=== PATIENT | female | born 1975 | race Caucasian/White ===

== ENCOUNTER 2016-11-25 22:04 | Emergency (ER) | payer MEDICARE, MEDICAID ==
[~2016-11-25] VITALS: Ht 160 cm; Wt 136.1 kg
[~2016-11-25 22:04] MED LIST: AGM875T PO; ALBU0.632 IH; ALBU2.5V52 INH; ALBU8.5H2 IH; AMMO120C3 TP; ASP81CT PO; AZAT50TA PO; AZIT500T PO; AZTH50T PO; BENZ200C25 PO; BPR150TCR PO; BUDE0.5A5 IH; BUME2TAB3 PO; CALC-52 PO; CARDIZEM; CARV3.12 PO; CEFA1TAB PO; CEFD300C16 PO; CELE50CA PO; CEPH500C PO; CHOL500019 PO; CLCX100C PO; CLN150C PO; CTLP20T PO; DIAZ5TAB3 PO; DIPH1TAB25 PO; DOXY100C2 PO; DULO30CA PO; DULO30CA3 PO; DULO60CA58 PO; DULO60CA6 PO; ERGO500028 PO; FAMO20TA13 PO; FENO145T20 PO; FENO160T PO; FENO160T6 PO; FERR-57 PO; FLT05NA16 NSEACH; FLT11013 IH; FLUT16SP22; FORM20VI IH; FRSM40T PO; FURO20TA4 PO; FURO40TA4 PO; FURO80TA PO; FURO80TA3 PO; GABA-488 PO; GABA300C PO; GABA600T2 PO; GBPN100C PO; GLIP5TAB13 PO; HYDR1CAP2 PO; IBP600T1 PO; IBUP200T48 PO; INSULIN; IPRA3AMP11 INH; KCL 10 MEQ PO; KCL20TCR PO; LEVO500T69 PO; LEVO500T78 PO; LEVO750T6 PO; LVT.05T PO; MAGN400C PO; MAGN400T6 PO; MELO-195 PO; METH500T7 PO; METH750T3 PO; METO25TA PO; METO5TAB38 PO; MNTL10T PO; MONT10TA24 PO; MORP15TA PO; MORP15TA8 PO; MTL2.5T PO; MTL5T PO; MTP25TSR PO; MULT1TAB61 PO; NCT14P TD; NCT14P TOP; OMEP20CA12 PO; ONDAN4ODT PO; OXC5T PO; OXYC-272 PO; OXYC-465 PO; OXYC10TA8 PO; OXYC15TA74 PO; OXYGEN; PANT40TA PO; PANT40TA2 PO; PANT40TA3 PO; PHEN200T27 PO; PHOS250T5 PO; PNT40TEC PO; POTA10CA43 PO; POTA20TA15 PO; POTA20TA7 PO; POTA8CAP9 PO; POTASSIUM CHLORIDE PO; PRD10T PO; PRD20T PO; PRED10TA PO; PREG100C22 PO; PREG50C PO; ROPI0.25 PO; ROPI1TAB2 PO; ROPI2TAB4 PO; RPN.25T PO; SENN1TAB27 PO; SLMFT1E INH; SPIR25TA3 PO; SPRN25T PO; SULF1TAB38 PO; TIOT18CA IH; TIOT18CA2 IH; TIZA2TAB3 PO; TIZA4TAB55 PO; TRAZ150T42 PO; VARE1TAB17 PO; [UNRECOGNIZED DRUG - CODE] PO; [UNRECOGNIZED DRUG - OTHER] PO; oxygen; vicodin PO
--- OUTSIDE RECORDS SUMMARY | 2016-11-25 22:12 | XMS REPORT | Continuity of Care Document ---
Author Author [facility] Organization [facility] Address Unknown Phone Unavailable Care Team Providers Care Industry Analyst Name Role Phone Alfonzo Cris PCP [phone] Source Comments Some departments are not documenting in the electronic medical record. If you do not see the information that you expected, contact Release of Information in the Health Information Management department at [phone] for further assistance in locating additional records.[facility] Active Allergies and Adverse Reactions Allergen Noted Date Severity Reactions Comments Erythromycin 06/08/2013 STOMACH UPSET Tylenol 06/08/2013 UNKNOWN, SEE COMMENTS Per patient has caused increased LFTs in the past Current Medications Prescription Sig. Disp. Refills Start End Date Status Date tiotropium (SPIRIVA) 18 Inhale 18 mcg by mouth Active mcg capsule for inhaler daily. levothyroxine (SYNTHROID) Take 50 mcg by mouth Active 50 mcg tablet daily. montelukast (SINGULAIR) Take 10 mg by mouth at Active 10 mg tablet bedtime daily. rOPINIRole (REQUIP) 0.25 Take 0.25 mg by mouth Active mg tablet three times daily. budesonide respule Inhale 0.5 mg solution as Active (PULMICORT) 0.5 mg/2 mL directed twice daily. nebulizer solution furosemide (LASIX) 80 mg Take 80 mg by mouth twice Active tablet daily. spironolactone Take 25 mg by mouth Active (ALDACTONE) 25 mg tablet daily. magnesium oxide (MAG-OX) Take 400 mg by mouth Active 400 mg tablet daily. predniSONE (DELTASONE) 20 Take 20 mg by mouth Active mg tablet daily. azaTHIOprine (IMURAN) 50 Take 50 mg by mouth Active mg tablet daily. pantoprazole DR Take 40 mg by mouth Active (PROTONIX) 40 mg tablet daily. glipiZIDE CR (GLUCOTROL Take 2.5 mg by mouth Active XL) 2.5 mg tablet daily. cetirizine (ZYRTEC) 10 mg Take 10 mg by mouth Active tablet daily. ergocalciferol (VITAMIN Take 50,000 Units by Active D) 50,000 unit capsule mouth every Friday. phosphorus (PHOSPHA 250 Take 1 Tab by mouth three Active NEUTRAL) 250 mg tablet times daily. methocarbamol (ROBAXIN) Take 1,000 mg by mouth Active 500 mg tablet four times daily. potassium chloride SR Take 40 mEq by mouth Active (K-DUR) 20 mEq tablet twice daily. metolazone (ZAROXOLYN) Take 2.5 mg by mouth Active 2.5 mg tablet every morning. pregabalin (LYRICA) 100 Take 100 mg by mouth Active mg capsule three times daily. fenofibrate(+) (TRIGLIDE) Take 160 mg by mouth Active 160 mg tablet daily. DULoxetine [address] (CYMBALTA) Take 90 mg by mouth Active 60 mg capsule daily. albuterol 0.5% Inhale 2.5 mg solution as Active (PROVENTIL; VENTOLIN) 2.5 directed every 6 hours as mg/0.5 mL Nebu nebulizer needed. solution traMADol (ULTRAM) 50 mg Take 1 Tab by mouth every 30 Tab 0 07/03/20 Active tablet 6 hours as needed for 13 Pain. 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 Social History Tobacco Use Types Packs/Day Years Used Date Current Every Day Smoker Cigarettes 1.5 26 Smokeless Tobacco: Never Used Alcohol Use Drinks/Week oz/Week Comments No Last Filed Vital Signs Vital Sign Reading Time Taken Blood Pressure 149/82 11/26/2013 2:24 PM HYDROELECTRIC PRODUCTION TECHNICIAN Pulse 105 11/26/2013 2:24 PM HYDROELECTRIC PRODUCTION TECHNICIAN Temperature 36.6 C (97.9 F) 07/03/2013 7:38 AM CDT Respiratory Rate - - Height 1.676 m (5' 6") 11/26/2013 2:24 PM HYDROELECTRIC PRODUCTION TECHNICIAN Weight 152.862 kg (337 lb) 11/26/2013 2:24 PM HYDROELECTRIC PRODUCTION TECHNICIAN Body Mass Index 54.42 11/26/2013 2:24 PM HYDROELECTRIC PRODUCTION TECHNICIAN Oxygen Saturation 95% 07/03/2013 7:38 AM CDT Plan of Care Health Maintenance Due Date Last Done Comments Physical (Comprehensive) 01/04/1983 Exam Pertussis Vaccine 01/04/1987 Tetanus Vaccine 01/04/1993 Cervical Cancer Screening 01/04/1997 Influenza Vaccine 05/23/2016 Results from Last 3 Months Not on file
[2016-11-25] MEDS ORDERED: CEPHALEXIN 250 MG (KEFLEX) CAP PO ONE (22:15)
[2016-11-25] MEDS ORDERED: LIDOCAINE 2% 20 ML (XYLOCAINE) VIAL INJ ONE (22:15)
--- NOTE | 2016-11-25 22:18 | ED Upper Extremity ---
General Stated Complaint: R THUMB LAC Source: patient Exam Limitations: no limitations History of Present Illness Time seen by provider: 22:14 Initial Comments To ER with a laceration of the dorsal aspect of the right thumb as she was trying to notch a dowel beatriz just prior to arrival. She arrives without oxygen Onset: this evening Severity: moderate Pain/Injury Location: right thumb Modifying Factors: Worse With Movement Allergies and Home Medications Allergies Coded Allergies: acetaminophen (Verified Allergy, Unknown, 06/09/14) erythromycin base (Verified Allergy, Unknown, PT CAN TAKE AZITHROMYCIN, ) minocycline (Verified Adverse Reaction, Mild, N/V, 06/09/14) Home Medications Calcium Citrate/Vitamin D3 1 Each Tablet 1 TAB PO DAILY (Reported) Carvedilol 3.125 Mg Tablet 3.125 MG PO BID (Reported) Duloxetine HCl 60 Mg Capsule.dr 60 MG PO BID (Reported) Gabapentin 300 Mg Capsule 300 MG PO TID (Reported) TAKES ALONG WITH 600MG TABLET Gabapentin 600 Mg Tablet 600 MG PO TID (Reported) TAKES ALONG WITH 300MG CAPSULE Ibuprofen 200 Mg Tablet 800 MG PO TID PRN PRN PAIN (Reported) TAKES 4 (200MG) TABLETS Levothyroxine Sodium 50 Mcg Tablet 50 MCG PO DAILY (Reported) Montelukast Sodium 10 Mg Tablet 10 MG PO HS (Reported) Multivitamins with Iron 1 Each Tab.chew 1 TAB.CHEW PO DAILY (Reported) Oxycodone HCl/Acetaminophen 1 Each Tablet 1 TAB PO TID PRN PRN PAIN (Reported) Pantoprazole Sodium 40 Mg Tablet.dr 40 MG PO DAILY (Reported) Ropinirole HCl 1 Mg Tablet 2 MG PO DAILY (Reported) TAKES 2 (1MG) TABLETS Ropinirole HCl 1 Mg Tablet 1 MG PO 1200,2100 (Reported) Tiotropium [place] 1 Inh Aerp 1 CAP IH DAILY PRN PRN SHORTNESS OF BREATH ( Reported) Tizanidine Hcl 4 Mg Tablet 4 MG PO TID (Reported) Constitutional: see HPI EENTM: see HPI Respiratory: no symptoms reported Cardiovascular: no symptoms reported Musculoskeletal: no symptoms reported Skin: see HPI Psychiatric/Neurological: No Symptoms Reported Past Crggydt-Dibsng-Bnmduo Hx Patient Social History Type Used: Cigarettes Former Smoker/When Quit: Nov 21, 2013 2nd Hand Smoke Exposure: Yes Recent Foreign Travel: No Contact w/Someone Who Travel: No Recent Hopitalizations: Yes Immunizations Up To Date Tetanus Booster (TDap): Less than 5yrs Date of Pneumonia Vaccine: Jun 22, 2016 Date of Influenza Vaccine: Jun 22, 2016 Seasonal Allergies Seasonal Allergies: No Surgeries HX Surgeries: Yes (VOCAL CORDS, BACK, KNEE SCOPE) Surgeries: Appendectomy, Gallbladder, Orthopedic, Tonsillectomy Respiratory Hx Respiratory Disorders: Yes Respiratory Disorders: Sleep Apnea, COPD Cardiovascular Hx Cardiac Disorders: Yes (CHF) Cardiac Disorders: Chronic Edema/Swelling, High Cholesterol Neurological Hx Neurological Disorders: Yes Neurological Disorders: Headaches /Migraines Reproductive System Hx Reproductive Disorders: No Sexually Transmitted Disease: No HIV/AIDS: No Female Reproductive Disorders: Menstrual Problems, Ovarian Cyst Genitourinary Hx Genitourinary Disorders: Yes Genitourinary Disorders: Renal Failure, UTI-Chronic Gastrointestinal Hx Gastrointestinal Disorders: Yes Gastrointestinal Disorders: Gastroesophageal Reflux, Liver Disease/Jaundice Musculoskeletal Hx Musculoskeletal Disorders: Yes ( RESTLESS LEG SYNDROME) Musculoskeletal Disorders: Fibromyalgia Endocrine Hx Endocrine Disorders: Yes Endocrine Disorders: Hypothyroidsim, Diabetes, Non-Insulin dep HEENT HX ENT Disorders: Yes (PARALYZED VOCAL CORDS/VOCAL CORD DYSFUNCTION) HEENT Disorders: Dysphagia Cancer Hx Cancer: No Psychosocial Hx Psychiatric Problems: Yes Behavioral Health Disorders: Depression Integumentary HX Skin/Integumentary Disorder: No (L Lower Leg cellulitis) Skin/Integumentary Disorders: Recent Skin Changes Blood Transfusions Hx Blood Disorders: No Adverse Reaction to a Blood Tr: No Family Medical History Significant Family History: Heart Disease, Hypertension Family Medial History: Family history: Hypertension 09 SISTER (43 ) Family history: Thyroid disorder 03 MOTHER (41 ) Stroke 03 FATHER (47 ) Physical Exam Vital Signs Capillary Refill : General Appearance: WD/WN no apparent distress HEENT: PERRL/EOMI normal ENT inspection Neck: non-tender full range of motion Respiratory: no respiratory distress no accessory muscle use Gastrointestinal: normal bowel sounds non tender soft Shoulder: normal inspection non-tender Elbow/Forearm: normal inspection, non-tender, Left Wrist: Yes normal inspection, Yes non-tender Hand: Left, laceration (1 semi-laceration to the dorsal aspect of the IP joint right thumb depth to this obtaining his tissues. She maintains flexion and extension abilities.) Neurologic/Tendon: normal sensation normal motor functions normal tendon functions Neurologic/Psychiatric: alert normal mood/affect Skin: normal color warm/dry Laceration Repair : Wound Location: Upper Extremities Wound Length (cm): 1 Wound's Depth, Shape: sub Q Wound Explored: clean Irrigated w/ Saline (ccs): 30 Betadine Prep?: Yes Anesthesia: 1% Lidocaine Volume Anesthetic (ccs): 1 Suture: Ethlion Suture Size: 5-0 Number of Sutures: 3 Layer Closure?: 1 Number Deep Layer Sutures: 0 Progress Area anesthetized locally with 1 mL of 2 percent lidocaine without epinephrine. Wound then scrubbed with waxing/saline solution and irrigated with 30 mL of the same. Wound then closed with 3 simple interrupted sutures size 5-0 Ethilon. Progress/Results/Core Measures Results/Orders My Orders Orders-ERICA MCPHERSON APRN Lidocaine 2% Injection 20 Ml (Xylocaine (11/25/16 22:15) Cephalexin Capsule (Keflex Capsule) (11/25/16 22:15) Departure Impression Impression: Primary Impression: Laceration of thumb Qualified Code: S61.011A - Laceration without foreign body of right thumb without damage to nail, initial encounter Disposition: HOME, SELF-CARE Condition: Stable Departure-Patient Inst. Decision time for Depature: 22:16 Referrals: NO,LOCAL PHYSICIAN (PCP/Family) Primary Care Physician Patient Instructions: Laceration Repair With Stitches (DC) Add. Discharge Instructions: 1. Return to the emergency room to have the stitches removed in 10 days 2. Return to ER before then for any sign of infection such as redness or swelling or fevers 3. You may shower and let water run over this starting tomorrow. However, do not soak it in water such as a hot tub, bath time, dish sink until the stitches are removed. ERICA MCPHERSON APRN Nov 25, 2016 22:18
[2016-11-25 22:34] VITALS: BP 0/0
== END 2016-11-25 22:34 | disposition home or self-care (01) ==
LOC: EDUNIT# 22:04 → ER 22:06
DX: S61.011A Laceration without foreign body of right thumb without damage to nail, initial encounter (principal); J44.9 Chronic obstructive pulmonary disease, unspecified; E11.9 Type 2 diabetes mellitus without complications; Z79.899 Other long term (current) drug therapy; Z87.891 Personal history of nicotine dependence; W45.8XXA Other foreign body or object entering through skin, initial encounter; Y99.8 Other external cause status
CPT/HCPCS: 12001

== ENCOUNTER → 2016-12-04 | Outpatient (CLI) | payer MEDICARE, MEDICAID ==
[~2016-12-04] MED LIST changes: +CLIN300C11 PO; +CLOT15CR4 TP; +LACT1CAP72 PO
--- OUTSIDE RECORDS SUMMARY | 2016-12-04 08:45 | XMS REPORT | Continuity of Care Document ---
Author Author [facility] Organization [facility] Address Unknown Phone Unavailable Care Team Providers Care Goat Driver Name Role Phone Alfonzo Cris PCP [phone] Source Comments Some departments are not documenting in the electronic medical record. If you do not see the information that you expected, contact Release of Information in the Health Information Management department at [phone] for further assistance in locating additional records.[facility] Active Allergies and Adverse Reactions Allergen Noted [...] Taken Blood Pressure 149/82 11/26/2013 2:24 PM [employer]ER Pulse 105 11/26/2013 2:24 PM [employer] Temperature 36.6 C (97.9 F) 07/03/2013 7:38 AM CDT Respiratory Rate - - Height 1.676 m (5' 6") 11/26/2013 2:24 PM [employer] Weight 152.862 kg (337 lb) 11/26/2013 2:24 PM [employer] Body Mass Index 54.42 11/26/2013 2:24 PM [employer] Oxygen Saturation 95% 07/03/2013 7:38 AM CDT Plan of Care Health Maintenance Due Date Last Done Comments Physical (Comprehensive) 01/04/1983 Exam Pertussis Vaccine 01/04/1987 Tetanus Vaccine 01/04/1993 Cervical Cancer Screening 01/04/1997 Influenza Vaccine 05/23/2016 Results from Last 3 Months Not on file
[2016-12-04 08:53] LABS: MEAN PLATELET VOLUME 9.6 FL (7.4-10.4); RED BLOOD COUNT 4.29 10^6/uL (4.35-5.85); RED CELL DISTRIBUTION WIDTH 16.1 % (10.0-14.5); WHITE BLOOD COUNT 18.4 10^3/uL (4.3-11.0)
[2016-12-04 09:17] LABS: ALANINE AMINOTRANSFERASE 17 U/L (0-55); ALBUMIN 3.8 G/DL (3.2-4.5); ANION GAP 11 MMOL/L (5-14); ASPARTATE AMINO TRANSFERASE 14 U/L (5-34); BILIRUBIN,TOTAL 0.2 MG/DL (0.1-1.0); BLOOD UREA NITROGEN 9 MG/DL (7-18); BUN/CREATININE RATIO 12; CALCIUM 8.9 MG/DL (8.5-10.1); CARBON DIOXIDE 23 MMOL/L (21-32); CHLORIDE 105 MMOL/L (98-107); CHOLESTEROL 132 MG/DL (< 200); CREATININE SERUM 0.73 MG/DL (0.60-1.30); DIRECT LDL 76 MG/DL (1-129); GFR ESTIMATED > 60; GLUCOSE 97 MG/DL (70-105); SODIUM 139 MMOL/L (135-145); TOTAL PROTEIN 6.5 G/DL (6.4-8.2); TRIGLYCERIDES 110 MG/DL (<150); VLDL CHOLESTEROL 22 MG/DL (5-40)
== END ==
LOC: LAB 08:41
PROVIDERS: ATTEND Family Medicine
DX: E78.5 Hyperlipidemia, unspecified (principal); D50.9 Iron deficiency anemia, unspecified
CPT/HCPCS: 36415; 80053; 80061; 85027

== ENCOUNTER 2016-12-05 18:28 | Emergency (ER) | payer MEDICARE, MEDICAID ==
[~2016-12-05] VITALS: Ht 167.6 cm; Wt 136.1 kg
[~2016-12-05 18:28] MED LIST changes: -CLIN300C11 PO; -CLOT15CR4 TP; -LACT1CAP72 PO
[2016-12-05 18:46] VITALS: BP 138/54
== END 2016-12-05 18:58 | disposition home or self-care (01) ==
LOC: EDUNIT# 18:28 → ER 18:29
DX: S61.011D Laceration without foreign body of right thumb without damage to nail, subsequent encounter (principal)

== ENCOUNTER 2016-12-13 17:51 | Emergency (ER) | payer MEDICARE, MEDICAID ==
[~2016-12-13] VITALS: Ht 167.6 cm; Wt 131.5 kg
[2016-12-13] MEDS ORDERED: oxyCODONE/APAP 5/325MG (PERCOCET 5) TABLET PO ONE (18:15)
[2016-12-13] MEDS ORDERED: KETOROLAC 60 MG/2 ML VIAL IM ONE (18:15)
--- NOTE | 2016-12-13 18:17 | ED Back Pain ---
General Chief Complaint: Back Problems Stated Complaint: BACK PAIN Nursing Triage Note: TO ROOM PER W/C ACCOMPIED BY 2 MALES REPORTS THAT SHE HAS CHRONIC BACK PAIN AND HER DR IN [place] DID NOT REFILL HER OXYCODONE. SHE TOOK MORPHINE 15MG PO LAST NIGHT THAT SHE HAD LEFT OVER DID NOT HELP PAIN Nursing Sepsis Screen: No Definite Risk Source of Information: Patient Exam Limitations: No Limitations History of Present Illness Time Seen by Provider: 18:15 Initial Comments To ER with reports of chronic back pain worse than usual that radiates down the right leg. This is been worse than usual for the past few days. She also reports swelling and redness of the left lower leg for the past 3 days. No fevers or chills. Regular doctor is Dr. alberto in [place] and reportedly he has stopped her oxycodone/morphine. No loss of bowel or bladder control. No saddle anesthesia. No history of cancer or IV drug use. Location: Lumbar Spine Timing/Duration: 2-3 Days Severity: Moderate Pain/Injury Location: Back Associated Symptoms: lower back pain Allergies and Home Medications Allergies Coded Allergies: acetaminophen (Verified Allergy, Unknown, 06/09/14) erythromycin base (Verified Allergy, Unknown, PT CAN TAKE AZITHROMYCIN, ) minocycline (Verified Adverse Reaction, Mild, N/V, 06/09/14) Home Medications Calcium Citrate/Vitamin D3 1 Each Tablet, 1 TAB PO DAILY, (Reported) Carvedilol 3.125 Mg Tablet, 3.125 MG PO BID, (Reported) Duloxetine HCl 60 Mg Capsule.dr, 60 MG PO BID, (Reported) Gabapentin 300 Mg Capsule, 300 MG PO TID, (Reported) TAKES ALONG WITH 600MG TABLET Gabapentin 600 Mg Tablet, 600 MG PO TID, (Reported) TAKES ALONG WITH 300MG CAPSULE Ibuprofen 200 Mg Tablet, 800 MG PO TID PRN for PAIN, (Reported) TAKES 4 (200MG) TABLETS Levothyroxine Sodium 50 Mcg Tablet, 50 MCG PO DAILY, (Reported) Montelukast Sodium 10 Mg Tablet, 10 MG PO HS, (Reported) Multivitamins with Iron 1 Each Tab.chew, 1 TAB.CHEW PO DAILY, (Reported) Oxycodone HCl/Acetaminophen 1 Each Tablet, 1 TAB PO TID PRN for PAIN, (Reported) Pantoprazole Sodium 40 Mg Tablet.dr, 40 MG PO DAILY, (Reported) Ropinirole HCl 1 Mg Tablet, 2 MG PO DAILY, (Reported) TAKES 2 (1MG) TABLETS Ropinirole HCl 1 Mg Tablet, 1 MG PO 1200,2100, (Reported) Tiotropium [place] 1 Inh Aerp, 1 CAP IH DAILY PRN for SHORTNESS OF BREATH, ( Reported) Tizanidine Hcl 4 Mg Tablet, 4 MG PO TID, (Reported) Constitutional: see HPI, No chills, No fever EENTM: see HPI Respiratory: no symptoms reported Cardiovascular: no symptoms reported Genitourinary: no symptoms reported Musculoskeletal: see HPI, back pain Skin: no symptoms reported Psychiatric/Neurological: No Symptoms Reported Past Zzzzpgv-Kytzss-Mmqfbq Hx Patient Social History Alcohol Use: Denies Use Recreational Drug Use: No Smoking Status: Current Everyday Smoker Type Used: Cigarettes Former Smoker/When Quit: Nov 21, 2013 2nd Hand Smoke Exposure: Yes Recent Foreign Travel: No Contact w/Someone Who Travel: No Recent Infectious Disease Expo: No Recent Hopitalizations: Yes Immunizations Up To Date Tetanus Booster (TDap): Less than 5yrs Date of Pneumonia Vaccine: Jun 22, 2016 Date of Influenza Vaccine: Jun 22, 2016 Seasonal Allergies Seasonal Allergies: No Surgeries HX Surgeries: Yes (VOCAL CORDS, BACK, KNEE SCOPE) Surgeries: Appendectomy, Gallbladder, Orthopedic, Tonsillectomy Respiratory Hx Respiratory Disorders: Yes Respiratory Disorders: Sleep Apnea, COPD Cardiovascular Hx Cardiac Disorders: Yes (CHF) Cardiac Disorders: Chronic Edema/Swelling, High Cholesterol Neurological Hx Neurological Disorders: Yes Neurological Disorders: Headaches /Migraines Reproductive System Hx Reproductive Disorders: No Sexually Transmitted Disease: No HIV/AIDS: No Female Reproductive Disorders: Menstrual Problems, Ovarian Cyst Genitourinary Hx Genitourinary Disorders: Yes Genitourinary Disorders: Renal Failure, UTI-Chronic Gastrointestinal Hx Gastrointestinal Disorders: Yes Gastrointestinal Disorders: Gastroesophageal Reflux, Liver Disease/Jaundice Musculoskeletal Hx Musculoskeletal Disorders: Yes ( RESTLESS LEG SYNDROME) Musculoskeletal Disorders: Fibromyalgia Endocrine Hx Endocrine Disorders: Yes Endocrine Disorders: Hypothyroidsim, Diabetes, Non-Insulin dep HEENT HX ENT Disorders: Yes (PARALYZED VOCAL CORDS/VOCAL CORD DYSFUNCTION) HEENT Disorders: Dysphagia Cancer Hx Cancer: No Psychosocial Hx Psychiatric Problems: Yes Behavioral Health Disorders: Depression Integumentary HX Skin/Integumentary Disorder: No (L Lower Leg cellulitis) Skin/Integumentary Disorders: Recent Skin Changes Blood Transfusions Hx Blood Disorders: No Adverse Reaction to a Blood Tr: No Family Medical History Significant Family History: Heart Disease, Hypertension Family Medial History: Family history: Hypertension 09 SISTER (43 ) Family history: Thyroid disorder 03 MOTHER (41 ) Stroke 03 FATHER (47 ) Physical Exam Vital Signs Vital Sign - Last 12Hours 12/13/16 17:54 Temp 97.6 Pulse 93 Resp 18 B/P (MAP) 136/79 Pulse Ox 96 O2 Delivery Room Air Capillary Refill : Less Than 3 Seconds General Appearance: No Apparent Distress, WD/WN, Chronically ill, Obese HEENT: PERRL/EOMI, TMs Normal Neck: Full Range of Motion, Normal Inspection Respiratory: No Accessory Muscle Use, No Respiratory Distress Gastrointestinal: Non Tender, Soft Extremity: Other (there is erythema and swelling to the left lower leg) Neurologic/Psychiatric: Alert, Oriented x3 Skin: Normal Color, Warm/Dry Laceration Repair : Suture Size: 5-0 Progress/Results/Core Measures Results/Orders Lab Results Laboratory Tests Test 12/13/16 18:29 Range/Units White Blood Count 13.5 H 4.3-11.0 10^3/uL Red Blood Count 4.36 4.35-5.85 10^6/uL Hemoglobin 12.1 11.5-16.0 G/DL Hematocrit 39 35-52 % Mean Corpuscular Volume 88 80-99 FL Mean Corpuscular Hemoglobin 28 25-34 PG Mean Corpuscular Hemoglobin Concent 31 L 32-36 G/DL Red Cell Distribution Width 16.1 H 10.0-14.5 % Platelet Count 358 130-400 10^3/uL Mean Platelet Volume 10.3 7.4-10.4 FL Neutrophils (%) (Auto) 78 H 42-75 % Lymphocytes (%) (Auto) 15 12-44 % Monocytes (%) (Auto) 5 0-12 % Eosinophils (%) (Auto) 2 0-10 % Basophils (%) (Auto) 0 0-10 % Neutrophils # (Auto) 10.6 H 1.8-7.8 X 10^3 Lymphocytes # (Auto) 2.0 1.0-4.0 X 10^3 Monocytes # (Auto) 0.7 0.0-1.0 X 10^3 Eosinophils # (Auto) 0.2 0.0-0.3 10^3/uL Basophils # (Auto) 0.1 0.0-0.1 10^3/uL My Orders Orders - ERICA MCPHERSON [employer] Cbc With Automated Diff (12/13/16 18:14) Us Venous Lower Ext Lt (12/13/16 18:14) Oxycodone/Apap 5/325mg Tablet (Percocet (12/13/16 18:15) Ketorolac Injection (Toradol Injection) (12/13/16 18:15) Medications Given in ED Current Medications Medications Dose Ordered Sig/Simon Route Start Time Stop Time Status Last Admin Dose Admin Ketorolac Tromethamine 60 mg ONCE ONCE IM 12/13/16 18:15 12/13/16 18:17 DC 12/13/16 18:21 60 MG Oxycodone/ Acetaminophen 1 tab ONCE ONCE PO 12/13/16 18:15 12/13/16 18:17 DC 12/13/16 18:21 1 TAB Vital Signs/I&O Vital Sign - Last 12Hours 12/13/16 17:54 Temp 97.6 Pulse 93 Resp 18 B/P (MAP) 136/79 Pulse Ox 96 O2 Delivery Room Air Blood Pressure Mean: 98 Departure Impression Impression: Primary Impression: Cellulitis of left ankle Disposition: 01 HOME, SELF-CARE Condition: Stable Departure-Patient Inst. Decision time for Depature: 19:25 Referrals: ARNAV ALBERTO DO (PCP/Family) Primary Care Physician Patient Instructions: Cellulitis (Skin Infection), Adult (DC), MANAGING YOUR CHRONIC PAIN Add. Discharge Instructions: 1. Return to ER for any concerns 2. Tylenol and Motrin for any fevers 3. Antibiotics as directed 4. Follow-up with your regular doctor next week for recheck All discharge instructions reviewed with patient and/or family. Voiced understanding. Scripts Lactobacillus Combo No.10 (Probiotic) 1 Each Capsule 1 EACH PO BID, #30 CAP Prov: ERICA MCPHERSON [employer] 12/13/16 Clindamycin HCl (Clindamycin HCl) 300 Mg Capsule 300 MG PO TID, #21 CAP Prov: ERICA MCPHERSON [employer] 12/13/16 ERICA MCPHERSON APRN Dec 13, 2016 18:17
[2016-12-13 18:35] LABS: BASOPHILS # (AUTO) 0.1 10^3/uL (0.0-0.1); BASOPHILS % (AUTO) 0 % (0-10); EOSINOPHILS # (AUTO) 0.2 10^3/uL (0.0-0.3); EOSINOPHILS % (AUTO) 2 % (0-10); LYMPHOCYTES % (AUTO) 15 % (12-44); MEAN CORPUSCULAR HEMOGLOBIN 28 PG (25-34); MEAN CORPUSCULAR HGB CONC 31 G/DL (32-36); MEAN CORPUSCULAR VOLUME 88 FL (80-99); MEAN PLATELET VOLUME 10.3 FL (7.4-10.4); MONOCYTES # (AUTO) 0.7 X 10^3 (0.0-1.0); MONOCYTES % (AUTO) 5 % (0-12); NEUTROPHILS # (AUTO) 10.6 X 10^3 (1.8-7.8); NEUTROPHILS % (AUTO) 78 % (42-75); PLATELET COUNT 358 10^3/uL (130-400); RED BLOOD COUNT 4.36 10^6/uL (4.35-5.85); RED CELL DISTRIBUTION WIDTH 16.1 % (10.0-14.5); WHITE BLOOD COUNT 13.5 10^3/uL (4.3-11.0)
[2016-12-13] MEDS ORDERED: CLIN300C11 PO (19:26)
[2016-12-13] MEDS ORDERED: LACT1CAP72 PO (19:26)
--- NOTE | 2016-12-13 19:34 | Diagnostic Imaging Report ---
PROCEDURE: US left lower extremity venous. TECHNIQUE: Multiple real-time grayscale images were obtained over the left lower extremity in various projections. Additional duplex Doppler and color Doppler images were also obtained. INDICATION: Lower extremity swelling and redness. FINDINGS: There is normal compression, flow and augmentation demonstrated from the left common femoral vein to the popliteal vein and visualized calf veins are patent. IMPRESSION: No sonographic evidence of left lower extremity deep venous thrombosis. Dictated by: Dictated on workstation # [id number]
[2016-12-13] MEDS ORDERED: LIDOCAINE 1% INJ 20 ML (XYLOCAINE) VIAL INJ ONE (19:45)
[2016-12-13] MEDS ORDERED: cefTRIAXone 1 GM (ROCEPHIN) VIAL IM ONE (19:45)
[2016-12-13 19:49] VITALS: BP 134/99
--- OUTSIDE RECORDS SUMMARY | 2016-12-15 13:29 | XMS REPORT | Continuity of Care Document ---
Author Author [facility] Organization [facility] Address Unknown Phone Unavailable Care Team Providers Care Harness Cutter Name Role Phone Alfonzo Cris PCP [phone] Source Comments Some departments are not documenting in the electronic medical record. If you do not see the information that you expected, contact Release of Information in the Health Information Management department at [phone] for further assistance in locating additional records.[facility] Active Allergies and Adverse Reactions Allergen [...] Taken Blood Pressure 149/82 11/26/2013 2:24 PM [employer]ST[employer]ARD[employer] Pulse 105 11/26/2013 2:24 PM [employer] Temperature 36.6 C (97.9 F) 07/03/2013 7:38 AM CDT Respiratory Rate - - Height 1.676 m (5' 6") 11/26/2013 2:24 PM [employer] ST[employer]ARD/STEWARDESS Weight 152.862 kg (337 lb) 11/26/2013 2:24 PM [employer]STEWARD[employer] Body Mass Index 54.42 11/26/2013 2:24 PM [employer] STEWARD/STEWARDESS Oxygen Saturation 95% 07/03/2013 7:38 AM CDT Plan of Care Health Maintenance Due Date Last Done Comments Physical (Comprehensive) 01/04/1983 Exam Pertussis Vaccine 01/04/1987 Tetanus Vaccine 01/04/1993 Cervical Cancer Screening 01/04/1997 Breast Cancer Screening 2016 Influenza Vaccine 05/23/2017 Results from Last 3 Months Not on file
--- OUTSIDE RECORDS SUMMARY | 2016-12-15 13:33 | XMS REPORT ---
Author Author ZENA UMANZOR Organization [employer] Address Unknown Phone Unavailable Care Team Providers Care French Tutor Name Role Phone EZNA UMANZOR CP Unavailable Allergies No Known Allergies Problems Problem Type Condition ICD-9 Code Onset Dates Condition Status Problem Chronic pain syndrome 338.4 Active Problem Unspecified anemia 285.9 Active Problem Leukocytosis, unspecified 288.60 Active Problem Nondependent tobacco use disorder 305.1 Active Problem Stridor 786.1 Active Problem Morbid obesity 278.01 Active Problem Phlebitis and thrombophlebitis of other deep vessels of lower extremities 451.19 Active Problem Pure hyperglyceridemia 272.1 Active Problem Swelling, mass, or lump in chest 786.6 Active Problem 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 Problem Diabetes mellitus without mention of complication, type II or unspecified type, not stated as uncontrolled 250.00 Active Problem Hypopotassemia 276.8 Active Problem Unspecified hypothyroidism 244.9 Active Problem Hypoxemia 799.02 Active Problem Enlargement of lymph nodes 785.6 Active Problem Hyposmolality and/or hyponatremia 276.1 Active Problem Other chronic nonalcoholic liver disease 571.8 Active Problem Lumbosacral spondylosis without myelopathy 721.3 Active Problem Cellulitis and abscess of leg, except foot 682.6 Active Problem Unspecified venous (peripheral) insufficiency 459.81 Active Problem Pain in soft tissues of limb 729.5 Active Problem Irregular menstrual cycle 626.4 Active Problem Unspecified chronic pulmonary heart disease 416.9 Active Problem Obesity hypoventilation syndrome 278.03 Active Problem Pain in joint, pelvic region and thigh 719.45 Active Problem Screening for diabetes mellitus V77.1 Active Problem Sarcoidosis 135 Active Problem Chronic airway obstruction, not elsewhere classified 496 Active Problem Counseling on substance use and abuse V65.42 Active Medications No Known Medications Results No Known Results Summary Purpose [employer] Submission
--- OUTSIDE RECORDS SUMMARY | 2016-12-15 13:42 | XMS REPORT ---
Author Author ZENA UMANZOR [facility] eClinicalWorks Address Unknown Phone Unavailable Care Team Providers Care Knife Edger Name Role Phone ZENA UMANZOR CP Unavailable Allergies No Known Allergies Problems Problem Type Condition Code Onset Dates Condition Status Assessment Encounter for immunization Z23 Active Problem Chronic pain syndrome 338.4 Active Problem [...] abuse V65.42 Active Medications No Known Medications Procedures Procedure Coding System Code Date SINGLE IMMUNIZATION ADMIN CPT-4 40969 Jul 07, 2015 FLUARIX QUAD (3 & UP)- CPT-4 64761 Jul 07, 2015 Results No Known Results Immunizations Vaccine Administration Date FLUARIX QUAD (3 & UP)-[facility]-2014Jul 07, 2015 Summary Purpose eClinicalWorks Submission
--- OUTSIDE RECORDS SUMMARY | 2016-12-24 17:05 | XMS REPORT ---
Author Author ZENA UMANZOR [facility] eClinicalWorks Address Unknown Phone Unavailable Care Team Providers Care Printed Circuit Boards Solder Leveler Name Role Phone ZENA UMANZOR CP Unavailable [...] Medications Procedures Procedure Coding System Code Date FLUZONE HIGH DOSE 65 AND UP 2015 CPT-4 23187 Jun 27, 2016 SINGLE IMMUNIZATION ADMIN CPT-4 54735 Jun 27, 2016 PPV23 (PNEUMOVAX) CPT-4 20473 Jun 27, 2016 IMMUNIZATION ADMIN, EACH ADD (please include units) CPT-4 91135 Jun 27, 2016 Results No Known Results Immunizations Vaccine Administration Date PPV23 (PNEUMOVAX) Jun 27, 2016 FLUZONE HIGH DOSE 65 AND UP 2015Jun 27, 2016 Summary Purpose eClinicalWorks Submission
== END 2016-12-13 19:49 | disposition home or self-care (01) ==
LOC: EDUNIT# 17:51 → ER 17:53
DX: M54.5 Low back pain (principal); G89.29 Other chronic pain; L03.116 Cellulitis of left lower limb; J44.9 Chronic obstructive pulmonary disease, unspecified; E66.9 Obesity, unspecified; F17.210 Nicotine dependence, cigarettes, uncomplicated; Z79.899 Other long term (current) drug therapy
CPT/HCPCS: 36415; 85025; 96372; 99281

== ENCOUNTER 2016-12-27 03:27 | Emergency (ER) | payer MEDICARE, MEDICAID ==
[~2016-12-27] VITALS: Ht 167.6 cm; Wt 136.1 kg
[~2016-12-27 03:27] MED LIST changes: +CLIN300C11 PO; +LACT1CAP72 PO
[2016-12-27] MEDS ORDERED: CLOT15CR4 TP (04:54)
--- NOTE | 2016-12-27 04:54 | ED General ---
General Chief Complaint: Skin/Wound Problems Stated Complaint: RASH ON FACE Nursing Triage Note: Pt c/o rash around mouth for "a few days" Nursing Sepsis Screen: No Definite Risk Source of Information: Patient Exam Limitations: No Limitations History of Present Illness Time Seen by Provider: 04:42 Initial Comments This 41-year-old woman presents to the emergency room with the irritation and itching of the skin in the perioral folds. Irritation has been present for about 3 days. She has been trying to clean it with alcohol and applying triple antibiotic ointment. She also tried hydrocortisone cream. Symptoms seem to be worsening. She denies any other symptoms. Allergies and Home Medications Allergies Coded Allergies: acetaminophen (Verified Allergy, Unknown, 06/09/14) erythromycin base (Verified Allergy, Unknown, PT CAN TAKE AZITHROMYCIN, ) minocycline (Verified Adverse Reaction, Mild, N/V, 06/09/14) Home Medications Calcium Citrate/Vitamin D3 1 Each Tablet, 1 TAB PO DAILY, (Reported) Carvedilol 3.125 Mg Tablet, 3.125 MG PO BID, (Reported) Clindamycin HCl 300 Mg Capsule, 300 MG PO TID, #21 Prescribed by: ERICA MCPHERSON on 12/13/161925 Clotrimazole/Betamethasone Dip 15 Gm Cream..g., 15 GM TP BID, #1 Prescribed by: DILCIA WILHELM on 12/27/16 0454 Duloxetine HCl 60 Mg Capsule., 60 MG PO BID, (Reported) Gabapentin 300 Mg Capsule, 300 MG PO TID, (Reported) TAKES ALONG WITH 600MG TABLET Gabapentin 600 Mg Tablet, 600 MG PO TID, (Reported) TAKES ALONG WITH 300MG CAPSULE Ibuprofen 200 Mg Tablet, 800 MG PO TID PRN for PAIN, (Reported) TAKES 4 (200MG) TABLETS Lactobacillus Combo No.10 1 Each Capsule, 1 EACH PO BID, #30 Prescribed by: ERICA MCPHERSON on 12/13/161925 Levothyroxine Sodium 50 Mcg Tablet, 50 MCG PO DAILY, (Reported) Montelukast Sodium 10 Mg Tablet, 10 MG PO HS, (Reported) Multivitamins with Iron 1 Each Tab.chew, 1 TAB.CHEW PO DAILY, (Reported) Oxycodone HCl/Acetaminophen 1 Each Tablet, 1 TAB PO TID PRN for PAIN, (Reported) Pantoprazole Sodium 40 Mg Tablet.dr, 40 MG PO DAILY, (Reported) Ropinirole HCl 1 Mg Tablet, 2 MG PO DAILY, (Reported) TAKES 2 (1MG) TABLETS Ropinirole HCl 1 Mg Tablet, 1 MG PO 1200,2100, (Reported) Tiotropium [place] 1 Inh Aerp, 1 CAP IH DAILY PRN for SHORTNESS OF BREATH, ( Reported) Tizanidine Hcl 4 Mg Tablet, 4 MG PO TID, (Reported) Constitutional: no symptoms reported EENTM: see HPI Respiratory: no symptoms reported Cardiovascular: no symptoms reported Gastrointestinal: no symptoms reported Skin: see HPI Past Pcigjxe-Fanzqr-Amvfcm Hx Patient Social History Alcohol Use: Denies Use Recreational Drug Use: No Smoking Status: Current Everyday Smoker Type Used: Cigarettes Former Smoker/When Quit: Nov 21, 2013 2nd Hand Smoke Exposure: Yes Recent Foreign Travel: No Contact w/Someone Who Travel: No Recent Infectious Disease Expo: No Recent Hopitalizations: No Immunizations Up To Date Tetanus Booster (TDap): Less than 5yrs Date of Pneumonia Vaccine: Jun 22, 2016 Date of Influenza Vaccine: Jun 22, 2016 Seasonal Allergies Seasonal Allergies: No Surgeries HX Surgeries: Yes (VOCAL CORDS, BACK, KNEE SCOPE) Surgeries: Appendectomy, Gallbladder, Orthopedic, Tonsillectomy Respiratory Hx Respiratory Disorders: Yes Respiratory Disorders: Sleep Apnea, COPD Cardiovascular Hx Cardiac Disorders: Yes (CHF) Cardiac Disorders: Chronic Edema/Swelling, High Cholesterol Neurological Hx Neurological Disorders: Yes Neurological Disorders: Headaches /Migraines Reproductive System Hx Reproductive Disorders: No Sexually Transmitted Disease: No HIV/AIDS: No Female Reproductive Disorders: Menstrual Problems, Ovarian Cyst Genitourinary Hx Genitourinary Disorders: Yes Genitourinary Disorders: Renal Failure, UTI-Chronic Gastrointestinal Hx Gastrointestinal Disorders: Yes Gastrointestinal Disorders: Gastroesophageal Reflux, Liver Disease/Jaundice Musculoskeletal Hx Musculoskeletal Disorders: Yes ( RESTLESS LEG SYNDROME) Musculoskeletal Disorders: Fibromyalgia Endocrine Hx Endocrine Disorders: Yes Endocrine Disorders: Hypothyroidsim, Diabetes, Non-Insulin dep HEENT HX ENT Disorders: Yes (PARALYZED VOCAL CORDS/VOCAL CORD DYSFUNCTION) HEENT Disorders: Dysphagia Cancer Hx Cancer: No Psychosocial Hx Psychiatric Problems: Yes Behavioral Health Disorders: Depression Integumentary HX Skin/Integumentary Disorder: No (L Lower Leg cellulitis) Skin/Integumentary Disorders: Recent Skin Changes Blood Transfusions Hx Blood Disorders: No Adverse Reaction to a Blood Tr: No Reviewed Nursing Assessment Reviewed/Agree w Nursing PMH: Yes Family Medical History Significant Family History: Heart Disease, Hypertension Family Medial History: Family history: Hypertension 09 SISTER (43 ) Family history: Thyroid disorder 03 MOTHER (41 ) Stroke 03 FATHER (47 ) Physical Exam Vital Signs Vital Sign - Last 12Hours 12/27/16 04:05 Temp 97.3 Pulse 80 Resp 20 B/P (MAP) 121/38 Pulse Ox 96 O2 Delivery Room Air Capillary Refill : Less Than 3 Seconds General Appearance: No Apparent Distress, WD/WN HEENT: PERRL/EOMI, Pharynx Normal, Other (There is erythema and inflammation in the perioral folds.) Neck: Normal Inspection Respiratory: No Respiratory Distress Neurologic/Psychiatric: Alert, Oriented x3, No Motor/Sensory Deficits, Normal Mood/Affect, psychology intern II-XII Norm as Tested Skin: Warm/Dry, Other (see above) Laceration Repair : Suture Size: 5-0 Progress/Results/Core Measures Results/Orders Vital Signs/I&O Vital Sign - Last 12Hours 12/27/16 12/27/16 04:05 04:57 Temp 97.3 97.3 Pulse 80 80 Resp 20 20 B/P (MAP) 121/38 Pulse Ox 96 96 O2 Delivery Room Air Blood Pressure Mean: 65 Departure Impression Impression: Primary Impression: Perioral dermatitis Disposition: 01 HOME, SELF-CARE Condition: Stable Departure-Patient Inst. Decision time for Depature: 04:45 Referrals: ARNAV ALBERTO DO (PCP/Family) Primary Care Physician Patient Instructions: Dermatitis Add. Discharge Instructions: Try using Lotrisone for a couple of days. If this does not improve the rash by itself, you may add antibiotic ointment. Return to your doctor if not improving within one week. Try to keep this area as dry as possible. All discharge instructions reviewed with patient and/or family. Voiced understanding. Scripts Clotrimazole/Betamethasone Dip (Lotrisone Cream) 15 Gm Cream..g. 15 GM TP BID, #1 TUBE Prov: DILCIA YEE MD 12/27/16 DILCIA YEE MD Dec 27, 2016 04:54
[2016-12-27 04:57] VITALS: BP 121/38
--- OUTSIDE RECORDS SUMMARY | 2017-01-27 01:31 | XMS REPORT | Continuity of Care Document ---
Author Author [facility] Organization [facility] Address Unknown Phone Unavailable Care Team Providers Care Associate Relations Specialist Name Role Phone Alfonzo Cris PCP [phone] Source Comments Some departments are not documenting in the electronic medical record. If you do not see the information that you expected, contact Release of Information in the Health Information Management department at [phone] for further assistance in locating additional records.[facility] Active Allergies and Adverse Reactions Allergen [...] Taken Blood Pressure 149/82 11/26/2013 2:24 PM DAY CAMP COUNSELOR Pulse 105 11/26/2013 2:24 PM DAY CAMP COUNSELOR Temperature 36.6 C (97.9 F) 07/03/2013 7:38 AM CDT Respiratory Rate - - Height 1.676 m (5' 6") 11/26/2013 2:24 PM DAY CAMP COUNSELOR Weight 152.862 kg (337 lb) 11/26/2013 2:24 PM DAY CAMP COUNSELOR Body Mass Index 54.42 11/26/2013 2:24 PM DAY CAMP COUNSELOR Oxygen Saturation 95% 07/03/2013 7:38 AM CDT Plan of Care Health Maintenance Due Date Last Done Comments Physical (Comprehensive) 01/04/1983 Exam Pertussis Vaccine 01/04/1987 Tetanus Vaccine 01/04/1993 Cervical Cancer Screening 01/04/1997 Breast Cancer Screening 2016 Influenza Vaccine 05/23/2017 Results from Last 3 Months Not on file
== END 2016-12-27 04:57 | disposition home or self-care (01) ==
LOC: EDUNIT# 03:27 → ER 03:30
DX: L71.0 Perioral dermatitis (principal); J44.9 Chronic obstructive pulmonary disease, unspecified; F17.210 Nicotine dependence, cigarettes, uncomplicated
CPT/HCPCS: 99281

== ENCOUNTER 2017-05-29 13:10 | Emergency (ER) | payer MEDICARE, MEDICAID ==
[~2017-05-29] VITALS: Ht 167.6 cm; Wt 136.1 kg
[~2017-05-29 13:10] MED LIST changes: +CLOT15CR4 TP
--- OUTSIDE RECORDS SUMMARY | 2017-05-29 13:17 | XMS REPORT | Clinical Summary ---
Author Author [facility] Organization [facility] Address Unknown Phone Unavailable Care Team Providers Care Network Security Analyst Name Role Phone PCP Unavailable Source Comments Some departments are not documenting in the electronic medical record. 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 Family History Medical History Relation Name Comments Hypertension Father Stroke Father Relation Name Status Comments Father Mother Alive Sister Alive Social History Tobacco Use Types Packs/Day Years Used Date Current Every Day Smoker Cigarettes 1.5 26 Smokeless Tobacco: Never Used Alcohol Use Drinks/Week oz/Week Comments No Sex Assigned at Date Recorded Not on file Last Filed Vital Signs Vital Sign Reading Time Taken Blood Pressure 149/82 11/26/2013 2:24 PM THERAPEUTIC RECREATION SPECIALIST Pulse 105 11/26/2013 2:24 PM THERAPEUTIC RECREATION SPECIALIST Temperature 36.6 C (97.9 F) 07/03/2013 7:38 AM CDT Respiratory Rate - - Oxygen Saturation 95% 07/03/2013 7:38 AM CDT Inhaled Oxygen - - Concentration Weight 152.9 kg (337 lb) 11/26/2013 2:24 PM THERAPEUTIC RECREATION SPECIALIST Height 167.6 cm (5' 6") 11/26/2013 2:24 PM THERAPEUTIC RECREATION SPECIALIST Body Mass Index 54.39 11/26/2013 2:24 PM THERAPEUTIC RECREATION SPECIALIST Plan of Treatment Health Maintenance Due Date Last Done Comments PHYSICAL (COMPREHENSIVE) 01/04/1983 EXAM PERTUSSIS VACCINE 01/04/1987 TETANUS VACCINE 01/04/1993 CERVICAL CANCER SCREENING 01/04/2006 BREAST CANCER SCREENING 2016 INFLUENZA VACCINE 05/23/2017 Results Not on filefrom Last 3 Months
--- NOTE | 2017-05-29 15:35 | ED EENT ---
History of Present Illness General Chief Complaint: Oral/Throat Problems Stated Complaint: SORE THROAT/CANNOT SWALLOW/KKNOT ON RIGHT HIP Nursing Triage Note: Pt c/o sore throat x2-3 days and states it hurts to swallow. Pt also c/o "knot" on R side x2-3 months. History of Present Illness Time seen by provider: 15:15 Initial Comments Evaluation for sore throat, reports drainage in her throat, she is taking Tylenol sinus. She has a history of previous surgery on the vocal cords, speaks with a hoarse lower voice. Denies any fevers and does not have a current family healthcare provider. Timing/Duration: gradual Severity: mild Prearrival Treatment: over the counter meds Modifying Factors: Improves With Rest, Improves With Other (cold fluid) Associated Symptoms: No facial pain/swelling, No fever, nasal congestion/ drainage, No sinus infection, sore throat, No voice change Allergies and Home Medications Allergies Coded Allergies: acetaminophen (Verified Allergy, Unknown, 06/09/14) erythromycin base (Verified Allergy, Unknown, PT CAN TAKE AZITHROMYCIN, ) minocycline (Verified Adverse Reaction, Mild, N/V, 06/09/14) Home Medications Calcium Citrate/Vitamin D3 1 Each Tablet, 1 TAB PO DAILY, (Reported) Carvedilol 3.125 Mg Tablet, 3.125 MG PO BID, (Reported) Clindamycin HCl 300 Mg Capsule, 300 MG PO TID, #21 Prescribed by: ERICA MCPHERSON on 12/13/161925 Clotrimazole/Betamethasone Dip 15 Gm Cream..g., 15 GM TP BID, #1 Prescribed by: DILCIA WILHELM on 12/27/16 0454 Duloxetine HCl 60 Mg Capsule.dr, 60 MG PO BID, (Reported) Gabapentin 300 Mg Capsule, 300 MG PO TID, (Reported) TAKES ALONG WITH 600MG TABLET Gabapentin 600 Mg Tablet, 600 MG PO TID, (Reported) TAKES ALONG WITH 300MG CAPSULE Ibuprofen 200 Mg Tablet, 800 MG PO TID PRN for PAIN, (Reported) TAKES 4 (200MG) TABLETS Lactobacillus Combo No.10 1 Each Capsule, 1 EACH PO BID, #30 Prescribed by: ERICA MCPHERSON on 12/13/161925 Levothyroxine Sodium 50 Mcg Tablet, 50 MCG PO DAILY, (Reported) Montelukast Sodium 10 Mg Tablet, 10 MG PO HS, (Reported) Multivitamins with Iron 1 Each Tab.chew, 1 TAB.CHEW PO DAILY, (Reported) Oxycodone HCl/Acetaminophen 1 Each Tablet, 1 TAB PO TID PRN for PAIN, (Reported) Pantoprazole Sodium 40 Mg Tablet.dr, 40 MG PO DAILY, (Reported) Ropinirole HCl 1 Mg Tablet, 2 MG PO DAILY, (Reported) TAKES 2 (1MG) TABLETS Ropinirole HCl 1 Mg Tablet, 1 MG PO 1200,2100, (Reported) Tiotropium [place] 1 Inh Aerp, 1 CAP IH DAILY PRN for SHORTNESS OF BREATH, ( Reported) Tizanidine Hcl 4 Mg Tablet, 4 MG PO TID, (Reported) Review of Systems Constitutional: no symptoms reported, see HPI All Other Systems Reviewed Negative Unless Noted: Yes Past Uznkavz-Iuvecy-Owvqqh Hx Patient Social History Alcohol Use: Denies Use Recreational Drug Use: No Smoking Status: Former Smoker Type Used: Cigarettes 2nd Hand Smoke Exposure: Yes Recent Foreign Travel: No Contact w/Someone Who Travel: No Recent Infectious Disease Expo: No Recent Hopitalizations: No Physical Abuse: No Sexual Abuse: No Immunizations Up To Date Tetanus Booster (TDap): Less than 5yrs Date of Pneumonia Vaccine: Jun 22, 2016 Date of Influenza Vaccine: Jun 22, 2016 Seasonal Allergies Seasonal Allergies: No Surgeries History of Surgeries: Yes (VOCAL CORDS, BACK, KNEE SCOPE) Surgeries: Appendectomy, Gallbladder, Orthopedic, Tonsillectomy Respiratory History of Respiratory Disorde: Yes Respiratory Disorders: Sleep Apnea, COPD Currently Using CPAP: No Currently Using BIPAP: No Cardiovascular History of Cardiac Disorders: Yes (CHF) Cardiac Disorders: Chronic Edema/Swelling, High Cholesterol Neurological History of Neurological Disord: Yes Neurological Disorders: Headaches /Migraines Reproductive System Hx Reproductive Disorders: No Sexually Transmitted Disease: No HIV/AIDS: No Female Reproductive Disorders: Menstrual Problems, Ovarian Cyst Genitourinary Genitourinary Disorders: Renal Failure, UTI-Chronic Gastrointestinal History of Gastrointestinal Di: Yes Gastrointestinal Disorders: Gastroesophageal Reflux, Liver Disease/Jaundice Musculoskeletal History of Musculoskeletal Dis: Yes ( RESTLESS LEG SYNDROME) Musculoskeletal Disorders: Fibromyalgia Endocrine History of Endocrine Disorders: Yes Endocrine Disorders: Hypothyroidsim, Diabetes, Non-Insulin dep HEENT HEENT Disorders: Dysphagia Cancer History of Cancer: No Psychosocial History of Psychiatric Problem: Yes Behavioral Health Disorders: Depression Suicide Risk Score: 0 Integumentary History of Skin or Integumenta: No (L Lower Leg cellulitis) Skin/Integumentary Disorders: Recent Skin Changes Blood Transfusions History of Blood Disorders: No Adverse Reaction to a Blood Tr: No Reviewed Nursing Assessment Reviewed/Agree w Nursing PMH: Yes Family Medical History Significant Family History: Heart Disease, Hypertension Family Medial History: Family history: Hypertension 09 SISTER (43 ) Family history: Thyroid disorder 03 MOTHER (41 ) Stroke 03 FATHER (47 ) Physical Exam Vital Signs Vital Sign - Last 12Hours 05/29/17 13:47 Temp 97.4 Pulse 78 Resp 18 B/P (MAP) 148/80 Pulse Ox 95 O2 Delivery Room Air General Appearance: WD/WN, no apparent distress Eyes: bilateral eye normal inspection, bilateral eye PERRL, bilateral eye EOMI Ears: bilateral ear auricle normal, bilateral ear canal normal, bilateral ear TM normal Nose: normal inspection, No discharge, No sinus tenderness Mouth/Throat: normal mouth inspection, pharynx normal, other (clear postnasal drainage noted) Neck: non-tender, full range of motion, supple, normal inspection Cardiovascular: normal peripheral pulses, regular rate, rhythm Respiratory: chest non-tender, lungs clear, normal breath sounds Gastrointestinal: normal bowel sounds, non tender, soft Neurologic/Psychiatric: no motor/sensory deficits, alert, normal mood/affect, oriented x 3 Skin: normal color, warm/dry Laceration Repair : Suture Size: 5-0 Progress/Results/Core Measures Results/Orders Lab Results Laboratory Tests Test 05/29/17 14:30 Range/Units Group A Streptococcus Screen NEGATIVE NEGATIVE Vital Signs/I&O Vital Sign - Last 12Hours 05/29/17 05/29/17 13:47 15:46 Temp 97.4 97.4 Pulse 78 78 Resp 18 18 B/P (MAP) 148/80 Pulse Ox 95 95 O2 Delivery Room Air Blood Pressure Mean: 102 Departure Impression Impression: Primary Impression: Allergic rhinitis Qualified Codes: J30.2 - Other seasonal allergic rhinitis Disposition: 01 HOME, SELF-CARE Condition: Stable Departure-Patient Inst. Decision time for Depature: 15:30 Referrals: NO,LOCAL PHYSICIAN (PCP/Family) Primary Care Physician Patient Instructions: Seasonal Allergies in Adults Add. Discharge Instructions: Increase water intake. Warm water and salt, gargle every 2-3 hours. Alternate Tylenol 650 mg and ibuprofen 600 mg every 4 hours. May use xtaj-lng-jwrejjc allergy medication, Zyrtec or Claritin as directed. Start nasal steroid, Flonase or Nasonex as directed per bottle. Return to emergency department for temperature greater than 101, inability to eat or drink due to throat pain, new problems or concerns. See listing of local medical providers for establishing care with a primary care physician. All discharge instructions reviewed with patient and/or family. Voiced understanding. Work/School Note: Local Medical Staff Listing MARY MARMOLEJO May 29, 2017 15:35
[2017-05-29 15:46] VITALS: BP 148/80
== END 2017-05-29 15:46 | disposition home or self-care (01) ==
LOC: EDUNIT# 13:10 → ER 13:12
DX: J30.9 Allergic rhinitis, unspecified (principal); J44.9 Chronic obstructive pulmonary disease, unspecified; G47.30 Sleep apnea, unspecified; E78.00 Pure hypercholesterolemia, unspecified; I50.9 Heart failure, unspecified; G43.909 Migraine, unspecified, not intractable, without status migrainosus; K21.9 Gastro-esophageal reflux disease without esophagitis; E03.9 Hypothyroidism, unspecified; E11.9 Type 2 diabetes mellitus without complications; F32.9 Major depressive disorder, single episode, unspecified; Z82.49 Family history of ischemic heart disease and other diseases of the circulatory system; Z87.19 Personal history of other diseases of the digestive system; Z87.440 Personal history of urinary (tract) infections; Z87.448 Personal history of other diseases of urinary system; Z87.891 Personal history of nicotine dependence; Z90.49 Acquired absence of other specified parts of digestive tract; Z90.89 Acquired absence of other organs
CPT/HCPCS: 87430; 99282

== ENCOUNTER 2017-06-01 15:40 | Inpatient (IN) | payer MEDICARE, MEDICAID ==
[~2017-06-01] VITALS: Ht 167.6 cm; Wt 137.7 kg
[2017-06-01] MEDS ORDERED: ASPIRIN 81 MG CHEW (CHILDREN'S ASA) PO ONE (16:00)
--- NOTE | 2017-06-01 16:09 | Diagnostic Imaging Report ---
INDICATION: Chest pain with shortness of breath. COMPARISON: 08/19/2016. FINDINGS: There has been increase in cardiac size. There does appear to be developing bilateral interstitial and alveolar infiltrates with pulmonary venous congestion. No consolidated infiltrates are noted. No pleural effusion. IMPRESSION: 1. Cardiomegaly with interstitial and alveolar infiltrates, consistent with developing congestive failure. Dictated by: Dictated on workstation # [id number]
[2017-06-01 16:14] LABS: ABG BASE EXCESS 1.8 MMOL/L (-2.5-2.5); ABG HCO3 27 MMOL/L (23-27); ABG OXYGEN SATURATION 94 % (94-100); ABG PCO2 49 MMHG (35-45); ABG PH 7.35 (7.37-7.43); ABG PO2 66 MMHG (79-93); ABG TCO2 28.3 MMOL/L (21.0-31.0)
--- NOTE | 2017-06-01 16:14 | ED Cardiac General ---
History of Present Illness General Chief Complaint: Chest Pain Stated Complaint: CHEST PAIN, MIGRAINE Nursing Triage Note: ARRIVED VIA AMB TO ROOM 10 WITH CHEST PAIN X2 DAYS Source: patient, old records History of Present Illness Time seen by provider: 15:41 Initial Comments PT ARRIVES VIA POV FROM HOME C/O CHEST PAIN FOR A COUPLE OF DAYS--FEELS LIKE A HEAVY WEIGHT SITTING ON HER CHEST, IS CONSTANT AND GETTING WORSE NOTHING WORSENS OR IMPROVES PAION NO SWELLING IN LEGS/ FEET OR PAIN IN [place]ES DENIES SHORTNESS OF BREATH--BUT O2 SAT IS 80% ON ROOM AIR ON ARRIVAL--STATES SHE WAS ON HOME O2 FOR A COUPLE OF YEARS, BUT QUIT WEARING IT BECAUSE "SHE DIDN' T THINK SHE NEEDED IT" --PT HAS COPD AND CONTINUES TO SMOKE OVER 2 PPD PT STATES SHE HAS HAD NAUSEA AND VOMITED X 1 THIS AM--NO INTAKE TODAY NO SIGNIFICANT COUGH NO FEVER/SWEATS/CHILLS C/O HEADACHE AND WANTING PAIN MEDICATION FOR HER HEADACHE SOON SHE ARRIVES. SEEN IN ER 05/29/17 FOR SORE THROAT, WAS DX WITH ALLERGIC RHINITIS. NO RX. PT WITH A MULTITUDE OF VISITS--MANY FOR RESPIRATORY ISSUES. ALSO HAS HISTORY OF CHF NTG SL SEARCH ENGINE MARKETING SPECIALIST: No ASA po SEARCH ENGINE MARKETING SPECIALIST: No NO PCP--STATES SHE USED TO HAVE A PCP IN [place], BUT WAS FIRED FROM THE PRACTICE DUE TO NON-COMPLIANCE IN ALL ASPECTS OF CARE. SMOKE AND FLAME SPECIALIST: DR ERIC Allergies and Home Medications Allergies Coded Allergies: acetaminophen (Verified Allergy, Unknown, 06/09/14) erythromycin base (Verified Allergy, Unknown, PT CAN TAKE AZITHROMYCIN, ) minocycline (Verified Adverse Reaction, Mild, N/V, 06/09/14) Home Medications Atorvastatin Calcium 20 Mg Tablet, 20 MG PO DAILY, (Reported) LAST FILLED #30 01-08-17 Carvedilol 3.125 Mg Tablet, 3.125 MG PO BID, (Reported) LAST FILLED #60 01-08-17 Furosemide 40 Mg Tablet, 40 MG PO q48 HRS, #30 Ref 1 Prescribed by: BEV BAIN on 06/03/17 1414 Potassium Chloride 20 Meq Tab.er.prt, 20 MEQ PO Q48H, #30 Ref 1 Prescribed by: BEV BAIN on 06/03/17 1414 Review of Systems Constitutional: no symptoms reported, No chills, No diaphoresis, No dizziness, No fever EENTM: No Symptoms Reported Respiratory: Denies Cough, Denies Orthopnea, Denies Shortness of Air Cardiovascular: See HPI, Chest Pain, Denies Edema, Denies Irregular Heart Rate , Denies Lightheadedness, Denies Palpitations, Denies Syncope Gastrointestinal: See HPI, Nausea, Denies Poor Fluid Intake, Vomiting Genitourinary: No Symptoms Reported Musculoskeletal: no symptoms reported Skin: no symptoms reported Psychiatric/Neurological: No Symptoms Reported Endocrine: No Symptoms Reported Hematologic/Lymphatic: No Symptoms Reported Past Wjkxqqa-Cfatqn-Qzlfqg Hx Patient Social History Alcohol Use: Denies Use Recreational Drug Use: Yes (NARCOTIC OVERDOSE IN PAST) Smoking Status: Current Everyday Smoker (> 2 PPD) Type Used: Cigarettes 2nd Hand Smoke Exposure: Yes Recent Foreign Travel: No Contact w/Someone Who Travel: No Recent Infectious Disease Expo: No Recent Hopitalizations: No Immunizations Up To Date Tetanus Booster (TDap): Less than 5yrs Date of Pneumonia Vaccine: Jun 22, 2016 Date of Influenza Vaccine: Jun 22, 2016 Seasonal Allergies Seasonal Allergies: No Surgeries History of Surgeries: Yes ( BACK SURGERY; KNEE SCOPE; MEDIASTINAL LYMPH NODE BIOPSY 12/2012; VOCAL CORD SURGERY 06/2013; CARDIAC CATH 2013-NO INTERVENTION) Surgeries: Appendectomy, Gallbladder, Orthopedic, Tonsillectomy Respiratory History of Respiratory Disorde: Yes (HAS BEEN PREVIOUSLY DX WITH CHRONIC RESPIRATORY FAILURE WITH CO2 RETENTION AND HAS BEEN O2 AND STEROID DEPENDENT IN THE PAST ( DENIES CURRENT USE OF EITHER ON 06/01/17) , HAS BEEN ON BIPAP AT HS IN THE PAST ( PT NOT USING OF 06/01/17) PT HAS HAD DX OF SARCOIDOSIS IN THE PAST--UNSURE IF THIS HAS ACTUALLY BEEN VERIFIED; MEDIASTINAL LYMPHADENOPATHY-- BX NEGATIVE FOR MALIGNANCY: VOCAL CORD DYSFUNCTION; ) Respiratory Disorders: Sleep Apnea, COPD Currently Using CPAP: No Currently Using BIPAP: No Cardiovascular History of Cardiac Disorders: Yes (CHF;PULMONARY HTN) Cardiac Disorders: Chronic Edema/Swelling, High Cholesterol Neurological History of Neurological Disord: Yes Neurological Disorders: Headaches /Migraines, Neuropathy Reproductive System Hx Reproductive Disorders: No Sexually Transmitted Disease: No HIV/AIDS: No Female Reproductive Disorders: Menstrual Problems, Ovarian Cyst Genitourinary History of Genitourinary Disor: Yes Genitourinary Disorders: Renal Failure, UTI-Chronic Gastrointestinal History of Gastrointestinal Di: Yes (FATTY LIVER DISEASE) Gastrointestinal Disorders: Gastroesophageal Reflux, Liver Disease/Jaundice, Gastrointestinal Bleed, Esophagitis, Hiatal Hernia Musculoskeletal History of Musculoskeletal Dis: Yes ( RESTLESS LEG SYNDROME) Musculoskeletal Disorders: Arthritis, Fibromyalgia, Chronic Back Pain Endocrine History of Endocrine Disorders: Yes (MORBID OBESITY) Endocrine Disorders: Hypothyroidsim, Diabetes, Non-Insulin dep HEENT History of HEENT Disorders: Yes ("VOCAL CORD DYSFUNCTION" ) HEENT Disorders: Dysphagia Cancer History of Cancer: No Psychosocial History of Psychiatric Problem: Yes (NARCOTIC OVERDOSE 12/2012) Behavioral Health Disorders: Anxiety, Depression Integumentary History of Skin or Integumenta: Yes (CHRONIC LEFT LEG CELLULITIS) Blood Transfusions History of Blood Disorders: No Adverse Reaction to a Blood Tr: No Family Medical History Significant Family History: Heart Disease, Hypertension Family Medial History: Family history: Hypertension 09 SISTER (43 ) Family history: Thyroid disorder 03 MOTHER (41 ) Stroke 03 FATHER (47 ) Physical Exam Vital Signs Vital Sign - Last 12Hours 06/01/17 06/01/17 15:45 16:01 Temp 98.0 Pulse 74 Resp 18 B/P (MAP) 164/93 Pulse Ox 80 O2 Delivery Room Air O2 Flow Rate 3.00 Capillary Refill : Less Than 3 Seconds General Appearance: No Apparent Distress, Obese (MORBIDLY), Other (REEKS OF CIGARETTES. TALKS IN WHISPER, DIRTY, MALODOROOUS) HEENT: PERRL/EOMI Neck: Full Range of Motion, Normal Inspection, Non Tender, Supple Respiratory: Normal Breath Sounds, No Accessory Muscle Use, No Respiratory Distress, Decreased Breath Sounds (IN BASES) Cardiovascular: Regular Rate, Rhythm, No Edema, No JVD, No Murmur, Normal Peripheral Pulses Gastrointestinal: Non Tender, Soft Extremity: Normal Inspection, Normal Range of Motion, Non Tender, No Calf Tenderness, No Pedal Edema Neurologic/Psychiatric: Alert, Oriented x3, No Motor/Sensory Deficits, Normal Mood/Affect, stencil machine operator II-XII Norm as Tested Skin: Normal Color, Warm/Dry, Tattoos/Piercings (MULTIPLE TATTOOS) Laceration Repair : Suture Size: 5-0 Progress/Results/Core Measures Results/Orders Lab Results Laboratory Tests Test 06/01/17 16:05 06/01/17 16:15 Range/Units Blood Gas Puncture Site RR Blood Gas Patient Temperature 98.7 Arterial Blood pH 7.35 L 7.37-7.43 Arterial Blood Partial Pressure CO2 49 H 35-45 MMHG Arterial Blood Partial Pressure O2 66 L 79-93 MMHG Arterial Blood HCO3 27 23-27 MMOL/L Arterial Blood Total CO2 28.3 21.0-31.0 MMOL/L Arterial Blood Oxygen Saturation 94 94-100 % Arterial Blood Base Excess 1.8 -2.5-2.5 MMOL/L [place] Test YES-POS Blood Gas Ventilator Setting NO Blood Gas Inspired Oxygen 3.5L White Blood Count 12.2 H 4.3-11.0 10^3/uL Red Blood Count 4.40 4.35-5.85 10^6/uL Hemoglobin 12.5 11.5-16.0 G/DL Hematocrit 41 35-52 % Mean Corpuscular Volume 93 80-99 FL Mean Corpuscular Hemoglobin 28 25-34 PG Mean Corpuscular Hemoglobin Concent 31 L 32-36 G/DL Red Cell Distribution Width 14.9 H 10.0-14.5 % Platelet Count 326 130-400 10^3/uL Mean Platelet Volume 10.3 7.4-10.4 FL Neutrophils (%) (Auto) 81 H 42-75 % Lymphocytes (%) (Auto) 12 12-44 % Monocytes (%) (Auto) 5 0-12 % Eosinophils (%) (Auto) 1 0-10 % Basophils (%) (Auto) 0 0-10 % Neutrophils # (Auto) 9.9 H 1.8-7.8 X 10^3 Lymphocytes # (Auto) 1.4 1.0-4.0 X 10^3 Monocytes # (Auto) 0.7 0.0-1.0 X 10^3 Eosinophils # (Auto) 0.1 0.0-0.3 10^3/uL Basophils # (Auto) 0.1 0.0-0.1 10^3/uL Prothrombin Time 12.5 12.2-14.7 SEC INR Comment 0.9 0.8-1.4 Activated Partial Thromboplast Time 32 24-35 SEC Sodium Level 142 135-145 MMOL/L Potassium Level 3.8 3.6-5.0 MMOL/L Chloride Level 106 98-107 MMOL/L Carbon Dioxide Level 26 21-32 MMOL/L Anion Gap 10 5-14 MMOL/L Blood Urea Nitrogen 8 7-18 MG/DL Creatinine 0.71 0.60-1.30 MG/DL Estimat Glomerular Filtration Rate > 60 BUN/Creatinine Ratio 11 Glucose Level 90 70-105 MG/DL Calcium Level 8.7 8.5-10.1 MG/DL Magnesium Level 1.8 1.8-2.4 MG/DL Total Bilirubin 0.3 0.1-1.0 MG/DL Aspartate Amino Transf (AST/SGOT) 11 5-34 U/L Alanine Aminotransferase (ALT/SGPT) 11 0-55 U/L Alkaline Phosphatase 120 40-136 U/L Total Creatine Kinase 23 L 29-168 U/L Creatine Kinase MB 0.6 <6.6 NG/ML Troponin I < 0.30 <0.30 NG/ML B-Type Natriuretic Peptide 312.2 H <100.0 PG/ML Total Protein 6.4 6.4-8.2 GM/DL Albumin 3.7 3.2-4.5 GM/DL Amylase Level 27 25-125 U/L Lipase 9 8-78 U/L My Orders Orders - CHRISTY MAR DO Ekg Tracing (06/01/17 15:42) Amylase (06/01/17 15:50) Cbc With Automated Diff (06/01/17 15:50) Comprehensive Metabolic Panel (06/01/17 15:50) Creatine Kinase (06/01/17 15:50) Creatine Kinase Mb (06/01/17 15:50) Lipase (06/01/17 15:50) Partial Thromboplastin Time (06/01/17 15:50) Protime With Inr (06/01/17 15:50) Troponin I (06/01/17 15:50) Chest 1 View, Ap/Pa Only (06/01/17 15:50) O2 (06/01/17 15:50) Aspirin Chewable Tablet (Baby Aspirin Ch (06/01/17 16:00) Rx-Nitroglycerin Sl Tabs (Rx-Nitrostat S (06/01/17 16:00) BNP (06/01/17 15:50) Monitor-Rhythm Ecg Trace Only (06/01/17 15:50) Arterial Blood Gas (06/01/17 15:53) Magnesium (06/01/17 15:53) Ketorolac Injection (Toradol Injection) (06/01/17 16:45) Furosemide Injection (Lasix Injection) (06/01/17 17:00) Nitroglycerin Ointment (Nitrobid Ointme (06/01/17 17:00) Medications Given in ED Vital Signs/I&O Vital Sign - Last 12Hours 06/01/17 06/01/17 15:45 16:01 Temp 98.0 Pulse 74 Resp 18 B/P (MAP) 164/93 Pulse Ox 80 O2 Delivery Room Air Nasal Cannula O2 Flow Rate 3.00 Blood Pressure Mean: 116 Progress Note : Progress Note CHEST PAIN RESOLVED WITH NTG X 3 VOMITED X 1 ON ARRIVAL--NAUSEA RELIEVED WITH ZOFRAN PLACED ON O2 AT 3L/NC AND SATS UP TO 94% ECG Initial ECG Impression Time: 15:46 Initial ECG Rate: 70 Initial ECG Rhythm: Normal Sinus Initial ECG Impression: Normal Initial ECG Comparisson: Unchanged Diagnostic Imaging Comments CXR--CARDIOMEGALY WITH ALVEOLAR INFILTRATES/VENOUS CONGESTION C/W CHF--PER RADIOLOGIST REPORT @ 1614 Reviewed: Reviewed by Me Departure Communication (Admissions) Progress Notes 3680--SPOKE WITH DR. VALLES, ACCEPTS PT FOR ADMIT Impression Impression: Primary Impression: Chest pain Additional Impressions: CHF (congestive heart failure) COPD EXACERBATION hypoxia NON-COMPLIANCY Smoker Morbid obesity Disposition: ADMITTED INPATIENT Condition: Improved Admissions Decision to Admit Reason: Admit from ER (General) Decision to Admit/Date: Jun 01, 2017 Time/Decision to Admit Time: 17:10 Departure-Patient Inst. Referrals: NO,LOCAL PHYSICIAN (PCP/Family) Primary Care Physician Scripts Potassium Chloride (Klor-Con M20) 20 Meq Tab.er.prt 20 MEQ PO Q48H, #30 1 Refill Prov: BEV BAINP 06/03/17 Furosemide (Lasix) 40 Mg Tablet 40 MG PO q48 HRS, #30 TAB 1 Refill Prov: BEV BAINP 06/03/17 CHRISTY MAR DO Jun 01, 2017 16:14
[2017-06-01 16:15] LABS: ALLENS TEST YES-POS
[2017-06-01] MEDS: RX-NITROGLYCERIN 0.4 MG TAB BTL 25'S SL PRN ×3 (16:15→16:40)
[2017-06-01 16:16] LABS: PATIENT TEMP 98.7
[2017-06-01 16:22] LABS: BASOPHILS # (AUTO) 0.1 10^3/uL (0.0-0.1); BASOPHILS % (AUTO) 0 % (0-10); EOSINOPHILS # (AUTO) 0.1 10^3/uL (0.0-0.3); EOSINOPHILS % (AUTO) 1 % (0-10); LYMPHOCYTES # (AUTO) 1.4 X 10^3 (1.0-4.0); LYMPHOCYTES % (AUTO) 12 % (12-44); MEAN CORPUSCULAR HEMOGLOBIN 28 PG (25-34); MEAN CORPUSCULAR HGB CONC 31 G/DL (32-36); MEAN CORPUSCULAR VOLUME 93 FL (80-99); MEAN PLATELET VOLUME 10.3 FL (7.4-10.4); MONOCYTES # (AUTO) 0.7 X 10^3 (0.0-1.0); MONOCYTES % (AUTO) 5 % (0-12); NEUTROPHILS # (AUTO) 9.9 X 10^3 (1.8-7.8); NEUTROPHILS % (AUTO) 81 % (42-75); PLATELET COUNT 326 10^3/uL (130-400); RED CELL DISTRIBUTION WIDTH 14.9 % (10.0-14.5); WHITE BLOOD COUNT 12.2 10^3/uL (4.3-11.0)
[2017-06-01 16:34] LABS: INR 0.9 (0.8-1.4); PROTHROMBIN TIME PATIENT 12.5 SEC (12.2-14.7)
[2017-06-01 16:44] LABS: ALANINE AMINOTRANSFERASE 11 U/L (0-55); ALBUMIN 3.7 GM/DL (3.2-4.5); AMYLASE 27 U/L (25-125); ANION GAP 10 MMOL/L (5-14); ASPARTATE AMINO TRANSFERASE 11 U/L (5-34); BILIRUBIN,TOTAL 0.3 MG/DL (0.1-1.0); BLOOD UREA NITROGEN 8 MG/DL (7-18); BUN/CREATININE RATIO 11; CALCIUM 8.7 MG/DL (8.5-10.1); CARBON DIOXIDE 26 MMOL/L (21-32); CHLORIDE 106 MMOL/L (98-107); CREATINE KINASE 23 U/L (29-168); CREATININE SERUM 0.71 MG/DL (0.60-1.30); GFR ESTIMATED > 60; GLUCOSE 90 MG/DL (70-105); LIPASE 9 U/L (8-78); MAGNESIUM 1.8 MG/DL (1.8-2.4); POTASSIUM 3.8 MMOL/L (3.6-5.0); SODIUM 142 MMOL/L (135-145); TOTAL PROTEIN 6.4 GM/DL (6.4-8.2)
[2017-06-01] MEDS ORDERED: KETOROLAC 30 MG/ML VIAL IVP ONE (16:45)
[2017-06-01 16:50] LABS: TROPONIN I < 0.30 NG/ML (<0.30)
[2017-06-01] MEDS ORDERED: FUROSEMIDE 40 MG/4 ML INJ (LASIX) IVP ONE (17:00)
[2017-06-01] MEDS ORDERED: NITROGLYCERIN 2% OINT 1 GM UNIT DOSE PACKET TOP ONE (17:00)
[2017-06-01 18:15] VITALS: BP 125/75
[2017-06-01 18:50] LABS: BASOPHILS # (AUTO) 0.1 10^3/uL (0.0-0.1); BASOPHILS % (AUTO) 0 % (0-10); EOSINOPHILS # (AUTO) 0.2 10^3/uL (0.0-0.3); EOSINOPHILS % (AUTO) 2 % (0-10); LYMPHOCYTES # (AUTO) 1.5 X 10^3 (1.0-4.0); LYMPHOCYTES % (AUTO) 12 % (12-44); MEAN CORPUSCULAR HEMOGLOBIN 29 PG (25-34); MEAN CORPUSCULAR HGB CONC 31 G/DL (32-36); MEAN CORPUSCULAR VOLUME 93 FL (80-99); MEAN PLATELET VOLUME 10.2 FL (7.4-10.4); MONOCYTES # (AUTO) 0.6 X 10^3 (0.0-1.0); MONOCYTES % (AUTO) 5 % (0-12); NEUTROPHILS # (AUTO) 10.1 X 10^3 (1.8-7.8); NEUTROPHILS % (AUTO) 81 % (42-75); PLATELET COUNT 326 10^3/uL (130-400); RED BLOOD COUNT 4.43 10^6/uL (4.35-5.85); RED CELL DISTRIBUTION WIDTH 14.8 % (10.0-14.5); WHITE BLOOD COUNT 12.5 10^3/uL (4.3-11.0)
[2017-06-01 19:08] LABS: LYMPHOCYTES % (MANUAL) 12 %; NEUTROPHILS % (MANUAL) 80 %; STOMATOCYTES MODERATE
[2017-06-01 19:14] LABS: MYOGLOBIN SERUM 29.8 NG/ML (10.0-92.0)
[2017-06-01 20:00] VITALS: BP 130/67
[2017-06-01] MEDS ORDERED: IBUPROFEN TABLET 200 MG TAB PO PRN (20:00)
[2017-06-01] MEDS: oxyCODONE/APAP 10/325MG (PERCOCET 10) TABLET PO PRN (20:36)
[2017-06-01] MEDS: MONTELUKAST 10 MG (SINGULAIR) TAB PO SCH (20:37)
[2017-06-01] MEDS: NovoLOG/HumaLOG RANGE A SC SCH (20:37)
[2017-06-01] MEDS: CARVEDILOL 3.125 MG (COREG) TABLET PO SCH (20:37)
[2017-06-01] MEDS: GABAPENTIN 300 MG (NEURONTIN) CAP PO SCH (20:37)
[2017-06-01] MEDS ORDERED: rOPINIRole 1 MG (REQUIP) TABLET PO ONE (21:00)
[2017-06-01] MEDS ORDERED: NON-FORMULARY MEDICATION 1 EA EA (Duloxetine HCl 60 MG) PO SCH (21:00)
[2017-06-01] MEDS: DULoxetine 30 MG (CYMBALTA) CAP PO SCH ×2 (21:25→21:36)
[2017-06-01] MEDS: FUROSEMIDE 40 MG/4 ML INJ (LASIX) IV SCH (23:22)
[2017-06-01] MEDS: NITROGLYCERIN 2% OINT 1 GM UNIT DOSE PACKET TOP SCH (23:25)
[2017-06-02] VITALS: BP 110/60
[2017-06-02 00:08] LABS: BILIRUBIN,URINE NEGATIVE (NEGATIVE); KETONES,URINE NEGATIVE (NEGATIVE); LEUKOCYTE ESTERASE ,URINE 1+ (NEGATIVE); NITRITE,URINE NEGATIVE (NEGATIVE); PH,URINE 6.5 (5-9); PROTEIN,URINE NEGATIVE (NEGATIVE); UROBILINOGEN,URINE NORMAL (NORMAL)
[2017-06-02 00:14] LABS: WBC,URINE RARE /HPF
[2017-06-02 04:00] VITALS: BP 152/93
[2017-06-02] MEDS: oxyCODONE/APAP 10/325MG (PERCOCET 10) TABLET PO PRN ×2 (05:12→18:47)
[2017-06-02] MEDS: FUROSEMIDE 40 MG/4 ML INJ (LASIX) IV SCH (05:15)
[2017-06-02] MEDS: NITROGLYCERIN 2% OINT 1 GM UNIT DOSE PACKET TOP SCH (05:15)
[2017-06-02] MEDS: NovoLOG/HumaLOG RANGE A SC SCH ×2 (05:16→12:19)
[2017-06-02 08:00] VITALS: BP 146/93
--- NOTE | 2017-06-02 08:39 | Consultation-Cardiology ---
HPI-Cardiology Cardiology Consultation: Date of Consultation 06/02/17 Time Seen by Provider: 08:30 Date of Admission 06-01-17 Attending Physician Chantell Soria MD Admitting Physician No,Local Physician Consulting Physician Jarret Burgess MD MA FACP [facility] HPI: Chief Complaint: Dyspnea Ms. Romo is a 42 year old female admitted to ICU 9 from the ED. She reports over the course of the last few days she had began to develop a sore throat and generally was not feeling well. She reports fever and chills at home. She reports chest tightness. She reports headache. She reports increasing shortness of breath and cough. She states she came in to the ED because she felt she was coming down with a respiratory illness. She states she feels her breathing is better today. She reports no further chest heaviness. She is reporting cramping in her legs this morning and headache. She denies any LE edema. No n/v/d. Review of Systems-Cardiology Review of Systems Constitutional: chills, fever, No lightheadedness, malaise Eyes: No blindness, No blurred vision, No drainage, No decreased acuity, No foreign body sensation, No pain, No vision change Ears/Nose/Throat: No chronic hearing loss, No ear discharge, No ear pain, No nasal drainage, throat pain, No ulcerations Respiratory: As described under HPI Cardiovascular: As described under HPI Gastrointestinal: No abdomen distended, No abdominal pain, No blood streaked bowels, No constipation, No diarrhea, No nausea, No vomiting, No stool coloration changes Genitourinary: No burning, No dysuria, No discharge, No frequency, No flank pain, No hematuria, No urgency : Yes : No Musculoskeletal: joint pain (chronic) Skin: No rash, No skin related problems, No ulcerations Psychiatric/Neurological: No anxiety, No depression, No seizure, No focal weakness, No syncope Hematologic: No bleeding abnormalities [id number]-Qvhfik Hx Patient Social History Alcohol Use: Denies Use Recreational Drug Use: No Smoking Status: Current Everyday Smoker Former smoker/When Quit: Nov 21, 2013 Type Used: Cigarettes 2nd Hand Smoke Exposure: Yes Recent Foreign Travel: No Recent Infectious Disease Expo: No Physical Abuse Screen: No Sexual Abuse: No Immunizations Up To Date Tetanus Booster (TDap): Less than 5yrs Date of Pneumonia Vaccine: Jun 22, 2016 Date of Influenza Vaccine: Jun 22, 2016 Past Medical History PMH As described under Assessment. Family Medical History Family History: Family history: Hypertension 09 SISTER (43 ) Family history: Thyroid disorder 03 MOTHER (41 ) Stroke 03 FATHER (47 ) Allergies and Home Medications Allergies Coded Allergies: acetaminophen (Verified Allergy, Unknown, 06/09/14) erythromycin base (Verified Allergy, Unknown, PT CAN TAKE AZITHROMYCIN, ) minocycline (Verified Adverse Reaction, Mild, N/V, 06/09/14) Home Medications Atorvastatin Calcium 20 Mg Tablet, 20 MG PO DAILY, (Reported) LAST FILLED #30 01-08-17 Carvedilol 3.125 Mg Tablet, 3.125 MG PO BID, (Reported) LAST FILLED #60 01-08-17 Duloxetine HCl 60 Mg Capsule.dr, 60 MG PO BID, (Reported) LAST FILLED #60 01-08-17 Gabapentin 300 Mg Capsule, 300 MG PO TID, (Reported) LAST FILLED #90 11-28-16 TAKES ALONG WITH 600MG TABLET Gabapentin 600 Mg Tablet, 600 MG PO TID, (Reported) LAST FILLED #90 11-28-16 TAKES ALONG WITH 300MG CAPSULE Ibuprofen 200 Mg Tablet, 800 MG PO TID PRN for PAIN, (Reported) TAKES 4 (200MG) TABLETS Levothyroxine Sodium 50 Mcg Tablet, 50 MCG PO DAILY, (Reported) LAST FILLED #30 01-08-17 Montelukast Sodium 10 Mg Tablet, 10 MG PO HS, (Reported) LAST FILLED #30 01-08-17 Pantoprazole Sodium 40 Mg Tablet.dr, 40 MG PO DAILY, (Reported) LAST FILLED #30 01-08-17 Ropinirole HCl 1 Mg Tablet, 2 MG PO DAILY, (Reported) LAST FILLED 30 DAY SUPPLY 01-08-17 TAKES 2 (1MG) TABLETS Ropinirole HCl 1 Mg Tablet, 1 MG PO 1200,2100, (Reported) LAST FILLED 3O DAY SUPPLY 01-08-17 Tizanidine Hcl 4 Mg Tablet, 4 MG PO TID, (Reported) LAST FILLED #30 01-08-17 Physical Exam-Cardiology Physical Exam Vital Signs/I&O Vital Sign - Last 12Hours 06/02/17 06/02/17 06/02/17 06/02/17 08:00 08:00 13:00 18:05 Temp 98.2 Pulse 88 76 77 Resp 20 20 B/P (MAP) 146/93 105/72 Pulse Ox 96 92 O2 Delivery Nasal Cannula Nasal Cannula Nasal Cannula O2 Flow Rate 2.00 2.00 1.50 06/02/17 06/02/17 18:07 18:47 Temp 98.9 O2 Delivery Nasal Cannula O2 Flow Rate 2.00 Intake and Output 06/03/17 00:00 Output Total 2400 ml Balance -2400 ml Capillary Refill : Less Than 3 Seconds Constitutional: appears stated age, No apparent distress, well-developed, well- nourished HEENT: PERRL, No discharge, hearing is well preserved, oral hygience is good, No ulceration, No xanthelasmas are seen Neck: No carotid bruit, carotid pulses are 2 + bilaterally Respiratory: No accessory muscle use, No respiratory distress, other ( diminished bases bilat; hoarse voice) Cardiovascular: regular rate-rhythm, No JVD, S1 and S2 Gastrointestinal: No tender, soft, round, No spleenomegaly Rectal: deferred Extremities: No clubbing, No cyanosis, No significant edema Neurologic/Psychiatric: alert, oriented x 3, power is 5/5 both on sides Skin: No rash, No ulcerations Data Review Labs Laboratory Tests 06/02/17 00:01: Urine Color YELLOW, Urine Clarity CLEAR, Urine pH 6.5, Urine Specific [place] 1.010L, Urine Protein NEGATIVE, Urine Glucose (UA) NEGATIVE, Urine Ketones NEGATIVE, Urine Nitrite NEGATIVE, Urine Bilirubin NEGATIVE, Urine Urobilinogen NORMAL, Urine Leukocyte Esterase 1+H, Urine RBC (Auto) NEGATIVE, Urine RBC NONE , Urine WBC RARE, Urine Squamous Epithelial Cells 5-10, Urine Crystals NONE, Urine Bacteria NEGATIVE, Urine Casts NONE, Urine Mucus NEGATIVE, Urine Culture Indicated NO 06/02/17 08:59: White Blood Count 11.0, Red Blood Count 4.82, Hemoglobin 13.8, Hematocrit 44, Mean Corpuscular Volume 92, Mean Corpuscular Hemoglobin 29, Mean Corpuscular Hemoglobin Concent 31L, Red Cell Distribution Width 14.9H, Platelet Count 332, Mean Platelet Volume 10.2, Sodium Level 142, Potassium Level 3.1L, Chloride Level 96L, Carbon Dioxide Level 35H, Anion Gap 11, Blood Urea Nitrogen 7, Creatinine 0.68, Estimat Glomerular Filtration Rate > 60, BUN/Creatinine Ratio 10, Glucose Level 93, Calcium Level 9.1, Magnesium Level 1.5L Radiology NAME: TUAN ROMO [facility] REC#: [id number] PT STATUS: REG ER : 1975 PHYSICIAN: CHRISTY MAR DO ADMIT DATE: 06/01/17/ER Signed Date of Exam: 06/01/17 CHEST 1 VIEW, AP/PA ONLY INDICATION: Chest pain with shortness of breath. COMPARISON: 08/19/2016. FINDINGS: There has been increase in cardiac size. There does appear to be developing bilateral interstitial and alveolar infiltrates with pulmonary venous congestion. No consolidated infiltrates are noted. No pleural effusion. IMPRESSION: 1. Cardiomegaly with interstitial and alveolar infiltrates, consistent with developing congestive failure. 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 Echo of 06/02/17: LVEF 60-65% Holter study of 12-21-15 showed NSR with average HR o 89 bpm. Infrequent PVC, isolated and coupled. No VT or SVT or significant bradycardia Cardiac catheterization of 11-16-2013 showed angiographically normal coronary arteries. LVEF 60%. LVEDP, no significant mitral regurg. MPI of 01-02-16 showed no evidence of any significant myocardial ischemia or infarction. LVEF 80%. Normal regional wall motion. LVEF 60-65%, pulmonary HTN with estimated pulmonary artery systolic pressure of approx 60-65 mmHg, mild to moderate enlargement of the left atrium, no evidence of significant valvular stenosis per echo of March 17 Chronic back and joint pain. History of anxiety and depression, currently controlled. History of fatty liver. Chronic tobaccoism which cessation has been advised. Previous hospitalization with narcotic overdose. At that time, she also had liver enzyme elevation which was improving at the time of discharge and is being followed by Dr. Saldaña. Gastroesophageal reflux disease with recent GI bleed during hospitalization Hypokalemia due to diuretic use Myofascial pain syndrome and lumbar spondylosis, managed by Dr Cr Chronic chest pain syndrome, chronic Chronic anemia, managed by her [facility]. Discussion and Recomendations Multifactorial dyspnea. Acute on chronic diastolic CHF. Continue diuretics. Monitor lab closely. Echocardiogram to evaluate LVEF. Acute on chronic exacerbation of COPD, management per medical services. Continue home medication regimen including BB tx. D/C nitro-paste. Replace electrolytes as indicated. Further recommendations will be based on her hospital course. We would like to thank the medical services for this consult. This consult is being scribed by Gudelia Corado APRN on behalf of Dr. Burgess after discussion regarding plan of care. Clinical Quality Measures AMI/AHF: ASA po Prior to arrival: No DVT/VTE Risk/Contraindication: Risk Factor Score Per Nursin RFS Level Per Nursing on Admit: 4+=Very High Physician Assessment Physician Assessment Lungs: fair air entry; diminished at the bases Cor: reg Ext: no c/c; mod leg edema A&R * As documented in our note above that I updated (italics) and as noted below * Change diuretics to oral * Monitor labs * Most issues seem to stem from obesity. Wgt loss advised and discussed BEV CORADO Jun 02, 2017 08:39 JARRET BURGESS MD FACP FAC CCDS Jun 02, 2017 19:34
--- NOTE | 2017-06-02 08:49 | Diagnostic Imaging Report ---
INDICATION: Chest pain. CHF. COMPARISON: 06/01/2017 FINDINGS: Single frontal radiographic view of the chest was obtained and demonstrates persistent moderate cardiomegaly. Pulmonary vasculature may be slightly prominent as well. Aeration of the lungs is slightly improved. There may be some residual diffuse interstitial prominence. There is no focal alveolar consolidation, large effusion, nor pneumothorax. Bony structures show no gross acute abnormalities. IMPRESSION: 1. Improving pulmonary edema versus pneumonia. 2. Persistent cardiomegaly and mild pulmonary vascular congestion. Dictated by: Dictated on workstation # [id number]
[2017-06-02] MEDS ORDERED: ISOSORBIDE MONONITRATE 20 MG PO SCH (09:00)
[2017-06-02] MEDS ORDERED: MONTELUKAST 10 MG (SINGULAIR) TAB PO SCH (09:00)
[2017-06-02] MEDS ORDERED: rOPINIRole 1 MG (REQUIP) TABLET PO ONE ×2 (09:00→12:00)
[2017-06-02] MEDS: PANTOPRAZOLE 40 MG (PROTONIX) TAB PO SCH (09:05)
[2017-06-02] MEDS: LEVOTHYROXINE 50 MCG (LEVOTHROID) TAB PO SCH (09:05)
[2017-06-02] MEDS: GABAPENTIN 300 MG (NEURONTIN) CAP PO SCH ×2 (09:05→12:31)
[2017-06-02] MEDS: DULoxetine 30 MG (CYMBALTA) CAP PO SCH ×2 (09:05→20:08)
[2017-06-02] MEDS: CARVEDILOL 3.125 MG (COREG) TABLET PO SCH ×2 (09:05→20:07)
[2017-06-02 09:08] LABS: MEAN PLATELET VOLUME 10.2 FL (7.4-10.4); RED BLOOD COUNT 4.82 10^6/uL (4.35-5.85); RED CELL DISTRIBUTION WIDTH 14.9 % (10.0-14.5)
[2017-06-02 09:36] LABS: ANION GAP 11 MMOL/L (5-14); BLOOD UREA NITROGEN 7 MG/DL (7-18); BUN/CREATININE RATIO 10; CALCIUM 9.1 MG/DL (8.5-10.1); CARBON DIOXIDE 35 MMOL/L (21-32); CHLORIDE 96 MMOL/L (98-107); CREATININE SERUM 0.68 MG/DL (0.60-1.30); GFR ESTIMATED > 60; GLUCOSE 93 MG/DL (70-105); MAGNESIUM 1.5 MG/DL (1.8-2.4); POTASSIUM 3.1 MMOL/L (3.6-5.0); SODIUM 142 MMOL/L (135-145)
[2017-06-02] MEDS ORDERED: ATOR20TA66 PO (10:49)
[2017-06-02] MEDS ORDERED: KCL 20 MEQ TAB (K-DUR) PO NR ×2 (15:11→18:30)
--- NOTE | 2017-06-02 15:53 | Progress Note-Hospitalist ---
Standard Progress Note Progress Notes/Assess & Plan Date Seen 06/02/17 Time Seen by Provider: 15:48 Assess & Plan/Chief Complaint The patient is a 42-year-old white female who presented to the emergency room last night with shortness of breath. It appears that she is a devoted noncompliant patient. She has had lung troubles for some time but continues to smoke. Apparently earlier this year she had a hilar lymph node biopsied on the left which proved to be sarcoidosis. 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 This is left her hoarse and able to speak only in a whisper. She reported she been increasingly short of breath for several days prior to her presentation. She also allows that she has previously had home oxygen but states she weaned herself off of it. Physical exam: She is a plump dyspneic White female. Lungs show distant breath sounds without rhonchi or wheezing. CV is regular without murmur. SaO2 is noted to drop into the 60s when she removes her oxygen. Impression: Severe hypoxia. 2.history of sarcoidosis. 3.recurrent laryngeal nerve injury and hoarseness. Plan: She is anxious to leave but at the very least will require home oxygen. Testing has been ordered. Labs Laboratory Tests 06/01/17 16:15 06/01/17 18:43 06/02/17 08:59 SARAY JOHNSON MD Jun 02, 2017 15:52
[2017-06-02] MEDS: MAGNESIUM 1 GM/100 ML IVPB 100 ML IV SCH ×2 (17:53→18:41)
[2017-06-02 18:05] VITALS: BP 105/72
[2017-06-02 20:00] VITALS: BP 110/71
[2017-06-02] MEDS: rOPINIRole 1 MG (REQUIP) TABLET PO SCH (20:08)
[2017-06-02] MEDS: GABAPENTIN 600 MG (NEURONTIN) TAB PO SCH (20:08)
[2017-06-02] MEDS: MONTELUKAST 10 MG (SINGULAIR) TAB PO SCH (20:08)
[2017-06-03] VITALS: BP 96/54
[2017-06-03] MEDS: oxyCODONE/APAP 10/325MG (PERCOCET 10) TABLET PO PRN (00:51)
[2017-06-03 04:00] VITALS: BP 110/51
[2017-06-03] MEDS: PANTOPRAZOLE 40 MG (PROTONIX) TAB PO SCH (05:43)
[2017-06-03 06:35] LABS: ALBUMIN 4.1 GM/DL (3.2-4.5); BILIRUBIN,TOTAL 0.3 MG/DL (0.1-1.0); CALCIUM 9.4 MG/DL (8.5-10.1); CREATININE SERUM 1.24 MG/DL (0.60-1.30); MAGNESIUM 2.3 MG/DL (1.8-2.4); POTASSIUM 3.1 MMOL/L (3.6-5.0); TOTAL PROTEIN 7.5 GM/DL (6.4-8.2)
[2017-06-03 08:00] VITALS: BP 91/66
[2017-06-03] MEDS: DULoxetine 30 MG (CYMBALTA) CAP PO SCH (08:52)
[2017-06-03] MEDS: LEVOTHYROXINE 50 MCG (LEVOTHROID) TAB PO SCH (08:52)
[2017-06-03] MEDS: GABAPENTIN 600 MG (NEURONTIN) TAB PO SCH ×2 (08:53→13:55)
[2017-06-03] MEDS: CARVEDILOL 3.125 MG (COREG) TABLET PO SCH (08:53)
[2017-06-03] MEDS ORDERED: rOPINIRole 1 MG (REQUIP) TABLET PO SCH (09:00)
[2017-06-03] MEDS ORDERED: PANTOPRAZOLE 40 MG (PROTONIX) TAB PO SCH (09:00)
[2017-06-03] MEDS ORDERED: FUROSEMIDE 40 MG (LASIX) TAB PO SCH (09:00)
--- NOTE | 2017-06-03 09:39 | History & Physical-Hospitalist ---
HPI History of Present Illness: HPI/Chief Complaint The patient is a 42-year-old white female who presented to the emergency room on 06/01/17 with complaints of sore throat and generally not feeling well. In questioning she then allowed that she had experienced chest tightness and increasing shortness of breath over the several days prior to admission. She thought that she might be coming down with pneumonia. She denied any previous knowledge of heart disease. She is a smoker of some years. She reports that she has previously had home oxygen but weaned herself off of it. She has not had been charted as having any fever during her hospital patient here. SaO2 on presentation to the emergency room was 80 percent. Chest x-ray showed interstitial infiltrates that suggested both pulmonary edema and early pneumonia. There was cardiomegaly reported as well. Source: patient Exam Limitations: no limitations Date Seen 06/03/17 Time Seen by Provider: 09:39 Attending Physician Chantell Soria MD PCP No,Local Physician Referring Physician Date of Admission Jun 01, 2017 at 17:10 Home Medications & Allergies Home Medications Reviewed patient Home Medication Reconciliation Form Allergies Allergies Coded Allergies acetaminophen (Verified Allergy, Unknown, 06/09/14) erythromycin base (Verified Allergy, Unknown, PT CAN TAKE AZITHROMYCIN, ) minocycline (Verified Adverse Reaction, Mild, N/V, 06/09/14) Past Sqfmtne-Hwrtwm-Tfdxvg Hx Patient Social History Alcohol Use: Denies Use Recreational Drug Use: No Smoking Status: Current Everyday Smoker Type Used: Cigarettes 2nd Hand Smoke Exposure: Yes Physical Abuse Screen: No Sexual Abuse: No Recent Foreign Travel: No Contact w/other who traveled: No Recent Hopitalizations: No Recent Infectious Disease Expo: No Immunizations Up To Date Tetanus Booster (TDap): Less than 5yrs Date of Pneumonia Vaccine: Jun 22, 2016 Date of Influenza Vaccine: Jun 22, 2016 Seasonal Allergies Seasonal Allergies: No Surgeries Yes (VOCAL CORDS, BACK, KNEE SCOPE) Appendectomy, Gallbladder, Orthopedic, Tonsillectomy Respiratory Yes Currently Using CPAP: No Currently Using BIPAP: No Cardiovascular Yes (CHF) Chronic Edema/Swelling, High Cholesterol Neurological Yes Headaches /Migraines Reproductive System Hx Reproductive Disorders: No Sexually Transmitted Disease: No HIV/AIDS: No Female Reproductive Disorders: Menstrual Problems, Ovarian Cyst Genitourinary Yes Renal Failure, UTI-Chronic Gastrointestinal Yes Gastroesophageal Reflux, Liver Disease/Jaundice Musculoskeletal Yes ( RESTLESS LEG SYNDROME) Fibromyalgia Endocrine History of Endocrine Disorders: Yes Endocrine Disorders: Hypothyroidsim, Diabetes, Non-Insulin dep HEENT History of HEENT Disorders: Yes HEENT Disorders: Dysphagia Cancer No Psychosocial History of Psychiatric Problem: Yes Behavioral Health Disorders: Depression Integumentary History of Skin or Integumenta: Yes (L Lower Leg cellulitis) Skin/Integumentary Disorders: Recent Skin Changes Blood Transfusions History of Blood Disorders: No Adverse Reaction to a Blood Tr: No Family Medical History Significant Family History: Heart Disease, Hypertension Family Hx: Family history: Hypertension 09 SISTER (43 ) Family history: Thyroid disorder 03 MOTHER (41 ) Stroke 03 FATHER (47 ) Review of Systems Constitutional: see HPI EENTM: nose congestion Respiratory: see HPI, cough, dyspnea on exertion, short of breath Cardiovascular: no symptoms reported Gastrointestinal: no symptoms reported Genitourinary: no symptoms reported Musculoskeletal: no symptoms reported Skin: no symptoms reported Psychiatric/Neurological: No Symptoms Reported Physical Exam Physical Exam Vital Signs Vital Sign - Last 12Hours 06/01/17 06/01/17 15:45 16:01 Temp 98.0 Pulse 74 Resp 18 B/P (MAP) 164/93 Pulse Ox 80 O2 Delivery Room Air O2 Flow Rate 3.00 Capillary Refill : Less Than 3 Seconds General Appearance: Moderate Distress Eyes: Bilateral Eye Normal Inspection HEENT: Normal ENT Inspection Neck: Full Range of Motion, Normal Inspection Respiratory: Decreased Breath Sounds Cardiovascular: Regular Rate, Rhythm, No Edema, No Gallop, No JVD, No Murmur, Normal Peripheral Pulses Gastrointestinal: Normal Bowel Sounds, No Organomegaly, No Pulsatile Mass, Non Tender, Soft Back: Normal Inspection Extremity: Normal Capillary Refill, Normal Inspection, Normal Range of Motion, Non Tender, No Calf Tenderness, Pedal Edema Neurologic/Psychiatric: Alert, Oriented x3, No Motor/Sensory Deficits, Normal Mood/Affect Skin: Normal Color, Warm/Dry Lymphatic: No Adenopathy Results Results/Procedures Lab Laboratory Tests 06/01/17 16:15 06/01/17 18:43 06/02/17 08:59 06/03/17 05:30 Assessment/Plan Admission Diagnosis 1.hypoxia. 2.bilateral interstitial infiltrates. Pneumonia versus pulmonary edema. 3.tobaccoism. 4.cardiomegaly Assessment and Plan Empiric antibiotics 2.O2 supplementation. Cardiology consult. O2 for home use evaluation Clinical Quality Measures AMI/AHF: ASA po Prior to arrival: No DVT/VTE Risk/Contraindication: Risk Factor Score Per Nursin RFS Level Per Nursing on Admit: 4+=Very High SARAY JOHNSON MD Jun 03, 2017 09:39
--- NOTE | 2017-06-03 11:00 | Progress Note-Cardiology ---
Cardiology SOAP Progress Note Subjective: Up ambulating in the room. Wants to go home. No c/o CP. Feels shortness of breath has improved. No c/o palpitations, syncope or near syncope. Objective: I&O/Vital Signs Vital Sign - Last 12Hours 06/03/17 06/03/17 06/03/17 06/03/17 00:00 04:00 08:00 08:00 Temp 97.5 98.2 98.5 Pulse 69 75 87 Resp 21 18 18 B/P (MAP) 96/54 110/51 91/66 Pulse Ox 93 92 93 O2 Delivery Nasal Cannula Room Air Nasal Cannula Nasal Cannula O2 Flow Rate 1.50 1.50 2.00 Weight (Pounds): 303 Weight (Ounces): 8.0 Weight (Calculated Kilograms): 137.509370 Constitutional: appears stated age, No apparent distress, well-developed, well- nourished Respiratory: No accessory muscle use, No respiratory distress, other ( diminished bases bilat; hoarse voice) Cardiovascular: regular rate-rhythm, No JVD, S1 and S2 Gastrointestional: No tender, soft, round, No spleenomegaly Extremities: No clubbing, No cyanosis, No significant edema Neurologic/Psychiatric: alert, oriented x 3, power is 5/5 both on sides Skin: No rash, No ulcerations Results/Procedures: Labs Laboratory Tests 06/03/17 05:30: Sodium Level 134L, Potassium Level 3.1L, Chloride Level 92L, Carbon Dioxide Level 26, Anion Gap 16H, Blood Urea Nitrogen 13, Creatinine 1.24, Estimat Glomerular Filtration Rate 48, BUN/Creatinine Ratio 10, Glucose Level 95, Calcium Level 9.4, Magnesium Level 2.3, Total Bilirubin 0.3, Aspartate Amino Transf (AST/SGOT) 83H, Alanine Aminotransferase (ALT/SGPT) 26, Alkaline Phosphatase 176H, Total Protein 7.5, Albumin 4.1, Triglycerides Level 198H, Cholesterol Level 179, LDL Cholesterol Direct 113, VLDL Cholesterol 40, HDL Cholesterol 40 Laboratory Tests 06/01/17 16:15 06/01/17 18:43 06/02/17 08:59 06/03/17 05:30 A/P: Assessment: Shortness of breath, multifactorial (see below) Obesity-hypoventilation and LOLI syndrome Acute on chronic obstructive pulmonary disease Partial vocal cord paralysis following mediastinal surgery for mediastinal lymphadenopathy; this has been followed by vocal cord surgery at [facility] Acute on chronic diastolic CHF. Echo of 06/02/17: LVEF 60-65% Holter study of 12-21-15 showed NSR with average HR o 89 bpm. Infrequent PVC, isolated and coupled. No VT or SVT or significant bradycardia Cardiac catheterization of 11-16-2013 showed angiographically normal coronary arteries. LVEF 60%. LVEDP, no significant mitral regurg. MPI of 01-02-16 showed no evidence of any significant myocardial ischemia or infarction. LVEF 80%. Normal regional wall motion. LVEF 60-65%, pulmonary HTN with estimated pulmonary artery systolic pressure of approx 60-65 mmHg, mild to moderate enlargement of the left atrium, no evidence of significant valvular stenosis per echo of March 17 Chronic back and joint pain. History of anxiety and depression, currently controlled. History of fatty liver. Chronic tobaccoism which cessation has been advised. Previous hospitalization with narcotic overdose. At that time, she also had liver enzyme elevation which was improving at the time of discharge and is being followed by Dr. Saldaña. Gastroesophageal reflux disease with recent GI bleed during hospitalization Hypokalemia due to diuretic use Myofascial pain syndrome and lumbar spondylosis, managed by Dr Cr Chronic chest pain syndrome, chronic Chronic anemia, [facility]. Plan: Multifactorial dyspnea. Acute on chronic diastolic CHF - clinically improved Acute on chronic exacerbation of COPD, management per medical services Advised compliance with medications and medical instructions Replace electrolytes OK to discharge home from cardiac stand point Home oxygen being arranged per medical services Clinical Quality Measures AMI/AHF: ASA po Prior to arrival: BEV Stafford Jun 03, 2017 11:00
[2017-06-03] MEDS ORDERED: KCL 20 MEQ TAB (K-DUR) PO NR ×2 (11:15→14:00)
[2017-06-03 12:00] VITALS: BP 100/52
[2017-06-03] MEDS: rOPINIRole 1 MG (REQUIP) TABLET PO SCH (13:56)
[2017-06-03] MEDS ORDERED: POTA20TA8 PO (14:14)
[2017-06-03] MEDS ORDERED: FURO-124 PO (14:14)
--- NOTE | 2017-06-03 14:21 | Progress Note-Hospitalist ---
Standard Progress Note Progress Notes/Assess & Plan Date Seen 06/03/17 Time Seen by Provider: 14:20 Diagnosis 1.hypoxia. 2.bilateral interstitial infiltrates. Pneumonia versus pulmonary edema. 3.tobaccoism. 4.cardiomegaly Assess & Plan/Chief Complaint SOPHIE Zavala has completed the echocardiogram. Ejection fraction is in the 60 percent range. RT performed assay for home oxygen. On room air her SaO2 drops into the 60s qualifying her quite easily. The patient has been insistent on going home and this will be allowed. Home oxygen has been ordered. Labs Laboratory Tests 06/01/17 16:15 06/01/17 18:43 06/02/17 08:59 06/03/17 05:30 SARAY JOHNSON MD Jun 03, 2017 14:21
--- NOTE | 2017-06-03 14:29 | Discharge Instructions ---
Discharge Instructions Patient Instructions Patient Instructions: Medications as listed in the discharge sequence. Continue his home O2 at 2.5 L/m nasal cannula Keep appointment with SOPHIE Zavala. No smoking Return to The Hospital For: Declining condition Activity & Diet Discharge Diet: Cardiac Diet Activity as Tolerated: Yes SARAY JOHNSON MD Jun 03, 2017 14:29
[2017-06-03 15:52] VITALS: BP 100/52
--- NOTE | 2017-06-05 07:37 | Physician Query Clarification ---
PQ-Uncertain Diagnosis Admission/Discharge Admission Date: Jun 01, 2017 at 17:10 Discharge Date: Jun 03, 2017 at 15:52 The medical record reflects the following clinical scenario: History/Risk Factors: Acute on chronic diastolic congestive heart failure Acute exacerbation of COPD Clinical Findings: Per your H&P-Chest x-ray showed interstitial infiltrates that suggested both pulmonary edema and early pneumonia. Treatment: IV Lasix, supplemental oxygen,Singulair Question: Is Pneumonia a clinically valid diagnosis? Please document a response below. PHYSICIAN RESPONSE Diagnosis clinically valid: No, conditon ruled out Explanation of clincal finding Patient apparently has biopsy confirmed sarcoidosis. I believe this was a factor along with the heart failure. In responding to this query, please exercise your independent professional judgment. The purpose of this communication is to more accurately reflect the complexity of your patients condition. The fact that a question is asked does not imply that any particular answer is desired or expected. Thank you for your timely response to this clarification. Requestors name: Gissel Baumann [facility] Phone # ext [phone] or [phone] THIS PHYSICIAN QUERY FORM IS A PERMANENT PART OF THE MEDICAL RECORD GISSEL BAUMANN Jun 05, 2017 07:37 SARAY JOHNSON MD Jun 26, 2017 08:45
--- NOTE | 2017-06-05 13:22 | Progress Note-Hospitalist ---
Standard Progress Note Progress Notes/Assess & Plan Date Seen 06/05/17 Time Seen by Provider: 00:00 Diagnosis 1.hypoxia. 2.bilateral interstitial infiltrates. Pneumonia versus pulmonary edema. 3.tobaccoism. 4.cardiomegaly Final Diagnosis 1.severe hypoxia. 2.bilateral interstitial infiltrates/biopsy-proven sarcoidosis. 3.tobaccoism. 4.cardiomegaly. SARAY JOHNSON MD Jun 05, 2017 13:22
--- NOTE | 2017-06-06 07:44 | Physician Query Clarification ---
PQ-Conflicting Diagnosis Admission/Discharge Admission Date: Jun 01, 2017 at 17:10 Discharge Date: Jun 03, 2017 at 15:52 The medical record reflects the following clinical scenario: History/Risk Factors: Severe Hypoxia Sarcoidosis Tobaccoism Clinical Findings: Bilateral interstitial infiltrates Treatment: IV Lasix, Supplemental Oxygen Question: Do you agree with the impression of Acute on Chronic Diastolic Congestive Heart Failure, COPD with Acute Exacerbation and Obesity Hypoventilation Syndrome per Dr. Burgess and AVIS Treadwell throughout the record? Please document a response below. PHYSICIAN RESPONSE Do you agree w/Consulting Dx?: Yes In responding to this query, please exercise your independent professional judgment. The purpose of this communication is to more accurately reflect the complexity of your patients condition. The fact that a question is asked does not imply that any particular answer is desired or expected. Thank you for your timely response to this clarification. Requestors name: Gissel Baumann [facility] Phone # ext [phone] or [phone] THIS PHYSICIAN QUERY FORM IS A PERMANENT PART OF THE MEDICAL RECORD GISSEL BAUMANN Jun 06, 2017 07:44 SARAY JOHNSON MD Jun 26, 2017 08:46
--- NOTE | 2017-06-25 16:16 | Progress Note-Hospitalist ---
Standard Progress Note Progress Notes/Assess & Plan Date Seen 06/25/17 Time Seen by Provider: 00:00 Diagnosis 1.hypoxia. 2.bilateral interstitial infiltrates. Pneumonia versus pulmonary edema. 3.tobaccoism. 4.cardiomegaly Final Diagnosis Severe hypoxia. 2.bilateral interstitial infiltrates/biopsy-proven sarcoidosis. 3.tobaccoism 4.COPD 5.cardiomegaly/pulmonary edema SARAY JOHNSON MD Jun 25, 2017 16:16
== END 2017-06-03 15:52 | disposition home or self-care (01) | DRG 292 ==
LOC: EDUNIT# 15:40 → ER 15:42 → ICU 17:10 → 4TH 06-02 19:22
PROVIDERS: ADMIT Family Medicine; ATTEND Family Medicine
DX: I50.33 Acute on chronic diastolic (congestive) heart failure (principal); J44.1 Chronic obstructive pulmonary disease with (acute) exacerbation; E66.2 Morbid (severe) obesity with alveolar hypoventilation; R09.02 Hypoxemia; J38.00 Paralysis of vocal cords and larynx, unspecified; D86.1 Sarcoidosis of lymph nodes; F17.210 Nicotine dependence, cigarettes, uncomplicated; E78.00 Pure hypercholesterolemia, unspecified; I27.2 Other secondary pulmonary hypertension; E11.9 Type 2 diabetes mellitus without complications; F41.9 Anxiety disorder, unspecified; F32.9 Major depressive disorder, single episode, unspecified; I51.7 Cardiomegaly; R13.10 Dysphagia, unspecified; M79.7 Fibromyalgia; K21.9 Gastro-esophageal reflux disease without esophagitis; E03.9 Hypothyroidism, unspecified; E87.6 Hypokalemia; M47.9 Spondylosis, unspecified; G25.81 Restless legs syndrome; K76.0 Fatty (change of) liver, not elsewhere classified; G43.909 Migraine, unspecified, not intractable, without status migrainosus; Z91.19 Patient's noncompliance with other medical treatment and regimen; Z79.84 Long term (current) use of oral hypoglycemic drugs
CPT/HCPCS: 36415; 71010; 80048; 80053; 80061; 81000; 82150; 82550; 82553; 82805; 83690; 83735; 83874; 83880; 84484; 85007; 85025; 85027; 85610; 85730; 87430; 93005; 93041; 93306; 96374; 96375

== ENCOUNTER 2018-03-29 11:41 | Emergency (ER) | payer OTHER, MEDICARE, MEDICAID ==
[~2018-03-29] VITALS: Ht 167.6 cm; Wt 145.1 kg
[~2018-03-29 11:41] MED LIST changes: +ATOR20TA66 PO; +FURO-124 PO; +POTA20TA8 PO
--- NOTE | 2018-03-29 11:59 | ED Fall/Injury ---
General Chief Complaint: Upper Extremity Stated Complaint: R WRIST INJ Source: patient Exam Limitations: no limitations History of Present Illness Date Seen by Provider: Mar 29, 2018 Time Seen by Provider: 11:48 Initial Comments The patient presents to the ER by private conveyance with a chief complaint that yesterday she was walking out of the convenience center and fell on outstretched hands. She says she had low pain in her right wrist ulnar side that she thought would get better but after a single dose of ibuprofen it still hurting and having some swelling today. She is not ice on it. She does not use Tylenol. No previous history of injury to the wrist nor is she any surgeries on the rest. She did not strike her head nor lose consciousness. Allergies and Home Medications Allergies Coded Allergies: acetaminophen (Verified Allergy, Unknown, 06/09/14) erythromycin base (Verified Allergy, Unknown, PT CAN TAKE AZITHROMYCIN, ) minocycline (Verified Adverse Reaction, Mild, N/V, 06/09/14) Home Medications Atorvastatin Calcium 20 Mg Tablet, 20 MG PO DAILY, (Reported) LAST FILLED #30 01-08-17 Carvedilol 3.125 Mg Tablet, 3.125 MG PO BID, (Reported) LAST FILLED #60 01-08-17 Furosemide 40 Mg Tablet, 40 MG PO q48 HRS Prescribed by: BEV BAIN on 06/03/17 141 Potassium Chloride 20 Meq Tab.er.prt, 20 MEQ PO Q48H Prescribed by: BEV BAIN on 06/03/17 1414 Patient Home Medication List Home Medication List Reviewed: Yes Review of Systems Constitutional: No chills, No diaphoresis Eyes: Denies Blindness, Denies Blurred Vision Ears, Nose, Mouth, Throat: denies ear pain, denies nose pain Respiratory: No cough, No short of breath Cardiovascular: No chest pain, No edema Gastrointestinal: No abdominal pain, No constipation, No diarrhea, No nausea Genitourinary: No discharge, No dysuria Past Xgwpgee-Exewuk-Sousce Hx Patient Social History Alcohol Use: Denies Use Recreational Drug Use: No Smoking Status: Current Everyday Smoker Type Used: Cigarettes 2nd Hand Smoke Exposure: Yes Recent Foreign Travel: No Contact w/Someone Who Travel: No Recent Hopitalizations: No Immunizations Up To Date Tetanus Booster (TDap): Less than 5yrs Date of Pneumonia Vaccine: Jun 22, 2016 Date of Influenza Vaccine: Jun 22, 2016 Seasonal Allergies Seasonal Allergies: No Past Medical History Surgeries: Yes Appendectomy, Gallbladder, Orthopedic, Tonsillectomy Respiratory: Yes Sleep Apnea, COPD Currently Using CPAP: No Currently Using BIPAP: No Cardiac: Yes (CHF;PULMONARY HTN) Chronic Edema/Swelling, High Cholesterol Neurological: Yes Headaches /Migraines, Neuropathy Reproductive Disorders: No Female Reproductive Disorders: Menstrual Problems, Ovarian Cyst Sexually Transmitted Disease: No HIV/AIDS: No Genitourinary: Yes Renal Failure, UTI-Chronic Gastrointestinal: Yes (FATTY LIVER DISEASE) Gastroesophageal Reflux, Liver Disease/Jaundice, Gastrointestinal Bleed, Esophagitis, Hiatal Hernia Musculoskeletal: Yes ( RESTLESS LEG SYNDROME) Arthritis, Fibromyalgia, Chronic Back Pain Endocrine: Yes (MORBID OBESITY) Hypothyroidsim, Diabetes, Non-Insulin dep HEENT: Yes ("VOCAL CORD DYSFUNCTION" ) Dysphagia Cancer: No Psychosocial: Yes (NARCOTIC OVERDOSE 12/2012) Anxiety, Depression Integumentary: Yes (CHRONIC LEFT LEG CELLULITIS) Recent Skin Changes Blood Disorders: No Adverse Reaction/Blood Tranf: No Family Medical History Family history: Hypertension 09 SISTER (43 ) Family history: Thyroid disorder 03 MOTHER (41 ) Stroke 03 FATHER (47 ) Heart Disease, Hypertension Physical Exam Vital Signs Vital Signs - First Documented 03/29/18 11:45 Temp 97.0 Pulse 86 Resp 18 B/P (MAP) 138/69 (92) Pulse Ox 95 O2 Delivery Room Air Capillary Refill : Height, Weight, BMI Height: 5', 6.00" Weight: 303lbs 8.0oz, 137.527142vw Method:Stated ,48.4BMI General Appearance: WD/WN, no apparent distress HEENT: PERRL/EOMI, other (voiced is hoarse) Cardiovascular: normal peripheral pulses, regular rate, rhythm, other (radial ulnar per pulses are 2 out of 4 bilateral.) Respiratory: no respiratory distress, no accessory muscle use Peripheral Pulses: 2+ Radial Pulses (R), 2+ Radial Pulses (L) Extremities: normal range of motion, normal capillary refill, swelling (mild over her right wrist), other (tenderness to palpation on the medial carpals and fourth and fifth metacarpal as well as the ulnar styloid.) Neurologic/Psychiatric: no motor/sensory deficits, alert, oriented x 3 Skin: warm/dry, ecchymosis (faint ecchymoses dorsum right wrist) Procedures/Interventions Suture Size: 5-0 Progress/Results/Core Measures Results/Orders My Orders Orders - KRISTEN JACKSON Wrist, Right, 3 Views Or More (03/29/18 11:52) Vital Signs/I&O 03/29/18 11:45 Temp 97.0 Pulse 86 Resp 18 B/P (MAP) 138/69 (92) Pulse Ox 95 O2 Delivery Room Air Progress Progress Note : Time: 11:57 Progress Note The patient's had ibuprofen and cannot take Tylenol secondary to liver concerns. We'll going give her an ice pack for pain control the time and get an x-ray of her right wrist. Diagnostic Imaging Diagonstic Imaging: Xray Plain Films/CT/US/NM/MRI: other (right wrist) Comments [facility] [place], [place] NAME: TUAN ORANTES [facility] REC#: [id number] PT STATUS: REG ER : 1975 PHYSICIAN: KRISTEN JACKSON MD ADMIT DATE: 03/29/18/ER Draft Date of Exam:03/29/18 WRIST, RIGHT, 3 VIEWS OR MORE INDICATION: Fell complaining of right wrist pain. EXAMINATION: Right wrist dated 03/29/2018. COMPARISONS: None. FINDINGS: 3 views of the wrist. There is minimal irregularity in the dorsal aspect of the wrist. This could represent focal spurring with a small triquetral fracture not excluded correlate for point tenderness. Remaining osseous structures appear unremarkable. No dislocations. IMPRESSION: 1. Density dorsal aspect of the wrist see above discussion and correlate for any point tenderness in the region of the triquetrum. Dictated on workstation # [id number] Dict: 03/29/18 1220 Trans: 03/29/18 1227 [id number] Interpreted by: ELISA GAMBLE MD Electronically signed by: Reviewed: Reviewed by Me Departure Impression Primary Impression: Triquetral chip fracture Qualified Codes: S62.111A - Displaced fracture of triquetrum [cuneiform] bone , right wrist, initial encounter for closed fracture Disposition: 01 HOME, SELF-CARE Condition: Stable Departure-Patient Inst. Decision time for Depature: 12:44 Referrals: ADELINA CURTIS CHAD C MD (PCP/Family) Primary Care Physician Patient Instructions: Common Wrist Injuries (DC) Add. Discharge Instructions: Wear the splint except to bathe. Keep the skin clean and dry. Use ice for 20 minutes every 4 hours for swelling or pain. Use Motrin 800 mg every 8 hours. Follow-up with Dr. Curtis next week. Call Friday tomorrow for an appointment. All discharge instructions reviewed with patient and/or family. Voiced understanding. Work/School Note: Work Release Form Date Seen in the Emergency Department: Mar 29, 2018 Return to Work: Mar 30, 2018 Restrictions: Need Release from Doctor Other Restrictions Listed Below: Wear splint on right hand for 2 weeks Copy Copies To 1: ADELINA CURTIS DO; BIANKA THOMSON MD, TITUS J Mar 29, 2018 11:59
--- NOTE | 2018-03-29 12:27 | Diagnostic Imaging Report ---
INDICATION: Fell complaining of right wrist pain. EXAMINATION: Right wrist dated 03/29/2018. COMPARISONS: None. FINDINGS: 3 views of the wrist. There is minimal irregularity in the dorsal aspect of the wrist. This could represent focal spurring with a small triquetral fracture not excluded correlate for point tenderness. Remaining osseous structures appear unremarkable. No dislocations. IMPRESSION: 1. Density dorsal aspect of the wrist see above discussion and correlate for any point tenderness in the region of the triquetrum. Dictated by: Dictated on workstation # [id number]
[2018-03-29 12:54] VITALS: BP 138/69
== END 2018-03-29 12:54 | disposition home or self-care (01) ==
LOC: EDUNIT# 11:41 → ER 11:42
DX: S62.111A Displaced fracture of triquetrum [cuneiform] bone, right wrist, initial encounter for closed fracture (principal); F17.210 Nicotine dependence, cigarettes, uncomplicated; J44.9 Chronic obstructive pulmonary disease, unspecified; I50.9 Heart failure, unspecified; I27.0 Primary pulmonary hypertension; E78.00 Pure hypercholesterolemia, unspecified; G43.909 Migraine, unspecified, not intractable, without status migrainosus; K21.9 Gastro-esophageal reflux disease without esophagitis; M19.90 Unspecified osteoarthritis, unspecified site; E66.01 Morbid (severe) obesity due to excess calories; E11.40 Type 2 diabetes mellitus with diabetic neuropathy, unspecified; F41.9 Anxiety disorder, unspecified; F32.9 Major depressive disorder, single episode, unspecified; Z88.1 Allergy status to other antibiotic agents; Z88.5 Allergy status to narcotic agent; Z90.49 Acquired absence of other specified parts of digestive tract; Z90.89 Acquired absence of other organs; Z68.42 Body mass index [BMI] 45.0-49.9, adult; W18.30XA Fall on same level, unspecified, initial encounter; Y93.01 Activity, walking, marching and hiking
CPT/HCPCS: 73110

== ENCOUNTER → 2018-06-17 | Outpatient (CLI) | payer MEDICARE, MEDICAID ==
[~2018-06-17] MED LIST changes: +RT-ALBUTEROL SULF 2.5 MG/3 ML PRE-MIX VIAL INH ONE
--- NOTE | 2018-06-17 15:34 | Diagnostic Imaging Report ---
PROCEDURE: CT chest without contrast. TECHNIQUE: Multiple contiguous axial images were obtained through the chest without the use of intravenous contrast. INDICATION: Lung nodule. FINDINGS: The previous CT chest exam of 11/28/2015 noted small (3-5 mm) scattered subpleural nodules in the right lung. Those parenchymal densities are again visualized on this study and do not seem to have changed adversely. No new parenchymal abnormality is noted. As noted on the prior exam, there are diffuse ground-glass densities in both lungs. These findings are felt to be chronic in nature. There are also emphysematous changes involving both lungs including bullous/bleb formation in both lung apices. There is no evidence for pneumonia, failure, or pleural effusion to indicate an acute abnormality. The heart size is at the upper limits of normal but stable when compared to the prior study. The aorta is not abnormally dilated. There is no mediastinal or hilar adenopathy. The thyroid gland where visualized is unremarkable. There is no obvious breast mass. The sections through the upper abdomen fail to show any sign of an acute abnormality. The bone windows are unremarkable for a fracture or for a destructive lesion. IMPRESSION: 1. The small parenchymal densities in the right lung seen previously are again evident and not significantly changed. Most likely, they are benign. A six-month followup exam would be recommended for continued evaluation, however. 2. There are chronic pulmonary changes evident, but there is no sign of an acute cardiopulmonary abnormality. Dictated by: Dictated on workstation # [id number]
== END ==
LOC: RT 14:19
PROVIDERS: ATTEND Nurse Practitioner Family
DX: R91.1 Solitary pulmonary nodule (principal); R09.02 Hypoxemia; R06.02 Shortness of breath; E66.2 Morbid (severe) obesity with alveolar hypoventilation; Z72.0 Tobacco use
CPT/HCPCS: 71250; 94060; 94726; 94729

== ENCOUNTER 2018-11-11 16:01 | Emergency (ER) | payer MEDICARE, MEDICAID ==
[~2018-11-11] VITALS: Ht 167.6 cm; Wt 140.6 kg
[~2018-11-11 16:01] MED LIST changes: -GABA600T2 PO; +GBPN600T PO; -RT-ALBUTEROL SULF 2.5 MG/3 ML PRE-MIX VIAL INH ONE
--- OUTSIDE RECORDS SUMMARY | 2018-11-11 16:10 | XMS REPORT | Clinical Summary ---
Author Author [facility] Organization [facility] Address Unknown Phone Unavailable Care Team Providers Care Cardiac Nurse Specialist Name Role Phone Kumar Man MD Unavailable Maria Eugenia Kirby MA,CCC-STUDENT RECORDS SPECIALIST Unavailable Malka Rhoades MA,CCC-STUDENT RECORDS SPECIALIST Unavailable Unavailable Cris Mejía MD PCP Marianna Puentes RN Unavailable Unavailable Ashlyn Merrill MA,CCC-STUDENT RECORDS SPECIALIST Unavailable Unavailable Source Comments Some departments are not documenting in the electronic medical record. If you do not see the information that you expected, contact Release of Information in the Health Information Management department at [phone] for further assistance in locating additional records.[facility] Allergies Comments Active Allergy Reactions Severity Noted Date Erythromycin STOMACH UPSET 06/08/2013 Per patient has caused increased LFTs in the past Acetaminophen UNKNOWN, SEE 06/08/2013 COMMENTS Medications End Date Status Medication Sig Dispensed Refills Start Date Active tiotropium (SPIRIVA) 18 Inhale 18 mcg 0 mcg capsule for inhaler by mouth daily. Active levothyroxine (SYNTHROID) Take 50 mcg 0 50 mcg tablet by mouth daily. Active montelukast (SINGULAIR) Take 10 mg by 0 10 mg tablet mouth at bedtime daily. Active rOPINIRole (REQUIP) 0.25 Take 0.25 mg 0 mg tablet by mouth three times daily. Active budesonide respule Inhale 0.5 mg 0 (PULMICORT) 0.5 mg/2 mL solution as nebulizer solution directed twice daily. Active furosemide (LASIX) 80 mg Take 80 mg by 0 tablet mouth twice daily. Active spironolactone Take 25 mg by 0 (ALDACTONE) 25 mg tablet mouth daily. Active magnesium oxide (MAG-OX) Take 400 mg 0 400 mg tablet by mouth daily. Active predniSONE (DELTASONE) 20 Take 20 mg by 0 mg tablet mouth daily. Active azaTHIOprine (IMURAN) 50 Take 50 mg by 0 mg tablet mouth daily. Active pantoprazole DR Take 40 mg by 0 (PROTONIX) 40 mg tablet mouth daily. Active glipiZIDE CR (GLUCOTROL Take 2.5 mg 0 XL) 2.5 mg tablet by mouth daily. Active cetirizine (ZYRTEC) 10 mg Take 10 mg by 0 tablet mouth daily. Active ergocalciferol (VITAMIN Take 50,000 0 D) 50,000 unit capsule Units by mouth every Friday. Active phosphorus (PHOSPHA 250 Take 1 Tab by 0 NEUTRAL) 250 mg tablet mouth three times daily. Active methocarbamol (ROBAXIN) Take 1,000 mg 0 500 mg tablet by mouth four times daily. Active potassium chloride SR Take 40 mEq 0 (K-DUR) 20 mEq tablet by mouth twice daily. Active metolazone (ZAROXOLYN) Take 2.5 mg 0 2.5 mg tablet by mouth every morning. Active pregabalin (LYRICA) 100 Take 100 mg 0 mg capsule by mouth three times daily. Active fenofibrate(+) (TRIGLIDE) Take 160 mg 0 160 mg tablet by mouth daily. Active DULoxetine DR (CYMBALTA) Take 90 mg by 0 60 mg capsule mouth daily. Active albuterol 0.5% Inhale 2.5 mg 0 (PROVENTIL; VENTOLIN) 2.5 solution as mg/0.5 mL Nebu nebulizer directed solution every 6 hours as needed. Active traMADol (ULTRAM) 50 mg Take 1 Tab by 30 Tab 0 tablet mouth every 6 3 hours as needed for Pain. 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 Last Filed Vital Signs Time Taken Vital Sign Reading 11/26/2013 2:24 PM [facility] Blood Pressure 149/82 11/26/2013 2:24 PM [facility] Pulse 105 07/03/2013 7:38 AM CDT Temperature 36.6 C (97.9 F) - Respiratory Rate - 07/03/2013 7:38 AM CDT Oxygen Saturation 95% - Inhaled Oxygen - Concentration 11/26/2013 2:24 PM TABLE [facility] Weight 152.9 kg (337 lb) 11/26/2013 2:24 PM TABLE [facility] Height 167.6 cm (5' 6") 11/26/2013 2:24 PM TABLE [facility] Body Mass Index 54.39 Plan of Treatment Health Maintenance Due Date Last Done Comments PHYSICAL (COMPREHENSIVE) 01/04/1983 EXAM HIV SCREENING 01/04/1991 DTAP/TDAP VACCINES (1 - 01/04/1994 Tdap) CERVICAL CANCER SCREENING 01/04/2006 BREAST CANCER SCREENING 2016 INFLUENZA VACCINE 04/22/2018 Results Not on filefrom Last 3 Months Insurance Payer Benefit Subscriber ID Type Phone Address Plan / Group MEDICARE MEDICARE xxxxxxxxxx Medicare PART A [place] B [place] [employer] xxxxxxxxxxx Medicaid [employer] Advance Directives Patient has advance care planning documents, and code status on file. For more information, please contact: [facility] [address] [place] [address] Date Inactivated Comments Code Status Date Activated 07/03/2013 1:05 PM Full Code 07/02/2013 10:25 AM Provider has discussed Code Status No, discussion not w/Patient or Family? necessary based on Dx
[2018-11-11] MEDS ORDERED: methylPREDNISolone 80 MG/ML (DEPO MEDROL) VIAL IM ONE (16:30)
[2018-11-11] MEDS ORDERED: BUPIVACAINE 0.5% 30 ML (SENSORCAINE) VIAL INJ ONE (16:30)
[2018-11-11] MEDS ORDERED: LIDOCAINE/EPI 2% 1:100,00 (XYLOCAINE) 20 ML VIAL INJ ONE (16:30)
--- OUTSIDE RECORDS SUMMARY | 2018-11-11 16:36 | XMS REPORT | Continuity of Care Document ---
Author Author [facility] Address Unknown Phone Unavailable Allergies Active Description Code Type Severity Reaction Onset Reported/Identified Relationship to Patient Clinical Status Yes aspirin Drug Allergy N/A N/A 11/01/2008 Yes aspirin Drug Allergy 11/01/2008 Yes Erythrocin Drug Allergy N/A N/A 03/17/2012 Yes Tylenol Drug Allergy N/A N/A 03/17/2012 Yes Erythrocin Drug Allergy 03/17/2012 Yes Tylenol Drug Allergy 03/17/2012 Yes meloxicam 15 mg tablet Drug Allergy N/A N/A 01/08/2013 Yes meloxicam 15 mg tablet Drug Allergy 01/08/2013 Yes minocycline [id number] Drug Allergy Mild N/V 01/17/2016 Yes acetaminophen [id number] Drug Allergy Unknown N/A 01/17/2016 Yes erythromycin base [id number] Drug Allergy Unknown PT CAN TAKE JUAN FRANCISCO 2015 Medications There is no data. Problems Date Dx Coded Attending Type Code Diagnosis Diagnosed By 05/17/2008 FAM DAVIS, KENDALL 723.1 CERVICALGIA 05/17/2008 JESSE LOPEZ DO 723.1 CERVICALGIA 05/17/2008 723.1 CERVICALGIA 05/17/2008 723.1 CERVICALGIA 05/17/2008 723.1 CERVICALGIA 05/17/2008 723.1 CERVICALGIA 05/17/2008 723.1 CERVICALGIA 05/17/2008 723.1 CERVICALGIA 05/17/2008 723.1 CERVICALGIA 05/17/2008 723.1 CERVICALGIA 05/17/2008 723.1 CERVICALGIA 05/17/2008 723.1 CERVICALGIA 05/17/2008 723.1 CERVICALGIA 05/17/2008 723.1 CERVICALGIA 05/17/2008 723.1 CERVICALGIA 05/17/2008 723.1 CERVICALGIA 05/17/2008 723.1 CERVICALGIA 05/17/2008 723.1 CERVICALGIA 05/17/2008 723.1 CERVICALGIA 05/17/2008 723.1 CERVICALGIA 05/17/2008 723.1 CERVICALGIA 05/17/2008 723.1 CERVICALGIA 05/17/2008 723.1 CERVICALGIA 05/17/2008 723.1 CERVICALGIA 05/17/2008 LOPEZ DO, JESSE K 723.1 CERVICALGIA 05/17/2008 ABHISHEK TADEO APRN 723.1 CERVICALGIA 05/17/2008 SARAH KIM MD 723.1 CERVICALGIA 05/17/2008 SARAH KIM MD 723.1 CERVICALGIA 05/17/2008 SARAH KIM MD 723.1 CERVICALGIA 05/17/2008 SARAH KIM MD 723.1 CERVICALGIA 05/17/2008 SARAH KIM MD 723.1 CERVICALGIA 05/17/2008 YAMILETH LAURENT MD 723.1 CERVICALGIA 05/17/2008 YAMILETH LAURENT MD 723.1 CERVICALGIA 05/17/2008 LOPEZ DO JESSE K 723.1 CERVICALGIA 05/17/2008 LOPEZ DO JESSE K 723.1 CERVICALGIA 05/17/2008 LOPEZ DO JESSE K 723.1 CERVICALGIA 05/17/2008 LOPEZ DO JESSE K 723.1 CERVICALGIA 05/17/2008 YAMILETH LAURENT MD 723.1 CERVICALGIA 05/17/2008 YAMILETH LAURENT MD 723.1 CERVICALGIA 05/17/2008 LOPEZ CLEO CASEA K 723.1 CERVICALGIA 05/17/2008 YAMILETH LAURENT MD 723.1 CERVICALGIA 05/17/2008 ZENA UMANZOR APRN 723.1 CERVICALGIA 05/17/2008 ZENA UMANZOR APRN 723.1 CERVICALGIA 05/17/2008 ZENA UMANZOR APRN 723.1 CERVICALGIA 05/17/2008 ZENA UMANZOR APRN 723.1 CERVICALGIA 05/17/2008 JESSE LOPEZ DO K 723.1 CERVICALGIA 05/17/2008 ZENA UMANZOR APRN 723.1 CERVICALGIA 05/17/2008 ZENA UMANZOR APRN 723.1 CERVICALGIA 05/17/2008 ZENA UMANZOR APRN 723.1 CERVICALGIA 05/17/2008 NOÉ SALES PRODUCER, ZENA T 723.1 CERVICALGIA 05/17/2008 NOÉ SALES PRODUCER, ZENA T 723.1 CERVICALGIA 05/17/2008 LOPEZ DO, JESSE K 723.1 CERVICALGIA 05/17/2008 LOPEZ DO, JESSE K 723.1 CERVICALGIA 05/17/2008 NOÉ SALES PRODUCER, ZENA T 723.1 CERVICALGIA 05/17/2008 NOÉ SALES PRODUCER, ZENA T 723.1 CERVICALGIA 05/17/2008 YAMILETH LAURENT MD 723.1 CERVICALGIA 05/17/2008 NOÉ SALES PRODUCER, ZENA T 723.1 CERVICALGIA 05/17/2008 NOÉ SALES PRODUCER, ZENA T 723.1 CERVICALGIA 05/17/2008 NOÉ SALES PRODUCER, ZENA T 723.1 CERVICALGIA 05/17/2008 NOÉ SALES PRODUCER, ZENA T 723.1 CERVICALGIA 05/17/2008 NOÉ SALES PRODUCER, ZENA T 723.1 CERVICALGIA 05/17/2008 NOÉ SALES PRODUCERZENA Treviño T 723.1 CERVICALGIA 05/17/2008 LOPEZ DO JESSE K 723.1 CERVICALGIA 05/17/2008 NOÉ SALES PRODUCER, ZENA T 723.1 CERVICALGIA 05/17/2008 NOÉ SALES PRODUCER, ZENA T 723.1 CERVICALGIA 05/17/2008 LOPEZ DO, JESSE K 723.1 CERVICALGIA 05/17/2008 LOPEZ DO JESSE K 723.1 CERVICALGIA 05/17/2008 NOÉ NETTLES ZENA T 723.1 CERVICALGIA 05/17/2008 KENDALL OTTO MD 723.1 CERVICALGIA 07/19/2008 KENDALL OTTO MD 719.41 joint pain, localized in the shoulder 07/19/2008 KENDALL OTTO MD 724.2 lower back pain 07/19/2008 LOPEZ CLEO CASEA K 719.41 joint pain, localized in the shoulder 07/19/2008 CLEO LOPEZ DOA K 724.2 lower back pain 07/19/2008 719.41 joint pain, localized in the shoulder 07/19/2008 724.2 lower back pain 07/19/2008 719.41 joint pain, localized in the shoulder 07/19/2008 724.2 lower back pain 07/19/2008 719.41 joint pain, localized in the shoulder 07/19/2008 724.2 lower back pain 07/19/2008 719.41 joint pain, localized in the shoulder 07/19/2008 724.2 lower back pain 07/19/2008 719.41 joint pain, localized in the shoulder 07/19/2008 724.2 lower back pain 07/19/2008 719.41 joint pain, localized in the shoulder 07/19/2008 724.2 lower back pain 07/19/2008 719.41 joint pain, localized in the shoulder 07/19/2008 724.2 lower back pain 07/19/2008 719.41 joint pain, localized in the shoulder 07/19/2008 724.2 lower back pain 07/19/2008 719.41 joint pain, localized in the shoulder 07/19/2008 724.2 lower back pain 07/19/2008 719.41 joint pain, localized in the shoulder 07/19/2008 724.2 lower back pain 07/19/2008 719.41 joint pain, localized in the shoulder 07/19/2008 724.2 lower back pain 07/19/2008 719.41 joint pain, localized in the shoulder 07/19/2008 724.2 lower back pain 07/19/2008 719.41 joint pain, localized in the shoulder 07/19/2008 724.2 lower back pain 07/19/2008 719.41 joint pain, localized in the shoulder 07/19/2008 724.2 lower back pain 07/19/2008 719.41 joint pain, localized in the shoulder 07/19/2008 724.2 lower back pain 07/19/2008 719.41 joint pain, localized in the shoulder 07/19/2008 724.2 lower back pain 07/19/2008 719.41 joint pain, localized in the shoulder 07/19/2008 724.2 lower back pain 07/19/2008 719.41 joint pain, localized in the shoulder 07/19/2008 724.2 lower back pain 07/19/2008 719.41 joint pain, localized in the shoulder 07/19/2008 724.2 lower back pain 07/19/2008 719.41 joint pain, localized in the shoulder 07/19/2008 724.2 lower back pain 07/19/2008 719.41 joint pain, localized in the shoulder 07/19/2008 724.2 lower back pain 07/19/2008 719.41 joint pain, localized in the shoulder 07/19/2008 724.2 lower back pain 07/19/2008 LOPEZ DOCLEOA K 719.41 joint pain, localized in the shoulder 07/19/2008 LOPEZ DO, JESSE K 724.2 lower back pain 07/19/2008 ABHISHEK TADEO APRN R 719.41 joint pain, localized in the shoulder 07/19/2008 ABHISHEK TADEO APRN R 724.2 lower back pain 07/19/2008 SARAH KIM MD 719.41 joint pain, localized in the shoulder 07/19/2008 SARAH KIM MD 724.2 lower back pain 07/19/2008 SARAH KIM MD 719.41 joint pain, localized in the shoulder 07/19/2008 SARAH KIM MD 724.2 lower back pain 07/19/2008 SARAH KIM MD 719.41 joint pain, localized in the shoulder 07/19/2008 SARAH KIM MD 724.2 lower back pain 07/19/2008 SARAH KIM MD 719.41 joint pain, localized in the shoulder 07/19/2008 SARAH KIM MD 724.2 lower back pain 07/19/2008 SARAH KIM MD 719.41 joint pain, localized in the shoulder 07/19/2008 SARAH KIM MD 724.2 lower back pain 07/19/2008 YAMILETH LAURENT MD 719.41 joint pain, localized in the shoulder 07/19/2008 YAMILETH LAURENT MD 724.2 lower back pain 07/19/2008 YAMILETH LAURENT MD 719.41 joint pain, localized in the shoulder 07/19/2008 YAMILETH LAURENT MD 724.2 lower back pain 07/19/2008 JOHN DOCLEOA K 719.41 joint pain, localized in the shoulder 07/19/2008 LOPEZ DO JESSE K 724.2 lower back pain 07/19/2008 LOPEZ DO JESSE K 719.41 joint pain, localized in the shoulder 07/19/2008 LOPEZ DO JESSE K 724.2 lower back pain 07/19/2008 LOPEZ DO JESSE K 719.41 joint pain, localized in the shoulder 07/19/2008 LOPEZ DO, JESSE K 724.2 lower back pain 07/19/2008 LOPEZ DO, JESSE K 719.41 joint pain, localized in the shoulder 07/19/2008 LOPEZ DO, JESSE K 724.2 lower back pain 07/19/2008 YAMILETH LAURENT MD 719.41 joint pain, localized in the shoulder 07/19/2008 YAMILETH LAURENT MD 724.2 lower back pain 07/19/2008 YAMILETH LAURENT MD 719.41 joint pain, localized in the shoulder 07/19/2008 YAMILETH LAURENT MD 724.2 lower back pain 07/19/2008 JOHN CASE JESSE K 719.41 joint pain, localized in the shoulder 07/19/2008 JOHN CASE JESSE K 724.2 lower back pain 07/19/2008 YAMILETH LAURENT MD 719.41 joint pain, localized in the shoulder 07/19/2008 YAMILETH LAURENT MD 724.2 lower back pain 07/19/2008 ZENA UMANZOR APRN 719.41 joint pain, localized in the shoulder 07/19/2008 ZENA UMANZOR APRN T 724.2 lower back pain 07/19/2008 ZENA UMANZOR APRN T 719.41 joint pain, localized in the shoulder 07/19/2008 ZENA UMANZOR APRN T 724.2 lower back pain 07/19/2008 ZENA UMANZOR APRN T 719.41 joint pain, localized in the shoulder 07/19/2008 ZENA UMANZOR APRN T 724.2 lower back pain 07/19/2008 ZENA UMANZOR APRN T 719.41 joint pain, localized in the shoulder 07/19/2008 ZENA UMANZOR APRN T 724.2 lower back pain 07/19/2008 LOPEZ DO JESSE K 719.41 joint pain, localized in the shoulder 07/19/2008 LOPEZ DO JESSE K 724.2 lower back pain 07/19/2008 ZENA UMANZOR APRN T 719.41 joint pain, localized in the shoulder 07/19/2008 ZENA UMANZOR APRN T 724.2 lower back pain 07/19/2008 ZENA UMANZOR APRN T 719.41 joint pain, localized in the shoulder 07/19/2008 ZENA UMANZOR APRN T 724.2 lower back pain 07/19/2008 ZENA UMANZOR APRN T 719.41 joint pain, localized in the shoulder 07/19/2008 ZENA UMANZOR APRN T 724.2 lower back pain 07/19/2008 ZENA UMANZOR APRN T 719.41 joint pain, localized in the shoulder 07/19/2008 ZENA UMANZOR APRN T 724.2 lower back pain 07/19/2008 ZENA UMANZOR APRN T 719.41 joint pain, localized in the shoulder 07/19/2008 ZENA UMANZOR APRN T 724.2 lower back pain 07/19/2008 LOPEZ DO, JESSE K 719.41 joint pain, localized in the shoulder 07/19/2008 LOPEZ DO, JESSE K 724.2 lower back pain 07/19/2008 LOPEZ DO, JESSE K 719.41 joint pain, localized in the shoulder 07/19/2008 LOPEZ DO, JESSE K 724.2 lower back pain 07/19/2008 ZENA UMANZOR APRN 719.41 joint pain, localized in the shoulder 07/19/2008 ZENA UMANZOR APRN T 724.2 lower back pain 07/19/2008 ZENA UMANZOR APRN T 719.41 joint pain, localized in the shoulder 07/19/2008 ZENA UMANZOR APRN 724.2 lower back pain 07/19/2008 YAMILETH LAURENT MD 719.41 joint pain, localized in the shoulder 07/19/2008 YAMILETH LAURENT MD 724.2 lower back pain 07/19/2008 ZENA UMANZOR APRN 719.41 joint pain, localized in the shoulder 07/19/2008 ZENA UMANZOR APRN T 724.2 lower back pain 07/19/2008 ZENA UMANZOR APRN T 719.41 joint pain, localized in the shoulder 07/19/2008 ZENA UMANZOR APRN 724.2 lower back pain 07/19/2008 ZENA UMANZOR APRN T 719.41 joint pain, localized in the shoulder 07/19/2008 ZENA UMANZOR APRN T 724.2 lower back pain 07/19/2008 ZENA UMANZOR APRN T 719.41 joint pain, localized in the shoulder 07/19/2008 ZENA UMANZOR APRN T 724.2 lower back pain 07/19/2008 ZENA UMANZOR APRN T 719.41 joint pain, localized in the shoulder 07/19/2008 ZENA UMANZRO APRN T 724.2 lower back pain 07/19/2008 ZENA UMANZOR APRN T 719.41 joint pain, localized in the shoulder 07/19/2008 ZENA UMANZOR APRN T 724.2 lower back pain 07/19/2008 JESSE LOPEZ DO K 719.41 joint pain, localized in the shoulder 07/19/2008 JESSE LOPEZ DO K 724.2 lower back pain 07/19/2008 ZENA UMANZOR APRN T 719.41 joint pain, localized in the shoulder 07/19/2008 ZENA UMANZOR APRN T 724.2 lower back pain 07/19/2008 ZENA UMANZOR APRN T 719.41 joint pain, localized in the shoulder 07/19/2008 ZENA UMANZOR APRN T 724.2 lower back pain 07/19/2008 LOPEZ DOCLEOA K 719.41 joint pain, localized in the shoulder 07/19/2008 JESSE LOPEZ DO K 724.2 lower back pain 07/19/2008 LOPEZ DOCLEOA K 719.41 joint pain, localized in the shoulder 07/19/2008 CLEO LOPEZ DOA K 724.2 lower back pain 07/19/2008 ZENA UMANZOR APRN T 719.41 joint pain, localized in the shoulder 07/19/2008 ZNEA UMANZOR APRN T 724.2 lower back pain 07/19/2008 KENDALL OTTO MD 719.41 joint pain, localized in the shoulder 07/19/2008 KENDALL OTTO MD 724.2 lower back pain 08/24/2008 KENDALL OTTO MD 462 PHARYNGITIS ACUTE 08/24/2008 JESSE LOPEZ DO 462 PHARYNGITIS ACUTE 08/24/2008 462 PHARYNGITIS ACUTE 08/24/2008 462 PHARYNGITIS ACUTE 08/24/2008 462 PHARYNGITIS ACUTE 08/24/2008 462 PHARYNGITIS ACUTE 08/24/2008 462 PHARYNGITIS ACUTE 08/24/2008 462 PHARYNGITIS ACUTE 08/24/2008 462 PHARYNGITIS ACUTE 08/24/2008 462 PHARYNGITIS ACUTE 08/24/2008 462 PHARYNGITIS ACUTE 08/24/2008 462 PHARYNGITIS ACUTE 08/24/2008 462 PHARYNGITIS ACUTE 08/24/2008 462 PHARYNGITIS ACUTE 08/24/2008 462 PHARYNGITIS ACUTE 08/24/2008 462 PHARYNGITIS ACUTE 08/24/2008 462 PHARYNGITIS ACUTE 08/24/2008 462 PHARYNGITIS ACUTE 08/24/2008 462 PHARYNGITIS ACUTE 08/24/2008 462 PHARYNGITIS ACUTE 08/24/2008 462 PHARYNGITIS ACUTE 08/24/2008 462 PHARYNGITIS ACUTE 08/24/2008 462 PHARYNGITIS ACUTE 08/24/2008 462 PHARYNGITIS ACUTE 08/24/2008 JESSE LOPEZ DO K 462 PHARYNGITIS ACUTE 08/24/2008 ABHISHEK TADEO APRN 462 PHARYNGITIS ACUTE 08/24/2008 JUDY DAVIS, SARAH Law 462 PHARYNGITIS ACUTE 08/24/2008 SARAH KIM MD 462 PHARYNGITIS ACUTE 08/24/2008 SARAH KIM MD 462 PHARYNGITIS ACUTE 08/24/2008 JUDY DAVIS, SARAH Law 462 PHARYNGITIS ACUTE 08/24/2008 SARAH KIM MD 462 PHARYNGITIS ACUTE 08/24/2008 YAMILETH LAURENT MD 462 PHARYNGITIS ACUTE 08/24/2008 YAMILETH LAURENT MD 462 PHARYNGITIS ACUTE 08/24/2008 JESSE LOPEZ DO K 462 PHARYNGITIS ACUTE 08/24/2008 JESSE LOPEZ DO K 462 PHARYNGITIS ACUTE 08/24/2008 JESSE LOPEZ DO K 462 PHARYNGITIS ACUTE 08/24/2008 JESSE LOPEZ DO K 462 PHARYNGITIS ACUTE 08/24/2008 YAMILETH LAURENT MD 462 PHARYNGITIS ACUTE 08/24/2008 YAMILETH LAURENT MD 462 PHARYNGITIS ACUTE 08/24/2008 JESSE LOPEZ DO 462 PHARYNGITIS ACUTE 08/24/2008 YAMILETH LAURENT MD 462 PHARYNGITIS ACUTE 08/24/2008 ZENA UMANZOR APRN 462 PHARYNGITIS ACUTE 08/24/2008 NOÉ SALES PRODUCER, ZENA T 462 PHARYNGITIS ACUTE 08/24/2008 NOÉ NETTLES, ZENA T 462 PHARYNGITIS ACUTE 08/24/2008 NOÉ WHITEN, ZENA T 462 PHARYNGITIS ACUTE 08/24/2008 LOPEZ DO, JESSE K 462 PHARYNGITIS ACUTE 08/24/2008 NOÉ NETTLES, ZENA T 462 PHARYNGITIS ACUTE 08/24/2008 NOÉ NETTLES, ZENA T 462 PHARYNGITIS ACUTE 08/24/2008 NOÉ NETTLES, ZENA T 462 PHARYNGITIS ACUTE 08/24/2008 NOÉ WHITEN, ZENA T 462 PHARYNGITIS ACUTE 08/24/2008 NOÉ NETTLES, ZENA T 462 PHARYNGITIS ACUTE 08/24/2008 LOPEZ DO JESSE K 462 PHARYNGITIS ACUTE 08/24/2008 LOPEZ DO, JESSE K 462 PHARYNGITIS ACUTE 08/24/2008 ZENA UMANZOR APRN T 462 PHARYNGITIS ACUTE 08/24/2008 ZENA UMANZOR APRN T 462 PHARYNGITIS ACUTE 08/24/2008 YAMILETH LAURENT MD 462 PHARYNGITIS ACUTE 08/24/2008 ZENA UMANZOR APRN T 462 PHARYNGITIS ACUTE 08/24/2008 ZENA UMANZOR APRN T 462 PHARYNGITIS ACUTE 08/24/2008 ZENA UMANZOR APRN T 462 PHARYNGITIS ACUTE 08/24/2008 ZENA UMANZOR APRN T 462 PHARYNGITIS ACUTE 08/24/2008 ZENA UMANZOR APRN T 462 PHARYNGITIS ACUTE 08/24/2008 ZENA UMANZOR APRN T 462 PHARYNGITIS ACUTE 08/24/2008 LOPEZ DO JESSE K 462 PHARYNGITIS ACUTE 08/24/2008 ZENA UMANZOR APRN T 462 PHARYNGITIS ACUTE 08/24/2008 ZENA UMANZOR APRN T 462 PHARYNGITIS ACUTE 08/24/2008 LOPEZ DO JESSE K 462 PHARYNGITIS ACUTE 08/24/2008 LOPEZ DO JESSE K 462 PHARYNGITIS ACUTE 08/24/2008 ZENA UMANZOR APRN T 462 PHARYNGITIS ACUTE 08/24/2008 KENDALL OTTO MD 462 PHARYNGITIS ACUTE 11/01/2008 FAM DAVIS, KENDALL 111.2 TINEA NICOLE 11/01/2008 KENDALL OTTO MD 300.00 ANXIETY DISORDER NOS 11/01/2008 KENDALL OTTO MD 727.00 TENOSYNOVITIS 11/01/2008 JESSE LOPEZ DO 111.2 TINEA NICOLE 11/01/2008 JESSE LOPEZ DO 300.00 ANXIETY DISORDER NOS 11/01/2008 JESSE LOPEZ DO 727.00 TENOSYNOVITIS 11/01/2008 111.2 TINEA NICOLE 11/01/2008 300.00 ANXIETY DISORDER NOS 11/01/2008 727.00 TENOSYNOVITIS 11/01/2008 111.2 TINEA NICOLE 11/01/2008 300.00 ANXIETY DISORDER NOS 11/01/2008 727.00 TENOSYNOVITIS 11/01/2008 111.2 TINEA NICOLE 11/01/2008 300.00 ANXIETY DISORDER NOS 11/01/2008 727.00 TENOSYNOVITIS 11/01/2008 111.2 TINEA NICOLE 11/01/2008 300.00 ANXIETY DISORDER NOS 11/01/2008 727.00 TENOSYNOVITIS 11/01/2008 111.2 TINEA NICOLE 11/01/2008 300.00 ANXIETY DISORDER NOS 11/01/2008 727.00 TENOSYNOVITIS 11/01/2008 111.2 TINEA NICOLE 11/01/2008 300.00 ANXIETY DISORDER NOS 11/01/2008 727.00 TENOSYNOVITIS 11/01/2008 111.2 TINEA NICOLE 11/01/2008 300.00 ANXIETY DISORDER NOS 11/01/2008 727.00 TENOSYNOVITIS 11/01/2008 111.2 TINEA NICOLE 11/01/2008 300.00 ANXIETY DISORDER NOS 11/01/2008 727.00 TENOSYNOVITIS 11/01/2008 111.2 TINEA NICOLE 11/01/2008 300.00 ANXIETY DISORDER NOS 11/01/2008 727.00 TENOSYNOVITIS 11/01/2008 111.2 TINEA NICOLE 11/01/2008 300.00 ANXIETY DISORDER NOS 11/01/2008 727.00 TENOSYNOVITIS 11/01/2008 111.2 TINEA NICOLE 11/01/2008 300.00 ANXIETY DISORDER NOS 11/01/2008 727.00 TENOSYNOVITIS 11/01/2008 111.2 TINEA NICOLE 11/01/2008 300.00 ANXIETY DISORDER NOS 11/01/2008 727.00 TENOSYNOVITIS 11/01/2008 111.2 TINEA NICOLE 11/01/2008 300.00 ANXIETY DISORDER NOS 11/01/2008 727.00 TENOSYNOVITIS 11/01/2008 111.2 TINEA NICOLE 11/01/2008 300.00 ANXIETY DISORDER NOS 11/01/2008 727.00 TENOSYNOVITIS 11/01/2008 111.2 TINEA NICOLE 11/01/2008 300.00 ANXIETY DISORDER NOS 11/01/2008 727.00 TENOSYNOVITIS 11/01/2008 111.2 TINEA NICOLE 11/01/2008 300.00 ANXIETY DISORDER NOS 11/01/2008 727.00 TENOSYNOVITIS 11/01/2008 111.2 TINEA NICOLE 11/01/2008 300.00 ANXIETY DISORDER NOS 11/01/2008 727.00 TENOSYNOVITIS 11/01/2008 111.2 TINEA NICOLE 11/01/2008 300.00 ANXIETY DISORDER NOS 11/01/2008 727.00 TENOSYNOVITIS 11/01/2008 111.2 TINEA NICOLE 11/01/2008 300.00 ANXIETY DISORDER NOS 11/01/2008 727.00 TENOSYNOVITIS 11/01/2008 111.2 TINEA NICOLE 11/01/2008 300.00 ANXIETY DISORDER NOS 11/01/2008 727.00 TENOSYNOVITIS 11/01/2008 111.2 TINEA NICOLE 11/01/2008 300.00 ANXIETY DISORDER NOS 11/01/2008 727.00 TENOSYNOVITIS 11/01/2008 111.2 TINEA NICOLE 11/01/2008 300.00 ANXIETY DISORDER NOS 11/01/2008 727.00 TENOSYNOVITIS 11/01/2008 LOPEZ DOJESSE 111.2 TINEA NICOLE 11/01/2008 LOPEZ DOJESSE K 300.00 ANXIETY DISORDER NOS 11/01/2008 LOPEZ DOJESSE K 727.00 TENOSYNOVITIS 11/01/2008 ABHISHEK TADEO APRN 111.2 TINEA NICOLE 11/01/2008 ABHISHEK TADEO APRN R 300.00 ANXIETY DISORDER NOS 11/01/2008 ABHISHEK TADEO APRN R 727.00 TENOSYNOVITIS 11/01/2008 SARAH KIM MD 111.2 TINEA NICOLE 11/01/2008 SARAH KIM MD 300.00 ANXIETY DISORDER NOS 11/01/2008 SARAH KIM MD 727.00 TENOSYNOVITIS 11/01/2008 SARAH KIM MD 111.2 TINEA NICOLE 11/01/2008 SARAH KIM MD 300.00 ANXIETY DISORDER NOS 11/01/2008 SARAH KIM MD 727.00 TENOSYNOVITIS 11/01/2008 SARAH KIM MD 111.2 TINEA NICOLE 11/01/2008 SARAH KIM MD 300.00 ANXIETY DISORDER NOS 11/01/2008 SARAH KIM MD 727.00 TENOSYNOVITIS 11/01/2008 SARAH KIM MD 111.2 TINEA NICOLE 11/01/2008 SARAH KIM MD 300.00 ANXIETY DISORDER NOS 11/01/2008 SARAH KIM MD 727.00 TENOSYNOVITIS 11/01/2008 SARAH KIM MD 111.2 TINEA NICOLE 11/01/2008 SARAH KIM MD 300.00 ANXIETY DISORDER NOS 11/01/2008 SARAH KIM MD 727.00 TENOSYNOVITIS 11/01/2008 YAMILETH LAURENT MD 111.2 TINEA NICOLE 11/01/2008 YAMILETH LAURENT MD 300.00 ANXIETY DISORDER NOS 11/01/2008 YAMILETH LAURENT MD 727.00 TENOSYNOVITIS 11/01/2008 YAMILETH LAURENT MD 111.2 TINEA NICOLE 11/01/2008 YAMILETH LAURENT MD 300.00 ANXIETY DISORDER NOS 11/01/2008 YAMILETH LAURENT MD 727.00 TENOSYNOVITIS 11/01/2008 LOPEZ DO, JESSE K 111.2 TINEA NICOLE 11/01/2008 LOPEZ DO, JESSE K 300.00 ANXIETY DISORDER NOS 11/01/2008 LOPEZ DO, JESSE K 727.00 TENOSYNOVITIS 11/01/2008 LOPEZ DO, JESSE K 111.2 TINEA NICOLE 11/01/2008 LOPEZ DO, JESSE K 300.00 ANXIETY DISORDER NOS 11/01/2008 LOPEZ DO, JESSE K 727.00 TENOSYNOVITIS 11/01/2008 LOPEZ DO, JESSE K 111.2 TINEA NICOLE 11/01/2008 LOPEZ DO, JESSE K 300.00 ANXIETY DISORDER NOS 11/01/2008 LOPEZ DO, JESSE K 727.00 TENOSYNOVITIS 11/01/2008 LOPEZ DO, JESSE K 111.2 TINEA NICOLE 11/01/2008 LOPEZ DO, JESSE K 300.00 ANXIETY DISORDER NOS 11/01/2008 LOPEZ DO, JESSE K 727.00 TENOSYNOVITIS 11/01/2008 YAMILETH LAURENT MD 111.2 TINEA NICOLE 11/01/2008 YAMILETH LAURENT MD 300.00 ANXIETY DISORDER NOS 11/01/2008 YAMILETH LAURENT MD 727.00 TENOSYNOVITIS 11/01/2008 YAMILETH LAURENT MD 111.2 TINEA NICOLE 11/01/2008 YAMILETH LAURENT MD 300.00 ANXIETY DISORDER NOS 11/01/2008 YAMILETH LAURENT MD 727.00 TENOSYNOVITIS 11/01/2008 LOPEZ DO, JESSE K 111.2 TINEA NICOLE 11/01/2008 LOPEZ DO, JESSE K 300.00 ANXIETY DISORDER NOS 11/01/2008 OLPEZ DO, JESSE K 727.00 TENOSYNOVITIS 11/01/2008 YAMILETH LAURENT MD 111.2 TINEA NICOLE 11/01/2008 YAMILETH LAURENT MD 300.00 ANXIETY DISORDER NOS 11/01/2008 YAMILETH LAURENT MD 727.00 TENOSYNOVITIS 11/01/2008 ZENA UMANZOR APRN 111.2 TINEA NICOLE 11/01/2008 ZENA UMANZOR APRN 300.00 ANXIETY DISORDER NOS 11/01/2008 ZENA UMANZOR APRN 727.00 TENOSYNOVITIS 11/01/2008 ZENA UMANZOR APRN 111.2 TINEA NICOLE 11/01/2008 ZENA UMANZOR APRN 300.00 ANXIETY DISORDER NOS 11/01/2008 ZENA UMANZOR APRN 727.00 TENOSYNOVITIS 11/01/2008 ZENA UMANZOR APRN 111.2 TINEA NICOLE 11/01/2008 NOÉ NETTLES, ZENA T 300.00 ANXIETY DISORDER NOS 11/01/2008 NOÉ SALES PRODUCER, ZENA T 727.00 TENOSYNOVITIS 11/01/2008 NOÉ WHITENZENA T 111.2 TINEA NICOLE 11/01/2008 NOÉ SALES PRODUCER, ZENA T 300.00 ANXIETY DISORDER NOS 11/01/2008 NOÉ WHITEN, ZENA T 727.00 TENOSYNOVITIS 11/01/2008 LOPEZ DO, JESSE K 111.2 TINEA NICOLE 11/01/2008 LOPEZ DO, JESSE K 300.00 ANXIETY DISORDER NOS 11/01/2008 LOPEZ DO, JESES K 727.00 TENOSYNOVITIS 11/01/2008 ZENA UMANZOR APRN T 111.2 TINEA NICOLE 11/01/2008 NOÉ NETTLES, ZENA T 300.00 ANXIETY DISORDER NOS 11/01/2008 NOÉ NETTLES, ZENA T 727.00 TENOSYNOVITIS 11/01/2008 ZENA UMANZOR APRN T 111.2 TINEA NICOLE 11/01/2008 ZENA UMANZOR APRN T 300.00 ANXIETY DISORDER NOS 11/01/2008 NOÉ WHITEN, ZENA T 727.00 TENOSYNOVITIS 11/01/2008 NOÉ WHITENZENA T 111.2 TINEA NICOLE 11/01/2008 NOÉ WHITEN, ZENA T 300.00 ANXIETY DISORDER NOS 11/01/2008 NOÉ NETTLES, ZENA T 727.00 TENOSYNOVITIS 11/01/2008 ZENA UMANZOR APRN T 111.2 TINEA NICOLE 11/01/2008 ZENA UMANZOR APRN T 300.00 ANXIETY DISORDER NOS 11/01/2008 NOÉ NETTLES, ZENA T 727.00 TENOSYNOVITIS 11/01/2008 NOÉ SALES PRODUCERZENA T 111.2 TINEA NICOLE 11/01/2008 NOÉ SALES PRODUCER, ZENA T 300.00 ANXIETY DISORDER NOS 11/01/2008 NOÉ WHITEN, ZENA T 727.00 TENOSYNOVITIS 11/01/2008 LOPEZ DO, JESSE K 111.2 TINEA NICOLE 11/01/2008 LOPEZ DO, JESSE K 300.00 ANXIETY DISORDER NOS 11/01/2008 LOPEZ DO, JESSE K 727.00 TENOSYNOVITIS 11/01/2008 LOPEZ DO, JESSE K 111.2 TINEA NICOLE 11/01/2008 LOPEZ DO, JESSE K 300.00 ANXIETY DISORDER NOS 11/01/2008 LOPEZ DO, JESSE K 727.00 TENOSYNOVITIS 11/01/2008 ZENA UMANZOR APRN T 111.2 TINEA NICOLE 11/01/2008 NOÉ NETTLES, ZENA T 300.00 ANXIETY DISORDER NOS 11/01/2008 NOÉ NETTLES, ZENA T 727.00 TENOSYNOVITIS 11/01/2008 ZENA UMANZOR APRN T 111.2 TINEA NICOLE 11/01/2008 NOÉ NETTLES ZENA T 300.00 ANXIETY DISORDER NOS 11/01/2008 NOÉ NETTLES, ZENA T 727.00 TENOSYNOVITIS 11/01/2008 YAMILETH LAURENT MD 111.2 TINEA NICOLE 11/01/2008 YAMILETH LAURENT MD 300.00 ANXIETY DISORDER NOS 11/01/2008 YAMILETH LAURENT MD 727.00 TENOSYNOVITIS 11/01/2008 ZENA UMANZOR APRN T 111.2 TINEA NICOLE 11/01/2008 ZENA UMANZOR APRN T 300.00 ANXIETY DISORDER NOS 11/01/2008 NOÉ NETTLES ZENA T 727.00 TENOSYNOVITIS 11/01/2008 ZENA UMANZOR APRN T 111.2 TINEA NICOLE 11/01/2008 NOÉ NETTLES ZENA T 300.00 ANXIETY DISORDER NOS 11/01/2008 NOÉ NETTLES ZENA T 727.00 TENOSYNOVITIS 11/01/2008 ZENA UMANZOR APRN T 111.2 TINEA NICOLE 11/01/2008 NOÉ NETTLES ZENA T 300.00 ANXIETY DISORDER NOS 11/01/2008 NOÉ NETTLES ZENA T 727.00 TENOSYNOVITIS 11/01/2008 NOÉ NETTLES ZENA T 111.2 TINEA NICOLE 11/01/2008 NOÉ NETTLES ZENA T 300.00 ANXIETY DISORDER NOS 11/01/2008 NOÉ NETTLES ZENA T 727.00 TENOSYNOVITIS 11/01/2008 ZENA UMANZOR APRN T 111.2 TINEA NICOLE 11/01/2008 NOÉ NETTLES ZENA T 300.00 ANXIETY DISORDER NOS 11/01/2008 NOÉ NETTLES ZENA T 727.00 TENOSYNOVITIS 11/01/2008 ZENA UMANZOR APRN T 111.2 TINEA NICOLE 11/01/2008 ZENA UMANZOR APRN T 300.00 ANXIETY DISORDER NOS 11/01/2008 NOÉ NETTLES ZENA T 727.00 TENOSYNOVITIS 11/01/2008 LOPEZ DO, JESSE K 111.2 TINEA NICOLE 11/01/2008 LOPEZ DO, JESSE K 300.00 ANXIETY DISORDER NOS 11/01/2008 LOPEZ DO, JESSE K 727.00 TENOSYNOVITIS 11/01/2008 ZENA UMANZOR APRN T 111.2 TINEA NICOLE 11/01/2008 NOÉ NETTLES ZENA T 300.00 ANXIETY DISORDER NOS 11/01/2008 NOÉ NETTLES ZENA T 727.00 TENOSYNOVITIS 11/01/2008 ZENA UMANZOR APRN T 111.2 TINEA NICOLE 11/01/2008 ZENA UMANZOR APRN T 300.00 ANXIETY DISORDER NOS 11/01/2008 NOÉ NETTLES ZENA T 727.00 TENOSYNOVITIS 11/01/2008 LOPEZ DO, JESSE K 111.2 TINEA NICOLE 11/01/2008 LOPEZ DO, JESSE K 300.00 ANXIETY DISORDER NOS 11/01/2008 LOPEZ DO, JESSE K 727.00 TENOSYNOVITIS 11/01/2008 LOPEZ DO, JESSE K 111.2 TINEA NICOLE 11/01/2008 LOPEZ DO, JESSE K 300.00 ANXIETY DISORDER NOS 11/01/2008 LOPEZ DO, JESSE K 727.00 TENOSYNOVITIS 11/01/2008 ZENA UMANZOR APRN T 111.2 TINEA NICOLE 11/01/2008 ZENA UMANZOR APRN T 300.00 ANXIETY DISORDER NOS 11/01/2008 ZENA UMANZOR APRN T 727.00 TENOSYNOVITIS 11/01/2008 KENDALL OTTO MD 111.2 TINEA NICOLE 11/01/2008 KENDALL OTTO MD 300.00 ANXIETY DISORDER NOS 11/01/2008 KENDALL OTTO MD 727.00 TENOSYNOVITIS 01/03/2009 KENDALL OTTO MD 782.3 DEPENDENT EDEMA DUE TO INACTIVITY 01/03/2009 JOHN DO, JESSE K 782.3 DEPENDENT EDEMA DUE TO INACTIVITY 01/03/2009 782.3 DEPENDENT EDEMA DUE TO INACTIVITY 01/03/2009 782.3 DEPENDENT EDEMA DUE TO INACTIVITY 01/03/2009 782.3 DEPENDENT EDEMA DUE TO INACTIVITY 01/03/2009 782.3 DEPENDENT EDEMA DUE TO INACTIVITY 01/03/2009 782.3 DEPENDENT EDEMA DUE TO INACTIVITY 01/03/2009 782.3 DEPENDENT EDEMA DUE TO INACTIVITY 01/03/2009 782.3 DEPENDENT EDEMA DUE TO INACTIVITY 01/03/2009 782.3 DEPENDENT EDEMA DUE TO INACTIVITY 01/03/2009 782.3 DEPENDENT EDEMA DUE TO INACTIVITY 01/03/2009 782.3 DEPENDENT EDEMA DUE TO INACTIVITY 01/03/2009 782.3 DEPENDENT EDEMA DUE TO INACTIVITY 01/03/2009 782.3 DEPENDENT EDEMA DUE TO INACTIVITY 01/03/2009 782.3 DEPENDENT EDEMA DUE TO INACTIVITY 01/03/2009 782.3 DEPENDENT EDEMA DUE TO INACTIVITY 01/03/2009 782.3 DEPENDENT EDEMA DUE TO INACTIVITY 01/03/2009 782.3 DEPENDENT EDEMA DUE TO INACTIVITY 01/03/2009 782.3 DEPENDENT EDEMA DUE TO INACTIVITY 01/03/2009 782.3 DEPENDENT EDEMA DUE TO INACTIVITY 01/03/2009 782.3 DEPENDENT EDEMA DUE TO INACTIVITY 01/03/2009 782.3 DEPENDENT EDEMA DUE TO INACTIVITY 01/03/2009 782.3 DEPENDENT EDEMA DUE TO INACTIVITY 01/03/2009 782.3 DEPENDENT EDEMA DUE TO INACTIVITY 01/03/2009 LOPEZ DOJESSE K 782.3 DEPENDENT EDEMA DUE TO INACTIVITY 01/03/2009 ABHISHEK TADEO APRN 782.3 DEPENDENT EDEMA DUE TO INACTIVITY 01/03/2009 SARAH KIM MD 782.3 DEPENDENT EDEMA DUE TO INACTIVITY 01/03/2009 SARAH KIM MD 782.3 DEPENDENT EDEMA DUE TO INACTIVITY 01/03/2009 SARAH KIM MD 782.3 DEPENDENT EDEMA DUE TO INACTIVITY 01/03/2009 SARAH KIM MD 782.3 DEPENDENT EDEMA DUE TO INACTIVITY 01/03/2009 SARAH KIM MD 782.3 DEPENDENT EDEMA DUE TO INACTIVITY 01/03/2009 YAMILETH LAURENT MD 782.3 DEPENDENT EDEMA DUE TO INACTIVITY 01/03/2009 YAMILETH LAURENT MD 782.3 DEPENDENT EDEMA DUE TO INACTIVITY 01/03/2009 LOPEZ DOCLEOA K 782.3 DEPENDENT EDEMA DUE TO INACTIVITY 01/03/2009 LOPEZ DO JESSE K 782.3 DEPENDENT EDEMA DUE TO INACTIVITY 01/03/2009 LOPEZ DOCLEOA K 782.3 DEPENDENT EDEMA DUE TO INACTIVITY 01/03/2009 LOPEZ DO, JESSE K 782.3 DEPENDENT EDEMA DUE TO INACTIVITY 01/03/2009 YAMILETH LAURENT MD 782.3 DEPENDENT EDEMA DUE TO INACTIVITY 01/03/2009 YAMILETH LAURENT MD 782.3 DEPENDENT EDEMA DUE TO INACTIVITY 01/03/2009 LOPEZ DO, JESSE K 782.3 DEPENDENT EDEMA DUE TO INACTIVITY 01/03/2009 YAMILETH LAURENT MD 782.3 DEPENDENT EDEMA DUE TO INACTIVITY 01/03/2009 ZENA UMANZOR APRN 782.3 DEPENDENT EDEMA DUE TO INACTIVITY 01/03/2009 ZENA UMANZOR APRN 782.3 DEPENDENT EDEMA DUE TO INACTIVITY 01/03/2009 ZENA UMANZOR APRN 782.3 DEPENDENT EDEMA DUE TO INACTIVITY 01/03/2009 ZENA UMANZOR APRN 782.3 DEPENDENT EDEMA DUE TO INACTIVITY 01/03/2009 LOPEZ DO, JESSE K 782.3 DEPENDENT EDEMA DUE TO INACTIVITY 01/03/2009 ZENA UMANZOR APRN 782.3 DEPENDENT EDEMA DUE TO INACTIVITY 01/03/2009 ZENA UMANZOR APRN 782.3 DEPENDENT EDEMA DUE TO INACTIVITY 01/03/2009 ZENA UMANZOR APRN 782.3 DEPENDENT EDEMA DUE TO INACTIVITY 01/03/2009 ZENA UMANZOR APRN 782.3 DEPENDENT EDEMA DUE TO INACTIVITY 01/03/2009 ZENA UMANZOR APRN 782.3 DEPENDENT EDEMA DUE TO INACTIVITY 01/03/2009 LOPEZ DO, JESSE K 782.3 DEPENDENT EDEMA DUE TO INACTIVITY 01/03/2009 LOPEZ DO, JESSE K 782.3 DEPENDENT EDEMA DUE TO INACTIVITY 01/03/2009 ZENA UMANZOR APRN 782.3 DEPENDENT EDEMA DUE TO INACTIVITY 01/03/2009 ZENA UMANZOR APRN 782.3 DEPENDENT EDEMA DUE TO INACTIVITY 01/03/2009 YAMILETH LAURENT MD 782.3 DEPENDENT EDEMA DUE TO INACTIVITY 01/03/2009 ZENA UMANZOR APRN 782.3 DEPENDENT EDEMA DUE TO INACTIVITY 01/03/2009 ZENA UMANZOR APRN 782.3 DEPENDENT EDEMA DUE TO INACTIVITY 01/03/2009 ZENA UMANZOR APRN 782.3 DEPENDENT EDEMA DUE TO INACTIVITY 01/03/2009 ZENA UMANZOR APRN 782.3 DEPENDENT EDEMA DUE TO INACTIVITY 01/03/2009 NOÉ SALES PRODUCER, ZENA T 782.3 DEPENDENT EDEMA DUE TO INACTIVITY 01/03/2009 ZENA UMANZOR APRN 782.3 DEPENDENT EDEMA DUE TO INACTIVITY 01/03/2009 JESSE LOPEZ DO 782.3 DEPENDENT EDEMA DUE TO INACTIVITY 01/03/2009 ZENA UMANZOR APRN 782.3 DEPENDENT EDEMA DUE TO INACTIVITY 01/03/2009 ZENA UMANZOR APRN 782.3 DEPENDENT EDEMA DUE TO INACTIVITY 01/03/2009 JESSE LOPEZ DO K 782.3 DEPENDENT EDEMA DUE TO INACTIVITY 01/03/2009 JESSE LOPEZ DO 782.3 DEPENDENT EDEMA DUE TO INACTIVITY 01/03/2009 ZENA UMANZOR APRN 782.3 DEPENDENT EDEMA DUE TO INACTIVITY 01/03/2009 KENDALL OTTO MD 782.3 DEPENDENT EDEMA DUE TO INACTIVITY 03/17/2009 KENDALL OTTO MD 354.0 CARPAL TUNNEL SYNDROME 03/17/2009 JESSE LOPEZ DO 354.0 CARPAL TUNNEL SYNDROME 03/17/2009 354.0 CARPAL TUNNEL SYNDROME 03/17/2009 354.0 CARPAL TUNNEL SYNDROME 03/17/2009 354.0 CARPAL TUNNEL SYNDROME 03/17/2009 354.0 CARPAL TUNNEL SYNDROME 03/17/2009 354.0 CARPAL TUNNEL SYNDROME 03/17/2009 354.0 CARPAL TUNNEL SYNDROME 03/17/2009 354.0 CARPAL TUNNEL SYNDROME 03/17/2009 354.0 CARPAL TUNNEL SYNDROME 03/17/2009 354.0 CARPAL TUNNEL SYNDROME 03/17/2009 354.0 CARPAL TUNNEL SYNDROME 03/17/2009 354.0 CARPAL TUNNEL SYNDROME 03/17/2009 354.0 CARPAL TUNNEL SYNDROME 03/17/2009 354.0 CARPAL TUNNEL SYNDROME 03/17/2009 354.0 CARPAL TUNNEL SYNDROME 03/17/2009 354.0 CARPAL TUNNEL SYNDROME 03/17/2009 354.0 CARPAL TUNNEL SYNDROME 03/17/2009 354.0 CARPAL TUNNEL SYNDROME 03/17/2009 354.0 CARPAL TUNNEL SYNDROME 03/17/2009 354.0 CARPAL TUNNEL SYNDROME 03/17/2009 354.0 CARPAL TUNNEL SYNDROME 03/17/2009 354.0 CARPAL TUNNEL SYNDROME 03/17/2009 354.0 CARPAL TUNNEL SYNDROME 03/17/2009 JESSE LOPEZ DO 354.0 CARPAL TUNNEL SYNDROME 03/17/2009 ABHISHEK TADEO APRN 354.0 CARPAL TUNNEL SYNDROME 03/17/2009 JUDY DAVIS, SARAH Law 354.0 CARPAL TUNNEL SYNDROME 03/17/2009 JUDY DAVIS, SARAH Law 354.0 CARPAL TUNNEL SYNDROME 03/17/2009 JUDY DAVIS, SARAH Law 354.0 CARPAL TUNNEL SYNDROME 03/17/2009 JUDY DAVIS, SARAH Law 354.0 CARPAL TUNNEL SYNDROME 03/17/2009 JUDY DAVIS, SARAH Law 354.0 CARPAL TUNNEL SYNDROME 03/17/2009 YAMILETH LAURENT MD 354.0 CARPAL TUNNEL SYNDROME 03/17/2009 YAMILETH LAURENT MD 354.0 CARPAL TUNNEL SYNDROME 03/17/2009 LOPEZ DO, JESSE K 354.0 CARPAL TUNNEL SYNDROME 03/17/2009 LOPEZ DO, JESSE K 354.0 CARPAL TUNNEL SYNDROME 03/17/2009 LOPEZ DO, JESSE K 354.0 CARPAL TUNNEL SYNDROME 03/17/2009 LOPEZ DO, JESSE K 354.0 CARPAL TUNNEL SYNDROME 03/17/2009 YAMILETH LAURENT MD 354.0 CARPAL TUNNEL SYNDROME 03/17/2009 YAMILETH LAURENT MD 354.0 CARPAL TUNNEL SYNDROME 03/17/2009 LOPEZ DO, JESSE K 354.0 CARPAL TUNNEL SYNDROME 03/17/2009 YAMILETH LAURENT MD 354.0 CARPAL TUNNEL SYNDROME 03/17/2009 ZENA UMANZOR APRN T 354.0 CARPAL TUNNEL SYNDROME 03/17/2009 ZENA UMANZOR APRN T 354.0 CARPAL TUNNEL SYNDROME 03/17/2009 ZENA UMANZOR APRN T 354.0 CARPAL TUNNEL SYNDROME 03/17/2009 ZENA UMANZOR APRN T 354.0 CARPAL TUNNEL SYNDROME 03/17/2009 LOPEZ DO, JESSE K 354.0 CARPAL TUNNEL SYNDROME 03/17/2009 ZENA UMANZOR APRN T 354.0 CARPAL TUNNEL SYNDROME 03/17/2009 ZENA UMANZOR APRN T 354.0 CARPAL TUNNEL SYNDROME 03/17/2009 ZENA UMANZOR APRN T 354.0 CARPAL TUNNEL SYNDROME 03/17/2009 ZENA UMANZOR APRN T 354.0 CARPAL TUNNEL SYNDROME 03/17/2009 ZENA UMANZOR APRN T 354.0 CARPAL TUNNEL SYNDROME 03/17/2009 LOPEZ DO, JESSE K 354.0 CARPAL TUNNEL SYNDROME 03/17/2009 LOPEZ DO, JESSE K 354.0 CARPAL TUNNEL SYNDROME 03/17/2009 NOÉ SALES PRODUCER, ZENA T 354.0 CARPAL TUNNEL SYNDROME 03/17/2009 NOÉ SALES PRODUCER, ZENA T 354.0 CARPAL TUNNEL SYNDROME 03/17/2009 YAMILETH LAURENT MD 354.0 CARPAL TUNNEL SYNDROME 03/17/2009 NOÉ SALES PRODUCER, ZENA T 354.0 CARPAL TUNNEL SYNDROME 03/17/2009 NOÉ SALES PRODUCER, ZENA T 354.0 CARPAL TUNNEL SYNDROME 03/17/2009 NOÉ SALES PRODUCER, ZENA T 354.0 CARPAL TUNNEL SYNDROME 03/17/2009 NOÉ SALES PRODUCER, ZENA T 354.0 CARPAL TUNNEL SYNDROME 03/17/2009 NOÉ SALES PRODUCER, ZENA T 354.0 CARPAL TUNNEL SYNDROME 03/17/2009 NOÉ SALES PRODUCER, ZENA T 354.0 CARPAL TUNNEL SYNDROME 03/17/2009 CLEO LOPEZ DOA K 354.0 CARPAL TUNNEL SYNDROME 03/17/2009 NOÉ SALES PRODUCER, ZENA T 354.0 CARPAL TUNNEL SYNDROME 03/17/2009 NOÉ SALES PRODUCER, EZNA T 354.0 CARPAL TUNNEL SYNDROME 03/17/2009 JOHN CASE JESSE K 354.0 CARPAL TUNNEL SYNDROME 03/17/2009 LOPEZ , JESSE K 354.0 CARPAL TUNNEL SYNDROME 03/17/2009 NOÉ SALES PRODUCER, ZENA T 354.0 CARPAL TUNNEL SYNDROME 03/17/2009 KENDALL OTTO MD 354.0 CARPAL TUNNEL SYNDROME 06/01/2009 KENDALL OTTO MD 307.40 NONORGANIC SLEEP DISORDERS 06/01/2009 KENDALL OTTO MD 780.93 memory lapses or loss 06/01/2009 KENDALL OTTO MD 784.0 headache 06/01/2009 KENDALL OTTO MD 786.05 shortness of breath 06/01/2009 JOHN CASE JESSE K 307.40 NONORGANIC SLEEP DISORDERS 06/01/2009 LOPEZ DO JESSE K 780.93 memory lapses or loss 06/01/2009 LOPEZ DO JESSE K 784.0 headache 06/01/2009 LOPEZ DO JESSE K 786.05 shortness of breath 06/01/2009 307.40 NONORGANIC SLEEP DISORDERS 06/01/2009 780.93 memory lapses or loss 06/01/2009 784.0 headache 06/01/2009 786.05 shortness of breath 06/01/2009 307.40 NONORGANIC SLEEP DISORDERS 06/01/2009 780.93 memory lapses or loss 06/01/2009 784.0 headache 06/01/2009 786.05 shortness of breath 06/01/2009 307.40 NONORGANIC SLEEP DISORDERS 06/01/2009 780.93 memory lapses or loss 06/01/2009 784.0 headache 06/01/2009 786.05 shortness of breath 06/01/2009 307.40 NONORGANIC SLEEP DISORDERS 06/01/2009 780.93 memory lapses or loss 06/01/2009 784.0 headache 06/01/2009 786.05 shortness of breath 06/01/2009 307.40 NONORGANIC SLEEP DISORDERS 06/01/2009 780.93 memory lapses or loss 06/01/2009 784.0 headache 06/01/2009 786.05 shortness of breath 06/01/2009 307.40 NONORGANIC SLEEP DISORDERS 06/01/2009 780.93 memory lapses or loss 06/01/2009 784.0 headache 06/01/2009 786.05 shortness of breath 06/01/2009 307.40 NONORGANIC SLEEP DISORDERS 06/01/2009 780.93 memory lapses or loss 06/01/2009 784.0 headache 06/01/2009 786.05 shortness of breath 06/01/2009 307.40 NONORGANIC SLEEP DISORDERS 06/01/2009 780.93 memory lapses or loss 06/01/2009 784.0 headache 06/01/2009 786.05 shortness of breath 06/01/2009 307.40 NONORGANIC SLEEP DISORDERS 06/01/2009 780.93 memory lapses or loss 06/01/2009 784.0 headache 06/01/2009 786.05 shortness of breath 06/01/2009 307.40 NONORGANIC SLEEP DISORDERS 06/01/2009 780.93 memory lapses or loss 06/01/2009 784.0 headache 06/01/2009 786.05 shortness of breath 06/01/2009 307.40 NONORGANIC SLEEP DISORDERS 06/01/2009 780.93 memory lapses or loss 06/01/2009 784.0 headache 06/01/2009 786.05 shortness of breath 06/01/2009 307.40 NONORGANIC SLEEP DISORDERS 06/01/2009 780.93 memory lapses or loss 06/01/2009 784.0 headache 06/01/2009 786.05 shortness of breath 06/01/2009 307.40 NONORGANIC SLEEP DISORDERS 06/01/2009 780.93 memory lapses or loss 06/01/2009 784.0 headache 06/01/2009 786.05 shortness of breath 06/01/2009 307.40 NONORGANIC SLEEP DISORDERS 06/01/2009 780.93 memory lapses or loss 06/01/2009 784.0 headache 06/01/2009 786.05 shortness of breath 06/01/2009 307.40 NONORGANIC SLEEP DISORDERS 06/01/2009 780.93 memory lapses or loss 06/01/2009 784.0 headache 06/01/2009 786.05 shortness of breath 06/01/2009 307.40 NONORGANIC SLEEP DISORDERS 06/01/2009 780.93 memory lapses or loss 06/01/2009 784.0 headache 06/01/2009 786.05 shortness of breath 06/01/2009 307.40 NONORGANIC SLEEP DISORDERS 06/01/2009 780.93 memory lapses or loss 06/01/2009 784.0 headache 06/01/2009 786.05 shortness of breath 06/01/2009 307.40 NONORGANIC SLEEP DISORDERS 06/01/2009 780.93 memory lapses or loss 06/01/2009 784.0 headache 06/01/2009 786.05 shortness of breath 06/01/2009 307.40 NONORGANIC SLEEP DISORDERS 06/01/2009 780.93 memory lapses or loss 06/01/2009 784.0 headache 06/01/2009 786.05 shortness of breath 06/01/2009 307.40 NONORGANIC SLEEP DISORDERS 06/01/2009 780.93 memory lapses or loss 06/01/2009 784.0 headache 06/01/2009 786.05 shortness of breath 06/01/2009 307.40 NONORGANIC SLEEP DISORDERS 06/01/2009 780.93 memory lapses or loss 06/01/2009 784.0 headache 06/01/2009 786.05 shortness of breath 06/01/2009 307.40 NONORGANIC SLEEP DISORDERS 06/01/2009 780.93 memory lapses or loss 06/01/2009 784.0 headache 06/01/2009 786.05 shortness of breath 06/01/2009 LOPEZ DOJESSE 307.40 NONORGANIC SLEEP DISORDERS 06/01/2009 JESSE LOPEZ DO 780.93 memory lapses or loss 06/01/2009 LOPEZ DO, JESSE K 784.0 headache 06/01/2009 LOPEZ DO, JESSE K 786.05 shortness of breath 06/01/2009 MARIO TADEO APRNIA R 307.40 NONORGANIC SLEEP DISORDERS 06/01/2009 MARIO TADEO APRNIA R 780.93 memory lapses or loss 06/01/2009 ABHISHEK TADEO APRN R 784.0 headache 06/01/2009 MARIO TADEO APRNIA R 786.05 shortness of breath 06/01/2009 SARAH KIM MD 307.40 NONORGANIC SLEEP DISORDERS 06/01/2009 SARAH KIM MD 780.93 memory lapses or loss 06/01/2009 SARAH KIM MD 784.0 headache 06/01/2009 SARAH KIM MD 786.05 shortness of breath 06/01/2009 SARAH KIM MD 307.40 NONORGANIC SLEEP DISORDERS 06/01/2009 SARAH KIM MD 780.93 memory lapses or loss 06/01/2009 SARAH KIM MD 784.0 headache 06/01/2009 SARAH KIM MD 786.05 shortness of breath 06/01/2009 SARAH KIM MD 307.40 NONORGANIC SLEEP DISORDERS 06/01/2009 SARAH KIM MD 780.93 memory lapses or loss 06/01/2009 SARAH KIM MD 784.0 headache 06/01/2009 SARAH KIM MD 786.05 shortness of breath 06/01/2009 SARAH KIM MD 307.40 NONORGANIC SLEEP DISORDERS 06/01/2009 SARAH KIM MD 780.93 memory lapses or loss 06/01/2009 SARAH KIM MD 784.0 headache 06/01/2009 SARAH KIM MD 786.05 shortness of breath 06/01/2009 SARAH KIM MD 307.40 NONORGANIC SLEEP DISORDERS 06/01/2009 SARAH KIM MD 780.93 memory lapses or loss 06/01/2009 SARAH KIM MD 784.0 headache 06/01/2009 SARAH KIM MD 786.05 shortness of breath 06/01/2009 YAMILETH LAURENT MD 307.40 NONORGANIC SLEEP DISORDERS 06/01/2009 YAMILETH LAURENT MD 780.93 memory lapses or loss 06/01/2009 YAMILETH LAURENT MD 784.0 headache 06/01/2009 YAMILETH LAURENT MD 786.05 shortness of breath 06/01/2009 YAMILETH LAURENT MD 307.40 NONORGANIC SLEEP DISORDERS 06/01/2009 YAMILETH LAURENT MD 780.93 memory lapses or loss 06/01/2009 YAMILETH LAURENT MD 784.0 headache 06/01/2009 YMAILETH LAURENT MD 786.05 shortness of breath 06/01/2009 LOPEZ DO, JESSE K 307.40 NONORGANIC SLEEP DISORDERS 06/01/2009 LOPEZ DO, JESSE K 780.93 memory lapses or loss 06/01/2009 LOPEZ DO, JESSE K 784.0 headache 06/01/2009 LOPEZ DO, JESSE K 786.05 shortness of breath 06/01/2009 LOPEZ DO, JESSE K 307.40 NONORGANIC SLEEP DISORDERS 06/01/2009 LOPEZ DO, JESSE K 780.93 memory lapses or loss 06/01/2009 LOPEZ DO, JESSE K 784.0 headache 06/01/2009 LOPEZ DO, JESSE K 786.05 shortness of breath 06/01/2009 LOPEZ DO, JESSE K 307.40 NONORGANIC SLEEP DISORDERS 06/01/2009 LOPEZ DO, JESSE K 780.93 memory lapses or loss 06/01/2009 LOPEZ DO, JESSE K 784.0 headache 06/01/2009 LOPEZ DO, JESSE K 786.05 shortness of breath 06/01/2009 LOPEZ DO, JESSE K 307.40 NONORGANIC SLEEP DISORDERS 06/01/2009 LOPEZ DO, JESSE K 780.93 memory lapses or loss 06/01/2009 LOPEZ DO, JESSE K 784.0 headache 06/01/2009 LOPEZ DO, JESSE K 786.05 shortness of breath 06/01/2009 YAMILETH LAURENT MD 307.40 NONORGANIC SLEEP DISORDERS 06/01/2009 YAMILETH LAURENT MD 780.93 memory lapses or loss 06/01/2009 YAMILETH LAURENT MD 784.0 headache 06/01/2009 YAMILETH LAURENT MD 786.05 shortness of breath 06/01/2009 YAMILETH LAURENT MD 307.40 NONORGANIC SLEEP DISORDERS 06/01/2009 YAMILETH LAURENT MD 780.93 MEMORY LAPSES OR LOSS 06/01/2009 YAMILETH LAURENT MD 784.0 headache 06/01/2009 YAMILETH LAURENT MD 786.05 SHORTNESS OF BREATH 06/01/2009 LOPEZ DO, JESSE K 307.40 NONORGANIC SLEEP DISORDERS 06/01/2009 LOPEZ DO, JESSE K 780.93 MEMORY LAPSES OR LOSS 06/01/2009 LOPEZ DO, JESSE K 784.0 headache 06/01/2009 LOPEZ DO, JESSE K 786.05 SHORTNESS OF BREATH 06/01/2009 YAMILETH LAURENT MD 307.40 NONORGANIC SLEEP DISORDERS 06/01/2009 YAMILETH LAURENT MD 780.93 MEMORY LAPSES OR LOSS 06/01/2009 YAMILETH LAURENT MD 784.0 headache 06/01/2009 YAMILETH LAURENT MD 786.05 SHORTNESS OF BREATH 06/01/2009 ZENA UMANZOR APRN 307.40 NONORGANIC SLEEP DISORDERS 06/01/2009 ZENA UMANZOR APRN 780.93 MEMORY LAPSES OR LOSS 06/01/2009 ZENA UMANZOR APRN T 784.0 headache 06/01/2009 ZENA UMANZOR APRN 786.05 SHORTNESS OF BREATH 06/01/2009 ZENA UMANZOR APRN 307.40 NONORGANIC SLEEP DISORDERS 06/01/2009 ZENA UMANZOR APRN T 780.93 MEMORY LAPSES OR LOSS 06/01/2009 ZENA UMANZOR APRN T 784.0 headache 06/01/2009 ZENA UMANZOR APRN 786.05 SHORTNESS OF BREATH 06/01/2009 ZENA UMANZOR APRN 307.40 NONORGANIC SLEEP DISORDERS 06/01/2009 ZENA UMANZOR APRN 780.93 MEMORY LAPSES OR LOSS 06/01/2009 ZENA UMANZOR APRN T 784.0 headache 06/01/2009 ZENA UMANZOR APRN T 786.05 SHORTNESS OF BREATH 06/01/2009 ZENA UMANZOR APRN T 307.40 NONORGANIC SLEEP DISORDERS 06/01/2009 ZENA UMANZOR APRN 780.93 MEMORY LAPSES OR LOSS 06/01/2009 ZENA UMANZOR APRN T 784.0 headache 06/01/2009 ZENA UMANZOR APRN 786.05 SHORTNESS OF BREATH 06/01/2009 LOPEZ DO, JESSE K 307.40 NONORGANIC SLEEP DISORDERS 06/01/2009 LOPEZ DO, JESSE K 780.93 MEMORY LAPSES OR LOSS 06/01/2009 LOPEZ DO, JESSE K 784.0 headache 06/01/2009 LOPEZ DO, JESSE K 786.05 SHORTNESS OF BREATH 06/01/2009 ZENA UMANZOR APRN 307.40 NONORGANIC SLEEP DISORDERS 06/01/2009 ZENA UMANZOR APRN 780.93 MEMORY LAPSES OR LOSS 06/01/2009 ZENA UMANZOR APRN T 784.0 headache 06/01/2009 ZENA UMANZOR APRN 786.05 SHORTNESS OF BREATH 06/01/2009 ZENA UMANZOR APRN T 307.40 NONORGANIC SLEEP DISORDERS 06/01/2009 ZENA UMANZOR APRN T 780.93 MEMORY LAPSES OR LOSS 06/01/2009 ZENA UMANZOR APRN T 784.0 headache 06/01/2009 ZENA UMANZOR APRN 786.05 SHORTNESS OF BREATH 06/01/2009 ZENA UMANZOR APRN 307.40 NONORGANIC SLEEP DISORDERS 06/01/2009 ZENA UMANZOR APRN 780.93 MEMORY LAPSES OR LOSS 06/01/2009 ZENA UMANZOR APRN T 784.0 headache 06/01/2009 ZENA UMANZOR APRN T 786.05 SHORTNESS OF BREATH 06/01/2009 ZENA UMANZOR APRN T 307.40 NONORGANIC SLEEP DISORDERS 06/01/2009 ZENA UMANZOR APRN 780.93 MEMORY LAPSES OR LOSS 06/01/2009 ZENA UMANZOR APRN T 784.0 headache 06/01/2009 ZENA UMANZOR APRN 786.05 SHORTNESS OF BREATH 06/01/2009 ZENA UMANZOR APRN 307.40 NONORGANIC SLEEP DISORDERS 06/01/2009 ZENA UMANZOR APRN 780.93 MEMORY LAPSES OR LOSS 06/01/2009 ZENA UMANZOR APRN T 784.0 headache 06/01/2009 ZENA UMANZOR APRN T 786.05 SHORTNESS OF BREATH 06/01/2009 LOPEZ DO, JESSE K 307.40 NONORGANIC SLEEP DISORDERS 06/01/2009 LOPEZ DO, JESSE K 780.93 MEMORY LAPSES OR LOSS 06/01/2009 LOPEZ DO, JESSE K 784.0 headache 06/01/2009 LOPEZ DO, JESSE K 786.05 SHORTNESS OF BREATH 06/01/2009 LOPEZ DO, JESSE K 307.40 NONORGANIC SLEEP DISORDERS 06/01/2009 LOPEZ DO, JESSE K 780.93 MEMORY LAPSES OR LOSS 06/01/2009 LOPEZ DO, JESSE K 784.0 headache 06/01/2009 LOPEZ DO, JESSE K 786.05 SHORTNESS OF BREATH 06/01/2009 ZENA UMANZOR APRN 307.40 NONORGANIC SLEEP DISORDERS 06/01/2009 ZENA UMANZOR APRN 780.93 MEMORY LAPSES OR LOSS 06/01/2009 ZENA UMANZOR APRN 784.0 headache 06/01/2009 ZENA UMANZOR APRN 786.05 SHORTNESS OF BREATH 06/01/2009 ZENA UMANZOR APRN 307.40 NONORGANIC SLEEP DISORDERS 06/01/2009 ZENA UMANZOR APRN 780.93 MEMORY LAPSES OR LOSS 06/01/2009 ZENA UMANZOR APRN 784.0 headache 06/01/2009 ZENA UMANZOR APRN 786.05 SHORTNESS OF BREATH 06/01/2009 YAMILETH LAURENT MD 307.40 NONORGANIC SLEEP DISORDERS 06/01/2009 YAMILETH LAURENT MD 780.93 MEMORY LAPSES OR LOSS 06/01/2009 YAMILETH LAURENT MD 784.0 headache 06/01/2009 YAMILETH LAURENT MD 786.05 SHORTNESS OF BREATH 06/01/2009 ZENA UMANZOR APRN 307.40 NONORGANIC SLEEP DISORDERS 06/01/2009 ZENA UMANZOR APRN 780.93 MEMORY LAPSES OR LOSS 06/01/2009 ZENA UMANZOR APRN 784.0 headache 06/01/2009 ZENA UMANZOR APRN 786.05 SHORTNESS OF BREATH 06/01/2009 ZENA UMANZOR APRN 307.40 NONORGANIC SLEEP DISORDERS 06/01/2009 ZENA UMANZOR APRN 780.93 MEMORY LAPSES OR LOSS 06/01/2009 ZENA UMANZOR APRN 784.0 headache 06/01/2009 ZENA UMANZOR APRN 786.05 SHORTNESS OF BREATH 06/01/2009 ZENA UMANZOR APRN 307.40 NONORGANIC SLEEP DISORDERS 06/01/2009 ZENA UMANZOR APRN 780.93 MEMORY LAPSES OR LOSS 06/01/2009 ZENA UMANZOR APRN 784.0 headache 06/01/2009 ZENA UMANZOR APRN 786.05 SHORTNESS OF BREATH 06/01/2009 ZENA UMANZOR APRN 307.40 NONORGANIC SLEEP DISORDERS 06/01/2009 ZENA UMANZOR APRN 780.93 MEMORY LAPSES OR LOSS 06/01/2009 ZENA UMANZOR APRN 784.0 headache 06/01/2009 ZENA UMANZOR APRN 786.05 SHORTNESS OF BREATH 06/01/2009 ZENA UMANZOR APRN 307.40 NONORGANIC SLEEP DISORDERS 06/01/2009 ZENA UMANZOR APRN 780.93 MEMORY LAPSES OR LOSS 06/01/2009 ZENA UMANZOR APRN 784.0 headache 06/01/2009 ZENA UMANZOR APRN 786.05 SHORTNESS OF BREATH 06/01/2009 ZENA UMANZOR APRN 307.40 NONORGANIC SLEEP DISORDERS 06/01/2009 ZENA UMANZOR APRN 780.93 MEMORY LAPSES OR LOSS 06/01/2009 ZENA UMANZOR APRN 784.0 headache 06/01/2009 ZENA UMANZRO APRN 786.05 SHORTNESS OF BREATH 06/01/2009 LOPEZ DO, JESSE K 307.40 NONORGANIC SLEEP DISORDERS 06/01/2009 LOPEZ DO, JESSE K 780.93 MEMORY LAPSES OR LOSS 06/01/2009 LOPEZ DO, JESSE K 784.0 headache 06/01/2009 LOPEZ DO, JESSE K 786.05 SHORTNESS OF BREATH 06/01/2009 ZENA UMANZOR APRN 307.40 NONORGANIC SLEEP DISORDERS 06/01/2009 ZENA UMANZOR APRN 780.93 MEMORY LAPSES OR LOSS 06/01/2009 ZENA UMANZOR APRN 784.0 headache 06/01/2009 ZENA UMANZOR APRN 786.05 SHORTNESS OF BREATH 06/01/2009 ZENA UMANZOR APRN 307.40 NONORGANIC SLEEP DISORDERS 06/01/2009 ZENA UMANZOR APRN 780.93 MEMORY LAPSES OR LOSS 06/01/2009 ZENA UMANZOR APRN 784.0 headache 06/01/2009 ZENA UMANZOR APRN 786.05 SHORTNESS OF BREATH 06/01/2009 LOPEZ DO, JESSE K 307.40 NONORGANIC SLEEP DISORDERS 06/01/2009 LOPEZ DO, JESSE K 780.93 MEMORY LAPSES OR LOSS 06/01/2009 LOPEZ DO, JESSE K 784.0 headache 06/01/2009 LOPEZ DO, JESSE K 786.05 SHORTNESS OF BREATH 06/01/2009 LOPEZ DO, JESSE K 307.40 NONORGANIC SLEEP DISORDERS 06/01/2009 JESSE LOPEZ DO 780.93 MEMORY LAPSES OR LOSS 06/01/2009 JESSE LOPEZ DO K 784.0 headache 06/01/2009 JESSE LOPEZ DO K 786.05 SHORTNESS OF BREATH 06/01/2009 ZENA UMANZOR APRN 307.40 NONORGANIC SLEEP DISORDERS 06/01/2009 ZENA UMANZOR APRN 780.93 MEMORY LAPSES OR LOSS 06/01/2009 ZENA UMANZOR APRN 784.0 headache 06/01/2009 ZENA UMANZOR APRN 786.05 SHORTNESS OF BREATH 06/01/2009 EKNDALL OTTO MD 307.40 NONORGANIC SLEEP DISORDERS 06/01/2009 KENDALL OTTO MD 780.93 memory lapses or loss 06/01/2009 KENDALL OTTO MD 784.0 headache 06/01/2009 KENDALL OTTO MD 786.05 shortness of breath 07/15/2009 Ot 716.90 07/15/2009 Ot 780.59 07/15/2009 Ot 782.3 07/15/2009 Ot 786.05 08/23/2009 Ot 305.1 08/23/2009 Ot 786.05 05/08/2010 KENDALL OTTO MD 719.46 PAIN IN JOINT, LOWER LEG 05/08/2010 JESSE LOPEZ DO 719.46 PAIN IN JOINT, LOWER LEG 05/08/2010 719.46 PAIN IN JOINT , LOWER LEG 05/08/2010 719.46 PAIN IN JOINT , LOWER LEG 05/08/2010 719.46 PAIN IN JOINT , LOWER LEG 05/08/2010 719.46 PAIN IN JOINT , LOWER LEG 05/08/2010 719.46 PAIN IN JOINT , LOWER LEG 05/08/2010 719.46 PAIN IN JOINT , LOWER LEG 05/08/2010 719.46 PAIN IN JOINT , LOWER LEG 05/08/2010 719.46 PAIN IN JOINT , LOWER LEG 05/08/2010 719.46 PAIN IN JOINT , LOWER LEG 05/08/2010 719.46 PAIN IN JOINT , LOWER LEG 05/08/2010 719.46 PAIN IN JOINT , LOWER LEG 05/08/2010 719.46 PAIN IN JOINT , LOWER LEG 05/08/2010 719.46 PAIN IN JOINT , LOWER LEG 05/08/2010 719.46 PAIN IN JOINT , LOWER LEG 05/08/2010 719.46 PAIN IN JOINT , LOWER LEG 05/08/2010 719.46 PAIN IN JOINT , LOWER LEG 05/08/2010 719.46 PAIN IN JOINT , LOWER LEG 05/08/2010 719.46 PAIN IN JOINT , LOWER LEG 05/08/2010 719.46 PAIN IN JOINT , LOWER LEG 05/08/2010 719.46 PAIN IN JOINT , LOWER LEG 05/08/2010 719.46 PAIN IN JOINT , LOWER LEG 05/08/2010 719.46 PAIN IN JOINT , LOWER LEG 05/08/2010 LOPEZ DO, JESSE K 719.46 PAIN IN JOINT, LOWER LEG 05/08/2010 ABHISHEK TADEO APRN 719.46 PAIN IN JOINT, LOWER LEG 05/08/2010 SARAH KIM MD 719.46 PAIN IN JOINT, LOWER LEG 05/08/2010 SARAH KIM MD 719.46 PAIN IN JOINT, LOWER LEG 05/08/2010 SARAH KIM MD 719.46 PAIN IN JOINT, LOWER LEG 05/08/2010 SARAH KIM MD 719.46 PAIN IN JOINT, LOWER LEG 05/08/2010 SARAH KIM MD 719.46 PAIN IN JOINT, LOWER LEG 05/08/2010 YAMILETH LAURENT MD9.46 PAIN IN JOINT, LOWER LEG 05/08/2010 YAMILETH LAURENT MD9.46 PAIN IN JOINT, LOWER LEG 05/08/2010 LOPEZ DO, JESSE K 719.46 PAIN IN JOINT, LOWER LEG 05/08/2010 LOPEZ DO, JESSE K 719.46 PAIN IN JOINT, LOWER LEG 05/08/2010 LOPEZ DO, JESSE K 719.46 PAIN IN JOINT, LOWER LEG 05/08/2010 LOPEZ DO, JESSE K 719.46 PAIN IN JOINT, LOWER LEG 05/08/2010 YAMILETH LAURENT MD9.46 PAIN IN JOINT, LOWER LEG 05/08/2010 YAMILETH LAURENT MD9.46 PAIN IN JOINT, LOWER LEG 05/08/2010 LOPEZ DO, JESSE K 719.46 PAIN IN JOINT, LOWER LEG 05/08/2010 YAMILETH LAURENT MD9.46 PAIN IN JOINT, LOWER LEG 05/08/2010 NOÉ SALES PRODUCER, ZENA T 719.46 PAIN IN JOINT, LOWER LEG 05/08/2010 ZENA UMANZOR APRN T 719.46 PAIN IN JOINT, LOWER LEG 05/08/2010 ZENA UMANZOR APRN T 719.46 PAIN IN JOINT, LOWER LEG 05/08/2010 ZENA UMANZOR APRN T 719.46 PAIN IN JOINT, LOWER LEG 05/08/2010 LOPEZ DO, JESSE K 719.46 PAIN IN JOINT, LOWER LEG 05/08/2010 ZENA UMANZOR APRN T 719.46 PAIN IN JOINT, LOWER LEG 05/08/2010 ZENA UMANZOR APRN T 719.46 PAIN IN JOINT, LOWER LEG 05/08/2010 ZENA UMANZOR APRN T 719.46 PAIN IN JOINT, LOWER LEG 05/08/2010 ZENA UMANZOR APRN T 719.46 PAIN IN JOINT, LOWER LEG 05/08/2010 ZENA UMANZOR APRN T 719.46 PAIN IN JOINT, LOWER LEG 05/08/2010 LOPEZ DO, JESSE K 719.46 PAIN IN JOINT, LOWER LEG 05/08/2010 LOPEZ DO, JESSE K 719.46 PAIN IN JOINT, LOWER LEG 05/08/2010 ZENA UMANZOR APRN 719.46 PAIN IN JOINT, LOWER LEG 05/08/2010 ZENA UMANZOR APRN 719.46 PAIN IN JOINT, LOWER LEG 05/08/2010 ANASTASIIA DAVIS, YAMILETH 719.46 PAIN IN JOINT, LOWER LEG 05/08/2010 ZENA UMANZOR APRN 719.46 PAIN IN JOINT, LOWER LEG 05/08/2010 ZENA UMANZOR APRN 719.46 PAIN IN JOINT, LOWER LEG 05/08/2010 ZENA UMNAZOR APRN T 719.46 PAIN IN JOINT, LOWER LEG 05/08/2010 ZENA UMANZOR APRN 719.46 PAIN IN JOINT, LOWER LEG 05/08/2010 ZENA UMANZOR APRN T 719.46 PAIN IN JOINT, LOWER LEG 05/08/2010 ZENA UMANZOR APRN T 719.46 PAIN IN JOINT, LOWER LEG 05/08/2010 LOEPZ DO, JESSE K 719.46 PAIN IN JOINT, LOWER LEG 05/08/2010 ZENA UMANZOR APRN T 719.46 PAIN IN JOINT, LOWER LEG 05/08/2010 ZENA UMANZOR APRN T 719.46 PAIN IN JOINT, LOWER LEG 05/08/2010 JESSE LOPEZ DO 719.46 PAIN IN JOINT, LOWER LEG 05/08/2010 JESSE LOPEZ DO 719.46 PAIN IN JOINT, LOWER LEG 05/08/2010 ZENA UMANZOR APRN 719.46 PAIN IN JOINT, LOWER LEG 05/08/2010 KENDALL OTTO MD 719.46 PAIN IN JOINT, LOWER LEG 05/17/2010 KENDALL OTTO MD 717.7 CHONDROMALACIA OF PATELLA 05/17/2010 JESSE LOPEZ DO 717.7 CHONDROMALACIA OF [place] 05/17/2010 717.7 CHONDROMALACIA OF [place] 05/17/2010 717.7 CHONDROMALACIA OF [place] 05/17/2010 717.7 CHONDROMALACIA OF [place] 05/17/2010 717.7 CHONDROMALACIA OF [place] 05/17/2010 717.7 CHONDROMALACIA OF [place] 05/17/2010 717.7 CHONDROMALACIA OF [place] 05/17/2010 717.7 CHONDROMALACIA OF [place] 05/17/2010 717.7 CHONDROMALACIA OF [place] 05/17/2010 717.7 CHONDROMALACIA OF [place] 05/17/2010 717.7 CHONDROMALACIA OF [place] 05/17/2010 717.7 CHONDROMALACIA OF [place] 05/17/2010 717.7 CHONDROMALACIA OF [place] 05/17/2010 717.7 CHONDROMALACIA OF [place] 05/17/2010 717.7 CHONDROMALACIA OF [place] 05/17/2010 717.7 CHONDROMALACIA OF [place] 05/17/2010 717.7 CHONDROMALACIA OF [place] 05/17/2010 717.7 CHONDROMALACIA OF [place] 05/17/2010 717.7 CHONDROMALACIA OF [place] 05/17/2010 717.7 CHONDROMALACIA OF [place] 05/17/2010 717.7 CHONDROMALACIA OF [place] 05/17/2010 717.7 CHONDROMALACIA OF [place] 05/17/2010 717.7 CHONDROMALACIA OF [place] 05/17/2010 JESSE LOPEZ DO 717.7 CHONDROMALACIA OF [place] 05/17/2010 ABHISHEK TADEO APRN 717.7 CHONDROMALACIA OF [place] 05/17/2010 SARAH KIM MD 717.7 CHONDROMALACIA OF [place] 05/17/2010 SARAH KIM MD 717.7 CHONDROMALACIA OF [place] 05/17/2010 SARAH KIM MD 717.7 CHONDROMALACIA OF [place] 05/17/2010 SARAH KIM MD 717.7 CHONDROMALACIA OF [place] 05/17/2010 SARAH KIM MD 717.7 CHONDROMALACIA OF [place] 05/17/2010 YAMILETH LAURENT MD.7 CHONDROMALACIA OF [place] 05/17/2010 YAMILETH LAURENT MD.7 CHONDROMALACIA OF [place] 05/17/2010 JESSE LOPEZ DO K 717.7 CHONDROMALACIA OF [place] 05/17/2010 CLEO LOPEZ DOA K 717.7 CHONDROMALACIA OF [place] 05/17/2010 JESSE LOPEZ DO K 717.7 CHONDROMALACIA OF [place] 05/17/2010 JESSE LOPEZ DO 717.7 CHONDROMALACIA OF [place] 05/17/2010 YAMILETH LAURENT MD7.7 CHONDROMALACIA OF [place] 05/17/2010 YAMILETH LAURENT MD7.7 CHONDROMALACIA OF [place] 05/17/2010 JESSE LOPEZ DO 717.7 CHONDROMALACIA OF [place] 05/17/2010 YAMILETH LAURENT MD7.7 CHONDROMALACIA OF [place] 05/17/2010 ZENA UMANZOR APRN 717.7 CHONDROMALACIA OF [place] 05/17/2010 ZENA UMANZOR APRN 717.7 CHONDROMALACIA OF [place] 05/17/2010 ZENA UMANZOR APRN 717.7 CHONDROMALACIA OF [place] 05/17/2010 ZENA UMANZOR APRN 717.7 CHONDROMALACIA OF [place] 05/17/2010 JESSE LOPEZ DO 717.7 CHONDROMALACIA OF [place] 05/17/2010 ZENA UMANZOR APRN 717.7 CHONDROMALACIA OF [place] 05/17/2010 ZENA UMANZOR APRN 717.7 CHONDROMALACIA OF [place] 05/17/2010 ZENA UMANZOR APRN 717.7 CHONDROMALACIA OF [place] 05/17/2010 ZENA UMANZOR APRN 717.7 CHONDROMALACIA OF [place] 05/17/2010 ZENA UMANZOR APRN 717.7 CHONDROMALACIA OF [place] 05/17/2010 JESSE LOPEZ DO 717.7 CHONDROMALACIA OF [place] 05/17/2010 JESSE LOPEZ DO 717.7 CHONDROMALACIA OF [place] 05/17/2010 ZENA UMANZOR APRN 717.7 CHONDROMALACIA OF [place] 05/17/2010 ZENA UMANZOR APRN 717.7 CHONDROMALACIA OF [place] 05/17/2010 YAMILETH LAURENT MD 717.7 CHONDROMALACIA OF [place] 05/17/2010 ZNEA UMANZOR APRN 717.7 CHONDROMALACIA OF [place] 05/17/2010 ZENA UMANZOR APRN 717.7 CHONDROMALACIA OF [place] 05/17/2010 ZENA UMANZOR APRN 717.7 CHONDROMALACIA OF [place] 05/17/2010 ZENA UMANZOR APRN 717.7 CHONDROMALACIA OF [place] 05/17/2010 ZENA UMANZOR APRN 717.7 CHONDROMALACIA OF [place] 05/17/2010 ZENA UMANZOR APRN 717.7 CHONDROMALACIA OF [place] 05/17/2010 JESSE LOPEZ DO 717.7 CHONDROMALACIA OF [place] 05/17/2010 ZENA UMANZOR APRN 717.7 CHONDROMALACIA OF [place] 05/17/2010 ZENA UMANZOR APRN 717.7 CHONDROMALACIA OF [place] 05/17/2010 JESSE LOPEZ DO K 717.7 CHONDROMALACIA OF [place] 05/17/2010 JESSE LOPEZ DO K 717.7 CHONDROMALACIA OF [place] 05/17/2010 ZENA UMANZOR APRN 717.7 CHONDROMALACIA OF [place] 05/17/2010 KENDALL OTTO MD 717.7 CHONDROMALACIA OF [place] 06/12/2010 KENDALL OTTO MD 278.00 OBESITY, UNSPECIFIED 06/12/2010 JESSE LOPEZ DO K 278.00 OBESITY, UNSPECIFIED 06/12/2010 278.00 OBESITY, UNSPECIFIED 06/12/2010 278.00 OBESITY, UNSPECIFIED 06/12/2010 278.00 OBESITY, UNSPECIFIED 06/12/2010 278.00 OBESITY, UNSPECIFIED 06/12/2010 278.00 OBESITY, UNSPECIFIED 06/12/2010 278.00 OBESITY, UNSPECIFIED 06/12/2010 278.00 OBESITY, UNSPECIFIED 06/12/2010 278.00 OBESITY, UNSPECIFIED 06/12/2010 278.00 OBESITY, UNSPECIFIED 06/12/2010 278.00 OBESITY, UNSPECIFIED 06/12/2010 278.00 OBESITY, UNSPECIFIED 06/12/2010 278.00 OBESITY, UNSPECIFIED 06/12/2010 278.00 OBESITY, UNSPECIFIED 06/12/2010 278.00 OBESITY, UNSPECIFIED 06/12/2010 278.00 OBESITY, UNSPECIFIED 06/12/2010 278.00 OBESITY, UNSPECIFIED 06/12/2010 278.00 OBESITY, UNSPECIFIED 06/12/2010 278.00 OBESITY, UNSPECIFIED 06/12/2010 278.00 OBESITY, UNSPECIFIED 06/12/2010 278.00 OBESITY, UNSPECIFIED 06/12/2010 278.00 OBESITY, UNSPECIFIED 06/12/2010 278.00 OBESITY, UNSPECIFIED 06/12/2010 LOPEZ DO, JESSE K 278.00 OBESITY, UNSPECIFIED 06/12/2010 ABHISHEK TADEO APRN 278.00 OBESITY, UNSPECIFIED 06/12/2010 JUDY DAVIS, SARAH Law 278.00 OBESITY, UNSPECIFIED 06/12/2010 JUDY DAVIS, SARAH M 278.00 OBESITY, UNSPECIFIED 06/12/2010 JUDY DAVIS, SARAH M 278.00 OBESITY, UNSPECIFIED 06/12/2010 JUDY DAVIS, SARAH M 278.00 OBESITY, UNSPECIFIED 06/12/2010 JUDY DAVIS, SARAH M 278.00 OBESITY, UNSPECIFIED 06/12/2010 YAMILETH LAURENT MD 278.00 OBESITY, UNSPECIFIED 06/12/2010 YAMILETH LAURENT MD 278.00 OBESITY, UNSPECIFIED 06/12/2010 LOPEZ DO, JESSE K 278.00 OBESITY, UNSPECIFIED 06/12/2010 LOPEZ DO, JESSE K 278.00 OBESITY, UNSPECIFIED 06/12/2010 LOPEZ DO, JESSE K 278.00 OBESITY, UNSPECIFIED 06/12/2010 LOPEZ DO, JESSE K 278.00 OBESITY, UNSPECIFIED 06/12/2010 YAMILETH LAURENT MD 278.00 OBESITY, UNSPECIFIED 06/12/2010 YAMILETH LAURENT MD 278.00 OBESITY, UNSPECIFIED 06/12/2010 LOPEZ DO, JESSE K 278.00 OBESITY, UNSPECIFIED 06/12/2010 YAMILETH LAURENT MD 278.00 OBESITY, UNSPECIFIED 06/12/2010 ZENA UMANZOR APRN 278.00 OBESITY, UNSPECIFIED 06/12/2010 ZENA UMANZOR APRN 278.00 OBESITY, UNSPECIFIED 06/12/2010 NOÉ SALES PRODUCER, ZENA T 278.00 OBESITY, UNSPECIFIED 06/12/2010 NOÉ SALES PRODUCER, ZENA T 278.00 OBESITY, UNSPECIFIED 06/12/2010 LOPEZ DO, JESSE K 278.00 OBESITY, UNSPECIFIED 06/12/2010 NOÉ SALES PRODUCER, ZENA T 278.00 OBESITY, UNSPECIFIED 06/12/2010 NOÉ SALES PRODUCER, ZENA T 278.00 OBESITY, UNSPECIFIED 06/12/2010 NOÉ SALES PRODUCER, ZENA T 278.00 OBESITY, UNSPECIFIED 06/12/2010 NOÉ SALES PRODUCER, ZENA T 278.00 OBESITY, UNSPECIFIED 06/12/2010 NOÉ SALES PRODUCER, ZENA T 278.00 OBESITY, UNSPECIFIED 06/12/2010 LOPEZ DO, JESSE K 278.00 OBESITY, UNSPECIFIED 06/12/2010 LOPEZ DO, JESSE K 278.00 OBESITY, UNSPECIFIED 06/12/2010 NOÉ SALES PRODUCER, ZENA T 278.00 OBESITY, UNSPECIFIED 06/12/2010 NOÉ SALES PRODUCER, ZENA T 278.00 OBESITY, UNSPECIFIED 06/12/2010 YAMILETH LAURENT MD 278.00 OBESITY, UNSPECIFIED 06/12/2010 NOÉ SALES PRODUCER, ZENA T 278.00 OBESITY, UNSPECIFIED 06/12/2010 NOÉ SALES PRODUCER, ZENA T 278.00 OBESITY, UNSPECIFIED 06/12/2010 NOÉ SALES PRODUCER, ZENA T 278.00 OBESITY, UNSPECIFIED 06/12/2010 NOÉ SALES PRODUCER, ZENA T 278.00 OBESITY, UNSPECIFIED 06/12/2010 NOÉ SALES PRODUCER, ZENA T 278.00 OBESITY, UNSPECIFIED 06/12/2010 NOÉ SALES PRODUCER, ZENA T 278.00 OBESITY, UNSPECIFIED 06/12/2010 LOPEZ DO, JESSE K 278.00 OBESITY, UNSPECIFIED 06/12/2010 NOÉ SALES PRODUCER, ZENA T 278.00 OBESITY, UNSPECIFIED 06/12/2010 NOÉ SALES PRODUCER, ZENA T 278.00 OBESITY, UNSPECIFIED 06/12/2010 LOPEZ DO, JESSE K 278.00 OBESITY, UNSPECIFIED 06/12/2010 LOPEZ DO, JESSE K 278.00 OBESITY, UNSPECIFIED 06/12/2010 NOÉ SALES PRODUCER, ZENA T 278.00 OBESITY, UNSPECIFIED 06/12/2010 KENDALL OTTO MD 278.00 OBESITY, UNSPECIFIED 06/18/2010 KENDALL OTTO MD 288.60 Leukocytosis, Unspecified 06/18/2010 LOPEZ DO, JESSE K 288.60 Leukocytosis, Unspecified 06/18/2010 288.60 Leukocytosis , Unspecified 06/18/2010 288.60 Leukocytosis , Unspecified 06/18/2010 288.60 Leukocytosis , Unspecified 06/18/2010 288.60 Leukocytosis , Unspecified 06/18/2010 288.60 Leukocytosis , Unspecified 06/18/2010 288.60 Leukocytosis , Unspecified 06/18/2010 288.60 Leukocytosis , Unspecified 06/18/2010 288.60 Leukocytosis , Unspecified 06/18/2010 288.60 Leukocytosis , Unspecified 06/18/2010 288.60 Leukocytosis , Unspecified 06/18/2010 288.60 Leukocytosis , Unspecified 06/18/2010 288.60 Leukocytosis , Unspecified 06/18/2010 288.60 Leukocytosis , Unspecified 06/18/2010 288.60 Leukocytosis , Unspecified 06/18/2010 288.60 Leukocytosis , Unspecified 06/18/2010 288.60 Leukocytosis , Unspecified 06/18/2010 288.60 Leukocytosis , Unspecified 06/18/2010 288.60 Leukocytosis , Unspecified 06/18/2010 288.60 Leukocytosis , Unspecified 06/18/2010 288.60 Leukocytosis , Unspecified 06/18/2010 288.60 Leukocytosis , Unspecified 06/18/2010 288.60 Leukocytosis , Unspecified 06/18/2010 JESSE LOPEZ DO 288.60 Leukocytosis, Unspecified 06/18/2010 ABHISHEK TADEO APRN 288.60 Leukocytosis, Unspecified 06/18/2010 SARAH KIM MD 288.60 Leukocytosis, Unspecified 06/18/2010 SARAH KIM MD 288.60 Leukocytosis, Unspecified 06/18/2010 SARAH KIM MD 288.60 Leukocytosis, Unspecified 06/18/2010 SARAH KIM MD 288.60 Leukocytosis, Unspecified 06/18/2010 SARAH KIM MD 288.60 Leukocytosis, Unspecified 06/18/2010 YAMILETH LAURENT MD 288.60 Leukocytosis, Unspecified 06/18/2010 YAMILETH LAURENT MD 288.60 Leukocytosis, Unspecified 06/18/2010 JESSE LOPEZ DO 288.60 Leukocytosis, Unspecified 06/18/2010 JESSE LOPEZ DO 288.60 Leukocytosis, Unspecified 06/18/2010 LOPEZ DO, JESSE K 288.60 Leukocytosis, Unspecified 06/18/2010 LOPEZ DO, JESSE K 288.60 Leukocytosis, Unspecified 06/18/2010 YAMILETH LAURENT MD 288.60 Leukocytosis, Unspecified 06/18/2010 YAMILETH LAURENT MD 288.60 Leukocytosis, Unspecified 06/18/2010 LOPEZ DO, JESSE K 288.60 Leukocytosis, Unspecified 06/18/2010 YAMILETH LAURENT MD 288.60 Leukocytosis, Unspecified 06/18/2010 NOÉ SALES PRODUCER, ZENA T 288.60 Leukocytosis, Unspecified 06/18/2010 NOÉ SALES PRODUCER, ZENA T 288.60 Leukocytosis, Unspecified 06/18/2010 NOÉ SALES PRODUCER, ZENA T 288.60 Leukocytosis, Unspecified 06/18/2010 NOÉ SALES PRODUCER, ZENA T 288.60 Leukocytosis, Unspecified 06/18/2010 LOPEZ DO, JESSE K 288.60 Leukocytosis, Unspecified 06/18/2010 NOÉ WHITEN, ZENA T 288.60 Leukocytosis, Unspecified 06/18/2010 NOÉ SALES PRODUCER, ZENA T 288.60 Leukocytosis, Unspecified 06/18/2010 NOÉ SALES PRODUCER, ZNEA T 288.60 Leukocytosis, Unspecified 06/18/2010 NOÉ SALES PRODUCER, ZENA T 288.60 Leukocytosis, Unspecified 06/18/2010 NOÉ SALES PRODUCER, ZENA T 288.60 Leukocytosis, Unspecified 06/18/2010 LOPEZ DO, JESSE K 288.60 Leukocytosis, Unspecified 06/18/2010 LOPEZ DO, JESSE K 288.60 Leukocytosis, Unspecified 06/18/2010 NOÉ SALES PRODUCER, ZENA T 288.60 Leukocytosis, Unspecified 06/18/2010 NOÉ SALES PRODUCER, ZENA T 288.60 Leukocytosis, Unspecified 06/18/2010 YAMILETH LAURENT MD 288.60 Leukocytosis, Unspecified 06/18/2010 NOÉ SALES PRODUCER, ZENA T 288.60 Leukocytosis, Unspecified 06/18/2010 NOÉ SALES PRODUCER, ZENA T 288.60 Leukocytosis, Unspecified 06/18/2010 NOÉ SALES PRODUCER, ZENA T 288.60 Leukocytosis, Unspecified 06/18/2010 NOÉ SALES PRODUCER, ZENA T 288.60 Leukocytosis, Unspecified 06/18/2010 NOÉ WHITEN, ZENA T 288.60 Leukocytosis, Unspecified 06/18/2010 ZENA UMANZOR APRN 288.60 Leukocytosis, Unspecified 06/18/2010 JESSE LOPEZ DO K 288.60 Leukocytosis, Unspecified 06/18/2010 ZENA UMANZOR APRN 288.60 Leukocytosis, Unspecified 06/18/2010 ZENA UMANZOR APRN T 288.60 Leukocytosis, Unspecified 06/18/2010 JESSE LOPEZ DO K 288.60 Leukocytosis, Unspecified 06/18/2010 JESSE LOPEZ DO K 288.60 Leukocytosis, Unspecified 06/18/2010 ZENA UMANZOR APRN 288.60 Leukocytosis, Unspecified 06/18/2010 KENDALL OTTO MD 288.60 Leukocytosis, Unspecified 09/03/2010 Ot 717.7 11/23/2010 KENDALL OTTO MD V68.1 ISSUE OF REPEAT PRESCRIPTIONS 11/23/2010 JESSE LOPEZ DO V68.1 ISSUE OF REPEAT PRESCRIPTIONS 11/23/2010 V68.1 ISSUE OF REPEAT PRESCRIPTIONS 11/23/2010 V68.1 ISSUE OF REPEAT PRESCRIPTIONS 11/23/2010 V68.1 ISSUE OF REPEAT PRESCRIPTIONS 11/23/2010 V68.1 ISSUE OF REPEAT PRESCRIPTIONS 11/23/2010 V68.1 ISSUE OF REPEAT PRESCRIPTIONS 11/23/2010 V68.1 ISSUE OF REPEAT PRESCRIPTIONS 11/23/2010 V68.1 ISSUE OF REPEAT PRESCRIPTIONS 11/23/2010 V68.1 ISSUE OF REPEAT PRESCRIPTIONS 11/23/2010 V68.1 ISSUE OF REPEAT PRESCRIPTIONS 11/23/2010 V68.1 ISSUE OF REPEAT PRESCRIPTIONS 11/23/2010 V68.1 ISSUE OF REPEAT PRESCRIPTIONS 11/23/2010 V68.1 ISSUE OF REPEAT PRESCRIPTIONS 11/23/2010 V68.1 ISSUE OF REPEAT PRESCRIPTIONS 11/23/2010 V68.1 ISSUE OF REPEAT PRESCRIPTIONS 11/23/2010 V68.1 ISSUE OF REPEAT PRESCRIPTIONS 11/23/2010 V68.1 ISSUE OF REPEAT PRESCRIPTIONS 11/23/2010 V68.1 ISSUE OF REPEAT PRESCRIPTIONS 11/23/2010 V68.1 ISSUE OF REPEAT PRESCRIPTIONS 11/23/2010 V68.1 ISSUE OF REPEAT PRESCRIPTIONS 11/23/2010 V68.1 ISSUE OF REPEAT PRESCRIPTIONS 11/23/2010 V68.1 ISSUE OF REPEAT PRESCRIPTIONS 11/23/2010 V68.1 ISSUE OF REPEAT PRESCRIPTIONS 11/23/2010 JESSE LOPEZ DO V68.1 ISSUE OF REPEAT PRESCRIPTIONS 11/23/2010 ABHISHEK TADEO APRN V68.1 ISSUE OF REPEAT PRESCRIPTIONS 11/23/2010 SARAH KIM MD V68.1 ISSUE OF REPEAT PRESCRIPTIONS 11/23/2010 SARAH KIM MD V68.1 ISSUE OF REPEAT PRESCRIPTIONS 11/23/2010 SARAH KIM MD V68.1 ISSUE OF REPEAT PRESCRIPTIONS 11/23/2010 SARAH KIM MD V68.1 ISSUE OF REPEAT PRESCRIPTIONS 11/23/2010 SARAH KIM MD V68.1 ISSUE OF REPEAT PRESCRIPTIONS 11/23/2010 YAMILETH LAURENT MD V68.1 ISSUE OF REPEAT PRESCRIPTIONS 11/23/2010 YAMILETH LAURENT MD V68.1 ISSUE OF REPEAT PRESCRIPTIONS 11/23/2010 JESSE LOPEZ DO V68.1 ISSUE OF REPEAT PRESCRIPTIONS 11/23/2010 JESSE LOPEZ DO V68.1 ISSUE OF REPEAT PRESCRIPTIONS 11/23/2010 JESSE LOPEZ DO V68.1 ISSUE OF REPEAT PRESCRIPTIONS 11/23/2010 JESSE LOPEZ DO V68.1 ISSUE OF REPEAT PRESCRIPTIONS 11/23/2010 YAMILETH LAURENT MD V68.1 ISSUE OF REPEAT PRESCRIPTIONS 11/23/2010 YAMILETH LAURENT MD V68.1 ISSUE OF REPEAT PRESCRIPTIONS 11/23/2010 JESSE LOPEZ DO V68.1 ISSUE OF REPEAT PRESCRIPTIONS 11/23/2010 YAMILETH LAURENT MD V68.1 ISSUE OF REPEAT PRESCRIPTIONS 11/23/2010 ZENA UMANZOR APRN V68.1 ISSUE OF REPEAT PRESCRIPTIONS 11/23/2010 ZENA UMANZOR APRN V68.1 ISSUE OF REPEAT PRESCRIPTIONS 11/23/2010 ZENA UMANZOR APRN V68.1 ISSUE OF REPEAT PRESCRIPTIONS 11/23/2010 ZENA UMANZOR APRN V68.1 ISSUE OF REPEAT PRESCRIPTIONS 11/23/2010 JESSE LOPEZ DO V68.1 ISSUE OF REPEAT PRESCRIPTIONS 11/23/2010 ZENA UMANZOR APRN V68.1 ISSUE OF REPEAT PRESCRIPTIONS 11/23/2010 ZENA UMANZOR APRN V68.1 ISSUE OF REPEAT PRESCRIPTIONS 11/23/2010 ZENA UMANZOR APRN V68.1 ISSUE OF REPEAT PRESCRIPTIONS 11/23/2010 ZENA UMANZOR APRN V68.1 ISSUE OF REPEAT PRESCRIPTIONS 11/23/2010 ZENA UMANZOR APRN V68.1 ISSUE OF REPEAT PRESCRIPTIONS 11/23/2010 JESSE LOPEZ DO V68.1 ISSUE OF REPEAT PRESCRIPTIONS 11/23/2010 JESSE LOPEZ DO V68.1 ISSUE OF REPEAT PRESCRIPTIONS 11/23/2010 ZENA UMANZOR APRN V68.1 ISSUE OF REPEAT PRESCRIPTIONS 11/23/2010 ZENA UMANZOR APRN V68.1 ISSUE OF REPEAT PRESCRIPTIONS 11/23/2010 YAMILETH LAURENT MD V68.1 ISSUE OF REPEAT PRESCRIPTIONS 11/23/2010 ZENA UMANZOR APRN V68.1 ISSUE OF REPEAT PRESCRIPTIONS 11/23/2010 ZENA UMANZOR APRN V68.1 ISSUE OF REPEAT PRESCRIPTIONS 11/23/2010 ZENA UMANZOR APRN V68.1 ISSUE OF REPEAT PRESCRIPTIONS 11/23/2010 ZENA UMANZOR APRN V68.1 ISSUE OF REPEAT PRESCRIPTIONS 11/23/2010 ZENA UMANZOR APRN V68.1 ISSUE OF REPEAT PRESCRIPTIONS 11/23/2010 ZENA UMANZOR APRN V68.1 ISSUE OF REPEAT PRESCRIPTIONS 11/23/2010 JESSE LOPEZ DO V68.1 ISSUE OF REPEAT PRESCRIPTIONS 11/23/2010 ZENA UMANZOR APRN V68.1 ISSUE OF REPEAT PRESCRIPTIONS 11/23/2010 ZENA UMANZOR APRN V68.1 ISSUE OF REPEAT PRESCRIPTIONS 11/23/2010 JESSE LOPEZ DO V68.1 ISSUE OF REPEAT PRESCRIPTIONS 11/23/2010 JESSE LOPEZ DO V68.1 ISSUE OF REPEAT PRESCRIPTIONS 11/23/2010 ZENA UMANZOR APRN V68.1 ISSUE OF REPEAT PRESCRIPTIONS 11/23/2010 KENDALL OTTO MD V68.1 ISSUE OF REPEAT PRESCRIPTIONS 01/23/2011 KENDALL OTTO MD 787.91 Diarrhea 01/23/2011 KENDALL OTTO MD 789.00 Abdominal Pain Unspecified Site 01/23/2011 JESSE LOPEZ DO 787.91 Diarrhea 01/23/2011 JESSE LOPEZ DO 789.00 Abdominal Pain Unspecified Site 01/23/2011 787.91 Diarrhea 01/23/2011 789.00 Abdominal Pain Unspecified Site 01/23/2011 787.91 Diarrhea 01/23/2011 789.00 Abdominal Pain Unspecified Site 01/23/2011 787.91 Diarrhea 01/23/2011 789.00 Abdominal Pain Unspecified Site 01/23/2011 787.91 Diarrhea 01/23/2011 789.00 Abdominal Pain Unspecified Site 01/23/2011 787.91 Diarrhea 01/23/2011 789.00 Abdominal Pain Unspecified Site 01/23/2011 787.91 Diarrhea 01/23/2011 789.00 Abdominal Pain Unspecified Site 01/23/2011 787.91 Diarrhea 01/23/2011 789.00 Abdominal Pain Unspecified Site 01/23/2011 787.91 Diarrhea 01/23/2011 789.00 Abdominal Pain Unspecified Site 01/23/2011 787.91 Diarrhea 01/23/2011 789.00 Abdominal Pain Unspecified Site 01/23/2011 787.91 Diarrhea 01/23/2011 789.00 Abdominal Pain Unspecified Site 01/23/2011 787.91 Diarrhea 01/23/2011 789.00 Abdominal Pain Unspecified Site 01/23/2011 787.91 Diarrhea 01/23/2011 789.00 Abdominal Pain Unspecified Site 01/23/2011 787.91 Diarrhea 01/23/2011 789.00 Abdominal Pain Unspecified Site 01/23/2011 787.91 Diarrhea 01/23/2011 789.00 Abdominal Pain Unspecified Site 01/23/2011 787.91 Diarrhea 01/23/2011 789.00 Abdominal Pain Unspecified Site 01/23/2011 787.91 Diarrhea 01/23/2011 789.00 Abdominal Pain Unspecified Site 01/23/2011 787.91 Diarrhea 01/23/2011 789.00 Abdominal Pain Unspecified Site 01/23/2011 787.91 Diarrhea 01/23/2011 789.00 Abdominal Pain Unspecified Site 01/23/2011 787.91 Diarrhea 01/23/2011 789.00 Abdominal Pain Unspecified Site 01/23/2011 787.91 Diarrhea 01/23/2011 789.00 Abdominal Pain Unspecified Site 01/23/2011 787.91 Diarrhea 01/23/2011 789.00 Abdominal Pain Unspecified Site 01/23/2011 787.91 Diarrhea 01/23/2011 789.00 Abdominal Pain Unspecified Site 01/23/2011 JESSE LOPEZ DO 787.91 Diarrhea 01/23/2011 JOHN DOJESSE 789.00 Abdominal Pain Unspecified Site 01/23/2011 ABHISHEK TADEO APRN 787.91 Diarrhea 01/23/2011 CARLYLE NETTLES ABHISHEK R 789.00 Abdominal Pain Unspecified Site 01/23/2011 JUDY DAVIS, SARAH Law 787.91 Diarrhea 01/23/2011 JUDY DAVIS, SARAH Law 789.00 Abdominal Pain Unspecified Site 01/23/2011 JUDY DAVIS, SARAH Law 787.91 Diarrhea 01/23/2011 JUDY DAVIS, SARAH Law 789.00 Abdominal Pain Unspecified Site 01/23/2011 JUDY DAVIS, SARAH Law 787.91 Diarrhea 01/23/2011 JUDY DAVIS, SARAH Law 789.00 Abdominal Pain Unspecified Site 01/23/2011 JUDY DAVIS, SARAH Law 787.91 Diarrhea 01/23/2011 JUDY DAVIS, SARAH Law 789.00 Abdominal Pain Unspecified Site 01/23/2011 SARAH KIM MD 787.91 Diarrhea 01/23/2011 SARAH KIM MD 789.00 Abdominal Pain Unspecified Site 01/23/2011 YAMILETH LAURENT MD7.91 Diarrhea 01/23/2011 YAMILETH LAURENT MD 789.00 Abdominal Pain Unspecified Site 01/23/2011 YAMILETH LAURENT MD7.91 Diarrhea 01/23/2011 YAMILETH LAURENT MD9.00 Abdominal Pain Unspecified Site 01/23/2011 LOPEZ DO, JESSE K 787.91 Diarrhea 01/23/2011 LOPEZ DO, JESSE K 789.00 Abdominal Pain Unspecified Site 01/23/2011 LOPEZ DO, JESSE K 787.91 Diarrhea 01/23/2011 LOPEZ DO, JESSE K 789.00 Abdominal Pain Unspecified Site 01/23/2011 LOPEZ DO, JESSE K 787.91 Diarrhea 01/23/2011 LOPEZ DO, JESSE K 789.00 Abdominal Pain Unspecified Site 01/23/2011 LOPEZ DO, JESSE K 787.91 Diarrhea 01/23/2011 LOPEZ DO, JESSE K 789.00 Abdominal Pain Unspecified Site 01/23/2011 YAMILETH LAURENT MD7.91 Diarrhea 01/23/2011 YAMILETH LAURENT MD 789.00 Abdominal Pain Unspecified Site 01/23/2011 YAMILETH LAURENT MD.91 Diarrhea 01/23/2011 HUERTER MD, YAMILETH 789.00 Abdominal Pain Unspecified Site 01/23/2011 LOPEZ DO, JESSE K 787.91 Diarrhea 01/23/2011 LOPEZ DO, JESSE K 789.00 Abdominal Pain Unspecified Site 01/23/2011 YAMILETH LAURENT MD 787.91 Diarrhea 01/23/2011 YAMILETH LAURENT MD 789.00 Abdominal Pain Unspecified Site 01/23/2011 NOÉ SALES PRODUCERZENA T 787.91 Diarrhea 01/23/2011 NOÉ SALES PRODUCERZENA T 789.00 Abdominal Pain Unspecified Site 01/23/2011 NOÉ SALES PRODUCERZENA T 787.91 Diarrhea 01/23/2011 NOÉ SALES PRODUCERZENA T 789.00 Abdominal Pain Unspecified Site 01/23/2011 NOÉ WHITENZENA T 787.91 Diarrhea 01/23/2011 NOÉ WHITENZENA T 789.00 Abdominal Pain Unspecified Site 01/23/2011 NOÉ WHITENZENA T 787.91 Diarrhea 01/23/2011 ZENA UMANZOR APRN 789.00 Abdominal Pain Unspecified Site 01/23/2011 LOPEZ DO, JESSE K 787.91 Diarrhea 01/23/2011 LOPEZ DO, JESSE K 789.00 Abdominal Pain Unspecified Site 01/23/2011 NOÉ SALES PRODUCERZENA T 787.91 Diarrhea 01/23/2011 NOÉ SALES PRODUCERZENA T 789.00 Abdominal Pain Unspecified Site 01/23/2011 NOÉ SALES PRODUCERZENA T 787.91 Diarrhea 01/23/2011 NOÉ SALES PRODUCERZENA T 789.00 Abdominal Pain Unspecified Site 01/23/2011 ZENA UMANZOR APRN T 787.91 Diarrhea 01/23/2011 NOÉ SALES PRODUCERZENA T 789.00 Abdominal Pain Unspecified Site 01/23/2011 NOÉ SALES PRODUCERZENA T 787.91 Diarrhea 01/23/2011 NOÉ SALES PRODUCERZENA T 789.00 Abdominal Pain Unspecified Site 01/23/2011 NOÉ WHITENZENA T 787.91 Diarrhea 01/23/2011 NOÉ WHITENZENA T 789.00 Abdominal Pain Unspecified Site 01/23/2011 LOPEZ DO, JESSE K 787.91 Diarrhea 01/23/2011 LOPEZ DO, JESSE K 789.00 Abdominal Pain Unspecified Site 01/23/2011 LOPEZ DO, JESSE K 787.91 Diarrhea 01/23/2011 LOPEZ DO, JESSE K 789.00 Abdominal Pain Unspecified Site 01/23/2011 NOÉ SALES PRODUCER, ZENA T 787.91 Diarrhea 01/23/2011 NOÉ SALES PRODUCER, ZENA T 789.00 Abdominal Pain Unspecified Site 01/23/2011 NOÉ SALES PRODUCER, ZENA T 787.91 Diarrhea 01/23/2011 NOÉ SALES PRODUCER, ZENA T 789.00 Abdominal Pain Unspecified Site 01/23/2011 YAMILETH LAURENT MD 787.91 Diarrhea 01/23/2011 YAMILETH LAURENT MD 789.00 Abdominal Pain Unspecified Site 01/23/2011 NOÉ SALES PRODUCER, ZENA T 787.91 Diarrhea 01/23/2011 NOÉ SALES PRODUCER, ZENA T 789.00 Abdominal Pain Unspecified Site 01/23/2011 NOÉ SALES PRODUCER, ZENA T 787.91 Diarrhea 01/23/2011 NOÉ SALES PRODUCER, ZENA T 789.00 Abdominal Pain Unspecified Site 01/23/2011 NOÉ SALES PRODUCERZENA T 787.91 Diarrhea 01/23/2011 NOÉ SALES PRODUCERZENA T 789.00 Abdominal Pain Unspecified Site 01/23/2011 NOÉ SALES PRODUCER, ZENA T 787.91 Diarrhea 01/23/2011 NOÉ SALES PRODUCER, ZENA T 789.00 Abdominal Pain Unspecified Site 01/23/2011 NOÉ SALES PRODUCER, ZENA T 787.91 Diarrhea 01/23/2011 NOÉ SALES PRODUCER, ZENA T 789.00 Abdominal Pain Unspecified Site 01/23/2011 NOÉ SALES PRODUCER, ZENA T 787.91 Diarrhea 01/23/2011 NOÉ SALES PRODUCER, ZENA T 789.00 Abdominal Pain Unspecified Site 01/23/2011 LOPEZ DO, JESSE K 787.91 Diarrhea 01/23/2011 LOPEZ DO, JESSE K 789.00 Abdominal Pain Unspecified Site 01/23/2011 NOÉ SALES PRODUCERZENA T 787.91 Diarrhea 01/23/2011 NOÉ SALES PRODUCER, ZENA T 789.00 Abdominal Pain Unspecified Site 01/23/2011 NOÉ SALES PRODUCER, ZENA T 787.91 Diarrhea 01/23/2011 NOÉ SALES PRODUCER, ZENA T 789.00 Abdominal Pain Unspecified Site 01/23/2011 LOPEZ DO, JESSE K 787.91 Diarrhea 01/23/2011 LOPEZ DO, JESSE K 789.00 Abdominal Pain Unspecified Site 01/23/2011 LOPEZ DO, JESSE K 787.91 Diarrhea 01/23/2011 LOPEZ DO, JESSE K 789.00 Abdominal Pain Unspecified Site 01/23/2011 ZENA UMANZOR APRN 787.91 Diarrhea 01/23/2011 ZENA UMANZOR APRN 789.00 Abdominal Pain Unspecified Site 01/23/2011 KENDALL OTTO MD 787.91 Diarrhea 01/23/2011 KENDALL OTTO MD 789.00 Abdominal Pain Unspecified Site 04/02/2011 KENDALL OTTO MD 780.50 SLEEP DISTURBANCE, UNSPECIFIED 04/02/2011 KENDALL OTTO MD 782.0 Sensory Disturbance Skin 04/02/2011 LOPEZ DO, JESSE K 780.50 SLEEP DISTURBANCE, UNSPECIFIED 04/02/2011 LOPEZ DO, JESSE K 782.0 Sensory Disturbance Skin 04/02/2011 780.50 SLEEP DISTURBANCE, UNSPECIFIED 04/02/2011 782.0 Sensory Disturbance Skin 04/02/2011 780.50 SLEEP DISTURBANCE, UNSPECIFIED 04/02/2011 782.0 Sensory Disturbance Skin 04/02/2011 780.50 SLEEP DISTURBANCE, UNSPECIFIED 04/02/2011 782.0 Sensory Disturbance Skin 04/02/2011 780.50 SLEEP DISTURBANCE, UNSPECIFIED 04/02/2011 782.0 Sensory Disturbance Skin 04/02/2011 780.50 SLEEP DISTURBANCE, UNSPECIFIED 04/02/2011 782.0 Sensory Disturbance Skin 04/02/2011 780.50 SLEEP DISTURBANCE, UNSPECIFIED 04/02/2011 782.0 Sensory Disturbance Skin 04/02/2011 780.50 SLEEP DISTURBANCE, UNSPECIFIED 04/02/2011 782.0 Sensory Disturbance Skin 04/02/2011 780.50 SLEEP DISTURBANCE, UNSPECIFIED 04/02/2011 782.0 Sensory Disturbance Skin 04/02/2011 780.50 SLEEP DISTURBANCE, UNSPECIFIED 04/02/2011 782.0 Sensory Disturbance Skin 04/02/2011 780.50 SLEEP DISTURBANCE, UNSPECIFIED 04/02/2011 782.0 Sensory Disturbance Skin 04/02/2011 780.50 SLEEP DISTURBANCE, UNSPECIFIED 04/02/2011 782.0 Sensory Disturbance Skin 04/02/2011 780.50 SLEEP DISTURBANCE, UNSPECIFIED 04/02/2011 782.0 Sensory Disturbance Skin 04/02/2011 780.50 SLEEP DISTURBANCE, UNSPECIFIED 04/02/2011 782.0 Sensory Disturbance Skin 04/02/2011 780.50 SLEEP DISTURBANCE, UNSPECIFIED 04/02/2011 782.0 Sensory Disturbance Skin 04/02/2011 780.50 SLEEP DISTURBANCE, UNSPECIFIED 04/02/2011 782.0 Sensory Disturbance Skin 04/02/2011 780.50 SLEEP DISTURBANCE, UNSPECIFIED 04/02/2011 782.0 Sensory Disturbance Skin 04/02/2011 780.50 SLEEP DISTURBANCE, UNSPECIFIED 04/02/2011 782.0 Sensory Disturbance Skin 04/02/2011 780.50 SLEEP DISTURBANCE, UNSPECIFIED 04/02/2011 782.0 Sensory Disturbance Skin 04/02/2011 780.50 SLEEP DISTURBANCE, UNSPECIFIED 04/02/2011 782.0 Sensory Disturbance Skin 04/02/2011 780.50 SLEEP DISTURBANCE, UNSPECIFIED 04/02/2011 782.0 Sensory Disturbance Skin 04/02/2011 780.50 SLEEP DISTURBANCE, UNSPECIFIED 04/02/2011 782.0 Sensory Disturbance Skin 04/02/2011 780.50 SLEEP DISTURBANCE, UNSPECIFIED 04/02/2011 782.0 Sensory Disturbance Skin 04/02/2011 LOPEZ DO, JESSE K 780.50 SLEEP DISTURBANCE, UNSPECIFIED 04/02/2011 LOPEZ DO, JESSE K 782.0 Sensory Disturbance Skin 04/02/2011 CARLYLE NETTLES, ABHISHEK R 780.50 SLEEP DISTURBANCE, UNSPECIFIED 04/02/2011 LEA TADEO APRNRICIA R 782.0 Sensory Disturbance Skin 04/02/2011 SARAH KIM MD 780.50 SLEEP DISTURBANCE, UNSPECIFIED 04/02/2011 SARAH KIM MD 782.0 Sensory Disturbance Skin 04/02/2011 SARAH KIM MD 780.50 SLEEP DISTURBANCE, UNSPECIFIED 04/02/2011 SARAH KIM MD M 782.0 Sensory Disturbance Skin 04/02/2011 SARAH KIM MD 780.50 SLEEP DISTURBANCE, UNSPECIFIED 04/02/2011 SARAH KIM MD 782.0 Sensory Disturbance Skin 04/02/2011 SARAH KIM MD 780.50 SLEEP DISTURBANCE, UNSPECIFIED 04/02/2011 SARAH KIM MD 782.0 Sensory Disturbance Skin 04/02/2011 SARAH KIM MD 780.50 SLEEP DISTURBANCE, UNSPECIFIED 04/02/2011 SARAH KIM MD 782.0 Sensory Disturbance Skin 04/02/2011 YAMILETH LAURENT MD 780.50 SLEEP DISTURBANCE, UNSPECIFIED 04/02/2011 YAMILETH LAURENT MD 782.0 Sensory Disturbance Skin 04/02/2011 YAMILETH LAURENT MD 780.50 SLEEP DISTURBANCE, UNSPECIFIED 04/02/2011 YAMILETH LAURENT MD 782.0 Sensory Disturbance Skin 04/02/2011 LOPEZ DO, JESSE K 780.50 SLEEP DISTURBANCE, UNSPECIFIED 04/02/2011 LOPEZ DO, JESSE K 782.0 Sensory Disturbance Skin 04/02/2011 LOPEZ DO, JESSE K 780.50 SLEEP DISTURBANCE, UNSPECIFIED 04/02/2011 LOPEZ DO, JESSE K 782.0 Sensory Disturbance Skin 04/02/2011 LOPEZ DO, JESSE K 780.50 SLEEP DISTURBANCE, UNSPECIFIED 04/02/2011 LOPEZ DO, JESSE K 782.0 Sensory Disturbance Skin 04/02/2011 LOPEZ DO, JESSE K 780.50 SLEEP DISTURBANCE, UNSPECIFIED 04/02/2011 LOPEZ DO, JESSE K 782.0 Sensory Disturbance Skin 04/02/2011 YAMILETH LAURENT MD 780.50 SLEEP DISTURBANCE, UNSPECIFIED 04/02/2011 YAMILETH LAURENT MD 782.0 Sensory Disturbance Skin 04/02/2011 YAMILETH LAURENT MD 780.50 SLEEP DISTURBANCE, UNSPECIFIED 04/02/2011 YAMILETH LAURENT MD 782.0 Sensory Disturbance Skin 04/02/2011 LOPEZ DO, JESSE K 780.50 SLEEP DISTURBANCE, UNSPECIFIED 04/02/2011 LOPEZ DO, JESSE K 782.0 Sensory Disturbance Skin 04/02/2011 YAMILETH LAURENT MD 780.50 SLEEP DISTURBANCE, UNSPECIFIED 04/02/2011 YAMILETH LAURENT MD 782.0 Sensory Disturbance Skin 04/02/2011 ZENA UMANZOR APRN 780.50 SLEEP DISTURBANCE, UNSPECIFIED 04/02/2011 ZENA UMANZOR APRN 782.0 Sensory Disturbance Skin 04/02/2011 ZENA UMANZOR APRN 780.50 SLEEP DISTURBANCE, UNSPECIFIED 04/02/2011 ZENA UMANZOR APRN T 782.0 Sensory Disturbance Skin 04/02/2011 ZENA UMANZOR APRN T 780.50 SLEEP DISTURBANCE, UNSPECIFIED 04/02/2011 ZENA UMANZOR APRN T 782.0 Sensory Disturbance Skin 04/02/2011 ZENA UMANZOR APRN 780.50 SLEEP DISTURBANCE, UNSPECIFIED 04/02/2011 ZENA UMANZOR APRN T 782.0 Sensory Disturbance Skin 04/02/2011 LOPEZ DO, JESSE K 780.50 SLEEP DISTURBANCE, UNSPECIFIED 04/02/2011 LOPEZ DO, JESSE K 782.0 Sensory Disturbance Skin 04/02/2011 ZENA UMANZOR APRN T 780.50 SLEEP DISTURBANCE, UNSPECIFIED 04/02/2011 ZENA UMANZOR APRN T 782.0 Sensory Disturbance Skin 04/02/2011 ZENA UMANZOR APRN T 780.50 SLEEP DISTURBANCE, UNSPECIFIED 04/02/2011 ZENA UMANZOR APRN T 782.0 Sensory Disturbance Skin 04/02/2011 ZENA UMANZOR APRN T 780.50 SLEEP DISTURBANCE, UNSPECIFIED 04/02/2011 ZENA UMANZOR APRN T 782.0 Sensory Disturbance Skin 04/02/2011 ZENA UMANZOR APRN T 780.50 SLEEP DISTURBANCE, UNSPECIFIED 04/02/2011 ZENA UMANZOR APRN T 782.0 Sensory Disturbance Skin 04/02/2011 ZENA UMANZOR APRN T 780.50 SLEEP DISTURBANCE, UNSPECIFIED 04/02/2011 ZENA UMANZOR APRN T 782.0 Sensory Disturbance Skin 04/02/2011 LOPEZ DO, JESSE K 780.50 SLEEP DISTURBANCE, UNSPECIFIED 04/02/2011 LOPEZ DO, JESSE K 782.0 Sensory Disturbance Skin 04/02/2011 LOPEZ DO, JESSE K 780.50 SLEEP DISTURBANCE, UNSPECIFIED 04/02/2011 LOPEZ DO, JESSE K 782.0 Sensory Disturbance Skin 04/02/2011 ZENA UMANZOR APRN T 780.50 SLEEP DISTURBANCE, UNSPECIFIED 04/02/2011 ZENA UMANZOR APRN T 782.0 Sensory Disturbance Skin 04/02/2011 ZENA UMANZOR APRN T 780.50 SLEEP DISTURBANCE, UNSPECIFIED 04/02/2011 ZENA UMANZOR APRN T 782.0 Sensory Disturbance Skin 04/02/2011 YAMILETH LAURENT MD 780.50 SLEEP DISTURBANCE, UNSPECIFIED 04/02/2011 YAMILETH LAURENT MD 782.0 Sensory Disturbance Skin 04/02/2011 ZENA UMANZOR APRN T 780.50 SLEEP DISTURBANCE, UNSPECIFIED 04/02/2011 ZENA UMANZOR APRN T 782.0 Sensory Disturbance Skin 04/02/2011 ZENA UMANZOR APRN T 780.50 SLEEP DISTURBANCE, UNSPECIFIED 04/02/2011 ZENA UMANZOR APRN T 782.0 Sensory Disturbance Skin 04/02/2011 ZENA UMANZOR APRN T 780.50 SLEEP DISTURBANCE, UNSPECIFIED 04/02/2011 ZENA UMANZOR APRN T 782.0 Sensory Disturbance Skin 04/02/2011 ZENA UMANZOR APRN T 780.50 SLEEP DISTURBANCE, UNSPECIFIED 04/02/2011 ZENA UMANZOR APRN T 782.0 Sensory Disturbance Skin 04/02/2011 ZENA UMANZOR APRN T 780.50 SLEEP DISTURBANCE, UNSPECIFIED 04/02/2011 ZENA UMANZOR APRN T 782.0 Sensory Disturbance Skin 04/02/2011 ZENA UMANZOR APRN T 780.50 SLEEP DISTURBANCE, UNSPECIFIED 04/02/2011 ZENA UMANZOR APRN T 782.0 Sensory Disturbance Skin 04/02/2011 LOPEZ DO, JESSE K 780.50 SLEEP DISTURBANCE, UNSPECIFIED 04/02/2011 LOPEZ DO, JESSE K 782.0 Sensory Disturbance Skin 04/02/2011 ZENA UMANZOR APRN T 780.50 SLEEP DISTURBANCE, UNSPECIFIED 04/02/2011 ZENA UMANZOR APRN T 782.0 Sensory Disturbance Skin 04/02/2011 ZENA UMANZOR APRN T 780.50 SLEEP DISTURBANCE, UNSPECIFIED 04/02/2011 ZENA UMANZOR APRN T 782.0 Sensory Disturbance Skin 04/02/2011 LOPEZ DO, JESSE K 780.50 SLEEP DISTURBANCE, UNSPECIFIED 04/02/2011 LOPEZ DO, JESSE K 782.0 Sensory Disturbance Skin 04/02/2011 LOPEZ DO, JESSE K 780.50 SLEEP DISTURBANCE, UNSPECIFIED 04/02/2011 LOPEZ DO, JESSE K 782.0 Sensory Disturbance Skin 04/02/2011 ZENA UMANZOR APRN T 780.50 SLEEP DISTURBANCE, UNSPECIFIED 04/02/2011 ZENA UMANZOR APRN T 782.0 Sensory Disturbance Skin 04/02/2011 KENDALL OTTO MD 780.50 SLEEP DISTURBANCE, UNSPECIFIED 04/02/2011 KENDALL OTTO MD 782.0 Sensory Disturbance Skin 05/16/2011 Ot 466.0 ACUTE BRONCHITIS 05/16/2011 Ot 786.2 COUGH 05/16/2011 Ot V45.89 POSTSURGICAL STATES NEC 05/18/2011 Ot 008.8 VIRAL ENTERITIS NOS 05/18/2011 Ot 276.8 HYPOPOTASSEMIA 05/18/2011 Ot 787.01 NAUSEA WITH VOMITING 05/24/2011 KENDALL OTTO MD 558.9 Gastroenteritis Noninfectious 05/24/2011 JESSE LOPEZ DO 558.9 Gastroenteritis Noninfectious 05/24/2011 558.9 Gastroenteritis Noninfectious 05/24/2011 558.9 Gastroenteritis Noninfectious 05/24/2011 558.9 Gastroenteritis Noninfectious 05/24/2011 558.9 Gastroenteritis Noninfectious 05/24/2011 558.9 Gastroenteritis Noninfectious 05/24/2011 558.9 Gastroenteritis Noninfectious 05/24/2011 558.9 Gastroenteritis Noninfectious 05/24/2011 558.9 Gastroenteritis Noninfectious 05/24/2011 558.9 Gastroenteritis Noninfectious 05/24/2011 558.9 Gastroenteritis Noninfectious 05/24/2011 558.9 Gastroenteritis Noninfectious 05/24/2011 558.9 Gastroenteritis Noninfectious 05/24/2011 558.9 Gastroenteritis Noninfectious 05/24/2011 558.9 Gastroenteritis Noninfectious 05/24/2011 558.9 Gastroenteritis Noninfectious 05/24/2011 558.9 Gastroenteritis Noninfectious 05/24/2011 558.9 Gastroenteritis Noninfectious 05/24/2011 558.9 Gastroenteritis Noninfectious 05/24/2011 558.9 Gastroenteritis Noninfectious 05/24/2011 558.9 Gastroenteritis Noninfectious 05/24/2011 558.9 Gastroenteritis Noninfectious 05/24/2011 558.9 Gastroenteritis Noninfectious 05/24/2011 JESSE LOPEZ DO 558.9 Gastroenteritis Noninfectious 05/24/2011 ABHISHEK TADEO APRN 558.9 Gastroenteritis Noninfectious 05/24/2011 SARAH KIM MD 558.9 Gastroenteritis Noninfectious 05/24/2011 SARAH KIM MD 558.9 Gastroenteritis Noninfectious 05/24/2011 SARAH KIM MD 558.9 Gastroenteritis Noninfectious 05/24/2011 SARAH KIM MD 558.9 Gastroenteritis Noninfectious 05/24/2011 SARAH KIM MD 558.9 Gastroenteritis Noninfectious 05/24/2011 YAMILETH LAURENT MD 558.9 Gastroenteritis Noninfectious 05/24/2011 YAMILETH LAURENT MD 558.9 Gastroenteritis Noninfectious 05/24/2011 JESSE LOPEZ DO 558.9 Gastroenteritis Noninfectious 05/24/2011 LOPEZ DO, JESSE K 558.9 Gastroenteritis Noninfectious 05/24/2011 LOPEZ DO, JESSE K 558.9 Gastroenteritis Noninfectious 05/24/2011 LOPEZ DO, JESSE K 558.9 Gastroenteritis Noninfectious 05/24/2011 YAMILETH LAURENT MD 558.9 Gastroenteritis Noninfectious 05/24/2011 YAMILETH LAURENT MD 558.9 Gastroenteritis Noninfectious 05/24/2011 LOPEZ DO JESSE K 558.9 Gastroenteritis Noninfectious 05/24/2011 YAMILETH LAURENT MD 558.9 Gastroenteritis Noninfectious 05/24/2011 ZENA UMANZOR APRN 558.9 Gastroenteritis Noninfectious 05/24/2011 ZENA UMANZOR APRN 558.9 Gastroenteritis Noninfectious 05/24/2011 ZENA UMANZOR APRN T 558.9 Gastroenteritis Noninfectious 05/24/2011 ZENA UMANZOR APRN T 558.9 Gastroenteritis Noninfectious 05/24/2011 LOPEZ DO, JESSE K 558.9 Gastroenteritis Noninfectious 05/24/2011 ZENA UMANZOR APRN T 558.9 Gastroenteritis Noninfectious 05/24/2011 ZENA UMANZOR APRN T 558.9 Gastroenteritis Noninfectious 05/24/2011 ZENA UMANZOR APRN T 558.9 Gastroenteritis Noninfectious 05/24/2011 ZENA UMANZOR APRN T 558.9 Gastroenteritis Noninfectious 05/24/2011 ZENA UMANZOR APRN T 558.9 Gastroenteritis Noninfectious 05/24/2011 LOPEZ DO, JESSE K 558.9 Gastroenteritis Noninfectious 05/24/2011 LOPEZ DO, JESSE K 558.9 Gastroenteritis Noninfectious 05/24/2011 ZENA UMANZOR APRN T 558.9 Gastroenteritis Noninfectious 05/24/2011 ZENA UMANZOR APRN T 558.9 Gastroenteritis Noninfectious 05/24/2011 YAMILETH LAURENT MD 558.9 Gastroenteritis Noninfectious 05/24/2011 ZENA UMANZOR APRN T 558.9 Gastroenteritis Noninfectious 05/24/2011 ZENA UMANZOR APRN T 558.9 Gastroenteritis Noninfectious 05/24/2011 ZENA UMANZOR APRN T 558.9 Gastroenteritis Noninfectious 05/24/2011 ZENA UMANZOR APRN T 558.9 Gastroenteritis Noninfectious 05/24/2011 ZENA UMANZOR APRN T 558.9 Gastroenteritis Noninfectious 05/24/2011 ZENA UMANZOR APRN T 558.9 Gastroenteritis Noninfectious 05/24/2011 JOHN JESSE CASE 558.9 Gastroenteritis Noninfectious 05/24/2011 ZENA UMANZOR APRN 558.9 Gastroenteritis Noninfectious 05/24/2011 ZENA UMANZOR APRN 558.9 Gastroenteritis Noninfectious 05/24/2011 LOPEZ JESSE CASE K 558.9 Gastroenteritis Noninfectious 05/24/2011 JESSE LOPEZ DO 558.9 Gastroenteritis Noninfectious 05/24/2011 ZENA UMANZOR APRN 558.9 Gastroenteritis Noninfectious 05/24/2011 KENDALL OTTO MD 558.9 Gastroenteritis Noninfectious 05/24/2011 Ot 782.2 LOCAL SUPRFICIAL SWELLNG 05/24/2011 Ot V45.89 POSTSURGICAL STATES NEC 06/20/2011 KENDALL OTTO MD V04.81 FLU DX (3 YRS AND ABOVE, IM) 06/20/2011 JESSE LOPEZ DO V04.81 FLU DX (3 YRS AND ABOVE, IM) 06/20/2011 V04.81 FLU DX (3 YRS AND ABOVE, IM) 06/20/2011 V04.81 FLU DX (3 YRS AND ABOVE, IM) 06/20/2011 V04.81 FLU DX (3 YRS AND ABOVE, IM) 06/20/2011 V04.81 FLU DX (3 YRS AND ABOVE, IM) 06/20/2011 V04.81 FLU DX (3 YRS AND ABOVE, IM) 06/20/2011 V04.81 FLU DX (3 YRS AND ABOVE, IM) 06/20/2011 V04.81 FLU DX (3 YRS AND ABOVE, IM) 06/20/2011 V04.81 FLU DX (3 YRS AND ABOVE, IM) 06/20/2011 V04.81 FLU DX (3 YRS AND ABOVE, IM) 06/20/2011 V04.81 FLU DX (3 YRS AND ABOVE, IM) 06/20/2011 V04.81 FLU DX (3 YRS AND ABOVE, IM) 06/20/2011 V04.81 FLU DX (3 YRS AND ABOVE, IM) 06/20/2011 V04.81 FLU DX (3 YRS AND ABOVE, IM) 06/20/2011 V04.81 FLU DX (3 YRS AND ABOVE, IM) 06/20/2011 V04.81 FLU DX (3 YRS AND ABOVE, IM) 06/20/2011 V04.81 FLU DX (3 YRS AND ABOVE, IM) 06/20/2011 V04.81 FLU DX (3 YRS AND ABOVE, IM) 06/20/2011 V04.81 FLU DX (3 YRS AND ABOVE, IM) 06/20/2011 V04.81 FLU DX (3 YRS AND ABOVE, IM) 06/20/2011 V04.81 FLU DX (3 YRS AND ABOVE, IM) 06/20/2011 V04.81 FLU DX (3 YRS AND ABOVE, IM) 06/20/2011 V04.81 FLU DX (3 YRS AND ABOVE, IM) 06/20/2011 JOHN DO, JESSE K V04.81 FLU DX (3 YRS AND ABOVE, IM) 06/20/2011 ABHISHEK TADEO APRN V04.81 FLU DX (3 YRS AND ABOVE, IM) 06/20/2011 SARAH KIM MD V04.81 FLU DX (3 YRS AND ABOVE, IM) 06/20/2011 SARAH KIM MD V04.81 FLU DX (3 YRS AND ABOVE, IM) 06/20/2011 SARAH KIM MD V04.81 FLU DX (3 YRS AND ABOVE, IM) 06/20/2011 SARAH KIM MD V04.81 FLU DX (3 YRS AND ABOVE, IM) 06/20/2011 SARAH KIM MD V04.81 FLU DX (3 YRS AND ABOVE, IM) 06/20/2011 YAMILETH LAURENT MD V04.81 FLU DX (3 YRS AND ABOVE, IM) 06/20/2011 YAMILETH LAURENT MD V04.81 FLU DX (3 YRS AND ABOVE, IM) 06/20/2011 CLEO LOPEZ DOA K V04.81 FLU DX (3 YRS AND ABOVE, IM) 06/20/2011 OLPEZ CLEO CASEA K V04.81 FLU DX (3 YRS AND ABOVE, IM) 06/20/2011 LOPEZ CLEO CASEA K V04.81 FLU DX (3 YRS AND ABOVE, IM) 06/20/2011 LOPEZ CLEO CASEA K V04.81 FLU DX (3 YRS AND ABOVE, IM) 06/20/2011 HUERTER MD, YAMILETH V04.81 FLU DX (3 YRS AND ABOVE, IM) 06/20/2011 YAMILETH LAURENT MD V04.81 FLU DX (3 YRS AND ABOVE, IM) 06/20/2011 JESSE LOPEZ DO K V04.81 FLU DX (3 YRS AND ABOVE, IM) 06/20/2011 YAMILETH LAURENT MD V04.81 FLU DX (3 YRS AND ABOVE, IM) 06/20/2011 ZENA UMANZOR APRN T V04.81 FLU DX (3 YRS AND ABOVE, IM) 06/20/2011 NOÉ NETTLES ZENA T V04.81 FLU DX (3 YRS AND ABOVE, IM) 06/20/2011 NOÉ NETTLES ZENA T V04.81 FLU DX (3 YRS AND ABOVE, IM) 06/20/2011 NOÉ NETTLES ZENA T V04.81 FLU DX (3 YRS AND ABOVE, IM) 06/20/2011 JESSE LOPEZ DO K V04.81 FLU DX (3 YRS AND ABOVE, IM) 06/20/2011 ZENA UMANZOR APRN T V04.81 FLU DX (3 YRS AND ABOVE, IM) 06/20/2011 ZENA UMANZOR APRN T V04.81 FLU DX (3 YRS AND ABOVE, IM) 06/20/2011 ZENA UMANZOR APRN T V04.81 FLU DX (3 YRS AND ABOVE, IM) 06/20/2011 NOÉ NETTLES ZENA T V04.81 FLU DX (3 YRS AND ABOVE, IM) 06/20/2011 ZENA UMANZOR APRN T V04.81 FLU DX (3 YRS AND ABOVE, IM) 06/20/2011 JESSE LOPEZ DO K V04.81 FLU DX (3 YRS AND ABOVE, IM) 06/20/2011 JESSE LOPEZ DO K V04.81 FLU DX (3 YRS AND ABOVE, IM) 06/20/2011 ZENA UMANZOR APRN T V04.81 FLU DX (3 YRS AND ABOVE, IM) 06/20/2011 ZENA UMANZOR APRN T V04.81 FLU DX (3 YRS AND ABOVE, IM) 06/20/2011 YAMILETH LAURENT MD V04.81 FLU DX (3 YRS AND ABOVE, IM) 06/20/2011 ZENA UMANZOR APRN T V04.81 FLU DX (3 YRS AND ABOVE, IM) 06/20/2011 ZENA UMANZOR APRN V04.81 FLU DX (3 YRS AND ABOVE, IM) 06/20/2011 ZENA UMANZOR APRN T V04.81 FLU DX (3 YRS AND ABOVE, IM) 06/20/2011 ZENA UMANZOR APRN V04.81 FLU DX (3 YRS AND ABOVE, IM) 06/20/2011 ZENA UMANZOR APRN V04.81 FLU DX (3 YRS AND ABOVE, IM) 06/20/2011 ZENA UMANZOR APRN V04.81 FLU DX (3 YRS AND ABOVE, IM) 06/20/2011 JESSE LOPEZ DO V04.81 FLU DX (3 YRS AND ABOVE, IM) 06/20/2011 ZENA UMANZOR APRN V04.81 FLU DX (3 YRS AND ABOVE, IM) 06/20/2011 ZENA UMANZOR APRN V04.81 FLU DX (3 YRS AND ABOVE, IM) 06/20/2011 JESSE LOPEZ DO V04.81 FLU DX (3 YRS AND ABOVE, IM) 06/20/2011 JESSE LOPEZ DO V04.81 FLU DX (3 YRS AND ABOVE, IM) 06/20/2011 ZENA UMANZOR APRN V04.81 FLU DX (3 YRS AND ABOVE, IM) 06/20/2011 KENDALL OTTO MD V04.81 FLU DX (3 YRS AND ABOVE, IM) 10/14/2011 Ot V45.4 ARTHRODESIS STATUS 10/14/2011 Ot V57.1 PHYSICAL THERAPY NEC 02/06/2012 Ot 459.81 VENOUS INSUFFICIENCY NOS 02/06/2012 Ot 682.6 CELLULITIS OF LEG 02/06/2012 Ot 729.81 SWELLING OF LIMB 02/12/2012 KENDALL OTTO MD 719.45 HIP PAIN 02/12/2012 JESSE LOPEZ DO 719.45 HIP PAIN 02/12/2012 719.45 HIP PAIN 02/12/2012 719.45 HIP PAIN 02/12/2012 719.45 HIP PAIN 02/12/2012 719.45 HIP PAIN 02/12/2012 719.45 HIP PAIN 02/12/2012 719.45 HIP PAIN 02/12/2012 719.45 HIP PAIN 02/12/2012 719.45 HIP PAIN 02/12/2012 719.45 HIP PAIN 02/12/2012 719.45 HIP PAIN 02/12/2012 719.45 HIP PAIN 02/12/2012 719.45 HIP PAIN 02/12/2012 719.45 HIP PAIN 02/12/2012 719.45 HIP PAIN 02/12/2012 719.45 HIP PAIN 02/12/2012 719.45 HIP PAIN 02/12/2012 719.45 HIP PAIN 02/12/2012 719.45 HIP PAIN 02/12/2012 719.45 HIP PAIN 02/12/2012 719.45 HIP PAIN 02/12/2012 719.45 HIP PAIN 02/12/2012 719.45 HIP PAIN 02/12/2012 LOPEZ DO, JESSE K 719.45 HIP PAIN 02/12/2012 ABHISHEK TADEO APRN 719.45 HIP PAIN 02/12/2012 SARAH KIM MD 719.45 HIP PAIN 02/12/2012 SARAH KIM MD 719.45 HIP PAIN 02/12/2012 SARAH KIM MD 719.45 HIP PAIN 02/12/2012 SARAH KIM MD 719.45 HIP PAIN 02/12/2012 SARAH KIM MD 719.45 HIP PAIN 02/12/2012 YAMILETH LAURENT MD 71Sabas.45 HIP PAIN 02/12/2012 YAMILETH LAURENT MD.45 HIP PAIN 02/12/2012 LOPEZ DO, JESSE K 719.45 HIP PAIN 02/12/2012 LOPEZ DO, JESSE K 719.45 HIP PAIN 02/12/2012 LOPEZ DO, JESSE K 719.45 HIP PAIN 02/12/2012 LOPEZ DO, JESSE K 719.45 HIP PAIN 02/12/2012 YAMILETH LAURENT MD.45 HIP PAIN 02/12/2012 YAMILETH LAURENT MD.45 HIP PAIN 02/12/2012 LOPEZ DO JESSE K 719.45 HIP PAIN 02/12/2012 YAMILETH LAURENT MD.45 HIP PAIN 02/12/2012 ZENA UMANZOR APRN 719.45 HIP PAIN 02/12/2012 ZENA UMANZOR APRN 719.45 HIP PAIN 02/12/2012 ZENA UMANZOR APRN 719.45 HIP PAIN 02/12/2012 ZENA UMANZOR APRN 719.45 HIP PAIN 02/12/2012 LOPEZ DO, JESSE K 719.45 HIP PAIN 02/12/2012 ZENA UMANZOR APRN T 719.45 HIP PAIN 02/12/2012 ZENA UMANZOR APRN T 719.45 HIP PAIN 02/12/2012 ZENA UMANZOR APRN T 719.45 HIP PAIN 02/12/2012 ZENA UMANZOR APRN T 719.45 HIP PAIN 02/12/2012 ZENA UMANZOR APRN 719.45 HIP PAIN 02/12/2012 LOPEZ DO, JESSE K 719.45 HIP PAIN 02/12/2012 LOPEZ DO, JESSE K 719.45 HIP PAIN 02/12/2012 ZENA UMANZOR APRN T 719.45 HIP PAIN 02/12/2012 ZENA UMANZOR APRN T 719.45 HIP PAIN 02/12/2012 YAMILETH LAURENT MD 719.45 HIP PAIN 02/12/2012 ZENA UMANZOR APRN T 719.45 HIP PAIN 02/12/2012 ZENA UMANZOR APRN 719.45 HIP PAIN 02/12/2012 ZENA UMANZOR APRN T 719.45 HIP PAIN 02/12/2012 ZENA UMANZOR APRN T 719.45 HIP PAIN 02/12/2012 ZENA UMANZOR APRN T 719.45 HIP PAIN 02/12/2012 ZENA UMANZOR APRN T 719.45 HIP PAIN 02/12/2012 LOPEZ DO, JESSE K 719.45 HIP PAIN 02/12/2012 ZENA UMANZOR APRN T 719.45 HIP PAIN 02/12/2012 ZENA UMANZOR APRN T 719.45 HIP PAIN 02/12/2012 LOPEZ DO, JESSE K 719.45 HIP PAIN 02/12/2012 LOPEZ DO, JESSE K 719.45 HIP PAIN 02/12/2012 ZENA UMANZOR APRN T 719.45 HIP PAIN 02/12/2012 KENDALL OTTO MD 719.45 HIP PAIN 02/28/2012 FAM DAVIS, KENDALL 457.1 OTHER LYMPHEDEMA 02/28/2012 LOPEZ CLEO CASEA K 457.1 OTHER LYMPHEDEMA 02/28/2012 457.1 OTHER LYMPHEDEMA 02/28/2012 457.1 OTHER LYMPHEDEMA 02/28/2012 457.1 OTHER LYMPHEDEMA 02/28/2012 457.1 OTHER LYMPHEDEMA 02/28/2012 457.1 OTHER LYMPHEDEMA 02/28/2012 457.1 OTHER LYMPHEDEMA 02/28/2012 457.1 OTHER LYMPHEDEMA 02/28/2012 457.1 OTHER LYMPHEDEMA 02/28/2012 457.1 OTHER LYMPHEDEMA 02/28/2012 457.1 OTHER LYMPHEDEMA 02/28/2012 457.1 OTHER LYMPHEDEMA 02/28/2012 457.1 OTHER LYMPHEDEMA 02/28/2012 457.1 OTHER LYMPHEDEMA 02/28/2012 457.1 OTHER LYMPHEDEMA 02/28/2012 457.1 OTHER LYMPHEDEMA 02/28/2012 457.1 OTHER LYMPHEDEMA 02/28/2012 457.1 OTHER LYMPHEDEMA 02/28/2012 457.1 OTHER LYMPHEDEMA 02/28/2012 457.1 OTHER LYMPHEDEMA 02/28/2012 457.1 OTHER LYMPHEDEMA 02/28/2012 457.1 OTHER LYMPHEDEMA 02/28/2012 457.1 OTHER LYMPHEDEMA 02/28/2012 LOPEZ DO JESSE K 457.1 OTHER LYMPHEDEMA 02/28/2012 ABHISHEK TADEO APRN 457.1 OTHER LYMPHEDEMA 02/28/2012 SARAH KIM MD 457.1 OTHER LYMPHEDEMA 02/28/2012 SARAH KIM MD 457.1 OTHER LYMPHEDEMA 02/28/2012 SARAH KIM MD 457.1 OTHER LYMPHEDEMA 02/28/2012 SARAH KIM MD 457.1 OTHER LYMPHEDEMA 02/28/2012 SARAH KIM MD 457.1 OTHER LYMPHEDEMA 02/28/2012 YAMILETH LAURENT MD 457.1 OTHER LYMPHEDEMA 02/28/2012 YAMILETH LAURENT MD 457.1 OTHER LYMPHEDEMA 02/28/2012 LOPEZ DO EJSSE K 457.1 OTHER LYMPHEDEMA 02/28/2012 LOPEZ DO JESSE K 457.1 OTHER LYMPHEDEMA 02/28/2012 LOPEZ DO JESSE K 457.1 OTHER LYMPHEDEMA 02/28/2012 LOPEZ DO JESSE K 457.1 OTHER LYMPHEDEMA 02/28/2012 YAMILETH LAURENT MD 457.1 OTHER LYMPHEDEMA 02/28/2012 YAMILETH LAURENT MD 457.1 OTHER LYMPHEDEMA 02/28/2012 LOPEZ DO JESSE K 457.1 OTHER LYMPHEDEMA 02/28/2012 YAMILETH LAURENT MD 457.1 OTHER LYMPHEDEMA 02/28/2012 NOÉ SALES PRODUCER, ZENA T 457.1 OTHER LYMPHEDEMA 02/28/2012 ZENA UMANZOR APRN 457.1 OTHER LYMPHEDEMA 02/28/2012 ZENA UMANZOR APRN 457.1 OTHER LYMPHEDEMA 02/28/2012 ZENA UMANZOR APRN 457.1 OTHER LYMPHEDEMA 02/28/2012 LOPEZ DO, JESSE K 457.1 OTHER LYMPHEDEMA 02/28/2012 ZENA UMANZOR APRN 457.1 OTHER LYMPHEDEMA 02/28/2012 ZENA UMANZOR APRN 457.1 OTHER LYMPHEDEMA 02/28/2012 ZENA UMANZOR APRN 457.1 OTHER LYMPHEDEMA 02/28/2012 ZENA UMANZOR APRN 457.1 OTHER LYMPHEDEMA 02/28/2012 ZENA UMANZOR APRN 457.1 OTHER LYMPHEDEMA 02/28/2012 LOPEZ DO, JESSE K 457.1 OTHER LYMPHEDEMA 02/28/2012 LOPEZ DO, JESSE K 457.1 OTHER LYMPHEDEMA 02/28/2012 ZENA UMANZOR APRN 457.1 OTHER LYMPHEDEMA 02/28/2012 ZENA UMANZOR APRN 457.1 OTHER LYMPHEDEMA 02/28/2012 ANASTASIIA DAVIS, YAMILETH 457.1 OTHER LYMPHEDEMA 02/28/2012 ZENA UMANZOR APRN 457.1 OTHER LYMPHEDEMA 02/28/2012 ZENA UMANZOR APRN 457.1 OTHER LYMPHEDEMA 02/28/2012 ZENA UMANZOR APRN 457.1 OTHER LYMPHEDEMA 02/28/2012 ZENA UMANZOR APRN 457.1 OTHER LYMPHEDEMA 02/28/2012 ZENA UMANZOR APRN 457.1 OTHER LYMPHEDEMA 02/28/2012 ZENA UMANZOR APRN 457.1 OTHER LYMPHEDEMA 02/28/2012 LOPEZ DO, JESSE K 457.1 OTHER LYMPHEDEMA 02/28/2012 ZENA UMANZOR APRN 457.1 OTHER LYMPHEDEMA 02/28/2012 ZENA UMANZOR APRN 457.1 OTHER LYMPHEDEMA 02/28/2012 LOPEZ DO, JESSE K 457.1 OTHER LYMPHEDEMA 02/28/2012 LOPEZ DO, JESSE K 457.1 OTHER LYMPHEDEMA 02/28/2012 ZENA UMANZOR APRN 457.1 OTHER LYMPHEDEMA 02/28/2012 FAM DAVIS, KENDALL 457.1 OTHER LYMPHEDEMA 03/09/2012 Ot 272.1 PURE HYPERGLYCERIDEMIA 03/09/2012 Ot 278.01 MORBID OBESITY 03/09/2012 Ot 305.1 TOBACCO USE DISORDER 03/09/2012 Ot 428.0 CONGESTIVE HEART FAILURE NOS 03/09/2012 Ot 558.9 NONINF GASTROENTERIT NEC 03/09/2012 Ot 571.8 CHRONIC LIVER DIS NEC 03/09/2012 Ot 620.9 NONINFL DIS OVA/ADNX NOS 03/09/2012 Ot 722.52 LUMB/ LUMBOSAC DISC DEGEN 03/09/2012 Ot 729.1 MYALGIA AND MYOSITIS NOS 03/09/2012 Ot 729.81 SWELLING OF LIMB 03/09/2012 Ot 780.57 UNSPECIFIED SLEEP APNEA 03/09/2012 Ot 782.3 EDEMA 03/09/2012 Ot 785.6 ENLARGEMENT LYMPH NODES 03/09/2012 Ot 790.99 BLOOD EXAM - OTH NONSPECIFIC FINDINGS 03/09/2012 Ot 799.02 HYPOXEMIA 03/09/2012 Ot V85.43 BODY MASS INDEX 50.0-59.9, ADULT 03/17/2012 KENDALL OTTO MD 272.1 ESSENTIAL HYPERTRIGLYCERIDEMIA 03/17/2012 KENDALL OTTO MD 278.01 OBESITY MORBID 03/17/2012 KENDALL OTTO MD 571.8 FATTY LIVER 03/17/2012 KENDALL OTTO MD 785.6 MEDIASTINAL MASSES LYMPHADENOPATHY 03/17/2012 KENDALL OTTO MD 799.02 HYPOXIA 03/17/2012 JESSE LOPEZ DO 272.1 ESSENTIAL HYPERTRIGLYCERIDEMIA 03/17/2012 JESSE LOPEZ DO 278.01 OBESITY MORBID 03/17/2012 JESSE LOPEZ DO 571.8 FATTY LIVER 03/17/2012 JESSE LOPEZ DO 785.6 MEDIASTINAL MASSES LYMPHADENOPATHY 03/17/2012 JESSE LOPEZ DO 799.02 HYPOXIA 03/17/2012 272.1 ESSENTIAL HYPERTRIGLYCERIDEMIA 03/17/2012 278.01 OBESITY MORBID 03/17/2012 571.8 FATTY LIVER 03/17/2012 785.6 MEDIASTINAL MASSES LYMPHADENOPATHY 03/17/2012 799.02 HYPOXIA 03/17/2012 272.1 ESSENTIAL HYPERTRIGLYCERIDEMIA 03/17/2012 278.01 OBESITY MORBID 03/17/2012 571.8 FATTY LIVER 03/17/2012 785.6 MEDIASTINAL MASSES LYMPHADENOPATHY 03/17/2012 799.02 HYPOXIA 03/17/2012 272.1 ESSENTIAL HYPERTRIGLYCERIDEMIA 03/17/2012 278.01 OBESITY MORBID 03/17/2012 571.8 FATTY LIVER 03/17/2012 785.6 MEDIASTINAL MASSES LYMPHADENOPATHY 03/17/2012 799.02 HYPOXIA 03/17/2012 272.1 ESSENTIAL HYPERTRIGLYCERIDEMIA 03/17/2012 278.01 OBESITY MORBID 03/17/2012 571.8 FATTY LIVER 03/17/2012 785.6 MEDIASTINAL MASSES LYMPHADENOPATHY 03/17/2012 799.02 HYPOXIA 03/17/2012 272.1 ESSENTIAL HYPERTRIGLYCERIDEMIA 03/17/2012 278.01 OBESITY MORBID 03/17/2012 571.8 FATTY LIVER 03/17/2012 785.6 MEDIASTINAL MASSES LYMPHADENOPATHY 03/17/2012 799.02 HYPOXIA 03/17/2012 272.1 ESSENTIAL HYPERTRIGLYCERIDEMIA 03/17/2012 278.01 OBESITY MORBID 03/17/2012 571.8 FATTY LIVER 03/17/2012 785.6 MEDIASTINAL MASSES LYMPHADENOPATHY 03/17/2012 799.02 HYPOXIA 03/17/2012 272.1 ESSENTIAL HYPERTRIGLYCERIDEMIA 03/17/2012 278.01 OBESITY MORBID 03/17/2012 571.8 FATTY LIVER 03/17/2012 785.6 MEDIASTINAL MASSES LYMPHADENOPATHY 03/17/2012 799.02 HYPOXIA 03/17/2012 272.1 ESSENTIAL HYPERTRIGLYCERIDEMIA 03/17/2012 278.01 OBESITY MORBID 03/17/2012 571.8 FATTY LIVER 03/17/2012 785.6 MEDIASTINAL MASSES LYMPHADENOPATHY 03/17/2012 799.02 HYPOXIA 03/17/2012 272.1 ESSENTIAL HYPERTRIGLYCERIDEMIA 03/17/2012 278.01 OBESITY MORBID 03/17/2012 571.8 FATTY LIVER 03/17/2012 785.6 MEDIASTINAL MASSES LYMPHADENOPATHY 03/17/2012 799.02 HYPOXIA 03/17/2012 272.1 ESSENTIAL HYPERTRIGLYCERIDEMIA 03/17/2012 278.01 OBESITY MORBID 03/17/2012 571.8 FATTY LIVER 03/17/2012 785.6 MEDIASTINAL MASSES LYMPHADENOPATHY 03/17/2012 799.02 HYPOXIA 03/17/2012 272.1 ESSENTIAL HYPERTRIGLYCERIDEMIA 03/17/2012 278.01 OBESITY MORBID 03/17/2012 571.8 FATTY LIVER 03/17/2012 785.6 MEDIASTINAL MASSES LYMPHADENOPATHY 03/17/2012 799.02 HYPOXIA 03/17/2012 272.1 ESSENTIAL HYPERTRIGLYCERIDEMIA 03/17/2012 278.01 OBESITY MORBID 03/17/2012 571.8 FATTY LIVER 03/17/2012 785.6 MEDIASTINAL MASSES LYMPHADENOPATHY 03/17/2012 799.02 HYPOXIA 03/17/2012 272.1 ESSENTIAL HYPERTRIGLYCERIDEMIA 03/17/2012 278.01 OBESITY MORBID 03/17/2012 571.8 FATTY LIVER 03/17/2012 785.6 MEDIASTINAL MASSES LYMPHADENOPATHY 03/17/2012 799.02 HYPOXIA 03/17/2012 272.1 ESSENTIAL HYPERTRIGLYCERIDEMIA 03/17/2012 278.01 OBESITY MORBID 03/17/2012 571.8 FATTY LIVER 03/17/2012 785.6 MEDIASTINAL MASSES LYMPHADENOPATHY 03/17/2012 799.02 HYPOXIA 03/17/2012 272.1 ESSENTIAL HYPERTRIGLYCERIDEMIA 03/17/2012 278.01 OBESITY MORBID 03/17/2012 571.8 FATTY LIVER 03/17/2012 785.6 MEDIASTINAL MASSES LYMPHADENOPATHY 03/17/2012 799.02 HYPOXIA 03/17/2012 272.1 ESSENTIAL HYPERTRIGLYCERIDEMIA 03/17/2012 278.01 OBESITY MORBID 03/17/2012 571.8 FATTY LIVER 03/17/2012 785.6 MEDIASTINAL MASSES LYMPHADENOPATHY 03/17/2012 799.02 HYPOXIA 03/17/2012 272.1 ESSENTIAL HYPERTRIGLYCERIDEMIA 03/17/2012 278.01 OBESITY MORBID 03/17/2012 571.8 FATTY LIVER 03/17/2012 785.6 MEDIASTINAL MASSES LYMPHADENOPATHY 03/17/2012 799.02 HYPOXIA 03/17/2012 272.1 ESSENTIAL HYPERTRIGLYCERIDEMIA 03/17/2012 278.01 OBESITY MORBID 03/17/2012 571.8 FATTY LIVER 03/17/2012 785.6 MEDIASTINAL MASSES LYMPHADENOPATHY 03/17/2012 799.02 HYPOXIA 03/17/2012 272.1 ESSENTIAL HYPERTRIGLYCERIDEMIA 03/17/2012 278.01 OBESITY MORBID 03/17/2012 571.8 FATTY LIVER 03/17/2012 785.6 MEDIASTINAL MASSES LYMPHADENOPATHY 03/17/2012 799.02 HYPOXIA 03/17/2012 272.1 ESSENTIAL HYPERTRIGLYCERIDEMIA 03/17/2012 278.01 OBESITY MORBID 03/17/2012 571.8 FATTY LIVER 03/17/2012 785.6 MEDIASTINAL MASSES LYMPHADENOPATHY 03/17/2012 799.02 HYPOXIA 03/17/2012 272.1 ESSENTIAL HYPERTRIGLYCERIDEMIA 03/17/2012 278.01 OBESITY MORBID 03/17/2012 571.8 FATTY LIVER 03/17/2012 785.6 MEDIASTINAL MASSES LYMPHADENOPATHY 03/17/2012 799.02 HYPOXIA 03/17/2012 272.1 ESSENTIAL HYPERTRIGLYCERIDEMIA 03/17/2012 278.01 OBESITY MORBID 03/17/2012 571.8 FATTY LIVER 03/17/2012 785.6 MEDIASTINAL MASSES LYMPHADENOPATHY 03/17/2012 799.02 HYPOXIA 03/17/2012 LOPEZ DO JESSE K 272.1 ESSENTIAL HYPERTRIGLYCERIDEMIA 03/17/2012 LOPEZ DO, JESSE K 278.01 OBESITY MORBID 03/17/2012 LOPEZ , JESSE K 571.8 FATTY LIVER 03/17/2012 LOPEZ , JESSE K 785.6 MEDIASTINAL MASSES LYMPHADENOPATHY 03/17/2012 LOPEZ , JESSE K 799.02 HYPOXIA 03/17/2012 CARLYLE NETTLES ABHISHEK R 272.1 ESSENTIAL HYPERTRIGLYCERIDEMIA 03/17/2012 CARLYLE SALES PRODUCER, ABHISHEK R 278.01 OBESITY MORBID 03/17/2012 CARLYLE NETTLES ABHISHEK R 571.8 FATTY LIVER 03/17/2012 CARLYLE NETTLES ABHISHEK R 785.6 MEDIASTINAL MASSES LYMPHADENOPATHY 03/17/2012 CARLYLE NETTLES ABHISHEK R 799.02 HYPOXIA 03/17/2012 SARAH KIM MD 272.1 ESSENTIAL HYPERTRIGLYCERIDEMIA 03/17/2012 SARAH KIM MD 278.01 OBESITY MORBID 03/17/2012 SARAH KIM MD 571.8 FATTY LIVER 03/17/2012 SARAH KIM MD 785.6 MEDIASTINAL MASSES LYMPHADENOPATHY 03/17/2012 SARAH KIM MD 799.02 HYPOXIA 03/17/2012 SARAH KIM MD 272.1 ESSENTIAL HYPERTRIGLYCERIDEMIA 03/17/2012 SARAH KIM MD 278.01 OBESITY MORBID 03/17/2012 SARAH KIM MD 571.8 FATTY LIVER 03/17/2012 SARAH KIM MD 785.6 MEDIASTINAL MASSES LYMPHADENOPATHY 03/17/2012 SARAH KIM MD 799.02 HYPOXIA 03/17/2012 SARAH KIM MD 272.1 ESSENTIAL HYPERTRIGLYCERIDEMIA 03/17/2012 SARAH KIM MD 278.01 OBESITY MORBID 03/17/2012 SARAH KIM MD 571.8 FATTY LIVER 03/17/2012 SARAH KIM MD 785.6 MEDIASTINAL MASSES LYMPHADENOPATHY 03/17/2012 SARAH KIM MD 799.02 HYPOXIA 03/17/2012 SARAH KIM MD 272.1 ESSENTIAL HYPERTRIGLYCERIDEMIA 03/17/2012 SARAH KIM MD 278.01 OBESITY MORBID 03/17/2012 SARAH KIM MD 571.8 FATTY LIVER 03/17/2012 SARAH KIM MD 785.6 MEDIASTINAL MASSES LYMPHADENOPATHY 03/17/2012 SARAH KIM MD 799.02 HYPOXIA 03/17/2012 SARAH KIM MD 272.1 ESSENTIAL HYPERTRIGLYCERIDEMIA 03/17/2012 SARAH KIM MD 278.01 OBESITY MORBID 03/17/2012 SARAH KIM MD 571.8 FATTY LIVER 03/17/2012 SARAH KIM MD 785.6 MEDIASTINAL MASSES LYMPHADENOPATHY 03/17/2012 SARAH KIM MD 799.02 HYPOXIA 03/17/2012 YAMILETH LAURENT MD 272.1 ESSENTIAL HYPERTRIGLYCERIDEMIA 03/17/2012 YAMILETH LAURENT MD 278.01 OBESITY MORBID 03/17/2012 YAMILETH LAURENT MD 571.8 FATTY LIVER 03/17/2012 YAMILETH LAURENT MD 785.6 MEDIASTINAL MASSES LYMPHADENOPATHY 03/17/2012 YAMILETH LAURENT MD 799.02 HYPOXIA 03/17/2012 YAMILETH LAURENT MD 272.1 ESSENTIAL HYPERTRIGLYCERIDEMIA 03/17/2012 YAMILETH LAURENT MD 278.01 OBESITY MORBID 03/17/2012 YAMILETH LAURENT MD 571.8 FATTY LIVER 03/17/2012 YAMILETH LAURENT MD 785.6 MEDIASTINAL MASSES LYMPHADENOPATHY 03/17/2012 YAMILETH LAURENT MD 799.02 HYPOXIA 03/17/2012 LOPEZ DO JESSE K 272.1 ESSENTIAL HYPERTRIGLYCERIDEMIA 03/17/2012 LOPEZ DO, JESSE K 278.01 OBESITY MORBID 03/17/2012 LOPEZ DO JESSE K 571.8 FATTY LIVER 03/17/2012 LOPEZ DO JESSE K 785.6 MEDIASTINAL MASSES LYMPHADENOPATHY 03/17/2012 LOPEZ DO, JESSE K 799.02 HYPOXIA 03/17/2012 LOPEZ DO JESSE K 272.1 ESSENTIAL HYPERTRIGLYCERIDEMIA 03/17/2012 LOPEZ DO, JESSE K 278.01 OBESITY MORBID 03/17/2012 LOPEZ DO JESSE K 571.8 FATTY LIVER 03/17/2012 LOPEZ DO, JESSE K 785.6 MEDIASTINAL MASSES LYMPHADENOPATHY 03/17/2012 LOPEZ DO, JESSE K 799.02 HYPOXIA 03/17/2012 LOPEZ DO, JESSE K 272.1 ESSENTIAL HYPERTRIGLYCERIDEMIA 03/17/2012 LOPEZ DO, JESSE K 278.01 OBESITY MORBID 03/17/2012 LOPEZ DO, JESSE K 571.8 FATTY LIVER 03/17/2012 LOEPZ DO, JESSE K 785.6 MEDIASTINAL MASSES LYMPHADENOPATHY 03/17/2012 LOPEZ DO, JESSE K 799.02 HYPOXIA 03/17/2012 LOPEZ DO, JESSE K 272.1 ESSENTIAL HYPERTRIGLYCERIDEMIA 03/17/2012 LOPEZ DO, JESSE K 278.01 OBESITY MORBID 03/17/2012 LOPEZ DO, JESSE K 571.8 FATTY LIVER 03/17/2012 LOPEZ DO, JESSE K 785.6 MEDIASTINAL MASSES LYMPHADENOPATHY 03/17/2012 LOPEZ DO, JESSE K 799.02 HYPOXIA 03/17/2012 YAMILETH LAURENT MD 272.1 ESSENTIAL HYPERTRIGLYCERIDEMIA 03/17/2012 YAMILETH LAURENT MD 278.01 OBESITY MORBID 03/17/2012 YAMILETH LAURENT MD1.8 FATTY LIVER 03/17/2012 YAMILETH LAURENT MD 785.6 MEDIASTINAL MASSES LYMPHADENOPATHY 03/17/2012 YAMILETH LAURENT MD 799.02 HYPOXIA 03/17/2012 YAMILETH LAURENT MD 272.1 ESSENTIAL HYPERTRIGLYCERIDEMIA 03/17/2012 YAMILETH LAURENT MD 278.01 OBESITY MORBID 03/17/2012 YAMILETH LAURENT MD1.8 FATTY LIVER 03/17/2012 YAMILETH LAURENT MD 785.6 MEDIASTINAL MASSES LYMPHADENOPATHY 03/17/2012 YAMILETH LAURENT MD 799.02 HYPOXIA 03/17/2012 LOPEZ DO, JESSE K 272.1 ESSENTIAL HYPERTRIGLYCERIDEMIA 03/17/2012 LOPEZ DO, JESSE K 278.01 OBESITY MORBID 03/17/2012 LOPEZ DO, JESSE K 571.8 FATTY LIVER 03/17/2012 LOPEZ DO, JESSE K 785.6 MEDIASTINAL MASSES LYMPHADENOPATHY 03/17/2012 LOPEZ DO, JESSE K 799.02 HYPOXIA 03/17/2012 YAMILETH LAURENT MD 272.1 ESSENTIAL HYPERTRIGLYCERIDEMIA 03/17/2012 YAMILETH LAURENT MD 278.01 OBESITY MORBID 03/17/2012 YAMILETH LAURENT MD.8 FATTY LIVER 03/17/2012 YAMILETH LAURENT MD 785.6 MEDIASTINAL MASSES LYMPHADENOPATHY 03/17/2012 YAMILETH LAURENT MD 799.02 HYPOXIA 03/17/2012 ZENA UMANZOR APRN T 272.1 ESSENTIAL HYPERTRIGLYCERIDEMIA 03/17/2012 ZENA UMANZOR APRN T 278.01 OBESITY MORBID 03/17/2012 ZENA UMANZOR APRN T 571.8 FATTY LIVER 03/17/2012 ZENA UMANZOR APRN T 785.6 MEDIASTINAL MASSES LYMPHADENOPATHY 03/17/2012 ZENA UMANZOR APRN 799.02 HYPOXIA 03/17/2012 ZENA UMANZOR APRN T 272.1 ESSENTIAL HYPERTRIGLYCERIDEMIA 03/17/2012 ZENA UMANZOR APRN T 278.01 OBESITY MORBID 03/17/2012 ZENA UMANZOR APRN 571.8 FATTY LIVER 03/17/2012 ZENA UMANZOR APRN 785.6 MEDIASTINAL MASSES LYMPHADENOPATHY 03/17/2012 ZENA UMANZOR APRN 799.02 HYPOXIA 03/17/2012 ZENA UMANZOR APRN 272.1 ESSENTIAL HYPERTRIGLYCERIDEMIA 03/17/2012 ZENA UMANZOR APRN T 278.01 OBESITY MORBID 03/17/2012 ZENA UMANZOR APRN 571.8 FATTY LIVER 03/17/2012 ZENA UMANZOR APRN 785.6 MEDIASTINAL MASSES LYMPHADENOPATHY 03/17/2012 ZENA UMANZOR APRN 799.02 HYPOXIA 03/17/2012 ZENA UMANZOR APRN T 272.1 ESSENTIAL HYPERTRIGLYCERIDEMIA 03/17/2012 ZENA UMANZOR APRN T 278.01 OBESITY MORBID 03/17/2012 ZENA UMANZOR APRN T 571.8 FATTY LIVER 03/17/2012 ZENA UMANZOR APRN 785.6 MEDIASTINAL MASSES LYMPHADENOPATHY 03/17/2012 ZENA UMANZOR APRN 799.02 HYPOXIA 03/17/2012 LOPEZ DO, JESSE K 272.1 ESSENTIAL HYPERTRIGLYCERIDEMIA 03/17/2012 LOPEZ DO, JESSE K 278.01 OBESITY MORBID 03/17/2012 LOPEZ DO, JESSE K 571.8 FATTY LIVER 03/17/2012 LOPEZ DO, JESSE K 785.6 MEDIASTINAL MASSES LYMPHADENOPATHY 03/17/2012 LOPEZ DO, JESSE K 799.02 HYPOXIA 03/17/2012 ZENA UMANZOR APRN T 272.1 ESSENTIAL HYPERTRIGLYCERIDEMIA 03/17/2012 ZENA UMANZOR APRN T 278.01 OBESITY MORBID 03/17/2012 ZENA UMANZOR APRN T 571.8 FATTY LIVER 03/17/2012 ZENA UMANZOR APRN T 785.6 MEDIASTINAL MASSES LYMPHADENOPATHY 03/17/2012 ZENA UMANZOR APRN T 799.02 HYPOXIA 03/17/2012 ZENA UMANZOR APRN T 272.1 ESSENTIAL HYPERTRIGLYCERIDEMIA 03/17/2012 ZENA UMANZOR APRN T 278.01 OBESITY MORBID 03/17/2012 ZENA UMANZOR APRN T 571.8 FATTY LIVER 03/17/2012 ZENA UMANZOR APRN T 785.6 MEDIASTINAL MASSES LYMPHADENOPATHY 03/17/2012 ZENA UMANZOR APRN 799.02 HYPOXIA 03/17/2012 ZENA UMANZOR APRN T 272.1 ESSENTIAL HYPERTRIGLYCERIDEMIA 03/17/2012 ZENA UMANZOR APRN T 278.01 OBESITY MORBID 03/17/2012 ZENA UMANZOR APRN 571.8 FATTY LIVER 03/17/2012 ZENA UMANZOR APRN 785.6 MEDIASTINAL MASSES LYMPHADENOPATHY 03/17/2012 ZENA UMANZOR APRN 799.02 HYPOXIA 03/17/2012 ZENA UMANZOR APRN 272.1 ESSENTIAL HYPERTRIGLYCERIDEMIA 03/17/2012 ZENA UMANZOR APRN 278.01 OBESITY MORBID 03/17/2012 ZENA UMANZOR APRN 571.8 FATTY LIVER 03/17/2012 ZENA UMANZOR APRN 785.6 MEDIASTINAL MASSES LYMPHADENOPATHY 03/17/2012 ZENA UMANZOR APRN 799.02 HYPOXIA 03/17/2012 ZENA UMANZOR APRN 272.1 ESSENTIAL HYPERTRIGLYCERIDEMIA 03/17/2012 ZENA UMANZOR APRN T 278.01 OBESITY MORBID 03/17/2012 ZENA UMANZOR APRN T 571.8 FATTY LIVER 03/17/2012 ZENA UMANZOR APRN 785.6 MEDIASTINAL MASSES LYMPHADENOPATHY 03/17/2012 ZENA UMANZOR APRN T 799.02 HYPOXIA 03/17/2012 LOPEZ DO, JESSE K 272.1 ESSENTIAL HYPERTRIGLYCERIDEMIA 03/17/2012 LOPEZ DO, JESSE K 278.01 OBESITY MORBID 03/17/2012 LOPEZ DO, JESSE K 571.8 FATTY LIVER 03/17/2012 LOPEZ DO, JESSE K 785.6 MEDIASTINAL MASSES LYMPHADENOPATHY 03/17/2012 LOPEZ DO, JESSE K 799.02 HYPOXIA 03/17/2012 LOPEZ DO, JESSE K 272.1 ESSENTIAL HYPERTRIGLYCERIDEMIA 03/17/2012 LOPEZ DO, JESSE K 278.01 OBESITY MORBID 03/17/2012 LOPEZ DO, JESSE K 571.8 FATTY LIVER 03/17/2012 LOPEZ DO, JESSE K 785.6 MEDIASTINAL MASSES LYMPHADENOPATHY 03/17/2012 LOPEZ DO, JESSE K 799.02 HYPOXIA 03/17/2012 ZENA UMANZOR APRN 272.1 ESSENTIAL HYPERTRIGLYCERIDEMIA 03/17/2012 ZENA UMANZOR APRN T 278.01 OBESITY MORBID 03/17/2012 ZENA UMANZOR APRN 571.8 FATTY LIVER 03/17/2012 ZENA UMANZOR APRN 785.6 MEDIASTINAL MASSES LYMPHADENOPATHY 03/17/2012 ZENA UMANZOR APRN 799.02 HYPOXIA 03/17/2012 ZENA UMANZOR APRN 272.1 ESSENTIAL HYPERTRIGLYCERIDEMIA 03/17/2012 ZENA UMANZOR APRN 278.01 OBESITY MORBID 03/17/2012 ZENA UMANZOR APRN 571.8 FATTY LIVER 03/17/2012 ZENA UMANZOR APRN 785.6 MEDIASTINAL MASSES LYMPHADENOPATHY 03/17/2012 ZENA UMANZOR APRN 799.02 HYPOXIA 03/17/2012 YAMILETH LAURENT MD 272.1 ESSENTIAL HYPERTRIGLYCERIDEMIA 03/17/2012 YAMILETH LAURENT MD 278.01 OBESITY MORBID 03/17/2012 YAMILETH LAURENT MD 571.8 FATTY LIVER 03/17/2012 YAMILETH LAURENT MD 785.6 MEDIASTINAL MASSES LYMPHADENOPATHY 03/17/2012 YAMILETH LAURENT MD 799.02 HYPOXIA 03/17/2012 ZENA UMANZOR APRN 272.1 ESSENTIAL HYPERTRIGLYCERIDEMIA 03/17/2012 ZENA UMANZOR APRN 278.01 OBESITY MORBID 03/17/2012 ZENA UMANZOR APRN 571.8 FATTY LIVER 03/17/2012 ZENA UMANZOR APRN 785.6 MEDIASTINAL MASSES LYMPHADENOPATHY 03/17/2012 ZENA UMANZOR APRN 799.02 HYPOXIA 03/17/2012 ZENA UMANZOR APRN 272.1 ESSENTIAL HYPERTRIGLYCERIDEMIA 03/17/2012 ZENA UMANZOR APRN 278.01 OBESITY MORBID 03/17/2012 ZENA UMANZOR APRN 571.8 FATTY LIVER 03/17/2012 ZENA UMANZOR APRN 785.6 MEDIASTINAL MASSES LYMPHADENOPATHY 03/17/2012 ZENA UMANZOR APRN 799.02 HYPOXIA 03/17/2012 ZENA UMANZOR APRN 272.1 ESSENTIAL HYPERTRIGLYCERIDEMIA 03/17/2012 ZENA UMANZOR APRN 278.01 OBESITY MORBID 03/17/2012 ZENA UMANZOR APRN 571.8 FATTY LIVER 03/17/2012 ZENA UMANZOR APRN T 785.6 MEDIASTINAL MASSES LYMPHADENOPATHY 03/17/2012 ZENA UMANZOR APRN T 799.02 HYPOXIA 03/17/2012 ZENA UMANZOR APRN T 272.1 ESSENTIAL HYPERTRIGLYCERIDEMIA 03/17/2012 ZENA UMANZOR APRN T 278.01 OBESITY MORBID 03/17/2012 ZENA UMANZOR APRN T 571.8 FATTY LIVER 03/17/2012 ZENA UMANZOR APRN 785.6 MEDIASTINAL MASSES LYMPHADENOPATHY 03/17/2012 ZENA UMANZOR APRN 799.02 HYPOXIA 03/17/2012 ZENA UMANZOR APRN 272.1 ESSENTIAL HYPERTRIGLYCERIDEMIA 03/17/2012 ZENA UMANZOR APRN T 278.01 OBESITY MORBID 03/17/2012 ZENA UMANZOR APRN 571.8 FATTY LIVER 03/17/2012 ZENA UMANZOR APRN 785.6 MEDIASTINAL MASSES LYMPHADENOPATHY 03/17/2012 ZENA UMANZOR APRN 799.02 HYPOXIA 03/17/2012 ZENA UMNAZOR APRN 272.1 ESSENTIAL HYPERTRIGLYCERIDEMIA 03/17/2012 ZENA UMANZOR APRN 278.01 OBESITY MORBID 03/17/2012 ZENA UMANZOR APRN 571.8 FATTY LIVER 03/17/2012 ZENA UMANZOR APRN 785.6 MEDIASTINAL MASSES LYMPHADENOPATHY 03/17/2012 ZENA UMANZOR APRN 799.02 HYPOXIA 03/17/2012 LOPEZ DO, JESSE K 272.1 ESSENTIAL HYPERTRIGLYCERIDEMIA 03/17/2012 LOPEZ DO, JESSE K 278.01 OBESITY MORBID 03/17/2012 LOPEZ DO, JESSE K 571.8 FATTY LIVER 03/17/2012 LOPEZ DO, JESSE K 785.6 MEDIASTINAL MASSES LYMPHADENOPATHY 03/17/2012 LOPEZ DO, JESSE K 799.02 HYPOXIA 03/17/2012 EZNA UMANZOR APRN T 272.1 ESSENTIAL HYPERTRIGLYCERIDEMIA 03/17/2012 ZENA UMANZOR APRN T 278.01 OBESITY MORBID 03/17/2012 ZENA UMANZOR APRN 571.8 FATTY LIVER 03/17/2012 ZENA UMANZOR APRN 785.6 MEDIASTINAL MASSES LYMPHADENOPATHY 03/17/2012 ZENA UMANZOR APRN 799.02 HYPOXIA 03/17/2012 ZENA UMANZOR APRN 272.1 ESSENTIAL HYPERTRIGLYCERIDEMIA 03/17/2012 ZENA UMANZOR APRN 278.01 OBESITY MORBID 03/17/2012 ZENA UMANZOR APRN 571.8 FATTY LIVER 03/17/2012 ZENA UMANZOR APRN T 785.6 MEDIASTINAL MASSES LYMPHADENOPATHY 03/17/2012 ZENA UMANZOR APRN 799.02 HYPOXIA 03/17/2012 LOPEZ DO, JESSE K 272.1 ESSENTIAL HYPERTRIGLYCERIDEMIA 03/17/2012 LOPEZ DO, JESSE K 278.01 OBESITY MORBID 03/17/2012 LOPEZ DO, JESSE K 571.8 FATTY LIVER 03/17/2012 LOPEZ DO, JESSE K 785.6 MEDIASTINAL MASSES LYMPHADENOPATHY 03/17/2012 LOPEZ DO, JESSE K 799.02 HYPOXIA 03/17/2012 LOPEZ DO, JESSE K 272.1 ESSENTIAL HYPERTRIGLYCERIDEMIA 03/17/2012 LOPEZ DO, JESSE K 278.01 OBESITY MORBID 03/17/2012 LOPEZ DO, JESSE K 571.8 FATTY LIVER 03/17/2012 LOPEZ DO, JESSE K 785.6 MEDIASTINAL MASSES LYMPHADENOPATHY 03/17/2012 LOPEZ DO, JESSE K 799.02 HYPOXIA 03/17/2012 ZENA UMANZOR APRN 272.1 ESSENTIAL HYPERTRIGLYCERIDEMIA 03/17/2012 ZENA UMANZOR APRN 278.01 OBESITY MORBID 03/17/2012 ZENA UMANZOR APRN 571.8 FATTY LIVER 03/17/2012 ZENA UMANZOR APRN 785.6 MEDIASTINAL MASSES LYMPHADENOPATHY 03/17/2012 ZENA UMANZOR APRN 799.02 HYPOXIA 03/17/2012 KENDALL OTTO MD 272.1 ESSENTIAL HYPERTRIGLYCERIDEMIA 03/17/2012 KENDALL OTTO MD 278.01 OBESITY MORBID 03/17/2012 KENDALL OTTO MD 571.8 FATTY LIVER 03/17/2012 KENDALL OTTO MD 785.6 MEDIASTINAL MASSES LYMPHADENOPATHY 03/17/2012 KENDALL OTTO MD 799.02 HYPOXIA 04/23/2012 KENDALL OTTO MD 244.9 UNSPECIFIED ACQUIRED HYPOTHYROIDISM 04/23/2012 LOPEZ DO, JESSE K 244.9 UNSPECIFIED ACQUIRED HYPOTHYROIDISM 04/23/2012 244.9 UNSPECIFIED ACQUIRED HYPOTHYROIDISM 04/23/2012 244.9 UNSPECIFIED ACQUIRED HYPOTHYROIDISM 04/23/2012 244.9 UNSPECIFIED ACQUIRED HYPOTHYROIDISM 04/23/2012 244.9 UNSPECIFIED ACQUIRED HYPOTHYROIDISM 04/23/2012 244.9 UNSPECIFIED ACQUIRED HYPOTHYROIDISM 04/23/2012 244.9 UNSPECIFIED ACQUIRED HYPOTHYROIDISM 04/23/2012 244.9 UNSPECIFIED ACQUIRED HYPOTHYROIDISM 04/23/2012 244.9 UNSPECIFIED ACQUIRED HYPOTHYROIDISM 04/23/2012 244.9 UNSPECIFIED ACQUIRED HYPOTHYROIDISM 04/23/2012 244.9 UNSPECIFIED ACQUIRED HYPOTHYROIDISM 04/23/2012 244.9 UNSPECIFIED ACQUIRED HYPOTHYROIDISM 04/23/2012 244.9 UNSPECIFIED ACQUIRED HYPOTHYROIDISM 04/23/2012 244.9 UNSPECIFIED ACQUIRED HYPOTHYROIDISM 04/23/2012 244.9 UNSPECIFIED ACQUIRED HYPOTHYROIDISM 04/23/2012 244.9 UNSPECIFIED ACQUIRED HYPOTHYROIDISM 04/23/2012 244.9 UNSPECIFIED ACQUIRED HYPOTHYROIDISM 04/23/2012 244.9 UNSPECIFIED ACQUIRED HYPOTHYROIDISM 04/23/2012 244.9 UNSPECIFIED ACQUIRED HYPOTHYROIDISM 04/23/2012 244.9 HYPOTHYROIDISM 04/23/2012 244.9 HYPOTHYROIDISM 04/23/2012 244.9 HYPOTHYROIDISM 04/23/2012 244.9 HYPOTHYROIDISM 04/23/2012 JOHN DOCLEOA K 244.9 HYPOTHYROIDISM 04/23/2012 ABHISHEK TADEO APRN 244.9 HYPOTHYROIDISM 04/23/2012 SARAH KIM MD 244.9 HYPOTHYROIDISM 04/23/2012 SARAH KIM MD 244.9 HYPOTHYROIDISM 04/23/2012 SARAH KIM MD 244.9 HYPOTHYROIDISM 04/23/2012 SARAH KIM MD 244.9 HYPOTHYROIDISM 04/23/2012 SARAH KIM MD 244.9 HYPOTHYROIDISM 04/23/2012 YAMILETH LAURENT MD 244.9 HYPOTHYROIDISM 04/23/2012 YAMILETH LAURENT MD 244.9 HYPOTHYROIDISM 04/23/2012 LOPEZ DOCLEOA K 244.9 HYPOTHYROIDISM 04/23/2012 LOPEZ DO, JESSE K 244.9 HYPOTHYROIDISM 04/23/2012 LOPEZ DO, JESSE K 244.9 HYPOTHYROIDISM 04/23/2012 LOPEZ DO, JESSE K 244.9 HYPOTHYROIDISM 04/23/2012 YAMILETH LAURENT MD 244.9 HYPOTHYROIDISM 04/23/2012 YAMILETH LAURENT MD 244.9 HYPOTHYROIDISM 04/23/2012 LOPEZ DO, JESSE K 244.9 HYPOTHYROIDISM 04/23/2012 YAMILETH LAURENT MD 244.9 HYPOTHYROIDISM 04/23/2012 ZENA UMANZOR APRN 244.9 HYPOTHYROIDISM 04/23/2012 ZENA UMANZOR APRN 244.9 HYPOTHYROIDISM 04/23/2012 ZENA UMANZOR APRN 244.9 HYPOTHYROIDISM 04/23/2012 ZENA UMANZOR APRN 244.9 HYPOTHYROIDISM 04/23/2012 LOPEZ DO, JESSE K 244.9 HYPOTHYROIDISM 04/23/2012 NOÉ SALES PRODUCER, ZENA T 244.9 HYPOTHYROIDISM 04/23/2012 NOÉ SALES PRODUCER, ZENA T 244.9 HYPOTHYROIDISM 04/23/2012 NOÉ SALES PRODUCER, ZENA T 244.9 HYPOTHYROIDISM 04/23/2012 NOÉ SALES PRODUCER, ZENA T 244.9 HYPOTHYROIDISM 04/23/2012 NOÉ SALES PRODUCER, ZENA T 244.9 HYPOTHYROIDISM 04/23/2012 LOPEZ DO, JESSE K 244.9 HYPOTHYROIDISM 04/23/2012 LOPEZ DO, JESSE K 244.9 HYPOTHYROIDISM 04/23/2012 NOÉ SALES PRODUCER, ZENA T 244.9 HYPOTHYROIDISM 04/23/2012 NOÉ SALES PRODUCER, ZENA T 244.9 HYPOTHYROIDISM 04/23/2012 ANASTASIIA DAVIS, YAMILETH 244.9 HYPOTHYROIDISM 04/23/2012 NOÉ NETTLES, ZENA T 244.9 HYPOTHYROIDISM 04/23/2012 NOÉ SALES PRODUCER, ZENA T 244.9 HYPOTHYROIDISM 04/23/2012 NOÉ NETTLES, ZENA T 244.9 HYPOTHYROIDISM 04/23/2012 ZENA UMANZOR APRN T 244.9 HYPOTHYROIDISM 04/23/2012 NOÉ NETTLES, ZENA T 244.9 HYPOTHYROIDISM 04/23/2012 NOÉ SALES PRODUCER, ZENA T 244.9 HYPOTHYROIDISM 04/23/2012 LOPEZ DO, JESSE K 244.9 HYPOTHYROIDISM 04/23/2012 NOÉ SALES PRODUCER, ZENA T 244.9 HYPOTHYROIDISM 04/23/2012 NOÉ NETTLES ZENA T 244.9 HYPOTHYROIDISM 04/23/2012 LOPEZ DO, JESSE K 244.9 HYPOTHYROIDISM 04/23/2012 LOPEZ DO, JESSE K 244.9 HYPOTHYROIDISM 04/23/2012 NOÉ NETTLES ZENA T 244.9 HYPOTHYROIDISM 04/23/2012 FAM DAVIS, KENDALL 244.9 UNSPECIFIED ACQUIRED HYPOTHYROIDISM 04/24/2012 Ot 782.3 EDEMA 04/24/2012 Ot 786.05 SHORTNESS OF BREATH 05/14/2012 Ot 041.89 BACTERIAL INFECTION DUE TO OTHER SPECIFI 05/14/2012 Ot 278.01 MORBID OBESITY 05/14/2012 Ot 305.1 TOBACCO USE DISORDER 05/14/2012 Ot 540.9 ACUTE APPENDICITIS NOS 05/14/2012 Ot 599.0 URIN TRACT INFECTION NOS 05/14/2012 Ot 620.2 OVARIAN CYST NEC/NOS 05/14/2012 Ot 785.6 ENLARGEMENT LYMPH NODES 05/14/2012 Ot 789.59 OTHER ASCITES 05/14/2012 Ot 790.6 ABN BLOOD CHEMISTRY NEC 05/14/2012 Ot 799.02 HYPOXEMIA 05/14/2012 Ot E935.4 ADV EFF AROM ANALGSC NEC 05/14/2012 Ot V85.42 BODY MASS INDEX 45.0-49.9, ADULT 06/30/2012 Ot 300.4 DYSTHYMIC DISORDER 06/30/2012 Ot 416.8 CHR PULMON HEART DIS NEC 06/30/2012 Ot 428.30 UNSPEC DIASTOLIC HRT FAILURE 06/30/2012 Ot 724.5 BACKACHE NOS 06/30/2012 Ot 729.81 SWELLING OF LIMB 06/30/2012 Ot 785.0 TACHYCARDIA NOS 06/30/2012 Ot 786.09 RESPIRATORY ABNORM NEC 06/30/2012 Ot V46.2 SUPPLEMENTAL OXYGEN 06/30/2012 Ot V58.66 LONG-TERM ( CURRENT) USE OF ASPIRIN 06/30/2012 Ot V58.69 OTH MED,LT, CURRENT USE 10/21/2012 JESSE LOPEZ DO 338.4 CHRONIC PAIN SYNDROME 10/21/2012 338.4 CHRONIC PAIN SYNDROME 10/21/2012 338.4 CHRONIC PAIN SYNDROME 10/21/2012 338.4 CHRONIC PAIN SYNDROME 10/21/2012 338.4 CHRONIC PAIN SYNDROME 10/21/2012 338.4 CHRONIC PAIN SYNDROME 10/21/2012 338.4 CHRONIC PAIN SYNDROME 10/21/2012 338.4 CHRONIC PAIN SYNDROME 10/21/2012 338.4 CHRONIC PAIN SYNDROME 10/21/2012 338.4 CHRONIC PAIN SYNDROME 10/21/2012 338.4 CHRONIC PAIN SYNDROME 10/21/2012 338.4 CHRONIC PAIN SYNDROME 10/21/2012 338.4 CHRONIC PAIN SYNDROME 10/21/2012 338.4 CHRONIC PAIN SYNDROME 10/21/2012 338.4 CHRONIC PAIN SYNDROME 10/21/2012 338.4 CHRONIC PAIN SYNDROME 10/21/2012 338.4 CHRONIC PAIN SYNDROME 10/21/2012 338.4 CHRONIC PAIN SYNDROME 10/21/2012 338.4 CHRONIC PAIN SYNDROME 10/21/2012 338.4 CHRONIC PAIN SYNDROME 10/21/2012 338.4 CHRONIC PAIN SYNDROME 10/21/2012 338.4 CHRONIC PAIN SYNDROME 10/21/2012 338.4 CHRONIC PAIN SYNDROME 10/21/2012 JESSE LOPEZ DO 338.4 CHRONIC PAIN SYNDROME 10/21/2012 ABHISHEK TADEO APRN 338.4 CHRONIC PAIN SYNDROME 10/21/2012 JUDY DAVIS, SARAH Law 338.4 CHRONIC PAIN SYNDROME 10/21/2012 JUDY DAVIS, SARAH Law 338.4 CHRONIC PAIN SYNDROME 10/21/2012 SARAH KIM MD 338.4 CHRONIC PAIN SYNDROME 10/21/2012 SARAH KIM MD 338.4 CHRONIC PAIN SYNDROME 10/21/2012 SARAH KIM MD 338.4 CHRONIC PAIN SYNDROME 10/21/2012 YAMILETH LAURENT MD 338.4 CHRONIC PAIN SYNDROME 10/21/2012 YAMILETH LAURENT MD 338.4 CHRONIC PAIN SYNDROME 10/21/2012 LOPEZ DO, JESSE K 338.4 CHRONIC PAIN SYNDROME 10/21/2012 LOPEZ DO, JESSE K 338.4 CHRONIC PAIN SYNDROME 10/21/2012 LOPEZ DO, JESSE K 338.4 CHRONIC PAIN SYNDROME 10/21/2012 LOPEZ DO, JESSE K 338.4 CHRONIC PAIN SYNDROME 10/21/2012 YAMILETH LAURENT MD 338.4 CHRONIC PAIN SYNDROME 10/21/2012 YAMILETH LAURENT MD 338.4 CHRONIC PAIN SYNDROME 10/21/2012 LOPEZ DO, JESSE K 338.4 CHRONIC PAIN SYNDROME 10/21/2012 YAMILETH LAURENT MD 338.4 CHRONIC PAIN SYNDROME 10/21/2012 ZENA UMANZOR APRN T 338.4 CHRONIC PAIN SYNDROME 10/21/2012 ZENA UMANZOR APRN T 338.4 CHRONIC PAIN SYNDROME 10/21/2012 ZENA UMANZOR APRN T 338.4 CHRONIC PAIN SYNDROME 10/21/2012 ZENA UMANZOR APRN T 338.4 CHRONIC PAIN SYNDROME 10/21/2012 LOPEZ DO, JESSE K 338.4 CHRONIC PAIN SYNDROME 10/21/2012 ZENA UMANZOR APRN T 338.4 CHRONIC PAIN SYNDROME 10/21/2012 ZENA UMANZOR APRN T 338.4 CHRONIC PAIN SYNDROME 10/21/2012 ZENA UMANZOR APRN T 338.4 CHRONIC PAIN SYNDROME 10/21/2012 ZENA UMANZOR APRN T 338.4 CHRONIC PAIN SYNDROME 10/21/2012 ZENA UMANZOR APRN T 338.4 CHRONIC PAIN SYNDROME 10/21/2012 LOPEZ DO, JESSE K 338.4 CHRONIC PAIN SYNDROME 10/21/2012 LOPEZ DO, JESSE K 338.4 CHRONIC PAIN SYNDROME 10/21/2012 ZENA UMANZOR APRN T 338.4 CHRONIC PAIN SYNDROME 10/21/2012 ZENA UMANZOR APRN T 338.4 CHRONIC PAIN SYNDROME 10/21/2012 YAMILETH LAURENT MD 338.4 CHRONIC PAIN SYNDROME 10/21/2012 NOÉ SALES PRODUCER, ZENA T 338.4 CHRONIC PAIN SYNDROME 10/21/2012 NOÉ SALES PRODUCER, ZENA T 338.4 CHRONIC PAIN SYNDROME 10/21/2012 NOÉ SALES PRODUCER, ZENA T 338.4 CHRONIC PAIN SYNDROME 10/21/2012 NOÉ SALES PRODUCER, ZENA T 338.4 CHRONIC PAIN SYNDROME 10/21/2012 NOÉ SALES PRODUCER, ZENA T 338.4 CHRONIC PAIN SYNDROME 10/21/2012 NOÉ SALES PRODUCER, ZENA T 338.4 CHRONIC PAIN SYNDROME 10/21/2012 LOPEZ DO, JESSE K 338.4 CHRONIC PAIN SYNDROME 10/21/2012 NOÉ SALES PRODUCER, ZENA T 338.4 CHRONIC PAIN SYNDROME 10/21/2012 NOÉ SALES PRODUCER, ZENA T 338.4 CHRONIC PAIN SYNDROME 10/21/2012 LOPEZ DO, JESSE K 338.4 CHRONIC PAIN SYNDROME 10/21/2012 LOPEZ DO, JESSE K 338.4 CHRONIC PAIN SYNDROME 10/21/2012 NOÉ SALES PRODUCER, ZENA T 338.4 CHRONIC PAIN SYNDROME 11/18/2012 466.0 BRONCHITIS, ACUTE 11/18/2012 466.0 Bronchitis, Acute 11/18/2012 466.0 Bronchitis, Acute 11/18/2012 466.0 Bronchitis, Acute 11/18/2012 466.0 Bronchitis, Acute 11/18/2012 466.0 Bronchitis, Acute 11/18/2012 466.0 Bronchitis, Acute 11/18/2012 466.0 Bronchitis, Acute 11/18/2012 466.0 Bronchitis, Acute 11/18/2012 466.0 Bronchitis, Acute 11/18/2012 466.0 Bronchitis, Acute 11/18/2012 466.0 Bronchitis, Acute 11/18/2012 466.0 Bronchitis, Acute 11/18/2012 466.0 Bronchitis, Acute 11/18/2012 466.0 Bronchitis, Acute 11/18/2012 466.0 Bronchitis, Acute 11/18/2012 466.0 Bronchitis, Acute 11/18/2012 466.0 Bronchitis, Acute 11/18/2012 466.0 Bronchitis, Acute 11/18/2012 466.0 Bronchitis, Acute 11/18/2012 466.0 Bronchitis, Acute 11/18/2012 466.0 Bronchitis, Acute 11/18/2012 LOPEZ DO, JESSE K 466.0 Bronchitis, Acute 11/18/2012 CARLYLE NETTLES, ABHISHEK Soto 466.0 Bronchitis, Acute 11/18/2012 JUDY DAVIS, SARAH M 466.0 Bronchitis, Acute 11/18/2012 JUDY DAVIS, SARAH M 466.0 Bronchitis, Acute 11/18/2012 JUDY DAVIS, SARAH M 466.0 Bronchitis, Acute 11/18/2012 JUDY DAVIS, SARAH M 466.0 Bronchitis, Acute 11/18/2012 JUDY DAVIS, SARAH M 466.0 Bronchitis, Acute 11/18/2012 YAMILETH LAURENT MD 466.0 Bronchitis, Acute 11/18/2012 YAMILETH LAURENT MD 466.0 Bronchitis, Acute 11/18/2012 LOPEZ DO, JESSE K 466.0 Bronchitis, Acute 11/18/2012 LOPEZ DO, JESSE K 466.0 Bronchitis, Acute 11/18/2012 LOPEZ DO, JESSE K 466.0 Bronchitis, Acute 11/18/2012 LOPEZ DO, JESSE K 466.0 Bronchitis, Acute 11/18/2012 YAMILETH LAURENT MD 466.0 Bronchitis, Acute 11/18/2012 YAMILETH LAURENT MD 466.0 Bronchitis, Acute 11/18/2012 LOPEZ DO, JESSE K 466.0 Bronchitis, Acute 11/18/2012 YAMILETH LAURENT MD 466.0 Bronchitis, Acute 11/18/2012 NOÉ NETTLES ZENA T 466.0 Bronchitis, Acute 11/18/2012 NOÉ NETTLES ZENA T 466.0 Bronchitis, Acute 11/18/2012 NOÉ NETTLES ZENA T 466.0 Bronchitis, Acute 11/18/2012 NOÉ NETTLES ZENA T 466.0 Bronchitis, Acute 11/18/2012 LOPEZ DO, JESSE K 466.0 Bronchitis, Acute 11/18/2012 NOÉ NETTLES ZENA T 466.0 Bronchitis, Acute 11/18/2012 NOÉ NETTLES ZENA T 466.0 Bronchitis, Acute 11/18/2012 NOÉ NETTLES EZNA T 466.0 Bronchitis, Acute 11/18/2012 NOÉ NETTLES ZENA T 466.0 Bronchitis, Acute 11/18/2012 NOÉ NETTLES ZENA T 466.0 Bronchitis, Acute 11/18/2012 LOPEZ DO, JESSE K 466.0 Bronchitis, Acute 11/18/2012 LOPEZ DO, JESSE K 466.0 Bronchitis, Acute 11/18/2012 NOÉ NETTLES ZENA T 466.0 Bronchitis, Acute 11/18/2012 NOÉ NETTLES ZENA T 466.0 Bronchitis, Acute 11/18/2012 YAMILETH LAURENT MD 466.0 Bronchitis, Acute 11/18/2012 ONÉ SALES PRODUCER, ZENA T 466.0 Bronchitis, Acute 11/18/2012 NOÉ SALES PRODUCER, ZENA T 466.0 Bronchitis, Acute 11/18/2012 NOÉ SALES PRODUCER, ZENA T 466.0 Bronchitis, Acute 11/18/2012 NOÉ SALES PRODUCER, ZENA T 466.0 Bronchitis, Acute 11/18/2012 NOÉ SALES PRODUCER, ZENA T 466.0 Bronchitis, Acute 11/18/2012 NOÉ SALES PRODUCER, ZENA T 466.0 Bronchitis, Acute 11/18/2012 LOPEZ DO, JESSE K 466.0 Bronchitis, Acute 11/18/2012 NOÉ SALES PRODUCER, ZENA T 466.0 Bronchitis, Acute 11/18/2012 NOÉ SALES PRODUCER, ZENA T 466.0 Bronchitis, Acute 11/18/2012 LOPEZ DO, JESSE K 466.0 Bronchitis, Acute 11/18/2012 LOPEZ DO, JESSE K 466.0 Bronchitis, Acute 11/18/2012 NOÉ SALES PRODUCER, ZENA T 466.0 Bronchitis, Acute 12/08/2012 Ot 276.8 HYPOPOTASSEMIA 12/08/2012 Ot 278.01 MORBID OBESITY 12/08/2012 Ot 305.1 TOBACCO USE DISORDER 12/08/2012 Ot 338.29 OTHER CHRONIC PAIN 12/08/2012 Ot 486 PNEUMONIA, ORGANISM NOS 12/08/2012 Ot 491.21 OBSTR CHRONIC BRONCHITIS, W (ACUTE) EXAC 12/08/2012 Ot 571.8 CHRONIC LIVER DIS NEC 12/08/2012 Ot 724.5 BACKACHE NOS 12/08/2012 Ot 729.1 MYALGIA AND MYOSITIS NOS 12/08/2012 Ot 787.20 DYSPHAGIA, UNSPECIFIED 12/08/2012 Ot 799.02 HYPOXEMIA 12/08/2012 Ot V85.42 BODY MASS INDEX 45.0-49.9, ADULT 12/10/2012 Ot 787.20 DYSPHAGIA, UNSPECIFIED 12/10/2012 Ot V57.3 CARE INVOLVING SPEECH-LANGUAGE THERAPY 12/22/2012 Ot 276.1 HYPOSMOLALITY 12/22/2012 Ot 278.01 MORBID OBESITY 12/22/2012 Ot 278.03 OBESITY HYPOVENTILATION SYNDROME 12/22/2012 Ot 305.1 TOBACCO USE DISORDER 12/22/2012 Ot 327.23 OBSTRUCTIVE SLEEP APNEA (ADULT) (PEDIATR 12/22/2012 Ot 416.8 CHR PULMON HEART DIS NEC 12/22/2012 Ot 428.0 CONGESTIVE HEART FAILURE NOS 12/22/2012 Ot 428.33 ACUTE CHRONIC DIASTOLIC HRT FAILURE 12/22/2012 Ot 491.21 OBSTR CHRONIC BRONCHITIS, W (ACUTE) EXAC 12/22/2012 Ot 724.2 LUMBAGO 12/22/2012 Ot 785.6 ENLARGEMENT LYMPH NODES 12/22/2012 Ot 799.02 HYPOXEMIA 12/22/2012 Ot V85.43 BODY MASS INDEX 50.0-59.9, ADULT 12/28/2012 Ot 276.51 DEHYDRATION 12/28/2012 Ot 278.01 MORBID OBESITY 12/28/2012 Ot 278.03 OBESITY HYPOVENTILATION SYNDROME 12/28/2012 Ot 305.1 TOBACCO USE DISORDER 12/28/2012 Ot 327.23 OBSTRUCTIVE SLEEP APNEA (ADULT) (PEDIATR 12/28/2012 Ot 428.0 CONGESTIVE HEART FAILURE NOS 12/28/2012 Ot 428.30 UNSPEC DIASTOLIC HRT FAILURE 12/28/2012 Ot 496 CHR AIRWAY OBSTRUCT NEC 12/28/2012 Ot 558.9 NONINF GASTROENTERIT NEC 12/28/2012 Ot 571.8 CHRONIC LIVER DIS NEC 12/28/2012 Ot 593.9 RENAL URETERAL DIS NOS 12/28/2012 Ot 729.1 MYALGIA AND MYOSITIS NOS 12/28/2012 Ot 790.29 OTHER ABNORMAL GLUCOSE 12/28/2012 Ot 799.02 HYPOXEMIA 12/28/2012 Ot V85.43 BODY MASS INDEX 50.0-59.9, ADULT 12/31/2012 Ot 244.9 HYPOTHYROIDISM NOS 12/31/2012 Ot 278.01 MORBID OBESITY 12/31/2012 Ot 338.4 CHRONIC PAIN SYNDROME 12/31/2012 Ot 496 CHR AIRWAY OBSTRUCT NEC 12/31/2012 Ot 965.09 POISONING- OPIATES NEC 12/31/2012 Ot E849.0 ACCIDENT IN HOME 12/31/2012 Ot E850.2 ACC POISON- OPIATES NEC 12/31/2012 Ot V85.42 BODY MASS INDEX 45.0-49.9, ADULT 01/06/2013 135 SARCOIDOSIS 01/06/2013 V65.42 COUNSELING - SMOKING CESSATION 01/06/2013 V77.1 DIABETES SCREENING 01/06/2013 135 SARCOIDOSIS 01/06/2013 V65.42 COUNSELING - SMOKING CESSATION 01/06/2013 V77.1 DIABETES SCREENING 01/06/2013 135 SARCOIDOSIS 01/06/2013 V65.42 COUNSELING - SMOKING CESSATION 01/06/2013 V77.1 DIABETES SCREENING 01/06/2013 135 SARCOIDOSIS 01/06/2013 V65.42 COUNSELING - SMOKING CESSATION 01/06/2013 V77.1 DIABETES SCREENING 01/06/2013 135 SARCOIDOSIS 01/06/2013 V65.42 COUNSELING - SMOKING CESSATION 01/06/2013 V77.1 DIABETES SCREENING 01/06/2013 135 SARCOIDOSIS 01/06/2013 V65.42 COUNSELING - SMOKING CESSATION 01/06/2013 V77.1 DIABETES SCREENING 01/06/2013 135 SARCOIDOSIS 01/06/2013 V65.42 COUNSELING - SMOKING CESSATION 01/06/2013 V77.1 DIABETES SCREENING 01/06/2013 135 SARCOIDOSIS 01/06/2013 V65.42 COUNSELING - SMOKING CESSATION 01/06/2013 V77.1 DIABETES SCREENING 01/06/2013 135 SARCOIDOSIS 01/06/2013 V65.42 COUNSELING - SMOKING CESSATION 01/06/2013 V77.1 DIABETES SCREENING 01/06/2013 135 SARCOIDOSIS 01/06/2013 V65.42 COUNSELING - SMOKING CESSATION 01/06/2013 V77.1 DIABETES SCREENING 01/06/2013 135 SARCOIDOSIS 01/06/2013 V65.42 COUNSELING - SMOKING CESSATION 01/06/2013 V77.1 DIABETES SCREENING 01/06/2013 135 SARCOIDOSIS 01/06/2013 V65.42 COUNSELING - SMOKING CESSATION 01/06/2013 V77.1 DIABETES SCREENING 01/06/2013 135 SARCOIDOSIS 01/06/2013 V65.42 COUNSELING - SMOKING CESSATION 01/06/2013 V77.1 DIABETES SCREENING 01/06/2013 135 SARCOIDOSIS 01/06/2013 V65.42 COUNSELING - SMOKING CESSATION 01/06/2013 V77.1 DIABETES SCREENING 01/06/2013 135 SARCOIDOSIS 01/06/2013 V65.42 COUNSELING - SMOKING CESSATION 01/06/2013 V77.1 DIABETES SCREENING 01/06/2013 135 SARCOIDOSIS 01/06/2013 V65.42 COUNSELING - SMOKING CESSATION 01/06/2013 V77.1 DIABETES SCREENING 01/06/2013 135 SARCOIDOSIS 01/06/2013 V65.42 COUNSELING - SMOKING CESSATION 01/06/2013 V77.1 DIABETES SCREENING 01/06/2013 135 SARCOIDOSIS 01/06/2013 V65.42 COUNSELING - SMOKING CESSATION 01/06/2013 V77.1 DIABETES SCREENING 01/06/2013 JESSE LOPEZ DO 135 SARCOIDOSIS 01/06/2013 JESSE LOPEZ DO V65.42 COUNSELING - SMOKING CESSATION 01/06/2013 LOPEZ DO JESSE K V77.1 DIABETES SCREENING 01/06/2013 ABHISHEK TADEO APRN R 135 SARCOIDOSIS 01/06/2013 ABHISHEK TADEO APRN V65.42 COUNSELING - SMOKING CESSATION 01/06/2013 ABHISHEK TADEO APRN V77.1 DIABETES SCREENING 01/06/2013 SARAH KIM MD 135 SARCOIDOSIS 01/06/2013 SARAH KMI MD V65.42 COUNSELING - SMOKING CESSATION 01/06/2013 SARAH KIM MD V77.1 DIABETES SCREENING 01/06/2013 SARAH KIM MD 135 SARCOIDOSIS 01/06/2013 SARAH KIM MD V65.42 COUNSELING - SMOKING CESSATION 01/06/2013 SARAH KIM MD V77.1 DIABETES SCREENING 01/06/2013 SARAH KIM MD 135 SARCOIDOSIS 01/06/2013 SARAH KIM MD V65.42 COUNSELING - SMOKING CESSATION 01/06/2013 SARAH KIM MD V77.1 DIABETES SCREENING 01/06/2013 SARAH KIM MD 135 SARCOIDOSIS 01/06/2013 SARAH KIM MD V65.42 COUNSELING - SMOKING CESSATION 01/06/2013 SARAH KIM MD V77.1 DIABETES SCREENING 01/06/2013 SARAH KIM MD 135 SARCOIDOSIS 01/06/2013 SARAH KIM MD V65.42 COUNSELING - SMOKING CESSATION 01/06/2013 SARAH KIM MD V77.1 DIABETES SCREENING 01/06/2013 YAMILETH LAURENT MD SARCOIDOSIS 01/06/2013 YAMILETH LAURENT MD V65.42 COUNSELING - SMOKING CESSATION 01/06/2013 YAMILETH LAURENT MD V77.1 DIABETES SCREENING 01/06/2013 YAMILETH LAURENT MD SARCOIDOSIS 01/06/2013 YAMILETH LAURENT MD V65.42 COUNSELING - SMOKING CESSATION 01/06/2013 YAMILETH LAURENT MD V77.1 DIABETES SCREENING 01/06/2013 LOPEZ DO JESSE K 135 SARCOIDOSIS 01/06/2013 LOPEZ DO JESSE K V65.42 COUNSELING - SMOKING CESSATION 01/06/2013 JOHN DO, JESSE K V77.1 DIABETES SCREENING 01/06/2013 LOPEZ DO, JESSE K 135 SARCOIDOSIS 01/06/2013 LOPEZ DO, JESSE K V65.42 COUNSELING - SMOKING CESSATION 01/06/2013 LOPEZ DO, JESSE K V77.1 DIABETES SCREENING 01/06/2013 LOPEZ DO, JESSE K 135 SARCOIDOSIS 01/06/2013 LOPEZ DO, JESSE K V65.42 COUNSELING - SMOKING CESSATION 01/06/2013 LOPEZ DO, JESSE K V77.1 DIABETES SCREENING 01/06/2013 LOPEZ DO, JESSE K 135 SARCOIDOSIS 01/06/2013 LOPEZ DO, JESSE K V65.42 COUNSELING - SMOKING CESSATION 01/06/2013 LOPEZ DO, JESSE K V77.1 DIABETES SCREENING 01/06/2013 YAMILETH LAURENT MD SARCOIDOSIS 01/06/2013 YAMILETH LAURENT MD V65.42 COUNSELING - SMOKING CESSATION 01/06/2013 YAMILETH LAURENT MD V77.1 DIABETES SCREENING 01/06/2013 YAMILETH LAURENT MD SARCOIDOSIS 01/06/2013 YAMILETH LAURENT MD V65.42 COUNSELING - SMOKING CESSATION 01/06/2013 YAMILETH LAURENT MD V77.1 DIABETES SCREENING 01/06/2013 LOPEZ DO, JESSE K 135 SARCOIDOSIS 01/06/2013 LOPEZ DO, JESSE K V65.42 COUNSELING - SMOKING CESSATION 01/06/2013 LOPEZ , JESSE K V77.1 DIABETES SCREENING 01/06/2013 YAMILETH LAURENT MD SARCOIDOSIS 01/06/2013 YAMILETH LAURENT MD V65.42 COUNSELING - SMOKING CESSATION 01/06/2013 YAMILETH LAURENT MD V77.1 DIABETES SCREENING 01/06/2013 ZENA UMANZOR APRN 135 SARCOIDOSIS 01/06/2013 ZENA UMANZOR APRN V65.42 COUNSELING - SMOKING CESSATION 01/06/2013 ZENA UMANZOR APRN V77.1 DIABETES SCREENING 01/06/2013 ZENA UMANZOR APRN 135 SARCOIDOSIS 01/06/2013 ZENA UMANZOR APRN V65.42 COUNSELING - SMOKING CESSATION 01/06/2013 ZENA UMANZOR APRN V77.1 DIABETES SCREENING 01/06/2013 ZENA UMANZOR APRN 135 SARCOIDOSIS 01/06/2013 ZENA UMANZOR APRN V65.42 COUNSELING - SMOKING CESSATION 01/06/2013 ZENA UMANZOR APRN V77.1 DIABETES SCREENING 01/06/2013 ZENA UMANZOR APRN 135 SARCOIDOSIS 01/06/2013 NOÉ SALES PRODUCER, ZENA T V65.42 COUNSELING - SMOKING CESSATION 01/06/2013 NOÉ SALES PRODUCER, ZENA T V77.1 DIABETES SCREENING 01/06/2013 LOPEZ DO, JESSE K 135 SARCOIDOSIS 01/06/2013 LOPEZ DO, JESSE K V65.42 COUNSELING - SMOKING CESSATION 01/06/2013 LOPEZ DO, JESSE K V77.1 DIABETES SCREENING 01/06/2013 NOÉ SALES PRODUCERZENA T 135 SARCOIDOSIS 01/06/2013 NOÉ SALES PRODUCERZENA V65.42 COUNSELING - SMOKING CESSATION 01/06/2013 NOÉ SALES PRODUCERZENA V77.1 DIABETES SCREENING 01/06/2013 NOÉ SALES PRODUCER, ZENA Shrestha 135 SARCOIDOSIS 01/06/2013 NOÉ SALES PRODUCERZENA V65.42 COUNSELING - SMOKING CESSATION 01/06/2013 NOÉ SALES PRODUCERZENA V77.1 DIABETES SCREENING 01/06/2013 NOÉ SALES PRODUCERZENA 135 SARCOIDOSIS 01/06/2013 NOÉ SALES PRODUCERZENA V65.42 COUNSELING - SMOKING CESSATION 01/06/2013 NOÉ SALES PRODUCERZENA V77.1 DIABETES SCREENING 01/06/2013 NOÉ SALES PRODUCERZENA 135 SARCOIDOSIS 01/06/2013 NOÉ SALES PRODUCERZENA V65.42 COUNSELING - SMOKING CESSATION 01/06/2013 NOÉ SALES PRODUCERZENA V77.1 DIABETES SCREENING 01/06/2013 NOÉ SALES PRODUCERZENA 135 SARCOIDOSIS 01/06/2013 NOÉ SALES PRODUCERZENA V65.42 COUNSELING - SMOKING CESSATION 01/06/2013 NOÉ SALES PRODUCERZENA V77.1 DIABETES SCREENING 01/06/2013 LOPEZ DO, JESSE K 135 SARCOIDOSIS 01/06/2013 LOPEZ DO, JESSE K V65.42 COUNSELING - SMOKING CESSATION 01/06/2013 LOPEZ DO, JESSE K V77.1 DIABETES SCREENING 01/06/2013 LOPEZ DO, JESSE K 135 SARCOIDOSIS 01/06/2013 LOPEZ DO, JESSE K V65.42 COUNSELING - SMOKING CESSATION 01/06/2013 LOPEZ DO, JESSE K V77.1 DIABETES SCREENING 01/06/2013 NOÉ SALES PRODUCERZENA T 135 SARCOIDOSIS 01/06/2013 NOÉ SALES PRODUCERZENA T V65.42 COUNSELING - SMOKING CESSATION 01/06/2013 NOÉ SALES PRODUCERZENA V77.1 DIABETES SCREENING 01/06/2013 NOÉ SALES PRODUCERZENA T 135 SARCOIDOSIS 01/06/2013 NOÉ SALES PRODUCERZENA Treviño T V65.42 COUNSELING - SMOKING CESSATION 01/06/2013 NOÉ WHITENZENA T V77.1 DIABETES SCREENING 01/06/2013 YAMILETH LAURENT MD 135 SARCOIDOSIS 01/06/2013 YAMILETH LAURENT MD V65.42 COUNSELING - SMOKING CESSATION 01/06/2013 YAMILETH LAURENT MD V77.1 DIABETES SCREENING 01/06/2013 ZENA UMANZOR APRN T 135 SARCOIDOSIS 01/06/2013 NOÉ SALES PRODUCERZENA T V65.42 COUNSELING - SMOKING CESSATION 01/06/2013 NOÉ SALES PRODUCERZENA T V77.1 DIABETES SCREENING 01/06/2013 NOÉ SALES PRODUCERZENA T 135 SARCOIDOSIS 01/06/2013 NOÉ SALES PRODUCERZENA T V65.42 COUNSELING - SMOKING CESSATION 01/06/2013 ZENA UMANZOR APRN T V77.1 DIABETES SCREENING 01/06/2013 ZENA UMANZOR APRN T 135 SARCOIDOSIS 01/06/2013 ZENA UMANZOR APRN V65.42 COUNSELING - SMOKING CESSATION 01/06/2013 ZENA UMANZOR APRN T V77.1 DIABETES SCREENING 01/06/2013 NOÉ WHITENZENA T 135 SARCOIDOSIS 01/06/2013 NOÉ SALES PRODUCERZENA T V65.42 COUNSELING - SMOKING CESSATION 01/06/2013 ZENA UMANZOR APRN T V77.1 DIABETES SCREENING 01/06/2013 ZENA UMANZOR APRN T 135 SARCOIDOSIS 01/06/2013 ZENA UMANZOR APRN T V65.42 COUNSELING - SMOKING CESSATION 01/06/2013 ZENA UMANZOR APRN T V77.1 DIABETES SCREENING 01/06/2013 ZENA UMANZOR APRN T 135 SARCOIDOSIS 01/06/2013 ZENA UMANZOR APRN T V65.42 COUNSELING - SMOKING CESSATION 01/06/2013 ZENA UMANZOR APRN T V77.1 DIABETES SCREENING 01/06/2013 LOPEZ DO, JESSE K 135 SARCOIDOSIS 01/06/2013 LOPEZ DO, JESSE K V65.42 COUNSELING - SMOKING CESSATION 01/06/2013 LOPEZ DO, JESSE K V77.1 DIABETES SCREENING 01/06/2013 ZENA UMANZOR APRN T 135 SARCOIDOSIS 01/06/2013 ZENA UMANZOR APRN T V65.42 COUNSELING - SMOKING CESSATION 01/06/2013 ZENA UMANZOR APRN T V77.1 DIABETES SCREENING 01/06/2013 ZENA UMANZOR APRN T 135 SARCOIDOSIS 01/06/2013 ZENA UMANZOR APRN T V65.42 COUNSELING - SMOKING CESSATION 01/06/2013 ZENA UMANZOR APRN V77.1 DIABETES SCREENING 01/06/2013 LOPEZ DO, JESSE K 135 SARCOIDOSIS 01/06/2013 LOPEZ DO, JESSE K V65.42 COUNSELING - SMOKING CESSATION 01/06/2013 LOPEZ DO, JESSE K V77.1 DIABETES SCREENING 01/06/2013 LOPEZ DO, JESSE K 135 SARCOIDOSIS 01/06/2013 LOPEZ DO, JESSE K V65.42 COUNSELING - SMOKING CESSATION 01/06/2013 LOPEZ DO, JESSE K V77.1 DIABETES SCREENING 01/06/2013 ZENA UMANZOR APRN 135 SARCOIDOSIS 01/06/2013 ZENA UMANZOR APRN V65.42 COUNSELING - SMOKING CESSATION 01/06/2013 ZENA UMANZOR APRN V77.1 DIABETES SCREENING 01/20/2013 276.1 HYPOSMOLALITY AND/OR HYPONATREMIA 01/20/2013 276.8 HYPOKALEMIA 01/20/2013 276.1 HYPOSMOLALITY AND/OR HYPONATREMIA 01/20/2013 276.8 HYPOKALEMIA 01/20/2013 276.1 HYPOSMOLALITY AND/OR HYPONATREMIA 01/20/2013 276.8 HYPOKALEMIA 01/20/2013 276.1 HYPOSMOLALITY AND/OR HYPONATREMIA 01/20/2013 276.8 HYPOKALEMIA 01/20/2013 276.1 HYPOSMOLALITY AND/OR HYPONATREMIA 01/20/2013 276.8 HYPOKALEMIA 01/20/2013 276.1 HYPOSMOLALITY AND/OR HYPONATREMIA 01/20/2013 276.8 HYPOKALEMIA 01/20/2013 276.1 HYPOSMOLALITY AND/OR HYPONATREMIA 01/20/2013 276.8 HYPOKALEMIA 01/20/2013 276.1 HYPOSMOLALITY AND/OR HYPONATREMIA 01/20/2013 276.8 HYPOKALEMIA 01/20/2013 276.1 HYPOSMOLALITY AND/OR HYPONATREMIA 01/20/2013 276.8 HYPOKALEMIA 01/20/2013 276.1 HYPOSMOLALITY AND/OR HYPONATREMIA 01/20/2013 276.8 HYPOKALEMIA 01/20/2013 276.1 HYPOSMOLALITY AND/OR HYPONATREMIA 01/20/2013 276.8 HYPOKALEMIA 01/20/2013 276.1 HYPOSMOLALITY AND/OR HYPONATREMIA 01/20/2013 276.8 HYPOKALEMIA 01/20/2013 276.1 HYPOSMOLALITY AND/OR HYPONATREMIA 01/20/2013 276.8 HYPOKALEMIA 01/20/2013 276.1 HYPOSMOLALITY AND/OR HYPONATREMIA 01/20/2013 276.8 HYPOKALEMIA 01/20/2013 276.1 HYPOSMOLALITY AND/OR HYPONATREMIA 01/20/2013 276.8 HYPOKALEMIA 01/20/2013 276.1 HYPOSMOLALITY AND/OR HYPONATREMIA 01/20/2013 276.8 HYPOKALEMIA 01/20/2013 276.1 HYPOSMOLALITY AND/OR HYPONATREMIA 01/20/2013 276.8 HYPOKALEMIA 01/20/2013 LOPEZ DO, JESSE K 276.1 HYPOSMOLALITY AND/OR HYPONATREMIA 01/20/2013 LOPEZ DO, JESSE K 276.8 HYPOKALEMIA 01/20/2013 CARLYLE NETTLES ABHISHEK R 276.1 HYPOSMOLALITY AND/OR HYPONATREMIA 01/20/2013 CARLYLE NETTLES BAHISHEK R 276.8 HYPOKALEMIA 01/20/2013 SARAH KIM MD 276.1 HYPOSMOLALITY AND/OR HYPONATREMIA 01/20/2013 SARAH KIM MD 276.8 HYPOKALEMIA 01/20/2013 SARAH KIM MD 276.1 HYPOSMOLALITY AND/OR HYPONATREMIA 01/20/2013 SARAH KIM MD 276.8 HYPOKALEMIA 01/20/2013 SARAH KIM MD 276.1 HYPOSMOLALITY AND/OR HYPONATREMIA 01/20/2013 SARAH KIM MD 276.8 HYPOKALEMIA 01/20/2013 SARAH KIM MD 276.1 HYPOSMOLALITY AND/OR HYPONATREMIA 01/20/2013 SARAH KIM MD 276.8 HYPOKALEMIA 01/20/2013 SARAH KIM MD 276.1 HYPOSMOLALITY AND/OR HYPONATREMIA 01/20/2013 SARAH KIM MD 276.8 HYPOKALEMIA 01/20/2013 YAMILETH LAURENT MD 276.1 HYPOSMOLALITY AND/OR HYPONATREMIA 01/20/2013 YAMILETH LAURENT MD 276.8 HYPOKALEMIA 01/20/2013 YAMILETH LAURENT MD 276.1 HYPOSMOLALITY AND/OR HYPONATREMIA 01/20/2013 YAMILETH LAURENT MD 276.8 HYPOKALEMIA 01/20/2013 LOPEZ DO, JESSE K 276.1 HYPOSMOLALITY AND/OR HYPONATREMIA 01/20/2013 LOPEZ DO, JESSE K 276.8 HYPOKALEMIA 01/20/2013 LOPEZ DO, JESSE K 276.1 HYPOSMOLALITY AND/OR HYPONATREMIA 01/20/2013 LOPEZ DO, JESSE K 276.8 HYPOKALEMIA 01/20/2013 LOPEZ DO, JESSE K 276.1 HYPOSMOLALITY AND/OR HYPONATREMIA 01/20/2013 LOPEZ DO, JESSE K 276.8 HYPOKALEMIA 01/20/2013 LOPEZ DO, JESSE K 276.1 HYPOSMOLALITY AND/OR HYPONATREMIA 01/20/2013 LOPEZ DO, JESSE K 276.8 HYPOKALEMIA 01/20/2013 YAMILETH LAURENT MD 276.1 HYPOSMOLALITY AND/OR HYPONATREMIA 01/20/2013 YAMILETH LAURENT MD 276.8 HYPOKALEMIA 01/20/2013 YAMILETH LAURENT MD 276.1 HYPOSMOLALITY AND/OR HYPONATREMIA 01/20/2013 YAMILETH LAURENT MD 276.8 HYPOKALEMIA 01/20/2013 LOPEZ DO, JESSE K 276.1 HYPOSMOLALITY AND/OR HYPONATREMIA 01/20/2013 LOPEZ DO, JESSE K 276.8 HYPOKALEMIA 01/20/2013 YAMILETH LAURENT MD 276.1 HYPOSMOLALITY AND/OR HYPONATREMIA 01/20/2013 YAMILETH LAURENT MD 276.8 HYPOKALEMIA 01/20/2013 ZENA UMANZOR APRN 276.1 HYPOSMOLALITY AND/OR HYPONATREMIA 01/20/2013 ZENA UMANZOR APRN 276.8 HYPOKALEMIA 01/20/2013 ZENA UMANZOR APRN 276.1 HYPOSMOLALITY AND/OR HYPONATREMIA 01/20/2013 ZENA UMANZOR APRN 276.8 HYPOKALEMIA 01/20/2013 NOÉ SALES PRODUCER ZENA T 276.1 HYPOSMOLALITY AND/OR HYPONATREMIA 01/20/2013 NOÉ WHITEN ZENA T 276.8 HYPOKALEMIA 01/20/2013 NOÉ WHITEN ZENA T 276.1 HYPOSMOLALITY AND/OR HYPONATREMIA 01/20/2013 NOÉ NETTLES ZENA T 276.8 HYPOKALEMIA 01/20/2013 LOPEZ DO, JESSE K 276.1 HYPOSMOLALITY AND/OR HYPONATREMIA 01/20/2013 LOPEZ DO, JESSE K 276.8 HYPOKALEMIA 01/20/2013 NOÉ NETTLES ZENA T 276.1 HYPOSMOLALITY AND/OR HYPONATREMIA 01/20/2013 ZENA UMANZOR APRN T 276.8 HYPOKALEMIA 01/20/2013 NOÉ NETTLES ZENA T 276.1 HYPOSMOLALITY AND/OR HYPONATREMIA 01/20/2013 ZENA UMANZOR APRN T 276.8 HYPOKALEMIA 01/20/2013 NOÉ NETTLES ZENA T 276.1 HYPOSMOLALITY AND/OR HYPONATREMIA 01/20/2013 NOÉ NETTLES ZENA T 276.8 HYPOKALEMIA 01/20/2013 NOÉ NETTLES ZENA T 276.1 HYPOSMOLALITY AND/OR HYPONATREMIA 01/20/2013 NOÉ NETTLES ZENA T 276.8 HYPOKALEMIA 01/20/2013 NOÉ NETTLES ZENA T 276.1 HYPOSMOLALITY AND/OR HYPONATREMIA 01/20/2013 NOÉ NETTLES ZENA T 276.8 HYPOKALEMIA 01/20/2013 LOPEZ DO, JESSE K 276.1 HYPOSMOLALITY AND/OR HYPONATREMIA 01/20/2013 LOPEZ DO, JESSE K 276.8 HYPOKALEMIA 01/20/2013 LOPEZ DO, JESSE K 276.1 HYPOSMOLALITY AND/OR HYPONATREMIA 01/20/2013 LOPEZ DO, JESSE K 276.8 HYPOKALEMIA 01/20/2013 NOÉ NETTLES ZENA T 276.1 HYPOSMOLALITY AND/OR HYPONATREMIA 01/20/2013 ZENA UMANZOR APRN T 276.8 HYPOKALEMIA 01/20/2013 ZENA UMANZOR APRN T 276.1 HYPOSMOLALITY AND/OR HYPONATREMIA 01/20/2013 NOÉ SALES PRODUCER, ZENA T 276.8 HYPOKALEMIA 01/20/2013 YAMILETH LAURENT MD 276.1 HYPOSMOLALITY AND/OR HYPONATREMIA 01/20/2013 YAMILETH LAURENT MD 276.8 HYPOKALEMIA 01/20/2013 NOÉ NETTLES ZENA T 276.1 HYPOSMOLALITY AND/OR HYPONATREMIA 01/20/2013 NOÉ NETTLES ZENA T 276.8 HYPOKALEMIA 01/20/2013 NOÉ NETTLES ZENA T 276.1 HYPOSMOLALITY AND/OR HYPONATREMIA 01/20/2013 NOÉ NETTLES ZENA T 276.8 HYPOKALEMIA 01/20/2013 NOÉ NETTLES ZENA T 276.1 HYPOSMOLALITY AND/OR HYPONATREMIA 01/20/2013 NOÉ NETTLES ZENA T 276.8 HYPOKALEMIA 01/20/2013 NOÉ NETTLES ZENA T 276.1 HYPOSMOLALITY AND/OR HYPONATREMIA 01/20/2013 NOÉ NETTLES ZENA T 276.8 HYPOKALEMIA 01/20/2013 NOÉ NETTLES ZENA T 276.1 HYPOSMOLALITY AND/OR HYPONATREMIA 01/20/2013 NOÉ NETTLES ZENA T 276.8 HYPOKALEMIA 01/20/2013 NOÉ NETTLES ZENA T 276.1 HYPOSMOLALITY AND/OR HYPONATREMIA 01/20/2013 NOÉ NETTLES ZENA T 276.8 HYPOKALEMIA 01/20/2013 LOPEZ DO, JESSE K 276.1 HYPOSMOLALITY AND/OR HYPONATREMIA 01/20/2013 LOPEZ DO, JESSE K 276.8 HYPOKALEMIA 01/20/2013 NOÉ NETTLES ZENA T 276.1 HYPOSMOLALITY AND/OR HYPONATREMIA 01/20/2013 NOÉ NETTLES ZENA T 276.8 HYPOKALEMIA 01/20/2013 NOÉ NETTLES ZENA T 276.1 HYPOSMOLALITY AND/OR HYPONATREMIA 01/20/2013 NOÉ NETTLES ZENA T 276.8 HYPOKALEMIA 01/20/2013 LOPEZ DO, JESSE K 276.1 HYPOSMOLALITY AND/OR HYPONATREMIA 01/20/2013 LOPEZ DO, JESSE K 276.8 HYPOKALEMIA 01/20/2013 LOPEZ DO, JESSE K 276.1 HYPOSMOLALITY AND/OR HYPONATREMIA 01/20/2013 LOPEZ DO, JESSE K 276.8 HYPOKALEMIA 01/20/2013 ZENA UMANZOR APRN 276.1 HYPOSMOLALITY AND/OR HYPONATREMIA 01/20/2013 ZENA UMANZOR APRN 276.8 HYPOKALEMIA 02/03/2013 KENDALL OTTO MD Ot 135 SARCOIDOSIS 02/03/2013 KENDALL OTTO MD Ot 244.9 HYPOTHYROIDISM NOS 02/03/2013 KENDALL OTTO MD Ot 276.1 HYPOSMOLALITY 02/03/2013 KENDALL OTTO MD Ot 276.8 HYPOPOTASSEMIA 02/03/2013 KENDALL OTTO MD Ot 278.01 MORBID OBESITY 02/03/2013 KENDALL OTTO MD L Ot 305.1 TOBACCO USE DISORDER 02/03/2013 KENDALL OTTO MD Ot 327.23 OBSTRUCTIVE SLEEP APNEA (ADULT) (PEDIATR 02/03/2013 KENDALL OTTO MD Ot 401.9 HYPERTENSION NOS 02/03/2013 KENDALL OTTO MD Ot 416.8 CHR PULMON HEART DIS NEC 02/03/2013 KENDALL OTTO MD Ot 428.0 CONGESTIVE HEART FAILURE NOS 02/03/2013 KENDALL OTTO MD L Ot 496 CHR AIRWAY OBSTRUCT NEC 02/03/2013 KENDALL OTTO MD L Ot 530.11 REFLUX ESOPHAGITIS 02/03/2013 KENDALL OTTO MD Ot 535.51 UNSPEC GASTRITIS GASTRODUODENITIS, W/ 02/03/2013 KENDALL OTTO MD Ot 571.8 CHRONIC LIVER DIS NEC 02/03/2013 KENDALL OTTO MD Ot 729.1 MYALGIA AND MYOSITIS NOS 02/03/2013 KENDALL OTTO MD Ot 785.6 ENLARGEMENT LYMPH NODES 02/03/2013 KENDALL OTTO MD L Ot 799.02 HYPOXEMIA 02/03/2013 KENDALL OTTO MD Ot V85.42 BODY MASS INDEX 45.0-49.9, ADULT 02/10/2013 250.00 DIABETES II CONTROLLED (UNCOMPLICATED) 02/10/2013 250.00 DIABETES II CONTROLLED (UNCOMPLICATED) 02/10/2013 250.00 DIABETES II CONTROLLED (UNCOMPLICATED) 02/10/2013 250.00 DIABETES II CONTROLLED (UNCOMPLICATED) 02/10/2013 250.00 DIABETES II CONTROLLED (UNCOMPLICATED) 02/10/2013 250.00 DIABETES MELLITUS TYPE 2 02/10/2013 250.00 DIABETES MELLITUS TYPE 2 02/10/2013 250.00 DIABETES MELLITUS TYPE 2 02/10/2013 250.00 DIABETES MELLITUS TYPE 2 02/10/2013 250.00 DIABETES MELLITUS TYPE 2 02/10/2013 250.00 DIABETES MELLITUS TYPE 2 02/10/2013 250.00 DIABETES MELLITUS TYPE 2 02/10/2013 LOPEZ DO, JESSE K 250.00 DIABETES MELLITUS TYPE 2 02/10/2013 ABHISHEK TADEO APRN 250.00 DIABETES MELLITUS TYPE 2 02/10/2013 JUDY DAVIS, SARAH Law 250.00 DIABETES MELLITUS TYPE 2 02/10/2013 JUDY DAIVS, SARAH M 250.00 DIABETES MELLITUS TYPE 2 02/10/2013 JUDY DAVIS, SARAH M 250.00 DIABETES MELLITUS TYPE 2 02/10/2013 JUDY DAVIS, SARAH Law 250.00 DIABETES MELLITUS TYPE 2 02/10/2013 JUDY DAVIS, SARAH M 250.00 DIABETES MELLITUS TYPE 2 02/10/2013 YAMILETH LAURENT MD 250.00 DIABETES MELLITUS TYPE 2 02/10/2013 YAMILETH LAURENT MD 250.00 DIABETES MELLITUS TYPE 2 02/10/2013 LOPEZ DO, JESSE K 250.00 DIABETES MELLITUS TYPE 2 02/10/2013 LOPEZ DO, JESSE K 250.00 DIABETES MELLITUS TYPE 2 02/10/2013 LOPEZ DO, JESSE K 250.00 DIABETES MELLITUS TYPE 2 02/10/2013 LOPEZ DO, JESSE K 250.00 DIABETES MELLITUS TYPE 2 02/10/2013 YAMILETH LAURENT MD 250.00 DIABETES MELLITUS TYPE 2 02/10/2013 YAMILETH LAURENT MD 250.00 DIABETES MELLITUS TYPE 2 02/10/2013 LOPEZ DO, JESSE K 250.00 DIABETES MELLITUS TYPE 2 02/10/2013 YAMILETH LAURENT MD 250.00 DIABETES MELLITUS TYPE 2 02/10/2013 ZENA UMANZOR APRN T 250.00 DIABETES MELLITUS TYPE 2 02/10/2013 ZENA UMANZOR APRN 250.00 DIABETES MELLITUS TYPE 2 02/10/2013 ZENA UMANZOR APRN T 250.00 DIABETES MELLITUS TYPE 2 02/10/2013 ZENA UMANZOR APRN T 250.00 DIABETES MELLITUS TYPE 2 02/10/2013 LOPEZ DO, JESSE K 250.00 DIABETES MELLITUS TYPE 2 02/10/2013 ZENA UMANZOR APRN 250.00 DIABETES MELLITUS TYPE 2 02/10/2013 NOÉ SALES PRODUCER, ZENA T 250.00 DIABETES MELLITUS TYPE 2 02/10/2013 NOÉ WHITEN, ZENA T 250.00 DIABETES MELLITUS TYPE 2 02/10/2013 NOÉ WHITEN, ZENA T 250.00 DIABETES MELLITUS TYPE 2 02/10/2013 NOÉ WHITEN, ZENA T 250.00 DIABETES MELLITUS TYPE 2 02/10/2013 LOPEZ DO, JESSE K 250.00 DIABETES MELLITUS TYPE 2 02/10/2013 LOPEZ DO, JESSE K 250.00 DIABETES MELLITUS TYPE 2 02/10/2013 NOÉ NETTLES, ZENA T 250.00 DIABETES MELLITUS TYPE 2 02/10/2013 NOÉ WHITEN, ZENA T 250.00 DIABETES MELLITUS TYPE 2 02/10/2013 ANASTASIIA DAVIS, YAMILETH 250.00 DIABETES MELLITUS TYPE 2 02/10/2013 NOÉ NETTLES, ZENA T 250.00 DIABETES MELLITUS TYPE 2 02/10/2013 NOÉ NETTLES, ZENA T 250.00 DIABETES MELLITUS TYPE 2 02/10/2013 NOÉ NETTLES, ZENA T 250.00 DIABETES MELLITUS TYPE 2 02/10/2013 NOÉ NETTLES, ZENA T 250.00 DIABETES MELLITUS TYPE 2 02/10/2013 NOÉ NETTLES, ZENA T 250.00 DIABETES MELLITUS TYPE 2 02/10/2013 NOÉ SALES PRODUCER, ZENA T 250.00 DIABETES MELLITUS TYPE 2 02/10/2013 LOPEZ DO, JESSE K 250.00 DIABETES MELLITUS TYPE 2 02/10/2013 NOÉ NETTLES, ZENA T 250.00 DIABETES MELLITUS TYPE 2 02/10/2013 NOÉ NETTLES, ZENA T 250.00 DIABETES MELLITUS TYPE 2 02/10/2013 LOPEZ DO, JESSE K 250.00 DIABETES MELLITUS TYPE 2 02/10/2013 LOPEZ DO, JESSE K 250.00 DIABETES MELLITUS TYPE 2 02/10/2013 NOÉ NETTLES, ZENA T 250.00 DIABETES MELLITUS TYPE 2 02/16/2013 LOPEZ DO, JESSE K Ot 135 SARCOIDOSIS 02/16/2013 LOPEZ DO, JESSE K Ot 244.9 HYPOTHYROIDISM NOS 02/16/2013 LOPEZ DO, JESSE K Ot 249.00 SEC DIABETES MELLITUS W/OUT MENTION COMP 02/16/2013 LOPEZ DO, JESSE K Ot 276.1 HYPOSMOLALITY 02/16/2013 LOPEZ DO, JESSE K Ot 276.2 ACIDOSIS 02/16/2013 LOPEZ DO, JESSE K Ot 276.8 HYPOPOTASSEMIA 02/16/2013 LOPEZ DO, JESSE K Ot 278.01 MORBID OBESITY 02/16/2013 LOPEZ DO, JESSE K Ot 278.03 OBESITY HYPOVENTILATION SYNDROME 02/16/2013 JESSE LOPEZ DO Ot 305.1 TOBACCO USE DISORDER 02/16/2013 JOHN CASE JESSE Estrada Ot 327.23 OBSTRUCTIVE SLEEP APNEA (ADULT) (PEDIATR 02/16/2013 JESSE LOPEZ DO Ot 338.29 OTHER CHRONIC PAIN 02/16/2013 JOHN CASE JESSE Estrada Ot 401.9 HYPERTENSION NOS 02/16/2013 LOPEZ DO JESSE Estrada Ot 428.0 CONGESTIVE HEART FAILURE NOS 02/16/2013 JOHN CASE JESSE Estrada Ot 496 CHR AIRWAY OBSTRUCT NEC 02/16/2013 JESSE LOPEZ DO Ot 518.81 ACUTE RESPIRATORY FAILURE 02/16/2013 JOHN CASE JESSE Estrada Ot 584.9 ACUTE RENAL FAILURE, UNSPECIFIED 02/16/2013 JOHN CASE JESSE Estrada Ot E932.0 ADV EFF CORTICOSTEROIDS 02/16/2013 JOHN CASE JESSE Estrada Ot V15.81 HX OF PAST NONCOMPLIANCE 02/16/2013 JOHN CASE JESSE Estrada Ot V46.2 SUPPLEMENTAL OXYGEN 02/16/2013 JOHN CASE JESSE Estrada Ot V58.65 LONG-TERM(CURRENT)USE OF STEROIDS 02/16/2013 JOHN CASE JESSE Estrada Ot V85.42 BODY MASS INDEX 45.0-49.9, ADULT 05/09/2013 YAMILETH LAURENT MD Ot 135 SARCOIDOSIS 05/09/2013 YAMILETH LAURENT MD Ot 244.9 HYPOTHYROIDISM NOS 05/09/2013 YAMILETH LAURENT MD Ot 250.00 DIAB CALIN WO COMPL, TYPE II OR UNSPEC TY 05/09/2013 YAMILETH LAURENT MD Ot 276.2 ACIDOSIS 05/09/2013 YAMILETH LAURENT MD Ot 278.01 MORBID OBESITY 05/09/2013 YAMILETH LAURENT MD Ot 338.29 OTHER CHRONIC PAIN 05/09/2013 YAMILETH LAURENT MD Ot 496 CHR AIRWAY OBSTRUCT NEC 05/09/2013 YAMILETH LAURENT MD Ot 518.81 ACUTE RESPIRATORY FAILURE 05/09/2013 YAMILETH LAURENT MD Ot V46.2 SUPPLEMENTAL OXYGEN 05/09/2013 YAMILETH LAURENT MD Ot V58.65 LONG-TERM(CURRENT)USE OF STEROIDS 05/09/2013 YAMILETH LAURENT MD Ot V85.42 BODY MASS INDEX 45.0-49.9, ADULT 05/11/2013 626.4 irregular length of menstrual periods 05/11/2013 626.4 irregular length of menstrual periods 05/11/2013 626.4 irregular length of menstrual periods 05/11/2013 626.4 irregular length of menstrual periods 05/11/2013 JESSE LOPEZ DO 626.4 irregular length of menstrual periods 05/11/2013 ABHISHEK TADEO APRN 626.4 irregular length of menstrual periods 05/11/2013 SARAH KIM MD 626.4 irregular length of menstrual periods 05/11/2013 SARAH KIM MD 626.4 irregular length of menstrual periods 05/11/2013 SARAH KIM MD 626.4 irregular length of menstrual periods 05/11/2013 SARAH KIM MD 626.4 irregular length of menstrual periods 05/11/2013 SARAH KIM MD 626.4 irregular length of menstrual periods 05/11/2013 YAMILETH LAURENT MD 626.4 irregular length of menstrual periods 05/11/2013 YAMILETH LAURENT MD 626.4 irregular length of menstrual periods 05/11/2013 JESSE LOPEZ DO K 626.4 irregular length of menstrual periods 05/11/2013 JESSE LOPEZ DO 626.4 irregular length of menstrual periods 05/11/2013 JESSE LOPEZ DO K 626.4 irregular length of menstrual periods 05/11/2013 JESSE LOPEZ DO 626.4 irregular length of menstrual periods 05/11/2013 YAMILETH LAURENT MD 626.4 irregular length of menstrual periods 05/11/2013 YAMILETH LAURENT MD 626.4 irregular length of menstrual periods 05/11/2013 JESSE LOPEZ DO 626.4 irregular length of menstrual periods 05/11/2013 YAMILETH LAURENT MD 626.4 irregular length of menstrual periods 05/11/2013 ZENA UMANZOR APRN T 626.4 irregular length of menstrual periods 05/11/2013 ZENA UMANZOR APRN T 626.4 irregular length of menstrual periods 05/11/2013 ZENA UMANZOR APRN T 626.4 irregular length of menstrual periods 05/11/2013 ZENA UMANZOR APRN T 626.4 irregular length of menstrual periods 05/11/2013 LOPEZ DO, JESSE K 626.4 irregular length of menstrual periods 05/11/2013 ZENA UMANZOR APRN T 626.4 irregular length of menstrual periods 05/11/2013 ZENA UMANZOR APRN T 626.4 irregular length of menstrual periods 05/11/2013 ZENA UMANZOR APRN T 626.4 irregular length of menstrual periods 05/11/2013 ZENA UMANZOR APRN T 626.4 irregular length of menstrual periods 05/11/2013 ZENA UMANZOR APRN T 626.4 irregular length of menstrual periods 05/11/2013 LOPEZ DO, JESSE K 626.4 irregular length of menstrual periods 05/11/2013 LOPEZ DO, JESSE K 626.4 irregular length of menstrual periods 05/11/2013 ZENA UMANZOR APRN T 626.4 irregular length of menstrual periods 05/11/2013 ZENA UMANZOR APRN T 626.4 irregular length of menstrual periods 05/11/2013 YAMILETH LAURENT MD 626.4 irregular length of menstrual periods 05/11/2013 ZENA UMANZOR APRN T 626.4 irregular length of menstrual periods 05/11/2013 ZENA UMANZOR APRN T 626.4 irregular length of menstrual periods 05/11/2013 ZENA UMANZOR APRN T 626.4 irregular length of menstrual periods 05/11/2013 ZENA UMANZOR APRN T 626.4 irregular length of menstrual periods 05/11/2013 ZENA UMANZOR APRN T 626.4 irregular length of menstrual periods 05/11/2013 ZENA UMANZOR APRN T 626.4 irregular length of menstrual periods 05/11/2013 LOPEZ DO JESSE K 626.4 irregular length of menstrual periods 05/11/2013 ZENA UMANZOR APRN T 626.4 irregular length of menstrual periods 05/11/2013 ZENA UMANZOR APRN T 626.4 irregular length of menstrual periods 05/11/2013 LOPEZ DO, JESSE K 626.4 irregular length of menstrual periods 05/11/2013 LOPEZ DO, JESSE K 626.4 irregular length of menstrual periods 05/11/2013 ZENA UMANZOR APRN T 626.4 irregular length of menstrual periods 05/28/2013 LOPEZ DO, JESSE K Ot 135 SARCOIDOSIS 05/28/2013 LOPEZ DO, JESSE K Ot 244.9 HYPOTHYROIDISM NOS 05/28/2013 LOPEZ DO, JESSE K Ot 250.00 DIAB CALIN WO COMPL, TYPE II OR UNSPEC TY 05/28/2013 JESSE LOPEZ DO Ot 272.4 HYPERLIPIDEMIA NEC/NOS 05/28/2013 JESSE LOPEZ DO Ot 276.2 ACIDOSIS 05/28/2013 JESSE LOPEZ DO Ot 278.01 MORBID OBESITY 05/28/2013 JESSE LOPEZ DO Ot 278.03 OBESITY HYPOVENTILATION SYNDROME 05/28/2013 JESSE LOPEZ DO Ot 285.9 ANEMIA NOS 05/28/2013 JESSE LOPEZ DO Ot 305.1 TOBACCO USE DISORDER 05/28/2013 JESSE LOPEZ DO Ot 327.23 OBSTRUCTIVE SLEEP APNEA (ADULT) (PEDIATR 05/28/2013 JESSE LOPEZ DO Ot 401.9 HYPERTENSION NOS 05/28/2013 JESSE LOPEZ DO Ot 416.8 CHR PULMON HEART DIS NEC 05/28/2013 JESSE LOPEZ DO Ot 428.0 CONGESTIVE HEART FAILURE NOS 05/28/2013 JESSE LOPEZ DO Ot 478.33 VOCAL PARAL BILAT PART 05/28/2013 JESSE LOPEZ DO Ot 496 CHR AIRWAY OBSTRUCT NEC 05/28/2013 JESSE LOPEZ DO Ot 518.81 ACUTE RESPIRATORY FAILURE 05/28/2013 JESSE LOPEZ DO Ot 571.8 CHRONIC LIVER DIS NEC 05/28/2013 JESSE LOPEZ DO Ot 682.6 CELLULITIS OF LEG 05/28/2013 JESSE LOPEZ DO Ot 729.1 MYALGIA AND MYOSITIS NOS 05/28/2013 JESSE LOPEZ DO Ot 780.97 ALTERED MENTAL STATUS 05/28/2013 JESSE LOPEZ DO Ot 782.3 EDEMA 05/28/2013 JESSE LOPEZ DO Ot 784.0 HEADACHE 05/28/2013 JESSE LOPEZ DO Ot 787.91 DIARRHEA 05/28/2013 JESSE LOPEZ DO Ot 965.09 POISONING-OPIATES NEC 05/28/2013 JESSE LOPEZ DO Ot E850.2 ACC POISON-OPIATES NEC 05/28/2013 JESSE LOPEZ DO Ot E932.0 ADV EFF CORTICOSTEROIDS 05/28/2013 JESSE LOPEZ DO Ot V46.2 SUPPLEMENTAL OXYGEN 05/28/2013 JESSE LOPEZ DO Ot V58.65 LONG-TERM(CURRENT)USE OF STEROIDS 05/28/2013 LOPEZ DO, JESSE K Ot V85.42 BODY MASS INDEX 45.0-49.9, ADULT 06/11/2013 CARLYLE SALES PRODUCER, ABHISHEK R 786.2 COUGH 06/11/2013 JUDY DAVIS, SARAH Law 786.2 COUGH 06/11/2013 JUDY DAVIS, SARAH Law 786.2 COUGH 06/11/2013 JUDY DAVIS, SARAH Law 786.2 COUGH 06/11/2013 JUDY DAVIS, SARAH Law 786.2 COUGH 06/11/2013 JUDY DAVIS, SARAH Law 786.2 COUGH 06/11/2013 YAMILETH LAURENT MD 786.2 COUGH 06/11/2013 YAMILETH LAURENT MD 786.2 COUGH 06/11/2013 LOPEZ DO, JESSE K 786.2 COUGH 06/11/2013 LOPEZ DO, JESSE K 786.2 COUGH 06/11/2013 LOPEZ DO, JESSE K 786.2 COUGH 06/11/2013 LOPEZ DO, JESSE K 786.2 COUGH 06/11/2013 YAMILETH LAURENT MD 786.2 COUGH 06/11/2013 YAMILETH LAURENT MD 786.2 COUGH 06/11/2013 LOPEZ DO, JESSE K 786.2 COUGH 06/11/2013 YAMILETH LAURENT MD 786.2 COUGH 06/11/2013 NOÉ NETTLES, ZENA T 786.2 COUGH 06/11/2013 NOÉ NETTLES, ZENA T 786.2 COUGH 06/11/2013 NOÉ NETTLES, ZENA T 786.2 COUGH 06/11/2013 NOÉ NETTLES, ZENA T 786.2 COUGH 06/11/2013 LOPEZ DO, JESSE K 786.2 COUGH 06/11/2013 NOÉ NETTLES, ZENA T 786.2 COUGH 06/11/2013 NOÉ SALES PRODUCER, ZENA T 786.2 COUGH 06/11/2013 NOÉ SALES PRODUCER, ZENA T 786.2 COUGH 06/11/2013 NOÉ NETTLES, ZENA T 786.2 COUGH 06/11/2013 NOÉ NETTLES, ZENA T 786.2 COUGH 06/11/2013 LOPEZ DO, JESSE K 786.2 COUGH 06/11/2013 LOPEZ DO, JESSE K 786.2 COUGH 06/11/2013 NOÉ NETTLES, ZENA T 786.2 COUGH 06/11/2013 NOÉ NETTLES, ZENA T 786.2 COUGH 06/11/2013 YAMILETH LAURENT MD 786.2 COUGH 06/11/2013 NOÉ SALES PRODUCER, ZENA T 786.2 COUGH 06/11/2013 NOÉ SALES PRODUCER, ZENA T 786.2 COUGH 06/11/2013 NOÉ SALES PRODUCER, ZENA T 786.2 COUGH 06/11/2013 NOÉ SALES PRODUCER, ZENA T 786.2 COUGH 06/11/2013 NOÉ SALES PRODUCER, ZENA T 786.2 COUGH 06/11/2013 NOÉ SALES PRODUCER, ZENA T 786.2 COUGH 06/11/2013 LOPEZ DO, JESSE K 786.2 COUGH 06/11/2013 NOÉ SALES PRODUCER, ZENA T 786.2 COUGH 06/11/2013 NOÉ SALES PRODUCER, ZENA T 786.2 COUGH 06/11/2013 LOPEZ DO, JESSE K 786.2 COUGH 06/11/2013 LOPEZ DO, JESSE K 786.2 COUGH 06/11/2013 NOÉ SALES PRODUCER, ZENA T 786.2 COUGH 07/06/2013 SARAH KIM MD 786.1 Stridor 07/06/2013 SARAH KIM MD V03.82 PPV23 (PNEUMOVAX) DX 07/06/2013 SARAH KIM MD 786.1 Stridor 07/06/2013 SARAH KIM MD V03.82 PPV23 (PNEUMOVAX) DX 07/06/2013 SARAH KIM MD 786.1 Stridor 07/06/2013 SARAH KIM MD V03.82 PPV23 (PNEUMOVAX) DX 07/06/2013 SARAH KIM MD 786.1 Stridor 07/06/2013 SARAH KIM MD V03.82 PPV23 (PNEUMOVAX) DX 07/06/2013 YAMILETH LAURENT MD 786.1 Stridor 07/06/2013 YAMILETH LAURENT MD V03.82 PPV23 (PNEUMOVAX) DX 07/06/2013 YAMILETH LAURENT MD 786.1 Stridor 07/06/2013 YAMILETH LAURENT MD V03.82 PPV23 (PNEUMOVAX) DX 07/06/2013 LOPEZ DO, JESSE K 786.1 STRIDOR 07/06/2013 LOPEZ DO, JESSE K V03.82 PPV23 (PNEUMOVAX) DX 07/06/2013 LOPEZ DO, JESSE K 786.1 STRIDOR 07/06/2013 LOPEZ DO, JESSE K V03.82 PPV23 (PNEUMOVAX) DX 07/06/2013 LOPEZ DO, JESSE K 786.1 STRIDOR 07/06/2013 LOEPZ DO, JESSE K V03.82 PPV23 (PNEUMOVAX) DX 07/06/2013 LOPEZ DO, JESSE K 786.1 STRIDOR 07/06/2013 LOPEZ DO, JESSE K V03.82 PPV23 (PNEUMOVAX) DX 07/06/2013 YAMILETH LAURENT MD 786.1 STRIDOR 07/06/2013 YAMILETH LAURENT MD V03.82 PPV23 (PNEUMOVAX) DX 07/06/2013 YAMILETH LAURENT MD 786.1 STRIDOR 07/06/2013 YAMILETH LAURENT MD V03.82 PPV23 (PNEUMOVAX) DX 07/06/2013 LOPEZ DO, JESSE K 786.1 STRIDOR 07/06/2013 LOPEZ DO, JESSE K V03.82 PPV23 (PNEUMOVAX) DX 07/06/2013 YAMILETH LAURENT MD 786.1 STRIDOR 07/06/2013 YAMILETH LAURENT MD V03.82 PPV23 (PNEUMOVAX) DX 07/06/2013 ZENA UMANZOR APRN 786.1 STRIDOR 07/06/2013 ZENA UMANZOR APRN V03.82 PPV23 (PNEUMOVAX) DX 07/06/2013 ZENA UMANZOR APRN 786.1 STRIDOR 07/06/2013 ZENA UMANZOR APRN V03.82 PPV23 (PNEUMOVAX) DX 07/06/2013 ZENA UMANZOR APRN 786.1 STRIDOR 07/06/2013 ZENA UMANZOR APRN V03.82 PPV23 (PNEUMOVAX) DX 07/06/2013 ZENA UMANZOR APRN 786.1 STRIDOR 07/06/2013 ZENA UMANZOR APRN V03.82 PPV23 (PNEUMOVAX) DX 07/06/2013 LOPEZ DO, JESSE K 786.1 STRIDOR 07/06/2013 LOPEZ DO, JESSE K V03.82 PPV23 (PNEUMOVAX) DX 07/06/2013 ZENA UMANZOR APRN 786.1 STRIDOR 07/06/2013 ZENA UMANZOR APRN V03.82 PPV23 (PNEUMOVAX) DX 07/06/2013 ZENA UMANZOR APRN 786.1 STRIDOR 07/06/2013 ZEAN UMANZOR APRN V03.82 PPV23 (PNEUMOVAX) DX 07/06/2013 ZENA UMANZOR APRN 786.1 STRIDOR 07/06/2013 ZENA UMANZOR APRN V03.82 PPV23 (PNEUMOVAX) DX 07/06/2013 ZENA UMANZOR APRN 786.1 STRIDOR 07/06/2013 ZENA UMANZOR APRN V03.82 PPV23 (PNEUMOVAX) DX 07/06/2013 ZENA UMANZOR APRN 786.1 STRIDOR 07/06/2013 ZENA UMANZOR APRN V03.82 PPV23 (PNEUMOVAX) DX 07/06/2013 LOPEZ DO, JESSE K 786.1 STRIDOR 07/06/2013 LOPEZ DO, JESSE K V03.82 PPV23 (PNEUMOVAX) DX 07/06/2013 LOPEZ DO, JESSE K 786.1 STRIDOR 07/06/2013 LOPEZ DO, JESSE K V03.82 PPV23 (PNEUMOVAX) DX 07/06/2013 ZENA UMANZOR APRN 786.1 STRIDOR 07/06/2013 ZENA UMANZOR APRN V03.82 PPV23 (PNEUMOVAX) DX 07/06/2013 ZENA UMANZOR APRN 786.1 STRIDOR 07/06/2013 ZENA UMANZOR APRN V03.82 PPV23 (PNEUMOVAX) DX 07/06/2013 YAMILETH LAURENT MD 786.1 STRIDOR 07/06/2013 YAMILETH LAURENT MD V03.82 PPV23 (PNEUMOVAX) DX 07/06/2013 ZENA UMANZOR APRN 786.1 STRIDOR 07/06/2013 ZENA UMANZOR APRN V03.82 PPV23 (PNEUMOVAX) DX 07/06/2013 ZENA UMANZOR APRN 786.1 STRIDOR 07/06/2013 ZENA UMANZOR APRN V03.82 PPV23 (PNEUMOVAX) DX 07/06/2013 ZENA UMANZOR APRN 786.1 STRIDOR 07/06/2013 ZENA UMANZOR APRN V03.82 PPV23 (PNEUMOVAX) DX 07/06/2013 ZENA UMANZOR APRN 786.1 STRIDOR 07/06/2013 NOÉ SALES PRODUCER, ZENA T V03.82 PPV23 (PNEUMOVAX) DX 07/06/2013 ZENA UMANZOR APRN T 786.1 STRIDOR 07/06/2013 ZENA UMANZOR APRN T V03.82 PPV23 (PNEUMOVAX) DX 07/06/2013 ZENA UMANZOR APRN T 786.1 STRIDOR 07/06/2013 ZENA UMANZOR APRN T V03.82 PPV23 (PNEUMOVAX) DX 07/06/2013 LOPEZ DO, JESSE K 786.1 STRIDOR 07/06/2013 LOPEZ DO, JESSE K V03.82 PPV23 (PNEUMOVAX) DX 07/06/2013 ZENA UMANZOR APRN T 786.1 STRIDOR 07/06/2013 ZENA UMANZOR APRN T V03.82 PPV23 (PNEUMOVAX) DX 07/06/2013 ZENA UMANZOR APRN T 786.1 STRIDOR 07/06/2013 ZENA UMANZOR APRN T V03.82 PPV23 (PNEUMOVAX) DX 07/06/2013 LOPEZ DO, JESSE K 786.1 STRIDOR 07/06/2013 LOPEZ DO, JESSE K V03.82 PPV23 (PNEUMOVAX) DX 07/06/2013 LOPEZ DO, JESSE K 786.1 STRIDOR 07/06/2013 LOPEZ DO, JESSE K V03.82 PPV23 (PNEUMOVAX) DX 07/06/2013 ZENA UMANZOR APRN T 786.1 STRIDOR 07/06/2013 ZENA UMANZOR APRN T V03.82 PPV23 (PNEUMOVAX) DX 07/13/2013 SUNI MAR DOA K Ot 428.0 CONGESTIVE HEART FAILURE NOS 07/13/2013 SUNI MAR DOA K Ot 786.05 SHORTNESS OF BREATH 07/16/2013 SARAY JOHNSON MD Ot 491.21 OBSTR CHRONIC BRONCHITIS, W (ACUTE) EXAC 07/16/2013 SARAY JOHNSON MD Ot 786.05 SHORTNESS OF BREATH 07/16/2013 SARAY JOHNSON MD Ot 799.02 HYPOXEMIA 07/28/2013 SARAH KIM MD 729.5 PAIN IN LIMB 07/28/2013 SARAH KIM MD 729.5 PAIN IN LIMB 07/28/2013 SARAH KIM MD 729.5 PAIN IN LIMB 07/28/2013 YAMILETH LAURENT MD 729.5 PAIN IN LIMB 07/28/2013 YAMILETH LAURENT MD 729.5 PAIN IN LIMB 07/28/2013 LOPEZ DO, JESSE K 729.5 PAIN IN LIMB 07/28/2013 LOPEZ DO, JESSE K 729.5 PAIN IN LIMB 07/28/2013 LOPEZ DO, JESSE K 729.5 PAIN IN LIMB 07/28/2013 LOPEZ DO, JESSE K 729.5 PAIN IN LIMB 07/28/2013 YAMILETH LAURENT MD 729.5 PAIN IN LIMB 07/28/2013 YAMILETH LAURENT MD9.5 PAIN IN LIMB 07/28/2013 LOPEZ DO, JESSE K 729.5 PAIN IN LIMB 07/28/2013 YAMILETH LAURENT MD 729.5 PAIN IN LIMB 07/28/2013 ZENA UMANZOR APRN T 729.5 PAIN IN LIMB 07/28/2013 ZENA UMANZOR APRN T 729.5 PAIN IN LIMB 07/28/2013 ZENA UMANZOR APRN T 729.5 PAIN IN LIMB 07/28/2013 ZENA UMANZOR APRN T 729.5 PAIN IN LIMB 07/28/2013 LOPEZ DO, JESSE K 729.5 PAIN IN LIMB 07/28/2013 ZENA UMANZOR APRN T 729.5 PAIN IN LIMB 07/28/2013 ZENA UMANZOR APRN T 729.5 PAIN IN LIMB 07/28/2013 ZENA UMANZOR APRN T 729.5 PAIN IN LIMB 07/28/2013 NOÉ NETTLES ZENA T 729.5 PAIN IN LIMB 07/28/2013 NOÉ NETTLES ZENA T 729.5 PAIN IN LIMB 07/28/2013 LOPEZ DO, JESSE K 729.5 PAIN IN LIMB 07/28/2013 LOPEZ DO, JESSE K 729.5 PAIN IN LIMB 07/28/2013 ZENA UMANZOR APRN T 729.5 PAIN IN LIMB 07/28/2013 ZENA UMANZOR APRN T 729.5 PAIN IN LIMB 07/28/2013 YAMILETH LAURENT MD 729.5 PAIN IN LIMB 07/28/2013 ZENA UMANZOR APRN T 729.5 PAIN IN LIMB 07/28/2013 ZENA UMANZOR APRN T 729.5 PAIN IN LIMB 07/28/2013 ZENA UMANZOR APRN T 729.5 PAIN IN LIMB 07/28/2013 ZENA UMANZOR APRN T 729.5 PAIN IN LIMB 07/28/2013 ZENA UMANZOR APRN 729.5 PAIN IN LIMB 07/28/2013 ZENA UMANZOR APRN T 729.5 PAIN IN LIMB 07/28/2013 LOPEZ DO, JESSE K 729.5 PAIN IN LIMB 07/28/2013 ZENA UMANZOR APRN T 729.5 PAIN IN LIMB 07/28/2013 ZENA UMANZOR APRN T 729.5 PAIN IN LIMB 07/28/2013 LOPEZ DO, JESSE K 729.5 PAIN IN LIMB 07/28/2013 LOPEZ DO, JESSE K 729.5 PAIN IN LIMB 07/28/2013 ZENA UMANZOR APRN T 729.5 PAIN IN LIMB 08/05/2013 SARAH KIM MD 451.19 PHLEBITIS OF POPLITEAL VEIN 08/05/2013 SARAH KIM MD 451.19 PHLEBITIS OF POPLITEAL VEIN 08/05/2013 YAMILETH LAURENT MD 451.19 PHLEBITIS OF POPLITEAL VEIN 08/05/2013 YAMILETH LAURENT MD 451.19 PHLEBITIS OF POPLITEAL VEIN 08/05/2013 LOPEZ DO, JESSE K 451.19 PHLEBITIS OF POPLITEAL VEIN 08/05/2013 LOPEZ DO, JESSE K 451.19 PHLEBITIS OF POPLITEAL VEIN 08/05/2013 LOPEZ DO, JESSE K 451.19 PHLEBITIS OF POPLITEAL VEIN 08/05/2013 LOPEZ DO, JESSE K 451.19 PHLEBITIS OF POPLITEAL VEIN 08/05/2013 YAMILETH LAURENT MD 451.19 PHLEBITIS OF POPLITEAL VEIN 08/05/2013 YAMILETH LAURENT MD 451.19 PHLEBITIS OF POPLITEAL VEIN 08/05/2013 LOPEZ DO, JESSE K 451.19 PHLEBITIS OF POPLITEAL VEIN 08/05/2013 YAMILETH LAURENT MD 451.19 PHLEBITIS OF POPLITEAL VEIN 08/05/2013 ZENA UMANZOR APRN 451.19 PHLEBITIS OF POPLITEAL VEIN 08/05/2013 ZENA UMANZOR APRN 451.19 PHLEBITIS OF POPLITEAL VEIN 08/05/2013 ZENA UMANZOR APRN 451.19 PHLEBITIS OF POPLITEAL VEIN 08/05/2013 ZENA UMANZOR APRN 451.19 PHLEBITIS OF POPLITEAL VEIN 08/05/2013 LOPEZ DO, JESSE K 451.19 PHLEBITIS OF POPLITEAL VEIN 08/05/2013 ZENA UMANZOR APRN 451.19 PHLEBITIS OF POPLITEAL VEIN 08/05/2013 ZENA UMANZOR APRN 451.19 PHLEBITIS OF POPLITEAL VEIN 08/05/2013 ZENA UMANZOR APRN 451.19 PHLEBITIS OF POPLITEAL VEIN 08/05/2013 ZENA UMANZOR APRN 451.19 PHLEBITIS OF POPLITEAL VEIN 08/05/2013 ZENA UMANZOR APRN 451.19 PHLEBITIS OF POPLITEAL VEIN 08/05/2013 LOPEZ DO, JESSE K 451.19 PHLEBITIS OF POPLITEAL VEIN 08/05/2013 LOPEZ DO, JESSE K 451.19 PHLEBITIS OF POPLITEAL VEIN 08/05/2013 ZENA UMANZOR APRN 451.19 PHLEBITIS OF POPLITEAL VEIN 08/05/2013 ZENA UMANZOR APRN 451.19 PHLEBITIS OF POPLITEAL VEIN 08/05/2013 YAMILETH LAURENT MD 451.19 PHLEBITIS OF POPLITEAL VEIN 08/05/2013 ZENA UMANZOR APRN 451.19 PHLEBITIS OF POPLITEAL VEIN 08/05/2013 ZENA UMANZOR APRN 451.19 PHLEBITIS OF POPLITEAL VEIN 08/05/2013 ZENA UMANZOR APRN 451.19 PHLEBITIS OF POPLITEAL VEIN 08/05/2013 ZENA UMANZOR APRN 451.19 PHLEBITIS OF POPLITEAL VEIN 08/05/2013 ZENA UMANZOR APRN 451.19 PHLEBITIS OF POPLITEAL VEIN 08/05/2013 ZENA UMANZOR APRN 451.19 PHLEBITIS OF POPLITEAL VEIN 08/05/2013 LOPEZ DO, JESSE K 451.19 PHLEBITIS OF POPLITEAL VEIN 08/05/2013 ZENA UMANZOR APRN T 451.19 PHLEBITIS OF POPLITEAL VEIN 08/05/2013 ZENA UMANZOR APRN T 451.19 PHLEBITIS OF POPLITEAL VEIN 08/05/2013 LOPEZ DO, JESSE K 451.19 PHLEBITIS OF POPLITEAL VEIN 08/05/2013 LOPEZ DO, JESSE K 451.19 PHLEBITIS OF POPLITEAL VEIN 08/05/2013 ZENA UMANZOR APRN T 451.19 PHLEBITIS OF POPLITEAL VEIN 09/07/2013 SARAH KIM MD 416.9 CHRONIC PULMONARY HEART DISEASE UNSPECIFIED 09/07/2013 SARAH KIM MD 496 CHRONIC AIRWAY OBSTRUCTION NOT ELSEWHERE CLASSIFIED 09/07/2013 YAMILETH LAURENT MD.[place] CHRONIC PULMONARY HEART DISEASE UNSPECIFIED 09/07/2013 YAMILETH LAURENT MD CHRONIC AIRWAY OBSTRUCTION NOT ELSEWHERE CLASSIFIED 09/07/2013 YAMILETH LAURENT MD.9 CHRONIC PULMONARY HEART DISEASE UNSPECIFIED 09/07/2013 YAMILETH LAURENT MD CHRONIC AIRWAY OBSTRUCTION NOT ELSEWHERE CLASSIFIED 09/07/2013 LOPEZ DO, JESSE K 416.9 CHRONIC PULMONARY HEART DISEASE UNSPECIFIED 09/07/2013 LOPEZ DO, JESSE K 496 CHRONIC AIRWAY OBSTRUCTION NOT ELSEWHERE CLASSIFIED 09/07/2013 LOPEZ DO, JESSE K 416.9 CHRONIC PULMONARY HEART DISEASE UNSPECIFIED 09/07/2013 LOPEZ DO, JESSE K 496 CHRONIC AIRWAY OBSTRUCTION NOT ELSEWHERE CLASSIFIED 09/07/2013 LOPEZ DO, JESSE K 416.9 CHRONIC PULMONARY HEART DISEASE UNSPECIFIED 09/07/2013 LOPEZ DO, JESSE K 496 CHRONIC AIRWAY OBSTRUCTION NOT ELSEWHERE CLASSIFIED 09/07/2013 LOPEZ DO, JESSE K 416.9 CHRONIC PULMONARY HEART DISEASE UNSPECIFIED 09/07/2013 LOPEZ DO, JESSE K 496 CHRONIC AIRWAY OBSTRUCTION NOT ELSEWHERE CLASSIFIED 09/07/2013 YAMILETH LAURENT MD.9 CHRONIC PULMONARY HEART DISEASE UNSPECIFIED 09/07/2013 YAMILETH LAURENT MD CHRONIC AIRWAY OBSTRUCTION NOT ELSEWHERE CLASSIFIED 09/07/2013 YAMILETH LAURENT MD.9 CHRONIC PULMONARY HEART DISEASE UNSPECIFIED 09/07/2013 YAMILETH LAURENT MD CHRONIC AIRWAY OBSTRUCTION NOT ELSEWHERE CLASSIFIED 09/07/2013 LOPEZ DO, JESSE K 416.9 CHRONIC PULMONARY HEART DISEASE UNSPECIFIED 09/07/2013 LOPEZ DO, JESSE K 496 CHRONIC AIRWAY OBSTRUCTION NOT ELSEWHERE CLASSIFIED 09/07/2013 YAMILETH LAURENT MD.9 CHRONIC PULMONARY HEART DISEASE UNSPECIFIED 09/07/2013 YAMILETH LAURENT MD CHRONIC AIRWAY OBSTRUCTION NOT ELSEWHERE CLASSIFIED 09/07/2013 ZENA UMANZOR APRN 416.9 CHRONIC PULMONARY HEART DISEASE UNSPECIFIED 09/07/2013 ZENA UMANZOR APRN 496 CHRONIC AIRWAY OBSTRUCTION NOT ELSEWHERE CLASSIFIED 09/07/2013 ZENA UMANZOR APRN 416.9 CHRONIC PULMONARY HEART DISEASE UNSPECIFIED 09/07/2013 ZENA UMANZOR APRN 496 CHRONIC AIRWAY OBSTRUCTION NOT ELSEWHERE CLASSIFIED 09/07/2013 ZENA UMANZOR APRN 416.9 CHRONIC PULMONARY HEART DISEASE UNSPECIFIED 09/07/2013 ZENA UMANZOR APRN 496 CHRONIC AIRWAY OBSTRUCTION NOT ELSEWHERE CLASSIFIED 09/07/2013 ZENA UMANZOR APRN T 416.9 CHRONIC PULMONARY HEART DISEASE UNSPECIFIED 09/07/2013 ZENA UMANZOR APRN T 496 CHRONIC AIRWAY OBSTRUCTION NOT ELSEWHERE CLASSIFIED 09/07/2013 LOPEZ DO, JESSE K 416.9 CHRONIC PULMONARY HEART DISEASE UNSPECIFIED 09/07/2013 LOPEZ DO, JESSE K 496 CHRONIC AIRWAY OBSTRUCTION NOT ELSEWHERE CLASSIFIED 09/07/2013 ZENA UMANZOR APRN T 416.9 CHRONIC PULMONARY HEART DISEASE UNSPECIFIED 09/07/2013 ZENA UMANZOR APRN T 496 CHRONIC AIRWAY OBSTRUCTION NOT ELSEWHERE CLASSIFIED 09/07/2013 ZENA UMANZOR APRN T 416.9 CHRONIC PULMONARY HEART DISEASE UNSPECIFIED 09/07/2013 ZENA UMANZOR APRN T 496 CHRONIC AIRWAY OBSTRUCTION NOT ELSEWHERE CLASSIFIED 09/07/2013 ZENA UMANZOR APRN T 416.9 CHRONIC PULMONARY HEART DISEASE UNSPECIFIED 09/07/2013 ZENA UMANZOR APRN T 496 CHRONIC AIRWAY OBSTRUCTION NOT ELSEWHERE CLASSIFIED 09/07/2013 ZENA UMANZOR APRN T 416.9 CHRONIC PULMONARY HEART DISEASE UNSPECIFIED 09/07/2013 ZENA UMANZOR APRN T 496 CHRONIC AIRWAY OBSTRUCTION NOT ELSEWHERE CLASSIFIED 09/07/2013 ZENA UMANZOR APRN T 416.9 CHRONIC PULMONARY HEART DISEASE UNSPECIFIED 09/07/2013 ZENA UMANZOR APRN T 496 CHRONIC AIRWAY OBSTRUCTION NOT ELSEWHERE CLASSIFIED 09/07/2013 LOPEZ DO, JESSE K 416.9 CHRONIC PULMONARY HEART DISEASE UNSPECIFIED 09/07/2013 LOPEZ DO, JESSE K 496 CHRONIC AIRWAY OBSTRUCTION NOT ELSEWHERE CLASSIFIED 09/07/2013 LOPEZ DO, JESSE K 416.9 CHRONIC PULMONARY HEART DISEASE UNSPECIFIED 09/07/2013 LOPEZ DO, JESSE K 496 CHRONIC AIRWAY OBSTRUCTION NOT ELSEWHERE CLASSIFIED 09/07/2013 ZENA UMANZOR APRN T 416.9 CHRONIC PULMONARY HEART DISEASE UNSPECIFIED 09/07/2013 ZENA UMANZOR APRN T 496 CHRONIC AIRWAY OBSTRUCTION NOT ELSEWHERE CLASSIFIED 09/07/2013 ZENA UMANZOR APRN T 416.9 CHRONIC PULMONARY HEART DISEASE UNSPECIFIED 09/07/2013 ZENA UMANZOR APRN T 496 CHRONIC AIRWAY OBSTRUCTION NOT ELSEWHERE CLASSIFIED 09/07/2013 YAMILETH LAURENT MD 416.9 CHRONIC PULMONARY HEART DISEASE UNSPECIFIED 09/07/2013 YAMILETH LAURENT MD 49Liz CHRONIC AIRWAY OBSTRUCTION NOT ELSEWHERE CLASSIFIED 09/07/2013 ZENA UMANZOR APRN 416.9 CHRONIC PULMONARY HEART DISEASE UNSPECIFIED 09/07/2013 NOÉ SALES PRODUCER, ZENA T 496 CHRONIC AIRWAY OBSTRUCTION NOT ELSEWHERE CLASSIFIED 09/07/2013 ZENA UMANZOR APRN T 416.9 CHRONIC PULMONARY HEART DISEASE UNSPECIFIED 09/07/2013 ZENA UMANZOR APRN T 496 CHRONIC AIRWAY OBSTRUCTION NOT ELSEWHERE CLASSIFIED 09/07/2013 ZENA UMANZOR APRN T 416.9 CHRONIC PULMONARY HEART DISEASE UNSPECIFIED 09/07/2013 ZENA UMANZOR APRN T 496 CHRONIC AIRWAY OBSTRUCTION NOT ELSEWHERE CLASSIFIED 09/07/2013 ZENA UMANZOR APRN T 416.9 CHRONIC PULMONARY HEART DISEASE UNSPECIFIED 09/07/2013 ZENA UMANZOR APRN T 496 CHRONIC AIRWAY OBSTRUCTION NOT ELSEWHERE CLASSIFIED 09/07/2013 ZENA UMANZOR APRN T 416.9 CHRONIC PULMONARY HEART DISEASE UNSPECIFIED 09/07/2013 ZENA UMANZOR APRN T 496 CHRONIC AIRWAY OBSTRUCTION NOT ELSEWHERE CLASSIFIED 09/07/2013 ZENA UMANZOR APRN T 416.9 CHRONIC PULMONARY HEART DISEASE UNSPECIFIED 09/07/2013 ZENA UMANZOR APRN T 496 CHRONIC AIRWAY OBSTRUCTION NOT ELSEWHERE CLASSIFIED 09/07/2013 LOPEZ DO, JESSE K 416.9 CHRONIC PULMONARY HEART DISEASE UNSPECIFIED 09/07/2013 LOPEZ DO, JESSE K 496 CHRONIC AIRWAY OBSTRUCTION NOT ELSEWHERE CLASSIFIED 09/07/2013 ZENA UMANZOR APRN T 416.9 CHRONIC PULMONARY HEART DISEASE UNSPECIFIED 09/07/2013 ZENA UMANZOR APRN T 496 CHRONIC AIRWAY OBSTRUCTION NOT ELSEWHERE CLASSIFIED 09/07/2013 ZENA UMANZOR APRN T 416.9 CHRONIC PULMONARY HEART DISEASE UNSPECIFIED 09/07/2013 ZEAN UMANZOR APRN T 496 CHRONIC AIRWAY OBSTRUCTION NOT ELSEWHERE CLASSIFIED 09/07/2013 LOPEZ DO, JESSE K 416.9 CHRONIC PULMONARY HEART DISEASE UNSPECIFIED 09/07/2013 LOPEZ DO, JESSE K 496 CHRONIC AIRWAY OBSTRUCTION NOT ELSEWHERE CLASSIFIED 09/07/2013 LOPEZ DO, JESSE K 416.9 CHRONIC PULMONARY HEART DISEASE UNSPECIFIED 09/07/2013 LOPEZ DO, JESSE K 496 CHRONIC AIRWAY OBSTRUCTION NOT ELSEWHERE CLASSIFIED 09/07/2013 ZENA UMANZOR APRN T 416.9 CHRONIC PULMONARY HEART DISEASE UNSPECIFIED 09/07/2013 ZENA UMANZOR APRN T 496 CHRONIC AIRWAY OBSTRUCTION NOT ELSEWHERE CLASSIFIED 10/10/2013 CHRISTY MAR DO Ot 491.21 OBSTR CHRONIC BRONCHITIS, W (ACUTE) EXAC 10/10/2013 CHRISTY MAR DO Ot 786.09 RESPIRATORY ABNORM NEC 10/18/2013 SUSAN DAVIS, ANGIE Treviño Ot 135 SARCOIDOSIS 10/18/2013 ANGIE DAVIS MD Ot 244.9 HYPOTHYROIDISM NOS 10/18/2013 ANGIE DAVIS MD Ot 250.00 DIAB CALIN WO COMPL, TYPE II OR UNSPEC TY 10/18/2013 ANGIE DAVIS MD Ot 272.4 HYPERLIPIDEMIA NEC/NOS 10/18/2013 ANGIE DAVIS MD Ot 278.01 MORBID OBESITY 10/18/2013 ANGIE DAVIS MD Ot 305.1 TOBACCO USE DISORDER 10/18/2013 ANGIE DAVIS MD Ot 338.29 OTHER CHRONIC PAIN 10/18/2013 ANGIE DAVIS MD Ot 401.9 HYPERTENSION NOS 10/18/2013 ANGIE DAVIS MD Ot 416.8 CHR PULMON HEART DIS NEC 10/18/2013 ANGIE DAVIS MD Ot 428.0 CONGESTIVE HEART FAILURE NOS 10/18/2013 ANGIE DAVIS MD Ot 428.30 UNSPEC DIASTOLIC HRT FAILURE 10/18/2013 ANGIE DAVIS MD Ot 459.81 VENOUS INSUFFICIENCY NOS 10/18/2013 ANGIE DAVIS MD Ot 478.33 VOCAL PARAL BILAT PART 10/18/2013 ANGIE DAVIS MD Ot 491.21 OBSTR CHRONIC BRONCHITIS, W (ACUTE) EXAC 10/18/2013 ANGIE DAVIS MD Ot 518.84 ACUTE AND CHRONIC RESPIRATORY FAILURE 10/18/2013 ANGIE DAVIS MD Ot 782.3 EDEMA 10/18/2013 ANIGE DAVIS MD Ot 785.0 TACHYCARDIA NOS 10/18/2013 ANGIE DAVIS MD Ot V46.2 SUPPLEMENTAL OXYGEN 10/18/2013 ANGIE DAVIS MD Ot V58.65 LONG-TERM(CURRENT)USE OF STEROIDS 10/18/2013 ANGIE DAVIS MD Ot V85.43 BODY MASS INDEX 50.0-59.9, ADULT 10/26/2013 YAMILETH LAURENT MD 459.81 VENOUS (PERIPHERAL) INSUFFICIENCY UNSPECIFIED 10/26/2013 JESSE LOPEZ DO 459.81 VENOUS (PERIPHERAL) INSUFFICIENCY UNSPECIFIED 10/26/2013 JESSE LOPEZ DO 459.81 VENOUS (PERIPHERAL) INSUFFICIENCY UNSPECIFIED 10/26/2013 JESSE LOPEZ DO 459.81 VENOUS (PERIPHERAL) INSUFFICIENCY UNSPECIFIED 10/26/2013 JOHN CASE JESSE K 459.81 VENOUS (PERIPHERAL) INSUFFICIENCY UNSPECIFIED 10/26/2013 YAMILETH LAURENT MD 459.81 VENOUS (PERIPHERAL) INSUFFICIENCY UNSPECIFIED 10/26/2013 YAMILETH LAURENT MD 459.81 VENOUS (PERIPHERAL) INSUFFICIENCY UNSPECIFIED 10/26/2013 LOPEZ , JESSE K 459.81 VENOUS (PERIPHERAL) INSUFFICIENCY UNSPECIFIED 10/26/2013 YAMILETH LAURENT MD 459.81 VENOUS (PERIPHERAL) INSUFFICIENCY UNSPECIFIED 10/26/2013 ZENA UMANZOR APRN 459.81 VENOUS (PERIPHERAL) INSUFFICIENCY UNSPECIFIED 10/26/2013 ZENA UMANZOR APRN 459.81 VENOUS (PERIPHERAL) INSUFFICIENCY UNSPECIFIED 10/26/2013 ZENA UMANZOR APRN 459.81 VENOUS (PERIPHERAL) INSUFFICIENCY UNSPECIFIED 10/26/2013 ZENA UMANZOR APRN 459.81 VENOUS (PERIPHERAL) INSUFFICIENCY UNSPECIFIED 10/26/2013 CLEO LOPEZ DOA K 459.81 VENOUS (PERIPHERAL) INSUFFICIENCY UNSPECIFIED 10/26/2013 ZENA UMANZOR APRN 459.81 VENOUS (PERIPHERAL) INSUFFICIENCY UNSPECIFIED 10/26/2013 ZENA UMANZOR APRN 459.81 VENOUS (PERIPHERAL) INSUFFICIENCY UNSPECIFIED 10/26/2013 ZENA UMANZOR APRN 459.81 VENOUS (PERIPHERAL) INSUFFICIENCY UNSPECIFIED 10/26/2013 ZENA UMANZOR APRN 459.81 VENOUS (PERIPHERAL) INSUFFICIENCY UNSPECIFIED 10/26/2013 ZENA UMANZOR APRN 459.81 VENOUS (PERIPHERAL) INSUFFICIENCY UNSPECIFIED 10/26/2013 JOHN CASE JESSE K 459.81 VENOUS (PERIPHERAL) INSUFFICIENCY UNSPECIFIED 10/26/2013 LOPEZ DO JESSE K 459.81 VENOUS (PERIPHERAL) INSUFFICIENCY UNSPECIFIED 10/26/2013 ZENA UMANZOR APRN 459.81 VENOUS (PERIPHERAL) INSUFFICIENCY UNSPECIFIED 10/26/2013 ZENA UMANZOR APRN 459.81 VENOUS (PERIPHERAL) INSUFFICIENCY UNSPECIFIED 10/26/2013 YAMILETH LAURENT MD 459.81 VENOUS (PERIPHERAL) INSUFFICIENCY UNSPECIFIED 10/26/2013 ZENA UMANZOR APRN 459.81 VENOUS (PERIPHERAL) INSUFFICIENCY UNSPECIFIED 10/26/2013 ZENA UMANZOR APRN 459.81 VENOUS (PERIPHERAL) INSUFFICIENCY UNSPECIFIED 10/26/2013 ZENA UMANZOR APRN 459.81 VENOUS (PERIPHERAL) INSUFFICIENCY UNSPECIFIED 10/26/2013 ZENA UMANZOR APRN 459.81 VENOUS (PERIPHERAL) INSUFFICIENCY UNSPECIFIED 10/26/2013 ZENA UMANZOR APRN 459.81 VENOUS (PERIPHERAL) INSUFFICIENCY UNSPECIFIED 10/26/2013 ZENA UMANZOR APRN 459.81 VENOUS (PERIPHERAL) INSUFFICIENCY UNSPECIFIED 10/26/2013 JESSE LOPEZ DO 459.81 VENOUS (PERIPHERAL) INSUFFICIENCY UNSPECIFIED 10/26/2013 ZENA UMANZOR APRN 459.81 VENOUS (PERIPHERAL) INSUFFICIENCY UNSPECIFIED 10/26/2013 ZENA UMANZOR APRN 459.81 VENOUS (PERIPHERAL) INSUFFICIENCY UNSPECIFIED 10/26/2013 JESSE LOPEZ DO K 459.81 VENOUS (PERIPHERAL) INSUFFICIENCY UNSPECIFIED 10/26/2013 JESSE LOPEZ DO 459.81 VENOUS (PERIPHERAL) INSUFFICIENCY UNSPECIFIED 10/26/2013 ZENA UMANZOR APRN 459.81 VENOUS (PERIPHERAL) INSUFFICIENCY UNSPECIFIED 11/16/2013 JEANETH DAVIS FACC, SOPHIE FACP CCDS Ot 135 SARCOIDOSIS 11/16/2013 JEANETH DAVIS FACC, SOPHIE FACP CCDS Ot 250.00 DIAB CALIN WO COMPL, TYPE II OR UNSPEC TY 11/16/2013 JEANETH DAVIS FACC, ALI FACP CCDS Ot 278.01 MORBID OBESITY 11/16/2013 JEANETH DAVIS FACC, ALI FACP CCDS Ot 278.03 OBESITY HYPOVENTILATION SYNDROME 11/16/2013 JEANETH DAVIS FACC, ALI FACP CCDS Ot 285.9 ANEMIA NOS 11/16/2013 JEANETH DAVIS FACC, SOPHIE FACP CCDS Ot 300.4 DYSTHYMIC DISORDER 11/16/2013 JEANETH DAVIS FACC, SOPHIE FACP CCDS Ot 305.1 TOBACCO USE DISORDER 11/16/2013 JEANETH DAVIS FACC, SOPHIE FACP CCDS Ot 416.8 CHR PULMON HEART DIS NEC 11/16/2013 JEANETH DAVIS FACC, ALI FACP CCDS Ot 493.90 ASTHMA, UNSPECIFIED 11/16/2013 JEANETH DAVIS FACC, ALI FACP CCDS Ot 530.81 ESOPHAGEAL REFLUX 11/16/2013 JEANETH DAVIS FACC, ALI FACP CCDS Ot 729.81 SWELLING OF LIMB 11/16/2013 JEANETH DAVIS FACC, ALI FACP CCDS Ot 786.50 CHEST PAIN NOS 11/16/2013 JEANETH DAVIS FACC, ALI FACP CCDS Ot V58.69 OT MED,LT,CURRENT USE 11/16/2013 JEANETH DAVIS FAC, ALI FACP CCDS Ot V85.43 BODY MASS INDEX 50.0-59.9, ADULT 12/28/2013 JESSE LOPEZ DO 682.6 CELLULITIS AND ABSCESS OF LEG EXCEPT FOOT 12/28/2013 YAMILETH LAURENT MD 682.6 CELLULITIS AND ABSCESS OF LEG EXCEPT FOOT 12/28/2013 ZENA UMANZOR APRN 682.6 CELLULITIS AND ABSCESS OF LEG EXCEPT FOOT 12/28/2013 ZENA UMANZOR APRN T 682.6 CELLULITIS AND ABSCESS OF LEG EXCEPT FOOT 12/28/2013 ZENA UMANZOR APRN T 682.6 CELLULITIS AND ABSCESS OF LEG EXCEPT FOOT 12/28/2013 ZENA UMANZOR APRN T 682.6 CELLULITIS AND ABSCESS OF LEG EXCEPT FOOT 12/28/2013 JESSE LOPEZ DO K 682.6 CELLULITIS AND ABSCESS OF LEG EXCEPT FOOT 12/28/2013 ZENA UMANZOR APRN T 682.6 CELLULITIS AND ABSCESS OF LEG EXCEPT FOOT 12/28/2013 ZEAN UMANZOR APRN T 682.6 CELLULITIS AND ABSCESS OF LEG EXCEPT FOOT 12/28/2013 ZENA UMANZOR APRN T 682.6 CELLULITIS AND ABSCESS OF LEG EXCEPT FOOT 12/28/2013 ZENA UMANZOR APRN T 682.6 CELLULITIS AND ABSCESS OF LEG EXCEPT FOOT 12/28/2013 ZENA UMANZOR APRN T 682.6 CELLULITIS AND ABSCESS OF LEG EXCEPT FOOT 12/28/2013 JESSE LOPEZ DO K 682.6 CELLULITIS AND ABSCESS OF LEG EXCEPT FOOT 12/28/2013 JESSE LOPEZ DO K 682.6 CELLULITIS AND ABSCESS OF LEG EXCEPT FOOT 12/28/2013 ZENA UMANZOR APRN T 682.6 CELLULITIS AND ABSCESS OF LEG EXCEPT FOOT 12/28/2013 ZENA UMANZOR APRN T 682.6 CELLULITIS AND ABSCESS OF LEG EXCEPT FOOT 12/28/2013 YAMILETH LAURENT MD 682.6 CELLULITIS AND ABSCESS OF LEG EXCEPT FOOT 12/28/2013 ZENA UMANZOR APRN T 682.6 CELLULITIS AND ABSCESS OF LEG EXCEPT FOOT 12/28/2013 ZENA UMANZOR APRN T 682.6 CELLULITIS AND ABSCESS OF LEG EXCEPT FOOT 12/28/2013 ZENA UMANZOR APRN 682.6 CELLULITIS AND ABSCESS OF LEG EXCEPT FOOT 12/28/2013 ZENA UMANZOR APRN 682.6 CELLULITIS AND ABSCESS OF LEG EXCEPT FOOT 12/28/2013 ZENA UMANZOR APRN 682.6 CELLULITIS AND ABSCESS OF LEG EXCEPT FOOT 12/28/2013 ZENA UMANZOR APRN 682.6 CELLULITIS AND ABSCESS OF LEG EXCEPT FOOT 12/28/2013 JESSE LOPEZ DO 682.6 CELLULITIS AND ABSCESS OF LEG EXCEPT FOOT 12/28/2013 ZENA UMANZOR APRN 682.6 CELLULITIS AND ABSCESS OF LEG EXCEPT FOOT 12/28/2013 ZENA UMANZOR APRN 682.6 CELLULITIS AND ABSCESS OF LEG EXCEPT FOOT 12/28/2013 JESSE OLPEZ DO 682.6 CELLULITIS AND ABSCESS OF LEG EXCEPT FOOT 12/28/2013 JESSE LOPEZ DO 682.6 CELLULITIS AND ABSCESS OF LEG EXCEPT FOOT 12/28/2013 ZENA UMANZOR APRN 682.6 CELLULITIS AND ABSCESS OF LEG EXCEPT FOOT 01/03/2014 BRAD RAMESH MD Ot 135 SARCOIDOSIS 01/03/2014 BRAD RAMESH MD Ot 244.9 HYPOTHYROIDISM NOS 01/03/2014 BRAD RAMESH MD Ot 250.00 DIAB CALIN WO COMPL, TYPE II OR UNSPEC TY 01/03/2014 BRAD RAMESH MD Ot 272.0 PURE HYPERCHOLESTEROLEM 01/03/2014 BRAD RAMESH MD Ot 276.8 HYPOPOTASSEMIA 01/03/2014 BRAD RAMESH MD Ot 278.01 MORBID OBESITY 01/03/2014 BRAD RAMESH MD Ot 285.9 ANEMIA NOS 01/03/2014 BRAD RAMESH MD Ot 288.60 LEUKOCYTOSIS, UNSPECIFIED 01/03/2014 BRAD RAMESH MD Ot 300.00 ANXIETY STATE NOS 01/03/2014 BRAD RAMESH MD Ot 305.1 TOBACCO USE DISORDER 01/03/2014 BRAD RAMESH MD Ot 311 DEPRESSIVE DISORDER NEC 01/03/2014 BRAD RAMESH MD Ot 355.9 MONONEURITIS NOS 01/03/2014 BRAD RAMESH MD Ot 397.0 TRICUSPID VALVE DISEASE 01/03/2014 BRAD RAMESH MD Ot 401.9 HYPERTENSION NOS 01/03/2014 BRAD RAMESH MD Ot 424.0 MITRAL VALVE DISORDER 01/03/2014 BRAD RAMESH MD Ot 425.4 PRIM CARDIOMYOPATHY NEC 01/03/2014 BRAD RAMESH MD Ot 428.0 CONGESTIVE HEART FAILURE NOS 01/03/2014 BRAD RAMESH MD Ot 478.30 VOCAL CORD PARALYSIS NOS 01/03/2014 BRAD RAMESH MD Ot 491.20 OBSTR CHRONIC BRONCHITIS, W/O EXACERBATI 01/03/2014 BRAD RAMESH MD Ot 530.81 ESOPHAGEAL REFLUX 01/03/2014 BRAD RAMESH MD Ot 573.9 LIVER DISORDER NOS 01/03/2014 BRAD RAMESH MD Ot 682.6 CELLULITIS OF LEG 01/03/2014 BRAD RAMESH MD Ot 724.5 BACKACHE NOS 01/03/2014 BRAD RAMESH MD Ot 729.1 MYALGIA AND MYOSITIS NOS 01/03/2014 BRAD RAMESH MD Ot 780.57 UNSPECIFIED SLEEP APNEA 01/03/2014 BRAD RAMESH MD Ot 787.20 DYSPHAGIA, UNSPECIFIED 01/03/2014 BRAD RAMESH MD Ot V85.43 BODY MASS INDEX 50.0-59.9, ADULT 01/12/2014 YAMILETH LAURENT MD Ot 135 SARCOIDOSIS 01/12/2014 YAMILETH LAUERNT MD Ot 244.9 HYPOTHYROIDISM NOS 01/12/2014 YAMILETH LAURENT MD Ot 250.00 DIAB CALIN WO COMPL, TYPE II OR UNSPEC TY 01/12/2014 YAMILETH LAURENT MD Ot 272.0 PURE HYPERCHOLESTEROLEM 01/12/2014 YAMILETH LAURENT MD Ot 276.1 HYPOSMOLALITY 01/12/2014 YAMILETH LAURENT MD Ot 276.8 HYPOPOTASSEMIA 01/12/2014 YAMILETH LAURENT MD Ot 278.01 MORBID OBESITY 01/12/2014 YAMILETH LAURENT MD Ot 305.1 TOBACCO USE DISORDER 01/12/2014 YAMILETH LAURENT MD Ot 401.9 HYPERTENSION NOS 01/12/2014 YAMILETH LAURENT MD Ot 425.4 PRIM CARDIOMYOPATHY NEC 01/12/2014 YAMILETH LAURENT MD Ot 428.0 CONGESTIVE HEART FAILURE NOS 01/12/2014 YAMILETH LAURENT MD Ot 458.9 HYPOTENSION NOS 01/12/2014 YAMILETH LAURENT MD Ot 459.81 VENOUS INSUFFICIENCY NOS 01/12/2014 YAMILETH LAURENT MD Ot 496 CHR AIRWAY OBSTRUCT NEC 01/12/2014 YAMILETH LAURENT MD Ot 518.83 CHRONIC RESPIRATORY FAILURE 01/12/2014 YAMILETH LAURENT MD Ot 682.6 CELLULITIS OF LEG 01/12/2014 YAMILETH LAURENT MD Ot V15.81 HX OF PAST NONCOMPLIANCE 01/12/2014 YAMILETH LAURENT MD Ot V85.43 BODY MASS INDEX 50.0-59.9, ADULT 01/16/2014 CHRISTY MAR DO Ot 891.0 OPEN WND KNEE/LEG/ANKLE 01/16/2014 SUNI MAR DOA K Ot E000.8 OTHER EXTERNAL CAUSE STATUS 01/16/2014 CHRISTY MAR DO K Ot E928.9 ACCIDENT NOS 01/18/2014 NOÉ NETTLES ZENA T 285.9 ANEMIA 01/18/2014 NOÉ NETTLES ZENA T 288.60 LEUKOCYTOSIS 01/18/2014 NOÉ NETTLES ZENA T 285.9 ANEMIA 01/18/2014 NOÉ NETTLES ZENA T 288.60 LEUKOCYTOSIS 01/18/2014 LOPEZ DO, JESSE K 285.9 ANEMIA 01/18/2014 LOPEZ DO, JESSE K 288.60 LEUKOCYTOSIS 01/18/2014 NOÉ NETTLES ZENA T 285.9 ANEMIA 01/18/2014 NOÉ NETTLES ZENA T 288.60 LEUKOCYTOSIS 01/18/2014 NOÉ NETTLES ZENA T 285.9 ANEMIA 01/18/2014 NOÉ NETTLES ZENA T 288.60 LEUKOCYTOSIS 01/18/2014 NOÉ NETTLES ZENA T 285.9 ANEMIA 01/18/2014 NOÉ NETTLES ZENA T 288.60 LEUKOCYTOSIS 01/18/2014 NOÉ NETTLES ZENA T 285.9 ANEMIA 01/18/2014 NOÉ NETTLES ZENA T 288.60 LEUKOCYTOSIS 01/18/2014 NOÉ NETTLES ZENA T 285.9 ANEMIA 01/18/2014 NOÉ NETTLES ZENA T 288.60 LEUKOCYTOSIS 01/18/2014 LOPEZ DO, JESSE K 285.9 ANEMIA 01/18/2014 LOPEZ DO, JESSE K 288.60 LEUKOCYTOSIS 01/18/2014 LOPEZ DO, JESSE K 285.9 ANEMIA 01/18/2014 LOPEZ DO, JESSE K 288.60 LEUKOCYTOSIS 01/18/2014 NOÉ SALES PRODUCER, ZENA T 285.9 ANEMIA 01/18/2014 NOÉ SALES PRODUCER, ZENA T 288.60 LEUKOCYTOSIS 01/18/2014 NOÉ SALES PRODUCER, ZENA T 285.9 ANEMIA 01/18/2014 NOÉ SALES PRODUCER, ZENA T 288.60 LEUKOCYTOSIS 01/18/2014 YAMILETH LAURENT MD 285.9 ANEMIA 01/18/2014 YAMILETH LAURENT MD 288.60 LEUKOCYTOSIS 01/18/2014 NOÉ SALES PRODUCER, ZENA T 285.9 ANEMIA 01/18/2014 NOÉ SALES PRODUCER, ZENA T 288.60 LEUKOCYTOSIS 01/18/2014 NOÉ SALES PRODUCER, ZENA T 285.9 ANEMIA 01/18/2014 NOÉ SALES PRODUCER, ZENA T 288.60 LEUKOCYTOSIS 01/18/2014 NOÉ SALES PRODUCER, ZENA T 285.9 ANEMIA 01/18/2014 NOÉ SALES PRODUCER, ZENA T 288.60 LEUKOCYTOSIS 01/18/2014 NOÉ SALES PRODUCER, ZENA T 285.9 ANEMIA 01/18/2014 NOÉ SALES PRODUCER, EZNA T 288.60 LEUKOCYTOSIS 01/18/2014 NOÉ SALES PRODUCER, ZENA T 285.9 ANEMIA 01/18/2014 NOÉ SALES PRODUCER, ZENA T 288.60 LEUKOCYTOSIS 01/18/2014 NOÉ SALES PRODUCER, ZENA T 285.9 ANEMIA 01/18/2014 NOÉ SALES PRODUCER, ZENA T 288.60 LEUKOCYTOSIS 01/18/2014 LOPEZ DO, JESSE K 285.9 ANEMIA 01/18/2014 LOPEZ DO, JESSE K 288.60 LEUKOCYTOSIS 01/18/2014 NOÉ SALES PRODUCER, ZENA T 285.9 ANEMIA 01/18/2014 NOÉ SALES PRODUCER, ZENA T 288.60 LEUKOCYTOSIS 01/18/2014 NOÉ SALES PRODUCER, ZENA T 285.9 ANEMIA 01/18/2014 NOÉ SALES PRODUCER, ZENA T 288.60 LEUKOCYTOSIS 01/18/2014 LOPEZ DO, JESSE K 285.9 ANEMIA 01/18/2014 LOPEZ DO, JESSE K 288.60 LEUKOCYTOSIS 01/18/2014 LOPEZ DO, JESSE K 285.9 ANEMIA 01/18/2014 LOPEZ DO, JESSE K 288.60 LEUKOCYTOSIS 01/18/2014 NOÉ SALES PRODUCER, ZENA T 285.9 ANEMIA 01/18/2014 NOÉ SALES PRODUCER, ZENA T 288.60 LEUKOCYTOSIS 03/01/2014 YAMILETH LAURENT MD Ot 276.8 HYPOPOTASSEMIA 03/01/2014 YAMILETH LAURENT MD Ot 454.0 LEG VARICOSITY W ULCER 03/18/2014 LOPEZ DO JESSE Estrada Ot 135 SARCOIDOSIS 03/18/2014 JOHN CASE JESSE K Ot 244.9 HYPOTHYROIDISM NOS 03/18/2014 JOHN CASE JESSE K Ot 250.00 DIAB CALIN WO COMPL, TYPE II OR UNSPEC TY 03/18/2014 LOPEZ DO JESSE K Ot 276.8 HYPOPOTASSEMIA 03/18/2014 JOHN CASE JESSE K Ot 278.03 OBESITY HYPOVENTILATION SYNDROME 03/18/2014 JOHN CASE JESSE K Ot 288.60 LEUKOCYTOSIS, UNSPECIFIED 03/18/2014 LOPEZ DO JESSE K Ot 305.1 TOBACCO USE DISORDER 03/18/2014 JOHN CASE JESSE K Ot 428.0 CONGESTIVE HEART FAILURE NOS 03/18/2014 JOHN CASE JESSE K Ot 428.33 ACUTE CHRONIC DIASTOLIC HRT FAILURE 03/18/2014 JOHN CASE JESSE Estrada Ot 496 CHR AIRWAY OBSTRUCT NEC 03/18/2014 LOPEZ DO JESSE Estrada Ot 593.9 RENAL URETERAL DIS NOS 03/18/2014 LOPEZ DO JESSE K Ot 682.6 CELLULITIS OF LEG 03/18/2014 LOPEZ DO JESSE Estrada Ot E932.0 ADV EFF CORTICOSTEROIDS 03/18/2014 LOPEZ DO JESSE Estrada Ot V15.81 HX OF PAST NONCOMPLIANCE 03/18/2014 LOPEZ DO JESSE Estrada Ot V46.2 SUPPLEMENTAL OXYGEN 03/18/2014 JOHN CASE JESSE Estrada Ot V85.43 BODY MASS INDEX 50.0-59.9, ADULT 05/12/2014 YAMILETH LAURENT MD Ot 135 SARCOIDOSIS 05/12/2014 YAMILETH LAURENT MD Ot 244.9 HYPOTHYROIDISM NOS 05/12/2014 YAMILETH LAURENT MD Ot 250.00 DIAB CALIN WO COMPL, TYPE II OR UNSPEC TY 05/12/2014 YAMILETH LAURENT MD Ot 276.8 HYPOPOTASSEMIA 05/12/2014 YAMILETH LAURENT MD Ot 305.1 TOBACCO USE DISORDER 05/12/2014 YAMILETH LAURENT MD Ot 311 DEPRESSIVE DISORDER NEC 05/12/2014 YAMILETH LAURENT MD Ot 416.8 CHR PULMON HEART DIS NEC 05/12/2014 YAMILETH LAURENT MD Ot 428.0 CONGESTIVE HEART FAILURE NOS 05/12/2014 YAMILETH LAURENT MD Ot 428.30 UNSPEC DIASTOLIC HRT FAILURE 05/12/2014 YAMILETH LAURENT MD Ot 459.81 VENOUS INSUFFICIENCY NOS 05/12/2014 YAMILETH LAURENT MD Ot 496 CHR AIRWAY OBSTRUCT NEC 05/12/2014 YAMILETH LAURENT MD Ot 682.6 CELLULITIS OF LEG 05/12/2014 YAMILETH LAURENT MD Ot 787.20 DYSPHAGIA, UNSPECIFIED 05/17/2014 JOHN CASE, JESSE K 278.03 OBESITY HYPOVENTILATION SYNDROME 05/17/2014 ZENA UMANZOR APRN T 278.03 OBESITY HYPOVENTILATION SYNDROME 05/17/2014 ZENA UMANZOR APRN 278.03 OBESITY HYPOVENTILATION SYNDROME 05/17/2014 YAMILETH LAURENT MD 278.03 OBESITY HYPOVENTILATION SYNDROME 05/17/2014 ZENA UMANZOR APRN T 278.03 OBESITY HYPOVENTILATION SYNDROME 05/17/2014 ZENA UMANZOR APRN T 278.03 OBESITY HYPOVENTILATION SYNDROME 05/17/2014 ZENA UMANZOR APRN T 278.03 OBESITY HYPOVENTILATION SYNDROME 05/17/2014 ZENA UMANZOR APRN T 278.03 OBESITY HYPOVENTILATION SYNDROME 05/17/2014 ZENA UMANZOR APRN T 278.03 OBESITY HYPOVENTILATION SYNDROME 05/17/2014 ZENA UMANZOR APRN T 278.03 OBESITY HYPOVENTILATION SYNDROME 05/17/2014 LOPEZ , JESSE K 278.03 OBESITY HYPOVENTILATION SYNDROME 05/17/2014 ZENA UMANZOR APRN T 278.03 OBESITY HYPOVENTILATION SYNDROME 05/17/2014 ZENA UMANZOR APRN T 278.03 OBESITY HYPOVENTILATION SYNDROME 05/17/2014 LOPEZ DO, JESSE K 278.03 OBESITY HYPOVENTILATION SYNDROME 05/17/2014 LOPEZ DO, JESSE K 278.03 OBESITY HYPOVENTILATION SYNDROME 05/17/2014 ZENA UMANZOR APRN T 278.03 OBESITY HYPOVENTILATION SYNDROME 06/10/2014 YAMILETH LAURENT MD Ot 135 SARCOIDOSIS 06/10/2014 YAMILETH LAURENT MD Ot 276.8 HYPOPOTASSEMIA 06/10/2014 YAMILETH LAURENT MD Ot 278.03 OBESITY HYPOVENTILATION SYNDROME 06/10/2014 YAMILETH LAURENT MD Ot 285.9 ANEMIA NOS 06/10/2014 YAMILETH LAURENT MD Ot 300.00 ANXIETY STATE NOS 06/10/2014 YAMILETH LAURENT MD Ot 305.1 TOBACCO USE DISORDER 06/10/2014 YAMILETH LAURENT MD Ot 311 DEPRESSIVE DISORDER NEC 06/10/2014 YAMILETH LAURENT MD Ot 416.8 CHR PULMON HEART DIS NEC 06/10/2014 YAMILETH LAURENT MD Ot 428.0 CONGESTIVE HEART FAILURE NOS 06/10/2014 YAMILETH LAURENT MD Ot 428.33 ACUTE CHRONIC DIASTOLIC HRT FAILURE 06/10/2014 YAMILETH LAURENT MD Ot 459.81 VENOUS INSUFFICIENCY NOS 06/10/2014 YAMILETH LAURENT MD Ot 478.30 VOCAL CORD PARALYSIS NOS 06/10/2014 YAMILETH LAURENT MD Ot 496 CHR AIRWAY OBSTRUCT NEC 06/10/2014 YAMILETH LAURENT MD Ot 518.84 ACUTE AND CHRONIC RESPIRATORY FAILURE 06/10/2014 YAMILETH LAURENT MD Ot 530.81 ESOPHAGEAL REFLUX 06/10/2014 YAMILETH LAURENT MD Ot 729.1 MYALGIA AND MYOSITIS NOS 06/10/2014 YAMILETH LAURENT MD Ot 780.57 UNSPECIFIED SLEEP APNEA 06/10/2014 YAMILETH LAURENT MD Ot 790.29 OTHER ABNORMAL GLUCOSE 06/10/2014 YAMILETH LAURENT MD Ot E944.4 ADV EFF DIURETICS NEC 06/10/2014 YAMILETH LAURENT MD Ot V15.81 HX OF PAST NONCOMPLIANCE 06/10/2014 YAMILETH LAURENT MD Ot V85.43 BODY MASS INDEX 50.0-59.9, ADULT 06/17/2014 ZENA UMANZOR APRN 305.1 TOBACCO ABUSE 06/17/2014 ZENA UMANZOR APRN 305.1 TOBACCO ABUSE 06/17/2014 YAMILETH LAURENT MD 305.1 TOBACCO ABUSE 06/17/2014 ZENA UMANZOR APRN 305.1 TOBACCO ABUSE 06/17/2014 ZENA UMANZOR APRN 305.1 TOBACCO ABUSE 06/17/2014 ZENA UMANZOR APRN 305.1 TOBACCO ABUSE 06/17/2014 ZENA UMANZOR APRN 305.1 TOBACCO ABUSE 06/17/2014 ZENA UMANZOR APRN 305.1 TOBACCO ABUSE 06/17/2014 ZENA UMANZOR APRN 305.1 TOBACCO ABUSE 06/17/2014 JESSE LOPEZ DO 305.1 TOBACCO ABUSE 06/17/2014 ZENA UMANZOR APRN 305.1 TOBACCO ABUSE 06/17/2014 ZENA UMANZOR APRN 305.1 TOBACCO ABUSE 06/17/2014 JESSE LOPEZ DO K 305.1 TOBACCO ABUSE 06/17/2014 JESSE LOPEZ DO K 305.1 TOBACCO ABUSE 06/17/2014 ZENA UMANZOR APRN 305.1 TOBACCO ABUSE 06/27/2014 YOBANY CLAYTON MD Ot 944.00 BURN NOS HAND-UNSPEC 06/27/2014 YOBANY CLAYTON MD Ot E000.8 OTHER EXTERNAL CAUSE STATUS 06/27/2014 YOBANY CLAYTON MD Ot E924.8 HOT SUBSTANCE ACCID NEC 06/30/2014 CHRISTY MAR DO Ot 307.81 TENSION HEADACHE 06/30/2014 CHRISTY MAR DO Ot 473.0 CHR MAXILLARY SINUSITIS 06/30/2014 CHRISTY MAR DO Ot 784.0 HEADACHE 07/18/2014 ERICA MCPHERSON APRN Ot 491.21 OBSTR CHRONIC BRONCHITIS, W (ACUTE) EXAC 07/18/2014 ERICA MCPHERSON APRN Ot 786.05 SHORTNESS OF BREATH 07/29/2014 ZENA UMANZOR APRN 721.3 LUMBOSACRAL SPONDYLOSIS WITHOUT MYELOPATHY 07/29/2014 ZENA UMANZOR APRN 721.3 LUMBOSACRAL SPONDYLOSIS WITHOUT MYELOPATHY 07/29/2014 ZENA UMANZOR APRN 721.3 LUMBOSACRAL SPONDYLOSIS WITHOUT MYELOPATHY 07/29/2014 ZENA UMANZOR APRN 721.3 LUMBOSACRAL SPONDYLOSIS WITHOUT MYELOPATHY 07/29/2014 ZENA UMANZOR APRN 721.3 LUMBOSACRAL SPONDYLOSIS WITHOUT MYELOPATHY 07/29/2014 JESSE LOPEZ DO 721.3 LUMBOSACRAL SPONDYLOSIS WITHOUT MYELOPATHY 07/29/2014 ZENA UMANZOR APRN 721.3 LUMBOSACRAL SPONDYLOSIS WITHOUT MYELOPATHY 07/29/2014 ZENA UMANZOR APRN 721.3 LUMBOSACRAL SPONDYLOSIS WITHOUT MYELOPATHY 07/29/2014 JESSE LOPEZ DO K 721.3 LUMBOSACRAL SPONDYLOSIS WITHOUT MYELOPATHY 07/29/2014 JESSE LOPEZ DO K 721.3 LUMBOSACRAL SPONDYLOSIS WITHOUT MYELOPATHY 07/29/2014 ZENA UMANZOR APRN T 721.3 LUMBOSACRAL SPONDYLOSIS WITHOUT MYELOPATHY 08/09/2014 Ot 782.0 08/09/2014 Ot 397.0 08/09/2014 Ot 416.8 08/09/2014 Ot 424.0 08/09/2014 Ot 429.3 08/09/2014 Ot 780.52 08/09/2014 Ot 782.3 08/09/2014 Ot 786.05 08/09/2014 Ot 717.7 08/09/2014 Ot 717.3 08/09/2014 Ot V72.81 08/09/2014 Ot V74.8 08/09/2014 Ot 722.93 08/09/2014 Ot 722.52 08/09/2014 Ot V45.4 08/09/2014 Ot V67.09 08/09/2014 Ot 793.7 08/09/2014 Ot V45.4 08/09/2014 Ot V67.09 08/09/2014 Ot 722.52 08/09/2014 Ot 722.10 08/09/2014 Ot 722.52 08/09/2014 Ot V45.4 08/09/2014 Ot 799.02 08/09/2014 Ot 620.2 08/09/2014 Ot 789.00 08/09/2014 Ot 790.6 08/09/2014 Ot 785.1 08/09/2014 Ot 078.89 08/09/2014 Ot 790.6 08/09/2014 Ot 496 08/09/2014 Ot 780.4 08/09/2014 Ot 780.79 08/09/2014 Ot 782.3 08/09/2014 Ot 785.1 08/09/2014 Ot 786.05 08/09/2014 Ot 786.50 08/09/2014 Ot V58.66 08/09/2014 Ot V58.69 08/09/2014 Ot V72.63 08/09/2014 Ot V72.81 08/09/2014 Ot 244.9 08/09/2014 Ot 782.3 08/09/2014 Ot 721.3 08/09/2014 Ot 722.52 08/09/2014 Ot 782.3 08/09/2014 Ot V45.4 08/09/2014 Ot 729.81 08/09/2014 Ot V58.69 08/09/2014 Ot 327.23 08/09/2014 Ot 496 08/09/2014 Ot 571.8 08/09/2014 Ot 786.05 08/09/2014 Ot V58.69 08/09/2014 Ot 790.5 08/09/2014 Ot 787.20 08/09/2014 JUDY DAVIS, SARAH Law Ot 276.1 08/09/2014 ZENA UMANZOR CLERK TELEGRAPH SERVICE Ot 625.9 08/09/2014 JEANETH DAVIS FACC, ALI FACP CCDS Ot V58.69 08/09/2014 JUDY DAVIS, SARAH Law Ot 729.5 08/09/2014 JUDY DAVIS, SARAH Law Ot 729.81 08/09/2014 BAILUI, BEV L CLERK TELEGRAPH SERVICE Ot 276.8 08/09/2014 BAIMA, BEV L CLERK TELEGRAPH SERVICE Ot 276.8 08/09/2014 BAIMA, BEV L CLERK TELEGRAPH SERVICE Ot V58.69 08/09/2014 ANASTASIIA DAVIS, YAMILETH Cruz Ot 429.3 08/09/2014 ANASTASIIA DAVIS, YAMILETH Cruz Ot 496 08/09/2014 JEANETH DAVIS FACC, ALI FACP CCDS Ot 416.8 08/09/2014 JEANETH DAVIS FACC, ALI FACP CCDS Ot 427.89 08/09/2014 JEANETH DAVIS FACC, ALI FACP CCDS Ot 496 08/09/2014 JEANETH DAVIS FACC, ALI FACP CCDS Ot 785.6 08/09/2014 JEANETH DAVIS FACC, ALI FACP CCDS Ot 786.05 08/09/2014 JEANETH DAVIS FACC, ALI FACP CCDS Ot 786.50 08/09/2014 BAIMA, BEV L CLERK TELEGRAPH SERVICE Ot 278.01 08/09/2014 BAIMA, BEV L CLERK TELEGRAPH SERVICE Ot 278.03 08/09/2014 BAIMA, BEV L CLERK TELEGRAPH SERVICE Ot 305.1 08/09/2014 BAIMA, BEV L CLERK TELEGRAPH SERVICE Ot 397.0 08/09/2014 BAIMA, BEV L CLERK TELEGRAPH SERVICE Ot 416.8 08/09/2014 BAIMA, BEV L CLERK TELEGRAPH SERVICE Ot 424.0 08/09/2014 BAIMA, BEV L CLERK TELEGRAPH SERVICE Ot 429.9 08/09/2014 BAIMA, BEV L CLERK TELEGRAPH SERVICE Ot 496 08/09/2014 BAIBEV POE Merritt CLERK TELEGRAPH SERVICE Ot 786.09 08/09/2014 DARIUSBEV POE Merritt CLERK TELEGRAPH SERVICE Ot 276.8 08/09/2014 ODELL BEV L CLERK TELEGRAPH SERVICE Ot 276.8 08/09/2014 SASHA DAVIS, XIAO A Ot 519.19 08/09/2014 SASHA DAVIS, XIAO A Ot 786.6 08/12/2014 ERICA MCPHERSON APRN Ot 780.79 OTH MALAISE FATIGUE 08/12/2014 ERICA MCPHERSON SALES PRODUCER Ot 786.09 RESPIRATORY ABNORM NEC 08/12/2014 ERICA MCPHERSON APRN Ot V58.69 OTH MED,LT,CURRENT USE 08/19/2014 DILCIA YEE MD Ot 276.8 HYPOPOTASSEMIA 08/19/2014 DILCIA YEE MD Ot 787.01 NAUSEA WITH VOMITING 08/19/2014 DILCIA YEE MD Ot 787.03 VOMITING ALONE 08/19/2014 DILCIA YEE MD Ot 789.06 ABDOMINAL PAIN, EPIGASTRIC 08/26/2014 DILCIA YEE MD Ot 782.3 EDEMA 08/26/2014 DILCIA YEE MD Ot 786.05 SHORTNESS OF BREATH 09/21/2014 ZENA UMANZOR APRN 466.0 BRONCHITIS, ACUTE 09/21/2014 LOPEZ DO, JESSE K 466.0 BRONCHITIS, ACUTE 09/21/2014 LOPEZ DO, JESSE K 466.0 BRONCHITIS, ACUTE 09/21/2014 ZENA UMANZOR APRN 466.0 BRONCHITIS, ACUTE 09/28/2014 ZENA UMANZOR CLERK TELEGRAPH SERVICE Ot 285.9 09/29/2014 NADJA BARTHOLOMEW Ot 491.21 OBSTR CHRONIC BRONCHITIS, W (ACUTE) EXAC 09/29/2014 NADJA BARTHOLOMEW Ot 599.0 URIN TRACT INFECTION NOS 09/29/2014 NADJA BARTHOLOMEW Ot 782.3 EDEMA 09/29/2014 NADJA BARTHOLOMEW Ot 786.05 SHORTNESS OF BREATH 09/29/2014 NADJA BARTHOLOMEW Ot 793.19 OTHER NONSPECIFIC ABNORMAL FINDING OF SARANYA 09/29/2014 NADJA BARTHOLOMEW Ot V58.69 OTH MED,LT,CURRENT USE 10/05/2014 JESSE LOPEZ DO 786.6 LUNG MASS 10/05/2014 ZENA UMANZOR APRN 786.6 LUNG MASS 10/09/2014 YAMILETH LAURENT MD Ot 038.9 SEPTICEMIA NOS 10/09/2014 YAMILETH LAURENT MD Ot 135 SARCOIDOSIS 10/09/2014 YAMILETH LAURENT MD Ot 244.9 HYPOTHYROIDISM NOS 10/09/2014 YAMILETH LAURENT MD Ot 250.00 DIAB CALIN WO COMPL, TYPE II OR UNSPEC TY 10/09/2014 YAMILETH LAURENT MD Ot 272.4 HYPERLIPIDEMIA NEC/NOS 10/09/2014 YAMILETH LAURENT MD Ot 275.2 DIS MAGNESIUM METABOLISM 10/09/2014 YAMILETH LAURENT MD Ot 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 10/09/2014 YAMILETH LAURENT MD Ot 278.03 OBESITY HYPOVENTILATION SYNDROME 10/09/2014 YAMILETH LAURENT MD Ot 305.1 TOBACCO USE DISORDER 10/09/2014 YAMILETH LAURENT MD Ot 348.31 METABOLIC ENCEPHALOPATHY 10/09/2014 YAMILETH LAURENT MD Ot 496 CHR AIRWAY OBSTRUCT NEC 10/09/2014 YAMILETH LAURENT MD Ot 507.0 FOOD/VOMIT PNEUMONITIS 10/09/2014 YAMILETH LAURENT MD Ot 518.84 ACUTE AND CHRONIC RESPIRATORY FAILURE 10/09/2014 YAMILETH LAURENT MD Ot 682.6 CELLULITIS OF LEG 10/09/2014 YAMILETH LAURENT MD Ot 782.3 EDEMA 10/09/2014 YAMILETH LAURENT MD Ot 995.92 SEVERE SEPSIS 10/09/2014 YAMILETH LAURENT MD Ot V15.81 HX OF PAST NONCOMPLIANCE 10/09/2014 YAMILETH LAURENT MD Ot V58.65 LONG-TERM(CURRENT)USE OF STEROIDS 10/09/2014 YAMILETH LAURENT MD Ot V85.43 BODY MASS INDEX 50.0-59.9, ADULT 10/17/2014 ZENA UMANZOR CLERK TELEGRAPH SERVICE Ot 285.9 11/04/2014 ZENA UMANZOR APRN 250.00 DIABETES II CONTROLLED (UNCOMPLICATED) 11/18/2014 Ot 397.0 11/18/2014 Ot 416.8 11/18/2014 Ot 424.0 11/18/2014 Ot 429.3 11/18/2014 Ot 780.52 11/18/2014 Ot 782.3 11/18/2014 Ot 786.05 11/18/2014 Ot 717.7 11/18/2014 Ot 717.3 11/18/2014 Ot V72.81 11/18/2014 Ot V74.8 11/18/2014 Ot 722.93 11/18/2014 Ot 722.52 11/18/2014 Ot V45.4 11/18/2014 Ot V67.09 11/18/2014 Ot 793.7 11/18/2014 Ot V45.4 11/18/2014 Ot V67.09 11/18/2014 Ot 722.52 11/18/2014 Ot 722.10 11/18/2014 Ot 722.52 11/18/2014 Ot V45.4 11/18/2014 Ot 799.02 11/18/2014 Ot 620.2 11/18/2014 Ot 789.00 11/18/2014 Ot 790.6 11/18/2014 Ot 785.1 11/18/2014 Ot 078.89 11/18/2014 Ot 790.6 11/18/2014 Ot 496 11/18/2014 Ot 780.4 11/18/2014 Ot 780.79 11/18/2014 Ot 782.3 11/18/2014 Ot 785.1 11/18/2014 Ot 786.05 11/18/2014 Ot 786.50 11/18/2014 Ot V58.66 11/18/2014 Ot V58.69 11/18/2014 Ot V72.63 11/18/2014 Ot V72.81 11/18/2014 Ot 244.9 11/18/2014 Ot 782.3 11/18/2014 Ot 721.3 11/18/2014 Ot 722.52 11/18/2014 Ot 782.3 11/18/2014 Ot V45.4 11/18/2014 Ot 729.81 11/18/2014 Ot V58.69 11/18/2014 Ot 327.23 11/18/2014 Ot 496 11/18/2014 Ot 571.8 11/18/2014 Ot 786.05 11/18/2014 Ot V58.69 11/18/2014 Ot 790.5 11/18/2014 Ot 787.20 11/18/2014 JUDY DAVIS, SARAH Law Ot 276.1 11/18/2014 ZENA UMANZOR CLERK TELEGRAPH SERVICE Ot 625.9 11/18/2014 JEANETH DAVIS FAC, ALI FACP CCDS Ot V58.69 11/18/2014 JUDY DAVIS, SARAH Law Ot 729.5 11/18/2014 JUDY DAVIS, SARAH Law Ot 729.81 11/18/2014 BAIMA, BEV L CLERK TELEGRAPH SERVICE Ot 276.8 11/18/2014 BAIMA, BEV L CLERK TELEGRAPH SERVICE Ot 276.8 11/18/2014 BAIMA, BEV L CLERK TELEGRAPH SERVICE Ot V58.69 11/18/2014 ANASTASIIA DAVIS, YAMILETH Cruz Ot 429.3 11/18/2014 ANASTASIIA DAVIS, YAMILETH Cruz Ot 496 11/18/2014 JEANETH DAVIS FAC, ALI FACP CCDS Ot 416.8 11/18/2014 JEANETH DAVIS FAC, ALI FACP CCDS Ot 427.89 11/18/2014 JEANETH DAVIS FACC, ALI FACP CCDS Ot 496 11/18/2014 JEANETH DAVIS FAC, ALI FACP CCDS Ot 785.6 11/18/2014 JEANETH DAVIS FAC, ALI FACP CCDS Ot 786.05 11/18/2014 JEANETH DAVIS FACC, ALI FACP CCDS Ot 786.50 11/18/2014 BAIMA, BEV L CLERK TELEGRAPH SERVICE Ot 278.01 11/18/2014 BAIMA, BEV L CLERK TELEGRAPH SERVICE Ot 278.03 11/18/2014 BAIMA, BEV L CLERK TELEGRAPH SERVICE Ot 305.1 11/18/2014 BAIMA, BEV L CLERK TELEGRAPH SERVICE Ot 397.0 11/18/2014 BAIMA, BEV L CLERK TELEGRAPH SERVICE Ot 416.8 11/18/2014 BAIMA, BEV L CLERK TELEGRAPH SERVICE Ot 424.0 11/18/2014 BAIMA, BEV L CLERK TELEGRAPH SERVICE Ot 429.9 11/18/2014 BAIMA, BEV L CLERK TELEGRAPH SERVICE Ot 496 11/18/2014 BAIMA, BEV L CLERK TELEGRAPH SERVICE Ot 786.09 11/18/2014 BAIMA, BEV L CLERK TELEGRAPH SERVICE Ot 276.8 11/18/2014 BAIMA, BEV L CLERK TELEGRAPH SERVICE Ot 276.8 11/18/2014 SASHA DAVIS, XIAO A Ot 519.19 11/18/2014 SASHA DAVIS, XIAO A Ot 786.6 11/18/2014 NOÉ ZENA CARRERAP Ot 724.4 11/18/2014 NOÉ ZENA CARRERAP Ot 285.9 11/18/2014 Ot 518.89 11/18/2014 Ot 793.11 12/19/2014 IVAN DAVIS, LANDON A Ot 285.9 12/19/2014 IVAN DAVIS, LANDON A Ot 403.90 12/19/2014 IVAN DAVIS, LANDON A Ot 585.3 12/20/2014 IVAN DAVIS, CRISTIAL A Ot 285.9 12/20/2014 IVAN DAVIS, CRISTIAL A Ot 403.90 12/20/2014 IVAN DAVIS, LANDON A Ot 585.3 12/23/2014 Ot 518.89 12/23/2014 Ot 793.11 12/29/2014 Ot 717.7 12/29/2014 Ot 717.3 12/29/2014 Ot V72.81 12/29/2014 Ot V74.8 12/29/2014 Ot 722.93 12/29/2014 Ot 722.52 12/29/2014 Ot V45.4 12/29/2014 Ot V67.09 12/29/2014 Ot 793.7 12/29/2014 Ot V45.4 12/29/2014 Ot V67.09 12/29/2014 Ot 722.52 12/29/2014 Ot 722.10 12/29/2014 Ot 722.52 12/29/2014 Ot V45.4 12/29/2014 Ot 799.02 12/29/2014 Ot 620.2 12/29/2014 Ot 789.00 12/29/2014 Ot 790.6 12/29/2014 Ot 785.1 12/29/2014 Ot 078.89 12/29/2014 Ot 790.6 12/29/2014 Ot 496 12/29/2014 Ot 780.4 12/29/2014 Ot 780.79 12/29/2014 Ot 782.3 12/29/2014 Ot 785.1 12/29/2014 Ot 786.05 12/29/2014 Ot 786.50 12/29/2014 Ot V58.66 12/29/2014 Ot V58.69 12/29/2014 Ot V72.63 12/29/2014 Ot V72.81 12/29/2014 Ot 244.9 12/29/2014 Ot 782.3 12/29/2014 Ot 721.3 12/29/2014 Ot 722.52 12/29/2014 Ot 782.3 12/29/2014 Ot V45.4 12/29/2014 Ot 729.81 12/29/2014 Ot V58.69 12/29/2014 Ot 327.23 12/29/2014 Ot 496 12/29/2014 Ot 571.8 12/29/2014 Ot 786.05 12/29/2014 Ot V58.69 12/29/2014 Ot 790.5 12/29/2014 Ot 787.20 12/29/2014 JUDY DAVIS, SARAH Law Ot 276.1 12/29/2014 ZENA UMANZOR CLERK TELEGRAPH SERVICE Ot 625.9 12/29/2014 JEANETH DAVIS FAC, ALI FACP CCDS Ot V58.69 12/29/2014 SARAH KIM MD Ot 729.5 12/29/2014 SARAH KIM MD Ot 729.81 12/29/2014 BEV BAIN L CLERK TELEGRAPH SERVICE Ot 276.8 12/29/2014 BEV BAIN L CLERK TELEGRAPH SERVICE Ot 276.8 12/29/2014 BEV BAIN L CLERK TELEGRAPH SERVICE Ot V58.69 12/29/2014 ANASTASIIA DAVIS, YAMILETH Cruz Ot 429.3 12/29/2014 ANASTASIIA DAVIS, YAMILETH Cruz Ot 496 12/29/2014 JEANETH DAVIS FAC, ALI FACP CCDS Ot 416.8 12/29/2014 JEANETH DAVIS FACC, ALI FACP CCDS Ot 427.89 12/29/2014 JEANETH DAVIS FACC, ALI FACP CCDS Ot 496 12/29/2014 JEANETH DAVIS FACC, ALI FACP CCDS Ot 785.6 12/29/2014 JEANETH DAVIS FACC, ALI FACP CCDS Ot 786.05 12/29/2014 JEANETH DAVIS FACC, ALI FACP CCDS Ot 786.50 12/29/2014 BEV BAIN L CLERK TELEGRAPH SERVICE Ot 278.01 12/29/2014 BEV BAIN L CLERK TELEGRAPH SERVICE Ot 278.03 12/29/2014 BEV BAIN L CLERK TELEGRAPH SERVICE Ot 305.1 12/29/2014 BAIMA, BEV L CLERK TELEGRAPH SERVICE Ot 397.0 12/29/2014 BAIMA, BEV L CLERK TELEGRAPH SERVICE Ot 416.8 12/29/2014 BAIMA, BEV L CLERK TELEGRAPH SERVICE Ot 424.0 12/29/2014 BAIMA, BEV L CLERK TELEGRAPH SERVICE Ot 429.9 12/29/2014 BAIMA, BEV L CLERK TELEGRAPH SERVICE Ot 496 12/29/2014 BAIMA, BEV L CLERK TELEGRAPH SERVICE Ot 786.09 12/29/2014 BAIMA, BEV L CLERK TELEGRAPH SERVICE Ot 276.8 12/29/2014 BAIMA, BEV L CLERK TELEGRAPH SERVICE Ot 276.8 12/29/2014 SASHA DAVIS, XIAO A Ot 519.19 12/29/2014 SASHA DAVIS, XIAO A Ot 786.6 12/29/2014 NOÉ ZENA Shrestha CLERK TELEGRAPH SERVICE Ot 724.4 12/29/2014 ZENA UMANZOR CLERK TELEGRAPH SERVICE Ot 285.9 12/29/2014 Ot 518.89 12/29/2014 Ot 793.11 12/29/2014 IVAN DAVIS, CRISTIAL A Ot 285.9 12/29/2014 IVAN DAVIS, CRISTIAL A Ot 403.90 12/29/2014 CRISTI LOVE MDAL A Ot 585.3 12/29/2014 Ot 585.3 12/29/2014 NAKIA DAVIS, DILCIA T Ot 724.2 LUMBAGO 12/29/2014 Ot 585.3 01/02/2015 Ot 518.89 01/02/2015 Ot 793.11 01/13/2015 Ot 585.3 02/16/2015 CRISTI LOVE MDAL A Ot 285.9 ANEMIA NOS 02/16/2015 IVAN DAVIS, CRISTIAL A Ot 403.90 HYPTNSV CHR KID DIS, UNSPEC, W CHR KD ST 02/16/2015 CRISTI LOVE MDAL A Ot 585.3 CHRONIC KIDNEY DISEASE, STAGE III (MODER 03/29/2015 CHARLES TEMPLETON SALES PRODUCER Ot 135 03/29/2015 CHARLES TEMPLETON SALES PRODUCER Ot 305.1 03/29/2015 CHARLES TEMPLETON SALES PRODUCER Ot 327.23 03/29/2015 CHARLES TEMPLETON SALES PRODUCER Ot 416.8 03/29/2015 CHARLES TEMPLETON SALES PRODUCER Ot 493.90 03/29/2015 MOOK TEMPLETONINE E SALES PRODUCER Ot 786.05 03/29/2015 YOKASTAMOOK MONROEINE E SALES PRODUCER Ot 786.09 04/04/2015 YOKASTA, CHARLES E SALES PRODUCER Ot 135 04/04/2015 YOKASTA, CHARLES E SALES PRODUCER Ot 305.1 04/04/2015 MOOK TEMPLETONINE E SALES PRODUCER Ot 327.23 04/04/2015 MOOK TEMPLETONINE E SALES PRODUCER Ot 416.8 04/04/2015 YOKASTA, CHARLES E SALES PRODUCER Ot 493.90 04/04/2015 YOKASTA, CHARLES E SALES PRODUCER Ot 786.05 04/04/2015 YOKASTAMOOK MONROEINE E SALES PRODUCER Ot 786.09 05/09/2015 TIPPING DO, ARNAV C Ot 244.9 05/09/2015 TIPPING DO, ARNAV C Ot 250.00 05/09/2015 TIPPING DO, ARNAV C Ot 285.9 05/09/2015 TIPPING DO, ARNAV C Ot 403.90 05/09/2015 TIPPING DO, ARNAV C Ot 585.9 05/09/2015 TIPPING DO, ARNAV C Ot 799.02 05/16/2015 TIPPING DO, ARNAV C Ot 244.9 05/16/2015 TIPPING DO, ARNAV C Ot 250.00 05/16/2015 TIPPING DO, ARNAV C Ot 285.9 05/16/2015 TIPPING DO, ARNAV C Ot 403.90 05/16/2015 TIPPING DO, ARNAV C Ot 585.9 05/16/2015 TIPPING DO, ARNAV C Ot 799.02 05/30/2015 ERICA MCPHERSON SALES PRODUCER Ot 787.01 NAUSEA WITH VOMITING 05/30/2015 ERICA MCPHERSON SALES PRODUCER Ot 787.03 VOMITING ALONE 05/30/2015 ERICA MCPHERSON SALES PRODUCER Ot 787.91 DIARRHEA 06/14/2015 LANDON LOVE MD Ot 250.00 06/14/2015 LANDON LOVE MD Ot 428.32 06/14/2015 LANDON LOVE MD Ot 496 06/21/2015 ERICA MCPHERSON SALES PRODUCER Ot 787.01 06/21/2015 ERICA MCPHERSON SALES PRODUCER Ot 787.03 06/21/2015 ERICA MCPHERSON SALES PRODUCER Ot 787.91 06/27/2015 LANDON LOVE MD Ot 250.00 06/27/2015 LANDON LOVE MD Ot 428.32 06/27/2015 LANDON LOVE MD Ot 496 06/28/2015 ERICA MCPHERSON SALES PRODUCER Ot 787.01 06/28/2015 ERICA MCPHERSON SALES PRODUCER Ot 787.03 06/28/2015 ERICA MCPHERSON SALES PRODUCER Ot 787.91 07/24/2015 Ot E11.9 07/24/2015 Ot E78.5 07/24/2015 Ot I12.9 07/24/2015 Ot N18.9 07/24/2015 Ot R09.02 07/26/2015 Ot E11.9 07/26/2015 Ot E78.5 07/26/2015 Ot I12.9 07/26/2015 Ot N18.9 07/26/2015 Ot R09.02 11/28/2015 Ot 717.7 11/28/2015 Ot 717.3 11/28/2015 Ot V72.81 11/28/2015 Ot V74.8 11/28/2015 Ot 722.93 11/28/2015 Ot 722.52 11/28/2015 Ot V45.4 11/28/2015 Ot V67.09 11/28/2015 Ot 793.7 11/28/2015 Ot V45.4 11/28/2015 Ot V67.09 11/28/2015 Ot 722.52 11/28/2015 Ot 722.10 11/28/2015 Ot 722.52 11/28/2015 Ot V45.4 11/28/2015 Ot 799.02 11/28/2015 Ot 620.2 11/28/2015 Ot 789.00 11/28/2015 Ot 790.6 11/28/2015 Ot 785.1 11/28/2015 Ot 078.89 11/28/2015 Ot 790.6 11/28/2015 Ot 496 11/28/2015 Ot 780.4 11/28/2015 Ot 780.79 11/28/2015 Ot 782.3 11/28/2015 Ot 785.1 11/28/2015 Ot 786.05 11/28/2015 Ot 786.50 11/28/2015 Ot V58.66 11/28/2015 Ot V58.69 11/28/2015 Ot V72.63 11/28/2015 Ot V72.81 11/28/2015 Ot 244.9 11/28/2015 Ot 782.3 11/28/2015 Ot 721.3 11/28/2015 Ot 722.52 11/28/2015 Ot 782.3 11/28/2015 Ot V45.4 11/28/2015 Ot 729.81 11/28/2015 Ot V58.69 11/28/2015 Ot 327.23 11/28/2015 Ot 496 11/28/2015 Ot 571.8 11/28/2015 Ot 786.05 11/28/2015 Ot V58.69 11/28/2015 Ot 790.5 11/28/2015 Ot 787.20 11/28/2015 JUDY DAVIS, SARAH Law Ot 276.1 11/28/2015 ZENA UMANZOR CLERK TELEGRAPH SERVICE Ot 625.9 11/28/2015 JEANETH DAVIS [facility], ALI FACP CCDS Ot V58.69 11/28/2015 JUDY DAVIS, SARAH Law Ot 729.5 11/28/2015 SARAH KIM MD Ot 729.81 11/28/2015 BEV BAIN CLERK TELEGRAPH SERVICE Ot 276.8 11/28/2015 BEV BAIN CLERK TELEGRAPH SERVICE Ot 276.8 11/28/2015 BEV BAIN CLERK TELEGRAPH SERVICE Ot V58.69 11/28/2015 ANASTASIIA DAVIS, YAMILETH Cruz Ot 429.3 11/28/2015 ANASTASIIA DAVIS, YAMILETH F Ot 496 11/28/2015 JEANETH DAVIS [facility], ALI FACP CCDS Ot 416.8 11/28/2015 JEANETH DAVIS FAC, ALI FACP CCDS Ot 427.89 11/28/2015 JEANETH DAVIS FACC, ALI FACP CCDS Ot 496 11/28/2015 JEANETH DAVIS FACC, ALI FACP CCDS Ot 785.6 11/28/2015 JEANETH LYLESC, ALI FACP CCDS Ot 786.05 11/28/2015 JEANETH DAVIS FACC, ALI FACP CCDS Ot 786.50 11/28/2015 BEV BAIN CLERK TELEGRAPH SERVICE Ot 278.01 11/28/2015 BEV BAIN CLERK TELEGRAPH SERVICE Ot 278.03 11/28/2015 BAIMA, BEV L CLERK TELEGRAPH SERVICE Ot 305.1 11/28/2015 BAIMA, BEV L CLERK TELEGRAPH SERVICE Ot 397.0 11/28/2015 BAIMA, BEV L CLERK TELEGRAPH SERVICE Ot 416.8 11/28/2015 BAIMA, BEV L CLERK TELEGRAPH SERVICE Ot 424.0 11/28/2015 BAIMA, BEV L CLERK TELEGRAPH SERVICE Ot 429.9 11/28/2015 BAIMA, BEV L CLERK TELEGRAPH SERVICE Ot 496 11/28/2015 BAIMA, BEV L CLERK TELEGRAPH SERVICE Ot 786.09 11/28/2015 BAIMA, BEV L CLERK TELEGRAPH SERVICE Ot 276.8 11/28/2015 BAIMA, BEV L CLERK TELEGRAPH SERVICE Ot 276.8 11/28/2015 SASHA DAVIS, XIAO A Ot 519.19 11/28/2015 SASHA DAVIS, XIAO A Ot 786.6 11/28/2015 NOÉ ZENA Shrestha CLERK TELEGRAPH SERVICE Ot 724.4 11/28/2015 ZENA UMANZOR CLERK TELEGRAPH SERVICE Ot 285.9 11/28/2015 Ot 518.89 11/28/2015 Ot 793.11 11/28/2015 Ot 585.3 11/28/2015 IVAN DAVIS, TALAL A Ot 285.9 11/28/2015 IVAN DAVIS, TALAL A Ot 403.90 11/28/2015 IVAN DAVIS, TALAL A Ot 585.3 11/28/2015 CHARLES TEMPLETON SALES PRODUCER Ot 135 11/28/2015 CHARLES TEMPLETON SALES PRODUCER Ot 305.1 11/28/2015 CHARLES TEMPLETON SALES PRODUCER Ot 327.23 11/28/2015 CHARLES TEMPLETON SALES PRODUCER Ot 416.8 11/28/2015 CHARLES TEMPLETON SALES PRODUCER Ot 493.90 11/28/2015 CHARLES TEMPLETON SALES PRODUCER Ot 786.05 11/28/2015 CHARLES TEMPLETON SALES PRODUCER Ot 786.09 11/28/2015 TIPPING DO, ARNAV C Ot 244.9 11/28/2015 TIPPING DO, ARNAV C Ot 250.00 11/28/2015 TIPPING DO, ARNAV C Ot 285.9 11/28/2015 TIPPING DO, ARNAV C Ot 403.90 11/28/2015 TIPPING DO, ARNAV C Ot 585.9 11/28/2015 TIPPING DO, ARNAV C Ot 799.02 11/28/2015 IVAN DAVIS, CRISTIAMAYA Davon Ot 250.00 11/28/2015 IVAN DAVIS, LANDON Mays Ot 428.32 11/28/2015 IVAN DAVIS, LANDON Mays Ot 496 11/28/2015 Ot E11.9 11/28/2015 Ot E78.5 11/28/2015 Ot I12.9 11/28/2015 Ot N18.9 11/28/2015 Ot R09.02 12/19/2015 PASCUAL JORGENSEN DO Ot E66.01 12/19/2015 PASCUAL JORGENSEN DO Ot G47.33 12/19/2015 PASCUAL JORGENSEN DO Ot J45.909 12/19/2015 PASCUAL JORGENSEN DO Ot R59.0 01/01/2016 PASCUAL JORGENSEN DO Ot E66.01 01/01/2016 PASCUAL JORGENSEN DO Ot G47.33 01/01/2016 PASCUAL JORGENSEN DO Ot J45.909 01/01/2016 PASCUAL JORGENSEN DO Ot R59.0 01/03/2016 BAIMA, BEV L CLERK TELEGRAPH SERVICE Ot E07.9 01/03/2016 BAIMA, BEV L CLERK TELEGRAPH SERVICE Ot I07.1 01/03/2016 BAIMA, BEV L CLERK TELEGRAPH SERVICE Ot R00.2 01/03/2016 BAIMA, BEV L CLERK TELEGRAPH SERVICE Ot R07.9 01/08/2016 BAIMA, BEV L CLERK TELEGRAPH SERVICE Ot E07.9 DISORDER OF THYROID, UNSPECIFIED 01/08/2016 BAIMA, BEV L CLERK TELEGRAPH SERVICE Ot 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 TRICUSPID INSUFFICIENCY 01/08/2016 BAIMA, BEV L CLERK TELEGRAPH SERVICE Ot R00.2 PALPITATIONS 01/08/2016 BAIMA, BEV L CLERK TELEGRAPH SERVICE Ot R07.9 CHEST PAIN, UNSPECIFIED 01/10/2016 Ot E07.9 DISORDER OF THYROID, UNSPECIFIED 01/10/2016 Ot 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 TRICUSPID INSUFFICIENCY 01/10/2016 Ot R00.2 PALPITATIONS 01/10/2016 Ot R07.9 CHEST PAIN, UNSPECIFIED 01/15/2016 ROBERT ELIZABETH MD Ot R07.9 CHEST PAIN, UNSPECIFIED 01/15/2016 ROBERT ELIZABETH MD Ot R10.13 EPIGASTRIC PAIN 01/15/2016 ROBERT ELIZABETH MD, Ot Z01.818 ENCOUNTER FOR OTHER PREPROCEDURAL EXAMIN 01/17/2016 ROBERT ELIZABETH MD Ot E11.9 TYPE 2 DIABETES MELLITUS WITHOUT COMPLIC 01/17/2016 ROBERT ELIZABETH MD Ot K21.0 GASTRO-ESOPHAGEAL REFLUX DISEASE WITH ES 01/17/2016 ROBERT ELIZABETH MD Ot K29.70 GASTRITIS, UNSPECIFIED, WITHOUT BLEEDING 01/17/2016 ROBERT ELIZABETH MD, Ot K44.9 DIAPHRAGMATIC HERNIA WITHOUT OBSTRUCTION 01/18/2016 ROBERT ELIZABETH MD, Ot E11.9 TYPE 2 DIABETES MELLITUS WITHOUT COMPLIC 01/18/2016 ROBERT ELIZABETH MD Ot K21.0 GASTRO-ESOPHAGEAL REFLUX DISEASE WITH ES 01/18/2016 ROBERT ELIZABETH MD, Ot K29.70 GASTRITIS, UNSPECIFIED, WITHOUT BLEEDING 01/18/2016 ROBERT ELIZABETH MD, Ot K44.9 DIAPHRAGMATIC HERNIA WITHOUT OBSTRUCTION 01/24/2016 ODELL BEV L CLERK TELEGRAPH SERVICE Ot E07.9 DISORDER OF THYROID, UNSPECIFIED 01/24/2016 BAIMA BEV L CLERK TELEGRAPH SERVICE Ot 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 TRICUSPID INSUFFICIENCY 01/24/2016 BAIMA, BEV L CLERK TELEGRAPH SERVICE Ot R00.2 PALPITATIONS 01/24/2016 BAIMA, BEV L CLERK TELEGRAPH SERVICE Ot R07.9 CHEST PAIN, UNSPECIFIED 01/25/2016 BAIMA, BEV L CLERK TELEGRAPH SERVICE Ot E07.9 DISORDER OF THYROID, UNSPECIFIED 01/25/2016 DARIUSMA, BEV L CLERK TELEGRAPH SERVICE Ot 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 TRICUSPID INSUFFICIENCY 01/25/2016 BAIMA, BEV L CLERK TELEGRAPH SERVICE Ot R00.2 PALPITATIONS 01/25/2016 BAIMA, BEV L CLERK TELEGRAPH SERVICE Ot R07.9 CHEST PAIN, UNSPECIFIED 01/25/2016 Ot E07.9 DISORDER OF THYROID, UNSPECIFIED 01/25/2016 Ot 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 TRICUSPID INSUFFICIENCY 01/25/2016 Ot R00.2 PALPITATIONS 01/25/2016 Ot R07.9 CHEST PAIN, UNSPECIFIED 01/31/2016 DARIUSMA BEV L CLERK TELEGRAPH SERVICE Ot E07.9 DISORDER OF THYROID, UNSPECIFIED 01/31/2016 BAIMA BEV L CLERK TELEGRAPH SERVICE Ot 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 TRICUSPID INSUFFICIENCY 01/31/2016 DARIUSMA, BEV L CLERK TELEGRAPH SERVICE Ot R00.2 PALPITATIONS 01/31/2016 BEV BAIN CLERK TELEGRAPH SERVICE Ot R07.9 CHEST PAIN, UNSPECIFIED 02/14/2016 TIPPING DO, ARNAV C Ot D50.9 IRON DEFICIENCY ANEMIA, UNSPECIFIED 02/14/2016 TIPPING DO, ARNAV C Ot E11.9 TYPE 2 DIABETES MELLITUS WITHOUT COMPLIC 03/12/2016 TIPPING DO, ARNAV C Ot D50.9 IRON DEFICIENCY ANEMIA, UNSPECIFIED 03/12/2016 TIPPING DO, ARNAV C Ot E11.9 TYPE 2 DIABETES MELLITUS WITHOUT COMPLIC 03/14/2016 TIPPING DO, ARNAV C Ot D50.9 IRON DEFICIENCY ANEMIA, UNSPECIFIED 03/14/2016 TIPPING DO, ARNAV C Ot E11.9 TYPE 2 DIABETES MELLITUS WITHOUT COMPLIC 04/05/2016 ZENA GRAVES DO Ot G43.909 MIGRAINE, UNSP, NOT INTRACTABLE, WITHOUT 04/08/2016 ZENA GRAVES DO Ot G43.909 MIGRAINE, UNSP, NOT INTRACTABLE, WITHOUT 04/22/2016 ZENA GRAVES DO Ot G43.909 MIGRAINE, UNSP, NOT INTRACTABLE, WITHOUT 08/06/2016 Ot 722.52 LUMB/ LUMBOSAC DISC DEGEN 08/06/2016 Ot V45.4 ARTHRODESIS STATUS 08/06/2016 Ot V67.09 SURGERY FOLLOW-UP, OTHER SURGERY 08/06/2016 Ot 793.7 NOSP (ABN) FINDINGS ON RADIOLOGICAL OT 08/06/2016 Ot V45.4 ARTHRODESIS STATUS 08/06/2016 Ot V67.09 SURGERY FOLLOW-UP, OTHER SURGERY 08/06/2016 Ot 722.52 LUMB/ LUMBOSAC DISC DEGEN 08/06/2016 Ot 722.10 LUMBAR DISC DISPLACEMENT 08/06/2016 Ot 722.52 LUMB/ LUMBOSAC DISC DEGEN 08/06/2016 Ot V45.4 ARTHRODESIS STATUS 08/06/2016 Ot 799.02 HYPOXEMIA 08/06/2016 Ot 620.2 OVARIAN CYST NEC/NOS 08/06/2016 Ot 789.00 ABDOMINAL PAIN, UNSPECIFIED SITE 08/06/2016 Ot 790.6 ABN BLOOD CHEMISTRY NEC 08/06/2016 Ot 785.1 PALPITATIONS 08/06/2016 Ot 078.89 VIRAL DISEASES NEC 08/06/2016 Ot 790.6 ABN BLOOD CHEMISTRY NEC 08/06/2016 Ot 496 CHR AIRWAY OBSTRUCT NEC 08/06/2016 Ot 780.4 DIZZINESS AND GIDDINESS 08/06/2016 Ot 780.79 OTH MALAISE FATIGUE 08/06/2016 Ot 782.3 EDEMA 08/06/2016 Ot 785.1 PALPITATIONS 08/06/2016 Ot 786.05 SHORTNESS OF BREATH 08/06/2016 Ot 786.50 CHEST PAIN NOS 08/06/2016 Ot V58.66 LONG-TERM ( CURRENT) USE OF ASPIRIN 08/06/2016 Ot V58.69 OTH MED,LT, CURRENT USE 08/06/2016 Ot V72.63 PRE- PROCEDURAL LABORATORY EXAMINATION 08/06/2016 Ot V72.81 EXAM-PRE- OPERATIVE CARDIOVASCULAR 08/06/2016 Ot 244.9 HYPOTHYROIDISM NOS 08/06/2016 Ot 782.3 EDEMA 08/06/2016 Ot 721.3 LUMBOSACRAL SPONDYLOSIS 08/06/2016 Ot 722.52 LUMB/ LUMBOSAC DISC DEGEN 08/06/2016 Ot 782.3 EDEMA 08/06/2016 Ot V45.4 ARTHRODESIS STATUS 08/06/2016 Ot 729.81 SWELLING OF LIMB 08/06/2016 Ot V58.69 OTH MED,LT, CURRENT USE 08/06/2016 Ot 327.23 OBSTRUCTIVE SLEEP APNEA (ADULT) (PEDIATR 08/06/2016 Ot 496 CHR AIRWAY OBSTRUCT NEC 08/06/2016 Ot 571.8 CHRONIC LIVER DIS NEC 08/06/2016 Ot 786.05 SHORTNESS OF BREATH 08/06/2016 Ot V58.69 OTH MED,LT, CURRENT USE 08/06/2016 Ot 790.5 ABN SERUM ENZY LEVEL NEC 08/06/2016 Ot 787.20 DYSPHAGIA, UNSPECIFIED 08/06/2016 JUDY DAVIS, SARAH Law Ot 276.1 HYPOSMOLALITY 08/06/2016 ZENA UMANZOR Ot 625.9 FEM GENITAL SYMPTOMS NOS 08/06/2016 JEANETH DAVIS FACC, SOPHIE FACP CCDS Ot V58.69 OTH MED,LT,CURRENT USE 08/06/2016 SARAH KIM MD Ot 729.5 PAIN IN LIMB 08/06/2016 SARAH KIM MD Ot 729.81 SWELLING OF LIMB 08/06/2016 BAIMA, BEV L CLERK TELEGRAPH SERVICE Ot 276.8 HYPOPOTASSEMIA 08/06/2016 BAIHÉCTOR POEHER L CLERK TELEGRAPH SERVICE Ot 276.8 HYPOPOTASSEMIA 08/06/2016 BEV BAIN L CLERK TELEGRAPH SERVICE Ot V58.69 OT MED,,CURRENT USE 08/06/2016 YAMILETH LAURENT MD Ot 429.3 CARDIOMEGALY 08/06/2016 YAMILETH LAURENT MD Ot 496 CHR AIRWAY OBSTRUCT NEC 08/06/2016 JEANETH DAVIS FACC, ALI FACP CCDS Ot 416.8 CHR PULMON HEART DIS NEC 08/06/2016 JEANETH DAVIS FACC, ALI FACP CCDS Ot 427.89 CARDIAC DYSRHYTHMIAS NEC 08/06/2016 JEANETH DAVIS FACC, ALI FACP CCDS Ot 496 CHR AIRWAY OBSTRUCT NEC 08/06/2016 JEANETH DAVIS FACC, ALI FACP CCDS Ot 785.6 ENLARGEMENT LYMPH NODES 08/06/2016 JEANETH DAVIS FACC, ALI FACP CCDS Ot 786.05 SHORTNESS OF BREATH 08/06/2016 JEANETH DAVIS FAC, ALI FACP CCDS Ot 786.50 CHEST PAIN NOS 08/06/2016 BEV BAIN L CLERK TELEGRAPH SERVICE Ot 278.01 MORBID OBESITY 08/06/2016 BAIHÉCTOR POEHER L CLERK TELEGRAPH SERVICE Ot 278.03 OBESITY HYPOVENTILATION SYNDROME 08/06/2016 BEV BAIN L CLERK TELEGRAPH SERVICE Ot 305.1 TOBACCO USE DISORDER 08/06/2016 HÉCTOR BAINHER L CLERK TELEGRAPH SERVICE Ot 397.0 TRICUSPID VALVE DISEASE 08/06/2016 HÉCTOR BAINHER L CLERK TELEGRAPH SERVICE Ot 416.8 CHR PULMON HEART DIS NEC 08/06/2016 ODELL BEV L CLERK TELEGRAPH SERVICE Ot 424.0 MITRAL VALVE DISORDER 08/06/2016 BAILUI BEV L CLERK TELEGRAPH SERVICE Ot 429.9 HEART DISEASE NOS 08/06/2016 HÉCTOR BAINHER L CLERK TELEGRAPH SERVICE Ot 496 CHR AIRWAY OBSTRUCT NEC 08/06/2016 ODELL BEV L CLERK TELEGRAPH SERVICE Ot 786.09 RESPIRATORY ABNORM NEC 08/06/2016 ODELL BEV L CLERK TELEGRAPH SERVICE Ot 276.8 HYPOPOTASSEMIA 08/06/2016 DARIUSLUI BEV L CLERK TELEGRAPH SERVICE Ot 276.8 HYPOPOTASSEMIA 08/06/2016 SASHA DAVIS, XIAO A Ot 519.19 OTHER DISEASES OF TRACHEA AND BRONCHUS 08/06/2016 SASHA DAVIS, XIAO A Ot 786.6 CHEST SWELLING/MASS/LUMP 08/06/2016 ZENA UMANZOR CLERK TELEGRAPH SERVICE Ot 724.4 LUMBOSACRAL NEURITIS NOS 08/06/2016 ZENA UMANZOR CLERK TELEGRAPH SERVICE Ot 285.9 ANEMIA NOS 08/06/2016 Ot 518.89 OTHER DISEASES OF LUNG, NEC 08/06/2016 Ot 793.11 SOLITARY PULMONARY NODULE 08/06/2016 Ot 585.3 CHRONIC KIDNEY DISEASE, STAGE III (MODER 08/06/2016 CRISTI LOVE MDAL A Ot 285.9 ANEMIA NOS 08/06/2016 LANDON LOVE MD A Ot 403.90 HYPTNSV CHR KID DIS, UNSPEC, W CHR KD ST 08/06/2016 LANDON LOVE MD Ot 585.3 CHRONIC KIDNEY DISEASE, STAGE III (MODER 08/06/2016 CHARLES TEMPLETON SALES PRODUCER Ot 135 SARCOIDOSIS 08/06/2016 CHARLES TEMPLETON SALES PRODUCER Ot 305.1 TOBACCO USE DISORDER 08/06/2016 CHARLES TEMPLETON SALES PRODUCER Ot 327.23 OBSTRUCTIVE SLEEP APNEA (ADULT) (PEDIATR 08/06/2016 CHARLES TEMPLETON SALES PRODUCER Ot 416.8 CHR PULMON HEART DIS NEC 08/06/2016 CHARLES TEMPLETON SALES PRODUCER Ot 493.90 ASTHMA, UNSPECIFIED 08/06/2016 CHARLES TEMPLETON SALES PRODUCER Ot 786.05 SHORTNESS OF BREATH 08/06/2016 CHARLES TEMPLETON SALES PRODUCER Ot 786.09 RESPIRATORY ABNORM NEC 08/06/2016 TIPPING DO, ARNAV C Ot 244.9 HYPOTHYROIDISM NOS 08/06/2016 TIPPING DO, ARNAV C Ot 250.00 DIAB CALIN WO COMPL, TYPE II OR UNSPEC TY 08/06/2016 TIPPING DO, ARNAV C Ot 285.9 ANEMIA NOS 08/06/2016 TIPPING DO, ARNAV C Ot 403.90 HYPTNSV CHR KID DIS, UNSPEC, W CHR KD ST 08/06/2016 TIPPING DO, ARNAV C Ot 585.9 CHRONIC KIDNEY DISEASE, UNSPECIFIED 08/06/2016 TIPPING DO, ARNAV C Ot 799.02 HYPOXEMIA 08/06/2016 LANDON LOVE MD Ot 250.00 DIAB CALIN WO COMPL, TYPE II OR UNSPEC TY 08/06/2016 LANDON LOVE MD Ot 428.32 CHRONIC DIASTOLIC HRT FAILURE 08/06/2016 LANDON LOVE MD Ot 496 CHR AIRWAY OBSTRUCT NEC 08/06/2016 Ot E11.9 TYPE 2 DIABETES MELLITUS WITHOUT COMPLIC 08/06/2016 Ot E78.5 HYPERLIPIDEMIA, UNSPECIFIED 08/06/2016 Ot I12.9 HYPERTENSIVE CHRONIC KIDNEY DISEASE W ST 08/06/2016 Ot N18.9 CHRONIC KIDNEY DISEASE, UNSPECIFIED 08/06/2016 Ot R09.02 HYPOXEMIA 08/06/2016 PASCUAL JORGENSEN DO Ot E66.01 MORBID (SEVERE) OBESITY DUE TO EXCESS CA 08/06/2016 PASCUAL JORGENSEN DO Ot G47.33 OBSTRUCTIVE SLEEP APNEA (ADULT) (PEDIATR 08/06/2016 PASCUAL JORGENSEN DO Ot J45.909 UNSPECIFIED ASTHMA, UNCOMPLICATED 08/06/2016 PASCUAL JORGENSEN DO Ot R59.0 LOCALIZED ENLARGED LYMPH NODES 08/06/2016 BEV BAIN L CLERK TELEGRAPH SERVICE Ot E07.9 DISORDER OF THYROID, UNSPECIFIED 08/06/2016 ODELL BEV L CLERK TELEGRAPH SERVICE Ot 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 TRICUSPID INSUFFICIENCY 08/06/2016 DARIUSMA BEV L CLERK TELEGRAPH SERVICE Ot R00.2 PALPITATIONS 08/06/2016 BAIMA, BEV L CLERK TELEGRAPH SERVICE Ot R07.9 CHEST PAIN, UNSPECIFIED 08/06/2016 Ot E07.9 DISORDER OF THYROID, UNSPECIFIED 08/06/2016 Ot 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 TRICUSPID INSUFFICIENCY 08/06/2016 Ot R00.2 PALPITATIONS 08/06/2016 Ot R07.9 CHEST PAIN, UNSPECIFIED 08/06/2016 BAIMA, BEV L CLERK TELEGRAPH SERVICE Ot E07.9 DISORDER OF THYROID, UNSPECIFIED 08/06/2016 BAIMA BEV L CLERK TELEGRAPH SERVICE Ot 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 TRICUSPID INSUFFICIENCY 08/06/2016 DARIUSMA BEV L CLERK TELEGRAPH SERVICE Ot R00.2 PALPITATIONS 08/06/2016 ODELL BEV L CLERK TELEGRAPH SERVICE Ot R07.9 CHEST PAIN, UNSPECIFIED 08/06/2016 ARNAV ALBERTO DO Ot D50.9 IRON DEFICIENCY ANEMIA, UNSPECIFIED 08/06/2016 ARNAV ALBERTO DO Ot E11.9 TYPE 2 DIABETES MELLITUS WITHOUT COMPLIC 08/06/2016 ARNAV ALBERTO DO Ot E11.9 TYPE 2 DIABETES MELLITUS WITHOUT COMPLIC 08/06/2016 TIPPING DO, ARNAV C Ot E78.2 MIXED HYPERLIPIDEMIA 08/06/2016 TIPPING DO, ARNAV C Ot E11.9 TYPE 2 DIABETES MELLITUS WITHOUT COMPLIC 08/06/2016 TIPPING DO, ARNAV C Ot E78.2 MIXED HYPERLIPIDEMIA 08/06/2016 TIPPING DO, ARNAV C Ot E11.9 TYPE 2 DIABETES MELLITUS WITHOUT COMPLIC 08/06/2016 TIPPING DO, ARNAV C Ot E78.2 MIXED HYPERLIPIDEMIA 08/06/2016 TIPPING DO, ARNAV C Ot N18.3 CHRONIC KIDNEY DISEASE, STAGE 3 (MODERAT 08/20/2016 NOLVIA KILLIAN MD Ot A41.9 SEPSIS, UNSPECIFIED ORGANISM 08/20/2016 NOLVIA KILLIAN MD Ot E03.9 HYPOTHYROIDISM, UNSPECIFIED 08/20/2016 NOLVIA KILLIAN MD Ot E11.9 TYPE 2 DIABETES MELLITUS WITHOUT COMPLIC 08/20/2016 NOLVIA KILLIAN MD Ot E66.9 OBESITY, UNSPECIFIED 08/20/2016 NOLVIA KILLIAN MD Ot E78.00 PURE HYPERCHOLESTEROLEMIA, UNSPECIFIED 08/20/2016 NOLVIA KILLIAN MD Ot F32.9 MAJOR DEPRESSIVE DISORDER, SINGLE EPISOD 08/20/2016 NOLVIA KILLIAN MD Ot G25.81 RESTLESS LEGS SYNDROME 08/20/2016 NOLVIA KILLIAN MD Ot I50.9 HEART FAILURE, UNSPECIFIED 08/20/2016 NOLVIA KILLIAN MD, Ot J18.9 PNEUMONIA, UNSPECIFIED ORGANISM 08/20/2016 NOLVIA KILLIAN MD Ot 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, UNS 08/20/2016 NOLVIA KILLIAN MD, Ot J44.0 CHRONIC OBSTRUCTIVE PULMON DISEASE W ACU 08/20/2016 NOLVIA KILLIAN MD, Ot J44.1 CHRONIC OBSTRUCTIVE PULMONARY DISEASE W 08/20/2016 NOLVIA KILLIAN MD Ot M79.7 FIBROMYALGIA 08/20/2016 NOLVIA KILLIAN MD Ot R11.2 NAUSEA WITH VOMITING, UNSPECIFIED 08/20/2016 NOLVIA KILLIAN MD Ot R13.10 DYSPHAGIA, UNSPECIFIED 08/20/2016 NOLVIA KILLIAN MD Ot R19.7 DIARRHEA, UNSPECIFIED 08/20/2016 NOLVIA KILLIAN MD Ot Z68.43 BODY MASS INDEX (BMI) 50-59.9 , ADULT 08/20/2016 CONSTANTIN DAVIS, NOLVIA Mays Ot Z87.891 PERSONAL HISTORY OF NICOTINE DEPENDENCE 08/27/2016 TIPPING DO, ARNAV C Ot E11.9 TYPE 2 DIABETES MELLITUS WITHOUT COMPLIC 08/27/2016 TIPPING DO, ARNAV C Ot E78.2 MIXED HYPERLIPIDEMIA 08/27/2016 TIPPING DO, ARNAV C Ot N18.3 CHRONIC KIDNEY DISEASE, STAGE 3 (MODERAT 09/04/2016 TIPPING DO, ARNAV C Ot E11.9 TYPE 2 DIABETES MELLITUS WITHOUT COMPLIC 09/04/2016 TIPPING DO, ARNAV C Ot E78.2 MIXED HYPERLIPIDEMIA 09/04/2016 TIPPING DO, ARNAV C Ot N18.3 CHRONIC KIDNEY DISEASE, STAGE 3 (MODERAT 11/25/2016 Ot 722.52 LUMB/ LUMBOSAC DISC DEGEN 11/25/2016 Ot 722.10 LUMBAR DISC DISPLACEMENT 11/25/2016 Ot 722.52 LUMB/ LUMBOSAC DISC DEGEN 11/25/2016 Ot V45.4 ARTHRODESIS STATUS 11/25/2016 Ot 799.02 HYPOXEMIA 11/25/2016 Ot 620.2 OVARIAN CYST NEC/NOS 11/25/2016 Ot 789.00 ABDOMINAL PAIN, UNSPECIFIED SITE 11/25/2016 Ot 790.6 ABN BLOOD CHEMISTRY NEC 11/25/2016 Ot 785.1 PALPITATIONS 11/25/2016 Ot 078.89 VIRAL DISEASES NEC 11/25/2016 Ot 790.6 ABN BLOOD CHEMISTRY NEC 11/25/2016 Ot 496 CHR AIRWAY OBSTRUCT NEC 11/25/2016 Ot 780.4 DIZZINESS AND GIDDINESS 11/25/2016 Ot 780.79 OTH MALAISE FATIGUE 11/25/2016 Ot 782.3 EDEMA 11/25/2016 Ot 785.1 PALPITATIONS 11/25/2016 Ot 786.05 SHORTNESS OF BREATH 11/25/2016 Ot 786.50 CHEST PAIN NOS 11/25/2016 Ot V58.66 LONG-TERM ( CURRENT) USE OF ASPIRIN 11/25/2016 Ot V58.69 OTH MED,LT, CURRENT USE 11/25/2016 Ot V72.63 PRE- PROCEDURAL LABORATORY EXAMINATION 11/25/2016 Ot V72.81 EXAM-PRE- OPERATIVE CARDIOVASCULAR 11/25/2016 Ot 244.9 HYPOTHYROIDISM NOS 11/25/2016 Ot 782.3 EDEMA 11/25/2016 Ot 721.3 LUMBOSACRAL SPONDYLOSIS 11/25/2016 Ot 722.52 LUMB/ LUMBOSAC DISC DEGEN 11/25/2016 Ot 782.3 EDEMA 11/25/2016 Ot V45.4 ARTHRODESIS STATUS 11/25/2016 Ot 729.81 SWELLING OF LIMB 11/25/2016 Ot V58.69 OTH MED,LT, CURRENT USE 11/25/2016 Ot 327.23 OBSTRUCTIVE SLEEP APNEA (ADULT) (PEDIATR 11/25/2016 Ot 496 CHR AIRWAY OBSTRUCT NEC 11/25/2016 Ot 571.8 CHRONIC LIVER DIS NEC 11/25/2016 Ot 786.05 SHORTNESS OF BREATH 11/25/2016 Ot V58.69 OTH MED,LT, CURRENT USE 11/25/2016 Ot 790.5 ABN SERUM ENZY LEVEL NEC 11/25/2016 Ot 787.20 DYSPHAGIA, UNSPECIFIED 11/25/2016 JUDY DAVIS, SARAH Law Ot 276.1 HYPOSMOLALITY 11/25/2016 ZENA UMANZOR CLERK TELEGRAPH SERVICE Ot 625.9 FEM GENITAL SYMPTOMS NOS 11/25/2016 JEANETH LYLES, ALI FACP CCDS Ot V58.69 OTH MED,LT,CURRENT USE 11/25/2016 SARAH KIM MD Ot 729.5 PAIN IN LIMB 11/25/2016 SARAH KIM MD Ot 729.81 SWELLING OF LIMB 11/25/2016 BEV BAIN CLERK TELEGRAPH SERVICE Ot 276.8 HYPOPOTASSEMIA 11/25/2016 BEV BAIN CLERK TELEGRAPH SERVICE Ot 276.8 HYPOPOTASSEMIA 11/25/2016 BEV BAIN CLERK TELEGRAPH SERVICE Ot V58.69 OTH MED,LT,CURRENT USE 11/25/2016 YAMILETH LAURENT MD Ot 429.3 CARDIOMEGALY 11/25/2016 YAMILETH LAURENT MD Ot 496 CHR AIRWAY OBSTRUCT NEC 11/25/2016 JEANETH DAVIS FACC, ALI FACP CCDS Ot 416.8 CHR PULMON HEART DIS NEC 11/25/2016 JEANETH LYLESC, ALI FACP CCDS Ot 427.89 CARDIAC DYSRHYTHMIAS NEC 11/25/2016 JEANETH DAVIS FACC, ALI FACP CCDS Ot 496 CHR AIRWAY OBSTRUCT NEC 11/25/2016 JEANETH DAVIS [facility], ALI FACP CCDS Ot 785.6 ENLARGEMENT LYMPH NODES 11/25/2016 JEANETH DAVIS [facility], ALI FACP CCDS Ot 786.05 SHORTNESS OF BREATH 11/25/2016 JEANETH DAVIS [facility], ALI FACP CCDS Ot 786.50 CHEST PAIN NOS 11/25/2016 BAILUI, BEV L CLERK TELEGRAPH SERVICE Ot 278.01 MORBID OBESITY 11/25/2016 BAIMA, BEV L CLERK TELEGRAPH SERVICE Ot 278.03 OBESITY HYPOVENTILATION SYNDROME 11/25/2016 BAIMA, BEV L CLERK TELEGRAPH SERVICE Ot 305.1 TOBACCO USE DISORDER 11/25/2016 BAIMA, BEV L CLERK TELEGRAPH SERVICE Ot 397.0 TRICUSPID VALVE DISEASE 11/25/2016 BAIMA, BEV L CLERK TELEGRAPH SERVICE Ot 416.8 CHR PULMON HEART DIS NEC 11/25/2016 BAIMA, BEV L CLERK TELEGRAPH SERVICE Ot 424.0 MITRAL VALVE DISORDER 11/25/2016 BAIMA, BEV L CLERK TELEGRAPH SERVICE Ot 429.9 HEART DISEASE NOS 11/25/2016 BAIMA, BEV L CLERK TELEGRAPH SERVICE Ot 496 CHR AIRWAY OBSTRUCT NEC 11/25/2016 BAIMA, BEV L CLERK TELEGRAPH SERVICE Ot 786.09 RESPIRATORY ABNORM NEC 11/25/2016 BAIMA, BEV L CLERK TELEGRAPH SERVICE Ot 276.8 HYPOPOTASSEMIA 11/25/2016 BAIMA, BEV L CLERK TELEGRAPH SERVICE Ot 276.8 HYPOPOTASSEMIA 11/25/2016 SASHA DAVIS, XIAO A Ot 519.19 OTHER DISEASES OF TRACHEA AND BRONCHUS 11/25/2016 SASHA DAVIS, XIAO A Ot 786.6 CHEST SWELLING/MASS/LUMP 11/25/2016 ZENA UMANZOR CLERK TELEGRAPH SERVICE Ot 724.4 LUMBOSACRAL NEURITIS NOS 11/25/2016 ZENA UMANZOR CLERK TELEGRAPH SERVICE Ot 285.9 ANEMIA NOS 11/25/2016 Ot 518.89 OTHER DISEASES OF LUNG, NEC 11/25/2016 Ot 793.11 SOLITARY PULMONARY NODULE 11/25/2016 Ot 585.3 CHRONIC KIDNEY DISEASE, STAGE III (MODER 11/25/2016 LANDON LOVE MD A Ot 285.9 ANEMIA NOS 11/25/2016 LANDON LOVE MD A Ot 403.90 HYPTNSV CHR KID DIS, UNSPEC, W CHR KD ST 11/25/2016 LANDON LOVE MD Ot 585.3 CHRONIC KIDNEY DISEASE, STAGE III (MODER 11/25/2016 CHARLES TEMPLETON SALES PRODUCER Ot 135 SARCOIDOSIS 11/25/2016 CHARLES TEMPLETON SALES PRODUCER Ot 305.1 TOBACCO USE DISORDER 11/25/2016 CHARLES TEMPLETON SALES PRODUCER Ot 327.23 OBSTRUCTIVE SLEEP APNEA (ADULT) (PEDIATR 11/25/2016 CHARLES TEMPLETON SALES PRODUCER Ot 416.8 CHR PULMON HEART DIS NEC 11/25/2016 CHARLES TEMPLETON SALES PRODUCER Ot 493.90 ASTHMA, UNSPECIFIED 11/25/2016 CHARLES TEMPLETON SALES PRODUCER Ot 786.05 SHORTNESS OF BREATH 11/25/2016 CHARLES TEMPLETON SALES PRODUCER Ot 786.09 RESPIRATORY ABNORM NEC 11/25/2016 TIPPING DOARNAV C Ot 244.9 HYPOTHYROIDISM NOS 11/25/2016 VLADPING DO, ARNAV C Ot 250.00 DIAB CALIN WO COMPL, TYPE II OR UNSPEC TY 11/25/2016 TIPPING LINA CASEIG C Ot 285.9 ANEMIA NOS 11/25/2016 ARNAV ALBERTO DO C Ot 403.90 HYPTNSV CHR KID DIS, UNSPEC, W CHR KD ST 11/25/2016 ARNAV ALBERTO DO C Ot 585.9 CHRONIC KIDNEY DISEASE, UNSPECIFIED 11/25/2016 ARNAV ALBERTO DO C Ot 799.02 HYPOXEMIA 11/25/2016 LANDON LOVE MD Ot 250.00 DIAB CALIN WO COMPL, TYPE II OR UNSPEC TY 11/25/2016 LANDON LOVE MD Ot 428.32 CHRONIC DIASTOLIC HRT FAILURE 11/25/2016 LANDON LOVE MD Ot 496 CHR AIRWAY OBSTRUCT NEC 11/25/2016 Ot E11.9 TYPE 2 DIABETES MELLITUS WITHOUT COMPLIC 11/25/2016 Ot E78.5 HYPERLIPIDEMIA, UNSPECIFIED 11/25/2016 Ot I12.9 HYPERTENSIVE CHRONIC KIDNEY DISEASE W ST 11/25/2016 Ot N18.9 CHRONIC KIDNEY DISEASE, UNSPECIFIED 11/25/2016 Ot R09.02 HYPOXEMIA 11/25/2016 PASCUAL JORGENSEN DO Ot E66.01 MORBID (SEVERE) OBESITY DUE TO EXCESS CA 11/25/2016 PASCUAL JORGENSEN DO Ot G47.33 OBSTRUCTIVE SLEEP APNEA (ADULT) (PEDIATR 11/25/2016 PASCUAL JORGENSEN DO Ot J45.909 UNSPECIFIED ASTHMA, UNCOMPLICATED 11/25/2016 JOSLYNPASCUAL MUELLER DO Ot R59.0 LOCALIZED ENLARGED LYMPH NODES 11/25/2016 BAIBEV POE CLERK TELEGRAPH SERVICE Ot E07.9 DISORDER OF THYROID, UNSPECIFIED 11/25/2016 BAIBEV POE CLERK TELEGRAPH SERVICE Ot 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 TRICUSPID INSUFFICIENCY 11/25/2016 BEV BAIN CLERK TELEGRAPH SERVICE Ot R00.2 PALPITATIONS 11/25/2016 BAIMABEV CLERK TELEGRAPH SERVICE Ot R07.9 CHEST PAIN, UNSPECIFIED 11/25/2016 Ot E07.9 DISORDER OF THYROID, UNSPECIFIED 11/25/2016 Ot 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 TRICUSPID INSUFFICIENCY 11/25/2016 Ot R00.2 PALPITATIONS 11/25/2016 Ot R07.9 CHEST PAIN, UNSPECIFIED 11/25/2016 BAIBEV POE CLERK TELEGRAPH SERVICE Ot E07.9 DISORDER OF THYROID, UNSPECIFIED 11/25/2016 BEV BAIN CLERK TELEGRAPH SERVICE Ot 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 TRICUSPID INSUFFICIENCY 11/25/2016 DARIUSBEV POE CLERK TELEGRAPH SERVICE Ot R00.2 PALPITATIONS 11/25/2016 BAIBEV POE CLERK TELEGRAPH SERVICE Ot R07.9 CHEST PAIN, UNSPECIFIED 11/25/2016 TIPPING DOLINAIG C Ot D50.9 IRON DEFICIENCY ANEMIA, UNSPECIFIED 11/25/2016 VLADPING ARNAV CASE C Ot E11.9 TYPE 2 DIABETES MELLITUS WITHOUT COMPLIC 11/25/2016 VLADPING LINA CASEIG C Ot E11.9 TYPE 2 DIABETES MELLITUS WITHOUT COMPLIC 11/25/2016 VLADPING LINA CASEIG C Ot E78.2 MIXED HYPERLIPIDEMIA 11/25/2016 VLADPING ARNAV CASE C Ot N18.3 CHRONIC KIDNEY DISEASE, STAGE 3 (MODERAT 11/25/2016 ERICA MCPHERSON APRN Ot E11.9 TYPE 2 DIABETES MELLITUS WITHOUT COMPLIC 11/25/2016 ERICA MCPHERSON APRN Ot J44.9 CHRONIC OBSTRUCTIVE PULMONARY DISEASE, U 11/25/2016 ERICA MCPHERSON APRN Ot S61.011A LACERATION W/O FB OF RIGHT THUMB W/O DAM 11/25/2016 ERICA MCPHERSON APRN Ot W45.8XXA OTH FOREIGN BODY OR OBJECT ENTERING THRO 11/25/2016 ERICA MCPHERSON APRN Ot Y99.8 OTHER EXTERNAL CAUSE STATUS 11/25/2016 ERICA MCPHERSON APRN Ot Z79.899 OTHER FDC (CURRENT) DRUG THERAPY 11/25/2016 ERICA MCPHERSON APRN Ot Z87.891 PERSONAL HISTORY OF NICOTINE DEPENDENCE 11/27/2016 ERICA MCPHERSON APRN Ot E11.9 TYPE 2 DIABETES MELLITUS WITHOUT COMPLIC 11/27/2016 ERICA MCPHERSON APRN Ot J44.9 CHRONIC OBSTRUCTIVE PULMONARY DISEASE, U 11/27/2016 ERICA MCPHERSON APRN Ot S61.011A LACERATION W/O FB OF RIGHT THUMB W/O DAM 11/27/2016 ERICA MCPHERSON APRN Ot W45.8XXA OTH FOREIGN BODY OR OBJECT ENTERING THRO 11/27/2016 ERICA MCPHERSON APRN Ot Y99.8 OTHER EXTERNAL CAUSE STATUS 11/27/2016 ERICA MCPHERSON APRN Ot Z79.899 OTHER FDC (CURRENT) DRUG THERAPY 11/27/2016 ERICA MCPHERSON APRN Ot Z87.891 PERSONAL HISTORY OF NICOTINE DEPENDENCE 12/01/2016 ERICA MCPHERSON APRN Ot E11.9 TYPE 2 DIABETES MELLITUS WITHOUT COMPLIC 12/01/2016 ERICA MCPHERSON APRN Ot J44.9 CHRONIC OBSTRUCTIVE PULMONARY DISEASE, U 12/01/2016 ERICA MCPHERSON APRN Ot S61.011A LACERATION W/O FB OF RIGHT THUMB W/O DAM 12/01/2016 ERICA MCPHERSON APRN Ot W45.8XXA OTH FOREIGN BODY OR OBJECT ENTERING THRO 12/01/2016 ERICA MCPHERSON APRN Ot Y99.8 OTHER EXTERNAL CAUSE STATUS 12/01/2016 ERICA MCPHERSON APRN Ot Z79.899 OTHER PRINCIPAL PROGRAMMER (CURRENT) DRUG THERAPY 12/01/2016 ERICA MCPHERSON APRN Ot Z87.891 PERSONAL HISTORY OF NICOTINE DEPENDENCE 12/05/2016 TIPPING DO, ARNAV C Ot D50.9 IRON DEFICIENCY ANEMIA, UNSPECIFIED 12/05/2016 TIPPING DO, ARNAV C Ot E78.5 HYPERLIPIDEMIA, UNSPECIFIED 12/05/2016 TIPPING DO, ARNAV C Ot D50.9 IRON DEFICIENCY ANEMIA, UNSPECIFIED 12/05/2016 TIPPING DO, ARNAV C Ot E78.5 HYPERLIPIDEMIA, UNSPECIFIED 12/05/2016 NAKIA DAVIS, DILCIA Shrestha Ot S61.011D LACERATION W/O FB OF RIGHT THUMB W/O DAM 12/06/2016 NAKIA DAVIS, DILCIA Shrestha Ot S61.011D LACERATION W/O FB OF RIGHT THUMB W/O DAM 12/13/2016 ERICA MCPHERSON APRN Ot E66.9 OBESITY, UNSPECIFIED 12/13/2016 ERICA MCPHERSON SALES PRODUCER Ot F17.210 NICOTINE DEPENDENCE, CIGARETTES, UNCOMPL 12/13/2016 ERICA MCPHERSON SALES PRODUCER Ot G89.29 OTHER CHRONIC PAIN 12/13/2016 ERICA MCPHERSON SALES PRODUCER Ot J44.9 CHRONIC OBSTRUCTIVE PULMONARY DISEASE, U 12/13/2016 ERICA MCPHERSON SALES PRODUCER Ot L03.116 CELLULITIS OF LEFT LOWER LIMB 12/13/2016 ERICA MCPHERSON APRN Ot M54.5 LOW BACK PAIN 12/13/2016 ERICA MCPHERSON SALES PRODUCER Ot Z79.899 OTHER PRINCIPAL PROGRAMMER (CURRENT) DRUG THERAPY 12/19/2016 ERICA MCPHERSON APRN Ot E66.9 OBESITY, UNSPECIFIED 12/19/2016 ERICA MCPHERSON APRN Ot F17.210 NICOTINE DEPENDENCE, CIGARETTES, UNCOMPL 12/19/2016 ERICA MCPHERSON SALES PRODUCER Ot G89.29 OTHER CHRONIC PAIN 12/19/2016 ERICA MCPHERSON APRN Ot J44.9 CHRONIC OBSTRUCTIVE PULMONARY DISEASE, U 12/19/2016 ERICA MCPHERSON SALES PRODUCER Ot L03.116 CELLULITIS OF LEFT LOWER LIMB 12/19/2016 ERICA MCPHERSON APRN Ot M54.5 LOW BACK PAIN 12/19/2016 ERICA MCPHERSON SALES PRODUCER Ot Z79.899 OTHER PRINCIPAL PROGRAMMER (CURRENT) DRUG THERAPY 12/25/2016 TIPPING DO ARNAV C Ot D50.9 IRON DEFICIENCY ANEMIA, UNSPECIFIED 12/25/2016 TIPPING DO ARNAV C Ot E78.5 HYPERLIPIDEMIA, UNSPECIFIED 12/27/2016 NAKIA DAVIS, DILCIA Shrestha Ot F17.210 NICOTINE DEPENDENCE, CIGARETTES, UNCOMPL 12/27/2016 NAKIA DAVIS, DILCIA Shrestha Ot J44.9 CHRONIC OBSTRUCTIVE PULMONARY DISEASE, U 12/27/2016 NAKIA DAVIS, DILCIA Shrestha Ot L71.0 PERIORAL DERMATITIS 12/27/2016 NAKIA DAVIS, DILCIA Shrestha Ot R21 RASH AND OTHER NONSPECIFIC SKIN ERUPTION 12/27/2016 NAKIA DAVIS, DILCIA Shrestha Ot F17.210 NICOTINE DEPENDENCE, CIGARETTES, UNCOMPL 12/27/2016 NAKIA DAVIS, DILCIA Shrestha Ot J44.9 CHRONIC OBSTRUCTIVE PULMONARY DISEASE, U 12/27/2016 NAKIA DAVIS, DILCIA Shrestha Ot L71.0 PERIORAL DERMATITIS 12/27/2016 DILCIA YEE MD Ot R21 RASH AND OTHER NONSPECIFIC SKIN ERUPTION 01/01/2017 TIPPING DO, ARNAV C Ot D50.9 IRON DEFICIENCY ANEMIA, UNSPECIFIED 01/01/2017 TIPPING DO, ARNAV C Ot E78.5 HYPERLIPIDEMIA, UNSPECIFIED 02/23/2017 ERICA MCPHERSON APRN Ot E66.9 OBESITY, UNSPECIFIED 02/23/2017 ERICA MCPHERSON APRN Ot F17.210 NICOTINE DEPENDENCE, CIGARETTES, UNCOMPL 02/23/2017 ERICA MCPHERSON SALES PRODUCER Ot G89.29 OTHER CHRONIC PAIN 02/23/2017 ERICA MCPHERSON APRN Ot J44.9 CHRONIC OBSTRUCTIVE PULMONARY DISEASE, U 02/23/2017 ERICA MCPHERSON SALES PRODUCER Ot L03.116 CELLULITIS OF LEFT LOWER LIMB 02/23/2017 ERICA MCPHERSON APRN Ot M54.5 LOW BACK PAIN 02/23/2017 ERICA MCPHERSON SALES PRODUCER Ot Z79.899 OTHER PRINCIPAL PROGRAMMER (CURRENT) DRUG THERAPY 03/13/2017 ERICA MCPHERSON SALES PRODUCER Ot E66.9 OBESITY, UNSPECIFIED 03/13/2017 ERICA MCPHERSON SALES PRODUCER Ot F17.210 NICOTINE DEPENDENCE, CIGARETTES, UNCOMPL 03/13/2017 ERICA MCPHERSON SALES PRODUCER Ot G89.29 OTHER CHRONIC PAIN 03/13/2017 ERICA MCPHERSON SALES PRODUCER Ot J44.9 CHRONIC OBSTRUCTIVE PULMONARY DISEASE, U 03/13/2017 ERICA MCPHERSON SALES PRODUCER Ot L03.116 CELLULITIS OF LEFT LOWER LIMB 03/13/2017 ERICA MCPHERSON SALES PRODUCER Ot M54.5 LOW BACK PAIN 03/13/2017 ERICA MCPHERSON SALES PRODUCER Ot Z79.899 OTHER [facility] (CURRENT) DRUG THERAPY 05/29/2017 MARY MARMOLEJO Ot E03.9 HYPOTHYROIDISM, UNSPECIFIED 05/29/2017 MARY MARMOLEJOP Ot E11.9 TYPE 2 DIABETES MELLITUS WITHOUT COMPLIC 05/29/2017 JALEEL, MARY CLERK TELEGRAPH SERVICE Ot E78.00 PURE HYPERCHOLESTEROLEMIA, UNSPECIFIED 05/29/2017 JALEEL, MARY CLERK TELEGRAPH SERVICE Ot F32.9 MAJOR DEPRESSIVE DISORDER, SINGLE EPISOD 05/29/2017 JALEEL, MARY CLERK TELEGRAPH SERVICE Ot G43.909 MIGRAINE, UNSP, NOT INTRACTABLE, WITHOUT 05/29/2017 JALEEL, MARY CLERK TELEGRAPH SERVICE Ot G47.30 SLEEP APNEA, UNSPECIFIED 05/29/2017 JALEEL, MARY CLERK TELEGRAPH SERVICE Ot I50.9 HEART FAILURE, UNSPECIFIED 05/29/2017 JALEEL, MARY CLERK TELEGRAPH SERVICE Ot J02.9 ACUTE PHARYNGITIS, UNSPECIFIED 05/29/2017 JALEEL, MARY CLERK TELEGRAPH SERVICE Ot J30.9 ALLERGIC RHINITIS, UNSPECIFIED 05/29/2017 JALEEL, MARY CLERK TELEGRAPH SERVICE Ot J44.9 CHRONIC OBSTRUCTIVE PULMONARY DISEASE, U 05/29/2017 JALEEL MARY CLERK TELEGRAPH SERVICE Ot K21.9 GASTRO-ESOPHAGEAL REFLUX DISEASE WITHOUT 05/29/2017 JALEEL, MARY CLERK TELEGRAPH SERVICE Ot Z82.49 FAMILY HX OF ISCHEM HEART DIS AND OTH DI 05/29/2017 JALEEL, MARY CLERK TELEGRAPH SERVICE Ot Z87.19 PERSONAL HISTORY OF OTHER DISEASES OF TH 05/29/2017 JALEEL, MARY CLERK TELEGRAPH SERVICE Ot Z87.440 PERSONAL HISTORY OF URINARY (TRACT) INFE 05/29/2017 JALEEL MARY CLERK TELEGRAPH SERVICE Ot Z87.448 PERSONAL HISTORY OF OTHER DISEASES OF UR 05/29/2017 JALEEL, MARY CLERK TELEGRAPH SERVICE Ot Z87.891 PERSONAL HISTORY OF NICOTINE DEPENDENCE 05/29/2017 JALEEL, MARY CLERK TELEGRAPH SERVICE Ot Z90.49 ACQUIRED ABSENCE OF OTHER SPECIFIED PART 05/29/2017 JALEEL, MARY CLERK TELEGRAPH SERVICE Ot Z90.89 ACQUIRED ABSENCE OF OTHER ORGANS 06/03/2017 TREMAYNE VALLES MD, Ot D86.1 SARCOIDOSIS OF LYMPH NODES 06/03/2017 TREMAYNE VALLES MD, Ot E03.9 HYPOTHYROIDISM, UNSPECIFIED 06/03/2017 TREMAYNE VALLES MD, Ot E11.9 TYPE 2 DIABETES MELLITUS WITHOUT COMPLIC 06/03/2017 TREMAYNE VALLES MD, Ot E66.2 MORBID (SEVERE) OBESITY WITH ALVEOLAR HY 06/03/2017 TREMAYNE VALLES MD, Ot E78.00 PURE HYPERCHOLESTEROLEMIA, UNSPECIFIED 06/03/2017 TREMAYNE VALLES MD, Ot E87.6 HYPOKALEMIA 06/03/2017 TREMAYNE VALLES MD, Ot F17.210 NICOTINE DEPENDENCE, CIGARETTES, UNCOMPL 06/03/2017 TREMAYNE VALLES MD, Ot F32.9 MAJOR DEPRESSIVE DISORDER, SINGLE EPISOD 06/03/2017 TREMAYNE VALLES MD, Ot F41.9 ANXIETY DISORDER, UNSPECIFIED 06/03/2017 TREMAYNE VALLES MD, Ot G25.81 RESTLESS LEGS SYNDROME 06/03/2017 TREMAYNE VALLES MD, Ot G43.909 MIGRAINE, UNSP, NOT INTRACTABLE, WITHOUT 06/03/2017 TREMAYNE VALLES MD, Ot I27.2 OTHER SECONDARY PULMONARY HYPERTENSION 06/03/2017 TREMAYNE VALLES MD Ot I50.33 ACUTE ON CHRONIC DIASTOLIC (CONGESTIVE) 06/03/2017 TREMAYNE VALLES MD, Ot I51.7 CARDIOMEGALY 06/03/2017 TREMAYNE VALLES MD, Ot 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, UNS 06/03/2017 TREMAYNE VALLES MD, Ot J44.1 CHRONIC OBSTRUCTIVE PULMONARY DISEASE W 06/03/2017 TREMAYNE VALLES MD, Ot K21.9 GASTRO-ESOPHAGEAL REFLUX DISEASE WITHOUT 06/03/2017 TREMAYNE VALLES MD, Ot K76.0 FATTY (CHANGE OF) LIVER, NOT ELSEWHERE C 06/03/2017 TREMAYNE VALLES MD, Ot M47.9 SPONDYLOSIS, UNSPECIFIED 06/03/2017 TREMAYNE VALLES MD Ot M79.7 FIBROMYALGIA 06/03/2017 TREMAYNE VALLES MD Ot R09.02 HYPOXEMIA 06/03/2017 TREMAYNE VALLES MD, Ot R13.10 DYSPHAGIA, UNSPECIFIED 06/03/2017 TREMAYNE VALLES MD, Ot Z79.84 FDC (CURRENT) USE OF ORAL HYPOGLYC 06/03/2017 TREMAYNE VALLES MD, Ot Z91.19 PATIENT'S NONCOMPLIANCE W [facility] MEDICAL TR 06/04/2017 MARY MARMOLEJO Ot E03.9 HYPOTHYROIDISM, UNSPECIFIED 06/04/2017 MARY MARMOLEJO Ot E11.9 TYPE 2 DIABETES MELLITUS WITHOUT COMPLIC 06/04/2017 MARY MARMOLEJO Ot E78.00 PURE HYPERCHOLESTEROLEMIA, UNSPECIFIED 06/04/2017 JALEEL, MARY CLERK TELEGRAPH SERVICE Ot F32.9 MAJOR DEPRESSIVE DISORDER, SINGLE EPISOD 06/04/2017 JALEEL, MARY CLERK TELEGRAPH SERVICE Ot G43.909 MIGRAINE, UNSP, NOT INTRACTABLE, WITHOUT 06/04/2017 JALEEL, MARY CLERK TELEGRAPH SERVICE Ot G47.30 SLEEP APNEA, UNSPECIFIED 06/04/2017 JALEEL, MARY CLERK TELEGRAPH SERVICE Ot I50.9 HEART FAILURE, UNSPECIFIED 06/04/2017 JALEEL MARY CLERK TELEGRAPH SERVICE Ot J02.9 ACUTE PHARYNGITIS, UNSPECIFIED 06/04/2017 JALEEL, MARY CLERK TELEGRAPH SERVICE Ot J30.9 ALLERGIC RHINITIS, UNSPECIFIED 06/04/2017 JALEEL, MARY CLERK TELEGRAPH SERVICE Ot J44.9 CHRONIC OBSTRUCTIVE PULMONARY DISEASE, U 06/04/2017 JALEEL, MARY CLERK TELEGRAPH SERVICE Ot K21.9 GASTRO-ESOPHAGEAL REFLUX DISEASE WITHOUT 06/04/2017 JALEEL, MARY CLERK TELEGRAPH SERVICE Ot Z82.49 FAMILY HX OF ISCHEM HEART DIS AND OTH DI 06/04/2017 JALEEL MARY CLERK TELEGRAPH SERVICE Ot Z87.19 PERSONAL HISTORY OF OTHER DISEASES OF TH 06/04/2017 JALEEL MARY CLERK TELEGRAPH SERVICE Ot Z87.440 PERSONAL HISTORY OF URINARY (TRACT) INFE 06/04/2017 JALEEL, MARY CLERK TELEGRAPH SERVICE Ot Z87.448 PERSONAL HISTORY OF OTHER DISEASES OF UR 06/04/2017 JALEEL MARY CLERK TELEGRAPH SERVICE Ot Z87.891 PERSONAL HISTORY OF NICOTINE DEPENDENCE 06/04/2017 JALEEL, MARY CLERK TELEGRAPH SERVICE Ot Z90.49 ACQUIRED ABSENCE OF OTHER SPECIFIED PART 06/04/2017 JALEEL, MARY CLERK TELEGRAPH SERVICE Ot Z90.89 ACQUIRED ABSENCE OF OTHER ORGANS 08/09/2017 JALEEL MARY CLERK TELEGRAPH SERVICE Ot E03.9 HYPOTHYROIDISM, UNSPECIFIED 08/09/2017 JALEEL, MARY CLERK TELEGRAPH SERVICE Ot E11.9 TYPE 2 DIABETES MELLITUS WITHOUT COMPLIC 08/09/2017 JALEEL, MARY CLERK TELEGRAPH SERVICE Ot E78.00 PURE HYPERCHOLESTEROLEMIA, UNSPECIFIED 08/09/2017 JALEEL, MARY CLERK TELEGRAPH SERVICE Ot F32.9 MAJOR DEPRESSIVE DISORDER, SINGLE EPISOD 08/09/2017 JALEEL, MARY CLERK TELEGRAPH SERVICE Ot G43.909 MIGRAINE, UNSP, NOT INTRACTABLE, WITHOUT 08/09/2017 JALEEL, MARY CLERK TELEGRAPH SERVICE Ot G47.30 SLEEP APNEA, UNSPECIFIED 08/09/2017 JALEEL MARY CLERK TELEGRAPH SERVICE Ot I50.9 HEART FAILURE, UNSPECIFIED 08/09/2017 JALEEL, MARY CLERK TELEGRAPH SERVICE Ot J02.9 ACUTE PHARYNGITIS, UNSPECIFIED 08/09/2017 JALEEL, MARY CLERK TELEGRAPH SERVICE Ot J30.9 ALLERGIC RHINITIS, UNSPECIFIED 08/09/2017 JALEEL MARY CLERK TELEGRAPH SERVICE Ot J44.9 CHRONIC OBSTRUCTIVE PULMONARY DISEASE, U 08/09/2017 JALEEL, MARY CLERK TELEGRAPH SERVICE Ot K21.9 GASTRO-ESOPHAGEAL REFLUX DISEASE WITHOUT 08/09/2017 JALEEL, MARY CLERK TELEGRAPH SERVICE Ot Z82.49 FAMILY HX OF ISCHEM HEART DIS AND OTH DI 08/09/2017 JALEEL, MARY CLERK TELEGRAPH SERVICE Ot Z87.19 PERSONAL HISTORY OF OTHER DISEASES OF TH 08/09/2017 JALEEL, MARY CLERK TELEGRAPH SERVICE Ot Z87.440 PERSONAL HISTORY OF URINARY (TRACT) INFE 08/09/2017 JALEEL MARY CLERK TELEGRAPH SERVICE Ot Z87.448 PERSONAL HISTORY OF OTHER DISEASES OF UR 08/09/2017 JALEEL MARY CLERK TELEGRAPH SERVICE Ot Z87.891 PERSONAL HISTORY OF NICOTINE DEPENDENCE 08/09/2017 JALEEL, MARY CLERK TELEGRAPH SERVICE Ot Z90.49 ACQUIRED ABSENCE OF OTHER SPECIFIED PART 08/09/2017 JALEEL, MARY CLERK TELEGRAPH SERVICE Ot Z90.89 ACQUIRED ABSENCE OF OTHER ORGANS 09/26/2017 JALEEL, MARY CLERK TELEGRAPH SERVICE Ot E03.9 HYPOTHYROIDISM, UNSPECIFIED 09/26/2017 JALEEL, MARY CLERK TELEGRAPH SERVICE Ot E11.9 TYPE 2 DIABETES MELLITUS WITHOUT COMPLIC 09/26/2017 JALEEL MARY CLERK TELEGRAPH SERVICE Ot E78.00 PURE HYPERCHOLESTEROLEMIA, UNSPECIFIED 09/26/2017 JALEEL, MARY CLERK TELEGRAPH SERVICE Ot F32.9 MAJOR DEPRESSIVE DISORDER, SINGLE EPISOD 09/26/2017 JALEEL MARY CLERK TELEGRAPH SERVICE Ot G43.909 MIGRAINE, UNSP, NOT INTRACTABLE, WITHOUT 09/26/2017 JALEEL MARY CLERK TELEGRAPH SERVICE Ot G47.30 SLEEP APNEA, UNSPECIFIED 09/26/2017 JALEEL, MARY CLERK TELEGRAPH SERVICE Ot I50.9 HEART FAILURE, UNSPECIFIED 09/26/2017 JALEEL, MARY CLERK TELEGRAPH SERVICE Ot J02.9 ACUTE PHARYNGITIS, UNSPECIFIED 09/26/2017 JALEEL MARY CLERK TELEGRAPH SERVICE Ot J30.9 ALLERGIC RHINITIS, UNSPECIFIED 09/26/2017 JALEEL MARY CLERK TELEGRAPH SERVICE Ot J44.9 CHRONIC OBSTRUCTIVE PULMONARY DISEASE, U 09/26/2017 JALEEL, MARY CLERK TELEGRAPH SERVICE Ot K21.9 GASTRO-ESOPHAGEAL REFLUX DISEASE WITHOUT 09/26/2017 MARY MARMOLEJO CLERK TELEGRAPH SERVICE Ot Z82.49 FAMILY HX OF ISCHEM HEART DIS AND OTH DI 09/26/2017 MARY MARMOLEJOP Ot Z87.19 PERSONAL HISTORY OF OTHER DISEASES OF TH 09/26/2017 MARY MARMOLEJOP Ot Z87.440 PERSONAL HISTORY OF URINARY (TRACT) INFE 09/26/2017 MARY MARMOLEJOP Ot Z87.448 PERSONAL HISTORY OF OTHER DISEASES OF UR 09/26/2017 MARY MARMOLEJOP Ot Z87.891 PERSONAL HISTORY OF NICOTINE DEPENDENCE 09/26/2017 MARY MARMOLEJO CLERK TELEGRAPH SERVICE Ot Z90.49 ACQUIRED ABSENCE OF OTHER SPECIFIED PART 09/26/2017 MARY MARMOLEJO CLERK TELEGRAPH SERVICE Ot Z90.89 ACQUIRED ABSENCE OF OTHER ORGANS 01/21/2018 JEANETH DAVIS FACC, ALI FACP CCDS Ot D86.0 SARCOIDOSIS OF LUNG 01/21/2018 JEANETH DAVIS FACC, ALI FACP CCDS Ot E11.9 TYPE 2 DIABETES MELLITUS WITHOUT COMPLIC 01/21/2018 JEANETH DAVIS FACC, ALI FACP CCDS Ot E66.2 MORBID (SEVERE) OBESITY WITH ALVEOLAR HY 01/21/2018 JEANETH DAVIS FACC, ALI FACP CCDS Ot 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 01/21/2018 JEANETH DAVIS FACC, ALI FACP CCDS Ot R07.89 OTHER CHEST PAIN 01/21/2018 JEANETH DAVIS FACC, ALI FACP CCDS Ot R09.02 HYPOXEMIA 02/10/2018 JEANETH DAVIS FACC, ALI FACP CCDS Ot D86.0 SARCOIDOSIS OF LUNG 02/10/2018 JENAETH DAVIS FACC, ALI FACP CCDS Ot E11.9 TYPE 2 DIABETES MELLITUS WITHOUT COMPLIC 02/10/2018 JEANETH DAVIS FACC, ALI FACP CCDS Ot E66.2 MORBID (SEVERE) OBESITY WITH ALVEOLAR HY 02/10/2018 JEANETH LYLESC, ALI FACP CCDS Ot 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 02/10/2018 JEANETH DAVIS FACC, ALI FACP CCDS Ot R07.89 OTHER CHEST PAIN 02/10/2018 JEANETH DAVIS FACC, ALI FACP CCDS Ot R09.02 HYPOXEMIA 02/19/2018 JEANETH DAVIS FACC, ALI FACP CCDS Ot D86.0 SARCOIDOSIS OF LUNG 02/19/2018 JEANETH MD FACC, ALI FACP CCDS Ot E11.9 TYPE 2 DIABETES MELLITUS WITHOUT COMPLIC 02/19/2018 JEANETH DAVIS FACC, ALI FACP CCDS Ot E66.2 MORBID (SEVERE) OBESITY WITH ALVEOLAR HY 02/19/2018 JEANETH DAVIS FACC, ALI FACP CCDS Ot 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 02/19/2018 JEANETH DAVIS FACSarita, ALI FACP CCDS Ot R07.89 OTHER CHEST PAIN 02/19/2018 JEANETH DAVIS FACC, ALI FACP CCDS Ot R09.02 HYPOXEMIA 03/29/2018 KRISTEN JACKSON MD Ot E11.40 TYPE 2 DIABETES MELLITUS WITH DIABETIC N 03/29/2018 KRISTEN JACKSON MD Ot E66.01 MORBID (SEVERE) OBESITY DUE TO EXCESS CA 03/29/2018 KRISTEN JACKSON MD Ot E78.00 PURE HYPERCHOLESTEROLEMIA, UNSPECIFIED 03/29/2018 KRISTEN JACKSON MD Ot F17.210 NICOTINE DEPENDENCE, CIGARETTES, UNCOMPL 03/29/2018 KRISTEN JACKSON MD Ot F32.9 MAJOR DEPRESSIVE DISORDER, SINGLE EPISOD 03/29/2018 KRISTEN JACKSON MD Ot F41.9 ANXIETY DISORDER, UNSPECIFIED 03/29/2018 KRISTEN JACKSON MD Ot G43.909 MIGRAINE, UNSP, NOT INTRACTABLE, WITHOUT 03/29/2018 KRISTEN JACKSON MD Ot I27.0 PRIMARY PULMONARY HYPERTENSION 03/29/2018 KRISTEN JACKSON MD Ot I50.9 HEART FAILURE, UNSPECIFIED 03/29/2018 KRISTEN JACKSON MD Ot J44.9 CHRONIC OBSTRUCTIVE PULMONARY DISEASE, U 03/29/2018 KRISTEN JACKSON MD Ot K21.9 GASTRO-ESOPHAGEAL REFLUX DISEASE WITHOUT 03/29/2018 KRISTEN JACKSON MD Ot M19.90 UNSPECIFIED OSTEOARTHRITIS, UNSPECIFIED 03/29/2018 KRISTEN JACKSON MD Ot S62.111A DISP FX OF TRIQUETRUM BONE, RIGHT WRIST, 03/29/2018 KRISTEN JACKSON MD Ot S69.91XA UNSP INJURY OF RIGHT WRIST, HAND AND FIN 03/29/2018 KRISTEN JACKSON MD Ot W18.30XA FALL ON SAME LEVEL, UNSPECIFIED, INITIAL 03/29/2018 KRISTEN JACKSON MD Ot Y93.01 ACTIVITY, WALKING, MARCHING AND HIKING 03/29/2018 KRISTEN JACKSON MD Ot Z68.42 BODY MASS INDEX (BMI) 45.0-49.9, ADULT 03/29/2018 KRISTEN JACKSON MD Ot Z88.1 ALLERGY STATUS TO OTHER ANTIBIOTIC AGENT 03/29/2018 KRISTEN JACKSON MD Ot Z88.5 ALLERGY STATUS TO NARCOTIC AGENT STATUS 03/29/2018 KRISTEN JACKSON MD Ot Z90.49 ACQUIRED ABSENCE OF OTHER SPECIFIED PART 03/29/2018 KRISTEN JACKSON MD Ot Z90.89 ACQUIRED ABSENCE OF OTHER ORGANS 06/10/2018 SARAH KIM MD Ot 276.1 HYPOSMOLALITY 06/10/2018 ZENA UMANZOR CLERK TELEGRAPH SERVICE Ot 625.9 FEM GENITAL SYMPTOMS NOS 06/10/2018 JEANETH DAVIS FACC, SOPHIE FACP CCDS Ot V58.69 OTH MED,LT,CURRENT USE 06/10/2018 SARAH KIM MD Ot 729.5 PAIN IN LIMB 06/10/2018 SARAH KIM MD Ot 729.81 SWELLING OF LIMB 06/10/2018 BEV BAIN CLERK TELEGRAPH SERVICE Ot 276.8 HYPOPOTASSEMIA 06/10/2018 BEV BAIN CLERK TELEGRAPH SERVICE Ot 276.8 HYPOPOTASSEMIA 06/10/2018 BEV BAIN CLERK TELEGRAPH SERVICE Ot V58.69 OTH MED,LT,CURRENT USE 06/10/2018 YAMILETH LAURENT MD Ot 429.3 CARDIOMEGALY 06/10/2018 YAMILETH LAURENT MD Ot 496 CHR AIRWAY OBSTRUCT NEC 06/10/2018 JEANETH DAVIS FACC, ALI FACP CCDS Ot 416.8 CHR PULMON HEART DIS NEC 06/10/2018 JEANETH DAVIS FACC, ALI FACP CCDS Ot 427.89 CARDIAC DYSRHYTHMIAS NEC 06/10/2018 JEANETH DAVIS FACC, ALI FACP CCDS Ot 496 CHR AIRWAY OBSTRUCT NEC 06/10/2018 JEANETH DAVIS FACC, ALI FACP CCDS Ot 785.6 ENLARGEMENT LYMPH NODES 06/10/2018 JEANETH DAVIS FACC, ALI FACP CCDS Ot 786.05 SHORTNESS OF BREATH 06/10/2018 JEANETH DAVIS FACC, ALI FACP CCDS Ot 786.50 CHEST PAIN NOS 06/10/2018 BAIMA, BEV L CLERK TELEGRAPH SERVICE Ot 278.01 MORBID OBESITY 06/10/2018 BAIMA, BEV L CLERK TELEGRAPH SERVICE Ot 278.03 OBESITY HYPOVENTILATION SYNDROME 06/10/2018 BAIMA, BEV L CLERK TELEGRAPH SERVICE Ot 305.1 TOBACCO USE DISORDER 06/10/2018 BAIMA, BEV L CLERK TELEGRAPH SERVICE Ot 397.0 TRICUSPID VALVE DISEASE 06/10/2018 BAIMA, BEV L CLERK TELEGRAPH SERVICE Ot 416.8 CHR PULMON HEART DIS NEC 06/10/2018 BAIMA, BEV L CLERK TELEGRAPH SERVICE Ot 424.0 MITRAL VALVE DISORDER 06/10/2018 BAIMA, BEV L CLERK TELEGRAPH SERVICE Ot 429.9 HEART DISEASE NOS 06/10/2018 BAIMA, BEV L CLERK TELEGRAPH SERVICE Ot 496 CHR AIRWAY OBSTRUCT NEC 06/10/2018 BAIMA, BEV L CLERK TELEGRAPH SERVICE Ot 786.09 RESPIRATORY ABNORM NEC 06/10/2018 BAIMA, BEV L CLERK TELEGRAPH SERVICE Ot 276.8 HYPOPOTASSEMIA 06/10/2018 BAIMA, BEV L CLERK TELEGRAPH SERVICE Ot 276.8 HYPOPOTASSEMIA 06/10/2018 SASHA DAVIS, XIAO A Ot 519.19 OTHER DISEASES OF TRACHEA AND BRONCHUS 06/10/2018 SASHA DAVIS, XIAO A Ot 786.6 CHEST SWELLING/MASS/LUMP 06/10/2018 ZENA UMANZOR CLERK TELEGRAPH SERVICE Ot 724.4 LUMBOSACRAL NEURITIS NOS 06/10/2018 ZENA UMANZOR CLERK TELEGRAPH SERVICE Ot 285.9 ANEMIA NOS 06/10/2018 Ot 518.89 OTHER DISEASES OF LUNG, NEC 06/10/2018 Ot 793.11 SOLITARY PULMONARY NODULE 06/10/2018 Ot 585.3 CHRONIC KIDNEY DISEASE, STAGE III (MODER 06/10/2018 IVAN DAVIS, TALAL A Ot 285.9 ANEMIA NOS 06/10/2018 IVAN DAVIS, CRISTIAL A Ot 403.90 HYPTNSV CHR KID DIS, UNSPEC, W CHR KD ST 06/10/2018 CRISTI LOVE MDAL A Ot 585.3 CHRONIC KIDNEY DISEASE, STAGE III (MODER 06/10/2018 CHARLES TEMPLETON APRN Ot 135 SARCOIDOSIS 06/10/2018 CHARLES TEMPLETON SALES PRODUCER Ot 305.1 TOBACCO USE DISORDER 06/10/2018 CAHRLES TEMPLETON APRN Ot 327.23 OBSTRUCTIVE SLEEP APNEA (ADULT) (PEDIATR 06/10/2018 CHARLES TEMPLETON SALES PRODUCER Ot 416.8 CHR PULMON HEART DIS NEC 06/10/2018 CHARLES TEMPLETON SALES PRODUCER Ot 493.90 ASTHMA, UNSPECIFIED 06/10/2018 CHARLES TEMPLETON SALES PRODUCER Ot 786.05 SHORTNESS OF BREATH 06/10/2018 CHARLES TEMPLETON SALES PRODUCER Ot 786.09 RESPIRATORY ABNORM NEC 06/10/2018 TIPPING DO, ARNAV C Ot 244.9 HYPOTHYROIDISM NOS 06/10/2018 TIPPING DO, ARNAV C Ot 250.00 DIAB CALIN WO COMPL, TYPE II OR UNSPEC TY 06/10/2018 TIPPING DO, ARNAV C Ot 285.9 ANEMIA NOS 06/10/2018 TIPPING DO, ARNAV C Ot 403.90 HYPTNSV CHR KID DIS, UNSPEC, W CHR KD ST 06/10/2018 TIPPING DO, ARNAV C Ot 585.9 CHRONIC KIDNEY DISEASE, UNSPECIFIED 06/10/2018 TIPPING DO, ARNAV C Ot 799.02 HYPOXEMIA 06/10/2018 IVAN DAVIS, CRISTIAL A Ot 250.00 DIAB CALIN WO COMPL, TYPE II OR UNSPEC TY 06/10/2018 IVAN DAVIS, CRISTIAL A Ot 428.32 CHRONIC DIASTOLIC HRT FAILURE 06/10/2018 IVAN DAVIS, TALAL A Ot 496 CHR AIRWAY OBSTRUCT NEC 06/10/2018 Ot E11.9 TYPE 2 DIABETES MELLITUS WITHOUT COMPLIC 06/10/2018 Ot E78.5 HYPERLIPIDEMIA, UNSPECIFIED 06/10/2018 Ot I12.9 HYPERTENSIVE CHRONIC KIDNEY DISEASE W ST 06/10/2018 Ot N18.9 CHRONIC KIDNEY DISEASE, UNSPECIFIED 06/10/2018 Ot R09.02 HYPOXEMIA 06/10/2018 PASCUAL JORGENSEN DO Ot E66.01 MORBID (SEVERE) OBESITY DUE TO EXCESS CA 06/10/2018 PASCUAL JORGENSEN DO Ot G47.33 OBSTRUCTIVE SLEEP APNEA (ADULT) (PEDIATR 06/10/2018 PASCUAL JORGENSEN DO Ot J45.909 UNSPECIFIED ASTHMA, UNCOMPLICATED 06/10/2018 PASCUAL JORGENSEN DO Ot R59.0 LOCALIZED ENLARGED LYMPH NODES 06/10/2018 BEV BAIN CLERK TELEGRAPH SERVICE Ot E07.9 DISORDER OF THYROID, UNSPECIFIED 06/10/2018 BEV BAIN CLERK TELEGRAPH SERVICE Ot 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 TRICUSPID INSUFFICIENCY 06/10/2018 BAIMA, BEV L CLERK TELEGRAPH SERVICE Ot R00.2 PALPITATIONS 06/10/2018 BAIMA, BEV L CLERK TELEGRAPH SERVICE Ot R07.9 CHEST PAIN, UNSPECIFIED 06/10/2018 Ot E07.9 DISORDER OF THYROID, UNSPECIFIED 06/10/2018 Ot 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 TRICUSPID INSUFFICIENCY 06/10/2018 Ot R00.2 PALPITATIONS 06/10/2018 Ot R07.9 CHEST PAIN, UNSPECIFIED 06/10/2018 BAIMA, BEV L CLERK TELEGRAPH SERVICE Ot E07.9 DISORDER OF THYROID, UNSPECIFIED 06/10/2018 BAIMA, BEV L CLERK TELEGRAPH SERVICE Ot 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 TRICUSPID INSUFFICIENCY 06/10/2018 BAIMA, BEV L CLERK TELEGRAPH SERVICE Ot R00.2 PALPITATIONS 06/10/2018 BAIMA, BEV L CLERK TELEGRAPH SERVICE Ot R07.9 CHEST PAIN, UNSPECIFIED 06/10/2018 TIPPING DO, ARNAV C Ot D50.9 IRON DEFICIENCY ANEMIA, UNSPECIFIED 06/10/2018 TIPPING DO, ARNAV C Ot E11.9 TYPE 2 DIABETES MELLITUS WITHOUT COMPLIC 06/10/2018 TIPPING DO, ARNAV C Ot E11.9 TYPE 2 DIABETES MELLITUS WITHOUT COMPLIC 06/10/2018 TIPPING DO, ARNAV C Ot E78.2 MIXED HYPERLIPIDEMIA 06/10/2018 TIPPING DO, ARNAV C Ot N18.3 CHRONIC KIDNEY DISEASE, STAGE 3 (MODERAT 06/10/2018 TIPPING DO, ARNAV C Ot D50.9 IRON DEFICIENCY ANEMIA, UNSPECIFIED 06/10/2018 TIPPING DO, ARNAV C Ot E78.5 HYPERLIPIDEMIA, UNSPECIFIED 06/10/2018 JEANETH DAVIS FACC, ALI FACP CCDS Ot D86.0 SARCOIDOSIS OF LUNG 06/10/2018 JEANETH DAVIS FACC, ALI FACP CCDS Ot E11.9 TYPE 2 DIABETES MELLITUS WITHOUT COMPLIC 06/10/2018 JEANETH DAVIS FACC, ALI FACP CCDS Ot E66.2 MORBID (SEVERE) OBESITY WITH ALVEOLAR HY 06/10/2018 JEANETH DAVIS FACC, ALI FACP CCDS Ot 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 06/10/2018 JEANETH DAVIS FACC, ALI FACP CCDS Ot R07.89 OTHER CHEST PAIN 06/10/2018 JEANETH DAVIS FACC, ALI FACP CCDS Ot R09.02 HYPOXEMIA 06/16/2018 JUDY DAVIS, SARAH M Ot 276.1 HYPOSMOLALITY 06/16/2018 ZENA UMANZOR CLERK TELEGRAPH SERVICE Ot 625.9 FEM GENITAL SYMPTOMS NOS 06/16/2018 JEANETH DAVIS FACC, ALI FACP CCDS Ot V58.69 OTH MED,LT,CURRENT USE 06/16/2018 SARAH IKM MD Ot 729.5 PAIN IN LIMB 06/16/2018 SARAH KIM MD Ot 729.81 SWELLING OF LIMB 06/16/2018 BAIMA BEV L CLERK TELEGRAPH SERVICE Ot 276.8 HYPOPOTASSEMIA 06/16/2018 BAIMA, BEV L CLERK TELEGRAPH SERVICE Ot 276.8 HYPOPOTASSEMIA 06/16/2018 BAIMA BEV L CLERK TELEGRAPH SERVICE Ot V58.69 OTH MED,LT,CURRENT USE 06/16/2018 ANASTASIIA DAVIS, YAMILETH Cruz Ot 429.3 CARDIOMEGALY 06/16/2018 ANASTASIIA DAVIS, YAMILETH Cruz Ot 496 CHR AIRWAY OBSTRUCT NEC 06/16/2018 JEANETH DAVIS FACC, ALI FACP CCDS Ot 416.8 CHR PULMON HEART DIS NEC 06/16/2018 JEANETH DAVIS FACC, ALI FACP CCDS Ot 427.89 CARDIAC DYSRHYTHMIAS NEC 06/16/2018 JEANETH DAVIS FACSarita, ALI FACP CCDS Ot 496 CHR AIRWAY OBSTRUCT NEC 06/16/2018 JEANETH DAVIS FACSarita, ALI FACP CCDS Ot 785.6 ENLARGEMENT LYMPH NODES 06/16/2018 JEANETH DAVIS FACC, ALI FACP CCDS Ot 786.05 SHORTNESS OF BREATH 06/16/2018 JEANETH DAVIS FACC, ALI FACP CCDS Ot 786.50 CHEST PAIN NOS 06/16/2018 BAIMA, BEV L CLERK TELEGRAPH SERVICE Ot 278.01 MORBID OBESITY 06/16/2018 BAIMA, BEV L CLERK TELEGRAPH SERVICE Ot 278.03 OBESITY HYPOVENTILATION SYNDROME 06/16/2018 BAIMA, BEV L CLERK TELEGRAPH SERVICE Ot 305.1 TOBACCO USE DISORDER 06/16/2018 BAIMA, BEV L CLERK TELEGRAPH SERVICE Ot 397.0 TRICUSPID VALVE DISEASE 06/16/2018 BAIMA, BEV L CLERK TELEGRAPH SERVICE Ot 416.8 CHR PULMON HEART DIS NEC 06/16/2018 DARIUSMA, BEV L CLERK TELEGRAPH SERVICE Ot 424.0 MITRAL VALVE DISORDER 06/16/2018 BAIMA, BEV L CLERK TELEGRAPH SERVICE Ot 429.9 HEART DISEASE NOS 06/16/2018 BEV BAIN L CLERK TELEGRAPH SERVICE Ot 496 CHR AIRWAY OBSTRUCT NEC 06/16/2018 EBV BAIN L CLERK TELEGRAPH SERVICE Ot 786.09 RESPIRATORY ABNORM NEC 06/16/2018 BEV BAIN L CLERK TELEGRAPH SERVICE Ot 276.8 HYPOPOTASSEMIA 06/16/2018 BAIHÉCTOR POEHER L CLERK TELEGRAPH SERVICE Ot 276.8 HYPOPOTASSEMIA 06/16/2018 SASHA DAVIS, XIAO A Ot 519.19 OTHER DISEASES OF TRACHEA AND BRONCHUS 06/16/2018 SASHA DAVIS, XIAO A Ot 786.6 CHEST SWELLING/MASS/LUMP 06/16/2018 ZENA UMANZOR CLERK TELEGRAPH SERVICE Ot 724.4 LUMBOSACRAL NEURITIS NOS 06/16/2018 ZENA UMANZOR CLERK TELEGRAPH SERVICE Ot 285.9 ANEMIA NOS 06/16/2018 Ot 518.89 OTHER DISEASES OF LUNG, NEC 06/16/2018 Ot 793.11 SOLITARY PULMONARY NODULE 06/16/2018 Ot 585.3 CHRONIC KIDNEY DISEASE, STAGE III (MODER 06/16/2018 IVAN DAVIS, TALAL A Ot 285.9 ANEMIA NOS 06/16/2018 IVAN DAVIS, TALAL A Ot 403.90 HYPTNSV CHR KID DIS, UNSPEC, W CHR KD ST 06/16/2018 IVAN DAVIS TALAL A Ot 585.3 CHRONIC KIDNEY DISEASE, STAGE III (MODER 06/16/2018 CHARLES TEMPLETON SALES PRODUCER Ot 135 SARCOIDOSIS 06/16/2018 CHARLES TEMPLETON SALES PRODUCER Ot 305.1 TOBACCO USE DISORDER 06/16/2018 CHARLES TEMPLETON SALES PRODUCER Ot 327.23 OBSTRUCTIVE SLEEP APNEA (ADULT) (PEDIATR 06/16/2018 CHARLES TEMPLETON SALES PRODUCER Ot 416.8 CHR PULMON HEART DIS NEC 06/16/2018 CHARLES TEMPLETON SALES PRODUCER Ot 493.90 ASTHMA, UNSPECIFIED 06/16/2018 CHARLES TEMPLETON SALES PRODUCER Ot 786.05 SHORTNESS OF BREATH 06/16/2018 CHARLES TEMPLETON SALES PRODUCER Ot 786.09 RESPIRATORY ABNORM NEC 06/16/2018 TIPPING DO, ARNAV C Ot 244.9 HYPOTHYROIDISM NOS 06/16/2018 TIPPING DO, ARNAV C Ot 250.00 DIAB CALIN WO COMPL, TYPE II OR UNSPEC TY 06/16/2018 TIPPING DO, ARNAV C Ot 285.9 ANEMIA NOS 06/16/2018 ARNAV ALBERTO DO Ot 403.90 HYPTNSV CHR KID DIS, UNSPEC, W CHR KD ST 06/16/2018 ARNAV ALBERTO DO Ot 585.9 CHRONIC KIDNEY DISEASE, UNSPECIFIED 06/16/2018 ARNAV ALBERTO DO Ot 799.02 HYPOXEMIA 06/16/2018 LANDON LOVE MD Ot 250.00 DIAB CALIN WO COMPL, TYPE II OR UNSPEC TY 06/16/2018 LANDON LOVE MD Ot 428.32 CHRONIC DIASTOLIC HRT FAILURE 06/16/2018 LANDON LOVE MD Ot 496 CHR AIRWAY OBSTRUCT NEC 06/16/2018 Ot E11.9 TYPE 2 DIABETES MELLITUS WITHOUT COMPLIC 06/16/2018 Ot E78.5 HYPERLIPIDEMIA, UNSPECIFIED 06/16/2018 Ot I12.9 HYPERTENSIVE CHRONIC KIDNEY DISEASE W ST 06/16/2018 Ot N18.9 CHRONIC KIDNEY DISEASE, UNSPECIFIED 06/16/2018 Ot R09.02 HYPOXEMIA 06/16/2018 PASCUAL JORGENSEN DO Ot E66.01 MORBID (SEVERE) OBESITY DUE TO EXCESS CA 06/16/2018 PASCUAL JORGENSEN DO Ot G47.33 OBSTRUCTIVE SLEEP APNEA (ADULT) (PEDIATR 06/16/2018 PASCUAL JORGENSEN DO Ot J45.909 UNSPECIFIED ASTHMA, UNCOMPLICATED 06/16/2018 PASCUAL JORGENSEN DO Ot R59.0 LOCALIZED ENLARGED LYMPH NODES 06/16/2018 BEV BAIN CLERK TELEGRAPH SERVICE Ot E07.9 DISORDER OF THYROID, UNSPECIFIED 06/16/2018 HÉCTOR BAINHER L CLERK TELEGRAPH SERVICE Ot 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 TRICUSPID INSUFFICIENCY 06/16/2018 HÉCTOR BAINHER L CLERK TELEGRAPH SERVICE Ot R00.2 PALPITATIONS 06/16/2018 ODELL BEV L CLERK TELEGRAPH SERVICE Ot R07.9 CHEST PAIN, UNSPECIFIED 06/16/2018 Ot E07.9 DISORDER OF THYROID, UNSPECIFIED 06/16/2018 Ot 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 TRICUSPID INSUFFICIENCY 06/16/2018 Ot R00.2 PALPITATIONS 06/16/2018 Ot R07.9 CHEST PAIN, UNSPECIFIED 06/16/2018 BAIMA BEV L CLERK TELEGRAPH SERVICE Ot E07.9 DISORDER OF THYROID, UNSPECIFIED 06/16/2018 DARIUSMA BEV L CLERK TELEGRAPH SERVICE Ot 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 TRICUSPID INSUFFICIENCY 06/16/2018 BEV BAIN CLERK TELEGRAPH SERVICE Ot R00.2 PALPITATIONS 06/16/2018 DARIUSBEV POE CLERK TELEGRAPH SERVICE Ot R07.9 CHEST PAIN, UNSPECIFIED 06/16/2018 TIPPING DO, ARNAV C Ot D50.9 IRON DEFICIENCY ANEMIA, UNSPECIFIED 06/16/2018 TIPPING DO, ARNAV C Ot E11.9 TYPE 2 DIABETES MELLITUS WITHOUT COMPLIC 06/16/2018 TIPPING DO, ARNAV C Ot E11.9 TYPE 2 DIABETES MELLITUS WITHOUT COMPLIC 06/16/2018 TIPPING DO, ARNAV C Ot E78.2 MIXED HYPERLIPIDEMIA 06/16/2018 TIPPING DO, ARNAV C Ot N18.3 CHRONIC KIDNEY DISEASE, STAGE 3 (MODERAT 06/16/2018 TIPPING DO, ARNAV C Ot D50.9 IRON DEFICIENCY ANEMIA, UNSPECIFIED 06/16/2018 TIPPING DO, ARNAV C Ot E78.5 HYPERLIPIDEMIA, UNSPECIFIED 06/16/2018 JEANETH DAVIS FACC, ALI FACP CCDS Ot D86.0 SARCOIDOSIS OF LUNG 06/16/2018 JEANETH LYLESC, ALI FACP CCDS Ot E11.9 TYPE 2 DIABETES MELLITUS WITHOUT COMPLIC 06/16/2018 JEANETH DAVIS FACC, ALI FACP CCDS Ot E66.2 MORBID (SEVERE) OBESITY WITH ALVEOLAR HY 06/16/2018 JEANETH DAVIS FACC, ALI FACP CCDS Ot 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 06/16/2018 JEANETH DAVIS FACC, ALI FACP CCDS Ot R07.89 OTHER CHEST PAIN 06/16/2018 JEANETH DAVIS FACC, ALI FACP CCDS Ot R09.02 HYPOXEMIA 06/19/2018 CHARLES TEMPLETON SALES PRODUCER Ot E66.2 MORBID (SEVERE) OBESITY WITH ALVEOLAR HY 06/19/2018 CHARLES TEMPLETON SALES PRODUCER Ot R06.02 SHORTNESS OF BREATH 06/19/2018 CHARLES TEMPLETON SALES PRODUCER Ot R09.02 HYPOXEMIA 06/19/2018 CHARLES TEMPLETON SALES PRODUCER Ot R91.1 SOLITARY PULMONARY NODULE 06/19/2018 CHARLES TEMPLETON SALES PRODUCER Ot Z72.0 TOBACCO USE 06/30/2018 CHARLES TEMPLETON SALES PRODUCER Ot E66.2 MORBID (SEVERE) OBESITY WITH ALVEOLAR HY 06/30/2018 YOKASTA, CHARLES E SALES PRODUCER Ot R06.02 SHORTNESS OF BREATH 06/30/2018 CHARLES TEMPLETON SALES PRODUCER Ot R09.02 HYPOXEMIA 06/30/2018 CHARLES TEMPLETON SALES PRODUCER Ot R91.1 SOLITARY PULMONARY NODULE 06/30/2018 CHARLES TEMPLETON SALES PRODUCER Ot Z72.0 TOBACCO USE 07/13/2018 CHARLES TEMPLETON SALES PRODUCER Ot E66.2 MORBID (SEVERE) OBESITY WITH ALVEOLAR HY 07/13/2018 CHARLES TEMPLETON SALES PRODUCER Ot R06.02 SHORTNESS OF BREATH 07/13/2018 CHARLES TEMPLETON SALES PRODUCER Ot R09.02 HYPOXEMIA 07/13/2018 CHARLES TEMPLETON SALES PRODUCER Ot R91.1 SOLITARY PULMONARY NODULE 07/13/2018 CHARLES TEMPLETON SALES PRODUCER Ot Z72.0 TOBACCO USE 08/18/2018 JUDY DAVIS, SARAH Law Ot 276.1 HYPOSMOLALITY 08/18/2018 ZENA UMANZOR CLERK TELEGRAPH SERVICE Ot 625.9 FEM GENITAL SYMPTOMS NOS 08/18/2018 JEANETH DAVIS FACC, ALI FACP CCDS Ot V58.69 OTH MED,LT,CURRENT USE 08/18/2018 SARAH KIM MD Ot 729.5 PAIN IN LIMB 08/18/2018 SARAH KIM MD Ot 729.81 SWELLING OF LIMB 08/18/2018 BEV BAIN CLERK TELEGRAPH SERVICE Ot 276.8 HYPOPOTASSEMIA 08/18/2018 BAIBEV POE L CLERK TELEGRAPH SERVICE Ot 276.8 HYPOPOTASSEMIA 08/18/2018 BAIBEV POE CLERK TELEGRAPH SERVICE Ot V58.69 OT MED,LT,CURRENT USE 08/18/2018 YAMILETH LAURENT MD Ot 429.3 CARDIOMEGALY 08/18/2018 YAMILETH LAURENT MD Ot 496 CHR AIRWAY OBSTRUCT NEC 08/18/2018 JEANETH DAVIS FACC, ALI FACP CCDS Ot 416.8 CHR PULMON HEART DIS NEC 08/18/2018 JEANETH DAVIS FACC, ALI FACP CCDS Ot 427.89 CARDIAC DYSRHYTHMIAS NEC 08/18/2018 JEANETH DAVIS FACC, ALI FACP CCDS Ot 496 CHR AIRWAY OBSTRUCT NEC 08/18/2018 JEANETH DAVIS FACC, ALI FACP CCDS Ot 785.6 ENLARGEMENT LYMPH NODES 08/18/2018 JEANETH DAVIS FAC, ALI FACP CCDS Ot 786.05 SHORTNESS OF BREATH 08/18/2018 JEANETH DAVIS FAC, ALI FACP CCDS Ot 786.50 CHEST PAIN NOS 08/18/2018 BAIMA, BEV L CLERK TELEGRAPH SERVICE Ot 278.01 MORBID OBESITY 08/18/2018 BAIMA, BEV L CLERK TELEGRAPH SERVICE Ot 278.03 OBESITY HYPOVENTILATION SYNDROME 08/18/2018 BAIMA, BEV L CLERK TELEGRAPH SERVICE Ot 305.1 TOBACCO USE DISORDER 08/18/2018 BAIMA, BEV L CLERK TELEGRAPH SERVICE Ot 397.0 TRICUSPID VALVE DISEASE 08/18/2018 BAIMA, BEV L CLERK TELEGRAPH SERVICE Ot 416.8 CHR PULMON HEART DIS NEC 08/18/2018 BAIMA, BEV L CLERK TELEGRAPH SERVICE Ot 424.0 MITRAL VALVE DISORDER 08/18/2018 BAIMA, BEV L CLERK TELEGRAPH SERVICE Ot 429.9 HEART DISEASE NOS 08/18/2018 BAIMA, BEV L CLERK TELEGRAPH SERVICE Ot 496 CHR AIRWAY OBSTRUCT NEC 08/18/2018 BAIMA, BEV L CLERK TELEGRAPH SERVICE Ot 786.09 RESPIRATORY ABNORM NEC 08/18/2018 BAIMA, BEV L CLERK TELEGRAPH SERVICE Ot 276.8 HYPOPOTASSEMIA 08/18/2018 BAIMA, BEV L CLERK TELEGRAPH SERVICE Ot 276.8 HYPOPOTASSEMIA 08/18/2018 SASHA DAVIS, XIAO A Ot 519.19 OTHER DISEASES OF TRACHEA AND BRONCHUS 08/18/2018 SASHA DAVIS, XIAO A Ot 786.6 CHEST SWELLING/MASS/LUMP 08/18/2018 ZENA UMANZOR CLERK TELEGRAPH SERVICE Ot 724.4 LUMBOSACRAL NEURITIS NOS 08/18/2018 ZENA UMANZOR CLERK TELEGRAPH SERVICE Ot 285.9 ANEMIA NOS 08/18/2018 Ot 518.89 OTHER DISEASES OF LUNG, NEC 08/18/2018 Ot 793.11 SOLITARY PULMONARY NODULE 08/18/2018 Ot 585.3 CHRONIC KIDNEY DISEASE, STAGE III (MODER 08/18/2018 LANDON LOVE MD A Ot 285.9 ANEMIA NOS 08/18/2018 IVAN DAVIS, LANDON A Ot 403.90 HYPTNSV CHR KID DIS, UNSPEC, W CHR KD ST 08/18/2018 LANDON LOVE MD Ot 585.3 CHRONIC KIDNEY DISEASE, STAGE III (MODER 08/18/2018 CHARLES TEMPLETON APRN Ot 135 SARCOIDOSIS 08/18/2018 CHARLES TEMPLETON SALES PRODUCER Ot 305.1 TOBACCO USE DISORDER 08/18/2018 CHARLES TEMPLETON SALES PRODUCER Ot 327.23 OBSTRUCTIVE SLEEP APNEA (ADULT) (PEDIATR 08/18/2018 CHARLES TEMPLETON SALES PRODUCER Ot 416.8 CHR PULMON HEART DIS NEC 08/18/2018 CHARLES TEMPLETON SALES PRODUCER Ot 493.90 ASTHMA, UNSPECIFIED 08/18/2018 CHARLES TEMPLETON SALES PRODUCER Ot 786.05 SHORTNESS OF BREATH 08/18/2018 CHARLES TEMPLETON SALES PRODUCER Ot 786.09 RESPIRATORY ABNORM NEC 08/18/2018 TIPPING DO, ARNAV C Ot 244.9 HYPOTHYROIDISM NOS 08/18/2018 TIPPING DO, ARNAV C Ot 250.00 DIAB CALIN WO COMPL, TYPE II OR UNSPEC TY 08/18/2018 TIPPING DO, ARNAV C Ot 285.9 ANEMIA NOS 08/18/2018 TIPPING DO, ARNAV C Ot 403.90 HYPTNSV CHR KID DIS, UNSPEC, W CHR KD ST 08/18/2018 TIPPING DO, ARNAV C Ot 585.9 CHRONIC KIDNEY DISEASE, UNSPECIFIED 08/18/2018 TIPPING DO, ARNAV C Ot 799.02 HYPOXEMIA 08/18/2018 LANDON LOVE MD Ot 250.00 DIAB CALIN WO COMPL, TYPE II OR UNSPEC TY 08/18/2018 LANDON LOVE MD Ot 428.32 CHRONIC DIASTOLIC HRT FAILURE 08/18/2018 LANDON LOVE MD Ot 496 CHR AIRWAY OBSTRUCT NEC 08/18/2018 Ot E11.9 TYPE 2 DIABETES MELLITUS WITHOUT COMPLIC 08/18/2018 Ot E78.5 HYPERLIPIDEMIA, UNSPECIFIED 08/18/2018 Ot I12.9 HYPERTENSIVE CHRONIC KIDNEY DISEASE W ST 08/18/2018 Ot N18.9 CHRONIC KIDNEY DISEASE, UNSPECIFIED 08/18/2018 Ot R09.02 HYPOXEMIA 08/18/2018 PASCUAL JORGENSEN DO Ot E66.01 MORBID (SEVERE) OBESITY DUE TO EXCESS CA 08/18/2018 PASCUAL JORGENSEN DO Ot G47.33 OBSTRUCTIVE SLEEP APNEA (ADULT) (PEDIATR 08/18/2018 PASCUAL JORGENSEN DO Ot J45.909 UNSPECIFIED ASTHMA, UNCOMPLICATED 08/18/2018 PASCUAL JORGENSEN DO Ot R59.0 LOCALIZED ENLARGED LYMPH NODES 08/18/2018 HÉCTOR BAINHER L CLERK TELEGRAPH SERVICE Ot E07.9 DISORDER OF THYROID, UNSPECIFIED 08/18/2018 BAIMA, BEV L CLERK TELEGRAPH SERVICE Ot 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 TRICUSPID INSUFFICIENCY 08/18/2018 BAIMA, BEV L CLERK TELEGRAPH SERVICE Ot R00.2 PALPITATIONS 08/18/2018 BAIMA, BEV L CLERK TELEGRAPH SERVICE Ot R07.9 CHEST PAIN, UNSPECIFIED 08/18/2018 Ot E07.9 DISORDER OF THYROID, UNSPECIFIED 08/18/2018 Ot 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 TRICUSPID INSUFFICIENCY 08/18/2018 Ot R00.2 PALPITATIONS 08/18/2018 Ot R07.9 CHEST PAIN, UNSPECIFIED 08/18/2018 BAIMA, BEV L CLERK TELEGRAPH SERVICE Ot E07.9 DISORDER OF THYROID, UNSPECIFIED 08/18/2018 BAIMA, BEV L CLERK TELEGRAPH SERVICE Ot 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 TRICUSPID INSUFFICIENCY 08/18/2018 BAIMA, BEV L CLERK TELEGRAPH SERVICE Ot R00.2 PALPITATIONS 08/18/2018 BAIMA, BEV L CLERK TELEGRAPH SERVICE Ot R07.9 CHEST PAIN, UNSPECIFIED 08/18/2018 TIPPING DO, ARNAV C Ot D50.9 IRON DEFICIENCY ANEMIA, UNSPECIFIED 08/18/2018 TIPPING DO, ARNAV C Ot E11.9 TYPE 2 DIABETES MELLITUS WITHOUT COMPLIC 08/18/2018 TIPPING DO, ARNAV C Ot E11.9 TYPE 2 DIABETES MELLITUS WITHOUT COMPLIC 08/18/2018 TIPPING DO, ARNAV C Ot E78.2 MIXED HYPERLIPIDEMIA 08/18/2018 TIPPING DO, ARNAV C Ot N18.3 CHRONIC KIDNEY DISEASE, STAGE 3 (MODERAT 08/18/2018 TIPPING DO, ARNAV C Ot D50.9 IRON DEFICIENCY ANEMIA, UNSPECIFIED 08/18/2018 TIPPING DO, ARNAV C Ot E78.5 HYPERLIPIDEMIA, UNSPECIFIED 08/18/2018 JEANETH DAVIS FACC, ALI FACP CCDS Ot D86.0 SARCOIDOSIS OF LUNG 08/18/2018 JEANETH DAVIS FACC, ALI FACP CCDS Ot E11.9 TYPE 2 DIABETES MELLITUS WITHOUT COMPLIC 08/18/2018 JEANETH DAVIS FACC, ALI FACP CCDS Ot E66.2 MORBID (SEVERE) OBESITY WITH ALVEOLAR HY 08/18/2018 JEANETH DAVIS FACC, SOPHIE FACP CCDS Ot 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 08/18/2018 JEANETH DAVIS FACC, ALI FACP CCDS Ot R07.89 OTHER CHEST PAIN 08/18/2018 JEANETH DAVIS FACC, ALI FACP CCDS Ot R09.02 HYPOXEMIA 08/18/2018 CHARLES TEMPLETON SALES PRODUCER Ot E66.2 MORBID (SEVERE) OBESITY WITH ALVEOLAR HY 08/18/2018 YOKASTAMOOK MONROEINE Jason SALES PRODUCER Ot R06.02 SHORTNESS OF BREATH 08/18/2018 YOKASTACHARLES MONROE SALES PRODUCER Ot R09.02 HYPOXEMIA 08/18/2018 YOKASTAMOOK MONROEINE Jason SALES PRODUCER Ot R91.1 SOLITARY PULMONARY NODULE 08/18/2018 MOOK TEMPLETONINE Jason SALES PRODUCER Ot Z72.0 TOBACCO USE 09/03/2018 YOKASTAMOOK MONROEINE Jason SALES PRODUCER Ot E66.2 MORBID (SEVERE) OBESITY WITH ALVEOLAR HY 09/03/2018 YOKASTAMOOK MONROEINE Jason SALES PRODUCER Ot R06.02 SHORTNESS OF BREATH 09/03/2018 YOKASTAMOOK MONROEINE Jason SALES PRODUCER Ot R09.02 HYPOXEMIA 09/03/2018 YOKASTAMOOK MONROEINE E SALES PRODUCER Ot R91.1 SOLITARY PULMONARY NODULE 09/03/2018 MOOK TEMPLETONINE Jason SALES PRODUCER Ot Z72.0 TOBACCO USE 10/03/2018 YOKASTAMOOK MONROEINE E SALES PRODUCER Ot E66.2 MORBID (SEVERE) OBESITY WITH ALVEOLAR HY 10/03/2018 YOKASTAMOOK MONROEINE E SALES PRODUCER Ot R06.02 SHORTNESS OF BREATH 10/03/2018 MOOK TEMPLETONINE E SALES PRODUCER Ot R09.02 HYPOXEMIA 10/03/2018 MOOK TEMPLETONINE E SALES PRODUCER Ot R91.1 SOLITARY PULMONARY NODULE 10/03/2018 MOOK TEMPLETONINE Jason SALES PRODUCER Ot Z72.0 TOBACCO USE Procedures Code Description Performed By Performed On 47.01 LAPAROSCOP APPENDECTOMY 05/12/2012 65.01 LAPAROSCOP OOPHOROTOMY 05/12/2012 29681 URINE DRUG SCREEN (IN-HOUSE ) 11/19/2012 54226 OXIMETRY 12/16/2012 40354 ROUTINE VENIPUNCTURE 01/06/2013 05029 CBC 01/06/2013 44506 LIPID PANEL 01/06/2013 31932 CMP 01/06/2013 5191640 GFR CALC (RESULT ONLY) 01/06/2013 96155 A1C (RML) 01/07/2013 15728 TSH 01/07/2013 36332 VITAMIN D 25-HYDROXY (D2,D3 , TOTAL) 01/07/2013 03030 ROUTINE VENIPUNCTURE 01/20/2013 37437 CMP 01/20/2013 1134129 GFR CALC (RESULT ONLY) 01/20/2013 73586 MAGNESIUM 01/20/2013 67793 ROUTINE VENIPUNCTURE 01/22/2013 63096 BMP 01/22/2013 03631 MAGNESIUM 01/22/2013 0560661 GFR CALC (RESULT ONLY) 01/22/2013 43888 ROUTINE VENIPUNCTURE 01/25/2013 24287 BMP 01/25/2013 91077 MAGNESIUM 01/25/2013 9852284 GFR CALC (RESULT ONLY) 01/25/2013 45.16 ESOPHAGOGASTRODUODENOSCOPY [ EGD] W/CLOSE 02/02/2013 63815 ROUTINE VENIPUNCTURE 02/08/2013 82912 BMP 02/08/2013 0639652 GFR CALC (RESULT ONLY) 02/08/2013 27598 ROUTINE VENIPUNCTURE 02/10/2013 44247 BMP 02/11/2013 4066164 GFR CALC (RESULT ONLY) 02/11/2013 11163 ROUTINE VENIPUNCTURE 02/17/2013 81576 BMP 02/17/2013 8300327 GFR CALC (RESULT ONLY) 02/17/2013 64629 MAGNESIUM 02/17/2013 43848 BNP 02/18/2013 46931 ROUTINE VENIPUNCTURE 02/19/2013 41532 BMP 02/19/2013 43793 MAGNESIUM 02/19/2013 [id number] GFR CALC (RESULT ONLY) 02/19/2013 62696 BNP 02/20/2013 75440 ROUTINE VENIPUNCTURE 03/10/2013 19115 BMP 03/10/2013 39627 MAGNESIUM 03/10/2013 7122914 GFR CALC (RESULT ONLY) 03/10/2013 17610 VENOUS DOPPLER UNILATERAL/ LIMITED 03/12/2013 61540 OXIMETRY 03/12/2013 37817 ROUTINE VENIPUNCTURE 03/24/2013 99781 BMP 03/24/2013 82404 MAGNESIUM 03/24/2013 8727296 GFR CALC (RESULT ONLY) 03/24/2013 83977 ROUTINE VENIPUNCTURE 05/11/2013 60218 OXIMETRY 05/11/2013 21965 MAGNESIUM 05/11/2013 46116 BMP 05/11/2013 9367506 GFR CALC (RESULT ONLY) 05/11/2013 56608 TSH 05/11/2013 39544 T4 FREE 05/11/2013 67009 US PELVIC COMPL (REFLEX CPT - 64564) 05/13/2013 41931 ROUTINE VENIPUNCTURE 05/13/2013 35058 URINE TEST (IN- HOUSE) 05/13/2013 23690 FSH 05/13/2013 53168 LH 05/13/2013 57220 TESTOSTERONE-WOMEN & CHILDREN 05/16/2013 85660 ROUTINE VENIPUNCTURE 05/31/2013 39142 CBC 05/31/2013 84722 MAGNESIUM 05/31/2013 4170057 GFR CALC (RESULT ONLY) 05/31/2013 47809 BMP 05/31/2013 J2930 SOLUMEDROL INJ 06/03/2013 76062 THERAPUTIC INJ SQ/IM 06/03/2013 53678 STREP A (IN-HOUSE) 06/11/2013 22894 MEASURE BLOOD OXYGEN LEVEL 06/11/2013 32927 OXIMETRY 07/06/2013 88866 VENOUS DOPPLER UNILATERAL/ LIMITED 07/28/2013 87826 OXIMETRY 08/05/2013 21555 A1C (IN-HOUSE) 08/05/2013 G0008 FLU ADMINISTRATION ( MEDICARE ONLY) 08/05/2013 80136 ROUTINE VENIPUNCTURE 09/07/2013 8958320 GFR CALC (RESULT ONLY) 09/07/2013 57437 BMP 09/07/2013 94217 XRAY CHEST 2 VIEW 09/08/2013 41273 ROUTINE VENIPUNCTURE 10/01/2013 89632 OXIMETRY 10/01/2013 82129 BMP 10/01/2013 8541172 GFR CALC (RESULT ONLY) 10/01/2013 87255 BNP 10/02/2013 48061 ROUTINE VENIPUNCTURE 10/26/2013 84968 UA LONG DIP 10/26/2013 60468 BMP 11/01/2013 46599 MAGNESIUM 11/01/2013 47823 CULTURE URINE 11/01/2013 12304 OXIMETRY 11/01/2013 50178 OXIMETRY 11/14/2013 80177 OXIMETRY 11/15/2013 97815 ROUTINE VENIPUNCTURE 12/03/2013 3839220 GFR CALC (RESULT ONLY) 12/03/2013 39439 MAGNESIUM 12/03/2013 28596 BMP 12/03/2013 95907 ROUTINE VENIPUNCTURE 12/13/2013 2892546 GFR CALC (RESULT ONLY) 12/13/2013 62446 BMP 12/13/2013 89911 OXIMETRY 12/20/2013 Physical Wound Care, [facility] 12/20/2013 83178 A1C (IN-HOUSE) 12/20/2013 54063 THERAPUTIC INJ SQ/IM 12/28/2013 J0696 ROCEPHIN INJ 1 g 12/28/2013 68828 CULTURE WOUND (AEROBIC) 12/28/2013 28223 OXIMETRY 01/10/2014 02452 ROUTINE VENIPUNCTURE 01/17/2014 16367 CULTURE WOUND (AEROBIC) 01/17/2014 2373993 GFR CALC (RESULT ONLY) 01/17/2014 27791 CMP 01/17/2014 17620 LIPID PANEL 01/17/2014 02472 TSH 01/17/2014 58972 CBC 01/17/2014 76716 ROUTINE VENIPUNCTURE 01/31/2014 92291 CBC 01/31/2014 96892 OXIMETRY 02/02/2014 56294 XRAY CHEST 2 VIEW 02/02/2014 89095 XRAY CHEST 2 VIEW 02/15/2014 46764 ROUTINE VENIPUNCTURE 03/07/2014 49543 OXIMETRY 03/07/2014 3866144 GFR CALC (RESULT ONLY) 03/07/2014 90487 CMP 03/07/2014 67775 CBC 03/07/2014 42709 OXIMETRY 03/21/2014 74160 ROUTINE VENIPUNCTURE 05/17/2014 90636 [place]XIMETRY 05/17/[place] [facility] [place] 6954343 GFR CALC (RESULT ONLY) 05/18/2014 47016 CMP 05/18/2014 51338 OXIMETRY 06/17/2014 15552 MRI SPINE (LUMBAR) W/O CONTRAST 07/29/2014 95826 OXIMETRY 07/29/2014 71844 THERAPUTIC INJ SQ/IM 07/29/2014 J1885 TORADOL INJ 07/29/2014 10213 IV INFUSION 09/02/2014 J1940 furosemide 10 mg/mL solution 09/02/2014 J2930 SOLUMEDROL INJ 09/02/2014 42105 OXIMETRY 09/02/2014 72054 OXIMETRY 09/07/2014 75252 ROUTINE VENIPUNCTURE 09/08/2014 2619779 GFR CALC (RESULT ONLY) 09/08/2014 17717 BMP 09/08/2014 45731 OXIMETRY 09/21/2014 59204 OXIMETRY 09/28/2014 51622 PET SCAN, FULL BODY 10/05/2014 56955 OXIMETRY 10/05/2014 [facility] 10/05/2014 96.04 INSERT ENDOTRACHEAL TUBE 10/07/2014 96.71 CONTINUOUS INVASIVE MECHANICAL VENTILATI 10/07/2014 81634 OXIMETRY 11/04/2014 Results Test Result Range Complete urinalysis with reflex to culture - 08/06/16 07:48 Urine color determination YELLOW NRG Urine clarity determination SLIGHTLY CLOUDY NRG Urine pH measurement by test strip 6 5-9 Specific gravity of urine by test strip 1.015 1.016- 1.022 Urine protein assay by test strip, semi-quantitative NEGATIVE NEGATIVE Urine glucose detection by automated test strip NEGATIVE NEGATIVE Erythrocytes detection in urine sediment by light microscopy NEGATIVE NEGATIVE Urine ketones detection by automated test strip NEGATIVE NEGATIVE Urine nitrite detection by test strip NEGATIVE NEGATIVE Urine total bilirubin detection by test strip NEGATIVE NEGATIVE Urine urobilinogen measurement by automated test strip (mass/volume) NORMAL NORMAL Urine leukocyte esterase detection by dipstick 1+ NEGATIVE Automated urine sediment erythrocyte count by microscopy (number/high power field) NONE NRG Automated urine sediment leukocyte count by microscopy (number/high power field ) [HPF] NRG Bacteria detection in urine sediment by light microscopy FEW NRG Squamous epithelial cells detection in urine sediment by light microscopy 25-50 NRG Crystals detection in urine sediment by light microscopy NONE NRG Casts detection in urine sediment by light microscopy NONE NRG Mucus detection in urine sediment by light microscopy NEGATIVE NRG Complete urinalysis with reflex to culture NO NRG Lipid 1996 panel - 08/06/16 07:48 Serum or plasma triglyceride measurement (mass/volume) 237 mg/dL <150 Serum or plasma cholesterol measurement (mass/volume) 212 mg/dL < 200 Serum or plasma cholesterol in HDL measurement (mass/volume) 41 mg/ dL 40-60 Cholesterol in LDL [mass/volume] in serum or plasma by direct assay 136 mg/dL 1-129 Serum or plasma cholesterol in VLDL measurement (mass/volume) 47 mg/ dL 5-40 Hemoglobin A1c - 08/06/16 07:48 Hemoglobin A1c 5.0 % 4.5-6.2 THYROID STIMULATING HORMONE - 08/06/16 07:48 THYROID STIMULATING HORMONE 3.13 u[iU]/mL 0.35-4.94 Serum or plasma thyroxine (T4) free measurement (mass/volume) - 08/06/16 07:48 Serum or plasma thyroxine (T4) free measurement (mass/volume) 0.94 ng/dL 0.70-1.48 Serum or plasma lactate measurement (moles/volume) - 08/19/16 00:20 Serum or plasma lactate measurement (moles/volume) 2.7 mmol/L 0.5-2.0 Complete blood count (CBC) with automated white blood cell (WBC) differential - 08/19/16 21:52 Blood leukocytes automated count (number/volume) 18.0 10*3/uL 4.3-11.0 Blood erythrocytes automated count (number/volume) 4.79 10*6/uL 4.35-5.85 Venous blood hemoglobin measurement (mass/volume) 13.7 g/dL 11.5-16.0 Blood hematocrit (volume fraction) 43 % 35-52 Automated erythrocyte mean corpuscular volume 91 [foz_us] 80-99 Automated erythrocyte mean corpuscular hemoglobin (mass per erythrocyte) 29 pg 25-34 Automated erythrocyte mean corpuscular hemoglobin concentration measurement ( mass/volume) 32 g/dL 32-36 Automated erythrocyte distribution width ratio 14.6 % 10.0-14.5 Automated blood platelet count (count/volume) 381 10*3/uL 130-400 Automated blood platelet mean volume measurement 10.2 [foz_us] 7.4-10.4 Automated blood neutrophils/100 leukocytes 86 % 42-75 Automated blood lymphocytes/100 leukocytes 10 % 12-44 Blood monocytes/100 leukocytes 3 % 0-12 Automated blood eosinophils/100 leukocytes 1 % 0-10 Automated blood basophils/100 leukocytes 0 % 0-10 Blood neutrophils automated count (number/volume) 15.4 10*3 1.8-7.8 Blood lymphocytes automated count (number/volume) 1.8 10*3 1.0-4.0 Blood monocytes automated count (number/volume) 0.6 10*3 0.0-1.0 Automated eosinophil count 0.2 10*3/uL 0.0-0.3 Automated blood basophil count (count/volume) 0.0 10*3/uL 0.0-0.1 Blood manual differential performed detection - 08/19/16 21:52 Blood monocytes/100 leukocytes 3 % NRG Manual blood segmented neutrophils/100 leukocytes 84 % NRG Blood band neutrophils/100 leukocytes 0 % NRG Manual blood lymphocytes/100 leukocytes 12 % NRG Manual eosinophils/100 leukocytes in nose 1 % NRG Manual blood basophils/100 leukocytes 0 % NRG Blood erythrocyte morphology finding identification NORMAL NRG Blood toxic granules detection by light microscopy 1+ NRG Whole blood basic metabolic panel - 08/19/16 21:52 Serum or plasma sodium measurement (moles/volume) 141 mmol/L 135-145 Serum or plasma potassium measurement (moles/volume) 4.1 mmol/L 3.6-5.0 Serum or plasma chloride measurement (moles/volume) 104 mmol/L 98-107 Carbon dioxide 25 mmol/L 21-32 Serum or plasma anion gap determination (moles/volume) 12 mmol/L 5-14 Serum or plasma urea nitrogen measurement (mass/volume) 8 mg/dL 7-18 Serum or plasma creatinine measurement (mass/volume) 0.72 mg/dL 0.60-1.30 Serum or plasma urea nitrogen/creatinine mass ratio 11 NRG Serum or plasma creatinine measurement with calculation of estimated glomerular filtration rate > NRG Serum or plasma glucose measurement (mass/volume) 114 mg/dL 70-105 Serum or plasma calcium measurement (mass/volume) 9.5 mg/dL 8.5-10.1 Arterial blood gas measurement - 08/19/16 22:11 Blood pCO2 47 mm[Hg] 35-45 Blood pO2 73 mm[Hg] 79-93 Arterial blood bicarbonate measurement (moles/volume) 28 mmol/L 23-27 Arterial blood base excess by calculation 3.0 mmol/L -2.5 -2.5 Arterial blood oxygen saturation measurement 96 % 94-100 * Inhaled oxygen flow rate 2L NRG Arterial blood pH measurement with patient temperature correction 7.40 7.37-7.43 Arterial blood carbon dioxide, total measurement (moles/volume) 29.7 mmol/L 21.0-31.0 Body site RT RAD NRG Assessment of wrist artery patency prior to arterial puncture YES- POS NRG Setting of ventilation mode NO NRG Measurement of body temperature 99.5 NRG Blood lactic acid measurement (moles/volume) - 08/19/16 22:17 Blood lactic acid measurement (moles/volume) 2.3 mmol/L 0.5-2.0 Bacterial blood culture - 08/19/16 22:17 FREE TEXT EXTERNAL SEE COMMENTS NRG QUANTITY OF GROWTH Isolated NRG Bacterial blood culture [id number] [facility] Bacterial blood culture - 08/19/16 22:20 Bacterial blood culture NG [facility] Serum or plasma lactate measurement (moles/volume) - 08/20/16 00:20 Serum or plasma lactate measurement (moles/volume) 2.7 mmol/L 0.5-2.0 Complete blood count (CBC) with automated white blood cell (WBC) differential - 08/20/16 04:50 Blood leukocytes automated count (number/volume) 14.8 10*3/uL 4.3-11.0 Blood erythrocytes automated count (number/volume) 4.43 10*6/uL 4.35-5.85 Venous blood hemoglobin measurement (mass/volume) 12.8 g/dL 11.5-16.0 Blood hematocrit (volume fraction) 41 % 35-52 Automated erythrocyte mean corpuscular volume 91 [foz_us] 80-99 Automated erythrocyte mean corpuscular hemoglobin (mass per erythrocyte) 29 pg 25-34 Automated erythrocyte mean corpuscular hemoglobin concentration measurement ( mass/volume) 32 g/dL 32-36 Automated erythrocyte distribution width ratio 14.4 % 10.0-14.5 Automated blood platelet count (count/volume) 334 10*3/uL 130-400 Automated blood platelet mean volume measurement 10.5 [foz_us] 7.4-10.4 Automated blood neutrophils/100 leukocytes 94 % 42-75 Automated blood lymphocytes/100 leukocytes 5 % 12-44 Blood monocytes/100 leukocytes 1 % 0-12 Automated blood eosinophils/100 leukocytes 0 % 0-10 Automated blood basophils/100 leukocytes 0 % 0-10 Blood neutrophils automated count (number/volume) 14.0 10*3 1.8-7.8 Blood lymphocytes automated count (number/volume) 0.8 10*3 1.0-4.0 Blood monocytes automated count (number/volume) 0.1 10*3 0.0-1.0 Automated eosinophil count 0.0 10*3/uL 0.0-0.3 Automated blood basophil count (count/volume) 0.0 10*3/uL 0.0-0.1 Capillary blood glucose measurement by glucometer (mass/volume) - 08/20/16 04: 59 Capillary blood glucose measurement by glucometer (mass/volume) 160 mg/dL 70-110 Automated blood complete blood count (hemogram) panel - 12/04/16 08:48 Blood leukocytes automated count (number/volume) 18.4 10*3/uL 4.3-11.0 Blood erythrocytes automated count (number/volume) 4.29 10*6/uL 4.35-5.85 Venous blood hemoglobin measurement (mass/volume) 11.9 g/dL 11.5-16.0 Blood hematocrit (volume fraction) 38 % 35-52 Automated erythrocyte mean corpuscular volume 89 [foz_us] 80-99 Automated erythrocyte mean corpuscular hemoglobin (mass per erythrocyte) 28 pg 25-34 Automated erythrocyte mean corpuscular hemoglobin concentration measurement ( mass/volume) 31 g/dL 32-36 Automated erythrocyte distribution width ratio 16.1 % 10.0-14.5 Automated blood platelet count (count/volume) 395 10*3/uL 130-400 Automated blood platelet mean volume measurement 9.6 [foz_us] 7.4-10.4 Comprehensive metabolic panel - 12/04/16 08:48 Serum or plasma sodium measurement (moles/volume) 139 mmol/L 135-145 Serum or plasma potassium measurement (moles/volume) 4.0 mmol/L 3.6-5.0 Serum or plasma chloride measurement (moles/volume) 105 mmol/L 98-107 Carbon dioxide 23 mmol/L 21-32 Serum or plasma anion gap determination (moles/volume) 11 mmol/L 5-14 Serum or plasma urea nitrogen measurement (mass/volume) 9 mg/dL 7-18 Serum or plasma creatinine measurement (mass/volume) 0.73 mg/dL 0.60-1.30 Serum or plasma urea nitrogen/creatinine mass ratio 12 NRG Serum or plasma creatinine measurement with calculation of estimated glomerular filtration rate > NRG Serum or plasma glucose measurement (mass/volume) 97 mg/dL 70-105 Serum or plasma calcium measurement (mass/volume) 8.9 mg/dL 8.5-10.1 Serum or plasma total bilirubin measurement (mass/volume) 0.2 mg/dL 0.1-1.0 Serum or plasma alkaline phosphatase measurement (enzymatic activity/volume) 155 U/L 40-136 Serum or plasma aspartate aminotransferase measurement (enzymatic activity/ volume) 14 U/L 5-34 Serum or plasma alanine aminotransferase measurement (enzymatic activity/volume ) 17 U/L 0-55 Serum or plasma protein measurement (mass/volume) 6.5 g/dL 6.4-8.2 Serum or plasma albumin measurement (mass/volume) 3.8 g/dL 3.2-4.5 Lipid 1996 panel - 12/04/16 08:48 Serum or plasma triglyceride measurement (mass/volume) 110 mg/dL <150 Serum or plasma cholesterol measurement (mass/volume) 132 mg/dL < 200 Serum or plasma cholesterol in HDL measurement (mass/volume) 41 mg/ dL 40-60 Cholesterol in LDL [mass/volume] in serum or plasma by direct assay 76 mg/dL 1-129 Serum or plasma cholesterol in VLDL measurement (mass/volume) 22 mg/ dL 5-40 Complete blood count (CBC) with automated white blood cell (WBC) differential - 12/13/16 18:29 Blood leukocytes automated count (number/volume) 13.5 10*3/uL 4.3-11.0 Blood erythrocytes automated count (number/volume) 4.36 10*6/uL 4.35-5.85 Venous blood hemoglobin measurement (mass/volume) 12.1 g/dL 11.5-16.0 Blood hematocrit (volume fraction) 39 % 35-52 Automated erythrocyte mean corpuscular volume 88 [foz_us] 80-99 Automated erythrocyte mean corpuscular hemoglobin (mass per erythrocyte) 28 pg 25-34 Automated erythrocyte mean corpuscular hemoglobin concentration measurement ( mass/volume) 31 g/dL 32-36 Automated erythrocyte distribution width ratio 16.1 % 10.0-14.5 Automated blood platelet count (count/volume) 358 10*3/uL 130-400 Automated blood platelet mean volume measurement 10.3 [foz_us] 7.4-10.4 Automated blood neutrophils/100 leukocytes 78 % 42-75 Automated blood lymphocytes/100 leukocytes 15 % 12-44 Blood monocytes/100 leukocytes 5 % 0-12 Automated blood eosinophils/100 leukocytes 2 % 0-10 Automated blood basophils/100 leukocytes 0 % 0-10 Blood neutrophils automated count (number/volume) 10.6 10*3 1.8-7.8 Blood lymphocytes automated count (number/volume) 2.0 10*3 1.0-4.0 Blood monocytes automated count (number/volume) 0.7 10*3 0.0-1.0 Automated eosinophil count 0.2 10*3/uL 0.0-0.3 Automated blood basophil count (count/volume) 0.1 10*3/uL 0.0-0.1 Streptococcus pyogenes antigen detection - 05/29/17 14:30 Streptococcus pyogenes antigen detection NEGATIVE NEGATIVE Bacterial throat culture - 05/29/17 14:30 Bacterial throat culture NBS NRG Arterial blood gas measurement - 06/01/17 16:05 Blood pCO2 49 mm[Hg] 35-45 Blood pO2 66 mm[Hg] 79-93 Arterial blood bicarbonate measurement (moles/volume) 27 mmol/L 23-27 Arterial blood base excess by calculation 1.8 mmol/L -2.5 -2.5 Arterial blood oxygen saturation measurement 94 % 94-100 * Inhaled oxygen flow rate 3.5L NRG Arterial blood pH measurement with patient temperature correction 7.35 7.37-7.43 Arterial blood carbon dioxide, total measurement (moles/volume) 28.3 mmol/L 21.0-31.0 Body site RR NRG Assessment of wrist artery patency prior to arterial puncture YES- POS NRG Setting of ventilation mode NO NRG Measurement of body temperature 98.7 NRG Complete blood count (CBC) with automated white blood cell (WBC) differential - 06/01/17 16:15 Blood leukocytes automated count (number/volume) 12.2 10*3/uL 4.3-11.0 Blood erythrocytes automated count (number/volume) 4.40 10*6/uL 4.35-5.85 Venous blood hemoglobin measurement (mass/volume) 12.5 g/dL 11.5-16.0 Blood hematocrit (volume fraction) 41 % 35-52 Automated erythrocyte mean corpuscular volume 93 [foz_us] 80-99 Automated erythrocyte mean corpuscular hemoglobin (mass per erythrocyte) 28 pg 25-34 Automated erythrocyte mean corpuscular hemoglobin concentration measurement ( mass/volume) 31 g/dL 32-36 Automated erythrocyte distribution width ratio 14.9 % 10.0-14.5 Automated blood platelet count (count/volume) 326 10*3/uL 130-400 Automated blood platelet mean volume measurement 10.3 [foz_us] 7.4-10.4 Automated blood neutrophils/100 leukocytes 81 % 42-75 Automated blood lymphocytes/100 leukocytes 12 % 12-44 Blood monocytes/100 leukocytes 5 % 0-12 Automated blood eosinophils/100 leukocytes 1 % 0-10 Automated blood basophils/100 leukocytes 0 % 0-10 Blood neutrophils automated count (number/volume) 9.9 10*3 1.8-7.8 Blood lymphocytes automated count (number/volume) 1.4 10*3 1.0-4.0 Blood monocytes automated count (number/volume) 0.7 10*3 0.0-1.0 Automated eosinophil count 0.1 10*3/uL 0.0-0.3 Automated blood basophil count (count/volume) 0.1 10*3/uL 0.0-0.1 PT panel in platelet poor plasma by coagulation assay - 06/01/17 16:15 Prothrombin time (PT) in platelet poor plasma by coagulation assay 12.5 s 12.2-14.7 INR in platelet poor plasma or blood by coagulation assay 0.9 0.8-1.4 Activated partial thromboplastin time (aPTT) in platelet poor plasma bycoagulation assay - 06/01/17 16:15 Activated partial thromboplastin time (aPTT) in platelet poor plasma bycoagulation assay 32 s 24-35 Comprehensive metabolic panel - 06/01/17 16:15 Serum or plasma sodium measurement (moles/volume) 142 mmol/L 135-145 Serum or plasma potassium measurement (moles/volume) 3.8 mmol/L 3.6-5.0 Serum or plasma chloride measurement (moles/volume) 106 mmol/L 98-107 Carbon dioxide 26 mmol/L 21-32 Serum or plasma anion gap determination (moles/volume) 10 mmol/L 5-14 Serum or plasma urea nitrogen measurement (mass/volume) 8 mg/dL 7-18 Serum or plasma creatinine measurement (mass/volume) 0.71 mg/dL 0.60-1.30 Serum or plasma urea nitrogen/creatinine mass ratio 11 NRG Serum or plasma creatinine measurement with calculation of estimated glomerular filtration rate > NRG Serum or plasma glucose measurement (mass/volume) 90 mg/dL 70-105 Serum or plasma calcium measurement (mass/volume) 8.7 mg/dL 8.5-10.1 Serum or plasma total bilirubin measurement (mass/volume) 0.3 mg/dL 0.1-1.0 Serum or plasma alkaline phosphatase measurement (enzymatic activity/volume) 120 U/L 40-136 Serum or plasma aspartate aminotransferase measurement (enzymatic activity/ volume) 11 U/L 5-34 Serum or plasma alanine aminotransferase measurement (enzymatic activity/volume ) 11 U/L 0-55 Serum or plasma protein measurement (mass/volume) 6.4 g/dL 6.4-8.2 Serum or plasma albumin measurement (mass/volume) 3.7 g/dL 3.2-4.5 Magnesium - 06/01/17 16:15 Magnesium 1.8 mg/dL 1.8-2.4 Serum or plasma creatine kinase measurement (enzymatic activity/volume) - 06/01 16:15 Serum or plasma creatine kinase measurement (enzymatic activity/volume) 23 U/L 29-168 Serum or plasma creatine kinase MB measurement (enzymatic activity/volume) - 16:15 Serum or plasma creatine kinase MB measurement (enzymatic activity/volume) 0.6 ng/mL <6.6 Serum or plasma troponin i.cardiac measurement (mass/volume) - 06/01/17 16:15 Serum or plasma troponin i.cardiac measurement (mass/volume) < ng/ mL <0.30 Serum or plasma amylase measurement (enzymatic activity/volume) - 06/01/17 16: 15 Serum or plasma amylase measurement (enzymatic activity/volume) 27 U /L 25-125 Serum or plasma lithium measurement (moles/volume) - 06/01/17 16:15 BNP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
--- NOTE | 2018-11-11 16:49 | ED Back Pain ---
General Chief Complaint: Back Problems Stated Complaint: BACK PAIN Nursing Triage Note: Pt ambulatory to rm 6. Pt reports having a lipoma removed on October 27, and reports it feels as if something is pulling. Pt reports R sided pain that radiates down the back of the R leg. Pt also reported hx of chronic back problems and c/o urinary and bowel incontinence. Pt reports previous physical therapy that caused the pt to be unable to walk. Pt denies injury. Pt's O2 sat was 84% on room air upon arrival to rm 6. Pt reports wearing O2 at home, but was not wearing O2 at ED. Pt placed on 2 L NC and O2 sat was 94%. Nursing Sepsis Screen: No Definite Risk Source of Information: Patient, Family Exam Limitations: No Limitations History of Present Illness Date Seen by Provider: Nov 11, 2018 Time Seen by Provider: 16:11 Initial Comments The patient presents to ER by private conveyance with her significant other with chief complaint of back pain right more than left radiating down her buttock to her knee. She is not having any urinary hesitancy. She does have some stress incontinence but that's not new. She has had some bowel incontinence for the past several years ever since she had a lumbar spinal fusion. That also was not new. She's not having any numbness. She describes pain as sharp and stabbing. Nothing going on for the past couple weeks. She has been using the Percocet and tizanidine provided by her primary care doctor with minimal relief. She also has a back brace but she's not using it. She's been using heat with modest relief. She uses modest ibuprofen but she has a history of bad gastritis so she has to be careful with NSAIDs. She has not had her back injected for a couple years. She did have a spinal epidural injections in the past with mixed results. She nor her follows with her back surgeon nor does she follow with pain management. She does not follow with a chiropractor and thinks that physical therapy has made her pain worse in the past. Allergies and Home Medications Allergies Coded Allergies: acetaminophen (Verified Allergy, Unknown, 06/09/14) erythromycin base (Verified Allergy, Unknown, PT CAN TAKE AZITHROMYCIN, ) minocycline (Verified Adverse Reaction, Mild, N/V, 06/09/14) Home Medications Atorvastatin Calcium 20 Mg Tablet, 20 MG PO DAILY, (Reported) LAST FILLED #30 4-19-17 Carvedilol 3.125 Mg Tablet, 3.125 MG PO BID, (Reported) LAST FILLED #60 01-08-17 Furosemide 40 Mg Tablet, 40 MG PO q48 HRS Prescribed by: BEV BAIN on 06/03/17 1414 Potassium Chloride 20 Meq Tab.er.prt, 20 MEQ PO Q48H Prescribed by: BEV BAIN on 06/03/17 1414 Patient Home Medication List Home Medication List Reviewed: Yes Review of Systems Constitutional: No chills, No diaphoresis EENTM: No ear discharge, No hearing loss, No ear pain Respiratory: No cough, No short of breath Gastrointestinal: No abdominal pain, No nausea Genitourinary: No discharge, No dysuria Musculoskeletal: see HPI, back pain; No joint pain Past Oqadkic-Vigowv-Jhrief Hx Patient Social History Alcohol Use: Denies Use Recreational Drug Use: No Type Used: Cigarettes 2nd Hand Smoke Exposure: Yes Recent Foreign Travel: No Contact w/Someone Who Travel: No Recent Infectious Disease Expo: No Recent Hopitalizations: No Physical Abuse: No Sexual Abuse: No Immunizations Up To Date Tetanus Booster (TDap): Less than 5yrs Date of Pneumonia Vaccine: Jun 22, 2016 Date of Influenza Vaccine: Jun 22, 2016 Seasonal Allergies Seasonal Allergies: No Past Medical History Surgeries: Yes Appendectomy, Gallbladder, Orthopedic, Tonsillectomy Respiratory: Yes (sarcoidosis) Sleep Apnea, COPD Currently Using CPAP: No Currently Using BIPAP: No Cardiac: Yes (CHF;PULMONARY HTN) Chronic Edema/Swelling, High Cholesterol Neurological: Yes Headaches /Migraines, Neuropathy Reproductive Disorders: No Female Reproductive Disorders: Menstrual Problems, Ovarian Cyst Sexually Transmitted Disease: No HIV/AIDS: No Genitourinary: Yes Renal Failure, UTI-Chronic Gastrointestinal: Yes (FATTY LIVER DISEASE) Gastroesophageal Reflux, Liver Disease/Jaundice, Gastrointestinal Bleed, Esophagitis, Hiatal Hernia Musculoskeletal: Yes ( RESTLESS LEG SYNDROME) Arthritis, Fibromyalgia, Chronic Back Pain Endocrine: Yes (MORBID OBESITY) Hypothyroidsim, Diabetes, Non-Insulin dep HEENT: Yes ("VOCAL CORD DYSFUNCTION" ) Dysphagia Cancer: No Psychosocial: Yes (NARCOTIC OVERDOSE 12/2012) Anxiety, Depression Integumentary: Yes (CHRONIC LEFT LEG CELLULITIS) Recent Skin Changes Blood Disorders: No Adverse Reaction/Blood Tranf: No Family Medical History Family history: Hypertension 09 SISTER (43 ) Family history: Thyroid disorder 03 MOTHER (41 ) Stroke 03 FATHER (47 ) Heart Disease, Hypertension Physical Exam Vital Signs Vital Signs - First Documented 11/11/18 16:29 Temp 98.5 Pulse 79 Resp 23 B/P (MAP) 122/77 (92) Pulse Ox 84 O2 Delivery Room Air Capillary Refill : Less Than 3 Seconds Height, Weight, BMI Height: 5'6.00" Weight: 310lbs. 8.0oz. 140.336262oz; 48.4 BMI Method:Stated General Appearance: Mild Distress, Obese HEENT: PERRL/EOMI, Pharynx Normal, Moist Mucous Membranes Cardiovascular: Regular Rate, Rhythm, Normal Peripheral Pulses Respiratory: Normal Breath Sounds, No Accessory Muscle Use, No Respiratory Distress Peripheral Pulses: 2+ Dorsalis Pedis (R), 2+ Left Dors-Pedis (L) Gastrointestinal: Non Tender, Soft Back: Normal Inspection, No CVA Tenderness; No Decreased Range of Motion; Vertebral Tenderness (midline lumbar and right paraspinous lumbar muscles. She also has tenderness over her L5-S1 facet joint.) Extremity: Normal Capillary Refill, Non Tender, No Calf Tenderness; No No Pedal Edema Neurologic/Psychiatric: Alert, Oriented x3, No Motor/Sensory Deficits ( bilateral lower extremity some), Other (walked in under her own power with a mildly antalgic gait) Skin: Normal Color, Warm/Dry Procedures/Interventions Suture Size: 5-0 Progress We clean the site using Betadine prep and alcohol and then using sterile gloves and sterile drapes we ascertain the appropriate surgeon site for a L5-S1 facet joint arthropathy injection. Using a mixture of 1 cc or 80 mg of Depo-Medrol with 3 cc of 1% lidocaine with epinephrine and 4 cc of 0.5% bupivacaine without epinephrine we introduced the mixture into the right L5-S1 facet joint using a 4 inch 25-gauge spinal needle. Patient tolerated procedure well. Progress/Results/Core Measures Results/Orders My Orders Orders - KRISTEN JACKSON Methylprednisolone Acetate Inj (Depo-Med (11/11/18 16:30) Lidocaine/Epi 2% 1:100,000 (Xylocaine/Ep (11/11/18 16:30) Bupivacaine 0.5% Injection (Sensorcaine (11/11/18 16:30) Vital Signs/I&O 11/11/18 16:29 Temp 98.5 Pulse 79 Resp 23 B/P (MAP) 122/77 (92) Pulse Ox 84 O2 Delivery Room Air Blood Pressure Mean: 92 Progress Progress Note : Time: 16:47 Progress Note She is not diabetic so wouldn't inject her back with Depo-Medrol, bupivacaine and lidocaine into the L5-S1 facet joint and have her follow-up with primary care. She's not having any new red flag signs for the past several years. May 2018 she had a chest and abdomen CT did not show any interesting bony changes. 2011 she had an MRI of the spine, lumbar showing the hardware in good position. Laminectomy at L5 and L4. No spinal canal stenosis seen at that point. There is cauda equina at the level of L2. No significant disc bulge or protrusion noted. Mild diffuse disc bulging at the L5-S1 level with no significant spinal canal stenosis however there is moderate bilateral neural foraminal narrowing at the L5-S1 present. Departure Impression Primary Impression: Lumbago of lumbar region with sciatica Disposition: HOME, SELF-CARE Condition: Stable Departure-Patient Inst. Decision time for Depature: 17:34 Referrals: [facility] (PCP/Family) Primary Care Physician Patient Instructions: Low Back Pain (DC) Add. Discharge Instructions: Wear your back brace on the days that it helps. Use heat applied your back as necessary. Use the ibuprofen per your doctor's orders. Use Tylenol 1000 g every 8 hours. Use the Percocet as prescribed. Use tizanidine for muscle spasms in the back. He can consider seeing a chiropractor or have some deep tissue massage done. You can use a Salon Pas patches or other creams such as Bio freeze, icy hot etc. Go home get some sleep tonight. If you're not seeing some relief over the next 7 -10 days and follow-up with your primary care doctor for reexamination and consideration of further pain management techniques or referral. All discharge instructions reviewed with patient and/or family. Voiced understanding. KRISTEN JACKSON Nov 11, 2018 16:49
[2018-11-11 17:45] VITALS: BP 123/62
== END 2018-11-11 17:43 | disposition home or self-care (01) ==
LOC: EDUNIT# 16:01 → ER 16:06
DX: M54.42 Lumbago with sciatica, left side (principal); G47.30 Sleep apnea, unspecified; J44.9 Chronic obstructive pulmonary disease, unspecified; I27.0 Primary pulmonary hypertension; G43.909 Migraine, unspecified, not intractable, without status migrainosus; E11.40 Type 2 diabetes mellitus with diabetic neuropathy, unspecified; K21.9 Gastro-esophageal reflux disease without esophagitis; E66.01 Morbid (severe) obesity due to excess calories; F41.9 Anxiety disorder, unspecified; F32.9 Major depressive disorder, single episode, unspecified; I50.9 Heart failure, unspecified; E78.00 Pure hypercholesterolemia, unspecified; Z77.22 Contact with and (suspected) exposure to environmental tobacco smoke (acute) (chronic); Z87.19 Personal history of other diseases of the digestive system; Z90.49 Acquired absence of other specified parts of digestive tract; Z82.49 Family history of ischemic heart disease and other diseases of the circulatory system; Z68.42 Body mass index [BMI] 45.0-49.9, adult; Z87.440 Personal history of urinary (tract) infections; Z90.89 Acquired absence of other organs; Z98.890 Other specified postprocedural states
CPT/HCPCS: 99284

== ENCOUNTER → 2018-12-30 | Outpatient (CLI) | payer MEDICARE, MEDICAID ==
--- NOTE | 2018-12-30 14:19 | Diagnostic Imaging Report ---
PROCEDURE: CT chest without contrast. TECHNIQUE: Multiple contiguous axial images were obtained through the chest without the use of intravenous contrast. Auto Exposure Controls were utilized during the CT exam to meet ALARA standards for radiation dose reduction. INDICATION: Sarcoidosis, lung nodule. COMPARISON: Study compared 06/17/2018. FINDINGS: Heterogeneous air trapping and mosaic and groundglass density of the bilateral upper lobes unchanged from prior. There is no evidence for acute pneumonia. Few lower right paratracheal mediastinal nodes and left para-aortic mediastinal nodes are all unchanged and, while nonspecific, their stability and the history suggests they are likely related to the documented sarcoidosis in this patient. There is no pleural effusion or pneumothorax. No change in the lungs with few minute subcentimeter subpleural nodular foci, chronic and benign. No suspicious mass. The upper abdomen revealed a nonfocal normal size spleen with no acute abnormality. IMPRESSION: Chronic lung disease greatest in the upper lobe stable with stable adenopathy, likely findings owing to the reported history of sarcoidosis. Few minute subpleural scars in the lungs with no suspicious mass. No effusion or pneumothorax. No acute finding. No change. Dictated by: Dictated on workstation # [id number]
== END ==
LOC: RAD 11:48
PROVIDERS: ATTEND Nurse Practitioner Family
DX: J45.909 Unspecified asthma, uncomplicated (principal); R91.1 Solitary pulmonary nodule; J98.4 Other disorders of lung; D86.9 Sarcoidosis, unspecified; R59.0 Localized enlarged lymph nodes
CPT/HCPCS: 71250

== ENCOUNTER → 2019-09-17 | Outpatient (CLI) | payer MEDICARE, MEDICAID ==
--- NOTE | 2019-09-17 14:22 | Diagnostic Imaging Report ---
INDICATION: Lump in the medial left breast. COMPARISON: No prior studies are available for comparison. TECHNIQUE: 2-D and 3-D bilateral diagnostic mammography was performed. The current study was also evaluated with a Computer Aided Detection (CAD) system. 3-D tomosynthesis was also performed and reviewed. FINDINGS: Scattered fibroglandular densities are identified bilaterally. A BB marker was placed at the area of palpable abnormality in the medial left breast. No underlying mass is seen. No malignant-appearing microcalcifications are seen. Axillae are unremarkable. IMPRESSION: No mammographic features suspicious for malignancy are identified. Even so, directed sonographic interrogation of the area of palpable abnormality in the medial left breast is recommended and will be performed today. ACR BI-RADS Category 0: Incomplete. (Needs additional imaging evaluation). Result letter will be mailed to the patient. Note: At least 10% of breast cancer is not imaged by mammography. Dictated by: Dictated on workstation # [id number]
--- NOTE | 2019-09-17 14:27 | Diagnostic Imaging Report ---
INDICATION: Palpable lump in the medial left breast. FINDINGS: Sonographic interrogation of the medial left breast at the area of palpable abnormality was performed. No sonographic abnormality is seen. No solid or cystic mass is detected. IMPRESSION: No sonographic abnormality is identified. ACR BI-RADS Category 1: Negative. Dictated by: Dictated on workstation # [id number]
== END ==
LOC: RAD 12:29
PROVIDERS: ATTEND Nurse Practitioner Primary Care
DX: N63.20 Unspecified lump in the left breast, unspecified quadrant (principal)
CPT/HCPCS: 76642; 77066

== ENCOUNTER 2019-09-22 21:45 | Emergency (ER) | payer MEDICARE, MEDICAID ==
[~2019-09-22] VITALS: Ht 167.7 cm; Wt 141.8 kg
[2019-09-22] MEDS ORDERED: RT-ALBUTEROL/IPRATROPIUM 3 ML (DUONEB) VIAL ONE (21:58)
[2019-09-22] MEDS ORDERED: ASPIRIN 81 MG CHEW (CHILDREN'S ASA) PO ONE (22:00)
--- NOTE | 2019-09-22 22:11 | ED Chest Pain ---
General Stated Complaint: CHEST PAIN Source: patient, spouse Exam Limitations: no limitations History of Present Illness Date Seen by Provider: Sep 22, 2019 Time Seen by Provider: 21:45 Initial Comments Patient presents to ER by private conveyance from home with her significant other and chief complaint that for the past day she been having some shortness o f breath, cough, no fever or chills and then 2-3 days ago she began to have pain in the center of her chest. Not reproduced by direct palpation or cough. She has a history of heart disease, congestive heart failure known to Dr. Garcia and Eliecer Gutierrez. She is not diabetic. She smokes about a 6 pack of cigarettes per day. She has COPD. She has not been on steroids recently. She has high blood pressure and high cholesterol. She is on Coreg and occasionally Lasix. Nursing reports her O2 sats were in the 70s on room air on ambulate into the room. OSH, LOLI, COPD, echocardiogram from 2017 demonstrating an EF of 60-65%. Cardiac catheterization from 2013 demonstrating angiographically normal coronary arteries with an EF of 60% and no significant mitral regurgitation. History of GERD with GI bleed. Chronic anemia. Allergies and Home Medications Allergies Coded Allergies: acetaminophen (Verified Allergy, Unknown, 06/09/14) erythromycin base (Verified Allergy, Unknown, PT CAN TAKE AZITHROMYCIN, 06/09/14) minocycline (Verified Adverse Reaction, Mild, N/V, 06/09/14) Home Medications Atorvastatin Calcium 20 Mg Tablet, 20 MG PO DAILY, (Reported) LAST FILLED #30 01-08-17 Carvedilol 3.125 Mg Tablet, 3.125 MG PO BID, (Reported) LAST FILLED #60 01-08-17 Furosemide 40 Mg Tablet, 40 MG PO q48 HRS Prescribed by: BEV BAIN on 06/03/171413 Potassium Chloride 20 Meq Tab.er.prt, 20 MEQ PO Q48H Prescribed by: BEV BAIN on 06/03/17 141 Patient Home Medication List Home Medication List Reviewed: Yes Review of Systems Review of Systems Constitutional: No chills, No diaphoresis; dizziness; No fever; malaise, weakness EENTM: No Blurred Vision, No Double Vision Respiratory: Cough, Shortness of Air Cardiovascular: See HPI, Chest Pain; Denies Edema, Denies Irregular Heart Rate; Lightheadedness; Denies Palpitations, Denies Syncope Gastrointestinal: Denies Abdominal Pain, Denies Constipated, Denies Diarrhea, Denies Nausea Genitourinary: Denies Burning, Denies Discharge Musculoskeletal: No back pain, No joint pain Skin: No pruritus, No rash Psychiatric/Neurological: Denies Headache, Denies Numbness All Other Systems Reviewed Negative Unless Noted: Yes Past Gwfrwtu-Sogsop-Ctfzoa Hx Patient Social History Alcohol Use: Denies Use Recreational Drug Use: No Smoking Status: Current Everyday Smoker Type Used: Cigarettes (1 ppd) 2nd Hand Smoke Exposure: Yes Recent Hopitalizations: No Immunizations Up To Date Tetanus Booster (TDap): Less than 5yrs Date of Pneumonia Vaccine: Jun 22, 2016 Date of Influenza Vaccine: Jun 22, 2016 Seasonal Allergies Seasonal Allergies: No Past Medical History Surgeries: Yes Appendectomy, Gallbladder, Orthopedic, Tonsillectomy Respiratory: Yes (sarcoidosis) Sleep Apnea, COPD Currently Using CPAP: No Currently Using BIPAP: No Cardiac: Yes (CHF;PULMONARY HTN) Chronic Edema/Swelling, High Cholesterol Neurological: Yes Headaches /Migraines, Neuropathy Reproductive Disorders: No Female Reproductive Disorders: Menstrual Problems, Ovarian Cyst Sexually Transmitted Disease: No HIV/AIDS: No Genitourinary: Yes Renal Failure, UTI-Chronic Gastrointestinal: Yes (FATTY LIVER DISEASE) Gastroesophageal Reflux, Liver Disease/Jaundice, Gastrointestinal Bleed, Esophagitis, Hiatal Hernia Musculoskeletal: Yes ( RESTLESS LEG SYNDROME) Arthritis, Fibromyalgia, Chronic Back Pain Endocrine: Yes (MORBID OBESITY) Hypothyroidsim, Diabetes, Non-Insulin dep HEENT: Yes ("VOCAL CORD DYSFUNCTION" ) Dysphagia Cancer: No Psychosocial: Yes (NARCOTIC OVERDOSE 12/2012) Anxiety, Depression Integumentary: Yes (CHRONIC LEFT LEG CELLULITIS) Recent Skin Changes Blood Disorders: No Adverse Reaction/Blood Tranf: No Family Medical History Family history: Hypertension 09 SISTER (43 ) Family history: Thyroid disorder 03 MOTHER (41 ) Stroke 03 FATHER (47 ) Heart Disease, Hypertension Physical Exam Vital Signs Vital Signs - First Documented Capillary Refill : Height, Weight, BMI Height: 5'6.00" Weight: 310lbs. 8.0oz. [id number]; 48.4 BMI Method:Stated General Appearance: Mild Distress, Obese HEENT: TMs Normal, Normal ENT Inspection, Pharynx Normal; No Moist Mucous Membranes Neck: Full Range of Motion, Normal Inspection, Non Tender, Supple Respiratory: No Accessory Muscle Use, Decreased Breath Sounds, Respiratory Distress (mild to moderate) Cardiovascular: Regular Rate, Rhythm, No Edema, Normal Peripheral Pulses Gastrointestinal: Normal Bowel Sounds, Non Tender, Soft Extremity: Normal Capillary Refill, Normal Inspection, No Pedal Edema Neurologic/Psychiatric: Alert, Oriented x3 Skin: Normal Color, Warm/Dry Procedures/Interventions Suture Size: 5-0 Progress/Results/Core Measures Results/Orders Lab Results Laboratory Tests Test 09/22/19 21:59 09/22/19 22:15 Range/Units White Blood Count 13.2 H 4.3-11.0 10^3/uL Red Blood Count 4.53 4.35-5.85 10^6/uL Hemoglobin 10.8 L 11.5-16.0 G/DL Hematocrit 38 35-52 % Mean Corpuscular Volume 83 80-99 FL Mean Corpuscular Hemoglobin 24 L 25-34 PG Mean Corpuscular Hemoglobin Concent 29 L 32-36 G/DL Red Cell Distribution Width 19.0 H 10.0-14.5 % Platelet Count 392 130-400 10^3/uL Mean Platelet Volume 10.0 7.4-10.4 FL Neutrophils (%) (Auto) 79 H 42-75 % Lymphocytes (%) (Auto) 14 12-44 % Monocytes (%) (Auto) 5 0-12 % Eosinophils (%) (Auto) 2 0-10 % Basophils (%) (Auto) 0 0-10 % Neutrophils # (Auto) 10.4 H 1.8-7.8 X 10^3 Lymphocytes # (Auto) 1.8 1.0-4.0 X 10^3 Monocytes # (Auto) 0.7 0.0-1.0 X 10^3 Eosinophils # (Auto) 0.2 0.0-0.3 10^3/uL Basophils # (Auto) 0.1 0.0-0.1 10^3/uL Prothrombin Time 12.9 12.2-14.7 SEC INR Comment 0.9 0.8-1.4 Activated Partial Thromboplast Time 34 24-35 SEC D-Dimer 0.55 H 0.00-0.49 UG/ML Sodium Level 139 135-145 MMOL/L Potassium Level 3.6 3.6-5.0 MMOL/L Chloride Level 100 98-107 MMOL/L Carbon Dioxide Level 24 21-32 MMOL/L Anion Gap 15 H 5-14 MMOL/L Blood Urea Nitrogen 9 7-18 MG/DL Creatinine 0.77 0.60-1.30 MG/DL Estimat Glomerular Filtration Rate > 60 BUN/Creatinine Ratio 12 Glucose Level 97 70-105 MG/DL Calcium Level 9.3 8.5-10.1 MG/DL Corrected Calcium 9.1 8.5-10.1 MG/DL Magnesium Level 1.8 1.6-2.4 MG/DL Total Bilirubin 0.2 0.1-1.0 MG/DL Aspartate Amino Transf (AST/SGOT) 18 5-34 U/L Alanine Aminotransferase (ALT/SGPT) 21 0-55 U/L Alkaline Phosphatase 196 H 40-136 U/L Myoglobin 32.6 10.0-92.0 NG/ML Troponin I < 0.028 <0.028 NG/ML B-Type Natriuretic Peptide 248.5 H <100.0 PG/ML Total Protein 7.4 6.4-8.2 GM/DL Albumin 4.2 3.2-4.5 GM/DL Blood Gas Puncture Site RRAD Blood Gas Patient Temperature 37.3 Arterial Blood pH 7.41 7.37-7.43 Arterial Blood Partial Pressure CO2 47 H 35-45 MMHG Arterial Blood Partial Pressure O2 117 H 79-93 MMHG Arterial Blood HCO3 29 H 23-27 MMOL/L Arterial Blood Total CO2 30.5 21.0-31.0 MMOL/L Arterial Blood Oxygen Saturation 99 94-100 % Arterial Blood Base Excess 4.8 H -2.5-2.5 MMOL/L [place] Test YES-POS Blood Gas Ventilator Setting NO Blood Gas Inspired Oxygen 6L Micro Results Microbiology 09/22/19 Influenza Types A,B Antigen (RADHIKA) - Final, Complete My Orders Orders - KRISTEN JACKSON Continuous Ekg Monitoring (09/22/19 21:54) Ekg Tracing (09/22/19 21:54) Albuterol/Ipra Inhalation Soln (Duoneb I (09/22/19 21:58) Cbc With Automated Diff (09/22/19 22:00) Magnesium (09/22/19 22:00) Chest 1 View, Ap/Pa Only (09/22/19 22:00) Comprehensive Metabolic Panel (09/22/19 22:00) Myoglobin Serum (09/22/19 22:00) Protime With Inr (09/22/19 22:00) Partial Thromboplastin Time (09/22/19 22:00) O2 (09/22/19 22:00) Lipid Panel (09/23/19 06:00) Ed Iv/Invasive Line Start (09/22/19 22:00) BNP (09/22/19 22:00) Fibrin Degradation Products (09/22/19 22:00) Troponin I (09/22/19 22:00) Nitroglycerin 0.4 Mg Btl 25's (Nitrostat (09/22/19 22:00) Aspirin Chewable Tablet (Baby Aspirin Ch (09/22/19 22:00) Influenza A And B Antigens (09/22/19 22:00) Arterial Blood Gas (09/22/19 22:19) Ct Angio Chest W (09/22/19 22:37) Ed Iv/Invasive Line Start (09/22/19 22:37) Ns Iv 1000 Ml (Sodium Chloride 0.9%) (09/22/19 22:37) Ed Iv/Invasive Line Start (09/22/19 22:58) Ns Iv 1000 Ml (Sodium Chloride 0.9%) (09/22/19 22:58) Medications Given in ED Current Medications Medications Dose Ordered Sig/Simon Route Start Time Stop Time Status Last Admin Dose Admin Albuterol/ Ipratropium 3 ml STK-MED ONCE .ROUTE 09/22/19 21:58 09/22/19 22:01 DC 09/22/19 22:10 3 ML Aspirin 324 mg ONCE ONCE PO 09/22/19 22:00 09/22/19 22:04 DC 09/22/19 22:11 324 MG Nitroglycerin 0.4 mg UD PRN SL 09/22/19 22:00 09/22/19 22:23 DC 09/22/19 22:23 0.4 MG Vital Signs/I&O 09/22/19 09/22/19 09/22/19 09/22/19 21:48 21:48 21:48 21:55 Temp 37.3 Pulse 88 Resp 15 B/P (MAP) 133/80 (97) Pulse Ox 100 100 98 O2 Delivery OxyMask OxyMask OxyMask OxyMask O2 Flow Rate 10.00 10.0 6.00 09/22/19 09/22/19 22:15 22:21 Pulse Ox 94 100 O2 Delivery Nasal Cannula Nasal Cannula O2 Flow Rate 2.00 3.00 Progress Progress Note #1: Time: 22:10 Progress Note The absence of tachycardia is likely due to her beta blockers. I would suspect pneumonia, pulmonary embolism and coronary disease are also likely causes of her chest pain is nonreproducible to direct palpation. Progress Note #2: Time: 00:49 Progress Note Patient was requiring oxygen to keep her sats up to simple mask on arrival. She was in the 70s when she walked in. She has made it clear she does not want to stay in the hospital. We have cleaned her oxygen down to 0 and she is staying at 90-94% with a heart rate in the 70s. She did not seem to think she had much benefit from the breathing treatment. We can let her go and follow-up with primary care. Put her on Omnicef and azithromycin. We have encouraged her to stay for oxygenation, and IV antibiotics however she has declined. Initial ECG Impression Date: Sep 22, 2019 Initial ECG Impression Time: 21:52 Initial ECG Rate: 77 Initial ECG Rhythm: Normal Sinus Initial ECG Intervals: QT (471) Initial ECG Impression: Normal, Nonspecific Changes Comment Normal sinus rhythm without clinically ST elevation or depression. Diagnostic Imaging Diagonstic Imaging: Xray Plain Films/CT/US/NM/MRI: chest (1v) Comments Possible right lower lobe opacity consistent with infiltrate Reviewed: Reviewed by Me Diagonstic Imaging: CT (angiogram) Plain Films/CT/US/NM/MRI: chest Comments No evidence of pulmonary embolism. Possible right heart failure. Small pericardial effusion. Reviewed: Reviewed Night [facility] Study, Reviewed by Me Consults : Consulting Physician: Ani HERNANDEZ MD Consults Notes 0020: Dr. Hernandez and this examiner reviewed EKG labs imaging presentation and history of cardiac catheterization. Departure Impression Primary Impression: Right lower lobe pneumonia Qualified Codes: J18.1 - Lobar pneumonia, unspecified organism Additional Impression: Hypoxia Disposition: 01 HOME, SELF-CARE Condition: Stable Departure-Patient Inst. Decision time for Depature: 00:55 Referrals: [facility] (PCP/Family) Primary Care Physician Patient Instructions: Chest Pain That Is Not Caused by the Heart (DC), Pneumonia, Adult (DC) Add. Discharge Instructions: Drink plenty of fluids. Follow-up with your primary care doctor or early childhood services coordinator next week. Levaquin 500 mg capsule daily for the next 5 days. Omnicef one capsule twice a day for the next 10 days. If you become short of breath or have worsening symptoms then please return to the nearest ER. Scripts Levofloxacin (Levaquin) 500 Mg Tablet 500 MG PO DAILY for 5 Days, #5 TAB 0 Refills Prov: KRISTEN JACKSON 09/23/19 Cefdinir (Cefdinir) 300 Mg Capsule 300 MG PO BID for 10 Days, #20 CAP 0 Refills Prov: KRISTEN JACKSON 09/23/19 KRISTEN JACKSON Sep 22, 2019 22:11
[2019-09-22] MEDS: NITROGLYCERIN 0.4 MG SL TABS BTL 25'S SL PRN ×3 (22:12→22:23)
[2019-09-22 22:14] LABS: BASOPHILS # (AUTO) 0.1 10^3/uL (0.0-0.1); BASOPHILS % (AUTO) 0 % (0-10); EOSINOPHILS # (AUTO) 0.2 10^3/uL (0.0-0.3); EOSINOPHILS % (AUTO) 2 % (0-10); HEMATOCRIT 38 % (35-52); HEMOGLOBIN 10.8 G/DL (11.5-16.0); LYMPHOCYTES # (AUTO) 1.8 X 10^3 (1.0-4.0); LYMPHOCYTES % (AUTO) 14 % (12-44); MEAN CORPUSCULAR HEMOGLOBIN 24 PG (25-34); MEAN CORPUSCULAR HGB CONC 29 G/DL (32-36); MEAN CORPUSCULAR VOLUME 83 FL (80-99); MONOCYTES # (AUTO) 0.7 X 10^3 (0.0-1.0); MONOCYTES % (AUTO) 5 % (0-12); NEUTROPHILS # (AUTO) 10.4 X 10^3 (1.8-7.8); NEUTROPHILS % (AUTO) 79 % (42-75); PLATELET COUNT 392 10^3/uL (130-400); WHITE BLOOD COUNT 13.2 10^3/uL (4.3-11.0)
--- NOTE | 2019-09-22 22:23 | NUR ---
Nitro #1 adm @ 2212 BP 127/71 Pain 01/29 @2217 BP 123/82 Pain 11/29 Nitro #2 adm. @2 BP 141/92 Pain 0 Nitro #3 adm. @2226 BP 117/79 Pain 0. Provider notified.
[2019-09-22 22:25] LABS: INR 0.9 (0.8-1.4); PROTHROMBIN TIME PATIENT 12.9 SEC (12.2-14.7)
[2019-09-22 22:25] LABS: ABG BASE EXCESS 4.8 MMOL/L (-2.5-2.5); ABG OXYGEN SATURATION 99 % (94-100); ABG PCO2 47 MMHG (35-45); ABG PH 7.41 (7.37-7.43); ABG PO2 117 MMHG (79-93); ABG TCO2 30.5 MMOL/L (21.0-31.0)
[2019-09-22 22:26] LABS: ALLENS TEST YES-POS; INSPIRED O2 6L; PATIENT TEMP 37.3; VENTILATOR NO
[2019-09-22] MEDS ORDERED: NS IV 1000 ML 1,000 ML IV SCH ×2 (22:37→22:58)
[2019-09-22 22:38] LABS: ALANINE AMINOTRANSFERASE 21 U/L (0-55); ALBUMIN 4.2 GM/DL (3.2-4.5); ALKALINE PHOSPHATASE 196 U/L (40-136); BILIRUBIN,TOTAL 0.2 MG/DL (0.1-1.0); BUN/CREATININE RATIO 12; CALCIUM 9.3 MG/DL (8.5-10.1); CARBON DIOXIDE 24 MMOL/L (21-32); CHLORIDE 100 MMOL/L (98-107); CREATININE SERUM 0.77 MG/DL (0.60-1.30); GFR ESTIMATED > 60; GLUCOSE 97 MG/DL (70-105); MAGNESIUM 1.8 MG/DL (1.6-2.4); POTASSIUM 3.6 MMOL/L (3.6-5.0); SODIUM 139 MMOL/L (135-145); TOTAL PROTEIN 7.4 GM/DL (6.4-8.2)
[2019-09-23] MEDS ORDERED: DOXY100T2 PO (00:57)
[2019-09-23] MEDS ORDERED: CEFD300C3 PO (00:57)
[2019-09-23] MEDS ORDERED: LEVO500T2 PO (00:58)
[2019-09-23 01:07] VITALS: BP 132/88
[2019-09-23] MEDS ORDERED: IOHEXOL 350 MG/ML 150 ML (OMNIPAQUE 350) VIAL IV ONE (01:30)
[2019-09-23] MEDS ORDERED: NS 100 ML (IVPB) BAG IV ONE (01:30)
--- NOTE | 2019-09-23 05:32 | Diagnostic Imaging Report ---
INDICATION: Chest pain. COMPARISON: 06/02/2017 FINDINGS: Single frontal radiographic view of the chest was obtained and demonstrates moderate to marked cardiomegaly with mild pulmonary vascular congestion. Pulmonary interstitium is slightly prominent. There is no large effusion or pneumothorax on either side. Osseous structures show no gross acute abnormalities. IMPRESSION: 1. Significant cardiomegaly with pulmonary vascular congestion and probable early or mild interstitial pulmonary edema. Dictated by: Dictated on workstation # [id number]
--- NOTE | 2019-09-23 06:58 | Diagnostic Imaging Report ---
PROCEDURE: CT angiography of the chest with contrast. TECHNIQUE: Multiple contiguous axial images were obtained through the chest after uneventful bolus administration of intravenous contrast. 3D reconstructed CTA MIP acquisitions were also performed. Auto Exposure Controls were utilized during the CT exam to meet ALARA standards for radiation dose reduction. INDICATION: Chest pain. Concern for pulmonary embolism. COMPARISONS: Chest CT performed on 12/30/2018. FINDINGS: CT ANGIOGRAM: No pulmonary embolism. The main pulmonary artery is enlarged, measuring up to 4.1 cm in diameter. No acute aortic abnormality seen on this study performed without cardiac gating. TRACHEA AND MAIN BRONCHI: Patent without evidence of tracheal or endobronchial lesion. LUNGS AND PLEURA: Scattered groundglass opacities and mosaic attenuation pattern of the lung parenchyma is again demonstrated, similar appearance to prior exam. No focal consolidation or pulmonary mass is appreciated. No pleural effusion or pneumothorax. MEDIASTINUM AND THANG: Visualized thyroid gland is unremarkable. Scattered prominent mediastinal lymph nodes are similar in appearance to prior exam. The largest is a right paratracheal lymph node which measures 1.5 cm in short axis diameter, unchanged from prior exam. Esophagus is nondistended. HEART AND VESSELS: Mild cardiomegaly, unchanged. Trace pericardial fluid without perez effusion. Thoracic aorta is nonaneurysmal. DIAPHRAGM AND UPPER ABDOMEN: There is mild reflux of contrast into the IVC. The diaphragm and visualized upper abdomen are otherwise unremarkable. CHEST WALL: Unremarkable as visualized. BONES: Old fracture deformities of the lateral left 5th and 6th ribs. No acute osseous abnormality is appreciated. IMPRESSION: No evidence of pulmonary embolism. The main pulmonary artery is enlarged, measuring up to 4.1 cm in diameter, possibly reflecting pulmonary arterial hypertension. Mosaic attenuation pattern in the lung parenchyma, which is similar in appearance to prior exam. Findings are nonspecific and may reflect air trapping from chronic obstructive small airways disease and/or patient's history of sarcoidosis. Unchanged mediastinal lymphadenopathy, possibly related to patient's history of sarcoidosis. Moderate cardiomegaly and trace pericardial fluid. There is mild reflux of contrast into the IVC, possibly reflecting right heart failure. Findings are in agreement with initial teleradiology report. Dictated by: Dictated on workstation # [id number]
== END 2019-09-23 01:07 | disposition home or self-care (01) ==
LOC: EDUNIT# 21:45 → ER 21:46
DX: J18.9 Pneumonia, unspecified organism (principal); R09.02 Hypoxemia; I50.9 Heart failure, unspecified; J44.9 Chronic obstructive pulmonary disease, unspecified; E11.40 Type 2 diabetes mellitus with diabetic neuropathy, unspecified; E78.00 Pure hypercholesterolemia, unspecified; F41.9 Anxiety disorder, unspecified; F32.9 Major depressive disorder, single episode, unspecified; G43.909 Migraine, unspecified, not intractable, without status migrainosus; K21.9 Gastro-esophageal reflux disease without esophagitis; M79.7 Fibromyalgia; E03.9 Hypothyroidism, unspecified; E66.01 Morbid (severe) obesity due to excess calories; F17.210 Nicotine dependence, cigarettes, uncomplicated; Z88.6 Allergy status to analgesic agent; Z68.43 Body mass index [BMI] 50.0-59.9, adult; Z87.440 Personal history of urinary (tract) infections; Z88.1 Allergy status to other antibiotic agents; Z90.49 Acquired absence of other specified parts of digestive tract; Z90.89 Acquired absence of other organs; Z82.49 Family history of ischemic heart disease and other diseases of the circulatory system
CPT/HCPCS: 36415; 36600; 71045; 71275; 80053; 82805; 83735; 83874; 83880; 84484; 85025; 85379; 85610; 85730; 87804; 93005; 94640; 96360; 96361

== ENCOUNTER 2020-04-08 22:32 | Emergency (ER) | payer MEDICAID, MEDICARE ==
[~2020-04-08] VITALS: Ht 167 cm; Wt 141.8 kg
[~2020-04-08 22:32] MED LIST changes: +CEFD300C3 PO; +DOXY100T2 PO; +LEVO500T2 PO; +ROPI1TAB PO; -ROPI1TAB2 PO
[2020-04-08 22:55] VITALS: BP 134/89
[2020-04-08] MEDS ORDERED: PRD20T PO (23:23)
--- NOTE | 2020-04-08 23:23 | ED General ---
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 Pt denies being in contact with anything, digesting anything new. 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 Nursing Sepsis Screen: No Definite Risk Source of Information: Patient Exam Limitations: No Limitations History of Present Illness Date Seen by Provider: Apr 08, 2020 Time Seen by Provider: 23:12 Initial Comments Here with hives and itching of unknown cause. She had gone to see her son today in [place] and after she got to his house, she noted itching started. Unsure of what she contacted. Denies any new foods, soaps or lotions. He has not had this happen before. Has not taken anything for this. States that she is itching quite a bit and that is her main concern. Denies any new breathing problems (does have chronic lung disease but is not currently on steroids) and has no nausea or vomiting. Timing/Duration: 1-3 Hours Severity: Moderate Associated Systoms: No Cough, No Nausea/Vomiting; Rash; No Shortness of Air, No Weakness Allergies and Home Medications Allergies Coded Allergies: acetaminophen (Verified Allergy, Unknown, 06/09/14) erythromycin base (Verified Allergy, Unknown, PT CAN TAKE AZITHROMYCIN, 06/09/14) minocycline (Verified Adverse Reaction, Mild, N/V, 06/09/14) Home Medications Atorvastatin Calcium 20 Mg Tablet, 20 MG PO DAILY, (Reported) LAST FILLED #30 01-08-17 Carvedilol 3.125 Mg Tablet, 3.125 MG PO BID, (Reported) LAST FILLED #60 01-08-17 Cefdinir 300 Mg Capsule, 300 MG PO BID Prescribed by: KRISTEN JACKSON on 09/23/19 005 Furosemide 40 Mg Tablet, 40 MG PO q48 HRS Prescribed by: BEV BAIN on 06/03/17 141 Levofloxacin 500 Mg Tablet, 500 MG PO DAILY Prescribed by: KRISTEN JACKSON on 09/23/19 0058 Potassium Chloride 20 Meq Tab.er.prt, 20 MEQ PO Q48H Prescribed by: BEV BAIN on 06/03/17 141 Patient Home Medication List Home Medication List Reviewed: Yes Review of Systems Review of Systems Constitutional: No chills, No fever EENTM: no symptoms reported Respiratory: no symptoms reported Cardiovascular: no symptoms reported Skin: see HPI, change in color, lesions, pruritus, rash Past Nfnxtqj-Rpqfru-Ajlgsy Hx Past Med/Social Hx: Reviewed Nursing Past Med/Soc Hx Patient Social History Alcohol Use: Denies Use Recreational Drug Use: No Smoking Status: Current Everyday Smoker Type Used: Cigarettes 2nd Hand Smoke Exposure: Yes Recent Foreign Travel: No Contact w/Someone Who Travel: No Recent Infectious Disease Expo: No Recent Hopitalizations: No Immunizations Up To Date Tetanus Booster (TDap): Less than 5yrs Date of Pneumonia Vaccine: Jun 22, 2016 Date of Influenza Vaccine: Jun 22, 2016 Seasonal Allergies Seasonal Allergies: No Past Medical History Surgeries: Yes Appendectomy, Gallbladder, Orthopedic, Tonsillectomy Respiratory: Yes (sarcoidosis) Sleep Apnea, COPD Currently Using CPAP: No Currently Using BIPAP: No Cardiac: Yes (CHF;PULMONARY HTN) Chronic Edema/Swelling, High Cholesterol Neurological: Yes Headaches /Migraines, Neuropathy Reproductive Disorders: No Female Reproductive Disorders: Menstrual Problems, Ovarian Cyst Sexually Transmitted Disease: No HIV/AIDS: No Genitourinary: Yes Renal Failure, UTI-Chronic Gastrointestinal: Yes (FATTY LIVER DISEASE) Gastroesophageal Reflux, Liver Disease/Jaundice, Gastrointestinal Bleed, Esophagitis, Hiatal Hernia Musculoskeletal: Yes ( RESTLESS LEG SYNDROME) Arthritis, Fibromyalgia, Chronic Back Pain Endocrine: Yes (MORBID OBESITY) Hypothyroidsim, Diabetes, Non-Insulin dep HEENT: Yes ("VOCAL CORD DYSFUNCTION" ) Dysphagia Cancer: No Psychosocial: Yes (NARCOTIC OVERDOSE 12/2012) Anxiety, Depression Integumentary: Yes (CHRONIC LEFT LEG CELLULITIS) Recent Skin Changes Blood Disorders: No Adverse Reaction/Blood Tranf: No Family Medical History Reviewed Nursing Family Hx Family history: Hypertension 09 SISTER (43 ) Family history: Thyroid disorder 03 MOTHER (41 ) Stroke 03 FATHER (47 ) Heart Disease, Hypertension Physical Exam Vital Signs Vital Signs - First Documented 04/08/20 22:55 Temp 37.0 Pulse 94 Resp 22 B/P (MAP) 134/89 (104) Pulse Ox 95 O2 Delivery Room Air Capillary Refill : Less Than 3 Seconds Height, Weight, BMI Height: 5'6.00" Weight: 310lbs. 8.0oz. 140.140854jr; 50.00 BMI Method:Stated General Appearance: WD/WN, Mild Distress, Obese Respiratory: No Accessory Muscle Use, No Respiratory Distress, Rhonci (a few scattered) Cardiovascular: Regular Rate, Rhythm, No Murmur Neurologic/Psychiatric: Alert, Oriented x3 Skin: Warm/Dry, Rash (urticarial lesions noted to hands, at the folds of the legs and arms and scattered on extremities. States that she is itching quite a bit.) Procedures/Interventions Suture Size: 5-0 Progress/Results/Core Measures Suspected Sepsis Recent Fever Within 48 Hours: No Infection Criteria Present: None New/Unexplained Altered Menta: No Sepsis Screen: No Definite Risk SIRS Temperature: Pulse: 94 Respiratory Rate: 22 Blood Pressure 134 /89 Mean: 104 Results/Orders My Orders Orders - YOBANY CLAYTON MD Diphenhydramine Injection (Benadryl Inje (04/08/20 23:30) Prednisone Tablet (Deltasone Tablet) (04/08/20 23:30) Famotidine Tablet (Pepcid Tablet) (04/08/20 23:30) Vital Signs/I&O 04/08/20 22:55 Temp 37.0 Pulse 94 Resp 22 B/P (MAP) 134/89 (104) Pulse Ox 95 O2 Delivery Room Air Capillary Refill : Less Than 3 Seconds Blood Pressure Mean: 104 Progress Note : Progress Note Seen and evaluated. Benadryl 50 mg IM, prednisone 60 mg by mouth and Pepcid 20 mg by mouth. Discharged home with return precautions. Patient verbalize understanding instructions and agreement with plan. Departure Impression Primary Impression: Contact dermatitis Qualified Codes: L23.9 - Allergic contact dermatitis, unspecified cause Disposition: 01 HOME, SELF-CARE Condition: Stable Departure-Patient Inst. Decision time for Depature: 23:22 Referrals: [facility] [place] ([place]) Primary Care Physician Patient Instructions: Contact Dermatitis (DC) Add. Discharge Instructions: All discharge instructions reviewed with patient and/or family. Voiced understanding. You may take Benadryl or the generic diphenhydramine, 25-50 mg every 6 hours as needed for itching. You may take Pepcid or the generic famotidine 20 mg daily as needed over the next several days. Take other medications as directed. Follow-up with your DrRobert in a few days for recheck as needed. Return for worsening, weakness, breathing problems, nausea, vomiting, swelling in your mouth or throat or other concerns as needed. Scripts Prednisone (Prednisone) 20 Mg Tab 40 MG PO DAILY, #10 TAB 0 Refills Prov: YOBANY CLAYTON MD 04/08/20 YOBANY CLAYTON MD Apr 08, 2020 23:23
[2020-04-08] MEDS ORDERED: diphenhydrAMINE 50 MG/ML INJ (BENADRYL) IM ONE (23:30)
[2020-04-08] MEDS ORDERED: predniSONE 20 MG TAB PO ONE (23:30)
[2020-04-08] MEDS ORDERED: FAMOTIDINE 20 MG (PEPCID) TABLET PO ONE (23:30)
--- OUTSIDE RECORDS SUMMARY | 2020-04-09 | XMS REPORT ---
Author Author Kateryna Turner Doctor Organization [facility] Address Unknown Phone Unavailable Care Team Providers Care Embedded Software Programmer Name Role Phone Migration, Doctor Unavailable Unavailable PROBLEMS Type Condition ICD9-CM Code XIT65-SM Code Onset Dates Condition S tatus SNOMED Code Problem Irregular menses N92.6 Active 801 31091 Problem Migraine with aura and without status migrainosu s, not intractable G43.109 Active 6222062 Problem Uncontrolled type 2 diabetes mellitus with hyperglycemia E11.65 Active 624910568 Problem Morbid obesity due to excess calories E66.01 Active 264154321 Problem RLS (restless legs syndrome) G25.81 A ctive 27630758 Problem Morbid obesity E66.01 Active 55915 6002 ALLERGIES No Information ENCOUNTERS Encounter Location Date Diagnosis [facility] [address] [id number] [address] [place] [id number] 30 Feb, 2020 [facility] [address] [id number] [address] [place] [id number] 15 Feb, 2020 Encounter for screening labo ratory testing for COVID-19 virus Z11.59 [facility] [address] [id number] [address] [place] [id number] 08 Feb, 2020 [facility] [address] [id number] [address] [place] [phone] January, [facility] [address] [id number] [address] [place] [id number] January, BMI 50.0-59.9, adult Z68.43 and Vomiting, unspecified R11.10 [facility] [address] [id number] [address] [place] [id number] 14 Jan, 2020 [facility] [address] [id number] [address] [place] [id number] Dec, [facility] [address] [id number] [address] [place] [id number] 27 Dec, 2019 [facility] [address] [id number] [address] [place] [id number] 23 Dec, 2019 Uncontrolled type 2 diabetes mellitus with hyperglycemia E11.65 [facility] [address] [id number] [address] [place] [phone] 07 Dec, 2019 [facility] [address] [id number] [address] [place] [phone] 06 Dec, 2019 [facility] [address] [id number] [address] [place] [id number] 03 Dec, 2019 [facility] [address] [id number] [address] [place] [id number] 30 Nov, 2019 [facility] [address] [id number] [address] [place] [phone] 28 Nov, 2019 [facility] [address] [id number] [address] [place] [id number] Nov, [facility] [address] [id number] [address] [place] [address] Nov, RLS (restless legs syndrome) G25.81 [facility] [address] [id number] [address] [place] [id number] 15 Oct, 2019 [facility] [address] [id number] [address] [place] [id number] 09 Oct, 2019 Influenza J11.1 [facility] [address] [id number] [address] [place] [id number] 16 Sep, 2019 [facility] [address] [facility] [id number] [address] [place] [id number] 14 Sep, 2019 [facility] [address] [facility] [id number] [address] [place] [phone] 14 Sep, 2019 [facility] [address] [id number] [address] [place] [phone] 13 Sep, 2019 [facility] [address] [id number] [address] [place] [id number] 10 Sep, 2019 Pneumonia of left lower lobe due to infectious organism J18.9 and Migraine with aura and without status migrainosus, not intractable G43.109 [facility] [address] [id number] [address] [place] [phone] Sep, [facility] [address] [id number] [address] [place] [phone] Sep, [facility] [address] [id number] [address] [place] [phone] Sep, [facility] [address] [id number] [address] [place] [phone] Sep, [facility] [address] [id number] [address] [place] [address] Sep, Pneumonia of left lower lobe due to infectious organism J18.9 and Migraine with aura and without status migrainosus, not intractable G43.109 [facility] [address] [id number] [address] [place] [address] Aug, Irregular menses N92.6 ; Wel l woman exam Z01.419 ; Pelvic cramping R10.2 and Left breast lump N63.20 [facility] [address] [id number] [address] [place] [address] Aug, [facility] [address] [id number] [address] [place] [address] Aug, Well woman exam Z01.419 ; Le ft breast lump N63.20 ; Irregular menses N92.6 ; Encounter for immunization Z23 ; Pelvic cramping R10.2 and Screening for cervical cancer Z12.4 [facility] [address] [id number] [address] [place] [phone] Aug, [facility] [address] [id number] [address] [place] [phone] Aug, [address] [address] [facility] [id number] [address] [place] [phone] Aug, [facility] [address] [facility] [id number] [address] [place] [address] Jul, [facility] [address] [facility] [id number] [address] [place] [address] Jun, [facility] [address] [facility] [id number] [place] [phone] Jun, [facility] [address] [facility] [id number] [address] [place] [phone] Jun, [facility] [address] [facility] [id number] [place] [address] Jun, BMI 50.0-59.9, adult Z68.43 [facility] [address] [facility] [id number] [address] [place] [address] Jun, [facility] [address] [facility] [id number] [address] [place] [address] May, Acute non-recurrent sinusiti s, unspecified location J01.90 ; Diarrhea, unspecified R19.7 ; Vomiting, unspecified R11.10 and Morbid obesity E66.01 [facility] [address] [facility] [id number] [address] [place] [address] Apr, [facility] [address] [id number] [address] [place] [address] Apr, Anemia due to other cause, n ot classified D64.89 and D-dimer, elevated R79.89 [facility] [address] [facility] [id number] [address] [place] [phone] Apr, [facility] [address] [id number] [address] [place] [phone] Apr, [facility] [address] [facility] [id number] [address] [place] [address] Mar, Anemia due to other cause, n ot classified D64.89 and D-dimer, elevated R79.89 [facility] [address] [id number] [address] [place] [address] Mar, Leg edema, right R60.0 ; Hig h risk medication use Z79.899 and Morbid obesity E66.01 [facility] [address] [facility] [id number] [address] [place] [address] Mar, BMI 50.0-59.9, adult Z68.43 [facility] [address] [id number] [address] [place] [address] Mar, [address] [address] [facility] [id number] [address] [place] [address] January, Uncontrolled type 2 diabetes mellitus with hyperglycemia E11.65 ; RLS (restless legs syndrome) G25.81 and Morbid obesity E66.01 [place] [address] [facility] [id number] [address] [place] [address] Oct, Lipoma of right lower extrem ity D17.23 [address] [address] [id number] [address] [place] [address] Oct, Lipoma of right lower extrem ity D17.23 [facility] [address] [id number] [address] [place] [address] Sep, [facility] [address] [id number] [address] [place] [address] Sep, [facility] [address] [id number] [address] [place] [phone] Sep, [facility] [address] [id number] [address] [place] [phone] Sep, [facility] [address] [facility] [id number] [address] [place] [address] Sep, [facility] [address] [facility] [id number] [address] [place] [address] Aug, Uncontrolled type 2 diabetes mellitus with hyperglycemia E11.65 ; Morbid obesity due to excess calories E66.01 ; Lipoma of torso D17.1 and BMI 50.0-59.9, adult Z68.43 [facility] [address] [id number] [address] [place] [address] Jun, Encounter for immunization Z 23 [facility] [address] [id number] [address] [place] [address] Jul, [facility] [address] [id number] [address] [place] [address] Jun, Encounter for immunization Z 23 [facility] [address] [id number] [address] [place] [address] May, [facility] [address] [id number] [address] [place] [address] Jun, Encounter for immunization Z 23 [facility] [address] [id number] [address] [place] [address] May, [facility] [address] [id number] [address] [place] [phone] May, [facility] [address] [id number] [address] [place] [phone] Apr, [facility] [address] [id number] [address] [place] [address] Feb, [facility] [address] [id number] [address] [place] [address] Feb, [facility] [address] [id number] [address] [place] [phone] Feb, [facility] [address] [id number] [address] [place] [phone] January, [facility] [address] [id number] [address] [place] [phone] January, [facility] [address] [id number] [address] [place] [phone] Dec, [facility] [address] [id number] [address] [place] [address], [place] [address] Dec, [facility] [address] [id number] [address] [place] [address], [place] [address] Nov, [facility] [address] [id number] [address] [place] [address], [place] [address] Nov, [facility] [address] [id number] [address] [place] [address], [place] [id number] Nov, [facility] [address] [id number] [address] [place] [address], [place] [address] Nov, [facility] [address] [id number] [address] [place] [address], [place] [address] Nov, [facility] [address] [id number] [address] [place] [address], [place] [address] Nov, [facility] [address] [id number] [address] [place] [address], [place] [address] Nov, [facility] [address] [id number] [address] [place] [address], [place] [address] Oct, [facility] [address] [id number] [address] [place] [address], [place] [address] Oct, [facility] [address] [id number] [address] [place] [address], [place] [address] Oct, [facility] [address] [id number] [address] [place] [address], [place] [address] Oct, [facility] [address] [id number] [address] [place] [address], [place] [address] Oct, [facility] [address] [id number] [address] [place] [address], [place] [address] Sep, [facility] [address] [id number] [address] [place] [address], [place] [address] Sep, [facility] [address] [id number] [address] [place] [address], [place] [address] Sep, [facility] [address] [id number] [address] [place] [address], [place] [address] Sep, [facility] [address] [id number] [address] [place] [address], [place] [address] Sep, [facility] [address] [id number] [address] [place] [address], [place] [address] Sep, [facility] [address] [id number] [address] [place] [address], [place] [address] Sep, [facility] [address] [id number] [address] [place] [address], [place] [address] Sep, [facility] [address] [id number] [address] [place] [address], [place] [address] Sep, [facility] [address] [id number] [address] [place] [address], [place] [address] Sep, [facility] [address] [id number] [address] [place] [address], [place] [address] Aug, [facility] [address] [id number] [address] [place] [address], [place] [address] Aug, [facility] [address] [id number] [address] [place] [address], [place] [address] Aug, [facility] [address] [id number] [address] [place] [address], [place] [address] Aug, [facility] [address] [id number] [address] [place] [address], [place] [address] Aug, [facility] [address] [id number] [address] [place] [address], [place] [address] Aug, [facility] [address] [id number] [address] [place] [address], [place] [address] Aug, [facility] [address] [id number] [address] [place] [address], [place] [address] Aug, [facility] [address] [id number] [address] [place] [address], [place] [address] Aug, [facility] [address] [id number] [address] [place] [address], [place] [address] Aug, [facility] [address] [id number] [address] [place] [address], [place] [address] Aug, [facility] [address] [id number] [address] [place] [address], [place] [address] Aug, [facility] [address] [id number] [address] [place] [address], [place] [address] Aug, [facility] [address] [id number] [address] [place] [address], [place] [address] Aug, [facility] [address] [id number] [address] [place] [address], [place] [address] Aug, [facility] [address] [id number] [address] [place] [address], [place] [address] Aug, [facility] [address] [id number] [address] [place] [address], [place] [address] Aug, [facility] [address] [id number] [address] [place] [address], [place] [address] Aug, [facility] [address] [id number] [address] [place] [address], [place] [address] Aug, [facility] [address] [id number] [address] [place] [address], [place] [address] Aug, [facility] [address] [id number] [address] [place] [address], [place] [address] Aug, [facility] [address] [id number] [address] [place] [address], [place] [address] Aug, [facility] [address] [id number] [address] [place] [address], [place] [address] 05 Aug, 2014 [facility] [address] [id number] [address] [place] [address], [place] [address] 05 Aug, 2014 [facility] [address] [id number] [address] [place] [address], [place] [address] 07 Jul, 2014 [facility] [address] [id number] [address] [place] [address], [place] [address] 07 Jul, 2014 [facility] [address] [id number] [address] [place] [address], [place] [address] 27 Jun, 2014 [facility] [address] [id number] [address] [place] [address], [place] [address] 27 Jun, 2014 [facility] [address] [id number] [address] [place] [address], [place] [address] 17 Jun, 2014 [facility] [address] [id number] [address] [place] [address], [place] [address] 17 Jun, 2014 [facility] [address] [id number] [address] [place] [address], [place] [address] 15 Jun, 2014 [facility] [address] [id number] [address] [place] [address], [place] [address] 15 Jun, 2014 [facility] [address] [id number] [address] [place] [address], [place] [address] 14 Jun, 2014 [facility] [address] [id number] [address] [place] [address], [place] [address] 14 Jun, 2014 [facility] [address] [id number] [address] [place] [id number] 13 Jun, 2014 [facility] [address] [id number] [address] [place] [id number] 13 Jun, 2014 [facility] [address] [id number] [address] [place] [address], [place] [address] 13 Jun, 2014 [facility] [address] [id number] [address] [place] [address], [place] [address] 13 Jun, 2014 [facility] [address] [id number] [address] [place] [address], [place] [address] 06 Jun, 2014 [facility] [address] [id number] [facility] [address] Jun, [facility] [address] [id number] [facility] [place] [address] May, 2013 [facility] [address] [id number] [facility] [address] May, 2013 [facility] [address] [id number] [address] [place] [address], [place] [address] May, 2013 [facility] [address] [id number] [address] [place] [address], [place] [address] May, 2013 [facility] [address] [id number] [address] [place] [address], [place] [address] May, 2013 [facility] [address] [id number] [address] [place] [address], [place] [address] May, 2013 [facility] [address] [id number] [address] [place] [address], [place] [address] May, 2013 [facility] [address] [id number] [address] [place] [address], [place] [address] May, [facility] [address] [id number] [address] [place] [address], [place] [address] Apr, [facility] [address] [id number] [address] [place] [address], [place] [address] Apr, [facility] [address] [id number] [address] [place] [address], [place] [address] Apr, [facility] [address] [id number] [address] [place] [address], [place] [address] Apr, [facility] [address] [id number] [address] [place] [address], [place] [address] Apr, [facility] [address] [id number] [address] [place] [address], [place] [address] Apr, [facility] [address] [id number] [address] [place] [address], [place] [id number] Apr, [facility] [address] [id number] [address] [place] [address], [place] [id number] Apr, [facility] [address] [id number] [address] [place] [address], [place] [id number] Apr, [facility] [address] [id number] [address] [place] [address], [place] [id number] Mar, [facility] [address] [id number] [address] [place] [address], [place] [address] Mar, [facility] [address] [id number] [address] [place] [address], [place] [address] Mar, [facility] [address] [id number] [address] [place] [address], [place] [id number] Feb, [facility] [address] [id number] [address] [place] [address], [place] [id number] Feb, [facility] [address] [id number] [address] [place] [address], [place] [id number] Feb, [facility] [address] [id number] [address] [place] [address], [place] [address] Feb, [facility] [address] [id number] [address] [place] [address], [place] [address] Feb, [facility] [address] [id number] [address] [place] [address], [place] [id number] Feb, [facility] [address] [id number] [address] [place] [address], [place] [id number] 16 Feb, 2014 [facility] [address] [id number] [address] [place] [address], [place] [id number] Feb, [facility] [address] [id number] [address] [place] [address], [place] [address] Feb, [facility] [address] [id number] [address] [place] [address], [place] [id number] 16 Feb, 2014 [facility] [address] [id number] [address] [place] [address], [place] [address] Feb, [facility] [address] [id number] [address] [address] Feb, [facility] [address] [id number] [address] [place] [address], [place] [id number] Feb, [facility] [address] [id number] [address] [place] [address], [place] [address] Feb, [facility] [address] [id number] [address] [place] [address], [place] [address] Feb, [facility] [address] [id number] [address] [place] [address], [place] [address] Feb, [facility] [address] [id number] [address] [place] [address], [place] [address] January, [facility] [address] [id number] [address] [place] [address], [place] [address] January, [facility] [address] [id number] [address] [place] [address], [place] [address] January, [facility] [address] [id number] [address] [place] [address], [place] [address] January, [facility] [address] [id number] [address] [place] [address], [place] [address] January, [facility] [address] [id number] [address] [place] [address], [place] [address] January, [facility] [address] [id number] [address] [place] [address], [place] [address] January, [facility] [address] [id number] [address] [place] [address], [place] [address] January, [facility] [address] [id number] [address] [place] [address], [place] [address] January, [facility] [address] [id number] [address] [place] [address], [place] [address] January, [facility] [address] [id number] [address] [address] January, [facility] [address] [id number] [address] [id number] January, [facility] [address] [id number] [address] [address] January, [facility] [address] [id number] [address] [address] January, [facility] [address] [id number] [address] [address] January, [facility] [address] [id number] [address] [place] [address], [place] [address] January, [facility] [address] [id number] [address] [place] [address], [place] [address] January, [facility] [address] [id number] [address] [place] [address], [place] [address] January, [facility] [address] [id number] [address] [place] [address], [place] [address] January, [facility] [address] [id number] [address] [place] [address], [place] [address] January, [facility] [address] [id number] [address] [place] [address], [place] [address] January, [facility] [address] [id number] [address] [place] [address], [place] [address] January, [facility] [address] [id number] [address] [place] [address], [place] [address] January, [facility] [address] [id number] [address] [place] [address], [place] [address] January, [facility] [address] [id number] [address] [place] [address], [place] [address] January, [facility] [address] [id number] [address] [place] [address], [place] [address] January, [facility] [address] [id number] [address] [address] Dec, [facility] [address] [id number] [address] [address] Dec, [facility] [address] [id number] [address] [place] [address], [place] [address] Dec, [facility] [address] [id number] [address] [place] [address], [place] [address] Dec, [facility] [address] [id number] [address] [place] [address], [place] [address] Dec, [facility] [address] [id number] [address] [place] [address], [place] [address] Dec, [facility] [address] [id number] [address] [place] [address], [place] [address] Dec, [facility] [address] [id number] [address] [place] [address], [place] [address] Dec, [facility] [address] [id number] [address] [place] [address], [place] [address] Dec, [facility] [address] [id number] [address] [place] [address], [place] [address] Dec, [facility] [address] [id number] [address] [place] [address], [place] [address] Dec, [facility] [address] [id number] [address] [place] [address], [place] [address] Dec, [facility] [address] [id number] [address] [place] [address], [place] [address] Dec, [facility] [address] [id number] [address] [place] [address], [place] [address] Dec, [facility] [address] [id number] [address] [place] [address], [place] [address] Dec, [facility] [address] [id number] [address] [address] 09 Dec, 2013 [facility] [address] [id number] [address] [place] [address], [place] [address] Dec, [facility] [address] [id number] [address] [place] [address], [place] [address] Dec, [facility] [address] [id number] [address] [place] [address], [place] [address] Dec, [facility] [address] [id number] [address] [place] [address], [place] [address] Dec, [facility] [address] [id number] [address] [place] [address], [place] [address] Dec, [facility] [address] [id number] [address] [place] [address], [place] [address] Dec, [facility] [address] [id number] [address] [place] [address], [place] [address] Nov, [facility] [address] [id number] [address] [place] [address], [place] [address] Nov, [facility] [address] [id number] [address] [place] [address], [place] [address] Nov, [facility] [address] [id number] [address] [place] [address], [place] [address] Nov, [facility] [address] [id number] [address] [place] [address], [place] [address] 24 Nov, 2013 [facility] [address] [id number] [address] [place] [address], [place] [address] 24 Nov, 2013 [facility] [address] [id number] [address] [place] [address], [place] [address] Nov, [facility] [address] [id number] [address] [place] [address], [place] [address] 22 Nov, 2013 [facility] [address] [id number] [address] [place] [address], [place] [address] 18 Nov, 2013 [facility] [address] [id number] [address] [address] 18 Nov, 2013 [facility] [address] [id number] [address] [place] [address], [place] [address] 18 Nov, 2013 [facility] [address] [id number] [address] [place] [address], [place] [address] 18 Nov, 2013 [facility] [address] [id number] [address] [place] [address], [place] [address] 14 Nov, 2013 [facility] [address] [id number] [address] [place] [address], [place] [address] 14 Nov, 2013 [facility] [address] [id number] [address] [place] [address], [place] [address] Nov, [facility] [address] [id number] [address] [place] [address], [place] [address] Nov, [facility] [address] [id number] [address] [place] [address], [place] [address] Oct, [facility] [address] [id number] [address] [place] [address], [place] [address] Oct, [facility] [address] [id number] [address] [place] [address], [place] [address] 24 Oct, 2013 [facility] [address] [id number] [address] [place] [address], [place] [address] Oct, [facility] [address] [id number] [address] [place] [address], [place] [address] Oct, [facility] [address] [id number] [address] [place] [address], [place] [address] Oct, [facility] [address] [id number] [address] [place] [address], [place] [address] Oct, [facility] [address] [id number] [address] [place] [address], [place] [address] Oct, [facility] [address] [id number] [address] [address] Oct, [facility] [address] [id number] [address] [place] [address], [place] [address] Oct, [facility] [address] [id number] [address] [place] [address], [place] [address] Oct, [facility] [address] [id number] [address] [place] [address], [place] [address] Oct, [facility] [address] [id number] [address] [place] [address], [place] [address] Oct, [facility] [address] [id number] [address] [place] [address], [place] [address] Oct, [facility] [address] [id number] [address] [place] [address], [place] [address] Oct, [facility] [address] [id number] [address] [place] [address], [place] [address] Sep, [facility] [address] [id number] [address] [place] [address], [place] [address] Sep, [facility] [address] [id number] [address] [place] [address], [place] [address] Sep, [facility] [address] [id number] [address] [place] [address], [place] [address] Sep, [facility] [address] [id number] [address] [place] [address], [place] [address] Sep, [facility] [address] [id number] [address] [place] [address], [place] [address] Sep, [facility] [address] [id number] [address] [place] [address], [place] [address] Sep, [facility] [address] [id number] [address] [place] [address], [place] [address] Sep, [facility] [address] [id number] [address] [place] [address], [place] [address] Sep, [facility] [address] [id number] [address] [place] [address], [place] [address] Sep, [facility] [address] [id number] [address] [place] [address], [place] [address] Sep, [facility] [address] [id number] [address] [place] [address], [place] [address] Sep, [facility] [address] [id number] [address] [place] [address], [place] [address] Sep, [facility] [address] [id number] [address] [place] [address], [place] [address] Aug, [facility] [address] [id number] [address] [place] [address], [place] [address] Aug, [facility] [address] [id number] [address] [place] [address], [place] [address] Aug, [facility] [address] [id number] [address] [place] [address], [place] [address] Aug, [facility] [address] [id number] [address] [place] [address], [place] [address] Aug, [facility] [address] [id number] [address] [place] [address], [place] [address] 17 Aug, 2013 [facility] [address] [id number] [address] [place] [address], [place] [address] 16 Aug, 2013 [facility] [address] [id number] [address] [place] [address], [place] [address] 16 Aug, 2013 [facility] [address] [id number] [address] [place] [address], [place] [address] Aug, [facility] [address] [id number] [address] [place] [address], [place] [address] Aug, [facility] [address] [id number] [address] [place] [address], [place] [address] 10 Aug, 2013 [facility] [address] [id number] [address] [place] [address], [place] [address] 10 Aug, 2013 [facility] [address] [id number] [address] [place] [address], [place] [address] 02 Aug, 2013 [facility] [address] [id number] [address] [place] [address], [place] [address] 02 Aug, 2013 [facility] [address] [id number] [address] [place] [address], [place] [address] 19 Jul, 2013 [facility] [address] [id number] [address] [place] [address], [place] [address] 19 Jul, 2013 [facility] [address] [id number] [address] [place] [address], [place] [address] 18 Jul, 2013 [facility] [address] [id number] [address] [place] [address], [place] [address] 18 Jul, 2013 [facility] [address] [id number] [address] [place] [address], [place] [address] 14 Jul, 2013 [facility] [address] [id number] [address] [place] [address], [place] [address] 14 Jul, 2013 [facility] [address] [id number] [address] [place] [address], [place] [address] 14 Jul, 2013 [facility] [address] [id number] [address] [place] [address], [place] [address] 14 Jul, 2013 [facility] [address] [id number] [address] [place] [address], [place] [address] 07 Jul, 2013 [facility] [address] [id number] [address] [place] [address], [place] [address] 07 Jul, 2013 [facility] [address] [id number] [address] [place] [address], [place] [address] 06 Jul, 2013 [facility] [address] [id number] [address] [place] [address], [place] [address] 06 Jul, 2013 [facility] [address] [id number] [address] [place] [id number] 05 Jul, 2013 [facility] [address] [id number] [address] [place] [address], [place] [address] 05 Jul, 2013 [facility] [address] [id number] [address] [place] [address], [place] [address] 23 Jun, 2013 [facility] [address] [id number] [address] [place] [address], [place] [address] 23 Jun, 2013 [facility] [address] [id number] [address] [place] [address], [place] [address] 15 Jun, 2013 [facility] [address] [id number] [address] [place] [address], [place] [address] 15 Jun, 2013 [facility] [address] [id number] [address] [place] [address], [place] [address] 14 Jun, 2013 [facility] [address] [id number] [address] [place] [address], [place] [address] 24 May, 2013 [facility] [address] [id number] [address] [place] [address], [place] [address] 20 May, 2012 [facility] [address] [id number] [address] [place] [address], [place] [address] 20 May, 2012 [facility] [address] [id number] [address] [place] [address], [place] [address] 20 May, 2012 [facility] [address] [id number] [address] [place] [address], [place] [address] 19 May, 2012 [facility] [address] [id number] [address] [place] [address], [place] [address] 13 May, 2012 [facility] [address] [id number] [address] [place] [address], [place] [address] 12 May, 2012 [facility] [address] [id number] [address] [place] [address], [place] [address] 12 May, 2012 [facility] [address] [id number] [address] [place] [address], [place] [address] 11 May, 2012 [facility] [address] [id number] [address] [place] [address], [place] [address] May, 2012 [facility] [address] [id number] [address] [place] [address], [place] [address] 11 May, 2012 [facility] [address] [id number] [address] [place] [address], [place] [address] 09 May, 2012 [facility] [address] [id number] [address] [place] [address], [place] [address] 05 May, 2012 [facility] [address] [id number] [address] [place] [address], [place] [address] 04 May, 2012 [facility] [address] [id number] [address] [place] [address], [place] [address] May, [facility] [address] [id number] [address] [place] [address], [place] [address] Apr, [facility] [address] [id number] [address] [place] [address], [place] [address] Apr, [facility] [address] [id number] [address] [place] [address], [place] [address] Apr, [facility] [address] [id number] [address] [place] [address], [place] [address] Apr, [facility] [address] [id number] [address] [place] [address], [place] [address] Apr, [facility] [address] [id number] [address] [place] [address], [place] [address] Apr, [facility] [address] [id number] [address] [place] [address], [place] [address] Apr, [facility] [address] [id number] [address] [place] [address], [place] [address] Apr, [facility] [address] [id number] [address] [place] [address], [place] [address] Apr, [facility] [address] [id number] [address] [place] [address], [place] [address] Mar, [facility] [address] [id number] [address] [place] [address], [place] [address] Mar, 2012 [facility] [address] [id number] [address] [place] [address], [place] [address] Mar, 2012 [facility] [address] [id number] [address] [place] [address], [place] [address] Mar, [facility] [address] [id number] [address] [place] [address], [place] [address] Mar, [facility] [address] [id number] [address] [place] [address], [place] [address] Mar, [facility] [address] [id number] [address] [place] [address], [place] [address] Mar, [facility] [address] [id number] [address] [place] [address], [place] [address] Mar, [facility] [address] [id number] [address] [place] [address], [place] [address] Mar, [facility] [address] [id number] [address] [place] [address], [place] [address] Mar, [facility] [address] [id number] [address] [place] [address], [place] [id number] Mar, [facility] [address] [id number] [address] [place] [address], [place] [address] Feb, [facility] [address] [id number] [address] [place] [address], [place] [address] Feb, [facility] [address] [id number] [address] [place] [address], [place] [id number] Feb, [facility] [address] [id number] [address] [place] [address], [place] [address] Feb, [facility] [address] [id number] [address] [place] [address], [place] [address] Feb, [facility] [address] [id number] [address] [place] [address], [place] [id number] Feb, [facility] [address] [id number] [address] [place] [address], [place] [address] Feb, [facility] [address] [id number] [address] [place] [address], [place] [id number] Feb, [facility] [address] [id number] [address] [place] [address], [place] [address] Feb, [facility] [address] [id number] [address] [place] [address], [place] [address] January, [facility] [address] [id number] [address] [place] [address], [place] [address] January, [facility] [address] [id number] [address] [place] [address], [place] [address] January, [facility] [address] [id number] [address] [place] [address], [place] [address] January, [facility] [address] [id number] [address] [place] [address], [place] [address] January, [facility] [address] [id number] [address] [place] [address], [place] [address] January, [facility] [address] [id number] [address] [place] [address], [place] [address] January, [facility] [address] [id number] [address] [place] [address], [place] [address] January, [facility] [address] [id number] [address] [place] [address], [place] [address] January, [facility] [address] [id number] [address] [place] [address], [place] [address] January, [facility] [address] [id number] [address] [place] [address], [place] [address] January, [facility] [address] [id number] [address] [place] [address], [place] [address] January, [facility] [address] [id number] [address] [place] [address], [place] [address] January, [facility] [address] [id number] [address] [place] [address], [place] [address] January, [facility] [address] [id number] [address] [place] [address], [place] [address] January, [facility] [address] [id number] [address] [place] [address], [place] [address] January, [facility] [address] [id number] [address] [place] [address], [place] [address] January, [facility] [address] [id number] [address] [place] [address], [place] [address] January, [facility] [address] [id number] [address] [place] [address], [place] [address] January, [facility] [address] [id number] [address] [place] [address], [place] [address] January, [facility] [address] [id number] [address] [place] [address], [place] [address] January, [facility] [address] [id number] [address] [place] [address], [place] [address] January, [facility] [address] [id number] [address] [place] [address], [place] [address] January, [facility] [address] [id number] [address] [place] [address], [place] [address] Dec, [facility] [address] [id number] [address] [place] [address], [place] [address] 18 Dec, 2012 [facility] [address] [id number] [address] [place] [address], [place] [id number] 17 Dec, 2012 [facility] [address] [id number] [address] [place] [address], [place] [address] 16 Dec, 2012 [facility] [address] [id number] [address] [place] [address], [place] [address] Dec, [facility] [address] [id number] [address] [place] [address], [place] [address] Nov, [facility] [address] [id number] [address] [place] [address], [place] [id number] Oct, [facility] [address] [id number] [address] [place] [address], [place] [address] Oct, [facility] [address] [id number] [address] [place] [address], [place] [address] Oct, [facility] [address] [id number] [address] [place] [address], [place] [address] Oct, [facility] [address] [id number] [address] [place] [address], [place] [id number] Oct, [facility] [address] [id number] [address] [place] [address], [place] [address] Sep, [facility] [address] [id number] [address] [place] [address], [place] [id number] Sep, [facility] [address] [id number] [address] [place] [address], [place] [id number] Sep, [facility] [address] [id number] [address] [place] [address], [place] [id number] Aug, [facility] [address] [id number] [address] [place] [address], [place] [id number] Aug, [facility] [address] [id number] [address] [place] [address], [place] [address] Aug, [facility] [address] [id number] [address] [place] [address], [place] [id number] Aug, [facility] [address] [id number] [address] [place] [address], [place] [id number] Jul, [facility] [address] [id number] [address] [place] [address], [place] [id number] Jul, [facility] [address] [id number] [address] [place] [address], [place] [address] Jul, [facility] [address] [id number] [address] [place] [address], [place] [id number] Jul, [facility] [address] [id number] [address] [place] [address], [place] [id number] Jul, [facility] [address] [id number] [address] [place] [address], [place] [address] Jul, [facility] [address] [id number] [address] [place] [phone] Jun, [facility] [address] [id number] [address] [place] [address], [place] [id number] Jun, [facility] [address] [id number] [address] [place] [address], [place] [address] Jun, [facility] [address] [id number] [address] [place] [address], [place] [id number] Jun, [facility] [address] [id number] [address] [place] [id number] Jun, [facility] [address] [id number] [address] [place] [id number] Jun, [facility] [address] [id number] [address] [place] [id number] Jun, [facility] [address] [id number] [address] [place] [id number] 05 Jun, 2012 [facility] [address] [id number] [address] [place] [phone] Jun, [facility] [address] [id number] [address] [place] [address], [place] [id number] Jun, [facility] [address] [id number] [address] [place] [id number] 17 May, 2012 [facility] [address] [id number] [address] [place] [address], [place] [id number] 08 May, 2012 [facility] [address] [id number] [address] [place] [address], [place] [id number] May, [facility] [address] [id number] [address] [place] [address], [place] [address] Apr, [facility] [address] [id number] [address] [place] [address], [place] [address] Apr, [facility] [address] [id number] [address] [place] [address], [place] [id number] Apr, [facility] [address] [id number] [address] [place] [address], [place] [id number] Apr, [facility] [address] [id number] [address] [place] [address], [place] [address] Apr, [facility] [address] [id number] [address] [place] [address], [place] [id number] Apr, [facility] [address] [id number] [address] [place] [address], [place] [address] Apr, [facility] [address] [id number] [address] [place] [address], [place] [id number] Apr, [facility] [address] [id number] [address] [place] [address], [place] [address] Apr, [facility] [address] [id number] [address] [place] [address], [place] [address] Mar, [facility] [address] [id number] [address] [place] [address], [place] [address] Mar, [facility] [address] [id number] [address] [place] [address], [place] [address] Mar, [facility] [address] [id number] [address] [place] [address], [place] [id number] Mar, [facility] [address] [id number] [address] [place] [address], [place] [id number] Feb, [facility] [address] [id number] [address] [place] [address], [place] [address] Feb, [facility] [address] [id number] [address] [place] [address], [place] [address] Feb, [facility] [address] [id number] [address] [place] [address], [place] [address] January, [facility] [address] [id number] [address] [place] [address], [place] [address] January, [facility] [address] [id number] [address] [place] [address], [place] [address] January, [facility] [address] [id number] [address] [place] [address], [place] [address] January, [facility] [address] [id number] [address] [place] [address], [place] [address] January, [facility] [address] [id number] [address] [place] [address], [place] [address] Dec, [facility] [address] [id number] [address] [place] [address], [place] [address] Dec, [facility] [address] [id number] [address] [place] [address], [place] [address] Dec, [facility] [address] [id number] [address] [place] [address], [place] [address] Oct, [facility] [address] [id number] [address] [place] [address], [place] [address] Oct, [facility] [address] [id number] [address] [place] [address], [place] [address] Oct, [facility] [address] [id number] [address] [place] [address], [place] [address] Sep, [facility] [address] [id number] [address] [place] [address], [place] [address] Sep, [facility] [address] [id number] [address] [place] [address], [place] [address] Aug, [facility] [address] [id number] [address] [place] [address], [place] [id number] 08 Jul, 2011 [facility] [address] [id number] [address] [place] [address], [place] [id number] 08 Jul, 2011 [facility] [address] [id number] [address] [place] [address], [place] [address] Mar, [facility] [address] [id number] [address] [place] [address], [place] [address] Aug, [facility] [address] [id number] [address] [place] [address], [place] [id number] 10 Jul, 2010 [facility] [address] [id number] [address] [place] [address], [place] [address] Jul, [facility] [address] [id number] [address] [place] [address], [place] [address] Jul, [facility] [address] [id number] [address] [place] [address], [place] [address] Jul, [facility] [address] [id number] [address] [place] [address], [place] [address] 14 Jun, 2010 [facility] [address] [id number] [address] [place] [address], [place] [address] Jun, [facility] [address] [id number] [address] [place] [address], [place] [address] Apr, [facility] [address] [id number] [address] [place] [address], [place] [address] Aug, [facility] [address] [id number] [address] [place] [address], [place] [address] Jul, [facility] [address] [id number] [address] [place] [address], [place] [address] Jul, [facility] [address] [id number] [address] [place] [address], [place] [id number] 13 Jul, 2009 [facility] [address] [id number] [address] [place] [id number] 23 Jun, 2009 [facility] [address] [facility] [id number] [address] [place] [id number] 10 May, 2009 [facility] [address] [facility] [id number] [address] [place] [id number] 14 Dec, 2008 [facility] [address] [facility] [id number] [address] [place] [id number] Nov, [facility] [address] [facility] [id number] [address] [place] [id number] 10 Oct, 2008 [facility] [address] [facility] [id number] [address] [place] [id number] Aug, [facility] [address] [facility] [id number] [address] [place] [id number] Aug, [facility] [address] [facility] [id number] [address] [place] [id number] 28 Jun, 2008 IMMUNIZATIONS No Known Immunizations SOCIAL HISTORY Never Assessed REASON FOR VISIT PLAN OF CARE VITAL SIGNS MEDICATIONS Unknown Medications RESULTS No Results PROCEDURES Procedure Date Ordered Result Body Site ASSAY OF MAGNESIUM March 24, 2013 BASIC METABOLIC PANEL March 24, 2013 VENIPUNCT, ROUTINE* March 24, 2013 INSTRUCTIONS MEDICATIONS ADMINISTERED No Known Medications MEDICAL (GENERAL) HISTORY Type Description Date Medical History depression Medical History chronic pain due to back surgery Medical History migraine headaches Medical History orthopedic disorder Medical History Arthritis Medical History Hypothyroidism Medical History obesity (morbid) Medical History hyperlipidemia Medical History hypokalemia (recurrent) Medical History chronic renal insufficiency Medical History fatty liver Medical History sarcoidosis Medical History chronic obstructive pulmonary disease (C OPD) Medical History pulmonary hypertension Medical History stridor Medical History posterior glottic stenosis Medical History vocal cord paralysis Medical History cardiac enzymes elevated Medical History chronic peripheral edema Medical History chronic venous stasis secondary to morbi d obesity Medical History diastolic dysfunction Medical History hypoxia Medical History obesity-hypoventilation syndrome with ch ronic CO2 retention Medical History hx of renal insufficiency Medical History hemorrhagic cyst Medical History prediabetes Medical History cellulitis LLE with LLE wound Medical History carrier for hemophilia per pt report Surgical History back surgery fusion, replace d disk, rods, and screws placed-Dr. Shannon 03/2011 Surgical History laminectomy 05/2011 Surgical History oopherectomy-right 02/2012 Surgical History appendectomy 04/2012 Surgical History genito-urinary tract surgery; cyst drain ed on ovary 04/2012 Surgical History coronary angiography (Aditya) 06/2012 Surgical History adenoidectomy 05/2013 Surgical History arthroscopic knee surgery-right knee Surgical History otolaryngologic surgery-voca l cord surgery for paralyzed vocal cords Surgical History tonsillectomy Hospitalization History N/V, dehydration, hypoxia, elevated troponin 02/2012 Hospitalization History appendicitis-in the hospital x 3 day s 04/2012 Hospitalization History [facility] [place]- Right wrist injury 03/29/2018
--- OUTSIDE RECORDS SUMMARY | 2020-04-09 00:01 | XMS REPORT ---
Author Author Kateryna Turner Doctor Organization [facility] Address Unknown Phone Unavailable Care Team Providers Care Hospice Clinical Manager Name Role Phone Migration, Doctor Unavailable Unavailable PROBLEMS Type Condition ICD9-CM Code [id number] Code Onset Dates Condition S tatus SNOMED Code Problem Irregular menses N92.6 Active 801 01324 Problem Migraine with aura and without status migrainosu s, not intractable G43.109 Active 4727134 Problem Uncontrolled type 2 diabetes mellitus with hyperglycemia E11.65 Active 656652499 Problem Morbid obesity due to excess calories E66.01 Active 040365707 Problem RLS (restless legs syndrome) G25.81 A ctive 19203035 Problem Morbid obesity E66.01 Active 26109 6002 ALLERGIES No Information ENCOUNTERS Encounter Location Date Diagnosis [facility] [address] [id number] [address] [place] [id number] 30 Feb, 2020 [facility] [address] [id number] [address] [place] [phone] 15 Feb, 2020 Encounter for screening labo ratory testing for COVID-[address] [facility] [id number] [address] [place] [phone] [address], [address] [facility] [id number] [address] [place] [address] January, [facility] [address] [id number] [address] [place] [address] January, BMI 50.0-59.9, adult Z68.43 and Vomiting, unspecified R11.10 [facility] [address] [id number] [address] [place] [phone] [address], [address] [facility] [id number] [address] [place] [address] Dec, [facility] [id number] [place] [id number] [address] [facility] [address] [id number] [address] [place] [id number] 23 Dec, 2019 Uncontrolled type 2 diabetes mellitus with hyperglycemia E11.65 [facility] [address] [id number] [address] [place] [phone] [address], [address] [facility] [address] [id number] [address] [place] [phone] [address], [address] [facility] [address] [id number] [address] [place] [phone] [address], [address] [facility] [address] [id number] [address] [place] [id number] [address], [address] [facility] [address] [id number] [address] [place] [phone] [address], [address] [facility] [address] [id number] [address] [place] [address] Nov, [facility] [address] [id number] [address] [place] [address] Nov, RLS (restless legs syndrome) G25.81 [facility] [address] [id number] [address] [place] [id number] 15 Oct, 2019 [facility] [address] [id number] [address] [place] [id number] 09 Oct, [address] [facility] [address] [id number] [address] [place] [phone] [address], [address] [facility] [address] [facility] [id number] [address] [place] [id number] [address], [address] [facility] [address] [facility] [id number] [address] [place] [phone] [address], [address] [facility] [address] [id number] [address] [place] [phone] [address], [address] [facility] [address] [id number] [address] [place] [id number] 10 Sep, 2019 Pneumonia of left lower lobe due to infectious organism J18.9 and Migraine with aura and without status migrainosus, not intractable G43.109 [facility] [address] [id number] [address] [place] [id number] Sep, [facility] [address] [id number] [address] [place] [address] Sep, [facility] [address] [id number] [address] [place] [address] Sep, [facility] [address] [id number] [address] [place] [address] Sep, [facility] [address] [id number] [address] [place] [phone] Sep, Pneumonia of left lower lobe due to infectious organism J18.9 and Migraine with aura and without status migrainosus, not intractable G43.109 [facility] [address] [id number] [address] [place] [address] Aug, Irregular menses N92.6 ; Wel l woman exam Z01.419 ; Pelvic cramping R10.2 and Left breast lump N63.20 [facility] [address] [id number] [address] [place] [address] Aug, [facility] [address] [id number] [address] [place] [address] Aug, Well woman exam Z01.419 ; Le ft breast lump N63.20 ; Irregular menses N92.6 ; Encounter for immunization Z23 ; Pelvic cramping R10.2 and Screening for cervical cancer Z12.4 [facility] [address] [id number] [address] [place] [phone] Aug, [facility] [address] [id number] [address] [place] [phone] Aug, [place] [id number] [facility] [id number] [address] [place] [phone] Aug, [facility] [address] [facility] [id number] [address] [place] [phone] Jul, [facility] [address] [facility] [id number] [address] [place] [phone] Jun, [facility] [address] [facility] [id number] [place] [phone] Jun, [facility] [address] [facility] [id number] [address] [place] [address] Jun, [facility] [address] [facility] [id number] [place] [address] Jun, BMI 50.0-59.9, adult Z68.43 [facility] [address] [facility] [id number] [address] [place] [address] Jun, [facility] [address] [facility] [id number] [address] [place] [phone] May, Acute non-recurrent sinusiti s, unspecified location J01.90 ; Diarrhea, unspecified R19.7 ; Vomiting, unspecified R11.10 and Morbid obesity E66.01 [facility] [address] [facility] [id number] [address] [place] [phone] Apr, [facility] [address] [id number] [address] [place] [address] Apr, Anemia due to other cause, n ot classified D64.89 and D-dimer, elevated R79.89 [facility] [address] [facility] [id number] [address] [place] [phone] Apr, [facility] [id number] [address] [place] [address] Apr, [facility] [address] [facility] [id number] [address] [place] [address] Mar, Anemia due to other cause, n ot classified D64.89 and D-dimer, elevated R79.89 [facility] [address] [id number] [address] [place] [address] Mar, Leg edema, right R60.0 ; Hig h risk medication use Z79.899 and Morbid obesity E66.01 [facility] [address] [facility] [id number] [address] [place] [address] Mar, BMI 50.0-59.9, adult Z68.43 [facility] [address] [id number] [address] [place] [address] Mar, [place] [address] [facility] [id number] [address] [place] [address] January, Uncontrolled type 2 diabetes mellitus with hyperglycemia E11.65 ; RLS (restless legs syndrome) G25.81 and Morbid obesity E66.01 [place] [address] [facility] [id number] [address] [place] [address] Oct, Lipoma of right lower extrem ity D17.23 [place] [address] [id number] [address] [place] [address] Oct, Lipoma of right lower extrem ity D17.23 [facility] [address] [id number] [address] [place] [address] Sep, [facility] [address] [id number] [address] [place] [address] Sep, [facility] [address] [id number] [address] [place] [address] Sep, [facility] [address] [id number] [address] [place] [address] Sep, [facility] [address] [facility] [id number] [address] [place] [address] Sep, [facility] [address] [facility] [id number] [address] [place] [address] Aug, Uncontrolled type 2 diabetes mellitus with hyperglycemia E11.65 ; Morbid obesity due to excess calories E66.01 ; Lipoma of torso D17.1 and BMI 50.0-59.9, adult Z68.43 [facility] [address] [id number] [address] [place] [address] Jun, Encounter for immunization Z 23 [facility] [address] [id number] [address] [place] [address] Jul, [facility] [address] [id number] [address] [place] [address] Jun, Encounter for immunization Z 23 [facility] [address] [id number] [address] [place] [address] May, [facility] [address] [id number] [address] [place] [phone] Jun, Encounter for immunization Z 23 [facility] [address] [id number] [address] [place] [phone] May, [facility] [address] [id number] [address] [place] [phone] May, [facility] [address] [id number] [address] [place] [phone] Apr, [facility] [address] [id number] [address] [place] [phone] Feb, [facility] [address] [id number] [address] [place] [phone] Feb, [facility] [address] [id number] [address] [place] [phone] Feb, [facility] [address] [id number] [address] [place] [phone] January, [facility] [address] [id number] [address] [place] [address] January, [facility] [address] [id number] [address] [place] [phone] Dec, [facility] [address] [id number] [address] [place] [address], [place] [address] Dec, [facility] [address] [id number] [address] [place] [address], [place] [address] Nov, [facility] [address] [id number] [address] [place] [address], [place] [address] Nov, [facility] [address] [id number] [address] [place] [address], [place] [address] Nov, [facility] [address] [id number] [address] [place] [address], [place] [address] Nov, [facility] [address] [id number] [address] [place] [address], [place] [address] Nov, [facility] [address] [id number] [address] [place] [address], [place] [address] Nov, [facility] [address] [id number] [address] [place] [address], [place] [address] Nov, [facility] [address] [id number] [address] [place] [address], [place] [address] Oct, [facility] [address] [id number] [address] [place] [address], [place] [address] Oct, [facility] [address] [id number] [address] [place] [address], [place] [address] Oct, [facility] [address] [id number] [address] [place] [address], [place] [address] Oct, [facility] [address] [id number] [address] [place] [address], [place] [address] Oct, [facility] [address] [id number] [address] [place] [address], [place] [address] Sep, [facility] [address] [id number] [address] [place] [address], [place] [address] Sep, [facility] [address] [id number] [address] [place] [address], [place] [address] Sep, [facility] [address] [id number] [address] [place] [address], [place] [address] Sep, [facility] [address] [id number] [address] [place] [address], [place] [address] Sep, [facility] [address] [id number] [address] [place] [address], [place] [address] Sep, [facility] [address] [id number] [address] [place] [address], [place] [address] Sep, [facility] [address] [id number] [address] [place] [address], [place] [address] Sep, [facility] [address] [id number] [address] [place] [address], [place] [address] Sep, [facility] [address] [id number] [address] [place] [address], [place] [address] Sep, [facility] [address] [id number] [address] [place] [address], [place] [address] Aug, [facility] [address] [id number] [address] [place] [address], [place] [address] Aug, [facility] [address] [id number] [address] [place] [address], [place] [address] Aug, [facility] [address] [id number] [address] [place] [address], [place] [address] Aug, [facility] [address] [id number] [address] [place] [address], [place] [address] Aug, [facility] [address] [id number] [address] [place] [address], [place] [address] Aug, [facility] [address] [id number] [address] [place] [address], [place] [address] Aug, [facility] [address] [id number] [address] [place] [address], [place] [address] Aug, [facility] [address] [id number] [address] [place] [address], [place] [address] Aug, [facility] [address] [id number] [address] [place] [address], [place] [address] Aug, [facility] [address] [id number] [address] [place] [address], [place] [address] Aug, [facility] [address] [id number] [address] [place] [address], [place] [address] Aug, [facility] [address] [id number] [address] [place] [address], [place] [address] Aug, [facility] [address] [id number] [address] [place] [address], [place] [address] Aug, [facility] [address] [id number] [address] [place] [address], [place] [address] Aug, [facility] [address] [id number] [address] [place] [address], [place] [address] Aug, [facility] [address] [id number] [address] [place] [address], [place] [address] Aug, [facility] [address] [id number] [address] [place] [address], [place] [address] Aug, [facility] [address] [id number] [address] [place] [address], [place] [address] Aug, [facility] [address] [id number] [address] [place] [address], [place] [address] Aug, [facility] [address] [id number] [address] [place] [address], [place] [address] Aug, [facility] [address] [id number] [address] [place] [address], [place] [address] Aug, [facility] [address] [id number] [address] [place] [address], [place] [address] 05 Aug, 2014 [facility] [address] [id number] [address] [place] [address], [place] [address] 05 Aug, 2014 [facility] [address] [id number] [address] [place] [address], [place] [address] 07 Jul, 2014 [facility] [address] [id number] [address] [place] [address], [place] [address] 07 Jul, 2014 [facility] [address] [id number] [address] [place] [address], [place] [address] 27 Jun, 2014 [facility] [address] [id number] [address] [place] [address], [place] [address] 27 Jun, 2014 [facility] [address] [id number] [address] [place] [address], [place] [address] 17 Jun, 2014 [facility] [address] [id number] [address] [place] [address], [place] [address] 17 Jun, 2014 [facility] [address] [id number] [address] [place] [address], [place] [address] 15 Jun, 2014 [facility] [address] [id number] [address] [place] [address], [place] [address] 15 Jun, 2014 [facility] [address] [id number] [address] [place] [address], [place] [address] 14 Jun, 2014 [facility] [address] [id number] [address] [place] [address], [place] [address] 14 Jun, 2014 [facility] [address] [id number] [address] [place] [address] 13 Jun, 2014 [facility] [address] [id number] [address] [place] [address] 13 Jun, 2014 [facility] [address] [id number] [address] [place] [address], [place] [address] 13 Jun, 2014 [facility] [address] [id number] [address] [place] [address], [place] [address] 13 Jun, 2014 [facility] [address] [id number] [address] [place] [address], [place] [address] 06 Jun, 2014 [facility] [address] [id number] [facility] [place] [address] Jun, [facility] [address] [id number] [facility] [place] [address] May, 2013 [facility] [address] [id number] [facility] [place] [address] May, 2013 [facility] [address] [id number] [address] [place] [address], [place] [address] May, 2013 [facility] [address] [id number] [address] [place] [address], [place] [address] May, 2013 [facility] [address] [id number] [address] [place] [address], [place] [address] May, 2013 [facility] [address] [id number] [address] [place] [address], [place] [address] May, 2013 [facility] [address] [id number] [address] [place] [address], [place] [address] May, 2013 [facility] [address] [id number] [address] [place] [address], [place] [address] May, [facility] [address] [id number] [address] [place] [address], [place] [address] Apr, [facility] [address] [id number] [address] [place] [address], [place] [address] Apr, [facility] [address] [id number] [address] [place] [address], [place] [address] Apr, [facility] [address] [id number] [address] [place] [address], [place] [address] Apr, [facility] [address] [id number] [address] [place] [address], [place] [address] Apr, [facility] [address] [id number] [address] [place] [address], [place] [address] Apr, [facility] [address] [id number] [address] [place] [address], [place] [address] Apr, [facility] [address] [id number] [address] [place] [address], [place] [address] Apr, [facility] [address] [id number] [address] [place] [address], [place] [address] Apr, [facility] [address] [id number] [address] [place] [address], [place] [address] Mar, [facility] [address] [id number] [address] [place] [address], [place] [address] Mar, [facility] [address] [id number] [address] [place] [address], [place] [address] Mar, [facility] [address] [id number] [address] [place] [address], [place] [address] Feb, [facility] [address] [id number] [address] [place] [address], [place] [address] Feb, [facility] [address] [id number] [address] [place] [address], [place] [address] Feb, [facility] [address] [id number] [address] [place] [address], [place] [address] Feb, [facility] [address] [id number] [address] [place] [address], [place] [address] Feb, [facility] [address] [id number] [address] [place] [address], [place] [address] Feb, [facility] [address] [id number] [address] [place] [address], [place] [address] 16 Feb, 2014 [facility] [address] [id number] [address] [place] [address], [place] [address] Feb, [facility] [address] [id number] [address] [place] [address], [place] [address] Feb, [facility] [address] [id number] [address] [place] [address], [place] [address] 16 Feb, 2014 [facility] [address] [id number] [address] [place] [address], [place] [address] Feb, [facility] [address] [id number] [facility] [place] [address] Feb, [facility] [address] [id number] [address] [place] [address], [place] [address] Feb, [facility] [address] [id number] [address] [place] [address], [place] [address] Feb, [facility] [address] [id number] [address] [place] [address], [place] [address] Feb, [facility] [address] [id number] [address] [place] [address], [place] [address] Feb, [facility] [address] [id number] [address] [place] [address], [place] [address] January, [facility] [address] [id number] [address] [place] [address], [place] [address] January, [facility] [address] [id number] [address] [place] [address], [place] [address] January, [facility] [address] [id number] [address] [place] [address], [place] [address] January, [facility] [address] [id number] [address] [place] [address], [place] [address] January, [facility] [address] [id number] [address] [place] [address], [place] [address] January, [facility] [address] [id number] [address] [place] [address], [place] [address] January, [facility] [address] [id number] [address] [place] [address], [place] [address] January, [facility] [address] [id number] [address] [place] [address], [place] [address] January, [facility] [address] [id number] [address] [place] [address], [place] [address] January, [facility] [address] [id number] [facility] [place] [address] January, [facility] [address] [id number] [facility] [place] [address] January, [facility] [address] [id number] [facility] [place] [address] January, [facility] [address] [id number] [facility] [place] [address] January, [facility] [address] [id number] [facility] [place] [address] January, [facility] [address] [id number] [address] [place] [address], [place] [address] January, [facility] [address] [id number] [address] [place] [address], [place] [address] January, [facility] [address] [id number] [address] [place] [address], [place] [address] January, [facility] [address] [id number] [address] [place] [address], [place] [address] January, [facility] [address] [id number] [address] [place] [address], [place] [address] January, [facility] [address] [id number] [address] [place] [address], [place] [address] January, [facility] [address] [id number] [address] [place] [address], [place] [address] January, [facility] [address] [id number] [address] [place] [address], [place] [address] January, [facility] [address] [id number] [address] [place] [address], [place] [address] January, [facility] [address] [id number] [address] [place] [address], [place] [address] January, [facility] [address] [id number] [address] [place] [address], [place] [address] January, [facility] [address] [id number] [facility] [place] [address] Dec, [facility] [address] [id number] [facility] [place] [address] Dec, [facility] [address] [id number] [address] [place] [address], [place] [address] Dec, [facility] [address] [id number] [address] [place] [address], [place] [address] Dec, [facility] [address] [id number] [address] [place] [address], [place] [address] Dec, [facility] [address] [id number] [address] [place] [address], [place] [address] Dec, [facility] [address] [id number] [address] [place] [address], [place] [address] Dec, [facility] [address] [id number] [address] [place] [address], [place] [address] Dec, [facility] [address] [id number] [address] [place] [address], [place] [address] Dec, [facility] [address] [id number] [address] [place] [address], [place] [address] Dec, [facility] [address] [id number] [address] [place] [address], [place] [address] Dec, [facility] [address] [id number] [address] [place] [address], [place] [address] Dec, [facility] [address] [id number] [address] [place] [address], [place] [address] Dec, [facility] [address] [id number] [address] [place] [address], [place] [address] Dec, [facility] [address] [id number] [address] [place] [address], [place] [address] Dec, [facility] [address] [id number] [facility] [place] [address] 09 Dec, 2013 [facility] [address] [id number] [address] [place] [address], [place] [address] Dec, [facility] [address] [id number] [address] [place] [address], [place] [address] Dec, [facility] [address] [id number] [address] [place] [address], [place] [address] Dec, [facility] [address] [id number] [address] [place] [address], [place] [address] Dec, [facility] [address] [id number] [address] [place] [address], [place] [address] Dec, [facility] [address] [id number] [address] [place] [address], [place] [address] Dec, [facility] [address] [id number] [address] [place] [address], [place] [address] Nov, [facility] [address] [id number] [address] [place] [address], [place] [address] Nov, [facility] [address] [id number] [address] [place] [address], [place] [address] Nov, [facility] [address] [id number] [address] [place] [address], [place] [address] Nov, [facility] [address] [id number] [address] [place] [address], [place] [address] 24 Nov, 2013 [facility] [address] [id number] [address] [place] [address], [place] [address] 24 Nov, 2013 [facility] [address] [id number] [address] [place] [address], [place] [address] Nov, [facility] [address] [id number] [address] [place] [address], [place] [address] 22 Nov, 2013 [facility] [address] [id number] [address] [place] [address], [place] [address] 18 Nov, 2013 [facility] [address] [id number] [facility] [place] [address] 18 Nov, 2013 [facility] [address] [id number] [address] [place] [address], [place] [address] 18 Nov, 2013 [facility] [address] [id number] [address] [place] [address], [place] [address] 18 Nov, 2013 [facility] [address] [id number] [address] [place] [address], [place] [address] 14 Nov, 2013 [facility] [address] [id number] [address] [place] [address], [place] [address] 14 Nov, 2013 [facility] [address] [id number] [address] [place] [address], [place] [address] Nov, [facility] [address] [id number] [address] [place] [address], [place] [address] Nov, [facility] [address] [id number] [address] [place] [address], [place] [address] Oct, [facility] [address] [id number] [address] [place] [address], [place] [address] Oct, [facility] [address] [id number] [address] [place] [address], [place] [address] 24 Oct, 2013 [facility] [address] [id number] [address] [place] [address], [place] [address] Oct, [facility] [address] [id number] [address] [place] [address], [place] [address] Oct, [facility] [address] [id number] [address] [place] [address], [place] [address] Oct, [facility] [address] [id number] [address] [place] [address], [place] [address] Oct, [facility] [address] [id number] [address] [place] [address], [place] [address] Oct, [facility] [address] [id number] [facility] [place] [address] Oct, [facility] [address] [id number] [address] [place] [address], [place] [address] Oct, [facility] [address] [id number] [address] [place] [address], [place] [address] Oct, [facility] [address] [id number] [address] [place] [address], [place] [address] Oct, [facility] [address] [id number] [address] [place] [address], [place] [address] Oct, [facility] [address] [id number] [address] [place] [address], [place] [address] Oct, [facility] [address] [id number] [address] [place] [address], [place] [address] Oct, [facility] [address] [id number] [address] [place] [address], [place] [address] Sep, [facility] [address] [id number] [address] [place] [address], [place] [address] Sep, [facility] [address] [id number] [address] [place] [address], [place] [address] Sep, [facility] [address] [id number] [address] [place] [address], [place] [address] Sep, [facility] [address] [id number] [address] [place] [address], [place] [address] Sep, [facility] [address] [id number] [address] [place] [address], [place] [address] Sep, [facility] [address] [id number] [address] [place] [address], [place] [address] Sep, [facility] [address] [id number] [address] [place] [address], [place] [address] Sep, [facility] [address] [id number] [address] [place] [address], [place] [address] Sep, [facility] [address] [id number] [address] [place] [address], [place] [address] Sep, [facility] [address] [id number] [address] [place] [address], [place] [address] Sep, [facility] [address] [id number] [address] [place] [address], [place] [address] Sep, [facility] [address] [id number] [address] [place] [address], [place] [address] Sep, [facility] [address] [id number] [address] [place] [address], [place] [address] Aug, [facility] [address] [id number] [address] [place] [address], [place] [address] Aug, [facility] [address] [id number] [address] [place] [address], [place] [address] Aug, [facility] [address] [id number] [address] [place] [address], [place] [address] Aug, [facility] [address] [id number] [address] [place] [address], [place] [address] Aug, [facility] [address] [id number] [address] [place] [address], [place] [address] 17 Aug, 2013 [facility] [address] [id number] [address] [place] [address], [place] [address] 16 Aug, 2013 [facility] [address] [id number] [address] [place] [address], [place] [address] 16 Aug, 2013 [facility] [address] [id number] [address] [place] [address], [place] [address] Aug, [facility] [address] [id number] [address] [place] [address], [place] [address] Aug, [facility] [address] [id number] [address] [place] [address], [place] [address] 10 Aug, 2013 [facility] [address] [id number] [address] [place] [address], [place] [address] 10 Aug, 2013 [facility] [address] [id number] [address] [place] [address], [place] [address] 02 Aug, 2013 [facility] [address] [id number] [address] [place] [address], [place] [address] 02 Aug, 2013 [facility] [address] [id number] [address] [place] [address], [place] [address] 19 Jul, 2013 [facility] [address] [id number] [address] [place] [address], [place] [address] 19 Jul, 2013 [facility] [address] [id number] [address] [place] [address], [place] [address] 18 Jul, 2013 [facility] [address] [id number] [address] [place] [address], [place] [address] 18 Jul, 2013 [facility] [address] [id number] [address] [place] [address], [place] [address] 14 Jul, 2013 [facility] [address] [id number] [address] [place] [address], [place] [address] 14 Jul, 2013 [facility] [address] [id number] [address] [place] [address], [place] [address] 14 Jul, 2013 [facility] [address] [id number] [address] [place] [address], [place] [address] 14 Jul, 2013 [facility] [address] [id number] [address] [place] [address], [place] [address] 07 Jul, 2013 [facility] [address] [id number] [address] [place] [address], [place] [address] 07 Jul, 2013 [facility] [address] [id number] [address] [place] [address], [place] [address] 06 Jul, 2013 [facility] [address] [id number] [address] [place] [address], [place] [address] 06 Jul, 2013 [facility] [address] [id number] [address] [place] [address] 05 Jul, 2013 [facility] [address] [id number] [address] [place] [address], [place] [address] 05 Jul, 2013 [facility] [address] [id number] [address] [place] [address], [place] [address] 23 Jun, 2013 [facility] [address] [id number] [address] [place] [address], [place] [address] 23 Jun, 2013 [facility] [address] [id number] [address] [place] [address], [place] [address] 15 Jun, 2013 [facility] [address] [id number] [address] [place] [address], [place] [address] 15 Jun, 2013 [facility] [address] [id number] [address] [place] [address], [place] [address] 14 Jun, 2013 [facility] [address] [id number] [address] [place] [address], [place] [address] 24 May, 2013 [facility] [address] [id number] [address] [place] [address], [place] [address] 20 May, 2012 [facility] [address] [id number] [address] [place] [address], [place] [address] 20 May, 2012 [facility] [address] [id number] [address] [place] [address], [place] [address] 20 May, 2012 [facility] [address] [id number] [address] [place] [address], [place] [address] 19 May, 2012 [facility] [address] [id number] [address] [place] [address], [place] [address] 13 May, 2012 [facility] [address] [id number] [address] [place] [address], [place] [address] 12 May, 2012 [facility] [address] [id number] [address] [place] [address], [place] [address] 12 May, 2012 [facility] [address] [id number] [address] [place] [address], [place] [address] 11 May, 2012 [facility] [address] [id number] [address] [place] [address], [place] [address] May, 2012 [facility] [address] [id number] [address] [place] [address], [place] [address] 11 May, 2012 [facility] [address] [id number] [address] [place] [address], [place] [address] 09 May, 2012 [facility] [address] [id number] [address] [place] [address], [place] [address] 05 May, 2012 [facility] [address] [id number] [address] [place] [address], [place] [address] 04 May, 2012 [facility] [address] [id number] [address] [place] [address], [place] [address] May, [facility] [address] [id number] [address] [place] [address], [place] [address] Apr, [facility] [address] [id number] [address] [place] [address], [place] [address] Apr, [facility] [address] [id number] [address] [place] [address], [place] [address] Apr, [facility] [address] [id number] [address] [place] [address], [place] [address] Apr, [facility] [address] [id number] [address] [place] [address], [place] [address] Apr, [facility] [address] [id number] [address] [place] [address], [place] [address] Apr, [facility] [address] [id number] [address] [place] [address], [place] [address] Apr, [facility] [address] [id number] [address] [place] [address], [place] [address] Apr, [facility] [address] [id number] [address] [place] [address], [place] [address] Apr, [facility] [address] [id number] [address] [place] [address], [place] [address] Mar, [facility] [address] [id number] [address] [place] [address], [place] [address] Mar, 2012 [facility] [address] [id number] [address] [place] [address], [place] [address] Mar, 2012 [facility] [address] [id number] [address] [place] [address], [place] [address] Mar, [facility] [address] [id number] [address] [place] [address], [place] [address] Mar, [facility] [address] [id number] [address] [place] [address], [place] [address] Mar, [facility] [address] [id number] [address] [place] [address], [place] [address] Mar, [facility] [address] [id number] [address] [place] [address], [place] [address] Mar, [facility] [address] [id number] [address] [place] [address], [place] [address] Mar, [facility] [address] [id number] [address] [place] [address], [place] [address] Mar, [facility] [address] [id number] [address] [place] [address], [place] [address] Mar, [facility] [address] [id number] [address] [place] [address], [place] [address] Feb, [facility] [address] [id number] [address] [place] [address], [place] [address] Feb, [facility] [address] [id number] [address] [place] [address], [place] [address] Feb, [facility] [address] [id number] [address] [place] [address], [place] [address] Feb, [facility] [address] [id number] [address] [place] [address], [place] [address] Feb, [facility] [address] [id number] [address] [place] [address], [place] [address] Feb, [facility] [address] [id number] [address] [place] [address], [place] [address] Feb, [facility] [address] [id number] [address] [place] [address], [place] [address] Feb, [facility] [address] [id number] [address] [place] [address], [place] [address] Feb, [facility] [address] [id number] [address] [place] [address], [place] [address] January, [facility] [address] [id number] [address] [place] [address], [place] [address] January, [facility] [address] [id number] [address] [place] [address], [place] [address] January, [facility] [address] [id number] [address] [place] [address], [place] [address] January, [facility] [address] [id number] [address] [place] [address], [place] [address] January, [facility] [address] [id number] [address] [place] [address], [place] [address] January, [facility] [address] [id number] [address] [place] [address], [place] [address] January, [facility] [address] [id number] [address] [place] [address], [place] [address] January, [facility] [address] [id number] [address] [place] [address], [place] [address] January, [facility] [address] [id number] [address] [place] [address], [place] [address] January, [facility] [address] [id number] [address] [place] [address], [place] [address] January, [facility] [address] [id number] [address] [place] [address], [place] [address] January, [facility] [address] [id number] [address] [place] [address], [place] [address] January, [facility] [address] [id number] [address] [place] [address], [place] [address] January, [facility] [address] [id number] [address] [place] [address], [place] [address] January, [facility] [address] [id number] [address] [place] [address], [place] [address] January, [facility] [address] [id number] [address] [place] [address], [place] [address] January, [facility] [address] [id number] [address] [place] [address], [place] [address] January, [facility] [address] [id number] [address] [place] [address], [place] [address] January, [facility] [address] [id number] [address] [place] [address], [place] [address] January, [facility] [address] [id number] [address] [place] [address], [place] [address] January, [facility] [address] [id number] [address] [place] [address], [place] [address] January, [facility] [address] [id number] [address] [place] [address], [place] [address] January, [facility] [address] [id number] [address] [place] [address], [place] [address] Dec, [facility] [address] [id number] [address] [place] [address], [place] [address] 18 Dec, 2012 [facility] [address] [id number] [address] [place] [address], [place] [address] 17 Dec, 2012 [facility] [address] [id number] [address] [place] [address], [place] [address] 16 Dec, 2012 [facility] [address] [id number] [address] [place] [address], [place] [address] Dec, [facility] [address] [id number] [address] [place] [address], [place] [address] Nov, [facility] [address] [id number] [address] [place] [address], [place] [address] Oct, [facility] [address] [id number] [address] [place] [address], [place] [address] Oct, [facility] [address] [id number] [address] [place] [address], [place] [address] Oct, [facility] [address] [id number] [address] [place] [address], [place] [address] Oct, [facility] [address] [id number] [address] [place] [address], [place] [address] Oct, [facility] [address] [id number] [address] [place] [address], [place] [address] Sep, [facility] [address] [id number] [address] [place] [address], [place] [address] Sep, [facility] [address] [id number] [address] [place] [address], [place] [address] Sep, [facility] [address] [id number] [address] [place] [address], [place] [address] Aug, [facility] [address] [address] [id number] [address] [place] [address], [place] [address] Aug, [facility] [address] [id number] [address] [place] [address], [place] [address] Aug, [facility] [address] [id number] [address] [place] [address], [place] [address] Aug, [facility] [address] [id number] [address] [place] [address], [place] [address] Jul, [facility] [address] [id number] [address] [place] [address], [place] [address] Jul, [facility] [address] [id number] [address] [place] [address], [place] [address] Jul, [facility] [address] [id number] [address] [place] [address], [place] [address] Jul, [facility] [address] [id number] [address] [place] [address], [place] [address] Jul, [facility] [address] [id number] [address] [place] [address], [place] [address] Jul, [facility] [address] [id number] [address] [place] [id number] Jun, [facility] [address] [id number] [address] [place] [address], [place] [address] Jun, [facility] [address] [id number] [address] [place] [address], [place] [address] Jun, [facility] [address] [id number] [address] [place] [address], [place] [address] Jun, [facility] [address] [id number] [address] [place] [id number] Jun, [facility] [address] [id number] [address] [place] [address] Jun, [facility] [address] [id number] [address] [place] [id number] Jun, [facility] [address] [id number] [address] [place] [id number] 05 Jun, 2012 [facility] [address] [id number] [address] [place] [id number] Jun, [facility] [address] [id number] [address] [place] [address], [place] [address] Jun, [facility] [address] [id number] [address] [place] [id number] 17 May, 2012 [facility] [address] [id number] [address] [place] [address], [place] [address] 08 May, 2012 [facility] [address] [id number] [address] [place] [address], [place] [address] May, [facility] [address] [id number] [address] [place] [address], [place] [address] Apr, [facility] [address] [id number] [address] [place] [address], [place] [address] Apr, [facility] [address] [id number] [address] [place] [address], [place] [address] Apr, [facility] [address] [id number] [address] [place] [address], [place] [address] Apr, [facility] [address] [id number] [address] [place] [address], [place] [address] Apr, [facility] [address] [id number] [address] [place] [address], [place] [address] Apr, [facility] [address] [id number] [address] [place] [address], [place] [address] Apr, [facility] [address] [id number] [address] [place] [address], [place] [address] Apr, [facility] [address] [id number] [address] [place] [address], [place] [address] Apr, [facility] [address] [id number] [address] [place] [address], [place] [address] Mar, [facility] [address] [id number] [address] [place] [address], [place] [address] Mar, [facility] [address] [id number] [address] [place] [address], [place] [address] Mar, [facility] [address] [id number] [address] [place] [address], [place] [address] Mar, [facility] [address] [id number] [address] [place] [address], [place] [address] Feb, [facility] [address] [id number] [address] [place] [address], [place] [address] Feb, [facility] [address] [id number] [address] [place] [address], [place] [address] Feb, [facility] [address] [id number] [address] [place] [address], [place] [address] January, [facility] [address] [id number] [address] [place] [address], [place] [address] January, [facility] [address] [id number] [address] [place] [address], [place] [address] January, [facility] [address] [id number] [address] [place] [address], [place] [address] January, [facility] [address] [id number] [address] [place] [address], [place] [address] January, [facility] [address] [id number] [address] [place] [address], [place] [address] Dec, [facility] [address] [id number] [address] [place] [address], [place] [address] Dec, [facility] [address] [id number] [address] [place] [address], [place] [address] Dec, [facility] [address] [id number] [address] [place] [address], [place] [address] Oct, [facility] [address] [id number] [address] [place] [address], [place] [address] Oct, [facility] [address] [id number] [address] [place] [address], [place] [address] Oct, [facility] [address] [id number] [address] [place] [address], [place] [address] Sep, [facility] [address] [id number] [address] [place] [address], [place] [address] Sep, [facility] [address] [id number] [address] [place] [address], [place] [address] Aug, [facility] [address] [id number] [address] [place] [address], [place] [address] 08 Jul, 2011 [facility] [address] [id number] [address] [place] [address], [place] [address] 08 Jul, 2011 [facility] [address] [id number] [address] [place] [address], [place] [address] Mar, [facility] [address] [id number] [address] [place] [address], [place] [address] Aug, [facility] [address] [id number] [address] [place] [address], [place] [address] 10 Jul, 2010 [facility] [address] [id number] [address] [place] [address], [place] [address] Jul, [facility] [address] [id number] [address] [place] [address], [place] [address] Jul, [facility] [address] [id number] [address] [place] [address], [place] [address] Jul, [facility] [address] [id number] [address] [place] [address], [place] [address] 14 Jun, 2010 [facility] [address] [id number] [address] [place] [address], [place] [address] Jun, [facility] [address] [id number] [address] [place] [address], [place] [address] Apr, [facility] [address] [id number] [address] [place] [address], [place] [address] Aug, [facility] [address] [id number] [address] [place] [address], [place] [address] Jul, [facility] [address] [id number] [address] [place] [address], [place] [address] Jul, [facility] [address] [id number] [address] [place] [address], [place] [address] 13 Jul, 2009 [facility] [address] [id number] [address] [place] [id number] 23 Jun, 2009 [facility] [address] [facility] [id number] [address] [place] [id number] [address] [facility] [address] [facility] [id number] [address] [place] [id number] [address], [address] [facility] [address] [facility] [id number] [address] [place] [id number] Nov, [facility] [address] [facility] [id number] [address] [place] [id number] [address], [address] [facility] [address] [facility] [id number] [address] [place] [id number] Aug, [facility] [address] [facility] [id number] [address] [place] [id number] Aug, [facility] [address] [facility] [id number] [address] [place] [id number] 28 Jun, 2008 IMMUNIZATIONS No Known Immunizations SOCIAL HISTORY Never Assessed REASON FOR VISIT PLAN OF CARE VITAL SIGNS MEDICATIONS Unknown Medications RESULTS No Results PROCEDURES No Known procedures INSTRUCTIONS MEDICATIONS ADMINISTERED No Known Medications MEDICAL [...] x 3 day s 04/2012 Hospitalization History [facility] [place]- Right wrist injury 03/29/2018
--- OUTSIDE RECORDS SUMMARY | 2020-04-09 00:01 | XMS REPORT ---
Author Author Kateryna LOPEZ [facility] Address [address] [place] [address] Care Team Providers Care Electrical Cad Designer Name Role Phone JESSE LOPEZ Unavailable PROBLEMS Type Condition ICD9-CM Code SXA08-FC Code Onset Dates Condition S tatus SNOMED Code Problem Irregular menses N92.6 Active 801 38860 Problem Migraine with aura and without status migrainosu s, not intractable G43.109 Active 8916264 Problem Uncontrolled type 2 diabetes mellitus with hyperglycemia E11.65 Active 879155971 Problem Morbid obesity due to excess calories E66.01 Active 171795282 Problem RLS (restless legs syndrome) G25.81 A ctive 16785166 Problem Morbid obesity E66.01 Active 80784 6002 ALLERGIES No Information ENCOUNTERS Encounter Location Date Diagnosis [facility] [address] [id number] [address] [place] [id number] 30 Feb, [address] [facility] [address] [id number] [address] [place] [id number] 15 Feb, 2020 Encounter for screening labo ratory testing for COVID-19 virus Z11.59 [facility] [address] [id number] [address] [place] [phone] 08 Feb, 2020 [facility] [address] [id number] [address] [place] [address] January, [facility] [address] [id number] [address] [place] [address] 31 Jan, 2020 BMI 50.0-59.9, adult Z68.43 and Vomiting, unspecified R11.10 [facility] [address] [id number] [address] [place] [address] 14 Jan, 2020 [facility] [address] [id number] [address] [place] [id number] 27 Dec, 2019 [facility] [address] [id number] [address] [place] [id number] 27 Dec, 2019 [facility] [address] [facility] [id number] [address] [place] [phone] 23 Dec, 2019 Uncontrolled type 2 diabetes mellitus with hyperglycemia E11.65 [facility] [address] [id number] [address] [place] [phone] 07 Dec, 2019 [facility] [address] [id number] [address] [place] [phone] 06 Dec, 2019 [facility] [address] [facility] [id number] [address] [place] [address] Dec, [facility] [address] [facility] [id number] [address] [place] [phone] 30 Nov, 2019 [facility] [address] [id number] [address] [place] [address] Nov, [facility] [address] [id number] [address] [place] [address] Nov, [facility] [address] [facility] [id number] [address] [place] [address] Nov, RLS (restless legs syndrome) G25.81 [facility] [address] [facility] [id number] [address] [place] [id number] 15 Oct, 2019 [facility] [address] [id number] [address] [place] [phone] 09 Oct, 2019 Influenza J11.1 [facility] [address] [facility] [id number] [address] [place] [phone] 16 Sep, 2019 [facility] [address] [facility] [id number] [address] [place] [phone] Sep, [facility] [address] [facility] [id number] [address] [place] [address] 14 Sep, 2019 [facility] [address] [id number] [address] [place] [id number] 13 Sep, 2019 [facility] [address] [id number] [address] [place] [phone] Sep, Pneumonia of left lower lobe due to infectious organism J18.9 and Migraine with aura and without status migrainosus, not intractable G43.109 [facility] [address] [id number] [address] [place] [address] Sep, [facility] [address] [id number] [address] [place] [address] Sep, [facility] [address] [id number] [address] [place] [address] Sep, [facility] [address] [id number] [address] [place] [address] Sep, [facility] [address] [id number] [address] [place] [address] Sep, Pneumonia of left lower lobe due to infectious organism J18.9 and Migraine with aura and without status migrainosus, not intractable G43.109 [facility] [address] [id number] [address] [place] [address] Aug, Irregular menses N92.6 ; Wel l woman exam Z01.419 ; Pelvic cramping R10.2 and Left breast lump N63.20 [place] [address] [id number] [address] [place] [address] Aug, [facility] [address] [id number] [address] [place] [address] Aug, Well woman exam Z01.419 ; Le ft breast lump N63.20 ; Irregular menses N92.6 ; Encounter for immunization Z23 ; Pelvic cramping R10.2 and Screening for cervical cancer Z12.4 [facility] [address] [id number] [address] [place] [address] Aug, [place] [address] [facility] [id number] [address] [place] [address] Aug, [facility] [address] [facility] [id number] [address] [place] [address] Aug, [facility] [address] [facility] [id number] [address] [place] [address] Jul, [facility] [id number] [place] [phone] Jun, [facility] [id number] [place] [address] Jun, [facility] [address] [address] Jun, [facility] [address] [id number] [address] [place] [address] Jun, BMI 50.0-59.9, adult Z68.43 [facility] [address] [id number] [address] [place] [address] Jun, [facility] [address] [id number] [address] [place] [address] May, Acute non-recurrent sinusiti s, unspecified location J01.90 ; Diarrhea, unspecified R19.7 ; Vomiting, unspecified R11.10 and Morbid obesity E66.01 [facility] [id number] [place] [address] Apr, [facility] [address] [id number] [address] [place] [address] Apr, Anemia due to other cause, n ot classified D64.89 and D-dimer, elevated R79.89 [facility] [address] [id number] [address] [place] [address] Apr, [facility] [address] [id number] [address] [place] [address] Apr, [facility] [address] [id number] [address] [place] [address] Mar, Anemia due to other cause, n ot classified D64.89 and D-dimer, elevated R79.89 [place] [address] [id number] [address] [place] [address] Mar, Leg edema, right R60.0 ; Hig h risk medication use Z79.899 and Morbid obesity E66.01 [place] [address] [address] Mar, BMI 50.0-59.9, adult Z68.43 [place] [address] [address] Mar, [place] [address] [address] January, Uncontrolled type 2 diabetes mellitus with hyperglycemia E11.65 ; RLS (restless legs syndrome) G25.81 and Morbid obesity E66.01 [place] [address] [id number] [address] [place] [address] Oct, Lipoma of right lower extrem ity D17.23 [place] [address] [id number] [address] [place] [address] Oct, Lipoma of right lower extrem ity D17.23 [place] [address] [id number] [address] [place] [address] Sep, [facility] [address] [id number] [address] [place] [address] Sep, [facility] [address] [id number] [address] [place] [address] Sep, [facility] [address] [id number] [address] [place] [address] Sep, [facility] [address] [id number] [address] [place] [address] Sep, [facility] [address] [id number] [address] [place] [address] Aug, Uncontrolled type 2 diabetes mellitus with hyperglycemia E11.65 ; Morbid obesity due to excess calories E66.01 ; Lipoma of torso D17.1 and BMI 50.0-59.9, adult Z68.43 [facility] [address] [id number] [address] [place] [address] Jun, Encounter for immunization Z 23 [facility] [address] [id number] [address] [place] [address] Jul, [facility] [address] [facility] [id number] [address] [place] [address] Jun, Encounter for immunization Z 23 [facility] [address] [id number] [address] [place] [address] 30 May, 2016 [facility] [address] [facility] [id number] [address] [place] [address] Jun, Encounter for immunization Z 23 [facility] [address] [id number] [address] [place] [id number] May, [facility] [address] [id number] [address] [place] [address] May, [facility] [address] [facility] [id number] [address] [place] [address] Apr, [facility] [address] [id number] [address] [place] [address] Feb, [facility] [address] [id number] [address] [place] [address] Feb, [facility] [address] [id number] [address] [place] [address] Feb, [facility] [address] [facility] [id number] [address] [place] [address] January, [facility] [address] [facility] [id number] [address] [place] [address] January, [facility] [address] [id number] [address] [place] [address], [place] [address] 14 Dec, 2014 [facility] [address] [id number] [address] [place] [address], [place] [address] Dec, [facility] [address] [id number] [address] [place] [address], [place] [address] Nov, [facility] [address] [id number] [address] [place] [address], [place] [address] Nov, [facility] [address] [id number] [address] [place] [address], [place] [address] Nov, [facility] [address] [id number] [address] [place] [address], [place] [address] Nov, [facility] [address] [id number] [address] [place] [address], [place] [address] Nov, [facility] [address] [id number] [address] [place] [address], [place] [address] Nov, [facility] [address] [id number] [address] [place] [address], [place] [address] Nov, [facility] [address] [id number] [address] [place] [address], [place] [address] Oct, [facility] [address] [id number] [address] [place] [address], [place] [address] Oct, [facility] [address] [id number] [address] [place] [phone] Oct, [facility] [address] [id number] [address] [place] [address], [place] [address] Oct, [facility] [address] [id number] [address] [place] [address], [place] [address] Oct, [facility] [address] [id number] [address] [place] [address], [place] [address] Sep, [facility] [address] [id number] [address] [place] [address] Sep, [facility] [address] [id number] [address] [place] [address], [place] [address] Sep, [facility] [address] [id number] [address] [place] [address], [place] [address] Sep, [facility] [address] [id number] [address] [place] [address], [place] [address] Sep, [facility] [address] [id number] [address] [place] [address], [place] [address] Sep, [facility] [address] [id number] [address] [place] [address], [place] [address] Sep, [facility] [address] [id number] [address] [place] [address], [place] [address] Sep, [facility] [address] [id number] [address] [place] [address], [place] [address] Sep, [facility] [address] [id number] [address] [place] [address], [place] [address] Sep, [facility] [address] [id number] [address] [place] [address], [place] [address] Aug, [facility] [address] [id number] [address] [place] [address], [place] [address] Aug, [facility] [address] [id number] [address] [place] [address], [place] [address] Aug, [facility] [address] [id number] [address] [place] [address], [place] [address] Aug, [facility] [address] [id number] [address] [place] [address], [place] [address] Aug, [facility] [address] [id number] [address] [place] [address], [place] [address] Aug, [facility] [address] [id number] [address] [place] [address], [place] [address] Aug, [facility] [address] [id number] [address] [place] [address], [place] [address] Aug, [facility] [address] [id number] [address] [place] [address], [place] [address] Aug, [facility] [address] [id number] [address] [place] [address], [place] [address] Aug, [facility] [address] [id number] [address] [place] [address], [place] [address] Aug, [facility] [address] [id number] [address] [place] [address], [place] [address] Aug, [facility] [address] [id number] [address] [place] [address], [place] [address] Aug, [facility] [address] [id number] [address] [place] [address], [place] [address] 18 Aug, 2014 [facility] [address] [id number] [address] [place] [address], [place] [address] 17 Aug, 2014 [facility] [address] [id number] [address] [place] [address], [place] [address] 17 Aug, 2014 [facility] [address] [id number] [address] [place] [address], [place] [address] 16 Aug, 2014 [facility] [address] [id number] [address] [place] [address], [place] [address] 16 Aug, 2014 [facility] [address] [id number] [address] [place] [address], [place] [address] Aug, [facility] [address] [id number] [address] [place] [address], [place] [address] Aug, [facility] [address] [id number] [address] [place] [address], [place] [address] 08 Aug, 2014 [facility] [address] [id number] [address] [place] [address], [place] [address] 08 Aug, 2014 [facility] [address] [id number] [address] [place] [address], [place] [address] 05 Aug, 2014 [facility] [address] [id number] [address] [place] [address], [place] [address] 05 Aug, 2014 [facility] [address] [id number] [address] [place] [address], [place] [address] Jul, [facility] [address] [id number] [address] [place] [address], [place] [address] Jul, [facility] [address] [id number] [address] [place] [address], [place] [address] 27 Jun, 2014 [facility] [address] [id number] [address] [place] [address], [place] [address] 27 Jun, 2014 [facility] [address] [id number] [address] [place] [address], [place] [address] 17 Jun, 2014 [facility] [address] [id number] [address] [place] [address], [place] [address] 17 Jun, 2014 [facility] [address] [id number] [address] [place] [address], [place] [address] 15 Jun, 2014 [facility] [address] [id number] [address] [place] [address], [place] [address] 15 Jun, 2014 [facility] [address] [id number] [address] [place] [address] 14 Jun, 2014 [facility] [address] [id number] [address] [place] [address], [place] [address] 14 Jun, 2014 [facility] [address] [id number] [address] [place] [address] 13 Jun, 2014 [facility] [address] [id number] [address] [place] [address], [place] [address] 13 Jun, 2014 [facility] [address] [id number] [address] [place] [address], [place] [address] 13 Jun, 2014 [facility] [address] [id number] [address] [place] [address], [place] [address] 13 Jun, 2014 [facility] [address] [id number] [address] [place] [address], [place] [address] Jun, [facility] [address] [id number] [address] [place] [address], [place] [address] Jun, [facility] [address] [id number] [address] [place] [address], [place] [address] May, 2013 [facility] [address] [id number] [address] [place] [address], [place] [address] May, 2013 [facility] [address] [id number] [address] [place] [address], [place] [address] May, 2013 [facility] [address] [id number] [address] [place] [address], [place] [address] May, 2013 [facility] [address] [id number] [address] [place] [address], [place] [address] May, 2013 [facility] [address] [id number] [address] [place] [address], [place] [address] May, 2013 [facility] [address] [id number] [address] [place] [address], [place] [address] May, 2013 [facility] [address] [id number] [address] [place] [address], [place] [address] May, [facility] [address] [id number] [address] [place] [address], [place] [address] Apr, [facility] [address] [id number] [address] [place] [address], [place] [address] Apr, [facility] [address] [id number] [address] [place] [address], [place] [address] Apr, [facility] [address] [id number] [address] [place] [address], [place] [address] Apr, [facility] [address] [id number] [address] [place] [address], [place] [address] Apr, [facility] [address] [id number] [address] [place] [address], [place] [address] Apr, [facility] [address] [id number] [facility] [place] [address] Apr, [facility] [address] [id number] [facility] [place] [address] Apr, [facility] [address] [id number] [facility] [place] [address] Apr, [facility] [address] [id number] [address] [place] [address], [place] [address] Mar, [facility] [address] [id number] [address] [place] [address], [place] [address] Mar, [facility] [address] [id number] [address] [place] [address], [place] [address] Mar, [facility] [address] [id number] [address] [place] [address], [place] [address] Feb, [facility] [address] [id number] [address] [place] [address], [place] [address] Feb, [facility] [address] [id number] [address] [place] [address], [place] [address] Feb, [facility] [address] [id number] [address] [place] [address], [place] [address] Feb, [facility] [address] [id number] [address] [place] [address], [place] [address] Feb, [facility] [address] [id number] [address] [place] [address], [place] [address] Feb, [facility] [address] [id number] [address] [place] [address], [place] [address] Feb, [facility] [address] [id number] [address] [place] [address], [place] [address] Feb, [facility] [address] [id number] [address] [place] [address], [place] [address] 16 Feb, 2014 [facility] [address] [id number] [address] [place] [address], [place] [address] Feb, [facility] [address] [id number] [facility] [place] [address] Feb, [facility] [address] [id number] [address] [place] [address], [place] [address] Feb, [facility] [address] [id number] [address] [place] [address], [place] [address] Feb, [facility] [address] [id number] [address] [place] [address], [place] [address] Feb, [facility] [address] [id number] [address] [place] [address], [place] [address] Feb, [facility] [address] [id number] [address] [place] [address], [place] [address] Feb, [facility] [address] [id number] [address] [place] [address], [place] [address] January, [facility] [address] [id number] [address] [place] [address], [place] [address] January, [facility] [address] [id number] [address] [place] [address], [place] [address] January, [facility] [address] [id number] [address] [place] [address], [place] [address] January, [facility] [address] [id number] [address] [place] [address], [place] [address] January, [facility] [address] [id number] [address] [place] [address], [place] [address] January, [facility] [address] [id number] [address] [place] [address], [place] [address] January, [facility] [address] [id number] [address] [place] [address], [place] [address] January, [facility] [address] [id number] [address] [place] [address], [place] [address] January, [facility] [address] [id number] [address] [place] [address], [place] [address] January, [facility] [address] [id number] [address] [place] [address], [place] [address] January, [facility] [address] [id number] [address] [place] [address], [place] [address] January, [facility] [address] [id number] [address] [place] [address], [place] [address] January, [facility] [address] [id number] [address] [place] [address], [place] [address] January, [facility] [address] [id number] [address] [place] [address], [place] [address] January, [facility] [address] [id number] [address] [place] [address], [place] [address] January, [facility] [address] [id number] [address] [place] [address], [place] [address] January, [facility] [address] [id number] [address] [place] [address], [place] [address] January, [facility] [address] [id number] [address] [place] [address], [place] [address] January, [facility] [address] [id number] [address] [place] [address], [place] [address] January, [facility] [address] [id number] [address] [place] [address], [place] [address] January, [facility] [address] [id number] [address] [place] [address], [place] [address] January, [facility] [address] [id number] [address] [place] [address], [place] [address] January, [facility] [address] [id number] [address] [place] [address], [place] [address] January, [facility] [address] [id number] [address] [place] [address], [place] [address] January, [facility] [place] [address] [id number] [address] [place] [address], [place] [address] January, [facility] [address] [id number] [address] [place] [address], [place] [address] Dec, [facility] [address] [id number] [address] [place] [address], [place] [address] Dec, [facility] [address] [id number] [address] [place] [address], [place] [address] Dec, [facility] [address] [id number] [address] [place] [address], [place] [address] Dec, [facility] [address] [id number] [address] [place] [address], [place] [address] Dec, [facility] [address] [id number] [address] [place] [address], [place] [address] Dec, [facility] [address] [id number] [address] [place] [address], [place] [address] Dec, [facility] [address] [id number] [address] [place] [address], [place] [address] Dec, [facility] [address] [id number] [address] [place] [address], [place] [address] Dec, [facility] [address] [id number] [address] [place] [address], [place] [address] Dec, [facility] [address] [id number] [address] [place] [address], [place] [address] Dec, [facility] [address] [id number] [address] [place] [address], [place] [address] Dec, [facility] [address] [id number] [address] [place] [address], [place] [address] Dec, [facility] [address] [id number] [address] [place] [address], [place] [address] Dec, [facility] [address] [id number] [address] [place] [address], [place] [address] Dec, [facility] [address] [id number] [address] [place] [address], [place] [address] Dec, [facility] [address] [id number] [address] [place] [address], [place] [address] Dec, [facility] [address] [id number] [address] [place] [address], [place] [address] Dec, [facility] [address] [id number] [address] [place] [address], [place] [address] Dec, [facility] [address] [id number] [address] [place] [address], [place] [address] Dec, [facility] [address] [id number] [address] [place] [address], [place] [address] Dec, [facility] [address] [id number] [address] [place] [address], [place] [address] Dec, [facility] [address] [id number] [address] [place] [address], [place] [address] Nov, [facility] [address] [id number] [address] [place] [address], [place] [address] Nov, [facility] [address] [id number] [address] [place] [address], [place] [address] Nov, [facility] [address] [id number] [address] [place] [address], [place] [address] Nov, [facility] [address] [id number] [address] [place] [address], [place] [address] Nov, [facility] [address] [id number] [address] [place] [address], [place] [address] Nov, [facility] [address] [id number] [address] [place] [address], [place] [address] Nov, [facility] [address] [id number] [address] [place] [address], [place] [address] Nov, [facility] [address] [id number] [address] [place] [address], [place] [address] 18 Nov, 2013 [facility] [address] [id number] [address] [place] [address], [place] [address] 18 Nov, 2013 [facility] [address] [id number] [address] [place] [address], [place] [address] 18 Nov, 2013 [facility] [address] [id number] [address] [place] [address], [place] [address] 18 Nov, 2013 [facility] [address] [id number] [address] [place] [address], [place] [address] 14 Nov, 2013 [facility] [address] [id number] [address] [place] [address], [place] [address] 14 Nov, 2013 [facility] [address] [id number] [address] [place] [address], [place] [address] 06 Nov, 2013 [facility] [address] [id number] [address] [place] [address], [place] [address] Nov, [facility] [address] [id number] [address] [place] [address], [place] [address] Oct, [facility] [address] [id number] [address] [place] [address], [place] [address] 28 Oct, 2013 [facility] [address] [id number] [address] [place] [address], [place] [address] 24 Oct, 2013 [facility] [address] [id number] [address] [place] [address], [place] [address] 24 Oct, 2013 [facility] [address] [id number] [address] [place] [address], [place] [address] 24 Oct, 2013 [facility] [address] [id number] [address] [place] [address], [place] [address] 24 Oct, 2013 [facility] [address] [id number] [address] [place] [address], [place] [address] 22 Oct, 2013 [facility] [address] [id number] [address] [place] [address], [place] [address] Oct, [facility] [address] [id number] [address] [place] [address], [place] [address] Oct, [facility] [address] [id number] [address] [place] [address], [place] [address] Oct, [facility] [address] [id number] [address] [place] [address], [place] [address] Oct, [facility] [address] [id number] [address] [place] [address], [place] [address] Oct, [facility] [address] [id number] [address] [place] [address], [place] [address] Oct, [facility] [address] [id number] [address] [place] [address], [place] [address] Oct, [facility] [address] [id number] [address] [place] [address], [place] [address] Oct, [facility] [address] [id number] [address] [place] [address], [place] [address] Sep, [facility] [address] [id number] [address] [place] [address], [place] [address] Sep, [facility] [address] [id number] [address] [place] [address], [place] [address] 15 Sep, 2013 [facility] [address] [id number] [address] [place] [address], [place] [address] Sep, [facility] [address] [id number] [address] [place] [address], [place] [address] Sep, [facility] [address] [id number] [address] [place] [address], [place] [address] Sep, [facility] [address] [id number] [address] [place] [address], [place] [address] Sep, [facility] [address] [id number] [address] [place] [address], [place] [address] Sep, [facility] [address] [id number] [address] [place] [address], [place] [address] Sep, [facility] [place] [address] [id number] [address] [place] [address], [place] [address] Sep, [facility] [address] [id number] [address] [place] [address], [place] [address] Sep, [facility] [place] [address] [id number] [address] [place] [address], [place] [address] Sep, [facility] [address] [id number] [address] [place] [address], [place] [address] Sep, [facility] [place] [address] [id number] [address] [place] [address], [place] [address] Aug, [facility] [address] [id number] [address] [place] [address], [place] [address] Aug, [facility] [address] [id number] [address] [place] [address], [place] [address] Aug, [facility] [address] [id number] [address] [place] [address], [place] [address] Aug, [facility] [address] [id number] [address] [place] [address], [place] [address] Aug, [facility] [address] [id number] [address] [place] [address], [place] [address] 17 Aug, 2013 [facility] [address] [id number] [address] [place] [address], [place] [address] 16 Aug, 2013 [facility] [address] [id number] [address] [place] [address], [place] [address] Aug, [facility] [address] [id number] [address] [place] [address], [place] [address] Aug, [facility] [address] [id number] [address] [place] [address], [place] [address] Aug, [facility] [place] [address] [id number] [address] [place] [address] 10 Aug, 2013 [facility] [address] [id number] [address] [place] [address], [place] [address] 10 Aug, 2013 [facility] [address] [id number] [address] [place] [address], [place] [address] Aug, [facility] [address] [id number] [address] [place] [address], [place] [address] Aug, [facility] [address] [id number] [address] [place] [address] Jul, [facility] [address] [id number] [address] [place] [address], [place] [address] Jul, [facility] [address] [id number] [address] [place] [address], [place] [address] 18 Jul, 2013 [facility] [address] [id number] [address] [place] [address], [place] [address] 18 Jul, 2013 [facility] [address] [id number] [address] [place] [address], [place] [address] 14 Jul, 2013 [facility] [address] [id number] [address] [place] [address] 14 Jul, 2013 [facility] [address] [id number] [address] [place] [address], [place] [address] 14 Jul, 2013 [facility] [address] [id number] [address] [place] [address] 14 Jul, 2013 [facility] [address] [id number] [address] [place] [address] 07 Jul, 2013 [facility] [address] [id number] [address] [place] [address], [place] [address] 07 Jul, 2013 [facility] [address] [id number] [address] [place] [address], [place] [address] 06 Jul, 2013 [facility] [address] [id number] [address] [place] [address], [place] [address] 06 Jul, 2013 [facility] [address] [id number] [address] [place] [address], [place] [address] 05 Jul, 2013 [facility] [address] [id number] [address] [place] [address], [place] [address] 05 Jul, 2013 [facility] [address] [id number] [address] [place] [address], [place] [address] 23 Jun, 2013 [facility] [address] [id number] [address] [place] [address], [place] [address] 23 Jun, 2013 [facility] [address] [id number] [address] [place] [address], [place] [address] 15 Jun, 2013 [facility] [address] [id number] [address] [place] [address], [place] [address] 15 Jun, 2013 [facility] [address] [id number] [address] [place] [address], [place] [address] 14 Jun, 2013 [facility] [address] [id number] [address] [place] [address], [place] [address] 24 May, 2012 [facility] [place] [address] [id number] [address] [place] [address], [place] [address] 20 May, 2012 [facility] [address] [id number] [address] [place] [address], [place] [address] 20 May, 2012 [facility] [place] [address] [id number] [address] [place] [address], [place] [address] 20 May, 2012 [facility] [address] [id number] [address] [place] [address], [place] [address] 19 Sep, 2012 [facility] [address] [id number] [address] [place] [address], [place] [address] 13 Sep, 2012 [facility] [address] [id number] [address] [place] [address], [place] [address] 12 May, 2012 [facility] [address] [id number] [address] [place] [address], [place] [address] 12 May, 2012 [facility] [address] [id number] [address] [place] [address], [place] [address] 11 May, 2012 [facility] [address] [id number] [facility] [place] [address] 11 May, 2012 [facility] [address] [id number] [address] [place] [address], [place] [address] May, 2012 [facility] [address] [id number] [address] [place] [address], [place] [address] 09 May, 2012 [facility] [address] [id number] [address] [place] [address], [place] [address] 05 May, 2012 [facility] [address] [id number] [address] [place] [address], [place] [address] 04 May, 2012 [facility] [address] [id number] [address] [place] [address], [place] [address] 03 May, 2012 [facility] [address] [id number] [address] [place] [address], [place] [address] Apr, [facility] [address] [id number] [address] [place] [address], [place] [address] Apr, [facility] [address] [id number] [address] [place] [address], [place] [address] Apr, [facility] [address] [id number] [address] [place] [address], [place] [address] Apr, [facility] [address] [id number] [address] [place] [address], [place] [address] Apr, [facility] [address] [id number] [address] [place] [address], [place] [address] Apr, [facility] [address] [id number] [address] [place] [address], [place] [address] Apr, [facility] [address] [id number] [address] [place] [address], [place] [address] Apr, [facility] [address] [id number] [address] [place] [address], [place] [address] Apr, [facility] [address] [id number] [address] [place] [address], [place] [address] Mar, [facility] [address] [id number] [address] [place] [address], [place] [address] Mar, [facility] [address] [id number] [address] [place] [address], [place] [address] Mar, [facility] [address] [id number] [address] [place] [address], [place] [address] Mar, [facility] [address] [id number] [address] [place] [address], [place] [address] Mar, [facility] [address] [id number] [address] [place] [address], [place] [address] Mar, [facility] [address] [id number] [address] [place] [address], [place] [address] Mar, [facility] [place] [address] [id number] [address] [place] [address], [place] [address] Mar, [facility] [place] [address] [id number] [address] [place] [address], [place] [address] Mar, [facility] [place] [address] [id number] [address] [place] [address], [place] [address] Mar, [facility] [place] [address] [id number] [address] [place] [address], [place] [address] Mar, [facility] [place] [address] [id number] [address] [place] [address], [place] [address] Feb, [facility] [address] [id number] [address] [place] [address], [place] [address] Feb, [facility] [address] [id number] [address] [place] [address], [place] [address] Feb, [facility] [address] [id number] [address] [place] [address], [place] [address] Feb, [facility] [address] [id number] [address] [place] [address], [place] [address] Feb, [facility] [address] [id number] [address] [place] [address], [place] [address] Feb, [facility] [address] [id number] [address] [place] [address], [place] [address] Feb, [facility] [address] [id number] [address] [place] [address], [place] [address] Feb, [facility] [address] [id number] [address] [place] [address], [place] [address] Feb, [facility] [address] [id number] [address] [place] [address], [place] [address] January, [facility] [address] [id number] [address] [place] [address], [place] [address] January, [facility] [address] [id number] [address] [place] [address], [place] [address] January, [facility] [address] [id number] [address] [place] [address], [place] [address] January, [facility] [address] [id number] [address] [place] [address], [place] [address] January, [facility] [address] [id number] [address] [place] [address], [place] [address] January, [facility] [address] [id number] [address] [place] [address], [place] [address] January, [facility] [address] [id number] [address] [place] [address], [place] [address] January, [facility] [address] [id number] [address] [place] [address], [place] [address] January, [facility] [address] [id number] [address] [place] [address], [place] [address] January, [facility] [address] [id number] [address] [place] [address], [place] [address] January, [facility] [address] [id number] [address] [place] [address], [place] [address] January, [facility] [address] [id number] [address] [place] [address], [place] [address] January, [facility] [place] [address] [id number] [address] [place] [address], [place] [address] January, [facility] [address] [id number] [address] [place] [address], [place] [address] January, [facility] [address] [id number] [address] [place] [address], [place] [address] January, [facility] [address] [id number] [address] [place] [address], [place] [address] January, [facility] [place] [address] [id number] [address] [place] [address], [place] [address] January, [facility] [address] [id number] [address] [place] [address], [place] [address] January, [facility] [address] [id number] [address] [place] [address], [place] [address] January, [facility] [address] [id number] [address] [place] [address], [place] [address] January, [facility] [place] [address] [id number] [address] [place] [address], [place] [address] January, [facility] [address] [id number] [address] [place] [address], [place] [address] January, [facility] [address] [id number] [address] [place] [address], [place] [address] Dec, [facility] [address] [id number] [address] [place] [address], [place] [address] Dec, [facility] [address] [id number] [address] [place] [address], [place] [address] Dec, [facility] [address] [id number] [address] [place] [address], [place] [address] Dec, [facility] [address] [id number] [address] [place] [address], [place] [address] Dec, [facility] [place] [address] [id number] [address] [place] [address], [place] [address] Nov, [facility] [address] [id number] [address] [place] [address], [place] [address] Oct, [facility] [address] [id number] [address] [place] [address], [place] [address] Oct, [facility] [address] [id number] [address] [place] [address], [place] [address] Oct, [facility] [address] [id number] [address] [place] [address], [place] [address] Oct, [facility] [address] [id number] [address] [place] [address], [place] [address] Oct, [facility] [address] [id number] [address] [place] [address], [place] [address] Sep, [facility] [address] [id number] [address] [place] [address], [place] [address] Sep, [facility] [address] [id number] [address] [place] [address], [place] [address] Sep, [facility] [address] [id number] [address] [place] [address], [place] [address] Aug, [facility] [place] [address] [id number] [address] [place] [address], [place] [address] Aug, [facility] [address] [id number] [address] [place] [address], [place] [address] Aug, [facility] [address] [id number] [address] [place] [address], [place] [address] Aug, [facility] [address] [id number] [address] [place] [address], [place] [address] Jul, [facility] [address] [id number] [address] [place] [address], [place] [address] Jul, [facility] [address] [id number] [address] [place] [address], [place] [address] Jul, [facility] [address] [id number] [address] [place] [address], [place] [address] Jul, [facility] [address] [id number] [address] [place] [address], [place] [address] Jul, [facility] [address] [id number] [address] [place] [address], [place] [address] Jul, [facility] [address] [id number] [address] [place] [address], [place] [address] Jun, [facility] [address] [id number] [address] [place] [address], [place] [address] Jun, [facility] [address] [id number] [address] [place] [address], [place] [address] Jun, [facility] [address] [id number] [address] [place] [id number] Jun, [facility] [address] [id number] [address] [place] [address], [place] [address] Jun, [facility] [address] [id number] [address] [place] [address] Jun, [facility] [address] [id number] [address] [place] [address] Jun, [facility] [address] [id number] [address] [place] [address] Jun, [facility] [address] [id number] [address] [place] [address] Jun, [facility] [address] [id number] [address] [place] [address] Jun, [facility] [address] [id number] [address] [place] [address], [place] [address] May, [facility] [address] [id number] [address] [place] [address], [place] [address] 08 May, 2012 [facility] [address] [id number] [address] [place] [address], [place] [address] May, [facility] [address] [id number] [address] [place] [address], [place] [address] Apr, [facility] [address] [id number] [address] [place] [address], [place] [address] Apr, [facility] [address] [id number] [address] [place] [address], [place] [address] Apr, [facility] [address] [id number] [address] [place] [address], [place] [address] Apr, [facility] [address] [id number] [address] [place] [address], [place] [address] Apr, [facility] [address] [id number] [address] [place] [address], [place] [address] Apr, [facility] [address] [id number] [address] [place] [address], [place] [address] Apr, [facility] [address] [id number] [address] [place] [address], [place] [address] Apr, [facility] [address] [id number] [address] [place] [address], [place] [address] Apr, [facility] [address] [id number] [address] [place] [address], [place] [address] Mar, [facility] [address] [id number] [address] [place] [address], [place] [address] Mar, [facility] [address] [id number] [address] [place] [address], [place] [address] Mar, [facility] [address] [id number] [address] [place] [address], [place] [address] Mar, [facility] [address] [id number] [address] [place] [address], [place] [address] Feb, [facility] [address] [id number] [address] [place] [address], [place] [address] Feb, [facility] [address] [id number] [address] [place] [address], [place] [address] Feb, [facility] [address] [id number] [address] [place] [address], [place] [address] January, [facility] [address] [id number] [address] [place] [address], [place] [address] January, [facility] [address] [id number] [address] [place] [address], [place] [address] January, [facility] [address] [id number] [address] [place] [address], [place] [address] January, [facility] [address] [id number] [address] [place] [address], [place] [address] January, [facility] [address] [id number] [address] [place] [address], [place] [address] Dec, [facility] [address] [id number] [address] [place] [address], [place] [address] Dec, [facility] [place] [address] [id number] [address] [place] [address], [place] [address] Dec, [facility] [address] [id number] [address] [place] [address], [place] [address] Oct, [facility] [address] [id number] [address] [place] [address], [place] [address] Oct, [facility] [address] [id number] [address] [place] [address], [place] [address] Oct, [facility] [address] [id number] [address] [place] [address], [place] [address] Sep, [facility] [address] [id number] [address] [place] [address], [place] [address] Sep, [facility] [address] [id number] [address] [place] [id number] 07 Aug, 2011 [facility] [address] [id number] [address] [place] [address], [place] [address] 08 Jul, 2011 [facility] [address] [id number] [address] [place] [id number] 08 Jul, 2011 [facility] [address] [id number] [address] [place] [address], [place] [address] Mar, [facility] [address] [id number] [address] [place] [address] Aug, [facility] [address] [id number] [address] [place] [address], [place] [address] 10 Jul, 2010 [facility] [address] [id number] [address] [place] [address], [place] [address] Jul, [facility] [address] [id number] [address] [place] [address], [place] [address] Jul, [facility] [address] [id number] [address] [place] [address], [place] [address] Jul, [facility] [address] [id number] [address] [place] [address] 14 Jun, 2010 [facility] [address] [id number] [address] [place] [address], [place] [address] Jun, [facility] [address] [id number] [address] [place] [address] Apr, [facility] [address] [id number] [address] [place] [address] Aug, [facility] [address] [id number] [address] [place] [address], [place] [address] Jul, [facility] [address] [id number] [address] [place] [id number] 17 Jul, 2009 [facility] [address] [id number] [address] [place] [address], [place] [address] 13 Jul, 2009 [facility] [address] [id number] [address] [place] [address] Jun, [facility] [address] [facility] [id number] [address] [place] [id number] 10 May, 2009 [facility] [address] [facility] [id number] [address] [place] [address] Dec, [facility] [address] [facility] [id number] [address] [place] [address] Nov, [facility] [address] [facility] [id number] [address] [place] [address] Oct, [facility] [address] [facility] [id number] [address] [place] [address] Aug, [facility] [address] [facility] [id number] [address] [place] [id number] Aug, [facility] [address] [facility] [id number] [address] [place] [address] Jun, IMMUNIZATIONS No Known Immunizations SOCIAL HISTORY Never [...] x 3 day s 04/2012 Hospitalization History [facility] [place]- Right wrist injury 03/29/2018
--- OUTSIDE RECORDS SUMMARY | 2020-04-09 00:02 | XMS REPORT ---
Author Author Kateryna Turner Doctor Organization [facility] Address Unknown Phone Unavailable Care Team Providers Care Wool Sampler Name Role Phone Migration, Doctor Unavailable Unavailable PROBLEMS Type Condition ICD9-CM Code XHE39-UC Code Onset Dates Condition S tatus SNOMED Code Problem Irregular menses N92.6 Active 801 46782 Problem Migraine with aura and without status migrainosu s, not intractable G43.109 Active 8277062 Problem Uncontrolled type 2 diabetes mellitus with hyperglycemia E11.65 Active 282813115 Problem Morbid obesity due to excess calories E66.01 Active 340657749 Problem RLS (restless legs syndrome) G25.81 A ctive 02496422 Problem Morbid obesity E66.01 Active 37466 6002 ALLERGIES No Information ENCOUNTERS Encounter Location Date Diagnosis [facility] [address] [facility] [id number] [address] [place] [id number] 15 Feb, 2020 Encounter for screening labo ratory testing for COVID-19 virus Z11.59 [facility] [address] [place] [id number] [address] [place] [id number] 08 Feb, 2020 [facility] [address] [place] [id number] [address] [place] [address] January, [facility] [address] [place] [id number] [address] [place] [address] January, BMI 50.0-59.9, adult Z68.43 and Vomiting, unspecified R11.10 [facility] [address] [facility] [id number] [address] [place] [address] January, [facility] [address] [place] [id number] [address] [place] [address] Dec, [facility] [address] [place] [id number] [address] [place] [address] Dec, [facility] [address] [place] [id number] [address] [place] [phone] 23 Dec, 2019 Uncontrolled type 2 diabetes mellitus with hyperglycemia E11.65 [facility] [address] [id number] [address] [place] [phone] 07 Dec, 2019 [facility] [address] [id number] [address] [place] [id number] 06 Dec, 2019 [facility] [address] [id number] [address] [place] [id number] 03 Dec, 2019 [facility] [address] [id number] [address] [place] [address] 30 Nov, 2019 [facility] [address] [id number] [address] [place] [address] 28 Nov, 2019 [facility] [address] [id number] [address] [place] [address] Nov, [facility] [address] [facility] [id number] [address] [place] [address] Nov, RLS (restless legs syndrome) G25.81 [facility] [address] [id number] [address] [place] [address] 15 Oct, 2019 [facility] [address] [id number] [address] [place] [id number] 09 Oct, 2019 Influenza J11.1 [facility] [address] [id number] [address] [place] [address] 16 Sep, 2019 [facility] [address] [id number] [address] [place] [address] 14 Sep, 2019 [facility] [address] [id number] [address] [place] [address] 14 Sep, 2019 [facility] [address] [id number] [address] [place] [id number] 13 Sep, 2019 [facility] [address] [id number] [address] [place] [address] Sep, Pneumonia of left lower lobe due to infectious organism J18.9 and Migraine with aura and without status migrainosus, not intractable G43.109 [facility] [address] [id number] [address] [place] [address] Sep, [facility] [address] [id number] [address] [place] [address] Sep, [facility] [address] [id number] [address] [place] [address] Sep, [facility] [address] [id number] [address] [place] [address] Sep, [facility] [address] [id number] [address] [place] [address] Sep, Pneumonia of left lower lobe due to infectious organism J18.9 and Migraine with aura and without status migrainosus, not intractable G43.109 [facility] [address] [id number] [address] [place] [address] Aug, Irregular menses N92.6 ; Wel l woman exam Z01.419 ; Pelvic cramping R10.2 and Left breast lump N63.20 [place] [address] [id number] [address] [place] [address] Aug, [place] [address] [id number] [address] [place] [address] Aug, Well woman exam Z01.419 ; Le ft breast lump N63.20 ; Irregular menses N92.6 ; Encounter for immunization Z23 ; Pelvic cramping R10.2 and Screening for cervical cancer Z12.4 [facility] [address] [id number] [address] [place] [address] Aug, [facility] [address] [id number] [address] [place] [address] Aug, [facility] [address] [id number] [address] [place] [address] Aug, [place] [address] [facility] [id number] [address] [place] [address] Jul, [facility] [address] [facility] [id number] [place] [address] Jun, [facility] [address] [facility] [id number] [address] [place] [address] Jun, [facility] [address] [place] [id number] [place] [address] Jun, [facility] [address] [facility] [id number] [address] [place] [address] Jun, BMI 50.0-59.9, adult Z68.43 [facility] [address] [place] [id number] [address] [place] [address] Jun, [facility] [address] [place] [id number] [address] [place] [address] May, Acute non-recurrent sinusiti s, unspecified location J01.90 ; Diarrhea, unspecified R19.7 ; Vomiting, unspecified R11.10 and Morbid obesity E66.01 [facility] [address] [place] [id number] [address] [place] [address] Apr, [facility] [address] [place] [id number] [address] [place] [address] Apr, Anemia due to other cause, n ot classified D64.89 and D-dimer, elevated R79.89 [facility] [address] [place] [id number] [address] [place] [address] Apr, [facility] [address] [facility] [id number] [address] [place] [address] Apr, [facility] [address] [place] [id number] [address] [place] [address] Mar, Anemia due to other cause, n ot classified D64.89 and D-dimer, elevated R79.89 [facility] [address] [place] [id number] [address] [place] [address] Mar, Leg edema, right R60.0 ; Hig h risk medication use Z79.899 and Morbid obesity E66.01 [place] [address] [place] [id number] [address] [place] [address] Mar, BMI 50.0-59.9, adult Z68.43 [place] [address] [place] [id number] [place] [address] Mar, [place] [address] [place] [id number] [address] [place] [address] January, Uncontrolled type 2 diabetes mellitus with hyperglycemia E11.65 ; RLS (restless legs syndrome) G25.81 and Morbid obesity E66.01 [place] [address] [place] [id number] [address] [place] [address] Oct, Lipoma of right lower extrem ity D17.23 [place] [address] [place] [id number] [address] [place] [address] Oct, Lipoma of right lower extrem ity D17.23 [place] [address] [place] [id number] [address] [place] [address] Sep, [place] [address] [place] [id number] [address] [place] [address] Sep, [place] [address] [place] [id number] [address] [place] [address] Sep, [place] [address] [place] [id number] [address] [place] [address] Sep, [place] [address] [facility] [id number] [address] [place] [address] Sep, [place] [address] [place] [id number] [address] [place] [address] Aug, Uncontrolled type 2 diabetes mellitus with hyperglycemia E11.65 ; Morbid obesity due to excess calories E66.01 ; Lipoma of torso D17.1 and BMI 50.0-59.9, adult Z68.43 [facility] [address] [id number] [address] [place] [address] Jun, Encounter for immunization Z 23 [facility] [address] [id number] [address] [place] [address] Jul, [facility] [address] [id number] [address] [place] [address] Jun, Encounter for immunization Z 23 [facility] [address] [id number] [address] [place] [address] 30 May, 2016 [facility] [address] [id number] [address] [place] [address] Jun, Encounter for immunization Z 23 [facility] [address] [id number] [address] [place] [id number] 29 May, 2015 [facility] [address] [id number] [address] [place] [address] May, [facility] [address] [id number] [address] [place] [address] Apr, [facility] [address] [id number] [address] [place] [address] Feb, [facility] [address] [id number] [address] [place] [phone] Feb, [facility] [address] [id number] [address] [place] [address] Feb, [facility] [address] [id number] [address] [place] [address] January, [facility] [address] [id number] [address] [place] [phone] January, [facility] [address] [id number] [address] [place] [address] Dec, [facility] [address] [id number] [address] [place] [phone] Dec, [facility] [address] [id number] [address] [place] [address], [place] [address] Nov, [facility] [address] [id number] [address] [place] [address], [place] [address] Nov, [facility] [address] [id number] [address] [place] [address], [place] [address] Nov, [facility] [address] [id number] [address] [place] [address], [place] [address] Nov, [facility] [address] [id number] [address] [place] [address], [place] [address] Nov, [facility] [address] [id number] [address] [place] [address], [place] [address] Nov, [facility] [address] [id number] [address] [place] [address], [place] [address] Nov, [facility] [address] [id number] [address] [place] [address], [place] [address] Oct, [facility] [address] [id number] [address] [place] [address], [place] [address] Oct, [facility] [address] [id number] [address] [place] [address], [place] [address] Oct, [facility] [address] [id number] [address] [place] [address], [place] [address] Oct, [facility] [address] [id number] [address] [place] [address], [place] [address] Oct, [facility] [address] [id number] [address] [place] [address], [place] [address] Sep, [facility] [address] [id number] [address] [place] [address], [place] [address] Sep, [facility] [address] [id number] [address] [place] [address], [place] [address] Sep, [facility] [address] [id number] [address] [place] [address], [place] [address] Sep, [facility] [address] [id number] [address] [place] [address], [place] [address] Sep, [facility] [address] [id number] [address] [place] [address], [place] [address] Sep, [facility] [address] [id number] [address] [place] [address], [place] [address] Sep, [facility] [address] [id number] [address] [place] [address], [place] [address] Sep, [facility] [address] [id number] [address] [place] [address], [place] [address] Sep, [facility] [address] [id number] [address] [place] [address], [place] [address] Sep, [facility] [address] [id number] [address] [place] [address], [place] [address] Aug, [facility] [address] [id number] [address] [place] [address], [place] [address] Aug, [facility] [address] [id number] [address] [place] [address], [place] [address] Aug, [facility] [address] [id number] [address] [place] [address], [place] [address] Aug, [facility] [address] [id number] [address] [place] [address], [place] [address] Aug, [facility] [address] [id number] [address] [place] [address], [place] [address] Aug, [facility] [address] [id number] [address] [place] [address], [place] [address] Aug, [facility] [address] [id number] [address] [place] [address], [place] [address] Aug, [facility] [address] [id number] [address] [place] [address], [place] [address] Aug, [facility] [address] [id number] [address] [place] [address], [place] [address] Aug, [facility] [address] [id number] [address] [place] [address], [place] [address] Aug, [facility] [address] [id number] [address] [place] [address], [place] [address] Aug, [facility] [address] [id number] [address] [place] [address], [place] [address] Aug, [facility] [address] [id number] [address] [place] [address], [place] [address] Aug, [facility] [address] [id number] [address] [place] [address], [place] [address] Aug, [facility] [address] [id number] [address] [place] [address], [place] [address] Aug, [facility] [address] [id number] [address] [place] [address], [place] [address] Aug, [facility] [address] [id number] [address] [place] [address], [place] [address] Aug, [facility] [address] [id number] [address] [place] [address], [place] [address] Aug, [facility] [address] [id number] [address] [place] [address], [place] [address] Aug, [facility] [address] [id number] [address] [place] [address], [place] [address] Aug, [facility] [address] [id number] [address] [place] [address], [place] [address] Aug, [facility] [address] [id number] [address] [place] [address], [place] [address] 05 Aug, 2014 [facility] [address] [id number] [address] [place] [address], [place] [address] 05 Aug, [address] [facility] [address] [id number] [address] [place] [address], [place] [address] 07 Jul, 2014 [facility] [address] [id number] [address] [place] [address], [place] [address] 07 Jul, 2014 [facility] [address] [id number] [address] [place] [address], [place] [address] 27 Jun, 2014 [facility] [address] [id number] [address] [place] [address], [place] [address] 27 Jun, 2014 [facility] [address] [id number] [address] [place] [address] 17 Jun, 2014 [facility] [address] [id number] [address] [place] [address], [place] [address] 17 Jun, 2014 [facility] [address] [id number] [address] [place] [address] 15 Jun, 2014 [facility] [address] [id number] [address] [place] [address], [place] [address] 15 Jun, 2014 [facility] [address] [id number] [address] [place] [address] 14 Jun, 2014 [facility] [address] [id number] [address] [place] [address], [place] [address] 14 Jun, 2014 [facility] [address] [id number] [address] [place] [address] 13 Jun, 2014 [facility] [address] [id number] [address] [place] [address] 13 Jun, 2014 [facility] [address] [id number] [address] [place] [address] 13 Jun, 2014 [facility] [address] [id number] [address] [place] [address], [place] [address] 13 Jun, 2014 [facility] [address] [id number] [address] [place] [address] 06 Jun, 2014 [facility] [address] [id number] [address] [place] [address], [place] [address] 06 Jun, 2014 [facility] [address] [id number] [facility] [place] [address] May, 2013 [facility] [address] [id number] [facility] [place] [address] May, [address] [facility] [address] [id number] [facility] [place] [address] May, 2013 [facility] [address] [id number] [address] [place] [address], [place] [address] May, 2013 [facility] [address] [id number] [address] [place] [address], [place] [address] May, 2013 [facility] [address] [id number] [address] [place] [address], [place] [address] May, 2013 [facility] [address] [id number] [address] [place] [address], [place] [address] May, 2013 [facility] [address] [id number] [address] [place] [address], [place] [address] May, 2013 [facility] [address] [id number] [address] [place] [address], [place] [address] Apr, [facility] [address] [id number] [address] [place] [address], [place] [address] Apr, [facility] [address] [id number] [address] [place] [address], [place] [address] Apr, [facility] [address] [id number] [address] [place] [address], [place] [address] Apr, [facility] [address] [id number] [address] [place] [address], [place] [address] Apr, [facility] [address] [id number] [address] [place] [address], [place] [address] Apr, [facility] [address] [id number] [address] [place] [address], [place] [address] Apr, [facility] [address] [id number] [address] [place] [address], [place] [address] Apr, [facility] [address] [id number] [address] [place] [address], [place] [address] Apr, [facility] [address] [id number] [address] [place] [address], [place] [address] Mar, [facility] [address] [id number] [address] [place] [address], [place] [address] Mar, [facility] [address] [id number] [address] [place] [address], [place] [address] Mar, [facility] [address] [id number] [address] [place] [address], [place] [address] Feb, [facility] [address] [id number] [address] [place] [address], [place] [address] Feb, [facility] [address] [id number] [address] [place] [address], [place] [address] Feb, [facility] [address] [id number] [address] [place] [address], [place] [address] Feb, [facility] [address] [id number] [address] [place] [address], [place] [address] Feb, [facility] [address] [id number] [address] [place] [address], [place] [address] Feb, [facility] [address] [id number] [address] [place] [address], [place] [address] Feb, [facility] [address] [id number] [address] [place] [address], [place] [address] Feb, [facility] [address] [id number] [address] [place] [address], [place] [address] Feb, [facility] [address] [id number] [address] [place] [address], [place] [address] Feb, [facility] [address] [id number] [address] [place] [address], [place] [address] 10 Feb, 2014 [facility] [address] [id number] [address] [place] [address], [place] [address] Feb, [facility] [address] [id number] [facility] [place] [address] Feb, [facility] [address] [id number] [address] [place] [address], [place] [address] Feb, [facility] [address] [id number] [address] [place] [address], [place] [address] Feb, [facility] [address] [id number] [address] [place] [address], [place] [address] Feb, [facility] [address] [id number] [address] [place] [address], [place] [address] January, [facility] [address] [id number] [address] [place] [address], [place] [address] January, [facility] [address] [id number] [address] [place] [address], [place] [address] January, [facility] [address] [id number] [address] [place] [address], [place] [address] January, [facility] [address] [id number] [address] [place] [address], [place] [address] January, [facility] [address] [id number] [address] [place] [address], [place] [address] January, [facility] [address] [id number] [address] [place] [address], [place] [address] January, [facility] [address] [id number] [address] [place] [address], [place] [address] January, [facility] [address] [id number] [address] [place] [address], [place] [address] January, [facility] [address] [id number] [address] [place] [address], [place] [address] January, [facility] [address] [id number] [address] [place] [address], [place] [address] January, [facility] [address] [id number] [facility] [place] [address] January, [facility] [address] [id number] [facility] [place] [address] January, [facility] [address] [id number] [facility] [place] [address] January, [facility] [address] [id number] [address] [place] [address], [place] [address] January, [facility] [address] [id number] [address] [place] [address], [place] [address] January, [facility] [address] [id number] [address] [place] [address], [place] [address] January, [facility] [address] [id number] [address] [place] [address], [place] [address] January, [facility] [address] [id number] [address] [place] [address], [place] [address] January, [facility] [address] [id number] [address] [place] [address], [place] [address] January, [facility] [address] [id number] [address] [place] [address], [place] [address] January, [facility] [address] [id number] [address] [place] [address], [place] [address] January, [facility] [address] [id number] [address] [place] [address], [place] [address] January, [facility] [address] [id number] [address] [place] [address], [place] [address] January, [facility] [address] [id number] [address] [place] [address], [place] [address] January, [facility] [address] [id number] [address] [place] [address], [place] [address] January, [facility] [address] [id number] [address] [place] [address], [place] [address] Dec, [facility] [address] [id number] [facility] [place] [address] Dec, [facility] [address] [id number] [facility] [place] [address] Dec, [facility] [address] [id number] [address] [place] [address], [place] [address] Dec, [facility] [address] [id number] [address] [place] [address], [place] [address] Dec, [facility] [address] [id number] [address] [place] [address], [place] [address] Dec, [facility] [address] [id number] [address] [place] [address], [place] [address] Dec, [facility] [address] [id number] [address] [place] [address], [place] [address] Dec, [facility] [address] [id number] [address] [place] [address], [place] [address] Dec, [facility] [address] [id number] [address] [place] [address], [place] [address] Dec, [facility] [address] [id number] [address] [place] [address], [place] [address] Dec, [facility] [address] [id number] [address] [place] [address], [place] [address] Dec, [facility] [address] [id number] [address] [place] [address], [place] [address] Dec, [facility] [address] [id number] [address] [place] [address], [place] [address] Dec, [facility] [address] [id number] [address] [place] [address], [place] [address] Dec, [facility] [address] [id number] [address] [place] [address], [place] [address] Dec, [facility] [address] [id number] [facility] [place] [address] 08 Dec, [address] [facility] [address] [id number] [address] [place] [address], [place] [address] Dec, [facility] [address] [id number] [address] [place] [address], [place] [address] Dec, [facility] [address] [id number] [address] [place] [address], [place] [address] Dec, [facility] [address] [id number] [address] [place] [address], [place] [address] Dec, [facility] [address] [id number] [address] [place] [address], [place] [address] Dec, [facility] [address] [id number] [address] [place] [address], [place] [address] Nov, [facility] [address] [id number] [address] [place] [address], [place] [address] Nov, [facility] [address] [id number] [address] [place] [address], [place] [address] Nov, [facility] [address] [id number] [address] [place] [address], [place] [address] Nov, [facility] [address] [id number] [address] [place] [address], [place] [address] Nov, [facility] [address] [id number] [address] [place] [address], [place] [address] Nov, [facility] [address] [id number] [address] [place] [address], [place] [address] Nov, [facility] [address] [id number] [address] [place] [address], [place] [address] Nov, [facility] [address] [id number] [address] [place] [address], [place] [address] Nov, [facility] [address] [id number] [address] [place] [address], [place] [address] Nov, [facility] [address] [id number] [facility] [place] [address] 18 Nov, 2013 [facility] [address] [id number] [address] [place] [address], [place] [address] 18 Nov, 2013 [facility] [address] [id number] [address] [place] [address], [place] [address] 14 Nov, 2013 [facility] [address] [id number] [address] [place] [address], [place] [address] 14 Nov, [address] [facility] [address] [id number] [address] [place] [address], [place] [address] Nov, [facility] [address] [id number] [address] [place] [address], [place] [address] Nov, [facility] [address] [id number] [address] [place] [address], [place] [address] Oct, [facility] [address] [id number] [address] [place] [address], [place] [address] Oct, [facility] [address] [id number] [address] [place] [address], [place] [address] Oct, [facility] [address] [id number] [address] [place] [address], [place] [address] Oct, [facility] [address] [id number] [address] [place] [address], [place] [address] Oct, [facility] [address] [id number] [address] [place] [address], [place] [address] Oct, [facility] [address] [id number] [address] [place] [address], [place] [address] Oct, [facility] [address] [id number] [address] [place] [address], [place] [address] Oct, [facility] [address] [id number] [address] [place] [address], [place] [address] Oct, [facility] [address] [id number] [facility] [place] [address] 17 Oct, [address] [facility] [address] [id number] [address] [place] [address], [place] [address] 14 Oct, [address] [facility] [address] [id number] [address] [place] [address], [place] [address] 14 Oct, [address] [facility] [address] [id number] [address] [place] [address], [place] [address] 04 Oct, [address] [facility] [address] [id number] [address] [place] [address], [place] [address] 04 Oct, [address] [facility] [address] [id number] [address] [place] [address], [place] [address] 03 Oct, [address] [facility] [address] [id number] [address] [place] [address], [place] [address] Sep, [facility] [address] [id number] [address] [place] [address], [place] [address] Sep, [facility] [address] [id number] [address] [place] [address], [place] [address] Sep, [facility] [address] [id number] [address] [place] [address], [place] [address] Sep, [facility] [address] [id number] [address] [place] [address], [place] [address] Sep, [facility] [address] [id number] [address] [place] [address], [place] [address] Sep, [facility] [address] [id number] [address] [place] [address], [place] [address] Sep, [facility] [address] [id number] [address] [place] [address], [place] [address] Sep, [facility] [address] [id number] [address] [place] [address], [place] [address] Sep, [facility] [address] [id number] [address] [place] [address], [place] [address] Sep, [facility] [address] [id number] [address] [place] [address], [place] [address] Sep, [facility] [address] [id number] [address] [place] [address], [place] [address] Sep, [facility] [address] [id number] [address] [place] [address], [place] [address] Sep, [facility] [address] [id number] [address] [place] [address], [place] [address] Aug, [facility] [address] [id number] [address] [place] [address], [place] [address] Aug, [facility] [address] [id number] [address] [place] [address], [place] [address] Aug, [facility] [address] [id number] [address] [place] [address], [place] [address] Aug, [facility] [address] [id number] [address] [place] [address], [place] [address] Aug, [facility] [address] [id number] [address] [place] [address], [place] [address] 17 Aug, [address] [facility] [address] [id number] [address] [place] [address], [place] [address] 16 Aug, [address] [facility] [address] [id number] [address] [place] [address], [place] [address] 16 Aug, [address] [facility] [address] [id number] [address] [place] [address], [place] [address] 12 Aug, [address] [facility] [address] [id number] [address] [place] [address], [place] [address] Aug, [facility] [address] [id number] [address] [place] [address], [place] [address] 10 Aug, [address] [facility] [address] [id number] [address] [place] [address], [place] [address] 10 Aug, [address] [facility] [address] [id number] [address] [place] [address], [place] [address] 02 Aug, 2013 [facility] [address] [id number] [address] [place] [address], [place] [address] 02 Aug, [address] [facility] [address] [id number] [address] [place] [address], [place] [address] 19 Jul, 2013 [facility] [address] [id number] [address] [place] [address], [place] [address] 19 Jul, [address] [facility] [address] [id number] [address] [place] [address], [place] [address] 18 Jul, [address] [facility] [address] [id number] [address] [place] [address], [place] [address] 18 Jul, 2013 [facility] [address] [id number] [address] [place] [address], [place] [address] 14 Jul, 2013 [facility] [address] [id number] [address] [place] [address], [place] [address] 14 Jul, 2013 [facility] [address] [id number] [address] [place] [address], [place] [address] 14 Jul, 2013 [facility] [address] [id number] [address] [place] [address], [place] [address] 14 Jul, 2013 [facility] [address] [id number] [address] [place] [address], [place] [address] 07 Jul, 2013 [facility] [address] [id number] [address] [place] [address], [place] [address] 07 Jul, 2013 [facility] [address] [id number] [address] [place] [address], [place] [address] 06 Jul, [address] [facility] [address] [id number] [address] [place] [address], [place] [address] 06 Jul, 2013 [facility] [address] [id number] [address] [place] [address], [place] [address] 05 Jul, 2013 [facility] [address] [id number] [address] [place] [address] 05 Jul, 2013 [facility] [address] [id number] [address] [place] [address], [place] [address] 23 Jun, [address] [facility] [address] [id number] [address] [place] [address], [place] [address] 23 Jun, [address] [facility] [address] [id number] [address] [place] [address], [place] [address] 15 Jun, [address] [facility] [address] [id number] [address] [place] [address], [place] [address] 15 Jun, [address] [facility] [address] [id number] [address] [place] [address], [place] [address] 14 Jun, [address] [facility] [address] [id number] [address] [place] [address], [place] [address] 24 May, [address] [facility] [address] [id number] [address] [place] [address], [place] [address] 20 May, [address] [facility] [address] [id number] [address] [place] [address], [place] [address] 20 May, [address] [facility] [address] [id number] [address] [place] [address], [place] [address] 20 May, [address] [facility] [address] [id number] [address] [place] [address], [place] [address] 19 May, 2012 [facility] [address] [id number] [address] [place] [address], [place] [address] 13 May, [address] [facility] [address] [id number] [address] [place] [address], [place] [address] 12 May, [address] [facility] [address] [id number] [address] [place] [address], [place] [address] 12 May, [address] [facility] [address] [id number] [address] [place] [address], [place] [address] 11 May, [address] [facility] [address] [id number] [address] [place] [address], [place] [address] 11 May, [address] [facility] [address] [id number] [address] [place] [address], [place] [address] May, [facility] [address] [id number] [address] [place] [address], [place] [address] May, [address] [facility] [address] [id number] [address] [place] [address], [place] [address] 05 May, [address] [facility] [address] [id number] [address] [place] [address], [place] [address] May, [facility] [address] [id number] [address] [place] [address], [place] [address] May, [facility] [address] [id number] [address] [place] [address], [place] [address] Apr, [facility] [address] [id number] [address] [place] [address], [place] [address] Apr, [facility] [address] [id number] [address] [place] [address], [place] [address] Apr, [facility] [address] [id number] [address] [place] [address], [place] [address] Apr, [facility] [address] [id number] [address] [place] [address], [place] [address] Apr, [facility] [address] [id number] [address] [place] [address], [place] [address] Apr, [facility] [address] [id number] [address] [place] [address], [place] [address] Apr, [facility] [address] [id number] [address] [place] [address], [place] [address] Apr, [facility] [address] [id number] [address] [place] [address], [place] [address] Apr, [facility] [address] [id number] [address] [place] [address], [place] [address] Mar, [facility] [address] [id number] [address] [place] [address], [place] [address] Mar, [facility] [address] [id number] [address] [place] [address], [place] [address] Mar, [facility] [address] [id number] [address] [place] [address], [place] [address] Mar, [facility] [address] [id number] [address] [place] [address], [place] [address] Mar, [facility] [address] [id number] [address] [place] [address], [place] [address] Mar, [facility] [address] [id number] [address] [place] [address], [place] [address] Mar, [facility] [address] [id number] [address] [place] [address], [place] [address] Mar, [facility] [address] [id number] [address] [place] [address], [place] [address] Mar, [facility] [address] [id number] [address] [place] [address], [place] [address] Mar, [facility] [address] [id number] [address] [place] [address], [place] [address] Mar, [facility] [address] [id number] [address] [place] [address], [place] [address] Feb, [facility] [address] [id number] [address] [place] [address], [place] [address] Feb, [facility] [address] [id number] [address] [place] [address], [place] [address] Feb, [facility] [address] [id number] [address] [place] [address], [place] [address] Feb, [facility] [address] [id number] [address] [place] [address], [place] [address] Feb, [facility] [address] [id number] [address] [place] [address], [place] [address] Feb, [facility] [address] [id number] [address] [place] [address], [place] [address] Feb, [facility] [address] [id number] [address] [place] [address], [place] [address] Feb, [facility] [address] [id number] [address] [place] [address], [place] [address] Feb, [facility] [address] [id number] [address] [place] [address], [place] [address] January, [facility] [address] [id number] [address] [place] [address], [place] [address] January, [facility] [address] [id number] [address] [place] [address], [place] [address] January, [facility] [address] [id number] [address] [place] [address], [place] [address] January, [facility] [address] [id number] [address] [place] [address], [place] [address] January, [facility] [address] [id number] [address] [place] [address], [place] [address] January, [facility] [address] [id number] [address] [place] [address], [place] [address] January, [facility] [address] [id number] [address] [place] [address], [place] [address] January, [facility] [address] [id number] [address] [place] [address], [place] [address] January, [facility] [address] [id number] [address] [place] [address], [place] [address] January, [facility] [address] [id number] [address] [place] [address], [place] [address] January, [facility] [address] [id number] [address] [place] [address], [place] [address] January, [facility] [address] [id number] [address] [place] [address], [place] [address] January, [facility] [address] [id number] [address] [place] [address], [place] [address] January, [facility] [address] [id number] [address] [place] [address], [place] [address] January, [facility] [address] [id number] [address] [place] [address], [place] [address] January, [facility] [address] [id number] [address] [place] [address], [place] [address] January, [facility] [address] [id number] [address] [place] [address], [place] [address] January, [facility] [address] [id number] [address] [place] [address], [place] [address] January, [facility] [address] [id number] [address] [place] [address], [place] [address] January, [facility] [address] [id number] [address] [place] [address], [place] [address] January, [facility] [address] [id number] [address] [place] [address], [place] [address] January, [facility] [address] [id number] [address] [place] [address], [place] [address] January, [facility] [address] [id number] [address] [place] [address], [place] [address] Dec, [facility] [address] [id number] [address] [place] [address], [place] [address] Dec, [facility] [address] [id number] [address] [place] [address], [place] [address] 17 Dec, 2012 [facility] [address] [id number] [address] [place] [address], [place] [address] 16 Dec, 2012 [facility] [address] [id number] [address] [place] [address], [place] [address] Dec, [facility] [address] [id number] [address] [place] [address], [place] [address] Nov, [facility] [address] [id number] [address] [place] [address], [place] [address] Oct, [facility] [facility] [address] [id number] [address] [place] [address], [place] [address] Oct, [facility] [address] [id number] [address] [place] [address], [place] [address] Oct, [facility] [address] [id number] [address] [place] [address], [place] [address] Oct, [facility] [address] [id number] [address] [place] [address], [place] [address] Oct, [facility] [address] [id number] [address] [place] [address], [place] [address] Sep, [facility] [address] [id number] [address] [place] [address], [place] [address] Sep, [facility] [address] [id number] [address] [place] [address], [place] [address] Sep, [facility] [address] [id number] [address] [place] [address], [place] [address] Aug, [facility] [address] [id number] [address] [place] [address], [place] [address] Aug, [facility] [address] [id number] [address] [place] [address], [place] [address] Aug, [facility] [address] [id number] [address] [place] [address], [place] [address] Aug, [facility] [address] [id number] [address] [place] [address], [place] [address] Jul, [facility] [address] [id number] [address] [place] [address], [place] [address] Jul, [facility] [address] [id number] [address] [place] [address], [place] [address] Jul, [facility] [address] [id number] [address] [place] [address], [place] [address] Jul, [facility] [address] [id number] [address] [place] [address], [place] [address] Jul, [facility] [address] [id number] [address] [place] [address], [place] [address] Jul, [facility] [address] [id number] [address] [place] [address], [place] [address] Jun, [facility] [address] [id number] [address] [place] [address], [place] [address] Jun, [facility] [address] [id number] [address] [place] [address], [place] [address] Jun, [facility] [address] [id number] [address] [place] [address], [place] [address] Jun, [facility] [address] [id number] [address] [place] [address], [place] [address] Jun, [facility] [address] [id number] [address] [place] [address], [place] [address] Jun, [facility] [address] [id number] [address] [place] [address], [place] [address] Jun, [facility] [address] [id number] [address] [place] [address], [place] [address] Jun, [facility] [address] [id number] [address] [place] [address] Jun, [facility] [address] [id number] [address] [place] [address] 02 Jun, 2012 [facility] [address] [id number] [address] [place] [address], [place] [address] 17 May, 2012 [facility] [address] [id number] [address] [place] [address], [place] [address] 08 May, 2012 [facility] [address] [id number] [address] [place] [address], [place] [address] 06 Sep2011 [facility] [address] [id number] [address] [place] [address], [place] [address] Apr, [facility] [address] [id number] [address] [place] [address], [place] [address] Apr, [facility] [address] [id number] [address] [place] [address], [place] [address] Apr, [facility] [address] [id number] [address] [place] [address], [place] [address] Apr, [facility] [address] [id number] [address] [place] [address], [place] [address] Apr, [facility] [address] [id number] [address] [place] [address], [place] [address] Apr, [facility] [address] [id number] [address] [place] [address], [place] [address] Apr, [facility] [address] [id number] [address] [place] [address], [place] [address] Apr, [facility] [address] [id number] [address] [place] [address], [place] [address] Apr, [facility] [address] [id number] [address] [place] [address], [place] [address] Mar, [facility] [address] [id number] [address] [place] [address], [place] [address] Mar, [facility] [address] [id number] [address] [place] [address], [place] [address] Mar, [facility] [address] [id number] [address] [place] [address], [place] [address] Mar, [facility] [address] [id number] [address] [place] [address], [place] [address] Feb, [facility] [address] [id number] [address] [place] [address], [place] [address] Feb, [facility] [address] [id number] [address] [place] [address], [place] [address] Feb, [facility] [address] [id number] [address] [place] [address], [place] [address] January, [facility] [address] [id number] [address] [place] [address], [place] [address] January, [facility] [address] [id number] [address] [place] [address], [place] [address] January, [facility] [address] [id number] [address] [place] [address], [place] [address] January, [facility] [address] [id number] [address] [place] [address], [place] [address] January, [facility] [address] [id number] [address] [place] [address], [place] [address] Dec, [facility] [address] [id number] [address] [place] [address], [place] [address] Dec, [facility] [address] [id number] [address] [place] [address], [place] [address] Dec, [facility] [address] [id number] [address] [place] [address], [place] [address] Oct, [facility] [address] [id number] [address] [place] [address], [place] [address] Oct, [facility] [address] [id number] [address] [place] [address], [place] [address] Oct, [facility] [address] [id number] [address] [place] [address], [place] [address] Sep, [facility] [address] [id number] [address] [place] [address], [place] [address] Sep, [facility] [address] [id number] [address] [place] [address], [place] [address] Aug, [facility] [address] [id number] [address] [place] [address], [place] [address] Jul, [facility] [address] [id number] [address] [place] [address], [place] [address] 08 Jul, 2011 [facility] [address] [id number] [address] [place] [address], [place] [address] 12 Mar, 2011 [facility] [address] [id number] [address] [place] [address], [place] [address] 10 Aug, 2010 [facility] [address] [id number] [address] [place] [address], [place] [address] 10 Jul, 2010 [facility] [address] [id number] [address] [place] [address], [place] [address] Jul, [facility] [address] [id number] [address] [place] [address], [place] [address] Jul, [facility] [address] [id number] [address] [place] [address], [place] [address] Jul, [facility] [address] [id number] [address] [place] [address], [place] [address] 14 Jun, 2010 [facility] [address] [id number] [address] [place] [address], [place] [address] Jun, [facility] [address] [id number] [address] [place] [address], [place] [address] Apr, [facility] [address] [id number] [address] [place] [address], [place] [address] Aug, [facility] [address] [id number] [address] [place] [address], [place] [address] 17 Jul, 2009 [facility] [address] [id number] [address] [place] [address], [place] [address] 17 Jul, [address] [facility] [address] [id number] [address] [place] [address], [place] [address] 13 Jul, 2009 [facility] [address] [id number] [address] [place] [address], [place] [address] 23 Jun, [address] [facility] [address] [id number] [address] [place] [address] 10 May, 2009 [facility] [address] [facility] [id number] [address] [place] [address] Dec, [facility] [address] [facility] [id number] [address] [place] [address] Nov, [facility] [address] [facility] [id number] [address] [place] [address] Oct, [facility] [address] [facility] [id number] [address] [place] [address] Aug, [facility] [address] [facility] [id number] [address] [place] [address] Aug, [facility] [address] [facility] [id number] [address] [place] [address] Jun, IMMUNIZATIONS No Known Immunizations SOCIAL HISTORY [...] x 3 day s 04/2012 Hospitalization History [facility] [place]- Right wrist injury 03/29/2018
--- OUTSIDE RECORDS SUMMARY | 2020-04-09 00:02 | XMS REPORT ---
Author Author Kateryna LOPEZ [facility] Address [address] [place] [address] Care Team Providers Care Spice Grinder Name Role Phone JESSE LOPEZ Unavailable PROBLEMS Type Condition ICD9-CM Code IBG70-DE Code Onset Dates Condition S tatus SNOMED Code Problem Irregular menses N92.6 Active 801 32403 Problem Migraine with aura and without status migrainosu s, not intractable G43.109 Active 8090628 Problem Uncontrolled type 2 diabetes mellitus with hyperglycemia E11.65 Active 117879144 Problem Morbid obesity due to excess calories E66.01 Active 147008838 Problem RLS (restless legs syndrome) G25.81 A ctive 86842860 Problem Morbid obesity E66.01 Active 65565 6002 ALLERGIES No Information ENCOUNTERS Encounter Location Date Diagnosis [facility] [address] [id number] [address] [place] [id number] 30 Feb, 2020 [facility] [address] [id number] [address] [place] [phone] 15 Feb, 2020 Encounter for screening labo ratory testing for COVID-19 virus Z11.59 [facility] [address] [id number] [address] [place] [phone] 08 Feb, 2020 [facility] [address] [id number] [address] [place] [phone] January, [facility] [address] [id number] [address] [place] [phone] 31 Jan, 2020 BMI 50.0-59.9, adult Z68.43 and Vomiting, unspecified R11.10 [facility] [address] [id number] [address] [place] [phone] 14 Jan, 2020 [facility] [address] [id number] [address] [place] [phone] 27 Dec, 2019 [facility] [address] [id number] [address] [place] [phone] 27 Dec, 2019 [facility] [address] [facility] [id number] [address] [place] [id number] 23 Dec, 2019 Uncontrolled type 2 diabetes mellitus with hyperglycemia E11.65 [facility] [address] [id number] [address] [place] [phone] 07 Dec, 2019 [facility] [address] [id number] [address] [place] [id number] 06 Dec, 2019 [facility] [address] [facility] [id number] [address] [place] [id number] Dec, [facility] [address] [facility] [id number] [address] [place] [phone] 30 Nov, 2019 [facility] [address] [id number] [address] [place] [phone] Nov, [facility] [address] [id number] [address] [place] [phone] Nov, [facility] [address] [facility] [id number] [address] [place] [phone] Nov, RLS (restless legs syndrome) G25.81 [facility] [address] [facility] [id number] [address] [place] [phone] 15 Oct, 2019 [facility] [address] [id number] [address] [place] [phone] 09 Oct, 2019 Influenza J11.1 [facility] [address] [facility] [id number] [address] [place] [phone] 16 Sep, 2019 [facility] [address] [facility] [id number] [address] [place] [phone] Sep, [facility] [address] [facility] [id number] [address] [place] [phone] 14 Sep, 2019 [facility] [address] [id number] [address] [place] [phone] 13 Sep, 2019 [facility] [address] [id number] [address] [place] [phone] Sep, Pneumonia of left lower lobe due to infectious organism J18.9 and Migraine with aura and without status migrainosus, not intractable G43.109 [facility] [address] [id number] [address] [place] [phone] Sep, [facility] [address] [id number] [address] [place] [phone] Sep, [facility] [address] [id number] [address] [place] [phone] Sep, [facility] [address] [id number] [address] [place] [phone] Sep, [facility] [address] [id number] [address] [place] [phone] Sep, Pneumonia of left lower lobe due to infectious organism J18.9 and Migraine with aura and without status migrainosus, not intractable G43.109 [facility] [address] [id number] [address] [place] [phone] Aug, Irregular menses N92.6 ; Wel l woman exam Z01.419 ; Pelvic cramping R10.2 and Left breast lump N63.20 [place] [place] [address] [id number] [address] [place] [phone] Aug, [facility] [address] [id number] [address] [place] [phone] Aug, Well woman exam Z01.419 ; Le ft breast lump N63.20 ; Irregular menses N92.6 ; Encounter for immunization Z23 ; Pelvic cramping R10.2 and Screening for cervical cancer Z12.4 [facility] [address] [id number] [address] [place] [phone] Aug, [place] [address] [facility] [id number] [address] [place] [phone] Aug, [facility] [address] [facility] [id number] [address] [place] [phone] Aug, [facility] [address] [facility] [id number] [address] [place] [phone] Jul, [facility] [id number] [place] [phone] Jun, [facility] [id number] [place] [phone] Jun, [facility] [address] [phone] Jun, [facility] [address] [id number] [address] [place] [phone] Jun, BMI 50.0-59.9, adult Z68.43 [facility] [address] [id number] [address] [place] [phone] Jun, [facility] [address] [id number] [address] [place] [phone] May, Acute non-recurrent sinusiti s, unspecified location J01.90 ; Diarrhea, unspecified R19.7 ; Vomiting, unspecified R11.10 and Morbid obesity E66.01 [facility] [id number] [place] [phone] Apr, [facility] [address] [id number] [address] [place] [phone] Apr, Anemia due to other cause, n ot classified D64.89 and D-dimer, elevated R79.89 [facility] [address] [id number] [address] [place] [phone] Apr, [facility] [address] [id number] [address] [place] [phone] Apr, [facility] [address] [id number] [address] [place] [phone] Mar, Anemia due to other cause, n ot classified D64.89 and D-dimer, elevated R79.89 [place] [address] [id number] [address] [place] [phone] Mar, Leg edema, right R60.0 ; Hig h risk medication use Z79.899 and Morbid obesity E66.01 [place] [address] [address] Mar, BMI 50.0-59.9, adult Z68.43 [place] [address] [address] Mar, [place] [address] [address] January, Uncontrolled type 2 diabetes mellitus with hyperglycemia E11.65 ; RLS (restless legs syndrome) G25.81 and Morbid obesity E66.01 [place] [address] [id number] [address] [place] [phone] Oct, Lipoma of right lower extrem ity D17.23 [place] [address] [id number] [address] [place] [phone] Oct, Lipoma of right lower extrem ity D17.23 [place] [address] [id number] [address] [place] [id number] Sep, [facility] [address] [id number] [address] [place] [phone] Sep, [facility] [address] [id number] [address] [place] [phone] Sep, [facility] [address] [id number] [address] [place] [phone] Sep, [facility] [address] [id number] [address] [place] [phone] Sep, [facility] [address] [id number] [address] [place] [phone] Aug, Uncontrolled type 2 diabetes mellitus with hyperglycemia E11.65 ; Morbid obesity due to excess calories E66.01 ; Lipoma of torso D17.1 and BMI 50.0-59.9, adult Z68.43 [facility] [address] [id number] [address] [place] [phone] Jun, Encounter for immunization Z 23 [facility] [address] [id number] [address] [place] [id number] Jul, [facility] [address] [facility] [id number] [address] [place] [phone] Jun, Encounter for immunization Z 23 [facility] [address] [id number] [address] [place] [id number] 30 May, 2016 [facility] [address] [facility] [id number] [address] [place] [phone] Jun, Encounter for immunization Z 23 [facility] [address] [id number] [address] [place] [phone] May, [facility] [address] [id number] [address] [place] [phone] May, [facility] [address] [facility] [id number] [address] [place] [phone] Apr, [facility] [address] [id number] [address] [place] [phone] Feb, [facility] [address] [id number] [address] [place] [phone] Feb, [facility] [address] [id number] [address] [place] [phone] Feb, [facility] [address] [facility] [id number] [address] [place] [phone] January, [facility] [address] [facility] [id number] [address] [place] [phone] January, [facility] [address] [id number] [address] [place] [address], [place] [address] 14 Dec, 2014 [facility] [address] [id number] [address] [place] [address], [place] [address] Dec, [facility] [address] [id number] [address] [place] [address], [place] [address] Nov, [facility] [address] [id number] [address] [place] [address], [place] [address] Nov, [facility] [address] [id number] [address] [place] [address], [place] [address] Nov, [facility] [address] [id number] [address] [place] [address], [place] [address] Nov, [facility] [address] [id number] [address] [place] [address], [place] [address] Nov, [facility] [address] [id number] [address] [place] [address], [place] [address] Nov, [facility] [address] [id number] [address] [place] [address], [place] [address] Nov, [facility] [address] [id number] [address] [place] [address], [place] [address] Oct, [facility] [address] [id number] [address] [place] [address], [place] [address] Oct, [facility] [address] [id number] [address] [place] [phone] Oct, [facility] [address] [id number] [address] [place] [address], [place] [address] Oct, [facility] [address] [id number] [address] [place] [address], [place] [address] Oct, [facility] [address] [id number] [address] [place] [address], [place] [address] Sep, [facility] [address] [id number] [address] [place] [phone] Sep, [facility] [address] [id number] [address] [place] [address], [place] [address] Sep, [facility] [address] [id number] [address] [place] [address], [place] [address] Sep, [facility] [address] [id number] [address] [place] [address], [place] [address] Sep, [facility] [address] [id number] [address] [place] [address], [place] [address] Sep, [facility] [address] [id number] [address] [place] [address], [place] [address] Sep, [facility] [address] [id number] [address] [place] [address], [place] [address] Sep, [facility] [address] [id number] [address] [place] [address], [place] [address] Sep, [facility] [address] [id number] [address] [place] [address], [place] [address] Sep, [facility] [address] [id number] [address] [place] [address], [place] [address] Aug, [facility] [address] [id number] [address] [place] [address], [place] [address] Aug, [facility] [address] [id number] [address] [place] [address], [place] [address] Aug, [facility] [address] [id number] [address] [place] [address], [place] [address] Aug, [facility] [address] [id number] [address] [place] [address], [place] [address] Aug, [facility] [address] [id number] [address] [place] [address], [place] [address] Aug, [facility] [address] [id number] [address] [place] [address], [place] [address] Aug, [facility] [address] [id number] [address] [place] [address], [place] [address] Aug, [facility] [address] [id number] [address] [place] [address], [place] [address] Aug, [facility] [address] [id number] [address] [place] [address], [place] [address] Aug, [facility] [address] [id number] [address] [place] [address], [place] [address] Aug, [facility] [address] [id number] [address] [place] [address], [place] [address] Aug, [facility] [address] [id number] [address] [place] [address], [place] [address] Aug, [facility] [address] [id number] [address] [place] [address], [place] [address] 18 Aug, 2014 [facility] [address] [id number] [address] [place] [address], [place] [address] 17 Aug, 2014 [facility] [address] [id number] [address] [place] [address], [place] [address] 17 Aug, 2014 [facility] [address] [id number] [address] [place] [address], [place] [address] 16 Aug, 2014 [facility] [address] [id number] [address] [place] [address], [place] [address] 16 Aug, 2014 [facility] [address] [id number] [address] [place] [address], [place] [address] Aug, [facility] [address] [id number] [address] [place] [address], [place] [address] Aug, [facility] [address] [id number] [address] [place] [address], [place] [address] 08 Aug, 2014 [facility] [address] [id number] [address] [place] [address], [place] [address] 08 Aug, 2014 [facility] [address] [id number] [address] [place] [address], [place] [address] 05 Aug, 2014 [facility] [address] [id number] [address] [place] [address], [place] [address] 05 Aug, 2014 [facility] [address] [id number] [address] [place] [address], [place] [address] Jul, [facility] [address] [id number] [address] [place] [address], [place] [address] Jul, [facility] [address] [id number] [address] [place] [address], [place] [address] 27 Jun, 2014 [facility] [address] [id number] [address] [place] [address], [place] [address] 27 Jun, 2014 [facility] [address] [id number] [address] [place] [address], [place] [address] 17 Jun, 2014 [facility] [address] [id number] [address] [place] [address], [place] [address] 17 Jun, 2014 [facility] [address] [id number] [address] [place] [address], [place] [address] 15 Jun, 2014 [facility] [address] [id number] [address] [place] [address], [place] [address] 15 Jun, 2014 [facility] [address] [id number] [address] [place] [id number] 14 Jun, 2014 [facility] [address] [id number] [address] [place] [address], [place] [address] 14 Jun, 2014 [facility] [address] [id number] [address] [place] [id number] 13 Jun, 2014 [facility] [address] [id number] [address] [place] [address], [place] [address] 13 Jun, 2014 [facility] [address] [id number] [address] [place] [address], [place] [address] 13 Jun, 2014 [facility] [address] [id number] [address] [place] [address], [place] [address] 13 Jun, 2014 [facility] [address] [id number] [address] [place] [address], [place] [address] Jun, [facility] [address] [id number] [address] [place] [address], [place] [address] Jun, [facility] [address] [id number] [address] [place] [address], [place] [address] May, 2013 [facility] [address] [id number] [address] [place] [address], [place] [address] May, 2013 [facility] [address] [id number] [address] [place] [address], [place] [address] May, 2013 [facility] [address] [id number] [address] [place] [address], [place] [address] May, 2013 [facility] [address] [id number] [address] [place] [address], [place] [address] May, 2013 [facility] [address] [id number] [address] [place] [address], [place] [address] May, 2013 [facility] [address] [id number] [address] [place] [address], [place] [address] May, 2013 [facility] [address] [id number] [address] [place] [address], [place] [address] May, [facility] [address] [id number] [address] [place] [address], [place] [address] Apr, [facility] [address] [id number] [address] [place] [address], [place] [address] Apr, [facility] [address] [id number] [address] [place] [address], [place] [address] Apr, [facility] [address] [id number] [address] [place] [address], [place] [address] Apr, [facility] [address] [id number] [address] [place] [address], [place] [address] Apr, [facility] [address] [id number] [address] [place] [address], [place] [address] Apr, [facility] [address] [id number] [facility] [place] [address] Apr, [facility] [address] [id number] [facility] [place] [address] Apr, [facility] [address] [id number] [facility] [place] [address] Apr, [facility] [address] [id number] [address] [place] [address], [place] [address] Mar, [facility] [address] [id number] [address] [place] [address], [place] [address] Mar, [facility] [address] [id number] [address] [place] [address], [place] [address] Mar, [facility] [address] [id number] [address] [place] [address], [place] [address] Feb, [facility] [address] [id number] [address] [place] [address], [place] [address] Feb, [facility] [address] [id number] [address] [place] [address], [place] [address] Feb, [facility] [address] [id number] [address] [place] [address], [place] [address] Feb, [facility] [address] [id number] [address] [place] [address], [place] [address] Feb, [facility] [address] [id number] [address] [place] [address], [place] [address] Feb, [facility] [address] [id number] [address] [place] [address], [place] [address] Feb, [facility] [address] [id number] [address] [place] [address], [place] [address] Feb, [facility] [address] [id number] [address] [place] [address], [place] [address] 16 Feb, 2014 [facility] [address] [id number] [address] [place] [address], [place] [address] Feb, [facility] [address] [id number] [facility] [place] [address] Feb, [facility] [address] [id number] [address] [place] [address], [place] [address] Feb, [facility] [address] [id number] [address] [place] [address], [place] [address] Feb, [facility] [address] [id number] [address] [place] [address], [place] [address] Feb, [facility] [address] [id number] [address] [place] [address], [place] [address] Feb, [facility] [address] [id number] [address] [place] [address], [place] [address] Feb, [facility] [address] [id number] [address] [place] [address], [place] [address] January, [facility] [address] [id number] [address] [place] [address], [place] [address] January, [facility] [address] [id number] [address] [place] [address], [place] [address] January, [facility] [address] [id number] [address] [place] [address], [place] [address] January, [facility] [address] [id number] [address] [place] [address], [place] [address] January, [facility] [address] [id number] [address] [place] [address], [place] [address] January, [facility] [address] [id number] [address] [place] [address], [place] [address] January, [facility] [address] [id number] [address] [place] [address], [place] [address] January, [facility] [address] [id number] [address] [place] [address], [place] [address] January, [facility] [address] [id number] [address] [place] [address], [place] [address] January, [facility] [address] [id number] [address] [place] [address], [place] [address] January, [facility] [address] [id number] [address] [place] [address], [place] [address] January, [facility] [address] [id number] [address] [place] [address], [place] [address] January, [facility] [facility] [address] [id number] [address] [place] [address], [place] [address] January, [facility] [address] [id number] [address] [place] [address], [place] [address] January, [facility] [address] [id number] [address] [place] [address], [place] [address] January, [facility] [address] [id number] [address] [place] [address], [place] [address] January, [facility] [address] [id number] [address] [place] [address], [place] [address] January, [facility] [address] [id number] [address] [place] [address], [place] [address] January, [facility] [address] [id number] [address] [place] [address], [place] [address] January, [facility] [address] [id number] [address] [place] [address], [place] [address] January, [facility] [address] [id number] [address] [place] [address], [place] [address] January, [facility] [address] [id number] [address] [place] [address], [place] [address] January, [facility] [address] [id number] [address] [place] [address], [place] [address] January, [facility] [address] [id number] [address] [place] [address], [place] [address] January, [facility] [address] [id number] [address] [place] [address], [place] [address] January, [facility] [address] [id number] [address] [place] [address], [place] [address] Dec, [facility] [address] [id number] [address] [place] [address], [place] [address] Dec, [facility] [address] [id number] [address] [place] [address], [place] [address] Dec, [facility] [address] [id number] [address] [place] [address], [place] [address] Dec, [facility] [address] [id number] [address] [place] [address], [place] [address] Dec, [facility] [address] [id number] [address] [place] [address], [place] [address] Dec, [facility] [address] [id number] [address] [place] [address], [place] [address] Dec, [facility] [address] [id number] [address] [place] [address], [place] [address] Dec, [facility] [address] [id number] [address] [place] [address], [place] [address] Dec, [facility] [address] [id number] [address] [place] [address], [place] [address] Dec, [facility] [address] [id number] [address] [place] [address], [place] [address] Dec, [facility] [address] [id number] [address] [place] [address], [place] [address] Dec, [facility] [address] [id number] [address] [place] [address], [place] [address] Dec, [facility] [address] [id number] [address] [place] [address], [place] [address] Dec, [facility] [address] [id number] [address] [place] [address], [place] [address] Dec, [facility] [address] [id number] [address] [place] [address], [place] [address] Dec, [facility] [address] [id number] [address] [place] [address], [place] [address] Dec, [facility] [address] [id number] [address] [place] [address], [place] [address] Dec, [facility] [address] [id number] [address] [place] [address], [place] [address] Dec, [facility] [address] [id number] [address] [place] [address], [place] [address] Dec, [facility] [address] [id number] [address] [place] [address], [place] [address] Dec, [facility] [address] [id number] [address] [place] [address], [place] [address] Dec, [facility] [address] [id number] [address] [place] [address], [place] [address] Nov, [facility] [address] [id number] [address] [place] [address], [place] [address] Nov, [facility] [address] [id number] [address] [place] [address], [place] [address] Nov, [facility] [address] [id number] [address] [place] [address], [place] [address] Nov, [facility] [address] [id number] [address] [place] [address], [place] [address] Nov, [facility] [address] [id number] [address] [place] [address], [place] [address] Nov, [facility] [address] [id number] [address] [place] [address], [place] [address] Nov, [facility] [address] [id number] [address] [place] [address], [place] [address] Nov, [facility] [address] [id number] [address] [place] [address], [place] [address] 18 Nov, 2013 [facility] [address] [id number] [address] [place] [address], [place] [address] 18 Nov, 2013 [facility] [address] [id number] [address] [place] [address], [place] [address] 18 Nov, 2013 [facility] [address] [id number] [address] [place] [address], [place] [address] 18 Nov, 2013 [facility] [address] [id number] [address] [place] [address], [place] [address] 14 Nov, 2013 [facility] [address] [id number] [address] [place] [address], [place] [address] 14 Nov, 2013 [facility] [address] [id number] [address] [place] [address], [place] [address] 06 Nov, 2013 [facility] [address] [id number] [address] [place] [address], [place] [address] Nov, [facility] [address] [id number] [address] [place] [address], [place] [address] Oct, [facility] [address] [id number] [address] [place] [address], [place] [address] 28 Oct, 2013 [facility] [address] [id number] [address] [place] [address], [place] [address] 24 Oct, 2013 [facility] [address] [id number] [address] [place] [address], [place] [address] 24 Oct, 2013 [facility] [address] [id number] [address] [place] [address], [place] [address] 24 Oct, 2013 [facility] [address] [id number] [address] [place] [address], [place] [address] 24 Oct, 2013 [facility] [address] [id number] [address] [place] [address], [place] [address] 22 Oct, 2013 [facility] [address] [id number] [address] [place] [address], [place] [address] Oct, [facility] [address] [id number] [address] [place] [address], [place] [address] Oct, [facility] [address] [id number] [address] [place] [address], [place] [address] Oct, [facility] [address] [id number] [address] [place] [address], [place] [address] Oct, [facility] [address] [id number] [address] [place] [address], [place] [address] Oct, [facility] [address] [id number] [address] [place] [address], [place] [address] Oct, [facility] [address] [id number] [address] [place] [address], [place] [address] Oct, [facility] [address] [id number] [address] [place] [address], [place] [address] Oct, [facility] [address] [id number] [address] [place] [address], [place] [address] Sep, [facility] [address] [id number] [address] [place] [address], [place] [address] Sep, [facility] [address] [id number] [address] [place] [address], [place] [address] 15 Sep, 2013 [facility] [address] [id number] [address] [place] [address], [place] [address] Sep, [facility] [address] [id number] [address] [place] [address], [place] [address] Sep, [facility] [address] [id number] [address] [place] [address], [place] [address] Sep, [facility] [address] [id number] [address] [place] [address], [place] [address] Sep, [facility] [address] [id number] [address] [place] [address], [place] [address] Sep, [facility] [address] [id number] [address] [place] [address], [place] [address] Sep, [facility] [address] [id number] [address] [place] [address], [place] [address] Sep, [facility] [address] [id number] [address] [place] [address], [place] [address] Sep, [facility] [address] [id number] [address] [place] [address], [place] [address] Sep, [facility] [address] [id number] [address] [place] [address], [place] [address] Sep, [facility] [address] [id number] [address] [place] [address], [place] [address] Aug, [facility] [address] [id number] [address] [place] [address], [place] [address] Aug, [facility] [address] [id number] [address] [place] [address], [place] [address] Aug, [facility] [address] [id number] [address] [place] [address], [place] [address] Aug, [facility] [address] [id number] [address] [place] [address], [place] [address] Aug, [facility] [address] [id number] [address] [place] [address], [place] [address] 17 Aug, 2013 [facility] [address] [id number] [address] [place] [address], [place] [address] 16 Aug, 2013 [facility] [address] [id number] [address] [place] [address], [place] [address] Aug, [facility] [address] [id number] [address] [place] [address], [place] [address] Aug, [facility] [address] [id number] [address] [place] [address], [place] [address] Aug, [facility] [address] [id number] [address] [place] [address] 10 Aug, 2013 [facility] [address] [id number] [address] [place] [address], [place] [address] 10 Aug, 2013 [facility] [address] [id number] [address] [place] [address], [place] [address] Aug, [facility] [address] [id number] [address] [place] [address], [place] [address] Aug, [facility] [address] [id number] [address] [place] [address] Jul, [facility] [address] [id number] [address] [place] [address], [place] [address] Jul, [facility] [address] [id number] [address] [place] [address], [place] [address] 18 Jul, 2013 [facility] [address] [id number] [address] [place] [address], [place] [address] 18 Jul, 2013 [facility] [address] [id number] [address] [place] [address], [place] [address] 14 Jul, 2013 [facility] [address] [id number] [address] [place] [address] 14 Jul, 2013 [facility] [address] [id number] [address] [place] [address], [place] [address] 14 Jul, 2013 [facility] [address] [id number] [address] [place] [address] 14 Jul, 2013 [facility] [address] [id number] [address] [place] [address] 07 Jul, 2013 [facility] [address] [id number] [address] [place] [address], [place] [address] 07 Jul, 2013 [facility] [address] [id number] [address] [place] [address], [place] [address] 06 Jul, 2013 [facility] [address] [id number] [address] [place] [address], [place] [address] 06 Jul, 2013 [facility] [address] [id number] [address] [place] [address], [place] [address] 05 Jul, 2013 [facility] [address] [id number] [address] [place] [address], [place] [address] 05 Jul, 2013 [facility] [address] [id number] [address] [place] [address], [place] [address] 23 Jun, 2013 [facility] [address] [id number] [address] [place] [address], [place] [address] 23 Jun, 2013 [facility] [address] [id number] [address] [place] [address], [place] [address] 15 Jun, 2013 [facility] [address] [id number] [address] [place] [address], [place] [address] 15 Jun, 2013 [facility] [address] [id number] [address] [place] [address], [place] [address] 14 Jun, 2013 [facility] [address] [id number] [address] [place] [address], [place] [address] 24 May, 2012 [facility] [address] [id number] [address] [place] [address], [place] [address] 20 May, 2012 [facility] [address] [id number] [address] [place] [address], [place] [address] 20 May, 2012 [facility] [address] [id number] [address] [place] [address], [place] [address] 20 May, 2012 [facility] [address] [id number] [address] [place] [address], [place] [address] 19 Sep, 2012 [facility] [address] [id number] [address] [place] [address], [place] [address] 13 Sep, 2012 [facility] [address] [id number] [address] [place] [address], [place] [address] 12 May, 2012 [facility] [address] [id number] [address] [place] [address], [place] [address] 12 May, 2012 [facility] [address] [id number] [address] [place] [address], [place] [address] 11 May, 2012 [facility] [address] [id number] [facility] [place] [address] 11 May, 2012 [facility] [address] [id number] [address] [place] [address], [place] [address] May, 2012 [facility] [address] [id number] [address] [place] [address], [place] [address] 09 May, 2012 [facility] [address] [id number] [address] [place] [address], [place] [address] 05 May, 2012 [facility] [address] [id number] [address] [place] [address], [place] [address] 04 May, 2012 [facility] [address] [id number] [address] [place] [address], [place] [address] 03 May, 2012 [facility] [address] [id number] [address] [place] [address], [place] [address] Apr, [facility] [address] [id number] [address] [place] [address], [place] [address] Apr, [facility] [address] [id number] [address] [place] [address], [place] [address] Apr, [facility] [address] [id number] [address] [place] [address], [place] [address] Apr, [facility] [address] [id number] [address] [place] [address], [place] [address] Apr, [facility] [address] [id number] [address] [place] [address], [place] [address] Apr, [facility] [address] [id number] [address] [place] [address], [place] [address] Apr, [facility] [address] [id number] [address] [place] [address], [place] [address] Apr, [facility] [address] [id number] [address] [place] [address], [place] [address] Apr, [facility] [address] [id number] [address] [place] [address], [place] [address] Mar, [facility] [address] [id number] [address] [place] [address], [place] [address] Mar, [facility] [address] [id number] [address] [place] [address], [place] [address] Mar, [facility] [address] [id number] [address] [place] [address], [place] [address] Mar, [facility] [address] [id number] [address] [place] [address], [place] [address] Mar, [facility] [address] [id number] [address] [place] [address], [place] [address] Mar, [facility] [address] [id number] [address] [place] [address], [place] [address] Mar, [facility] [address] [id number] [address] [place] [address], [place] [address] Mar, [facility] [address] [id number] [address] [place] [address], [place] [address] Mar, [facility] [address] [id number] [address] [place] [address], [place] [address] Mar, [facility] [address] [id number] [address] [place] [address], [place] [address] Mar, [facility] [address] [id number] [address] [place] [address], [place] [address] Feb, [facility] [address] [id number] [address] [place] [address], [place] [address] Feb, [facility] [address] [id number] [address] [place] [address], [place] [address] Feb, [facility] [address] [id number] [address] [place] [address], [place] [address] Feb, [facility] [address] [id number] [address] [place] [address], [place] [address] Feb, [facility] [address] [id number] [address] [place] [address], [place] [address] Feb, [facility] [address] [id number] [address] [place] [address], [place] [address] Feb, [facility] [address] [id number] [address] [place] [address], [place] [address] Feb, [facility] [address] [id number] [address] [place] [address], [place] [address] Feb, [facility] [address] [id number] [address] [place] [address], [place] [address] January, [facility] [address] [id number] [address] [place] [address], [place] [address] January, [facility] [address] [id number] [address] [place] [address], [place] [address] January, [facility] [address] [id number] [address] [place] [address], [place] [address] January, [facility] [address] [id number] [address] [place] [address], [place] [address] January, [facility] [address] [id number] [address] [place] [address], [place] [address] January, [facility] [address] [id number] [address] [place] [address], [place] [address] January, [facility] [address] [id number] [address] [place] [address], [place] [address] January, [facility] [address] [id number] [address] [place] [address], [place] [address] January, [facility] [address] [id number] [address] [place] [address], [place] [address] January, [facility] [address] [id number] [address] [place] [address], [place] [address] January, [facility] [address] [id number] [address] [place] [address], [place] [address] January, [facility] [address] [id number] [address] [place] [address], [place] [address] January, [facility] [address] [id number] [address] [place] [address], [place] [address] January, [facility] [address] [id number] [address] [place] [address], [place] [address] January, [facility] [address] [id number] [address] [place] [address], [place] [address] January, [facility] [address] [id number] [address] [place] [address], [place] [address] January, [facility] [address] [id number] [address] [place] [address], [place] [address] January, [facility] [address] [id number] [address] [place] [address], [place] [address] January, [facility] [address] [id number] [address] [place] [address], [place] [address] January, [facility] [address] [id number] [address] [place] [address], [place] [address] January, [facility] [address] [id number] [address] [place] [address], [place] [address] January, [facility] [address] [id number] [address] [place] [address], [place] [address] January, [facility] [address] [id number] [address] [place] [address], [place] [address] Dec, [facility] [address] [id number] [address] [place] [address], [place] [address] Dec, [facility] [address] [id number] [address] [place] [address], [place] [address] Dec, [facility] [address] [id number] [address] [place] [address], [place] [address] Dec, [facility] [address] [id number] [address] [place] [address], [place] [address] Dec, [facility] [address] [id number] [address] [place] [address], [place] [address] Nov, [facility] [address] [id number] [address] [place] [address], [place] [address] Oct, [facility] [address] [id number] [address] [place] [address], [place] [address] Oct, [facility] [address] [id number] [address] [place] [address], [place] [address] Oct, [facility] [address] [id number] [address] [place] [address], [place] [address] Oct, [facility] [address] [id number] [address] [place] [address], [place] [address] Oct, [facility] [address] [id number] [address] [place] [address], [place] [address] Sep, [facility] [address] [id number] [address] [place] [address], [place] [address] Sep, [facility] [address] [id number] [address] [place] [address], [place] [address] Sep, [facility] [address] [id number] [address] [place] [address], [place] [address] Aug, [facility] [address] [id number] [address] [place] [address], [place] [address] Aug, [facility] [address] [id number] [address] [place] [address], [place] [address] Aug, [facility] [facility] [address] [id number] [address] [place] [address], [place] [address] Aug, [facility] [address] [id number] [address] [place] [address], [place] [address] Jul, [facility] [address] [id number] [address] [place] [address], [place] [address] Jul, [facility] [address] [id number] [address] [place] [address], [place] [address] Jul, [facility] [address] [id number] [address] [place] [address], [place] [address] Jul, [facility] [address] [id number] [address] [place] [address], [place] [address] Jul, [facility] [address] [id number] [address] [place] [address], [place] [address] Jul, [facility] [address] [id number] [address] [place] [address], [place] [address] Jun, [facility] [address] [id number] [address] [place] [address], [place] [address] Jun, [facility] [address] [id number] [address] [place] [address], [place] [address] Jun, [facility] [address] [id number] [address] [place] [id number] Jun, [facility] [address] [id number] [address] [place] [address], [place] [address] Jun, [facility] [address] [id number] [address] [place] [id number] Jun, [facility] [address] [id number] [address] [place] [address] Jun, [facility] [address] [id number] [address] [place] [id number] Jun, [facility] [address] [id number] [address] [place] [id number] Jun, [facility] [address] [id number] [address] [place] [id number] Jun, [facility] [address] [id number] [address] [place] [address], [place] [address] May, [facility] [address] [id number] [address] [place] [address], [place] [address] 08 May, 2012 [facility] [address] [id number] [address] [place] [address], [place] [address] May, [facility] [address] [id number] [address] [place] [address], [place] [address] Apr, [facility] [address] [id number] [address] [place] [address], [place] [address] Apr, [facility] [address] [id number] [address] [place] [address], [place] [address] Apr, [facility] [address] [id number] [address] [place] [address], [place] [address] Apr, [facility] [address] [id number] [address] [place] [address], [place] [address] Apr, [facility] [address] [id number] [address] [place] [address], [place] [address] Apr, [facility] [address] [id number] [address] [place] [address], [place] [address] Apr, [facility] [address] [id number] [address] [place] [address], [place] [address] Apr, [facility] [address] [id number] [address] [place] [address], [place] [address] Apr, [facility] [address] [id number] [address] [place] [address], [place] [address] Mar, [facility] [address] [id number] [address] [place] [address], [place] [address] Mar, [facility] [address] [id number] [address] [place] [address], [place] [address] Mar, [facility] [address] [id number] [address] [place] [address], [place] [address] Mar, [facility] [address] [id number] [address] [place] [address], [place] [address] Feb, [facility] [address] [id number] [address] [place] [address], [place] [address] Feb, [facility] [address] [id number] [address] [place] [address], [place] [address] Feb, [facility] [address] [id number] [address] [place] [address], [place] [address] January, [facility] [address] [id number] [address] [place] [address], [place] [address] January, [facility] [address] [id number] [address] [place] [address], [place] [address] January, [facility] [address] [id number] [address] [place] [address], [place] [address] January, [facility] [address] [id number] [address] [place] [address], [place] [address] January, [facility] [address] [id number] [address] [place] [address], [place] [address] Dec, [facility] [address] [id number] [address] [place] [address], [place] [address] Dec, [facility] [address] [id number] [address] [place] [address], [place] [address] Dec, [facility] [address] [id number] [address] [place] [address], [place] [address] Oct, [facility] [address] [id number] [address] [place] [address], [place] [address] Oct, [facility] [address] [id number] [address] [place] [address], [place] [address] Oct, [facility] [address] [id number] [address] [place] [address], [place] [address] Sep, [facility] [address] [id number] [address] [place] [address], [place] [address] Sep, [facility] [address] [id number] [address] [place] [id number] 07 Aug, 2011 [facility] [address] [id number] [address] [place] [address], [place] [address] 08 Jul, 2011 [facility] [address] [id number] [address] [place] [id number] 08 Jul, 2011 [facility] [address] [id number] [address] [place] [address], [place] [address] Mar, [facility] [address] [id number] [address] [place] [id number] Aug, [facility] [address] [id number] [address] [place] [address], [place] [address] 10 Jul, 2010 [facility] [address] [id number] [address] [place] [address], [place] [address] Jul, [facility] [address] [id number] [address] [place] [address], [place] [address] Jul, [facility] [address] [id number] [address] [place] [address], [place] [address] Jul, [facility] [address] [id number] [address] [place] [id number] 14 Jun, 2010 [facility] [address] [id number] [address] [place] [address], [place] [address] Jun, [facility] [address] [id number] [address] [place] [address] Apr, [facility] [address] [id number] [address] [place] [id number] Aug, [facility] [address] [id number] [address] [place] [address], [place] [address] Jul, [facility] [address] [id number] [address] [place] [id number] 17 Jul, 2009 [facility] [address] [id number] [address] [place] [address], [place] [address] 13 Jul, 2009 [facility] [address] [id number] [address] [place] [id number] Jun, [facility] [address] [facility] [id number] [address] [place] [id number] 10 May, 2009 [facility] [address] [facility] [id number] [address] [place] [id number] Dec, [facility] [address] [facility] [id number] [address] [place] [id number] Nov, [facility] [address] [facility] [id number] [address] [place] [id number] Oct, [facility] [address] [facility] [id number] [address] [place] [id number] Aug, [facility] [address] [facility] [id number] [address] [place] [id number] Aug, [facility] [address] [facility] [id number] [address] [place] [address] Jun, IMMUNIZATIONS No Known Immunizations SOCIAL HISTORY [...] x 3 day s 04/2012 Hospitalization History [facility] [place]- Right wrist injury 03/29/2018
--- OUTSIDE RECORDS SUMMARY | 2020-04-09 00:03 | XMS REPORT ---
Author Author Kateryna Turner Doctor Organization [facility] Address Unknown Phone Unavailable Care Team Providers Care Concrete Vibrator Operator Name Role Phone Migration, Doctor Unavailable Unavailable PROBLEMS Type Condition ICD9-CM Code EWW83-FA Code Onset Dates Condition S tatus SNOMED Code Problem Irregular menses N92.6 Active 801 02004 Problem Migraine with aura and without status migrainosu s, not intractable G43.109 Active 3965255 Problem Uncontrolled type 2 diabetes mellitus with hyperglycemia E11.65 Active 696574328 Problem Morbid obesity due to excess calories E66.01 Active 191743773 Problem RLS (restless legs syndrome) G25.81 A ctive 37095990 Problem Morbid obesity E66.01 Active 48417 6002 ALLERGIES No Information ENCOUNTERS Encounter Location Date Diagnosis [facility] [address] [facility] [id number] [address] [place] [address] 15 Feb, 2020 Encounter for screening labo ratory testing for COVID-19 virus Z11.59 [facility] [address] [place] [id number] [address] [place] [address] 08 Feb, 2020 [facility] [address] [id number] [address] [place] [address] January, [facility] [address] [id number] [address] [place] [address] January, BMI 50.0-59.9, adult Z68.43 and Vomiting, unspecified R11.10 [facility] [address] [facility] [id number] [address] [place] [address] January, [facility] [address] [id number] [address] [place] [address] Dec, [facility] [address] [facility] [id number] [address] [place] [address] Dec, [facility] [address] [id number] [address] [place] [address] 23 Dec, 2019 Uncontrolled type 2 diabetes mellitus with hyperglycemia E11.65 [facility] [address] [id number] [address] [place] [address] 07 Dec, 2019 [facility] [address] [id number] [address] [place] [address] 06 Dec, 2019 [facility] [address] [id number] [address] [place] [address] 03 Dec, 2019 [facility] [address] [id number] [address] [place] [address] 30 Nov, 2019 [facility] [address] [id number] [address] [place] [address] 28 Nov, 2019 [facility] [address] [id number] [address] [place] [address] Nov, [facility] [address] [facility] [id number] [address] [place] [address] Nov, RLS (restless legs syndrome) G25.81 [facility] [address] [id number] [address] [place] [address] 15 Oct, 2019 [facility] [address] [id number] [address] [place] [address] 09 Oct, 2019 Influenza J11.1 [facility] [address] [id number] [address] [place] [address] 16 Sep, 2019 [facility] [address] [id number] [address] [place] [address] 14 Sep, 2019 [facility] [address] [id number] [address] [place] [address] 14 Sep, 2019 [facility] [address] [id number] [address] [place] [address] 13 Sep, 2019 [facility] [address] [id number] [address] [place] [address] Sep, Pneumonia of left lower lobe due to infectious organism J18.9 and Migraine with aura and without status migrainosus, not intractable G43.109 [facility] [address] [id number] [address] [place] [address] Sep, [facility] [address] [id number] [address] [place] [address] Sep, [facility] [address] [id number] [address] [place] [address] Sep, [facility] [address] [id number] [address] [place] [address] Sep, [facility] [address] [id number] [address] [place] [address] Sep, Pneumonia of left lower lobe due to infectious organism J18.9 and Migraine with aura and without status migrainosus, not intractable G43.109 [facility] [address] [id number] [address] [place] [address] Aug, Irregular menses N92.6 ; Wel l woman exam Z01.419 ; Pelvic cramping R10.2 and Left breast lump N63.20 [place] [address] [id number] [address] [place] [address] Aug, [place] [address] [id number] [address] [place] [address] Aug, Well woman exam Z01.419 ; Le ft breast lump N63.20 ; Irregular menses N92.6 ; Encounter for immunization Z23 ; Pelvic cramping R10.2 and Screening for cervical cancer Z12.4 [facility] [address] [id number] [address] [place] [address] Aug, [facility] [address] [id number] [address] [place] [address] Aug, [facility] [address] [id number] [address] [place] [address] Aug, [place] [address] [facility] [id number] [address] [place] [address] Jul, [facility] [address] [facility] [id number] [place] [address] Jun, [facility] [address] [facility] [id number] [address] [place] [address] Jun, [facility] [address] [id number] [place] [address] Jun, [facility] [address] [facility] [id number] [address] [place] [address] Jun, BMI 50.0-59.9, adult Z68.43 [facility] [address] [address] [id number] [address] [place] [address] Jun, [facility] [address] [id number] [address] [place] [address] May, Acute non-recurrent sinusiti s, unspecified location J01.90 ; Diarrhea, unspecified R19.7 ; Vomiting, unspecified R11.10 and Morbid obesity E66.01 [facility] [address] [place] [id number] [address] [place] [address] Apr, [facility] [address] [id number] [address] [place] [address] Apr, Anemia due to other cause, n ot classified D64.89 and D-dimer, elevated R79.89 [facility] [address] [id number] [address] [place] [address] Apr, [facility] [address] [facility] [id number] [address] [place] [address] Apr, [facility] [address] [id number] [address] [place] [address] Mar, Anemia due to other cause, n ot classified D64.89 and D-dimer, elevated R79.89 [facility] [address] [id number] [address] [place] [address] Mar, Leg edema, right R60.0 ; Hig h risk medication use Z79.899 and Morbid obesity E66.01 [place] [address] [id number] [address] [place] [address] Mar, BMI 50.0-59.9, adult Z68.43 [place] [address] [place] [id number] [place] [address] Mar, [place] [address] [place] [id number] [address] [place] [address] January, Uncontrolled type 2 diabetes mellitus with hyperglycemia E11.65 ; RLS (restless legs syndrome) G25.81 and Morbid obesity E66.01 [place] [address] [id number] [address] [place] [address] Oct, Lipoma of right lower extrem ity D17.23 [place] [address] [place] [id number] [address] [place] [address] Oct, Lipoma of right lower extrem ity D17.23 [place] [address] [place] [id number] [address] [place] [address] Sep, [place] [address] [place] [id number] [address] [place] [address] Sep, [place] [address] [id number] [address] [place] [address] Sep, [place] [address] [place] [id number] [address] [place] [address] Sep, [place] [address] [facility] [id number] [address] [place] [address] Sep, [place] [address] [place] [id number] [address] [place] [address] Aug, Uncontrolled type 2 diabetes mellitus with hyperglycemia E11.65 ; Morbid obesity due to excess calories E66.01 ; Lipoma of torso D17.1 and BMI 50.0-59.9, adult Z68.43 [facility] [address] [id number] [address] [place] [address] Jun, Encounter for immunization Z 23 [facility] [address] [id number] [address] [place] [address] Jul, [facility] [address] [id number] [address] [place] [address] Jun, Encounter for immunization Z 23 [facility] [address] [id number] [address] [place] [address] 30 May, 2016 [facility] [address] [id number] [address] [place] [address] Jun, Encounter for immunization Z 23 [facility] [address] [id number] [address] [place] [address] 29 May, 2015 [facility] [address] [id number] [address] [place] [address] May, [facility] [address] [id number] [address] [place] [address] Apr, [facility] [address] [id number] [address] [place] [address] Feb, [facility] [address] [id number] [address] [place] [address] Feb, [facility] [address] [id number] [address] [place] [address] Feb, [facility] [address] [id number] [address] [place] [address] January, [facility] [address] [id number] [address] [place] [address] January, [facility] [address] [id number] [address] [place] [address] Dec, [facility] [address] [id number] [address] [place] [address] Dec, [facility] [address] [id number] [address] [place] [address], [place] [address] Nov, [facility] [address] [id number] [address] [place] [address], [place] [address] Nov, [facility] [address] [id number] [address] [place] [address], [place] [address] Nov, [facility] [address] [id number] [address] [place] [address], [place] [address] Nov, [facility] [address] [id number] [address] [place] [address], [place] [address] Nov, [facility] [address] [id number] [address] [place] [address], [place] [address] Nov, [facility] [address] [id number] [address] [place] [address], [place] [address] Nov, [facility] [address] [id number] [address] [place] [address], [place] [address] Oct, [facility] [address] [id number] [address] [place] [address], [place] [address] Oct, [facility] [address] [id number] [address] [place] [address], [place] [address] Oct, [facility] [address] [id number] [address] [place] [address], [place] [address] Oct, [facility] [address] [id number] [address] [place] [address], [place] [address] Oct, [facility] [address] [id number] [address] [place] [address], [place] [address] Sep, [facility] [address] [id number] [address] [place] [address], [place] [address] Sep, [facility] [address] [id number] [address] [place] [address], [place] [address] Sep, [facility] [address] [id number] [address] [place] [address], [place] [address] Sep, [facility] [address] [id number] [address] [place] [address], [place] [address] Sep, [facility] [address] [id number] [address] [place] [address], [place] [address] Sep, [facility] [address] [id number] [address] [place] [address], [place] [address] Sep, [facility] [address] [id number] [address] [place] [address], [place] [address] Sep, [facility] [address] [id number] [address] [place] [address], [place] [address] Sep, [facility] [address] [id number] [address] [place] [address], [place] [address] Sep, [facility] [address] [id number] [address] [place] [address], [place] [address] Aug, [facility] [address] [id number] [address] [place] [address], [place] [address] Aug, [facility] [address] [id number] [address] [place] [address], [place] [address] Aug, [facility] [address] [id number] [address] [place] [address], [place] [address] Aug, [facility] [address] [id number] [address] [place] [address], [place] [address] Aug, [facility] [address] [id number] [address] [place] [address], [place] [address] Aug, [facility] [address] [id number] [address] [place] [address], [place] [address] Aug, [facility] [address] [id number] [address] [place] [address], [place] [address] Aug, [facility] [address] [id number] [address] [place] [address], [place] [address] Aug, [facility] [address] [id number] [address] [place] [address], [place] [address] Aug, [facility] [address] [id number] [address] [place] [address], [place] [address] Aug, [facility] [address] [id number] [address] [place] [address], [place] [address] Aug, [facility] [address] [id number] [address] [place] [address], [place] [address] Aug, [facility] [address] [id number] [address] [place] [address], [place] [address] Aug, [facility] [address] [id number] [address] [place] [address], [place] [address] Aug, [facility] [address] [id number] [address] [place] [address], [place] [address] Aug, [facility] [address] [id number] [address] [place] [address], [place] [address] Aug, [facility] [address] [id number] [address] [place] [address], [place] [address] Aug, [facility] [address] [id number] [address] [place] [address], [place] [address] Aug, [facility] [address] [id number] [address] [place] [address], [place] [address] Aug, [facility] [address] [id number] [address] [place] [address], [place] [address] Aug, [facility] [address] [id number] [address] [place] [address], [place] [address] Aug, [facility] [address] [id number] [address] [place] [address], [place] [address] 05 Aug, 2014 [facility] [address] [id number] [address] [place] [address], [place] [address] 05 Aug, 2014 [facility] [address] [id number] [address] [place] [address], [place] [address] 07 Jul, 2014 [facility] [address] [id number] [address] [place] [address], [place] [address] 07 Jul, 2014 [facility] [address] [id number] [address] [place] [address], [place] [address] 27 Jun, 2014 [facility] [address] [id number] [address] [place] [address], [place] [address] 27 Jun, 2014 [facility] [address] [id number] [address] [place] [address] 17 Jun, 2014 [facility] [address] [id number] [address] [place] [address], [place] [address] 17 Jun, 2014 [facility] [address] [id number] [address] [place] [address] 15 Jun, 2014 [facility] [address] [id number] [address] [place] [address], [place] [address] 15 Jun, 2014 [facility] [address] [id number] [address] [place] [address] 14 Jun, 2014 [facility] [address] [id number] [address] [place] [address], [place] [address] 14 Jun, 2014 [facility] [address] [id number] [address] [place] [address] 13 Jun, 2014 [facility] [address] [id number] [address] [place] [address] 13 Jun, 2014 [facility] [address] [id number] [address] [place] [address] 13 Jun, 2014 [facility] [address] [id number] [address] [place] [address], [place] [address] 13 Jun, 2014 [facility] [address] [id number] [address] [place] [address] 06 Jun, 2014 [facility] [address] [id number] [address] [place] [address], [place] [address] 06 Jun, 2014 [facility] [address] [id number] [facility] [place] [address] May, 2013 [facility] [address] [id number] [facility] [place] [address] May, 2013 [facility] [address] [id number] [facility] [place] [address] May, 2013 [facility] [address] [id number] [address] [place] [address], [place] [address] May, 2013 [facility] [address] [id number] [address] [place] [address], [place] [address] May, 2013 [facility] [address] [id number] [address] [place] [address], [place] [address] May, 2013 [facility] [address] [id number] [address] [place] [address], [place] [address] May, 2013 [facility] [address] [id number] [address] [place] [address], [place] [address] May, 2013 [facility] [address] [id number] [address] [place] [address], [place] [address] Apr, [facility] [address] [id number] [address] [place] [address], [place] [address] Apr, [facility] [address] [id number] [address] [place] [address], [place] [address] Apr, [facility] [address] [id number] [address] [place] [address], [place] [address] Apr, [facility] [address] [id number] [address] [place] [address], [place] [address] Apr, [facility] [address] [id number] [address] [place] [address], [place] [address] Apr, [facility] [address] [id number] [address] [place] [address], [place] [address] Apr, [facility] [address] [id number] [address] [place] [address], [place] [address] Apr, [facility] [address] [id number] [address] [place] [address], [place] [address] Apr, [facility] [address] [id number] [address] [place] [address], [place] [address] Mar, [facility] [address] [id number] [address] [place] [address], [place] [address] Mar, [facility] [address] [id number] [address] [place] [address], [place] [address] Mar, [facility] [address] [id number] [address] [place] [address], [place] [address] Feb, [facility] [address] [id number] [address] [place] [address], [place] [address] Feb, [facility] [address] [id number] [address] [place] [address], [place] [address] Feb, [facility] [address] [id number] [address] [place] [address], [place] [address] Feb, [facility] [address] [id number] [address] [place] [address], [place] [address] Feb, [facility] [address] [id number] [address] [place] [address], [place] [address] Feb, [facility] [address] [id number] [address] [place] [address], [place] [address] Feb, [facility] [address] [id number] [address] [place] [address], [place] [address] Feb, [facility] [address] [id number] [address] [place] [address], [place] [address] Feb, [facility] [address] [id number] [address] [place] [address], [place] [address] Feb, [facility] [address] [id number] [address] [place] [address], [place] [address] 10 Feb, 2014 [facility] [address] [id number] [address] [place] [address], [place] [address] Feb, [facility] [address] [id number] [facility] [place] [address] Feb, [facility] [address] [id number] [address] [place] [address], [place] [address] Feb, [facility] [address] [id number] [address] [place] [address], [place] [address] Feb, [facility] [address] [id number] [address] [place] [address], [place] [address] Feb, [facility] [address] [id number] [address] [place] [address], [place] [address] January, [facility] [address] [id number] [address] [place] [address], [place] [address] January, [facility] [address] [id number] [address] [place] [address], [place] [address] January, [facility] [address] [id number] [address] [place] [address], [place] [address] January, [facility] [address] [id number] [address] [place] [address], [place] [address] January, [facility] [address] [id number] [address] [place] [address], [place] [address] January, [facility] [address] [id number] [address] [place] [address], [place] [address] January, [facility] [address] [id number] [address] [place] [address], [place] [address] January, [facility] [address] [id number] [address] [place] [address], [place] [address] January, [facility] [address] [id number] [address] [place] [address], [place] [address] January, [facility] [address] [id number] [address] [place] [address], [place] [address] January, [facility] [address] [id number] [facility] [place] [address] January, [facility] [address] [id number] [facility] [place] [address] January, [facility] [address] [id number] [facility] [place] [address] January, [facility] [address] [id number] [address] [place] [address], [place] [address] January, [facility] [address] [id number] [address] [place] [address], [place] [address] January, [facility] [address] [address] [id number] [address] [place] [address], [place] [address] January, [facility] [address] [id number] [address] [place] [address], [place] [address] January, [facility] [address] [id number] [address] [place] [address], [place] [address] January, [facility] [address] [id number] [address] [place] [address], [place] [address] January, [facility] [address] [id number] [address] [place] [address], [place] [address] January, [facility] [address] [id number] [address] [place] [address], [place] [address] January, [facility] [address] [id number] [address] [place] [address], [place] [address] January, [facility] [address] [id number] [address] [place] [address], [place] [address] January, [facility] [address] [id number] [address] [place] [address], [place] [address] January, [facility] [address] [id number] [address] [place] [address], [place] [address] January, [facility] [address] [id number] [address] [place] [address], [place] [address] Dec, [facility] [address] [id number] [facility] [place] [address] Dec, [facility] [address] [id number] [facility] [place] [address] Dec, [facility] [address] [id number] [address] [place] [address], [place] [address] Dec, [facility] [address] [id number] [address] [place] [address], [place] [address] Dec, [facility] [address] [id number] [address] [place] [address], [place] [address] Dec, [facility] [address] [id number] [address] [place] [address], [place] [address] Dec, [facility] [address] [id number] [address] [place] [address], [place] [address] Dec, [facility] [address] [id number] [address] [place] [address], [place] [address] Dec, [facility] [address] [id number] [address] [place] [address], [place] [address] Dec, [facility] [address] [id number] [address] [place] [address], [place] [address] Dec, [facility] [address] [id number] [address] [place] [address], [place] [address] Dec, [facility] [address] [id number] [address] [place] [address], [place] [address] Dec, [facility] [address] [id number] [address] [place] [address], [place] [address] Dec, [facility] [address] [id number] [address] [place] [address], [place] [address] Dec, [facility] [address] [id number] [address] [place] [address], [place] [address] Dec, [facility] [address] [id number] [facility] [place] [address] 08 Dec, 2013 [facility] [address] [id number] [address] [place] [address], [place] [address] Dec, [facility] [address] [id number] [address] [place] [address], [place] [address] Dec, [facility] [address] [id number] [address] [place] [address], [place] [address] Dec, [facility] [address] [id number] [address] [place] [address], [place] [address] Dec, [facility] [address] [id number] [address] [place] [address], [place] [address] Dec, [facility] [address] [id number] [address] [place] [address], [place] [address] Nov, [facility] [address] [id number] [address] [place] [address], [place] [address] Nov, [facility] [address] [id number] [address] [place] [address], [place] [address] Nov, [facility] [address] [id number] [address] [place] [address], [place] [address] Nov, [facility] [address] [id number] [address] [place] [address], [place] [address] Nov, [facility] [address] [id number] [address] [place] [address], [place] [address] Nov, [facility] [address] [id number] [address] [place] [address], [place] [address] Nov, [facility] [address] [id number] [address] [place] [address], [place] [address] Nov, [facility] [address] [id number] [address] [place] [address], [place] [address] Nov, [facility] [address] [id number] [address] [place] [address], [place] [address] Nov, [facility] [address] [id number] [facility] [place] [address] 18 Nov, 2013 [facility] [address] [id number] [address] [place] [address], [place] [address] 18 Nov, 2013 [facility] [address] [id number] [address] [place] [address], [place] [address] 14 Nov, 2013 [facility] [address] [id number] [address] [place] [address], [place] [address] 14 Nov, 2013 [facility] [address] [id number] [address] [place] [address], [place] [address] Nov, [facility] [address] [id number] [address] [place] [address], [place] [address] Nov, [facility] [address] [id number] [address] [place] [address], [place] [address] Oct, [facility] [address] [id number] [address] [place] [address], [place] [address] Oct, [facility] [address] [id number] [address] [place] [address], [place] [address] Oct, [facility] [address] [id number] [address] [place] [address], [place] [address] Oct, [facility] [address] [id number] [address] [place] [address], [place] [address] Oct, [facility] [address] [id number] [address] [place] [address], [place] [address] Oct, [facility] [address] [id number] [address] [place] [address], [place] [address] Oct, [facility] [address] [id number] [address] [place] [address], [place] [address] Oct, [facility] [address] [id number] [address] [place] [address], [place] [address] Oct, [facility] [address] [id number] [facility] [place] [address] 17 Oct, 2013 [facility] [address] [id number] [address] [place] [address], [place] [address] 14 Oct, 2013 [facility] [address] [id number] [address] [place] [address], [place] [address] 14 Oct, 2013 [facility] [address] [id number] [address] [place] [address], [place] [address] 04 Oct, 2013 [facility] [address] [id number] [address] [place] [address], [place] [address] 04 Oct, 2013 [facility] [address] [id number] [address] [place] [address], [place] [address] 03 Oct, 2013 [facility] [address] [id number] [address] [place] [address], [place] [address] Sep, [facility] [address] [id number] [address] [place] [address], [place] [address] Sep, [facility] [address] [id number] [address] [place] [address], [place] [address] Sep, [facility] [address] [id number] [address] [place] [address], [place] [address] Sep, [facility] [address] [id number] [address] [place] [address], [place] [address] Sep, [facility] [address] [id number] [address] [place] [address], [place] [address] Sep, [facility] [address] [id number] [address] [place] [address], [place] [address] Sep, [facility] [address] [id number] [address] [place] [address], [place] [address] Sep, [facility] [address] [id number] [address] [place] [address], [place] [address] Sep, [facility] [address] [id number] [address] [place] [address], [place] [address] Sep, [facility] [address] [id number] [address] [place] [address], [place] [address] Sep, [facility] [address] [id number] [address] [place] [address], [place] [address] Sep, [facility] [address] [id number] [address] [place] [address], [place] [address] Sep, [facility] [address] [id number] [address] [place] [address], [place] [address] Aug, [facility] [address] [id number] [address] [place] [address], [place] [address] Aug, [facility] [address] [id number] [address] [place] [address], [place] [address] Aug, [facility] [address] [id number] [address] [place] [address], [place] [address] Aug, [facility] [address] [id number] [address] [place] [address], [place] [address] Aug, [facility] [address] [id number] [address] [place] [address], [place] [address] 17 Aug, 2013 [facility] [address] [id number] [address] [place] [address], [place] [address] 16 Aug, 2013 [facility] [address] [id number] [address] [place] [address], [place] [address] 16 Aug, 2013 [facility] [address] [id number] [address] [place] [address], [place] [address] 12 Aug, 2013 [facility] [address] [id number] [address] [place] [address], [place] [address] Aug, [facility] [address] [id number] [address] [place] [address], [place] [address] 10 Aug, 2013 [facility] [address] [id number] [address] [place] [address], [place] [address] 10 Aug, 2013 [facility] [address] [id number] [address] [place] [address], [place] [address] 02 Aug, 2013 [facility] [address] [id number] [address] [place] [address], [place] [address] 02 Aug, 2013 [facility] [address] [id number] [address] [place] [address], [place] [address] 19 Jul, 2013 [facility] [address] [id number] [address] [place] [address], [place] [address] 19 Jul, 2013 [facility] [address] [id number] [address] [place] [address], [place] [address] 18 Jul, 2013 [facility] [address] [id number] [address] [place] [address], [place] [address] 18 Jul, 2013 [facility] [address] [id number] [address] [place] [address], [place] [address] 14 Jul, 2013 [facility] [address] [id number] [address] [place] [address], [place] [address] 14 Jul, 2013 [facility] [address] [id number] [address] [place] [address], [place] [address] 14 Jul, 2013 [facility] [address] [id number] [address] [place] [address], [place] [address] 14 Jul, 2013 [facility] [address] [id number] [address] [place] [address], [place] [address] 07 Jul, 2013 [facility] [address] [id number] [address] [place] [address], [place] [address] 07 Jul, 2013 [facility] [address] [id number] [address] [place] [address], [place] [address] 06 Jul, 2013 [facility] [address] [id number] [address] [place] [address], [place] [address] 06 Jul, 2013 [facility] [address] [id number] [address] [place] [address], [place] [address] 05 Jul, 2013 [facility] [address] [id number] [address] [place] [address] 05 Jul, 2013 [facility] [address] [id number] [address] [place] [address], [place] [address] 23 Jun, 2013 [facility] [address] [id number] [address] [place] [address], [place] [address] 23 Jun, 2013 [facility] [address] [id number] [address] [place] [address], [place] [address] 15 Jun, 2013 [facility] [address] [id number] [address] [place] [address], [place] [address] 15 Jun, 2013 [facility] [address] [id number] [address] [place] [address], [place] [address] 14 Jun, 2013 [facility] [address] [id number] [address] [place] [address], [place] [address] 24 May, 2012 [facility] [address] [id number] [address] [place] [address], [place] [address] 20 May, 2012 [facility] [address] [id number] [address] [place] [address], [place] [address] 20 May, 2012 [facility] [address] [id number] [address] [place] [address], [place] [address] 20 May, 2012 [facility] [address] [id number] [address] [place] [address], [place] [address] 19 May, 2012 [facility] [address] [id number] [address] [place] [address], [place] [address] 13 May, 2012 [facility] [address] [id number] [address] [place] [address], [place] [address] 12 May, 2012 [facility] [address] [id number] [address] [place] [address], [place] [address] 12 May, 2012 [facility] [address] [id number] [address] [place] [address], [place] [address] 11 May, 2012 [facility] [address] [id number] [address] [place] [address], [place] [address] 11 May, 2012 [facility] [address] [id number] [address] [place] [address], [place] [address] May, [facility] [address] [id number] [address] [place] [address], [place] [address] May, 2012 [facility] [address] [id number] [address] [place] [address], [place] [address] 05 May, 2013 [facility] [address] [id number] [address] [place] [address], [place] [address] May, [facility] [address] [id number] [address] [place] [address], [place] [address] May, [facility] [address] [id number] [address] [place] [address], [place] [address] Apr, [facility] [address] [id number] [address] [place] [address], [place] [address] Apr, [facility] [address] [id number] [address] [place] [address], [place] [address] Apr, [facility] [address] [id number] [address] [place] [address], [place] [address] Apr, [facility] [address] [id number] [address] [place] [address], [place] [address] Apr, [facility] [address] [id number] [address] [place] [address], [place] [address] Apr, [facility] [address] [id number] [address] [place] [address], [place] [address] Apr, [facility] [address] [id number] [address] [place] [address], [place] [address] Apr, [facility] [address] [id number] [address] [place] [address], [place] [address] Apr, [facility] [address] [id number] [address] [place] [address], [place] [address] Mar, [facility] [address] [id number] [address] [place] [address], [place] [address] Mar, [facility] [address] [id number] [address] [place] [address], [place] [address] Mar, [facility] [address] [id number] [address] [place] [address], [place] [address] Mar, [facility] [address] [id number] [address] [place] [address], [place] [address] Mar, [facility] [address] [id number] [address] [place] [address], [place] [address] Mar, [facility] [address] [id number] [address] [place] [address], [place] [address] Mar, [facility] [address] [id number] [address] [place] [address], [place] [address] Mar, [facility] [address] [id number] [address] [place] [address], [place] [address] Mar, [facility] [address] [id number] [address] [place] [address], [place] [address] Mar, [facility] [address] [id number] [address] [place] [address], [place] [address] Mar, [facility] [address] [id number] [address] [place] [address], [place] [address] Feb, [facility] [address] [id number] [address] [place] [address], [place] [address] Feb, [facility] [address] [id number] [address] [place] [address], [place] [address] Feb, [facility] [address] [id number] [address] [place] [address], [place] [address] Feb, [facility] [address] [id number] [address] [place] [address], [place] [address] Feb, [facility] [address] [id number] [address] [place] [address], [place] [address] Feb, [facility] [address] [id number] [address] [place] [address], [place] [address] Feb, [facility] [address] [id number] [address] [place] [address], [place] [address] Feb, [facility] [address] [id number] [address] [place] [address], [place] [address] Feb, [facility] [address] [id number] [address] [place] [address], [place] [address] January, [facility] [address] [id number] [address] [place] [address], [place] [address] January, [facility] [address] [id number] [address] [place] [address], [place] [address] January, [facility] [address] [id number] [address] [place] [address], [place] [address] January, [facility] [address] [id number] [address] [place] [address], [place] [address] January, [facility] [address] [id number] [address] [place] [address], [place] [address] January, [facility] [address] [id number] [address] [place] [address], [place] [address] January, [facility] [address] [id number] [address] [place] [address], [place] [address] January, [facility] [address] [id number] [address] [place] [address], [place] [address] January, [facility] [address] [id number] [address] [place] [address], [place] [address] January, [facility] [address] [id number] [address] [place] [address], [place] [address] January, [facility] [address] [id number] [address] [place] [address], [place] [address] January, [facility] [address] [id number] [address] [place] [address], [place] [address] January, [facility] [address] [id number] [address] [place] [address], [place] [address] January, [facility] [address] [id number] [address] [place] [address], [place] [address] January, [facility] [address] [id number] [address] [place] [address], [place] [address] January, [facility] [address] [id number] [address] [place] [address], [place] [address] January, [facility] [address] [id number] [address] [place] [address], [place] [address] January, [facility] [address] [id number] [address] [place] [address], [place] [address] January, [facility] [address] [id number] [address] [place] [address], [place] [address] January, [facility] [address] [id number] [address] [place] [address], [place] [address] January, [facility] [address] [id number] [address] [place] [address], [place] [address] January, [facility] [address] [id number] [address] [place] [address], [place] [address] January, [facility] [address] [id number] [address] [place] [address], [place] [address] Dec, [facility] [address] [id number] [address] [place] [address], [place] [address] Dec, [facility] [address] [id number] [address] [place] [address], [place] [address] 17 Dec, 2012 [facility] [address] [id number] [address] [place] [address], [place] [address] 16 Dec, 2012 [facility] [address] [id number] [address] [place] [address], [place] [address] Dec, [facility] [address] [id number] [address] [place] [address], [place] [address] Nov, [facility] [address] [id number] [address] [place] [address], [place] [address] Oct, [facility] [address] [id number] [address] [place] [address], [place] [address] Oct, [facility] [address] [id number] [address] [place] [address], [place] [address] Oct, [facility] [address] [id number] [address] [place] [address], [place] [address] Oct, [facility] [address] [id number] [address] [place] [address], [place] [address] Oct, [facility] [address] [id number] [address] [place] [address], [place] [address] Sep, [facility] [address] [id number] [address] [place] [address], [place] [address] Sep, [facility] [address] [id number] [address] [place] [address], [place] [address] Sep, [facility] [address] [id number] [address] [place] [address], [place] [address] Aug, [facility] [address] [id number] [address] [place] [address], [place] [address] Aug, [facility] [address] [id number] [address] [place] [address], [place] [address] Aug, [facility] [address] [id number] [address] [place] [address], [place] [address] Aug, [facility] [address] [id number] [address] [place] [address], [place] [address] Jul, [facility] [address] [id number] [address] [place] [address], [place] [address] Jul, [facility] [address] [id number] [address] [place] [address], [place] [address] Jul, [facility] [address] [id number] [address] [place] [address], [place] [address] Jul, [facility] [address] [id number] [address] [place] [address], [place] [address] Jul, [facility] [address] [id number] [address] [place] [address], [place] [address] Jul, [facility] [address] [id number] [address] [place] [address], [place] [id number] Jun, [facility] [address] [id number] [address] [place] [address], [place] [address] Jun, [facility] [address] [id number] [address] [place] [address], [place] [address] Jun, [facility] [address] [id number] [address] [place] [address], [place] [address] Jun, [facility] [address] [id number] [address] [place] [address], [place] [address] Jun, [facility] [address] [id number] [address] [place] [address], [place] [address] Jun, [facility] [address] [id number] [address] [place] [address], [place] [address] Jun, [facility] [address] [id number] [address] [place] [address], [place] [address] Jun, [facility] [address] [id number] [address] [place] [address] Jun, [facility] [address] [id number] [address] [place] [address] 02 Jun, 2012 [facility] [address] [id number] [address] [place] [address], [place] [address] 17 May, 2012 [facility] [address] [id number] [address] [place] [address], [place] [address] 08 May, 2012 [facility] [address] [id number] [address] [place] [address], [place] [address] 06 Sep2011 [facility] [address] [id number] [address] [place] [address], [place] [address] Apr, [facility] [address] [id number] [address] [place] [address], [place] [address] Apr, [facility] [address] [id number] [address] [place] [address], [place] [address] Apr, [facility] [address] [id number] [address] [place] [address], [place] [address] Apr, [facility] [address] [id number] [address] [place] [address], [place] [address] Apr, [facility] [address] [id number] [address] [place] [address], [place] [address] Apr, [facility] [address] [id number] [address] [place] [address], [place] [address] Apr, [facility] [address] [id number] [address] [place] [address], [place] [address] Apr, [facility] [address] [id number] [address] [place] [address], [place] [address] Apr, [facility] [address] [id number] [address] [place] [address], [place] [address] Mar, [facility] [address] [id number] [address] [place] [address], [place] [address] Mar, [facility] [address] [id number] [address] [place] [address], [place] [address] Mar, [facility] [address] [id number] [address] [place] [address], [place] [address] Mar, [facility] [address] [id number] [address] [place] [address], [place] [address] Feb, [facility] [address] [id number] [address] [place] [address], [place] [address] Feb, [facility] [address] [id number] [address] [place] [address], [place] [address] Feb, [facility] [address] [id number] [address] [place] [address], [place] [address] January, [facility] [address] [id number] [address] [place] [address], [place] [address] January, [facility] [address] [id number] [address] [place] [address], [place] [address] January, [facility] [address] [id number] [address] [place] [address], [place] [address] January, [facility] [address] [id number] [address] [place] [address], [place] [address] January, [facility] [address] [id number] [address] [place] [address], [place] [address] Dec, [facility] [address] [id number] [address] [place] [address], [place] [address] Dec, [facility] [address] [id number] [address] [place] [address], [place] [address] Dec, [facility] [address] [id number] [address] [place] [address], [place] [address] Oct, [facility] [address] [id number] [address] [place] [address], [place] [address] Oct, [facility] [address] [id number] [address] [place] [address], [place] [address] Oct, [facility] [address] [id number] [address] [place] [address], [place] [address] Sep, [facility] [address] [id number] [address] [place] [address], [place] [address] Sep, [facility] [address] [id number] [address] [place] [address], [place] [address] Aug, [facility] [address] [id number] [address] [place] [address], [place] [address] Jul, [facility] [address] [id number] [address] [place] [address], [place] [address] 08 Jul, 2011 [facility] [address] [id number] [address] [place] [address], [place] [address] 12 Mar, 2011 [facility] [address] [id number] [address] [place] [address], [place] [address] 10 Aug, 2010 [facility] [address] [id number] [address] [place] [address], [place] [address] 10 Jul, 2010 [facility] [address] [id number] [address] [place] [address], [place] [address] Jul, [facility] [address] [id number] [address] [place] [address], [place] [address] Jul, [facility] [address] [id number] [address] [place] [address], [place] [address] Jul, [facility] [address] [id number] [address] [place] [address], [place] [address] 14 Jun, 2010 [facility] [address] [id number] [address] [place] [address], [place] [address] Jun, [facility] [address] [id number] [address] [place] [address], [place] [address] Apr, [facility] [address] [id number] [address] [place] [address], [place] [address] Aug, [facility] [address] [id number] [address] [place] [address], [place] [address] 17 Jul, 2009 [facility] [address] [id number] [address] [place] [address], [place] [address] 17 Jul, 2009 [facility] [address] [id number] [address] [place] [address], [place] [address] 13 Jul, 2009 [facility] [address] [id number] [address] [place] [address], [place] [address] 23 Jun, 2009 [facility] [address] [id number] [address] [place] [address] 10 May, 2009 [facility] [address] [facility] [id number] [address] [place] [address] Dec, [facility] [address] [facility] [id number] [address] [place] [address] Nov, [facility] [address] [facility] [id number] [address] [place] [address] Oct, [facility] [address] [facility] [id number] [address] [place] [address] Aug, [facility] [address] [facility] [id number] [address] [place] [address] Aug, [facility] [address] [facility] [id number] [address] [place] [address] Jun, IMMUNIZATIONS No Known Immunizations SOCIAL HISTORY [...] x 3 day s 04/2012 Hospitalization History [facility] [place]- Right wrist injury 03/29/2018
--- OUTSIDE RECORDS SUMMARY | 2020-04-09 00:03 | XMS REPORT ---
Author Author Kateryna Turner Doctor Organization [facility] Address Unknown Phone Unavailable Care Team Providers Care Lead Network Engineer Name Role Phone Migration, Doctor Unavailable Unavailable PROBLEMS Type Condition ICD9-CM Code [id number] Code Onset Dates Condition S tatus SNOMED Code Problem Irregular menses N92.6 Active 801 99304 Problem Migraine with aura and without status migrainosu s, not intractable G43.109 Active 4099021 Problem Uncontrolled type 2 diabetes mellitus with hyperglycemia E11.65 Active 196011968 Problem Morbid obesity due to excess calories E66.01 Active 611323438 Problem RLS (restless legs syndrome) G25.81 A ctive 72464434 Problem Morbid obesity E66.01 Active 09069 6002 ALLERGIES No Information ENCOUNTERS Encounter Location Date Diagnosis [facility] WALK IN [facility] [address] [facility] [id number] [address] [place] [id number] 15 Feb, 2020 Encounter for screening labo ratory testing for COVID-19 virus Z11.59 [facility] [address] [id number] [address] [place] [id number] 08 Feb, 2020 [facility] [address] [id number] [address] [place] [phone] January, [facility] [address] [id number] [address] [place] [id number] January, BMI 50.0-59.9, adult Z68.43 and Vomiting, unspecified R11.10 [facility] [address] [facility] [id number] [address] [place] [id number] January, [facility] [address] [id number] [address] [place] [id number] Dec, [facility] [address] [facility] [id number] [address] [place] [id number] Dec, [facility] [address] [id number] [address] [place] [id number] 23 Dec, 2019 Uncontrolled type 2 diabetes mellitus with hyperglycemia E11.65 [facility] [address] [id number] [address] [place] [id number] 07 Dec, 2019 [facility] [address] [id number] [address] [place] [id number] 06 Dec, 2019 [facility] [address] [id number] [address] [place] [id number] 03 Dec, 2019 [facility] [address] [id number] [address] [place] [phone] 30 Nov, 2019 [facility] [address] [id number] [address] [place] [id number] 28 Nov, 2019 [facility] [address] [id number] [address] [place] [phone] Nov, [facility] [address] [facility] [id number] [address] [place] [id number] Nov, RLS (restless legs syndrome) G25.81 [facility] [address] [id number] [address] [place] [id number] 15 Oct, 2019 [facility]ARE [address] [id number] [address] [place] [phone] 09 Oct, 2019 Influenza J11.1 [facility] [address] [id number] [address] [place] [id number] 16 Sep, 2019 [facility] [address] [id number] [address] [place] [id number] 14 Sep, 2019 [facility] [address] [id number] [address] [place] [id number] 14 Sep, 2019 [facility] [address] [id number] [address] [place] [id number] 13 Sep, 2019 [facility] [address] [id number] [address] [place] [id number] Sep, Pneumonia of left lower lobe due to infectious organism J18.9 and Migraine with aura and without status migrainosus, not intractable G43.109 [facility] [address] [id number] [address] [place] [id number] Sep, [facility] [address] [id number] [address] [place] [id number] Sep, [facility] [address] [id number] [address] [place] [phone] Sep, [facility] [address] [id number] [address] [place] [id number] Sep, [facility] [address] [id number] [address] [place] [id number] Sep, Pneumonia of left lower lobe due to infectious organism J18.9 and Migraine with aura and without status migrainosus, not intractable G43.109 [facility] [address] [id number] [address] [place] [id number] Aug, Irregular menses N92.6 ; Wel l woman exam Z01.419 ; Pelvic cramping R10.2 and Left breast lump N63.20 [place] [address] [id number] [address] [place] [id number] Aug, [place] [address] [id number] [address] [place] [id number] Aug, Well woman exam Z01.419 ; Le ft breast lump N63.20 ; Irregular menses N92.6 ; Encounter for immunization Z23 ; Pelvic cramping R10.2 and Screening for cervical cancer Z12.4 [facility] [address] [id number] [address] [place] [id number] Aug, [facility] [address] [id number] [address] [place] [phone] Aug, [facility] [address] [id number] [address] [place] [phone] Aug, [place] [id number] [facility] [id number] [address] [place] [phone] Jul, [facility] [address] [facility] [id number] [place] [phone] Jun, [facility] [address] [facility] [id number] [address] [place] [phone] Jun, [facility] [id number] [place] [phone] Jun, [facility] [address] [facility] [id number] [address] [place] [phone] Jun, BMI 50.0-59.9, adult Z68.43 [facility] [address] [id number] [address] [place] [phone] Jun, [facility] [address] [id number] [address] [place] [id number] May, Acute non-recurrent sinusiti s, unspecified location J01.90 ; Diarrhea, unspecified R19.7 ; Vomiting, unspecified R11.10 and Morbid obesity E66.01 [facility] [address] [place] [id number] [address] [place] [phone] Apr, [facility] [address] [id number] [address] [place] [phone] Apr, Anemia due to other cause, n ot classified D64.89 and D-dimer, elevated R79.89 [facility] [address] [id number] [address] [place] [phone] Apr, [facility] [address] [facility] [id number] [address] [place] [phone] Apr, [facility] [address] [id number] [address] [place] [phone] Mar, Anemia due to other cause, n ot classified D64.89 and D-dimer, elevated R79.89 [facility] [address] [id number] [address] [place] [id number] Mar, Leg edema, right R60.0 ; Hig h risk medication use Z79.899 and Morbid obesity E66.01 [place] [address] [id number] [address] [place] [id number] Mar, BMI 50.0-59.9, adult Z68.43 [place] [address] [id number] [place] [address] Mar, [place] [address] [id number] [address] [place] [id number] January, Uncontrolled type 2 diabetes mellitus with hyperglycemia E11.65 ; RLS (restless legs syndrome) G25.81 and Morbid obesity E66.01 [place] [address] [id number] [address] [place] [id number] Oct, Lipoma of right lower extrem ity D17.23 [place] [address] [id number] [address] [place] [id number] Oct, Lipoma of right lower extrem ity D17.23 [place] [address] [id number] [address] [place] [id number] Sep, [place] [address] [id number] [address] [place] [phone] Sep, [place] [address] [id number] [address] [place] [id number] Sep, [place] [address] [id number] [address] [place] [phone] Sep, [place] [address] [facility] [id number] [address] [place] [phone] Sep, [place] [address] [place] [id number] [address] [place] [address] Aug, Uncontrolled type 2 diabetes mellitus with hyperglycemia E11.65 ; Morbid obesity due to excess calories E66.01 ; Lipoma of torso D17.1 and BMI 50.0-59.9, adult Z68.43 [facility] [address] [id number] [address] [place] [phone] Jun, Encounter for immunization Z 23 [facility] [address] [id number] [address] [place] [phone] Jul, [facility] [address] [id number] [address] [place] [id number] Jun, Encounter for immunization Z 23 [facility] [address] [id number] [address] [place] [id number] 30 May, 2016 [facility] [address] [id number] [address] [place] [phone] Jun, Encounter for immunization Z 23 [facility] [address] [id number] [address] [place] [id number] 29 May, 2015 [facility] [address] [id number] [address] [place] [phone] May, [facility] [address] [id number] [address] [place] [phone] Apr, [facility] [address] [id number] [address] [place] [id number] Feb, [facility] [address] [id number] [address] [place] [id number] Feb, [facility] [address] [id number] [address] [place] [id number] Feb, [facility] [address] [id number] [address] [place] [id number] January, [facility] [address] [id number] [address] [place] [phone] January, [facility] [address] [id number] [address] [place] [phone] Dec, [facility] [address] [id number] [address] [place] [phone] Dec, [facility] [address] [id number] [address] [place] [address], [place] [address] Nov, [facility] [address] [id number] [address] [place] [address], [place] [address] Nov, [facility] [address] [id number] [address] [place] [address], [place] [address] Nov, [facility] [address] [id number] [address] [place] [address], [place] [address] Nov, [facility] [address] [id number] [address] [place] [address], [place] [address] Nov, [facility] [address] [id number] [address] [place] [address], [place] [address] Nov, [facility] [address] [id number] [address] [place] [address], [place] [address] Nov, [facility] [address] [id number] [address] [place] [address], [place] [address] Oct, [facility] [address] [id number] [address] [place] [address], [place] [address] Oct, [facility] [address] [id number] [address] [place] [address], [place] [address] Oct, [facility] [address] [id number] [address] [place] [address], [place] [address] Oct, [facility] [address] [id number] [address] [place] [address], [place] [address] Oct, [facility] [address] [id number] [address] [place] [address], [place] [address] Sep, [facility] [address] [id number] [address] [place] [address], [place] [address] Sep, [facility] [address] [id number] [address] [place] [address], [place] [address] Sep, [facility] [address] [id number] [address] [place] [address], [place] [address] Sep, [facility] [address] [id number] [address] [place] [address], [place] [address] Sep, [facility] [address] [id number] [address] [place] [address], [place] [address] Sep, [facility] [address] [id number] [address] [place] [address], [place] [address] Sep, [facility] [address] [id number] [address] [place] [address], [place] [address] Sep, [facility] [address] [id number] [address] [place] [address], [place] [address] Sep, [facility] [address] [id number] [address] [place] [address], [place] [address] Sep, [facility] [address] [id number] [address] [place] [address], [place] [address] Aug, [facility] [address] [id number] [address] [place] [address], [place] [address] Aug, [facility] [address] [id number] [address] [place] [address], [place] [address] Aug, [facility] [address] [id number] [address] [place] [address], [place] [address] Aug, [facility] [address] [id number] [address] [place] [address], [place] [address] Aug, [facility] [address] [id number] [address] [place] [address], [place] [address] Aug, [facility] [address] [id number] [address] [place] [address], [place] [address] Aug, [facility] [address] [id number] [address] [place] [address], [place] [address] Aug, [facility] [address] [id number] [address] [place] [address], [place] [address] Aug, [facility] [address] [id number] [address] [place] [address], [place] [address] Aug, [facility] [address] [id number] [address] [place] [address], [place] [address] Aug, [facility] [address] [id number] [address] [place] [address], [place] [address] Aug, [facility] [address] [id number] [address] [place] [address], [place] [address] Aug, [facility] [address] [id number] [address] [place] [address], [place] [address] Aug, [facility] [address] [id number] [address] [place] [address], [place] [address] Aug, [facility] [address] [id number] [address] [place] [address], [place] [address] Aug, [facility] [address] [id number] [address] [place] [address], [place] [address] Aug, [facility] [address] [id number] [address] [place] [address], [place] [address] Aug, [facility] [address] [id number] [address] [place] [address], [place] [address] Aug, [facility] [address] [id number] [address] [place] [address], [place] [address] Aug, [facility] [address] [id number] [address] [place] [address], [place] [address] Aug, [facility] [address] [id number] [address] [place] [address], [place] [address] Aug, [facility] [address] [id number] [address] [place] [address], [place] [address] 05 Aug, 2014 [facility] [address] [id number] [address] [place] [address], [place] [address] 05 Aug, 2014 [facility] [address] [id number] [address] [place] [address], [place] [address] 07 Jul, 2014 [facility] [address] [id number] [address] [place] [address], [place] [address] 07 Jul, 2014 [facility] [address] [id number] [address] [place] [address], [place] [address] 27 Jun, 2014 [facility] [address] [id number] [address] [place] [address], [place] [address] 27 Jun, 2014 [facility] [address] [id number] [address] [place] [id number] 17 Jun, 2014 [facility] [address] [id number] [address] [place] [address], [place] [address] 17 Jun, 2014 [facility] [address] [id number] [address] [place] [id number] 15 Jun, 2014 [facility] [address] [id number] [address] [place] [address], [place] [address] 15 Jun, 2014 [facility] [address] [id number] [address] [place] [id number] 14 Jun, 2014 [facility] [address] [id number] [address] [place] [address], [place] [address] 14 Jun, 2014 [facility] [address] [id number] [address] [place] [id number] 13 Jun, 2014 [facility] [address] [id number] [address] [place] [id number] 13 Jun, 2014 [facility] [address] [id number] [address] [place] [id number] 13 Jun, 2014 [facility] [address] [id number] [address] [place] [address], [place] [address] 13 Jun, 2014 [facility] [address] [id number] [address] [place] [id number] 06 Jun, 2014 [facility] [address] [id number] [address] [place] [address], [place] [address] 06 Jun, 2014 [facility] [address] [id number] [facility] [place] [address] May, 2013 [facility] [address] [id number] [facility] [place] [address] May, 2013 [facility] [address] [id number] [facility] [place] [address] May, 2013 [facility] [address] [id number] [address] [place] [address], [place] [address] May, 2013 [facility] [address] [id number] [address] [place] [address], [place] [address] May, 2013 [facility] [address] [id number] [address] [place] [address], [place] [address] May, 2013 [facility] [address] [id number] [address] [place] [address], [place] [address] May, 2013 [facility] [address] [id number] [address] [place] [address], [place] [address] May, 2013 [facility] [address] [id number] [address] [place] [address], [place] [address] Apr, [facility] [address] [id number] [address] [place] [address], [place] [address] Apr, [facility] [address] [id number] [address] [place] [address], [place] [address] Apr, [facility] [address] [id number] [address] [place] [address], [place] [address] Apr, [facility] [address] [id number] [address] [place] [address], [place] [address] Apr, [facility] [address] [id number] [address] [place] [address], [place] [address] Apr, [facility] [address] [id number] [address] [place] [address], [place] [address] Apr, [facility] [address] [id number] [address] [place] [address], [place] [address] Apr, [facility] [address] [id number] [address] [place] [address], [place] [address] Apr, [facility] [address] [id number] [address] [place] [address], [place] [address] Mar, [facility] [address] [id number] [address] [place] [address], [place] [address] Mar, [facility] [address] [id number] [address] [place] [address], [place] [address] Mar, [facility] [address] [id number] [address] [place] [address], [place] [address] Feb, [facility] [address] [id number] [address] [place] [address], [place] [address] Feb, [facility] [address] [id number] [address] [place] [address], [place] [address] Feb, [facility] [address] [id number] [address] [place] [address], [place] [address] Feb, [facility] [address] [id number] [address] [place] [address], [place] [address] Feb, [facility] [address] [id number] [address] [place] [address], [place] [address] Feb, [facility] [address] [id number] [address] [place] [address], [place] [address] Feb, [facility] [address] [id number] [address] [place] [address], [place] [address] Feb, [facility] [address] [id number] [address] [place] [address], [place] [address] Feb, [facility] [address] [id number] [address] [place] [address], [place] [address] Feb, [facility] [address] [id number] [address] [place] [address], [place] [address] 10 Feb, 2014 [facility] [address] [id number] [address] [place] [address], [place] [address] Feb, [facility] [address] [id number] [facility] [place] [address] Feb, [facility] [address] [id number] [address] [place] [address], [place] [address] Feb, [facility] [address] [id number] [address] [place] [address], [place] [address] Feb, [facility] [address] [id number] [address] [place] [address], [place] [address] Feb, [facility] [address] [id number] [address] [place] [address], [place] [address] January, [facility] [address] [id number] [address] [place] [address], [place] [address] January, [facility] [address] [id number] [address] [place] [address], [place] [address] January, [facility] [address] [id number] [address] [place] [address], [place] [address] January, [facility] [address] [id number] [address] [place] [address], [place] [address] January, [facility] [address] [id number] [address] [place] [address], [place] [address] January, [facility] [address] [id number] [address] [place] [address], [place] [address] January, [facility] [address] [id number] [address] [place] [address], [place] [address] January, [facility] [address] [id number] [address] [place] [address], [place] [address] January, [facility] [address] [id number] [address] [place] [address], [place] [address] January, [facility] [address] [id number] [address] [place] [address], [place] [address] January, [facility] [address] [id number] [facility] [place] [address] January, [facility] [address] [id number] [facility] [place] [address] January, [facility] [address] [id number] [facility] [place] [address] January, [facility] [address] [id number] [address] [place] [address], [place] [address] January, [facility] [address] [id number] [address] [place] [address], [place] [address] January, [facility] [address] [id number] [address] [place] [address], [place] [address] January, [facility] [address] [id number] [address] [place] [address], [place] [address] January, [facility] [address] [id number] [address] [place] [address], [place] [address] January, [facility] [address] [id number] [address] [place] [address], [place] [address] January, [facility] [address] [id number] [address] [place] [address], [place] [address] January, [facility] [address] [id number] [address] [place] [address], [place] [address] January, [facility] [address] [id number] [address] [place] [address], [place] [address] January, [facility] [address] [id number] [address] [place] [address], [place] [address] January, [facility] [address] [id number] [address] [place] [address], [place] [address] January, [facility] [address] [id number] [address] [place] [address], [place] [address] January, [facility] [address] [id number] [address] [place] [address], [place] [address] Dec, [facility] [address] [id number] [facility] [place] [address] Dec, [facility] [address] [id number] [facility] [place] [address] Dec, [facility] [address] [id number] [address] [place] [address], [place] [address] Dec, [facility] [address] [id number] [address] [place] [address], [place] [address] Dec, [facility] [address] [id number] [address] [place] [address], [place] [address] Dec, [facility] [address] [id number] [address] [place] [address], [place] [address] Dec, [facility] [address] [id number] [address] [place] [address], [place] [address] Dec, [facility] [address] [id number] [address] [place] [address], [place] [address] Dec, [facility] [address] [id number] [address] [place] [address], [place] [address] Dec, [facility] [address] [id number] [address] [place] [address], [place] [address] Dec, [facility] [address] [id number] [address] [place] [address], [place] [address] Dec, [facility] [address] [id number] [address] [place] [address], [place] [address] Dec, [facility] [address] [id number] [address] [place] [address], [place] [address] Dec, [facility] [address] [id number] [address] [place] [address], [place] [address] Dec, [facility] [address] [id number] [address] [place] [address], [place] [address] Dec, [facility] [address] [id number] [facility] [place] [address] 08 Dec, 2013 [facility] [address] [id number] [address] [place] [address], [place] [address] Dec, [facility] [address] [id number] [address] [place] [address], [place] [address] Dec, [facility] [address] [id number] [address] [place] [address], [place] [address] Dec, [facility] [address] [id number] [address] [place] [address], [place] [address] Dec, [facility] [address] [id number] [address] [place] [address], [place] [address] Dec, [facility] [address] [id number] [address] [place] [address], [place] [address] Nov, [facility] [address] [id number] [address] [place] [address], [place] [address] Nov, [facility] [address] [id number] [address] [place] [address], [place] [address] Nov, [facility] [address] [id number] [address] [place] [address], [place] [address] Nov, [facility] [address] [id number] [address] [place] [address], [place] [address] Nov, [facility] [address] [id number] [address] [place] [address], [place] [address] Nov, [facility] [address] [id number] [address] [place] [address], [place] [address] Nov, [facility] [address] [id number] [address] [place] [address], [place] [address] Nov, [facility] [address] [id number] [address] [place] [address], [place] [address] Nov, [facility] [address] [id number] [address] [place] [address], [place] [address] Nov, [facility] [address] [id number] [facility] [place] [address] 18 Nov, 2013 [facility] [address] [id number] [address] [place] [address], [place] [address] 18 Nov, 2013 [facility] [address] [id number] [address] [place] [address], [place] [address] 14 Nov, 2013 [facility] [address] [id number] [address] [place] [address], [place] [address] 14 Nov, 2013 [facility] [address] [id number] [address] [place] [address], [place] [address] Nov, [facility] [address] [id number] [address] [place] [address], [place] [address] Nov, [facility] [address] [id number] [address] [place] [address], [place] [address] Oct, [facility] [address] [id number] [address] [place] [address], [place] [address] Oct, [facility] [address] [id number] [address] [place] [address], [place] [address] Oct, [facility] [address] [id number] [address] [place] [address], [place] [address] Oct, [facility] [address] [id number] [address] [place] [address], [place] [address] Oct, [facility] [address] [id number] [address] [place] [address], [place] [address] Oct, [facility] [address] [id number] [address] [place] [address], [place] [address] Oct, [facility] [address] [id number] [address] [place] [address], [place] [address] Oct, [facility] [address] [id number] [address] [place] [address], [place] [address] Oct, [facility] [address] [id number] [facility] [place] [address] 17 Oct, 2013 [facility] [address] [id number] [address] [place] [address], [place] [address] 14 Oct, 2013 [facility] [address] [id number] [address] [place] [address], [place] [address] 14 Oct, 2013 [facility] [address] [id number] [address] [place] [address], [place] [address] 04 Oct, 2013 [facility] [address] [id number] [address] [place] [address], [place] [address] 04 Oct, 2013 [facility] [address] [id number] [address] [place] [address], [place] [address] 03 Oct, 2013 [facility] [address] [id number] [address] [place] [address], [place] [address] Sep, [facility] [address] [id number] [address] [place] [address], [place] [address] Sep, [facility] [address] [id number] [address] [place] [address], [place] [address] Sep, [facility] [address] [id number] [address] [place] [address], [place] [address] Sep, [facility] [address] [id number] [address] [place] [address], [place] [address] Sep, [facility] [address] [id number] [address] [place] [address], [place] [address] Sep, [facility] [address] [id number] [address] [place] [address], [place] [address] Sep, [facility] [address] [id number] [address] [place] [address], [place] [address] Sep, [facility] [address] [id number] [address] [place] [address], [place] [address] Sep, [facility] [address] [id number] [address] [place] [address], [place] [address] Sep, [facility] [address] [id number] [address] [place] [address], [place] [address] Sep, [facility] [address] [id number] [address] [place] [address], [place] [address] Sep, [facility] [address] [id number] [address] [place] [address], [place] [address] Sep, [facility] [address] [id number] [address] [place] [address], [place] [address] Aug, [facility] [address] [id number] [address] [place] [address], [place] [address] Aug, [facility] [address] [id number] [address] [place] [address], [place] [address] Aug, [facility] [address] [id number] [address] [place] [address], [place] [address] Aug, [facility] [address] [id number] [address] [place] [address], [place] [address] Aug, [facility] [address] [id number] [address] [place] [address], [place] [address] 17 Aug, 2013 [facility] [address] [id number] [address] [place] [address], [place] [address] 16 Aug, 2013 [facility] [address] [id number] [address] [place] [address], [place] [address] 16 Aug, 2013 [facility] [address] [id number] [address] [place] [address], [place] [address] 12 Aug, 2013 [facility] [address] [id number] [address] [place] [address], [place] [address] Aug, [facility] [address] [id number] [address] [place] [address], [place] [address] 10 Aug, 2013 [facility] [address] [id number] [address] [place] [address], [place] [address] 10 Aug, 2013 [facility] [address] [id number] [address] [place] [address], [place] [address] 02 Aug, 2013 [facility] [address] [id number] [address] [place] [address], [place] [address] 02 Aug, 2013 [facility] [address] [id number] [address] [place] [address], [place] [address] 19 Jul, 2013 [facility] [address] [id number] [address] [place] [address], [place] [address] 19 Jul, 2013 [facility] [address] [id number] [address] [place] [address], [place] [address] 18 Jul, 2013 [facility] [address] [id number] [address] [place] [address], [place] [address] 18 Jul, 2013 [facility] [address] [id number] [address] [place] [address], [place] [address] 14 Jul, 2013 [facility] [address] [id number] [address] [place] [address], [place] [address] 14 Jul, 2013 [facility] [address] [id number] [address] [place] [address], [place] [address] 14 Jul, 2013 [facility] [address] [id number] [address] [place] [address], [place] [address] 14 Jul, 2013 [facility] [address] [id number] [address] [place] [address], [place] [address] 07 Jul, 2013 [facility] [address] [id number] [address] [place] [address], [place] [address] 07 Jul, 2013 [facility] [address] [id number] [address] [place] [address], [place] [address] 06 Jul, 2013 [facility] [address] [id number] [address] [place] [address], [place] [address] 06 Jul, 2013 [facility] [address] [id number] [address] [place] [address], [place] [address] 05 Jul, 2013 [facility] [address] [id number] [address] [place] [address] 05 Jul, 2013 [facility] [address] [id number] [address] [place] [address], [place] [address] 23 Jun, 2013 [facility] [address] [id number] [address] [place] [address], [place] [address] 23 Jun, 2013 [facility] [address] [id number] [address] [place] [address], [place] [address] 15 Jun, 2013 [facility] [address] [id number] [address] [place] [address], [place] [address] 15 Jun, 2013 [facility] [address] [id number] [address] [place] [address], [place] [address] 14 Jun, 2013 [facility] [address] [id number] [address] [place] [address], [place] [address] 24 May, 2012 [facility] [address] [id number] [address] [place] [address], [place] [address] 20 May, 2012 [facility] [address] [id number] [address] [place] [address], [place] [address] 20 May, 2012 [facility] [address] [id number] [address] [place] [address], [place] [address] 20 May, 2012 [facility] [address] [id number] [address] [place] [address], [place] [address] 19 May, 2012 [facility] [address] [id number] [address] [place] [address], [place] [address] 13 May, 2012 [facility] [address] [id number] [address] [place] [address], [place] [address] 12 May, 2012 [facility] [address] [id number] [address] [place] [address], [place] [address] 12 May, 2012 [facility] [address] [id number] [address] [place] [address], [place] [address] 11 May, 2012 [facility] [address] [id number] [address] [place] [address], [place] [address] 11 May, 2012 [facility] [address] [id number] [address] [place] [address], [place] [address] May, [facility] [address] [id number] [address] [place] [address], [place] [address] May, 2012 [facility] [address] [id number] [address] [place] [address], [place] [address] 05 May, 2013 [facility] [address] [id number] [address] [place] [address], [place] [address] May, [facility] [address] [id number] [address] [place] [address], [place] [address] May, [facility] [address] [id number] [address] [place] [address], [place] [address] Apr, [facility] [address] [id number] [address] [place] [address], [place] [address] Apr, [facility] [address] [id number] [address] [place] [address], [place] [address] Apr, [facility] [address] [id number] [address] [place] [address], [place] [address] Apr, [facility] [address] [id number] [address] [place] [address], [place] [address] Apr, [facility] [address] [id number] [address] [place] [address], [place] [address] Apr, [facility] [address] [id number] [address] [place] [address], [place] [address] Apr, [facility] [address] [id number] [address] [place] [address], [place] [address] Apr, [facility] [address] [id number] [address] [place] [address], [place] [address] Apr, [facility] [address] [id number] [address] [place] [address], [place] [address] Mar, [facility] [address] [id number] [address] [place] [address], [place] [address] Mar, [facility] [address] [id number] [address] [place] [address], [place] [address] Mar, [facility] [address] [id number] [address] [place] [address], [place] [address] Mar, [facility] [address] [id number] [address] [place] [address], [place] [address] Mar, [facility] [address] [id number] [address] [place] [address], [place] [address] Mar, [facility] [address] [id number] [address] [place] [address], [place] [address] Mar, [facility] [address] [id number] [address] [place] [address], [place] [address] Mar, [facility] [address] [id number] [address] [place] [address], [place] [address] Mar, [facility] [address] [id number] [address] [place] [address], [place] [address] Mar, [facility] [address] [id number] [address] [place] [address], [place] [address] Mar, [facility] [address] [id number] [address] [place] [address], [place] [address] Feb, [facility] [address] [id number] [address] [place] [address], [place] [address] Feb, [facility] [address] [id number] [address] [place] [address], [place] [address] Feb, [facility] [address] [id number] [address] [place] [address], [place] [address] Feb, [facility] [address] [id number] [address] [place] [address], [place] [address] Feb, [facility] [address] [id number] [address] [place] [address], [place] [address] Feb, [facility] [address] [id number] [address] [place] [address], [place] [address] Feb, [facility] [address] [id number] [address] [place] [address], [place] [address] Feb, [facility] [address] [id number] [address] [place] [address], [place] [address] Feb, [facility] [address] [id number] [address] [place] [address], [place] [address] January, [facility] [address] [id number] [address] [place] [address], [place] [address] January, [facility] [address] [id number] [address] [place] [address], [place] [address] January, [facility] [address] [id number] [address] [place] [address], [place] [address] January, [facility] [address] [id number] [address] [place] [address], [place] [address] January, [facility] [address] [id number] [address] [place] [address], [place] [address] January, [facility] [address] [id number] [address] [place] [address], [place] [address] January, [facility] [address] [id number] [address] [place] [address], [place] [address] January, [facility] [address] [id number] [address] [place] [address], [place] [address] January, [facility] [address] [id number] [address] [place] [address], [place] [address] January, [facility] [address] [id number] [address] [place] [address], [place] [address] January, [facility] [address] [id number] [address] [place] [address], [place] [address] January, [facility] [address] [id number] [address] [place] [address], [place] [address] January, [facility] [address] [id number] [address] [place] [address], [place] [address] January, [facility] [address] [id number] [address] [place] [address], [place] [address] January, [facility] [address] [id number] [address] [place] [address], [place] [address] January, [facility] [address] [id number] [address] [place] [address], [place] [address] January, [facility] [address] [id number] [address] [place] [address], [place] [address] January, [facility] [address] [id number] [address] [place] [address], [place] [address] January, [facility] [address] [id number] [address] [place] [address], [place] [address] January, [facility] [address] [id number] [address] [place] [address], [place] [address] January, [facility] [address] [id number] [address] [place] [address], [place] [address] January, [facility] [address] [id number] [address] [place] [address], [place] [address] January, [facility] [address] [id number] [address] [place] [address], [place] [address] Dec, [facility] [address] [id number] [address] [place] [address], [place] [address] Dec, [facility] [address] [id number] [address] [place] [address], [place] [address] 17 Dec, 2012 [facility] [address] [id number] [address] [place] [address], [place] [address] 16 Dec, 2012 [facility] [address] [id number] [address] [place] [address], [place] [address] Dec, [facility] [address] [id number] [address] [place] [address], [place] [address] Nov, [facility] [address] [id number] [address] [place] [address], [place] [address] Oct, [facility] [address] [id number] [address] [place] [address], [place] [address] Oct, [facility] [address] [id number] [address] [place] [address], [place] [address] Oct, [facility] [address] [id number] [address] [place] [address], [place] [address] Oct, [facility] [address] [id number] [address] [place] [address], [place] [address] Oct, [facility] [address] [id number] [address] [place] [address], [place] [address] Sep, [facility] [address] [id number] [address] [place] [address], [place] [address] Sep, [facility] [address] [id number] [address] [place] [address], [place] [address] Sep, [facility] [address] [id number] [address] [place] [address], [place] [address] Aug, [facility] [address] [id number] [address] [place] [address], [place] [address] Aug, [facility] [address] [id number] [address] [place] [address], [place] [address] Aug, [facility] [address] [id number] [address] [place] [address], [place] [address] Aug, [facility] [address] [id number] [address] [place] [address], [place] [address] Jul, [facility] [address] [id number] [address] [place] [address], [place] [address] Jul, [facility] [address] [id number] [address] [place] [address], [place] [address] Jul, [facility] [address] [id number] [address] [place] [address], [place] [address] Jul, [facility] [address] [id number] [address] [place] [address], [place] [address] Jul, [facility] [address] [id number] [address] [place] [address], [place] [address] Jul, [facility] [address] [id number] [address] [place] [place] [address], [place] [address] Jun, [facility] [address] [id number] [address] [place] [address], [place] [address] Jun, [facility] [address] [id number] [address] [place] [address], [place] [address] Jun, [facility] [address] [id number] [address] [place] [address], [place] [address] Jun, [facility] [address] [id number] [address] [place] [address], [place] [address] Jun, [facility] [address] [id number] [address] [place] [address], [place] [address] Jun, [facility] [address] [id number] [address] [place] [address], [place] [address] Jun, [facility] [address] [id number] [address] [place] [address], [place] [address] Jun, [facility] [address] [id number] [address] [place] [id number] Jun, [facility] [address] [id number] [address] [place] [id number] 02 Jun, 2012 [facility] [address] [id number] [address] [place] [address], [place] [address] 17 May, 2012 [facility] [address] [id number] [address] [place] [address], [place] [address] 08 May, 2012 [facility] [address] [id number] [address] [place] [address], [place] [address] 06 Sep2011 [facility] [address] [id number] [address] [place] [address], [place] [address] Apr, [facility] [address] [id number] [address] [place] [address], [place] [address] Apr, [facility] [address] [id number] [address] [place] [address], [place] [address] Apr, [facility] [address] [id number] [address] [place] [address], [place] [address] Apr, [facility] [address] [id number] [address] [place] [address], [place] [address] Apr, [facility] [address] [id number] [address] [place] [address], [place] [address] Apr, [facility] [address] [id number] [address] [place] [address], [place] [address] Apr, [facility] [address] [id number] [address] [place] [address], [place] [address] Apr, [facility] [address] [id number] [address] [place] [address], [place] [address] Apr, [facility] [address] [id number] [address] [place] [address], [place] [address] Mar, [facility] [address] [id number] [address] [place] [address], [place] [address] Mar, [facility] [address] [id number] [address] [place] [address], [place] [address] Mar, [facility] [address] [id number] [address] [place] [address], [place] [address] Mar, [facility] [address] [id number] [address] [place] [address], [place] [address] Feb, [facility] [address] [id number] [address] [place] [address], [place] [address] Feb, [facility] [address] [id number] [address] [place] [address], [place] [address] Feb, [facility] [address] [id number] [address] [place] [address], [place] [address] January, [facility] [address] [id number] [address] [place] [address], [place] [address] January, [facility] [address] [id number] [address] [place] [address], [place] [address] January, [facility] [address] [id number] [address] [place] [address], [place] [address] January, [facility] [address] [id number] [address] [place] [address], [place] [address] January, [facility] [address] [id number] [address] [place] [address], [place] [address] Dec, [facility] [address] [id number] [address] [place] [address], [place] [address] Dec, [facility] [address] [id number] [address] [place] [address], [place] [address] Dec, [facility] [address] [id number] [address] [place] [address], [place] [address] Oct, [facility] [address] [id number] [address] [place] [address], [place] [address] Oct, [facility] [address] [id number] [address] [place] [address], [place] [address] Oct, [facility] [address] [id number] [address] [place] [address], [place] [address] Sep, [facility] [address] [id number] [address] [place] [address], [place] [address] Sep, [facility] [address] [id number] [address] [place] [address], [place] [address] Aug, [facility] [address] [id number] [address] [place] [address], [place] [address] Jul, [facility] [address] [id number] [address] [place] [address], [place] [address] 08 Jul, 2011 [facility] [address] [id number] [address] [place] [address], [place] [address] 12 Mar, 2011 [facility] [address] [id number] [address] [place] [address], [place] [address] 10 Aug, 2010 [facility] [address] [id number] [address] [place] [address], [place] [address] 10 Jul, 2010 [facility] [address] [id number] [address] [place] [address], [place] [address] Jul, [facility] [address] [id number] [address] [place] [address], [place] [address] Jul, [facility] [address] [id number] [address] [place] [address], [place] [address] Jul, [facility] [address] [id number] [address] [place] [address], [place] [address] 14 Jun, 2010 [facility] [address] [id number] [address] [place] [address], [place] [address] Jun, [facility] [address] [id number] [address] [place] [address], [place] [address] Apr, [facility] [address] [id number] [address] [place] [address], [place] [address] Aug, [facility] [address] [id number] [address] [place] [address], [place] [address] 17 Jul, 2009 [facility] [address] [id number] [address] [place] [address], [place] [address] 17 Jul, 2009 [facility] [address] [id number] [address] [place] [address], [place] [address] 13 Jul, 2009 [facility] [address] [id number] [address] [place] [address], [place] [address] 23 Jun, 2009 [facility] [address] [id number] [address] [place] [id number] 10 May, 2009 [facility] [address] [facility] [id number] [address] [place] [id number] Dec, [facility] [address] [facility] [id number] [address] [place] [id number] Nov, [facility] [address] [facility] [id number] [address] [place] [id number] Oct, [facility] [address] [facility] [id number] [address] [place] [id number] Aug, [facility] [address] [facility] [id number] [address] [place] [id number] Aug, [facility] [address] [facility] [id number] [address] [place] [id number] Jun, IMMUNIZATIONS No Known Immunizations SOCIAL HISTORY [...] x 3 day s 04/2012 Hospitalization History [facility] [place]- Right wrist injury 03/29/2018
--- OUTSIDE RECORDS SUMMARY | 2020-04-09 00:04 | XMS REPORT ---
Author Author Kateryna Turner Doctor Organization [facility] Address Unknown Phone Unavailable Care Team Providers Care Rolling Mill Plugger Name Role Phone Migration, Doctor Unavailable Unavailable PROBLEMS Type Condition ICD9-CM Code EJC02-EP Code Onset Dates Condition S tatus SNOMED Code Problem Irregular menses N92.6 Active 801 13329 Problem Migraine with aura and without status migrainosu s, not intractable G43.109 Active 2948327 Problem Uncontrolled type 2 diabetes mellitus with hyperglycemia E11.65 Active 600512810 Problem Morbid obesity due to excess calories E66.01 Active 779747255 Problem RLS (restless legs syndrome) G25.81 A ctive 35231533 Problem Morbid obesity E66.01 Active 00587 6002 ALLERGIES No Information ENCOUNTERS Encounter Location Date Diagnosis [facility] [address] [facility] [id number] [address] [place] [id number] 15 Feb, 2020 Encounter for screening labo ratory testing for COVID-19 virus Z11.59 [facility] [address] [place] [id number] [address] [place] [id number] 08 Feb, 2020 [facility] [address] [id number] [address] [place] [id number] January, [facility] [address] [place] [id number] [address] [place] [id number] January, BMI 50.0-59.9, adult Z68.43 and Vomiting, unspecified R11.10 [facility] [address] [facility] [id number] [address] [place] [id number] January, [facility] [address] [place] [place] [id number] [address] [place] [id number] Dec, [facility] [address] [facility] [id number] [address] [place] [id number] Dec, [facility] [address] [place] [place] [id number] [address] [place] [id number] 23 Dec, 2019 Uncontrolled type 2 diabetes mellitus with hyperglycemia E11.65 [facility] [address] [id number] [address] [place] [id number] 07 Dec, 2019 [facility] [address] [id number] [address] [place] [id number] 06 Dec, 2019 [facility] [address] [id number] [address] [place] [id number] 03 Dec, 2019 [facility] [address] [id number] [address] [place] [id number] 30 Nov, 2019 [facility] [address] [id number] [address] [place] [id number] 28 Nov, 2019 [facility] [address] [id number] [address] [place] [id number] Nov, [facility] [address] [facility] [id number] [address] [place] [id number] Nov, RLS (restless legs syndrome) G25.81 [facility] [address] [id number] [address] [place] [id number] 15 Oct, 2019 [facility] [address] [id number] [address] [place] [id number] 09 Oct, 2019 Influenza J11.1 [facility] [address] [id number] [address] [place] [id number] 16 Sep, 2019 [facility] [address] [id number] [address] [place] [id number] 14 Sep, 2019 [facility] [address] [id number] [address] [place] [id number] 14 Sep, 2019 [facility] [address] [id number] [address] [place] [id number] 13 Sep, 2019 [facility] [address] [id number] [address] [place] [id number] Sep, Pneumonia of left lower lobe due to infectious organism J18.9 and Migraine with aura and without status migrainosus, not intractable G43.109 [facility] [address] [id number] [address] [place] [id number] Sep, [facility] [address] [id number] [address] [place] [id number] Sep, [facility] [address] [id number] [address] [place] [id number] Sep, [facility] [address] [id number] [address] [place] [id number] Sep, [facility] [address] [id number] [address] [place] [id number] Sep, Pneumonia of left lower lobe due to infectious organism J18.9 and Migraine with aura and without status migrainosus, not intractable G43.109 [facility] [address] [id number] [address] [place] [id number] Aug, Irregular menses N92.6 ; Wel l woman exam Z01.419 ; Pelvic cramping R10.2 and Left breast lump N63.20 [place] [address] [id number] [address] [place] [id number] Aug, [place] [address] [id number] [address] [place] [id number] Aug, Well woman exam Z01.419 ; Le ft breast lump N63.20 ; Irregular menses N92.6 ; Encounter for immunization Z23 ; Pelvic cramping R10.2 and Screening for cervical cancer Z12.4 [facility] [address] [id number] [address] [place] [id number] Aug, [facility] [address] [id number] [address] [place] [id number] Aug, [facility] [address] [id number] [address] [place] [phone] Aug, [place] [address] [facility] [id number] [address] [place] [id number] Jul, [facility] [address] [facility] [id number] [place] [phone] Jun, [facility] [address] [facility] [id number] [address] [place] [id number] Jun, [facility] [address] [place] [id number] [place] [phone] Jun, [facility] [address] [facility] [id number] [address] [place] [id number] Jun, BMI 50.0-59.9, adult Z68.43 [facility] [address] [place] [id number] [address] [place] [id number] Jun, [facility] [address] [id number] [address] [place] [id number] May, Acute non-recurrent sinusiti s, unspecified location J01.90 ; Diarrhea, unspecified R19.7 ; Vomiting, unspecified R11.10 and Morbid obesity E66.01 [facility] [address] [place] [id number] [address] [place] [id number] Apr, [facility] [address] [place] [place] [id number] [address] [place] [id number] Apr, Anemia due to other cause, n ot classified D64.89 and D-dimer, elevated R79.89 [facility] [address] [place] [id number] [address] [place] [id number] Apr, [facility] [address] [facility] [id number] [address] [place] [id number] Apr, [facility] [address] [place] [place] [id number] [address] [place] [id number] Mar, Anemia due to other cause, n ot classified D64.89 and D-dimer, elevated R79.89 [facility] [address] [place] [id number] [address] [place] [id number] Mar, Leg edema, right R60.0 ; Hig h risk medication use Z79.899 and Morbid obesity E66.01 [place] [address] [place] [place] [id number] [address] [place] [id number] Mar, BMI 50.0-59.9, adult Z68.43 [place] [address] [place] [id number] [place] [phone] Mar, [place] [address] [place] [id number] [address] [place] [id number] January, Uncontrolled type 2 diabetes mellitus with hyperglycemia E11.65 ; RLS (restless legs syndrome) G25.81 and Morbid obesity E66.01 [place] [address] [place] [id number] [address] [place] [id number] Oct, Lipoma of right lower extrem ity D17.23 [place] [address] [place] [id number] [address] [place] [id number] Oct, Lipoma of right lower extrem ity D17.23 [place] [address] [place] [id number] [address] [place] [id number] Sep, [place] [address] [place] [id number] [address] [place] [id number] Sep, [place] [address] [place] [id number] [address] [place] [id number] Sep, [place] [address] [place] [id number] [address] [place] [phone] Sep, [place] [address] [facility] [id number] [address] [place] [id number] Sep, [place] [address] [place] [id number] [address] [place] [id number] Aug, Uncontrolled type 2 diabetes mellitus with hyperglycemia E11.65 ; Morbid obesity due to excess calories E66.01 ; Lipoma of torso D17.1 and BMI 50.0-59.9, adult Z68.43 [facility] [address] [id number] [address] [place] [id number] Jun, Encounter for immunization Z 23 [facility] [place] [address] [id number] [address] [place] [id number] Jul, [facility] [place] [address] [id number] [address] [place] [id number] Jun, Encounter for immunization Z 23 [facility] [place] [address] [id number] [address] [place] [id number] 30 May, 2016 [facility] [place] [address] [id number] [address] [place] [phone] Jun, Encounter for immunization Z 23 [facility] [place] [address] [id number] [address] [place] [id number] 29 May, 2015 [facility] [address] [id number] [address] [place] [id number] May, [facility] [address] [id number] [address] [place] [id number] Apr, [facility] [place] [address] [id number] [address] [place] [id number] Feb, [facility] [address] [id number] [address] [place] [id number] Feb, [facility] [address] [id number] [address] [place] [id number] Feb, [facility] [address] [id number] [address] [place] [id number] January, [facility] [place] [address] [id number] [address] [place] [id number] January, [facility] [address] [id number] [address] [place] [id number] Dec, [facility] [address] [id number] [address] [place] [id number] Dec, [facility] [address] [id number] [address] [place] [address], [place] [address] Nov, [facility] [address] [id number] [address] [place] [address], [place] [address] Nov, [facility] [address] [id number] [address] [place] [address], [place] [address] Nov, [facility] [address] [id number] [address] [place] [address], [place] [address] Nov, [facility] [address] [id number] [address] [place] [address], [place] [address] Nov, [facility] [address] [id number] [address] [place] [address], [place] [address] Nov, [facility] [address] [id number] [address] [place] [address], [place] [address] Nov, [facility] [address] [id number] [address] [place] [address], [place] [address] Oct, [facility] [address] [id number] [address] [place] [address], [place] [address] Oct, [facility] [address] [id number] [address] [place] [address], [place] [address] Oct, [facility] [address] [id number] [address] [place] [address], [place] [address] Oct, [facility] [address] [id number] [address] [place] [address], [place] [address] Oct, [facility] [address] [id number] [address] [place] [address], [place] [address] Sep, [facility] [address] [id number] [address] [place] [address], [place] [address] Sep, [facility] [address] [id number] [address] [place] [address], [place] [address] Sep, [facility] [address] [id number] [address] [place] [address], [place] [address] Sep, [facility] [address] [id number] [address] [place] [address], [place] [address] Sep, [facility] [address] [id number] [address] [place] [address], [place] [address] Sep, [facility] [address] [id number] [address] [place] [address], [place] [address] Sep, [facility] [address] [id number] [address] [place] [address], [place] [address] Sep, [facility] [address] [id number] [address] [place] [address], [place] [address] Sep, [facility] [address] [id number] [address] [place] [address], [place] [address] Sep, [facility] [address] [id number] [address] [place] [address], [place] [address] Aug, [facility] [address] [id number] [address] [place] [address], [place] [address] Aug, [facility] [address] [id number] [address] [place] [address], [place] [address] Aug, [facility] [address] [id number] [address] [place] [address], [place] [address] Aug, [facility] [address] [id number] [address] [place] [address], [place] [address] Aug, [facility] [address] [id number] [address] [place] [address], [place] [address] Aug, [facility] [address] [id number] [address] [place] [address], [place] [address] Aug, [facility] [address] [id number] [address] [place] [address], [place] [address] Aug, [facility] [address] [id number] [address] [place] [address], [place] [address] Aug, [facility] [address] [id number] [address] [place] [address], [place] [address] Aug, [facility] [address] [id number] [address] [place] [address], [place] [address] Aug, [facility] [address] [id number] [address] [place] [address], [place] [address] Aug, [facility] [address] [id number] [address] [place] [address], [place] [address] Aug, [facility] [address] [id number] [address] [place] [address], [place] [address] Aug, [facility] [address] [id number] [address] [place] [address], [place] [address] Aug, [facility] [address] [id number] [address] [place] [address], [place] [address] Aug, [facility] [address] [id number] [address] [place] [address], [place] [address] Aug, [facility] [address] [id number] [address] [place] [address], [place] [address] Aug, [facility] [address] [id number] [address] [place] [address], [place] [address] Aug, [facility] [address] [id number] [address] [place] [address], [place] [address] Aug, [facility] [address] [id number] [address] [place] [address], [place] [address] Aug, [facility] [address] [id number] [address] [place] [address], [place] [address] Aug, [facility] [address] [id number] [address] [place] [address], [place] [address] 05 Aug, 2014 [facility] [address] [id number] [address] [place] [address], [place] [address] 05 Aug, 2014 [facility] [address] [id number] [address] [place] [address], [place] [address] 07 Jul, 2014 [facility] [address] [id number] [address] [place] [address], [place] [address] 07 Jul, 2014 [facility] [address] [id number] [address] [place] [address], [place] [address] 27 Jun, 2014 [facility] [address] [id number] [address] [place] [address], [place] [address] 27 Jun, 2014 [facility] [address] [id number] [address] [place] [id number] 17 Jun, 2014 [facility] [address] [id number] [address] [place] [address], [place] [address] 17 Jun, 2014 [facility] [address] [id number] [address] [place] [id number] 15 Jun, 2014 [facility] [address] [id number] [address] [place] [address], [place] [address] 15 Jun, 2014 [facility] [address] [id number] [address] [place] [id number] 14 Jun, 2014 [facility] [address] [id number] [address] [place] [address], [place] [address] 14 Jun, 2014 [facility] [address] [id number] [address] [place] [id number] 13 Jun, 2014 [facility] [address] [id number] [address] [place] [id number] 13 Jun, 2014 [facility] [address] [id number] [address] [place] [id number] 13 Jun, 2014 [facility] [address] [id number] [address] [place] [address], [place] [address] 13 Jun, 2014 [facility] [address] [id number] [address] [place] [id number] 06 Jun, 2014 [facility] [address] [id number] [address] [place] [address], [place] [address] 06 Jun, 2014 [facility] [address] [id number] [facility] [address] May, 2013 [facility] [address] [id number] [facility] [address] May, 2013 [facility] [address] [id number] [facility] [address] May, 2013 [facility] [address] [id number] [address] [place] [address], [place] [address] May, 2013 [facility] [address] [id number] [address] [place] [address], [place] [address] May, 2013 [facility] [address] [id number] [address] [place] [address], [place] [address] May, 2013 [facility] [address] [id number] [address] [place] [address], [place] [address] May, 2013 [facility] [address] [id number] [address] [place] [address], [place] [address] May, 2013 [facility] [address] [id number] [address] [place] [address], [place] [address] Apr, [facility] [address] [id number] [address] [place] [address], [place] [address] Apr, [facility] [address] [id number] [address] [place] [address], [place] [address] Apr, [facility] [address] [id number] [address] [place] [address], [place] [address] Apr, [facility] [address] [id number] [address] [place] [address], [place] [address] Apr, [facility] [address] [id number] [address] [place] [address], [place] [address] Apr, [facility] [address] [id number] [address] [place] [address], [place] [address] Apr, [facility] [address] [id number] [address] [place] [address], [place] [address] Apr, [facility] [address] [id number] [address] [place] [address], [place] [address] Apr, [facility] [address] [id number] [address] [place] [address], [place] [address] Mar, [facility] [address] [id number] [address] [place] [address], [place] [address] Mar, [facility] [address] [id number] [address] [place] [address], [place] [address] Mar, [facility] [address] [id number] [address] [place] [address], [place] [address] Feb, [facility] [address] [id number] [address] [place] [address], [place] [address] Feb, [facility] [address] [id number] [address] [place] [address], [place] [address] Feb, [facility] [address] [id number] [address] [place] [address], [place] [address] Feb, [facility] [address] [id number] [address] [place] [address], [place] [address] Feb, [facility] [address] [id number] [address] [place] [address], [place] [address] Feb, [facility] [address] [id number] [address] [place] [address], [place] [address] Feb, [facility] [address] [id number] [address] [place] [address], [place] [address] Feb, [facility] [address] [id number] [address] [place] [address], [place] [address] Feb, [facility] [address] [id number] [address] [place] [address], [place] [address] Feb, [facility] [address] [id number] [address] [place] [address], [place] [address] 10 Feb, 2014 [facility] [address] [id number] [address] [place] [address], [place] [address] Feb, [facility] [address] [id number] [address] [address] Feb, [facility] [address] [id number] [address] [place] [address], [place] [address] Feb, [facility] [address] [id number] [address] [place] [address], [place] [address] Feb, [facility] [address] [id number] [address] [place] [address], [place] [address] Feb, [facility] [address] [id number] [address] [place] [address], [place] [address] January, [facility] [address] [id number] [address] [place] [address], [place] [address] January, [facility] [address] [id number] [address] [place] [address], [place] [address] January, [facility] [address] [id number] [address] [place] [address], [place] [address] January, [facility] [address] [id number] [address] [place] [address], [place] [address] January, [facility] [address] [id number] [address] [place] [address], [place] [address] January, [facility] [address] [id number] [address] [place] [address], [place] [address] January, [facility] [address] [id number] [address] [place] [address], [place] [address] January, [facility] [address] [id number] [address] [place] [address], [place] [address] January, [facility] [address] [id number] [address] [place] [address], [place] [address] January, [facility] [address] [id number] [address] [place] [address], [place] [address] January, [facility] [address] [id number] [address] [address] January, [facility] [address] [id number] [address] [address] January, [facility] [address] [id number] [address] [address] January, [facility] [address] [id number] [address] [place] [address], [place] [address] January, [facility] [address] [id number] [address] [place] [address], [place] [address] January, [facility] [address] [id number] [address] [place] [address], [place] [address] January, [facility] [address] [id number] [address] [place] [address], [place] [address] January, [facility] [address] [id number] [address] [place] [address], [place] [address] January, [facility] [address] [id number] [address] [place] [address], [place] [address] January, [facility] [address] [id number] [address] [place] [address], [place] [address] January, [facility] [address] [id number] [address] [place] [address], [place] [address] January, [facility] [address] [id number] [address] [place] [address], [place] [address] January, [facility] [address] [id number] [address] [place] [address], [place] [address] January, [facility] [address] [id number] [address] [place] [address], [place] [address] January, [facility] [address] [id number] [address] [place] [address], [place] [address] January, [facility] [address] [id number] [address] [place] [address], [place] [address] Dec, [facility] [address] [id number] [address] [address] Dec, [facility] [address] [id number] [address] [address] Dec, [facility] [address] [id number] [address] [place] [address], [place] [address] Dec, [facility] [address] [id number] [address] [place] [address], [place] [address] Dec, [facility] [address] [id number] [address] [place] [address], [place] [address] Dec, [facility] [address] [id number] [address] [place] [address], [place] [address] Dec, [facility] [address] [id number] [address] [place] [address], [place] [address] Dec, [facility] [address] [id number] [address] [place] [address], [place] [address] Dec, [facility] [address] [id number] [address] [place] [address], [place] [address] Dec, [facility] [address] [id number] [address] [place] [address], [place] [address] Dec, [facility] [address] [id number] [address] [place] [address], [place] [address] Dec, [facility] [address] [id number] [address] [place] [address], [place] [address] Dec, [facility] [address] [id number] [address] [place] [address], [place] [address] Dec, [facility] [address] [id number] [address] [place] [address], [place] [address] Dec, [facility] [address] [id number] [address] [place] [address], [place] [address] Dec, [facility] [address] [id number] [address] [address] 08 Dec, 2013 [facility] [address] [id number] [address] [place] [address], [place] [address] Dec, [facility] [address] [id number] [address] [place] [address], [place] [address] Dec, [facility] [address] [id number] [address] [place] [address], [place] [address] Dec, [facility] [address] [id number] [address] [place] [address], [place] [address] Dec, [facility] [address] [id number] [address] [place] [address], [place] [address] Dec, [facility] [address] [id number] [address] [place] [address], [place] [address] Nov, [facility] [address] [id number] [address] [place] [address], [place] [address] Nov, [facility] [address] [id number] [address] [place] [address], [place] [address] Nov, [facility] [address] [id number] [address] [place] [address], [place] [address] Nov, [facility] [address] [id number] [address] [place] [address], [place] [address] Nov, [facility] [address] [id number] [address] [place] [address], [place] [address] Nov, [facility] [address] [id number] [address] [place] [address], [place] [address] Nov, [facility] [address] [id number] [address] [place] [address], [place] [address] Nov, [facility] [address] [id number] [address] [place] [address], [place] [address] Nov, [facility] [address] [id number] [address] [place] [address], [place] [address] Nov, [facility] [address] [id number] [address] [address] 18 Nov, 2013 [facility] [address] [id number] [address] [place] [address], [place] [address] 18 Nov, 2013 [facility] [address] [id number] [address] [place] [address], [place] [address] 14 Nov, 2013 [facility] [address] [id number] [address] [place] [address], [place] [address] 14 Nov, 2013 [facility] [address] [id number] [address] [place] [address], [place] [address] Nov, [facility] [address] [id number] [address] [place] [address], [place] [address] Nov, [facility] [address] [id number] [address] [place] [address], [place] [address] Oct, [facility] [address] [id number] [address] [place] [address], [place] [address] Oct, [facility] [address] [id number] [address] [place] [address], [place] [address] Oct, [facility] [address] [id number] [address] [place] [address], [place] [address] Oct, [facility] [address] [id number] [address] [place] [address], [place] [address] Oct, [facility] [address] [id number] [address] [place] [address], [place] [address] Oct, [facility] [address] [id number] [address] [place] [address], [place] [address] Oct, [facility] [address] [id number] [address] [place] [address], [place] [address] Oct, [facility] [address] [id number] [address] [place] [address], [place] [address] Oct, [facility] [address] [id number] [address] [address] 17 Oct, 2013 [facility] [address] [id number] [address] [place] [address], [place] [address] 14 Oct, 2013 [facility] [address] [id number] [address] [place] [address], [place] [address] 14 Oct, 2013 [facility] [address] [id number] [address] [place] [address], [place] [address] 04 Oct, 2013 [facility] [address] [id number] [address] [place] [address], [place] [address] 04 Oct, 2013 [facility] [address] [id number] [address] [place] [address], [place] [address] 03 Oct, 2013 [facility] [address] [id number] [address] [place] [address], [place] [address] Sep, [facility] [address] [id number] [address] [place] [address], [place] [address] Sep, [facility] [address] [id number] [address] [place] [address], [place] [address] Sep, [facility] [address] [id number] [address] [place] [address], [place] [address] Sep, [facility] [address] [id number] [address] [place] [address], [place] [address] Sep, [facility] [address] [id number] [address] [place] [address], [place] [address] Sep, [facility] [address] [id number] [address] [place] [address], [place] [address] Sep, [facility] [address] [id number] [address] [place] [address], [place] [address] Sep, [facility] [address] [id number] [address] [place] [address], [place] [address] Sep, [facility] [address] [id number] [address] [place] [address], [place] [address] Sep, [facility] [address] [id number] [address] [place] [address], [place] [address] Sep, [facility] [address] [id number] [address] [place] [address], [place] [address] Sep, [facility] [address] [id number] [address] [place] [address], [place] [address] Sep, [facility] [address] [id number] [address] [place] [address], [place] [address] Aug, [facility] [address] [id number] [address] [place] [address], [place] [address] Aug, [facility] [address] [id number] [address] [place] [address], [place] [address] Aug, [facility] [address] [id number] [address] [place] [address], [place] [address] Aug, [facility] [address] [id number] [address] [place] [address], [place] [address] Aug, [facility] [address] [id number] [address] [place] [address], [place] [address] 17 Aug, 2013 [facility] [address] [id number] [address] [place] [address], [place] [address] 16 Aug, 2013 [facility] [address] [id number] [address] [place] [address], [place] [address] 16 Aug, 2013 [facility] [address] [id number] [address] [place] [address], [place] [address] 12 Aug, 2013 [facility] [address] [id number] [address] [place] [address], [place] [address] Aug, [facility] [address] [id number] [address] [place] [address], [place] [address] 10 Aug, 2013 [facility] [address] [id number] [address] [place] [address], [place] [address] 10 Aug, 2013 [facility] [address] [id number] [address] [place] [address], [place] [address] 02 Aug, 2013 [facility] [address] [id number] [address] [place] [address], [place] [address] 02 Aug, 2013 [facility] [address] [id number] [address] [place] [address], [place] [address] 19 Jul, 2013 [facility] [address] [id number] [address] [place] [address], [place] [address] 19 Jul, 2013 [facility] [address] [id number] [address] [place] [address], [place] [address] 18 Jul, 2013 [facility] [address] [id number] [address] [place] [address], [place] [address] 18 Jul, 2013 [facility] [address] [id number] [address] [place] [address], [place] [address] 14 Jul, 2013 [facility] [address] [id number] [address] [place] [address], [place] [address] 14 Jul, 2013 [facility] [address] [id number] [address] [place] [address], [place] [address] 14 Jul, 2013 [facility] [address] [id number] [address] [place] [address], [place] [address] 14 Jul, 2013 [facility] [address] [id number] [address] [place] [address], [place] [address] 07 Jul, 2013 [facility] [address] [id number] [address] [place] [address], [place] [address] 07 Jul, 2013 [facility] [address] [id number] [address] [place] [address], [place] [address] 06 Jul, 2013 [facility] [address] [id number] [address] [place] [address], [place] [address] 06 Jul, 2013 [facility] [address] [id number] [address] [place] [address], [place] [address] 05 Jul, 2013 [facility] [address] [id number] [address] [place] [address] 05 Jul, 2013 [facility] [address] [id number] [address] [place] [address], [place] [address] 23 Jun, 2013 [facility] [address] [id number] [address] [place] [address], [place] [address] 23 Jun, 2013 [facility] [address] [id number] [address] [place] [address], [place] [address] 15 Jun, 2013 [facility] [address] [id number] [address] [place] [address], [place] [address] 15 Jun, 2013 [facility] [address] [id number] [address] [place] [address], [place] [address] 14 Jun, 2013 [facility] [address] [id number] [address] [place] [address], [place] [address] 24 May, 2012 [facility] [address] [id number] [address] [place] [address], [place] [address] 20 May, 2012 [facility] [address] [id number] [address] [place] [address], [place] [address] 20 May, 2012 [facility] [address] [id number] [address] [place] [address], [place] [address] 20 May, 2012 [facility] [address] [id number] [address] [place] [address], [place] [address] 19 May, 2012 [facility] [address] [id number] [address] [place] [address], [place] [address] 13 May, 2012 [facility] [address] [id number] [address] [place] [address], [place] [address] 12 May, 2012 [facility] [address] [id number] [address] [place] [address], [place] [address] 12 May, 2012 [facility] [address] [id number] [address] [place] [address], [place] [address] 11 May, 2012 [facility] [address] [id number] [address] [place] [address], [place] [address] 11 May, 2012 [facility] [address] [id number] [address] [place] [address], [place] [address] May, [facility] [address] [id number] [address] [place] [address], [place] [address] May, 2012 [facility] [address] [id number] [address] [place] [address], [place] [address] 05 May, 2013 [facility] [address] [id number] [address] [place] [address], [place] [address] May, [facility] [address] [id number] [address] [place] [address], [place] [address] May, [facility] [address] [id number] [address] [place] [address], [place] [address] Apr, [facility] [address] [id number] [address] [place] [address], [place] [address] Apr, [facility] [address] [id number] [address] [place] [address], [place] [address] Apr, [facility] [address] [id number] [address] [place] [address], [place] [address] Apr, [facility] [address] [id number] [address] [place] [address], [place] [address] Apr, [facility] [address] [id number] [address] [place] [address], [place] [address] Apr, [facility] [address] [id number] [address] [place] [address], [place] [address] Apr, [facility] [address] [id number] [address] [place] [address], [place] [address] Apr, [facility] [address] [id number] [address] [place] [address], [place] [address] Apr, [facility] [address] [id number] [address] [place] [address], [place] [address] Mar, [facility] [address] [id number] [address] [place] [address], [place] [address] Mar, [facility] [address] [id number] [address] [place] [address], [place] [address] Mar, [facility] [address] [id number] [address] [place] [address], [place] [address] Mar, [facility] [address] [id number] [address] [place] [address], [place] [address] Mar, [facility] [address] [id number] [address] [place] [address], [place] [address] Mar, [facility] [address] [id number] [address] [place] [address], [place] [address] Mar, [facility] [address] [id number] [address] [place] [address], [place] [address] Mar, [facility] [address] [id number] [address] [place] [address], [place] [address] Mar, [facility] [address] [id number] [address] [place] [address], [place] [address] Mar, [facility] [address] [id number] [address] [place] [address], [place] [address] Mar, [facility] [address] [id number] [address] [place] [address], [place] [address] Feb, [facility] [address] [id number] [address] [place] [address], [place] [address] Feb, [facility] [address] [id number] [address] [place] [address], [place] [address] Feb, [facility] [address] [id number] [address] [place] [address], [place] [address] Feb, [facility] [address] [id number] [address] [place] [address], [place] [address] Feb, [facility] [address] [id number] [address] [place] [address], [place] [address] Feb, [facility] [address] [id number] [address] [place] [address], [place] [address] Feb, [facility] [address] [id number] [address] [place] [address], [place] [address] Feb, [facility] [address] [id number] [address] [place] [address], [place] [address] Feb, [facility] [address] [id number] [address] [place] [address], [place] [address] January, [facility] [address] [id number] [address] [place] [address], [place] [address] January, [facility] [address] [id number] [address] [place] [address], [place] [address] January, [facility] [address] [id number] [address] [place] [address], [place] [address] January, [facility] [address] [id number] [address] [place] [address], [place] [address] January, [facility] [address] [id number] [address] [place] [address], [place] [address] January, [facility] [address] [id number] [address] [place] [address], [place] [address] January, [facility] [address] [id number] [address] [place] [address], [place] [address] January, [facility] [address] [id number] [address] [place] [address], [place] [address] January, [facility] [address] [id number] [address] [place] [address], [place] [address] January, [facility] [address] [id number] [address] [place] [address], [place] [address] January, [facility] [address] [id number] [address] [place] [address], [place] [address] January, [facility] [address] [id number] [address] [place] [address], [place] [address] January, [facility] [address] [id number] [address] [place] [address], [place] [address] January, [facility] [address] [id number] [address] [place] [address], [place] [address] January, [facility] [address] [id number] [address] [place] [address], [place] [address] January, [facility] [address] [id number] [address] [place] [address], [place] [address] January, [facility] [address] [id number] [address] [place] [address], [place] [address] January, [facility] [address] [id number] [address] [place] [address], [place] [address] January, [facility] [address] [id number] [address] [place] [address], [place] [address] January, [facility] [address] [id number] [address] [place] [address], [place] [address] January, [facility] [address] [id number] [address] [place] [address], [place] [address] January, [facility] [address] [id number] [address] [place] [address], [place] [address] January, [facility] [address] [id number] [address] [place] [address], [place] [address] Dec, [facility] [address] [id number] [address] [place] [address], [place] [address] Dec, [facility] [address] [id number] [address] [place] [address], [place] [address] 17 Dec, 2012 [facility] [address] [id number] [address] [place] [address], [place] [address] 16 Dec, 2012 [facility] [address] [id number] [address] [place] [address], [place] [address] Dec, [facility] [address] [id number] [address] [place] [address], [place] [address] Nov, [facility] [address] [id number] [address] [place] [address], [place] [address] Oct, [facility] [address] [id number] [address] [place] [address], [place] [address] Oct, [facility] [address] [id number] [address] [place] [address], [place] [address] Oct, [facility] [address] [id number] [address] [place] [address], [place] [address] Oct, [facility] [address] [id number] [address] [place] [address], [place] [address] Oct, [facility] [address] [id number] [address] [place] [address], [place] [address] Sep, [facility] [address] [id number] [address] [place] [address], [place] [address] Sep, [facility] [address] [id number] [address] [place] [address], [place] [address] Sep, [facility] [address] [id number] [address] [place] [address], [place] [address] Aug, [facility] [address] [id number] [address] [place] [address], [place] [address] Aug, [facility] [address] [id number] [address] [place] [address], [place] [address] Aug, [facility] [address] [id number] [address] [place] [address], [place] [address] Aug, [facility] [address] [id number] [address] [place] [address], [place] [address] Jul, [facility] [facility] [address] [id number] [address] [place] [address], [place] [address] Jul, [facility] [address] [id number] [address] [place] [address], [place] [address] Jul, [facility] [address] [id number] [address] [place] [address], [place] [address] Jul, [facility] [address] [id number] [address] [place] [address], [place] [address] Jul, [facility] [address] [id number] [address] [place] [address], [place] [address] Jul, [facility] [address] [id number] [address] [place] [address], [place] [address] Jun, [facility] [address] [id number] [address] [place] [address], [place] [address] Jun, [facility] [address] [id number] [address] [place] [address], [place] [address] Jun, [facility] [address] [id number] [address] [place] [address], [place] [address] Jun, [facility] [address] [id number] [address] [place] [address], [place] [address] Jun, [facility] [address] [id number] [address] [place] [address], [place] [address] Jun, [facility] [address] [id number] [address] [place] [address], [place] [address] Jun, [facility] [address] [id number] [address] [place] [address], [place] [address] Jun, [facility] [address] [id number] [address] [place] [id number] Jun, [facility] [address] [id number] [address] [place] [id number] 02 Jun, 2012 [facility] [address] [id number] [address] [place] [address], [place] [address] 17 May, 2012 [facility] [address] [id number] [address] [place] [address], [place] [address] 08 May, 2012 [facility] [address] [id number] [address] [place] [address], [place] [address] 06 Sep2011 [facility] [address] [id number] [address] [place] [address], [place] [address] Apr, [facility] [address] [id number] [address] [place] [address], [place] [address] Apr, [facility] [address] [id number] [address] [place] [address], [place] [address] Apr, [facility] [address] [id number] [address] [place] [address], [place] [address] Apr, [facility] [address] [id number] [address] [place] [address], [place] [address] Apr, [facility] [address] [id number] [address] [place] [address], [place] [address] Apr, [facility] [address] [id number] [address] [place] [address], [place] [address] Apr, [facility] [address] [id number] [address] [place] [address], [place] [address] Apr, [facility] [address] [id number] [address] [place] [address], [place] [address] Apr, [facility] [address] [id number] [address] [place] [address], [place] [address] Mar, [facility] [address] [id number] [address] [place] [address], [place] [address] Mar, [facility] [address] [id number] [address] [place] [address], [place] [address] Mar, [facility] [address] [id number] [address] [place] [address], [place] [address] Mar, [facility] [address] [id number] [address] [place] [address], [place] [address] Feb, [facility] [address] [id number] [address] [place] [address], [place] [address] Feb, [facility] [address] [id number] [address] [place] [address], [place] [address] Feb, [facility] [address] [id number] [address] [place] [address], [place] [address] January, [facility] [address] [id number] [address] [place] [address], [place] [address] January, [facility] [address] [id number] [address] [place] [address], [place] [address] January, [facility] [address] [id number] [address] [place] [address], [place] [address] January, [facility] [address] [id number] [address] [place] [address], [place] [address] January, [facility] [address] [id number] [address] [place] [address], [place] [address] Dec, [facility] [address] [id number] [address] [place] [address], [place] [address] Dec, [facility] [address] [id number] [address] [place] [address], [place] [address] Dec, [facility] [address] [id number] [address] [place] [address], [place] [address] Oct, [facility] [address] [id number] [address] [place] [address], [place] [address] Oct, [facility] [address] [id number] [address] [place] [address], [place] [address] Oct, [facility] [address] [id number] [address] [place] [address], [place] [address] Sep, [facility] [address] [id number] [address] [place] [address], [place] [address] Sep, [facility] [address] [id number] [address] [place] [address], [place] [address] Aug, [facility] [address] [id number] [address] [place] [address], [place] [address] Jul, [facility] [address] [id number] [address] [place] [address], [place] [address] 08 Jul, 2011 [facility] [address] [id number] [address] [place] [address], [place] [address] 12 Mar, 2011 [facility] [address] [id number] [address] [place] [address], [place] [address] 10 Aug, 2010 [facility] [address] [id number] [address] [place] [address], [place] [address] 10 Jul, 2010 [facility] [address] [id number] [address] [place] [address], [place] [address] Jul, [facility] [address] [id number] [address] [place] [address], [place] [address] Jul, [facility] [address] [id number] [address] [place] [address], [place] [address] Jul, [facility] [address] [id number] [address] [place] [address], [place] [address] 14 Jun, 2010 [facility] [address] [id number] [address] [place] [address], [place] [address] Jun, [facility] [address] [id number] [address] [place] [address], [place] [address] Apr, [facility] [address] [id number] [address] [place] [address], [place] [address] Aug, [facility] [address] [id number] [address] [place] [address], [place] [address] 17 Jul, 2009 [facility] [address] [id number] [address] [place] [address], [place] [address] 17 Jul, 2009 [facility] [address] [id number] [address] [place] [address], [place] [address] 13 Jul, 2009 [facility] [address] [id number] [address] [place] [address], [place] [address] 23 Jun, 2009 [facility] [address] [id number] [address] [place] [id number] 10 May, 2009 [facility] [address] [facility] [id number] [address] [place] [id number] Dec, [facility] [address] [facility] [id number] [address] [place] [id number] Nov, [facility] [address] [facility] [id number] [address] [place] [id number] Oct, [facility] [address] [facility] [id number] [address] [place] [id number] Aug, [facility] [address] [facility] [id number] [address] [place] [id number] Aug, [facility] [address] [facility] [id number] [address] [place] [id number] Jun, IMMUNIZATIONS No Known Immunizations SOCIAL HISTORY [...] x 3 day s 04/2012 Hospitalization History [facility] [place]- Right wrist injury 03/29/2018
--- OUTSIDE RECORDS SUMMARY | 2020-04-09 00:04 | XMS REPORT ---
Author Author Kateryna TADEO Organization [facility] Address [address] [place] [address] Care Team Providers Care Grievance Manager Name Role Phone ABHISHEK TADEO Unavailable PROBLEMS Type Condition ICD9-CM Code XTT96-FZ Code Onset Dates Condition S tatus SNOMED Code Problem Irregular menses N92.6 Active 801 49116 Problem Migraine with aura and without status migrainosu s, not intractable G43.109 Active 5901395 Problem Uncontrolled type 2 diabetes mellitus with hyperglycemia E11.65 Active 171539918 Problem Morbid obesity due to excess calories E66.01 Active 974531429 Problem RLS (restless legs syndrome) G25.81 A ctive 39144746 Problem Morbid obesity E66.01 Active 50866 6002 ALLERGIES No Information ENCOUNTERS Encounter Location Date Diagnosis [facility] [place] [facility] [address] [id number] [address] [place] [id number] 15 Feb, 2020 Encounter for screening labo ratory testing for COVID-19 virus Z11.59 [facility] [address] [id number] [address] [place] [id number] 08 Feb, 2020 [facility] [id number] [place] [phone] January, [facility] [address] [id number] [address] [place] [phone] January, BMI 50.0-59.9, adult Z68.43 and Vomiting, unspecified R11.10 [facility] [address] [id number] [address] [place] [phone] 14 Jan, 2020 [facility] [address] [id number] [address] [place] [phone] Dec, [facility] [address] [id number] [address] [place] [id number] 27 Dec, 2019 [facility] [address] [id number] [address] [place] [phone] 23 Dec, 2019 Uncontrolled type 2 diabetes mellitus with hyperglycemia E11.65 [facility] [address] [id number] [address] [place] [phone] 07 Dec, 2019 [facility] [address] [facility] [id number] [address] [place] [phone] 06 Dec, 2019 [facility] [address] [id number] [address] [place] [phone] Dec, [facility] [address] [facility] [id number] [address] [place] [id number] 30 Nov, 2019 [facility] [address] [facility] [id number] [address] [place] [phone] Nov, [facility] [address] [facility] [id number] [address] [place] [phone] Nov, [facility] [address] [facility] [id number] [address] [place] [phone] Nov, RLS (restless legs syndrome) G25.81 [facility] [address] [facility] [id number] [address] [place] [phone] 15 Oct, 2019 [facility] [address] [facility] [id number] [address] [place] [phone] 09 Oct, 2019 Influenza J11.1 [facility] [address] [facility] [id number] [address] [place] [phone] 16 Sep, 2019 [facility] [address] [facility] [id number] [address] [place] [phone] 14 Sep, 2019 [facility] [address] [facility] [id number] [address] [place] [phone] 14 Sep, 2019 [facility] [address] [facility] [id number] [address] [place] [phone] 13 Sep, 2019 [facility] [address] [id number] [address] [place] [id number] 10 Sep, 2019 Pneumonia of left lower lobe due to infectious organism J18.9 and Migraine with aura and without status migrainosus, not intractable G43.109 [facility] [address] [id number] [address] [place] [phone] Sep, [facility] [address] [id number] [address] [place] [phone] Sep, [facility] [address] [id number] [address] [place] [phone] Sep, [facility] [address] [id number] [address] [place] [phone] Sep, [facility] [address] [id number] [address] [place] [phone] Sep, Pneumonia of left lower lobe due to infectious organism J18.9 and Migraine with aura and without status migrainosus, not intractable G43.109 [facility] [address] [id number] [address] [place] [phone] Aug, Irregular menses N92.6 ; Wel l woman exam Z01.419 ; Pelvic cramping R10.2 and Left breast lump N63.20 [place] [address] [id number] [address] [place] [phone] Aug, [facility] [address] [id number] [address] [place] [phone] Aug, Well woman exam Z01.419 ; Le ft breast lump N63.20 ; Irregular menses N92.6 ; Encounter for immunization Z23 ; Pelvic cramping R10.2 and Screening for cervical cancer Z12.4 [facility] [address] [id number] [address] [place] [phone] Aug, [facility] [address] [id number] [address] [place] [phone] Aug, [facility] [address] [facility] [id number] [address] [place] [phone] Aug, [facility] [address] [facility] [id number] [address] [place] [phone] Jul, [facility] [address] [id number] [address] [place] [phone] Jun, [facility] [address] [facility] [id number] [address] [place] [phone] Jun, [facility] [address] [facility] [id number] [address] [place] [phone] Jun, [facility] [address] [facility] [id number] [address] [place] [phone] Jun, BMI 50.0-59.9, adult Z68.43 [facility] [address] [facility] [id number] [address] [place] [phone] Jun, [facility] [place] [facility] [address] [facility] [id number] [address] [place] [phone] May, Acute non-recurrent sinusiti s, unspecified location J01.90 ; Diarrhea, unspecified R19.7 ; Vomiting, unspecified R11.10 and Morbid obesity E66.01 [facility] [address] [facility] [id number] [address] [place] [phone] Apr, [facility] [address] [facility] [id number] [address] [place] [phone] Apr, Anemia due to other cause, n ot classified D64.89 and D-dimer, elevated R79.89 [facility] [address] [facility] [id number] [address] [place] [phone] Apr, [facility] [address] [facility] [id number] [address] [place] [phone] Apr, [facility] [address] [facility] [id number] [address] [place] [phone] Mar, Anemia due to other cause, n ot classified D64.89 and D-dimer, elevated R79.89 [facility] [address] [facility] [id number] [address] [place] [phone] Mar, Leg edema, right R60.0 ; Hig h risk medication use Z79.899 and Morbid obesity E66.01 [facility] [address] [facility] [id number] [address] [place] [phone] Mar, BMI 50.0-59.9, adult Z68.43 [place] [address] [facility] [id number] [address] [place] [phone] Mar, [place] [address] [facility] [id number] [address] [place] [phone] January, Uncontrolled type 2 diabetes mellitus with hyperglycemia E11.65 ; RLS (restless legs syndrome) G25.81 and Morbid obesity E66.01 [place] [address] [facility] [id number] [address] [place] [phone] Oct, Lipoma of right lower extrem ity D17.23 [place] [address] [id number] [address] [place] [phone] Oct, Lipoma of right lower extrem ity D17.23 [place] [address] [facility] [id number] [address] [place] [phone] Sep, [facility] [address] [facility] [id number] [address] [place] [phone] Sep, [facility] [address] [id number] [address] [place] [phone] Sep, [facility] [address] [id number] [address] [place] [phone] Sep, [facility] [address] [facility] [id number] [address] [place] [phone] Sep, [facility] [address] [facility] [id number] [address] [place] [phone] Aug, Uncontrolled type 2 diabetes mellitus with hyperglycemia E11.65 ; Morbid obesity due to excess calories E66.01 ; Lipoma of torso D17.1 and BMI 50.0-59.9, adult Z68.43 [facility] [address] [id number] [address] [place] [phone] Jun, Encounter for immunization Z 23 [facility] [address] [id number] [address] [place] [phone] Jul, [facility] [address] [id number] [address] [place] [phone] Jun, Encounter for immunization Z 23 [facility] [address] [id number] [address] [place] [phone] 30 May, 2016 [facility] [address] [id number] [address] [place] [phone] Jun, Encounter for immunization Z 23 [facility] [address] [id number] [address] [place] [phone] May, [facility] [address] [id number] [address] [place] [phone] May, [facility] [address] [id number] [address] [place] [phone] Apr, [facility] [address] [id number] [address] [place] [phone] Feb, [facility] [address] [id number] [address] [place] [phone] Feb, [facility] [address] [id number] [address] [place] [phone] Feb, [facility] [address] [id number] [address] [place] [phone] January, [facility] [address] [id number] [address] [place] [phone] January, [facility] [address] [id number] [address] [place] [phone] Dec, [facility] [address] [id number] [address] [place] [address], [place] [id number] Dec, [facility] [address] [id number] [address] [place] [address], [place] [id number] Nov, [facility] [address] [id number] [address] [place] [address], [place] [address] Nov, [facility] [address] [id number] [address] [place] [address], [place] [id number] Nov, [facility] [address] [id number] [address] [place] [address], [place] [id number] Nov, [facility] [address] [id number] [address] [place] [address], [place] [address] Nov, [facility] [address] [id number] [address] [place] [address], [place] [address] Nov, [facility] [address] [id number] [address] [place] [address], [place] [address] Nov, [facility] [address] [id number] [address] [place] [address], [place] [address] Oct, [facility] [address] [id number] [address] [place] [address], [place] [address] Oct, [facility] [address] [id number] [address] [place] [address], [place] [id number] Oct, [facility] [address] [id number] [address] [place] [phone] Oct, [facility] [address] [id number] [address] [place] [address], [place] [address] Oct, [facility] [address] [id number] [address] [place] [address], [place] [address] Sep, [facility] [address] [id number] [address] [place] [address], [place] [address] Sep, [facility] [address] [id number] [address] [place] [phone] Sep, [facility] [address] [id number] [address] [place] [address], [place] [address] Sep, [facility] [address] [id number] [address] [place] [address], [place] [address] Sep, [facility] [address] [id number] [address] [place] [address], [place] [address] Sep, [facility] [address] [id number] [address] [place] [address], [place] [address] Sep, [facility] [address] [id number] [address] [place] [address], [place] [address] Sep, [facility] [address] [id number] [address] [place] [address], [place] [address] Sep, [facility] [address] [id number] [address] [place] [address], [place] [address] Sep, [facility] [address] [id number] [address] [place] [address], [place] [address] Aug, [facility] [address] [id number] [address] [place] [address], [place] [address] Aug, [facility] [address] [id number] [address] [place] [address], [place] [address] Aug, [facility] [address] [id number] [address] [place] [address], [place] [address] Aug, [facility] [address] [id number] [address] [place] [address], [place] [address] Aug, [facility] [address] [id number] [address] [place] [address], [place] [address] Aug, [facility] [address] [id number] [address] [place] [address], [place] [address] Aug, [facility] [address] [id number] [address] [place] [address], [place] [address] Aug, [facility] [address] [id number] [address] [place] [address], [place] [address] 24 Aug, 2014 [facility] [address] [id number] [address] [place] [address], [place] [address] Aug, [facility] [address] [id number] [address] [place] [address], [place] [address] Aug, [facility] [address] [id number] [address] [place] [address], [place] [address] Aug, [facility] [address] [id number] [address] [place] [address], [place] [address] Aug, [facility] [address] [id number] [address] [place] [address], [place] [address] Aug, [facility] [address] [id number] [address] [place] [address], [place] [address] 17 Aug, 2014 [facility] [address] [id number] [address] [place] [address], [place] [id number] 17 Aug, 2014 [facility] [address] [id number] [address] [place] [address], [place] [address] 16 Aug, 2014 [facility] [address] [id number] [address] [place] [address], [place] [address] Aug, [facility] [address] [id number] [address] [place] [address], [place] [address] Aug, [facility] [address] [id number] [address] [place] [address], [place] [address] Aug, [facility] [address] [id number] [address] [place] [address], [place] [address] 08 Aug, 2014 [facility] [address] [id number] [address] [place] [address], [place] [address] Aug, [facility] [address] [id number] [address] [place] [address], [place] [address] 05 Aug, 2014 [facility] [address] [id number] [address] [place] [address], [place] [id number] 05 Aug, 2014 [facility] [address] [id number] [address] [place] [address], [place] [address] 07 Jul, 2014 [facility] [address] [id number] [address] [place] [address], [place] [address] 07 Jul, 2014 [facility] [address] [id number] [address] [place] [address], [place] [address] 27 Jun, 2014 [facility] [address] [id number] [address] [place] [address], [place] [address] 27 Jun, 2014 [facility] [address] [id number] [address] [place] [address], [place] [address] 17 Jun, 2014 [facility] [address] [id number] [address] [place] [address], [place] [address] 17 Jun, 2014 [facility] [address] [id number] [address] [place] [address], [place] [address] 15 Jun, 2014 [facility] [address] [id number] [address] [place] [address], [place] [address] 15 Jun, 2014 [facility] [address] [id number] [address] [place] [address], [place] [address] 14 Jun, 2014 [facility] [address] [id number] [address] [place] [id number] 14 Jun, 2014 [facility] [address] [id number] [address] [place] [address], [place] [address] 13 Jun, 2014 [facility] [address] [id number] [address] [place] [id number] 13 Jun, 2014 [facility] [address] [id number] [address] [place] [address], [place] [address] 13 Jun, 2014 [facility] [address] [id number] [address] [place] [address], [place] [address] 13 Jun, 2014 [facility] [address] [id number] [address] [place] [address], [place] [address] 06 Jun, 2014 [facility] [address] [id number] [address] [place] [address], [place] [address] Jun, [facility] [address] [id number] [facility] [place] [address] May, 2013 [facility] [address] [id number] [address] [place] [address], [place] [address] May, 2013 [facility] [address] [id number] [address] [place] [address], [place] [address] May, 2013 [facility] [address] [id number] [address] [place] [address], [place] [address] May, 2013 [facility] [address] [id number] [address] [place] [address], [place] [address] May, 2013 [facility] [address] [id number] [address] [place] [address], [place] [address] May, 2013 [facility] [address] [id number] [address] [place] [address], [place] [address] May, 2013 [facility] [address] [id number] [address] [place] [address], [place] [address] May, [facility] [address] [id number] [address] [place] [address], [place] [id number] Apr, [facility] [address] [id number] [address] [place] [address], [place] [address] Apr, [facility] [address] [id number] [address] [place] [address], [place] [id number] Apr, [facility] [address] [id number] [address] [place] [address], [place] [address] Apr, [facility] [address] [id number] [address] [place] [address], [place] [id number] Apr, [facility] [address] [id number] [address] [place] [address], [place] [address] Apr, [facility] [address] [id number] [address] [place] [address], [place] [address] Apr, [facility] [address] [id number] [facility] [place] [address] Apr, [facility] [address] [id number] [address] [place] [address], [place] [address] Apr, [facility] [address] [id number] [facility] [place] [id number] Mar, [facility] [address] [id number] [address] [place] [address], [place] [address] Mar, [facility] [address] [id number] [address] [place] [address], [place] [id number] Mar, [facility] [address] [id number] [address] [place] [address], [place] [id number] Feb, [facility] [address] [id number] [address] [place] [address], [place] [id number] Feb, [facility] [address] [id number] [address] [place] [address], [place] [id number] Feb, [facility] [address] [id number] [address] [place] [address], [place] [id number] Feb, [facility] [address] [id number] [address] [place] [address], [place] [id number] Feb, [facility] [address] [id number] [address] [place] [address], [place] [id number] Feb, [facility] [address] [id number] [address] [place] [address], [place] [address] Feb, [facility] [address] [id number] [address] [place] [address], [place] [address] Feb, [facility] [address] [id number] [address] [place] [address], [place] [address] Feb, [facility] [address] [id number] [address] [place] [address], [place] [id number] 16 Feb, 2014 [facility] [address] [id number] [address] [place] [address], [place] [address] Feb, [facility] [address] [id number] [facility] [place] [address] Feb, [facility] [address] [id number] [address] [place] [address], [place] [address] Feb, [facility] [address] [id number] [address] [place] [address], [place] [id number] Feb, [facility] [address] [id number] [address] [place] [address], [place] [id number] Feb, [facility] [address] [id number] [address] [place] [address], [place] [id number] Feb, [facility] [address] [id number] [address] [place] [address], [place] [id number] January, [facility] [address] [id number] [address] [place] [address], [place] [id number] January, [facility] [address] [id number] [address] [place] [address], [place] [address] January, [facility] [address] [id number] [address] [place] [address], [place] [address] January, [facility] [address] [id number] [address] [place] [address], [place] [id number] January, [facility] [address] [id number] [address] [place] [address], [place] [id number] January, [facility] [address] [id number] [address] [place] [address], [place] [id number] January, [facility] [address] [id number] [address] [place] [address], [place] [id number] January, [facility] [address] [id number] [address] [place] [address], [place] [id number] January, [facility] [address] [id number] [address] [place] [address], [place] [address] January, [facility] [address] [id number] [facility] [place] [address] January, [facility] [address] [id number] [address] [place] [address], [place] [address] January, [facility] [address] [id number] [address] [place] [address], [place] [address] January, [facility] [address] [id number] [address] [place] [address], [place] [address] January, [facility] [address] [id number] [address] [place] [address], [place] [address] January, [facility] [address] [id number] [address] [place] [address], [place] [address] January, [facility] [address] [id number] [address] [place] [address], [place] [address] January, [facility] [address] [id number] [address] [place] [address], [place] [address] January, [facility] [address] [id number] [address] [place] [address], [place] [address] January, [facility] [address] [id number] [address] [place] [address], [place] [address] January, [facility] [address] [id number] [address] [place] [address], [place] [address] January, [facility] [address] [id number] [address] [place] [address], [place] [address] January, [facility] [address] [id number] [address] [place] [address], [place] [address] January, [facility] [address] [id number] [address] [place] [address], [place] [address] January, [facility] [address] [id number] [address] [place] [address], [place] [address] January, [facility] [address] [id number] [address] [place] [address], [place] [address] January, [facility] [address] [id number] [address] [place] [address], [place] [address] Dec, [facility] [address] [id number] [address] [place] [address], [place] [address] Dec, [facility] [address] [id number] [address] [place] [address], [place] [address] Dec, [facility] [address] [id number] [address] [place] [address], [place] [address] Dec, [facility] [address] [id number] [address] [place] [address], [place] [address] Dec, [facility] [address] [id number] [address] [place] [address], [place] [address] Dec, [facility] [address] [id number] [address] [place] [address], [place] [address] Dec, [facility] [address] [id number] [address] [place] [address], [place] [address] Dec, [facility] [address] [id number] [address] [place] [address], [place] [address] Dec, [facility] [address] [id number] [address] [place] [address], [place] [address] Dec, [facility] [address] [id number] [address] [place] [address], [place] [address] Dec, [facility] [address] [id number] [address] [place] [address], [place] [address] Dec, [facility] [address] [id number] [address] [place] [address], [place] [address] Dec, [facility] [address] [id number] [address] [place] [address], [place] [address] Dec, [facility] [address] [id number] [address] [place] [address], [place] [address] Dec, [facility] [address] [id number] [address] [place] [address], [place] [address] Dec, [facility] [address] [id number] [address] [place] [address], [place] [address] Dec, [facility] [address] [id number] [address] [place] [address], [place] [address] Dec, [facility] [address] [id number] [address] [place] [address], [place] [address] Dec, [facility] [address] [id number] [address] [place] [address], [place] [address] Dec, [facility] [address] [id number] [address] [place] [address], [place] [address] Dec, [facility] [address] [id number] [address] [place] [address], [place] [address] Dec, [facility] [address] [id number] [address] [place] [address], [place] [address] Nov, [facility] [address] [id number] [address] [place] [address], [place] [address] Nov, [facility] [address] [id number] [address] [place] [address], [place] [address] Nov, [facility] [address] [id number] [address] [place] [address], [place] [address] Nov, [facility] [address] [id number] [address] [place] [address], [place] [address] Nov, [facility] [address] [id number] [address] [place] [address], [place] [address] 24 Nov, 2013 [facility] [address] [id number] [address] [place] [address], [place] [address] Nov, [facility] [address] [id number] [address] [place] [address], [place] [address] Nov, [facility] [address] [id number] [address] [place] [address], [place] [address] 18 Nov, 2013 [facility] [address] [id number] [address] [place] [address], [place] [address] 18 Nov, 2013 [facility] [address] [id number] [address] [place] [address], [place] [address] 18 Nov, 2013 [facility] [address] [id number] [address] [place] [address], [place] [address] 18 Nov, 2013 [facility] [address] [id number] [address] [place] [address], [place] [address] 14 Nov, 2013 [facility] [address] [id number] [address] [place] [address], [place] [address] 14 Nov, 2013 [facility] [address] [id number] [address] [place] [address], [place] [address] 06 Nov, 2013 [facility] [address] [id number] [address] [place] [address], [place] [address] 06 Nov, 2013 [facility] [address] [id number] [address] [place] [address], [place] [address] Oct, [facility] [address] [id number] [address] [place] [address], [place] [address] Oct, [facility] [address] [id number] [address] [place] [address], [place] [address] 24 Oct, 2013 [facility] [address] [id number] [address] [place] [address], [place] [address] Oct, [facility] [address] [id number] [address] [place] [address], [place] [address] Oct, [facility] [address] [id number] [address] [place] [address], [place] [address] Oct, [facility] [address] [id number] [address] [place] [address], [place] [address] Oct, [facility] [address] [id number] [address] [place] [address], [place] [address] Oct, [facility] [address] [id number] [address] [place] [address], [place] [address] Oct, [facility] [address] [id number] [address] [place] [address], [place] [address] Oct, [facility] [address] [id number] [address] [place] [address], [place] [address] Oct, [facility] [address] [id number] [address] [place] [address], [place] [address] Oct, [facility] [address] [id number] [address] [place] [address], [place] [address] Oct, [facility] [address] [id number] [address] [place] [address], [place] [address] Oct, [facility] [address] [id number] [address] [place] [address], [place] [address] Oct, [facility] [address] [id number] [address] [place] [address], [place] [address] Sep, [facility] [address] [id number] [address] [place] [address], [place] [address] Sep, [facility] [address] [id number] [address] [place] [address], [place] [address] Sep, [facility] [address] [id number] [address] [place] [address], [place] [address] Sep, [facility] [address] [id number] [address] [place] [address], [place] [address] Sep, [facility] [address] [id number] [address] [place] [address], [place] [address] Sep, [facility] [address] [id number] [address] [place] [address], [place] [address] Sep, [facility] [address] [id number] [address] [place] [address], [place] [address] Sep, [facility] [address] [id number] [address] [place] [address], [place] [address] Sep, [facility] [address] [id number] [address] [place] [address], [place] [address] Sep, [facility] [address] [id number] [address] [place] [address], [place] [address] Sep, [facility] [address] [id number] [address] [place] [address], [place] [address] Sep, [facility] [address] [id number] [address] [place] [address], [place] [address] Sep, [facility] [address] [id number] [address] [place] [address], [place] [address] Aug, [facility] [address] [id number] [address] [place] [address], [place] [address] Aug, [facility] [address] [id number] [address] [place] [address], [place] [address] Aug, [facility] [address] [id number] [address] [place] [address], [place] [address] Aug, [facility] [address] [id number] [address] [place] [address], [place] [address] Aug, [facility] [address] [id number] [address] [place] [address], [place] [address] Aug, [facility] [address] [id number] [address] [place] [address], [place] [address] 16 Aug, 2013 [facility] [address] [id number] [address] [place] [address], [place] [address] 16 Aug, 2013 [facility] [address] [id number] [address] [place] [address], [place] [address] Aug, [facility] [address] [id number] [address] [place] [address], [place] [address] Aug, [facility] [address] [id number] [address] [place] [address], [place] [address] 10 Aug, 2013 [facility] [address] [id number] [address] [place] [id number] 10 Aug, 2013 [facility] [address] [id number] [address] [place] [address], [place] [address] 02 Aug, 2013 [facility] [address] [id number] [address] [place] [address], [place] [address] 02 Aug, 2013 [facility] [address] [id number] [address] [place] [address], [place] [address] Jul, [facility] [address] [id number] [address] [place] [id number] 19 Jul, 2013 [facility] [address] [id number] [address] [place] [address], [place] [address] 18 Jul, 2013 [facility] [address] [id number] [address] [place] [address], [place] [address] 18 Jul, 2013 [facility] [address] [id number] [address] [place] [address], [place] [address] 14 Jul, 2013 [facility] [address] [id number] [address] [place] [address], [place] [address] 14 Jul, 2013 [facility] [address] [id number] [address] [place] [address], [place] [address] 14 Jul, 2013 [facility] [address] [id number] [address] [place] [address], [place] [address] 14 Jul, 2013 [facility] [address] [id number] [address] [place] [id number] 07 Jul, 2013 [facility] [address] [id number] [address] [place] [id number] 07 Jul, 2013 [facility] [address] [id number] [address] [place] [address], [place] [address] 06 Jul, 2013 [facility] [address] [id number] [address] [place] [address], [place] [address] 06 Jul, 2013 [facility] [address] [id number] [address] [place] [address], [place] [address] 05 Jul, 2013 [facility] [address] [id number] [address] [place] [address], [place] [address] 05 Jul, 2013 [facility] [address] [id number] [address] [place] [address], [place] [address] 23 Jun, 2013 [facility] [address] [id number] [address] [place] [address], [place] [address] 23 Jun, 2013 [facility] [address] [id number] [address] [place] [address], [place] [address] 15 Jun, 2013 [facility] [address] [id number] [address] [place] [address], [place] [address] 15 Jun, 2013 [facility] [address] [id number] [address] [place] [address], [place] [address] 14 Jun, 2013 [facility] [address] [id number] [address] [place] [address], [place] [address] 24 May, 2012 [facility] [address] [id number] [address] [place] [address], [place] [address] 20 May, 2012 [facility] [address] [id number] [address] [place] [address], [place] [address] 20 May, 2012 [facility] [address] [id number] [address] [place] [address], [place] [address] 20 May, 2012 [facility] [address] [id number] [address] [place] [address], [place] [address] 19 Sep, 2012 [facility] [address] [id number] [address] [place] [address], [place] [address] 13 Sep, 2012 [facility] [address] [id number] [address] [place] [address], [place] [address] 12 Sep, 2012 [facility] [address] [id number] [address] [place] [address], [place] [address] 12 May, 2012 [facility] [address] [id number] [address] [place] [address], [place] [address] 11 May, 2012 [facility] [address] [id number] [address] [place] [address], [place] [address] 11 May, 2012 [facility] [address] [id number] [facility] [place] [address] 11 May, 2012 [facility] [address] [id number] [address] [place] [address], [place] [address] 09 May, 2012 [facility] [address] [id number] [address] [place] [address], [place] [address] 05 May, 2012 [facility] [address] [id number] [address] [place] [address], [place] [address] 04 May, 2012 [facility] [address] [id number] [address] [place] [address], [place] [address] May, 2012 [facility] [address] [id number] [address] [place] [address], [place] [address] Apr, [facility] [address] [id number] [address] [place] [address], [place] [address] Apr, [facility] [address] [id number] [address] [place] [address], [place] [address] Apr, [facility] [address] [id number] [address] [place] [address], [place] [address] Apr, [facility] [address] [id number] [address] [place] [address], [place] [address] Apr, [facility] [address] [id number] [address] [place] [address], [place] [address] Apr, [facility] [address] [id number] [address] [place] [address], [place] [address] Apr, [facility] [address] [id number] [address] [place] [address], [place] [address] Apr, [facility] [address] [id number] [address] [place] [address], [place] [address] Apr, [facility] [address] [id number] [address] [place] [address], [place] [address] Mar, [facility] [address] [id number] [address] [place] [address], [place] [address] Mar, [facility] [address] [id number] [address] [place] [address], [place] [address] Mar, [facility] [address] [id number] [address] [place] [address], [place] [address] Mar, [facility] [address] [id number] [address] [place] [address], [place] [address] Mar, [facility] [address] [id number] [address] [place] [address], [place] [address] Mar, [facility] [address] [id number] [address] [place] [address], [place] [address] Mar, [facility] [address] [id number] [address] [place] [address], [place] [address] Mar, [facility] [address] [id number] [address] [place] [address], [place] [address] Mar, [facility] [address] [id number] [address] [place] [address], [place] [address] Mar, [facility] [address] [id number] [address] [place] [address], [place] [address] Mar, [facility] [address] [id number] [address] [place] [address], [place] [address] Feb, [facility] [address] [id number] [address] [place] [address], [place] [address] Feb, [facility] [address] [id number] [address] [place] [address], [place] [address] Feb, [facility] [address] [id number] [address] [place] [address], [place] [address] Feb, [facility] [address] [id number] [address] [place] [address], [place] [address] Feb, [facility] [address] [id number] [address] [place] [address], [place] [address] Feb, [facility] [address] [id number] [address] [place] [address], [place] [address] Feb, [facility] [address] [id number] [address] [place] [address], [place] [address] Feb, [facility] [address] [id number] [address] [place] [address], [place] [id number] Feb, [facility] [address] [id number] [address] [place] [address], [place] [id number] January, [facility] [address] [id number] [address] [place] [address], [place] [address] January, [facility] [address] [id number] [address] [place] [address], [place] [address] January, [facility] [address] [id number] [address] [place] [address], [place] [address] January, [facility] [address] [id number] [address] [place] [address], [place] [address] January, [facility] [address] [id number] [address] [place] [address], [place] [address] January, [facility] [address] [id number] [address] [place] [address], [place] [address] January, [facility] [address] [id number] [address] [place] [address], [place] [address] January, [facility] [address] [id number] [address] [place] [address], [place] [address] January, [facility] [address] [id number] [address] [place] [address], [place] [address] January, [facility] [address] [id number] [address] [place] [address], [place] [address] January, [facility] [address] [id number] [address] [place] [address], [place] [address] January, [facility] [address] [id number] [address] [place] [address], [place] [address] January, [facility] [address] [id number] [address] [place] [address], [place] [address] January, [facility] [address] [id number] [address] [place] [address], [place] [address] January, [facility] [address] [id number] [address] [place] [address], [place] [address] January, [facility] [address] [id number] [address] [place] [address], [place] [address] January, [facility] [address] [id number] [address] [place] [address], [place] [address] January, [facility] [address] [id number] [address] [place] [address], [place] [address] January, [facility] [address] [id number] [address] [place] [address], [place] [address] January, [facility] [address] [id number] [address] [place] [address], [place] [address] January, [facility] [address] [id number] [address] [place] [address], [place] [address] January, [facility] [address] [id number] [address] [place] [address], [place] [address] January, [facility] [address] [id number] [address] [place] [address], [place] [address] Dec, [facility] [address] [id number] [address] [place] [address], [place] [address] 18 Dec, 2012 [facility] [address] [id number] [address] [place] [address], [place] [id number] 17 Dec, 2012 [facility] [address] [id number] [address] [place] [address], [place] [id number] 16 Dec, 2012 [facility] [address] [id number] [address] [place] [address], [place] [address] Dec, [facility] [address] [id number] [address] [place] [address], [place] [address] Nov, [facility] [address] [id number] [address] [place] [address], [place] [address] Oct, [facility] [address] [id number] [address] [place] [address], [place] [address] Oct, [facility] [address] [id number] [address] [place] [address], [place] [address] Oct, [facility] [address] [id number] [address] [place] [address], [place] [address] Oct, [facility] [address] [id number] [address] [place] [address], [place] [address] Oct, [facility] [address] [id number] [address] [place] [address], [place] [address] Sep, [facility] [address] [id number] [address] [place] [address], [place] [address] Sep, [facility] [address] [id number] [address] [place] [address], [place] [address] Sep, [facility] [address] [id number] [address] [place] [address], [place] [address] Aug, [facility] [address] [id number] [address] [place] [address], [place] [address] Aug, [facility] [address] [id number] [address] [place] [address], [place] [address] Aug, [facility] [address] [id number] [address] [place] [address], [place] [address] Aug, [facility] [address] [id number] [address] [place] [address], [place] [address] Jul, [facility] [address] [id number] [address] [place] [address], [place] [address] Jul, [facility] [address] [id number] [address] [place] [address], [place] [address] Jul, [facility] [address] [id number] [address] [place] [address], [place] [address] Jul, [facility] [address] [id number] [address] [place] [address], [place] [id number] Jul, [facility] [address] [id number] [address] [place] [address], [place] [id number] Jul, [facility] [address] [id number] [address] [place] [address], [place] [id number] Jun, [facility] [address] [id number] [address] [place] [address], [place] [address] Jun, [facility] [address] [id number] [address] [place] [address], [place] [address] Jun, [facility] [address] [id number] [address] [place] [address], [place] [address] Jun, [facility] [address] [id number] [address] [place] [id number] Jun, [facility] [address] [id number] [address] [place] [address], [place] [address] Jun, [facility] [address] [id number] [address] [place] [id number] Jun, [facility] [address] [id number] [address] [place] [id number] Jun, [facility] [address] [id number] [address] [place] [id number] Jun, [facility] [address] [id number] [address] [place] [address], [place] [address] Jun, [facility] [address] [id number] [address] [place] [id number] 17 May, 2012 [facility] [address] [id number] [address] [place] [id number] 08 May, 2012 [facility] [address] [id number] [address] [place] [address], [place] [id number] May, [facility] [address] [id number] [address] [place] [address], [place] [id number] Apr, [facility] [address] [id number] [address] [place] [address], [place] [address] Apr, [facility] [address] [id number] [address] [place] [address], [place] [id number] Apr, [facility] [address] [id number] [address] [place] [address], [place] [address] Apr, [facility] [address] [id number] [address] [place] [address], [place] [address] Apr, [facility] [address] [id number] [address] [place] [address], [place] [address] Apr, [facility] [address] [id number] [address] [place] [address], [place] [address] Apr, [facility] [address] [id number] [address] [place] [address], [place] [address] Apr, [facility] [address] [id number] [address] [place] [address], [place] [address] Apr, [facility] [address] [id number] [address] [place] [address], [place] [address] Mar, [facility] [address] [id number] [address] [place] [address], [place] [address] Mar, [facility] [address] [id number] [address] [place] [address], [place] [address] Mar, [facility] [address] [id number] [address] [place] [address], [place] [address] Mar, [facility] [address] [id number] [address] [place] [address], [place] [address] Feb, [facility] [address] [id number] [address] [place] [address], [place] [address] Feb, [facility] [address] [id number] [address] [place] [address], [place] [address] Feb, [facility] [address] [id number] [address] [place] [address], [place] [address] January, [facility] [address] [id number] [address] [place] [address], [place] [id number] January, [facility] [address] [id number] [address] [place] [address], [place] [id number] January, [facility] [address] [id number] [address] [place] [address], [place] [id number] January, [facility] [address] [id number] [address] [place] [address], [place] [address] January, [facility] [address] [id number] [address] [place] [address], [place] [address] Dec, [facility] [address] [id number] [address] [place] [address], [place] [address] Dec, [facility] [address] [id number] [address] [place] [address], [place] [address] Dec, [facility] [address] [id number] [address] [place] [address], [place] [address] Oct, [facility] [address] [id number] [address] [place] [address], [place] [address] Oct, [facility] [address] [id number] [address] [place] [address], [place] [address] Oct, [facility] [address] [id number] [address] [place] [address], [place] [address] Sep, [facility] [address] [id number] [address] [place] [address], [place] [address] Sep, [facility] [address] [id number] [address] [place] [address], [place] [address] Aug, [facility] [address] [id number] [address] [place] [id number] 08 Jul, 2011 [facility] [address] [id number] [address] [place] [address], [place] [id number] 08 Jul, 2011 [facility] [address] [id number] [address] [place] [id number] Mar, [facility] [address] [id number] [address] [place] [address], [place] [address] Aug, [facility] [address] [id number] [address] [place] [id number] 10 Jul, 2010 [facility] [address] [id number] [address] [place] [address], [place] [address] Jul, [facility] [address] [id number] [address] [place] [address], [place] [address] Jul, [facility] [address] [id number] [address] [place] [id number] Jul, [facility] [address] [id number] [address] [place] [id number] 14 Jun, 2010 [facility] [address] [id number] [address] [place] [id number] Jun, [facility] [address] [id number] [address] [place] [id number] Apr, [facility] [address] [id number] [address] [place] [id number] Aug, [facility] [address] [id number] [address] [place] [id number] Jul, [facility] [address] [id number] [address] [place] [id number] Jul, [facility] [address] [id number] [address] [place] [id number] 13 Jul, 2009 [facility] [address] [id number] [address] [place] [address], [place] [address] 23 Jun, 2009 [facility] [address] [id number] [address] [place] [id number] 10 May, 2009 [facility] [address] [facility] [id number] [address] [place] [id number] 14 Dec, 2008 [facility] [address] [facility] [id number] [address] [place] [id number] 12 Nov, 2008 [facility] [address] [facility] [id number] [address] [place] [id number] 10 Oct, 2008 [facility] [address] [facility] [id number] [address] [place] [id number] Aug, [facility] [address] [facility] [id number] [address] [place] [id number] Aug, [facility] [address] [facility] [id number] [address] [place] [id number] 28 Jun, 2008 IMMUNIZATIONS No Known Immunizations [...] x 3 day s 04/2012 Hospitalization History [facility] [place]- Right wrist injury 03/29/2018
--- OUTSIDE RECORDS SUMMARY | 2020-04-09 00:04 | XMS REPORT ---
Author Author Kateryna Turner Doctor Organization [facility] Address Unknown Phone Unavailable Care Team Providers Care Retanned Leather Roller Name Role Phone Migration, Doctor Unavailable Unavailable PROBLEMS Type Condition ICD9-CM Code ACV39-OD Code Onset Dates Condition S tatus SNOMED Code Problem Irregular menses N92.6 Active 801 12138 Problem Migraine with aura and without status migrainosu s, not intractable G43.109 Active 3158796 Problem Uncontrolled type 2 diabetes mellitus with hyperglycemia E11.65 Active 853871837 Problem Morbid obesity due to excess calories E66.01 Active 857469033 Problem RLS (restless legs syndrome) G25.81 A ctive 63305848 Problem Morbid obesity E66.01 Active 15430 6002 ALLERGIES No Information ENCOUNTERS Encounter Location Date Diagnosis [facility] [address] [id number] [address] [place] [id number] 15 Feb, 2020 Encounter for screening labo ratory testing for COVID-19 virus Z11.59 [facility] [address] [place] [id number] [address] [place] [id number] 08 Feb, 2020 [facility] [address] [id number] [address] [place] [phone] January, [facility] [address] [id number] [address] [place] [address] January, BMI 50.0-59.9, adult Z68.43 and Vomiting, unspecified R11.10 [facility] [address] [id number] [address] [place] [address] January, [facility] [address] [id number] [address] [place] [phone] Dec, [facility] [address] [id number] [address] [place] [phone] Dec, [facility] [address] [id number] [address] [place] [id number] 23 Dec, 2019 Uncontrolled type 2 diabetes mellitus with hyperglycemia E11.65 [facility] [address] [id number] [address] [place] [id number] 07 Dec, 2019 [facility] [address] [id number] [address] [place] [id number] 06 Dec, 2019 [facility] [address] [id number] [address] [place] [id number] 03 Dec, 2019 [facility] [address] [id number] [address] [place] [address] 30 Nov, 2019 [facility] [address] [id number] [address] [place] [id number] 28 Nov, 2019 [facility] [address] [id number] [address] [place] [id number] Nov, [facility] [address] [id number] [address] [place] [address] Nov, RLS (restless legs syndrome) G25.81 [facility] [address] [id number] [address] [place] [id number] 15 Oct, 2019 [facility] [address] [id number] [address] [place] [id number] 09 Oct, 2019 Influenza J11.1 [facility] [address] [id number] [address] [place] [id number] 16 Sep, 2019 [facility] [address] [id number] [address] [place] [id number] 14 Sep, 2019 [facility] [address] [id number] [address] [place] [id number] 14 Sep, 2019 [facility] [address] [id number] [address] [place] [id number] 13 Sep, 2019 [facility] [address] [id number] [address] [place] [address] Sep, Pneumonia of left lower lobe due to infectious organism J18.9 and Migraine with aura and without status migrainosus, not intractable G43.109 [facility] [address] [id number] [address] [place] [address] Sep, [facility] [address] [id number] [address] [place] [id number] Sep, [facility] [address] [id number] [address] [place] [id number] Sep, [facility] [address] [id number] [address] [place] [phone] Sep, [facility] [address] [id number] [address] [place] [address] Sep, Pneumonia of left lower lobe due to infectious organism J18.9 and Migraine with aura and without status migrainosus, not intractable G43.109 [facility] [address] [id number] [address] [place] [address] Aug, Irregular menses N92.6 ; Wel l woman exam Z01.419 ; Pelvic cramping R10.2 and Left breast lump N63.20 [place] [address] [id number] [address] [place] [address] Aug, [place] [address] [id number] [address] [place] [address] Aug, Well woman exam Z01.419 ; Le ft breast lump N63.20 ; Irregular menses N92.6 ; Encounter for immunization Z23 ; Pelvic cramping R10.2 and Screening for cervical cancer Z12.4 [facility] [address] [id number] [address] [place] [id number] Aug, [facility] [address] [id number] [address] [place] [phone] Aug, [facility] [address] [id number] [address] [place] [address] Aug, [place] [id number] [id number] [address] [place] [phone] Jul, [facility] [id number] [place] [phone] Jun, [facility] [address] [id number] [address] [place] [phone] Jun, [facility] [address] [id number] [place] [address] Jun, [facility] [address] [id number] [address] [place] [address] Jun, BMI 50.0-59.9, adult Z68.43 [facility] [address] [id number] [address] [place] [phone] Jun, [facility] [address] [id number] [address] [place] [address] May, Acute non-recurrent sinusiti s, unspecified location J01.90 ; Diarrhea, unspecified R19.7 ; Vomiting, unspecified R11.10 and Morbid obesity E66.01 [facility] [address] [id number] [address] [place] [address] Apr, [facility] [address] [id number] [address] [place] [address] Apr, Anemia due to other cause, n ot classified D64.89 and D-dimer, elevated R79.89 [facility] [address] [id number] [address] [place] [phone] Apr, [facility] [address] [id number] [address] [place] [address] Apr, [facility] [address] [id number] [address] [place] [address] Mar, Anemia due to other cause, n ot classified D64.89 and D-dimer, elevated R79.89 [facility] [address] [id number] [address] [place] [address] Mar, Leg edema, right R60.0 ; Hig h risk medication use Z79.899 and Morbid obesity E66.01 [place] [address] [id number] [address] [place] [address] Mar, BMI 50.0-59.9, adult Z68.43 [place] [address] [id number] [place] [address] Mar, [place] [address] [id number] [address] [place] [address] January, Uncontrolled type 2 diabetes mellitus with hyperglycemia E11.65 ; RLS (restless legs syndrome) G25.81 and Morbid obesity E66.01 [place] [address] [id number] [address] [place] [address] Oct, Lipoma of right lower extrem ity D17.23 [place] [address] [id number] [address] [place] [address] Oct, Lipoma of right lower extrem ity D17.23 [place] [address] [id number] [address] [place] [address] Sep, [place] [address] [id number] [address] [place] [address] Sep, [place] [address] [id number] [address] [place] [address] Sep, [place] [address] [id number] [address] [place] [address] Sep, [place] [address] [id number] [address] [place] [address] Sep, [place] [address] [place] [id number] [address] [place] [address] Aug, Uncontrolled type 2 diabetes mellitus with hyperglycemia E11.65 ; Morbid obesity due to excess calories E66.01 ; Lipoma of torso D17.1 and BMI 50.0-59.9, adult Z68.43 [facility] [address] [id number] [address] [place] [address] Jun, Encounter for immunization Z 23 [facility] [address] [id number] [address] [place] [address] Jul, [facility] [address] [id number] [address] [place] [address] Jun, Encounter for immunization Z 23 [facility] [address] [id number] [address] [place] [address] 30 May, 2016 [facility] [address] [id number] [address] [place] [phone] Jun, Encounter for immunization Z 23 [facility] [address] [id number] [address] [place] [phone] 29 May, 2015 [facility] [address] [id number] [address] [place] [address] May, [facility] [address] [id number] [address] [place] [address] Apr, [facility] [address] [id number] [address] [place] [address] Feb, [facility] [address] [id number] [address] [place] [id number] Feb, [facility] [address] [id number] [address] [place] [phone] Feb, [facility] [address] [id number] [address] [place] [address] January, [facility] [address] [id number] [address] [place] [id number] January, [facility] [address] [id number] [address] [place] [phone] Dec, [facility] [address] [id number] [address] [place] [address] Dec, [facility] [address] [id number] [address] [place] [address], [place] [address] Nov, [facility] [address] [id number] [address] [place] [address], [place] [address] Nov, [facility] [address] [id number] [address] [place] [address], [place] [address] Nov, [facility] [address] [id number] [address] [place] [address], [place] [address] Nov, [facility] [address] [id number] [address] [place] [address], [place] [address] Nov, [facility] [address] [id number] [address] [place] [address], [place] [address] Nov, [facility] [address] [id number] [address] [place] [address], [place] [address] Nov, [facility] [address] [id number] [address] [place] [address], [place] [address] Oct, [facility] [address] [id number] [address] [place] [address], [place] [address] Oct, [facility] [address] [id number] [address] [place] [address], [place] [address] Oct, [facility] [address] [id number] [address] [place] [address], [place] [address] Oct, [facility] [address] [id number] [address] [place] [address], [place] [address] Oct, [facility] [address] [id number] [address] [place] [address], [place] [address] Sep, [facility] [address] [id number] [address] [place] [address], [place] [address] Sep, [facility] [address] [id number] [address] [place] [address], [place] [address] Sep, [facility] [address] [id number] [address] [place] [address], [place] [address] Sep, [facility] [address] [id number] [address] [place] [address], [place] [address] Sep, [facility] [address] [id number] [address] [place] [address], [place] [address] Sep, [facility] [address] [id number] [address] [place] [address], [place] [address] Sep, [facility] [address] [id number] [address] [place] [address], [place] [address] Sep, [facility] [address] [id number] [address] [place] [address], [place] [address] Sep, [facility] [address] [id number] [address] [place] [address], [place] [address] Sep, [facility] [address] [id number] [address] [place] [address], [place] [address] Aug, [facility] [address] [id number] [address] [place] [address], [place] [address] Aug, [facility] [address] [id number] [address] [place] [address], [place] [address] Aug, [facility] [address] [id number] [address] [place] [address], [place] [address] Aug, [facility] [address] [id number] [address] [place] [address], [place] [address] Aug, [facility] [address] [id number] [address] [place] [address], [place] [address] Aug, [facility] [address] [id number] [address] [place] [address], [place] [address] Aug, [facility] [address] [id number] [address] [place] [address], [place] [address] Aug, [facility] [address] [id number] [address] [place] [address], [place] [address] Aug, [facility] [address] [id number] [address] [place] [address], [place] [address] Aug, [facility] [address] [id number] [address] [place] [address], [place] [address] Aug, [facility] [address] [id number] [address] [place] [address], [place] [address] Aug, [facility] [address] [id number] [address] [place] [address], [place] [address] Aug, [facility] [address] [id number] [address] [place] [address], [place] [address] Aug, [facility] [address] [id number] [address] [place] [address], [place] [address] Aug, [facility] [address] [id number] [address] [place] [address], [place] [address] Aug, [facility] [address] [id number] [address] [place] [address], [place] [address] Aug, [facility] [address] [id number] [address] [place] [address], [place] [address] Aug, [facility] [address] [id number] [address] [place] [address], [place] [address] Aug, [facility] [address] [id number] [address] [place] [address], [place] [address] Aug, [facility] [address] [id number] [address] [place] [address], [place] [address] Aug, [facility] [address] [id number] [address] [place] [address], [place] [address] Aug, [facility] [address] [id number] [address] [place] [address], [place] [address] 05 Aug, 2014 [facility] [address] [id number] [address] [place] [address], [place] [address] 05 Aug, 2014 [facility] [address] [id number] [address] [place] [address], [place] [address] 07 Jul, 2014 [facility] [address] [id number] [address] [place] [address], [place] [address] 07 Jul, 2014 [facility] [address] [id number] [address] [place] [address], [place] [address] 27 Jun, 2014 [facility] [address] [id number] [address] [place] [address], [place] [address] 27 Jun, 2014 [facility] [address] [id number] [address] [place] [address] 17 Jun, 2014 [facility] [address] [id number] [address] [place] [address], [place] [address] 17 Jun, 2014 [facility] [address] [id number] [address] [place] [address] 15 Jun, 2014 [facility] [address] [id number] [address] [place] [address], [place] [address] 15 Jun, 2014 [facility] [address] [id number] [address] [place] [address] 14 Jun, 2014 [facility] [address] [id number] [address] [place] [address], [place] [address] 14 Jun, 2014 [facility] [address] [id number] [address] [place] [address] 13 Jun, 2014 [facility] [address] [id number] [address] [place] [address] 13 Jun, 2014 [facility] [address] [id number] [address] [place] [address] 13 Jun, 2014 [facility] [address] [id number] [address] [place] [address], [place] [address] 13 Jun, 2014 [facility] [address] [id number] [address] [place] [address] 06 Jun, 2014 [facility] [address] [id number] [address] [place] [address], [place] [address] 06 Jun, 2014 [facility] [address] [id number] [facility] [place] [address] May, 2013 [facility] [address] [id number] [facility] [place] [address] May, 2013 [facility] [address] [id number] [facility] [place] [address] May, 2013 [facility] [address] [id number] [address] [place] [address], [place] [address] May, 2013 [facility] [address] [id number] [address] [place] [address], [place] [address] May, 2013 [facility] [address] [id number] [address] [place] [address], [place] [address] May, 2013 [facility] [address] [id number] [address] [place] [address], [place] [address] May, 2013 [facility] [address] [id number] [address] [place] [address], [place] [address] May, 2013 [facility] [address] [id number] [address] [place] [address], [place] [address] Apr, [facility] [address] [id number] [address] [place] [address], [place] [address] Apr, [facility] [address] [id number] [address] [place] [address], [place] [address] Apr, [facility] [address] [id number] [address] [place] [address], [place] [address] Apr, [facility] [address] [id number] [address] [place] [address], [place] [address] Apr, [facility] [address] [id number] [address] [place] [address], [place] [address] Apr, [facility] [address] [id number] [address] [place] [address], [place] [address] Apr, [facility] [address] [id number] [address] [place] [address], [place] [address] Apr, [facility] [address] [id number] [address] [place] [address], [place] [address] Apr, [facility] [address] [id number] [address] [place] [address], [place] [address] Mar, [facility] [address] [id number] [address] [place] [address], [place] [address] Mar, [facility] [address] [id number] [address] [place] [address], [place] [address] Mar, [facility] [address] [id number] [address] [place] [address], [place] [address] Feb, [facility] [address] [id number] [address] [place] [address], [place] [address] Feb, [facility] [address] [id number] [address] [place] [address], [place] [address] Feb, [facility] [address] [id number] [address] [place] [address], [place] [address] Feb, [facility] [address] [id number] [address] [place] [address], [place] [address] Feb, [facility] [address] [id number] [address] [place] [address], [place] [address] Feb, [facility] [address] [id number] [address] [place] [address], [place] [address] Feb, [facility] [address] [id number] [address] [place] [address], [place] [address] Feb, [facility] [address] [id number] [address] [place] [address], [place] [address] Feb, [facility] [address] [id number] [address] [place] [address], [place] [address] Feb, [facility] [address] [id number] [address] [place] [address], [place] [address] 10 Feb, 2014 [facility] [address] [id number] [address] [place] [address], [place] [address] Feb, [facility] [address] [id number] [facility] [address] Feb, [facility] [address] [id number] [address] [place] [address], [place] [address] Feb, [facility] [address] [id number] [address] [place] [address], [place] [address] Feb, [facility] [address] [id number] [address] [place] [address], [place] [address] Feb, [facility] [address] [id number] [address] [place] [address], [place] [address] January, [facility] [address] [id number] [address] [place] [address], [place] [address] January, [facility] [address] [id number] [address] [place] [address], [place] [address] January, [facility] [address] [id number] [address] [place] [address], [place] [address] January, [facility] [address] [id number] [address] [place] [address], [place] [address] January, [facility] [address] [id number] [address] [place] [address], [place] [address] January, [facility] [address] [id number] [address] [place] [address], [place] [address] January, [facility] [address] [id number] [address] [place] [address], [place] [address] January, [facility] [address] [id number] [address] [place] [address], [place] [address] January, [facility] [address] [id number] [address] [place] [address], [place] [address] January, [facility] [address] [id number] [address] [place] [address], [place] [address] January, [facility] [address] [id number] [facility] [address] January, [facility] [address] [id number] [facility] [address] January, [facility] [address] [id number] [facility] [place] [address] January, [facility] [address] [id number] [address] [place] [address], [place] [address] January, [facility] [address] [id number] [address] [place] [address], [place] [address] January, [facility] [address] [id number] [address] [place] [address], [place] [address] January, [facility] [address] [id number] [address] [place] [address], [place] [address] January, [facility] [address] [id number] [address] [place] [address], [place] [address] January, [facility] [address] [id number] [address] [place] [address], [place] [address] January, [facility] [address] [id number] [address] [place] [address], [place] [address] January, [facility] [address] [id number] [address] [place] [address], [place] [address] January, [facility] [address] [id number] [address] [place] [address], [place] [address] January, [facility] [address] [id number] [address] [place] [address], [place] [address] January, [facility] [address] [id number] [address] [place] [address], [place] [address] January, [facility] [address] [id number] [address] [place] [address], [place] [address] January, [facility] [address] [id number] [address] [place] [address], [place] [address] Dec, [facility] [address] [id number] [facility] [place] [address] Dec, [facility] [address] [id number] [facility] [place] [address] Dec, [facility] [address] [id number] [address] [place] [address], [place] [address] Dec, [facility] [address] [id number] [address] [place] [address], [place] [address] Dec, [facility] [address] [id number] [address] [place] [address], [place] [address] Dec, [facility] [address] [id number] [address] [place] [address], [place] [address] Dec, [facility] [address] [id number] [address] [place] [address], [place] [address] Dec, [facility] [address] [id number] [address] [place] [address], [place] [address] Dec, [facility] [address] [id number] [address] [place] [address], [place] [address] Dec, [facility] [address] [id number] [address] [place] [address], [place] [address] Dec, [facility] [address] [id number] [address] [place] [address], [place] [address] Dec, [facility] [address] [id number] [address] [place] [address], [place] [address] Dec, [facility] [address] [id number] [address] [place] [address], [place] [address] Dec, [facility] [address] [id number] [address] [place] [address], [place] [address] Dec, [facility] [address] [id number] [address] [place] [address], [place] [address] Dec, [facility] [address] [id number] [facility] [place] [address] 08 Dec, 2013 [facility] [address] [id number] [address] [place] [address], [place] [address] Dec, [facility] [address] [id number] [address] [place] [address], [place] [address] Dec, [facility] [address] [id number] [address] [place] [address], [place] [address] Dec, [facility] [address] [id number] [address] [place] [address], [place] [address] Dec, [facility] [address] [id number] [address] [place] [address], [place] [address] Dec, [facility] [address] [id number] [address] [place] [address], [place] [address] Nov, [facility] [address] [id number] [address] [place] [address], [place] [address] Nov, [facility] [address] [id number] [address] [place] [address], [place] [address] Nov, [facility] [address] [id number] [address] [place] [address], [place] [address] Nov, [facility] [address] [id number] [address] [place] [address], [place] [address] Nov, [facility] [address] [id number] [address] [place] [address], [place] [address] Nov, [facility] [address] [id number] [address] [place] [address], [place] [address] Nov, [facility] [address] [id number] [address] [place] [address], [place] [address] Nov, [facility] [address] [id number] [address] [place] [address], [place] [address] Nov, [facility] [address] [id number] [address] [place] [address], [place] [address] Nov, [facility] [address] [id number] [facility] [place] [address] 18 Nov, 2013 [facility] [address] [id number] [address] [place] [address], [place] [address] 18 Nov, 2013 [facility] [address] [id number] [address] [place] [address], [place] [address] 14 Nov, 2013 [facility] [address] [id number] [address] [place] [address], [place] [address] 14 Nov, 2013 [facility] [address] [id number] [address] [place] [address], [place] [address] Nov, [facility] [address] [id number] [address] [place] [address], [place] [address] Nov, [facility] [address] [id number] [address] [place] [address], [place] [address] Oct, [facility] [address] [id number] [address] [place] [address], [place] [address] Oct, [facility] [address] [id number] [address] [place] [address], [place] [address] Oct, [facility] [address] [id number] [address] [place] [address], [place] [address] Oct, [facility] [address] [id number] [address] [place] [address], [place] [address] Oct, [facility] [address] [id number] [address] [place] [address], [place] [address] Oct, [facility] [address] [id number] [address] [place] [address], [place] [address] Oct, [facility] [address] [id number] [address] [place] [address], [place] [address] Oct, [facility] [address] [id number] [address] [place] [address], [place] [address] Oct, [facility] [address] [id number] [facility] [place] [address] 17 Oct, 2013 [facility] [address] [id number] [address] [place] [address], [place] [address] 14 Oct, 2013 [facility] [address] [id number] [address] [place] [address], [place] [address] 14 Oct, 2013 [facility] [address] [id number] [address] [place] [address], [place] [address] 04 Oct, 2013 [facility] [address] [id number] [address] [place] [address], [place] [address] 04 Oct, 2013 [facility] [address] [id number] [address] [place] [address], [place] [address] 03 Oct, 2013 [facility] [address] [id number] [address] [place] [address], [place] [address] Sep, [facility] [address] [id number] [address] [place] [address], [place] [address] Sep, [facility] [address] [id number] [address] [place] [address], [place] [address] Sep, [facility] [address] [id number] [address] [place] [address], [place] [address] Sep, [facility] [address] [id number] [address] [place] [address], [place] [address] Sep, [facility] [address] [id number] [address] [place] [address], [place] [address] Sep, [facility] [address] [id number] [address] [place] [address], [place] [address] Sep, [facility] [address] [id number] [address] [place] [address], [place] [address] Sep, [facility] [address] [id number] [address] [place] [address], [place] [address] Sep, [facility] [address] [id number] [address] [place] [address], [place] [address] Sep, [facility] [address] [id number] [address] [place] [address], [place] [address] Sep, [facility] [address] [id number] [address] [place] [address], [place] [address] Sep, [facility] [address] [id number] [address] [place] [address], [place] [address] Sep, [facility] [address] [id number] [address] [place] [address], [place] [address] Aug, [facility] [address] [id number] [address] [place] [address], [place] [address] Aug, [facility] [address] [id number] [address] [place] [address], [place] [address] Aug, [facility] [address] [id number] [address] [place] [address], [place] [address] Aug, [facility] [address] [id number] [address] [place] [address], [place] [address] Aug, [facility] [address] [id number] [address] [place] [address], [place] [address] 17 Aug, 2013 [facility] [address] [id number] [address] [place] [address], [place] [address] 16 Aug, 2013 [facility] [address] [id number] [address] [place] [address], [place] [address] 16 Aug, 2013 [facility] [address] [id number] [address] [place] [address], [place] [address] 12 Aug, 2013 [facility] [address] [id number] [address] [place] [address], [place] [address] Aug, [facility] [address] [id number] [address] [place] [address], [place] [address] 10 Aug, 2013 [facility] [address] [id number] [address] [place] [address], [place] [address] 10 Aug, 2013 [facility] [address] [id number] [address] [place] [address], [place] [address] 02 Aug, 2013 [facility] [address] [id number] [address] [place] [address], [place] [address] 02 Aug, 2013 [facility] [address] [id number] [address] [place] [address], [place] [address] 19 Jul, 2013 [facility] [address] [id number] [address] [place] [address], [place] [address] 19 Jul, 2013 [facility] [address] [id number] [address] [place] [address], [place] [address] 18 Jul, 2013 [facility] [address] [id number] [address] [place] [address], [place] [address] 18 Jul, 2013 [facility] [address] [id number] [address] [place] [address], [place] [address] 14 Jul, 2013 [facility] [address] [id number] [address] [place] [address], [place] [address] 14 Jul, 2013 [facility] [address] [id number] [address] [place] [address], [place] [address] 14 Jul, 2013 [facility] [address] [id number] [address] [place] [address], [place] [address] 14 Jul, 2013 [facility] [address] [id number] [address] [place] [address], [place] [address] 07 Jul, 2013 [facility] [address] [id number] [address] [place] [address], [place] [address] 07 Jul, 2013 [facility] [address] [id number] [address] [place] [address], [place] [address] 06 Jul, 2013 [facility] [address] [id number] [address] [place] [address], [place] [address] 06 Jul, 2013 [facility] [address] [id number] [address] [place] [address], [place] [address] 05 Jul, 2013 [facility] [address] [id number] [address] [place] [address] 05 Jul, 2013 [facility] [address] [id number] [address] [place] [address], [place] [address] 23 Jun, 2013 [facility] [address] [id number] [address] [place] [address], [place] [address] 23 Jun, 2013 [facility] [address] [id number] [address] [place] [address], [place] [address] 15 Jun, 2013 [facility] [address] [id number] [address] [place] [address], [place] [address] 15 Jun, 2013 [facility] [address] [id number] [address] [place] [address], [place] [address] 14 Jun, 2013 [facility] [address] [id number] [address] [place] [address], [place] [address] 24 May, 2012 [facility] [address] [id number] [address] [place] [address], [place] [address] 20 May, 2012 [facility] [address] [id number] [address] [place] [address], [place] [address] 20 May, 2012 [facility] [address] [id number] [address] [place] [address], [place] [address] 20 May, 2012 [facility] [address] [id number] [address] [place] [address], [place] [address] 19 May, 2012 [facility] [address] [id number] [address] [place] [address], [place] [address] 13 May, 2012 [facility] [address] [id number] [address] [place] [address], [place] [address] 12 May, 2012 [facility] [address] [id number] [address] [place] [address], [place] [address] 12 May, 2012 [facility] [address] [id number] [address] [place] [address], [place] [address] 11 May, 2012 [facility] [address] [id number] [address] [place] [address], [place] [address] 11 May, 2012 [facility] [address] [id number] [address] [place] [address], [place] [address] May, [facility] [address] [id number] [address] [place] [address], [place] [address] May, 2012 [facility] [address] [id number] [address] [place] [address], [place] [address] 05 May, 2013 [facility] [address] [id number] [address] [place] [address], [place] [address] May, [facility] [address] [id number] [address] [place] [address], [place] [address] May, [facility] [address] [id number] [address] [place] [address], [place] [address] Apr, [facility] [address] [id number] [address] [place] [address], [place] [address] Apr, [facility] [address] [id number] [address] [place] [address], [place] [address] Apr, [facility] [address] [id number] [address] [place] [address], [place] [address] Apr, [facility] [address] [id number] [address] [place] [address], [place] [address] Apr, [facility] [address] [id number] [address] [place] [address], [place] [address] Apr, [facility] [address] [id number] [address] [place] [address], [place] [address] Apr, [facility] [address] [id number] [address] [place] [address], [place] [address] Apr, [facility] [address] [id number] [address] [place] [address], [place] [address] Apr, [facility] [address] [id number] [address] [place] [address], [place] [address] Mar, [facility] [address] [id number] [address] [place] [address], [place] [address] Mar, [facility] [address] [id number] [address] [place] [address], [place] [address] Mar, [facility] [address] [id number] [address] [place] [address], [place] [address] Mar, [facility] [address] [id number] [address] [place] [address], [place] [address] Mar, [facility] [address] [id number] [address] [place] [address], [place] [address] Mar, [facility] [address] [id number] [address] [place] [address], [place] [address] Mar, [facility] [address] [id number] [address] [place] [address], [place] [address] Mar, [facility] [address] [id number] [address] [place] [address], [place] [address] Mar, [facility] [address] [id number] [address] [place] [address], [place] [address] Mar, [facility] [address] [id number] [address] [place] [address], [place] [address] Mar, [facility] [address] [id number] [address] [place] [address], [place] [address] Feb, [facility] [address] [id number] [address] [place] [address], [place] [address] Feb, [facility] [address] [id number] [address] [place] [address], [place] [address] Feb, [facility] [address] [id number] [address] [place] [address], [place] [address] Feb, [facility] [address] [id number] [address] [place] [address], [place] [address] Feb, [facility] [address] [id number] [address] [place] [address], [place] [address] Feb, [facility] [address] [id number] [address] [place] [address], [place] [address] Feb, [facility] [address] [id number] [address] [place] [address], [place] [address] Feb, [facility] [address] [id number] [address] [place] [address], [place] [address] Feb, [facility] [address] [id number] [address] [place] [address], [place] [address] January, [facility] [address] [id number] [address] [place] [address], [place] [address] January, [facility] [address] [id number] [address] [place] [address], [place] [address] January, [facility] [address] [id number] [address] [place] [address], [place] [address] January, [facility] [address] [id number] [address] [place] [address], [place] [address] January, [facility] [address] [id number] [address] [place] [address], [place] [address] January, [facility] [address] [id number] [address] [place] [address], [place] [address] January, [facility] [address] [id number] [address] [place] [address], [place] [address] January, [facility] [address] [id number] [address] [place] [address], [place] [address] January, [facility] [address] [id number] [address] [place] [address], [place] [address] January, [facility] [address] [id number] [address] [place] [address], [place] [address] January, [facility] [address] [id number] [address] [place] [address], [place] [address] January, [facility] [address] [id number] [address] [place] [address], [place] [address] January, [facility] [address] [id number] [address] [place] [address], [place] [address] January, [facility] [address] [id number] [address] [place] [address], [place] [address] January, [facility] [address] [id number] [address] [place] [address], [place] [address] January, [facility] [address] [id number] [address] [place] [address], [place] [address] January, [facility] [address] [id number] [address] [place] [address], [place] [address] January, [facility] [address] [id number] [address] [place] [address], [place] [address] January, [facility] [address] [id number] [address] [place] [address], [place] [address] January, [facility] [address] [id number] [address] [place] [address], [place] [address] January, [facility] [address] [id number] [address] [place] [address], [place] [address] January, [facility] [address] [id number] [address] [place] [address], [place] [address] January, [facility] [address] [id number] [address] [place] [address], [place] [address] Dec, [facility] [address] [id number] [address] [place] [address], [place] [address] Dec, [facility] [address] [id number] [address] [place] [address], [place] [address] 17 Dec, 2012 [facility] [address] [id number] [address] [place] [address], [place] [address] 16 Dec, 2012 [facility] [address] [id number] [address] [place] [address], [place] [address] Dec, [facility] [address] [id number] [address] [place] [address], [place] [address] Nov, [facility] [address] [id number] [address] [place] [address], [place] [address] Oct, [facility] [address] [id number] [address] [place] [address], [place] [address] Oct, [facility] [address] [id number] [address] [place] [address], [place] [address] Oct, [facility] [address] [id number] [address] [place] [address], [place] [address] Oct, [facility] [address] [id number] [address] [place] [address], [place] [address] Oct, [facility] [address] [id number] [address] [place] [address], [place] [address] Sep, [facility] [address] [id number] [address] [place] [address], [place] [address] Sep, [facility] [address] [id number] [address] [place] [address], [place] [address] Sep, [facility] [address] [id number] [address] [place] [address], [place] [address] Aug, [facility] [address] [id number] [address] [place] [address], [place] [address] Aug, [facility] [address] [id number] [address] [place] [address], [place] [address] Aug, [facility] [address] [id number] [address] [place] [address], [place] [address] Aug, [facility] [address] [id number] [address] [place] [address], [place] [address] Jul, [facility] [address] [id number] [address] [place] [address], [place] [address] Jul, [facility] [address] [id number] [address] [place] [address], [place] [address] Jul, [facility] [address] [id number] [address] [place] [address], [place] [address] Jul, [facility] [address] [id number] [address] [place] [address], [place] [address] Jul, [facility] [facility] [address] [id number] [address] [place] [address], [place] [address] Jul, [facility] [address] [id number] [address] [place] [address], [place] [address] Jun, [facility] [address] [id number] [address] [place] [address], [place] [address] Jun, [facility] [address] [id number] [address] [place] [address], [place] [address] Jun, [facility] [address] [id number] [address] [place] [address], [place] [address] Jun, [facility] [address] [id number] [address] [place] [address], [place] [address] Jun, [facility] [address] [id number] [address] [place] [address], [place] [address] Jun, [facility] [address] [id number] [address] [place] [address], [place] [address] Jun, [facility] [address] [id number] [address] [place] [address], [place] [address] Jun, [facility] [address] [id number] [address] [place] [address] Jun, [facility] [address] [id number] [address] [place] [id number] 02 Jun, 2012 [facility] [address] [id number] [address] [place] [address], [place] [address] 17 May, 2012 [facility] [address] [id number] [address] [place] [address], [place] [address] 08 May, 2012 [facility] [address] [id number] [address] [place] [address], [place] [address] 06 Sep2011 [facility] [address] [id number] [address] [place] [address], [place] [address] Apr, [facility] [address] [id number] [address] [place] [address], [place] [address] Apr, [facility] [address] [id number] [address] [place] [address], [place] [address] Apr, [facility] [address] [id number] [address] [place] [address], [place] [address] Apr, [facility] [address] [id number] [address] [place] [address], [place] [address] Apr, [facility] [address] [id number] [address] [place] [address], [place] [address] Apr, [facility] [address] [id number] [address] [place] [address], [place] [address] Apr, [facility] [address] [id number] [address] [place] [address], [place] [address] Apr, [facility] [address] [id number] [address] [place] [address], [place] [address] Apr, [facility] [address] [id number] [address] [place] [address], [place] [address] Mar, [facility] [address] [id number] [address] [place] [address], [place] [address] Mar, [facility] [address] [id number] [address] [place] [address], [place] [address] Mar, [facility] [address] [id number] [address] [place] [address], [place] [address] Mar, [facility] [address] [id number] [address] [place] [address], [place] [address] Feb, [facility] [address] [id number] [address] [place] [address], [place] [address] Feb, [facility] [address] [id number] [address] [place] [address], [place] [address] Feb, [facility] [address] [id number] [address] [place] [address], [place] [address] January, [facility] [address] [id number] [address] [place] [address], [place] [address] January, [facility] [address] [id number] [address] [place] [address], [place] [address] January, [facility] [address] [id number] [address] [place] [address], [place] [address] January, [facility] [address] [id number] [address] [place] [address], [place] [address] January, [facility] [address] [id number] [address] [place] [address], [place] [address] Dec, [facility] [address] [id number] [address] [place] [address], [place] [address] Dec, [facility] [address] [id number] [address] [place] [address], [place] [address] Dec, [facility] [address] [id number] [address] [place] [address], [place] [address] Oct, [facility] [address] [id number] [address] [place] [address], [place] [address] Oct, [facility] [address] [id number] [address] [place] [address], [place] [address] Oct, [facility] [address] [id number] [address] [place] [address], [place] [address] Sep, [facility] [address] [id number] [address] [place] [address], [place] [address] Sep, [facility] [address] [id number] [address] [place] [address], [place] [address] Aug, [facility] [address] [id number] [address] [place] [address], [place] [address] Jul, [facility] [address] [id number] [address] [place] [address], [place] [address] 08 Jul, 2011 [facility] [address] [id number] [address] [place] [address], [place] [address] 12 Mar, 2011 [facility] [address] [id number] [address] [place] [address], [place] [address] 10 Aug, 2010 [facility] [address] [id number] [address] [place] [address], [place] [address] 10 Jul, 2010 [facility] [address] [id number] [address] [place] [address], [place] [address] Jul, [facility] [address] [id number] [address] [place] [address], [place] [address] Jul, [facility] [address] [id number] [address] [place] [address], [place] [address] Jul, [facility] [address] [id number] [address] [place] [address], [place] [address] 14 Jun, 2010 [facility] [address] [id number] [address] [place] [address], [place] [address] Jun, [facility] [address] [id number] [address] [place] [address], [place] [address] Apr, [facility] [address] [id number] [address] [place] [address], [place] [address] Aug, [facility] [address] [id number] [address] [place] [address], [place] [address] 17 Jul, 2009 [facility] [address] [id number] [address] [place] [address], [place] [address] 17 Jul, 2009 [facility] [address] [id number] [address] [place] [address], [place] [address] 13 Jul, 2009 [facility] [address] [id number] [address] [place] [address], [place] [address] 23 Jun, 2009 [facility] [address] [id number] [address] [place] [id number] 10 May, 2009 [facility] [address] [id number] [address] [place] [id number] Dec, [facility] [address] [id number] [address] [place] [id number] Nov, [facility] [address] [id number] [address] [place] [phone] Oct, [facility] [address] [id number] [address] [place] [address] Aug, [facility] [address] [id number] [address] [place] [address] Aug, [facility] [address] [id number] [address] [place] [phone] Jun, IMMUNIZATIONS No Known Immunizations SOCIAL HISTORY Never Assessed REASON FOR VISIT PLAN OF CARE VITAL SIGNS Height 66 in 2013-08-05 Weight 306.7 lbs 2013-08-05 Temperature 98.7 degrees Fahrenheit 2013-08-05 Heart Rate 84 bpm 2013-08-05 Respiratory Rate 24 2013-08-05 Blood pressure systolic 122 mmHg 2013-08-05 Blood pressure diastolic 80 mmHg 2013-08-05 MEDICATIONS Unknown Medications RESULTS No Results PROCEDURES Procedure Date Ordered Result Body Site ADMN FLU VAC NO FEE SCHED SAME DAY Aug 05, 2013 MEASURE BLOOD OXYGEN LEVEL Aug 05, 2013 GLYCATED HEMOGLOBIN TEST Aug 05, 2013 INSTRUCTIONS MEDICATIONS ADMINISTERED No Known Medications [...] x 3 day s 04/2012 Hospitalization History [facility] [place]- Right wrist injury 03/29/2018
--- OUTSIDE RECORDS SUMMARY | 2020-04-09 00:05 | XMS REPORT ---
Author Author Kateryna Turner Doctor Organization [facility] Address Unknown Phone Unavailable Care Team Providers Care Stringer Up Soldering Machine Name Role Phone Migration, Doctor Unavailable Unavailable PROBLEMS Type Condition ICD9-CM Code NOO68-BW Code Onset Dates Condition S tatus SNOMED Code Problem Irregular menses N92.6 Active 801 98174 Problem Migraine with aura and without status migrainosu s, not intractable G43.109 Active 9842239 Problem Uncontrolled type 2 diabetes mellitus with hyperglycemia E11.65 Active 579226138 Problem Morbid obesity due to excess calories E66.01 Active 828001654 Problem RLS (restless legs syndrome) G25.81 A ctive 81268421 Problem Morbid obesity E66.01 Active 39172 6002 ALLERGIES No Information ENCOUNTERS Encounter Location Date Diagnosis [facility] [address] [facility] [id number] [address] [place] [id number] 15 Feb, 2020 Encounter for screening labo ratory testing for COVID-19 virus Z11.59 [facility] [address] [place] [id number] [address] [place] [id number] 08 Feb, 2020 [facility] [address] [place] [id number] [address] [place] [address] January, [facility] [address] [place] [id number] [address] [place] [address] January, BMI 50.0-59.9, adult Z68.43 and Vomiting, unspecified R11.10 [facility] [address] [facility] [id number] [address] [place] [id number] January, [facility] [address] [place] [id number] [address] [place] [address] Dec, [facility] [address] [facility] [id number] [address] [place] [phone] Dec, [facility] [address] [place] [id number] [address] [place] [id number] 23 Dec, 2019 Uncontrolled type 2 diabetes mellitus with hyperglycemia E11.65 [facility] [address] [id number] [address] [place] [id number] 07 Dec, 2019 [facility] [address] [id number] [address] [place] [id number] 06 Dec, 2019 [facility] [address] [id number] [address] [place] [id number] 03 Dec, 2019 [facility] [address] [id number] [address] [place] [id number] 30 Nov, 2019 [facility] [address] [id number] [address] [place] [id number] 28 Nov, 2019 [facility] [address] [id number] [address] [place] [id number] Nov, [facility] [address] [facility] [id number] [address] [place] [phone] Nov, RLS (restless legs syndrome) G25.81 [facility] [address] [id number] [address] [place] [id number] 15 Oct, 2019 [facility] [address] [id number] [address] [place] [id number] 09 Oct, 2019 Influenza J11.1 [facility] [address] [id number] [address] [place] [id number] 16 Sep, 2019 [facility] [address] [id number] [address] [place] [id number] 14 Sep, 2019 [facility] [address] [id number] [address] [place] [id number] 14 Sep, 2019 [facility] [address] [id number] [address] [place] [id number] 13 Sep, 2019 [facility] [address] [id number] [address] [place] [address] Sep, Pneumonia of left lower lobe due to infectious organism J18.9 and Migraine with aura and without status migrainosus, not intractable G43.109 [facility] [address] [id number] [address] [place] [phone] Sep, [facility] [address] [id number] [address] [place] [id number] Sep, [facility] [address] [id number] [address] [place] [phone] Sep, [facility] [address] [id number] [address] [place] [id number] Sep, [facility] [address] [id number] [address] [place] [address] Sep, Pneumonia of left lower lobe due to infectious organism J18.9 and Migraine with aura and without status migrainosus, not intractable G43.109 [facility] [address] [id number] [address] [place] [address] Aug, Irregular menses N92.6 ; Wel l woman exam Z01.419 ; Pelvic cramping R10.2 and Left breast lump N63.20 [place] [address] [id number] [address] [place] [address] Aug, [place] [address] [id number] [address] [place] [address] Aug, Well woman exam Z01.419 ; Le ft breast lump N63.20 ; Irregular menses N92.6 ; Encounter for immunization Z23 ; Pelvic cramping R10.2 and Screening for cervical cancer Z12.4 [facility] [address] [id number] [address] [place] [address] Aug, [facility] [address] [id number] [address] [place] [phone] Aug, [facility] [address] [id number] [address] [place] [address] Aug, [place] [id number] [facility] [id number] [address] [place] [address] Jul, [facility] [address] [facility] [id number] [place] [phone] Jun, [facility] [address] [facility] [id number] [address] [place] [address] Jun, [facility] [address] [place] [id number] [place] [address] Jun, [facility] [address] [facility] [id number] [address] [place] [address] Jun, BMI 50.0-59.9, adult Z68.43 [facility] [address] [place] [id number] [address] [place] [id number] Jun, [facility] [address] [place] [id number] [address] [place] [address] May, Acute non-recurrent sinusiti s, unspecified location J01.90 ; Diarrhea, unspecified R19.7 ; Vomiting, unspecified R11.10 and Morbid obesity E66.01 [facility] [address] [place] [id number] [address] [place] [address] Apr, [facility] [address] [place] [id number] [address] [place] [address] Apr, Anemia due to other cause, n ot classified D64.89 and D-dimer, elevated R79.89 [facility] [address] [place] [id number] [address] [place] [address] Apr, [facility] [address] [facility] [id number] [address] [place] [phone] Apr, [facility] [address] [place] [id number] [address] [place] [address] Mar, Anemia due to other cause, n ot classified D64.89 and D-dimer, elevated R79.89 [facility] [address] [place] [id number] [address] [place] [address] Mar, Leg edema, right R60.0 ; Hig h risk medication use Z79.899 and Morbid obesity E66.01 [place] [address] [place] [id number] [address] [place] [address] Mar, BMI 50.0-59.9, adult Z68.43 [place] [address] [place] [id number] [place] [address] Mar, [place] [address] [place] [id number] [address] [place] [address] January, Uncontrolled type 2 diabetes mellitus with hyperglycemia E11.65 ; RLS (restless legs syndrome) G25.81 and Morbid obesity E66.01 [place] [address] [place] [id number] [address] [place] [address] Oct, Lipoma of right lower extrem ity D17.23 [place] [address] [place] [id number] [address] [place] [address] Oct, Lipoma of right lower extrem ity D17.23 [place] [address] [place] [id number] [address] [place] [address] Sep, [place] [address] [place] [id number] [address] [place] [address] Sep, [place] [address] [place] [id number] [address] [place] [address] Sep, [place] [address] [place] [id number] [address] [place] [address] Sep, [place] [address] [facility] [id number] [address] [place] [address] Sep, [place] [address] [place] [id number] [address] [place] [address] Aug, Uncontrolled type 2 diabetes mellitus with hyperglycemia E11.65 ; Morbid obesity due to excess calories E66.01 ; Lipoma of torso D17.1 and BMI 50.0-59.9, adult Z68.43 [facility] [address] [id number] [address] [place] [address] Jun, Encounter for immunization Z 23 [facility] [address] [id number] [address] [place] [id number] Jul, [facility] [address] [id number] [address] [place] [phone] Jun, Encounter for immunization Z 23 [facility] [address] [id number] [address] [place] [id number] 30 May, 2016 [facility] [address] [id number] [address] [place] [address] Jun, Encounter for immunization Z 23 [facility] [address] [id number] [address] [place] [address] 29 May, 2015 [facility] [address] [id number] [address] [place] [address] May, [facility] [address] [id number] [address] [place] [address] Apr, [facility] [address] [id number] [address] [place] [address] Feb, [facility] [address] [id number] [address] [place] [phone] Feb, [facility] [address] [id number] [address] [place] [address] Feb, [facility] [address] [id number] [address] [place] [address] January, [facility] [address] [id number] [address] [place] [address] January, [facility] [address] [id number] [address] [place] [address] Dec, [facility] [address] [id number] [address] [place] [address] Dec, [facility] [address] [id number] [address] [place] [address], [place] [address] Nov, [facility] [address] [id number] [address] [place] [address], [place] [address] Nov, [facility] [address] [id number] [address] [place] [address], [place] [address] Nov, [facility] [address] [id number] [address] [place] [address], [place] [address] Nov, [facility] [address] [id number] [address] [place] [address], [place] [address] Nov, [facility] [address] [id number] [address] [place] [address], [place] [address] Nov, [facility] [address] [id number] [address] [place] [address], [place] [address] Nov, [facility] [address] [id number] [address] [place] [address], [place] [address] Oct, [facility] [address] [id number] [address] [place] [address], [place] [address] Oct, [facility] [address] [id number] [address] [place] [address], [place] [address] Oct, [facility] [address] [id number] [address] [place] [address], [place] [address] Oct, [facility] [address] [id number] [address] [place] [address], [place] [address] Oct, [facility] [address] [id number] [address] [place] [address], [place] [address] Sep, [facility] [address] [id number] [address] [place] [address], [place] [address] Sep, [facility] [address] [id number] [address] [place] [address], [place] [address] Sep, [facility] [address] [id number] [address] [place] [address], [place] [address] Sep, [facility] [address] [id number] [address] [place] [address], [place] [address] Sep, [facility] [address] [id number] [address] [place] [address], [place] [address] Sep, [facility] [address] [id number] [address] [place] [address], [place] [address] Sep, [facility] [address] [id number] [address] [place] [address], [place] [address] Sep, [facility] [address] [id number] [address] [place] [address], [place] [address] Sep, [facility] [address] [id number] [address] [place] [address], [place] [address] Sep, [facility] [address] [id number] [address] [place] [address], [place] [address] Aug, [facility] [address] [id number] [address] [place] [address], [place] [address] Aug, [facility] [address] [id number] [address] [place] [address], [place] [address] Aug, [facility] [address] [id number] [address] [place] [address], [place] [address] Aug, [facility] [address] [id number] [address] [place] [address], [place] [address] Aug, [facility] [address] [id number] [address] [place] [address], [place] [address] Aug, [facility] [address] [id number] [address] [place] [address], [place] [address] Aug, [facility] [address] [id number] [address] [place] [address], [place] [address] Aug, [facility] [address] [id number] [address] [place] [address], [place] [address] Aug, [facility] [address] [id number] [address] [place] [address], [place] [address] Aug, [facility] [address] [id number] [address] [place] [address], [place] [address] Aug, [facility] [address] [id number] [address] [place] [address], [place] [address] Aug, [facility] [address] [id number] [address] [place] [address], [place] [address] Aug, [facility] [address] [id number] [address] [place] [address], [place] [address] Aug, [facility] [address] [id number] [address] [place] [address], [place] [address] Aug, [facility] [address] [id number] [address] [place] [address], [place] [address] Aug, [facility] [address] [id number] [address] [place] [address], [place] [id number] Aug, [facility] [address] [id number] [address] [place] [address], [place] [address] Aug, [facility] [address] [id number] [address] [place] [address], [place] [address] Aug, [facility] [address] [id number] [address] [place] [address], [place] [address] Aug, [facility] [address] [id number] [address] [place] [address], [place] [address] Aug, [facility] [address] [id number] [address] [place] [address], [place] [address] Aug, [facility] [address] [id number] [address] [place] [address], [place] [id number] 05 Aug, 2014 [facility] [address] [id number] [address] [place] [address], [place] [address] 05 Aug, 2014 [facility] [address] [id number] [address] [place] [address], [place] [id number] 07 Jul, 2014 [facility] [address] [id number] [address] [place] [address], [place] [address] 07 Jul, 2014 [facility] [address] [id number] [address] [place] [address], [place] [address] 27 Jun, 2014 [facility] [address] [id number] [address] [place] [address], [place] [address] 27 Jun, 2014 [facility] [address] [id number] [address] [place] [address] 17 Jun, 2014 [facility] [address] [id number] [address] [place] [address], [place] [address] 17 Jun, 2014 [facility] [address] [id number] [address] [place] [id number] 15 Jun, 2014 [facility] [address] [id number] [address] [place] [address], [place] [address] 15 Jun, 2014 [facility] [address] [id number] [address] [place] [id number] 14 Jun, 2014 [facility] [address] [id number] [address] [place] [address], [place] [address] 14 Jun, 2014 [facility] [address] [id number] [address] [place] [id number] 13 Jun, 2014 [facility] [address] [id number] [address] [place] [id number] 13 Jun, 2014 [facility] [address] [id number] [address] [place] [id number] 13 Jun, 2014 [facility] [address] [id number] [address] [place] [address], [place] [address] 13 Jun, 2014 [facility] [address] [id number] [address] [place] [id number] 06 Jun, 2014 [facility] [address] [id number] [address] [place] [address], [place] [address] 06 Jun, 2014 [facility] [address] [id number] [facility] [place] [address] May, 2013 [facility] [address] [id number] [facility] [place] [address] May, 2013 [facility] [address] [id number] [facility] [place] [address] May, 2013 [facility] [address] [id number] [address] [place] [address], [place] [address] May, 2013 [facility] [address] [id number] [address] [place] [address], [place] [address] May, 2013 [facility] [address] [id number] [address] [place] [address], [place] [id number] May, 2013 [facility] [address] [id number] [address] [place] [address], [place] [id number] May, 2013 [facility] [address] [id number] [address] [place] [address], [place] [id number] May, 2013 [facility] [address] [id number] [address] [place] [address], [place] [id number] Apr, [facility] [address] [id number] [address] [place] [address], [place] [id number] Apr, [facility] [address] [id number] [address] [place] [address], [place] [id number] Apr, [facility] [address] [id number] [address] [place] [address], [place] [id number] Apr, [facility] [address] [id number] [address] [place] [address], [place] [id number] Apr, [facility] [address] [id number] [address] [place] [address], [place] [id number] Apr, [facility] [address] [id number] [address] [place] [address], [place] [id number] Apr, [facility] [address] [id number] [address] [place] [address], [place] [id number] Apr, [facility] [address] [id number] [address] [place] [address], [place] [id number] Apr, [facility] [address] [id number] [address] [place] [address], [place] [id number] Mar, [facility] [address] [id number] [address] [place] [address], [place] [id number] Mar, [facility] [address] [id number] [address] [place] [address], [place] [id number] Mar, [facility] [address] [id number] [address] [place] [address], [place] [id number] Feb, [facility] [address] [id number] [address] [place] [address], [place] [id number] Feb, [facility] [address] [id number] [address] [place] [address], [place] [id number] Feb, [facility] [address] [id number] [address] [place] [address], [place] [id number] Feb, [facility] [address] [id number] [address] [place] [address], [place] [id number] Feb, [facility] [address] [id number] [address] [place] [address], [place] [id number] Feb, [facility] [address] [id number] [address] [place] [address], [place] [id number] Feb, [facility] [address] [id number] [address] [place] [address], [place] [id number] Feb, [facility] [address] [id number] [address] [place] [address], [place] [id number] Feb, [facility] [address] [id number] [address] [place] [address], [place] [id number] Feb, [facility] [address] [id number] [address] [place] [address], [place] [id number] 10 Feb, 2014 [facility] [address] [id number] [address] [place] [address], [place] [id number] Feb, [facility] [address] [id number] [facility] [place] [id number] Feb, [facility] [address] [id number] [address] [place] [address], [place] [id number] Feb, [facility] [address] [id number] [address] [place] [address], [place] [id number] Feb, [facility] [address] [id number] [address] [place] [address], [place] [id number] Feb, [facility] [address] [id number] [address] [place] [address], [place] [id number] January, [facility] [address] [id number] [address] [place] [address], [place] [id number] January, [facility] [address] [id number] [address] [place] [address], [place] [id number] January, [facility] [address] [id number] [address] [place] [address], [place] [id number] January, [facility] [address] [id number] [address] [place] [address], [place] [id number] January, [facility] [address] [id number] [address] [place] [address], [place] [id number] January, [facility] [address] [id number] [address] [place] [address], [place] [id number] January, [facility] [address] [id number] [address] [place] [address], [place] [id number] January, [facility] [address] [id number] [address] [place] [address], [place] [id number] January, [facility] [address] [id number] [address] [place] [address], [place] [id number] January, [facility] [address] [id number] [address] [place] [address], [place] [id number] January, [facility] [address] [id number] [address] [place] [id number] January, [facility] [address] [id number] [facility] [place] [id number] January, [facility] [address] [id number] [facility] [place] [address] January, [facility] [address] [id number] [address] [place] [address], [place] [id number] January, [facility] [address] [id number] [address] [place] [address], [place] [id number] January, [facility] [address] [id number] [address] [place] [address], [place] [address] January, [facility] [address] [id number] [address] [place] [address], [place] [id number] January, [facility] [address] [id number] [address] [place] [address], [place] [id number] January, [facility] [address] [id number] [address] [place] [address], [place] [id number] January, [facility] [address] [id number] [address] [place] [address], [place] [id number] January, [facility] [address] [id number] [address] [place] [address], [place] [id number] January, [facility] [address] [id number] [address] [place] [address], [place] [id number] January, [facility] [address] [id number] [address] [place] [address], [place] [id number] January, [facility] [address] [id number] [address] [place] [address], [place] [id number] January, [facility] [address] [id number] [address] [place] [address], [place] [id number] January, [facility] [address] [id number] [address] [place] [address], [place] [address] Dec, [facility] [address] [id number] [address] [place] [address] Dec, [facility] [address] [id number] [facility] [place] [address] Dec, [facility] [address] [id number] [address] [place] [address], [place] [id number] Dec, [facility] [address] [id number] [address] [place] [address], [place] [address] Dec, [facility] [address] [id number] [address] [place] [address], [place] [id number] Dec, [facility] [address] [id number] [address] [place] [address], [place] [id number] Dec, [facility] [address] [id number] [address] [place] [address], [place] [address] Dec, [facility] [address] [id number] [address] [place] [address], [place] [id number] Dec, [facility] [address] [id number] [address] [place] [address], [place] [id number] Dec, [facility] [address] [id number] [address] [place] [address], [place] [id number] Dec, [facility] [address] [id number] [address] [place] [address], [place] [address] Dec, [facility] [address] [id number] [address] [place] [address], [place] [id number] Dec, [facility] [address] [id number] [address] [place] [address], [place] [id number] Dec, [facility] [address] [id number] [address] [place] [address], [place] [id number] Dec, [facility] [address] [id number] [address] [place] [address], [place] [id number] Dec, [facility] [address] [id number] [facility] [place] [id number] 08 Dec, 2013 [facility] [address] [id number] [address] [place] [address], [place] [id number] Dec, [facility] [address] [id number] [address] [place] [address], [place] [address] Dec, [facility] [address] [id number] [address] [place] [address], [place] [id number] Dec, [facility] [address] [id number] [address] [place] [address], [place] [address] Dec, [facility] [address] [id number] [address] [place] [address], [place] [address] Dec, [facility] [address] [id number] [address] [place] [address], [place] [id number] Nov, [facility] [address] [id number] [address] [place] [address], [place] [address] Nov, [facility] [address] [id number] [address] [place] [address], [place] [id number] Nov, [facility] [address] [id number] [address] [place] [address], [place] [id number] Nov, [facility] [address] [id number] [address] [place] [address], [place] [id number] Nov, [facility] [address] [id number] [address] [place] [address], [place] [id number] Nov, [facility] [address] [id number] [address] [place] [address], [place] [id number] Nov, [facility] [address] [id number] [address] [place] [address], [place] [address] Nov, [facility] [address] [id number] [address] [place] [address], [place] [address] Nov, [facility] [address] [id number] [address] [place] [address], [place] [id number] Nov, [facility] [address] [id number] [facility] [place] [id number] 18 Nov, 2013 [facility] [address] [id number] [address] [place] [address], [place] [id number] 18 Nov, 2013 [facility] [address] [id number] [address] [place] [address], [place] [id number] 14 Nov, 2013 [facility] [address] [id number] [address] [place] [address], [place] [id number] 14 Nov, 2013 [facility] [address] [id number] [address] [place] [address], [place] [id number] Nov, [facility] [address] [id number] [address] [place] [address], [place] [id number] Nov, [facility] [address] [id number] [address] [place] [address], [place] [id number] Oct, [facility] [address] [id number] [address] [place] [address], [place] [address] Oct, [facility] [address] [id number] [address] [place] [address], [place] [address] Oct, [facility] [address] [id number] [address] [place] [address], [place] [address] Oct, [facility] [address] [id number] [address] [place] [address], [place] [address] Oct, [facility] [address] [id number] [address] [place] [address], [place] [id number] Oct, [facility] [address] [id number] [address] [place] [address], [place] [address] Oct, [facility] [address] [id number] [address] [place] [address], [place] [address] Oct, [facility] [address] [id number] [address] [place] [address], [place] [id number] Oct, [facility] [address] [id number] [facility] [place] [id number] 17 Oct, 2013 [facility] [address] [id number] [address] [place] [address], [place] [id number] 14 Oct, 2013 [facility] [address] [id number] [address] [place] [address], [place] [id number] 14 Oct, 2013 [facility] [address] [id number] [address] [place] [address], [place] [id number] 04 Oct, 2013 [facility] [address] [id number] [address] [place] [address], [place] [id number] 04 Oct, 2013 [facility] [address] [id number] [address] [place] [address], [place] [id number] 03 Oct, 2013 [facility] [address] [id number] [address] [place] [address], [place] [id number] Sep, [facility] [address] [id number] [address] [place] [address], [place] [id number] Sep, [facility] [address] [id number] [address] [place] [address], [place] [address] Sep, [facility] [address] [id number] [address] [place] [address], [place] [id number] Sep, [facility] [address] [id number] [address] [place] [address], [place] [id number] Sep, [facility] [address] [id number] [address] [place] [address], [place] [id number] Sep, [facility] [address] [id number] [address] [place] [address], [place] [id number] Sep, [facility] [address] [id number] [address] [place] [address], [place] [address] Sep, [facility] [address] [id number] [address] [place] [address], [place] [id number] Sep, [facility] [address] [id number] [address] [place] [address], [place] [address] Sep, [facility] [address] [id number] [address] [place] [address], [place] [address] Sep, [facility] [address] [id number] [address] [place] [address], [place] [address] Sep, [facility] [address] [id number] [address] [place] [address], [place] [id number] Sep, [facility] [address] [id number] [address] [place] [address], [place] [address] Aug, [facility] [address] [id number] [address] [place] [address], [place] [address] Aug, [facility] [address] [id number] [address] [place] [address], [place] [id number] Aug, [facility] [address] [id number] [address] [place] [address], [place] [id number] Aug, [facility] [address] [id number] [address] [place] [address], [place] [id number] Aug, [facility] [address] [id number] [address] [place] [address], [place] [id number] 17 Aug, 2013 [facility] [address] [id number] [address] [place] [address], [place] [id number] 16 Aug, 2013 [facility] [address] [id number] [address] [place] [address], [place] [address] 16 Aug, 2013 [facility] [address] [id number] [address] [place] [address], [place] [id number] 12 Aug, 2013 [facility] [address] [id number] [address] [place] [address], [place] [id number] Aug, [facility] [address] [id number] [address] [place] [address], [place] [id number] 10 Aug, 2013 [facility] [address] [id number] [address] [place] [address], [place] [id number] 10 Aug, 2013 [facility] [address] [id number] [address] [place] [address], [place] [id number] 02 Aug, 2013 [facility] [address] [id number] [address] [place] [address], [place] [id number] 02 Aug, 2013 [facility] [address] [id number] [address] [place] [address], [place] [id number] 19 Jul, 2013 [facility] [address] [id number] [address] [place] [address], [place] [id number] 19 Jul, 2013 [facility] [address] [id number] [address] [place] [address], [place] [id number] 18 Jul, 2013 [facility] [address] [id number] [address] [place] [address], [place] [id number] 18 Jul, 2013 [facility] [address] [id number] [address] [place] [address], [place] [id number] 14 Jul, 2013 [facility] [address] [id number] [address] [place] [address], [place] [id number] 14 Jul, 2013 [facility] [address] [id number] [address] [place] [address], [place] [id number] 14 Jul, 2013 [facility] [address] [id number] [address] [place] [address], [place] [id number] 14 Jul, 2013 [facility] [address] [id number] [address] [place] [address], [place] [id number] 07 Jul, 2013 [facility] [address] [id number] [address] [place] [address], [place] [id number] 07 Jul, 2013 [facility] [address] [id number] [address] [place] [address], [place] [id number] 06 Jul, 2013 [facility] [address] [id number] [address] [place] [address], [place] [id number] 06 Jul, 2013 [facility] [address] [id number] [address] [place] [address], [place] [id number] 05 Jul, 2013 [facility] [address] [id number] [address] [place] [id number] 05 Jul, 2013 [facility] [address] [id number] [address] [place] [address], [place] [id number] 23 Jun, 2013 [facility] [address] [id number] [address] [place] [address], [place] [id number] 23 Jun, 2013 [facility] [address] [id number] [address] [place] [address], [place] [id number] 15 Jun, 2013 [facility] [address] [id number] [address] [place] [address], [place] [address] 15 Jun, 2013 [facility] [address] [id number] [address] [place] [address], [place] [id number] 14 Jun, 2013 [facility] [address] [id number] [address] [place] [address], [place] [id number] 24 May, 2012 [facility] [address] [id number] [address] [place] [address], [place] [address] 20 May, 2012 [facility] [address] [id number] [address] [place] [address], [place] [id number] 20 May, 2012 [facility] [address] [id number] [address] [place] [address], [place] [address] 20 May, 2012 [facility] [address] [id number] [address] [place] [address], [place] [id number] 19 May, 2012 [facility] [address] [id number] [address] [place] [address], [place] [id number] 13 May, 2012 [facility] [address] [id number] [address] [place] [address], [place] [id number] 12 May, 2012 [facility] [address] [id number] [address] [place] [address], [place] [id number] 12 May, 2012 [facility] [address] [id number] [address] [place] [address], [place] [id number] 11 May, 2012 [facility] [address] [id number] [address] [place] [address], [place] [id number] 11 May, 2012 [facility] [address] [id number] [address] [place] [address], [place] [id number] May, [facility] [address] [id number] [address] [place] [address], [place] [address] May, 2012 [facility] [address] [id number] [address] [place] [address], [place] [id number] 05 May, 2013 [facility] [address] [id number] [address] [place] [address], [place] [id number] May, [facility] [address] [id number] [address] [place] [address], [place] [id number] May, [facility] [address] [id number] [address] [place] [address], [place] [address] Apr, [facility] [address] [id number] [address] [place] [address], [place] [address] Apr, [facility] [address] [id number] [address] [place] [address], [place] [address] Apr, [facility] [address] [id number] [address] [place] [address], [place] [address] Apr, [facility] [address] [id number] [address] [place] [address], [place] [address] Apr, [facility] [address] [id number] [address] [place] [address], [place] [id number] Apr, [facility] [address] [id number] [address] [place] [address], [place] [address] Apr, [facility] [address] [id number] [address] [place] [address], [place] [id number] Apr, [facility] [address] [id number] [address] [place] [address], [place] [id number] Apr, [facility] [address] [id number] [address] [place] [address], [place] [address] Mar, [facility] [address] [id number] [address] [place] [address], [place] [id number] Mar, [facility] [address] [id number] [address] [place] [address], [place] [id number] Mar, [facility] [address] [id number] [address] [place] [address], [place] [id number] Mar, [facility] [address] [id number] [address] [place] [address], [place] [id number] Mar, [facility] [address] [id number] [address] [place] [address], [place] [id number] Mar, [facility] [address] [id number] [address] [place] [address], [place] [id number] Mar, [facility] [address] [id number] [address] [place] [address], [place] [id number] Mar, [facility] [address] [id number] [address] [place] [address], [place] [address] Mar, [facility] [address] [id number] [address] [place] [address], [place] [id number] Mar, [facility] [address] [id number] [address] [place] [address], [place] [id number] Mar, [facility] [address] [id number] [address] [place] [address], [place] [id number] Feb, [facility] [address] [id number] [address] [place] [address], [place] [id number] Feb, [facility] [address] [id number] [address] [place] [address], [place] [id number] Feb, [facility] [address] [id number] [address] [place] [address], [place] [id number] Feb, [facility] [address] [id number] [address] [place] [address], [place] [id number] Feb, [facility] [address] [id number] [address] [place] [address], [place] [id number] Feb, [facility] [address] [id number] [address] [place] [address], [place] [id number] Feb, [facility] [address] [id number] [address] [place] [address], [place] [id number] Feb, [facility] [address] [id number] [address] [place] [address], [place] [id number] Feb, [facility] [address] [id number] [address] [place] [address], [place] [id number] January, [facility] [address] [id number] [address] [place] [address], [place] [id number] January, [facility] [address] [id number] [address] [place] [address], [place] [id number] January, [facility] [address] [id number] [address] [place] [address], [place] [id number] January, [facility] [address] [id number] [address] [place] [address], [place] [id number] January, [facility] [address] [id number] [address] [place] [address], [place] [id number] January, [facility] [address] [id number] [address] [place] [address], [place] [id number] January, [facility] [address] [id number] [address] [place] [address], [place] [id number] January, [facility] [address] [id number] [address] [place] [address], [place] [id number] January, [facility] [address] [id number] [address] [place] [address], [place] [id number] January, [facility] [address] [id number] [address] [place] [address], [place] [id number] January, [facility] [address] [id number] [address] [place] [address], [place] [id number] January, [facility] [address] [id number] [address] [place] [address], [place] [id number] January, [facility] [address] [id number] [address] [place] [address], [place] [id number] January, [facility] [address] [id number] [address] [place] [address], [place] [id number] January, [facility] [address] [id number] [address] [place] [address], [place] [id number] January, [facility] [address] [id number] [address] [place] [address], [place] [id number] January, [facility] [address] [id number] [address] [place] [address], [place] [id number] January, [facility] [address] [id number] [address] [place] [address], [place] [id number] January, [facility] [address] [id number] [address] [place] [address], [place] [id number] January, [facility] [address] [id number] [address] [place] [address], [place] [id number] January, [facility] [address] [id number] [address] [place] [address], [place] [id number] January, [facility] [address] [id number] [address] [place] [address], [place] [id number] January, [facility] [address] [id number] [address] [place] [address], [place] [id number] Dec, [facility] [address] [id number] [address] [place] [address], [place] [id number] Dec, [facility] [address] [id number] [address] [place] [address], [place] [id number] 17 Dec, 2012 [facility] [address] [id number] [address] [place] [address], [place] [id number] 16 Dec, 2012 [facility] [address] [id number] [address] [place] [address], [place] [id number] Dec, [facility] [address] [id number] [address] [place] [address], [place] [id number] Nov, [facility] [address] [id number] [address] [place] [address], [place] [id number] Oct, [facility] [address] [id number] [address] [place] [address], [place] [id number] Oct, [facility] [address] [id number] [address] [place] [address], [place] [id number] Oct, [facility] [address] [id number] [address] [place] [address], [place] [id number] Oct, [facility] [address] [id number] [address] [place] [address], [place] [id number] Oct, [facility] [address] [id number] [address] [place] [address], [place] [id number] Sep, [facility] [address] [id number] [address] [place] [address], [place] [id number] Sep, [facility] [address] [id number] [address] [place] [address], [place] [id number] Sep, [facility] [address] [id number] [address] [place] [address], [place] [id number] Aug, [facility] [address] [id number] [address] [place] [address], [place] [id number] Aug, [facility] [address] [id number] [address] [place] [address], [place] [id number] Aug, [facility] OF [facility] [address] [id number] [address] [place] [address], [place] [id number] Aug, [facility] [address] [id number] [address] [place] [address], [place] [id number] Jul, [facility] [address] [id number] [address] [place] [address], [place] [id number] Jul, [facility] [address] [id number] [address] [place] [address], [place] [id number] Jul, [facility] [address] [id number] [address] [place] [address], [place] [id number] Jul, [facility] [address] [id number] [address] [place] [address], [place] [id number] Jul, [facility] [address] [id number] [address] [place] [address], [place] [id number] Jul, [facility] [address] [id number] [address] [place] [address], [place] [id number] Jun, [facility] [address] [id number] [address] [place] [address], [place] [id number] Jun, [facility] [address] [id number] [address] [place] [address], [place] [id number] Jun, [facility] [address] [id number] [address] [place] [address], [place] [id number] Jun, [facility] [address] [id number] [address] [place] [address], [place] [id number] Jun, [facility] [address] [id number] [address] [place] [address], [place] [id number] Jun, [facility] [address] [id number] [address] [place] [address], [place] [id number] Jun, [facility] [address] [id number] [address] [place] [address], [place] [id number] Jun, [facility] [address] [id number] [address] [place] [id number] Jun, [facility] [address] [id number] [address] [place] [id number] 02 Jun, 2012 [facility] [address] [id number] [address] [place] [address], [place] [id number] 17 May, 2012 [facility] [address] [id number] [address] [place] [address], [place] [id number] 08 May, 2012 [facility] [address] [id number] [address] [place] [address], [place] [id number] 06 Sep2011 [facility] [address] [id number] [address] [place] [address], [place] [id number] Apr, [facility] [address] [id number] [address] [place] [address], [place] [id number] Apr, [facility] [address] [id number] [address] [place] [address], [place] [id number] Apr, [facility] [address] [id number] [address] [place] [address], [place] [id number] Apr, [facility] [address] [id number] [address] [place] [address], [place] [id number] Apr, [facility] [address] [id number] [address] [place] [address], [place] [id number] Apr, [facility] [address] [id number] [address] [place] [address], [place] [id number] Apr, [facility] [address] [id number] [address] [place] [address], [place] [id number] Apr, [facility] [address] [id number] [address] [place] [address], [place] [id number] Apr, [facility] [address] [id number] [address] [place] [address], [place] [id number] Mar, [facility] [address] [id number] [address] [place] [address], [place] [id number] Mar, [facility] [address] [id number] [address] [place] [address], [place] [id number] Mar, [facility] [address] [id number] [address] [place] [address], [place] [id number] Mar, [facility] [address] [id number] [address] [place] [address], [place] [id number] Feb, [facility] [address] [id number] [address] [place] [address], [place] [id number] Feb, [facility] [address] [id number] [address] [place] [address], [place] [id number] Feb, [facility] [address] [id number] [address] [place] [address], [place] [id number] January, [facility] [address] [id number] [address] [place] [address], [place] [id number] January, [facility] [address] [id number] [address] [place] [address], [place] [id number] January, [facility] [address] [id number] [address] [place] [address], [place] [id number] January, [facility] [address] [id number] [address] [place] [address], [place] [id number] January, [facility] [address] [id number] [address] [place] [address], [place] [id number] Dec, [facility] [address] [id number] [address] [place] [address], [place] [id number] Dec, [facility] [address] [id number] [address] [place] [address], [place] [id number] Dec, [facility] [address] [id number] [address] [place] [address], [place] [id number] Oct, [facility] [address] [id number] [address] [place] [address], [place] [id number] Oct, [facility] [address] [id number] [address] [place] [address], [place] [id number] Oct, [facility] [address] [id number] [address] [place] [address], [place] [id number] Sep, [facility] [address] [id number] [address] [place] [address], [place] [id number] Sep, [facility] [address] [id number] [address] [place] [address], [place] [id number] Aug, [facility] [address] [id number] [address] [place] [address], [place] [id number] Jul, [facility] [address] [id number] [address] [place] [address], [place] [id number] 08 Jul, 2011 [facility] [address] [id number] [address] [place] [address], [place] [id number] 12 Mar, 2011 [facility] [address] [id number] [address] [place] [address], [place] [id number] 10 Aug, 2010 [facility] [address] [id number] [address] [place] [address], [place] [id number] 10 Jul, 2010 [facility] [address] [id number] [address] [place] [address], [place] [id number] Jul, [facility] [address] [id number] [address] [place] [address], [place] [id number] Jul, [facility] [address] [id number] [address] [place] [address], [place] [id number] Jul, [facility] [address] [id number] [address] [place] [address], [place] [id number] 14 Jun, 2010 [facility] [address] [id number] [address] [place] [address], [place] [id number] Jun, [facility] [address] [id number] [address] [place] [address], [place] [id number] Apr, [facility] [address] [id number] [address] [place] [address], [place] [id number] Aug, [facility] [address] [id number] [address] [place] [address], [place] [id number] 17 Jul, 2009 [facility] [address] [id number] [address] [place] [address], [place] [id number] 17 Jul, 2009 [facility] [address] [id number] [address] [place] [address], [place] [id number] 13 Jul, 2009 [facility] [address] [id number] [address] [place] [address], [place] [id number] 23 Jun, 2009 [facility] [address] [id number] [address] [place] [id number] 10 May, 2009 [facility] [address] [facility] [id number] [address] [place] [id number] Dec, [facility] [address] [facility] [id number] [address] [place] [id number] Nov, [facility] [address] [facility] [id number] [address] [place] [id number] Oct, [facility] [address] [facility] [id number] [address] [place] [id number] Aug, [facility] [address] [facility] [id number] [address] [place] [id number] Aug, [facility] [address] [facility] [id number] [address] [place] [phone] Jun, IMMUNIZATIONS Vaccine Route Administration Date Status PRIVATE PPSV23 (PNEUMOVAX) Unknown Jul 06, 2013 Admin istered SOCIAL HISTORY Never Assessed REASON FOR VISIT PLAN OF CARE VITAL SIGNS Height 66 in 2013-07-06 Weight 294 lbs 2013-07-06 Temperature 99.4 degrees Fahrenheit 2013-07-06 Heart Rate 90 bpm 2013-07-06 Respiratory Rate 28 2013-07-06 Blood pressure systolic 120 mmHg 2013-07-06 Blood pressure diastolic 60 mmHg 2013-07-06 MEDICATIONS Unknown Medications RESULTS No Results PROCEDURES Procedure Date Ordered Result Body Site MEASURE BLOOD OXYGEN LEVEL Jul 06, 2013 INSTRUCTIONS MEDICATIONS ADMINISTERED No Known Medications [...] x 3 day s 04/2012 Hospitalization History [facility]- Right wrist injury 03/29/2018
--- OUTSIDE RECORDS SUMMARY | 2020-04-09 00:05 | XMS REPORT ---
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 Name Role Phone Migration, Doctor Unavailable Unavailable PROBLEMS Type Condition ICD9-CM Code DWS11-DQ Code Onset Dates Condition S tatus SNOMED Code Problem Irregular menses N92.6 Active 801 55602 Problem Migraine with aura and without status migrainosu s, not intractable G43.109 Active 4199326 Problem Uncontrolled type 2 diabetes mellitus with hyperglycemia E11.65 Active 918764186 Problem Morbid obesity due to excess calories E66.01 Active 560090953 Problem RLS (restless legs syndrome) G25.81 A ctive 28667951 Problem Morbid obesity E66.01 Active 53425 6002 ALLERGIES No Information ENCOUNTERS Encounter Location Date Diagnosis [facility] [address] [facility] [id number] [address] [place] [id number] 15 Feb, 2020 Encounter for screening labo ratory testing for COVID-19 virus Z11.59 [facility] [address] [place] [id number] [address] [place] [id number] 08 Feb, 2020 [facility] [address] [id number] [address] [place] [address] January, [facility] [address] [id number] [address] [place] [address] January, BMI 50.0-59.9, adult Z68.43 and Vomiting, unspecified R11.10 [facility] [address] [facility] [id number] [address] [place] [address] January, [facility] [address] [id number] [address] [place] [phone] Dec, [facility] [address] [facility] [id number] [address] [place] [id number] Dec, [facility] [address] [id number] [address] [place] [id number] 23 Dec, 2019 Uncontrolled type 2 diabetes mellitus with hyperglycemia E11.65 [facility] [address] [id number] [address] [place] [id number] 07 Dec, 2019 [facility] [address] [id number] [address] [place] [id number] 06 Dec, 2019 [facility] [address] [id number] [address] [place] [id number] 03 Dec, 2019 [facility] [address] [id number] [address] [place] [id number] 30 Nov, 2019 [facility] [address] [id number] [address] [place] [address] 28 Nov, 2019 [facility] [address] [id number] [address] [place] [id number] Nov, [facility] [address] [facility] [id number] [address] [place] [address] Nov, RLS (restless legs syndrome) G25.81 [facility] [address] [id number] [address] [place] [id number] 15 Oct, 2019 [facility] [address] [id number] [address] [place] [id number] 09 Oct, 2019 Influenza J11.1 [facility] [address] [id number] [address] [place] [id number] 16 Sep, 2019 [facility] [address] [id number] [address] [place] [id number] 14 Sep, 2019 [facility] [address] [id number] [address] [place] [address] 14 Sep, 2019 [facility] [address] [id number] [address] [place] [address] 13 Sep, 2019 [facility] [address] [id number] [address] [place] [id number] Sep, Pneumonia of left lower lobe due to infectious organism J18.9 and Migraine with aura and without status migrainosus, not intractable G43.109 [facility] [address] [id number] [address] [place] [address] Sep, [facility] [address] [id number] [address] [place] [phone] Sep, [facility] [address] [id number] [address] [place] [phone] Sep, [facility] [address] [id number] [address] [place] [address] Sep, [facility] [address] [id number] [address] [place] [address] Sep, Pneumonia of left lower lobe due to infectious organism J18.9 and Migraine with aura and without status migrainosus, not intractable G43.109 [facility] [address] [id number] [address] [place] [address] Aug, Irregular menses N92.6 ; Wel l woman exam Z01.419 ; Pelvic cramping R10.2 and Left breast lump N63.20 [place] [address] [id number] [address] [place] [address] Aug, [place] [address] [id number] [address] [place] [address] Aug, Well woman exam Z01.419 ; Le ft breast lump N63.20 ; Irregular menses N92.6 ; Encounter for immunization Z23 ; Pelvic cramping R10.2 and Screening for cervical cancer Z12.4 [facility] [address] [id number] [address] [place] [id number] Aug, [facility] [address] [id number] [address] [place] [id number] Aug, [facility] [address] [id number] [address] [place] [id number] Aug, [place] [id number] [facility] [id number] [address] [place] [address] Jul, [facility] [address] [facility] [id number] [place] [address] Jun, [facility] [address] [facility] [id number] [address] [place] [address] Jun, [facility] [address] [id number] [place] [address] Jun, [facility] [address] [facility] [id number] [address] [place] [address] Jun, BMI 50.0-59.9, adult Z68.43 [facility] [address] [place] [id number] [address] [place] [address] Jun, [facility] [address] [id number] [address] [place] [phone] May, Acute non-recurrent sinusiti s, unspecified location J01.90 ; Diarrhea, unspecified R19.7 ; Vomiting, unspecified R11.10 and Morbid obesity E66.01 [facility] [address] [place] [id number] [address] [place] [address] Apr, [facility] [address] [id number] [address] [place] [address] Apr, Anemia due to other cause, n ot classified D64.89 and D-dimer, elevated R79.89 [facility] [address] [place] [place] [id number] [address] [place] [address] Apr, [facility] [address] [facility] [id number] [address] [place] [address] Apr, [facility] [address] [id number] [address] [place] [address] Mar, Anemia due to other cause, n ot classified D64.89 and D-dimer, elevated R79.89 [facility] [address] [place] [id number] [address] [place] [address] Mar, Leg edema, right R60.0 ; Hig h risk medication use Z79.899 and Morbid obesity E66.01 [place] [address] [place] [id number] [address] [place] [address] Mar, BMI 50.0-59.9, adult Z68.43 [place] [address] [place] [place] [id number] [place] [address] Mar, [place] [address] [place] [id number] [address] [place] [address] January, Uncontrolled type 2 diabetes mellitus with hyperglycemia E11.65 ; RLS (restless legs syndrome) G25.81 and Morbid obesity E66.01 [place] [address] [id number] [address] [place] [address] Oct, Lipoma of right lower extrem ity D17.23 [place] [address] [place] [id number] [address] [place] [id number] Oct, Lipoma of right lower extrem ity D17.23 [place] [address] [place] [id number] [address] [place] [address] Sep, [place] [address] [place] [id number] [address] [place] [address] Sep, [place] [address] [place] [id number] [address] [place] [address] Sep, [place] [address] [place] [id number] [address] [place] [address] Sep, [place] [address] [facility] [id number] [address] [place] [address] Sep, [place] [address] [place] [id number] [address] [place] [address] Aug, Uncontrolled type 2 diabetes mellitus with hyperglycemia E11.65 ; Morbid obesity due to excess calories E66.01 ; Lipoma of torso D17.1 and BMI 50.0-59.9, adult Z68.43 [facility] [address] [id number] [address] [place] [address] Jun, Encounter for immunization Z 23 [facility] [address] [id number] [address] [place] [address] Jul, [facility] [address] [id number] [address] [place] [id number] Jun, Encounter for immunization Z 23 [facility] [address] [id number] [address] [place] [address] 30 May, 2016 [facility] [address] [id number] [address] [place] [id number] Jun, Encounter for immunization Z 23 [facility] [address] [id number] [address] [place] [id number] 29 May, 2015 [facility] [address] [id number] [address] [place] [id number] May, [facility] [address] [id number] [address] [place] [id number] Apr, [facility] [address] [id number] [address] [place] [address] Feb, [facility] [address] [id number] [address] [place] [id number] Feb, [facility] [address] [id number] [address] [place] [address] Feb, [facility] [address] [id number] [address] [place] [id number] January, [facility] [address] [id number] [address] [place] [phone] January, [facility] [address] [id number] [address] [place] [id number] Dec, [facility] [address] [id number] [address] [place] [phone] Dec, [facility] [address] [id number] [address] [place] [address], [place] [address] Nov, [facility] [address] [id number] [address] [place] [address], [place] [address] Nov, [facility] [address] [id number] [address] [place] [address], [place] [address] Nov, [facility] [address] [id number] [address] [place] [address], [place] [address] Nov, [facility] [address] [id number] [address] [place] [address], [place] [address] Nov, [facility] [address] [id number] [address] [place] [address], [place] [address] Nov, [facility] [address] [id number] [address] [place] [address], [place] [address] Nov, [facility] [address] [id number] [address] [place] [address], [place] [address] Oct, [facility] [address] [id number] [address] [place] [address], [place] [address] Oct, [facility] [address] [id number] [address] [place] [address], [place] [address] Oct, [facility] [address] [id number] [address] [place] [address], [place] [address] Oct, [facility] [address] [id number] [address] [place] [address], [place] [address] Oct, [facility] [address] [id number] [address] [place] [address], [place] [address] Sep, [facility] [address] [id number] [address] [place] [address], [place] [address] Sep, [facility] [address] [id number] [address] [place] [address], [place] [address] Sep, [facility] [address] [id number] [address] [place] [address], [place] [address] Sep, [facility] [address] [id number] [address] [place] [address], [place] [address] Sep, [facility] [address] [id number] [address] [place] [address], [place] [address] Sep, [facility] [address] [id number] [address] [place] [address], [place] [address] Sep, [facility] [address] [id number] [address] [place] [address], [place] [address] Sep, [facility] [address] [id number] [address] [place] [address], [place] [address] Sep, [facility] [address] [id number] [address] [place] [address], [place] [address] Sep, [facility] [address] [id number] [address] [place] [address], [place] [address] Aug, [facility] [address] [id number] [address] [place] [address], [place] [address] Aug, [facility] [address] [id number] [address] [place] [address], [place] [address] Aug, [facility] [address] [id number] [address] [place] [address], [place] [address] Aug, [facility] [address] [id number] [address] [place] [address], [place] [address] Aug, [facility] [address] [id number] [address] [place] [address], [place] [address] Aug, [facility] [address] [id number] [address] [place] [address], [place] [address] Aug, [facility] [address] [id number] [address] [place] [address], [place] [address] Aug, [facility] [address] [id number] [address] [place] [address], [place] [address] Aug, [facility] [address] [id number] [address] [place] [address], [place] [address] Aug, [facility] [address] [id number] [address] [place] [address], [place] [address] Aug, [facility] [address] [id number] [address] [place] [address], [place] [address] Aug, [facility] [address] [id number] [address] [place] [address], [place] [address] Aug, [facility] [address] [id number] [address] [place] [address], [place] [address] Aug, [facility] [address] [id number] [address] [place] [address], [place] [address] Aug, [facility] [address] [id number] [address] [place] [address], [place] [address] Aug, [facility] [address] [id number] [address] [place] [address], [place] [address] Aug, [facility] [address] [id number] [address] [place] [address], [place] [address] Aug, [facility] [address] [id number] [address] [place] [address], [place] [address] Aug, [facility] [address] [id number] [address] [place] [address], [place] [address] Aug, [facility] [address] [id number] [address] [place] [address], [place] [address] Aug, [facility] [address] [id number] [address] [place] [address], [place] [address] Aug, [facility] [address] [id number] [address] [place] [address], [place] [address] 05 Aug, 2014 [facility] [address] [id number] [address] [place] [address], [place] [address] 05 Aug, 2014 [facility] [address] [id number] [address] [place] [address], [place] [address] 07 Jul, 2014 [facility] [address] [id number] [address] [place] [address], [place] [address] 07 Jul, 2014 [facility] [address] [id number] [address] [place] [address], [place] [address] 27 Jun, 2014 [facility] [address] [id number] [address] [place] [address], [place] [address] 27 Jun, 2014 [facility] [address] [id number] [address] [place] [id number] 17 Jun, 2014 [facility] [address] [id number] [address] [place] [address], [place] [address] 17 Jun, 2014 [facility] [address] [id number] [address] [place] [id number] 15 Jun, 2014 [facility] [address] [id number] [address] [place] [address], [place] [address] 15 Jun, 2014 [facility] [address] [id number] [address] [place] [id number] 14 Jun, 2014 [facility] [address] [id number] [address] [place] [address], [place] [address] 14 Jun, 2014 [facility] [address] [id number] [address] [place] [id number] 13 Jun, 2014 [facility] [address] [id number] [address] [place] [id number] 13 Jun, 2014 [facility] [address] [id number] [address] [place] [id number] 13 Jun, 2014 [facility] [address] [id number] [address] [place] [address], [place] [address] 13 Jun, 2014 [facility] [address] [id number] [address] [place] [id number] 06 Jun, 2014 [facility] [address] [id number] [address] [place] [address], [place] [address] 06 Jun, 2014 [facility] [address] [id number] [facility] [place] [address] May, 2013 [facility] [address] [id number] [facility] [place] [address] May, 2013 [facility] [address] [id number] [facility] [place] [address] May, 2013 [facility] [address] [id number] [address] [place] [address], [place] [address] May, 2013 [facility] [address] [id number] [address] [place] [address], [place] [address] May, 2013 [facility] [address] [id number] [address] [place] [address], [place] [address] May, 2013 [facility] [address] [id number] [address] [place] [address], [place] [address] May, 2013 [facility] [address] [id number] [address] [place] [address], [place] [address] May, 2013 [facility] [address] [id number] [address] [place] [address], [place] [address] Apr, [facility] [address] [id number] [address] [place] [address], [place] [address] Apr, [facility] [address] [id number] [address] [place] [address], [place] [address] Apr, [facility] [address] [id number] [address] [place] [address], [place] [address] Apr, [facility] [address] [id number] [address] [place] [address], [place] [address] Apr, [facility] [address] [id number] [address] [place] [address], [place] [id number] Apr, [facility] [address] [id number] [address] [place] [address], [place] [id number] Apr, [facility] [address] [id number] [address] [place] [address], [place] [id number] Apr, [facility] [address] [id number] [address] [place] [address], [place] [address] Apr, [facility] [address] [id number] [address] [place] [address], [place] [id number] Mar, [facility] [address] [id number] [address] [place] [address], [place] [address] Mar, [facility] [address] [id number] [address] [place] [address], [place] [id number] Mar, [facility] [address] [id number] [address] [place] [address], [place] [id number] Feb, [facility] [address] [id number] [address] [place] [address], [place] [id number] Feb, [facility] [address] [id number] [address] [place] [address], [place] [id number] Feb, [facility] [address] [id number] [address] [place] [address], [place] [id number] Feb, [facility] [address] [id number] [address] [place] [address], [place] [id number] Feb, [facility] [address] [id number] [address] [place] [address], [place] [id number] Feb, [facility] [address] [id number] [address] [place] [address], [place] [id number] Feb, [facility] [address] [id number] [address] [place] [address], [place] [id number] Feb, [facility] [address] [id number] [address] [place] [address], [place] [id number] Feb, [facility] [address] [id number] [address] [place] [address], [place] [id number] Feb, [facility] [address] [id number] [address] [place] [address], [place] [id number] 10 Feb, 2014 [facility] [address] [id number] [address] [place] [address], [place] [id number] Feb, [facility] [address] [id number] [facility] [place] [address] Feb, [facility] [address] [id number] [address] [place] [address], [place] [id number] Feb, [facility] [address] [id number] [address] [place] [address], [place] [address] Feb, [facility] [address] [id number] [address] [place] [address], [place] [id number] Feb, [facility] [address] [id number] [address] [place] [address], [place] [id number] January, [facility] [address] [id number] [address] [place] [address], [place] [address] January, [facility] [address] [id number] [address] [place] [address], [place] [id number] January, [facility] [address] [id number] [address] [place] [address], [place] [id number] January, [facility] [address] [id number] [address] [place] [address], [place] [id number] January, [facility] [address] [id number] [address] [place] [address], [place] [id number] January, [facility] [address] [id number] [address] [place] [address], [place] [id number] January, [facility] [address] [id number] [address] [place] [address], [place] [id number] January, [facility] [address] [id number] [address] [place] [address], [place] [id number] January, [facility] [address] [id number] [address] [place] [address], [place] [id number] January, [facility] [address] [id number] [address] [place] [address], [place] [id number] January, [facility] [address] [id number] [facility] [place] [address] January, [facility] [address] [id number] [facility] [place] [address] January, [facility] [address] [id number] [facility] [place] [address] January, [facility] [address] [id number] [address] [place] [address], [place] [id number] January, [facility] [address] [id number] [address] [place] [address], [place] [id number] January, [facility] [address] [id number] [address] [place] [address], [place] [address] January, [facility] [address] [id number] [address] [place] [address], [place] [address] January, [facility] [address] [id number] [address] [place] [address], [place] [address] January, [facility] [address] [id number] [address] [place] [address], [place] [address] January, [facility] [address] [id number] [address] [place] [address], [place] [address] January, [facility] [address] [id number] [address] [place] [address], [place] [address] January, [facility] [address] [id number] [address] [place] [address], [place] [address] January, [facility] [address] [id number] [address] [place] [address], [place] [id number] January, [facility] [address] [id number] [address] [place] [address], [place] [address] January, [facility] [address] [id number] [address] [place] [address], [place] [id number] January, [facility] [address] [id number] [address] [place] [address], [place] [address] Dec, [facility] [address] [id number] [facility] [place] [address] Dec, [facility] [address] [id number] [facility] [place] [address] Dec, [facility] [address] [id number] [address] [place] [address], [place] [address] Dec, [facility] [address] [id number] [address] [place] [address], [place] [address] Dec, [facility] [address] [id number] [address] [place] [address], [place] [address] Dec, [facility] [address] [id number] [address] [place] [address], [place] [address] Dec, [facility] [address] [id number] [address] [place] [address], [place] [address] Dec, [facility] [address] [id number] [address] [place] [address], [place] [address] Dec, [facility] [address] [id number] [address] [place] [address], [place] [address] Dec, [facility] [address] [id number] [address] [place] [address], [place] [address] Dec, [facility] [address] [id number] [address] [place] [address], [place] [address] Dec, [facility] [address] [id number] [address] [place] [address], [place] [address] Dec, [facility] [address] [id number] [address] [place] [address], [place] [id number] Dec, [facility] [address] [id number] [address] [place] [address], [place] [id number] Dec, [facility] [address] [id number] [address] [place] [address], [place] [address] Dec, [facility] [address] [id number] [facility] [place] [id number] 08 Dec, 2013 [facility] [address] [id number] [address] [place] [address], [place] [address] Dec, [facility] [address] [id number] [address] [place] [address], [place] [address] Dec, [facility] [address] [id number] [address] [place] [address], [place] [address] Dec, [facility] [address] [id number] [address] [place] [address], [place] [address] Dec, [facility] [address] [id number] [address] [place] [address], [place] [address] Dec, [facility] [address] [id number] [address] [place] [address], [place] [address] Nov, [facility] [address] [id number] [address] [place] [address], [place] [address] Nov, [facility] [address] [id number] [address] [place] [address], [place] [address] Nov, [facility] [address] [id number] [address] [place] [address], [place] [address] Nov, [facility] [address] [id number] [address] [place] [address], [place] [address] Nov, [facility] [address] [id number] [address] [place] [address], [place] [address] Nov, [facility] [address] [id number] [address] [place] [address], [place] [address] Nov, [facility] [address] [id number] [address] [place] [address], [place] [address] Nov, [facility] [address] [id number] [address] [place] [address], [place] [address] Nov, [facility] [address] [id number] [address] [place] [address], [place] [address] Nov, [facility] [address] [id number] [facility] [place] [address] 18 Nov, 2013 [facility] [address] [id number] [address] [place] [address], [place] [address] 18 Nov, 2013 [facility] [address] [id number] [address] [place] [address], [place] [address] 14 Nov, 2013 [facility] [address] [id number] [address] [place] [address], [place] [address] 14 Nov, 2013 [facility] [address] [id number] [address] [place] [address], [place] [address] Nov, [facility] [address] [id number] [address] [place] [address], [place] [address] Nov, [facility] [address] [id number] [address] [place] [address], [place] [address] Oct, [facility] [address] [id number] [address] [place] [address], [place] [address] Oct, [facility] [address] [id number] [address] [place] [address], [place] [address] Oct, [facility] [address] [id number] [address] [place] [address], [place] [address] Oct, [facility] [address] [id number] [address] [place] [address], [place] [address] Oct, [facility] [address] [id number] [address] [place] [address], [place] [address] Oct, [facility] [address] [id number] [address] [place] [address], [place] [address] Oct, [facility] [address] [id number] [address] [place] [address], [place] [address] Oct, [facility] [address] [id number] [address] [place] [address], [place] [address] Oct, [facility] [address] [id number] [facility] [place] [address] 17 Oct, 2013 [facility] [address] [id number] [address] [place] [address], [place] [address] 14 Oct, 2013 [facility] [address] [id number] [address] [place] [address], [place] [address] 14 Oct, 2013 [facility] [address] [id number] [address] [place] [address], [place] [address] 04 Oct, 2013 [facility] [address] [id number] [address] [place] [address], [place] [address] 04 Oct, 2013 [facility] [address] [id number] [address] [place] [address], [place] [address] 03 Oct, 2013 [facility] [address] [id number] [address] [place] [address], [place] [address] Sep, [facility] [address] [id number] [address] [place] [address], [place] [address] Sep, [facility] [address] [id number] [address] [place] [address], [place] [address] Sep, [facility] [address] [id number] [address] [place] [address], [place] [address] Sep, [facility] [address] [id number] [address] [place] [address], [place] [id number] Sep, [facility] [address] [id number] [address] [place] [address], [place] [address] Sep, [facility] [address] [id number] [address] [place] [address], [place] [address] Sep, [facility] [address] [id number] [address] [place] [address], [place] [address] Sep, [facility] [address] [id number] [address] [place] [address], [place] [address] Sep, [facility] [address] [id number] [address] [place] [address], [place] [address] Sep, [facility] [address] [id number] [address] [place] [address], [place] [address] Sep, [facility] [address] [id number] [address] [place] [address], [place] [address] Sep, [facility] [address] [id number] [address] [place] [address], [place] [address] Sep, [facility] [address] [id number] [address] [place] [address], [place] [address] Aug, [facility] [address] [id number] [address] [place] [address], [place] [address] Aug, [facility] [address] [id number] [address] [place] [address], [place] [address] Aug, [facility] [address] [id number] [address] [place] [address], [place] [address] Aug, [facility] [address] [id number] [address] [place] [address], [place] [address] Aug, [facility] [address] [id number] [address] [place] [address], [place] [address] 17 Aug, 2013 [facility] [address] [id number] [address] [place] [address], [place] [address] 16 Aug, 2013 [facility] [address] [id number] [address] [place] [address], [place] [id number] 16 Aug, 2013 [facility] [address] [id number] [address] [place] [address], [place] [address] 12 Aug, 2013 [facility] [address] [id number] [address] [place] [address], [place] [address] Aug, [facility] [address] [id number] [address] [place] [address], [place] [id number] 10 Aug, 2013 [facility] [address] [id number] [address] [place] [address], [place] [address] 10 Aug, 2013 [facility] [address] [id number] [address] [place] [address], [place] [address] 02 Aug, 2013 [facility] [address] [id number] [address] [place] [address], [place] [address] 02 Aug, 2013 [facility] [address] [id number] [address] [place] [address], [place] [address] 19 Jul, 2013 [facility] [address] [id number] [address] [place] [address], [place] [id number] 19 Jul, 2013 [facility] [address] [id number] [address] [place] [address], [place] [address] 18 Jul, 2013 [facility] [address] [id number] [address] [place] [address], [place] [address] 18 Jul, 2013 [facility] [address] [id number] [address] [place] [address], [place] [address] 14 Jul, 2013 [facility] [address] [id number] [address] [place] [address], [place] [address] 14 Jul, 2013 [facility] [address] [id number] [address] [place] [address], [place] [address] 14 Jul, 2013 [facility] [address] [id number] [address] [place] [address], [place] [address] 14 Jul, 2013 [facility] [address] [id number] [address] [place] [address], [place] [address] 07 Jul, 2013 [facility] [address] [id number] [address] [place] [address], [place] [address] 07 Jul, 2013 [facility] [address] [id number] [address] [place] [address], [place] [address] 06 Jul, 2013 [facility] [address] [id number] [address] [place] [address], [place] [address] 06 Jul, 2013 [facility] [address] [id number] [address] [place] [address], [place] [address] 05 Jul, 2013 [facility] [address] [id number] [address] [place] [id number] 05 Jul, 2013 [facility] [address] [id number] [address] [place] [address], [place] [address] 23 Jun, 2013 [facility] [address] [id number] [address] [place] [address], [place] [address] 23 Jun, 2013 [facility] [address] [id number] [address] [place] [address], [place] [address] 15 Jun, 2013 [facility] [address] [id number] [address] [place] [address], [place] [id number] 15 Jun, 2013 [facility] [address] [id number] [address] [place] [address], [place] [address] 14 Jun, 2013 [facility] [address] [id number] [address] [place] [address], [place] [address] 24 May, 2012 [facility] [address] [id number] [address] [place] [address], [place] [address] 20 May, 2012 [facility] [address] [id number] [address] [place] [address], [place] [address] 20 May, 2012 [facility] [address] [id number] [address] [place] [address], [place] [address] 20 May, 2012 [facility] [address] [id number] [address] [place] [address], [place] [address] 19 May, 2012 [facility] [address] [id number] [address] [place] [address], [place] [address] 13 May, 2012 [facility] [address] [id number] [address] [place] [address], [place] [address] 12 May, 2012 [facility] [address] [id number] [address] [place] [address], [place] [address] 12 May, 2012 [facility] [address] [id number] [address] [place] [address], [place] [address] 11 May, 2012 [facility] [address] [id number] [address] [place] [address], [place] [address] 11 May, 2012 [facility] [address] [id number] [address] [place] [address], [place] [address] May, [facility] [address] [id number] [address] [place] [address], [place] [address] May, 2012 [facility] [address] [id number] [address] [place] [address], [place] [address] 05 May, 2013 [facility] [address] [id number] [address] [place] [address], [place] [address] May, [facility] [address] [id number] [address] [place] [address], [place] [address] May, [facility] [address] [id number] [address] [place] [address], [place] [address] Apr, [facility] [address] [id number] [address] [place] [address], [place] [address] Apr, [facility] [address] [id number] [address] [place] [address], [place] [address] Apr, [facility] [address] [id number] [address] [place] [address], [place] [address] Apr, [facility] [address] [id number] [address] [place] [address], [place] [address] Apr, [facility] [address] [id number] [address] [place] [address], [place] [address] Apr, [facility] [address] [id number] [address] [place] [address], [place] [address] Apr, [facility] [address] [id number] [address] [place] [address], [place] [address] Apr, [facility] [address] [id number] [address] [place] [address], [place] [id number] Apr, [facility] [address] [id number] [address] [place] [address], [place] [address] Mar, [facility] [address] [id number] [address] [place] [address], [place] [address] Mar, [facility] [address] [id number] [address] [place] [address], [place] [id number] Mar, [facility] [address] [id number] [address] [place] [address], [place] [address] Mar, [facility] [address] [id number] [address] [place] [address], [place] [address] Mar, [facility] [address] [id number] [address] [place] [address], [place] [address] Mar, [facility] [address] [id number] [address] [place] [address], [place] [address] Mar, [facility] [address] [id number] [address] [place] [address], [place] [id number] Mar, [facility] [address] [id number] [address] [place] [address], [place] [id number] Mar, [facility] [address] [id number] [address] [place] [address], [place] [id number] Mar, [facility] [address] [id number] [address] [place] [address], [place] [id number] Mar, [facility] [address] [id number] [address] [place] [address], [place] [id number] Feb, [facility] [address] [id number] [address] [place] [address], [place] [id number] Feb, [facility] [address] [id number] [address] [place] [address], [place] [id number] Feb, [facility] [address] [id number] [address] [place] [address], [place] [id number] Feb, [facility] [address] [id number] [address] [place] [address], [place] [id number] Feb, [facility] [address] [id number] [address] [place] [address], [place] [id number] Feb, [facility] [address] [id number] [address] [place] [address], [place] [id number] Feb, [facility] [address] [id number] [address] [place] [address], [place] [id number] Feb, [facility] [address] [id number] [address] [place] [address], [place] [id number] Feb, [facility] [address] [id number] [address] [place] [address], [place] [id number] January, [facility] [address] [id number] [address] [place] [address], [place] [id number] January, [facility] [address] [id number] [address] [place] [address], [place] [id number] January, [facility] [address] [id number] [address] [place] [address], [place] [id number] January, [facility] [address] [id number] [address] [place] [address], [place] [id number] January, [facility] [address] [id number] [address] [place] [address], [place] [id number] January, [facility] [address] [id number] [address] [place] [address], [place] [id number] January, [facility] [address] [id number] [address] [place] [address], [place] [address] January, [facility] [address] [id number] [address] [place] [address], [place] [id number] January, [facility] [address] [id number] [address] [place] [address], [place] [id number] January, [facility] [address] [id number] [address] [place] [address], [place] [id number] January, [facility] [address] [id number] [address] [place] [address], [place] [id number] January, [facility] [address] [id number] [address] [place] [address], [place] [id number] January, [facility] [address] [id number] [address] [place] [address], [place] [id number] January, [facility] [address] [id number] [address] [place] [address], [place] [id number] January, [facility] [address] [id number] [address] [place] [address], [place] [id number] January, [facility] [address] [id number] [address] [place] [address], [place] [id number] January, [facility] [address] [id number] [address] [place] [address], [place] [address] January, [facility] [address] [id number] [address] [place] [address], [place] [id number] January, [facility] [address] [id number] [address] [place] [address], [place] [id number] January, [facility] [address] [id number] [address] [place] [address], [place] [id number] January, [facility] [address] [id number] [address] [place] [address], [place] [id number] January, [facility] [address] [id number] [address] [place] [address], [place] [id number] January, [facility] [address] [id number] [address] [place] [address], [place] [id number] Dec, [facility] [address] [id number] [address] [place] [address], [place] [id number] Dec, [facility] [address] [id number] [address] [place] [address], [place] [id number] 17 Dec, 2012 [facility] [address] [id number] [address] [place] [address], [place] [id number] 16 Dec, 2012 [facility] [address] [id number] [address] [place] [address], [place] [id number] Dec, [facility] [address] [id number] [address] [place] [address], [place] [id number] Nov, [facility] [address] [id number] [address] [place] [address], [place] [id number] Oct, [facility] [address] [id number] [address] [place] [address], [place] [id number] Oct, [facility] [address] [id number] [address] [place] [address], [place] [id number] Oct, [facility] [address] [id number] [address] [place] [address], [place] [id number] Oct, [facility] [address] [id number] [address] [place] [address], [place] [id number] Oct, [facility] [address] [id number] [address] [place] [address], [place] [id number] Sep, [facility] [address] [id number] [address] [place] [address], [place] [id number] Sep, [facility] [address] [id number] [address] [place] [address], [place] [id number] Sep, [facility] [address] [id number] [address] [place] [address], [place] [id number] Aug, [facility] [address] [id number] [address] [place] [address], [place] [id number] Aug, [facility] [address] [id number] [address] [place] [address], [place] [id number] Aug, [facility] [address] [id number] [address] [place] [address], [place] [id number] Aug, [facility] [address] [id number] [address] [place] [address], [place] [id number] Jul, [facility] [address] [id number] [address] [place] [address], [place] [id number] Jul, [facility] [address] [id number] [address] [place] [address], [place] [id number] Jul, [facility] [address] [id number] [address] [place] [address], [place] [address] Jul, [facility] [address] [id number] [address] [place] [address], [place] [id number] Jul, [facility] [address] [id number] [address] [place] [address], [place] [id number] Jul, [facility] [address] [id number] [address] [place] [address], [place] [id number] Jun, [facility] [address] [id number] [address] [place] [address], [place] [id number] Jun, [facility] [address] [id number] [address] [place] [address], [place] [id number] Jun, [facility] [address] [id number] [address] [place] [address], [place] [address] Jun, [facility] [address] [id number] [address] [place] [address], [place] [id number] Jun, [facility] [address] [id number] [address] [place] [address], [place] [address] Jun, [facility] [address] [id number] [address] [place] [address], [place] [address] Jun, [facility] [address] [id number] [address] [place] [address], [place] [id number] Jun, [facility] [address] [id number] [address] [place] [id number] Jun, [facility] [address] [id number] [address] [place] [id number] 02 Jun, 2012 [facility] [address] [id number] [address] [place] [address], [place] [id number] 17 May, 2012 [facility] [address] [id number] [address] [place] [address], [place] [id number] 08 May, 2012 [facility] [address] [id number] [address] [place] [address], [place] [id number] 06 Sep2011 [facility] [address] [id number] [address] [place] [address], [place] [id number] Apr, [facility] [address] [id number] [address] [place] [address], [place] [address] Apr, [facility] [address] [id number] [address] [place] [address], [place] [id number] Apr, [facility] [address] [id number] [address] [place] [address], [place] [address] Apr, [facility] [address] [id number] [address] [place] [address], [place] [id number] Apr, [facility] [address] [id number] [address] [place] [address], [place] [id number] Apr, [facility] [address] [id number] [address] [place] [address], [place] [id number] Apr, [facility] [address] [id number] [address] [place] [address], [place] [id number] Apr, [facility] [address] [id number] [address] [place] [address], [place] [address] Apr, [facility] [address] [id number] [address] [place] [address], [place] [id number] Mar, [facility] [address] [id number] [address] [place] [address], [place] [id number] Mar, [facility] [address] [id number] [address] [place] [address], [place] [id number] Mar, [facility] [address] [id number] [address] [place] [address], [place] [id number] Mar, [facility] [address] [id number] [address] [place] [address], [place] [id number] Feb, [facility] [address] [id number] [address] [place] [address], [place] [id number] Feb, [facility] [address] [id number] [address] [place] [address], [place] [id number] Feb, [facility] [address] [id number] [address] [place] [address], [place] [id number] January, [facility] [address] [id number] [address] [place] [address], [place] [id number] January, [facility] [address] [id number] [address] [place] [address], [place] [address] January, [facility] [address] [id number] [address] [place] [address], [place] [address] January, [facility] [address] [id number] [address] [place] [address], [place] [id number] January, [facility] [address] [id number] [address] [place] [address], [place] [id number] Dec, [facility] [address] [id number] [address] [place] [address], [place] [id number] Dec, [facility] [address] [id number] [address] [place] [address], [place] [address] Dec, [facility] [address] [id number] [address] [place] [address], [place] [id number] Oct, [facility] [address] [id number] [address] [place] [address], [place] [id number] Oct, [facility] [address] [id number] [address] [place] [address], [place] [id number] Oct, [facility] [address] [id number] [address] [place] [address], [place] [id number] Sep, [facility] [address] [id number] [address] [place] [address], [place] [id number] Sep, [facility] [address] [id number] [address] [place] [address], [place] [id number] Aug, [facility] [address] [id number] [address] [place] [address], [place] [id number] Jul, [facility] [address] [id number] [address] [place] [address], [place] [id number] 08 Jul, 2011 [facility] [address] [id number] [address] [place] [address], [place] [id number] 12 Mar, 2011 [facility] [address] [id number] [address] [place] [address], [place] [id number] 10 Aug, 2010 [facility] [address] [id number] [address] [place] [address], [place] [id number] 10 Jul, 2010 [facility] [address] [id number] [address] [place] [address], [place] [address] Jul, [facility] [address] [id number] [address] [place] [address], [place] [address] Jul, [facility] [address] [id number] [address] [place] [address], [place] [address] Jul, [facility] [address] [id number] [address] [place] [address], [place] [address] 14 Jun, 2010 [facility] [address] [id number] [address] [place] [address], [place] [id number] Jun, [facility] [address] [id number] [address] [place] [address], [place] [address] Apr, [facility] [address] [id number] [address] [place] [address], [place] [address] Aug, [facility] [address] [id number] [address] [place] [address], [place] [id number] 17 Jul, 2009 [facility] [address] [id number] [address] [place] [address], [place] [id number] 17 Jul, 2009 [facility] [address] [id number] [address] [place] [address], [place] [id number] 13 Jul, 2009 [facility] [address] [id number] [address] [place] [address], [place] [id number] 23 Jun, 2009 [facility] [address] [id number] [address] [place] [id number] 10 May, 2009 [facility] [address] [facility] [id number] [address] [place] [id number] Dec, [facility] [address] [facility] [id number] [address] [place] [id number] Nov, [facility] [address] [facility] [id number] [address] [place] [id number] Oct, [facility] [address] [facility] [id number] [address] [place] [id number] Aug, [facility] [address] [facility] [id number] [address] [place] [id number] Aug, [facility] [address] [facility] [id number] [address] [place] [id number] Jun, IMMUNIZATIONS No Known Immunizations SOCIAL HISTORY [...] x 3 day s 04/2012 Hospitalization History [facility] [place]- Right wrist injury 03/29/2018
--- OUTSIDE RECORDS SUMMARY | 2020-04-09 00:06 | XMS REPORT ---
Author Author Kateryna Turner Doctor Organization [facility] Address Unknown Phone Unavailable Care Team Providers Care Mixer Wet Pour Name Role Phone Migration, Doctor Unavailable Unavailable PROBLEMS Type Condition ICD9-CM Code ZSW36-ER Code Onset Dates Condition S tatus SNOMED Code Problem Irregular menses N92.6 Active 801 20090 Problem Migraine with aura and without status migrainosu s, not intractable G43.109 Active 4680891 Problem Uncontrolled type 2 diabetes mellitus with hyperglycemia E11.65 Active 077835154 Problem Morbid obesity due to excess calories E66.01 Active 491223013 Problem RLS (restless legs syndrome) G25.81 A ctive 73346545 Problem Morbid obesity E66.01 Active 28786 6002 ALLERGIES No Information ENCOUNTERS Encounter Location Date Diagnosis [facility] [address] [facility] [id number] [address] [place] [phone] January, [facility] [address] [facility] [id number] [address] [place] [address] Dec, [facility] [address] [facility] [id number] [address] [place] [phone] Dec, [facility] [address] [facility] [id number] [address] [place] [address] Dec, Uncontrolled type 2 diabetes mellitus with hyperglycemia E11.65 [facility] [address] [facility] [id number] [address] [place] [id number] 07 Dec, 2019 [facility] [address] [id number] [address] [place] [phone] Dec, [facility] [address] [facility] [id number] [address] [place] [phone] Dec, [facility] [address] [facility] [id number] [address] [place] [phone] Nov, [facility] [address] [id number] [address] [place] [phone] 28 Nov, 2019 [facility] [address] [id number] [address] [place] [phone] 03 Nov, 2019 [facility] [address] [facility] [id number] [address] [place] [id number] 02 Nov, 2019 RLS (restless legs syndrome) G25.81 [facility] [address] [id number] [address] [place] [id number] 15 Oct, 2019 [facility] [address] [facility] [id number] [address] [place] [phone] 09 Oct, 2019 Influenza J11.1 [facility] [address] [facility] [id number] [address] [place] [phone] 16 Sep, 2019 [facility] [address] [facility] [id number] [address] [place] [phone] 14 Sep, 2019 [facility] [address] [facility] [id number] [address] [place] [id number] 14 Sep, 2019 [facility] [address] [id number] [address] [place] [phone] 13 Sep, 2019 [facility] [address] [facility] [id number] [address] [place] [address] 10 Sep, 2019 Pneumonia of left lower lobe due to infectious organism J18.9 and Migraine with aura and without status migrainosus, not intractable G43.109 [facility] [address] [facility] [id number] [address] [place] [phone] 10 Sep, 2019 [facility] [address] [facility] [id number] [address] [place] [id number] 10 Sep, 2019 [facility] [address] [facility] [id number] [address] [place] [phone] 08 Sep, 2019 [facility] [address] [facility] [id number] [address] [place] [phone] 08 Sep, 2019 [facility] [address] [id number] [address] [place] [address] 08 Sep, 2019 Pneumonia of left lower lobe due to infectious organism J18.9 and Migraine with aura and without status migrainosus, not intractable G43.109 [facility] [address] [id number] [address] [place] [address] Aug, Irregular menses N92.6 ; Wel l woman exam Z01.419 ; Pelvic cramping R10.2 and Left breast lump N63.20 [facility] [address] [id number] [address] [place] [phone] Aug, [facility] [address] [facility] [id number] [address] [place] [id number] 17 Aug, 2019 Well woman exam Z01.419 ; Le ft breast lump N63.20 ; Irregular menses N92.6 ; Encounter for immunization Z23 ; Pelvic cramping R10.2 and Screening for cervical cancer Z12.4 [facility] [address] [facility] [id number] [address] [place] [phone] Aug, [facility] [address] [id number] [address] [place] [phone] Aug, [facility] [address] [facility] [id number] [address] [place] [phone] Aug, [facility] [address] [id number] [address] [place] [phone] Jul, [facility] [address] [facility] [id number] [address] [place] [phone] Jun, [facility] [address] [id number] [address] [place] [address] Jun, [facility] [address] [facility] [id number] [address] [place] [id number] 14 Jun, 2019 [facility] [address] [facility] [id number] [address] [place] [address] Jun, BMI 50.0-59.9, adult Z68.43 [facility] [address] [place] [id number] [address] [place] [phone] Jun, [facility] [address] [place] [id number] [place] [phone] May, Acute non-recurrent sinusiti s, unspecified location J01.90 ; Diarrhea, unspecified R19.7 ; Vomiting, unspecified R11.10 and Morbid obesity E66.01 [place] [address] [address] Apr, [place] [address] [address] Apr, Anemia due to other cause, n ot classified D64.89 and D-dimer, elevated R79.89 [place] [address] [address] Apr, [place] [address] [address] Apr, [place] [address] [address] Mar, Anemia due to other cause, n ot classified D64.89 and D-dimer, elevated R79.89 [place] [address] [address] Mar, Leg edema, right R60.0 ; Hig h risk medication use Z79.899 and Morbid obesity E66.01 [facility] [address] [place] [id number] [address] [place] [address] Mar, BMI 50.0-59.9, adult Z68.43 [place] [address] [address] Mar, [place] [address] [address] January, Uncontrolled type 2 diabetes mellitus with hyperglycemia E11.65 ; RLS (restless legs syndrome) G25.81 and Morbid obesity E66.01 [facility] [address] [id number] [address] [place] [id number] 15 Oct, 2018 Lipoma of right lower extrem ity D17.23 [facility] [address] [id number] [address] [place] [id number] 05 Oct, 2018 Lipoma of right lower extrem ity D17.23 [facility] [address] [id number] [address] [place] [address] Sep, [facility] [address] [id number] [address] [place] [id number] Sep, [facility] [address] [id number] [address] [place] [address] Sep, [facility] [address] [facility] [id number] [address] [place] [address] Sep, [facility] [address] [facility] [id number] [address] [place] [address] Sep, [facility] [address] [facility] [id number] [address] [place] [address] Aug, Uncontrolled type 2 diabetes mellitus with hyperglycemia E11.65 ; Morbid obesity due to excess calories E66.01 ; Lipoma of torso D17.1 and BMI 50.0-59.9, adult Z68.43 [facility] [address] [facility] [id number] [address] [place] [address] Jun, Encounter for immunization Z 23 [facility] [address] [id number] [address] [place] [id number] Jul, [facility] [address] [facility] [id number] [address] [place] [address] Jun, Encounter for immunization Z 23 [facility] [address] [id number] [address] [place] [address] May, [facility] [address] [facility] [id number] [address] [place] [address] Jun, Encounter for immunization Z 23 [facility] [address] [id number] [address] [place] [address], [place] [address] 29 May, 2015 [facility] [address] [id number] [address] [place] [address], [place] [address] May, [facility] [address] [id number] [address] [place] [address], [place] [address] Apr, [facility] [address] [id number] [address] [place] [address], [place] [address] Feb, [facility] [address] [id number] [address] [place] [address], [place] [address] Feb, [facility] [address] [id number] [address] [place] [address], [place] [address] Feb, [facility] [address] [id number] [address] [place] [address], [place] [address] January, [facility] [address] [id number] [address] [place] [address], [place] [address] January, [facility] [address] [id number] [address] [place] [address], [place] [address] Dec, [facility] [address] [id number] [address] [place] [address], [place] [address] Dec, [facility] [address] [id number] [address] [place] [address] Nov, [facility] [address] [id number] [address] [place] [address] Nov, [facility] [address] [id number] [address] [place] [phone] Nov, [facility] [address] [id number] [address] [place] [phone] Nov, [facility] [address] [id number] [address] [place] [address], [place] [address] Nov, [facility] [address] [id number] [address] [place] [address], [place] [address] Nov, [facility] [address] [id number] [address] [place] [address], [place] [address] Nov, [facility] [address] [id number] [address] [place] [address], [place] [address] 18 Oct, 2014 [facility] [address] [id number] [address] [place] [address], [place] [address] Oct, [facility] [address] [id number] [address] [place] [address], [place] [address] Oct, [facility] [address] [id number] [address] [place] [address], [place] [address] Oct, [facility] [address] [id number] [address] [place] [address], [place] [address] Oct, [facility] [address] [id number] [address] [place] [address], [place] [address] Sep, [facility] [address] [id number] [address] [place] [address], [place] [address] Sep, [facility] [address] [id number] [address] [place] [address], [place] [address] Sep, [facility] [address] [id number] [address] [place] [address], [place] [address] Sep, [facility] [address] [id number] [address] [place] [address], [place] [address] Sep, [facility] [address] [id number] [address] [place] [address], [place] [address] Sep, [facility] [address] [id number] [address] [place] [address], [place] [address] Sep, [facility] [address] [id number] [address] [place] [address], [place] [address] Sep, [facility] [address] [id number] [address] [place] [address], [place] [address] Sep, [facility] [address] [id number] [address] [place] [address], [place] [address] Sep, [facility] [address] [id number] [address] [place] [address], [place] [address] Aug, [facility] [address] [id number] [address] [place] [address], [place] [address] Aug, [facility] [address] [id number] [address] [place] [address], [place] [address] Aug, [facility] [address] [id number] [address] [place] [address], [place] [address] Aug, [facility] [address] [id number] [address] [place] [address], [place] [address] Aug, [facility] [address] [id number] [address] [place] [address], [place] [address] Aug, [facility] [address] [id number] [address] [place] [address], [place] [address] Aug, [facility] [address] [id number] [address] [place] [address], [place] [address] Aug, [facility] [address] [id number] [address] [place] [address], [place] [address] Aug, [facility] [address] [id number] [address] [place] [address], [place] [address] Aug, [facility] [address] [id number] [address] [place] [address], [place] [address] Aug, [facility] [address] [id number] [address] [place] [address], [place] [address] Aug, [facility] [address] [id number] [address] [place] [address], [place] [address] Aug, [facility] [address] [id number] [address] [place] [address], [place] [address] Aug, [facility] [address] [id number] [address] [place] [address], [place] [address] 17 Aug, 2014 [facility] [address] [id number] [address] [place] [address], [place] [address] 17 Aug, 2014 [facility] [address] [id number] [address] [place] [address], [place] [address] 16 Aug, 2014 [facility] [address] [id number] [address] [place] [address], [place] [address] 16 Aug, 2014 [facility] [address] [id number] [address] [place] [address], [place] [address] Aug, [facility] [address] [id number] [address] [place] [address], [place] [address] Aug, [facility] [address] [id number] [address] [place] [address], [place] [address] Aug, [facility] [address] [id number] [address] [place] [address], [place] [address] Aug, [facility] [address] [id number] [address] [place] [address], [place] [address] 05 Aug, 2014 [facility] [address] [id number] [address] [place] [address], [place] [address] 05 Aug, 2014 [facility] [address] [id number] [address] [place] [address], [place] [address] Jul, [facility] [address] [id number] [address] [place] [address], [place] [address] Jul, [facility] [address] [id number] [address] [place] [address], [place] [address] Jun, [facility] [address] [id number] [address] [place] [address], [place] [address] Jun, [facility] [address] [id number] [address] [place] [address], [place] [address] Jun, [facility] [address] [id number] [address] [place] [address], [place] [address] Jun, [facility] [address] [id number] [address] [place] [address], [place] [address] 15 Jun, 2014 [facility] [address] [id number] [address] [place] [address], [place] [address] 15 Jun, 2014 [facility] [address] [id number] [address] [place] [address], [place] [address] 14 Jun, 2014 [facility] [address] [id number] [address] [place] [address], [place] [address] 14 Jun, 2014 [facility] [address] [id number] [address] [place] [address], [place] [address] 13 Jun, 2014 [facility] [address] [id number] [address] [place] [address], [place] [address] 13 Jun, 2014 [facility] [address] [id number] [address] [place] [address], [place] [address] 13 Jun, 2014 [facility] [address] [id number] [address] [place] [address], [place] [address] Jun, [facility] [address] [id number] [address] [place] [address], [place] [address] 06 Jun, 2014 [facility] [address] [id number] [address] [place] [address], [place] [address] 06 Jun, 2014 [facility] [address] [id number] [address] [place] [address] 26 May, 2013 [facility] [address] [id number] [address] [place] [address] 26 May, 2013 [facility] [address] [id number] [address] [place] [address], [place] [address] 22 May, 2013 [facility] [address] [id number] [address] [place] [address], [place] [address] 22 May, 2013 [facility] [address] [id number] [address] [place] [address], [place] [address] 04 May, 2013 [facility] [address] [id number] [address] [place] [address] May, [facility] [address] [id number] [address] [place] [address], [place] [address] May, [facility] [address] [id number] [address] [place] [address], [place] [address] May, [facility] [address] [id number] [address] [place] [address], [place] [address] Apr, [facility] [address] [id number] [address] [place] [address], [place] [address] Apr, [facility] [address] [id number] [address] [place] [address], [place] [address] Apr, [facility] [address] [id number] [address] [place] [address], [place] [address] Apr, [facility] [address] [id number] [address] [place] [address], [place] [address] Apr, [facility] [address] [id number] [address] [place] [address], [place] [address] Apr, [facility] [address] [id number] [address] [place] [address], [place] [address] Apr, [facility] [address] [id number] [address] [place] [address], [place] [address] Apr, [facility] [address] [id number] [address] [place] [address], [place] [address] Apr, [facility] [address] [id number] [address] [place] [address], [place] [address] Mar, [facility] [address] [id number] [address] [place] [address], [place] [address] Mar, [facility] [address] [id number] [address] [place] [address], [place] [address] Mar, [facility] [address] [id number] [address] [place] [address], [place] [address] Feb, [facility] [address] [id number] [facility] [address] 30 Feb, 2014 [facility] [address] [id number] [facility] [address] Feb, [facility] [address] [id number] [facility] [address] Feb, [facility] [address] [id number] [facility] [address] Feb, [facility] [address] [id number] [facility] [address] 17 Feb, 2014 [facility] [address] [id number] [address] [place] [address], [place] [address] Feb, [facility] [address] [id number] [address] [place] [address], [place] [address] Feb, [facility] [address] [id number] [address] [place] [address], [place] [address] Feb, [facility] [address] [id number] [address] [place] [address], [place] [address] Feb, [facility] [address] [id number] [address] [place] [address], [place] [address] Feb, [facility] [address] [id number] [address] [place] [address], [place] [address] Feb, [facility] [address] [id number] [address] [place] [address], [place] [address] Feb, [facility] [address] [id number] [address] [place] [address], [place] [address] Feb, [facility] [address] [id number] [address] [place] [address], [place] [address] Feb, [facility] [address] [id number] [address] [place] [address], [place] [address] Feb, [facility] [address] [id number] [address] [place] [address], [place] [address] January, [facility] [address] [id number] [address] [address] January, [facility] [address] [id number] [address] [place] [address], [place] [address] January, [facility] [address] [id number] [address] [place] [address], [place] [address] January, [facility] [address] [id number] [address] [place] [address], [place] [address] January, [facility] [address] [id number] [address] [place] [address], [place] [address] January, [facility] [address] [id number] [address] [place] [address], [place] [address] January, [facility] [address] [id number] [address] [place] [address], [place] [address] January, [facility] [address] [id number] [address] [place] [address], [place] [address] January, [facility] [address] [id number] [address] [place] [address], [place] [address] January, [facility] [address] [id number] [address] [place] [address], [place] [address] January, [facility] [address] [id number] [address] [place] [address], [place] [address] January, [facility] [address] [id number] [address] [place] [address], [place] [address] January, [facility] [address] [id number] [address] [place] [address], [place] [address] January, [facility] [address] [id number] [address] [place] [address], [place] [address] January, [facility] [address] [id number] [address] [place] [address], [place] [address] January, [facility] [address] [id number] [address] [place] [address], [place] [address] January, [facility] [address] [id number] [address] [place] [address], [place] [address] January, [facility] [address] [id number] [address] [place] [address], [place] [address] January, [facility] [address] [id number] [address] [place] [address], [place] [address] January, [facility] [address] [id number] [address] [place] [address], [place] [address] January, [facility] [address] [id number] [address] [place] [address], [place] [address] January, [facility] [facility] [address] [id number] [address] [place] [address], [place] [address] January, [facility] [address] [id number] [address] [place] [address], [place] [address] January, [facility] [address] [id number] [address] [place] [address], [place] [address] January, [facility] [address] [id number] [address] [place] [address], [place] [address] January, [facility] [address] [id number] [address] [place] [address], [place] [address] Dec, [facility] [address] [id number] [address] [place] [address], [place] [address] Dec, [facility] [address] [id number] [address] [place] [address], [place] [address] Dec, [facility] [address] [id number] [address] [place] [address], [place] [address] Dec, [facility] [address] [id number] [address] [place] [address], [place] [address] Dec, [facility] [address] [id number] [address] [place] [address], [place] [address] Dec, [facility] [address] [id number] [facility] [address] Dec, [facility] [address] [id number] [address] [place] [address], [place] [address] Dec, [facility] [address] [id number] [address] [place] [address], [place] [address] Dec, [facility] [address] [id number] [address] [place] [address], [place] [address] Dec, [facility] [address] [id number] [address] [place] [address], [place] [address] Dec, [facility] [address] [id number] [address] [place] [address], [place] [address] Dec, [facility] [address] [id number] [address] [place] [address], [place] [address] Dec, [facility] [address] [id number] [address] [place] [address], [place] [address] Dec, [facility] [address] [id number] [address] [place] [address], [place] [address] Dec, [facility] [address] [id number] [address] [place] [address], [place] [address] Dec, [facility] [address] [id number] [address] [place] [address], [place] [address] Dec, [facility] [address] [id number] [address] [place] [address], [place] [address] Dec, [facility] [address] [id number] [address] [place] [address], [place] [address] Dec, [facility] [address] [id number] [address] [place] [address], [place] [address] Dec, [facility] [address] [id number] [address] [place] [address], [place] [address] Dec, [facility] [address] [id number] [address] [place] [address], [place] [address] 07 Dec, 2013 [facility] [address] [id number] [facility] [address] 31 Nov, 2013 [facility] [address] [id number] [address] [place] [address], [place] [address] 31 Nov, 2013 [facility] [address] [id number] [facility] [address] Nov, [facility] [address] [id number] [address] [place] [address], [place] [address] Nov, [facility] [address] [id number] [facility] [address] 24 Nov, 2013 [facility] [address] [id number] [address] [place] [address], [place] [address] 24 Nov, 2013 [facility] [address] [id number] [address] [place] [address], [place] [address] Nov, [facility] [address] [id number] [address] [place] [address], [place] [address] 22 Nov, 2013 [facility] [address] [id number] [address] [place] [address], [place] [address] 18 Nov, 2013 [facility] [address] [id number] [address] [place] [address], [place] [address] 18 Nov, 2013 [facility] [address] [id number] [address] [place] [address], [place] [address] 18 Nov, 2013 [facility] [address] [id number] [address] [place] [address], [place] [address] 18 Nov, 2013 [facility] [address] [id number] [address] [place] [address], [place] [address] 14 Nov, 2013 [facility] [address] [id number] [address] [place] [address], [place] [address] 14 Nov, 2013 [facility] [address] [id number] [address] [place] [address], [place] [address] 06 Nov, 2013 [facility] [address] [id number] [address] [place] [address], [place] [address] Nov, [facility] [address] [id number] [address] [place] [address], [place] [address] Oct, [facility] [address] [id number] [address] [place] [address], [place] [address] Oct, [facility] [address] [id number] [address] [place] [address], [place] [address] Oct, [facility] [address] [id number] [address] [place] [address], [place] [address] Oct, [facility] [address] [id number] [address] [place] [address], [place] [address] Oct, [facility] [address] [id number] [address] [place] [address], [place] [address] Oct, [facility] [address] [id number] [address] [place] [address], [place] [address] Oct, [facility] [address] [id number] [address] [place] [address], [place] [address] Oct, [facility] [address] [id number] [address] [place] [address], [place] [address] Oct, [facility] [address] [id number] [address] [place] [address], [place] [address] Oct, [facility] [address] [id number] [address] [place] [address] Oct, [facility] [address] [id number] [address] [place] [address], [place] [address] Oct, [facility] [address] [id number] [address] [place] [address], [place] [address] Oct, [facility] [address] [id number] [address] [place] [address], [place] [address] Oct, [facility] [address] [id number] [address] [place] [address] Oct, [facility] [address] [id number] [address] [place] [address], [place] [address] Sep, [facility] [address] [id number] [address] [place] [address], [place] [address] Sep, [facility] [address] [id number] [address] [place] [address], [place] [address] Sep, [facility] [address] [id number] [address] [place] [address], [place] [address] Sep, [facility] [address] [id number] [address] [place] [address], [place] [address] Sep, [facility] [address] [id number] [address] [place] [address], [place] [address] Sep, [facility] [address] [id number] [address] [place] [address], [place] [address] Sep, [facility] [address] [id number] [address] [place] [address], [place] [address] Sep, [facility] [address] [id number] [address] [place] [address], [place] [address] Sep, [facility] [address] [id number] [address] [place] [address], [place] [address] Sep, [facility] [address] [id number] [address] [place] [address], [place] [address] Sep, [facility] [address] [id number] [address] [place] [address], [place] [address] Sep, [facility] [address] [id number] [address] [place] [address], [place] [address] Sep, [facility] [address] [id number] [address] [place] [address], [place] [address] Aug, [facility] [address] [id number] [address] [place] [address], [place] [address] Aug, [facility] [address] [id number] [address] [place] [address], [place] [address] 24 Aug, 2013 [facility] [address] [id number] [address] [place] [address], [place] [address] 24 Aug, 2013 [facility] [address] [id number] [address] [place] [address], [place] [address] 17 Aug, 2013 [facility] [address] [id number] [address] [place] [address], [place] [address] 17 Aug, 2013 [facility] [address] [id number] [address] [place] [address], [place] [address] 16 Aug, 2013 [facility] [address] [id number] [address] [place] [address], [place] [address] 16 Aug, 2013 [facility] [address] [id number] [address] [place] [address], [place] [address] Aug, [facility] [address] [id number] [address] [place] [address], [place] [address] Aug, [facility] [address] [id number] [address] [place] [address], [place] [address] Aug, [facility] [address] [id number] [address] [place] [address], [place] [address] Aug, [facility] [address] [id number] [address] [place] [address], [place] [address] Aug, [facility] [address] [id number] [address] [place] [address], [place] [address] Aug, [facility] [address] [id number] [address] [place] [address], [place] [address] Jul, [facility] [address] [id number] [address] [place] [address], [place] [address] Jul, [facility] [address] [id number] [address] [place] [address], [place] [address] 18 Jul, 2013 [facility] [address] [id number] [address] [place] [address], [place] [address] 18 Jul, 2013 [facility] [address] [id number] [address] [place] [address], [place] [address] 14 Jul, 2013 [facility] [address] [id number] [address] [place] [address], [place] [address] 14 Jul, 2013 [facility] [address] [id number] [address] [place] [address], [place] [address] 14 Jul, 2013 [facility] [address] [id number] [address] [place] [address] 14 Jul, 2013 [facility] [address] [id number] [address] [place] [address], [place] [address] 07 Jul, 2013 [facility] [address] [id number] [address] [place] [address] 07 Jul, 2013 [facility] [address] [id number] [address] [place] [address], [place] [address] 06 Jul, 2013 [facility] [address] [id number] [address] [place] [address] 06 Jul, 2013 [facility] [address] [id number] [address] [place] [address] 05 Jul, 2013 [facility] [address] [id number] [address] [place] [address] 05 Jul, 2013 [facility] [address] [id number] [address] [place] [address] 23 Jun, 2013 [facility] [address] [id number] [address] [place] [address] 23 Jun, 2013 [facility] [address] [id number] [address] [place] [address] 15 Jun, 2013 [facility] [address] [id number] [address] [place] [address] 15 Jun, 2013 [facility] [address] [id number] [address] [place] [address] 14 Jun, 2013 [facility] [address] [id number] [facility] [place] [address] 24 Sep, 2012 [facility] [address] [id number] [address] [place] [address], [place] [address] 20 Sep, 2012 [facility] [address] [id number] [address] [place] [address], [place] [address] 20 Sep, 2012 [facility] [address] [id number] [address] [place] [address], [place] [address] 20 Sep, 2012 [facility] [address] [id number] [address] [place] [address], [place] [address] 19 Sep, 2012 [facility] [address] [id number] [address] [place] [address], [place] [address] 13 May, 2012 [facility] [address] [id number] [address] [place] [address], [place] [address] 12 May, 2012 [facility] [address] [id number] [address] [place] [address], [place] [address] 12 May, 2012 [facility] [address] [id number] [address] [place] [address], [place] [address] 11 Sep, 2012 [facility] [address] [id number] [address] [place] [address], [place] [address] 11 May, 2012 [facility] [address] [id number] [address] [place] [address], [place] [address] 11 Sep, 2012 [facility] [address] [id number] [address] [place] [address], [place] [address] 09 Sep, 2012 [facility] [address] [id number] [address] [place] [address], [place] [address] 05 Sep, 2012 [facility] [address] [id number] [address] [place] [address], [place] [address] 04 Sep, 2012 [facility] [address] [id number] [address] [place] [address], [place] [address] 03 Sep, 2012 [facility] [address] [id number] [address] [place] [address], [place] [address] Apr, [facility] [address] [id number] [address] [place] [address], [place] [address] Apr, [facility] [address] [id number] [address] [place] [address], [place] [address] Apr, [facility] [address] [id number] [address] [place] [address], [place] [address] Apr, [facility] [address] [id number] [address] [place] [address], [place] [address] Apr, [facility] [address] [id number] [address] [place] [address], [place] [address] Apr, [facility] [address] [id number] [address] [place] [address], [place] [address] Apr, [facility] [address] [id number] [address] [place] [address], [place] [address] Apr, [facility] [address] [id number] [address] [place] [address], [place] [address] Apr, [facility] [address] [id number] [address] [place] [address], [place] [address] Mar, [facility] [address] [id number] [address] [place] [address], [place] [address] Mar, [facility] [address] [id number] [address] [place] [address], [place] [address] Mar, [facility] [address] [id number] [address] [place] [address], [place] [address] Mar, [facility] [address] [id number] [address] [place] [address], [place] [address] Mar, [facility] [address] [id number] [address] [place] [address], [place] [address] Mar, [facility] [address] [id number] [address] [place] [address], [place] [address] Mar, [facility] [address] [id number] [address] [place] [address], [place] [address] Mar, [facility] [address] [id number] [address] [place] [address], [place] [address] Mar, [facility] [address] [id number] [address] [place] [address], [place] [address] Mar, [facility] [address] [id number] [address] [place] [address], [place] [address] Mar, [facility] [address] [id number] [address] [place] [address], [place] [address] Feb, [facility] [address] [id number] [address] [place] [address], [place] [address] Feb, [facility] [address] [id number] [address] [place] [address], [place] [address] Feb, [facility] [address] [id number] [address] [place] [address], [place] [address] Feb, [facility] [address] [id number] [address] [place] [address], [place] [address] Feb, [facility] [address] [id number] [address] [place] [address], [place] [address] Feb, [facility] [address] [id number] [address] [place] [address], [place] [address] Feb, [facility] [address] [id number] [address] [place] [address], [place] [address] Feb, [facility] [address] [id number] [address] [place] [address], [place] [address] Feb, [facility] [address] [id number] [address] [place] [address], [place] [address] January, [facility] [address] [id number] [address] [place] [address], [place] [address] January, [facility] [address] [id number] [address] [place] [address], [place] [address] January, [facility] [address] [id number] [address] [place] [address], [place] [address] January, [facility] [address] [id number] [address] [place] [address], [place] [address] January, [facility] [address] [id number] [address] [place] [address], [place] [address] January, [facility] [address] [id number] [address] [place] [address], [place] [address] January, [facility] [address] [id number] [address] [place] [address], [place] [address] January, [facility] [address] [id number] [address] [place] [address], [place] [address] January, [facility] [address] [id number] [address] [place] [address], [place] [address] January, [facility] [address] [id number] [address] [place] [address], [place] [address] January, [facility] [address] [id number] [address] [place] [address], [place] [address] January, [facility] [address] [id number] [address] [place] [address], [place] [address] January, [facility] [address] [id number] [address] [place] [address], [place] [address] January, [facility] [address] [id number] [address] [place] [address], [place] [address] January, [facility] [address] [id number] [address] [place] [address], [place] [address] January, [facility] [address] [id number] [address] [place] [address], [place] [address] January, [facility] [address] [id number] [address] [place] [address], [place] [address] January, [facility] [address] [id number] [address] [place] [address], [place] [address] January, [facility] [address] [id number] [address] [place] [address], [place] [address] January, [facility] [address] [id number] [address] [place] [address], [place] [address] January, [facility] [address] [id number] [address] [place] [address], [place] [address] January, [facility] [address] [id number] [address] [place] [address], [place] [address] January, [facility] [address] [id number] [address] [place] [address], [place] [address] Dec, [facility] [address] [id number] [address] [place] [address], [place] [address] Dec, [facility] [address] [id number] [address] [place] [address], [place] [address] Dec, [facility] [address] [id number] [address] [place] [address], [place] [address] Dec, [facility] [address] [id number] [address] [place] [address], [place] [address] Dec, [facility] [address] [id number] [address] [place] [address], [place] [address] Nov, [facility] [address] [id number] [address] [place] [address], [place] [address] Oct, [facility] [address] [id number] [address] [place] [address], [place] [address] Oct, [facility] [address] [id number] [address] [place] [address], [place] [address] Oct, [facility] [address] [id number] [address] [place] [address], [place] [address] Oct, [facility] [address] [id number] [address] [place] [address], [place] [address] Oct, [facility] [address] [id number] [address] [place] [address], [place] [address] Sep, [facility] [address] [id number] [address] [place] [address], [place] [address] Sep, [facility] [address] [id number] [address] [place] [address], [place] [address] Sep, [facility] [address] [id number] [address] [place] [address], [place] [address] Aug, [facility] [address] [id number] [address] [place] [address], [place] [address] Aug, [facility] [address] [id number] [address] [place] [address], [place] [address] Aug, [facility] [address] [id number] [address] [place] [address], [place] [address] Aug, [facility] [address] [id number] [address] [place] [address], [place] [address] Jul, [facility] [address] [id number] [address] [place] [address], [place] [address] Jul, [facility] [address] [id number] [address] [place] [address], [place] [address] Jul, [facility] [address] [id number] [address] [place] [address], [place] [address] Jul, [facility] [address] [id number] [address] [place] [address], [place] [address] Jul, [facility] [address] [id number] [address] [place] [address], [place] [address] Jul, [facility] [address] [id number] [address] [place] [address], [place] [address] Jun, [facility] [address] [id number] [address] [place] [address], [place] [address] Jun, [facility] [address] [id number] [address] [place] [address], [place] [address] Jun, [facility] [address] [id number] [address] [place] [address], [place] [address] Jun, [facility] [address] [id number] [address] [place] [address], [place] [address] Jun, [facility] [address] [id number] [address] [place] [address], [place] [address] Jun, [facility] [address] [id number] [address] [place] [address], [place] [address] Jun, [facility] [address] [id number] [address] [place] [address], [place] [address] Jun, [facility] [address] [id number] [address] [place] [address], [place] [address] Jun, [facility] [address] [id number] [address] [place] [address], [place] [address] Jun, [facility] [address] [id number] [address] [place] [address], [place] [address] 17 May, 2012 [facility] [address] [id number] [address] [place] [address], [place] [address] 08 May, 2012 [facility] [facility] [address] [id number] [address] [place] [address], [place] [address] 06 May, 2012 [facility] [address] [id number] [address] [place] [address], [place] [address] 30 Apr, 2012 [facility] [address] [id number] [address] [place] [address], [place] [address] 29 Apr, 2012 [facility] [address] [id number] [address] [place] [address], [place] [address] 14 Apr, 2012 [facility] [address] [id number] [address] [place] [address], [place] [address] Apr, [facility] [address] [id number] [address] [place] [address], [place] [address] Apr, [facility] [address] [id number] [address] [place] [phone] Apr, [facility] [address] [id number] [address] [place] [address], [place] [address] Apr, [facility] [address] [id number] [address] [place] [address], [place] [address] Apr, [facility] [address] [id number] [address] [place] [address], [place] [address] Apr, [facility] [address] [id number] [address] [place] [address], [place] [address] Mar, [facility] [address] [id number] [address] [place] [address], [place] [address] Mar, [facility] [address] [id number] [address] [place] [address], [place] [address] Mar, [facility] [address] [id number] [address] [place] [address], [place] [address] Mar, [facility] [address] [id number] [address] [place] [address], [place] [address] Feb, [facility] [address] [id number] [address] [place] [address], [place] [address] Feb, [facility] [address] [id number] [address] [place] [address], [place] [address] Feb, [facility] [address] [id number] [address] [place] [address], [place] [address] January, [facility] [address] [id number] [address] [place] [address], [place] [address] January, [facility] [address] [id number] [address] [place] [address], [place] [address] January, [facility] [address] [id number] [address] [place] [address], [place] [address] January, [facility] [address] [id number] [address] [place] [address], [place] [address] January, [facility] [address] [id number] [address] [place] [address], [place] [address] 30 Dec, 2011 [facility] [address] [id number] [address] [place] [address], [place] [address] Dec, [facility] [address] [id number] [address] [place] [address], [place] [address] 16 Dec, 2011 [facility] [address] [id number] [address] [place] [address], [place] [address] Oct, [facility] [address] [id number] [address] [place] [address], [place] [address] Oct, [facility] [address] [id number] [address] [place] [address], [place] [address] Oct, [facility] [address] [id number] [address] [place] [address], [place] [address] Sep, [facility] [address] [id number] [address] [place] [address], [place] [address] Sep, [facility] [address] [id number] [address] [place] [address], [place] [address] Aug, [facility] [address] [id number] [address] [place] [address], [place] [address] Jul, [facility] [address] [id number] [address] [place] [address], [place] [address] Jul, [facility] [address] [id number] [address] [place] [address], [place] [address] Mar, [facility] [address] [id number] [address] [place] [address], [place] [address] 10 Aug, 2010 [facility] [address] [id number] [address] [place] [address], [place] [address] 10 Jul, 2010 [facility] [address] [id number] [address] [place] [address], [place] [address] 04 Jul, 2010 [facility] [address] [id number] [address] [place] [address], [place] [address] 04 Jul, 2010 [facility] [address] [id number] [address] [place] [address], [place] [address] 04 Jul, 2010 [facility] [address] [id number] [address] [place] [phone] 14 Jun, 2010 [facility] [address] [id number] [address] [place] [address], [place] [address] 12 Jun, 2010 [facility] [address] [id number] [address] [place] [phone] 17 Apr, 2010 [facility] [address] [id number] [address] [place] [address], [place] [address] Aug, [facility] [address] [id number] [address] [place] [phone] Jul, [facility] [address] [id number] [address] [place] [phone] Jul, [facility] [address] [id number] [address] [place] [phone] Jul, [facility] [address] [id number] [address] [place] [phone] 23 Jun, 2009 [facility] [address] [id number] [address] [place] [phone] 10 May, 2009 [facility] [address] [id number] [address] [place] [phone] 14 Dec, 2008 [facility] [address] [id number] [address] [place] [phone] Nov, [facility] [address] [id number] [address] [place] [phone] 10 Oct, 2008 [facility] [address] [id number] [address] [place] [phone] 05 Aug, 2008 [facility] [address] [id number] [address] [place] [phone] Aug, [facility] [address] [id number] [address] [place] [address] 28 Jun, 2008 IMMUNIZATIONS No Known Immunizations [...] x 3 day s 04/2012 Hospitalization History [facility]- Right wrist injury 03/29/2018
--- OUTSIDE RECORDS SUMMARY | 2020-04-09 00:06 | XMS REPORT ---
Author Author Kateryna Turner Doctor Organization [facility] Address Unknown Phone Unavailable Care Team Providers Care Table Games Dealer Name Role Phone Migration, Doctor Unavailable Unavailable PROBLEMS Type Condition ICD9-CM Code [id number] Code Onset Dates Condition S tatus SNOMED Code Problem Irregular menses N92.6 Active 801 87858 Problem Migraine with aura and without status migrainosu s, not intractable G43.109 Active 3343215 Problem Uncontrolled type 2 diabetes mellitus with hyperglycemia E11.65 Active 626787211 Problem Morbid obesity due to excess calories E66.01 Active 271694290 Problem RLS (restless legs syndrome) G25.81 A ctive 01331118 Problem Morbid obesity E66.01 Active 06895 6002 ALLERGIES No Information ENCOUNTERS Encounter Location Date Diagnosis [facility] [address] [facility] [id number] [address] [place] [phone] January, [facility] [address] [facility] [id number] [address] [place] [phone] Dec, [facility] [address] [facility] [id number] [address] [place] [phone] Dec, [facility] [address] [facility] [id number] [address] [place] [phone] Dec, Uncontrolled type 2 diabetes mellitus with hyperglycemia E11.65 [facility] [address] [facility] [id number] [address] [place] [phone] 07 Dec, 2019 [facility] [address] [id number] [address] [place] [phone] Dec, [facility] [address] [facility] [id number] [address] [place] [phone] Dec, [facility] [address] [facility] [id number] [address] [place] [phone] Nov, [facility] [address] [id number] [address] [place] [phone] 28 Nov, 2019 [facility] [address] [id number] [address] [place] [phone] 03 Nov, 2019 [facility] [address] [facility] [id number] [address] [place] [id number] 02 Nov, 2019 RLS (restless legs syndrome) G25.81 [facility] [address] [id number] [address] [place] [phone] 15 Oct, 2019 [facility] [address] [facility] [id number] [address] [place] [phone] 09 Oct, 2019 Influenza J11.1 [facility] [address] [facility] [id number] [address] [place] [phone] 16 Sep, 2019 [facility] [address] [facility] [id number] [address] [place] [phone] 14 Sep, 2019 [facility] [address] [facility] [id number] [address] [place] [id number] 14 Sep, 2019 [facility] [address] [id number] [address] [place] [phone] 13 Sep, 2019 [facility] [address] [facility] [id number] [address] [place] [phone] 10 Sep, 2019 Pneumonia of left lower lobe due to infectious organism J18.9 and Migraine with aura and without status migrainosus, not intractable G43.109 [facility] [address] [facility] [id number] [address] [place] [phone] 10 Sep, 2019 [facility] [address] [facility] [id number] [address] [place] [id number] 10 Sep, 2019 [facility] [address] [facility] [id number] [address] [place] [phone] 08 Sep, 2019 [facility] [address] [facility] [id number] [address] [place] [phone] 08 Sep, 2019 [facility] [address] [id number] [address] [place] [id number] 08 Sep, 2019 Pneumonia of left lower lobe due to infectious organism J18.9 and Migraine with aura and without status migrainosus, not intractable G43.109 [facility] [address] [id number] [address] [place] [id number] Aug, Irregular menses N92.6 ; Wel l woman exam Z01.419 ; Pelvic cramping R10.2 and Left breast lump N63.20 [facility] [address] [id number] [address] [place] [id number] Aug, [facility] [address] [facility] [id number] [address] [place] [id number] 17 Aug, 2019 Well woman exam Z01.419 ; Le ft breast lump N63.20 ; Irregular menses N92.6 ; Encounter for immunization Z23 ; Pelvic cramping R10.2 and Screening for cervical cancer Z12.4 [facility] [address] [facility] [id number] [address] [place] [phone] Aug, [facility] [address] [id number] [address] [place] [phone] Aug, [facility] [address] [facility] [id number] [address] [place] [phone] Aug, [facility] [address] [id number] [address] [place] [phone] Jul, [facility] [address] [facility] [id number] [address] [place] [phone] Jun, [facility] [address] [id number] [address] [place] [phone] Jun, [facility] [address] [facility] [id number] [address] [place] [phone] 14 Jun, 2019 [facility] [address] [facility] [id number] [address] [place] [id number] Jun, BMI 50.0-59.9, adult Z68.43 [facility] [address] [place] [id number] [address] [place] [phone] Jun, [facility] [address] [place] [id number] [place] [phone] May, Acute non-recurrent sinusiti s, unspecified location J01.90 ; Diarrhea, unspecified R19.7 ; Vomiting, unspecified R11.10 and Morbid obesity E66.01 [place] [address] [id number] Apr, [place] [address] [id number] Apr, Anemia due to other cause, n ot classified D64.89 and D-dimer, elevated R79.89 [place] [address] [id number] Apr, [place] [address] [id number] Apr, [place] [address] [id number] Mar, Anemia due to other cause, n ot classified D64.89 and D-dimer, elevated R79.89 [place] [address] [id number] Mar, Leg edema, right R60.0 ; Hig h risk medication use Z79.899 and Morbid obesity E66.01 [facility] [address] [place] [id number] [address] [place] [phone] Mar, BMI 50.0-59.9, adult Z68.43 [place] [address] [id number] Mar, [place] [address] [id number] January, Uncontrolled type 2 diabetes mellitus with hyperglycemia E11.65 ; RLS (restless legs syndrome) G25.81 and Morbid obesity E66.01 [facility] [address] [id number] [address] [place] [id number] 15 Oct, 2018 Lipoma of right lower extrem ity D17.23 [facility] [address] [id number] [address] [place] [id number] 05 Oct, 2018 Lipoma of right lower extrem ity D17.23 [facility] [address] [id number] [address] [place] [phone] Sep, [facility] [address] [id number] [address] [place] [phone] Sep, [facility] [address] [id number] [address] [place] [phone] Sep, [facility] [address] [facility] [id number] [address] [place] [phone] Sep, [facility] [address] [facility] [id number] [address] [place] [phone] Sep, [facility] [address] [facility] [id number] [address] [place] [id number] Aug, Uncontrolled type 2 diabetes mellitus with hyperglycemia E11.65 ; Morbid obesity due to excess calories E66.01 ; Lipoma of torso D17.1 and BMI 50.0-59.9, adult Z68.43 [facility] [address] [facility] [id number] [address] [place] [id number] Jun, Encounter for immunization Z 23 [facility] [address] [id number] [address] [place] [phone] Jul, [facility] [address] [facility] [id number] [address] [place] [phone] Jun, Encounter for immunization Z 23 [facility] [address] [id number] [address] [place] [phone] May, [facility] [address] [facility] [id number] [address] [place] [phone] Jun, Encounter for immunization Z 23 [facility] [address] [id number] [address] [place] [address], [place] [address] 29 May, 2015 [facility] [address] [id number] [address] [place] [address], [place] [phone] May, [facility] [address] [id number] [address] [place] [address], [place] [address] Apr, [facility] [address] [id number] [address] [place] [address], [place] [id number] Feb, [facility] [address] [id number] [address] [place] [address], [place] [phone] Feb, [facility] [address] [id number] [address] [place] [address], [place] [phone] Feb, [facility] [address] [id number] [address] [place] [address], [place] [address] January, [facility] [address] [id number] [address] [place] [address], [place] [phone] January, [facility] [address] [id number] [address] [place] [address], [place] [address] Dec, [facility] [address] [id number] [address] [place] [address], [place] [address] Dec, [facility] [address] [id number] [address] [place] [phone] Nov, [facility] [address] [id number] [address] [place] [phone] Nov, [facility] [address] [id number] [address] [place] [phone] Nov, [facility] [address] [id number] [address] [place] [phone] Nov, [facility] [address] [id number] [address] [place] [address], [place] [address] Nov, [facility] [address] [id number] [address] [place] [address], [place] [address] Nov, [facility] [address] [id number] [address] [place] [address], [place] [address] Nov, [facility] [address] [id number] [address] [place] [address], [place] [address] 18 Oct, 2014 [facility] [address] [id number] [address] [place] [address], [place] [id number] Oct, [facility] [address] [id number] [address] [place] [address], [place] [id number] Oct, [facility] [address] [id number] [address] [place] [address], [place] [address] Oct, [facility] [address] [id number] [address] [place] [address], [place] [address] Oct, [facility] [address] [id number] [address] [place] [address], [place] [phone] Sep, [facility] [address] [id number] [address] [place] [address], [place] [phone] Sep, [facility] [address] [id number] [address] [place] [address], [place] [address] Sep, [facility] [address] [id number] [address] [place] [address], [place] [address] Sep, [facility] [address] [id number] [address] [place] [address], [place] [address] Sep, [facility] [address] [id number] [address] [place] [address], [place] [id number] Sep, [facility] [address] [id number] [address] [place] [address], [place] [id number] Sep, [facility] [address] [id number] [address] [place] [address], [place] [phone] Sep, [facility] [address] [id number] [address] [place] [address], [place] [address] Sep, [facility] [address] [id number] [address] [place] [address], [place] [address] Sep, [facility] [address] [id number] [address] [place] [address], [place] [address] Aug, [facility] [address] [id number] [address] [place] [address], [place] [address] Aug, [facility] [address] [id number] [address] [place] [address], [place] [address] Aug, [facility] [address] [id number] [address] [place] [address], [place] [id number] Aug, [facility] [address] [id number] [address] [place] [address], [place] [address] Aug, [facility] [address] [id number] [address] [place] [address], [place] [address] Aug, [facility] [address] [id number] [address] [place] [address], [place] [address] Aug, [facility] [address] [id number] [address] [place] [address], [place] [address] Aug, [facility] [address] [id number] [address] [place] [address], [place] [address] Aug, [facility] [address] [id number] [address] [place] [address], [place] [address] Aug, [facility] [address] [id number] [address] [place] [address], [place] [address] Aug, [facility] [address] [id number] [address] [place] [address], [place] [address] Aug, [facility] [address] [id number] [address] [place] [address], [place] [address] Aug, [facility] [address] [id number] [address] [place] [address], [place] [address] Aug, [facility] [address] [id number] [address] [place] [address], [place] [id number] 17 Aug, 2014 [facility] [address] [id number] [address] [place] [address], [place] [address] 17 Aug, 2014 [facility] [address] [id number] [address] [place] [address], [place] [address] 16 Aug, 2014 [facility] [address] [id number] [address] [place] [address], [place] [address] 16 Aug, 2014 [facility] [address] [id number] [address] [place] [address], [place] [address] Aug, [facility] [address] [id number] [address] [place] [address], [place] [address] Aug, [facility] [address] [id number] [address] [place] [address], [place] [address] Aug, [facility] [address] [id number] [address] [place] [address], [place] [address] Aug, [facility] [address] [id number] [address] [place] [address], [place] [address] 05 Aug, 2014 [facility] [address] [id number] [address] [place] [address], [place] [address] 05 Aug, 2014 [facility] [address] [id number] [address] [place] [address], [place] [id number] Jul, [facility] [address] [id number] [address] [place] [address], [place] [id number] Jul, [facility] [address] [id number] [address] [place] [address], [place] [address] Jun, [facility] [address] [id number] [address] [place] [address], [place] [address] Jun, [facility] [address] [id number] [address] [place] [address], [place] [address] Jun, [facility] [address] [id number] [address] [place] [address], [place] [address] Jun, [facility] [address] [id number] [address] [place] [address], [place] [address] 15 Jun, 2014 [facility] [address] [id number] [address] [place] [address], [place] [address] 15 Jun, 2014 [facility] [address] [id number] [address] [place] [address], [place] [address] 14 Jun, 2014 [facility] [address] [id number] [address] [place] [address], [place] [address] 14 Jun, 2014 [facility] [address] [id number] [address] [place] [address], [place] [address] 13 Jun, 2014 [facility] [address] [id number] [address] [place] [address], [place] [address] 13 Jun, 2014 [facility] [address] [id number] [address] [place] [address], [place] [address] 13 Jun, 2014 [facility] [address] [id number] [address] [place] [address], [place] [address] Jun, [facility] [address] [id number] [address] [place] [address], [place] [address] 06 Jun, 2014 [facility] [address] [id number] [address] [place] [address], [place] [address] 06 Jun, 2014 [facility] [address] [id number] [address] [place] [id number] 26 May, 2013 [facility] [address] [id number] [address] [place] [id number] 26 May, 2013 [facility] [address] [id number] [address] [place] [address], [place] [address] 22 May, 2013 [facility] [address] [id number] [address] [place] [address], [place] [address] 22 May, 2013 [facility] [address] [id number] [address] [place] [address], [place] [address] 04 May, 2013 [facility] [address] [id number] [address] [place] [phone] May, [facility] [address] [id number] [address] [place] [address], [place] [address] May, [facility] [address] [id number] [address] [place] [address], [place] [address] May, [facility] [address] [id number] [address] [place] [address], [place] [address] Apr, [facility] [address] [id number] [address] [place] [address], [place] [address] Apr, [facility] [address] [id number] [address] [place] [address], [place] [address] Apr, [facility] [address] [id number] [address] [place] [address], [place] [address] Apr, [facility] [address] [id number] [address] [place] [address], [place] [address] Apr, [facility] [address] [id number] [address] [place] [address], [place] [address] Apr, [facility] [address] [id number] [address] [place] [address], [place] [address] Apr, [facility] [address] [id number] [address] [place] [address], [place] [id number] Apr, [facility] [address] [id number] [address] [place] [address], [place] [id number] Apr, [facility] [address] [id number] [address] [place] [address], [place] [id number] Mar, [facility] [address] [id number] [address] [place] [address], [place] [id number] Mar, [facility] [address] [id number] [address] [place] [address], [place] [id number] Mar, [facility] [address] [id number] [address] [place] [address], [place] [id number] Feb, [facility] [address] [id number] [facility] [place] [id number] 30 Feb, 2014 [facility] [address] [id number] [facility] [place] [id number] Feb, [facility] [address] [id number] [facility] [place] [id number] Feb, [facility] [address] [id number] [facility] [place] [id number] Feb, [facility] [address] [id number] [facility] [place] [id number] 17 Feb, 2014 [facility] [address] [id number] [address] [place] [address], [place] [id number] Feb, [facility] [address] [id number] [address] [place] [address], [place] [id number] Feb, [facility] [address] [id number] [address] [place] [address], [place] [id number] Feb, [facility] [address] [id number] [address] [place] [address], [place] [id number] Feb, [facility] [address] [id number] [address] [place] [address], [place] [id number] Feb, [facility] [address] [id number] [address] [place] [address], [place] [id number] Feb, [facility] [address] [id number] [address] [place] [address], [place] [id number] Feb, [facility] [address] [id number] [address] [place] [address], [place] [id number] Feb, [facility] [address] [id number] [address] [place] [address], [place] [id number] Feb, [facility] [address] [id number] [address] [place] [address], [place] [id number] Feb, [facility] [address] [id number] [address] [place] [address], [place] [id number] January, [facility] [address] [id number] [facility] [place] [id number] January, [facility] [address] [id number] [address] [place] [address], [place] [id number] January, [facility] [address] [id number] [address] [place] [address], [place] [id number] January, [facility] [address] [id number] [address] [place] [address], [place] [id number] January, [facility] [address] [id number] [address] [place] [address], [place] [id number] January, [facility] [address] [id number] [address] [place] [address], [place] [id number] January, [facility] [address] [id number] [address] [place] [address], [place] [id number] January, [facility] [address] [id number] [address] [place] [address], [place] [id number] January, [facility] [address] [id number] [address] [place] [address], [place] [id number] January, [facility] [address] [id number] [address] [place] [address], [place] [id number] January, [facility] [address] [id number] [address] [place] [address], [place] [id number] January, [facility] [address] [id number] [address] [place] [address], [place] [id number] January, [facility] [address] [id number] [address] [place] [address], [place] [id number] January, [facility] [address] [id number] [address] [place] [address], [place] [id number] January, [facility] [address] [id number] [address] [place] [address], [place] [address] January, [facility] [address] [id number] [address] [place] [address], [place] [address] January, [facility] [address] [id number] [address] [place] [address], [place] [address] January, [facility] [address] [id number] [address] [place] [address], [place] [address] January, [facility] [address] [id number] [address] [place] [address], [place] [address] January, [facility] [address] [id number] [address] [place] [address], [place] [address] January, [facility] [address] [id number] [address] [place] [address], [place] [address] January, [facility] [address] [id number] [address] [place] [address], [place] [address] January, [facility] [address] [id number] [address] [place] [address], [place] [address] January, [facility] [address] [id number] [address] [place] [address], [place] [address] January, [facility] [address] [id number] [address] [place] [address], [place] [id number] January, [facility] [address] [id number] [address] [place] [address], [place] [address] Dec, [facility] [address] [id number] [address] [place] [address], [place] [address] Dec, [facility] [address] [id number] [address] [place] [address], [place] [address] Dec, [facility] [address] [id number] [address] [place] [address], [place] [id number] Dec, [facility] [address] [id number] [address] [place] [address], [place] [id number] Dec, [facility] [address] [id number] [address] [place] [address], [place] [address] Dec, [facility] [address] [id number] [facility] [place] [address] Dec, [facility] [address] [id number] [address] [place] [address], [place] [id number] Dec, [facility] [address] [id number] [address] [place] [address], [place] [address] Dec, [facility] [address] [id number] [address] [place] [address], [place] [id number] Dec, [facility] [address] [id number] [address] [place] [address], [place] [address] Dec, [facility] [address] [id number] [address] [place] [address], [place] [id number] Dec, [facility] [address] [id number] [address] [place] [address], [place] [address] Dec, [facility] [address] [id number] [address] [place] [address], [place] [id number] Dec, [facility] [address] [id number] [address] [place] [address], [place] [id number] Dec, [facility] [address] [id number] [address] [place] [address], [place] [address] Dec, [facility] [address] [id number] [address] [place] [address], [place] [id number] Dec, [facility] [address] [id number] [address] [place] [address], [place] [address] Dec, [facility] [address] [id number] [address] [place] [address], [place] [address] Dec, [facility] [address] [id number] [address] [place] [address], [place] [address] Dec, [facility] [address] [id number] [address] [place] [address], [place] [address] Dec, [facility] [address] [id number] [address] [place] [address], [place] [id number] 07 Dec, 2013 [facility] [address] [id number] [facility] [place] [address] 31 Nov, 2013 [facility] [address] [id number] [address] [place] [address], [place] [id number] 31 Nov, 2013 [facility] [address] [id number] [facility] [place] [address] Nov, [facility] [address] [id number] [address] [place] [address], [place] [address] Nov, [facility] [address] [id number] [facility] [place] [id number] 24 Nov, 2013 [facility] [address] [id number] [address] [place] [address], [place] [id number] 24 Nov, 2013 [facility] [address] [id number] [address] [place] [address], [place] [address] Nov, [facility] [address] [id number] [address] [place] [address], [place] [address] 22 Nov, 2013 [facility] [address] [id number] [address] [place] [address], [place] [address] 18 Nov, 2013 [facility] [address] [id number] [address] [place] [address], [place] [id number] 18 Nov, 2013 [facility] [address] [id number] [address] [place] [address], [place] [id number] 18 Nov, 2013 [facility] [address] [id number] [address] [place] [address], [place] [address] 18 Nov, 2013 [facility] [address] [id number] [address] [place] [address], [place] [id number] 14 Nov, 2013 [facility] [address] [id number] [address] [place] [address], [place] [address] 14 Nov, 2013 [facility] [address] [id number] [address] [place] [address], [place] [address] 06 Nov, 2013 [facility] [address] [id number] [address] [place] [address], [place] [address] Nov, [facility] [address] [id number] [address] [place] [address], [place] [id number] Oct, [facility] [address] [id number] [address] [place] [address], [place] [address] Oct, [facility] [address] [id number] [address] [place] [address], [place] [address] Oct, [facility] [address] [id number] [address] [place] [address], [place] [address] Oct, [facility] [address] [id number] [address] [place] [address], [place] [address] Oct, [facility] [address] [id number] [address] [place] [address], [place] [address] Oct, [facility] [address] [id number] [address] [place] [address], [place] [address] Oct, [facility] [address] [id number] [address] [place] [address], [place] [address] Oct, [facility] [address] [id number] [address] [place] [address], [place] [address] Oct, [facility] [address] [id number] [address] [place] [address], [place] [address] Oct, [facility] [address] [id number] [address] [place] [id number] Oct, [facility] [address] [id number] [address] [place] [address], [place] [address] Oct, [facility] [address] [id number] [address] [place] [address], [place] [address] Oct, [facility] [address] [id number] [address] [place] [address], [place] [address] Oct, [facility] [address] [id number] [address] [place] [id number] Oct, [facility] [address] [id number] [address] [place] [address], [place] [address] Sep, [facility] [address] [id number] [address] [place] [address], [place] [address] Sep, [facility] [address] [id number] [address] [place] [address], [place] [address] Sep, [facility] [address] [id number] [address] [place] [address], [place] [address] Sep, [facility] [address] [id number] [address] [place] [address], [place] [address] Sep, [facility] [address] [id number] [address] [place] [address], [place] [address] Sep, [facility] [address] [id number] [address] [place] [address], [place] [address] Sep, [facility] [address] [id number] [address] [place] [address], [place] [address] Sep, [facility] [address] [id number] [address] [place] [address], [place] [address] Sep, [facility] [address] [id number] [address] [place] [address], [place] [id number] Sep, [facility] [address] [id number] [address] [place] [address], [place] [address] Sep, [facility] [address] [id number] [address] [place] [address], [place] [id number] Sep, [facility] [address] [id number] [address] [place] [address], [place] [address] Sep, [facility] [address] [id number] [address] [place] [address], [place] [address] Aug, [facility] [address] [id number] [address] [place] [address], [place] [address] Aug, [facility] [address] [id number] [address] [place] [address], [place] [id number] 24 Aug, 2013 [facility] [address] [id number] [address] [place] [address], [place] [address] 24 Aug, 2013 [facility] [address] [id number] [address] [place] [address], [place] [address] 17 Aug, 2013 [facility] [address] [id number] [address] [place] [address], [place] [id number] 17 Aug, 2013 [facility] [address] [id number] [address] [place] [address], [place] [id number] 16 Aug, 2013 [facility] [address] [id number] [address] [place] [address], [place] [address] 16 Aug, 2013 [facility] [address] [id number] [address] [place] [address], [place] [id number] Aug, [facility] [address] [id number] [address] [place] [address], [place] [address] Aug, [facility] [address] [id number] [address] [place] [address], [place] [address] Aug, [facility] [address] [id number] [address] [place] [address], [place] [address] Aug, [facility] [address] [id number] [address] [place] [address], [place] [address] Aug, [facility] [address] [id number] [address] [place] [address], [place] [address] Aug, [facility] [address] [id number] [address] [place] [address], [place] [address] Jul, [facility] [address] [id number] [address] [place] [address], [place] [id number] Jul, [facility] [address] [id number] [address] [place] [address], [place] [address] 18 Jul, 2013 [facility] [address] [id number] [address] [place] [address], [place] [id number] 18 Jul, 2013 [facility] [address] [id number] [address] [place] [address], [place] [id number] 14 Jul, 2013 [facility] [address] [id number] [address] [place] [address], [place] [address] 14 Jul, 2013 [facility] [address] [id number] [address] [place] [address], [place] [address] 14 Jul, 2013 [facility] [address] [id number] [address] [place] [id number] 14 Jul, 2013 [facility] [address] [id number] [address] [place] [address], [place] [address] 07 Jul, 2013 [facility] [address] [id number] [address] [place] [id number] 07 Jul, 2013 [facility] [address] [id number] [address] [place] [address], [place] [id number] 06 Jul, 2013 [facility] [address] [id number] [address] [place] [id number] 06 Jul, 2013 [facility] [address] [id number] [address] [place] [id number] 05 Jul, 2013 [facility] [address] [id number] [address] [place] [id number] 05 Jul, 2013 [facility] [address] [id number] [address] [place] [id number] 23 Jun, 2013 [facility] [address] [id number] [address] [place] [id number] 23 Jun, 2013 [facility] [address] [id number] [address] [place] [id number] 15 Jun, 2013 [facility] [address] [id number] [address] [place] [id number] 15 Jun, 2013 [facility] [address] [id number] [address] [place] [id number] 14 Jun, 2013 [facility] [address] [id number] [facility] [place] [id number] 24 Sep, 2012 [facility] [address] [id number] [address] [place] [address], [place] [id number] 20 Sep, 2012 [facility] [address] [id number] [address] [place] [address], [place] [id number] 20 Sep, 2012 [facility] [address] [id number] [address] [place] [address], [place] [id number] 20 Sep, 2012 [facility] [address] [id number] [address] [place] [address], [place] [id number] 19 Sep, 2012 [facility] [address] [id number] [address] [place] [address], [place] [id number] 13 May, 2012 [facility] [address] [id number] [address] [place] [address], [place] [id number] 12 May, 2012 [facility] [address] [id number] [address] [place] [address], [place] [id number] 12 May, 2012 [facility] [address] [id number] [address] [place] [address], [place] [id number] 11 Sep, 2012 [facility] [address] [id number] [address] [place] [address], [place] [id number] 11 May, 2012 [facility] [address] [id number] [address] [place] [address], [place] [id number] 11 Sep, 2012 [facility] [address] [id number] [address] [place] [address], [place] [id number] 09 Sep, 2012 [facility] [address] [id number] [address] [place] [address], [place] [id number] 05 Sep, 2012 [facility] [address] [id number] [address] [place] [address], [place] [id number] 04 Sep, 2012 [facility] [address] [id number] [address] [place] [address], [place] [id number] 03 Sep, 2012 [facility] [address] [id number] [address] [place] [address], [place] [id number] Apr, [facility] [address] [id number] [address] [place] [address], [place] [address] Apr, [facility] [address] [id number] [address] [place] [address], [place] [id number] Apr, [facility] [address] [id number] [address] [place] [address], [place] [address] Apr, [facility] [address] [id number] [address] [place] [address], [place] [id number] Apr, [facility] [address] [id number] [address] [place] [address], [place] [address] Apr, [facility] [address] [id number] [address] [place] [address], [place] [id number] Apr, [facility] [address] [id number] [address] [place] [address], [place] [id number] Apr, [facility] [address] [id number] [address] [place] [address], [place] [id number] Apr, [facility] [address] [id number] [address] [place] [address], [place] [id number] Mar, [facility] [address] [id number] [address] [place] [address], [place] [address] Mar, [facility] [address] [id number] [address] [place] [address], [place] [address] Mar, [facility] [address] [id number] [address] [place] [address], [place] [id number] Mar, [facility] [address] [id number] [address] [place] [address], [place] [id number] Mar, [facility] [address] [id number] [address] [place] [address], [place] [address] Mar, [facility] [address] [id number] [address] [place] [address], [place] [id number] Mar, [facility] [address] [id number] [address] [place] [address], [place] [id number] Mar, [facility] [address] [id number] [address] [place] [address], [place] [address] Mar, [facility] [address] [id number] [address] [place] [address], [place] [address] Mar, [facility] [address] [id number] [address] [place] [address], [place] [id number] Mar, [facility] [address] [id number] [address] [place] [address], [place] [address] Feb, [facility] [address] [id number] [address] [place] [address], [place] [id number] Feb, [facility] [address] [id number] [address] [place] [address], [place] [id number] Feb, [facility] [address] [id number] [address] [place] [address], [place] [id number] Feb, [facility] [address] [id number] [address] [place] [address], [place] [id number] Feb, [facility] [address] [id number] [address] [place] [address], [place] [id number] Feb, [facility] [address] [id number] [address] [place] [address], [place] [address] Feb, [facility] [address] [id number] [address] [place] [address], [place] [address] Feb, [facility] [address] [id number] [address] [place] [address], [place] [id number] Feb, [facility] [address] [id number] [address] [place] [address], [place] [id number] January, [facility] [address] [id number] [address] [place] [address], [place] [id number] January, [facility] [address] [id number] [address] [place] [address], [place] [id number] January, [facility] [address] [id number] [address] [place] [address], [place] [address] January, [facility] [address] [id number] [address] [place] [address], [place] [id number] January, [facility] [address] [id number] [address] [place] [address], [place] [address] January, [facility] [address] [id number] [address] [place] [address], [place] [phone] January, [facility] [address] [id number] [address] [place] [address], [place] [address] January, [facility] [address] [id number] [address] [place] [address], [place] [id number] January, [facility] [address] [id number] [address] [place] [address], [place] [id number] January, [facility] [address] [id number] [address] [place] [address], [place] [id number] January, [facility] [address] [id number] [address] [place] [address], [place] [id number] January, [facility] [address] [id number] [address] [place] [address], [place] [id number] January, [facility] [address] [id number] [address] [place] [address], [place] [id number] January, [facility] [address] [id number] [address] [place] [address], [place] [id number] January, [facility] [address] [id number] [address] [place] [address], [place] [id number] January, [facility] [address] [id number] [address] [place] [address], [place] [address] January, [facility] [address] [id number] [address] [place] [address], [place] [id number] January, [facility] [address] [id number] [address] [place] [address], [place] [id number] January, [facility] [address] [id number] [address] [place] [address], [place] [id number] January, [facility] [address] [id number] [address] [place] [address], [place] [id number] January, [facility] [address] [id number] [address] [place] [address], [place] [id number] January, [facility] [address] [id number] [address] [place] [address], [place] [id number] January, [facility] [address] [id number] [address] [place] [address], [place] [id number] Dec, [facility] [address] [id number] [address] [place] [address], [place] [id number] Dec, [facility] [address] [id number] [address] [place] [address], [place] [id number] Dec, [facility] [address] [id number] [address] [place] [address], [place] [id number] Dec, [facility] [address] [id number] [address] [place] [address], [place] [id number] Dec, [facility] [address] [id number] [address] [place] [address], [place] [id number] Nov, [facility] [address] [id number] [address] [place] [address], [place] [id number] Oct, [facility] [address] [id number] [address] [place] [address], [place] [id number] Oct, [facility] [address] [id number] [address] [place] [address], [place] [id number] Oct, [facility] [address] [id number] [address] [place] [address], [place] [id number] Oct, [facility] [address] [id number] [address] [place] [address], [place] [id number] Oct, [facility] [address] [id number] [address] [place] [address], [place] [id number] Sep, [facility] [address] [id number] [address] [place] [address], [place] [id number] Sep, [facility] [address] [id number] [address] [place] [address], [place] [id number] Sep, [facility] [address] [id number] [address] [place] [address], [place] [id number] Aug, [facility] [address] [id number] [address] [place] [address], [place] [id number] Aug, [facility] [address] [id number] [address] [place] [address], [place] [id number] Aug, [facility] [address] [id number] [address] [place] [address], [place] [id number] Aug, [facility] [address] [id number] [address] [place] [address], [place] [id number] Jul, [facility] [address] [id number] [address] [place] [address], [place] [id number] Jul, [facility] [address] [id number] [address] [place] [address], [place] [id number] Jul, [facility] [address] [id number] [address] [place] [address], [place] [id number] Jul, [facility] [address] [id number] [address] [place] [address], [place] [id number] Jul, [facility] [address] [id number] [address] [place] [address], [place] [id number] Jul, [facility] [address] [id number] [address] [place] [address], [place] [id number] Jun, [facility] [address] [id number] [address] [place] [address], [place] [id number] Jun, [facility] [address] [id number] [address] [place] [address], [place] [address] Jun, [facility] [address] [id number] [address] [place] [address], [place] [address] Jun, [facility] [address] [id number] [address] [place] [address], [place] [address] Jun, [facility] [address] [id number] [address] [place] [address], [place] [id number] Jun, [facility] [address] [id number] [address] [place] [address], [place] [address] Jun, [facility] [address] [id number] [address] [place] [address], [place] [address] Jun, [facility] [address] [id number] [address] [place] [address], [place] [address] Jun, [facility] [address] [id number] [address] [place] [address], [place] [address] Jun, [facility] [address] [id number] [address] [place] [address], [place] [id number] 17 May, 2012 [facility] [address] [id number] [address] [place] [address], [place] [id number] 08 May, 2012 [facility] [address] [id number] [address] [place] [address], [place] [id number] 06 May, 2012 [facility] [address] [id number] [address] [place] [address], [place] [id number] 30 Apr, 2012 [facility] [address] [id number] [address] [place] [address], [place] [id number] 29 Apr, 2012 [facility] [address] [id number] [address] [place] [address], [place] [id number] 14 Apr, 2012 [facility] [address] [id number] [address] [place] [address], [place] [id number] Apr, [facility] [address] [id number] [address] [place] [address], [place] [id number] Apr, [facility] [address] [id number] [address] [place] [id number] Apr, [facility] [address] [id number] [address] [place] [address], [place] [id number] Apr, [facility] [address] [id number] [address] [place] [address], [place] [address] Apr, [facility] [address] [id number] [address] [place] [address], [place] [id number] Apr, [facility] [address] [id number] [address] [place] [address], [place] [id number] Mar, [facility] [address] [id number] [address] [place] [address], [place] [id number] Mar, [facility] [address] [id number] [address] [place] [address], [place] [id number] Mar, [facility] [address] [id number] [address] [place] [address], [place] [address] Mar, [facility] [address] [id number] [address] [place] [address], [place] [id number] Feb, [facility] [address] [id number] [address] [place] [address], [place] [id number] Feb, [facility] [address] [id number] [address] [place] [address], [place] [id number] Feb, [facility] [address] [id number] [address] [place] [address], [place] [id number] January, [facility] [address] [id number] [address] [place] [address], [place] [address] January, [facility] [address] [id number] [address] [place] [address], [place] [address] January, [facility] [address] [id number] [address] [place] [address], [place] [address] January, [facility] [address] [id number] [address] [place] [address], [place] [address] January, [facility] [address] [id number] [address] [place] [address], [place] [id number] 30 Dec, 2011 [facility] [address] [id number] [address] [place] [address], [place] [id number] Dec, [facility] [address] [id number] [address] [place] [address], [place] [address] 16 Dec, 2011 [facility] [address] [id number] [address] [place] [address], [place] [address] Oct, [facility] [address] [id number] [address] [place] [address], [place] [address] Oct, [facility] [address] [id number] [address] [place] [address], [place] [address] Oct, [facility] [address] [id number] [address] [place] [address], [place] [id number] Sep, [facility] [address] [id number] [address] [place] [address], [place] [id number] Sep, [facility] [address] [id number] [address] [place] [address], [place] [id number] Aug, [facility] [address] [id number] [address] [place] [address], [place] [id number] Jul, [facility] [address] [id number] [address] [place] [address], [place] [address] Jul, [facility] [address] [id number] [address] [place] [address], [place] [address] Mar, [facility] [address] [id number] [address] [place] [address], [place] [id number] 10 Aug, 2010 [facility] [address] [id number] [address] [place] [address], [place] [address] 10 Jul, 2010 [facility] [address] [id number] [address] [place] [address], [place] [id number] 04 Jul, 2010 [facility] [address] [id number] [address] [place] [address], [place] [id number] 04 Jul, 2010 [facility] [address] [id number] [address] [place] [address], [place] [address] 04 Jul, 2010 [facility] [address] [id number] [address] [place] [id number] 14 Jun, 2010 [facility] [address] [id number] [address] [place] [address], [place] [id number] 12 Jun, 2010 [facility] [address] [id number] [address] [place] [id number] 17 Apr, 2010 [facility] [address] [id number] [address] [place] [address], [place] [id number] Aug, [facility] [address] [id number] [address] [place] [id number] Jul, [facility] [address] [id number] [address] [place] [id number] Jul, [facility] [address] [id number] [address] [place] [id number] Jul, [facility] [address] [id number] [address] [place] [id number] 23 Jun, 2009 [facility] [address] [id number] [address] [place] [id number] 10 May, 2009 [facility] [address] [id number] [address] [place] [id number] 14 Dec, 2008 [facility] [address] [id number] [address] [place] [id number] Nov, [facility] [address] [id number] [address] [place] [id number] 10 Oct, 2008 [facility] [address] [id number] [address] [place] [id number] 05 Aug, 2008 [facility] [address] [id number] [address] [place] [id number] Aug, [facility] [address] [id number] [address] [place] [address] 28 Jun, 2008 IMMUNIZATIONS No Known Immunizations [...] x 3 day s 04/2012 Hospitalization History [facility] [place]- Right wrist injury 03/29/2018
--- OUTSIDE RECORDS SUMMARY | 2020-04-09 00:07 | XMS REPORT ---
Author Author Kateryna Turner Doctor Organization [facility] Address Unknown Phone Unavailable Care Team Providers Care Water Pollution Control Technician Name Role Phone Migration, Doctor Unavailable Unavailable PROBLEMS Type Condition ICD9-CM Code HRK73-LF Code Onset Dates Condition S tatus SNOMED Code Problem Irregular menses N92.6 Active 801 91138 Problem Migraine with aura and without status migrainosu s, not intractable G43.109 Active 7800955 Problem Uncontrolled type 2 diabetes mellitus with hyperglycemia E11.65 Active 942752840 Problem Morbid obesity due to excess calories E66.01 Active 756613180 Problem RLS (restless legs syndrome) G25.81 A ctive 62174791 Problem Morbid obesity E66.01 Active 79467 6002 ALLERGIES No Information ENCOUNTERS Encounter Location Date Diagnosis [facility] [address] [facility] [id number] [address] [place] [phone] January, [facility] [address] [facility] [id number] [address] [place] [address] Dec, [facility] [address] [facility] [id number] [address] [place] [address] Dec, [facility] [address] [facility] [id number] [address] [place] [address] Dec, Uncontrolled type 2 diabetes mellitus with hyperglycemia E11.65 [facility] [address] [facility] [id number] [address] [place] [id number] 07 Dec, 2019 [facility] [address] [id number] [address] [place] [id number] Dec, [facility] [address] [facility] [id number] [address] [place] [phone] Dec, [facility] [address] [facility] [id number] [address] [place] [address] Nov, [facility] [address] [id number] [address] [place] [id number] 28 Nov, 2019 [facility] [address] [id number] [address] [place] [id number] 03 Nov, 2019 [facility] [address] [facility] [id number] [address] [place] [id number] 02 Nov, 2019 RLS (restless legs syndrome) G25.81 [facility] [address] [id number] [address] [place] [id number] 15 Oct, 2019 [facility] [address] [facility] [id number] [address] [place] [phone] 09 Oct, 2019 Influenza J11.1 [facility] [address] [facility] [id number] [address] [place] [id number] 16 Sep, 2019 [facility] [address] [facility] [id number] [address] [place] [address] 14 Sep, 2019 [facility] [address] [facility] [id number] [address] [place] [id number] 14 Sep, 2019 [facility] [address] [id number] [address] [place] [id number] 13 Sep, 2019 [facility] [address] [facility] [id number] [address] [place] [id number] 10 Sep, 2019 Pneumonia of left lower lobe due to infectious organism J18.9 and Migraine with aura and without status migrainosus, not intractable G43.109 [facility] [address] [facility] [id number] [address] [place] [id number] 10 Sep, 2019 [facility] [address] [facility] [id number] [address] [place] [id number] 10 Sep, 2019 [facility] [address] [facility] [id number] [address] [place] [id number] 08 Sep, 2019 [facility] [address] [facility] [id number] [address] [place] [id number] 08 Sep, 2019 [facility] [address] [id number] [address] [place] [id number] 08 Sep, 2019 Pneumonia of left lower lobe due to infectious organism J18.9 and Migraine with aura and without status migrainosus, not intractable G43.109 [facility] [address] [id number] [address] [place] [address] Aug, Irregular menses N92.6 ; Wel l woman exam Z01.419 ; Pelvic cramping R10.2 and Left breast lump N63.20 [facility] [address] [id number] [address] [place] [address] Aug, [facility] [address] [facility] [id number] [address] [place] [id number] 17 Aug, 2019 Well woman exam Z01.419 ; Le ft breast lump N63.20 ; Irregular menses N92.6 ; Encounter for immunization Z23 ; Pelvic cramping R10.2 and Screening for cervical cancer Z12.4 [facility] [address] [facility] [id number] [address] [place] [address] Aug, [facility] [address] [id number] [address] [place] [phone] Aug, [facility] [address] [facility] [id number] [address] [place] [phone] Aug, [facility] [address] [id number] [address] [place] [phone] Jul, [facility] [address] [facility] [id number] [address] [place] [phone] Jun, [facility] [address] [id number] [address] [place] [address] Jun, [facility] [address] [facility] [id number] [address] [place] [phone] 14 Jun, 2019 [facility] [address] [facility] [id number] [address] [place] [address] Jun, BMI 50.0-59.9, adult Z68.43 [facility] [address] [place] [id number] [address] [place] [address] Jun, [facility] [address] [place] [id number] [place] [address] May, Acute non-recurrent sinusiti s, unspecified location J01.90 ; Diarrhea, unspecified R19.7 ; Vomiting, unspecified R11.10 and Morbid obesity E66.01 [place] [address] [address] Apr, [place] [address] [address] Apr, Anemia due to other cause, n ot classified D64.89 and D-dimer, elevated R79.89 [place] [address] [address] Apr, [place] [address] [address] Apr, [place] [address] [address] Mar, Anemia due to other cause, n ot classified D64.89 and D-dimer, elevated R79.89 [place] [address] [address] Mar, Leg edema, right R60.0 ; Hig h risk medication use Z79.899 and Morbid obesity E66.01 [facility] [address] [place] [id number] [address] [place] [address] Mar, BMI 50.0-59.9, adult Z68.43 [place] [address] [address] Mar, [place] [address] [address] January, Uncontrolled type 2 diabetes mellitus with hyperglycemia E11.65 ; RLS (restless legs syndrome) G25.81 and Morbid obesity E66.01 [facility] [address] [id number] [address] [place] [id number] 15 Oct, 2018 Lipoma of right lower extrem ity D17.23 [facility] [address] [id number] [address] [place] [id number] 05 Oct, 2018 Lipoma of right lower extrem ity D17.23 [facility] [address] [id number] [address] [place] [address] Sep, [facility] [address] [id number] [address] [place] [phone] Sep, [facility] [address] [id number] [address] [place] [phone] Sep, [facility] [address] [facility] [id number] [address] [place] [address] Sep, [facility] [address] [facility] [id number] [address] [place] [phone] Sep, [facility] [address] [facility] [id number] [address] [place] [address] Aug, Uncontrolled type 2 diabetes mellitus with hyperglycemia E11.65 ; Morbid obesity due to excess calories E66.01 ; Lipoma of torso D17.1 and BMI 50.0-59.9, adult Z68.43 [facility] [address] [facility] [id number] [address] [place] [phone] Jun, Encounter for immunization Z 23 [facility] [address] [id number] [address] [place] [id number] Jul, [facility] [address] [facility] [id number] [address] [place] [phone] Jun, Encounter for immunization Z 23 [facility] [address] [id number] [address] [place] [phone] May, [facility] [address] [facility] [id number] [address] [place] [phone] Jun, Encounter for immunization Z 23 [facility] [address] [id number] [address] [place] [address], [place] [address] 29 May, 2015 [facility] [address] [id number] [address] [place] [address], [place] [address] May, [facility] [address] [id number] [address] [place] [address], [place] [address] Apr, [facility] [address] [id number] [address] [place] [address], [place] [address] Feb, [facility] [address] [id number] [address] [place] [address], [place] [address] Feb, [facility] [address] [id number] [address] [place] [address], [place] [address] Feb, [facility] [address] [id number] [address] [place] [address], [place] [address] January, [facility] [address] [id number] [address] [place] [address], [place] [address] January, [facility] [address] [id number] [address] [place] [address], [place] [address] Dec, [facility] [address] [id number] [address] [place] [address], [place] [address] Dec, [facility] [address] [id number] [address] [place] [phone] Nov, [facility] [address] [id number] [address] [place] [phone] Nov, [facility] [address] [id number] [address] [place] [phone] Nov, [facility] [address] [id number] [address] [place] [phone] Nov, [facility] [address] [id number] [address] [place] [address], [place] [address] Nov, [facility] [address] [id number] [address] [place] [address], [place] [address] Nov, [facility] [address] [id number] [address] [place] [address], [place] [address] Nov, [facility] [address] [id number] [address] [place] [address], [place] [address] 18 Oct, 2014 [facility] [address] [id number] [address] [place] [address], [place] [address] Oct, [facility] [address] [id number] [address] [place] [address], [place] [address] Oct, [facility] [address] [id number] [address] [place] [address], [place] [address] Oct, [facility] [address] [id number] [address] [place] [address], [place] [address] Oct, [facility] [address] [id number] [address] [place] [address], [place] [address] Sep, [facility] [address] [id number] [address] [place] [address], [place] [address] Sep, [facility] [address] [id number] [address] [place] [address], [place] [address] Sep, [facility] [address] [id number] [address] [place] [address], [place] [address] Sep, [facility] [address] [id number] [address] [place] [address], [place] [address] Sep, [facility] [address] [id number] [address] [place] [address], [place] [address] Sep, [facility] [address] [id number] [address] [place] [address], [place] [address] Sep, [facility] [address] [id number] [address] [place] [address], [place] [address] Sep, [facility] [address] [id number] [address] [place] [address], [place] [address] Sep, [facility] [address] [id number] [address] [place] [address], [place] [address] Sep, [facility] [address] [id number] [address] [place] [address], [place] [address] Aug, [facility] [address] [id number] [address] [place] [address], [place] [address] Aug, [facility] [address] [id number] [address] [place] [address], [place] [address] Aug, [facility] [address] [id number] [address] [place] [address], [place] [address] Aug, [facility] [address] [id number] [address] [place] [address], [place] [address] Aug, [facility] [address] [id number] [address] [place] [address], [place] [address] Aug, [facility] [address] [id number] [address] [place] [address], [place] [address] Aug, [facility] [address] [id number] [address] [place] [address], [place] [address] Aug, [facility] [address] [id number] [address] [place] [address], [place] [address] Aug, [facility] [address] [id number] [address] [place] [address], [place] [address] Aug, [facility] [address] [id number] [address] [place] [address], [place] [address] Aug, [facility] [address] [id number] [address] [place] [address], [place] [address] Aug, [facility] [address] [id number] [address] [place] [address], [place] [address] Aug, [facility] [address] [id number] [address] [place] [address], [place] [address] Aug, [facility] [address] [id number] [address] [place] [address], [place] [address] 17 Aug, 2014 [facility] [address] [id number] [address] [place] [address], [place] [address] 17 Aug, 2014 [facility] [address] [id number] [address] [place] [address], [place] [address] 16 Aug, 2014 [facility] [address] [id number] [address] [place] [address], [place] [address] 16 Aug, 2014 [facility] [address] [id number] [address] [place] [address], [place] [address] Aug, [facility] [address] [id number] [address] [place] [address], [place] [address] Aug, [facility] [address] [id number] [address] [place] [address], [place] [address] Aug, [facility] [address] [id number] [address] [place] [address], [place] [address] Aug, [facility] [address] [id number] [address] [place] [address], [place] [address] 05 Aug, 2014 [facility] [address] [id number] [address] [place] [address], [place] [address] 05 Aug, 2014 [facility] [address] [id number] [address] [place] [address], [place] [address] Jul, [facility] [address] [id number] [address] [place] [address], [place] [address] Jul, [facility] [address] [id number] [address] [place] [address], [place] [address] Jun, [facility] [address] [id number] [address] [place] [address], [place] [address] Jun, [facility] [address] [id number] [address] [place] [address], [place] [address] Jun, [facility] [address] [id number] [address] [place] [address], [place] [address] Jun, [facility] [address] [id number] [address] [place] [address], [place] [address] 15 Jun, 2014 [facility] [address] [id number] [address] [place] [address], [place] [address] 15 Jun, 2014 [facility] [address] [id number] [address] [place] [address], [place] [address] 14 Jun, 2014 [facility] [address] [id number] [address] [place] [address], [place] [address] 14 Jun, 2014 [facility] [address] [id number] [address] [place] [address], [place] [address] 13 Jun, 2014 [facility] [address] [id number] [address] [place] [address], [place] [address] 13 Jun, 2014 [facility] [address] [id number] [address] [place] [address], [place] [address] 13 Jun, 2014 [facility] [address] [id number] [address] [place] [address], [place] [address] Jun, [facility] [address] [id number] [address] [place] [address], [place] [address] 06 Jun, 2014 [facility] [address] [id number] [address] [place] [address], [place] [address] 06 Jun, 2014 [facility] [address] [id number] [address] [place] [address] 26 May, 2013 [facility] [address] [id number] [address] [place] [address] 26 May, 2013 [facility] [address] [id number] [address] [place] [address], [place] [address] 22 May, 2013 [facility] [address] [id number] [address] [place] [address], [place] [address] 22 May, 2013 [facility] [address] [id number] [address] [place] [address], [place] [address] 04 May, 2013 [facility] [address] [id number] [address] [place] [address] May, [facility] [address] [id number] [address] [place] [address], [place] [address] May, [facility] [address] [id number] [address] [place] [address], [place] [address] May, [facility] [address] [id number] [address] [place] [address], [place] [address] Apr, [facility] [address] [id number] [address] [place] [address], [place] [address] Apr, [facility] [address] [id number] [address] [place] [address], [place] [address] Apr, [facility] [address] [id number] [address] [place] [address], [place] [address] Apr, [facility] [address] [id number] [address] [place] [address], [place] [address] Apr, [facility] [address] [id number] [address] [place] [address], [place] [address] Apr, [facility] [address] [id number] [address] [place] [address], [place] [address] Apr, [facility] [address] [id number] [address] [place] [address], [place] [address] Apr, [facility] [address] [id number] [address] [place] [address], [place] [address] Apr, [facility] [address] [id number] [address] [place] [address], [place] [address] Mar, [facility] [address] [id number] [address] [place] [address], [place] [address] Mar, [facility] [address] [id number] [address] [place] [address], [place] [address] Mar, [facility] [address] [id number] [address] [place] [address], [place] [address] Feb, [facility] [address] [id number] [facility] [place] [address] 30 Feb, 2014 [facility] [address] [id number] [facility] [place] [address] Feb, [facility] [address] [id number] [facility] [place] [address] Feb, [facility] [address] [id number] [facility] [place] [address] Feb, [facility] [address] [id number] [facility] [place] [address] 17 Feb, 2014 [facility] [address] [id number] [address] [place] [address], [place] [address] Feb, [facility] [address] [id number] [address] [place] [address], [place] [address] Feb, [facility] [address] [id number] [address] [place] [address], [place] [address] Feb, [facility] [address] [id number] [address] [place] [address], [place] [address] Feb, [facility] [address] [id number] [address] [place] [address], [place] [address] Feb, [facility] [address] [id number] [address] [place] [address], [place] [address] Feb, [facility] [address] [id number] [address] [place] [address], [place] [address] Feb, [facility] [address] [id number] [address] [place] [address], [place] [address] Feb, [facility] [address] [id number] [address] [place] [address], [place] [address] Feb, [facility] [address] [id number] [address] [place] [address], [place] [address] Feb, [facility] [address] [id number] [address] [place] [address], [place] [address] January, [facility] [address] [id number] [facility] [place] [address] January, [facility] [address] [id number] [address] [place] [address], [place] [address] January, [facility] [address] [id number] [address] [place] [address], [place] [address] January, [facility] [address] [id number] [address] [place] [address], [place] [address] January, [facility] [address] [id number] [address] [place] [address], [place] [address] January, [facility] [address] [id number] [address] [place] [address], [place] [address] January, [facility] [address] [id number] [address] [place] [address], [place] [address] January, [facility] [address] [id number] [address] [place] [address], [place] [address] January, [facility] [address] [id number] [address] [place] [address], [place] [address] January, [facility] [address] [id number] [address] [place] [address], [place] [address] January, [facility] [address] [id number] [address] [place] [address], [place] [address] January, [facility] [address] [id number] [address] [place] [address], [place] [address] January, [facility] [address] [id number] [address] [place] [address], [place] [address] January, [facility] [address] [id number] [address] [place] [address], [place] [address] January, [facility] [address] [id number] [address] [place] [address], [place] [address] January, [facility] [address] [id number] [address] [place] [address], [place] [address] January, [facility] [address] [id number] [address] [place] [address], [place] [address] January, [facility] [address] [id number] [address] [place], [place] [address], [place] [address] January, [facility] [address] [id number] [address] [place] [address], [place] [address] January, [facility] [address] [id number] [address] [place] [address], [place] [address] January, [facility] [address] [id number] [address] [place] [address], [place] [address] January, [facility] [address] [id number] [address] [place] [address], [place] [address] January, [facility] [address] [id number] [address] [place] [address], [place] [address] January, [facility] [address] [id number] [address] [place] [address], [place] [address] January, [facility] [address] [id number] [address] [place] [address], [place] [address] January, [facility] [address] [id number] [address] [place] [address], [place] [address] Dec, [facility] [address] [id number] [address] [place] [address], [place] [address] Dec, [facility] [address] [id number] [address] [place] [address], [place] [address] Dec, [facility] [address] [id number] [address] [place] [address], [place] [address] Dec, [facility] [address] [id number] [address] [place] [address], [place] [address] Dec, [facility] [address] [id number] [address] [place] [address], [place] [address] Dec, [facility] [address] [id number] [facility] [place] [address] Dec, [facility] [address] [id number] [address] [place] [address], [place] [address] Dec, [facility] [address] [id number] [address] [place] [address], [place] [address] Dec, [facility] [address] [id number] [address] [place] [address], [place] [address] Dec, [facility] [address] [id number] [address] [place] [address], [place] [address] Dec, [facility] [address] [id number] [address] [place] [address], [place] [address] Dec, [facility] [address] [id number] [address] [place] [address], [place] [address] Dec, [facility] [address] [id number] [address] [place] [address], [place] [address] Dec, [facility] [address] [id number] [address] [place] [address], [place] [address] Dec, [facility] [address] [id number] [address] [place] [address], [place] [address] Dec, [facility] [address] [id number] [address] [place] [address], [place] [address] Dec, [facility] [address] [id number] [address] [place] [address], [place] [address] Dec, [facility] [address] [id number] [address] [place] [address], [place] [address] Dec, [facility] [address] [id number] [address] [place] [address], [place] [address] Dec, [facility] [address] [id number] [address] [place] [address], [place] [address] Dec, [facility] [address] [id number] [address] [place] [address], [place] [address] 07 Dec, 2013 [facility] [address] [id number] [facility] [place] [address] 31 Nov, 2013 [facility] [address] [id number] [address] [place] [address], [place] [address] 31 Nov, 2013 [facility] [address] [id number] [facility] [place] [address] Nov, [facility] [address] [id number] [address] [place] [address], [place] [address] Nov, [facility] [address] [id number] [facility] [place] [address] 24 Nov, 2013 [facility] [address] [id number] [address] [place] [address], [place] [address] 24 Nov, 2013 [facility] [address] [id number] [address] [place] [address], [place] [address] Nov, [facility] [address] [id number] [address] [place] [address], [place] [address] 22 Nov, 2013 [facility] [address] [id number] [address] [place] [address], [place] [address] 18 Nov, 2013 [facility] [address] [id number] [address] [place] [address], [place] [address] 18 Nov, 2013 [facility] [address] [id number] [address] [place] [address], [place] [address] 18 Nov, 2013 [facility] [address] [id number] [address] [place] [address], [place] [address] 18 Nov, 2013 [facility] [address] [id number] [address] [place] [address], [place] [address] 14 Nov, 2013 [facility] [address] [id number] [address] [place] [address], [place] [address] 14 Nov, 2013 [facility] [address] [id number] [address] [place] [address], [place] [address] 06 Nov, 2013 [facility] [address] [id number] [address] [place] [address], [place] [address] Nov, [facility] [address] [id number] [address] [place] [address], [place] [address] Oct, [facility] [address] [id number] [address] [place] [address], [place] [address] Oct, [facility] [address] [id number] [address] [place] [address], [place] [address] Oct, [facility] [address] [id number] [address] [place] [address], [place] [address] Oct, [facility] [address] [id number] [address] [place] [address], [place] [address] Oct, [facility] [address] [id number] [address] [place] [address], [place] [address] Oct, [facility] [address] [id number] [address] [place] [address], [place] [address] Oct, [facility] [address] [id number] [address] [place] [address], [place] [address] Oct, [facility] [address] [id number] [address] [place] [address], [place] [address] Oct, [facility] [address] [id number] [address] [place] [address], [place] [address] Oct, [facility] [address] [id number] [address] [place] [address] Oct, [facility] [address] [id number] [address] [place] [address], [place] [address] Oct, [facility] [address] [id number] [address] [place] [address], [place] [address] Oct, [facility] [address] [id number] [address] [place] [address], [place] [address] Oct, [facility] [address] [id number] [address] [place] [address] Oct, [facility] [address] [id number] [address] [place] [address], [place] [address] Sep, [facility] [address] [id number] [address] [place] [address], [place] [address] Sep, [facility] [address] [id number] [address] [place] [address], [place] [address] Sep, [facility] [address] [id number] [address] [place] [address], [place] [address] Sep, [facility] [address] [id number] [address] [place] [address], [place] [address] Sep, [facility] [address] [id number] [address] [place] [address], [place] [address] Sep, [facility] [address] [id number] [address] [place] [address], [place] [address] Sep, [facility] [address] [id number] [address] [place] [address], [place] [address] Sep, [facility] [address] [id number] [address] [place] [address], [place] [address] Sep, [facility] [address] [id number] [address] [place] [address], [place] [address] Sep, [facility] [address] [id number] [address] [place] [address], [place] [address] Sep, [facility] [address] [id number] [address] [place] [address], [place] [address] Sep, [facility] [address] [id number] [address] [place] [address], [place] [address] Sep, [facility] [address] [id number] [address] [place] [address], [place] [address] Aug, [facility] [address] [id number] [address] [place] [address], [place] [address] Aug, [facility] [address] [id number] [address] [place] [address], [place] [address] 24 Aug, 2013 [facility] [address] [id number] [address] [place] [address], [place] [address] 24 Aug, 2013 [facility] [address] [id number] [address] [place] [address], [place] [address] 17 Aug, 2013 [facility] [address] [id number] [address] [place] [address], [place] [address] 17 Aug, 2013 [facility] [address] [id number] [address] [place] [address], [place] [address] 16 Aug, 2013 [facility] [address] [id number] [address] [place] [address], [place] [address] 16 Aug, 2013 [facility] [address] [id number] [address] [place] [address], [place] [address] Aug, [facility] [address] [id number] [address] [place] [address], [place] [address] Aug, [facility] [address] [id number] [address] [place] [address], [place] [address] Aug, [facility] [address] [id number] [address] [place] [address], [place] [address] Aug, [facility] [address] [id number] [address] [place] [address], [place] [address] Aug, [facility] [address] [id number] [address] [place] [address], [place] [address] Aug, [facility] [address] [id number] [address] [place] [address], [place] [address] Jul, [facility] [address] [id number] [address] [place] [address], [place] [address] Jul, [facility] [address] [id number] [address] [place] [address], [place] [address] 18 Jul, 2013 [facility] [address] [id number] [address] [place] [address], [place] [address] 18 Jul, 2013 [facility] [address] [id number] [address] [place] [address], [place] [address] 14 Jul, 2013 [facility] [address] [id number] [address] [place] [address], [place] [address] 14 Jul, 2013 [facility] [address] [id number] [address] [place] [address], [place] [address] 14 Jul, 2013 [facility] [address] [id number] [address] [place] [address] 14 Jul, 2013 [facility] [address] [id number] [address] [place] [address], [place] [address] 07 Jul, 2013 [facility] [address] [id number] [address] [place] [address] 07 Jul, 2013 [facility] [address] [id number] [address] [place] [address], [place] [address] 06 Jul, 2013 [facility] [address] [id number] [address] [place] [address] 06 Jul, 2013 [facility] [address] [id number] [address] [place] [address] 05 Jul, 2013 [facility] [address] [id number] [address] [place] [address] 05 Jul, 2013 [facility] [address] [id number] [address] [place] [address] 23 Jun, 2013 [facility] [address] [id number] [address] [place] [address] 23 Jun, 2013 [facility] [address] [id number] [address] [place] [address] 15 Jun, 2013 [facility] [address] [id number] [address] [place] [address] 15 Jun, 2013 [facility] [address] [id number] [address] [place] [address] 14 Jun, 2013 [facility] [address] [id number] [facility] [place] [address] 24 Sep, 2012 [facility] [address] [id number] [address] [place] [address], [place] [address] 20 Sep, 2012 [facility] [address] [id number] [address] [place] [address], [place] [address] 20 Sep, 2012 [facility] [address] [id number] [address] [place] [address], [place] [address] 20 Sep, 2012 [facility] [address] [id number] [address] [place] [address], [place] [address] 19 Sep, 2012 [facility] [address] [id number] [address] [place] [address], [place] [address] 13 May, 2012 [facility] [address] [id number] [address] [place] [address], [place] [address] 12 May, 2012 [facility] [address] [id number] [address] [place] [address], [place] [address] 12 May, 2012 [facility] [address] [id number] [address] [place] [address], [place] [address] 11 Sep, 2012 [facility] [address] [id number] [address] [place] [address], [place] [address] 11 May, 2012 [facility] [address] [id number] [address] [place] [address], [place] [address] 11 Sep, 2012 [facility] [address] [id number] [address] [place] [address], [place] [address] 09 Sep, 2012 [facility] [address] [id number] [address] [place] [address], [place] [address] 05 Sep, 2012 [facility] [address] [id number] [address] [place] [address], [place] [address] 04 Sep, 2012 [facility] [address] [id number] [address] [place] [address], [place] [address] 03 Sep, 2012 [facility] [address] [id number] [address] [place] [address], [place] [address] Apr, [facility] [address] [id number] [address] [place] [address], [place] [address] Apr, [facility] [address] [id number] [address] [place] [address], [place] [address] Apr, [facility] [address] [id number] [address] [place] [address], [place] [address] Apr, [facility] [address] [id number] [address] [place] [address], [place] [address] Apr, [facility] [address] [id number] [address] [place] [address], [place] [address] Apr, [facility] [address] [id number] [address] [place] [address], [place] [address] Apr, [facility] [address] [id number] [address] [place] [address], [place] [address] Apr, [facility] [address] [id number] [address] [place] [address], [place] [address] Apr, [facility] [address] [id number] [address] [place] [address], [place] [address] Mar, [facility] [address] [id number] [address] [place] [address], [place] [address] Mar, [facility] [address] [id number] [address] [place] [address], [place] [address] Mar, [facility] [address] [id number] [address] [place] [address], [place] [address] Mar, [facility] [address] [id number] [address] [place] [address], [place] [address] Mar, [facility] [address] [id number] [address] [place] [address], [place] [address] Mar, [facility] [address] [id number] [address] [place] [address], [place] [address] Mar, [facility] [address] [id number] [address] [place] [address], [place] [address] Mar, [facility] [address] [id number] [address] [place] [address], [place] [address] Mar, [facility] [address] [id number] [address] [place] [address], [place] [address] Mar, [facility] [address] [id number] [address] [place] [address], [place] [address] Mar, [facility] [address] [id number] [address] [place] [address], [place] [address] Feb, [facility] [address] [id number] [address] [place] [address], [place] [address] Feb, [facility] [address] [id number] [address] [place] [address], [place] [address] Feb, [facility] [address] [id number] [address] [place] [address], [place] [address] Feb, [facility] [address] [id number] [address] [place] [address], [place] [address] Feb, [facility] [address] [id number] [address] [place] [address], [place] [address] Feb, [facility] [address] [id number] [address] [place] [address], [place] [address] Feb, [facility] [address] [id number] [address] [place] [address], [place] [address] Feb, [facility] [address] [id number] [address] [place] [address], [place] [address] Feb, [facility] [address] [id number] [address] [place] [address], [place] [address] January, [facility] [address] [id number] [address] [place] [address], [place] [address] January, [facility] [address] [id number] [address] [place] [address], [place] [address] January, [facility] [address] [id number] [address] [place] [address], [place] [address] January, [facility] [address] [id number] [address] [place] [address], [place] [address] January, [facility] [address] [id number] [address] [place] [address], [place] [address] January, [facility] [address] [id number] [address] [place] [address], [place] [address] January, [facility] [address] [id number] [address] [place] [address], [place] [address] January, [facility] [address] [id number] [address] [place] [address], [place] [address] January, [facility] [address] [id number] [address] [place] [address], [place] [address] January, [facility] [address] [id number] [address] [place] [address], [place] [address] January, [facility] [address] [id number] [address] [place] [address], [place] [address] January, [facility] [address] [id number] [address] [place] [address], [place] [address] January, [facility] [address] [id number] [address] [place] [address], [place] [address] January, [facility] [address] [id number] [address] [place] [address], [place] [address] January, [facility] [address] [id number] [address] [place] [address], [place] [address] January, [facility] [address] [id number] [address] [place] [address], [place] [address] January, [facility] [address] [id number] [address] [place] [address], [place] [address] January, [facility] [address] [id number] [address] [place] [address], [place] [address] January, [facility] [address] [id number] [address] [place] [address], [place] [address] January, [facility] [address] [id number] [address] [place] [address], [place] [address] January, [facility] [address] [id number] [address] [place] [address], [place] [address] January, [facility] [address] [id number] [address] [place] [address], [place] [address] January, [facility] [address] [id number] [address] [place] [address], [place] [address] Dec, [facility] [address] [id number] [address] [place] [address], [place] [address] Dec, [facility] [address] [id number] [address] [place] [address], [place] [address] Dec, [facility] [address] [id number] [address] [place] [address], [place] [address] Dec, [facility] [address] [id number] [address] [place] [address], [place] [address] Dec, [facility] [address] [id number] [address] [place] [address], [place] [address] Nov, [facility] [address] [id number] [address] [place] [address], [place] [address] Oct, [facility] [address] [id number] [address] [place] [address], [place] [address] Oct, [facility] [address] [id number] [address] [place] [address], [place] [address] Oct, [facility] [address] [id number] [address] [place] [address], [place] [address] Oct, [facility] [address] [id number] [address] [place] [address], [place] [address] Oct, [facility] [address] [id number] [address] [place] [address], [place] [address] Sep, [facility] [address] [id number] [address] [place] [address], [place] [address] Sep, [facility] [address] [id number] [address] [place] [address], [place] [address] Sep, [facility] [address] [id number] [address] [place] [address], [place] [address] Aug, [facility] [address] [id number] [address] [place] [address], [place] [address] Aug, [facility] [address] [id number] [address] [place] [address], [place] [address] Aug, [facility] [address] [id number] [address] [place] [address], [place] [address] Aug, [facility] [address] [id number] [address] [place] [address], [place] [address] Jul, [facility] [address] [id number] [address] [place] [address], [place] [address] Jul, [facility] [address] [id number] [address] [place] [address], [place] [address] Jul, [facility] [address] [id number] [address] [place] [address], [place] [address] Jul, [facility] [address] [id number] [address] [place] [address], [place] [address] Jul, [facility] [address] [id number] [address] [place] [address], [place] [address] Jul, [facility] [address] [id number] [address] [place] [address], [place] [address] Jun, [facility] [address] [id number] 08 [place] [address], [place] [address] Jun, [facility] [address] [id number] [address] [place] [address], [place] [address] Jun, [facility] [address] [id number] [address] [place] [address], [place] [address] Jun, [facility] [address] [id number] [address] [place] [address], [place] [address] Jun, [facility] [address] [id number] [address] [place] [address], [place] [address] Jun, [facility] [address] [id number] [address] [place] [address], [place] [address] Jun, [facility] [address] [id number] [address] [place] [address], [place] [address] Jun, [facility] [address] [id number] [address] [place] [address], [place] [address] Jun, [facility] [address] [id number] [address] [place] [address], [place] [address] Jun, [facility] [address] [id number] [address] [place] [address], [place] [address] 17 May, 2012 [facility] [address] [id number] [address] [place] [address], [place] [address] 08 May, 2012 [facility] [address] [id number] [address] [place] [address], [place] [address] 06 May, 2012 [facility] [address] [id number] [address] [place] [address], [place] [address] 30 Apr, 2012 [facility] [address] [id number] [address] [place] [address], [place] [address] 29 Apr, 2012 [facility] [address] [id number] [address] [place] [address], [place] [address] 14 Apr, 2012 [facility] [address] [id number] [address] [place] [address], [place] [address] Apr, [facility] [address] [id number] [address] [place] [address], [place] [address] Apr, [facility] [address] [id number] [address] [place] [address] Apr, [facility] [address] [id number] [address] [place] [address], [place] [address] Apr, [facility] [address] [id number] [address] [place] [address], [place] [address] Apr, [facility] [address] [id number] [address] [place] [address], [place] [address] Apr, [facility] [address] [id number] [address] [place] [address], [place] [address] Mar, [facility] [address] [id number] [address] [place] [address], [place] [address] Mar, [facility] [address] [id number] [address] [place] [address], [place] [address] Mar, [facility] [address] [id number] [address] [place] [address], [place] [address] Mar, [facility] [address] [id number] [address] [place] [address], [place] [address] Feb, [facility] [address] [id number] [address] [place] [address], [place] [address] Feb, [facility] [address] [id number] [address] [place] [address], [place] [address] Feb, [facility] [address] [id number] [address] [place] [address], [place] [address] January, [facility] [address] [id number] [address] [place] [address], [place] [address] January, [facility] [address] [id number] [address] [place] [address], [place] [address] January, [facility] [address] [id number] [address] [place] [address], [place] [address] January, [facility] [address] [id number] [address] [place] [address], [place] [address] January, [facility] [address] [id number] [address] [place] [address], [place] [address] 30 Dec, 2011 [facility] [address] [id number] [address] [place] [address], [place] [address] Dec, [facility] [address] [id number] [address] [place] [address], [place] [address] 16 Dec, 2011 [facility] [address] [id number] [address] [place] [address], [place] [address] Oct, [facility] [address] [id number] [address] [place] [address], [place] [address] Oct, [facility] [address] [id number] [address] [place] [address], [place] [address] Oct, [facility] [address] [id number] [address] [place] [address], [place] [address] Sep, [facility] [address] [id number] [address] [place] [address], [place] [address] Sep, [facility] [address] [id number] [address] [place] [address], [place] [address] Aug, [facility] [address] [id number] [address] [place] [address], [place] [address] Jul, [facility] [address] [id number] [address] [place] [address], [place] [address] Jul, [facility] [address] [id number] [address] [place] [address], [place] [address] Mar, [facility] [address] [id number] [address] [place] [address], [place] [address] 10 Aug, 2010 [facility] [address] [id number] [address] [place] [address], [place] [address] 10 Jul, 2010 [facility] [address] [id number] [address] [place] [address], [place] [address] 04 Jul, 2010 [facility] [address] [id number] [address] [place] [address], [place] [address] 04 Jul, 2010 [facility] [address] [id number] [address] [place] [address], [place] [address] 04 Jul, 2010 [facility] [address] [id number] [address] [place] [address] 14 Jun, 2010 [facility] [address] [id number] [address] [place] [address], [place] [address] 12 Jun, 2010 [facility] [address] [id number] [address] [place] [address] 17 Apr, 2010 [facility] [address] [id number] [address] [place] [address], [place] [address] Aug, [facility] [address] [id number] [address] [place] [address] Jul, [facility] [address] [id number] [address] [place] [address] Jul, [facility] [address] [id number] [address] [place] [address] Jul, [facility] [address] [id number] [address] [place] [address] 23 Jun, 2009 [facility] [address] [id number] [address] [place] [address] 10 May, 2009 [facility] [address] [id number] [address] [place] [address] 14 Dec, 2008 [facility] [address] [id number] [address] [place] [address] Nov, [facility] [address] [id number] [address] [place] [address] 10 Oct, 2008 [facility] [address] [id number] [address] [place] [id number] 05 Aug, 2008 [facility] [address] [id number] [address] [place] [address] Aug, [facility] [address] [id number] [address] [place] [address] 28 Jun, 2008 IMMUNIZATIONS No Known Immunizations [...] Hospitalization History [facility] [place]- Right wrist injury 03/29/2018
--- OUTSIDE RECORDS SUMMARY | 2020-04-09 00:07 | XMS REPORT ---
Author Author Kateryna Turner Doctor Organization [facility] Address Unknown Phone Unavailable Care Team Providers Care Public Health Advisor Name Role Phone Migration, Doctor Unavailable Unavailable PROBLEMS Type Condition ICD9-CM Code [id number] Code Onset Dates Condition S tatus SNOMED Code Problem Irregular menses N92.6 Active 801 56903 Problem Migraine with aura and without status migrainosu s, not intractable G43.109 Active 0870177 Problem Uncontrolled type 2 diabetes mellitus with hyperglycemia E11.65 Active 854944504 Problem Morbid obesity due to excess calories E66.01 Active 465679143 Problem RLS (restless legs syndrome) G25.81 A ctive 31992192 Problem Morbid obesity E66.01 Active 52151 6002 ALLERGIES No Information ENCOUNTERS Encounter Location Date Diagnosis [facility] [address] [facility] [id number] [address] [place] [address] January, [facility] [address] [facility] [id number] [address] [place] [address] Dec, [facility] [address] [facility] [id number] [address] [place] [address] Dec, [facility] [address] [facility] [id number] [address] [place] [address] Dec, Uncontrolled type 2 diabetes mellitus with hyperglycemia E11.65 [facility] [address] [id number] [address] [place] [id number] 07 Dec, 2019 [facility] [address] [id number] [address] [place] [address] Dec, [facility] [address] [facility] [id number] [address] [place] [address] Dec, [facility] [address] [facility] [id number] [address] [place] [id number] Nov, [facility] [address] [id number] [address] [place] [address] 28 Nov, 2019 [facility] [address] [id number] [address] [place] [address] 03 Nov, 2019 [facility] [address] [facility] [id number] [address] [place] [id number] 02 Nov, 2019 RLS (restless legs syndrome) G25.81 [facility] [address] [id number] [address] [place] [id number] 15 Oct, 2019 [facility] [address] [facility] [id number] [address] [place] [address] 09 Oct, 2019 Influenza J11.1 [facility] [address] [facility] [id number] [address] [place] [address] 16 Sep, 2019 [facility] [address] [facility] [id number] [address] [place] [address] 14 Sep, 2019 [facility] [address] [facility] [id number] [address] [place] [id number] 14 Sep, 2019 [facility] [address] [id number] [address] [place] [address] 13 Sep, 2019 [facility] [address] [facility] [id number] [address] [place] [address] 10 Sep, 2019 Pneumonia of left lower lobe due to infectious organism J18.9 and Migraine with aura and without status migrainosus, not intractable G43.109 [facility] [address] [facility] [id number] [address] [place] [address] 10 Sep, 2019 [facility] [address] [facility] [id number] [address] [place] [address] 10 Sep, 2019 [facility] [address] [facility] [id number] [address] [place] [id number] 08 Sep, 2019 [facility] [address] [facility] [id number] [address] [place] [id number] 08 Sep, 2019 [facility] [address] [id number] [address] [place] [address] 08 Sep, 2019 Pneumonia of left lower lobe due to infectious organism J18.9 and Migraine with aura and without status migrainosus, not intractable G43.109 [facility] [address] [id number] [address] [place] [address] Aug, Irregular menses N92.6 ; Wel l woman exam Z01.419 ; Pelvic cramping R10.2 and Left breast lump N63.20 [facility] [address] [id number] [address] [place] [address] Aug, [facility] [address] [facility] [id number] [address] [place] [address] 17 Aug, 2019 Well woman exam Z01.419 ; Le ft breast lump N63.20 ; Irregular menses N92.6 ; Encounter for immunization Z23 ; Pelvic cramping R10.2 and Screening for cervical cancer Z12.4 [facility] [address] [facility] [id number] [address] [place] [address] Aug, [facility] [address] [id number] [address] [place] [address] Aug, [facility] [address] [facility] [id number] [address] [place] [id number] Aug, [facility] [address] [id number] [address] [place] [address] Jul, [facility] [address] [facility] [id number] [address] [place] [id number] Jun, [facility] [address] [id number] [address] [place] [id number] Jun, [facility] [address] [facility] [id number] [address] [place] [id number] 14 Jun, 2019 [facility] [address] [facility] [id number] [address] [place] [address] Jun, BMI 50.0-59.9, adult Z68.43 [facility] [address] [place] [id number] [address] [place] [address] Jun, [facility] [address] [place] [id number] [place] [address] May, Acute non-recurrent sinusiti s, unspecified location J01.90 ; Diarrhea, unspecified R19.7 ; Vomiting, unspecified R11.10 and Morbid obesity E66.01 [place] [address] [address] Apr, [place] [address] [address] Apr, Anemia due to other cause, n ot classified D64.89 and D-dimer, elevated R79.89 [place] [address] [address] Apr, [place] [address] [address] Apr, [place] [address] [address] Mar, Anemia due to other cause, n ot classified D64.89 and D-dimer, elevated R79.89 [place] [address] [address] Mar, Leg edema, right R60.0 ; Hig h risk medication use Z79.899 and Morbid obesity E66.01 [facility] [address] [place] [id number] [address] [place] [address] Mar, BMI 50.0-59.9, adult Z68.43 [place] [address] [address] Mar, [place] [address] [address] January, Uncontrolled type 2 diabetes mellitus with hyperglycemia E11.65 ; RLS (restless legs syndrome) G25.81 and Morbid obesity E66.01 [facility] [address] [id number] [address] [place] [address] 15 Oct, 2018 Lipoma of right lower extrem ity D17.23 [facility] [address] [id number] [address] [place] [address] 05 Oct, 2018 Lipoma of right lower extrem ity D17.23 [facility] [address] [id number] [address] [place] [address] Sep, [facility] [address] [id number] [address] [place] [id number] Sep, [facility] [address] [id number] [address] [place] [address] Sep, [facility] [address] [facility] [id number] [address] [place] [address] Sep, [facility] [address] [facility] [id number] [address] [place] [address] Sep, [facility] [address] [facility] [id number] [address] [place] [address] Aug, Uncontrolled type 2 diabetes mellitus with hyperglycemia E11.65 ; Morbid obesity due to excess calories E66.01 ; Lipoma of torso D17.1 and BMI 50.0-59.9, adult Z68.43 [facility] [address] [facility] [id number] [address] [place] [address] Jun, Encounter for immunization Z 23 [facility] [address] [id number] [address] [place] [address] Jul, [facility] [address] [facility] [id number] [address] [place] [address] Jun, Encounter for immunization Z 23 [facility] [address] [id number] [address] [place] [id number] May, [facility] [address] [facility] [id number] [address] [place] [address] Jun, Encounter for immunization Z 23 [facility] [address] [id number] [address] [place] [address], [place] [address] 29 May, 2015 [facility] [address] [id number] [address] [place] [address], [place] [address] May, [facility] [address] [id number] [address] [place] [address], [place] [address] Apr, [facility] [address] [id number] [address] [place] [address], [place] [address] Feb, [facility] [address] [id number] [address] [place] [address], [place] [address] Feb, [facility] [address] [id number] [address] [place] [address], [place] [address] Feb, [facility] [address] [id number] [address] [place] [address], [place] [address] January, [facility] [address] [id number] [address] [place] [address], [place] [address] January, [facility] [address] [id number] [address] [place] [address], [place] [address] Dec, [facility] [address] [id number] [address] [place] [address], [place] [address] Dec, [facility] [address] [id number] [address] [place] [address] Nov, [facility] [address] [id number] [address] [place] [phone] Nov, [facility] [address] [id number] [address] [place] [address] Nov, [facility] [address] [id number] [address] [place] [id number] Nov, [facility] [address] [id number] [address] [place] [address], [place] [address] Nov, [facility] [address] [id number] [address] [place] [address], [place] [address] Nov, [facility] [address] [id number] [address] [place] [address], [place] [address] Nov, [facility] [address] [id number] [address] [place] [address], [place] [address] 18 Oct, 2014 [facility] [address] [id number] [address] [place] [address], [place] [address] Oct, [facility] [address] [id number] [address] [place] [address], [place] [address] Oct, [facility] [address] [id number] [address] [place] [address], [place] [address] Oct, [facility] [address] [id number] [address] [place] [address], [place] [address] Oct, [facility] [address] [id number] [address] [place] [address], [place] [address] Sep, [facility] [address] [id number] [address] [place] [address], [place] [address] Sep, [facility] [address] [id number] [address] [place] [address], [place] [address] Sep, [facility] [address] [id number] [address] [place] [address], [place] [address] Sep, [facility] [address] [id number] [address] [place] [address], [place] [address] Sep, [facility] [address] [id number] [address] [place] [address], [place] [address] Sep, [facility] [address] [id number] [address] [place] [address], [place] [address] Sep, [facility] [address] [id number] [address] [place] [address], [place] [address] Sep, [facility] [address] [id number] [address] [place] [address], [place] [address] Sep, [facility] [address] [id number] [address] [place] [address], [place] [address] Sep, [facility] [address] [id number] [address] [place] [address], [place] [address] Aug, [facility] [address] [id number] [address] [place] [address], [place] [address] Aug, [facility] [address] [id number] [address] [place] [address], [place] [address] Aug, [facility] [address] [id number] [address] [place] [address], [place] [address] Aug, [facility] [address] [id number] [address] [place] [address], [place] [address] Aug, [facility] [address] [id number] [address] [place] [address], [place] [address] Aug, [facility] [address] [id number] [address] [place] [address], [place] [address] Aug, [facility] [address] [id number] [address] [place] [address], [place] [address] Aug, [facility] [address] [id number] [address] [place] [address], [place] [address] Aug, [facility] [address] [id number] [address] [place] [address], [place] [address] Aug, [facility] [address] [id number] [address] [place] [address], [place] [address] Aug, [facility] [address] [id number] [address] [place] [address], [place] [address] Aug, [facility] [address] [id number] [address] [place] [address], [place] [address] Aug, [facility] [address] [id number] [address] [place] [address], [place] [address] Aug, [facility] [address] [id number] [address] [place] [address], [place] [address] 17 Aug, 2014 [facility] [address] [id number] [address] [place] [address], [place] [address] 17 Aug, 2014 [facility] [address] [id number] [address] [place] [address], [place] [address] 16 Aug, 2014 [facility] [address] [id number] [address] [place] [address], [place] [address] 16 Aug, 2014 [facility] [address] [id number] [address] [place] [address], [place] [address] Aug, [facility] [address] [id number] [address] [place] [address], [place] [address] Aug, [facility] [address] [id number] [address] [place] [address], [place] [address] Aug, [facility] [address] [id number] [address] [place] [address], [place] [address] Aug, [facility] [address] [id number] [address] [place] [address], [place] [address] 05 Aug, 2014 [facility] [address] [id number] [address] [place] [address], [place] [address] 05 Aug, 2014 [facility] [address] [id number] [address] [place] [address], [place] [address] Jul, [facility] [address] [id number] [address] [place] [address], [place] [address] Jul, [facility] [address] [id number] [address] [place] [address], [place] [address] Jun, [facility] [address] [id number] [address] [place] [address], [place] [address] Jun, [facility] [address] [id number] [address] [place] [address], [place] [address] Jun, [facility] [address] [id number] [address] [place] [address], [place] [address] Jun, [facility] [address] [id number] [address] [place] [address], [place] [address] 15 Jun, 2014 [facility] [address] [id number] [address] [place] [address], [place] [address] 15 Jun, 2014 [facility] [address] [id number] [address] [place] [address], [place] [address] 14 Jun, 2014 [facility] [address] [id number] [address] [place] [address], [place] [address] 14 Jun, 2014 [facility] [address] [id number] [address] [place] [address], [place] [address] 13 Jun, 2014 [facility] [address] [id number] [address] [place] [address], [place] [address] 13 Jun, 2014 [facility] [address] [id number] [address] [place] [address], [place] [address] 13 Jun, 2014 [facility] [address] [id number] [address] [place] [address], [place] [address] Jun, [facility] [address] [id number] [address] [place] [address], [place] [address] 06 Jun, 2014 [facility] [address] [id number] [address] [place] [address], [place] [address] 06 Jun, 2014 [facility] [address] [id number] [address] [place] [address] 26 May, 2013 [facility] [address] [id number] [address] [place] [id number] 26 May, 2013 [facility] [address] [id number] [address] [place] [address], [place] [address] 22 May, 2013 [facility] [address] [id number] [address] [place] [address], [place] [address] 22 May, 2013 [facility] [address] [id number] [address] [place] [address], [place] [address] 04 May, 2013 [facility] [address] [id number] [address] [place] [address] May, [facility] [address] [id number] [address] [place] [address], [place] [address] May, [facility] [address] [id number] [address] [place] [address], [place] [address] May, [facility] [address] [id number] [address] [place] [address], [place] [address] Apr, [facility] [address] [id number] [address] [place] [address], [place] [address] Apr, [facility] [address] [id number] [address] [place] [address], [place] [address] Apr, [facility] [address] [id number] [address] [place] [address], [place] [address] Apr, [facility] [address] [id number] [address] [place] [address], [place] [address] Apr, [facility] [address] [id number] [address] [place] [address], [place] [address] Apr, [facility] [address] [id number] [address] [place] [address], [place] [address] Apr, [facility] [address] [id number] [address] [place] [address], [place] [address] Apr, [facility] [address] [id number] [address] [place] [address], [place] [address] Apr, [facility] [address] [id number] [address] [place] [address], [place] [address] Mar, [facility] [address] [id number] [address] [place] [address], [place] [address] Mar, [facility] [address] [id number] [address] [place] [address], [place] [address] Mar, [facility] [address] [id number] [address] [place] [address], [place] [address] Feb, [facility] [address] [id number] [facility] [place] [address] 30 Feb, 2014 [facility] [address] [id number] [facility] [place] [address] Feb, [facility] [address] [id number] [facility] [place] [address] Feb, [facility] [address] [id number] [facility] [place] [address] Feb, [facility] [address] [id number] [facility] [place] [address] 17 Feb, 2014 [facility] [address] [id number] [address] [place] [address], [place] [address] Feb, [facility] [address] [id number] [address] [place] [address], [place] [address] Feb, [facility] [address] [id number] [address] [place] [address], [place] [address] Feb, [facility] [address] [id number] [address] [place] [address], [place] [address] Feb, [facility] [address] [id number] [address] [place] [address], [place] [address] Feb, [facility] [address] [id number] [address] [place] [address], [place] [address] Feb, [facility] [address] [id number] [address] [place] [address], [place] [address] Feb, [facility] [address] [id number] [address] [place] [address], [place] [address] Feb, [facility] [address] [id number] [address] [place] [address], [place] [address] Feb, [facility] [address] [id number] [address] [place] [address], [place] [address] Feb, [facility] [address] [id number] [address] [place] [address], [place] [address] January, [facility] [address] [id number] [facility] [place] [address] January, [facility] [address] [id number] [address] [place] [address], [place] [address] January, [facility] [address] [id number] [address] [place] [address], [place] [address] January, [facility] [address] [id number] [address] [place] [address], [place] [address] January, [facility] [address] [id number] [address] [place] [address], [place] [address] January, [facility] [address] [id number] [address] [place] [address], [place] [address] January, [facility] [address] [id number] [address] [place] [address], [place] [address] January, [facility] [address] [id number] [address] [place] [address], [place] [address] January, [facility] [address] [id number] [address] [place] [address], [place] [address] January, [facility] [address] [id number] [address] [place] [address], [place] [address] January, [facility] [address] [id number] [address] [place] [address], [place] [address] January, [facility] [address] [id number] [address] [place] [address], [place] [address] January, [facility] [address] [id number] [address] [place] [address], [place] [address] January, [facility] [address] [id number] [address] [place] [address], [place] [address] January, [facility] [address] [id number] [address] [place] [address], [place] [address] January, [facility] [address] [id number] [address] [place] [address], [place] [address] January, [facility] [address] [id number] [address] [place] [address], [place] [address] January, [facility] [address] [id number] [address] [place] [address], [place] [address] January, [facility] [address] [id number] [address] [place] [address], [place] [address] January, [facility] [address] [id number] [address] [place] [address], [place] [address] January, [facility] [address] [id number] [address] [place] [address], [place] [address] January, [facility] [address] [id number] [address] [place] [address], [place] [address] January, [facility] [address] [id number] [address] [place] [address], [place] [address] January, [facility] [address] [id number] [address] [place] [address], [place] [address] January, [facility] [address] [id number] [address] [place] [address], [place] [address] January, [facility] [address] [id number] [address] [place] [address], [place] [address] Dec, [facility] [address] [id number] [address] [place] [address], [place] [address] Dec, [facility] [address] [id number] [address] [place] [address], [place] [address] Dec, [facility] [address] [id number] [address] [place] [address], [place] [address] Dec, [facility] [address] [id number] [address] [place] [address], [place] [address] Dec, [facility] [address] [id number] [address] [place] [address], [place] [address] Dec, [facility] [address] [id number] [facility] [place] [address] Dec, [facility] [address] [id number] [address] [place] [address], [place] [address] Dec, [facility] [address] [id number] [address] [place] [address], [place] [address] Dec, [facility] [address] [id number] [address] [place] [address], [place] [address] Dec, [facility] [address] [id number] [address] [place] [address], [place] [address] Dec, [facility] [address] [id number] [address] [place] [address], [place] [address] Dec, [facility] [address] [id number] [address] [place] [address], [place] [address] Dec, [facility] [address] [id number] [address] [place] [address], [place] [address] Dec, [facility] [address] [id number] [address] [place] [address], [place] [address] Dec, [facility] [address] [id number] [address] [place] [address], [place] [address] Dec, [facility] [address] [id number] [address] [place] [address], [place] [address] Dec, [facility] [address] [id number] [address] [place] [address], [place] [address] Dec, [facility] [address] [id number] [address] [place] [address], [place] [address] Dec, [facility] [address] [id number] [address] [place] [address], [place] [address] Dec, [facility] [address] [id number] [address] [place] [address], [place] [address] Dec, [facility] [address] [id number] [address] [place] [address], [place] [address] 07 Dec, 2013 [facility] [address] [id number] [facility] [place] [address] 31 Nov, 2013 [facility] [address] [id number] [address] [place] [address], [place] [address] 31 Nov, 2013 [facility] [address] [id number] [facility] [place] [address] Nov, [facility] [address] [id number] [address] [place] [address], [place] [address] Nov, [facility] [address] [id number] [facility] [place] [address] 24 Nov, 2013 [facility] [address] [id number] [address] [place] [address], [place] [address] 24 Nov, 2013 [facility] [address] [id number] [address] [place] [address], [place] [address] Nov, [facility] [address] [id number] [address] [place] [address], [place] [address] 22 Nov, 2013 [facility] [address] [id number] [address] [place] [address], [place] [address] 18 Nov, 2013 [facility] [address] [id number] [address] [place] [address], [place] [address] 18 Nov, 2013 [facility] [address] [id number] [address] [place] [address], [place] [address] 18 Nov, 2013 [facility] [address] [id number] [address] [place] [address], [place] [address] 18 Nov, 2013 [facility] [address] [id number] [address] [place] [address], [place] [address] 14 Nov, 2013 [facility] [address] [id number] [address] [place] [address], [place] [address] 14 Nov, 2013 [facility] [address] [id number] [address] [place] [address], [place] [address] 06 Nov, 2013 [facility] [address] [id number] [address] [place] [address], [place] [address] Nov, [facility] [address] [id number] [address] [place] [address], [place] [address] Oct, [facility] [address] [id number] [address] [place] [address], [place] [address] Oct, [facility] [address] [id number] [address] [place] [address], [place] [address] Oct, [facility] [address] [id number] [address] [place] [address], [place] [address] Oct, [facility] [address] [id number] [address] [place] [address], [place] [address] Oct, [facility] [address] [id number] [address] [place] [address], [place] [address] Oct, [facility] [address] [id number] [address] [place] [address], [place] [address] Oct, [facility] [address] [id number] [address] [place] [address], [place] [address] Oct, [facility] [address] [id number] [address] [place] [address], [place] [address] Oct, [facility] [address] [id number] [address] [place] [address], [place] [address] Oct, [facility] [address] [id number] [address] [place] [address] Oct, [facility] [address] [id number] [address] [place] [address], [place] [address] Oct, [facility] [address] [id number] [address] [place] [address], [place] [address] Oct, [facility] [address] [id number] [address] [place] [address], [place] [address] Oct, [facility] [address] [id number] [address] [place] [address] Oct, [facility] [address] [id number] [address] [place] [address], [place] [address] Sep, [facility] [address] [id number] [address] [place] [address], [place] [address] Sep, [facility] [address] [id number] [address] [place] [address], [place] [address] Sep, [facility] [address] [id number] [address] [place] [address], [place] [address] Sep, [facility] [address] [id number] [address] [place] [address], [place] [address] Sep, [facility] [address] [id number] [address] [place] [address], [place] [address] Sep, [facility] [address] [id number] [address] [place] [address], [place] [address] Sep, [facility] [address] [id number] [address] [place] [address], [place] [address] Sep, [facility] [address] [id number] [address] [place] [address], [place] [address] Sep, [facility] [address] [id number] [address] [place] [address], [place] [address] Sep, [facility] [address] [id number] [address] [place] [address], [place] [address] Sep, [facility] [address] [id number] [address] [place] [address], [place] [address] Sep, [facility] [address] [id number] [address] [place] [address], [place] [address] Sep, [facility] [address] [id number] [address] [place] [address], [place] [address] Aug, [facility] [address] [id number] [address] [place] [address], [place] [address] Aug, [facility] [address] [id number] [address] [place] [address], [place] [address] 24 Aug, 2013 [facility] [address] [id number] [address] [place] [address], [place] [address] 24 Aug, 2013 [facility] [address] [id number] [address] [place] [address], [place] [address] 17 Aug, 2013 [facility] [address] [id number] [address] [place] [address], [place] [address] 17 Aug, 2013 [facility] [address] [id number] [address] [place] [address], [place] [address] 16 Aug, 2013 [facility] [address] [id number] [address] [place] [address], [place] [address] 16 Aug, 2013 [facility] [address] [id number] [address] [place] [address], [place] [address] Aug, [facility] [address] [id number] [address] [place] [address], [place] [address] Aug, [facility] [address] [id number] [address] [place] [address], [place] [address] Aug, [facility] [address] [id number] [address] [place] [address], [place] [address] Aug, [facility] [address] [id number] [address] [place] [address], [place] [address] Aug, [facility] [address] [id number] [address] [place] [address], [place] [address] Aug, [facility] [address] [id number] [address] [place] [address], [place] [address] Jul, [facility] [address] [id number] [address] [place] [address], [place] [address] Jul, [facility] [address] [id number] [address] [place] [address], [place] [address] 18 Jul, 2013 [facility] [address] [id number] [address] [place] [address], [place] [address] 18 Jul, 2013 [facility] [address] [id number] [address] [place] [address], [place] [address] 14 Jul, 2013 [facility] [address] [id number] [address] [place] [address], [place] [address] 14 Jul, 2013 [facility] [address] [id number] [address] [place] [address], [place] [address] 14 Jul, 2013 [facility] [address] [id number] [address] [place] [address] 14 Jul, 2013 [facility] [address] [id number] [address] [place] [address], [place] [address] 07 Jul, 2013 [facility] [address] [id number] [address] [place] [address] 07 Jul, 2013 [facility] [address] [id number] [address] [place] [address], [place] [address] 06 Jul, 2013 [facility] [address] [id number] [address] [place] [address] 06 Jul, 2013 [facility] [address] [id number] [address] [place] [address] 05 Jul, 2013 [facility] [address] [id number] [address] [place] [address] 05 Jul, 2013 [facility] [address] [id number] [address] [place] [address] 23 Jun, 2013 [facility] [address] [id number] [address] [place] [address] 23 Jun, 2013 [facility] [address] [id number] [address] [place] [address] 15 Jun, 2013 [facility] [address] [id number] [address] [place] [address] 15 Jun, 2013 [facility] [address] [id number] [address] [place] [address] 14 Jun, 2013 [facility] [address] [id number] [facility] [address] 24 Sep, 2012 [facility] [address] [id number] [address] [place] [address], [place] [address] 20 Sep, 2012 [facility] [address] [id number] [address] [place] [address], [place] [address] 20 Sep, 2012 [facility] [address] [id number] [address] [place] [address], [place] [address] 20 Sep, 2012 [facility] [address] [id number] [address] [place] [address], [place] [address] 19 Sep, 2012 [facility] [address] [id number] [address] [place] [address], [place] [address] 13 May, 2012 [facility] [address] [id number] [address] [place] [address], [place] [address] 12 May, 2012 [facility] [address] [id number] [address] [place] [address], [place] [address] 12 May, 2012 [facility] [address] [id number] [address] [place] [address], [place] [address] 11 Sep, 2012 [facility] [address] [id number] [address] [place] [address], [place] [address] 11 May, 2012 [facility] [address] [id number] [address] [place] [address], [place] [address] 11 Sep, 2012 [facility] [address] [id number] [address] [place] [address], [place] [address] 09 Sep, 2012 [facility] [address] [id number] [address] [place] [address], [place] [address] 05 Sep, 2012 [facility] [address] [id number] [address] [place] [address], [place] [address] 04 Sep, 2012 [facility] [address] [id number] [address] [place] [address], [place] [address] 03 Sep, 2012 [facility] [address] [id number] [address] [place] [address], [place] [address] Apr, [facility] [address] [id number] [address] [place] [address], [place] [address] Apr, [facility] [address] [id number] [address] [place] [address], [place] [address] Apr, [facility] [address] [id number] [address] [place] [address], [place] [address] Apr, [facility] [address] [id number] [address] [place] [address], [place] [address] Apr, [facility] [address] [id number] [address] [place] [address], [place] [address] Apr, [facility] [address] [id number] [address] [place] [address], [place] [address] Apr, [facility] [address] [id number] [address] [place] [address], [place] [address] Apr, [facility] [address] [id number] [address] [place] [address], [place] [address] Apr, [facility] [address] [id number] [address] [place] [address], [place] [address] Mar, [facility] [address] [id number] [address] [place] [address], [place] [address] Mar, [facility] [address] [id number] [address] [place] [address], [place] [address] Mar, [facility] [address] [id number] [address] [place] [address], [place] [address] Mar, [facility] [address] [id number] [address] [place] [address], [place] [address] Mar, [facility] [address] [id number] [address] [place] [address], [place] [address] Mar, [facility] [address] [id number] [address] [place] [address], [place] [address] Mar, [facility] [address] [id number] [address] [place] [address], [place] [address] Mar, [facility] [address] [id number] [address] [place] [address], [place] [address] Mar, [facility] [address] [id number] [address] [place] [address], [place] [address] Mar, [facility] [address] [id number] [address] [place] [address], [place] [address] Mar, [facility] [address] [id number] [address] [place] [address], [place] [address] Feb, [facility] [address] [id number] [address] [place] [address], [place] [address] Feb, [facility] [address] [id number] [address] [place] [address], [place] [address] Feb, [facility] [address] [id number] [address] [place] [address], [place] [address] Feb, [facility] [address] [id number] [address] [place] [address], [place] [address] Feb, [facility] [address] [id number] [address] [place] [address], [place] [address] Feb, [facility] [address] [id number] [address] [place] [address], [place] [address] Feb, [facility] [address] [id number] [address] [place] [address], [place] [address] Feb, [facility] [address] [id number] [address] [place] [address], [place] [address] Feb, [facility] [address] [id number] [address] [place] [address], [place] [address] January, [facility] [address] [id number] [address] [place] [address], [place] [address] January, [facility] [address] [id number] [address] [place] [address], [place] [address] January, [facility] [address] [id number] [address] [place] [address], [place] [address] January, [facility] [address] [id number] [address] [place] [address], [place] [address] January, [facility] [address] [id number] [address] [place] [address], [place] [address] January, [facility] [address] [id number] [address] [place] [address], [place] [address] January, [facility] [address] [id number] [address] [place] [address], [place] [address] January, [facility] [address] [id number] [address] [place] [address], [place] [address] January, [facility] [address] [id number] [address] [place] [address], [place] [address] January, [facility] [address] [id number] [address] [place] [address], [place] [address] January, [facility] [address] [id number] [address] [place] [address], [place] [address] January, [facility] [address] [id number] [address] [place] [address], [place] [address] January, [facility] [address] [id number] [address] [place] [address], [place] [address] January, [facility] [address] [id number] [address] [place] [address], [place] [address] January, [facility] [address] [id number] [address] [place] [address], [place] [address] January, [facility] [address] [id number] [address] [place] [address], [place] [address] January, [facility] [address] [id number] [address] [place] [address], [place] [address] January, [facility] [address] [id number] [address] [place] [address], [place] [address] January, [facility] [address] [id number] [address] [place] [address], [place] [address] January, [facility] [address] [id number] [address] [place] [address], [place] [address] January, [facility] [address] [id number] [address] [place] [address], [place] [address] January, [facility] [address] [id number] [address] [place] [address], [place] [address] January, [facility] [address] [id number] [address] [place] [address], [place] [address] Dec, [facility] [address] [id number] [address] [place] [address], [place] [address] Dec, [facility] [address] [id number] [address] [place] [address], [place] [address] Dec, [facility] [address] [id number] [address] [place] [address], [place] [address] Dec, [facility] [address] [id number] [address] [place] [address], [place] [address] Dec, [facility] [address] [id number] [address] [place] [address], [place] [address] Nov, [facility] [address] [id number] [address] [place] [address], [place] [address] Oct, [facility] [address] [id number] [address] [place] [address], [place] [address] Oct, [facility] [address] [id number] [address] [place] [address], [place] [address] Oct, [facility] [address] [id number] [address] [place] [address], [place] [address] Oct, [facility] [address] [id number] [address] [place] [address], [place] [address] Oct, [facility] [address] [id number] [address] [place] [address], [place] [address] Sep, [facility] [address] [id number] [address] [place] [address], [place] [address] Sep, [facility] [address] [id number] [address] [place] [address], [place] [address] Sep, [facility] [address] [id number] [address] [place] [address], [place] [address] Aug, [facility] [address] [id number] [address] [place] [address], [place] [address] Aug, [facility] [address] [id number] [address] [place] [address], [place] [address] Aug, [facility] [address] [id number] [address] [place] [address], [place] [address] Aug, [facility] [address] [id number] [address] [place] [address], [place] [address] Jul, [facility] [address] [id number] [address] [place] [address], [place] [address] Jul, [facility] [address] [id number] [address] [place] [address], [place] [address] Jul, [facility] [address] [id number] [address] [place] [address], [place] [address] Jul, [facility] [address] [id number] [address] [place] [address], [place] [address] Jul, [facility] [address] [id number] [address] [place] [address], [place] [address] Jul, [facility] [address] [id number] [address] [place] [address], [place] [address] Jun, [facility] [address] [id number] [address] [place] [address], [place] [address] Jun, [facility] [address] [id number] [address] [place] [address], [place] [address] Jun, [facility] [address] [id number] [address] [place] [address], [place] [address] Jun, [facility] [address] [id number] [address] [place] [address], [place] [address] Jun, [facility] [address] [id number] [address] [place] [address], [place] [address] Jun, [facility] [address] [id number] [address] [place] [address], [place] [address] Jun, [facility] [address] [id number] [address] [place] [address], [place] [address] Jun, [facility] [address] [id number] [address] [place] [address], [place] [address] Jun, [facility] [address] [id number] [address] [place] [address], [place] [address] Jun, [facility] [address] [id number] [address] [place] [address], [place] [address] 17 May, 2012 [facility] [address] [id number] [address] [place] [address], [place] [address] 08 May, 2012 [facility] [address] [id number] [address] [place] [address], [place] [address] 06 May, 2012 [facility] [address] [id number] [address] [place] [address], [place] [address] 30 Apr, 2012 [facility] [address] [id number] [address] [place] [address], [place] [address] 29 Apr, 2012 [facility] [address] [id number] [address] [place] [address], [place] [address] 14 Apr, 2012 [facility] [address] [id number] [address] [place] [address], [place] [address] Apr, [facility] [address] [id number] [address] [place] [address], [place] [address] Apr, [facility] [address] [id number] [address] [place] [id number] Apr, [facility] [address] [id number] [address] [place] [address], [place] [address] Apr, [facility] [address] [id number] [address] [place] [address], [place] [address] Apr, [facility] [address] [id number] [address] [place] [address], [place] [address] Apr, [facility] [address] [id number] [address] [place] [address], [place] [address] Mar, [facility] [address] [id number] [address] [place] [address], [place] [address] Mar, [facility] [address] [id number] [address] [place] [address], [place] [address] Mar, [facility] [address] [id number] [address] [place] [address], [place] [address] Mar, [facility] [address] [id number] [address] [place] [address], [place] [address] Feb, [facility] [address] [id number] [address] [place] [address], [place] [address] Feb, [facility] [address] [id number] [address] [place] [address], [place] [address] Feb, [facility] [address] [id number] [address] [place] [address], [place] [address] January, [facility] [address] [id number] [address] [place] [address], [place] [address] January, [facility] [address] [id number] [address] [place] [address], [place] [address] January, [facility] [address] [id number] [address] [place] [address], [place] [address] January, [facility] [address] [id number] [address] [place] [address], [place] [address] January, [facility] [address] [id number] [address] [place] [address], [place] [address] 30 Dec, 2011 [facility] [address] [id number] [address] [place] [address], [place] [address] Dec, [facility] [address] [id number] [address] [place] [address], [place] [address] 16 Dec, 2011 [facility] [address] [id number] [address] [place] [address], [place] [address] Oct, [facility] [address] [id number] [address] [place] [address], [place] [address] Oct, [facility] [address] [id number] [address] [place] [address], [place] [address] Oct, [facility] [address] [id number] [address] [place] [address], [place] [address] Sep, [facility] [address] [id number] [address] [place] [address], [place] [address] Sep, [facility] [address] [id number] [address] [place] [address], [place] [address] Aug, [facility] [address] [id number] [address] [place] [address], [place] [address] Jul, [facility] [address] [id number] [address] [place] [address], [place] [address] Jul, [facility] [address] [id number] [address] [place] [address], [place] [address] Mar, [facility] [address] [id number] [address] [place] [address], [place] [address] 10 Aug, 2010 [facility] [address] [id number] [address] [place] [address], [place] [address] 10 Jul, 2010 [facility] [address] [id number] [address] [place] [address], [place] [address] 04 Jul, 2010 [facility] [address] [id number] [address] [place] [address], [place] [address] 04 Jul, 2010 [facility] [address] [id number] [address] [place] [address], [place] [address] 04 Jul, 2010 [facility] [address] [id number] [address] [place] [id number] 14 Jun, 2010 [facility] [address] [id number] [address] [place] [address], [place] [address] 12 Jun, 2010 [facility] [address] [id number] [address] [place] [id number] 17 Apr, 2010 [facility] [address] [id number] [address] [place] [address], [place] [address] Aug, [facility] [address] [id number] [address] [place] [address] Jul, [facility] [address] [id number] [address] [place] [address] Jul, [facility] [address] [id number] [address] [place] [address] Jul, [facility] [address] [id number] [address] [place] [address] 23 Jun, 2009 [facility] [address] [id number] [address] [place] [id number] 10 May, 2009 [facility] [address] [id number] [address] [place] [id number] 14 Dec, 2008 [facility] [address] [id number] [address] [place] [id number] Nov, [facility] [address] [id number] [address] [place] [id number] 10 Oct, 2008 [facility] [address] [id number] [address] [place] [id number] 05 Aug, 2008 [facility] [address] [id number] [address] [place] [address] Aug, [facility] [address] [id number] [address] [place] [address] 28 Jun, 2008 IMMUNIZATIONS No Known Immunizations [...] x 3 day s 04/2012 Hospitalization History [facility] [place]- Right wrist injury 03/29/2018
--- OUTSIDE RECORDS SUMMARY | 2020-04-09 00:07 | XMS REPORT ---
Author Author Kateryna Turner Doctor Organization [facility] Address Unknown Phone Unavailable Care Team Providers Care Automobile Leasing Supervisor Name Role Phone Migration, Doctor Unavailable Unavailable PROBLEMS Type Condition ICD9-CM Code ZKA37-VH Code Onset Dates Condition S tatus SNOMED Code Problem Irregular menses N92.6 Active 801 98195 Problem Migraine with aura and without status migrainosu s, not intractable G43.109 Active 4423505 Problem Uncontrolled type 2 diabetes mellitus with hyperglycemia E11.65 Active 850367715 Problem Morbid obesity due to excess calories E66.01 Active 864939634 Problem RLS (restless legs syndrome) G25.81 A ctive 81896909 Problem Morbid obesity E66.01 Active 28240 6002 ALLERGIES No Information ENCOUNTERS Encounter Location Date Diagnosis [facility] [address] [facility] [id number] [address] [place] [id number] January, [facility] [address] [facility] [id number] [address] [place] [phone] Dec, [facility] [address] [facility] [id number] [address] [place] [phone] Dec, [facility] [address] [facility] [id number] [address] [place] [phone] Dec, Uncontrolled type 2 diabetes mellitus with hyperglycemia E11.65 [facility] [address] [id number] [address] [place] [id number] 07 Dec, 2019 [facility] [address] [id number] [address] [place] [phone] Dec, [facility] [address] [facility] [id number] [address] [place] [phone] Dec, [facility] [address] [facility] [id number] [address] [place] [phone] Nov, [facility] [address] [id number] [address] [place] [phone] 28 Nov, 2019 [facility] [address] [id number] [address] [place] [phone] 03 Nov, 2019 [facility] [address] [facility] [id number] [address] [place] [phone] 02 Nov, 2019 RLS (restless legs syndrome) G25.81 [facility] [address] [id number] [address] [place] [id number] 15 Oct, 2019 [facility] [address] [facility] [id number] [address] [place] [phone] 09 Oct, 2019 Influenza J11.1 [facility] [address] [facility] [id number] [address] [place] [phone] 16 Sep, 2019 [facility] [address] [facility] [id number] [address] [place] [phone] 14 Sep, 2019 [facility] [address] [facility] [id number] [address] [place] [phone] 14 Sep, 2019 [facility] [address] [id number] [address] [place] [phone] 13 Sep, 2019 [facility] [address] [facility] [id number] [address] [place] [phone] 10 Sep, 2019 Pneumonia of left lower lobe due to infectious organism J18.9 and Migraine with aura and without status migrainosus, not intractable G43.109 [facility] [address] [facility] [id number] [address] [place] [id number] 10 Sep, 2019 [facility] [address] [facility] [id number] [address] [place] [phone] 10 Sep, 2019 [facility] [address] [facility] [id number] [address] [place] [phone] 08 Sep, 2019 [facility] [address] [facility] [id number] [address] [place] [phone] 08 Sep, 2019 [facility] [address] [id number] [address] [place] [phone] 08 Sep, 2019 Pneumonia of left lower lobe due to infectious organism J18.9 and Migraine with aura and without status migrainosus, not intractable G43.109 [facility] [address] [id number] [address] [place] [phone] Aug, Irregular menses N92.6 ; Wel l woman exam Z01.419 ; Pelvic cramping R10.2 and Left breast lump N63.20 [facility] [address] [id number] [address] [place] [phone] Aug, [facility] [address] [facility] [id number] [address] [place] [phone] 17 Aug, 2019 Well woman exam Z01.419 ; Le ft breast lump N63.20 ; Irregular menses N92.6 ; Encounter for immunization Z23 ; Pelvic cramping R10.2 and Screening for cervical cancer Z12.4 [facility] [address] [facility] [id number] [address] [place] [phone] Aug, [facility] [address] [id number] [address] [place] [phone] Aug, [facility] [address] [facility] [id number] [address] [place] [phone] Aug, [facility] [address] [id number] [address] [place] [phone] Jul, [facility] [address] [facility] [id number] [address] [place] [phone] Jun, [facility] [address] [id number] [address] [place] [phone] Jun, [facility] [address] [facility] [id number] [address] [place] [phone] 14 Jun, 2019 [facility] [address] [facility] [id number] [address] [place] [phone] Jun, BMI 50.0-59.9, adult Z68.43 [facility] [address] [place] [id number] [address] [place] [phone] Jun, [facility] [address] [place] [id number] [place] [phone] May, Acute non-recurrent sinusiti s, unspecified location J01.90 ; Diarrhea, unspecified R19.7 ; Vomiting, unspecified R11.10 and Morbid obesity E66.01 [place] [address] [phone] Apr, [place] [address] [id number] Apr, Anemia due to other cause, n ot classified D64.89 and D-dimer, elevated R79.89 [place] [address] [id number] Apr, [place] [address] [phone] Apr, [place] [address] [phone] Mar, Anemia due to other cause, n ot classified D64.89 and D-dimer, elevated R79.89 [place] [address] [address] Mar, Leg edema, right R60.0 ; Hig h risk medication use Z79.899 and Morbid obesity E66.01 [facility] [address] [place] [id number] [address] [place] [phone] Mar, BMI 50.0-59.9, adult Z68.43 [place] [address] [id number] Mar, [place] [address] [id number] January, Uncontrolled type 2 diabetes mellitus with hyperglycemia E11.65 ; RLS (restless legs syndrome) G25.81 and Morbid obesity E66.01 [facility] [address] [id number] [address] [place] [id number] 15 Oct, 2018 Lipoma of right lower extrem ity D17.23 [facility] [address] [id number] [address] [place] [id number] 05 Oct, 2018 Lipoma of right lower extrem ity D17.23 [facility] [address] [id number] [address] [place] [phone] Sep, [facility] [address] [id number] [address] [place] [phone] Sep, [facility] [address] [id number] [address] [place] [phone] Sep, [facility] [address] [facility] [id number] [address] [place] [phone] Sep, [facility] [address] [facility] [id number] [address] [place] [phone] Sep, [facility] [address] [facility] [id number] [address] [place] [id number] Aug, Uncontrolled type 2 diabetes mellitus with hyperglycemia E11.65 ; Morbid obesity due to excess calories E66.01 ; Lipoma of torso D17.1 and BMI 50.0-59.9, adult Z68.43 [facility] [address] [facility] [id number] [address] [place] [phone] Jun, Encounter for immunization Z 23 [facility] [address] [id number] [address] [place] [phone] Jul, [facility] [address] [facility] [id number] [address] [place] [phone] Jun, Encounter for immunization Z 23 [facility] [address] [id number] [address] [place] [phone] May, [facility] [address] [facility] [id number] [address] [place] [phone] Jun, Encounter for immunization Z 23 [facility] [address] [id number] [address] [place] [address], [place] [address] 29 May, 2015 [facility] [address] [id number] [address] [place] [address], [place] [address] May, [facility] [address] [id number] [address] [place] [address], [place] [address] Apr, [facility] [address] [id number] [address] [place] [address], [place] [address] Feb, [facility] [address] [id number] [address] [place] [address], [place] [address] Feb, [facility] [address] [id number] [address] [place] [address], [place] [address] Feb, [facility] [address] [id number] [address] [place] [address], [place] [address] January, [facility] [address] [id number] [address] [place] [address], [place] [address] January, [facility] [address] [id number] [address] [place] [address], [place] [address] Dec, [facility] [address] [id number] [address] [place] [address], [place] [address] Dec, [facility] [address] [id number] [address] [place] [phone] Nov, [facility] [address] [id number] [address] [place] [id number] Nov, [facility] [address] [id number] [address] [place] [phone] Nov, [facility] [address] [id number] [address] [place] [id number] Nov, [facility] [address] [id number] [address] [place] [address], [place] [address] Nov, [facility] [address] [id number] [address] [place] [address], [place] [address] Nov, [facility] [address] [id number] [address] [place] [address], [place] [address] Nov, [facility] [address] [id number] [address] [place] [address], [place] [address] 18 Oct, 2014 [facility] [address] [id number] [address] [place] [address], [place] [address] Oct, [facility] [address] [id number] [address] [place] [address], [place] [address] Oct, [facility] [address] [id number] [address] [place] [address], [place] [address] Oct, [facility] [address] [id number] [address] [place] [address], [place] [address] Oct, [facility] [address] [id number] [address] [place] [address], [place] [address] Sep, [facility] [address] [id number] [address] [place] [address], [place] [address] Sep, [facility] [address] [id number] [address] [place] [address], [place] [address] Sep, [facility] [address] [id number] [address] [place] [address], [place] [address] Sep, [facility] [address] [id number] [address] [place] [address], [place] [address] Sep, [facility] [address] [id number] [address] [place] [address], [place] [address] Sep, [facility] [address] [id number] [address] [place] [address], [place] [address] Sep, [facility] [address] [id number] [address] [place] [address], [place] [address] Sep, [facility] [address] [id number] [address] [place] [address], [place] [address] Sep, [facility] [address] [id number] [address] [place] [address], [place] [address] Sep, [facility] [address] [id number] [address] [place] [address], [place] [address] Aug, [facility] [address] [id number] [address] [place] [address], [place] [address] Aug, [facility] [address] [id number] [address] [place] [address], [place] [address] Aug, [facility] [address] [id number] [address] [place] [address], [place] [address] Aug, [facility] [address] [id number] [address] [place] [address], [place] [address] Aug, [facility] [address] [id number] [address] [place] [address], [place] [address] Aug, [facility] [address] [id number] [address] [place] [address], [place] [address] Aug, [facility] [address] [id number] [address] [place] [address], [place] [address] Aug, [facility] [address] [id number] [address] [place] [address], [place] [address] Aug, [facility] [address] [id number] [address] [place] [address], [place] [address] Aug, [facility] [address] [id number] [address] [place] [address], [place] [address] Aug, [facility] [address] [id number] [address] [place] [address], [place] [address] Aug, [facility] [address] [id number] [address] [place] [address], [place] [address] Aug, [facility] [address] [id number] [address] [place] [address], [place] [address] Aug, [facility] [address] [id number] [address] [place] [address], [place] [address] 17 Aug, 2014 [facility] [address] [id number] [address] [place] [address], [place] [address] 17 Aug, 2014 [facility] [address] [id number] [address] [place] [address], [place] [address] 16 Aug, 2014 [facility] [address] [id number] [address] [place] [address], [place] [address] 16 Aug, 2014 [facility] [address] [id number] [address] [place] [address], [place] [address] Aug, [facility] [address] [id number] [address] [place] [address], [place] [address] Aug, [facility] [address] [id number] [address] [place] [address], [place] [address] Aug, [facility] [address] [id number] [address] [place] [address], [place] [address] Aug, [facility] [address] [id number] [address] [place] [address], [place] [address] 05 Aug, 2014 [facility] [address] [id number] [address] [place] [address], [place] [address] 05 Aug, 2014 [facility] [address] [id number] [address] [place] [address], [place] [address] Jul, [facility] [address] [id number] [address] [place] [address], [place] [address] Jul, [facility] [address] [id number] [address] [place] [address], [place] [address] Jun, [facility] [address] [id number] [address] [place] [address], [place] [address] Jun, [facility] [address] [id number] [address] [place] [address], [place] [address] Jun, [facility] [address] [id number] [address] [place] [address], [place] [address] Jun, [facility] [address] [id number] [address] [place] [address], [place] [address] 15 Jun, 2014 [facility] [address] [id number] [address] [place] [address], [place] [address] 15 Jun, 2014 [facility] [address] [id number] [address] [place] [address], [place] [address] 14 Jun, 2014 [facility] [address] [id number] [address] [place] [address], [place] [address] 14 Jun, 2014 [facility] [address] [id number] [address] [place] [address], [place] [address] 13 Jun, 2014 [facility] [address] [id number] [address] [place] [address], [place] [address] 13 Jun, 2014 [facility] [address] [id number] [address] [place] [address], [place] [address] 13 Jun, 2014 [facility] [address] [id number] [address] [place] [address], [place] [address] Jun, [facility] [address] [id number] [address] [place] [address], [place] [address] 06 Jun, 2014 [facility] [address] [id number] [address] [place] [address], [place] [address] 06 Jun, 2014 [facility] [address] [id number] [address] [place] [address] 26 May, 2013 [facility] [address] [id number] [address] [place] [address] 26 May, 2013 [facility] [address] [id number] [address] [place] [address], [place] [address] 22 May, 2013 [facility] [address] [id number] [address] [place] [address], [place] [address] 22 May, 2013 [facility] [address] [id number] [address] [place] [address], [place] [address] 04 May, 2013 [facility] [address] [id number] [address] [place] [address] May, [facility] [address] [id number] [address] [place] [address], [place] [address] May, [facility] [address] [id number] [address] [place] [address], [place] [address] May, [facility] [address] [id number] [address] [place] [address], [place] [address] Apr, [facility] [address] [id number] [address] [place] [address], [place] [address] Apr, [facility] [address] [id number] [address] [place] [address], [place] [address] Apr, [facility] [address] [id number] [address] [place] [address], [place] [address] Apr, [facility] [address] [id number] [address] [place] [address], [place] [address] Apr, [facility] [address] [id number] [address] [place] [address], [place] [address] Apr, [facility] [address] [id number] [address] [place] [address], [place] [address] Apr, [facility] [address] [id number] [address] [place] [address], [place] [address] Apr, [facility] [address] [id number] [address] [place] [address], [place] [address] Apr, [facility] [address] [id number] [address] [place] [address], [place] [address] Mar, [facility] [address] [id number] [address] [place] [address], [place] [address] Mar, [facility] [address] [id number] [address] [place] [address], [place] [address] Mar, [facility] [address] [id number] [address] [place] [address], [place] [address] Feb, [facility] [address] [id number] [address] [place] [address] 30 Feb, 2014 [facility] [address] [id number] [facility] [place] [address] Feb, [facility] [address] [id number] [facility] [place] [address] Feb, [facility] [address] [id number] [facility] [place] [address] Feb, [facility] [address] [id number] [facility] [place] [address] 17 Feb, 2014 [facility] [address] [id number] [address] [place] [address], [place] [address] Feb, [facility] [address] [id number] [address] [place] [address], [place] [address] Feb, [facility] [address] [id number] [address] [place] [address], [place] [address] Feb, [facility] [address] [id number] [address] [place] [address], [place] [address] Feb, [facility] [address] [id number] [address] [place] [address], [place] [address] Feb, [facility] [address] [id number] [address] [place] [address], [place] [address] Feb, [facility] [address] [id number] [address] [place] [address], [place] [address] Feb, [facility] [address] [id number] [address] [place] [address], [place] [address] Feb, [facility] [address] [id number] [address] [place] [address], [place] [address] Feb, [facility] [address] [id number] [address] [place] [address], [place] [address] Feb, [facility] [address] [id number] [address] [place] [address], [place] [address] January, [facility] [address] [id number] [facility] [place] [address] January, [facility] [address] [id number] [address] [place] [address], [place] [address] January, [facility] [address] [id number] [address] [place] [address], [place] [address] January, [facility] [address] [id number] [address] [place] [address], [place] [address] January, [facility] [address] [id number] [address] [place] [address], [place] [address] January, [facility] [address] [id number] [address] [place] [address], [place] [address] January, [facility] [address] [id number] [address] [place] [address], [place] [address] January, [facility] [address] [id number] [address] [place] [address], [place] [address] January, [facility] [address] [id number] [address] [place] [address], [place] [address] January, [facility] [address] [id number] [address] [place] [address], [place] [address] January, [facility] [address] [id number] [address] [place] [address], [place] [address] January, [facility] [address] [id number] [address] [place] [address], [place] [address] January, [facility] [address] [id number] [address] [place] [address], [place] [address] January, [facility] [address] [id number] [address] [place] [address] [address] January, [facility] [address] [id number] [address] [place] [address], [place] [address] January, [facility] [address] [id number] [address] [place] [address], [place] [address] January, [facility] [address] [id number] [address] [place] [address], [place] [address] January, [facility] [address] [id number] [address] [place] [address], [place] [address] January, [facility] [address] [id number] [address] [place] [address], [place] [address] January, [facility] [address] [id number] [address] [place] [address], [place] [address] January, [facility] [address] [id number] [address] [place] [address], [place] [address] January, [facility] [address] [id number] [address] [place] [address], [place] [address] January, [facility] [address] [id number] [address] [place] [address], [place] [address] January, [facility] [address] [id number] [address] [place] [address], [place] [address] January, [facility] [address] [id number] [address] [place] [address], [place] [address] January, [facility] [address] [id number] [address] [place] [address], [place] [address] Dec, [facility] [address] [id number] [address] [place] [address], [place] [address] Dec, [facility] [address] [id number] [address] [place] [address], [place] [address] Dec, [facility] [address] [id number] [address] [place] [address], [place] [address] Dec, [facility] [address] [id number] [address] [place] [address], [place] [address] Dec, [facility] [address] [id number] [address] [place] [address], [place] [address] Dec, [facility] [address] [id number] [facility] [place] [address] Dec, [facility] [address] [id number] [address] [place] [address], [place] [address] Dec, [facility] [address] [id number] [address] [place] [address], [place] [address] Dec, [facility] [address] [id number] [address] [place] [address], [place] [address] Dec, [facility] [address] [id number] [address] [place] [address], [place] [address] Dec, [facility] [address] [id number] [address] [place] [address], [place] [address] Dec, [facility] [address] [id number] [address] [place] [address], [place] [address] Dec, [facility] [address] [id number] [address] [place] [address], [place] [address] Dec, [facility] [address] [id number] [address] [place] [address], [place] [address] Dec, [facility] [address] [id number] [address] [place] [address], [place] [address] Dec, [facility] [address] [id number] [address] [place] [address], [place] [address] Dec, [facility] [address] [id number] [address] [place] [address], [place] [address] Dec, [facility] [address] [id number] [address] [place] [address], [place] [address] Dec, [facility] [address] [id number] [address] [place] [address], [place] [address] Dec, [facility] [address] [id number] [address] [place] [address], [place] [address] Dec, [facility] [address] [id number] [address] [place] [address], [place] [address] 07 Dec, 2013 [facility] [address] [id number] [facility] [place] [address] 31 Nov, 2013 [facility] [address] [id number] [address] [place] [address], [place] [address] 31 Nov, 2013 [facility] [address] [id number] [facility] [place] [address] Nov, [facility] [address] [id number] [address] [place] [address], [place] [address] Nov, [facility] [address] [id number] [facility] [place] [address] 24 Nov, 2013 [facility] [address] [id number] [address] [place] [address], [place] [address] 24 Nov, 2013 [facility] [address] [id number] [address] [place] [address], [place] [address] Nov, [facility] [address] [id number] [address] [place] [address], [place] [address] 22 Nov, 2013 [facility] [address] [id number] [address] [place] [address], [place] [address] 18 Nov, 2013 [facility] [address] [id number] [address] [place] [address], [place] [address] 18 Nov, 2013 [facility] [address] [id number] [address] [place] [address], [place] [address] 18 Nov, 2013 [facility] [address] [id number] [address] [place] [address], [place] [address] 18 Nov, 2013 [facility] [address] [id number] [address] [place] [address], [place] [address] 14 Nov, 2013 [facility] [address] [id number] [address] [place] [address], [place] [address] 14 Nov, 2013 [facility] [address] [id number] [address] [place] [address], [place] [address] 06 Nov, 2013 [facility] [address] [id number] [address] [place] [address], [place] [address] Nov, [facility] [address] [id number] [address] [place] [address], [place] [address] Oct, [facility] [address] [id number] [address] [place] [address], [place] [address] Oct, [facility] [address] [id number] [address] [place] [address], [place] [address] Oct, [facility] [address] [id number] [address] [place] [address], [place] [address] Oct, [facility] [address] [id number] [address] [place] [address], [place] [address] Oct, [facility] [address] [id number] [address] [place] [address], [place] [address] Oct, [facility] [address] [id number] [address] [place] [address], [place] [address] Oct, [facility] [address] [id number] [address] [place] [address], [place] [address] Oct, [facility] [address] [id number] [address] [place] [address], [place] [address] Oct, [facility] [address] [id number] [address] [place] [address], [place] [address] Oct, [facility] [address] [id number] [address] [place] [address] Oct, [facility] [address] [id number] [address] [place] [address], [place] [address] Oct, [facility] [address] [id number] [address] [place] [address], [place] [address] Oct, [facility] [address] [id number] [address] [place] [address], [place] [address] Oct, [facility] [address] [id number] [address] [place] [address] Oct, [facility] [address] [id number] [address] [place] [address], [place] [address] Sep, [facility] [address] [id number] [address] [place] [address], [place] [address] Sep, [facility] [address] [id number] [address] [place] [address], [place] [address] Sep, [facility] [address] [id number] [address] [place] [address], [place] [address] Sep, [facility] [address] [id number] [address] [place] [address], [place] [address] Sep, [facility] [address] [id number] [address] [place] [address], [place] [address] Sep, [facility] [address] [id number] [address] [place] [address], [place] [address] Sep, [facility] [address] [id number] [address] [place] [address], [place] [address] Sep, [facility] [address] [id number] [address] [place] [address], [place] [address] Sep, [facility] [address] [id number] [address] [place] [address], [place] [address] Sep, [facility] [address] [id number] [address] [place] [address], [place] [address] Sep, [facility] [address] [id number] [address] [place] [address], [place] [address] Sep, [facility] [address] [id number] [address] [place] [address], [place] [address] Sep, [facility] [address] [id number] [address] [place] [address], [place] [address] Aug, [facility] [address] [id number] [address] [place] [address], [place] [address] Aug, [facility] [address] [id number] [address] [place] [address], [place] [address] 24 Aug, 2013 [facility] [address] [id number] [address] [place] [address], [place] [address] 24 Aug, 2013 [facility] [address] [id number] [address] [place] [address], [place] [address] 17 Aug, 2013 [facility] [address] [id number] [address] [place] [address], [place] [address] 17 Aug, 2013 [facility] [address] [id number] [address] [place] [address], [place] [address] 16 Aug, 2013 [facility] [address] [id number] [address] [place] [address], [place] [address] 16 Aug, 2013 [facility] [address] [id number] [address] [place] [address], [place] [address] Aug, [facility] [address] [id number] [address] [place] [address], [place] [address] Aug, [facility] [address] [id number] [address] [place] [address], [place] [address] Aug,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
--- OUTSIDE RECORDS SUMMARY | 2020-04-09 00:08 | XMS REPORT ---
Author Author Kateryna Turner Doctor Organization [facility] Address Unknown Phone Unavailable Care Team Providers Care Missing Persons Investigator Name Role Phone Migration, Doctor Unavailable Unavailable PROBLEMS Type Condition ICD9-CM Code [id number] Code Onset Dates Condition S tatus SNOMED Code Problem Irregular menses N92.6 Active 801 24941 Problem Migraine with aura and without status migrainosu s, not intractable G43.109 Active 4751723 Problem Uncontrolled type 2 diabetes mellitus with hyperglycemia E11.65 Active 083234348 Problem Morbid obesity due to excess calories E66.01 Active 565787290 Problem RLS (restless legs syndrome) G25.81 A ctive 28278162 Problem Morbid obesity E66.01 Active 73761 6002 ALLERGIES No Information ENCOUNTERS Encounter Location Date Diagnosis [facility] [address] [facility] [id number] [address] [place] [phone] January, [facility] [address] [facility] [id number] [address] [place] [phone] Dec, [facility] [address] [facility] [id number] [address] [place] [phone] Dec, [facility] [address] [facility] [id number] [address] [place] [phone] Dec, Uncontrolled type 2 diabetes mellitus with hyperglycemia E11.65 [facility] [address] [id number] [address] [place] [id number] 07 Dec, 2019 [facility] [address] [id number] [address] [place] [phone] Dec, [facility] [address] [facility] [id number] [address] [place] [phone] Dec, [facility] [address] [facility] [id number] [address] [place] [phone] Nov, [facility] [address] [id number] [address] [place] [id number] 28 Nov, 2019 [facility] [address] [id number] [address] [place] [phone] 03 Nov, 2019 [facility] [address] [facility] [id number] [address] [place] [phone] 02 Nov, 2019 RLS (restless legs syndrome) G25.81 [facility] [address] [id number] [address] [place] [phone] 15 Oct, 2019 [facility] [address] [facility] [id number] [address] [place] [phone] 09 Oct, 2019 Influenza J11.1 [facility] [address] [facility] [id number] [address] [place] [phone] 16 Sep, 2019 [facility] [address] [facility] [id number] [address] [place] [phone] 14 Sep, 2019 [facility] [address] [facility] [id number] [address] [place] [phone] 14 Sep, 2019 [facility] [address] [id number] [address] [place] [phone] 13 Sep, 2019 [facility] [address] [facility] [id number] [address] [place] [phone] 10 Sep, 2019 Pneumonia of left lower lobe due to infectious organism J18.9 and Migraine with aura and without status migrainosus, not intractable G43.109 [facility] [address] [facility] [id number] [address] [place] [phone] 10 Sep, 2019 [facility] [address] [facility] [id number] [address] [place] [phone] 10 Sep, 2019 [facility] [address] [facility] [id number] [address] [place] [phone] 08 Sep, 2019 [facility] [address] [facility] [id number] [address] [place] [id number] 08 Sep, 2019 [facility] [address] [id number] [address] [place] [phone] 08 Sep, 2019 Pneumonia of left lower lobe due to infectious organism J18.9 and Migraine with aura and without status migrainosus, not intractable G43.109 [facility] [address] [id number] [address] [place] [phone] Aug, Irregular menses N92.6 ; Wel l woman exam Z01.419 ; Pelvic cramping R10.2 and Left breast lump N63.20 [facility] [address] [id number] [address] [place] [phone] Aug, [facility] [address] [facility] [id number] [address] [place] [phone] 17 Aug, 2019 Well woman exam Z01.419 ; Le ft breast lump N63.20 ; Irregular menses N92.6 ; Encounter for immunization Z23 ; Pelvic cramping R10.2 and Screening for cervical cancer Z12.4 [facility] [address] [facility] [id number] [address] [place] [phone] Aug, [facility] [address] [id number] [address] [place] [phone] Aug, [facility] [address] [facility] [id number] [address] [place] [phone] Aug, [facility] [address] [id number] [address] [place] [phone] Jul, [facility] [address] [facility] [id number] [address] [place] [phone] Jun, [facility] [address] [id number] [address] [place] [phone] Jun, [facility] [address] [facility] [id number] [address] [place] [phone] 14 Jun, 2019 [facility] [address] [facility] [id number] [address] [place] [phone] Jun, BMI 50.0-59.9, adult Z68.43 [facility] [address] [place] [id number] [address] [place] [phone] Jun, [facility] [address] [place] [id number] [place] [phone] May, Acute non-recurrent sinusiti s, unspecified location J01.90 ; Diarrhea, unspecified R19.7 ; Vomiting, unspecified R11.10 and Morbid obesity E66.01 [place] [address] [phone] Apr, [place] [address] [address] Apr, Anemia due to other cause, n ot classified D64.89 and D-dimer, elevated R79.89 [place] [address] [address] Apr, [place] [address] [id number] Apr, [place] [address] [phone] Mar, Anemia due to other cause, n ot classified D64.89 and D-dimer, elevated R79.89 [place] [address] [phone] Mar, Leg edema, right R60.0 ; Hig h risk medication use Z79.899 and Morbid obesity E66.01 [facility] [address] [place] [id number] [address] [place] [phone] Mar, BMI 50.0-59.9, adult Z68.43 [place] [address] [id number] Mar, [place] [address] [phone] January, Uncontrolled type 2 diabetes mellitus with hyperglycemia E11.65 ; RLS (restless legs syndrome) G25.81 and Morbid obesity E66.01 [facility] [address] [id number] [address] [place] [phone] 15 Oct, 2018 Lipoma of right lower extrem ity D17.23 [facility] [address] [id number] [address] [place] [phone] 05 Oct, 2018 Lipoma of right lower extrem ity D17.23 [facility] [address] [id number] [address] [place] [phone] Sep, [facility] [address] [id number] [address] [place] [phone] Sep, [facility] [address] [id number] [address] [place] [phone] Sep, [facility] [address] [facility] [id number] [address] [place] [phone] Sep, [facility] [address] [facility] [id number] [address] [place] [phone] Sep, [facility] [address] [facility] [id number] [address] [place] [phone] Aug, Uncontrolled type 2 diabetes mellitus with hyperglycemia E11.65 ; Morbid obesity due to excess calories E66.01 ; Lipoma of torso D17.1 and BMI 50.0-59.9, adult Z68.43 [facility] [address] [facility] [id number] [address] [place] [id number] Jun, Encounter for immunization Z 23 [facility] [address] [id number] [address] [place] [phone] Jul, [facility] [address] [facility] [id number] [address] [place] [phone] Jun, Encounter for immunization Z 23 [facility] [address] [id number] [address] [place] [phone] May, [facility] [address] [facility] [id number] [address] [place] [phone] Jun, Encounter for immunization Z 23 [facility] [address] [id number] [address] [place] [address], [place] [id number] 29 May, 2015 [facility] [address] [id number] [address] [place] [address], [place] [phone] May, [facility] [address] [id number] [address] [place] [address], [place] [id number] Apr, [facility] [address] [id number] [address] [place] [address], [place] [id number] Feb, [facility] [address] [id number] [address] [place] [address], [place] [id number] Feb, [facility] [address] [id number] [address] [place] [address], [place] [id number] Feb, [facility] [address] [id number] [address] [place] [address], [place] [id number] January, [facility] [address] [id number] [address] [place] [address], [place] [phone] January, [facility] [address] [id number] [address] [place] [address], [place] [id number] Dec, [facility] [address] [id number] [address] [place] [address], [place] [id number] Dec, [facility] [address] [id number] [address] [place] [phone] Nov, [facility] [address] [id number] [address] [place] [phone] Nov, [facility] [address] [id number] [address] [place] [phone] Nov, [facility] [address] [id number] [address] [place] [phone] Nov, [facility] [address] [id number] [address] [place] [address], [place] [phone] Nov, [facility] [address] [id number] [address] [place] [address], [place] [address] Nov, [facility] [address] [id number] [address] [place] [address], [place] [id number] Nov, [facility] [address] [id number] [address] [place] [address], [place] [id number] 18 Oct, 2014 [facility] [address] [id number] [address] [place] [address], [place] [id number] Oct, [facility] [address] [id number] [address] [place] [address], [place] [id number] Oct, [facility] [address] [id number] [address] [place] [address], [place] [id number] Oct, [facility] [address] [id number] [address] [place] [address], [place] [id number] Oct, [facility] [address] [id number] [address] [place] [address], [place] [address] Sep, [facility] [address] [id number] [address] [place] [address], [place] [id number] Sep, [facility] [address] [id number] [address] [place] [address], [place] [id number] Sep, [facility] [address] [id number] [address] [place] [address], [place] [id number] Sep, [facility] [address] [id number] [address] [place] [address], [place] [address] Sep, [facility] [address] [id number] [address] [place] [address], [place] [id number] Sep, [facility] [address] [id number] [address] [place] [address], [place] [address] Sep, [facility] [address] [id number] [address] [place] [address], [place] [address] Sep, [facility] [address] [id number] [address] [place] [address], [place] [address] Sep, [facility] [address] [id number] [address] [place] [address], [place] [id number] Sep, [facility] [address] [id number] [address] [place] [address], [place] [address] Aug, [facility] [address] [id number] [address] [place] [address], [place] [address] Aug, [facility] [address] [id number] [address] [place] [address], [place] [address] Aug, [facility] [address] [id number] [address] [place] [address], [place] [id number] Aug, [facility] [address] [id number] [address] [place] [address], [place] [address] Aug, [facility] [address] [id number] [address] [place] [address], [place] [address] Aug, [facility] [address] [id number] [address] [place] [address], [place] [address] Aug, [facility] [address] [id number] [address] [place] [address], [place] [address] Aug, [facility] [address] [id number] [address] [place] [address], [place] [address] Aug, [facility] [address] [id number] [address] [place] [address], [place] [address] Aug, [facility] [address] [id number] [address] [place] [address], [place] [address] Aug, [facility] [address] [id number] [address] [place] [address], [place] [address] Aug, [facility] [address] [id number] [address] [place] [address], [place] [address] Aug, [facility] [address] [id number] [address] [place] [address], [place] [address] Aug, [facility] [address] [id number] [address] [place] [address], [place] [address] 17 Aug, 2014 [facility] [address] [id number] [address] [place] [address], [place] [address] 17 Aug, 2014 [facility] [address] [id number] [address] [place] [address], [place] [address] 16 Aug, 2014 [facility] [address] [id number] [address] [place] [address], [place] [address] 16 Aug, 2014 [facility] [address] [id number] [address] [place] [address], [place] [address] Aug, [facility] [address] [id number] [address] [place] [address], [place] [address] Aug, [facility] [address] [id number] [address] [place] [address], [place] [address] Aug, [facility] [address] [id number] [address] [place] [address], [place] [address] Aug, [facility] [address] [id number] [address] [place] [address], [place] [address] 05 Aug, 2014 [facility] [address] [id number] [address] [place] [address], [place] [address] [address], [address] [facility] [address] [id number] [address] [place] [address], [place] [address] Jul, [facility] [address] [id number] [address] [place] [address], [place] [address] Jul, [facility] [address] [id number] [address] [place] [address], [place] [address] Jun, [facility] [address] [id number] [address] [place] [address], [place] [address] Jun, [facility] [address] [id number] [address] [place] [address], [place] [address] Jun, [facility] [address] [id number] [address] [place] [address], [place] [address] Jun, [facility] [address] [id number] [address] [place] [address], [place] [address] 15 Jun, 2014 [facility] [address] [id number] [address] [place] [address], [place] [address] 15 Jun, 2014 [facility] [address] [id number] [address] [place] [address], [place] [id number] 14 Jun, 2014 [facility] [address] [id number] [address] [place] [address], [place] [address] 14 Jun, 2014 [facility] [address] [id number] [address] [place] [address], [place] [address] 13 Jun, 2014 [facility] [address] [id number] [address] [place] [address], [place] [address] 13 Jun, 2014 [facility] [address] [id number] [address] [place] [address], [place] [id number] 13 Jun, 2014 [facility] [address] [id number] [address] [place] [address], [place] [address] Jun, [facility] [address] [id number] [address] [place] [address], [place] [address] 06 Jun, 2014 [facility] [address] [id number] [address] [place] [address], [place] [id number] 06 Jun, 2014 [facility] [address] [id number] [address] [place] [id number] 26 May, 2013 [facility] [address] [id number] [address] [place] [id number] 26 May, 2013 [facility] [address] [id number] [address] [place] [address], [place] [id number] 22 May, 2013 [facility] [address] [id number] [address] [place] [address], [place] [id number] 22 May, 2013 [facility] [address] [id number] [address] [place] [address], [place] [address] 04 May, 2013 [facility] [address] [id number] [address] [place] [id number] May, [facility] [address] [id number] [address] [place] [address], [place] [address] May, [facility] [address] [id number] [address] [place] [address], [place] [address] May, [facility] [address] [id number] [address] [place] [address], [place] [address] Apr, [facility] [address] [id number] [address] [place] [address], [place] [address] Apr, [facility] [address] [id number] [address] [place] [address], [place] [id number] Apr, [facility] [address] [id number] [address] [place] [address], [place] [id number] Apr, [facility] [address] [id number] [address] [place] [address], [place] [id number] Apr, [facility] [address] [id number] [address] [place] [address], [place] [id number] Apr, [facility] [address] [id number] [address] [place] [address], [place] [id number] Apr, [facility] [address] [id number] [address] [place] [address], [place] [id number] Apr, [facility] [address] [id number] [address] [place] [address], [place] [id number] Apr, [facility] [address] [id number] [address] [place] [address], [place] [id number] Mar, [facility] [address] [id number] [address] [place] [address], [place] [id number] Mar, [facility] [address] [id number] [address] [place] [address], [place] [id number] Mar, [facility] [address] [id number] [address] [place] [address], [place] [id number] Feb, [facility] [address] [id number] [address] [place] [id number] 30 Feb, 2014 [facility] [address] [id number] [facility] [place] [address] Feb, [facility] [address] [id number] [address] [place] [address] Feb, [facility] [address] [id number] [address] [place] [id number] Feb, [facility] [address] [id number] [address] [place] [id number] 17 Feb, 2014 [facility] [address] [id number] [address] [place] [address], [place] [address] Feb, [facility] [address] [id number] [address] [place] [address], [place] [id number] Feb, [facility] [address] [id number] [address] [place] [address], [place] [id number] Feb, [facility] [address] [id number] [address] [place] [address], [place] [id number] Feb, [facility] [address] [id number] [address] [place] [address], [place] [address] Feb, [facility] [address] [id number] [address] [place] [address], [place] [address] Feb, [facility] [address] [id number] [address] [place] [address], [place] [address] Feb, [facility] [address] [id number] [address] [place] [address], [place] [address] Feb, [facility] [address] [id number] [address] [place] [address], [place] [address] Feb, [facility] [address] [id number] [address] [place] [address], [place] [address] Feb, [facility] [address] [id number] [address] [place] [address], [place] [id number] January, [facility] [address] [id number] [address] [place] [address] January, [facility] [address] [id number] [address] [place] [address], [place] [id number] January, [facility] [address] [id number] [address] [place] [address], [place] [id number] January, [facility] [address] [id number] [address] [place] [address], [place] [id number] January, [facility] [address] [id number] [address] [place] [address], [place] [id number] January, [facility] [address] [id number] [address] [place] [address], [place] [address] January, [facility] [address] [id number] [address] [place] [address], [place] [id number] January, [facility] [address] [id number] [address] [place] [address], [place] [id number] January, [facility] [address] [id number] [address] [place] [address], [place] [address] January, [facility] [address] [id number] [address] [place] [address], [place] [id number] January, [facility] [address] [id number] [address] [place] [address], [place] [id number] January, [facility] [address] [id number] [address] [place] [address], [place] [id number] January, [facility] [address] [id number] [address] [place] [address], [place] [id number] January, [facility] [address] [id number] [address] [place] [address], [place] [address] January, [facility] [address] [id number] [address] [place] [address], [place] [id number] January, [facility] [address] [id number] [address] [place] [address], [place] [address] January, [facility] [address] [id number] [address] [place] [address], [place] [id number] January, [facility] [address] [id number] [address] [place] [address], [place] [address] January, [facility] [address] [id number] [address] [place] [address], [place] [id number] January, [facility] [address] [id number] [address] [place] [address], [place] [id number] January, [facility] [address] [id number] [address] [place] [address], [place] [address] January, [facility] [address] [id number] [address] [place] [address], [place] [address] January, [facility] [address] [id number] [address] [place] [address], [place] [address] January, [facility] [address] [id number] [address] [place] [address], [place] [address] January, [facility] [address] [id number] [address] [place] [address], [place] [address] January, [facility] [address] [id number] [address] [place] [address], [place] [address] Dec, [facility] [address] [id number] [address] [place] [address], [place] [address] Dec, [facility] [address] [id number] [address] [place] [address], [place] [address] Dec, [facility] [address] [id number] [address] [place] [address], [place] [address] Dec, [facility] [address] [id number] [address] [place] [address], [place] [address] Dec, [facility] [address] [id number] [address] [place] [address], [place] [address] Dec, [facility] [address] [id number] [facility] [place] [address] Dec, [facility] [address] [id number] [address] [place] [address], [place] [id number] Dec, [facility] [address] [id number] [address] [place] [address], [place] [address] Dec, [facility] [address] [id number] [address] [place] [address], [place] [address] Dec, [facility] [address] [id number] [address] [place] [address], [place] [address] Dec, [facility] [address] [id number] [address] [place] [address], [place] [address] Dec, [facility] [address] [id number] [address] [place] [address], [place] [id number] Dec, [facility] [address] [id number] [address] [place] [address], [place] [address] Dec, [facility] [address] [id number] [address] [place] [address], [place] [address] Dec, [facility] [address] [id number] [address] [place] [address], [place] [address] Dec, [facility] [address] [id number] [address] [place] [address], [place] [address] Dec, [facility] [address] [id number] [address] [place] [address], [place] [address] Dec, [facility] [address] [id number] [address] [place] [address], [place] [address] Dec, [facility] [address] [id number] [address] [place] [address], [place] [address] Dec, [facility] [address] [id number] [address] [place] [address], [place] [address] Dec, [facility] [address] [id number] [address] [place] [address], [place] [address] 07 Dec, 2013 [facility] [address] [id number] [facility] [place] [address] 31 Nov, 2013 [facility] [address] [id number] [address] [place] [address], [place] [address] 31 Nov, 2013 [facility] [address] [id number] [facility] [place] [address] Nov, [facility] [address] [id number] [address] [place] [address], [place] [address] Nov, [facility] [address] [id number] [facility] [place] [address] 24 Nov, 2013 [facility] [address] [id number] [address] [place] [address], [place] [address] 24 Nov, 2013 [facility] [address] [id number] [address] [place] [address], [place] [address] Nov, [facility] [address] [id number] [address] [place] [address], [place] [address] 22 Nov, 2013 [facility] [address] [id number] [address] [place] [address], [place] [address] 18 Nov, 2013 [facility] [address] [id number] [address] [place] [address], [place] [address] 18 Nov, 2013 [facility] [address] [id number] [address] [place] [address], [place] [address] 18 Nov, 2013 [facility] [address] [id number] [address] [place] [address], [place] [address] 18 Nov, 2013 [facility] [address] [id number] [address] [place] [address], [place] [address] 14 Nov, 2013 [facility] [address] [id number] [address] [place] [address], [place] [address] 14 Nov, 2013 [facility] [address] [id number] [address] [place] [address], [place] [address] 06 Nov, 2013 [facility] [address] [id number] [address] [place] [address], [place] [address] Nov, [facility] [address] [id number] [address] [place] [address], [place] [address] Oct, [facility] [address] [id number] [address] [place] [address], [place] [address] Oct, [facility] [address] [id number] [address] [place] [address], [place] [address] Oct, [facility] [address] [id number] [address] [place] [address], [place] [address] Oct, [facility] [address] [id number] [address] [place] [address], [place] [address] Oct, [facility] [address] [id number] [address] [place] [address], [place] [address] Oct, [facility] [address] [id number] [address] [place] [address], [place] [address] Oct, [facility] [address] [id number] [address] [place] [address], [place] [address] Oct, [facility] [address] [id number] [address] [place] [address], [place] [address] Oct, [facility] [address] [id number] [address] [place] [address], [place] [address] Oct, [facility] [address] [id number] [address] [place] [id number] Oct, [facility] [address] [id number] [address] [place] [address], [place] [address] Oct, [facility] [address] [id number] [address] [place] [address], [place] [address] Oct, [facility] [address] [id number] [address] [place] [address], [place] [address] Oct, [facility] [address] [id number] [address] [place] [id number] Oct, [facility] [address] [id number] [address] [place] [address], [place] [address] Sep, [facility] [address] [id number] [address] [place] [address], [place] [address] Sep, [facility] [address] [id number] [address] [place] [address], [place] [address] Sep, [facility] [address] [id number] [address] [place] [address], [place] [address] Sep, [facility] [address] [id number] [address] [place] [address], [place] [address] Sep, [facility] [address] [id number] [address] [place] [address], [place] [address] Sep, [facility] [address] [id number] [address] [place] [address], [place] [address] Sep, [facility] [address] [id number] [address] [place] [address], [place] [address] Sep, [facility] [address] [id number] [address] [place] [address], [place] [address] Sep, [facility] [address] [id number] [address] [place] [address], [place] [address] Sep, [facility] [address] [id number] [address] [place] [address], [place] [address] Sep, [facility] [address] [id number] [address] [place] [address], [place] [address] Sep, [facility] [address] [id number] [address] [place] [address], [place] [address] Sep, [facility] [address] [id number] [address] [place] [address], [place] [address] Aug, [facility] [address] [id number] [address] [place] [address], [place] [address] Aug, [facility] [address] [id number] [address] [place] [address], [place] [address] 24 Aug, 2013 [facility] [address] [id number] [address] [place] [address], [place] [address] 24 Aug, 2013 [facility] [address] [id number] [address] [place] [address], [place] [address] 17 Aug, 2013 [facility] [address] [id number] [address] [place] [address], [place] [address] 17 Aug, 2013 [facility] [address] [id number] [address] [place] [address], [place] [address] 16 Aug, 2013 [facility] [address] [id number] [address] [place] [address], [place] [address] 16 Aug, 2013 [facility] [address] [id number] [address] [place] [address], [place] [address] Aug, [facility] [address] [id number] [address] [place] [address], [place] [address] Aug, [facility] [address] [id number] [address] [place] [address], [place] [address] Aug, [facility] [address] [id number] [address] [place] [address], [place] [address] Aug, [facility] [address] [id number] [address] [place] [address], [place] [address] Aug, [facility] [address] [id number] [address] [place] [address], [place] [address] Aug, [facility] [address] [id number] [address] [place] [address], [place] [address] Jul, [facility] [address] [id number] [address] [place] [address], [place] [address] Jul, [facility] [address] [id number] [address] [place] [address], [place] [address] 18 Jul, 2013 [facility] [address] [id number] [address] [place] [address], [place] [address] 18 Jul, 2013 [facility] [address] [id number] [address] [place] [address], [place] [address] 14 Jul, 2013 [facility] [address] [id number] [address] [place] [address], [place] [address] 14 Jul, 2013 [facility] [address] [id number] [address] [place] [address], [place] [address] 14 Jul, 2013 [facility] [address] [id number] [address] [place] [id number] 14 Jul, 2013 [facility] [address] [id number] [address] [place] [address], [place] [address] 07 Jul, 2013 [facility] [address] [id number] [address] [place] [id number] 07 Jul, 2013 [facility] [address] [id number] [address] [place] [address], [place] [address] 06 Jul, 2013 [facility] [address] [id number] [address] [place] [id number] 06 Jul, 2013 [facility] [address] [id number] [address] [place] [id number] 05 Jul, 2013 [facility] [address] [id number] [address] [place] [id number] 05 Jul, 2013 [facility] [address] [id number] [address] [place] [id number] 23 Jun, 2013 [facility] [address] [id number] [address] [place] [id number] 23 Jun, 2013 [facility] [address] [id number] [address] [place] [id number] 15 Jun, 2013 [facility] [address] [id number] [address] [place] [id number] 15 Jun, 2013 [facility] [address] [id number] [address] [place] [id number] 14 Jun, 2013 [facility] [address] [id number] [facility] [place] [address] 24 Sep, 2012 [facility] [address] [id number] [address] [place] [address], [place] [address] 20 Sep, 2012 [facility] [address] [id number] [address] [place] [address], [place] [address] 20 Sep, 2012 [facility] [address] [id number] [address] [place] [address], [place] [address] 20 Sep, 2012 [facility] [address] [id number] [address] [place] [address], [place] [address] 19 Sep, 2012 [facility] [address] [id number] [address] [place] [address], [place] [id number] 13 May, 2012 [facility] [address] [id number] [address] [place] [address], [place] [id number] 12 May, 2012 [facility] [address] [id number] [address] [place] [address], [place] [address] 12 May, 2012 [facility] [address] [id number] [address] [place] [address], [place] [address] 11 Sep, 2012 [facility] [address] [id number] [address] [place] [address], [place] [address] 11 May, 2012 [facility] [address] [id number] [address] [place] [address], [place] [id number] 11 Sep, 2012 [facility] [address] [id number] [address] [place] [address], [place] [address] 09 Sep, 2012 [facility] [address] [id number] [address] [place] [address], [place] [address] 05 Sep, 2012 [facility] [address] [id number] [address] [place] [address], [place] [address] 04 Sep, 2012 [facility] [address] [id number] [address] [place] [address], [place] [id number] 03 Sep, 2012 [facility] [address] [id number] [address] [place] [address], [place] [address] Apr, [facility] [address] [id number] [address] [place] [address], [place] [address] Apr, [facility] [address] [id number] [address] [place] [address], [place] [address] Apr, [facility] [address] [id number] [address] [place] [address], [place] [id number] Apr, [facility] [address] [id number] [address] [place] [address], [place] [address] Apr, [facility] [address] [id number] [address] [place] [address], [place] [address] Apr, [facility] [address] [id number] [address] [place] [address], [place] [address] Apr, [facility] [address] [id number] [address] [place] [address], [place] [address] Apr, [facility] [address] [id number] [address] [place] [address], [place] [address] Apr, [facility] [address] [id number] [address] [place] [address], [place] [address] Mar, [facility] [address] [id number] [address] [place] [address], [place] [address] Mar, [facility] [address] [id number] [address] [place] [address], [place] [address] Mar, [facility] [address] [id number] [address] [place] [address], [place] [id number] Mar, [facility] [address] [id number] [address] [place] [address], [place] [address] Mar, [facility] [address] [id number] [address] [place] [address], [place] [address] Mar, [facility] [address] [id number] [address] [place] [address], [place] [id number] Mar, [facility] [address] [id number] [address] [place] [address], [place] [id number] Mar, [facility] [address] [id number] [address] [place] [address], [place] [address] Mar, [facility] [address] [id number] [address] [place] [address], [place] [address] Mar, [facility] [address] [id number] [address] [place] [address], [place] [address] Mar, [facility] [address] [id number] [address] [place] [address], [place] [id number] Feb, [facility] [address] [id number] [address] [place] [address], [place] [id number] Feb, [facility] [address] [id number] [address] [place] [address], [place] [id number] Feb, [facility] [address] [id number] [address] [place] [address], [place] [id number] Feb, [facility] [address] [id number] [address] [place] [address], [place] [id number] Feb, [facility] [address] [id number] [address] [place] [address], [place] [id number] Feb, [facility] [address] [id number] [address] [place] [address], [place] [id number] Feb, [facility] [address] [id number] [address] [place] [address], [place] [id number] Feb, [facility] [address] [id number] [address] [place] [address], [place] [id number] Feb, [facility] [address] [id number] [address] [place] [address], [place] [id number] January, [facility] [address] [id number] [address] [place] [address], [place] [id number] January, [facility] [address] [id number] [address] [place] [address], [place] [id number] January, [facility] [address] [id number] [address] [place] [address], [place] [id number] January, [facility] [address] [id number] [address] [place] [address], [place] [id number] January, [facility] [address] [id number] [address] [place] [address], [place] [id number] January, [facility] [address] [id number] [address] [place] [address], [place] [id number] January, [facility] [address] [id number] [address] [place] [address], [place] [id number] January, [facility] [address] [id number] [address] [place] [address], [place] [id number] January, [facility] [address] [id number] [address] [place] [address], [place] [id number] January, [facility] [address] [id number] [address] [place] [address], [place] [id number] January, [facility] [address] [id number] [address] [place] [address], [place] [id number] January, [facility] [address] [id number] [address] [place] [address], [place] [id number] January, [facility] [address] [id number] [address] [place] [address], [place] [id number] January, [facility] [address] [id number] [address] [place] [address], [place] [id number] January, [facility] [address] [id number] [address] [place] [address], [place] [id number] January, [facility] [address] [id number] [address] [place] [address], [place] [id number] January, [facility] [address] [id number] [address] [place] [address], [place] [id number] January, [facility] [address] [id number] [address] [place] [address], [place] [id number] January, [facility] [address] [id number] [address] [place] [address], [place] [id number] January, [facility] [address] [id number] [address] [place] [address], [place] [id number] January, [facility] [address] [id number] [address] [place] [address], [place] [id number] January, [facility] [address] [id number] [address] [place] [address], [place] [id number] January, [facility] [address] [id number] [address] [place] [address], [place] [id number] Dec, [facility] [address] [id number] [address] [place] [address], [place] [id number] Dec, [facility] [address] [id number] [address] [place] [address], [place] [id number] Dec, [facility] [address] [id number] [address] [place] [address], [place] [id number] Dec, [facility] [place] [address] [id number] [address] [place] [address], [place] [id number] Dec, [facility] [address] [id number] [address] [place] [address], [place] [id number] Nov, [facility] [place] [address] [id number] [address] [place] [address], [place] [id number] Oct, [facility] [address] [id number] [address] [place] [address], [place] [id number] Oct, [facility] [address] [id number] [address] [place] [address], [place] [id number] Oct, [facility] [address] [id number] [address] [place] [address], [place] [id number] Oct, [facility] [address] [id number] [address] [place] [address], [place] [id number] Oct, [facility] [facility] [address] [id number] [address] [place] [address], [place] [id number] Sep, [facility] [place] [address] [id number] [address] [place] [address], [place] [id number] Sep, [facility] [address] [id number] [address] [place] [address], [place] [id number] Sep, [facility] [address] [id number] [address] [place] [address], [place] [id number] Aug, [facility] [address] [id number] [address] [place] [address], [place] [id number] Aug, [facility] [address] [id number] [address] [place] [address], [place] [id number] Aug, [facility] [address] [id number] [address] [place] [address], [place] [id number] Aug, [facility] [place] [address] [id number] [address] [place] [address], [place] [id number] Jul, [facility] [place] [address] [id number] [address] [place] [address], [place] [address] Jul, [facility] [place] [address] [id number] [address] [place] [address], [place] [address] Jul, [facility] [address] [id number] [address] [place] [address], [place] [address] Jul, [facility] [place] [address] [id number] [address] [place] [address], [place] [address] Jul, [facility] [address] [id number] [address] [place] [address], [place] [id number] Jul, [facility] [address] [id number] [address] [place] [address], [place] [address] Jun, [facility] [address] [id number] [address] [place] [address], [place] [id number] Jun, [facility] [address] [id number] [address] [place] [address], [place] [id number] Jun, [facility] [address] [id number] [address] [place] [address], [place] [address] Jun, [facility] [address] [id number] [address] [place] [address], [place] [address] Jun, [facility] [address] [id number] [address] [place] [address], [place] [address] Jun, [facility] [address] [id number] [address] [place] [address], [place] [address] Jun, [facility] [address] [id number] [address] [place] [address], [place] [id number] Jun, [facility] [address] [id number] [address] [place] [address], [place] [address] Jun, [facility] [address] [id number] [address] [place] [address], [place] [address] Jun, [facility] [address] [id number] [address] [place] [address], [place] [address] 17 May, 2012 [facility] [address] [id number] [address] [place] [address], [place] [address] 08 May, 2012 [facility] [address] [id number] [address] [place] [address], [place] [id number] 06 May, 2012 [facility] [address] [id number] [address] [place] [address], [place] [address] 30 Apr, 2012 [facility] [address] [id number] [address] [place] [address], [place] [id number] 29 Apr, 2012 [facility] [address] [id number] [address] [place] [address], [place] [address] 14 Apr, 2012 [facility] [address] [id number] [address] [place] [address], [place] [address] Apr, [facility] [address] [id number] [address] [place] [address], [place] [address] Apr, [facility] [address] [id number] [address] [place] [id number] Apr, [facility] [address] [id number] [address] [place] [address], [place] [address] Apr, [facility] [address] [id number] [address] [place] [address], [place] [address] Apr, [facility] [address] [id number] [address] [place] [address], [place] [address] Apr, [facility] [address] [id number] [address] [place] [address], [place] [address] Mar, [facility] [address] [id number] [address] [place] [address], [place] [address] Mar, [facility] [address] [id number] [address] [place] [address], [place] [address] Mar, [facility] [address] [id number] [address] [place] [address], [place] [address] Mar, [facility] [address] [id number] [address] [place] [address], [place] [address] Feb, [facility] [address] [id number] [address] [place] [address], [place] [id number] Feb, [facility] [address] [id number] [address] [place] [address], [place] [id number] Feb, [facility] [address] [id number] [address] [place] [address], [place] [address] January, [facility] [address] [id number] [address] [place] [address], [place] [address] January, [facility] [address] [id number] [address] [place] [address], [place] [address] January, [facility] [address] [id number] [address] [place] [address], [place] [address] January, [facility] [address] [id number] [address] [place] [address], [place] [address] January, [facility] [address] [id number] [address] [place] [address], [place] [address] 30 Dec, 2011 [facility] [address] [id number] [address] [place] [address], [place] [address] Dec, [facility] [address] [id number] [address] [place] [address], [place] [address] 16 Dec, 2011 [facility] [address] [id number] [address] [place] [address], [place] [address] Oct, [facility] [address] [id number] [address] [place] [address], [place] [address] Oct, [facility] [address] [id number] [address] [place] [address], [place] [address] Oct, [facility] [address] [id number] [address] [place] [address], [place] [id number] Sep, [facility] [address] [id number] [address] [place] [address], [place] [address] Sep, [facility] [address] [id number] [address] [place] [address], [place] [address] Aug, [facility] [address] [id number] [address] [place] [address], [place] [address] Jul, [facility] [address] [id number] [address] [place] [address], [place] [address] Jul, [facility] [address] [id number] [address] [place] [address], [place] [address] Mar, [facility] [address] [id number] [address] [place] [address], [place] [address] 10 Aug, 2010 [facility] [address] [id number] [address] [place] [address], [place] [address] 10 Jul, 2010 [facility] [address] [id number] [address] [place] [address], [place] [address] 04 Jul, 2010 [facility] [address] [id number] [address] [place] [address], [place] [address] 04 Jul, 2010 [facility] [address] [id number] [address] [place] [address], [place] [address] 04 Jul, 2010 [facility] [address] [id number] [address] [place] [id number] 14 Jun, 2010 [facility] [address] [id number] [address] [place] [address], [place] [address] 12 Jun, 2010 [facility] [address] [id number] [address] [place] [id number] 17 Apr, 2010 [facility] [address] [id number] [address] [place] [address], [place] [address] Aug, [facility] [address] [id number] [address] [place] [id number] Jul, [facility] [address] [id number] [address] [place] [id number] Jul, [facility] [address] [id number] [address] [place] [id number] Jul, [facility] [address] [id number] [address] [place] [id number] 23 Jun, 2009 [facility] [address] [id number] [address] [place] [id number] 10 May, 2009 [facility] [address] [id number] [address] [place] [id number] 14 Dec, 2008 [facility] [address] [id number] [address] [place] [id number] Nov, [facility] [address] [id number] [address] [place] [id number] 10 Oct, 2008 [facility] [address] [id number] [address] [place] [id number] 05 Aug, 2008 [facility] [address] [id number] [address] [place] [id number] Aug, [facility] [address] [id number] [address] [place] [address] 28 Jun, 2008 IMMUNIZATIONS No Known Immunizations [...] x 3 day s 04/2012 Hospitalization History [facility] [place]- Right wrist injury 03/29/2018
--- OUTSIDE RECORDS SUMMARY | 2020-04-09 00:08 | XMS REPORT ---
Author Author Kateryna Turner Doctor Organization [facility] Address Unknown Phone Unavailable Care Team Providers Care Hospital Receptionist Name Role Phone Migration, Doctor Unavailable Unavailable PROBLEMS Type Condition ICD9-CM Code KLM42-FU Code Onset Dates Condition S tatus SNOMED Code Problem Irregular menses N92.6 Active 801 98127 Problem Migraine with aura and without status migrainosu s, not intractable G43.109 Active 3613684 Problem Uncontrolled type 2 diabetes mellitus with hyperglycemia E11.65 Active 650091482 Problem Morbid obesity due to excess calories E66.01 Active 763798643 Problem RLS (restless legs syndrome) G25.81 A ctive 38995710 Problem Morbid obesity E66.01 Active 39720 6002 ALLERGIES No Information ENCOUNTERS Encounter Location Date Diagnosis [facility], [place] [address] [facility] [id number] [address] [place] [address] January, [facility] [place] [address] [facility] [id number] [address] [place] [address] Dec, [facility], [place] [address] [facility] [id number] [address] [place] [address] Dec, [facility], [place] [address] [facility] [id number] [address] [place] [address] Dec, Uncontrolled type 2 diabetes mellitus with hyperglycemia E11.65 [facility], [place] [address] [id number] [address] [place] [address] 07 Dec, 2019 [facility], [place] [address] [id number] [address] [place] [address] Dec, [facility], [place] [address] [facility] [id number] [address] [place] [address] Dec, [facility], [place] [address] [facility] [id number] [address] [place] [address] Nov, [facility], [place] [address] [id number] [address] [place] [address] 28 Nov, 2019 [facility], [place] [address] [id number] [address] [place] [address] 03 Nov, 2019 [facility], [place] [address] [facility] [id number] [address] [place] [address] 02 Nov, 2019 RLS (restless legs syndrome) G25.81 [facility], [place] [address] [id number] [address] [place] [address] 15 Oct, 2019 [facility] [address] [facility] [id number] [address] [place] [address] 09 Oct, 2019 Influenza J11.1 [facility], [place] [address] [facility] [id number] [address] [place] [address] 16 Sep, 2019 [facility], [place] [address] [facility] [id number] [address] [place] [address] 14 Sep, 2019 [facility], [place] [address] [facility] [id number] [address] [place] [address] 14 Sep, 2019 [facility], [place] [address] [id number] [address] [place] [address] 13 Sep, 2019 [facility], [place] [address] [facility] [id number] [address] [place] [address] 10 Sep, 2019 Pneumonia of left lower lobe due to infectious organism J18.9 and Migraine with aura and without status migrainosus, not intractable G43.109 [facility], [place] [address] [facility] [id number] [address] [place] [address] 10 Sep, 2019 [facility], [place] [address] [facility] [id number] [address] [place] [address] 10 Sep, 2019 [facility], [place] [address] [facility] [id number] [address] [place] [address] 08 Sep, 2019 [facility], [place] [address] [facility] [id number] [address] [place] [address] 08 Sep, 2019 [facility], [place] [address] [id number] [address] [place] [address] 08 Sep, 2019 Pneumonia of left lower lobe due to infectious organism J18.9 and Migraine with aura and without status migrainosus, not intractable G43.109 [facility], [place] [address] [id number] [address] [place] [address] Aug, Irregular menses N92.6 ; Wel l woman exam Z01.419 ; Pelvic cramping R10.2 and Left breast lump N63.20 [facility], [place] [address] [id number] [address] [place] [address] Aug, [facility], [place] [address] [facility] [id number] [address] [place] [address] 17 Aug, 2019 Well woman exam Z01.419 ; Le ft breast lump N63.20 ; Irregular menses N92.6 ; Encounter for immunization Z23 ; Pelvic cramping R10.2 and Screening for cervical cancer Z12.4 [facility], [place] [address] [facility] [id number] [address] [place] [address] Aug, [facility], [place] [address] [id number] [address] [place] [address] Aug, [facility], [place] [address] [facility] [id number] [address] [place] [address] Aug, [facility], [place] [address] [id number] [address] [place] [address] Jul, [facility], [place] [address] [facility] [id number] [address] [place] [address] Jun, [facility], [place] [address] [id number] [address] [place] [address] Jun, [facility], [place] [address] [facility] [id number] [address] [place] [address] 14 Jun, 2019 [facility], [place] [address] [facility] [id number] [address] [place] [address] Jun, BMI 50.0-59.9, adult Z68.43 [facility], [place] [address] [place] [id number] [address] [place] [address] Jun, [facility] [address] [place] [id number] [place] [address] May, Acute non-recurrent sinusiti s, unspecified location J01.90 ; Diarrhea, unspecified R19.7 ; Vomiting, unspecified R11.10 and Morbid obesity E66.01 [place] [address] [address] Apr, [place] [address] [address] Apr, Anemia due to other cause, n ot classified D64.89 and D-dimer, elevated R79.89 [place] [address] [address] Apr, [place] [address] [address] Apr, [place] [address] [address] Mar, Anemia due to other cause, n ot classified D64.89 and D-dimer, elevated R79.89 [place] [address] [address] Mar, Leg edema, right R60.0 ; Hig h risk medication use Z79.899 and Morbid obesity E66.01 [facility], [place] [address] [place] [id number] [address] [place] [address] Mar, BMI 50.0-59.9, adult Z68.43 [place] [address] [address] Mar, [place] [address] [address] January, Uncontrolled type 2 diabetes mellitus with hyperglycemia E11.65 ; RLS (restless legs syndrome) G25.81 and Morbid obesity E66.01 [facility], [place] [address] [id number] [address] [place] [address] 15 Oct, 2018 Lipoma of right lower extrem ity D17.23 [facility], [place] [address] [id number] [address] [place] [address] 05 Oct, 2018 Lipoma of right lower extrem ity D17.23 [facility], [place] [address] [id number] [address] [place] [address] Sep, [facility], [place] [address] [id number] [address] [place] [address] Sep, [facility], [place] [address] [id number] [address] [place] [address] Sep, [facility], [place] [address] [facility] [id number] [address] [place] [address] Sep, [facility], [place] [address] [facility] [id number] [address] [place] [address] Sep, [facility], [place] [address] [facility] [id number] [address] [place] [address] Aug, Uncontrolled type 2 diabetes mellitus with hyperglycemia E11.65 ; Morbid obesity due to excess calories E66.01 ; Lipoma of torso D17.1 and BMI 50.0-59.9, adult Z68.43 [facility], [place] [address] [facility] [id number] [address] [place] [address] Jun, Encounter for immunization Z 23 [facility], [place] [address] [id number] [address] [place] [address] Jul, [facility], [place] [address] [facility] [id number] [address] [place] [address] Jun, Encounter for immunization Z 23 [facility], [place] [address] [id number] [address] [place] [address] May, [facility], [place] [address] [facility] [id number] [address] [place] [address] Jun, Encounter for immunization Z 23 [facility] [address] [id number] [address] [place] [address], [place] [address] 29 May, 2015 [facility] [address] [id number] [address] [place] [address], [place] [address] May, [facility] [address] [id number] [address] [place] [address], [place] [address] Apr, [facility] [address] [id number] [address] [place] [address], [place] [address] Feb, [facility] [address] [id number] [address] [place] [address], [place] [address] Feb, [facility] [address] [id number] [address] [place] [address], [place] [address] Feb, [facility] [address] [id number] [address] [place] [address], [place] [address] January, [facility] [address] [id number] [address] [place] [address], [place] [address] January, [facility] [address] [id number] [address] [place] [address], [place] [address] Dec, [facility] [address] [id number] [address] [place] [address], [place] [address] Dec, [facility] [address] [id number] [address] [place] [address] Nov, [facility] [address] [id number] [address] [place] [address] Nov, [facility] [address] [id number] [address] [place] [address] Nov, [facility] [address] [id number] [address] [place] [address] Nov, [facility] [address] [id number] [address] [place] [address], [place] [address] Nov, [facility] [address] [id number] [address] [place] [address], [place] [address] Nov, [facility] [address] [id number] [address] [place] [address], [place] [address] Nov, [facility] [address] [id number] [address] [place] [address], [place] [address] 18 Oct, 2014 [facility] [address] [id number] [address] [place] [address], [place] [address] Oct, [facility] [address] [id number] [address] [place] [address], [place] [address] Oct, [facility] [address] [id number] [address] [place] [address], [place] [address] Oct, [facility] [address] [id number] [address] [place] [address], [place] [address] Oct, [facility] [address] [id number] [address] [place] [address], [place] [address] Sep, [facility] [address] [id number] [address] [place] [address], [place] [address] Sep, [facility] [address] [id number] [address] [place] [address], [place] [address] Sep, [facility] [address] [id number] [address] [place] [address], [place] [address] Sep, [facility] [address] [id number] [address] [place] [address], [place] [address] Sep, [facility] [address] [id number] [address] [place] [address], [place] [address] Sep, [facility] [address] [id number] [address] [place] [address], [place] [address] Sep, [facility] [address] [id number] [address] [place] [address], [place] [address] Sep, [facility] [address] [id number] [address] [place] [address], [place] [address] Sep, [facility] [address] [id number] [address] [place] [address], [place] [address] Sep, [facility] [address] [id number] [address] [place] [address], [place] [address] Aug, [facility] [address] [id number] [address] [place] [address], [place] [address] Aug, [facility] [address] [id number] [address] [place] [address], [place] [address] Aug, [facility] [address] [id number] [address] [place] [address], [place] [address] Aug, [facility] [address] [id number] [address] [place] [address], [place] [address] Aug, [facility] [address] [id number] [address] [place] [address], [place] [address] Aug, [facility] [address] [id number] [address] [place] [address], [place] [address] Aug, [facility] [address] [id number] [address] [place] [address], [place] [address] Aug, [facility] [address] [id number] [address] [place] [address], [place] [address] Aug, [facility] [address] [id number] [address] [place] [address], [place] [address] Aug, [facility] [address] [id number] [address] [place] [address], [place] [address] Aug, [facility] [address] [id number] [address] [place] [address], [place] [address] Aug, [facility] [address] [id number] [address] [place] [address], [place] [address] Aug, [facility] [address] [id number] [address] [place] [address], [place] [address] Aug, [facility] [address] [id number] [address] [place] [address], [place] [address] 17 Aug, 2014 [facility] [address] [id number] [address] [place] [address], [place] [address] 17 Aug, 2014 [facility] [address] [id number] [address] [place] [address], [place] [address] 16 Aug, 2014 [facility] [address] [id number] [address] [place] [address], [place] [address] 16 Aug, 2014 [facility] [address] [id number] [address] [place] [address], [place] [address] Aug, [facility] [address] [id number] [address] [place] [address], [place] [address] Aug, [facility] [address] [id number] [address] [place] [address], [place] [address] Aug, [facility] [address] [id number] [address] [place] [address], [place] [address] Aug, [facility] [address] [id number] [address] [place] [address], [place] [address] 05 Aug, 2014 [facility] [address] [id number] [address] [place] [address], [place] [address] 05 Aug, 2014 [facility] [address] [id number] [address] [place] [address], [place] [address] Jul, [facility] [address] [id number] [address] [place] [address], [place] [address] Jul, [facility] [address] [id number] [address] [place] [address], [place] [address] Jun, [facility] [address] [id number] [address] [place] [address], [place] [address] Jun, [facility] [address] [id number] [address] [place] [address], [place] [address] Jun, [facility] [address] [id number] [address] [place] [address], [place] [address] Jun, [facility] [address] [id number] [address] [place] [address], [place] [address] 15 Jun, 2014 [facility] [address] [id number] [address] [place] [address], [place] [address] 15 Jun, 2014 [facility] [address] [id number] [address] [place] [address], [place] [address] 14 Jun, 2014 [facility] [address] [id number] [address] [place] [address], [place] [address] 14 Jun, 2014 [facility] [address] [id number] [address] [place] [address], [place] [address] 13 Jun, 2014 [facility] [address] [id number] [address] [place] [address], [place] [address] 13 Jun, 2014 [facility] [address] [id number] [address] [place] [address], [place] [address] 13 Jun, 2014 [facility] [address] [id number] [address] [place] [address], [place] [address] Jun, [facility] [address] [id number] [address] [place] [address], [place] [address] 06 Jun, 2014 [facility] [address] [id number] [address] [place] [address], [place] [address] 06 Jun, 2014 [facility] [address] [id number] [address] [place] [address] 26 May, 2013 [facility] [address] [id number] [address] [place] [address] 26 May, 2013 [facility] [address] [id number] [address] [place] [address], [place] [address] 22 May, 2013 [facility] [address] [id number] [address] [place] [address], [place] [address] 22 May, 2013 [facility] [address] [id number] [address] [place] [address], [place] [address] 04 May, 2013 [facility] [address] [id number] [address] [place] [address] May, [facility] [address] [id number] [address] [place] [address], [place] [address] May, [facility] [address] [id number] [address] [place] [address], [place] [address] May, [facility] [address] [id number] [address] [place] [address], [place] [address] Apr, [facility] [address] [id number] [address] [place] [address], [place] [address] Apr, [facility] [address] [id number] [address] [place] [address], [place] [address] Apr, [facility] [address] [id number] [address] [place] [address], [place] [address] Apr, [facility] [address] [id number] [address] [place] [address], [place] [address] Apr, [facility] [address] [id number] [address] [place] [address], [place] [address] Apr, [facility] [address] [id number] [address] [place] [address], [place] [address] Apr, [facility] [address] [id number] [address] [place] [address], [place] [address] Apr, [facility] [address] [id number] [address] [place] [address], [place] [address] Apr, [facility] [address] [id number] [address] [place] [address], [place] [address] Mar, [facility] [address] [id number] [address] [place] [address], [place] [address] Mar, [facility] [address] [id number] [address] [place] [address], [place] [address] Mar, [facility] [address] [id number] [address] [place] [address], [place] [address] Feb, [facility] [address] [id number] [facility] [place] [address] 30 Feb, 2014 [facility] [address] [id number] [facility] [place] [address] Feb, [facility] [address] [id number] [facility] [place] [address] Feb, [facility] [address] [id number] [facility] [place] [address] Feb, [facility] [address] [id number] [facility] [place] [address] 17 Feb, 2014 [facility] [address] [id number] [address] [place] [address], [place] [address] Feb, [facility] [address] [id number] [address] [place] [address], [place] [address] Feb, [facility] [address] [id number] [address] [place] [address], [place] [address] Feb, [facility] [address] [id number] [address] [place] [address], [place] [address] Feb, [facility] [address] [id number] [address] [place] [address], [place] [address] Feb, [facility] [address] [id number] [address] [place] [address], [place] [address] Feb, [facility] [address] [id number] [address] [place] [address], [place] [address] Feb, [facility] [address] [id number] [address] [place] [address], [place] [address] Feb, [facility] [address] [id number] [address] [place] [address], [place] [address] Feb, [facility] [address] [id number] [address] [place] [address], [place] [address] Feb, [facility] [address] [id number] [address] [place] [address], [place] [address] January, [facility] [address] [id number] [facility] [place] [address] January, [facility] [address] [id number] [address] [place] [address], [place] [address] January, [facility] [address] [id number] [address] [place] [address], [place] [address] January, [facility] [address] [id number] [address] [place] [address], [place] [address] January, [facility] [address] [id number] [address] [place] [address], [place] [address] January, [facility] [address] [id number] [address] [place] [address], [place] [address] January, [facility] [address] [id number] [address] [place] [address], [place] [address] January, [facility] [address] [id number] [address] [place] [address], [place] [address] January, [facility] [address] [id number] [address] [place] [address], [place] [address] January, [facility] [address] [id number] [address] [place] [address], [place] [address] January, [facility] [address] [id number] [address] [place] [address], [place] [address] January, [facility] [address] [id number] [address] [place] [address], [place] [address] January, [facility] [address] [id number] [address] [place] [address], [place] [address] January, [facility] [address] [id number] [address] [place] [address], [place] [address] January, [facility] [address] [id number] [address] [place] [address], [place] [address] January, [facility] [address] [id number] [address] [place] [address], [place] [address] January, [facility] [address] [id number] [address] [place] [address], [place] [address] January, [facility] [address] [id number] [address] [place] [address], [place] [address] January, [facility] [address] [id number] [address] [place] [address], [place] [address] January, [facility] [address] [id number] [address] [place] [address], [place] [address] January, [facility] [address] [id number] [address] [place] [address], [place] [address] January, [facility] [address] [id number] [address] [place] [address], [place] [address] January, [facility] [address] [id number] [address] [place] [address], [place] [address] January, [facility] [address] [id number] [address] [place] [address], [place] [address] January, [facility] [address] [id number] [address] [place] [address], [place] [address] January, [facility] [address] [id number] [address] [place] [address], [place] [address] Dec, [facility] [address] [id number] [address] [place] [address], [place] [address] Dec, [facility] [address] [id number] [address] [place] [address], [place] [address] Dec, [facility] [address] [id number] [address] [place] [address], [place] [address] Dec, [facility] [address] [id number] [address] [place] [address], [place] [address] Dec, [facility] [address] [id number] [address] [place] [address], [place] [address] Dec, [facility] [address] [id number] [facility] [place] [address] Dec, [facility] [address] [id number] [address] [place] [address], [place] [address] Dec, [facility] [address] [id number] [address] [place] [address], [place] [address] Dec, [facility] [address] [id number] [address] [place] [address], [place] [address] Dec, [facility] [address] [id number] [address] [place] [address], [place] [address] Dec, [facility] [address] [id number] [address] [place] [address], [place] [address] Dec, [facility] [address] [id number] [address] [place] [address], [place] [address] Dec, [facility] [address] [id number] [address] [place] [address], [place] [address] Dec, [facility] [address] [id number] [address] [place] [address], [place] [address] Dec, [facility] [address] [id number] [address] [place] [address], [place] [address] Dec, [facility] [address] [id number] [address] [place] [address], [place] [address] Dec, [facility] [address] [id number] [address] [place] [address], [place] [address] Dec, [facility] [address] [id number] [address] [place] [address], [place] [address] Dec, [facility] [address] [id number] [address] [place] [address], [place] [address] Dec, [facility] [address] [id number] [address] [place] [address], [place] [address] Dec, [facility] [address] [id number] [address] [place] [address], [place] [address] 07 Dec, 2013 [facility] [address] [id number] [facility] [place] [address] 31 Nov, 2013 [facility] [address] [id number] [address] [place] [address], [place] [address] 31 Nov, 2013 [facility] [address] [id number] [facility] [place] [address] Nov, [facility] [address] [id number] [address] [place] [address], [place] [address] Nov, [facility] [address] [id number] [facility] [place] [address] 24 Nov, 2013 [facility] [address] [id number] [address] [place] [address], [place] [address] 24 Nov, 2013 [facility] [address] [id number] [address] [place] [address], [place] [address] Nov, [facility] [address] [id number] [address] [place] [address], [place] [address] 22 Nov, 2013 [facility] [address] [id number] [address] [place] [address], [place] [address] 18 Nov, 2013 [facility] [address] [id number] [address] [place] [address], [place] [address] 18 Nov, 2013 [facility] [address] [id number] [address] [place] [address], [place] [address] 18 Nov, 2013 [facility] [address] [id number] [address] [place] [address], [place] [address] 18 Nov, 2013 [facility] [address] [id number] [address] [place] [address], [place] [address] 14 Nov, 2013 [facility] [address] [id number] [address] [place] [address], [place] [address] 14 Nov, 2013 [facility] [address] [id number] [address] [place] [address], [place] [address] 06 Nov, 2013 [facility] [address] [id number] [address] [place] [address], [place] [address] Nov, [facility] [address] [id number] [address] [place] [address], [place] [address] Oct, [facility] [address] [id number] [address] [place] [address], [place] [address] Oct, [facility] [address] [id number] [address] [place] [address], [place] [address] Oct, [facility] [address] [id number] [address] [place] [address], [place] [address] Oct, [facility] [address] [id number] [address] [place] [address], [place] [address] Oct, [facility] [address] [id number] [address] [place] [address], [place] [address] Oct, [facility] [address] [id number] [address] [place] [address], [place] [address] Oct, [facility] [address] [id number] [address] [place] [address], [place] [address] Oct, [facility] [address] [id number] [address] [place] [address], [place] [address] Oct, [facility] [address] [id number] [address] [place] [address], [place] [address] Oct, [facility] [address] [id number] [address] [place] [address] Oct, [facility] [address] [id number] [address] [place] [address], [place] [address] Oct, [facility] [address] [id number] [address] [place] [address], [place] [address] Oct, [facility] [address] [id number] [address] [place] [address], [place] [address] Oct, [facility] [address] [id number] [address] [place] [address] Oct, [facility] [address] [id number] [address] [place] [address], [place] [address] Sep, [facility] [address] [id number] [address] [place] [address], [place] [address] Sep, [facility] [address] [id number] [address] [place] [address], [place] [address] Sep, [facility] [address] [id number] [address] [place] [address], [place] [address] Sep, [facility] [address] [id number] [address] [place] [address], [place] [address] Sep, [facility] [address] [id number] [address] [place] [address], [place] [address] Sep, [facility] [address] [id number] [address] [place] [address], [place] [address] Sep, [facility] [address] [id number] [address] [place] [address], [place] [address] Sep, [facility] [address] [id number] [address] [place] [address], [place] [address] Sep, [facility] [address] [id number] [address] [place] [address], [place] [address] Sep, [facility] [address] [id number] [address] [place] [address], [place] [address] Sep, [facility] [address] [id number] [address] [place] [address], [place] [address] Sep, [facility] [address] [id number] [address] [place] [address], [place] [address] Sep, [facility] [address] [id number] [address] [place] [address], [place] [address] Aug, [facility] [address] [id number] [address] [place] [address], [place] [address] Aug, [facility] [address] [id number] [address] [place] [address], [place] [address] 24 Aug, 2013 [facility] [address] [id number] [address] [place] [address], [place] [address] 24 Aug, 2013 [facility] [address] [id number] [address] [place] [address], [place] [address] 17 Aug, 2013 [facility] [address] [id number] [address] [place] [address], [place] [address] 17 Aug, 2013 [facility] [address] [id number] [address] [place] [address], [place] [address] 16 Aug, 2013 [facility] [address] [id number] [address] [place] [address], [place] [address] 16 Aug, 2013 [facility] [address] [id number] [address] [place] [address], [place] [address] Aug, [facility] [address] [id number] [address] [place] [address], [place] [address] Aug, [facility] [address] [id number] [address] [place] [address], [place] [address] Aug, [facility] [address] [id number] [address] [place] [address], [place] [address] Aug, [facility] [address] [id number] [address] [place] [address], [place] [address] Aug, [facility] [address] [id number] [address] [place] [address], [place] [address] Aug, [facility] [address] [id number] [address] [place] [address], [place] [address] Jul, [facility] [address] [id number] [address] [place] [address], [place] [address] Jul, [facility] [address] [id number] [address] [place] [address], [place] [address] 18 Jul, 2013 [facility] [address] [id number] [address] [place] [address], [place] [address] 18 Jul, 2013 [facility] [address] [id number] [address] [place] [address], [place] [address] 14 Jul, 2013 [facility] [address] [id number] [address] [place] [address], [place] [address] 14 Jul, 2013 [facility] [address] [id number] [address] [place] [address], [place] [address] 14 Jul, 2013 [facility] [address] [id number] [address] [place] [address] 14 Jul, 2013 [facility] [address] [id number] [address] [place] [address], [place] [address] 07 Jul, 2013 [facility] [address] [id number] [address] [place] [address] 07 Jul, 2013 [facility] [address] [id number] [address] [place] [address], [place] [address] 06 Jul, 2013 [facility] [address] [id number] [address] [place] [address] 06 Jul, 2013 [facility] [address] [id number] [address] [place] [address] 05 Jul, 2013 [facility] [address] [id number] [address] [place] [address] 05 Jul, 2013 [facility] [address] [id number] [address] [place] [address] 23 Jun, 2013 [facility] [address] [id number] [address] [place] [address] 23 Jun, 2013 [facility] [address] [id number] [address] [place] [address] 15 Jun, 2013 [facility] [address] [id number] [address] [place] [address] 15 Jun, 2013 [facility] [address] [id number] [address] [place] [address] 14 Jun, 2013 [facility] [address] [id number] [facility] [place] [address] 24 Sep, 2012 [facility] [address] [id number] [address] [place] [address], [place] [address] 20 Sep, 2012 [facility] [address] [id number] [address] [place] [address], [place] [address] 20 Sep, 2012 [facility] [address] [id number] [address] [place] [address], [place] [address] 20 Sep, 2012 [facility] [address] [id number] [address] [place] [address], [place] [address] 19 Sep, 2012 [facility] [address] [id number] [address] [place] [address], [place] [address] 13 May, 2012 [facility] [address] [id number] [address] [place] [address], [place] [address] 12 May, 2012 [facility] [address] [id number] [address] [place] [address], [place] [address] 12 May, 2012 [facility] [address] [id number] [address] [place] [address], [place] [address] 11 Sep, 2012 [facility] [address] [id number] [address] [place] [address], [place] [address] 11 May, 2012 [facility] [address] [id number] [address] [place] [address], [place] [address] 11 Sep, 2012 [facility] [address] [id number] [address] [place] [address], [place] [address] 09 Sep, 2012 [facility] [address] [id number] [address] [place] [address], [place] [address] 05 Sep, 2012 [facility] [address] [id number] [address] [place] [address], [place] [address] 04 Sep, 2012 [facility] [address] [id number] [address] [place] [address], [place] [address] 03 Sep, 2012 [facility] [address] [id number] [address] [place] [address], [place] [address] Apr, [facility] [address] [id number] [address] [place] [address], [place] [address] Apr, [facility] [address] [id number] [address] [place] [address], [place] [address] Apr, [facility] [address] [id number] [address] [place] [address], [place] [address] Apr, [facility] [address] [id number] [address] [place] [address], [place] [address] Apr, [facility] [address] [id number] [address] [place] [address], [place] [address] Apr, [facility] [address] [id number] [address] [place] [address], [place] [address] Apr, [facility] [address] [id number] [address] [place] [address], [place] [address] Apr, [facility] [address] [id number] [address] [place] [address], [place] [address] Apr, [facility] [address] [id number] [address] [place] [address], [place] [address] Mar, [facility] [address] [id number] [address] [place] [address], [place] [address] Mar, [facility] [address] [id number] [address] [place] [address], [place] [address] Mar, [facility] [address] [id number] [address] [place] [address], [place] [address] Mar, [facility] [address] [id number] [address] [place] [address], [place] [address] Mar, [facility] [address] [id number] [address] [place] [address], [place] [address] Mar, [facility] [address] [id number] [address] [place] [address], [place] [address] Mar, [facility] [address] [id number] [address] [place] [address], [place] [address] Mar, [facility] [address] [id number] [address] [place] [address], [place] [address] Mar, [facility] [address] [id number] [address] [place] [address], [place] [address] Mar, [facility] [address] [id number] [address] [place] [address], [place] [address] Mar, [facility] [address] [id number] [address] [place] [address], [place] [address] Feb, [facility] [address] [id number] [address] [place] [address], [place] [address] Feb, [facility] [address] [id number] [address] [place] [address], [place] [address] Feb, [facility] [address] [id number] [address] [place] [address], [place] [address] Feb, [facility] [address] [id number] [address] [place] [address], [place] [address] Feb, [facility] [address] [id number] [address] [place] [address], [place] [address] Feb, [facility] [address] [id number] [address] [place] [address], [place] [address] Feb, [facility] [address] [id number] [address] [place] [address], [place] [address] Feb, [facility] [address] [id number] [address] [place] [address], [place] [address] Feb, [facility] [address] [id number] [address] [place] [address], [place] [address] January, [facility] [address] [id number] [address] [place] [address], [place] [address] January, [facility] [address] [id number] [address] [place] [address], [place] [address] January, [facility] [address] [id number] [address] [place] [address], [place] [address] January, [facility] [address] [id number] [address] [place] [address], [place] [address] January, [facility] [address] [id number] [address] [place] [address], [place] [address] January, [facility] [address] [id number] [address] [place] [address], [place] [address] January, [facility] [address] [id number] [address] [place] [address], [place] [address] January, [facility] [address] [id number] [address] [place] [address], [place] [address] January, [facility] [address] [id number] [address] [place] [address], [place] [address] January, [facility] [address] [id number] [address] [place] [address], [place] [address] January, [facility] [address] [id number] [address] [place] [address], [place] [address] January, [facility] [address] [id number] [address] [place] [address], [place] [address] January, [facility] [address] [id number] [address] [place] [address], [place] [address] January, [facility] [address] [id number] [address] [place] [address], [place] [address] January, [facility] [address] [id number] [address] [place] [address], [place] [address] January, [facility] [address] [id number] [address] [place] [address], [place] [address] January, [facility] [address] [id number] [address] [place] [address], [place] [address] January, [facility] [address] [id number] [address] [place] [address], [place] [address] January, [facility] [address] [id number] [address] [place] [address], [place] [address] January, [facility] [address] [id number] [address] [place] [address], [place] [address] January, [facility] [address] [id number] [address] [place] [address], [place] [address] January, [facility] [address] [id number] [address] [place] [address], [place] [address] January, [facility] [address] [id number] [address] [place] [address], [place] [address] Dec, [facility] [address] [id number] [address] [place] [address], [place] [address] Dec, [facility] [address] [id number] [address] [place] [address], [place] [address] Dec, [facility] [address] [id number] [address] [place] [address], [place] [address] Dec, [facility] [address] [id number] [address] [place] [address], [place] [address] Dec, [facility] [address] [id number] [address] [place] [address], [place] [address] Nov, [facility] [address] [id number] [address] [place] [address], [place] [address] Oct, [facility] [address] [id number] [address] [place] [address], [place] [address] Oct, [facility] [address] [id number] [address] [place] [address], [place] [address] Oct, [facility] [address] [id number] [address] [place] [address], [place] [address] Oct, [facility] [address] [id number] [address] [place] [address], [place] [address] Oct, [facility] [address] [id number] [address] [place] [address], [place] [address] Sep, [facility] [address] [id number] [address] [place] [address], [place] [address] Sep, [facility] [address] [id number] [address] [place] [address], [place] [address] Sep, [facility] [address] [id number] [address] [place] [address], [place] [address] Aug, [facility] [address] [id number] [address] [place] [address], [place] [address] Aug, [facility] [address] [id number] [address] [place] [address], [place] [address] Aug, [facility] [address] [id number] [address] [place] [address], [place] [address] Aug, [facility] [address] [id number] [address] [place] [address], [place] [address] Jul, [facility] [address] [id number] [address] [place] [address], [place] [address] Jul, [facility] [address] [id number] [address] [place] [address], [place] [address] Jul, [facility] [address] [id number] [address] [place] [address], [place] [address] Jul, [facility] [address] [id number] [address] [place] [address], [place] [address] Jul, [facility] [address] [id number] [address] [place] [address], [place] [address] Jul, [facility] [address] [id number] [address] [place] [address], [place] [address] Jun, [facility] [address] [id number] [address] [place] [address], [place] [address] Jun, [facility] [address] [id number] [address] [place] [address], [place] [address] Jun, [facility] [address] [id number] [address] [place] [address], [place] [address] Jun, [facility] [address] [id number] [address] [place] [address], [place] [address] Jun, [facility] [address] [id number] [address] [place] [address], [place] [address] Jun, [facility] [address] [id number] [address] [place] [address], [place] [address] Jun, [facility] [address] [id number] [address] [place] [address], [place] [address] Jun, [facility] [address] [id number] [address] [place] [address], [place] [address] Jun, [facility] [address] [id number] [address] [place] [address], [place] [address] Jun, [facility] [address] [id number] [address] [place] [address], [place] [address] 17 May, 2012 [facility] [address] [id number] [address] [place] [address], [place] [address] 08 May, 2012 [facility] [address] [id number] [address] [place] [address], [place] [address] 06 May, 2012 [facility] [address] [id number] [address] [place] [address], [place] [address] 30 Apr, 2012 [facility] [address] [id number] [address] [place] [address], [place] [address] 29 Apr, 2012 [facility] [address] [id number] [address] [place] [address], [place] [address] 14 Apr, 2012 [facility] [address] [id number] [address] [place] [address], [place] [address] Apr, [facility] [address] [id number] [address] [place] [address], [place] [address] Apr, [facility] [address] [id number] [address] [place] [phone] Apr, [facility] [address] [id number] [address] [place] [address], [place] [address] Apr, [facility] [address] [id number] [address] [place] [address], [place] [address] Apr, [facility] [address] [id number] [address] [place] [address], [place] [address] Apr, [facility] [address] [id number] [address] [place] [address], [place] [address] Mar, [facility] [address] [id number] [address] [place] [address], [place] [address] Mar, [facility] [address] [id number] [address] [place] [address], [place] [address] Mar, [facility] [address] [id number] [address] [place] [address], [place] [address] Mar, [facility] [address] [id number] [address] [place] [address], [place] [address] Feb, [facility] [address] [id number] [address] [place] [address], [place] [address] Feb, [facility] [address] [id number] [address] [place] [address], [place] [address] Feb, [facility] [address] [id number] [address] [place] [address], [place] [address] January, [facility] [address] [id number] [address] [place] [address], [place] [address] January, [facility] [address] [id number] [address] [place] [address], [place] [address] January, [facility] [address] [id number] [address] [place] [address], [place] [address] January, [facility] [address] [id number] [address] [place] [address], [place] [address] January, [facility] [address] [id number] [address] [place] [address], [place] [address] 30 Dec, 2011 [facility] [address] [id number] [address] [place] [address], [place] [address] Dec, [facility] [address] [id number] [address] [place] [address], [place] [address] 16 Dec, 2011 [facility] [address] [id number] [address] [place] [address], [place] [address] Oct, [facility] [address] [id number] [address] [place] [address], [place] [address] Oct, [facility] [address] [id number] [address] [place] [address], [place] [address] Oct, [facility] [address] [id number] [address] [place] [address], [place] [address] Sep, [facility] [address] [id number] [address] [place] [address], [place] [address] Sep, [facility] [address] [id number] [address] [place] [address], [place] [address] Aug, [facility] [address] [id number] [address] [place] [address], [place] [address] Jul, [facility] [address] [id number] [address] [place] [address], [place] [address] Jul, [facility] [address] [id number] [address] [place] [address], [place] [address] Mar, [facility] [address] [id number] [address] [place] [address], [place] [address] 10 Aug, 2010 [facility] [address] [id number] [address] [place] [address], [place] [address] 10 Jul, 2010 [facility] [address] [id number] [address] [place] [address], [place] [address] 04 Jul, 2010 [facility] [address] [id number] [address] [place] [address], [place] [address] 04 Jul, 2010 [facility] [address] [id number] [address] [place] [address], [place] [address] 04 Jul, 2010 [facility] [address] [id number] [address] [place] [address] 14 Jun, 2010 [facility] [address] [id number] [address] [place] [address], [place] [address] 12 Jun, 2010 [facility] [address] [id number] [address] [place] [address] 17 Apr, 2010 [facility] [address] [id number] [address] [place] [address], [place] [address] Aug, [facility] [address] [id number] [address] [place] [address] Jul, [facility] [address] [id number] [address] [place] [address] Jul, [facility] [address] [id number] [address] [place] [address] Jul, [facility] [address] [id number] [address] [place] [address] 23 Jun, 2009 [facility] [address] [id number] [address] [place] [address] 10 May, 2009 [facility] [address] [id number] [address] [place] [address] 14 Dec, 2008 [facility] [address] [id number] [address] [place] [address] Nov, [facility] [address] [id number] [address] [place] [phone] 10 Oct, 2008 [facility] [address] [id number] [address] [place] [phone] 05 Aug, 2008 [facility] [address] [id number] [address] [place] [address] Aug, [facility] [address] [id number] [address] [place] [address] 28 Jun, 2008 IMMUNIZATIONS No Known Immunizations [...] x 3 day s 04/2012 Hospitalization History [facility] [place]- Right wrist injury 03/29/2018
--- OUTSIDE RECORDS SUMMARY | 2020-04-09 00:09 | XMS REPORT ---
Author Author Kateryna Turner Doctor Organization [facility] Address Unknown Phone Unavailable Care Team Providers Care Flight Teacher Name Role Phone Migration, Doctor Unavailable Unavailable PROBLEMS Type Condition ICD9-CM Code ZGH68-SB Code Onset Dates Condition S tatus SNOMED Code Problem Irregular menses N92.6 Active 801 47777 Problem Migraine with aura and without status migrainosu s, not intractable G43.109 Active 9294776 Problem Uncontrolled type 2 diabetes mellitus with hyperglycemia E11.65 Active 690384758 Problem Morbid obesity due to excess calories E66.01 Active 489331361 Problem RLS (restless legs syndrome) G25.81 A ctive 03126510 Problem Morbid obesity E66.01 Active 24012 6002 ALLERGIES No Information ENCOUNTERS Encounter Location Date Diagnosis [facility] [address] [facility] [id number] [address] [place] [phone] January, [facility] [address] [facility] [id number] [address] [place] [phone] Dec, [facility] [address] [facility] [id number] [address] [place] [phone] Dec, [facility] [address] [facility] [id number] [address] [place] [address] Dec, Uncontrolled type 2 diabetes mellitus with hyperglycemia E11.65 [facility] [address] [facility] [id number] [address] [place] [phone] 07 Dec, 2019 [facility] [address] [id number] [address] [place] [phone] Dec, [facility] [address] [facility] [id number] [address] [place] [phone] Dec, [facility] [address] [facility] [id number] [address] [place] [phone] Nov, [facility] [address] [id number] [address] [place] [phone] 28 Nov, 2019 [facility] [address] [id number] [address] [place] [phone] 03 Nov, 2019 [facility] [address] [facility] [id number] [address] [place] [phone] 02 Nov, 2019 RLS (restless legs syndrome) G25.81 [facility] [address] [id number] [address] [place] [phone] 15 Oct, 2019 [facility] [address] [facility] [id number] [address] [place] [phone] 09 Oct, 2019 Influenza J11.1 [facility] [address] [facility] [id number] [address] [place] [phone] 16 Sep, 2019 [facility] [address] [facility] [id number] [address] [place] [phone] 14 Sep, 2019 [facility] [address] [facility] [id number] [address] [place] [phone] 14 Sep, 2019 [facility] [address] [id number] [address] [place] [phone] 13 Sep, 2019 [facility] [address] [facility] [id number] [address] [place] [phone] 10 Sep, 2019 Pneumonia of left lower lobe due to infectious organism J18.9 and Migraine with aura and without status migrainosus, not intractable G43.109 [facility] [address] [facility] [id number] [address] [place] [phone] 10 Sep, 2019 [facility] [address] [facility] [id number] [address] [place] [phone] 10 Sep, 2019 [facility] [address] [facility] [id number] [address] [place] [phone] 08 Sep, 2019 [facility] [address] [facility] [id number] [address] [place] [phone] 08 Sep, 2019 [facility] [address] [id number] [address] [place] [phone] 08 Sep, 2019 Pneumonia of left lower lobe due to infectious organism J18.9 and Migraine with aura and without status migrainosus, not intractable G43.109 [facility] [address] [id number] [address] [place] [phone] Aug, Irregular menses N92.6 ; Wel l woman exam Z01.419 ; Pelvic cramping R10.2 and Left breast lump N63.20 [facility] [address] [id number] [address] [place] [phone] Aug, [facility] [address] [facility] [id number] [address] [place] [address] 17 Aug, 2019 Well woman exam Z01.419 ; Le ft breast lump N63.20 ; Irregular menses N92.6 ; Encounter for immunization Z23 ; Pelvic cramping R10.2 and Screening for cervical cancer Z12.4 [facility] [address] [facility] [id number] [address] [place] [phone] Aug, [facility] [address] [id number] [address] [place] [phone] Aug, [facility] [address] [facility] [id number] [address] [place] [phone] Aug, [facility] [address] [id number] [address] [place] [phone] Jul, [facility] [address] [facility] [id number] [address] [place] [phone] Jun, [facility] [address] [id number] [address] [place] [phone] Jun, [facility] [address] [facility] [id number] [address] [place] [phone] 14 Jun, 2019 [facility] [address] [facility] [id number] [address] [place] [address] Jun, BMI 50.0-59.9, adult Z68.43 [facility] [address] [place] [id number] [address] [place] [phone] Jun, [facility] [address] [place] [id number] [place] [phone] May, Acute non-recurrent sinusiti s, unspecified location J01.90 ; Diarrhea, unspecified R19.7 ; Vomiting, unspecified R11.10 and Morbid obesity E66.01 [place] [address] [address] Apr, [place] [address] [address] Apr, Anemia due to other cause, n ot classified D64.89 and D-dimer, elevated R79.89 [place] [address] [address] Apr, [place] [address] [address] Apr, [place] [address] [address] Mar, Anemia due to other cause, n ot classified D64.89 and D-dimer, elevated R79.89 [place] [address] [address] Mar, Leg edema, right R60.0 ; Hig h risk medication use Z79.899 and Morbid obesity E66.01 [facility] [address] [place] [id number] [address] [place] [address] Mar, BMI 50.0-59.9, adult Z68.43 [place] [address] [address] Mar, [place] [address] [address] January, Uncontrolled type 2 diabetes mellitus with hyperglycemia E11.65 ; RLS (restless legs syndrome) G25.81 and Morbid obesity E66.01 [facility] [address] [id number] [address] [place] [phone] 15 Oct, 2018 Lipoma of right lower extrem ity D17.23 [facility] [address] [id number] [address] [place] [phone] 05 Oct, 2018 Lipoma of right lower extrem ity D17.23 [facility] [address] [id number] [address] [place] [phone] Sep, [facility] [address] [id number] [address] [place] [phone] Sep, [facility] [address] [id number] [address] [place] [phone] Sep, [facility] [address] [facility] [id number] [address] [place] [phone] Sep, [facility] [address] [facility] [id number] [address] [place] [phone] Sep, [facility] [address] [facility] [id number] [address] [place] [phone] Aug, Uncontrolled type 2 diabetes mellitus with hyperglycemia E11.65 ; Morbid obesity due to excess calories E66.01 ; Lipoma of torso D17.1 and BMI 50.0-59.9, adult Z68.43 [facility] [address] [facility] [id number] [address] [place] [address] Jun, Encounter for immunization Z 23 [facility] [address] [id number] [address] [place] [phone] Jul, [facility] [address] [facility] [id number] [address] [place] [phone] Jun, Encounter for immunization Z 23 [facility] [address] [id number] [address] [place] [phone] May, [facility] [address] [facility] [id number] [address] [place] [phone] Jun, Encounter for immunization Z 23 [facility] [address] [id number] [address] [place] [address], [place] [address] 29 May, 2015 [facility] [address] [id number] [address] [place] [address], [place] [address] May, [facility] [address] [id number] [address] [place] [address], [place] [address] Apr, [facility] [address] [id number] [address] [place] [address], [place] [address] Feb, [facility] [address] [id number] [address] [place] [address], [place] [address] Feb, [facility] [address] [id number] [address] [place] [address], [place] [address] Feb, [facility] [address] [id number] [address] [place] [address], [place] [address] January, [facility] [address] [id number] [address] [place] [address], [place] [address] January, [facility] [address] [id number] [address] [place] [address], [place] [address] Dec, [facility] [address] [id number] [address] [place] [address], [place] [address] Dec, [facility] [address] [id number] [address] [place] [phone] Nov, [facility] [address] [id number] [address] [place] [phone] Nov, [facility] [address] [id number] [address] [place] [phone] Nov, [facility] [address] [id number] [address] [place] [phone] Nov, [facility] [address] [id number] [address] [place] [address], [place] [address] Nov, [facility] [address] [id number] [address] [place] [address], [place] [address] Nov, [facility] [address] [id number] [address] [place] [address], [place] [address] Nov, [facility] [address] [id number] [address] [place] [address], [place] [address] 18 Oct, 2014 [facility] [address] [id number] [address] [place] [address], [place] [address] Oct, [facility] [address] [id number] [address] [place] [address], [place] [address] Oct, [facility] [address] [id number] [address] [place] [address], [place] [address] Oct, [facility] [address] [id number] [address] [place] [address], [place] [address] Oct, [facility] [address] [id number] [address] [place] [address], [place] [address] Sep, [facility] [address] [id number] [address] [place] [address], [place] [address] Sep, [facility] [address] [id number] [address] [place] [address], [place] [address] Sep, [facility] [address] [id number] [address] [place] [address], [place] [address] Sep, [facility] [address] [id number] [address] [place] [address], [place] [address] Sep, [facility] [address] [id number] [address] [place] [address], [place] [address] Sep, [facility] [address] [id number] [address] [place] [address], [place] [address] Sep, [facility] [address] [id number] [address] [place] [address], [place] [address] Sep, [facility] [address] [id number] [address] [place] [address], [place] [address] Sep, [facility] [address] [id number] [address] [place] [address], [place] [address] Sep, [facility] [address] [id number] [address] [place] [address], [place] [address] Aug, [facility] [address] [id number] [address] [place] [address], [place] [address] Aug, [facility] [address] [id number] [address] [place] [address], [place] [address] Aug, [facility] [address] [id number] [address] [place] [address], [place] [address] Aug, [facility] [address] [id number] [address] [place] [address], [place] [address] Aug, [facility] [address] [id number] [address] [place] [address], [place] [address] Aug, [facility] [address] [id number] [address] [place] [address], [place] [address] Aug, [facility] [address] [id number] [address] [place] [address], [place] [address] Aug, [facility] [address] [id number] [address] [place] [address], [place] [address] Aug, [facility] [address] [id number] [address] [place] [address], [place] [address] Aug, [facility] [address] [id number] [address] [place] [address], [place] [address] Aug, [facility] [address] [id number] [address] [place] [address], [place] [address] Aug, [facility] [address] [id number] [address] [place] [address], [place] [address] Aug, [facility] [address] [id number] [address] [place] [address], [place] [address] Aug, [facility] [address] [id number] [address] [place] [address], [place] [address] 17 Aug, 2014 [facility] [address] [id number] [address] [place] [address], [place] [address] 17 Aug, 2014 [facility] [address] [id number] [address] [place] [address], [place] [address] 16 Aug, 2014 [facility] [address] [id number] [address] [place] [address], [place] [address] 16 Aug, 2014 [facility] [address] [id number] [address] [place] [address], [place] [address] Aug, [facility] [address] [id number] [address] [place] [address], [place] [address] Aug, [facility] [address] [id number] [address] [place] [address], [place] [address] Aug, [facility] [address] [id number] [address] [place] [address], [place] [address] Aug, [facility] [address] [id number] [address] [place] [address], [place] [address] 05 Aug, 2014 [facility] [address] [id number] [address] [place] [address], [place] [address] 05 Aug, 2014 [facility] [address] [id number] [address] [place] [address], [place] [address] Jul, [facility] [address] [id number] [address] [place] [address], [place] [address] Jul, [facility] [address] [id number] [address] [place] [address], [place] [address] Jun, [facility] [address] [id number] [address] [place] [address], [place] [address] Jun, [facility] [address] [id number] [address] [place] [address], [place] [address] Jun, [facility] [address] [id number] [address] [place] [address], [place] [address] Jun, [facility] [address] [id number] [address] [place] [address], [place] [address] 15 Jun, 2014 [facility] [address] [id number] [address] [place] [address], [place] [address] 15 Jun, 2014 [facility] [address] [id number] [address] [place] [address], [place] [address] 14 Jun, 2014 [facility] [address] [id number] [address] [place] [address], [place] [address] 14 Jun, 2014 [facility] [address] [id number] [address] [place] [address], [place] [address] 13 Jun, 2014 [facility] [address] [id number] [address] [place] [address], [place] [address] 13 Jun, 2014 [facility] [address] [id number] [address] [place] [address], [place] [address] 13 Jun, 2014 [facility] [address] [id number] [address] [place] [address], [place] [address] Jun, [facility] [address] [id number] [address] [place] [address], [place] [address] 06 Jun, 2014 [facility] [address] [id number] [address] [place] [address], [place] [address] 06 Jun, 2014 [facility] [address] [id number] [address] [place] [id number] 26 May, 2013 [facility] [address] [id number] [address] [place] [address] 26 May, 2013 [facility] [address] [id number] [address] [place] [address], [place] [address] 22 May, 2013 [facility] [address] [id number] [address] [place] [address], [place] [address] 22 May, 2013 [facility] [address] [id number] [address] [place] [address], [place] [address] 04 May, 2013 [facility] [address] [id number] [address] [place] [phone] May, [facility] [address] [id number] [address] [place] [address], [place] [address] May, [facility] [address] [id number] [address] [place] [address], [place] [address] May, [facility] [address] [id number] [address] [place] [address], [place] [address] Apr, [facility] [address] [id number] [address] [place] [address], [place] [address] Apr, [facility] [address] [id number] [address] [place] [address], [place] [address] Apr, [facility] [address] [id number] [address] [place] [address], [place] [address] Apr, [facility] [address] [id number] [address] [place] [address], [place] [address] Apr, [facility] [address] [id number] [address] [place] [address], [place] [id number] Apr, [facility] [address] [id number] [address] [place] [address], [place] [address] Apr, [facility] [address] [id number] [address] [place] [address], [place] [address] Apr, [facility] [address] [id number] [address] [place] [address], [place] [address] Apr, [facility] [address] [id number] [address] [place] [address], [place] [address] Mar, [facility] [address] [id number] [address] [place] [address], [place] [address] Mar, [facility] [address] [id number] [address] [place] [address], [place] [address] Mar, [facility] [address] [id number] [address] [place] [address], [place] [address] Feb, [facility] [address] [id number] [facility] [place] [address] 30 Feb, 2014 [facility] [address] [id number] [facility] [place] [address] Feb, [facility] [address] [id number] [facility] [place] [address] Feb, [facility] [address] [id number] [facility] [place] [address] Feb, [facility] [address] [id number] [facility] [place] [id number] 17 Feb, 2014 [facility] [address] [id number] [address] [place] [address], [place] [address] Feb, [facility] [address] [id number] [address] [place] [address], [place] [address] Feb, [facility] [address] [id number] [address] [place] [address], [place] [address] Feb, [facility] [address] [id number] [address] [place] [address], [place] [address] Feb, [facility] [address] [id number] [address] [place] [address], [place] [address] Feb, [facility] [address] [id number] [address] [place] [address], [place] [address] Feb, [facility] [address] [id number] [address] [place] [address], [place] [address] Feb, [facility] [address] [id number] [address] [place] [address], [place] [address] Feb, [facility] [address] [id number] [address] [place] [address], [place] [address] Feb, [facility] [address] [id number] [address] [place] [address], [place] [address] Feb, [facility] [address] [id number] [address] [place] [address], [place] [address] January, [facility] [address] [id number] [facility] [place] [address] January, [facility] [address] [id number] [address] [place] [address], [place] [address] January, [facility] [address] [id number] [address] [place] [address], [place] [address] January, [facility] [address] [id number] [address] [place] [address], [place] [address] January, [facility] [address] [id number] [address] [place] [address], [place] [address] January, [facility] [address] [id number] [address] [place] [address], [place] [address] January, [facility] [address] [id number] [address] [place] [address], [place] [address] January, [facility] [address] [id number] [address] [place] [address], [place] [address] January, [facility] [address] [id number] [address] [place] [address], [place] [address] January, [facility] [address] [id number] [address] [place] [address], [place] [address] January, [facility] [address] [id number] [address] [place] [address], [place] [address] January, [facility] [address] [id number] [address] [place] [address], [place] [address] January, [facility] [address] [id number] [address] [place] [address], [place] [id number] January, [facility] [address] [id number] [address] [place] [address], [place] [address] January, [facility] [address] [id number] [address] [place] [address], [place] [address] January, [facility] [address] [id number] [address] [place] [address], [place] [address] January, [facility] [address] [id number] [address] [place] [address], [place] [address] January, [facility] [address] [id number] [address] [place] [address], [place] [address] January, [facility] [address] [id number] [address] [place] [address], [place] [address] January, [facility] [address] [id number] [address] [place] [address], [place] [address] January, [facility] [address] [id number] [address] [place] [address], [place] [address] January, [facility] [address] [id number] [address] [place] [address], [place] [address] January, [facility] [address] [id number] [address] [place] [address], [place] [address] January, [facility] [address] [id number] [address] [place] [address], [place] [address] January, [facility] [address] [id number] [address] [place] [address], [place] [address] January, [facility] [address] [id number] [address] [place] [address], [place] [address] Dec, [facility] [address] [id number] [address] [place] [address], [place] [address] Dec, [facility] [address] [id number] [address] [place] [address], [place] [address] Dec, [facility] [address] [id number] [address] [place] [address], [place] [address] Dec, [facility] [address] [id number] [address] [place] [address], [place] [address] Dec, [facility] [address] [id number] [address] [place] [address], [place] [address] Dec, [facility] [address] [id number] [facility] [place] [address] Dec, [facility] [address] [id number] [address] [place] [address], [place] [address] Dec, [facility] [address] [id number] [address] [place] [address], [place] [address] Dec, [facility] [address] [id number] [address] [place] [address], [place] [address] Dec, [facility] [address] [id number] [address] [place] [address], [place] [address] Dec, [facility] [address] [id number] [address] [place] [address], [place] [address] Dec, [facility] [address] [id number] [address] [place] [address], [place] [address] Dec, [facility] [address] [id number] [address] [place] [address], [place] [address] Dec, [facility] [address] [id number] [address] [place] [address], [place] [address] Dec, [facility] [address] [id number] [address] [place] [address], [place] [address] Dec, [facility] [address] [id number] [address] [place] [address], [place] [address] Dec, [facility] [address] [id number] [address] [place] [address], [place] [address] Dec, [facility] [address] [id number] [address] [place] [address], [place] [address] Dec, [facility] [address] [id number] [address] [place] [address], [place] [address] Dec, [facility] [address] [id number] [address] [place] [address], [place] [address] Dec, [facility] [address] [id number] [address] [place] [address], [place] [address] 07 Dec, 2013 [facility] [address] [id number] [facility] [place] [address] 31 Nov, 2013 [facility] [address] [id number] [address] [place] [address], [place] [address] 31 Nov, 2013 [facility] [address] [id number] [facility] [place] [address] Nov, [facility] [address] [id number] [address] [place] [address], [place] [address] Nov, [facility] [address] [id number] [facility] [place] [address] 24 Nov, 2013 [facility] [address] [id number] [address] [place] [address], [place] [address] 24 Nov, 2013 [facility] [address] [id number] [address] [place] [address], [place] [address] Nov, [facility] [address] [id number] [address] [place] [address], [place] [address] 22 Nov, 2013 [facility] [address] [id number] [address] [place] [address], [place] [address] 18 Nov, 2013 [facility] [address] [id number] [address] [place] [address], [place] [address] 18 Nov, 2013 [facility] [address] [id number] [address] [place] [address], [place] [address] 18 Nov, 2013 [facility] [address] [id number] [address] [place] [address], [place] [address] 18 Nov, 2013 [facility] [address] [id number] [address] [place] [address], [place] [address] 14 Nov, 2013 [facility] [address] [id number] [address] [place] [address], [place] [address] 14 Nov, 2013 [facility] [address] [id number] [address] [place] [address], [place] [address] 06 Nov, 2013 [facility] [address] [id number] [address] [place] [address], [place] [address] Nov, [facility] [address] [id number] [address] [place] [address], [place] [address] Oct, [facility] [address] [id number] [address] [place] [address], [place] [address] Oct, [facility] [address] [id number] [address] [place] [address], [place] [address] Oct, [facility] [address] [id number] [address] [place] [address], [place] [address] Oct, [facility] [address] [id number] [address] [place] [address], [place] [address] Oct, [facility] [address] [id number] [address] [place] [address], [place] [address] Oct, [facility] [address] [id number] [address] [place] [address], [place] [address] Oct, [facility] [address] [id number] [address] [place] [address], [place] [address] Oct, [facility] [address] [id number] [address] [place] [address], [place] [address] Oct, [facility] [address] [id number] [address] [place] [address], [place] [address] Oct, [facility] [address] [id number] [address] [place] [address] Oct, [facility] [address] [id number] [address] [place] [address], [place] [address] Oct, [facility] [address] [id number] [address] [place] [address], [place] [address] Oct, [facility] [address] [id number] [address] [place] [address], [place] [address] Oct, [facility] [address] [id number] [address] [place] [id number] Oct, [facility] [address] [id number] [address] [place] [address], [place] [address] Sep, [facility] [address] [id number] [address] [place] [address], [place] [address] Sep, [facility] [address] [id number] [address] [place] [address], [place] [address] Sep, [facility] [address] [id number] [address] [place] [address], [place] [address] Sep, [facility] [address] [id number] [address] [place] [address], [place] [address] Sep, [facility] [address] [id number] [address] [place] [address], [place] [address] Sep, [facility] [address] [id number] [address] [place] [address], [place] [address] Sep, [facility] [address] [id number] [address] [place] [address], [place] [address] Sep, [facility] [address] [id number] [address] [place] [address], [place] [address] Sep, [facility] [address] [id number] [address] [place] [address], [place] [address] Sep, [facility] [address] [id number] [address] [place] [address], [place] [address] Sep, [facility] [address] [id number] [address] [place] [address], [place] [address] Sep, [facility] [address] [id number] [address] [place] [address], [place] [address] Sep, [facility] [address] [id number] [address] [place] [address], [place] [address] Aug, [facility] [address] [id number] [address] [place] [address], [place] [address] Aug, [facility] [address] [id number] [address] [place] [address], [place] [address] 24 Aug, 2013 [facility] [address] [id number] [address] [place] [address], [place] [address] 24 Aug, 2013 [facility] [address] [id number] [address] [place] [address], [place] [address] 17 Aug, 2013 [facility] [address] [id number] [address] [place] [address], [place] [address] 17 Aug, 2013 [facility] [address] [id number] [address] [place] [address], [place] [address] 16 Aug, 2013 [facility] [address] [id number] [address] [place] [address], [place] [address] 16 Aug, 2013 [facility] [address] [id number] [address] [place] [address], [place] [address] Aug, [facility] [address] [id number] [address] [place] [address], [place] [address] Aug, [facility] [address] [id number] [address] [place] [address], [place] [address] Aug, [facility] [address] [id number] [address] [place] [address], [place] [address] Aug, [facility] [address] [id number] [address] [place] [address], [place] [address] Aug, [facility] [address] [id number] [address] [place] [address], [place] [address] Aug, [facility] [address] [id number] [address] [place] [address], [place] [address] Jul, [facility] [address] [id number] [address] [place] [address], [place] [address] Jul, [facility] [address] [id number] [address] [place] [address], [place] [address] 18 Jul, 2013 [facility] [address] [id number] [address] [place] [address], [place] [address] 18 Jul, 2013 [facility] [address] [id number] [address] [place] [address], [place] [address] 14 Jul, 2013 [facility] [address] [id number] [address] [place] [address], [place] [address] 14 Jul, 2013 [facility] [address] [id number] [address] [place] [address], [place] [address] 14 Jul, 2013 [facility] [address] [id number] [address] [place] [address] 14 Jul, 2013 [facility] [address] [id number] [address] [place] [address], [place] [address] 07 Jul, 2013 [facility] [address] [id number] [address] [place] [id number] 07 Jul, 2013 [facility] [address] [id number] [address] [place] [address], [place] [address] 06 Jul, 2013 [facility] [address] [id number] [address] [place] [id number] 06 Jul, 2013 [facility] [address] [id number] [address] [place] [id number] 05 Jul, 2013 [facility] [address] [id number] [address] [place] [id number] 05 Jul, 2013 [facility] [address] [id number] [address] [place] [id number] 23 Jun, 2013 [facility] [address] [id number] [address] [place] [id number] 23 Jun, 2013 [facility] [address] [id number] [address] [place] [id number] 15 Jun, 2013 [facility] [address] [id number] [address] [place] [id number] 15 Jun, 2013 [facility] [address] [id number] [address] [place] [id number] 14 Jun, 2013 [facility] [address] [id number] [facility] [address] 24 Sep, 2012 [facility] [address] [id number] [address] [place] [address], [place] [address] 20 Sep, 2012 [facility] [address] [id number] [address] [place] [address], [place] [address] 20 Sep, 2012 [facility] [address] [id number] [address] [place] [address], [place] [address] 20 Sep, 2012 [facility] [address] [id number] [address] [place] [address], [place] [address] 19 Sep, 2012 [facility] [address] [id number] [address] [place] [address], [place] [address] 13 May, 2012 [facility] [address] [id number] [address] [place] [address], [place] [address] 12 May, 2012 [facility] [address] [id number] [address] [place] [address], [place] [address] 12 May, 2012 [facility] [address] [id number] [address] [place] [address], [place] [address] 11 Sep, 2012 [facility] [address] [id number] [address] [place] [address], [place] [address] 11 May, 2012 [facility] [address] [id number] [address] [place] [address], [place] [address] 11 Sep, 2012 [facility] [address] [id number] [address] [place] [address], [place] [address] 09 Sep, 2012 [facility] [address] [id number] [address] [place] [address], [place] [address] 05 Sep, 2012 [facility] [address] [id number] [address] [place] [address], [place] [address] 04 Sep, 2012 [facility] [address] [id number] [address] [place] [address], [place] [address] 03 Sep, 2012 [facility] [address] [id number] [address] [place] [address], [place] [address] Apr, [facility] [address] [id number] [address] [place] [address], [place] [address] Apr, [facility] [address] [id number] [address] [place] [address], [place] [address] Apr, [facility] [address] [id number] [address] [place] [address], [place] [address] Apr, [facility] [address] [id number] [address] [place] [address], [place] [address] Apr, [facility] [address] [id number] [address] [place] [address], [place] [address] Apr, [facility] [address] [id number] [address] [place] [address], [place] [address] Apr, [facility] [address] [id number] [address] [place] [address], [place] [address] Apr, [facility] [address] [id number] [address] [place] [address], [place] [address] Apr, [facility] [address] [id number] [address] [place] [address], [place] [address] Mar, [facility] [address] [id number] [address] [place] [address], [place] [address] Mar, [facility] [address] [id number] [address] [place] [address], [place] [address] Mar, [facility] [address] [id number] [address] [place] [address], [place] [address] Mar, [facility] [address] [id number] [address] [place] [address], [place] [address] Mar, [facility] [address] [id number] [address] [place] [address], [place] [address] Mar, [facility] [address] [id number] [address] [place] [address], [place] [address] Mar, [facility] [address] [id number] [address] [place] [address], [place] [address] Mar, [facility] [address] [id number] [address] [place] [address], [place] [address] Mar, [facility] [address] [id number] [address] [place] [address], [place] [address] Mar, [facility] [address] [id number] [address] [place] [address], [place] [address] Mar, [facility] [address] [id number] [address] [place] [address], [place] [address] Feb, [facility] [address] [id number] [address] [place] [address], [place] [address] Feb, [facility] [address] [id number] [address] [place] [address], [place] [address] Feb, [facility] [address] [id number] [address] [place] [address], [place] [address] Feb, [facility] [address] [id number] [address] [place] [address], [place] [address] Feb, [facility] [address] [id number] [address] [place] [address], [place] [address] Feb, [facility] [address] [id number] [address] [place] [address], [place] [address] Feb, [facility] [address] [id number] [address] [place] [address], [place] [address] Feb, [facility] [address] [id number] [address] [place] [address], [place] [id number] Feb, [facility] [address] [id number] [address] [place] [address], [place] [id number] January, [facility] [address] [id number] [address] [place] [address], [place] [address] January, [facility] [address] [id number] [address] [place] [address], [place] [address] January, [facility] [address] [id number] [address] [place] [address], [place] [address] January, [facility] [address] [id number] [address] [place] [address], [place] [id number] January, [facility] [address] [id number] [address] [place] [address], [place] [address] January, [facility] [address] [id number] [address] [place] [address], [place] [address] January, [facility] [address] [id number] [address] [place] [address], [place] [address] January, [facility] [address] [id number] [address] [place] [address], [place] [id number] January, [facility] [address] [id number] [address] [place] [address], [place] [phone] January, [facility] [address] [id number] [address] [place] [address], [place] [address] January, [facility] [address] [id number] [address] [place] [address], [place] [address] January, [facility] [address] [id number] [address] [place] [address], [place] [id number] January, [facility] [address] [id number] [address] [place] [address], [place] [address] January, [facility] [address] [id number] [address] [place] [address], [place] [address] January, [facility] [address] [id number] [address] [place] [address], [place] [address] January, [facility] [address] [id number] [address] [place] [address], [place] [address] January, [facility] [address] [id number] [address] [place] [address], [place] [address] January, [facility] [address] [id number] [address] [place] [address], [place] [address] January, [facility] [address] [id number] [address] [place] [address], [place] [id number] January, [facility] [address] [id number] [address] [place] [address], [place] [id number] January, [facility] [address] [id number] [address] [place] [address], [place] [id number] January, [facility] [address] [id number] [address] [place] [address], [place] [address] January, [facility] [address] [id number] [address] [place] [address], [place] [id number] Dec, [facility] [address] [id number] [address] [place] [address], [place] [address] Dec, [facility] [address] [id number] [address] [place] [address], [place] [address] Dec, [facility] [address] [id number] [address] [place] [address], [place] [address] Dec, [facility] [address] [id number] [address] [place] [address], [place] [address] Dec, [facility] [address] [id number] [address] [place] [address], [place] [address] Nov, [facility] [address] [id number] [address] [place] [address], [place] [address] Oct, [facility] [address] [id number] [address] [place] [address], [place] [id number] Oct, [facility] [address] [id number] [address] [place] [address], [place] [address] Oct, [facility] [address] [id number] [address] [place] [address], [place] [address] Oct, [facility] [address] [id number] [address] [place] [address], [place] [address] Oct, [facility] [address] [id number] [address] [place] [address], [place] [address] Sep, [facility] [address] [id number] [address] [place] [address], [place] [address] Sep, [facility] [address] [id number] [address] [place] [address], [place] [address] Sep, [facility] [address] [id number] [address] [place] [address], [place] [id number] Aug, [facility] [address] [id number] [address] [place] [address], [place] [address] Aug, [facility] [address] [id number] [address] [place] [address], [place] [address] Aug, [facility] [address] [id number] [address] [place] [address], [place] [address] Aug, [facility] [address] [id number] [address] [place] [address], [place] [address] Jul, [facility] [address] [id number] [address] [place] [address], [place] [address] Jul, [facility] [place] [address] [id number] [address] [place] [address], [place] [address] Jul, [facility] [address] [id number] [address] [place] [address], [place] [address] Jul, [facility] [address] [id number] [address] [place] [address], [place] [address] Jul, [facility] [address] [id number] [address] [place] [address], [place] [address] Jul, [facility] [address] [id number] [address] [place] [address], [place] [address] Jun, [facility] [address] [id number] [address] [place] [address], [place] [address] Jun, [facility] [address] [id number] [address] [place] [address], [place] [address] Jun, [facility] [address] [id number] [address] [place] [address], [place] [address] Jun, [facility] [address] [id number] [address] [place] [address], [place] [address] Jun, [facility] [address] [id number] [address] [place] [address], [place] [address] Jun, [facility] [address] [id number] [address] [place] [address], [place] [address] Jun, [facility] [address] [id number] [address] [place] [address], [place] [address] Jun, [facility] [address] [id number] [address] [place] [address], [place] [address] Jun, [facility] [address] [id number] [address] [place] [address], [place] [address] Jun, [facility] [address] [id number] [address] [place] [address], [place] [address] 17 May, 2012 [facility] [address] [id number] [address] [place] [address], [place] [address] 08 May, 2012 [facility] [address] [id number] [address] [place] [address], [place] [address] 06 May, 2012 [facility] [address] [id number] [address] [place] [address], [place] [address] 30 Apr, 2012 [facility] [address] [id number] [address] [place] [address], [place] [address] 29 Apr, 2012 [facility] [address] [id number] [address] [place] [address], [place] [address] 14 Apr, 2012 [facility] [address] [id number] [address] [place] [address], [place] [address] Apr, [facility] [address] [id number] [address] [place] [address], [place] [address] Apr, [facility] [address] [id number] [address] [place] [phone] Apr, [facility] [address] [id number] [address] [place] [address], [place] [address] Apr, [facility] [address] [id number] [address] [place] [address], [place] [address] Apr, [facility] [address] [id number] [address] [place] [address], [place] [address] Apr, [facility] [address] [id number] [address] [place] [address], [place] [address] Mar, [facility] [address] [id number] [address] [place] [address], [place] [address] Mar, [facility] [address] [id number] [address] [place] [address], [place] [address] Mar, [facility] [address] [id number] [address] [place] [address], [place] [address] Mar, [facility] [address] [id number] [address] [place] [address], [place] [address] Feb, [facility] [address] [id number] [address] [place] [address], [place] [address] Feb, [facility] [address] [id number] [address] [place] [address], [place] [address] Feb, [facility] [address] [id number] [address] [place] [address], [place] [address] January, [facility] [address] [id number] [address] [place] [address], [place] [address] January, [facility] [address] [id number] [address] [place] [address], [place] [address] January, [facility] [address] [id number] [address] [place] [address], [place] [address] January, [facility] [address] [id number] [address] [place] [address], [place] [address] January, [facility] [address] [id number] [address] [place] [address], [place] [address] 30 Dec, 2011 [facility] [address] [id number] [address] [place] [address], [place] [address] Dec, [facility] [address] [id number] [address] [place] [address], [place] [address] 16 Dec, 2011 [facility] [address] [id number] [address] [place] [address], [place] [address] Oct, [facility] [address] [id number] [address] [place] [address], [place] [address] Oct, [facility] [address] [id number] [address] [place] [address], [place] [address] Oct, [facility] [address] [id number] [address] [place] [address], [place] [address] Sep, [facility] [address] [id number] [address] [place] [address], [place] [address] Sep, [facility] [address] [id number] [address] [place] [address], [place] [address] Aug, [facility] [address] [id number] [address] [place] [address], [place] [address] Jul, [facility] [address] [id number] [address] [place] [address], [place] [address] Jul, [facility] [address] [id number] [address] [place] [address], [place] [address] Mar, [facility] [address] [id number] [address] [place] [address], [place] [address] 10 Aug, 2010 [facility] [address] [id number] [address] [place] [address], [place] [address] 10 Jul, 2010 [facility] [address] [id number] [address] [place] [address], [place] [address] 04 Jul, 2010 [facility] [address] [id number] [address] [place] [address], [place] [address] 04 Jul, 2010 [facility] [address] [id number] [address] [place] [address], [place] [address] 04 Jul, 2010 [facility] [address] [id number] [address] [place] [id number] 14 Jun, 2010 [facility] [address] [id number] [address] [place] [address], [place] [address] 12 Jun, 2010 [facility] [address] [id number] [address] [place] [id number] 17 Apr, 2010 [facility] [address] [id number] [address] [place] [address], [place] [address] Aug, [facility] [address] [id number] [address] [place] [phone] Jul, [facility] [address] [id number] [address] [place] [phone] Jul, [facility] [address] [id number] [address] [place] [id number] Jul, [facility] [address] [id number] [address] [place] [id number] 23 Jun, 2009 [facility] [address] [id number] [address] [place] [id number] 10 May, 2009 [facility] [address] [id number] [address] [place] [id number] 14 Dec, 2008 [facility] [address] [id number] [address] [place] [id number] Nov, [facility] [address] [id number] [address] [place] [id number] 10 Oct, 2008 [facility] [address] [id number] [address] [place] [id number] 05 Aug, 2008 [facility] [address] [id number] [address] [place] [id number] Aug, [facility] [address] [id number] [address] [place] [address] 28 Jun, 2008 IMMUNIZATIONS No Known Immunizations [...] x 3 day s 04/2012 Hospitalization History [facility]- Right wrist injury 03/29/2018
--- OUTSIDE RECORDS SUMMARY | 2020-04-09 00:09 | XMS REPORT ---
Author Author Kateryna Turner Doctor Organization [facility] Address Unknown Phone Unavailable Care Team Providers Care Compliance Reviewer Name Role Phone Migration, Doctor Unavailable Unavailable PROBLEMS Type Condition ICD9-CM Code [id number] Code Onset Dates Condition S tatus SNOMED Code Problem Irregular menses N92.6 Active 801 92547 Problem Migraine with aura and without status migrainosu s, not intractable G43.109 Active 7324461 Problem Uncontrolled type 2 diabetes mellitus with hyperglycemia E11.65 Active 886093662 Problem Morbid obesity due to excess calories E66.01 Active 003513097 Problem RLS (restless legs syndrome) G25.81 A ctive 05083590 Problem Morbid obesity E66.01 Active 54433 6002 ALLERGIES No Information ENCOUNTERS Encounter Location Date Diagnosis [facility] [address] [facility] [id number] [address] [place] [address] January, [facility] [address] [facility] [id number] [address] [place] [address] Dec, [facility] [address] [facility] [id number] [address] [place] [address] Dec, [facility] [address] [facility] [id number] [address] [place] [address] Dec, Uncontrolled type 2 diabetes mellitus with hyperglycemia E11.65 [facility] [address] [facility] [id number] [address] [place] [address] 07 Dec, 2019 [facility] [address] [id number] [address] [place] [address] Dec, [facility] [address] [facility] [id number] [address] [place] [address] Dec, [facility] [address] [facility] [id number] [address] [place] [address] Nov, [facility] [address] [id number] [address] [place] [address] 28 Nov, 2019 [facility] [address] [id number] [address] [place] [address] 03 Nov, 2019 [facility] [address] [facility] [id number] [address] [place] [address] 02 Nov, 2019 RLS (restless legs syndrome) G25.81 [facility] [address] [id number] [address] [place] [address] 15 Oct, 2019 [facility] [address] [facility] [id number] [address] [place] [address] 09 Oct, 2019 Influenza J11.1 [facility] [address] [facility] [id number] [address] [place] [address] 16 Sep, 2019 [facility] [address] [facility] [id number] [address] [place] [address] 14 Sep, 2019 [facility] [address] [facility] [id number] [address] [place] [address] 14 Sep, 2019 [facility] [address] [id number] [address] [place] [address] 13 Sep, 2019 [facility] [address] [facility] [id number] [address] [place] [address] 10 Sep, 2019 Pneumonia of left lower lobe due to infectious organism J18.9 and Migraine with aura and without status migrainosus, not intractable G43.109 [facility] [address] [facility] [id number] [address] [place] [address] 10 Sep, 2019 [facility] [address] [facility] [id number] [address] [place] [address] 10 Sep, 2019 [facility] [address] [facility] [id number] [address] [place] [address] 08 Sep, 2019 [facility] [address] [facility] [id number] [address] [place] [address] 08 Sep, 2019 [facility] [address] [id number] [address] [place] [address] 08 Sep, 2019 Pneumonia of left lower lobe due to infectious organism J18.9 and Migraine with aura and without status migrainosus, not intractable G43.109 [facility] [address] [id number] [address] [place] [address] Aug, Irregular menses N92.6 ; Wel l woman exam Z01.419 ; Pelvic cramping R10.2 and Left breast lump N63.20 [facility] [address] [id number] [address] [place] [address] Aug, [facility] [address] [facility] [id number] [address] [place] [address] 17 Aug, 2019 Well woman exam Z01.419 ; Le ft breast lump N63.20 ; Irregular menses N92.6 ; Encounter for immunization Z23 ; Pelvic cramping R10.2 and Screening for cervical cancer Z12.4 [facility] [address] [facility] [id number] [address] [place] [address] Aug, [facility] [address] [id number] [address] [place] [address] Aug, [facility] [address] [facility] [id number] [address] [place] [address] Aug, [facility] [address] [id number] [address] [place] [address] Jul, [facility] [address] [facility] [id number] [address] [place] [address] Jun, [facility] [address] [id number] [address] [place] [address] Jun, [facility] [address] [facility] [id number] [address] [place] [address] 14 Jun, 2019 [facility] [address] [facility] [id number] [address] [place] [address] Jun, BMI 50.0-59.9, adult Z68.43 [facility] [address] [place] [id number] [address] [place] [address] Jun, [facility] [address] [place] [id number] [place] [address] May, Acute non-recurrent sinusiti s, unspecified location J01.90 ; Diarrhea, unspecified R19.7 ; Vomiting, unspecified R11.10 and Morbid obesity E66.01 [place] [address] [address] Apr, [place] [address] [address] Apr, Anemia due to other cause, n ot classified D64.89 and D-dimer, elevated R79.89 [place] [address] [address] Apr, [place] [address] [address] Apr, [place] [address] [address] Mar, Anemia due to other cause, n ot classified D64.89 and D-dimer, elevated R79.89 [place] [address] [address] Mar, Leg edema, right R60.0 ; Hig h risk medication use Z79.899 and Morbid obesity E66.01 [facility] [address] [place] [id number] [address] [place] [address] Mar, BMI 50.0-59.9, adult Z68.43 [place] [address] [address] Mar, [place] [address] [address] January, Uncontrolled type 2 diabetes mellitus with hyperglycemia E11.65 ; RLS (restless legs syndrome) G25.81 and Morbid obesity E66.01 [facility] [address] [id number] [address] [place] [address] 15 Oct, 2018 Lipoma of right lower extrem ity D17.23 [facility] [address] [id number] [address] [place] [address] 05 Oct, 2018 Lipoma of right lower extrem ity D17.23 [facility] [address] [id number] [address] [place] [address] Sep, [facility] [address] [id number] [address] [place] [address] Sep, [facility] [address] [id number] [address] [place] [address] Sep, [facility] [address] [facility] [id number] [address] [place] [address] Sep, [facility] [address] [facility] [id number] [address] [place] [address] Sep, [facility] [address] [facility] [id number] [address] [place] [address] Aug, Uncontrolled type 2 diabetes mellitus with hyperglycemia E11.65 ; Morbid obesity due to excess calories E66.01 ; Lipoma of torso D17.1 and BMI 50.0-59.9, adult Z68.43 [facility] [address] [facility] [id number] [address] [place] [address] Jun, Encounter for immunization Z 23 [facility] [address] [id number] [address] [place] [address] Jul, [facility] [address] [facility] [id number] [address] [place] [address] Jun, Encounter for immunization Z 23 [facility] [address] [id number] [address] [place] [address] May, [facility] [address] [facility] [id number] [address] [place] [address] Jun, Encounter for immunization Z 23 [facility] [address] [id number] [address] [place] [address], [place] [address] 29 May, 2015 [facility] [address] [id number] [address] [place] [address], [place] [address] May, [facility] [address] [id number] [address] [place] [address], [place] [address] Apr, [facility] [address] [id number] [address] [place] [address], [place] [address] Feb, [facility] [address] [id number] [address] [place] [address], [place] [address] Feb, [facility] [address] [id number] [address] [place] [address], [place] [address] Feb, [facility] [address] [id number] [address] [place] [address], [place] [address] January, [facility] [address] [id number] [address] [place] [address], [place] [address] January, [facility] [address] [id number] [address] [place] [address], [place] [address] Dec, [facility] [address] [id number] [address] [place] [address], [place] [address] Dec, [facility] [address] [id number] [address] [place] [address] Nov, [facility] [address] [id number] [address] [place] [address] Nov, [facility] [address] [id number] [address] [place] [address] Nov, [facility] [address] [id number] [address] [place] [address] Nov, [facility] [address] [id number] [address] [place] [address], [place] [address] Nov, [facility] [address] [id number] [address] [place] [address], [place] [address] Nov, [facility] [address] [id number] [address] [place] [address], [place] [address] Nov, [facility] [address] [id number] [address] [place] [address], [place] [address] 18 Oct, 2014 [facility] [address] [id number] [address] [place] [address], [place] [address] Oct, [facility] [address] [id number] [address] [place] [address], [place] [address] Oct, [facility] [address] [id number] [address] [place] [address], [place] [address] Oct, [facility] [address] [id number] [address] [place] [address], [place] [address] Oct, [facility] [address] [id number] [address] [place] [address], [place] [address] Sep, [facility] [address] [id number] [address] [place] [address], [place] [address] Sep, [facility] [address] [id number] [address] [place] [address], [place] [address] Sep, [facility] [address] [id number] [address] [place] [address], [place] [address] Sep, [facility] [address] [id number] [address] [place] [address], [place] [address] Sep, [facility] [address] [id number] [address] [place] [address], [place] [address] Sep, [facility] [address] [id number] [address] [place] [address], [place] [address] Sep, [facility] [address] [id number] [address] [place] [address], [place] [address] Sep, [facility] [address] [id number] [address] [place] [address], [place] [address] Sep, [facility] [address] [id number] [address] [place] [address], [place] [address] Sep, [facility] [address] [id number] [address] [place] [address], [place] [address] Aug, [facility] [address] [id number] [address] [place] [address], [place] [address] Aug, [facility] [address] [id number] [address] [place] [address], [place] [address] Aug, [facility] [address] [id number] [address] [place] [address], [place] [address] Aug, [facility] [address] [id number] [address] [place] [address], [place] [address] Aug, [facility] [address] [id number] [address] [place] [address], [place] [address] Aug, [facility] [address] [id number] [address] [place] [address], [place] [address] Aug, [facility] [address] [id number] [address] [place] [address], [place] [address] Aug, [facility] [address] [id number] [address] [place] [address], [place] [address] Aug, [facility] [address] [id number] [address] [place] [address], [place] [address] Aug, [facility] [address] [id number] [address] [place] [address], [place] [address] Aug, [facility] [address] [id number] [address] [place] [address], [place] [address] Aug, [facility] [address] [id number] [address] [place] [address], [place] [address] Aug, [facility] [address] [id number] [address] [place] [address], [place] [address] Aug, [facility] [address] [id number] [address] [place] [address], [place] [address] 17 Aug, 2014 [facility] [address] [id number] [address] [place] [address], [place] [address] 17 Aug, 2014 [facility] [address] [id number] [address] [place] [address], [place] [address] 16 Aug, 2014 [facility] [address] [id number] [address] [place] [address], [place] [address] 16 Aug, 2014 [facility] [address] [id number] [address] [place] [address], [place] [address] Aug, [facility] [address] [id number] [address] [place] [address], [place] [address] Aug, [facility] [address] [id number] [address] [place] [address], [place] [address] Aug, [facility] [address] [id number] [address] [place] [address], [place] [address] Aug, [facility] [address] [id number] [address] [place] [address], [place] [address] 05 Aug, 2014 [facility] [address] [id number] [address] [place] [address], [place] [address] 05 Aug, 2014 [facility] [address] [id number] [address] [place] [address], [place] [address] Jul, [facility] [address] [id number] [address] [place] [address], [place] [address] Jul, [facility] [address] [id number] [address] [place] [address], [place] [address] Jun, [facility] [address] [id number] [address] [place] [address], [place] [address] Jun, [facility] [address] [id number] [address] [place] [address], [place] [address] Jun, [facility] [address] [id number] [address] [place] [address], [place] [address] Jun, [facility] [address] [id number] [address] [place] [address], [place] [address] 15 Jun, 2014 [facility] [address] [id number] [address] [place] [address], [place] [address] 15 Jun, 2014 [facility] [address] [id number] [address] [place] [address], [place] [address] 14 Jun, 2014 [facility] [address] [id number] [address] [place] [address], [place] [address] 14 Jun, 2014 [facility] [address] [id number] [address] [place] [address], [place] [address] 13 Jun, 2014 [facility] [address] [id number] [address] [place] [address], [place] [address] 13 Jun, 2014 [facility] [address] [id number] [address] [place] [address], [place] [address] 13 Jun, 2014 [facility] [address] [id number] [address] [place] [address], [place] [address] Jun, [facility] [address] [id number] [address] [place] [address], [place] [address] 06 Jun, 2014 [facility] [address] [id number] [address] [place] [address], [place] [address] 06 Jun, 2014 [facility] [address] [id number] [address] [place] [address] 26 May, 2013 [facility] [address] [id number] [address] [place] [address] 26 May, 2013 [facility] [address] [id number] [address] [place] [address], [place] [address] 22 May, 2013 [facility] [address] [id number] [address] [place] [address], [place] [address] 22 May, 2013 [facility] [address] [id number] [address] [place] [address], [place] [address] 04 May, 2013 [facility] [address] [id number] [address] [place] [address] May, [facility] [address] [id number] [address] [place] [address], [place] [address] May, [facility] [address] [id number] [address] [place] [address], [place] [address] May, [facility] [address] [id number] [address] [place] [address], [place] [address] Apr, [facility] [address] [id number] [address] [place] [address], [place] [address] Apr, [facility] [address] [id number] [address] [place] [address], [place] [address] Apr, [facility] [address] [id number] [address] [place] [address], [place] [address] Apr, [facility] [address] [id number] [address] [place] [address], [place] [address] Apr, [facility] [address] [id number] [address] [place] [address], [place] [address] Apr, [facility] [address] [id number] [address] [place] [address], [place] [address] Apr, [facility] [address] [id number] [address] [place] [address], [place] [address] Apr, [facility] [address] [id number] [address] [place] [address], [place] [address] Apr, [facility] [address] [id number] [address] [place] [address], [place] [address] Mar, [facility] [address] [id number] [address] [place] [address], [place] [address] Mar, [facility] [address] [id number] [address] [place] [address], [place] [address] Mar, [facility] [address] [id number] [address] [place] [address], [place] [address] Feb, [facility] [address] [id number] [address] [address] 30 Feb, 2014 [facility] [address] [id number] [address] [address] Feb, [facility] [address] [id number] [address] [address] Feb, [facility] [address] [id number] [address] [address] Feb, [facility] [address] [id number] [address] [address] 17 Feb, 2014 [facility] [address] [id number] [address] [place] [address], [place] [address] Feb, [facility] [address] [id number] [address] [place] [address], [place] [address] Feb, [facility] [address] [id number] [address] [place] [address], [place] [address] Feb, [facility] [address] [id number] [address] [place] [address], [place] [address] Feb, [facility] [address] [id number] [address] [place] [address], [place] [address] Feb, [facility] [address] [id number] [address] [place] [address], [place] [address] Feb, [facility] [address] [id number] [address] [place] [address], [place] [address] Feb, [facility] [address] [id number] [address] [place] [address], [place] [address] Feb, [facility] [address] [id number] [address] [place] [address], [place] [address] Feb, [facility] [address] [id number] [address] [place] [address], [place] [address] Feb, [facility] [address] [id number] [address] [place] [address], [place] [address] January, [facility] [address] [id number] [address] [address] January, [facility] [address] [id number] [address] [place] [address], [place] [address] January, [facility] [address] [id number] [address] [place] [address], [place] [address] January, [facility] [address] [id number] [address] [place] [address], [place] [address] January, [facility] [address] [id number] [address] [place] [address], [place] [address] January, [facility] [address] [id number] [address] [place] [address], [place] [address] January, [facility] [address] [id number] [address] [place] [address], [place] [address] January, [facility] [address] [id number] [address] [place] [address], [place] [address] January, [facility] [address] [id number] [address] [place] [address], [place] [address] January, [facility] [address] [id number] [address] [place] [address], [place] [address] January, [facility] [address] [id number] [address] [place] [address], [place] [address] January, [facility] [address] [id number] [address] [place] [address], [place] [address] January, [facility] [address] [id number] [address] [place] [address], [place] [address] January, [facility] [address] [id number] [address] [place] [address], [place] [address] January, [facility] [address] [id number] [address] [place] [address], [place] [address] January, [facility] [address] [id number] [address] [place] [address], [place] [address] January, [facility] [address] [id number] [address] [place] [address], [place] [address] January, [facility] [address] [id number] [address] [place] [address], [place] [address] January, [facility] [address] [id number] [address] [place] [address], [place] [address] January, [facility] [address] [id number] [address] [place] [address], [place] [address] January, [facility] [address] [id number] [address] [place] [address], [place] [address] January, [facility] [address] [id number] [address] [place] [address], [place] [address] January, [facility] [address] [id number] [address] [place] [address], [place] [address] January, [facility] [address] [id number] [address] [place] [address], [place] [address] January[facility] [facility] [address] [id number] [address] [place] [address], [place] [address] January, [facility] [address] [id number] [address] [place] [address], [place] [address] Dec, [facility] [address] [id number] [address] [place] [address], [place] [address] Dec, [facility] [address] [id number] [address] [place] [address], [place] [address] Dec, [facility] [address] [id number] [address] [place] [address], [place] [address] Dec, [facility] [address] [id number] [address] [place] [address], [place] [address] Dec, [facility] [address] [id number] [address] [place] [address], [place] [address] Dec, [facility] [address] [id number] [address] [address] Dec, [facility] [address] [id number] [address] [place] [address], [place] [address] Dec, [facility] [address] [id number] [address] [place] [address], [place] [address] Dec, [facility] [address] [id number] [address] [place] [address], [place] [address] Dec, [facility] [address] [id number] [address] [place] [address], [place] [address] Dec, [facility] [address] [id number] [address] [place] [address], [place] [address] Dec, [facility] [address] [id number] [address] [place] [address], [place] [address] Dec, [facility] [address] [id number] [address] [place] [address], [place] [address] Dec, [facility] [address] [id number] [address] [place] [address], [place] [address] Dec, [facility] [address] [id number] [address] [place] [address], [place] [address] Dec, [facility] [address] [id number] [address] [place] [address], [place] [address] Dec, [facility] [address] [id number] [address] [place] [address], [place] [address] Dec, [facility] [address] [id number] [address] [place] [address], [place] [address] Dec, [facility] [address] [id number] [address] [place] [address], [place] [address] Dec, [facility] [address] [id number] [address] [place] [address], [place] [address] Dec, [facility] [address] [id number] [address] [place] [address], [place] [address] 07 Dec, 2013 [facility] [address] [id number] [address] [address] 31 Nov, 2013 [facility] [address] [id number] [address] [place] [address], [place] [address] 31 Nov, 2013 [facility] [address] [id number] [address] [address] Nov, [facility] [address] [id number] [address] [place] [address], [place] [address] Nov, [facility] [address] [id number] [address] [address] 24 Nov, 2013 [facility] [address] [id number] [address] [place] [address], [place] [address] 24 Nov, 2013 [facility] [address] [id number] [address] [place] [address], [place] [address] Nov, [facility] [address] [id number] [address] [place] [address], [place] [address] 22 Nov, 2013 [facility] [address] [id number] [address] [place] [address], [place] [address] 18 Nov, 2013 [facility] [address] [id number] [address] [place] [address], [place] [address] 18 Nov, 2013 [facility] [address] [id number] [address] [place] [address], [place] [address] 18 Nov, 2013 [facility] [address] [id number] [address] [place] [address], [place] [address] 18 Nov, 2013 [facility] [address] [id number] [address] [place] [address], [place] [address] 14 Nov, 2013 [facility] [address] [id number] [address] [place] [address], [place] [address] 14 Nov, 2013 [facility] [address] [id number] [address] [place] [address], [place] [address] 06 Nov, 2013 [facility] [address] [id number] [address] [place] [address], [place] [address] Nov, [facility] [address] [id number] [address] [place] [address], [place] [address] Oct, [facility] [address] [id number] [address] [place] [address], [place] [address] Oct, [facility] [address] [id number] [address] [place] [address], [place] [address] Oct, [facility] [address] [id number] [address] [place] [address], [place] [address] Oct, [facility] [address] [id number] [address] [place] [address], [place] [address] Oct, [facility] [address] [id number] [address] [place] [address], [place] [address] Oct, [facility] [address] [id number] [address] [place] [address], [place] [address] Oct, [facility] [address] [id number] [address] [place] [address], [place] [address] Oct, [facility] [address] [id number] [address] [place] [address], [place] [address] Oct, [facility] [address] [id number] [address] [place] [address], [place] [address] Oct, [facility] [address] [id number] [address] [place] [address] Oct, [facility] [address] [id number] [address] [place] [address], [place] [address] Oct, [facility] [address] [id number] [address] [place] [address], [place] [address] Oct, [facility] [address] [id number] [address] [place] [address], [place] [address] Oct, [facility] [address] [id number] [address] [place] [address] Oct, [facility] [address] [id number] [address] [place] [address], [place] [address] Sep, [facility] [address] [id number] [address] [place] [address], [place] [address] Sep, [facility] [address] [id number] [address] [place] [address], [place] [address] Sep, [facility] [address] [id number] [address] [place] [address], [place] [address] Sep, [facility] [address] [id number] [address] [place] [address], [place] [address] Sep, [facility] [address] [id number] [address] [place] [address], [place] [address] Sep, [facility] [address] [id number] [address] [place] [address], [place] [address] Sep, [facility] [address] [id number] [address] [place] [address], [place] [address] Sep, [facility] [address] [id number] [address] [place] [address], [place] [address] Sep, [facility] [address] [id number] [address] [place] [address], [place] [address] Sep, [facility] [address] [id number] [address] [place] [address], [place] [address] Sep, [facility] [address] [id number] [address] [place] [address], [place] [address] Sep, [facility] [address] [id number] [address] [place] [address], [place] [address] Sep, [facility] [address] [id number] [address] [place] [address], [place] [address] Aug, [facility] [address] [id number] [address] [place] [address], [place] [address] Aug, [facility] [address] [id number] [address] [place] [address], [place] [address] 24 Aug, 2013 [facility] [address] [id number] [address] [place] [address], [place] [address] 24 Aug, 2013 [facility] [address] [id number] [address] [place] [address], [place] [address] 17 Aug, 2013 [facility] [address] [id number] [address] [place] [address], [place] [address] 17 Aug, 2013 [facility] [address] [id number] [address] [place] [address], [place] [address] 16 Aug, 2013 [facility] [address] [id number] [address] [place] [address], [place] [address] 16 Aug, 2013 [facility] [address] [id number] [address] [place] [address], [place] [address] Aug, [facility] [address] [id number] [address] [place] [address], [place] [address] Aug, [facility] [address] [id number] [address] [place] [address], [place] [address] Aug, [facility] [address] [id number] [address] [place] [address], [place] [address] Aug, [facility] [address] [id number] [address] [place] [address], [place] [address] Aug, [facility] [address] [id number] [address] [place] [address], [place] [address] Aug, [facility] [address] [id number] [address] [place] [address], [place] [address] Jul, [facility] [address] [id number] [address] [place] [address], [place] [address] Jul, [facility] [address] [id number] [address] [place] [address], [place] [address] 18 Jul, 2013 [facility] [address] [id number] [address] [place] [address], [place] [address] 18 Jul, 2013 [facility] [address] [id number] [address] [place] [address], [place] [address] 14 Jul, 2013 [facility] [address] [id number] [address] [place] [address], [place] [address] 14 Jul, 2013 [facility] [address] [id number] [address] [place] [address], [place] [address] 14 Jul, 2013 [facility] [address] [id number] [address] [place] [address] 14 Jul, 2013 [facility] [address] [id number] [address] [place] [address], [place] [address] 07 Jul, 2013 [facility] [address] [id number] [address] [place] [address] 07 Jul, 2013 [facility] [address] [id number] [address] [place] [address], [place] [address] 06 Jul, 2013 [facility] [address] [id number] [address] [place] [address] 06 Jul, 2013 [facility] [address] [id number] [address] [place] [address] 05 Jul, 2013 [facility] [address] [id number] [address] [place] [address] 05 Jul, 2013 [facility] [address] [id number] [address] [place] [address] 23 Jun, 2013 [facility] [address] [id number] [address] [place] [address] 23 Jun, 2013 [facility] [address] [id number] [address] [place] [address] 15 Jun, 2013 [facility] [address] [id number] [address] [place] [address] 15 Jun, 2013 [facility] [address] [id number] [address] [place] [address] 14 Jun, 2013 [facility] [address] [id number] [facility] [place] [address] 24 Sep, 2012 [facility] [address] [id number] [address] [place] [address], [place] [address] 20 Sep, 2012 [facility] [address] [id number] [address] [place] [address], [place] [address] 20 Sep, 2012 [facility] [address] [id number] [address] [place] [address], [place] [address] 20 Sep, 2012 [facility] [address] [id number] [address] [place] [address], [place] [address] 19 Sep, 2012 [facility] [address] [id number] [address] [place] [address], [place] [address] 13 May, 2012 [facility] [address] [id number] [address] [place] [address], [place] [address] 12 May, 2012 [facility] [address] [id number] [address] [place] [address], [place] [address] 12 May, 2012 [facility] [address] [id number] [address] [place] [address], [place] [address] 11 Sep, 2012 [facility] [address] [id number] [address] [place] [address], [place] [address] 11 May, 2012 [facility] [address] [id number] [address] [place] [address], [place] [address] 11 Sep, 2012 [facility] [address] [id number] [address] [place] [address], [place] [address] 09 Sep, 2012 [facility] [address] [id number] [address] [place] [address], [place] [address] 05 Sep, 2012 [facility] [address] [id number] [address] [place] [address], [place] [address] 04 Sep, 2012 [facility] [address] [id number] [address] [place] [address], [place] [address] 03 Sep, 2012 [facility] [address] [id number] [address] [place] [address], [place] [address] Apr, [facility] [address] [id number] [address] [place] [address], [place] [address] Apr, [facility] [address] [id number] [address] [place] [address], [place] [address] Apr, [facility] [address] [id number] [address] [place] [address], [place] [address] Apr, [facility] [address] [id number] [address] [place] [address], [place] [address] Apr, [facility] [address] [id number] [address] [place] [address], [place] [address] Apr, [facility] [address] [id number] [address] [place] [address], [place] [address] Apr, [facility] [address] [id number] [address] [place] [address], [place] [address] Apr, [facility] [address] [id number] [address] [place] [address], [place] [address] Apr, [facility] [address] [id number] [address] [place] [address], [place] [address] Mar, [facility] [address] [id number] [address] [place] [address], [place] [address] Mar, [facility] [address] [id number] [address] [place] [address], [place] [address] Mar, [facility] [address] [id number] [address] [place] [address], [place] [address] Mar, [facility] [address] [id number] [address] [place] [address], [place] [address] Mar, [facility] [address] [id number] [address] [place] [address], [place] [address] Mar, [facility] [address] [id number] [address] [place] [address], [place] [address] Mar, [facility] [address] [id number] [address] [place] [address], [place] [address] Mar, [facility] [address] [id number] [address] [place] [address], [place] [address] Mar, [facility] [address] [id number] [address] [place] [address], [place] [address] Mar, [facility] [address] [id number] [address] [place] [address], [place] [address] Mar, [facility] [address] [id number] [address] [place] [address], [place] [address] Feb, [facility] [address] [id number] [address] [place] [address], [place] [address] Feb, [facility] [address] [id number] [address] [place] [address], [place] [address] Feb, [facility] [address] [id number] [address] [place] [address], [place] [address] Feb, [facility] [address] [id number] [address] [place] [address], [place] [address] Feb, [facility] [address] [id number] [address] [place] [address], [place] [address] Feb, [facility] [address] [id number] [address] [place] [address], [place] [address] Feb, [facility] [address] [id number] [address] [place] [address], [place] [address] Feb, [facility] [address] [id number] [address] [place] [address], [place] [address] Feb, [facility] [address] [id number] [address] [place] [address], [place] [address] January, [facility] [address] [id number] [address] [place] [address], [place] [address] January, [facility] [address] [id number] [address] [place] [address], [place] [address] January, [facility] [address] [id number] [address] [place] [address], [place] [address] January, [facility] [address] [id number] [address] [place] [address], [place] [address] January, [facility] [address] [id number] [address] [place] [address], [place] [address] January, [facility] [address] [id number] [address] [place] [address], [place] [address] January, [facility] [address] [id number] [address] [place] [address], [place] [address] January, [facility] [address] [id number] [address] [place] [address], [place] [address] January, [facility] [address] [id number] [address] [place] [address], [place] [address] January, [facility] [address] [id number] [address] [place] [address], [place] [address] January, [facility] [address] [id number] [address] [place] [address], [place] [address] January, [facility] [address] [id number] [address] [place] [address], [place] [address] January, [facility] [address] [id number] [address] [place] [address], [place] [address] January, [facility] [address] [id number] [address] [place] [address], [place] [address] January, [facility] [address] [id number] [address] [place] [address], [place] [address] January, [facility] [address] [id number] [address] [place] [address], [place] [address] January, [facility] [address] [id number] [address] [place] [address], [place] [address] January, [facility] [address] [id number] [address] [place] [address], [place] [address] January, [facility] [address] [id number] [address] [place] [address], [place] [address] January, [facility] [address] [id number] [address] [place] [address], [place] [address] January, [facility] [address] [id number] [address] [place] [address], [place] [address] January, [facility] [address] [id number] [address] [place] [address], [place] [address] January, [facility] [address] [id number] [address] [place] [address], [place] [address] Dec, [facility] [address] [id number] [address] [place] [address], [place] [address] Dec, [facility] [address] [id number] [address] [place] [address], [place] [address] Dec, [facility] [address] [id number] [address] [place] [address], [place] [address] Dec, [facility] [address] [id number] [address] [place] [address], [place] [address] Dec, [facility] [address] [id number] [address] [place] [address], [place] [address] Nov, [facility] [address] [id number] [address] [place] [address], [place] [address] Oct, [facility] [address] [id number] [address] [place] [address], [place] [address] Oct, [facility] [address] [id number] [address] [place] [address], [place] [address] Oct, [facility] [address] [id number] [address] [place] [address], [place] [address] Oct, [facility] [address] [id number] [address] [place] [address], [place] [address] Oct, [facility] [address] [id number] [address] [place] [address], [place] [address] Sep, [facility] [address] [id number] [address] [place] [address], [place] [address] Sep, [facility] [address] [id number] [address] [place] [address], [place] [address] Sep, [facility] [address] [id number] [address] [place] [address], [place] [address] Aug, [facility] [address] [id number] [address] [place] [address], [place] [address] Aug, [facility] [address] [id number] [address] [place] [address], [place] [address] Aug, [facility] [address] [id number] [address] [place] [address], [place] [address] Aug, [facility] [address] [id number] [address] [place] [address], [place] [address] Jul, [facility] [address] [id number] [address] [place] [address], [place] [address] Jul, [facility] [address] [id number] [address] [place] [address], [place] [address] Jul, [facility] [address] [id number] [address] [place] [address], [place] [address] Jul, [facility] [address] [id number] [address] [place] [address], [place] [address] Jul, [facility] [address] [id number] [address] [place] [address], [place] [address] Jul, [facility] [address] [id number] [address] [place] [address], [place] [address] Jun, [facility] [address] [id number] [address] [place] [address], [place] [address] Jun, [facility] [address] [id number] [address] [place] [address], [place] [address] Jun, [facility] [address] [id number] [address] [place] [address], [place] [address] Jun, [facility] [address] [id number] [address] [place] [address], [place] [address] Jun, [facility] [address] [id number] [address] [place] [address], [place] [address] Jun, [facility] [address] [id number] [address] [place] [address], [place] [address] Jun, [facility] [address] [id number] [address] [place] [address], [place] [address] Jun, [facility] [address] [id number] [address] [place] [address], [place] [address] Jun, [facility] [address] [id number] [address] [place] [address], [place] [address] Jun, [facility] [address] [id number] [address] [place] [address], [place] [id number] 17 May, 2012 [facility] [address] [id number] [address] [place] [address], [place] [id number] 08 May, 2012 [facility] [address] [id number] [address] [place] [address], [place] [id number] 06 May, 2012 [facility] [address] [id number] [address] [place] [address], [place] [address] 30 Apr, 2012 [facility] [address] [id number] [address] [place] [address], [place] [address] 29 Apr, 2012 [facility] [address] [id number] [address] [place] [address], [place] [id number] 14 Apr, 2012 [facility] [address] [id number] [address] [place] [address], [place] [id number] Apr, [facility] [address] [id number] [address] [place] [address], [place] [address] Apr, [facility] [address] [id number] [address] [place] [id number] Apr, [facility] [address] [id number] [address] [place] [address], [place] [address] Apr, [facility] [address] [id number] [address] [place] [address], [place] [address] Apr, [facility] [address] [id number] [address] [place] [address], [place] [address] Apr, [facility] [address] [id number] [address] [place] [address], [place] [address] Mar, [facility] [address] [id number] [address] [place] [address], [place] [address] Mar, [facility] [address] [id number] [address] [place] [address], [place] [address] Mar, [facility] [address] [id number] [address] [place] [address], [place] [address] Mar, [facility] [address] [id number] [address] [place] [address], [place] [address] Feb, [facility] [address] [id number] [address] [place] [address], [place] [address] Feb, [facility] [address] [id number] [address] [place] [address], [place] [address] Feb, [facility] [address] [id number] [address] [place] [address], [place] [address] January, [facility] [address] [id number] [address] [place] [address], [place] [address] January, [facility] [address] [id number] [address] [place] [address], [place] [address] January, [facility] [address] [id number] [address] [place] [address], [place] [address] January, [facility] [address] [id number] [address] [place] [address], [place] [address] January, [facility] [address] [id number] [address] [place] [address], [place] [address] 30 Dec, 2011 [facility] [address] [id number] [address] [place] [address], [place] [address] Dec, [facility] [address] [id number] [address] [place] [address], [place] [address] 16 Dec, 2011 [facility] [address] [id number] [address] [place] [address], [place] [address] Oct, [facility] [address] [id number] [address] [place] [address], [place] [address] Oct, [facility] [address] [id number] [address] [place] [address], [place] [address] Oct, [facility] [address] [id number] [address] [place] [address], [place] [address] Sep, [facility] [address] [id number] [address] [place] [address], [place] [address] Sep, [facility] [address] [id number] [address] [place] [address], [place] [address] Aug, [facility] [address] [id number] [address] [place] [address], [place] [address] Jul, [facility] [address] [id number] [address] [place] [address], [place] [address] Jul, [facility] [address] [id number] [address] [place] [address], [place] [address] Mar, [facility] [address] [id number] [address] [place] [address], [place] [address] 10 Aug, 2010 [facility] [address] [id number] [address] [place] [address], [place] [address] 10 Jul, 2010 [facility] [address] [id number] [address] [place] [address], [place] [address] 04 Jul, 2010 [facility] [address] [id number] [address] [place] [address], [place] [address] 04 Jul, 2010 [facility] [address] [id number] [address] [place] [address], [place] [address] 04 Jul, 2010 [facility] [address] [id number] [address] [place] [id number] 14 Jun, 2010 [facility] [address] [id number] [address] [place] [address], [place] [address] 12 Jun, 2010 [facility] [address] [id number] [address] [place] [id number] 17 Apr, 2010 [facility] [address] [id number] [address] [place] [address], [place] [address] Aug, [facility] [address] [id number] [address] [place] [id number] Jul, [facility] [address] [id number] [address] [place] [address] Jul, [facility] [address] [id number] [address] [place] [address] Jul, [facility] [address] [id number] [address] [place] [id number] 23 Jun, 2009 [facility] [address] [id number] [address] [place] [address] 10 May, 2009 [facility] [address] [id number] [address] [place] [id number] 14 Dec, 2008 [facility] [address] [id number] [address] [place] [address] Nov, [facility] [address] [id number] [address] [place] [id number] 10 Oct, 2008 [facility] [address] [id number] [address] [place] [id number] 05 Aug, 2008 [facility] [address] [id number] [address] [place] [id number] Aug, [facility] [address] [id number] [address] [place] [address] 28 Jun, 2008 IMMUNIZATIONS No Known Immunizations [...] x 3 day s 04/2012 Hospitalization History [facility] [place]- Right wrist injury 03/29/2018
--- OUTSIDE RECORDS SUMMARY | 2020-04-09 00:10 | XMS REPORT ---
Author Author Kateryna Turner Doctor Organization [facility] Address Unknown Phone Unavailable Care Team Providers Care Treatment Coordinator Name Role Phone Migration, Doctor Unavailable Unavailable PROBLEMS Type Condition ICD9-CM Code [id number] Code Onset Dates Condition S tatus SNOMED Code Problem Irregular menses N92.6 Active 801 46188 Problem Migraine with aura and without status migrainosu s, not intractable G43.109 Active 9514581 Problem Uncontrolled type 2 diabetes mellitus with hyperglycemia E11.65 Active 891983162 Problem Morbid obesity due to excess calories E66.01 Active 857297355 Problem RLS (restless legs syndrome) G25.81 A ctive 89044286 Problem Morbid obesity E66.01 Active 31467 6002 ALLERGIES No Information ENCOUNTERS Encounter Location Date Diagnosis [facility] [address] [facility] [id number] [address] [place] [id number] January, [facility] [address] [facility] [id number] [address] [place] [id number] Dec, [facility] [address] [facility] [id number] [address] [place] [address] Dec, [facility] [address] [facility] [id number] [address] [place] [address] Dec, Uncontrolled type 2 diabetes mellitus with hyperglycemia E11.65 [facility] [address] [facility] [id number] [address] [place] [id number] 07 Dec, 2019 [facility] [address] [id number] [address] [place] [address] Dec, [facility] [address] [facility] [id number] [address] [place] [address] Dec, [facility] [address] [facility] [id number] [address] [place] [address] Nov, [facility] [address] [id number] [address] [place] [address] 28 Nov, 2019 [facility] [address] [id number] [address] [place] [address] 03 Nov, 2019 [facility] [address] [facility] [id number] [address] [place] [id number] 02 Nov, 2019 RLS (restless legs syndrome) G25.81 [facility] [address] [id number] [address] [place] [phone] 15 Oct, 2019 [facility] [address] [facility] [id number] [address] [place] [address] 09 Oct, 2019 Influenza J11.1 [facility] [address] [facility] [id number] [address] [place] [phone] 16 Sep, 2019 [facility] [address] [facility] [id number] [address] [place] [address] 14 Sep, 2019 [facility] [address] [facility] [id number] [address] [place] [address] 14 Sep, 2019 [facility] [address] [id number] [address] [place] [phone] 13 Sep, 2019 [facility] [address] [facility] [id number] [address] [place] [address] 10 Sep, 2019 Pneumonia of left lower lobe due to infectious organism J18.9 and Migraine with aura and without status migrainosus, not intractable G43.109 [facility] [address] [facility] [id number] [address] [place] [address] 10 Sep, 2019 [facility] [address] [facility] [id number] [address] [place] [address] 10 Sep, 2019 [facility] [address] [facility] [id number] [address] [place] [address] 08 Sep, 2019 [facility] [address] [facility] [id number] [address] [place] [phone] 08 Sep, 2019 [facility] [address] [id number] [address] [place] [id number] 08 Sep, 2019 Pneumonia of left lower lobe due to infectious organism J18.9 and Migraine with aura and without status migrainosus, not intractable G43.109 [facility] [address] [id number] [address] [place] [address] Aug, Irregular menses N92.6 ; Wel l woman exam Z01.419 ; Pelvic cramping R10.2 and Left breast lump N63.20 [facility] [address] [id number] [address] [place] [id number] Aug, [facility] [address] [facility] [id number] [address] [place] [address] 17 Aug, 2019 Well woman exam Z01.419 ; Le ft breast lump N63.20 ; Irregular menses N92.6 ; Encounter for immunization Z23 ; Pelvic cramping R10.2 and Screening for cervical cancer Z12.4 [facility] [address] [facility] [id number] [address] [place] [address] Aug, [facility] [address] [id number] [address] [place] [address] Aug, [facility] [address] [facility] [id number] [address] [place] [address] Aug, [facility] [address] [id number] [address] [place] [address] Jul, [facility] [address] [facility] [id number] [address] [place] [address] Jun, [facility] [address] [id number] [address] [place] [address] Jun, [facility] [address] [facility] [id number] [address] [place] [address] 14 Jun, 2019 [facility] [address] [facility] [id number] [address] [place] [address] Jun, BMI 50.0-59.9, adult Z68.43 [facility] [address] [place] [id number] [address] [place] [address] Jun, [facility] [address] [place] [id number] [place] [phone] May, Acute non-recurrent sinusiti s, unspecified location J01.90 ; Diarrhea, unspecified R19.7 ; Vomiting, unspecified R11.10 and Morbid obesity E66.01 [place] [address] [address] Apr, [place] [address] [address] Apr, Anemia due to other cause, n ot classified D64.89 and D-dimer, elevated R79.89 [place] [address] [address] Apr, [place] [address] [address] Apr, [place] [address] [address] Mar, Anemia due to other cause, n ot classified D64.89 and D-dimer, elevated R79.89 [place] [address] [address] Mar, Leg edema, right R60.0 ; Hig h risk medication use Z79.899 and Morbid obesity E66.01 [facility] [address] [place] [id number] [address] [place] [address] Mar, BMI 50.0-59.9, adult Z68.43 [place] [address] [id number] Mar, [place] [address] [address] January, Uncontrolled type 2 diabetes mellitus with hyperglycemia E11.65 ; RLS (restless legs syndrome) G25.81 and Morbid obesity E66.01 [facility] [address] [id number] [address] [place] [address] 15 Oct, 2018 Lipoma of right lower extrem ity D17.23 [facility] [address] [id number] [address] [place] [address] 05 Oct, 2018 Lipoma of right lower extrem ity D17.23 [facility] [address] [id number] [address] [place] [address] Sep, [facility] [address] [id number] [address] [place] [address] Sep, [facility] [address] [id number] [address] [place] [address] Sep, [facility] [address] [facility] [id number] [address] [place] [address] Sep, [facility] [address] [facility] [id number] [address] [place] [address] Sep, [facility] [address] [facility] [id number] [address] [place] [address] Aug, Uncontrolled type 2 diabetes mellitus with hyperglycemia E11.65 ; Morbid obesity due to excess calories E66.01 ; Lipoma of torso D17.1 and BMI 50.0-59.9, adult Z68.43 [facility] [address] [facility] [id number] [address] [place] [address] Jun, Encounter for immunization Z 23 [facility] [address] [id number] [address] [place] [address] Jul, [facility] [address] [facility] [id number] [address] [place] [address] Jun, Encounter for immunization Z 23 [facility] [address] [id number] [address] [place] [address] May, [facility] [address] [facility] [id number] [address] [place] [address] Jun, Encounter for immunization Z 23 [facility] [address] [id number] [address] [place] [address], [place] [address] 29 May, 2015 [facility] [address] [id number] [address] [place] [address], [place] [address] May, [facility] [address] [id number] [address] [place] [address], [place] [address] Apr, [facility] [address] [id number] [address] [place] [address], [place] [address] Feb, [facility] [address] [id number] [address] [place] [address], [place] [address] Feb, [facility] [address] [id number] [address] [place] [address], [place] [address] Feb, [facility] [address] [id number] [address] [place] [address], [place] [address] January, [facility] [address] [id number] [address] [place] [address], [place] [address] January, [facility] [address] [id number] [address] [place] [address], [place] [address] Dec, [facility] [address] [id number] [address] [place] [address], [place] [address] Dec, [facility] [address] [id number] [address] [place] [address] Nov, [facility] [address] [id number] [address] [place] [address] Nov, [facility] [address] [id number] [address] [place] [address] Nov, [facility] [address] [id number] [address] [place] [address] Nov, [facility] [address] [id number] [address] [place] [address], [place] [address] Nov, [facility] [address] [id number] [address] [place] [address], [place] [address] Nov, [facility] [address] [id number] [address] [place] [address], [place] [address] Nov, [facility] [address] [id number] [address] [place] [address], [place] [address] 18 Oct, 2014 [facility] [address] [id number] [address] [place] [address], [place] [address] Oct, [facility] [address] [id number] [address] [place] [address], [place] [address] Oct, [facility] [address] [id number] [address] [place] [address], [place] [address] Oct, [facility] [address] [id number] [address] [place] [address], [place] [address] Oct, [facility] [address] [id number] [address] [place] [address], [place] [address] Sep, [facility] [address] [id number] [address] [place] [address], [place] [address] Sep, [facility] [address] [id number] [address] [place] [address], [place] [address] Sep, [facility] [address] [id number] [address] [place] [address], [place] [address] Sep, [facility] [address] [id number] [address] [place] [address], [place] [address] Sep, [facility] [address] [id number] [address] [place] [address], [place] [address] Sep, [facility] [address] [id number] [address] [place] [address], [place] [address] Sep, [facility] [address] [id number] [address] [place] [address], [place] [address] Sep, [facility] [address] [id number] [address] [place] [address], [place] [address] Sep, [facility] [address] [id number] [address] [place] [address], [place] [address] Sep, [facility] [address] [id number] [address] [place] [address], [place] [address] Aug, [facility] [address] [id number] [address] [place] [address], [place] [address] Aug, [facility] [address] [id number] [address] [place] [address], [place] [address] Aug, [facility] [address] [id number] [address] [place] [address], [place] [address] Aug, [facility] [address] [id number] [address] [place] [address], [place] [address] Aug, [facility] [address] [id number] [address] [place] [address], [place] [address] Aug, [facility] [address] [id number] [address] [place] [address], [place] [address] Aug, [facility] [address] [id number] [address] [place] [address], [place] [address] Aug, [facility] [address] [id number] [address] [place] [address], [place] [address] Aug, [facility] [address] [id number] [address] [place] [address], [place] [address] Aug, [facility] [address] [id number] [address] [place] [address], [place] [address] Aug, [facility] [address] [id number] [address] [place] [address], [place] [address] Aug, [facility] [address] [id number] [address] [place] [address], [place] [address] Aug, [facility] [address] [id number] [address] [place] [address], [place] [address] Aug, [facility] [address] [id number] [address] [place] [address], [place] [address] 17 Aug, 2014 [facility] [address] [id number] [address] [place] [address], [place] [address] 17 Aug, 2014 [facility] [address] [id number] [address] [place] [address], [place] [address] 16 Aug, 2014 [facility] [address] [id number] [address] [place] [address], [place] [address] 16 Aug, 2014 [facility] [address] [id number] [address] [place] [address], [place] [address] Aug, [facility] [address] [id number] [address] [place] [address], [place] [address] Aug, [facility] [address] [id number] [address] [place] [address], [place] [address] Aug, [facility] [address] [id number] [address] [place] [address], [place] [address] Aug, [facility] [address] [id number] [address] [place] [address], [place] [address] 05 Aug, 2014 [facility] [address] [id number] [address] [place] [address], [place] [address] 05 Aug, 2014 [facility] [address] [id number] [address] [place] [address], [place] [address] Jul, [facility] [address] [id number] [address] [place] [address], [place] [address] Jul, [facility] [address] [id number] [address] [place] [address], [place] [address] Jun, [facility] [address] [id number] [address] [place] [address], [place] [address] Jun, [facility] [address] [id number] [address] [place] [address], [place] [address] Jun, [facility] [address] [id number] [address] [place] [address], [place] [address] Jun, [facility] [address] [id number] [address] [place] [address], [place] [address] 15 Jun, 2014 [facility] [address] [id number] [address] [place] [address], [place] [address] 15 Jun, 2014 [facility] [address] [id number] [address] [place] [address], [place] [address] 14 Jun, 2014 [facility] [address] [id number] [address] [place] [address], [place] [address] 14 Jun, 2014 [facility] [address] [id number] [address] [place] [address], [place] [address] 13 Jun, 2014 [facility] [address] [id number] [address] [place] [address], [place] [address] 13 Jun, 2014 [facility] [address] [id number] [address] [place] [address], [place] [address] 13 Jun, 2014 [facility] [address] [id number] [address] [place] [address], [place] [address] Jun, [facility] [address] [id number] [address] [place] [address], [place] [address] 06 Jun, 2014 [facility] [address] [id number] [address] [place] [address], [place] [address] 06 Jun, 2014 [facility] [address] [id number] [address] [place] [address] 26 May, 2013 [facility] [address] [id number] [address] [place] [address] 26 May, 2013 [facility] [address] [id number] [address] [place] [address], [place] [address] 22 May, 2013 [facility] [address] [id number] [address] [place] [address], [place] [address] 22 May, 2013 [facility] [address] [id number] [address] [place] [address], [place] [address] 04 May, 2013 [facility] [address] [id number] [address] [place] [address] May, [facility] [address] [id number] [address] [place] [address], [place] [address] May, [facility] [address] [id number] [address] [place] [address], [place] [address] May, [facility] [address] [id number] [address] [place] [address], [place] [address] Apr, [facility] [address] [id number] [address] [place] [address], [place] [address] Apr, [facility] [address] [id number] [address] [place] [address], [place] [address] Apr, [facility] [address] [id number] [address] [place] [address], [place] [address] Apr, [facility] [address] [id number] [address] [place] [address], [place] [address] Apr, [facility] [address] [id number] [address] [place] [address], [place] [address] Apr, [facility] [address] [id number] [address] [place] [address], [place] [id number] Apr, [facility] [address] [id number] [address] [place] [address], [place] [id number] Apr, [facility] [address] [id number] [address] [place] [address], [place] [address] Apr, [facility] [address] [id number] [address] [place] [address], [place] [address] Mar, [facility] [address] [id number] [address] [place] [address], [place] [id number] Mar, [facility] [address] [id number] [address] [place] [address], [place] [address] Mar, [facility] [address] [id number] [address] [place] [address], [place] [address] Feb, [facility] [address] [id number] [facility] [place] [id number] 30 Feb, 2014 [facility] [address] [id number] [facility] [place] [address] Feb, [facility] [address] [id number] [facility] [place] [id number] Feb, [facility] [address] [id number] [facility] [place] [address] Feb, [facility] [address] [id number] [facility] [place] [id number] 17 Feb, 2014 [facility] [address] [id number] [address] [place] [address], [place] [address] Feb, [facility] [address] [id number] [address] [place] [address], [place] [id number] Feb, [facility] [address] [id number] [address] [place] [address], [place] [address] Feb, [facility] [address] [id number] [address] [place] [address], [place] [id number] Feb, [facility] [address] [id number] [address] [place] [address], [place] [id number] Feb, [facility] [address] [id number] [address] [place] [address], [place] [id number] Feb, [facility] [address] [id number] [address] [place] [address], [place] [id number] Feb, [facility] [address] [id number] [address] [place] [address], [place] [address] Feb, [facility] [address] [id number] [address] [place] [address], [place] [address] Feb, [facility] [address] [id number] [address] [place] [address], [place] [id number] Feb, [facility] [address] [id number] [address] [place] [address], [place] [id number] January, [facility] [address] [id number] [facility] [place] [address] January, [facility] [address] [id number] [address] [place] [address], [place] [id number] January, [facility] [address] [id number] [address] [place] [address], [place] [id number] January, [facility] [address] [id number] [address] [place] [address], [place] [address] January, [facility] [address] [id number] [address] [place] [address], [place] [address] January, [facility] [address] [id number] [address] [place] [address], [place] [id number] January, [facility] [address] [id number] [address] [place] [address], [place] [address] January, [facility] [address] [id number] [address] [place] [address], [place] [id number] January, [facility] [address] [id number] [address] [place] [address], [place] [address] January, [facility] [address] [id number] [address] [place] [address], [place] [id number] January, [facility] [address] [id number] [address] [place] [address], [place] [address] January, [facility] [address] [id number] [address] [place] [address], [place] [address] January, [facility] [address] [id number] [address] [place] [address], [place] [id number] January, [facility] [address] [id number] [address] [place] [address], [place] [id number] January, [facility] [address] [id number] [address] [place] [address], [place] [id number] January, [facility] [address] [id number] [address] [place] [address], [place] [address] January, [facility] [address] [id number] [address] [place] [address], [place] [address] January, [facility] [address] [id number] [address] [place] [address], [place] [address] January, [facility] [address] [id number] [address] [place] [address], [place] [address] January, [facility] [address] [id number] [address] [place] [address], [place] [address] January, [facility] [address] [id number] [address] [place] [address], [place] [address] January, [facility] [address] [id number] [address] [place] [address], [place] [address] January, [facility] [address] [id number] [address] [place] [address], [place] [address] January, [facility] [address] [id number] [address] [place] [address], [place] [address] January, [facility] [address] [id number] [address] [place] [address], [place] [address] January, [facility] [address] [id number] [address] [place] [address], [place] [address] Dec, [facility] [address] [id number] [address] [place] [address], [place] [address] Dec, [facility] [address] [id number] [address] [place] [address], [place] [address] Dec, [facility] [address] [id number] [address] [place] [address], [place] [address] Dec, [facility] [address] [id number] [address] [place] [address], [place] [address] Dec, [facility] [address] [id number] [address] [place] [address], [place] [address] Dec, [facility] [address] [id number] [facility] [place] [address] Dec, [facility] [address] [id number] [address] [place] [address], [place] [address] Dec, [facility] [address] [id number] [address] [place] [address], [place] [address] Dec, [facility] [address] [id number] [address] [place] [address], [place] [address] Dec, [facility] [address] [id number] [address] [place] [address], [place] [address] Dec, [facility] [address] [id number] [address] [place] [address], [place] [address] Dec, [facility] [address] [id number] [address] [place] [address], [place] [address] Dec, [facility] [address] [id number] [address] [place] [address], [place] [address] Dec, [facility] [address] [id number] [address] [place] [address], [place] [address] Dec, [facility] [address] [id number] [address] [place] [address], [place] [address] Dec, [facility] [address] [id number] [address] [place] [address], [place] [address] Dec, [facility] [address] [id number] [address] [place] [address], [place] [address] Dec, [facility] [address] [id number] [address] [place] [address], [place] [address] Dec, [facility] [address] [id number] [address] [place] [address], [place] [address] Dec, [facility] [address] [id number] [address] [place] [address], [place] [address] Dec, [facility] [address] [id number] [address] [place] [address], [place] [id number] 07 Dec, 2013 [facility] [address] [id number] [facility] [place] [address] 31 Nov, 2013 [facility] [address] [id number] [address] [place] [address], [place] [address] 31 Nov, 2013 [facility] [address] [id number] [facility] [place] [address] Nov, [facility] [address] [id number] [address] [place] [address], [place] [address] Nov, [facility] [address] [id number] [facility] [place] [address] 24 Nov, 2013 [facility] [address] [id number] [address] [place] [address], [place] [address] 24 Nov, 2013 [facility] [address] [id number] [address] [place] [address], [place] [address] Nov, [facility] [address] [id number] [address] [place] [address], [place] [address] 22 Nov, 2013 [facility] [address] [id number] [address] [place] [address], [place] [address] 18 Nov, 2013 [facility] [address] [id number] [address] [place] [address], [place] [address] 18 Nov, 2013 [facility] [address] [id number] [address] [place] [address], [place] [address] 18 Nov, 2013 [facility] [address] [id number] [address] [place] [address], [place] [address] 18 Nov, 2013 [facility] [address] [id number] [address] [place] [address], [place] [address] 14 Nov, 2013 [facility] [address] [id number] [address] [place] [address], [place] [address] 14 Nov, 2013 [facility] [address] [id number] [address] [place] [address], [place] [address] 06 Nov, 2013 [facility] [address] [id number] [address] [place] [address], [place] [address] Nov, [facility] [address] [id number] [address] [place] [address], [place] [address] Oct, [facility] [address] [id number] [address] [place] [address], [place] [address] Oct, [facility] [address] [id number] [address] [place] [address], [place] [address] Oct, [facility] [address] [id number] [address] [place] [address], [place] [address] Oct, [facility] [address] [id number] [address] [place] [address], [place] [address] Oct, [facility] [address] [id number] [address] [place] [address], [place] [address] Oct, [facility] [address] [id number] [address] [place] [address], [place] [address] Oct, [facility] [address] [id number] [address] [place] [address], [place] [address] Oct, [facility] [address] [id number] [address] [place] [address], [place] [address] Oct, [facility] [address] [id number] [address] [place] [address], [place] [address] Oct, [facility] [address] [id number] [address] [place] [address] Oct, [facility] [address] [id number] [address] [place] [address], [place] [address] Oct, [facility] [address] [id number] [address] [place] [address], [place] [address] Oct, [facility] [address] [id number] [address] [place] [address], [place] [address] Oct, [facility] [address] [id number] [address] [place] [address] Oct, [facility] [address] [id number] [address] [place] [address], [place] [address] Sep, [facility] [address] [id number] [address] [place] [address], [place] [address] Sep, [facility] [address] [id number] [address] [place] [address], [place] [address] Sep, [facility] [address] [id number] [address] [place] [address], [place] [address] Sep, [facility] [address] [id number] [address] [place] [address], [place] [address] Sep, [facility] [address] [id number] [address] [place] [address], [place] [address] Sep, [facility] [address] [id number] [address] [place] [address], [place] [address] Sep, [facility] [address] [id number] [address] [place] [address], [place] [address] Sep, [facility] [address] [id number] [address] [place] [address], [place] [address] Sep, [facility] [address] [id number] [address] [place] [address], [place] [address] Sep, [facility] [address] [id number] [address] [place] [address], [place] [address] Sep, [facility] [address] [id number] [address] [place] [address], [place] [address] Sep, [facility] [address] [id number] [address] [place] [address], [place] [address] Sep, [facility] [address] [id number] [address] [place] [address], [place] [address] Aug, [facility] [address] [id number] [address] [place] [address], [place] [address] Aug, [facility] [address] [id number] [address] [place] [address], [place] [address] 24 Aug, 2013 [facility] [address] [id number] [address] [place] [address], [place] [address] 24 Aug, 2013 [facility] [address] [id number] [address] [place] [address], [place] [address] 17 Aug, 2013 [facility] [address] [id number] [address] [place] [address], [place] [address] 17 Aug, 2013 [facility] [address] [id number] [address] [place] [address], [place] [address] 16 Aug, 2013 [facility] [address] [id number] [address] [place] [address], [place] [address] 16 Aug, 2013 [facility] [address] [id number] [address] [place] [address], [place] [address] Aug, [facility] [address] [id number] [address] [place] [address], [place] [address] Aug, [facility] [address] [id number] [address] [place] [address], [place] [address] Aug, [facility] [address] [id number] [address] [place] [address], [place] [address] Aug, [facility] [address] [id number] [address] [place] [address], [place] [address] Aug, [facility] [address] [id number] [address] [place] [address], [place] [address] Aug, [facility] [address] [id number] [address] [place] [address], [place] [address] Jul, [facility] [address] [id number] [address] [place] [address], [place] [address] Jul, [facility] [address] [id number] [address] [place] [address], [place] [address] 18 Jul, 2013 [facility] [address] [id number] [address] [place] [address], [place] [address] 18 Jul, 2013 [facility] [address] [id number] [address] [place] [address], [place] [address] 14 Jul, 2013 [facility] [address] [id number] [address] [place] [address], [place] [address] 14 Jul, 2013 [facility] [address] [id number] [address] [place] [address], [place] [address] 14 Jul, 2013 [facility] [address] [id number] [address] [place] [id number] 14 Jul, 2013 [facility] [address] [id number] [address] [place] [address], [place] [address] 07 Jul, 2013 [facility] [address] [id number] [address] [place] [address] 07 Jul, 2013 [facility] [address] [id number] [address] [place] [address], [place] [id number] 06 Jul, 2013 [facility] [address] [id number] [address] [place] [address] 06 Jul, 2013 [facility] [address] [id number] [address] [place] [address] 05 Jul, 2013 [facility] [address] [id number] [address] [place] [address] 05 Jul, 2013 [facility] [address] [id number] [address] [place] [id number] 23 Jun, 2013 [facility] [address] [id number] [address] [place] [address] 23 Jun, 2013 [facility] [address] [id number] [address] [place] [address] 15 Jun, 2013 [facility] [address] [id number] [address] [place] [address] 15 Jun, 2013 [facility] [address] [id number] [address] [place] [address] 14 Jun, 2013 [facility] [address] [id number] [facility] [place] [address] 24 Sep, 2012 [facility] [address] [id number] [address] [place] [address], [place] [address] 20 Sep, 2012 [facility] [address] [id number] [address] [place] [address], [place] [address] 20 Sep, 2012 [facility] [address] [id number] [address] [place] [address], [place] [address] 20 Sep, 2012 [facility] [address] [id number] [address] [place] [address], [place] [address] 19 Sep, 2012 [facility] [address] [id number] [address] [place] [address], [place] [address] 13 May, 2012 [facility] [address] [id number] [address] [place] [address], [place] [address] 12 May, 2012 [facility] [address] [id number] [address] [place] [address], [place] [address] 12 May, 2012 [facility] [address] [id number] [address] [place] [address], [place] [address] 11 Sep, 2012 [facility] [address] [id number] [address] [place] [address], [place] [address] 11 May, 2012 [facility] [address] [id number] [address] [place] [address], [place] [address] 11 Sep, 2012 [facility] [address] [id number] [address] [place] [address], [place] [address] 09 Sep, 2012 [facility] [address] [id number] [address] [place] [address], [place] [address] 05 Sep, 2012 [facility] [address] [id number] [address] [place] [address], [place] [address] 04 Sep, 2012 [facility] [address] [id number] [address] [place] [address], [place] [address] 03 Sep, 2012 [facility] [address] [id number] [address] [place] [address], [place] [address] Apr, [facility] [address] [id number] [address] [place] [address], [place] [address] Apr, [facility] [address] [id number] [address] [place] [address], [place] [address] Apr, [facility] [address] [id number] [address] [place] [address], [place] [address] Apr, [facility] [address] [id number] [address] [place] [address], [place] [address] Apr, [facility] [address] [id number] [address] [place] [address], [place] [address] Apr, [facility] [address] [id number] [address] [place] [address], [place] [address] Apr, [facility] [address] [id number] [address] [place] [address], [place] [address] Apr, [facility] [address] [id number] [address] [place] [address], [place] [address] Apr, [facility] [address] [id number] [address] [place] [address], [place] [address] Mar, [facility] [address] [id number] [address] [place] [address], [place] [address] Mar, [facility] [address] [id number] [address] [place] [address], [place] [address] Mar, [facility] [address] [id number] [address] [place] [address], [place] [address] Mar, [facility] [address] [id number] [address] [place] [address], [place] [address] Mar, [facility] [address] [id number] [address] [place] [address], [place] [address] Mar, [facility] [address] [id number] [address] [place] [address], [place] [address] Mar, [facility] [address] [id number] [address] [place] [address], [place] [address] Mar, [facility] [address] [id number] [address] [place] [address], [place] [address] Mar, [facility] [address] [id number] [address] [place] [address], [place] [address] Mar, [facility] [address] [id number] [address] [place] [address], [place] [address] Mar, [facility] [address] [id number] [address] [place] [address], [place] [address] Feb, [facility] [address] [id number] [address] [place] [address], [place] [address] Feb, [facility] [address] [id number] [address] [place] [address], [place] [address] Feb, [facility] [address] [id number] [address] [place] [address], [place] [address] Feb, [facility] [address] [id number] [address] [place] [address], [place] [address] Feb, [facility] [address] [id number] [address] [place] [address], [place] [id number] Feb, [facility] [address] [id number] [address] [place] [address], [place] [id number] Feb, [facility] [address] [id number] [address] [place] [address], [place] [id number] Feb, [facility] [address] [id number] [address] [place] [address], [place] [id number] Feb, [facility] [address] [id number] [address] [place] [address], [place] [id number] January, [facility] [address] [id number] [address] [place] [address], [place] [id number] January, [facility] [address] [id number] [address] [place] [address], [place] [id number] January, [facility] [address] [id number] [address] [place] [address], [place] [address] January, [facility] [address] [id number] [address] [place] [address], [place] [id number] January, [facility] [address] [id number] [address] [place] [address], [place] [id number] January, [facility] [address] [id number] [address] [place] [address], [place] [address] January, [facility] [address] [id number] [address] [place] [address], [place] [address] January, [facility] [address] [id number] [address] [place] [address], [place] [id number] January, [facility] [address] [id number] [address] [place] [address], [place] [id number] January, [facility] [address] [id number] [address] [place] [address], [place] [address] January, [facility] [address] [id number] [address] [place] [address], [place] [id number] January, [facility] [address] [id number] [address] [place] [address], [place] [id number] January, [facility] [address] [id number] [address] [place] [address], [place] [id number] January, [facility] [address] [id number] [address] [place] [address], [place] [id number] January, [facility] [address] [id number] [address] [place] [address], [place] [id number] January, [facility] [address] [id number] [address] [place] [address], [place] [id number] January, [facility] [address] [id number] [address] [place] [address], [place] [id number] January, [facility] [address] [id number] [address] [place] [address], [place] [id number] January, [facility] [address] [id number] [address] [place] [address], [place] [address] January, [facility] [address] [id number] [address] [place] [address], [place] [id number] January, [facility] [address] [id number] [address] [place] [address], [place] [id number] January, [facility] [address] [id number] [address] [place] [address], [place] [id number] January, [facility] [address] [id number] [address] [place] [address], [place] [id number] Dec, [facility] [address] [id number] [address] [place] [address], [place] [id number] Dec, [facility] [address] [id number] [address] [place] [address], [place] [id number] Dec, [facility] [address] [id number] [address] [place] [address], [place] [id number] Dec, [facility] [address] [id number] [address] [place] [address], [place] [id number] Dec, [facility] [address] [id number] [address] [place] [address], [place] [id number] Nov, [facility] [address] [id number] [address] [place] [address], [place] [id number] Oct, [facility] [address] [id number] [address] [place] [address], [place] [id number] Oct, [facility] [address] [id number] [address] [place] [address], [place] [id number] Oct, [facility] [address] [id number] [address] [place] [address], [place] [id number] Oct, [facility] [address] [id number] [address] [place] [address], [place] [id number] Oct, [facility] [address] [id number] [address] [place] [address], [place] [address] Sep, [facility] [address] [id number] [address] [place] [address], [place] [address] Sep, [facility] [address] [id number] [address] [place] [place] [address], [place] [id number] Sep, [facility] [address] [id number] [address] [place] [address], [place] [id number] Aug, [facility] [address] [id number] [address] [place] [address], [place] [address] Aug, [facility] [address] [id number] [address] [place] [address], [place] [id number] Aug, [facility] [address] [id number] [address] [place] [address], [place] [address] Aug, [facility] [address] [id number] [address] [place] [address], [place] [address] Jul, [facility] [address] [id number] [address] [place] [address], [place] [address] Jul, [facility] [address] [id number] [address] [place] [address], [place] [address] Jul, [facility] [address] [id number] [address] [place] [address], [place] [address] Jul, [facility] [address] [id number] [address] [place] [address], [place] [id number] Jul, [facility] [address] [id number] [address] [place] [address], [place] [address] Jul, [facility] [address] [id number] [address] [place] [address], [place] [address] Jun, [facility] [address] [id number] [address] [place] [address], [place] [address] Jun, [facility] [address] [id number] [address] [place] [address], [place] [address] Jun, [facility] [address] [id number] [address] [place] [address], [place] [address] Jun, [facility] [address] [id number] [address] [place] [address], [place] [address] Jun, [facility] [address] [id number] [address] [place] [address], [place] [address] Jun, [facility] [address] [id number] [address] [place] [address], [place] [address] Jun, [facility] [address] [id number] [address] [place] [address], [place] [address] Jun, [facility] [address] [id number] [address] [place] [address], [place] [address] Jun, [facility] [address] [id number] [address] [place] [address], [place] [address] Jun, [facility] [address] [id number] [address] [place] [address], [place] [id number] 17 May, 2012 [facility] [address] [id number] [address] [place] [address], [place] [id number] 08 May, 2012 [facility] [address] [id number] [address] [place] [address], [place] [id number] 06 May, 2012 [facility] [address] [id number] [address] [place] [address], [place] [id number] 30 Apr, 2012 [facility] [address] [id number] [address] [place] [address], [place] [id number] 29 Apr, 2012 [facility] [address] [id number] [address] [place] [address], [place] [id number] 14 Apr, 2012 [facility] [address] [id number] [address] [place] [address], [place] [address] Apr, [facility] [address] [id number] [address] [place] [address], [place] [address] Apr, [facility] [address] [id number] [address] [place] [address] Apr, [facility] [address] [id number] [address] [place] [address], [place] [address] Apr, [facility] [address] [id number] [address] [place] [address], [place] [address] Apr, [facility] [address] [id number] [address] [place] [address], [place] [address] Apr, [facility] [address] [id number] [address] [place] [address], [place] [address] Mar, [facility] [address] [id number] [address] [place] [address], [place] [address] Mar, [facility] [address] [id number] [address] [place] [address], [place] [address] Mar, [facility] [address] [id number] [address] [place] [address], [place] [address] Mar, [facility] [address] [id number] [address] [place] [address], [place] [address] Feb, [facility] [address] [id number] [address] [place] [address], [place] [address] Feb, [facility] [address] [id number] [address] [place] [address], [place] [address] Feb, [facility] [address] [id number] [address] [place] [address], [place] [address] January, [facility] [address] [id number] [address] [place] [address], [place] [address] January, [facility] [address] [id number] [address] [place] [address], [place] [address] January, [facility] [address] [id number] [address] [place] [address], [place] [address] January, [facility] [address] [id number] [address] [place] [address], [place] [address] January, [facility] [address] [id number] [address] [place] [address], [place] [id number] 30 Dec, 2011 [facility] [address] [id number] [address] [place] [address], [place] [address] Dec, [facility] [address] [id number] [address] [place] [address], [place] [address] 16 Dec, 2011 [facility] [address] [id number] [address] [place] [address], [place] [address] Oct, [facility] [address] [id number] [address] [place] [address], [place] [address] Oct, [facility] [address] [id number] [address] [place] [address], [place] [address] Oct, [facility] [address] [id number] [address] [place] [address], [place] [address] Sep, [facility] [address] [id number] [address] [place] [address], [place] [address] Sep, [facility] [address] [id number] [address] [place] [address], [place] [address] Aug, [facility] [address] [id number] [address] [place] [address], [place] [id number] Jul, [facility] [address] [id number] [address] [place] [address], [place] [address] Jul, [facility] [address] [id number] [address] [place] [address], [place] [address] Mar, [facility] [address] [id number] [address] [place] [address], [place] [address] 10 Aug, 2010 [facility] [address] [id number] [address] [place] [address], [place] [id number] 10 Jul, 2010 [facility] [address] [id number] [address] [place] [address], [place] [address] 04 Jul, 2010 [facility] [address] [id number] [address] [place] [address], [place] [address] 04 Jul, 2010 [facility] [address] [id number] [address] [place] [address], [place] [address] 04 Jul, 2010 [facility] [address] [id number] [address] [place] [id number] 14 Jun, 2010 [facility] [address] [id number] [address] [place] [address], [place] [address] 12 Jun, 2010 [facility] [address] [id number] [address] [place] [id number] 17 Apr, 2010 [facility] [address] [id number] [address] [place] [address], [place] [address] Aug, [facility] [address] [id number] [address] [place] [id number] Jul, [facility] [address] [id number] [address] [place] [address] Jul, [facility] [address] [id number] [address] [place] [id number] Jul, [facility] [address] [id number] [address] [place] [address] 23 Jun, 2009 [facility] [address] [id number] [address] [place] [id number] 10 May, 2009 [facility] [address] [id number] [address] [place] [id number] 14 Dec, 2008 [facility] [address] [id number] [address] [place] [id number] Nov, [facility] [address] [id number] [address] [place] [id number] 10 Oct, 2008 [facility] [address] [id number] [address] [place] [id number] 05 Aug, 2008 [facility] [address] [id number] [address] [place] [id number] Aug, [facility] [address] [id number] [address] [place] [address] 28 Jun, 2008 IMMUNIZATIONS No Known Immunizations [...] x 3 day s 04/2012 Hospitalization History [facility] [place]- Right wrist injury 03/29/2018
--- OUTSIDE RECORDS SUMMARY | 2020-04-09 00:10 | XMS REPORT ---
Author Author Kateryna Turner Doctor Organization [facility] Address Unknown Phone Unavailable Care Team Providers Care [employer] Leak Tester Name Role Phone Migration, Doctor Unavailable Unavailable PROBLEMS Type Condition ICD9-CM Code OAG97-GO Code Onset Dates Condition S tatus SNOMED Code Problem Irregular menses N92.6 Active 801 33272 Problem Migraine with aura and without status migrainosu s, not intractable G43.109 Active 6055508 Problem Uncontrolled type 2 diabetes mellitus with hyperglycemia E11.65 Active 482718786 Problem Morbid obesity due to excess calories E66.01 Active 586146155 Problem RLS (restless legs syndrome) G25.81 A ctive 97698146 Problem Morbid obesity E66.01 Active 88522 6002 ALLERGIES No Information ENCOUNTERS Encounter Location Date Diagnosis [facility] [address] [facility] [id number] [address] [place] [phone] January, [facility] [address] [facility] [id number] [address] [place] [address] Dec, [facility] [address] [facility] [id number] [address] [place] [phone] Dec, [facility] [address] [facility] [id number] [address] [place] [address] Dec, Uncontrolled type 2 diabetes mellitus with hyperglycemia E11.65 [facility] [address] [facility] [id number] [address] [place] [id number] 07 Dec, 2019 [facility] [address] [id number] [address] [place] [phone] Dec, [facility] [address] [facility] [id number] [address] [place] [phone] Dec, [facility] [address] [facility] [id number] [address] [place] [phone] Nov, [facility] [address] [id number] [address] [place] [id number] 28 Nov, 2019 [facility] [address] [id number] [address] [place] [id number] 03 Nov, 2019 [facility] [address] [facility] [id number] [address] [place] [id number] 02 Nov, 2019 RLS (restless legs syndrome) G25.81 [facility] [address] [id number] [address] [place] [id number] 15 Oct, 2019 [facility] [address] [facility] [id number] [address] [place] [id number] 09 Oct, 2019 Influenza J11.1 [facility] [address] [facility] [id number] [address] [place] [phone] 16 Sep, 2019 [facility] [address] [facility] [id number] [address] [place] [phone] 14 Sep, 2019 [facility] [address] [facility] [id number] [address] [place] [id number] 14 Sep, 2019 [facility] [address] [id number] [address] [place] [id number] 13 Sep, 2019 [facility] [address] [facility] [id number] [address] [place] [id number] 10 Sep, 2019 Pneumonia of left lower lobe due to infectious organism J18.9 and Migraine with aura and without status migrainosus, not intractable G43.109 [facility] [address] [facility] [id number] [address] [place] [phone] 10 Sep, 2019 [facility] [address] [facility] [id number] [address] [place] [id number] 10 Sep, 2019 [facility] [address] [facility] [id number] [address] [place] [id number] 08 Sep, 2019 [facility] [address] [facility] [id number] [address] [place] [phone] 08 Sep, 2019 [facility] [address] [id number] [address] [place] [id number] 08 Sep, 2019 Pneumonia of left lower lobe due to infectious organism J18.9 and Migraine with aura and without status migrainosus, not intractable G43.109 [facility] [address] [id number] [address] [place] [address] Aug, Irregular menses N92.6 ; Wel l woman exam Z01.419 ; Pelvic cramping R10.2 and Left breast lump N63.20 [facility] [address] [id number] [address] [place] [id number] Aug, [facility] [address] [facility] [id number] [address] [place] [address] 17 Aug, 2019 Well woman exam Z01.419 ; Le ft breast lump N63.20 ; Irregular menses N92.6 ; Encounter for immunization Z23 ; Pelvic cramping R10.2 and Screening for cervical cancer Z12.4 [facility] [address] [facility] [id number] [address] [place] [phone] Aug, [facility] [address] [id number] [address] [place] [phone] Aug, [facility] [address] [facility] [id number] [address] [place] [phone] Aug, [facility] [address] [id number] [address] [place] [phone] Jul, [facility] [address] [facility] [id number] [address] [place] [phone] Jun, [facility] [address] [id number] [address] [place] [phone] Jun, [facility] [address] [facility] [id number] [address] [place] [phone] 14 Jun, 2019 [facility] [address] [facility] [id number] [address] [place] [address] Jun, BMI 50.0-59.9, adult Z68.43 [facility] [address] [place] [id number] [address] [place] [phone] Jun, [facility] [address] [place] [id number] [place] [phone] May, Acute non-recurrent sinusiti s, unspecified location J01.90 ; Diarrhea, unspecified R19.7 ; Vomiting, unspecified R11.10 and Morbid obesity E66.01 [place] [address] [address] Apr, [place] [address] [address] Apr, Anemia due to other cause, n ot classified D64.89 and D-dimer, elevated R79.89 [place] [address] [address] Apr, [place] [address] [address] Apr, [place] [address] [address] Mar, Anemia due to other cause, n ot classified D64.89 and D-dimer, elevated R79.89 [place] [address] [address] Mar, Leg edema, right R60.0 ; Hig h risk medication use Z79.899 and Morbid obesity E66.01 [facility] [address] [place] [id number] [address] [place] [address] Mar, BMI 50.0-59.9, adult Z68.43 [place] [address] [address] Mar, [place] [address] [address] January, Uncontrolled type 2 diabetes mellitus with hyperglycemia E11.65 ; RLS (restless legs syndrome) G25.81 and Morbid obesity E66.01 [facility] [address] [id number] [address] [place] [id number] 15 Oct, 2018 Lipoma of right lower extrem ity D17.23 [facility] [address] [id number] [address] [place] [id number] 05 Oct, 2018 Lipoma of right lower extrem ity D17.23 [facility] [address] [id number] [address] [place] [phone] Sep, [facility] [address] [id number] [address] [place] [phone] Sep, [facility] [address] [id number] [address] [place] [phone] Sep, [facility] [address] [facility] [id number] [address] [place] [id number] Sep, [facility] [address] [facility] [id number] [address] [place] [phone] Sep, [facility] [address] [facility] [id number] [address] [place] [address] Aug, Uncontrolled type 2 diabetes mellitus with hyperglycemia E11.65 ; Morbid obesity due to excess calories E66.01 ; Lipoma of torso D17.1 and BMI 50.0-59.9, adult Z68.43 [facility] [address] [facility] [id number] [address] [place] [id number] Jun, Encounter for immunization Z 23 [facility] [address] [id number] [address] [place] [phone] Jul, [facility] [address] [facility] [id number] [address] [place] [phone] Jun, Encounter for immunization Z 23 [facility] [address] [id number] [address] [place] [phone] May, [facility] [address] [facility] [id number] [address] [place] [id number] Jun, Encounter for immunization Z 23 [facility] [address] [id number] [address] [place] [address], [place] [address] 29 May, 2015 [facility] [address] [id number] [address] [place] [address], [place] [address] May, [facility] [address] [id number] [address] [place] [address], [place] [address] Apr, [facility] [address] [id number] [address] [place] [address], [place] [address] Feb, [facility] [address] [id number] [address] [place] [address], [place] [address] Feb, [facility] [address] [id number] [address] [place] [address], [place] [address] Feb, [facility] [address] [id number] [address] [place] [address], [place] [address] January, [facility] [address] [id number] [address] [place] [address], [place] [address] January, [facility] [address] [id number] [address] [place] [address], [place] [address] Dec, [facility] [address] [id number] [address] [place] [address], [place] [address] Dec, [facility] [address] [id number] [address] [place] [id number] Nov, [facility] [address] [id number] [address] [place] [phone] Nov, [facility] [address] [id number] [address] [place] [phone] Nov, [facility] [address] [id number] [address] [place] [phone] Nov, [facility] [address] [id number] [address] [place] [address], [place] [address] Nov, [facility] [address] [id number] [address] [place] [address], [place] [address] Nov, [facility] [address] [id number] [address] [place] [address], [place] [address] Nov, [facility] [address] [id number] [address] [place] [address], [place] [address] 18 Oct, 2014 [facility] [address] [id number] [address] [place] [address], [place] [address] Oct, [facility] [address] [id number] [address] [place] [address], [place] [address] Oct, [facility] [address] [id number] [address] [place] [address], [place] [address] Oct, [facility] [address] [id number] [address] [place] [address], [place] [address] Oct, [facility] [address] [id number] [address] [place] [address], [place] [address] Sep, [facility] [address] [id number] [address] [place] [address], [place] [address] Sep, [facility] [address] [id number] [address] [place] [address], [place] [address] Sep, [facility] [address] [id number] [address] [place] [address], [place] [address] Sep, [facility] [address] [id number] [address] [place] [address], [place] [address] Sep, [facility] [address] [id number] [address] [place] [address], [place] [address] Sep, [facility] [address] [id number] [address] [place] [address], [place] [address] Sep, [facility] [address] [id number] [address] [place] [address], [place] [address] Sep, [facility] [address] [id number] [address] [place] [address], [place] [address] Sep, [facility] [address] [id number] [address] [place] [address], [place] [address] Sep, [facility] [address] [id number] [address] [place] [address], [place] [address] Aug, [facility] [address] [id number] [address] [place] [address], [place] [address] Aug, [facility] [address] [id number] [address] [place] [address], [place] [address] Aug, [facility] [address] [id number] [address] [place] [address], [place] [address] Aug, [facility] [address] [id number] [address] [place] [address], [place] [address] Aug, [facility] [address] [id number] [address] [place] [address], [place] [address] Aug, [facility] [address] [id number] [address] [place] [address], [place] [address] Aug, [facility] [address] [id number] [address] [place] [address], [place] [address] Aug, [facility] [address] [id number] [address] [place] [address], [place] [address] Aug, [facility] [address] [id number] [address] [place] [address], [place] [address] Aug, [facility] [address] [id number] [address] [place] [address], [place] [address] Aug, [facility] [address] [id number] [address] [place] [address], [place] [address] Aug, [facility] [address] [id number] [address] [place] [address], [place] [address] Aug, [facility] [address] [id number] [address] [place] [address], [place] [address] Aug, [facility] [address] [id number] [address] [place] [address], [place] [address] 17 Aug, 2014 [facility] [address] [id number] [address] [place] [address], [place] [address] 17 Aug, 2014 [facility] [address] [id number] [address] [place] [address], [place] [address] 16 Aug, 2014 [facility] [address] [id number] [address] [place] [address], [place] [address] 16 Aug, 2014 [facility] [address] [id number] [address] [place] [address], [place] [address] Aug, [facility] [address] [id number] [address] [place] [address], [place] [address] Aug, [facility] [address] [id number] [address] [place] [address], [place] [address] Aug, [facility] [address] [id number] [address] [place] [address], [place] [address] Aug, [facility] [address] [id number] [address] [place] [address], [place] [address] 05 Aug, 2014 [facility] [address] [id number] [address] [place] [address], [place] [address] 05 Aug, 2014 [facility] [address] [id number] [address] [place] [address], [place] [address] Jul, [facility] [address] [id number] [address] [place] [address], [place] [address] Jul, [facility] [address] [id number] [address] [place] [address], [place] [address] Jun, [facility] [address] [id number] [address] [place] [address], [place] [address] Jun, [facility] [address] [id number] [address] [place] [address], [place] [address] Jun, [facility] [address] [id number] [address] [place] [address], [place] [address] Jun, [facility] [address] [id number] [address] [place] [address], [place] [address] 15 Jun, 2014 [facility] [address] [id number] [address] [place] [address], [place] [address] 15 Jun, 2014 [facility] [address] [id number] [address] [place] [address], [place] [address] 14 Jun, 2014 [facility] [address] [id number] [address] [place] [address], [place] [address] 14 Jun, 2014 [facility] [address] [id number] [address] [place] [address], [place] [address] 13 Jun, 2014 [facility] [address] [id number] [address] [place] [address], [place] [address] 13 Jun, 2014 [facility] [address] [id number] [address] [place] [address], [place] [address] 13 Jun, 2014 [facility] [address] [id number] [address] [place] [address], [place] [address] Jun, [facility] [address] [id number] [address] [place] [address], [place] [address] 06 Jun, 2014 [facility] [address] [id number] [address] [place] [address], [place] [address] 06 Jun, 2014 [facility] [address] [id number] [address] [place] [address] 26 May, 2013 [facility] [address] [id number] [address] [place] [id number] 26 May, 2013 [facility] [address] [id number] [address] [place] [address], [place] [address] 22 May, 2013 [facility] [address] [id number] [address] [place] [address], [place] [address] 22 May, 2013 [facility] [address] [id number] [address] [place] [address], [place] [address] 04 May, 2013 [facility] [address] [id number] [address] [place] [address] May, [facility] [address] [id number] [address] [place] [address], [place] [address] May, [facility] [address] [id number] [address] [place] [address], [place] [address] May, [facility] [address] [id number] [address] [place] [address], [place] [address] Apr, [facility] [address] [id number] [address] [place] [address], [place] [address] Apr, [facility] [address] [id number] [address] [place] [address], [place] [address] Apr, [facility] [address] [id number] [address] [place] [address], [place] [address] Apr, [facility] [address] [id number] [address] [place] [address], [place] [address] Apr, [facility] [address] [id number] [address] [place] [address], [place] [address] Apr, [facility] [address] [id number] [address] [place] [address], [place] [address] Apr, [facility] [address] [id number] [address] [place] [address], [place] [address] Apr, [facility] [address] [id number] [address] [place] [address], [place] [address] Apr, [facility] [address] [id number] [address] [place] [address], [place] [address] Mar, [facility] [address] [id number] [address] [place] [address], [place] [address] Mar, [facility] [address] [id number] [address] [place] [address], [place] [address] Mar, [facility] [address] [id number] [address] [place] [address], [place] [address] Feb, [facility] [address] [id number] [address] [place] [address] 30 Feb, 2014 [facility] [address] [id number] [address] [place] [address] Feb, [facility] [address] [id number] [address] [place] [address] Feb, [facility] [address] [id number] [address] [place] [address] Feb, [facility] [address] [id number] [address] [place] [address] 17 Feb, 2014 [facility] [address] [id number] [address] [place] [address], [place] [address] Feb, [facility] [address] [id number] [address] [place] [address], [place] [address] Feb, [facility] [address] [id number] [address] [place] [address], [place] [address] Feb, [facility] [address] [id number] [address] [place] [address], [place] [address] Feb, [facility] [address] [id number] [address] [place] [address], [place] [address] Feb, [facility] [address] [id number] [address] [place] [address], [place] [address] Feb, [facility] [address] [id number] [address] [place] [address], [place] [address] Feb, [facility] [address] [id number] [address] [place] [address], [place] [address] Feb, [facility] [address] [id number] [address] [place] [address], [place] [address] Feb, [facility] [address] [id number] [address] [place] [address], [place] [address] Feb, [facility] [address] [id number] [address] [place] [address], [place] [address] January, [facility] [address] [id number] [address] [place] [address] January, [facility] [address] [id number] [address] [place] [address], [place] [address] January, [facility] [address] [id number] [address] [place] [address], [place] [address] January, [facility] [address] [id number] [address] [place] [address], [place] [address] January, [facility] [address] [id number] [address] [place] [address], [place] [address] January, [facility] [address] [id number] [address] [place] [address], [place] [address] January, [facility] [address] [id number] [address] [place] [address], [place] [address] January, [facility] [address] [id number] [address] [place] [address], [place] [address] January, [facility] [address] [id number] [address] [place] [address], [place] [address] January, [facility] [address] [id number] [address] [place] [address], [place] [address] January, [facility] [address] [id number] [address] [place] [address], [place] [address] January, [facility] [address] [id number] [address] [place] [address], [place] [address] January, [facility] [address] [id number] [address] [place] [address], [place] [address] January, [facility] [address] [id number] [address] [place] [address], [place] [address] January, [facility] [address] [id number] [address] [place] [address], [place] [address] January, [facility] [address] [id number] [address] [place] [address], [place] [address] January, [facility] [address] [id number] [address] [place] [address], [place] [address] January, [facility] [address] [id number] [address] [place] [address], [place] [address] January, [facility] [address] [id number] [address] [place] [address], [place] [address] January, [facility] [address] [id number] [address] [place] [address], [place] [address] January, [facility] [address] [id number] [address] [place] [address], [place] [address] January, [facility] [address] [id number] [address] [place] [address], [place] [address] January, [facility] [address] [id number] [address] [place] [address], [place] [address] January, [facility] [address] [id number] [address] [place] [address], [place] [address] January, [facility] [address] [id number] [address] [place] [address], [place] [address] January, [facility] [address] [id number] [address] [place] [address], [place] [address] Dec, [facility] [address] [id number] [address] [place] [address], [place] [address] Dec, [facility] [address] [id number] [address] [place] [address], [place] [address] Dec, [facility] [address] [id number] [address] [place] [address], [place] [address] Dec, [facility] [address] [id number] [address] [place] [address], [place] [address] Dec, [facility] [address] [id number] [address] [place] [address], [place] [address] Dec, [facility] [address] [id number] [address] [place] [address] Dec, [facility] [address] [id number] [address] [place] [address], [place] [address] Dec, [facility] [address] [id number] [address] [place] [address], [place] [address] Dec, [facility] [address] [id number] [address] [place] [address], [place] [address] Dec, [facility] [address] [id number] [address] [place] [address], [place] [address] Dec, [facility] [address] [id number] [address] [place] [address], [place] [address] Dec, [facility] [address] [id number] [address] [place] [address], [place] [address] Dec, [facility] [address] [id number] [address] [place] [address], [place] [address] Dec, [facility] [address] [id number] [address] [place] [address], [place] [address] Dec, [facility] [address] [id number] [address] [place] [address], [place] [address] Dec, [facility] [address] [id number] [address] [place] [address], [place] [address] Dec, [facility] [address] [id number] [address] [place] [address], [place] [address] Dec, [facility] [address] [id number] [address] [place] [address], [place] [address] Dec, [facility] [address] [id number] [address] [place] [address], [place] [address] Dec, [facility] [address] [id number] [address] [place] [address], [place] [address] Dec, [facility] [address] [id number] [address] [place] [address], [place] [address] 07 Dec, 2013 [facility] [address] [id number] [address] [place] [address] 31 Nov, 2013 [facility] [address] [id number] [address] [place] [address], [place] [address] 31 Nov, 2013 [facility] [address] [id number] [address] [place] [address] Nov, [facility] [address] [id number] [address] [place] [address], [place] [address] Nov, [facility] [address] [id number] [address] [place] [address] 24 Nov, 2013 [facility] [address] [id number] [address] [place] [address], [place] [address] 24 Nov, 2013 [facility] [address] [id number] [address] [place] [address], [place] [address] Nov, [facility] [address] [id number] [address] [place] [address], [place] [address] 22 Nov, 2013 [facility] [address] [id number] [address] [place] [address], [place] [address] 18 Nov, 2013 [facility] [address] [id number] [address] [place] [address], [place] [address] 18 Nov, 2013 [facility] [address] [id number] [address] [place] [address], [place] [address] 18 Nov, 2013 [facility] [address] [id number] [address] [place] [address], [place] [address] 18 Nov, 2013 [facility] [address] [id number] [address] [place] [address], [place] [address] 14 Nov, 2013 [facility] [address] [id number] [address] [place] [address], [place] [address] 14 Nov, 2013 [facility] [address] [id number] [address] [place] [address], [place] [address] 06 Nov, 2013 [facility] [address] [id number] [address] [place] [address], [place] [address] Nov, [facility] [address] [id number] [address] [place] [address], [place] [address] Oct, [facility] [address] [id number] [address] [place] [address], [place] [address] Oct, [facility] [address] [id number] [address] [place] [address], [place] [address] Oct, [facility] [address] [id number] [address] [place] [address], [place] [address] Oct, [facility] [address] [id number] [address] [place] [address], [place] [address] Oct, [facility] [address] [id number] [address] [place] [address], [place] [address] Oct, [facility] [address] [id number] [address] [place] [address], [place] [address] Oct, [facility] [address] [id number] [address] [place] [address], [place] [address] Oct, [facility] [address] [id number] [address] [place] [address], [place] [address] Oct, [facility] [address] [id number] [address] [place] [address], [place] [address] Oct, [facility] [address] [id number] [address] [place] [address] Oct, [facility] [address] [id number] [address] [place] [address], [place] [address] Oct, [facility] [address] [id number] [address] [place] [address], [place] [address] Oct, [facility] [address] [id number] [address] [place] [address], [place] [address] Oct, [facility] [address] [id number] [address] [place] [id number] Oct, [facility] [address] [id number] [address] [place] [address], [place] [address] Sep, [facility] [address] [id number] [address] [place] [address], [place] [address] Sep, [facility] [address] [id number] [address] [place] [address], [place] [address] Sep, [facility] [address] [id number] [address] [place] [address], [place] [address] Sep, [facility] [address] [id number] [address] [place] [address], [place] [address] Sep, [facility] [address] [id number] [address] [place] [address], [place] [address] Sep, [facility] [address] [id number] [address] [place] [address], [place] [address] Sep, [facility] [address] [id number] [address] [place] [address], [place] [address] Sep, [facility] [address] [id number] [address] [place] [address], [place] [address] Sep, [facility] [address] [id number] [address] [place] [address], [place] [address] Sep, [facility] [address] [id number] [address] [place] [address], [place] [address] Sep, [facility] [address] [id number] [address] [place] [address], [place] [address] Sep, [facility] [address] [id number] [address] [place] [address], [place] [address] Sep, [facility] [address] [id number] [address] [place] [address], [place] [address] Aug, [facility] [address] [id number] [address] [place] [address], [place] [address] Aug, [facility] [address] [id number] [address] [place] [address], [place] [address] 24 Aug, 2013 [facility] [address] [id number] [address] [place] [address], [place] [address] 24 Aug, 2013 [facility] [address] [id number] [address] [place] [address], [place] [address] 17 Aug, 2013 [facility] [address] [id number] [address] [place] [address], [place] [address] 17 Aug, 2013 [facility] [address] [id number] [address] [place] [address], [place] [address] 16 Aug, 2013 [facility] [address] [id number] [address] [place] [address], [place] [address] 16 Aug, 2013 [facility] [address] [id number] [address] [place] [address], [place] [address] Aug, [facility] [address] [id number] [address] [place] [address], [place] [address] Aug, [facility] [address] [id number] [address] [place] [address], [place] [address] Aug, [facility] [address] [id number] [address] [place] [address], [place] [address] Aug, [facility] [address] [id number] [address] [place] [address], [place] [address] Aug, [facility] [address] [id number] [address] [place] [address], [place] [address] Aug, [facility] [address] [id number] [address] [place] [address], [place] [address] Jul, [facility] [address] [id number] [address] [place] [address], [place] [address] Jul, [facility] [address] [id number] [address] [place] [address], [place] [address] 18 Jul, 2013 [facility] [address] [id number] [address] [place] [address], [place] [address] 18 Jul, 2013 [facility] [address] [id number] [address] [place] [address], [place] [address] 14 Jul, 2013 [facility] [address] [id number] [address] [place] [address], [place] [address] 14 Jul, 2013 [facility] [address] [id number] [address] [place] [address], [place] [address] 14 Jul, 2013 [facility] [address] [id number] [address] [place] [address] 14 Jul, 2013 [facility] [address] [id number] [address] [place] [address], [place] [address] 07 Jul, 2013 [facility] [address] [id number] [address] [place] [id number] 07 Jul, 2013 [facility] [address] [id number] [address] [place] [address], [place] [address] 06 Jul, 2013 [facility] [address] [id number] [address] [place] [id number] 06 Jul, 2013 [facility] [address] [id number] [address] [place] [id number] 05 Jul, 2013 [facility] [address] [id number] [address] [place] [address] 05 Jul, 2013 [facility] [address] [id number] [address] [place] [address] 23 Jun, 2013 [facility] [address] [id number] [address] [place] [address] 23 Jun, 2013 [facility] [address] [id number] [address] [place] [id number] 15 Jun, 2013 [facility] [address] [id number] [address] [place] [id number] 15 Jun, 2013 [facility] [address] [id number] [address] [place] [id number] 14 Jun, 2013 [facility] [address] [id number] [facility] [place] [address] 24 Sep, 2012 [facility] [address] [id number] [address] [place] [address], [place] [address] 20 Sep, 2012 [facility] [address] [id number] [address] [place] [address], [place] [address] 20 Sep, 2012 [facility] [address] [id number] [address] [place] [address], [place] [address] 20 Sep, 2012 [facility] [address] [id number] [address] [place] [address], [place] [address] 19 Sep, 2012 [facility] [address] [id number] [address] [place] [address], [place] [address] 13 May, 2012 [facility] [address] [id number] [address] [place] [address], [place] [address] 12 May, 2012 [facility] [address] [id number] [address] [place] [address], [place] [address] 12 May, 2012 [facility] [address] [id number] [address] [place] [address], [place] [address] 11 Sep, 2012 [facility] [address] [id number] [address] [place] [address], [place] [address] 11 May, 2012 [facility] [address] [id number] [address] [place] [address], [place] [address] 11 Sep, 2012 [facility] [address] [id number] [address] [place] [address], [place] [address] 09 Sep, 2012 [facility] [address] [id number] [address] [place] [address], [place] [address] 05 Sep, 2012 [facility] [address] [id number] [address] [place] [address], [place] [address] 04 Sep, 2012 [facility] [address] [id number] [address] [place] [address], [place] [address] 03 Sep, 2012 [facility] [address] [id number] [address] [place] [address], [place] [address] Apr, [facility] [address] [id number] [address] [place] [address], [place] [address] Apr, [facility] [address] [id number] [address] [place] [address], [place] [address] Apr, [facility] [address] [id number] [address] [place] [address], [place] [address] Apr, [facility] [address] [id number] [address] [place] [address], [place] [address] Apr, [facility] [address] [id number] [address] [place] [address], [place] [address] Apr, [facility] [address] [id number] [address] [place] [address], [place] [address] Apr, [facility] [address] [id number] [address] [place] [address], [place] [address] Apr, [facility] [address] [id number] [address] [place] [address], [place] [address] Apr, [facility] [address] [id number] [address] [place] [address], [place] [address] Mar, [facility] [address] [id number] [address] [place] [address], [place] [address] Mar, [facility] [address] [id number] [address] [place] [address], [place] [address] Mar, [facility] [address] [id number] [address] [place] [address], [place] [address] Mar, [facility] [address] [id number] [address] [place] [address], [place] [address] Mar, [facility] [address] [id number] [address] [place] [address], [place] [address] Mar, [facility] [address] [id number] [address] [place] [address], [place] [address] Mar, [facility] [address] [id number] [address] [place] [address], [place] [address] Mar, [facility] [address] [id number] [address] [place] [address], [place] [address] Mar, [facility] [address] [id number] [address] [place] [address], [place] [address] Mar, [facility] [address] [id number] [address] [place] [address], [place] [address] Mar, [facility] [address] [id number] [address] [place] [address], [place] [address] Feb, [facility] [address] [id number] [address] [place] [address], [place] [address] Feb, [facility] [address] [id number] [address] [place] [address], [place] [address] Feb, [facility] [address] [id number] [address] [place] [address], [place] [address] Feb, [facility] [address] [id number] [address] [place] [address], [place] [address] Feb, [facility] [address] [id number] [address] [place] [address], [place] [address] Feb, [facility] [address] [id number] [address] [place] [address], [place] [address] Feb, [facility] [address] [id number] [address] [place] [address], [place] [address] Feb, [facility] [address] [id number] [address] [place] [address], [place] [address] Feb, [facility] [address] [id number] [address] [place] [address], [place] [address] January, [facility] [address] [id number] [address] [place] [address], [place] [address] January, [facility] [address] [id number] [address] [place] [address], [place] [address] January, [facility] [address] [id number] [address] [place] [address], [place] [address] January, [facility] [address] [id number] [address] [place] [address], [place] [address] January, [facility] [address] [id number] [address] [place] [address], [place] [address] January, [facility] [address] [id number] [address] [place] [address], [place] [address] January, [facility] [address] [id number] [address] [place] [address], [place] [address] January, [facility] [address] [id number] [address] [place] [address], [place] [address] January, [facility] [address] [id number] [address] [place] [address], [place] [address] January, [facility] [address] [id number] [address] [place] [address], [place] [address] January, [facility] [address] [id number] [address] [place] [address], [place] [address] January, [facility] [address] [id number] [address] [place] [address], [place] [address] January, [facility] [address] [id number] [address] [place] [address], [place] [address] January, [facility] [address] [id number] [address] [place] [address], [place] [address] January, [facility] [address] [id number] [address] [place] [address], [place] [address] January, [facility] [address] [id number] [address] [place] [address], [place] [address] January, [facility] [address] [id number] [address] [place] [address], [place] [address] January, [facility] [address] [id number] [address] [place] [address], [place] [address] January, [facility] [address] [id number] [address] [place] [address], [place] [address] January, [facility] [address] [id number] [address] [place] [address], [place] [address] January, [facility] [address] [id number] [address] [place] [address], [place] [address] January, [facility] [address] [id number] [address] [place] [address], [place] [address] January, [facility] [address] [id number] [address] [place] [address], [place] [address] Dec, [facility] [address] [id number] [address] [place] [address], [place] [address] Dec, [facility] [address] [id number] [address] [place] [address], [place] [address] Dec, [facility] [address] [id number] [address] [place] [address], [place] [address] Dec, [facility] [address] [id number] [address] [place] [address], [place] [address] Dec, [facility] [address] [id number] [address] [place] [address], [place] [address] Nov, [facility] [address] [id number] [address] [place] [address], [place] [address] Oct, [facility] [address] [id number] [address] [place] [address], [place] [address] Oct, [facility] [address] [id number] [address] [place] [address], [place] [address] Oct, [facility] [address] [id number] [address] [place] [address], [place] [address] Oct, [facility] [address] [id number] [address] [place] [address], [place] [address] Oct, [facility] [address] [id number] [address] [place] [address], [place] [address] Sep, [facility] [address] [id number] [address] [place] [address], [place] [address] Sep, [facility] [address] [id number] [address] [place] [address], [place] [address] Sep, [facility] [address] [id number] [address] [place] [address], [place] [address] Aug, [facility] [address] [id number] [address] [place] [address], [place] [address] Aug, [facility] [address] [id number] [address] [place] [address], [place] [address] Aug, [facility] [address] [id number] [address] [place] [address], [place] [address] Aug, [facility] [address] [id number] [address] [place] [address], [place] [address] Jul, [facility] [address] [id number] [address] [place] [address], [place] [address] Jul, [facility] [address] [id number] [address] [place] [address], [place] [address] Jul, [facility] [address] [id number] [address] [place] [address], [place] [address] Jul, [facility] [address] [id number] [address] [place] [address], [place] [address] Jul, [facility] [address] [id number] [address] [place] [address], [place] [address] Jul, [facility] [address] [id number] [address] [place] [address], [place] [address] Jun, [facility] [address] [id number] [address] [place] [address], [place] [address] Jun, [facility] [address] [id number] [address] [place] [address], [place] [address] Jun, [facility] [address] [id number] [address] [place] [address], [place] [address] Jun, [facility] [address] [address] [id number] [address] [place] [address], [place] [address] Jun, [facility] [address] [id number] [address] [place] [address], [place] [address] Jun, [facility] [address] [id number] [address] [place] [address], [place] [address] Jun, [facility] [address] [id number] [address] [place] [address], [place] [address] Jun, [facility] [address] [id number] [address] [place] [address], [place] [address] Jun, [facility] [address] [id number] [address] [place] [address], [place] [address] Jun, [facility] [address] [id number] [address] [place] [address], [place] [address] 17 May, 2012 [facility] [address] [id number] [address] [place] [address], [place] [address] 08 May, 2012 [facility] [address] [id number] [address] [place] [address], [place] [address] 06 May, 2012 [facility] [address] [id number] [address] [place] [address], [place] [address] 30 Apr, 2012 [facility] [address] [id number] [address] [place] [address], [place] [address] 29 Apr, 2012 [facility] [address] [id number] [address] [place] [address], [place] [address] 14 Apr, 2012 [facility] [address] [id number] [address] [place] [address], [place] [address] Apr, [facility] [address] [id number] [address] [place] [address], [place] [address] Apr, [facility] [address] [id number] [address] [place] [id number] Apr, [facility] [address] [id number] [address] [place] [address], [place] [address] Apr, [facility] [address] [id number] [address] [place] [address], [place] [address] Apr, [facility] [address] [id number] [address] [place] [address], [place] [address] Apr, [facility] [address] [id number] [address] [place] [address], [place] [address] Mar, [facility] [address] [id number] [address] [place] [address], [place] [address] Mar, [facility] [address] [id number] [address] [place] [address], [place] [address] Mar, [facility] [address] [id number] [address] [place] [address], [place] [address] Mar, [facility] [address] [id number] [address] [place] [address], [place] [address] Feb, [facility] [address] [id number] [address] [place] [address], [place] [address] Feb, [facility] [address] [id number] [address] [place] [address], [place] [address] Feb, [facility] [address] [id number] [address] [place] [address], [place] [address] January, [facility] [address] [id number] [address] [place] [address], [place] [address] January, [facility] [address] [id number] [address] [place] [address], [place] [address] January, [facility] [address] [id number] [address] [place] [address], [place] [address] January, [facility] [address] [id number] [address] [place] [address], [place] [address] January, [facility] [address] [id number] [address] [place] [address], [place] [address] 30 Dec, 2011 [facility] [address] [id number] [address] [place] [address], [place] [address] Dec, [facility] [address] [id number] [address] [place] [address], [place] [address] 16 Dec, 2011 [facility] [address] [id number] [address] [place] [address], [place] [address] Oct, [facility] [address] [id number] [address] [place] [address], [place] [address] Oct, [facility] [address] [id number] [address] [place] [address], [place] [address] Oct, [facility] [address] [id number] [address] [place] [address], [place] [address] Sep, [facility] [address] [id number] [address] [place] [address], [place] [address] Sep, [facility] [address] [id number] [address] [place] [address], [place] [address] Aug, [facility] [address] [id number] [address] [place] [address], [place] [address] Jul, [facility] [address] [id number] [address] [place] [address], [place] [address] Jul, [facility] [address] [id number] [address] [place] [address], [place] [address] Mar, [facility] [address] [id number] [address] [place] [address], [place] [address] 10 Aug, 2010 [facility] [address] [id number] [address] [place] [address], [place] [address] 10 Jul, 2010 [facility] [address] [id number] [address] [place] [address], [place] [address] 04 Jul, 2010 [facility] [address] [id number] [address] [place] [address], [place] [address] 04 Jul, 2010 [facility] [address] [id number] [address] [place] [address], [place] [address] 04 Jul, 2010 [facility] [address] [id number] [address] [place] [id number] 14 Jun, 2010 [facility] [address] [id number] [address] [place] [address], [place] [address] 12 Jun, 2010 [facility] [address] [id number] [address] [place] [id number] 17 Apr, 2010 [facility] [address] [id number] [address] [place] [address], [place] [address] Aug, [facility] [address] [id number] [address] [place] [id number] Jul, [facility] [address] [id number] [address] [place] [id number] Jul, [facility] [address] [id number] [address] [place] [id number] Jul, [facility] [address] [id number] [address] [place] [id number] 23 Jun, 2009 [facility] [address] [id number] [address] [place] [id number] 10 May, 2009 [facility] [address] [id number] [address] [place] [id number] 14 Dec, 2008 [facility] [address] [id number] [address] [place] [id number] Nov, [facility] [address] [id number] [address] [place] [id number] 10 Oct, 2008 [facility] [address] [id number] [address] [place] [id number] 05 Aug, 2008 [facility] [address] [id number] [address] [place] [id number] Aug, [facility] [address] [id number] [address] [place] [address] 28 Jun, 2008 IMMUNIZATIONS No Known Immunizations SOCIAL HISTORY Never Assessed REASON FOR VISIT PLAN OF CARE VITAL SIGNS MEDICATIONS Unknown Medications RESULTS No Results PROCEDURES Procedure Date Ordered Result Body Site US EXAM, PELVIC, COMPLETE May 18, 2013 INSTRUCTIONS MEDICATIONS ADMINISTERED No Known Medications [...] x 3 day s 04/2012 Hospitalization History [facility] [place]- Right wrist injury 03/29/2018
--- OUTSIDE RECORDS SUMMARY | 2020-04-09 00:10 | XMS REPORT ---
Author Author Kateryna Turner Doctor Organization [facility] Address Unknown Phone Unavailable Care Team Providers Care Workplace Relations Adviser Name Role Phone Migration, Doctor Unavailable Unavailable PROBLEMS Type Condition ICD9-CM Code [id number] Code Onset Dates Condition S tatus SNOMED Code Problem Irregular menses N92.6 Active 801 22354 Problem Migraine with aura and without status migrainosu s, not intractable G43.109 Active 6649458 Problem Uncontrolled type 2 diabetes mellitus with hyperglycemia E11.65 Active 622062660 Problem Morbid obesity due to excess calories E66.01 Active 312985625 Problem RLS (restless legs syndrome) G25.81 A ctive 77739268 Problem Morbid obesity E66.01 Active 73064 6002 ALLERGIES No Information ENCOUNTERS Encounter Location Date Diagnosis [facility] [address] [facility] [id number] [address] [place] [phone] January, [facility] [address] [facility] [id number] [address] [place] [id number] Dec, [facility] [address] [facility] [id number] [address] [place] [id number] Dec, [facility] [address] [facility] [id number] [address] [place] [id number] Dec, Uncontrolled type 2 diabetes mellitus with hyperglycemia E11.65 [facility] [address] [facility] [id number] [address] [place] [id number] 07 Dec, 2019 [facility] [address] [id number] [address] [place] [id number] Dec, [facility] [address] [facility] [id number] [address] [place] [phone] Dec, [facility] [address] [facility] [id number] [address] [place] [phone] Nov, [facility] [address] [id number] [address] [place] [phone] 28 Nov, 2019 [facility] [address] [id number] [address] [place] [id number] 03 Nov, 2019 [facility] [address] [facility] [id number] [address] [place] [id number] 02 Nov, 2019 RLS (restless legs syndrome) G25.81 [facility] [address] [id number] [address] [place] [id number] 15 Oct, 2019 [facility] [address] [facility] [id number] [address] [place] [phone] 09 Oct, 2019 Influenza J11.1 [facility] [address] [facility] [id number] [address] [place] [id number] 16 Sep, 2019 [facility] [address] [facility] [id number] [address] [place] [phone] 14 Sep, 2019 [facility] [address] [facility] [id number] [address] [place] [phone] 14 Sep, 2019 [facility] [address] [id number] [address] [place] [phone] 13 Sep, 2019 [facility] [address] [facility] [id number] [address] [place] [phone] 10 Sep, 2019 Pneumonia of left lower lobe due to infectious organism J18.9 and Migraine with aura and without status migrainosus, not intractable G43.109 [facility] [address] [facility] [id number] [address] [place] [id number] 10 Sep, 2019 [facility] [address] [facility] [id number] [address] [place] [id number] 10 Sep, 2019 [facility] [address] [facility] [id number] [address] [place] [id number] 08 Sep, 2019 [facility] [address] [facility] [id number] [address] [place] [id number] 08 Sep, 2019 [facility] [address] [id number] [address] [place] [id number] 08 Sep, 2019 Pneumonia of left lower lobe due to infectious organism J18.9 and Migraine with aura and without status migrainosus, not intractable G43.109 [facility] [address] [id number] [address] [place] [id number] Aug, Irregular menses N92.6 ; Wel l woman exam Z01.419 ; Pelvic cramping R10.2 and Left breast lump N63.20 [facility] [address] [id number] [address] [place] [id number] Aug, [facility] [address] [facility] [id number] [address] [place] [id number] 17 Aug, 2019 Well woman exam Z01.419 ; Le ft breast lump N63.20 ; Irregular menses N92.6 ; Encounter for immunization Z23 ; Pelvic cramping R10.2 and Screening for cervical cancer Z12.4 [facility] [address] [facility] [id number] [address] [place] [id number] Aug, [facility] [address] [id number] [address] [place] [id number] Aug, [facility] [address] [facility] [id number] [address] [place] [id number] Aug, [facility] [address] [id number] [address] [place] [id number] Jul, [facility] [address] [facility] [id number] [address] [place] [id number] Jun, [facility] [address] [id number] [address] [place] [id number] Jun, [facility] [address] [facility] [id number] [address] [place] [id number] 14 Jun, 2019 [facility] [address] [facility] [id number] [address] [place] [id number] Jun, BMI 50.0-59.9, adult Z68.43 [facility] [address] [place] [id number] [address] [place] [id number] Jun, [facility] [address] [place] [id number] [place] [phone] May, Acute non-recurrent sinusiti s, unspecified location J01.90 ; Diarrhea, unspecified R19.7 ; Vomiting, unspecified R11.10 and Morbid obesity E66.01 [place] [address] [id number] Apr, [place] [address] [address] Apr, Anemia due to other cause, n ot classified D64.89 and D-dimer, elevated R79.89 [place] [address] [address] Apr, [place] [address] [address] Apr, [place] [address] [address] Mar, Anemia due to other cause, n ot classified D64.89 and D-dimer, elevated R79.89 [place] [address] [address] Mar, Leg edema, right R60.0 ; Hig h risk medication use Z79.899 and Morbid obesity E66.01 [facility] [address] [place] [id number] [address] [place] [id number] Mar, BMI 50.0-59.9, adult Z68.43 [place] [address] [address] Mar, [place] [address] [address] January, Uncontrolled type 2 diabetes mellitus with hyperglycemia E11.65 ; RLS (restless legs syndrome) G25.81 and Morbid obesity E66.01 [facility] [address] [id number] [address] [place] [id number] 15 Oct, 2018 Lipoma of right lower extrem ity D17.23 [facility] [address] [id number] [address] [place] [id number] 05 Oct, 2018 Lipoma of right lower extrem ity D17.23 [facility] [address] [id number] [address] [place] [phone] Sep, [facility] [address] [id number] [address] [place] [id number] Sep, [facility] [address] [id number] [address] [place] [id number] Sep, [facility] [address] [facility] [id number] [address] [place] [phone] Sep, [facility] [address] [facility] [id number] [address] [place] [id number] Sep, [facility] [address] [facility] [id number] [address] [place] [id number] Aug, Uncontrolled type 2 diabetes mellitus with hyperglycemia E11.65 ; Morbid obesity due to excess calories E66.01 ; Lipoma of torso D17.1 and BMI 50.0-59.9, adult Z68.43 [facility] [address] [facility] [id number] [address] [place] [id number] Jun, Encounter for immunization Z 23 [facility] [address] [id number] [address] [place] [id number] Jul, [facility] [address] [facility] [id number] [address] [place] [phone] Jun, Encounter for immunization Z 23 [facility] [address] [id number] [address] [place] [id number] May, [facility] [address] [facility] [id number] [address] [place] [phone] Jun, Encounter for immunization Z 23 [facility] [address] [id number] [address] [place] [address], [place] [address] 29 May, 2015 [facility] [address] [id number] [address] [place] [address], [place] [address] May, [facility] [address] [id number] [address] [place] [address], [place] [address] Apr, [facility] [address] [id number] [address] [place] [address], [place] [address] Feb, [facility] [address] [id number] [address] [place] [address], [place] [address] Feb, [facility] [address] [id number] [address] [place] [address], [place] [address] Feb, [facility] [address] [id number] [address] [place] [address], [place] [address] January, [facility] [address] [id number] [address] [place] [address], [place] [address] January, [facility] [address] [id number] [address] [place] [address], [place] [address] Dec, [facility] [address] [id number] [address] [place] [address], [place] [address] Dec, [facility] [address] [id number] [address] [place] [phone] Nov, [facility] [address] [id number] [address] [place] [phone] Nov, [facility] [address] [id number] [address] [place] [phone] Nov, [facility] [address] [id number] [address] [place] [phone] Nov, [facility] [address] [id number] [address] [place] [address], [place] [address] Nov, [facility] [address] [id number] [address] [place] [address], [place] [address] Nov, [facility] [address] [id number] [address] [place] [address], [place] [address] Nov, [facility] [address] [id number] [address] [place] [address], [place] [address] 18 Oct, 2014 [facility] [address] [id number] [address] [place] [address], [place] [address] Oct, [facility] [address] [id number] [address] [place] [address], [place] [address] Oct, [facility] [address] [id number] [address] [place] [address], [place] [address] Oct, [facility] [address] [id number] [address] [place] [address], [place] [address] Oct, [facility] [address] [id number] [address] [place] [address], [place] [address] Sep, [facility] [address] [id number] [address] [place] [address], [place] [address] Sep, [facility] [address] [id number] [address] [place] [address], [place] [address] Sep, [facility] [address] [id number] [address] [place] [address], [place] [address] Sep, [facility] [address] [id number] [address] [place] [address], [place] [address] Sep, [facility] [address] [id number] [address] [place] [address], [place] [address] Sep, [facility] [address] [id number] [address] [place] [address], [place] [address] Sep, [facility] [address] [id number] [address] [place] [address], [place] [address] Sep, [facility] [address] [id number] [address] [place] [address], [place] [address] Sep, [facility] [address] [id number] [address] [place] [address], [place] [address] Sep, [facility] [address] [id number] [address] [place] [address], [place] [address] Aug, [facility] [address] [id number] [address] [place] [address], [place] [address] Aug, [facility] [address] [id number] [address] [place] [address], [place] [address] Aug, [facility] [address] [id number] [address] [place] [address], [place] [address] Aug, [facility] [address] [id number] [address] [place] [address], [place] [address] Aug, [facility] [address] [id number] [address] [place] [address], [place] [address] Aug, [facility] [address] [id number] [address] [place] [address], [place] [address] Aug, [facility] [address] [id number] [address] [place] [address], [place] [address] Aug, [facility] [address] [id number] [address] [place] [address], [place] [address] Aug, [facility] [address] [id number] [address] [place] [address], [place] [address] Aug, [facility] [address] [id number] [address] [place] [address], [place] [address] Aug, [facility] [address] [id number] [address] [place] [address], [place] [address] Aug, [facility] [address] [id number] [address] [place] [address], [place] [address] Aug, [facility] [address] [id number] [address] [place] [address], [place] [address] Aug, [facility] [address] [id number] [address] [place] [address], [place] [address] 17 Aug, 2014 [facility] [address] [id number] [address] [place] [address], [place] [address] 17 Aug, 2014 [facility] [address] [id number] [address] [place] [address], [place] [address] 16 Aug, 2014 [facility] [address] [id number] [address] [place] [address], [place] [address] 16 Aug, 2014 [facility] [address] [id number] [address] [place] [address], [place] [address] Aug, [facility] [address] [id number] [address] [place] [address], [place] [address] Aug, [facility] [address] [id number] [address] [place] [address], [place] [address] Aug, [facility] [address] [id number] [address] [place] [address], [place] [address] Aug, [facility] [address] [id number] [address] [place] [address], [place] [address] 05 Aug, 2014 [facility] [address] [id number] [address] [place] [address], [place] [address] 05 Aug, 2014 [facility] [address] [id number] [address] [place] [address], [place] [address] Jul, [facility] [address] [id number] [address] [place] [address], [place] [address] Jul, [facility] [address] [id number] [address] [place] [address], [place] [address] Jun, [facility] [address] [id number] [address] [place] [address], [place] [address] Jun, [facility] [address] [id number] [address] [place] [address], [place] [address] Jun, [facility] [address] [id number] [address] [place] [address], [place] [address] Jun, [facility] [address] [id number] [address] [place] [address], [place] [address] 15 Jun, 2014 [facility] [address] [id number] [address] [place] [address], [place] [address] 15 Jun, 2014 [facility] [address] [id number] [address] [place] [address], [place] [address] 14 Jun, 2014 [facility] [address] [id number] [address] [place] [address], [place] [address] 14 Jun, 2014 [facility] [address] [id number] [address] [place] [address], [place] [address] 13 Jun, 2014 [facility] [address] [id number] [address] [place] [address], [place] [address] 13 Jun, 2014 [facility] [address] [id number] [address] [place] [address], [place] [address] 13 Jun, 2014 [facility] [address] [id number] [address] [place] [address], [place] [address] Jun, [facility] [address] [id number] [address] [place] [address], [place] [address] 06 Jun, 2014 [facility] [address] [id number] [address] [place] [address], [place] [address] 06 Jun, 2014 [facility] [address] [id number] [address] [place] [address] 26 May, 2013 [facility] [address] [id number] [address] [place] [address] 26 May, 2013 [facility] [address] [id number] [address] [place] [address], [place] [address] 22 May, 2013 [facility] [address] [id number] [address] [place] [address], [place] [address] 22 May, 2013 [facility] [address] [id number] [address] [place] [address], [place] [address] 04 May, 2013 [facility] [address] [id number] [address] [place] [address] May, [facility] [address] [id number] [address] [place] [address], [place] [address] May, [facility] [address] [id number] [address] [place] [address], [place] [address] May, [facility] [address] [id number] [address] [place] [address], [place] [address] Apr, [facility] [address] [id number] [address] [place] [address], [place] [address] Apr, [facility] [address] [id number] [address] [place] [address], [place] [address] Apr, [facility] [address] [id number] [address] [place] [address], [place] [address] Apr, [facility] [address] [id number] [address] [place] [address], [place] [address] Apr, [facility] [address] [id number] [address] [place] [address], [place] [address] Apr, [facility] [address] [id number] [address] [place] [address], [place] [address] Apr, [facility] [address] [id number] [address] [place] [address], [place] [address] Apr, [facility] [address] [id number] [address] [place] [address], [place] [address] Apr, [facility] [address] [id number] [address] [place] [address], [place] [address] Mar, [facility] [address] [id number] [address] [place] [address], [place] [address] Mar, [facility] [address] [id number] [address] [place] [address], [place] [address] Mar, [facility] [address] [id number] [address] [place] [address], [place] [address] Feb, [facility] [address] [id number] [address] [place] [address] 30 Feb, 2014 [facility] [address] [id number] [address] [place] [address] Feb, [facility] [address] [id number] [address] [place] [address] Feb, [facility] [address] [id number] [address] [place] [address] Feb, [facility] [address] [id number] [address] [place] [address] 17 Feb, 2014 [facility] [address] [id number] [address] [place] [address], [place] [address] Feb, [facility] [address] [id number] [address] [place] [address], [place] [address] Feb, [facility] [address] [id number] [address] [place] [address], [place] [address] Feb, [facility] [address] [id number] [address] [place] [address], [place] [address] Feb, [facility] [address] [id number] [address] [place] [address], [place] [address] Feb, [facility] [address] [id number] [address] [place] [address], [place] [address] Feb, [facility] [address] [id number] [address] [place] [address], [place] [address] Feb, [facility] [address] [id number] [address] [place] [address], [place] [address] Feb, [facility] [address] [id number] [address] [place] [address], [place] [address] Feb, [facility] [address] [id number] [address] [place] [address], [place] [address] Feb, [facility] [address] [id number] [address] [place] [address], [place] [address] January, [facility] [address] [id number] [address] [place] [address] January, [facility] [address] [id number] [address] [place] [address], [place] [address] January, [facility] [address] [id number] [address] [place] [address], [place] [address] January, [facility] [address] [id number] [address] [place] [address], [place] [address] January, [facility] [address] [id number] [address] [place] [address], [place] [address] January, [facility] [address] [id number] [address] [place] [address], [place] [address] January, [facility] [address] [id number] [address] [place] [address], [place] [address] January, [facility] [address] [id number] [address] [place] [address], [place] [address] January, [facility] [address] [id number] [address] [place] [address], [place] [address] January, [facility] [address] [id number] [address] [place] [address], [place] [address] January, [facility] [address] [id number] [address] [place] [address], [place] [address] January, [facility] [address] [id number] [address] [place] [address], [place] [address] January, [facility] [address] [id number] [address] [place] [address], [place] [address] January, [facility] [address] [id number] [address] [place] [address], [place] [address] January, [facility] [address] [id number] [address] [place] [address], [place] [address] January, [facility] [address] [id number] [address] [place] [address], [place] [address] January, [facility] [address] [id number] [address] [place] [address], [place] [address] January, [facility] [address] [address] [id number] [address] [place] [address], [place] [address] January, [facility] [address] [id number] [address] [place] [address], [place] [address] January, [facility] [address] [id number] [address] [place] [address], [place] [address] January, [facility] [address] [id number] [address] [place] [address], [place] [address] January, [facility] [address] [id number] [address] [place] [address], [place] [address] January, [facility] [address] [id number] [address] [place] [address], [place] [address] January, [facility] [address] [id number] [address] [place] [address], [place] [address] January, [facility] [address] [id number] [address] [place] [address], [place] [address] January, [facility] [address] [id number] [address] [place] [address], [place] [address] Dec, [facility] [address] [id number] [address] [place] [address], [place] [address] Dec, [facility] [address] [id number] [address] [place] [address], [place] [address] Dec, [facility] [address] [id number] [address] [place] [address], [place] [address] Dec, [facility] [address] [id number] [address] [place] [address], [place] [address] Dec, [facility] [address] [id number] [address] [place] [address], [place] [address] Dec, [facility] [address] [id number] [address] [place] [address] Dec, [facility] [address] [id number] [address] [place] [address], [place] [address] Dec, [facility] [address] [id number] [address] [place] [address], [place] [address] Dec, [facility] [address] [id number] [address] [place] [address], [place] [address] Dec, [facility] [address] [id number] [address] [place] [address], [place] [address] Dec, [facility] [address] [id number] [address] [place] [address], [place] [address] Dec, [facility] [address] [id number] [address] [place] [address], [place] [address] Dec, [facility] [address] [id number] [address] [place] [address], [place] [address] Dec, [facility] [address] [id number] [address] [place] [address], [place] [address] Dec, [facility] [address] [id number] [address] [place] [address], [place] [address] Dec, [facility] [address] [id number] [address] [place] [address], [place] [address] Dec, [facility] [address] [id number] [address] [place] [address], [place] [address] Dec, [facility] [address] [id number] [address] [place] [address], [place] [address] Dec, [facility] [address] [id number] [address] [place] [address], [place] [address] Dec, [facility] [address] [id number] [address] [place] [address], [place] [address] Dec, [facility] [address] [id number] [address] [place] [address], [place] [address] 07 Dec, 2013 [facility] [address] [id number] [address] [place] [address] 31 Nov, 2013 [facility] [address] [id number] [address] [place] [address], [place] [address] 31 Nov, 2013 [facility] [address] [id number] [address] [place] [address] Nov, [facility] [address] [id number] [address] [place] [address], [place] [address] Nov, [facility] [address] [id number] [address] [place] [place] [address] 24 Nov, 2013 [facility] [address] [id number] [address] [place] [address], [place] [address] 24 Nov, 2013 [facility] [address] [id number] [address] [place] [address], [place] [address] Nov, [facility] [address] [id number] [address] [place] [address], [place] [address] 22 Nov, 2013 [facility] [address] [id number] [address] [place] [address], [place] [address] 18 Nov, 2013 [facility] [address] [id number] [address] [place] [address], [place] [address] 18 Nov, 2013 [facility] [address] [id number] [address] [place] [address], [place] [address] 18 Nov, 2013 [facility] [address] [id number] [address] [place] [address], [place] [address] 18 Nov, 2013 [facility] [address] [id number] [address] [place] [address], [place] [address] 14 Nov, 2013 [facility] [address] [id number] [address] [place] [address], [place] [address] 14 Nov, 2013 [facility] [address] [id number] [address] [place] [address], [place] [address] 06 Nov, 2013 [facility] [address] [id number] [address] [place] [address], [place] [address] Nov, [facility] [address] [id number] [address] [place] [address], [place] [address] Oct, [facility] [address] [id number] [address] [place] [address], [place] [address] Oct, [facility] [address] [id number] [address] [place] [address], [place] [address] Oct, [facility] [address] [id number] [address] [place] [address], [place] [address] Oct, [facility] [address] [id number] [address] [place] [address], [place] [address] Oct, [facility] [address] [id number] [address] [place] [address], [place] [address] Oct, [facility] [address] [id number] [address] [place] [address], [place] [address] Oct, [facility] [address] [id number] [address] [place] [address], [place] [address] Oct, [facility] [address] [id number] [address] [place] [address], [place] [address] Oct, [facility] [address] [id number] [address] [place] [address], [place] [address] Oct, [facility] [address] [id number] [address] [place] [address] Oct, [facility] [address] [id number] [address] [place] [address], [place] [address] Oct, [facility] [address] [id number] [address] [place] [address], [place] [address] Oct, [facility] [address] [id number] [address] [place] [address], [place] [address] Oct, [facility] [address] [id number] [address] [place] [address] Oct, [facility] [address] [id number] [address] [place] [address], [place] [address] Sep, [facility] [address] [id number] [address] [place] [address], [place] [address] Sep, [facility] [address] [id number] [address] [place] [address], [place] [address] Sep, [facility] [address] [id number] [address] [place] [address], [place] [address] Sep, [facility] [address] [id number] [address] [place] [address], [place] [address] Sep, [facility] [address] [id number] [address] [place] [address], [place] [address] Sep, [facility] [address] [id number] [address] [place] [address], [place] [address] Sep, [facility] [address] [id number] [address] [place] [address], [place] [address] Sep, [facility] [address] [id number] [address] [place] [address], [place] [address] Sep, [facility] [address] [id number] [address] [place] [address], [place] [address] Sep, [facility] [address] [id number] [address] [place] [address], [place] [address] Sep, [facility] [address] [id number] [address] [place] [address], [place] [address] Sep, [facility] [address] [id number] [address] [place] [address], [place] [address] Sep, [facility] [address] [id number] [address] [place] [address], [place] [address] Aug, [facility] [address] [id number] [address] [place] [address], [place] [address] Aug, [facility] [address] [id number] [address] [place] [address], [place] [address] 24 Aug, 2013 [facility] [address] [id number] [address] [place] [address], [place] [address] 24 Aug, 2013 [facility] [address] [id number] [address] [place] [address], [place] [address] 17 Aug, 2013 [facility] [address] [id number] [address] [place] [address], [place] [address] 17 Aug, 2013 [facility] [address] [id number] [address] [place] [address], [place] [address] 16 Aug, 2013 [facility] [address] [id number] [address] [place] [address], [place] [address] 16 Aug, 2013 [facility] [address] [id number] [address] [place] [address], [place] [address] Aug, [facility] [address] [id number] [address] [place] [address], [place] [address] Aug, [facility] [address] [id number] [address] [place] [address], [place] [address] Aug, [facility] [address] [id number] [address] [place] [address], [place] [address] Aug, [facility] [address] [id number] [address] [place] [address], [place] [address] Aug, [facility] [address] [id number] [address] [place] [address], [place] [address] Aug, [facility] [address] [id number] [address] [place] [address], [place] [address] Jul, [facility] [address] [id number] [address] [place] [address], [place] [address] Jul, [facility] [address] [id number] [address] [place] [address], [place] [address] 18 Jul, 2013 [facility] [address] [id number] [address] [place] [address], [place] [address] 18 Jul, 2013 [facility] [address] [id number] [address] [place] [address], [place] [address] 14 Jul, 2013 [facility] [address] [id number] [address] [place] [address], [place] [address] 14 Jul, 2013 [facility] [address] [id number] [address] [place] [address], [place] [address] 14 Jul, 2013 [facility] [address] [id number] [address] [place] [address] 14 Jul, 2013 [facility] [address] [id number] [address] [place] [address], [place] [address] 07 Jul, 2013 [facility] [address] [id number] [address] [place] [address] 07 Jul, 2013 [facility] [address] [id number] [address] [place] [address], [place] [address] 06 Jul, 2013 [facility] [address] [id number] [address] [place] [address] 06 Jul, 2013 [facility] [address] [id number] [address] [place] [address] 05 Jul, 2013 [facility] [address] [id number] [address] [place] [address] 05 Jul, 2013 [facility] [address] [id number] [address] [place] [address] 23 Jun, 2013 [facility] [address] [id number] [address] [place] [address] 23 Jun, 2013 [facility] [address] [id number] [address] [place] [id number] 15 Jun, 2013 [facility] [address] [id number] [address] [place] [address] 15 Jun, 2013 [facility] [address] [id number] [address] [place] [address] 14 Jun, 2013 [facility] [address] [id number] [facility] [place] [address] 24 Sep, 2012 [facility] [address] [id number] [address] [place] [address], [place] [address] 20 Sep, 2012 [facility] [address] [id number] [address] [place] [address], [place] [address] 20 Sep, 2012 [facility] [address] [id number] [address] [place] [address], [place] [address] 20 Sep, 2012 [facility] [address] [id number] [address] [place] [address], [place] [address] 19 Sep, 2012 [facility] [address] [id number] [address] [place] [address], [place] [address] 13 May, 2012 [facility] [address] [id number] [address] [place] [address], [place] [address] 12 May, 2012 [facility] [address] [id number] [address] [place] [address], [place] [address] 12 May, 2012 [facility] [address] [id number] [address] [place] [address], [place] [address] 11 Sep, 2012 [facility] [address] [id number] [address] [place] [address], [place] [address] 11 May, 2012 [facility] [address] [id number] [address] [place] [address], [place] [address] 11 Sep, 2012 [facility] [address] [id number] [address] [place] [address], [place] [address] 09 Sep, 2012 [facility] [address] [id number] [address] [place] [address], [place] [address] 05 Sep, 2012 [facility] [address] [id number] [address] [place] [address], [place] [address] 04 Sep, 2012 [facility] [address] [id number] [address] [place] [address], [place] [address] 03 Sep, 2012 [facility] [address] [id number] [address] [place] [address], [place] [address] Apr, [facility] [address] [id number] [address] [place] [address], [place] [address] Apr, [facility] [address] [id number] [address] [place] [address], [place] [address] Apr, [facility] [address] [id number] [address] [place] [address], [place] [address] Apr, [facility] [address] [id number] [address] [place] [address], [place] [address] Apr, [facility] [address] [id number] [address] [place] [address], [place] [address] Apr, [facility] [address] [id number] [address] [place] [address], [place] [address] Apr, [facility] [address] [id number] [address] [place] [address], [place] [address] Apr, [facility] [address] [id number] [address] [place] [address], [place] [address] Apr, [facility] [address] [id number] [address] [place] [address], [place] [address] Mar, [facility] [address] [id number] [address] [place] [address], [place] [address] Mar, [facility] [address] [id number] [address] [place] [address], [place] [address] Mar, [facility] [address] [id number] [address] [place] [address], [place] [address] Mar, [facility] [address] [id number] [address] [place] [address], [place] [address] Mar, [facility] [address] [id number] [address] [place] [address], [place] [address] Mar, [facility] [address] [id number] [address] [place] [address], [place] [address] Mar, [facility] [address] [id number] [address] [place] [address], [place] [address] Mar, [facility] [address] [id number] [address] [place] [address], [place] [address] Mar, [facility] [address] [id number] [address] [place] [address], [place] [address] Mar, [facility] [address] [id number] [address] [place] [address], [place] [address] Mar, [facility] [address] [id number] [address] [place] [address], [place] [address] Feb, [facility] [address] [id number] [address] [place] [address], [place] [address] Feb, [facility] [address] [id number] [address] [place] [address], [place] [address] Feb, [facility] [address] [id number] [address] [place] [address], [place] [address] Feb, [facility] [address] [id number] [address] [place] [address], [place] [address] Feb, [facility] [address] [id number] [address] [place] [address], [place] [address] Feb, [facility] [address] [id number] [address] [place] [address], [place] [address] Feb, [facility] [address] [id number] [address] [place] [address], [place] [address] Feb, [facility] [address] [id number] [address] [place] [address], [place] [address] Feb, [facility] [address] [id number] [address] [place] [address], [place] [address] January, [facility] [address] [id number] [address] [place] [address], [place] [address] January, [facility] [address] [id number] [address] [place] [address], [place] [address] January, [facility] [address] [id number] [address] [place] [address], [place] [address] January, [facility] [address] [id number] [address] [place] [address], [place] [address] January, [facility] [address] [id number] [address] [place] [address], [place] [address] January, [facility] [address] [id number] [address] [place] [address], [place] [address] January, [facility] [address] [id number] [address] [place] [address], [place] [address] January, [facility] [address] [id number] [address] [place] [address], [place] [address] January, [facility] [address] [id number] [address] [place] [address], [place] [address] January, [facility] [address] [id number] [address] [place] [address], [place] [address] January, [facility] [address] [id number] [address] [place] [address], [place] [address] January, [facility] [address] [id number] [address] [place] [address], [place] [address] January, [facility] [address] [id number] [address] [place] [address], [place] [address] January, [facility] [address] [id number] [address] [place] [address], [place] [address] January, [facility] [address] [id number] [address] [place] [address], [place] [address] January, [facility] [address] [id number] [address] [place] [address], [place] [address] January, [facility] [address] [id number] [address] [place] [address], [place] [address] January, [facility] [address] [id number] [address] [place] [address], [place] [address] January, [facility] [address] [id number] [address] [place] [address], [place] [address] January, [facility] [address] [id number] [address] [place] [address], [place] [address] January, [facility] [address] [id number] [address] [place] [address], [place] [address] January, [facility] [address] [id number] [address] [place] [address], [place] [address] January, [facility] [address] [id number] [address] [place] [address], [place] [address] Dec, [facility] [address] [id number] [address] [place] [address], [place] [address] Dec, [facility] [address] [id number] [address] [place] [address], [place] [address] Dec, [facility] [address] [id number] [address] [place] [address], [place] [address] Dec, [facility] [address] [id number] [address] [place] [address], [place] [address] Dec, [facility] [address] [id number] [address] [place] [address], [place] [address] Nov, [facility] [address] [id number] [address] [place] [address], [place] [address] Oct, [facility] [address] [id number] [address] [place] [address], [place] [address] Oct, [facility] [address] [id number] [address] [place] [address], [place] [address] Oct, [facility] [address] [id number] [address] [place] [address], [place] [address] Oct, [facility] [address] [id number] [address] [place] [address], [place] [address] Oct, [facility] [address] [id number] [address] [place] [address], [place] [address] Sep, [facility] [address] [id number] [address] [place] [address], [place] [address] Sep, [facility] [address] [id number] [address] [place] [address], [place] [address] Sep, [facility] [address] [id number] [address] [place] [address], [place] [address] Aug, [facility] [address] [id number] [address] [place] [address], [place] [address] Aug, [facility] [address] [id number] [address] [place] [address], [place] [address] Aug, [facility] [address] [id number] [address] [place] [address], [place] [address] Aug, [facility] [address] [id number] [address] [place] [address], [place] [address] Jul, [facility] [address] [id number] [address] [place] [address], [place] [address] Jul, [facility] [address] [id number] [address] [place] [address], [place] [address] Jul, [facility] [address] [id number] [address] [place] [address], [place] [address] Jul, [facility] [address] [id number] [address] [place] [address], [place] [address] Jul, [facility] [address] [id number] [address] [place] [address], [place] [address] Jul, [facility] [address] [id number] [address] [place] [address], [place] [address] Jun, [facility] [address] [id number] [address] [place] [address], [place] [address] Jun, [facility] [address] [id number] [address] [place] [address], [place] [address] Jun, [facility] [address] [id number] [address] [place] [address], [place] [address] Jun, [facility] [address] [id number] [address] [place] [address], [place] [address] Jun, [facility] [address] [id number] [address] [place] [address], [place] [address] Jun, [facility] [address] [id number] [address] [place] [address], [place] [address] Jun, [facility] [address] [id number] [address] [place] [address], [place] [address] Jun, [facility] [address] [id number] [address] [place] [address], [place] [address] Jun, [facility] [address] [id number] [address] [place] [address], [place] [address] Jun, [facility] [address] [id number] [address] [place] [address], [place] [address] 17 May, 2012 [facility] [address] [id number] [address] [place] [address], [place] [address] 08 May, 2012 [facility] [address] [id number] [address] [place] [address], [place] [address] 06 May, 2012 [facility] [address] [id number] [address] [place] [address], [place] [address] 30 Apr, 2012 [facility] [address] [id number] [address] [place] [address], [place] [address] 29 Apr, 2012 [facility] [address] [id number] [address] [place] [address], [place] [address] 14 Apr, 2012 [facility] [address] [id number] [address] [place] [address], [place] [address] Apr, [facility] [address] [id number] [address] [place] [address], [place] [address] Apr, [facility] [address] [id number] [address] [place] [id number] Apr, [facility] [address] [id number] [address] [place] [address], [place] [address] Apr, [facility] [address] [id number] [address] [place] [address], [place] [address] Apr, [facility] [address] [id number] [address] [place] [address], [place] [address] Apr, [facility] [address] [id number] [address] [place] [address], [place] [address] Mar, [facility] [address] [id number] [address] [place] [address], [place] [address] Mar, [facility] [address] [id number] [address] [place] [address], [place] [address] Mar, [facility] [address] [id number] [address] [place] [address], [place] [address] Mar, [facility] [address] [id number] [address] [place] [address], [place] [address] Feb, [facility] [address] [id number] [address] [place] [address], [place] [address] Feb, [facility] [address] [id number] [address] [place] [address], [place] [address] Feb, [facility] [address] [id number] [address] [place] [address], [place] [address] January, [facility] [address] [id number] [address] [place] [address], [place] [address] January, [facility] [address] [id number] [address] [place] [address], [place] [address] January, [facility] [address] [id number] [address] [place] [address], [place] [address] January, [facility] [address] [id number] [address] [place] [address], [place] [address] January, [facility] [address] [id number] [address] [place] [address], [place] [address] 30 Dec, 2011 [facility] [address] [id number] [address] [place] [address], [place] [address] Dec, [facility] [address] [id number] [address] [place] [address], [place] [address] 16 Dec, 2011 [facility] [address] [id number] [address] [place] [address], [place] [address] Oct, [facility] [address] [id number] [address] [place] [address], [place] [address] Oct, [facility] [address] [id number] [address] [place] [address], [place] [address] Oct, [facility] [address] [id number] [address] [place] [address], [place] [address] Sep, [facility] [address] [id number] [address] [place] [address], [place] [address] Sep, [facility] [address] [id number] [address] [place] [address], [place] [address] Aug, [facility] [address] [id number] [address] [place] [address], [place] [address] Jul, [facility] [address] [id number] [address] [place] [address], [place] [address] Jul, [facility] [address] [id number] [address] [place] [address], [place] [address] Mar, [facility] [address] [id number] [address] [place] [address], [place] [address] 10 Aug, 2010 [facility] [address] [id number] [address] [place] [address], [place] [address] 10 Jul, 2010 [facility] [address] [id number] [address] [place] [address], [place] [address] 04 Jul, 2010 [facility] [address] [id number] [address] [place] [address], [place] [address] 04 Jul, 2010 [facility] [address] [id number] [address] [place] [address], [place] [address] 04 Jul, 2010 [facility] [address] [id number] [address] [place] [id number] 14 Jun, 2010 [facility] [address] [id number] [address] [place] [address], [place] [address] 12 Jun, 2010 [facility] [address] [id number] [address] [place] [id number] 17 Apr, 2010 [facility] [address] [id number] [address] [place] [address], [place] [address] Aug, [facility] [address] [id number] [address] [place] [id number] Jul, [facility] [address] [id number] [address] [place] [address] Jul, [facility] [address] [id number] [address] [place] [address] Jul, [facility] [address] [id number] [address] [place] [id number] 23 Jun, 2009 [facility] [address] [id number] [address] [place] [address] 10 May, 2009 [facility] [address] [id number] [address] [place] [id number] 14 Dec, 2008 [facility] [address] [id number] [address] [place] [id number] Nov, [facility] [address] [id number] [address] [place] [address] 10 Oct, 2008 [facility] [address] [id number] [address] [place] [id number] 05 Aug, 2008 [facility] [address] [id number] [address] [place] [id number] Aug, [facility] [address] [id number] [address] [place] [address] 28 Jun, 2008 IMMUNIZATIONS No Known Immunizations [...] History [facility] [place]- Right wrist injury 03/29/2018
--- OUTSIDE RECORDS SUMMARY | 2020-04-09 00:11 | XMS REPORT ---
Author Author Kateryna LAURENT Organization [facility] Address [address] [place] [address] Care Team Providers Care Log Hooker Name Role Phone YAMILETH LAURENT Unavailable PROBLEMS Type Condition ICD9-CM Code ORS87-ZY Code Onset Dates Condition S tatus SNOMED Code Problem Irregular menses N92.6 Active 801 28225 Problem Migraine with aura and without status migrainosu s, not intractable G43.109 Active 9621305 Problem Uncontrolled type 2 diabetes mellitus with hyperglycemia E11.65 Active 120218570 Problem Morbid obesity due to excess calories E66.01 Active 853181594 Problem RLS (restless legs syndrome) G25.81 A ctive 86616880 Problem Morbid obesity E66.01 Active 26619 6002 ALLERGIES No Information ENCOUNTERS Encounter Location Date Diagnosis [facility] [address] [facility] [id number] [address] [place] [phone] January, [facility] [address] [facility] [id number] [address] [place] [phone] Dec, [facility] [address] [facility] [id number] [address] [place] [phone] Dec, [facility] [address] [id number] [address] [place] [address] Dec, Uncontrolled type 2 diabetes mellitus with hyperglycemia E11.65 [facility] [address] [facility] [id number] [address] [place] [phone] Dec, [facility] [address] [facility] [id number] [address] [place] [phone] Dec, [facility] [address] [facility] [id number] [address] [place] [phone] Dec, [facility] [address] [id number] [address] [place] [phone] 30 Nov, 2019 [facility] [address] [id number] [address] [place] [phone] 28 Nov, 2019 [facility] [address] [id number] [address] [place] [phone] 03 Nov, 2019 [facility] [address] [id number] [address] [place] [phone] 02 Nov, 2019 RLS (restless legs syndrome) G25.81 [facility] [address] [id number] [address] [place] [phone] 15 Oct, 2019 [facility] [address] [facility] [id number] [address] [place] [phone] 09 Oct, [address] [facility] [address] [facility] [id number] [address] [place] [phone] 16 Sep, 2019 [facility] [address] [id number] [address] [place] [phone] 14 Sep, 2019 [facility] [address] [facility] [id number] [address] [place] [phone] 14 Sep, 2019 [facility] [address] [facility] [id number] [address] [place] [phone] 13 Sep, 2019 [facility] [address] [facility] [id number] [address] [place] [phone] 10 Sep, 2019 Pneumonia of left lower lobe due to infectious organism J18.9 and Migraine with aura and without status migrainosus, not intractable G43.109 [facility] [address] [id number] [address] [place] [phone] 10 Sep, 2019 [facility] [address] [facility] [id number] [address] [place] [phone] 10 Sep, 2019 [facility] [address] [facility] [id number] [address] [place] [phone] 08 Sep, 2019 [facility] [address] [facility] [id number] [address] [place] [phone] Sep, [facility] [address] [id number] [address] [place] [phone] Sep, Pneumonia of left lower lobe due to infectious organism J18.9 and Migraine with aura and without status migrainosus, not intractable G43.109 [facility] [address] [id number] [address] [place] [phone] Aug, Irregular menses N92.6 ; Wel l woman exam Z01.419 ; Pelvic cramping R10.2 and Left breast lump N63.20 [facility] [address] [id number] [address] [place] [address] Aug, [facility] [address] [id number] [address] [place] [address] Aug, Well woman exam Z01.419 ; Le ft breast lump N63.20 ; Irregular menses N92.6 ; Encounter for immunization Z23 ; Pelvic cramping R10.2 and Screening for cervical cancer Z12.4 [facility] [address] [id number] [address] [place] [phone] Aug, [facility] [address] [id number] [address] [place] [address] Aug, [facility] [address] [id number] [address] [place] [phone] Aug, [facility] [address] [id number] [address] [place] [phone] Jul, [facility] [address] [id number] [address] [place] [phone] Jun, [facility] [address] [id number] [address] [place] [phone] Jun, [facility] [address] [id number] [address] [place] [phone] Jun, [facility] [address] [id number] [address] [place] [phone] Jun, BMI 50.0-59.9, adult Z68.43 [facility] [address] [facility] [id number] [address] [place] [phone] Jun, [facility] [address] [facility] [id number] [address] [place] [phone] May, Acute non-recurrent sinusiti s, unspecified location J01.90 ; Diarrhea, unspecified R19.7 ; Vomiting, unspecified R11.10 and Morbid obesity E66.01 [facility] [address] [facility] [id number] [address] [place] [phone] Apr, [place] [address] [place] [id number] [place] [phone] Apr, Anemia due to other cause, n ot classified D64.89 and D-dimer, elevated R79.89 [facility] [address] [place] [id number] [address] [place] [phone] Apr, [facility] [address] [facility] [id number] [address] [place] [phone] Apr, [facility] [address] [place] [id number] [address] [place] [phone] Mar, Anemia due to other cause, n ot classified D64.89 and D-dimer, elevated R79.89 [place] [address] [place] [id number] [address] [place] [phone] Mar, Leg edema, right R60.0 ; Hig h risk medication use Z79.899 and Morbid obesity E66.01 [facility] [address] [facility] [id number] [address] [place] [phone] Mar, BMI 50.0-59.9, adult Z68.43 [facility] [address] [place] [id number] [address] [place] [phone] Mar, [facility] [address] [place] [id number] [address] [place] [phone] January, Uncontrolled type 2 diabetes mellitus with hyperglycemia E11.65 ; RLS (restless legs syndrome) G25.81 and Morbid obesity E66.01 [facility] [address] [id number] [address] [place] [phone] 15 Oct, 2018 Lipoma of right lower extrem ity D17.23 [facility] [address] [facility] [id number] [address] [place] [phone] Oct, Lipoma of right lower extrem ity D17.23 [facility] [address] [id number] [address] [place] [phone] Sep, [facility] [address] [facility] [id number] [address] [place] [phone] Sep, [facility] [address] [facility] [id number] [address] [place] [phone] Sep, [facility] [address] [facility] [id number] [address] [place] [phone] Sep, [facility] [address] [facility] [id number] [address] [place] [phone] Sep, [facility] [address] [facility] [id number] [address] [place] [phone] Aug, Uncontrolled type 2 diabetes mellitus with hyperglycemia E11.65 ; Morbid obesity due to excess calories E66.01 ; Lipoma of torso D17.1 and BMI 50.0-59.9, adult Z68.43 [facility] [address] [facility] [id number] [address] [place] [phone] Jun, Encounter for immunization Z 23 [facility] [address] [facility] [id number] [address] [place] [phone] Jul, [place] [address] [place] [id number] [address] [place] [phone] Jun, Encounter for immunization Z 23 [facility] [address] [facility] [id number] [address] [place] [phone] May, [facility] [address] [id number] [address] [place] [address], [place] [address] 16 Jun, 2015 Encounter for immunization Z 23 [facility] [address] [id number] [address] [place] [address], [place] [address] 29 May, 2015 [facility] [address] [id number] [address] [place] [address], [place] [address] 22 May, 2015 [facility] [address] [id number] [address] [place] [address], [place] [address] Apr, [facility] [address] [id number] [address] [place] [address], [place] [address] Feb, [facility] [address] [id number] [address] [place] [address], [place] [address] Feb, [facility] [address] [id number] [address] [place] [address], [place] [address] Feb, [facility] [address] [id number] [address] [place] [address], [place] [address] January, [facility] [address] [id number] [address] [place] [address], [place] [address] January, [facility] [address] [id number] [address] [place] [phone] Dec, [facility] [address] [id number] [address] [place] [phone] Dec, [facility] [address] [id number] [address] [place] [phone] Nov, [facility] [address] [id number] [address] [place] [address], [place] [address] Nov, [facility] [address] [id number] [address] [place] [phone] Nov, [facility] [address] [id number] [address] [place] [phone] Nov, [facility] [address] [id number] [address] [place] [address], [place] [address] Nov, [facility] [address] [id number] [address] [place] [address], [place] [address] Nov, [facility] [address] [id number] [address] [place] [address], [place] [address] Nov, [facility] [address] [id number] [address] [place] [address], [place] [address] Oct, [facility] [address] [id number] [address] [place] [address], [place] [address] Oct, [facility] [address] [id number] [address] [place] [address], [place] [address] Oct, [facility] [address] [id number] [address] [place] [address], [place] [address] Oct, [facility] [address] [id number] [address] [place] [address], [place] [address] Oct, [facility] [address] [id number] [address] [place] [address], [place] [address] Sep, [facility] [address] [id number] [address] [place] [address], [place] [address] Sep, [facility] [address] [id number] [address] [place] [address], [place] [address] Sep, [facility] [address] [id number] [address] [place] [address], [place] [address] Sep, [facility] [address] [id number] [address] [place] [address], [place] [address] Sep, [facility] [address] [id number] [address] [place] [address], [place] [address] Sep, [facility] [address] [id number] [address] [place] [address], [place] [address] Sep, [facility] [address] [id number] [address] [place] [address], [place] [address] Sep, [facility] [address] [id number] [address] [place] [address], [place] [address] Sep, [facility] [address] [id number] [address] [place] [address], [place] [address] Sep, [facility] [address] [id number] [address] [place] [address], [place] [address] Aug, [facility] [address] [id number] [address] [place] [address], [place] [address] Aug, [facility] [address] [id number] [address] [place] [address], [place] [address] Aug, [facility] [address] [id number] [address] [place] [address], [place] [address] Aug, [facility] [address] [id number] [address] [place] [address], [place] [address] Aug, [facility] [address] [id number] [address] [place] [address], [place] [address] Aug, [facility] [address] [id number] [address] [place] [address], [place] [address] Aug, [facility] [address] [id number] [address] [place] [address], [place] [address] Aug, [facility] [address] [id number] [address] [place] [address], [place] [address] Aug, [facility] [address] [id number] [address] [place] [address], [place] [address] Aug, [facility] [address] [id number] [address] [place] [address], [place] [address] Aug, [facility] [address] [id number] [address] [place] [address], [place] [address] Aug, [facility] [address] [id number] [address] [place] [address], [place] [address] 18 Aug, 2014 [facility] [address] [id number] [address] [place] [address], [place] [address] 18 Aug, 2014 [facility] [address] [id number] [address] [place] [address], [place] [address] 17 Aug, 2014 [facility] [address] [id number] [address] [place] [address], [place] [address] 17 Aug, 2014 [facility] [address] [id number] [address] [place] [address], [place] [address] 16 Aug, 2014 [facility] [address] [id number] [address] [place] [address], [place] [address] 16 Aug, 2014 [facility] [address] [id number] [address] [place] [address], [place] [address] 12 Aug, 2014 [facility] [address] [id number] [address] [place] [address], [place] [address] Aug, [facility] [address] [id number] [address] [place] [address], [place] [address] 08 Aug, 2014 [facility] [address] [id number] [address] [place] [address], [place] [address] 08 Aug, 2014 [facility] [address] [id number] [address] [place] [address], [place] [address] 05 Aug, 2014 [facility] [address] [id number] [address] [place] [address], [place] [address] 05 Aug, 2014 [facility] [address] [id number] [address] [place] [address], [place] [address] Jul, [facility] [address] [id number] [address] [place] [address], [place] [address] Jul, [facility] [address] [id number] [address] [place] [address], [place] [address] Jun, [facility] [address] [id number] [address] [place] [address], [place] [address] Jun, [facility] [address] [id number] [address] [place] [address], [place] [address] Jun, [facility] [address] [id number] [address] [place] [address], [place] [address] 17 Jun, 2014 [facility] [address] [id number] [address] [place] [address], [place] [address] 15 Jun, 2014 [facility] [address] [id number] [address] [place] [address], [place] [address] 15 Jun, 2014 [facility] [address] [id number] [address] [place] [address], [place] [address] 14 Jun, 2014 [facility] [address] [id number] [address] [place] [address], [place] [address] 14 Jun, 2014 [facility] [address] [id number] [address] [place] [address], [place] [address] 13 Jun, 2014 [facility] [address] [id number] [address] [place] [address], [place] [address] 13 Jun, 2014 [facility] [address] [id number] [address] [place] [address], [place] [address] 13 Jun, 2014 [facility] [address] [id number] [address] [place] [address], [place] [address] 13 Jun, 2014 [facility] [address] [id number] [address] [place] [address], [place] [address] 06 Jun, 2014 [facility] [address] [id number] [address] [place] [address], [place] [address] 06 Jun, 2014 [facility] [address] [id number] [address] [place] [address], [place] [address] 26 May, 2013 [facility] [address] [id number] [address] [place] [address], [place] [address] 26 May, 2013 [facility] [address] [id number] [address] [place] [address], [place] [address] 22 May, 2013 [facility] [address] [id number] [address] [place] [address], [place] [address] 22 May, 2013 [facility] [address] [id number] [address] [place] [address], [place] [address] May, [facility] [address] [id number] [facility] [address] May, [facility] [address] [id number] [address] [place] [address], [place] [address] May, [facility] [address] [id number] [address] [place] [address], [place] [address] May, [facility] [address] [id number] [address] [place] [address], [place] [address] Apr, [facility] [address] [id number] [address] [place] [address], [place] [address] Apr, [facility] [address] [id number] [address] [place] [address], [place] [address] Apr, [facility] [address] [id number] [address] [place] [address], [place] [address] Apr, [facility] [address] [id number] [address] [place] [address], [place] [address] Apr, [facility] [address] [id number] [address] [place] [address], [place] [address] Apr, [facility] [address] [id number] [address] [place] [address], [place] [address] Apr, [facility] [address] [id number] [address] [place] [address], [place] [address] Apr, [facility] [address] [id number] [address] [place] [address], [place] [address] Apr, [facility] [address] [id number] [address] [place] [address], [place] [address] Mar, [facility] [address] [id number] [address] [place] [address], [place] [address] Mar, [facility] [address] [id number] [address] [place] [address], [place] [address] Mar, [facility] [address] [id number] [facility] [address] 30 Feb, 2014 [facility] [address] [id number] [address] [place] [address], [place] [address] 30 Feb, 2014 [facility] [address] [id number] [facility] [address] 27 Feb, 2014 [facility] [address] [id number] [address] [place] [address], [place] [address] 27 Feb, 2014 [facility] [address] [id number] [address] [place] [address], [place] [address] 17 Feb, 2014 [facility] [address] [id number] [address] [place] [address], [place] [address] 17 Feb, 2014 [facility] [address] [id number] [address] [place] [address], [place] [address] 16 Feb, 2014 [facility] [address] [id number] [address] [place] [address], [place] [address] 16 Feb, 2014 [facility] [address] [id number] [address] [place] [address], [place] [address] 16 Feb, 2014 [facility] [address] [id number] [address] [place] [address], [place] [address] Feb, [facility] [address] [id number] [address] [place] [address], [place] [address] Feb, [facility] [address] [id number] [address] [place] [address], [place] [address] Feb, [facility] [address] [id number] [address] [place] [address], [place] [address] Feb, [facility] [address] [id number] [address] [place] [address], [place] [address] Feb, [facility] [address] [id number] [address] [place] [address], [place] [address] Feb, [facility] [address] [id number] [address] [place] [address], [place] [address] Feb, [facility] [address] [id number] [address] [place] [address], [place] [address] January, [facility] [address] [id number] [address] [place] [address], [place] [address] January, [facility] [address] [id number] [address] [place] [address], [place] [address] January, [facility] [address] [id number] [address] [place] [address], [place] [address] January, [facility] [address] [id number] [address] [place] [address], [place] [address] January, [facility] [address] [id number] [address] [place] [address], [place] [address] January, [facility] [address] [id number] [address] [place] [address], [place] [address] January, [facility] [address] [id number] [address] [place] [address], [place] [address] January, [facility] [address] [id number] [address] [place] [address], [place] [address] January, [facility] [address] [id number] [address] [place] [address], [place] [address] January, [facility] [address] [id number] [address] [place] [address], [place] [address] January, [facility] [address] [id number] [address] [place] [address], [place] [address] January, [facility] [address] [id number] [address] [place] [address], [place] [address] January, [facility] [address] [id number] [address] [place] [address], [place] [address] January, [facility] [address] [id number] [address] [place] [address], [place] [address] January, [facility] [address] [id number] [address] [place] [address], [place] [address] January, [facility] [address] [id number] [facility] [address] January, [facility] [address] [id number] [address] [place] [address], [place] [address] January, [facility] [address] [id number] [address] [place] [address], [place] [address] January, [facility] [address] [id number] [address] [place] [address], [place] [address] January, [facility] [address] [id number] [address] [place] [address], [place] [address] January, [facility] [address] [id number] [address] [place] [address], [place] [address] January, [facility] [address] [id number] [address] [place] [address], [place] [address] January, [facility] [address] [id number] [address] [place] [address], [place] [address] January, [facility] [address] [id number] [address] [place] [address], [place] [address] January, [facility] [address] [id number] [address] [place] [address], [place] [address] January, [facility] [address] [id number] [address] [place] [address], [place] [address] Dec, [facility] [address] [id number] [address] [place] [address], [place] [address] Dec, [facility] [address] [id number] [address] [place] [address], [place] [address] Dec, [facility] [address] [id number] [address] [place] [address], [place] [address] Dec, [facility] [address] [id number] [address] [place] [address], [place] [address] Dec, [facility] [address] [id number] [facility] [address] Dec, [facility] [address] [id number] [address] [place] [address], [place] [address] Dec, [facility] [address] [id number] [address] [place] [address], [place] [address] Dec, [facility] [address] [id number] [address] [place] [address], [place] [address] Dec, [facility] [address] [id number] [address] [place] [address], [place] [address] Dec, [facility] [address] [id number] [address] [place] [address], [place] [address] Dec, [facility] [address] [id number] [address] [place] [address], [place] [address] Dec, [facility] [address] [id number] [address] [place] [address], [place] [address] Dec, [facility] [address] [id number] [address] [place] [address], [place] [address] Dec, [facility] [address] [id number] [address] [place] [address], [place] [address] Dec, [facility] [address] [id number] [address] [place] [address], [place] [address] Dec, [facility] [address] [id number] [address] [place] [address], [place] [address] Dec, [facility] [address] [id number] [address] [place] [address], [place] [address] Dec, [facility] [address] [id number] [address] [place] [address], [place] [address] Dec, [facility] [address] [id number] [address] [place] [address], [place] [address] Dec, [facility] [address] [id number] [address] [place] [address], [place] [address] Dec, [facility] [address] [id number] [facility] [address] Dec, [facility] [address] [id number] [facility] [address] 31 Nov, 2013 [facility] [address] [id number] [address] [place] [address], [place] [address] 31 Nov, 2013 [facility] [address] [id number] [address] [place] [address], [place] [address] Nov, [facility] [address] [id number] [address] [place] [address], [place] [address] Nov, [facility] [address] [id number] [address] [place] [address], [place] [address] 24 Nov, 2013 [facility] [address] [id number] [address] [place] [address], [place] [address] 24 Nov, 2013 [facility] [address] [id number] [address] [place] [address], [place] [address] Nov, [facility] [address] [id number] [address] [place] [address], [place] [address] 22 Nov, 2013 [facility] [address] [id number] [address] [place] [address], [place] [address] 18 Nov, 2013 [facility] [address] [id number] [address] [place] [address], [place] [address] 18 Nov, 2013 [facility] [address] [id number] [address] [place] [address], [place] [address] 18 Nov, 2013 [facility] [address] [id number] [address] [place] [address], [place] [address] 18 Nov, 2013 [facility] [address] [id number] [address] [place] [address], [place] [address] 14 Nov, 2013 [facility] [address] [id number] [address] [place] [address], [place] [address] 14 Nov, 2013 [facility] [address] [id number] [address] [place] [address], [place] [address] Nov, [facility] [address] [id number] [address] [place] [address], [place] [address] Nov, [facility] [address] [id number] [address] [place] [address], [place] [address] Oct, [facility] [address] [id number] [address] [place] [address], [place] [address] Oct, [facility] [address] [id number] [address] [place] [address], [place] [address] Oct, [facility] [address] [id number] [address] [place] [address], [place] [address] Oct, [facility] [address] [id number] [address] [place] [address], [place] [address] Oct, [facility] [address] [id number] [address] [place] [address], [place] [address] Oct, [facility] [address] [id number] [address] [place] [address], [place] [address] Oct, [facility] [address] [id number] [address] [place] [address], [place] [address] Oct, [facility] [address] [id number] [address] [place] [address], [place] [address] Oct, [facility] [address] [id number] [address] [place] [address], [place] [address] 17 Oct, 2013 [facility] [address] [id number] [address] [place] [address], [place] [address] 14 Oct, 2013 [facility] [address] [id number] [address] [place] [address], [place] [address] 14 Oct, 2013 [facility] [address] [id number] [address] [place] [address], [place] [address] 04 Oct, 2013 [facility] [address] [id number] [address] [place] [address], [place] [address] 04 Oct, 2013 [facility] [address] [id number] [address] [place] [address], [place] [address] Oct, [facility] [address] [id number] [address] [place] [address], [place] [address] Sep, [facility] [address] [id number] [address] [place] [address], [place] [address] 17 Sep, 2013 [facility] [address] [id number] [address] [place] [address], [place] [address] Sep, [facility] [address] [id number] [address] [place] [address], [place] [address] Sep, [facility] [address] [id number] [address] [place] [address], [place] [address] Sep, [facility] [address] [id number] [address] [place] [address], [place] [address] Sep, [facility] [address] [id number] [address] [place] [address], [place] [address] Sep, [facility] [address] [id number] [address] [place] [address], [place] [address] Sep, [facility] [address] [id number] [address] [place] [address], [place] [address] Sep, [facility] [address] [id number] [address] [place] [address], [place] [address] Sep, [facility] [address] [id number] [address] [place] [address], [place] [address] Sep, [facility] [address] [id number] [address] [place] [address], [place] [address] Sep, [facility] [address] [id number] [address] [place] [address], [place] [address] Sep, [facility] [address] [id number] [address] [place] [address], [place] [address] Aug, [facility] [address] [id number] [address] [place] [address], [place] [address] 30 Aug, 2013 [facility] [address] [id number] [address] [place] [address], [place] [address] 24 Aug, 2013 [facility] [address] [id number] [address] [place] [address], [place] [address] 24 Aug, 2013 [facility] [address] [id number] [address] [place] [address], [place] [address] 17 Aug, 2013 [facility] [address] [id number] [address] [place] [address], [place] [address] 17 Aug, 2013 [facility] [address] [id number] [address] [place] [address], [place] [address] 16 Aug, 2013 [facility] [address] [id number] [address] [place] [address], [place] [address] 16 Aug, 2013 [facility] [address] [id number] [address] [place] [address], [place] [address] 12 Aug, 2013 [facility] [address] [id number] [address] [place] [address], [place] [address] 12 Aug, 2013 [facility] [address] [id number] [address] [place] [address], [place] [address] 10 Aug, 2013 [facility] [address] [id number] [address] [place] [address], [place] [address] 10 Aug, 2013 [facility] [address] [id number] [address] [place] [address], [place] [address] 02 Aug, 2013 [facility] [address] [id number] [address] [place] [address], [place] [address] Aug, [facility] [address] [id number] [address] [place] [address], [place] [address] Jul, [facility] [address] [id number] [address] [place] [address], [place] [address] Jul, [facility] [address] [id number] [address] [place] [address], [place] [address] 18 Jul, 2013 [facility] [address] [id number] [address] [place] [address], [place] [address] 18 Jul, 2013 [facility] [address] [id number] [address] [place] [address], [place] [address] 14 Jul, 2013 [facility] [address] [id number] [address] [place] [address], [place] [address] 14 Jul, 2013 [facility] [address] [id number] [address] [place] [address], [place] [address] 14 Jul, 2013 [facility] [address] [id number] [address] [place] [address], [place] [address] 14 Jul, 2013 [facility] [address] [id number] [address] [place] [address], [place] [address] 07 Jul, 2013 [facility] [address] [id number] [address] [place] [address], [place] [address] 07 Jul, 2013 [facility] [address] [id number] [address] [place] [address] 06 Jul, 2013 [facility] [address] [id number] [address] [place] [address], [place] [address] 06 Jul, 2013 [facility] [address] [id number] [address] [place] [address] 05 Jul, 2013 [facility] [address] [id number] [address] [place] [address] 05 Jul, 2013 [facility] [address] [id number] [address] [place] [address] Jun, [facility] [address] [id number] [address] [place] [address] Jun, [facility] [address] [id number] [address] [place] [address] 15 Jun, 2013 [facility] [address] [id number] [address] [place] [address] 15 Jun, 2013 [facility] [address] [id number] [address] [place] [address] 14 Jun, 2012 [facility] [address] [id number] [address] [place] [address], [place] [address] 24 Sep, 2012 [facility] [address] [id number] [address] [place] [address], [place] [address] 20 Sep, 2012 [facility] [address] [id number] [address] [place] [address], [place] [address] 20 Sep, 2012 [facility] [address] [id number] [address] [place] [address], [place] [address] 20 Sep, 2012 [facility] [address] [id number] [address] [place] [address], [place] [address] 19 Sep, 2012 [facility] [address] [id number] [address] [place] [address], [place] [address] 13 May, 2012 [facility] [address] [id number] [address] [place] [address], [place] [address] 12 Sep, 2012 [facility] [address] [id number] [address] [place] [address], [place] [address] 12 May, 2012 [facility] [address] [id number] [address] [place] [address], [place] [address] 11 Sep, 2012 [facility] [address] [id number] [address] [place] [address], [place] [address] 11 Sep, 2012 [facility] [address] [id number] [address] [place] [address], [place] [address] 11 Sep, 2012 [facility] [address] [id number] [address] [place] [address], [place] [address] 09 Sep, 2012 [facility] [address] [id number] [address] [place] [address], [place] [address] 05 Sep, 2012 [facility] [address] [id number] [address] [place] [address], [place] [address] 04 Sep, 2012 [facility] [address] [id number] [address] [place] [address], [place] [address] 03 Sep, 2012 [facility] [address] [id number] [facility] [address] Apr, [facility] [address] [id number] [facility] [address] Apr, [facility] [address] [id number] [facility] [address] Apr, [facility] [address] [id number] [address] [place] [address], [place] [address] Apr, [facility] [address] [id number] [address] [place] [address], [place] [address] Apr, [facility] [address] [id number] [address] [place] [address], [place] [address] Apr, [facility] [address] [id number] [address] [place] [address], [place] [address] Apr, [facility] [address] [id number] [address] [place] [address], [place] [address] Apr, [facility] [address] [id number] [address] [place] [address], [place] [address] Apr, [facility] [address] [id number] [address] [place] [address], [place] [address] Mar, [facility] [address] [id number] [address] [place] [address], [place] [address] Mar, [facility] [address] [id number] [address] [place] [address], [place] [address] Mar, [facility] [address] [id number] [address] [place] [address], [place] [address] Mar, [facility] [address] [id number] [address] [place] [address], [place] [address] Mar, [facility] [address] [id number] [address] [place] [address], [place] [address] Mar, [facility] [address] [id number] [address] [place] [address], [place] [address] Mar, [facility] [address] [id number] [address] [place] [address], [place] [address] Mar, [facility] [address] [id number] [address] [place] [address], [place] [address] Mar, [facility] [address] [id number] [address] [place] [address], [place] [address] Mar, [facility] [address] [id number] [address] [place] [address], [place] [address] Mar, [facility] [address] [id number] [address] [place] [address], [place] [address] Feb, [facility] [address] [id number] [address] [place] [address], [place] [address] Feb, [facility] [address] [id number] [address] [place] [address], [place] [address] Feb, [facility] [address] [id number] [address] [place] [address], [place] [address] Feb, [facility] [address] [id number] [address] [place] [address], [place] [address] Feb, [facility] [address] [id number] [address] [place] [address], [place] [address] Feb, [facility] [address] [id number] [address] [place] [address], [place] [address] Feb, [facility] [address] [id number] [address] [place] [address], [place] [address] Feb, [facility] [address] [id number] [address] [place] [address], [place] [address] Feb, [facility] [address] [id number] [address] [place] [address], [place] [address] January, [facility] [address] [id number] [address] [place] [address], [place] [address] January, [facility] [address] [id number] [address] [place] [address], [place] [address] January, [facility] [address] [id number] [address] [place] [address], [place] [address] January, [facility] [address] [id number] [address] [place] [address], [place] [address] January, [facility] [address] [id number] [address] [place] [address], [place] [address] January, [facility] [address] [id number] [address] [place] [address], [place] [address] January, [facility] [address] [id number] [address] [place] [address], [place] [address] January, [facility] [address] [id number] [address] [place] [address], [place] [address] January, [facility] [address] [id number] [address] [place] [address], [place] [address] January, [facility] [address] [id number] [address] [place] [address], [place] [address] January, [facility] [address] [id number] [address] [place] [address], [place] [address] January, [facility] [address] [id number] [address] [place] [address], [place] [address] January, [facility] [address] [id number] [address] [place] [address], [place] [address] January, [facility] [address] [id number] [address] [place] [address], [place] [address] January, [facility] [address] [id number] [address] [place] [address], [place] [address] January, [facility] [address] [id number] [address] [place] [address], [place] [address] January, [facility] [address] [id number] [address] [place] [address], [place] [address] January, [facility] [address] [id number] [address] [place] [address], [place] [address] January, [facility] [address] [id number] [address] [place] [address], [place] [address] January, [facility] [address] [id number] [address] [place] [address], [place] [address] January, [facility] [address] [id number] [address] [place] [address], [place] [address] January, [facility] [address] [id number] [address] [place] [address], [place] [address] January, [facility] [address] [id number] [address] [place] [address], [place] [address] Dec, [facility] [address] [id number] [address] [place] [address], [place] [address] Dec, [facility] [address] [id number] [address] [place] [address], [place] [address] Dec, [facility] [address] [id number] [address] [place] [address], [place] [address] Dec, [facility] [address] [id number] [address] [place] [address], [place] [address] Dec, [facility] [address] [id number] [address] [place] [address], [place] [address] Nov, [facility] [address] [id number] [address] [place] [address], [place] [address] Oct, [facility] [address] [id number] [address] [place] [address], [place] [address] Oct, [facility] [address] [id number] [address] [place] [address], [place] [address] Oct, [facility] [address] [id number] [address] [place] [address], [place] [address] Oct, [facility] [address] [id number] [address] [place] [address] Oct, [facility] [address] [id number] [address] [place] [address], [place] [address] Sep, [facility] [address] [id number] [address] [place] [address], [place] [address] Sep, [facility] [address] [id number] [address] [place] [address], [place] [address] Sep, [facility] [address] [id number] [address] [place] [address], [place] [address] Aug, [facility] [address] [id number] [address] [place] [address], [place] [address] Aug, [facility] [address] [id number] [address] [place] [address], [place] [address] Aug, [facility] [address] [id number] [address] [place] [address], [place] [address] Aug, [facility] [address] [id number] [address] [place] [address], [place] [address] Jul, [facility] [address] [id number] [address] [place] [address], [place] [address] Jul, [facility] [address] [id number] [address] [place] [address], [place] [address] Jul, [facility] [address] [id number] [address] [place] [address], [place] [address] Jul, [facility] [address] [id number] [address] [place] [address] Jul, [facility] [address] [id number] [address] [place] [address], [place] [address] Jul, [facility] [address] [id number] [address] [place] [address], [place] [address] Jun, [facility] [address] [id number] [address] [place] [address], [place] [address] Jun, [facility] [address] [id number] [address] [place], [place] [address], [place] [address] 10 Jun, 2012 [facility] [address] [id number] [address] [place] [address], [place] [address] Jun, [facility] [address] [id number] [address] [place] [address], [place] [address] Jun, [facility] [address] [id number] [address] [place] [address], [place] [address] Jun, [facility] [address] [id number] [address] [place] [address], [place] [address] Jun, [facility] [address] [id number] [address] [place] [address], [place] [address] Jun, [facility] [address] [id number] [address] [place] [address], [place] [address] Jun, [facility] [address] [id number] [address] [place] [address], [place] [address] Jun, [facility] [address] [id number] [address] [place] [address], [place] [address] 17 May, 2012 [facility] [address] [id number] [address] [place] [address], [place] [address] 08 May, 2012 [facility] [address] [id number] [address] [place] [address], [place] [address] 06 May, 2012 [facility] [address] [id number] [address] [place] [address], [place] [address] 30 Apr, 2012 [facility] [address] [id number] [address] [place] [address], [place] [address] 29 Apr, 2012 [facility] [address] [id number] [address] [place] [address], [place] [address] 14 Apr, 2012 [facility] [address] [id number] [address] [place] [address], [place] [address] Apr, [facility] [address] [id number] [address] [place] [address], [place] [address] Apr, [facility] [address] [id number] [address] [place] [address], [place] [address] Apr, [facility] [address] [id number] [address] [place] [address], [place] [address] Apr, [facility] [address] [id number] [address] [place] [address], [place] [address] Apr, [facility] [address] [id number] [address] [place] [address], [place] [address] Apr, [facility] [address] [id number] [address] [place] [address], [place] [address] Mar, [facility] [address] [id number] [address] [place] [address], [place] [address] Mar, [facility] [address] [id number] [address] [place] [address], [place] [address] Mar, [facility] [address] [id number] [address] [place] [address], [place] [address] Mar, [facility] [address] [id number] [address] [place] [address], [place] [address] Feb, [facility] [address] [id number] [address] [place] [address], [place] [address] Feb, [facility] [address] [id number] [address] [place] [address], [place] [address] Feb, [facility] [address] [id number] [address] [place] [address], [place] [address] January, [facility] [address] [id number] [address] [place] [address], [place] [address] January, [facility] [address] [id number] [address] [place] [address], [place] [address] January, [facility] [address] [id number] [address] [place] [address], [place] [address] January, [facility] [address] [id number] [address] [place] [address], [place] [address] 15 Jan, 2012 [facility] [address] [id number] [address] [place] [address], [place] [address] 30 Dec, 2011 [facility] [address] [id number] [address] [place] [address], [place] [address] Dec, [facility] [address] [id number] [address] [place] [address], [place] [address] 16 Dec, 2011 [facility] [address] [id number] [address] [place] [address], [place] [address] Oct, [facility] [address] [id number] [address] [place] [address], [place] [address] 24 Oct, 2011 [facility] [address] [id number] [address] [place] [address], [place] [address] Oct, [facility] [address] [id number] [address] [place] [address], [place] [address] Sep, [facility] [address] [id number] [address] [place] [address], [place] [address] Sep, [facility] [address] [id number] [address] [place] [address], [place] [address] Aug, [facility] [address] [id number] [address] [place] [address], [place] [address] 08 Jul, 2011 [facility] [address] [id number] [address] [place] [address], [place] [address] 08 Jul, 2011 [facility] [address] [id number] [address] [place] [address], [place] [address] Mar, [facility] [address] [id number] [address] [place] [address], [place] [address] 10 Aug, 2010 [facility] [address] [id number] [address] [place] [address], [place] [address] 10 Jul, 2010 [facility] [address] [id number] [address] [place] [address], [place] [address] 04 Jul, 2010 [facility] [address] [id number] [address] [place] [address], [place] [address] 04 Jul, 2010 [facility] [address] [id number] [address] [place] [address] 04 Jul, 2010 [facility] [address] [id number] [address] [place] [address] 14 Jun, 2010 [facility] [address] [id number] [address] [place] [address] Jun, [facility] [address] [id number] [address] [place] [address], [place] [address] 17 Apr, 2010 [facility] [address] [id number] [address] [place] [address] Aug, [facility] [address] [id number] [address] [place] [address] 17 Jul, 2009 [facility] [address] [id number] [address] [place] [address] 17 Jul, 2009 [facility] [address] [id number] [address] [place] [address] Jul, [facility] [address] [id number] [address] [place] [address] 23 Jun, 2009 [facility] [address] [id number] [address] [place] [address] 10 May, 2009 [facility] [address] [id number] [address] [place] [address] 14 Dec, 2008 [facility] [address] [id number] [address] [place] [address] Nov, [facility] [address] [id number] [address] [place] [address] 10 Oct, 2008 [facility] [address] [id number] [address] [place] [address] 05 Aug, 2008 [facility] [address] [id number] [address] [place] [address] Aug, [facility] [address] [facility] [id number] [address] [place] [address] Jun, IMMUNIZATIONS No Known Immunizations SOCIAL HISTORY [...] x 3 day s 04/2012 Hospitalization History [facility] [place]- Right wrist injury 03/29/2018
--- OUTSIDE RECORDS SUMMARY | 2020-04-09 00:11 | XMS REPORT ---
Author Author Kateryna Turner Doctor Organization [facility] Address Unknown Phone Unavailable Care Team Providers Care Silver Plater Name Role Phone Migration, Doctor Unavailable Unavailable PROBLEMS Type Condition ICD9-CM Code [id number] Code Onset Dates Condition S tatus SNOMED Code Problem Irregular menses N92.6 Active 801 89730 Problem Migraine with aura and without status migrainosu s, not intractable G43.109 Active 0254655 Problem Uncontrolled type 2 diabetes mellitus with hyperglycemia E11.65 Active 485938514 Problem Morbid obesity due to excess calories E66.01 Active [id number] Problem RLS (restless legs syndrome) G25.81 A ctive 41091367 Problem Morbid obesity E66.01 Active 18988 6002 ALLERGIES No Information ENCOUNTERS Encounter Location Date Diagnosis [facility] [address] [facility] [id number] [address] [place] [phone] January, [facility] [address] [facility] [id number] [address] [place] [phone] Dec, [facility] [address] [facility] [id number] [address] [place] [phone] Dec, [facility] [address] [facility] [id number] [address] [place] [address] Dec, Uncontrolled type 2 diabetes mellitus with hyperglycemia E11.65 [facility] [address] [facility] [id number] [address] [place] [phone] 07 Dec, 2019 [facility] [address] [id number] [address] [place] [phone] Dec, [facility] [address] [facility] [id number] [address] [place] [phone] Dec, [facility] [address] [facility] [id number] [address] [place] [phone] Nov, [facility] [address] [id number] [address] [place] [phone] 28 Nov, 2019 [facility] [address] [id number] [address] [place] [phone] 03 Nov, 2019 [facility] [address] [facility] [id number] [address] [place] [phone] 02 Nov, 2019 RLS (restless legs syndrome) G25.81 [facility] [address] [id number] [address] [place] [phone] 15 Oct, 2019 [facility] [address] [facility] [id number] [address] [place] [phone] 09 Oct, 2019 Influenza J11.1 [facility] [address] [facility] [id number] [address] [place] [phone] 16 Sep, 2019 [facility] [address] [facility] [id number] [address] [place] [phone] 14 Sep, 2019 [facility] [address] [facility] [id number] [address] [place] [phone] 14 Sep, 2019 [facility] [address] [id number] [address] [place] [phone] 13 Sep, 2019 [facility] [address] [facility] [id number] [address] [place] [address] 10 Sep, 2019 Pneumonia of left lower lobe due to infectious organism J18.9 and Migraine with aura and without status migrainosus, not intractable G43.109 [facility] [address] [facility] [id number] [address] [place] [phone] 10 Sep, 2019 [facility] [address] [facility] [id number] [address] [place] [phone] 10 Sep, 2019 [facility] [address] [facility] [id number] [address] [place] [phone] 08 Sep, 2019 [facility] [address] [facility] [id number] [address] [place] [phone] 08 Sep, 2019 [facility] [address] [id number] [address] [place] [phone] 08 Sep, 2019 Pneumonia of left lower lobe due to infectious organism J18.9 and Migraine with aura and without status migrainosus, not intractable G43.109 [facility] [address] [id number] [address] [place] [phone] Aug, Irregular menses N92.6 ; Wel l woman exam Z01.419 ; Pelvic cramping R10.2 and Left breast lump N63.20 [facility] [address] [id number] [address] [place] [phone] Aug, [facility] [address] [facility] [id number] [address] [place] [address] 17 Aug, 2019 Well woman exam Z01.419 ; Le ft breast lump N63.20 ; Irregular menses N92.6 ; Encounter for immunization Z23 ; Pelvic cramping R10.2 and Screening for cervical cancer Z12.4 [facility] [address] [facility] [id number] [address] [place] [phone] Aug, [facility] [address] [id number] [address] [place] [phone] Aug, [facility] [address] [facility] [id number] [address] [place] [phone] Aug, [facility] [address] [id number] [address] [place] [phone] Jul, [facility] [address] [facility] [id number] [address] [place] [phone] Jun, [facility] [address] [id number] [address] [place] [phone] Jun, [facility] [address] [facility] [id number] [address] [place] [phone] 14 Jun, 2019 [facility] [address] [facility] [id number] [address] [place] [phone] Jun, BMI 50.0-59.9, adult Z68.43 [facility] [address] [place] [id number] [address] [place] [phone] Jun, [facility] [address] [place] [id number] [place] [phone] May, Acute non-recurrent sinusiti s, unspecified location J01.90 ; Diarrhea, unspecified R19.7 ; Vomiting, unspecified R11.10 and Morbid obesity E66.01 [place] [address] [address] Apr, [place] [address] [address] Apr, Anemia due to other cause, n ot classified D64.89 and D-dimer, elevated R79.89 [place] [address] [address] Apr, [place] [address] [address] Apr, [place] [address] [address] Mar, Anemia due to other cause, n ot classified D64.89 and D-dimer, elevated R79.89 [place] [address] [address] Mar, Leg edema, right R60.0 ; Hig h risk medication use Z79.899 and Morbid obesity E66.01 [facility] [address] [place] [id number] [address] [place] [phone] Mar, BMI 50.0-59.9, adult Z68.43 [place] [address] [address] Mar, [place] [address] [address] January, Uncontrolled type 2 diabetes mellitus with hyperglycemia E11.65 ; RLS (restless legs syndrome) G25.81 and Morbid obesity E66.01 [facility] [address] [id number] [address] [place] [phone] 15 Oct, 2018 Lipoma of right lower extrem ity D17.23 [facility] [address] [id number] [address] [place] [phone] 05 Oct, 2018 Lipoma of right lower extrem ity D17.23 [facility] [address] [id number] [address] [place] [phone] Sep, [facility] [address] [id number] [address] [place] [phone] Sep, [facility] [address] [id number] [address] [place] [phone] Sep, [facility] [address] [facility] [id number] [address] [place] [phone] Sep, [facility] [address] [facility] [id number] [address] [place] [phone] Sep, [facility] [address] [facility] [id number] [address] [place] [address] Aug, Uncontrolled type 2 diabetes mellitus with hyperglycemia E11.65 ; Morbid obesity due to excess calories E66.01 ; Lipoma of torso D17.1 and BMI 50.0-59.9, adult Z68.43 [facility] [address] [facility] [id number] [address] [place] [phone] Jun, Encounter for immunization Z 23 [facility] [address] [id number] [address] [place] [phone] Jul, [facility] [address] [facility] [id number] [address] [place] [phone] Jun, Encounter for immunization Z 23 [facility] [address] [id number] [address] [place] [phone] May, [facility] [address] [facility] [id number] [address] [place] [phone] Jun, Encounter for immunization Z 23 [facility] [address] [id number] [address] [place] [address], [place] [address] 29 May, 2015 [facility] [address] [id number] [address] [place] [address], [place] [address] May, [facility] [address] [id number] [address] [place] [address], [place] [address] Apr, [facility] [address] [id number] [address] [place] [address], [place] [address] Feb, [facility] [address] [id number] [address] [place] [address], [place] [address] Feb, [facility] [address] [id number] [address] [place] [address], [place] [address] Feb, [facility] [address] [id number] [address] [place] [address], [place] [address] January, [facility] [address] [id number] [address] [place] [address], [place] [address] January, [facility] [address] [id number] [address] [place] [address], [place] [address] Dec, [facility] [address] [id number] [address] [place] [address], [place] [address] Dec, [facility] [address] [id number] [address] [place] [phone] Nov, [facility] [address] [id number] [address] [place] [phone] Nov, [facility] [address] [id number] [address] [place] [phone] Nov, [facility] [address] [id number] [address] [place] [phone] Nov, [facility] [address] [id number] [address] [place] [address], [place] [address] Nov, [facility] [address] [id number] [address] [place] [address], [place] [address] Nov, [facility] [address] [id number] [address] [place] [address], [place] [address] Nov, [facility] [address] [id number] [address] [place] [address], [place] [address] 18 Oct, 2014 [facility] [address] [id number] [address] [place] [address], [place] [address] Oct, [facility] [address] [id number] [address] [place] [address], [place] [address] Oct, [facility] [address] [id number] [address] [place] [address], [place] [address] Oct, [facility] [address] [id number] [address] [place] [address], [place] [address] Oct, [facility] [address] [id number] [address] [place] [address], [place] [address] Sep, [facility] [address] [id number] [address] [place] [address], [place] [address] Sep, [facility] [address] [id number] [address] [place] [address], [place] [address] Sep, [facility] [address] [id number] [address] [place] [address], [place] [address] Sep, [facility] [address] [id number] [address] [place] [address], [place] [address] Sep, [facility] [address] [id number] [address] [place] [address], [place] [address] Sep, [facility] [address] [id number] [address] [place] [address], [place] [address] Sep, [facility] [address] [id number] [address] [place] [address], [place] [address] Sep, [facility] [address] [id number] [address] [place] [address], [place] [address] Sep, [facility] [address] [id number] [address] [place] [address], [place] [address] Sep, [facility] [address] [id number] [address] [place] [address], [place] [address] Aug, [facility] [address] [id number] [address] [place] [address], [place] [address] Aug, [facility] [address] [id number] [address] [place] [address], [place] [address] Aug, [facility] [address] [id number] [address] [place] [address], [place] [address] Aug, [facility] [address] [id number] [address] [place] [address], [place] [address] Aug, [facility] [address] [id number] [address] [place] [address], [place] [address] Aug, [facility] [address] [id number] [address] [place] [address], [place] [address] Aug, [facility] [address] [id number] [address] [place] [address], [place] [address] Aug, [facility] [address] [id number] [address] [place] [address], [place] [address] Aug, [facility] [address] [id number] [address] [place] [address], [place] [address] Aug, [facility] [address] [id number] [address] [place] [address], [place] [address] Aug, [facility] [address] [id number] [address] [place] [address], [place] [address] Aug, [facility] [address] [id number] [address] [place] [address], [place] [address] Aug, [facility] [address] [id number] [address] [place] [address], [place] [address] Aug, [facility] [address] [id number] [address] [place] [address], [place] [address] 17 Aug, 2014 [facility] [address] [id number] [address] [place] [address], [place] [address] 17 Aug, 2014 [facility] [address] [id number] [address] [place] [address], [place] [address] 16 Aug, 2014 [facility] [address] [id number] [address] [place] [address], [place] [address] 16 Aug, 2014 [facility] [address] [id number] [address] [place] [address], [place] [address] Aug, [facility] [address] [id number] [address] [place] [address], [place] [address] Aug, [facility] [address] [id number] [address] [place] [address], [place] [address] Aug, [facility] [address] [id number] [address] [place] [address], [place] [address] Aug, [facility] [address] [id number] [address] [place] [address], [place] [address] 05 Aug, 2014 [facility] [address] [id number] [address] [place] [address], [place] [address] 05 Aug, 2014 [facility] [address] [id number] [address] [place] [address], [place] [address] Jul, [facility] [address] [id number] [address] [place] [address], [place] [address] Jul, [facility] [address] [id number] [address] [place] [address], [place] [address] Jun, [facility] [address] [id number] [address] [place] [address], [place] [address] Jun, [facility] [address] [id number] [address] [place] [address], [place] [address] Jun, [facility] [address] [id number] [address] [place] [address], [place] [address] Jun, [facility] [address] [id number] [address] [place] [address], [place] [address] 15 Jun, 2014 [facility] [address] [id number] [address] [place] [address], [place] [address] 15 Jun, 2014 [facility] [address] [id number] [address] [place] [address], [place] [address] 14 Jun, 2014 [facility] [address] [id number] [address] [place] [address], [place] [address] 14 Jun, 2014 [facility] [address] [id number] [address] [place] [address], [place] [address] 13 Jun, 2014 [facility] [address] [id number] [address] [place] [address], [place] [address] 13 Jun, 2014 [facility] [address] [id number] [address] [place] [address], [place] [address] 13 Jun, 2014 [facility] [address] [id number] [address] [place] [address], [place] [address] Jun, [facility] [address] [id number] [address] [place] [address], [place] [address] 06 Jun, 2014 [facility] [address] [id number] [address] [place] [address], [place] [address] 06 Jun, 2014 [facility] [address] [id number] [address] [place] [id number] 26 May, 2013 [facility] [address] [id number] [address] [place] [address] 26 May, 2013 [facility] [address] [id number] [address] [place] [address], [place] [address] 22 May, 2013 [facility] [address] [id number] [address] [place] [address], [place] [address] 22 May, 2013 [facility] [address] [id number] [address] [place] [address], [place] [address] 04 May, 2013 [facility] [address] [id number] [address] [place] [id number] May, [facility] [address] [id number] [address] [place] [address], [place] [address] May, [facility] [address] [id number] [address] [place] [address], [place] [address] May, [facility] [address] [id number] [address] [place] [address], [place] [address] Apr, [facility] [address] [id number] [address] [place] [address], [place] [address] Apr, [facility] [address] [id number] [address] [place] [address], [place] [address] Apr, [facility] [address] [id number] [address] [place] [address], [place] [address] Apr, [facility] [address] [id number] [address] [place] [address], [place] [address] Apr, [facility] [address] [id number] [address] [place] [address], [place] [address] Apr, [facility] [address] [id number] [address] [place] [address], [place] [address] Apr, [facility] [address] [id number] [address] [place] [address], [place] [address] Apr, [facility] [address] [id number] [address] [place] [address], [place] [address] Apr, [facility] [address] [id number] [address] [place] [address], [place] [address] Mar, [facility] [address] [id number] [address] [place] [address], [place] [address] Mar, [facility] [address] [id number] [address] [place] [address], [place] [address] Mar, [facility] [address] [id number] [address] [place] [address], [place] [address] Feb, [facility] [address] [id number] [facility] [address] 30 Feb, 2014 [facility] [address] [id number] [facility] [place] [address] Feb, [facility] [address] [id number] [facility] [place] [address] Feb, [facility] [address] [id number] [facility] [place] [address] Feb, [facility] [address] [id number] [facility] [place] [address] 17 Feb, 2014 [facility] [address] [id number] [address] [place] [address], [place] [address] Feb, [facility] [address] [id number] [address] [place] [address], [place] [address] Feb, [facility] [address] [id number] [address] [place] [address], [place] [address] Feb, [facility] [address] [id number] [address] [place] [address], [place] [address] Feb, [facility] [address] [id number] [address] [place] [address], [place] [address] Feb, [facility] [address] [id number] [address] [place] [address], [place] [address] Feb, [facility] [address] [id number] [address] [place] [address], [place] [address] Feb, [facility] [address] [id number] [address] [place] [address], [place] [address] Feb, [facility] [address] [id number] [address] [place] [address], [place] [address] Feb, [facility] [address] [id number] [address] [place] [address], [place] [address] Feb, [facility] [address] [id number] [address] [place] [address], [place] [address] January, [facility] [address] [id number] [facility] [place] [address] January, [facility] [address] [id number] [address] [place] [address], [place] [address] January, [facility] [address] [id number] [address] [place] [address], [place] [address] January, [facility] [address] [id number] [address] [place] [address], [place] [address] January, [facility] [address] [id number] [address] [place] [address], [place] [address] January, [facility] [address] [id number] [address] [place] [address], [place] [address] January, [facility] [address] [id number] [address] [place] [address], [place] [address] January, [facility] [address] [id number] [address] [place] [address], [place] [address] January, [facility] [address] [id number] [address] [place] [address], [place] [address] January, [facility] [address] [id number] [address] [place] [address], [place] [address] January, [facility] [address] [id number] [address] [place] [address], [place] [address] January, [facility] [address] [id number] [address] [place] [address], [place] [address] January, [facility] [address] [id number] [address] [place] [address], [place] [address] January, [facility] [address] [id number] [address] [place] [address], [place] [address] January, [facility] [address] [id number] [address] [place] [address], [place] [address] January, [facility] [address] [id number] [address] [place] [address], [place] [address] January, [facility] [address] [id number] [address] [place] [address], [place] [address] January, [facility] [address] [id number] [address] [place] [address], [place] [address] January, [facility] [address] [id number] [address] [place] [address], [place] [address] January, [facility] [address] [id number] [address] [place] [address], [place] [address] January, [facility] [address] [id number] [address] [place] [address], [place] [address] January, [facility] [address] [id number] [address] [place] [address], [place] [address] January, [facility] [address] [id number] [address] [place], [place] [address], [place] [address] January, [facility] [address] [id number] [address] [place] [address], [place] [address] January, [facility] [address] [id number] [address] [place] [address], [place] [address] January, [facility] [address] [id number] [address] [place] [address], [place] [address] Dec, [facility] [address] [id number] [address] [place] [address], [place] [address] Dec, [facility] [address] [id number] [address] [place] [address], [place] [address] Dec, [facility] [address] [id number] [address] [place] [address], [place] [address] Dec, [facility] [address] [id number] [address] [place] [address], [place] [address] Dec, [facility] [address] [id number] [address] [place] [address], [place] [address] Dec, [facility] [address] [id number] [facility] [place] [address] Dec, [facility] [address] [id number] [address] [place] [address], [place] [address] Dec, [facility] [address] [id number] [address] [place] [address], [place] [address] Dec, [facility] [address] [id number] [address] [place] [address], [place] [address] Dec, [facility] [address] [id number] [address] [place] [address], [place] [address] Dec, [facility] [address] [id number] [address] [place] [address], [place] [address] Dec, [facility] [address] [id number] [address] [place] [address], [place] [address] Dec, [facility] [address] [id number] [address] [place] [address], [place] [address] Dec, [facility] [address] [id number] [address] [place] [address], [place] [address] Dec, [facility] [address] [id number] [address] [place] [address], [place] [address] Dec, [facility] [address] [id number] [address] [place] [address], [place] [address] Dec, [facility] [address] [id number] [address] [place] [address], [place] [address] Dec, [facility] [address] [id number] [address] [place] [address], [place] [address] Dec, [facility] [address] [id number] [address] [place] [address], [place] [address] Dec, [facility] [address] [id number] [address] [place] [address], [place] [address] Dec, [facility] [address] [id number] [address] [place] [address], [place] [address] 07 Dec, 2013 [facility] [address] [id number] [facility] [address] 31 Nov, 2013 [facility] [address] [id number] [address] [place] [address], [place] [address] 31 Nov, 2013 [facility] [address] [id number] [facility] [address] Nov, [facility] [address] [id number] [address] [place] [address], [place] [address] Nov, [facility] [address] [id number] [facility] [place] [address] 24 Nov, 2013 [facility] [address] [id number] [address] [place] [address], [place] [address] 24 Nov, 2013 [facility] [address] [id number] [address] [place] [address], [place] [address] Nov, [facility] [address] [id number] [address] [place] [address], [place] [address] 22 Nov, 2013 [facility] [address] [id number] [address] [place] [address], [place] [address] 18 Nov, 2013 [facility] [address] [id number] [address] [place] [address], [place] [address] 18 Nov, 2013 [facility] [address] [id number] [address] [place] [address], [place] [address] 18 Nov, 2013 [facility] [address] [id number] [address] [place] [address], [place] [address] 18 Nov, 2013 [facility] [address] [id number] [address] [place] [address], [place] [address] 14 Nov, 2013 [facility] [address] [id number] [address] [place] [address], [place] [address] 14 Nov, 2013 [facility] [address] [id number] [address] [place] [address], [place] [address] 06 Nov, 2013 [facility] [address] [id number] [address] [place] [address], [place] [address] Nov, [facility] [address] [id number] [address] [place] [address], [place] [address] Oct, [facility] [address] [id number] [address] [place] [address], [place] [address] Oct, [facility] [address] [id number] [address] [place] [address], [place] [address] Oct, [facility] [address] [id number] [address] [place] [address], [place] [address] Oct, [facility] [address] [id number] [address] [place] [address], [place] [address] Oct, [facility] [address] [id number] [address] [place] [address], [place] [address] Oct, [facility] [address] [id number] [address] [place] [address], [place] [address] Oct, [facility] [address] [id number] [address] [place] [address], [place] [address] Oct, [facility] [address] [id number] [address] [place] [address], [place] [address] Oct, [facility] [address] [id number] [address] [place] [address], [place] [address] Oct, [facility] [address] [id number] [address] [place] [address] Oct, [facility] [address] [id number] [address] [place] [address], [place] [address] Oct, [facility] [address] [id number] [address] [place] [address], [place] [address] Oct, [facility] [address] [id number] [address] [place] [address], [place] [address] Oct, [facility] [address] [id number] [address] [place] [address] Oct, [facility] [address] [id number] [address] [place] [address], [place] [address] Sep, [facility] [address] [id number] [address] [place] [address], [place] [address] Sep, [facility] [address] [id number] [address] [place] [address], [place] [address] Sep, [facility] [address] [id number] [address] [place] [address], [place] [address] Sep, [facility] [address] [id number] [address] [place] [address], [place] [address] Sep, [facility] [address] [id number] [address] [place] [address], [place] [address] Sep, [facility] [address] [id number] [address] [place] [address], [place] [address] Sep, [facility] [address] [id number] [address] [place] [address], [place] [address] Sep, [facility] [address] [id number] [address] [place] [address], [place] [address] Sep, [facility] [address] [id number] [address] [place] [address], [place] [address] Sep, [facility] [address] [id number] [address] [place] [address], [place] [address] Sep, [facility] [address] [id number] [address] [place] [address], [place] [address] Sep, [facility] [address] [id number] [address] [place] [address], [place] [address] Sep, [facility] [address] [id number] [address] [place] [address], [place] [address] Aug, [facility] [address] [id number] [address] [place] [address], [place] [address] Aug, [facility] [address] [id number] [address] [place] [address], [place] [address] 24 Aug, 2013 [facility] [address] [id number] [address] [place] [address], [place] [address] 24 Aug, 2013 [facility] [address] [id number] [address] [place] [address], [place] [address] 17 Aug, 2013 [facility] [address] [id number] [address] [place] [address], [place] [address] 17 Aug, 2013 [facility] [address] [id number] [address] [place] [address], [place] [address] 16 Aug, 2013 [facility] [address] [id number] [address] [place] [address], [place] [address] 16 Aug, 2013 [facility] [address] [id number] [address] [place] [address], [place] [address] Aug, [facility] [address] [id number] [address] [place] [address], [place] [address] Aug, [facility] [address] [id number] [address] [place] [address], [place] [address] Aug, [facility] [address] [id number] [address] [place] [address], [place] [address] Aug, [facility] [address] [id number] [address] [place] [address], [place] [address] Aug, [facility] [address] [id number] [address] [place] [address], [place] [address] Aug, [facility] [address] [id number] [address] [place] [address], [place] [address] Jul, [facility] [address] [id number] [address] [place] [address], [place] [address] Jul, [facility] [address] [id number] [address] [place] [address], [place] [address] 18 Jul, 2013 [facility] [address] [id number] [address] [place] [address], [place] [address] 18 Jul, 2013 [facility] [address] [id number] [address] [place] [address], [place] [address] 14 Jul, 2013 [facility] [address] [id number] [address] [place] [address], [place] [address] 14 Jul, 2013 [facility] [address] [id number] [address] [place] [address], [place] [address] 14 Jul, 2013 [facility] [address] [id number] [address] [place] [address] 14 Jul, 2013 [facility] [address] [id number] [address] [place] [address], [place] [address] 07 Jul, 2013 [facility] [address] [id number] [address] [place] [address] 07 Jul, 2013 [facility] [address] [id number] [address] [place] [address], [place] [address] 06 Jul, 2013 [facility] [address] [id number] [address] [place] [address] 06 Jul, 2013 [facility] [address] [id number] [address] [place] [address] 05 Jul, 2013 [facility] [address] [id number] [address] [place] [address] 05 Jul, 2013 [facility] [address] [id number] [address] [place] [id number] 23 Jun, 2013 [facility] [address] [id number] [address] [place] [id number] 23 Jun, 2013 [facility] [address] [id number] [address] [place] [address] 15 Jun, 2013 [facility] [address] [id number] [address] [place] [address] 15 Jun, 2013 [facility] [address] [id number] [address] [place] [address] 14 Jun, 2013 [facility] [address] [id number] [facility] [address] 24 Sep, 2012 [facility] [address] [id number] [address] [place] [address], [place] [address] 20 Sep, 2012 [facility] [address] [id number] [address] [place] [address], [place] [address] 20 Sep, 2012 [facility] [address] [id number] [address] [place] [address], [place] [address] 20 Sep, 2012 [facility] [address] [id number] [address] [place] [address], [place] [address] 19 Sep, 2012 [facility] [address] [id number] [address] [place] [address], [place] [address] 13 May, 2012 [facility] [address] [id number] [address] [place] [address], [place] [address] 12 May, 2012 [facility] [address] [id number] [address] [place] [address], [place] [address] 12 May, 2012 [facility] [address] [id number] [address] [place] [address], [place] [address] 11 Sep, 2012 [facility] [address] [id number] [address] [place] [address], [place] [address] 11 May, 2012 [facility] [address] [id number] [address] [place] [address], [place] [address] 11 Sep, 2012 [facility] [address] [id number] [address] [place] [address], [place] [address] 09 Sep, 2012 [facility] [address] [id number] [address] [place] [address], [place] [address] 05 Sep, 2012 [facility] [address] [id number] [address] [place] [address], [place] [address] 04 Sep, 2012 [facility] [address] [id number] [address] [place] [address], [place] [address] 03 Sep, 2012 [facility] [address] [id number] [address] [place] [address], [place] [address] Apr, [facility] [address] [id number] [address] [place] [address], [place] [address] Apr, [facility] [address] [id number] [address] [place] [address], [place] [address] Apr, [facility] [address] [id number] [address] [place] [address], [place] [address] Apr, [facility] [address] [id number] [address] [place] [address], [place] [address] Apr, [facility] [address] [id number] [address] [place] [address], [place] [address] Apr, [facility] [address] [id number] [address] [place] [address], [place] [address] Apr, [facility] [address] [id number] [address] [place] [address], [place] [address] Apr, [facility] [address] [id number] [address] [place] [address], [place] [address] Apr, [facility] [address] [id number] [address] [place] [address], [place] [address] Mar, [facility] [address] [id number] [address] [place] [address], [place] [address] Mar, [facility] [address] [id number] [address] [place] [address], [place] [address] Mar, [facility] [address] [id number] [address] [place] [address], [place] [address] Mar, [facility] [address] [id number] [address] [place] [address], [place] [address] Mar, [facility] [address] [id number] [address] [place] [address], [place] [address] Mar, [facility] [address] [id number] [address] [place] [address], [place] [address] Mar, [facility] [address] [id number] [address] [place] [address], [place] [address] Mar, [facility] [address] [id number] [address] [place] [address], [place] [address] Mar, [facility] [address] [id number] [address] [place] [address], [place] [address] Mar, [facility] [address] [id number] [address] [place] [address], [place] [address] Mar, [facility] [address] [id number] [address] [place] [address], [place] [address] Feb, [facility] [address] [id number] [address] [place] [address], [place] [address] Feb, [facility] [address] [id number] [address] [place] [address], [place] [address] Feb, [facility] [address] [id number] [address] [place] [address], [place] [address] Feb, [facility] [address] [id number] [address] [place] [address], [place] [address] Feb, [facility] [address] [id number] [address] [place] [address], [place] [address] Feb, [facility] [address] [id number] [address] [place] [address], [place] [address] Feb, [facility] [address] [id number] [address] [place] [address], [place] [address] Feb, [facility] [address] [id number] [address] [place] [address], [place] [address] Feb, [facility] [address] [id number] [address] [place] [address], [place] [address] January, [facility] [address] [id number] [address] [place] [address], [place] [address] January, [facility] [address] [id number] [address] [place] [address], [place] [address] January, [facility] [address] [id number] [address] [place] [address], [place] [address] January, [facility] [address] [id number] [address] [place] [address], [place] [address] January, [facility] [address] [id number] [address] [place] [address], [place] [address] January, [facility] [address] [id number] [address] [place] [address], [place] [address] January, [facility] [address] [id number] [address] [place] [address], [place] [address] January, [facility] [address] [id number] [address] [place] [address], [place] [address] January, [facility] [address] [id number] [address] [place] [address], [place] [address] January, [facility] [address] [id number] [address] [place] [address], [place] [address] January, [facility] [address] [id number] [address] [place] [address], [place] [address] January, [facility] [address] [id number] [address] [place] [address], [place] [address] January, [facility] [address] [id number] [address] [place] [address], [place] [address] January, [facility] [address] [id number] [address] [place] [address], [place] [address] January, [facility] [address] [id number] [address] [place] [address], [place] [address] January, [facility] [address] [id number] [address] [place] [address], [place] [address] January, [facility] [address] [id number] [address] [place] [address], [place] [address] January, [facility] [address] [id number] [address] [place] [address], [place] [address] January, [facility] [address] [id number] [address] [place] [address], [place] [address] January, [facility] [address] [id number] [address] [place] [address], [place] [address] January, [facility] [address] [id number] [address] [place] [address], [place] [address] January, [facility] [address] [id number] [address] [place] [address], [place] [address] January, [facility] [address] [id number] [address] [place] [address], [place] [address] Dec, [facility] [address] [id number] [address] [place] [address], [place] [address] Dec, [facility] [address] [id number] [address] [place] [address], [place] [address] Dec, [facility] [address] [id number] [address] [place] [address], [place] [address] Dec, [facility] [address] [id number] [address] [place] [address], [place] [address] Dec, [facility] [address] [id number] [address] [place] [address], [place] [address] Nov, [facility] [address] [id number] [address] [place] [address], [place] [address] Oct, [facility] [address] [id number] [address] [place] [address], [place] [address] Oct, [facility] [address] [id number] [address] [place] [address], [place] [address] Oct, [facility] [address] [id number] [address] [place] [address], [place] [address] Oct, [facility] [address] [id number] [address] [place] [address], [place] [address] Oct, [facility] [address] [id number] [address] [place] [address], [place] [address] Sep, [facility] [address] [id number] [address] [place] [address], [place] [address] Sep, [facility] [address] [id number] [address] [place] [address], [place] [address] Sep, [facility] [address] [id number] [address] [place] [address], [place] [address] Aug, [facility] [address] [id number] [address] [place] [address], [place] [address] Aug, [facility] [address] [id number] [address] [place] [address], [place] [address] Aug, [facility] [address] [id number] [address] [place] [address], [place] [address] Aug, [facility] [address] [id number] [address] [place] [address], [place] [address] Jul, [facility] [address] [id number] [address] [place] [address], [place] [address] Jul, [facility] [address] [id number] [address] [place] [address], [place] [address] Jul, [facility] [address] [id number] [address] [place] [address], [place] [address] Jul, [facility] [address] [id number] [address] [place] [address], [place] [address] Jul, [facility] [address] [id number] [address] [place] [address], [place] [address] Jul, [facility] [address] [id number] [address] [place] [address], [place] [address] Jun, [facility] [address] [id number] [address] [place] [address], [place] [address] Jun, [facility] [address] [id number] [address] [place] [address], [place] [address] Jun, [facility] [address] [id number] [address] [place] [address], [place] [address] Jun, [facility] [address] [id number] [address] [place] [address], [place] [address] Jun, [facility] [address] [id number] [address] [place] [address], [place] [address] Jun, [facility] [address] [id number] [address] [place] [address], [place] [address] Jun, [facility] [address] [id number] [address] [place] [address], [place] [address] Jun, [facility] [address] [id number] [address] [place] [address], [place] [address] Jun, [facility] [address] [id number] [address] [place] [address], [place] [address] Jun, [facility] [address] [id number] [address] [place] [address], [place] [address] 17 May, 2012 [facility] [address] [address] [id number] [address] [place] [address], [place] [address] 08 May, 2012 [facility] [address] [id number] [address] [place] [address], [place] [address] 06 May, 2012 [facility] [address] [id number] [address] [place] [address], [place] [address] 30 Apr, 2012 [facility] [address] [id number] [address] [place] [address], [place] [address] 29 Apr, 2012 [facility] [address] [id number] [address] [place] [address], [place] [address] 14 Apr, 2012 [facility] [address] [id number] [address] [place] [address], [place] [address] Apr, [facility] [address] [id number] [address] [place] [address], [place] [address] Apr, [facility] [address] [id number] [address] [place] [id number] Apr, [facility] [address] [id number] [address] [place] [address], [place] [address] Apr, [facility] [address] [id number] [address] [place] [address], [place] [address] Apr, [facility] [address] [id number] [address] [place] [address], [place] [address] Apr, [facility] [address] [id number] [address] [place] [address], [place] [address] Mar, [facility] [address] [id number] [address] [place] [address], [place] [address] Mar, [facility] [address] [id number] [address] [place] [address], [place] [address] Mar, [facility] [address] [id number] [address] [place] [address], [place] [address] Mar, [facility] [address] [id number] [address] [place] [address], [place] [address] Feb, [facility] [address] [id number] [address] [place] [address], [place] [address] Feb, [facility] [address] [id number] [address] [place] [address], [place] [address] Feb, [facility] [address] [id number] [address] [place] [address], [place] [address] January, [facility] [address] [id number] [address] [place] [address], [place] [address] January, [facility] [address] [id number] [address] [place] [address], [place] [address] January, [facility] [address] [id number] [address] [place] [address], [place] [address] January, [facility] [address] [id number] [address] [place] [address], [place] [address] January, [facility] [address] [id number] [address] [place] [address], [place] [address] 30 Dec, 2011 [facility] [address] [id number] [address] [place] [address], [place] [address] Dec, [facility] [address] [id number] [address] [place] [address], [place] [address] 16 Dec, 2011 [facility] [address] [id number] [address] [place] [address], [place] [address] Oct, [facility] [address] [id number] [address] [place] [address], [place] [address] Oct, [facility] [address] [id number] [address] [place] [address], [place] [address] Oct, [facility] [address] [id number] [address] [place] [address], [place] [address] Sep, [facility] [address] [id number] [address] [place] [address], [place] [address] Sep, [facility] [address] [id number] [address] [place] [address], [place] [address] Aug, [facility] [address] [id number] [address] [place] [address], [place] [address] Jul, [facility] [address] [id number] [address] [place] [address], [place] [address] Jul, [facility] [address] [id number] [address] [place] [address], [place] [address] Mar, [facility] [address] [id number] [address] [place] [address], [place] [address] 10 Aug, 2010 [facility] [address] [id number] [address] [place] [address], [place] [address] 10 Jul, 2010 [facility] [address] [id number] [address] [place] [address], [place] [address] 04 Jul, 2010 [facility] [address] [id number] [address] [place] [address], [place] [address] 04 Jul, 2010 [facility] [address] [id number] [address] [place] [address], [place] [address] 04 Jul, 2010 [facility] [address] [id number] [address] [place] [id number] 14 Jun, 2010 [facility] [address] [id number] [address] [place] [address], [place] [address] 12 Jun, 2010 [facility] [address] [id number] [address] [place] [id number] 17 Apr, 2010 [facility] [address] [id number] [address] [place] [address], [place] [address] Aug, [facility] [address] [id number] [address] [place] [id number] Jul, [facility] [address] [id number] [address] [place] [id number] Jul, [facility] [address] [id number] [address] [place] [id number] Jul, [facility] [address] [id number] [address] [place] [id number] 23 Jun, 2009 [facility] [address] [id number] [address] [place] [id number] 10 May, 2009 [facility] [address] [id number] [address] [place] [id number] 14 Dec, 2008 [facility] [address] [id number] [address] [place] [id number] Nov, [facility] [address] [id number] [address] [place] [id number] 10 Oct, 2008 [facility] [address] [id number] [address] [place] [id number] 05 Aug, 2008 [facility] [address] [id number] [address] [place] [id number] Aug, [facility] [address] [id number] [address] [place] [address] 28 Jun, 2008 IMMUNIZATIONS No Known Immunizations SOCIAL HISTORY Never Assessed REASON FOR VISIT PLAN OF CARE VITAL SIGNS Height 66 in 2013-05-11 Weight 299.28 lbs 2013-05-11 Temperature 99.2 degrees Fahrenheit 2013-05-11 Heart Rate 98 bpm 2013-05-11 Respiratory Rate 32 2013-05-11 Blood pressure systolic 132 mmHg 2013-05-11 Blood pressure diastolic 80 mmHg 2013-05-11 MEDICATIONS Unknown Medications RESULTS No Results PROCEDURES Procedure Date Ordered Result Body Site MEASURE BLOOD OXYGEN LEVEL May 11, 2013 ASSAY THYROID STIM HORMONE May 11, 2013 ASSAY OF FREE THYROXINE May 11, 2013 ASSAY OF MAGNESIUM May 11, 2013 BASIC METABOLIC PANEL May 11, 2013 VENIPUNCT, ROUTINE* May 11, 2013 INSTRUCTIONS MEDICATIONS ADMINISTERED No Known Medications [...] x 3 day s 04/2012 [facility]ization History [facility] [place]- Right wrist injury 03/29/2018
--- OUTSIDE RECORDS SUMMARY | 2020-04-09 00:12 | XMS REPORT ---
Author Author Kateryna Turnre Doctor Organization [facility] Address Unknown Phone Unavailable Care Team Providers Care Senior Linux Administrator Name Role Phone Migration, Doctor Unavailable Unavailable PROBLEMS Type Condition ICD9-CM Code [id number] Code Onset Dates Condition S tatus SNOMED Code Problem Irregular menses N92.6 Active 801 06343 Problem Migraine with aura and without status migrainosu s, not intractable G43.109 Active 0576051 Problem Uncontrolled type 2 diabetes mellitus with hyperglycemia E11.65 Active 283493796 Problem Morbid obesity due to excess calories E66.01 Active 316262090 Problem RLS (restless legs syndrome) G25.81 A ctive 34354987 Problem Morbid obesity E66.01 Active 36660 6002 ALLERGIES No Information ENCOUNTERS Encounter Location Date Diagnosis [facility] [address] [facility] [id number] [address] [place] [address] January, [facility] [address] [facility] [id number] [address] [place] [address] Dec, [facility] [address] [facility] [id number] [address] [place] [address] Dec, [facility] [address] [facility] [id number] [address] [place] [address] Dec, Uncontrolled type 2 diabetes mellitus with hyperglycemia E11.65 [facility] [address] [facility] [id number] [address] [place] [address] 07 Dec, 2019 [facility] [address] [id number] [address] [place] [address] Dec, [facility] [address] [facility] [id number] [address] [place] [address] Dec, [facility] [address] [facility] [id number] [address] [place] [address] Nov, [facility] [address] [id number] [address] [place] [address] 28 Nov, 2019 [facility] [address] [id number] [address] [place] [id number] 03 Nov, 2019 [facility] [address] [facility] [id number] [address] [place] [id number] 02 Nov, 2019 RLS (restless legs syndrome) G25.81 [facility] [address] [id number] [address] [place] [address] 15 Oct, 2019 [facility] [address] [facility] [id number] [address] [place] [address] 09 Oct, 2019 Influenza J11.1 [facility] [address] [facility] [id number] [address] [place] [address] 16 Sep, 2019 [facility] [address] [facility] [id number] [address] [place] [address] 14 Sep, 2019 [facility] [address] [facility] [id number] [address] [place] [address] 14 Sep, 2019 [facility] [address] [id number] [address] [place] [address] 13 Sep, 2019 [facility] [address] [facility] [id number] [address] [place] [address] 10 Sep, 2019 Pneumonia of left lower lobe due to infectious organism J18.9 and Migraine with aura and without status migrainosus, not intractable G43.109 [facility] [address] [facility] [id number] [address] [place] [address] 10 Sep, 2019 [facility] [address] [facility] [id number] [address] [place] [address] 10 Sep, 2019 [facility] [address] [facility] [id number] [address] [place] [address] 08 Sep, 2019 [facility] [address] [facility] [id number] [address] [place] [address] 08 Sep, 2019 [facility] [address] [id number] [address] [place] [address] 08 Sep, 2019 Pneumonia of left lower lobe due to infectious organism J18.9 and Migraine with aura and without status migrainosus, not intractable G43.109 [facility] [address] [id number] [address] [place] [address] Aug, Irregular menses N92.6 ; Wel l woman exam Z01.419 ; Pelvic cramping R10.2 and Left breast lump N63.20 [facility] [address] [id number] [address] [place] [address] Aug, [facility] [address] [facility] [id number] [address] [place] [address] 17 Aug, 2019 Well woman exam Z01.419 ; Le ft breast lump N63.20 ; Irregular menses N92.6 ; Encounter for immunization Z23 ; Pelvic cramping R10.2 and Screening for cervical cancer Z12.4 [facility] [address] [facility] [id number] [address] [place] [address] Aug, [facility] [address] [id number] [address] [place] [address] Aug, [facility] [address] [facility] [id number] [address] [place] [address] Aug, [facility] [address] [id number] [address] [place] [address] Jul, [facility] [address] [facility] [id number] [address] [place] [address] Jun, [facility] [address] [id number] [address] [place] [address] Jun, [facility] [address] [facility] [id number] [address] [place] [address] 14 Jun, 2019 [facility] [address] [facility] [id number] [address] [place] [address] Jun, BMI 50.0-59.9, adult Z68.43 [facility] [address] [place] [id number] [address] [place] [address] Jun, [facility] [address] [place] [id number] [place] [address] May, Acute non-recurrent sinusiti s, unspecified location J01.90 ; Diarrhea, unspecified R19.7 ; Vomiting, unspecified R11.10 and Morbid obesity E66.01 [place] [address] [address] Apr, [place] [address] [address] Apr, Anemia due to other cause, n ot classified D64.89 and D-dimer, elevated R79.89 [place] [address] [address] Apr, [place] [address] [address] Apr, [place] [address] [address] Mar, Anemia due to other cause, n ot classified D64.89 and D-dimer, elevated R79.89 [place] [address] [address] Mar, Leg edema, right R60.0 ; Hig h risk medication use Z79.899 and Morbid obesity E66.01 [facility] [address] [place] [id number] [address] [place] [address] Mar, BMI 50.0-59.9, adult Z68.43 [place] [address] [address] Mar, [place] [address] [address] January, Uncontrolled type 2 diabetes mellitus with hyperglycemia E11.65 ; RLS (restless legs syndrome) G25.81 and Morbid obesity E66.01 [facility] [address] [id number] [address] [place] [address] 15 Oct, 2018 Lipoma of right lower extrem ity D17.23 [facility] [address] [id number] [address] [place] [address] 05 Oct, 2018 Lipoma of right lower extrem ity D17.23 [facility] [address] [id number] [address] [place] [address] Sep, [facility] [address] [id number] [address] [place] [address] Sep, [facility] [address] [id number] [address] [place] [address] Sep, [facility] [address] [facility] [id number] [address] [place] [address] Sep, [facility] [address] [facility] [id number] [address] [place] [address] Sep, [facility] [address] [facility] [id number] [address] [place] [address] Aug, Uncontrolled type 2 diabetes mellitus with hyperglycemia E11.65 ; Morbid obesity due to excess calories E66.01 ; Lipoma of torso D17.1 and BMI 50.0-59.9, adult Z68.43 [facility] [address] [facility] [id number] [address] [place] [address] Jun, Encounter for immunization Z 23 [facility] [address] [id number] [address] [place] [address] Jul, [facility] [address] [facility] [id number] [address] [place] [address] Jun, Encounter for immunization Z 23 [facility] [address] [id number] [address] [place] [address] May, [facility] [address] [facility] [id number] [address] [place] [address] Jun, Encounter for immunization Z 23 [facility] [address] [id number] [address] [place] [address], [place] [address] 29 May, 2015 [facility] [address] [id number] [address] [place] [address], [place] [address] May, [facility] [address] [id number] [address] [place] [address], [place] [address] Apr, [facility] [address] [id number] [address] [place] [address], [place] [address] Feb, [facility] [address] [id number] [address] [place] [address], [place] [address] Feb, [facility] [address] [id number] [address] [place] [address], [place] [address] Feb, [facility] [address] [id number] [address] [place] [address], [place] [address] January, [facility] [address] [id number] [address] [place] [address], [place] [address] January, [facility] [address] [id number] [address] [place] [address], [place] [address] Dec, [facility] [address] [id number] [address] [place] [address], [place] [address] Dec, [facility] [address] [id number] [address] [place] [address] Nov, [facility] [address] [id number] [address] [place] [address] Nov, [facility] [address] [id number] [address] [place] [address] Nov, [facility] [address] [id number] [address] [place] [address] Nov, [facility] [address] [id number] [address] [place] [address], [place] [address] Nov, [facility] [address] [id number] [address] [place] [address], [place] [address] Nov, [facility] [address] [id number] [address] [place] [address], [place] [address] Nov, [facility] [address] [id number] [address] [place] [address], [place] [address] 18 Oct, 2014 [facility] [address] [id number] [address] [place] [address], [place] [address] Oct, [facility] [address] [id number] [address] [place] [address], [place] [address] Oct, [facility] [address] [id number] [address] [place] [address], [place] [address] Oct, [facility] [address] [id number] [address] [place] [address], [place] [address] Oct, [facility] [address] [id number] [address] [place] [address], [place] [address] Sep, [facility] [address] [id number] [address] [place] [address], [place] [address] Sep, [facility] [address] [id number] [address] [place] [address], [place] [address] Sep, [facility] [address] [id number] [address] [place] [address], [place] [address] Sep, [facility] [address] [id number] [address] [place] [address], [place] [address] Sep, [facility] [address] [id number] [address] [place] [address], [place] [address] Sep, [facility] [address] [id number] [address] [place] [address], [place] [address] Sep, [facility] [address] [id number] [address] [place] [address], [place] [address] Sep, [facility] [address] [id number] [address] [place] [address], [place] [address] Sep, [facility] [address] [id number] [address] [place] [address], [place] [address] Sep, [facility] [address] [id number] [address] [place] [address], [place] [address] Aug, [facility] [address] [id number] [address] [place] [address], [place] [address] Aug, [facility] [address] [id number] [address] [place] [address], [place] [address] Aug, [facility] [address] [id number] [address] [place] [address], [place] [address] Aug, [facility] [address] [id number] [address] [place] [address], [place] [address] Aug, [facility] [address] [id number] [address] [place] [address], [place] [address] Aug, [facility] [address] [id number] [address] [place] [address], [place] [address] Aug, [facility] [address] [id number] [address] [place] [address], [place] [address] Aug, [facility] [address] [id number] [address] [place] [address], [place] [address] Aug, [facility] [address] [id number] [address] [place] [address], [place] [address] Aug, [facility] [address] [id number] [address] [place] [address], [place] [address] Aug, [facility] [address] [id number] [address] [place] [address], [place] [address] Aug, [facility] [address] [id number] [address] [place] [address], [place] [address] Aug, [facility] [address] [id number] [address] [place] [address], [place] [address] Aug, [facility] [address] [id number] [address] [place] [address], [place] [address] 17 Aug, 2014 [facility] [address] [id number] [address] [place] [address], [place] [address] 17 Aug, 2014 [facility] [address] [id number] [address] [place] [address], [place] [address] 16 Aug, 2014 [facility] [address] [id number] [address] [place] [address], [place] [address] 16 Aug, 2014 [facility] [address] [id number] [address] [place] [address], [place] [address] Aug, [facility] [address] [id number] [address] [place] [address], [place] [address] Aug, [facility] [address] [id number] [address] [place] [address], [place] [address] Aug, [facility] [address] [id number] [address] [place] [address], [place] [address] Aug, [facility] [address] [id number] [address] [place] [address], [place] [address] 05 Aug, 2014 [facility] [address] [id number] [address] [place] [address], [place] [address] 05 Aug, 2014 [facility] [address] [id number] [address] [place] [address], [place] [address] Jul, [facility] [address] [id number] [address] [place] [address], [place] [address] Jul, [facility] [address] [id number] [address] [place] [address], [place] [address] Jun, [facility] [address] [id number] [address] [place] [address], [place] [address] Jun, [facility] [address] [id number] [address] [place] [address], [place] [address] Jun, [facility] [address] [id number] [address] [place] [address], [place] [address] Jun, [facility] [address] [id number] [address] [place] [address], [place] [address] 15 Jun, 2014 [facility] [address] [id number] [address] [place] [address], [place] [address] 15 Jun, 2014 [facility] [address] [id number] [address] [place] [address], [place] [address] 14 Jun, 2014 [facility] [address] [id number] [address] [place] [address], [place] [address] 14 Jun, 2014 [facility] [address] [id number] [address] [place] [address], [place] [address] 13 Jun, 2014 [facility] [address] [id number] [address] [place] [address], [place] [address] 13 Jun, 2014 [facility] [address] [id number] [address] [place] [address], [place] [address] 13 Jun, 2014 [facility] [address] [id number] [address] [place] [address], [place] [address] Jun, [facility] [address] [id number] [address] [place] [address], [place] [address] 06 Jun, 2014 [facility] [address] [id number] [address] [place] [address], [place] [address] 06 Jun, 2014 [facility] [address] [id number] [address] [place] [address] 26 May, 2013 [facility] [address] [id number] [address] [place] [address] 26 May, 2013 [facility] [address] [id number] [address] [place] [address], [place] [address] 22 May, 2013 [facility] [address] [id number] [address] [place] [address], [place] [address] 22 May, 2013 [facility] [address] [id number] [address] [place] [address], [place] [address] 04 May, 2013 [facility] [address] [id number] [address] [place] [address] May, [facility] [address] [id number] [address] [place] [address], [place] [address] May, [facility] [address] [id number] [address] [place] [address], [place] [address] May, [facility] [address] [id number] [address] [place] [address], [place] [address] Apr, [facility] [address] [id number] [address] [place] [address], [place] [address] Apr, [facility] [address] [id number] [address] [place] [address], [place] [address] Apr, [facility] [address] [id number] [address] [place] [address], [place] [address] Apr, [facility] [address] [id number] [address] [place] [address], [place] [address] Apr, [facility] [address] [id number] [address] [place] [address], [place] [address] Apr, [facility] [address] [id number] [address] [place] [address], [place] [address] Apr, [facility] [address] [id number] [address] [place] [address], [place] [address] Apr, [facility] [address] [id number] [address] [place] [address], [place] [address] Apr, [facility] [address] [id number] [address] [place] [address], [place] [address] Mar, [facility] [address] [id number] [address] [place] [address], [place] [address] Mar, [facility] [address] [id number] [address] [place] [address], [place] [address] Mar, [facility] [address] [id number] [address] [place] [address], [place] [address] Feb, [facility] [address] [id number] [address] [place] [address] 30 Feb, 2014 [facility] [address] [id number] [address] [place] [address] Feb, [facility] [address] [id number] [address] [place] [address] Feb, [facility] [address] [id number] [address] [place] [address] Feb, [facility] [address] [id number] [address] [place] [address] 17 Feb, 2014 [facility] [address] [id number] [address] [place] [address], [place] [address] Feb, [facility] [address] [id number] [address] [place] [address], [place] [address] Feb, [facility] [address] [id number] [address] [place] [address], [place] [address] Feb, [facility] [address] [id number] [address] [place] [address], [place] [address] Feb, [facility] [address] [id number] [address] [place] [address], [place] [address] Feb, [facility] [address] [id number] [address] [place] [address], [place] [address] Feb, [facility] [address] [id number] [address] [place] [address], [place] [address] Feb, [facility] [address] [id number] [address] [place] [address], [place] [address] Feb, [facility] [address] [id number] [address] [place] [address], [place] [address] Feb, [facility] [address] [id number] [address] [place] [address], [place] [address] Feb, [facility] [address] [id number] [address] [place] [address], [place] [address] January, [facility] [address] [id number] [address] [place] [address] January, [facility] [address] [id number] [address] [place] [address], [place] [address] January, [facility] [address] [id number] [address] [place] [address], [place] [address] January, [facility] [address] [id number] [address] [place] [address], [place] [address] January, [facility] [address] [id number] [address] [place] [address], [place] [address] January, [facility] [address] [id number] [address] [place] [address], [place] [address] January, [facility] [address] [id number] [address] [place] [address], [place] [address] January, [facility] [address] [id number] [address] [place] [address], [place] [address] January, [facility] [address] [id number] [address] [place] [address], [place] [address] January, [facility] [address] [id number] [address] [place] [address], [place] [address] January, [facility] [address] [id number] [address] [place] [address], [place] [address] January, [facility] [address] [id number] [address] [place] [address], [place] [address] January, [facility] [address] [id number] [address] [place] [address], [place] [address] January, [facility] [address] [id number] [address] [place] [address], [place] [address] January, [facility] [address] [id number] [address] [place] [address], [place] [address] January, [facility] [address] [id number] [address] [place] [address], [place] [address] January, [facility] [address] [id number] [address] [place] [address], [place] [address] January, [facility] [address] [id number] [address] [place] [address], [place] [address] January, [facility] [address] [id number] [address] [place] [address], [place] [address] January, [facility] [address] [id number] [address] [place] [address], [place] [address] January, [facility] [address] [id number] [address] [place] [address], [place] [address] January, [facility] [address] [id number] [address] [place] [address], [place] [address] January, [facility] [address] [id number] [address] [place] [address], [place] [address] January, [facility] [address] [id number] [address] [place] [address], [place] [address] January, [facility] [address] [id number] [address] [place] [address], [place] [address] January, [facility] [address] [id number] [address] [place] [address], [place] [address] Dec, [facility] [address] [id number] [address] [place] [address], [place] [address] Dec, [facility] [address] [id number] [address] [place] [address], [place] [address] Dec, [facility] [address] [id number] [address] [place] [address], [place] [address] Dec, [facility] [address] [id number] [address] [place] [address], [place] [address] Dec, [facility] [address] [id number] [address] [place] [address], [place] [address] Dec, [facility] [address] [id number] [address] [place] [address] Dec, [facility] [address] [id number] [address] [place] [address], [place] [address] Dec, [facility] [address] [id number] [address] [place] [address], [place] [address] Dec, [facility] [address] [id number] [address] [place] [address], [place] [address] Dec, [facility] [address] [id number] [address] [place] [address], [place] [address] Dec, [facility] [address] [id number] [address] [place] [address], [place] [address] Dec, [facility] [address] [id number] [address] [place] [address], [place] [address] Dec, [facility] [address] [id number] [address] [place] [address], [place] [address] Dec, [facility] [address] [id number] [address] [place] [address], [place] [address] Dec, [facility] [address] [id number] [address] [place] [address], [place] [address] Dec, [facility] [address] [id number] [address] [place] [address], [place] [address] Dec, [facility] [address] [id number] [address] [place] [address], [place] [address] Dec, [facility] [address] [id number] [address] [place] [address], [place] [address] Dec, [facility] [address] [id number] [address] [place] [address], [place] [address] Dec, [facility] [address] [id number] [address] [place] [address], [place] [address] Dec, [facility] [address] [id number] [address] [place] [address], [place] [address] 07 Dec, 2013 [facility] [address] [id number] [facility] [place] [address] 31 Nov, 2013 [facility] [address] [id number] [address] [place] [address], [place] [address] 31 Nov, 2013 [facility] [address] [id number] [facility] [place] [address] Nov, [facility] [address] [id number] [address] [place] [address], [place] [address] Nov, [facility] [address] [id number] [address] [place] [address] 24 Nov, 2013 [facility] [address] [id number] [address] [place] [address], [place] [address] 24 Nov, 2013 [facility] [address] [id number] [address] [place] [address], [place] [address] Nov, [facility] [address] [id number] [address] [place] [address], [place] [address] 22 Nov, 2013 [facility] [address] [id number] [address] [place] [address], [place] [address] 18 Nov, 2013 [facility] [address] [id number] [address] [place] [address], [place] [address] 18 Nov, 2013 [facility] [address] [id number] [address] [place] [address], [place] [address] 18 Nov, 2013 [facility] [address] [id number] [address] [place] [address], [place] [address] 18 Nov, 2013 [facility] [address] [id number] [address] [place] [address], [place] [address] 14 Nov, 2013 [facility] [address] [id number] [address] [place] [address], [place] [address] 14 Nov, 2013 [facility] [address] [id number] [address] [place] [address], [place] [address] 06 Nov, 2013 [facility] [address] [id number] [address] [place] [address], [place] [address] Nov, [facility] [address] [id number] [address] [place] [address], [place] [address] Oct, [facility] [address] [id number] [address] [place] [address], [place] [address] Oct, [facility] [address] [id number] [address] [place] [address], [place] [address] Oct, [facility] [address] [id number] [address] [place] [address], [place] [address] Oct, [facility] [address] [id number] [address] [place] [address], [place] [address] Oct, [facility] [address] [id number] [address] [place] [address], [place] [address] Oct, [facility] [address] [id number] [address] [place] [address], [place] [address] Oct, [facility] [address] [id number] [address] [place] [address], [place] [address] Oct, [facility] [address] [id number] [address] [place] [address], [place] [address] Oct, [facility] [address] [id number] [address] [place] [address], [place] [address] Oct, [facility] [address] [id number] [address] [place] [address] Oct, [facility] [address] [id number] [address] [place] [address], [place] [address] Oct, [facility] [address] [id number] [address] [place] [address], [place] [address] Oct, [facility] [address] [id number] [address] [place] [address], [place] [address] Oct, [facility] [address] [id number] [address] [place] [address] Oct, [facility] [address] [id number] [address] [place] [address], [place] [address] Sep, [facility] [address] [id number] [address] [place] [address], [place] [address] Sep, [facility] [address] [id number] [address] [place] [address], [place] [address] Sep, [facility] [address] [id number] [address] [place] [address], [place] [address] Sep, [facility] [address] [id number] [address] [place] [address], [place] [address] Sep, [facility] [address] [id number] [address] [place] [address], [place] [address] Sep, [facility] [address] [id number] [address] [place] [address], [place] [address] Sep, [facility] [address] [id number] [address] [place] [address], [place] [address] Sep, [facility] [address] [id number] [address] [place] [address], [place] [address] Sep, [facility] [address] [id number] [address] [place] [address], [place] [address] Sep, [facility] [address] [id number] [address] [place] [address], [place] [address] Sep, [facility] [address] [id number] [address] [place] [address], [place] [address] Sep, [facility] [address] [id number] [address] [place] [address], [place] [address] Sep, [facility] [address] [id number] [address] [place] [address], [place] [address] Aug, [facility] [address] [id number] [address] [place] [address], [place] [address] Aug, [facility] [address] [id number] [address] [place] [address], [place] [address] 24 Aug, 2013 [facility] [address] [id number] [address] [place] [address], [place] [address] 24 Aug, 2013 [facility] [address] [id number] [address] [place] [address], [place] [address] 17 Aug, 2013 [facility] [address] [id number] [address] [place] [address], [place] [address] 17 Aug, 2013 [facility] [address] [id number] [address] [place] [address], [place] [address] 16 Aug, 2013 [facility] [address] [id number] [address] [place] [address], [place] [address] 16 Aug, 2013 [facility] [address] [id number] [address] [place] [address], [place] [address] Aug, [facility] [address] [id number] [address] [place] [address], [place] [address] Aug, [facility] [address] [id number] [address] [place] [address], [place] [address] Aug, [facility] [address] [id number] [address] [place] [address], [place] [address] Aug, [facility] [address] [id number] [address] [place] [address], [place] [address] Aug, [facility] [address] [id number] [address] [place] [address], [place] [address] Aug, [facility] [address] [id number] [address] [place] [address], [place] [address] Jul, [facility] [address] [id number] [address] [place] [address], [place] [address] Jul, [facility] [address] [id number] [address] [place] [address], [place] [address] 18 Jul, 2013 [facility] [address] [id number] [address] [place] [address], [place] [address] 18 Jul, 2013 [facility] [address] [id number] [address] [place] [address], [place] [address] 14 Jul, 2013 [facility] [address] [id number] [address] [place] [address], [place] [address] 14 Jul, 2013 [facility] [address] [id number] [address] [place] [address], [place] [address] 14 Jul, 2013 [facility] [address] [id number] [address] [place] [address] 14 Jul, 2013 [facility] [address] [id number] [address] [place] [address], [place] [address] 07 Jul, 2013 [facility] [address] [id number] [address] [place] [address] 07 Jul, 2013 [facility] [address] [id number] [address] [place] [address], [place] [address] 06 Jul, 2013 [facility] [address] [id number] [address] [place] [address] 06 Jul, 2013 [facility] [address] [id number] [address] [place] [address] 05 Jul, 2013 [facility] [address] [id number] [address] [place] [address] 05 Jul, 2013 [facility] [address] [id number] [address] [place] [address] 23 Jun, 2013 [facility] [address] [id number] [address] [place] [address] 23 Jun, 2013 [facility] [address] [id number] [address] [place] [address] 15 Jun, 2013 [facility] [address] [id number] [address] [place] [address] 15 Jun, 2013 [facility] [address] [id number] [address] [place] [address] 14 Jun, 2013 [facility] [address] [id number] [facility] [place] [address] 24 Sep, 2012 [facility] [address] [id number] [address] [place] [address], [place] [address] 20 Sep, 2012 [facility] [address] [id number] [address] [place] [address], [place] [address] 20 Sep, 2012 [facility] [address] [id number] [address] [place] [address], [place] [address] 20 Sep, 2012 [facility] [address] [id number] [address] [place] [address], [place] [address] 19 Sep, 2012 [facility] [address] [id number] [address] [place] [address], [place] [address] 13 May, 2012 [facility] [address] [id number] [address] [place] [address], [place] [address] 12 May, 2012 [facility] [address] [id number] [address] [place] [address], [place] [address] 12 May, 2012 [facility] [address] [id number] [address] [place] [address], [place] [address] 11 Sep, 2012 [facility] [address] [id number] [address] [place] [address], [place] [address] 11 May, 2012 [facility] [address] [id number] [address] [place] [address], [place] [address] 11 Sep, 2012 [facility] [address] [id number] [address] [place] [address], [place] [address] 09 Sep, 2012 [facility] [address] [id number] [address] [place] [address], [place] [address] 05 Sep, 2012 [facility] [address] [id number] [address] [place] [address], [place] [address] 04 Sep, 2012 [facility] [address] [id number] [address] [place] [address], [place] [address] 03 Sep, 2012 [facility] [address] [id number] [address] [place] [address], [place] [address] Apr, [facility] [address] [id number] [address] [place] [address], [place] [address] Apr, [facility] [address] [id number] [address] [place] [address], [place] [address] Apr, [facility] [address] [id number] [address] [place] [address], [place] [address] Apr, [facility] [address] [id number] [address] [place] [address], [place] [address] Apr, [facility] [address] [id number] [address] [place] [address], [place] [address] Apr, [facility] [address] [id number] [address] [place] [address], [place] [address] Apr, [facility] [address] [id number] [address] [place] [address], [place] [address] Apr, [facility] [address] [id number] [address] [place] [address], [place] [address] Apr, [facility] [address] [id number] [address] [place] [address], [place] [address] Mar, [facility] [address] [id number] [address] [place] [address], [place] [address] Mar, [facility] [address] [id number] [address] [place] [address], [place] [address] Mar, [facility] [address] [id number] [address] [place] [address], [place] [address] Mar, [facility] [address] [id number] [address] [place] [address], [place] [address] Mar, [facility] [address] [id number] [address] [place] [address], [place] [address] Mar, [facility] [address] [id number] [address] [place] [address], [place] [address] Mar, [facility] [address] [id number] [address] [place] [address], [place] [address] Mar, [facility] [address] [id number] [address] [place] [address], [place] [address] Mar, [facility] [address] [id number] [address] [place] [address], [place] [address] Mar, [facility] [address] [id number] [address] [place] [address], [place] [address] Mar, [facility] [address] [id number] [address] [place] [address], [place] [address] Feb, [facility] [address] [id number] [address] [place] [address], [place] [address] Feb, [facility] [address] [id number] [address] [place] [address], [place] [address] Feb, [facility] [address] [id number] [address] [place] [address], [place] [address] Feb, [facility] [address] [id number] [address] [place] [address], [place] [address] Feb, [facility] [address] [id number] [address] [place] [address], [place] [address] Feb, [facility] [address] [id number] [address] [place] [address], [place] [address] Feb, [facility] [address] [id number] [address] [place] [address], [place] [address] Feb, [facility] [address] [id number] [address] [place] [address], [place] [address] Feb, [facility] [address] [id number] [address] [place] [address], [place] [address] January, [facility] [address] [id number] [address] [place] [address], [place] [address] January, [facility] [address] [id number] [address] [place] [address], [place] [address] January, [facility] [address] [id number] [address] [place] [address], [place] [address] January, [facility] [address] [id number] [address] [place] [address], [place] [address] January, [facility] [address] [id number] [address] [place] [address], [place] [address] January, [facility] [address] [id number] [address] [place] [address], [place] [address] January, [facility] [address] [id number] [address] [place] [address], [place] [address] January, [facility] [address] [id number] [address] [place] [address], [place] [address] January, [facility] [address] [id number] [address] [place] [address], [place] [address] January, [facility] [address] [id number] [address] [place] [address], [place] [address] January, [facility] [address] [id number] [address] [place] [address], [place] [address] January, [facility] [address] [id number] [address] [place] [address], [place] [address] January, [facility] [address] [id number] [address] [place] [address], [place] [address] January, [facility] [address] [id number] [address] [place] [address], [place] [address] January, [facility] [address] [id number] [address] [place] [address], [place] [address] January, [facility] [address] [id number] [address] [place] [address], [place] [address] January, [facility] [address] [id number] [address] [place] [address], [place] [address] January, [facility] [address] [id number] [address] [place] [address], [place] [address] January, [facility] [address] [id number] [address] [place] [address], [place] [address] January, [facility] [address] [id number] [address] [place] [address], [place] [address] January, [facility] [address] [id number] [address] [place] [address], [place] [address] January, [facility] [address] [id number] [address] [place] [address], [place] [address] January, [facility] [address] [id number] [address] [place] [address], [place] [address] Dec, [facility] [address] [id number] [address] [place] [address], [place] [address] Dec, [facility] [address] [id number] [address] [place] [address], [place] [address] Dec, [facility] [address] [id number] [address] [place] [address], [place] [address] Dec, [facility] [address] [id number] [address] [place] [address], [place] [address] Dec, [facility] [address] [id number] [address] [place] [address], [place] [address] Nov, [facility] [address] [id number] [address] [place] [address], [place] [address] Oct, [facility] [address] [id number] [address] [place] [address], [place] [address] Oct, [facility] [address] [id number] [address] [place] [address], [place] [address] Oct, [facility] [address] [id number] [address] [place] [address], [place] [address] Oct, [facility] [address] [id number] [address] [place] [address], [place] [address] Oct, [facility] [address] [id number] [address] [place] [address], [place] [address] Sep, [facility] [address] [id number] [address] [place] [address], [place] [address] Sep, [facility] [address] [id number] [address] [place] [address], [place] [address] Sep, [facility] [address] [id number] [address] [place] [address], [place] [address] Aug, [facility] [address] [id number] [address] [place] [address], [place] [address] Aug, [facility] [address] [id number] [address] [place] [address], [place] [address] Aug, [facility] [address] [id number] [address] [place] [address], [place] [address] Aug, [facility] [address] [id number] [address] [place] [address], [place] [address] Jul, [facility] [address] [id number] [address] [place] [address], [place] [address] Jul, [facility] [address] [id number] [address] [place] [address], [place] [address] Jul, [facility] [address] [id number] [address] [place] [address], [place] [address] Jul, [facility] [address] [id number] [address] [place] [address], [place] [address] Jul, [facility] [address] [id number] [address] [place] [address], [place] [address] Jul, [facility] [address] [id number] [address] [place] [address], [place] [address] Jun, [facility] [address] [id number] [address] [place] [address], [place] [address] Jun, [facility] [address] [id number] [address] [place] [address], [place] [address] Jun, [facility] [address] [id number] [address] [place] [address], [place] [address] Jun, [facility] [address] [id number] [address] [place] [address], [place] [address] Jun, [facility] [address] [id number] [address] [place] [address], [place] [address] Jun, [facility] [address] [id number] [address] [place] [address], [place] [address] Jun, [facility] [address] [id number] [address] [place] [address], [place] [address] Jun, [facility] [address] [id number] [address] [place] [address], [place] [address] Jun, [facility] [address] [id number] [address] [place] [address], [place] [address] Jun, [facility] [address] [id number] [address] [place] [address], [place] [address] 17 May, 2012 [facility] [address] [id number] [address] [place] [address], [place] [address] 08 May, 2012 [facility] [address] [id number] [address] [place] [address], [place] [address] 06 May, 2012 [facility] [address] [id number] [address] [place] [address], [place] [address] 30 Apr, 2012 [facility] [address] [id number] [address] [place] [address], [place] [address] 29 Apr, 2012 [facility] [address] [id number] [address] [place] [address], [place] [address] 14 Apr, 2012 [facility] [address] [id number] [address] [place] [address], [place] [address] Apr, [facility] [address] [id number] [address] [place] [address], [place] [address] Apr, [facility] [address] [id number] [address] [place] [address] Apr, [facility] [address] [id number] [address] [place] [address], [place] [address] Apr, [facility] [address] [id number] [address] [place] [address], [place] [address] Apr, [facility] [address] [id number] [address] [place] [address], [place] [address] Apr, [facility] [address] [id number] [address] [place] [address], [place] [address] Mar, [facility] [address] [id number] [address] [place] [address], [place] [address] Mar, [facility] [address] [id number] [address] [place] [address], [place] [address] Mar, [facility] [address] [id number] [address] [place] [address], [place] [address] Mar, [facility] [address] [id number] [address] [place] [address], [place] [address] Feb, [facility] [address] [id number] [address] [place] [address], [place] [address] Feb, [facility] [address] [id number] [address] [place] [address], [place] [address] Feb, [facility] [address] [id number] [address] [place] [address], [place] [address] January, [facility] [address] [id number] [address] [place] [address], [place] [address] January, [facility] [address] [id number] [address] [place] [address], [place] [address] January, [facility] [address] [id number] [address] [place] [address], [place] [address] January, [facility] [address] [id number] [address] [place] [address], [place] [address] January, [facility] [address] [id number] [address] [place] [address], [place] [address] 30 Dec, 2011 [facility] [address] [id number] [address] [place] [address], [place] [address] Dec, [facility] [address] [id number] [address] [place] [address], [place] [address] 16 Dec, 2011 [facility] [address] [id number] [address] [place] [address], [place] [address] Oct, [facility] [address] [id number] [address] [place] [address], [place] [address] Oct, [facility] [address] [id number] [address] [place] [address], [place] [address] Oct, [facility] [address] [id number] [address] [place] [address], [place] [address] Sep, [facility] [address] [id number] [address] [place] [address], [place] [address] Sep, [facility] [address] [id number] [address] [place] [address], [place] [address] Aug, [facility] [address] [id number] [address] [place] [address], [place] [address] Jul, [facility] [address] [id number] [address] [place] [address], [place] [address] Jul, [facility] [address] [id number] [address] [place] [address], [place] [address] Mar, [facility] [address] [id number] [address] [place] [address], [place] [address] 10 Aug, 2010 [facility] [address] [id number] [address] [place] [address], [place] [address] 10 Jul, 2010 [facility] [address] [id number] [address] [place] [address], [place] [address] 04 Jul, 2010 [facility] [address] [id number] [address] [place] [address], [place] [address] 04 Jul, 2010 [facility] [address] [id number] [address] [place] [address], [place] [address] 04 Jul, 2010 [facility] [address] [id number] [address] [place] [address] 14 Jun, 2010 [facility] [address] [id number] [address] [place] [address], [place] [address] 12 Jun, 2010 [facility] [address] [id number] [address] [place] [address] 17 Apr, 2010 [facility] [address] [id number] [address] [place] [address], [place] [address] Aug, [facility] [address] [id number] [address] [place] [address] Jul, [facility] [address] [id number] [address] [place] [address] Jul, [facility] [address] [id number] [address] [place] [address] Jul, [facility] [address] [id number] [address] [place] [address] 23 Jun, 2009 [facility] [address] [id number] [address] [place] [address] 10 May, 2009 [facility] [address] [id number] [address] [place] [address] 14 Dec, 2008 [facility] [address] [id number] [address] [place] [address] Nov, [facility] [address] [id number] [address] [place] [address] 10 Oct, 2008 [facility] [address] [id number] [address] [place] [address] 05 Aug, 2008 [facility] [address] [id number] [address] [place] [address] Aug, [facility] [address] [id number] [address] [place] [address] 28 Jun, 2008 IMMUNIZATIONS No Known Immunizations [...] x 3 day s 04/2012 Hospitalization History [facility] [place]- Right wrist injury 03/29/2018
--- OUTSIDE RECORDS SUMMARY | 2020-04-09 00:12 | XMS REPORT ---
Author Author Kateryna LOPEZ [facility] Address [address] [place] [address] Care Team Providers Care Industrial Therapist Name Role Phone JESSE LOPEZ Unavailable PROBLEMS Type Condition ICD9-CM Code TKU67-TO Code Onset Dates Condition S tatus SNOMED Code Problem Irregular menses N92.6 Active 801 15070 Problem Migraine with aura and without status migrainosu s, not intractable G43.109 Active 1957813 Problem Uncontrolled type 2 diabetes mellitus with hyperglycemia E11.65 Active 017537307 Problem Morbid obesity due to excess calories E66.01 Active 147291972 Problem RLS (restless legs syndrome) G25.81 A ctive 38484782 Problem Morbid obesity E66.01 Active 68784 6002 ALLERGIES No Information ENCOUNTERS Encounter Location Date Diagnosis [facility] [address] [facility] [id number] [address] [place] [id number] January, [facility] [address] [facility] [id number] [address] [place] [id number] Dec, [facility] [address] [facility] [id number] [address] [place] [id number] Dec, [facility] [address] [id number] [address] [place] [id number] Dec, Uncontrolled type 2 diabetes mellitus with hyperglycemia E11.65 [facility] [address] [facility] [id number] [address] [place] [id number] Dec, [facility] [address] [facility] [id number] [address] [place] [id number] Dec, [facility] [address] [facility] [id number] [address] [place] [id number] Dec, [facility] [address] [id number] [address] [place] [id number] 30 Nov, 2019 [facility] [address] [id number] [address] [place] [id number] 28 Nov, 2019 [facility] [address] [id number] [address] [place] [id number] 03 Nov, 2019 [facility] [address] [id number] [address] [place] [id number] 02 Nov, 2019 RLS (restless legs syndrome) G25.81 [facility] [address] [id number] [address] [place] [id number] 15 Oct, 2019 [facility] [address] [facility] [id number] [address] [place] [id number] 09 Oct, 2019 Influenza J11.1 [facility] [address] [facility] [id number] [address] [place] [id number] 16 Sep, 2019 [facility] [address] [id number] [address] [place] [id number] 14 Sep, 2019 [facility] [address] [facility] [id number] [address] [place] [id number] 14 Sep, 2019 [facility] [address] [facility] [id number] [address] [place] [id number] 13 Sep, 2019 [facility] [address] [facility] [id number] [address] [place] [id number] 10 Sep, 2019 Pneumonia of left lower lobe due to infectious organism J18.9 and Migraine with aura and without status migrainosus, not intractable G43.109 [facility] [address] [id number] [address] [place] [id number] 10 Sep, 2019 [facility] [address] [facility] [id number] [address] [place] [id number] 10 Sep, 2019 [facility] [address] [facility] [id number] [address] [place] [id number] 08 Sep, 2019 [facility] [address] [facility] [id number] [address] [place] [id number] Sep, [facility] [address] [id number] [address] [place] [id number] Sep, Pneumonia of left lower lobe due to infectious organism J18.9 and Migraine with aura and without status migrainosus, not intractable G43.109 [facility] [address] [id number] [address] [place] [id number] Aug, Irregular menses N92.6 ; Wel l woman exam Z01.419 ; Pelvic cramping R10.2 and Left breast lump N63.20 [facility] [address] [id number] [address] [place] [id number] Aug, [facility] [address] [id number] [address] [place] [id number] Aug, Well woman exam Z01.419 ; Le ft breast lump N63.20 ; Irregular menses N92.6 ; Encounter for immunization Z23 ; Pelvic cramping R10.2 and Screening for cervical cancer Z12.4 [facility] [address] [id number] [address] [place] [id number] Aug, [facility] [address] [id number] [address] [place] [id number] Aug, [facility] [address] [id number] [address] [place] [id number] Aug, [facility] [address] [id number] [address] [place] [id number] Jul, [facility] [address] [id number] [address] [place] [id number] Jun, [facility] [address] [id number] [address] [place] [id number] Jun, [facility] [address] [id number] [address] [place] [id number] Jun, [facility] [address] [id number] [address] [place] [id number] Jun, BMI 50.0-59.9, adult Z68.43 [facility] [address] [facility] [id number] [address] [place] [id number] Jun, [facility] [address] [facility] [id number] [address] [place] [id number] May, Acute non-recurrent sinusiti s, unspecified location J01.90 ; Diarrhea, unspecified R19.7 ; Vomiting, unspecified R11.10 and Morbid obesity E66.01 [facility] [address] [facility] [id number] [address] [place] [id number] Apr, [place] [address] [place] [id number] [place] [id number] Apr, Anemia due to other cause, n ot classified D64.89 and D-dimer, elevated R79.89 [facility] [address] [place] [id number] [address] [place] [id number] Apr, [facility] [address] [facility] [id number] [address] [place] [id number] Apr, [facility] [address] [place] [id number] [address] [place] [id number] Mar, Anemia due to other cause, n ot classified D64.89 and D-dimer, elevated R79.89 [place] [address] [place] [id number] [address] [place] [id number] Mar, Leg edema, right R60.0 ; Hig h risk medication use Z79.899 and Morbid obesity E66.01 [facility] [address] [facility] [id number] [address] [place] [id number] Mar, BMI 50.0-59.9, adult Z68.43 [facility] [address] [place] [id number] [address] [place] [id number] Mar, [facility] [address] [place] [id number] [address] [place] [id number] January, Uncontrolled type 2 diabetes mellitus with hyperglycemia E11.65 ; RLS (restless legs syndrome) G25.81 and Morbid obesity E66.01 [facility] [address] [id number] [address] [place] [id number] 15 Oct, 2018 Lipoma of right lower extrem ity D17.23 [facility] [address] [facility] [id number] [address] [place] [id number] Oct, Lipoma of right lower extrem ity D17.23 [facility] [address] [id number] [address] [place] [id number] Sep, [facility] [address] [facility] [id number] [address] [place] [id number] Sep, [facility] [address] [facility] [id number] [address] [place] [phone] Sep, [facility] [address] [facility] [id number] [address] [place] [id number] Sep, [facility] [address] [facility] [id number] [address] [place] [id number] Sep, [facility] [address] [facility] [id number] [address] [place] [id number] Aug, Uncontrolled type 2 diabetes mellitus with hyperglycemia E11.65 ; Morbid obesity due to excess calories E66.01 ; Lipoma of torso D17.1 and BMI 50.0-59.9, adult Z68.43 [facility] [address] [facility] [id number] [address] [place] [id number] Jun, Encounter for immunization Z 23 [facility] [address] [facility] [id number] [address] [place] [id number] Jul, [place] [address] [place] [id number] [address] [place] [id number] Jun, Encounter for immunization Z 23 [facility] [address] [facility] [id number] [address] [place] [id number] May, [facility] [address] [id number] [address] [place] [address], [place] [address] 16 Jun, 2015 Encounter for immunization Z 23 [facility] [address] [id number] [address] [place] [address], [place] [address] 29 May, 2015 [facility] [address] [id number] [address] [place] [address], [place] [address] 22 May, 2015 [facility] [address] [id number] [address] [place] [address], [place] [address] Apr, [facility] [address] [id number] [address] [place] [address], [place] [address] Feb, [facility] [address] [id number] [address] [place] [address], [place] [address] Feb, [facility] [address] [id number] [address] [place] [address], [place] [address] Feb, [facility] [address] [id number] [address] [place] [address], [place] [address] January, [facility] [address] [id number] [address] [place] [address], [place] [address] January, [facility] [address] [id number] [address] [place] [id number] Dec, [facility] [address] [id number] [address] [place] [id number] Dec, [facility] [address] [id number] [address] [place] [id number] Nov, [facility] [address] [id number] [address] [place] [address], [place] [address] Nov, [facility] [address] [id number] [address] [place] [id number] Nov, [facility] [address] [id number] [address] [place] [id number] Nov, [facility] [address] [id number] [address] [place] [address], [place] [address] Nov, [facility] [address] [id number] [address] [place] [address], [place] [address] Nov, [facility] [address] [id number] [address] [place] [address], [place] [address] Nov, [facility] [address] [id number] [address] [place] [address], [place] [address] Oct, [facility] [address] [id number] [address] [place] [address], [place] [address] Oct, [facility] [address] [id number] [address] [place] [address], [place] [address] Oct, [facility] [address] [id number] [address] [place] [address], [place] [address] Oct, [facility] [address] [id number] [address] [place] [address], [place] [address] Oct, [facility] [address] [id number] [address] [place] [address], [place] [address] Sep, [facility] [address] [id number] [address] [place] [address], [place] [address] Sep, [facility] [address] [id number] [address] [place] [address], [place] [address] Sep, [facility] [address] [id number] [address] [place] [address], [place] [address] Sep, [facility] [address] [id number] [address] [place] [address], [place] [address] Sep, [facility] [address] [id number] [address] [place] [address], [place] [address] Sep, [facility] [address] [id number] [address] [place] [address], [place] [address] Sep, [facility] [address] [id number] [address] [place] [address], [place] [address] Sep, [facility] [address] [id number] [address] [place] [address], [place] [address] Sep, [facility] [address] [id number] [address] [place] [address], [place] [address] Sep, [facility] [address] [id number] [address] [place] [address], [place] [address] Aug, [facility] [address] [id number] [address] [place] [address], [place] [address] Aug, [facility] [address] [id number] [address] [place] [address], [place] [address] Aug, [facility] [address] [id number] [address] [place] [address], [place] [address] Aug, [facility] [address] [id number] [address] [place] [address], [place] [address] Aug, [facility] [address] [id number] [address] [place] [address], [place] [address] Aug, [facility] [address] [id number] [address] [place] [address], [place] [address] Aug, [facility] [address] [id number] [address] [place] [address], [place] [address] Aug, [facility] [address] [id number] [address] [place] [address], [place] [address] Aug, [facility] [address] [id number] [address] [place] [address], [place] [address] Aug, [facility] [address] [id number] [address] [place] [address], [place] [address] Aug, [facility] [address] [id number] [address] [place] [address], [place] [address] Aug, [facility] [address] [id number] [address] [place] [address], [place] [address] 18 Aug, 2014 [facility] [address] [id number] [address] [place] [address], [place] [address] 18 Aug, 2014 [facility] [address] [id number] [address] [place] [address], [place] [address] 17 Aug, 2014 [facility] [address] [id number] [address] [place] [address], [place] [address] 17 Aug, 2014 [facility] [address] [id number] [address] [place] [address], [place] [address] 16 Aug, 2014 [facility] [address] [id number] [address] [place] [address], [place] [address] 16 Aug, 2014 [facility] [address] [id number] [address] [place] [address], [place] [address] 12 Aug, 2014 [facility] [address] [id number] [address] [place] [address], [place] [address] Aug, [facility] [address] [id number] [address] [place] [address], [place] [address] 08 Aug, 2014 [facility] [address] [id number] [address] [place] [address], [place] [address] 08 Aug, 2014 [facility] [address] [id number] [address] [place] [address], [place] [address] 05 Aug, 2014 [facility] [address] [id number] [address] [place] [address], [place] [address] 05 Aug, 2014 [facility] [address] [id number] [address] [place] [address], [place] [address] Jul, [facility] [address] [id number] [address] [place] [address], [place] [address] Jul, [facility] [address] [id number] [address] [place] [address], [place] [address] Jun, [facility] [address] [id number] [address] [place] [address], [place] [address] Jun, [facility] [address] [id number] [address] [place] [address], [place] [address] Jun, [facility] [address] [id number] [address] [place] [address], [place] [address] 17 Jun, 2014 [facility] [address] [id number] [address] [place] [address], [place] [address] 15 Jun, 2014 [facility] [address] [id number] [address] [place] [address], [place] [address] 15 Jun, 2014 [facility] [address] [id number] [address] [place] [address], [place] [address] 14 Jun, 2014 [facility] [address] [id number] [address] [place] [address], [place] [address] 14 Jun, 2014 [facility] [address] [id number] [address] [place] [address], [place] [address] 13 Jun, 2014 [facility] [address] [id number] [address] [place] [address], [place] [address] 13 Jun, 2014 [facility] [address] [id number] [address] [place] [address], [place] [address] 13 Jun, 2014 [facility] [address] [id number] [address] [place] [address], [place] [address] 13 Jun, 2014 [facility] [address] [id number] [address] [place] [address], [place] [address] 06 Jun, 2014 [facility] [address] [id number] [address] [place] [address], [place] [address] 06 Jun, 2014 [facility] [address] [id number] [address] [place] [address], [place] [address] 26 May, 2013 [facility] [address] [id number] [address] [place] [address], [place] [address] 26 May, 2013 [facility] [address] [id number] [address] [place] [address], [place] [address] 22 May, 2013 [facility] [address] [id number] [address] [place] [address], [place] [address] 22 May, 2013 [facility] [address] [id number] [address] [place] [address], [place] [address] May, [facility] [address] [id number] [address] [place] [address] May, [facility] [address] [id number] [address] [place] [address], [place] [address] May, [facility] [address] [id number] [address] [place] [address], [place] [address] May, [facility] [address] [id number] [address] [place] [address], [place] [address] Apr, [facility] [address] [id number] [address] [place] [address], [place] [address] Apr, [facility] [address] [id number] [address] [place] [address], [place] [address] Apr, [facility] [address] [id number] [address] [place] [address], [place] [address] Apr, [facility] [address] [id number] [address] [place] [address], [place] [address] Apr, [facility] [address] [id number] [address] [place] [address], [place] [address] Apr, [facility] [address] [id number] [address] [place] [address], [place] [address] Apr, [facility] [address] [id number] [address] [place] [address], [place] [address] Apr, [facility] [address] [id number] [address] [place] [address], [place] [address] Apr, [facility] [address] [id number] [address] [place] [address], [place] [address] Mar, [facility] [address] [id number] [address] [place] [address], [place] [address] Mar, [facility] [address] [id number] [address] [place] [address], [place] [id number] Mar, [facility] [address] [id number] [address] [place] [id number] 30 Feb, 2014 [facility] [address] [id number] [address] [place] [address], [place] [id number] 30 Feb, 2014 [facility] [address] [id number] [address] [place] [id number] 27 Feb, 2014 [facility] [address] [id number] [address] [place] [address], [place] [id number] 27 Feb, 2014 [facility] [address] [id number] [address] [place] [address], [place] [id number] 17 Feb, 2014 [facility] [address] [id number] [address] [place] [address], [place] [id number] 17 Feb, 2014 [facility] [address] [id number] [address] [place] [address], [place] [id number] 16 Feb, 2014 [facility] [address] [id number] [address] [place] [address], [place] [id number] 16 Feb, 2014 [facility] [address] [id number] [address] [place] [address], [place] [id number] 16 Feb, 2014 [facility] [address] [id number] [address] [place] [address], [place] [id number] Feb, [facility] [address] [id number] [address] [place] [address], [place] [id number] Feb, [facility] [address] [id number] [address] [place] [address], [place] [id number] Feb, [facility] [address] [id number] [address] [place] [address], [place] [id number] Feb, [facility] [address] [id number] [address] [place] [address], [place] [id number] Feb, [facility] [address] [id number] [address] [place] [address], [place] [id number] Feb, [facility] [address] [id number] [address] [place] [address], [place] [id number] Feb, [facility] [address] [id number] [address] [place] [address], [place] [id number] January, [facility] [address] [id number] [address] [place] [address], [place] [id number] January, [facility] [address] [id number] [address] [place] [address], [place] [id number] January, [facility] [address] [id number] [address] [place] [address], [place] [id number] January, [facility] [address] [id number] [address] [place] [address], [place] [address] January, [facility] [address] [id number] [address] [place] [address], [place] [id number] January, [facility] [address] [id number] [address] [place] [address], [place] [id number] January, [facility] [address] [id number] [address] [place] [address], [place] [id number] January, [facility] [address] [id number] [address] [place] [address], [place] [id number] January, [facility] [address] [id number] [address] [place] [address], [place] [id number] January, [facility] [address] [id number] [address] [place] [address], [place] [id number] January, [facility] [address] [id number] [address] [place] [address], [place] [id number] January, [facility] [address] [id number] [address] [place] [address], [place] [id number] January, [facility] [address] [id number] [address] [place] [address], [place] [id number] January, [facility] [address] [id number] [address] [place] [address], [place] [id number] January, [facility] [address] [id number] [address] [place] [address], [place] [id number] January, [facility] [address] [id number] [address] [place] [id number] January, [facility] [address] [id number] [address] [place] [address], [place] [address] January, [facility] [address] [id number] [address] [place] [address], [place] [id number] January, [facility] [address] [id number] [address] [place] [address], [place] [id number] January, [facility] [address] [id number] [address] [place] [address], [place] [id number] January, [facility] [address] [id number] [address] [place] [address], [place] [id number] January, [facility] [address] [id number] [address] [place] [address], [place] [address] January, [facility] [address] [id number] [address] [place] [address], [place] [address] January, [facility] [address] [id number] [address] [place] [address], [place] [address] January, [facility] [address] [id number] [address] [place] [address], [place] [address] January, [facility] [address] [id number] [address] [place] [address], [place] [address] Dec, [facility] [address] [id number] [address] [place] [address], [place] [address] Dec, [facility] [address] [id number] [address] [place] [address], [place] [address] Dec, [facility] [address] [id number] [address] [place] [address], [place] [address] Dec, [facility] [address] [id number] [address] [place] [address], [place] [address] Dec, [facility] [address] [id number] [address] [place] [address] Dec, [facility] [address] [id number] [address] [place] [address], [place] [address] Dec, [facility] [address] [id number] [address] [place] [address], [place] [address] Dec, [facility] [address] [id number] [address] [place] [address], [place] [address] Dec, [facility] [address] [id number] [address] [place] [address], [place] [id number] Dec, [facility] [address] [id number] [address] [place] [address], [place] [address] Dec, [facility] [address] [id number] [address] [place] [address], [place] [address] Dec, [facility] [address] [id number] [address] [place] [address], [place] [address] Dec, [facility] [address] [id number] [address] [place] [address], [place] [address] Dec, [facility] [address] [id number] [address] [place] [address], [place] [address] Dec, [facility] [address] [id number] [address] [place] [address], [place] [address] Dec, [facility] [address] [id number] [address] [place] [address], [place] [address] Dec, [facility] [address] [id number] [address] [place] [address], [place] [address] Dec, [facility] [address] [id number] [address] [place] [address], [place] [address] Dec, [facility] [address] [id number] [address] [place] [address], [place] [address] Dec, [facility] [address] [id number] [address] [place] [address], [place] [address] Dec, [facility] [address] [id number] [address] [place] [address] Dec, [facility] [address] [id number] [address] [place] [address] 31 Nov, 2013 [facility] [address] [id number] [address] [place] [address], [place] [address] 31 Nov, 2013 [facility] [address] [id number] [address] [place] [address], [place] [address] Nov, [facility] [address] [id number] [address] [place] [address], [place] [address] Nov, [facility] [address] [id number] [address] [place] [address], [place] [address] 24 Nov, 2013 [facility] [address] [id number] [address] [place] [address], [place] [address] 24 Nov, 2013 [facility] [address] [id number] [address] [place] [address], [place] [address] Nov, [facility] [address] [id number] [address] [place] [address], [place] [address] 22 Nov, 2013 [facility] [address] [id number] [address] [place] [address], [place] [id number] 18 Nov, 2013 [facility] [address] [id number] [address] [place] [address], [place] [address] 18 Nov, 2013 [facility] [address] [id number] [address] [place] [address], [place] [address] 18 Nov, 2013 [facility] [address] [id number] [address] [place] [address], [place] [address] 18 Nov, 2013 [facility] [address] [id number] [address] [place] [address], [place] [address] 14 Nov, 2013 [facility] [address] [id number] [address] [place] [address], [place] [address] 14 Nov, 2013 [facility] [address] [id number] [address] [place] [address], [place] [address] Nov, [facility] [address] [id number] [address] [place] [address], [place] [address] Nov, [facility] [address] [id number] [address] [place] [address], [place] [address] Oct, [facility] [address] [id number] [address] [place] [address], [place] [address] Oct, [facility] [address] [id number] [address] [place] [address], [place] [address] Oct, [facility] [address] [id number] [address] [place] [address], [place] [address] Oct, [facility] [address] [id number] [address] [place] [address], [place] [address] Oct, [facility] [address] [id number] [address] [place] [address], [place] [address] Oct, [facility] [address] [id number] [address] [place] [address], [place] [address] Oct, [facility] [address] [id number] [address] [place] [address], [place] [address] Oct, [facility] [address] [id number] [address] [place] [address], [place] [address] Oct, [facility] [address] [id number] [address] [place] [address], [place] [address] 17 Oct, 2013 [facility] [address] [id number] [address] [place] [address], [place] [address] 14 Oct, 2013 [facility] [address] [id number] [address] [place] [address], [place] [address] 14 Oct, 2013 [facility] [address] [id number] [address] [place] [address], [place] [address] 04 Oct, 2013 [facility] [address] [id number] [address] [place] [address], [place] [address] 04 Oct, 2013 [facility] [address] [id number] [address] [place] [address], [place] [address] Oct, [facility] [address] [id number] [address] [place] [address], [place] [address] Sep, [facility] [address] [id number] [address] [place] [address], [place] [address] 17 Sep, 2013 [facility] [address] [id number] [address] [place] [address], [place] [address] Sep, [facility] [address] [id number] [address] [place] [address], [place] [address] Sep, [facility] [address] [id number] [address] [place] [address], [place] [address] Sep, [facility] [address] [id number] [address] [place] [address], [place] [address] Sep, [facility] [address] [id number] [address] [place] [address], [place] [address] Sep, [facility] [address] [id number] [address] [place] [address], [place] [address] Sep, [facility] [address] [id number] [address] [place] [address], [place] [address] Sep, [facility] [address] [id number] [address] [place] [address], [place] [address] Sep, [facility] [address] [id number] [address] [place] [address], [place] [address] Sep, [facility] [address] [id number] [address] [place] [address], [place] [address] Sep, [facility] [address] [id number] [address] [place] [address], [place] [address] Sep, [facility] [address] [id number] [address] [place] [address], [place] [address] Aug, [facility] [address] [id number] [address] [place] [address], [place] [address] 30 Aug, 2013 [facility] [address] [id number] [address] [place] [address], [place] [id number] 24 Aug, 2013 [facility] [address] [id number] [address] [place] [address], [place] [address] 24 Aug, 2013 [facility] [address] [id number] [address] [place] [address], [place] [address] 17 Aug, 2013 [facility] [address] [id number] [address] [place] [address], [place] [address] 17 Aug, 2013 [facility] [address] [id number] [address] [place] [address], [place] [address] 16 Aug, 2013 [facility] [address] [id number] [address] [place] [address], [place] [address] 16 Aug, 2013 [facility] [address] [id number] [address] [place] [address], [place] [address] 12 Aug, 2013 [facility] [address] [id number] [address] [place] [address], [place] [address] 12 Aug, 2013 [facility] [address] [id number] [address] [place] [address], [place] [address] 10 Aug, 2013 [facility] [address] [id number] [address] [place] [address], [place] [address] 10 Aug, 2013 [facility] [address] [id number] [address] [place] [address], [place] [address] 02 Aug, 2013 [facility] [address] [id number] [address] [place] [address], [place] [address] Aug, [facility] [address] [id number] [address] [place] [address], [place] [address] Jul, [facility] [address] [id number] [address] [place] [address], [place] [address] Jul, [facility] [address] [id number] [address] [place] [address], [place] [address] 18 Jul, 2013 [facility] [address] [id number] [address] [place] [address], [place] [address] 18 Jul, 2013 [facility] [address] [id number] [address] [place] [address], [place] [address] 14 Jul, 2013 [facility] [address] [id number] [address] [place] [address], [place] [address] 14 Jul, 2013 [facility] [address] [id number] [address] [place] [address], [place] [address] 14 Jul, 2013 [facility] [address] [id number] [address] [place] [address], [place] [address] 14 Jul, 2013 [facility] [address] [id number] [address] [place] [address], [place] [address] 07 Jul, 2013 [facility] [address] [id number] [address] [place] [address], [place] [address] 07 Jul, 2013 [facility] [address] [id number] [address] [place] [id number] 06 Jul, 2013 [facility] [address] [id number] [address] [place] [address], [place] [address] 06 Jul, 2013 [facility] [address] [id number] [address] [place] [id number] 05 Jul, 2013 [facility] [address] [id number] [address] [place] [id number] 05 Jul, 2013 [facility] [address] [id number] [address] [place] [id number] Jun, [facility] [address] [id number] [address] [place] [address] Jun, [facility] [address] [id number] [address] [place] [id number] 15 Jun, 2013 [facility] [address] [id number] [address] [place] [id number] 15 Jun, 2013 [facility] [address] [id number] [address] [place] [id number] 14 Jun, 2012 [facility] [address] [id number] [address] [place] [address], [place] [address] 24 Sep, 2012 [facility] [address] [id number] [address] [place] [address], [place] [address] 20 Sep, 2012 [facility] [address] [id number] [address] [place] [address], [place] [address] 20 Sep, 2012 [facility] [address] [id number] [address] [place] [address], [place] [address] 20 Sep, 2012 [facility] [address] [id number] [address] [place] [address], [place] [address] 19 Sep, 2012 [facility] [address] [id number] [address] [place] [address], [place] [address] 13 May, [address] [facility] [address] [id number] [address] [place] [address], [place] [address] 12 Sep, [address] [facility] [address] [id number] [address] [place] [address], [place] [address] 12 May, [address] [facility] [address] [id number] [address] [place] [address], [place] [address] 11 Sep, [address] [facility] [address] [id number] [address] [place] [address], [place] [address] 11 Sep, [address] [facility] [address] [id number] [address] [place] [address], [place] [address] 11 Sep, 2012 [facility] [address] [id number] [address] [place] [address], [place] [address] 09 Sep, 2012 [facility] [address] [id number] [address] [place] [address], [place] [address] 05 Sep, 2012 [facility] [address] [id number] [address] [place] [address], [place] [address] 04 Sep, 2012 [facility] [address] [id number] [address] [place] [address], [place] [address] 03 Sep, [address] [facility] [address] [id number] [address] [place] [address] Apr, [facility] [address] [id number] [address] [id number] Apr, [facility] [address] [id number] [address] [place] [address] Apr, [facility] [address] [id number] [address] [place] [address], [place] [address] Apr, [facility] [address] [id number] [address] [place] [address], [place] [address] Apr, [facility] [address] [id number] [address] [place] [address], [place] [address] Apr, [facility] [address] [id number] [address] [place] [address], [place] [address] Apr, [facility] [address] [id number] [address] [place] [address], [place] [address] Apr, [facility] [address] [id number] [address] [place] [address], [place] [address] Apr, [facility] [address] [id number] [address] [place] [address], [place] [address] Mar, [facility] [address] [id number] [address] [place] [address], [place] [address] Mar, [facility] [address] [id number] [address] [place] [address], [place] [address] Mar, [facility] [address] [id number] [address] [place] [address], [place] [address] Mar, [facility] [address] [id number] [address] [place] [address], [place] [address] Mar, [facility] [address] [id number] [address] [place] [address], [place] [address] Mar, [facility] [address] [id number] [address] [place] [address], [place] [address] Mar, [facility] [address] [id number] [address] [place] [address], [place] [address] Mar, [facility] [address] [id number] [address] [place] [address], [place] [address] Mar, [facility] [address] [id number] [address] [place] [address], [place] [address] Mar, [facility] [address] [id number] [address] [place] [address], [place] [address] Mar, [facility] [address] [id number] [address] [place] [address], [place] [address] Feb, [facility] [address] [id number] [address] [place] [address], [place] [address] Feb, [facility] [address] [id number] [address] [place] [address], [place] [address] Feb, [facility] [address] [id number] [address] [place] [address], [place] [address] Feb, [facility] [address] [id number] [address] [place] [address], [place] [address] Feb, [facility] [address] [id number] [address] [place] [address], [place] [address] Feb, [facility] [address] [id number] [address] [place] [address], [place] [address] Feb, [facility] [address] [id number] [address] [place] [address], [place] [address] Feb, [facility] [address] [id number] [address] [place] [address], [place] [id number] Feb, [facility] [address] [id number] [address] [place] [address], [place] [address] January, [facility] [address] [id number] [address] [place] [address], [place] [address] January, [facility] [address] [id number] [address] [place] [address], [place] [address] January, [facility] [address] [id number] [address] [place] [address], [place] [id number] January, [facility] [address] [id number] [address] [place] [address], [place] [address] January, [facility] [address] [id number] [address] [place] [address], [place] [address] January, [facility] [address] [id number] [address] [place] [address], [place] [address] January, [facility] [address] [id number] [address] [place] [address], [place] [address] January, [facility] [address] [id number] [address] [place] [address], [place] [address] January, [facility] [address] [id number] [address] [place] [address], [place] [address] January, [facility] [address] [id number] [address] [place] [address], [place] [id number] January, [facility] [address] [id number] [address] [place] [address], [place] [address] January, [facility] [address] [id number] [address] [place] [address], [place] [address] January, [facility] [address] [id number] [address] [place] [address], [place] [id number] January, [facility] [address] [id number] [address] [place] [address], [place] [id number] January, [facility] [address] [id number] [address] [place] [address], [place] [id number] January, [facility] [address] [id number] [address] [place] [address], [place] [id number] January, [facility] [address] [id number] [address] [place] [address], [place] [id number] January, [facility] [address] [id number] [address] [place] [address], [place] [id number] January, [facility] [address] [id number] [address] [place] [address], [place] [id number] January, [facility] [address] [id number] [address] [place] [address], [place] [id number] January, [facility] [address] [id number] [address] [place] [address], [place] [id number] January, [facility] [address] [id number] [address] [place] [address], [place] [id number] January, [facility] [address] [id number] [address] [place] [address], [place] [address] Dec, [facility] [address] [id number] [address] [place] [address], [place] [id number] Dec, [facility] [address] [id number] [address] [place] [address], [place] [id number] Dec, [facility] [address] [id number] [address] [place] [address], [place] [address] Dec, [facility] [address] [id number] [address] [place] [address], [place] [address] Dec, [facility] [address] [id number] [address] [place] [address], [place] [address] Nov, [facility] [address] [id number] [address] [place] [address], [place] [address] Oct, [facility] [address] [id number] [address] [place] [address], [place] [id number] Oct, [facility] [address] [id number] [address] [place] [address], [place] [id number] Oct, [facility] [address] [id number] [address] [place] [address], [place] [id number] Oct, [facility] [address] [id number] [address] [place] [id number] Oct, [facility] [address] [id number] [address] [place] [address], [place] [id number] Sep, [facility] [address] [id number] [address] [place] [address], [place] [address] Sep, [facility] [address] [id number] [address] [place] [address], [place] [id number] Sep, [facility] [address] [id number] [address] [place] [address], [place] [id number] Aug, [facility] [address] [id number] [address] [place] [address], [place] [address] Aug, [facility] [address] [id number] [address] [place] [address], [place] [address] Aug, [facility] [address] [id number] [address] [place] [address], [place] [id number] Aug, [facility] [address] [id number] [address] [place] [address], [place] [address] Jul, [facility] [address] [id number] [address] [place] [address], [place] [id number] Jul, [facility] [address] [id number] [address] [place] [address], [place] [address] Jul, [facility] [address] [id number] [address] [place] [address], [place] [id number] Jul, [facility] [address] [id number] [address] [place] [id number] Jul, [facility] [address] [id number] [address] [place] [address], [place] [id number] Jul, [facility] [address] [id number] [address] [place] [address], [place] [address] Jun, [facility] [address] [id number] [address] [place] [address], [place] [address] Jun, [facility] [address] [id number] [address] [place] [address], [place] [id number] 10 Jun, 2012 [facility] [address] [id number] [address] [place] [address], [place] [address] Jun, [facility] [address] [id number] [address] [place] [address], [place] [id number] Jun, [facility] [address] [id number] [address] [place] [address], [place] [address] Jun, [facility] [address] [id number] [address] [place] [address], [place] [address] Jun, [facility] [address] [id number] [address] [place] [address], [place] [id number] Jun, [facility] [address] [id number] [address] [place] [address], [place] [address] Jun, [facility] [facility] [address] [id number] [address] [place] [address], [place] [id number] Jun, [facility] [address] [id number] [address] [place] [address], [place] [id number] 17 May, 2012 [facility] [address] [id number] [address] [place] [address], [place] [id number] 08 May, 2012 [facility] [address] [id number] [address] [place] [address], [place] [id number] 06 May, 2012 [facility] [address] [id number] [address] [place] [address], [place] [id number] 30 Apr, 2012 [facility] [address] [id number] [address] [place] [address], [place] [id number] 29 Apr, 2012 [facility] [address] [id number] [address] [place] [address], [place] [id number] 14 Apr, 2012 [facility] [address] [id number] [address] [place] [address], [place] [id number] Apr, [facility] [address] [id number] [address] [place] [address], [place] [id number] Apr, [facility] [address] [id number] [address] [place] [address], [place] [id number] Apr, [facility] [address] [id number] [address] [place] [address], [place] [id number] Apr, [facility] [address] [id number] [address] [place] [address], [place] [id number] Apr, [facility] [address] [id number] [address] [place] [address], [place] [id number] Apr, [facility] [address] [id number] [address] [place] [address], [place] [id number] Mar, [facility] [address] [id number] [address] [place] [address], [place] [id number] Mar, [facility] [address] [id number] [address] [place] [address], [place] [id number] Mar, [facility] [address] [id number] [address] [place] [address], [place] [id number] Mar, [facility] [address] [id number] [address] [place] [address], [place] [id number] Feb, [facility] [address] [id number] [address] [place] [address], [place] [id number] Feb, [facility] [address] [id number] [address] [place] [address], [place] [id number] Feb, [facility] [address] [id number] [address] [place] [address], [place] [id number] January, [facility] [address] [id number] [address] [place] [address], [place] [address] January, [facility] [address] [id number] [address] [place] [address], [place] [address] January, [facility] [address] [id number] [address] [place] [address], [place] [id number] January, [facility] [address] [id number] [address] [place] [address], [place] [id number] 15 Jan, 2012 [facility] [address] [id number] [address] [place] [address], [place] [id number] 30 Dec, 2011 [facility] [address] [id number] [address] [place] [address], [place] [id number] Dec, [facility] [address] [id number] [address] [place] [address], [place] [id number] 16 Dec, 2011 [facility] [address] [id number] [address] [place] [address], [place] [id number] Oct, [facility] [address] [id number] [address] [place] [address], [place] [id number] 24 Oct, 2011 [facility] [address] [id number] [address] [place] [address], [place] [id number] Oct, [facility] [address] [id number] [address] [place] [address], [place] [id number] Sep, [facility] [address] [id number] [address] [place] [address], [place] [id number] Sep, [facility] [address] [id number] [address] [place] [address], [place] [id number] Aug, [facility] [address] [id number] [address] [place] [address], [place] [id number] 08 Jul, [address] [facility] [address] [id number] [address] [place] [address], [place] [id number] 08 Jul, 2011 [facility] [address] [id number] [address] [place] [address], [place] [address] Mar, [facility] [address] [id number] [address] [place] [address], [place] [id number] 10 Aug, 2010 [facility] [address] [id number] [address] [place] [address], [place] [id number] 10 Jul, [address] [facility] [address] [id number] [address] [place] [address], [place] [id number] 04 Jul, 2010 [facility] [address] [id number] [address] [place] [address], [place] [id number] 04 Jul, 2010 [facility] [address] [id number] [address] [place] [id number] 04 Jul, 2010 [facility] [address] [id number] [address] [place] [id number] 14 Jun, 2010 [facility] [address] [id number] [address] [place] [id number] Jun, [facility] [address] [id number] [address] [place] [address], [place] [id number] 17 Apr, 2010 [facility] [address] [id number] [address] [place] [id number] Aug, [facility] [address] [id number] [address] [place] [id number] 17 Jul, 2009 [facility] [address] [id number] [address] [place] [id number] 17 Jul, 2009 [facility] [address] [id number] [address] [place] [id number] Jul, [facility] [address] [id number] [address] [place] [id number] 23 Jun, 2009 [facility] [address] [id number] [address] [place] [id number] 10 May, 2009 [facility] [address] [id number] [address] [place] [id number] 14 Dec, 2008 [facility] [address] [id number] [address] [place] [id number] Nov, [facility] [address] [id number] [address] [place] [id number] 10 Oct, 2008 [facility] [address] [id number] [address] [place] [id number] 05 Aug, 2008 [facility] [address] [id number] [address] [place] [phone] Aug, [facility] [address] [facility] [id number] [address] [place] [id number] Jun, IMMUNIZATIONS No Known Immunizations SOCIAL HISTORY [...] x 3 day s 04/2012 Hospitalization History [facility] [place]- Right wrist injury 03/29/2018
--- OUTSIDE RECORDS SUMMARY | 2020-04-09 00:13 | XMS REPORT ---
Author Author Kateryna Turner Doctor Organization [facility] Address Unknown Phone Unavailable Care Team Providers Care Licensed Master Social Worker Name Role Phone Migration, Doctor Unavailable Unavailable PROBLEMS Type Condition ICD9-CM Code KDA23-YX Code Onset Dates Condition S tatus SNOMED Code Problem Irregular menses N92.6 Active 801 36617 Problem Migraine with aura and without status migrainosu s, not intractable G43.109 Active 3010256 Problem Uncontrolled type 2 diabetes mellitus with hyperglycemia E11.65 Active 796823689 Problem Morbid obesity due to excess calories E66.01 Active 392481288 Problem RLS (restless legs syndrome) G25.81 A ctive 48284144 Problem Morbid obesity E66.01 Active 76523 6002 ALLERGIES No Information ENCOUNTERS Encounter Location Date Diagnosis [facility] [address] [facility] [id number] [address] [place] [address] Dec, [facility] [address] [facility] [id number] [address] [place] [address] Dec, [facility] [address] [facility] [id number] [address] [place] [address] Dec, Uncontrolled type 2 diabetes mellitus with hyperglycemia E11.65 [facility] [address] [facility] [id number] [address] [place] [address] 07 Dec, 2019 [facility] [address] [facility] [id number] [address] [place] [address] Dec, [facility] [address] [facility] [id number] [address] [place] [address] Dec, [facility] [address] [facility] [id number] [address] [place] [address] Nov, [facility] [address] [facility] [id number] [address] [place] [address] Nov, [facility] [address] [facility] [id number] [address] [place] [address] Nov, [facility] [address] [id number] [address] [place] [address] 02 Nov, 2019 RLS (restless legs syndrome) G25.81 [facility] [address] [id number] [address] [place] [address] 15 Oct, 2019 [facility] [address] [id number] [address] [place] [address] 09 Oct, 2019 Influenza J11.1 [facility] [address] [id number] [address] [place] [address] 16 Sep, 2019 [facility] [address] [id number] [address] [place] [address] 14 Sep, 2019 [facility] [address] [id number] [address] [place] [address] 14 Sep, 2019 [facility] [address] [id number] [address] [place] [address] 13 Sep, 2019 [facility] [address] [id number] [address] [place] [address] Sep, Pneumonia of left lower lobe due to infectious organism J18.9 and Migraine with aura and without status migrainosus, not intractable G43.109 [facility] [address] [id number] [address] [place] [address] Sep, [facility] [address] [id number] [address] [place] [address] Sep, [facility] [address] [id number] [address] [place] [address] Sep, [facility] [address] [facility] [id number] [address] [place] [address] Sep, [facility] [address] [facility] [id number] [address] [place] [address] 08 Sep, 2019 Pneumonia of left lower lobe due to infectious organism J18.9 and Migraine with aura and without status migrainosus, not intractable G43.109 [facility] [address] [id number] [address] [place] [address] Aug, Irregular menses N92.6 ; Wel l woman exam Z01.419 ; Pelvic cramping R10.2 and Left breast lump N63.20 [facility] [address] [facility] [id number] [address] [place] [address] Aug, [facility] [address] [id number] [address] [place] [address] 17 Aug, 2019 Well woman exam Z01.419 ; Le ft breast lump N63.20 ; Irregular menses N92.6 ; Encounter for immunization Z23 ; Pelvic cramping R10.2 and Screening for cervical cancer Z12.4 [facility] [address] [facility] [id number] [address] [place] [address] Aug, [facility] [address] [facility] [id number] [address] [place] [address] Aug, [facility] [address] [facility] [id number] [address] [place] [address] Aug, [facility] [address] [facility] [id number] [address] [place] [address] Jul, [facility] [address] [facility] [id number] [address] [place] [address] Jun, [facility] [address] [facility] [id number] [address] [place] [address] Jun, [facility] [address] [facility] [id number] [address] [place] [address] Jun, [facility] [address] [facility] [id number] [address] [place] [address] Jun, BMI 50.0-59.9, adult Z68.43 [facility] [address] [facility] [id number] [address] [place] [address] Jun, [facility] [address] [place] [id number] [address] [place] [address] May, Acute non-recurrent sinusiti s, unspecified location J01.90 ; Diarrhea, unspecified R19.7 ; Vomiting, unspecified R11.10 and Morbid obesity E66.01 [facility] [address] [address] Apr, [facility] [address] [address] Apr, Anemia due to other cause, n ot classified D64.89 and D-dimer, elevated R79.89 [facility] [address] [address] Apr, [facility] [address] [address] Apr, [facility] [address] [address] Mar, Anemia due to other cause, n ot classified D64.89 and D-dimer, elevated R79.89 [place] [address] [address] Mar, Leg edema, right R60.0 ; Hig h risk medication use Z79.899 and Morbid obesity E66.01 [facility] [address] [address] Mar, BMI 50.0-59.9, adult Z68.43 [place] [address] [address] Mar, [place] [address] [address] January, Uncontrolled type 2 diabetes mellitus with hyperglycemia E11.65 ; RLS (restless legs syndrome) G25.81 and Morbid obesity E66.01 [facility] [address] [address] Oct, Lipoma of right lower extrem ity D17.23 [facility] [address] [id number] [address] [place] [address] Oct, Lipoma of right lower extrem ity D17.23 [facility] [address] [id number] [address] [place] [address] Sep, [facility] [address] [id number] [address] [place] [address] Sep, [facility] [address] [id number] [address] [place] [address] Sep, [facility] [address] [id number] [address] [place] [address] Sep, [facility] [address] [facility] [id number] [address] [place] [address] Sep, [facility] [address] [facility] [id number] [address] [place] [address] Aug, Uncontrolled type 2 diabetes mellitus with hyperglycemia E11.65 ; Morbid obesity due to excess calories E66.01 ; Lipoma of torso D17.1 and BMI 50.0-59.9, adult Z68.43 [facility] [address] [facility] [id number] [address] [place] [address] Jun, Encounter for immunization Z 23 [facility] [address] [facility] [id number] [address] [place] [address] Jul, [facility] [address] [facility] [id number] [address] [place] [address] Jun, Encounter for immunization Z 23 [facility] [address] [facility] [id number] [address] [place] [address] May, [facility] [address] [facility] [id number] [address] [place] [address] Jun, Encounter for immunization Z 23 [facility] [address] [facility] [id number] [address] [place] [address] May, [facility] [address] [id number] [address] [place] [address], [place] [address] May, [facility] [address] [id number] [address] [place] [address], [place] [address] Apr, [facility] [address] [id number] [address] [place] [address], [place] [address] Feb, [facility] [address] [id number] [address] [place] [address], [place] [address] Feb, [facility] [address] [id number] [address] [place] [address], [place] [address] Feb, [facility] [address] [id number] [address] [place] [address], [place] [address] January, [facility] [address] [id number] [address] [place] [address], [place] [address] January, [facility] [address] [id number] [address] [place] [address], [place] [address] Dec, [facility] [address] [id number] [address] [place] [address], [place] [address] Dec, [facility] [address] [id number] [address] [place] [address], [place] [address] Nov, [facility] [address] [id number] [address] [place] [address], [place] [address] Nov, [facility] [address] [id number] [address] [place] [address], [place] [address] Nov, [facility] [address] [id number] [address] [place] [address], [place] [address] Nov, [facility] [address] [id number] [address] [place] [address], [place] [address] Nov, [facility] [address] [id number] [address] [place] [address], [place] [address] Nov, [facility] [address] [id number] [address] [place] [address], [place] [address] Nov, [facility] [address] [id number] [address] [place] [address], [place] [address] Oct, [facility] [address] [id number] [address] [place] [address], [place] [address] Oct, 2014 [facility] [address] [id number] [address] [place] [address], [place] [address] Oct, [facility] [address] [id number] [address] [place] [address], [place] [address] Oct, [facility] [address] [id number] [address] [place] [address], [place] [address] Oct, [facility] [address] [id number] [address] [place] [address], [place] [address] Sep, [facility] [address] [id number] [address] [place] [address], [place] [address] Sep, [facility] [address] [id number] [address] [place] [address], [place] [address] Sep, [facility] [address] [id number] [address] [place] [address], [place] [address] Sep, [facility] [address] [id number] [address] [place] [address], [place] [address] Sep, [facility] [address] [id number] [address] [place] [address], [place] [address] Sep, [facility] [address] [id number] [address] [place] [address], [place] [address] Sep, [facility] [address] [id number] [address] [place] [address], [place] [address] Sep, [facility] [address] [id number] [address] [place] [address], [place] [address] Sep, [facility] [address] [id number] [address] [place] [address], [place] [address] Sep, [facility] [address] [id number] [address] [place] [address], [place] [address] Aug, [facility] [address] [id number] [address] [place] [address], [place] [address] Aug, [facility] [address] [id number] [address] [place] [address], [place] [address] Aug, [facility] [address] [id number] [address] [place] [address], [place] [address] Aug, [facility] [address] [id number] [address] [place] [address], [place] [address] Aug, [facility] [address] [id number] [address] [place] [address], [place] [address] Aug, [facility] [address] [id number] [address] [place] [address], [place] [address] Aug, [facility] [address] [id number] [address] [place] [address], [place] [address] Aug, [facility] [address] [id number] [address] [place] [address], [place] [address] Aug, [facility] [address] [id number] [address] [place] [address], [place] [address] Aug, [facility] [address] [id number] [address] [place] [address], [place] [address] Aug, [facility] [address] [id number] [address] [place] [address], [place] [address] Aug, [facility] [address] [id number] [address] [place] [address], [place] [address] Aug, [facility] [address] [id number] [address] [place] [address], [place] [address] Aug, [facility] [address] [id number] [address] [place] [address], [place] [address] 17 Aug, 2014 [facility] [address] [id number] [address] [place] [address], [place] [address] 17 Aug, 2014 [facility] [address] [id number] [address] [place] [address], [place] [address] 16 Aug, 2014 [facility] [address] [id number] [address] [place] [address], [place] [address] 16 Aug, 2014 [facility] [address] [id number] [address] [place] [address], [place] [address] Aug, [facility] [address] [id number] [address] [place] [address], [place] [address] Aug, [facility] [address] [id number] [address] [place] [address], [place] [address] 08 Aug, 2014 [facility] [address] [id number] [address] [place] [address], [place] [address] 08 Aug, 2014 [facility] [address] [id number] [address] [place] [address], [place] [address] 05 Aug, 2014 [facility] [address] [id number] [address] [place] [address], [place] [address] 05 Aug, 2014 [facility] [address] [id number] [address] [place] [address], [place] [address] Jul, [facility] [address] [id number] [address] [place] [address], [place] [address] 07 Jul, 2014 [facility] [address] [id number] [address] [place] [address], [place] [address] Jun, [facility] [address] [id number] [address] [place] [address], [place] [address] 27 Jun, 2014 [facility] [address] [id number] [address] [place] [address], [place] [address] Jun, [facility] [address] [id number] [address] [place] [address], [place] [address] 17 Jun, 2014 [facility] [address] [id number] [address] [place] [address], [place] [address] 15 Jun, 2014 [facility] [address] [id number] [address] [place] [address], [place] [address] 15 Jun, 2014 [facility] [address] [id number] [address] [place] [address], [place] [address] 14 Jun, 2014 [facility] [address] [id number] [address] [place] [address], [place] [address] 14 Jun, 2014 [facility] [address] [id number] [address] [place] [address], [place] [address] 13 Jun, 2014 [facility] [address] [id number] [address] [place] [address], [place] [address] 13 Jun, 2014 [facility] [address] [id number] [address] [place] [address], [place] [address] 13 Jun, 2014 [facility] [address] [id number] [address] [place] [address], [place] [address] Jun, [facility] [address] [id number] [address] [place] [address], [place] [address] 06 Jun, 2014 [facility] [address] [id number] [address] [place] [address], [place] [address] 06 Jun, 2014 [facility] [address] [id number] [address] [place] [address], [place] [address] 26 May, 2013 [facility] [address] [id number] [address] [place] [address] 26 May, 2013 [facility] [address] [id number] [address] [place] [address] 22 May, 2013 [facility] [address] [id number] [address] [place] [address], [place] [address] 22 May, 2013 [facility] [address] [id number] [address] [place] [address], [place] [address] 04 May, 2013 [facility] [address] [id number] [address] [place] [address] 04 May, 2013 [facility] [address] [id number] [address] [place] [address] May, [facility] [address] [id number] [address] [place] [address], [place] [address] May, [facility] [address] [id number] [address] [place] [address], [place] [address] Apr, [facility] [address] [id number] [address] [place] [address], [place] [address] Apr, [facility] [address] [id number] [address] [place] [address], [place] [address] Apr, [facility] [address] [id number] [address] [place] [address], [place] [address] Apr, [facility] [address] [id number] [address] [place] [address], [place] [address] Apr, [facility] [address] [id number] [address] [place] [address], [place] [address] Apr, [facility] [address] [id number] [address] [place] [address], [place] [address] Apr, [facility] [address] [id number] [address] [place] [address], [place] [address] Apr, [facility] [address] [id number] [address] [place] [address], [place] [address] Apr, [facility] [address] [id number] [address] [place] [address], [place] [address] Mar, [facility] [address] [id number] [address] [place] [address], [place] [address] Mar, [facility] [address] [id number] [address] [place] [address], [place] [address] Mar, [facility] [address] [id number] [address] [place] [address], [place] [address] Feb, [facility] [address] [id number] [address] [place] [address], [place] [address] Feb, [facility] [address] [id number] [facility] [place] [address] 27 Feb, 2014 [facility] [address] [id number] [facility] [address] Feb, [facility] [address] [id number] [facility] [address] Feb, [facility] [address] [id number] [facility] [address] Feb, [facility] [address] [id number] [facility] [address] Feb, [facility] [address] [id number] [address] [place] [address], [place] [address] Feb, [facility] [address] [id number] [address] [place] [address], [place] [address] Feb, [facility] [address] [id number] [address] [place] [address], [place] [address] Feb, [facility] [address] [id number] [address] [place] [address], [place] [address] Feb, [facility] [address] [id number] [address] [place] [address], [place] [address] Feb, [facility] [address] [id number] [address] [place] [address], [place] [address] Feb, [facility] [address] [id number] [address] [place] [address], [place] [address] Feb, [facility] [address] [id number] [address] [place] [address], [place] [address] Feb, [facility] [address] [id number] [address] [place] [address], [place] [address] Feb, [facility] [address] [id number] [address] [place] [address], [place] [address] January, [facility] [address] [id number] [address] [place] [address], [place] [address] January, [facility] [address] [id number] [facility] [place] [address] January, [facility] [address] [id number] [address] [place] [address], [place] [address] January, [facility] [address] [id number] [address] [place] [address], [place] [address] January, [facility] [address] [id number] [address] [place] [address], [place] [address] January, [facility] [address] [id number] [address] [place] [address], [place] [address] January, [facility] [address] [id number] [address] [place] [address], [place] [address] January, [facility] [address] [id number] [address] [place] [address], [place] [address] January, [facility] [address] [id number] [address] [place] [address], [place] [address] January, [facility] [address] [id number] [address] [place] [address], [place] [address] January, [facility] [address] [id number] [address] [place] [address], [place] [address] January, [facility] [address] [id number] [address] [place] [address], [place] [address] January, [facility] [address] [id number] [address] [place] [address], [place] [address] January, [facility] [address] [id number] [address] [place] [address], [place] [address] January, [facility] [address] [id number] [address] [place] [address], [place] [address] January, [facility] [address] [id number] [address] [place] [address], [place] [address] January, [facility] [address] [id number] [address] [place] [address], [place] [address] January, [facility] [address] [id number] [address] [place] [address], [place] [address] January, [facility] [address] [id number] [address] [place] [address], [place] [address] January, [facility] [address] [id number] [address] [place] [address], [place] [address] January, [facility] [address] [id number] [address] [place] [address], [place] [address] January, [facility] [address] [id number] [address] [place] [address], [place] [address] January, [facility] [address] [id number] [address] [place] [address], [place] [address] January, [facility] [address] [id number] [address] [place] [address], [place] [address] January, [facility] [address] [id number] [address] [place] [address], [place] [address] January, [facility] [address] [id number] [address] [place] [address], [place] [address] Dec, [facility] [address] [id number] [address] [place] [address], [place] [address] Dec, [facility] [address] [id number] [address] [place] [address], [place] [address] Dec, [facility] [address] [id number] [address] [place] [address], [place] [address] Dec, [facility] [address] [id number] [address] [place] [address], [place] [address] Dec, [facility] [address] [id number] [address] [place] [address], [place] [address] Dec, [facility] [address] [id number] [address] [place] [address], [place] [address] Dec, [facility] [address] [id number] [facility] [place] [address] Dec, [facility] [address] [id number] [address] [place] [address], [place] [address] Dec, [facility] [address] [id number] [address] [place] [address], [place] [address] Dec, [facility] [address] [id number] [address] [place] [address], [place] [address] Dec, [facility] [address] [id number] [address] [place] [address], [place] [address] Dec, [facility] [address] [id number] [address] [place] [address], [place] [address] Dec, [facility] [address] [id number] [address] [place] [address], [place] [address] Dec, [facility] [address] [id number] [address] [place] [address], [place] [address] Dec, [facility] [address] [id number] [address] [place] [address], [place] [address] Dec, [facility] [address] [id number] [address] [place] [address], [place] [address] Dec, [facility] [address] [id number] [address] [place] [address], [place] [address] Dec, [facility] [address] [id number] [address] [place] [address], [place] [address] Dec, [facility] [address] [id number] [address] [place] [address], [place] [address] Dec, [facility] [address] [id number] [address] [place] [address], [place] [address] Dec, [facility] [address] [id number] [address] [place] [address], [place] [address] Dec, [facility] [address] [id number] [address] [place] [address], [place] [address] 31 Nov, 2013 [facility] [address] [id number] [facility] [place] [address] 31 Nov, 2013 [facility] [address] [id number] [address] [place] [address], [place] [address] 25 Nov, 2013 [facility] [address] [id number] [facility] [place] [address] Nov, [facility] [address] [id number] [address] [place] [address], [place] [address] 24 Nov, 2013 [facility] [address] [id number] [facility] [place] [address] 24 Nov, 2013 [facility] [address] [id number] [address] [place] [address], [place] [address] Nov, [facility] [address] [id number] [address] [place] [address], [place] [address] Nov, [facility] [address] [id number] [address] [place] [address], [place] [address] 18 Nov, 2013 [facility] [address] [id number] [address] [place] [address], [place] [address] 18 Nov, 2013 [facility] [address] [id number] [address] [place] [address], [place] [address] 18 Nov, 2013 [facility] [address] [id number] [address] [place] [address], [place] [address] 18 Nov, 2013 [facility] [address] [id number] [address] [place] [address], [place] [address] 14 Nov, 2013 [facility] [address] [id number] [address] [place] [address], [place] [address] 14 Nov, 2013 [facility] [address] [id number] [address] [place] [address], [place] [address] 06 Nov, 2013 [facility] [address] [id number] [address] [place] [address], [place] [address] 06 Nov, 2013 [facility] [address] [id number] [address] [place] [address], [place] [address] Oct, [facility] [address] [id number] [address] [place] [address], [place] [address] Oct, [facility] [address] [id number] [address] [place] [address], [place] [address] Oct, [facility] [address] [id number] [address] [place] [address], [place] [address] Oct, [facility] [address] [id number] [address] [place] [address], [place] [address] Oct, [facility] [address] [id number] [address] [place] [address], [place] [address] Oct, [facility] [address] [id number] [address] [place] [address], [place] [address] Oct, [facility] [address] [id number] [address] [place] [address], [place] [address] Oct, [facility] [address] [id number] [address] [place] [address], [place] [address] Oct, [facility] [address] [id number] [address] [place] [address], [place] [address] Oct, [facility] [address] [id number] [address] [place] [address], [place] [address] Oct, [facility] [address] [id number] [address] [place] [address], [place] [address] Oct, [facility] [address] [id number] [address] [place] [address], [place] [address] Oct, [facility] [address] [id number] [address] [place] [address], [place] [address] Oct, [facility] [address] [id number] [address] [place] [address], [place] [address] Oct, [facility] [address] [id number] [address] [place] [address] [place] [address] Sep, [facility] [address] [id number] [address] [place] [address], [place] [address] Sep, [facility] [address] [id number] [address] [place] [address], [place] [address] Sep, [facility] [address] [id number] [address] [place] [address], [place] [address] Sep, [facility] [address] [id number] [address] [place] [address], [place] [address] Sep, [facility] [address] [id number] [address] [place] [address], [place] [address] Sep, [facility] [address] [id number] [address] [place] [address], [place] [address] Sep, [facility] [address] [id number] [address] [place] [address], [place] [address] Sep, [facility] [address] [id number] [address] [place] [address], [place] [address] Sep, [facility] [address] [id number] [address] [place] [address], [place] [address] Sep, [facility] [address] [id number] [address] [place] [address], [place] [address] Sep, [facility] [address] [id number] [address] [place] [address], [place] [address] Sep, [facility] [address] [id number] [address] [place] [address], [place] [address] Sep, [facility] [address] [id number] [address] [place] [address], [place] [address] Aug, [facility] [address] [id number] [address] [place] [address], [place] [address] Aug, [facility] [address] [id number] [address] [place] [address], [place] [address] Aug, [facility] [address] [id number] [address] [place] [address], [place] [address] 24 Aug, 2013 [facility] [address] [id number] [address] [place] [address], [place] [address] 17 Aug, 2013 [facility] [address] [id number] [address] [place] [address], [place] [address] 17 Aug, 2013 [facility] [address] [id number] [address] [place] [address], [place] [address] 16 Aug, 2013 [facility] [address] [id number] [address] [place] [address], [place] [address] 16 Aug, 2013 [facility] [address] [id number] [address] [place] [address], [place] [address] 12 Aug, 2013 [facility] [address] [id number] [address] [place] [address], [place] [address] 12 Aug, 2013 [facility] [address] [id number] [address] [place] [address], [place] [address] 10 Aug, 2013 [facility] [address] [id number] [address] [place] [address], [place] [address] 10 Aug, 2013 [facility] [address] [id number] [address] [place] [address], [place] [address] 02 Aug, 2013 [facility] [address] [id number] [address] [place] [address], [place] [address] 02 Aug, 2013 [facility] [address] [id number] [address] [place] [address], [place] [address] 19 Jul, 2013 [facility] [address] [id number] [address] [place] [address], [place] [address] 19 Jul, 2013 [facility] [address] [id number] [address] [place] [address], [place] [address] 18 Jul, 2013 [facility] [address] [id number] [address] [place] [address], [place] [address] 18 Jul, 2013 [facility] [address] [id number] [address] [place] [address], [place] [address] 14 Jul, 2013 [facility] [address] [id number] [address] [place] [address], [place] [address] 14 Jul, 2013 [facility] [address] [id number] [address] [place] [address], [place] [address] 14 Jul, 2013 [facility] [address] [id number] [address] [place] [address], [place] [address] 14 Jul, 2013 [facility] [address] [id number] [address] [place] [address] 07 Jul, 2013 [facility] [address] [id number] [address] [place] [address], [place] [address] 07 Jul, 2013 [facility] [address] [id number] [address] [place] [address] 06 Jul, 2013 [facility] [address] [id number] [address] [place] [address], [place] [address] Jul, [facility] [address] [id number] [address] [place] [address] 05 Jul, 2013 [facility] [address] [id number] [address] [place] [address] 05 Jul, 2013 [facility] [address] [id number] [address] [place] [address] Jun, [facility] [address] [id number] [address] [place] [address] 23 Jun, 2013 [facility] [address] [id number] [address] [place] [address] 15 Jun, 2013 [facility] [address] [id number] [address] [place] [address] 15 Jun, 2013 [facility] [address] [id number] [address] [place] [address] 14 Jun, 2013 [facility] [address] [id number] [address] [place] [address] 24 May, 2013 [facility] [address] [id number] [facility] [place] [address] 20 Sep, 2012 [facility] [address] [id number] [address] [place] [address], [place] [address] 20 Sep, 2012 [facility] [address] [id number] [address] [place] [address], [place] [address] 20 Sep, 2012 [facility] [address] [id number] [address] [place] [address], [place] [address] 19 Sep, 2012 [facility] [address] [id number] [address] [place] [address], [place] [address] 13 Sep, 2012 [facility] [address] [id number] [address] [place] [address], [place] [address] 12 May, 2012 [facility] [address] [id number] [address] [place] [address], [place] [address] 12 May, 2012 [facility] [address] [id number] [address] [place] [address], [place] [address] 11 May, 2012 [facility] [address] [id number] [address] [place] [address], [place] [address] 11 Sep, 2012 [facility] [address] [id number] [address] [place] [address], [place] [address] 11 May, 2012 [facility] [address] [id number] [address] [place] [address], [place] [address] 09 Sep, 2012 [facility] [address] [id number] [address] [place] [address], [place] [address] 05 Sep, 2012 [facility] [address] [id number] [address] [place] [address], [place] [address] 04 Sep, 2012 [facility] [address] [id number] [address] [place] [address], [place] [address] 03 May, 2012 [facility] [address] [id number] [address] [place] [address], [place] [address] 27 Apr, 2012 [facility] [address] [id number] [address] [place] [address], [place] [address] Apr, [facility] [address] [id number] [address] [place] [address], [place] [address] Apr, [facility] [address] [id number] [address] [place] [address], [place] [address] Apr, [facility] [address] [id number] [address] [place] [address], [place] [address] Apr, [facility] [address] [id number] [address] [place] [address], [place] [address] Apr, [facility] [address] [id number] [address] [place] [address], [place] [address] Apr, [facility] [address] [id number] [address] [place] [address], [place] [address] Apr, [facility] [address] [id number] [address] [place] [address], [place] [address] Apr, [facility] [address] [id number] [address] [place] [address], [place] [address] Mar, [facility] [address] [id number] [address] [place] [address], [place] [address] Mar, [facility] [address] [id number] [address] [place] [address], [place] [address] Mar, [facility] [address] [id number] [address] [place] [address], [place] [address] Mar, [facility] [address] [id number] [address] [place] [address], [place] [address] Mar, [facility] [address] [id number] [address] [place] [address], [place] [address] Mar, [facility] [address] [id number] [address] [place] [address], [place] [address] Mar, [facility] [address] [id number] [address] [place] [address], [place] [address] Mar, [facility] [address] [id number] [address] [place] [address], [place] [address] Mar, [facility] [address] [id number] [address] [place] [address], [place] [address] Mar, [facility] [address] [id number] [address] [place] [address], [place] [address] Mar, [facility] [address] [id number] [address] [place] [address], [place] [address] Feb, [facility] [address] [id number] [address] [place] [address], [place] [address] Feb, [facility] [address] [id number] [address] [place] [address], [place] [address] Feb, [facility] [address] [id number] [address] [place] [address], [place] [address] Feb, [facility] [address] [id number] [address] [place] [address], [place] [address] Feb, [facility] [address] [id number] [address] [place] [address], [place] [address] Feb, [facility] [address] [id number] [address] [place] [address], [place] [address] Feb, [facility] [address] [id number] [address] [place] [address], [place] [address] Feb, [facility] [address] [id number] [address] [place] [address], [place] [address] Feb, [facility] [address] [id number] [address] [place] [address], [place] [address] January, [facility] [address] [id number] [address] [place] [address], [place] [address] January, [facility] [address] [id number] [address] [place] [address], [place] [address] January, [facility] [address] [id number] [address] [place] [address], [place] [address] January, [facility] [address] [id number] [address] [place] [address], [place] [address] January, [facility] [address] [id number] [address] [place] [address], [place] [address] January, [facility] [address] [id number] [address] [place] [address], [place] [address] January, [facility] [address] [id number] [address] [place] [address], [place] [address] January, [facility] [address] [id number] [address] [place] [address], [place] [address] January, [facility] [address] [id number] [address] [place] [address], [place] [address] January, [facility] [address] [id number] [address] [place] [address], [place] [address] January, [facility] [address] [id number] [address] [place] [address], [place] [address] January, [facility] [address] [id number] [address] [place] [address], [place] [address] January, [facility] [address] [id number] [address] [place] [address], [place] [address] January, [facility] [address] [id number] [address] [place] [address], [place] [address] January, [facility] [address] [id number] [address] [place] [address], [place] [address] January, [facility] [address] [id number] [address] [place] [address], [place] [address] January, [facility] [address] [id number] [address] [place] [address], [place] [address] January, [facility] [address] [id number] [address] [place] [address], [place] [address] January, [facility] [address] [id number] [address] [place] [address], [place] [address] January, [facility] [address] [id number] [address] [place] [address], [place] [address] January, [facility] [address] [id number] [address] [place] [address], [place] [address] January, [facility] [address] [id number] [address] [place] [address], [place] [address] January, [facility] [address] [id number] [address] [place] [address], [place] [address] Dec, [facility] [address] [id number] [address] [place] [address], [place] [address] Dec, [facility] [address] [id number] [address] [place] [address], [place] [address] Dec, [facility] [address] [id number] [address] [place] [address], [place] [address] Dec, [facility] [address] [id number] [address] [place] [address], [place] [address] Dec, [facility] [address] [id number] [address] [place] [address], [place] [address] Nov, [facility] [address] [id number] [address] [place] [address], [place] [address] Oct, [facility] [address] [id number] [address] [place] [address], [place] [address] Oct, [facility] [address] [id number] [address] [place] [address], [place] [address] Oct, [facility] [address] [id number] [address] [place] [address], [place] [address] Oct, [facility] [address] [id number] [address] [place] [address], [place] [address] Oct, [facility] [address] [id number] [address] [place] [address], [place] [address] Sep, [facility] [address] [id number] [address] [place] [address], [place] [address] Sep, [facility] [address] [id number] [address] [place] [address], [place] [address] Sep, [facility] [address] [id number] [address] [place] [address], [place] [address] Aug, [facility] [address] [id number] [address] [place] [address], [place] [address] Aug, [facility] [address] [id number] [address] [place] [address], [place] [address] Aug, [facility] [address] [id number] [address] [place] [address], [place] [address] Aug, [facility] [address] [id number] [address] [place] [address], [place] [address] Jul, [facility] [address] [id number] [address] [place] [address], [place] [address] Jul, [facility] [address] [id number] [address] [place] [address], [place] [address] Jul, [facility] [address] [id number] [address] [place] [address], [place] [address] Jul, [facility] [address] [id number] [address] [place] [address], [place] [address] Jul, [facility] [address] [id number] [address] [place] [address], [place] [address] Jul, [facility] [address] [id number] [address] [place] [address], [place] [address] Jun, [facility] [address] [id number] [address] [place] [address], [place] [address] Jun, [facility] [address] [id number] [address] [place] [address], [place] [address] Jun, [facility] [address] [id number] [address] [place] [address], [place] [address] Jun, [facility] [address] [id number] [address] [place] [address], [place] [address] 09 Jun, 2012 [facility] [address] [id number] [address] [place] [address], [place] [address] Jun, [facility] [address] [id number] [address] [place] [address], [place] [address] 05 Jun, 2012 [facility] [address] [id number] [address] [place] [address], [place] [address] Jun, [facility] [address] [id number] [address] [place] [address], [place] [address] Jun, [facility] [address] [id number] [address] [place] [address], [place] [address] Jun, [facility] [address] [id number] [address] [place] [address], [place] [address] 17 May, 2012 [facility] [address] [id number] [address] [place] [address], [place] [address] 08 May, 2012 [facility] [address] [id number] [address] [place] [address], [place] [address] 06 May, 2012 [facility] [address] [id number] [address] [place] [address], [place] [address] 30 Apr, 2012 [facility] [address] [id number] [address] [place] [address], [place] [address] Apr, [facility] [address] [id number] [address] [place] [id number] 14 Apr, 2012 [facility] [address] [id number] [address] [place] [address], [place] [address] Apr, [facility] [address] [id number] [address] [place] [address], [place] [address] Apr, [facility] [address] [id number] [address] [place] [address], [place] [address] Apr, [facility] [address] [id number] [address] [place] [address] Apr, [facility] [address] [id number] [address] [place] [address], [place] [address] Apr, [facility] [address] [id number] [address] [place] [address], [place] [address] Apr, [facility] [address] [id number] [address] [place] [address], [place] [address] Mar, [facility] [address] [id number] [address] [place] [address], [place] [address] Mar, [facility] [address] [id number] [address] [place] [address], [place] [address] Mar, [facility] [address] [id number] [address] [place] [address], [place] [address] Mar, [facility] [address] [id number] [address] [place] [address], [place] [address] Feb, [facility] [address] [id number] [address] [place] [address], [place] [address] Feb, [facility] [address] [id number] [address] [place] [address], [place] [address] Feb, [facility] [address] [id number] [address] [place] [address], [place] [address] January, [facility] [address] [id number] [address] [place] [address], [place] [address] January, [facility] [address] [id number] [address] [place] [address], [place] [address] January, [facility] [address] [id number] [address] [place] [address], [place] [address] January, [facility] [address] [id number] [address] [place] [address], [place] [address] January, [facility] [address] [id number] [address] [place] [address], [place] [address] Dec, [facility] [address] [id number] [address] [place] [address], [place] [address] Dec, [facility] [address] [id number] [address] [place] [address], [place] [address] 16 Dec, 2011 [facility] [address] [id number] [address] [place] [address], [place] [address] 28 Oct, 2011 [facility] [address] [id number] [address] [place] [address], [place] [address] Oct, [facility] [address] [id number] [address] [place] [address], [place] [address] Oct, [facility] [address] [id number] [address] [place] [address], [place] [address] Sep, [facility] [address] [id number] [address] [place] [address], [place] [address] Sep, [facility] [address] [id number] [address] [place] [address], [place] [address] Aug, [facility] [address] [id number] [address] [place] [address], [place] [address] Jul, [facility] [address] [id number] [address] [place] [address], [place] [address] Jul, [facility] [address] [id number] [address] [place] [address], [place] [address] Mar, [facility] [address] [id number] [address] [place] [address], [place] [address] Aug, [facility] [address] [id number] [address] [place] [address], [place] [address] Jul, [facility] [address] [id number] [address] [place] [address], [place] [address] Jul, [facility] [address] [id number] [address] [place] [address], [place] [address] 04 Jul, 2010 [facility] [address] [id number] [address] [place] [address], [place] [address] Jul, [facility] [address] [id number] [address] [place] [id number] 14 Jun, 2010 [facility] [address] [id number] [address] [place] [address] Jun, [facility] [address] [id number] [address] [place] [address] Apr, [facility] [address] [id number] [address] [place] [address] Aug, [facility] [address] [id number] [address] [place] [address] Jul, [facility] [address] [id number] [address] [place] [address] Jul, [facility] [address] [id number] [address] [place] [address] Jul, [facility] [address] [id number] [address] [place] [address] Jun, [facility] [address] [id number] [address] [place] [address] May, [facility] [address] [id number] [address] [place] [address] 14 Dec, 2008 [facility] [address] [id number] [address] [place] [address] Nov, [facility] [address] [id number] [address] [place] [address] 10 Oct, 2008 [facility] [address] [id number] [address] [place] [address] Aug, [facility] [address] [id number] [address] [place] [address] Aug, [facility] [address] [id number] [address] [place] [address] Jun, IMMUNIZATIONS No Known Immunizations SOCIAL HISTORY Never Assessed REASON FOR VISIT PLAN OF CARE VITAL SIGNS Height 66 in 2013-04-09 Weight 296.6 lbs 2013-04-09 Temperature 98.9 degrees Fahrenheit 2013-04-09 Heart Rate 102 bpm 2013-04-09 Respiratory Rate 20 2013-04-09 Blood pressure systolic 118 mmHg 2013-04-09 Blood pressure diastolic 60 mmHg 2013-04-09 MEDICATIONS Unknown Medications RESULTS No Results PROCEDURES Procedure Date Ordered Result Body Site MEASURE BLOOD OXYGEN LEVEL April 09, 2013 ASSAY OF MAGNESIUM April 09, 2013 GLYCATED HEMOGLOBIN TEST April 09, 2013 MICROALBUMIN, SEMIQUANT April 09, 2013 MICROALBUMIN, QUANTITATIVE April 09, 2013 BASIC METABOLIC PANEL April 09, 2013 ASSAY OF VITAMIN D April 09, 2013 VENIPUNCT, ROUTINE* April 09, 2013 INSTRUCTIONS MEDICATIONS ADMINISTERED No Known Medications [...] x 3 day s 04/2012 Hospitalization History [facility] [place]- Right wrist injury 03/29/2018
--- OUTSIDE RECORDS SUMMARY | 2020-04-09 00:13 | XMS REPORT ---
Author Author Kateryna LOPEZ [facility] Address [address] [place] [address] Care Team Providers Care [place] Finish Operator Tig Welder Name Role Phone JESSE LOPEZ Unavailable PROBLEMS Type Condition ICD9-CM Code MJC13-LK Code Onset Dates Condition S tatus SNOMED Code Problem Irregular menses N92.6 Active 801 14718 Problem Migraine with aura and without status migrainosu s, not intractable G43.109 Active 5322104 Problem Uncontrolled type 2 diabetes mellitus with hyperglycemia E11.65 Active 610569331 Problem Morbid obesity due to excess calories E66.01 Active 574281264 Problem RLS (restless legs syndrome) G25.81 A ctive 51946163 Problem Morbid obesity E66.01 Active 11010 6002 ALLERGIES No Information ENCOUNTERS Encounter Location Date Diagnosis [facility] [address] [facility] [id number] [address] [place] [id number] Dec, [facility] [address] [facility] [id number] [address] [place] [id number] Dec, [facility] [address] [facility] [id number] [address] [place] [phone] Dec, Uncontrolled type 2 diabetes mellitus with hyperglycemia E11.65 [facility] [address] [facility] [id number] [address] [place] [id number] 07 Dec, 2019 [facility] [address] [facility] [id number] [address] [place] [id number] Dec, [facility] [address] [facility] [id number] [address] [place] [id number] Dec, [facility] [address] [facility] [id number] [address] [place] [phone] Nov, [facility] [address] [id number] [address] [place] [id number] 28 Nov, 2019 [facility] [address] [id number] [address] [place] [id number] 03 Nov, 2019 [facility] [address] [facility] [id number] [address] [place] [id number] 02 Nov, 2019 RLS (restless legs syndrome) G25.81 [facility] [address] [id number] [address] [place] [id number] 15 Oct, 2019 [facility] [address] [id number] [address] [place] [id number] 09 Oct, 2019 Influenza J11.1 [facility] [address] [facility] [id number] [address] [place] [id number] 16 Sep, 2019 [facility] [address] [facility] [id number] [address] [place] [phone] 14 Sep, 2019 [facility] [address] [facility] [id number] [address] [place] [phone] 14 Sep, 2019 [facility] [address] [facility] [id number] [address] [place] [phone] 13 Sep, 2019 [facility] [address] [facility] [id number] [address] [place] [id number] 10 Sep, 2019 Pneumonia of left lower lobe due to infectious organism J18.9 and Migraine with aura and without status migrainosus, not intractable G43.109 [facility] [address] [id number] [address] [place] [id number] 10 Sep, 2019 [facility] [address] [facility] [id number] [address] [place] [id number] 10 Sep, 2019 [facility] [address] [facility] [id number] [address] [place] [phone] 08 Sep, 2019 [facility] [address] [facility] [id number] [address] [place] [id number] 08 Sep, 2019 [facility] [address] [facility] [id number] [address] [place] [id number] Sep, Pneumonia of left lower lobe due to infectious organism J18.9 and Migraine with aura and without status migrainosus, not intractable G43.109 [facility] [address] [id number] [address] [place] [id number] Aug, Irregular menses N92.6 ; Wel l woman exam Z01.419 ; Pelvic cramping R10.2 and Left breast lump N63.20 [facility] [address] [id number] [address] [place] [id number] Aug, [facility] [address] [id number] [address] [place] [phone] Aug, Well woman exam Z01.419 ; Le ft breast lump N63.20 ; Irregular menses N92.6 ; Encounter for immunization Z23 ; Pelvic cramping R10.2 and Screening for cervical cancer Z12.4 [facility] [address] [facility] [id number] [address] [place] [phone] Aug, [facility] [address] [facility] [id number] [address] [place] [phone] Aug, [facility] [address] [facility] [id number] [address] [place] [phone] Aug, [facility] [address] [facility] [id number] [address] [place] [phone] Jul, [facility] [address] [facility] [id number] [address] [place] [phone] Jun, [facility] [address] [id number] [address] [place] [id number] Jun, [facility] [address] [facility] [id number] [address] [place] [phone] Jun, [facility] [address] [facility] [id number] [address] [place] [id number] Jun, BMI 50.0-59.9, adult Z68.43 [facility] [address] [place] [id number] [address] [place] [phone] Jun, [facility] [address] [id number] May, Acute non-recurrent sinusiti s, unspecified location J01.90 ; Diarrhea, unspecified R19.7 ; Vomiting, unspecified R11.10 and Morbid obesity E66.01 [place] [address] [address] Apr, [place] [address] [address] Apr, Anemia due to other cause, n ot classified D64.89 and D-dimer, elevated R79.89 [place] [address] [address] Apr, [place] [address] [address] Apr, [place] [address] [address] Mar, Anemia due to other cause, n ot classified D64.89 and D-dimer, elevated R79.89 [place] [address] [address] Mar, Leg edema, right R60.0 ; Hig h risk medication use Z79.899 and Morbid obesity E66.01 [facility] [address] [address] Mar, BMI 50.0-59.9, adult Z68.43 [place] [address] [address] Mar, [place] [address] [address] January, Uncontrolled type 2 diabetes mellitus with hyperglycemia E11.65 ; RLS (restless legs syndrome) G25.81 and Morbid obesity E66.01 [facility] [address] [id number] [address] [place] [id number] Oct, Lipoma of right lower extrem ity D17.23 [facility] [address] [id number] [address] [place] [phone] Oct, Lipoma of right lower extrem ity D17.23 [facility] [address] [id number] [address] [place] [phone] Sep, [facility] [address] [id number] [address] [place] [phone] Sep, [facility] [address] [id number] [address] [place] [phone] Sep, [facility] [address] [facility] [id number] [address] [place] [phone] Sep, [facility] [address] [facility] [id number] [address] [place] [id number] Sep, [facility] [address] [facility] [id number] [address] [place] [id number] Aug, Uncontrolled type 2 diabetes mellitus with hyperglycemia E11.65 ; Morbid obesity due to excess calories E66.01 ; Lipoma of torso D17.1 and BMI 50.0-59.9, adult Z68.43 [facility] [address] [facility] [id number] [address] [place] [phone] Jun, Encounter for immunization Z 23 [facility] [address] [id number] [address] [place] [phone] Jul, [facility] [address] [facility] [id number] [address] [place] [phone] Jun, Encounter for immunization Z 23 [facility] [address] [id number] [address] [place] [id number] May, [facility] [address] [facility] [id number] [address] [place] [phone] Jun, Encounter for immunization Z 23 [facility] [address] [id number] [address] [place] [address], [place] [address] 29 May, 2015 [facility] [address] [id number] [address] [place] [address], [place] [address] May, [facility] [address] [id number] [address] [place] [address], [place] [address] Apr, [facility] [address] [id number] [address] [place] [address], [place] [address] Feb, [facility] [address] [id number] [address] [place] [address], [place] [address] Feb, [facility] [address] [id number] [address] [place] [phone] Feb, [facility] [address] [id number] [address] [place] [address], [place] [address] January, [facility] [address] [id number] [address] [place] [phone] January, [facility] [address] [id number] [address] [place] [address], [place] [address] Dec, [facility] [address] [id number] [address] [place] [phone] Dec, [facility] [address] [id number] [address] [place] [id number] Nov, [facility] [address] [id number] [address] [place] [phone] Nov, [facility] [address] [id number] [address] [place] [phone] Nov, [facility] [address] [id number] [address] [place] [phone] Nov, [facility] [address] [id number] [address] [place] [phone] Nov, [facility] [address] [id number] [address] [place] [address], [place] [address] Nov, [facility] [address] [id number] [address] [place] [address], [place] [address] Nov, [facility] [address] [id number] [address] [place] [address], [place] [address] 18 Oct, 2014 [facility] [address] [id number] [address] [place] [address], [place] [address] Oct, 2014 [facility] [address] [id number] [address] [place] [address], [place] [address] Oct, [facility] [address] [id number] [address] [place] [address], [place] [address] Oct, [facility] [address] [id number] [address] [place] [address], [place] [address] Oct, [facility] [address] [id number] [address] [place] [address], [place] [address] Sep, [facility] [address] [id number] [address] [place] [address], [place] [address] Sep, [facility] [address] [id number] [address] [place] [address], [place] [address] Sep, [facility] [address] [id number] [address] [place] [address], [place] [address] Sep, [facility] [address] [id number] [address] [place] [address], [place] [address] Sep, [facility] [address] [id number] [address] [place] [address], [place] [address] Sep, [facility] [address] [id number] [address] [place] [address], [place] [address] Sep, [facility] [address] [id number] [address] [place] [address], [place] [address] Sep, [facility] [address] [id number] [address] [place] [address], [place] [address] Sep, [facility] [address] [id number] [address] [place] [address], [place] [address] Sep, [facility] [address] [id number] [address] [place] [address], [place] [address] Aug, [facility] [address] [id number] [address] [place] [address], [place] [address] Aug, [facility] [address] [id number] [address] [place] [address], [place] [address] Aug, [facility] [address] [id number] [address] [place] [address], [place] [address] Aug, [facility] [address] [id number] [address] [place] [address], [place] [address] Aug, [facility] [address] [id number] [address] [place] [address], [place] [address] Aug, [facility] [address] [id number] [address] [place] [address], [place] [address] Aug, [facility] [address] [id number] [address] [place] [address], [place] [address] Aug, [facility] [address] [id number] [address] [place] [address], [place] [address] Aug, [facility] [address] [id number] [address] [place] [address], [place] [address] Aug, [facility] [address] [id number] [address] [place] [address], [place] [address] Aug, [facility] [address] [id number] [address] [place] [address], [place] [address] Aug, [facility] [address] [id number] [address] [place] [address], [place] [address] Aug, [facility] [address] [id number] [address] [place] [address], [place] [address] Aug, [facility] [address] [id number] [address] [place] [address], [place] [address] 17 Aug, 2014 [facility] [address] [id number] [address] [place] [address], [place] [address] 17 Aug, 2014 [facility] [address] [id number] [address] [place] [address], [place] [address] 16 Aug, 2014 [facility] [address] [id number] [address] [place] [address], [place] [address] 16 Aug, 2014 [facility] [address] [id number] [address] [place] [address], [place] [address] Aug, [facility] [address] [id number] [address] [place] [address], [place] [address] Aug, [facility] [address] [id number] [address] [place] [address], [place] [address] Aug, [facility] [address] [id number] [address] [place] [address], [place] [address] 08 Aug, 2014 [facility] [address] [id number] [address] [place] [address], [place] [address] 05 Aug, 2014 [facility] [address] [id number] [address] [place] [address], [place] [address] 05 Aug, 2014 [facility] [address] [id number] [address] [place] [address], [place] [address] Jul, [facility] [address] [id number] [address] [place] [address], [place] [address] Jul, [facility] [address] [id number] [address] [place] [address], [place] [address] Jun, [facility] [address] [id number] [address] [place] [address], [place] [address] Jun, [facility] [address] [id number] [address] [place] [address], [place] [address] Jun, [facility] [address] [id number] [address] [place] [address], [place] [address] Jun, [facility] [address] [id number] [address] [place] [address], [place] [address] 15 Jun, 2014 [facility] [address] [id number] [address] [place] [address], [place] [address] 15 Jun, 2014 [facility] [address] [id number] [address] [place] [address], [place] [address] 14 Jun, 2014 [facility] [address] [id number] [address] [place] [address], [place] [address] 14 Jun, 2014 [facility] [address] [id number] [address] [place] [address], [place] [address] 13 Jun, 2014 [facility] [address] [id number] [address] [place] [address], [place] [address] 13 Jun, 2014 [facility] [address] [id number] [address] [place] [address], [place] [address] 13 Jun, 2014 [facility] [address] [id number] [address] [place] [address], [place] [address] 13 Jun, 2014 [facility] [address] [id number] [address] [place] [address], [place] [address] 06 Jun, 2014 [facility] [address] [id number] [address] [place] [address], [place] [address] 06 Jun, 2014 [facility] [address] [id number] [address] [place] [address], [place] [address] 26 May, 2013 [facility] [address] [id number] [address] [place] [address], [place] [address] 26 May, 2013 [facility] [address] [id number] [address] [place] [address], [place] [address] 22 May, 2013 [facility] [address] [id number] [address] [place] [address], [place] [address] 22 May, 2013 [facility] [address] [id number] [address] [place] [address], [place] [address] 04 Sep, 2013 [facility] [address] [id number] [address] [place] [address], [place] [address] May, [facility] [address] [id number] [facility] [place] [address] May, [facility] [address] [id number] [address] [place] [address], [place] [address] May, [facility] [address] [id number] [address] [place] [address], [place] [address] Apr, [facility] [address] [id number] [address] [place] [address], [place] [address] Apr, [facility] [address] [id number] [address] [place] [address], [place] [address] Apr, [facility] [address] [id number] [address] [place] [address], [place] [address] Apr, [facility] [address] [id number] [address] [place] [address], [place] [address] Apr, [facility] [address] [id number] [address] [place] [address], [place] [address] Apr, [facility] [address] [id number] [address] [place] [address], [place] [address] Apr, [facility] [address] [id number] [address] [place] [address], [place] [address] Apr, [facility] [address] [id number] [address] [place] [address], [place] [address] Apr, [facility] [address] [id number] [address] [place] [address], [place] [address] Mar, [facility] [address] [id number] [address] [place] [address], [place] [address] Mar, [facility] [address] [id number] [address] [place] [address], [place] [address] Mar, [facility] [address] [id number] [address] [place] [address], [place] [address] Feb, [facility] [address] [id number] [facility] [place] [address] 30 Feb, 2014 [facility] [address] [id number] [address] [place] [address], [place] [address] Feb, [facility] [address] [id number] [facility] [place] [address] 27 Feb, 2014 [facility] [address] [id number] [address] [place] [address], [place] [address] 17 Feb, 2014 [facility] [address] [id number] [address] [place] [address], [place] [address] 17 Feb, 2014 [facility] [address] [id number] [address] [place] [address], [place] [address] Feb, [facility] [address] [id number] [address] [place] [address], [place] [address] Feb, [facility] [address] [id number] [address] [place] [address], [place] [address] Feb, [facility] [address] [id number] [address] [place] [address], [place] [address] Feb, [facility] [address] [id number] [address] [place] [address], [place] [address] Feb, [facility] [address] [id number] [address] [place] [address], [place] [address] Feb, [facility] [address] [id number] [address] [place] [address], [place] [address] Feb, [facility] [address] [id number] [address] [place] [address], [place] [address] Feb, [facility] [address] [id number] [address] [place] [address], [place] [address] Feb, [facility] [address] [id number] [address] [place] [address], [place] [address] Feb, [facility] [address] [id number] [address] [place] [address], [place] [address] January, [facility] [address] [id number] [address] [place] [address], [place] [address] January, [facility] [address] [id number] [address] [place] [address], [place] [address] January, [facility] [address] [id number] [address] [place] [address], [place] [address] January, [facility] [address] [id number] [address] [place] [address], [place] [address] January, [facility] [address] [id number] [address] [place] [address], [place] [address] January, [facility] [address] [id number] [address] [place] [address], [place] [address] January, [facility] [address] [id number] [address] [place] [address], [place] [address] January, [facility] [address] [id number] [address] [place] [address], [place] [address] January, [facility] [address] [id number] [address] [place] [address], [place] [address] January, [facility] [address] [id number] [address] [place] [address], [place] [address] January, [facility] [address] [id number] [address] [place] [address], [place] [address] January, [facility] [address] [id number] [address] [place] [address], [place] [address] January, [facility] [address] [id number] [address] [place] [address], [place] [address] January, [facility] [address] [id number] [address] [place] [address], [place] [address] January, [facility] [address] [id number] [address] [place] [address], [place] [address] January, [facility] [address] [id number] [address] [place] [address], [place] [address] January, [facility] [address] [id number] [facility] [place] [address] January, [facility] [address] [id number] [address] [place] [address], [place] [address] January, [facility] [address] [id number] [address] [place] [address], [place] [address] January, [facility] [address] [id number] [address] [place] [address], [place] [address] January, [facility] [address] [id number] [address] [place] [address], [place] [address] January, [facility] [address] [id number] [address] [place] [address], [place] [address] January, [facility] [address] [id number] [address] [place] [address], [place] [address] January, [facility] [address] [id number] [address] [place] [address], [place] [address] January, [facility] [address] [id number] [address] [place] [address], [place] [address] January, [facility] [address] [id number] [address] [place] [address], [place] [address] Dec, [facility] [address] [id number] [address] [place] [address], [place] [address] Dec, [facility] [address] [id number] [address] [place] [address], [place] [address] Dec, [facility] [address] [id number] [address] [place] [address], [place] [address] Dec, [facility] [address] [id number] [address] [place] [address], [place] [address] Dec, [facility] [address] [id number] [address] [place] [address], [place] [address] Dec, [facility] [address] [id number] [facility] [place] [address] Dec, [facility] [address] [id number] [address] [place] [address], [place] [address] Dec, [facility] [address] [id number] [address] [place] [address], [place] [address] Dec, [facility] [address] [id number] [address] [place] [address], [place] [address] Dec, [facility] [address] [id number] [address] [place] [address], [place] [address] Dec, [facility] [address] [id number] [address] [place] [address], [place] [address] Dec, [facility] [address] [id number] [address] [place] [address], [place] [address] Dec, [facility] [address] [id number] [address] [place] [address], [place] [address] Dec, [facility] [address] [id number] [address] [place] [address], [place] [address] Dec, [facility] [address] [id number] [address] [place] [address], [place] [address] Dec, [facility] [address] [id number] [address] [place] [address], [place] [address] Dec, [facility] [address] [id number] [address] [place] [address], [place] [address] Dec, [facility] [address] [id number] [address] [place] [address], [place] [address] Dec, [facility] [address] [id number] [address] [place] [address], [place] [address] Dec, [facility] [address] [id number] [address] [place] [address], [place] [address] Dec, [facility] [address] [id number] [address] [place] [address], [place] [address] Dec, [facility] [address] [id number] [facility] [place] [address] 31 Nov, 2013 [facility] [address] [id number] [facility] [place] [address] 31 Nov, 2013 [facility] [address] [id number] [facility] [place] [address] Nov, [facility] [address] [id number] [address] [place] [address], [place] [address] Nov, [facility] [address] [id number] [facility] [place] [address] Nov, [facility] [address] [id number] [address] [place] [address], [place] [address] 24 Nov, 2013 [facility] [address] [id number] [address] [place] [address], [place] [address] Nov, [facility] [address] [id number] [address] [place] [address], [place] [address] Nov, [facility] [address] [id number] [address] [place] [address], [place] [address] 18 Nov, 2013 [facility] [address] [id number] [address] [place] [address], [place] [address] 18 Nov, 2013 [facility] [address] [id number] [address] [place] [address], [place] [address] 18 Nov, 2013 [facility] [address] [id number] [address] [place] [address], [place] [address] 18 Nov, 2013 [facility] [address] [id number] [address] [place] [address], [place] [address] 14 Nov, 2013 [facility] [address] [id number] [address] [place] [address], [place] [address] 14 Nov, 2013 [facility] [address] [id number] [address] [place] [address], [place] [address] 06 Nov, 2013 [facility] [address] [id number] [address] [place] [address], [place] [address] Nov, [facility] [address] [id number] [address] [place] [address], [place] [address] Oct, [facility] [address] [id number] [address] [place] [address], [place] [address] Oct, [facility] [address] [id number] [address] [place] [address], [place] [address] Oct, [facility] [address] [id number] [address] [place] [address], [place] [address] Oct, [facility] [address] [id number] [address] [place] [address], [place] [address] Oct, [facility] [address] [id number] [address] [place] [address], [place] [address] Oct, [facility] [address] [id number] [address] [place] [address], [place] [address] Oct, [facility] [address] [id number] [address] [place] [address], [place] [address] Oct, [facility] [address] [id number] [address] [place] [address], [place] [address] Oct, [facility] [address] [id number] [address] [place] [address], [place] [address] Oct, [facility] [address] [id number] [address] [place] [address], [place] [address] Oct, [facility] [address] [id number] [address] [place] [address], [place] [address] Oct, [facility] [address] [id number] [address] [place] [address], [place] [address] Oct, [facility] [address] [id number] [address] [place] [address], [place] [address] Oct, [facility] [address] [id number] [address] [place] [address], [place] [address] Oct, [facility] [address] [id number] [address] [place] [address], [place] [address] Sep, [facility] [address] [id number] [address] [place] [address], [place] [address] Sep, [facility] [address] [id number] [address] [place] [address], [place] [address] Sep, [facility] [address] [id number] [address] [place] [address], [place] [address] Sep, [facility] [address] [id number] [address] [place] [address], [place] [address] Sep, [facility] [address] [id number] [address] [place] [address], [place] [address] Sep, [facility] [address] [id number] [address] [place] [address], [place] [address] Sep, [facility] [address] [id number] [address] [place] [address], [place] [address] Sep, [facility] [address] [id number] [address] [place] [address], [place] [address] Sep, [facility] [address] [id number] [address] [place] [address], [place] [address] Sep, [facility] [address] [id number] [address] [place] [address], [place] [address] Sep, [facility] [address] [id number] [address] [place] [address], [place] [address] Sep, [facility] [address] [id number] [address] [place] [address], [place] [address] Sep, [facility] [address] [id number] [address] [place] [address], [place] [address] Aug, [facility] [address] [id number] [address] [place] [address], [place] [address] Aug, [facility] [address] [id number] [address] [place] [address], [place] [address] 24 Aug, 2013 [facility] [address] [id number] [address] [place] [address], [place] [address] 24 Aug, 2013 [facility] [address] [id number] [address] [place] [address], [place] [address] 17 Aug, 2013 [facility] [address] [id number] [address] [place] [address], [place] [address] 17 Aug, 2013 [facility] [address] [id number] [address] [place] [address], [place] [address] 16 Aug, 2013 [facility] [address] [id number] [address] [place] [address], [place] [address] 16 Aug, 2013 [facility] [address] [id number] [address] [place] [address], [place] [address] 12 Aug, 2013 [facility] [address] [id number] [address] [place] [address], [place] [address] Aug, [facility] [address] [id number] [address] [place] [address], [place] [address] 10 Aug, 2013 [facility] [address] [id number] [address] [place] [address], [place] [address] Aug, [facility] [address] [id number] [address] [place] [address], [place] [address] 02 Aug, 2013 [facility] [address] [id number] [address] [place] [address], [place] [address] Aug, [facility] [address] [id number] [address] [place] [address], [place] [address] Jul, [facility] [address] [id number] [address] [place] [address], [place] [address] Jul, [facility] [address] [id number] [address] [place] [address], [place] [address] 18 Jul, 2013 [facility] [address] [id number] [address] [place] [address], [place] [address] Jul, [facility] [address] [id number] [address] [place] [address], [place] [address] 14 Jul, 2013 [facility] [address] [id number] [address] [place] [address], [place] [address] 14 Jul, 2013 [facility] [address] [id number] [address] [place] [address], [place] [address] 14 Jul, 2013 [facility] [address] [id number] [address] [place] [address], [place] [address] 14 Jul, 2013 [facility] [address] [id number] [address] [place] [address], [place] [address] 07 Jul, 2013 [facility] [address] [id number] [address] [place] [address], [place] [address] 07 Jul, 2013 [facility] [address] [id number] [address] [place] [address], [place] [address] 06 Jul, 2013 [facility] [address] [id number] [address] [place] [id number] 06 Jul, 2013 [facility] [address] [id number] [address] [place] [address], [place] [address] 05 Jul, 2013 [facility] [address] [id number] [address] [place] [id number] 05 Jul, 2013 [facility] [address] [id number] [address] [place] [id number] 23 Jun, 2013 [facility] [address] [id number] [address] [place] [id number] 23 Jun, 2013 [facility] [address] [id number] [address] [place] [id number] 15 Jun, 2013 [facility] [address] [id number] [address] [place] [id number] 15 Jun, 2013 [facility] [address] [id number] [address] [place] [id number] 14 Jun, 2013 [facility] [address] [id number] [address] [place] [id number] 24 Sep, 2012 [facility] [address] [id number] [address] [place] [address], [place] [address] 20 Sep, 2012 [facility] [address] [id number] [address] [place] [address], [place] [address] 20 Sep, 2012 [facility] [address] [id number] [address] [place] [address], [place] [address] 20 Sep, 2012 [facility] [address] [id number] [address] [place] [address], [place] [address] 19 Sep, 2012 [facility] [address] [id number] [address] [place] [address], [place] [address] 13 May, 2012 [facility] [address] [id number] [address] [place] [address], [place] [address] 12 May, 2012 [facility] [address] [id number] [address] [place] [address], [place] [address] 12 May, 2012 [facility] [address] [id number] [address] [place] [address], [place] [address] 11 May, 2012 [facility] [address] [id number] [address] [place] [address], [place] [address] 11 May, 2012 [facility] [address] [id number] [address] [place] [address], [place] [address] 11 May, 2012 [facility] [address] [id number] [address] [place] [address], [place] [address] 09 Sep, 2012 [facility] [address] [id number] [address] [place] [address], [place] [address] 05 Sep, 2012 [facility] [address] [id number] [address] [place] [address], [place] [address] 04 Sep, 2012 [facility] [address] [id number] [address] [place] [address], [place] [address] 03 May, 2012 [facility] [address] [id number] [address] [place] [address], [place] [address] 27 Apr, 2012 [facility] [address] [id number] [facility] [place] [address] Apr, [facility] [address] [id number] [facility] [place] [address] Apr, [facility] [address] [id number] [facility] [place] [address] Apr, [facility] [address] [id number] [address] [place] [address], [place] [address] Apr, [facility] [address] [id number] [address] [place] [address], [place] [address] Apr, [facility] [address] [id number] [address] [place] [address], [place] [address] Apr, [facility] [address] [id number] [address] [place] [address], [place] [address] Apr, [facility] [address] [id number] [address] [place] [address], [place] [address] Apr, [facility] [address] [id number] [address] [place] [address], [place] [address] Mar, [facility] [address] [id number] [address] [place] [address], [place] [address] Mar, [facility] [address] [id number] [address] [place] [address], [place] [address] Mar, [facility] [address] [id number] [address] [place] [address], [place] [address] Mar, [facility] [address] [id number] [address] [place] [address], [place] [address] Mar, [facility] [address] [id number] [address] [place] [address], [place] [address] Mar, [facility] [address] [id number] [address] [place] [address], [place] [address] Mar, [facility] [address] [id number] [address] [place] [address], [place] [address] Mar, [facility] [address] [id number] [address] [place] [address], [place] [address] Mar, [facility] [address] [id number] [address] [place] [address], [place] [address] Mar, [facility] [address] [id number] [address] [place] [address], [place] [address] Mar, [facility] [address] [id number] [address] [place] [address], [place] [address] Feb, [facility] [address] [id number] [address] [place] [address], [place] [address] Feb, [facility] [address] [id number] [address] [place] [address], [place] [address] Feb, [facility] [address] [id number] [address] [place] [address], [place] [address] Feb, [facility] [address] [id number] [address] [place] [address], [place] [address] Feb, [facility] [address] [id number] [address] [place] [address], [place] [address] Feb, [facility] [address] [id number] [address] [place] [address], [place] [address] Feb, [facility] [address] [id number] [address] [place] [address], [place] [address] Feb, [facility] [address] [id number] [address] [place] [address], [place] [address] Feb, [facility] [address] [id number] [address] [place] [address], [place] [address] January, [facility] [address] [id number] [address] [place] [address], [place] [address] January, [facility] [address] [id number] [address] [place] [address], [place] [address] January, [facility] [address] [id number] [address] [place] [address], [place] [address] January, [facility] [address] [id number] [address] [place] [address], [place] [address] January, [facility] [address] [id number] [address] [place] [address], [place] [address] January, [facility] [address] [id number] [address] [place] [address], [place] [address] January, [facility] [address] [id number] [address] [place] [address], [place] [address] January, [facility] [address] [id number] [address] [place] [address], [place] [address] January, [facility] [address] [id number] [address] [place] [address], [place] [address] January, [facility] [address] [id number] [address] [place] [address], [place] [address] January, [facility] [address] [id number] [address] [place] [address], [place] [address] January, [facility] [address] [id number] [address] [place] [address], [place] [address] January, [facility] [address] [id number] [address] [place] [address], [place] [address] January, [facility] [address] [id number] [address] [place] [address], [place] [address] January, [facility] [address] [id number] [address] [place] [address], [place] [address] January, [facility] [address] [id number] [address] [place] [address], [place] [address] January, [facility] [address] [id number] [address] [place] [address], [place] [address] January, [facility] [address] [id number] [address] [place] [address], [place] [address] January, [facility] [address] [id number] [address] [place] [address], [place] [address] January, [facility] [address] [id number] [address] [place] [address], [place] [address] January, [facility] [address] [id number] [address] [place] [address], [place] [address] January, [facility] [address] [id number] [address] [place] [address], [place] [address] January, [facility] [address] [id number] [address] [place] [address], [place] [address] Dec, [facility] [address] [id number] [address] [place] [address], [place] [address] Dec, [facility] [address] [id number] [address] [place] [address], [place] [address] Dec, [facility] [address] [id number] [address] [place] [address], [place] [address] Dec, [facility] [address] [id number] [address] [place] [address], [place] [address] Dec, [facility] [address] [id number] [address] [place] [address], [place] [address] Nov, [facility] [address] [id number] [address] [place] [address], [place] [address] Oct, [facility] [address] [id number] [address] [place] [address], [place] [address] Oct, [facility] [address] [id number] [address] [place] [address], [place] [address] Oct, [facility] [address] [id number] [address] [place] [address], [place] [address] Oct, [facility] [address] [id number] [address] [place] [address], [place] [address] Oct, [facility] [address] [id number] [address] [place] [id number] Sep, [facility] [address] [id number] [address] [place] [address], [place] [address] Sep, [facility] [address] [id number] [address] [place] [id number] Sep, [facility] [address] [id number] [address] [place] [address], [place] [address] Aug, [facility] [address] [id number] [address] [place] [address], [place] [address] Aug, [facility] [address] [id number] [address] [place] [address], [place] [address] Aug, [facility] [address] [id number] [address] [place] [address], [place] [address] Aug, [facility] [address] [id number] [address] [place] [address], [place] [address] Jul, [facility] [address] [id number] [address] [place] [address], [place] [address] Jul, [facility] [address] [id number] [address] [place] [address], [place] [address] Jul, [facility] [address] [id number] [address] [place] [address], [place] [address] Jul, [facility] [address] [id number] [address] [place] [address], [place] [address] Jul, [facility] [address] [id number] [address] [place] [id number] Jul, [facility] [address] [id number] [address] [place] [address], [place] [address] Jun, [facility] [address] [id number] [address] [place] [address], [place] [address] Jun, [facility] [address] [id number] [address] [place] [id number] Jun, [facility] [address] [id number] [address] [place] [address], [place] [address] Jun, [facility] [address] [id number] [address] [place] [address], [place] [address] Jun, [facility] [address] [id number] [address] [place] [address], [place] [address] Jun, [facility] [address] [id number] [address] [place] [address], [place] [address] Jun, [facility] [address] [id number] [address] [place] [address], [place] [address] Jun, [facility] [address] [id number] [address] [place] [address], [place] [address] Jun, [facility] [address] [id number] [address] [place] [address], [place] [address] Jun, [facility] [address] [id number] [address] [place] [address], [place] [address] May, [facility] [address] [id number] [address] [place] [address], [place] [address] 08 May, 2012 [facility] [address] [id number] [address] [place] [address], [place] [address] May, [facility] [address] [id number] [address] [place] [address], [place] [address] 30 Apr, 2012 [facility] [address] [id number] [address] [place] [address], [place] [address] Apr, [facility] [address] [id number] [address] [place] [address], [place] [address] 14 Apr, 2012 [facility] [address] [id number] [address] [place] [address], [place] [address] Apr, [facility] [address] [id number] [address] [place] [address], [place] [address] Apr, [facility] [address] [id number] [address] [place] [address], [place] [address] Apr, [facility] [address] [id number] [address] [place] [address], [place] [address] Apr, [facility] [address] [id number] [address] [place] [address], [place] [address] Apr, [facility] [address] [id number] [address] [place] [address], [place] [address] Apr, [facility] [address] [id number] [address] [place] [address], [place] [address] Mar, [facility] [address] [id number] [address] [place] [address], [place] [address] Mar, [facility] [address] [id number] [address] [place] [address], [place] [address] Mar, [facility] [address] [id number] [address] [place] [address], [place] [address] Mar, [facility] [address] [id number] [address] [place] [address], [place] [address] Feb, [facility] [address] [id number] [address] [place] [address], [place] [address] Feb, [facility] [address] [id number] [address] [place] [address], [place] [address] Feb, [facility] [address] [id number] [address] [place] [address], [place] [id number] January, [facility] [address] [id number] [address] [place] [address], [place] [id number] January, [facility] [address] [id number] [address] [place] [address], [place] [address] January, [facility] [address] [id number] [address] [place] [address], [place] [address] January, [facility] [address] [id number] [address] [place] [address], [place] [address] January, [facility] [address] [id number] [address] [place] [address], [place] [address] 30 Dec, 2011 [facility] [address] [id number] [address] [place] [address], [place] [address] Dec, [facility] [address] [id number] [address] [place] [address], [place] [id number] 16 Dec, 2011 [facility] [address] [id number] [address] [place] [address], [place] [address] Oct, [facility] [address] [id number] [address] [place] [address], [place] [address] Oct, [facility] [address] [id number] [address] [place] [address], [place] [address] Oct, [facility] [address] [id number] [address] [place] [address], [place] [address] Sep, [facility] [address] [id number] [address] [place] [address], [place] [address] Sep, [facility] [address] [id number] [address] [place] [address], [place] [address] Aug, [facility] [address] [id number] [address] [place] [address], [place] [address] Jul, [facility] [address] [id number] [address] [place] [address], [place] [address] Jul, [facility] [address] [id number] [address] [place] [address], [place] [address] Mar, [facility] [address] [id number] [address] [place] [address], [place] [address] Aug, [facility] [address] [id number] [address] [place] [address], [place] [address] Jul, [facility] [address] [id number] [address] [place] [address], [place] [address] Jul, [facility] [address] [id number] [address] [place] [address], [place] [address] Jul, [facility] [address] [id number] [address] [place] [id number] 04 Jul, 2010 [facility] [address] [id number] [address] [place] [address], [place] [address] 14 Jun, 2010 [facility] [address] [id number] [address] [place] [id number] 12 Jun, 2010 [facility] [address] [id number] [address] [place] [id number] 17 Apr, 2010 [facility] [address] [id number] [address] [place] [address], [place] [address] Aug, [facility] [address] [id number] [address] [place] [id number] 17 Jul, 2009 [facility] [address] [id number] [address] [place] [id number] 17 Jul, 2009 [facility] [address] [id number] [address] [place] [id number] Jul, [facility] [address] [id number] [address] [place] [id number] 23 Jun, 2009 [facility] [address] [id number] [address] [place] [id number] 10 May, 2009 [facility] [address] [id number] [address] [place] [id number] 14 Dec, 2008 [facility] [address] [id number] [address] [place] [id number] Nov, [facility] [address] [id number] [address] [place] [id number] 10 Oct, 2008 [facility] [address] [id number] [address] [place] [id number] 05 Aug, 2008 [facility] [address] [id number] [address] [place] [id number] 03 Aug, 2008 [facility] [address] [id number] [address] [place] [id number] Jun, IMMUNIZATIONS No Known Immunizations SOCIAL HISTORY Never Assessed REASON FOR VISIT PLAN OF CARE VITAL SIGNS Height 66 in 2012-03-17 Weight 310.06 lbs 2012-03-17 Temperature 99 degrees Fahrenheit 2012-03-17 Heart Rate 96 bpm 2012-03-17 Respiratory Rate 28 2012-03-17 Blood pressure systolic 100 mmHg 2012-03-17 Blood pressure diastolic 60 mmHg 2012-03-17 MEDICATIONS Unknown Medications RESULTS No Results PROCEDURES [...] x 3 day s 04/2012 Hospitalization History [facility] [place]- Right wrist injury 03/29/2018
--- OUTSIDE RECORDS SUMMARY | 2020-04-09 00:13 | XMS REPORT ---
Author Author Kateryna LAURENT Organization [facility], [place] Address [address] [place] [address] Care Team Providers Care Parts Room Associate Name Role Phone YAMILETH LAURENT Unavailable PROBLEMS Type Condition ICD9-CM Code MFL73-DZ Code Onset Dates Condition S tatus SNOMED Code Problem Irregular menses N92.6 Active 801 29182 Problem Migraine with aura and without status migrainosu s, not intractable G43.109 Active 8228860 Problem Uncontrolled type 2 diabetes mellitus with hyperglycemia E11.65 Active 600221789 Problem Morbid obesity due to excess calories E66.01 Active 454776102 Problem RLS (restless legs syndrome) G25.81 A ctive 86826251 Problem Morbid obesity E66.01 Active 17346 6002 ALLERGIES No Information ENCOUNTERS Encounter Location Date Diagnosis [facility] [place] [address] [facility] [id number] [address] [place] [phone] Dec, [facility] [place] [address] [facility] [id number] [address] [place] [address] Dec, [facility] [place] [address] [facility] [id number] [address] [place] [address] Dec, Uncontrolled type 2 diabetes mellitus with hyperglycemia E11.65 [facility] [place] [address] [facility] [id number] [address] [place] [address] 07 Dec, 2019 [facility] [place] [address] [facility] [id number] [address] [place] [address] Dec, [facility] [place] [address] [facility] [id number] [address] [place] [address] Dec, [facility] [place] [address] [facility] [id number] [address] [place] [address] Nov, [facility] [place] [address] [id number] [address] [place] [address] 28 Nov, 2019 [facility] [place] [address] [id number] [address] [place] [address] 03 Nov, 2019 [facility] [place] [address] [facility] [id number] [address] [place] [address] 02 Nov, 2019 RLS (restless legs syndrome) G25.81 [facility] [place] [address] [id number] [address] [place] [address] 15 Oct, 2019 [facility] [address] [id number] [address] [place] [address] 09 Oct, 2019 Influenza J11.1 [facility] [place] [address] [facility] [id number] [address] [place] [address] 16 Sep, 2019 [facility] [place] [address] [facility] [id number] [address] [place] [address] 14 Sep, 2019 [facility] [place] [address] [facility] [id number] [address] [place] [address] 14 Sep, 2019 [facility] [place] [address] [facility] [id number] [address] [place] [address] 13 Sep, 2019 [facility] [place] [address] [facility] [id number] [address] [place] [address] 10 Sep, 2019 Pneumonia of left lower lobe due to infectious organism J18.9 and Migraine with aura and without status migrainosus, not intractable G43.109 [facility] [place] [address] [id number] [address] [place] [address] 10 Sep, 2019 [facility] [place] [address] [facility] [id number] [address] [place] [address] 10 Sep, 2019 [facility] [place] [address] [facility] [id number] [address] [place] [id number] 08 Sep, 2019 [facility] [place] [address] [facility] [id number] [address] [place] [address] 08 Sep, 2019 [facility] [place] [address] [facility] [id number] [address] [place] [address] Sep, Pneumonia of left lower lobe due to infectious organism J18.9 and Migraine with aura and without status migrainosus, not intractable G43.109 [facility] [place] [address] [id number] [address] [place] [address] Aug, Irregular menses N92.6 ; Wel l woman exam Z01.419 ; Pelvic cramping R10.2 and Left breast lump N63.20 [facility] [place] [address] [id number] [address] [place] [address] Aug, [facility] [place] [address] [id number] [address] [place] [address] Aug, Well woman exam Z01.419 ; Le ft breast lump N63.20 ; Irregular menses N92.6 ; Encounter for immunization Z23 ; Pelvic cramping R10.2 and Screening for cervical cancer Z12.4 [facility] [place] [address] [facility] [id number] [address] [place] [id number] Aug, [facility] [place] [address] [facility] [id number] [address] [place] [address] Aug, [facility] [place] [address] [facility] [id number] [address] [place] [address] Aug, [facility] [place] [address] [facility] [id number] [address] [place] [address] Jul, [facility] [place] [address] [facility] [id number] [address] [place] [address] Jun, [facility] [place] [address] [id number] [address] [place] [address] Jun, [facility] [place] [address] [facility] [id number] [address] [place] [address] Jun, [facility] [place] [address] [facility] [id number] [address] [place] [address] Jun, BMI 50.0-59.9, adult Z68.43 [facility] [place] [address] [place] [id number] [address] [place] [address] Jun, [facility] [address] [address] May, Acute non-recurrent sinusiti s, unspecified location J01.90 ; Diarrhea, unspecified R19.7 ; Vomiting, unspecified R11.10 and Morbid obesity E66.01 [place] [address] [address] Apr, [place] [address] [address] Apr, Anemia due to other cause, n ot classified D64.89 and D-dimer, elevated R79.89 [place] [address] [address] Apr, [place] [address] [address] Apr, [place] [address] [address] Mar, Anemia due to other cause, n ot classified D64.89 and D-dimer, elevated R79.89 [place] [address] [address] Mar, Leg edema, right R60.0 ; Hig h risk medication use Z79.899 and Morbid obesity E66.01 [facility] [place] [address] [address] Mar, BMI 50.0-59.9, adult Z68.43 [place] [address] [address] Mar, [place] [address] [address] January, Uncontrolled type 2 diabetes mellitus with hyperglycemia E11.65 ; RLS (restless legs syndrome) G25.81 and Morbid obesity E66.01 [facility] [place] [address] [id number] [address] [place] [address] Oct, Lipoma of right lower extrem ity D17.23 [facility] [place] [address] [id number] [address] [place] [address] Oct, Lipoma of right lower extrem ity D17.23 [facility] [place] [address] [id number] [address] [place] [address] Sep, [facility] [place] [address] [id number] [address] [place] [address] Sep, [facility] [place] [address] [id number] [address] [place] [address] Sep, [facility] [place] [address] [facility] [id number] [address] [place] [address] Sep, [facility] [place] [address] [facility] [id number] [address] [place] [address] Sep, [facility] [place] [address] [facility] [id number] [address] [place] [address] Aug, Uncontrolled type 2 diabetes mellitus with hyperglycemia E11.65 ; Morbid obesity due to excess calories E66.01 ; Lipoma of torso D17.1 and BMI 50.0-59.9, adult Z68.43 [facility] [place] [address] [facility] [id number] [address] [place] [address] Jun, Encounter for immunization Z 23 [facility] [place] [address] [id number] [address] [place] [address] Jul, [facility] [place] [address] [facility] [id number] [address] [place] [address] Jun, Encounter for immunization Z 23 [facility] [place] [address] [id number] [address] [place] [address] May, [facility] [place] [address] [facility] [id number] [address] [place] [address] Jun, Encounter for immunization Z 23 [facility] [address] [id number] [address] [place] [address], [place] [address] 29 May, 2015 [facility] [address] [id number] [address] [place] [address], [place] [address] May, [facility] [address] [id number] [address] [place] [address], [place] [address] Apr, [facility] [address] [id number] [address] [place] [address], [place] [address] Feb, [facility] [address] [id number] [address] [place] [address], [place] [address] Feb, [facility] [address] [id number] [address] [place] [address] Feb, [facility] [address] [id number] [address] [place] [address], [place] [address] January, [facility] [address] [id number] [address] [place] [address] January, [facility] [address] [id number] [address] [place] [address], [place] [address] Dec, [facility] [address] [id number] [address] [place] [address] Dec, [facility] [address] [id number] [address] [place] [address] Nov, [facility] [address] [id number] [address] [place] [address] Nov, [facility] [address] [id number] [address] [place] [address] Nov, [facility] [address] [id number] [address] [place] [address] Nov, [facility] [address] [id number] [address] [place] [address] Nov, [facility] [address] [id number] [address] [place] [address], [place] [address] Nov, [facility] [address] [id number] [address] [place] [address], [place] [address] Nov, [facility] [address] [id number] [address] [place] [address], [place] [address] 18 Oct, 2014 [facility] [address] [id number] [address] [place] [address], [place] [address] Oct, 2014 [facility] [address] [id number] [address] [place] [address], [place] [address] Oct, [facility] [address] [id number] [address] [place] [address], [place] [address] Oct, [facility] [address] [id number] [address] [place] [address], [place] [address] Oct, [facility] [address] [id number] [address] [place] [address], [place] [address] Sep, [facility] [address] [id number] [address] [place] [address], [place] [address] Sep, [facility] [address] [id number] [address] [place] [address], [place] [address] Sep, [facility] [address] [id number] [address] [place] [address], [place] [address] Sep, [facility] [address] [id number] [address] [place] [address], [place] [address] Sep, [facility] [address] [id number] [address] [place] [address], [place] [address] Sep, [facility] [address] [id number] [address] [place] [address], [place] [address] Sep, [facility] [address] [id number] [address] [place] [address], [place] [address] Sep, [facility] [address] [id number] [address] [place] [address], [place] [address] Sep, [facility] [address] [id number] [address] [place] [address], [place] [address] Sep, [facility] [address] [id number] [address] [place] [address], [place] [address] Aug, [facility] [address] [id number] [address] [place] [address], [place] [address] Aug, [facility] [address] [id number] [address] [place] [address], [place] [address] Aug, [facility] [address] [id number] [address] [place] [address], [place] [address] Aug, [facility] [address] [id number] [address] [place] [address], [place] [address] Aug, [facility] [address] [id number] [address] [place] [address], [place] [address] Aug, [facility] [address] [id number] [address] [place] [address], [place] [address] Aug, [facility] [address] [id number] [address] [place] [address], [place] [address] Aug, [facility] [address] [id number] [address] [place] [address], [place] [address] Aug, [facility] [address] [id number] [address] [place] [address], [place] [address] Aug, [facility] [address] [id number] [address] [place] [address], [place] [address] Aug, [facility] [address] [id number] [address] [place] [address], [place] [address] Aug, [facility] [address] [id number] [address] [place] [address], [place] [address] Aug, [facility] [address] [id number] [address] [place] [address], [place] [address] Aug, [facility] [address] [id number] [address] [place] [address], [place] [address] 17 Aug, 2014 [facility] [address] [id number] [address] [place] [address], [place] [address] 17 Aug, 2014 [facility] [address] [id number] [address] [place] [address], [place] [address] 16 Aug, 2014 [facility] [address] [id number] [address] [place] [address], [place] [address] 16 Aug, 2014 [facility] [address] [id number] [address] [place] [address], [place] [address] Aug, [facility] [address] [id number] [address] [place] [address], [place] [address] Aug, [facility] [address] [id number] [address] [place] [address], [place] [address] Aug, [facility] [address] [id number] [address] [place] [address], [place] [address] 08 Aug, 2014 [facility] [address] [id number] [address] [place] [address], [place] [address] 05 Aug, 2014 [facility] [address] [id number] [address] [place] [address], [place] [address] 05 Aug, 2014 [facility] [address] [id number] [address] [place] [address], [place] [address] Jul, [facility] [address] [id number] [address] [place] [address], [place] [address] Jul, [facility] [address] [id number] [address] [place] [address], [place] [address] Jun, [facility] [address] [id number] [address] [place] [address], [place] [address] Jun, [facility] [address] [id number] [address] [place] [address], [place] [address] Jun, [facility] [address] [id number] [address] [place] [address], [place] [address] Jun, [facility] [address] [id number] [address] [place] [address], [place] [address] 15 Jun, 2014 [facility] [address] [id number] [address] [place] [address], [place] [address] 15 Jun, 2014 [facility] [address] [id number] [address] [place] [address], [place] [address] 14 Jun, 2014 [facility] [address] [id number] [address] [place] [address], [place] [address] 14 Jun, 2014 [facility] [address] [id number] [address] [place] [address], [place] [address] 13 Jun, 2014 [facility] [address] [id number] [address] [place] [address], [place] [address] 13 Jun, 2014 [facility] [address] [id number] [address] [place] [address], [place] [address] 13 Jun, 2014 [facility] [address] [id number] [address] [place] [address], [place] [address] 13 Jun, 2014 [facility] [address] [id number] [address] [place] [address], [place] [address] 06 Jun, 2014 [facility] [address] [id number] [address] [place] [address], [place] [address] 06 Jun, 2014 [facility] [address] [id number] [address] [place] [address], [place] [address] 26 May, 2013 [facility] [address] [id number] [address] [place] [address], [place] [address] 26 May, 2013 [facility] [address] [id number] [address] [place] [address], [place] [address] 22 May, 2013 [facility] [address] [id number] [address] [place] [address], [place] [address] 22 May, 2013 [facility] [address] [id number] [address] [place] [address], [place] [address] 04 Sep, 2013 [facility] [address] [id number] [address] [place] [address], [place] [address] May, [facility] [address] [id number] [facility] [place] [address] May, [facility] [address] [id number] [address] [place] [address], [place] [address] May, [facility] [address] [id number] [address] [place] [address], [place] [address] Apr, [facility] [address] [id number] [address] [place] [address], [place] [address] Apr, [facility] [address] [id number] [address] [place] [address], [place] [address] Apr, [facility] [address] [id number] [address] [place] [address], [place] [address] Apr, [facility] [address] [id number] [address] [place] [address], [place] [address] Apr, [facility] [address] [id number] [address] [place] [address], [place] [address] Apr, [facility] [address] [id number] [address] [place] [address], [place] [address] Apr, [facility] [address] [id number] [address] [place] [address], [place] [address] Apr, [facility] [address] [id number] [address] [place] [address], [place] [address] Apr, [facility] [address] [id number] [address] [place] [address], [place] [address] Mar, [facility] [address] [id number] [address] [place] [address], [place] [address] Mar, [facility] [address] [id number] [address] [place] [address], [place] [address] Mar, [facility] [address] [id number] [address] [place] [address], [place] [address] Feb, [facility] [address] [id number] [facility] [place] [address] 30 Feb, 2014 [facility] [address] [id number] [address] [place] [address], [place] [address] Feb, [facility] [address] [id number] [facility] [place] [address] 27 Feb, 2014 [facility] [address] [id number] [address] [place] [address], [place] [address] 17 Feb, 2014 [facility] [address] [id number] [address] [place] [address], [place] [address] 17 Feb, 2014 [facility] [address] [id number] [address] [place] [address], [place] [address] Feb, [facility] [address] [id number] [address] [place] [address], [place] [address] Feb, [facility] [address] [id number] [address] [place] [address], [place] [address] Feb, [facility] [address] [id number] [address] [place] [address], [place] [address] Feb, [facility] [address] [id number] [address] [place] [address], [place] [address] Feb, [facility] [address] [id number] [address] [place] [address], [place] [address] Feb, [facility] [address] [id number] [address] [place] [address], [place] [address] Feb, [facility] [address] [id number] [address] [place] [address], [place] [address] Feb, [facility] [address] [id number] [address] [place] [address], [place] [address] Feb, [facility] [address] [id number] [address] [place] [address], [place] [address] Feb, [facility] [address] [id number] [address] [place] [address], [place] [address] January, [facility] [address] [id number] [address] [place] [address], [place] [address] January, [facility] [address] [id number] [address] [place] [address], [place] [address] January, [facility] [address] [id number] [address] [place] [address], [place] [address] January, [facility] [address] [id number] [address] [place] [address], [place] [address] January, [facility] [address] [id number] [address] [place] [address], [place] [address] January, [facility] [address] [id number] [address] [place] [address], [place] [address] January, [facility] [address] [id number] [address] [place] [address], [place] [address] January, [facility] [address] [id number] [address] [place] [address], [place] [address] January, [facility] [address] [id number] [address] [place] [address], [place] [address] January, [facility] [address] [id number] [address] [place] [address], [place] [address] January, [facility] [address] [id number] [address] [place] [address], [place] [address] January, [facility] [address] [id number] [address] [place] [address], [place] [address] January, [facility] [address] [id number] [address] [place] [address], [place] [address] January, [facility] [address] [id number] [address] [place] [address], [place] [address] January, [facility] [address] [id number] [address] [place] [address], [place] [address] January, [facility] [address] [id number] [address] [place] [address], [place] [address] January, [facility] [address] [id number] [facility] [place] [address] January, [facility] [address] [id number] [address] [place] [address], [place] [address] January, [facility] [address] [id number] [address] [place] [address], [place] [address] January, [facility] [address] [id number] [address] [place] [address], [place] [address] January, [facility] [address] [id number] [address] [place] [address], [place] [address] January, [facility] [address] [id number] [address] [place] [address], [place] [address] January, [facility] [address] [id number] [address] [place] [address], [place] [address] January, [facility] [address] [id number] [address] [place] [address], [place] [address] January, [facility] [address] [id number] [address] [place] [address], [place] [address] January, [facility] [address] [id number] [address] [place] [address], [place] [address] Dec, [facility] [address] [id number] [address] [place] [address], [place] [address] Dec, [facility] [address] [id number] [address] [place] [address], [place] [address] Dec, [facility] [address] [id number] [address] [place] [address], [place] [address] Dec, [facility] [address] [id number] [address] [place] [address], [place] [address] Dec, [facility] [address] [id number] [address] [place] [address], [place] [address] Dec, [facility] [address] [id number] [facility] [place] [address] Dec, [facility] [address] [id number] [address] [place] [address], [place] [address] Dec, [facility] [address] [id number] [address] [place] [address], [place] [address] Dec, [facility] [address] [id number] [address] [place] [address], [place] [address] Dec, [facility] [address] [id number] [address] [place] [address], [place] [address] Dec, [facility] [address] [id number] [address] [place] [address], [place] [address] Dec, [facility] [address] [id number] [address] [place] [address], [place] [address] Dec, [facility] [address] [id number] [address] [place] [address], [place] [address] Dec, [facility] [address] [id number] [address] [place] [address], [place] [address] Dec, [facility] [address] [id number] [address] [place] [address], [place] [address] Dec, [facility] [address] [id number] [address] [place] [address], [place] [address] Dec, [facility] [address] [id number] [address] [place] [address], [place] [address] Dec, [facility] [address] [id number] [address] [place] [address], [place] [address] Dec, [facility] [address] [id number] [address] [place] [address], [place] [address] Dec, [facility] [address] [id number] [address] [place] [address], [place] [address] Dec, [facility] [address] [id number] [address] [place] [address], [place] [address] Dec, [facility] [address] [id number] [facility] [place] [address] 31 Nov, 2013 [facility] [address] [id number] [facility] [address] 31 Nov, 2013 [facility] [address] [id number] [facility] [place] [address] Nov, [facility] [address] [id number] [address] [place] [address], [place] [address] Nov, [facility] [address] [id number] [facility] [address] Nov, [facility] [address] [id number] [address] [place] [address], [place] [address] 24 Nov, 2013 [facility] [address] [id number] [address] [place] [address], [place] [address] Nov, [facility] [address] [id number] [address] [place] [address], [place] [address] Nov, [facility] [address] [id number] [address] [place] [address], [place] [address] 18 Nov, 2013 [facility] [address] [id number] [address] [place] [address], [place] [address] 18 Nov, 2013 [facility] [address] [id number] [address] [place] [address], [place] [address] 18 Nov, 2013 [facility] [address] [id number] [address] [place] [address], [place] [address] 18 Nov, 2013 [facility] [address] [id number] [address] [place] [address], [place] [address] 14 Nov, 2013 [facility] [address] [id number] [address] [place] [address], [place] [address] 14 Nov, 2013 [facility] [address] [id number] [address] [place] [address], [place] [address] 06 Nov, 2013 [facility] [address] [id number] [address] [place] [address], [place] [address] Nov, [facility] [address] [id number] [address] [place] [address], [place] [address] Oct, [facility] [address] [id number] [address] [place] [address], [place] [address] Oct, [facility] [address] [id number] [address] [place] [address], [place] [address] Oct, [facility] [address] [id number] [address] [place] [address], [place] [address] Oct, [facility] [address] [id number] [address] [place] [address], [place] [address] Oct, [facility] [address] [id number] [address] [place] [address], [place] [address] Oct, [facility] [address] [id number] [address] [place] [address], [place] [address] Oct, [facility] [address] [id number] [address] [place] [address], [place] [address] Oct, [facility] [address] [id number] [address] [place] [address], [place] [address] Oct, [facility] [address] [id number] [address] [place] [address], [place] [address] Oct, [facility] [address] [id number] [address] [place] [address], [place] [address] Oct, [facility] [address] [id number] [address] [place] [address], [place] [address] Oct, [facility] [address] [id number] [address] [place] [address], [place] [address] Oct, [facility] [address] [id number] [address] [place] [address], [place] [address] Oct, [facility] [address] [id number] [address] [place] [address], [place] [address] Oct, [facility] [address] [id number] [address] [place] [address], [place] [address] Sep, [facility] [address] [id number] [address] [place] [address], [place] [address] Sep, [facility] [address] [id number] [address] [place] [address], [place] [address] Sep, [facility] [address] [id number] [address] [place] [address], [place] [address] Sep, [facility] [address] [id number] [address] [place] [address], [place] [address] Sep, [facility] [address] [id number] [address] [place] [address], [place] [address] Sep, [facility] [address] [id number] [address] [place] [address], [place] [address] Sep, [facility] [address] [id number] [address] [place] [address], [place] [address] Sep, [facility] [address] [id number] [address] [place] [address], [place] [address] Sep, [facility] [address] [id number] [address] [place] [address], [place] [address] Sep, [facility] [address] [id number] [address] [place] [address], [place] [address] Sep, [facility] [address] [id number] [address] [place] [address], [place] [address] Sep, [facility] [address] [id number] [address] [place] [address], [place] [address] Sep, [facility] [address] [id number] [address] [place] [address], [place] [address] Aug, [facility] [address] [id number] [address] [place] [address], [place] [address] Aug, [facility] [address] [id number] [address] [place] [address], [place] [address] 24 Aug, 2013 [facility] [address] [id number] [address] [place] [address], [place] [address] 24 Aug, 2013 [facility] [address] [id number] [address] [place] [address], [place] [address] 17 Aug, 2013 [facility] [address] [id number] [address] [place] [address], [place] [address] 17 Aug, 2013 [facility] [address] [id number] [address] [place] [address], [place] [address] 16 Aug, 2013 [facility] [address] [id number] [address] [place] [address], [place] [address] 16 Aug, 2013 [facility] [address] [id number] [address] [place] [address], [place] [address] 12 Aug, 2013 [facility] [address] [id number] [address] [place] [address], [place] [address] Aug, [facility] [address] [id number] [address] [place] [address], [place] [address] 10 Aug, 2013 [facility] [address] [id number] [address] [place] [address], [place] [address] Aug, [facility] [address] [id number] [address] [place] [address], [place] [address] 02 Aug, 2013 [facility] [address] [id number] [address] [place] [address], [place] [address] Aug, [facility] [address] [id number] [address] [place] [address], [place] [address] Jul, [facility] [address] [id number] [address] [place] [address], [place] [address] Jul, [facility] [address] [id number] [address] [place] [address], [place] [address] 18 Jul, 2013 [facility] [address] [id number] [address] [place] [address], [place] [address] Jul, [facility] [address] [id number] [address] [place] [address], [place] [address] 14 Jul, 2013 [facility] [address] [id number] [address] [place] [address], [place] [address] 14 Jul, 2013 [facility] [address] [id number] [address] [place] [address], [place] [address] 14 Jul, 2013 [facility] [address] [id number] [address] [place] [address], [place] [address] 14 Jul, 2013 [facility] [address] [id number] [address] [place] [address], [place] [address] 07 Jul, 2013 [facility] [address] [id number] [address] [place] [address], [place] [address] 07 Jul, 2013 [facility] [address] [id number] [address] [place] [address], [place] [address] 06 Jul, 2013 [facility] [address] [id number] [address] [place] [address] 06 Jul, 2013 [facility] [address] [id number] [address] [place] [address], [place] [address] 05 Jul, 2013 [facility] [address] [id number] [address] [place] [address] 05 Jul, 2013 [facility] [address] [id number] [address] [place] [address] 23 Jun, 2013 [facility] [address] [id number] [address] [place] [address] 23 Jun, 2013 [facility] [address] [id number] [address] [place] [address] 15 Jun, 2013 [facility] [address] [id number] [address] [place] [address] 15 Jun, 2013 [facility] [address] [id number] [address] [place] [address] 14 Jun, 2013 [facility] [address] [id number] [address] [place] [address] 24 Sep, 2012 [facility] [address] [id number] [address] [place] [address], [place] [address] 20 Sep, 2012 [facility] [address] [id number] [address] [place] [address], [place] [address] 20 Sep, 2012 [facility] [address] [id number] [address] [place] [address], [place] [address] 20 Sep, 2012 [facility] [address] [id number] [address] [place] [address], [place] [address] 19 Sep, 2012 [facility] [address] [id number] [address] [place] [address], [place] [address] 13 May, 2012 [facility] [address] [id number] [address] [place] [address], [place] [address] 12 May, 2012 [facility] [address] [id number] [address] [place] [address], [place] [address] 12 May, 2012 [facility] [address] [id number] [address] [place] [address], [place] [address] 11 May, 2012 [facility] [address] [id number] [address] [place] [address], [place] [address] 11 May, 2012 [facility] [address] [id number] [address] [place] [address], [place] [address] 11 May, 2012 [facility] [address] [id number] [address] [place] [address], [place] [address] 09 Sep, 2012 [facility] [address] [id number] [address] [place] [address], [place] [address] 05 Sep, 2012 [facility] [address] [id number] [address] [place] [address], [place] [address] 04 Sep, 2012 [facility] [address] [id number] [address] [place] [address], [place] [address] 03 May, 2012 [facility] [address] [id number] [address] [place] [address], [place] [address] 27 Apr, 2012 [facility] [address] [id number] [facility] [place] [address] Apr, [facility] [address] [id number] [facility] [place] [address] Apr, [facility] [address] [id number] [facility] [place] [address] Apr, [facility] [address] [id number] [address] [place] [address], [place] [address] Apr, [facility] [address] [id number] [address] [place] [address], [place] [address] Apr, [facility] [address] [id number] [address] [place] [address], [place] [address] Apr, [facility] [address] [id number] [address] [place] [address], [place] [address] Apr, [facility] [address] [id number] [address] [place] [address], [place] [address] Apr, [facility] [address] [id number] [address] [place] [address], [place] [address] Mar, [facility] [address] [id number] [address] [place] [address], [place] [address] Mar, [facility] [address] [id number] [address] [place] [address], [place] [address] Mar, [facility] [address] [id number] [address] [place] [address], [place] [address] Mar, [facility] [address] [id number] [address] [place] [address], [place] [address] Mar, [facility] [address] [id number] [address] [place] [address], [place] [address] Mar, [facility] [address] [id number] [address] [place] [address], [place] [address] Mar, [facility] [address] [id number] [address] [place] [address], [place] [address] Mar, [facility] [address] [id number] [address] [place] [address], [place] [address] Mar, [facility] [address] [id number] [address] [place] [address], [place] [address] Mar, [facility] [address] [id number] [address] [place] [address], [place] [address] Mar, [facility] [address] [id number] [address] [place] [address], [place] [address] Feb, [facility] [address] [id number] [address] [place] [address], [place] [address] Feb, [facility] [address] [id number] [address] [place] [address], [place] [address] Feb, [facility] [address] [id number] [address] [place] [address], [place] [address] Feb, [facility] [address] [id number] [address] [place] [address], [place] [address] Feb, [facility] [address] [id number] [address] [place] [address], [place] [address] Feb, [facility] [address] [id number] [address] [place] [address], [place] [address] Feb, [facility] [address] [id number] [address] [place] [address], [place] [address] Feb, [facility] [address] [id number] [address] [place] [address], [place] [address] Feb, [facility] [address] [id number] [address] [place] [address], [place] [address] January, [facility] [address] [id number] [address] [place] [address], [place] [address] January, [facility] [address] [id number] [address] [place] [address], [place] [address] January, [facility] [address] [id number] [address] [place] [address], [place] [address] January, [facility] [address] [id number] [address] [place] [address], [place] [address] January, [facility] [address] [id number] [address] [place] [address], [place] [address] January, [facility] [address] [id number] [address] [place] [address], [place] [address] January, [facility] [address] [id number] [address] [place] [address], [place] [address] January, [facility] [address] [id number] [address] [place] [address], [place] [address] January, [facility] [address] [id number] [address] [place] [address], [place] [address] January, [facility] [address] [id number] [address] [place] [address], [place] [address] January, [facility] [address] [id number] [address] [place] [address], [place] [address] January, [facility] [address] [id number] [address] [place] [address], [place] [address] January, [facility] [address] [id number] [address] [place] [address], [place] [address] January, [facility] [address] [id number] [address] [place] [address], [place] [address] January, [facility] [address] [id number] [address] [place] [address], [place] [address] January, [facility] [address] [id number] [address] [place] [address], [place] [address] January, [facility] [address] [id number] [address] [place] [address], [place] [address] January, [facility] [address] [id number] [address] [place] [address], [place] [address] January, [facility] [address] [id number] [address] [place] [address], [place] [address] January, [facility] [address] [id number] [address] [place] [address], [place] [address] January, [facility] [address] [id number] [address] [place] [address], [place] [address] January, [facility] [address] [id number] [address] [place] [address], [place] [address] January, [facility] [address] [id number] [address] [place] [address], [place] [address] Dec, [facility] [address] [id number] [address] [place] [address], [place] [address] Dec, [facility] [address] [id number] [address] [place] [address], [place] [address] Dec, [facility] [address] [id number] [address] [place] [address], [place] [address] Dec, [facility] [address] [id number] [address] [place] [address], [place] [address] Dec, [facility] [address] [id number] [address] [place] [address], [place] [address] Nov, [facility] [address] [id number] [address] [place] [address], [place] [address] Oct, [facility] [address] [id number] [address] [place] [address], [place] [address] Oct, [facility] [address] [id number] [address] [place] [address], [place] [address] Oct, [facility] [address] [id number] [address] [place] [address], [place] [address] Oct, [facility] [address] [id number] [address] [place] [address], [place] [address] Oct, [facility] [address] [id number] [address] [place] [address] Sep, [facility] [address] [id number] [address] [place] [address], [place] [address] Sep, [facility] [address] [id number] [address] [place] [address] Sep, [facility] [address] [id number] [address] [place] [address], [place] [address] Aug, [facility] [address] [id number] [address] [place] [address], [place] [address] Aug, [facility] [address] [id number] [address] [place] [address], [place] [address] Aug, [facility] [address] [id number] [address] [place] [address], [place] [address] Aug, [facility] [address] [id number] [address] [place] [address], [place] [address] Jul, [facility] [address] [id number] [address] [place] [address], [place] [address] Jul, [facility] [address] [id number] [address] [place] [address], [place] [address] Jul, [facility] [address] [id number] [address] [place] [address], [place] [address] Jul, [facility] [address] [id number] [address] [place] [address], [place] [address] Jul, [facility] [address] [id number] [address] [place] [address] Jul, [facility] [address] [id number] [address] [place] [address], [place] [address] Jun, [facility] [address] [id number] [address] [place] [address], [place] [address] Jun, [facility] [address] [id number] [address] [place] [address] Jun, [facility] [address] [id number] [address] [place] [address], [place] [address] Jun, [facility] [address] [id number] [address] [place] [address], [place] [address] Jun, [facility] [address] [id number] [address] [place] [address], [place] [address] Jun, [facility] [address] [id number] [address] [place] [address], [place] [address] Jun, [facility] [address] [id number] [address] [place] [address], [place] [address] Jun, [facility] [address] [id number] [address] [place] [address], [place] [address] Jun, [facility] [address] [id number] [address] [place] [address], [place] [address] Jun, [facility] [address] [id number] [address] [place] [address], [place] [address] May, [facility] [address] [id number] [address] [place] [address], [place] [address] 08 May, 2012 [facility] [address] [id number] [address] [place] [address], [place] [address] May, [facility] [address] [address] [id number] [address] [place] [address], [place] [address] 30 Apr, 2012 [facility] [address] [id number] [address] [place] [address], [place] [address] Apr, [facility] [address] [id number] [address] [place] [address], [place] [address] 14 Apr, 2012 [facility] [address] [id number] [address] [place] [address], [place] [address] Apr, [facility] [address] [id number] [address] [place] [address], [place] [address] Apr, [facility] [address] [id number] [address] [place] [address], [place] [address] Apr, [facility] [address] [id number] [address] [place] [address], [place] [address] Apr, [facility] [address] [id number] [address] [place] [address], [place] [address] Apr, [facility] [address] [id number] [address] [place] [address], [place] [address] Apr, [facility] [address] [id number] [address] [place] [address], [place] [address] Mar, [facility] [address] [id number] [address] [place] [address], [place] [address] Mar, [facility] [address] [id number] [address] [place] [address], [place] [address] Mar, [facility] [address] [id number] [address] [place] [address], [place] [address] Mar, [facility] [address] [id number] [address] [place] [address], [place] [address] Feb, [facility] [address] [id number] [address] [place] [address], [place] [address] Feb, [facility] [address] [id number] [address] [place] [address], [place] [address] Feb, [facility] [address] [id number] [address] [place] [address], [place] [address] January, [facility] [address] [id number] [address] [place] [address], [place] [address] January, [facility] [address] [id number] [address] [place] [address], [place] [address] January, [facility] [address] [id number] [address] [place] [address], [place] [address] January, [facility] [address] [id number] [address] [place] [address], [place] [address] January, [facility] [address] [id number] [address] [place] [address], [place] [address] 30 Dec, 2011 [facility] [address] [id number] [address] [place] [address], [place] [address] Dec, [facility] [address] [id number] [address] [place] [address], [place] [address] 16 Dec, 2011 [facility] [address] [id number] [address] [place] [address], [place] [address] Oct, [facility] [address] [id number] [address] [place] [address], [place] [address] Oct, [facility] [address] [id number] [address] [place] [address], [place] [address] Oct, [facility] [address] [id number] [address] [place] [address], [place] [address] Sep, [facility] [address] [id number] [address] [place] [address], [place] [address] Sep, [facility] [address] [id number] [address] [place] [address], [place] [address] Aug, [facility] [address] [id number] [address] [place] [address], [place] [address] Jul, [facility] [address] [id number] [address] [place] [address], [place] [address] Jul, [facility] [address] [id number] [address] [place] [address], [place] [address] Mar, [facility] [address] [id number] [address] [place] [address], [place] [address] Aug, [facility] [address] [id number] [address] [place] [address], [place] [address] Jul, [facility] [address] [id number] [address] [place] [address], [place] [address] Jul, [facility] [address] [id number] [address] [place] [address], [place] [address] Jul, [facility] [address] [id number] [address] [place] [id number] 04 Jul, 2010 [facility] [address] [id number] [address] [place] [address], [place] [address] 14 Jun, 2010 [facility] [address] [id number] [address] [place] [address] 12 Jun, 2010 [facility] [address] [id number] [address] [place] [id number] 17 Apr, 2010 [facility] [address] [id number] [address] [place] [address], [place] [address] Aug, [facility] [address] [id number] [address] [place] [id number] 17 Jul, 2009 [facility] [address] [id number] [address] [place] [phone] 17 Jul, 2009 [facility] [address] [id number] [address] [place] [address] Jul, [facility] [address] [id number] [address] [place] [id number] 23 Jun, 2009 [facility] [address] [id number] [address] [place] [id number] 10 May, 2009 [facility] [address] [id number] [address] [place] [id number] 14 Dec, 2008 [facility] [address] [id number] [address] [place] [address] Nov, [facility] [address] [id number] [address] [place] [id number] 10 Oct, 2008 [facility] [address] [id number] [address] [place] [id number] 05 Aug, 2008 [facility] [address] [id number] [address] [place] [phone] 03 Aug, 2008 [facility] [address] [id number] [address] [place] [phone] Jun, IMMUNIZATIONS No Known Immunizations SOCIAL HISTORY Never Assessed REASON FOR VISIT PLAN OF CARE VITAL SIGNS Height 66 in 2013-09-07 Weight 320 lbs 2013-09-07 Temperature 98.2 degrees Fahrenheit 2013-09-07 Heart Rate 96 bpm 2013-09-07 Respiratory Rate 34 2013-09-07 Blood pressure systolic 130 mmHg 2013-09-07 Blood pressure diastolic 86 mmHg 2013-09-07 MEDICATIONS Unknown Medications RESULTS No Results PROCEDURES Procedure Date Ordered Result Body Site MEASURE BLOOD OXYGEN LEVEL Sep 07, 2013 BASIC METABOLIC PANEL Sep 07, 2013 CHEST X-RAY Sep 07, 2013 VENIPUNCT, ROUTINE* Sep 07, 2013 INSTRUCTIONS MEDICATIONS ADMINISTERED No Known Medications [...] x 3 day s 04/2012 Hospitalization History [facility] [place]- Right wrist injury 03/29/2018
--- OUTSIDE RECORDS SUMMARY | 2020-04-09 00:14 | XMS REPORT ---
Author Author Kateryna UMANZOR Organization [facility] Address [address] [place] [address] Care Team Providers Care Monitor Technician Name Role Phone ZENA UMANZOR Unavailable PROBLEMS Type Condition ICD9-CM Code [id number] Code Onset Dates Condition S tatus SNOMED Code Problem Irregular menses N92.6 Active 801 08180 Problem Migraine with aura and without status migrainosu s, not intractable G43.109 Active 3810001 Problem Uncontrolled type 2 diabetes mellitus with hyperglycemia E11.65 Active 973205977 Problem Morbid obesity due to excess calories E66.01 Active 969670132 Problem RLS (restless legs syndrome) G25.81 A ctive 14096964 Problem Morbid obesity E66.01 Active 44559 6002 ALLERGIES No Information ENCOUNTERS Encounter Location Date Diagnosis [facility] [address] [id number] [address] [place] [id number] Dec, [facility] [address] [id number] [address] [place] [id number] Dec, [facility] [address] [id number] [address] [place] [id number] Dec, Uncontrolled type 2 diabetes mellitus with hyperglycemia E11.65 [facility] [address] [id number] [address] [place] [id number] 07 Dec, 2019 [facility] [address] [id number] [address] [place] [id number] Dec, [facility] [address] [id number] [address] [place] [id number] Dec, [facility] [address] [id number] [address] [place] [address] Nov, [facility] [address] [id number] [address] [place] [id number] 28 Nov, 2019 [facility] [address] [id number] [address] [place] [address] Nov, [facility] [address] [id number] [address] [place] [id number] 02 Nov, 2019 RLS (restless legs syndrome) G25.81 [facility] [address] [id number] [address] [place] [id number] 15 Oct, 2019 [facility] [address] [id number] [address] [place] [id number] 09 Oct, 2019 Influenza J11.1 [facility] [address] [id number] [address] [place] [id number] 16 Sep, 2019 [facility] [address] [id number] [address] [place] [id number] 14 Sep, 2019 [facility] [address] [id number] [address] [place] [id number] 14 Sep, 2019 [facility] [address] [id number] [address] [place] [id number] 13 Sep, 2019 [facility] [address] [id number] [address] [place] [id number] 10 Sep, 2019 Pneumonia of left lower lobe due to infectious organism J18.9 and Migraine with aura and without status migrainosus, not intractable G43.109 [facility] [address] [id number] [address] [place] [id number] 10 Sep, 2019 [facility] [address] [id number] [address] [place] [id number] Sep, [facility] [address] [id number] [address] [place] [id number] 08 Sep, 2019 [facility] [address] [id number] [address] [place] [id number] 08 Sep, 2019 [facility] [address] [id number] [address] [place] [id number] Sep, Pneumonia of left lower lobe due to infectious organism J18.9 and Migraine with aura and without status migrainosus, not intractable G43.109 [facility] [address] [id number] [address] [place] [address] Aug, Irregular menses N92.6 ; Wel l woman exam Z01.419 ; Pelvic cramping R10.2 and Left breast lump N63.20 [facility] [address] [id number] [address] [place] [id number] Aug, [facility] [address] [id number] [address] [place] [address] Aug, Well woman exam Z01.419 ; Le ft breast lump N63.20 ; Irregular menses N92.6 ; Encounter for immunization Z23 ; Pelvic cramping R10.2 and Screening for cervical cancer Z12.4 [facility] [address] [id number] [address] [place] [id number] Aug, [facility] [address] [id number] [address] [place] [id number] Aug, [facility] [address] [id number] [address] [place] [phone] Aug, [facility] [address] [id number] [address] [place] [id number] Jul, [facility] [address] [id number] [address] [place] [address] Jun, [facility] [address] [id number] [address] [place] [address] Jun, [facility] [address] [id number] [address] [place] [id number] Jun, [facility] [address] [id number] [address] [place] [id number] Jun, BMI 50.0-59.9, adult Z68.43 [facility] [address] [address] Jun, [facility] [address] [address] May, Acute non-recurrent sinusiti s, unspecified location J01.90 ; Diarrhea, unspecified R19.7 ; Vomiting, unspecified R11.10 and Morbid obesity E66.01 [place] [address] [address] Apr, [place] [address] [address] Apr, Anemia due to other cause, n ot classified D64.89 and D-dimer, elevated R79.89 [place] [address] [address] Apr, [place] [address] [address] Apr, [place] [address] [address] Mar, Anemia due to other cause, n ot classified D64.89 and D-dimer, elevated R79.89 [place] [address] [address] Mar, Leg edema, right R60.0 ; Hig h risk medication use Z79.899 and Morbid obesity E66.01 [place] [address] [address] Mar, BMI 50.0-59.9, adult Z68.43 [place] [address] [address] Mar, [place] [address] [address] January, Uncontrolled type 2 diabetes mellitus with hyperglycemia E11.65 ; RLS (restless legs syndrome) G25.81 and Morbid obesity E66.01 [facility] [address] [id number] [address] [place] [id number] 15 Oct, 2018 Lipoma of right lower extrem ity D17.23 [facility] [address] [id number] [address] [place] [address] Oct, Lipoma of right lower extrem ity D17.23 [facility] [address] [id number] [address] [place] [id number] Sep, [facility] [address] [id number] [address] [place] [id number] Sep, [facility] [address] [id number] [address] [place] [id number] Sep, [facility] [address] [id number] [address] [place] [id number] Sep, [facility] [address] [id number] [address] [place] [id number] Sep, [facility] [address] [id number] [address] [place] [address] Aug, Uncontrolled type 2 diabetes mellitus with hyperglycemia E11.65 ; Morbid obesity due to excess calories E66.01 ; Lipoma of torso D17.1 and BMI 50.0-59.9, adult Z68.43 [facility] [address] [id number] [address] [place] [id number] Jun, Encounter for immunization Z 23 [facility] [address] [id number] [address] [place] [id number] Jul, [facility] [address] [id number] [address] [place] [address] Jun, Encounter for immunization Z 23 [facility] [address] [id number] [address] [place] [id number] May, [facility] [address] [id number] [address] [place] [id number] 16 Oct, 2015 Encounter for immunization Z 23 [facility] [address] [id number] [address] [place] [address], [place] [address] 29 May, 2015 [facility] [address] [id number] [address] [place] [address], [place] [address] May, [facility] [address] [id number] [address] [place] [address], [place] [address] Apr, [facility] [address] [id number] [address] [place] [address], [place] [address] Feb, [facility] [address] [id number] [address] [place] [address], [place] [address] Feb, [facility] [address] [id number] [address] [place] [address], [place] [address] Feb, [facility] [address] [id number] [address] [place] [address], [place] [address] January, [facility] [address] [id number] [address] [place] [id number] January, [facility] [address] [id number] [address] [place] [address], [place] [address] Dec, [facility] [address] [id number] [address] [place] [id number] Dec, [facility] [address] [id number] [address] [place] [id number] Nov, [facility] [address] [id number] [address] [place] [id number] Nov, [facility] [address] [id number] [address] [place] [id number] Nov, [facility] [address] [id number] [address] [place] [id number] Nov, [facility] [address] [id number] [address] [place] [id number] Nov, [facility] [address] [id number] [address] [place] [phone] Nov, [facility] [address] [id number] [address] [place] [address], [place] [address] Nov, [facility] [address] [id number] [address] [place] [address], [place] [address] Oct, [facility] [address] [id number] [address] [place] [address], [place] [address] Oct, [facility] [address] [id number] [address] [place] [address], [place] [address] Oct, [facility] [address] [id number] [address] [place] [address], [place] [address] Oct, [facility] [address] [id number] [address] [place] [address], [place] [address] Oct, [facility] [address] [id number] [address] [place] [address], [place] [address] Sep, [facility] [address] [id number] [address] [place] [address], [place] [address] Sep, [facility] [address] [id number] [address] [place] [address], [place] [address] Sep, [facility] [address] [id number] [address] [place] [address], [place] [address] Sep, [facility] [address] [id number] [address] [place] [address], [place] [address] Sep, [facility] [address] [id number] [address] [place] [address], [place] [address] Sep, [facility] [address] [id number] [address] [place] [address], [place] [address] Sep, [facility] [address] [id number] [address] [place] [address], [place] [address] Sep, [facility] [address] [id number] [address] [place] [address], [place] [address] Sep, [facility] [address] [id number] [address] [place] [address], [place] [address] Sep, [facility] [address] [id number] [address] [place] [address], [place] [address] Aug, [facility] [address] [id number] [address] [place] [address], [place] [address] Aug, [facility] [address] [id number] [address] [place] [address], [place] [address] Aug, [facility] [address] [id number] [address] [place] [address], [place] [address] Aug, [facility] [address] [id number] [address] [place] [address], [place] [address] Aug, [facility] [address] [id number] [address] [place] [address], [place] [address] Aug, [facility] [address] [id number] [address] [place] [address], [place] [address] Aug, [facility] [address] [id number] [address] [place] [address], [place] [address] Aug, [facility] [address] [id number] [address] [place] [address], [place] [address] Aug, [facility] [address] [id number] [address] [place] [address], [place] [address] Aug, [facility] [address] [id number] [address] [place] [address], [place] [address] Aug, [facility] [address] [id number] [address] [place] [address], [place] [address] Aug, [facility] [address] [id number] [address] [place] [address], [place] [address] Aug, [facility] [address] [id number] [address] [place] [address], [place] [address] Aug, [facility] [address] [id number] [address] [place] [address], [place] [address] 17 Aug, 2014 [facility] [address] [id number] [address] [place] [address], [place] [address] 17 Aug, 2014 [facility] [address] [id number] [address] [place] [address], [place] [address] 16 Aug, 2014 [facility] [address] [id number] [address] [place] [address], [place] [address] 16 Aug, 2014 [facility] [address] [id number] [address] [place] [address], [place] [address] Aug, [facility] [address] [id number] [address] [place] [address], [place] [address] Aug, [facility] [address] [id number] [address] [place] [address], [place] [address] Aug, [facility] [address] [id number] [address] [place] [address], [place] [address] Aug, [facility] [address] [id number] [address] [place] [address], [place] [address] Aug, [facility] [address] [id number] [address] [place] [address], [place] [address] 05 Aug, 2014 [facility] [address] [id number] [address] [place] [address], [place] [address] Jul, [facility] [address] [id number] [address] [place] [address], [place] [address] Jul, [facility] [address] [id number] [address] [place] [address], [place] [address] Jun, [facility] [address] [id number] [address] [place] [address], [place] [address] Jun, [facility] [address] [id number] [address] [place] [address], [place] [address] Jun, [facility] [address] [id number] [address] [place] [address], [place] [address] Jun, [facility] [address] [id number] [address] [place] [address], [place] [address] 15 Jun, 2014 [facility] [address] [id number] [address] [place] [address], [place] [address] 15 Jun, 2014 [facility] [address] [id number] [address] [place] [address], [place] [address] 14 Jun, 2014 [facility] [address] [id number] [address] [place] [address], [place] [address] 14 Jun, 2014 [facility] [address] [id number] [address] [place] [address], [place] [address] 13 Jun, 2014 [facility] [address] [id number] [address] [place] [address], [place] [address] 13 Jun, 2014 [facility] [address] [id number] [address] [place] [address], [place] [address] 13 Jun, 2014 [facility] [address] [id number] [address] [place] [address], [place] [address] Jun, [facility] [address] [id number] [address] [place] [address], [place] [address] 06 Jun, 2014 [facility] [address] [id number] [address] [place] [address], [place] [address] 06 Jun, 2014 [facility] [address] [id number] [address] [place] [address], [place] [address] 26 May, 2013 [facility] [address] [id number] [address] [place] [address], [place] [address] 26 May, 2013 [facility] [address] [id number] [address] [place] [address], [place] [address] 22 May, 2013 [facility] [address] [id number] [address] [place] [address], [place] [address] 22 May, 2013 [facility] [address] [id number] [address] [place] [address], [place] [address] 04 May, 2013 [facility] [address] [id number] [address] [place] [address], [place] [address] May, [facility] [address] [id number] [facility] [place] [address] May, [facility] [address] [id number] [address] [place] [address], [place] [address] May, [facility] [address] [id number] [address] [place] [address], [place] [address] Apr, [facility] [address] [id number] [address] [place] [address], [place] [address] Apr, [facility] [address] [id number] [address] [place] [address], [place] [address] Apr, [facility] [address] [id number] [address] [place] [address], [place] [address] Apr, [facility] [address] [id number] [address] [place] [address], [place] [address] Apr, [facility] [address] [id number] [address] [place] [address], [place] [address] Apr, [facility] [address] [id number] [address] [place] [address], [place] [address] Apr, [facility] [address] [id number] [address] [place] [address], [place] [address] Apr, [facility] [address] [id number] [address] [place] [address], [place] [address] Apr, [facility] [address] [id number] [address] [place] [address], [place] [address] Mar, [facility] [address] [id number] [address] [place] [address], [place] [address] Mar, [facility] [address] [id number] [address] [place] [address], [place] [address] Mar, [facility] [address] [id number] [address] [place] [address], [place] [address] Feb, [facility] [address] [id number] [address] [place] [address], [place] [address] 30 Feb, 2014 [facility] [address] [id number] [facility] [place] [address] Feb, [facility] [address] [id number] [facility] [place] [address] 27 Feb, 2014 [facility] [address] [id number] [address] [place] [address], [place] [address] 17 Feb, 2014 [facility] [address] [id number] [address] [place] [address], [place] [address] 17 Feb, 2014 [facility] [address] [id number] [address] [place] [address], [place] [address] Feb, [facility] [address] [id number] [address] [place] [address], [place] [address] Feb, [facility] [address] [id number] [address] [place] [address], [place] [address] Feb, [facility] [address] [id number] [address] [place] [address], [place] [address] Feb, [facility] [address] [id number] [address] [place] [address], [place] [address] Feb, [facility] [address] [id number] [address] [place] [address], [place] [address] Feb, [facility] [address] [id number] [address] [place] [address], [place] [address] Feb, [facility] [address] [id number] [address] [place] [address], [place] [address] Feb, [facility] [address] [id number] [address] [place] [address], [place] [address] Feb, [facility] [address] [id number] [address] [place] [address], [place] [address] Feb, [facility] [address] [id number] [address] [place] [address], [place] [address] January, [facility] [address] [id number] [facility] [place] [address] January, [facility] [address] [id number] [facility] [place] [address] January, [facility] [address] [id number] [facility] [place] [address] January, [facility] [address] [id number] [facility] [place] [address] January, [facility] [address] [id number] [facility] [place] [address] January, [facility] [address] [id number] [address] [place] [address], [place] [address] January, [facility] [address] [id number] [address] [place] [address], [place] [address] January, [facility] [address] [id number] [address] [place] [address], [place] [address] January, [facility] [address] [id number] [address] [place] [address], [place] [address] January, [facility] [address] [id number] [address] [place] [address], [place] [address] January, [facility] [address] [id number] [address] [place] [address], [place] [address] January, [facility] [address] [id number] [address] [place] [address], [place] [address] January, [facility] [address] [id number] [address] [place] [address], [place] [address] January, [facility] [address] [id number] [address] [place] [address], [place] [address] January, [facility] [address] [id number] [address] [place] [address], [place] [address] January, [facility] [address] [id number] [address] [place] [address], [place] [address] January, [facility] [address] [id number] [address] [place] [address] January, [facility] [address] [id number] [address] [place] [address], [place] [address] January, [facility] [address] [id number] [address] [place] [address], [place] [address] January, [facility] [address] [id number] [address] [place] [address], [place] [address] January, [facility] [address] [id number] [address] [place] [address], [place] [address] January, [facility] [address] [address] [id number] [address] [place] [address], [place] [address] January, [facility] [address] [id number] [address] [place] [address], [place] [address] January, [facility] [address] [id number] [address] [place] [address], [place] [address] January, [facility] [address] [id number] [address] [place] [address], [place] [address] January, [facility] [address] [id number] [address] [place] [address], [place] [address] Dec, [facility] [address] [id number] [address] [place] [address], [place] [address] Dec, [facility] [address] [id number] [address] [place] [address], [place] [address] Dec, [facility] [address] [id number] [address] [place] [address], [place] [address] Dec, [facility] [address] [id number] [address] [place] [address], [place] [address] Dec, [facility] [address] [id number] [address] [place] [address], [place] [address] Dec, [facility] [address] [id number] [facility] [place] [address] Dec, [facility] [address] [id number] [address] [place] [address], [place] [address] Dec, [facility] [address] [id number] [address] [place] [address], [place] [address] Dec, [facility] [address] [id number] [address] [place] [address], [place] [address] Dec, [facility] [address] [id number] [address] [place] [address], [place] [address] Dec, [facility] [address] [id number] [address] [place] [address], [place] [address] Dec, [facility] [address] [id number] [address] [place] [address], [place] [address] Dec, [facility] [address] [id number] [address] [place] [address], [place] [address] Dec, [facility] [address] [id number] [address] [place] [address], [place] [address] Dec, [facility] [address] [id number] [address] [place] [address], [place] [address] Dec, [facility] [address] [id number] [address] [place] [address], [place] [address] Dec, [facility] [address] [id number] [address] [place] [address], [place] [address] Dec, [facility] [address] [id number] [address] [place] [address], [place] [address] Dec, [facility] [address] [id number] [address] [place] [address], [place] [address] Dec, [facility] [address] [id number] [address] [place] [address], [place] [address] Dec, [facility] [address] [id number] [address] [place] [address], [place] [address] Dec, [facility] [address] [id number] [facility] [place] [address] 31 Nov, 2013 [facility] [address] [id number] [facility] [place] [address] 31 Nov, 2013 [facility] [address] [id number] [facility] [place] [address] Nov, [facility] [address] [id number] [address] [place] [address], [place] [address] Nov, [facility] [address] [id number] [facility] [place] [address] Nov, [facility] [address] [id number] [address] [place] [address], [place] [address] 24 Nov, 2013 [facility] [address] [id number] [address] [place] [address], [place] [address] Nov, [facility] [address] [id number] [address] [place] [address], [place] [address] Nov, [facility] [address] [id number] [address] [place] [address], [place] [address] 18 Nov, 2013 [facility] [address] [id number] [address] [place] [address], [place] [address] 18 Nov, 2013 [facility] [address] [id number] [address] [place] [address], [place] [address] 18 Nov, 2013 [facility] [address] [id number] [address] [place] [address], [place] [address] 18 Nov, 2013 [facility] [address] [id number] [address] [place] [address], [place] [address] 14 Nov, 2013 [facility] [address] [id number] [address] [place] [address], [place] [address] 14 Nov, 2013 [facility] [address] [id number] [address] [place] [address], [place] [address] 06 Nov, 2013 [facility] [address] [id number] [address] [place] [address], [place] [address] Nov, [facility] [address] [id number] [address] [place] [address], [place] [address] Oct, [facility] [address] [id number] [address] [place] [address], [place] [address] Oct, [facility] [address] [id number] [address] [place] [address], [place] [address] Oct, [facility] [address] [id number] [address] [place] [address], [place] [address] Oct, [facility] [address] [id number] [address] [place] [address], [place] [address] Oct, [facility] [address] [id number] [address] [place] [address], [place] [address] Oct, [facility] [address] [id number] [address] [place] [address], [place] [address] Oct, [facility] [address] [id number] [address] [place] [address], [place] [address] Oct, [facility] [address] [id number] [address] [place] [address], [place] [address] Oct, [facility] [address] [id number] [address] [place] [address], [place] [address] 17 Oct, 2013 [facility] [address] [id number] [address] [place] [address], [place] [address] 14 Oct, 2013 [facility] [address] [id number] [address] [place] [address], [place] [address] 14 Oct, 2013 [facility] [address] [id number] [address] [place] [address], [place] [address] 04 Oct, 2013 [facility] [address] [id number] [address] [place] [address], [place] [address] 04 Oct, 2013 [facility] [address] [id number] [address] [place] [address], [place] [address] Oct, [facility] [address] [id number] [facility] [place] [address] Sep, [facility] [address] [id number] [address] [place] [address], [place] [address] Sep, [facility] [address] [id number] [address] [place] [address], [place] [address] Sep, [facility] [address] [id number] [address] [place] [address], [place] [address] Sep, [facility] [address] [id number] [address] [place] [address], [place] [address] Sep, [facility] [address] [id number] [address] [place] [address], [place] [address] Sep, [facility] [address] [id number] [address] [place] [address], [place] [address] Sep, [facility] [address] [id number] [address] [place] [address], [place] [address] Sep, [facility] [address] [id number] [address] [place] [address], [place] [address] Sep, [facility] [address] [id number] [address] [place] [address], [place] [address] Sep, [facility] [address] [id number] [address] [place] [address], [place] [address] Sep, [facility] [address] [id number] [address] [place] [address], [place] [address] Sep, [facility] [address] [id number] [address] [place] [address], [place] [address] Sep, [facility] [address] [id number] [address] [place] [address], [place] [address] Aug, [facility] [address] [id number] [address] [place] [address], [place] [address] Aug, [facility] [address] [id number] [address] [place] [address], [place] [address] 24 Aug, 2013 [facility] [address] [id number] [address] [place] [address], [place] [address] 24 Aug, 2013 [facility] [address] [id number] [address] [place] [address], [place] [address] 17 Aug, [address] [facility] [address] [id number] [address] [place] [address], [place] [address] 17 Aug, 2013 [facility] [address] [id number] [address] [place] [address], [place] [address] 16 Aug, [address] [facility] [address] [id number] [address] [place] [address], [place] [address] 16 Aug, 2013 [facility] [address] [id number] [address] [place] [address], [place] [address] 12 Aug, 2013 [facility] [address] [id number] [address] [place] [address], [place] [address] 12 Aug, 2013 [facility] [address] [id number] [address] [place] [address], [place] [address] 10 Aug, 2013 [facility] [address] [id number] [address] [place] [address], [place] [address] 10 Aug, 2013 [facility] [address] [id number] [address] [place] [address], [place] [address] 02 Aug, 2013 [facility] [address] [id number] [address] [place] [address], [place] [address] Aug, [facility] [address] [id number] [address] [place] [address], [place] [address] Jul, [facility] [address] [id number] [address] [place] [address], [place] [address] Jul, [facility] [address] [id number] [address] [place] [address], [place] [address] 18 Jul, 2013 [facility] [address] [id number] [address] [place] [address], [place] [address] 18 Jul, 2013 [facility] [address] [id number] [address] [place] [address], [place] [address] 14 Jul, 2013 [facility] [address] [id number] [address] [place] [address], [place] [address] 14 Jul, 2013 [facility] [address] [id number] [address] [place] [address], [place] [address] 14 Jul, 2013 [facility] [address] [id number] [address] [place] [address], [place] [address] 14 Jul, 2013 [facility] [address] [id number] [address] [place] [address], [place] [address] 07 Jul, 2013 [facility] [address] [id number] [address] [place] [address], [place] [address] 07 Jul, 2013 [facility] [address] [id number] [address] [place] [address], [place] [address] 06 Jul, 2013 [facility] [address] [id number] [address] [place] [address], [place] [address] 06 Jul, 2013 [facility] [address] [id number] [address] [place] [address], [place] [address] 05 Jul, 2013 [facility] [address] [id number] [address] [place] [address], [place] [address] 05 Jul, 2013 [facility] [address] [id number] [address] [place] [address], [place] [address] 23 Jun, 2013 [facility] [address] [id number] [address] [place] [address], [place] [address] 23 Jun, 2013 [facility] [address] [id number] [address] [place] [address], [place] [address] 15 Jun, 2013 [facility] [address] [id number] [address] [place] [address], [place] [address] 15 Jun, 2013 [facility] [address] [id number] [address] [place] [address], [place] [address] 14 Jun, 2013 [facility] [address] [id number] [address] [place] [address], [place] [address] 24 Sep, 2012 [facility] [address] [id number] [address] [place] [address], [place] [address] 20 Sep, 2012 [facility] [address] [id number] [address] [place] [address], [place] [address] 20 Sep, 2012 [facility] [address] [id number] [address] [place] [address], [place] [address] 20 Sep, 2012 [facility] [address] [id number] [address] [place] [address], [place] [address] 19 Sep, 2012 [facility] [address] [id number] [address] [place] [address], [place] [address] 13 May, 2012 [facility] [address] [id number] [address] [place] [address], [place] [address] 12 May, 2012 [facility] [address] [id number] [address] [place] [address], [place] [address] 12 May, 2012 [facility] [address] [id number] [address] [place] [address], [place] [address] 11 May, 2012 [facility] [address] [id number] [address] [place] [address], [place] [address] 11 May, 2012 [facility] [address] [id number] [address] [place] [address], [place] [address] 11 May, 2012 [facility] [address] [id number] [address] [place] [address], [place] [address] 09 Sep, 2012 [facility] [address] [id number] [address] [place] [address], [place] [address] 05 Sep, 2012 [facility] [address] [id number] [address] [place] [address], [place] [address] 04 Sep, 2012 [facility] [address] [id number] [address] [place] [address], [place] [address] 03 May, 2012 [facility] [address] [id number] [address] [place] [address], [place] [address] 27 Apr, 2012 [facility] [address] [id number] [address] [place] [address], [place] [address] Apr, [facility] [address] [id number] [address] [place] [address], [place] [address] Apr, [facility] [address] [id number] [address] [place] [address], [place] [address] Apr, [facility] [address] [id number] [address] [place] [address], [place] [address] Apr, [facility] [address] [id number] [address] [place] [address], [place] [address] Apr, [facility] [address] [id number] [address] [place] [address], [place] [address] Apr, [facility] [address] [id number] [address] [place] [address], [place] [address] Apr, [facility] [address] [id number] [address] [place] [address], [place] [address] Apr, [facility] [address] [id number] [address] [place] [address], [place] [address] Mar, [facility] [address] [id number] [address] [place] [address], [place] [address] Mar, [facility] [address] [id number] [address] [place] [address], [place] [address] Mar, [facility] [address] [id number] [address] [place] [address], [place] [address] Mar, [facility] [address] [id number] [address] [place] [address], [place] [address] Mar, [facility] [address] [id number] [address] [place] [address], [place] [address] Mar, [facility] [address] [id number] [address] [place] [address], [place] [address] Mar, [facility] [address] [id number] [address] [place] [address], [place] [address] Mar, [facility] [address] [id number] [address] [place] [address], [place] [address] Mar, [facility] [address] [id number] [address] [place] [address], [place] [address] Mar, [facility] [address] [id number] [address] [place] [address], [place] [address] Mar, [facility] [address] [id number] [address] [place] [address], [place] [address] Feb, [facility] [address] [id number] [address] [place] [address], [place] [address] Feb, [facility] [address] [id number] [address] [place] [address], [place] [address] Feb, [facility] [address] [id number] [address] [place] [address], [place] [address] Feb, [facility] [address] [id number] [address] [place] [address], [place] [address] Feb, [facility] [address] [id number] [address] [place] [address], [place] [address] Feb, [facility] [address] [id number] [address] [place] [address], [place] [address] Feb, [facility] [address] [id number] [address] [place] [address], [place] [address] Feb, [facility] [address] [id number] [address] [place] [address], [place] [address] Feb, [facility] [address] [id number] [address] [place] [address], [place] [address] January, [facility] [address] [id number] [address] [place] [address], [place] [address] January, [facility] [address] [id number] [address] [place] [address], [place] [address] January, [facility] [address] [id number] [address] [place] [address], [place] [address] January, [facility] [address] [id number] [address] [place] [address], [place] [address] January, [facility] [address] [id number] [address] [place] [address], [place] [address] January, [facility] [address] [id number] [address] [place] [address], [place] [address] January, [facility] [address] [id number] [address] [place] [address], [place] [address] January, [facility] [address] [id number] [address] [place] [address], [place] [address] January, [facility] [address] [id number] [address] [place] [address], [place] [address] January, [facility] [address] [id number] [address] [place] [address], [place] [address] January, [facility] [address] [id number] [address] [place] [address], [place] [address] January, [facility] [address] [id number] [address] [place] [address], [place] [address] January, [facility] [address] [id number] [address] [place] [address], [place] [address] January, [facility] [address] [id number] [address] [place] [address], [place] [address] January, [facility] [address] [id number] [address] [place] [address], [place] [address] January, [facility] [address] [id number] [address] [place] [address], [place] [address] January, [facility] [address] [id number] [address] [place] [address], [place] [address] January, [facility] [address] [id number] [address] [place] [address], [place] [address] January, [facility] [address] [id number] [address] [place] [address], [place] [address] January, [facility] [address] [id number] [address] [place] [address], [place] [address] January, [facility] [address] [id number] [address] [place] [address], [place] [address] January, [facility] [address] [id number] [address] [place] [address], [place] [address] January, [facility] [address] [id number] [address] [place] [address], [place] [address] Dec, [facility] [address] [id number] [address] [place] [address], [place] [address] Dec, [facility] [address] [id number] [address] [place] [address], [place] [address] Dec, [facility] [address] [id number] [address] [place] [address], [place] [address] Dec, [facility] [address] [id number] [address] [place] [address], [place] [address] Dec, [facility] [address] [id number] [address] [place] [address], [place] [address] Nov, [facility] [address] [id number] [address] [place] [address], [place] [address] Oct, [facility] [address] [id number] [address] [place] [address], [place] [address] Oct, [facility] [address] [id number] [address] [place] [address], [place] [address] Oct, [facility] [address] [id number] [address] [place] [address], [place] [address] Oct, [facility] [address] [id number] [address] [place] [address], [place] [address] Oct, [facility] [address] [id number] [address] [place] [address], [place] [address] Sep, [facility] [address] [id number] [address] [place] [address], [place] [address] Sep, [facility] [address] [id number] [address] [place] [address], [place] [address] Sep, [facility] [address] [id number] [address] [place] [address], [place] [address] Aug, [facility] [address] [id number] [address] [place] [address], [place] [address] Aug, [facility] [address] [id number] [address] [place] [address], [place] [address] Aug, [facility] [address] [id number] [address] [place] [address], [place] [address] Aug, [facility] [address] [id number] [address] [place] [address], [place] [address] Jul, [facility] [address] [id number] [address] [place] [address], [place] [address] Jul, [facility] [address] [id number] [address] [place] [address], [place] [address] Jul, [facility] [address] [id number] [address] [place] [address], [place] [address] Jul, [facility] [address] [id number] [address] [place] [address], [place] [address] Jul, [facility] [address] [id number] [address] [place] [address] Jul, [facility] [address] [id number] [address] [place] [address], [place] [address] Jun, [facility] [address] [id number] [address] [place] [address], [place] [address] Jun, [facility] [address] [id number] [address] [place] [address], [place] [address] Jun, [facility] [address] [id number] [address] [place] [address], [place] [address] Jun, [facility] [address] [id number] [address] [place] [address], [place] [address] Jun, [facility] [address] [id number] [address] [place] [address], [place] [address] Jun, [facility] [address] [id number] [address] [place] [address], [place] [address] Jun, [facility] [address] [id number] [address] [place] [address], [place] [address] Jun, [facility] [address] [id number] [address] [place] [address], [place] [address] Jun, [facility] [address] [id number] [address] [place] [address], [place] [address] Jun, [facility] [address] [id number] [address] [place] [address], [place] [address] May, [facility] [address] [id number] [address] [place] [address], [place] [address] 08 May, 2012 [facility] [address] [id number] [address] [place] [address], [place] [address] May, [facility] [address] [id number] [address] [place] [address], [place] [address] 30 Apr, 2012 [facility] [address] [id number] [address] [place] [address], [place] [address] Apr, [facility] [address] [id number] [address] [place] [address], [place] [address] 14 Apr, 2012 [facility] [address] [id number] [address] [place] [address], [place] [address] Apr, [facility] [address] [id number] [address] [place] [address], [place] [address] Apr, [facility] [address] [id number] [address] [place] [address], [place] [address] Apr, [facility] [address] [id number] [address] [place] [address], [place] [address] Apr, [facility] [address] [id number] [address] [place] [address], [place] [address] Apr, [facility] [address] [id number] [address] [place] [address], [place] [address] Apr, [facility] [address] [id number] [address] [place] [address], [place] [address] Mar, [facility] [address] [id number] [address] [place] [address], [place] [address] Mar, [facility] [address] [id number] [address] [place] [address], [place] [address] Mar, [facility] [address] [id number] [address] [place] [address], [place] [address] Mar, [facility] [address] [id number] [address] [place] [address], [place] [address] Feb, [facility] [address] [id number] [address] [place] [address], [place] [address] Feb, [facility] [address] [id number] [address] [place] [address], [place] [address] Feb, [facility] [address] [id number] [address] [place] [address], [place] [address] January, [facility] [address] [id number] [address] [place] [address], [place] [address] January, [facility] [address] [id number] [address] [place] [address], [place] [address] January, [facility] [address] [id number] [address] [place] [address], [place] [address] January, [facility] [address] [id number] [address] [place] [address], [place] [address] January, [facility] [address] [id number] [address] [place] [address], [place] [address] 30 Dec, 2011 [facility] [address] [id number] [address] [place] [address], [place] [address] Dec, [facility] [address] [id number] [address] [place] [address], [place] [address] 16 Dec, 2011 [facility] [address] [id number] [address] [place] [address], [place] [address] Oct, [facility] [address] [id number] [address] [place] [address], [place] [address] Oct, [facility] [address] [id number] [address] [place] [address], [place] [address] Oct, [facility] [address] [id number] [address] [place] [address], [place] [address] Sep, [facility] [address] [id number] [address] [place] [address], [place] [address] Sep, [facility] [address] [id number] [address] [place] [address], [place] [address] Aug, [facility] [address] [id number] [address] [place] [address], [place] [address] Jul, [facility] [address] [id number] [address] [place] [address], [place] [address] Jul, [facility] [address] [id number] [address] [place] [address], [place] [address] Mar, [facility] [address] [id number] [address] [place] [address], [place] [address] Aug, [facility] [address] [id number] [address] [place] [address], [place] [address] Jul, [facility] [address] [id number] [address] [place] [address], [place] [address] Jul, [facility] [address] [id number] [address] [place] [address], [place] [address] Jul, [facility] [address] [id number] [address] [place] [address], [place] [address] 04 Jul, 2010 [facility] [address] [id number] [address] [place] [address], [place] [address] 14 Jun, 2010 [facility] [address] [id number] [address] [place] [address], [place] [address] 12 Jun, 2010 [facility] [address] [id number] [address] [place] [address], [place] [address] 17 Apr, 2010 [facility] [address] [id number] [address] [place] [address], [place] [address] Aug, [facility] [address] [id number] [address] [place] [address], [place] [address] Jul, [facility] [address] [id number] [address] [place] [address], [place] [address] Jul, [facility] [address] [id number] [address] [place] [address], [place] [address] Jul, [facility] [address] [id number] [address] [place] [address], [place] [address] 23 Jun, 2009 [facility] [address] [id number] [address] [place] [address], [place] [address] 10 May, 2009 [facility] [address] [id number] [address] [place] [address], [place] [address] 14 Dec, 2008 [facility] [address] [id number] [address] [place] [address], [place] [address] Nov, [facility] [address] [id number] [address] [place] [address], [place] [address] 10 Oct, 2008 [facility] [address] [id number] [address] [place] [address], [place] [address] 05 Aug, 2008 [facility] [address] [id number] [address] [place] [address], [place] [address] 03 Aug, 2008 [facility] [address] [id number] [address] [place] [address] Jun, IMMUNIZATIONS No Known Immunizations SOCIAL HISTORY [...] x 3 day s 04/2012 Hospitalization History [facility] [place]- Right wrist injury 03/29/2018
--- OUTSIDE RECORDS SUMMARY | 2020-04-09 00:14 | XMS REPORT ---
Author Author Kateryna UMANZOR Organization [facility] [place] Address [address] [place] [address] Care Team Providers Care Military Professional Name Role Phone ZENA UMANZOR Unavailable PROBLEMS Type Condition ICD9-CM Code XOW02-BH Code Onset Dates Condition S tatus SNOMED Code Problem Irregular menses N92.6 Active 801 43089 Problem Migraine with aura and without status migrainosu s, not intractable G43.109 Active 7958874 Problem Uncontrolled type 2 diabetes mellitus with hyperglycemia E11.65 Active 603686484 Problem Morbid obesity due to excess calories E66.01 Active 787629646 Problem RLS (restless legs syndrome) G25.81 A ctive [id number] Problem Morbid obesity E66.01 Active 63002 6002 ALLERGIES No Information ENCOUNTERS Encounter Location Date Diagnosis [facility] [place] [address] [facility] [id number] [address] [place] [phone] Dec, [facility] [place] [address] [facility] [id number] [address] [place] [phone] Dec, [facility] [place] [address] [facility] [id number] [address] [place] [phone] Dec, Uncontrolled type 2 diabetes mellitus with hyperglycemia E11.65 [facility] [place] [address] [facility] [id number] [address] [place] [phone] 07 Dec, 2019 [facility] [place] [address] [facility] [id number] [address] [place] [phone] Dec, [facility] [place] [address] [facility] [id number] [address] [place] [phone] Dec, [facility] [place] [address] [facility] [id number] [address] [place] [phone] Nov, [facility] [place] [address] [facility] [id number] [address] [place] [id number] 28 Nov, 2019 [facility] [place] [address] [id number] [address] [place] [phone] Nov, [facility] [place] [address] [facility] [id number] [address] [place] [id number] 02 Nov, 2019 RLS (restless legs syndrome) G25.81 [facility] [place] [address] [facility] [id number] [address] [place] [phone] 15 Oct, 2019 [facility] [address] [id number] [address] [place] [phone] 09 Oct, 2019 Influenza J11.1 [facility] [place] [address] [facility] [id number] [address] [place] [phone] 16 Sep, 2019 [facility] [place] [address] [facility] [id number] [address] [place] [id number] 14 Sep, 2019 [facility] [place] [address] [facility] [id number] [address] [place] [id number] 14 Sep, 2019 [facility] [place] [address] [facility] [id number] [address] [place] [phone] 13 Sep, 2019 [facility] [place] [address] [facility] [id number] [address] [place] [phone] 10 Sep, 2019 Pneumonia of left lower lobe due to infectious organism J18.9 and Migraine with aura and without status migrainosus, not intractable G43.109 [facility] [place] [address] [facility] [id number] [address] [place] [id number] 10 Sep, 2019 [facility] [place] [address] [facility] [id number] [address] [place] [phone] Sep, [facility] [place] [address] [facility] [id number] [address] [place] [phone] 08 Sep, 2019 [facility] [place] [address] [facility] [id number] [address] [place] [phone] 08 Sep, 2019 [facility] [place] [address] [facility] [id number] [address] [place] [phone] Sep, Pneumonia of left lower lobe due to infectious organism J18.9 and Migraine with aura and without status migrainosus, not intractable G43.109 [facility] [place] [address] [id number] [address] [place] [phone] Aug, Irregular menses N92.6 ; Wel l woman exam Z01.419 ; Pelvic cramping R10.2 and Left breast lump N63.20 [facility] [place] [address] [id number] [address] [place] [phone] Aug, [facility] [place] [address] [id number] [address] [place] [address] Aug, Well woman exam Z01.419 ; Le ft breast lump N63.20 ; Irregular menses N92.6 ; Encounter for immunization Z23 ; Pelvic cramping R10.2 and Screening for cervical cancer Z12.4 [facility] [place] [address] [id number] [address] [place] [phone] Aug, [facility] [place] [address] [id number] [address] [place] [phone] Aug, [facility] [place] [address] [id number] [address] [place] [id number] Aug, [facility] [place] [address] [id number] [address] [place] [id number] Jul, [facility] [place] [address] [id number] [address] [place] [phone] Jun, [facility] [place] [address] [id number] [address] [place] [phone] Jun, [facility] [place] [address] [id number] [address] [place] [phone] Jun, [facility] [place] [address] [id number] [address] [place] [phone] Jun, BMI 50.0-59.9, adult Z68.43 [facility] [place] [address] [phone] Jun, [facility] [address] [address] May, Acute non-recurrent sinusiti s, unspecified location J01.90 ; Diarrhea, unspecified R19.7 ; Vomiting, unspecified R11.10 and Morbid obesity E66.01 [place] [address] [address] Apr, [place] [address] [address] Apr, Anemia due to other cause, n ot classified D64.89 and D-dimer, elevated R79.89 [place] [address] [address] Apr, [place] [address] [address] Apr, [place] [address] [address] Mar, Anemia due to other cause, n ot classified D64.89 and D-dimer, elevated R79.89 [place] [address] [address] Mar, Leg edema, right R60.0 ; Hig h risk medication use Z79.899 and Morbid obesity E66.01 [place] [address] [address] Mar, BMI 50.0-59.9, adult Z68.43 [place] [address] [address] Mar, [place] [address] [address] January, Uncontrolled type 2 diabetes mellitus with hyperglycemia E11.65 ; RLS (restless legs syndrome) G25.81 and Morbid obesity E66.01 [facility] [place] [address] [id number] [address] [place] [phone] 15 Oct, 2018 Lipoma of right lower extrem ity D17.23 [facility] [place] [address] [id number] [address] [place] [id number] Oct, Lipoma of right lower extrem ity D17.23 [facility] [place] [address] [id number] [address] [place] [phone] Sep, [facility] [place] [address] [id number] [address] [place] [phone] Sep, [facility] [place] [address] [id number] [address] [place] [phone] Sep, [facility] [place] [address] [id number] [address] [place] [phone] Sep, [facility] [place] [address] [facility] [id number] [address] [place] [phone] Sep, [facility] [place] [address] [id number] [address] [place] [address] Aug, Uncontrolled type 2 diabetes mellitus with hyperglycemia E11.65 ; Morbid obesity due to excess calories E66.01 ; Lipoma of torso D17.1 and BMI 50.0-59.9, adult Z68.43 [facility] [place] [address] [id number] [address] [place] [phone] Jun, Encounter for immunization Z 23 [facility] [place] [address] [id number] [address] [place] [phone] Jul, [facility] [place] [address] [id number] [address] [place] [phone] Jun, Encounter for immunization Z 23 [facility] [place] [address] [id number] [address] [place] [phone] May, [facility] [place] [address] [facility] [id number] [address] [place] [phone] 16 Oct, 2015 Encounter for immunization Z 23 [facility] [address] [id number] [address] [place] [address], [place] [address] 29 May, 2015 [facility] [address] [id number] [address] [place] [address], [place] [address] May, [facility] [address] [id number] [address] [place] [address], [place] [address] Apr, [facility] [address] [id number] [address] [place] [address], [place] [address] Feb, [facility] [address] [id number] [address] [place] [address], [place] [address] Feb, [facility] [address] [id number] [address] [place] [address], [place] [address] Feb, [facility] [address] [id number] [address] [place] [address], [place] [address] January, [facility] [address] [id number] [address] [place] [phone] January, [facility] [address] [id number] [address] [place] [address], [place] [address] Dec, [facility] [address] [id number] [address] [place] [id number] Dec, [facility] [address] [id number] [address] [place] [phone] Nov, [facility] [address] [id number] [address] [place] [id number] Nov, [facility] [address] [id number] [address] [place] [phone] Nov, [facility] [address] [id number] [address] [place] [phone] Nov, [facility] [address] [id number] [address] [place] [id number] Nov, [facility] [address] [id number] [address] [place] [phone] Nov, [facility] [address] [id number] [address] [place] [address], [place] [address] Nov, [facility] [address] [id number] [address] [place] [address], [place] [address] Oct, [facility] [address] [id number] [address] [place] [address], [place] [address] Oct, [facility] [address] [id number] [address] [place] [address], [place] [address] Oct, [facility] [address] [id number] [address] [place] [address], [place] [address] Oct, [facility] [address] [id number] [address] [place] [address], [place] [address] Oct, [facility] [address] [id number] [address] [place] [address], [place] [address] Sep, [facility] [address] [id number] [address] [place] [address], [place] [address] Sep, [facility] [address] [id number] [address] [place] [address], [place] [address] Sep, [facility] [address] [id number] [address] [place] [address], [place] [address] Sep, [facility] [address] [id number] [address] [place] [address], [place] [address] Sep, [facility] [address] [id number] [address] [place] [address], [place] [address] Sep, [facility] [address] [id number] [address] [place] [address], [place] [address] Sep, [facility] [address] [id number] [address] [place] [address], [place] [address] Sep, [facility] [address] [id number] [address] [place] [address], [place] [address] Sep, [facility] [address] [id number] [address] [place] [address], [place] [address] Sep, [facility] [address] [id number] [address] [place] [address], [place] [address] Aug, [facility] [address] [id number] [address] [place] [address], [place] [address] Aug, [facility] [address] [id number] [address] [place] [address], [place] [address] Aug, [facility] [address] [id number] [address] [place] [address], [place] [address] Aug, [facility] [address] [id number] [address] [place] [address], [place] [address] Aug, [facility] [address] [id number] [address] [place] [address], [place] [address] Aug, [facility] [address] [id number] [address] [place] [address], [place] [address] Aug, [facility] [address] [id number] [address] [place] [address], [place] [address] Aug, [facility] [address] [id number] [address] [place] [address], [place] [address] Aug, [facility] [address] [id number] [address] [place] [address], [place] [address] Aug, [facility] [address] [id number] [address] [place] [address], [place] [address] Aug, [facility] [address] [id number] [address] [place] [address], [place] [address] Aug, [facility] [address] [id number] [address] [place] [address], [place] [address] Aug, [facility] [address] [id number] [address] [place] [address], [place] [address] Aug, [facility] [address] [id number] [address] [place] [address], [place] [address] 17 Aug, 2014 [facility] [address] [id number] [address] [place] [address], [place] [address] 17 Aug, 2014 [facility] [address] [id number] [address] [place] [address], [place] [address] 16 Aug, 2014 [facility] [address] [id number] [address] [place] [address], [place] [address] 16 Aug, 2014 [facility] [address] [id number] [address] [place] [address], [place] [address] Aug, [facility] [address] [id number] [address] [place] [address], [place] [address] Aug, [facility] [address] [id number] [address] [place] [address], [place] [address] Aug, [facility] [address] [id number] [address] [place] [address], [place] [address] Aug, [facility] [address] [id number] [address] [place] [address], [place] [address] Aug, [facility] [address] [id number] [address] [place] [address], [place] [address] 05 Aug, 2014 [facility] [address] [id number] [address] [place] [address], [place] [address] Jul, [facility] [address] [id number] [address] [place] [address], [place] [address] Jul, [facility] [address] [id number] [address] [place] [address], [place] [address] Jun, [facility] [address] [id number] [address] [place] [address], [place] [address] Jun, [facility] [address] [id number] [address] [place] [address], [place] [address] Jun, [facility] [address] [id number] [address] [place] [address], [place] [address] Jun, [facility] [address] [id number] [address] [place] [address], [place] [address] 15 Jun, 2014 [facility] [address] [id number] [address] [place] [address], [place] [address] 15 Jun, 2014 [facility] [address] [id number] [address] [place] [address], [place] [address] 14 Jun, 2014 [facility] [address] [id number] [address] [place] [address], [place] [address] 14 Jun, 2014 [facility] [address] [id number] [address] [place] [address], [place] [address] 13 Jun, 2014 [facility] [address] [id number] [address] [place] [address], [place] [address] 13 Jun, 2014 [facility] [address] [id number] [address] [place] [address], [place] [address] 13 Jun, 2014 [facility] [address] [id number] [address] [place] [address], [place] [address] Jun, [facility] [address] [id number] [address] [place] [address], [place] [address] 06 Jun, 2014 [facility] [address] [id number] [address] [place] [address], [place] [address] 06 Jun, 2014 [facility] [address] [id number] [address] [place] [address], [place] [address] 26 May, 2013 [facility] [address] [id number] [address] [place] [address], [place] [address] 26 May, 2013 [facility] [address] [id number] [address] [place] [address], [place] [address] 22 May, 2013 [facility] [address] [id number] [address] [place] [address], [place] [address] 22 May, 2013 [facility] [address] [id number] [address] [place] [address], [place] [address] 04 May, 2013 [facility] [address] [id number] [address] [place] [address], [place] [address] May, [facility] [address] [id number] [facility] [place] [address] May, [facility] [address] [id number] [address] [place] [address], [place] [address] May, [facility] [address] [id number] [address] [place] [address], [place] [address] Apr, [facility] [address] [id number] [address] [place] [address], [place] [address] Apr, [facility] [address] [id number] [address] [place] [address], [place] [address] Apr, [facility] [address] [id number] [address] [place] [address], [place] [address] Apr, [facility] [address] [id number] [address] [place] [address], [place] [address] Apr, [facility] [address] [id number] [address] [place] [address], [place] [address] Apr, [facility] [address] [id number] [address] [place] [address], [place] [address] Apr, [facility] [address] [id number] [address] [place] [address], [place] [address] Apr, [facility] [address] [id number] [address] [place] [address], [place] [address] Apr, [facility] [address] [id number] [address] [place] [address], [place] [address] Mar, [facility] [address] [id number] [address] [place] [address], [place] [address] Mar, [facility] [address] [id number] [address] [place] [address], [place] [address] Mar, [facility] [address] [id number] [address] [place] [address], [place] [address] Feb, [facility] [address] [id number] [address] [place] [address], [place] [address] 30 Feb, 2014 [facility] [address] [id number] [address] [place] [address] Feb, [facility] [address] [id number] [address] [place] [address] 27 Feb, 2014 [facility] [address] [id number] [address] [place] [address], [place] [address] 17 Feb, 2014 [facility] [address] [id number] [address] [place] [address], [place] [address] 17 Feb, 2014 [facility] [address] [id number] [address] [place] [address], [place] [address] Feb, [facility] [address] [id number] [address] [place] [address], [place] [address] Feb, [facility] [address] [id number] [address] [place] [address], [place] [address] Feb, [facility] [address] [id number] [address] [place] [address], [place] [address] Feb, [facility] [address] [id number] [address] [place] [address], [place] [address] Feb, [facility] [address] [id number] [address] [place] [address], [place] [address] Feb, [facility] [address] [id number] [address] [place] [address], [place] [address] Feb, [facility] [address] [id number] [address] [place] [address], [place] [address] Feb, [facility] [address] [id number] [address] [place] [address], [place] [address] Feb, [facility] [address] [id number] [address] [place] [address], [place] [address] Feb, [facility] [address] [id number] [address] [place] [address], [place] [address] January, [facility] [address] [id number] [address] [place] [address] January, [facility] [address] [id number] [address] [address] January, [facility] [address] [id number] [address] [place] [address] January, [facility] [address] [address] [id number] [address] [place] [address] January, [facility] [address] [id number] [address] [place] [address] January, [facility] [address] [id number] [address] [place] [address], [place] [address] January, [facility] [address] [id number] [address] [place] [address], [place] [address] January, [facility] [address] [id number] [address] [place] [address], [place] [address] January, [facility] [address] [id number] [address] [place] [address], [place] [address] January, [facility] [address] [id number] [address] [place] [address], [place] [address] January, [facility] [address] [id number] [address] [place] [address], [place] [address] January, [facility] [address] [id number] [address] [place] [address], [place] [address] January, [facility] [address] [id number] [address] [place] [address], [place] [address] January, [facility] [address] [id number] [address] [place] [address], [place] [address] January, [facility] [address] [id number] [address] [place] [address], [place] [address] January, [facility] [address] [id number] [address] [place] [address], [place] [address] January, [facility] [address] [id number] [address] [place] [address] January, [facility] [address] [id number] [address] [place] [address], [place] [address] January, [facility] [address] [id number] [address] [place] [address], [place] [address] January, [facility] [address] [id number] [address] [place] [address], [place] [address] January, [facility] [address] [id number] [address] [place] [address], [place] [address] January, [facility] [address] [id number] [address] [place] [address], [place] [address] January, [facility] [address] [id number] [address] [place] [address], [place] [address] January, [facility] [address] [id number] [address] [place] [address], [place] [address] January, [facility] [address] [id number] [address] [place] [address], [place] [address] January, [facility] [address] [id number] [address] [place] [address], [place] [address] Dec, [facility] [address] [id number] [address] [place] [address], [place] [address] Dec, [facility] [address] [id number] [address] [place] [address], [place] [address] Dec, [facility] [address] [id number] [address] [place] [address], [place] [address] Dec, [facility] [address] [id number] [address] [place] [address], [place] [address] Dec, [facility] [address] [id number] [address] [place] [address], [place] [address] Dec, [facility] [address] [id number] [address] [place] [address] Dec, [facility] [address] [id number] [address] [place] [address], [place] [address] Dec, [facility] [address] [id number] [address] [place] [address], [place] [address] Dec, [facility] [address] [id number] [address] [place] [address], [place] [address] Dec, [facility] [address] [id number] [address] [place] [address], [place] [address] Dec, [facility] [address] [id number] [address] [place] [address], [place] [address] Dec, [facility] [address] [id number] [address] [place] [address], [place] [address] Dec, [facility] [address] [id number] [address] [place] [address], [place] [address] Dec, [facility] [address] [id number] [address] [place] [address], [place] [address] Dec, [facility] [address] [id number] [address] [place] [address], [place] [address] Dec, [facility] [address] [id number] [address] [place] [address], [place] [address] Dec, [facility] [address] [id number] [address] [place] [address], [place] [address] Dec, [facility] [address] [id number] [address] [place] [address], [place] [address] Dec, [facility] [address] [id number] [address] [place] [address], [place] [address] Dec, [facility] [address] [id number] [address] [place] [address], [place] [address] Dec, [facility] [address] [id number] [address] [place] [address], [place] [address] Dec, [facility] [address] [id number] [facility] [address] 31 Nov, 2013 [facility] [address] [id number] [facility] [address] 31 Nov, 2013 [facility] [address] [id number] [facility] [address] Nov, [facility] [address] [id number] [address] [place] [address], [place] [address] Nov, [facility] [address] [id number] [address] [place] [address] Nov, [facility] [address] [id number] [address] [place] [address], [place] [address] 24 Nov, 2013 [facility] [address] [id number] [address] [place] [address], [place] [address] Nov, [facility] [address] [id number] [address] [place] [address], [place] [address] Nov, [facility] [address] [id number] [address] [place] [address], [place] [address] 18 Nov, 2013 [facility] [address] [id number] [address] [place] [address], [place] [address] 18 Nov, 2013 [facility] [address] [id number] [address] [place] [address], [place] [address] 18 Nov, 2013 [facility] [address] [id number] [address] [place] [address], [place] [address] 18 Nov, 2013 [facility] [address] [id number] [address] [place] [address], [place] [address] 14 Nov, 2013 [facility] [address] [id number] [address] [place] [address], [place] [address] 14 Nov, 2013 [facility] [address] [id number] [address] [place] [address], [place] [address] 06 Nov, 2013 [facility] [address] [id number] [address] [place] [address], [place] [address] Nov, [facility] [address] [id number] [address] [place] [address], [place] [address] Oct, [facility] [address] [id number] [address] [place] [address], [place] [address] Oct, [facility] [address] [id number] [address] [place] [address], [place] [address] Oct, [facility] [address] [id number] [address] [place] [address], [place] [address] Oct, [facility] [address] [id number] [address] [place] [address], [place] [address] Oct, [facility] [address] [id number] [address] [place] [address], [place] [address] Oct, [facility] [address] [id number] [address] [place] [address], [place] [address] Oct, [facility] [address] [id number] [address] [place] [address], [place] [address] Oct, [facility] [address] [id number] [address] [place] [address], [place] [address] Oct, [facility] [address] [id number] [address] [place] [address], [place] [address] 17 Oct, 2013 [facility] [address] [id number] [address] [place] [address], [place] [address] 14 Oct, 2013 [facility] [address] [id number] [address] [place] [address], [place] [address] 14 Oct, 2013 [facility] [address] [id number] [address] [place] [address], [place] [address] 04 Oct, 2013 [facility] [address] [id number] [address] [place] [address], [place] [address] 04 Oct, 2013 [facility] [address] [id number] [address] [place] [address], [place] [address] Oct, [facility] [address] [id number] [facility] [address] Sep, [facility] [address] [id number] [address] [place] [address], [place] [address] Sep, [facility] [address] [id number] [address] [place] [address], [place] [address] Sep, [facility] [address] [id number] [address] [place] [address], [place] [address] Sep, [facility] [address] [id number] [address] [place] [address], [place] [address] Sep, [facility] [address] [id number] [address] [place] [address], [place] [address] Sep, [facility] [address] [id number] [address] [place] [address], [place] [address] Sep, [facility] [address] [id number] [address] [place] [address], [place] [address] Sep, [facility] [address] [id number] [address] [place] [address], [place] [address] Sep, [facility] [address] [id number] [address] [place] [address], [place] [address] Sep, [facility] [address] [id number] [address] [place] [address], [place] [address] Sep, [facility] [address] [id number] [address] [place] [address], [place] [address] Sep, [facility] [address] [id number] [address] [place] [address], [place] [address] Sep, [facility] [address] [id number] [address] [place] [address], [place] [address] Aug, [facility] [address] [id number] [address] [place] [address], [place] [address] Aug, [facility] [address] [id number] [address] [place] [address], [place] [address] 24 Aug, 2013 [facility] [address] [id number] [address] [place] [address], [place] [address] 24 Aug, 2013 [facility] [address] [id number] [address] [place] [address], [place] [address] 17 Aug, 2013 [facility] [address] [id number] [address] [place] [address], [place] [address] 17 Aug, 2013 [facility] [address] [id number] [address] [place] [address], [place] [address] 16 Aug, 2013 [facility] [address] [id number] [address] [place] [address], [place] [address] 16 Aug, 2013 [facility] [address] [id number] [address] [place] [address], [place] [address] 12 Aug, 2013 [facility] [address] [id number] [address] [place] [address], [place] [address] 12 Aug, 2013 [facility] [address] [id number] [address] [place] [address], [place] [address] 10 Aug, 2013 [facility] [address] [id number] [address] [place] [address], [place] [address] 10 Aug, 2013 [facility] [address] [id number] [address] [place] [address], [place] [address] 02 Aug, 2013 [facility] [address] [id number] [address] [place] [address], [place] [address] Aug, [facility] [address] [id number] [address] [place] [address], [place] [address] Jul, [facility] [address] [id number] [address] [place] [address], [place] [address] Jul, [facility] [address] [id number] [address] [place] [address], [place] [address] 18 Jul, 2013 [facility] [address] [id number] [address] [place] [address], [place] [address] 18 Jul, 2013 [facility] [address] [id number] [address] [place] [address], [place] [address] 14 Jul, 2013 [facility] [address] [id number] [address] [place] [address], [place] [address] 14 Jul, 2013 [facility] [address] [id number] [address] [place] [address], [place] [address] 14 Jul, 2013 [facility] [address] [id number] [address] [place] [address], [place] [address] 14 Jul, 2013 [facility] [address] [id number] [address] [place] [address], [place] [address] 07 Jul, 2013 [facility] [address] [id number] [address] [place] [address], [place] [address] 07 Jul, 2013 [facility] [address] [id number] [address] [place] [address], [place] [address] 06 Jul, 2013 [facility] [address] [id number] [address] [place] [address], [place] [address] 06 Jul, 2013 [facility] [address] [id number] [address] [place] [address], [place] [address] 05 Jul, 2013 [facility] [address] [id number] [address] [place] [address], [place] [address] 05 Jul, 2013 [facility] [address] [id number] [address] [place] [address], [place] [address] 23 Jun, 2013 [facility] [address] [id number] [address] [place] [address], [place] [address] 23 Jun, 2013 [facility] [address] [id number] [address] [place] [address], [place] [address] 15 Jun, 2013 [facility] [address] [id number] [address] [place] [address], [place] [address] 15 Jun, 2013 [facility] [address] [id number] [address] [place] [address], [place] [address] 14 Jun, 2013 [facility] [address] [id number] [address] [place] [address], [place] [address] 24 Sep, 2012 [facility] [address] [id number] [address] [place] [address], [place] [address] 20 Sep, 2012 [facility] [address] [id number] [address] [place] [address], [place] [address] 20 Sep, 2012 [facility] [address] [id number] [address] [place] [address], [place] [address] 20 Sep, 2012 [facility] [address] [id number] [address] [place] [address], [place] [address] 19 Sep, 2012 [facility] [address] [id number] [address] [place] [address], [place] [address] 13 May, 2012 [facility] [address] [id number] [address] [place] [address], [place] [address] 12 May, 2012 [facility] [address] [id number] [address] [place] [address], [place] [address] 12 May, 2012 [facility] [address] [id number] [address] [place] [address], [place] [address] 11 May, 2012 [facility] [address] [id number] [address] [place] [address], [place] [address] 11 May, 2012 [facility] [address] [id number] [address] [place] [address], [place] [address] 11 May, 2012 [facility] [address] [id number] [address] [place] [address], [place] [address] 09 Sep, 2012 [facility] [address] [id number] [address] [place] [address], [place] [address] 05 Sep, 2012 [facility] [address] [id number] [address] [place] [address], [place] [address] 04 Sep, 2012 [facility] [address] [id number] [address] [place] [address], [place] [address] 03 May, 2012 [facility] [address] [id number] [address] [place] [address], [place] [address] 27 Apr, 2012 [facility] [address] [id number] [address] [place] [address], [place] [address] Apr, [facility] [address] [id number] [address] [place] [address], [place] [address] Apr, [facility] [address] [id number] [address] [place] [address], [place] [address] Apr, [facility] [address] [id number] [address] [place] [address], [place] [address] Apr, [facility] [address] [id number] [address] [place] [address], [place] [address] Apr, [facility] [address] [id number] [address] [place] [address], [place] [address] Apr, [facility] [address] [id number] [address] [place] [address], [place] [address] Apr, [facility] [address] [id number] [address] [place] [address], [place] [address] Apr, [facility] [address] [id number] [address] [place] [address], [place] [address] Mar, [facility] [address] [id number] [address] [place] [address], [place] [address] Mar, [facility] [address] [id number] [address] [place] [address], [place] [address] Mar, [facility] [address] [id number] [address] [place] [address], [place] [address] Mar, [facility] [address] [id number] [address] [place] [address], [place] [address] Mar, [facility] [address] [id number] [address] [place] [address], [place] [address] Mar, [facility] [address] [id number] [address] [place] [address], [place] [address] Mar, [facility] [address] [id number] [address] [place] [address], [place] [address] Mar, [facility] [address] [id number] [address] [place] [address], [place] [address] Mar, [facility] [address] [id number] [address] [place] [address], [place] [address] Mar, [facility] [address] [id number] [address] [place] [address], [place] [address] Mar, [facility] [address] [id number] [address] [place] [address], [place] [address] Feb, [facility] [address] [id number] [address] [place] [address], [place] [address] Feb, [facility] [address] [id number] [address] [place] [address], [place] [address] Feb, [facility] [address] [id number] [address] [place] [address], [place] [address] Feb, [facility] [address] [id number] [address] [place] [address], [place] [address] Feb, [facility] [address] [id number] [address] [place] [address], [place] [address] Feb, [facility] [address] [id number] [address] [place] [address], [place] [address] Feb, [facility] [address] [id number] [address] [place] [address], [place] [address] Feb, [facility] [address] [id number] [address] [place] [address], [place] [address] Feb, [facility] [address] [id number] [address] [place] [address], [place] [address] January, [facility] [address] [id number] [address] [place] [address], [place] [address] January, [facility] [address] [id number] [address] [place] [address], [place] [address] January, [facility] [address] [id number] [address] [place] [address], [place] [address] January, [facility] [address] [id number] [address] [place] [address], [place] [address] January, [facility] [address] [id number] [address] [place] [address], [place] [address] January, [facility] [address] [id number] [address] [place] [address], [place] [address] January, [facility] [address] [id number] [address] [place] [address], [place] [address] January, [facility] [address] [id number] [address] [place] [address], [place] [address] January, [facility] [address] [id number] [address] [place] [address], [place] [address] January, [facility] [address] [id number] [address] [place] [address], [place] [address] January, [facility] [address] [id number] [address] [place] [address], [place] [address] January, [facility] [address] [id number] [address] [place] [address], [place] [address] January, [facility] [address] [id number] [address] [place] [address], [place] [address] January, [facility] [address] [id number] [address] [place] [address], [place] [address] January, [facility] [address] [id number] [address] [place] [address], [place] [address] January, [facility] [address] [id number] [address] [place] [address], [place] [address] January, [facility] [address] [id number] [address] [place] [address], [place] [address] January, [facility] [address] [id number] [address] [place] [address], [place] [address] January, [facility] [address] [id number] [address] [place] [address], [place] [address] January, [facility] [address] [id number] [address] [place] [address], [place] [address] January, [facility] [address] [id number] [address] [place] [address], [place] [address] January, [facility] [address] [id number] [address] [place] [address], [place] [address] January, [facility] [address] [id number] [address] [place] [address], [place] [address] Dec, [facility] [address] [id number] [address] [place] [address], [place] [address] Dec, [facility] [address] [id number] [address] [place] [address], [place] [address] Dec, [facility] [address] [id number] [address] [place] [address], [place] [address] Dec, [facility] [address] [id number] [address] [place] [address], [place] [address] Dec, [facility] [address] [id number] [address] [place] [address], [place] [address] Nov, [facility] [address] [id number] [address] [place] [address], [place] [address] Oct, [facility] [address] [id number] [address] [place] [address], [place] [address] Oct, [facility] [address] [id number] [address] [place] [address], [place] [address] Oct, [facility] [address] [id number] [address] [place] [address], [place] [address] Oct, [facility] [address] [id number] [address] [place] [address], [place] [address] Oct, [facility] [address] [id number] [address] [place] [address], [place] [address] Sep, [facility] [address] [id number] [address] [place] [address], [place] [address] Sep, [facility] [address] [id number] [address] [place] [address], [place] [address] Sep, [facility] [address] [id number] [address] [place] [address], [place] [address] Aug, [facility] [address] [id number] [address] [place] [address], [place] [address] Aug, [facility] [address] [id number] [address] [place] [address], [place] [address] Aug, [facility] [address] [id number] [address] [place] [address], [place] [address] Aug, [facility] [address] [id number] [address] [place] [address], [place] [address] Jul, [facility] [address] [id number] [address] [place] [address], [place] [address] Jul, [facility] [address] [id number] [address] [place] [address], [place] [address] Jul, [facility] [address] [id number] [address] [place] [address], [place] [address] Jul, [facility] [address] [id number] [address] [place] [address], [place] [address] Jul, [facility] [address] [id number] [address] [place] [address] Jul, [facility] [address] [id number] [address] [place] [address], [place] [address] Jun, [facility] [address] [id number] [address] [place] [address], [place] [address] Jun, [facility] [address] [id number] [address] [place] [address], [place] [address] Jun, [facility] [address] [id number] [address] [place] [address], [place] [address] Jun, [facility] [address] [id number] [address] [place] [address], [place] [address] Jun, [facility] [address] [id number] [address] [place] [address], [place] [address] Jun, [facility] [address] [id number] [address] [place] [address], [place] [address] Jun, [facility] [address] [id number] [address] [place] [address], [place] [address] Jun, [facility] [address] [id number] [address] [place] [address], [place] [address] Jun, [facility] [address] [id number] [address] [place] [address], [place] [address] Jun, [facility] [address] [id number] [address] [place] [address], [place] [address] May, [facility] [address] [id number] [address] [place] [address], [place] [address] 08 May, 2012 [facility] [address] [id number] [address] [place] [address], [place] [address] May, [facility] [address] [id number] [address] [place] [address], [place] [address] 30 Apr, 2012 [facility] [address] [id number] [address] [place] [address], [place] [address] Apr, [facility] [address] [id number] [address] [place] [address], [place] [address] 14 Apr, 2012 [facility] [address] [id number] [address] [place] [address], [place] [address] Apr, [facility] [address] [id number] [address] [place] [address], [place] [address] Apr, [facility] [address] [id number] [address] [place] [address], [place] [address] Apr, [facility] [address] [id number] [address] [place] [address], [place] [address] Apr, [facility] [address] [id number] [address] [place] [address], [place] [address] Apr, [facility] [address] [id number] [address] [place] [address], [place] [address] Apr, [facility] [address] [id number] [address] [place] [address], [place] [address] Mar, [facility] [address] [id number] [address] [place] [address], [place] [address] Mar, [facility] [address] [id number] [address] [place] [address], [place] [address] Mar, [facility] [address] [id number] [address] [place] [address], [place] [address] Mar, [facility] [address] [id number] [address] [place] [address], [place] [address] Feb, [facility] [address] [id number] [address] [place] [address], [place] [address] Feb, [facility] [address] [id number] [address] [place] [address], [place] [address] Feb, [facility] [address] [id number] [address] [place] [address], [place] [address] January, [facility] [address] [id number] [address] [place] [address], [place] [address] January, [facility] [address] [id number] [address] [place] [address], [place] [address] January, [facility] [address] [id number] [address] [place] [address], [place] [address] January, [facility] [address] [id number] [address] [place] [address], [place] [address] January, [facility] [address] [id number] [address] [place] [address], [place] [address] 30 Dec, 2011 [facility] [address] [id number] [address] [place] [address], [place] [address] Dec, [facility] [address] [id number] [address] [place] [address], [place] [address] 16 Dec, 2011 [facility] [address] [id number] [address] [place] [address], [place] [address] Oct, [facility] [address] [id number] [address] [place] [address], [place] [address] Oct, [facility] [address] [id number] [address] [place] [address], [place] [address] Oct, [facility] [address] [id number] [address] [place] [address], [place] [address] Sep, [facility] [address] [id number] [address] [place] [address], [place] [address] Sep, [facility] [address] [id number] [address] [place] [address], [place] [address] Aug, [facility] [address] [id number] [address] [place] [address], [place] [address] Jul, [facility] [address] [id number] [address] [place] [address], [place] [address] Jul, [facility] [address] [id number] [address] [place] [address], [place] [address] Mar, [facility] [address] [id number] [address] [place] [address], [place] [address] Aug, [facility] [address] [id number] [address] [place] [address], [place] [address] Jul, [facility] [address] [id number] [address] [place] [address], [place] [address] Jul, [facility] [address] [id number] [address] [place] [address], [place] [address] Jul, [facility] [address] [id number] [address] [place] [address], [place] [address] 04 Jul, 2010 [facility] [address] [id number] [address] [place] [address], [place] [address] 14 Jun, 2010 [facility] [address] [id number] [address] [place] [address], [place] [address] 12 Jun, 2010 [facility] [address] [id number] [address] [place] [address], [place] [address] 17 Apr, 2010 [facility] [address] [id number] [address] [place] [address], [place] [address] Aug, [facility] [address] [id number] [address] [place] [address], [place] [address] Jul, [facility] [address] [id number] [address] [place] [address], [place] [address] Jul, [facility] [address] [id number] [address] [place] [address], [place] [address] Jul, [facility] [address] [id number] [address] [place] [address], [place] [address] 23 Jun, 2009 [facility] [address] [id number] [address] [place] [address], [place] [address] 10 May, 2009 [facility] [address] [id number] [address] [place] [address], [place] [address] 14 Dec, 2008 [facility] [address] [id number] [address] [place] [address], [place] [address] Nov, [facility] [address] [id number] [address] [place] [address], [place] [address] 10 Oct, 2008 [facility] [address] [id number] [address] [place] [address], [place] [address] 05 Aug, 2008 [facility] [address] [id number] [address] [place] [address], [place] [address] 03 Aug, 2008 [facility] [address] [id number] [address] [place] [id number] Jun, IMMUNIZATIONS No Known Immunizations SOCIAL HISTORY [...] x 3 day s 04/2012 Hospitalization History [facility]- Right wrist injury 03/29/2018
--- OUTSIDE RECORDS SUMMARY | 2020-04-09 00:14 | XMS REPORT ---
Author Author Kateryna UMANZOR Organization [facility] Address [address] [place] [address] Care Team Providers Care Mental Health Therapist Name Role Phone ZENA UMANZOR Unavailable PROBLEMS Type Condition ICD9-CM Code VSF19-RM Code Onset Dates Condition S tatus SNOMED Code Problem Irregular menses N92.6 Active 801 74763 Problem Migraine with aura and without status migrainosu s, not intractable G43.109 Active 5786752 Problem Uncontrolled type 2 diabetes mellitus with hyperglycemia E11.65 Active 201277075 Problem Morbid obesity due to excess calories E66.01 Active 942611734 Problem RLS (restless legs syndrome) G25.81 A ctive 37728964 Problem Morbid obesity E66.01 Active 65420 6002 ALLERGIES No Information ENCOUNTERS Encounter Location Date Diagnosis [facility] [address] [facility] [id number] [address] [place] [id number] Dec, [facility] [address] [facility] [id number] [address] [place] [phone] Dec, [facility] [address] [facility] [id number] [address] [place] [phone] Dec, Uncontrolled type 2 diabetes mellitus with hyperglycemia E11.65 [facility] [address] [facility] [id number] [address] [place] [phone] 07 Dec, 2019 [facility] [address] [facility] [id number] [address] [place] [phone] Dec, [facility] [address] [facility] [id number] [address] [place] [phone] Dec, [facility] [address] [facility] [id number] [address] [place] [phone] Nov, [facility] [address] [facility] [id number] [address] [place] [id number] 28 Nov, 2019 [facility] [address] [id number] [address] [place] [phone] Nov, [facility] [address] [facility] [id number] [address] [place] [id number] 02 Nov, 2019 RLS (restless legs syndrome) G25.81 [facility] [address] [facility] [id number] [address] [place] [id number] 15 Oct, 2019 [facility] [address] [id number] [address] [place] [phone] 09 Oct, 2019 Influenza J11.1 [facility] [address] [facility] [id number] [address] [place] [id number] 16 Sep, 2019 [facility] [address] [facility] [id number] [address] [place] [id number] 14 Sep, 2019 [facility] [address] [facility] [id number] [address] [place] [phone] 14 Sep, 2019 [facility] [address] [facility] [id number] [address] [place] [phone] 13 Sep, 2019 [facility] [address] [facility] [id number] [address] [place] [phone] 10 Sep, 2019 Pneumonia of left lower lobe due to infectious organism J18.9 and Migraine with aura and without status migrainosus, not intractable G43.109 [facility] [address] [facility] [id number] [address] [place] [phone] 10 Sep, 2019 [facility] [address] [facility] [id number] [address] [place] [phone] Sep, [facility] [address] [facility] [id number] [address] [place] [id number] 08 Sep, 2019 [facility] [address] [facility] [id number] [address] [place] [id number] 08 Sep, 2019 [facility] [address] [facility] [id number] [address] [place] [id number] Sep, Pneumonia of left lower lobe due to infectious organism J18.9 and Migraine with aura and without status migrainosus, not intractable G43.109 [facility] [address] [id number] [address] [place] [phone] Aug, Irregular menses N92.6 ; Wel l woman exam Z01.419 ; Pelvic cramping R10.2 and Left breast lump N63.20 [facility] [address] [id number] [address] [place] [phone] Aug, [facility] [address] [id number] [address] [place] [id number] Aug, Well woman exam Z01.419 ; Le ft breast lump N63.20 ; Irregular menses N92.6 ; Encounter for immunization Z23 ; Pelvic cramping R10.2 and Screening for cervical cancer Z12.4 [facility] [address] [id number] [address] [place] [phone] Aug, [facility] [address] [id number] [address] [place] [id number] Aug, [facility] [address] [id number] [address] [place] [phone] Aug, [facility] [address] [id number] [address] [place] [phone] Jul, [facility] [address] [id number] [address] [place] [phone] Jun, [facility] [address] [id number] [address] [place] [id number] Jun, [facility] [address] [id number] [address] [place] [phone] Jun, [facility] [address] [id number] [address] [place] [phone] Jun, BMI 50.0-59.9, adult Z68.43 [facility] [address] [id number] Jun, [facility] [address] [id number] May, Acute non-recurrent sinusiti s, unspecified location J01.90 ; Diarrhea, unspecified R19.7 ; Vomiting, unspecified R11.10 and Morbid obesity E66.01 [place] [address] [address] Apr, [place] [address] [address] Apr, Anemia due to other cause, n ot classified D64.89 and D-dimer, elevated R79.89 [place] [address] [address] Apr, [place] [address] [address] Apr, [place] [address] [address] Mar, Anemia due to other cause, n ot classified D64.89 and D-dimer, elevated R79.89 [place] [address] [address] Mar, Leg edema, right R60.0 ; Hig h risk medication use Z79.899 and Morbid obesity E66.01 [place] [address] [address] Mar, BMI 50.0-59.9, adult Z68.43 [place] [address] [address] Mar, [place] [address] [address] January, Uncontrolled type 2 diabetes mellitus with hyperglycemia E11.65 ; RLS (restless legs syndrome) G25.81 and Morbid obesity E66.01 [facility] [address] [id number] [address] [place] [id number] 15 Oct, 2018 Lipoma of right lower extrem ity D17.23 [facility] [address] [id number] [address] [place] [phone] Oct, Lipoma of right lower extrem ity D17.23 [facility] [address] [id number] [address] [place] [phone] Sep, [facility] [address] [id number] [address] [place] [phone] Sep, [facility] [address] [id number] [address] [place] [phone] Sep, [facility] [address] [id number] [address] [place] [phone] Sep, [facility] [address] [facility] [id number] [address] [place] [phone] Sep, [facility] [address] [id number] [address] [place] [id number] Aug, Uncontrolled type 2 diabetes mellitus with hyperglycemia E11.65 ; Morbid obesity due to excess calories E66.01 ; Lipoma of torso D17.1 and BMI 50.0-59.9, adult Z68.43 [facility] [address] [id number] [address] [place] [phone] Jun, Encounter for immunization Z 23 [facility] [address] [id number] [address] [place] [phone] Jul, [facility] [address] [id number] [address] [place] [id number] Jun, Encounter for immunization Z 23 [facility] [address] [id number] [address] [place] [phone] May, [facility] [address] [facility] [id number] [address] [place] [id number] 16 Oct, 2015 Encounter for immunization Z 23 [facility] [address] [id number] [address] [place] [address], [place] [address] 29 May, 2015 [facility] [address] [id number] [address] [place] [address], [place] [address] May, [facility] [address] [id number] [address] [place] [address], [place] [address] Apr, [facility] [address] [id number] [address] [place] [address], [place] [address] Feb, [facility] [address] [id number] [address] [place] [address], [place] [address] Feb, [facility] [address] [id number] [address] [place] [address], [place] [address] Feb, [facility] [address] [id number] [address] [place] [address], [place] [address] January, [facility] [address] [id number] [address] [place] [phone] January, [facility] [address] [id number] [address] [place] [address], [place] [address] Dec, [facility] [address] [id number] [address] [place] [id number] Dec, [facility] [address] [id number] [address] [place] [phone] Nov, [facility] [address] [id number] [address] [place] [phone] Nov, [facility] [address] [id number] [address] [place] [phone] Nov, [facility] [address] [id number] [address] [place] [phone] Nov, [facility] [address] [id number] [address] [place] [phone] Nov, [facility] [address] [id number] [address] [place] [phone] Nov, [facility] [address] [id number] [address] [place] [address], [place] [address] Nov, [facility] [address] [id number] [address] [place] [address], [place] [address] Oct, [facility] [address] [id number] [address] [place] [address], [place] [address] Oct, [facility] [address] [id number] [address] [place] [address], [place] [address] Oct, [facility] [address] [id number] [address] [place] [address], [place] [address] Oct, [facility] [address] [id number] [address] [place] [address], [place] [address] Oct, [facility] [address] [id number] [address] [place] [address], [place] [address] Sep, [facility] [address] [id number] [address] [place] [address], [place] [address] Sep, [facility] [address] [id number] [address] [place] [address], [place] [address] Sep, [facility] [address] [id number] [address] [place] [address], [place] [address] Sep, [facility] [address] [id number] [address] [place] [address], [place] [address] Sep, [facility] [address] [id number] [address] [place] [address], [place] [address] Sep, [facility] [address] [id number] [address] [place] [address], [place] [address] Sep, [facility] [address] [id number] [address] [place] [address], [place] [address] Sep, [facility] [address] [id number] [address] [place] [address], [place] [address] Sep, [facility] [address] [id number] [address] [place] [address], [place] [address] Sep, [facility] [address] [id number] [address] [place] [address], [place] [address] Aug, [facility] [address] [id number] [address] [place] [address], [place] [address] Aug, [facility] [address] [id number] [address] [place] [address], [place] [address] Aug, [facility] [address] [id number] [address] [place] [address], [place] [address] Aug, [facility] [address] [id number] [address] [place] [address], [place] [address] Aug, [facility] [address] [id number] [address] [place] [address], [place] [address] Aug, [facility] [address] [id number] [address] [place] [address], [place] [address] Aug, [facility] [address] [id number] [address] [place] [address], [place] [address] Aug, [facility] [address] [id number] [address] [place] [address], [place] [address] Aug, [facility] [address] [id number] [address] [place] [address], [place] [address] Aug, [facility] [address] [id number] [address] [place] [address], [place] [address] Aug, [facility] [address] [id number] [address] [place] [address], [place] [address] Aug, [facility] [address] [id number] [address] [place] [address], [place] [address] Aug, [facility] [address] [id number] [address] [place] [address], [place] [address] Aug, [facility] [address] [id number] [address] [place] [address], [place] [address] 17 Aug, 2014 [facility] [address] [id number] [address] [place] [address], [place] [address] 17 Aug, 2014 [facility] [address] [id number] [address] [place] [address], [place] [address] 16 Aug, 2014 [facility] [address] [id number] [address] [place] [address], [place] [address] 16 Aug, 2014 [facility] [address] [id number] [address] [place] [address], [place] [address] Aug, [facility] [address] [id number] [address] [place] [address], [place] [address] Aug, [facility] [address] [id number] [address] [place] [address], [place] [address] Aug, [facility] [address] [id number] [address] [place] [address], [place] [address] Aug, [facility] [address] [id number] [address] [place] [address], [place] [address] Aug, [facility] [address] [id number] [address] [place] [address], [place] [address] 05 Aug, 2014 [facility] [address] [id number] [address] [place] [address], [place] [address] Jul, [facility] [address] [id number] [address] [place] [address], [place] [address] Jul, [facility] [address] [id number] [address] [place] [address], [place] [address] Jun, [facility] [address] [id number] [address] [place] [address], [place] [address] Jun, [facility] [address] [id number] [address] [place] [address], [place] [address] Jun, [facility] [address] [id number] [address] [place] [address], [place] [address] Jun, [facility] [address] [id number] [address] [place] [address], [place] [address] 15 Jun, 2014 [facility] [address] [id number] [address] [place] [address], [place] [address] 15 Jun, 2014 [facility] [address] [id number] [address] [place] [address], [place] [address] 14 Jun, 2014 [facility] [address] [id number] [address] [place] [address], [place] [address] 14 Jun, 2014 [facility] [address] [id number] [address] [place] [address], [place] [address] 13 Jun, 2014 [facility] [address] [id number] [address] [place] [address], [place] [address] 13 Jun, 2014 [facility] [address] [id number] [address] [place] [address], [place] [address] 13 Jun, 2014 [facility] [address] [id number] [address] [place] [address], [place] [address] Jun, [facility] [address] [id number] [address] [place] [address], [place] [address] 06 Jun, 2014 [facility] [address] [id number] [address] [place] [address], [place] [address] 06 Jun, 2014 [facility] [address] [id number] [address] [place] [address], [place] [address] 26 May, 2013 [facility] [address] [id number] [address] [place] [address], [place] [address] 26 May, 2013 [facility] [address] [id number] [address] [place] [address], [place] [address] 22 May, 2013 [facility] [address] [id number] [address] [place] [address], [place] [address] 22 May, 2013 [facility] [address] [id number] [address] [place] [address], [place] [address] 04 May, 2013 [facility] [address] [id number] [address] [place] [address], [place] [address] May, [facility] [address] [id number] [facility] [address] May, [facility] [address] [id number] [address] [place] [address], [place] [address] May, [facility] [address] [id number] [address] [place] [address], [place] [address] Apr, [facility] [address] [id number] [address] [place] [address], [place] [address] Apr, [facility] [address] [id number] [address] [place] [address], [place] [address] Apr, [facility] [address] [id number] [address] [place] [address], [place] [address] Apr, [facility] [address] [id number] [address] [place] [address], [place] [address] Apr, [facility] [address] [id number] [address] [place] [address], [place] [address] Apr, [facility] [address] [id number] [address] [place] [address], [place] [address] Apr, [facility] [address] [id number] [address] [place] [address], [place] [address] Apr, [facility] [address] [id number] [address] [place] [address], [place] [address] Apr, [facility] [address] [id number] [address] [place] [address], [place] [address] Mar, [facility] [address] [id number] [address] [place] [address], [place] [address] Mar, [facility] [address] [id number] [address] [place] [address], [place] [address] Mar, [facility] [address] [id number] [address] [place] [address], [place] [address] Feb, [facility] [address] [id number] [address] [place] [address], [place] [address] 30 Feb, 2014 [facility] [address] [id number] [address] [address] Feb, [facility] [address] [id number] [address] [id number] 27 Feb, 2014 [facility] [address] [id number] [address] [place] [address], [place] [address] 17 Feb, 2014 [facility] [address] [id number] [address] [place] [address], [place] [address] 17 Feb, 2014 [facility] [address] [id number] [address] [place] [address], [place] [address] Feb, [facility] [address] [id number] [address] [place] [address], [place] [address] Feb, [facility] [address] [id number] [address] [place] [address], [place] [address] Feb, [facility] [address] [id number] [address] [place] [address], [place] [address] Feb, [facility] [address] [id number] [address] [place] [address], [place] [address] Feb, [facility] [address] [id number] [address] [place] [address], [place] [address] Feb, [facility] [address] [id number] [address] [place] [address], [place] [address] Feb, [facility] [address] [id number] [address] [place] [address], [place] [address] Feb, [facility] [address] [id number] [address] [place] [address], [place] [address] Feb, [facility] [address] [id number] [address] [place] [address], [place] [address] Feb, [facility] [address] [id number] [address] [place] [address], [place] [address] January, [facility] [address] [id number] [address] [address] January, [facility] [address] [id number] [address] [address] January, [facility] [address] [id number] [address] [address] January, [facility] [address] [id number] [address] [address] January, [facility] [address] [id number] [facility] [address] January, [facility] [address] [id number] [address] [place] [address], [place] [address] January, [facility] [address] [id number] [address] [place] [address], [place] [address] January, [facility] [address] [id number] [address] [place] [address], [place] [address] January, [facility] [address] [id number] [address] [place] [address], [place] [address] January, [facility] [address] [id number] [address] [place] [address], [place] [address] January, [facility] [address] [id number] [address] [place] [address], [place] [address] January, [facility] [address] [id number] [address] [place] [address], [place] [address] January, [facility] [address] [id number] [address] [place] [address], [place] [address] January, [facility] [address] [id number] [address] [place] [address], [place] [address] January, [facility] [address] [id number] [address] [place] [address], [place] [address] January, [facility] [address] [id number] [address] [place] [address], [place] [address] January, [facility] [address] [id number] [address] [address] January, [facility] [address] [id number] [address] [place] [address], [place] [address] January, [facility] [address] [id number] [address] [place] [address], [place] [address] January, [facility] [address] [id number] [address] [place] [address], [place] [address] January, [facility] [address] [id number] [address] [place] [address], [place] [address] January, [facility] [address] [id number] [address] [place] [address], [place] [address] January, [facility] [address] [id number] [address] [place] [address], [place] [address] January, [facility] [address] [id number] [address] [place] [address], [place] [address] January, [facility] [address] [id number] [address] [place] [address], [place] [address] January, [facility] [address] [id number] [address] [place] [address], [place] [address] Dec, [facility] [address] [id number] [address] [place] [address], [place] [address] Dec, [facility] [address] [id number] [address] [place] [address], [place] [address] Dec, [facility] [address] [id number] [address] [place] [address], [place] [address] Dec, [facility] [address] [id number] [address] [place] [address], [place] [address] Dec, [facility] [address] [id number] [address] [place] [address], [place] [address] Dec, [facility] [address] [id number] [address] [address] Dec, [facility] [address] [id number] [address] [place] [address], [place] [address] Dec, [facility] [address] [id number] [address] [place] [address], [place] [address] Dec, [facility] [address] [id number] [address] [place] [address], [place] [address] Dec, [facility] [address] [id number] [address] [place] [address], [place] [address] Dec, [facility] [address] [id number] [address] [place] [address], [place] [address] Dec, [facility] [address] [id number] [address] [place] [address], [place] [address] Dec, [facility] [address] [id number] [address] [place] [address], [place] [address] Dec, [facility] [address] [id number] [address] [place] [address], [place] [address] Dec, [facility] [address] [id number] [address] [place] [address], [place] [address] Dec, [facility] [address] [id number] [address] [place] [address], [place] [address] Dec, [facility] [address] [id number] [address] [place] [address], [place] [address] Dec, [facility] [address] [id number] [address] [place] [address], [place] [address] Dec, [facility] [address] [id number] [address] [place] [address], [place] [address] Dec, [facility] [address] [id number] [address] [place] [address], [place] [address] Dec, [facility] [address] [id number] [address] [place] [address], [place] [address] Dec, [facility] [address] [id number] [address] [address] 31 Nov, 2013 [facility] [address] [id number] [address] [address] 31 Nov, 2013 [facility] [address] [id number] [address] [address] Nov, [facility] [address] [id number] [address] [place] [address], [place] [address] Nov, [facility] [address] [id number] [address] [address] Nov, [facility] [address] [id number] [address] [place] [address], [place] [address] 24 Nov, 2013 [facility] [address] [id number] [address] [place] [address], [place] [address] Nov, [facility] [address] [id number] [address] [place] [address], [place] [address] Nov, [facility] [address] [id number] [address] [place] [address], [place] [address] 18 Nov, 2013 [facility] [address] [id number] [address] [place] [address], [place] [address] 18 Nov, 2013 [facility] [address] [id number] [address] [place] [address], [place] [address] 18 Nov, 2013 [facility] [address] [id number] [address] [place] [address], [place] [address] 18 Nov, 2013 [facility] [address] [id number] [address] [place] [address], [place] [address] 14 Nov, 2013 [facility] [address] [id number] [address] [place] [address], [place] [address] 14 Nov, 2013 [facility] [address] [id number] [address] [place] [address], [place] [address] 06 Nov, 2013 [facility] [address] [id number] [address] [place] [address], [place] [address] Nov, [facility] [address] [id number] [address] [place] [address], [place] [address] Oct, [facility] [address] [id number] [address] [place] [address], [place] [address] Oct, [facility] [address] [id number] [address] [place] [address], [place] [address] Oct, [facility] [address] [id number] [address] [place] [address], [place] [address] Oct, [facility] [address] [id number] [address] [place] [address], [place] [address] Oct, [facility] [address] [id number] [address] [place] [address], [place] [address] Oct, [facility] [address] [id number] [address] [place] [address], [place] [address] Oct, [facility] [address] [id number] [address] [place] [address], [place] [address] Oct, [facility] [address] [id number] [address] [place] [address], [place] [address] Oct, [facility] [address] [id number] [address] [place] [address], [place] [address] 17 Oct, 2013 [facility] [address] [id number] [address] [place] [address], [place] [address] 14 Oct, 2013 [facility] [address] [id number] [address] [place] [address], [place] [address] 14 Oct, 2013 [facility] [address] [id number] [address] [place] [address], [place] [address] 04 Oct, 2013 [facility] [address] [id number] [address] [place] [address], [place] [address] 04 Oct, 2013 [facility] [address] [id number] [address] [place] [address], [place] [address] Oct, [facility] [address] [id number] [address] [address] Sep, [facility] [address] [id number] [address] [place] [address], [place] [address] Sep, [facility] [address] [id number] [address] [place] [address], [place] [address] Sep, [facility] [address] [id number] [address] [place] [address], [place] [address] Sep, [facility] [address] [id number] [address] [place] [address], [place] [address] Sep, [facility] [address] [id number] [address] [place] [address], [place] [address] Sep, [facility] [address] [id number] [address] [place] [address], [place] [address] Sep, [facility] [address] [id number] [address] [place] [address], [place] [address] Sep, [facility] [address] [id number] [address] [place] [address], [place] [address] Sep, [facility] [address] [id number] [address] [place] [address], [place] [address] Sep, [facility] [address] [id number] [address] [place] [address], [place] [address] Sep, [facility] [address] [id number] [address] [place] [address], [place] [address] Sep, [facility] [address] [id number] [address] [place] [address], [place] [address] Sep, [facility] [address] [id number] [address] [place] [address], [place] [address] Aug, [facility] [address] [id number] [address] [place] [address], [place] [address] Aug, [facility] [address] [id number] [address] [place] [address], [place] [address] 24 Aug, 2013 [facility] [address] [id number] [address] [place] [address], [place] [address] 24 Aug, 2013 [facility] [address] [id number] [address] [place] [address], [place] [address] 17 Aug, 2013 [facility] [address] [id number] [address] [place] [address], [place] [address] 17 Aug, 2013 [facility] [address] [id number] [address] [place] [address], [place] [address] 16 Aug, 2013 [facility] [address] [id number] [address] [place] [address], [place] [address] 16 Aug, 2013 [facility] [address] [id number] [address] [place] [address], [place] [address] 12 Aug, 2013 [facility] [address] [id number] [address] [place] [address], [place] [address] 12 Aug, 2013 [facility] [address] [id number] [address] [place] [address], [place] [address] 10 Aug, 2013 [facility] [address] [id number] [address] [place] [address], [place] [address] 10 Aug, 2013 [facility] [address] [id number] [address] [place] [address], [place] [address] 02 Aug, 2013 [facility] [address] [id number] [address] [place] [address], [place] [address] Aug, [facility] [address] [id number] [address] [place] [address], [place] [address] Jul, [facility] [address] [id number] [address] [place] [address], [place] [address] Jul, [facility] [address] [id number] [address] [place] [address], [place] [address] 18 Jul, 2013 [facility] [address] [id number] [address] [place] [address], [place] [address] 18 Jul, 2013 [facility] [address] [id number] [address] [place] [address], [place] [address] 14 Jul, 2013 [facility] [address] [id number] [address] [place] [address], [place] [address] 14 Jul, 2013 [facility] [address] [id number] [address] [place] [address], [place] [address] 14 Jul, 2013 [facility] [address] [id number] [address] [place] [address], [place] [address] 14 Jul, 2013 [facility] [address] [id number] [address] [place] [address], [place] [address] 07 Jul, 2013 [facility] [address] [id number] [address] [place] [address], [place] [address] 07 Jul, 2013 [facility] [address] [id number] [address] [place] [address], [place] [address] 06 Jul, 2013 [facility] [address] [id number] [address] [place] [address], [place] [address] 06 Jul, 2013 [facility] [address] [id number] [address] [place] [address], [place] [address] 05 Jul, 2013 [facility] [address] [id number] [address] [place] [address], [place] [address] 05 Jul, 2013 [facility] [address] [id number] [address] [place] [address], [place] [address] 23 Jun, 2013 [facility] [address] [id number] [address] [place] [address], [place] [address] 23 Jun, 2013 [facility] [address] [id number] [address] [place] [address], [place] [address] 15 Jun, 2013 [facility] [address] [id number] [address] [place] [address], [place] [address] 15 Jun, 2013 [facility] [address] [id number] [address] [place] [address], [place] [address] 14 Jun, 2013 [facility] [address] [id number] [address] [place] [address], [place] [address] 24 Sep, 2012 [facility] [address] [id number] [address] [place] [address], [place] [address] 20 Sep, 2012 [facility] [address] [id number] [address] [place] [address], [place] [address] 20 Sep, 2012 [facility] [address] [id number] [address] [place] [address], [place] [address] 20 Sep, 2012 [facility] [address] [id number] [address] [place] [address], [place] [address] 19 Sep, 2012 [facility] [address] [id number] [address] [place] [address], [place] [address] 13 May, 2012 [facility] [address] [id number] [address] [place] [address], [place] [address] 12 May, 2012 [facility] [address] [id number] [address] [place] [address], [place] [address] 12 May, 2012 [facility] [address] [id number] [address] [place] [address], [place] [address] 11 May, 2012 [facility] [address] [id number] [address] [place] [address], [place] [address] 11 May, 2012 [facility] [address] [id number] [address] [place] [address], [place] [address] 11 May, 2012 [facility] [address] [id number] [address] [place] [address], [place] [address] 09 Sep, 2012 [facility] [address] [id number] [address] [place] [address], [place] [address] 05 Sep, 2012 [facility] [address] [id number] [address] [place] [address], [place] [address] 04 Sep, 2012 [facility] [address] [id number] [address] [place] [address], [place] [address] 03 May, 2012 [facility] [address] [id number] [address] [place] [address], [place] [address] 27 Apr, 2012 [facility] [address] [id number] [address] [place] [address], [place] [address] Apr, [facility] [address] [id number] [address] [place] [address], [place] [address] Apr, [facility] [address] [id number] [address] [place] [address], [place] [address] Apr, [facility] [address] [id number] [address] [place] [address], [place] [address] Apr, [facility] [address] [id number] [address] [place] [address], [place] [address] Apr, [facility] [address] [id number] [address] [place] [address], [place] [address] Apr, [facility] [address] [id number] [address] [place] [address], [place] [address] Apr, [facility] [address] [id number] [address] [place] [address], [place] [address] Apr, [facility] [address] [id number] [address] [place] [address], [place] [address] Mar, [facility] [address] [id number] [address] [place] [address], [place] [address] Mar, [facility] [address] [id number] [address] [place] [address], [place] [address] Mar, [facility] [address] [id number] [address] [place] [address], [place] [address] Mar, [facility] [address] [id number] [address] [place] [address], [place] [address] Mar, [facility] [address] [id number] [address] [place] [address], [place] [address] Mar, [facility] [address] [id number] [address] [place] [address], [place] [address] Mar, [facility] [address] [id number] [address] [place] [address], [place] [address] Mar, [facility] [address] [id number] [address] [place] [address], [place] [address] Mar, [facility] [address] [id number] [address] [place] [address], [place] [address] Mar, [facility] [address] [id number] [address] [place] [address], [place] [id number] Mar, [facility] [address] [id number] [address] [place] [address], [place] [address] Feb, [facility] [address] [id number] [address] [place] [address], [place] [address] Feb, [facility] [address] [id number] [address] [place] [address], [place] [address] Feb, [facility] [address] [id number] [address] [place] [address], [place] [address] Feb, [facility] [address] [id number] [address] [place] [address], [place] [address] Feb, [facility] [address] [id number] [address] [place] [address], [place] [address] Feb, [facility] [address] [id number] [address] [place] [address], [place] [address] Feb, [facility] [address] [id number] [address] [place] [address], [place] [address] Feb, [facility] [address] [id number] [address] [place] [address], [place] [address] Feb, [facility] [address] [id number] [address] [place] [address], [place] [address] January, [facility] [address] [id number] [address] [place] [address], [place] [address] January, [facility] [address] [id number] [address] [place] [address], [place] [address] January, [facility] [address] [id number] [address] [place] [address], [place] [address] January, [facility] [address] [id number] [address] [place] [address], [place] [address] January, [facility] [address] [id number] [address] [place] [address], [place] [address] January, [facility] [address] [id number] [address] [place] [address], [place] [address] January, [facility] [address] [id number] [address] [place] [address], [place] [address] January, [facility] [address] [id number] [address] [place] [address], [place] [address] January, [facility] [address] [id number] [address] [place] [address], [place] [address] January, [facility] [address] [id number] [address] [place] [address], [place] [address] January, [facility] [address] [id number] [address] [place] [address], [place] [address] January, [facility] [address] [id number] [address] [place] [address], [place] [address] January, [facility] [address] [id number] [address] [place] [address], [place] [address] January, [facility] [address] [id number] [address] [place] [address], [place] [address] January, [facility] [address] [id number] [address] [place] [address], [place] [address] January, [facility] [address] [id number] [address] [place] [address], [place] [address] January, [facility] [address] [id number] [address] [place] [address], [place] [address] January, [facility] [address] [id number] [address] [place] [address], [place] [address] January, [facility] [address] [id number] [address] [place] [address], [place] [address] January, [facility] [address] [id number] [address] [place] [address], [place] [address] January, [facility] [address] [id number] [address] [place] [address], [place] [address] January, [facility] [address] [id number] [address] [place] [address], [place] [address] January, [facility] [address] [id number] [address] [place] [address], [place] [address] Dec, [facility] [address] [id number] [address] [place] [address], [place] [address] Dec, [facility] [address] [id number] [address] [place] [address], [place] [address] Dec, [facility] [address] [id number] [address] [place] [address], [place] [address] Dec, [facility] [address] [id number] [address] [place] [address], [place] [address] Dec, [facility] [address] [id number] [address] [place] [address], [place] [address] Nov, [facility] [address] [id number] [address] [place] [address], [place] [address] Oct, [facility] [address] [id number] [address] [place] [address], [place] [address] Oct, [facility] [address] [id number] [address] [place] [address], [place] [address] Oct, [facility] [address] [id number] [address] [place] [address], [place] [address] Oct, [facility] [address] [id number] [address] [place] [address], [place] [address] Oct, [facility] [address] [id number] [address] [place] [address], [place] [address] Sep, [facility] [address] [id number] [address] [place] [address], [place] [address] Sep, [facility] [address] [id number] [address] [place] [address], [place] [address] Sep, [facility] [address] [address] [id number] [address] [place] [address], [place] [address] Aug, [facility] [address] [id number] [address] [place] [address], [place] [address] Aug, [facility] [address] [id number] [address] [place] [address], [place] [address] Aug, [facility] [address] [id number] [address] [place] [address], [place] [address] Aug, [facility] [address] [id number] [address] [place] [address], [place] [address] Jul, [facility] [address] [id number] [address] [place] [address], [place] [address] Jul, [facility] [address] [id number] [address] [place] [address], [place] [address] Jul, [facility] [address] [id number] [address] [place] [address], [place] [address] Jul, [facility] [address] [id number] [address] [place] [address], [place] [address] Jul, [facility] [address] [id number] [address] [place] [id number] Jul, [facility] [address] [id number] [address] [place] [address], [place] [address] Jun, [facility] [address] [id number] [address] [place] [address], [place] [address] Jun, [facility] [address] [id number] [address] [place] [address], [place] [address] Jun, [facility] [address] [id number] [address] [place] [address], [place] [address] Jun, [facility] [address] [id number] [address] [place] [address], [place] [address] Jun, [facility] [address] [id number] [address] [place] [address], [place] [address] Jun, [facility] [address] [id number] [address] [place] [address], [place] [address] Jun, [facility] [address] [id number] [address] [place] [address], [place] [address] Jun, [facility] [address] [id number] [address] [place] [address], [place] [address] Jun, [facility] [address] [id number] [address] [place] [address], [place] [address] Jun, [facility] [address] [id number] [address] [place] [address], [place] [address] May, [facility] [address] [id number] [address] [place] [address], [place] [address] 08 May, 2012 [facility] [address] [id number] [address] [place] [address], [place] [address] May, [facility] [address] [id number] [address] [place] [address], [place] [address] 30 Apr, 2012 [facility] [address] [id number] [address] [place] [address], [place] [address] Apr, [facility] [address] [id number] [address] [place] [address], [place] [address] 14 Apr, 2012 [facility] [address] [id number] [address] [place] [address], [place] [address] Apr, [facility] [address] [id number] [address] [place] [address], [place] [address] Apr, [facility] [address] [id number] [address] [place] [address], [place] [address] Apr, [facility] [address] [id number] [address] [place] [address], [place] [address] Apr, [facility] [address] [id number] [address] [place] [address], [place] [address] Apr, [facility] [address] [id number] [address] [place] [address], [place] [address] Apr, [facility] [address] [id number] [address] [place] [address], [place] [address] Mar, [facility] [address] [id number] [address] [place] [address], [place] [address] Mar, [facility] [address] [id number] [address] [place] [address], [place] [address] Mar, [facility] [address] [id number] [address] [place] [address], [place] [address] Mar, [facility] [address] [id number] [address] [place] [address], [place] [address] Feb, [facility] [address] [id number] [address] [place] [address], [place] [address] Feb, [facility] [address] [id number] [address] [place] [address], [place] [address] Feb, [facility] [address] [id number] [address] [place] [address], [place] [address] January, [facility] [address] [id number] [address] [place] [address], [place] [address] January, [facility] [address] [id number] [address] [place] [address], [place] [address] January, [facility] [address] [id number] [address] [place] [address], [place] [address] January, [facility] [address] [id number] [address] [place] [address], [place] [address] January, [facility] [address] [id number] [address] [place] [address], [place] [address] 30 Dec, 2011 [facility] [address] [id number] [address] [place] [address], [place] [address] Dec, [facility] [address] [id number] [address] [place] [address], [place] [address] 16 Dec, 2011 [facility] [address] [id number] [address] [place] [address], [place] [address] Oct, [facility] [address] [id number] [address] [place] [address], [place] [address] Oct, [facility] [address] [id number] [address] [place] [address], [place] [address] Oct, [facility] [address] [id number] [address] [place] [address], [place] [address] Sep, [facility] [address] [id number] [address] [place] [address], [place] [address] Sep, [facility] [address] [id number] [address] [place] [address], [place] [address] Aug, [facility] [address] [id number] [address] [place] [address], [place] [address] Jul, [facility] [address] [id number] [address] [place] [address], [place] [address] Jul, [facility] [address] [id number] [address] [place] [address], [place] [address] Mar, [facility] [address] [id number] [address] [place] [address], [place] [address] Aug, [facility] [address] [id number] [address] [place] [address], [place] [address] Jul, [facility] [address] [id number] [address] [place] [address], [place] [address] Jul, [facility] [address] [id number] [address] [place] [address], [place] [address] Jul, [facility] [address] [id number] [address] [place] [address], [place] [address] 04 Jul, 2010 [facility] [address] [id number] [address] [place] [address], [place] [address] 14 Jun, 2010 [facility] [address] [id number] [address] [place] [address], [place] [address] 12 Jun, 2010 [facility] [address] [id number] [address] [place] [address], [place] [address] 17 Apr, 2010 [facility] [address] [id number] [address] [place] [address], [place] [address] Aug, [facility] [address] [id number] [address] [place] [address], [place] [address] Jul, [facility] [address] [id number] [address] [place] [address], [place] [address] Jul, [facility] [address] [id number] [address] [place] [address], [place] [address] Jul, [facility] [address] [id number] [address] [place] [address], [place] [address] 23 Jun, 2009 [facility] [address] [id number] [address] [place] [address], [place] [address] 10 May, 2009 [facility] [address] [id number] [address] [place] [address], [place] [address] 14 Dec, 2008 [facility] [address] [id number] [address] [place] [address], [place] [address] Nov, [facility] [address] [id number] [address] [place] [address], [place] [address] 10 Oct, 2008 [facility] [address] [id number] [address] [place] [address], [place] [address] 05 Aug, 2008 [facility] [address] [id number] [address] [place] [address], [place] [address] 03 Aug, 2008 [facility] [address] [id number] [address] [place] [id number] Jun, IMMUNIZATIONS No Known Immunizations SOCIAL HISTORY [...] x 3 day s 04/2012 Hospitalization History [facility] [place]- Right wrist injury 03/29/2018
--- OUTSIDE RECORDS SUMMARY | 2020-04-09 00:15 | XMS REPORT ---
Author Author Kateryna UMANZOR Organization [facility] Address [address] [place] [address] Care Team Providers Care Store Worker Name Role Phone ZENA UMANZOR Unavailable PROBLEMS Type Condition ICD9-CM Code EHZ84-PQ Code Onset Dates Condition S tatus SNOMED Code Problem Irregular menses N92.6 Active 801 50440 Problem Migraine with aura and without status migrainosu s, not intractable G43.109 Active 0548107 Problem Uncontrolled type 2 diabetes mellitus with hyperglycemia E11.65 Active 971245009 Problem Morbid obesity due to excess calories E66.01 Active 897029671 Problem RLS (restless legs syndrome) G25.81 A ctive 00844594 Problem Morbid obesity E66.01 Active 65897 6002 ALLERGIES No Information ENCOUNTERS Encounter Location Date Diagnosis [facility] [address] [facility] [id number] [address] [place] [id number] 07 Dec, 2019 [facility] [address] [facility] [id number] [address] [place] [address] 06 Dec, 2019 [facility] [address] [facility] [id number] [address] [place] [address] Dec, [facility] [address] [facility] [id number] [address] [place] [id number] 30 Nov, 2019 [facility] [address] [facility] [id number] [address] [place] [address] Nov, [facility] [address] [facility] [id number] [address] [place] [address] Nov, [facility] [address] [facility] [id number] [address] [place] [address] Nov, RLS (restless legs syndrome) G25.81 [facility] [address] [facility] [id number] [address] [place] [address] 15 Oct, 2019 [facility] [address] [id number] [address] [place] [id number] 09 Oct, 2019 Influenza J11.1 [facility] [address] [id number] [address] [place] [id number] 16 Sep, 2019 [facility] [address] [id number] [address] [place] [address] 14 Sep, 2019 [facility] [address] [id number] [address] [place] [address] 14 Sep, 2019 [facility] [address] [id number] [address] [place] [id number] 13 Sep, 2019 [facility] [address] [id number] [address] [place] [address] 10 Sep, 2019 Pneumonia of left lower lobe due to infectious organism J18.9 and Migraine with aura and without status migrainosus, not intractable G43.109 [facility] [address] [id number] [address] [place] [address] 10 Sep, 2019 [facility] [address] [id number] [address] [place] [address] Sep, [facility] [address] [id number] [address] [place] [id number] 08 Sep, 2019 [facility] [address] [id number] [address] [place] [id number] 08 Sep, 2019 [facility] [address] [id number] [address] [place] [id number] 08 Sep, 2019 Pneumonia of left lower lobe due to infectious organism J18.9 and Migraine with aura and without status migrainosus, not intractable G43.109 [facility] [address] [id number] [address] [place] [address] 31 Aug, 2019 Irregular menses N92.6 ; Wel l woman exam Z01.419 ; Pelvic cramping R10.2 and Left breast lump N63.20 [facility] [address] [id number] [address] [place] [address] Aug, [facility] [address] [facility] [id number] [address] [place] [address] Aug, Well woman exam Z01.419 ; Le ft breast lump N63.20 ; Irregular menses N92.6 ; Encounter for immunization Z23 ; Pelvic cramping R10.2 and Screening for cervical cancer Z12.4 [facility] [address] [id number] [address] [place] [address] Aug, [facility] [address] [id number] [address] [place] [id number] Aug, [facility] [address] [facility] [id number] [address] [place] [phone] Aug, [facility] [address] [facility] [id number] [address] [place] [id number] Jul, [facility] [address] [facility] [id number] [address] [place] [address] Jun, [facility] [address] [facility] [id number] [address] [place] [id number] Jun, [facility] [address] [facility] [id number] [address] [place] [address] Jun, [facility] [address] [facility] [id number] [address] [place] [address] Jun, BMI 50.0-59.9, adult Z68.43 [facility] [address] [facility] [id number] [address] [place] [address] Jun, [facility] [address] [facility] [id number] [address] [place] [address] May, Acute non-recurrent sinusiti s, unspecified location J01.90 ; Diarrhea, unspecified R19.7 ; Vomiting, unspecified R11.10 and Morbid obesity E66.01 [facility] [address] [id number] [address] [place] [phone] Apr, [facility] [address] [id number] [address] [place] [phone] Apr, Anemia due to other cause, n ot classified D64.89 and D-dimer, elevated R79.89 [facility] [address] [id number] [address] [place] [address] Apr, [facility] [place] [address] [id number] [address] [place] [address] Apr, [place] [address] [id number] [address] [place] [address] Mar, Anemia due to other cause, n ot classified D64.89 and D-dimer, elevated R79.89 [place] [address] [facility] [id number] [address] [place] [address] Mar, Leg edema, right R60.0 ; Hig h risk medication use Z79.899 and Morbid obesity E66.01 [place] [address] [place] [id number] [address] [place] [address] Mar, BMI 50.0-59.9, adult Z68.43 [place] [address] [facility] [id number] [address] [place] [address] Mar, [place] [address] [place] [id number] [address] [place] [address] January, Uncontrolled type 2 diabetes mellitus with hyperglycemia E11.65 ; RLS (restless legs syndrome) G25.81 and Morbid obesity E66.01 [place] [address] [facility] [id number] [address] [place] [address] Oct, Lipoma of right lower extrem ity D17.23 [place] [address] [facility] [id number] [address] [place] [address] 05 Oct, 2018 Lipoma of right lower extrem ity D17.23 [place] [address] [facility] [id number] [address] [place] [address] Sep, [facility] [address] [id number] [address] [place] [address] Sep, [facility] [address] [facility] [id number] [address] [place] [address] Sep, [facility] [address] [facility] [id number] [address] [place] [address] Sep, [facility] [address] [facility] [id number] [address] [place] [address] Sep, [facility] [address] [facility] [id number] [address] [place] [id number] Aug, Uncontrolled type 2 diabetes mellitus with hyperglycemia E11.65 ; Morbid obesity due to excess calories E66.01 ; Lipoma of torso D17.1 and BMI 50.0-59.9, adult Z68.43 [facility] [address] [facility] [id number] [address] [place] [address] Jun, Encounter for immunization Z 23 [facility] [address] [id number] [address] [place] [address] Jul, [facility] [address] [facility] [id number] [address] [place] [address] Jun, Encounter for immunization Z 23 [facility] [address] [id number] [address] [place] [phone] May, [facility] [address] [facility] [id number] [address] [place] [address] Jun, Encounter for immunization Z 23 [facility] [address] [id number] [address] [place] [address] May, [facility] [address] [facility] [id number] [address] [place] [id number] May, [facility] [address] [facility] [id number] [address] [place] [address] Apr, [facility] [address] [id number] [address] [place] [address], [place] [address] Feb, [facility] [address] [id number] [address] [place] [address], [place] [address] Feb, [facility] [address] [id number] [address] [place] [address], [place] [address] Feb, [facility] [address] [id number] [address] [place] [address], [place] [address] January, [facility] [address] [id number] [address] [place] [address], [place] [address] January, [facility] [address] [id number] [address] [place] [address], [place] [address] Dec, [facility] [address] [id number] [address] [place] [address], [place] [address] Dec, [facility] [address] [id number] [address] [place] [address], [place] [address] Nov, [facility] [address] [id number] [address] [place] [address], [place] [address] Nov, [facility] [address] [id number] [address] [place] [address], [place] [address] Nov, [facility] [address] [id number] [address] [place] [address], [place] [address] Nov, [facility] [address] [id number] [address] [place] [address], [place] [address] Nov, [facility] [address] [id number] [address] [place] [address], [place] [address] Nov, [facility] [address] [id number] [address] [place] [address], [place] [address] Nov, [facility] [address] [id number] [address] [place] [address], [place] [address] 18 Oct, 2014 [facility] [address] [id number] [address] [place] [address], [place] [address] Oct, [facility] [address] [id number] [address] [place] [address], [place] [address] Oct, [facility] [address] [id number] [address] [place] [address], [place] [address] Oct, [facility] [address] [id number] [address] [place] [address], [place] [address] Oct, [facility] [address] [id number] [address] [place] [address], [place] [address] Sep, [facility] [address] [id number] [address] [place] [address], [place] [address] Sep, [facility] [address] [id number] [address] [place] [address], [place] [address] Sep, [facility] [address] [id number] [address] [place] [address], [place] [address] Sep, [facility] [address] [id number] [address] [place] [address], [place] [address] Sep, [facility] [address] [id number] [address] [place] [address], [place] [address] Sep, [facility] [address] [id number] [address] [place] [address], [place] [address] Sep, [facility] [address] [id number] [address] [place] [address], [place] [address] Sep, [facility] [address] [id number] [address] [place] [address], [place] [address] Sep, [facility] [address] [id number] [address] [place] [address], [place] [address] Sep, [facility] [address] [id number] [address] [place] [address], [place] [address] Aug, [facility] [address] [id number] [address] [place] [address], [place] [address] Aug, [facility] [address] [id number] [address] [place] [address], [place] [address] 31 Aug, 2014 [facility] [address] [id number] [address] [place] [address], [place] [address] Aug, [facility] [address] [id number] [address] [place] [address], [place] [address] Aug, [facility] [address] [id number] [address] [place] [address], [place] [address] Aug, [facility] [address] [id number] [address] [place] [address], [place] [address] Aug, [facility] [address] [id number] [address] [place] [address], [place] [address] Aug, [facility] [address] [id number] [address] [place] [address], [place] [address] Aug, [facility] [address] [id number] [address] [place] [address], [place] [address] Aug, [facility] [address] [id number] [address] [place] [address], [place] [address] Aug, [facility] [address] [id number] [address] [place] [address], [place] [address] Aug, [facility] [address] [id number] [address] [place] [address], [place] [address] 18 Aug, 2014 [facility] [address] [id number] [address] [place] [address], [place] [address] 18 Aug, 2014 [facility] [address] [id number] [address] [place] [address], [place] [address] 17 Aug, 2014 [facility] [address] [id number] [address] [place] [address], [place] [address] 17 Aug, 2014 [facility] [address] [id number] [address] [place] [address], [place] [address] 16 Aug, 2014 [facility] [address] [id number] [address] [place] [address], [place] [address] 16 Aug, 2014 [facility] [address] [id number] [address] [place] [address], [place] [address] Aug, [facility] [address] [id number] [address] [place] [address], [place] [address] Aug, [facility] [address] [id number] [address] [place] [address], [place] [address] 08 Aug, 2014 [facility] [address] [id number] [address] [place] [address], [place] [address] 08 Aug, 2014 [facility] [address] [id number] [address] [place] [address], [place] [address] Aug, [facility] [address] [id number] [address] [place] [address], [place] [address] 05 Aug, 2014 [facility] [address] [id number] [address] [place] [address], [place] [address] Jul, [facility] [address] [id number] [address] [place] [address], [place] [address] Jul, [facility] [address] [id number] [address] [place] [address], [place] [address] Jun, [facility] [address] [id number] [address] [place] [address], [place] [address] 27 Jun, 2014 [facility] [address] [id number] [address] [place] [address], [place] [address] 17 Jun, 2014 [facility] [address] [id number] [address] [place] [address] 17 Jun, 2014 [facility] [address] [id number] [address] [place] [address], [place] [address] 15 Jun, 2014 [facility] [address] [id number] [address] [place] [address], [place] [address] 15 Jun, 2014 [facility] [address] [id number] [address] [place] [address] 14 Jun, 2014 [facility] [address] [id number] [address] [place] [address] 14 Jun, 2014 [facility] [address] [id number] [address] [place] [address], [place] [address] Jun, [facility] [address] [id number] [address] [place] [address], [place] [address] Jun, [facility] [address] [id number] [address] [place] [address], [place] [address] Jun, [facility] [address] [id number] [address] [place] [address], [place] [address] Jun, [facility] [address] [id number] [address] [place] [address], [place] [address] Jun, [facility] [address] [id number] [address] [place] [address], [place] [address] Jun, [facility] [address] [id number] [address] [place] [address], [place] [address] May, [facility] [address] [id number] [address] [place] [address], [place] [address] May, [facility] [address] [id number] [address] [place] [address], [place] [address] May, [facility] [address] [id number] [address] [place] [address], [place] [address] May, 2013 [facility] [address] [id number] [address] [place] [address], [place] [address] May, 2013 [facility] [address] [id number] [address] [place] [address], [place] [address] 04 May, 2013 [facility] [address] [id number] [address] [place] [address], [place] [address] May, [facility] [address] [id number] [address] [place] [address], [place] [address] May, [facility] [address] [id number] [address] [place] [address], [place] [address] Apr, [facility] [address] [id number] [facility] [place] [address] Apr, [facility] [address] [id number] [facility] [place] [address] Apr, [facility] [address] [id number] [facility] [place] [address] Apr, [facility] [address] [id number] [facility] [place] [address] Apr, [facility] [address] [id number] [facility] [place] [address] Apr, [facility] [address] [id number] [address] [place] [address], [place] [address] Apr, [facility] [address] [id number] [address] [place] [address], [place] [address] Apr, [facility] [address] [id number] [address] [place] [address], [place] [address] Apr, [facility] [address] [id number] [address] [place] [address], [place] [address] Mar, [facility] [address] [id number] [address] [place] [address], [place] [address] Mar, [facility] [address] [id number] [address] [place] [address], [place] [address] Mar, [facility] [address] [id number] [address] [place] [address], [place] [address] Feb, [facility] [address] [id number] [address] [place] [address], [place] [address] Feb, [facility] [address] [id number] [address] [place] [address], [place] [address] Feb, [facility] [address] [id number] [address] [place] [address], [place] [address] Feb, [facility] [address] [id number] [address] [place] [address], [place] [address] Feb, [facility] [address] [id number] [facility] [place] [address] 17 Feb, 2014 [facility] [address] [id number] [facility] [place] [address] Feb, [facility] [address] [id number] [facility] [place] [address] Feb, [facility] [address] [id number] [address] [place] [address], [place] [address] Feb, [facility] [address] [id number] [address] [place] [address], [place] [address] Feb, [facility] [address] [id number] [address] [place] [address], [place] [address] Feb, [facility] [address] [id number] [address] [place] [address], [place] [address] Feb, [facility] [address] [id number] [address] [place] [address], [place] [address] Feb, [facility] [address] [id number] [address] [place] [address], [place] [address] Feb, [facility] [address] [id number] [address] [place] [address], [place] [address] Feb, [facility] [address] [id number] [address] [place] [address], [place] [address] Feb, [facility] [address] [id number] [address] [place] [address], [place] [address] January, [facility] [address] [id number] [address] [place] [address], [place] [address] January, [facility] [address] [id number] [address] [place] [address], [place] [address] January, [facility] [address] [id number] [address] [place] [address], [place] [address] January, [facility] [address] [id number] [address] [place] [address], [place] [address] January, [facility] [address] [id number] [facility] [place] [address] January, [facility] [address] [id number] [facility] [place] [address] January, [facility] [address] [id number] [address] [place] [address], [place] [address] January, [facility] [address] [id number] [address] [place] [address], [place] [address] January, [facility] [address] [id number] [address] [place] [address], [place] [address] January, [facility] [address] [id number] [address] [place] [address], [place] [address] January, [facility] [address] [id number] [address] [place] [address], [place] [address] January, [facility] [address] [id number] [address] [place] [address], [place] [address] January, [facility] [address] [id number] [address] [place] [address], [place] [address] January, [facility] [address] [id number] [address] [place] [address], [place] [address] January, [facility] [address] [id number] [address] [place] [address], [place] [address] January, [facility] [address] [id number] [address] [place] [address], [place] [address] January, [facility] [address] [id number] [address] [place] [address], [place] [address] January, [facility] [address] [id number] [address] [place] [address], [place] [address] January, [facility] [address] [id number] [address] [place] [address], [place] [address] January, [facility] [address] [id number] [facility] [place] [address] January, [facility] [address] [id number] [address] [place] [address], [place] [address] January, [facility] [address] [id number] [address] [place] [address], [place] [address] January, [facility] [address] [id number] [address] [place] [address], [place] [address] January, [facility] [address] [id number] [address] [place] [address], [place] [address] January, [facility] [address] [id number] [address] [place] [address], [place] [address] January, [facility] [address] [id number] [address] [place] [address], [place] [address] Dec, [facility] [address] [id number] [address] [place] [address], [place] [address] Dec, [facility] [address] [id number] [address] [place] [address], [place] [address] Dec, [facility] [address] [id number] [address] [place] [address], [place] [address] Dec, [facility] [address] [id number] [address] [place] [address], [place] [address] Dec, [facility] [address] [id number] [address] [place] [address], [place] [address] Dec, [facility] [address] [id number] [address] [place] [address], [place] [address] Dec, [facility] [address] [id number] [address] [place] [address], [place] [address] Dec, [facility] [address] [id number] [address] [place] [address], [place] [address] Dec, [facility] [address] [id number] [address] [place] [address], [place] [address] Dec, [facility] [address] [id number] [facility] [place] [address] Dec, [facility] [address] [id number] [address] [place] [address], [place] [address] Dec, [facility] [address] [id number] [address] [place] [address], [place] [address] Dec, [facility] [address] [id number] [address] [place] [address], [place] [address] Dec, [facility] [address] [id number] [address] [place] [address], [place] [address] Dec, [facility] [address] [id number] [address] [place] [address], [place] [address] Dec, [facility] [address] [id number] [address] [place] [address], [place] [address] Dec, [facility] [address] [id number] [address] [place] [address], [place] [address] Dec, [facility] [address] [id number] [address] [place] [address], [place] [address] Dec, [facility] [address] [id number] [address] [place] [address], [place] [address] Dec, [facility] [address] [id number] [address] [place] [address], [place] [address] Dec, [facility] [address] [id number] [address] [place] [address], [place] [address] Dec, [facility] [address] [id number] [address] [place] [address], [place] [address] Nov, [facility] [address] [id number] [address] [place] [address], [place] [address] Nov, [facility] [address] [id number] [address] [place] [address], [place] [address] Nov, [facility] [address] [id number] [facility] [place] [address] 25 Nov, 2013 [facility] [address] [id number] [facility] [place] [address] 24 Nov, 2013 [facility] [address] [id number] [facility] [place] [address] 24 Nov, 2013 [facility] [address] [id number] [address] [place] [address], [place] [address] 22 Nov, 2013 [facility] [address] [id number] [address] [place] [address], [place] [address] 22 Nov, 2013 [facility] [address] [id number] [address] [place] [address], [place] [address] 18 Nov, 2013 [facility] [address] [id number] [address] [place] [address], [place] [address] 18 Nov, 2013 [facility] [address] [id number] [address] [place] [address], [place] [address] 18 Nov, 2013 [facility] [address] [id number] [address] [place] [address], [place] [address] 18 Nov, 2013 [facility] [address] [id number] [address] [place] [address], [place] [address] 14 Nov, 2013 [facility] [address] [id number] [address] [place] [address], [place] [address] 14 Nov, 2013 [facility] [address] [id number] [address] [place] [address], [place] [address] 06 Nov, 2013 [facility] [address] [id number] [address] [place] [address], [place] [address] Nov, [facility] [address] [id number] [address] [place] [address], [place] [address] Oct, [facility] [address] [id number] [address] [place] [address], [place] [address] Oct, [facility] [address] [id number] [address] [place] [address], [place] [address] Oct, [facility] [address] [id number] [facility] [place] [address] Oct, [facility] [address] [id number] [address] [place] [address], [place] [address] Oct, [facility] [address] [id number] [address] [place] [address], [place] [address] Oct, [facility] [address] [id number] [address] [place] [address], [place] [address] Oct, [facility] [address] [id number] [address] [place] [address], [place] [address] Oct, [facility] [address] [id number] [address] [place] [address], [place] [address] Oct, [facility] [address] [id number] [address] [place] [address], [place] [address] Oct, [facility] [address] [id number] [address] [place] [address], [place] [address] Oct, [facility] [address] [id number] [address] [place] [address], [place] [address] Oct, [facility] [address] [id number] [address] [place] [address], [place] [address] Oct, [facility] [address] [id number] [address] [place] [address], [place] [address] Oct, [facility] [address] [id number] [address] [place] [address], [place] [address] Oct, [facility] [address] [id number] [address] [place] [address], [place] [address] Sep, [facility] [address] [id number] [address] [place] [address], [place] [address] Sep, [facility] [address] [id number] [address] [place] [address], [place] [address] Sep, [facility] [address] [id number] [address] [place] [address], [place] [address] 15 Sep, 2013 [facility] [address] [id number] [address] [place] [address], [place] [address] Sep, [facility] [address] [id number] [address] [place] [address], [place] [address] Sep, [facility] [address] [id number] [address] [place] [address], [place] [address] Sep, [facility] [address] [id number] [address] [place] [address], [place] [address] Sep, [facility] [address] [id number] [address] [place] [address], [place] [address] Sep, [facility] [address] [id number] [address] [place] [address], [place] [address] Sep, [facility] [address] [id number] [address] [place] [address], [place] [address] Sep, [facility] [address] [id number] [address] [place] [address], [place] [address] Sep, [facility] [address] [id number] [address] [place] [address], [place] [address] Sep, [facility] [address] [id number] [address] [place] [address], [place] [address] Aug, [facility] [address] [id number] [address] [place] [address], [place] [address] Aug, [facility] [address] [id number] [address] [place] [address], [place] [address] Aug, [facility] [address] [id number] [address] [place] [address], [place] [address] Aug, [facility] [address] [id number] [address] [place] [address], [place] [address] 17 Aug, 2013 [facility] [address] [id number] [address] [place] [address], [place] [address] 17 Aug, 2013 [facility] [address] [id number] [address] [place] [address], [place] [address] 16 Aug, 2013 [facility] [address] [id number] [address] [place] [address], [place] [address] 16 Aug, 2013 [facility] [address] [id number] [address] [place] [address], [place] [address] 12 Aug, 2013 [facility] [address] [id number] [address] [place] [address], [place] [address] 12 Aug, 2013 [facility] [address] [id number] [address] [place] [address], [place] [address] 10 Aug, 2013 [facility] [address] [id number] [address] [place] [address], [place] [address] 10 Aug, 2013 [facility] [address] [id number] [address] [place] [address], [place] [address] 02 Aug, 2013 [facility] [address] [id number] [address] [place] [address], [place] [address] 02 Aug, 2013 [facility] [address] [id number] [address] [place] [address], [place] [address] 19 Jul, 2013 [facility] [address] [id number] [address] [place] [address], [place] [address] 19 Jul, 2013 [facility] [address] [id number] [address] [place] [address], [place] [address] 18 Jul, 2013 [facility] [address] [id number] [address] [place] [address], [place] [address] 18 Jul, 2013 [facility] [address] [id number] [address] [place] [address], [place] [address] 14 Jul, 2013 [facility] [address] [id number] [address] [place] [address], [place] [address] 14 Jul, 2013 [facility] [address] [id number] [address] [place] [address], [place] [address] 14 Jul, 2013 [facility] [address] [id number] [address] [place] [address], [place] [address] 14 Jul, 2013 [facility] [address] [id number] [address] [place] [address], [place] [address] 07 Jul, 2012 [facility] [address] [id number] [address] [place] [address], [place] [address] 07 Jul, 2012 [facility] [address] [id number] [address] [place] [address], [place] [address] 06 Jul, 2012 [facility] [address] [id number] [address] [place] [address], [place] [address] 06 Jul, 2012 [facility] [address] [id number] [address] [place] [address], [place] [address] 05 Jul, 2013 [facility] [address] [id number] [address] [place] [address], [place] [address] 05 Jul, 2013 [facility] [address] [id number] [address] [place] [address], [place] [address] Jun, [facility] [address] [id number] [address] [place] [address], [place] [address] 23 Jun, 2013 [facility] [address] [id number] [address] [place] [address], [place] [address] 15 Jun, 2013 [facility] [address] [id number] [address] [place] [address], [place] [address] 15 Jun, 2013 [facility] [address] [id number] [address] [place] [address], [place] [address] 14 Jun, 2013 [facility] [address] [id number] [address] [place] [address], [place] [address] 24 May, 2012 [facility] [address] [id number] [address] [place] [address], [place] [address] 20 May, 2013 [facility] [address] [id number] [address] [place] [address], [place] [address] 20 May, 2012 [facility] [address] [id number] [address] [place] [address], [place] [address] 20 May, 2012 [facility] [address] [id number] [address] [place] [address], [place] [address] 19 May, 2012 [facility] [address] [id number] [address] [place] [address], [place] [address] 13 May, 2012 [facility] [address] [id number] [address] [place] [address], [place] [address] 12 May, 2012 [facility] [address] [id number] [address] [place] [address], [place] [address] 12 May, 2012 [facility] [address] [id number] [address] [place] [address], [place] [address] 11 May, 2012 [facility] [address] [id number] [address] [place] [address], [place] [address] 11 May, 2012 [facility] [address] [id number] [address] [place] [address], [place] [address] 11 May, 2012 [facility] [address] [id number] [address] [place] [address], [place] [address] 09 May, 2012 [facility] [address] [id number] [address] [place] [address], [place] [address] 05 May, 2012 [facility] [address] [id number] [address] [place] [address], [place] [address] [address], [address] [facility] [address] [id number] [address] [place] [address], [place] [address] 03 May, 2012 [facility] [address] [id number] [address] [place] [address], [place] [address] Apr, 2012 [facility] [address] [id number] [address] [place] [address], [place] [address] Apr, [facility] [address] [id number] [address] [place] [address], [place] [address] Apr, 2012 [facility] [address] [id number] [address] [place] [address], [place] [address] Apr, 2012 [facility] [address] [id number] [address] [place] [address], [place] [address] Apr, [facility] [address] [id number] [address] [place] [address], [place] [address] Apr, [facility] [address] [id number] [address] [place] [address], [place] [address] Apr, [facility] [address] [id number] [address] [place] [address], [place] [address] Apr, [facility] [address] [id number] [address] [place] [address], [place] [address] Apr, [facility] [address] [id number] [address] [place] [address], [place] [address] Mar, [facility] [address] [id number] [address] [place] [address], [place] [address] Mar, [facility] [address] [id number] [address] [place] [address], [place] [address] Mar, [facility] [address] [id number] [address] [place] [address], [place] [address] Mar, [facility] [address] [id number] [address] [place] [address], [place] [address] Mar, [facility] [address] [id number] [address] [place] [address], [place] [address] Mar, [facility] [address] [id number] [address] [place] [address], [place] [address] Mar, [facility] [address] [id number] [address] [place] [address], [place] [address] Mar, [facility] [address] [id number] [address] [place] [address], [place] [address] Mar, [facility] [address] [id number] [address] [place] [address], [place] [address] Mar, [facility] [address] [id number] [address] [place] [address], [place] [address] Mar, [facility] [address] [id number] [address] [place] [address], [place] [address] Feb, [facility] [address] [id number] [address] [place] [address], [place] [address] Feb, [facility] [address] [id number] [address] [place] [address], [place] [address] Feb, [facility] [address] [id number] [address] [place] [address], [place] [address] Feb, [facility] [address] [id number] [address] [place] [address], [place] [address] Feb, [facility] [address] [id number] [address] [place] [address], [place] [address] Feb, [facility] [address] [id number] [address] [place] [address], [place] [address] Feb, [facility] [address] [id number] [address] [place] [address], [place] [address] Feb, [facility] [address] [id number] [address] [place] [address], [place] [address] Feb, [facility] [address] [id number] [address] [place] [address], [place] [address] January, [facility] [address] [id number] [address] [place] [address], [place] [address] January, [facility] [address] [id number] [address] [place] [address], [place] [address] January, [facility] [address] [id number] [address] [place] [address], [place] [address] January, [facility] [address] [id number] [address] [place] [address], [place] [address] January, [facility] [address] [id number] [address] [place] [address], [place] [address] January, [facility] [address] [id number] [address] [place] [address], [place] [address] January, [facility] [address] [id number] [address] [place] [address], [place] [address] January, [facility] [address] [id number] [address] [place] [address], [place] [address] January, [facility] [address] [id number] [address] [place] [address], [place] [address] January, [facility] [address] [id number] [address] [place] [address], [place] [address] January, [facility] [address] [id number] [address] [place] [address], [place] [address] January, [facility] [address] [id number] [address] [place] [address], [place] [address] January, [facility] [address] [id number] [address] [place] [address], [place] [address] January, [facility] [address] [id number] [address] [place] [address], [place] [address] January, [facility] [address] [id number] [address] [place] [address], [place] [address] January, [facility] [address] [id number] [address] [place] [address], [place] [address] January, [facility] [address] [id number] [address] [place] [address], [place] [address] January, [facility] [address] [id number] [address] [place] [address], [place] [address] January, [facility] [address] [id number] [address] [place] [address], [place] [address] January, [facility] [address] [id number] [address] [place] [address], [place] [address] January, [facility] [address] [id number] [address] [place] [address], [place] [address] January, [facility] [address] [id number] [address] [place] [address], [place] [address] January, [facility] [address] [id number] [address] [place] [address], [place] [address] Dec, [facility] [address] [id number] [address] [place] [address], [place] [address] Dec, [facility] [address] [id number] [address] [place] [address], [place] [address] Dec, [facility] [address] [id number] [address] [place] [address], [place] [address] Dec, [facility] [address] [id number] [address] [place] [address], [place] [address] Dec, [facility] [address] [id number] [address] [place] [address], [place] [address] Nov, [facility] [address] [id number] [address] [place] [address], [place] [address] Oct, [facility] [address] [id number] [address] [place] [address], [place] [address] Oct, [facility] [address] [id number] [address] [place] [address], [place] [address] Oct, [facility] [address] [id number] [address] [place] [address], [place] [address] Oct, [facility] [address] [id number] [address] [place] [address], [place] [address] Oct, [facility] [address] [id number] [address] [place] [address], [place] [address] Sep, [facility] [address] [id number] [address] [place] [address], [place] [address] Sep, [facility] [address] [id number] [address] [place] [address], [place] [address] Sep, [facility] [address] [id number] [address] [place] [address], [place] [address] Aug, [facility] [address] [id number] [address] [place] [address], [place] [address] Aug, [facility] [address] [id number] [address] [place] [address], [place] [address] Aug, [facility] [address] [id number] [address] [place] [address], [place] [address] Aug, [facility] [address] [id number] [address] [place] [address], [place] [address] Jul, [facility] [address] [id number] [address] [place] [address], [place] [address] Jul, [facility] [address] [id number] [address] [place] [address], [place] [address] Jul, [facility] [address] [id number] [address] [place] [address], [place] [address] Jul, [facility] [address] [id number] [address] [place] [address], [place] [address] Jul, [facility] [address] [id number] [address] [place] [address], [place] [address] Jul, [facility] [address] [id number] [address] [place] [id number] Jun, [facility] [address] [id number] [address] [place] [id number] Jun, [facility] [address] [address] [id number] [address] [place] [id number] Jun, [facility] [address] [id number] [address] [place] [address], [place] [address] Jun, [facility] [address] [id number] [address] [place] [id number] Jun, [facility] [address] [id number] [address] [place] [id number] Jun, [facility] [address] [id number] [address] [place] [id number] Jun, [facility] [address] [id number] [address] [place] [address], [place] [address] Jun, [facility] [address] [id number] [address] [place] [address], [place] [address] Jun, [facility] [address] [id number] [address] [place] [address], [place] [address] Jun, [facility] [address] [id number] [address] [place] [address], [place] [address] 17 May, 2012 [facility] [address] [id number] [address] [place] [address], [place] [address] 08 May, 2012 [facility] [address] [id number] [address] [place] [address], [place] [address] 06 May, 2012 [facility] [address] [id number] [address] [place] [address], [place] [address] 30 Apr, 2012 [facility] [address] [id number] [address] [place] [address], [place] [address] Apr, [facility] [address] [id number] [address] [place] [address], [place] [address] Apr, [facility] [address] [id number] [address] [place] [address], [place] [address] Apr, [facility] [address] [id number] [address] [place] [address], [place] [address] Apr, [facility] [address] [id number] [address] [place] [address], [place] [address] Apr, [facility] [address] [id number] [address] [place] [address], [place] [address] Apr, [facility] [address] [id number] [address] [place] [address], [place] [address] Apr, [facility] [address] [id number] [address] [place] [address], [place] [address] Apr, [facility] [address] [id number] [address] [place] [address], [place] [address] Mar, [facility] [address] [id number] [address] [place] [address], [place] [address] Mar, [facility] [address] [id number] [address] [place] [address], [place] [address] Mar, [facility] [address] [id number] [address] [place] [address], [place] [address] Mar, [facility] [address] [id number] [address] [place] [address], [place] [address] Feb, [facility] [address] [id number] [address] [place] [address], [place] [address] Feb, [facility] [address] [id number] [address] [place] [address], [place] [address] Feb, [facility] [address] [id number] [address] [place] [address], [place] [address] January, [facility] [address] [id number] [address] [place] [address], [place] [address] January, [facility] [address] [id number] [address] [place] [address], [place] [address] January, [facility] [address] [id number] [address] [place] [address], [place] [address] January, [facility] [address] [id number] [address] [place] [address], [place] [address] January, [facility] [address] [id number] [address] [place] [address], [place] [address] Dec, [facility] [address] [id number] [address] [place] [address], [place] [address] Dec, [facility] [address] [id number] [address] [place] [address], [place] [address] Dec, [facility] [address] [id number] [address] [place] [address], [place] [address] Oct, [facility] [address] [id number] [address] [place] [address], [place] [address] Oct, [facility] [address] [id number] [address] [place] [address], [place] [address] Oct, [facility] [address] [id number] [address] [place] [address], [place] [address] Sep, [facility] [address] [id number] [address] [place] [address], [place] [address] Sep, [facility] [address] [id number] [address] [place] [address], [place] [address] Aug, [facility] [address] [id number] [address] [place] [address], [place] [address] Jul, [facility] [address] [id number] [address] [place] [address], [place] [address] Jul, [facility] [address] [id number] [address] [place] [address], [place] [address] Mar, [facility] [address] [id number] [address] [place] [address], [place] [address] Aug, [facility] [address] [id number] [address] [place] [address], [place] [address] Jul, [facility] [address] [id number] [address] [place] [id number] Jul, [facility] [address] [id number] [address] [place] [id number] Jul, [facility] [address] [id number] [address] [place] [address], [place] [address] Jul, [facility] [address] [id number] [address] [place] [id number] 14 Jun, 2010 [facility] [address] [id number] [address] [place] [address], [place] [address] Jun, [facility] [address] [id number] [address] [place] [id number] Apr, [facility] [address] [id number] [address] [place] [id number] Aug, [facility] [address] [id number] [address] [place] [id number] Jul, [facility] [address] [id number] [address] [place] [id number] Jul, [facility] [address] [id number] [address] [place] [id number] Jul, [facility] [address] [id number] [address] [place] [id number] Jun, [facility] [address] [id number] [address] [place] [id number] May, [facility] [address] [id number] [address] [place] [id number] 14 Dec, 2008 [facility] [address] [id number] [address] [place] [id number] Nov, [facility] [address] [id number] [address] [place] [id number] 10 Oct, 2008 [facility] [address] [id number] [address] [place] [id number] Aug, [facility] [address] [id number] [address] [place] [id number] Aug, [facility] [address] [id number] [address] [place] [id number] Jun, IMMUNIZATIONS No Known Immunizations SOCIAL HISTORY [...] x 3 day s 04/2012 Hospitalization History [facility] [place]- Right wrist injury 03/29/2018
--- OUTSIDE RECORDS SUMMARY | 2020-04-09 00:15 | XMS REPORT ---
Author Author Kateryna UMANZOR Organization [facility] Address [address] [place] [address] Care Team Providers Care Meat Curer Name Role Phone ZENA UMANZOR Unavailable PROBLEMS Type Condition ICD9-CM Code BDM25-SQ Code Onset Dates Condition S tatus SNOMED Code Problem Irregular menses N92.6 Active 801 96185 Problem Migraine with aura and without status migrainosu s, not intractable G43.109 Active 7947298 Problem Uncontrolled type 2 diabetes mellitus with hyperglycemia E11.65 Active 617555649 Problem Morbid obesity due to excess calories E66.01 Active 902444907 Problem RLS (restless legs syndrome) G25.81 A ctive 17833845 Problem Morbid obesity E66.01 Active 47471 6002 ALLERGIES No Information ENCOUNTERS Encounter Location Date Diagnosis [facility] [address] [facility] [id number] [address] [place] [id number] Dec, Uncontrolled type 2 diabetes mellitus with hyperglycemia E11.65 [facility] [address] [facility] [id number] [address] [place] [phone] Dec, [facility] [address] [facility] [id number] [address] [place] [id number] Dec, [facility] [address] [facility] [id number] [address] [place] [phone] Dec, [facility] [address] [facility] [id number] [address] [place] [phone] Nov, [facility] [address] [facility] [id number] [address] [place] [phone] Nov, [facility] [address] [facility] [id number] [address] [place] [phone] Nov, [facility] [address] [facility] [id number] [address] [place] [id number] 02 Nov, 2019 RLS (restless legs syndrome) G25.81 [facility] [address] [id number] [address] [place] [id number] 15 Oct, 2019 [facility] [address] [id number] [address] [place] [id number] 09 Oct, 2019 Influenza J11.1 [facility] [address] [id number] [address] [place] [phone] 16 Sep, 2019 [facility] [address] [id number] [address] [place] [phone] 14 Sep, 2019 [facility] [address] [id number] [address] [place] [phone] 14 Sep, 2019 [facility] [address] [id number] [address] [place] [id number] 13 Sep, 2019 [facility] [address] [facility] [id number] [address] [place] [id number] 10 Sep, 2019 Pneumonia of left lower lobe due to infectious organism J18.9 and Migraine with aura and without status migrainosus, not intractable G43.109 [facility] [address] [id number] [address] [place] [id number] 10 Sep, 2019 [facility] [address] [id number] [address] [place] [phone] 10 Sep, 2019 [facility] [address] [id number] [address] [place] [id number] 08 Sep, 2019 [facility] [address] [id number] [address] [place] [id number] 08 Sep, 2019 [facility] [address] [facility] [id number] [address] [place] [id number] 08 Sep, 2019 Pneumonia of left lower lobe due to infectious organism J18.9 and Migraine with aura and without status migrainosus, not intractable G43.109 [facility] [address] [id number] [address] [place] [id number] Aug, Irregular menses N92.6 ; Wel l woman exam Z01.419 ; Pelvic cramping R10.2 and Left breast lump N63.20 [facility] [address] [id number] [address] [place] [address] Aug, [facility] [address] [id number] [address] [place] [address] Aug, Well woman exam Z01.419 ; Le ft breast lump N63.20 ; Irregular menses N92.6 ; Encounter for immunization Z23 ; Pelvic cramping R10.2 and Screening for cervical cancer Z12.4 [facility] [address] [id number] [address] [place] [phone] Aug, [facility] [address] [id number] [address] [place] [phone] Aug, [facility] [address] [id number] [address] [place] [id number] Aug, [facility] [address] [id number] [address] [place] [id number] Jul, [facility] [address] [id number] [address] [place] [phone] Jun, [facility] [address] [id number] [address] [place] [id number] Jun, [facility] [address] [id number] [address] [place] [phone] Jun, [facility] [address] [id number] [address] [place] [id number] Jun, BMI 50.0-59.9, adult Z68.43 [facility] [address] [id number] [address] [place] [id number] Jun, [facility] [address] [id number] [address] [place] [address] May, Acute non-recurrent sinusiti s, unspecified location J01.90 ; Diarrhea, unspecified R19.7 ; Vomiting, unspecified R11.10 and Morbid obesity E66.01 [place] [address] [address] Apr, [place] [address] [address] [place] [id number] [place] [phone] Apr, Anemia due to other cause, n ot classified D64.89 and D-dimer, elevated R79.89 [place] [address] [address] [place] [id number] [place] [address] Apr, [place] [address] [address] Apr, [place] [address] [address] Mar, Anemia due to other cause, n ot classified D64.89 and D-dimer, elevated R79.89 [place] [address] [address] Mar, Leg edema, right R60.0 ; Hig h risk medication use Z79.899 and Morbid obesity E66.01 [place] [address] [address] Mar, BMI 50.0-59.9, adult Z68.43 [place] [address] [address] Mar, [place] [address] [address] January, Uncontrolled type 2 diabetes mellitus with hyperglycemia E11.65 ; RLS (restless legs syndrome) G25.81 and Morbid obesity E66.01 [place] [address] [address] [place] [id number] [address] [place] [id number] Oct, Lipoma of right lower extrem ity D17.23 [place] [address] [address] [place] [id number] [address] [place] [address] Oct, Lipoma of right lower extrem ity D17.23 [facility] [address] [id number] [address] [place] [phone] Sep, [facility] [address] [id number] [address] [place] [id number] Sep, [facility] [address] [id number] [address] [place] [phone] Sep, [facility] [address] [id number] [address] [place] [phone] Sep, [facility] [address] [id number] [address] [place] [id number] Sep, [facility] [address] [facility] [id number] [address] [place] [id number] Aug, Uncontrolled type 2 diabetes mellitus with hyperglycemia E11.65 ; Morbid obesity due to excess calories E66.01 ; Lipoma of torso D17.1 and BMI 50.0-59.9, adult Z68.43 [facility] [address] [facility] [id number] [address] [place] [phone] Jun, Encounter for immunization Z 23 [facility] [address] [facility] [id number] [address] [place] [phone] Jul, [facility] [address] [facility] [id number] [address] [place] [phone] Jun, Encounter for immunization Z 23 [facility] [address] [id number] [address] [place] [id number] 30 May, 2016 [facility] [address] [facility] [id number] [address] [place] [phone] Jun, Encounter for immunization Z 23 [facility] [address] [id number] [address] [place] [phone] 29 May, 2015 [facility] [address] [facility] [id number] [address] [place] [phone] May, [facility] [address] [id number] [address] [place] [address], [place] [address] Apr, [facility] [address] [id number] [address] [place] [address], [place] [address] Feb, [facility] [address] [id number] [address] [place] [address], [place] [address] Feb, [facility] [address] [id number] [address] [place] [address], [place] [address] Feb, [facility] [address] [id number] [address] [place] [address], [place] [address] January, [facility] [address] [id number] [address] [place] [address], [place] [address] January, [facility] [address] [id number] [address] [place] [address], [place] [address] Dec, [facility] [address] [id number] [address] [place] [address], [place] [address] Dec, [facility] [address] [id number] [address] [place] [address], [place] [address] Nov, [facility] [address] [id number] [address] [place] [phone] Nov, [facility] [address] [id number] [address] [place] [address], [place] [address] Nov, [facility] [address] [id number] [address] [place] [phone] Nov, [facility] [address] [id number] [address] [place] [address], [place] [address] Nov, [facility] [address] [id number] [address] [place] [address], [place] [address] Nov, [facility] [address] [id number] [address] [place] [id number] Nov, [facility] [address] [id number] [address] [place] [phone] 18 Oct, 2014 [facility] [address] [id number] [address] [place] [address], [place] [address] Oct, [facility] [address] [id number] [address] [place] [address], [place] [address] Oct, [facility] [address] [id number] [address] [place] [address], [place] [address] Oct, [facility] [address] [id number] [address] [place] [address], [place] [address] Oct, [facility] [address] [id number] [address] [place] [address], [place] [address] Sep, [facility] [address] [id number] [address] [place] [address], [place] [address] Sep, [facility] [address] [id number] [address] [place] [address], [place] [address] Sep, [facility] [address] [id number] [address] [place] [address], [place] [address] Sep, [facility] [address] [id number] [address] [place] [address], [place] [address] Sep, [facility] [address] [id number] [address] [place] [address], [place] [address] Sep, [facility] [address] [id number] [address] [place] [address], [place] [address] Sep, [facility] [address] [id number] [address] [place] [address], [place] [address] Sep, [facility] [address] [id number] [address] [place] [address], [place] [address] Sep, [facility] [address] [id number] [address] [place] [address], [place] [address] Sep, [facility] [address] [id number] [address] [place] [address], [place] [address] Aug, [facility] [address] [id number] [address] [place] [address], [place] [address] Aug, [facility] [address] [id number] [address] [place] [address], [place] [address] Aug, [facility] [address] [id number] [address] [place] [address], [place] [address] Aug, [facility] [address] [id number] [address] [place] [address], [place] [address] Aug, [facility] [address] [id number] [address] [place] [address], [place] [address] Aug, [facility] [address] [id number] [address] [place] [address], [place] [address] Aug, [facility] [address] [id number] [address] [place] [address], [place] [address] Aug, [facility] [address] [id number] [address] [place] [address], [place] [address] Aug, [facility] [address] [id number] [address] [place] [address], [place] [address] Aug, [facility] [address] [id number] [address] [place] [address], [place] [address] Aug, [facility] [address] [id number] [address] [place] [address], [place] [address] Aug, [facility] [address] [id number] [address] [place] [address], [place] [address] Aug, [facility] [address] [id number] [address] [place] [address], [place] [address] Aug, [facility] [address] [id number] [address] [place] [address], [place] [address] Aug, [facility] [address] [id number] [address] [place] [address], [place] [address] Aug, [facility] [address] [id number] [address] [place] [address], [place] [address] 16 Aug, 2014 [facility] [address] [id number] [address] [place] [address], [place] [address] 16 Aug, 2014 [facility] [address] [id number] [address] [place] [address], [place] [address] Aug, [facility] [address] [id number] [address] [place] [address], [place] [address] Aug, [facility] [address] [id number] [address] [place] [address], [place] [address] Aug, [facility] [address] [id number] [address] [place] [address], [place] [address] Aug, [facility] [address] [id number] [address] [place] [address], [place] [address] Aug, [facility] [address] [id number] [address] [place] [address], [place] [address] Aug, [facility] [address] [id number] [address] [place] [address], [place] [address] Jul, [facility] [address] [id number] [address] [place] [address], [place] [address] Jul, [facility] [address] [id number] [address] [place] [address], [place] [address] Jun, [facility] [address] [id number] [address] [place] [address], [place] [address] 27 Jun, 2014 [facility] [address] [id number] [address] [place] [address], [place] [address] 17 Jun, 2014 [facility] [address] [id number] [address] [place] [address], [place] [address] 17 Jun, 2014 [facility] [address] [id number] [address] [place] [address], [place] [address] 15 Jun, 2014 [facility] [address] [id number] [address] [place] [address], [place] [address] 15 Jun, 2014 [facility] [address] [id number] [address] [place] [address], [place] [address] 14 Jun, 2014 [facility] [address] [id number] [address] [place] [address], [place] [address] 14 Jun, 2014 [facility] [address] [id number] [address] [place] [address], [place] [address] 13 Jun, 2014 [facility] [address] [id number] [address] [place] [address], [place] [address] 13 Jun, 2014 [facility] [address] [id number] [address] [place] [address], [place] [address] 13 Jun, 2014 [facility] [address] [id number] [address] [place] [address], [place] [address] Jun, [facility] [address] [id number] [address] [place] [address], [place] [address] 06 Jun, 2014 [facility] [address] [id number] [address] [place] [address], [place] [address] Jun, [facility] [address] [id number] [address] [place] [address], [place] [address] 26 May, 2013 [facility] [address] [id number] [address] [place] [address], [place] [address] 26 May, 2013 [facility] [address] [id number] [address] [place] [address], [place] [address] 22 May, 2013 [facility] [address] [id number] [address] [place] [address], [place] [address] 22 May, 2013 [facility] [address] [id number] [address] [place] [address], [place] [address] 04 May, 2013 [facility] [address] [id number] [address] [place] [address], [place] [address] 04 May, 2013 [facility] [address] [id number] [address] [place] [address], [place] [address] 02 May, 2013 [facility] [address] [id number] [address] [place] [address], [place] [address] May, [facility] [address] [id number] [address] [place] [address], [place] [address] Apr, [facility] [address] [id number] [address] [place] [address], [place] [address] Apr, [facility] [address] [id number] [address] [place] [address], [place] [address] Apr, [facility] [address] [id number] [address] [place] [address], [place] [address] Apr, [facility] [address] [id number] [address] [place] [address], [place] [address] Apr, [facility] [address] [id number] [address] [place] [address], [place] [address] Apr, [facility] [address] [id number] [address] [place] [address], [place] [address] Apr, [facility] [address] [id number] [address] [place] [address], [place] [address] Apr, [facility] [address] [id number] [address] [place] [address], [place] [address] Apr, [facility] [address] [id number] [address] [place] [address], [place] [address] Mar, [facility] [address] [id number] [address] [place] [address], [place] [address] Mar, [facility] [address] [id number] [address] [place] [address], [place] [address] Mar, [facility] [address] [id number] [address] [place] [address], [place] [address] Feb, [facility] [address] [id number] [address] [place] [address], [place] [address] Feb, [facility] [address] [id number] [address] [place] [address], [place] [address] Feb, [facility] [address] [id number] [address] [place] [address], [place] [address] Feb, [facility] [address] [id number] [facility] [place] [address] Feb, [facility] [address] [id number] [facility] [place] [address] Feb, [facility] [address] [id number] [address] [place] [address], [place] [address] Feb, [facility] [address] [id number] [address] [place] [address], [place] [address] Feb, [facility] [address] [id number] [address] [place] [address], [place] [address] Feb, [facility] [address] [id number] [address] [place] [address], [place] [address] Feb, [facility] [address] [id number] [address] [place] [address], [place] [address] Feb, [facility] [address] [id number] [address] [place] [address], [place] [address] Feb, [facility] [address] [id number] [address] [place] [address], [place] [address] Feb, [facility] [address] [id number] [address] [place] [address], [place] [address] Feb, [facility] [address] [id number] [address] [place] [address], [place] [address] Feb, [facility] [address] [id number] [address] [place] [address], [place] [address] Feb, [facility] [address] [id number] [address] [place] [address], [place] [address] January, [facility] [address] [id number] [address] [place] [address], [place] [address] January, [facility] [address] [id number] [address] [place] [address], [place] [address] January, [facility] [address] [id number] [facility] [place] [address] January, [facility] [address] [id number] [facility] [place] [address] January, [facility] [address] [id number] [facility] [place] [address] January, [facility] [address] [id number] [facility] [place] [address] January, [facility] [address] [id number] [facility] [place] [address] January, [facility] [address] [id number] [address] [place] [address], [place] [address] January, [facility] [address] [id number] [address] [place] [address], [place] [address] January, [facility] [address] [id number] [address] [place] [address], [place] [address] January, [facility] [address] [id number] [address] [place] [address], [place] [address] January, [facility] [address] [id number] [address] [place] [address], [place] [address] January, [facility] [address] [id number] [address] [place] [address], [place] [address] January, [facility] [address] [id number] [address] [place] [address], [place] [address] January, [facility] [address] [id number] [address] [place] [address], [place] [address] January, [facility] [address] [id number] [address] [place] [address], [place] [address] January, [facility] [address] [id number] [address] [place] [address], [place] [address] January, [facility] [address] [id number] [address] [place] [address], [place] [address] January, [facility] [address] [id number] [facility] [place] [address] January, [facility] [address] [id number] [address] [place] [address], [place] [address] January, [facility] [address] [id number] [address] [place] [address], [place] [address] January, [facility] [address] [id number] [address] [place] [address], [place] [address] January, [facility] [address] [id number] [address] [place] [address], [place] [address] January, [facility] [address] [id number] [address] [place] [address], [place] [address] January, [facility] [address] [id number] [address] [place] [address], [place] [address] January, [facility] [address] [id number] [address] [place] [address], [place] [address] Dec, [facility] [address] [id number] [address] [place] [address], [place] [address] Dec, [facility] [address] [id number] [address] [place] [address], [place] [address] Dec, [facility] [address] [id number] [address] [place] [address], [place] [address] Dec, [facility] [address] [id number] [address] [place] [address], [place] [address] Dec, [facility] [address] [id number] [address] [place] [address], [place] [address] Dec, [facility] [address] [id number] [address] [place] [address], [place] [address] Dec, [facility] [address] [id number] [address] [place] [address], [place] [address] Dec, [facility] [address] [id number] [facility] [place] [address] Dec, [facility] [address] [id number] [address] [place] [address], [place] [address] Dec, [facility] [address] [id number] [address] [place] [address], [place] [address] Dec, [facility] [address] [id number] [address] [place] [address], [place] [address] Dec, [facility] [address] [id number] [address] [place] [address], [place] [address] Dec, [facility] [address] [id number] [address] [place] [address], [place] [address] Dec, [facility] [address] [id number] [address] [place] [address], [place] [address] Dec, [facility] [address] [id number] [address] [place] [address], [place] [address] Dec, [facility] [address] [id number] [address] [place] [address], [place] [address] Dec, [facility] [address] [id number] [address] [place] [address], [place] [address] Dec, [facility] [address] [id number] [address] [place] [address], [place] [address] Dec, [facility] [address] [id number] [address] [place] [address], [place] [address] Dec, [facility] [address] [id number] [address] [place] [address], [place] [address] Dec, [facility] [address] [id number] [address] [place] [address], [place] [address] Dec, [facility] [address] [id number] [address] [place] [address], [place] [address] Nov, [facility] [address] [id number] [address] [place] [address], [place] [address] Nov, [facility] [address] [id number] [facility] [place] [address] Nov, [facility] [address] [id number] [facility] [place] [address] Nov, [facility] [address] [id number] [facility] [place] [address] Nov, [facility] [address] [id number] [address] [place] [address], [place] [address] Nov, [facility] [address] [id number] [facility] [place] [address] Nov, [facility] [address] [id number] [address] [place] [address], [place] [address] Nov, [facility] [address] [id number] [address] [place] [address], [place] [address] Nov, [facility] [address] [id number] [address] [place] [address], [place] [address] 18 Nov, 2013 [facility] [address] [id number] [address] [place] [address], [place] [address] 18 Nov, 2013 [facility] [address] [id number] [address] [place] [address], [place] [address] 18 Nov, 2013 [facility] [address] [id number] [address] [place] [address], [place] [address] 14 Nov, 2013 [facility] [address] [id number] [address] [place] [address], [place] [address] 14 Nov, 2013 [facility] [address] [id number] [address] [place] [address], [place] [address] 06 Nov, 2013 [facility] [address] [id number] [address] [place] [address], [place] [address] 06 Nov, 2013 [facility] [address] [id number] [address] [place] [address], [place] [address] 28 Oct, 2013 [facility] [address] [id number] [address] [place] [address], [place] [address] Oct, [facility] [address] [id number] [address] [place] [address], [place] [address] Oct, [facility] [address] [id number] [address] [place] [address], [place] [address] Oct, [facility] [address] [id number] [address] [place] [address], [place] [address] Oct, [facility] [address] [id number] [address] [place] [address], [place] [address] Oct, [facility] [address] [id number] [address] [place] [address], [place] [address] Oct, [facility] [address] [id number] [address] [place] [address], [place] [address] Oct, [facility] [address] [id number] [address] [place] [address], [place] [address] Oct, [facility] [address] [id number] [address] [place] [address], [place] [address] Oct, [facility] [address] [id number] [address] [place] [address], [place] [address] Oct, [facility] [address] [id number] [address] [place] [address], [place] [address] Oct, [facility] [address] [id number] [address] [place] [address], [place] [address] Oct, [facility] [address] [id number] [address] [place] [address], [place] [address] Oct, [facility] [address] [id number] [address] [place] [address], [place] [address] Oct, [facility] [address] [id number] [address] [place] [address], [place] [address] Sep, [facility] [address] [id number] [address] [place] [address], [place] [address] 17 Sep, 2013 [facility] [address] [id number] [facility] [place] [address] 15 Sep, 2013 [facility] [address] [id number] [address] [place] [address], [place] [address] 15 Sep, 2013 [facility] [address] [id number] [address] [place] [address], [place] [address] Sep, [facility] [address] [id number] [address] [place] [address], [place] [address] Sep, [facility] [address] [id number] [address] [place] [address], [place] [address] Sep, [facility] [address] [id number] [address] [place] [address], [place] [address] Sep, [facility] [address] [id number] [address] [place] [address], [place] [address] Sep, [facility] [address] [id number] [address] [place] [address], [place] [address] Sep, [facility] [address] [id number] [address] [place] [address], [place] [address] Sep, [facility] [address] [id number] [address] [place] [address], [place] [address] Sep, [facility] [address] [id number] [address] [place] [address], [place] [address] Sep, [facility] [address] [id number] [address] [place] [address], [place] [address] Aug, [facility] [address] [id number] [address] [place] [address], [place] [address] Aug, [facility] [address] [id number] [address] [place] [address], [place] [address] Aug, [facility] [address] [id number] [address] [place] [address], [place] [address] Aug, [facility] [address] [id number] [address] [place] [address], [place] [address] 17 Aug, 2013 [facility] [address] [id number] [address] [place] [address], [place] [address] 17 Aug, 2013 [facility] [address] [id number] [address] [place] [address], [place] [address] 16 Aug, 2013 [facility] [address] [id number] [address] [place] [address], [place] [address] 16 Aug, 2013 [facility] [address] [id number] [address] [place] [address], [place] [address] 12 Aug, 2013 [facility] [address] [id number] [address] [place] [address], [place] [address] 12 Aug, 2013 [facility] [address] [id number] [address] [place] [address], [place] [address] 10 Aug, 2013 [facility] [address] [id number] [address] [place] [address], [place] [address] 10 Aug, 2013 [facility] [address] [id number] [address] [place] [address], [place] [address] 02 Aug, 2013 [facility] [address] [id number] [address] [place] [address], [place] [address] 02 Aug, 2013 [facility] [address] [id number] [address] [place] [address], [place] [address] 19 Jul, 2013 [facility] [address] [id number] [address] [place] [address], [place] [address] 19 Jul, 2013 [facility] [address] [id number] [address] [place] [address], [place] [address] 18 Jul, 2013 [facility] [address] [id number] [address] [place] [address], [place] [address] 18 Jul, 2013 [facility] [address] [id number] [address] [place] [address], [place] [address] 14 Jul, 2013 [facility] [address] [id number] [address] [place] [address], [place] [address] 14 Jul, 2013 [facility] [address] [id number] [address] [place] [address], [place] [address] 14 Jul, 2013 [facility] [address] [id number] [address] [place] [address], [place] [address] 14 Jul, 2013 [facility] [address] [id number] [address] [place] [address], [place] [address] 07 Jul, 2013 [facility] [address] [id number] [address] [place] [address], [place] [address] 07 Jul, 2013 [facility] [address] [id number] [address] [place] [address], [place] [address] 06 Jul, 2013 [facility] [address] [id number] [address] [place] [address], [place] [address] Jul, [facility] [address] [id number] [address] [place] [address], [place] [address] 05 Jul, 2013 [facility] [address] [id number] [address] [place] [address], [place] [address] 05 Jul, 2013 [facility] [address] [id number] [address] [place] [address], [place] [address] 23 Jun, 2013 [facility] [address] [id number] [address] [place] [address], [place] [address] 23 Jun, 2013 [facility] [address] [id number] [address] [place] [address], [place] [address] 15 Jun, 2013 [facility] [address] [id number] [address] [place] [address], [place] [address] 15 Jun, 2013 [facility] [address] [id number] [address] [place] [address], [place] [address] 14 Jun, 2013 [facility] [address] [id number] [address] [place] [address], [place] [address] 24 May, 2013 [facility] [address] [id number] [address] [place] [address], [place] [address] 20 May, 2013 [facility] [address] [id number] [address] [place] [address], [place] [address] 20 May, 2012 [facility] [address] [id number] [address] [place] [address], [place] [address] 20 Sep, 2012 [facility] [address] [id number] [address] [place] [address], [place] [address] 19 May, 2012 [facility] [address] [id number] [address] [place] [address], [place] [address] 13 May, 2012 [facility] [address] [id number] [address] [place] [address], [place] [address] 12 May, 2012 [facility] [address] [id number] [address] [place] [address], [place] [address] 12 May, 2012 [facility] [address] [id number] [address] [place] [address], [place] [address] 11 May, 2012 [facility] [address] [id number] [address] [place] [address], [place] [address] 11 May, 2012 [facility] [address] [id number] [address] [place] [address], [place] [address] 11 May, 2012 [facility] [address] [id number] [address] [place] [address], [place] [address] 09 May, 2012 [facility] [address] [id number] [address] [place] [address], [place] [address] 05 May, 2012 [facility] [address] [id number] [address] [place] [address], [place] [address] 04 May, 2012 [facility] [address] [id number] [address] [place] [address], [place] [address] 03 May, 2012 [facility] [address] [id number] [address] [place] [address], [place] [address] Apr, [facility] [address] [id number] [address] [place] [address], [place] [address] Apr, [facility] [address] [id number] [address] [place] [address], [place] [address] Apr, [facility] [address] [id number] [address] [place] [address], [place] [address] Apr, [facility] [address] [id number] [address] [place] [address], [place] [address] Apr, [facility] [address] [id number] [address] [place] [address], [place] [address] Apr, [facility] [address] [id number] [address] [place] [address], [place] [address] Apr, [facility] [address] [id number] [address] [place] [address], [place] [address] Apr, [facility] [address] [id number] [address] [place] [address], [place] [address] Apr, [facility] [address] [id number] [address] [place] [address], [place] [address] Mar, [facility] [address] [id number] [address] [place] [address], [place] [address] Mar, [facility] [address] [id number] [address] [place] [address], [place] [address] Mar, [facility] [address] [id number] [address] [place] [address], [place] [address] Mar, [facility] [address] [id number] [address] [place] [address], [place] [address] Mar, [facility] [address] [id number] [address] [place] [address], [place] [address] Mar, [facility] [address] [id number] [address] [place] [address], [place] [address] Mar, [facility] [address] [id number] [address] [place] [address], [place] [address] Mar, [facility] [address] [id number] [address] [place] [address], [place] [address] Mar, [facility] [address] [id number] [address] [place] [address], [place] [address] Mar, [facility] [address] [id number] [address] [place] [address], [place] [address] Mar, [facility] [address] [id number] [address] [place] [address], [place] [address] Feb, [facility] [address] [id number] [address] [place] [address], [place] [address] Feb, [facility] [address] [id number] [address] [place] [address], [place] [address] Feb, [facility] [address] [id number] [address] [place] [address], [place] [address] Feb, [facility] [address] [id number] [address] [place] [address], [place] [address] Feb, [facility] [address] [id number] [address] [place] [address], [place] [address] Feb, [facility] [address] [id number] [address] [place] [address], [place] [address] Feb, [facility] [address] [id number] [address] [place] [address], [place] [address] Feb, [facility] [address] [id number] [address] [place] [address], [place] [address] Feb, [facility] [address] [id number] [address] [place] [address], [place] [address] January, [facility] [address] [id number] [address] [place] [address], [place] [address] January, [facility] [address] [id number] [address] [place] [address], [place] [address] January, [facility] [address] [id number] [address] [place] [address], [place] [address] January, [facility] [address] [id number] [address] [place] [address], [place] [address] January, [facility] [address] [id number] [address] [place] [address], [place] [address] January, [facility] [address] [id number] [address] [place] [address], [place] [address] January, [facility] [address] [id number] [address] [place] [address], [place] [address] January, [facility] [address] [id number] [address] [place] [address], [place] [address] January, [facility] [address] [id number] [address] [place] [address], [place] [address] January, [facility] [address] [id number] [address] [place] [address], [place] [address] January, [facility] [address] [id number] [address] [place] [address], [place] [address] January, [facility] [address] [id number] [address] [place] [address], [place] [address] January, [facility] [address] [id number] [address] [place] [address], [place] [address] January, [facility] [address] [id number] [address] [place] [address], [place] [address] January, [facility] [address] [id number] [address] [place] [address], [place] [address] January, [facility] [address] [id number] [address] [place] [address], [place] [address] January, [facility] [address] [id number] [address] [place] [address], [place] [address] January, [facility] [address] [id number] [address] [place] [address], [place] [address] January, [facility] [address] [id number] [address] [place] [address], [place] [address] January, [facility] [address] [id number] [address] [place] [address], [place] [address] January, [facility] [address] [id number] [address] [place] [address], [place] [address] January, [facility] [address] [id number] [address] [place] [address], [place] [address] January, [facility] [address] [id number] [address] [place] [address], [place] [address] Dec, [facility] [address] [id number] [address] [place] [address], [place] [address] Dec, [facility] [address] [id number] [address] [place] [address], [place] [address] Dec, [facility] [address] [id number] [address] [place] [address], [place] [address] Dec, [facility] [address] [id number] [address] [place] [address], [place] [address] Dec, [facility] [address] [id number] [address] [place] [address], [place] [address] Nov, [facility] [address] [id number] [address] [place] [address], [place] [address] Oct, [facility] [address] [id number] [address] [place] [address], [place] [address] Oct, [facility] [address] [id number] [address] [place] [address], [place] [address] Oct, [facility] [address] [id number] [address] [place] [address], [place] [address] Oct, [facility] [address] [id number] [address] [place] [address], [place] [address] Oct, [facility] [address] [id number] [address] [place] [address], [place] [address] Sep, [facility] [address] [id number] [address] [place] [address], [place] [address] Sep, [facility] [address] [id number] [address] [place] [address], [place] [address] Sep, [facility] [address] [id number] [address] [place] [address], [place] [address] Aug, [facility] [address] [id number] [address] [place] [address], [place] [address] Aug, [facility] [address] [id number] [address] [place] [address], [place] [address] Aug, [facility] [address] [id number] [address] [place] [address], [place] [address] Aug, [facility] [address] [id number] [address] [place] [address], [place] [address] Jul, [facility] [address] [id number] [address] [place] [address], [place] [address] Jul, [facility] [address] [id number] [address] [place] [address], [place] [address] Jul, [facility] [address] [id number] [address] [place] [address], [place] [address] Jul, [facility] [address] [id number] [address] [place] [address], [place] [address] Jul, [facility] [address] [id number] [address] [place] [address], [place] [address] Jul, [facility] [address] [id number] [address] [place] [address], [place] [address] Jun, [facility] [address] [id number] [address] [place] [address] Jun, [facility] [address] [id number] [address] [place] [address], [place] [address] Jun, [facility] [address] [id number] [address] [place] [address], [place] [address] Jun, [facility] [address] [id number] [address] [place] [address], [place] [address] Jun, [facility] [address] [id number] [address] [place] [address], [place] [address] 08 Jun, 2012 [facility] [address] [id number] [address] [place] [address], [place] [address] 05 Jun, 2012 [facility] [address] [id number] [address] [place] [address], [place] [address] 05 Jun, 2012 [facility] [address] [id number] [address] [place] [address], [place] [address] Jun, [facility] [address] [id number] [address] [place] [address], [place] [address] Jun, [facility] [address] [id number] [address] [place] [address], [place] [address] May, [facility] [address] [id number] [address] [place] [address], [place] [address] May, [facility] [address] [id number] [address] [place] [address], [place] [address] May, [facility] [address] [id number] [address] [place] [address], [place] [address] 30 Apr, 2012 [facility] [address] [id number] [address] [place] [address], [place] [address] Apr, [facility] [address] [id number] [address] [place] [address], [place] [address] 14 Apr, 2012 [facility] [address] [id number] [address] [place] [address], [place] [address] Apr, [facility] [address] [id number] [address] [place] [address], [place] [address] Apr, [facility] [address] [id number] [address] [place] [address], [place] [address] Apr, [facility] [address] [id number] [address] [place] [address], [place] [address] Apr, [facility] [address] [id number] [address] [place] [address], [place] [address] Apr, [facility] [address] [id number] [address] [place] [address], [place] [address] Apr, [facility] [address] [id number] [address] [place] [address], [place] [address] Mar, [facility] [address] [id number] [address] [place] [address], [place] [address] Mar, [facility] [address] [id number] [address] [place] [address], [place] [address] Mar, [facility] [address] [id number] [address] [place] [address], [place] [address] Mar, [facility] [address] [id number] [address] [place] [address], [place] [address] Feb, [facility] [address] [id number] [address] [place] [address], [place] [address] Feb, [facility] [address] [id number] [address] [place] [address], [place] [address] Feb, [facility] [address] [id number] [address] [place] [address], [place] [address] January, [facility] [address] [id number] [address] [place] [address], [place] [address] January, [facility] [address] [address] [id number] [address] [place] [address], [place] [address] January, [facility] [address] [id number] [address] [place] [address], [place] [address] January, [facility] [address] [id number] [address] [place] [address], [place] [address] January, [facility] [address] [id number] [address] [place] [address], [place] [address] Dec, [facility] [address] [id number] [address] [place] [address], [place] [address] Dec, [facility] [address] [id number] [address] [place] [address], [place] [address] 16 Dec, 2011 [facility] [address] [id number] [address] [place] [address], [place] [address] Oct, [facility] [address] [id number] [address] [place] [address], [place] [address] Oct, [facility] [address] [id number] [address] [place] [address], [place] [address] Oct, [facility] [address] [id number] [address] [place] [address], [place] [address] Sep, [facility] [address] [id number] [address] [place] [address], [place] [address] Sep, [facility] [address] [id number] [address] [place] [address], [place] [address] Aug, [facility] [address] [id number] [address] [place] [address], [place] [address] Jul, [facility] [address] [id number] [address] [place] [address], [place] [address] Jul, [facility] [address] [id number] [address] [place] [address], [place] [address] Mar, [facility] [address] [id number] [address] [place] [address], [place] [address] Aug, [facility] [address] [id number] [address] [place] [address], [place] [address] 10 Jul, 2010 [facility] [address] [id number] [address] [place] [phone] Jul, [facility] [address] [id number] [address] [place] [address], [place] [address] Jul, [facility] [address] [id number] [address] [place] [address], [place] [address] 04 Jul, 2010 [facility] [address] [id number] [address] [place] [id number] 14 Jun, 2010 [facility] [address] [id number] [address] [place] [phone] Jun, [facility] [address] [id number] [address] [place] [phone] Apr, [facility] [address] [id number] [address] [place] [id number] Aug, [facility] [address] [id number] [address] [place] [phone] Jul, [facility] [address] [id number] [address] [place] [phone] Jul, [facility] [address] [id number] [address] [place] [phone] Jul, [facility] [address] [id number] [address] [place] [phone] Jun, [facility] [address] [id number] [address] [place] [phone] May, [facility] [address] [id number] [address] [place] [phone] Dec, [facility] [address] [id number] [address] [place] [phone] Nov, [facility] [address] [id number] [address] [place] [phone] Oct, [facility] [address] [id number] [address] [place] [phone] Aug, [facility] [address] [id number] [address] [place] [phone] Aug, [facility] [address] [id number] [address] [place] [phone] Jun, IMMUNIZATIONS No Known Immunizations SOCIAL HISTORY Never Assessed REASON FOR VISIT PLAN OF CARE VITAL SIGNS MEDICATIONS No Known Medications RESULTS No Results PROCEDURES No Known [...] x 3 day s 04/2012 Hospitalization History [facility] [place]- Right wrist injury 03/29/2018
--- OUTSIDE RECORDS SUMMARY | 2020-04-09 00:16 | XMS REPORT ---
Author Author Kateryna UMANZOR Organization [facility] Address [address] [place] [address] [address] Care [address] Department Dispatcher Name Role Phone ZENA UMANZOR Unavailable PROBLEMS Type Condition ICD9-CM Code [id number] Code Onset Dates Condition S tatus SNOMED Code Problem Irregular menses N92.6 Active 801 36717 Problem Migraine with aura and without status migrainosu s, not intractable G43.109 Active 5564066 Problem Uncontrolled type 2 diabetes mellitus with hyperglycemia E11.65 Active 642946291 Problem Morbid obesity due to excess calories E66.01 Active 232528210 Problem RLS (restless legs syndrome) G25.81 A ctive 13256443 Problem Morbid obesity E66.01 Active 11398 6002 ALLERGIES No Information ENCOUNTERS Encounter Location Date Diagnosis [facility] [address] [id number] [place] [id number] 07 Dec, 2019 [facility] [address] [facility] [id number] [place] [phone] 06 Dec, 2019 [facility] [address] [facility] [id number] [place] [id number] Dec, [facility] [address] [facility] [id number] [place] [id number] 30 Nov, 2019 [facility] [address] [facility] [id number] [place] [id number] Nov, [facility] [address] [facility] [id number] [place] [id number] Nov, [facility] [address] [facility] [id number] [place] [id number] Nov, RLS (restless legs syndrome) G25.81 [facility] [address] [facility] [id number] [place] [id number] 15 Oct, 2019 [facility] [address] [id number] [address] [place] [id number] 09 Oct, 2019 Influenza J11.1 [facility] [address] [id number] [address] [place] [id number] 16 Sep, 2019 [facility] [address] [id number] [address] [place] [id number] 14 Sep, 2019 [facility] [address] [id number] [address] [place] [id number] 14 Sep, 2019 [facility] [address] [id number] [address] [place] [id number] 13 Sep, 2019 [facility] [address] [id number] [address] [place] [id number] 10 Sep, 2019 Pneumonia of left lower lobe due to infectious organism J18.9 and Migraine with aura and without status migrainosus, not intractable G43.109 [facility] [address] [id number] [address] [place] [phone] 10 Sep, 2019 [facility] [address] [id number] [address] [place] [phone] Sep, [facility] [address] [id number] [address] [place] [id number] 08 Sep, 2019 [facility] [address] [id number] [address] [place] [id number] 08 Sep, 2019 [facility] [address] [id number] [address] [place] [id number] 08 Sep, 2019 Pneumonia of left lower lobe due to infectious organism J18.9 and Migraine with aura and without status migrainosus, not intractable G43.109 [facility] [address] [id number] [address] [place] [id number] 31 Aug, 2019 Irregular menses N92.6 ; Wel l woman exam Z01.419 ; Pelvic cramping R10.2 and Left breast lump N63.20 [facility] [address] [id number] [address] [place] [id number] Aug, [facility] [address] [facility] [id number] [place] [phone] Aug, Well woman exam Z01.419 ; Le ft breast lump N63.20 ; Irregular menses N92.6 ; Encounter for immunization Z23 ; Pelvic cramping R10.2 and Screening for cervical cancer Z12.4 [facility] [address] [id number] [address] [place] [id number] Aug, [facility] [address] [id number] [address] [place] [id number] Aug, [facility] [address] [facility] [id number] [place] [phone] Aug, [facility] [address] [facility] [id number] [place] [phone] Jul, [facility] [address] [facility] [id number] [place] [phone] Jun, [facility] [address] [facility] [id number] [place] [id number] Jun, [facility] [address] [facility] [id number] [place] [phone] Jun, [facility] [address] [facility] [id number] [place] [id number] Jun, BMI 50.0-59.9, adult Z68.43 [facility] [address] [facility] [id number] [place] [id number] Jun, [facility] [address] [facility] [id number] [place] [id number] May, Acute non-recurrent sinusiti s, unspecified location J01.90 ; Diarrhea, unspecified R19.7 ; Vomiting, unspecified R11.10 and Morbid obesity E66.01 [facility] [address] [id number] [address] [place] [id number] Apr, [place] [address] [id number] [address] [place] [id number] Apr, Anemia due to other cause, n ot classified D64.89 and D-dimer, elevated R79.89 [place] [address] [id number] [address] [place] [id number] Apr, [place] [address] [id number] [address] [place] [id number] Apr, [place] [address] [id number] [address] [place] [id number] Mar, Anemia due to other cause, n ot classified D64.89 and D-dimer, elevated R79.89 [place] [address] [facility] [id number] [place] [address] Mar, Leg edema, right R60.0 ; Hig h risk medication use Z79.899 and Morbid obesity E66.01 [place] [address] [place] [id number] [address] [place] [address] Mar, BMI 50.0-59.9, adult Z68.43 [place] [address] [facility] [id number] [place] [id number] Mar, [place] [address] [place] [id number] [address] [place] [id number] January, Uncontrolled type 2 diabetes mellitus with hyperglycemia E11.65 ; RLS (restless legs syndrome) G25.81 and Morbid obesity E66.01 [place] [address] [facility] [id number] [place] [phone] Oct, Lipoma of right lower extrem ity D17.23 [place] [address] [facility] [id number] [place] [id number] 05 Oct, 2018 Lipoma of right lower extrem ity D17.23 [place] [address] [facility] [id number] [place] [address] Sep, [facility] [address] [id number] [address] [place] [address] Sep, [facility] [address] [facility] [id number] [place] [id number] Sep, [facility] [address] [facility] [id number] [place] [id number] Sep, [facility] [address] [facility] [id number] [place] [id number] Sep, [facility] [address] [facility] [id number] [place] [id number] Aug, Uncontrolled type 2 diabetes mellitus with hyperglycemia E11.65 ; Morbid obesity due to excess calories E66.01 ; Lipoma of torso D17.1 and BMI 50.0-59.9, adult Z68.43 [facility] [address] [facility] [id number] [place] [phone] Jun, Encounter for immunization Z 23 [facility] [address] [id number] [address] [place] [phone] Jul, [facility] [address] [facility] [id number] [place] [id number] Jun, Encounter for immunization Z 23 [facility] [address] [id number] [address] [place] [phone] May, [facility] [address] [facility] [id number] [place] [id number] Jun, Encounter for immunization Z 23 [facility] [address] [id number] [address] [place] [phone] May, [facility] [address] [facility] [id number] [place] [id number] May, [facility] [address] [facility] [id number] [place] [phone] Apr, [facility] [address] [id number] [address] [place] [address], [place] [address] Feb, [facility] [address] [id number] [address] [place] [address], [place] [address] Feb, [facility] [address] [id number] [address] [place] [address], [place] [address] Feb, [facility] [address] [id number] [address] [place] [address], [place] [id number] January, [facility] [address] [id number] [address] [place] [address], [place] [address] January, [facility] [address] [id number] [address] [place] [address], [place] [id number] Dec, [facility] [address] [id number] [address] [place] [address], [place] [address] Dec, [facility] [address] [id number] [address] [place] [address], [place] [address] Nov, [facility] [address] [id number] [address] [place] [address], [place] [address] Nov, [facility] [address] [id number] [address] [place] [address], [place] [address] Nov, [facility] [address] [id number] [address] [place] [address], [place] [address] Nov, [facility] [address] [id number] [address] [place] [address], [place] [address] Nov, [facility] [address] [id number] [address] [place] [address], [place] [address] Nov, [facility] [address] [id number] [address] [place] [address], [place] [id number] Nov, [facility] [address] [id number] [address] [place] [address], [place] [address] 18 Oct, 2014 [facility] [address] [id number] [address] [place] [address], [place] [address] Oct, [facility] [address] [id number] [address] [place] [address], [place] [id number] Oct, [facility] [address] [id number] [address] [place] [address], [place] [address] Oct, [facility] [address] [id number] [address] [place] [address], [place] [id number] Oct, [facility] [address] [id number] [address] [place] [address], [place] [id number] Sep, [facility] [address] [id number] [address] [place] [address], [place] [address] Sep, [facility] [address] [id number] [address] [place] [address], [place] [address] Sep, [facility] [address] [id number] [address] [place] [address], [place] [id number] Sep, [facility] [address] [id number] [address] [place] [address], [place] [address] Sep, [facility] [address] [id number] [address] [place] [address], [place] [address] Sep, [facility] [address] [id number] [address] [place] [address], [place] [address] Sep, [facility] [address] [id number] [address] [place] [address], [place] [address] Sep, [facility] [address] [id number] [address] [place] [address], [place] [address] Sep, [facility] [address] [id number] [address] [place] [address], [place] [address] Sep, [facility] [address] [id number] [address] [place] [address], [place] [address] Aug, [facility] [address] [id number] [address] [place] [address], [place] [address] Aug, [facility] [address] [id number] [address] [place] [address], [place] [address] 31 Aug, 2014 [facility] [address] [id number] [address] [place] [address], [place] [address] Aug, [facility] [address] [id number] [address] [place] [address], [place] [address] Aug, [facility] [address] [id number] [address] [place] [address], [place] [address] Aug, [facility] [address] [id number] [address] [place] [address], [place] [address] Aug, [facility] [address] [id number] [address] [place] [address], [place] [address] Aug, [facility] [address] [id number] [address] [place] [address], [place] [address] Aug, [facility] [address] [id number] [address] [place] [address], [place] [address] Aug, [facility] [address] [id number] [address] [place] [address], [place] [address] Aug, [facility] [address] [id number] [address] [place] [address], [place] [address] Aug, [facility] [address] [id number] [address] [place] [address], [place] [id number] 18 Aug, 2014 [facility] [address] [id number] [address] [place] [address], [place] [address] 18 Aug, 2014 [facility] [address] [id number] [address] [place] [address], [place] [address] 17 Aug, 2014 [facility] [address] [id number] [address] [place] [address], [place] [address] 17 Aug, 2014 [facility] [address] [id number] [address] [place] [address], [place] [id number] 16 Aug, 2014 [facility] [address] [id number] [address] [place] [address], [place] [address] 16 Aug, 2014 [facility] [address] [id number] [address] [place] [address], [place] [address] Aug, [facility] [address] [id number] [address] [place] [address], [place] [address] Aug, [facility] [address] [id number] [address] [place] [address], [place] [address] 08 Aug, 2014 [facility] [address] [id number] [address] [place] [address], [place] [address] 08 Aug, 2014 [facility] [address] [id number] [address] [place] [address], [place] [address] Aug, [facility] [address] [id number] [address] [place] [address], [place] [address] 05 Aug, 2014 [facility] [address] [id number] [address] [place] [address], [place] [address] Jul, [facility] [address] [id number] [address] [place] [address], [place] [id number] Jul, [facility] [address] [id number] [address] [place] [address], [place] [address] Jun, [facility] [address] [id number] [address] [place] [address], [place] [address] 27 Jun, 2014 [facility] [address] [id number] [address] [place] [address], [place] [address] 17 Jun, 2014 [facility] [address] [id number] [address] [place] [id number] 17 Jun, 2014 [facility] [address] [id number] [address] [place] [address], [place] [address] 15 Jun, 2014 [facility] [address] [id number] [address] [place] [address], [place] [address] 15 Jun, 2014 [facility] [address] [id number] [address] [place] [id number] 14 Jun, 2014 [facility] [address] [id number] [address] [place] [id number] 14 Jun, 2014 [facility] [address] [id number] [address] [place] [address], [place] [address] Jun, [facility] [address] [id number] [address] [place] [address], [place] [address] Jun, [facility] [address] [id number] [address] [place] [address], [place] [address] Jun, [facility] [address] [id number] [address] [place] [address], [place] [address] Jun, [facility] [address] [id number] [address] [place] [address], [place] [address] Jun, [facility] [address] [id number] [address] [place] [address], [place] [address] Jun, [facility] [address] [id number] [address] [place] [address], [place] [address] May, [facility] [address] [id number] [address] [place] [address], [place] [address] May, [facility] [address] [id number] [address] [place] [address], [place] [address] May, [facility] [address] [id number] [address] [place] [address], [place] [address] May, 2013 [facility] [address] [id number] [address] [place] [address], [place] [address] May, 2013 [facility] [address] [id number] [address] [place] [address], [place] [address] 04 May, 2013 [facility] [address] [id number] [address] [place] [address], [place] [address] May, [facility] [address] [id number] [address] [place] [address], [place] [address] May, [facility] [address] [id number] [address] [place] [address], [place] [address] Apr, [facility] [address] [id number] [facility] [place] [address] Apr, [facility] [address] [id number] [facility] [place] [address] Apr, [facility] [address] [id number] [facility] [place] [address] Apr, [facility] [address] [id number] [facility] [place] [address] Apr, [facility] [address] [id number] [facility] [place] [address] Apr, [facility] [address] [id number] [address] [place] [address], [place] [id number] Apr, [facility] [address] [id number] [address] [place] [address], [place] [address] Apr, [facility] [address] [id number] [address] [place] [address], [place] [address] Apr, [facility] [address] [id number] [address] [place] [address], [place] [address] Mar, [facility] [address] [id number] [address] [place] [address], [place] [address] Mar, [facility] [address] [id number] [address] [place] [address], [place] [address] Mar, [facility] [address] [id number] [address] [place] [address], [place] [address] Feb, [facility] [address] [id number] [address] [place] [address], [place] [id number] Feb, [facility] [address] [id number] [address] [place] [address], [place] [address] Feb, [facility] [address] [id number] [address] [place] [address], [place] [address] Feb, [facility] [address] [id number] [address] [place] [address], [place] [id number] Feb, [facility] [address] [id number] [facility] [place] [address] 17 Feb, 2014 [facility] [address] [id number] [facility] [place] [address] Feb, [facility] [address] [id number] [facility] [place] [address] Feb, [facility] [address] [id number] [address] [place] [address], [place] [address] Feb, [facility] [address] [id number] [address] [place] [address], [place] [address] Feb, [facility] [address] [id number] [address] [place] [address], [place] [address] Feb, [facility] [address] [id number] [address] [place] [address], [place] [id number] Feb, [facility] [address] [id number] [address] [place] [address], [place] [address] Feb, [facility] [address] [id number] [address] [place] [address], [place] [address] Feb, [facility] [address] [id number] [address] [place] [address], [place] [address] Feb, [facility] [address] [id number] [address] [place] [address], [place] [address] Feb, [facility] [address] [id number] [address] [place] [address], [place] [address] January, [facility] [address] [id number] [address] [place] [address], [place] [address] January, [facility] [address] [id number] [address] [place] [address], [place] [id number] January, [facility] [address] [id number] [address] [place] [address], [place] [id number] January, [facility] [address] [id number] [address] [place] [address], [place] [address] January, [facility] [address] [id number] [facility] [place] [address] January, [facility] [address] [id number] [facility] [place] [address] January, [facility] [address] [id number] [address] [place] [address], [place] [address] January, [facility] [address] [id number] [address] [place] [address], [place] [address] January, [facility] [address] [id number] [address] [place] [address], [place] [address] January, [facility] [address] [id number] [address] [place] [address], [place] [id number] January, [facility] [address] [id number] [address] [place] [address], [place] [id number] January, [facility] [address] [id number] [address] [place] [address], [place] [address] January, [facility] [address] [id number] [address] [place] [address], [place] [address] January, [facility] [address] [id number] [address] [place] [address], [place] [address] January, [facility] [address] [id number] [address] [place] [address], [place] [address] January, [facility] [address] [id number] [address] [place] [address], [place] [address] January, [facility] [address] [id number] [address] [place] [address], [place] [address] January, [facility] [address] [id number] [address] [place] [address], [place] [address] January, [facility] [address] [id number] [address] [place] [address], [place] [address] January, [facility] [address] [id number] [facility] [place] [address] January, [facility] [address] [id number] [address] [place] [address], [place] [address] January, [facility] [address] [id number] [address] [place] [address], [place] [address] January, [facility] [address] [id number] [address] [place] [address], [place] [address] January, [facility] [address] [id number] [address] [place] [address], [place] [address] January, [facility] [address] [id number] [address] [place] [address], [place] [address] January, [facility] [address] [id number] [address] [place] [address], [place] [address] Dec, [facility] [address] [id number] [address] [place] [address], [place] [address] Dec, [facility] [address] [id number] [address] [place] [address], [place] [address] Dec, [facility] [address] [id number] [address] [place] [address], [place] [address] Dec, [facility] [address] [id number] [address] [place] [address], [place] [address] Dec, [facility] [address] [id number] [address] [place] [address], [place] [address] Dec, [facility] [address] [id number] [address] [place] [address], [place] [address] Dec, [facility] [address] [id number] [address] [place] [address], [place] [address] Dec, [facility] [address] [id number] [address] [place] [address], [place] [address] Dec, [facility] [address] [id number] [address] [place] [address], [place] [address] Dec, [facility] [address] [id number] [facility] [place] [address] Dec, [facility] [address] [id number] [address] [place] [address], [place] [address] Dec, [facility] [address] [id number] [address] [place] [address], [place] [address] Dec, [facility] [address] [id number] [address] [place] [address], [place] [address] Dec, [facility] [address] [id number] [address] [place] [address], [place] [address] Dec, [facility] [address] [id number] [address] [place] [address], [place] [address] Dec, [facility] [address] [id number] [address] [place] [address], [place] [address] Dec, [facility] [address] [id number] [address] [place] [address], [place] [address] Dec, [facility] [address] [id number] [address] [place] [address], [place] [address] Dec, [facility] [address] [id number] [address] [place] [address], [place] [address] Dec, [facility] [address] [id number] [address] [place] [address], [place] [address] Dec, [facility] [address] [id number] [address] [place] [address], [place] [address] Dec, [facility] [address] [id number] [address] [place] [address], [place] [address] Nov, [facility] [address] [id number] [address] [place] [address], [place] [address] Nov, [facility] [address] [id number] [address] [place] [address], [place] [address] Nov, [facility] [address] [id number] [facility] [place] [address] 25 Nov, 2013 [facility] [address] [id number] [facility] [place] [address] 24 Nov, 2013 [facility] [address] [id number] [facility] [place] [address] 24 Nov, 2013 [facility] [address] [id number] [address] [place] [address], [place] [address] 22 Nov, 2013 [facility] [address] [id number] [address] [place] [address], [place] [address] 22 Nov, 2013 [facility] [address] [id number] [address] [place] [address], [place] [address] 18 Nov, 2013 [facility] [address] [id number] [address] [place] [address], [place] [address] 18 Nov, 2013 [facility] [address] [id number] [address] [place] [address], [place] [address] 18 Nov, 2013 [facility] [address] [id number] [address] [place] [address], [place] [address] 18 Nov, 2013 [facility] [address] [id number] [address] [place] [address], [place] [address] 14 Nov, 2013 [facility] [address] [id number] [address] [place] [address], [place] [address] 14 Nov, 2013 [facility] [address] [id number] [address] [place] [address], [place] [address] 06 Nov, 2013 [facility] [address] [id number] [address] [place] [address], [place] [address] Nov, [facility] [address] [id number] [address] [place] [address], [place] [address] Oct, [facility] [address] [id number] [address] [place] [address], [place] [address] Oct, [facility] [address] [id number] [address] [place] [address], [place] [address] Oct, [facility] [address] [id number] [facility] [place] [address] Oct, [facility] [address] [id number] [address] [place] [address], [place] [address] Oct, [facility] [address] [id number] [address] [place] [address], [place] [address] Oct, [facility] [address] [id number] [address] [place] [address], [place] [address] Oct, [facility] [address] [id number] [address] [place] [address], [place] [address] Oct, [facility] [address] [id number] [address] [place] [address], [place] [address] Oct, [facility] [address] [id number] [address] [place] [address], [place] [address] Oct, [facility] [address] [id number] [address] [place] [address], [place] [address] Oct, [facility] [address] [id number] [address] [place] [address], [place] [address] Oct, [facility] [address] [id number] [address] [place] [address], [place] [address] Oct, [facility] [address] [id number] [address] [place] [address], [place] [address] Oct, [facility] [address] [id number] [address] [place] [address], [place] [address] Oct, [facility] [address] [id number] [address] [place] [address], [place] [address] Sep, [facility] [address] [id number] [address] [place] [address], [place] [address] Sep, [facility] [address] [id number] [address] [place] [address], [place] [address] Sep, [facility] [address] [id number] [address] [place] [address], [place] [address] 15 Sep, 2013 [facility] [address] [id number] [address] [place] [address], [place] [address] Sep, [facility] [address] [id number] [address] [place] [address], [place] [address] Sep, [facility] [address] [id number] [address] [place] [address], [place] [address] Sep, [facility] [address] [id number] [address] [place] [address], [place] [address] Sep, [facility] [address] [id number] [address] [place] [address], [place] [address] Sep, [facility] [address] [id number] [address] [place] [address], [place] [address] Sep, [facility] [address] [id number] [address] [place] [address], [place] [address] Sep, [facility] [address] [id number] [address] [place] [address], [place] [address] Sep, [facility] [address] [id number] [address] [place] [address], [place] [id number] Sep, [facility] [address] [id number] [address] [place] [address], [place] [address] Aug, [facility] [address] [id number] [address] [place] [address], [place] [address] Aug, [facility] [address] [id number] [address] [place] [address], [place] [address] Aug, [facility] [address] [id number] [address] [place] [address], [place] [address] Aug, [facility] [address] [id number] [address] [place] [address], [place] [address] 17 Aug, 2013 [facility] [address] [id number] [address] [place] [address], [place] [address] 17 Aug, 2013 [facility] [address] [id number] [address] [place] [address], [place] [address] 16 Aug, 2013 [facility] [address] [id number] [address] [place] [address], [place] [address] 16 Aug, 2013 [facility] [address] [id number] [address] [place] [address], [place] [id number] 12 Aug, 2013 [facility] [address] [id number] [address] [place] [address], [place] [address] 12 Aug, 2013 [facility] [address] [id number] [address] [place] [address], [place] [address] 10 Aug, 2013 [facility] [address] [id number] [address] [place] [address], [place] [address] 10 Aug, 2013 [facility] [address] [id number] [address] [place] [address], [place] [address] 02 Aug, 2013 [facility] [address] [id number] [address] [place] [address], [place] [address] 02 Aug, 2013 [facility] [address] [id number] [address] [place] [address], [place] [address] 19 Jul, 2013 [facility] [address] [id number] [address] [place] [address], [place] [address] 19 Jul, 2013 [facility] [address] [id number] [address] [place] [address], [place] [address] 18 Jul, 2013 [facility] [address] [id number] [address] [place] [address], [place] [address] 18 Jul, 2013 [facility] [address] [id number] [address] [place] [address], [place] [address] 14 Jul, 2013 [facility] [address] [id number] [address] [place] [address], [place] [address] 14 Jul, 2013 [facility] [address] [id number] [address] [place] [address], [place] [address] 14 Jul, 2013 [facility] [address] [id number] [address] [place] [address], [place] [address] 14 Jul, 2013 [facility] [address] [id number] [address] [place] [address], [place] [address] 07 Jul, 2012 [facility] [address] [id number] [address] [place] [address], [place] [address] 07 Jul, 2012 [facility] [address] [id number] [address] [place] [address], [place] [address] 06 Jul, 2012 [facility] [address] [id number] [address] [place] [address], [place] [address] 06 Jul, 2012 [facility] [address] [id number] [address] [place] [address], [place] [address] 05 Jul, 2013 [facility] [address] [id number] [address] [place] [address], [place] [address] 05 Jul, 2013 [facility] [address] [id number] [address] [place] [address], [place] [address] Jun, [facility] [address] [id number] [address] [place] [address], [place] [address] 23 Jun, 2013 [facility] [address] [id number] [address] [place] [address], [place] [address] 15 Jun, 2013 [facility] [address] [id number] [address] [place] [address], [place] [address] 15 Jun, 2013 [facility] [address] [id number] [address] [place] [address], [place] [address] 14 Jun, 2013 [facility] [address] [id number] [address] [place] [address], [place] [address] 24 May, 2012 [facility] [address] [id number] [address] [place] [address], [place] [address] 20 May, 2013 [facility] [address] [id number] [address] [place] [address], [place] [address] 20 May, 2012 [facility] [address] [id number] [address] [place] [address], [place] [address] 20 May, 2012 [facility] [address] [id number] [address] [place] [address], [place] [id number] 19 May, 2012 [facility] [address] [id number] [address] [place] [address], [place] [address] 13 May, 2012 [facility] [address] [id number] [address] [place] [address], [place] [address] 12 May, 2012 [facility] [address] [id number] [address] [place] [address], [place] [address] 12 May, 2012 [facility] [address] [id number] [address] [place] [address], [place] [address] 11 May, 2012 [facility] [address] [id number] [address] [place] [address], [place] [address] 11 May, 2012 [facility] [address] [id number] [address] [place] [address], [place] [address] 11 May, 2012 [facility] [address] [id number] [address] [place] [address], [place] [address] 09 May, 2012 [facility] [address] [id number] [address] [place] [address], [place] [address] 05 May, 2012 [facility] [address] [id number] [address] [place] [address], [place] [address] 04 May, 2012 [facility] [address] [id number] [address] [place] [address], [place] [address] 03 May, 2012 [facility] [address] [id number] [address] [place] [address], [place] [address] Apr, 2012 [facility] [address] [id number] [address] [place] [address], [place] [address] Apr, [facility] [address] [id number] [address] [place] [address], [place] [address] Apr, 2012 [facility] [address] [id number] [address] [place] [address], [place] [address] Apr, 2012 [facility] [address] [id number] [address] [place] [address], [place] [address] Apr, [facility] [address] [id number] [address] [place] [address], [place] [id number] Apr, [facility] [address] [id number] [address] [place] [address], [place] [address] Apr, [facility] [address] [id number] [address] [place] [address], [place] [id number] Apr, [facility] [address] [id number] [address] [place] [address], [place] [address] Apr, [facility] [address] [id number] [address] [place] [address], [place] [address] Mar, [facility] [address] [id number] [address] [place] [address], [place] [address] Mar, [facility] [address] [id number] [address] [place] [address], [place] [address] Mar, [facility] [address] [id number] [address] [place] [address], [place] [id number] Mar, [facility] [address] [id number] [address] [place] [address], [place] [id number] Mar, [facility] [address] [id number] [address] [place] [address], [place] [id number] Mar, [facility] [address] [id number] [address] [place] [address], [place] [address] Mar, [facility] [address] [id number] [address] [place] [address], [place] [address] Mar, [facility] [address] [id number] [address] [place] [address], [place] [id number] Mar, [facility] [address] [id number] [address] [place] [address], [place] [id number] Mar, [facility] [address] [id number] [address] [place] [address], [place] [id number] Mar, [facility] [address] [id number] [address] [place] [address], [place] [address] Feb, [facility] [address] [id number] [address] [place] [address], [place] [id number] Feb, [facility] [address] [id number] [address] [place] [address], [place] [address] Feb, [facility] [address] [id number] [address] [place] [address], [place] [id number] Feb, [facility] [address] [id number] [address] [place] [address], [place] [id number] Feb, [facility] [address] [id number] [address] [place] [address], [place] [id number] Feb, [facility] [address] [id number] [address] [place] [address], [place] [id number] Feb, [facility] [address] [id number] [address] [place] [address], [place] [id number] Feb, [facility] [address] [id number] [address] [place] [address], [place] [id number] Feb, [facility] [address] [id number] [address] [place] [address], [place] [address] January, [facility] [address] [id number] [address] [place] [address], [place] [id number] January, [facility] [address] [id number] [address] [place] [address], [place] [id number] January, [facility] [address] [id number] [address] [place] [address], [place] [address] January, [facility] [address] [id number] [address] [place] [address], [place] [id number] January, [facility] [address] [id number] [address] [place] [address], [place] [id number] January, [facility] [address] [id number] [address] [place] [address], [place] [id number] January, [facility] [address] [id number] [address] [place] [address], [place] [address] January, [facility] [address] [id number] [address] [place] [address], [place] [id number] January, [facility] [address] [id number] [address] [place] [address], [place] [id number] January, [facility] [address] [id number] [address] [place] [address], [place] [address] January, [facility] [address] [id number] [address] [place] [address], [place] [address] January, [facility] [address] [id number] [address] [place] [address], [place] [address] January, [facility] [address] [id number] [address] [place] [address], [place] [address] January, [facility] [address] [id number] [address] [place] [address], [place] [id number] January, [facility] [address] [id number] [address] [place] [address], [place] [address] January, [facility] [address] [id number] [address] [place] [address], [place] [address] January, [facility] [address] [id number] [address] [place] [address], [place] [id number] January, [facility] [address] [id number] [address] [place] [address], [place] [id number] January, [facility] [address] [id number] [address] [place] [address], [place] [id number] January, [facility] [address] [id number] [address] [place] [address], [place] [address] January, [facility] [address] [id number] [address] [place] [address], [place] [address] January, [facility] [address] [id number] [address] [place] [address], [place] [id number] January, [facility] [address] [id number] [address] [place] [address], [place] [id number] Dec, [facility] [address] [id number] [address] [place] [address], [place] [address] Dec, [facility] [address] [id number] [address] [place] [address], [place] [id number] Dec, [facility] [address] [id number] [address] [place] [address], [place] [id number] Dec, [facility] [address] [id number] [address] [place] [address], [place] [id number] Dec, [facility] [address] [id number] [address] [place] [address], [place] [address] Nov, [facility] [address] [id number] [address] [place] [address], [place] [id number] Oct, [facility] [address] [id number] [address] [place] [address], [place] [id number] Oct, [facility] [address] [id number] [address] [place] [address], [place] [id number] Oct, [facility] [address] [id number] [address] [place] [address], [place] [address] Oct, [facility] [address] [id number] [address] [place] [address], [place] [id number] Oct, [facility] [address] [id number] [address] [place] [address], [place] [id number] Sep, [facility] [address] [id number] [address] [place] [address], [place] [id number] Sep, [facility] [address] [id number] [address] [place] [address], [place] [id number] Sep, [facility] [address] [id number] [address] [place] [address], [place] [id number] Aug, [facility] [address] [id number] [address] [place] [address], [place] [address] Aug, [facility] [address] [id number] [address] [place] [address], [place] [id number] Aug, [facility] [address] [id number] [address] [place] [address], [place] [id number] Aug, [facility] [address] [id number] [address] [place] [address], [place] [id number] Jul, [facility] [address] [id number] [address] [place] [address], [place] [id number] Jul, [facility] [address] [id number] [address] [place] [address], [place] [id number] Jul, [facility] [address] [id number] [address] [place] [address], [place] [id number] Jul, [facility] [address] [id number] [address] [place] [address], [place] [id number] Jul, [facility] [address] [id number] [address] [place] [address], [place] [id number] Jul, [facility] [address] [id number] [address] [place] [id number] Jun, [facility] [address] [id number] [address] [place] [id number] Jun, [facility] [address] [id number] [address] [place] [id number] Jun, [facility] [address] [id number] [address] [place] [address], [place] [id number] Jun, [facility] [address] [id number] [address] [place] [id number] Jun, [facility] [address] [id number] [address] [place] [id number] Jun, [facility] [address] [id number] [address] [place] [id number] Jun, [facility] [address] [id number] [address] [place] [address], [place] [id number] Jun, [facility] [address] [id number] [address] [place] [address], [place] [id number] Jun, [facility] [address] [id number] [address] [place] [address], [place] [id number] Jun, [facility] [address] [id number] [address] [place] [address], [place] [id number] 17 May, 2012 [facility] [address] [id number] [address] [place] [address], [place] [id number] 08 May, 2012 [facility] [address] [id number] [address] [place] [address], [place] [id number] 06 May, 2012 [facility] [address] [id number] [address] [place] [address], [place] [id number] 30 Apr, 2012 [facility] [address] [id number] [address] [place] [address], [place] [id number] Apr, [facility] [address] [id number] [address] [place] [address], [place] [id number] Apr, [facility] [address] [id number] [address] [place] [address], [place] [id number] Apr, [facility] [address] [id number] [address] [place] [address], [place] [id number] Apr, [facility] [address] [id number] [address] [place] [address], [place] [id number] Apr, [facility] [address] [id number] [address] [place] [address], [place] [id number] Apr, [facility] [address] [id number] [address] [place] [address], [place] [id number] Apr, [facility] [address] [id number] [address] [place] [address], [place] [id number] Apr, [facility] [address] [id number] [address] [place] [address], [place] [id number] Mar, [facility] [address] [id number] [address] [place] [address], [place] [id number] Mar, [facility] [address] [id number] [address] [place] [address], [place] [id number] Mar, [facility] [address] [id number] [address] [place] [address], [place] [id number] Mar, [facility] [address] [id number] [address] [place] [address], [place] [id number] Feb, [facility] [address] [id number] [address] [place] [address], [place] [id number] Feb, [facility] [address] [id number] [address] [place] [address], [place] [id number] Feb, [facility] [address] [id number] [address] [place] [address], [place] [id number] January, [facility] [address] [id number] [address] [place] [address], [place] [id number] January, [facility] [address] [id number] [address] [place] [address], [place] [address] January, [facility] [address] [id number] [address] [place] [address], [place] [id number] January, [facility] [address] [id number] [address] [place] [address], [place] [id number] January, [facility] [address] [id number] [address] [place] [address], [place] [id number] Dec, [facility] [address] [id number] [address] [place] [address], [place] [id number] Dec, [facility] [address] [id number] [address] [place] [address], [place] [id number] Dec, [facility] [address] [id number] [address] [place] [address], [place] [id number] Oct, [facility] [address] [id number] [address] [place] [address], [place] [id number] Oct, [facility] [address] [id number] [address] [place] [address], [place] [id number] Oct, [facility] [address] [id number] [address] [place] [address], [place] [id number] Sep, [facility] [address] [id number] [address] [place] [address], [place] [id number] Sep, [facility] [address] [id number] [address] [place] [address], [place] [id number] Aug, [facility] [address] [id number] [address] [place] [address], [place] [id number] Jul, [facility] [address] [id number] [address] [place] [address], [place] [id number] Jul, [facility] [address] [id number] [address] [place] [address], [place] [id number] Mar, [facility] [address] [id number] [address] [place] [address], [place] [id number] Aug, [facility] [address] [id number] [address] [place] [address], [place] [id number] Jul, [facility] [address] [id number] [address] [place] [id number] Jul, [facility] [address] [id number] [address] [place] [id number] Jul, [facility] [address] [id number] [address] [place] [address], [place] [id number] Jul, [facility] [address] [id number] [address] [place] [id number] 14 Jun, 2010 [facility] [address] [id number] [address] [place] [address], [place] [address] Jun, [facility] [address] [id number] [address] [place] [id number] Apr, [facility] [address] [id number] [address] [place] [id number] Aug, [facility] [address] [id number] [address] [place] [id number] Jul, [facility] [address] [id number] [address] [place] [id number] Jul, [facility] [address] [id number] [address] [place] [id number] Jul, [facility] [address] [id number] [address] [place] [id number] Jun, [facility] [address] [id number] [address] [place] [id number] May, [facility] [address] [id number] [address] [place] [id number] 14 Dec, 2008 [facility] [address] [id number] [address] [place] [id number] Nov, [facility] [address] [id number] [address] [place] [id number] 10 Oct, 2008 [facility] [address] [id number] [address] [place] [id number] Aug, [facility] [address] [id number] [address] [place] [id number] Aug, [facility] [address] [id number] [address] [place] [id number] Jun, IMMUNIZATIONS No Known Immunizations SOCIAL HISTORY [...] x 3 day s 04/2012 Hospitalization History [facility]- Right wrist injury 03/29/2018
--- OUTSIDE RECORDS SUMMARY | 2020-04-09 00:16 | XMS REPORT ---
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 Role Phone ZENA UMANZOR Unavailable PROBLEMS Type Condition ICD9-CM Code [id number] Code Onset Dates Condition S tatus SNOMED Code Problem Irregular menses N92.6 Active 801 00791 Problem Migraine with aura and without status migrainosu s, not intractable G43.109 Active 2204037 Problem Uncontrolled type 2 diabetes mellitus with hyperglycemia E11.65 Active 516636949 Problem Morbid obesity due to excess calories E66.01 Active 283357633 Problem RLS (restless legs syndrome) G25.81 A ctive 99993907 Problem Morbid obesity E66.01 Active 81487 6002 ALLERGIES No Information ENCOUNTERS Encounter Location Date Diagnosis [facility] [place] [address] [facility] [id number] [address] [place] [id number] 07 Dec, 2019 [facility] [place] [address] [facility] [id number] [address] [place] [id number] 06 Dec, 2019 [facility] [place] [address] [facility] [id number] [address] [place] [phone] Dec, [facility] [place] [address] [facility] [id number] [address] [place] [id number] 30 Nov, 2019 [facility] [place] [address] [facility] [id number] [address] [place] [phone] Nov, [facility] [place] [address] [facility] [id number] [address] [place] [phone] Nov, [facility] [place] [address] [facility] [id number] [address] [place] [id number] Nov, RLS (restless legs syndrome) G25.81 [facility] [place] [address] [facility] [id number] [address] [place] [id number] 15 Oct, 2019 [facility] [address] [id number] [address] [place] [id number] 09 Oct, 2019 Influenza J11.1 [facility] [place] [address] [id number] [address] [place] [id number] 16 Sep, 2019 [facility] [place] [address] [id number] [address] [place] [id number] 14 Sep, 2019 [facility] [place] [address] [id number] [address] [place] [id number] 14 Sep, 2019 [facility] [place] [address] [id number] [address] [place] [id number] 13 Sep, 2019 [facility] [place] [address] [id number] [address] [place] [id number] 10 Sep, 2019 Pneumonia of left lower lobe due to infectious organism J18.9 and Migraine with aura and without status migrainosus, not intractable G43.109 [facility] [place] [address] [id number] [address] [place] [id number] 10 Sep, 2019 [facility] [place] [address] [id number] [address] [place] [id number] Sep, [facility] [place] [address] [id number] [address] [place] [id number] 08 Sep, 2019 [facility] [place] [address] [id number] [address] [place] [id number] 08 Sep, 2019 [facility] [place] [address] [id number] [address] [place] [id number] 08 Sep, 2019 Pneumonia of left lower lobe due to infectious organism J18.9 and Migraine with aura and without status migrainosus, not intractable G43.109 [facility] [place] [address] [id number] [address] [place] [id number] 31 Aug, 2019 Irregular menses N92.6 ; Wel l woman exam Z01.419 ; Pelvic cramping R10.2 and Left breast lump N63.20 [facility] [place] [address] [id number] [address] [place] [id number] Aug, [facility] [place] [address] [facility] [id number] [address] [place] [id number] Aug, Well woman exam Z01.419 ; Le ft breast lump N63.20 ; Irregular menses N92.6 ; Encounter for immunization Z23 ; Pelvic cramping R10.2 and Screening for cervical cancer Z12.4 [facility] [place] [address] [id number] [address] [place] [id number] Aug, [facility] [place] [address] [id number] [address] [place] [id number] Aug, [facility] [place] [address] [facility] [id number] [address] [place] [phone] Aug, [facility] [place] [address] [facility] [id number] [address] [place] [phone] Jul, [facility] [place] [address] [facility] [id number] [address] [place] [phone] Jun, [facility] [place] [address] [facility] [id number] [address] [place] [id number] Jun, [facility] [place] [address] [facility] [id number] [address] [place] [phone] Jun, [facility] [place] [address] [facility] [id number] [address] [place] [phone] Jun, BMI 50.0-59.9, adult Z68.43 [facility] [place] [address] [facility] [id number] [address] [place] [phone] Jun, [facility] [address] [facility] [id number] [address] [place] [id number] May, Acute non-recurrent sinusiti s, unspecified location J01.90 ; Diarrhea, unspecified R19.7 ; Vomiting, unspecified R11.10 and Morbid obesity E66.01 [facility] [place] [address] [id number] [address] [place] [id number] Apr, [place] [address] [id number] [address] [place] [id number] Apr, Anemia due to other cause, n ot classified D64.89 and D-dimer, elevated R79.89 [place] [address] [id number] [address] [place] [phone] Apr, [place] [address] [id number] [address] [place] [phone] Apr, [place] [address] [id number] [address] [place] [phone] Mar, Anemia due to other cause, n ot classified D64.89 and D-dimer, elevated R79.89 [place] [address] [facility] [id number] [address] [place] [id number] Mar, Leg edema, right R60.0 ; Hig h risk medication use Z79.899 and Morbid obesity E66.01 [place] [address] [place] [id number] [address] [place] [id number] Mar, BMI 50.0-59.9, adult Z68.43 [place] [address] [facility] [id number] [address] [place] [id number] Mar, [place] [address] [place] [id number] [address] [place] [id number] January, Uncontrolled type 2 diabetes mellitus with hyperglycemia E11.65 ; RLS (restless legs syndrome) G25.81 and Morbid obesity E66.01 [place] [address] [facility] [id number] [address] [place] [address] Oct, Lipoma of right lower extrem ity D17.23 [place] [address] [facility] [id number] [address] [place] [id number] 05 Oct, 2018 Lipoma of right lower extrem ity D17.23 [place] [address] [facility] [id number] [address] [place] [phone] Sep, [facility] [place] [address] [id number] [address] [place] [phone] Sep, [facility] [place] [address] [facility] [id number] [address] [place] [phone] Sep, [facility] [place] [address] [facility] [id number] [address] [place] [phone] Sep, [facility] [place] [address] [facility] [id number] [address] [place] [id number] Sep, [facility] [place] [address] [facility] [id number] [address] [place] [id number] Aug, Uncontrolled type 2 diabetes mellitus with hyperglycemia E11.65 ; Morbid obesity due to excess calories E66.01 ; Lipoma of torso D17.1 and BMI 50.0-59.9, adult Z68.43 [facility] [place] [address] [facility] [id number] [address] [place] [phone] Jun, Encounter for immunization Z 23 [facility] [place] [address] [id number] [address] [place] [id number] Jul, [facility] [place] [address] [facility] [id number] [address] [place] [id number] Jun, Encounter for immunization Z 23 [facility] [place] [address] [id number] [address] [place] [id number] May, [facility] [place] [address] [facility] [id number] [address] [place] [id number] Jun, Encounter for immunization Z 23 [facility] [place] [address] [id number] [address] [place] [phone] May, [facility] [place] [address] [facility] [id number] [address] [place] [phone] May, [facility] [place] [address] [facility] [id number] [address] [place] [phone] Apr, [facility] [address] [id number] [address] [place] [address], [place] [id number] Feb, [facility] [address] [id number] [address] [place] [address], [place] [phone] Feb, [facility] [address] [id number] [address] [place] [address], [place] [phone] Feb, [facility] [address] [id number] [address] [place] [address], [place] [id number] January, [facility] [address] [id number] [address] [place] [address], [place] [id number] January, [facility] [address] [id number] [address] [place] [address], [place] [id number] Dec, [facility] [address] [id number] [address] [place] [address], [place] [id number] Dec, [facility] [address] [id number] [address] [place] [address], [place] [id number] Nov, [facility] [address] [id number] [address] [place] [address], [place] [id number] Nov, [facility] [address] [id number] [address] [place] [address], [place] [id number] Nov, [facility] [address] [id number] [address] [place] [address], [place] [phone] Nov, [facility] [address] [id number] [address] [place] [address], [place] [id number] Nov, [facility] [address] [id number] [address] [place] [address], [place] [id number] Nov, [facility] [address] [id number] [address] [place] [address], [place] [id number] Nov, [facility] [address] [id number] [address] [place] [address], [place] [phone] 18 Oct, 2014 [facility] [address] [id number] [address] [place] [address], [place] [id number] Oct, [facility] [address] [id number] [address] [place] [address], [place] [id number] Oct, [facility] [address] [id number] [address] [place] [address], [place] [id number] Oct, [facility] [address] [id number] [address] [place] [address], [place] [id number] Oct, [facility] [address] [id number] [address] [place] [address], [place] [id number] Sep, [facility] [address] [id number] [address] [place] [address], [place] [id number] Sep, [facility] [address] [id number] [address] [place] [address], [place] [id number] Sep, [facility] [address] [id number] [address] [place] [address], [place] [address] Sep, [facility] [address] [id number] [address] [place] [address], [place] [id number] Sep, [facility] [address] [id number] [address] [place] [address], [place] [id number] Sep, [facility] [address] [id number] [address] [place] [address], [place] [id number] Sep, [facility] [address] [id number] [address] [place] [address], [place] [phone] Sep, [facility] [address] [id number] [address] [place] [address], [place] [id number] Sep, [facility] [address] [id number] [address] [place] [address], [place] [id number] Sep, [facility] [address] [id number] [address] [place] [address], [place] [address] Aug, [facility] [address] [id number] [address] [place] [address], [place] [id number] Aug, [facility] [address] [id number] [address] [place] [address], [place] [id number] 31 Aug, 2014 [facility] [address] [id number] [address] [place] [address], [place] [id number] Aug, [facility] [address] [id number] [address] [place] [address], [place] [id number] Aug, [facility] [address] [id number] [address] [place] [address], [place] [id number] Aug, [facility] [address] [id number] [address] [place] [address], [place] [id number] Aug, [facility] [address] [id number] [address] [place] [address], [place] [id number] Aug, [facility] [address] [id number] [address] [place] [address], [place] [id number] Aug, [facility] [address] [id number] [address] [place] [address], [place] [id number] Aug, [facility] [address] [id number] [address] [place] [address], [place] [id number] Aug, [facility] [address] [id number] [address] [place] [address], [place] [id number] Aug, [facility] [address] [id number] [address] [place] [address], [place] [id number] 18 Aug, 2014 [facility] [address] [id number] [address] [place] [address], [place] [id number] 18 Aug, 2014 [facility] [address] [id number] [address] [place] [address], [place] [id number] 17 Aug, 2014 [facility] [address] [id number] [address] [place] [address], [place] [id number] 17 Aug, 2014 [facility] [address] [id number] [address] [place] [address], [place] [id number] 16 Aug, 2014 [facility] [address] [id number] [address] [place] [address], [place] [id number] 16 Aug, 2014 [facility] [address] [id number] [address] [place] [address], [place] [id number] Aug, [facility] [address] [id number] [address] [place] [address], [place] [address] Aug, [facility] [address] [id number] [address] [place] [address], [place] [id number] 08 Aug, 2014 [facility] [address] [id number] [address] [place] [address], [place] [id number] 08 Aug, 2014 [facility] [address] [id number] [address] [place] [address], [place] [id number] Aug, [facility] [address] [id number] [address] [place] [address], [place] [id number] 05 Aug, 2014 [facility] [address] [id number] [address] [place] [address], [place] [id number] Jul, [facility] [address] [id number] [address] [place] [address], [place] [id number] Jul, [facility] [address] [id number] [address] [place] [address], [place] [id number] Jun, [facility] [address] [id number] [address] [place] [address], [place] [id number] 27 Jun, 2014 [facility] [address] [id number] [address] [place] [address], [place] [id number] 17 Jun, 2014 [facility] [address] [id number] [address] [place] [id number] 17 Jun, 2014 [facility] [address] [id number] [address] [place] [address], [place] [id number] 15 Jun, 2014 [facility] [address] [id number] [address] [place] [address], [place] [id number] 15 Jun, 2014 [facility] [address] [id number] [address] [place] [id number] 14 Jun, 2014 [facility] [address] [id number] [address] [place] [id number] 14 Jun, 2014 [facility] [address] [id number] [address] [place] [address], [place] [address] Jun, [facility] [address] [id number] [address] [place] [address], [place] [address] Jun, [facility] [address] [id number] [address] [place] [address], [place] [address] Jun, [facility] [address] [id number] [address] [place] [address], [place] [id number] Jun, [facility] [address] [id number] [address] [place] [address], [place] [address] Jun, [facility] [address] [id number] [address] [place] [address], [place] [id number] Jun, [facility] [address] [id number] [address] [place] [address], [place] [address] May, [facility] [address] [id number] [address] [place] [address], [place] [address] May, [facility] [address] [id number] [address] [place] [address], [place] [address] May, [facility] [address] [id number] [address] [place] [address], [place] [address] May, 2013 [facility] [address] [id number] [address] [place] [address], [place] [address] May, 2013 [facility] [address] [id number] [address] [place] [address], [place] [id number] 04 May, 2013 [facility] [address] [id number] [address] [place] [address], [place] [address] May, [facility] [address] [id number] [address] [place] [address], [place] [address] May, [facility] [address] [id number] [address] [place] [address], [place] [address] Apr, [facility] [address] [id number] [address] [place] [address] Apr, [facility] [address] [id number] [address] [place] [address] Apr, [facility] [address] [id number] [address] [place] [address] Apr, [facility] [address] [id number] [address] [place] [address] Apr, [facility] [address] [id number] [address] [place] [address] Apr, [facility] [address] [id number] [address] [place] [address], [place] [address] Apr, [facility] [address] [id number] [address] [place] [address], [place] [address] Apr, [facility] [address] [id number] [address] [place] [address], [place] [address] Apr, [facility] [address] [id number] [address] [place] [address], [place] [address] Mar, [facility] [address] [id number] [address] [place] [address], [place] [address] Mar, [facility] [address] [id number] [address] [place] [address], [place] [address] Mar, [facility] [address] [id number] [address] [place] [address], [place] [address] Feb, [facility] [address] [id number] [address] [place] [address], [place] [address] Feb, [facility] [address] [id number] [address] [place] [address], [place] [address] Feb, [facility] [address] [id number] [address] [place] [address], [place] [address] Feb, [facility] [address] [id number] [address] [place] [address], [place] [address] Feb, [facility] [address] [id number] [address] [place] [id number] 17 Feb, 2014 [facility] [address] [id number] [address] [place] [address] Feb, [facility] [address] [id number] [address] [place] [address] Feb, [facility] [address] [id number] [address] [place] [address], [place] [address] Feb, [facility] [address] [id number] [address] [place] [address], [place] [address] Feb, [facility] [address] [id number] [address] [place] [address], [place] [address] Feb, [facility] [address] [id number] [address] [place] [address], [place] [address] Feb, [facility] [address] [id number] [address] [place] [address], [place] [address] Feb, [facility] [address] [id number] [address] [place] [address], [place] [address] Feb, [facility] [address] [id number] [address] [place] [address], [place] [address] Feb, [facility] [address] [id number] [address] [place] [address], [place] [address] Feb, [facility] [address] [id number] [address] [place] [address], [place] [address] January, [facility] [address] [id number] [address] [place] [address], [place] [address] January, [facility] [address] [id number] [address] [place] [address], [place] [address] January, [facility] [address] [id number] [address] [place] [address], [place] [address] January, [facility] [address] [id number] [address] [place] [address], [place] [address] January, [facility] [address] [id number] [address] [place] [address] January, [facility] [address] [id number] [facility] [place] [address] January, [facility] [address] [id number] [address] [place] [address], [place] [address] January, [facility] [address] [id number] [address] [place] [address], [place] [address] January, [facility] [address] [id number] [address] [place] [address], [place] [id number] January, [facility] [address] [id number] [address] [place] [address], [place] [address] January, [facility] [address] [id number] [address] [place] [address], [place] [address] January, [facility] [address] [id number] [address] [place] [address], [place] [address] January, [facility] [address] [id number] [address] [place] [address], [place] [address] January, [facility] [address] [id number] [address] [place] [address], [place] [address] January, [facility] [address] [id number] [address] [place] [address], [place] [address] January, [facility] [address] [id number] [address] [place] [address], [place] [id number] January, [facility] [address] [id number] [address] [place] [address], [place] [address] January, [facility] [address] [id number] [address] [place] [address], [place] [address] January, [facility] [address] [id number] [address] [place] [address], [place] [address] January, [facility] [address] [id number] [address] [place] [address] January, [facility] [address] [id number] [address] [place] [address], [place] [address] January, [facility] [address] [id number] [address] [place] [address], [place] [address] January, [facility] [address] [id number] [address] [place] [address], [place] [address] January, [facility] [address] [id number] [address] [place] [address], [place] [id number] January, [facility] [address] [id number] [address] [place] [address], [place] [address] January, [facility] [address] [id number] [address] [place] [address], [place] [address] Dec, [facility] [address] [id number] [address] [place] [address], [place] [address] Dec, [facility] [address] [id number] [address] [place] [address], [place] [address] Dec, [facility] [address] [id number] [address] [place] [address], [place] [id number] Dec, [facility] [address] [id number] [address] [place] [address], [place] [address] Dec, [facility] [address] [id number] [address] [place] [address], [place] [address] Dec, [facility] [address] [id number] [address] [place] [address], [place] [address] Dec, [facility] [address] [id number] [address] [place] [address], [place] [address] Dec, [facility] [address] [id number] [address] [place] [address], [place] [address] Dec, [facility] [address] [id number] [address] [place] [address], [place] [address] Dec, [facility] [address] [id number] [address] [place] [address] Dec, [facility] [address] [id number] [address] [place] [address], [place] [address] Dec, [facility] [address] [id number] [address] [place] [address], [place] [address] Dec, [facility] [address] [id number] [address] [place] [address], [place] [address] Dec, [facility] [address] [id number] [address] [place] [address], [place] [address] Dec, [facility] [address] [id number] [address] [place] [address], [place] [address] Dec, [facility] [address] [id number] [address] [place] [address], [place] [address] Dec, [facility] [address] [id number] [address] [place] [address], [place] [address] Dec, [facility] [address] [id number] [address] [place] [address], [place] [address] Dec, [facility] [address] [id number] [address] [place] [address], [place] [address] Dec, [facility] [address] [id number] [address] [place] [address], [place] [address] Dec, [facility] [address] [id number] [address] [place] [address], [place] [address] Dec, [facility] [address] [id number] [address] [place] [address], [place] [address] Nov, [facility] [address] [id number] [address] [place] [address], [place] [address] Nov, [facility] [address] [id number] [address] [place] [address], [place] [address] Nov, [facility] [address] [id number] [address] [address] 25 Nov, 2013 [facility] [address] [id number] [address] [address] 24 Nov, 2013 [facility] [address] [id number] [address] [address] 24 Nov, 2013 [facility] [address] [id number] [address] [place] [address], [place] [address] 22 Nov, 2013 [facility] [address] [id number] [address] [place] [address], [place] [id number] 22 Nov, 2013 [facility] [address] [id number] [address] [place] [address], [place] [id number] 18 Nov, 2013 [facility] [address] [id number] [address] [place] [address], [place] [address] 18 Nov, 2013 [facility] [address] [id number] [address] [place] [address], [place] [address] 18 Nov, 2013 [facility] [address] [id number] [address] [place] [address], [place] [id number] 18 Nov, 2013 [facility] [address] [id number] [address] [place] [address], [place] [address] 14 Nov, 2013 [facility] [address] [id number] [address] [place] [address], [place] [address] 14 Nov, 2013 [facility] [address] [id number] [address] [place] [address], [place] [id number] 06 Nov, 2013 [facility] [address] [id number] [address] [place] [address], [place] [address] Nov, [facility] [address] [id number] [address] [place] [address], [place] [address] Oct, [facility] [address] [id number] [address] [place] [address], [place] [address] Oct, [facility] [address] [id number] [address] [place] [address], [place] [address] Oct, [facility] [address] [id number] [address] [place] [address] Oct, [facility] [address] [id number] [address] [place] [address], [place] [address] Oct, [facility] [address] [id number] [address] [place] [address], [place] [address] Oct, [facility] [address] [id number] [address] [place] [address], [place] [address] Oct, [facility] [address] [id number] [address] [place] [address], [place] [address] Oct, [facility] [address] [id number] [address] [place] [address], [place] [address] Oct, [facility] [address] [id number] [address] [place] [address], [place] [address] Oct, [facility] [address] [id number] [address] [place] [address], [place] [address] Oct, [facility] [address] [id number] [address] [place] [address], [place] [address] Oct, [facility] [address] [id number] [address] [place] [address], [place] [address] Oct, [facility] [address] [id number] [address] [place] [address], [place] [address] Oct, [facility] [address] [id number] [address] [place] [address], [place] [address] Oct, [facility] [address] [id number] [address] [place] [address], [place] [address] Sep, [facility] [address] [id number] [address] [place] [address], [place] [address] Sep, [facility] [address] [id number] [address] [place] [address], [place] [address] Sep, [facility] [address] [id number] [address] [place] [address], [place] [address] 15 Sep, 2013 [facility] [address] [id number] [address] [place] [address], [place] [address] Sep, [facility] [address] [id number] [address] [place] [address], [place] [address] Sep, [facility] [address] [id number] [address] [place] [address], [place] [address] Sep, [facility] [address] [id number] [address] [place] [address], [place] [address] Sep, [facility] [address] [id number] [address] [place] [address], [place] [address] Sep, [facility] [address] [id number] [address] [place] [address], [place] [address] Sep, [facility] [address] [id number] [address] [place] [address], [place] [address] Sep, [facility] [address] [id number] [address] [place] [address], [place] [address] Sep, [facility] [address] [id number] [address] [place] [address], [place] [address] Sep, [facility] [address] [id number] [address] [place] [address], [place] [address] Aug, [facility] [address] [id number] [address] [place] [address], [place] [address] Aug, [facility] [address] [id number] [address] [place] [address], [place] [address] Aug, [facility] [address] [id number] [address] [place] [address], [place] [address] Aug, [facility] [address] [id number] [address] [place] [address], [place] [address] 17 Aug, 2013 [facility] [address] [id number] [address] [place] [address], [place] [id number] 17 Aug, 2013 [facility] [address] [id number] [address] [place] [address], [place] [address] 16 Aug, 2013 [facility] [address] [id number] [address] [place] [address], [place] [id number] 16 Aug, 2013 [facility] [address] [id number] [address] [place] [address], [place] [id number] 12 Aug, 2013 [facility] [address] [id number] [address] [place] [address], [place] [id number] 12 Aug, 2013 [facility] [address] [id number] [address] [place] [address], [place] [address] 10 Aug, 2013 [facility] [address] [id number] [address] [place] [address], [place] [id number] 10 Aug, 2013 [facility] [address] [id number] [address] [place] [address], [place] [id number] 02 Aug, 2013 [facility] [address] [id number] [address] [place] [address], [place] [address] 02 Aug, 2013 [facility] [address] [id number] [address] [place] [address], [place] [id number] 19 Jul, 2013 [facility] [address] [id number] [address] [place] [address], [place] [id number] 19 Jul, 2013 [facility] [address] [id number] [address] [place] [address], [place] [id number] 18 Jul, 2013 [facility] [address] [id number] [address] [place] [address], [place] [id number] 18 Jul, 2013 [facility] [address] [id number] [address] [place] [address], [place] [address] 14 Jul, 2013 [facility] [address] [id number] [address] [place] [address], [place] [address] 14 Jul, 2013 [facility] [address] [id number] [address] [place] [address], [place] [id number] 14 Jul, 2013 [facility] [address] [id number] [address] [place] [address], [place] [address] 14 Jul, 2013 [facility] [address] [id number] [address] [place] [address], [place] [address] 07 Jul, 2012 [facility] [address] [id number] [address] [place] [address], [place] [id number] 07 Jul, 2012 [facility] [address] [id number] [address] [place] [address], [place] [id number] 06 Jul, 2012 [facility] [address] [id number] [address] [place] [address], [place] [id number] 06 Jul, 2012 [facility] [address] [id number] [address] [place] [address], [place] [id number] 05 Jul, 2013 [facility] [address] [id number] [address] [place] [address], [place] [id number] 05 Jul, 2013 [facility] [address] [id number] [address] [place] [address], [place] [address] Jun, [facility] [address] [id number] [address] [place] [address], [place] [id number] 23 Jun, 2013 [facility] [address] [id number] [address] [place] [address], [place] [id number] 15 Jun, 2013 [facility] [address] [id number] [address] [place] [address], [place] [id number] 15 Jun, 2013 [facility] [address] [id number] [address] [place] [address], [place] [address] 14 Jun, 2013 [facility] [address] [id number] [address] [place] [address], [place] [id number] 24 May, 2012 [facility] [address] [id number] [address] [place] [address], [place] [id number] 20 May, 2013 [facility] [address] [id number] [address] [place] [address], [place] [id number] 20 May, 2012 [facility] [address] [id number] [address] [place] [address], [place] [address] 20 May, 2012 [facility] [address] [id number] [address] [place] [address], [place] [id number] 19 May, 2012 [facility] [address] [id number] [address] [place] [address], [place] [address] 13 May, 2012 [facility] [address] [id number] [address] [place] [address], [place] [address] 12 May, 2012 [facility] [address] [id number] [address] [place] [address], [place] [id number] 12 May, 2012 [facility] [address] [id number] [address] [place] [address], [place] [id number] 11 May, 2012 [facility] [address] [id number] [address] [place] [address], [place] [id number] 11 May, 2012 [facility] [address] [id number] [address] [place] [address], [place] [id number] 11 May, 2012 [facility] [address] [id number] [address] [place] [address], [place] [id number] 09 May, 2012 [facility] [address] [id number] [address] [place] [address], [place] [id number] 05 May, 2012 [facility] [address] [id number] [address] [place] [address], [place] [id number] 04 May, 2012 [facility] [address] [id number] [address] [place] [address], [place] [id number] 03 May, 2012 [facility] [address] [id number] [address] [place] [address], [place] [id number] Apr, 2012 [facility] [address] [id number] [address] [place] [address], [place] [address] Apr, [facility] [address] [id number] [address] [place] [address], [place] [id number] Apr, 2012 [facility] [address] [id number] [address] [place] [address], [place] [id number] Apr, 2012 [facility] [address] [id number] [address] [place] [address], [place] [id number] Apr, [facility] [address] [id number] [address] [place] [address], [place] [id number] Apr, [facility] [address] [id number] [address] [place] [address], [place] [address] Apr, [facility] [address] [id number] [address] [place] [address], [place] [address] Apr, [facility] [address] [id number] [address] [place] [address], [place] [address] Apr, [facility] [address] [id number] [address] [place] [address], [place] [address] Mar, [facility] [address] [id number] [address] [place] [address], [place] [address] Mar, [facility] [address] [id number] [address] [place] [address], [place] [id number] Mar, [facility] [address] [id number] [address] [place] [address], [place] [id number] Mar, [facility] [address] [id number] [address] [place] [address], [place] [id number] Mar, [facility] [address] [id number] [address] [place] [address], [place] [id number] Mar, [facility] [address] [id number] [address] [place] [address], [place] [id number] Mar, [facility] [address] [id number] [address] [place] [address], [place] [id number] Mar, [facility] [address] [id number] [address] [place] [address], [place] [id number] Mar, [facility] [address] [id number] [address] [place] [address], [place] [id number] Mar, [facility] [address] [id number] [address] [place] [address], [place] [id number] Mar, [facility] [address] [id number] [address] [place] [address], [place] [id number] Feb, [facility] [address] [id number] [address] [place] [address], [place] [id number] Feb, [facility] [address] [id number] [address] [place] [address], [place] [id number] Feb, [facility] [address] [id number] [address] [place] [address], [place] [id number] Feb, [facility] [address] [id number] [address] [place] [address], [place] [id number] Feb, [facility] [address] [id number] [address] [place] [address], [place] [id number] Feb, [facility] [address] [id number] [address] [place] [address], [place] [id number] Feb, [facility] [address] [id number] [address] [place] [address], [place] [id number] Feb, [facility] [address] [id number] [address] [place] [address], [place] [id number] Feb, [facility] [address] [id number] [address] [place] [address], [place] [id number] January, [facility] [address] [id number] [address] [place] [address], [place] [id number] January, [facility] [address] [id number] [address] [place] [address], [place] [id number] January, [facility] [address] [id number] [address] [place] [address], [place] [id number] January, [facility] [address] [id number] [address] [place] [address], [place] [id number] January, [facility] [address] [id number] [address] [place] [address], [place] [id number] January, [facility] [address] [id number] [address] [place] [address], [place] [id number] January, [facility] [address] [id number] [address] [place] [address], [place] [id number] January, [facility] [address] [id number] [address] [place] [address], [place] [id number] January, [facility] [address] [id number] [address] [place] [address], [place] [id number] January, [facility] [address] [id number] [address] [place] [address], [place] [id number] January, [facility] [address] [id number] [address] [place] [address], [place] [id number] January, [facility] [address] [id number] [address] [place] [address], [place] [id number] January, [facility] [address] [id number] [address] [place] [address], [place] [id number] January, [facility] [address] [id number] [address] [place] [address], [place] [id number] January, [facility] [address] [id number] [address] [place] [address], [place] [id number] January, [facility] [address] [id number] [address] [place] [address], [place] [id number] January, [facility] [address] [id number] [address] [place] [address], [place] [id number] January, [facility] [address] [id number] [address] [place] [address], [place] [id number] January, [facility] [address] [id number] [address] [place] [address], [place] [id number] January, [facility] [address] [id number] [address] [place] [address], [place] [id number] January, [facility] [address] [id number] [address] [place] [address], [place] [id number] January, [facility] [address] [id number] [address] [place] [address], [place] [id number] January, [facility] [address] [id number] [address] [place] [address], [place] [id number] Dec, [facility] [address] [id number] [address] [place] [address], [place] [id number] Dec, [facility] [address] [id number] [address] [place] [address], [place] [id number] Dec, [facility] [address] [id number] [address] [place] [address], [place] [id number] Dec, [facility] [address] [id number] [address] [place] [address], [place] [id number] Dec, [facility] [address] [id number] [address] [place] [address], [place] [id number] Nov, [facility] [address] [id number] [address] [place] [address], [place] [id number] Oct, [facility] [address] [id number] [address] [place] [address], [place] [id number] Oct, [facility] [address] [id number] [address] [place] [address], [place] [id number] Oct, [facility] [address] [id number] [address] [place] [address], [place] [id number] Oct, [facility] [address] [id number] [address] [place] [address], [place] [id number] Oct, [facility] [address] [id number] [address] [place] [address], [place] [id number] Sep, [facility] [address] [id number] [address] [place] [address], [place] [id number] Sep, [facility] [address] [id number] [address] [place] [address], [place] [id number] Sep, [facility] [address] [id number] [address] [place] [address], [place] [id number] Aug, [facility] [address] [id number] [address] [place] [address], [place] [id number] Aug, [facility] [address] [id number] [address] [place] [address], [place] [id number] Aug, [facility] [address] [id number] [address] [place] [address], [place] [address] Aug, [facility] [address] [id number] [address] [place] [address], [place] [id number] Jul, [facility] [address] [id number] [address] [place] [address], [place] [id number] Jul, [facility] [address] [id number] [address] [place] [address], [place] [id number] Jul, [facility] [address] [id number] [address] [place] [address], [place] [id number] Jul, [facility] [address] [id number] [address] [place] [address], [place] [id number] Jul, [facility] [address] [id number] [address] [place] [address], [place] [id number] Jul, [facility] [address] [id number] [address] [place] [id number] Jun, [facility] [address] [id number] [address] [place] [id number] Jun, [facility] [address] [id number] [address] [place] [id number] Jun, [facility] [address] [id number] [address] [place] [address], [place] [id number] Jun, [facility] [address] [id number] [address] [place] [id number] Jun, [facility] [address] [id number] [address] [place] [id number] Jun, [facility] [address] [id number] [address] [place] [id number] Jun, [facility] [address] [id number] [address] [place] [address], [place] [id number] Jun, [facility] [address] [id number] [address] [place] [address], [place] [id number] Jun, [facility] [address] [id number] [address] [place] [address], [place] [id number] Jun, [facility] [address] [id number] [address] [place] [address], [place] [id number] 17 May, 2012 [facility] [address] [id number] [address] [place] [address], [place] [id number] 08 May, 2012 [facility] [address] [id number] [address] [place] [address], [place] [id number] 06 May, 2012 [facility] [address] [id number] [address] [place] [address], [place] [id number] 30 Apr, 2012 [facility] [address] [id number] [address] [place] [address], [place] [id number] Apr, [facility] [address] [id number] [address] [place] [address], [place] [id number] Apr, [facility] [address] [id number] [address] [place] [address], [place] [id number] Apr, [facility] [address] [id number] [address] [place] [address], [place] [id number] Apr, [facility] [address] [id number] [address] [place] [address], [place] [id number] Apr, [facility] [address] [id number] [address] [place] [address], [place] [id number] Apr, [facility] [address] [id number] [address] [place] [address], [place] [id number] Apr, [facility] [address] [id number] [address] [place] [address], [place] [address] Apr, [facility] [address] [id number] [address] [place] [address], [place] [address] Mar, [facility] [address] [id number] [address] [place] [address], [place] [id number] Mar, [facility] [address] [id number] [address] [place] [address], [place] [id number] Mar, [facility] [address] [id number] [address] [place] [address], [place] [address] Mar, [facility] [address] [id number] [address] [place] [address], [place] [id number] Feb, [facility] [address] [id number] [address] [place] [address], [place] [id number] Feb, [facility] [address] [id number] [address] [place] [address], [place] [id number] Feb, [facility] [address] [id number] [address] [place] [address], [place] [id number] January, [facility] [address] [id number] [address] [place] [address], [place] [id number] January, [facility] [address] [id number] [address] [place] [address], [place] [address] January, [facility] [address] [id number] [address] [place] [address], [place] [id number] January, [facility] [address] [id number] [address] [place] [address], [place] [id number] January, [facility] [address] [id number] [address] [place] [address], [place] [id number] Dec, [facility] [address] [id number] [address] [place] [address], [place] [id number] Dec, [facility] [address] [id number] [address] [place] [address], [place] [address] Dec, [facility] [address] [id number] [address] [place] [address], [place] [id number] Oct, [facility] [address] [id number] [address] [place] [address], [place] [address] Oct, [facility] [address] [id number] [address] [place] [address], [place] [id number] Oct, [facility] [address] [id number] [address] [place] [address], [place] [id number] Sep, [facility] [address] [id number] [address] [place] [address], [place] [address] Sep, [facility] [address] [id number] [address] [place] [address], [place] [address] Aug, [facility] [address] [id number] [address] [place] [address], [place] [address] Jul, [facility] [address] [id number] [address] [place] [address], [place] [address] Jul, [facility] [address] [id number] [address] [place] [address], [place] [address] Mar, [facility] [address] [id number] [address] [place] [address], [place] [id number] Aug, [facility] [address] [id number] [address] [place] [address], [place] [address] Jul, [facility] [address] [id number] [address] [place] [id number] Jul, [facility] [address] [id number] [address] [place] [id number] Jul, [facility] [address] [id number] [address] [place] [address], [place] [id number] Jul, [facility] [address] [id number] [address] [place] [id number] 14 Jun, 2010 [facility] [address] [id number] [address] [place] [address], [place] [address] Jun, [facility] [address] [id number] [address] [place] [id number] Apr, [facility] [place] [address] [id number] [address] [place] [id number] Aug, [facility] [place] [address] [id number] [address] [place] [id number] Jul, [facility] [place] [address] [id number] [address] [place] [id number] Jul, [facility] [place] [address] [id number] [address] [place] [id number] Jul, [facility] [place] [address] [id number] [address] [place] [id number] Jun, [facility] [place] [address] [id number] [address] [place] [id number] May, [facility] [place] [address] [id number] [address] [place] [id number] 14 Dec, 2008 [facility] [place] [address] [id number] [address] [place] [id number] Nov, [facility] [place] [address] [id number] [address] [place] [id number] Oct, [facility] [place] [address] [id number] [address] [place] [id number] 05 Aug, 2008 [facility] [place] [address] [id number] [address] [place] [id number] Aug, [facility] [place] [address] [id number] [address] [place] [id number] Jun, IMMUNIZATIONS No Known Immunizations SOCIAL HISTORY Never Assessed REASON FOR VISIT PLAN OF CARE VITAL SIGNS Height 66 in 2014-07-08 Weight 335.1 lbs 2014-07-08 Temperature 97.2 degrees Fahrenheit 2014-07-08 Heart Rate 92 bpm 2014-07-08 Respiratory Rate 26 2014-07-08 Blood pressure systolic 136 mmHg 2014-07-08 Blood pressure diastolic 64 mmHg 2014-07-08 MEDICATIONS Unknown Medications RESULTS No Results PROCEDURES [...] x 3 day s 04/2012 Hospitalization History [facility]- Right wrist injury 03/29/2018
--- OUTSIDE RECORDS SUMMARY | 2020-04-09 00:16 | XMS REPORT ---
Author Author Kateryna UMANZOR Organization [facility] Address [address] [place] [address] Care Team Providers Care Designer Name Role Phone ZENA UMANZOR Unavailable PROBLEMS Type Condition ICD9-CM Code PWH19-ST Code Onset Dates Condition S tatus SNOMED Code Problem Irregular menses N92.6 Active 801 48578 Problem Migraine with aura and without status migrainosu s, not intractable G43.109 Active 9160640 Problem Uncontrolled type 2 diabetes mellitus with hyperglycemia E11.65 Active 643961384 Problem Morbid obesity due to excess calories E66.01 Active 128306527 Problem RLS (restless legs syndrome) G25.81 A ctive 07610417 Problem Morbid obesity E66.01 Active 56303 6002 ALLERGIES No Information ENCOUNTERS Encounter Location Date Diagnosis [facility] [address] [facility] [place] [id number] [address] [place] [address] 07 Dec, 2019 [facility] [address] [facility] [place] [id number] [address] [place] [address] 06 Dec, 2019 [facility] [address] [facility] [place] [id number] [address] [place] [address] Dec, [facility] [address] [facility] [place] [id number] [address] [place] [address] 30 Nov, 2019 [facility] [address] [facility] [place] [id number] [address] [place] [address] Nov, [facility] [address] [facility] [place] [id number] [address] [place] [address] Nov, [facility] [address] [facility] [place] [id number] [address] [place] [address] Nov, RLS (restless legs syndrome) G25.81 [facility] [address] [facility] [place] [id number] [address] [place] [address] 15 Oct, 2019 [facility] [address] [id number] [address] [place] [address] 09 Oct, 2019 Influenza J11.1 [facility] [address] [id number] [address] [place] [address] 16 Sep, 2019 [facility] [address] [id number] [address] [place] [address] 14 Sep, 2019 [facility] [address] [id number] [address] [place] [address] 14 Sep, 2019 [facility] [address] [id number] [address] [place] [address] 13 Sep, 2019 [facility] [address] [id number] [address] [place] [address] 10 Sep, 2019 Pneumonia of left lower lobe due to infectious organism J18.9 and Migraine with aura and without status migrainosus, not intractable G43.109 [facility] [address] [id number] [address] [place] [address] 10 Sep, 2019 [facility] [address] [id number] [address] [place] [address] Sep, [facility] [address] [id number] [address] [place] [address] 08 Sep, 2019 [facility] [address] [id number] [address] [place] [address] 08 Sep, 2019 [facility] [address] [id number] [address] [place] [address] 08 Sep, 2019 Pneumonia of left lower lobe due to infectious organism J18.9 and Migraine with aura and without status migrainosus, not intractable G43.109 [facility] [address] [id number] [address] [place] [address] 31 Aug, 2019 Irregular menses N92.6 ; Wel l woman exam Z01.419 ; Pelvic cramping R10.2 and Left breast lump N63.20 [facility] [address] [id number] [address] [place] [address] Aug, [facility] [address] [facility] [place] [id number] [address] [place] [address] Aug, Well woman exam Z01.419 ; Le ft breast lump N63.20 ; Irregular menses N92.6 ; Encounter for immunization Z23 ; Pelvic cramping R10.2 and Screening for cervical cancer Z12.4 [facility] [address] [id number] [address] [place] [address] Aug, [facility] [address] [id number] [address] [place] [address] Aug, [facility] [address] [facility] [place] [id number] [address] [place] [address] Aug, [facility] [address] [facility] [place] [id number] [address] [place] [address] Jul, [facility] [address] [facility] [place] [id number] [address] [place] [address] Jun, [facility] [address] [facility] [place] [id number] [address] [place] [address] Jun, [facility] [address] [facility] [place] [id number] [address] [place] [address] Jun, [facility] [address] [facility] [place] [id number] [address] [place] [address] Jun, BMI 50.0-59.9, adult Z68.43 [facility] [address] [facility] [place] [id number] [address] [place] [address] Jun, [facility] [address] [facility] [place] [id number] [address] [place] [address] May, Acute non-recurrent sinusiti s, unspecified location J01.90 ; Diarrhea, unspecified R19.7 ; Vomiting, unspecified R11.10 and Morbid obesity E66.01 [facility] [address] [id number] [address] [place] [address] Apr, [place] [address] [id number] [address] [place] [address] Apr, Anemia due to other cause, n ot classified D64.89 and D-dimer, elevated R79.89 [place] [address] [id number] [address] [place] [address] Apr, [place] [address] [id number] [address] [place] [address] Apr, [place] [address] [id number] [address] [place] [address] Mar, Anemia due to other cause, n ot classified D64.89 and D-dimer, elevated R79.89 [place] [address] [facility] [place] [id number] [address] [place] [address] Mar, Leg edema, right R60.0 ; Hig h risk medication use Z79.899 and Morbid obesity E66.01 [place] [address] [place] [id number] [address] [place] [address] Mar, BMI 50.0-59.9, adult Z68.43 [place] [address] [facility] [place] [id number] [address] [place] [address] Mar, [place] [address] [place] [id number] [address] [place] [address] January, Uncontrolled type 2 diabetes mellitus with hyperglycemia E11.65 ; RLS (restless legs syndrome) G25.81 and Morbid obesity E66.01 [place] [address] [facility] [place] [id number] [address] [place] [address] Oct, Lipoma of right lower extrem ity D17.23 [place] [address] [facility] [place] [id number] [address] [place] [address] 05 Oct, 2018 Lipoma of right lower extrem ity D17.23 [place] [address] [facility] [place] [id number] [address] [place] [address] Sep, [facility] [address] [id number] [address] [place] [address] Sep, [facility] [address] [facility] [place] [id number] [address] [place] [address] Sep, [facility] [address] [facility] [place] [id number] [address] [place] [address] Sep, [facility] [address] [facility] [place] [id number] [address] [place] [address] Sep, [facility] [address] [facility] [place] [id number] [address] [place] [address] Aug, Uncontrolled type 2 diabetes mellitus with hyperglycemia E11.65 ; Morbid obesity due to excess calories E66.01 ; Lipoma of torso D17.1 and BMI 50.0-59.9, adult Z68.43 [facility] [address] [facility] [place] [id number] [address] [place] [address] Jun, Encounter for immunization Z 23 [facility] [address] [id number] [address] [place] [address] Jul, [facility] [address] [facility] [place] [id number] [address] [place] [address] Jun, Encounter for immunization Z 23 [facility] [address] [id number] [address] [place] [address] May, [facility] [address] [facility] [place] [id number] [address] [place] [address] Jun, Encounter for immunization Z 23 [facility] [address] [id number] [address] [place] [address] May, [facility] [address] [facility] [place] [id number] [address] [place] [address] May, [facility] [address] [facility] [place] [id number] [address] [place] [address] Apr, [facility] [address] [id number] [address] [place] [address], [place] [address] Feb, [facility] [address] [id number] [address] [place] [address], [place] [address] Feb, [facility] [address] [id number] [address] [place] [address], [place] [address] Feb, [facility] [address] [id number] [address] [place] [address], [place] [address] January, [facility] [address] [id number] [address] [place] [address], [place] [address] January, [facility] [address] [id number] [address] [place] [address], [place] [address] Dec, [facility] [address] [id number] [address] [place] [address], [place] [address] Dec, [facility] [address] [id number] [address] [place] [address], [place] [address] Nov, [facility] [address] [id number] [address] [place] [address], [place] [address] Nov, [facility] [address] [id number] [address] [place] [address], [place] [address] Nov, [facility] [address] [id number] [address] [place] [address], [place] [address] Nov, [facility] [address] [id number] [address] [place] [address], [place] [address] Nov, [facility] [address] [id number] [address] [place] [address], [place] [address] Nov, [facility] [address] [id number] [address] [place] [address], [place] [address] Nov, [facility] [address] [id number] [address] [place] [address], [place] [address] 18 Oct, 2014 [facility] [address] [id number] [address] [place] [address], [place] [address] Oct, [facility] [address] [id number] [address] [place] [address], [place] [address] Oct, [facility] [address] [id number] [address] [place] [address], [place] [address] Oct, [facility] [address] [id number] [address] [place] [address], [place] [address] Oct, [facility] [address] [id number] [address] [place] [address], [place] [address] Sep, [facility] [address] [id number] [address] [place] [address], [place] [address] Sep, [facility] [address] [id number] [address] [place] [address], [place] [address] Sep, [facility] [address] [id number] [address] [place] [address], [place] [address] Sep, [facility] [address] [id number] [address] [place] [address], [place] [address] Sep, [facility] [address] [id number] [address] [place] [address], [place] [address] Sep, [facility] [address] [id number] [address] [place] [address], [place] [address] Sep, [facility] [address] [id number] [address] [place] [address], [place] [address] Sep, [facility] [address] [id number] [address] [place] [address], [place] [address] Sep, [facility] [address] [id number] [address] [place] [address], [place] [address] Sep, [facility] [address] [id number] [address] [place] [address], [place] [address] Aug, [facility] [address] [id number] [address] [place] [address], [place] [address] Aug, [facility] [address] [id number] [address] [place] [address], [place] [address] 31 Aug, 2014 [facility] [address] [id number] [address] [place] [address], [place] [address] Aug, [facility] [address] [id number] [address] [place] [address], [place] [address] Aug, [facility] [address] [id number] [address] [place] [address], [place] [address] Aug, [facility] [address] [id number] [address] [place] [address], [place] [address] Aug, [facility] [address] [id number] [address] [place] [address], [place] [address] Aug, [facility] [address] [id number] [address] [place] [address], [place] [address] Aug, [facility] [address] [id number] [address] [place] [address], [place] [address] Aug, [facility] [address] [id number] [address] [place] [address], [place] [address] Aug, [facility] [address] [id number] [address] [place] [address], [place] [address] Aug, [facility] [address] [id number] [address] [place] [address], [place] [address] 18 Aug, 2014 [facility] [address] [id number] [address] [place] [address], [place] [address] 18 Aug, 2014 [facility] [address] [id number] [address] [place] [address], [place] [address] 17 Aug, 2014 [facility] [address] [id number] [address] [place] [address], [place] [address] 17 Aug, 2014 [facility] [address] [id number] [address] [place] [address], [place] [address] 16 Aug, 2014 [facility] [address] [id number] [address] [place] [address], [place] [address] 16 Aug, 2014 [facility] [address] [id number] [address] [place] [address], [place] [address] Aug, [facility] [address] [id number] [address] [place] [address], [place] [address] Aug, [facility] [address] [id number] [address] [place] [address], [place] [address] 08 Aug, 2014 [facility] [address] [id number] [address] [place] [address], [place] [address] 08 Aug, 2014 [facility] [address] [id number] [address] [place] [address], [place] [address] Aug, [facility] [address] [id number] [address] [place] [address], [place] [address] 05 Aug, 2014 [facility] [address] [id number] [address] [place] [address], [place] [address] Jul, [facility] [address] [id number] [address] [place] [address], [place] [address] Jul, [facility] [address] [id number] [address] [place] [address], [place] [address] Jun, [facility] [address] [id number] [address] [place] [address], [place] [address] 27 Jun, 2014 [facility] [address] [id number] [address] [place] [address], [place] [address] 17 Jun, 2014 [facility] [address] [id number] [address] [place] [address] 17 Jun, 2014 [facility] [address] [id number] [address] [place] [address], [place] [address] 15 Jun, 2014 [facility] [address] [id number] [address] [place] [address], [place] [address] 15 Jun, 2014 [facility] [address] [id number] [address] [place] [address] 14 Jun, 2014 [facility] [address] [id number] [address] [place] [address] 14 Jun, 2014 [facility] [address] [id number] [address] [place] [address], [place] [address] Jun, [facility] [address] [id number] [address] [place] [address], [place] [address] Jun, [facility] [address] [id number] [address] [place] [address], [place] [address] Jun, [facility] [address] [id number] [address] [place] [address], [place] [address] Jun, [facility] [address] [id number] [address] [place] [address], [place] [address] Jun, [facility] [address] [id number] [address] [place] [address], [place] [address] Jun, [facility] [address] [id number] [address] [place] [address], [place] [address] May, [facility] [address] [id number] [address] [place] [address], [place] [address] May, [facility] [address] [id number] [address] [place] [address], [place] [address] May, [facility] [address] [id number] [address] [place] [address], [place] [address] May, 2013 [facility] [address] [id number] [address] [place] [address], [place] [address] May, 2013 [facility] [address] [id number] [address] [place] [address], [place] [address] 04 May, 2013 [facility] [address] [id number] [address] [place] [address], [place] [address] May, [facility] [address] [id number] [address] [place] [address], [place] [address] May, [facility] [address] [id number] [address] [place] [address], [place] [address] Apr, [facility] [address] [id number] [facility] [place] [address] Apr, [facility] [address] [id number] [facility] [place] [address] Apr, [facility] [address] [id number] [facility] [place] [address] Apr, [facility] [address] [id number] [facility] [place] [address] Apr, [facility] [address] [id number] [facility] [place] [address] Apr, [facility] [address] [id number] [address] [place] [address], [place] [address] Apr, [facility] [address] [id number] [address] [place] [address], [place] [address] Apr, [facility] [address] [id number] [address] [place] [address], [place] [address] Apr, [facility] [address] [id number] [address] [place] [address], [place] [address] Mar, [facility] [address] [id number] [address] [place] [address], [place] [address] Mar, [facility] [address] [id number] [address] [place] [address], [place] [address] Mar, [facility] [address] [id number] [address] [place] [address], [place] [address] Feb, [facility] [address] [id number] [address] [place] [address], [place] [address] Feb, [facility] [address] [id number] [address] [place] [address], [place] [address] Feb, [facility] [address] [id number] [address] [place] [address], [place] [address] Feb, [facility] [address] [id number] [address] [place] [address], [place] [address] Feb, [facility] [address] [id number] [address] [place] [id number] 17 Feb, 2014 [facility] [address] [id number] [address] [place] [address] Feb, [facility] [address] [id number] [address] [place] [address] Feb, [facility] [address] [id number] [address] [place] [id number], [place] [address] Feb, [facility] [address] [id number] [address] [place] [id number], [place] [address] Feb, [facility] [address] [id number] [address] [place] [id number], [place] [address] Feb, [facility] [address] [id number] [address] [place] [id number], [place] [address] Feb, [facility] [address] [id number] [address] [place] [id number], [place] [id number] Feb, [facility] [address] [id number] [address] [place] [id number], [place] [address] Feb, [facility] [address] [id number] [address] [place] [id number], [place] [address] Feb, [facility] [address] [id number] [address] [place] [id number], [place] [address] Feb, [facility] [address] [id number] [address] [place] [id number], [place] [address] January, [facility] [address] [id number] [address] [place] [id number], [place] [address] January, [facility] [address] [id number] [address] [place] [id number], [place] [address] January, [facility] [address] [id number] [address] [place] [id number], [place] [address] January, [facility] [address] [id number] [address] [place] [id number], [place] [address] January, [facility] [address] [id number] [address] [place] [address] January, [facility] [address] [id number] [address] [place] [address] January, [facility] [address] [id number] [address] [place] [id number], [place] [address] January, [facility] [address] [id number] [address] [place] [id number], [place] [address] January, [facility] [address] [id number] [address] [place] [id number], [place] [address] January, [facility] [address] [id number] [address] [place] [id number], [place] [address] January, [facility] [address] [id number] [address] [place] [id number], [place] [address] January, [facility] [address] [id number] [address] [place] [id number], [place] [address] January, [facility] [address] [id number] [address] [place] [id number], [place] [address] January, [facility] [address] [id number] [address] [place] [id number], [place] [address] January, [facility] [address] [id number] [address] [place] [id number], [place] [address] January, [facility] [address] [id number] [address] [place] [id number], [place] [address] January, [facility] [address] [id number] [address] [place] [id number], [place] [address] January, [facility] [address] [id number] [address] [place] [id number], [place] [address] January, [facility] [address] [id number] [address] [place] [id number], [place] [address] January, [facility] [address] [id number] [address] [place] [address] January, [facility] [address] [id number] [address] [place] [address], [place] [address] January, [facility] [address] [id number] [address] [place] [address], [place] [address] January, [facility] [address] [id number] [address] [place] [address], [place] [address] January, [facility] [address] [id number] [address] [place] [address], [place] [address] January, [facility] [address] [id number] [address] [place] [address], [place] [address] January, [facility] [address] [id number] [address] [place] [address], [place] [address] Dec, [facility] [address] [id number] [address] [place] [address], [place] [address] Dec, [facility] [address] [id number] [address] [place] [address], [place] [address] Dec, [facility] [address] [id number] [address] [place] [address], [place] [address] Dec, [facility] [address] [id number] [address] [place] [address], [place] [address] Dec, [facility] [address] [id number] [address] [place] [address], [place] [address] Dec, [facility] [address] [id number] [address] [place] [address], [place] [address] Dec, [facility] [address] [id number] [address] [place] [address], [place] [address] Dec, [facility] [address] [id number] [address] [place] [address], [place] [address] Dec, [facility] [address] [id number] [address] [place] [address], [place] [address] Dec, [facility] [address] [id number] [address] [place] [address] Dec, [facility] [address] [id number] [address] [place] [address], [place] [address] Dec, [facility] [address] [id number] [address] [place] [address], [place] [address] Dec, [facility] [address] [id number] [address] [place] [address], [place] [address] Dec, [facility] [address] [id number] [address] [place] [address], [place] [address] Dec, [facility] [address] [id number] [address] [place] [address], [place] [address] Dec, [facility] [address] [id number] [address] [place] [address], [place] [address] Dec, [facility] [address] [id number] [address] [place] [address], [place] [address] Dec, [facility] [address] [id number] [address] [place] [address], [place] [address] Dec, [facility] [address] [id number] [address] [place] [address], [place] [address] Dec, [facility] [address] [id number] [address] [place] [address], [place] [address] Dec, [facility] [address] [id number] [address] [place] [address], [place] [address] Dec, [facility] [address] [id number] [address] [place] [address], [place] [address] Nov, [facility] [address] [id number] [address] [place] [address], [place] [address] Nov, [facility] [address] [id number] [address] [place] [address], [place] [address] Nov, [facility] [address] [id number] [address] [place] [address] 25 Nov, 2013 [facility] [address] [id number] [address] [place] [address] 24 Nov, 2013 [facility] [address] [id number] [address] [place] [address] 24 Nov, 2013 [facility] [address] [id number] [address] [place] [address], [place] [address] 22 Nov, 2013 [facility] [address] [id number] [address] [place] [address], [place] [address] 22 Nov, 2013 [facility] [address] [id number] [address] [place] [address], [place] [address] 18 Nov, 2013 [facility] [address] [id number] [address] [place] [address], [place] [address] 18 Nov, 2013 [facility] [address] [id number] [address] [place] [address], [place] [address] 18 Nov, 2013 [facility] [address] [id number] [address] [place] [address], [place] [address] 18 Nov, 2013 [facility] [address] [id number] [address] [place] [address], [place] [address] 14 Nov, 2013 [facility] [address] [id number] [address] [place] [address], [place] [address] 14 Nov, 2013 [facility] [address] [id number] [address] [place] [address], [place] [address] 06 Nov, 2013 [facility] [address] [id number] [address] [place] [address], [place] [address] Nov, [facility] [address] [id number] [address] [place] [address], [place] [address] Oct, [facility] [address] [id number] [address] [place] [address], [place] [address] Oct, [facility] [address] [id number] [address] [place] [address], [place] [address] Oct, [facility] [address] [id number] [address] [place] [address] Oct, [facility] [address] [id number] [address] [place] [address], [place] [address] Oct, [facility] [address] [id number] [address] [place] [address], [place] [address] Oct, [facility] [address] [id number] [address] [place] [address], [place] [address] Oct, [facility] [address] [id number] [address] [place] [address], [place] [address] Oct, [facility] [address] [id number] [address] [place] [address], [place] [address] Oct, [facility] [address] [id number] [address] [place] [address], [place] [address] Oct, [facility] [address] [id number] [address] [place] [address], [place] [address] Oct, [facility] [address] [id number] [address] [place] [address], [place] [address] Oct, [facility] [address] [id number] [address] [place] [address], [place] [address] Oct, [facility] [address] [id number] [address] [place] [address], [place] [address] Oct, [facility] [address] [id number] [address] [place] [address], [place] [address] Oct, [facility] [address] [id number] [address] [place] [address], [place] [address] Sep, [facility] [address] [id number] [address] [place] [address], [place] [address] Sep, [facility] [address] [id number] [address] [place] [address], [place] [address] Sep, [facility] [address] [id number] [address] [place] [address], [place] [address] 15 Sep, 2013 [facility] [address] [id number] [address] [place] [address], [place] [address] Sep, [facility] [address] [id number] [address] [place] [address], [place] [address] Sep, [facility] [address] [id number] [address] [place] [address], [place] [address] Sep, [facility] [address] [id number] [address] [place] [address], [place] [address] Sep, [facility] [address] [id number] [address] [place] [address], [place] [address] Sep, [facility] [address] [id number] [address] [place] [address], [place] [address] Sep, [facility] [address] [id number] [address] [place] [address], [place] [address] Sep, [facility] [address] [id number] [address] [place] [address], [place] [address] Sep, [facility] [address] [id number] [address] [place] [address], [place] [address] Sep, [facility] [address] [id number] [address] [place] [address], [place] [address] Aug, [facility] [address] [id number] [address] [place] [address], [place] [address] Aug, [facility] [address] [id number] [address] [place] [address], [place] [address] Aug, [facility] [address] [id number] [address] [place] [address], [place] [address] Aug, [facility] [address] [id number] [address] [place] [address], [place] [address] 17 Aug, 2013 [facility] [address] [id number] [address] [place] [address], [place] [address] 17 Aug, 2013 [facility] [address] [id number] [address] [place] [address], [place] [address] 16 Aug, 2013 [facility] [address] [id number] [address] [place] [address], [place] [address] 16 Aug, 2013 [facility] [address] [id number] [address] [place] [address], [place] [address] 12 Aug, 2013 [facility] [address] [id number] [address] [place] [address], [place] [address] 12 Aug, 2013 [facility] [address] [id number] [address] [place] [address], [place] [address] 10 Aug, 2013 [facility] [address] [id number] [address] [place] [address], [place] [address] 10 Aug, 2013 [facility] [address] [id number] [address] [place] [address], [place] [address] 02 Aug, 2013 [facility] [address] [id number] [address] [place] [address], [place] [address] 02 Aug, 2013 [facility] [address] [id number] [address] [place] [address], [place] [address] 19 Jul, 2013 [facility] [address] [id number] [address] [place] [address], [place] [address] 19 Jul, 2013 [facility] [address] [id number] [address] [place] [address], [place] [address] 18 Jul, 2013 [facility] [address] [id number] [address] [place] [address], [place] [address] 18 Jul, 2013 [facility] [address] [id number] [address] [place] [address], [place] [address] 14 Jul, 2013 [facility] [address] [id number] [address] [place] [address], [place] [address] 14 Jul, 2013 [facility] [address] [id number] [address] [place] [address], [place] [address] 14 Jul, 2013 [facility] [address] [id number] [address] [place] [address], [place] [address] 14 Jul, 2013 [facility] [address] [id number] [address] [place] [address], [place] [address] 07 Jul, 2012 [facility] [address] [id number] [address] [place] [address], [place] [address] 07 Jul, 2012 [facility] [address] [id number] [address] [place] [address], [place] [address] 06 Jul, 2012 [facility] [address] [id number] [address] [place] [address], [place] [address] 06 Jul, 2012 [facility] [address] [id number] [address] [place] [address], [place] [address] 05 Jul, 2013 [facility] [address] [id number] [address] [place] [address], [place] [address] 05 Jul, 2013 [facility] [address] [id number] [address] [place] [address], [place] [address] Jun, [facility] [address] [id number] [address] [place] [address], [place] [address] 23 Jun, 2013 [facility] [address] [id number] [address] [place] [address], [place] [address] 15 Jun, 2013 [facility] [address] [id number] [address] [place] [address], [place] [address] 15 Jun, 2013 [facility] [address] [id number] [address] [place] [address], [place] [address] 14 Jun, 2013 [facility] [address] [id number] [address] [place] [address], [place] [address] 24 May, 2012 [facility] [address] [id number] [address] [place] [address], [place] [address] 20 May, 2013 [facility] [address] [id number] [address] [place] [address], [place] [address] 20 May, 2012 [facility] [address] [id number] [address] [place] [address], [place] [address] 20 May, 2012 [facility] [address] [id number] [address] [place] [address], [place] [address] 19 May, 2012 [facility] [address] [id number] [address] [place] [address], [place] [address] 13 May, 2012 [facility] [address] [id number] [address] [place] [address], [place] [address] 12 May, 2012 [facility] [address] [id number] [address] [place] [address], [place] [address] 12 May, 2012 [facility] [address] [id number] [address] [place] [address], [place] [address] 11 May, 2012 [facility] [address] [id number] [address] [place] [address], [place] [address] 11 May, 2012 [facility] [address] [id number] [address] [place] [address], [place] [address] 11 May, 2012 [facility] [address] [id number] [address] [place] [address], [place] [address] 09 May, 2012 [facility] [address] [id number] [address] [place] [address], [place] [address] 05 May, 2012 [facility] [address] [id number] [address] [place] [address], [place] [address] 04 May, 2012 [facility] [address] [id number] [address] [place] [address], [place] [address] 03 May, 2012 [facility] [address] [id number] [address] [place] [address], [place] [address] Apr, 2012 [facility] [address] [id number] [address] [place] [address], [place] [address] Apr, [facility] [address] [id number] [address] [place] [address], [place] [address] Apr, 2012 [facility] [address] [id number] [address] [place] [address], [place] [address] Apr, 2012 [facility] [address] [id number] [address] [place] [address], [place] [address] Apr, [facility] [address] [id number] [address] [place] [address], [place] [address] Apr, [facility] [address] [id number] [address] [place] [address], [place] [address] Apr, [facility] [address] [id number] [address] [place] [address], [place] [address] Apr, [facility] [address] [id number] [address] [place] [address], [place] [address] Apr, [facility] [address] [id number] [address] [place] [address], [place] [address] Mar, [facility] [address] [id number] [address] [place] [address], [place] [address] Mar, [facility] [address] [id number] [address] [place] [address], [place] [address] Mar, [facility] [address] [id number] [address] [place] [address], [place] [address] Mar, [facility] [address] [id number] [address] [place] [address], [place] [address] Mar, [facility] [address] [id number] [address] [place] [address], [place] [address] Mar, [facility] [address] [id number] [address] [place] [address], [place] [address] Mar, [facility] [address] [id number] [address] [place] [address], [place] [address] Mar, [facility] [address] [id number] [address] [place] [address], [place] [address] Mar, [facility] [address] [id number] [address] [place] [address], [place] [address] Mar, [facility] [address] [id number] [address] [place] [address], [place] [address] Mar, [facility] [address] [id number] [address] [place] [address], [place] [address] Feb, [facility] [address] [id number] [address] [place] [address], [place] [address] Feb, [facility] [address] [id number] [address] [place] [address], [place] [address] Feb, [facility] [address] [id number] [address] [place] [address], [place] [address] Feb, [facility] [address] [id number] [address] [place] [address], [place] [address] Feb, [facility] [address] [id number] [address] [place] [address], [place] [address] Feb, [facility] [address] [id number] [address] [place] [address], [place] [address] Feb, [facility] [address] [id number] [address] [place] [address], [place] [address] Feb, [facility] [address] [id number] [address] [place] [address], [place] [address] Feb, [facility] [address] [id number] [address] [place] [address], [place] [address] January, [facility] [address] [id number] [address] [place] [address], [place] [address] January, [facility] [address] [id number] [address] [place] [address], [place] [address] January, [facility] [address] [id number] [address] [place] [address], [place] [address] January, [facility] [address] [id number] [address] [place] [address], [place] [address] January, [facility] [address] [id number] [address] [place] [address], [place] [address] January, [facility] [address] [id number] [address] [place] [address], [place] [address] January, [facility] [address] [id number] [address] [place] [address], [place] [address] January, [facility] [address] [id number] [address] [place] [address], [place] [address] January, [facility] [address] [id number] [address] [place] [address], [place] [address] January, [facility] [address] [id number] [address] [place] [address], [place] [address] January, [facility] [address] [id number] [address] [place] [id number], [place] [address] January, [facility] [address] [id number] [address] [place] [id number], [place] [address] January, [facility] [address] [id number] [address] [place] [id number], [place] [address] January, [facility] [address] [id number] [address] [place] [id number], [place] [address] January, [facility] [address] [id number] [address] [place] [id number], [place] [address] January, [facility] [address] [id number] [address] [place] [id number], [place] [address] January, [facility] [address] [id number] [address] [place] [id number], [place] [address] January, [facility] [address] [id number] [address] [place] [id number], [place] [address] January, [facility] [address] [id number] [address] [place] [address], [place] [address] January, [facility] [address] [id number] [address] [place] [address], [place] [address] January, [facility] [address] [id number] [address] [place] [id number], [place] [address] January, [facility] [address] [id number] [address] [place] [address], [place] [address] January, [facility] [address] [id number] [address] [place] [address], [place] [address] Dec, [facility] [address] [id number] [address] [place] [address], [place] [address] Dec, [facility] [address] [id number] [address] [place] [address], [place] [address] Dec, [facility] [address] [id number] [address] [place] [address], [place] [address] Dec, [facility] [address] [id number] [address] [place] [address], [place] [address] Dec, [facility] [address] [id number] [address] [place] [address], [place] [address] Nov, [facility] [address] [id number] [address] [place] [address], [place] [address] Oct, [facility] [address] [id number] [address] [place] [address], [place] [address] Oct, [facility] [address] [id number] [address] [place] [address], [place] [address] Oct, [facility] [address] [id number] [address] [place] [address], [place] [address] Oct, [facility] [address] [id number] [address] [place] [address], [place] [address] Oct, [facility] [address] [id number] [address] [place] [address], [place] [address] Sep, [facility] [address] [id number] [address] [place] [address], [place] [address] Sep, [facility] [address] [id number] [address] [place] [address], [place] [address] Sep, [facility] [address] [id number] [address] [place] [address], [place] [address] Aug, [facility] [address] [id number] [address] [place] [address], [place] [address] Aug, [facility] [address] [id number] [address] [place] [address], [place] [address] Aug, [facility] [address] [id number] [address] [place] [address], [place] [address] Aug, [facility] [address] [id number] [address] [place] [address], [place] [address] Jul, [facility] [address] [id number] [address] [place] [address], [place] [address] Jul, [facility] [address] [id number] [address] [place] [address], [place] [address] Jul, [facility] [address] [id number] [address] [place] [address], [place] [address] Jul, [facility] [address] [id number] [address] [place] [address], [place] [address] Jul, [facility] [address] [id number] [address] [place] [address], [place] [address] Jul, [facility] [address] [id number] [address] [place] [id number] Jun, [facility] [address] [id number] [address] [place] [id number] Jun, [facility] [address] [id number] [address] [place] [address] Jun, [facility] [address] [id number] [address] [place] [address], [place] [address] Jun, [facility] [address] [id number] [address] [place] [address] Jun, [facility] [address] [id number] [address] [place] [address] Jun, [facility] [address] [id number] [address] [place] [address] Jun, [facility] [address] [id number] [address] [place] [address], [place] [address] Jun, [facility] [address] [id number] [address] [place] [address], [place] [address] Jun, [facility] [address] [id number] [address] [place] [id number], [place] [id number] Jun, [facility] [address] [id number] [address] [place] [id number], [place] [id number] 17 May, 2012 [facility] [address] [id number] [address] [place] [id number], [place] [id number] 08 May, 2012 [facility] [address] [id number] [address] [place] [id number], [place] [id number] 06 May, 2012 [facility] [address] [id number] [address] [place] [id number], [place] [id number] 30 Apr, 2012 [facility] [address] [id number] [address] [place] [id number], [place] [address] Apr, [facility] [address] [id number] [address] [place] [id number], [place] [id number] Apr, [facility] [address] [id number] [address] [place] [id number], [place] [address] Apr, [facility] [address] [id number] [address] [place] [id number], [place] [address] Apr, [facility] [address] [id number] [address] [place] [id number], [place] [id number] Apr, [facility] [address] [id number] [address] [place] [id number], [place] [address] Apr, [facility] [address] [id number] [address] [place] [id number], [place] [address] Apr, [facility] [address] [id number] [address] [place] [id number], [place] [id number] Apr, [facility] [address] [id number] [address] [place] [id number], [place] [address] Mar, [facility] [address] [id number] [address] [place] [id number], [place] [address] Mar, [facility] [address] [id number] [address] [place] [id number], [place] [address] Mar, [facility] [address] [id number] [address] [place] [id number], [place] [address] Mar, [facility] [address] [id number] [address] [place] [id number], [place] [address] Feb, [facility] [address] [id number] [address] [place] [id number], [place] [id number] Feb, [facility] [address] [id number] [address] [place] [id number], [place] [id number] Feb, [facility] [address] [id number] [address] [place] [id number], [place] [address] January, [facility] [address] [id number] [address] [place] [id number], [place] [id number] January, [facility] [address] [id number] [address] [place] [address], [place] [address] January, [facility] [address] [id number] [address] [place] [address], [place] [address] January, [facility] [address] [id number] [address] [place] [address], [place] [id number] January, [facility] [address] [id number] [address] [place] [address], [place] [id number] Dec, [facility] [address] [id number] [address] [place] [id number], [place] [address] Dec, [facility] [address] [id number] [address] [place] [address], [place] [id number] Dec, [facility] [address] [id number] [address] [place] [address], [place] [address] Oct, [facility] [address] [id number] [address] [place] [address], [place] [address] Oct, [facility] [address] [id number] [address] [place] [address], [place] [id number] Oct, [facility] [address] [id number] [address] [place] [address], [place] [address] Sep, [facility] [address] [id number] [address] [place] [address], [place] [address] Sep, [facility] [address] [id number] [address] [place] [address], [place] [address] Aug, [facility] [address] [id number] [address] [place] [address], [place] [id number] Jul, [facility] [address] [id number] [address] [place] [address], [place] [address] Jul, [facility] [address] [id number] [address] [place] [address], [place] [address] Mar, [facility] [address] [id number] [address] [place] [address], [place] [address] Aug, [facility] [address] [id number] [address] [place] [address], [place] [address] Jul, [facility] [address] [id number] [address] [place] [id number] Jul, [facility] [address] [id number] [address] [place] [id number] Jul, [facility] [address] [id number] [address] [place] [address], [place] [address] Jul, [facility] [address] [id number] [address] [place] [id number] 14 Jun, 2010 [facility] [address] [id number] [address] [place] [address], [place] [address] Jun, [facility] [address] [id number] [address] [place] [id number] Apr, [facility] [address] [id number] [address] [place] [id number] Aug, [facility] [address] [id number] [address] [place] [id number] Jul, [facility] [address] [id number] [address] [place] [id number] Jul, [facility] [address] [id number] [address] [place] [id number] Jul, [facility] [address] [id number] [address] [place] [id number] Jun, [facility] [address] [id number] [address] [place] [id number] May, [facility] [address] [facility] [place] [id number] [address] [place] [id number] Dec, [facility] [address] [id number] [address] [place] [id number] Nov, [facility] [address] [id number] [address] [place] [id number] Oct, [facility] [address] [id number] [address] [place] [id number] Aug, [facility] [address] [id number] [address] [place] [id number] Aug, [facility] [address] [id number] [address] [place] [id number] Jun, IMMUNIZATIONS Vaccine Route Administration Date Status influenza IIV3 (history) Unknown Jul 06, 2014 Adminis tered SOCIAL HISTORY Never Assessed REASON FOR VISIT [...] x 3 day s 04/2012 Hospitalization History [facility] [place]- Right wrist injury 03/29/2018
--- OUTSIDE RECORDS SUMMARY | 2020-04-09 00:17 | XMS REPORT ---
Author Author Kateryna LAURENT Organization [facility] Address [address] [place] [address] Care Team Providers Care Upper Shaper Name Role Phone YAMILETH LAURENT Unavailable PROBLEMS Type Condition ICD9-CM Code [id number] Code Onset Dates Condition S tatus SNOMED Code Problem Irregular menses N92.6 Active 801 32155 Problem Migraine with aura and without status migrainosu s, not intractable G43.109 Active 4821904 Problem Uncontrolled type 2 diabetes mellitus with hyperglycemia E11.65 Active 096086780 Problem Morbid obesity due to excess calories E66.01 Active 570052261 Problem RLS (restless legs syndrome) G25.81 A ctive 06174399 Problem Morbid obesity E66.01 Active 92638 6002 ALLERGIES No Information ENCOUNTERS Encounter Location Date Diagnosis [facility] [address] [facility] [id number] [address] [place] [id number] 07 Dec, 2019 [facility] [address] [facility] [id number] [address] [place] [id number] 06 Dec, 2019 [facility] [address] [facility] [id number] [address] [place] [phone] Dec, [facility] [address] [facility] [id number] [address] [place] [phone] 30 Nov, 2019 [facility] [address] [facility] [id number] [address] [place] [phone] Nov, [facility] [address] [facility] [id number] [address] [place] [id number] Nov, [facility] [address] [facility] [id number] [address] [place] [phone] Nov, RLS (restless legs syndrome) G25.81 [facility] [address] [facility] [id number] [address] [place] [id number] 15 Oct, 2019 [facility] WALK IN [facility] [address] [id number] [address] [place] [id number] 09 Oct, 2019 Influenza J11.1 [facility] [address] [id number] [address] [place] [id number] 16 Sep, 2019 [facility] [address] [id number] [address] [place] [id number] 14 Sep, 2019 [facility] [address] [id number] [address] [place] [id number] 14 Sep, 2019 [facility] [address] [id number] [address] [place] [phone] 13 Sep, 2019 [facility] [address] [id number] [address] [place] [id number] 10 Sep, 2019 Pneumonia of left lower lobe due to infectious organism J18.9 and Migraine with aura and without status migrainosus, not intractable G43.109 [facility] [address] [id number] [address] [place] [id number] 10 Sep, 2019 [facility] [address] [id number] [address] [place] [id number] Sep, [facility] [address] [facility] [id number] [address] [place] [phone] 08 Sep, 2019 [facility] [address] [id number] [address] [place] [id number] 08 Sep, 2019 [facility] [address] [facility] [id number] [address] [place] [id number] 08 Sep, 2019 Pneumonia of left lower lobe due to infectious organism J18.9 and Migraine with aura and without status migrainosus, not intractable G43.109 [facility] [address] [id number] [address] [place] [id number] Aug, Irregular menses N92.6 ; Wel l woman exam Z01.419 ; Pelvic cramping R10.2 and Left breast lump N63.20 [facility] [address] [facility] [id number] [address] [place] [phone] Aug, [facility] [address] [facility] [id number] [address] [place] [phone] Aug, Well woman exam Z01.419 ; Le ft breast lump N63.20 ; Irregular menses N92.6 ; Encounter for immunization Z23 ; Pelvic cramping R10.2 and Screening for cervical cancer Z12.4 [facility] [address] [id number] [address] [place] [phone] Aug, [facility] [address] [facility] [id number] [address] [place] [phone] Aug, [facility] [address] [facility] [id number] [address] [place] [phone] Aug, [facility] [address] [facility] [id number] [address] [place] [phone] Jul, [facility] [address] [facility] [id number] [address] [place] [phone] Jun, [facility] [address] [facility] [id number] [address] [place] [phone] Jun, [facility] [address] [facility] [id number] [address] [place] [phone] Jun, [facility] [address] [facility] [id number] [address] [place] [phone] Jun, BMI 50.0-59.9, adult Z68.43 [facility] [address] [facility] [id number] [address] [place] [phone] Jun, [facility] WALK IN [facility] [address] [facility] [id number] [address] [place] [phone] May, Acute non-recurrent sinusiti s, unspecified location J01.90 ; Diarrhea, unspecified R19.7 ; Vomiting, unspecified R11.10 and Morbid obesity E66.01 [facility] [address] [id number] [address] [place] [phone] Apr, [facility] [address] [facility] [id number] [address] [place] [phone] Apr, Anemia due to other cause, n ot classified D64.89 and D-dimer, elevated R79.89 [facility] [address] [id number] [address] [place] [phone] Apr, [facility] [address] [facility] [id number] [address] [place] [phone] Apr, [facility] [address] [facility] [id number] [address] [place] [phone] Mar, Anemia due to other cause, n ot classified D64.89 and D-dimer, elevated R79.89 [facility] [address] [facility] [id number] [address] [place] [phone] Mar, Leg edema, right R60.0 ; Hig h risk medication use Z79.899 and Morbid obesity E66.01 [place] [address] [place] [id number] [address] [place] [phone] Mar, BMI 50.0-59.9, adult Z68.43 [place] [address] [place] [id number] [address] [place] [phone] Mar, [place] [address] [place] [id number] [address] [place] [phone] January, Uncontrolled type 2 diabetes mellitus with hyperglycemia E11.65 ; RLS (restless legs syndrome) G25.81 and Morbid obesity E66.01 [place] [address] [facility] [id number] [address] [place] [phone] Oct, Lipoma of right lower extrem ity D17.23 [place] [address] [facility] [id number] [address] [place] [id number] Oct, Lipoma of right lower extrem ity D17.23 [place] [address] [place] [id number] [address] [place] [phone] Sep, [facility] [address] [id number] [address] [place] [phone] Sep, [facility] [address] [facility] [id number] [address] [place] [phone] Sep, [facility] [address] [facility] [id number] [address] [place] [phone] Sep, [facility] [address] [facility] [id number] [address] [place] [phone] Sep, [facility] [address] [facility] [id number] [address] [place] [phone] Aug, Uncontrolled type 2 diabetes mellitus with hyperglycemia E11.65 ; Morbid obesity due to excess calories E66.01 ; Lipoma of torso D17.1 and BMI 50.0-59.9, adult Z68.43 [facility] [address] [facility] [id number] [address] [place] [phone] Jun, Encounter for immunization Z 23 [facility] [address] [id number] [address] [place] [phone] Jul, [facility] [address] [facility] [id number] [address] [place] [phone] Jun, Encounter for immunization Z 23 [facility] [address] [facility] [id number] [address] [place] [phone] May, [facility] [address] [facility] [id number] [address] [place] [phone] Jun, Encounter for immunization Z 23 [facility] [address] [id number] [address] [place] [id number] May, [facility] [address] [facility] [id number] [address] [place] [phone] May, [facility] [address] [facility] [id number] [address] [place] [phone] Apr, [facility] [address] [id number] [address] [place] [address], [place] [id number] Feb, [facility] [address] [id number] [address] [place] [address], [place] [id number] Feb, [facility] [address] [id number] [address] [place] [address], [place] [id number] Feb, [facility] [address] [id number] [address] [place] [address], [place] [id number] January, [facility] [address] [id number] [address] [place] [address], [place] [id number] January, [facility] [address] [id number] [address] [place] [address], [place] [id number] Dec, [facility] [address] [id number] [address] [place] [address], [place] [id number] Dec, [facility] [address] [id number] [address] [place] [address], [place] [id number] Nov, [facility] [address] [id number] [address] [place] [address], [place] [id number] Nov, [facility] [address] [id number] [address] [place] [address], [place] [id number] Nov, [facility] [address] [id number] [address] [place] [address], [place] [id number] Nov, [facility] [address] [id number] [address] [place] [address], [place] [id number] Nov, [facility] [address] [id number] [address] [place] [address], [place] [id number] Nov, [facility] [address] [id number] [address] [place] [address], [place] [id number] Nov, [facility] [address] [id number] [address] [place] [address], [place] [id number] Oct, [facility] [address] [id number] [address] [place] [address], [place] [id number] Oct, [facility] [address] [id number] [address] [place] [address], [place] [id number] Oct, [facility] [address] [id number] [address] [place] [address], [place] [id number] Oct, [facility] [address] [id number] [address] [place] [address], [place] [id number] Oct, [facility] [address] [id number] [address] [place] [address], [place] [id number] Sep, [facility] [address] [id number] [address] [place] [address], [place] [id number] Sep, [facility] [address] [id number] [address] [place] [address], [place] [id number] Sep, [facility] [address] [id number] [address] [place] [address], [place] [id number] Sep, [facility] [address] [id number] [address] [place] [address], [place] [id number] Sep, [facility] [address] [id number] [address] [place] [address], [place] [id number] Sep, [facility] [address] [id number] [address] [place] [address], [place] [id number] Sep, [facility] [address] [id number] [address] [place] [address], [place] [id number] Sep, [facility] [address] [id number] [address] [place] [address], [place] [id number] Sep, [facility] [address] [id number] [address] [place] [address], [place] [id number] Sep, [facility] [address] [id number] [address] [place] [address], [place] [id number] Aug, [facility] [address] [id number] [address] [place] [address], [place] [id number] Aug, [facility] [address] [id number] [address] [place] [address], [place] [id number] 31 Aug, 2014 [facility] [address] [id number] [address] [place] [address], [place] [id number] Aug, [facility] [address] [id number] [address] [place] [address], [place] [id number] Aug, [facility] [address] [id number] [address] [place] [address], [place] [id number] Aug, [facility] [address] [id number] [address] [place] [address], [place] [id number] Aug, [facility] [address] [id number] [address] [place] [address], [place] [id number] Aug, [facility] [address] [id number] [address] [place] [address], [place] [id number] Aug, [facility] [address] [id number] [address] [place] [address], [place] [id number] Aug, [facility] [address] [id number] [address] [place] [address], [place] [id number] Aug, [facility] [address] [id number] [address] [place] [address], [place] [id number] Aug, [facility] [address] [id number] [address] [place] [address], [place] [id number] 18 Aug, 2014 [facility] [address] [id number] [address] [place] [address], [place] [id number] 18 Aug, 2014 [facility] [address] [id number] [address] [place] [address], [place] [id number] 17 Aug, 2014 [facility] [address] [id number] [address] [place] [address], [place] [id number] 17 Aug, 2014 [facility] [address] [id number] [address] [place] [address], [place] [id number] 16 Aug, 2014 [facility] [address] [id number] [address] [place] [address], [place] [id number] Aug, [facility] [address] [id number] [address] [place] [address], [place] [id number] Aug, [facility] [address] [id number] [address] [place] [address], [place] [id number] Aug, [facility] [address] [id number] [address] [place] [address], [place] [id number] Aug, [facility] [address] [id number] [address] [place] [address], [place] [id number] Aug, [facility] [address] [id number] [address] [place] [address], [place] [id number] Aug, [facility] [address] [id number] [address] [place] [address], [place] [id number] Aug, [facility] [address] [id number] [address] [place] [address], [place] [id number] Jul, [facility] [address] [id number] [address] [place] [address], [place] [id number] Jul, [facility] [address] [id number] [address] [place] [address], [place] [id number] Jun, [facility] [address] [id number] [address] [place] [address], [place] [id number] 27 Jun, 2014 [facility] [address] [id number] [address] [place] [address], [place] [id number] 17 Jun, 2014 [facility] [address] [id number] [address] [place] [id number] 17 Jun, 2014 [facility] [address] [id number] [address] [place] [address], [place] [id number] 15 Jun, 2014 [facility] [address] [id number] [address] [place] [address], [place] [id number] 15 Jun, 2014 [facility] [address] [id number] [address] [place] [address], [place] [id number] 14 Jun, 2014 [facility] [address] [id number] [address] [place] [address], [place] [id number] 14 Jun, 2014 [facility] [address] [id number] [address] [place] [address], [place] [id number] 13 Jun, 2014 [facility] [address] [id number] [address] [place] [address], [place] [id number] 13 Jun, 2014 [facility] [address] [id number] [address] [place] [address], [place] [id number] Jun, [facility] [address] [id number] [address] [place] [address], [place] [id number] Jun, [facility] [address] [id number] [address] [place] [address], [place] [id number] Jun, [facility] [address] [id number] [address] [place] [address], [place] [id number] Jun, [facility] [address] [id number] [address] [place] [address], [place] [id number] 26 May, 2013 [facility] [address] [id number] [address] [place] [address], [place] [id number] 26 May, 2013 [facility] [address] [id number] [address] [place] [address], [place] [id number] 22 May, 2013 [facility] [address] [id number] [address] [place] [address], [place] [id number] 22 May, 2013 [facility] [address] [id number] [address] [place] [address], [place] [id number] 04 May, 2013 [facility] [address] [id number] [address] [place] [address], [place] [id number] 04 May, 2013 [facility] [address] [id number] [address] [place] [address], [place] [id number] 02 May, 2013 [facility] [address] [id number] [address] [place] [address], [place] [id number] 02 May, 2013 [facility] [address] [id number] [address] [place] [address], [place] [id number] Apr, [facility] [address] [id number] [facility] [place] [id number] Apr, [facility] [address] [id number] [facility] [place] [place] [id number] Apr, [facility] [address] [id number] [facility] [place] [place] [id number] Apr, [facility] [address] [id number] [facility] [place] [place] [id number] Apr, [facility] [address] [id number] [facility] [place] [place] [address] Apr, [facility] [address] [id number] [address] [place] [address], [place] [id number] Apr, [facility] [address] [id number] [address] [place] [address], [place] [id number] Apr, [facility] [address] [id number] [address] [place] [address], [place] [id number] Apr, [facility] [address] [id number] [address] [place] [address], [place] [id number] Mar, [facility] [address] [id number] [address] [place] [address], [place] [id number] Mar, [facility] [address] [id number] [address] [place] [address], [place] [id number] Mar, [facility] [address] [id number] [address] [place] [address], [place] [id number] Feb, [facility] [address] [id number] [address] [place] [address], [place] [address] Feb, [facility] [address] [id number] [address] [place] [address], [place] [id number] Feb, [facility] [address] [id number] [address] [place] [address], [place] [id number] Feb, [facility] [address] [id number] [address] [place] [address], [place] [id number] Feb, [facility] [address] [id number] [facility] [place] [place] [id number] 17 Feb, 2014 [facility] [address] [id number] [address] [place] [address], [place] [id number] Feb, [facility] [address] [id number] [facility] [place] [id number] Feb, [facility] [address] [id number] [address] [place] [address], [place] [id number] Feb, [facility] [address] [id number] [address] [place] [address], [place] [id number] Feb, [facility] [address] [id number] [address] [place] [address], [place] [id number] Feb, [facility] [address] [id number] [address] [place] [address], [place] [id number] Feb, [facility] [address] [id number] [address] [place] [address], [place] [id number] Feb, [facility] [address] [id number] [address] [place] [address], [place] [id number] Feb, [facility] [address] [id number] [address] [place] [address], [place] [id number] Feb, [facility] [address] [id number] [address] [place] [address], [place] [id number] Feb, [facility] [address] [id number] [address] [place] [address], [place] [id number] January, [facility] [address] [id number] [address] [place] [address], [place] [id number] January, [facility] [address] [id number] [address] [place] [address], [place] [id number] January, [facility] [address] [id number] [address] [place] [address], [place] [id number] January, [facility] [address] [id number] [facility] [place] [address] January, [facility] [address] [id number] [address] [place] [address], [place] [id number] January, [facility] [address] [id number] [facility] [place] [place] [address] January, [facility] [address] [id number] [address] [place] [address], [place] [id number] January, [facility] [address] [id number] [address] [place] [address], [place] [address] January, [facility] [address] [id number] [address] [place] [address], [place] [id number] January, [facility] [address] [id number] [address] [place] [address], [place] [id number] January, [facility] [address] [id number] [address] [place] [address], [place] [id number] January, [facility] [address] [id number] [address] [place] [address], [place] [id number] January, [facility] [facility] [address] [id number] [address] [place] [address], [place] [id number] January, [facility] [address] [id number] [address] [place] [address], [place] [id number] January, [facility] [address] [id number] [address] [place] [address], [place] [id number] January, [facility] [address] [id number] [address] [place] [address], [place] [id number] January, [facility] [address] [id number] [address] [place] [address], [place] [id number] January, [facility] [address] [id number] [address] [place] [address], [place] [id number] January, [facility] [address] [id number] [address] [place] [address], [place] [id number] January, [facility] [address] [id number] [address] [place] [address], [place] [id number] January, [facility] [address] [id number] [address] [place] [address], [place] [id number] January, [facility] [address] [id number] [address] [place] [address], [place] [id number] January, [facility] [address] [id number] [address] [place] [address], [place] [id number] January, [facility] [address] [id number] [address] [place] [address], [place] [id number] January, [facility] [address] [id number] [address] [place] [address], [place] [id number] January, [facility] [address] [id number] [address] [place] [address], [place] [id number] Dec, [facility] [address] [id number] [address] [place] [address], [place] [id number] Dec, [facility] [address] [id number] [address] [place] [address], [place] [id number] Dec, [facility] [address] [id number] [address] [place] [address], [place] [id number] Dec, [facility] [address] [id number] [address] [place] [address], [place] [id number] Dec, [facility] [address] [id number] [address] [place] [address], [place] [id number] Dec, [facility] [address] [id number] [address] [place] [address], [place] [id number] Dec, [facility] [address] [id number] [address] [place] [address], [place] [id number] Dec, [facility] [address] [id number] [address] [place] [address], [place] [id number] Dec, [facility] [address] [id number] [address] [place] [address], [place] [id number] Dec, [facility] [address] [id number] [address] [place] [address], [place] [id number] Dec, [facility] [address] [id number] [address] [place] [address], [place] [id number] Dec, [facility] [address] [id number] [address] [place] [address], [place] [id number] Dec, [facility] [address] [id number] [address] [place] [address], [place] [id number] Dec, [facility] [address] [id number] [address] [place] [address], [place] [id number] Dec, [facility] [address] [id number] [address] [place] [address], [place] [id number] Dec, [facility] [address] [id number] [address] [place] [address], [place] [id number] Dec, [facility] [address] [id number] [address] [place] [address], [place] [id number] Dec, [facility] [address] [id number] [address] [place] [address], [place] [id number] Dec, [facility] [address] [id number] [address] [place] [address], [place] [id number] Dec, [facility] [address] [id number] [address] [place] [address], [place] [id number] Dec, [facility] [address] [id number] [address] [place] [address], [place] [id number] Dec, [facility] [address] [id number] [address] [place] [address], [place] [id number] Nov, [facility] [address] [id number] [address] [place] [address], [place] [id number] Nov, [facility] [address] [id number] [address] [place] [address], [place] [id number] Nov, [facility] [address] [id number] [facility] [place] [id number] 25 Nov, 2013 [facility] [address] [id number] [facility] [place] [place] [id number] 24 Nov, 2013 [facility] [address] [id number] [facility] [place] [place] [id number] 24 Nov, 2013 [facility] [address] [id number] [facility] [place] [place] [id number] Nov, [facility] [address] [id number] [facility] [place] [place] [phone] Nov, [facility] [address] [id number] [address] [place] [address], [place] [id number] 18 Nov, 2013 [facility] [address] [id number] [address] [place] [address], [place] [id number] 18 Nov, 2013 [facility] [address] [id number] [address] [place] [address], [place] [id number] 18 Nov, 2013 [facility] [address] [id number] [address] [place] [address], [place] [id number] 18 Nov, 2013 [facility] [address] [id number] [address] [place] [address], [place] [id number] 14 Nov, 2013 [facility] [address] [id number] [address] [place] [address], [place] [id number] Nov, [facility] [address] [id number] [address] [place] [address], [place] [id number] Nov, [facility] [address] [id number] [address] [place] [address], [place] [id number] Nov, [facility] [address] [id number] [address] [place] [address], [place] [id number] 28 Oct, 2013 [facility] [address] [id number] [address] [place] [address], [place] [id number] Oct, [facility] [address] [id number] [address] [place] [address], [place] [id number] Oct, [facility] [address] [id number] [address] [place] [address], [place] [id number] Oct, [facility] [address] [id number] [address] [place] [address], [place] [id number] Oct, [facility] [address] [id number] [address] [place] [address], [place] [id number] Oct, [facility] [address] [id number] [address] [place] [address], [place] [id number] Oct, [facility] [address] [id number] [address] [place] [address], [place] [id number] Oct, [facility] [address] [id number] [address] [place] [address], [place] [id number] Oct, [facility] [address] [id number] [address] [place] [address], [place] [id number] Oct, [facility] [address] [id number] [address] [place] [address], [place] [id number] Oct, [facility] [address] [id number] [address] [place] [address], [place] [id number] Oct, [facility] [address] [id number] [address] [place] [address], [place] [id number] Oct, [facility] [address] [id number] [address] [place] [address], [place] [id number] Oct, [facility] [address] [id number] [address] [place] [address], [place] [id number] Oct, [facility] [address] [id number] [address] [place] [address], [place] [id number] Sep, [facility] [address] [id number] [address] [place] [address], [place] [id number] Sep, [facility] [address] [id number] [address] [place] [address], [place] [id number] Sep, [facility] [address] [id number] [address] [place] [address], [place] [id number] 15 Sep, 2013 [facility] [address] [id number] [address] [place] [address], [place] [id number] Sep, [facility] [address] [id number] [address] [place] [address], [place] [id number] Sep, [facility] [address] [id number] [address] [place] [address], [place] [id number] Sep, [facility] [address] [id number] [address] [place] [address], [place] [id number] Sep, [facility] [address] [id number] [address] [place] [address], [place] [id number] Sep, [facility] [address] [id number] [address] [place] [address], [place] [id number] Sep, [facility] [address] [id number] [address] [place] [address], [place] [id number] Sep, [facility] [address] [id number] [address] [place] [address], [place] [id number] Sep, [facility] [address] [id number] [address] [place] [address], [place] [id number] Sep, [facility] [address] [id number] [address] [place] [address], [place] [id number] Aug, [facility] [address] [id number] [address] [place] [address], [place] [id number] Aug, [facility] [address] [id number] [address] [place] [address], [place] [id number] Aug, [facility] [address] [id number] [address] [place] [address], [place] [id number] Aug, [facility] [address] [id number] [address] [place] [address], [place] [id number] Aug, [facility] [address] [id number] [address] [place] [address], [place] [id number] 17 Aug, 2013 [facility] [address] [id number] [address] [place] [address], [place] [id number] 16 Aug, 2013 [facility] [address] [id number] [address] [place] [address], [place] [id number] 16 Aug, 2013 [facility] [address] [id number] [address] [place] [address], [place] [id number] 12 Aug, 2013 [facility] [address] [id number] [address] [place] [address], [place] [id number] 12 Aug, 2013 [facility] [address] [id number] [address] [place] [address], [place] [id number] 10 Aug, 2013 [facility] [address] [id number] [address] [place] [address], [place] [id number] 10 Aug, 2013 [facility] [address] [id number] [address] [place] [address], [place] [id number] 02 Aug, 2013 [facility] [address] [id number] [address] [place] [address], [place] [id number] 02 Aug, 2013 [facility] [address] [id number] [address] [place] [address], [place] [id number] 19 Jul, 2013 [facility] [address] [id number] [address] [place] [address], [place] [id number] 19 Jul, 2013 [facility] [address] [id number] [address] [place] [address], [place] [id number] 18 Jul, 2013 [facility] [address] [id number] [address] [place] [address], [place] [id number] 18 Jul, 2013 [facility] [address] [id number] [address] [place] [address], [place] [id number] 14 Jul, 2013 [facility] [address] [id number] [address] [place] [address], [place] [id number] 14 Jul, 2013 [facility] [address] [id number] [address] [place] [address], [place] [id number] 14 Jul, 2013 [facility] [address] [id number] [address] [place] [address], [place] [id number] 14 Jul, 2012 [facility] [address] [id number] [address] [place] [address], [place] [id number] 07 Jul, 2012 [facility] [address] [id number] [address] [place] [address], [place] [id number] 07 Jul, 2012 [facility] [address] [id number] [address] [place] [address], [place] [id number] 06 Jul, 2012 [facility] [address] [id number] [address] [place] [address], [place] [id number] 06 Jul, 2012 [facility] [address] [id number] [address] [place] [address], [place] [id number] 05 Jul, 2013 [facility] [address] [id number] [address] [place] [address], [place] [id number] 05 Jul, 2013 [facility] [address] [id number] [address] [place] [address], [place] [id number] Jun, [facility] [address] [id number] [address] [place] [address], [place] [id number] 23 Jun, 2013 [facility] [address] [id number] [address] [place] [address], [place] [id number] 15 Jun, 2013 [facility] [address] [id number] [address] [place] [address], [place] [id number] 15 Jun, 2013 [facility] [address] [id number] [address] [place] [address], [place] [id number] 14 Jun, 2013 [facility] [address] [id number] [address] [place] [address], [place] [id number] 24 May, 2012 [facility] [address] [id number] [address] [place] [address], [place] [id number] 20 May, 2012 [facility] [address] [id number] [address] [place] [address], [place] [id number] 20 May, 2012 [facility] [address] [id number] [address] [place] [address], [place] [id number] 20 May, 2012 [facility] [address] [id number] [facility] [place] [place] [id number] 19 May, 2012 [facility] [address] [id number] [address] [place] [address], [place] [id number] 13 May, 2012 [facility] [address] [id number] [address] [place] [address], [place] [id number] 12 May, 2012 [facility] [address] [id number] [address] [place] [address], [place] [id number] 12 May, 2012 [facility] [address] [id number] [address] [place] [address], [place] [id number] 11 May, 2012 [facility] [address] [id number] [address] [place] [address], [place] [id number] 11 May, 2012 [facility] [address] [id number] [address] [place] [address], [place] [id number] 11 May, 2012 [facility] [address] [id number] [address] [place] [address], [place] [id number] 09 May, 2012 [facility] [address] [id number] [address] [place] [address], [place] [id number] 05 May, 2012 [facility] [address] [id number] [address] [place] [address], [place] [id number] 04 May, 2012 [facility] [address] [id number] [address] [place] [address], [place] [id number] 03 May, 2012 [facility] [address] [id number] [address] [place] [address], [place] [id number] 27 Apr, 2012 [facility] [address] [id number] [address] [place] [address], [place] [id number] Apr, [facility] [address] [id number] [address] [place] [address], [place] [id number] Apr, [facility] [address] [id number] [address] [place] [address], [place] [id number] Apr, 2012 [facility] [address] [id number] [address] [place] [address], [place] [id number] Apr, [facility] [address] [id number] [address] [place] [address], [place] [id number] Apr, [facility] [address] [id number] [address] [place] [address], [place] [id number] Apr, [facility] [address] [id number] [address] [place] [address], [place] [id number] Apr, [facility] [address] [id number] [address] [place] [address], [place] [id number] Apr, [facility] [address] [id number] [address] [place] [address], [place] [id number] Mar, [facility] [address] [id number] [address] [place] [address], [place] [id number] Mar, [facility] [address] [id number] [address] [place] [address], [place] [id number] Mar, [facility] [address] [id number] [address] [place] [address], [place] [id number] Mar, [facility] [address] [id number] [address] [place] [address], [place] [id number] Mar, [facility] [address] [id number] [address] [place] [address], [place] [id number] Mar, [facility] [address] [id number] [address] [place] [address], [place] [id number] Mar, [facility] [address] [id number] [address] [place] [address], [place] [id number] Mar, [facility] [address] [id number] [address] [place] [address], [place] [id number] Mar, [facility] [address] [id number] [address] [place] [address], [place] [id number] Mar, [facility] [address] [id number] [address] [place] [address], [place] [id number] Mar, [facility] [address] [id number] [address] [place] [address], [place] [id number] Feb, [facility] [address] [id number] [address] [place] [address], [place] [id number] Feb, [facility] [address] [id number] [address] [place] [address], [place] [id number] Feb, [facility] [address] [id number] [address] [place] [address], [place] [id number] Feb, [facility] [address] [id number] [address] [place] [address], [place] [id number] Feb, [facility] [address] [id number] [address] [place] [address], [place] [id number] Feb, [facility] [address] [id number] [address] [place] [address], [place] [id number] Feb, [facility] [address] [id number] [address] [place] [address], [place] [id number] Feb, [facility] [address] [id number] [address] [place] [address], [place] [id number] Feb, [facility] [address] [id number] [address] [place] [address], [place] [id number] January, [facility] [address] [id number] [address] [place] [address], [place] [id number] January, [facility] [address] [id number] [address] [place] [address], [place] [id number] January, [facility] [address] [id number] [address] [place] [address], [place] [id number] January, [facility] [address] [id number] [address] [place] [address], [place] [id number] January, [facility] [address] [id number] [address] [place] [address], [place] [id number] January, [facility] [address] [id number] [address] [place] [address], [place] [id number] January, [facility] [address] [id number] [address] [place] [address], [place] [id number] January, [facility] [address] [id number] [address] [place] [address], [place] [id number] January, [facility] [address] [id number] [address] [place] [address], [place] [id number] January, [facility] [address] [id number] [address] [place] [address], [place] [id number] January, [facility] [address] [id number] [address] [place] [address], [place] [id number] January, [facility] [address] [id number] [address] [place] [address], [place] [id number] January, [facility] [address] [id number] [address] [place] [address], [place] [id number] January, [facility] [address] [id number] [address] [place] [address], [place] [id number] January, [facility] [address] [id number] [address] [place] [address], [place] [id number] January, [facility] [address] [id number] [address] [place] [address], [place] [id number] January, [facility] [address] [id number] [address] [place] [address], [place] [id number] January, [facility] [address] [id number] [address] [place] [address], [place] [id number] January, [facility] [address] [id number] [address] [place] [address], [place] [id number] January, [facility] [address] [id number] [address] [place] [address], [place] [id number] January, [facility] [address] [id number] [address] [place] [address], [place] [id number] January, [facility] [address] [id number] [address] [place] [address], [place] [id number] January, [facility] [address] [id number] [address] [place] [address], [place] [id number] Dec, [facility] [address] [id number] [address] [place] [address], [place] [id number] Dec, [facility] [address] [id number] [address] [place] [address], [place] [id number] Dec, [facility] [address] [id number] [address] [place] [address], [place] [id number] Dec, [facility] [address] [id number] [address] [place] [address], [place] [id number] Dec, [facility] [address] [id number] [address] [place] [address], [place] [id number] Nov, [facility] [address] [id number] [address] [place] [address], [place] [id number] Oct, [facility] [address] [id number] [address] [place] [address], [place] [id number] Oct, [facility] [address] [id number] [address] [place] [address], [place] [id number] Oct, [facility] [address] [id number] [address] [place] [address], [place] [id number] Oct, [facility] [address] [id number] [address] [place] [address], [place] [id number] Oct, [facility] [address] [id number] [address] [place] [address], [place] [id number] Sep, [facility] [address] [id number] [address] [place] [address], [place] [id number] Sep, [facility] [address] [id number] [address] [place] [address], [place] [id number] Sep, [facility] [address] [id number] [address] [place] [address], [place] [id number] Aug, [facility] [address] [id number] [address] [place] [address], [place] [id number] Aug, [facility] [address] [id number] [address] [place] [address], [place] [id number] Aug, [facility] [address] [id number] [address] [place] [address], [place] [id number] Aug, [facility] [address] [id number] [address] [place] [address], [place] [id number] Jul, [facility] [address] [id number] [address] [place] [address], [place] [id number] Jul, [facility] [address] [id number] [address] [place] [address], [place] [id number] Jul, [facility] [address] [id number] [address] [place] [address], [place] [id number] Jul, [facility] [address] [id number] [address] [place] [address], [place] [id number] Jul, [facility] [address] [id number] [address] [place] [address], [place] [id number] Jul, [facility] [address] [id number] [address] [place] [id number] Jun, [facility] [address] [id number] [address] [place] [address], [place] [id number] Jun, [facility] [address] [id number] [address] [place] [id number] Jun, [facility] [address] [id number] [address] [place] [address], [place] [id number] Jun, [facility] [address] [id number] [address] [place] [id number] Jun, [facility] [address] [id number] [address] [place] [id number] Jun, [facility] [address] [id number] [address] [place] [address], [place] [id number] 05 Jun, 2012 [facility] [address] [id number] [address] [place] [address], [place] [id number] 05 Jun, 2012 [facility] [address] [id number] [address] [place] [address], [place] [id number] Jun, [facility] [address] [id number] [address] [place] [address], [place] [id number] Jun, [facility] [address] [id number] [address] [place] [address], [place] [id number] 17 May, 2012 [facility] [address] [id number] [address] [place] [address], [place] [id number] 08 May, 2012 [facility] [address] [id number] [address] [place] [address], [place] [id number] 06 May, 2012 [facility] [address] [id number] [address] [place] [address], [place] [id number] 30 Apr, 2012 [facility] [address] [id number] [address] [place] [address], [place] [id number] Apr, [facility] [address] [id number] [address] [place] [address], [place] [id number] 14 Apr, 2012 [facility] [address] [id number] [address] [place] [address], [place] [id number] Apr, [facility] [address] [id number] [address] [place] [address], [place] [id number] Apr, [facility] [address] [id number] [address] [place] [address], [place] [id number] Apr, [facility] [address] [id number] [address] [place] [address], [place] [id number] Apr, [facility] [address] [id number] [address] [place] [address], [place] [id number] Apr, [facility] [address] [id number] [address] [place] [address], [place] [id number] Apr, [facility] [address] [id number] [address] [place] [address], [place] [id number] Mar, [facility] [address] [id number] [address] [place] [address], [place] [id number] Mar, [facility] [address] [id number] [address] [place] [address], [place] [id number] Mar, [facility] [address] [id number] [address] [place] [address], [place] [id number] Mar, [facility] [address] [id number] [address] [place] [address], [place] [id number] Feb, [facility] [address] [id number] [address] [place] [address], [place] [id number] Feb, [facility] [address] [id number] [address] [place] [address], [place] [id number] Feb, [facility] [address] [id number] [address] [place] [address], [place] [id number] January, [facility] [address] [id number] [address] [place] [address], [place] [id number] January, [facility] [address] [id number] [address] [place] [address], [place] [id number] January, [facility] [address] [id number] [address] [place] [address], [place] [id number] January, [facility] [address] [id number] [address] [place] [address], [place] [id number] January, [facility] [address] [id number] [address] [place] [address], [place] [id number] Dec, [facility] [address] [id number] [address] [place] [address], [place] [id number] Dec, [facility] [address] [id number] [address] [place] [address], [place] [id number] 16 Dec, 2011 [facility] [address] [id number] [address] [place] [address], [place] [id number] Oct, [facility] [address] [id number] [address] [place] [address], [place] [id number] Oct, [facility] [address] [id number] [address] [place] [address], [place] [id number] Oct, [facility] [address] [id number] [address] [place] [address], [place] [id number] Sep, [facility] [address] [id number] [address] [place] [address], [place] [id number] Sep, [facility] [address] [id number] [address] [place] [address], [place] [id number] Aug, [facility] [address] [id number] [address] [place] [address], [place] [id number] Jul, [facility] [address] [id number] [address] [place] [address], [place] [id number] Jul, [facility] [address] [id number] [address] [place] [address], [place] [id number] Mar, [facility] [address] [id number] [address] [place] [address], [place] [id number] Aug, [facility] [address] [id number] [address] [place] [address], [place] [id number] Jul, [facility] [address] [id number] [address] [place] [address], [place] [id number] Jul, [facility] [address] [id number] [address] [place] [id number] Jul, [facility] [address] [id number] [address] [place] [address], [place] [id number] Jul, [facility] [address] [id number] [address] [place] [address], [place] [id number] 14 Jun, 2010 [facility] [address] [id number] [address] [place] [address], [place] [id number] Jun, [facility] [address] [id number] [address] [place] [phone] Apr, [facility] [address] [id number] [address] [place] [phone] Aug, [facility] [address] [id number] [address] [place] [id number] Jul, [facility] [address] [id number] [address] [place] [id number] Jul, [facility] [address] [id number] [address] [place] [phone] Jul, [facility] [address] [id number] [address] [place] [id number] Jun, [facility] [address] [id number] [address] [place] [id number] May, [facility] [address] [id number] [address] [place] [id number] Dec, [facility] [address] [id number] [address] [place] [id number] Nov, [facility] [address] [id number] [address] [place] [id number] Oct, [facility] [address] [id number] [address] [place] [phone] Aug, [facility] [address] [id number] [address] [place] [id number] Aug, [facility] [address] [id number] [address] [place] [id number] Jun, IMMUNIZATIONS No Known Immunizations SOCIAL HISTORY Never Assessed REASON FOR VISIT PLAN OF CARE VITAL SIGNS Height 66 in 2013-10-01 Weight 319 lbs 2013-10-01 Temperature 99.6 degrees Fahrenheit 2013-10-01 Heart Rate 106 bpm 2013-10-01 Respiratory Rate 32 2013-10-01 Blood pressure systolic 94 mmHg 2013-10-01 Blood pressure diastolic 56 mmHg 2013-10-01 MEDICATIONS Unknown Medications RESULTS No Results PROCEDURES Procedure Date Ordered Result Body Site MEASURE BLOOD OXYGEN LEVEL Oct 01, 2013 NATRIURETIC PEPTIDE Oct 01, 2013 BASIC METABOLIC PANEL Oct 01, 2013 VENIPUNCT, ROUTINE* Oct 01, 2013 INSTRUCTIONS MEDICATIONS ADMINISTERED No Known Medications [...] x 3 day s 04/2012 Hospitalization History [facility] ED [place]- Right wrist injury 03/29/2018
--- OUTSIDE RECORDS SUMMARY | 2020-04-09 00:17 | XMS REPORT ---
Author Author Kateryna Turner Doctor Organization [facility] Address Unknown Phone Unavailable Care Team Providers Care Tong Setter Name Role Phone Migration, Doctor Unavailable Unavailable PROBLEMS Type Condition ICD9-CM Code PRE84-QA Code Onset Dates Condition S tatus SNOMED Code Problem Irregular menses N92.6 Active 801 85040 Problem Migraine with aura and without status migrainosu s, not intractable G43.109 Active 6234923 Problem Uncontrolled type 2 diabetes mellitus with hyperglycemia E11.65 Active 383868815 Problem Morbid obesity due to excess calories E66.01 Active 942656655 Problem RLS (restless legs syndrome) G25.81 A ctive 59873830 Problem Morbid obesity E66.01 Active 50653 6002 ALLERGIES No Information ENCOUNTERS Encounter Location Date Diagnosis [facility] [place] [address] [facility] [id number] [address] [place] [phone] 07 Dec, 2019 [facility] [place] [address] [facility] [id number] [address] [place] [phone] 06 Dec, 2019 [facility] [place] [address] [facility] [id number] [address] [place] [phone] Dec, [facility] [place] [address] [facility] [id number] [address] [place] [phone] 30 Nov, 2019 [facility] [place] [address] [facility] [id number] [address] [place] [phone] Nov, [facility] [place] [address] [facility] [id number] [address] [place] [phone] Nov, [facility] [place] [address] [facility] [id number] [address] [place] [phone] Nov, RLS (restless legs syndrome) G25.81 [facility] [place] [address] [facility] [id number] [address] [place] [phone] 15 Oct, 2019 [facility] [address] [id number] [address] [place] [id number] 09 Oct, 2019 Influenza J11.1 [facility] [place] [address] [id number] [address] [place] [phone] 16 Sep, 2019 [facility] [place] [address] [id number] [address] [place] [phone] 14 Sep, 2019 [facility] [place] [address] [id number] [address] [place] [phone] 14 Sep, 2019 [facility] [place] [address] [id number] [address] [place] [phone] 13 Sep, 2019 [facility] [place] [address] [id number] [address] [place] [phone] 10 Sep, 2019 Pneumonia of left lower lobe due to infectious organism J18.9 and Migraine with aura and without status migrainosus, not intractable G43.109 [facility] [place] [address] [id number] [address] [place] [phone] 10 Sep, 2019 [facility] [place] [address] [id number] [address] [place] [id number] Sep, [facility] [place] [address] [facility] [id number] [address] [place] [phone] Sep, [facility] [place] [address] [facility] [id number] [address] [place] [id number] 08 Sep, 2019 [facility] [place] [address] [facility] [id number] [address] [place] [id number] Sep, Pneumonia of left lower lobe due to infectious organism J18.9 and Migraine with aura and without status migrainosus, not intractable G43.109 [facility] [place] [address] [facility] [id number] [address] [place] [phone] Aug, Irregular menses N92.6 ; Wel l woman exam Z01.419 ; Pelvic cramping R10.2 and Left breast lump N63.20 [facility] [place] [address] [id number] [address] [place] [phone] Aug, [facility] [place] [address] [id number] [address] [place] [phone] Aug, Well woman exam Z01.419 ; Le ft breast lump N63.20 ; Irregular menses N92.6 ; Encounter for immunization Z23 ; Pelvic cramping R10.2 and Screening for cervical cancer Z12.4 [facility] [place] [address] [id number] [address] [place] [phone] Aug, [facility] [place] [address] [id number] [address] [place] [id number] Aug, [facility] [place] [address] [id number] [address] [place] [phone] Aug, [facility] [place] [address] [id number] [address] [place] [phone] Jul, [facility] [place] [address] [facility] [id number] [address] [place] [phone] Jun, [facility] [place] [address] [id number] [address] [place] [phone] Jun, [facility] [place] [address] [facility] [id number] [address] [place] [phone] Jun, [facility] [place] [address] [facility] [id number] [address] [place] [phone] Jun, BMI 50.0-59.9, adult Z68.43 [facility] [place] [address] [facility] [id number] [address] [place] [phone] Jun, [facility] [address] [facility] [id number] [address] [place] [phone] May, Acute non-recurrent sinusiti s, unspecified location J01.90 ; Diarrhea, unspecified R19.7 ; Vomiting, unspecified R11.10 and Morbid obesity E66.01 [facility] [place] [address] [facility] [id number] [address] [place] [phone] Apr, [place] [address] [facility] [id number] [address] [place] [phone] Apr, Anemia due to other cause, n ot classified D64.89 and D-dimer, elevated R79.89 [place] [address] [facility] [id number] [address] [place] [phone] Apr, [place] [address] [place] [id number] [place] [phone] Apr, [place] [address] [place] [id number] [place] [phone] Mar, Anemia due to other cause, n ot classified D64.89 and D-dimer, elevated R79.89 [place] [address] [place] [id number] [place] [phone] Mar, Leg edema, right R60.0 ; Hig h risk medication use Z79.899 and Morbid obesity E66.01 [place] [address] [phone] Mar, BMI 50.0-59.9, adult Z68.43 [place] [address] [address] Mar, [place] [address] [address] January, Uncontrolled type 2 diabetes mellitus with hyperglycemia E11.65 ; RLS (restless legs syndrome) G25.81 and Morbid obesity E66.01 [place] [address] [place] [id number] [address] [place] [phone] Oct, Lipoma of right lower extrem ity D17.23 [place] [address] [phone] Oct, Lipoma of right lower extrem ity D17.23 [place] [address] [place] [id number] [address] [place] [phone] Sep, [place] [address] [facility] [id number] [address] [place] [phone] Sep, [facility] [place] [address] [facility] [id number] [address] [place] [phone] Sep, [facility] [place] [address] [id number] [address] [place] [phone] Sep, [facility] [place] [address] [facility] [id number] [address] [place] [phone] Sep, [facility] [place] [address] [id number] [address] [place] [phone] Aug, Uncontrolled type 2 diabetes mellitus with hyperglycemia E11.65 ; Morbid obesity due to excess calories E66.01 ; Lipoma of torso D17.1 and BMI 50.0-59.9, adult Z68.43 [facility] [place] [address] [facility] [id number] [address] [place] [phone] Jun, Encounter for immunization Z 23 [facility] [place] [address] [id number] [address] [place] [phone] Jul, [facility] [place] [address] [id number] [address] [place] [phone] Jun, Encounter for immunization Z 23 [facility] [place] [address] [facility] [id number] [address] [place] [phone] May, [facility] [place] [address] [id number] [address] [place] [phone] Jun, Encounter for immunization Z 23 [facility] [place] [address] [id number] [address] [place] [phone] May, [facility] [place] [address] [facility] [id number] [address] [place] [phone] May, [facility] [place] [address] [facility] [id number] [address] [place] [phone] Apr, [facility] [place] [address] [facility] [id number] [address] [place] [phone] Feb, [facility] [address] [id number] [address] [place] [address], [place] [address] Feb, [facility] [address] [id number] [address] [place] [address], [place] [address] Feb, [facility] [address] [id number] [address] [place] [address], [place] [address] January, [facility] [address] [id number] [address] [place] [address], [place] [address] January, [facility] [address] [id number] [address] [place] [address], [place] [address] Dec, [facility] [address] [id number] [address] [place] [address], [place] [address] Dec, [facility] [address] [id number] [address] [place] [address], [place] [address] Nov, [facility] [address] [id number] [address] [place] [address], [place] [address] Nov, [facility] [address] [id number] [address] [place] [address], [place] [address] Nov, [facility] [address] [id number] [address] [place] [address], [place] [address] Nov, [facility] [address] [id number] [address] [place] [address], [place] [address] Nov, [facility] [address] [id number] [address] [place] [phone] Nov, [facility] [address] [id number] [address] [place] [address], [place] [address] Nov, [facility] [address] [id number] [address] [place] [address], [place] [address] Oct, [facility] [address] [id number] [address] [place] [address], [place] [address] Oct, [facility] [address] [id number] [address] [place] [address] [place] [address] Oct, [facility] [address] [id number] [address] [place] [address], [place] [address] Oct, [facility] [address] [id number] [address] [place] [address], [place] [address] Oct, [facility] [address] [id number] [address] [place] [address], [place] [address] Sep, [facility] [address] [id number] [address] [place] [address], [place] [address] Sep, [facility] [address] [id number] [address] [place] [address], [place] [address] Sep, [facility] [address] [id number] [address] [place] [address], [place] [address] Sep, [facility] [address] [id number] [address] [place] [address], [place] [address] Sep, [facility] [address] [id number] [address] [place] [address], [place] [address] Sep, [facility] [address] [id number] [address] [place] [address], [place] [address] Sep, [facility] [address] [id number] [address] [place] [address], [place] [address] Sep, [facility] [address] [id number] [address] [place] [address], [place] [address] Sep, [facility] [address] [id number] [address] [place] [address], [place] [address] Sep, [facility] [address] [id number] [address] [place] [address], [place] [address] Aug, [facility] [address] [id number] [address] [place] [address], [place] [address] Aug, [facility] [address] [id number] [address] [place] [address], [place] [address] Aug, [facility] [address] [id number] [address] [place] [address], [place] [address] Aug, [facility] [address] [id number] [address] [place] [address], [place] [address] Aug, [facility] [address] [id number] [address] [place] [address], [place] [address] Aug, [facility] [address] [id number] [address] [place] [address], [place] [address] Aug, [facility] [address] [id number] [address] [place] [address], [place] [address] Aug, [facility] [address] [id number] [address] [place] [address], [place] [address] Aug, [facility] [address] [id number] [address] [place] [address], [place] [address] Aug, [facility] [address] [id number] [address] [place] [address], [place] [address] Aug, [facility] [address] [id number] [address] [place] [address], [place] [address] Aug, [facility] [address] [id number] [address] [place] [address], [place] [address] Aug, [facility] [address] [id number] [address] [place] [address], [place] [address] Aug, [facility] [address] [id number] [address] [place] [address], [place] [address] 17 Aug, 2014 [facility] [address] [id number] [address] [place] [address], [place] [address] 17 Aug, 2014 [facility] [address] [id number] [address] [place] [address], [place] [address] 16 Aug, 2014 [facility] [address] [id number] [address] [place] [address], [place] [address] 16 Aug, 2014 [facility] [address] [id number] [address] [place] [address], [place] [address] Aug, [facility] [address] [id number] [address] [place] [address], [place] [address] Aug, [facility] [address] [id number] [address] [place] [address], [place] [address] 08 Aug, 2014 [facility] [address] [id number] [address] [place] [address], [place] [address] Aug, [facility] [address] [id number] [address] [place] [address], [place] [address] Aug, [facility] [address] [id number] [address] [place] [address], [place] [address] Aug, [facility] [address] [id number] [address] [place] [address], [place] [address] Jul, [facility] [address] [id number] [address] [place] [address], [place] [address] Jul, [facility] [address] [id number] [address] [place] [address], [place] [address] Jun, [facility] [address] [id number] [address] [place] [address], [place] [address] 27 Jun, 2014 [facility] [address] [id number] [address] [place] [address], [place] [address] Jun, [facility] [address] [id number] [address] [place] [address], [place] [address] 17 Jun, 2014 [facility] [address] [id number] [address] [place] [address] 15 Jun, 2014 [facility] [address] [id number] [address] [place] [address], [place] [address] 15 Jun, 2014 [facility] [address] [id number] [address] [place] [address], [place] [address] 14 Jun, 2014 [facility] [address] [id number] [address] [place] [address], [place] [address] 14 Jun, 2014 [facility] [address] [id number] [address] [place] [address], [place] [address] Jun, [facility] [address] [id number] [address] [place] [address], [place] [address] Jun, [facility] [address] [id number] [address] [place] [address], [place] [address] Jun, [facility] [address] [id number] [address] [place] [address], [place] [address] Jun, [facility] [address] [id number] [address] [place] [address], [place] [address] Jun, [facility] [address] [id number] [address] [place] [address], [place] [address] Jun, [facility] [address] [id number] [address] [place] [address], [place] [address] May, [facility] [address] [id number] [address] [place] [address], [place] [address] May, 2013 [facility] [address] [id number] [address] [place] [address], [place] [address] May, [facility] [address] [id number] [address] [place] [address], [place] [address] May, [facility] [address] [id number] [address] [place] [address], [place] [address] May, [facility] [address] [id number] [address] [place] [address], [place] [address] May, 2013 [facility] [address] [id number] [address] [place] [address], [place] [address] May, 2013 [facility] [address] [id number] [address] [place] [address], [place] [address] May, [facility] [address] [id number] [address] [place] [address], [place] [address] Apr, [facility] [address] [id number] [address] [place] [address], [place] [address] Apr, [facility] [address] [id number] [facility] [place] [address] Apr, [facility] [address] [id number] [address] [place] [address], [place] [address] Apr, [facility] [address] [id number] [address] [place] [address], [place] [address] Apr, [facility] [address] [id number] [address] [place] [address], [place] [address] Apr, [facility] [address] [id number] [address] [place] [address], [place] [address] Apr, [facility] [address] [id number] [address] [place] [address], [place] [address] Apr, [facility] [address] [id number] [address] [place] [address], [place] [address] Apr, [facility] [address] [id number] [address] [place] [address], [place] [address] Mar, [facility] [address] [id number] [address] [place] [address], [place] [address] Mar, [facility] [address] [id number] [address] [place] [address], [place] [address] Mar, [facility] [address] [id number] [address] [place] [address], [place] [address] Feb, [facility] [address] [id number] [address] [place] [address], [place] [address] Feb, [facility] [address] [id number] [address] [place] [address], [place] [address] Feb, [facility] [address] [id number] [address] [place] [address], [place] [address] Feb, [facility] [address] [id number] [address] [place] [address], [place] [address] Feb, [facility] [address] [id number] [address] [place] [address], [place] [address] 17 Feb, 2014 [facility] [address] [id number] [facility] [place] [address] Feb, [facility] [address] [id number] [facility] [place] [address] Feb, [facility] [address] [id number] [address] [place] [address], [place] [address] Feb, [facility] [address] [id number] [address] [place] [address], [place] [address] Feb, [facility] [address] [id number] [address] [place] [address], [place] [address] Feb, [facility] [address] [id number] [address] [place] [address], [place] [address] Feb, [facility] [address] [id number] [address] [place] [address], [place] [address] Feb, [facility] [address] [id number] [address] [place] [address], [place] [address] Feb, [facility] [address] [id number] [address] [place] [address], [place] [address] Feb, [facility] [address] [id number] [address] [place] [address], [place] [address] Feb, [facility] [address] [id number] [address] [place] [address], [place] [address] January, [facility] [address] [id number] [address] [place] [address], [place] [address] January, [facility] [address] [id number] [address] [place] [address], [place] [address] January, [facility] [address] [id number] [address] [place] [address], [place] [address] January, [facility] [address] [id number] [address] [place] [address], [place] [address] January, [facility] [address] [id number] [facility] [place] [address] January, [facility] [address] [id number] [facility] [place] [address] January, [facility] [address] [id number] [facility] [place] [address] January, [facility] [address] [id number] [facility] [place] [address] January, [facility] [address] [id number] [facility] [place] [address] January, [facility] [address] [id number] [address] [place] [address], [place] [address] January, [facility] [address] [id number] [address] [place] [address], [place] [address] January, [facility] [address] [id number] [address] [place] [address], [place] [address] January, [facility] [address] [id number] [address] [place] [address], [place] [address] January, [facility] [address] [id number] [address] [place] [address], [place] [address] January, [facility] [address] [id number] [address] [place] [address], [place] [address] January, [facility] [address] [id number] [address] [place] [address], [place] [address] January, [facility] [address] [id number] [address] [place] [address], [place] [address] January, [facility] [address] [id number] [address] [place] [address], [place] [address] January, [facility] [address] [id number] [address] [place] [address], [place] [address] January, [facility] [address] [id number] [address] [place] [address], [place] [address] January, [facility] [address] [id number] [facility] [place] [address] January, [facility] [address] [id number] [address] [place] [address], [place] [address] January, [facility] [address] [id number] [address] [place] [address], [place] [address] January, [facility] [address] [id number] [address] [place] [address], [place] [address] January, [facility] [address] [id number] [address] [place] [address], [place] [address] January, [facility] [address] [id number] [address] [place] [address], [place] [address] Dec, [facility] [address] [id number] [address] [place] [address], [place] [address] Dec, [facility] [address] [id number] [address] [place] [address], [place] [address] Dec, [facility] [address] [id number] [address] [place] [address], [place] [address] Dec, [facility] [address] [id number] [address] [place] [address], [place] [address] Dec, [facility] [address] [id number] [address] [place] [address], [place] [address] Dec, [facility] [address] [id number] [address] [place] [address], [place] [address] Dec, [facility] [address] [id number] [address] [place] [address], [place] [address] Dec, [facility] [address] [id number] [address] [place] [address], [place] [address] Dec, [facility] [address] [id number] [address] [place] [address], [place] [address] Dec, [facility] [address] [id number] [facility] [place] [address] Dec, [facility] [address] [id number] [address] [place] [address], [place] [address] Dec, [facility] [address] [id number] [address] [place] [address], [place] [address] Dec, [facility] [address] [id number] [address] [place] [address], [place] [address] Dec, [facility] [address] [id number] [address] [place] [address], [place] [address] Dec, [facility] [address] [id number] [address] [place] [address], [place] [address] Dec, [facility] [address] [id number] [address] [place] [address], [place] [address] Dec, [facility] [address] [id number] [address] [place] [address], [place] [address] Dec, [facility] [address] [id number] [address] [place] [address], [place] [address] Dec, [facility] [address] [id number] [address] [place] [address], [place] [address] Dec, [facility] [address] [id number] [address] [place] [address], [place] [address] Dec, [facility] [address] [id number] [address] [place] [address], [place] [address] Dec, [facility] [address] [id number] [address] [place] [address], [place] [address] Nov, [facility] [address] [id number] [address] [place] [address], [place] [address] Nov, [facility] [address] [id number] [address] [place] [address], [place] [address] Nov, [facility] [address] [id number] [address] [place] [address], [place] [address] Nov, [facility] [address] [id number] [facility] [place] [address] Nov, [facility] [address] [id number] [facility] [place] [address] Nov, [facility] [address] [id number] [facility] [place] [address] Nov, [facility] [address] [id number] [address] [place] [address], [place] [address] Nov, [facility] [address] [id number] [address] [place] [address], [place] [address] Nov, [facility] [address] [id number] [address] [place] [address], [place] [address] Nov, [facility] [address] [id number] [address] [place] [address], [place] [address] Nov, [facility] [address] [id number] [address] [place] [address], [place] [address] Nov, [facility] [address] [id number] [address] [place] [address], [place] [address] Nov, [facility] [address] [id number] [address] [place] [address], [place] [address] Nov, [facility] [address] [id number] [address] [place] [address], [place] [address] Nov, [facility] [address] [id number] [address] [place] [address], [place] [address] Nov, [facility] [address] [id number] [address] [place] [address], [place] [address] Oct, [facility] [address] [id number] [address] [place] [address], [place] [address] Oct, [facility] [address] [id number] [address] [place] [address], [place] [address] Oct, [facility] [address] [id number] [address] [place] [address], [place] [address] Oct, [facility] [address] [id number] [address] [place] [address], [place] [address] Oct, [facility] [address] [id number] [address] [place] [address], [place] [address] Oct, [facility] [address] [id number] [address] [place] [address], [place] [address] Oct, [facility] [address] [id number] [address] [place] [address], [place] [address] Oct, [facility] [address] [id number] [address] [place] [address], [place] [address] Oct, [facility] [address] [id number] [address] [place] [address], [place] [address] Oct, [facility] [address] [id number] [address] [place] [address], [place] [address] Oct, [facility] [address] [id number] [address] [place] [address], [place] [address] Oct, [facility] [address] [id number] [address] [place] [address], [place] [address] Oct, [facility] [address] [id number] [address] [place] [address], [place] [address] Oct, [facility] [address] [id number] [address] [place] [address], [place] [address] Oct, [facility] [address] [id number] [address] [place] [address], [place] [address] Sep, [facility] [address] [id number] [address] [place] [address], [place] [address] Sep, [facility] [address] [id number] [address] [place] [address], [place] [address] Sep, [facility] [address] [id number] [address] [place] [address], [place] [address] 15 Sep, 2013 [facility] [address] [id number] [address] [place] [address], [place] [address] Sep, [facility] [address] [id number] [address] [place] [address], [place] [address] Sep, [facility] [address] [id number] [address] [place] [address], [place] [address] Sep, [facility] [address] [id number] [address] [place] [address], [place] [address] Sep, [facility] [address] [id number] [address] [place] [address], [place] [address] Sep, [facility] [address] [id number] [address] [place] [address], [place] [address] Sep, [facility] [address] [id number] [address] [place] [address], [place] [address] Sep, [facility] [address] [id number] [address] [place] [address], [place] [address] Sep, [facility] [address] [id number] [address] [place] [address], [place] [address] Sep, [facility] [address] [id number] [address] [place] [address], [place] [address] Aug, [facility] [address] [id number] [address] [place] [address], [place] [address] Aug, [facility] [address] [id number] [address] [place] [address], [place] [address] Aug, [facility] [address] [id number] [address] [place] [address], [place] [address] Aug, [facility] [address] [id number] [address] [place] [address], [place] [address] Aug, [facility] [address] [id number] [address] [place] [address], [place] [address] Aug, [facility] [address] [id number] [address] [place] [address], [place] [address] 16 Aug, 2013 [facility] [address] [id number] [address] [place] [address], [place] [address] 16 Aug, 2013 [facility] [address] [id number] [address] [place] [address], [place] [address] 12 Aug, 2013 [facility] [address] [id number] [address] [place] [address], [place] [address] 12 Aug, 2013 [facility] [address] [id number] [address] [place] [address], [place] [address] 10 Aug, 2013 [facility] [address] [id number] [address] [place] [address], [place] [address] 10 Aug, 2013 [facility] [address] [id number] [address] [place] [address], [place] [address] 02 Aug, 2013 [facility] [address] [id number] [address] [place] [address], [place] [address] 02 Aug, 2013 [facility] [address] [id number] [address] [place] [address], [place] [address] 19 Jul, 2013 [facility] [address] [id number] [address] [place] [address], [place] [address] 19 Jul, 2013 [facility] [address] [id number] [address] [place] [address], [place] [address] 18 Jul, 2013 [facility] [address] [id number] [address] [place] [address], [place] [address] 18 Jul, 2013 [facility] [address] [id number] [address] [place] [address], [place] [address] 14 Jul, 2013 [facility] [address] [id number] [address] [place] [address], [place] [address] 14 Jul, 2013 [facility] [address] [id number] [address] [place] [address], [place] [address] 14 Jul, 2013 [facility] [place] [address] [id number] [address] [place] [address], [place] [address] 14 Jul, 2013 [facility] [address] [id number] [address] [place] [address], [place] [address] 07 Jul, 2013 [facility] [address] [id number] [address] [place] [address], [place] [address] 07 Jul, 2013 [facility] [address] [id number] [address] [place] [address], [place] [address] 06 Jul, 2013 [facility] [address] [id number] [address] [place] [address], [place] [address] 06 Jul, 2013 [facility] [address] [id number] [address] [place] [address], [place] [address] 05 Jul, 2013 [facility] [address] [id number] [address] [place] [address], [place] [address] Jul, [facility] [address] [id number] [address] [place] [address], [place] [address] Jun, [facility] [address] [id number] [address] [place] [address], [place] [address] 23 Jun, 2013 [facility] [address] [id number] [address] [place] [address], [place] [address] 15 Jun, 2013 [facility] [address] [id number] [address] [place] [address], [place] [address] 15 Jun, 2013 [facility] [address] [id number] [address] [place] [address], [place] [address] 14 Jun, 2013 [facility] [address] [id number] [address] [place] [address], [place] [address] 24 May, 2013 [facility] [address] [id number] [address] [place] [address], [place] [address] 20 May, 2013 [facility] [address] [id number] [address] [place] [address], [place] [address] 20 May, 2013 [facility] [address] [id number] [address] [place] [address], [place] [address] 20 May, 2013 [facility] [address] [id number] [address] [place] [address], [place] [address] 19 May, 2012 [facility] [address] [id number] [address] [place] [address], [place] [address] 13 May, 2012 [facility] [address] [id number] [address] [place] [address], [place] [address] 12 May, 2012 [facility] [address] [id number] [address] [place] [address], [place] [address] 12 May, 2012 [facility] [address] [id number] [address] [place] [address], [place] [address] 11 May, 2012 [facility] [address] [id number] [address] [place] [address], [place] [address] 11 May, 2012 [facility] [address] [id number] [address] [place] [address], [place] [address] 11 May, 2012 [facility] [address] [id number] [address] [place] [address], [place] [address] 09 May, 2012 [facility] [address] [id number] [address] [place] [address], [place] [address] 05 May, 2012 [facility] [address] [id number] [address] [place] [address], [place] [address] 04 May, 2012 [facility] [address] [id number] [address] [place] [address], [place] [address] 03 May, 2012 [facility] [address] [id number] [address] [place] [address], [place] [address] Apr, [facility] [address] [id number] [address] [place] [address], [place] [address] Apr, [facility] [address] [id number] [address] [place] [address], [place] [address] Apr, [facility] [address] [id number] [address] [place] [address], [place] [address] Apr, [facility] [address] [id number] [address] [place] [address], [place] [address] Apr, [facility] [address] [id number] [address] [place] [address], [place] [address] Apr, [facility] [place] [address] [id number] [address] [place] [address], [place] [address] Apr, [facility] [place] [address] [id number] [address] [place] [address], [place] [address] Apr, [facility] [place] [address] [id number] [address] [place] [address], [place] [address] Apr, [facility] [address] [id number] [address] [place] [address], [place] [address] Mar, [facility] [address] [id number] [address] [place] [address], [place] [address] Mar, [facility] [place] [address] [id number] [address] [place] [address], [place] [address] Mar, [facility] [place] [address] [id number] [address] [place] [address], [place] [address] Mar, [facility] [address] [id number] [address] [place] [address], [place] [address] Mar, [facility] [place] [address] [id number] [address] [place] [address], [place] [address] Mar, [facility] [address] [id number] [address] [place] [address], [place] [address] Mar, [facility] [place] [address] [id number] [address] [place] [address], [place] [address] Mar, [facility] [address] [id number] [address] [place] [address], [place] [address] Mar, [facility] [address] [id number] [address] [place] [address], [place] [address] Mar, [facility] [address] [id number] [address] [place] [address], [place] [address] Mar, [facility] [place] [address] [id number] [address] [place] [address], [place] [address] Feb, [facility] [address] [id number] [address] [place] [address], [place] [address] Feb, [facility] [address] [id number] [address] [place] [address], [place] [address] Feb, [facility] [address] [id number] [address] [place] [address], [place] [address] Feb, [facility] [address] [id number] [address] [place] [address], [place] [address] Feb, [facility] [address] [id number] [address] [place] [address], [place] [address] Feb, [facility] [address] [id number] [address] [place] [address], [place] [address] Feb, [facility] [address] [id number] [address] [place] [address], [place] [address] Feb, [facility] [address] [id number] [address] [place] [address], [place] [address] Feb, [facility] [address] [id number] [address] [place] [address], [place] [address] January, [facility] [address] [id number] [address] [place] [address], [place] [address] January, [facility] [address] [id number] [address] [place] [address], [place] [address] January, [facility] [address] [id number] [address] [place] [address], [place] [address] January, [facility] [address] [id number] [address] [place] [address], [place] [address] January, [facility] [address] [id number] [address] [place] [address], [place] [address] January, [facility] [address] [id number] [address] [place] [address], [place] [address] January, [facility] [address] [id number] [address] [place] [address], [place] [address] January, [facility] [address] [id number] [address] [place] [address], [place] [address] January, [facility] [address] [id number] [address] [place] [address], [place] [address] January, [facility] [address] [id number] [address] [place] [address], [place] [address] January, [facility] [address] [id number] [address] [place] [address], [place] [address] January, [facility] [address] [id number] [address] [place] [address], [place] [address] January, [facility] [address] [id number] [address] [place] [address], [place] [address] January, [facility] [address] [id number] [address] [place] [address], [place] [address] January, [facility] [address] [id number] [address] [place] [address], [place] [address] January, [facility] [address] [id number] [address] [place] [address], [place] [address] January, [facility] [address] [id number] [address] [place] [address], [place] [address] January, [facility] [address] [id number] [address] [place] [address], [place] [address] January, [facility] [address] [id number] [address] [place] [address], [place] [address] January, [facility] [address] [id number] [address] [place] [address], [place] [address] January, [facility] [address] [id number] [address] [place] [address], [place] [address] January, [facility] [address] [id number] [address] [place] [address], [place] [address] January, [facility] [address] [id number] [address] [place] [address], [place] [address] 19 Dec, 2012 [facility] [address] [id number] [address] [place] [address], [place] [address] 18 Dec, 2012 [facility] [address] [id number] [address] [place] [address], [place] [address] 17 Dec, 2012 [facility] [address] [id number] [address] [place] [address], [place] [address] 16 Dec, 2012 [facility] [address] [id number] [address] [place] [address], [place] [address] Dec, [facility] [address] [id number] [address] [place] [address], [place] [address] Nov, [facility] [address] [id number] [address] [place] [address], [place] [address] Oct, [facility] [address] [id number] [address] [place] [address], [place] [address] Oct, [facility] [address] [id number] [address] [place] [address], [place] [address] Oct, [facility] [address] [id number] [address] [place] [address], [place] [address] Oct, [facility] [address] [id number] [address] [place] [address], [place] [address] Oct, [facility] [address] [id number] [address] [place] [address], [place] [address] Sep, [facility] [address] [id number] [address] [place] [address], [place] [address] Sep, [facility] [address] [id number] [address] [place] [address], [place] [address] Sep, [facility] [address] [id number] [address] [place] [address], [place] [address] Aug, [facility] [address] [id number] [address] [place] [address], [place] [address] Aug, [facility] [address] [id number] [address] [place] [address], [place] [address] Aug, [facility] [address] [id number] [address] [place] [address], [place] [address] Aug, [facility] [address] [id number] [address] [place] [address], [place] [address] Jul, [facility] [address] [id number] [address] [place] [address] Jul, [facility] [address] [id number] [address] [place] [address], [place] [address] Jul, [facility] [address] [id number] [address] [place] [address], [place] [address] Jul, [facility] [address] [address] [id number] [address] [place] [address], [place] [address] Jul, [facility] [address] [id number] [address] [place] [address], [place] [address] Jul, [facility] [address] [id number] [address] [place] [address], [place] [address] Jun, [facility] [address] [id number] [address] [place] [address], [place] [address] Jun, [facility] [address] [id number] [address] [place] [id number] Jun, [facility] [address] [id number] [address] [place] [id number] Jun, [facility] [address] [id number] [address] [place] [address], [place] [address] Jun, [facility] [address] [id number] [address] [place] [id number] Jun, [facility] [address] [id number] [address] [place] [address], [place] [address] Jun, [facility] [address] [id number] [address] [place] [address], [place] [address] Jun, [facility] [address] [id number] [address] [place] [address], [place] [address] Jun, [facility] [address] [id number] [address] [place] [address], [place] [address] Jun, [facility] [address] [id number] [address] [place] [address], [place] [address] May, [facility] [address] [id number] [address] [place] [address], [place] [address] May, [facility] [address] [id number] [address] [place] [address], [place] [address] May, [facility] [address] [id number] [address] [place] [address], [place] [address] Apr, [facility] [address] [id number] [address] [place] [address], [place] [address] Apr, [facility] [address] [id number] [address] [place] [address], [place] [address] Apr, [facility] [address] [id number] [address] [place] [address], [place] [address] Apr, [facility] [place] [address] [id number] [address] [place] [address], [place] [address] Apr, [facility] [address] [id number] [address] [place] [address], [place] [address] Apr, [facility] [address] [id number] [address] [place] [address], [place] [address] Apr, [facility] [address] [id number] [address] [place] [address], [place] [address] Apr, [facility] [address] [id number] [address] [place] [address], [place] [address] Apr, [facility] [address] [id number] [address] [place] [address], [place] [address] Mar, [facility] [address] [id number] [address] [place] [address], [place] [address] Mar, [facility] [address] [id number] [address] [place] [address], [place] [address] Mar, [facility] [address] [id number] [address] [place] [address], [place] [address] Mar, [facility] [address] [id number] [address] [place] [address], [place] [address] Feb, [facility] [address] [id number] [address] [place] [address], [place] [address] Feb, [facility] [address] [id number] [address] [place] [address], [place] [address] Feb, [facility] [address] [id number] [address] [place] [address], [place] [address] January, [facility] [address] [id number] [address] [place] [address], [place] [address] January, [facility] [address] [id number] [address] [place] [address], [place] [address] January, [facility] [address] [id number] [address] [place] [address], [place] [address] January, [facility] [address] [id number] [address] [place] [address], [place] [address] January, [facility] [address] [id number] [address] [place] [address], [place] [address] Dec, [facility] [address] [id number] [address] [place] [address], [place] [address] Dec, [facility] [address] [id number] [address] [place] [address], [place] [address] Dec, [facility] [address] [id number] [address] [place] [address], [place] [address] Oct, [facility] [address] [id number] [address] [place] [address], [place] [address] Oct, [facility] [address] [id number] [address] [place] [address], [place] [address] Oct, [facility] [address] [id number] [address] [place] [address], [place] [address] Sep, [facility] [address] [id number] [address] [place] [address], [place] [address] Sep, [facility] [address] [id number] [address] [place] [address], [place] [address] Aug, [facility] [address] [id number] [address] [place] [address], [place] [address] Jul, [facility] [address] [id number] [address] [place] [address], [place] [address] Jul, [facility] [address] [id number] [address] [place] [address], [place] [address] Mar, [facility] [address] [id number] [address] [place] [address], [place] [address] Aug, [facility] [address] [id number] [address] [place] [address], [place] [address] Jul, [facility] [address] [id number] [address] [place] [address], [place] [address] Jul, [facility] [address] [id number] [address] [place] [address], [place] [address] Jul, [facility] [address] [id number] [address] [place] [address], [place] [address] Jul, [facility] [address] [id number] [address] [place] [address], [place] [address] 14 Jun, 2010 [facility] [address] [id number] [address] [place] [address], [place] [address] Jun, [facility] [address] [id number] [address] [place] [address] Apr, [facility] [place] [address] [id number] [address] [place] [id number] Aug, [facility] [place] [address] [id number] [address] [place] [id number] Jul, [facility] [place] [address] [id number] [address] [place] [id number] Jul, [facility] [place] [address] [id number] [address] [place] [id number] Jul, [facility] [place] [address] [id number] [address] [place] [id number] Jun, [facility] [place] [address] [id number] [address] [place] [id number] 10 May, 2009 [facility] [place] [address] [id number] [address] [place] [id number] 14 Dec, 2008 [facility] [place] [address] [id number] [address] [place] [id number] Nov, [facility] [place] [address] [id number] [address] [place] [id number] Oct, [facility] [place] [address] [id number] [address] [place] [id number] Aug, [facility] [place] [address] [id number] [address] [place] [id number] Aug, [facility] [place] [address] [id number] [address] [place] [id number] Jun, IMMUNIZATIONS No Known Immunizations SOCIAL HISTORY [...] x 3 day s 04/2012 Hospitalization History [facility] [place]- Right wrist injury 03/29/2018
--- OUTSIDE RECORDS SUMMARY | 2020-04-09 00:18 | XMS REPORT ---
Author Author Kateryna LAURENT Organization [facility] Address [address] [place] [address] Care Team Providers Care Senior Marketing Coordinator Name Role Phone AYMILETH LAURENT Unavailable PROBLEMS Type Condition ICD9-CM Code BML91-AJ Code Onset Dates Condition S tatus SNOMED Code Problem Irregular menses N92.6 Active 801 54560 Problem Migraine with aura and without status migrainosu s, not intractable G43.109 Active 5212420 Problem Uncontrolled type 2 diabetes mellitus with hyperglycemia E11.65 Active 497025183 Problem Morbid obesity due to excess calories E66.01 Active 346453934 Problem RLS (restless legs syndrome) G25.81 A ctive 08914219 Problem Morbid obesity E66.01 Active 60417 6002 ALLERGIES No Information ENCOUNTERS Encounter Location Date Diagnosis [facility] [address] [facility] [id number] [address] [place] [address] Dec, [facility] [address] [facility] [id number] [address] [place] [address] Nov, [facility] [address] [facility] [id number] [address] [place] [address] Nov, [facility] [address] [facility] [id number] [address] [place] [address] Nov, [facility] [address] [id number] [address] [place] [address] Nov, RLS (restless legs syndrome) G25.81 [facility] [address] [id number] [address] [place] [address] 15 Oct, 2019 [facility] [address] [facility] [id number] [address] [place] [address] 09 Oct, 2019 Influenza J11.1 [facility] [address] [id number] [address] [place] [address] 16 Sep, 2019 [facility] [address] [id number] [address] [place] [address] 14 Sep, 2019 [facility] [address] [id number] [address] [place] [address] 14 Sep, 2019 [facility] [address] [id number] [address] [place] [address] 13 Sep, 2019 [facility] [address] [id number] [address] [place] [address] 10 Sep, 2019 Pneumonia of left lower lobe due to infectious organism J18.9 and Migraine with aura and without status migrainosus, not intractable G43.109 [facility] [address] [id number] [address] [place] [address] 10 Sep, 2019 [facility] [address] [id number] [address] [place] [address] 10 Sep, 2019 [facility] [address] [id number] [address] [place] [address] 08 Sep, 2019 [facility] [address] [id number] [address] [place] [address] 08 Sep, 2019 [facility] [address] [facility] [id number] [address] [place] [address] 08 Sep, 2019 Pneumonia of left lower lobe due to infectious organism J18.9 and Migraine with aura and without status migrainosus, not intractable G43.109 [facility] [address] [id number] [address] [place] [address] Aug, Irregular menses N92.6 ; Wel l woman exam Z01.419 ; Pelvic cramping R10.2 and Left breast lump N63.20 [facility] [address] [id number] [address] [place] [address] Aug, [facility] [address] [id number] [address] [place] [address] Aug, Well woman exam Z01.419 ; Le ft breast lump N63.20 ; Irregular menses N92.6 ; Encounter for immunization Z23 ; Pelvic cramping R10.2 and Screening for cervical cancer Z12.4 [facility] [address] [id number] [address] [place] [address] Aug, [facility] [address] [id number] [address] [place] [address] Aug, [facility] [address] [facility] [id number] [address] [place] [address] Aug, [facility] [address] [id number] [place] [address] Jul, [facility] [address] [id number] [address] [place] [address] Jun, [facility] [address] [place] [id number] [place] [address] Jun, [facility] [address] [facility] [id number] [address] [place] [address] Jun, [facility] [address] [place] [id number] [place] [address] Jun, BMI 50.0-59.9, adult Z68.43 [facility] [address] [facility] [id number] [address] [place] [address] Jun, [facility] [address] [facility] [id number] [address] [place] [address] May, Acute non-recurrent sinusiti s, unspecified location J01.90 ; Diarrhea, unspecified R19.7 ; Vomiting, unspecified R11.10 and Morbid obesity E66.01 [facility] [address] [facility] [id number] [address] [place] [address] Apr, [facility] [address] [facility] [id number] [address] [place] [address] Apr, Anemia due to other cause, n ot classified D64.89 and D-dimer, elevated R79.89 [facility] [address] [id number] [address] [place] [address] Apr, [facility] [address] [id number] [address] [place] [address] Apr, [facility] [address] [id number] [address] [place] [address] Mar, Anemia due to other cause, n ot classified D64.89 and D-dimer, elevated R79.89 [facility] [address] [id number] [address] [place] [address] Mar, Leg edema, right R60.0 ; Hig h risk medication use Z79.899 and Morbid obesity E66.01 [place] [address] [facility] [id number] [address] [place] [address] Mar, BMI 50.0-59.9, adult Z68.43 [place] [address] [id number] [address] [place] [address] Mar, [place] [address] [facility] [id number] [address] [place] [address] January, Uncontrolled type 2 diabetes mellitus with hyperglycemia E11.65 ; RLS (restless legs syndrome) G25.81 and Morbid obesity E66.01 [place] [address] [id number] [address] [place] [address] Oct, Lipoma of right lower extrem ity D17.23 [place] [address] [id number] [address] [place] [address] Oct, Lipoma of right lower extrem ity D17.23 [place] [address] [id number] [address] [place] [address] Sep, [place] [address] [id number] [address] [place] [address] Sep, [place] [address] [id number] [address] [place] [address] Sep, [facility] [address] [id number] [address] [place] [address] Sep, [facility] [address] [id number] [address] [place] [address] Sep, [facility] [address] [id number] [address] [place] [address] Aug, Uncontrolled type 2 diabetes mellitus with hyperglycemia E11.65 ; Morbid obesity due to excess calories E66.01 ; Lipoma of torso D17.1 and BMI 50.0-59.9, adult Z68.43 [facility] [address] [id number] [address] [place] [address] Jun, Encounter for immunization Z 23 [facility] [address] [id number] [address] [place] [address] Jul, [facility] [address] [id number] [address] [place] [address] Jun, Encounter for immunization Z 23 [facility] [address] [id number] [address] [place] [address] May, [facility] [address] [id number] [address] [place] [address] Jun, Encounter for immunization Z 23 [facility] [address] [id number] [address] [place] [address] May, [facility] [address] [id number] [address] [place] [address] May, [facility] [address] [id number] [address] [place] [address] Apr, [facility] [address] [id number] [address] [place] [address] Feb, [facility] [address] [id number] [address] [place] [address] Feb, [facility] [address] [id number] [address] [place] [address], [place] [address] Feb, [facility] [address] [id number] [address] [place] [address], [place] [address] January, [facility] [address] [id number] [address] [place] [address], [place] [address] January, [facility] [address] [id number] [address] [place] [address], [place] [address] Dec, [facility] [address] [id number] [address] [place] [address], [place] [address] Dec, [facility] [address] [id number] [address] [place] [address], [place] [address] Nov, [facility] [address] [id number] [address] [place] [address], [place] [address] Nov, [facility] [address] [id number] [address] [place] [address], [place] [address] Nov, [facility] [address] [id number] [address] [place] [address], [place] [address] Nov, [facility] [address] [id number] [address] [place] [address], [place] [address] Nov, [facility] [address] [id number] [address] [place] [address], [place] [address] Nov, [facility] [address] [id number] [address] [place] [address], [place] [address] Nov, [facility] [address] [id number] [address] [place] [address], [place] [address] Oct, [facility] [address] [id number] [address] [place] [address], [place] [address] Oct, [facility] [address] [id number] [address] [place] [address], [place] [address] Oct, [facility] [address] [id number] [address] [place] [address], [place] [address] Oct, [facility] [address] [id number] [address] [place] [address], [place] [address] Oct, [facility] [address] [id number] [address] [place] [address], [place] [address] Sep, [facility] [address] [id number] [address] [place] [address], [place] [address] Sep, [facility] [address] [id number] [address] [place] [address], [place] [address] Sep, [facility] [address] [id number] [address] [place] [address], [place] [address] Sep, [facility] [address] [id number] [address] [place] [address], [place] [address] Sep, [facility] [address] [id number] [address] [place] [address], [place] [address] Sep, [facility] [address] [id number] [address] [place] [address], [place] [address] Sep, [facility] [address] [id number] [address] [place] [address], [place] [address] Sep, [facility] [address] [id number] [address] [place] [address], [place] [address] Sep, [facility] [address] [id number] [address] [place] [address], [place] [address] Sep, [facility] [address] [id number] [address] [place] [address], [place] [address] Aug, [facility] [address] [id number] [address] [place] [address], [place] [address] Aug, [facility] [address] [id number] [address] [place] [address], [place] [address] Aug, [facility] [address] [id number] [address] [place] [address], [place] [address] Aug, [facility] [address] [id number] [address] [place] [address], [place] [address] Aug, [facility] [address] [id number] [address] [place] [address], [place] [address] Aug, [facility] [address] [id number] [address] [place] [address], [place] [address] Aug, [facility] [address] [id number] [address] [place] [address], [place] [address] Aug, [facility] [address] [id number] [address] [place] [address], [place] [address] Aug, [facility] [address] [id number] [address] [place] [address], [place] [address] Aug, [facility] [address] [id number] [address] [place] [address], [place] [address] Aug, [facility] [address] [id number] [address] [place] [address], [place] [address] Aug, [facility] [address] [id number] [address] [place] [address], [place] [address] Aug, [facility] [address] [id number] [address] [place] [address], [place] [address] Aug, [facility] [address] [id number] [address] [place] [address], [place] [address] Aug, [facility] [address] [id number] [address] [place] [address], [place] [address] Aug, [facility] [address] [id number] [address] [place] [address], [place] [address] 16 Aug, 2014 [facility] [address] [id number] [address] [place] [address], [place] [address] Aug, [facility] [address] [id number] [address] [place] [address], [place] [address] Aug, [facility] [address] [id number] [address] [place] [address], [place] [address] Aug, [facility] [address] [id number] [address] [place] [address], [place] [address] 08 Aug, 2014 [facility] [address] [id number] [address] [place] [address], [place] [address] 08 Aug, 2014 [facility] [address] [id number] [address] [place] [address], [place] [address] Aug, [facility] [address] [id number] [address] [place] [address], [place] [address] Aug, [facility] [address] [id number] [address] [place] [address], [place] [address] Jul, [facility] [address] [id number] [address] [place] [address], [place] [address] Jul, [facility] [address] [id number] [address] [place] [address], [place] [address] Jun, [facility] [address] [id number] [address] [place] [address], [place] [address] 27 Jun, 2014 [facility] [address] [id number] [address] [place] [address], [place] [address] 17 Jun, 2014 [facility] [address] [id number] [address] [place] [address] 17 Jun, 2014 [facility] [address] [id number] [address] [place] [address], [place] [address] 15 Jun, 2014 [facility] [address] [id number] [address] [place] [address] 15 Jun, 2014 [facility] [address] [id number] [address] [place] [address], [place] [address] 14 Jun, 2014 [facility] [address] [id number] [address] [place] [address], [place] [address] 14 Jun, 2014 [facility] [address] [id number] [address] [place] [address], [place] [address] 13 Jun, 2014 [facility] [address] [id number] [address] [place] [address], [place] [address] Jun, [facility] [address] [id number] [address] [place] [address], [place] [address] Jun, [facility] [address] [id number] [address] [place] [address], [place] [address] Jun, [facility] [address] [id number] [address] [place] [address], [place] [address] Jun, [facility] [address] [id number] [address] [place] [address], [place] [address] Jun, [facility] [address] [id number] [address] [place] [address], [place] [address] May, [facility] [address] [id number] [address] [place] [address], [place] [address] May, 2013 [facility] [address] [id number] [address] [place] [address], [place] [address] May, 2013 [facility] [address] [id number] [address] [place] [address], [place] [address] May, 2013 [facility] [address] [id number] [address] [place] [address], [place] [address] May, 2013 [facility] [address] [id number] [address] [place] [address], [place] [address] May, [facility] [address] [id number] [address] [place] [address], [place] [address] May, 2013 [facility] [address] [id number] [address] [place] [address], [place] [address] May, 2013 [facility] [address] [id number] [address] [place] [address], [place] [address] Apr, [facility] [address] [id number] [address] [place] [address], [place] [address] Apr, [facility] [address] [id number] [address] [place] [address], [place] [address] Apr, [facility] [address] [id number] [facility] [place] [address] Apr, [facility] [address] [id number] [facility] [place] [address] Apr, [facility] [address] [id number] [facility] [place] [address] Apr, [facility] [address] [id number] [address] [place] [address], [place] [address] Apr, [facility] [address] [id number] [address] [place] [address], [place] [address] Apr, [facility] [address] [id number] [address] [place] [address], [place] [address] Apr, [facility] [address] [id number] [address] [place] [address], [place] [address] Mar, [facility] [address] [id number] [address] [place] [address], [place] [address] Mar, [facility] [address] [id number] [address] [place] [address], [place] [address] Mar, [facility] [address] [id number] [address] [place] [address], [place] [address] Feb, [facility] [address] [id number] [address] [place] [address], [place] [address] Feb, [facility] [address] [id number] [address] [place] [address], [place] [address] Feb, [facility] [address] [id number] [address] [place] [address], [place] [address] Feb, [facility] [address] [id number] [address] [place] [address], [place] [address] Feb, [facility] [address] [id number] [address] [place] [address], [place] [address] Feb, [facility] [address] [id number] [address] [place] [address], [place] [address] Feb, [facility] [address] [id number] [facility] [place] [address] Feb, [facility] [address] [id number] [address] [place] [address], [place] [address] Feb, [facility] [address] [id number] [facility] [place] [address] Feb, [facility] [address] [id number] [address] [place] [address], [place] [address] Feb, [facility] [address] [id number] [address] [place] [address], [place] [address] Feb, [facility] [address] [id number] [address] [place] [address], [place] [address] Feb, [facility] [address] [id number] [address] [place] [address], [place] [address] Feb, [facility] [address] [id number] [address] [place] [address], [place] [address] Feb, [facility] [address] [id number] [address] [place] [address], [place] [address] Feb, [facility] [address] [id number] [address] [place] [address], [place] [address] January, [facility] [address] [id number] [address] [place] [address], [place] [address] January, [facility] [address] [id number] [address] [place] [address], [place] [address] January, [facility] [address] [id number] [address] [place] [address], [place] [address] January, [facility] [address] [id number] [address] [place] [address], [place] [address] January, [facility] [address] [id number] [address] [place] [address], [place] [address] January, [facility] [address] [id number] [facility] [place] [address] January, [facility] [address] [id number] [address] [place] [address], [place] [address] January, [facility] [address] [id number] [address] [place] [address], [place] [address] January, [facility] [address] [id number] [address] [place] [address], [place] [address] January, [facility] [address] [id number] [address] [place] [address], [place] [address] January, [facility] [address] [id number] [address] [place] [address], [place] [address] January, [facility] [address] [id number] [address] [place] [address], [place] [address] January, [facility] [address] [id number] [address] [place] [address], [place] [address] January, [facility] [address] [id number] [address] [place] [address], [place] [address] January, [facility] [address] [id number] [address] [place] [address], [place] [address] January, [facility] [address] [id number] [address] [place] [address], [place] [address] January, [facility] [address] [id number] [address] [place] [address], [place] [address] January, [facility] [address] [id number] [address] [place] [address], [place] [address] January, [facility] [address] [id number] [address] [place] [address], [place] [address] January, [facility] [address] [id number] [address] [place] [address], [place] [address] January, [facility] [address] [id number] [address] [place] [address], [place] [address] January, [facility] [address] [id number] [address] [place] [address], [place] [address] January, [facility] [address] [id number] [address] [place] [address], [place] [address] January, [facility] [address] [id number] [address] [place] [address], [place] [address] January, [facility] [address] [id number] [address] [place] [address], [place] [address] January, [facility] [address] [id number] [address] [place] [address], [place] [address] Dec, [facility] [address] [id number] [address] [place] [address], [place] [address] Dec, [facility] [address] [id number] [address] [place] [address], [place] [address] Dec, [facility] [address] [id number] [address] [place] [address], [place] [address] Dec, [facility] [address] [id number] [address] [place] [address], [place] [address] Dec, [facility] [address] [id number] [address] [place] [address], [place] [address] Dec, [facility] [address] [id number] 01 [place] [address], [place] [address] Dec, [facility] [address] [id number] [address] [place] [address], [place] [address] Dec, [facility] [address] [id number] [address] [place] [address], [place] [address] Dec, [facility] [address] [id number] [address] [place] [address], [place] [address] Dec, [facility] [address] [id number] [address] [place] [address], [place] [address] Dec, [facility] [address] [id number] [address] [place] [address], [place] [address] Dec, [facility] [address] [id number] [address] [place] [address], [place] [address] Dec, [facility] [address] [id number] [address] [place] [address], [place] [address] Dec, [facility] [address] [id number] [address] [place] [address], [place] [address] Dec, [facility] [address] [id number] [address] [place] [address], [place] [address] Dec, [facility] [address] [id number] [address] [place] [address], [place] [address] Dec, [facility] [address] [id number] [address] [place] [address], [place] [address] Dec, [facility] [address] [id number] [address] [place] [address], [place] [address] Dec, [facility] [address] [id number] [address] [place] [address], [place] [address] Dec, [facility] [address] [id number] [address] [place] [address], [place] [address] Dec, [facility] [address] [id number] [address] [place] [address], [place] [address] Dec, [facility] [address] [id number] [address] [place] [address], [place] [address] Nov, [facility] [address] [id number] [address] [place] [address], [place] [address] 31 Nov, 2013 [facility] [address] [id number] [address] [place] [address], [place] [address] Nov, [facility] [address] [id number] [address] [place] [address], [place] [address] Nov, [facility] [address] [id number] [address] [place] [address], [place] [address] 24 Nov, 2013 [facility] [address] [id number] [facility] [place] [address] 24 Nov, 2013 [facility] [address] [id number] [facility] [place] [address] 22 Nov, 2013 [facility] [address] [id number] [facility] [place] [address] 22 Nov, 2013 [facility] [address] [id number] [address] [place] [address], [place] [address] 18 Nov, 2013 [facility] [address] [id number] [address] [place] [address], [place] [address] 18 Nov, 2013 [facility] [address] [id number] [address] [place] [address], [place] [address] 18 Nov, 2013 [facility] [address] [id number] [address] [place] [address], [place] [address] 18 Nov, 2013 [facility] [address] [id number] [address] [place] [address], [place] [address] 14 Nov, 2013 [facility] [address] [id number] [address] [place] [address], [place] [address] 14 Nov, 2013 [facility] [address] [id number] [address] [place] [address], [place] [address] 06 Nov, 2013 [facility] [address] [id number] [address] [place] [address], [place] [address] 06 Nov, 2013 [facility] [address] [id number] [address] [place] [address], [place] [address] 28 Oct, 2013 [facility] [address] [id number] [address] [place] [address], [place] [address] Oct, [facility] [address] [id number] [address] [place] [address], [place] [address] 24 Oct, 2013 [facility] [address] [id number] [address] [place] [address], [place] [address] 24 Oct, 2013 [facility] [address] [id number] [address] [place] [address], [place] [address] Oct, [facility] [address] [id number] [address] [place] [address], [place] [address] Oct, [facility] [address] [id number] [address] [place] [address], [place] [address] Oct, [facility] [address] [id number] [address] [place] [address], [place] [address] Oct, [facility] [address] [id number] [address] [place] [address], [place] [address] Oct, [facility] [address] [id number] [address] [place] [address], [place] [address] Oct, [facility] [address] [id number] [address] [place] [address], [place] [address] Oct, [facility] [address] [id number] [address] [place] [address], [place] [address] Oct, [facility] [address] [id number] [address] [place] [address], [place] [address] Oct, [facility] [address] [id number] [address] [place] [address], [place] [address] 04 Oct, 2013 [facility] [address] [id number] [address] [place] [address], [place] [address] Oct, [facility] [address] [id number] [address] [place] [address], [place] [address] Sep, [facility] [address] [id number] [address] [place] [address], [place] [address] Sep, [facility] [address] [id number] [address] [place] [address], [place] [address] 15 Sep, 2013 [facility] [address] [id number] [address] [place] [address], [place] [address] 15 Sep, 2013 [facility] [address] [id number] [address] [place] [address], [place] [address] Sep, [facility] [address] [id number] [address] [place] [address], [place] [address] 14 Sep, 2013 [facility] [address] [id number] [address] [place] [address], [place] [address] Sep, [facility] [address] [id number] [address] [place] [address], [place] [address] Sep, [facility] [address] [id number] [address] [place] [address], [place] [address] Sep, [facility] [address] [id number] [address] [place] [address], [place] [address] Sep, [facility] [address] [id number] [address] [place] [address], [place] [address] Sep, [facility] [address] [id number] [address] [place] [address], [place] [address] Sep, [facility] [address] [id number] [address] [place] [address], [place] [address] Sep, [facility] [address] [id number] [address] [place] [address], [place] [address] Aug, [facility] [address] [id number] [address] [place] [address], [place] [address] Aug, [facility] [address] [id number] [address] [place] [address], [place] [address] Aug, [facility] [address] [id number] [address] [place] [address], [place] [address] 24 Aug, 2013 [facility] [address] [id number] [address] [place] [address], [place] [address] Aug, [facility] [address] [id number] [address] [place] [address], [place] [address] 17 Aug, 2013 [facility] [address] [id number] [address] [place] [address], [place] [address] 16 Aug, 2013 [facility] [address] [id number] [address] [place] [address] 16 Aug, 2013 [facility] [address] [id number] [address] [place] [address], [place] [address] 12 Aug, 2013 [facility] [address] [id number] [address] [place] [address], [place] [address] 12 Aug, 2013 [facility] [address] [id number] [address] [place] [address], [place] [address] 10 Aug, 2013 [facility] [address] [id number] [address] [place] [address], [place] [address] 10 Aug, 2013 [facility] [address] [id number] [address] [place] [address], [place] [address] 02 Aug, 2013 [facility] [address] [id number] [address] [place] [address], [place] [address] 02 Aug, 2013 [facility] [address] [id number] [address] [place] [address], [place] [address] 19 Jul, 2013 [facility] [address] [id number] [address] [place] [address], [place] [address] 19 Jul, 2013 [facility] [address] [id number] [address] [place] [address], [place] [address] 18 Jul, 2013 [facility] [address] [id number] [address] [place] [address], [place] [address] 18 Jul, 2013 [facility] [address] [id number] [address] [place] [address], [place] [address] 14 Jul, 2013 [facility] [address] [id number] [address] [place] [address], [place] [address] 14 Jul, 2013 [facility] [address] [id number] [address] [place] [address], [place] [address] 14 Jul, 2013 [facility] [address] [id number] [address] [place] [address], [place] [address] 14 Jul, 2013 [facility] [address] [id number] [address] [place] [address], [place] [address] 07 Jul, 2013 [facility] [address] [id number] [address] [place] [address], [place] [address] 07 Jul, 2012 [facility] [address] [id number] [address] [place] [address], [place] [address] 06 Jul, 2013 [facility] [address] [id number] [address] [place] [address], [place] [address] 06 Jul, 2013 [facility] [address] [id number] [address] [place] [address], [place] [address] 05 Jul, 2013 [facility] [address] [id number] [address] [place] [address], [place] [address] 05 Jul, 2013 [facility] [address] [id number] [address] [place] [address], [place] [address] Jun, [facility] [address] [id number] [address] [place] [address], [place] [address] 23 Jun, 2013 [facility] [address] [id number] [address] [place] [address], [place] [address] 15 Jun, 2013 [facility] [address] [id number] [address] [place] [address], [place] [address] 15 Jun, 2013 [facility] [address] [id number] [address] [place] [address], [place] [address] 14 Jun, 2013 [facility] [address] [id number] [address] [place] [address], [place] [address] 24 May, 2012 [facility] [address] [id number] [address] [place] [address], [place] [address] 20 Sep, 2012 [facility] [address] [id number] [address] [place] [address], [place] [address] 20 Sep, 2012 [facility] [address] [id number] [address] [place] [address], [place] [address] 20 Sep, 2012 [facility] [address] [id number] [address] [place] [address], [place] [address] 19 Sep, 2012 [facility] [address] [id number] [address] [place] [address], [place] [address] 13 May, 2012 [facility] [address] [id number] [facility] [place] [address] 12 May, 2012 [facility] [address] [id number] [address] [place] [address], [place] [address] 12 May, 2012 [facility] [address] [id number] [address] [place] [address], [place] [address] 11 May, 2012 [facility] [address] [id number] [address] [place] [address], [place] [address] 11 May, 2012 [facility] [address] [id number] [address] [place] [address], [place] [address] 11 May, 2012 [facility] [address] [id number] [address] [place] [address], [place] [address] 09 May, 2012 [facility] [address] [id number] [address] [place] [address], [place] [address] 05 May, 2012 [facility] [address] [id number] [address] [place] [address], [place] [address] 04 May, 2012 [facility] [address] [id number] [address] [place] [address], [place] [address] 03 May, 2012 [facility] [address] [id number] [address] [place] [address], [place] [address] Apr, [facility] [address] [id number] [address] [place] [address], [place] [address] Apr, [facility] [address] [id number] [address] [place] [address], [place] [address] Apr, [facility] [address] [id number] [address] [place] [address], [place] [address] Apr, [facility] [address] [id number] [address] [place] [address], [place] [address] Apr, [facility] [address] [id number] [address] [place] [address], [place] [address] Apr, [facility] [address] [id number] [address] [place] [address], [place] [address] Apr, [facility] [address] [id number] [address] [place] [address], [place] [address] Apr, [facility] [address] [id number] [address] [place] [address], [place] [address] Apr, [facility] [address] [id number] [address] [place] [address], [place] [address] Mar, [facility] [address] [id number] [address] [place] [address], [place] [address] Mar, [facility] [address] [id number] [address] [place] [address], [place] [address] Mar, [facility] [address] [id number] [address] [place] [address], [place] [address] Mar, [facility] [address] [id number] [address] [place] [address], [place] [address] Mar, [facility] [address] [id number] [address] [place] [address], [place] [address] Mar, [facility] [address] [id number] [address] [place] [address], [place] [address] Mar, [facility] [address] [id number] [address] [place] [address], [place] [address] Mar, [facility] [address] [id number] [address] [place] [address], [place] [address] Mar, [facility] [address] [id number] [address] [place] [address], [place] [address] Mar, [facility] [address] [id number] [address] [place] [address], [place] [address] Mar, [facility] [address] [id number] [address] [place] [address], [place] [address] Feb, [facility] [address] [id number] [address] [place] [address], [place] [address] Feb, [facility] [address] [id number] [address] [place] [address], [place] [address] Feb, [facility] [address] [id number] [address] [place] [address], [place] [address] Feb, [facility] [address] [id number] [address] [place] [address], [place] [address] Feb, [facility] [address] [id number] [address] [place] [address], [place] [address] Feb, [facility] [address] [id number] [address] [place] [address], [place] [address] Feb, [facility] [address] [id number] [address] [place] [address], [place] [address] Feb, [facility] [address] [id number] [address] [place] [address], [place] [address] Feb, [facility] [address] [id number] [address] [place] [address], [place] [address] January, [facility] [address] [id number] [address] [place] [address], [place] [address] January, [facility] [address] [id number] [address] [place] [address], [place] [address] January, [facility] [address] [id number] [address] [place] [address], [place] [address] January, [facility] [address] [id number] [address] [place] [address], [place] [address] January, [facility] [address] [id number] [address] [place] [address], [place] [address] January, [facility] [address] [id number] [address] [place] [address], [place] [address] January, [facility] [address] [id number] [address] [place] [address], [place] [address] January, [facility] [address] [id number] [address] [place] [address], [place] [address] January, [facility] [address] [id number] [address] [place] [address], [place] [address] January, [facility] [address] [id number] [address] [place] [address], [place] [address] January, [facility] [address] [id number] [address] [place] [address], [place] [address] January, [facility] [address] [id number] [address] [place] [address], [place] [address] January, [facility] [address] [id number] [address] [place] [address], [place] [address] January, [facility] [address] [id number] [address] [place] [address], [place] [address] January, [facility] [address] [id number] [address] [place] [address], [place] [address] January, [facility] [address] [id number] [address] [place] [address], [place] [address] January, [facility] [address] [id number] [address] [place] [address], [place] [address] January, [facility] [address] [id number] [address] [place] [address], [place] [address] January, [facility] [address] [id number] [address] [place] [address], [place] [address] January, [facility] [address] [id number] [address] [place] [address], [place] [address] January, [facility] [address] [id number] [address] [place] [address], [place] [address] January, [facility] [address] [id number] [address] [place] [address], [place] [address] January, [facility] [address] [id number] [address] [place] [address], [place] [address] Dec, [facility] [address] [id number] [address] [place] [address], [place] [address] 18 Dec, 2012 [facility] [address] [id number] [address] [place] [address], [place] [address] 17 Dec, 2012 [facility] [address] [id number] [address] [place] [address], [place] [address] 16 Dec, 2012 [facility] [address] [id number] [address] [place] [address], [place] [address] Dec, [facility] [address] [id number] [address] [place] [address], [place] [address] Nov, [facility] [address] [id number] [address] [place] [address], [place] [address] Oct, [facility] [address] [id number] [address] [place] [address], [place] [id number] Oct, [facility] [address] [id number] [address] [place] [address], [place] [address] Oct, [facility] [address] [id number] [address] [place] [address], [place] [address] Oct, [facility] [address] [id number] [address] [place] [address], [place] [address] Oct, [facility] [address] [id number] [address] [place] [address], [place] [address] Sep, [facility] [address] [id number] [address] [place] [address], [place] [address] Sep, [facility] [address] [id number] [address] [place] [address], [place] [address] Sep, [facility] [address] [id number] [address] [place] [address], [place] [address] Aug, [facility] [address] [id number] [address] [place] [address], [place] [address] Aug, [facility] [address] [id number] [address] [place] [address], [place] [address] Aug, [facility] [address] [id number] [address] [place] [address], [place] [address] Aug, [facility] [address] [id number] [address] [place] [address], [place] [address] Jul, [facility] [address] [id number] [address] [place] [address], [place] [address] Jul, [facility] [address] [id number] [address] [place] [address], [place] [address] Jul, [facility] [address] [id number] [address] [place] [address], [place] [address] Jul, [facility] [address] [id number] [address] [place] [address], [place] [address] Jul, [facility] [address] [id number] [address] [place] [address], [place] [address] Jul, [facility] [address] [id number] [address] [place] [id number] Jun, [facility] [address] [id number] [address] [place] [address], [place] [address] Jun, [facility] [address] [id number] [address] [place] [id number] Jun, [facility] [address] [id number] [address] [place] [id number] Jun, [facility] [address] [id number] [address] [place] [id number] Jun, [facility] [address] [id number] [address] [place] [address] Jun, [facility] [address] [id number] [address] [place] [id number] Jun, [facility] [address] [id number] [address] [place] [id number] Jun, [facility] [address] [id number] [address] [place] [address], [place] [address] Jun, [facility] [address] [id number] [address] [place] [address], [place] [address] Jun, [facility] [address] [id number] [address] [place] [address], [place] [address] May, [facility] [address] [id number] [address] [place] [address], [place] [id number] 08 May, 2012 [facility] [address] [id number] [address] [place] [address], [place] [address] May, [facility] [address] [id number] [address] [place] [address], [place] [address] Apr, [facility] [address] [id number] [address] [place] [address], [place] [address] Apr, [facility] [address] [id number] [address] [place] [address], [place] [address] Apr, [facility] [address] [id number] [address] [place] [address], [place] [id number] Apr, [facility] [address] [id number] [address] [place] [address], [place] [address] Apr, [facility] [address] [id number] [address] [place] [address], [place] [address] Apr, [facility] [address] [id number] [address] [place] [address], [place] [address] Apr, [facility] [address] [id number] [address] [place] [address], [place] [address] Apr, [facility] [address] [id number] [address] [place] [address], [place] [address] Apr, [facility] [address] [id number] [address] [place] [address], [place] [address] Mar, [facility] [address] [id number] [address] [place] [address], [place] [id number] Mar, [facility] [address] [id number] [address] [place] [address], [place] [address] Mar, [facility] [address] [id number] [address] [place] [address], [place] [address] Mar, [facility] [address] [id number] [address] [place] [address], [place] [address] Feb, [facility] [address] [id number] [address] [place] [address], [place] [address] Feb, [facility] [address] [id number] [address] [place] [address], [place] [address] Feb, [facility] [address] [id number] [address] [place] [address], [place] [id number] January, [facility] [address] [id number] [address] [place] [address], [place] [id number] January, [facility] [address] [id number] [address] [place] [address], [place] [address] January, [facility] [address] [id number] [address] [place] [address], [place] [address] January, [facility] [address] [id number] [address] [place] [address], [place] [address] January, [facility] [address] [id number] [address] [place] [address], [place] [address] Dec, [facility] [address] [id number] [address] [place] [address], [place] [address] Dec, [facility] [address] [id number] [address] [place] [address], [place] [id number] 16 Dec, 2011 [facility] [address] [id number] [address] [place] [address], [place] [id number] Oct, [facility] [address] [id number] [address] [place] [address], [place] [address] Oct, [facility] [address] [id number] [address] [place] [address], [place] [address] Oct, [facility] [address] [id number] [address] [place] [address], [place] [address] Sep, [facility] [address] [id number] [address] [place] [address], [place] [address] Sep, [facility] [address] [id number] [address] [place] [address], [place] [address] Aug, [facility] [address] [id number] [address] [place] [address], [place] [id number] Jul, [facility] [address] [id number] [address] [place] [address], [place] [address] Jul, [facility] [address] [id number] [address] [place] [address], [place] [address] Mar, [facility] [address] [id number] [address] [place] [address], [place] [address] Aug, [facility] [address] [id number] [address] [place] [address], [place] [address] Jul, [facility] [address] [id number] [address] [place] [address], [place] [address] Jul, [facility] [address] [id number] [address] [place] [address], [place] [address] Jul, [facility] [address] [id number] [address] [place] [address], [place] [address] Jul, [facility] [address] [id number] [address] [place] [address], [place] [id number] 14 Jun, 2010 [facility] [address] [id number] [address] [place] [address], [place] [address] Jun, [facility] [address] [id number] [address] [place] [address], [place] [address] Apr, [facility] [address] [id number] [address] [place] [address], [place] [address] Aug, [facility] [address] [id number] [address] [place] [id number] 17 Jul, 2009 [facility] [address] [id number] [address] [place] [id number] 17 Jul, 2009 [facility] [address] [id number] [address] [place] [phone] Jul, [facility] [address] [id number] [address] [place] [id number] Jun, [facility] [address] [id number] [address] [place] [id number] 10 May, 2009 [facility] [address] [id number] [address] [place] [id number] 14 Dec, 2008 [facility] [address] [id number] [address] [place] [phone] Nov, [facility] [address] [id number] [address] [place] [phone] Oct, [facility] [address] [id number] [address] [place] [id number] Aug, [facility] [address] [id number] [address] [place] [id number] Aug, [facility] [address] [id number] [address] [place] [id number] Jun, IMMUNIZATIONS No Known Immunizations SOCIAL HISTORY [...] x 3 day s 04/[address] [facility] ED Daisy- Right wrist injury 03/29/2018
--- OUTSIDE RECORDS SUMMARY | 2020-04-09 00:18 | XMS REPORT ---
Author Author Kateryna Turner Doctor Organization [facility] Address Unknown Phone Unavailable Care Team Providers Care Software Engineering Manager Name Role Phone Migration, Doctor Unavailable Unavailable PROBLEMS Type Condition ICD9-CM Code [id number] Code Onset Dates Condition S tatus SNOMED Code Problem Irregular menses N92.6 Active 801 22082 Problem Migraine with aura and without status migrainosu s, not intractable G43.109 Active 2959598 Problem Uncontrolled type 2 diabetes mellitus with hyperglycemia E11.65 Active 528709907 Problem Morbid obesity due to excess calories E66.01 Active 828693643 Problem RLS (restless legs syndrome) G25.81 A ctive 34795068 Problem Morbid obesity E66.01 Active 04959 6002 ALLERGIES No Information ENCOUNTERS Encounter Location Date Diagnosis [facility] [address] [facility] [id number] [address] [place] [id number] 03 Dec, 2019 [facility] [address] [facility] [id number] [address] [place] [phone] 30 Nov, 2019 [facility] [address] [facility] [id number] [address] [place] [phone] Nov, [facility] [address] [facility] [id number] [address] [place] [phone] Nov, [facility] [address] [facility] [id number] [address] [place] [address] Nov, RLS (restless legs syndrome) G25.81 [facility] [address] [facility] [id number] [address] [place] [id number] 15 Oct, 2019 [facility] [address] [facility] [id number] [address] [place] [phone] 09 Oct, 2019 Influenza J11.1 [facility] [address] [facility] [id number] [address] [place] [address] Sep, [facility] [address] [id number] [address] [place] [address] 14 Sep, 2019 [facility] [address] [id number] [address] [place] [id number] 14 Sep, 2019 [facility] [address] [id number] [address] [place] [address] 13 Sep, 2019 [facility] [address] [id number] [address] [place] [address] 10 Sep, 2019 Pneumonia of left lower lobe due to infectious organism J18.9 and Migraine with aura and without status migrainosus, not intractable G43.109 [facility] [address] [id number] [address] [place] [id number] 10 Sep, 2019 [facility] [address] [id number] [address] [place] [phone] 10 Sep, 2019 [facility] [address] [id number] [address] [place] [phone] 08 Sep, 2019 [facility] [address] [id number] [address] [place] [address] 08 Sep, 2019 [facility] [address] [id number] [address] [place] [address] 08 Sep, 2019 Pneumonia of left lower lobe due to infectious organism J18.9 and Migraine with aura and without status migrainosus, not intractable G43.109 [facility] [address] [id number] [address] [place] [address] Aug, Irregular menses N92.6 ; Wel l woman exam Z01.419 ; Pelvic cramping R10.2 and Left breast lump N63.20 [facility] [address] [id number] [address] [place] [address] Aug, [facility] [address] [id number] [address] [place] [address] Aug, Well woman exam Z01.419 ; Le ft breast lump N63.20 ; Irregular menses N92.6 ; Encounter for immunization Z23 ; Pelvic cramping R10.2 and Screening for cervical cancer Z12.4 [facility] [address] [place] [id number] [address] [place] [address] Aug, [facility] [address] [facility] [id number] [address] [place] [address] Aug, [facility] [address] [address] Aug, [facility] [address] [facility] [id number] [address] [place] [address] Jul, [facility] [address] [address] Jun, [facility] [address] [place] [id number] [address] [place] [address] Jun, [facility] [address] [address] Jun, [facility] [address] [place] [id number] [address] [place] [address] Jun, BMI 50.0-59.9, adult Z68.43 [facility] [address] [place] [id number] [address] [place] [address] Jun, [facility] [address] [place] [id number] [address] [place] [address] May, Acute non-recurrent sinusiti s, unspecified location J01.90 ; Diarrhea, unspecified R19.7 ; Vomiting, unspecified R11.10 and Morbid obesity E66.01 [facility] [address] [place] [id number] [address] [place] [address] Apr, [facility] [address] [place] [id number] [address] [place] [address] Apr, Anemia due to other cause, n ot classified D64.89 and D-dimer, elevated R79.89 [facility] [address] [address] Apr, [place] [address] [address] Apr, [place] [address] [address] Mar, Anemia due to other cause, n ot classified D64.89 and D-dimer, elevated R79.89 [place] [address] [address] Mar, Leg edema, right R60.0 ; Hig h risk medication use Z79.899 and Morbid obesity E66.01 [place] [address] [address] Mar, BMI 50.0-59.9, adult Z68.43 [place] [address] [address] Mar, [place] [address] [address] January, Uncontrolled type 2 diabetes mellitus with hyperglycemia E11.65 ; RLS (restless legs syndrome) G25.81 and Morbid obesity E66.01 [place] [address] [address] Oct, Lipoma of right lower extrem ity D17.23 [place] [address] [address] Oct, Lipoma of right lower extrem ity D17.23 [place] [address] [address] Sep, [place] [address] [address] Sep, [place] [address] [address] Sep, [place] [address] [id number] [address] [place] [address] Sep, [facility] [address] [facility] [id number] [address] [place] [address] Sep, [facility] [address] [facility] [id number] [address] [place] [address] Aug, Uncontrolled type 2 diabetes mellitus with hyperglycemia E11.65 ; Morbid obesity due to excess calories E66.01 ; Lipoma of torso D17.1 and BMI 50.0-59.9, adult Z68.43 [facility] [address] [id number] [address] [place] [phone] Jun, Encounter for immunization Z 23 [facility] [address] [id number] [address] [place] [address] Jul, [facility] [address] [facility] [id number] [address] [place] [address] Jun, Encounter for immunization Z 23 [facility] [address] [id number] [address] [place] [address] May, [facility] [address] [facility] [id number] [address] [place] [address] Jun, Encounter for immunization Z 23 [facility] [address] [facility] [id number] [address] [place] [address] May, [facility] [address] [id number] [address] [place] [address] May, [facility] [address] [id number] [address] [place] [id number] Apr, [facility] [address] [facility] [id number] [address] [place] [phone] Feb, [facility] [address] [id number] [address] [place] [address] Feb, [facility] [address] [facility] [id number] [address] [place] [address] Feb, [facility] [address] [id number] [address] [place] [address], [place] [address] January, [facility] [address] [id number] [address] [place] [address], [place] [address] January, [facility] [address] [id number] [address] [place] [address], [place] [address] Dec, [facility] [address] [id number] [address] [place] [address], [place] [address] Dec, [facility] [address] [id number] [address] [place] [address], [place] [address] Nov, [facility] [address] [id number] [address] [place] [address], [place] [address] Nov, [facility] [address] [id number] [address] [place] [address], [place] [address] Nov, [facility] [address] [id number] [address] [place] [address], [place] [address] Nov, [facility] [address] [id number] [address] [place] [address], [place] [address] Nov, [facility] [address] [id number] [address] [place] [address] Nov, [facility] [address] [id number] [address] [place] [address], [place] [address] Nov, [facility] [address] [id number] [address] [place] [address] Oct, [facility] [address] [id number] [address] [place] [address], [place] [address] Oct, [facility] [address] [id number] [address] [place] [address], [place] [address] Oct, [facility] [address] [id number] [address] [place] [address], [place] [address] Oct, [facility] [address] [id number] [address] [place] [address], [place] [address] Oct, [facility] [address] [id number] [address] [place] [address], [place] [address] Sep, [facility] [address] [id number] [address] [place] [address], [place] [address] Sep, [facility] [address] [id number] [address] [place] [address], [place] [address] Sep, [facility] [address] [id number] [address] [place] [address], [place] [address] Sep, [facility] [address] [id number] [address] [place] [address], [place] [address] Sep, [facility] [address] [id number] [address] [place] [address], [place] [address] Sep, [facility] [address] [id number] [address] [place] [address], [place] [address] Sep, [facility] [address] [id number] [address] [place] [address], [place] [address] Sep, [facility] [address] [id number] [address] [place] [address], [place] [address] Sep, [facility] [address] [id number] [address] [place] [address], [place] [address] Sep, [facility] [address] [id number] [address] [place] [address], [place] [address] Aug, [facility] [address] [id number] [address] [place] [address], [place] [address] Aug, [facility] [address] [id number] [address] [place] [address], [place] [address] Aug, [facility] [address] [id number] [address] [place] [address], [place] [address] Aug, [facility] [address] [id number] [address] [place] [address], [place] [address] Aug, [facility] [address] [id number] [address] [place] [address], [place] [address] Aug, [facility] [address] [id number] [address] [place] [address], [place] [address] Aug, [facility] [address] [id number] [address] [place] [address], [place] [address] Aug, [facility] [address] [id number] [address] [place] [address], [place] [address] Aug, [facility] [address] [id number] [address] [place] [address], [place] [address] Aug, [facility] [address] [id number] [address] [place] [address], [place] [address] Aug, [facility] [address] [id number] [address] [place] [address], [place] [address] Aug, [facility] [address] [id number] [address] [place] [address], [place] [address] Aug, [facility] [address] [id number] [address] [place] [address], [place] [address] Aug, [facility] [address] [id number] [address] [place] [address], [place] [address] Aug, [facility] [address] [id number] [address] [place] [address], [place] [address] Aug, [facility] [address] [id number] [address] [place] [address], [place] [address] Aug, [facility] [address] [id number] [address] [place] [address], [place] [address] Aug, [facility] [address] [id number] [address] [place] [address], [place] [address] Aug, [facility] [address] [id number] [address] [place] [address], [place] [address] Aug, [facility] [address] [id number] [address] [place] [address], [place] [address] 08 Aug, 2014 [facility] [address] [id number] [address] [place] [address], [place] [address] 08 Aug, 2014 [facility] [address] [id number] [address] [place] [address], [place] [address] 05 Aug, 2014 [facility] [address] [id number] [address] [place] [address], [place] [address] Aug, [facility] [address] [id number] [address] [place] [address] Jul, [facility] [address] [id number] [address] [place] [address], [place] [address] Jul, [facility] [address] [id number] [address] [place] [address], [place] [address] Jun, [facility] [address] [id number] [address] [place] [address], [place] [address] 27 Jun, 2014 [facility] [address] [id number] [address] [place] [address], [place] [address] 17 Jun, 2014 [facility] [address] [id number] [address] [place] [address], [place] [address] 17 Jun, 2014 [facility] [address] [id number] [address] [place] [address], [place] [address] 15 Jun, 2014 [facility] [address] [id number] [address] [place] [address] 15 Jun, 2014 [facility] [address] [id number] [address] [place] [address] 14 Jun, 2014 [facility] [address] [id number] [address] [place] [address], [place] [address] 14 Jun, 2014 [facility] [address] [id number] [address] [place] [address], [place] [address] 13 Jun, 2014 [facility] [address] [id number] [address] [place] [address], [place] [address] 13 Jun, 2014 [facility] [address] [id number] [address] [place] [address], [place] [address] Jun, [facility] [address] [id number] [address] [place] [address], [place] [address] Jun, [facility] [address] [id number] [address] [place] [address], [place] [address] Jun, [facility] [address] [id number] [address] [place] [address], [place] [address] Jun, [facility] [address] [id number] [address] [place] [address], [place] [address] May, [facility] [address] [id number] [address] [place] [address], [place] [address] May, [facility] [address] [id number] [address] [place] [address], [place] [address] May, [facility] [address] [id number] [address] [place] [address], [place] [address] May, [facility] [address] [id number] [address] [place] [address], [place] [address] May, [facility] [address] [id number] [address] [place] [address], [place] [address] May, [facility] [address] [id number] [address] [place] [address], [place] [address] May, [facility] [address] [id number] [address] [place] [address], [place] [address] May, [facility] [address] [id number] [address] [place] [address], [place] [address] Apr, [facility] [address] [id number] [address] [place] [address], [place] [address] Apr, [facility] [address] [id number] [address] [place] [address], [place] [address] Apr, [facility] [address] [id number] [address] [place] [address], [place] [address] Apr, [facility] [address] [id number] [facility] [place] [address] Apr, [facility] [address] [id number] [address] [place] [address], [place] [address] Apr, [facility] [address] [id number] [address] [place] [address], [place] [address] Apr, [facility] [address] [id number] [address] [place] [address], [place] [address] Apr, [facility] [address] [id number] [address] [place] [address], [place] [address] Apr, [facility] [address] [id number] [address] [place] [address], [place] [address] Mar, [facility] [address] [id number] [address] [place] [address], [place] [address] Mar, [facility] [address] [id number] [address] [place] [address], [place] [address] Mar, [facility] [address] [id number] [address] [place] [address], [place] [address] Feb, [facility] [address] [id number] [address] [place] [address], [place] [address] Feb, [facility] [address] [id number] [address] [place] [address], [place] [address] Feb, [facility] [address] [id number] [address] [place] [address], [place] [address] Feb, [facility] [address] [id number] [address] [place] [address], [place] [address] Feb, [facility] [address] [id number] [address] [place] [address], [place] [address] Feb, [facility] [address] [id number] [address] [place] [address], [place] [address] 16 Feb, 2014 [facility] [address] [id number] [address] [place] [address], [place] [address] Feb, [facility] [address] [id number] [facility] [place] [address] Feb, [facility] [address] [id number] [facility] [place] [address] Feb, [facility] [address] [id number] [address] [place] [address], [place] [address] Feb, [facility] [address] [id number] [address] [place] [address], [place] [address] Feb, [facility] [address] [id number] [address] [place] [address], [place] [address] Feb, [facility] [address] [id number] [address] [place] [address], [place] [address] Feb, [facility] [address] [id number] [address] [place] [address], [place] [address] Feb, [facility] [address] [id number] [address] [place] [address], [place] [address] Feb, [facility] [address] [id number] [address] [place] [address], [place] [address] January, [facility] [address] [id number] [address] [place] [address], [place] [address] January, [facility] [address] [id number] [address] [place] [address], [place] [address] January, [facility] [address] [id number] [address] [place] [address], [place] [address] January, [facility] [address] [id number] [address] [place] [address], [place] [address] January, [facility] [address] [id number] [address] [place] [address], [place] [address] January, [facility] [address] [id number] [address] [place] [address], [place] [address] January, [facility] [address] [id number] [address] [place] [address] January, [facility] [address] [id number] [address] [place] [address] January, [facility] [address] [id number] [address] [place] [address] January, [facility] [address] [id number] [address] [place] [address] January, [facility] [address] [id number] [address] [place] [address] January, [facility] [address] [id number] [address] [place] [address], [place] [address] January, [facility] [address] [id number] [address] [place] [address], [place] [address] January, [facility] [address] [id number] [address] [place] [address], [place] [address] January, [facility] [address] [id number] [address] [place] [address], [place] [address] January, [facility] [address] [id number] [address] [place] [address], [place] [address] January, [facility] [address] [id number] [address] [place] [address], [place] [address] January, [facility] [address] [id number] [address] [place] [address], [place] [address] January, [facility] [address] [id number] [address] [place] [address], [place] [address] January, [facility] [address] [id number] [address] [place] [address], [place] [address] January, [facility] [address] [id number] [address] [place] [address], [place] [address] January, [facility] [address] [id number] [address] [place] [address], [place] [address] January, [facility] [address] [id number] [address] [place] [address] January, [facility] [address] [id number] [address] [place] [address], [place] [address] January, [facility] [address] [id number] [address] [place] [address], [place] [address] January, [facility] [address] [id number] [address] [place] [address], [place] [address] Dec, [facility] [address] [id number] [address] [place] [address], [place] [address] Dec, [facility] [address] [id number] [address] [place] [address], [place] [address] Dec, [facility] [address] [id number] [address] [place] [address], [place] [address] Dec, [facility] [address] [id number] [address] [place] [address], [place] [address] Dec, [facility] [address] [id number] [address] [place] [address], [place] [address] Dec, [facility] [address] [id number] [address] [place] [address], [place] [address] Dec, [facility] [address] [id number] [address] [place] [address], [place] [address] Dec, [facility] [address] [id number] [address] [place] [address], [place] [address] Dec, [facility] [address] [id number] [address] [place] [address], [place] [address] Dec, [facility] [address] [id number] [address] [place] [address], [place] [address] Dec, [facility] [address] [id number] [address] [place] [address], [place] [address] Dec, [facility] [address] [id number] [facility] [place] [address] 14 Dec, 2013 [facility] [address] [id number] [address] [place] [address], [place] [address] 14 Dec, 2013 [facility] [address] [id number] [address] [place] [address], [place] [address] Dec, [facility] [address] [id number] [address] [place] [address], [place] [address] Dec, [facility] [address] [id number] [address] [place] [address], [place] [address] Dec, [facility] [address] [id number] [address] [place] [address], [place] [address] Dec, [facility] [address] [id number] [address] [place] [address], [place] [address] Dec, [facility] [address] [id number] [address] [place] [address], [place] [address] Dec, [facility] [address] [id number] [address] [place] [address], [place] [address] Dec, [facility] [address] [id number] [address] [place] [address], [place] [address] Dec, [facility] [address] [id number] [address] [place] [address], [place] [address] Nov, [facility] [address] [id number] [address] [place] [address], [place] [address] Nov, [facility] [address] [id number] [address] [place] [address], [place] [address] Nov, [facility] [address] [id number] [address] [place] [address], [place] [address] Nov, [facility] [address] [id number] [address] [place] [address], [place] [address] Nov, [facility] [address] [id number] [address] [place] [address], [place] [address] Nov, [facility] [address] [id number] [facility] [place] [address] Nov, [facility] [address] [id number] [address] [place] [address], [place] [address] Nov, [facility] [address] [id number] [address] [place] [address], [place] [address] 18 Nov, 2013 [facility] [address] [id number] [address] [place] [address], [place] [address] 18 Nov, 2013 [facility] [address] [id number] [address] [place] [address], [place] [address] 18 Nov, 2013 [facility] [address] [id number] [address] [place] [address], [place] [address] 18 Nov, 2013 [facility] [address] [id number] [address] [place] [address], [place] [address] Nov, [facility] [address] [id number] [address] [place] [address], [place] [address] 14 Nov, 2013 [facility] [address] [id number] [address] [place] [address], [place] [address] Nov, [facility] [address] [id number] [address] [place] [address], [place] [address] Nov, [facility] [address] [id number] [address] [place] [address], [place] [address] Oct, [facility] [address] [id number] [address] [place] [address], [place] [address] Oct, [facility] [address] [id number] [address] [place] [address], [place] [address] Oct, [facility] [address] [id number] [address] [place] [address], [place] [address] Oct, [facility] [address] [id number] [address] [place] [address], [place] [address] Oct, [facility] [address] [id number] [address] [place] [address], [place] [address] Oct, [facility] [address] [id number] [address] [place] [address], [place] [address] Oct, [facility] [address] [id number] [address] [place] [address], [place] [address] Oct, [facility] [address] [id number] [address] [place] [address], [place] [address] Oct, [facility] [address] [id number] [address] [place] [address], [place] [address] 17 Oct, 2013 [facility] [address] [id number] [address] [place] [address], [place] [address] Oct, [facility] [address] [id number] [address] [place] [address], [place] [address] Oct, [facility] [address] [id number] [address] [place] [address], [place] [address] Oct, [facility] [address] [id number] [address] [place] [address], [place] [address] 04 Oct, 2013 [facility] [address] [id number] [address] [place] [address], [place] [address] 03 Oct, 2013 [facility] [address] [id number] [address] [place] [address], [place] [address] Sep, [facility] [address] [id number] [address] [place] [address], [place] [address] Sep, [facility] [address] [id number] [address] [place] [address], [place] [address] Sep, [facility] [address] [id number] [address] [place] [address], [place] [address] Sep, [facility] [address] [id number] [address] [place] [address], [place] [address] Sep, [facility] [address] [id number] [address] [place] [address], [place] [address] 14 Sep, 2013 [facility] [address] [id number] [address] [place] [address], [place] [address] Sep, [facility] [address] [id number] [address] [place] [address], [place] [address] Sep, [facility] [address] [id number] [address] [place] [address], [place] [address] Sep, [facility] [address] [id number] [address] [place] [address], [place] [address] Sep, [facility] [address] [id number] [address] [place] [address], [place] [address] Sep, [facility] [address] [id number] [address] [place] [address], [place] [address] Sep, [facility] [address] [id number] [address] [place] [address], [place] [address] Sep, [facility] [address] [id number] [address] [place] [address], [place] [address] 30 Aug, 2013 [facility] [address] [id number] [address] [place] [address], [place] [address] 30 Aug, 2013 [facility] [address] [id number] [address] [place] [address], [place] [address] 24 Aug, 2013 [facility] [address] [id number] [address] [place] [address], [place] [address] 24 Aug, 2013 [facility] [address] [id number] [address] [place] [address], [place] [address] 17 Aug, 2013 [facility] [address] [id number] [address] [place] [address], [place] [address] 17 Aug, 2013 [facility] [address] [id number] [address] [place] [address], [place] [address] 16 Aug, 2013 [facility] [address] [id number] [address] [place] [address], [place] [address] 16 Aug, 2013 [facility] [address] [id number] [address] [place] [address], [place] [address] 12 Aug, 2013 [facility] [address] [id number] [address] [place] [address], [place] [address] 12 Aug, 2013 [facility] [address] [id number] [address] [place] [address], [place] [address] 10 Aug, 2013 [facility] [address] [id number] [address] [place] [address], [place] [address] 10 Aug, 2013 [facility] [address] [id number] [address] [place] [address], [place] [address] 02 Aug, 2013 [facility] [address] [id number] [address] [place] [address], [place] [address] 02 Aug, 2013 [facility] [address] [id number] [address] [place] [address], [place] [address] 19 Jul, 2013 [facility] [address] [id number] [address] [place] [address], [place] [address] 19 Jul, 2013 [facility] [address] [id number] [address] [place] [address], [place] [address] 18 Jul, 2013 [facility] [address] [id number] [address] [place] [address], [place] [address] 18 Jul, 2013 [facility] [address] [id number] [address] [place] [address], [place] [address] 14 Jul, 2013 [facility] [address] [id number] [address] [place] [address], [place] [address] 14 Jul, 2013 [facility] [address] [id number] [address] [place] [address], [place] [address] 14 Jul, 2013 [facility] [address] [id number] [address] [place] [address], [place] [address] 14 Jul, 2013 [facility] [address] [id number] [address] [place] [address], [place] [address] 07 Jul, 2013 [facility] [address] [id number] [address] [place] [address], [place] [address] 07 Jul, 2013 [facility] [address] [id number] [address] [place] [address], [place] [address] 06 Jul, 2013 [facility] [address] [id number] [address] [place] [address], [place] [address] 06 Jul, 2013 [facility] [address] [id number] [address] [place] [address], [place] [address] 05 Jul, 2013 [facility] [address] [id number] [address] [place] [address], [place] [address] 05 Jul, 2013 [facility] [address] [id number] [address] [place] [address], [place] [address] 23 Jun, 2013 [facility] [address] [id number] [address] [place] [address], [place] [address] 23 Jun, 2013 [facility] [address] [id number] [address] [place] [address], [place] [address] 15 Jun, 2013 [facility] [address] [id number] [address] [place] [address], [place] [address] 15 Jun, 2013 [facility] [address] [id number] [address] [place] [address], [place] [address] 14 Jun, 2013 [facility] [address] [id number] [address] [place] [address], [place] [address] 24 May, 2013 [facility] [address] [id number] [address] [place] [address], [place] [address] 20 May, 2012 [facility] [address] [id number] [address] [place] [address], [place] [address] 20 Sep, 2012 [facility] [address] [id number] [address] [place] [address], [place] [address] 20 Sep, 2012 [facility] [address] [id number] [address] [place] [address], [place] [address] 19 Sep, 2012 [facility] [address] [id number] [address] [place] [address], [place] [address] 13 May, 2012 [facility] [address] [id number] [address] [place] [address], [place] [address] 12 May, 2012 [facility] [address] [id number] [address] [place] [address], [place] [address] 12 May, 2012 [facility] [address] [id number] [address] [place] [address], [place] [address] 11 May, 2012 [facility] [address] [id number] [address] [place] [address], [place] [address] 11 May, 2012 [facility] [address] [id number] [address] [place] [address], [place] [address] 11 May, 2012 [facility] [address] [id number] [address] [place] [address], [place] [address] 09 May, 2012 [facility] [address] [id number] [address] [place] [address], [place] [address] 05 May, 2012 [facility] [address] [id number] [address] [place] [address], [place] [address] 04 May, 2012 [facility] [address] [id number] [address] [place] [address], [place] [address] 03 May, 2012 [facility] [address] [id number] [address] [place] [address], [place] [address] Apr, [facility] [address] [id number] [address] [place] [address], [place] [address] Apr, [facility] [address] [id number] [address] [place] [address], [place] [address] Apr, [facility] [address] [id number] [address] [place] [address], [place] [address] Apr, [facility] [address] [id number] [address] [place] [address], [place] [address] Apr, [facility] [address] [id number] [address] [place] [address], [place] [address] Apr, [facility] [address] [id number] [address] [place] [address], [place] [address] Apr, [facility] [address] [id number] [address] [place] [address], [place] [address] Apr, [facility] [address] [id number] [address] [place] [address], [place] [address] Apr, [facility] [address] [id number] [address] [place] [address], [place] [address] Mar, [facility] [address] [id number] [address] [place] [address], [place] [address] Mar, [facility] [address] [id number] [address] [place] [address], [place] [address] Mar, [facility] [address] [id number] [address] [place] [address], [place] [address] Mar, [facility] [address] [id number] [address] [place] [address], [place] [address] Mar, [facility] [address] [id number] [address] [place] [address], [place] [address] Mar, [facility] [address] [id number] [address] [place] [address], [place] [address] Mar, [facility] [address] [id number] [address] [place] [address], [place] [address] Mar, [facility] [address] [id number] [address] [place] [address], [place] [address] Mar, [facility] [address] [id number] [address] [place] [address], [place] [address] Mar, [facility] [address] [id number] [address] [place] [address], [place] [address] Mar, [facility] [address] [id number] [address] [place] [address], [place] [address] Feb, [facility] [address] [id number] [address] [place] [address], [place] [address] Feb, [facility] [address] [id number] [address] [place] [address], [place] [address] Feb, [facility] [address] [id number] [address] [place] [address], [place] [address] Feb, [facility] [address] [id number] [address] [place] [address], [place] [address] Feb, [facility] [address] [id number] [address] [place] [address], [place] [address] Feb, [facility] [address] [id number] [address] [place] [address], [place] [address] Feb, [facility] [address] [id number] [address] [place] [address], [place] [address] Feb, [facility] [address] [id number] [address] [place] [address], [place] [address] Feb, [facility] [address] [id number] [address] [place] [address], [place] [address] January, [facility] [address] [id number] [address] [place] [address], [place] [address] January, [facility] [address] [id number] [address] [place] [address], [place] [address] January, [facility] [address] [id number] [address] [place] [address], [place] [address] January, [facility] [address] [id number] [address] [place] [address], [place] [address] January, [facility] [address] [id number] [address] [place] [address], [place] [address] January, [facility] [address] [id number] [address] [place] [address], [place] [address] January, [facility] [address] [id number] [address] [place] [address], [place] [address] January, [facility] [address] [id number] [address] [place] [address], [place] [address] January, [facility] [address] [id number] [address] [place] [address], [place] [address] January, [facility] [address] [id number] [address] [place] [address], [place] [address] January, [facility] [address] [id number] [address] [place] [address], [place] [address] January, [facility] [address] [id number] [address] [place] [address], [place] [address] January, [facility] [address] [id number] [address] [place] [address], [place] [address] January, [facility] [address] [id number] [address] [place] [address], [place] [address] January, [facility] [address] [id number] [address] [place] [address], [place] [address] January, [facility] [address] [id number] [address] [place] [address], [place] [address] January, [facility] [address] [id number] [address] [place] [address], [place] [address] January, [facility] [address] [id number] [address] [place] [address], [place] [address] January, [facility] [address] [id number] [address] [place] [address], [place] [address] January, [facility] [address] [id number] [address] [place] [address], [place] [address] January, [facility] [address] [id number] [address] [place] [address], [place] [address] January, [facility] [address] [id number] [address] [place] [address], [place] [address] January, [facility] [address] [id number] [address] [place] [address], [place] [address] Dec, [facility] [address] [id number] [address] [place] [address], [place] [address] Dec, [facility] [address] [id number] [address] [place] [address], [place] [address] 17 Dec, 2012 [facility] [address] [id number] [address] [place] [address], [place] [address] 16 Dec, 2012 [facility] [address] [id number] [address] [place] [address], [place] [address] Dec, [facility] [address] [id number] [address] [place] [address], [place] [address] Nov, [facility] [address] [id number] [address] [place] [address], [place] [address] Oct, [facility] [address] [id number] [address] [place] [address], [place] [address] Oct, [facility] [address] [id number] [address] [place] [address], [place] [address] Oct, [facility] [address] [id number] [address] [place] [address], [place] [address] Oct, [facility] [address] [id number] [address] [place] [address], [place] [address] Oct, [facility] [address] [id number] [address] [place] [address], [place] [address] Sep, [facility] [address] [id number] [address] [place] [address], [place] [address] Sep, [facility] [address] [id number] [address] [place] [address], [place] [address] Sep, [facility] [address] [id number] [address] [place] [address], [place] [address] Aug, [facility] [address] [id number] [address] [place] [address], [place] [address] Aug, [facility] [address] [id number] [address] [place] [address], [place] [address] Aug, [facility] [address] [id number] [address] [place] [id number] Aug, [facility] [address] [id number] [address] [place] [address], [place] [address] Jul, [facility] [address] [id number] [address] [place] [address] Jul, [facility] [address] [id number] [address] [place] [address], [place] [address] Jul, [facility] [address] [id number] [address] [place] [id number] Jul, [facility] [address] [id number] [address] [place] [address], [place] [address] Jul, [facility] [address] [id number] [address] [place] [id number] Jul, [facility] [address] [id number] [address] [place] [address], [place] [address] Jun, [facility] [address] [id number] [address] [place] [address] Jun, [facility] [address] [id number] [address] [place] [address] Jun, [facility] [address] [id number] [address] [place] [id number] Jun, [facility] [address] [id number] [address] [place] [address] Jun, [facility] [address] [id number] [address] [place] [address] Jun, [facility] [address] [id number] [address] [place] [address], [place] [address] Jun, [facility] [address] [id number] [address] [place] [id number] Jun, [facility] [address] [id number] [place] [id number] Jun, [facility] [address] [id number] [address] [place] [address], [place] [address] Jun, [facility] [address] [id number] [address] [place] [address], [place] [address] 17 May, 2012 [facility] [address] [id number] [address] [place] [address], [place] [address] 08 May, 2012 [facility] [address] [id number] [address] [place] [address], [place] [address] May, [facility] [address] [id number] [address] [place] [address], [place] [address] Apr, [facility] [address] [id number] [address] [place] [address], [place] [address] Apr, [facility] [address] [id number] [address] [place] [address], [place] [address] Apr, [facility] [address] [id number] [address] [place] [address], [place] [address] Apr, [facility] [address] [id number] [address] [place] [address], [place] [address] Apr, [facility] [address] [id number] [address] [place] [address], [place] [address] Apr, [facility] [address] [id number] [address] [place] [address], [place] [address] Apr, [facility] [address] [id number] [address] [place] [address], [place] [address] Apr, [facility] [address] [id number] [address] [place] [address], [place] [address] Apr, [facility] [address] [id number] [address] [place] [address], [place] [address] Mar, [facility] [address] [id number] [address] [place] [address], [place] [address] Mar, [facility] [address] [id number] [address] [place] [address], [place] [address] Mar, [facility] [address] [id number] [address] [place] [address], [place] [address] Mar, [facility] [address] [id number] [address] [place] [address], [place] [address] Feb, [facility] [address] [id number] [address] [place] [address], [place] [address] Feb, [facility] [address] [id number] [address] [place] [address], [place] [address] Feb, [facility] [address] [id number] [address] [place] [address], [place] [address] January, [facility] [address] [id number] [address] [place] [address], [place] [address] January, [facility] [address] [id number] [address] [place] [address], [place] [address] January, [facility] [address] [id number] [address] [place] [address], [place] [address] January, [facility] [address] [id number] [address] [place] [address], [place] [address] January, [facility] [address] [id number] [address] [place] [address], [place] [address] Dec, [facility] [address] [id number] [address] [place] [address], [place] [address] Dec, [facility] [address] [id number] [address] [place] [address], [place] [address] 16 Dec, 2011 [facility] [address] [id number] [address] [place] [address], [place] [address] Oct, [facility] [address] [id number] [address] [place] [address], [place] [address] Oct, [facility] [address] [id number] [address] [place] [address], [place] [address] Oct, [facility] [address] [id number] [address] [place] [address], [place] [address] 24 Sep, 2011 [facility] [address] [id number] [address] [place] [address], [place] [address] Sep, [facility] [address] [id number] [address] [place] [address], [place] [address] 07 Aug, 2011 [facility] [address] [id number] [address] [place] [address], [place] [address] Jul, [facility] [address] [id number] [address] [place] [address], [place] [address] Jul, [facility] [address] [id number] [address] [place] [address], [place] [address] Mar, [facility] [address] [id number] [address] [place] [address], [place] [address] Aug, [facility] [address] [id number] [address] [place] [address], [place] [address] 10 Jul, 2010 [facility] [address] [id number] [address] [place] [address], [place] [address] Jul, [facility] [address] [id number] [address] [place] [address], [place] [address] Jul, [facility] [address] [id number] [address] [place] [address], [place] [address] Jul, [facility] [address] [id number] [address] [place] [address], [place] [address] 14 Jun, 2010 [facility] [address] [id number] [address] [place] [address], [place] [address] Jun, [facility] [address] [id number] [address] [place] [address], [place] [address] Apr, [facility] [address] [id number] [address] [place] [address], [place] [address] Aug, [facility] [address] [id number] [address] [place] [address], [place] [address] Jul, [facility] [address] [id number] [address] [place] [id number] 17 Jul, 2009 [facility] [address] [id number] [address] [place] [address] Jul, [facility] [address] [id number] [address] [place] [id number] 23 Jun, 2009 [facility] [address] [id number] [address] [place] [phone] 10 May, 2009 [facility] [address] [id number] [address] [place] [id number] 14 Dec, 2008 [facility] [address] [id number] [address] [place] [id number] Nov, [facility] [address] [facility] [id number] [address] [place] [phone] Oct, [facility] [address] [facility] [id number] [address] [place] [id number] Aug, [facility] [address] [id number] [address] [place] [id number] Aug, [facility] [address] [facility] [id number] [address] [place] [phone] Jun, IMMUNIZATIONS No Known Immunizations SOCIAL HISTORY [...] s 04/2012 Hospitalization History [facility] [place]- Right wrist injury 03/29/2018
--- OUTSIDE RECORDS SUMMARY | 2020-04-09 00:18 | XMS REPORT ---
Author Author Kateryna Turner Doctor Organization [facility] Address Unknown Phone Unavailable Care Team Providers Care Rn Acute Dialysis Name Role Phone Migration, Doctor Unavailable Unavailable PROBLEMS Type Condition ICD9-CM Code DXU49-UT Code Onset Dates Condition S tatus SNOMED Code Problem Irregular menses N92.6 Active 801 09590 Problem Migraine with aura and without status migrainosu s, not intractable G43.109 Active 3161502 Problem Uncontrolled type 2 diabetes mellitus with hyperglycemia E11.65 Active 895943713 Problem Morbid obesity due to excess calories E66.01 Active 166494786 Problem RLS (restless legs syndrome) G25.81 A ctive 00771335 Problem Morbid obesity E66.01 Active 44343 6002 ALLERGIES No Information ENCOUNTERS Encounter Location Date Diagnosis [facility] [address] [facility] [id number] [address] [place] [phone] 03 Dec, 2019 [facility] [address] [facility] [id number] [address] [place] [phone] 30 Nov, 2019 [facility] [address] [facility] [id number] [address] [place] [phone] Nov, [facility] [address] [facility] [id number] [address] [place] [phone] Nov, [facility] [address] [facility] [id number] [address] [place] [address] Nov, RLS (restless legs syndrome) G25.81 [facility] [address] [facility] [id number] [address] [place] [phone] 15 Oct, 2019 [facility] [address] [facility] [id number] [address] [place] [phone] 09 Oct, 2019 Influenza J11.1 [facility] [address] [facility] [id number] [address] [place] [phone] Sep, [facility] [address] [id number] [address] [place] [phone] 14 Sep, 2019 [facility] [address] [id number] [address] [place] [phone] 14 Sep, 2019 [facility] [address] [id number] [address] [place] [phone] 13 Sep, 2019 [facility] [address] [id number] [address] [place] [phone] 10 Sep, 2019 Pneumonia of left lower lobe due to infectious organism J18.9 and Migraine with aura and without status migrainosus, not intractable G43.109 [facility] [address] [id number] [address] [place] [id number] 10 Sep, 2019 [facility] [address] [id number] [address] [place] [phone] 10 Sep, 2019 [facility] [address] [id number] [address] [place] [phone] 08 Sep, 2019 [facility] [address] [id number] [address] [place] [phone] 08 Sep, 2019 [facility] [address] [id number] [address] [place] [phone] 08 Sep, 2019 Pneumonia of left lower lobe due to infectious organism J18.9 and Migraine with aura and without status migrainosus, not intractable G43.109 [facility] [address] [id number] [address] [place] [address] Aug, Irregular menses N92.6 ; Wel l woman exam Z01.419 ; Pelvic cramping R10.2 and Left breast lump N63.20 [facility] [address] [id number] [address] [place] [phone] Aug, [facility] [address] [id number] [address] [place] [address] Aug, Well woman exam Z01.419 ; Le ft breast lump N63.20 ; Irregular menses N92.6 ; Encounter for immunization Z23 ; Pelvic cramping R10.2 and Screening for cervical cancer Z12.4 [facility] [address] [place] [id number] [address] [place] [address] Aug, [facility] [address] [facility] [id number] [address] [place] [phone] Aug, [facility] [address] [address] Aug, [facility] [address] [facility] [id number] [address] [place] [phone] Jul, [facility] [address] [address] Jun, [facility] [address] [place] [id number] [address] [place] [phone] Jun, [facility] [address] [address] Jun, [facility] [address] [place] [id number] [address] [place] [address] Jun, BMI 50.0-59.9, adult Z68.43 [facility] [address] [place] [id number] [address] [place] [phone] Jun, [facility] [address] [place] [id number] [address] [place] [phone] May, Acute non-recurrent sinusiti s, unspecified location J01.90 ; Diarrhea, unspecified R19.7 ; Vomiting, unspecified R11.10 and Morbid obesity E66.01 [facility] [address] [place] [id number] [address] [place] [phone] Apr, [facility] [address] [place] [id number] [address] [place] [address] Apr, Anemia due to other cause, n ot classified D64.89 and D-dimer, elevated R79.89 [facility] [address] [address] Apr, [place] [address] [address] Apr, [place] [address] [address] Mar, Anemia due to other cause, n ot classified D64.89 and D-dimer, elevated R79.89 [place] [address] [address] Mar, Leg edema, right R60.0 ; Hig h risk medication use Z79.899 and Morbid obesity E66.01 [place] [address] [address] Mar, BMI 50.0-59.9, adult Z68.43 [place] [address] [address] Mar, [place] [address] [address] January, Uncontrolled type 2 diabetes mellitus with hyperglycemia E11.65 ; RLS (restless legs syndrome) G25.81 and Morbid obesity E66.01 [place] [address] [address] Oct, Lipoma of right lower extrem ity D17.23 [place] [address] [address] Oct, Lipoma of right lower extrem ity D17.23 [place] [address] [address] Sep, [place] [address] [address] Sep, [place] [address] [address] Sep, [place] [address] [id number] [address] [place] [phone] Sep, [facility] [address] [facility] [id number] [address] [place] [phone] Sep, [facility] [address] [facility] [id number] [address] [place] [address] Aug, Uncontrolled type 2 diabetes mellitus with hyperglycemia E11.65 ; Morbid obesity due to excess calories E66.01 ; Lipoma of torso D17.1 and BMI 50.0-59.9, adult Z68.43 [facility] [address] [id number] [address] [place] [phone] Jun, Encounter for immunization Z 23 [facility] [address] [id number] [address] [place] [phone] Jul, [facility] [address] [facility] [id number] [address] [place] [phone] Jun, Encounter for immunization Z 23 [facility] [address] [id number] [address] [place] [phone] May, [facility] [address] [facility] [id number] [address] [place] [phone] Jun, Encounter for immunization Z 23 [facility] [address] [facility] [id number] [address] [place] [id number] May, [facility] [address] [id number] [address] [place] [phone] May, [facility] [address] [id number] [address] [place] [phone] Apr, [facility] [address] [facility] [id number] [address] [place] [phone] Feb, [facility] [address] [id number] [address] [place] [phone] Feb, [facility] [address] [facility] [id number] [address] [place] [phone] Feb, [facility] [address] [id number] [address] [place] [address], [place] [address] January, [facility] [address] [id number] [address] [place] [address], [place] [address] January, [facility] [address] [id number] [address] [place] [address], [place] [address] Dec, [facility] [address] [id number] [address] [place] [address], [place] [address] Dec, [facility] [address] [id number] [address] [place] [address], [place] [address] Nov, [facility] [address] [id number] [address] [place] [address], [place] [address] Nov, [facility] [address] [id number] [address] [place] [address], [place] [address] Nov, [facility] [address] [id number] [address] [place] [address], [place] [address] Nov, [facility] [address] [id number] [address] [place] [address], [place] [address] Nov, [facility] [address] [id number] [address] [place] [id number] Nov, [facility] [address] [id number] [address] [place] [address], [place] [address] Nov, [facility] [address] [id number] [address] [place] [phone] Oct, [facility] [address] [id number] [address] [place] [address], [place] [address] Oct, [facility] [address] [id number] [address] [place] [address], [place] [address] Oct, [facility] [address] [id number] [address] [place] [address], [place] [address] Oct, [facility] [address] [id number] [address] [place] [address], [place] [address] Oct, [facility] [address] [id number] [address] [place] [address], [place] [address] Sep, [facility] [address] [id number] [address] [place] [address], [place] [address] Sep, [facility] [address] [id number] [address] [place] [address], [place] [address] Sep, [facility] [address] [id number] [address] [place] [address], [place] [address] Sep, [facility] [address] [id number] [address] [place] [address], [place] [address] Sep, [facility] [address] [id number] [address] [place] [address], [place] [address] Sep, [facility] [address] [id number] [address] [place] [address], [place] [address] Sep, [facility] [address] [id number] [address] [place] [address], [place] [address] Sep, [facility] [address] [id number] [address] [place] [address], [place] [address] Sep, [facility] [address] [id number] [address] [place] [address], [place] [address] Sep, [facility] [address] [id number] [address] [place] [address], [place] [address] Aug, [facility] [address] [id number] [address] [place] [address], [place] [address] Aug, [facility] [address] [id number] [address] [place] [address], [place] [address] Aug, [facility] [address] [id number] [address] [place] [address], [place] [address] Aug, [facility] [address] [id number] [address] [place] [address], [place] [address] Aug, [facility] [address] [id number] [address] [place] [address], [place] [address] Aug, [facility] [address] [id number] [address] [place] [address], [place] [address] Aug, [facility] [address] [id number] [address] [place] [address], [place] [address] Aug, [facility] [address] [id number] [address] [place] [address], [place] [address] Aug, [facility] [address] [id number] [address] [place] [address], [place] [address] Aug, [facility] [address] [id number] [address] [place] [address], [place] [address] Aug, [facility] [address] [id number] [address] [place] [address], [place] [address] Aug, [facility] [address] [id number] [address] [place] [address], [place] [address] Aug, [facility] [address] [id number] [address] [place] [address], [place] [address] Aug, [facility] [address] [id number] [address] [place] [address], [place] [address] Aug, [facility] [address] [id number] [address] [place] [address], [place] [address] Aug, [facility] [address] [id number] [address] [place] [address], [place] [address] Aug, [facility] [address] [id number] [address] [place] [address], [place] [address] Aug, [facility] [address] [id number] [address] [place] [address], [place] [address] Aug, [facility] [address] [id number] [address] [place] [address], [place] [address] Aug, [facility] [address] [id number] [address] [place] [address], [place] [address] 08 Aug, 2014 [facility] [address] [id number] [address] [place] [address], [place] [address] 08 Aug, 2014 [facility] [address] [id number] [address] [place] [address], [place] [address] 05 Aug, 2014 [facility] [address] [id number] [address] [place] [address], [place] [address] Aug, [facility] [address] [id number] [address] [place] [address] Jul, [facility] [address] [id number] [address] [place] [address], [place] [address] Jul, [facility] [address] [id number] [address] [place] [address], [place] [address] Jun, [facility] [address] [id number] [address] [place] [address], [place] [address] 27 Jun, 2014 [facility] [address] [id number] [address] [place] [address], [place] [address] 17 Jun, 2014 [facility] [address] [id number] [address] [place] [address], [place] [address] 17 Jun, 2014 [facility] [address] [id number] [address] [place] [address], [place] [address] 15 Jun, 2014 [facility] [address] [id number] [address] [place] [address] 15 Jun, 2014 [facility] [address] [id number] [address] [place] [address] 14 Jun, 2014 [facility] [address] [id number] [address] [place] [address], [place] [address] 14 Jun, 2014 [facility] [address] [id number] [address] [place] [address], [place] [address] 13 Jun, 2014 [facility] [address] [id number] [address] [place] [address], [place] [address] 13 Jun, 2014 [facility] [address] [id number] [address] [place] [address], [place] [address] Jun, [facility] [address] [id number] [address] [place] [address], [place] [address] Jun, [facility] [address] [id number] [address] [place] [address], [place] [address] Jun, [facility] [address] [id number] [address] [place] [address], [place] [address] Jun, [facility] [address] [id number] [address] [place] [address], [place] [address] May, [facility] [address] [id number] [address] [place] [address], [place] [address] May, [facility] [address] [id number] [address] [place] [address], [place] [address] May, [facility] [address] [id number] [address] [place] [address], [place] [address] May, [facility] [address] [id number] [address] [place] [address], [place] [address] May, [facility] [address] [id number] [address] [place] [address], [place] [address] May, [facility] [address] [id number] [address] [place] [address], [place] [address] May, [facility] [address] [id number] [address] [place] [address], [place] [address] May, [facility] [address] [id number] [address] [place] [address], [place] [address] Apr, [facility] [address] [id number] [address] [place] [address], [place] [address] Apr, [facility] [address] [id number] [address] [place] [address], [place] [address] Apr, [facility] [address] [id number] [address] [place] [address], [place] [address] Apr, [facility] [address] [id number] [facility] [address] Apr, [facility] [address] [id number] [address] [place] [address], [place] [address] Apr, [facility] [address] [id number] [address] [place] [address], [place] [address] Apr, [facility] [address] [id number] [address] [place] [address], [place] [address] Apr, [facility] [address] [id number] [address] [place] [address], [place] [address] Apr, [facility] [address] [id number] [address] [place] [address], [place] [address] Mar, [facility] [address] [id number] [address] [place] [address], [place] [address] Mar, [facility] [address] [id number] [address] [place] [address], [place] [address] Mar, [facility] [address] [id number] [address] [place] [address], [place] [address] Feb, [facility] [address] [id number] [address] [place] [address], [place] [address] Feb, [facility] [address] [id number] [address] [place] [address], [place] [address] Feb, [facility] [address] [id number] [address] [place] [address], [place] [address] Feb, [facility] [address] [id number] [address] [place] [address], [place] [address] Feb, [facility] [address] [id number] [address] [place] [address], [place] [address] Feb, [facility] [address] [id number] [address] [place] [address], [place] [address] 16 Feb, 2014 [facility] [address] [id number] [address] [place] [address], [place] [address] Feb, [facility] [address] [id number] [facility] [place] [address] Feb, [facility] [address] [id number] [facility] [place] [address] Feb, [facility] [address] [id number] [address] [place] [address], [place] [address] Feb, [facility] [address] [id number] [address] [place] [address], [place] [address] Feb, [facility] [address] [id number] [address] [place] [address], [place] [address] Feb, [facility] [address] [id number] [address] [place] [address], [place] [address] Feb, [facility] [address] [id number] [address] [place] [address], [place] [address] Feb, [facility] [address] [id number] [address] [place] [address], [place] [address] Feb, [facility] [address] [id number] [address] [place] [address], [place] [address] January, [facility] [address] [id number] [address] [place] [address], [place] [address] January, [facility] [address] [id number] [address] [place] [address], [place] [address] January, [facility] [address] [id number] [address] [place] [address], [place] [address] January, [facility] [address] [id number] [address] [place] [address], [place] [address] January, [facility] [address] [id number] [address] [place] [address], [place] [address] January, [facility] [address] [id number] [address] [place] [address], [place] [address] January, [facility] [address] [id number] [facility] [place] [address] January, [facility] [address] [id number] [facility] [place] [address] January, [facility] [address] [id number] [facility] [place] [address] January, [facility] [address] [id number] [facility] [place] [address] January, [facility] [address] [id number] [facility] [place] [address] January, [facility] [address] [id number] [address] [place] [address], [place] [address] January, [facility] [address] [id number] [address] [place] [address], [place] [address] January, [facility] [address] [id number] [address] [place] [address], [place] [address] January, [facility] [address] [id number] [address] [place] [address], [place] [address] January, [facility] [address] [id number] [address] [place] [place] [place] [address] [address] January, [facility] [address] [id number] [address] [place] [address], [place] [address] January, [facility] [address] [id number] [address] [place] [address], [place] [address] January, [facility] [address] [id number] [address] [place] [address], [place] [address] January, [facility] [address] [id number] [address] [place] [address], [place] [address] January, [facility] [address] [id number] [address] [place] [address], [place] [address] January, [facility] [address] [id number] [address] [place] [address], [place] [address] January, [facility] [address] [id number] [facility] [place] [address] January, [facility] [address] [id number] [address] [place] [address], [place] [address] January, [facility] [address] [id number] [address] [place] [address], [place] [address] January, [facility] [address] [id number] [address] [place] [address], [place] [address] Dec, [facility] [address] [id number] [address] [place] [address], [place] [address] Dec, [facility] [address] [id number] [address] [place] [address], [place] [address] Dec, [facility] [address] [id number] [address] [place] [address], [place] [address] Dec, [facility] [address] [id number] [address] [place] [address], [place] [address] Dec, [facility] [address] [id number] [address] [place] [address], [place] [address] Dec, [facility] [address] [id number] [address] [place] [address], [place] [address] Dec, [facility] [address] [id number] [address] [place] [address], [place] [address] Dec, [facility] [address] [id number] [address] [place] [address], [place] [address] Dec, [facility] [address] [id number] [address] [place] [address], [place] [address] Dec, [facility] [address] [id number] [address] [place] [address], [place] [address] Dec, [facility] [address] [id number] [address] [place] [address], [place] [address] Dec, [facility] [address] [id number] [facility] [place] [address] 14 Dec, 2013 [facility] [address] [id number] [address] [place] [address], [place] [address] 14 Dec, 2013 [facility] [address] [id number] [address] [place] [address], [place] [address] Dec, [facility] [address] [id number] [address] [place] [address], [place] [address] Dec, [facility] [address] [id number] [address] [place] [address], [place] [address] Dec, [facility] [address] [id number] [address] [place] [address], [place] [address] Dec, [facility] [address] [id number] [address] [place] [address], [place] [address] Dec, [facility] [address] [id number] [address] [place] [address], [place] [address] Dec, [facility] [address] [id number] [address] [place] [address], [place] [address] Dec, [facility] [address] [id number] [address] [place] [address], [place] [address] Dec, [facility] [address] [id number] [address] [place] [address], [place] [address] Nov, [facility] [address] [id number] [address] [place] [address], [place] [address] Nov, [facility] [address] [id number] [address] [place] [address], [place] [address] Nov, [facility] [address] [id number] [address] [place] [address], [place] [address] Nov, [facility] [address] [id number] [address] [place] [address], [place] [address] Nov, [facility] [address] [id number] [address] [place] [address], [place] [address] Nov, [facility] [address] [id number] [facility] [place] [address] Nov, [facility] [address] [id number] [address] [place] [address], [place] [address] Nov, [facility] [address] [id number] [address] [place] [address], [place] [address] 18 Nov, 2013 [facility] [address] [id number] [address] [place] [address], [place] [address] 18 Nov, 2013 [facility] [address] [id number] [address] [place] [address], [place] [address] 18 Nov, 2013 [facility] [address] [id number] [address] [place] [address], [place] [address] 18 Nov, 2013 [facility] [address] [id number] [address] [place] [address], [place] [address] Nov, [facility] [address] [id number] [address] [place] [address], [place] [address] 14 Nov, 2013 [facility] [address] [id number] [address] [place] [address], [place] [address] Nov, [facility] [address] [id number] [address] [place] [address], [place] [address] Nov, [facility] [address] [id number] [address] [place] [address], [place] [address] Oct, [facility] [address] [id number] [address] [place] [address], [place] [address] Oct, [facility] [address] [id number] [address] [place] [address], [place] [address] Oct, [facility] [address] [id number] [address] [place] [address], [place] [address] Oct, [facility] [address] [id number] [address] [place] [address], [place] [address] Oct, [facility] [address] [id number] [address] [place] [address], [place] [address] Oct, [facility] [address] [id number] [address] [place] [address], [place] [address] Oct, [facility] [address] [id number] [address] [place] [address], [place] [address] Oct, [facility] [address] [id number] [address] [place] [address], [place] [address] Oct, [facility] [address] [id number] [address] [place] [address], [place] [address] 17 Oct, 2013 [facility] [address] [id number] [address] [place] [address], [place] [address] Oct, [facility] [address] [id number] [address] [place] [address], [place] [address] Oct, [facility] [address] [id number] [address] [place] [address], [place] [address] Oct, [facility] [address] [id number] [address] [place] [address], [place] [address] 04 Oct, 2013 [facility] [address] [id number] [address] [place] [address], [place] [address] 03 Oct, 2013 [facility] [address] [id number] [address] [place] [address], [place] [address] Sep, [facility] [address] [id number] [address] [place] [address], [place] [address] Sep, [facility] [address] [id number] [address] [place] [address], [place] [address] Sep, [facility] [address] [id number] [address] [place] [address], [place] [address] Sep, [facility] [address] [id number] [address] [place] [address], [place] [address] Sep, [facility] [address] [id number] [address] [place] [address], [place] [address] 14 Sep, 2013 [facility] [address] [id number] [address] [place] [address], [place] [address] Sep, [facility] [address] [id number] [address] [place] [address], [place] [address] Sep, [facility] [address] [id number] [address] [place] [address], [place] [address] Sep, [facility] [address] [id number] [address] [place] [address], [place] [address] Sep, [facility] [address] [id number] [address] [place] [address], [place] [address] Sep, [facility] [address] [id number] [address] [place] [address], [place] [address] Sep, [facility] [address] [id number] [address] [place] [address], [place] [address] Sep, [facility] [address] [id number] [address] [place] [address], [place] [address] 30 Aug, 2013 [facility] [address] [id number] [address] [place] [address], [place] [address] 30 Aug, 2013 [facility] [address] [id number] [address] [place] [address], [place] [address] 24 Aug, 2013 [facility] [address] [id number] [address] [place] [address], [place] [address] 24 Aug, 2013 [facility] [address] [id number] [address] [place] [address], [place] [address] 17 Aug, 2013 [facility] [address] [id number] [address] [place] [address], [place] [address] 17 Aug, 2013 [facility] [address] [id number] [address] [place] [address], [place] [address] 16 Aug, 2013 [facility] [address] [id number] [address] [place] [address], [place] [address] 16 Aug, 2013 [facility] [address] [id number] [address] [place] [address], [place] [address] 12 Aug, 2013 [facility] [address] [id number] [address] [place] [address], [place] [address] 12 Aug, 2013 [facility] [address] [id number] [address] [place] [address], [place] [address] 10 Aug, 2013 [facility] [address] [id number] [address] [place] [address], [place] [address] 10 Aug, 2013 [facility] [address] [id number] [address] [place] [address], [place] [address] 02 Aug, 2013 [facility] [address] [id number] [address] [place] [address], [place] [address] 02 Aug, 2013 [facility] [address] [id number] [address] [place] [address], [place] [address] 19 Jul, 2013 [facility] [address] [id number] [address] [place] [address], [place] [address] 19 Jul, 2013 [facility] [address] [id number] [address] [place] [address], [place] [address] 18 Jul, 2013 [facility] [address] [id number] [address] [place] [address], [place] [address] 18 Jul, 2013 [facility] [address] [id number] [address] [place] [address], [place] [address] 14 Jul, 2013 [facility] [address] [id number] [address] [place] [address], [place] [address] 14 Jul, 2013 [facility] [address] [id number] [address] [place] [address], [place] [address] 14 Jul, 2013 [facility] [address] [id number] [address] [place] [address], [place] [address] 14 Jul, 2013 [facility] [address] [id number] [address] [place] [address], [place] [address] 07 Jul, 2013 [facility] [address] [id number] [address] [place] [address], [place] [address] 07 Jul, 2013 [facility] [address] [id number] [address] [place] [address], [place] [address] 06 Jul, 2013 [facility] [address] [id number] [address] [place] [address], [place] [address] 06 Jul, 2013 [facility] [address] [id number] [address] [place] [address], [place] [address] 05 Jul, 2013 [facility] [address] [id number] [address] [place] [address], [place] [address] 05 Jul, 2013 [facility] [address] [id number] [address] [place] [address], [place] [address] 23 Jun, 2013 [facility] [address] [id number] [address] [place] [address], [place] [address] 23 Jun, 2013 [facility] [address] [id number] [address] [place] [address], [place] [address] 15 Jun, 2013 [facility] [address] [id number] [address] [place] [address], [place] [address] 15 Jun, 2013 [facility] [address] [id number] [address] [place] [address], [place] [address] 14 Jun, 2013 [facility] [address] [id number] [address] [place] [address], [place] [address] 24 May, 2013 [facility] [address] [id number] [address] [place] [address], [place] [address] 20 May, 2012 [facility] [address] [id number] [address] [place] [address], [place] [address] 20 Sep, 2012 [facility] [address] [id number] [address] [place] [address], [place] [address] 20 Sep, 2012 [facility] [address] [id number] [address] [place] [address], [place] [address] 19 Sep, 2012 [facility] [address] [id number] [address] [place] [address], [place] [address] 13 May, 2012 [facility] [address] [id number] [address] [place] [address], [place] [address] 12 May, 2012 [facility] [address] [id number] [address] [place] [address], [place] [address] 12 May, 2012 [facility] [address] [id number] [address] [place] [address], [place] [address] 11 May, 2012 [facility] [address] [id number] [address] [place] [address], [place] [address] 11 May, 2012 [facility] [address] [id number] [address] [place] [address], [place] [address] 11 May, 2012 [facility] [address] [id number] [address] [place] [address], [place] [address] 09 May, 2012 [facility] [address] [id number] [address] [place] [address], [place] [address] 05 May, 2012 [facility] [address] [id number] [address] [place] [address], [place] [address] 04 May, 2012 [facility] [address] [id number] [address] [place] [address], [place] [address] 03 May, 2012 [facility] [address] [id number] [address] [place] [address], [place] [address] Apr, [facility] [address] [id number] [address] [place] [address], [place] [address] Apr, [facility] [address] [id number] [address] [place] [address], [place] [address] Apr, [facility] [address] [id number] [address] [place] [address], [place] [address] Apr, [facility] [address] [id number] [address] [place] [address], [place] [address] Apr, [facility] [address] [id number] [address] [place] [address], [place] [address] Apr, [facility] [address] [id number] [address] [place] [address], [place] [address] Apr, [facility] [address] [id number] [address] [place] [address], [place] [address] Apr, [facility] [address] [id number] [address] [place] [address], [place] [address] Apr, [facility] [address] [id number] [address] [place] [address], [place] [address] Mar, [facility] [address] [id number] [address] [place] [address], [place] [address] Mar, [facility] [address] [id number] [address] [place] [address], [place] [address] Mar, [facility] [address] [id number] [address] [place] [address], [place] [address] Mar, [facility] [address] [id number] [address] [place] [address], [place] [address] Mar, [facility] [address] [id number] [address] [place] [address], [place] [address] Mar, [facility] [address] [id number] [address] [place] [address], [place] [address] Mar, [facility] [address] [id number] [address] [place] [address], [place] [address] Mar, [facility] [address] [id number] [address] [place] [address], [place] [address] Mar, [facility] [address] [id number] [address] [place] [address], [place] [address] Mar, [facility] [address] [id number] [address] [place] [address], [place] [address] Mar, [facility] [address] [id number] [address] [place] [address], [place] [address] Feb, [facility] [address] [id number] [address] [place] [address], [place] [address] Feb, [facility] [address] [id number] [address] [place] [address], [place] [address] Feb, [facility] [address] [id number] [address] [place] [address], [place] [address] Feb, [facility] [address] [id number] [address] [place] [address], [place] [address] Feb, [facility] [address] [id number] [address] [place] [address], [place] [address] Feb, [facility] [address] [id number] [address] [place] [address], [place] [address] Feb, [facility] [address] [id number] [address] [place] [address], [place] [address] Feb, [facility] [address] [id number] [address] [place] [address], [place] [address] Feb, [facility] [address] [id number] [address] [place] [address], [place] [address] January, [facility] [address] [id number] [address] [place] [address], [place] [address] January, [facility] [address] [id number] [address] [place] [address], [place] [address] January, [facility] [address] [id number] [address] [place] [address], [place] [address] January, [facility] [address] [id number] [address] [place] [address], [place] [address] January, [facility] [address] [id number] [address] [place] [address], [place] [address] January, [facility] [address] [id number] [address] [place] [address], [place] [address] January, [facility] [address] [id number] [address] [place] [address], [place] [address] January, [facility] [address] [id number] [address] [place] [address], [place] [address] January, [facility] [address] [id number] [address] [place] [address], [place] [address] January, [facility] [address] [id number] [address] [place] [address], [place] [address] January, [facility] [address] [id number] [address] [place] [address], [place] [address] January, [facility] [address] [id number] [address] [place] [address], [place] [address] January, [facility] [address] [id number] [address] [place] [address], [place] [address] January, [facility] [address] [id number] [address] [place] [address], [place] [address] January, [facility] [address] [id number] [address] [place] [address], [place] [address] January, [facility] [address] [id number] [address] [place] [address], [place] [address] January, [facility] [address] [id number] [address] [place] [address], [place] [address] January, [facility] [address] [id number] [address] [place] [address], [place] [address] January, [facility] [address] [id number] [address] [place] [address], [place] [address] January, [facility] [address] [id number] [address] [place] [address], [place] [address] January, [facility] [address] [id number] [address] [place] [address], [place] [address] January, [facility] [address] [id number] [address] [place] [address], [place] [address] January, [facility] [address] [id number] [address] [place] [address], [place] [address] Dec, [facility] [address] [id number] [address] [place] [address], [place] [address] Dec, [facility] [address] [id number] [address] [place] [address], [place] [address] 17 Dec, 2012 [facility] [address] [id number] [address] [place] [address], [place] [address] 16 Dec, 2012 [facility] [address] [id number] [address] [place] [address], [place] [address] Dec, [facility] [address] [id number] [address] [place] [address], [place] [address] Nov, [facility] [address] [id number] [address] [place] [address], [place] [address] Oct, [facility] [address] [id number] [address] [place] [address], [place] [address] Oct, [facility] [address] [id number] [address] [place] [address], [place] [address] Oct, [facility] [address] [id number] [address] [place] [address], [place] [address] Oct, [facility] [address] [id number] [address] [place] [address], [place] [address] Oct, [facility] [address] [id number] [address] [place] [address], [place] [address] Sep, [facility] [address] [id number] [address] [place] [address], [place] [address] Sep, [facility] [address] [id number] [address] [place] [address], [place] [address] Sep, [facility] [address] [id number] [address] [place] [address], [place] [address] Aug, [facility] [address] [id number] [address] [place] [address], [place] [address] Aug, [facility] [address] [id number] [address] [place] [address], [place] [address] Aug, [facility] [address] [id number] [address] [place] [address] Aug, [facility] [address] [id number] [address] [place] [address], [place] [address] Jul, [facility] [address] [id number] [address] [place] [id number] Jul, [facility] [address] [id number] [address] [place] [address], [place] [address] Jul, [facility] [address] [id number] [address] [place] [phone] Jul, [facility] [address] [id number] [address] [place] [address], [place] [address] Jul, [facility] [address] [id number] [address] [place] [phone] Jul, [facility] [address] [id number] [address] [place] [address], [place] [address] Jun, [facility] [address] [id number] [address] [place] [phone] Jun, [facility] [address] [id number] [address] [place] [phone] Jun, [facility] [address] [id number] [address] [place] [id number] Jun, [facility] [address] [id number] [address] [place] [id number] Jun, [facility] [address] [id number] [address] [place] [phone] Jun, [facility] [address] [id number] [address] [place] [address], [place] [address] Jun, [facility] [address] [id number] [address] [place] [phone] Jun, [facility] [address] [id number] [address] [place] [id number] Jun, [facility] [address] [id number] [address] [place] [address], [place] [address] Jun, [facility] [address] [id number] [address] [place] [address], [place] [address] 17 May, 2012 [facility] [address] [id number] [address] [place] [address], [place] [address] 08 May, 2012 [facility] [address] [id number] [address] [place] [address], [place] [address] May, [facility] [address] [id number] [address] [place] [address], [place] [address] Apr, [facility] [address] [id number] [address] [place] [address], [place] [address] Apr, [facility] [address] [id number] [address] [place] [address], [place] [address] Apr, [facility] [address] [id number] [address] [place] [address], [place] [address] Apr, [facility] [address] [id number] [address] [place] [address], [place] [address] Apr, [facility] [address] [id number] [address] [place] [address], [place] [address] Apr, [facility] [address] [id number] [address] [place] [address], [place] [address] Apr, [facility] [address] [id number] [address] [place] [address], [place] [address] Apr, [facility] [address] [id number] [address] [place] [address], [place] [address] Apr, [facility] [address] [id number] [address] [place] [address], [place] [address] Mar, [facility] [address] [id number] [address] [place] [address], [place] [address] Mar, [facility] [address] [id number] [address] [place] [address], [place] [address] Mar, [facility] [address] [id number] [address] [place] [address], [place] [address] Mar, [facility] [address] [id number] [address] [place] [address], [place] [address] Feb, [facility] [address] [id number] [address] [place] [address], [place] [address] Feb, [facility] [address] [id number] [address] [place] [address], [place] [address] Feb, [facility] [address] [id number] [address] [place] [address], [place] [address] January, [facility] [address] [id number] [address] [place] [address], [place] [address] January, [facility] [address] [id number] [address] [place] [address], [place] [address] January, [facility] [address] [id number] [address] [place] [address], [place] [address] January, [facility] [address] [id number] [address] [place] [address], [place] [address] January, [facility] [address] [id number] [address] [place] [address], [place] [address] Dec, [facility] [address] [id number] [address] [place] [address], [place] [address] Dec, [facility] [address] [id number] [address] [place] [address], [place] [address] 16 Dec, 2011 [facility] [address] [id number] [address] [place] [address], [place] [address] Oct, [facility] [address] [id number] [address] [place] [address], [place] [address] Oct, [facility] [address] [id number] [address] [place] [address], [place] [address] Oct, [facility] [address] [id number] [address] [place] [address], [place] [address] 24 Sep, 2011 [facility] [address] [id number] [address] [place] [address], [place] [address] Sep, [facility] [address] [id number] [address] [place] [address], [place] [address] 07 Aug, 2011 [facility] [address] [id number] [address] [place] [address], [place] [address] Jul, [facility] [address] [id number] [address] [place] [address], [place] [address] Jul, [facility] [address] [id number] [address] [place] [address], [place] [address] Mar, [facility] [address] [id number] [address] [place] [address], [place] [address] Aug, [facility] [address] [id number] [address] [place] [address], [place] [address] 10 Jul, 2010 [facility] [address] [id number] [address] [place] [address], [place] [address] Jul, [facility] [address] [id number] [address] [place] [address], [place] [address] Jul, [facility] [address] [id number] [address] [place] [address], [place] [address] Jul, [facility] [address] [id number] [address] [place] [address], [place] [address] 14 Jun, 2010 [facility] [address] [id number] [address] [place] [address], [place] [address] Jun, [facility] [address] [id number] [address] [place] [address], [place] [address] Apr, [facility] [address] [id number] [address] [place] [address], [place] [address] Aug, [facility] [address] [id number] [address] [place] [address], [place] [address] Jul, [facility] [address] [id number] [address] [place] [id number] 17 Jul, 2009 [facility] [address] [id number] [address] [place] [address] Jul, [facility] [address] [id number] [address] [place] [id number] 23 Jun, 2009 [facility] [address] [id number] [address] [place] [id number] 10 May, 2009 [facility] [address] [id number] [address] [place] [address] 14 Dec, 2008 [facility] [address] [id number] [address] [place] [address] Nov, [facility] [address] [facility] [id number] [address] [place] [id number] Oct, [facility] [address] [facility] [id number] [address] [place] [id number] Aug, [facility] [address] [id number] [address] [place] [address] Aug, [facility] [address] [facility] [id number] [address] [place] [phone] Jun, IMMUNIZATIONS No Known Immunizations SOCIAL HISTORY [...] x 3 day s 04/2012 Hospitalization History [facility] [place]- Right wrist injury 03/29/2018
--- OUTSIDE RECORDS SUMMARY | 2020-04-09 00:19 | XMS REPORT ---
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 Name Role Phone Migration, Doctor Unavailable Unavailable PROBLEMS Type Condition ICD9-CM Code CFP80-YW Code Onset Dates Condition S tatus SNOMED Code Problem Irregular menses N92.6 Active 801 25254 Problem Migraine with aura and without status migrainosu s, not intractable G43.109 Active 2201346 Problem Uncontrolled type 2 diabetes mellitus with hyperglycemia E11.65 Active 393939466 Problem Morbid obesity due to excess calories E66.01 Active 921252019 Problem RLS (restless legs syndrome) G25.81 A ctive 43790000 Problem Morbid obesity E66.01 Active 17711 6002 ALLERGIES No Information ENCOUNTERS Encounter Location Date Diagnosis [facility] [address] [facility] [id number] [address] [place] [address] 28 Nov, 2019 [facility] [address] [facility] [id number] [address] [place] [address] 03 Nov, 2019 [facility] [address] [facility] [id number] [address] [place] [address] 02 Nov, 2019 RLS (restless legs syndrome) G25.81 [facility] [address] [facility] [id number] [address] [place] [address] 15 Oct, 2019 [facility] [address] [facility] [id number] [address] [place] [address] 09 Oct, 2019 Influenza J11.1 [facility] [address] [facility] [id number] [address] [place] [address] Sep, [facility] [address] [facility] [id number] [address] [place] [address] Sep, [facility] [address] [facility] [id number] [address] [place] [address] Sep, [facility] [address] [id number] [address] [place] [address] 13 Sep, 2019 [facility] [address] [id number] [address] [place] [address] 10 Sep, 2019 Pneumonia of left lower lobe due to infectious organism J18.9 and Migraine with aura and without status migrainosus, not intractable G43.109 [facility] [address] [id number] [address] [place] [address] 10 Sep, 2019 [facility] [address] [id number] [address] [place] [address] Sep, [facility] [address] [id number] [address] [place] [address] Sep, [facility] [address] [id number] [address] [place] [address] 08 Sep, 2019 [facility] [address] [id number] [address] [place] [address] Sep, Pneumonia of left lower lobe due to infectious organism J18.9 and Migraine with aura and without status migrainosus, not intractable G43.109 [place] [place] [address] [id number] [address] [place] [address] Aug, Irregular menses N92.6 ; Wel l woman exam Z01.419 ; Pelvic cramping R10.2 and Left breast lump N63.20 [facility] [address] [id number] [address] [place] [address] Aug, [place] [address] [id number] [address] [place] [address] Aug, Well woman exam Z01.419 ; Le ft breast lump N63.20 ; Irregular menses N92.6 ; Encounter for immunization Z23 ; Pelvic cramping R10.2 and Screening for cervical cancer Z12.4 [place] [address] [id number] [address] [place] [address] Aug, [place] [id number] [facility] [id number] [address] [place] [address] Aug, [facility] [address] [facility] [id number] [address] [place] [address] Aug, [facility] [address] [facility] [id number] [address] [place] [address] Jul, [facility] [address] [facility] [id number] [place] [phone] Jun, [facility] [address] [facility] [id number] [address] [place] [address] Jun, [facility] [address] [address] Jun, [facility] [address] [place] [id number] [address] [place] [address] Jun, BMI 50.0-59.9, adult Z68.43 [facility] [address] [place] [id number] [address] [place] [address] Jun, [facility] [address] [place] [id number] [address] [place] [address] May, Acute non-recurrent sinusiti s, unspecified location J01.90 ; Diarrhea, unspecified R19.7 ; Vomiting, unspecified R11.10 and Morbid obesity E66.01 [facility] [address] [place] [id number] [address] [place] [address] Apr, [facility] [address] [place] [id number] [address] [place] [address] Apr, Anemia due to other cause, n ot classified D64.89 and D-dimer, elevated R79.89 [facility] [address] [place] [id number] [address] [place] [address] Apr, [facility] [address] [place] [id number] [address] [place] [address] Apr, [facility] [address] [place] [id number] [address] [place] [address] Mar, Anemia due to other cause, n ot classified D64.89 and D-dimer, elevated R79.89 [place] [address] [place] [id number] [address] [place] [address] Mar, Leg edema, right R60.0 ; Hig h risk medication use Z79.899 and Morbid obesity E66.01 [place] [address] [address] Mar, BMI 50.0-59.9, adult Z68.43 [place] [address] [address] Mar, [place] [address] [address] January, Uncontrolled type 2 diabetes mellitus with hyperglycemia E11.65 ; RLS (restless legs syndrome) G25.81 and Morbid obesity E66.01 [place] [address] [place] [id number] [address] [place] [address] Oct, Lipoma of right lower extrem ity D17.23 [place] [address] [place] [id number] [place] [address] Oct, Lipoma of right lower extrem ity D17.23 [place] [address] [place] [id number] [address] [place] [address] Sep, [place] [address] [place] [id number] [address] [place] [address] Sep, [place] [address] [place] [id number] [address] [place] [address] Sep, [place] [address] [place] [id number] [address] [place] [address] Sep, [place] [address] [place] [id number] [address] [place] [address] Sep, [place] [address] [id number] [address] [place] [address] Aug, Uncontrolled type 2 diabetes mellitus with hyperglycemia E11.65 ; Morbid obesity due to excess calories E66.01 ; Lipoma of torso D17.1 and BMI 50.0-59.9, adult Z68.43 [facility] [address] [id number] [address] [place] [address] Jun, Encounter for immunization Z 23 [facility] [address] [id number] [address] [place] [address] Jul, [facility] [address] [id number] [address] [place] [address] Jun, Encounter for immunization Z 23 [facility] [address] [id number] [address] [place] [address] 30 May, 2016 [facility] [address] [id number] [address] [place] [address] Jun, Encounter for immunization Z 23 [facility] [address] [id number] [address] [place] [address] May, [facility] [address] [id number] [address] [place] [address] May, [facility] [address] [id number] [address] [place] [address] Apr, [facility] [address] [id number] [address] [place] [address] Feb, [facility] [address] [id number] [address] [place] [address] Feb, [facility] [address] [id number] [address] [place] [address] Feb, [facility] [address] [id number] [address] [place] [address] January, [facility] [address] [facility] [id number] [address] [place] [address] January, [facility] [address] [id number] [address] [place] [address], [place] [address] Dec, [facility] [address] [id number] [address] [place] [address], [place] [address] Dec, [facility] [address] [id number] [address] [place] [address], [place] [address] Nov, [facility] [address] [id number] [address] [place] [address], [place] [address] Nov, [facility] [address] [id number] [address] [place] [address], [place] [address] Nov, [facility] [address] [id number] [address] [place] [address], [place] [address] Nov, [facility] [address] [id number] [address] [place] [address], [place] [address] Nov, [facility] [address] [id number] [address] [place] [address], [place] [address] Nov, [facility] [address] [id number] [address] [place] [address], [place] [address] Nov, [facility] [address] [id number] [address] [place] [address], [place] [address] Oct, [facility] [address] [id number] [address] [place] [address], [place] [address] Oct, [facility] [address] [id number] [address] [place] [address], [place] [address] Oct, [facility] [address] [id number] [address] [place] [address], [place] [address] Oct, [facility] [address] [id number] [address] [place] [address], [place] [address] Oct, [facility] [address] [id number] [address] [place] [address], [place] [address] Sep, [facility] [address] [id number] [address] [place] [address], [place] [address] 31 Sep, 2014 [facility] [address] [id number] [address] [place] [address], [place] [address] Sep, [facility] [address] [id number] [address] [place] [address], [place] [address] Sep, [facility] [address] [id number] [address] [place] [address], [place] [address] Sep, [facility] [address] [id number] [address] [place] [address], [place] [address] Sep, [facility] [address] [id number] [address] [place] [address], [place] [address] Sep, [facility] [address] [id number] [address] [place] [address], [place] [address] Sep, [facility] [address] [id number] [address] [place] [address], [place] [address] Sep, [facility] [address] [id number] [address] [place] [address], [place] [address] Sep, [facility] [address] [id number] [address] [place] [address], [place] [address] Aug, [facility] [address] [id number] [address] [place] [address], [place] [address] Aug, [facility] [address] [id number] [address] [place] [address], [place] [address] Aug, [facility] [address] [id number] [address] [place] [address], [place] [address] Aug, [facility] [address] [id number] [address] [place] [address], [place] [address] Aug, [facility] [address] [id number] [address] [place] [address], [place] [address] 29 Aug, 2014 [facility] [address] [id number] [address] [place] [address], [place] [address] Aug, [facility] [address] [id number] [address] [place] [address], [place] [address] Aug, [facility] [address] [id number] [address] [place] [address], [place] [address] Aug, [facility] [address] [id number] [address] [place] [address], [place] [address] Aug, [facility] [address] [id number] [address] [place] [address], [place] [address] Aug, [facility] [address] [id number] [address] [place] [address], [place] [address] Aug, [facility] [address] [id number] [address] [place] [address], [place] [address] Aug, [facility] [address] [id number] [address] [place] [address], [place] [address] Aug, [facility] [address] [id number] [address] [place] [address], [place] [address] Aug, [facility] [address] [id number] [address] [place] [address], [place] [address] Aug, [facility] [address] [id number] [address] [place] [address], [place] [address] Aug, [facility] [address] [id number] [address] [place] [address], [place] [address] Aug, [facility] [address] [id number] [address] [place] [address], [place] [address] Aug, [facility] [address] [id number] [address] [place] [address], [place] [address] Aug, [facility] [address] [id number] [address] [place] [address], [place] [address] Aug, [facility] [address] [id number] [address] [place] [address], [place] [address] Aug, [facility] [address] [id number] [address] [place] [address], [place] [address] 05 Aug, 2014 [facility] [address] [id number] [address] [place] [address], [place] [address] 05 Aug, 2014 [facility] [address] [id number] [address] [place] [address], [place] [address] Jul, [facility] [address] [id number] [address] [place] [address], [place] [address] Jul, [facility] [address] [id number] [address] [place] [address] 27 Jun, 2014 [facility] [address] [id number] [address] [place] [address], [place] [address] 27 Jun, 2014 [facility] [address] [id number] [address] [place] [address], [place] [address] 17 Jun, 2014 [facility] [address] [id number] [address] [place] [address], [place] [address] 17 Jun, 2014 [facility] [address] [id number] [address] [place] [address], [place] [address] 15 Jun, 2014 [facility] [address] [id number] [address] [place] [address], [place] [address] 15 Jun, 2014 [facility] [address] [id number] [address] [place] [address], [place] [address] 14 Jun, 2014 [facility] [address] [id number] [address] [place] [address] 14 Jun, 2014 [facility] [address] [id number] [address] [place] [address] 13 Jun, 2014 [facility] [address] [id number] [address] [place] [address], [place] [address] 13 Jun, 2014 [facility] [address] [id number] [address] [place] [address], [place] [address] 13 Jun, 2014 [facility] [address] [id number] [address] [place] [address], [place] [address] 13 Jun, 2014 [facility] [address] [id number] [facility] [place] [address] Jun, [facility] [address] [id number] [address] [place] [address], [place] [address] Jun, [facility] [address] [id number] [address] [place] [address], [place] [address] May, 2013 [facility] [address] [id number] [address] [place] [address], [place] [address] May, 2013 [facility] [address] [id number] [address] [place] [address], [place] [address] May, 2013 [facility] [address] [id number] [address] [place] [address], [place] [address] May, 2013 [facility] [address] [id number] [address] [place] [address], [place] [address] May, 2013 [facility] [address] [id number] [address] [place] [address], [place] [address] May, 2013 [facility] [address] [id number] [address] [place] [address], [place] [address] May, [facility] [address] [id number] [address] [place] [address], [place] [address] May, [facility] [address] [id number] [address] [place] [address], [place] [address] Apr, [facility] [address] [id number] [address] [place] [address], [place] [address] Apr, [facility] [address] [id number] [address] [place] [address], [place] [address] Apr, [facility] [address] [id number] [address] [place] [address], [place] [address] Apr, [facility] [address] [id number] [address] [place] [address], [place] [address] Apr, [facility] [address] [id number] [address] [place] [address], [place] [address] Apr, [facility] [address] [id number] [facility] [place] [address] Apr, [facility] [address] [id number] [address] [place] [address], [place] [address] Apr, [facility] [address] [id number] [address] [place] [address], [place] [address] Apr, [facility] [address] [id number] [address] [place] [address], [place] [address] Mar, [facility] [address] [id number] [address] [place] [address], [place] [address] Mar, [facility] [address] [id number] [address] [place] [address], [place] [address] Mar, [facility] [address] [id number] [address] [place] [address], [place] [address] Feb, [facility] [address] [id number] [address] [place] [address], [place] [address] Feb, [facility] [address] [id number] [address] [place] [address], [place] [address] Feb, [facility] [address] [id number] [address] [place] [address], [place] [address] Feb, [facility] [address] [id number] [address] [place] [address], [place] [address] Feb, [facility] [address] [id number] [address] [place] [address], [place] [address] 17 Feb, 2014 [facility] [address] [id number] [address] [place] [address], [place] [address] Feb, [facility] [address] [id number] [address] [place] [address], [place] [address] Feb, [facility] [address] [id number] [address] [place] [address], [place] [address] 16 Feb, 2014 [facility] [address] [id number] [address] [place] [address], [place] [address] Feb, [facility] [address] [id number] [facility] [place] [address] Feb, [facility] [address] [id number] [facility] [place] [address] Feb, [facility] [address] [id number] [address] [place] [address], [place] [address] Feb, [facility] [address] [id number] [address] [place] [address], [place] [address] Feb, [facility] [address] [id number] [address] [place] [address], [place] [address] Feb, [facility] [address] [id number] [address] [place] [address], [place] [address] Feb, [facility] [address] [id number] [address] [place] [address], [place] [address] January, [facility] [address] [id number] [address] [place] [address], [place] [address] January, [facility] [address] [id number] [address] [place] [address], [place] [address] January, [facility] [address] [id number] [address] [place] [address], [place] [address] January, [facility] [address] [id number] [address] [place] [address], [place] [address] January, [facility] [address] [id number] [address] [place] [address], [place] [address] January, [facility] [address] [id number] [address] [place] [address], [place] [address] January, [facility] [address] [id number] [address] [place] [address], [place] [address] January, [facility] [address] [id number] [address] [place] [address], [place] [address] January, [facility] [address] [id number] [facility] [place] [address] January, [facility] [address] [id number] [facility] [place] [address] January, [facility] [address] [id number] [facility] [place] [address] January, [facility] [address] [id number] [address] [place] [address], [place] [address] January, [facility] [address] [id number] [facility] [place] [address] January, [facility] [address] [id number] [address] [place] [address], [place] [address] January, [facility] [address] [id number] [address] [place] [address], [place] [address] January, [facility] [address] [id number] [address] [place] [address], [place] [address] January, [facility] [address] [id number] [address] [place] [address], [place] [address] January, [facility] [address] [id number] [address] [place] [address], [place] [address] January, [facility] [address] [id number] [address] [place] [address], [place] [address] January, [facility] [address] [id number] [address] [place] [address], [place] [address] January, [facility] [address] [id number] [address] [place] [address], [place] [address] January, [facility] [address] [id number] [address] [place] [address], [place] [address] January, [facility] [address] [id number] [address] [place] [address], [place] [address] January, [facility] [address] [id number] [address] [place] [address], [place] [address] January, [facility] [address] [id number] [facility] [place] [address] January, [facility] [address] [id number] [facility] [place] [address] Dec, [facility] [address] [id number] [address] [place] [address], [place] [address] Dec, [facility] [address] [id number] [address] [place] [address], [place] [address] Dec, [facility] [address] [id number] [address] [place] [address], [place] [address] Dec, [facility] [address] [id number] [address] [place] [address], [place] [address] Dec, [facility] [address] [id number] [address] [place] [address], [place] [address] Dec, [facility] [address] [id number] [address] [place] [address], [place] [address] Dec, [facility] [address] [id number] [address] [place] [address], [place] [address] Dec, [facility] [address] [id number] [address] [place] [address], [place] [address] Dec, [facility] [address] [id number] [address] [place] [address], [place] [address] Dec, [facility] [address] [id number] [address] [place] [address], [place] [address] Dec, [facility] [address] [id number] [address] [place] [address], [place] [address] Dec, [facility] [address] [id number] [address] [place] [address], [place] [address] Dec, [facility] [address] [id number] [address] [place] [address], [place] [address] Dec, [facility] [address] [id number] [facility] [place] [address] Dec, [facility] [address] [id number] [address] [place] [address], [place] [address] Dec, [facility] [address] [id number] [address] [place] [address], [place] [address] Dec, [facility] [address] [id number] [address] [place] [address], [place] [address] Dec, [facility] [address] [id number] [address] [place] [address], [place] [address] Dec, [facility] [address] [id number] [address] [place] [address], [place] [address] Dec, [facility] [address] [id number] [address] [place] [address], [place] [address] Dec, [facility] [address] [id number] [address] [place] [address], [place] [address] Dec, [facility] [address] [id number] [address] [place] [address], [place] [address] Nov, [facility] [address] [id number] [address] [place] [address], [place] [address] Nov, [facility] [address] [id number] [address] [place] [address], [place] [address] Nov, [facility] [address] [id number] [address] [place] [address], [place] [address] Nov, [facility] [address] [id number] [address] [place] [address], [place] [address] Nov, [facility] [address] [id number] [address] [place] [address], [place] [address] Nov, [facility] [address] [id number] [address] [place] [address], [place] [address] Nov, [facility] [address] [id number] [address] [place] [address], [place] [address] Nov, [facility] [address] [id number] [facility] [place] [address] Nov, [facility] [address] [id number] [address] [place] [address], [place] [address] Nov, [facility] [address] [id number] [address] [place] [address], [place] [address] 18 Nov, 2013 [facility] [address] [id number] [address] [place] [address], [place] [address] Nov, [facility] [address] [id number] [address] [place] [address], [place] [address] Nov, [facility] [address] [id number] [address] [place] [address], [place] [address] Nov, [facility] [address] [id number] [address] [place] [address], [place] [address] Nov, [facility] [address] [id number] [address] [place] [address], [place] [address] Nov, [facility] [address] [id number] [address] [place] [address], [place] [address] Oct, [facility] [address] [id number] [address] [place] [address], [place] [address] Oct, [facility] [address] [id number] [address] [place] [address], [place] [address] Oct, [facility] [address] [id number] [address] [place] [address], [place] [address] Oct, [facility] [address] [id number] [address] [place] [address], [place] [address] Oct, [facility] [address] [id number] [address] [place] [address], [place] [address] Oct, [facility] [address] [id number] [address] [place] [address], [place] [address] Oct, [facility] [address] [id number] [address] [place] [address], [place] [address] Oct, [facility] [address] [id number] [address] [place] [address], [place] [address] Oct, [facility] [address] [id number] [address] [place] [address], [place] [address] 17 Oct, 2013 [facility] [address] [id number] [address] [place] [address], [place] [address] 14 Oct, 2013 [facility] [address] [id number] [address] [place] [address], [place] [address] 14 Oct, 2013 [facility] [address] [id number] [address] [place] [address], [place] [address] Oct, [facility] [address] [id number] [address] [place] [address], [place] [address] Oct, [facility] [address] [id number] [address] [place] [address], [place] [address] Oct, [facility] [address] [id number] [address] [place] [address], [place] [address] Sep, [facility] [address] [id number] [address] [place] [address], [place] [address] Sep, [facility] [address] [id number] [address] [place] [address], [place] [address] 15 Sep, 2013 [facility] [address] [id number] [address] [place] [address], [place] [address] 15 Sep, 2013 [facility] [address] [id number] [address] [place] [address], [place] [address] Sep, [facility] [address] [id number] [address] [place] [address], [place] [address] Sep, [facility] [address] [id number] [address] [place] [address], [place] [address] Sep, [facility] [address] [id number] [address] [place] [address], [place] [address] Sep, [facility] [address] [id number] [address] [place] [address], [place] [address] Sep, [facility] [address] [id number] [address] [place] [address], [place] [address] Sep, [facility] [address] [id number] [address] [place] [address], [place] [address] Sep, [facility] [address] [id number] [address] [place] [address], [place] [address] Sep, [facility] [address] [id number] [address] [place] [address], [place] [address] Sep, [facility] [address] [id number] [address] [place] [address], [place] [address] Aug, [facility] [address] [id number] [address] [place] [address], [place] [address] Aug, [facility] [address] [id number] [address] [place] [address], [place] [address] Aug, [facility] [address] [id number] [address] [place] [address], [place] [address] Aug, [facility] [address] [id number] [address] [place] [address], [place] [address] Aug, [facility] [address] [id number] [address] [place] [address], [place] [address] 17 Aug, 2013 [facility] [address] [id number] [address] [place] [address], [place] [address] 16 Aug, 2013 [facility] [address] [id number] [address] [place] [address], [place] [address] Aug, [facility] [address] [id number] [address] [place] [address], [place] [address] 12 Aug, 2013 [facility] [address] [id number] [address] [place] [address], [place] [address] Aug, [facility] [address] [id number] [address] [place] [address], [place] [address] 10 Aug, 2013 [facility] [address] [id number] [address] [place] [address], [place] [address] 10 Aug, 2013 [facility] [address] [id number] [address] [place] [address], [place] [address] 02 Aug, 2013 [facility] [address] [id number] [address] [place] [address], [place] [address] 02 Aug, 2013 [facility] [address] [id number] [address] [place] [address], [place] [address] 19 Jul, 2013 [facility] [address] [id number] [address] [place] [address], [place] [address] 19 Jul, 2013 [facility] [address] [id number] [address] [place] [address], [place] [address] 18 Jul, 2013 [facility] [address] [id number] [address] [place] [address], [place] [address] 18 Jul, 2013 [facility] [address] [id number] [address] [place] [address], [place] [address] 14 Jul, 2013 [facility] [address] [id number] [address] [place] [address], [place] [address] 14 Jul, 2013 [facility] [address] [id number] [address] [place] [address], [place] [address] 14 Jul, 2013 [facility] [address] [id number] [address] [place] [address], [place] [address] 14 Jul, 2013 [facility] [address] [id number] [address] [place] [address], [place] [address] 07 Jul, 2013 [facility] [address] [id number] [address] [place] [address], [place] [address] 07 Jul, 2013 [facility] [address] [id number] [address] [place] [address], [place] [address] 06 Jul, 2013 [facility] [address] [id number] [address] [place] [address] 06 Jul, 2013 [facility] [address] [id number] [address] [place] [address], [place] [address] 05 Jul, 2013 [facility] [address] [id number] [address] [place] [address], [place] [address] 05 Jul, 2013 [facility] [address] [id number] [address] [place] [address], [place] [address] 23 Jun, 2013 [facility] [address] [id number] [address] [place] [address], [place] [address] 23 Jun, 2013 [facility] [address] [id number] [address] [place] [address], [place] [address] 15 Jun, 2013 [facility] [address] [id number] [address] [place] [address], [place] [address] 15 Jun, 2013 [facility] [address] [id number] [address] [place] [address], [place] [address] 14 Jun, 2013 [facility] [address] [id number] [address] [place] [address], [place] [address] 24 May, 2013 [facility] [address] [id number] [address] [place] [address], [place] [address] 20 May, 2013 [facility] [address] [id number] [address] [place] [address], [place] [address] 20 May, 2012 [facility] [address] [id number] [address] [place] [address], [place] [address] 20 May, 2012 [facility] [address] [id number] [address] [place] [address], [place] [address] 19 Sep, 2012 [facility] [address] [id number] [address] [place] [address], [place] [address] 13 May, 2012 [facility] [address] [id number] [address] [place] [address], [place] [address] 12 May, 2012 [facility] [address] [id number] [address] [place] [address], [place] [address] 12 May, 2012 [facility] [address] [id number] [address] [place] [address], [place] [address] 11 May, 2012 [facility] [address] [id number] [address] [place] [address], [place] [address] 11 May, 2012 [facility] [address] [id number] [address] [place] [address], [place] [address] 11 May, 2012 [facility] [address] [id number] [address] [place] [address], [place] [address] 09 May, 2012 [facility] [address] [id number] [address] [place] [address], [place] [address] 05 May, 2012 [facility] [address] [id number] [address] [place] [address], [place] [address] 04 May, 2012 [facility] [address] [id number] [address] [place] [address], [place] [address] 03 May, 2012 [facility] [address] [id number] [address] [place] [address], [place] [address] Apr, [facility] [address] [id number] [address] [place] [address], [place] [address] Apr, [facility] [address] [id number] [address] [place] [address], [place] [address] Apr, [facility] [address] [id number] [address] [place] [address], [place] [address] Apr, [facility] [address] [id number] [address] [place] [address], [place] [address] Apr, [facility] [address] [id number] [address] [place] [address], [place] [address] Apr, [facility] [address] [id number] [address] [place] [address], [place] [address] Apr, [facility] [address] [id number] [address] [place] [address], [place] [address] Apr, [facility] [address] [id number] [address] [place] [address], [place] [address] Apr, [facility] [address] [id number] [facility] [place] [address] Mar, [facility] [address] [id number] [address] [place] [address], [place] [address] Mar, [facility] [address] [id number] [address] [place] [address], [place] [address] Mar, [facility] [address] [id number] [address] [place] [address], [place] [address] Mar, [facility] [address] [id number] [address] [place] [address], [place] [address] Mar, [facility] [address] [id number] [address] [place] [address], [place] [address] Mar, [facility] [address] [id number] [address] [place] [address], [place] [address] Mar, [facility] [address] [id number] [address] [place] [address], [place] [address] Mar, [facility] [address] [id number] [address] [place] [address], [place] [address] Mar, [facility] [address] [id number] [address] [place] [address], [place] [address] Mar, [facility] [address] [id number] [address] [place] [address], [place] [address] Mar, [facility] [address] [id number] [address] [place] [address], [place] [address] Feb, [facility] [address] [id number] [address] [place] [address], [place] [address] Feb, [facility] [address] [id number] [address] [place] [address], [place] [address] Feb, [facility] [address] [id number] [address] [place] [address], [place] [address] Feb, [facility] [address] [id number] [address] [place] [address], [place] [address] Feb, [facility] [address] [id number] [address] [place] [address], [place] [address] Feb, [facility] [address] [id number] [address] [place] [address], [place] [address] Feb, [facility] [address] [id number] [address] [place] [address], [place] [address] Feb, [facility] [address] [id number] [address] [place] [address], [place] [address] Feb, [facility] [address] [id number] [address] [place] [address], [place] [address] January, [facility] [address] [id number] [address] [place] [address], [place] [address] January, [facility] [address] [id number] [address] [place] [address], [place] [address] January, [facility] [address] [id number] [address] [place] [address], [place] [address] January, [facility] [address] [id number] [address] [place] [address], [place] [address] January, [facility] [address] [id number] [address] [place] [address], [place] [address] January, [facility] [address] [id number] [address] [place] [address], [place] [address] January, [facility] [address] [id number] [address] [place] [address], [place] [address] January, [facility] [address] [id number] [address] [place] [address], [place] [address] January, [facility] [address] [id number] [address] [place] [address], [place] [address] January, [facility] [address] [id number] [address] [place] [address], [place] [address] January, [facility] [address] [id number] [address] [place] [address], [place] [address] January, [facility] [address] [id number] [address] [place] [address], [place] [address] January, [facility] [address] [id number] [address] [place] [address], [place] [address] January, [facility] [address] [id number] [address] [place] [address], [place] [address] January, [facility] [address] [id number] [address] [place] [address], [place] [address] January, [facility] [address] [id number] [address] [place] [address], [place] [address] January, [facility] [address] [id number] [address] [place] [address], [place] [address] January, [facility] [address] [id number] [address] [place] [address], [place] [address] January, [facility] [address] [id number] [address] [place] [address], [place] [address] January, [facility] [address] [id number] [address] [place] [address], [place] [address] January, [facility] [address] [id number] [address] [place] [address], [place] [address] January, [facility] [address] [id number] [address] [place] [address], [place] [address] January, [facility] [address] [id number] [address] [place] [address], [place] [address] Dec, [facility] [address] [id number] [address] [place] [address], [place] [address] Dec, [facility] [address] [id number] [address] [place] [address], [place] [address] Dec, [facility] [address] [id number] [address] [place] [address], [place] [address] Dec, [facility] [address] [id number] [address] [place] [address], [place] [address] Dec, [facility] [address] [id number] [address] [place] [address], [place] [address] Nov, [facility] [address] [id number] [address] [place] [address], [place] [address] Oct, [facility] [address] [id number] [address] [place] [address], [place] [address] Oct, [facility] [address] [id number] [address] [place] [address], [place] [address] Oct, [facility] [address] [id number] [address] [place] [address], [place] [address] Oct, [facility] [address] [id number] [address] [place] [address], [place] [address] Oct, [facility] [address] [id number] [address] [place] [address], [place] [address] Sep, [facility] [address] [id number] [address] [place] [address], [place] [address] Sep, [facility] [address] [id number] [address] [place] [address], [place] [address] Sep, [facility] [address] [id number] [address] [place] [address], [place] [address] Aug, [facility] [address] [id number] [address] [place] [address], [place] [address] Aug, [facility] [address] [id number] [address] [place] [address], [place] [address] Aug, [facility] [address] [id number] [address] [place] [address], [place] [address] Aug, [facility] [address] [id number] [address] [place] [address], [place] [address] Jul, [facility] [address] [id number] [address] [place] [id number] Jul, [facility] [address] [id number] [address] [place] [address], [place] [address] Jul, [facility] [address] [id number] [address] [place] [address], [place] [address] Jul, [facility] [address] [id number] [address] [place] [address] Jul, [facility] [address] [id number] [address] [place] [address] Jul, [facility] [address] [id number] [address] [place] [address], [place] [address] Jun, [facility] [address] [id number] [address] [place] [address] Jun, [facility] [address] [id number] [address] [place] [id number] Jun, [facility] [address] [id number] [address] [place] [address] Jun, [facility] [address] [id number] [address] [place] [address] Jun, [facility] [address] [id number] [address] [place] [address] Jun, [facility] [address] [id number] [address] [place] [address] Jun, [facility] [address] [id number] [address] [place] [address] Jun, [facility] [address] [id number] [address] [place] [address] Jun, [facility] [address] [id number] [address] [place] [address] Jun, [facility] [address] [id number] [address] [place] [address], [place] [address] May, [facility] [address] [id number] [address] [place] [address], [place] [address] 08 May, 2012 [facility] [address] [id number] [address] [place] [address], [place] [address] May, [facility] [address] [id number] [address] [place] [address], [place] [address] Apr, [facility] [address] [id number] [address] [place] [address], [place] [address] Apr, [facility] [address] [id number] [address] [place] [address], [place] [address] Apr, [facility] [facility] [address] [id number] [address] [place] [address], [place] [address] Apr, [facility] [address] [id number] [address] [place] [address], [place] [address] Apr, [facility] [address] [id number] [address] [place] [address], [place] [address] Apr, [facility] [address] [id number] [address] [place] [address], [place] [address] Apr, [facility] [address] [id number] [address] [place] [address], [place] [address] Apr, [facility] [address] [id number] [address] [place] [address], [place] [address] Apr, [facility] [address] [id number] [address] [place] [address], [place] [address] Mar, [facility] [address] [id number] [address] [place] [address], [place] [address] Mar, [facility] [address] [id number] [address] [place] [address], [place] [address] Mar, [facility] [address] [id number] [address] [place] [address], [place] [address] Mar, [facility] [address] [id number] [address] [place] [address], [place] [address] Feb, [facility] [address] [id number] [address] [place] [address], [place] [address] Feb, [facility] [address] [id number] [address] [place] [address], [place] [address] Feb, [facility] [address] [id number] [address] [place] [address], [place] [address] January, [facility] [address] [id number] [address] [place] [address], [place] [address] January, [facility] [address] [id number] [address] [place] [address], [place] [address] January, [facility] [address] [id number] [address] [place] [address], [place] [address] January, [facility] [address] [id number] [address] [place] [address], [place] [address] January, [facility] [address] [id number] [address] [place] [address], [place] [address] Dec, [facility] [address] [id number] [address] [place] [address], [place] [address] Dec, [facility] [address] [id number] [address] [place] [address], [place] [address] Dec, [facility] [address] [id number] [address] [place] [address], [place] [address] Oct, [facility] [address] [id number] [address] [place] [address], [place] [address] Oct, [facility] [address] [id number] [address] [place] [address], [place] [address] Oct, [facility] [address] [id number] [address] [place] [address], [place] [address] Sep, [facility] [address] [id number] [address] [place] [address], [place] [address] Sep, [facility] [address] [id number] [address] [place] [address], [place] [address] 07 Aug, 2011 [facility] [address] [id number] [address] [place] [address], [place] [address] 08 Jul, 2011 [facility] [address] [id number] [address] [place] [address], [place] [address] 08 Jul, 2011 [facility] [address] [id number] [address] [place] [address], [place] [address] Mar, [facility] [address] [id number] [address] [place] [address], [place] [address] Aug, [facility] [address] [id number] [address] [place] [address], [place] [address] 10 Jul, 2010 [facility] [address] [id number] [address] [place] [address], [place] [address] Jul, [facility] [address] [id number] [address] [place] [address], [place] [address] Jul, [facility] [address] [id number] [address] [place] [address], [place] [address] Jul, [facility] [address] [id number] [address] [place] [address], [place] [address] 14 Jun, 2010 [facility] [address] [id number] [address] [place] [address], [place] [address] Jun, [facility] [address] [id number] [address] [place] [address], [place] [address] Apr, [facility] [address] [id number] [address] [place] [address], [place] [address] Aug, [facility] [address] [id number] [address] [place] [address], [place] [address] 17 Jul, 2009 [facility] [address] [id number] [address] [place] [address], [place] [address] 17 Jul, 2009 [facility] [address] [id number] [address] [place] [address], [place] [address] 13 Jul, 2009 [facility] [address] [facility] [id number] [address] [place] [phone] Jun, [facility] [address] [facility] [id number] [address] [place] [phone] May, [facility] [address] [facility] [id number] [address] [place] [phone] Dec, [facility] [address] [facility] [id number] [address] [place] [address] Nov, [facility] [address] [facility] [id number] [address] [place] [address] Oct, [facility] [address] [facility] [id number] [address] [place] [phone] Aug, [facility] [address] [facility] [id number] [address] [place] [address] Aug, [facility] [address] [facility] [id number] [address] [place] [address] Jun, IMMUNIZATIONS No Known Immunizations SOCIAL HISTORY [...] x 3 day s 04/2012 Hospitalization History [facility] [place]- Right wrist injury 03/29/2018
--- OUTSIDE RECORDS SUMMARY | 2020-04-09 00:19 | XMS REPORT ---
Author Author Kateryna Turner Doctor Organization [facility] Address Unknown Phone Unavailable Care Team Providers Care Practice Representative Name Role Phone Migration, Doctor Unavailable Unavailable PROBLEMS Type Condition ICD9-CM Code QUC22-SC Code Onset Dates Condition S tatus SNOMED Code Problem Irregular menses N92.6 Active 801 26784 Problem Migraine with aura and without status migrainosu s, not intractable G43.109 Active 1417332 Problem Uncontrolled type 2 diabetes mellitus with hyperglycemia E11.65 Active 192533940 Problem Morbid obesity due to excess calories E66.01 Active 403132735 Problem RLS (restless legs syndrome) G25.81 A ctive 30177041 Problem Morbid obesity E66.01 Active 95171 6002 ALLERGIES No Information ENCOUNTERS Encounter Location Date Diagnosis [facility] [address] [facility] [id number] [address] [place] [id number] 28 Nov, 2019 [facility] [address] [facility] [id number] [address] [place] [id number] 03 Nov, 2019 [facility] [address] [facility] [id number] [address] [place] [id number] 02 Nov, 2019 RLS (restless legs syndrome) G25.81 [facility] [address] [facility] [id number] [address] [place] [address] 15 Oct, 2019 [facility] [address] [facility] [id number] [address] [place] [id number] 09 Oct, 2019 Influenza J11.1 [facility] [address] [facility] [id number] [address] [place] [address] Sep, [facility] [address] [facility] [id number] [address] [place] [address] Sep, [facility] [address] [facility] [id number] [address] [place] [phone] Sep, [facility] [address] [id number] [address] [place] [id number] 13 Sep, 2019 [facility] [address] [id number] [address] [place] [id number] 10 Sep, 2019 Pneumonia of left lower lobe due to infectious organism J18.9 and Migraine with aura and without status migrainosus, not intractable G43.109 [facility] [address] [id number] [address] [place] [address] 10 Sep, 2019 [facility] [address] [id number] [address] [place] [address] Sep, [facility] [address] [id number] [address] [place] [address] Sep, [facility] [address] [id number] [address] [place] [id number] 08 Sep, 2019 [facility] [address] [id number] [address] [place] [address] Sep, Pneumonia of left lower lobe due to infectious organism J18.9 and Migraine with aura and without status migrainosus, not intractable G43.109 [place] [address] [id number] [address] [place] [address] Aug, Irregular menses N92.6 ; Wel l woman exam Z01.419 ; Pelvic cramping R10.2 and Left breast lump N63.20 [place] [address] [id number] [address] [place] [address] Aug, [place] [address] [id number] [address] [place] [address] Aug, Well woman exam Z01.419 ; Le ft breast lump N63.20 ; Irregular menses N92.6 ; Encounter for immunization Z23 ; Pelvic cramping R10.2 and Screening for cervical cancer Z12.4 [place] [address] [id number] [address] [place] [phone] Aug, [place] [address] [facility] [id number] [address] [place] [address] Aug, [facility] [address] [facility] [id number] [address] [place] [address] Aug, [facility] [address] [facility] [id number] [address] [place] [address] Jul, [facility] [address] [facility] [id number] [place] [address] Jun, [facility] [address] [facility] [id number] [address] [place] [address] Jun, [facility] [address] [address] Jun, [facility] [address] [place] [id number] [address] [place] [address] Jun, BMI 50.0-59.9, adult Z68.43 [facility] [address] [place] [id number] [address] [place] [address] Jun, [facility] [address] [place] [id number] [address] [place] [address] May, Acute non-recurrent sinusiti s, unspecified location J01.90 ; Diarrhea, unspecified R19.7 ; Vomiting, unspecified R11.10 and Morbid obesity E66.01 [facility] [address] [place] [id number] [address] [place] [address] Apr, [facility] [address] [place] [id number] [address] [place] [address] Apr, Anemia due to other cause, n ot classified D64.89 and D-dimer, elevated R79.89 [facility] [address] [place] [id number] [address] [place] [address] Apr, [facility] [address] [place] [id number] [address] [place] [address] Apr, [facility] [address] [place] [id number] [address] [place] [address] Mar, Anemia due to other cause, n ot classified D64.89 and D-dimer, elevated R79.89 [place] [address] [place] [id number] [address] [place] [address] Mar, Leg edema, right R60.0 ; Hig h risk medication use Z79.899 and Morbid obesity E66.01 [place] [address] [address] Mar, BMI 50.0-59.9, adult Z68.43 [place] [address] [address] Mar, [place] [address] [address] January, Uncontrolled type 2 diabetes mellitus with hyperglycemia E11.65 ; RLS (restless legs syndrome) G25.81 and Morbid obesity E66.01 [place] [address] [place] [id number] [address] [place] [address] Oct, Lipoma of right lower extrem ity D17.23 [place] [address] [place] [id number] [place] [address] Oct, Lipoma of right lower extrem ity D17.23 [place] [address] [place] [id number] [address] [place] [address] Sep, [place] [address] [place] [id number] [address] [place] [address] Sep, [place] [address] [place] [id number] [address] [place] [address] Sep, [place] [address] [place] [id number] [address] [place] [address] Sep, [place] [address] [place] [id number] [address] [place] [address] Sep, [place] [address] [id number] [address] [place] [address] Aug, Uncontrolled type 2 diabetes mellitus with hyperglycemia E11.65 ; Morbid obesity due to excess calories E66.01 ; Lipoma of torso D17.1 and BMI 50.0-59.9, adult Z68.43 [facility] [address] [id number] [address] [place] [address] Jun, Encounter for immunization Z 23 [facility] [address] [id number] [address] [place] [phone] Jul, [facility] [address] [id number] [address] [place] [address] Jun, Encounter for immunization Z 23 [facility] [address] [id number] [address] [place] [phone] 30 May, 2016 [facility] [address] [id number] [address] [place] [address] Jun, Encounter for immunization Z 23 [facility] [address] [id number] [address] [place] [address] May, [facility] [address] [id number] [address] [place] [address] May, [facility] [address] [id number] [address] [place] [phone] Apr, [facility] [address] [id number] [address] [place] [id number] Feb, [facility] [address] [id number] [address] [place] [address] Feb, [facility] [address] [id number] [address] [place] [phone] Feb, [facility] [address] [id number] [address] [place] [phone] January, [facility] [address] [facility] [id number] [address] [place] [phone] January, [facility] [address] [id number] [address] [place] [address], [place] [address] Dec, [facility] [address] [id number] [address] [place] [address], [place] [address] Dec, [facility] [address] [id number] [address] [place] [address], [place] [address] Nov, [facility] [address] [id number] [address] [place] [address], [place] [address] Nov, [facility] [address] [id number] [address] [place] [address], [place] [address] Nov, [facility] [address] [id number] [address] [place] [address], [place] [address] Nov, [facility] [address] [id number] [address] [place] [address], [place] [address] Nov, [facility] [address] [id number] [address] [place] [address], [place] [address] Nov, [facility] [address] [id number] [address] [place] [address], [place] [address] Nov, [facility] [address] [id number] [address] [place] [address], [place] [address] Oct, [facility] [address] [id number] [address] [place] [address], [place] [address] Oct, [facility] [address] [id number] [address] [place] [address], [place] [address] Oct, [facility] [address] [id number] [address] [place] [address], [place] [address] Oct, [facility] [address] [id number] [address] [place] [address], [place] [address] Oct, [facility] [address] [id number] [address] [place] [address], [place] [address] Sep, [facility] [address] [id number] [address] [place] [address], [place] [address] 31 Sep, 2014 [facility] [address] [id number] [address] [place] [address], [place] [address] Sep, [facility] [address] [id number] [address] [place] [address], [place] [address] Sep, [facility] [address] [id number] [address] [place] [address], [place] [address] Sep, [facility] [address] [id number] [address] [place] [address], [place] [address] Sep, [facility] [address] [id number] [address] [place] [address], [place] [address] Sep, [facility] [address] [id number] [address] [place] [address], [place] [address] Sep, [facility] [address] [id number] [address] [place] [address], [place] [address] Sep, [facility] [address] [id number] [address] [place] [address], [place] [address] Sep, [facility] [address] [id number] [address] [place] [address], [place] [address] Aug, [facility] [address] [id number] [address] [place] [address], [place] [address] Aug, [facility] [address] [id number] [address] [place] [address], [place] [address] Aug, [facility] [address] [id number] [address] [place] [address], [place] [address] Aug, [facility] [address] [id number] [address] [place] [address], [place] [address] Aug, [facility] [address] [id number] [address] [place] [address], [place] [address] 29 Aug, 2014 [facility] [address] [id number] [address] [place] [address], [place] [address] Aug, [facility] [address] [id number] [address] [place] [address], [place] [address] Aug, [facility] [address] [id number] [address] [place] [address], [place] [address] Aug, [facility] [address] [id number] [address] [place] [address], [place] [address] Aug, [facility] [address] [id number] [address] [place] [address], [place] [address] Aug, [facility] [address] [id number] [address] [place] [address], [place] [address] Aug, [facility] [address] [id number] [address] [place] [address], [place] [address] Aug, [facility] [address] [id number] [address] [place] [address], [place] [address] Aug, [facility] [address] [id number] [address] [place] [address], [place] [address] Aug, [facility] [address] [id number] [address] [place] [address], [place] [address] Aug, [facility] [address] [id number] [address] [place] [address], [place] [address] Aug, [facility] [address] [id number] [address] [place] [address], [place] [address] Aug, [facility] [address] [id number] [address] [place] [address], [place] [address] Aug, [facility] [address] [id number] [address] [place] [address], [place] [address] Aug, [facility] [address] [id number] [address] [place] [address], [place] [address] Aug, [facility] [address] [id number] [address] [place] [address], [place] [address] Aug, [facility] [address] [id number] [address] [place] [address], [place] [address] 05 Aug, 2014 [facility] [address] [id number] [address] [place] [address], [place] [address] 05 Aug, 2014 [facility] [address] [id number] [address] [place] [address], [place] [address] Jul, [facility] [address] [id number] [address] [place] [address], [place] [address] Jul, [facility] [address] [id number] [address] [place] [address] 27 Jun, 2014 [facility] [address] [id number] [address] [place] [address], [place] [address] 27 Jun, 2014 [facility] [address] [id number] [address] [place] [address], [place] [address] 17 Jun, 2014 [facility] [address] [id number] [address] [place] [address], [place] [address] 17 Jun, 2014 [facility] [address] [id number] [address] [place] [address], [place] [address] 15 Jun, 2014 [facility] [address] [id number] [address] [place] [address], [place] [address] 15 Jun, 2014 [facility] [address] [id number] [address] [place] [address], [place] [address] 14 Jun, 2014 [facility] [address] [id number] [address] [place] [address] 14 Jun, 2014 [facility] [address] [id number] [address] [place] [address] 13 Jun, 2014 [facility] [address] [id number] [address] [place] [address], [place] [address] 13 Jun, 2014 [facility] [address] [id number] [address] [place] [address], [place] [address] 13 Jun, 2014 [facility] [address] [id number] [address] [place] [address], [place] [address] 13 Jun, 2014 [facility] [address] [id number] [facility] [address] Jun, [facility] [address] [id number] [address] [place] [address], [place] [address] Jun, [facility] [address] [id number] [address] [place] [address], [place] [address] May, 2013 [facility] [address] [id number] [address] [place] [address], [place] [address] May, 2013 [facility] [address] [id number] [address] [place] [address], [place] [address] May, 2013 [facility] [address] [id number] [address] [place] [address], [place] [address] May, 2013 [facility] [address] [id number] [address] [place] [address], [place] [address] May, 2013 [facility] [address] [id number] [address] [place] [address], [place] [address] May, 2013 [facility] [address] [id number] [address] [place] [address], [place] [address] May, [facility] [address] [id number] [address] [place] [address], [place] [address] May, [facility] [address] [id number] [address] [place] [address], [place] [address] Apr, [facility] [address] [id number] [address] [place] [address], [place] [address] Apr, [facility] [address] [id number] [address] [place] [address], [place] [address] Apr, [facility] [address] [id number] [address] [place] [address], [place] [address] Apr, [facility] [address] [id number] [address] [place] [address], [place] [address] Apr, [facility] [address] [id number] [address] [place] [address], [place] [address] Apr, [facility] [address] [id number] [facility] [address] Apr, [facility] [address] [id number] [address] [place] [address], [place] [address] Apr, [facility] [address] [id number] [address] [place] [address], [place] [address] Apr, [facility] [address] [id number] [address] [place] [address], [place] [address] Mar, [facility] [address] [id number] [address] [place] [address], [place] [address] Mar, [facility] [address] [id number] [address] [place] [address], [place] [address] Mar, [facility] [address] [id number] [address] [place] [address], [place] [address] Feb, [facility] [address] [id number] [address] [place] [address], [place] [address] Feb, [facility] [address] [id number] [address] [place] [address], [place] [address] Feb, [facility] [address] [id number] [address] [place] [address], [place] [address] Feb, [facility] [address] [id number] [address] [place] [address], [place] [address] Feb, [facility] [address] [id number] [address] [place] [address], [place] [address] 17 Feb, 2014 [facility] [address] [id number] [address] [place] [address], [place] [address] Feb, [facility] [address] [id number] [address] [place] [address], [place] [address] Feb, [facility] [address] [id number] [address] [place] [address], [place] [address] 16 Feb, 2014 [facility] [address] [id number] [address] [place] [address], [place] [address] Feb, [facility] [address] [id number] [address] [place] [address] Feb, [facility] [address] [id number] [address] [place] [address] Feb, [facility] [address] [id number] [address] [place] [address], [place] [address] Feb, [facility] [address] [id number] [address] [place] [address], [place] [address] Feb, [facility] [address] [id number] [address] [place] [address], [place] [address] Feb, [facility] [address] [id number] [address] [place] [address], [place] [address] Feb, [facility] [address] [id number] [address] [place] [address], [place] [address] January, [facility] [address] [id number] [address] [place] [address], [place] [address] January, [facility] [address] [id number] [address] [place] [address], [place] [address] January, [facility] [address] [id number] [address] [place] [address], [place] [address] January, [facility] [address] [id number] [address] [place] [address], [place] [address] January, [facility] [address] [id number] [address] [place] [address], [place] [address] January, [facility] [address] [id number] [address] [place] [address], [place] [address] January, [facility] [address] [id number] [address] [place] [address], [place] [address] January, [facility] [address] [id number] [address] [place] [address], [place] [address] January, [facility] [address] [id number] [address] [place] [address] January, [facility] [address] [id number] [address] [address] January, [facility] [address] [id number] [address] [address] January, [facility] [address] [id number] [address] [place] [address], [place] [address] January, [facility] [address] [id number] [address] [address] January, [facility] [address] [id number] [address] [place] [address], [place] [address] January, [facility] [address] [id number] [address] [place] [address], [place] [address] January, [facility] [address] [id number] [address] [place] [address], [place] [address] January, [facility] [address] [id number] [address] [place] [address], [place] [address] January, [facility] [address] [id number] [address] [place] [address], [place] [address] January, [facility] [address] [id number] [address] [place] [address], [place] [address] January, [facility] [address] [id number] [address] [place] [address], [place] [address] January, [facility] [address] [id number] [address] [place] [address], [place] [address] January, [facility] [address] [id number] [address] [place] [address], [place] [address] January, [facility] [address] [id number] [address] [place] [address], [place] [address] January, [facility] [address] [id number] [address] [place] [address], [place] [address] January, [facility] [address] [id number] [address] [address] January, [facility] [address] [id number] [address] [address] Dec, [facility] [address] [id number] [address] [place] [address], [place] [address] Dec, [facility] [address] [id number] [address] [place] [address], [place] [address] Dec, [facility] [address] [id number] [address] [place] [address], [place] [address] Dec, [facility] [address] [id number] [address] [place] [address], [place] [address] Dec, [facility] [address] [id number] [address] [place] [address], [place] [address] Dec, [facility] [address] [id number] [address] [place] [address], [place] [address] Dec, [facility] [address] [id number] [address] [place] [address], [place] [address] Dec, [facility] [address] [id number] [address] [place] [address], [place] [address] Dec, [facility] [address] [id number] [address] [place] [address], [place] [address] Dec, [facility] [address] [id number] [address] [place] [address], [place] [address] Dec, [facility] [address] [id number] [address] [place] [address], [place] [address] Dec, [facility] [address] [id number] [address] [place] [address], [place] [address] Dec, [facility] [address] [id number] [address] [place] [address], [place] [address] Dec, [facility] [address] [id number] [facility] [place] [address] Dec, [facility] [address] [id number] [address] [place] [address], [place] [address] Dec, [facility] [address] [id number] [address] [place] [address], [place] [address] Dec, [facility] [address] [id number] [address] [place] [address], [place] [address] Dec, [facility] [address] [id number] [address] [place] [address], [place] [address] Dec, [facility] [address] [id number] [address] [place] [address], [place] [address] Dec, [facility] [address] [id number] [address] [place] [address], [place] [address] Dec, [facility] [address] [id number] [address] [place] [address], [place] [address] Dec, [facility] [address] [id number] [address] [place] [address], [place] [address] Nov, [facility] [address] [id number] [address] [place] [address], [place] [address] Nov, [facility] [address] [id number] [address] [place] [address], [place] [address] Nov, [facility] [address] [id number] [address] [place] [address], [place] [address] Nov, [facility] [address] [id number] [address] [place] [address], [place] [address] Nov, [facility] [address] [id number] [address] [place] [address], [place] [address] Nov, [facility] [address] [id number] [address] [place] [address], [place] [address] Nov, [facility] [address] [id number] [address] [place] [address], [place] [address] Nov, [facility] [address] [id number] [facility] [address] Nov, [facility] [address] [id number] [address] [place] [address], [place] [address] Nov, [facility] [address] [id number] [address] [place] [address], [place] [address] 18 Nov, 2013 [facility] [address] [id number] [address] [place] [address], [place] [address] Nov, [facility] [address] [id number] [address] [place] [address], [place] [address] Nov, [facility] [address] [id number] [address] [place] [address], [place] [address] Nov, [facility] [address] [id number] [address] [place] [address], [place] [address] Nov, [facility] [address] [id number] [address] [place] [address], [place] [address] Nov, [facility] [address] [id number] [address] [place] [address], [place] [address] Oct, [facility] [address] [id number] [address] [place] [address], [place] [address] Oct, [facility] [address] [id number] [address] [place] [address], [place] [address] Oct, [facility] [address] [id number] [address] [place] [address], [place] [address] Oct, [facility] [address] [id number] [address] [place] [address], [place] [address] Oct, [facility] [address] [id number] [address] [place] [address], [place] [address] Oct, [facility] [address] [id number] [address] [place] [address], [place] [address] Oct, [facility] [address] [id number] [address] [place] [address], [place] [address] Oct, [facility] [address] [id number] [address] [place] [address], [place] [address] Oct, [facility] [address] [id number] [address] [place] [address], [place] [address] 17 Oct, 2013 [facility] [address] [id number] [address] [place] [address], [place] [address] 14 Oct, 2013 [facility] [address] [id number] [address] [place] [address], [place] [address] 14 Oct, 2013 [facility] [address] [id number] [address] [place] [address], [place] [address] Oct, [facility] [address] [id number] [address] [place] [address], [place] [address] Oct, [facility] [address] [id number] [address] [place] [address], [place] [address] Oct, [facility] [address] [id number] [address] [place] [address], [place] [address] Sep, [facility] [address] [id number] [address] [place] [address], [place] [address] Sep, [facility] [address] [id number] [address] [place] [address], [place] [address] 15 Sep, 2013 [facility] [address] [id number] [address] [place] [address], [place] [address] 15 Sep, 2013 [facility] [address] [id number] [address] [place] [address], [place] [address] Sep, [facility] [address] [id number] [address] [place] [address], [place] [address] Sep, [facility] [address] [id number] [address] [place] [address], [place] [address] Sep, [facility] [address] [id number] [address] [place] [address], [place] [address] Sep, [facility] [address] [id number] [address] [place] [address], [place] [address] Sep, [facility] [address] [id number] [address] [place] [address], [place] [address] Sep, [facility] [address] [id number] [address] [place] [address], [place] [address] Sep, [facility] [address] [id number] [address] [place] [address], [place] [address] Sep, [facility] [address] [id number] [address] [place] [address], [place] [address] Sep, [facility] [address] [id number] [address] [place] [address], [place] [address] Aug, [facility] [address] [id number] [address] [place] [address], [place] [address] Aug, [facility] [address] [id number] [address] [place] [address], [place] [address] Aug, [facility] [address] [id number] [address] [place] [address], [place] [address] Aug, [facility] [address] [id number] [address] [place] [address], [place] [address] Aug, [facility] [address] [id number] [address] [place] [address], [place] [address] 17 Aug, 2013 [facility] [address] [id number] [address] [place] [address], [place] [address] 16 Aug, 2013 [facility] [address] [id number] [address] [place] [address], [place] [address] Aug, [facility] [address] [id number] [address] [place] [address], [place] [address] 12 Aug, 2013 [facility] [address] [id number] [address] [place] [address], [place] [address] Aug, [facility] [address] [id number] [address] [place] [address], [place] [address] 10 Aug, 2013 [facility] [address] [id number] [address] [place] [address], [place] [address] 10 Aug, 2013 [facility] [address] [id number] [address] [place] [address], [place] [address] 02 Aug, 2013 [facility] [address] [id number] [address] [place] [address], [place] [address] 02 Aug, 2013 [facility] [address] [id number] [address] [place] [address], [place] [address] 19 Jul, 2013 [facility] [address] [id number] [address] [place] [address], [place] [address] 19 Jul, 2013 [facility] [address] [id number] [address] [place] [address], [place] [address] 18 Jul, 2013 [facility] [address] [id number] [address] [place] [address], [place] [address] 18 Jul, 2013 [facility] [address] [id number] [address] [place] [address], [place] [address] 14 Jul, 2013 [facility] [address] [id number] [address] [place] [address], [place] [address] 14 Jul, 2013 [facility] [address] [id number] [address] [place] [address], [place] [address] 14 Jul, 2013 [facility] [address] [id number] [address] [place] [address], [place] [address] 14 Jul, 2013 [facility] [address] [id number] [address] [place] [address], [place] [address] 07 Jul, 2013 [facility] [address] [id number] [address] [place] [address], [place] [address] 07 Jul, 2013 [facility] [address] [id number] [address] [place] [address], [place] [address] 06 Jul, 2013 [facility] [address] [id number] [address] [place] [address] 06 Jul, 2013 [facility] [address] [id number] [address] [place] [address], [place] [address] 05 Jul, 2013 [facility] [address] [id number] [address] [place] [address], [place] [address] 05 Jul, 2013 [facility] [address] [id number] [address] [place] [address], [place] [address] 23 Jun, 2013 [facility] [address] [id number] [address] [place] [address], [place] [address] 23 Jun, 2013 [facility] [address] [id number] [address] [place] [address], [place] [address] 15 Jun, 2013 [facility] [address] [id number] [address] [place] [address], [place] [address] 15 Jun, 2013 [facility] [address] [id number] [address] [place] [address], [place] [address] 14 Jun, 2013 [facility] [address] [id number] [address] [place] [address], [place] [address] 24 May, 2013 [facility] [address] [id number] [address] [place] [address], [place] [address] 20 May, 2013 [facility] [address] [id number] [address] [place] [address], [place] [address] 20 May, 2012 [facility] [address] [id number] [address] [place] [address], [place] [address] 20 May, 2012 [facility] [address] [id number] [address] [place] [address], [place] [address] 19 Sep, 2012 [facility] [address] [id number] [address] [place] [address], [place] [address] 13 May, 2012 [facility] [address] [id number] [address] [place] [address], [place] [address] 12 May, 2012 [facility] [address] [id number] [address] [place] [address], [place] [address] 12 May, 2012 [facility] [address] [id number] [address] [place] [address], [place] [address] 11 May, 2012 [facility] [address] [id number] [address] [place] [address], [place] [address] 11 May, 2012 [facility] [address] [id number] [address] [place] [address], [place] [address] 11 May, 2012 [facility] [address] [id number] [address] [place] [address], [place] [address] 09 May, 2012 [facility] [address] [id number] [address] [place] [address], [place] [address] 05 May, 2012 [facility] [address] [id number] [address] [place] [address], [place] [address] 04 May, 2012 [facility] [address] [id number] [address] [place] [address], [place] [address] 03 May, 2012 [facility] [address] [id number] [address] [place] [address], [place] [address] Apr, [facility] [address] [id number] [address] [place] [address], [place] [address] Apr, [facility] [address] [id number] [address] [place] [address], [place] [address] Apr, [facility] [address] [id number] [address] [place] [address], [place] [address] Apr, [facility] [address] [id number] [address] [place] [address], [place] [address] Apr, [facility] [address] [id number] [address] [place] [address], [place] [address] Apr, [facility] [address] [id number] [address] [place] [address], [place] [address] Apr, [facility] [address] [id number] [address] [place] [address], [place] [address] Apr, [facility] [address] [id number] [address] [place] [address], [place] [address] Apr, [facility] [address] [id number] [facility] [place] [address] Mar, [facility] [address] [id number] [address] [place] [address], [place] [address] Mar, [facility] [address] [id number] [address] [place] [address], [place] [address] Mar, [facility] [address] [id number] [address] [place] [address], [place] [address] Mar, [facility] [address] [id number] [address] [place] [address], [place] [address] Mar, [facility] [address] [id number] [address] [place] [address], [place] [address] Mar, [facility] [address] [id number] [address] [place] [address], [place] [address] Mar, [facility] [address] [id number] [address] [place] [address], [place] [address] Mar, [facility] [address] [id number] [address] [place] [address], [place] [address] Mar, [facility] [address] [id number] [address] [place] [address], [place] [address] Mar, [facility] [address] [id number] [address] [place] [address], [place] [address] Mar, [facility] [address] [id number] [address] [place] [address], [place] [address] Feb, [facility] [address] [id number] [address] [place] [address], [place] [address] Feb, [facility] [address] [id number] [address] [place] [address], [place] [address] Feb, [facility] [address] [id number] [address] [place] [address], [place] [address] Feb, [facility] [address] [id number] [address] [place] [address], [place] [address] Feb, [facility] [address] [id number] [address] [place] [address], [place] [address] Feb, [facility] [address] [id number] [address] [place] [address], [place] [address] Feb, [facility] [address] [id number] [address] [place] [address], [place] [address] Feb, [facility] [address] [id number] [address] [place] [address], [place] [address] Feb, [facility] [address] [id number] [address] [place] [address], [place] [address] January, [facility] [address] [id number] [address] [place] [address], [place] [address] January, [facility] [address] [id number] [address] [place] [address], [place] [address] January, [facility] [address] [id number] [address] [place] [address], [place] [address] January, [facility] [address] [id number] [address] [place] [address], [place] [address] January, [facility] [address] [id number] [address] [place] [address], [place] [address] January, [facility] [address] [id number] [address] [place] [address], [place] [address] January, [facility] [address] [id number] [address] [place] [address], [place] [address] January, [facility] [address] [id number] [address] [place] [address], [place] [address] January, [facility] [address] [id number] [address] [place] [address], [place] [address] January, [facility] [address] [id number] [address] [place] [address], [place] [address] January, [facility] [address] [id number] [address] [place] [address], [place] [address] January, [facility] [address] [id number] [address] [place] [address], [place] [address] January, [facility] [address] [id number] [address] [place] [address], [place] [address] January, [facility] [address] [id number] [address] [place] [address], [place] [address] January, [facility] [address] [id number] [address] [place] [address], [place] [address] January, [facility] [address] [id number] [address] [place] [address], [place] [address] January, [facility] [address] [id number] [address] [place] [address], [place] [address] January, [facility] [address] [id number] [address] [place] [address], [place] [address] January, [facility] [address] [id number] [address] [place] [address], [place] [address] January, [facility] [address] [id number] [address] [place] [address], [place] [address] January, [facility] [address] [id number] [address] [place] [address], [place] [address] January, [facility] [address] [id number] [address] [place] [address], [place] [address] January, [facility] [address] [id number] [address] [place] [address], [place] [address] Dec, [facility] [address] [id number] [address] [place] [address], [place] [address] Dec, [facility] [address] [id number] [address] [place] [address], [place] [address] Dec, [facility] [address] [id number] [address] [place] [address], [place] [address] Dec, [facility] [address] [id number] [address] [place] [address], [place] [address] Dec, [facility] [address] [id number] [address] [place] [address], [place] [address] Nov, [facility] [address] [id number] [address] [place] [address], [place] [address] Oct, [facility] [address] [id number] [address] [place] [address], [place] [address] Oct, [facility] [address] [id number] [address] [place] [address], [place] [address] Oct, [facility] [address] [id number] [address] [place] [address], [place] [address] Oct, [facility] [address] [id number] [address] [place] [address], [place] [address] Oct, [facility] [address] [id number] [address] [place] [address], [place] [address] Sep, [facility] [address] [id number] [address] [place] [address], [place] [address] Sep, [facility] [address] [id number] [address] [place] [address], [place] [address] Sep, [facility] [address] [id number] [address] [place] [address], [place] [address] Aug, [facility] [address] [id number] [address] [place] [address], [place] [address] Aug, [facility] [address] [id number] [address] [place] [address], [place] [address] Aug, [facility] [address] [id number] [address] [place] [address], [place] [address] Aug, [facility] [address] [id number] [address] [place] [address], [place] [address] Jul, [facility] [address] [id number] [address] [place] [address] Jul, [facility] [address] [id number] [address] [place] [address], [place] [address] Jul, [facility] [address] [id number] [address] [place] [address], [place] [address] Jul, [facility] [address] [id number] [address] [place] [address] Jul, [facility] [address] [id number] [address] [place] [address] Jul, [facility] [address] [id number] [address] [place] [address], [place] [address] Jun, [facility] [address] [id number] [address] [place] [address] Jun, [facility] [address] [id number] [address] [place] [address] Jun, [facility] [address] [id number] [address] [place] [address] Jun, [facility] [address] [id number] [address] [place] [address] Jun, [facility] [address] [id number] [address] [place] [address] Jun, [facility] [address] [id number] [address] [place] [address] Jun, [facility] [address] [id number] [address] [place] [address] Jun, [facility] [address] [id number] [address] [place] [address] Jun, [facility] [address] [id number] [address] [place] [address] Jun, [facility] [address] [id number] [address] [place] [address], [place] [address] May, [facility] [address] [id number] [address] [place] [address], [place] [address] 08 May, 2012 [facility] [address] [id number] [address] [place] [address], [place] [address] May, [facility] [address] [id number] [address] [place] [address], [place] [address] Apr, [facility] [address] [id number] [address] [place] [address], [place] [address] Apr, [facility] [address] [id number] [address] [place] [address], [place] [address] Apr, [facility] [address] [id number] [address] [place] [address], [place] [address] Apr, [facility] [address] [id number] [address] [place] [address], [place] [id number] Apr, [facility] [address] [id number] [address] [place] [address], [place] [address] Apr, [facility] [address] [id number] [address] [place] [address], [place] [address] Apr, [facility] [address] [id number] [address] [place] [address], [place] [address] Apr, [facility] [address] [id number] [address] [place] [address], [place] [address] Apr, [facility] [address] [id number] [address] [place] [address], [place] [address] Mar, [facility] [address] [id number] [address] [place] [address], [place] [address] Mar, [facility] [address] [id number] [address] [place] [address], [place] [address] Mar, [facility] [address] [id number] [address] [place] [address], [place] [address] Mar, [facility] [address] [id number] [address] [place] [address], [place] [address] Feb, [facility] [address] [id number] [address] [place] [address], [place] [address] Feb, [facility] [address] [id number] [address] [place] [address], [place] [address] Feb, [facility] [address] [id number] [address] [place] [address], [place] [address] January, [facility] [address] [id number] [address] [place] [address], [place] [address] January, [facility] [address] [id number] [address] [place] [address], [place] [address] January, [facility] [address] [id number] [address] [place] [address], [place] [address] January, [facility] [address] [id number] [address] [place] [address], [place] [address] January, [facility] [address] [id number] [address] [place] [address], [place] [address] Dec, [facility] [address] [id number] [address] [place] [address], [place] [address] Dec, [facility] [address] [id number] [address] [place] [address], [place] [address] Dec, [facility] [address] [id number] [address] [place] [address], [place] [address] Oct, [facility] [address] [id number] [address] [place] [address], [place] [address] Oct, [facility] [address] [id number] [address] [place] [address], [place] [address] Oct, [facility] [address] [id number] [address] [place] [address], [place] [address] Sep, [facility] [address] [id number] [address] [place] [address], [place] [address] Sep, [facility] [address] [id number] [address] [place] [address], [place] [address] 07 Aug, 2011 [facility] [address] [id number] [address] [place] [address], [place] [address] 08 Jul, 2011 [facility] [address] [id number] [address] [place] [address], [place] [address] 08 Jul, 2011 [facility] [address] [id number] [address] [place] [address], [place] [address] Mar, [facility] [address] [id number] [address] [place] [address], [place] [address] Aug, [facility] [address] [id number] [address] [place] [address], [place] [address] 10 Jul, 2010 [facility] [address] [id number] [address] [place] [address], [place] [address] Jul, [facility] [address] [id number] [address] [place] [address], [place] [address] Jul, [facility] [address] [id number] [address] [place] [address], [place] [address] Jul, [facility] [address] [id number] [address] [place] [address], [place] [address] 14 Jun, 2010 [facility] [address] [id number] [address] [place] [address], [place] [address] Jun, [facility] [address] [id number] [address] [place] [address], [place] [address] Apr, [facility] [address] [id number] [address] [place] [address], [place] [address] Aug, [facility] [address] [id number] [address] [place] [address], [place] [address] 17 Jul, 2009 [facility] [address] [id number] [address] [place] [address], [place] [address] 17 Jul, 2009 [facility] [address] [id number] [address] [place] [address], [place] [address] 13 Jul, 2009 [facility] [address] [facility] [id number] [address] [place] [id number] Jun, [facility] [address] [facility] [id number] [address] [place] [id number] May, [facility] [address] [facility] [id number] [address] [place] [address] Dec, [facility] [address] [facility] [id number] [address] [place] [id number] Nov, [facility] [address] [facility] [id number] [address] [place] [phone] Oct, [facility] [address] [facility] [id number] [address] [place] [id number] Aug, [facility] [address] [facility] [id number] [address] [place] [id number] Aug, [facility] [address] [facility] [id number] [address] [place] [id number] Jun, IMMUNIZATIONS No Known Immunizations SOCIAL HISTORY [...] x 3 day s 04/2012 Hospitalization History [facility] [place]- Right wrist injury 03/29/2018
--- OUTSIDE RECORDS SUMMARY | 2020-04-09 00:20 | XMS REPORT ---
Author Author Kateryna LOPEZ [facility] Address [address] [place] [address] Care Team Providers Care Steel Tier Name Role Phone JOHN JESSE Unavailable PROBLEMS Type Condition ICD9-CM Code DHD06-GW Code Onset Dates Condition S tatus SNOMED Code Problem Irregular menses N92.6 Active 801 95288 Problem Migraine with aura and without status migrainosu s, not intractable G43.109 Active 0282129 Problem Uncontrolled type 2 diabetes mellitus with hyperglycemia E11.65 Active 932448035 Problem Morbid obesity due to excess calories E66.01 Active 619369831 Problem RLS (restless legs syndrome) G25.81 A ctive 07783901 Problem Morbid obesity E66.01 Active 43325 6002 ALLERGIES No Information ENCOUNTERS Encounter Location Date Diagnosis [facility] [address] [address] Nov, [facility] [address] [address] 02 Nov, 2019 RLS (restless legs syndrome) G25.81 [facility] [id number] [place] [address] 15 Oct, 2019 [facility] [address] [facility] [id number] [place] [address] 09 Oct, 2019 Influenza J11.1 [facility] [address] [id number] [place] [address] Sep, [facility] [address] [address] Sep, [facility] [id number] [place] [address] Sep, [facility] [address] [address] 13 Sep, 2019 [facility] [address] [address] 10 Sep, 2019 Pneumonia of left lower lobe due to infe ctious organism J18.9 and Migraine with aura and without status migrainosus, not intractable G43.109 [facility] [address] [address] 10 Sep, 2019 [facility] [address] [address] 10 Sep, 2019 [facility] [address] [address] 08 Sep, 2019 [place] [address] [address] 08 Sep, 2019 [place] [address] [address] 08 Sep, 2019 Pneumonia of left lower lobe due to infe ctious organism J18.9 and Migraine with aura and without status migrainosus, not intractable G43.109 [place] [address] [address] 31 Aug, 2019 Irregular menses N92.6 ; Well woman exam Z01.419 ; Pelvic cramping R10.2 and Left breast lump N63.20 [place] [address] [address] Aug, [place] [address] [address] Aug, Well woman exam Z01.419 ; Left breast nenita mp N63.20 ; Irregular menses N92.6 ; Encounter for immunization Z23 ; Pelvic cramping R10.2 and Screening for cervical cancer Z12.4 [place] [address] [address] Aug, [place] [address] [address] Aug, [place] [id number] [place] [address] Aug, [facility] [id number] [place] [address] Jul, [facility] [id number] [place] [address] Jun, [facility] [address] [address] Jun, [facility] [address] [address] Jun, [facility] [address] [address] Jun, BMI 50.0-59.9, adult Z68.43 [facility] [id number] [place] [address] Jun, [facility] [address] [facility] [id number] [address] [place] [address] May, Acute non-recurrent sinusiti s, unspecified location J01.90 ; Diarrhea, unspecified R19.7 ; Vomiting, unspecified R11.10 and Morbid obesity E66.01 [facility] [id number] [place] [address] Apr, [facility] [address] [address] Apr, Anemia due to other cause, not classifie d D64.89 and D-dimer, elevated R79.89 [facility] [id number] [place] [address] Apr, [facility] [address] [address] Apr, [facility] [address] [address] Mar, Anemia due to other cause, not classifie d D64.89 and D-dimer, elevated R79.89 [facility] [address] [address] Mar, Leg edema, right R60.0 ; High risk medic ation use Z79.899 and Morbid obesity E66.01 [place] [address] [address] Mar, BMI 50.0-59.9, adult Z68.43 [place] [address] [address] Mar, [place] [address] [address] January, Uncontrolled type 2 diabetes mellitus wi th hyperglycemia E11.65 ; RLS (restless legs syndrome) G25.81 and Morbid obesity E66.01 [place] [address] [address] Oct, Lipoma of right lower extremity D17.23 [place] [address] [address] Oct, Lipoma of right lower extremity D17.23 [place] [address] [address] Sep, [place] [address] [address] Sep, [place] [address] [address] Sep, [place] [address] [address] Sep, [place] [address] [address] Sep, [place] [address] [address] Aug, Uncontrolled type 2 diabetes mellitus wi th hyperglycemia E11.65 ; Morbid obesity due to excess calories E66.01 ; Lipoma of torso D17.1 and BMI 50.0-59.9, adult Z68.43 [place] [address] [place] [address] Jun, Encounter for immunization Z23 [facility] [id number] [place] [address] Jul, [facility] [id number] [place] [address] Jun, Encounter for immunization Z23 [facility] [id number] [place] [address] May, [facility] [id number] [place] [address] Jun, Encounter for immunization Z23 [facility] [id number] [place] [address] May, [facility] [id number] [place] [address] May, [facility] [id number] [place] [address] Apr, [facility] [id number] [place] [address] Feb, [facility] [id number] [place] [address] Feb, [facility] [id number] [place] [address] Feb, [facility] [id number] [place] [address] January, [facility] [id number] [place] [address] January, [facility] [id number] [place] [address] Dec, [facility] [id number] [place] [address] Dec, [facility] [id number] [place] [address] Nov, [facility] [id number] [place] [address] Nov, [facility] [place] [facility] [address] [facility] [id number] [place] [address] Nov, [facility] [place] [facility] [address] [facility] [id number] [place] [address] Nov, [facility] [place] [facility] [address] [id number] [place] [address] Nov, [facility] [place] [facility] [address] [facility] [id number] [place] [address] Nov, [facility] [place] [facility] [address] [facility] [id number] [place] [address] Nov, [facility] [place] [facility] [address] [id number] [place] [address] Oct, [facility] [place] [facility] [address] [id number] [place] [address] Oct, [facility] [place] [facility] [address] [id number] [place] [address] Oct, [facility] [place] [facility] [address] [id number] [place] [address] Oct, [facility] [place] [facility] [address] [id number] [place] [address] Oct, [facility] [place] [facility] [address] [id number] [place] [address] Sep, [facility] [place] [facility] [address] [id number] [place] [address] Sep, [facility] [place] [facility] [address] [facility] [id number] [place] [address] Sep, [facility] [place] [facility] [address] [id number] [place] [address] Sep, [facility] [place] [facility] [address] [id number] [place] [address] Sep, [facility] [place] [facility] [address] [id number] [place] [address] Sep, [facility] [place] [facility] [address] [id number] [place] [address] Sep, [facility] [place] [facility] [address] [id number] [place] [address] Sep, [facility] [place] [facility] [address] [id number] [place] [address] Sep, [facility] [place] [facility] [address] [id number] [place] [address] Sep, [facility] [place] [facility] [address] [id number] [place] [address] Aug, [facility] [place] [facility] [address] [id number] [place] [address] Aug, [facility] [place] [facility] [address] [id number] [place] [address] Aug, [facility] [place] [facility] [address] [id number] [place] [address] Aug, [facility] [place] [facility] [address] [id number] [place] [address] Aug, [facility] [place] [facility] [address] [id number] [place] [address] Aug, [facility] [place] [facility] [address] [id number] [place] [address] Aug, [facility] [place] [facility] [address] [id number] [place] [address] Aug, [facility] [place] [facility] [address] [id number] [place] [address] Aug, [facility] [place] [facility] [address] [id number] [place] [address] Aug, [facility] [place] [facility] [address] [id number] [place] [address] Aug, [facility] [place] [facility] [address] [id number] [place] [address] Aug, [facility] [place] [facility] [address] [id number] [place] [address] 18 Aug, 2014 [facility] [place] [facility] [address] [id number] [place] [address] 18 Aug, 2014 [facility] [place] [facility] [address] [id number] [place] [address] 17 Aug, 2014 [facility] [place] [facility] [address] [id number] [place] [address] 17 Aug, 2014 [facility] [place] [facility] [address] [id number] [place] [address] 16 Aug, 2014 [facility] [place] [facility] [address] [id number] [place] [address] 16 Aug, 2014 [facility] [place] [facility] [address] [id number] [place] [address] Aug, [facility] [place] [facility] [address] [id number] [place] [address] Aug, [facility] [place] [facility] [address] [id number] [place] [address] 08 Aug, 2014 [facility] [place] [facility] [address] [id number] [place] [address] 08 Aug, 2014 [facility] [place] [facility] [address] [id number] [place] [address] 05 Aug, 2014 [facility] [place] [facility] [address] [id number] [place] [address] 05 Aug, 2014 [facility] [place] [facility] [address] [id number] [place] [address] Jul, [facility] [place] [facility] [address] [id number] [place] [address] Jul, [facility] [place] [facility] [address] [id number] [place] [address] Jun, [facility] [place] [facility] [address] [id number] [place] [address] Jun, [facility] [place] [facility] [address] [id number] [place] [address] Jun, [facility] [place] [facility] [address] [id number] [place] [address] 17 Jun, 2014 [facility] [place] [facility] [address] [facility] [id number] [place] [address] 15 Jun, 2014 [facility] [place] [facility] [address] [id number] [place] [address] 15 Jun, 2014 [facility] [place] [facility] [address] [id number] [place] [address] 14 Jun, 2014 [facility] [place] [facility] [address] [id number] [place] [address] 14 Jun, 2014 [facility] [place] [facility] [address] [id number] [place] [address] 13 Jun, 2014 [facility] [place] [facility] [address] [id number] [place] [address] 13 Jun, 2014 [facility] [place] [facility] [address] [id number] [place] [address] 13 Jun, 2014 [facility] [place] [facility] [address] [id number] [place] [address] Jun, [facility] [place] [facility] [address] [id number] [place] [address] 06 Jun, 2014 [facility] [place] [facility] [address] [id number] [place] [address] Jun, [facility] [place] [facility] [address] [id number] [place] [address] 26 May, 2013 [facility] [place] [facility] [address] [id number] [place] [address] 26 May, 2013 [facility] [place] [facility] [address] [id number] [place] [address] 22 May, 2013 [facility] [place] [facility] [address] [id number] [place] [address] 22 May, 2013 [facility] [place] [facility] [address] [id number] [place] [address] May, 2013 [facility] [place] [facility] [address] [id number] [place] [address] 04 May, 2014 [facility] [place] [facility] [address] [id number] [place] [address] May, [facility] [place] [facility] [address] [facility] [id number] [place] [address] May, [facility] [place] [facility] [address] [id number] [place] [address] Apr, [facility] [place] [facility] [address] [id number] [place] [address] Apr, [facility] [place] [facility] [address] [facility] [id number] [place] [address] Apr, [facility] [place] [facility] [address] [id number] [place] [address] Apr, [facility] [place] [facility] [address] [id number] [place] [address] Apr, [facility] [place] [facility] [address] [id number] [place] [address] Apr, [facility] [place] [facility] [address] [id number] [place] [address] Apr, [facility] [place] [facility] [address] [id number] [place] [address] Apr, [facility] [place] [facility] [address] [id number] [place] [address] Apr, [facility] [place] [facility] [address] [id number] [place] [address] Mar, [facility] [place] [facility] [address] [id number] [place] [address] Mar, [facility] [place] [facility] [address] [facility] [id number] [place] [address] Mar, [facility] [place] [facility] [address] [id number] [place] [address] Feb, [facility] [place] [facility] [address] [id number] [place] [address] Feb, [facility] [place] [facility] [address] [id number] [place] [address] Feb, [facility] [place] [facility] [address] [facility] [id number] [place] [address] Feb, [facility] [place] [facility] [address] [facility] [id number] [place] [address] Feb, [facility] [place] [facility] [address] [facility] [id number] [place] [address] Feb, [facility] [place] [facility] [address] [facility] [id number] [place] [address] Feb, [facility] [place] [facility] [address] [facility] [id number] [place] [address] Feb, [facility] [place] [facility] [address] [facility] [id number] [place] [address] Feb, [facility] [place] [facility] [address] [id number] [place] [address] Feb, [facility] [place] [facility] [address] [id number] [place] [address] Feb, [facility] [place] [facility] [address] [facility] [id number] [place] [address] Feb, [facility] [place] [facility] [address] [id number] [place] [address] Feb, [facility] [place] [facility] [address] [id number] [place] [address] Feb, [facility] [place] [facility] [address] [id number] [place] [address] Feb, [facility] [place] [facility] [address] [facility] [id number] [place] [address] Feb, [facility] [place] [facility] [address] [facility] [id number] [place] [address] January, [facility] [place] [facility] [address] [facility] [id number] [place] [address] January, [facility] [place] [facility] [address] [id number] [place] [address] January, [facility] [place] [facility] [address] [facility] [id number] [place] [address] January, [facility] [place] [facility] [address] [id number] [place] [address] January, [facility] [place] [facility] [address] [facility] [id number] [place] [address] January, [facility] [place] [facility] [address] [id number] [place] [address] January, [facility] [place] [facility] [address] [id number] [place] [address] January, [facility] [place] [facility] [address] [id number] [place] [address] January, [facility] [place] [facility] [address] [id number] [place] [address] January, [facility] [place] [facility] [address] [id number] [place] [address] January, [facility] [place] [facility] [address] [id number] [place] [address] January, [facility] [place] [facility] [address] [id number] [place] [address] January, [facility] [place] [facility] [address] [id number] [place] [address] January, [facility] [place] [facility] [address] [id number] [place] [address] January, [facility] [place] [facility] [address] [id number] [place] [address] January, [facility] [place] [facility] [address] [id number] [place] [address] January, [facility] [place] [facility] [address] [id number] [place] [address] January, [facility] [place] [facility] [address] [id number] [place] [address] January, [facility] [place] [facility] [address] [id number] [place] [address] January, [facility] [place] [facility] [address] [id number] [place] [address] January, [facility] [place] [facility] [address] [id number] [place] [address] January, [facility] [place] [facility] [address] [id number] [place] [address] January, [facility] [place] [facility] [address] [id number] [place] [address] January, [facility] [place] [facility] [address] [id number] [place] [address] January, [facility] [place] [facility] [address] [id number] [place] [address] January, [facility] [place] [facility] [address] [id number] [place] [address] Dec, [facility] [place] [facility] [address] [id number] [place] [address] Dec, [facility] [place] [facility] [address] [id number] [place] [address] Dec, [facility] [place] [facility] [address] [id number] [place] [address] Dec, [facility] [place] [facility] [address] [id number] [place] [address] Dec, [facility] [place] [facility] [address] [id number] [place] [address] Dec, [facility] [place] [facility] [address] [id number] [place] [address] Dec, [facility] [place] [facility] [address] [id number] [place] [address] Dec, [facility] [place] [facility] [address] [id number] [place] [address] Dec, [facility] [place] [facility] [address] [id number] [place] [address] Dec, [facility] [place] [facility] [address] [id number] [place] [address] Dec, [facility] [place] [facility] [address] [facility] [id number] [place] [address] Dec, [facility] [place] [facility] [address] [facility] [id number] [place] [address] Dec, [facility] [place] [facility] [address] [facility] [id number] [place] [address] 14 Dec, 2013 [facility] [place] [facility] [address] [facility] [id number] [place] [address] Dec, [facility] [place] [facility] [address] [facility] [id number] [place] [address] Dec, [facility] [place] [facility] [address] [id number] [place] [address] Dec, [facility] [place] [facility] [address] [id number] [place] [address] Dec, [facility] [place] [facility] [address] [id number] [place] [address] Dec, [facility] [place] [facility] [address] [facility] [id number] [place] [address] Dec, [facility] [place] [facility] [address] [id number] [place] [address] Dec, [facility] [place] [facility] [address] [id number] [place] [address] Dec, [facility] [place] [facility] [address] [id number] [place] [address] Nov, [facility] [place] [facility] [address] [facility] [id number] [place] [address] Nov, [facility] [place] [facility] [address] [facility] [id number] [place] [address] Nov, [facility] [place] [facility] [address] [facility] [id number] [place] [address] Nov, [facility] [place] [facility] [address] [id number] [place] [address] 24 Nov, 2013 [facility] [place] [facility] [address] [id number] [place] [address] 24 Nov, 2013 [facility] [place] [facility] [address] [facility] [id number] [place] [address] Nov, [facility] [place] [facility] [address] [id number] [place] [address] Nov, [facility] [place] [facility] [address] [id number] [place] [address] 18 Nov, 2013 [facility] [place] [facility] [address] [id number] [place] [address] 18 Nov, 2013 [facility] [place] [facility] [address] [id number] [place] [address] 18 Nov, 2013 [facility] [place] [facility] [address] [id number] [place] [address] 18 Nov, 2013 [facility] [place] [facility] [address] [id number] [place] [address] 14 Nov, 2013 [facility] [place] [facility] [address] [id number] [place] [address] 14 Nov, 2013 [facility] [place] [facility] [address] [id number] [place] [address] Nov, [facility] [place] [facility] [address] [id number] [place] [address] Nov, [facility] [place] [facility] [address] [id number] [place] [address] Oct, [facility] [place] [facility] [address] [id number] [place] [address] Oct, [facility] [place] [facility] [address] [id number] [place] [address] Oct, [facility] [place] [facility] [address] [id number] [place] [address] Oct, [facility] [place] [facility] [address] [id number] [place] [address] Oct, [facility] [place] [facility] [address] [id number] [place] [address] Oct, [facility] [place] [facility] [address] [facility] [id number] [place] [address] Oct, [facility] [place] [facility] [address] [id number] [place] [address] Oct, [facility] [place] [facility] [address] [id number] [place] [address] Oct, [facility] [place] [facility] [address] [id number] [place] [address] Oct, [facility] [place] [facility] [address] [facility] [id number] [place] [address] Oct, [facility] [place] [facility] [address] [id number] [place] [address] Oct, [facility] [place] [facility] [address] [id number] [place] [address] Oct, [facility] [place] [facility] [address] [id number] [place] [address] Oct, [facility] [place] [facility] [address] [id number] [place] [address] Oct, [facility] [place] [facility] [address] [id number] [place] [address] Sep, [facility] [place] [facility] [address] [id number] [place] [address] Sep, [facility] [place] [facility] [address] [id number] [place] [address] Sep, [facility] [place] [facility] [address] [id number] [place] [address] Sep, [facility] [place] [facility] [address] [id number] [place] [address] Sep, [facility] [place] [facility] [address] [id number] [place] [address] Sep, [facility] [place] [facility] [address] [id number] [place] [address] Sep, [facility] [place] [facility] [address] [id number] [place] [address] 10 Sep, 2013 [facility] [place] [facility] [address] [id number] [place] [address] Sep, [facility] [place] [facility] [address] [id number] [place] [address] Sep, [facility] [place] [facility] [address] [id number] [place] [address] Sep, [facility] [address] [id number] [place] [address] Sep, [facility] [address] [id number] [place] [address] Sep, [facility] [address] [id number] [place] [address] Aug, [facility] [address] [id number] [place] [address] 30 Aug, 2013 [facility] [address] [id number] [place] [address] Aug, [facility] [address] [id number] [place] [address] 24 Aug, 2013 [facility] [address] [id number] [place] [address] Aug, [facility] [address] [id number] [place] [address] 17 Aug, 2013 [facility] [address] [id number] [place] [address] 16 Aug, 2013 [facility] [address] [id number] [place] [address] 16 Aug, 2013 [facility] [address] [id number] [place] [address] 12 Aug, 2013 [facility] [address] [id number] [place] [address] 12 Aug, 2013 [facility] [address] [id number] [place] [address] 10 Aug, 2013 [facility] [address] [id number] [place] [address] 10 Aug, 2012 [facility] [address] [id number] [place] [address] 02 Aug, 2013 [facility] [address] [id number] [place] [address] 02 Aug, 2013 [facility] [address] [id number] [place] [address] Jul, [facility] [address] [id number] [place] [address] 19 Jul, 2013 [facility] [address] [id number] [place] [address] 18 Jul, 2013 [facility] [address] [id number] [place] [address] 18 Jul, 2013 [facility] [id number] [place] [address] 14 Jul, 2013 [facility] [address] [id number] [place] [address] 14 Jul, 2013 [facility] [address] [id number] [place] [address] 14 Jul, 2013 [facility] [address] [id number] [place] [address] 14 Jul, 2013 [facility] [address] [id number] [place] [address] 07 Jul, 2013 [facility] [address] [id number] [place] [address] 07 Jul, 2013 [facility] [address] [id number] [place] [address] 06 Jul, 2013 [facility] [address] [id number] [place] [address] 06 Jul, 2013 [facility] [address] [id number] [place] [address] 05 Jul, 2012 [facility] [address] [id number] [place] [address] 05 Jul, 2013 [facility] [address] [facility] [id number] [place] [address] 23 Jun, 2013 [facility] [address] [facility] [id number] [place] [address] 23 Jun, 2013 [facility] [address] [id number] [place] [address] 15 Jun, 2013 [facility] [address] [facility] [id number] [place] [address] 15 Jun, 2013 [facility] [address] [facility] [id number] [place] [address] 14 Jun, 2013 [facility] [address] [id number] [place] [address] 24 May, 2012 [facility] [address] [id number] [place] [address] 20 May, 2012 [facility] [address] [id number] [place] [address] 20 May, 2012 [facility] [address] [facility] [id number] [place] [address] 20 May, 2012 [facility] [address] [id number] [place] [address] 19 May, 2012 [facility] [address] [id number] [place] [address] 13 May, 2012 [facility] [address] [id number] [place] [address] 12 Sep, 2012 [facility] [address] [facility] [id number] [place] [address] 12 Sep, 2012 [facility] [address] [id number] [place] [address] 11 May, 2012 [facility] [address] [facility] [id number] [place] [address] 11 May, 2012 [facility] [address] [id number] [place] [address] 11 May, 2012 [facility] [address] [id number] [place] [address] 09 May, 2012 [facility] [address] [id number] [place] [address] 05 May, 2012 [facility] [address] [facility] [id number] [place] [address] May, [facility] [address] [id number] [place] [address] May, [facility] [address] [facility] [id number] [place] [address] Apr, [facility] [address] [id number] [place] [address] Apr, [facility] [address] [id number] [place] [address] Apr, [facility] [address] [id number] [place] [address] Apr, [facility] [address] [id number] [place] [address] Apr, [facility] [address] [id number] [place] [address] Apr, [facility] [address] [id number] [place] [address] Apr, [facility] [address] [id number] [place] [address] Apr, [facility] [address] [id number] [place] [address] Apr, [facility] [address] [id number] [place] [address] Mar, [facility] [address] [id number] [place] [address] Mar, [facility] [address] [id number] [place] [address] Mar, [facility] [address] [id number] [place] [address] Mar, [facility] [address] [facility] [id number] [place] [address] Mar, 2012 [facility] [address] [id number] [place] [address] Mar, 2012 [facility] [address] [id number] [place] [address] Mar, 2012 [facility] [address] [id number] [place] [address] Mar, 2012 [facility] [address] [facility] [id number] [place] [address] Mar, 2012 [facility] [address] [id number] [place] [address] Mar, [facility] [address] [id number] [place] [address] Mar, [facility] [address] [id number] [place] [address] Feb, [facility] [address] [id number] [place] [address] Feb, [facility] [address] [id number] [place] [address] Feb, [facility] [address] [id number] [place] [address] Feb, [facility] [address] [id number] [place] [address] Feb, [facility] [address] [id number] [place] [address] Feb, [facility] [address] [id number] [place] [address] Feb, [facility] [address] [id number] [place] [address] Feb, [facility] [address] [id number] [place] [address] Feb, [facility] [address] [id number] [place] [address] January, [facility] [address] [id number] [place] [address] January, [facility] [address] [facility] [id number] [place] [address] January, [facility] [address] [id number] [place] [address] January, [facility] [address] [id number] [place] [address] January, [facility] [address] [facility] [id number] [place] [address] January, [facility] [address] [id number] [place] [address] January, [facility] [address] [id number] [place] [address] January, [facility] [address] [id number] [place] [address] January, [facility] [address] [facility] [id number] [place] [address] January, [facility] [address] [id number] [place] [address] January, [facility] [address] [id number] [place] [address] January, [facility] [address] [id number] [place] [address] January, [facility] [address] [facility] [id number] [place] [address] January, [facility] [address] [id number] [place] [address] January, [facility] [address] [id number] [place] [address] January, [facility] [address] [id number] [place] [address] January, [facility] [address] [id number] [place] [address] January, [facility] [address] [id number] [place] [address] January, [facility] [address] [id number] [place] [address] January, [facility] [address] [id number] [place] [address] January, [facility] [address] [id number] [place] [address] January, [facility] [address] [id number] [place] [address] January, [facility] [address] [id number] [place] [address] Dec, [facility] [address] [id number] [place] [address] Dec, [facility] [address] [id number] [place] [address] Dec, [facility] [address] [id number] [place] [address] Dec, [facility] [address] [id number] [place] [address] Dec, [facility] [address] [id number] [place] [address] Nov, [facility] [address] [id number] [place] [address] Oct, [facility] [address] [id number] [place] [address] Oct, [facility] [address] [id number] [place] [address] Oct, [facility] [address] [id number] [place] [address] Oct, [facility] [address] [id number] [place] [address] Oct, [facility] [address] [id number] [place] [address] Sep, [facility] [address] [id number] [place] [address] Sep, [facility] [address] [id number] [place] [address] Sep, [facility] [address] [id number] [place] [address] Aug, [facility] [address] [id number] [place] [address] Aug, [facility] [address] [id number] [place] [address] Aug, [facility] [address] [id number] [place] [address] Aug, [facility] [address] [id number] [place] [address] Jul, [facility] [address] [id number] [place] [address] Jul, [facility] [id number] [place] [address] Jul, [facility] [address] [id number] [place] [address] Jul, [facility] [id number] [place] [address] Jul, [facility] [address] [id number] [place] [address] Jul, [facility] [address] [id number] [place] [address] Jun, [facility] [address] [id number] [place] [address] Jun, [facility] [address] [id number] [place] [address] Jun, [facility] [address] [id number] [place] [address] Jun, [facility] [address] [id number] [place] [address] Jun, [facility] [address] [id number] [place] [address] Jun, [facility] [address] [id number] [place] [address] Jun, [facility] [address] [id number] [place] [address] Jun, [facility] [address] [id number] [place] [address] Jun, [facility] [address] [id number] [place] [address] Jun, [facility] [address] [id number] [place] [address] May, [facility] [address] [id number] [place] [address] May, [facility] [address] [id number] [place] [address] May, [facility] [address] [id number] [place] [address] Apr, [facility] [address] [id number] [place] [address] Apr, [facility] [address] [id number] [place] [address] Apr, [facility] [address] [id number] [place] [address] Apr, [facility] [address] [id number] [place] [address] Apr, [facility] [address] [id number] [place] [address] Apr, [facility] [address] [id number] [place] [address] Apr, [facility] [address] [id number] [place] [address] Apr, [facility] [address] [id number] [place] [address] Apr, [facility] [address] [id number] [place] [address] Mar, [facility] [address] [id number] [place] [address] Mar, [facility] [address] [id number] [place] [address] Mar, [facility] [address] [id number] [place] [address] Mar, [facility] [address] [id number] [place] [address] Feb, [facility] [address] [id number] [place] [address] Feb, [facility] [address] [id number] [place] [address] Feb, [facility] [address] [id number] [place] [address] January, [facility] [address] [id number] [place] [address] January, [facility] [address] [id number] [place] [address] January, [facility] [address] [id number] [place] [address] January, [facility] [address] [id number] [place] [address] January, [facility] [address] [id number] [place] [address] Dec, [facility] [address] [id number] [place] [address] Dec, [facility] [address] [id number] [place] [address] Dec, [facility] [address] [id number] [place] [address] Oct, [facility] [address] [id number] [place] [address] Oct, [facility] [address] [id number] [place] [address] Oct, [facility] [address] [id number] [place] [address] Sep, [facility] [address] [id number] [place] [address] Sep, [facility] [address] [id number] [place] [address] Aug, [facility] [address] [id number] [place] [address] Jul, [facility] [address] [id number] [place] [address] Jul, [facility] [address] [id number] [place] [address] Mar, [facility] [address] [id number] [place] [address] Aug, [facility] [address] [id number] [place] [address] Jul, [facility] [address] [id number] [place] [address] Jul, [facility] [address] [id number] [place] [address] Jul, [facility] [address] [id number] [place] [address] Jul, [facility] [address] [id number] [place] [address] 14 Jun, 2010 [facility] [address] [id number] [place] [address] Jun, [facility] [address] [id number] [place] [address] Apr, [facility] [address] [id number] [place] [address] Aug, [facility] [id number] [place] [address] Jul, [facility] [id number] [place] [address] Jul, [facility] [id number] [place] [address] Jul, [facility] [id number] [place] [address] Jun, [facility] [id number] [place] [address] May, [facility] [id number] [place] [address] 14 Dec, 2008 [facility] [id number] [place] [address] Nov, [facility] [id number] [place] [address] Oct, [facility] [id number] [place] [address] Aug, [facility] [id number] [place] [address] Aug, [facility] [id number] [place] [address] Jun, IMMUNIZATIONS No Known Immunizations SOCIAL HISTORY [...] x 3 day s 04/2012 Hospitalization History [facility] [place]- Right wrist injury 03/29/2018
--- OUTSIDE RECORDS SUMMARY | 2020-04-09 00:20 | XMS REPORT ---
Author Author Kateryna LOPEZ [facility] Address [address] [place] [address] Care Team Providers Care Floor Clerk Name Role Phone JESSE LOPEZ Unavailable PROBLEMS Type Condition ICD9-CM Code VWB45-UM Code Onset Dates Condition S tatus SNOMED Code Problem Irregular menses N92.6 Active 801 70946 Problem Migraine with aura and without status migrainosu s, not intractable G43.109 Active 7489245 Problem Uncontrolled type 2 diabetes mellitus with hyperglycemia E11.65 Active 770033166 Problem Morbid obesity due to excess calories E66.01 Active 228403235 Problem RLS (restless legs syndrome) G25.81 A ctive 54386476 Problem Morbid obesity E66.01 Active 71557 6002 ALLERGIES No Information ENCOUNTERS Encounter Location Date Diagnosis [facility] [address] [facility] [place] [id number] [address] [place] [address] 03 Nov, 2019 [facility] [address] [place] [id number] [address] [place] [address] 02 Nov, 2019 RLS (restless legs syndrome) G25.81 [facility] [address] [place] [id number] [address] [place] [address] 15 Oct, 2019 [facility] [address] [facility] [place] [id number] [address] [place] [address] 09 Oct, 2019 Influenza J11.1 [facility] [address] [facility] [place] [id number] [address] [place] [address] 16 Sep, 2019 [facility] [address] [place] [place] [id number] [address] [place] [address] Sep, [facility] [address] [id number] [address] [place] [address] Sep, [facility] [address] [id number] [address] [place] [address] 13 Sep, 2019 [facility] [address] [id number] [address] [place] [address] Sep, Pneumonia of left lower lobe due to infectious organism J18.9 and Migraine with aura and without status migrainosus, not intractable G43.109 [facility] [address] [id number] [address] [place] [address] Sep, [facility] [address] [id number] [address] [place] [address] Sep, [facility] [address] [id number] [address] [place] [address] Sep, [facility] [address] [id number] [address] [place] [address] Sep, [facility] [address] [id number] [address] [place] [address] Sep, Pneumonia of left lower lobe due to infectious organism J18.9 and Migraine with aura and without status migrainosus, not intractable G43.109 [facility] [address] [id number] [address] [place] [address] Aug, Irregular menses N92.6 ; Wel l woman exam Z01.419 ; Pelvic cramping R10.2 and Left breast lump N63.20 [place] [address] [id number] [address] [place] [address] Aug, [facility] [address] [id number] [address] [place] [address] Aug, Well woman exam Z01.419 ; Le ft breast lump N63.20 ; Irregular menses N92.6 ; Encounter for immunization Z23 ; Pelvic cramping R10.2 and Screening for cervical cancer Z12.4 [facility] [address] [id number] [address] [place] [address] Aug, [place] [address] [facility] [place] [id number] [address] [place] [address] Aug, [facility] [address] [facility] [place] [id number] [address] [place] [address] Aug, [facility] [address] [facility] [place] [id number] [address] [place] [address] Jul, [facility] [address] [place] [id number] [place] [address] Jun, [facility] [address] [place] [id number] [place] [address] Jun, [facility] [address] [address] Jun, [facility] [address] [place] [id number] [address] [place] [address] Jun, BMI 50.0-59.9, adult Z68.43 [facility] [address] [place] [id number] [address] [place] [address] Jun, [facility] [address] [place] [id number] [address] [place] [address] May, Acute non-recurrent sinusiti s, unspecified location J01.90 ; Diarrhea, unspecified R19.7 ; Vomiting, unspecified R11.10 and Morbid obesity E66.01 [facility] [id number] [place] [address] Apr, [facility] [address] [place] [id number] [address] [place] [address] Apr, Anemia due to other cause, n ot classified D64.89 and D-dimer, elevated R79.89 [facility] [address] [place] [id number] [address] [place] [address] Apr, [facility] [address] [place] [id number] [address] [place] [address] Apr, [facility] [address] [place] [id number] [address] [place] [address] Mar, Anemia due to other cause, n ot classified D64.89 and D-dimer, elevated R79.89 [place] [address] [place] [id number] [address] [place] [address] Mar, Leg edema, right R60.0 ; Hig h risk medication use Z79.899 and Morbid obesity E66.01 [place] [address] [address] Mar, BMI 50.0-59.9, adult Z68.43 [place] [address] [address] Mar, [place] [address] [address] January, Uncontrolled type 2 diabetes mellitus with hyperglycemia E11.65 ; RLS (restless legs syndrome) G25.81 and Morbid obesity E66.01 [place] [address] [place] [id number] [address] [place] [address] Oct, Lipoma of right lower extrem ity D17.23 [place] [address] [place] [id number] [address] [place] [address] Oct, Lipoma of right lower extrem ity D17.23 [place] [address] [place] [id number] [address] [place] [address] Sep, [facility] [address] [place] [id number] [address] [place] [address] Sep, [facility] [address] [place] [id number] [address] [place] [address] Sep, [facility] [address] [place] [id number] [address] [place] [address] Sep, [facility] [address] [place] [id number] [address] [place] [address] Sep, [facility] [address] [place] [id number] [address] [place] [address] Aug, Uncontrolled type 2 diabetes mellitus with hyperglycemia E11.65 ; Morbid obesity due to excess calories E66.01 ; Lipoma of torso D17.1 and BMI 50.0-59.9, adult Z68.43 [facility] [address] [id number] [address] [place] [address] Jun, Encounter for immunization Z 23 [facility] [address] [id number] [address] [place] [address] Jul, [facility] [address] [facility] [place] [id number] [address] [place] [address] Jun, Encounter for immunization Z 23 [facility] [address] [id number] [address] [place] [address] 30 May, 2016 [facility] [address] [facility] [place] [id number] [address] [place] [address] Jun, Encounter for immunization Z 23 [facility] [address] [id number] [address] [place] [address] May, [facility] [address] [id number] [address] [place] [address] May, [facility] [address] [facility] [place] [id number] [address] [place] [address] Apr, [facility] [address] [id number] [address] [place] [address] Feb, [facility] [address] [id number] [address] [place] [address] Feb, [facility] [address] [id number] [address] [place] [address] Feb, [facility] [address] [facility] [place] [id number] [address] [place] [address] January, [facility] [address] [facility] [place] [id number] [address] [place] [address] January, [facility] [address] [id number] [address] [place] [address], [place] [address] 14 Dec, 2014 [facility] [address] [id number] [address] [place] [address], [place] [address] Dec, [facility] [address] [id number] [address] [place] [address], [place] [address] Nov, [facility] [address] [id number] [address] [place] [address], [place] [address] Nov, [facility] [address] [id number] [address] [place] [address], [place] [address] Nov, [facility] [address] [id number] [address] [place] [address], [place] [address] Nov, [facility] [address] [id number] [address] [place] [address], [place] [address] Nov, [facility] [address] [id number] [address] [place] [address], [place] [address] Nov, [facility] [address] [id number] [address] [place] [address], [place] [address] Nov, [facility] [address] [id number] [address] [place] [address], [place] [address] Oct, [facility] [address] [id number] [address] [place] [address], [place] [address] Oct, [facility] [address] [id number] [address] [place] [address] Oct, [facility] [address] [id number] [address] [place] [address], [place] [address] Oct, [facility] [address] [id number] [address] [place] [address], [place] [address] Oct, [facility] [address] [id number] [address] [place] [address], [place] [address] Sep, [facility] [address] [id number] [address] [place] [address] Sep, [facility] [address] [id number] [address] [place] [address], [place] [address] Sep, [facility] [address] [id number] [address] [place] [address], [place] [address] Sep, [facility] [address] [id number] [address] [place] [address], [place] [address] Sep, [facility] [address] [id number] [address] [place] [address], [place] [address] Sep, [facility] [address] [id number] [address] [place] [address], [place] [address] Sep, [facility] [address] [id number] [address] [place] [address], [place] [address] Sep, [facility] [address] [id number] [address] [place] [address], [place] [address] Sep, [facility] [address] [id number] [address] [place] [address], [place] [address] Sep, [facility] [address] [id number] [address] [place] [address], [place] [address] Aug, [facility] [address] [id number] [address] [place] [address], [place] [address] Aug, [facility] [address] [id number] [address] [place] [address], [place] [address] Aug, [facility] [address] [id number] [address] [place] [address], [place] [address] Aug, [facility] [address] [id number] [address] [place] [address], [place] [address] Aug, [facility] [address] [id number] [address] [place] [address], [place] [address] Aug, [facility] [address] [id number] [address] [place] [address], [place] [address] Aug, [facility] [address] [id number] [address] [place] [address], [place] [address] Aug, [facility] [address] [id number] [address] [place] [address], [place] [address] Aug, [facility] [address] [id number] [address] [place] [address], [place] [address] Aug, [facility] [address] [id number] [address] [place] [address], [place] [address] Aug, [facility] [address] [id number] [address] [place] [address], [place] [address] Aug, [facility] [address] [id number] [address] [place] [address], [place] [address] Aug, [facility] [address] [id number] [address] [place] [address], [place] [address] 18 Aug, 2014 [facility] [address] [id number] [address] [place] [address], [place] [address] 17 Aug, 2014 [facility] [address] [id number] [address] [place] [address], [place] [address] 17 Aug, 2014 [facility] [address] [id number] [address] [place] [address], [place] [address] 16 Aug, 2014 [facility] [address] [id number] [address] [place] [address], [place] [address] 16 Aug, 2014 [facility] [address] [id number] [address] [place] [address], [place] [address] Aug, [facility] [address] [id number] [address] [place] [address], [place] [address] Aug, [facility] [address] [id number] [address] [place] [address], [place] [address] 08 Aug, 2014 [facility] [address] [id number] [address] [place] [address], [place] [address] 08 Aug, 2014 [facility] [address] [id number] [address] [place] [address], [place] [address] 05 Aug, 2014 [facility] [address] [id number] [address] [place] [address], [place] [address] 05 Aug, 2014 [facility] [address] [id number] [address] [place] [address], [place] [address] Jul, [facility] [address] [id number] [address] [place] [address], [place] [address] Jul, [facility] [address] [id number] [address] [place] [address], [place] [address] 27 Jun, 2014 [facility] [address] [id number] [address] [place] [address], [place] [address] 27 Jun, 2014 [facility] [address] [id number] [address] [place] [address], [place] [address] 17 Jun, 2014 [facility] [address] [id number] [address] [place] [address], [place] [address] 17 Jun, 2014 [facility] [address] [id number] [address] [place] [address], [place] [address] 15 Jun, 2014 [facility] [address] [id number] [address] [place] [address], [place] [address] 15 Jun, 2014 [facility] [address] [id number] [address] [place] [address] 14 Jun, 2014 [facility] [address] [id number] [address] [place] [address], [place] [address] 14 Jun, 2014 [facility] [address] [id number] [address] [place] [address] 13 Jun, 2014 [facility] [address] [id number] [address] [place] [address], [place] [address] 13 Jun, 2014 [facility] [address] [id number] [address] [place] [address], [place] [address] 13 Jun, 2014 [facility] [address] [id number] [address] [place] [address], [place] [address] 13 Jun, 2014 [facility] [address] [id number] [address] [place] [address], [place] [address] Jun, [facility] [address] [id number] [address] [place] [address], [place] [address] Jun, [facility] [address] [id number] [address] [place] [address], [place] [address] May, 2013 [facility] [address] [id number] [address] [place] [address], [place] [address] May, 2013 [facility] [address] [id number] [address] [place] [address], [place] [address] May, 2013 [facility] [address] [id number] [address] [place] [address], [place] [address] May, 2013 [facility] [address] [id number] [address] [place] [address], [place] [address] May, 2013 [facility] [address] [id number] [address] [place] [address], [place] [address] May, 2013 [facility] [address] [id number] [address] [place] [address], [place] [address] May, 2013 [facility] [address] [id number] [address] [place] [address], [place] [address] May, [facility] [address] [id number] [address] [place] [address], [place] [address] Apr, [facility] [address] [id number] [address] [place] [address], [place] [address] Apr, [facility] [address] [id number] [address] [place] [address], [place] [address] Apr, [facility] [address] [id number] [address] [place] [address], [place] [address] Apr, [facility] [address] [id number] [address] [place] [address], [place] [address] Apr, [facility] [address] [id number] [address] [place] [address], [place] [address] Apr, [facility] [address] [id number] [facility] [place] [address] Apr, [facility] [address] [id number] [facility] [address] Apr, [facility] [address] [id number] [facility] [address] Apr, [facility] [address] [id number] [address] [place] [address], [place] [address] Mar, [facility] [address] [id number] [address] [place] [address], [place] [address] Mar, [facility] [address] [id number] [address] [place] [address], [place] [address] Mar, [facility] [address] [id number] [address] [place] [address], [place] [address] Feb, [facility] [address] [id number] [address] [place] [address], [place] [address] Feb, [facility] [address] [id number] [address] [place] [address], [place] [address] Feb, [facility] [address] [id number] [address] [place] [address], [place] [address] Feb, [facility] [address] [id number] [address] [place] [address], [place] [address] Feb, [facility] [address] [id number] [address] [place] [address], [place] [address] Feb, [facility] [address] [id number] [address] [place] [address], [place] [address] Feb, [facility] [address] [id number] [address] [place] [address], [place] [address] Feb, [facility] [address] [id number] [address] [place] [address], [place] [address] 16 Feb, 2014 [facility] [address] [id number] [address] [place] [address], [place] [address] Feb, [facility] [address] [id number] [facility] [address] Feb, [facility] [address] [id number] [address] [place] [address], [place] [address] Feb, [facility] [address] [id number] [address] [place] [address], [place] [address] Feb, [facility] [address] [id number] [address] [place] [address], [place] [address] Feb, [facility] [address] [id number] [address] [place] [address], [place] [address] Feb, [facility] [address] [id number] [address] [place] [address], [place] [address] Feb, [facility] [address] [id number] [address] [place] [address], [place] [address] January, [facility] [address] [id number] [address] [place] [address], [place] [address] January, [facility] [address] [id number] [address] [place] [address], [place] [address] January, [facility] [address] [id number] [address] [place] [address], [place] [address] January, [facility] [address] [id number] [address] [place] [address], [place] [address] January, [facility] [address] [id number] [address] [place] [address], [place] [address] January, [facility] [address] [id number] [address] [place] [address], [place] [address] January, [facility] [address] [id number] [address] [place] [address], [place] [address] January, [facility] [address] [id number] [address] [place] [address], [place] [address] January, [facility] [address] [id number] [address] [place] [address], [place] [address] January, [facility] [address] [id number] [address] [place] [address], [place] [address] January, [facility] [address] [id number] [address] [place] [address], [place] [address] January, [facility] [address] [id number] [address] [place] [address], [place] [address] January, [facility] [address] [id number] [address] [place] [address], [place] [address] January, [facility] [address] [id number] [address] [place] [address], [place] [address] January, [facility] [address] [id number] [address] [place] [address], [place] [address] January, [facility] [address] [id number] [address] [place] [address], [place] [address] January, [facility] [address] [id number] [address] [place] [address], [place] [address] January, [facility] [address] [id number] [address] [place] [address], [place] [address] January, [facility] [address] [id number] [address] [place] [address], [place] [address] January, [facility] [address] [id number] [address] [place] [address], [place] [address] January, [facility] [address] [id number] [address] [place] [address], [place] [address] January, [facility] [address] [id number] [address] [place] [address], [place] [address] January, [facility] [address] [id number] [address] [place] [address], [place] [address] January, [facility] [address] [id number] [address] [place] [address], [place] [address] January, [facility] [address] [id number] [address] [place] [address], [place] [address] January, [facility] [address] [id number] [address] [place] [address], [place] [address] Dec, [facility] [address] [id number] [address] [place] [address], [place] [address] Dec, [facility] [address] [id number] [address] [place] [address], [place] [address] Dec, [facility] [address] [id number] [address] [place] [place] [address], [place] [address] Dec, [facility] [address] [id number] [address] [place] [address], [place] [address] Dec, [facility] [address] [id number] [address] [place] [address], [place] [address] Dec, [facility] [address] [id number] [address] [place] [address], [place] [address] Dec, [facility] [address] [id number] [address] [place] [address], [place] [address] Dec, [facility] [address] [id number] [address] [place] [address], [place] [address] Dec, [facility] [address] [id number] [address] [place] [address], [place] [address] Dec, [facility] [address] [id number] [address] [place] [address], [place] [address] Dec, [facility] [address] [id number] [address] [place] [address], [place] [address] Dec, [facility] [address] [id number] [address] [place] [address], [place] [address] Dec, [facility] [address] [id number] [address] [place] [address], [place] [address] Dec, [facility] [address] [id number] [address] [place] [address], [place] [address] Dec, [facility] [address] [id number] [address] [place] [address], [place] [address] Dec, [facility] [address] [id number] [address] [place] [address], [place] [address] Dec, [facility] [address] [id number] [address] [place] [address], [place] [address] Dec, [facility] [address] [id number] [address] [place] [address], [place] [address] Dec, [facility] [address] [id number] [address] [place] [address], [place] [address] Dec, [facility] [address] [id number] [address] [place] [address], [place] [address] Dec, [facility] [address] [id number] [address] [place] [address], [place] [address] Dec, [facility] [address] [id number] [address] [place] [address], [place] [address] Nov, [facility] [address] [id number] [address] [place] [address], [place] [address] Nov, [facility] [address] [id number] [address] [place] [address], [place] [address] Nov, [facility] [address] [id number] [address] [place] [address], [place] [address] Nov, [facility] [address] [id number] [address] [place] [address], [place] [address] Nov, [facility] [address] [id number] [address] [place] [address], [place] [address] Nov, [facility] [address] [id number] [address] [place] [address], [place] [address] Nov, [facility] [address] [id number] [address] [place] [address], [place] [address] Nov, [facility] [address] [id number] [address] [place] [address], [place] [address] 18 Nov, 2013 [facility] [address] [id number] [address] [place] [address], [place] [address] 18 Nov, 2013 [facility] [address] [id number] [address] [place] [address], [place] [address] 18 Nov, 2013 [facility] [address] [id number] [address] [place] [address], [place] [address] 18 Nov, 2013 [facility] [address] [id number] [address] [place] [address], [place] [address] 14 Nov, 2013 [facility] [address] [id number] [address] [place] [address], [place] [address] 14 Nov, 2013 [facility] [address] [id number] [address] [place] [address], [place] [address] 06 Nov, 2013 [facility] [address] [id number] [address] [place] [address], [place] [address] Nov, [facility] [address] [id number] [address] [place] [address], [place] [address] Oct, [facility] [address] [id number] [address] [place] [address], [place] [address] 28 Oct, 2013 [facility] [address] [id number] [address] [place] [address], [place] [address] 24 Oct, 2013 [facility] [address] [id number] [address] [place] [address], [place] [address] 24 Oct, 2013 [facility] [address] [id number] [address] [place] [address], [place] [address] 24 Oct, 2013 [facility] [address] [id number] [address] [place] [address], [place] [address] 24 Oct, 2013 [facility] [address] [id number] [address] [place] [address], [place] [address] 22 Oct, 2013 [facility] [address] [id number] [address] [place] [address], [place] [address] Oct, [facility] [address] [id number] [address] [place] [address], [place] [address] Oct, [facility] [address] [id number] [address] [place] [address], [place] [address] Oct, [facility] [address] [id number] [address] [place] [address], [place] [address] Oct, [facility] [address] [id number] [address] [place] [address], [place] [address] Oct, [facility] [address] [id number] [address] [place] [address], [place] [address] Oct, [facility] [address] [id number] [address] [place] [address], [place] [address] Oct, [facility] [address] [id number] [address] [place] [address], [place] [address] Oct, [facility] [address] [id number] [address] [place] [address], [place] [address] Sep, [facility] [address] [id number] [address] [place] [address], [place] [address] Sep, [facility] [address] [id number] [address] [place] [address], [place] [address] 15 Sep, 2013 [facility] [address] [id number] [address] [place] [address], [place] [address] Sep, [facility] [address] [id number] [address] [place] [address], [place] [address] Sep, [facility] [address] [id number] [address] [place] [address], [place] [address] Sep, [facility] [address] [id number] [address] [place] [address], [place] [address] Sep, [facility] [address] [id number] [address] [place] [address], [place] [address] Sep, [facility] [address] [id number] [address] [place] [address], [place] [address] Sep, [facility] [address] [id number] [address] [place] [address], [place] [address] Sep, [facility] [address] [id number] [address] [place] [address], [place] [address] Sep, [facility] [address] [id number] [address] [place] [address], [place] [address] Sep, [facility] [address] [id number] [address] [place] [address], [place] [address] Sep, [facility] [address] [id number] [address] [place] [address], [place] [address] Aug, [facility] [address] [id number] [address] [place] [address], [place] [address] Aug, [facility] [address] [id number] [address] [place] [address], [place] [address] Aug, [facility] [address] [id number] [address] [place] [address], [place] [address] Aug, [facility] [address] [id number] [address] [place] [address], [place] [address] Aug, [facility] [address] [id number] [address] [place] [address], [place] [address] 17 Aug, 2013 [facility] [address] [id number] [address] [place] [address], [place] [address] 16 Aug, 2013 [facility] [address] [id number] [address] [place] [address], [place] [address] Aug, [facility] [address] [id number] [address] [place] [address], [place] [address] Aug, [facility] [address] [id number] [address] [place] [address], [place] [address] Aug, [facility] [address] [id number] [address] [place] [address] 10 Aug, 2013 [facility] [address] [id number] [address] [place] [address], [place] [address] 10 Aug, 2013 [facility] [address] [id number] [address] [place] [address], [place] [address] Aug, [facility] [address] [id number] [address] [place] [address], [place] [address] Aug, [facility] [address] [id number] [address] [place] [address] Jul, [facility] [address] [id number] [address] [place] [address], [place] [address] Jul, [facility] [address] [id number] [address] [place] [address], [place] [address] 18 Jul, 2013 [facility] [address] [id number] [address] [place] [address], [place] [address] 18 Jul, 2013 [facility] [address] [id number] [address] [place] [address], [place] [address] 14 Jul, 2013 [facility] [address] [id number] [address] [place] [address] 14 Jul, 2013 [facility] [address] [id number] [address] [place] [address], [place] [address] 14 Jul, 2013 [facility] [address] [id number] [address] [place] [address] 14 Jul, 2013 [facility] [address] [id number] [address] [place] [address] 07 Jul, 2013 [facility] [address] [id number] [address] [place] [address], [place] [address] 07 Jul, 2013 [facility] [address] [id number] [address] [place] [address], [place] [address] 06 Jul, 2013 [facility] [address] [id number] [address] [place] [address], [place] [address] 06 Jul, 2013 [facility] [address] [id number] [address] [place] [address], [place] [address] 05 Jul, 2013 [facility] [address] [id number] [address] [place] [address], [place] [address] 05 Jul, 2013 [facility] [address] [id number] [address] [place] [address], [place] [address] 23 Jun, 2013 [facility] [address] [id number] [address] [place] [address], [place] [address] 23 Jun, 2013 [facility] [address] [id number] [address] [place] [address], [place] [address] 15 Jun, 2013 [facility] [address] [id number] [address] [place] [address], [place] [address] 15 Jun, 2013 [facility] [address] [id number] [address] [place] [address], [place] [address] 14 Jun, 2013 [facility] [address] [id number] [address] [place] [address], [place] [address] 24 May, 2012 [facility] [address] [id number] [address] [place] [address], [place] [address] 20 May, 2012 [facility] [address] [id number] [address] [place] [address], [place] [address] 20 May, 2012 [facility] [address] [id number] [address] [place] [address], [place] [address] 20 May, 2012 [facility] [address] [id number] [address] [place] [address], [place] [address] 19 Sep, 2012 [facility] [address] [id number] [address] [place] [address], [place] [address] 13 Sep, 2012 [facility] [address] [id number] [address] [place] [address], [place] [address] 12 May, 2012 [facility] [address] [id number] [address] [place] [address], [place] [address] 12 May, 2012 [facility] [address] [id number] [address] [place] [address], [place] [address] 11 May, 2012 [facility] [address] [id number] [facility] [place] [address] 11 May, 2012 [facility] [address] [id number] [address] [place] [address], [place] [address] May, 2012 [facility] [address] [id number] [address] [place] [address], [place] [address] 09 May, 2012 [facility] [address] [id number] [address] [place] [address], [place] [address] 05 May, 2012 [facility] [address] [id number] [address] [place] [address], [place] [address] 04 May, 2012 [facility] [address] [id number] [address] [place] [address], [place] [address] 03 May, 2012 [facility] [address] [id number] [address] [place] [address], [place] [address] Apr, [facility] [address] [id number] [address] [place] [address], [place] [address] Apr, [facility] [address] [id number] [address] [place] [address], [place] [address] Apr, [facility] [address] [id number] [address] [place] [address], [place] [address] Apr, [facility] [address] [id number] [address] [place] [address], [place] [address] Apr, [facility] [address] [id number] [address] [place] [address], [place] [address] Apr, [facility] [address] [id number] [address] [place] [address], [place] [address] Apr, [facility] [address] [id number] [address] [place] [address], [place] [address] Apr, [facility] [address] [id number] [address] [place] [address], [place] [address] Apr, [facility] [address] [id number] [address] [place] [address], [place] [address] Mar, [facility] [address] [id number] [address] [place] [address], [place] [address] Mar, [facility] [address] [id number] [address] [place] [address], [place] [address] Mar, [facility] [address] [id number] [address] [place] [address], [place] [address] Mar, [facility] [address] [id number] [address] [place] [address], [place] [address] Mar, [facility] [address] [id number] [address] [place] [address], [place] [address] Mar, [facility] [address] [id number] [address] [place] [address], [place] [address] Mar, [facility] [address] [id number] [address] [place] [address], [place] [address] Mar, [facility] [address] [id number] [address] [place] [address], [place] [address] Mar, [facility] [address] [id number] [address] [place] [address], [place] [address] Mar, [facility] [address] [id number] [address] [place] [address], [place] [address] Mar, [facility] [address] [id number] [address] [place] [address], [place] [address] Feb, [facility] [address] [id number] [address] [place] [address], [place] [address] Feb, [facility] [address] [id number] [address] [place] [address], [place] [address] Feb, [facility] [address] [id number] [address] [place] [address], [place] [address] Feb, [facility] [address] [id number] [address] [place] [address], [place] [address] Feb, [facility] [address] [id number] [address] [place] [address], [place] [address] Feb, [facility] [address] [id number] [address] [place] [address], [place] [address] Feb, [facility] [address] [id number] [address] [place] [address], [place] [address] Feb, [facility] [address] [id number] [address] [place] [address], [place] [address] Feb, [facility] [address] [id number] [address] [place] [address], [place] [address] January, [facility] [address] [id number] [address] [place] [address], [place] [address] January, [facility] [address] [id number] [address] [place] [address], [place] [address] January, [facility] [address] [id number] [address] [place] [address], [place] [address] January, [facility] [address] [id number] [address] [place] [address], [place] [address] January, [facility] [address] [id number] [address] [place] [address], [place] [address] January, [facility] [address] [id number] [address] [place] [address], [place] [address] January, [facility] [address] [id number] [address] [place] [address], [place] [address] January, [facility] [address] [id number] [address] [place] [address], [place] [address] January, [facility] [address] [id number] [address] [place] [address], [place] [address] January, [facility] [address] [id number] [address] [place] [address], [place] [address] January, [facility] [address] [id number] [address] [place] [address], [place] [address] January, [facility] [address] [id number] [address] [place] [address], [place] [address] January, [facility] [address] [id number] [address] [place] [address], [place] [address] January, [facility] [address] [id number] [address] [place] [address], [place] [address] January, [facility] [address] [id number] [address] [place] [address], [place] [address] January, [facility] [address] [id number] [address] [place] [address], [place] [address] January, [facility] [address] [id number] [address] [place] [address], [place] [address] January, [facility] [address] [id number] [address] [place] [address], [place] [address] January, [facility] [address] [id number] [address] [place] [address], [place] [address] January, [facility] [address] [id number] [address] [place] [address], [place] [address] January, [facility] [address] [id number] [address] [place] [address], [place] [address] January, [facility] [address] [id number] [address] [place] [address], [place] [address] January, [facility] [address] [id number] [address] [place] [address], [place] [address] Dec, [facility] [address] [id number] [address] [place] [address], [place] [address] Dec, [facility] [address] [id number] [address] [place] [address], [place] [address] Dec, [facility] [address] [id number] [address] [place] [address], [place] [address] Dec, [facility] [address] [id number] [address] [place] [address], [place] [address] Dec, [facility] [address] [id number] [address] [place] [address], [place] [address] Nov, [facility] [address] [id number] [address] [place] [address], [place] [address] Oct, [facility] [address] [id number] [address] [place] [address], [place] [address] Oct, [facility] [address] [id number] [address] [place] [address], [place] [address] Oct, [facility] [address] [id number] [address] [place] [address], [place] [address] Oct, [facility] [address] [id number] [address] [place] [address], [place] [address] Oct, [facility] [address] [id number] [address] [place] [address], [place] [address] Sep, [facility] [address] [id number] [address] [place] [address], [place] [address] Sep, [facility] [address] [id number] [address] [place] [address], [place] [address] Sep, [facility] [address] [id number] [address] [place] [address], [place] [address] Aug, [facility] [address] [id number] [address] [place] [address], [place] [address] Aug, [facility] [address] [id number] [address] [place] [address], [place] [address] Aug, [facility] [address] [id number] [address] [place] [address], [place] [address] Aug, [facility] [address] [id number] [address] [place] [address], [place] [address] Jul, [facility] [address] [id number] [address] [place] [address], [place] [address] Jul, [facility] [address] [id number] [address] [place] [address], [place] [address] Jul, [facility] [address] [id number] [address] [place] [address], [place] [address] Jul, [facility] [address] [id number] [address] [place] [address], [place] [address] Jul, [facility] [address] [id number] [address] [place] [address], [place] [address] Jul, [facility] [address] [id number] [address] [place] [address], [place] [address] Jun, [facility] [address] [id number] [address] [place] [address], [place] [address] Jun, [facility] [address] [id number] [address] [place] [address], [place] [address] Jun, [facility] [address] [id number] [address] [place] [address] Jun, [facility] [address] [id number] [address] [place] [address], [place] [address] Jun, [facility] [address] [id number] [address] [place] [address] Jun, [facility] [address] [id number] [address] [place] [address] Jun, [facility] [address] [id number] [address] [place] [address] Jun, [facility] [address] [id number] [address] [place] [address] Jun, [facility] [address] [id number] [address] [place] [address] Jun, [facility] [address] [id number] [address] [place] [address], [place] [address] May, [facility] [address] [id number] [address] [place] [address], [place] [address] 08 May, 2012 [facility] [address] [id number] [address] [place] [address], [place] [address] May, [facility] [address] [id number] [address] [place] [address], [place] [address] Apr, [facility] [address] [id number] [address] [place] [address], [place] [address] Apr, [facility] [address] [id number] [address] [place] [address], [place] [address] Apr, [facility] [address] [id number] [address] [place] [address], [place] [address] Apr, [facility] [address] [id number] [address] [place] [place] [address], [place] [address] Apr, [facility] [address] [id number] [address] [place] [address], [place] [address] Apr, [facility] [address] [id number] [address] [place] [address], [place] [address] Apr, [facility] [address] [id number] [address] [place] [address], [place] [address] Apr, [facility] [address] [id number] [address] [place] [address], [place] [address] Apr, [facility] [address] [id number] [address] [place] [address], [place] [address] Mar, [facility] [address] [id number] [address] [place] [address], [place] [address] Mar, [facility] [address] [id number] [address] [place] [address], [place] [address] Mar, [facility] [address] [id number] [address] [place] [address], [place] [address] Mar, [facility] [address] [id number] [address] [place] [address], [place] [address] Feb, [facility] [address] [id number] [address] [place] [address], [place] [address] Feb, [facility] [address] [id number] [address] [place] [address], [place] [address] Feb, [facility] [address] [id number] [address] [place] [address], [place] [address] January, [facility] [address] [id number] [address] [place] [address], [place] [address] January, [facility] [address] [id number] [address] [place] [address], [place] [address] January, [facility] [address] [id number] [address] [place] [address], [place] [address] January, [facility] [address] [id number] [address] [place] [address], [place] [address] January, [facility] [address] [id number] [address] [place] [address], [place] [address] Dec, [facility] [address] [id number] [address] [place] [address], [place] [address] Dec, [facility] [address] [id number] [address] [place] [address], [place] [address] Dec, [facility] [address] [id number] [address] [place] [address], [place] [address] Oct, [facility] [address] [id number] [address] [place] [address], [place] [address] Oct, [facility] [address] [id number] [address] [place] [address], [place] [address] Oct, [facility] [address] [id number] [address] [place] [address], [place] [address] Sep, [facility] [address] [id number] [address] [place] [address], [place] [address] Sep, [facility] [address] [id number] [address] [place] [id number] 07 Aug, 2011 [facility] [address] [id number] [address] [place] [address], [place] [address] 08 Jul, 2011 [facility] [address] [id number] [address] [place] [address] 08 Jul, 2011 [facility] [address] [id number] [address] [place] [address], [place] [address] Mar, [facility] [address] [id number] [address] [place] [address] Aug, [facility] [address] [id number] [address] [place] [address], [place] [address] 10 Jul, 2010 [facility] [address] [id number] [address] [place] [address], [place] [address] Jul, [facility] [address] [id number] [address] [place] [address], [place] [address] Jul, [facility] [address] [id number] [address] [place] [address], [place] [address] Jul, [facility] [address] [id number] [address] [place] [address] 14 Jun, 2010 [facility] [address] [id number] [address] [place] [address], [place] [address] Jun, [facility] [address] [id number] [address] [place] [address] Apr, [facility] [address] [id number] [address] [place] [address] Aug, [facility] [address] [id number] [address] [place] [address], [place] [address] Jul, [facility] [address] [id number] [address] [place] [address] 17 Jul, 2009 [facility] [address] [id number] [address] [place] [address], [place] [address] 13 Jul, 2009 [facility] [address] [id number] [address] [place] [address] Jun, [facility] [address] [facility] [place] [id number] [address] [place] [address] 10 May, 2009 [facility] [address] [facility] [place] [id number] [address] [place] [address] Dec, [facility] [address] [facility] [place] [id number] [address] [place] [address] Nov, [facility] [address] [facility] [place] [id number] [address] [place] [address] Oct, [facility] [address] [facility] [place] [id number] [address] [place] [address] Aug, [facility] [address] [facility] [place] [id number] [address] [place] [address] Aug, [facility] [address] [facility] [place] [id number] [address] [place] [address] Jun, IMMUNIZATIONS No Known Immunizations SOCIAL HISTORY [...] 04/2012 Hospitalization History [facility] [place]- Right wrist injury 03/29/2018
--- OUTSIDE RECORDS SUMMARY | 2020-04-09 00:20 | XMS REPORT ---
Author Author Yue Kateryna Doctor Organization [facility] Address Unknown Phone Unavailable Care Team Providers Care Stock Trader Name Role Phone Migration, Doctor Unavailable Unavailable PROBLEMS Type Condition ICD9-CM Code AXB08-PV Code Onset Dates Condition S tatus SNOMED Code Problem Irregular menses N92.6 Active 801 24375 Problem Migraine with aura and without status migrainosu s, not intractable G43.109 Active 2837942 Problem Uncontrolled type 2 diabetes mellitus with hyperglycemia E11.65 Active 573520906 Problem Morbid obesity due to excess calories E66.01 Active 854866576 Problem RLS (restless legs syndrome) G25.81 A ctive 41973084 Problem Morbid obesity E66.01 Active 56112 6002 ALLERGIES No Information ENCOUNTERS Encounter Location Date Diagnosis [facility] [address] [address] 03 Nov, 2019 [facility] [address] [address] 02 Nov, 2019 RLS (restless legs syndrome) G25.81 [facility] [address] [address] 15 Oct, 2019 [facility] [address] [facility] [id number] [address] [place] [address] 09 Oct, 2019 Influenza J11.1 [facility] [address] [address] 16 Sep, 2019 [facility] [address] [address] Sep, [facility] [address] [address] Sep, [facility] [address] [address] 13 Sep, 2019 [facility] [address] [address] 10 Sep, 2019 Pneumonia of left lower lobe due to infe ctious organism J18.9 and Migraine with aura and without status migrainosus, not intractable G43.109 [facility] [address] [address] 10 Sep, 2019 [facility] [address] [address] 10 Sep, 2019 [facility] [address] [address] 08 Sep, 2019 [facility] [address] [address] 08 Sep, 2019 [place] [address] [address] 08 Sep, 2019 Pneumonia of left lower lobe due to infe ctious organism J18.9 and Migraine with aura and without status migrainosus, not intractable G43.109 [place] [address] [address] Aug, Irregular menses N92.6 ; Well woman exam Z01.419 ; Pelvic cramping R10.2 and Left breast lump N63.20 [place] [address] [address] Aug, [place] [address] [address] Aug, Well woman exam Z01.419 ; Left breast nenita mp N63.20 ; Irregular menses N92.6 ; Encounter for immunization Z23 ; Pelvic cramping R10.2 and Screening for cervical cancer Z12.4 [place] [address] [address] Aug, [place] [address] [address] Aug, [place] [address] [address] Aug, [place] [address] [address] Jul, [facility] [address] [address] Jun, [facility] [address] [address] Jun, [facility] [address] [address] Jun, [facility] [address] [address] Jun, BMI 50.0-59.9, adult Z68.43 [place] [address] [address] Jun, [facility] [address] [facility] [id number] [address] [place] [address] May, Acute non-recurrent sinusiti s, unspecified location J01.90 ; Diarrhea, unspecified R19.7 ; Vomiting, unspecified R11.10 and Morbid obesity E66.01 [facility] [address] [address] Apr, [place] [address] [address] Apr, Anemia due to other cause, not classifie d D64.89 and D-dimer, elevated R79.89 [place] [address] [address] Apr, [facility] [address] [address] Apr, [facility] [address] [address] Mar, Anemia due to other cause, not classifie d D64.89 and D-dimer, elevated R79.89 [place] [address] [address] Mar, Leg edema, right R60.0 ; High risk medic ation use Z79.899 and Morbid obesity E66.01 [place] [address] [address] Mar, BMI 50.0-59.9, adult Z68.43 [place] [address] [address] Mar, [place] [address] [address] January, Uncontrolled type 2 diabetes mellitus wi th hyperglycemia E11.65 ; RLS (restless legs syndrome) G25.81 and Morbid obesity E66.01 [place] [address] [address] 15 Oct, 2018 Lipoma of right lower extremity D17.23 [place] [address] [address] Oct, Lipoma of right lower extremity D17.23 [place] [address] [address] Sep, [place] [address] [address] Sep, [place] [address] [address] Sep, [place] [address] [address] Sep, [place] [address] [address] Sep, [place] [address] [address] Aug, Uncontrolled type 2 diabetes mellitus wi th hyperglycemia E11.65 ; Morbid obesity due to excess calories E66.01 ; Lipoma of torso D17.1 and BMI 50.0-59.9, adult Z68.43 [place] [address] [address] Jun, Encounter for immunization Z23 [place] [address] [id number] [place] [address] Jul, [facility] [address] [place] [id number] [place] [address] Jun, Encounter for immunization Z23 [facility] [address] [id number] [place] [address] 30 May, 2016 [facility] [address] [place] [address] [id number] [place] [address] Jun, Encounter for immunization Z23 [facility] [address] [place] [id number] [place] [address] 29 May, 2015 [facility] [address] [place] [address] [id number] [place] [address] May, [facility] [address] [place] [address] [id number] [place] [address] Apr, [facility] [address] [place] [address] [id number] [place] [address] Feb, [facility] [address] [place] [address] [id number] [place] [address] Feb, [facility] [address] [place] [address] [id number] [place] [address] Feb, [facility] [address] [address] [id number] [place] [address] January, [facility] [address] [place] [address] [id number] [place] [address] January, [facility] [address] [id number] [place] [address] Dec, [facility] [address] [place] [id number] [place] [address] Dec, [facility] [address] [place] [id number] [place] [address] Nov, [facility] [address] [place] [address] [id number] [place] [address] Nov, [facility] [address] [place] [address] [id number] [place] [address] Nov, [facility] [address] [facility] [id number] [place] [address] Nov, [facility] [place] [facility] [address] [id number] [place] [address] Nov, [facility] [place] [facility] [address] [id number] [place] [address] Nov, [facility] [place] [facility] [address] [id number] [place] [address] Nov, [facility] [place] [facility] [address] [facility] [id number] [place] [address] Oct, [facility] [place] [facility] [address] [id number] [place] [address] Oct, [facility] [place] [facility] [address] [id number] [place] [address] Oct, [facility] [place] [facility] [address] [id number] [place] [address] Oct, [facility] [place] [facility] [address] [id number] [place] [address] Oct, [facility] [place] [facility] [address] [id number] [place] [address] Sep, [facility] [place] [facility] [address] [id number] [place] [address] Sep, [facility] [place] [facility] [address] [id number] [place] [address] Sep, [facility] [place] [facility] [address] [facility] [id number] [place] [address] Sep, [facility] [place] [address] [id number] [place] [address] Sep, [facility] [place] [facility] [address] [id number] [place] [address] Sep, [facility] [place] [facility] [address] [id number] [place] [address] Sep, [facility] [place] [facility] [address] [id number] [place] [address] Sep, [facility] [place] [facility] [address] [id number] [place] [address] Sep, [facility] [place] [facility] [address] [id number] [place] [address] Sep, [facility] [place] [facility] [address] [id number] [place] [address] Aug, [facility] [place] [facility] [address] [id number] [place] [address] Aug, [facility] [place] [facility] [address] [id number] [place] [address] Aug, [facility] [place] [facility] [address] [id number] [place] [address] Aug, [facility] [place] [facility] [address] [id number] [place] [address] Aug, [facility] [place] [facility] [address] [id number] [place] [address] Aug, [facility] [place] [facility] [address] [id number] [place] [address] Aug, [facility] [place] [facility] [address] [id number] [place] [address] Aug, [facility] [place] [facility] [address] [id number] [place] [address] Aug, [facility] [place] [facility] [address] [id number] [place] [address] Aug, [facility] [place] [facility] [address] [id number] [place] [address] Aug, [facility] [place] [facility] [address] [id number] [place] [address] Aug, [facility] [place] [facility] [address] [id number] [place] [address] Aug, [facility] [place] [address] [id number] [place] [address] 18 Aug, 2014 [facility] [place] [facility] [address] [id number] [place] [address] 17 Aug, 2014 [facility] [address] [id number] [place] [address] Aug, [facility] [address] [id number] [place] [address] 16 Aug, 2014 [facility] [place] [address] [id number] [place] [address] 16 Aug, 2014 [facility] [place] [facility] [address] [id number] [place] [address] Aug, [facility] [address] [id number] [place] [address] Aug, [facility] [place] [facility] [address] [id number] [place] [address] 08 Aug, 2014 [facility] [place] [facility] [address] [id number] [place] [address] Aug, [facility] [place] [facility] [address] [id number] [place] [address] 05 Aug, 2014 [facility] [place] [facility] [address] [id number] [place] [address] Aug, [facility] [address] [id number] [place] [address] Jul, [facility] [place] [facility] [address] [id number] [place] [address] Jul, [facility] [address] [id number] [place] [address] Jun, [facility] [facility] [address] [id number] [place] [address] Jun, [facility] [address] [id number] [place] [address] Jun, [facility] [address] [id number] [place] [address] Jun, [facility] [address] [id number] [place] [address] 15 Jun, 2013 [facility] [place] [facility] [address] [facility] [id number] [place] [address] 15 Jun, 2013 [facility] [address] [facility] [id number] [place] [address] 14 Jun, 2013 [facility] [address] [id number] [place] [address] 14 Jun, 2014 [facility] [address] [facility] [id number] [place] [address] 13 Jun, 2013 [facility] [address] [facility] [id number] [place] [address] 13 Jun, 2013 [facility] [place] [facility] [address] [id number] [place] [address] 13 Jun, 2013 [facility] [address] [id number] [place] [address] 13 Jun, 2013 [facility] [address] [id number] [place] [address] 06 Jun, 2013 [facility] [address] [facility] [id number] [place] [address] 06 Jun, 2014 [facility] [place] [facility] [address] [id number] [place] [address] 26 May, 2013 [facility] [address] [id number] [place] [address] 26 May, 2013 [facility] [address] [id number] [place] [address] 22 May, 2013 [facility] [address] [facility] [id number] [place] [address] 22 May, 2013 [facility] [place] [facility] [address] [id number] [place] [address] 04 Sep, 2013 [facility] [place] [facility] [address] [id number] [place] [address] 04 Sep, 2013 [facility] [place] [facility] [address] [id number] [place] [address] May, [facility] [place] [facility] [address] [facility] [id number] [place] [address] May, [facility] [place] [facility] [address] [facility] [id number] [place] [address] Apr, [facility] [place] [facility] [address] [facility] [id number] [place] [address] Apr, [facility] [place] [facility] [address] [id number] [facility] [address] Apr, [facility] [place] [facility] [address] [facility] [id number] [facility] [address] Apr, [facility] [place] [facility] [address] [id number] [place] [address] Apr, [facility] [place] [facility] [address] [id number] [place] [address] Apr, [facility] [place] [facility] [address] [id number] [place] [address] Apr, [facility] [place] [facility] [address] [id number] [place] [address] Apr, [facility] [place] [facility] [address] [id number] [place] [address] Apr, [facility] [place] [facility] [address] [id number] [place] [address] Mar, [facility] [place] [facility] [address] [id number] [place] [address] Mar, [facility] [place] [facility] [address] [id number] [place] [address] Mar, [facility] [place] [facility] [address] [facility] [id number] [place] [address] Feb, [facility] [place] [facility] [address] [id number] [place] [address] Feb, [facility] [place] [facility] [address] [id number] [place] [address] Feb, [facility] [place] [facility] [address] [id number] [place] [address] Feb, [facility] [place] [facility] [address] [facility] [id number] [facility] [address] Feb, [facility] [place] [facility] [address] [facility] [id number] [facility] [address] Feb, [facility] [place] [facility] [address] [id number] [facility] [address] Feb, [facility] [place] [facility] [address] [id number] [facility] [address] Feb, [facility] [place] [facility] [address] [facility] [id number] [facility] [address] Feb, [facility] [place] [facility] [address] [id number] [place] [address] Feb, [facility] [place] [facility] [address] [id number] [place] [address] Feb, [facility] [place] [facility] [address] [id number] [place] [address] Feb, [facility] [place] [facility] [address] [id number] [place] [address] Feb, [facility] [place] [facility] [address] [id number] [place] [address] Feb, [facility] [place] [facility] [address] [id number] [place] [address] Feb, [facility] [place] [facility] [address] [id number] [place] [address] Feb, [facility] [place] [facility] [address] [id number] [place] [address] January, [facility] [place] [facility] [address] [id number] [place] [address] January, [facility] [place] [facility] [address] [id number] [place] [address] January, [facility] [place] [facility] [address] [id number] [place] [address] January, [facility] [place] [facility] [address] [id number] [place] [address] January, [facility] [place] [facility] [address] [id number] [place] [address] January, [facility] [place] [facility] [address] [facility] [id number] [place] [address] January, [facility] [place] [facility] [address] [facility] [id number] [place] [address] January, [facility] [place] [facility] [address] [facility] [id number] [place] [address] January, [facility] [place] [facility] [address] [id number] [place] [address] January, [facility] [place] [facility] [address] [id number] [place] [address] January, [facility] [place] [facility] [address] [id number] [place] [address] January, [facility] [place] [facility] [address] [id number] [place] [address] January, [facility] [place] [facility] [address] [id number] [place] [address] January, [facility] [place] [facility] [address] [id number] [place] [address] January, [facility] [place] [facility] [address] [id number] [place] [address] January, [facility] [place] [facility] [address] [id number] [place] [address] January, [facility] [place] [facility] [address] [id number] [place] [address] January, [facility] [place] [facility] [address] [id number] [place] [address] January, [facility] [place] [facility] [address] [facility] [id number] [place] [address] January, [facility] [place] [facility] [address] [id number] [place] [address] January, [facility] [place] [facility] [address] [id number] [place] [address] January, [facility] [place] [facility] [address] [id number] [place] [address] January, [facility] [place] [facility] [address] [id number] [place] [address] January, [facility] [place] [facility] [address] [id number] [place] [address] January, [facility] [place] [facility] [address] [id number] [place] [address] January, [facility] [place] [facility] [address] [id number] [place] [address] Dec, [facility] [place] [facility] [address] [id number] [place] [address] Dec, [facility] [place] [facility] [address] [id number] [place] [address] Dec, [facility] [place] [facility] [address] [id number] [place] [address] Dec, [facility] [place] [facility] [address] [id number] [place] [address] Dec, [facility] [place] [facility] [address] [id number] [place] [address] Dec, [facility] [place] [facility] [address] [id number] [place] [address] Dec, [facility] [place] [facility] [address] [id number] [place] [address] Dec, [facility] [address] [id number] [place] [address] Dec, [facility] [place] [facility] [address] [id number] [place] [address] Dec, [facility] [place] [facility] [address] [id number] [place] [address] Dec, [facility] [place] [facility] [address] [id number] [place] [address] Dec, [facility] [place] [facility] [address] [facility] [id number] [facility] [address] Dec, [facility] [place] [facility] [address] [facility] [id number] [facility] [address] Dec, [facility] [place] [facility] [address] [id number] [facility] [address] Dec, [facility] [place] [facility] [address] [id number] [place] [address] Dec, [facility] [place] [facility] [address] [facility] [id number] [facility] [address] Dec, [facility] [place] [facility] [address] [id number] [place] [address] Dec, [facility] [place] [facility] [address] [id number] [facility] [address] Dec, [facility] [place] [facility] [address] [id number] [facility] [address] Dec, [facility] [place] [facility] [id number] [facility] [address] Dec, [facility] [place] [facility] [id number] [place] [address] Dec, [facility] [place] [facility] [id number] [place] [address] Nov, [facility] [place] [facility] [id number] [place] [address] Nov, [facility] [place] [facility] [id number] [facility] [place] [address] Nov, [facility] [place] [facility] [id number] [place] [address] Nov, [facility] [place] [facility] [id number] [place] [address] Nov, [facility] [place] [facility] [id number] [place] [address] Nov, [facility] [place] [facility] [id number] [place] [address] 22 Nov, 2013 [facility] [place] [facility] [address] [facility] [id number] [place] [address] Nov, [facility] [place] [facility] [id number] [place] [address] Nov, [facility] [place] [facility] [id number] [place] [address] 18 Nov, 2013 [facility] [place] [facility] [id number] [place] [address] 18 Nov, 2013 [facility] [place] [facility] [id number] [place] [address] Nov, [facility] [place] [facility] [id number] [place] [address] Nov, [facility] [place] [facility] [id number] [place] [address] Nov, [facility] [place] [facility] [id number] [place] [address] Nov, [facility] [place] [facility] [id number] [place] [address] Nov, [facility] [place] [facility] [id number] [place] [address] Oct, [facility] [place] [facility] [id number] [place] [address] Oct, [facility] [place] [facility] [id number] [place] [address] Oct, [facility] [place] [facility] [address] [facility] [id number] [place] [address] Oct, [facility] [place] [facility] [id number] [place] [address] 24 Oct, 2013 [facility] [place] [facility] [id number] [place] [address] Oct, [facility] [place] [facility] [id number] [place] [address] Oct, [facility] [place] [facility] [address] [facility] [id number] [place] [address] Oct, [facility] [place] [facility] [address] [facility] [id number] [place] [address] Oct, [facility] [place] [facility] [id number] [place] [address] Oct, [facility] [place] [facility] [id number] [place] [address] Oct, [facility] [place] [facility] [address] [facility] [id number] [place] [address] Oct, [facility] [place] [facility] [id number] [place] [address] Oct, [facility] [place] [facility] [id number] [place] [address] Oct, [facility] [place] [facility] [id number] [place] [address] Oct, [facility] [place] [facility] [id number] [place] [address] Sep, [facility] [place] [facility] [id number] [place] [address] Sep, [facility] [place] [facility] [id number] [place] [address] Sep, [facility] [place] [facility] [id number] [place] [address] Sep, [facility] [place] [facility] [id number] [place] [address] Sep, [facility] [place] [facility] [id number] [place] [address] Sep, [facility] [place] [facility] [id number] [place] [address] Sep, [facility] [place] [facility] [id number] [place] [address] Sep, [facility] [place] [facility] [id number] [place] [address] Sep, [facility] [place] [facility] [id number] [place] [address] Sep, [facility] [place] [facility] [id number] [place] [address] Sep, [facility] [place] [facility] [id number] [place] [address] Sep, [facility] [place] [facility] [id number] [place] [address] Sep, [facility] [place] [facility] [id number] [place] [address] Aug, [facility] [place] [facility] [id number] [place] [address] Aug, [facility] [place] [facility] [id number] [place] [address] Aug, [facility] [place] [facility] [id number] [place] [address] 24 Aug, 2013 [facility] [place] [facility] [id number] [place] [address] Aug, [facility] [place] [facility] [id number] [place] [address] 17 Aug, 2013 [facility] [place] [facility] [id number] [place] [address] 16 Aug, 2013 [facility] [place] [facility] [id number] [place] [address] 16 Aug, 2013 [facility] [place] [facility] [address] [id number] [place] [address] 12 Aug, 2013 [facility] [id number] [place] [address] 12 Aug, 2013 [facility] [id number] [place] [address] 10 Aug, 2013 [facility] [id number] [place] [address] 10 Aug, 2013 [facility] [id number] [place] [address] 02 Aug, 2013 [facility] [id number] [place] [address] Aug, [facility] [id number] [place] [address] Jul, [facility] [id number] [place] [address] Jul, [facility] [id number] [place] [address] 18 Jul, 2013 [facility] [id number] [place] [address] 18 Jul, 2013 [facility] [id number] [place] [address] 14 Jul, 2013 [facility] [id number] [place] [address] 14 Jul, 2013 [facility] [id number] [place] [address] 14 Jul, 2013 [facility] [id number] [place] [address] 14 Jul, 2013 [facility] [id number] [place] [address] 07 Jul, 2013 [facility] [id number] [place] [address] 07 Jul, 2013 [facility] [id number] [place] [address] 06 Jul, 2013 [facility] [id number] [place] [address] 06 Jul, 2013 [facility] [id number] [place] [address] 05 Jul, 2013 [facility] [id number] [place] [address] 05 Jul, 2013 [facility] [id number] [place] [address] 23 Jun, 2013 [facility] [address] [id number] [place] [address] 23 Jun, 2013 [facility] [id number] [place] [address] 15 Jun, 2013 [facility] [id number] [place] [address] 15 Jun, 2013 [facility] [id number] [place] [address] 14 Jun, 2013 [facility] [address] [place] [id number] [place] [address] 24 May, 2012 [facility] [id number] [place] [address] 20 May, 2012 [facility] [id number] [place] [address] 20 May, 2012 [facility] [id number] [place] [address] 20 May, 2012 [facility] [id number] [place] [address] 19 May, 2012 [facility] [id number] [place] [address] 13 May, 2012 [facility] [id number] [place] [address] 12 May, 2012 [facility] [id number] [place] [address] 12 May, 2012 [facility] [address] [place] [id number] [place] [address] 11 May, 2012 [facility] [id number] [place] [address] 11 May, 2012 [facility] [id number] [place] [address] 11 May, 2012 [facility] [id number] [place] [address] 09 Sep, 2012 [facility] [address] [id number] [place] [address] May, [facility] [address] [id number] [facility] [address] May, [facility] [id number] [facility] [place] [address] May, [facility] [id number] [place] [address] Apr, [facility] [address] [facility] [id number] [place] [address] Apr, [facility] [address] [id number] [place] [address] Apr, [facility] [id number] [place] [address] Apr, [facility] [id number] [place] [address] Apr, [facility] [id number] [place] [address] Apr, [facility] [address] [id number] [place] [address] Apr, [facility] [id number] [place] [address] Apr, [facility] [id number] [place] [address] Apr, [facility] [address] [id number] [place] [address] Mar, [facility] [address] [id number] [place] [address] Mar, [facility] [address] [id number] [place] [address] Mar, [facility] [id number] [place] [address] Mar, [facility] [id number] [place] [address] Mar, [facility] [address] [facility] [id number] [place] [address] Mar, [facility] [address] [facility] [id number] [facility] [place] [address] Mar, [facility] [id number] [place] [address] Mar, [facility] [id number] [facility] [place] [address] Mar, [facility] [address] [facility] [id number] [place] [address] Mar, [facility] [id number] [place] [address] Mar, [facility] [id number] [place] [address] Feb, [facility] [id number] [place] [address] Feb, [facility] [id number] [place] [address] Feb, [facility] [id number] [place] [address] Feb, [facility] [id number] [place] [address] Feb, [facility] [id number] [place] [address] Feb, [facility] [address] [facility] [id number] [place] [address] Feb, [facility] [id number] [place] [address] Feb, [facility] [id number] [place] [address] Feb, [facility] [id number] [place] [address] January, [facility] [id number] [facility] [address] January, [facility] [address] [id number] [place] [address] January, [facility] [id number] [place] [address] January, [facility] [address] [id number] [place] [address] January, [facility] [address] [id number] [place] [address] January, [facility] [address] [id number] [place] [address] January, [facility] [id number] [place] [address] January, [facility] [id number] [place] [address] January, [facility] [address] [id number] [place] [address] January, [facility] [address] [id number] [place] [address] January, [facility] [id number] [place] [address] January, [facility] [id number] [place] [address] January, [facility] [address] [id number] [place] [address] January, [facility] [address] [id number] [place] [address] January, [facility] [address] [id number] [place] [address] January, [facility] [id number] [place] [address] January, [facility] [id number] [place] [address] January, [facility] [id number] [place] [address] January, [facility] [id number] [place] [address] January, [facility] [id number] [place] [address] January, [facility] [id number] [place] [address] January, [facility] [id number] [place] [address] January, [facility] [id number] [place] [address] Dec, [facility] [id number] [place] [address] Dec, [facility] [id number] [place] [address] Dec, [facility] [id number] [place] [address] Dec, [facility] [id number] [place] [address] Dec, [facility] [id number] [place] [address] Nov, [facility] [id number] [place] [address] Oct, [facility] [id number] [place] [address] Oct, [facility] [id number] [place] [address] Oct, [facility] [id number] [place] [address] Oct, [facility] [id number] [place] [address] Oct, [facility] [id number] [place] [address] Sep, [facility] [id number] [place] [address] Sep, [facility] [id number] [place] [address] Sep, [facility] [id number] [place] [address] Aug, [facility] [id number] [place] [address] Aug, [facility] [id number] [place] [address] Aug, [facility] [id number] [place] [address] Aug, [facility] [id number] [place] [address] Jul, [facility] [id number] [place] [address] Jul, [facility] [id number] [place] [address] Jul, [facility] [id number] [place] [address] Jul, [facility] [id number] [place] [address] Jul, [facility] [id number] [place] [address] Jul, [facility] [id number] [place] [address] Jun, [facility] [id number] [place] [address] 18 Jun, 2012 [facility] [id number] [place] [address] Jun, [facility] [id number] [place] [address] Jun, [facility] [id number] [place] [address] Jun, 2011 [facility] [address] [id number] [place] [address] Jun, [facility] [id number] [place] [address] Jun, [facility] [id number] [place] [address] Jun, [facility] [id number] [place] [address] Jun, [facility] [id number] [place] [address] Jun, [facility] [id number] [place] [address] May, [facility] [id number] [place] [address] May, [facility] [id number] [place] [address] May, [facility] [id number] [place] [address] 30 Apr, 2012 [facility] [id number] [place] [address] Apr, [facility] [id number] [place] [address] Apr, [facility] [id number] [place] [address] Apr, [facility] [id number] [place] [address] Apr, [facility] [id number] [place] [address] Apr, [facility] [id number] [place] [address] Apr, [facility] [id number] [place] [address] Apr, [facility] [id number] [place] [address] Apr, [facility] [id number] [place] [address] Mar, [facility] [id number] [place] [address] Mar, [facility] [id number] [place] [address] Mar, [facility] [id number] [place] [address] Mar, [facility] [id number] [place] [address] Feb, [facility] [id number] [place] [address] Feb, [facility] [id number] [place] [address] Feb, [facility] [id number] [place] [address] January, [facility] [id number] [place] [address] January, [facility] [id number] [place] [address] January, [facility] [id number] [place] [address] January, [facility] [id number] [place] [address] January, [facility] [id number] [place] [address] Dec, [facility] [id number] [place] [address] Dec, [facility] [id number] [place] [address] 16 Dec, 2011 [facility] [id number] [place] [address] Oct, [facility] [id number] [place] [address] Oct, [facility] [id number] [place] [address] Oct, [facility] [id number] [place] [address] Sep, [facility] [id number] [place] [address] Sep, [facility] [id number] [place] [address] Aug, [facility] [id number] [place] [address] Jul, [facility] [id number] [place] [address] Jul, [facility] [id number] [place] [address] Mar, [facility] [id number] [place] [address] Aug, [facility] [id number] [place] [address] Jul, [facility] [id number] [place] [address] Jul, [facility] [id number] [place] [address] Jul, [facility] [id number] [place] [address] Jul, [facility] [id number] [place] [address] 14 Jun, 2010 [facility] [id number] [place] [address] Jun, [facility] [id number] [place] [address] Apr, [facility] [id number] [place] [address] 11 Aug, 2009 [facility] [id number] [place] [address] Jul, [facility] [id number] [place] [address] Jul, [facility] [id number] [place] [address] Jul, [facility] [id number] [place] [address] Jun, [facility] [id number] [place] [address] 10 May, 2009 [facility] [id number] [place] [address] 14 Dec, 2008 [facility] [id number] [place] [address] Nov, [facility] [id number] [place] [address] Oct, [facility] [id number] [place] [address] Aug, [facility] [id number] [place] [address] Aug, [facility] [id number] [place] [address] Jun, IMMUNIZATIONS No Known Immunizations SOCIAL HISTORY [...] x 3 day s 04/2012 Hospitalization History [facility] [place]- Right wrist injury 03/29/2018
--- OUTSIDE RECORDS SUMMARY | 2020-04-09 00:21 | XMS REPORT ---
Author Author Kateryna LAURENT Organization [facility] Address [address] [place] [address] Care Team Providers Care Flight Coordinator Name Role Phone YAMILETH LAURENT Unavailable PROBLEMS Type Condition ICD9-CM Code QUN90-MD Code Onset Dates Condition S tatus SNOMED Code Problem Irregular menses N92.6 Active 801 34399 Problem Migraine with aura and without status migrainosu s, not intractable G43.109 Active 2321250 Problem Uncontrolled type 2 diabetes mellitus with hyperglycemia E11.65 Active 850471898 Problem Morbid obesity due to excess calories E66.01 Active 073014521 Problem RLS (restless legs syndrome) G25.81 A ctive 44504536 Problem Morbid obesity E66.01 Active 81825 6002 ALLERGIES No Information ENCOUNTERS Encounter Location Date Diagnosis [facility] [address] [address] Nov, [facility] [address] [address] 02 Nov, 2019 RLS (restless legs syndrome) G25.81 [facility] [id number] [place] [address] 15 Oct, 2019 [facility] [address] [facility] [id number] [place] [address] 09 Oct, 2019 Influenza J11.1 [facility] [id number] [place] [address] Sep, [facility] [address] [address] Sep, [facility] [id number] [place] [address] Sep, [facility] [address] [address] 13 Sep, 2019 [facility] [address] [address] 10 Sep, 2019 Pneumonia of left lower lobe due to infe ctious organism J18.9 and Migraine with aura and without status migrainosus, not intractable G43.109 [facility] [address] [address] 10 Sep, 2019 [facility] [address] [address] 10 Sep, 2019 [facility] [address] [address] 08 Sep, 2019 [place] [address] [address] 08 Sep, 2019 [place] [address] [address] 08 Sep, 2019 Pneumonia of left lower lobe due to infe ctious organism J18.9 and Migraine with aura and without status migrainosus, not intractable G43.109 [place] [address] [address] 31 Aug, 2019 Irregular menses N92.6 ; Well woman exam Z01.419 ; Pelvic cramping R10.2 and Left breast lump N63.20 [place] [address] [address] Aug, [place] [address] [address] Aug, Well woman exam Z01.419 ; Left breast nenita mp N63.20 ; Irregular menses N92.6 ; Encounter for immunization Z23 ; Pelvic cramping R10.2 and Screening for cervical cancer Z12.4 [place] [address] [address] Aug, [place] [address] [address] Aug, [place] [id number] [place] [address] Aug, [facility] [id number] [place] [address] Jul, [facility] [id number] [place] [address] Jun, [facility] [address] [address] Jun, [facility] [address] [address] Jun, [facility] [address] [address] Jun, BMI 50.0-59.9, adult Z68.43 [facility] [id number] [place] [address] Jun, [facility] [address] [facility] [id number] [address] [place] [address] May, Acute non-recurrent sinusiti s, unspecified location J01.90 ; Diarrhea, unspecified R19.7 ; Vomiting, unspecified R11.10 and Morbid obesity E66.01 [facility] [id number] [place] [address] Apr, [facility] [address] [address] Apr, Anemia due to other cause, not classifie d D64.89 and D-dimer, elevated R79.89 [facility] [id number] [place] [address] Apr, [facility] [address] [address] Apr, [facility] [address] [address] Mar, Anemia due to other cause, not classifie d D64.89 and D-dimer, elevated R79.89 [facility] [address] [address] Mar, Leg edema, right R60.0 ; High risk medic ation use Z79.899 and Morbid obesity E66.01 [place] [address] [address] Mar, BMI 50.0-59.9, adult Z68.43 [place] [address] [address] Mar, [place] [address] [address] January, Uncontrolled type 2 diabetes mellitus wi th hyperglycemia E11.65 ; RLS (restless legs syndrome) G25.81 and Morbid obesity E66.01 [place] [address] [address] Oct, Lipoma of right lower extremity D17.23 [place] [address] [address] Oct, Lipoma of right lower extremity D17.23 [place] [address] [address] Sep, [place] [address] [address] Sep, [place] [address] [address] Sep, [place] [address] [address] Sep, [place] [address] [address] Sep, [place] [address] [address] Aug, Uncontrolled type 2 diabetes mellitus wi th hyperglycemia E11.65 ; Morbid obesity due to excess calories E66.01 ; Lipoma of torso D17.1 and BMI 50.0-59.9, adult Z68.43 [place] [address] [place] [address] Jun, Encounter for immunization Z23 [facility] [id number] [place] [address] Jul, [facility] [id number] [place] [address] Jun, Encounter for immunization Z23 [facility] [place] [facility] [id number] [place] [address] May, [facility] [id number] [place] [address] Jun, Encounter for immunization Z23 [facility] [id number] [place] [address] May, [facility] [id number] [place] [address] May, [facility] [id number] [place] [address] Apr, [facility] [id number] [place] [address] Feb, [facility] [id number] [place] [address] Feb, [facility] [id number] [place] [address] Feb, [facility] [id number] [place] [address] January, [facility] [id number] [place] [address] January, [facility] [id number] [place] [address] Dec, [facility] [id number] [place] [address] Dec, [facility] [id number] [place] [address] Nov, [facility] [id number] [place] [address] Nov, [facility] [place] [facility] [address] [facility] [id number] [place] [address] Nov, [facility] [place] [facility] [address] [facility] [id number] [place] [address] Nov, [facility] [place] [facility] [address] [id number] [place] [address] Nov, [facility] [place] [facility] [address] [facility] [id number] [place] [address] Nov, [facility] [place] [facility] [address] [facility] [id number] [place] [address] Nov, [facility] [place] [facility] [address] [id number] [place] [address] Oct, [facility] [place] [facility] [address] [id number] [place] [address] Oct, [facility] [place] [facility] [address] [id number] [place] [address] Oct, [facility] [place] [facility] [address] [id number] [place] [address] Oct, [facility] [place] [facility] [address] [id number] [place] [address] Oct, [facility] [place] [facility] [address] [id number] [place] [address] Sep, [facility] [place] [facility] [address] [id number] [place] [address] Sep, [facility] [place] [facility] [address] [facility] [id number] [place] [address] Sep, [facility] [place] [facility] [address] [id number] [place] [address] Sep, [facility] [place] [facility] [address] [id number] [place] [address] Sep, [facility] [place] [facility] [address] [id number] [place] [address] Sep, [facility] [place] [facility] [address] [id number] [place] [address] Sep, [facility] [place] [facility] [address] [id number] [place] [address] Sep, [facility] [place] [facility] [address] [id number] [place] [address] Sep, [facility] [place] [facility] [address] [id number] [place] [address] Sep, [facility] [place] [facility] [address] [id number] [place] [address] Aug, [facility] [place] [facility] [address] [id number] [place] [address] Aug, [facility] [place] [facility] [address] [id number] [place] [address] Aug, [facility] [place] [facility] [address] [id number] [place] [address] Aug, [facility] [place] [facility] [address] [id number] [place] [address] Aug, [facility] [place] [facility] [address] [id number] [place] [address] Aug, [facility] [place] [facility] [address] [id number] [place] [address] Aug, [facility] [place] [facility] [address] [id number] [place] [address] Aug, [facility] [place] [facility] [address] [id number] [place] [address] Aug, [facility] [place] [facility] [address] [id number] [place] [address] Aug, [facility] [place] [facility] [address] [id number] [place] [address] Aug, [facility] [place] [facility] [address] [id number] [place] [address] Aug, [facility] [place] [facility] [address] [id number] [place] [address] 18 Aug, 2014 [facility] [place] [facility] [address] [id number] [place] [address] 18 Aug, 2014 [facility] [place] [facility] [address] [id number] [place] [address] 17 Aug, 2014 [facility] [place] [facility] [address] [id number] [place] [address] 17 Aug, 2014 [facility] [place] [facility] [address] [id number] [place] [address] 16 Aug, 2014 [facility] [place] [facility] [address] [id number] [place] [address] 16 Aug, 2014 [facility] [place] [facility] [address] [id number] [place] [address] Aug, [facility] [place] [facility] [address] [id number] [place] [address] Aug, [facility] [place] [facility] [address] [id number] [place] [address] 08 Aug, 2014 [facility] [place] [facility] [address] [id number] [place] [address] 08 Aug, 2014 [facility] [place] [facility] [address] [id number] [place] [address] 05 Aug, 2014 [facility] [place] [facility] [address] [id number] [place] [address] 05 Aug, 2014 [facility] [place] [facility] [address] [id number] [place] [address] Jul, [facility] [place] [facility] [address] [id number] [place] [address] Jul, [facility] [place] [facility] [address] [id number] [place] [address] Jun, [facility] [place] [facility] [address] [id number] [place] [address] Jun, [facility] [place] [facility] [address] [id number] [place] [address] Jun, [facility] [place] [facility] [address] [id number] [place] [address] 17 Jun, 2014 [facility] [place] [facility] [address] [facility] [id number] [place] [address] 15 Jun, 2014 [facility] [place] [facility] [address] [id number] [place] [address] 15 Jun, 2014 [facility] [place] [facility] [address] [id number] [place] [address] 14 Jun, 2014 [facility] [place] [facility] [address] [id number] [place] [address] 14 Jun, 2014 [facility] [place] [facility] [address] [id number] [place] [address] 13 Jun, 2014 [facility] [place] [facility] [address] [id number] [place] [address] 13 Jun, 2014 [facility] [place] [facility] [address] [id number] [place] [address] 13 Jun, 2014 [facility] [place] [facility] [address] [id number] [place] [address] Jun, [facility] [place] [facility] [address] [id number] [place] [address] 06 Jun, 2014 [facility] [place] [facility] [address] [id number] [place] [address] Jun, [facility] [place] [facility] [address] [id number] [place] [address] 26 May, 2013 [facility] [place] [facility] [address] [id number] [place] [address] 26 May, 2013 [facility] [place] [facility] [address] [id number] [place] [address] 22 May, 2013 [facility] [place] [facility] [address] [id number] [place] [address] 22 May, 2013 [facility] [place] [facility] [address] [id number] [place] [address] May, 2013 [facility] [place] [facility] [address] [id number] [place] [address] 04 May, 2014 [facility] [place] [facility] [address] [id number] [place] [address] May, [facility] [place] [facility] [address] [facility] [id number] [place] [address] May, [facility] [place] [facility] [address] [id number] [place] [address] Apr, [facility] [place] [facility] [address] [id number] [place] [address] Apr, [facility] [place] [facility] [address] [facility] [id number] [place] [address] Apr, [facility] [place] [facility] [address] [id number] [place] [address] Apr, [facility] [place] [facility] [address] [id number] [place] [address] Apr, [facility] [place] [facility] [address] [id number] [place] [address] Apr, [facility] [place] [facility] [address] [id number] [place] [address] Apr, [facility] [place] [facility] [address] [id number] [place] [address] Apr, [facility] [place] [facility] [address] [id number] [place] [address] Apr, [facility] [place] [facility] [address] [id number] [place] [address] Mar, [facility] [place] [facility] [address] [id number] [place] [address] Mar, [facility] [place] [facility] [address] [facility] [id number] [place] [address] Mar, [facility] [place] [facility] [address] [id number] [place] [address] Feb, [facility] [place] [facility] [address] [id number] [place] [address] Feb, [facility] [place] [facility] [address] [id number] [place] [address] Feb, [facility] [place] [facility] [address] [facility] [id number] [place] [address] Feb, [facility] [place] [facility] [address] [facility] [id number] [facility] [place] [address] Feb, [facility] [place] [facility] [address] [facility] [id number] [place] [address] Feb, [facility] [place] [facility] [address] [facility] [id number] [place] [address] Feb, [facility] [place] [facility] [address] [facility] [id number] [facility] [place] [address] Feb, [facility] [place] [facility] [address] [facility] [id number] [place] [address] Feb, [facility] [place] [facility] [address] [id number] [place] [address] Feb, [facility] [place] [facility] [address] [id number] [place] [address] Feb, [facility] [place] [facility] [address] [facility] [id number] [place] [address] Feb, [facility] [place] [facility] [address] [id number] [place] [address] Feb, [facility] [place] [facility] [address] [id number] [place] [address] Feb, [facility] [place] [facility] [address] [id number] [place] [address] Feb, [facility] [place] [facility] [address] [facility] [id number] [place] [address] Feb, [facility] [place] [facility] [address] [facility] [id number] [place] [address] January, [facility] [place] [facility] [address] [facility] [id number] [place] [address] January, [facility] [place] [facility] [address] [id number] [place] [address] January, [facility] [place] [facility] [address] [facility] [id number] [place] [address] January, [facility] [place] [facility] [address] [id number] [place] [address] January, [facility] [place] [facility] [address] [facility] [id number] [place] [address] January, [facility] [place] [facility] [address] [id number] [place] [address] January, [facility] [place] [facility] [address] [id number] [place] [address] January, [facility] [place] [facility] [address] [id number] [place] [address] January, [facility] [place] [facility] [address] [id number] [place] [address] January, [facility] [place] [facility] [address] [id number] [place] [address] January, [facility] [place] [facility] [address] [id number] [place] [address] January, [facility] [place] [facility] [address] [id number] [place] [address] January, [facility] [place] [facility] [address] [id number] [place] [address] January, [facility] [place] [facility] [address] [id number] [place] [address] January, [facility] [place] [facility] [address] [id number] [place] [address] January, [facility] [place] [facility] [address] [id number] [place] [address] January, [facility] [place] [facility] [address] [id number] [place] [address] January, [facility] [place] [facility] [address] [id number] [place] [address] January, [facility] [place] [facility] [address] [id number] [place] [address] January, [facility] [place] [facility] [address] [id number] [place] [address] January, [facility] [place] [facility] [address] [id number] [place] [address] January, [facility] [place] [facility] [address] [id number] [place] [address] January, [facility] [place] [facility] [address] [id number] [place] [address] January, [facility] [place] [facility] [address] [id number] [place] [address] January, [facility] [place] [facility] [address] [id number] [place] [address] January, [facility] [place] [facility] [address] [id number] [place] [address] Dec, [facility] [place] [facility] [address] [id number] [place] [address] Dec, [facility] [place] [facility] [address] [id number] [place] [address] Dec, [facility] [place] [facility] [address] [id number] [place] [address] Dec, [facility] [place] [facility] [address] [id number] [place] [address] Dec, [facility] [place] [facility] [address] [id number] [place] [address] Dec, [facility] [place] [facility] [address] [id number] [place] [address] Dec, [facility] [place] [facility] [address] [id number] [place] [address] Dec, [facility] [place] [facility] [address] [id number] [place] [address] Dec, [facility] [place] [facility] [address] [id number] [place] [address] Dec, [facility] [place] [facility] [address] [id number] [place] [address] Dec, [facility] [place] [facility] [address] [facility] [id number] [facility] [place] [address] Dec, [facility] [place] [facility] [address] [facility] [id number] [facility] [place] [address] Dec, [facility] [place] [facility] [address] [facility] [id number] [place] [address] 14 Dec, 2013 [facility] [place] [facility] [address] [facility] [id number] [facility] [place] [address] Dec, [facility] [place] [facility] [address] [facility] [id number] [facility] [place] [address] Dec, [facility] [place] [facility] [address] [id number] [place] [address] Dec, [facility] [place] [facility] [address] [id number] [place] [address] Dec, [facility] [place] [facility] [address] [id number] [place] [address] Dec, [facility] [place] [facility] [address] [facility] [id number] [place] [address] Dec, [facility] [place] [facility] [address] [id number] [place] [address] Dec, [facility] [place] [facility] [address] [id number] [place] [address] Dec, [facility] [place] [facility] [address] [id number] [place] [address] Nov, [facility] [place] [facility] [address] [facility] [id number] [place] [address] Nov, [facility] [place] [facility] [address] [facility] [id number] [place] [address] Nov, [facility] [place] [facility] [address] [facility] [id number] [place] [address] Nov, [facility] [place] [facility] [address] [id number] [place] [address] 24 Nov, 2013 [facility] [place] [facility] [address] [id number] [place] [address] 24 Nov, 2013 [facility] [place] [facility] [address] [facility] [id number] [place] [address] Nov, [facility] [place] [facility] [address] [id number] [place] [address] Nov, [facility] [place] [facility] [address] [id number] [place] [address] 18 Nov, 2013 [facility] [place] [facility] [address] [id number] [place] [address] 18 Nov, 2013 [facility] [place] [facility] [address] [id number] [place] [address] 18 Nov, 2013 [facility] [place] [facility] [address] [id number] [place] [address] 18 Nov, 2013 [facility] [place] [facility] [address] [id number] [place] [address] 14 Nov, 2013 [facility] [place] [facility] [address] [id number] [place] [address] 14 Nov, 2013 [facility] [place] [facility] [address] [id number] [place] [address] Nov, [facility] [place] [facility] [address] [id number] [place] [address] Nov, [facility] [place] [facility] [address] [id number] [place] [address] Oct, [facility] [place] [facility] [address] [id number] [place] [address] Oct, [facility] [place] [facility] [address] [id number] [place] [address] Oct, [facility] [place] [facility] [address] [id number] [place] [address] Oct, [facility] [place] [facility] [address] [id number] [place] [address] Oct, [facility] [place] [facility] [address] [id number] [place] [address] Oct, [facility] [place] [facility] [address] [facility] [id number] [facility] [place] [address] Oct, [facility] [place] [facility] [address] [id number] [facility] [place] [address] Oct, [facility] [place] [facility] [address] [id number] [facility] [place] [address] Oct, [facility] [place] [facility] [address] [id number] [place] [address] Oct, [facility] [address] [facility] [id number] [facility] [place] [address] Oct, [facility] [address] [id number] [place] [address] Oct, [facility] [address] [id number] [place] [address] Oct, [facility] [address] [id number] [place] [address] Oct, [facility] [address] [id number] [place] [address] Oct, [facility] [address] [id number] [place] [address] Sep, [facility] [address] [id number] [place] [address] Sep, [facility] [address] [id number] [place] [address] Sep, [facility] [address] [id number] [place] [address] Sep, [facility] [address] [id number] [place] [address] Sep, [facility] [address] [id number] [place] [address] Sep, [facility] [address] [id number] [place] [address] Sep, [facility] [address] [id number] [place] [address] 10 Sep, 2013 [facility] [address] [id number] [place] [address] Sep, [facility] [address] [id number] [place] [address] Sep, [facility] [address] [id number] [place] [address] Sep, [facility] [address] [id number] [place] [address] Sep, [facility] [address] [id number] [place] [address] Sep, [facility] [address] [id number] [place] [address] Aug, [facility] [address] [id number] [place] [address] 30 Aug, 2013 [facility] [address] [id number] [place] [address] Aug, [facility] [address] [id number] [place] [address] 24 Aug, 2013 [facility] [address] [id number] [place] [address] Aug, [facility] [address] [id number] [place] [address] 17 Aug, 2013 [facility] [address] [id number] [place] [address] 16 Aug, 2013 [facility] [address] [id number] [place] [address] 16 Aug, 2013 [facility] [address] [id number] [place] [address] 12 Aug, 2013 [facility] [address] [id number] [place] [address] 12 Aug, 2013 [facility] [address] [id number] [place] [address] 10 Aug, 2013 [facility] [address] [id number] [place] [address] 10 Aug, 2012 [facility] [address] [id number] [place] [address] 02 Aug, 2013 [facility] [address] [id number] [place] [address] 02 Aug, 2013 [facility] [address] [id number] [place] [address] Jul, [facility] [address] [id number] [place] [address] 19 Jul, 2013 [facility] [address] [id number] [place] [address] 18 Jul, 2013 [facility] [address] [id number] [place] [address] 18 Jul, 2013 [facility] [id number] [place] [address] 14 Jul, 2013 [facility] [address] [id number] [place] [address] 14 Jul, 2013 [facility] [address] [id number] [place] [address] 14 Jul, 2013 [facility] [address] [id number] [place] [address] 14 Jul, 2013 [facility] [address] [id number] [place] [address] 07 Jul, 2013 [facility] [address] [id number] [place] [address] 07 Jul, 2013 [facility] [address] [id number] [place] [address] 06 Jul, 2013 [facility] [address] [id number] [place] [address] 06 Jul, 2013 [facility] [address] [id number] [place] [address] 05 Jul, 2012 [facility] [address] [id number] [place] [address] 05 Jul, 2013 [facility] [address] [facility] [id number] [place] [address] 23 Jun, 2013 [facility] [address] [facility] [id number] [place] [address] 23 Jun, 2013 [facility] [address] [id number] [place] [address] 15 Jun, 2013 [facility] [address] [facility] [id number] [place] [address] 15 Jun, 2013 [facility] [address] [facility] [id number] [place] [address] 14 Jun, 2013 [facility] [address] [id number] [place] [address] 24 May, 2012 [facility] [address] [id number] [place] [address] 20 May, 2012 [facility] [address] [id number] [place] [address] 20 May, 2012 [facility] [address] [facility] [id number] [place] [address] 20 May, 2012 [facility] [address] [id number] [place] [address] 19 May, 2012 [facility] [address] [id number] [place] [address] 13 May, 2012 [facility] [address] [id number] [place] [address] 12 Sep, 2012 [facility] [address] [facility] [id number] [place] [address] 12 Sep, 2012 [facility] [address] [id number] [place] [address] 11 May, 2012 [facility] [address] [facility] [id number] [place] [address] 11 May, 2012 [facility] [address] [id number] [place] [address] 11 May, 2012 [facility] [address] [id number] [facility] [place] [address] 09 May, 2012 [facility] [address] [id number] [facility] [place] [address] 05 May, 2012 [facility] [address] [facility] [id number] [facility] [place] [address] May, [facility] [address] [id number] [place] [address] May, [facility] [address] [facility] [id number] [facility] [place] [address] Apr, [facility] [address] [id number] [place] [address] Apr, [facility] [address] [id number] [place] [address] Apr, [facility] [address] [id number] [place] [address] Apr, [facility] [address] [id number] [place] [address] Apr, [facility] [address] [id number] [place] [address] Apr, [facility] [address] [id number] [place] [address] Apr, [facility] [address] [id number] [place] [address] Apr, [facility] [address] [id number] [place] [address] Apr, [facility] [address] [id number] [place] [address] Mar, [facility] [address] [id number] [place] [address] Mar, [facility] [address] [id number] [place] [address] Mar, [facility] [address] [id number] [place] [address] Mar, [facility] [address] [facility] [id number] [place] [address] Mar, 2012 [facility] [address] [id number] [place] [address] Mar, 2012 [facility] [address] [id number] [place] [address] Mar, 2012 [facility] [address] [id number] [place] [address] Mar, 2012 [facility] [address] [facility] [id number] [place] [address] Mar, 2012 [facility] [address] [id number] [place] [address] Mar, [facility] [address] [id number] [place] [address] Mar, [facility] [address] [id number] [place] [address] Feb, [facility] [address] [id number] [place] [address] Feb, [facility] [address] [id number] [place] [address] Feb, [facility] [address] [id number] [place] [address] Feb, [facility] [address] [id number] [place] [address] Feb, [facility] [address] [id number] [place] [address] Feb, [facility] [address] [id number] [place] [address] Feb, [facility] [address] [id number] [place] [address] Feb, [facility] [address] [id number] [place] [address] Feb, [facility] [address] [id number] [place] [address] January, [facility] [address] [id number] [facility] [place] [address] January, [facility] [address] [facility] [id number] [facility] [place] [address] January, [facility] [address] [id number] [facility] [place] [address] January, [facility] [address] [id number] [facility] [place] [address] January, [facility] [address] [facility] [id number] [facility] [place] [address] January, [facility] [address] [id number] [facility] [place] [address] January, [facility] [address] [id number] [place] [address] January, [facility] [address] [id number] [place] [address] January, [facility] [address] [facility] [id number] [facility] [place] [address] January, [facility] [address] [id number] [place] [address] January, [facility] [address] [id number] [place] [address] January, [facility] [address] [id number] [place] [address] January, [facility] [address] [facility] [id number] [facility] [place] [address] January, [facility] [address] [id number] [place] [address] January, [facility] [address] [id number] [facility] [place] [address] January, [facility] [address] [id number] [facility] [place] [address] January, [facility] [address] [id number] [place] [address] January, [facility] [address] [id number] [place] [address] January, [facility] [address] [id number] [place] [address] January, [facility] [address] [id number] [place] [address] January, [facility] [address] [id number] [place] [address] January, [facility] [address] [id number] [place] [address] January, [facility] [address] [id number] [place] [address] Dec, [facility] [address] [id number] [place] [address] Dec, [facility] [address] [id number] [place] [address] Dec, [facility] [address] [id number] [place] [address] Dec, [facility] [address] [id number] [place] [address] Dec, [facility] [address] [id number] [place] [address] Nov, [facility] [address] [id number] [place] [address] Oct, [facility] [address] [id number] [place] [address] Oct, [facility] [address] [id number] [place] [address] Oct, [facility] [address] [id number] [place] [address] Oct, [facility] [address] [id number] [place] [address] Oct, [facility] [address] [id number] [place] [address] Sep, [facility] [address] [id number] [place] [address] Sep, [facility] [address] [id number] [place] [address] Sep, [facility] [address] [id number] [place] [address] Aug, [facility] [address] [id number] [place] [address] Aug, [facility] [address] [id number] [place] [address] Aug, [facility] [address] [id number] [place] [address] Aug, [facility] [address] [id number] [place] [address] Jul, [facility] [address] [id number] [place] [address] Jul, [facility] [id number] [place] [address] Jul, [facility] [address] [id number] [place] [address] Jul, [facility] [address] [id number] [place] [address] Jul, [facility] [address] [id number] [place] [address] Jul, [facility] [address] [id number] [place] [address] Jun, [facility] [address] [id number] [place] [address] Jun, [facility] [address] [id number] [place] [address] Jun, [facility] [address] [id number] [place] [address] Jun, [facility] [address] [id number] [place] [address] Jun, [facility] [address] [id number] [place] [address] Jun, [facility] [address] [id number] [place] [address] Jun, [facility] [address] [id number] [place] [address] Jun, [facility] [address] [id number] [place] [address] Jun, [facility] [address] [id number] [place] [address] Jun, [facility] [address] [id number] [place] [address] May, [facility] [address] [id number] [place] [address] May, [facility] [address] [id number] [place] [address] May, [facility] [address] [id number] [place] [address] Apr, [facility] [address] [id number] [place] [address] Apr, [facility] [address] [id number] [place] [address] Apr, [facility] [address] [id number] [place] [address] Apr, [facility] [address] [id number] [place] [address] Apr, [facility] [address] [id number] [place] [address] Apr, [facility] [address] [id number] [place] [address] Apr, [facility] [address] [id number] [place] [address] Apr, [facility] [address] [id number] [place] [address] Apr, [facility] [address] [id number] [place] [address] Mar, [facility] [address] [id number] [place] [address] Mar, [facility] [address] [id number] [place] [address] Mar, [facility] [address] [id number] [place] [address] Mar, [facility] [address] [id number] [place] [address] Feb, [facility] [address] [id number] [place] [address] Feb, [facility] [address] [id number] [place] [address] Feb, [facility] [address] [id number] [place] [address] January, [facility] [address] [id number] [place] [address] January, [facility] [address] [id number] [place] [address] January, [facility] [address] [id number] [place] [address] January, [facility] [address] [id number] [place] [address] January, [facility] [address] [id number] [place] [address] Dec, [facility] [address] [id number] [place] [address] Dec, [facility] [address] [id number] [place] [address] Dec, [facility] [address] [id number] [place] [address] Oct, [facility] [address] [id number] [place] [address] Oct, [facility] [address] [id number] [place] [address] Oct, [facility] [address] [id number] [place] [address] Sep, [facility] [address] [id number] [place] [address] Sep, [facility] [address] [id number] [place] [address] Aug, [facility] [address] [id number] [place] [address] Jul, [facility] [address] [id number] [place] [address] Jul, [facility] [address] [id number] [place] [address] Mar, [facility] [address] [id number] [place] [address] Aug, [facility] [address] [id number] [place] [address] Jul, [facility] [address] [id number] [place] [address] Jul, [facility] [address] [id number] [place] [address] Jul, [facility] [address] [id number] [place] [address] Jul, [facility] [address] [id number] [place] [address] 14 Jun, 2010 [facility] [address] [id number] [place] [address] Jun, [facility] [address] [id number] [place] [address] Apr, [facility] [address] [id number] [place] [address] Aug, [facility] [id number] [place] [address] Jul, [facility] [id number] [place] [address] Jul, [facility] [id number] [place] [address] Jul, [facility] [id number] [place] [address] Jun, [facility] [id number] [place] [address] May, [facility] [id number] [place] [address] 14 Dec, 2008 [facility] [id number] [place] [address] Nov, [facility] [id number] [place] [address] Oct, [facility] [id number] [place] [address] Aug, [facility] [id number] [place] [address] Aug, [facility] [id number] [place] [address] Jun, IMMUNIZATIONS No Known Immunizations SOCIAL HISTORY Never Assessed REASON FOR VISIT PLAN OF CARE VITAL SIGNS MEDICATIONS Unknown Medications RESULTS No Results PROCEDURES Procedure Date Ordered Result Body Site BASIC METABOLIC PANEL December 13, 2013 VENIPUNCT, ROUTINE* December 13, 2013 INSTRUCTIONS MEDICATIONS ADMINISTERED No Known Medications [...] 3 day s 04/[address] [facility] [place]- Right wrist injury 03/29/2018
--- OUTSIDE RECORDS SUMMARY | 2020-04-09 00:21 | XMS REPORT ---
Author Author Kateryna Turner Doctor Organization [facility] Address Unknown Phone Unavailable Care Team Providers Care Application Integrator Name Role Phone Migration, Doctor Unavailable Unavailable PROBLEMS Type Condition ICD9-CM Code [id number] Code Onset Dates Condition S tatus SNOMED Code Problem Irregular menses N92.6 Active 801 48302 Problem Migraine with aura and without status migrainosu s, not intractable G43.109 Active 5564716 Problem Uncontrolled type 2 diabetes mellitus with hyperglycemia E11.65 Active 074177811 Problem Morbid obesity due to excess calories E66.01 Active 802495223 Problem RLS (restless legs syndrome) G25.81 A ctive 56363532 Problem Morbid obesity E66.01 Active 41967 [id number] ALLERGIES No Information ENCOUNTERS Encounter Location Date Diagnosis [facility] [address] [address] 03 Nov, 2019 [facility] [address] [address] 02 Nov, 2019 RLS (restless legs syndrome) G25.81 [facility] [address] [address] 15 Oct, 2019 [facility] [address] [facility] [id number] [address] [place] [address] 09 Oct, 2019 Influenza J11.1 [facility] [address] [address] 16 Sep, 2019 [facility] [address] [address] Sep, [facility] [address] [address] Sep, [facility] [address] [address] 13 Sep, 2019 [facility] [address] [address] 10 Sep, 2019 Pneumonia of left lower lobe due to infe ctious organism J18.9 and Migraine with aura and without status migrainosus, not intractable G43.109 [facility] [address] [address] 10 Sep, 2019 [facility] [address] [address] 10 Sep, 2019 [facility] [address] [address] 08 Sep, 2019 [facility] [address] [address] 08 Sep, 2019 [place] [address] [address] 08 Sep, 2019 Pneumonia of left lower lobe due to infe ctious organism J18.9 and Migraine with aura and without status migrainosus, not intractable G43.109 [place] [address] [address] Aug, Irregular menses N92.6 ; Well woman exam Z01.419 ; Pelvic cramping R10.2 and Left breast lump N63.20 [place] [address] [address] Aug, [place] [address] [address] Aug, Well woman exam Z01.419 ; Left breast nenita mp N63.20 ; Irregular menses N92.6 ; Encounter for immunization Z23 ; Pelvic cramping R10.2 and Screening for cervical cancer Z12.4 [place] [address] [address] Aug, [place] [address] [address] Aug, [place] [address] [address] Aug, [place] [address] [address] Jul, [facility] [address] [address] Jun, [facility] [address] [address] Jun, [facility] [address] [address] Jun, [facility] [address] [address] Jun, BMI 50.0-59.9, adult Z68.43 [place] [address] [address] Jun, [facility] [address] [facility] [id number] [address] [place] [address] May, Acute non-recurrent sinusiti s, unspecified location J01.90 ; Diarrhea, unspecified R19.7 ; Vomiting, unspecified R11.10 and Morbid obesity E66.01 [facility] [address] [address] Apr, [place] [address] [address] Apr, Anemia due to other cause, not classifie d D64.89 and D-dimer, elevated R79.89 [place] [address] [address] Apr, [facility] [address] [address] Apr, [facility] [address] [address] Mar, Anemia due to other cause, not classifie d D64.89 and D-dimer, elevated R79.89 [place] [address] [address] Mar, Leg edema, right R60.0 ; High risk medic ation use Z79.899 and Morbid obesity E66.01 [place] [address] [address] Mar, BMI 50.0-59.9, adult Z68.43 [place] [address] [address] Mar, [place] [address] [address] January, Uncontrolled type 2 diabetes mellitus wi th hyperglycemia E11.65 ; RLS (restless legs syndrome) G25.81 and Morbid obesity E66.01 [place] [address] [address] 15 Oct, 2018 Lipoma of right lower extremity D17.23 [place] [address] [address] Oct, Lipoma of right lower extremity D17.23 [place] [address] [address] Sep, [place] [address] [address] Sep, [place] [address] [address] Sep, [place] [address] [address] Sep, [place] [address] [address] Sep, [place] [address] [address] Aug, Uncontrolled type 2 diabetes mellitus wi th hyperglycemia E11.65 ; Morbid obesity due to excess calories E66.01 ; Lipoma of torso D17.1 and BMI 50.0-59.9, adult Z68.43 [place] [address] [address] Jun, Encounter for immunization Z23 [place] [address] [id number] [place] [address] Jul, [facility] [address] [place] [id number] [place] [address] Jun, Encounter for immunization Z23 [facility] [address] [id number] [place] [address] 30 May, 2016 [facility] [address] [place] [address] [id number] [place] [address] Jun, Encounter for immunization Z23 [facility] [address] [place] [id number] [place] [address] 29 May, 2015 [facility] [address] [place] [id number] [place] [address] May, [facility] [address] [place] [address] [id number] [place] [address] Apr, [facility] [id number] [place] [address] Feb, [facility] [id number] [place] [address] Feb, [facility] [address] [place] [address] [id number] [place] [address] Feb, [facility] [address] [place] [address] [id number] [place] [address] January, [facility] [address] [place] [address] [id number] [place] [address] January, [facility] [address] [id number] [place] [address] Dec, [facility] [address] [place] [address] [id number] [place] [address] Dec, [facility] [address] [place] [address] [id number] [place] [address] Nov, [facility] [address] [place] [address] [id number] [place] [address] Nov, [facility] [address] [place] [address] [id number] [place] [address] Nov, [facility] [address] [facility] [id number] [place] [address] Nov, [facility] [address] [id number] [place] [address] Nov, [facility] [address] [id number] [place] [address] Nov, [facility] [address] [id number] [place] [address] Nov, [facility] [address] [facility] [id number] [place] [address] Oct, [facility] [address] [id number] [place] [address] Oct, [facility] [address] [id number] [place] [address] Oct, [facility] [address] [id number] [place] [address] Oct, [facility] [address] [id number] [place] [address] Oct, [facility] [address] [id number] [place] [address] Sep, [facility] [address] [id number] [place] [address] Sep, [facility] [address] [id number] [place] [address] Sep, [facility] [address] [facility] [id number] [place] [address] Sep, [facility] [address] [id number] [place] [address] Sep, [facility] [address] [id number] [place] [address] Sep, [facility] [address] [id number] [place] [address] Sep, [facility] [address] [id number] [place] [address] Sep, [facility] [address] [id number] [place] [address] Sep, [facility] [address] [id number] [place] [address] Sep, [facility] [address] [id number] [place] [address] Aug, [facility] [address] [id number] [place] [address] Aug, [facility] [address] [id number] [place] [address] Aug, [facility] [address] [id number] [place] [address] Aug, [facility] [address] [id number] [place] [address] Aug, [facility] [address] [id number] [place] [address] Aug, [facility] [address] [id number] [place] [address] Aug, [facility] [address] [id number] [place] [address] Aug, [facility] [address] [id number] [place] [address] Aug, [facility] [address] [id number] [place] [address] Aug, [facility] [address] [id number] [place] [address] Aug, [facility] [address] [id number] [place] [address] Aug, [facility] [address] [id number] [place] [address] Aug, [facility] [address] [id number] [place] [address] 18 Aug, 2014 [facility] [address] [id number] [place] [address] 17 Aug, 2014 [facility] [address] [id number] [place] [address] Aug, [facility] [address] [id number] [place] [address] 16 Aug, 2014 [facility] [address] [id number] [place] [address] 16 Aug, 2014 [facility] [address] [id number] [place] [address] Aug, [facility] [address] [id number] [place] [address] Aug, [facility] [address] [id number] [place] [address] 08 Aug, 2014 [facility] [address] [id number] [place] [address] Aug, [facility] [address] [id number] [place] [address] 05 Aug, 2014 [facility] [address] [id number] [place] [address] Aug, [facility] [address] [id number] [place] [address] Jul, [facility] [address] [id number] [place] [address] Jul, [facility] [address] [id number] [place] [address] Jun, [facility] [address] [id number] [place] [address] Jun, [facility] [address] [id number] [place] [address] Jun, [facility] [address] [id number] [place] [address] Jun, [facility] [address] [id number] [place] [address] 15 Jun, 2013 [facility] [address] [facility] [id number] [place] [address] 15 Jun, 2013 [facility] [address] [facility] [id number] [place] [address] 14 Jun, 2013 [facility] [address] [id number] [place] [address] 14 Jun, 2014 [facility] [address] [facility] [id number] [place] [address] 13 Jun, 2013 [facility] [address] [facility] [id number] [place] [address] 13 Jun, 2013 [facility] [address] [id number] [place] [address] 13 Jun, 2013 [facility] [address] [id number] [place] [address] 13 Jun, 2013 [facility] [address] [id number] [place] [address] 06 Jun, 2013 [facility] [address] [facility] [id number] [place] [address] 06 Jun, 2014 [facility] [address] [id number] [place] [address] 26 May, 2013 [facility] [address] [id number] [place] [address] 26 May, 2013 [facility] [address] [id number] [place] [address] 22 May, 2013 [facility] [address] [facility] [id number] [place] [address] 22 May, 2013 [facility] [address] [id number] [place] [address] 04 Sep, 2013 [facility] [address] [id number] [place] [address] 04 Sep, 2013 [facility] [address] [id number] [place] [address] May, [facility] [address] [facility] [id number] [place] [address] May, [facility] [address] [facility] [id number] [place] [address] Apr, [facility] [address] [facility] [id number] [place] [address] Apr, [facility] [address] [id number] [facility] [place] [address] Apr, [facility] [address] [facility] [id number] [facility] [place] [address] Apr, [facility] [address] [id number] [place] [address] Apr, [facility] [address] [id number] [place] [address] Apr, [facility] [address] [id number] [place] [address] Apr, [facility] [address] [id number] [place] [address] Apr, [facility] [address] [id number] [place] [address] Apr, [facility] [address] [id number] [place] [address] Mar, [facility] [address] [id number] [place] [address] Mar, [facility] [address] [id number] [place] [address] Mar, [facility] [address] [facility] [id number] [place] [address] Feb, [facility] [address] [id number] [place] [address] Feb, [facility] [address] [id number] [place] [address] Feb, [facility] [address] [id number] [place] [address] Feb, [facility] [address] [facility] [id number] [facility] [place] [address] Feb, [facility] [address] [facility] [id number] [facility] [place] [address] Feb, [facility] [address] [id number] [facility] [place] [address] Feb, [facility] [address] [id number] [facility] [place] [address] Feb, [facility] [address] [facility] [id number] [facility] [place] [address] Feb, [facility] [address] [id number] [place] [address] Feb, [facility] [address] [id number] [place] [address] Feb, [facility] [address] [id number] [place] [address] Feb, [facility] [address] [id number] [place] [address] Feb, [facility] [address] [id number] [place] [address] Feb, [facility] [address] [id number] [place] [address] Feb, [facility] [address] [id number] [place] [address] Feb, [facility] [address] [id number] [place] [address] January, [facility] [address] [id number] [place] [address] January, [facility] [address] [id number] [place] [address] January, [facility] [address] [id number] [place] [address] January, [facility] [address] [id number] [place] [address] January, [facility] [address] [id number] [place] [address] January, [facility] [address] [facility] [id number] [place] [address] January, [facility] [address] [facility] [id number] [place] [address] January, [facility] [address] [facility] [id number] [place] [address] January, [facility] [address] [id number] [place] [address] January, [facility] [address] [id number] [place] [address] January, [facility] [address] [id number] [place] [address] January, [facility] [address] [id number] [place] [address] January, [facility] [address] [id number] [place] [address] January, [facility] [address] [id number] [place] [address] January, [facility] [address] [id number] [place] [address] January, [facility] [address] [id number] [place] [address] January, [facility] [address] [id number] [place] [address] January, [facility] [address] [id number] [place] [address] January, [facility] [address] [facility] [id number] [place] [address] January, [facility] [address] [id number] [place] [address] January, [facility] [address] [id number] [place] [address] January, [facility] [address] [id number] [place] [address] January, [facility] [address] [id number] [place] [address] January, [facility] [address] [id number] [place] [address] January, [facility] [address] [id number] [place] [address] January, [facility] [address] [id number] [place] [address] Dec, [facility] [address] [id number] [place] [address] Dec, [facility] [address] [id number] [place] [address] Dec, [facility] [address] [id number] [place] [address] Dec, [facility] [address] [id number] [place] [address] Dec, [facility] [address] [id number] [place] [address] Dec, [facility] [place] [facility] [address] [id number] [place] [address] Dec, [facility] [place] [facility] [address] [id number] [place] [address] Dec, [facility] [place] [facility] [address] [id number] [place] [address] Dec, [facility] [place] [facility] [address] [id number] [place] [address] Dec, [facility] [place] [facility] [address] [id number] [place] [address] Dec, [facility] [place] [facility] [address] [id number] [place] [address] Dec, [facility] [place] [facility] [address] [facility] [id number] [facility] [place] [address] Dec, [facility] [place] [facility] [address] [facility] [id number] [facility] [place] [address] Dec, [facility] [place] [facility] [address] [id number] [facility] [place] [address] Dec, [facility] [place] [facility] [address] [id number] [place] [address] Dec, [facility] [place] [facility] [address] [facility] [id number] [facility] [place] [address] Dec, [facility] [place] [facility] [address] [id number] [place] [address] Dec, [facility] [place] [facility] [address] [id number] [facility] [place] [address] Dec, [facility] [place] [facility] [address] [id number] [facility] [place] [address] Dec, [facility] [place] [facility] [address] [id number] [facility] [place] [address] Dec, [facility] [place] [facility] [address] [id number] [place] [address] Dec, [facility] [place] [facility] [address] [id number] [place] [address] Nov, [facility] [place] [facility] [address] [id number] [place] [address] Nov, [facility] [place] [facility] [address] [id number] [facility] [place] [address] Nov, [facility] [place] [facility] [address] [id number] [place] [address] Nov, [facility] [place] [facility] [address] [id number] [place] [address] Nov, [facility] [place] [facility] [address] [id number] [place] [address] Nov, [facility] [place] [facility] [address] [id number] [place] [address] 22 Nov, 2013 [facility] [place] [facility] [address] [facility] [id number] [place] [address] Nov, [facility] [place] [facility] [address] [id number] [place] [address] Nov, [facility] [place] [facility] [address] [id number] [place] [address] 18 Nov, 2013 [facility] [place] [facility] [address] [id number] [place] [address] 18 Nov, 2013 [facility] [place] [facility] [address] [id number] [place] [address] Nov, [facility] [place] [facility] [address] [id number] [place] [address] Nov, [facility] [place] [facility] [address] [id number] [place] [address] Nov, [facility] [place] [facility] [address] [id number] [place] [address] Nov, [facility] [place] [facility] [address] [id number] [place] [address] Nov, [facility] [place] [facility] [address] [id number] [place] [address] Oct, [facility] [place] [facility] [address] [id number] [place] [address] Oct, [facility] [place] [facility] [address] [id number] [place] [address] Oct, [facility] [place] [facility] [address] [facility] [id number] [place] [address] Oct, [facility] [place] [facility] [address] [id number] [place] [address] 24 Oct, 2013 [facility] [place] [facility] [address] [id number] [place] [address] Oct, [facility] [place] [facility] [address] [id number] [place] [address] Oct, [facility] [place] [facility] [address] [facility] [id number] [place] [address] Oct, [facility] [place] [facility] [address] [facility] [id number] [place] [address] Oct, [facility] [place] [facility] [address] [id number] [place] [address] Oct, [facility] [place] [facility] [address] [id number] [place] [address] Oct, [facility] [place] [facility] [address] [facility] [id number] [place] [address] Oct, [facility] [place] [facility] [address] [id number] [place] [address] Oct, [facility] [place] [facility] [address] [id number] [place] [address] Oct, [facility] [place] [facility] [address] [id number] [place] [address] Oct, [facility] [place] [facility] [address] [id number] [place] [address] Sep, [facility] [place] [facility] [address] [id number] [place] [address] Sep, [facility] [place] [facility] [address] [id number] [place] [address] Sep, [facility] [place] [facility] [address] [id number] [place] [address] Sep, [facility] [place] [facility] [address] [id number] [place] [address] Sep, [facility] [place] [facility] [address] [id number] [place] [address] Sep, [facility] [address] [id number] [place] [address] Sep, [facility] [address] [id number] [place] [address] Sep, [facility] [address] [id number] [place] [address] Sep, [facility] [address] [id number] [place] [address] Sep, [facility] [address] [id number] [place] [address] Sep, [facility] [address] [id number] [place] [address] Sep, [facility] [address] [id number] [place] [address] Sep, [facility] [address] [id number] [place] [address] Aug, [facility] [address] [id number] [place] [address] Aug, [facility] [address] [id number] [place] [address] Aug, [facility] [address] [id number] [place] [address] 24 Aug, 2013 [facility] [address] [id number] [place] [address] Aug, [facility] [address] [id number] [place] [address] 17 Aug, 2013 [facility] [address] [id number] [place] [address] 16 Aug, 2013 [facility] [address] [id number] [place] [address] 16 Aug, 2013 [facility] [address] [id number] [place] [address] 12 Aug, 2013 [facility] [address] [id number] [place] [address] 12 Aug, 2013 [facility] [address] [id number] [place] [address] 10 Aug, 2013 [facility] [address] [id number] [place] [address] 10 Aug, 2013 [facility] [address] [id number] [place] [address] 02 Aug, 2013 [facility] [address] [id number] [place] [address] Aug, [facility] [address] [id number] [place] [address] Jul, [facility] [address] [id number] [place] [address] Jul, [facility] [address] [id number] [place] [address] 18 Jul, 2013 [facility] [address] [id number] [place] [address] 18 Jul, 2013 [facility] [address] [id number] [place] [address] 14 Jul, 2013 [facility] [address] [id number] [place] [address] 14 Jul, 2013 [facility] [address] [id number] [place] [address] 14 Jul, 2013 [facility] [address] [id number] [place] [address] 14 Jul, 2013 [facility] [address] [id number] [place] [address] 07 Jul, 2013 [facility] [address] [id number] [place] [address] 07 Jul, 2013 [facility] [address] [id number] [place] [address] 06 Jul, 2013 [facility] [address] [id number] [place] [address] 06 Jul, 2013 [facility] [address] [id number] [place] [address] 05 Jul, 2013 [facility] [address] [id number] [place] [address] 05 Jul, 2013 [facility] [address] [id number] [place] [address] 23 Jun, 2013 [facility] [address] [id number] [place] [address] 23 Jun, 2013 [facility] [address] [id number] [place] [address] 15 Jun, 2013 [facility] [address] [id number] [place] [address] 15 Jun, 2013 [facility] [address] [id number] [place] [address] 14 Jun, 2013 [facility] [address] [id number] [place] [address] 24 May, 2012 [facility] [address] [id number] [place] [address] 20 May, 2012 [facility] [address] [id number] [place] [address] 20 May, 2012 [facility] [address] [id number] [place] [address] 20 May, 2012 [facility] [address] [id number] [place] [address] 19 May, 2012 [facility] [address] [id number] [place] [address] 13 May, 2012 [facility] [address] [id number] [place] [address] 12 May, 2012 [facility] [address] [id number] [place] [address] 12 May, 2012 [facility] [address] [id number] [place] [address] 11 May, 2012 [facility] [address] [id number] [place] [address] 11 May, 2012 [facility] [address] [id number] [place] [address] 11 May, 2012 [facility] [address] [id number] [place] [address] 09 Sep, 2012 [facility] [address] [id number] [place] [address] May, [facility] [address] [id number] [facility] [place] [address] May, [facility] [address] [id number] [facility] [place] [address] May, [facility] [address] [id number] [place] [address] Apr, [facility] [address] [facility] [id number] [place] [address] Apr, [facility] [address] [id number] [place] [address] Apr, [facility] [address] [id number] [place] [address] Apr, [facility] [address] [id number] [place] [address] Apr, [facility] [address] [id number] [place] [address] Apr, [facility] [address] [id number] [place] [address] Apr, [facility] [address] [id number] [place] [address] Apr, [facility] [address] [id number] [place] [address] Apr, [facility] [address] [id number] [place] [address] Mar, [facility] [address] [id number] [place] [address] Mar, [facility] [address] [id number] [place] [address] Mar, [facility] [address] [id number] [place] [address] Mar, [facility] [address] [id number] [place] [address] Mar, [facility] [address] [facility] [id number] [place] [address] Mar, [facility] [address] [facility] [id number] [facility] [place] [address] Mar, [facility] [address] [id number] [place] [address] Mar, [facility] [address] [id number] [facility] [place] [address] Mar, [facility] [address] [facility] [id number] [place] [address] Mar, [facility] [address] [id number] [place] [address] Mar, [facility] [address] [id number] [place] [address] Feb, [facility] [address] [id number] [place] [address] Feb, [facility] [address] [id number] [place] [address] Feb, [facility] [address] [id number] [place] [address] Feb, [facility] [address] [id number] [place] [address] Feb, [facility] [address] [id number] [place] [address] Feb, [facility] [address] [facility] [id number] [place] [address] Feb, [facility] [address] [id number] [place] [address] Feb, [facility] [address] [id number] [place] [address] Feb, [facility] [address] [id number] [place] [address] January, [facility] [address] [id number] [facility] [place] [address] January, [facility] [address] [id number] [place] [address] January, [facility] [address] [id number] [place] [address] January, [facility] [address] [id number] [place] [address] January, [facility] [address] [id number] [place] [address] January, [facility] [address] [id number] [place] [address] January, [facility] [address] [id number] [place] [address] January, [facility] [address] [id number] [place] [address] January, [facility] [address] [id number] [place] [address] January, [facility] [address] [id number] [place] [address] January, [facility] [address] [id number] [place] [address] January, [facility] [address] [id number] [place] [address] January, [facility] [address] [id number] [place] [address] January, [facility] [address] [id number] [place] [address] January, [facility] [address] [id number] [place] [address] January, [facility] [address] [id number] [place] [address] January, [facility] [address] [id number] [place] [address] January, [facility] [address] [id number] [place] [address] January, [facility] [address] [id number] [place] [address] January, [facility] [address] [id number] [place] [address] January, [facility] [address] [id number] [place] [address] January, [facility] [address] [id number] [place] [address] January, [facility] [address] [id number] [place] [address] Dec, [facility] [address] [id number] [place] [address] Dec, [facility] [address] [id number] [place] [address] Dec, [facility] [address] [id number] [place] [address] Dec, [facility] [address] [id number] [place] [address] Dec, [facility] [address] [id number] [place] [address] Nov, [facility] [address] [id number] [place] [address] Oct, [facility] [address] [id number] [place] [address] Oct, [facility] [address] [id number] [place] [address] Oct, [facility] [address] [id number] [place] [address] Oct, [facility] [address] [id number] [place] [address] Oct, [facility] [address] [id number] [place] [address] Sep, [facility] [address] [id number] [place] [address] Sep, [facility] [address] [id number] [place] [address] Sep, [facility] [address] [id number] [place] [address] Aug, [facility] [address] [id number] [place] [address] Aug, [facility] [address] [id number] [place] [address] Aug, [facility] [address] [id number] [place] [address] Aug, [facility] [address] [id number] [place] [address] Jul, [facility] [address] [id number] [place] [address] Jul, [facility] [address] [id number] [place] [address] Jul, [facility] [id number] [place] [address] Jul, [facility] [id number] [place] [address] Jul, [facility] [address] [id number] [place] [address] Jul, [facility] [address] [id number] [place] [address] Jun, [facility] [address] [id number] [place] [address] 18 Jun, 2012 [facility] [address] [id number] [place] [address] Jun, [facility] [id number] [place] [address] Jun, [facility] [address] [id number] [place] [address] Jun, 2011 [facility] [address] [id number] [place] [address] Jun, [facility] [address] [id number] [place] [address] Jun, [facility] [address] [id number] [place] [address] Jun, [facility] [address] [id number] [place] [address] Jun, [facility] [address] [id number] [place] [address] Jun, [facility] [address] [id number] [place] [address] May, [facility] [address] [id number] [place] [address] May, [facility] [address] [id number] [place] [address] May, [facility] [address] [id number] [place] [address] 30 Apr, 2012 [facility] [address] [id number] [place] [address] Apr, [facility] [address] [id number] [place] [address] Apr, [facility] [address] [id number] [place] [address] Apr, [facility] [address] [id number] [place] [address] Apr, [facility] [address] [id number] [place] [address] Apr, [facility] [address] [id number] [place] [address] Apr, [facility] [address] [id number] [place] [address] Apr, [facility] [address] [id number] [place] [address] Apr, [facility] [address] [id number] [place] [address] Mar, [facility] [address] [id number] [place] [address] Mar, [facility] [address] [id number] [place] [address] Mar, [facility] [address] [id number] [place] [address] Mar, [facility] [address] [id number] [place] [address] Feb, [facility] [address] [id number] [place] [address] Feb, [facility] [address] [id number] [place] [address] Feb, [facility] [address] [id number] [place] [address] January, [facility] [address] [id number] [place] [address] January, [facility] [address] [id number] [place] [address] January, [facility] [address] [id number] [place] [address] January, [facility] [address] [id number] [place] [address] January, [facility] [address] [id number] [place] [address] Dec, [facility] [address] [id number] [place] [address] Dec, [facility] [address] [id number] [place] [address] 16 Dec, 2011 [facility] [address] [id number] [place] [address] Oct, [facility] [address] [id number] [place] [address] Oct, [facility] [address] [id number] [place] [address] Oct, [facility] [address] [id number] [place] [address] Sep, [facility] [address] [id number] [place] [address] Sep, [facility] [address] [id number] [place] [address] Aug, [facility] [id number] [place] [address] Jul, [facility] [id number] [place] [address] Jul, [facility] [id number] [place] [address] Mar, [facility] [address] [id number] [place] [address] Aug, [facility] [id number] [place] [address] Jul, [facility] [address] [id number] [place] [address] Jul, [facility] [id number] [place] [address] Jul, [facility] [address] [id number] [place] [address] Jul, [facility] [address] [id number] [place] [address] 14 Jun, 2010 [facility] [address] [id number] [place] [address] Jun, [facility] [address] [id number] [place] [address] Apr, [facility] [address] [id number] [place] [address] 11 Aug, 2009 [facility] [id number] [place] [address] Jul, [facility] [id number] [place] [address] Jul, [facility] [id number] [place] [address] Jul, [facility] [id number] [place] [address] Jun, [facility] [id number] [place] [address] 10 May, 2009 [facility] [id number] [place] [address] 14 Dec, 2008 [facility] [address] [id number] [place] [address] Nov, [facility] [address] [id number] [place] [address] Oct, [facility] [address] [id number] [place] [address] Aug, [facility] [address] [id number] [place] [address] Aug, [facility] [address] [id number] [place] [address] Jun, IMMUNIZATIONS No Known Immunizations SOCIAL HISTORY [...] x 3 day s 04/2012 Hospitalization History [facility] [place]- Right wrist injury 03/29/2018
--- OUTSIDE RECORDS SUMMARY | 2020-04-09 00:22 | XMS REPORT ---
Author Author Kateryna Turner Doctor Organization [facility] Address Unknown Phone Unavailable Care Team Providers Care Motion Picture Cameraman Name Role Phone Migration, Doctor Unavailable Unavailable PROBLEMS Type Condition ICD9-CM Code [id number] Code Onset Dates Condition S tatus SNOMED Code Problem Irregular menses N92.6 Active 801 15075 Problem Migraine with aura and without status migrainosu s, not intractable G43.109 Active 1570589 Problem Uncontrolled type 2 diabetes mellitus with hyperglycemia E11.65 Active 519226156 Problem Morbid obesity due to excess calories E66.01 Active 010274727 Problem RLS (restless legs syndrome) G25.81 A ctive 51204628 Problem Morbid obesity E66.01 Active 21344 6002 ALLERGIES No Information ENCOUNTERS Encounter Location Date Diagnosis [facility] [address] [address] 03 Nov, 2019 [facility] [address] [address] 02 Nov, 2019 RLS (restless legs syndrome) G25.81 [facility] [address] [address] 15 Oct, 2019 [facility] [address] [facility] [id number] [address] [place] [address] 09 Oct, 2019 Influenza J11.1 [facility] [address] [address] 16 Sep, 2019 [facility] [address] [address] Sep, [facility] [address] [address] Sep, [facility] [address] [address] 13 Sep, 2019 [facility] [address] [address] 10 Sep, 2019 Pneumonia of left lower lobe due to infe ctious organism J18.9 and Migraine with aura and without status migrainosus, not intractable G43.109 [facility] [address] [address] 10 Sep, 2019 [facility] [address] [address] 10 Sep, 2019 [facility] [address] [address] 08 Sep, 2019 [facility] [address] [address] 08 Sep, 2019 [place] [address] [address] 08 Sep, 2019 Pneumonia of left lower lobe due to infe ctious organism J18.9 and Migraine with aura and without status migrainosus, not intractable G43.109 [place] [address] [address] Aug, Irregular menses N92.6 ; Well woman exam Z01.419 ; Pelvic cramping R10.2 and Left breast lump N63.20 [place] [address] [address] Aug, [place] [address] [address] Aug, Well woman exam Z01.419 ; Left breast nenita mp N63.20 ; Irregular menses N92.6 ; Encounter for immunization Z23 ; Pelvic cramping R10.2 and Screening for cervical cancer Z12.4 [place] [address] [address] Aug, [place] [address] [address] Aug, [place] [address] [address] Aug, [place] [address] [address] Jul, [facility] [address] [address] Jun, [facility] [address] [address] Jun, [facility] [address] [address] Jun, [facility] [address] [address] Jun, BMI 50.0-59.9, adult Z68.43 [place] [address] [address] Jun, [facility] [address] [facility] [id number] [address] [place] [address] May, Acute non-recurrent sinusiti s, unspecified location J01.90 ; Diarrhea, unspecified R19.7 ; Vomiting, unspecified R11.10 and Morbid obesity E66.01 [facility] [address] [address] Apr, [place] [address] [address] Apr, Anemia due to other cause, not classifie d D64.89 and D-dimer, elevated R79.89 [place] [address] [address] Apr, [facility] [address] [address] Apr, [facility] [address] [address] Mar, Anemia due to other cause, not classifie d D64.89 and D-dimer, elevated R79.89 [place] [address] [address] Mar, Leg edema, right R60.0 ; High risk medic ation use Z79.899 and Morbid obesity E66.01 [place] [address] [address] Mar, BMI 50.0-59.9, adult Z68.43 [place] [address] [address] Mar, [place] [address] [address] January, Uncontrolled type 2 diabetes mellitus wi th hyperglycemia E11.65 ; RLS (restless legs syndrome) G25.81 and Morbid obesity E66.01 [place] [address] [address] 15 Oct, 2018 Lipoma of right lower extremity D17.23 [place] [address] [address] Oct, Lipoma of right lower extremity D17.23 [place] [address] [address] Sep, [place] [address] [address] Sep, [place] [address] [address] Sep, [place] [address] [address] Sep, [place] [address] [address] Sep, [place] [address] [address] Aug, Uncontrolled type 2 diabetes mellitus wi th hyperglycemia E11.65 ; Morbid obesity due to excess calories E66.01 ; Lipoma of torso D17.1 and BMI 50.0-59.9, adult Z68.43 [place] [address] [address] Jun, Encounter for immunization Z23 [place] [address] [id number] [place] [address] Jul, [facility] [address] [place] [id number] [place] [address] Jun, Encounter for immunization Z23 [facility] [address] [id number] [place] [address] 30 May, 2016 [facility] [address] [place] [id number] [place] [address] Jun, Encounter for immunization Z23 [facility] [address] [place] [id number] [place] [address] 29 May, 2015 [facility] [address] [place] [id number] [place] [address] May, [facility] [address] [place] [id number] [place] [address] Apr, [facility] [address] [address] [id number] [place] [address] Feb, [facility] [address] [address] [id number] [place] [address] Feb, [facility] [address] [place] [id number] [place] [address] Feb, [facility] [address] [place] [id number] [place] [address] January, [facility] [address] [place] [id number] [place] [address] January, [facility] [address] [id number] [place] [address] Dec, [facility] [address] [place] [id number] [place] [address] Dec, [facility] [address] [place] [id number] [place] [address] Nov, [facility] [place] [facility] [address] [place] [id number] [place] [address] Nov, [facility] [address] [place] [id number] [place] [address] Nov, [facility] [place] [facility] [address] [facility] [id number] [place] [address] Nov, [facility] [place] [facility] [address] [id number] [place] [address] Nov, [facility] [place] [facility] [address] [id number] [place] [address] Nov, [facility] [place] [facility] [address] [id number] [place] [address] Nov, [facility] [place] [facility] [address] [facility] [id number] [place] [address] Oct, [facility] [place] [facility] [address] [id number] [place] [address] Oct, [facility] [place] [facility] [address] [id number] [place] [address] Oct, [facility] [place] [facility] [address] [id number] [place] [address] Oct, [facility] [place] [facility] [address] [id number] [place] [address] Oct, [facility] [place] [facility] [address] [id number] [place] [address] Sep, [facility] [place] [facility] [address] [id number] [place] [address] Sep, [facility] [place] [facility] [address] [id number] [place] [address] Sep, [facility] [place] [facility] [address] [facility] [id number] [place] [address] Sep, [facility] [place] [facility] [address] [id number] [place] [address] Sep, [facility] [place] [facility] [address] [id number] [place] [address] Sep, [facility] [place] [facility] [address] [id number] [place] [address] Sep, [facility] [place] [facility] [address] [id number] [place] [address] Sep, [facility] [place] [facility] [address] [id number] [place] [address] Sep, [facility] [place] [facility] [address] [id number] [place] [address] Sep, [facility] [place] [facility] [address] [id number] [place] [address] Aug, [facility] [place] [facility] [address] [id number] [place] [address] Aug, [facility] [place] [facility] [address] [id number] [place] [address] Aug, [facility] [place] [facility] [address] [id number] [place] [address] Aug, [facility] [place] [facility] [address] [id number] [place] [address] Aug, [facility] [place] [facility] [address] [id number] [place] [address] Aug, [facility] [place] [facility] [address] [id number] [place] [address] Aug, [facility] [place] [facility] [address] [id number] [place] [address] Aug, [facility] [place] [facility] [address] [id number] [place] [address] Aug, [facility] [place] [facility] [address] [id number] [place] [address] Aug, [facility] [place] [facility] [address] [id number] [place] [address] Aug, [facility] [place] [facility] [address] [id number] [place] [address] Aug, [facility] [place] [facility] [address] [id number] [place] [address] Aug, [facility] [place] [facility] [address] [id number] [place] [address] 18 Aug, 2014 [facility] [place] [facility] [address] [id number] [place] [address] 17 Aug, 2014 [facility] [place] [facility] [address] [id number] [place] [address] Aug, [facility] [place] [facility] [address] [id number] [place] [address] 16 Aug, 2014 [facility] [place] [facility] [address] [id number] [place] [address] 16 Aug, 2014 [facility] [place] [facility] [address] [id number] [place] [address] Aug, [facility] [place] [facility] [address] [id number] [place] [address] Aug, [facility] [place] [facility] [address] [id number] [place] [address] 08 Aug, 2014 [facility] [place] [facility] [address] [id number] [place] [address] Aug, [facility] [place] [facility] [address] [id number] [place] [address] 05 Aug, 2014 [facility] [place] [facility] [address] [id number] [place] [address] Aug, [facility] [place] [facility] [address] [id number] [place] [address] Jul, [facility] [place] [facility] [address] [id number] [place] [address] Jul, [facility] [place] [facility] [address] [id number] [place] [address] Jun, [facility] [place] [facility] [address] [id number] [place] [address] Jun, [facility] [place] [facility] [address] [id number] [place] [address] Jun, [facility] [place] [facility] [address] [id number] [place] [address] Jun, [facility] [place] [facility] [address] [id number] [place] [address] 15 Jun, 2013 [facility] [place] [facility] [address] [facility] [id number] [place] [address] 15 Jun, 2013 [facility] [place] [facility] [address] [facility] [id number] [place] [address] 14 Jun, 2013 [facility] [place] [facility] [address] [id number] [place] [address] 14 Jun, 2014 [facility] [place] [facility] [address] [facility] [id number] [place] [address] 13 Jun, 2013 [facility] [place] [facility] [address] [facility] [id number] [place] [address] 13 Jun, 2013 [facility] [place] [facility] [address] [id number] [place] [address] 13 Jun, 2013 [facility] [place] [facility] [address] [id number] [place] [address] 13 Jun, 2013 [facility] [place] [facility] [address] [id number] [place] [address] 06 Jun, 2013 [facility] [place] [facility] [address] [facility] [id number] [place] [address] 06 Jun, 2014 [facility] [place] [facility] [address] [id number] [place] [address] 26 May, 2013 [facility] [place] [facility] [address] [id number] [place] [address] 26 May, 2013 [facility] [place] [facility] [address] [id number] [place] [address] 22 May, 2013 [facility] [place] [facility] [address] [facility] [id number] [place] [address] 22 May, 2013 [facility] [place] [facility] [address] [id number] [place] [address] 04 Sep, 2013 [facility] [place] [facility] [address] [id number] [place] [address] 04 Sep, 2013 [facility] [place] [facility] [address] [id number] [place] [address] May, [facility] [place] [facility] [address] [facility] [id number] [place] [address] May, [facility] [place] [facility] [address] [facility] [id number] [place] [address] Apr, [facility] [place] [facility] [address] [facility] [id number] [place] [address] Apr, [facility] [place] [facility] [address] [id number] [facility] [place] [address] Apr, [facility] [place] [facility] [address] [facility] [id number] [facility] [place] [address] Apr, [facility] [place] [facility] [address] [id number] [place] [address] Apr, [facility] [place] [facility] [address] [id number] [place] [address] Apr, [facility] [place] [facility] [address] [id number] [place] [address] Apr, [facility] [place] [facility] [address] [id number] [place] [address] Apr, [facility] [place] [facility] [address] [id number] [place] [address] Apr, [facility] [place] [facility] [address] [id number] [place] [address] Mar, [facility] [place] [facility] [address] [id number] [place] [address] Mar, [facility] [place] [facility] [address] [id number] [place] [address] Mar, [facility] [place] [facility] [address] [facility] [id number] [place] [address] Feb, [facility] [place] [facility] [address] [id number] [place] [address] Feb, [facility] [place] [facility] [address] [id number] [place] [address] Feb, [facility] [place] [facility] [address] [id number] [place] [address] Feb, [facility] [place] [facility] [address] [facility] [id number] [facility] [place] [address] Feb, [facility] [place] [facility] [address] [facility] [id number] [facility] [place] [address] Feb, [facility] [place] [facility] [address] [id number] [facility] [place] [address] Feb, [facility] [place] [facility] [address] [id number] [facility] [place] [address] Feb, [facility] [place] [facility] [address] [facility] [id number] [facility] [place] [address] Feb, [facility] [place] [facility] [address] [id number] [place] [address] Feb, [facility] [place] [facility] [address] [id number] [place] [address] Feb, [facility] [place] [facility] [address] [id number] [place] [address] Feb, [facility] [place] [facility] [address] [id number] [place] [address] Feb, [facility] [place] [facility] [address] [id number] [place] [address] Feb, [facility] [place] [facility] [address] [id number] [place] [address] Feb, [facility] [place] [facility] [address] [id number] [place] [address] Feb, [facility] [place] [facility] [address] [id number] [place] [address] January, [facility] [place] [facility] [address] [id number] [place] [address] January, [facility] [place] [facility] [address] [id number] [place] [address] January, [facility] [place] [facility] [address] [id number] [place] [address] January, [facility] [place] [facility] [address] [id number] [place] [address] January, [facility] [place] [facility] [address] [id number] [place] [address] January, [facility] [place] [facility] [address] [facility] [id number] [place] [address] January, [facility] [place] [facility] [address] [facility] [id number] [place] [address] January, [facility] [place] [facility] [address] [facility] [id number] [place] [address] January, [facility] [place] [facility] [address] [id number] [place] [address] January, [facility] [place] [facility] [address] [id number] [place] [address] January, [facility] [place] [facility] [address] [id number] [place] [address] January, [facility] [place] [facility] [address] [id number] [place] [address] January, [facility] [place] [facility] [address] [id number] [place] [address] January, [facility] [place] [facility] [address] [id number] [place] [address] January, [facility] [place] [facility] [address] [id number] [place] [address] January, [facility] [place] [facility] [address] [id number] [place] [address] January, [facility] [place] [facility] [address] [id number] [place] [address] January, [facility] [place] [facility] [address] [id number] [place] [address] January, [facility] [place] [facility] [address] [facility] [id number] [place] [address] January, [facility] [place] [facility] [address] [id number] [place] [address] January, [facility] [place] [facility] [address] [id number] [place] [address] January, [facility] [place] [facility] [address] [id number] [place] [address] January, [facility] [place] [facility] [address] [id number] [place] [address] January, [facility] [place] [facility] [address] [id number] [place] [address] January, [facility] [place] [facility] [address] [id number] [place] [address] January, [facility] [place] [facility] [address] [id number] [place] [address] Dec, [facility] [place] [facility] [address] [id number] [place] [address] Dec, [facility] [place] [facility] [address] [id number] [place] [address] Dec, [facility] [place] [facility] [address] [id number] [place] [address] Dec, [facility] [place] [facility] [address] [id number] [place] [address] Dec, [facility] [place] [facility] [address] [id number] [place] [address] Dec, [facility] [place] [facility] [address] [id number] [place] [address] Dec, [facility] [place] [facility] [address] [id number] [place] [address] Dec, [facility] [place] [facility] [address] [id number] [place] [address] Dec, [facility] [place] [facility] [address] [id number] [place] [address] Dec, [facility] [place] [facility] [address] [id number] [place] [address] Dec, [facility] [place] [facility] [address] [id number] [place] [address] Dec, [facility] [place] [facility] [address] [facility] [id number] [facility] [place] [address] Dec, [facility] [place] [facility] [address] [facility] [id number] [facility] [place] [address] Dec, [facility] [place] [facility] [address] [id number] [facility] [place] [address] Dec, [facility] [place] [facility] [address] [id number] [place] [address] Dec, [facility] [place] [facility] [address] [facility] [id number] [facility] [place] [address] Dec, [facility] [place] [facility] [id number] [place] [address] Dec, [facility] [place] [facility] [id number] [facility] [place] [address] Dec, [facility] [place] [facility] [id number] [facility] [place] [address] Dec, [facility] [place] [facility] [id number] [facility] [place] [address] Dec, [facility] [place] [facility] [id number] [place] [address] Dec, [facility] [place] [facility] [id number] [place] [address] Nov, [facility] [place] [facility] [id number] [place] [address] Nov, [facility] [place] [facility] [id number] [facility] [place] [address] Nov, [facility] [place] [facility] [id number] [place] [address] Nov, [facility] [place] [facility] [id number] [place] [address] Nov, [facility] [place] [facility] [id number] [place] [address] Nov, [facility] [place] [facility] [id number] [place] [address] 22 Nov, 2013 [facility] [place] [facility] [address] [facility] [id number] [place] [address] Nov, [facility] [place] [facility] [id number] [place] [address] Nov, [facility] [place] [facility] [id number] [place] [address] 18 Nov, 2013 [facility] [place] [facility] [id number] [place] [address] 18 Nov, 2013 [facility] [place] [facility] [id number] [place] [address] Nov, [facility] [place] [facility] [id number] [place] [address] Nov, [facility] [place] [facility] [id number] [place] [address] Nov, [facility] [place] [facility] [id number] [place] [address] Nov, [facility] [place] [facility] [id number] [place] [address] Nov, [facility] [place] [facility] [id number] [place] [address] Oct, [facility] [place] [facility] [id number] [place] [address] Oct, [facility] [place] [facility] [id number] [place] [address] Oct, [facility] [place] [facility] [address] [facility] [id number] [place] [address] Oct, [facility] [place] [facility] [id number] [place] [address] 24 Oct, 2013 [facility] [place] [facility] [id number] [place] [address] Oct, [facility] [place] [facility] [id number] [place] [address] Oct, [facility] [place] [facility] [address] [facility] [id number] [place] [address] Oct, [facility] [place] [facility] [address] [facility] [id number] [place] [address] Oct, [facility] [place] [facility] [id number] [place] [address] Oct, [facility] [place] [facility] [id number] [place] [address] Oct, [facility] [place] [facility] [address] [facility] [id number] [place] [address] Oct, [facility] [place] [facility] [id number] [place] [address] Oct, [facility] [place] [facility] [id number] [place] [address] Oct, [facility] [place] [facility] [id number] [place] [address] Oct, [facility] [place] [facility] [id number] [place] [address] Sep, [facility] [place] [facility] [id number] [place] [address] Sep, [facility] [place] [facility] [id number] [place] [address] Sep, [facility] [place] [facility] [id number] [place] [address] Sep, [facility] [place] [facility] [id number] [place] [address] Sep, [facility] [place] [facility] [id number] [place] [address] Sep, [facility] [place] [facility] [id number] [place] [address] Sep, [facility] [place] [facility] [id number] [place] [address] Sep, [facility] [place] [facility] [id number] [place] [address] Sep, [facility] [place] [facility] [id number] [place] [address] Sep, [facility] [place] [facility] [id number] [place] [address] Sep, [facility] [place] [facility] [id number] [place] [address] Sep, [facility] [place] [facility] [id number] [place] [address] Sep, [facility] [place] [facility] [id number] [place] [address] Aug, [facility] [facility] [id number] [place] [address] Aug, [facility] [id number] [place] [address] Aug, [facility] [id number] [place] [address] 24 Aug, 2013 [facility] [id number] [place] [address] Aug, [facility] [id number] [place] [address] 17 Aug, 2013 [facility] [id number] [place] [address] 16 Aug, 2013 [facility] [id number] [place] [address] 16 Aug, 2013 [facility] [id number] [place] [address] 12 Aug, 2013 [facility] [id number] [place] [address] 12 Aug, 2013 [facility] [id number] [place] [address] 10 Aug, 2013 [facility] [id number] [place] [address] 10 Aug, 2013 [facility] [id number] [place] [address] 02 Aug, 2013 [facility] [id number] [place] [address] Aug, [facility] [id number] [place] [address] Jul, [facility] [id number] [place] [address] Jul, [facility] [id number] [place] [address] 18 Jul, 2013 [facility] [id number] [place] [address] 18 Jul, 2013 [facility] [id number] [place] [address] 14 Jul, 2013 [facility] [id number] [place] [address] 14 Jul, 2013 [facility] [id number] [place] [address] 14 Jul, 2013 [facility] [id number] [place] [address] 14 Jul, 2013 [facility] [id number] [place] [address] 07 Jul, 2013 [facility] [id number] [place] [address] 07 Jul, 2013 [facility] [id number] [place] [address] 06 Jul, 2013 [facility] [id number] [place] [address] 06 Jul, 2013 [facility] [id number] [place] [address] 05 Jul, 2013 [facility] [id number] [place] [address] 05 Jul, 2013 [facility] [id number] [place] [address] 23 Jun, 2013 [facility] [address] [id number] [place] [address] 23 Jun, 2013 [facility] [id number] [place] [address] 15 Jun, 2013 [facility] [id number] [place] [address] 15 Jun, 2013 [facility] [id number] [place] [address] 14 Jun, 2013 [facility] [address] [id number] [place] [address] 24 May, 2012 [facility] [id number] [place] [address] 20 May, 2012 [facility] [id number] [place] [address] 20 May, 2012 [facility] [id number] [place] [address] 20 May, 2012 [facility] [id number] [place] [address] 19 May, 2012 [facility] [id number] [place] [address] 13 May, 2012 [facility] [id number] [place] [address] 12 May, 2012 [facility] [id number] [place] [address] 12 May, 2012 [facility] [address] [id number] [place] [address] 11 May, 2012 [facility] [id number] [place] [address] 11 May, 2012 [facility] [id number] [place] [address] 11 May, 2012 [facility] [id number] [place] [address] 09 Sep, 2012 [facility] [address] [id number] [place] [address] May, [facility] [address] [id number] [facility] [place] [address] May, [facility] [id number] [facility] [place] [address] May, [facility] [id number] [place] [address] Apr, [facility] [address] [facility] [id number] [place] [address] Apr, [facility] [address] [id number] [place] [address] Apr, [facility] [id number] [place] [address] Apr, [facility] [id number] [place] [address] Apr, [facility] [id number] [place] [address] Apr, [facility] [address] [id number] [place] [address] Apr, [facility] [id number] [place] [address] Apr, [facility] [id number] [place] [address] Apr, [facility] [address] [id number] [place] [address] Mar, [facility] [address] [id number] [place] [address] Mar, [facility] [address] [id number] [place] [address] Mar, [facility] [id number] [place] [address] Mar, [facility] [id number] [place] [address] Mar, [facility] [address] [facility] [id number] [place] [address] Mar, [facility] [address] [facility] [id number] [facility] [place] [address] Mar, [facility] [id number] [place] [address] Mar, [facility] [id number] [facility] [place] [address] Mar, [facility] [address] [facility] [id number] [place] [address] Mar, [facility] [id number] [place] [address] Mar, [facility] [id number] [place] [address] Feb, [facility] [id number] [place] [address] Feb, [facility] [id number] [place] [address] Feb, [facility] [id number] [place] [address] Feb, [facility] [id number] [place] [address] Feb, [facility] [id number] [place] [address] Feb, [facility] [address] [facility] [id number] [place] [address] Feb, [facility] [id number] [place] [address] Feb, [facility] [id number] [place] [address] Feb, [facility] [id number] [place] [address] January, [facility] [id number] [facility] [place] [address] January, [facility] [address] [id number] [place] [address] January, [facility] [id number] [place] [address] January, [facility] [address] [id number] [place] [address] January, [facility] [address] [id number] [place] [address] January, [facility] [address] [id number] [place] [address] January, [facility] [id number] [place] [address] January, [facility] [id number] [place] [address] January, [facility] [address] [id number] [place] [address] January, [facility] [address] [id number] [place] [address] January, [facility] [id number] [place] [address] January, [facility] [id number] [place] [address] January, [facility] [address] [id number] [place] [address] January, [facility] [address] [id number] [place] [address] January, [facility] [address] [id number] [place] [address] January, [facility] [id number] [place] [address] January, [facility] [id number] [place] [address] January, [facility] [id number] [place] [address] January, [facility] [id number] [place] [address] January, [facility] [id number] [place] [address] January, [facility] [id number] [place] [address] January, [facility] [id number] [place] [address] January, [facility] [id number] [place] [address] Dec, [facility] [id number] [place] [address] Dec, [facility] [id number] [place] [address] Dec, [facility] [id number] [place] [address] Dec, [facility] [id number] [place] [address] Dec, [facility] [id number] [place] [address] Nov, [facility] [id number] [place] [address] Oct, [facility] [id number] [place] [address] Oct, [facility] [id number] [place] [address] Oct, [facility] [id number] [place] [address] Oct, [facility] [id number] [place] [address] Oct, [facility] [id number] [place] [address] Sep, [facility] [id number] [place] [address] Sep, [facility] [id number] [place] [address] Sep, [facility] [id number] [place] [address] Aug, [facility] [id number] [place] [address] Aug, [facility] [id number] [place] [address] Aug, [facility] [id number] [place] [address] Aug, [facility] [id number] [place] [address] Jul, [facility] [id number] [place] [address] Jul, [facility] [id number] [place] [address] Jul, [facility] [id number] [place] [address] Jul, [facility] [id number] [place] [address] Jul, [facility] [id number] [place] [address] Jul, [facility] [id number] [place] [address] Jun, [facility] [id number] [place] [address] 18 Jun, 2012 [facility] [id number] [place] [address] Jun, [facility] [id number] [place] [address] Jun, [facility] [id number] [place] [address] Jun, 2011 [facility] [address] [id number] [place] [address] Jun, [facility] [id number] [place] [address] Jun, [facility] [id number] [place] [address] Jun, [facility] [id number] [place] [address] Jun, [facility] [id number] [place] [address] Jun, [facility] [id number] [place] [address] May, [facility] [id number] [place] [address] May, [facility] [id number] [place] [address] May, [facility] [id number] [place] [address] 30 Apr, 2012 [facility] [id number] [place] [address] Apr, [facility] [id number] [place] [address] Apr, [facility] [id number] [place] [address] Apr, [facility] [id number] [place] [address] Apr, [facility] [id number] [place] [address] Apr, [facility] [id number] [place] [address] Apr, [facility] [id number] [place] [address] Apr, [facility] [id number] [place] [address] Apr, [facility] [id number] [place] [address] Mar, [facility] [id number] [place] [address] Mar, [facility] [id number] [place] [address] Mar, [facility] [id number] [place] [address] Mar, [facility] [id number] [place] [address] Feb, [facility] [id number] [place] [address] Feb, [facility] [id number] [place] [address] Feb, [facility] [id number] [place] [address] January, [facility] [id number] [place] [address] January, [facility] [id number] [place] [address] January, [facility] [id number] [place] [address] January, [facility] [id number] [place] [address] January, [facility] [id number] [place] [address] Dec, [facility] [id number] [place] [address] Dec, [facility] [id number] [place] [address] 16 Dec, 2011 [facility] [id number] [place] [address] Oct, [facility] [id number] [place] [address] Oct, [facility] [id number] [place] [address] Oct, [facility] [id number] [place] [address] Sep, [facility] [id number] [place] [address] Sep, [facility] [id number] [place] [address] Aug, [facility] [id number] [place] [address] Jul, [facility] [id number] [place] [address] Jul, [facility] [id number] [place] [address] Mar, [facility] [id number] [place] [address] Aug, [facility] [id number] [place] [address] Jul, [facility] [id number] [place] [address] Jul, [facility] [id number] [place] [address] Jul, [facility] [id number] [place] [address] Jul, [facility] [id number] [place] [address] 14 Jun, 2010 [facility] [id number] [place] [address] Jun, [facility] [id number] [place] [address] Apr, [facility] [id number] [place] [address] 11 Aug, 2009 [facility] [id number] [place] [address] Jul, [facility] [id number] [place] [address] 17 Jul, 2009 [facility] [id number] [place] [address] Jul, [facility] [id number] [place] [address] Jun, [facility] [id number] [place] [address] 10 May, 2009 [facility] [id number] [place] [address] 14 Dec, 2008 [facility] [id number] [place] [address] Nov, [facility] [id number] [place] [address] Oct, [facility] [id number] [place] [address] Aug, [facility] [id number] [place] [address] Aug, [facility] [id number] [place] [address] Jun, IMMUNIZATIONS No Known Immunizations SOCIAL HISTORY Never Assessed REASON FOR VISIT PLAN OF CARE VITAL SIGNS Weight 339 lbs 2013-11-19 Temperature 98 degrees Fahrenheit 2013-11-19 Heart Rate 106 bpm 2013-11-19 Respiratory Rate 32 2013-11-19 Blood pressure systolic 132 mmHg 2013-11-19 Blood pressure diastolic 64 mmHg 2013-11-19 MEDICATIONS Unknown Medications RESULTS No Results PROCEDURES Procedure Date Ordered Result Body Site MEASURE BLOOD OXYGEN LEVEL Nov 19, 2013 INSTRUCTIONS MEDICATIONS ADMINISTERED No Known Medications [...] x 3 day s 04/2012 Hospitalization History [facility]- Right wrist injury 03/29/2018
--- OUTSIDE RECORDS SUMMARY | 2020-04-09 00:22 | XMS REPORT ---
Author Author Yue Kateryna Doctor Organization [facility] Address Unknown Phone Unavailable Care Team Providers Care Bowling Floor Manager Name Role Phone Migration, Doctor Unavailable Unavailable PROBLEMS Type Condition ICD9-CM Code [id number] Code Onset Dates Condition S tatus SNOMED Code Problem Irregular menses N92.6 Active 801 75537 Problem Migraine with aura and without status migrainosu s, not intractable G43.109 Active 2687951 Problem Uncontrolled type 2 diabetes mellitus with hyperglycemia E11.65 Active 492281737 Problem Morbid obesity due to excess calories E66.01 Active 896879766 Problem RLS (restless legs syndrome) G25.81 A ctive 75275437 Problem Morbid obesity E66.01 Active 45343 6002 ALLERGIES No Information ENCOUNTERS Encounter Location Date Diagnosis [facility] [address] [address] 03 Nov, 2019 [facility] [address] [address] 02 Nov, 2019 RLS (restless legs syndrome) G25.81 [facility] [address] [address] 15 Oct, 2019 [facility] [address] [facility] [place] [id number] [address] [place] [address] 09 Oct, 2019 Influenza J11.1 [facility] [address] [address] 16 Sep, 2019 [facility] [address] [address] Sep, [facility] [address] [address] Sep, [facility] [address] [address] 13 Sep, 2019 [facility] [address] [address] 10 Sep, 2019 Pneumonia of left lower lobe due to infe ctious organism J18.9 and Migraine with aura and without status migrainosus, not intractable G43.109 [facility] [address] [address] 10 Sep, 2019 [facility] [address] [address] 10 Sep, 2019 [facility] [address] [address] 08 Sep, 2019 [facility] [address] [address] 08 Sep, 2019 [place] [address] [address] 08 Sep, 2019 Pneumonia of left lower lobe due to infe ctious organism J18.9 and Migraine with aura and without status migrainosus, not intractable G43.109 [place] [address] [address] Aug, Irregular menses N92.6 ; Well woman exam Z01.419 ; Pelvic cramping R10.2 and Left breast lump N63.20 [place] [address] [address] Aug, [place] [address] [address] Aug, Well woman exam Z01.419 ; Left breast nenita mp N63.20 ; Irregular menses N92.6 ; Encounter for immunization Z23 ; Pelvic cramping R10.2 and Screening for cervical cancer Z12.4 [place] [address] [address] Aug, [place] [address] [address] Aug, [place] [address] [address] Aug, [place] [address] [address] Jul, [facility] [address] [address] Jun, [facility] [address] [address] Jun, [facility] [address] [address] Jun, [facility] [address] [address] Jun, BMI 50.0-59.9, adult Z68.43 [place] [address] [address] Jun, [facility] [address] [facility] [place] [id number] [address] [place] [address] May, Acute non-recurrent sinusiti s, unspecified location J01.90 ; Diarrhea, unspecified R19.7 ; Vomiting, unspecified R11.10 and Morbid obesity E66.01 [facility] [address] [address] Apr, [place] [address] [address] Apr, Anemia due to other cause, not classifie d D64.89 and D-dimer, elevated R79.89 [place] [address] [address] Apr, [facility] [address] [address] Apr, [facility] [address] [address] Mar, Anemia due to other cause, not classifie d D64.89 and D-dimer, elevated R79.89 [place] [address] [address] Mar, Leg edema, right R60.0 ; High risk medic ation use Z79.899 and Morbid obesity E66.01 [place] [address] [address] Mar, BMI 50.0-59.9, adult Z68.43 [place] [address] [address] Mar, [place] [address] [address] January, Uncontrolled type 2 diabetes mellitus wi th hyperglycemia E11.65 ; RLS (restless legs syndrome) G25.81 and Morbid obesity E66.01 [place] [address] [address] 15 Oct, 2018 Lipoma of right lower extremity D17.23 [place] [address] [address] Oct, Lipoma of right lower extremity D17.23 [place] [address] [address] Sep, [place] [address] [address] Sep, [place] [address] [address] Sep, [place] [address] [address] Sep, [place] [address] [address] Sep, [place] [address] [address] Aug, Uncontrolled type 2 diabetes mellitus wi th hyperglycemia E11.65 ; Morbid obesity due to excess calories E66.01 ; Lipoma of torso D17.1 and BMI 50.0-59.9, adult Z68.43 [place] [address] [address] Jun, Encounter for immunization Z23 [place] [address] [id number] [place] [address] Jul, [facility] [address] [place] [id number] [place] [address] Jun, Encounter for [facility] Z23 [facility] [address] [id number] [place] [address] 30 May, 2016 [facility] [address] [place] [id number] [place] [address] Jun, Encounter for [facility] Z23 [facility] [address] [place] [id number] [place] [address] 29 May, 2015 [facility] [address] [place] [id number] [place] [address] May, [facility] [address] [place] [id number] [place] [address] Apr, [facility] [address] [place] [id number] [place] [address] Feb, [facility] [address] [place] [id number] [place] [address] Feb, [facility] [address] [place] [id number] [place] [address] Feb, [facility] [address] [place] [id number] [place] [address] January, [facility] [address] [place] [id number] [place] [address] January, [facility] [address] [id number] [place] [address] Dec, [facility] [address] [place] [id number] [place] [address] Dec, [facility] [address] [place] [id number] [place] [address] Nov, [facility] [address] [place] [id number] [place] [address] Nov, [facility] [address] [place] [id number] [place] [address] Nov, [facility] [address] [facility] [place] [id number] [place] [address] Nov, [facility] [address] [id number] [place] [address] Nov, [facility] [address] [id number] [place] [address] Nov, [facility] [address] [id number] [place] [address] Nov, [facility] [address] [facility] [place] [id number] [place] [address] Oct, [facility] [address] [id number] [place] [address] Oct, [facility] [address] [id number] [place] [address] Oct, [facility] [address] [id number] [place] [address] Oct, [facility] [address] [id number] [place] [address] Oct, [facility] [address] [id number] [place] [address] Sep, [facility] [address] [id number] [place] [address] Sep, [facility] [address] [id number] [place] [address] Sep, [facility] [address] [facility] [place] [id number] [place] [address] Sep, [facility] [address] [id number] [place] [address] Sep, [facility] [address] [id number] [place] [address] Sep, [facility] [address] [id number] [place] [address] Sep, [facility] [address] [id number] [place] [address] Sep, [facility] [address] [id number] [place] [address] Sep, [facility] [address] [id number] [place] [address] Sep, [facility] [address] [id number] [place] [address] Aug, [facility] [address] [id number] [place] [address] Aug, [facility] [address] [id number] [place] [address] Aug, [facility] [address] [id number] [place] [address] Aug, [facility] [address] [id number] [place] [address] Aug, [facility] [address] [id number] [place] [address] Aug, [facility] [address] [id number] [place] [address] Aug, [facility] [address] [id number] [place] [address] Aug, [facility] [address] [id number] [place] [address] Aug, [facility] [address] [id number] [place] [address] Aug, [facility] [address] [id number] [place] [address] Aug, [facility] [address] [id number] [place] [address] Aug, [facility] [address] [id number] [place] [address] Aug, [facility] [address] [id number] [place] [address] 18 Aug, 2014 [facility] [address] [id number] [place] [address] 17 Aug, 2014 [facility] [address] [id number] [place] [address] Aug, [facility] [address] [id number] [place] [address] 16 Aug, 2014 [facility] [address] [id number] [place] [address] 16 Aug, 2014 [facility] [address] [id number] [place] [address] Aug, [facility] [address] [id number] [place] [address] Aug, [facility] [address] [id number] [place] [address] 08 Aug, 2014 [facility] [address] [id number] [place] [address] Aug, [facility] [address] [id number] [place] [address] 05 Aug, 2014 [facility] [address] [id number] [place] [address] Aug, [facility] [address] [id number] [place] [address] Jul, [facility] [address] [id number] [place] [address] Jul, [facility] [address] [id number] [place] [address] Jun, [facility] [address] [id number] [place] [address] Jun, [facility] [address] [id number] [place] [address] Jun, [facility] [address] [id number] [place] [address] Jun, [facility] [address] [id number] [place] [address] 15 Jun, 2013 [facility] [address] [facility] [place] [id number] [place] [address] 15 Jun, 2013 [facility] [address] [facility] [place] [id number] [place] [address] 14 Jun, 2013 [facility] [address] [id number] [place] [address] 14 Jun, 2014 [facility] [address] [facility] [place] [id number] [place] [address] 13 Jun, 2013 [facility] [address] [facility] [place] [id number] [place] [address] 13 Jun, 2013 [facility] [address] [id number] [place] [address] 13 Jun, 2013 [facility] [address] [id number] [place] [address] 13 Jun, 2013 [facility] [address] [id number] [place] [address] 06 Jun, 2013 [facility] [address] [facility] [place] [id number] [place] [address] 06 Jun, 2014 [facility] [address] [id number] [place] [address] 26 May, 2013 [facility] [address] [id number] [place] [address] 26 May, 2013 [facility] [address] [id number] [place] [address] 22 May, 2013 [facility] [address] [facility] [place] [id number] [place] [address] 22 May, 2013 [facility] [address] [id number] [place] [address] 04 Sep, 2013 [facility] [address] [id number] [place] [address] 04 Sep, 2013 [facility] [address] [id number] [place] [address] May, [facility] [address] [facility] [place] [id number] [place] [address] May, [facility] [address] [facility] [place] [id number] [place] [address] Apr, [facility] [address] [facility] [place] [id number] [place] [address] Apr, [facility] [address] [id number] [facility] [address] Apr, [facility] [address] [facility] [place] [id number] [facility] [address] Apr, [facility] [address] [id number] [place] [address] Apr, [facility] [address] [id number] [place] [address] Apr, [facility] [address] [id number] [place] [address] Apr, [facility] [address] [id number] [place] [address] Apr, [facility] [address] [id number] [place] [address] Apr, [facility] [address] [id number] [place] [address] Mar, [facility] [address] [id number] [place] [address] Mar, [facility] [address] [id number] [place] [address] Mar, [facility] [address] [facility] [place] [id number] [place] [address] Feb, [facility] [address] [id number] [place] [address] Feb, [facility] [address] [id number] [place] [address] Feb, [facility] [address] [id number] [place] [address] Feb, [facility] [address] [facility] [place] [id number] [facility] [address] Feb, [facility] [address] [facility] [place] [id number] [facility] [address] Feb, [facility] [address] [id number] [facility] [place] [address] Feb, [facility] [address] [id number] [facility] [place] [address] Feb, [facility] [address] [facility] [place] [id number] [facility] [address] Feb, [facility] [address] [id number] [place] [address] Feb, [facility] [address] [id number] [place] [address] Feb, [facility] [address] [id number] [place] [address] Feb, [facility] [address] [id number] [place] [address] Feb, [facility] [address] [id number] [place] [address] Feb, [facility] [address] [id number] [place] [address] Feb, [facility] [address] [id number] [place] [address] Feb, [facility] [address] [id number] [place] [address] January, [facility] [address] [id number] [place] [address] January, [facility] [address] [id number] [place] [address] January, [facility] [address] [id number] [place] [address] January, [facility] [address] [id number] [place] [address] January, [facility] [address] [id number] [place] [address] January, [facility] [address] [facility] [place] [id number] [place] [address] January, [facility] [address] [facility] [place] [id number] [place] [address] January, [facility] [address] [facility] [place] [id number] [place] [address] January, [facility] [address] [id number] [place] [address] January, [facility] [address] [id number] [place] [address] January, [facility] [address] [id number] [place] [address] January, [facility] [address] [id number] [place] [address] January, [facility] [address] [id number] [place] [address] January, [facility] [address] [id number] [place] [address] January, [facility] [address] [id number] [place] [address] January, [facility] [address] [id number] [place] [address] January, [facility] [address] [id number] [place] [address] January, [facility] [address] [id number] [place] [address] January, [facility] [address] [facility] [place] [id number] [place] [address] January, [facility] [address] [id number] [place] [address] January, [facility] [address] [id number] [place] [address] January, [facility] [place] [facility] [address] [id number] [place] [address] January, [facility] [place] [facility] [address] [id number] [place] [address] January, [facility] [place] [facility] [address] [id number] [place] [address] January, [facility] [place] [facility] [address] [id number] [place] [address] January, [facility] [place] [facility] [address] [id number] [place] [address] Dec, [facility] [place] [facility] [address] [id number] [place] [address] Dec, [facility] [place] [facility] [address] [id number] [place] [address] Dec, [facility] [place] [facility] [address] [id number] [place] [address] Dec, [facility] [place] [facility] [address] [id number] [place] [address] Dec, [facility] [place] [facility] [address] [id number] [place] [address] Dec, [facility] [place] [facility] [address] [id number] [place] [address] Dec, [facility] [place] [facility] [address] [id number] [place] [address] Dec, [facility] [facility] [address] [id number] [place] [address] Dec, [facility] [place] [facility] [address] [id number] [place] [address] Dec, [facility] [place] [facility] [address] [id number] [place] [address] Dec, [facility] [address] [id number] [place] [address] Dec, [facility] [address] [facility] [place] [id number] [facility] [address] Dec, [facility] [facility] [address] [facility] [place] [id number] [facility] [address] Dec, [facility] [address] [id number] [facility] [address] Dec, [facility] [place] [facility] [address] [id number] [place] [address] Dec, [facility] [place] [facility] [address] [facility] [place] [id number] [facility] [address] Dec, [facility] [place] [facility] [address] [id number] [place] [address] Dec, [facility] [facility] [address] [id number] [facility] [place] [address] Dec, [facility] [facility] [address] [id number] [facility] [place] [address] Dec, [facility] [place] [facility] [address] [id number] [facility] [place] [address] Dec, [facility] [facility] [address] [id number] [place] [address] Dec, [facility] [place] [facility] [address] [id number] [place] [address] Nov, [facility] [facility] [address] [id number] [place] [address] Nov, [facility] [place] [facility] [address] [id number] [facility] [place] [address] Nov, [facility] [place] [facility] [address] [id number] [place] [address] Nov, [facility] [place] [facility] [address] [id number] [place] [address] Nov, [facility] [place] [facility] [address] [id number] [place] [address] Nov, [facility] [facility] [address] [id number] [place] [address] 22 Nov, 2013 [facility] [facility] [address] [facility] [place] [id number] [place] [address] Nov, [facility] [address] [id number] [place] [address] Nov, [facility] [facility] [address] [facility] [id number] [place] [address] 18 Nov, 2013 [facility] [address] [id number] [place] [address] 18 Nov, 2013 [facility] [address] [id number] [place] [address] Nov, [facility] [address] [id number] [place] [address] Nov, [facility] [address] [id number] [place] [address] Nov, [facility] [address] [id number] [place] [address] Nov, [facility] [address] [id number] [place] [address] Nov, [facility] [address] [id number] [place] [address] Oct, [facility] [address] [id number] [place] [address] Oct, [facility] [address] [id number] [place] [address] Oct, [facility] [address] [facility] [id number] [place] [address] Oct, [facility] [address] [id number] [place] [address] 24 Oct, 2013 [facility] [address] [id number] [place] [address] Oct, [facility] [address] [id number] [place] [address] Oct, [facility] [address] [facility] [place] [id number] [place] [address] Oct, [facility] [address] [facility] [place] [id number] [place] [address] Oct, [facility] [address] [id number] [place] [address] Oct, [facility] [address] [id number] [place] [address] Oct, [facility] [address] [facility] [place] [id number] [place] [address] Oct, [facility] [address] [id number] [place] [address] Oct, [facility] [address] [id number] [place] [address] Oct, [facility] [address] [id number] [place] [address] Oct, [facility] [address] [id number] [place] [address] Sep, [facility] [address] [id number] [place] [address] Sep, [facility] [address] [id number] [place] [address] Sep, [facility] [address] [id number] [place] [address] Sep, [facility] [address] [id number] [place] [address] Sep, [facility] [address] [id number] [place] [address] Sep, [facility] [address] [id number] [place] [address] Sep, [facility] [address] [id number] [place] [address] Sep, [facility] [address] [id number] [place] [address] Sep, [facility] [address] [id number] [place] [address] Sep, [facility] [address] [id number] [place] [address] Sep, [facility] [address] [id number] [place] [address] Sep, [facility] [address] [id number] [place] [address] Sep, [facility] [address] [id number] [place] [address] Aug, [facility] [address] [id number] [place] [address] Aug, [facility] [address] [id number] [place] [address] Aug, [facility] [address] [id number] [place] [address] 24 Aug, 2013 [facility] [address] [id number] [place] [address] Aug, [facility] [address] [id number] [place] [address] 17 Aug, 2013 [facility] [address] [id number] [place] [address] 16 Aug, 2013 [facility] [address] [id number] [place] [address] 16 Aug, 2013 [facility] [address] [id number] [place] [address] 12 Aug, 2013 [facility] [address] [id number] [place] [address] 12 Aug, 2013 [facility] [address] [id number] [place] [address] 10 Aug, 2013 [facility] [address] [id number] [place] [address] 10 Aug, 2013 [facility] [address] [id number] [place] [address] 02 Aug, 2013 [facility] [address] [id number] [place] [address] Aug, [facility] [address] [id number] [place] [address] Jul, [facility] [address] [id number] [place] [address] Jul, [facility] [address] [id number] [place] [address] 18 Jul, 2013 [facility] [address] [id number] [place] [address] 18 Jul, 2013 [facility] [address] [id number] [place] [address] 14 Jul, 2013 [facility] [address] [id number] [place] [address] 14 Jul, 2013 [facility] [address] [id number] [place] [address] 14 Jul, 2013 [facility] [address] [id number] [place] [address] 14 Jul, 2013 [facility] [address] [id number] [place] [address] 07 Jul, 2013 [facility] [address] [id number] [place] [address] 07 Jul, 2013 [facility] [address] [id number] [place] [address] 06 Jul, 2013 [facility] [address] [id number] [place] [address] 06 Jul, 2013 [facility] [address] [id number] [place] [address] 05 Jul, 2013 [facility] [address] [id number] [place] [address] 05 Jul, 2013 [facility] [address] [id number] [place] [address] 23 Jun, 2013 [facility] [address] [id number] [place] [address] 23 Jun, 2013 [facility] [address] [id number] [place] [address] 15 Jun, 2013 [facility] [address] [id number] [place] [address] 15 Jun, 2013 [facility] [address] [id number] [place] [address] 14 Jun, 2013 [facility] [address] [id number] [place] [address] 24 May, 2012 [facility] [address] [id number] [place] [address] 20 May, 2012 [facility] [address] [id number] [place] [address] 20 May, 2012 [facility] [address] [id number] [place] [address] 20 May, 2012 [facility] [address] [id number] [place] [address] 19 May, 2012 [facility] [address] [id number] [place] [address] 13 May, 2012 [facility] [address] [id number] [place] [address] 12 May, 2012 [facility] [address] [id number] [place] [address] 12 May, 2012 [facility] [address] [id number] [place] [address] 11 May, 2012 [facility] [address] [id number] [place] [address] 11 May, 2012 [facility] [address] [id number] [place] [address] 11 May, 2012 [facility] [address] [id number] [place] [address] 09 Sep, 2012 [facility] [address] [id number] [place] [address] May, [facility] [address] [id number] [facility] [address] May, [facility] [address] [id number] [facility] [address] May, [facility] [address] [id number] [place] [address] Apr, [facility] [address] [facility] [id number] [place] [address] Apr, [facility] [address] [id number] [place] [address] Apr, [facility] [address] [id number] [place] [address] Apr, [facility] [address] [id number] [place] [address] Apr, [facility] [address] [id number] [place] [address] Apr, [facility] [address] [id number] [place] [address] Apr, [facility] [address] [id number] [place] [address] Apr, [facility] [address] [id number] [place] [address] Apr, [facility] [address] [id number] [place] [address] Mar, [facility] [address] [id number] [place] [address] Mar, [facility] [address] [id number] [place] [address] Mar, [facility] [address] [id number] [place] [address] Mar, [facility] [address] [id number] [place] [address] Mar, [facility] [address] [facility] [place] [id number] [place] [address] Mar, [facility] [address] [facility] [place] [id number] [facility] [address] Mar, [facility] [address] [id number] [place] [address] Mar, [facility] [address] [id number] [facility] [address] Mar, [facility] [address] [facility] [place] [id number] [place] [address] Mar, [facility] [address] [id number] [place] [address] Mar, [facility] [address] [id number] [place] [address] Feb, [facility] [address] [id number] [place] [address] Feb, [facility] [address] [id number] [place] [address] Feb, [facility] [address] [id number] [place] [address] Feb, [facility] [address] [id number] [place] [address] Feb, [facility] [address] [id number] [place] [address] Feb, [facility] [address] [facility] [place] [id number] [place] [address] Feb, [facility] [address] [id number] [place] [address] Feb, [facility] [address] [id number] [place] [address] Feb, [facility] [address] [id number] [place] [address] January, [facility] [address] [id number] [facility] [address] January, [facility] [address] [id number] [place] [address] January, [facility] [address] [id number] [place] [address] January, [facility] [address] [id number] [place] [address] January, [facility] [address] [id number] [place] [address] January, [facility] [address] [id number] [place] [address] January, [facility] [address] [id number] [place] [address] January, [facility] [address] [id number] [place] [address] January, [facility] [address] [id number] [place] [address] January, [facility] [address] [id number] [place] [address] January, [facility] [address] [id number] [place] [address] January, [facility] [address] [id number] [place] [address] January, [facility] [address] [id number] [place] [address] January, [facility] [address] [id number] [place] [address] January, [facility] [address] [id number] [place] [address] January, [facility] [address] [id number] [place] [address] January, [facility] [address] [id number] [place] [address] January, [facility] [address] [id number] [place] [address] January, [facility] [address] [id number] [place] [address] January, [facility] [address] [id number] [place] [address] January, [facility] [address] [id number] [place] [address] January, [facility] [address] [id number] [place] [address] January, [facility] [address] [id number] [place] [address] Dec, [facility] [address] [id number] [place] [address] Dec, [facility] [address] [id number] [place] [address] Dec, [facility] [address] [id number] [place] [address] Dec, [facility] [address] [id number] [place] [address] Dec, [facility] [address] [id number] [place] [address] Nov, [facility] [address] [id number] [place] [address] Oct, [facility] [address] [id number] [place] [address] Oct, [facility] [address] [id number] [place] [address] Oct, [facility] [address] [id number] [place] [address] Oct, [facility] [address] [id number] [place] [address] Oct, [facility] [address] [id number] [place] [address] Sep, [facility] [address] [id number] [place] [address] Sep, [facility] [address] [id number] [place] [address] Sep, [facility] [address] [id number] [place] [address] Aug, [facility] [address] [id number] [place] [address] Aug, [facility] [address] [id number] [place] [address] Aug, [facility] [address] [id number] [place] [address] Aug, [facility] [address] [id number] [place] [address] Jul, [facility] [address] [id number] [place] [address] Jul, [facility] [address] [id number] [place] [address] Jul, [facility] [id number] [place] [address] Jul, [facility] [id number] [place] [address] Jul, [facility] [address] [id number] [place] [address] Jul, [facility] [address] [id number] [place] [address] Jun, [facility] [address] [id number] [place] [address] 18 Jun, 2012 [facility] [address] [id number] [place] [address] Jun, [facility] [id number] [place] [address] Jun, [facility] [address] [id number] [place] [address] Jun, 2011 [facility] [address] [id number] [place] [address] Jun, [facility] [address] [id number] [place] [address] Jun, [facility] [address] [id number] [place] [address] Jun, [facility] [address] [id number] [place] [address] Jun, [facility] [address] [id number] [place] [address] Jun, [facility] [address] [id number] [place] [address] May, [facility] [address] [id number] [place] [address] May, [facility] [address] [id number] [place] [address] May, [facility] [address] [id number] [place] [address] 30 Apr, 2012 [facility] [address] [id number] [place] [address] Apr, [facility] [address] [id number] [place] [address] Apr, [facility] [address] [id number] [place] [address] Apr, [facility] [address] [id number] [place] [address] Apr, [facility] [address] [id number] [place] [address] Apr, [facility] [address] [id number] [place] [address] Apr, [facility] [address] [id number] [place] [address] Apr, [facility] [address] [id number] [place] [address] Apr, [facility] [address] [id number] [place] [address] Mar, [facility] [address] [id number] [place] [address] Mar, [facility] [address] [id number] [place] [address] Mar, [facility] [address] [id number] [place] [address] Mar, [facility] [address] [id number] [place] [address] Feb, [facility] [address] [id number] [place] [address] Feb, [facility] [address] [id number] [place] [address] Feb, [facility] [address] [id number] [place] [address] January, [facility] [address] [id number] [place] [address] January, [facility] [address] [id number] [place] [address] January, [facility] [address] [id number] [place] [address] January, [facility] [address] [id number] [place] [address] January, [facility] [address] [id number] [place] [address] Dec, [facility] [address] [id number] [place] [address] Dec, [facility] [address] [id number] [place] [address] 16 Dec, 2011 [facility] [address] [id number] [place] [address] Oct, [facility] [address] [id number] [place] [address] Oct, [facility] [address] [id number] [place] [address] Oct, [facility] [address] [id number] [place] [address] Sep, [facility] [address] [id number] [place] [address] Sep, [facility] [address] [id number] [place] [address] Aug, [facility] [id number] [place] [address] Jul, [facility] [id number] [place] [address] Jul, [facility] [id number] [place] [address] Mar, [facility] [address] [id number] [place] [address] Aug, [facility] [id number] [place] [address] Jul, [facility] [address] [id number] [place] [address] Jul, [facility] [id number] [place] [address] Jul, [facility] [address] [id number] [place] [address] Jul, [facility] [address] [id number] [place] [address] 14 Jun, 2010 [facility] [address] [id number] [place] [address] Jun, [facility] [address] [id number] [place] [address] Apr, [facility] [address] [id number] [place] [address] 11 Aug, 2009 [facility] [id number] [place] [address] Jul, [facility] [id number] [place] [address] Jul, [facility] [id number] [place] [address] Jul, [facility] [id number] [place] [address] Jun, [facility] [id number] [place] [address] May, [facility] [id number] [place] [address] 14 Dec, 2008 [facility] [id number] [place] [address] Nov, [facility] [id number] [place] [address] Oct, [facility] [id number] [place] [address] Aug, [facility] [id number] [place] [address] Aug, [facility] [id number] [place] [address] Jun, IMMUNIZATIONS No Known Immunizations SOCIAL HISTORY Never Assessed REASON FOR VISIT PLAN OF CARE VITAL SIGNS Height 66 in 2013-12-11 Weight 345.88 lbs 2013-12-11 Temperature 97.2 degrees Fahrenheit 2013-12-11 Heart Rate 84 bpm 2013-12-11 Respiratory Rate 24 2013-12-11 Blood pressure systolic 102 mmHg 2013-12-11 Blood pressure diastolic 69 mmHg 2013-12-11 MEDICATIONS Unknown Medications RESULTS No Results PROCEDURES [...] 3 day s 04/[address] [facility] [place] [facility] [place]- Right wrist injury 03/29/2018
--- OUTSIDE RECORDS SUMMARY | 2020-04-09 00:23 | XMS REPORT ---
Author Author Yue Kateryna Doctor Organization [facility] Address Unknown Phone Unavailable Care Team Providers Care Physical Education Teacher Name Role Phone Migration, Doctor Unavailable Unavailable PROBLEMS Type Condition ICD9-CM Code PHH51-GT Code Onset Dates Condition S tatus SNOMED Code Problem Irregular menses N92.6 Active 801 14379 Problem Migraine with aura and without status migrainosu s, not intractable G43.109 Active 5309295 Problem Uncontrolled type 2 diabetes mellitus with hyperglycemia E11.65 Active 754576054 Problem Morbid obesity due to excess calories E66.01 Active 299034678 Problem RLS (restless legs syndrome) G25.81 A ctive 29244894 Problem Morbid obesity E66.01 Active 23146 6002 ALLERGIES No Information ENCOUNTERS Encounter Location Date Diagnosis [facility] [address] [address] 03 Nov, 2019 [facility] [address] [address] 02 Nov, 2019 RLS (restless legs syndrome) G25.81 [facility] [address] [address] 15 Oct, 2019 [facility] [address] [facility] [id number] [address] [place] [address] 09 Oct, 2019 Influenza J11.1 [facility] [address] [address] 16 Sep, 2019 [facility] [address] [address] Sep, [facility] [address] [address] Sep, [facility] [address] [address] 13 Sep, 2019 [facility] [address] [address] 10 Sep, 2019 Pneumonia of left lower lobe due to infe ctious organism J18.9 and Migraine with aura and without status migrainosus, not intractable G43.109 [facility] [address] [address] 10 Sep, 2019 [facility] [address] [address] 10 Sep, 2019 [facility] [address] [address] 08 Sep, 2019 [facility] [address] [address] 08 Sep, 2019 [place] [address] [address] 08 Sep, 2019 Pneumonia of left lower lobe due to infe ctious organism J18.9 and Migraine with aura and without status migrainosus, not intractable G43.109 [place] [address] [address] Aug, Irregular menses N92.6 ; Well woman exam Z01.419 ; Pelvic cramping R10.2 and Left breast lump N63.20 [place] [address] [address] Aug, [place] [address] [address] Aug, Well woman exam Z01.419 ; Left breast nenita mp N63.20 ; Irregular menses N92.6 ; Encounter for immunization Z23 ; Pelvic cramping R10.2 and Screening for cervical cancer Z12.4 [place] [address] [address] Aug, [place] [address] [address] Aug, [place] [address] [address] Aug, [place] [address] [address] Jul, [facility] [address] [address] Jun, [facility] [address] [address] Jun, [facility] [address] [address] Jun, [facility] [address] [address] Jun, BMI 50.0-59.9, adult Z68.43 [place] [address] [address] Jun, [facility] [address] [facility] [id number] [address] [place] [address] May, Acute non-recurrent sinusiti s, unspecified location J01.90 ; Diarrhea, unspecified R19.7 ; Vomiting, unspecified R11.10 and Morbid obesity E66.01 [facility] [address] [address] Apr, [place] [address] [address] Apr, Anemia due to other cause, not classifie d D64.89 and D-dimer, elevated R79.89 [place] [address] [address] Apr, [facility] [address] [address] Apr, [facility] [address] [address] Mar, Anemia due to other cause, not classifie d D64.89 and D-dimer, elevated R79.89 [place] [address] [address] Mar, Leg edema, right R60.0 ; High risk medic ation use Z79.899 and Morbid obesity E66.01 [place] [address] [address] Mar, BMI 50.0-59.9, adult Z68.43 [place] [address] [address] Mar, [place] [address] [address] January, Uncontrolled type 2 diabetes mellitus wi th hyperglycemia E11.65 ; RLS (restless legs syndrome) G25.81 and Morbid obesity E66.01 [place] [address] [address] 15 Oct, 2018 Lipoma of right lower extremity D17.23 [place] [address] [address] Oct, Lipoma of right lower extremity D17.23 [place] [address] [address] Sep, [place] [address] [address] Sep, [place] [address] [address] Sep, [place] [address] [address] Sep, [place] [address] [address] Sep, [place] [address] [address] Aug, Uncontrolled type 2 diabetes mellitus wi th hyperglycemia E11.65 ; Morbid obesity due to excess calories E66.01 ; Lipoma of torso D17.1 and BMI 50.0-59.9, adult Z68.43 [place] [address] [address] Jun, Encounter for immunization Z23 [place] [address] [id number] [place] [address] Jul, [facility] [address] [place] [id number] [place] [address] Jun, [facility]counter for immunization Z23 [facility] [address] [id number] [place] [address] 30 May, 2016 [facility] [address] [place] [id number] [place] [address] Jun, [facility] for immunization Z23 [facility] [address] [place] [id number] [place] [address] 29 May, 2015 [facility] [address] [id number] [place] [address] May, [facility] [address] [place] [id number] [place] [address] Apr, [facility] [address] [id number] [place] [address] Feb, [facility] [address] [place] [address] [id number] [place] [address] Feb, [facility] [address] [place] [id number] [place] [address] Feb, [facility] [address] [place] [id number] [place] [address] January, [facility] [address] [place] [address] [id number] [place] [address] January, [facility] [address] [id number] [place] [address] Dec, [facility] [address] [place] [id number] [place] [address] Dec, [facility] [address] [place] [id number] [place] [address] Nov, [facility] [place] [facility] [address] [place] [address] [id number] [place] [address] Nov, [facility] [address] [place] [id number] [place] [address] Nov, [facility] [place] [facility] [address] [facility] [id number] [place] [address] Nov, [facility] [place] [facility] [address] [id number] [place] [address] Nov, [facility] [place] [facility] [address] [id number] [place] [address] Nov, [facility] [place] [facility] [address] [id number] [place] [address] Nov, [facility] [place] [facility] [address] [facility] [id number] [place] [address] Oct, [facility] [place] [facility] [address] [id number] [place] [address] Oct, [facility] [place] [facility] [address] [id number] [place] [address] Oct, [facility] [place] [facility] [address] [id number] [place] [address] Oct, [facility] [place] [facility] [address] [id number] [place] [address] Oct, [facility] [place] [facility] [address] [id number] [place] [address] Sep, [facility] [place] [facility] [address] [id number] [place] [address] Sep, [facility] [place] [facility] [address] [id number] [place] [address] Sep, [facility] [place] [facility] [address] [facility] [id number] [place] [address] Sep, [facility] [place] [facility] [address] [id number] [place] [address] Sep, [facility] [place] [facility] [address] [id number] [place] [address] Sep, [facility] [place] [facility] [address] [id number] [place] [address] Sep, [facility] [place] [facility] [address] [id number] [place] [address] Sep, [facility] [place] [facility] [address] [id number] [place] [address] Sep, [facility] [place] [facility] [address] [id number] [place] [address] Sep, [facility] [place] [facility] [address] [id number] [place] [address] Aug, [facility] [place] [facility] [address] [id number] [place] [address] Aug, [facility] [place] [facility] [address] [id number] [place] [address] Aug, [facility] [place] [facility] [address] [id number] [place] [address] Aug, [facility] [place] [facility] [address] [id number] [place] [address] Aug, [facility] [place] [facility] [address] [id number] [place] [address] Aug, [facility] [place] [facility] [address] [id number] [place] [address] Aug, [facility] [place] [facility] [address] [id number] [place] [address] Aug, [facility] [place] [facility] [address] [id number] [place] [address] Aug, [facility] [place] [facility] [address] [id number] [place] [address] Aug, [facility] [place] [facility] [address] [id number] [place] [address] Aug, [facility] [place] [facility] [address] [id number] [place] [address] Aug, [facility] [place] [facility] [address] [id number] [place] [address] Aug, [facility] [place] [facility] [address] [id number] [place] [address] 18 Aug, 2014 [facility] [place] [facility] [address] [id number] [place] [address] 17 Aug, 2014 [facility] [place] [facility] [address] [id number] [place] [address] Aug, [facility] [place] [facility] [address] [id number] [place] [address] 16 Aug, 2014 [facility] [place] [facility] [address] [id number] [place] [address] 16 Aug, 2014 [facility] [place] [facility] [address] [id number] [place] [address] Aug, [facility] [place] [facility] [address] [id number] [place] [address] Aug, [facility] [place] [facility] [address] [id number] [place] [address] 08 Aug, 2014 [facility] [place] [facility] [address] [id number] [place] [address] Aug, [facility] [place] [facility] [address] [id number] [place] [address] 05 Aug, 2014 [facility] [place] [facility] [address] [id number] [place] [address] Aug, [facility] [place] [facility] [address] [id number] [place] [address] Jul, [facility] [place] [facility] [address] [id number] [place] [address] Jul, [facility] [place] [facility] [address] [id number] [place] [address] Jun, [facility] [place] [facility] [address] [id number] [place] [address] Jun, [facility] [place] [facility] [address] [id number] [place] [address] Jun, [facility] [place] [facility] [address] [id number] [place] [address] Jun, [facility] [place] [facility] [address] [id number] [place] [address] 15 Jun, 2013 [facility] [place] [facility] [address] [facility] [id number] [place] [address] 15 Jun, 2013 [facility] [place] [facility] [address] [facility] [id number] [place] [address] 14 Jun, 2013 [facility] [place] [facility] [address] [id number] [place] [address] 14 Jun, 2014 [facility] [place] [facility] [address] [facility] [id number] [place] [address] 13 Jun, 2013 [facility] [place] [facility] [address] [facility] [id number] [place] [address] 13 Jun, 2013 [facility] [place] [facility] [address] [id number] [place] [address] 13 Jun, 2013 [facility] [place] [facility] [address] [id number] [place] [address] 13 Jun, 2013 [facility] [place] [facility] [address] [id number] [place] [address] 06 Jun, 2013 [facility] [place] [facility] [address] [facility] [id number] [place] [address] 06 Jun, 2014 [facility] [place] [facility] [address] [id number] [place] [address] 26 May, 2013 [facility] [place] [facility] [address] [id number] [place] [address] 26 May, 2013 [facility] [place] [facility] [address] [id number] [place] [address] 22 May, 2013 [facility] [place] [facility] [address] [facility] [id number] [place] [address] 22 May, 2013 [facility] [place] [facility] [address] [id number] [place] [address] 04 Sep, 2013 [facility] [place] [facility] [address] [id number] [place] [address] 04 Sep, 2013 [facility] [place] [facility] [address] [id number] [place] [address] May, [facility] [place] [facility] [address] [facility] [id number] [place] [address] May, [facility] [place] [facility] [address] [facility] [id number] [place] [address] Apr, [facility] [place] [facility] [address] [facility] [id number] [place] [address] Apr, [facility] [place] [facility] [address] [id number] [facility] [place] [address] Apr, [facility] [place] [facility] [address] [facility] [id number] [facility] [place] [address] Apr, [facility] [place] [facility] [address] [id number] [place] [address] Apr, [facility] [place] [facility] [address] [id number] [place] [address] Apr, [facility] [place] [facility] [address] [id number] [place] [address] Apr, [facility] [place] [facility] [address] [id number] [place] [address] Apr, [facility] [place] [facility] [address] [id number] [place] [address] Apr, [facility] [place] [facility] [address] [id number] [place] [address] Mar, [facility] [place] [facility] [address] [id number] [place] [address] Mar, [facility] [place] [facility] [address] [id number] [place] [address] Mar, [facility] [place] [facility] [address] [facility] [id number] [place] [address] Feb, [facility] [place] [facility] [address] [id number] [place] [address] Feb, [facility] [place] [facility] [address] [id number] [place] [address] Feb, [facility] [place] [facility] [address] [id number] [place] [address] Feb, [facility] [place] [facility] [address] [facility] [id number] [facility] [place] [address] Feb, [facility] [place] [facility] [address] [facility] [id number] [facility] [place] [address] Feb, [facility] [place] [facility] [address] [id number] [facility] [place] [address] Feb, [facility] [place] [facility] [address] [id number] [facility] [place] [address] Feb, [facility] [place] [facility] [address] [facility] [id number] [facility] [place] [address] Feb, [facility] [place] [facility] [address] [id number] [place] [address] Feb, [facility] [place] [facility] [address] [id number] [place] [address] Feb, [facility] [place] [facility] [address] [id number] [place] [address] Feb, [facility] [place] [facility] [address] [id number] [place] [address] Feb, [facility] [place] [facility] [address] [id number] [place] [address] Feb, [facility] [place] [facility] [address] [id number] [place] [address] Feb, [facility] [place] [facility] [address] [id number] [place] [address] Feb, [facility] [place] [facility] [address] [id number] [place] [address] January, [facility] [place] [facility] [address] [id number] [place] [address] January, [facility] [place] [facility] [address] [id number] [place] [address] January, [facility] [place] [facility] [address] [id number] [place] [address] January, [facility] [place] [facility] [address] [id number] [place] [address] January, [facility] [place] [facility] [address] [id number] [place] [address] January, [facility] [place] [facility] [address] [facility] [id number] [place] [address] January, [facility] [place] [facility] [address] [facility] [id number] [place] [address] January, [facility] [place] [facility] [address] [facility] [id number] [place] [address] January, [facility] [place] [facility] [address] [id number] [place] [address] January, [facility] [place] [facility] [address] [id number] [place] [address] January, [facility] [place] [facility] [address] [id number] [place] [address] January, [facility] [place] [facility] [address] [id number] [place] [address] January, [facility] [place] [facility] [address] [id number] [place] [address] January, [facility] [place] [facility] [address] [id number] [place] [address] January, [facility] [place] [facility] [address] [id number] [place] [address] January, [facility] [place] [facility] [address] [id number] [place] [address] January, [facility] [place] [facility] [address] [id number] [place] [address] January, [facility] [place] [facility] [address] [id number] [place] [address] January, [facility] [place] [facility] [address] [facility] [id number] [place] [address] January, [facility] [place] [facility] [address] [id number] [place] [address] January, [facility] [place] [facility] [address] [id number] [place] [address] January, [facility] [place] [facility] [address] [id number] [place] [address] January, [facility] [place] [facility] [address] [id number] [place] [address] January, [facility] [place] [facility] [address] [id number] [place] [address] January, [facility] [place] [facility] [address] [id number] [place] [address] January, [facility] [place] [facility] [address] [id number] [place] [address] Dec, [facility] [place] [facility] [address] [id number] [place] [address] Dec, [facility] [place] [facility] [address] [id number] [place] [address] Dec, [facility] [place] [facility] [address] [id number] [place] [address] Dec, [facility] [place] [facility] [address] [id number] [place] [address] Dec, [facility] [place] [facility] [address] [id number] [place] [address] Dec, [facility] [place] [facility] [address] [id number] [place] [address] Dec, [facility] [place] [facility] [address] [id number] [place] [address] Dec, [facility] [place] [facility] [address] [id number] [place] [address] Dec, [facility] [place] [facility] [address] [id number] [place] [address] Dec, [facility] [place] [facility] [address] [id number] [place] [address] Dec, [facility] [place] [facility] [address] [id number] [place] [address] Dec, [facility] [place] [facility] [address] [facility] [id number] [facility] [place] [address] Dec, [facility] [place] [facility] [address] [facility] [id number] [facility] [place] [address] Dec, [facility] [place] [facility] [address] [id number] [facility] [place] [address] Dec, [facility] [place] [facility] [address] [id number] [place] [address] Dec, [facility] [place] [facility] [address] [facility] [id number] [facility] [place] [address] Dec, [facility] [place] [facility] [address] [id number] [place] [address] Dec, [facility] [place] [facility] [address] [id number] [facility] [place] [address] Dec, [facility] [place] [facility] [address] [id number] [facility] [place] [address] Dec, [facility] [place] [facility] [address] [id number] [facility] [place] [address] Dec, [facility] [address] [facility] [id number] [place] [address] Dec, [facility] [address] [id number] [place] [address] Nov, [facility] [address] [id number] [place] [address] Nov, [facility] [address] [id number] [facility] [place] [address] Nov, [facility] [address] [id number] [place] [address] Nov, [facility] [address] [facility] [id number] [place] [address] Nov, [facility] [address] [id number] [place] [address] Nov, [facility] [address] [facility] [id number] [place] [address] 22 Nov, 2013 [facility] [address] [facility] [id number] [place] [address] Nov, [facility] [address] [id number] [place] [address] Nov, [facility] [address] [id number] [place] [address] 18 Nov, 2013 [facility] [address] [id number] [place] [address] 18 Nov, 2013 [facility] [address] [id number] [place] [address] Nov, [facility] [address] [id number] [place] [address] Nov, [facility] [address] [id number] [place] [address] Nov, [facility] [address] [id number] [place] [address] Nov, [facility] [address] [id number] [place] [address] Nov, [facility] [address] [id number] [place] [address] Oct, [facility] [address] [id number] [place] [address] Oct, [facility] [address] [id number] [place] [address] Oct, [facility] [address] [facility] [id number] [place] [address] Oct, [facility] [address] [id number] [place] [address] 24 Oct, 2013 [facility] [address] [id number] [place] [address] Oct, [facility] [address] [id number] [place] [address] Oct, [facility] [address] [facility] [id number] [place] [address] Oct, [facility] [address] [facility] [id number] [place] [address] Oct, [facility] [address] [id number] [place] [address] Oct, [facility] [address] [id number] [place] [address] Oct, [facility] [address] [facility] [id number] [place] [address] Oct, [facility] [address] [id number] [place] [address] Oct, [facility] [address] [id number] [place] [address] Oct, [facility] [address] [id number] [place] [address] Oct, [facility] [address] [id number] [place] [address] Sep, [facility] [address] [id number] [place] [address] Sep, [facility] [address] [id number] [place] [address] Sep, [facility] [address] [id number] [place] [address] Sep, [facility] [address] [id number] [place] [address] Sep, [facility] [address] [id number] [place] [address] Sep, [facility] [address] [id number] [place] [address] Sep, [facility] [address] [id number] [place] [address] Sep, [facility] [address] [id number] [place] [address] Sep, [facility] [address] [id number] [place] [address] Sep, [facility] [address] [id number] [place] [address] Sep, [facility] [address] [id number] [place] [address] Sep, [facility] [address] [id number] [place] [address] Sep, [facility] [address] [id number] [place] [address] Aug, [facility] [address] [id number] [place] [address] Aug, [facility] [id number] [place] [address] Aug, [facility] [id number] [place] [address] 24 Aug, 2013 [facility] [id number] [place] [address] Aug, [facility] [id number] [place] [address] 17 Aug, 2013 [facility] [id number] [place] [address] 16 Aug, 2013 [facility] [address] [id number] [place] [address] 16 Aug, 2013 [facility] [address] [id number] [place] [address] 12 Aug, 2013 [facility] [address] [facility] [id number] [place] [address] 12 Aug, 2013 [facility] [id number] [place] [address] 10 Aug, 2013 [facility] [address] [id number] [place] [address] 10 Aug, 2013 [facility] [address] [id number] [place] [address] 02 Aug, 2013 [facility] [address] [id number] [place] [address] Aug, [facility] [address] [id number] [place] [address] Jul, [facility] [address] [id number] [place] [address] Jul, [facility] [id number] [place] [address] 18 Jul, 2013 [facility] [address] [id number] [place] [address] 18 Jul, 2013 [facility] [id number] [place] [address] 14 Jul, 2013 [facility] [address] [id number] [place] [address] 14 Jul, 2013 [facility] [address] [id number] [place] [address] 14 Jul, 2013 [facility] [id number] [place] [address] 14 Jul, 2013 [facility] [address] [id number] [place] [address] 07 Jul, 2013 [facility] [address] [facility] [id number] [place] [address] 07 Jul, 2013 [facility] [address] [id number] [place] [address] 06 Jul, 2013 [facility] [id number] [place] [address] 06 Jul, 2013 [facility] [id number] [place] [address] 05 Jul, 2013 [facility] [id number] [place] [address] 05 Jul, 2013 [facility] [id number] [place] [address] 23 Jun, 2013 [facility] [address] [id number] [place] [address] 23 Jun, 2013 [facility] [address] [id number] [place] [address] 15 Jun, 2013 [facility] [id number] [place] [address] 15 Jun, 2013 [facility] [id number] [place] [address] 14 Jun, 2013 [facility] [address] [id number] [place] [address] 24 May, 2012 [facility] [id number] [place] [address] 20 May, 2012 [facility] [id number] [place] [address] 20 May, 2012 [facility] [id number] [place] [address] 20 May, 2012 [facility] [id number] [place] [address] 19 May, 2012 [facility] [id number] [place] [address] 13 May, 2012 [facility] [id number] [place] [address] 12 May, 2012 [facility] [id number] [place] [address] 12 May, 2012 [facility] [address] [id number] [place] [address] 11 May, 2012 [facility] [id number] [place] [address] 11 May, 2012 [facility] [id number] [place] [address] 11 May, 2012 [facility] [id number] [place] [address] 09 Sep, 2012 [facility] [address] [id number] [place] [address] May, [facility] [address] [id number] [facility] [place] [address] May, [facility] [id number] [facility] [place] [address] May, [facility] [id number] [place] [address] Apr, [facility] [address] [facility] [id number] [place] [address] Apr, [facility] [address] [id number] [place] [address] Apr, [facility] [id number] [place] [address] Apr, [facility] [id number] [place] [address] Apr, [facility] [id number] [place] [address] Apr, [facility] [address] [id number] [place] [address] Apr, [facility] [id number] [place] [address] Apr, [facility] [id number] [place] [address] Apr, [facility] [address] [id number] [place] [address] Mar, [facility] [address] [id number] [place] [address] Mar, [facility] [address] [id number] [place] [address] Mar, [facility] [address] [id number] [place] [address] Mar, [facility] [id number] [place] [address] Mar, [facility] [address] [facility] [id number] [place] [address] Mar, [facility] [address] [facility] [id number] [facility] [place] [address] Mar, [facility] [address] [id number] [place] [address] Mar, [facility] [id number] [facility] [place] [address] Mar, [facility] [address] [facility] [id number] [place] [address] Mar, [facility] [id number] [place] [address] Mar, [facility] [id number] [place] [address] Feb, [facility] [id number] [place] [address] Feb, [facility] [id number] [place] [address] Feb, [facility] [id number] [place] [address] Feb, [facility] [id number] [place] [address] Feb, [facility] [id number] [place] [address] Feb, [facility] [address] [facility] [id number] [place] [address] Feb, [facility] [id number] [place] [address] Feb, [facility] [address] [id number] [place] [address] Feb, [facility] [id number] [place] [address] January, [facility] [id number] [facility] [place] [address] January, [facility] [address] [id number] [place] [address] January, [facility] [id number] [place] [address] January, [facility] [address] [id number] [place] [address] January, [facility] [address] [id number] [place] [address] January, [facility] [address] [id number] [place] [address] January, [facility] [id number] [place] [address] January, [facility] [address] [id number] [place] [address] January, [facility] [address] [id number] [place] [address] January, [facility] [address] [id number] [place] [address] January, [facility] [id number] [place] [address] January, [facility] [address] [id number] [place] [address] January, [facility] [address] [id number] [place] [address] January, [facility] [address] [id number] [place] [address] January, [facility] [address] [id number] [place] [address] January, [facility] [address] [id number] [place] [address] January, [facility] [id number] [place] [address] January, [facility] [id number] [place] [address] January, [facility] [id number] [place] [address] January, [facility] [id number] [place] [address] January, [facility] [address] [id number] [place] [address] January, [facility] [address] [id number] [place] [address] January, [facility] [address] [id number] [place] [address] Dec, [facility] [address] [id number] [place] [address] Dec, [facility] [id number] [place] [address] Dec, [facility] [address] [id number] [place] [address] Dec, [facility] [address] [id number] [place] [address] Dec, [facility] [address] [facility] [id number] [place] [address] Nov, [facility] [address] [id number] [place] [address] Oct, [facility] [address] [id number] [place] [address] Oct, [facility] [address] [id number] [place] [address] Oct, [facility] [address] [id number] [place] [address] Oct, [facility] [address] [id number] [place] [address] Oct, [facility] [address] [id number] [place] [address] Sep, [facility] [id number] [place] [address] Sep, [facility] [id number] [place] [address] Sep, [facility] [id number] [place] [address] Aug, [facility] [address] [id number] [place] [address] Aug, [facility] [id number] [place] [address] Aug, [facility] [address] [id number] [place] [address] Aug, [facility] [address] [id number] [place] [address] Jul, [facility] [address] [id number] [place] [address] Jul, [facility] [id number] [place] [address] Jul, [facility] [id number] [place] [address] Jul, [facility] [id number] [place] [address] Jul, [facility] [address] [id number] [place] [address] Jul, [facility] [address] [facility] [id number] [place] [address] Jun, [facility] [address] [facility] [id number] [place] [address] 18 Jun, 2012 [facility] [address] [facility] [id number] [place] [address] Jun, [facility] [id number] [place] [address] Jun, [facility] [id number] [place] [address] Jun, 2011 [facility] [address] [id number] [place] [address] Jun, [facility] [address] [id number] [place] [address] Jun, [facility] [address] [id number] [place] [address] Jun, [facility] [address] [facility] [id number] [place] [address] Jun, [facility] [address] [facility] [id number] [place] [address] Jun, [facility] [address] [facility] [id number] [place] [address] May, [facility] [address] [id number] [place] [address] May, [facility] [address] [id number] [place] [address] May, [facility] [address] [facility] [id number] [place] [address] 30 Apr, 2012 [facility] [address] [facility] [id number] [place] [address] Apr, [facility] [address] [facility] [id number] [place] [address] Apr, [facility] [address] [facility] [id number] [place] [address] Apr, [facility] [address] [facility] [id number] [place] [address] Apr, [facility] [address] [facility] [id number] [place] [address] Apr, [facility] [address] [id number] [place] [address] Apr, [facility] [address] [id number] [place] [address] Apr, [facility] [address] [facility] [id number] [place] [address] Apr, [facility] [address] [id number] [place] [address] Mar, [facility] [address] [facility] [id number] [place] [address] Mar, [facility] [address] [facility] [id number] [place] [address] Mar, [facility] [address] [facility] [id number] [place] [address] Mar, [facility] [address] [facility] [id number] [place] [address] Feb, [facility] [address] [facility] [id number] [place] [address] Feb, [facility] [address] [facility] [id number] [place] [address] Feb, [facility] [address] [facility] [id number] [place] [address] January, [facility] [address] [facility] [id number] [place] [address] January, [facility] [address] [facility] [id number] [place] [address] January, [facility] [address] [facility] [id number] [place] [address] January, [facility] [address] [facility] [id number] [place] [address] January, [facility] [address] [facility] [id number] [place] [address] Dec, [facility] [address] [facility] [id number] [place] [address] Dec, [facility] [address] [facility] [id number] [place] [address] 16 Dec, 2011 [facility] [address] [facility] [id number] [place] [address] Oct, [facility] [address] [facility] [id number] [place] [address] Oct, [facility] [address] [facility] [id number] [place] [address] Oct, [facility] [address] [facility] [id number] [place] [address] Sep, [facility] [address] [facility] [id number] [place] [address] Sep, [facility] [address] [facility] [id number] [place] [address] Aug, [facility] [id number] [place] [address] Jul, [facility] [id number] [place] [address] Jul, [facility] [id number] [place] [address] Mar, [facility] [address] [id number] [place] [address] Aug, [facility] [id number] [place] [address] Jul, [facility] [address] [id number] [place] [address] Jul, [facility] [id number] [place] [address] Jul, [facility] [address] [id number] [place] [address] Jul, [facility] [address] [id number] [place] [address] 14 Jun, 2010 [facility] [address] [id number] [place] [address] Jun, [facility] [address] [id number] [place] [address] Apr, [facility] [address] [id number] [place] [address] 11 Aug, 2009 [facility] [id number] [place] [address] 17 Jul, 2009 [facility] [id number] [place] [address] 17 Jul, 2009 [facility] [id number] [place] [address] Jul, [facility] [id number] [place] [address] 23 Jun, 2009 [facility] [address] [address] 10 May, 2009 [facility] [id number] [place] [address] 14 Dec, 2008 [facility] [id number] [place] [address] Nov, [facility] [id number] [place] [address] 10 Oct, 2008 [facility] [id number] [place] [address] 05 Aug, 2008 [facility] [id number] [place] [address] 03 Aug, 2008 [facility] [id number] [place] [address] Jun, IMMUNIZATIONS No Known Immunizations SOCIAL HISTORY Never Assessed REASON FOR VISIT PLAN OF CARE VITAL SIGNS Height 66 in 2013-10-26 Weight 339 lbs 2013-10-26 Temperature 98.3 degrees Fahrenheit 2013-10-26 Heart Rate 100 bpm 2013-10-26 Respiratory Rate 20 2013-10-26 Blood pressure systolic 104 mmHg 2013-10-26 Blood pressure diastolic 55 mmHg 2013-10-26 MEDICATIONS Unknown Medications RESULTS No Results PROCEDURES Procedure Date Ordered Result Body Site BASIC METABOLIC PANEL Oct 26, 2013 ASSAY OF MAGNESIUM Oct 26, 2013 MEASURE BLOOD OXYGEN LEVEL Oct 26, 2013 URINALYSIS, AUTO, W/O SCOPE Oct 26, 2013 VENIPUNCT, ROUTINE* Oct 26, 2013 INSTRUCTIONS MEDICATIONS ADMINISTERED No Known Medications [...] [facility] [place]- Right wrist injury 03/29/2018
--- OUTSIDE RECORDS SUMMARY | 2020-04-09 00:23 | XMS REPORT ---
Author Author Kateryna LAURENT Organization [facility] Address [address] [place] [address] Care Team Providers Care Net Web Developer Name Role Phone YAMILETH LAURENT Unavailable PROBLEMS Type Condition ICD9-CM Code [id number] Code Onset Dates Condition S tatus SNOMED Code Problem Irregular menses N92.6 Active 801 69509 Problem Migraine with aura and without status migrainosu s, not intractable G43.109 Active 1966660 Problem Uncontrolled type 2 diabetes mellitus with hyperglycemia E11.65 Active 460507898 Problem Morbid obesity due to excess calories E66.01 Active 126173054 Problem RLS (restless legs syndrome) G25.81 A ctive 72721491 Problem Morbid obesity E66.01 Active 04462 [id number] ALLERGIES No Information ENCOUNTERS Encounter Location Date Diagnosis [facility] [address] [address] Nov, [facility] [address] [address] 02 Nov, 2019 RLS (restless legs syndrome) G25.81 [facility] [id number] [place] [address] 15 Oct, 2019 [facility] [address] [facility] [id number] [address] [address] 09 Oct, 2019 Influenza J11.1 [facility] [id number] [place] [address] Sep, [facility] [address] [address] Sep, [facility] [id number] [place] [address] Sep, [facility] [address] [address] 13 Sep, 2019 [facility] [address] [address] 10 Sep, 2019 Pneumonia of left lower lobe due to infe ctious organism J18.9 and Migraine with aura and without status migrainosus, not intractable G43.109 [facility] [address] [address] 10 Sep, 2019 [facility] [address] [address] 10 Sep, 2019 [facility] [address] [address] 08 Sep, 2019 [place] [address] [address] 08 Sep, 2019 [place] [address] [address] 08 Sep, 2019 Pneumonia of left lower lobe due to infe ctious organism J18.9 and Migraine with aura and without status migrainosus, not intractable G43.109 [place] [address] [address] 31 Aug, 2019 Irregular menses N92.6 ; Well woman exam Z01.419 ; Pelvic cramping R10.2 and Left breast lump N63.20 [place] [address] [address] Aug, [place] [address] [address] Aug, Well woman exam Z01.419 ; Left breast nenita mp N63.20 ; Irregular menses N92.6 ; Encounter for immunization Z23 ; Pelvic cramping R10.2 and Screening for cervical cancer Z12.4 [place] [address] [address] Aug, [place] [address] [address] Aug, [place] [id number] [place] [address] Aug, [facility] [id number] [place] [address] Jul, [facility] [id number] [place] [address] Jun, [facility] [address] [address] Jun, [facility] [address] [address] Jun, [facility] [address] [address] Jun, BMI 50.0-59.9, adult Z68.43 [facility] [id number] [place] [address] Jun, [facility] [address] [facility] [id number] [address] [place] [address] May, Acute non-recurrent sinusiti s, unspecified location J01.90 ; Diarrhea, unspecified R19.7 ; Vomiting, unspecified R11.10 and Morbid obesity E66.01 [facility] [id number] [place] [address] Apr, [facility] [address] [address] Apr, Anemia due to other cause, not classifie d D64.89 and D-dimer, elevated R79.89 [facility] [id number] [place] [address] Apr, [facility] [address] [address] Apr, [facility] [address] [address] Mar, Anemia due to other cause, not classifie d D64.89 and D-dimer, elevated R79.89 [facility] [address] [address] Mar, Leg edema, right R60.0 ; High risk medic ation use Z79.899 and Morbid obesity E66.01 [place] [address] [address] Mar, BMI 50.0-59.9, adult Z68.43 [place] [address] [address] Mar, [place] [address] [address] January, Uncontrolled type 2 diabetes mellitus wi th hyperglycemia E11.65 ; RLS (restless legs syndrome) G25.81 and Morbid obesity E66.01 [place] [address] [address] Oct, Lipoma of right lower extremity D17.23 [place] [address] [address] Oct, Lipoma of right lower extremity D17.23 [place] [address] [address] Sep, [place] [address] [address] Sep, [place] [address] [address] Sep, [place] [address] [address] Sep, [place] [address] [address] Sep, [place] [address] [address] Aug, Uncontrolled type 2 diabetes mellitus wi th hyperglycemia E11.65 ; Morbid obesity due to excess calories E66.01 ; Lipoma of torso D17.1 and BMI 50.0-59.9, adult Z68.43 [place] [address] [place] [address] Jun, Encounter for immunization Z23 [facility] [id number] [place] [address] Jul, [facility] [id number] [place] [address] Jun, Encounter for immunization Z23 [facility] [id number] [place] [address] May, [facility] [id number] [place] [address] Jun, Encounter for immunization Z23 [facility] [id number] [place] [address] May, [facility] [id number] [place] [address] May, [facility] [id number] [place] [address] Apr, [facility] [id number] [place] [address] Feb, [facility] [id number] [place] [address] Feb, [facility] [id number] [place] [address] Feb, [facility] [id number] [place] [address] January, [facility] [id number] [place] [address] January, [facility] [id number] [place] [address] Dec, [facility] [id number] [place] [address] Dec, [facility] [id number] [place] [address] Nov, [facility] [id number] [place] [address] Nov, [facility] [place] [facility] [address] [facility] [id number] [place] [address] Nov, [facility] [place] [facility] [address] [facility] [id number] [place] [address] Nov, [facility] [place] [facility] [address] [id number] [place] [address] Nov, [facility] [place] [facility] [address] [facility] [id number] [place] [address] Nov, [facility] [place] [facility] [address] [facility] [id number] [place] [address] Nov, [facility] [place] [facility] [address] [id number] [place] [address] Oct, [facility] [place] [facility] [address] [id number] [place] [address] Oct, [facility] [place] [facility] [address] [id number] [place] [address] Oct, [facility] [place] [facility] [address] [id number] [place] [address] Oct, [facility] [place] [facility] [address] [id number] [place] [address] Oct, [facility] [place] [facility] [address] [id number] [place] [address] Sep, [facility] [place] [facility] [address] [id number] [place] [address] Sep, [facility] [place] [facility] [address] [facility] [id number] [place] [address] Sep, [facility] [place] [facility] [address] [id number] [place] [address] Sep, [facility] [place] [facility] [address] [id number] [place] [address] Sep, [facility] [place] [facility] [address] [id number] [place] [address] Sep, [facility] [place] [facility] [address] [id number] [place] [address] Sep, [facility] [place] [facility] [address] [id number] [place] [address] Sep, [facility] [place] [facility] [address] [id number] [place] [address] Sep, [facility] [place] [facility] [address] [id number] [place] [address] Sep, [facility] [place] [facility] [address] [id number] [place] [address] Aug, [facility] [place] [facility] [address] [id number] [place] [address] Aug, [facility] [place] [facility] [address] [id number] [place] [address] Aug, [facility] [place] [facility] [address] [id number] [place] [address] Aug, [facility] [place] [facility] [address] [id number] [place] [address] Aug, [facility] [place] [facility] [address] [id number] [place] [address] Aug, [facility] [place] [facility] [address] [id number] [place] [address] Aug, [facility] [place] [facility] [address] [id number] [place] [address] Aug, [facility] [place] [facility] [address] [id number] [place] [address] Aug, [facility] [place] [facility] [address] [id number] [place] [address] Aug, [facility] [place] [facility] [address] [id number] [place] [address] Aug, [facility] [place] [facility] [address] [id number] [place] [address] Aug, [facility] [place] [facility] [address] [id number] [place] [address] 18 Aug, 2014 [facility] [place] [facility] [address] [id number] [place] [address] 18 Aug, 2014 [facility] [place] [facility] [address] [id number] [place] [address] 17 Aug, 2014 [facility] [place] [facility] [address] [id number] [place] [address] 17 Aug, 2014 [facility] [place] [facility] [address] [id number] [place] [address] 16 Aug, 2014 [facility] [place] [facility] [address] [id number] [place] [address] 16 Aug, 2014 [facility] [place] [facility] [address] [id number] [place] [address] Aug, [facility] [place] [facility] [address] [id number] [place] [address] Aug, [facility] [place] [facility] [address] [id number] [place] [address] 08 Aug, 2014 [facility] [place] [facility] [address] [id number] [place] [address] 08 Aug, 2014 [facility] [place] [facility] [address] [id number] [place] [address] 05 Aug, 2014 [facility] [place] [facility] [address] [id number] [place] [address] 05 Aug, 2014 [facility] [place] [facility] [address] [id number] [place] [address] Jul, [facility] [place] [facility] [address] [id number] [place] [address] Jul, [facility] [place] [facility] [address] [id number] [place] [address] Jun, [facility] [place] [facility] [address] [id number] [place] [address] Jun, [facility] [place] [facility] [address] [id number] [place] [address] Jun, [facility] [place] [facility] [address] [id number] [place] [address] 17 Jun, 2014 [facility] [place] [facility] [address] [facility] [id number] [place] [address] 15 Jun, 2014 [facility] [place] [facility] [address] [id number] [place] [address] 15 Jun, 2014 [facility] [place] [facility] [address] [id number] [place] [address] 14 Jun, 2014 [facility] [place] [facility] [address] [id number] [place] [address] 14 Jun, 2014 [facility] [place] [facility] [address] [id number] [place] [address] 13 Jun, 2014 [facility] [place] [facility] [address] [id number] [place] [address] 13 Jun, 2014 [facility] [place] [facility] [address] [id number] [place] [address] 13 Jun, 2014 [facility] [place] [facility] [address] [id number] [place] [address] Jun, [facility] [place] [facility] [address] [id number] [place] [address] 06 Jun, 2014 [facility] [place] [facility] [address] [id number] [place] [address] Jun, [facility] [place] [facility] [address] [id number] [place] [address] 26 May, 2013 [facility] [place] [facility] [address] [id number] [place] [address] 26 May, 2013 [facility] [place] [facility] [address] [id number] [place] [address] 22 May, 2013 [facility] [place] [facility] [address] [id number] [place] [address] 22 May, 2013 [facility] [place] [facility] [address] [id number] [place] [address] May, 2013 [facility] [place] [facility] [address] [id number] [place] [address] 04 May, 2014 [facility] [place] [facility] [address] [id number] [place] [address] May, [facility] [place] [facility] [address] [facility] [id number] [place] [address] May, [facility] [place] [facility] [address] [id number] [place] [address] Apr, [facility] [place] [facility] [address] [id number] [place] [address] Apr, [facility] [place] [facility] [address] [facility] [id number] [place] [address] Apr, [facility] [place] [facility] [address] [id number] [place] [address] Apr, [facility] [place] [facility] [address] [id number] [place] [address] Apr, [facility] [place] [facility] [address] [id number] [place] [address] Apr, [facility] [place] [facility] [address] [id number] [place] [address] Apr, [facility] [place] [facility] [address] [id number] [place] [address] Apr, [facility] [place] [facility] [address] [id number] [place] [address] Apr, [facility] [place] [facility] [address] [id number] [place] [address] Mar, [facility] [place] [facility] [address] [id number] [place] [address] Mar, [facility] [place] [facility] [address] [facility] [id number] [place] [address] Mar, [facility] [place] [facility] [address] [id number] [place] [address] Feb, [facility] [place] [facility] [address] [id number] [place] [address] Feb, [facility] [place] [facility] [address] [id number] [place] [address] Feb, [facility] [place] [facility] [address] [facility] [id number] [place] [address] Feb, [facility] [place] [facility] [address] [facility] [id number] [place] [address] Feb, [facility] [place] [facility] [address] [facility] [id number] [place] [address] Feb, [facility] [place] [facility] [address] [facility] [id number] [place] [address] Feb, [facility] [place] [facility] [address] [facility] [id number] [place] [address] Feb, [facility] [place] [facility] [address] [facility] [id number] [place] [address] Feb, [facility] [place] [facility] [address] [id number] [place] [address] Feb, [facility] [place] [facility] [address] [id number] [place] [address] Feb, [facility] [place] [facility] [address] [facility] [id number] [place] [address] Feb, [facility] [place] [facility] [address] [id number] [place] [address] Feb, [facility] [place] [facility] [address] [id number] [place] [address] Feb, [facility] [place] [facility] [address] [id number] [place] [address] Feb, [facility] [place] [facility] [address] [facility] [id number] [place] [address] Feb, [facility] [place] [facility] [address] [facility] [id number] [place] [address] January, [facility] [place] [facility] [address] [facility] [id number] [place] [address] January, [facility] [place] [facility] [address] [id number] [place] [address] January, [facility] [place] [facility] [address] [facility] [id number] [place] [address] January, [facility] [place] [facility] [address] [id number] [place] [address] January, [facility] [place] [facility] [address] [facility] [id number] [place] [address] January, [facility] [place] [facility] [address] [id number] [place] [address] January, [facility] [place] [facility] [address] [id number] [place] [address] January, [facility] [place] [facility] [address] [id number] [place] [address] January, [facility] [place] [facility] [address] [id number] [place] [address] January, [facility] [place] [facility] [address] [id number] [place] [address] January, [facility] [place] [facility] [address] [id number] [place] [address] January, [facility] [place] [facility] [address] [id number] [place] [address] January, [facility] [place] [facility] [address] [id number] [place] [address] January, [facility] [place] [facility] [address] [id number] [place] [address] January, [facility] [place] [facility] [address] [id number] [place] [address] January, [facility] [place] [facility] [address] [id number] [place] [address] January, [facility] [place] [facility] [address] [id number] [place] [address] January, [facility] [place] [facility] [address] [id number] [place] [address] January, [facility] [place] [facility] [address] [id number] [place] [address] January, [facility] [place] [facility] [address] [id number] [place] [address] January, [facility] [place] [facility] [address] [id number] [place] [address] January, [facility] [place] [facility] [address] [id number] [place] [address] January, [facility] [place] [facility] [address] [id number] [place] [address] January, [facility] [place] [facility] [address] [id number] [place] [address] January, [facility] [place] [facility] [address] [id number] [place] [address] January, [facility] [place] [facility] [address] [id number] [place] [address] Dec, [facility] [place] [facility] [address] [id number] [place] [address] Dec, [facility] [place] [facility] [address] [id number] [place] [address] Dec, [facility] [place] [facility] [address] [id number] [place] [address] Dec, [facility] [place] [facility] [address] [id number] [place] [address] Dec, [facility] [place] [facility] [address] [id number] [place] [address] Dec, [facility] [place] [facility] [address] [id number] [place] [address] Dec, [facility] [place] [facility] [address] [id number] [place] [address] Dec, [facility] [place] [facility] [address] [id number] [place] [address] Dec, [facility] [place] [facility] [address] [id number] [place] [address] Dec, [facility] [place] [facility] [address] [id number] [place] [address] Dec, [facility] [place] [facility] [address] [facility] [id number] [place] [address] Dec, [facility] [place] [facility] [address] [facility] [id number] [place] [address] Dec, [facility] [place] [facility] [address] [facility] [id number] [place] [address] 14 Dec, 2013 [facility] [place] [facility] [address] [facility] [id number] [facility] [address] Dec, [facility] [place] [facility] [address] [facility] [id number] [place] [address] Dec, [facility] [place] [facility] [address] [id number] [place] [address] Dec, [facility] [place] [facility] [address] [id number] [place] [address] Dec, [facility] [place] [facility] [address] [id number] [place] [address] Dec, [facility] [place] [facility] [address] [facility] [id number] [place] [address] Dec, [facility] [place] [facility] [address] [id number] [place] [address] Dec, [facility] [place] [facility] [address] [id number] [place] [address] Dec, [facility] [place] [facility] [address] [id number] [place] [address] Nov, [facility] [place] [facility] [address] [facility] [id number] [place] [address] Nov, [facility] [place] [facility] [address] [facility] [id number] [place] [address] Nov, [facility] [place] [facility] [address] [facility] [id number] [place] [address] Nov, [facility] [place] [facility] [address] [id number] [place] [address] 24 Nov, 2013 [facility] [place] [facility] [address] [id number] [place] [address] 24 Nov, 2013 [facility] [place] [facility] [address] [facility] [id number] [place] [address] Nov, [facility] [place] [facility] [address] [id number] [place] [address] Nov, [facility] [place] [facility] [address] [id number] [place] [address] 18 Nov, 2013 [facility] [place] [facility] [address] [id number] [place] [address] 18 Nov, 2013 [facility] [place] [facility] [address] [id number] [place] [address] 18 Nov, 2013 [facility] [place] [facility] [address] [id number] [place] [address] 18 Nov, 2013 [facility] [place] [facility] [address] [id number] [place] [address] 14 Nov, 2013 [facility] [place] [facility] [address] [id number] [place] [address] 14 Nov, 2013 [facility] [place] [facility] [address] [id number] [place] [address] Nov, [facility] [place] [facility] [address] [id number] [place] [address] Nov, [facility] [place] [facility] [address] [id number] [place] [address] Oct, [facility] [place] [facility] [address] [id number] [place] [address] Oct, [facility] [place] [facility] [address] [id number] [place] [address] Oct, [facility] [place] [facility] [address] [id number] [place] [address] Oct, [facility] [place] [facility] [address] [id number] [place] [address] Oct, [facility] [place] [facility] [address] [id number] [place] [address] Oct, [facility] [place] [facility] [address] [facility] [id number] [facility] [address] Oct, [facility] [place] [facility] [address] [id number] [place] [address] Oct, [facility] [place] [facility] [address] [id number] [place] [address] Oct, [facility] [place] [facility] [address] [id number] [place] [address] Oct, [facility] [place] [facility] [address] [facility] [id number] [facility] [address] Oct, [facility] [place] [facility] [address] [id number] [place] [address] Oct, [facility] [place] [facility] [address] [id number] [place] [address] Oct, [facility] [place] [facility] [address] [id number] [place] [address] Oct, [facility] [place] [facility] [address] [id number] [place] [address] Oct, [facility] [place] [facility] [address] [id number] [place] [address] Sep, [facility] [place] [facility] [address] [id number] [place] [address] Sep, [facility] [place] [facility] [address] [id number] [place] [address] Sep, [facility] [place] [facility] [address] [id number] [place] [address] Sep, [facility] [place] [facility] [address] [id number] [place] [address] Sep, [facility] [place] [facility] [address] [id number] [place] [address] Sep, [facility] [place] [facility] [address] [id number] [place] [address] Sep, [facility] [place] [facility] [address] [id number] [place] [address] 10 Sep, 2013 [facility] [place] [facility] [address] [id number] [place] [address] Sep, [facility] [place] [facility] [address] [id number] [place] [address] Sep, [facility] [place] [facility] [address] [id number] [place] [address] Sep, [facility] [place] [facility] [address] [id number] [place] [address] Sep, [facility] [place] [facility] [address] [id number] [place] [address] Sep, [facility] [place] [facility] [address] [id number] [place] [address] Aug, [facility] [place] [facility] [address] [id number] [place] [address] 30 Aug, 2013 [facility] [place] [facility] [address] [id number] [place] [address] Aug, [facility] [place] [facility] [address] [id number] [place] [address] 24 Aug, 2013 [facility] [place] [facility] [address] [id number] [place] [address] Aug, [facility] [place] [facility] [address] [id number] [place] [address] 17 Aug, 2013 [facility] [place] [facility] [address] [id number] [place] [address] 16 Aug, 2013 [facility] [place] [facility] [address] [id number] [place] [address] 16 Aug, 2013 [facility] [place] [facility] [address] [id number] [place] [address] 12 Aug, 2013 [facility] [id number] [place] [address] 12 Aug, 2013 [facility] [id number] [place] [address] 10 Aug, 2013 [facility] [id number] [place] [address] 10 Aug, 2012 [facility] [id number] [place] [address] 02 Aug, 2013 [facility] [id number] [place] [address] 02 Aug, 2013 [facility] [id number] [place] [address] Jul, [facility] [id number] [place] [address] 19 Jul, 2013 [facility] [id number] [place] [address] 18 Jul, 2013 [facility] [id number] [place] [address] 18 Jul, 2013 [facility] [id number] [place] [address] 14 Jul, 2013 [facility] [id number] [place] [address] 14 Jul, 2013 [facility] [id number] [place] [address] 14 Jul, 2013 [facility] [id number] [place] [address] 14 Jul, 2013 [facility] [id number] [place] [address] 07 Jul, 2013 [facility] [id number] [place] [address] 07 Jul, 2013 [facility] [id number] [place] [address] 06 Jul, 2013 [facility] [id number] [place] [address] 06 Jul, 2013 [facility] [id number] [place] [address] 05 Jul, 2012 [facility] [id number] [place] [address] 05 Jul, 2013 [facility] [address] [facility] [id number] [place] [address] 23 Jun, 2013 [facility] [address] [facility] [id number] [place] [address] 23 Jun, 2013 [facility] [id number] [place] [address] 15 Jun, 2013 [facility] [address] [facility] [id number] [place] [address] 15 Jun, 2013 [facility] [address] [facility] [id number] [place] [address] 14 Jun, 2013 [facility] [id number] [place] [address] 24 May, 2012 [facility] [id number] [place] [address] 20 May, 2012 [facility] [id number] [place] [address] 20 May, 2012 [facility] [address] [facility] [id number] [place] [address] 20 May, 2012 [facility] [id number] [place] [address] 19 May, 2012 [facility] [id number] [place] [address] 13 May, 2012 [facility] [id number] [place] [address] 12 Sep, 2012 [facility] [address] [facility] [id number] [place] [address] 12 Sep, 2012 [facility] [id number] [place] [address] 11 May, 2012 [facility] [address] [facility] [id number] [place] [address] 11 May, 2012 [facility] [id number] [place] [address] 11 May, 2012 [facility] [address] [id number] [facility] [address] 09 May, 2012 [facility] [address] [id number] [facility] [address] 05 May, 2012 [facility] [address] [facility] [id number] [facility] [address] May, [facility] [id number] [place] [address] May, [facility] [address] [facility] [id number] [facility] [address] Apr, [facility] [address] [id number] [place] [address] Apr, [facility] [id number] [place] [address] Apr, [facility] [id number] [place] [address] Apr, [facility] [id number] [place] [address] Apr, [facility] [address] [id number] [place] [address] Apr, [facility] [id number] [place] [address] Apr, [facility] [id number] [place] [address] Apr, [facility] [id number] [place] [address] Apr, [facility] [address] [id number] [place] [address] Mar, [facility] [address] [id number] [place] [address] Mar, [facility] [id number] [place] [address] Mar, [facility] [id number] [place] [address] Mar, [facility] [address] [facility] [id number] [place] [address] Mar, 2012 [facility] [id number] [place] [address] Mar, 2012 [facility] [id number] [place] [address] Mar, 2012 [facility] [id number] [place] [address] Mar, 2012 [facility] [address] [facility] [id number] [place] [address] Mar, 2012 [facility] [id number] [place] [address] Mar, [facility] [id number] [place] [address] Mar, [facility] [id number] [place] [address] Feb, [facility] [id number] [place] [address] Feb, [facility] [id number] [place] [address] Feb, [facility] [id number] [place] [address] Feb, [facility] [id number] [place] [address] Feb, [facility] [id number] [place] [address] Feb, [facility] [id number] [place] [address] Feb, [facility] [id number] [place] [address] Feb, [facility] [id number] [place] [address] Feb, [facility] [id number] [place] [address] January, [facility] [address] [id number] [facility] [address] January, [facility] [address] [facility] [id number] [facility] [address] January, [facility] [id number] [place] [address] January, [facility] [id number] [place] [address] January, [facility] [address] [facility] [id number] [facility] [address] January, [facility] [id number] [place] [address] January, [facility] [id number] [place] [address] January, [facility] [id number] [place] [address] January, [facility] [address] [facility] [id number] [facility] [address] January, [facility] [id number] [place] [address] January, [facility] [id number] [place] [address] January, [facility] [id number] [place] [address] January, [facility] [address] [facility] [id number] [facility] [address] January, [facility] [address] [id number] [place] [address] January, [facility] [id number] [place] [address] January, [facility] [id number] [place] [address] January, [facility] [address] [id number] [place] [address] January, [facility] [address] [id number] [place] [address] January, [facility] [id number] [place] [address] January, [facility] [id number] [place] [address] January, [facility] [id number] [place] [address] January, [facility] [id number] [place] [address] January, [facility] [id number] [place] [address] Dec, [facility] [id number] [place] [address] Dec, [facility] [id number] [place] [address] Dec, [facility] [id number] [place] [address] Dec, [facility] [id number] [place] [address] Dec, [facility] [id number] [place] [address] Nov, [facility] [id number] [place] [address] Oct, [facility] [id number] [place] [address] Oct, [facility] [id number] [place] [address] Oct, [facility] [id number] [place] [address] Oct, [facility] [id number] [place] [address] Oct, [facility] [id number] [place] [address] Sep, [facility] [id number] [place] [address] Sep, [facility] [id number] [place] [address] Sep, [facility] [id number] [place] [address] Aug, [facility] [id number] [place] [address] Aug, [facility] [id number] [place] [address] Aug, [facility] [id number] [place] [address] Aug, [facility] [id number] [place] [address] Jul, [facility] [id number] [place] [address] Jul, [facility] [id number] [place] [address] Jul, [facility] [id number] [place] [address] Jul, [facility] [id number] [place] [address] Jul, [facility] [id number] [place] [address] Jul, [facility] [id number] [place] [address] Jun, [facility] [id number] [place] [address] Jun, [facility] [id number] [place] [address] Jun, [facility] [id number] [place] [address] Jun, [facility] [address] [id number] [place] [address] Jun, [facility] [id number] [place] [address] Jun, [facility] [id number] [place] [address] Jun, [facility] [id number] [place] [address] Jun, [facility] [id number] [place] [address] Jun, [facility] [id number] [place] [address] Jun, [facility] [id number] [place] [address] May, [facility] [id number] [place] [address] May, [facility] [id number] [place] [address] May, [facility] [id number] [place] [address] Apr, [facility] [id number] [place] [address] Apr, [facility] [id number] [place] [address] Apr, [facility] [id number] [place] [address] Apr, [facility] [id number] [place] [address] Apr, [facility] [id number] [place] [address] Apr, [facility] [id number] [place] [address] Apr, [facility] [address] [id number] [place] [address] Apr, [facility] [id number] [place] [address] Apr, [facility] [id number] [place] [address] Mar, [facility] [id number] [place] [address] Mar, [facility] [id number] [place] [address] Mar, [facility] [id number] [place] [address] Mar, [facility] [id number] [place] [address] Feb, [facility] [id number] [place] [address] Feb, [facility] [id number] [place] [address] Feb, [facility] [id number] [place] [address] January, [facility] [id number] [place] [address] January, [facility] [id number] [place] [address] January, [facility] [id number] [place] [address] January, [facility] [id number] [place] [address] January, [facility] [id number] [place] [address] Dec, [facility] [id number] [place] [address] Dec, [facility] [id number] [place] [address] Dec, [facility] [id number] [place] [address] Oct, [facility] [id number] [place] [address] Oct, [facility] [id number] [place] [address] Oct, [facility] [id number] [place] [address] Sep, [facility] [id number] [place] [address] Sep, [facility] [id number] [place] [address] Aug, [facility] [id number] [place] [address] Jul, [facility] [id number] [place] [address] Jul, [facility] [id number] [place] [address] Mar, [facility] [id number] [place] [address] Aug, [facility] [id number] [place] [address] Jul, [facility] [id number] [place] [address] Jul, [facility] [id number] [place] [address] Jul, [facility] [id number] [place] [address] Jul, [facility] [id number] [place] [address] 14 Jun, 2010 [facility] [id number] [place] [address] Jun, [facility] [id number] [place] [address] Apr, [facility] [id number] [place] [address] Aug, [facility] [id number] [place] [address] Jul, [facility] [id number] [place] [address] Jul, [facility] [id number] [place] [address] Jul, [facility] [id number] [place] [address] Jun, [facility] [id number] [place] [address] May, [facility] [id number] [place] [address] 14 Dec, 2008 [facility] [id number] [place] [address] Nov, [facility] [id number] [place] [address] Oct, [facility] [id number] [place] [address] Aug, [facility] [id number] [place] [address] Aug, [facility] [id number] [place] [address] Jun, IMMUNIZATIONS No Known Immunizations SOCIAL HISTORY [...] [facility] [place]- Right wrist injury 03/29/2018
--- OUTSIDE RECORDS SUMMARY | 2020-04-09 00:23 | XMS REPORT ---
Author Author Kateryna Turner Doctor Organization [facility] Address Unknown Phone Unavailable Care Team Providers Care Copy Worker Name Role Phone Migration, Doctor Unavailable Unavailable PROBLEMS Type Condition ICD9-CM Code EDN52-RT Code Onset Dates Condition S tatus SNOMED Code Problem Irregular menses N92.6 Active 801 74846 Problem Migraine with aura and without status migrainosu s, not intractable G43.109 Active 5748251 Problem Uncontrolled type 2 diabetes mellitus with hyperglycemia E11.65 Active 555843153 Problem Morbid obesity due to excess calories E66.01 Active 221222967 Problem RLS (restless legs syndrome) G25.81 A ctive 34628826 Problem Morbid obesity E66.01 Active 52592 6002 ALLERGIES No Information ENCOUNTERS Encounter Location Date Diagnosis [facility] [address] [address] 03 Nov, 2019 [facility] [address] [address] 02 Nov, 2019 RLS (restless legs syndrome) G25.81 [facility] [address] [address] 15 Oct, 2019 [facility] [address] [facility] [id number] [address] [place] [address] 09 Oct, 2019 Influenza J11.1 [facility] [address] [address] 16 Sep, 2019 [facility] [address] [address] Sep, [facility] [address] [address] Sep, [facility] [address] [address] 13 Sep, 2019 [facility] [address] [address] 10 Sep, 2019 Pneumonia of left lower lobe due to infe ctious organism J18.9 and Migraine with aura and without status migrainosus, not intractable G43.109 [facility] [address] [address] 10 Sep, 2019 [facility] [address] [address] 10 Sep, 2019 [facility] [address] [address] 08 Sep, 2019 [facility] [address] [address] 08 Sep, 2019 [place] [address] [address] 08 Sep, 2019 Pneumonia of left lower lobe due to infe ctious organism J18.9 and Migraine with aura and without status migrainosus, not intractable G43.109 [place] [address] [address] Aug, Irregular menses N92.6 ; Well woman exam Z01.419 ; Pelvic cramping R10.2 and Left breast lump N63.20 [place] [address] [address] Aug, [place] [address] [address] Aug, Well woman exam Z01.419 ; Left breast nenita mp N63.20 ; Irregular menses N92.6 ; Encounter for immunization Z23 ; Pelvic cramping R10.2 and Screening for cervical cancer Z12.4 [place] [address] [address] Aug, [place] [address] [address] Aug, [place] [address] [address] Aug, [place] [address] [address] Jul, [facility] [address] [address] Jun, [facility] [address] [address] Jun, [facility] [address] [address] Jun, [facility] [address] [address] Jun, BMI 50.0-59.9, adult Z68.43 [place] [address] [address] Jun, [facility] [address] [facility] [id number] [address] [place] [address] May, Acute non-recurrent sinusiti s, unspecified location J01.90 ; Diarrhea, unspecified R19.7 ; Vomiting, unspecified R11.10 and Morbid obesity E66.01 [facility] [address] [address] Apr, [place] [address] [address] Apr, Anemia due to other cause, not classifie d D64.89 and D-dimer, elevated R79.89 [place] [address] [address] Apr, [facility] [address] [address] Apr, [facility] [address] [address] Mar, Anemia due to other cause, not classifie d D64.89 and D-dimer, elevated R79.89 [place] [address] [address] Mar, Leg edema, right R60.0 ; High risk medic ation use Z79.899 and Morbid obesity E66.01 [place] [address] [address] Mar, BMI 50.0-59.9, adult Z68.43 [place] [address] [address] Mar, [place] [address] [address] January, Uncontrolled type 2 diabetes mellitus wi th hyperglycemia E11.65 ; RLS (restless legs syndrome) G25.81 and Morbid obesity E66.01 [place] [address] [address] 15 Oct, 2018 Lipoma of right lower extremity D17.23 [place] [address] [address] Oct, Lipoma of right lower extremity D17.23 [place] [address] [address] Sep, [place] [address] [address] Sep, [place] [address] [address] Sep, [place] [address] [address] Sep, [place] [address] [address] Sep, [place] [address] [address] Aug, Uncontrolled type 2 diabetes mellitus wi th hyperglycemia E11.65 ; Morbid obesity due to excess calories E66.01 ; Lipoma of torso D17.1 and BMI 50.0-59.9, adult Z68.43 [place] [address] [address] Jun, Encounter for immunization Z23 [place] [id number] [id number] [place] [address] Jul, [facility] [address] [place] [id number] [place] [address] Jun, Encounter for immunization Z23 [facility] [address] [id number] [place] [address] 30 May, 2016 [facility] [address] [id number] [place] [address] Jun, Encounter for immunization Z23 [facility] [address] [id number] [place] [address] 29 May, 2015 [facility] [id number] [place] [address] May, [facility] [address] [id number] [place] [address] Apr, [facility] [id number] [place] [address] Feb, [facility] [id number] [place] [address] Feb, [facility] [id number] [place] [address] Feb, [facility] [address] [id number] [place] [address] January, [facility] [address] [id number] [place] [address] January, [facility] [address] [id number] [place] [address] Dec, [facility] [id number] [place] [address] Dec, [facility] [id number] [place] [address] Nov, [facility] [id number] [place] [address] Nov, [facility] [address] [id number] [place] [address] Nov, [facility] [address] [facility] [id number] [place] [address] Nov, [facility] [address] [id number] [place] [address] Nov, [facility] [address] [id number] [place] [address] Nov, [facility] [address] [id number] [place] [address] Nov, [facility] [address] [facility] [id number] [place] [address] Oct, [facility] [address] [id number] [place] [address] Oct, [facility] [address] [id number] [place] [address] Oct, [facility] [address] [id number] [place] [address] Oct, [facility] [address] [id number] [place] [address] Oct, [facility] [address] [id number] [place] [address] Sep, [facility] [address] [id number] [place] [address] Sep, [facility] [address] [id number] [place] [address] Sep, [facility] [address] [facility] [id number] [place] [address] Sep, [facility] [address] [id number] [place] [address] Sep, [facility] [address] [id number] [place] [address] Sep, [facility] [address] [id number] [place] [address] Sep, [facility] [address] [id number] [place] [address] Sep, [facility] [address] [id number] [place] [address] Sep, [facility] [address] [id number] [place] [address] Sep, [facility] [address] [id number] [place] [address] Aug, [facility] [address] [id number] [place] [address] Aug, [facility] [address] [id number] [place] [address] Aug, [facility] [address] [id number] [place] [address] Aug, [facility] [address] [id number] [place] [address] Aug, [facility] [address] [id number] [place] [address] Aug, [facility] [address] [id number] [place] [address] Aug, [facility] [address] [id number] [place] [address] Aug, [facility] [address] [id number] [place] [address] Aug, [facility] [address] [id number] [place] [address] Aug, [facility] [address] [id number] [place] [address] Aug, [facility] [address] [id number] [place] [address] Aug, [facility] [address] [id number] [place] [address] Aug, [facility] [address] [id number] [place] [address] 18 Aug, 2014 [facility] [address] [id number] [place] [address] 17 Aug, 2014 [facility] [address] [id number] [place] [address] Aug, [facility] [address] [id number] [place] [address] 16 Aug, 2014 [facility] [address] [id number] [place] [address] 16 Aug, 2014 [facility] [address] [id number] [place] [address] Aug, [facility] [address] [id number] [place] [address] Aug, [facility] [address] [id number] [place] [address] 08 Aug, 2014 [facility] [address] [id number] [place] [address] Aug, [facility] [address] [id number] [place] [address] 05 Aug, 2014 [facility] [address] [id number] [place] [address] Aug, [facility] [address] [id number] [place] [address] Jul, [facility] [address] [id number] [place] [address] Jul, [facility] [address] [id number] [place] [address] Jun, [facility] [address] [id number] [place] [address] Jun, [facility] [address] [id number] [place] [address] Jun, [facility] [address] [id number] [place] [address] Jun, [facility] [address] [id number] [place] [address] 15 Jun, 2013 [facility] [address] [facility] [id number] [place] [address] 15 Jun, 2013 [facility] [address] [facility] [id number] [place] [address] 14 Jun, 2013 [facility] [address] [id number] [place] [address] 14 Jun, 2014 [facility] [address] [facility] [id number] [place] [address] 13 Jun, 2013 [facility] [address] [facility] [id number] [place] [address] 13 Jun, 2013 [facility] [address] [id number] [place] [address] 13 Jun, 2013 [facility] [address] [id number] [place] [address] 13 Jun, 2013 [facility] [address] [id number] [place] [address] 06 Jun, 2013 [facility] [address] [facility] [id number] [place] [address] 06 Jun, 2014 [facility] [address] [id number] [place] [address] 26 May, 2013 [facility] [address] [id number] [place] [address] 26 May, 2013 [facility] [address] [id number] [place] [address] 22 May, 2013 [facility] [address] [facility] [id number] [place] [address] 22 May, 2013 [facility] [address] [id number] [place] [address] 04 Sep, 2013 [facility] [address] [id number] [place] [address] 04 Sep, 2013 [facility] [address] [id number] [place] [address] May, [facility] [address] [facility] [id number] [place] [address] May, [facility] [address] [facility] [id number] [place] [address] Apr, [facility] [address] [facility] [id number] [place] [address] Apr, [facility] [address] [id number] [facility] [place] [address] Apr, [facility] [address] [facility] [id number] [facility] [place] [address] Apr, [facility] [address] [id number] [place] [address] Apr, [facility] [address] [id number] [place] [address] Apr, [facility] [address] [id number] [place] [address] Apr, [facility] [address] [id number] [place] [address] Apr, [facility] [address] [id number] [place] [address] Apr, [facility] [address] [id number] [place] [address] Mar, [facility] [address] [id number] [place] [address] Mar, [facility] [address] [id number] [place] [address] Mar, [facility] [address] [facility] [id number] [place] [address] Feb, [facility] [address] [id number] [place] [address] Feb, [facility] [address] [id number] [place] [address] Feb, [facility] [address] [id number] [place] [address] Feb, [facility] [address] [facility] [id number] [facility] [place] [address] Feb, [facility] [address] [facility] [id number] [facility] [place] [address] Feb, [facility] [address] [id number] [facility] [place] [address] Feb, [facility] [address] [id number] [facility] [place] [address] Feb, [facility] [address] [facility] [id number] [facility] [place] [address] Feb, [facility] [address] [id number] [place] [address] Feb, [facility] [address] [id number] [place] [address] Feb, [facility] [address] [id number] [place] [address] Feb, [facility] [address] [id number] [place] [address] Feb, [facility] [address] [id number] [place] [address] Feb, [facility] [address] [id number] [place] [address] Feb, [facility] [address] [id number] [place] [address] Feb, [facility] [address] [id number] [place] [address] January, [facility] [address] [id number] [place] [address] January, [facility] [address] [id number] [place] [address] January, [facility] [address] [id number] [place] [address] January, [facility] [address] [id number] [place] [address] January, [facility] [address] [id number] [place] [address] January, [facility] [address] [facility] [id number] [place] [address] January, [facility] [address] [facility] [id number] [place] [address] January, [facility] [address] [facility] [id number] [place] [address] January, [facility] [address] [id number] [place] [address] January, [facility] [address] [id number] [place] [address] January, [facility] [address] [id number] [place] [address] January, [facility] [address] [id number] [place] [address] January, [facility] [address] [id number] [place] [address] January, [facility] [address] [id number] [place] [address] January, [facility] [address] [id number] [place] [address] January, [facility] [address] [id number] [place] [address] January, [facility] [address] [id number] [place] [address] January, [facility] [address] [id number] [place] [address] January, [facility] [address] [facility] [id number] [place] [address] January, [facility] [address] [id number] [place] [address] January, [facility] [address] [id number] [place] [address] January, [facility] [address] [id number] [place] [address] January, [facility] [address] [id number] [place] [address] January, [facility] [address] [id number] [place] [address] January, [facility] [address] [id number] [place] [address] January, [facility] [place] [facility] [address] [id number] [place] [address] Dec, [facility] [place] [facility] [address] [id number] [place] [address] Dec, [facility] [place] [facility] [address] [id number] [place] [address] Dec, [facility] [place] [facility] [address] [id number] [place] [address] Dec, [facility] [place] [facility] [address] [id number] [place] [address] Dec, [facility] [place] [facility] [address] [id number] [place] [address] Dec, [facility] [place] [facility] [address] [id number] [place] [address] Dec, [facility] [place] [facility] [address] [id number] [place] [address] Dec, [facility] [place] [facility] [address] [id number] [place] [address] Dec, [facility] [place] [facility] [address] [id number] [place] [address] Dec, [facility] [place] [facility] [address] [id number] [place] [address] Dec, [facility] [place] [facility] [address] [id number] [place] [address] Dec, [facility] [place] [facility] [address] [facility] [id number] [facility] [place] [address] Dec, [facility] [place] [facility] [address] [facility] [id number] [facility] [place] [address] Dec, [facility] [place] [facility] [address] [id number] [facility] [place] [address] Dec, [facility] [place] [facility] [address] [id number] [place] [address] Dec, [facility] [place] [facility] [address] [facility] [id number] [facility] [place] [address] Dec, [facility] [place] [facility] [address] [id number] [place] [address] Dec, [facility] [place] [facility] [address] [id number] [facility] [place] [address] Dec, [facility] [place] [facility] [address] [id number] [facility] [place] [address] Dec, [facility] [place] [facility] [address] [id number] [facility] [place] [address] Dec, [facility] [place] [facility] [address] [id number] [place] [address] Dec, [facility] [place] [facility] [address] [id number] [place] [address] Nov, [facility] [place] [facility] [address] [id number] [place] [address] Nov, [facility] [place] [facility] [address] [id number] [facility] [place] [address] Nov, [facility] [place] [facility] [address] [id number] [place] [address] Nov, [facility] [place] [facility] [address] [id number] [place] [address] Nov, [facility] [place] [facility] [address] [id number] [place] [address] Nov, [facility] [place] [facility] [address] [id number] [place] [address] 22 Nov, 2013 [facility] [place] [facility] [address] [facility] [id number] [place] [address] Nov, [facility] [place] [facility] [address] [id number] [place] [address] Nov, [facility] [place] [facility] [address] [id number] [place] [address] 18 Nov, 2013 [facility] [place] [facility] [address] [id number] [place] [address] 18 Nov, 2013 [facility] [place] [facility] [address] [id number] [place] [address] Nov, [facility] [place] [facility] [address] [id number] [place] [address] Nov, [facility] [place] [facility] [address] [id number] [place] [address] Nov, [facility] [place] [facility] [address] [id number] [place] [address] Nov, [facility] [place] [facility] [address] [id number] [place] [address] Nov, [facility] [place] [facility] [address] [id number] [place] [address] Oct, [facility] [place] [facility] [address] [id number] [place] [address] Oct, [facility] [place] [facility] [address] [id number] [place] [address] Oct, [facility] [place] [facility] [address] [facility] [id number] [place] [address] Oct, [facility] [place] [facility] [address] [id number] [place] [address] 24 Oct, 2013 [facility] [place] [facility] [address] [id number] [place] [address] Oct, [facility] [place] [facility] [address] [id number] [place] [address] Oct, [facility] [place] [facility] [address] [facility] [id number] [place] [address] Oct, [facility] [place] [facility] [address] [facility] [id number] [place] [address] Oct, [facility] [address] [id number] [place] [address] Oct, [facility] [address] [id number] [place] [address] Oct, [facility] [address] [facility] [id number] [place] [address] Oct, [facility] [address] [id number] [place] [address] Oct, [facility] [address] [id number] [place] [address] Oct, [facility] [address] [id number] [place] [address] Oct, [facility] [address] [id number] [place] [address] Sep, [facility] [address] [id number] [place] [address] Sep, [facility] [address] [id number] [place] [address] Sep, [facility] [address] [id number] [place] [address] Sep, [facility] [address] [id number] [place] [address] Sep, [facility] [address] [id number] [place] [address] Sep, [facility] [address] [id number] [place] [address] Sep, [facility] [address] [id number] [place] [address] Sep, [facility] [address] [id number] [place] [address] Sep, [facility] [address] [id number] [place] [address] Sep, [facility] [address] [id number] [place] [address] Sep, [facility] [address] [id number] [place] [address] Sep, [facility] [address] [id number] [place] [address] Sep, [facility] [address] [id number] [place] [address] Aug, [facility] [address] [id number] [place] [address] Aug, [facility] [address] [id number] [place] [address] Aug, [facility] [address] [id number] [place] [address] 24 Aug, 2013 [facility] [address] [id number] [place] [address] Aug, [facility] [address] [id number] [place] [address] 17 Aug, 2013 [facility] [address] [id number] [place] [address] 16 Aug, 2013 [facility] [address] [id number] [place] [address] 16 Aug, 2013 [facility] [address] [id number] [place] [address] 12 Aug, 2013 [facility] [address] [id number] [place] [address] 12 Aug, 2013 [facility] [address] [id number] [place] [address] 10 Aug, 2013 [facility] [address] [id number] [place] [address] 10 Aug, 2013 [facility] [address] [id number] [place] [address] 02 Aug, 2013 [facility] [address] [id number] [place] [address] Aug, [facility] [address] [id number] [place] [address] Jul, [facility] [address] [id number] [place] [address] Jul, [facility] [address] [id number] [place] [address] 18 Jul, 2013 [facility] [address] [id number] [place] [address] 18 Jul, 2013 [facility] [address] [id number] [place] [address] 14 Jul, 2013 [facility] [address] [id number] [place] [address] 14 Jul, 2013 [facility] [address] [id number] [place] [address] 14 Jul, 2013 [facility] [address] [id number] [place] [address] 14 Jul, 2013 [facility] [address] [id number] [place] [address] 07 Jul, 2013 [facility] [address] [id number] [place] [address] 07 Jul, 2013 [facility] [address] [id number] [place] [address] 06 Jul, 2013 [facility] [address] [id number] [place] [address] 06 Jul, 2013 [facility] [address] [id number] [place] [address] 05 Jul, 2013 [facility] [address] [id number] [place] [address] 05 Jul, 2013 [facility] [address] [id number] [place] [address] 23 Jun, 2013 [facility] [address] [id number] [place] [address] 23 Jun, 2013 [facility] [address] [id number] [place] [address] 15 Jun, 2013 [facility] [address] [id number] [place] [address] 15 Jun, 2013 [facility] [address] [id number] [place] [address] 14 Jun, 2013 [facility] [address] [id number] [place] [address] 24 May, 2012 [facility] [address] [id number] [place] [address] 20 May, 2012 [facility] [address] [id number] [place] [address] 20 May, 2012 [facility] [address] [id number] [place] [address] 20 May, 2012 [facility] [address] [id number] [place] [address] 19 May, 2012 [facility] [address] [id number] [place] [address] 13 May, 2012 [facility] [address] [id number] [place] [address] 12 May, 2012 [facility] [address] [id number] [place] [address] 12 May, 2012 [facility] [address] [id number] [place] [address] 11 May, 2012 [facility] [address] [id number] [place] [address] 11 May, 2012 [facility] [address] [id number] [place] [address] 11 May, 2012 [facility] [address] [id number] [place] [address] 09 Sep, 2012 [facility] [address] [id number] [place] [address] May, [facility] [address] [id number] [facility] [place] [address] May, [facility] [address] [id number] [facility] [place] [address] May, [facility] [address] [id number] [place] [address] Apr, [facility] [address] [facility] [id number] [place] [address] Apr, [facility] [address] [id number] [place] [address] Apr, [facility] [address] [id number] [place] [address] Apr, [facility] [address] [id number] [place] [address] Apr, [facility] [address] [id number] [place] [address] Apr, [facility] [address] [id number] [place] [address] Apr, [facility] [address] [id number] [place] [address] Apr, [facility] [address] [id number] [place] [address] Apr, [facility] [address] [id number] [place] [address] Mar, [facility] [address] [id number] [place] [address] Mar, [facility] [address] [id number] [place] [address] Mar, [facility] [address] [id number] [place] [address] Mar, [facility] [address] [id number] [place] [address] Mar, [facility] [address] [facility] [id number] [place] [address] Mar, [facility] [address] [facility] [id number] [facility] [place] [address] Mar, [facility] [address] [id number] [place] [address] Mar, [facility] [address] [id number] [facility] [place] [address] Mar, [facility] [address] [facility] [id number] [place] [address] Mar, [facility] [address] [id number] [place] [address] Mar, [facility] [address] [id number] [place] [address] Feb, [facility] [address] [id number] [place] [address] Feb, [facility] [address] [id number] [place] [address] Feb, [facility] [address] [id number] [place] [address] Feb, [facility] [address] [id number] [place] [address] Feb, [facility] [address] [id number] [place] [address] Feb, [facility] [address] [facility] [id number] [place] [address] Feb, [facility] [address] [id number] [place] [address] Feb, [facility] [address] [id number] [place] [address] Feb, [facility] [address] [id number] [place] [address] January, [facility] [address] [id number] [facility] [place] [address] January, [facility] [address] [id number] [place] [address] January, [facility] [address] [id number] [place] [address] January, [facility] [address] [id number] [place] [address] January, [facility] [address] [id number] [place] [address] January, [facility] [address] [id number] [place] [address] January, [facility] [address] [id number] [place] [address] January, [facility] [address] [id number] [place] [address] January, [facility] [address] [id number] [place] [address] January, [facility] [address] [id number] [place] [address] January, [facility] [address] [id number] [place] [address] January, [facility] [address] [id number] [place] [address] January, [facility] [address] [id number] [place] [address] January, [facility] [address] [id number] [place] [address] January, [facility] [address] [id number] [place] [address] January, [facility] [address] [id number] [place] [address] January, [facility] [address] [id number] [place] [address] January, [facility] [address] [id number] [place] [address] January, [facility] [address] [id number] [place] [address] January, [facility] [address] [id number] [place] [address] January, [facility] [address] [id number] [place] [address] January, [facility] [address] [id number] [place] [address] January, [facility] [address] [id number] [place] [address] Dec, [facility] [address] [id number] [place] [address] Dec, [facility] [address] [id number] [place] [address] Dec, [facility] [address] [id number] [place] [address] Dec, [facility] [address] [id number] [place] [address] Dec, [facility] [address] [id number] [place] [address] Nov, [facility] [address] [id number] [place] [address] Oct, [facility] [address] [id number] [place] [address] Oct, [facility] [address] [id number] [place] [address] Oct, [facility] [address] [id number] [place] [address] Oct, [facility] [address] [id number] [place] [address] Oct, [facility] [address] [id number] [place] [address] Sep, [facility] [address] [id number] [place] [address] Sep, [facility] [address] [id number] [place] [address] Sep, [facility] [address] [id number] [place] [address] Aug, [facility] [address] [id number] [place] [address] Aug, [facility] [address] [id number] [place] [address] Aug, [facility] [address] [id number] [place] [address] Aug, [facility] [address] [id number] [place] [address] Jul, [facility] [address] [id number] [place] [address] Jul, [facility] [address] [id number] [place] [address] Jul, [facility] [address] [id number] [place] [address] Jul, [facility] [address] [id number] [place] [address] Jul, [facility] [address] [id number] [place] [address] Jul, [facility] [address] [id number] [place] [address] Jun, [facility] [address] [id number] [place] [address] 18 Jun, 2012 [facility] [address] [id number] [place] [address] Jun, [facility] [address] [id number] [place] [address] Jun, [facility] [address] [id number] [place] [address] Jun, 2011 [facility] [address] [id number] [place] [address] Jun, [facility] [address] [id number] [place] [address] Jun, [facility] [address] [id number] [place] [address] Jun, [facility] [address] [id number] [place] [address] Jun, [facility] [address] [id number] [place] [address] Jun, [facility] [address] [id number] [place] [address] May, [facility] [address] [id number] [place] [address] May, [facility] [address] [id number] [place] [address] May, [facility] [address] [id number] [place] [address] 30 Apr, 2012 [facility] [address] [id number] [place] [address] Apr, [facility] [address] [id number] [place] [address] Apr, [facility] [address] [id number] [place] [address] Apr, [facility] [address] [id number] [place] [address] Apr, [facility] [address] [id number] [place] [address] Apr, [facility] [address] [id number] [place] [address] Apr, [facility] [address] [id number] [place] [address] Apr, [facility] [address] [id number] [place] [address] Apr, [facility] [address] [id number] [place] [address] Mar, [facility] [address] [id number] [place] [address] Mar, [facility] [address] [id number] [place] [address] Mar, [facility] [address] [id number] [place] [address] Mar, [facility] [address] [id number] [place] [address] Feb, [facility] [address] [id number] [place] [address] Feb, [facility] [address] [id number] [place] [address] Feb, [facility] [address] [id number] [place] [address] January, [facility] [address] [id number] [place] [address] January, [facility] [address] [id number] [place] [address] January, [facility] [address] [id number] [place] [address] January, [facility] [address] [id number] [place] [address] January, [facility] [address] [id number] [place] [address] Dec, [facility] [address] [id number] [place] [address] Dec, [facility] [address] [id number] [place] [address] 16 Dec, 2011 [facility] [address] [id number] [place] [address] Oct, [facility] [address] [id number] [place] [address] Oct, [facility] [address] [id number] [place] [address] Oct, [facility] [address] [id number] [place] [address] Sep, [facility] [address] [id number] [place] [address] Sep, [facility] [address] [id number] [place] [address] Aug, [facility] [id number] [place] [address] Jul, [facility] [id number] [place] [address] Jul, [facility] [id number] [place] [address] Mar, [facility] [address] [id number] [place] [address] Aug, [facility] [id number] [place] [address] Jul, [facility] [address] [id number] [place] [address] Jul, [facility] [id number] [place] [address] Jul, [facility] [address] [id number] [place] [address] Jul, [facility] [address] [id number] [place] [address] 14 Jun, 2010 [facility] [address] [id number] [place] [address] Jun, [facility] [address] [id number] [place] [address] Apr, [facility] [address] [id number] [place] [address] 11 Aug, 2009 [facility] [id number] [place] [address] Jul, [facility] [id number] [place] [address] 17 Jul, 2009 [facility] [id number] [place] [address] Jul, [facility] [id number] [place] [address] Jun, [facility] [id number] [place] [address] 10 May, 2009 [facility] [id number] [place] [address] 14 Dec, 2008 [facility] [id number] [place] [address] Nov, [facility] [id number] [place] [address] Oct, [facility] [id number] [place] [address] 05 Aug, 2008 [facility] [id number] [place] [address] Aug, [facility] [id number] [place] [address] Jun, IMMUNIZATIONS No Known Immunizations SOCIAL HISTORY Never Assessed REASON FOR VISIT PLAN OF CARE VITAL SIGNS Height 66 in 2013-11-13 Weight 330 lbs 2013-11-13 Temperature 97.5 degrees Fahrenheit 2013-11-13 Heart Rate 94 bpm 2013-11-13 Respiratory Rate 28 2013-11-13 Blood pressure systolic 122 mmHg 2013-11-13 Blood pressure diastolic 70 mmHg 2013-11-13 MEDICATIONS Unknown Medications RESULTS No Results PROCEDURES Procedure Date Ordered Result Body Site MEASURE BLOOD OXYGEN LEVEL Nov 13, 2013 INSTRUCTIONS MEDICATIONS ADMINISTERED No Known [...] day s 04/2012 Hospitalization History [facility] [place]- Right wrist injury 03/29/2018
--- OUTSIDE RECORDS SUMMARY | 2020-04-09 00:24 | XMS REPORT ---
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 Name Role Phone Migration, Doctor Unavailable Unavailable PROBLEMS Type Condition ICD9-CM Code [id number] Code Onset Dates Condition S tatus SNOMED Code Problem Irregular menses N92.6 Active 801 54580 Problem Migraine with aura and without status migrainosu s, not intractable G43.109 Active 4167880 Problem Uncontrolled type 2 diabetes mellitus with hyperglycemia E11.65 Active 414183053 Problem Morbid obesity due to excess calories E66.01 Active 374377265 Problem RLS (restless legs syndrome) G25.81 A ctive 76883760 Problem Morbid obesity E66.01 Active 58406 6002 ALLERGIES No Information ENCOUNTERS Encounter Location Date Diagnosis [facility] [address] [address] 03 Nov, 2019 [facility] [address] [address] 02 Nov, 2019 [facility] [address] [address] 15 Oct, 2019 [facility] [address] [facility] [id number] [place] [address] 09 Oct, 2019 Influenza J11.1 [facility] [address] [address] 16 Sep, 2019 [facility] [address] [address] Sep, [facility] [address] [address] 14 Sep, 2019 [facility] [address] [address] 13 Sep, 2019 [facility] [address] [address] 10 Sep, 2019 Pneumonia of left lower lobe due to infe ctious organism J18.9 and Migraine with aura and without status migrainosus, not intractable G43.109 [place] [address] [address] 10 Sep, 2019 [facility] [address] [address] 10 Sep, 2019 [place] [address] [address] 08 Sep, 2019 [facility] [address] [address] 08 Sep, 2019 [place] [address] [address] 08 Sep, 2019 Pneumonia of left lower lobe due to infe ctious organism J18.9 and Migraine with aura and without status migrainosus, not intractable G43.109 [place] [address] [address] Aug, Irregular menses N92.6 ; Well woman exam Z01.419 ; Pelvic cramping R10.2 and Left breast lump N63.20 [place] [address] [address] Aug, [place] [address] [address] Aug, Well woman exam Z01.419 ; Left breast nenita mp N63.20 ; Irregular menses N92.6 ; Encounter for immunization Z23 ; Pelvic cramping R10.2 and Screening for cervical cancer Z12.4 [place] [address] [address] Aug, [place] [address] [address] Aug, [place] [address] [address] Aug, [place] [address] [address] Jul, [facility] [address] [address] Jun, [facility] [address] [address] Jun, [facility] [address] [address] Jun, [facility] [address] [address] Jun, BMI 50.0-59.9, adult Z68.43 [place] [address] [address] Jun, [facility] [address] [facility] [id number] [address] [place] [address] May, Acute non-recurrent sinusiti s, unspecified location J01.90 ; Diarrhea, unspecified R19.7 ; Vomiting, unspecified R11.10 and Morbid obesity E66.01 [place] [address] [address] Apr, [place] [address] [address] Apr, Anemia due to other cause, not classifie d D64.89 and D-dimer, elevated R79.89 [place] [address] [address] Apr, [facility] [address] [address] Apr, [facility] [address] [address] Mar, Anemia due to other cause, not classifie d D64.89 and D-dimer, elevated R79.89 [place] [address] [address] Mar, Leg edema, right R60.0 ; High risk medic ation use Z79.899 and Morbid obesity E66.01 [facility] [address] [address] Mar, BMI 50.0-59.9, adult Z68.43 [facility] [address] [address] Mar, [facility] [address] [address] January, Uncontrolled type 2 diabetes mellitus wi th hyperglycemia E11.65 ; RLS (restless legs syndrome) G25.81 and Morbid obesity E66.01 [place] [address] [address] Oct, Lipoma of right lower extremity D17.23 [place] [address] [address] Oct, Lipoma of right lower extremity D17.23 [place] [address] [address] Sep, [place] [address] [address] Sep, [place] [address] [address] Sep, [place] [address] [address] Sep, [place] [address] [address] Sep, [facility] [address] [address] Aug, Uncontrolled type 2 diabetes mellitus wi th hyperglycemia E11.65 ; Morbid obesity due to excess calories E66.01 ; Lipoma of torso D17.1 and BMI 50.0-59.9, adult Z68.43 [place] [address] [address] Jun, Encounter for immunization Z23 [facility] [address] [place] [address] Jul, [facility] [address] [id number] [place] [address] Jun, Encounter for immunization Z23 [facility] [address] [place] [id number] [place] [address] 30 May, 2016 [facility] [address] [place] [address] [id number] [place] [address] Jun, Encounter for immunization Z23 [facility] [address] [place] [id number] [place] [address] 29 May, 2015 [facility] [address] [place] [address] [id number] [place] [address] May, [facility] [address] [place] [address] [id number] [place] [address] Apr, [facility] [address] [place] [address] [id number] [place] [address] Feb, [facility] [address] [place] [id number] [place] [address] Feb, [facility] [address] [place] [id number] [place] [address] Feb, [facility] [address] [place] [id number] [place] [address] January, [facility] [address] [place] [id number] [place] [address] January, [facility] [address] [place] [address] [id number] [place] [address] Dec, [facility] [address] [place] [address] [id number] [place] [address] Dec, [facility] [address] [place] [address] [id number] [place] [address] Nov, [facility] [address] [place] [address] [id number] [place] [address] Nov, [facility] [address] [place] [id number] [place] [address] Nov, [facility] [address] [facility] [id number] [place] [address] Nov, [facility] [address] [facility] [id number] [place] [address] Nov, [facility] [address] [facility] [id number] [place] [address] Nov, [facility] [address] [id number] [place] [address] Nov, [facility] [address] [facility] [id number] [place] [address] Oct, [facility] [address] [id number] [place] [address] Oct, [facility] [address] [id number] [place] [address] Oct, [facility] [address] [id number] [place] [address] Oct, [facility] [address] [id number] [place] [address] Oct, [facility] [address] [id number] [place] [address] Sep, [facility] [address] [id number] [place] [address] Sep, [facility] [address] [id number] [place] [address] Sep, [facility] [address] [id number] [place] [address] Sep, [facility] [address] [id number] [place] [address] Sep, [facility] [address] [id number] [place] [address] Sep, [facility] [address] [id number] [place] [address] Sep, [facility] [address] [id number] [place] [address] Sep, [facility] [address] [id number] [place] [address] Sep, [facility] [address] [id number] [place] [address] Sep, [facility] [address] [id number] [place] [address] Aug, [facility] [address] [id number] [place] [address] Aug, [facility] [address] [id number] [place] [address] Aug, [facility] [address] [id number] [place] [address] Aug, [facility] [address] [id number] [place] [address] Aug, [facility] [address] [id number] [place] [address] Aug, [facility] [address] [id number] [place] [address] Aug, [facility] [address] [id number] [place] [address] Aug, [facility] [address] [id number] [place] [address] Aug, [facility] [address] [id number] [place] [address] Aug, [facility] [address] [id number] [place] [address] Aug, [facility] [address] [id number] [place] [address] Aug, [facility] [address] [id number] [place] [address] Aug, [facility] [address] [id number] [place] [address] Aug, [facility] [address] [id number] [place] [address] 17 Aug, 2014 [facility] [address] [id number] [place] [address] Aug, [facility] [address] [id number] [place] [address] 16 Aug, 2014 [facility] [address] [id number] [place] [address] 16 Aug, 2014 [facility] [address] [id number] [place] [address] Aug, [facility] [address] [id number] [place] [address] Aug, [facility] [address] [id number] [place] [address] Aug, [facility] [address] [id number] [place] [address] 08 Aug, 2014 [facility] [address] [id number] [place] [address] Aug, [facility] [address] [id number] [place] [address] Aug, [facility] [address] [id number] [place] [address] Jul, [facility] [address] [id number] [place] [address] Jul, [facility] [address] [id number] [place] [address] Jun, [facility] [address] [id number] [place] [address] Jun, [facility] [address] [id number] [place] [address] Jun, [facility] [address] [id number] [place] [address] Jun, [facility] [address] [id number] [place] [address] 15 Jun, 2014 [facility] [address] [facility] [id number] [place] [address] 15 Jun, 2014 [facility] [address] [facility] [id number] [place] [address] 14 Jun, 2014 [facility] [address] [id number] [place] [address] 14 Jun, 2014 [facility] [address] [facility] [id number] [place] [address] 13 Jun, 2013 [facility] [address] [facility] [id number] [place] [address] Jun, [facility] [address] [id number] [place] [address] 13 Jun, 2014 [facility] [address] [id number] [place] [address] Jun, [facility] [address] [id number] [place] [address] 06 Jun, 2013 [facility] [address] [id number] [place] [address] 06 Jun, 2014 [facility] [address] [id number] [place] [address] 26 May, 2013 [facility] [address] [id number] [place] [address] 26 Sep, 2013 [facility] [address] [id number] [place] [address] 22 May, 2013 [facility] [address] [id number] [place] [address] 22 Sep, 2013 [facility] [address] [id number] [place] [address] 04 Sep, 2013 [facility] [address] [id number] [place] [address] 04 Sep, 2013 [facility] [address] [id number] [place] [address] 02 Sep, 2013 [facility] [address] [id number] [place] [address] May, [facility] [address] [id number] [place] [address] Apr, [facility] [address] [facility] [id number] [place] [address] Apr, [facility] [address] [id number] [place] [address] Apr, [facility] [address] [facility] [id number] [place] [address] Apr, [facility] [address] [id number] [place] [address] Apr, [facility] [address] [id number] [place] [address] Apr, [facility] [address] [id number] [place] [address] Apr, [facility] [address] [id number] [place] [address] Apr, [facility] [address] [facility] [id number] [place] [address] Apr, [facility] [address] [id number] [place] [address] Mar, [facility] [address] [id number] [place] [address] Mar, [facility] [address] [id number] [place] [address] Mar, [facility] [address] [facility] [id number] [place] [address] Feb, [facility] [address] [id number] [place] [address] Feb, [facility] [address] [id number] [place] [address] Feb, [facility] [address] [id number] [place] [address] Feb, [facility] [address] [facility] [id number] [place] [address] Feb, [facility] [address] [facility] [id number] [place] [address] Feb, [facility] [address] [id number] [place] [address] Feb, [facility] [address] [id number] [place] [address] Feb, [facility] [address] [facility] [id number] [place] [address] Feb, [facility] [address] [id number] [place] [address] Feb, [facility] [address] [id number] [place] [address] Feb, [facility] [address] [id number] [place] [address] Feb, [facility] [address] [id number] [place] [address] Feb, [facility] [address] [id number] [place] [address] Feb, [facility] [address] [id number] [place] [address] Feb, [facility] [address] [id number] [place] [address] Feb, [facility] [address] [id number] [place] [address] January, [facility] [address] [id number] [place] [address] January, [facility] [address] [id number] [place] [address] January, [facility] [address] [id number] [place] [address] January, [facility] [address] [id number] [place] [address] January, [facility] [address] [facility] [id number] [place] [address] January, [facility] [address] [facility] [id number] [place] [address] January, [facility] [address] [id number] [place] [address] January, [facility] [address] [id number] [place] [address] January, [facility] [address] [facility] [id number] [place] [address] January, [facility] [address] [facility] [id number] [place] [address] January, [facility] [address] [id number] [place] [address] January, [facility] [address] [id number] [place] [address] January, [facility] [address] [facility] [id number] [place] [address] January, [facility] [address] [id number] [place] [address] January, [facility] [address] [id number] [place] [address] January, [facility] [address] [id number] [place] [address] January, [facility] [address] [facility] [id number] [place] [address] January, [facility] [address] [id number] [place] [address] January, [facility] [address] [id number] [place] [address] January, [facility] [address] [id number] [place] [address] January, [facility] [address] [id number] [place] [address] January, [facility] [address] [id number] [place] [address] January, [facility] [address] [id number] [place] [address] January, [facility] [address] [id number] [place] [address] January, [facility] [address] [id number] [place] [address] January, [facility] [address] [id number] [place] [address] Dec, [facility] [address] [id number] [place] [address] Dec, [facility] [place] [facility] [address] [id number] [place] [address] Dec, [facility] [place] [facility] [address] [id number] [place] [address] Dec, [facility] [place] [facility] [address] [id number] [place] [address] Dec, [facility] [place] [facility] [address] [id number] [place] [address] Dec, [facility] [place] [facility] [address] [id number] [place] [address] Dec, [facility] [place] [facility] [address] [id number] [place] [address] Dec, [facility] [place] [facility] [address] [id number] [place] [address] Dec, [facility] [place] [facility] [address] [id number] [place] [address] Dec, [facility] [place] [facility] [address] [id number] [place] [address] Dec, [facility] [place] [facility] [address] [id number] [place] [address] Dec, [facility] [place] [facility] [address] [facility] [id number] [place] [address] Dec, [facility] [place] [facility] [address] [id number] [place] [address] Dec, [facility] [place] [facility] [address] [id number] [place] [address] Dec, [facility] [place] [facility] [address] [id number] [place] [address] Dec, [facility] [place] [facility] [address] [facility] [id number] [place] [address] Dec, [facility] [place] [facility] [address] [id number] [place] [address] Dec, [facility] [place] [facility] [address] [id number] [place] [address] Dec, [facility] [place] [facility] [address] [id number] [place] [address] Dec, [facility] [place] [facility] [address] [id number] [place] [address] Dec, [facility] [place] [facility] [address] [id number] [place] [address] Dec, [facility] [place] [facility] [address] [id number] [place] [address] Nov, [facility] [place] [facility] [address] [id number] [place] [address] Nov, [facility] [place] [facility] [address] [id number] [place] [address] Nov, [facility] [place] [facility] [address] [id number] [place] [address] Nov, [facility] [place] [facility] [address] [id number] [place] [address] Nov, [facility] [place] [facility] [address] [id number] [place] [address] Nov, [facility] [place] [facility] [address] [id number] [place] [address] Nov, [facility] [place] [facility] [address] [facility] [id number] [place] [address] Nov, [facility] [place] [facility] [address] [id number] [place] [address] Nov, [facility] [place] [facility] [address] [id number] [place] [address] Nov, [facility] [place] [facility] [address] [id number] [place] [address] Nov, [facility] [place] [facility] [address] [facility] [id number] [place] [address] Nov, [facility] [place] [facility] [address] [id number] [place] [address] Nov, [facility] [place] [facility] [address] [id number] [place] [address] Nov, [facility] [place] [facility] [address] [id number] [place] [address] Nov, [facility] [place] [facility] [address] [id number] [place] [address] Nov, [facility] [place] [facility] [address] [id number] [place] [address] Oct, [facility] [place] [facility] [address] [id number] [place] [address] Oct, [facility] [place] [facility] [address] [id number] [place] [address] 24 Oct, 2013 [facility] [place] [facility] [address] [id number] [place] [address] 24 Oct, 2013 [facility] [place] [facility] [address] [id number] [place] [address] Oct, [facility] [place] [facility] [address] [id number] [place] [address] Oct, [facility] [place] [facility] [address] [id number] [place] [address] Oct, [facility] [place] [facility] [address] [facility] [id number] [place] [address] Oct, [facility] [place] [facility] [address] [facility] [id number] [place] [address] Oct, [facility] [place] [facility] [address] [facility] [id number] [place] [address] Oct, [facility] [place] [facility] [address] [id number] [place] [address] Oct, [facility] [place] [facility] [address] [facility] [id number] [place] [address] Oct, [facility] [place] [facility] [address] [id number] [place] [address] Oct, [facility] [place] [facility] [address] [id number] [place] [address] Oct, [facility] [place] [facility] [address] [id number] [place] [address] Oct, [facility] [place] [facility] [address] [id number] [place] [address] Sep, [facility] [place] [facility] [address] [id number] [place] [address] Sep, [facility] [place] [facility] [address] [id number] [place] [address] Sep, [facility] [place] [facility] [address] [id number] [place] [address] Sep, [facility] [place] [facility] [address] [id number] [place] [address] Sep, [facility] [place] [facility] [address] [id number] [place] [address] Sep, [facility] [place] [facility] [address] [id number] [place] [address] Sep, [facility] [place] [facility] [address] [id number] [place] [address] Sep, [facility] [place] [facility] [address] [id number] [place] [address] 10 Sep, 2013 [facility] [place] [facility] [address] [id number] [place] [address] Sep, [facility] [place] [facility] [address] [id number] [place] [address] Sep, [facility] [place] [facility] [address] [id number] [place] [address] Sep, [facility] [place] [facility] [address] [id number] [place] [address] Sep, [facility] [place] [facility] [address] [id number] [place] [address] Aug, [facility] [place] [facility] [address] [id number] [place] [address] Aug, [facility] [place] [facility] [address] [id number] [place] [address] Aug, [facility] [place] [facility] [address] [id number] [place] [address] Aug, [facility] [place] [facility] [address] [id number] [place] [address] Aug, [facility] [place] [facility] [address] [id number] [place] [address] Aug, [facility] [place] [facility] [address] [id number] [place] [address] 16 Aug, 2013 [facility] [place] [facility] [address] [id number] [place] [address] 16 Aug, 2013 [facility] [place] [facility] [address] [id number] [place] [address] 12 Aug, 2013 [facility] [place] [facility] [address] [id number] [place] [address] Aug, [facility] [place] [facility] [address] [id number] [place] [address] Aug, [facility] [place] [facility] [address] [id number] [place] [address] Aug, [facility] [place] [facility] [address] [id number] [place] [address] 02 Aug, 2013 [facility] [place] [facility] [address] [id number] [place] [address] Aug, 2012 [facility] [place] [facility] [address] [id number] [place] [address] Jul, [facility] [place] [facility] [address] [id number] [place] [address] Jul, [facility] [place] [facility] [address] [id number] [place] [address] 18 Jul, 2013 [facility] [place] [facility] [address] [id number] [place] [address] 18 Jul, 2013 [facility] [place] [facility] [address] [id number] [place] [address] 14 Jul, 2013 [facility] [place] [facility] [address] [id number] [place] [address] 14 Jul, 2013 [facility] [place] [facility] [address] [id number] [place] [address] 14 Jul, 2013 [facility] [place] [facility] [address] [id number] [place] [address] 14 Jul, 2013 [facility] [place] [facility] [address] [id number] [place] [address] Jul, [facility] [place] [facility] [address] [id number] [place] [address] Jul, [facility] [place] [facility] [address] [id number] [place] [address] 06 Jul, 2013 [facility] [place] [facility] [address] [id number] [place] [address] 06 Jul, 2013 [facility] [place] [facility] [id number] [place] [address] Jul, [facility] [place] [facility] [address] [id number] [place] [address] 05 Jul, 2013 [facility] [place] [facility] [address] [id number] [place] [address] Jun, 2012 [facility] [place] [facility] [address] [id number] [place] [address] 23 Jun, 2012 [facility] [place] [facility] [address] [facility] [id number] [place] [address] 15 Jun, 2012 [facility] [place] [facility] [address] [id number] [place] [address] 15 Jun, 2012 [facility] [place] [facility] [address] [id number] [place] [address] 14 Jun, 2012 [facility] [place] [facility] [address] [facility] [id number] [place] [address] 24 Sep, 2012 [facility] [place] [facility] [address] [id number] [place] [address] 20 Sep, 2012 [facility] [place] [facility] [address] [id number] [place] [address] 20 Sep, 2012 [facility] [place] [facility] [address] [id number] [place] [address] 20 Sep, 2012 [facility] [place] [facility] [address] [id number] [place] [address] 19 Sep, 2012 [facility] [place] [facility] [address] [id number] [place] [address] 13 Sep, 2012 [facility] [place] [facility] [address] [id number] [place] [address] 12 Sep, 2012 [facility] [place] [facility] [address] [id number] [place] [address] 12 Sep, 2012 [facility] [place] [facility] [address] [id number] [place] [address] 11 Sep, 2012 [facility] [place] [facility] [address] [id number] [place] [address] 11 Sep, 2012 [facility] [place] [facility] [address] [id number] [place] [address] 11 Sep, 2012 [facility] [place] [facility] [address] [id number] [place] [address] 09 Sep, 2012 [facility] [place] [facility] [address] [id number] [place] [address] 05 May, 2012 [facility] [place] [facility] [address] [id number] [place] [address] May, [facility] [place] [facility] [address] [facility] [id number] [place] [address] May, [facility] [place] [facility] [address] [id number] [place] [address] Apr, [facility] [place] [facility] [address] [id number] [place] [address] Apr, [facility] [place] [facility] [address] [id number] [place] [address] Apr, [facility] [place] [facility] [address] [id number] [place] [address] Apr, [facility] [place] [facility] [address] [id number] [place] [address] Apr, [facility] [place] [facility] [address] [id number] [place] [address] Apr, [facility] [place] [facility] [address] [id number] [place] [address] Apr, [facility] [place] [facility] [address] [id number] [place] [address] Apr, [facility] [place] [facility] [address] [id number] [place] [address] Apr, [facility] [place] [facility] [address] [id number] [place] [address] Mar, [facility] [place] [facility] [address] [id number] [place] [address] Mar, [facility] [place] [facility] [address] [id number] [place] [address] Mar, [facility] [place] [facility] [address] [id number] [place] [address] Mar, [facility] [place] [facility] [address] [id number] [place] [address] Mar, [facility] [place] [facility] [address] [id number] [place] [address] Mar, [facility] [place] [facility] [address] [id number] [place] [address] Mar, [facility] [place] [facility] [address] [id number] [place] [address] Mar, [facility] [place] [facility] [address] [id number] [place] [address] Mar, [facility] [place] [facility] [address] [id number] [place] [address] Mar, [facility] [place] [facility] [address] [id number] [place] [address] Mar, [facility] [place] [facility] [address] [id number] [place] [address] Feb, [facility] [place] [facility] [address] [id number] [place] [address] Feb, [facility] [place] [facility] [address] [id number] [place] [address] Feb, [facility] [place] [facility] [address] [id number] [place] [address] Feb, [facility] [place] [facility] [address] [id number] [place] [address] Feb, [facility] [place] [facility] [address] [id number] [place] [address] Feb, [facility] [place] [facility] [address] [id number] [place] [address] Feb, [facility] [place] [facility] [address] [id number] [place] [address] Feb, [facility] [place] [facility] [address] [id number] [place] [address] Feb, [facility] [place] [facility] [address] [id number] [place] [address] January, [facility] [place] [facility] [address] [id number] [place] [address] January, [facility] [address] [id number] [place] [address] January, [facility] [place] [facility] [address] [id number] [place] [address] January, [facility] [place] [facility] [address] [id number] [place] [address] January, [facility] [place] [facility] [address] [id number] [place] [address] January, [facility] [place] [facility] [address] [id number] [place] [address] January, [facility] [place] [facility] [address] [id number] [place] [address] January, [facility] [place] [facility] [address] [id number] [place] [address] January, [facility] [place] [facility] [address] [id number] [place] [address] January, [facility] [place] [facility] [address] [id number] [place] [address] January, [facility] [place] [facility] [address] [id number] [place] [address] January, [facility] [place] [facility] [address] [id number] [place] [address] January, [facility] [place] [facility] [address] [id number] [place] [address] January, [facility] [place] [facility] [address] [id number] [place] [address] January, [facility] [place] [facility] [address] [id number] [place] [address] January, [facility] [place] [facility] [address] [id number] [place] [address] January, [facility] [place] [facility] [address] [id number] [place] [address] January, [facility] [place] [facility] [address] [id number] [place] [address] January, [facility] [address] [id number] [place] [address] January, [facility] [place] [facility] [address] [id number] [place] [address] January, [facility] [place] [facility] [address] [id number] [place] [address] January, [facility] [place] [facility] [address] [id number] [place] [address] January, [facility] [place] [facility] [address] [id number] [place] [address] Dec, [facility] [place] [facility] [address] [id number] [place] [address] Dec, [facility] [place] [facility] [address] [id number] [place] [address] Dec, [facility] [place] [facility] [address] [id number] [place] [address] Dec, [facility] [place] [facility] [address] [id number] [place] [address] Dec, [facility] [place] [facility] [address] [id number] [place] [address] Nov, [facility] [place] [facility] [address] [id number] [place] [address] Oct, [facility] [place] [facility] [address] [id number] [place] [address] Oct, [facility] [place] [facility] [address] [id number] [place] [address] Oct, [facility] [place] [facility] [id number] [place] [address] Oct, [facility] [place] [facility] [address] [id number] [place] [address] Oct, [facility] [place] [facility] [address] [id number] [place] [address] Sep, [facility] [place] [facility] [address] [id number] [place] [address] Sep, [facility] [place] [facility] [address] [id number] [place] [address] Sep, [facility] [place] [facility] [address] [id number] [place] [address] Aug, [facility] [place] [facility] [id number] [place] [address] Aug, [facility] [place] [facility] [address] [id number] [place] [address] Aug, [facility] [place] [facility] [id number] [place] [address] Aug, [facility] [place] [facility] [id number] [place] [address] Jul, [facility] [place] [facility] [id number] [place] [address] Jul, [facility] [place] [facility] [address] [id number] [place] [address] Jul, [facility] [place] [facility] [id number] [place] [address] Jul, [facility] [place] [facility] [id number] [place] [address] Jul, [facility] [place] [facility] [id number] [place] [address] Jul, [facility] [place] [facility] [address] [id number] [place] [address] Jun, [facility] [place] [facility] [address] [id number] [place] [address] Jun, [facility] [place] [facility] [id number] [place] [address] Jun, [facility] [place] [facility] [address] [id number] [place] [address] Jun, [facility] [place] [facility] [address] [id number] [place] [address] Jun, [facility] [place] [facility] [address] [id number] [place] [address] Jun, [facility] [place] [facility] [address] [id number] [place] [address] Jun, [facility] [place] [facility] [address] [id number] [place] [address] Jun, [facility] [place] [facility] [address] [id number] [place] [address] Jun, [facility] [place] [facility] [address] [id number] [place] [address] Jun, [facility] [place] [facility] [address] [id number] [place] [address] May, 2011 [facility] [place] [facility] [address] [id number] [place] [address] May, [facility] [place] [facility] [address] [id number] [place] [address] May, [facility] [place] [facility] [address] [id number] [place] [address] Apr, [facility] [place] [facility] [address] [id number] [place] [address] Apr, [facility] [place] [facility] [address] [id number] [place] [address] Apr, [facility] [place] [facility] [address] [id number] [place] [address] Apr, [facility] [place] [facility] [address] [id number] [place] [address] Apr, [facility] [place] [facility] [address] [id number] [place] [address] Apr, [facility] [place] [facility] [address] [id number] [place] [address] Apr, [facility] [place] [facility] [address] [id number] [place] [address] Apr, [facility] [place] [facility] [address] [id number] [place] [address] Apr, [facility] [place] [facility] [address] [id number] [place] [address] Mar, [facility] [place] [facility] [address] [id number] [place] [address] Mar, [facility] [place] [facility] [address] [id number] [place] [address] Mar, [facility] [place] [facility] [address] [id number] [place] [address] Mar, [facility] [place] [facility] [address] [id number] [place] [address] Feb, [facility] [place] [facility] [address] [id number] [place] [address] Feb, [facility] [place] [facility] [address] [id number] [place] [address] Feb, [facility] [place] [facility] [address] [id number] [place] [address] January, [facility] [place] [facility] [address] [id number] [place] [address] January, [facility] [place] [facility] [address] [id number] [place] [address] January, [facility] [place] [facility] [address] [id number] [place] [address] January, [facility] [place] [facility] [address] [id number] [place] [address] January, [facility] [place] [facility] [address] [id number] [place] [address] Dec, [facility] [place] [facility] [address] [id number] [place] [address] Dec, [facility] [place] [facility] [address] [id number] [place] [address] Dec, [facility] [place] [facility] [address] [id number] [place] [address] Oct, [facility] [address] [id number] [place] [address] Oct, [facility] [place] [facility] [address] [id number] [place] [address] Oct, [facility] [place] [facility] [address] [id number] [place] [address] Sep, [facility] [place] [facility] [address] [id number] [place] [address] Sep, [facility] [place] [facility] [address] [id number] [place] [address] Aug, [facility] [place] [facility] [address] [id number] [place] [address] Jul, [facility] [place] [facility] [address] [id number] [place] [address] Jul, [facility] [place] [facility] [id number] [place] [address] Mar, [facility] [address] [id number] [place] [address] Aug, [facility] [address] [id number] [place] [address] Jul, [facility] [address] [id number] [place] [address] Jul, [facility] [address] [id number] [place] [address] Jul, [facility] [address] [id number] [place] [address] Jul, [facility] [address] [id number] [place] [address] Jun, [facility] [address] [id number] [place] [address] Jun, [facility] [address] [id number] [place] [address] Apr, [facility] [address] [id number] [place] [address] Aug, [facility] [address] [id number] [place] [address] Jul, [facility] [address] [id number] [place] [address] Jul, [facility] [address] [id number] [place] [address] Jul, [facility] [id number] [place] [address] Jun, [facility] [id number] [place] [address] 10 May, 2009 [facility] [id number] [place] [address] 14 Dec, 2008 [facility] [id number] [place] [address] Nov, [facility] [id number] [place] [address] 10 Oct, 2008 [facility] [address] [id number] [place] [address] Aug, [facility] [id number] [place] [address] Aug, [facility] [address] [id number] [place] [address] Jun, IMMUNIZATIONS No Known Immunizations SOCIAL HISTORY [...] x 3 day s 04/2012 Hospitalization History [facility] [place]- Right wrist injury 03/29/2018
--- OUTSIDE RECORDS SUMMARY | 2020-04-09 00:24 | XMS REPORT ---
Author Author Kateryna Turner Doctor Organization [facility] Address Unknown Phone Unavailable Care Team Providers Care Mask Inspector Name Role Phone Migration, Doctor Unavailable Unavailable PROBLEMS Type Condition ICD9-CM Code WZD11-DX Code Onset Dates Condition S tatus SNOMED Code Problem Irregular menses N92.6 Active 801 99211 Problem Migraine with aura and without status migrainosu s, not intractable G43.109 Active 3348941 Problem Uncontrolled type 2 diabetes mellitus with hyperglycemia E11.65 Active 329130105 Problem Morbid obesity due to excess calories E66.01 Active 242152114 Problem RLS (restless legs syndrome) G25.81 A ctive 32623129 Problem Morbid obesity E66.01 Active 85823 6002 ALLERGIES No Information ENCOUNTERS Encounter Location Date Diagnosis [facility] [address] [address] 03 Nov, 2019 [facility] [address] [address] 02 Nov, 2019 [facility] [address] [address] 15 Oct, 2019 [facility] [address] [facility] [id number] [place] [address] 09 Oct, 2019 Influenza J11.1 [facility] [address] [address] 16 Sep, 2019 [facility] [address] [address] Sep, [facility] [address] [address] 14 Sep, 2019 [facility] [address] [address] 13 Sep, 2019 [facility] [address] [address] 10 Sep, 2019 Pneumonia of left lower lobe due to infe ctious organism J18.9 and Migraine with aura and without status migrainosus, not intractable G43.109 [place] [address] [address] 10 Sep, 2019 [facility] [address] [address] 10 Sep, 2019 [place] [address] [address] 08 Sep, 2019 [facility] [address] [address] 08 Sep, 2019 [place] [address] [address] 08 Sep, 2019 Pneumonia of left lower lobe due to infe ctious organism J18.9 and Migraine with aura and without status migrainosus, not intractable G43.109 [place] [address] [address] Aug, Irregular menses N92.6 ; Well woman exam Z01.419 ; Pelvic cramping R10.2 and Left breast lump N63.20 [place] [address] [address] Aug, [place] [address] [address] Aug, Well woman exam Z01.419 ; Left breast nenita mp N63.20 ; Irregular menses N92.6 ; Encounter for immunization Z23 ; Pelvic cramping R10.2 and Screening for cervical cancer Z12.4 [place] [address] [address] Aug, [place] [address] [address] Aug, [place] [address] [address] Aug, [place] [address] [address] Jul, [facility] [address] [address] Jun, [facility] [address] [address] Jun, [facility] [address] [address] Jun, [facility] [address] [address] Jun, BMI 50.0-59.9, adult Z68.43 [place] [address] [address] Jun, [facility] [address] [facility] [id number] [address] [place] [address] May, Acute non-recurrent sinusiti s, unspecified location J01.90 ; Diarrhea, unspecified R19.7 ; Vomiting, unspecified R11.10 and Morbid obesity E66.01 [place] [address] [address] Apr, [place] [address] [address] Apr, Anemia due to other cause, not classifie d D64.89 and D-dimer, elevated R79.89 [place] [address] [address] Apr, [facility] [address] [address] Apr, [facility] [address] [address] Mar, Anemia due to other cause, not classifie d D64.89 and D-dimer, elevated R79.89 [place] [address] [address] Mar, Leg edema, right R60.0 ; High risk medic ation use Z79.899 and Morbid obesity E66.01 [facility] [address] [address] Mar, BMI 50.0-59.9, adult Z68.43 [facility] [address] [address] Mar, [facility] [address] [address] January, Uncontrolled type 2 diabetes mellitus wi th hyperglycemia E11.65 ; RLS (restless legs syndrome) G25.81 and Morbid obesity E66.01 [place] [address] [address] Oct, Lipoma of right lower extremity D17.23 [place] [address] [address] Oct, Lipoma of right lower extremity D17.23 [place] [address] [address] Sep, [place] [address] [address] Sep, [place] [address] [address] Sep, [place] [address] [address] Sep, [place] [address] [address] Sep, [facility] [address] [address] Aug, Uncontrolled type 2 diabetes mellitus wi th hyperglycemia E11.65 ; Morbid obesity due to excess calories E66.01 ; Lipoma of torso D17.1 and BMI 50.0-59.9, adult Z68.43 [place] [address] [address] Jun, Encounter for immunization Z23 [facility] [address] [place] [address] Jul, [facility] [address] [id number] [place] [address] Jun, Encounter for immunization Z23 [facility] [address] [place] [id number] [place] [address] 30 May, 2016 [facility] [address] [id number] [place] [address] Jun, Encounter for immunization Z23 [facility] [address] [place] [id number] [place] [address] 29 May, 2015 [facility] [address] [place] [id number] [place] [address] May, [facility] [address] [id number] [place] [address] Apr, [facility] [address] [id number] [place] [address] Feb, [facility] [address] [id number] [place] [address] Feb, [facility] [id number] [place] [address] Feb, [facility] [id number] [place] [address] January, [facility] [id number] [place] [address] January, [facility] [id number] [place] [address] Dec, [facility] [address] [id number] [place] [address] Dec, [facility] [id number] [place] [address] Nov, [facility] [address] [id number] [place] [address] Nov, [facility] [address] [id number] [place] [address] Nov, [facility] [address] [facility] [id number] [place] [address] Nov, [facility] [address] [facility] [id number] [facility] [place] [address] Nov, [facility] [address] [facility] [id number] [place] [address] Nov, [facility] [address] [id number] [place] [address] Nov, [facility] [address] [facility] [id number] [place] [address] Oct, [facility] [address] [id number] [place] [address] Oct, [facility] [address] [id number] [place] [address] Oct, [facility] [address] [id number] [place] [address] Oct, [facility] [address] [id number] [place] [address] Oct, [facility] [address] [id number] [place] [address] Sep, [facility] [address] [id number] [place] [address] Sep, [facility] [address] [id number] [place] [address] Sep, [facility] [address] [id number] [place] [address] Sep, [facility] [address] [id number] [place] [address] Sep, [facility] [address] [id number] [place] [address] Sep, [facility] [address] [id number] [place] [address] Sep, [facility] [address] [id number] [place] [address] Sep, [facility] [address] [id number] [place] [address] Sep, [facility] [address] [id number] [place] [address] Sep, [facility] [address] [id number] [place] [address] Aug, [facility] [address] [id number] [place] [address] Aug, [facility] [address] [id number] [place] [address] Aug, [facility] [address] [id number] [place] [address] Aug, [facility] [address] [id number] [place] [address] Aug, [facility] [address] [id number] [place] [address] Aug, [facility] [address] [id number] [place] [address] Aug, [facility] [address] [id number] [place] [address] Aug, [facility] [address] [id number] [place] [address] Aug, [facility] [address] [id number] [place] [address] Aug, [facility] [address] [id number] [place] [address] Aug, [facility] [address] [id number] [place] [address] Aug, [facility] [address] [id number] [place] [address] Aug, [facility] [address] [id number] [place] [address] Aug, [facility] [address] [id number] [place] [address] 17 Aug, 2014 [facility] [address] [id number] [place] [address] Aug, [facility] [address] [id number] [place] [address] 16 Aug, 2014 [facility] [address] [id number] [place] [address] 16 Aug, 2014 [facility] [address] [id number] [place] [address] Aug, [facility] [address] [id number] [place] [address] Aug, [facility] [address] [id number] [place] [address] Aug, [facility] [address] [id number] [place] [address] 08 Aug, 2014 [facility] [address] [id number] [place] [address] Aug, [facility] [address] [id number] [place] [address] Aug, [facility] [address] [id number] [place] [address] Jul, [facility] [address] [id number] [place] [address] Jul, [facility] [address] [id number] [place] [address] Jun, [facility] [address] [id number] [place] [address] Jun, [facility] [address] [id number] [place] [address] Jun, [facility] [address] [id number] [place] [address] Jun, [facility] [address] [id number] [place] [address] 15 Jun, 2014 [facility] [address] [facility] [id number] [place] [address] 15 Jun, 2014 [facility] [address] [facility] [id number] [place] [address] 14 Jun, 2014 [facility] [address] [id number] [place] [address] 14 Jun, 2014 [facility] [address] [facility] [id number] [place] [address] 13 Jun, 2013 [facility] [address] [facility] [id number] [place] [address] Jun, [facility] [address] [id number] [place] [address] 13 Jun, 2014 [facility] [address] [id number] [place] [address] Jun, [facility] [address] [id number] [place] [address] 06 Jun, 2013 [facility] [address] [id number] [place] [address] 06 Jun, 2014 [facility] [address] [id number] [place] [address] 26 May, 2013 [facility] [address] [id number] [place] [address] 26 Sep, 2013 [facility] [address] [id number] [place] [address] 22 May, 2013 [facility] [address] [id number] [place] [address] 22 Sep, 2013 [facility] [address] [id number] [place] [address] 04 Sep, 2013 [facility] [address] [id number] [place] [address] 04 Sep, 2013 [facility] [address] [id number] [place] [address] 02 Sep, 2013 [facility] [address] [id number] [facility] [place] [address] May, [facility] [address] [id number] [place] [address] Apr, [facility] [address] [facility] [id number] [place] [address] Apr, [facility] [address] [id number] [place] [address] Apr, [facility] [address] [facility] [id number] [facility] [place] [address] Apr, [facility] [address] [id number] [facility] [place] [address] Apr, [facility] [address] [id number] [place] [address] Apr, [facility] [address] [id number] [place] [address] Apr, [facility] [address] [id number] [place] [address] Apr, [facility] [address] [facility] [id number] [place] [address] Apr, [facility] [address] [id number] [place] [address] Mar, [facility] [address] [id number] [place] [address] Mar, [facility] [address] [id number] [place] [address] Mar, [facility] [address] [facility] [id number] [place] [address] Feb, [facility] [address] [id number] [place] [address] Feb, [facility] [address] [id number] [place] [address] Feb, [facility] [address] [id number] [place] [address] Feb, [facility] [address] [facility] [id number] [place] [address] Feb, [facility] [address] [facility] [id number] [place] [address] Feb, [facility] [address] [id number] [place] [address] Feb, [facility] [address] [id number] [place] [address] Feb, [facility] [address] [facility] [id number] [place] [address] Feb, [facility] [address] [id number] [place] [address] Feb, [facility] [address] [id number] [place] [address] Feb, [facility] [address] [id number] [place] [address] Feb, [facility] [address] [id number] [place] [address] Feb, [facility] [address] [id number] [place] [address] Feb, [facility] [address] [id number] [place] [address] Feb, [facility] [address] [id number] [place] [address] Feb, [facility] [address] [id number] [place] [address] January, [facility] [address] [id number] [place] [address] January, [facility] [address] [id number] [place] [address] January, [facility] [address] [id number] [place] [address] January, [facility] [address] [id number] [place] [address] January, [facility] [address] [facility] [id number] [place] [address] January, [facility] [address] [facility] [id number] [place] [address] January, [facility] [address] [facility] [id number] [facility] [address] January, [facility] [address] [id number] [facility] [place] [address] January, [facility] [address] [facility] [id number] [facility] [place] [address] January, [facility] [address] [facility] [id number] [place] [address] January, [facility] [address] [facility] [id number] [place] [address] January, [facility] [address] [id number] [place] [address] January, [facility] [address] [facility] [id number] [place] [address] January, [facility] [address] [id number] [place] [address] January, [facility] [address] [facility] [id number] [place] [address] January, [facility] [address] [facility] [id number] [place] [address] January, [facility] [address] [facility] [id number] [place] [address] January, [facility] [address] [id number] [place] [address] January, [facility] [address] [id number] [place] [address] January, [facility] [address] [facility] [id number] [place] [address] January, [facility] [address] [facility] [id number] [place] [address] January, [facility] [address] [id number] [place] [address] January, [facility] [address] [id number] [place] [address] January, [facility] [address] [facility] [id number] [place] [address] January, [facility] [address] [facility] [id number] [place] [address] January, [facility] [address] [id number] [place] [address] Dec, [facility] [address] [id number] [place] [address] Dec, [facility] [address] [id number] [place] [address] Dec, [facility] [address] [facility] [id number] [place] [address] Dec, [facility] [address] [id number] [place] [address] Dec, [facility] [address] [facility] [address] [id number] [place] [address] Dec, [facility] [address] [id number] [place] [address] Dec, [facility] [address] [id number] [place] [address] Dec, [facility] [address] [id number] [place] [address] Dec, [facility] [address] [id number] [place] [address] Dec, [facility] [address] [facility] [id number] [place] [address] Dec, [facility] [address] [id number] [place] [address] Dec, [facility] [address] [facility] [id number] [place] [address] Dec, [facility] [place] [facility] [address] [facility] [address] [id number] [place] [address] Dec, [facility] [place] [facility] [address] [id number] [place] [address] Dec, [facility] [place] [facility] [address] [address] [id number] [place] [address] Dec, [facility] [place] [facility] [address] [facility] [id number] [place] [address] Dec, [facility] [place] [facility] [address] [facility] [address] [id number] [place] [address] Dec, [facility] [place] [facility] [address] [id number] [place] [address] Dec, [facility] [place] [facility] [address] [id number] [place] [address] Dec, [facility] [place] [facility] [address] [facility] [id number] [place] [address] Dec, [facility] [place] [facility] [address] [id number] [place] [address] Dec, [facility] [place] [facility] [address] [id number] [place] [address] Nov, [facility] [place] [facility] [address] [id number] [place] [address] Nov, [facility] [place] [facility] [address] [id number] [place] [address] Nov, [facility] [place] [facility] [address] [id number] [place] [address] Nov, [facility] [place] [facility] [address] [facility] [address] [id number] [place] [address] Nov, [facility] [place] [facility] [address] [id number] [place] [address] Nov, [facility] [place] [facility] [address] [address] [id number] [place] [address] Nov, [facility] [place] [facility] [address] [facility] [id number] [facility] [place] [address] Nov, [facility] [place] [facility] [address] [address] [id number] [facility] [place] [address] Nov, [facility] [place] [facility] [address] [id number] [facility] [place] [address] Nov, [facility] [place] [facility] [address] [address] [id number] [facility] [place] [address] Nov, [facility] [place] [facility] [address] [facility] [id number] [facility] [place] [address] Nov, [facility] [place] [facility] [address] [address] [id number] [place] [address] Nov, [facility] [place] [facility] [id number] [place] [address] Nov, [facility] [place] [facility] [address] [id number] [facility] [place] [address] Nov, [facility] [place] [facility] [address] [id number] [facility] [place] [address] Nov, [facility] [place] [facility] [id number] [facility] [place] [address] Oct, [facility] [place] [facility] [id number] [place] [address] Oct, [facility] [place] [facility] [address] [id number] [facility] [place] [address] 24 Oct, 2013 [facility] [place] [facility] [id number] [facility] [place] [address] 24 Oct, 2013 [facility] [place] [facility] [id number] [place] [address] Oct, [facility] [place] [facility] [id number] [place] [address] Oct, [facility] [place] [facility] [address] [id number] [place] [address] Oct, [facility] [place] [facility] [address] [facility] [id number] [facility] [place] [address] Oct, [facility] [place] [facility] [address] [facility] [id number] [place] [address] Oct, [facility] [place] [facility] [address] [facility] [id number] [facility] [place] [address] Oct, [facility] [place] [facility] [address] [facility] [id number] [facility] [place] [address] Oct, [facility] [place] [facility] [address] [facility] [id number] [facility] [place] [address] Oct, [facility] [place] [facility] [address] [facility] [id number] [facility] [place] [address] Oct, [facility] [place] [facility] [id number] [place] [address] Oct, [facility] [place] [facility] [address] [id number] [place] [address] Oct, [facility] [place] [facility] [id number] [place] [address] Sep, [facility] [place] [facility] [id number] [place] [address] Sep, [facility] [place] [facility] [address] [id number] [place] [address] Sep, [facility] [place] [facility] [id number] [place] [address] Sep, [facility] [place] [facility] [address] [id number] [place] [address] Sep, [facility] [place] [facility] [address] [id number] [place] [place] [address] Sep, [facility] [place] [facility] [id number] [place] [address] Sep, [facility] [place] [facility] [id number] [place] [address] Sep, [facility] [place] [facility] [id number] [place] [address] 10 Sep, 2013 [facility] [place] [facility] [id number] [place] [address] Sep, [facility] [place] [facility] [id number] [place] [address] Sep, [facility] [place] [facility] [id number] [place] [address] Sep, [facility] [place] [facility] [id number] [place] [address] Sep, [facility] [place] [facility] [id number] [place] [address] Aug, [facility] [place] [facility] [id number] [place] [address] Aug, [facility] [place] [facility] [id number] [place] [address] Aug, [facility] [place] [facility] [id number] [place] [address] Aug, [facility] [place] [facility] [id number] [place] [address] Aug, [facility] [place] [facility] [id number] [place] [address] Aug, [facility] [place] [facility] [id number] [place] [address] 16 Aug, 2013 [facility] [place] [facility] [id number] [place] [address] 16 Aug, 2013 [facility] [place] [facility] [id number] [place] [address] 12 Aug, 2013 [facility] [place] [facility] [id number] [place] [address] Aug, [facility] [place] [facility] [id number] [place] [address] Aug, [facility] [place] [facility] [id number] [place] [address] Aug, [facility] [place] [facility] [id number] [place] [address] 02 Aug, 2013 [facility] [place] [facility] [id number] [place] [address] Aug, 2012 [facility] [place] [facility] [id number] [place] [address] Jul, [facility] [place] [facility] [id number] [place] [address] Jul, [facility] [place] [facility] [id number] [place] [address] 18 Jul, 2013 [facility] [place] [facility] [id number] [place] [address] 18 Jul, 2013 [facility] [place] [facility] [id number] [place] [address] 14 Jul, 2013 [facility] [place] [facility] [id number] [place] [address] 14 Jul, 2013 [facility] [place] [facility] [id number] [place] [address] 14 Jul, 2013 [facility] [place] [facility] [id number] [place] [address] 14 Jul, 2013 [facility] [place] [facility] [id number] [place] [address] Jul, [facility] [place] [facility] [id number] [place] [address] Jul, [facility] [place] [facility] [id number] [place] [address] 06 Jul, 2013 [facility] [place] [facility] [id number] [place] [address] 06 Jul, 2013 [facility] [place] [facility] [id number] [place] [address] Jul, [facility] [place] [facility] [id number] [place] [address] 05 Jul, 2013 [facility] [place] [facility] [id number] [place] [address] Jun, 2012 [facility] [place] [facility] [address] [id number] [place] [address] 23 Jun, 2012 [facility] [place] [facility] [address] [facility] [id number] [facility] [place] [address] 15 Jun, 2012 [facility] [place] [facility] [id number] [place] [address] 15 Jun, 2012 [facility] [place] [facility] [id number] [place] [address] 14 Jun, 2012 [facility] [place] [facility] [address] [facility] [id number] [place] [address] 24 Sep, 2012 [facility] [place] [facility] [id number] [place] [address] 20 Sep, 2012 [facility] [place] [facility] [id number] [place] [address] 20 Sep, 2012 [facility] [place] [facility] [id number] [place] [address] 20 Sep, 2012 [facility] [place] [facility] [id number] [place] [address] 19 Sep, 2012 [facility] [place] [facility] [id number] [place] [address] 13 Sep, 2012 [facility] [place] [facility] [id number] [place] [address] 12 Sep, 2012 [facility] [place] [facility] [id number] [place] [address] 12 Sep, 2012 [facility] [place] [facility] [id number] [place] [address] 11 Sep, 2012 [facility] [place] [facility] [id number] [place] [address] 11 Sep, 2012 [facility] [place] [facility] [id number] [place] [address] 11 Sep, 2012 [facility] [place] [facility] [id number] [place] [address] 09 Sep, 2012 [facility] [place] [facility] [id number] [facility] [place] [address] 05 May, 2012 [facility] [place] [facility] [address] [id number] [facility] [place] [address] May, [facility] [place] [facility] [address] [id number] [facility] [place] [address] May, [facility] [place] [facility] [id number] [place] [address] Apr, [facility] [place] [facility] [id number] [facility] [place] [address] Apr, [facility] [place] [facility] [address] [id number] [facility] [place] [address] Apr, [facility] [place] [facility] [id number] [place] [address] Apr, [facility] [place] [facility] [id number] [place] [address] Apr, [facility] [place] [facility] [id number] [place] [address] Apr, [facility] [place] [facility] [id number] [place] [address] Apr, [facility] [place] [facility] [id number] [place] [address] Apr, [facility] [place] [facility] [id number] [place] [address] Apr, [facility] [place] [facility] [id number] [place] [address] Mar, [facility] [place] [facility] [address] [id number] [place] [address] Mar, [facility] [place] [facility] [address] [id number] [place] [address] Mar, [facility] [place] [facility] [id number] [place] [address] Mar, [facility] [place] [facility] [id number] [place] [address] Mar, [facility] [place] [facility] [address] [id number] [place] [address] Mar, [facility] [place] [facility] [id number] [place] [address] Mar, [facility] [place] [facility] [id number] [place] [address] Mar, [facility] [place] [facility] [id number] [place] [address] Mar, [facility] [place] [facility] [id number] [place] [address] Mar, [facility] [place] [facility] [id number] [place] [address] Mar, [facility] [place] [facility] [id number] [place] [address] Feb, [facility] [place] [facility] [id number] [place] [address] Feb, [facility] [place] [facility] [id number] [place] [address] Feb, [facility] [place] [facility] [id number] [place] [address] Feb, [facility] [place] [facility] [id number] [place] [address] Feb, [facility] [place] [facility] [id number] [place] [address] Feb, [facility] [place] [facility] [id number] [place] [address] Feb, [facility] [place] [facility] [id number] [place] [address] Feb, [facility] [place] [facility] [id number] [place] [address] Feb, [facility] [place] [facility] [id number] [place] [address] January, [facility] [place] [facility] [id number] [place] [address] January, [facility] [address] [id number] [facility] [place] [address] January, [facility] [place] [facility] [address] [id number] [facility] [place] [address] January, [facility] [place] [facility] [id number] [facility] [place] [address] January, [facility] [place] [facility] [address] [id number] [place] [address] January, [facility] [place] [facility] [address] [id number] [place] [address] January, [facility] [place] [facility] [address] [id number] [facility] [place] [address] January, [facility] [place] [facility] [id number] [place] [address] January, [facility] [place] [facility] [id number] [facility] [place] [address] January, [facility] [place] [facility] [id number] [facility] [place] [address] January, [facility] [place] [facility] [id number] [facility] [place] [address] January, [facility] [place] [facility] [id number] [place] [address] January, [facility] [place] [facility] [id number] [place] [address] January, [facility] [place] [facility] [id number] [facility] [place] [address] January, [facility] [place] [facility] [address] [id number] [place] [address] January, [facility] [place] [facility] [id number] [place] [address] January, [facility] [place] [facility] [id number] [place] [address] January, [facility] [place] [facility] [id number] [place] [address] January, [facility] [id number] [facility] [place] [address] January, [facility] [place] [facility] [id number] [place] [address] January, [facility] [place] [facility] [id number] [place] [address] January, [facility] [place] [facility] [id number] [place] [address] January, [facility] [place] [facility] [id number] [facility] [place] [address] Dec, [facility] [place] [facility] [id number] [place] [address] Dec, [facility] [place] [facility] [id number] [place] [address] Dec, [facility] [place] [facility] [id number] [place] [address] Dec, [facility] [place] [facility] [id number] [place] [address] Dec, [facility] [place] [facility] [id number] [place] [address] Nov, [facility] [place] [facility] [id number] [place] [address] Oct, [facility] [place] [facility] [id number] [place] [address] Oct, [facility] [place] [facility] [id number] [place] [address] Oct, [facility] [place] [facility] [id number] [place] [address] Oct, [facility] [place] [facility] [id number] [place] [address] Oct, [facility] [place] [facility] [id number] [place] [address] Sep, [facility] [place] [facility] [id number] [place] [address] Sep, [facility] [place] [facility] [id number] [place] [address] Sep, [facility] [place] [facility] [id number] [place] [address] Aug, [facility] [place] [facility] [id number] [place] [address] Aug, [facility] [place] [facility] [id number] [place] [address] Aug, [facility] [place] [facility] [id number] [place] [address] Aug, [facility] [place] [facility] [id number] [place] [address] Jul, [facility] [place] [facility] [id number] [place] [address] Jul, [facility] [place] [facility] [id number] [place] [address] Jul, [facility] [place] [facility] [id number] [place] [address] Jul, [facility] [place] [facility] [id number] [place] [address] Jul, [facility] [place] [facility] [id number] [place] [address] Jul, [facility] [place] [facility] [id number] [place] [address] Jun, [facility] [place] [facility] [id number] [place] [address] Jun, [facility] [place] [facility] [id number] [place] [address] Jun, [facility] [place] [facility] [id number] [place] [address] Jun, [facility] [place] [facility] [id number] [place] [address] Jun, [facility] [place] [facility] [id number] [place] [address] Jun, [facility] [place] [facility] [id number] [place] [address] Jun, [facility] [place] [facility] [id number] [place] [address] Jun, [facility] [place] [facility] [id number] [place] [address] Jun, [facility] [place] [facility] [id number] [place] [address] Jun, [facility] [place] [facility] [id number] [place] [address] May, 2011 [facility] [place] [facility] [id number] [place] [address] May, [facility] [place] [facility] [id number] [place] [address] May, [facility] [place] [facility] [id number] [place] [address] Apr, [facility] [place] [facility] [id number] [place] [address] Apr, [facility] [place] [facility] [id number] [place] [address] Apr, [facility] [place] [facility] [id number] [place] [address] Apr, [facility] [place] [facility] [id number] [place] [address] Apr, [facility] [place] [facility] [id number] [place] [address] Apr, [facility] [place] [facility] [id number] [place] [address] Apr, [facility] [place] [facility] [id number] [place] [address] Apr, [facility] [place] [facility] [id number] [place] [address] Apr, [facility] [place] [facility] [address] [id number] [place] [address] Mar, [facility] [place] [facility] [id number] [place] [address] Mar, [facility] [place] [facility] [id number] [place] [address] Mar, [facility] [place] [facility] [id number] [place] [address] Mar, [facility] [place] [facility] [id number] [place] [address] Feb, [facility] [place] [facility] [id number] [place] [address] Feb, [facility] [place] [facility] [id number] [place] [address] Feb, [facility] [place] [facility] [id number] [place] [address] January, [facility] [place] [facility] [id number] [place] [address] January, [facility] [place] [facility] [id number] [place] [address] January, [facility] [place] [facility] [id number] [place] [address] January, [facility] [place] [facility] [id number] [place] [address] January, [facility] [place] [facility] [id number] [place] [address] Dec, [facility] [place] [facility] [address] [id number] [place] [address] Dec, [facility] [place] [facility] [id number] [place] [address] Dec, [facility] [place] [facility] [id number] [place] [address] Oct, [facility] [id number] [place] [address] Oct, [facility] [place] [facility] [id number] [place] [address] Oct, [facility] [place] [facility] [id number] [place] [address] Sep, [facility] [place] [facility] [id number] [place] [address] Sep, [facility] [place] [facility] [id number] [place] [address] Aug, [facility] [place] [facility] [id number] [place] [address] Jul, [facility] [place] [facility] [id number] [place] [address] Jul, [facility] [place] [facility] [id number] [place] [address] Mar, [facility] [place] [facility] [id number] [place] [address] Aug, [facility] [place] [facility] [id number] [place] [address] Jul, [facility] [place] [facility] [id number] [place] [address] Jul, [facility] [place] [facility] [id number] [place] [address] Jul, [facility] [place] [facility] [id number] [place] [address] Jul, [facility] [place] [facility] [id number] [place] [address] Jun, [facility] [place] [facility] [id number] [place] [address] Jun, [facility] [place] [facility] [id number] [place] [address] Apr, [facility] [place] [facility] [id number] [place] [address] Aug, [facility] [id number] [place] [address] Jul, [facility] [id number] [place] [address] Jul, [facility] [id number] [place] [address] Jul, [facility] [id number] [place] [address] Jun, [facility] [id number] [place] [address] 10 May, 2009 [facility] [id number] [place] [address] 14 Dec, 2008 [facility] [id number] [place] [address] Nov, [facility] [id number] [place] [address] 10 Oct, 2008 [facility] [id number] [place] [address] Aug, [facility] [id number] [place] [address] Aug, [facility] [id number] [place] [address] Jun, IMMUNIZATIONS No Known Immunizations SOCIAL HISTORY [...] 3 day s 04/[address] [facility] [place]- Right wrist injury 03/29/2018
--- OUTSIDE RECORDS SUMMARY | 2020-04-09 00:25 | XMS REPORT ---
Author Author Kateryna Turner Doctor Organization [facility] Address Unknown Phone Unavailable Care Team Providers Care Certifed Refrigeration Operator Name Role Phone Migration, Doctor Unavailable Unavailable PROBLEMS Type Condition ICD9-CM Code EWC23-CZ Code Onset Dates Condition S tatus SNOMED Code Problem Irregular menses N92.6 Active 801 14285 Problem Migraine with aura and without status migrainosu s, not intractable G43.109 Active 5683465 Problem Uncontrolled type 2 diabetes mellitus with hyperglycemia E11.65 Active 903995511 Problem Morbid obesity due to excess calories E66.01 Active 198255271 Problem RLS (restless legs syndrome) G25.81 A ctive 76221071 Problem Morbid obesity E66.01 Active 74639 6002 ALLERGIES No Information ENCOUNTERS Encounter Location Date Diagnosis [place] [address] [address] 15 Oct, 2019 [facility]ALK IN [facility] [address] [facility] [id number] [address] [place] [address] 09 Oct, [address] [facility] [address] [address] 16 Sep, 2019 [facility] [address] [address] 14 Sep, 2019 [facility] [address] [address] 14 Sep, [facility] [address] [address] 13 Sep, 2019 [place] [address] [address] 10 Sep, 2019 Pneumonia of left lower lobe due to infe ctious organism J18.9 and Migraine with aura and without status migrainosus, not intractable G43.109 [facility] [address] [address] Sep, [facility] [address] [address] Sep, [facility] [address] [address] Sep, [facility] [address] [address] Sep, [place] [address] [address] Sep, Pneumonia of left lower lobe due to infe ctious organism J18.9 and Migraine with aura and without status migrainosus, not intractable G43.109 [place] [address] [address] Aug, Irregular menses N92.6 ; Well woman exam Z01.419 ; Pelvic cramping R10.2 and Left breast lump N63.20 [place] [address] [address] Aug, [place] [address] [address] Aug, Well woman exam Z01.419 ; Left breast nenita mp N63.20 ; Irregular menses N92.6 ; Encounter for immunization Z23 ; Pelvic cramping R10.2 and Screening for cervical cancer Z12.4 [place] [address] [address] Aug, [place] [address] [address] Aug, [place] [address] [address] Aug, [place] [address] [address] Jul, [place] [address] [address] Jun, [place] [address] [address] Jun, [facility] [address] [address] Jun, [place] [address] [address] Jun, BMI 50.0-59.9, adult Z68.43 [place] [address] [address] Jun, [facility] [address] [facility] [id number] [address] [place] [address] May, Acute non-recurrent sinusiti s, unspecified location J01.90 ; Diarrhea, unspecified R19.7 ; Vomiting, unspecified R11.10 and Morbid obesity E66.01 [place] [address] [address] Apr, [place] [address] [address] Apr, Anemia due to other cause, not classifie d D64.89 and D-dimer, elevated R79.89 [place] [address] [address] Apr, [place] [address] [address] Apr, [place] [address] [address] Mar, Anemia due to other cause, not classifie d D64.89 and D-dimer, elevated R79.89 [place] [address] [address] Mar, Leg edema, right R60.0 ; High risk medic ation use Z79.899 and Morbid obesity E66.01 [place] [address] [address] Mar, BMI 50.0-59.9, adult Z68.43 [place] [address] [place] [id number] [place] [address] Mar, [facility] [address] [address] January, Uncontrolled type 2 diabetes mellitus wi hyperglycemia E11.65 ; RLS (restless legs syndrome) G25.81 and Morbid obesity E66.01 [facility] [address] [address] Oct, Lipoma of right lower extremity D17.23 [facility] [address] [address] Oct, Lipoma of right lower extremity D17.23 [place] [address] [address] Sep, [place] [address] [address] Sep, [place] [address] [address] Sep, [facility] [address] [address] Sep, [place] [address] [address] Sep, [facility] [address] [address] Aug, Uncontrolled type 2 diabetes mellitus wi hyperglycemia E11.65 ; Morbid obesity due to excess calories E66.01 ; Lipoma of torso D17.1 and BMI 50.0-59.9, adult Z68.43 [place] [address] [address] Jun, Encounter for immunization Z23 [place] [address] [address] Jul, [place] [address] [address] Jun, Encounter for immunization Z23 [place] [address] [place] [id number] [place] [address] 30 May, 2016 [facility] [address] [id number] [place] [address] 16 Jun, 2015 Encounter for immunization Z23 [facility] [address] [id number] [place] [id number] 29 May, 2015 [facility] [address] [place] [id number] [place] [address] May, [facility] [address] [place] [id number] [place] [address] Apr, [facility] [address] [place] [id number] [place] [address] Feb, [facility] [address] [place] [id number] [place] [address] Feb, [facility] [address] [place] [id number] [place] [address] Feb, [facility] [address] [place] [id number] [place] [id number] January, [facility] [address] [place] [id number] [place] [address] January, [facility] [address] [place] [id number] [place] [address] Dec, [facility] [address] [place] [id number] [place] [address] Dec, [facility] [address] [place] [id number] [place] [address] Nov, [facility] [address] [id number] [place] [address] Nov, [facility] [address] [place] [id number] [place] [address] Nov, [facility] [address] [place] [id number] [place] [address] Nov, [facility] [address] [place] [id number] [place] [address] Nov, [facility] [address] [facility] [id number] [place] [id number] Nov, [facility] [address] [facility] [id number] [place] [address] Nov, [facility] [address] [facility] [id number] [place] [address] Oct, [facility] [address] [id number] [place] [address] Oct, [facility] [address] [facility] [id number] [place] [address] Oct, [facility] [address] [id number] [place] [address] Oct, [facility] [address] [id number] [place] [address] Oct, [facility] [address] [id number] [place] [address] Sep, [facility] [address] [id number] [place] [address] Sep, [facility] [address] [id number] [place] [address] Sep, [facility] [address] [id number] [place] [address] Sep, [facility] [address] [id number] [place] [address] Sep, [facility] [address] [id number] [place] [address] Sep, [facility] [address] [id number] [place] [address] Sep, [facility] [address] [id number] [place] [address] Sep, [facility] [address] [id number] [place] [address] Sep, [facility] [address] [id number] [place] [address] Sep, [facility] [address] [id number] [place] [address] Aug, [facility] [address] [id number] [place] [address] Aug, [facility] [address] [id number] [place] [address] Aug, [facility] [address] [id number] [place] [address] Aug, [facility] [address] [id number] [place] [address] Aug, [facility] [address] [id number] [place] [address] Aug, [facility] [address] [id number] [place] [address] Aug, [facility] [address] [id number] [place] [address] Aug, [facility] [address] [id number] [place] [address] Aug, [facility] [address] [id number] [place] [address] Aug, [facility] [address] [id number] [place] [address] Aug, [facility] [address] [id number] [place] [address] Aug, [facility] [address] [id number] [place] [id number] 18 Aug, 2014 [facility] [address] [id number] [place] [id number] 18 Aug, 2014 [facility] [address] [id number] [place] [id number] 17 Aug, 2014 [facility] [address] [id number] [place] [address] 17 Aug, 2014 [facility] [address] [id number] [place] [id number] 16 Aug, 2014 [facility] [address] [id number] [place] [address] Aug, [facility] [address] [id number] [place] [address] Aug, [facility] [address] [id number] [place] [address] Aug, [facility] [address] [id number] [place] [address] Aug, [facility] [address] [id number] [place] [address] Aug, [facility] [address] [id number] [place] [address] Aug, [facility] [address] [id number] [place] [address] Aug, [facility] [address] [id number] [place] [id number] Jul, [facility] [address] [id number] [place] [address] Jul, [facility] [address] [id number] [place] [address] Jun, [facility] [address] [id number] [place] [address] Jun, [facility] [address] [id number] [place] [address] Jun, [facility] [address] [id number] [place] [id number] 17 Jun, 2014 [facility] [address] [id number] [place] [id number] 15 Jun, 2014 [facility] [address] [id number] [place] [id number] 15 Jun, 2014 [facility] [address] [id number] [place] [id number] 14 Jun, 2014 [facility] [address] [facility] [id number] [place] [address] 14 Jun, 2014 [facility] [address] [facility] [id number] [place] [address] Jun, [facility] [address] [id number] [place] [address] Jun, [facility] [address] [id number] [place] [address] Jun, [facility] [address] [facility] [id number] [place] [id number] Jun, [facility] [address] [id number] [place] [address] Jun, [facility] [address] [id number] [place] [address] Jun, [facility] [address] [id number] [place] [address] May, 2013 [facility] [address] [id number] [place] [id number] May, 2013 [facility] [address] [id number] [place] [address] May, 2013 [facility] [address] [id number] [place] [address] May, 2013 [facility] [address] [id number] [place] [address] May, 2013 [facility] [address] [id number] [place] [address] May, 2013 [facility] [address] [id number] [place] [address] May, 2013 [facility] [address] [id number] [place] [address] May, 2013 [facility] [address] [id number] [place] [address] Apr, [facility] [address] [id number] [facility] [address] Apr, [facility] [address] [id number] [place] [address] Apr, [facility] [address] [facility] [id number] [place] [address] Apr, [facility] [address] [id number] [place] [address] Apr, [facility] [address] [facility] [id number] [place] [address] Apr, [facility] [address] [id number] [place] [address] Apr, [facility] [address] [id number] [place] [address] Apr, [facility] [address] [id number] [place] [address] Apr, [facility] [address] [id number] [place] [address] Mar, [facility] [address] [facility] [id number] [place] [address] Mar, [facility] [address] [id number] [place] [address] Mar, [facility] [address] [id number] [place] [address] Feb, [facility] [address] [facility] [id number] [place] [address] Feb, [facility] [address] [facility] [id number] [place] [address] Feb, [facility] [address] [id number] [place] [address] Feb, [facility] [address] [id number] [place] [address] Feb, [facility] [address] [id number] [place] [address] Feb, [facility] [address] [facility] [id number] [place] [address] Feb, [facility] [address] [facility] [id number] [place] [address] Feb, [facility] [address] [id number] [place] [address] Feb, [facility] [address] [id number] [place] [address] Feb, [facility] [address] [facility] [id number] [place] [address] Feb, [facility] [address] [id number] [place] [address] Feb, [facility] [address] [id number] [place] [address] Feb, [facility] [address] [id number] [place] [address] Feb, [facility] [address] [id number] [place] [address] Feb, [facility] [address] [id number] [place] [address] Feb, [facility] [address] [id number] [place] [address] January, [facility] [address] [id number] [place] [address] January, [facility] [address] [id number] [place] [address] January, [facility] [address] [id number] [place] [address] January, [facility] [address] [id number] [place] [address] January, [facility] [address] [id number] [place] [address] January, [facility] [address] [id number] [place] [address] January, [facility] [address] [facility] [id number] [place] [address] January, [facility] [address] [facility] [id number] [place] [address] January, [facility] [address] [id number] [place] [address] January, [facility] [address] [id number] [place] [address] January, [facility] [address] [facility] [id number] [place] [address] January, [facility] [address] [id number] [place] [address] January, [facility] [address] [id number] [place] [address] January, [facility] [address] [id number] [place] [address] January, [facility] [address] [facility] [id number] [place] [address] January, [facility] [address] [id number] [place] [address] January, [facility] [address] [id number] [place] [address] January, [facility] [address] [id number] [place] [address] January, [facility] [address] [facility] [id number] [place] [address] January, [facility] [address] [id number] [place] [address] January, [facility] [address] [id number] [place] [address] January, [facility] [address] [id number] [place] [address] January, [facility] [address] [id number] [place] [address] January, [facility] [address] [id number] [place] [address] January, [facility] [address] [id number] [place] [address] January, [facility] [address] [id number] [place] [address] Dec, [facility] [address] [id number] [place] [address] Dec, [facility] [address] [id number] [place] [address] Dec, [facility] [address] [id number] [place] [address] Dec, [facility] [address] [id number] [place] [address] Dec, [facility] [address] [id number] [place] [address] Dec, [facility] [address] [id number] [place] [id number] Dec, [facility] [address] [id number] [place] [address] Dec, [facility] [address] [id number] [place] [address] Dec, [facility] [address] [id number] [place] [address] Dec, [facility] [address] [id number] [place] [address] Dec, [facility] [address] [id number] [place] [id number] Dec, [facility] [address] [id number] [place] [id number] Dec, [facility] [address] [id number] [place] [id number] Dec, [facility] [address] [facility] [id number] [place] [id number] 12 Dec, 2013 [facility] [address] [id number] [place] [address] Dec, [facility] [address] [id number] [place] [address] Dec, [facility] [address] [id number] [place] [address] Dec, [facility] [address] [facility] [id number] [place] [address] Dec, [facility] [address] [id number] [place] [address] Dec, [facility] [address] [id number] [place] [address] Dec, [facility] [address] [id number] [place] [address] Dec, [facility] [address] [id number] [place] [address] Nov, [facility] [address] [id number] [place] [address] Nov, [facility] [address] [id number] [place] [address] Nov, [facility] [address] [id number] [place] [address] Nov, [facility] [address] [id number] [place] [address] Nov, [facility] [address] [id number] [place] [address] Nov, [facility] [address] [id number] [place] [address] Nov, [facility] [address] [id number] [place] [address] Nov, [facility] [address] [id number] [place] [address] 18 Nov, 2013 [facility] [address] [facility] [id number] [facility] [address] 18 Nov, 2013 [facility] [address] [id number] [facility] [address] 18 Nov, 2013 [facility] [address] [id number] [place] [address] 18 Nov, 2013 [facility] [address] [id number] [facility] [address] 14 Nov, 2013 [facility] [address] [id number] [facility] [address] 14 Nov, 2013 [facility] [address] [id number] [place] [address] Nov, [facility] [address] [id number] [place] [address] Nov, [facility] [address] [id number] [place] [address] Oct, [facility] [address] [id number] [place] [address] Oct, [facility] [address] [id number] [place] [address] Oct, [facility] [address] [id number] [place] [address] Oct, [facility] [address] [id number] [place] [address] Oct, [facility] [address] [id number] [place] [address] Oct, [facility] [address] [id number] [place] [address] Oct, [facility] [address] [id number] [place] [address] Oct, [facility] [address] [id number] [place] [address] Oct, [facility] [address] [id number] [place] [address] Oct, [facility] [address] [id number] [place] [address] Oct, [facility] [address] [facility] [id number] [place] [address] Oct, [facility] [address] [id number] [facility] [address] Oct, [facility] [address] [facility] [id number] [place] [address] Oct, [facility] [address] [id number] [place] [address] Oct, [facility] [address] [id number] [place] [address] Sep, [facility] [address] [id number] [place] [address] Sep, [facility] [address] [id number] [place] [id number] Sep, [facility] [address] [id number] [place] [address] Sep, [facility] [address] [id number] [place] [address] Sep, [facility] [address] [id number] [place] [address] Sep, [facility] [address] [id number] [place] [address] Sep, [facility] [address] [id number] [place] [address] Sep, [facility] [address] [id number] [place] [address] Sep, [facility] [facility] [address] [id number] [place] [address] Sep, [facility] [address] [id number] [place] [address] Sep, [facility] [address] [id number] [place] [address] Sep, [facility] [address] [id number] [place] [address] Sep, [facility] [address] [id number] [place] [address] Aug, [facility] [address] [id number] [place] [address] Aug, [facility] [address] [id number] [place] [address] Aug, [facility] [address] [id number] [place] [address] Aug, [facility] [address] [id number] [place] [address] Aug, [facility] [address] [id number] [place] [address] Aug, [facility] [address] [id number] [place] [address] 16 Aug, 2013 [facility] [address] [id number] [place] [address] Aug, [facility] [address] [id number] [place] [address] Aug, [facility] [address] [id number] [place] [address] Aug, [facility] [address] [id number] [place] [address] Aug, [facility] [address] [id number] [place] [address] Aug, [facility] [address] [id number] [place] [address] Aug, [facility] [address] [id number] [place] [address] Aug, [facility] [address] [id number] [place] [address] 19 Jul, 2012 [facility] [address] [id number] [place] [address] 19 Jul, 2013 [facility] [address] [id number] [place] [id number] 18 Jul, 2013 [facility] [address] [id number] [place] [id number] 18 Jul, 2013 [facility] [address] [id number] [place] [address] 14 Jul, 2013 [facility] [address] [id number] [place] [address] 14 Jul, 2013 [facility] [address] [id number] [place] [address] 14 Jul, 2013 [facility] [address] [id number] [place] [address] 14 Jul, 2013 [facility] [address] [id number] [place] [id number] 07 Jul, 2013 [facility] [address] [id number] [place] [address] 07 Jul, 2013 [facility] [address] [id number] [place] [address] 06 Jul, 2013 [facility] [address] [id number] [place] [address] 06 Jul, 2013 [facility] [address] [id number] [place] [address] 05 Jul, 2013 [facility] [address] [id number] [place] [address] 05 Jul, 2013 [facility] [id number] [place] [address] Jun, [facility] [address] [id number] [place] [address] Jun, [facility] [address] [id number] [place] [address] 15 Jun, 2012 [facility] [address] [id number] [place] [address] 15 Jun, 2012 [facility] [address] [facility] [id number] [place] [address] 14 Jun, 2012 [facility] [address] [id number] [place] [address] 24 Sep, 2012 [facility] [address] [id number] [place] [address] 20 Sep, 2012 [facility] [address] [facility] [id number] [place] [address] 20 Sep, 2012 [facility] [address] [id number] [place] [address] 20 Sep, 2012 [facility] [address] [id number] [place] [address] 19 Sep, 2012 [facility] [address] [id number] [place] [id number] 13 Sep, 2012 [facility] [address] [id number] [place] [address] 12 Sep, 2012 [facility] [address] [id number] [place] [address] 12 Sep, 2012 [facility] [address] [id number] [place] [address] 11 Sep, 2012 [facility] [address] [id number] [place] [address] 11 Sep, 2012 [facility] [address] [id number] [place] [address] 11 Sep, 2012 [facility] [address] [id number] [place] [address] 09 Sep, 2012 [facility] [address] [id number] [place] [address] 05 Sep, 2012 [facility] [address] [id number] [place] [address] 04 Sep, 2012 [facility] [address] [id number] [place] [address] May, [facility] [address] [id number] [facility] [address] Apr, [facility] [address] [facility] [id number] [place] [address] Apr, [facility] [address] [id number] [place] [address] Apr, [facility] [address] [facility] [id number] [facility] [address] Apr, [facility] [address] [id number] [facility] [address] Apr, [facility] [address] [id number] [place] [address] Apr, [facility] [address] [id number] [place] [address] Apr, [facility] [address] [id number] [place] [address] Apr, [facility] [address] [id number] [place] [address] Apr, [facility] [address] [id number] [place] [address] Mar, [facility] [address] [id number] [place] [address] Mar, [facility] [address] [id number] [place] [address] Mar, [facility] [address] [id number] [place] [address] Mar, [facility] [address] [id number] [place] [address] Mar, [facility] [address] [id number] [place] [address] Mar, [facility] [address] [id number] [place] [address] Mar, [facility] [address] [id number] [place] [address] Mar, [facility] [address] [id number] [place] [address] Mar, [facility] [address] [id number] [place] [address] Mar, [facility] [address] [id number] [place] [address] Mar, [facility] [address] [id number] [place] [address] Feb, [facility] [address] [id number] [place] [address] Feb, [facility] [address] [id number] [place] [address] Feb, [facility] [address] [id number] [place] [address] Feb, [facility] [address] [id number] [place] [address] Feb, [facility] [address] [id number] [place] [address] Feb, [facility] [address] [id number] [place] [address] Feb, [facility] [address] [id number] [place] [address] Feb, [facility] [address] [id number] [place] [address] Feb, [facility] [address] [id number] [place] [address] January, [facility] [address] [id number] [place] [address] January, [facility] [address] [id number] [place] [address] January, [facility] [address] [id number] [place] [address] January, [facility] [address] [id number] [facility] [address] January, [facility] [address] [id number] [facility] [address] January, [facility] [address] [id number] [facility] [address] January, [facility] [address] [id number] [facility] [address] January, [facility] [address] [id number] [place] [address] January, [facility] [address] [id number] [place] [address] January, [facility] [address] [id number] [place] [address] January, [facility] [address] [id number] [place] [address] January, [facility] [address] [id number] [place] [address] January, [facility] [address] [id number] [place] [address] January, [facility] [address] [id number] [place] [address] January, [facility] [address] [id number] [place] [address] January, [facility] [address] [id number] [facility] [address] January, [facility] [address] [id number] [place] [address] January, [facility] [address] [id number] [place] [address] January, [facility] [address] [id number] [place] [address] January, [facility] [address] [id number] [place] [address] January, [facility] [address] [id number] [place] [address] January, [facility] [address] [id number] [place] [address] January, [facility] [address] [id number] [place] [address] Dec, [facility] [address] [id number] [place] [address] Dec, [facility] [address] [id number] [place] [address] Dec, [facility] [address] [id number] [place] [address] Dec, [facility] [address] [id number] [place] [address] Dec, [facility] [address] [id number] [place] [address] Nov, [facility] [address] [id number] [place] [address] Oct, [facility] [address] [id number] [place] [address] Oct, [facility] [address] [id number] [place] [address] Oct, [facility] [address] [id number] [place] [address] Oct, [facility] [address] [id number] [place] [address] Oct, [facility] [address] [id number] [place] [address] Sep, [facility] [address] [id number] [place] [address] Sep, [facility] [address] [id number] [place] [address] Sep, [facility] [address] [id number] [place] [address] Aug, [facility] [address] [id number] [place] [address] Aug, [facility] [address] [id number] [place] [address] Aug, [facility] [address] [id number] [place] [address] Aug, [facility] [address] [id number] [place] [address] Jul, [facility] [id number] [place] [address] Jul, [facility] [id number] [place] [address] Jul, [facility] [id number] [place] [address] Jul, [facility] [address] [id number] [place] [address] Jul, [facility] [id number] [place] [address] Jul, [facility] [address] [id number] [place] [address] Jun, [facility] [address] [id number] [place] [address] Jun, [facility] [address] [id number] [place] [address] Jun, [facility] [address] [id number] [place] [address] Jun, [facility] [address] [id number] [place] [address] Jun, [facility] [address] [id number] [place] [address] Jun, [facility] [address] [id number] [place] [address] Jun, [facility] [address] [id number] [place] [address] Jun, [facility] [address] [id number] [place] [address] Jun, [facility] [address] [id number] [place] [address] Jun, [facility] [address] [id number] [place] [address] May, [facility] [address] [id number] [place] [address] May, [facility] [address] [id number] [place] [address] May, [facility] [address] [id number] [place] [address] Apr, [facility] [address] [id number] [place] [address] Apr, [facility] [address] [id number] [place] [address] Apr, [facility] [address] [id number] [place] [address] Apr, [facility] [address] [id number] [place] [address] Apr, [facility] [address] [id number] [place] [address] Apr, [facility] [address] [id number] [place] [address] Apr, [facility] [address] [id number] [place] [address] Apr, [facility] [address] [id number] [place] [address] Apr, [facility] [address] [id number] [place] [address] Mar, [facility] [address] [id number] [place] [address] Mar, [facility] [address] [id number] [place] [address] Mar, [facility] [address] [id number] [place] [address] Mar, [facility] [address] [id number] [place] [address] Feb, [facility] [address] [id number] [place] [address] Feb, [facility] [address] [id number] [place] [address] Feb, [facility] [address] [id number] [place] [address] January, [facility] [address] [id number] [place] [address] January, [facility] [address] [id number] [place] [address] January, [facility] [address] [id number] [place] [address] January, [facility] [address] [id number] [place] [address] January, [facility] [address] [id number] [place] [address] Dec, [facility] [address] [id number] [place] [address] Dec, [facility] [address] [id number] [place] [address] 16 Dec, 2011 [facility] [address] [id number] [place] [id number] 28 Oct, 2011 [facility] [address] [id number] [place] [address] 24 Oct, 2011 [facility] [address] [id number] [place] [address] Oct, [facility] [address] [id number] [place] [address] Sep, [facility] [address] [id number] [place] [address] Sep, [facility] [address] [id number] [place] [address] Aug, [facility] [address] [id number] [place] [address] Jul, [facility] [address] [id number] [place] [address] Jul, [facility] [address] [id number] [place] [address] Mar, [facility] [address] [id number] [place] [address] Aug, [facility] [id number] [place] [address] Jul, [facility] [address] [id number] [place] [id number] Jul, [facility] [address] [id number] [place] [address] Jul, [facility] [address] [id number] [place] [id number] Jul, [facility] [address] [id number] [place] [address] Jun, [facility] [address] [id number] [place] [id number] Jun, [facility] [address] [id number] [place] [address] Apr, [facility] [address] [id number] [place] [id number] Aug, [facility] [address] [id number] [place] [address] Jul, [facility] [address] [id number] [place] [address] 17 Jul, [address] [facility] [address] [id number] [place] [address] Jul, [facility] [address] [id number] [place] [address] 23 Jun, [address] [facility] [id number] [place] [address] 10 May, [facility] [id number] [place] [address] 14 Dec, [facility] [address] [id number] [place] [address] Nov, [facility] [id number] [place] [address] 10 Oct, [facility] [id number] [place] [address] Aug, [facility] [id number] [place] [address] Aug, [facility] [address] [id number] [place] [address] 28 Jun, 2008 IMMUNIZATIONS No Known Immunizations [...] x 3 day s 04/2012 Hospitalization History [facility] [place]- Right wrist injury 03/29/2018
--- OUTSIDE RECORDS SUMMARY | 2020-04-09 00:25 | XMS REPORT ---
Author Author Kateryna Turner Doctor Organization [facility] Address Unknown Phone Unavailable Care Team Providers Care Supervisor Grading Name Role Phone Migration, Doctor Unavailable Unavailable PROBLEMS Type Condition ICD9-CM Code [id number] Code Onset Dates Condition S tatus SNOMED Code Problem Irregular menses N92.6 Active 801 13738 Problem Migraine with aura and without status migrainosu s, not intractable G43.109 Active 4691809 Problem Uncontrolled type 2 diabetes mellitus with hyperglycemia E11.65 Active 044447238 Problem Morbid obesity due to excess calories E66.01 Active 597204241 Problem RLS (restless legs syndrome) G25.81 A ctive 90125930 Problem Morbid obesity E66.01 Active 20066 6002 ALLERGIES No Information ENCOUNTERS Encounter Location Date Diagnosis [place] [address] [address] 15 Oct, 2019 [facility] [address] [facility] [id number] [place] [address] 09 Oct, 2019 Influenza J11.1 [facility] [address] [address] 16 Sep, 2019 [facility] [address] [address] 14 Sep, 2019 [facility] [address] [address] 14 Sep, 2019 [facility] [address] [address] 13 Sep, 2019 [place] [address] [address] 10 Sep, 2019 Pneumonia of left lower lobe due to infe ctious organism J18.9 and Migraine with aura and without status migrainosus, not intractable G43.109 [facility] [address] [address] Sep, [facility] [address] [address] Sep, [facility] [address] [address] Sep, [facility] [address] [address] Sep, [place] [address] [address] Sep, Pneumonia of left lower lobe due to infe ctious organism J18.9 and Migraine with aura and without status migrainosus, not intractable G43.109 [place] [address] [address] Aug, Irregular menses N92.6 ; Well woman exam Z01.419 ; Pelvic cramping R10.2 and Left breast lump N63.20 [place] [address] [address] Aug, [place] [address] [address] Aug, Well woman exam Z01.419 ; Left breast nenita mp N63.20 ; Irregular menses N92.6 ; Encounter for immunization Z23 ; Pelvic cramping R10.2 and Screening for cervical cancer Z12.4 [place] [address] [address] Aug, [place] [address] [address] Aug, [place] [address] [address] Aug, [place] [address] [address] Jul, [place] [address] [address] Jun, [place] [address] [address] Jun, [facility] [address] [address] Jun, [place] [address] [address] Jun, BMI 50.0-59.9, adult Z68.43 [place] [address] [address] Jun, [facility] [address] [facility] [id number] [address] [place] [address] May, Acute non-recurrent sinusiti s, unspecified location J01.90 ; Diarrhea, unspecified R19.7 ; Vomiting, unspecified R11.10 and Morbid obesity E66.01 [place] [address] [address] Apr, [place] [address] [address] Apr, Anemia due to other cause, not classifie d D64.89 and D-dimer, elevated R79.89 [place] [address] [address] Apr, [place] [address] [address] Apr, [place] [address] [address] Mar, Anemia due to other cause, not classifie d D64.89 and D-dimer, elevated R79.89 [place] [address] [address] Mar, Leg edema, right R60.0 ; High risk medic ation use Z79.899 and Morbid obesity E66.01 [place] [address] [address] Mar, BMI 50.0-59.9, adult Z68.43 [place] [address] [place] [id number] [place] [address] Mar, [facility] [address] [address] January, Uncontrolled type 2 diabetes mellitus wi hyperglycemia E11.65 ; RLS (restless legs syndrome) G25.81 and Morbid obesity E66.01 [facility] [address] [address] Oct, Lipoma of right lower extremity D17.23 [facility] [address] [address] Oct, Lipoma of right lower extremity D17.23 [place] [address] [address] Sep, [place] [address] [address] Sep, [place] [address] [address] Sep, [facility] [address] [address] Sep, [place] [address] [address] Sep, [facility] [address] [address] Aug, Uncontrolled type 2 diabetes mellitus wi hyperglycemia E11.65 ; Morbid obesity due to excess calories E66.01 ; Lipoma of torso D17.1 and BMI 50.0-59.9, adult Z68.43 [place] [address] [address] Jun, Encounter for immunization Z23 [place] [address] [address] Jul, [place] [address] [address] Jun, Encounter for immunization Z23 [place] [address] [place] [id number] [place] [address] 30 May, 2016 [facility] [address] [id number] [place] [address] 16 Jun, 2015 Encounter for immunization Z23 [facility] [address] [id number] [place] [address] 29 May, 2015 [facility] [address] [place] [id number] [place] [address] May, [facility] [address] [place] [id number] [place] [address] Apr, [facility] [address] [place] [id number] [place] [address] Feb, [facility] [address] [place] [id number] [place] [address] Feb, [facility] [address] [place] [id number] [place] [address] Feb, [facility] [address] [place] [id number] [place] [address] January, [facility] [address] [place] [id number] [place] [address] January, [facility] [address] [place] [id number] [place] [address] Dec, [facility] [address] [place] [id number] [place] [address] Dec, [facility] [address] [place] [id number] [place] [address] Nov, [facility] [address] [id number] [place] [address] Nov, [facility] [address] [place] [id number] [place] [address] Nov, [facility] [address] [place] [id number] [place] [address] Nov, [facility] [address] [place] [id number] [place] [address] Nov, [facility] [address] [facility] [id number] [place] [address] Nov, [facility] [address] [facility] [address] [id number] [facility] [address] Nov, [facility] [address] [facility] [id number] [place] [address] Oct, [facility] [address] [id number] [facility] [address] Oct, [facility] [address] [facility] [address] [id number] [facility] [address] Oct, [facility] [address] [id number] [place] [address] Oct, [facility] [address] [id number] [place] [address] Oct, [facility] [address] [id number] [place] [address] Sep, [facility] [address] [id number] [place] [address] Sep, [facility] [address] [id number] [place] [address] Sep, [facility] [address] [id number] [place] [address] Sep, [facility] [address] [id number] [place] [address] Sep, [facility] [address] [id number] [place] [address] Sep, [facility] [address] [id number] [place] [address] Sep, [facility] [address] [id number] [place] [address] Sep, [facility] [address] [id number] [place] [address] Sep, [facility] [address] [id number] [place] [address] Sep, [facility] [address] [id number] [place] [address] Aug, [facility] [address] [id number] [place] [address] Aug, [facility] [address] [id number] [place] [address] Aug, [facility] [address] [id number] [place] [address] Aug, [facility] [address] [id number] [place] [address] Aug, [facility] [address] [id number] [place] [address] Aug, [facility] [address] [id number] [place] [address] Aug, [facility] [address] [id number] [place] [address] Aug, [facility] [address] [id number] [place] [address] Aug, [facility] [address] [id number] [place] [address] Aug, [facility] [address] [id number] [place] [address] Aug, [facility] [address] [id number] [place] [address] Aug, [facility] [address] [id number] [place] [address] 18 Aug, 2014 [facility] [address] [id number] [place] [address] 18 Aug, 2014 [facility] [address] [id number] [place] [address] 17 Aug, 2014 [facility] [address] [id number] [place] [address] 17 Aug, 2014 [facility] [address] [id number] [place] [address] 16 Aug, 2014 [facility] [address] [id number] [place] [address] Aug, [facility] [address] [id number] [place] [address] Aug, [facility] [address] [id number] [place] [address] Aug, [facility] [address] [id number] [place] [address] Aug, [facility] [address] [id number] [place] [address] Aug, [facility] [address] [id number] [place] [address] Aug, [facility] [address] [id number] [place] [address] Aug, [facility] [address] [id number] [place] [address] Jul, [facility] [address] [id number] [place] [address] Jul, [facility] [address] [id number] [place] [address] Jun, [facility] [address] [id number] [place] [address] Jun, [facility] [address] [id number] [place] [address] Jun, [facility] [address] [id number] [place] [address] 17 Jun, 2014 [facility] [address] [id number] [place] [address] 15 Jun, 2014 [facility] [address] [id number] [place] [address] 15 Jun, 2014 [facility] [address] [id number] [place] [address] 14 Jun, 2014 [facility] [address] [facility] [id number] [place] [address] 14 Jun, 2014 [facility] [address] [facility] [id number] [place] [address] Jun, [facility] [address] [id number] [place] [address] Jun, [facility] [address] [id number] [place] [address] Jun, [facility] [address] [facility] [address] [id number] [place] [address] Jun, [facility] [address] [id number] [place] [address] Jun, [facility] [address] [id number] [place] [address] Jun, [facility] [address] [id number] [place] [address] May, 2013 [facility] [address] [id number] [place] [address] May, 2013 [facility] [address] [id number] [place] [address] May, 2013 [facility] [address] [id number] [place] [address] May, 2013 [facility] [address] [id number] [place] [address] May, 2013 [facility] [address] [id number] [place] [address] May, 2013 [facility] [address] [id number] [place] [address] May, 2013 [facility] [address] [id number] [place] [address] May, 2013 [facility] [address] [id number] [place] [address] Apr, [facility] [address] [id number] [facility] [address] Apr, [facility] [address] [id number] [facility] [address] Apr, [facility] [address] [facility] [address] [id number] [facility] [address] Apr, [facility] [address] [id number] [place] [address] Apr, [facility] [address] [facility] [address] [id number] [facility] [address] Apr, [facility] [address] [id number] [facility] [address] Apr, [facility] [address] [id number] [place] [address] Apr, [facility] [address] [id number] [place] [address] Apr, [facility] [address] [id number] [place] [address] Mar, [facility] [address] [facility] [id number] [place] [address] Mar, [facility] [address] [id number] [place] [address] Mar, [facility] [address] [id number] [place] [address] Feb, [facility] [address] [facility] [address] [id number] [place] [address] Feb, [facility] [address] [facility] [address] [id number] [place] [address] Feb, [facility] [address] [id number] [place] [address] Feb, [facility] [address] [id number] [place] [address] Feb, [facility] [address] [id number] [place] [address] Feb, [facility] [address] [facility] [address] [id number] [place] [address] Feb, [facility] [address] [facility] [address] [id number] [place] [address] Feb, [facility] [address] [id number] [place] [address] Feb, [facility] [address] [id number] [place] [address] Feb, [facility] [address] [facility] [address] [id number] [place] [address] Feb, [facility] [address] [id number] [place] [address] Feb, [facility] [address] [id number] [place] [address] Feb, [facility] [address] [id number] [place] [address] Feb, [facility] [address] [id number] [place] [address] Feb, [facility] [address] [id number] [place] [address] Feb, [facility] [address] [id number] [place] [address] January, [facility] [address] [id number] [place] [address] January, [facility] [address] [id number] [place] [address] January, [facility] [address] [id number] [place] [address] January, [facility] [address] [id number] [place] [address] January, [facility] [address] [id number] [place] [address] January, [facility] [address] [id number] [place] [address] January, [facility] [address] [facility] [address] [id number] [place] [address] January, [facility] [address] [facility] [address] [id number] [place] [address] January, [facility] [address] [id number] [place] [address] January, [facility] [address] [id number] [place] [address] January, [facility] [address] [facility] [address] [id number] [facility] [address] January, [facility] [address] [id number] [place] [address] January, [facility] [address] [id number] [place] [address] January, [facility] [address] [id number] [place] [address] January, [facility] [address] [facility] [address] [id number] [place] [address] January, [facility] [address] [id number] [place] [address] January, [facility] [address] [id number] [place] [address] January, [facility] [address] [id number] [place] [address] January, [facility] [address] [facility] [address] [id number] [place] [address] January, [facility] [address] [id number] [place] [address] January, [facility] [address] [id number] [place] [address] January, [facility] [address] [id number] [place] [address] January, [facility] [address] [id number] [place] [address] January, [facility] [address] [id number] [place] [address] January, [facility] [address] [id number] [place] [address] January, [facility] [address] [id number] [place] [address] Dec, [facility] [address] [id number] [place] [address] Dec, [facility] [address] [id number] [place] [address] Dec, [facility] [address] [id number] [place] [address] Dec, [facility] [address] [id number] [place] [address] Dec, [facility] [address] [id number] [place] [address] Dec, [facility] [address] [id number] [place] [address] Dec, [facility] [address] [id number] [place] [address] Dec, [facility] [address] [id number] [place] [address] Dec, [facility] [address] [id number] [place] [address] Dec, [facility] [address] [id number] [place] [address] Dec, [facility] [address] [id number] [place] [address] Dec, [facility] [address] [id number] [place] [address] Dec, [facility] [address] [id number] [place] [address] Dec, [facility] [address] [facility] [address] [id number] [place] [address] 12 Dec, 2013 [facility] [address] [id number] [place] [address] Dec, [facility] [address] [id number] [place] [address] Dec, [facility] [address] [id number] [place] [address] Dec, [facility] [address] [facility] [address] [id number] [place] [address] Dec, [facility] [address] [id number] [place] [address] Dec, [facility] [address] [id number] [place] [address] Dec, [facility] [address] [id number] [place] [address] Dec, [facility] [address] [id number] [place] [address] Nov, [facility] [address] [id number] [place] [address] Nov, [facility] [address] [id number] [place] [address] Nov, [facility] [address] [id number] [place] [address] Nov, [facility] [address] [id number] [place] [address] Nov, [facility] [address] [id number] [place] [address] Nov, [facility] [address] [id number] [place] [address] Nov, [facility] [address] [id number] [place] [address] Nov, [facility] [address] [id number] [place] [address] 18 Nov, 2013 [facility] [address] [facility] [address] [id number] [facility] [address] 18 Nov, 2013 [facility] [address] [id number] [facility] [place] [address] 18 Nov, 2013 [facility] [address] [id number] [place] [address] 18 Nov, 2013 [facility] [address] [id number] [facility] [place] [address] 14 Nov, 2013 [facility] [address] [id number] [facility] [address] 14 Nov, 2013 [facility] [address] [id number] [place] [address] Nov, [facility] [address] [id number] [place] [address] Nov, [facility] [address] [id number] [place] [address] Oct, [facility] [address] [id number] [place] [address] Oct, [facility] [address] [id number] [place] [address] Oct, [facility] [address] [id number] [place] [address] Oct, [facility] [address] [id number] [place] [address] Oct, [facility] [address] [id number] [place] [address] Oct, [facility] [address] [id number] [place] [address] Oct, [facility] [address] [id number] [place] [address] Oct, [facility] [address] [id number] [place] [address] Oct, [facility] [address] [id number] [place] [address] Oct, [facility] [address] [id number] [place] [address] Oct, [facility] [address] [facility] [address] [id number] [place] [address] Oct, [facility] [address] [id number] [facility] [address] Oct, [facility] [address] [facility] [address] [id number] [facility] [address] Oct, [facility] [address] [id number] [place] [address] Oct, [facility] [address] [id number] [place] [address] Sep, [facility] [address] [id number] [place] [address] Sep, [facility] [address] [id number] [place] [address] Sep, [facility] [address] [id number] [place] [address] Sep, [facility] [address] [id number] [place] [address] Sep, [facility] [address] [id number] [place] [address] Sep, [facility] [address] [id number] [place] [address] Sep, [facility] [address] [id number] [place] [address] Sep, [facility] [address] [id number] [place] [address] Sep, [facility] [address] [id number] [place] [address] Sep, [facility] [address] [id number] [place] [address] Sep, [facility] [address] [id number] [place] [address] Sep, [facility] [address] [id number] [place] [address] Sep, [facility] [address] [id number] [place] [address] Aug, [facility] [address] [id number] [place] [address] Aug, [facility] [address] [id number] [place] [address] Aug, [facility] [address] [id number] [place] [address] Aug, [facility] [address] [id number] [place] [address] Aug, [facility] [address] [id number] [place] [address] Aug, [facility] [address] [id number] [place] [address] 16 Aug, 2013 [facility] [address] [id number] [place] [address] Aug, [facility] [address] [id number] [place] [address] Aug, [facility] [address] [id number] [place] [address] Aug, [facility] [address] [facility] [id number] [place] [address] Aug, [facility] [address] [id number] [place] [address] Aug, [facility] [address] [facility] [id number] [place] [address] Aug, [facility] [address] [facility] [id number] [place] [address] Aug, [facility] [address] [facility] [id number] [place] [address] 19 Jul, 2012 [facility] [address] [facility] [id number] [place] [address] 19 Jul, 2013 [facility] [address] [facility] [id number] [place] [address] 18 Jul, 2013 [facility] [address] [facility] [id number] [place] [address] 18 Jul, 2013 [facility] [address] [facility] [id number] [place] [address] 14 Jul, 2013 [facility] [address] [facility] [id number] [place] [address] 14 Jul, 2013 [facility] [address] [facility] [id number] [place] [address] 14 Jul, 2013 [facility] [address] [id number] [place] [address] 14 Jul, 2013 [facility] [address] [facility] [id number] [place] [address] 07 Jul, 2013 [facility] [address] [facility] [id number] [place] [address] 07 Jul, 2013 [facility] [address] [id number] [place] [address] 06 Jul, 2013 [facility] [address] [facility] [id number] [place] [address] 06 Jul, 2013 [facility] [address] [id number] [place] [address] 05 Jul, 2013 [facility] [address] [id number] [place] [address] 05 Jul, 2013 [facility] [id number] [place] [address] Jun, [facility] [address] [facility] [id number] [place] [address] Jun, [facility] [address] [id number] [place] [address] 15 Jun, 2012 [facility] [address] [id number] [place] [address] 15 Jun, 2012 [facility] [address] [address] [id number] [place] [address] 14 Jun, 2012 [facility] [address] [id number] [place] [address] 24 Sep, 2012 [facility] [id number] [facility] [address] 20 Sep, 2012 [facility] [address] [facility] [address] [id number] [place] [address] 20 Sep, 2012 [facility] [address] [id number] [place] [address] 20 Sep, 2012 [facility] [address] [id number] [place] [address] 19 Sep, 2012 [facility] [address] [id number] [place] [address] 13 Sep, 2012 [facility] [id number] [place] [address] 12 Sep, 2012 [facility] [address] [id number] [place] [address] 12 Sep, 2012 [facility] [address] [id number] [place] [address] 11 Sep, 2012 [facility] [id number] [place] [address] 11 Sep, 2012 [facility] [address] [id number] [place] [address] 11 Sep, 2012 [facility] [address] [id number] [place] [address] 09 Sep, 2012 [facility] [address] [id number] [place] [address] 05 Sep, 2012 [facility] [address] [facility] [id number] [place] [address] 04 Sep, 2012 [facility] [address] [id number] [facility] [address] May, [facility] [address] [id number] [facility] [address] Apr, [facility] [address] [facility] [address] [id number] [facility] [address] Apr, [facility] [address] [id number] [place] [address] Apr, [facility] [address] [facility] [address] [id number] [facility] [address] Apr, [facility] [address] [id number] [facility] [address] Apr, [facility] [address] [id number] [place] [address] Apr, [facility] [address] [id number] [place] [address] Apr, [facility] [address] [id number] [place] [address] Apr, [facility] [address] [id number] [place] [address] Apr, [facility] [address] [id number] [place] [address] Mar, [facility] [address] [id number] [place] [address] Mar, [facility] [address] [id number] [place] [address] Mar, [facility] [address] [id number] [place] [address] Mar, [facility] [address] [facility] [id number] [place] [address] Mar, [facility] [address] [id number] [place] [address] Mar, [facility] [address] [id number] [place] [address] Mar, [facility] [address] [id number] [place] [address] Mar, [facility] [address] [id number] [place] [address] Mar, [facility] [address] [id number] [place] [address] Mar, [facility] [address] [id number] [place] [address] Mar, [facility] [address] [id number] [place] [address] Feb, [facility] [address] [id number] [place] [address] Feb, [facility] [address] [id number] [place] [address] Feb, [facility] [address] [id number] [place] [address] Feb, [facility] [address] [id number] [place] [address] Feb, [facility] [address] [id number] [place] [address] Feb, [facility] [address] [id number] [place] [address] Feb, [facility] [address] [id number] [place] [address] Feb, [facility] [address] [id number] [place] [address] Feb, [facility] [address] [id number] [place] [address] January, [facility] [address] [id number] [place] [address] January, [facility] [address] [id number] [place] [address] January, [facility] [address] [id number] [place] [address] January, [facility] [address] [id number] [facility] [address] January, [facility] [address] [id number] [facility] [address] January, [facility] [address] [id number] [facility] [address] January, [facility] [address] [id number] [facility] [address] January, [facility] [address] [id number] [facility] [address] January, [facility] [address] [id number] [facility] [address] January, [facility] [address] [id number] [place] [address] January, [facility] [address] [id number] [facility] [address] January, [facility] [id number] [place] [address] January, [facility] [address] [id number] [place] [address] January[facility] [id number] [place] [address] January, [facility] [address] [id number] [place] [address] January, [facility] [address] [id number] [facility] [address] January, [facility] [address] [id number] [place] [address] January, [facility] [address] [id number] [place] [address] January, [facility] [address] [id number] [place] [address] January, [facility] [address] [id number] [place] [address] January, [facility] [address] [id number] [facility] [address] January, [facility] [address] [id number] [place] [address] January, [facility] [address] [id number] [place] [address] Dec, [facility] [address] [id number] [place] [address] Dec, [facility] [address] [facility] [id number] [place] [address] Dec, [facility] [address] [facility] [id number] [place] [address] Dec, [facility] [address] [facility] [id number] [place] [address] Dec, [facility] [address] [id number] [place] [address] Nov, [facility] [address] [facility] [id number] [place] [address] Oct, [facility] [address] [id number] [place] [address] Oct, [facility] [address] [id number] [place] [address] Oct, [facility] [address] [id number] [place] [address] Oct, [facility] [address] [facility] [id number] [place] [address] Oct, [facility] [address] [facility] [id number] [place] [address] Sep, [facility] [address] [facility] [id number] [place] [address] Sep, [facility] [address] [facility] [id number] [place] [address] Sep, [facility] [address] [facility] [id number] [place] [address] Aug, [facility] [address] [facility] [id number] [place] [address] Aug, [facility] [address] [facility] [id number] [place] [address] Aug, [facility] [address] [facility] [id number] [place] [address] Aug, [facility] [address] [facility] [id number] [place] [address] Jul, [facility] [id number] [place] [address] Jul, [facility] [id number] [place] [address] Jul, [facility] [id number] [place] [address] Jul, [facility] [address] [facility] [id number] [place] [address] Jul, [facility] [id number] [place] [address] Jul, [facility] [address] [facility] [id number] [place] [address] Jun, [facility] [address] [facility] [id number] [place] [address] Jun, [facility] [address] [facility] [id number] [place] [address] Jun, [facility] [address] [facility] [id number] [place] [address] Jun, [facility] [address] [facility] [id number] [place] [address] Jun, [facility] [address] [facility] [id number] [place] [address] Jun, [facility] [address] [facility] [id number] [place] [address] Jun, [facility] [address] [facility] [id number] [place] [address] Jun, [facility] [address] [facility] [id number] [place] [address] Jun, [facility] [address] [facility] [id number] [place] [address] Jun, [facility] [address] [facility] [id number] [place] [address] May, [facility] [address] [facility] [id number] [place] [address] May, [facility] [address] [facility] [id number] [place] [address] May, [facility] [address] [facility] [id number] [place] [address] Apr, [facility] [address] [facility] [id number] [place] [address] Apr, [facility] [address] [facility] [id number] [place] [address] Apr, [facility] [address] [facility] [id number] [place] [address] Apr, [facility] [address] [facility] [id number] [place] [address] Apr, [facility] [address] [facility] [id number] [place] [address] Apr, [facility] [address] [facility] [id number] [place] [address] Apr, [facility] [address] [facility] [id number] [place] [address] Apr, [facility] [address] [facility] [id number] [place] [address] Apr, [facility] [address] [facility] [id number] [place] [address] Mar, [facility] [address] [facility] [id number] [place] [address] Mar, [facility] [address] [id number] [place] [address] Mar, [facility] [address] [facility] [id number] [place] [address] Mar, [facility] [address] [facility] [id number] [place] [address] Feb, [facility] [address] [facility] [id number] [place] [address] Feb, [facility] [address] [facility] [id number] [place] [address] Feb, [facility] [address] [facility] [id number] [place] [address] January, [facility] [address] [facility] [id number] [place] [address] January, [facility] [address] [facility] [id number] [place] [address] January, [facility] [address] [facility] [id number] [place] [address] January, [facility] [address] [facility] [id number] [place] [address] January, [facility] [address] [facility] [id number] [place] [address] Dec, [facility] [address] [facility] [id number] [place] [address] Dec, [facility] [address] [facility] [id number] [place] [address] 16 Dec, 2011 [facility] [address] [id number] [place] [address] 28 Oct, 2011 [facility] [address] [id number] [place] [address] 24 Oct, 2011 [facility] [address] [facility] [id number] [place] [address] Oct, [facility] [address] [facility] [id number] [place] [address] Sep, [facility] [address] [id number] [place] [address] Sep, [facility] [address] [id number] [place] [address] Aug, [facility] [address] [id number] [place] [address] Jul, [facility] [address] [id number] [place] [address] Jul, [facility] [address] [id number] [place] [address] Mar, [facility] [address] [id number] [place] [address] Aug, [facility] [id number] [place] [address] Jul, [facility] [address] [id number] [place] [address] Jul, [facility] [address] [id number] [place] [address] Jul, [facility] [address] [id number] [place] [address] Jul, [facility] [address] [id number] [place] [address] Jun, [facility] [address] [id number] [place] [address] Jun, [facility] [address] [id number] [place] [address] Apr, [facility] [address] [id number] [place] [address] Aug, [facility] [address] [id number] [place] [address] Jul, [facility] [address] [id number] [place] [address] 17 Jul, 2009 [facility] [address] [facility] [id number] [place] [address] Jul, [facility] [address] [facility] [id number] [place] [address] 23 Jun, 2009 [facility] [id number] [place] [address] 10 May, 2009 [facility] [id number] [place] [address] 14 Dec, 2008 [facility] [address] [facility] [id number] [place] [address] Nov, [facility] [id number] [place] [address] 10 Oct, 2008 [facility] [id number] [place] [address] Aug, [facility] [id number] [place] [address] Aug, [facility] [address] [id number] [place] [address] 28 Jun, 2008 IMMUNIZATIONS No Known Immunizations [...] Hospitalization History [facility] [place]- Right wrist injury 03/29/2018
--- OUTSIDE RECORDS SUMMARY | 2020-04-09 00:25 | XMS REPORT ---
Author Author Kateryna LAURENT Organization [facility] Address [address] [place] [address] Care Team Providers Care Preparator Name Role Phone YAMILETH LAURENT Unavailable PROBLEMS Type Condition ICD9-CM Code [id number] Code Onset Dates Condition S tatus SNOMED Code Problem Irregular menses N92.6 Active 801 00600 Problem Migraine with aura and without status migrainosu s, not intractable G43.109 Active 7478464 Problem Uncontrolled type 2 diabetes mellitus with hyperglycemia E11.65 Active 212922806 Problem Morbid obesity due to excess calories E66.01 Active 256541293 Problem RLS (restless legs syndrome) G25.81 A ctive 76711553 Problem Morbid obesity E66.01 Active 89991 6002 ALLERGIES No Information ENCOUNTERS Encounter Location Date Diagnosis [facility] [address] [address] 15 Oct, 2019 [facility] [address] [facility] [id number] [address] [address] 09 Oct, 2019 Influenza J11.1 [facility] [address] [address] 16 Sep, 2019 [facility] [address] [address] 14 Sep, 2019 [facility] [address] [address] 14 Sep, 2019 [facility] [address] [address] 13 Sep, 2019 [facility] [address] [address] 10 Sep, 2019 Pneumonia of left lower lobe due to infe ctious organism J18.9 and Migraine with aura and without status migrainosus, not intractable G43.109 [place] [address] [address] Sep, [place] [address] [address] Sep, [place] [address] [address] Sep, [place] [address] [address] Sep, [place] [address] [address] Sep, Pneumonia of left lower lobe due to infe ctious organism J18.9 and Migraine with aura and without status migrainosus, not intractable G43.109 [place] [address] [address] Aug, Irregular menses N92.6 ; Well woman exam Z01.419 ; Pelvic cramping R10.2 and Left breast lump N63.20 [place] [address] [address] Aug, [place] [address] [address] Aug, Well woman exam Z01.419 ; Left breast nenita mp N63.20 ; Irregular menses N92.6 ; Encounter for immunization Z23 ; Pelvic cramping R10.2 and Screening for cervical cancer Z12.4 [place] [address] [address] Aug, [place] [address] [address] Aug, [place] [address] [address] Aug, [place] [address] [address] Jul, [place] [address] [address] Jun, [facility] [id number] [place] [address] Jun, [place] [address] [address] Jun, [facility] [id number] [place] [address] Jun, BMI 50.0-59.9, adult Z68.43 [place] [id number] [place] [address] Jun, [facility] [address] [facility] [id number] [address] [place] [address] May, Acute non-recurrent sinusiti s, unspecified location J01.90 ; Diarrhea, unspecified R19.7 ; Vomiting, unspecified R11.10 and Morbid obesity E66.01 [place] [id number] [place] [address] Apr, [place] [address] [address] Apr, Anemia due to other cause, not classifie d D64.89 and D-dimer, elevated R79.89 [place] [id number] [place] [address] Apr, [place] [address] [address] Apr, [place] [address] [address] Mar, Anemia due to other cause, not classifie d D64.89 and D-dimer, elevated R79.89 [place] [address] [address] Mar, Leg edema, right R60.0 ; High risk medic ation use Z79.899 and Morbid obesity E66.01 [place] [address] [address] Mar, BMI 50.0-59.9, adult Z68.43 [facility] [address] [address] Mar, [facility] [address] [address] January, Uncontrolled type 2 diabetes mellitus wi th hyperglycemia E11.65 ; RLS (restless legs syndrome) G25.81 and Morbid obesity E66.01 [facility] [address] [address] Oct, Lipoma of right lower extremity D17.23 [place] [address] [address] Oct, Lipoma of right lower extremity D17.23 [place] [address] [address] Sep, [facility] [address] [address] Sep, [facility] [address] [address] Sep, [facility] [address] [address] Sep, [facility] [address] [address] Sep, [facility] [address] [address] Aug, Uncontrolled type 2 diabetes mellitus wi th hyperglycemia E11.65 ; Morbid obesity due to excess calories E66.01 ; Lipoma of torso D17.1 and BMI 50.0-59.9, adult Z68.43 [facility] [address] [address] Jun, Encounter for immunization Z23 [facility] [address] [address] Jul, [facility] [address] [address] Jun, Encounter for immunization Z23 [facility] [id number] [place] [address] 30 May, 2016 [facility] [id number] [place] [address] Jun, Encounter for immunization Z23 [facility] [id number] [place] [address] 29 May, 2015 [facility] [id number] [place] [address] May, [facility] [id number] [place] [address] Apr, [facility] [id number] [place] [address] Feb, [facility] [id number] [place] [address] Feb, [facility] [id number] [place] [address] Feb, [facility] [id number] [place] [address] January, [facility] [id number] [place] [address] January, [facility] [id number] [place] [address] Dec, [facility] [id number] [place] [address] Dec, [facility] [id number] [place] [address] Nov, [facility] [id number] [place] [address] Nov, [facility] [id number] [place] [address] Nov, [facility] [id number] [place] [address] Nov, [facility] [address] [facility] [id number] [place] [address] Nov, [facility] [address] [facility] [id number] [place] [address] Nov, [facility] [address] [facility] [id number] [place] [address] Nov, [facility] [address] [id number] [place] [address] Oct, [facility] [address] [facility] [id number] [place] [address] Oct, [facility] [address] [id number] [place] [address] Oct, [facility] [address] [id number] [place] [address] Oct, [facility] [address] [id number] [place] [address] Oct, [facility] [address] [id number] [place] [address] Sep, [facility] [address] [id number] [place] [address] Sep, [facility] [address] [id number] [place] [address] Sep, [facility] [address] [id number] [place] [address] Sep, [facility] [address] [id number] [place] [address] Sep, [facility] [address] [id number] [place] [address] Sep, [facility] [address] [id number] [place] [address] Sep, [facility] [address] [id number] [place] [address] Sep, [facility] [address] [id number] [place] [address] 07 Sep, 2014 [facility] [address] [id number] [place] [address] Sep, [facility] [address] [id number] [place] [address] Aug, [facility] [address] [id number] [place] [address] Aug, [facility] [address] [id number] [place] [address] Aug, [facility] [address] [id number] [place] [address] Aug, [facility] [address] [id number] [place] [address] Aug, [facility] [address] [id number] [place] [address] Aug, [facility] [address] [id number] [place] [address] Aug, [facility] [address] [id number] [place] [address] Aug, [facility] [address] [id number] [place] [address] Aug, [facility] [address] [id number] [place] [address] Aug, [facility] [address] [id number] [place] [address] Aug, [facility] [address] [id number] [place] [address] Aug, [facility] [address] [id number] [place] [address] Aug, [facility] [address] [id number] [place] [address] Aug, [facility] [address] [id number] [place] [address] Aug, [facility] [address] [id number] [place] [address] 17 Aug, 2014 [facility] [address] [id number] [place] [address] 16 Aug, 2014 [facility] [address] [id number] [place] [address] 16 Aug, 2014 [facility] [address] [id number] [place] [address] Aug, [facility] [address] [id number] [place] [address] Aug, [facility] [address] [id number] [place] [address] 08 Aug, 2014 [facility] [address] [id number] [place] [address] 08 Aug, 2014 [facility] [address] [id number] [place] [address] 05 Aug, 2014 [facility] [address] [id number] [place] [address] 05 Aug, 2014 [facility] [address] [id number] [place] [address] Jul, [facility] [address] [id number] [place] [address] Jul, [facility] [address] [id number] [place] [address] Jun, [facility] [address] [id number] [place] [address] 27 Jun, 2014 [facility] [address] [id number] [place] [address] Jun, [facility] [id number] [place] [address] 17 Jun, 2014 [facility] [address] [id number] [place] [address] 15 Jun, 2014 [facility] [address] [id number] [place] [address] 15 Jun, 2014 [facility] [address] [facility] [id number] [place] [address] 14 Jun, 2014 [facility] [address] [facility] [id number] [place] [address] 14 Jun, 2014 [facility] [address] [id number] [place] [address] 13 Jun, 2014 [facility] [address] [facility] [id number] [place] [address] Jun, [facility] [address] [facility] [id number] [place] [address] Jun, [facility] [address] [id number] [place] [address] Jun, [facility] [address] [id number] [place] [address] Jun, [facility] [address] [id number] [place] [address] Jun, [facility] [address] [facility] [id number] [place] [address] 26 May, 2013 [facility] [address] [id number] [place] [address] 26 Sep, 2013 [facility] [address] [id number] [place] [address] 22 May, 2013 [facility] [address] [id number] [place] [address] 22 May, 2013 [facility] [address] [facility] [id number] [place] [address] 04 Sep, 2013 [facility] [address] [facility] [id number] [place] [address] 04 Sep, 2013 [facility] [address] [id number] [place] [address] 02 Sep, 2013 [facility] [address] [id number] [place] [address] 02 Sep, 2013 [facility] [address] [id number] [place] [address] Apr, [facility] [address] [id number] [place] [address] Apr, [facility] [address] [facility] [id number] [place] [address] Apr, [facility] [address] [id number] [place] [address] Apr, [facility] [address] [id number] [place] [address] Apr, [facility] [address] [id number] [place] [address] Apr, [facility] [address] [id number] [place] [address] Apr, [facility] [address] [id number] [place] [address] Apr, [facility] [address] [id number] [place] [address] Apr, [facility] [address] [id number] [place] [address] Mar, [facility] [address] [id number] [place] [address] Mar, [facility] [address] [id number] [place] [address] Mar, [facility] [address] [id number] [place] [address] Feb, [facility] [address] [id number] [place] [address] Feb, [facility] [address] [id number] [place] [address] Feb, [facility] [address] [facility] [id number] [place] [address] Feb, [facility] [address] [id number] [place] [address] Feb, [facility] [address] [facility] [id number] [place] [address] Feb, [facility] [address] [id number] [place] [address] Feb, [facility] [address] [id number] [place] [address] Feb, [facility] [address] [id number] [place] [address] Feb, [facility] [address] [facility] [id number] [place] [address] Feb, [facility] [address] [id number] [place] [address] Feb, [facility] [address] [id number] [place] [address] Feb, [facility] [address] [id number] [place] [address] Feb, [facility] [address] [id number] [place] [address] Feb, [facility] [address] [id number] [place] [address] Feb, [facility] [address] [id number] [place] [address] Feb, [facility] [address] [id number] [place] [address] January, [facility] [address] [id number] [place] [address] January, [facility] [address] [id number] [place] [address] January, [facility] [address] [id number] [place] [address] January, [facility] [address] [id number] [place] [address] January, [facility] [address] [id number] [place] [address] January, [facility] [address] [id number] [place] [address] January, [facility] [address] [facility] [id number] [place] [address] January, [facility] [address] [facility] [id number] [place] [address] January, [facility] [address] [id number] [place] [address] January, [facility] [address] [facility] [id number] [place] [address] January, [facility] [address] [id number] [place] [address] January, [facility] [address] [facility] [id number] [place] [address] January, [facility] [address] [id number] [place] [address] January, [facility] [address] [facility] [id number] [place] [address] January, [facility] [address] [id number] [place] [address] January, [facility] [address] [facility] [id number] [place] [address] January, [facility] [address] [id number] [place] [address] January, [facility] [address] [facility] [id number] [place] [address] January, [facility] [address] [id number] [place] [address] January, [facility] [address] [facility] [id number] [place] [address] January, [facility] [address] [id number] [place] [address] January, [facility] [address] [id number] [place] [address] January, [facility] [address] [id number] [place] [address] January, [facility] [address] [id number] [place] [address] January, [facility] [address] [id number] [place] [address] January, [facility] [address] [id number] [place] [address] Dec, [facility] [address] [id number] [place] [address] Dec, [facility] [address] [id number] [place] [address] Dec, [facility] [address] [id number] [place] [address] Dec, [facility] [address] [id number] [place] [address] Dec, [facility] [address] [id number] [place] [address] Dec, [facility] [address] [id number] [place] [address] Dec, [facility] [address] [id number] [place] [address] Dec, [facility] [address] [id number] [place] [address] Dec, [facility] [address] [id number] [place] [address] Dec, [facility] [address] [id number] [place] [address] Dec, [facility] [address] [id number] [place] [address] Dec, [facility] [address] [id number] [place] [address] Dec, [facility] [address] [id number] [place] [address] 14 Dec, 2013 [facility] [address] [id number] [place] [address] Dec, [facility] [address] [id number] [place] [address] Dec, [facility] [address] [id number] [place] [address] Dec, [facility] [address] [id number] [place] [address] Dec, [facility] [address] [id number] [place] [address] Dec, [facility] [id number] [place] [address] Dec, [facility] [id number] [place] [address] Dec, [facility] [id number] [place] [address] Dec, [facility] [id number] [place] [address] Nov, [facility] [id number] [place] [address] Nov, [facility] [id number] [place] [address] Nov, [facility] [id number] [place] [address] Nov, [facility] [id number] [place] [address] Nov, [facility] [id number] [place] [address] 24 Nov, 2013 [facility] [id number] [place] [address] Nov, [facility] [id number] [place] [address] Nov, [facility] [address] [facility] [id number] [place] [address] Nov, [facility] [address] [facility] [id number] [place] [address] 18 Nov, 2013 [facility] [id number] [place] [address] 18 Nov, 2013 [facility] [id number] [place] [address] 18 Nov, 2013 [facility] [address] [facility] [id number] [place] [address] Nov, [facility] [id number] [place] [address] 14 Nov, 2013 [facility] [id number] [place] [address] Nov, [facility] [id number] [place] [address] Nov, [facility] [id number] [place] [address] Oct, [facility] [id number] [place] [address] Oct, [facility] [id number] [place] [address] Oct, [facility] [id number] [place] [address] Oct, [facility] [id number] [place] [address] 24 Oct, 2013 [facility] [id number] [place] [address] Oct, [facility] [id number] [place] [address] Oct, [facility] [id number] [place] [address] Oct, [facility] [id number] [place] [address] Oct, [facility] [id number] [place] [address] Oct, [facility] [id number] [place] [address] Oct, [facility] [id number] [place] [address] Oct, [facility] [id number] [place] [address] Oct, [facility] [id number] [place] [address] Oct, [facility] [id number] [place] [address] Oct, [facility] [id number] [place] [address] Sep, [facility] [id number] [place] [address] Sep, [facility] [id number] [place] [address] Sep, [facility] [id number] [place] [address] Sep, [facility] [id number] [place] [address] Sep, [facility] [id number] [place] [address] Sep, [facility] [id number] [place] [address] Sep, [facility] [id number] [place] [address] Sep, [facility] [id number] [place] [address] Sep, [facility] [id number] [place] [address] Sep, [facility] [id number] [place] [address] Sep, [facility] [id number] [place] [address] Sep, [facility] [id number] [place] [address] Sep, [facility] [id number] [place] [address] Aug, [facility] [id number] [place] [address] Aug, [facility] [id number] [place] [address] Aug, [facility] [id number] [place] [address] Aug, [facility] [id number] [place] [address] Aug, [facility] [id number] [place] [address] Aug, [facility] [id number] [place] [address] 16 Aug, 2013 [facility] [id number] [place] [address] 16 Aug, 2013 [facility] [id number] [place] [address] Aug, [facility] [id number] [place] [address] Aug, [facility] [id number] [place] [address] 10 Aug, 2013 [facility] [id number] [place] [address] 10 Aug, 2013 [facility] [id number] [place] [address] Aug, [facility] [address] [id number] [place] [address] 02 Aug, 2012 [facility] [place] [facility] [address] [id number] [place] [address] Jul, [facility] [place] [facility] [address] [id number] [place] [address] 19 Jul, 2013 [facility] [place] [facility] [address] [id number] [place] [address] 18 Jul, 2013 [facility] [place] [facility] [address] [id number] [place] [address] 18 Jul, 2013 [facility] [place] [facility] [address] [id number] [place] [address] 14 Jul, 2013 [facility] [place] [facility] [address] [id number] [place] [address] 14 Jul, 2013 [facility] [place] [facility] [address] [id number] [place] [address] 14 Jul, 2013 [facility] [place] [facility] [address] [id number] [place] [address] 14 Jul, 2013 [facility] [place] [facility] [address] [id number] [place] [address] 07 Jul, 2013 [facility] [place] [facility] [address] [id number] [place] [address] 07 Jul, 2013 [facility] [place] [facility] [address] [id number] [place] [address] 06 Jul, 2013 [facility] [place] [facility] [address] [id number] [place] [address] 06 Jul, 2013 [facility] [place] [facility] [address] [id number] [place] [address] 05 Jul, 2013 [facility] [place] [facility] [address] [id number] [place] [address] Jul, [facility] [place] [facility] [address] [id number] [place] [address] Jun, [facility] [place] [facility] [address] [id number] [place] [address] Jun, [facility] [place] [facility] [address] [id number] [place] [address] 15 Jun, 2012 [facility] [place] [facility] [address] [id number] [place] [address] 15 Jun, 2012 [facility] [place] [facility] [address] [id number] [place] [address] 14 Jun, 2012 [facility] [place] [facility] [address] [id number] [place] [address] 24 Sep, 2012 [facility] [place] [facility] [address] [id number] [place] [address] 20 Sep, 2012 [facility] [place] [facility] [address] [id number] [place] [address] 20 Sep, 2012 [facility] [place] [facility] [address] [id number] [place] [address] 20 Sep, 2012 [facility] [place] [facility] [address] [id number] [place] [address] 19 Sep, 2012 [facility] [place] [facility] [address] [id number] [place] [address] 13 Sep, 2012 [facility] [place] [facility] [address] [id number] [place] [address] 12 Sep, 2012 [facility] [place] [facility] [address] [id number] [place] [address] 12 Sep, 2012 [facility] [place] [facility] [address] [id number] [place] [address] 11 Sep, 2012 [facility] [place] [facility] [address] [id number] [place] [address] 11 Sep, 2012 [facility] [place] [facility] [address] [id number] [place] [address] 11 Sep, 2012 [facility] [place] [facility] [address] [id number] [place] [address] 09 Sep, 2012 [facility] [place] [facility] [address] [id number] [place] [address] 05 Sep, 2012 [facility] [place] [facility] [address] [id number] [place] [address] May, [facility] [place] [facility] [address] [id number] [place] [address] May, [facility] [place] [facility] [address] [facility] [id number] [place] [address] Apr, [facility] [place] [facility] [address] [id number] [place] [address] Apr, [facility] [place] [facility] [address] [id number] [place] [address] Apr, [facility] [place] [facility] [address] [facility] [id number] [place] [address] Apr, [facility] [place] [facility] [address] [id number] [place] [address] Apr, [facility] [place] [facility] [address] [id number] [place] [address] Apr, [facility] [place] [facility] [address] [id number] [place] [address] Apr, [facility] [place] [facility] [address] [id number] [place] [address] Apr, [facility] [place] [facility] [address] [id number] [place] [address] Apr, [facility] [place] [facility] [address] [id number] [place] [address] Mar, [facility] [place] [facility] [address] [id number] [place] [address] Mar, [facility] [place] [facility] [address] [id number] [place] [address] Mar, [facility] [place] [facility] [address] [id number] [place] [address] Mar, [facility] [place] [facility] [address] [id number] [place] [address] Mar, [facility] [place] [facility] [address] [id number] [place] [address] Mar, [facility] [place] [facility] [address] [id number] [place] [address] Mar, [facility] [place] [facility] [address] [id number] [place] [address] Mar, [facility] [place] [facility] [address] [facility] [id number] [place] [address] Mar, [facility] [place] [facility] [address] [id number] [place] [address] Mar, [facility] [place] [facility] [address] [facility] [id number] [place] [address] Mar, [facility] [place] [facility] [address] [facility] [id number] [place] [address] Feb, [facility] [place] [facility] [address] [id number] [place] [address] Feb, [facility] [place] [facility] [address] [id number] [place] [address] Feb, [facility] [place] [facility] [address] [id number] [place] [address] Feb, [facility] [place] [facility] [address] [id number] [place] [address] Feb, [facility] [place] [facility] [address] [id number] [place] [address] Feb, [facility] [place] [facility] [address] [id number] [place] [address] Feb, [facility] [place] [facility] [address] [id number] [place] [address] Feb, [facility] [place] [facility] [address] [facility] [id number] [place] [address] Feb, [facility] [place] [facility] [address] [id number] [place] [address] January, [facility] [place] [facility] [address] [id number] [place] [address] January, [facility] [place] [facility] [address] [id number] [place] [address] January, [facility] [address] [id number] [place] [address] January, [facility] [address] [id number] [place] [address] January, [facility] [address] [id number] [place] [address] January, [facility] [address] [id number] [place] [address] January, [facility] [place] [facility] [address] [id number] [place] [address] January, [facility] [address] [id number] [place] [address] January, [facility] [address] [id number] [place] [address] January, [facility] [address] [id number] [place] [address] January, [facility] [address] [id number] [place] [address] January, [facility] [address] [id number] [place] [address] January, [facility] [place] [facility] [address] [id number] [place] [address] January, [facility] [address] [id number] [place] [address] January, [facility] [place] [facility] [address] [id number] [place] [address] January, [facility] [place] [facility] [address] [id number] [place] [address] January, [facility] [place] [facility] [address] [id number] [place] [address] January, [facility] [place] [facility] [address] [id number] [place] [address] January, [facility] [place] [facility] [address] [id number] [place] [address] January, [facility] [place] [facility] [address] [id number] [place] [address] January, [facility] [place] [facility] [address] [id number] [place] [address] January, [facility] [place] [facility] [address] [id number] [place] [address] January, [facility] [place] [facility] [address] [id number] [place] [address] Dec, [facility] [place] [facility] [address] [id number] [place] [address] Dec, [facility] [place] [facility] [address] [id number] [place] [address] Dec, [facility] [place] [facility] [address] [id number] [place] [address] Dec, [facility] [place] [facility] [address] [id number] [place] [address] Dec, [facility] [place] [facility] [address] [id number] [place] [address] Nov, [facility] [place] [facility] [address] [id number] [place] [address] Oct, [facility] [place] [facility] [address] [id number] [place] [address] Oct, [facility] [place] [facility] [address] [id number] [place] [address] Oct, [facility] [place] [facility] [address] [id number] [place] [address] Oct, [facility] [place] [facility] [address] [id number] [place] [address] Oct, [facility] [place] [facility] [address] [id number] [place] [address] Sep, [facility] [place] [facility] [address] [id number] [place] [address] Sep, [facility] [place] [facility] [address] [id number] [place] [address] Sep, [facility] [place] [facility] [address] [id number] [place] [address] Aug, [facility] [place] [facility] [address] [id number] [place] [address] Aug, [facility] [place] [facility] [id number] [place] [address] Aug, [facility] [place] [facility] [address] [id number] [place] [address] Aug, [facility] [place] [facility] [address] [id number] [place] [address] Jul, [facility] [place] [facility] [address] [id number] [place] [address] Jul, [facility] [place] [facility] [id number] [place] [address] Jul, [facility] [place] [facility] [id number] [place] [address] Jul, [facility] [place] [facility] [id number] [place] [address] Jul, [facility] [place] [facility] [id number] [place] [address] Jul, [facility] [place] [facility] [id number] [place] [address] Jun, [facility] [place] [facility] [address] [id number] [place] [address] Jun, [facility] [place] [facility] [address] [id number] [place] [address] Jun, [facility] [place] [facility] [id number] [place] [address] 10 Jun, 2012 [facility] [place] [facility] [address] [id number] [place] [address] 09 Jun, 2012 [facility] [place] [facility] [id number] [place] [address] Jun, [facility] [place] [facility] [address] [facility] [id number] [place] [address] Jun, [facility] [place] [facility] [address] [id number] [place] [address] Jun, [facility] [place] [facility] [address] [id number] [place] [address] Jun, [facility] [place] [facility] [address] [id number] [place] [address] Jun, [facility] [place] [facility] [address] [facility] [id number] [place] [address] May, [facility] [place] [facility] [address] [id number] [place] [address] May, [facility] [place] [facility] [address] [id number] [place] [address] May, [facility] [place] [facility] [address] [id number] [place] [address] Apr, [facility] [place] [facility] [address] [id number] [place] [address] Apr, [facility] [place] [facility] [address] [id number] [place] [address] Apr, [facility] [place] [facility] [address] [id number] [place] [address] Apr, [facility] [place] [facility] [address] [id number] [place] [address] Apr, [facility] [place] [facility] [address] [id number] [place] [address] Apr, [facility] [place] [facility] [address] [id number] [place] [address] Apr, [facility] [place] [facility] [address] [id number] [place] [address] Apr, [facility] [place] [facility] [address] [id number] [place] [address] Apr, [facility] [place] [facility] [address] [id number] [place] [address] Mar, [facility] [place] [facility] [address] [id number] [place] [address] Mar, [facility] [place] [facility] [address] [id number] [place] [address] Mar, [facility] [place] [facility] [address] [id number] [place] [address] Mar, [facility] [place] [facility] [address] [id number] [place] [address] Feb, [facility] [place] [facility] [address] [id number] [place] [address] Feb, [facility] [place] [facility] [address] [id number] [place] [address] Feb, [facility] [place] [facility] [address] [id number] [place] [address] January, [facility] [place] [facility] [address] [id number] [place] [address] January, [facility] [place] [facility] [address] [id number] [place] [address] January, [facility] [place] [facility] [address] [id number] [place] [address] January, [facility] [place] [facility] [address] [id number] [place] [address] January, [facility] [place] [facility] [address] [id number] [place] [address] Dec, [facility] [place] [facility] [address] [id number] [place] [address] Dec, [facility] [place] [facility] [address] [id number] [place] [address] 16 Dec, 2011 [facility] [place] [facility] [address] [id number] [place] [address] Oct, [facility] [place] [facility] [address] [id number] [place] [address] Oct, [facility] [place] [facility] [address] [id number] [place] [address] Oct, [facility] [address] [id number] [place] [address] Sep, [facility] [place] [facility] [address] [id number] [place] [address] Sep, [facility] [address] [id number] [place] [address] Aug, [facility] [place] [facility] [address] [id number] [place] [address] Jul, [facility] [place] [facility] [address] [id number] [place] [address] Jul, [facility] [place] [facility] [address] [id number] [place] [address] Mar, [facility] [address] [id number] [place] [address] Aug, [facility] [place] [facility] [address] [id number] [place] [address] Jul, [facility] [place] [facility] [address] [id number] [place] [address] Jul, [facility] [place] [facility] [address] [id number] [place] [address] Jul, [facility] [place] [facility] [address] [id number] [place] [address] Jul, [facility] [place] [facility] [address] [id number] [place] [address] 14 Jun, 2010 [facility] [place] [facility] [address] [id number] [place] [address] Jun, [facility] [place] [facility] [address] [id number] [place] [address] Apr, [facility] [place] [facility] [address] [id number] [place] [address] Aug, [facility] [place] [facility] [address] [id number] [place] [address] Jul, [facility] [address] [id number] [place] [address] Jul, [facility] [id number] [place] [address] Jul, [facility] [address] [id number] [place] [address] 23 Jun, 2009 [facility] [id number] [place] [address] 10 May, 2009 [facility] [id number] [place] [address] 14 Dec, 2008 [facility] [id number] [place] [address] Nov, [facility] [id number] [place] [address] 10 Oct, 2008 [facility] [id number] [place] [address] Aug, [facility] [id number] [place] [address] Aug, [facility] [id number] [place] [address] Jun, IMMUNIZATIONS No Known Immunizations SOCIAL HISTORY [...] x 3 day s 04/2012 Hospitalization History [facility] [place]- Right wrist injury 03/29/2018
--- OUTSIDE RECORDS SUMMARY | 2020-04-09 00:26 | XMS REPORT ---
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 Name Role Phone YAMILETH LAURENT Unavailable PROBLEMS Type Condition ICD9-CM Code OVG75-XY Code Onset Dates Condition S tatus SNOMED Code Problem Irregular menses N92.6 Active 801 94156 Problem Migraine with aura and without status migrainosu s, not intractable G43.109 Active 9419174 Problem Uncontrolled type 2 diabetes mellitus with hyperglycemia E11.65 Active 422033885 Problem Morbid obesity due to excess calories E66.01 Active 666581953 Problem RLS (restless legs syndrome) G25.81 A ctive 60616202 Problem Morbid obesity E66.01 Active 34196 6002 ALLERGIES No Information ENCOUNTERS Encounter Location Date Diagnosis [facility] [address] [address] 15 Oct, 2019 [facility] WALK IN [facility] [address] [facility] [id number] [place] [address] 09 Oct, 2019 Influenza J11.1 [facility] [address] [address] 16 Sep, 2019 [facility] [address] [address] 14 Sep, 2019 [facility] [address] [address] 14 Sep, 2019 [facility] [address] [address] 13 Sep, 2019 [facility] [address] [address] 10 Sep, 2019 Pneumonia of left lower lobe due to infe ctious organism J18.9 and Migraine with aura and without status migrainosus, not intractable G43.109 [place] [address] [address] Sep, [place] [address] [address] Sep, [place] [address] [address] Sep, [place] [address] [address] Sep, [place] [address] [address] Sep, Pneumonia of left lower lobe due to infe ctious organism J18.9 and Migraine with aura and without status migrainosus, not intractable G43.109 [place] [address] [address] Aug, Irregular menses N92.6 ; Well woman exam Z01.419 ; Pelvic cramping R10.2 and Left breast lump N63.20 [place] [address] [address] Aug, [place] [address] [address] Aug, Well woman exam Z01.419 ; Left breast nenita mp N63.20 ; Irregular menses N92.6 ; Encounter for immunization Z23 ; Pelvic cramping R10.2 and Screening for cervical cancer Z12.4 [place] [address] [address] Aug, [place] [address] [address] Aug, [place] [address] [address] Aug, [place] [address] [address] Jul, [place] [address] [address] Jun, [facility] [id number] [place] [address] Jun, [place] [address] [address] Jun, [facility] [id number] [place] [address] Jun, BMI 50.0-59.9, adult Z68.43 [place] [id number] [place] [address] Jun, [facility] IN [facility] [address] [facility] [id number] [address] [place] [address] May, Acute non-recurrent sinusiti s, unspecified location J01.90 ; Diarrhea, unspecified R19.7 ; Vomiting, unspecified R11.10 and Morbid obesity E66.01 [place] [id number] [place] [address] Apr, [place] [address] [address] Apr, Anemia due to other cause, not classifie d D64.89 and D-dimer, elevated R79.89 [place] [id number] [place] [address] Apr, [place] [address] [address] Apr, [place] [address] [address] Mar, Anemia due to other cause, not classifie d D64.89 and D-dimer, elevated R79.89 [place] [address] [address] Mar, Leg edema, right R60.0 ; High risk medic ation use Z79.899 and Morbid obesity E66.01 [place] [address] [address] Mar, BMI 50.0-59.9, adult Z68.43 [facility] [address] [address] Mar, [facility] [address] [address] January, Uncontrolled type 2 diabetes mellitus wi th hyperglycemia E11.65 ; RLS (restless legs syndrome) G25.81 and Morbid obesity E66.01 [facility] [address] [address] Oct, Lipoma of right lower extremity D17.23 [place] [address] [address] Oct, Lipoma of right lower extremity D17.23 [place] [address] [address] Sep, [facility] [address] [address] Sep, [facility] [address] [address] Sep, [facility] [address] [address] Sep, [facility] [address] [address] Sep, [facility] [address] [address] Aug, Uncontrolled type 2 diabetes mellitus wi th hyperglycemia E11.65 ; Morbid obesity due to excess calories E66.01 ; Lipoma of torso D17.1 and BMI 50.0-59.9, adult Z68.43 [facility] [address] [address] Jun, Encounter for immunization Z23 [facility] [address] [address] Jul, [facility] [address] [address] Jun, Encounter for immunization Z23 [facility] [id number] [place] [address] 30 May, 2016 [facility] [id number] [place] [address] Jun, Encounter for immunization Z23 [facility] [id number] [place] [address] 29 May, 2015 [facility] [id number] [place] [address] May, [facility] [id number] [place] [address] Apr, [facility] [id number] [place] [address] Feb, [facility] [id number] [place] [address] Feb, [facility] [id number] [place] [address] Feb, [facility] [id number] [place] [address] January, [facility] [id number] [place] [address] January, [facility] [id number] [place] [address] Dec, [facility] [id number] [place] [address] Dec, [facility] [id number] [place] [address] Nov, [facility] [id number] [place] [address] Nov, [facility] [id number] [place] [address] Nov, [facility] [id number] [place] [address] Nov, [facility] [address] [facility] [id number] [place] [address] Nov, [facility] [address] [facility] [id number] [facility] [place] [facility] [place] [address] Nov, [facility] [address] [facility] [id number] [facility] [place] [address] Nov, [facility] [address] [id number] [facility] [place] [facility] [place] [address] Oct, [facility] [address] [facility] [id number] [facility] [place] [address] Oct, [facility] [address] [id number] [place] [address] Oct, [facility] [address] [id number] [place] [address] Oct, [facility] [address] [id number] [place] [address] Oct, [facility] [address] [id number] [place] [address] Sep, [facility] [address] [id number] [place] [address] Sep, [facility] [address] [id number] [place] [address] Sep, [facility] [address] [id number] [place] [address] Sep, [facility] [address] [id number] [place] [address] Sep, [facility] [address] [id number] [place] [address] Sep, [facility] [address] [id number] [place] [address] Sep, [facility] [address] [id number] [place] [address] Sep, [facility] [address] [id number] [facility] [place] [facility] [place] [address] 07 Sep, 2014 [facility] [address] [id number] [place] [address] Sep, [facility] [address] [id number] [place] [address] Aug, [facility] [address] [id number] [place] [address] Aug, [facility] [address] [id number] [place] [address] Aug, [facility] [address] [id number] [place] [address] Aug, [facility] [address] [id number] [place] [address] Aug, [facility] [address] [id number] [place] [address] Aug, [facility] [address] [id number] [place] [address] Aug, [facility] [address] [id number] [place] [address] Aug, [facility] [address] [id number] [place] [address] Aug, [facility] [address] [id number] [place] [address] Aug, [facility] [address] [id number] [place] [address] Aug, [facility] [address] [id number] [place] [address] Aug, [facility] [address] [id number] [place] [address] Aug, [facility] [address] [id number] [place] [address] Aug, [facility] [address] [id number] [place] [address] Aug, [facility] [address] [id number] [place] [address] 17 Aug, 2014 [facility] [address] [id number] [place] [address] 16 Aug, 2014 [facility] [address] [id number] [place] [address] 16 Aug, 2014 [facility] [address] [id number] [place] [address] Aug, [facility] [address] [id number] [place] [address] Aug, [facility] [address] [id number] [place] [address] 08 Aug, 2014 [facility] [address] [id number] [place] [address] 08 Aug, 2014 [facility] [address] [id number] [place] [address] 05 Aug, 2014 [facility] [address] [id number] [place] [address] 05 Aug, 2014 [facility] [address] [id number] [place] [address] Jul, [facility] [address] [id number] [place] [address] Jul, [facility] [address] [id number] [place] [address] Jun, [facility] [address] [id number] [place] [address] 27 Jun, 2014 [facility] [address] [id number] [place] [address] Jun, [facility] [id number] [place] [address] 17 Jun, 2014 [facility] [address] [id number] [place] [address] 15 Jun, 2014 [facility] [address] [id number] [place] [address] 15 Jun, 2014 [facility] [address] [facility] [id number] [place] [address] 14 Jun, 2014 [facility] [address] [facility] [id number] [place] [address] 14 Jun, 2014 [facility] [address] [id number] [place] [address] 13 Jun, 2014 [facility] [address] [facility] [id number] [place] [address] Jun, [facility] [address] [facility] [id number] [place] [address] Jun, [facility] [address] [id number] [place] [address] Jun, [facility] [address] [id number] [place] [address] Jun, [facility] [address] [id number] [place] [address] Jun, [facility] [address] [facility] [id number] [place] [address] 26 May, 2013 [facility] [address] [id number] [place] [address] 26 Sep, 2013 [facility] [address] [id number] [place] [address] 22 May, 2013 [facility] [address] [id number] [place] [address] 22 May, 2013 [facility] [address] [facility] [id number] [place] [address] 04 Sep, 2013 [facility] [address] [facility] [id number] [place] [address] 04 Sep, 2013 [facility] [address] [id number] [place] [address] 02 Sep, 2013 [facility] [address] [id number] [place] [address] 02 Sep, 2013 [facility] [address] [id number] [facility] [place] [place] [address] Apr, [facility] [address] [id number] [facility] [place] [address] Apr, [facility] [address] [facility] [id number] [place] [address] Apr, [facility] [address] [id number] [place] [address] Apr, [facility] [address] [id number] [place] [address] Apr, [facility] [address] [id number] [place] [address] Apr, [facility] [address] [id number] [place] [address] Apr, [facility] [address] [id number] [place] [address] Apr, [facility] [address] [id number] [place] [address] Apr, [facility] [address] [id number] [place] [address] Mar, [facility] [address] [id number] [place] [address] Mar, [facility] [address] [id number] [place] [address] Mar, [facility] [address] [id number] [place] [address] Feb, [facility] [address] [id number] [place] [address] Feb, [facility] [address] [id number] [place] [address] Feb, [facility] [address] [facility] [id number] [place] [address] Feb, [facility] [address] [id number] [place] [address] Feb, [facility] [address] [facility] [id number] [place] [address] Feb, [facility] [address] [id number] [place] [address] Feb, [facility] [address] [id number] [place] [address] Feb, [facility] [address] [id number] [place] [address] Feb, [facility] [address] [facility] [id number] [place] [address] Feb, [facility] [address] [id number] [place] [address] Feb, [facility] [address] [id number] [place] [address] Feb, [facility] [address] [id number] [place] [address] Feb, [facility] [address] [id number] [place] [address] Feb, [facility] [address] [id number] [place] [address] Feb, [facility] [address] [id number] [place] [address] Feb, [facility] [address] [id number] [place] [address] January, [facility] [address] [id number] [place] [address] January, [facility] [address] [id number] [place] [address] January, [facility] [address] [id number] [place] [address] January, [facility] [address] [id number] [place] [address] January, [facility] [address] [id number] [place] [address] January, [facility] [address] [id number] [place] [address] January, [facility] [address] [facility] [id number] [facility] [place] [address] January, [facility] [address] [facility] [id number] [place] [address] January, [facility] [address] [id number] [facility] [place] [address] January, [facility] [address] [facility] [id number] [place] [address] January, [facility] [address] [id number] [facility] [place] [address] January, [facility] [address] [facility] [id number] [place] [address] January, [facility] [address] [id number] [place] [address] January, [facility] [address] [facility] [id number] [place] [address] January, [facility] [address] [id number] [place] [address] January, [facility] [address] [facility] [id number] [place] [address] January, [facility] [address] [id number] [place] [address] January, [facility] [address] [facility] [id number] [place] [address] January, [facility] [address] [id number] [place] [address] January, [facility] [address] [facility] [id number] [place] [address] January, [facility] [address] [id number] [place] [address] January, [facility] [address] [id number] [facility] [place] [place] [address] January, [facility] [address] [id number] [place] [address] January, [facility] [address] [id number] [place] [address] January, [facility] [address] [id number] [place] [address] January, [facility] [address] [id number] [place] [address] Dec, [facility] [address] [id number] [place] [address] Dec, [facility] [address] [id number] [place] [address] Dec, [facility] [address] [id number] [place] [address] Dec, [facility] [address] [id number] [place] [address] Dec, [facility] [address] [id number] [place] [address] Dec, [facility] [address] [id number] [place] [address] Dec, [facility] [address] [id number] [place] [address] Dec, [facility] [address] [id number] [place] [address] Dec, [facility] [address] [id number] [place] [address] Dec, [facility] [address] [id number] [place] [address] Dec, [facility] [address] [id number] [place] [address] Dec, [facility] [address] [id number] [place] [address] Dec, [facility] [address] [id number] [place] [address] 14 Dec, 2013 [facility] [address] [id number] [place] [address] Dec, [facility] [address] [id number] [place] [address] Dec, [facility] [address] [id number] [place] [address] Dec, [facility] [address] [id number] [place] [address] Dec, [facility] [address] [id number] [place] [address] Dec, [facility] [address] [id number] [place] [address] Dec, [facility] [address] [id number] [place] [address] Dec, [facility] [address] [id number] [place] [address] Dec, [facility] [address] [id number] [place] [address] Nov, [facility] [address] [id number] [place] [address] Nov, [facility] [address] [id number] [place] [address] Nov, [facility] [address] [id number] [place] [address] Nov, [facility] [address] [id number] [place] [address] Nov, [facility] [address] [id number] [place] [address] 24 Nov, 2013 [facility] [address] [id number] [place] [address] Nov, [facility] [address] [id number] [place] [address] Nov, [facility] [address] [facility] [id number] [place] [address] Nov, [facility] [address] [facility] [id number] [facility] [place] [address] 18 Nov, 2013 [facility] [address] [id number] [place] [address] 18 Nov, 2013 [facility] [address] [id number] [facility] [address] 18 Nov, 2013 [facility] [address] [facility] [id number] [place] [address] Nov, [facility] [address] [id number] [place] [address] 14 Nov, 2013 [facility] [address] [id number] [place] [address] Nov, [facility] [address] [id number] [place] [address] Nov, [facility] [address] [id number] [place] [address] Oct, [facility] [address] [id number] [place] [address] Oct, [facility] [address] [id number] [place] [address] Oct, [facility] [address] [id number] [place] [address] Oct, [facility] [address] [id number] [place] [address] 24 Oct, 2013 [facility] [address] [id number] [place] [address] Oct, [facility] [address] [id number] [place] [address] Oct, [facility] [address] [id number] [place] [address] Oct, [facility] [address] [id number] [place] [address] Oct, [facility] [address] [id number] [place] [address] Oct, [facility] [address] [id number] [place] [address] Oct, [facility] [address] [id number] [place] [address] Oct, [facility] [address] [id number] [place] [address] Oct, [facility] [address] [id number] [place] [address] Oct, [facility] [address] [id number] [place] [address] Oct, [facility] [address] [id number] [place] [address] Sep, [facility] [address] [id number] [place] [address] Sep, [facility] [address] [id number] [place] [address] Sep, [facility] [address] [id number] [place] [address] Sep, [facility] [address] [id number] [place] [address] Sep, [facility] [address] [id number] [place] [address] Sep, [facility] [address] [id number] [place] [address] Sep, [facility] [address] [id number] [place] [address] Sep, [facility] [address] [id number] [place] [address] Sep, [facility] [address] [id number] [place] [address] Sep, [facility] [address] [id number] [place] [address] Sep, [facility] [address] [id number] [place] [address] Sep, [facility] [address] [id number] [place] [address] Sep, [facility] [address] [id number] [place] [address] Aug, [facility] [address] [id number] [place] [address] Aug, [facility] [address] [id number] [place] [address] Aug, [facility] [address] [id number] [place] [address] Aug, [facility] [address] [id number] [place] [address] Aug, [facility] [address] [id number] [place] [address] Aug, [facility] [address] [id number] [place] [address] 16 Aug, 2013 [facility] [address] [id number] [place] [address] 16 Aug, 2013 [facility] [address] [id number] [place] [address] Aug, [facility] [address] [id number] [place] [address] Aug, [facility] [address] [id number] [place] [address] 10 Aug, 2013 [facility] [address] [id number] [place] [address] 10 Aug, 2013 [facility] [address] [id number] [place] [address] Aug, [facility] [place] [facility] [address] [id number] [place] [address] 02 Aug, 2012 [facility] [place] [facility] [address] [id number] [place] [address] Jul, [facility] [place] [facility] [address] [id number] [place] [address] 19 Jul, 2013 [facility] [place] [facility] [address] [id number] [place] [address] 18 Jul, 2013 [facility] [place] [facility] [address] [id number] [place] [address] 18 Jul, 2013 [facility] [place] [facility] [address] [id number] [place] [address] 14 Jul, 2013 [facility] [place] [facility] [address] [id number] [place] [address] 14 Jul, 2013 [facility] [place] [facility] [address] [id number] [place] [address] 14 Jul, 2013 [facility] [place] [facility] [address] [id number] [place] [address] 14 Jul, 2013 [facility] [place] [facility] [address] [id number] [place] [address] 07 Jul, 2013 [facility] [place] [facility] [address] [id number] [place] [address] 07 Jul, 2013 [facility] [place] [facility] [address] [id number] [place] [address] 06 Jul, 2013 [facility] [place] [facility] [address] [id number] [place] [address] 06 Jul, 2013 [facility] [place] [facility] [address] [id number] [place] [address] 05 Jul, 2013 [facility] [place] [facility] [address] [id number] [place] [address] Jul, [facility] [place] [facility] [address] [id number] [place] [address] Jun, [facility] [place] [facility] [address] [id number] [place] [address] Jun, [facility] [place] [facility] [address] [id number] [place] [address] 15 Jun, 2012 [facility] [place] [facility] [address] [id number] [place] [address] 15 Jun, 2012 [facility] [place] [facility] [address] [id number] [place] [address] 14 Jun, 2012 [facility] [place] [facility] [address] [id number] [place] [address] 24 Sep, 2012 [facility] [place] [facility] [address] [id number] [place] [address] 20 Sep, 2012 [facility] [place] [facility] [address] [id number] [place] [address] 20 Sep, 2012 [facility] [place] [facility] [address] [id number] [place] [address] 20 Sep, 2012 [facility] [place] [facility] [address] [id number] [place] [address] 19 Sep, 2012 [facility] [place] [facility] [address] [id number] [place] [address] 13 Sep, 2012 [facility] [place] [facility] [address] [id number] [place] [address] 12 Sep, 2012 [facility] [place] [facility] [address] [id number] [place] [address] 12 Sep, 2012 [facility] [place] [facility] [address] [id number] [place] [address] 11 Sep, 2012 [facility] [place] [facility] [address] [id number] [place] [address] 11 Sep, 2012 [facility] [place] [facility] [address] [id number] [place] [address] 11 Sep, 2012 [facility] [place] [facility] [address] [id number] [place] [address] 09 Sep, 2012 [facility] [place] [facility] [address] [id number] [place] [address] 05 Sep, 2012 [facility] [place] [facility] [address] [id number] [place] [address] May, [facility] [place] [facility] [address] [id number] [facility] [place] [address] May, [facility] [place] [facility] [address] [facility] [id number] [facility] [address] Apr, [facility] [place] [facility] [address] [id number] [facility] [place] [address] Apr, [facility] [place] [facility] [address] [id number] [place] [address] Apr, [facility] [place] [facility] [address] [facility] [id number] [facility] [place] [address] Apr, [facility] [place] [facility] [address] [id number] [facility] [place] [address] Apr, [facility] [place] [facility] [address] [id number] [facility] [place] [address] Apr, [facility] [place] [facility] [address] [id number] [place] [address] Apr, [facility] [place] [facility] [address] [id number] [facility] [place] [address] Apr, [facility] [place] [facility] [address] [id number] [place] [address] Apr, [facility] [place] [facility] [address] [id number] [place] [address] Mar, [facility] [place] [facility] [address] [id number] [place] [address] Mar, [facility] [place] [facility] [address] [id number] [facility] [place] [address] Mar, [facility] [place] [facility] [address] [id number] [place] [address] Mar, [facility] [place] [facility] [address] [id number] [place] [address] Mar, [facility] [place] [facility] [address] [id number] [place] [address] Mar, [facility] [place] [facility] [address] [id number] [facility] [place] [address] Mar, [facility] [place] [facility] [address] [id number] [place] [address] Mar, [facility] [place] [facility] [address] [facility] [id number] [place] [address] Mar, [facility] [place] [facility] [address] [id number] [place] [address] Mar, [facility] [place] [facility] [address] [facility] [id number] [place] [address] Mar, [facility] [place] [facility] [address] [facility] [id number] [place] [address] Feb, [facility] [place] [facility] [address] [id number] [place] [address] Feb, [facility] [place] [facility] [address] [id number] [place] [address] Feb, [facility] [place] [facility] [address] [id number] [place] [address] Feb, [facility] [place] [facility] [address] [id number] [place] [address] Feb, [facility] [place] [facility] [address] [id number] [place] [address] Feb, [facility] [place] [facility] [address] [id number] [place] [address] Feb, [facility] [place] [facility] [address] [id number] [place] [address] Feb, [facility] [place] [facility] [address] [facility] [id number] [place] [address] Feb, [facility] [place] [facility] [address] [id number] [place] [address] January, [facility] [place] [facility] [address] [id number] [place] [address] January, [facility] [place] [facility] [address] [id number] [place] [address] January, [facility] [address] [id number] [place] [address] January, [facility] [address] [id number] [place] [address] January, [facility] [address] [id number] [place] [address] January, [facility] [address] [id number] [place] [address] January, [facility] [place] [facility] [address] [id number] [place] [address] January, [facility] [address] [id number] [place] [address] January, [facility] [address] [id number] [place] [address] January, [facility] [address] [id number] [place] [address] January, [facility] [address] [id number] [place] [address] January, [facility] [address] [id number] [place] [address] January, [facility] [place] [facility] [address] [id number] [place] [address] January, [facility] [address] [id number] [place] [address] January, [facility] [place] [facility] [address] [id number] [place] [address] January, [facility] [place] [facility] [address] [id number] [place] [address] January, [facility] [place] [facility] [address] [id number] [place] [address] January, [facility] [place] [facility] [address] [id number] [place] [address] January, [facility] [place] [facility] [address] [id number] [place] [address] January, [facility] [place] [facility] [address] [id number] [facility] [place] [address] January, [facility] [place] [facility] [address] [id number] [facility] [place] [facility] [address] January, [facility] [place] [facility] [address] [id number] [facility] [place] [address] January, [facility] [place] [facility] [address] [id number] [facility] [place] [facility] [address] Dec, [facility] [place] [facility] [address] [id number] [facility] [place] [address] Dec, [facility] [place] [facility] [address] [id number] [place] [address] Dec, [facility] [place] [facility] [address] [id number] [place] [address] Dec, [facility] [place] [facility] [address] [id number] [place] [address] Dec, [facility] [place] [facility] [address] [id number] [place] [address] Nov, [facility] [place] [facility] [address] [id number] [place] [address] Oct, [facility] [place] [facility] [address] [id number] [place] [address] Oct, [facility] [place] [facility] [address] [id number] [place] [address] Oct, [facility] [place] [facility] [address] [id number] [place] [address] Oct, [facility] [place] [facility] [address] [id number] [place] [address] Oct, [facility] [place] [facility] [address] [id number] [place] [address] Sep, [facility] [place] [facility] [address] [id number] [place] [address] Sep, [facility] [place] [facility] [address] [id number] [place] [address] Sep, [facility] [place] [facility] [address] [id number] [place] [address] Aug, [facility] [place] [facility] [address] [id number] [place] [address] Aug, [facility] [place] [facility] [id number] [place] [address] Aug, [facility] [place] [facility] [address] [id number] [place] [address] Aug, [facility] [place] [facility] [address] [id number] [place] [address] Jul, [facility] [place] [facility] [address] [id number] [place] [address] Jul, [facility] [place] [facility] [id number] [place] [address] Jul, [facility] [place] [facility] [id number] [place] [address] Jul, [facility] [place] [facility] [id number] [place] [address] Jul, [facility] [place] [facility] [id number] [place] [address] Jul, [facility] [place] [facility] [id number] [place] [address] Jun, [facility] [place] [facility] [address] [id number] [place] [address] Jun, [facility] [place] [facility] [address] [id number] [place] [address] Jun, [facility] [place] [facility] [id number] [place] [address] 10 Jun, 2012 [facility] [place] [facility] [address] [id number] [place] [address] 09 Jun, 2012 [facility] [place] [facility] [id number] [place] [address] Jun, [facility] [place] [facility] [address] [facility] [id number] [place] [address] Jun, [facility] [place] [facility] [address] [id number] [place] [address] Jun, [facility] [place] [facility] [address] [id number] [place] [address] Jun, [facility] [place] [facility] [address] [id number] [place] [address] Jun, [facility] [place] [facility] [address] [facility] [id number] [place] [address] May, [facility] [place] [facility] [address] [id number] [place] [address] May, [facility] [place] [facility] [address] [id number] [place] [address] May, [facility] [place] [facility] [address] [id number] [place] [address] Apr, [facility] [place] [facility] [address] [id number] [place] [address] Apr, [facility] [place] [facility] [address] [id number] [place] [address] Apr, [facility] [place] [facility] [address] [id number] [place] [address] Apr, [facility] [place] [facility] [address] [id number] [place] [address] Apr, [facility] [place] [facility] [address] [id number] [place] [address] Apr, [facility] [place] [facility] [address] [id number] [place] [address] Apr, [facility] [place] [facility] [address] [id number] [place] [address] Apr, [facility] [place] [facility] [address] [id number] [place] [address] Apr, [facility] [place] [facility] [address] [id number] [place] [address] Mar, [facility] [place] [facility] [address] [id number] [place] [address] Mar, [facility] [place] [facility] [address] [id number] [place] [address] Mar, [facility] [place] [facility] [address] [id number] [place] [address] Mar, [facility] [place] [facility] [address] [id number] [place] [address] Feb, [facility] [place] [facility] [address] [id number] [place] [address] Feb, [facility] [place] [facility] [address] [id number] [place] [address] Feb, [facility] [place] [facility] [address] [id number] [place] [address] January, [facility] [place] [facility] [address] [id number] [place] [address] January, [facility] [place] [facility] [address] [id number] [place] [address] January, [facility] [place] [facility] [address] [id number] [place] [address] January, [facility] [place] [facility] [address] [id number] [place] [address] January, [facility] [place] [facility] [address] [id number] [place] [address] Dec, [facility] [place] [facility] [address] [id number] [place] [address] Dec, [facility] [place] [facility] [address] [id number] [place] [address] 16 Dec, 2011 [facility] [place] [facility] [address] [id number] [place] [address] Oct, [facility] [place] [facility] [address] [id number] [place] [address] Oct, [facility] [place] [facility] [address] [id number] [place] [address] Oct, [facility] [address] [id number] [place] [address] Sep, [facility] [place] [facility] [address] [id number] [place] [address] Sep, [facility] [address] [id number] [place] [address] Aug, [facility] [place] [facility] [address] [id number] [place] [address] Jul, [facility] [place] [facility] [address] [id number] [place] [address] Jul, [facility] [place] [facility] [address] [id number] [place] [address] Mar, [facility] [address] [id number] [place] [address] Aug, [facility] [place] [facility] [address] [id number] [place] [address] Jul, [facility] [place] [facility] [address] [id number] [place] [address] Jul, [facility] [place] [facility] [address] [id number] [place] [address] Jul, [facility] [place] [facility] [address] [id number] [place] [address] Jul, [facility] [place] [facility] [address] [id number] [place] [address] 14 Jun, 2010 [facility] [place] [facility] [address] [id number] [place] [address] Jun, [facility] [place] [facility] [address] [id number] [place] [address] Apr, [facility] [place] [facility] [address] [id number] [place] [address] Aug, [facility] [place] [facility] [address] [id number] [place] [address] Jul, [facility] [address] [id number] [place] [address] Jul, [facility] [id number] [place] [address] Jul, [facility] [address] [id number] [place] [address] 23 Jun, 2009 [facility] [id number] [place] [address] 10 May, 2009 [facility] [id number] [place] [address] 14 Dec, 2008 [facility] [id number] [place] [address] Nov, [facility] [id number] [place] [address] 10 Oct, 2008 [facility] [id number] [place] [address] Aug, [facility] [id number] [place] [address] Aug, [facility] [id number] [place] [address] Jun, IMMUNIZATIONS No Known Immunizations SOCIAL HISTORY [...] x 3 day s 04/2012 Hospitalization History [facility] [place]- Right wrist injury 03/29/2018
--- OUTSIDE RECORDS SUMMARY | 2020-04-09 00:26 | XMS REPORT ---
Author Author Kateryna LAURENT Organization [facility] Address [address] [place] [address] Care Team Providers Care Seater Grinder Name Role Phone YAMILETH LAURENT Unavailable PROBLEMS Type Condition ICD9-CM Code [id number] Code Onset Dates Condition S tatus SNOMED Code Problem Irregular menses N92.6 Active 801 70522 Problem Migraine with aura and without status migrainosu s, not intractable G43.109 Active 9061884 Problem Uncontrolled type 2 diabetes mellitus with hyperglycemia E11.65 Active 456291659 Problem Morbid obesity due to excess calories E66.01 Active 233034216 Problem RLS (restless legs syndrome) G25.81 A ctive 68601100 Problem Morbid obesity E66.01 Active 66618 6002 ALLERGIES No Information ENCOUNTERS Encounter Location Date Diagnosis [facility] [address] [address] 15 Oct, 2019 [facility] [address] [facility] [id number] [place] [address] 09 Oct, 2019 Influenza J11.1 [facility] [address] [address] 16 Sep, 2019 [facility] [address] [address] 14 Sep, 2019 [facility] [address] [address] 14 Sep, 2019 [facility] [address] [address] 13 Sep, 2019 [facility] [address] [address] 10 Sep, 2019 Pneumonia of left lower lobe due to infe ctious organism J18.9 and Migraine with aura and without status migrainosus, not intractable G43.109 [place] [address] [address] Sep, [place] [address] [address] Sep, [place] [address] [address] Sep, [place] [address] [address] Sep, [place] [address] [address] Sep, Pneumonia of left lower lobe due to infe ctious organism J18.9 and Migraine with aura and without status migrainosus, not intractable G43.109 [place] [address] [address] Aug, Irregular menses N92.6 ; Well woman exam Z01.419 ; Pelvic cramping R10.2 and Left breast lump N63.20 [place] [address] [address] Aug, [place] [address] [address] Aug, Well woman exam Z01.419 ; Left breast nenita mp N63.20 ; Irregular menses N92.6 ; Encounter for immunization Z23 ; Pelvic cramping R10.2 and Screening for cervical cancer Z12.4 [place] [address] [address] Aug, [place] [address] [address] Aug, [place] [address] [address] Aug, [place] [address] [address] Jul, [place] [address] [address] Jun, [facility] [id number] [place] [address] Jun, [place] [address] [address] Jun, [facility] [id number] [place] [address] Jun, BMI 50.0-59.9, adult Z68.43 [place] [id number] [place] [address] Jun, [facility] [address] [facility] [id number] [address] [place] [address] May, Acute non-recurrent sinusiti s, unspecified location J01.90 ; Diarrhea, unspecified R19.7 ; Vomiting, unspecified R11.10 and Morbid obesity E66.01 [place] [id number] [place] [address] Apr, [place] [address] [address] Apr, Anemia due to other cause, not classifie d D64.89 and D-dimer, elevated R79.89 [place] [id number] [place] [address] Apr, [place] [address] [address] Apr, [place] [address] [address] Mar, Anemia due to other cause, not classifie d D64.89 and D-dimer, elevated R79.89 [place] [address] [address] Mar, Leg edema, right R60.0 ; High risk medic ation use Z79.899 and Morbid obesity E66.01 [place] [address] [address] Mar, BMI 50.0-59.9, adult Z68.43 [facility] [address] [address] Mar, [facility] [address] [address] January, Uncontrolled type 2 diabetes mellitus wi th hyperglycemia E11.65 ; RLS (restless legs syndrome) G25.81 and Morbid obesity E66.01 [facility] [address] [address] Oct, Lipoma of right lower extremity D17.23 [place] [address] [address] Oct, Lipoma of right lower extremity D17.23 [place] [address] [address] Sep, [facility] [address] [address] Sep, [facility] [address] [address] Sep, [facility] [address] [address] Sep, [facility] [address] [address] Sep, [facility] [address] [address] Aug, Uncontrolled type 2 diabetes mellitus wi th hyperglycemia E11.65 ; Morbid obesity due to excess calories E66.01 ; Lipoma of torso D17.1 and BMI 50.0-59.9, adult Z68.43 [facility] [address] [address] Jun, Encounter for immunization Z23 [facility] [address] [address] Jul, [facility] [address] [address] Jun, Encounter for immunization Z23 [facility] [id number] [place] [address] 30 May, 2016 [facility] [id number] [place] [address] Jun, Encounter for immunization Z23 [facility] [id number] [place] [address] 29 May, 2015 [facility] [id number] [place] [address] May, [facility] [id number] [place] [address] Apr, [facility] [id number] [place] [address] Feb, [facility] [id number] [place] [address] Feb, [facility] [id number] [place] [address] Feb, [facility] [id number] [place] [address] January, [facility] [id number] [place] [address] January, [facility] [id number] [place] [address] Dec, [facility] [id number] [place] [address] Dec, [facility] [id number] [place] [address] Nov, [facility] [id number] [place] [address] Nov, [facility] [id number] [place] [address] Nov, [facility] [id number] [place] [address] Nov, [facility] [address] [facility] [id number] [place] [address] Nov, [facility] [address] [facility] [id number] [facility] [place] [address] Nov, [facility] [address] [facility] [id number] [facility] [place] [address] Nov, [facility] [address] [id number] [facility] [place] [address] Oct, [facility] [address] [facility] [id number] [facility] [place] [address] Oct, [facility] [address] [id number] [place] [address] Oct, [facility] [address] [id number] [place] [address] Oct, [facility] [address] [id number] [place] [address] Oct, [facility] [address] [id number] [place] [address] Sep, [facility] [address] [id number] [place] [address] Sep, [facility] [address] [id number] [place] [address] Sep, [facility] [address] [id number] [place] [address] Sep, [facility] [address] [id number] [place] [address] Sep, [facility] [address] [id number] [place] [address] Sep, [facility] [address] [id number] [place] [address] Sep, [facility] [address] [id number] [place] [address] Sep, [facility] [address] [id number] [facility] [place] [address] 07 Sep, 2014 [facility] [address] [id number] [place] [address] Sep, [facility] [address] [id number] [place] [address] Aug, [facility] [address] [id number] [place] [address] Aug, [facility] [address] [id number] [place] [address] Aug, [facility] [address] [id number] [place] [address] Aug, [facility] [address] [id number] [place] [address] Aug, [facility] [address] [id number] [place] [address] Aug, [facility] [address] [id number] [place] [address] Aug, [facility] [address] [id number] [place] [address] Aug, [facility] [address] [id number] [place] [address] Aug, [facility] [address] [id number] [place] [address] Aug, [facility] [address] [id number] [place] [address] Aug, [facility] [address] [id number] [place] [address] Aug, [facility] [address] [id number] [place] [address] Aug, [facility] [address] [id number] [place] [address] Aug, [facility] [address] [id number] [place] [address] Aug, [facility] [address] [id number] [place] [address] 17 Aug, 2014 [facility] [address] [id number] [place] [address] 16 Aug, 2014 [facility] [address] [id number] [place] [address] 16 Aug, 2014 [facility] [address] [id number] [place] [address] Aug, [facility] [address] [id number] [place] [address] Aug, [facility] [address] [id number] [place] [address] 08 Aug, 2014 [facility] [address] [id number] [place] [address] 08 Aug, 2014 [facility] [address] [id number] [place] [address] 05 Aug, 2014 [facility] [address] [id number] [place] [address] 05 Aug, 2014 [facility] [address] [id number] [place] [address] Jul, [facility] [address] [id number] [place] [address] Jul, [facility] [address] [id number] [place] [address] Jun, [facility] [address] [id number] [place] [address] 27 Jun, 2014 [facility] [address] [id number] [place] [address] Jun, [facility] [id number] [place] [address] 17 Jun, 2014 [facility] [address] [id number] [place] [address] 15 Jun, 2014 [facility] [address] [id number] [place] [address] 15 Jun, 2014 [facility] [address] [facility] [id number] [place] [address] 14 Jun, 2014 [facility] [address] [facility] [id number] [place] [address] 14 Jun, 2014 [facility] [address] [id number] [place] [address] 13 Jun, 2014 [facility] [address] [facility] [id number] [place] [address] Jun, [facility] [address] [facility] [id number] [place] [address] Jun, [facility] [address] [id number] [place] [address] Jun, [facility] [address] [id number] [place] [address] Jun, [facility] [address] [id number] [place] [address] Jun, [facility] [address] [facility] [id number] [place] [address] 26 May, 2013 [facility] [address] [id number] [place] [address] 26 Sep, 2013 [facility] [address] [id number] [place] [address] 22 May, 2013 [facility] [address] [id number] [place] [address] 22 May, 2013 [facility] [address] [facility] [id number] [place] [address] 04 Sep, 2013 [facility] [address] [facility] [id number] [place] [address] 04 Sep, 2013 [facility] [address] [id number] [place] [address] 02 Sep, 2013 [facility] [address] [id number] [place] [address] 02 Sep, 2013 [facility] [address] [id number] [facility] [place] [address] Apr, [facility] [address] [id number] [facility] [place] [address] Apr, [facility] [address] [facility] [id number] [place] [address] Apr, [facility] [address] [id number] [place] [address] Apr, [facility] [address] [id number] [place] [address] Apr, [facility] [address] [id number] [place] [address] Apr, [facility] [address] [id number] [place] [address] Apr, [facility] [address] [id number] [place] [address] Apr, [facility] [address] [id number] [place] [address] Apr, [facility] [address] [id number] [place] [address] Mar, [facility] [address] [id number] [place] [address] Mar, [facility] [address] [id number] [place] [address] Mar, [facility] [address] [id number] [place] [address] Feb, [facility] [address] [id number] [place] [address] Feb, [facility] [address] [id number] [place] [address] Feb, [facility] [address] [facility] [id number] [place] [address] Feb, [facility] [address] [id number] [place] [address] Feb, [facility] [address] [facility] [id number] [place] [address] Feb, [facility] [address] [id number] [place] [address] Feb, [facility] [address] [id number] [place] [address] Feb, [facility] [address] [id number] [place] [address] Feb, [facility] [address] [facility] [id number] [place] [address] Feb, [facility] [address] [id number] [place] [address] Feb, [facility] [address] [id number] [place] [address] Feb, [facility] [address] [id number] [place] [address] Feb, [facility] [address] [id number] [place] [address] Feb, [facility] [address] [id number] [place] [address] Feb, [facility] [address] [id number] [place] [address] Feb, [facility] [address] [id number] [place] [address] January, [facility] [address] [id number] [place] [address] January, [facility] [address] [id number] [place] [address] January, [facility] [address] [id number] [place] [address] January, [facility] [address] [id number] [place] [address] January, [facility] [address] [id number] [place] [address] January, [facility] [address] [id number] [place] [address] January, [facility] [address] [facility] [id number] [facility] [place] [address] January, [facility] [address] [facility] [id number] [place] [address] January, [facility] [address] [id number] [facility] [place] [address] January, [facility] [address] [facility] [id number] [place] [address] January, [facility] [address] [id number] [facility] [place] [address] January, [facility] [address] [facility] [id number] [place] [address] January, [facility] [address] [id number] [place] [address] January, [facility] [address] [facility] [id number] [place] [address] January, [facility] [address] [id number] [place] [address] January, [facility] [address] [facility] [id number] [place] [address] January, [facility] [address] [id number] [place] [address] January, [facility] [address] [facility] [id number] [place] [address] January, [facility] [address] [id number] [place] [address] January, [facility] [address] [facility] [id number] [place] [address] January, [facility] [address] [id number] [place] [address] January, [facility] [address] [id number] [facility] [place] [address] January, [facility] [address] [id number] [place] [address] January, [facility] [address] [id number] [place] [address] January, [facility] [address] [id number] [place] [address] January, [facility] [address] [id number] [place] [address] Dec, [facility] [address] [id number] [place] [address] Dec, [facility] [address] [id number] [place] [address] Dec, [facility] [address] [id number] [place] [address] Dec, [facility] [address] [id number] [place] [address] Dec, [facility] [address] [id number] [place] [address] Dec, [facility] [address] [id number] [place] [address] Dec, [facility] [address] [id number] [place] [address] Dec, [facility] [address] [id number] [place] [address] Dec, [facility] [address] [id number] [place] [address] Dec, [facility] [address] [id number] [place] [address] Dec, [facility] [address] [id number] [place] [address] Dec, [facility] [address] [id number] [place] [address] Dec, [facility] [address] [id number] [place] [address] 14 Dec, 2013 [facility] [address] [id number] [place] [address] Dec, [facility] [address] [id number] [place] [address] Dec, [facility] [address] [id number] [place] [address] Dec, [facility] [address] [id number] [place] [address] Dec, [facility] [address] [id number] [place] [address] Dec, [facility] [address] [id number] [place] [address] Dec, [facility] [address] [id number] [place] [address] Dec, [facility] [address] [id number] [place] [address] Dec, [facility] [address] [id number] [place] [address] Nov, [facility] [address] [id number] [place] [address] Nov, [facility] [address] [id number] [place] [address] Nov, [facility] [address] [id number] [place] [address] Nov, [facility] [address] [id number] [place] [address] Nov, [facility] [address] [id number] [place] [address] 24 Nov, 2013 [facility] [address] [id number] [place] [address] Nov, [facility] [address] [id number] [place] [address] Nov, [facility] [address] [facility] [id number] [place] [address] Nov, [facility] [address] [facility] [id number] [facility] [place] [address] 18 Nov, 2013 [facility] [address] [id number] [place] [address] 18 Nov, 2013 [facility] [address] [id number] [facility] [place] [address] 18 Nov, 2013 [facility] [address] [facility] [id number] [place] [address] Nov, [facility] [address] [id number] [place] [address] 14 Nov, 2013 [facility] [address] [id number] [place] [address] Nov, [facility] [address] [id number] [place] [address] Nov, [facility] [place] [facility] [address] [id number] [place] [address] Oct, [facility] [place] [facility] [address] [id number] [place] [address] Oct, [facility] [place] [facility] [address] [id number] [place] [address] Oct, [facility] [place] [facility] [address] [id number] [place] [address] Oct, [facility] [place] [facility] [address] [id number] [place] [address] 24 Oct, 2013 [facility] [place] [facility] [address] [id number] [place] [address] Oct, [facility] [place] [facility] [address] [id number] [place] [address] Oct, [facility] [place] [facility] [address] [id number] [place] [address] Oct, [facility] [place] [facility] [address] [id number] [place] [address] Oct, [facility] [place] [facility] [address] [id number] [place] [address] Oct, [facility] [place] [facility] [address] [id number] [place] [address] Oct, [facility] [place] [facility] [address] [id number] [place] [address] Oct, [facility] [place] [facility] [address] [id number] [place] [address] Oct, [facility] [place] [facility] [address] [id number] [place] [address] Oct, [facility] [place] [facility] [address] [id number] [place] [address] Oct, [facility] [place] [facility] [address] [id number] [place] [address] Sep, [facility] [place] [facility] [address] [id number] [place] [address] Sep, [facility] [place] [facility] [address] [id number] [place] [address] Sep, [facility] [place] [facility] [address] [id number] [place] [address] Sep, [facility] [place] [facility] [address] [id number] [place] [address] Sep, [facility] [place] [facility] [address] [id number] [place] [address] Sep, [facility] [place] [facility] [address] [id number] [place] [address] Sep, [facility] [place] [facility] [address] [id number] [place] [address] Sep, [facility] [place] [facility] [address] [id number] [place] [address] Sep, [facility] [place] [facility] [address] [id number] [place] [address] Sep, [facility] [place] [facility] [address] [id number] [place] [address] Sep, [facility] [place] [facility] [address] [id number] [place] [address] Sep, [facility] [place] [facility] [address] [id number] [place] [address] Sep, [facility] [place] [facility] [address] [id number] [place] [address] Aug, [facility] [place] [facility] [address] [id number] [place] [address] Aug, [facility] [place] [facility] [address] [id number] [place] [address] Aug, [facility] [place] [facility] [address] [id number] [place] [address] Aug, [facility] [place] [facility] [address] [id number] [place] [address] Aug, [facility] [place] [facility] [address] [id number] [place] [address] Aug, [facility] [place] [facility] [address] [id number] [place] [address] 16 Aug, 2013 [facility] [place] [facility] [address] [id number] [place] [address] 16 Aug, 2013 [facility] [place] [facility] [address] [id number] [place] [address] Aug, [facility] [place] [facility] [address] [id number] [place] [address] Aug, [facility] [place] [facility] [address] [id number] [place] [address] 10 Aug, 2013 [facility] [place] [facility] [address] [id number] [place] [address] 10 Aug, 2013 [facility] [place] [facility] [address] [id number] [place] [address] Aug, [facility] [place] [facility] [address] [id number] [place] [address] 02 Aug, 2012 [facility] [place] [facility] [address] [id number] [place] [address] Jul, [facility] [place] [facility] [address] [id number] [place] [address] 19 Jul, 2013 [facility] [place] [facility] [address] [id number] [place] [address] 18 Jul, 2013 [facility] [place] [facility] [address] [id number] [place] [address] 18 Jul, 2013 [facility] [place] [facility] [address] [id number] [place] [address] 14 Jul, 2013 [facility] [place] [facility] [address] [id number] [place] [address] 14 Jul, 2013 [facility] [place] [facility] [address] [id number] [place] [address] 14 Jul, 2013 [facility] [place] [facility] [address] [id number] [place] [address] 14 Jul, 2013 [facility] [place] [facility] [address] [id number] [place] [address] 07 Jul, 2013 [facility] [place] [facility] [address] [id number] [place] [address] 07 Jul, 2013 [facility] [place] [facility] [address] [id number] [place] [address] 06 Jul, 2013 [facility] [place] [facility] [address] [id number] [place] [address] 06 Jul, 2013 [facility] [place] [facility] [address] [id number] [place] [address] 05 Jul, 2013 [facility] [place] [facility] [address] [id number] [place] [address] Jul, [facility] [place] [facility] [address] [id number] [place] [address] Jun, [facility] [place] [facility] [address] [id number] [place] [address] Jun, [facility] [place] [facility] [address] [id number] [place] [address] 15 Jun, 2012 [facility] [place] [facility] [address] [id number] [place] [address] 15 Jun, 2012 [facility] [place] [facility] [address] [id number] [place] [address] 14 Jun, 2012 [facility] [place] [facility] [address] [id number] [place] [address] 24 Sep, 2012 [facility] [place] [facility] [address] [id number] [place] [address] 20 Sep, 2012 [facility] [place] [facility] [address] [id number] [place] [address] 20 Sep, 2012 [facility] [place] [facility] [address] [id number] [place] [address] 20 Sep, 2012 [facility] [place] [facility] [address] [id number] [place] [address] 19 Sep, 2012 [facility] [place] [facility] [address] [id number] [place] [address] 13 Sep, 2012 [facility] [place] [facility] [address] [id number] [place] [address] 12 Sep, 2012 [facility] [place] [facility] [address] [id number] [place] [address] 12 Sep, 2012 [facility] [place] [facility] [address] [id number] [place] [address] 11 Sep, 2012 [facility] [place] [facility] [address] [id number] [place] [address] 11 Sep, 2012 [facility] [place] [facility] [address] [id number] [place] [address] 11 Sep, 2012 [facility] [place] [facility] [address] [id number] [place] [address] 09 Sep, 2012 [facility] [place] [facility] [address] [id number] [place] [address] 05 Sep, 2012 [facility] [place] [facility] [address] [id number] [place] [address] May, [facility] [place] [facility] [address] [id number] [facility] [place] [address] May, [facility] [place] [facility] [address] [facility] [id number] [facility] [place] [address] Apr, [facility] [place] [facility] [address] [id number] [facility] [place] [address] Apr, [facility] [place] [facility] [address] [id number] [place] [address] Apr, [facility] [place] [facility] [address] [facility] [id number] [facility] [place] [address] Apr, [facility] [place] [facility] [address] [id number] [facility] [place] [address] Apr, [facility] [place] [facility] [address] [id number] [facility] [place] [address] Apr, [facility] [place] [facility] [address] [id number] [place] [address] Apr, [facility] [place] [facility] [address] [id number] [facility] [place] [address] Apr, [facility] [place] [facility] [address] [id number] [place] [address] Apr, [facility] [place] [facility] [address] [id number] [place] [address] Mar, [facility] [place] [facility] [address] [id number] [place] [address] Mar, [facility] [place] [facility] [address] [id number] [facility] [place] [address] Mar, [facility] [place] [facility] [address] [id number] [place] [address] Mar, [facility] [place] [facility] [address] [id number] [place] [address] Mar, [facility] [place] [facility] [address] [id number] [place] [address] Mar, [facility] [place] [facility] [address] [id number] [facility] [place] [address] Mar, [facility] [place] [facility] [address] [id number] [place] [address] Mar, [facility] [place] [facility] [address] [facility] [id number] [place] [address] Mar, [facility] [place] [facility] [address] [id number] [place] [address] Mar, [facility] [place] [facility] [address] [facility] [id number] [place] [address] Mar, [facility] [place] [facility] [address] [facility] [id number] [place] [address] Feb, [facility] [place] [facility] [address] [id number] [place] [address] Feb, [facility] [place] [facility] [address] [id number] [place] [address] Feb, [facility] [place] [facility] [address] [id number] [place] [address] Feb, [facility] [place] [facility] [address] [id number] [place] [address] Feb, [facility] [place] [facility] [address] [id number] [place] [address] Feb, [facility] [place] [facility] [address] [id number] [place] [address] Feb, [facility] [place] [facility] [address] [id number] [place] [address] Feb, [facility] [place] [facility] [address] [facility] [id number] [place] [address] Feb, [facility] [place] [facility] [address] [id number] [place] [address] January, [facility] [place] [facility] [address] [id number] [place] [address] January, [facility] [place] [facility] [address] [id number] [place] [address] January, [facility] [address] [id number] [place] [address] January, [facility] [address] [id number] [place] [address] January, [facility] [address] [id number] [place] [address] January, [facility] [address] [id number] [place] [address] January, [facility] [place] [facility] [address] [id number] [place] [address] January, [facility] [address] [id number] [place] [address] January, [facility] [address] [id number] [place] [address] January, [facility] [address] [id number] [place] [address] January, [facility] [address] [id number] [place] [address] January, [facility] [address] [id number] [place] [address] January, [facility] [place] [facility] [address] [id number] [place] [address] January, [facility] [address] [id number] [place] [address] January, [facility] [place] [facility] [address] [id number] [place] [address] January, [facility] [place] [facility] [address] [id number] [place] [address] January, [facility] [place] [facility] [address] [id number] [place] [address] January, [facility] [place] [facility] [address] [id number] [place] [address] January, [facility] [place] [facility] [address] [id number] [place] [address] January, [facility] [place] [facility] [address] [id number] [facility] [place] [address] January, [facility] [place] [facility] [address] [id number] [facility] [place] [address] January, [facility] [place] [facility] [address] [id number] [facility] [place] [address] January, [facility] [place] [facility] [address] [id number] [facility] [place] [address] Dec, [facility] [place] [facility] [address] [id number] [facility] [place] [address] Dec, [facility] [place] [facility] [address] [id number] [place] [address] Dec, [facility] [place] [facility] [address] [id number] [place] [address] Dec, [facility] [place] [facility] [address] [id number] [place] [address] Dec, [facility] [place] [facility] [address] [id number] [place] [address] Nov, [facility] [place] [facility] [address] [id number] [place] [address] Oct, [facility] [place] [facility] [address] [id number] [place] [address] Oct, [facility] [place] [facility] [address] [id number] [place] [address] Oct, [facility] [place] [facility] [address] [id number] [place] [address] Oct, [facility] [place] [facility] [address] [id number] [place] [address] Oct, [facility] [place] [facility] [address] [id number] [place] [address] Sep, [facility] [place] [facility] [address] [id number] [place] [address] Sep, [facility] [place] [facility] [address] [id number] [place] [address] Sep, [facility] [place] [facility] [address] [id number] [place] [address] Aug, [facility] [place] [facility] [address] [id number] [place] [address] Aug, [facility] [place] [facility] [id number] [place] [address] Aug, [facility] [place] [facility] [address] [id number] [place] [address] Aug, [facility] [place] [facility] [address] [id number] [place] [address] Jul, [facility] [place] [facility] [address] [id number] [place] [address] Jul, [facility] [place] [facility] [id number] [place] [address] Jul, [facility] [place] [facility] [id number] [place] [address] Jul, [facility] [place] [facility] [id number] [place] [address] Jul, [facility] [place] [facility] [id number] [place] [address] Jul, [facility] [place] [facility] [id number] [place] [address] Jun, [facility] [place] [facility] [address] [id number] [place] [address] Jun, [facility] [place] [facility] [address] [id number] [place] [address] Jun, [facility] [place] [facility] [id number] [place] [address] 10 Jun, 2012 [facility] [place] [facility] [address] [id number] [place] [address] 09 Jun, 2012 [facility] [place] [facility] [id number] [place] [address] Jun, [facility] [place] [facility] [address] [facility] [id number] [place] [address] Jun, [facility] [place] [facility] [address] [id number] [place] [address] Jun, [facility] [place] [facility] [address] [id number] [place] [address] Jun, [facility] [place] [facility] [address] [id number] [place] [address] Jun, [facility] [place] [facility] [address] [facility] [id number] [place] [address] May, [facility] [place] [facility] [address] [id number] [place] [address] May, [facility] [place] [facility] [address] [id number] [place] [address] May, [facility] [place] [facility] [address] [id number] [place] [address] Apr, [facility] [place] [address] [id number] [place] [address] Apr, [facility] [address] [id number] [place] [address] Apr, [facility] [address] [id number] [place] [address] Apr, [facility] [address] [id number] [place] [address] Apr, [facility] [address] [id number] [place] [address] Apr, [facility] [address] [id number] [place] [address] Apr, [facility] [address] [id number] [place] [address] Apr, [facility] [address] [id number] [place] [address] Apr, [facility] [address] [id number] [place] [address] Mar, [facility] [address] [id number] [place] [address] Mar, [facility] [address] [id number] [place] [address] Mar, [facility] [address] [id number] [place] [address] Mar, [facility] [address] [id number] [place] [address] Feb, [facility] [address] [id number] [place] [address] Feb, [facility] [address] [id number] [place] [address] Feb, [facility] [address] [id number] [place] [address] January, [facility] [address] [id number] [place] [address] January, [facility] [address] [id number] [place] [address] January, [facility] [address] [id number] [place] [address] January, [facility] [address] [id number] [place] [address] January, [facility] [address] [id number] [place] [address] Dec, [facility] [address] [id number] [place] [address] Dec, [facility] [address] [id number] [place] [address] 16 Dec, 2011 [facility] [address] [id number] [place] [address] Oct, [facility] [address] [id number] [place] [address] Oct, [facility] [address] [id number] [place] [address] Oct, [facility] [address] [id number] [place] [address] Sep, [facility] [address] [id number] [place] [address] Sep, [facility] [address] [id number] [place] [address] Aug, [facility] [address] [id number] [place] [address] Jul, [facility] [address] [id number] [place] [address] Jul, [facility] [address] [id number] [place] [address] Mar, [facility] [address] [id number] [place] [address] Aug, [facility] [address] [id number] [place] [address] Jul, [facility] [address] [id number] [place] [address] Jul, [facility] [address] [id number] [place] [address] Jul, [facility] [address] [id number] [place] [address] Jul, [facility] [address] [id number] [place] [address] 14 Jun, 2010 [facility] [address] [id number] [place] [address] Jun, [facility] [address] [id number] [place] [address] Apr, [facility] [address] [id number] [place] [address] Aug, [facility] [address] [id number] [place] [address] Jul, [facility] [address] [id number] [place] [address] Jul, [facility] [id number] [place] [address] Jul, [facility] [address] [id number] [place] [address] 23 Jun, 2009 [facility] [id number] [place] [address] 10 May, 2009 [facility] [id number] [place] [address] 14 Dec, 2008 [facility] [id number] [place] [address] Nov, [facility] [id number] [place] [address] 10 Oct, 2008 [facility] [id number] [place] [address] Aug, [facility] [id number] [place] [address] Aug, [facility] [id number] [place] [address] Jun, IMMUNIZATIONS No Known Immunizations SOCIAL HISTORY [...] x 3 day s 04/2012 Hospitalization History [facility] [place]- Right wrist injury 03/29/2018
--- OUTSIDE RECORDS SUMMARY | 2020-04-09 00:27 | XMS REPORT ---
Author Author Kateryna LAURENT Organization [facility] Address [address] [place] [address] Care Team Providers Care Inspector Line Name Role Phone YAMILETH LAURENT Unavailable PROBLEMS Type Condition ICD9-CM Code [id number] Code Onset Dates Condition S tatus SNOMED Code Problem Irregular menses N92.6 Active 801 87750 Problem Migraine with aura and without status migrainosu s, not intractable G43.109 Active 6788193 Problem Uncontrolled type 2 diabetes mellitus with hyperglycemia E11.65 Active 034714962 Problem Morbid obesity due to excess calories E66.01 Active 807122095 Problem RLS (restless legs syndrome) G25.81 A ctive 37831352 Problem Morbid obesity E66.01 Active 54018 6002 ALLERGIES No Information ENCOUNTERS Encounter Location Date Diagnosis [facility] [address] [address] 15 Oct, 2019 [facility] [address] [facility] [id number] [address] [address] 09 Oct, 2019 Influenza J11.1 [facility] [address] [address] 16 Sep, 2019 [facility] [address] [address] 14 Sep, 2019 [facility] [address] [address] 14 Sep, 2019 [facility] [address] [address] 13 Sep, 2019 [facility] [address] [address] 10 Sep, 2019 Pneumonia of left lower lobe due to infe ctious organism J18.9 and Migraine with aura and without status migrainosus, not intractable G43.109 [place] [address] [address] Sep, [place] [address] [address] Sep, [place] [address] [address] Sep, [place] [address] [address] Sep, [place] [address] [address] Sep, Pneumonia of left lower lobe due to infe ctious organism J18.9 and Migraine with aura and without status migrainosus, not intractable G43.109 [place] [address] [address] Aug, Irregular menses N92.6 ; Well woman exam Z01.419 ; Pelvic cramping R10.2 and Left breast lump N63.20 [place] [address] [address] Aug, [place] [address] [address] Aug, Well woman exam Z01.419 ; Left breast nenita mp N63.20 ; Irregular menses N92.6 ; Encounter for immunization Z23 ; Pelvic cramping R10.2 and Screening for cervical cancer Z12.4 [place] [address] [address] Aug, [place] [address] [address] Aug, [place] [address] [address] Aug, [place] [address] [address] Jul, [place] [address] [address] Jun, [facility] [id number] [place] [address] Jun, [place] [address] [address] Jun, [facility] [id number] [place] [address] Jun, BMI 50.0-59.9, adult Z68.43 [place] [id number] [place] [address] Jun, [facility] [address] [facility] [id number] [address] [place] [address] May, Acute non-recurrent sinusiti s, unspecified location J01.90 ; Diarrhea, unspecified R19.7 ; Vomiting, unspecified R11.10 and Morbid obesity E66.01 [place] [id number] [place] [address] Apr, [place] [address] [address] Apr, Anemia due to other cause, not classifie d D64.89 and D-dimer, elevated R79.89 [place] [id number] [place] [address] Apr, [place] [address] [address] Apr, [place] [address] [address] Mar, Anemia due to other cause, not classifie d D64.89 and D-dimer, elevated R79.89 [place] [address] [address] Mar, Leg edema, right R60.0 ; High risk medic ation use Z79.899 and Morbid obesity E66.01 [place] [address] [address] Mar, BMI 50.0-59.9, adult Z68.43 [facility] [address] [address] Mar, [facility] [address] [address] January, Uncontrolled type 2 diabetes mellitus wi th hyperglycemia E11.65 ; RLS (restless legs syndrome) G25.81 and Morbid obesity E66.01 [facility] [address] [address] Oct, Lipoma of right lower extremity D17.23 [place] [address] [address] Oct, Lipoma of right lower extremity D17.23 [place] [address] [address] Sep, [facility] [address] [address] Sep, [facility] [address] [address] Sep, [facility] [address] [address] Sep, [facility] [address] [address] Sep, [facility] [address] [address] Aug, Uncontrolled type 2 diabetes mellitus wi th hyperglycemia E11.65 ; Morbid obesity due to excess calories E66.01 ; Lipoma of torso D17.1 and BMI 50.0-59.9, adult Z68.43 [facility] [address] [address] Jun, Encounter for immunization Z23 [facility] [address] [address] Jul, [facility] [address] [address] Jun, Encounter for immunization Z23 [facility] [id number] [place] [address] 30 May, 2016 [facility] [id number] [place] [address] Jun, Encounter for immunization Z23 [facility] [id number] [place] [address] 29 May, 2015 [facility] [id number] [place] [address] May, [facility] [id number] [place] [address] Apr, [facility] [id number] [place] [address] Feb, [facility] [id number] [place] [address] Feb, [facility] [id number] [place] [address] Feb, [facility] [id number] [place] [address] January, [facility] [id number] [place] [address] January, [facility] [id number] [place] [address] Dec, [facility] [id number] [place] [address] Dec, [facility] [id number] [place] [address] Nov, [facility] [id number] [place] [address] Nov, [facility] [id number] [place] [address] Nov, [facility] [id number] [place] [address] Nov, [facility] [address] [facility] [id number] [place] [address] Nov, [facility] [address] [facility] [id number] [place] [address] Nov, [facility] [address] [facility] [id number] [place] [address] Nov, [facility] [address] [id number] [place] [address] Oct, [facility] [address] [facility] [id number] [place] [address] Oct, [facility] [address] [id number] [place] [address] Oct, [facility] [address] [id number] [place] [address] Oct, [facility] [address] [id number] [place] [address] Oct, [facility] [address] [id number] [place] [address] Sep, [facility] [address] [id number] [place] [address] Sep, [facility] [address] [id number] [place] [address] Sep, [facility] [address] [id number] [place] [address] Sep, [facility] [address] [id number] [place] [address] Sep, [facility] [address] [id number] [place] [address] Sep, [facility] [address] [id number] [place] [address] Sep, [facility] [address] [id number] [place] [address] Sep, [facility] [address] [id number] [place] [address] 07 Sep, 2014 [facility] [address] [id number] [place] [address] Sep, [facility] [address] [id number] [place] [address] Aug, [facility] [address] [id number] [place] [address] Aug, [facility] [address] [id number] [place] [address] Aug, [facility] [address] [id number] [place] [address] Aug, [facility] [address] [id number] [place] [address] Aug, [facility] [address] [id number] [place] [address] Aug, [facility] [address] [id number] [place] [address] Aug, [facility] [address] [id number] [place] [address] Aug, [facility] [address] [id number] [place] [address] Aug, [facility] [address] [id number] [place] [address] Aug, [facility] [address] [id number] [place] [address] Aug, [facility] [address] [id number] [place] [address] Aug, [facility] [address] [id number] [place] [address] Aug, [facility] [address] [id number] [place] [address] Aug, [facility] [address] [id number] [place] [address] Aug, [facility] [address] [id number] [place] [address] 17 Aug, 2014 [facility] [address] [id number] [place] [address] 16 Aug, 2014 [facility] [address] [id number] [place] [address] 16 Aug, 2014 [facility] [address] [id number] [place] [address] Aug, [facility] [address] [id number] [place] [address] Aug, [facility] [address] [id number] [place] [address] 08 Aug, 2014 [facility] [address] [id number] [place] [address] 08 Aug, 2014 [facility] [address] [id number] [place] [address] 05 Aug, 2014 [facility] [address] [id number] [place] [address] 05 Aug, 2014 [facility] [address] [id number] [place] [address] Jul, [facility] [address] [id number] [place] [address] Jul, [facility] [address] [id number] [place] [address] Jun, [facility] [address] [id number] [place] [address] 27 Jun, 2014 [facility] [address] [id number] [place] [address] Jun, [facility] [id number] [place] [address] 17 Jun, 2014 [facility] [address] [id number] [place] [address] 15 Jun, 2014 [facility] [address] [id number] [place] [address] 15 Jun, 2014 [facility] [address] [facility] [id number] [place] [address] 14 Jun, 2014 [facility] [address] [facility] [id number] [place] [address] 14 Jun, 2014 [facility] [address] [id number] [place] [address] 13 Jun, 2014 [facility] [address] [facility] [id number] [place] [address] Jun, [facility] [address] [facility] [id number] [place] [address] Jun, [facility] [address] [id number] [place] [address] Jun, [facility] [address] [id number] [place] [address] Jun, [facility] [address] [id number] [place] [address] Jun, [facility] [address] [facility] [id number] [place] [address] 26 May, 2013 [facility] [address] [id number] [place] [address] 26 Sep, 2013 [facility] [address] [id number] [place] [address] 22 May, 2013 [facility] [address] [id number] [place] [address] 22 May, 2013 [facility] [address] [facility] [id number] [place] [address] 04 Sep, 2013 [facility] [address] [facility] [id number] [place] [address] 04 Sep, 2013 [facility] [address] [id number] [place] [address] 02 Sep, 2013 [facility] [address] [id number] [place] [address] 02 Sep, 2013 [facility] [address] [id number] [place] [address] Apr, [facility] [address] [id number] [place] [address] Apr, [facility] [address] [facility] [id number] [place] [address] Apr, [facility] [address] [id number] [place] [address] Apr, [facility] [address] [id number] [place] [address] Apr, [facility] [address] [id number] [place] [address] Apr, [facility] [address] [id number] [place] [address] Apr, [facility] [address] [id number] [place] [address] Apr, [facility] [address] [id number] [place] [address] Apr, [facility] [address] [id number] [place] [address] Mar, [facility] [address] [id number] [place] [address] Mar, [facility] [address] [id number] [place] [address] Mar, [facility] [address] [id number] [place] [address] Feb, [facility] [address] [id number] [place] [address] Feb, [facility] [address] [id number] [place] [address] Feb, [facility] [address] [facility] [id number] [place] [address] Feb, [facility] [address] [id number] [place] [address] Feb, [facility] [address] [facility] [id number] [place] [address] Feb, [facility] [address] [id number] [place] [address] Feb, [facility] [address] [id number] [place] [address] Feb, [facility] [address] [id number] [place] [address] Feb, [facility] [address] [facility] [id number] [place] [address] Feb, [facility] [address] [id number] [place] [address] Feb, [facility] [address] [id number] [place] [address] Feb, [facility] [address] [id number] [place] [address] Feb, [facility] [address] [id number] [place] [address] Feb, [facility] [address] [id number] [place] [address] Feb, [facility] [address] [id number] [place] [address] Feb, [facility] [address] [id number] [place] [address] January, [facility] [address] [id number] [place] [address] January, [facility] [address] [id number] [place] [address] January, [facility] [address] [id number] [place] [address] January, [facility] [address] [id number] [place] [address] January, [facility] [address] [id number] [place] [address] January, [facility] [address] [id number] [place] [address] January, [facility] [address] [facility] [id number] [place] [address] January, [facility] [address] [facility] [id number] [place] [address] January, [facility] [address] [id number] [place] [address] January, [facility] [address] [facility] [id number] [place] [address] January, [facility] [address] [id number] [place] [address] January, [facility] [address] [facility] [id number] [place] [address] January, [facility] [address] [id number] [place] [address] January, [facility] [address] [facility] [id number] [place] [address] January, [facility] [address] [id number] [place] [address] January, [facility] [address] [facility] [id number] [place] [address] January, [facility] [address] [id number] [place] [address] January, [facility] [address] [facility] [id number] [place] [address] January, [facility] [address] [id number] [place] [address] January, [facility] [address] [facility] [id number] [place] [address] January, [facility] [address] [id number] [place] [address] January, [facility] [address] [id number] [place] [address] January, [facility] [address] [id number] [place] [address] January, [facility] [address] [id number] [place] [address] January, [facility] [address] [id number] [place] [address] January, [facility] [address] [id number] [place] [address] Dec, [facility] [address] [id number] [place] [address] Dec, [facility] [address] [id number] [place] [address] Dec, [facility] [address] [id number] [place] [address] Dec, [facility] [address] [id number] [place] [address] Dec, [facility] [address] [id number] [place] [address] Dec, [facility] [address] [id number] [place] [address] Dec, [facility] [address] [id number] [place] [address] Dec, [facility] [address] [id number] [place] [address] Dec, [facility] [address] [id number] [place] [address] Dec, [facility] [address] [id number] [place] [address] Dec, [facility] [address] [id number] [place] [address] Dec, [facility] [address] [id number] [place] [address] Dec, [facility] [address] [id number] [place] [address] 14 Dec, 2013 [facility] [address] [id number] [place] [address] Dec, [facility] [address] [id number] [place] [address] Dec, [facility] [address] [id number] [place] [address] Dec, [facility] [address] [id number] [place] [address] Dec, [facility] [address] [id number] [place] [address] Dec, [facility] [address] [id number] [place] [address] Dec, [facility] [address] [id number] [place] [address] Dec, [facility] [address] [id number] [place] [address] Dec, [facility] [address] [id number] [place] [address] Nov, [facility] [address] [id number] [place] [address] Nov, [facility] [address] [id number] [place] [address] Nov, [facility] [address] [id number] [place] [address] Nov, [facility] [address] [id number] [place] [address] Nov, [facility] [address] [id number] [place] [address] 24 Nov, 2013 [facility] [address] [id number] [place] [address] Nov, [facility] [address] [id number] [place] [address] Nov, [facility] [address] [facility] [id number] [place] [address] Nov, [facility] [address] [facility] [id number] [place] [address] 18 Nov, 2013 [facility] [address] [id number] [place] [address] 18 Nov, 2013 [facility] [address] [id number] [place] [address] 18 Nov, 2013 [facility] [address] [facility] [id number] [place] [address] Nov, [facility] [address] [id number] [place] [address] 14 Nov, 2013 [facility] [address] [id number] [place] [address] Nov, [facility] [address] [id number] [place] [address] Nov, [facility] [address] [id number] [place] [address] Oct, [facility] [address] [id number] [place] [address] Oct, [facility] [address] [id number] [place] [address] Oct, [facility] [address] [id number] [place] [address] Oct, [facility] [address] [id number] [place] [address] 24 Oct, 2013 [facility] [address] [id number] [place] [address] Oct, [facility] [address] [id number] [place] [address] Oct, [facility] [address] [id number] [place] [address] Oct, [facility] [address] [id number] [place] [address] Oct, [facility] [address] [id number] [place] [address] Oct, [facility] [address] [id number] [place] [address] Oct, [facility] [address] [id number] [place] [address] Oct, [facility] [address] [id number] [place] [address] Oct, [facility] [address] [id number] [place] [address] Oct, [facility] [address] [id number] [place] [address] Oct, [facility] [address] [id number] [place] [address] Sep, [facility] [address] [id number] [place] [address] Sep, [facility] [address] [id number] [place] [address] Sep, [facility] [address] [id number] [place] [address] Sep, [facility] [place] [facility] [address] [id number] [place] [address] Sep, [facility] [place] [facility] [address] [id number] [place] [address] Sep, [facility] [place] [facility] [address] [id number] [place] [address] Sep, [facility] [place] [facility] [address] [id number] [place] [address] Sep, [facility] [place] [facility] [address] [id number] [place] [address] Sep, [facility] [place] [facility] [address] [id number] [place] [address] Sep, [facility] [place] [facility] [address] [id number] [place] [address] Sep, [facility] [place] [facility] [address] [id number] [place] [address] Sep, [facility] [place] [facility] [address] [id number] [place] [address] Sep, [facility] [place] [facility] [address] [id number] [place] [address] Aug, [facility] [place] [facility] [address] [id number] [place] [address] Aug, [facility] [place] [facility] [address] [id number] [place] [address] Aug, [facility] [place] [facility] [address] [id number] [place] [address] Aug, [facility] [place] [facility] [address] [id number] [place] [address] Aug, [facility] [place] [facility] [address] [id number] [place] [address] Aug, [facility] [place] [facility] [address] [id number] [place] [address] 16 Aug, 2013 [facility] [place] [facility] [address] [id number] [place] [address] 16 Aug, 2013 [facility] [place] [facility] [address] [id number] [place] [address] Aug, [facility] [place] [facility] [address] [id number] [place] [address] Aug, [facility] [place] [facility] [address] [id number] [place] [address] 10 Aug, 2013 [facility] [place] [facility] [address] [id number] [place] [address] 10 Aug, 2013 [facility] [place] [facility] [address] [id number] [place] [address] Aug, [facility] [place] [facility] [address] [id number] [place] [address] 02 Aug, 2012 [facility] [place] [facility] [address] [id number] [place] [address] Jul, [facility] [place] [facility] [address] [id number] [place] [address] 19 Jul, 2013 [facility] [place] [facility] [address] [id number] [place] [address] 18 Jul, 2013 [facility] [place] [facility] [address] [id number] [place] [address] 18 Jul, 2013 [facility] [place] [facility] [address] [id number] [place] [address] 14 Jul, 2013 [facility] [place] [facility] [address] [id number] [place] [address] 14 Jul, 2013 [facility] [place] [facility] [address] [id number] [place] [address] 14 Jul, 2013 [facility] [place] [facility] [address] [id number] [place] [address] 14 Jul, 2013 [facility] [place] [facility] [address] [id number] [place] [address] 07 Jul, 2013 [facility] [place] [facility] [address] [id number] [place] [address] 07 Jul, 2013 [facility] [place] [facility] [address] [id number] [place] [address] 06 Jul, 2013 [facility] [place] [facility] [address] [id number] [place] [address] 06 Jul, 2013 [facility] [place] [facility] [address] [id number] [place] [address] 05 Jul, 2013 [facility] [place] [facility] [address] [id number] [place] [address] Jul, [facility] [place] [facility] [address] [id number] [place] [address] Jun, [facility] [place] [facility] [address] [id number] [place] [address] Jun, [facility] [place] [facility] [address] [id number] [place] [address] 15 Jun, 2012 [facility] [place] [facility] [address] [id number] [place] [address] 15 Jun, 2012 [facility] [place] [facility] [address] [id number] [place] [address] 14 Jun, 2012 [facility] [place] [facility] [address] [id number] [place] [address] 24 Sep, 2012 [facility] [place] [facility] [address] [id number] [place] [address] 20 Sep, 2012 [facility] [place] [facility] [address] [id number] [place] [address] 20 Sep, 2012 [facility] [place] [facility] [address] [id number] [place] [address] 20 Sep, 2012 [facility] [place] [facility] [address] [id number] [place] [address] 19 Sep, 2012 [facility] [place] [facility] [address] [id number] [place] [address] 13 Sep, 2012 [facility] [place] [facility] [address] [id number] [place] [address] 12 Sep, 2012 [facility] [place] [facility] [address] [id number] [place] [address] 12 Sep, 2012 [facility] [place] [facility] [address] [id number] [place] [address] 11 Sep, 2012 [facility] [place] [facility] [address] [id number] [place] [address] 11 Sep, 2012 [facility] [place] [facility] [address] [id number] [place] [address] 11 Sep, 2012 [facility] [place] [facility] [address] [id number] [place] [address] 09 Sep, 2012 [facility] [place] [facility] [address] [id number] [place] [address] 05 Sep, 2012 [facility] [place] [facility] [address] [id number] [place] [address] May, [facility] [place] [facility] [address] [id number] [place] [address] May, [facility] [place] [facility] [address] [facility] [id number] [place] [address] Apr, [facility] [place] [facility] [address] [id number] [place] [address] Apr, [facility] [place] [facility] [address] [id number] [place] [address] Apr, [facility] [place] [facility] [address] [facility] [id number] [place] [address] Apr, [facility] [place] [facility] [address] [id number] [place] [address] Apr, [facility] [place] [facility] [address] [id number] [place] [address] Apr, [facility] [place] [facility] [address] [id number] [place] [address] Apr, [facility] [place] [facility] [address] [id number] [place] [address] Apr, [facility] [place] [facility] [address] [id number] [place] [address] Apr, [facility] [place] [facility] [address] [id number] [place] [address] Mar, [facility] [place] [facility] [address] [id number] [place] [address] Mar, [facility] [place] [facility] [address] [id number] [place] [address] Mar, [facility] [place] [facility] [address] [id number] [place] [address] Mar, [facility] [place] [facility] [address] [id number] [place] [address] Mar, [facility] [place] [facility] [address] [id number] [place] [address] Mar, [facility] [place] [facility] [address] [id number] [place] [address] Mar, [facility] [place] [facility] [address] [id number] [place] [address] Mar, [facility] [place] [facility] [address] [facility] [id number] [place] [address] Mar, [facility] [place] [facility] [address] [id number] [place] [address] Mar, [facility] [place] [facility] [address] [facility] [id number] [place] [address] Mar, [facility] [place] [facility] [address] [facility] [id number] [place] [address] Feb, [facility] [place] [facility] [address] [id number] [place] [address] Feb, [facility] [place] [facility] [address] [id number] [place] [address] Feb, [facility] [place] [facility] [address] [id number] [place] [address] Feb, [facility] [place] [facility] [address] [id number] [place] [address] Feb, [facility] [place] [facility] [address] [id number] [place] [address] Feb, [facility] [place] [facility] [address] [id number] [place] [address] Feb, [facility] [place] [facility] [address] [id number] [place] [address] Feb, [facility] [place] [facility] [address] [facility] [id number] [place] [address] Feb, [facility] [place] [facility] [address] [id number] [place] [address] January, [facility] [place] [facility] [address] [id number] [place] [address] January, [facility] [place] [facility] [address] [id number] [place] [address] January, [facility] [address] [id number] [place] [address] January, [facility] [address] [id number] [place] [address] January, [facility] [address] [id number] [place] [address] January, [facility] [address] [id number] [place] [address] January, [facility] [place] [facility] [address] [id number] [place] [address] January, [facility] [address] [id number] [place] [address] January, [facility] [address] [id number] [place] [address] January, [facility] [address] [id number] [place] [address] January, [facility] [address] [id number] [place] [address] January, [facility] [address] [id number] [place] [address] January, [facility] [place] [facility] [address] [id number] [place] [address] January, [facility] [address] [id number] [place] [address] January, [facility] [place] [facility] [address] [id number] [place] [address] January, [facility] [place] [facility] [address] [id number] [place] [address] January, [facility] [place] [facility] [address] [id number] [place] [address] January, [facility] [place] [facility] [address] [id number] [place] [address] January, [facility] [place] [facility] [address] [id number] [place] [address] January, [facility] [place] [facility] [address] [id number] [place] [address] January, [facility] [place] [facility] [address] [id number] [place] [address] January, [facility] [place] [facility] [address] [id number] [place] [address] January, [facility] [place] [facility] [address] [id number] [place] [address] Dec, [facility] [place] [facility] [address] [id number] [place] [address] Dec, [facility] [place] [facility] [address] [id number] [place] [address] Dec, [facility] [place] [facility] [address] [id number] [place] [address] Dec, [facility] [place] [facility] [address] [id number] [place] [address] Dec, [facility] [place] [facility] [address] [id number] [place] [address] Nov, [facility] [place] [facility] [address] [id number] [place] [address] Oct, [facility] [place] [facility] [address] [id number] [place] [address] Oct, [facility] [place] [facility] [address] [id number] [place] [address] Oct, [facility] [place] [facility] [address] [id number] [place] [address] Oct, [facility] [place] [facility] [address] [id number] [place] [address] Oct, [facility] [place] [facility] [address] [id number] [place] [address] Sep, [facility] [place] [facility] [address] [id number] [place] [address] Sep, [facility] [place] [facility] [address] [id number] [place] [address] Sep, [facility] [place] [facility] [address] [id number] [place] [address] Aug, [facility] [place] [facility] [address] [id number] [place] [address] Aug, [facility] [place] [facility] [id number] [place] [address] Aug, [facility] [place] [facility] [address] [id number] [place] [address] Aug, [facility] [place] [facility] [address] [id number] [place] [address] Jul, [facility] [place] [facility] [address] [id number] [place] [address] Jul, [facility] [place] [facility] [id number] [place] [address] Jul, [facility] [place] [facility] [id number] [place] [address] Jul, [facility] [place] [facility] [id number] [place] [address] Jul, [facility] [place] [facility] [id number] [place] [address] Jul, [facility] [place] [facility] [id number] [place] [address] Jun, [facility] [place] [facility] [address] [id number] [place] [address] Jun, [facility] [place] [facility] [address] [id number] [place] [address] Jun, [facility] [place] [facility] [id number] [place] [address] 10 Jun, 2012 [facility] [place] [facility] [address] [id number] [place] [address] 09 Jun, 2012 [facility] [place] [facility] [id number] [place] [address] Jun, [facility] [place] [facility] [address] [facility] [id number] [place] [address] Jun, [facility] [place] [facility] [address] [id number] [place] [address] Jun, [facility] [place] [facility] [address] [id number] [place] [address] Jun, [facility] [place] [facility] [address] [id number] [place] [address] Jun, [facility] [place] [facility] [address] [facility] [id number] [place] [address] May, [facility] [place] [facility] [address] [id number] [place] [address] May, [facility] [place] [facility] [address] [id number] [place] [address] May, [facility] [place] [facility] [address] [id number] [place] [address] Apr, [facility] [place] [facility] [address] [id number] [place] [address] Apr, [facility] [place] [facility] [address] [id number] [place] [address] Apr, [facility] [place] [facility] [address] [id number] [place] [address] Apr, [facility] [place] [facility] [address] [id number] [place] [address] Apr, [facility] [place] [facility] [address] [id number] [place] [address] Apr, [facility] [place] [facility] [address] [id number] [place] [address] Apr, [facility] [place] [facility] [address] [id number] [place] [address] Apr, [facility] [place] [facility] [address] [id number] [place] [address] Apr, [facility] [place] [facility] [address] [id number] [place] [address] Mar, [facility] [place] [facility] [address] [id number] [place] [address] Mar, [facility] [place] [facility] [address] [id number] [place] [address] Mar, [facility] [place] [facility] [address] [id number] [place] [address] Mar, [facility] [place] [facility] [address] [id number] [place] [address] Feb, [facility] [place] [facility] [address] [id number] [place] [address] Feb, [facility] [place] [facility] [address] [id number] [place] [address] Feb, [facility] [place] [facility] [address] [id number] [place] [address] January, [facility] [place] [facility] [address] [id number] [place] [address] January, [facility] [place] [facility] [address] [id number] [place] [address] January, [facility] [place] [facility] [address] [id number] [place] [address] January, [facility] [place] [facility] [address] [id number] [place] [address] January, [facility] [place] [facility] [address] [id number] [place] [address] Dec, [facility] [place] [facility] [address] [id number] [place] [address] Dec, [facility] [place] [facility] [address] [id number] [place] [address] 16 Dec, 2011 [facility] [place] [facility] [address] [id number] [place] [address] Oct, [facility] [place] [facility] [address] [id number] [place] [address] Oct, [facility] [place] [facility] [address] [id number] [place] [address] Oct, [facility] [address] [id number] [place] [address] Sep, [facility] [place] [facility] [address] [id number] [place] [address] Sep, [facility] [address] [id number] [place] [address] Aug, [facility] [place] [facility] [address] [id number] [place] [address] Jul, [facility] [place] [facility] [address] [id number] [place] [address] Jul, [facility] [place] [facility] [address] [id number] [place] [address] Mar, [facility] [address] [id number] [place] [address] Aug, [facility] [place] [facility] [address] [id number] [place] [address] Jul, [facility] [place] [facility] [address] [id number] [place] [address] Jul, [facility] [place] [facility] [address] [id number] [place] [address] Jul, [facility] [place] [facility] [address] [id number] [place] [address] Jul, [facility] [place] [facility] [address] [id number] [place] [address] 14 Jun, 2010 [facility] [place] [facility] [address] [id number] [place] [address] Jun, [facility] [place] [facility] [address] [id number] [place] [address] Apr, [facility] [place] [facility] [address] [id number] [place] [address] Aug, [facility] [address] [id number] [place] [address] 17 Jul, 2009 [facility] [id number] [place] [address] Jul, [facility] [id number] [place] [address] Jul, [facility] [id number] [place] [address] 23 Jun, 2009 [facility] [id number] [place] [address] 10 May, 2009 [facility] [id number] [place] [address] 14 Dec, 2008 [facility] [id number] [place] [address] Nov, [facility] [id number] [place] [address] Oct, [facility] [id number] [place] [address] Aug, [facility] [id number] [place] [address] Aug, [facility] [id number] [place] [address] Jun, IMMUNIZATIONS No Known Immunizations SOCIAL HISTORY Never Assessed REASON FOR VISIT PLAN OF CARE VITAL SIGNS Weight 333.25 lbs 2013-12-03 Blood pressure systolic 112 mmHg 2013-12-03 Blood pressure diastolic 68 mmHg 2013-12-03 MEDICATIONS Unknown Medications RESULTS No Results PROCEDURES Procedure Date Ordered Result Body Site ASSAY OF MAGNESIUM December 03, 2013 BASIC METABOLIC PANEL December 03, 2013 VENIPUNCT, ROUTINE* December 03, 2013 INSTRUCTIONS MEDICATIONS ADMINISTERED No Known Medications [...] x 3 day s 04/2012 Hospitalization History [facility] [place]- Right wrist injury 03/29/2018
--- OUTSIDE RECORDS SUMMARY | 2020-04-09 00:27 | XMS REPORT ---
Author Author Kateryna LAURENT Organization [facility] Address [address] [place] [address] Care Team Providers Care Jute Bag Sewer Name Role Phone YAMILETH LAURENT Unavailable PROBLEMS Type Condition ICD9-CM Code NYF75-QU Code Onset Dates Condition S tatus SNOMED Code Problem Irregular menses N92.6 Active 801 68400 Problem Migraine with aura and without status migrainosu s, not intractable G43.109 Active 8043911 Problem Uncontrolled type 2 diabetes mellitus with hyperglycemia E11.65 Active 536921019 Problem Morbid obesity due to excess calories E66.01 Active 719906483 Problem RLS (restless legs syndrome) G25.81 A ctive 37953929 Problem Morbid obesity E66.01 Active 35061 6002 ALLERGIES No Information ENCOUNTERS Encounter Location Date Diagnosis [facility] [address] [address] 15 Oct, 2019 [facility] WALK IN [facility] [address] [facility] [id number] [address] [address] 09 Oct, [address] [facility] [address] [address] 16 Sep, 2019 [facility] [address] [address] 14 Sep, 2019 [facility] [address] [address] 14 Sep, 2019 [facility] [address] [address] 13 Sep, 2019 [facility] [address] [address] 10 Sep, 2019 Pneumonia of left lower lobe due to infe ctious organism J18.9 and Migraine with aura and without status migrainosus, not intractable G43.109 [place] [address] [address] Sep, [place] [address] [address] Sep, [place] [address] [address] Sep, [place] [address] [address] Sep, [place] [address] [address] Sep, Pneumonia of left lower lobe due to infe ctious organism J18.9 and Migraine with aura and without status migrainosus, not intractable G43.109 [place] [address] [address] Aug, Irregular menses N92.6 ; Well woman exam Z01.419 ; Pelvic cramping R10.2 and Left breast lump N63.20 [place] [address] [address] Aug, [place] [address] [address] Aug, Well woman exam Z01.419 ; Left breast nenita mp N63.20 ; Irregular menses N92.6 ; Encounter for immunization Z23 ; Pelvic cramping R10.2 and Screening for cervical cancer Z12.4 [place] [address] [address] Aug, [place] [address] [address] Aug, [place] [address] [address] Aug, [place] [address] [address] Jul, [place] [address] [address] Jun, [facility] [id number] [place] [address] Jun, [place] [address] [address] Jun, [facility] [id number] [place] [address] Jun, BMI 50.0-59.9, adult Z68.43 [place] [id number] [place] [address] Jun, [facility] IN [facility] [address] [facility] [id number] [address] [address] May, Acute non-recurrent sinusiti s, unspecified location J01.90 ; Diarrhea, unspecified R19.7 ; Vomiting, unspecified R11.10 and Morbid obesity E66.01 [place] [id number] [place] [address] Apr, [place] [address] [address] Apr, Anemia due to other cause, not classifie d D64.89 and D-dimer, elevated R79.89 [place] [id number] [place] [address] Apr, [place] [address] [address] Apr, [place] [address] [address] Mar, Anemia due to other cause, not classifie d D64.89 and D-dimer, elevated R79.89 [place] [address] [address] Mar, Leg edema, right R60.0 ; High risk medic ation use Z79.899 and Morbid obesity E66.01 [place] [address] [address] Mar, BMI 50.0-59.9, adult Z68.43 [facility] [address] [address] Mar, [facility] [address] [address] January, Uncontrolled type 2 diabetes mellitus wi th hyperglycemia E11.65 ; RLS (restless legs syndrome) G25.81 and Morbid obesity E66.01 [facility] [address] [address] Oct, Lipoma of right lower extremity D17.23 [place] [address] [address] Oct, Lipoma of right lower extremity D17.23 [place] [address] [address] Sep, [facility] [address] [address] Sep, [facility] [address] [address] Sep, [facility] [address] [address] Sep, [facility] [address] [address] Sep, [facility] [address] [address] Aug, Uncontrolled type 2 diabetes mellitus wi th hyperglycemia E11.65 ; Morbid obesity due to excess calories E66.01 ; Lipoma of torso D17.1 and BMI 50.0-59.9, adult Z68.43 [facility] [address] [address] Jun, Encounter for immunization Z23 [facility] [address] [address] Jul, [facility] [address] [address] Jun, Encounter for immunization Z23 [facility] [id number] [place] [address] 30 May, 2016 [facility] [id number] [place] [address] Jun, Encounter for immunization Z23 [facility] [id number] [place] [address] 29 May, 2015 [facility] [id number] [place] [address] May, [facility] [id number] [place] [address] Apr, [facility] [id number] [place] [address] Feb, [facility] [id number] [place] [address] Feb, [facility] [id number] [place] [address] Feb, [facility] [id number] [place] [address] January, [facility] [id number] [place] [address] January, [facility] [id number] [place] [address] Dec, [facility] [id number] [place] [address] Dec, [facility] [id number] [place] [address] Nov, [facility] [id number] [place] [address] Nov, [facility] [id number] [place] [address] Nov, [facility] [id number] [place] [address] Nov, [facility] [address] [facility] [id number] [place] [address] Nov, [facility] [address] [facility] [id number] [facility] [place] [address] Nov, [facility] [address] [facility] [id number] [facility] [place] [address] Nov, [facility] [address] [id number] [facility] [place] [address] Oct, [facility] [address] [facility] [id number] [facility] [place] [address] Oct, [facility] [address] [id number] [place] [address] Oct, [facility] [address] [id number] [place] [address] Oct, [facility] [address] [id number] [place] [address] Oct, [facility] [address] [id number] [place] [address] Sep, [facility] [address] [id number] [place] [address] Sep, [facility] [address] [id number] [place] [address] Sep, [facility] [address] [id number] [place] [address] Sep, [facility] [address] [id number] [place] [address] Sep, [facility] [address] [id number] [place] [address] Sep, [facility] [address] [id number] [place] [address] Sep, [facility] [address] [id number] [place] [address] Sep, [facility] [address] [id number] [facility] [place] [address] 07 Sep, 2014 [facility] [address] [id number] [place] [address] Sep, [facility] [address] [id number] [place] [address] Aug, [facility] [address] [id number] [place] [address] Aug, [facility] [address] [id number] [place] [address] Aug, [facility] [address] [id number] [place] [address] Aug, [facility] [address] [id number] [place] [address] Aug, [facility] [address] [id number] [place] [address] Aug, [facility] [address] [id number] [place] [address] Aug, [facility] [address] [id number] [place] [address] Aug, [facility] [address] [id number] [place] [address] Aug, [facility] [address] [id number] [place] [address] Aug, [facility] [address] [id number] [place] [address] Aug, [facility] [address] [id number] [place] [address] Aug, [facility] [address] [id number] [place] [address] Aug, [facility] [address] [id number] [place] [address] Aug, [facility] [address] [id number] [place] [address] Aug, [facility] [address] [id number] [place] [address] 17 Aug, 2014 [facility] [address] [id number] [place] [address] 16 Aug, 2014 [facility] [address] [id number] [place] [address] 16 Aug, 2014 [facility] [address] [id number] [place] [address] Aug, [facility] [address] [id number] [place] [address] Aug, [facility] [address] [id number] [place] [address] 08 Aug, 2014 [facility] [address] [id number] [place] [address] 08 Aug, 2014 [facility] [address] [id number] [place] [address] 05 Aug, 2014 [facility] [address] [id number] [place] [address] 05 Aug, 2014 [facility] [address] [id number] [place] [address] Jul, [facility] [address] [id number] [place] [address] Jul, [facility] [address] [id number] [place] [address] Jun, [facility] [address] [id number] [place] [address] 27 Jun, 2014 [facility] [address] [id number] [place] [address] Jun, [facility] [id number] [place] [address] 17 Jun, 2014 [facility] [address] [id number] [place] [address] 15 Jun, 2014 [facility] [address] [id number] [place] [address] 15 Jun, 2014 [facility] [address] [facility] [id number] [place] [address] 14 Jun, 2014 [facility] [address] [facility] [id number] [place] [address] 14 Jun, 2014 [facility] [address] [id number] [place] [address] 13 Jun, 2014 [facility] [address] [facility] [id number] [place] [address] Jun, [facility] [address] [facility] [id number] [place] [address] Jun, [facility] [address] [id number] [place] [address] Jun, [facility] [address] [id number] [place] [address] Jun, [facility] [address] [id number] [place] [address] Jun, [facility] [address] [facility] [id number] [place] [address] 26 May, 2013 [facility] [address] [id number] [place] [address] 26 Sep, 2013 [facility] [address] [id number] [place] [address] 22 May, 2013 [facility] [address] [id number] [place] [address] 22 May, 2013 [facility] [address] [facility] [id number] [place] [address] 04 Sep, 2013 [facility] [address] [facility] [id number] [place] [address] 04 Sep, 2013 [facility] [address] [id number] [place] [address] 02 Sep, 2013 [facility] [address] [id number] [place] [address] 02 Sep, 2013 [facility] [address] [id number] [facility] [address] Apr, [facility] [address] [id number] [facility] [address] Apr, [facility] [address] [facility] [id number] [place] [address] Apr, [facility] [address] [id number] [place] [address] Apr, [facility] [address] [id number] [place] [address] Apr, [facility] [address] [id number] [place] [address] Apr, [facility] [address] [id number] [place] [address] Apr, [facility] [address] [id number] [place] [address] Apr, [facility] [address] [id number] [place] [address] Apr, [facility] [address] [id number] [place] [address] Mar, [facility] [address] [id number] [place] [address] Mar, [facility] [address] [id number] [place] [address] Mar, [facility] [address] [id number] [place] [address] Feb, [facility] [address] [id number] [place] [address] Feb, [facility] [address] [id number] [place] [address] Feb, [facility] [address] [facility] [id number] [place] [address] Feb, [facility] [address] [id number] [place] [address] Feb, [facility] [address] [facility] [id number] [place] [address] Feb, [facility] [address] [id number] [place] [address] Feb, [facility] [address] [id number] [place] [address] Feb, [facility] [address] [id number] [place] [address] Feb, [facility] [address] [facility] [id number] [place] [address] Feb, [facility] [address] [id number] [place] [address] Feb, [facility] [address] [id number] [place] [address] Feb, [facility] [address] [id number] [place] [address] Feb, [facility] [address] [id number] [place] [address] Feb, [facility] [address] [id number] [place] [address] Feb, [facility] [address] [id number] [place] [address] Feb, [facility] [address] [id number] [place] [address] January, [facility] [address] [id number] [place] [address] January, [facility] [address] [id number] [place] [address] January, [facility] [address] [id number] [place] [address] January, [facility] [address] [id number] [place] [address] January, [facility] [address] [id number] [place] [address] January, [facility] [address] [id number] [place] [address] January, [facility] [address] [facility] [id number] [facility] [address] January, [facility] [address] [facility] [id number] [place] [address] January, [facility] [address] [id number] [facility] [address] January, [facility] [address] [facility] [id number] [place] [address] January, [facility] [address] [id number] [facility] [address] January, [facility] [address] [facility] [id number] [place] [address] January, [facility] [address] [id number] [place] [address] January, [facility] [address] [facility] [id number] [place] [address] January, [facility] [address] [id number] [place] [address] January, [facility] [address] [facility] [id number] [place] [address] January, [facility] [address] [id number] [place] [address] January, [facility] [address] [facility] [id number] [place] [address] January, [facility] [address] [id number] [place] [address] January, [facility] [address] [facility] [id number] [place] [address] January, [facility] [address] [id number] [place] [address] January, [facility] [address] [id number] [facility] [address] January, [facility] [address] [id number] [place] [address] January, [facility] [address] [id number] [place] [address] January, [facility] [address] [id number] [place] [address] January, [facility] [address] [id number] [place] [address] Dec, [facility] [address] [id number] [place] [address] Dec, [facility] [address] [id number] [place] [address] Dec, [facility] [address] [id number] [place] [address] Dec, [facility] [address] [id number] [place] [address] Dec, [facility] [address] [id number] [place] [address] Dec, [facility] [address] [id number] [place] [address] Dec, [facility] [address] [id number] [place] [address] Dec, [facility] [address] [id number] [place] [address] Dec, [facility] [address] [id number] [place] [address] Dec, [facility] [address] [id number] [place] [address] Dec, [facility] [address] [id number] [place] [address] Dec, [facility] [address] [id number] [place] [address] Dec, [facility] [address] [id number] [place] [address] 14 Dec, 2013 [facility] [address] [id number] [place] [address] Dec, [facility] [address] [id number] [place] [address] Dec, [facility] [address] [id number] [place] [address] Dec, [facility] [address] [id number] [place] [address] Dec, [facility] [address] [id number] [place] [address] Dec, [facility] [address] [id number] [place] [address] Dec, [facility] [address] [id number] [place] [address] Dec, [facility] [address] [id number] [place] [address] Dec, [facility] [address] [id number] [place] [address] Nov, [facility] [address] [id number] [place] [address] Nov, [facility] [address] [id number] [place] [address] Nov, [facility] [address] [id number] [place] [address] Nov, [facility] [address] [id number] [place] [address] Nov, [facility] [address] [id number] [place] [address] 24 Nov, 2013 [facility] [address] [id number] [place] [address] Nov, [facility] [address] [id number] [place] [address] Nov, [facility] [address] [facility] [id number] [place] [address] Nov, [facility] [address] [facility] [id number] [facility] [address] 18 Nov, 2013 [facility] [address] [id number] [place] [address] 18 Nov, 2013 [facility] [address] [id number] [facility] [address] 18 Nov, 2013 [facility] [address] [facility] [id number] [place] [address] Nov, [facility] [address] [id number] [place] [address] 14 Nov, 2013 [facility] [address] [id number] [place] [address] Nov, [facility] [address] [id number] [place] [address] Nov, [facility] [address] [id number] [place] [address] Oct, [facility] [address] [id number] [place] [address] Oct, [facility] [address] [id number] [place] [address] Oct, [facility] [address] [id number] [place] [address] Oct, [facility] [address] [id number] [place] [address] 24 Oct, 2013 [facility] [address] [id number] [place] [address] Oct, [facility] [address] [id number] [place] [address] Oct, [facility] [address] [id number] [place] [address] Oct, [facility] [place] [facility] [address] [id number] [place] [address] Oct, [facility] [place] [facility] [address] [id number] [place] [address] Oct, [facility] [place] [facility] [address] [id number] [place] [address] Oct, [facility] [place] [facility] [address] [id number] [place] [address] Oct, [facility] [place] [facility] [address] [id number] [place] [address] Oct, [facility] [place] [facility] [address] [id number] [place] [address] Oct, [facility] [place] [facility] [address] [id number] [place] [address] Oct, [facility] [place] [facility] [address] [id number] [place] [address] Sep, [facility] [place] [facility] [address] [id number] [place] [address] Sep, [facility] [place] [facility] [address] [id number] [place] [address] Sep, [facility] [place] [facility] [address] [id number] [place] [address] Sep, [facility] [place] [facility] [address] [id number] [place] [address] Sep, [facility] [place] [facility] [address] [id number] [place] [address] Sep, [facility] [place] [facility] [address] [id number] [place] [address] Sep, [facility] [place] [facility] [address] [id number] [place] [address] Sep, [facility] [place] [facility] [address] [id number] [place] [address] Sep, [facility] [place] [facility] [address] [id number] [place] [address] Sep, [facility] [place] [facility] [address] [id number] [place] [address] Sep, [facility] [place] [facility] [address] [id number] [place] [address] Sep, [facility] [place] [facility] [address] [id number] [place] [address] Sep, [facility] [place] [facility] [address] [id number] [place] [address] Aug, [facility] [place] [facility] [address] [id number] [place] [address] Aug, [facility] [place] [facility] [address] [id number] [place] [address] Aug, [facility] [place] [facility] [address] [id number] [place] [address] Aug, [facility] [place] [facility] [address] [id number] [place] [address] Aug, [facility] [place] [facility] [address] [id number] [place] [address] Aug, [facility] [place] [facility] [address] [id number] [place] [address] 16 Aug, 2013 [facility] [place] [facility] [address] [id number] [place] [address] 16 Aug, 2013 [facility] [place] [facility] [address] [id number] [place] [address] Aug, [facility] [place] [facility] [address] [id number] [place] [address] Aug, [facility] [place] [facility] [address] [id number] [place] [address] 10 Aug, 2013 [facility] [place] [facility] [address] [id number] [place] [address] 10 Aug, 2013 [facility] [place] [facility] [address] [id number] [place] [address] Aug, [facility] [place] [facility] [address] [id number] [place] [address] 02 Aug, 2012 [facility] [place] [facility] [address] [id number] [place] [address] Jul, [facility] [place] [facility] [address] [id number] [place] [address] 19 Jul, 2013 [facility] [place] [facility] [address] [id number] [place] [address] 18 Jul, 2013 [facility] [place] [facility] [address] [id number] [place] [address] 18 Jul, 2013 [facility] [place] [facility] [address] [id number] [place] [address] 14 Jul, 2013 [facility] [place] [facility] [address] [id number] [place] [address] 14 Jul, 2013 [facility] [place] [facility] [address] [id number] [place] [address] 14 Jul, 2013 [facility] [place] [facility] [address] [id number] [place] [address] 14 Jul, 2013 [facility] [place] [facility] [address] [id number] [place] [address] 07 Jul, 2013 [facility] [place] [facility] [address] [id number] [place] [address] 07 Jul, 2013 [facility] [place] [facility] [address] [id number] [place] [address] 06 Jul, 2013 [facility] [place] [facility] [address] [id number] [place] [address] 06 Jul, 2013 [facility] [place] [facility] [address] [id number] [place] [address] 05 Jul, 2013 [facility] [place] [facility] [address] [id number] [place] [address] Jul, [facility] [place] [facility] [address] [id number] [place] [address] Jun, [facility] [place] [facility] [address] [id number] [place] [address] Jun, [facility] [place] [facility] [address] [id number] [place] [address] 15 Jun, 2012 [facility] [place] [facility] [address] [id number] [place] [address] 15 Jun, 2012 [facility] [place] [facility] [address] [id number] [place] [address] 14 Jun, 2012 [facility] [place] [facility] [address] [id number] [place] [address] 24 Sep, 2012 [facility] [place] [facility] [address] [id number] [place] [address] 20 Sep, 2012 [facility] [place] [facility] [address] [id number] [place] [address] 20 Sep, 2012 [facility] [place] [facility] [address] [id number] [place] [address] 20 Sep, 2012 [facility] [place] [facility] [address] [id number] [place] [address] 19 Sep, 2012 [facility] [place] [facility] [address] [id number] [place] [address] 13 Sep, 2012 [facility] [place] [facility] [address] [id number] [place] [address] 12 Sep, 2012 [facility] [place] [facility] [address] [id number] [place] [address] 12 Sep, 2012 [facility] [place] [facility] [address] [id number] [place] [address] 11 Sep, 2012 [facility] [place] [facility] [address] [id number] [place] [address] 11 Sep, 2012 [facility] [place] [facility] [address] [id number] [place] [address] 11 Sep, 2012 [facility] [place] [facility] [address] [id number] [place] [address] 09 Sep, 2012 [facility] [place] [facility] [address] [id number] [place] [address] 05 Sep, 2012 [facility] [place] [facility] [address] [id number] [place] [address] May, [facility] [place] [facility] [address] [id number] [facility] [address] May, [facility] [place] [facility] [address] [facility] [id number] [facility] [place] [address] Apr, [facility] [place] [facility] [address] [id number] [facility] [place] [address] Apr, [facility] [place] [facility] [address] [id number] [place] [address] Apr, [facility] [place] [facility] [address] [facility] [id number] [facility] [place] [address] Apr, [facility] [place] [facility] [address] [id number] [facility] [place] [address] Apr, [facility] [place] [facility] [address] [id number] [facility] [address] Apr, [facility] [place] [facility] [address] [id number] [place] [address] Apr, [facility] [place] [facility] [address] [id number] [facility] [address] Apr, [facility] [place] [facility] [address] [id number] [place] [address] Apr, [facility] [place] [facility] [address] [id number] [place] [address] Mar, [facility] [place] [facility] [address] [id number] [place] [address] Mar, [facility] [place] [facility] [address] [id number] [facility] [address] Mar, [facility] [place] [facility] [address] [id number] [place] [address] Mar, [facility] [place] [facility] [address] [id number] [place] [address] Mar, [facility] [place] [facility] [address] [id number] [place] [address] Mar, [facility] [place] [facility] [address] [id number] [facility] [address] Mar, [facility] [place] [facility] [address] [id number] [place] [address] Mar, [facility] [place] [facility] [address] [facility] [id number] [place] [address] Mar, [facility] [place] [facility] [address] [id number] [place] [address] Mar, [facility] [place] [facility] [address] [facility] [id number] [place] [address] Mar, [facility] [place] [facility] [address] [facility] [id number] [place] [address] Feb, [facility] [place] [facility] [address] [id number] [place] [address] Feb, [facility] [place] [facility] [address] [id number] [place] [address] Feb, [facility] [place] [facility] [address] [id number] [place] [address] Feb, [facility] [place] [facility] [address] [id number] [place] [address] Feb, [facility] [place] [facility] [address] [id number] [place] [address] Feb, [facility] [place] [facility] [address] [id number] [place] [address] Feb, [facility] [place] [facility] [address] [id number] [place] [address] Feb, [facility] [place] [facility] [address] [facility] [id number] [place] [address] Feb, [facility] [place] [facility] [address] [id number] [place] [address] January, [facility] [place] [facility] [address] [id number] [place] [address] January, [facility] [place] [facility] [address] [id number] [place] [address] January, [facility] [address] [id number] [place] [address] January, [facility] [address] [id number] [place] [address] January, [facility] [address] [id number] [place] [address] January, [facility] [address] [id number] [place] [address] January, [facility] [place] [facility] [address] [id number] [place] [address] January, [facility] [address] [id number] [place] [address] January, [facility] [address] [id number] [place] [address] January, [facility] [address] [id number] [place] [address] January, [facility] [address] [id number] [place] [address] January, [facility] [address] [id number] [place] [address] January, [facility] [place] [facility] [address] [id number] [place] [address] January, [facility] [address] [id number] [place] [address] January, [facility] [place] [facility] [address] [id number] [place] [address] January, [facility] [place] [facility] [address] [id number] [place] [address] January, [facility] [place] [facility] [address] [id number] [place] [address] January, [facility] [place] [facility] [address] [id number] [place] [address] January, [facility] [place] [facility] [address] [id number] [place] [address] January, [facility] [place] [facility] [address] [id number] [facility] [address] January, [facility] [place] [facility] [address] [id number] [facility] [address] January, [facility] [place] [facility] [address] [id number] [facility] [address] January, [facility] [place] [facility] [address] [id number] [facility] [address] Dec, [facility] [place] [facility] [address] [id number] [facility] [address] Dec, [facility] [place] [facility] [address] [id number] [place] [address] Dec, [facility] [place] [facility] [address] [id number] [place] [address] Dec, [facility] [place] [facility] [address] [id number] [place] [address] Dec, [facility] [place] [facility] [address] [id number] [place] [address] Nov, [facility] [place] [facility] [address] [id number] [place] [address] Oct, [facility] [place] [facility] [address] [id number] [place] [address] Oct, [facility] [place] [facility] [address] [id number] [place] [address] Oct, [facility] [place] [facility] [address] [id number] [place] [address] Oct, [facility] [place] [facility] [address] [id number] [place] [address] Oct, [facility] [place] [facility] [address] [id number] [place] [address] Sep, [facility] [place] [facility] [address] [id number] [place] [address] Sep, [facility] [place] [facility] [address] [id number] [place] [address] Sep, [facility] [place] [facility] [address] [id number] [place] [address] Aug, [facility] [place] [facility] [address] [id number] [place] [address] Aug, [facility] [place] [facility] [id number] [place] [address] Aug, [facility] [place] [facility] [address] [id number] [place] [address] Aug, [facility] [place] [facility] [address] [id number] [place] [address] Jul, [facility] [place] [facility] [address] [id number] [place] [address] Jul, [facility] [place] [facility] [id number] [place] [address] Jul, [facility] [place] [facility] [id number] [place] [address] Jul, [facility] [place] [facility] [id number] [place] [address] Jul, [facility] [place] [facility] [id number] [place] [address] Jul, [facility] [place] [facility] [id number] [place] [address] Jun, [facility] [place] [facility] [address] [id number] [place] [address] Jun, [facility] [place] [facility] [address] [id number] [place] [address] Jun, [facility] [place] [facility] [id number] [place] [address] 10 Jun, 2012 [facility] [place] [facility] [address] [id number] [place] [address] 09 Jun, 2012 [facility] [place] [facility] [id number] [place] [address] Jun, [facility] [place] [facility] [address] [facility] [id number] [place] [address] Jun, [facility] [place] [facility] [address] [id number] [place] [address] Jun, [facility] [place] [facility] [address] [id number] [place] [address] Jun, [facility] [place] [facility] [address] [id number] [place] [address] Jun, [facility] [place] [facility] [address] [facility] [id number] [place] [address] May, [facility] [place] [facility] [address] [id number] [place] [address] May, [facility] [place] [facility] [address] [id number] [place] [address] May, [facility] [place] [facility] [address] [id number] [place] [address] Apr, [facility] [place] [facility] [address] [id number] [place] [address] Apr, [facility] [place] [facility] [address] [id number] [place] [address] Apr, [facility] [place] [facility] [address] [id number] [place] [address] Apr, [facility] [place] [facility] [address] [id number] [place] [address] Apr, [facility] [place] [facility] [address] [id number] [place] [address] Apr, [facility] [place] [facility] [address] [id number] [place] [address] Apr, [facility] [place] [facility] [address] [id number] [place] [address] Apr, [facility] [place] [facility] [address] [id number] [place] [address] Apr, [facility] [place] [facility] [address] [id number] [place] [address] Mar, [facility] [place] [facility] [address] [id number] [place] [address] Mar, [facility] [place] [facility] [address] [id number] [place] [address] Mar, [facility] [place] [facility] [address] [facility] [id number] [place] [address] Mar, [facility] [address] [id number] [place] [address] Feb, [facility] [address] [id number] [place] [address] Feb, [facility] [address] [id number] [place] [address] Feb, [facility] [address] [id number] [place] [address] January, [facility] [address] [id number] [place] [address] January, [facility] [address] [id number] [place] [address] January, [facility] [address] [id number] [place] [address] January, [facility] [address] [id number] [place] [address] January, [facility] [address] [id number] [place] [address] Dec, [facility] [address] [id number] [place] [address] Dec, [facility] [address] [id number] [place] [address] 16 Dec, 2011 [facility] [address] [id number] [place] [address] Oct, [facility] [address] [id number] [place] [address] Oct, [facility] [address] [id number] [place] [address] Oct, [facility] [address] [id number] [place] [address] Sep, [facility] [address] [id number] [place] [address] Sep, [facility] [address] [id number] [place] [address] Aug, [facility] [address] [id number] [place] [address] Jul, [facility] [address] [id number] [place] [address] Jul, [facility] [address] [id number] [place] [address] Mar, [facility] [address] [id number] [place] [address] Aug, [facility] [address] [id number] [place] [address] Jul, [facility] [address] [id number] [place] [address] Jul, [facility] [address] [id number] [place] [address] Jul, [facility] [address] [id number] [place] [address] Jul, [facility] [address] [id number] [place] [address] 14 Jun, 2010 [facility] [address] [id number] [place] [address] Jun, [facility] [address] [id number] [place] [address] Apr, [facility] [address] [id number] [place] [address] Aug, [facility] [address] [id number] [place] [address] Jul, [facility] [address] [id number] [place] [address] Jul, [facility] [id number] [place] [address] Jul, [facility] [address] [id number] [place] [address] 23 Jun, [facility] [id number] [place] [address] 10 May, [facility] [id number] [place] [address] 14 Dec, [facility] [id number] [place] [address] Nov, [facility] [id number] [place] [address] [address] [facility] [id number] [place] [address] Aug, [facility] [id number] [place] [address] Aug, [facility] [id number] [place] [address] Jun, IMMUNIZATIONS No Known Immunizations SOCIAL HISTORY [...] x 3 day s 04/2012 Hospitalization History [facility] [place]- Right wrist injury 03/29/2018
--- OUTSIDE RECORDS SUMMARY | 2020-04-09 00:28 | XMS REPORT ---
Author Author Kateryna UMANZOR Organization [facility] Address [address] [place] [address] Care Team Providers Care Training Lead Name Role Phone ZENA UMANZOR Unavailable PROBLEMS Type Condition ICD9-CM Code ZVS12-YI Code Onset Dates Condition S tatus SNOMED Code Problem Irregular menses N92.6 Active 801 09065 Problem Migraine with aura and without status migrainosu s, not intractable G43.109 Active 1177265 Problem Uncontrolled type 2 diabetes mellitus with hyperglycemia E11.65 Active 099355007 Problem Morbid obesity due to excess calories E66.01 Active 552561394 Problem RLS (restless legs syndrome) G25.81 A ctive 53952448 Problem Morbid obesity E66.01 Active 10270 6002 ALLERGIES No Information ENCOUNTERS Encounter Location Date Diagnosis [facility] [address] [address] 15 Oct, 2019 [facility] [address] [facility] [id number] [address] [address] 09 Oct, 2019 Influenza J11.1 [facility] [address] [address] 16 Sep, 2019 [facility] [address] [address] 14 Sep, 2019 [facility] [address] [address] 14 Sep, 2019 [facility] [address] [address] 13 Sep, 2019 [facility] [address] [address] 10 Sep, 2019 Pneumonia of left lower lobe due to infe ctious organism J18.9 and Migraine with aura and without status migrainosus, not intractable G43.109 [place] [address] [address] Sep, [place] [address] [address] Sep, [place] [address] [address] Sep, [place] [address] [address] 08 Sep, 2019 [place] [address] [address] 08 Sep, 2019 Pneumonia of left lower lobe due to infe ctious organism J18.9 and Migraine with aura and without status migrainosus, not intractable G43.109 [place] [address] [address] Aug, Irregular menses N92.6 ; Well woman exam Z01.419 ; Pelvic cramping R10.2 and Left breast lump N63.20 [place] [address] [address] Aug, [place] [address] [address] Aug, Well woman exam Z01.419 ; Left breast nenita mp N63.20 ; Irregular menses N92.6 ; Encounter for immunization Z23 ; Pelvic cramping R10.2 and Screening for cervical cancer Z12.4 [place] [address] [address] Aug, [place] [address] [address] Aug, [place] [address] [address] Aug, [place] [address] [address] Jul, [place] [address] [address] Jun, [facility] [id number] [place] [address] Jun, [place] [address] [address] Jun, [facility] [address] [address] Jun, BMI 50.0-59.9, adult Z68.43 [place] [address] [address] Jun, [facility] [address] [facility] [id number] [address] [place] [address] May, Acute non-recurrent sinusiti s, unspecified location J01.90 ; Diarrhea, unspecified R19.7 ; Vomiting, unspecified R11.10 and Morbid obesity E66.01 [place] [address] [address] Apr, [place] [address] [address] Apr, Anemia due to other cause, not classifie d D64.89 and D-dimer, elevated R79.89 [place] [address] [address] Apr, [place] [address] [address] Apr, [place] [address] [address] Mar, Anemia due to other cause, not classifie d D64.89 and D-dimer, elevated R79.89 [place] [address] [address] Mar, Leg edema, right R60.0 ; High risk medic ation use Z79.899 and Morbid obesity E66.01 [place] [address] [address] Mar, BMI 50.0-59.9, adult Z68.43 [facility] [address] [address] Mar, [facility] [address] [address] January, Uncontrolled type 2 diabetes mellitus wi th hyperglycemia E11.65 ; RLS (restless legs syndrome) G25.81 and Morbid obesity E66.01 [facility] [address] [address] Oct, Lipoma of right lower extremity D17.23 [facility] [address] [address] Oct, Lipoma of right lower extremity D17.23 [facility] [address] [address] Sep, [facility] [address] [address] Sep, [facility] [address] [address] Sep, [facility] [address] [address] Sep, [facility] [address] [address] Sep, [facility] [address] [address] Aug, Uncontrolled type 2 diabetes mellitus wi th hyperglycemia E11.65 ; Morbid obesity due to excess calories E66.01 ; Lipoma of torso D17.1 and BMI 50.0-59.9, adult Z68.43 [facility] [address] [address] Jun, Encounter for immunization Z23 [facility] [address] [address] Jul, [facility] [address] [address] Jun, Encounter for immunization Z23 [facility] [address] [id number] [place] [address] 30 May, 2016 [facility] [id number] [place] [address] Jun, Encounter for immunization Z23 [facility] [id number] [place] [address] 29 May, 2015 [facility] [id number] [place] [address] May, [facility] [id number] [place] [address] Apr, [facility] [id number] [place] [address] Feb, [facility] [id number] [place] [address] Feb, [facility] [id number] [place] [address] Feb, [facility] [id number] [place] [address] January, [facility] [address] [id number] [place] [address] January, [facility] [id number] [place] [address] Dec, [facility] [id number] [place] [address] Dec, [facility] [place] [facility] [address] [id number] [place] [address] Nov, [facility] [place] [facility] [id number] [place] [address] Nov, [facility] [place] [facility] [id number] [place] [address] Nov, [facility] [place] [facility] [id number] [place] [address] Nov, [facility] [place] [facility] [address] [id number] [place] [address] Nov, [facility] [place] [facility] [address] [id number] [place] [address] Nov, [facility] [place] [facility] [address] [id number] [place] [address] Nov, [facility] [place] [facility] [address] [id number] [place] [address] Oct, [facility] [place] [facility] [address] [id number] [place] [address] Oct, [facility] [place] [facility] [address] [id number] [place] [address] Oct, [facility] [place] [facility] [address] [id number] [place] [address] Oct, [facility] [place] [facility] [address] [id number] [place] [address] Oct, [facility] [place] [facility] [address] [id number] [place] [address] Sep, [facility] [place] [facility] [address] [id number] [place] [address] Sep, [facility] [place] [facility] [address] [id number] [place] [address] Sep, [facility] [place] [facility] [address] [id number] [place] [address] Sep, [facility] [place] [facility] [address] [id number] [place] [address] Sep, [facility] [place] [facility] [address] [id number] [place] [address] Sep, [facility] [place] [facility] [address] [id number] [place] [address] Sep, [facility] [place] [facility] [address] [id number] [place] [address] Sep, [facility] [place] [facility] [address] [id number] [place] [address] Sep, [facility] [place] [facility] [address] [facility] [id number] [place] [address] Sep, [facility] [place] [facility] [address] [facility] [id number] [place] [address] Aug, [facility] [place] [facility] [address] [id number] [place] [address] Aug, [facility] [place] [facility] [address] [id number] [place] [address] Aug, [facility] [place] [facility] [address] [facility] [id number] [place] [address] Aug, [facility] [place] [facility] [address] [id number] [place] [address] Aug, [facility] [place] [facility] [address] [id number] [place] [address] Aug, [facility] [place] [facility] [address] [id number] [place] [address] Aug, [facility] [place] [facility] [address] [id number] [place] [address] Aug, [facility] [place] [facility] [address] [id number] [place] [address] Aug, [facility] [place] [facility] [address] [id number] [place] [address] Aug, [facility] [place] [facility] [address] [id number] [place] [address] Aug, [facility] [place] [facility] [address] [facility] [id number] [place] [address] Aug, [facility] [place] [facility] [address] [id number] [place] [address] Aug, [facility] [place] [facility] [address] [id number] [place] [address] Aug, [facility] [place] [facility] [address] [id number] [place] [address] Aug, [facility] [place] [facility] [address] [id number] [place] [address] 17 Aug, 2014 [facility] [place] [facility] [address] [id number] [place] [address] 16 Aug, 2014 [facility] [place] [facility] [address] [id number] [place] [address] 16 Aug, 2014 [facility] [place] [facility] [address] [id number] [place] [address] 12 Aug, 2014 [facility] [place] [facility] [address] [id number] [place] [address] 12 Aug, 2014 [facility] [place] [facility] [address] [id number] [place] [address] 08 Aug, 2014 [facility] [place] [facility] [address] [id number] [place] [address] 08 Aug, 2014 [facility] [place] [facility] [address] [id number] [place] [address] 05 Aug, 2014 [facility] [place] [facility] [address] [id number] [place] [address] 05 Aug, 2014 [facility] [place] [facility] [address] [id number] [place] [address] Jul, [facility] [place] [facility] [address] [id number] [place] [address] Jul, [facility] [place] [facility] [address] [id number] [place] [address] Jun, [facility] [place] [facility] [address] [id number] [place] [address] Jun, [facility] [place] [facility] [address] [id number] [place] [address] Jun, [facility] [place] [facility] [address] [id number] [place] [address] 17 Jun, 2014 [facility] [place] [facility] [address] [id number] [place] [address] 15 Jun, 2014 [facility] [place] [facility] [address] [id number] [place] [address] 15 Jun, 2014 [facility] [place] [facility] [address] [id number] [place] [address] 14 Jun, 2014 [facility] [place] [facility] [address] [id number] [place] [address] 14 Jun, 2013 [facility] [place] [facility] [address] [id number] [place] [address] 13 Jun, 2013 [facility] [place] [facility] [address] [id number] [place] [address] Jun, 2013 [facility] [place] [facility] [address] [facility] [id number] [place] [address] Jun, 2013 [facility] [place] [facility] [address] [id number] [place] [address] Jun, [facility] [place] [facility] [address] [id number] [place] [address] Jun, [facility] [place] [facility] [address] [id number] [place] [address] Jun, 2013 [facility] [place] [facility] [address] [id number] [place] [address] 26 May, 2013 [facility] [place] [facility] [address] [id number] [place] [address] 26 Sep, 2013 [facility] [place] [facility] [address] [id number] [place] [address] 22 May, 2013 [facility] [place] [facility] [address] [id number] [place] [address] 22 May, 2013 [facility] [place] [facility] [address] [id number] [place] [address] Sep, 2013 [facility] [place] [facility] [address] [id number] [place] [address] 04 Sep, 2013 [facility] [place] [facility] [address] [id number] [place] [address] Sep, 2013 [facility] [place] [facility] [address] [id number] [place] [address] 02 Sep, 2013 [facility] [place] [facility] [address] [id number] [place] [address] Apr, [facility] [place] [facility] [address] [facility] [id number] [place] [address] Apr, [facility] [place] [facility] [address] [facility] [id number] [place] [address] Apr, [facility] [place] [facility] [address] [facility] [id number] [place] [address] Apr, [facility] [place] [facility] [address] [facility] [id number] [place] [address] Apr, [facility] [place] [facility] [address] [facility] [id number] [place] [address] Apr, [facility] [place] [facility] [address] [facility] [id number] [place] [address] Apr, [facility] [place] [facility] [address] [id number] [place] [address] Apr, [facility] [place] [facility] [address] [id number] [place] [address] Apr, [facility] [place] [facility] [address] [facility] [id number] [place] [address] Mar, [facility] [place] [facility] [address] [facility] [id number] [place] [address] Mar, [facility] [place] [facility] [address] [id number] [place] [address] Mar, [facility] [place] [facility] [address] [id number] [place] [address] Feb, [facility] [place] [facility] [address] [facility] [id number] [place] [address] Feb, [facility] [place] [facility] [address] [facility] [id number] [place] [address] Feb, [facility] [place] [facility] [address] [facility] [id number] [place] [address] Feb, [facility] [place] [facility] [address] [id number] [place] [address] Feb, [facility] [place] [facility] [address] [facility] [id number] [place] [address] 17 Feb, 2014 [facility] [place] [facility] [address] [facility] [id number] [place] [address] Feb, [facility] [place] [facility] [address] [facility] [id number] [place] [address] Feb, [facility] [place] [facility] [address] [id number] [place] [address] Feb, [facility] [place] [facility] [address] [facility] [id number] [place] [address] Feb, [facility] [place] [facility] [address] [facility] [id number] [place] [address] Feb, [facility] [place] [facility] [address] [id number] [place] [address] Feb, [facility] [place] [facility] [address] [id number] [place] [address] Feb, [facility] [place] [facility] [address] [id number] [place] [address] Feb, [facility] [place] [facility] [address] [id number] [place] [address] Feb, [facility] [place] [facility] [address] [id number] [place] [address] Feb, [facility] [place] [facility] [address] [id number] [place] [address] January, [facility] [place] [facility] [address] [id number] [place] [address] January, [facility] [place] [facility] [address] [facility] [id number] [place] [address] January, [facility] [place] [facility] [address] [id number] [place] [address] January, [facility] [place] [facility] [address] [id number] [place] [address] January, [facility] [place] [facility] [address] [id number] [place] [address] January, [facility] [address] [id number] [place] [address] January, [facility] [place] [facility] [address] [id number] [place] [address] January, [facility] [place] [facility] [address] [id number] [place] [address] January, [facility] [place] [facility] [address] [id number] [place] [address] January, [facility] [place] [facility] [address] [facility] [id number] [place] [address] January, [facility] [place] [facility] [address] [id number] [place] [address] January, [facility] [place] [facility] [address] [id number] [place] [address] January, [facility] [place] [facility] [address] [id number] [place] [address] January, [facility] [place] [facility] [address] [id number] [place] [address] January, [facility] [place] [facility] [address] [id number] [place] [address] January, [facility] [place] [facility] [address] [id number] [place] [address] January, [facility] [place] [facility] [address] [id number] [place] [address] January, [facility] [place] [facility] [address] [id number] [place] [address] January, [facility] [place] [facility] [address] [id number] [place] [address] January, [facility] [place] [facility] [address] [id number] [place] [address] January, [facility] [place] [facility] [address] [id number] [place] [address] January, [facility] [place] [facility] [address] [id number] [place] [address] January, [facility] [place] [facility] [address] [facility] [id number] [place] [address] January, [facility] [place] [facility] [address] [facility] [id number] [place] [address] January, [facility] [place] [facility] [address] [id number] [place] [address] January, [facility] [place] [facility] [address] [id number] [place] [address] Dec, [facility] [place] [facility] [address] [facility] [id number] [place] [address] Dec, [facility] [place] [facility] [address] [id number] [place] [address] Dec, [facility] [place] [facility] [address] [id number] [place] [address] Dec, [facility] [place] [facility] [address] [id number] [place] [address] Dec, [facility] [place] [facility] [address] [facility] [id number] [place] [address] Dec, [facility] [place] [facility] [address] [id number] [facility] [address] Dec, [facility] [place] [facility] [address] [id number] [place] [address] Dec, [facility] [place] [facility] [address] [id number] [facility] [address] Dec, [facility] [place] [facility] [address] [facility] [id number] [place] [address] Dec, [facility] [place] [facility] [address] [id number] [facility] [address] Dec, [facility] [place] [facility] [address] [id number] [facility] [address] Dec, [facility] [place] [facility] [address] [id number] [facility] [address] Dec, [facility] [place] [facility] [address] [facility] [id number] [facility] [address] 14 Dec, 2013 [facility] [place] [facility] [address] [facility] [id number] [place] [address] 12 Dec, 2013 [facility] [place] [facility] [address] [facility] [id number] [place] [address] Dec, [facility] [place] [facility] [address] [id number] [place] [address] 08 Dec, 2013 [facility] [place] [facility] [address] [facility] [id number] [place] [address] 08 Dec, 2013 [facility] [place] [facility] [address] [facility] [id number] [place] [address] Dec, [facility] [place] [facility] [address] [id number] [place] [address] Dec, [facility] [place] [facility] [address] [id number] [place] [address] Dec, [facility] [place] [facility] [address] [id number] [place] [address] Dec, [facility] [place] [facility] [address] [facility] [id number] [place] [address] Nov, [facility] [place] [facility] [address] [id number] [place] [address] Nov, [facility] [place] [facility] [address] [id number] [place] [address] Nov, [facility] [place] [facility] [address] [id number] [place] [address] Nov, [facility] [place] [facility] [address] [facility] [id number] [place] [address] Nov, [facility] [place] [facility] [address] [id number] [place] [address] Nov, [facility] [place] [facility] [address] [id number] [place] [address] Nov, [facility] [place] [facility] [address] [id number] [place] [address] Nov, [facility] [place] [facility] [address] [facility] [id number] [place] [address] 18 Nov, 2013 [facility] [place] [facility] [address] [id number] [place] [address] 18 Nov, 2013 [facility] [place] [facility] [address] [id number] [place] [address] 18 Nov, 2013 [facility] [place] [facility] [address] [id number] [place] [address] 18 Nov, 2013 [facility] [place] [facility] [address] [facility] [id number] [place] [address] Nov, [facility] [place] [facility] [address] [id number] [place] [address] 14 Nov, 2013 [facility] [place] [facility] [address] [id number] [place] [address] Nov, [facility] [place] [facility] [address] [id number] [place] [address] Nov, [facility] [place] [facility] [address] [id number] [place] [address] Oct, [facility] [place] [facility] [address] [id number] [place] [address] Oct, [facility] [place] [facility] [address] [id number] [place] [address] 24 Oct, 2013 [facility] [place] [facility] [address] [id number] [place] [address] Oct, [facility] [place] [facility] [address] [id number] [place] [address] 24 Oct, 2013 [facility] [place] [facility] [address] [id number] [place] [address] Oct, [facility] [place] [facility] [address] [id number] [place] [address] Oct, [facility] [place] [facility] [address] [id number] [place] [address] Oct, [facility] [place] [facility] [address] [id number] [place] [address] Oct, [facility] [place] [facility] [address] [id number] [place] [address] Oct, [facility] [place] [facility] [address] [facility] [id number] [place] [address] Oct, [facility] [place] [facility] [address] [id number] [place] [address] Oct, [facility] [place] [facility] [address] [id number] [place] [address] Oct, [facility] [place] [facility] [address] [id number] [place] [address] Oct, [facility] [place] [facility] [address] [id number] [place] [address] Oct, [facility] [place] [facility] [address] [id number] [place] [address] Sep, [facility] [place] [facility] [address] [id number] [place] [address] Sep, [facility] [place] [facility] [address] [id number] [place] [address] Sep, [facility] [place] [facility] [address] [id number] [place] [address] Sep, [facility] [place] [facility] [address] [id number] [place] [address] Sep, [facility] [place] [facility] [address] [id number] [place] [address] Sep, [facility] [place] [facility] [address] [id number] [place] [address] Sep, [facility] [place] [facility] [address] [id number] [place] [address] 10 Sep, 2013 [facility] [place] [facility] [address] [id number] [place] [address] 10 Sep, 2013 [facility] [place] [facility] [address] [id number] [place] [address] Sep, [facility] [address] [id number] [place] [address] Sep, [facility] [place] [facility] [address] [id number] [place] [address] Sep, [facility] [place] [facility] [address] [id number] [place] [address] Sep, [facility] [place] [facility] [address] [id number] [place] [address] Aug, [facility] [place] [facility] [address] [facility] [id number] [place] [address] Aug, [facility] [place] [facility] [address] [id number] [place] [address] Aug, [facility] [place] [facility] [address] [id number] [place] [address] 24 Aug, 2013 [facility] [place] [facility] [address] [id number] [place] [address] Aug, [facility] [place] [facility] [address] [id number] [place] [address] Aug, [facility] [place] [facility] [address] [id number] [place] [address] 16 Aug, 2013 [facility] [place] [facility] [address] [id number] [place] [address] Aug, [facility] [place] [facility] [address] [id number] [place] [address] Aug, [facility] [place] [facility] [address] [id number] [place] [address] Aug, [facility] [place] [facility] [address] [id number] [place] [address] 10 Aug, 2013 [facility] [place] [facility] [address] [id number] [place] [address] Aug, [facility] [place] [facility] [address] [id number] [place] [address] Aug, [facility] [place] [facility] [address] [id number] [place] [address] Aug, [facility] [place] [facility] [address] [id number] [place] [address] Jul, [facility] [place] [facility] [address] [id number] [place] [address] Jul, [facility] [place] [facility] [id number] [place] [address] Jul, [facility] [place] [facility] [address] [id number] [place] [address] Jul, [facility] [place] [facility] [address] [id number] [place] [address] Jul, [facility] [place] [facility] [address] [id number] [place] [address] Jul, [facility] [place] [facility] [id number] [place] [address] 14 Jul, 2013 [facility] [place] [facility] [id number] [place] [address] 14 Jul, 2013 [facility] [place] [facility] [address] [id number] [place] [address] Jul, [facility] [place] [facility] [address] [id number] [place] [address] Jul, [facility] [place] [facility] [address] [id number] [place] [address] 06 Jul, 2013 [facility] [place] [facility] [address] [id number] [place] [address] Jul, [facility] [place] [facility] [address] [id number] [place] [address] 05 Jul, 2013 [facility] [place] [facility] [id number] [place] [address] Jul, [facility] [place] [facility] [address] [id number] [place] [address] Jun, [facility] [place] [facility] [address] [id number] [place] [address] Jun, [facility] [place] [facility] [address] [place] [id number] [place] [address] 15 Jun, 2012 [facility] [place] [facility] [address] [id number] [place] [address] 15 Jun, 2012 [facility] [place] [facility] [address] [id number] [place] [address] 14 Jun, 2012 [facility] [place] [facility] [address] [id number] [place] [address] 24 Sep, 2012 [facility] [place] [facility] [address] [id number] [place] [address] 20 Sep, 2012 [facility] [place] [facility] [address] [id number] [place] [address] 20 Sep, 2012 [facility] [place] [facility] [address] [id number] [place] [address] 20 Sep, 2012 [facility] [place] [facility] [address] [id number] [place] [address] 19 Sep, 2012 [facility] [place] [facility] [address] [id number] [place] [address] 13 Sep, 2012 [facility] [place] [facility] [address] [id number] [place] [address] 12 Sep, 2012 [facility] [place] [facility] [address] [id number] [place] [address] 12 Sep, 2012 [facility] [place] [facility] [address] [id number] [place] [address] 11 Sep, 2012 [facility] [place] [facility] [address] [id number] [place] [address] 11 Sep, 2012 [facility] [place] [facility] [address] [id number] [place] [address] 11 Sep, 2012 [facility] [place] [facility] [address] [id number] [place] [address] 09 Sep, 2012 [facility] [place] [facility] [address] [id number] [place] [address] 05 Sep, 2012 [facility] [place] [facility] [address] [id number] [place] [address] May, [facility] [place] [facility] [address] [id number] [place] [address] May, [facility] [place] [facility] [address] [facility] [id number] [place] [address] Apr, [facility] [place] [facility] [address] [id number] [place] [address] Apr, [facility] [place] [facility] [address] [id number] [place] [address] Apr, [facility] [place] [facility] [address] [facility] [id number] [place] [address] Apr, [facility] [place] [facility] [address] [id number] [place] [address] Apr, [facility] [place] [facility] [address] [id number] [place] [address] Apr, [facility] [place] [facility] [address] [id number] [place] [address] Apr, [facility] [place] [facility] [address] [facility] [id number] [place] [address] Apr, [facility] [place] [facility] [address] [id number] [place] [address] Apr, [facility] [place] [facility] [address] [facility] [id number] [place] [address] Mar, [facility] [place] [facility] [address] [id number] [place] [address] Mar, [facility] [place] [facility] [address] [facility] [id number] [place] [address] Mar, [facility] [place] [facility] [address] [id number] [place] [address] Mar, [facility] [place] [facility] [address] [facility] [id number] [place] [address] Mar, [facility] [place] [facility] [address] [id number] [place] [address] Mar, [facility] [place] [facility] [address] [id number] [place] [address] Mar, [facility] [place] [facility] [address] [id number] [place] [address] Mar, [facility] [place] [facility] [address] [id number] [place] [address] Mar, [facility] [place] [facility] [address] [id number] [place] [address] Mar, [facility] [place] [facility] [address] [id number] [place] [address] Mar, [facility] [place] [facility] [address] [id number] [place] [address] Feb, [facility] [place] [facility] [address] [id number] [place] [address] Feb, [facility] [place] [facility] [address] [id number] [place] [address] Feb, [facility] [place] [facility] [address] [id number] [place] [address] Feb, [facility] [place] [facility] [address] [id number] [place] [address] Feb, [facility] [place] [facility] [address] [id number] [place] [address] Feb, [facility] [place] [facility] [address] [id number] [place] [address] Feb, [facility] [place] [facility] [address] [id number] [place] [address] Feb, [facility] [place] [facility] [address] [id number] [place] [address] Feb, [facility] [place] [facility] [address] [id number] [place] [address] January, [facility] [place] [facility] [address] [id number] [place] [address] January, [facility] [place] [facility] [address] [id number] [place] [address] January, [facility] [place] [facility] [address] [place] [id number] [place] [address] January, [facility] [address] [id number] [place] [address] January, [facility] [place] [facility] [address] [id number] [place] [address] January, [facility] [address] [id number] [place] [address] January, [facility] [place] [facility] [address] [id number] [place] [address] January, [facility] [address] [id number] [place] [address] January, [facility] [place] [facility] [address] [id number] [place] [address] January, [facility] [address] [id number] [place] [address] January, [facility] [place] [facility] [address] [id number] [place] [address] January, [facility] [place] [facility] [address] [id number] [place] [address] January, [facility] [place] [facility] [address] [id number] [place] [address] January, [facility] [place] [facility] [address] [id number] [place] [address] January, [facility] [place] [facility] [address] [id number] [place] [address] January, [facility] [place] [facility] [address] [id number] [place] [address] January, [facility] [place] [facility] [address] [id number] [place] [address] January, [facility] [place] [facility] [address] [id number] [place] [address] January, [facility] [place] [facility] [address] [id number] [place] [address] January, [facility] [address] [id number] [place] [address] January, [facility] [place] [facility] [address] [id number] [place] [address] January, [facility] [place] [facility] [address] [id number] [place] [address] January, [facility] [place] [facility] [address] [id number] [place] [address] Dec, [facility] [place] [facility] [address] [id number] [place] [address] Dec, [facility] [place] [facility] [address] [id number] [place] [address] Dec, [facility] [place] [facility] [address] [id number] [place] [address] Dec, [facility] [place] [facility] [address] [id number] [place] [address] Dec, [facility] [place] [facility] [address] [id number] [place] [address] Nov, [facility] [place] [facility] [address] [id number] [place] [address] Oct, [facility] [place] [facility] [address] [id number] [place] [address] Oct, [facility] [place] [facility] [address] [id number] [place] [address] Oct, [facility] [place] [facility] [address] [id number] [place] [address] Oct, [facility] [place] [facility] [address] [id number] [place] [address] Oct, [facility] [place] [facility] [address] [id number] [place] [address] Sep, [facility] [place] [facility] [address] [id number] [place] [address] Sep, [facility] [place] [facility] [address] [id number] [place] [address] Sep, [facility] [place] [facility] [address] [id number] [place] [address] Aug, [facility] [place] [facility] [address] [id number] [place] [address] Aug, [facility] [place] [facility] [address] [id number] [place] [address] Aug, [facility] [place] [facility] [address] [id number] [place] [address] Aug, [facility] [place] [facility] [address] [id number] [place] [address] Jul, [facility] [place] [facility] [address] [id number] [place] [address] Jul, [facility] [place] [facility] [address] [id number] [place] [address] Jul, [facility] [place] [facility] [address] [id number] [place] [address] Jul, [facility] [place] [facility] [address] [id number] [place] [address] Jul, [facility] [place] [facility] [address] [id number] [place] [address] Jul, [facility] [place] [facility] [address] [id number] [place] [address] Jun, [facility] [place] [facility] [address] [id number] [place] [address] Jun, [facility] [place] [facility] [address] [id number] [place] [address] Jun, [facility] [place] [facility] [id number] [place] [address] Jun, [facility] [place] [facility] [address] [id number] [place] [address] Jun, [facility] [place] [facility] [id number] [place] [address] Jun, [facility] [place] [facility] [address] [id number] [place] [address] Jun, [facility] [place] [facility] [address] [id number] [place] [address] Jun, [facility] [place] [facility] [address] [id number] [place] [address] Jun, [facility] [place] [facility] [address] [id number] [place] [address] Jun, [facility] [place] [facility] [address] [id number] [place] [address] May, [facility] [place] [facility] [address] [id number] [place] [address] May, [facility] [place] [facility] [address] [id number] [place] [address] May, [facility] [place] [facility] [address] [id number] [place] [address] Apr, [facility] [place] [facility] [address] [id number] [place] [address] Apr, [facility] [place] [facility] [address] [id number] [place] [address] Apr, [facility] [place] [facility] [address] [id number] [place] [address] Apr, [facility] [place] [facility] [address] [id number] [place] [address] Apr, [facility] [place] [facility] [address] [id number] [place] [address] Apr, [facility] [place] [facility] [address] [id number] [place] [address] Apr, [facility] [place] [facility] [address] [id number] [place] [address] Apr, [facility] [place] [facility] [address] [id number] [place] [address] Apr, [facility] [place] [facility] [address] [id number] [place] [address] Mar, [facility] [place] [facility] [address] [facility] [id number] [place] [address] Mar, [facility] [place] [facility] [address] [id number] [place] [address] Mar, [facility] [place] [facility] [address] [id number] [place] [address] Mar, [facility] [place] [facility] [address] [id number] [place] [address] Feb, [facility] [place] [facility] [address] [facility] [id number] [place] [address] Feb, [facility] [place] [facility] [address] [id number] [place] [address] Feb, [facility] [place] [facility] [address] [id number] [place] [address] January, [facility] [place] [facility] [address] [id number] [place] [address] January, [facility] [place] [facility] [address] [id number] [place] [address] January, [facility] [place] [facility] [address] [id number] [place] [address] January, [facility] [place] [facility] [address] [id number] [place] [address] January, [facility] [place] [facility] [address] [id number] [place] [address] Dec, [facility] [place] [facility] [address] [id number] [place] [address] Dec, [facility] [place] [facility] [address] [id number] [place] [address] 16 Dec, 2011 [facility] [place] [facility] [address] [id number] [place] [address] Oct, [facility] [place] [facility] [address] [id number] [place] [address] Oct, [facility] [place] [facility] [address] [id number] [place] [address] Oct, [facility] [place] [facility] [address] [id number] [place] [address] Sep, [facility] [place] [facility] [address] [id number] [place] [address] Sep, [facility] [address] [id number] [place] [address] Aug, [facility] [place] [facility] [address] [id number] [place] [address] Jul, [facility] [place] [facility] [address] [id number] [place] [address] Jul, [facility] [place] [facility] [address] [id number] [place] [address] Mar, [facility] [place] [facility] [address] [id number] [place] [address] Aug, [facility] [place] [facility] [address] [id number] [place] [address] Jul, [facility] [place] [facility] [address] [id number] [place] [address] Jul, [facility] [address] [id number] [place] [address] Jul, [facility] [address] [id number] [place] [address] Jul, [facility] [address] [id number] [place] [address] 14 Jun, 2010 [facility] [address] [id number] [place] [address] Jun, [facility] [address] [id number] [place] [address] Apr, [facility] [address] [id number] [place] [address] Aug, [facility] [address] [id number] [place] [address] Jul, [facility] [address] [id number] [place] [address] 17 Jul, 2009 [facility] [address] [id number] [place] [address] Jul, [facility] [address] [id number] [place] [address] 23 Jun, 2009 [facility] [id number] [place] [address] 10 May, 2009 [facility] [address] [id number] [place] [address] 14 Dec, 2008 [facility] [id number] [place] [address] Nov, [facility] [address] [id number] [place] [address] 10 Oct, 2008 [facility] [id number] [place] [address] Aug, [facility] [address] [id number] [place] [address] Aug, [facility] [id number] [place] [address] Jun, IMMUNIZATIONS No Known Immunizations SOCIAL HISTORY [...] x 3 day s 04/2012 Hospitalization History [facility] [place]- Right wrist injury 03/29/2018
--- OUTSIDE RECORDS SUMMARY | 2020-04-09 00:28 | XMS REPORT ---
Author Author Kateryna LAURENT Organization [facility] Address [address] [place] [address] Care Team Providers Care Head Shipper Name Role Phone YAMILETH LAURENT Unavailable PROBLEMS Type Condition ICD9-CM Code KZO38-CO Code Onset Dates Condition S tatus SNOMED Code Problem Irregular menses N92.6 Active 801 27899 Problem Migraine with aura and without status migrainosu s, not intractable G43.109 Active 9246334 Problem Uncontrolled type 2 diabetes mellitus with hyperglycemia E11.65 Active 613708366 Problem Morbid obesity due to excess calories E66.01 Active 278335810 Problem RLS (restless legs syndrome) G25.81 A ctive 23618334 Problem Morbid obesity E66.01 Active 33384 6002 ALLERGIES No Information ENCOUNTERS Encounter Location Date Diagnosis [place] [address] [address] 16 Sep, 2019 [place] [address] [address] 14 Sep, 2019 [place] [address] [address] 14 Sep, 2019 [place] [address] [address] 13 Sep, 2019 [place] [address] [address] 10 Sep, 2019 Pneumonia of left lower lobe due to infe ctious organism J18.9 and Migraine with aura and without status migrainosus, not intractable G43.109 [facility] [address] [address] 10 Sep, 2019 [facility] [address] [address] 10 Sep, 2019 [place] [address] [address] Sep, [facility] [address] [address] Sep, [facility] [address] [address] Sep, Pneumonia of left lower lobe due to infe ctious organism J18.9 and Migraine with aura and without status migrainosus, not intractable G43.109 [place] [address] [address] Aug, Irregular menses N92.6 ; Well woman exam Z01.419 ; Pelvic cramping R10.2 and Left breast lump N63.20 [place] [address] [address] Aug, [place] [address] [address] Aug, Well woman exam Z01.419 ; Left breast nenita mp N63.20 ; Irregular menses N92.6 ; Encounter for immunization Z23 ; Pelvic cramping R10.2 and Screening for cervical cancer Z12.4 [place] [address] [address] Aug, [place] [address] [address] Aug, [place] [address] [address] Aug, [place] [address] [address] Jul, [place] [address] [address] Jun, [place] [address] [address] Jun, [place] [address] [address] Jun, [facility] [address] [address] Jun, BMI 50.0-59.9, adult Z68.43 [place] [address] [address] Jun, [facility] [address] [facility] [id number] [address] [place] [address] May, Acute non-recurrent sinusiti s, unspecified location J01.90 ; Diarrhea, unspecified R19.7 ; Vomiting, unspecified R11.10 and Morbid obesity E66.01 [place] [address] [address] Apr, [place] [address] [address] Apr, Anemia due to other cause, not classifie d D64.89 and D-dimer, elevated R79.89 [place] [address] [address] Apr, [place] [address] [address] Apr, [place] [address] [address] Mar, Anemia due to other cause, not classifie d D64.89 and D-dimer, elevated R79.89 [place] [address] [address] Mar, Leg edema, right R60.0 ; High risk medic ation use Z79.899 and Morbid obesity E66.01 [place] [address] [address] Mar, BMI 50.0-59.9, adult Z68.43 [place] [address] [address] Mar, [place] [address] [address] January, Uncontrolled type 2 diabetes mellitus wi th hyperglycemia E11.65 ; RLS (restless legs syndrome) G25.81 and Morbid obesity E66.01 [place] [address] [address] 15 Oct, 2018 Lipoma of right lower extremity D17.23 [facility] [address] [address] Oct, Lipoma of right lower extremity D17.23 [facility] [address] [address] Sep, [place] [address] [address] Sep, [facility] [address] [address] Sep, [place] [address] [address] Sep, [facility] [address] [address] Sep, [facility] [address] [address] Aug, Uncontrolled type 2 diabetes mellitus wi th hyperglycemia E11.65 ; Morbid obesity due to excess calories E66.01 ; Lipoma of torso D17.1 and BMI 50.0-59.9, adult Z68.43 [place] [address] [address] Jun, Encounter for immunization Z23 [place] [address] [address] Jul, [place] [address] [address] Jun, Encounter for immunization Z23 [facility] [address] [address] May, [facility] [address] [address] Jun, Encounter for immunization Z23 [facility] [place] [facility] [address] [id number] [place] [address] May, [facility] [place] [facility] [address] [id number] [place] [address] May, [facility] [place] [facility] [address] [id number] [place] [address] Apr, [facility] [place] [facility] [address] [id number] [place] [address] Feb, [facility] [place] [facility] [address] [id number] [place] [address] Feb, [facility] [place] [facility] [address] [id number] [place] [address] Feb, [facility] [place] [facility] [address] [place] [id number] [place] [address] January, [facility] [place] [facility] [address] [place] [id number] [place] [address] January, [facility] [place] [facility] [address] [id number] [place] [address] Dec, [facility] [place] [facility] [address] [place] [id number] [place] [address] Dec, [facility] [place] [facility] [address] [place] [id number] [place] [address] Nov, [facility] [place] [facility] [address] [place] [id number] [place] [address] Nov, [facility] [place] [facility] [address] [id number] [place] [address] Nov, [facility] [place] [facility] [address] [place] [id number] [place] [address] Nov, [facility] [place] [facility] [address] [id number] [place] [address] Nov, [facility] [place] [facility] [address] [place] [id number] [place] [address] Nov, [facility] [place] [facility] [address] [id number] [place] [address] Nov, [facility] [place] [facility] [address] [facility] [id number] [place] [address] Oct, [facility] [place] [facility] [address] [facility] [id number] [place] [address] Oct, [facility] [place] [facility] [address] [id number] [place] [address] Oct, [facility] [place] [facility] [address] [id number] [place] [address] Oct, [facility] [place] [facility] [address] [id number] [place] [address] Oct, [facility] [place] [facility] [address] [id number] [place] [address] Sep, [facility] [place] [facility] [address] [id number] [place] [address] Sep, [facility] [place] [facility] [address] [id number] [place] [address] Sep, [facility] [place] [facility] [address] [id number] [place] [address] Sep, [facility] [place] [facility] [address] [id number] [place] [address] Sep, [facility] [place] [facility] [address] [id number] [place] [address] Sep, [facility] [place] [facility] [address] [id number] [place] [address] Sep, [facility] [place] [facility] [address] [id number] [place] [address] Sep, [facility] [place] [facility] [address] [id number] [place] [address] Sep, [facility] [place] [facility] [address] [id number] [place] [address] Sep, [facility] [place] [facility] [address] [id number] [place] [address] Aug, [facility] [place] [facility] [address] [facility] [id number] [place] [address] Aug, [facility] [place] [facility] [address] [facility] [id number] [place] [address] Aug, [facility] [place] [facility] [address] [id number] [place] [address] Aug, [facility] [place] [facility] [address] [id number] [place] [address] Aug, [facility] [place] [facility] [address] [facility] [id number] [place] [address] Aug, [facility] [place] [facility] [address] [id number] [place] [address] Aug, [facility] [place] [facility] [address] [id number] [place] [address] Aug, [facility] [place] [facility] [address] [id number] [place] [address] Aug, [facility] [place] [facility] [address] [id number] [place] [address] Aug, [facility] [place] [facility] [address] [id number] [place] [address] Aug, [facility] [place] [facility] [address] [id number] [place] [address] Aug, [facility] [place] [facility] [address] [id number] [place] [address] 18 Aug, 2014 [facility] [place] [facility] [address] [id number] [place] [address] 18 Aug, 2014 [facility] [place] [facility] [address] [id number] [place] [address] 17 Aug, 2014 [facility] [place] [facility] [address] [id number] [place] [address] 17 Aug, 2014 [facility] [place] [facility] [address] [id number] [place] [address] 16 Aug, 2014 [facility] [place] [facility] [address] [id number] [place] [address] 16 Aug, 2014 [facility] [place] [facility] [address] [id number] [place] [address] Aug, [facility] [place] [facility] [address] [id number] [place] [address] Aug, [facility] [place] [facility] [address] [id number] [place] [address] 08 Aug, 2014 [facility] [place] [facility] [address] [id number] [place] [address] 08 Aug, 2014 [facility] [place] [facility] [address] [id number] [place] [address] Aug, [facility] [place] [facility] [address] [id number] [place] [address] Aug, [facility] [place] [facility] [address] [id number] [place] [address] Jul, [facility] [place] [facility] [address] [id number] [place] [address] Jul, [facility] [place] [facility] [address] [id number] [place] [address] Jun, [facility] [place] [facility] [address] [id number] [place] [address] 27 Jun, 2014 [facility] [place] [facility] [address] [id number] [place] [address] 17 Jun, 2014 [facility] [place] [facility] [address] [id number] [place] [address] 17 Jun, 2014 [facility] [place] [facility] [address] [id number] [place] [address] 15 Jun, 2014 [facility] [place] [facility] [address] [place] [id number] [place] [address] 15 Jun, 2014 [facility] [place] [facility] [address] [id number] [place] [address] 14 Jun, 2014 [facility] [place] [facility] [address] [id number] [place] [address] 14 Jun, 2014 [facility] [place] [facility] [address] [facility] [id number] [place] [address] Jun, [facility] [place] [facility] [address] [id number] [place] [address] Jun, [facility] [place] [facility] [address] [id number] [place] [address] Jun, [facility] [place] [facility] [address] [id number] [place] [address] Jun, [facility] [place] [facility] [address] [id number] [place] [address] Jun, [facility] [place] [facility] [address] [id number] [place] [address] Jun, [facility] [place] [facility] [address] [id number] [place] [address] May, 2013 [facility] [place] [facility] [address] [id number] [place] [address] May, 2013 [facility] [place] [facility] [address] [id number] [place] [address] May, 2013 [facility] [place] [facility] [address] [id number] [place] [address] May, 2013 [facility] [place] [facility] [address] [id number] [place] [address] May, 2013 [facility] [place] [facility] [address] [id number] [place] [address] May, 2013 [facility] [place] [facility] [address] [id number] [place] [address] May, 2013 [facility] [place] [facility] [address] [id number] [place] [address] May, [facility] [place] [facility] [address] [id number] [place] [address] Apr, [facility] [place] [facility] [address] [id number] [place] [address] Apr, [facility] [place] [facility] [address] [id number] [place] [address] Apr, [facility] [place] [facility] [address] [facility] [id number] [facility] [place] [address] Apr, [facility] [place] [facility] [address] [facility] [id number] [facility] [place] [address] Apr, [facility] [place] [facility] [address] [facility] [id number] [facility] [place] [address] Apr, [facility] [place] [facility] [address] [facility] [id number] [place] [address] Apr, [facility] [place] [facility] [address] [facility] [id number] [place] [address] Apr, [facility] [place] [facility] [address] [facility] [id number] [place] [address] Apr, [facility] [place] [facility] [address] [facility] [id number] [facility] [place] [address] Mar, [facility] [place] [facility] [address] [id number] [facility] [place] [address] Mar, [facility] [place] [facility] [address] [facility] [id number] [facility] [place] [address] Mar, [facility] [place] [facility] [address] [id number] [facility] [place] [address] Feb, [facility] [place] [facility] [address] [facility] [id number] [facility] [place] [address] Feb, [facility] [place] [facility] [address] [id number] [place] [address] Feb, [facility] [place] [facility] [address] [facility] [id number] [facility] [place] [address] Feb, [facility] [place] [facility] [address] [facility] [id number] [place] [address] Feb, [facility] [place] [facility] [address] [facility] [id number] [place] [address] Feb, [facility] [place] [facility] [address] [id number] [facility] [place] [address] 16 Feb, 2014 [facility] [place] [facility] [address] [facility] [id number] [place] [address] Feb, [facility] [place] [facility] [address] [id number] [place] [address] Feb, [facility] [place] [facility] [address] [facility] [id number] [place] [address] Feb, [facility] [place] [facility] [address] [id number] [place] [address] Feb, [facility] [place] [facility] [address] [id number] [place] [address] Feb, [facility] [place] [facility] [address] [facility] [id number] [place] [address] Feb, [facility] [place] [facility] [address] [id number] [place] [address] Feb, [facility] [place] [facility] [address] [id number] [place] [address] Feb, [facility] [place] [facility] [address] [id number] [place] [address] Feb, [facility] [place] [facility] [address] [id number] [place] [address] January, [facility] [place] [facility] [address] [id number] [place] [address] January, [facility] [place] [facility] [address] [id number] [place] [address] January, [facility] [place] [facility] [address] [id number] [place] [address] January, [facility] [place] [facility] [address] [id number] [place] [address] January, [facility] [place] [facility] [address] [id number] [place] [address] January, [facility] [place] [facility] [address] [id number] [place] [address] January, [facility] [place] [facility] [address] [id number] [place] [address] January, [facility] [place] [facility] [address] [id number] [place] [address] January, [facility] [place] [facility] [address] [id number] [place] [address] January, [facility] [place] [facility] [address] [id number] [place] [address] January, [facility] [place] [facility] [address] [id number] [place] [address] January, [facility] [place] [facility] [address] [facility] [id number] [place] [address] January, [facility] [place] [facility] [address] [id number] [place] [address] January, [facility] [place] [facility] [address] [id number] [place] [address] January, [facility] [place] [facility] [address] [id number] [place] [address] January, [facility] [place] [facility] [address] [id number] [place] [address] January, [facility] [place] [facility] [address] [id number] [place] [address] January, [facility] [place] [facility] [address] [id number] [place] [address] January, [facility] [place] [facility] [address] [id number] [place] [address] January, [facility] [place] [facility] [address] [id number] [place] [address] January, [facility] [place] [facility] [address] [facility] [id number] [place] [address] January, [facility] [place] [facility] [address] [id number] [place] [address] January, [facility] [place] [facility] [address] [id number] [place] [address] January, [facility] [place] [facility] [address] [id number] [place] [address] January, [facility] [place] [facility] [address] [facility] [id number] [facility] [place] [address] January, [facility] [place] [facility] [address] [facility] [id number] [facility] [place] [address] Dec, [facility] [place] [facility] [address] [facility] [id number] [facility] [place] [address] Dec, [facility] [place] [facility] [address] [id number] [place] [address] Dec, [facility] [place] [facility] [address] [facility] [id number] [place] [address] Dec, [facility] [place] [facility] [address] [id number] [place] [address] Dec, [facility] [place] [facility] [address] [id number] [facility] [place] [address] Dec, [facility] [place] [facility] [address] [id number] [facility] [place] [address] Dec, [facility] [place] [facility] [address] [facility] [id number] [facility] [place] [address] Dec, [facility] [place] [facility] [address] [id number] [facility] [place] [address] Dec, [facility] [place] [facility] [address] [id number] [place] [address] Dec, [facility] [place] [facility] [address] [id number] [place] [address] Dec, [facility] [place] [facility] [address] [facility] [id number] [facility] [place] [address] Dec, [facility] [place] [facility] [address] [id number] [place] [address] Dec, [facility] [place] [facility] [address] [facility] [id number] [place] [address] Dec, [facility] [place] [facility] [address] [id number] [facility] [place] [address] Dec, [facility] [place] [facility] [address] [id number] [place] [address] Dec, [facility] [place] [facility] [address] [id number] [facility] [place] [address] Dec, [facility] [place] [facility] [address] [facility] [id number] [place] [address] Dec, [facility] [place] [facility] [address] [id number] [place] [address] Dec, [facility] [place] [facility] [address] [id number] [place] [address] Dec, [facility] [place] [facility] [address] [facility] [id number] [place] [address] Dec, [facility] [place] [facility] [address] [id number] [place] [address] Dec, [facility] [place] [facility] [address] [id number] [place] [address] Nov, [facility] [place] [facility] [address] [id number] [place] [address] Nov, [facility] [place] [facility] [address] [id number] [place] [address] Nov, [facility] [place] [facility] [address] [id number] [place] [address] Nov, [facility] [place] [facility] [address] [id number] [place] [address] Nov, [facility] [place] [facility] [address] [id number] [place] [address] Nov, [facility] [place] [facility] [address] [id number] [place] [address] Nov, [facility] [place] [facility] [address] [id number] [place] [address] Nov, [facility] [place] [facility] [address] [id number] [place] [address] Nov, [facility] [place] [facility] [address] [id number] [place] [address] Nov, [facility] [place] [facility] [address] [id number] [place] [address] Nov, [facility] [place] [facility] [address] [id number] [place] [address] Nov, [facility] [place] [facility] [address] [id number] [place] [address] Nov, [facility] [place] [facility] [address] [id number] [place] [address] Nov, [facility] [place] [facility] [address] [id number] [place] [address] Nov, [facility] [place] [facility] [address] [id number] [place] [address] Nov, [facility] [place] [facility] [address] [id number] [place] [address] Oct, [facility] [place] [facility] [address] [id number] [place] [address] Oct, [facility] [place] [facility] [address] [id number] [place] [address] Oct, [facility] [place] [facility] [address] [id number] [place] [address] Oct, [facility] [place] [facility] [address] [id number] [place] [address] Oct, [facility] [place] [facility] [address] [id number] [place] [address] Oct, [facility] [place] [facility] [address] [id number] [place] [address] Oct, [facility] [place] [facility] [address] [id number] [place] [address] Oct, [facility] [place] [facility] [address] [id number] [place] [address] Oct, [facility] [place] [facility] [address] [id number] [place] [address] Oct, [facility] [place] [facility] [address] [id number] [place] [address] 14 Oct, 2013 [facility] [place] [facility] [address] [id number] [place] [address] 14 Oct, 2013 [facility] [facility] [address] [id number] [place] [address] 04 Oct, 2013 [facility] [address] [id number] [place] [address] Oct, [facility] [address] [id number] [place] [address] Oct, [facility] [address] [id number] [place] [address] Sep, [facility] [address] [id number] [place] [address] Sep, [facility] [address] [id number] [place] [address] Sep, [facility] [address] [id number] [place] [address] Sep, [facility] [address] [id number] [place] [address] Sep, [facility] [address] [id number] [place] [address] Sep, [facility] [address] [id number] [place] [address] Sep, [facility] [address] [id number] [place] [address] Sep, [facility] [address] [id number] [place] [address] Sep, [facility] [address] [id number] [place] [address] Sep, [facility] [address] [id number] [place] [address] Sep, [facility] [address] [id number] [place] [address] Sep, [facility] [address] [id number] [place] [address] Sep, [facility] [address] [id number] [place] [address] Aug, [facility] [address] [id number] [place] [address] Aug, [facility] [address] [id number] [place] [address] Aug, [facility] [address] [id number] [place] [address] Aug, [facility] [address] [id number] [place] [address] Aug, [facility] [address] [id number] [place] [address] 17 Aug, 2013 [facility] [address] [id number] [place] [address] 16 Aug, 2013 [facility] [address] [id number] [place] [address] Aug, [facility] [address] [id number] [place] [address] Aug, [facility] [address] [id number] [place] [address] Aug, [facility] [address] [id number] [place] [address] Aug, [facility] [address] [id number] [place] [address] Aug, [facility] [address] [id number] [place] [address] Aug, [facility] [address] [id number] [place] [address] Aug, [facility] [address] [id number] [place] [address] Jul, [facility] [address] [id number] [place] [address] 19 Jul, 2013 [facility] [address] [id number] [place] [address] 18 Jul, 2013 [facility] [address] [id number] [place] [address] 18 Jul, 2013 [facility] [address] [id number] [place] [address] 14 Jul, 2013 [facility] [address] [id number] [place] [address] 14 Jul, 2013 [facility] [address] [id number] [place] [address] 14 Jul, 2013 [facility] [address] [id number] [place] [address] 14 Jul, 2013 [facility] [address] [id number] [place] [address] 07 Jul, 2013 [facility] [address] [id number] [place] [address] 07 Jul, 2013 [facility] [address] [id number] [place] [address] 06 Jul, 2013 [facility] [id number] [place] [address] 06 Jul, 2013 [facility] [address] [id number] [place] [address] 05 Jul, 2013 [facility] [address] [id number] [place] [address] 05 Jul, 2013 [facility] [address] [id number] [place] [address] Jun, [facility] [address] [id number] [place] [address] Jun, [facility] [address] [id number] [place] [address] 15 Jun, 2013 [facility] [address] [id number] [place] [address] 15 Jun, 2013 [facility] [address] [id number] [place] [address] 14 Oct, 2012 [facility] [address] [id number] [place] [address] 24 Sep, 2012 [facility] [address] [id number] [place] [address] 20 Sep, 2012 [facility] [address] [id number] [place] [address] 20 Sep, 2012 [facility] [address] [id number] [place] [address] 20 Sep, 2012 [facility] [address] [id number] [place] [address] 19 Sep, 2012 [facility] [address] [id number] [place] [address] 13 May, 2012 [facility] [address] [id number] [place] [address] 12 Sep, 2012 [facility] [address] [id number] [place] [address] 12 Sep, 2012 [facility] [address] [id number] [place] [address] 11 Sep, 2012 [facility] [address] [id number] [place] [address] 11 Sep, 2012 [facility] [address] [id number] [place] [address] 11 Sep, 2012 [facility] [address] [id number] [place] [address] 09 Sep, 2012 [facility] [address] [id number] [place] [address] 05 Sep, 2012 [facility] [address] [id number] [place] [address] 04 Sep, 2012 [facility] [address] [id number] [place] [address] 03 Sep, 2012 [facility] [address] [id number] [place] [address] Apr, [facility] [address] [id number] [place] [address] Apr, [facility] [address] [facility] [id number] [facility] [place] [address] Apr, [facility] [address] [facility] [id number] [place] [address] Apr, [facility] [address] [id number] [facility] [place] [address] Apr, [facility] [address] [facility] [id number] [facility] [place] [address] Apr, [facility] [address] [id number] [place] [address] Apr, [facility] [address] [id number] [place] [address] Apr, [facility] [address] [id number] [place] [address] Apr, [facility] [address] [id number] [place] [address] Mar, [facility] [address] [id number] [place] [address] Mar, [facility] [address] [id number] [place] [address] Mar, [facility] [address] [id number] [place] [address] Mar, [facility] [address] [id number] [place] [address] Mar, [facility] [address] [facility] [id number] [place] [address] Mar, [facility] [address] [id number] [place] [address] Mar, [facility] [address] [id number] [place] [address] Mar, [facility] [address] [id number] [place] [address] Mar, [facility] [address] [id number] [facility] [place] [address] Mar, [facility] [address] [id number] [facility] [place] [address] Mar, [facility] [address] [id number] [facility] [place] [address] Feb, [facility] [address] [id number] [facility] [place] [address] Feb, [facility] [address] [id number] [facility] [place] [address] Feb, [facility] [address] [id number] [place] [address] Feb, [facility] [address] [id number] [place] [address] Feb, [facility] [address] [id number] [place] [address] Feb, [facility] [address] [id number] [place] [address] Feb, [facility] [address] [id number] [place] [address] Feb, [facility] [address] [id number] [place] [address] Feb, [facility] [address] [id number] [place] [address] January, [facility] [address] [id number] [place] [address] January, [facility] [address] [id number] [place] [address] January, [facility] [address] [id number] [place] [address] January, [facility] [address] [id number] [place] [address] January, [facility] [address] [id number] [facility] [place] [address] January, [facility] [address] [id number] [place] [address] January, [facility] [address] [facility] [id number] [place] [address] January, [facility] [address] [id number] [place] [address] January, [facility] [address] [id number] [place] [address] January, [facility] [address] [id number] [place] [address] January, [facility] [address] [id number] [place] [address] January, [facility] [address] [id number] [place] [address] January, [facility] [address] [id number] [place] [address] January, [facility] [address] [id number] [place] [address] January, [facility] [address] [id number] [place] [address] January, [facility] [address] [id number] [place] [address] January, [facility] [address] [id number] [place] [address] January, [facility] [address] [id number] [place] [address] January, [facility] [address] [id number] [place] [address] January, [facility] [address] [id number] [place] [address] January, [facility] [address] [id number] [place] [address] January, [facility] [address] [id number] [place] [address] January, [facility] [address] [id number] [place] [address] Dec, [facility] [address] [id number] [place] [address] Dec, [facility] [address] [id number] [place] [address] Dec, [facility] [address] [id number] [place] [address] Dec, [facility] [address] [id number] [place] [address] Dec, [facility] [address] [id number] [place] [address] Nov, [facility] [address] [id number] [place] [address] Oct, [facility] [address] [id number] [place] [address] Oct, [facility] [address] [id number] [place] [address] Oct, [facility] [address] [id number] [place] [address] Oct, [facility] [address] [id number] [place] [address] Oct, [facility] [address] [id number] [place] [address] Sep, [facility] [address] [id number] [place] [address] Sep, [facility] [address] [id number] [place] [address] Sep, [facility] [address] [id number] [place] [address] Aug, [facility] [address] [id number] [place] [address] Aug, [facility] [address] [id number] [place] [address] Aug, [facility] [address] [id number] [place] [address] Aug, [facility] [address] [id number] [place] [address] Jul, [facility] [address] [id number] [place] [address] Jul, [facility] [address] [id number] [place] [address] Jul, [facility] [address] [id number] [place] [address] Jul, [facility] [id number] [place] [address] Jul, [facility] [address] [id number] [place] [address] Jul, [facility] [address] [id number] [place] [address] Jun, [facility] [address] [id number] [place] [address] Jun, [facility] [address] [id number] [place] [address] Jun, [facility] [address] [id number] [place] [address] Jun, [facility] [address] [id number] [place] [address] Jun, [facility] [id number] [place] [address] Jun, [facility] [address] [id number] [place] [address] Jun, [facility] [address] [id number] [place] [address] Jun, [facility] [address] [id number] [place] [address] Jun, [facility] [address] [id number] [place] [address] Jun, [facility] [address] [id number] [place] [address] May, [facility] [address] [id number] [place] [address] 08 May, 2012 [facility] [address] [id number] [place] [address] May, [facility] [address] [id number] [place] [address] Apr, [facility] [address] [id number] [place] [address] Apr, [facility] [address] [id number] [place] [address] Apr, [facility] [address] [id number] [place] [address] Apr, [facility] [address] [id number] [place] [address] Apr, [facility] [address] [id number] [place] [address] Apr, [facility] [address] [id number] [place] [address] Apr, [facility] [address] [id number] [place] [address] Apr, [facility] [address] [id number] [place] [address] Apr, [facility] [address] [id number] [place] [address] Mar, [facility] [address] [id number] [place] [address] Mar, [facility] [address] [id number] [place] [address] Mar, [facility] [address] [id number] [place] [address] Mar, [facility] [address] [id number] [place] [address] Feb, [facility] [address] [id number] [place] [address] Feb, [facility] [address] [id number] [place] [address] Feb, [facility] [address] [id number] [place] [address] January, [facility] [address] [id number] [place] [address] January, [facility] [address] [id number] [place] [address] January, [facility] [address] [id number] [place] [address] January, [facility] [address] [id number] [place] [address] January, [facility] [address] [id number] [place] [address] Dec, [facility] [address] [id number] [place] [address] Dec, [facility] [address] [id number] [place] [address] Dec, [facility] [address] [id number] [place] [address] Oct, [facility] [address] [id number] [place] [address] Oct, [facility] [address] [id number] [place] [address] Oct, [facility] [address] [id number] [place] [address] Sep, [facility] [address] [id number] [place] [address] 18 Sep, 2011 [facility] [address] [id number] [place] [address] 07 Aug, 2011 [facility] [address] [id number] [place] [address] 08 Jul, 2011 [facility] [address] [id number] [place] [address] 08 Jul, 2011 [facility] [address] [id number] [place] [address] Mar, [facility] [address] [id number] [place] [address] Aug, [facility] [address] [id number] [place] [address] Jul, [facility] [address] [id number] [place] [address] Jul, [facility] [address] [id number] [place] [address] Jul, [facility] [address] [id number] [place] [address] Jul, [facility] [address] [id number] [place] [address] 14 Jun, 2010 [facility] [address] [id number] [place] [address] Jun, [facility] [address] [id number] [place] [address] Apr, [facility] [address] [id number] [place] [address] Aug, [facility] [id number] [place] [address] 17 Jul, 2009 [facility] [address] [id number] [place] [address] 17 Jul, 2009 [facility] [address] [id number] [place] [address] 13 Jul, 2009 [facility] [address] [id number] [place] [address] 23 Jun, 2009 [facility] [id number] [place] [address] 10 May, 2009 [facility] [address] [id number] [place] [address] 14 Dec, 2008 [facility] [id number] [place] [address] Nov, [facility] [id number] [place] [address] Oct, [facility] [address] [address] Aug, [facility] [id number] [place] [address] Aug, [facility] [id number] [place] [address] Jun, IMMUNIZATIONS No Known Immunizations SOCIAL HISTORY [...] x 3 day s 04/2012 Hospitalization History [facility] [place]- Right wrist injury 03/29/2018
--- OUTSIDE RECORDS SUMMARY | 2020-04-09 00:28 | XMS REPORT ---
Author Author Kateryna UMANZOR Organization [facility] Address [address] [place] [address] Care Team Providers Care Organizational Development Director Name Role Phone ZENA UMANZOR Unavailable PROBLEMS Type Condition ICD9-CM Code JIA27-JC Code Onset Dates Condition S tatus SNOMED Code Problem Irregular menses N92.6 Active 801 11422 Problem Migraine with aura and without status migrainosu s, not intractable G43.109 Active 8800639 Problem Uncontrolled type 2 diabetes mellitus with hyperglycemia E11.65 Active 393197591 Problem Morbid obesity due to excess calories E66.01 Active 203214156 Problem RLS (restless legs syndrome) G25.81 A ctive [id number] Problem Morbid obesity E66.01 Active 86424 6002 ALLERGIES No Information ENCOUNTERS Encounter Location Date Diagnosis [facility] IN [facility] [address] [facility] [id number] [address] [place] [address] 09 Oct, 2019 Influenza J11.1 [facility] [address] [address] 16 Sep, 2019 [facility] [address] [address] Sep, [facility] [address] [address] 14 Sep, 2019 [facility] [address] [address] 13 Sep, 2019 [facility] [address] [address] 10 Sep, 2019 Pneumonia of left lower lobe due to infe ctious organism J18.9 and Migraine with aura and without status migrainosus, not intractable G43.109 [facility] [address] [address] Sep, [place] [address] [address] Sep, [place] [address] [address] Sep, [place] [address] [address] Sep, [place] [address] [address] 08 Sep, 2019 Pneumonia of left lower lobe due to infe ctious organism J18.9 and Migraine with aura and without status migrainosus, not intractable G43.109 [place] [address] [address] Aug, Irregular menses N92.6 ; Well woman exam Z01.419 ; Pelvic cramping R10.2 and Left breast lump N63.20 [place] [address] [address] Aug, [place] [address] [address] Aug, Well woman exam Z01.419 ; Left breast nenita mp N63.20 ; Irregular menses N92.6 ; Encounter for immunization Z23 ; Pelvic cramping R10.2 and Screening for cervical cancer Z12.4 [place] [address] [address] Aug, [place] [address] [address] Aug, [place] [address] [address] Aug, [place] [address] [address] Jul, [place] [address] [address] Jun, [place] [address] [address] Jun, [facility] [address] [address] Jun, [facility] [address] [address] Jun, BMI 50.0-59.9, adult Z68.43 [facility] [address] [address] 03 Jun, 2019 [facility] [address] [facility] [id number] [address] [address] May, Acute non-recurrent sinusiti s, unspecified location J01.90 ; Diarrhea, unspecified R19.7 ; Vomiting, unspecified R11.10 and Morbid obesity E66.01 [place] [address] [address] Apr, [place] [address] [address] Apr, Anemia due to other cause, not classifie d D64.89 and D-dimer, elevated R79.89 [place] [address] [address] Apr, [place] [address] [address] Apr, [place] [address] [address] Mar, Anemia due to other cause, not classifie d D64.89 and D-dimer, elevated R79.89 [place] [address] [address] Mar, Leg edema, right R60.0 ; High risk medic ation use Z79.899 and Morbid obesity E66.01 [place] [address] [address] Mar, BMI 50.0-59.9, adult Z68.43 [place] [address] [address] Mar, [facility] [address] [address] January, Uncontrolled type 2 diabetes mellitus wi th hyperglycemia E11.65 ; RLS (restless legs syndrome) G25.81 and Morbid obesity E66.01 [place] [address] [address] Oct, Lipoma of right lower extremity D17.23 [place] [address] [address] Oct, Lipoma of right lower extremity D17.23 [place] [address] [address] Sep, [place] [address] [address] Sep, [place] [address] [address] Sep, [place] [address] [address] Sep, [place] [address] [address] Sep, [place] [address] [address] Aug, Uncontrolled type 2 diabetes mellitus wi hyperglycemia E11.65 ; Morbid obesity due to excess calories E66.01 ; Lipoma of torso D17.1 and BMI 50.0-59.9, adult Z68.43 [place] [address] [address] Jun, Encounter for immunization Z23 [place] [address] [address] Jul, [place] [address] [address] Jun, Encounter for immunization Z23 [place] [address] [address] 30 May, 2016 [facility] [address] [id number] [place] [address] Jun, Encounter for immunization Z23 [facility] [place] [facility] [address] [id number] [place] [address] 29 May, 2015 [facility] [place] [facility] [address] [place] [id number] [place] [address] May, [facility] [place] [facility] [address] [id number] [place] [address] Apr, [facility] [place] [facility] [address] [id number] [place] [address] Feb, [facility] [place] [facility] [address] [place] [address] [id number] [place] [address] Feb, [facility] [place] [facility] [address] [place] [address] [id number] [place] [address] Feb, [facility] [place] [facility] [address] [place] [address] [id number] [place] [address] January, [facility] [place] [facility] [address] [place] [address] [id number] [place] [address] January, [facility] [place] [facility] [address] [id number] [place] [address] Dec, [facility] [place] [facility] [address] [id number] [place] [address] Dec, [facility] [place] [facility] [address] [id number] [place] [address] Nov, [facility] [place] [facility] [address] [id number] [place] [address] Nov, [facility] [place] [facility] [address] [place] [id number] [place] [address] Nov, [facility] [place] [facility] [address] [id number] [place] [address] Nov, [facility] [place] [facility] [address] [address] [id number] [place] [address] Nov, [facility] [place] [facility] [address] [id number] [place] [address] Nov, [facility] [place] [facility] [address] [id number] [place] [address] Nov, [facility] [place] [facility] [address] [id number] [place] [address] Oct, [facility] [place] [facility] [address] [id number] [place] [address] Oct, [facility] [place] [facility] [address] [id number] [place] [address] Oct, [facility] [place] [facility] [address] [id number] [place] [address] Oct, [facility] [place] [facility] [address] [id number] [place] [address] Oct, [facility] [place] [facility] [address] [id number] [place] [address] Sep, [facility] [place] [facility] [address] [id number] [place] [address] Sep, [facility] [place] [facility] [address] [id number] [place] [address] Sep, [facility] [place] [facility] [address] [id number] [place] [address] Sep, [facility] [place] [facility] [address] [id number] [place] [address] Sep, [facility] [place] [facility] [address] [id number] [place] [address] Sep, [facility] [place] [facility] [address] [id number] [place] [address] Sep, [facility] [place] [facility] [address] [id number] [place] [address] Sep, [facility] [place] [facility] [address] [id number] [place] [address] Sep, [facility] [place] [facility] [address] [id number] [place] [address] Sep, [facility] [place] [facility] [address] [id number] [place] [address] Aug, [facility] [place] [facility] [address] [id number] [place] [address] Aug, [facility] [place] [facility] [address] [id number] [place] [address] Aug, [facility] [place] [facility] [address] [id number] [place] [address] Aug, [facility] [place] [facility] [address] [id number] [place] [address] Aug, [facility] [place] [facility] [address] [id number] [place] [address] Aug, [facility] [place] [facility] [address] [id number] [place] [address] Aug, [facility] [place] [facility] [address] [id number] [place] [address] Aug, [facility] [place] [facility] [address] [id number] [place] [address] Aug, [facility] [place] [facility] [address] [id number] [place] [address] Aug, [facility] [place] [facility] [address] [id number] [place] [address] Aug, [facility] [place] [facility] [address] [id number] [place] [address] Aug, [facility] [place] [facility] [address] [id number] [place] [address] Aug, [facility] [place] [facility] [address] [id number] [place] [address] Aug, [facility] [place] [facility] [address] [id number] [place] [address] Aug, [facility] [place] [facility] [address] [id number] [place] [address] Aug, [facility] [place] [facility] [address] [id number] [place] [address] 16 Aug, 2013 [facility] [place] [facility] [address] [id number] [place] [address] 16 Aug, 2014 [facility] [place] [facility] [address] [id number] [place] [address] 12 Aug, 2014 [facility] [place] [facility] [address] [id number] [place] [address] 12 Aug, 2014 [facility] [place] [facility] [address] [id number] [place] [address] 08 Aug, 2014 [facility] [place] [facility] [address] [id number] [place] [address] 08 Aug, 2014 [facility] [place] [facility] [address] [id number] [place] [address] 05 Aug, 2014 [facility] [place] [facility] [address] [id number] [place] [address] 05 Aug, 2014 [facility] [place] [facility] [address] [id number] [place] [address] Jul, [facility] [place] [facility] [address] [id number] [place] [address] Jul, [facility] [place] [facility] [address] [id number] [place] [address] 27 Jun, 2014 [facility] [place] [facility] [address] [id number] [place] [address] 27 Jun, 2014 [facility] [place] [facility] [address] [id number] [place] [address] 17 Jun, 2014 [facility] [place] [facility] [address] [id number] [place] [address] 17 Jun, 2014 [facility] [place] [facility] [address] [id number] [place] [address] 15 Jun, 2014 [facility] [place] [facility] [address] [id number] [place] [address] 15 Jun, 2014 [facility] [place] [facility] [address] [id number] [place] [address] 14 Jun, 2014 [facility] [place] [facility] [address] [id number] [place] [address] 14 Jun, 2014 [facility] [place] [facility] [address] [id number] [place] [address] Jun, [facility] [place] [facility] [address] [id number] [place] [address] Jun, 2013 [facility] [place] [facility] [address] [id number] [place] [address] Jun, [facility] [place] [facility] [address] [id number] [place] [address] Jun, [facility] [place] [facility] [address] [id number] [place] [address] Jun, [facility] [place] [facility] [address] [id number] [place] [address] Jun, [facility] [place] [facility] [address] [id number] [place] [address] May, 2013 [facility] [place] [facility] [address] [id number] [place] [address] 26 May, 2013 [facility] [place] [facility] [address] [id number] [place] [address] May, 2013 [facility] [place] [facility] [address] [id number] [place] [address] 22 May, 2013 [facility] [place] [facility] [address] [id number] [place] [address] 04 May, 2013 [facility] [place] [facility] [address] [id number] [place] [address] 04 May, 2013 [facility] [place] [facility] [address] [id number] [place] [address] May, 2013 [facility] [place] [facility] [address] [id number] [place] [address] May, 2013 [facility] [place] [facility] [address] [id number] [place] [address] Apr, 2013 [facility] [place] [facility] [address] [id number] [facility] [place] [address] Apr, [facility] [place] [facility] [address] [id number] [place] [address] Apr, [facility] [place] [facility] [address] [facility] [id number] [place] [address] Apr, [facility] [place] [facility] [address] [id number] [facility] [place] [address] Apr, [facility] [place] [facility] [address] [facility] [id number] [place] [address] Apr, [facility] [place] [facility] [address] [facility] [id number] [place] [address] Apr, [facility] [place] [facility] [address] [id number] [place] [address] Apr, [facility] [place] [facility] [address] [id number] [facility] [place] [address] Apr, [facility] [place] [facility] [address] [id number] [facility] [place] [address] Mar, [facility] [place] [facility] [address] [id number] [facility] [place] [address] Mar, [facility] [place] [facility] [address] [id number] [facility] [place] [address] Mar, [facility] [place] [facility] [address] [id number] [facility] [place] [address] Feb, [facility] [place] [facility] [address] [id number] [facility] [place] [address] Feb, [facility] [place] [facility] [address] [facility] [id number] [facility] [place] [address] Feb, [facility] [place] [facility] [address] [id number] [place] [address] Feb, [facility] [place] [facility] [address] [facility] [id number] [facility] [place] [address] Feb, [facility] [place] [facility] [address] [id number] [facility] [place] [address] Feb, [facility] [place] [facility] [address] [id number] [facility] [place] [address] 16 Feb, 2014 [facility] [place] [facility] [address] [id number] [place] [address] Feb, [facility] [place] [facility] [address] [facility] [id number] [place] [address] Feb, [facility] [place] [facility] [address] [id number] [place] [address] Feb, [facility] [place] [facility] [address] [facility] [id number] [place] [address] Feb, [facility] [place] [facility] [address] [facility] [id number] [place] [address] Feb, [facility] [place] [facility] [address] [id number] [place] [address] Feb, [facility] [place] [facility] [address] [id number] [place] [address] Feb, [facility] [place] [facility] [address] [id number] [place] [address] Feb, [facility] [place] [facility] [address] [facility] [id number] [place] [address] Feb, [facility] [place] [facility] [address] [id number] [place] [address] January, [facility] [place] [facility] [address] [id number] [place] [address] January, [facility] [place] [facility] [address] [id number] [place] [address] January, [facility] [place] [facility] [address] [facility] [id number] [place] [address] January, [facility] [place] [facility] [address] [id number] [place] [address] January, [facility] [place] [facility] [address] [id number] [place] [address] January, [facility] [place] [facility] [address] [id number] [place] [address] January, [facility] [address] [id number] [place] [address] January, [facility] [place] [facility] [address] [facility] [id number] [place] [address] January, [facility] [place] [facility] [address] [facility] [id number] [place] [address] January, [facility] [place] [facility] [address] [id number] [place] [address] January, [facility] [place] [facility] [address] [facility] [id number] [place] [address] January, [facility] [place] [facility] [address] [id number] [place] [address] January, [facility] [place] [facility] [address] [id number] [place] [address] January, [facility] [place] [facility] [address] [id number] [place] [address] January, [facility] [place] [facility] [address] [id number] [place] [address] January, [facility] [place] [facility] [address] [id number] [place] [address] January, [facility] [place] [facility] [address] [id number] [place] [address] January, [facility] [place] [facility] [address] [id number] [place] [address] January, [facility] [place] [facility] [address] [id number] [place] [address] January, [facility] [place] [facility] [address] [id number] [place] [address] January, [facility] [place] [facility] [address] [id number] [place] [address] January, [facility] [place] [facility] [address] [id number] [place] [address] January, [facility] [place] [facility] [address] [id number] [place] [address] January, [facility] [place] [facility] [address] [id number] [facility] [place] [address] January, [facility] [place] [facility] [address] [id number] [facility] [place] [address] January, [facility] [place] [facility] [address] [id number] [facility] [place] [address] Dec, [facility] [place] [facility] [address] [id number] [place] [address] Dec, [facility] [place] [facility] [address] [id number] [facility] [place] [address] Dec, [facility] [place] [facility] [address] [id number] [place] [address] Dec, [facility] [place] [facility] [address] [id number] [facility] [place] [address] Dec, [facility] [place] [facility] [address] [id number] [facility] [place] [address] Dec, [facility] [place] [facility] [address] [id number] [facility] [place] [address] Dec, [facility] [place] [facility] [address] [id number] [facility] [place] [address] Dec, [facility] [place] [facility] [address] [id number] [place] [address] Dec, [facility] [place] [facility] [address] [id number] [place] [address] Dec, [facility] [place] [facility] [address] [id number] [facility] [place] [address] Dec, [facility] [place] [facility] [address] [id number] [place] [address] Dec, [facility] [place] [facility] [address] [id number] [facility] [place] [address] Dec, [facility] [place] [facility] [address] [id number] [facility] [place] [address] Dec, [facility] [place] [facility] [address] [facility] [id number] [facility] [place] [address] 12 Dec, 2013 [facility] [place] [facility] [address] [facility] [id number] [facility] [place] [address] Dec, [facility] [place] [facility] [address] [facility] [id number] [place] [address] Dec, [facility] [place] [facility] [address] [id number] [place] [address] Dec, [facility] [place] [facility] [address] [facility] [id number] [place] [address] Dec, [facility] [place] [facility] [address] [facility] [id number] [facility] [place] [address] Dec, [facility] [place] [facility] [address] [id number] [place] [address] Dec, [facility] [place] [facility] [address] [id number] [place] [address] Dec, [facility] [place] [facility] [address] [id number] [place] [address] Nov, [facility] [place] [facility] [address] [facility] [id number] [place] [address] Nov, [facility] [place] [facility] [address] [id number] [place] [address] Nov, [facility] [place] [facility] [address] [id number] [place] [address] Nov, [facility] [place] [facility] [address] [id number] [place] [address] Nov, [facility] [place] [facility] [address] [facility] [id number] [place] [address] 24 Nov, 2013 [facility] [place] [facility] [address] [id number] [place] [address] Nov, [facility] [place] [facility] [address] [id number] [place] [address] Nov, [facility] [place] [facility] [address] [id number] [place] [address] 18 Nov, 2013 [facility] [place] [facility] [address] [id number] [place] [address] 18 Nov, 2013 [facility] [place] [facility] [address] [id number] [place] [address] 18 Nov, 2013 [facility] [place] [facility] [address] [id number] [place] [address] 18 Nov, 2013 [facility] [place] [facility] [address] [id number] [place] [address] 14 Nov, 2013 [facility] [place] [facility] [address] [id number] [place] [address] 14 Nov, 2013 [facility] [place] [facility] [address] [id number] [place] [address] Nov, [facility] [place] [facility] [address] [id number] [place] [address] Nov, [facility] [place] [facility] [address] [id number] [place] [address] Oct, [facility] [place] [facility] [address] [id number] [place] [address] Oct, [facility] [place] [facility] [address] [id number] [place] [address] Oct, [facility] [place] [facility] [address] [id number] [place] [address] Oct, [facility] [place] [facility] [address] [id number] [place] [address] Oct, [facility] [place] [facility] [address] [id number] [place] [address] Oct, [facility] [place] [facility] [address] [id number] [place] [address] Oct, [facility] [place] [facility] [address] [id number] [place] [address] Oct, [facility] [place] [facility] [address] [id number] [place] [address] Oct, [facility] [place] [facility] [address] [id number] [place] [address] 17 Oct, 2013 [facility] [place] [facility] [address] [id number] [place] [address] Oct, [facility] [place] [facility] [address] [facility] [id number] [place] [address] Oct, [facility] [place] [facility] [address] [id number] [place] [address] Oct, [facility] [place] [facility] [address] [facility] [id number] [place] [address] Oct, [facility] [place] [facility] [address] [id number] [place] [address] Oct, [facility] [place] [facility] [address] [id number] [place] [address] Sep, [facility] [place] [facility] [address] [id number] [place] [address] Sep, [facility] [place] [facility] [address] [id number] [place] [address] Sep, [facility] [place] [facility] [address] [id number] [place] [address] Sep, [facility] [place] [facility] [address] [id number] [place] [address] Sep, [facility] [place] [facility] [address] [id number] [place] [address] Sep, [facility] [place] [facility] [address] [id number] [place] [address] Sep, [facility] [place] [facility] [address] [id number] [place] [address] Sep, [facility] [place] [facility] [address] [id number] [place] [address] Sep, [facility] [place] [facility] [address] [id number] [place] [address] Sep, [facility] [place] [facility] [address] [id number] [place] [address] Sep, [facility] [address] [id number] [place] [address] Sep, [facility] [place] [facility] [address] [id number] [place] [address] Sep, [facility] [place] [facility] [address] [id number] [place] [address] Aug, [facility] [place] [facility] [address] [id number] [place] [address] Aug, [facility] [place] [facility] [address] [id number] [place] [address] Aug, [facility] [place] [facility] [address] [id number] [place] [address] Aug, [facility] [place] [facility] [address] [id number] [place] [address] Aug, [facility] [place] [facility] [address] [id number] [place] [address] 17 Aug, 2013 [facility] [place] [facility] [address] [id number] [place] [address] 16 Aug, 2013 [facility] [place] [facility] [address] [id number] [place] [address] Aug, [facility] [place] [facility] [address] [id number] [place] [address] 12 Aug, 2013 [facility] [place] [facility] [address] [id number] [place] [address] Aug, [facility] [place] [facility] [address] [id number] [place] [address] 10 Aug, 2013 [facility] [place] [facility] [address] [id number] [place] [address] 10 Aug, 2013 [facility] [place] [facility] [address] [id number] [place] [address] Aug, [facility] [place] [facility] [address] [id number] [place] [address] Aug, [facility] [place] [facility] [address] [id number] [place] [address] 19 Jul, 2012 [facility] [place] [facility] [address] [id number] [place] [address] 19 Jul, 2013 [facility] [place] [facility] [address] [id number] [place] [address] 18 Jul, 2013 [facility] [place] [facility] [address] [id number] [place] [address] 18 Jul, 2013 [facility] [place] [facility] [address] [id number] [place] [address] 14 Jul, 2013 [facility] [place] [facility] [address] [id number] [place] [address] 14 Jul, 2013 [facility] [place] [facility] [address] [id number] [place] [address] 14 Jul, 2013 [facility] [place] [facility] [address] [id number] [place] [address] 14 Jul, 2013 [facility] [place] [facility] [address] [id number] [place] [address] 07 Jul, 2013 [facility] [place] [facility] [address] [id number] [place] [address] 07 Jul, 2013 [facility] [place] [facility] [address] [id number] [place] [address] 06 Jul, 2013 [facility] [place] [facility] [address] [id number] [place] [address] 06 Jul, 2013 [facility] [place] [facility] [address] [id number] [place] [address] 05 Jul, 2013 [facility] [place] [facility] [address] [id number] [place] [address] 05 Jul, 2013 [facility] [place] [facility] [address] [id number] [place] [address] Jun, [facility] [place] [facility] [address] [id number] [place] [address] 23 Jun, 2013 [facility] [place] [facility] [address] [id number] [place] [address] 15 Jun, 2013 [facility] [place] [facility] [address] [id number] [place] [address] 15 Jun, 2012 [facility] [place] [facility] [address] [id number] [place] [address] 14 Jun, 2012 [facility] [place] [facility] [address] [id number] [place] [address] 24 Sep, 2012 [facility] [place] [facility] [address] [id number] [place] [address] 20 Sep, 2012 [facility] [place] [facility] [address] [id number] [place] [address] 20 Sep, 2012 [facility] [place] [facility] [address] [id number] [place] [address] 20 Sep, 2012 [facility] [place] [facility] [address] [id number] [place] [address] 19 Sep, 2012 [facility] [place] [facility] [address] [id number] [place] [address] 13 Sep, 2012 [facility] [place] [facility] [address] [id number] [place] [address] 12 Sep, 2012 [facility] [place] [facility] [address] [id number] [place] [address] 12 Sep, 2012 [facility] [place] [facility] [address] [id number] [place] [address] 11 Sep, 2012 [facility] [place] [facility] [address] [id number] [place] [address] 11 Sep, 2012 [facility] [place] [facility] [address] [id number] [place] [address] 11 Sep, 2012 [facility] [place] [facility] [address] [id number] [place] [address] 09 Sep, 2012 [facility] [place] [facility] [address] [id number] [place] [address] 05 Sep, 2012 [facility] [place] [facility] [address] [id number] [place] [address] 04 Sep, 2012 [facility] [place] [facility] [address] [id number] [place] [address] May, [facility] [place] [facility] [address] [id number] [facility] [place] [address] Apr, [facility] [place] [facility] [address] [facility] [id number] [facility] [place] [address] Apr, [facility] [place] [facility] [address] [facility] [id number] [facility] [place] [address] Apr, [facility] [place] [facility] [address] [facility] [id number] [place] [address] Apr, [facility] [place] [facility] [address] [facility] [id number] [facility] [place] [address] Apr, [facility] [place] [facility] [address] [facility] [id number] [facility] [place] [address] Apr, [facility] [place] [facility] [address] [id number] [facility] [place] [address] Apr, [facility] [place] [facility] [address] [id number] [facility] [place] [address] Apr, [facility] [place] [facility] [address] [facility] [id number] [facility] [place] [address] Apr, [facility] [place] [facility] [address] [id number] [facility] [place] [address] Mar, [facility] [place] [facility] [address] [facility] [id number] [place] [address] Mar, [facility] [place] [facility] [address] [id number] [place] [address] Mar, [facility] [place] [facility] [address] [facility] [id number] [facility] [place] [address] Mar, [facility] [place] [facility] [address] [id number] [place] [address] Mar, [facility] [place] [facility] [address] [facility] [id number] [place] [address] Mar, [facility] [place] [facility] [address] [facility] [id number] [facility] [place] [address] Mar, [facility] [place] [facility] [address] [id number] [place] [address] Mar, [facility] [place] [facility] [address] [id number] [place] [address] Mar, [facility] [place] [facility] [address] [id number] [place] [address] Mar, [facility] [place] [facility] [address] [id number] [place] [address] Mar, [facility] [place] [facility] [address] [id number] [place] [address] Feb, [facility] [place] [facility] [address] [id number] [place] [address] Feb, [facility] [place] [facility] [address] [id number] [place] [address] Feb, [facility] [place] [facility] [address] [id number] [place] [address] Feb, [facility] [place] [facility] [address] [id number] [place] [address] Feb, [facility] [place] [facility] [address] [id number] [place] [address] Feb, [facility] [place] [facility] [address] [id number] [place] [address] Feb, [facility] [place] [facility] [address] [id number] [place] [address] Feb, [facility] [place] [facility] [address] [id number] [place] [address] Feb, [facility] [place] [facility] [address] [id number] [place] [address] January, [facility] [place] [facility] [address] [id number] [place] [address] January, [facility] [place] [facility] [address] [id number] [place] [address] January, [facility] [place] [facility] [address] [id number] [place] [address] January, [facility] [place] [facility] [address] [id number] [place] [address] January, [facility] [address] [id number] [place] [address] January, [facility] [place] [facility] [address] [id number] [place] [address] January, [facility] [address] [id number] [place] [address] January, [facility] [place] [facility] [address] [id number] [place] [address] January, [facility] [address] [id number] [place] [address] January, [facility] [place] [facility] [address] [id number] [place] [address], [facility] [address] [id number] [place] [address] January, [facility] [place] [facility] [address] [id number] [place] [address] January, [facility] [place] [facility] [address] [id number] [place] [address] January, [facility] [place] [facility] [address] [id number] [place] [address] January, [facility] [place] [facility] [address] [id number] [place] [address] January, [facility] [place] [facility] [address] [id number] [place] [address] January, [facility] [place] [facility] [address] [id number] [place] [address] January, [facility] [place] [facility] [address] [id number] [place] [address] January, [facility] [place] [facility] [address] [id number] [place] [address] January, [facility] [place] [facility] [address] [id number] [place] [address] January, [facility] [address] [id number] [facility] [place] [address] January, [facility] [place] [facility] [address] [id number] [facility] [place] [address] January, [facility] [place] [facility] [address] [id number] [facility] [place] [address] Dec, [facility] [place] [facility] [address] [id number] [facility] [place] [address] Dec, [facility] [place] [facility] [address] [id number] [facility] [place] [address] Dec, [facility] [place] [facility] [address] [id number] [place] [address] Dec, [facility] [place] [facility] [address] [id number] [place] [address] Dec, [facility] [place] [facility] [address] [id number] [facility] [place] [address] Nov, [facility] [place] [facility] [address] [id number] [place] [address] Oct, [facility] [place] [facility] [address] [id number] [place] [address] Oct, [facility] [place] [facility] [address] [id number] [place] [address] Oct, [facility] [place] [facility] [address] [id number] [place] [address] Oct, [facility] [place] [facility] [address] [id number] [place] [address] Oct, [facility] [place] [facility] [address] [id number] [place] [address] Sep, [facility] [place] [facility] [address] [id number] [place] [address] Sep, [facility] [place] [facility] [address] [id number] [place] [address] Sep, [facility] [place] [facility] [address] [id number] [place] [address] Aug, [facility] [place] [facility] [address] [id number] [place] [address] Aug, [facility] [place] [facility] [address] [id number] [place] [address] Aug, [facility] [place] [facility] [address] [id number] [place] [address] Aug, [facility] [place] [facility] [address] [id number] [place] [address] Jul, [facility] [place] [facility] [address] [id number] [place] [address] Jul, [facility] [place] [facility] [address] [id number] [place] [address] Jul, [facility] [place] [facility] [address] [id number] [place] [address] Jul, [facility] [place] [facility] [address] [id number] [place] [address] Jul, [facility] [place] [facility] [address] [id number] [place] [address] Jul, [facility] [place] [facility] [address] [id number] [place] [address] Jun, [facility] [place] [facility] [address] [id number] [place] [address] Jun, [facility] [place] [facility] [address] [id number] [place] [address] Jun, [facility] [place] [facility] [address] [id number] [place] [address] Jun, [facility] [place] [facility] [address] [id number] [place] [address] Jun, [facility] [place] [facility] [address] [id number] [place] [address] Jun, [facility] [place] [facility] [address] [id number] [place] [address] Jun, [facility] [place] [facility] [address] [id number] [place] [address] Jun, [facility] [place] [facility] [address] [id number] [place] [address] Jun, [facility] [place] [facility] [address] [id number] [place] [address] Jun, [facility] [place] [facility] [address] [id number] [place] [address] May, [facility] [place] [facility] [address] [id number] [place] [address] May, [facility] [place] [facility] [address] [id number] [place] [address] May, [facility] [place] [facility] [address] [id number] [place] [address] Apr, [facility] [place] [facility] [address] [id number] [place] [address] Apr, [facility] [place] [facility] [address] [id number] [place] [address] Apr, [facility] [place] [facility] [address] [id number] [place] [address] Apr, [facility] [place] [facility] [address] [id number] [place] [address] Apr, [facility] [place] [facility] [address] [id number] [place] [address] Apr, [facility] [place] [facility] [address] [id number] [place] [address] Apr, [facility] [place] [facility] [address] [id number] [place] [address] Apr, [facility] [place] [facility] [address] [id number] [place] [address] Apr, [facility] [address] [id number] [place] [address] Mar, [facility] [address] [id number] [place] [address] Mar, [facility] [address] [id number] [place] [address] Mar, [facility] [address] [id number] [place] [address] Mar, [facility] [address] [id number] [place] [address] Feb, [facility] [address] [id number] [place] [address] Feb, [facility] [address] [id number] [facility] [place] [address] Feb, [facility] [address] [id number] [place] [address] January, [facility] [address] [id number] [place] [address] January, [facility] [address] [id number] [place] [address] January, [facility] [address] [id number] [place] [address] January, [facility] [address] [id number] [place] [address] January, [facility] [address] [id number] [place] [address] Dec, [facility] [address] [id number] [place] [address] Dec, [facility] [address] [id number] [place] [address] 16 Dec, 2011 [facility] [address] [id number] [place] [address] Oct, [facility] [address] [id number] [place] [address] Oct, [facility] [address] [id number] [place] [address] Oct, [facility] [address] [id number] [place] [address] Sep, [facility] [address] [id number] [place] [address] Sep, [facility] [address] [id number] [place] [address] Aug, [facility] [address] [id number] [place] [address] Jul, [facility] [address] [id number] [place] [address] Jul, [facility] [address] [id number] [place] [address] Mar, [facility] [address] [id number] [place] [address] Aug, [facility] [address] [id number] [place] [address] Jul, [facility] [address] [id number] [place] [address] Jul, [facility] [address] [id number] [place] [address] Jul, [facility] [address] [id number] [place] [address] Jul, [facility] [address] [id number] [place] [address] Jun, [facility] [address] [id number] [place] [address] Jun, [facility] [address] [id number] [place] [address] Apr, [facility] [address] [id number] [place] [address] Aug, [facility] [address] [id number] [place] [address] Jul, [facility] [address] [id number] [place] [address] Jul, [facility] [address] [id number] [place] [address] 13 Jul, 2009 [facility] [id number] [place] [address] 23 Jun, 2009 [facility] [address] [id number] [place] [address] 10 May, 2009 [facility] [id number] [place] [address] 14 Dec, 2008 [facility] [address] [id number] [place] [address] Nov, [facility] [address] [address] 10 Oct, 2008 [facility] [address] [id number] [place] [address] 05 Aug, 2008 [facility] [id number] [place] [address] Aug, [facility] [address] [id number] [place] [address] 28 Jun, 2008 IMMUNIZATIONS No Known Immunizations [...] Hospitalization History [facility] [place]- Right wrist injury 03/29/2018
--- OUTSIDE RECORDS SUMMARY | 2020-04-09 00:29 | XMS REPORT ---
Author Author Kateryna LAURENT Organization [facility] Address [address] [place] [address] Care Team Providers Care Entry Specialist Name Role Phone YAMILETH LAURENT Unavailable PROBLEMS Type Condition ICD9-CM Code [id number] Code Onset Dates Condition S tatus SNOMED Code Problem Irregular menses N92.6 Active 801 84829 Problem Migraine with aura and without status migrainosu s, not intractable G43.109 Active 5646220 Problem Uncontrolled type 2 diabetes mellitus with hyperglycemia E11.65 Active 379326622 Problem Morbid obesity due to excess calories E66.01 Active 280872161 Problem RLS (restless legs syndrome) G25.81 A ctive 85491574 Problem Morbid obesity E66.01 Active 21058 6002 ALLERGIES No Information ENCOUNTERS Encounter Location Date Diagnosis [place] [address] [address] 16 Sep, 2019 [place] [address] [address] 14 Sep, 2019 [place] [address] [address] 14 Sep, 2019 [place] [address] [address] 13 Sep, 2019 [place] [address] [address] 10 Sep, 2019 Pneumonia of left lower lobe due to infe ctious organism J18.9 and Migraine with aura and without status migrainosus, not intractable G43.109 [facility] [address] [address] 10 Sep, 2019 [facility] [address] [address] 10 Sep, 2019 [place] [address] [address] Sep, [facility] [address] [address] Sep, [facility] [address] [address] Sep, Pneumonia of left lower lobe due to infe ctious organism J18.9 and Migraine with aura and without status migrainosus, not intractable G43.109 [place] [address] [address] Aug, Irregular menses N92.6 ; Well woman exam Z01.419 ; Pelvic cramping R10.2 and Left breast lump N63.20 [place] [address] [address] Aug, [place] [address] [address] Aug, Well woman exam Z01.419 ; Left breast nenita mp N63.20 ; Irregular menses N92.6 ; Encounter for immunization Z23 ; Pelvic cramping R10.2 and Screening for cervical cancer Z12.4 [place] [address] [address] Aug, [place] [address] [address] Aug, [place] [address] [address] Aug, [place] [address] [address] Jul, [place] [address] [address] Jun, [place] [address] [address] Jun, [place] [address] [address] Jun, [facility] [address] [address] Jun, BMI 50.0-59.9, adult Z68.43 [place] [address] [address] Jun, [facility] [address] [facility] [id number] [address] [place] [address] May, Acute non-recurrent sinusiti s, unspecified location J01.90 ; Diarrhea, unspecified R19.7 ; Vomiting, unspecified R11.10 and Morbid obesity E66.01 [place] [address] [address] Apr, [place] [address] [address] Apr, Anemia due to other cause, not classifie d D64.89 and D-dimer, elevated R79.89 [place] [address] [address] Apr, [place] [address] [address] Apr, [place] [address] [address] Mar, Anemia due to other cause, not classifie d D64.89 and D-dimer, elevated R79.89 [place] [address] [address] Mar, Leg edema, right R60.0 ; High risk medic ation use Z79.899 and Morbid obesity E66.01 [place] [address] [address] Mar, BMI 50.0-59.9, adult Z68.43 [place] [address] [address] Mar, [place] [address] [address] January, Uncontrolled type 2 diabetes mellitus wi th hyperglycemia E11.65 ; RLS (restless legs syndrome) G25.81 and Morbid obesity E66.01 [place] [address] [address] 15 Oct, 2018 Lipoma of right lower extremity D17.23 [facility] [address] [address] Oct, Lipoma of right lower extremity D17.23 [facility] [address] [address] Sep, [place] [address] [address] Sep, [facility] [address] [address] Sep, [place] [address] [address] Sep, [facility] [address] [address] Sep, [facility] [address] [address] Aug, Uncontrolled type 2 diabetes mellitus wi th hyperglycemia E11.65 ; Morbid obesity due to excess calories E66.01 ; Lipoma of torso D17.1 and BMI 50.0-59.9, adult Z68.43 [place] [address] [address] Jun, Encounter for immunization Z23 [place] [address] [address] Jul, [place] [address] [address] Jun, Encounter for immunization Z23 [facility] [address] [address] May, [facility] [address] [address] Jun, Encounter for immunization Z23 [facility] [place] [facility] [address] [id number] [place] [address] May, [facility] [place] [facility] [address] [id number] [place] [address] May, [facility] [place] [facility] [address] [id number] [place] [address] Apr, [facility] [place] [facility] [address] [id number] [place] [address] Feb, [facility] [place] [facility] [address] [id number] [place] [address] Feb, [facility] [place] [facility] [address] [id number] [place] [address] Feb, [facility] [place] [facility] [address] [place] [id number] [place] [address] January, [facility] [place] [facility] [address] [place] [id number] [place] [address] January, [facility] [place] [facility] [address] [id number] [place] [address] Dec, [facility] [place] [facility] [address] [place] [id number] [place] [address] Dec, [facility] [place] [facility] [address] [place] [id number] [place] [address] Nov, [facility] [place] [facility] [address] [place] [id number] [place] [address] Nov, [facility] [place] [facility] [address] [id number] [place] [address] Nov, [facility] [place] [facility] [address] [place] [id number] [place] [address] Nov, [facility] [place] [facility] [address] [id number] [place] [address] Nov, [facility] [place] [facility] [address] [place] [id number] [place] [address] Nov, [facility] [place] [facility] [address] [id number] [place] [address] Nov, [facility] [place] [facility] [address] [facility] [id number] [place] [address] Oct, [facility] [place] [facility] [address] [facility] [id number] [place] [address] Oct, [facility] [place] [facility] [address] [id number] [place] [address] Oct, [facility] [place] [facility] [address] [id number] [place] [address] Oct, [facility] [place] [facility] [address] [id number] [place] [address] Oct, [facility] [place] [facility] [address] [id number] [place] [address] Sep, [facility] [place] [facility] [address] [id number] [place] [address] Sep, [facility] [place] [facility] [address] [id number] [place] [address] Sep, [facility] [place] [facility] [address] [id number] [place] [address] Sep, [facility] [place] [facility] [address] [id number] [place] [address] Sep, [facility] [place] [facility] [address] [id number] [place] [address] Sep, [facility] [place] [facility] [address] [id number] [place] [address] Sep, [facility] [place] [facility] [address] [id number] [place] [address] Sep, [facility] [place] [facility] [address] [id number] [place] [address] Sep, [facility] [place] [facility] [address] [id number] [place] [address] Sep, [facility] [place] [facility] [address] [id number] [place] [address] Aug, [facility] [place] [facility] [address] [facility] [id number] [place] [address] Aug, [facility] [place] [facility] [address] [facility] [id number] [place] [address] Aug, [facility] [place] [facility] [address] [id number] [place] [address] Aug, [facility] [place] [facility] [address] [id number] [place] [address] Aug, [facility] [place] [facility] [address] [facility] [id number] [place] [address] Aug, [facility] [place] [facility] [address] [id number] [place] [address] Aug, [facility] [place] [facility] [address] [id number] [place] [address] Aug, [facility] [place] [facility] [address] [id number] [place] [address] Aug, [facility] [place] [facility] [address] [id number] [place] [address] Aug, [facility] [place] [facility] [address] [id number] [place] [address] Aug, [facility] [place] [facility] [address] [id number] [place] [address] Aug, [facility] [place] [facility] [address] [id number] [place] [address] 18 Aug, 2014 [facility] [place] [facility] [address] [id number] [place] [address] 18 Aug, 2014 [facility] [place] [facility] [address] [id number] [place] [address] 17 Aug, 2014 [facility] [place] [facility] [address] [id number] [place] [address] 17 Aug, 2014 [facility] [place] [facility] [address] [id number] [place] [address] 16 Aug, 2014 [facility] [place] [facility] [address] [id number] [place] [address] 16 Aug, 2014 [facility] [place] [facility] [address] [id number] [place] [address] Aug, [facility] [place] [facility] [address] [id number] [place] [address] Aug, [facility] [place] [facility] [address] [id number] [place] [address] 08 Aug, 2014 [facility] [place] [facility] [address] [id number] [place] [address] 08 Aug, 2014 [facility] [place] [facility] [address] [id number] [place] [address] Aug, [facility] [place] [facility] [address] [id number] [place] [address] Aug, [facility] [place] [facility] [address] [id number] [place] [address] Jul, [facility] [place] [facility] [address] [id number] [place] [address] Jul, [facility] [place] [facility] [address] [id number] [place] [address] Jun, [facility] [place] [facility] [address] [id number] [place] [address] 27 Jun, 2014 [facility] [place] [facility] [address] [id number] [place] [address] 17 Jun, 2014 [facility] [place] [facility] [address] [id number] [place] [address] 17 Jun, 2014 [facility] [place] [facility] [address] [id number] [place] [address] 15 Jun, 2014 [facility] [place] [facility] [address] [place] [id number] [place] [address] 15 Jun, 2014 [facility] [place] [facility] [address] [id number] [place] [address] 14 Jun, 2014 [facility] [place] [facility] [address] [id number] [place] [address] 14 Jun, 2014 [facility] [place] [facility] [address] [facility] [id number] [place] [address] Jun, [facility] [place] [facility] [address] [id number] [place] [address] Jun, [facility] [place] [facility] [address] [id number] [place] [address] Jun, [facility] [place] [facility] [address] [id number] [place] [address] Jun, [facility] [place] [facility] [address] [id number] [place] [address] Jun, [facility] [place] [facility] [address] [id number] [place] [address] Jun, [facility] [place] [facility] [address] [id number] [place] [address] May, 2013 [facility] [place] [facility] [address] [id number] [place] [address] May, 2013 [facility] [place] [facility] [address] [id number] [place] [address] May, 2013 [facility] [place] [facility] [address] [id number] [place] [address] May, 2013 [facility] [place] [facility] [address] [id number] [place] [address] May, 2013 [facility] [place] [facility] [address] [id number] [place] [address] May, 2013 [facility] [place] [facility] [address] [id number] [place] [address] May, 2013 [facility] [place] [facility] [address] [id number] [place] [address] May, [facility] [place] [facility] [address] [id number] [place] [address] Apr, [facility] [place] [facility] [address] [id number] [place] [address] Apr, [facility] [place] [facility] [address] [id number] [place] [address] Apr, [facility] [place] [facility] [address] [facility] [id number] [facility] [place] [address] Apr, [facility] [place] [facility] [address] [facility] [id number] [facility] [place] [address] Apr, [facility] [place] [facility] [address] [facility] [id number] [facility] [place] [address] Apr, [facility] [place] [facility] [address] [facility] [id number] [place] [address] Apr, [facility] [place] [facility] [address] [facility] [id number] [place] [address] Apr, [facility] [place] [facility] [address] [facility] [id number] [place] [address] Apr, [facility] [place] [facility] [address] [facility] [id number] [facility] [place] [address] Mar, [facility] [place] [facility] [address] [id number] [facility] [place] [address] Mar, [facility] [place] [facility] [address] [facility] [id number] [facility] [place] [address] Mar, [facility] [place] [facility] [address] [id number] [facility] [place] [address] Feb, [facility] [place] [facility] [address] [facility] [id number] [facility] [place] [address] Feb, [facility] [place] [facility] [address] [id number] [place] [address] Feb, [facility] [place] [facility] [address] [facility] [id number] [facility] [place] [address] Feb, [facility] [place] [facility] [address] [facility] [id number] [place] [address] Feb, [facility] [place] [facility] [address] [facility] [id number] [place] [address] Feb, [facility] [place] [facility] [address] [id number] [facility] [place] [address] 16 Feb, 2014 [facility] [place] [facility] [address] [facility] [id number] [place] [address] Feb, [facility] [place] [facility] [address] [id number] [place] [address] Feb, [facility] [place] [facility] [address] [facility] [id number] [place] [address] Feb, [facility] [place] [facility] [address] [id number] [place] [address] Feb, [facility] [place] [facility] [address] [id number] [place] [address] Feb, [facility] [place] [facility] [address] [facility] [id number] [place] [address] Feb, [facility] [place] [facility] [address] [id number] [place] [address] Feb, [facility] [place] [facility] [address] [id number] [place] [address] Feb, [facility] [place] [facility] [address] [id number] [place] [address] Feb, [facility] [place] [facility] [address] [id number] [place] [address] January, [facility] [place] [facility] [address] [id number] [place] [address] January, [facility] [place] [facility] [address] [id number] [place] [address] January, [facility] [place] [facility] [address] [id number] [place] [address] January, [facility] [place] [facility] [address] [id number] [place] [address] January, [facility] [place] [facility] [address] [id number] [place] [address] January, [facility] [place] [facility] [address] [id number] [place] [address] January, [facility] [place] [facility] [address] [id number] [place] [address] January, [facility] [place] [facility] [address] [id number] [place] [address] January, [facility] [place] [facility] [address] [id number] [place] [address] January, [facility] [place] [facility] [address] [id number] [place] [address] January, [facility] [place] [facility] [address] [id number] [place] [address] January, [facility] [place] [facility] [address] [facility] [id number] [place] [address] January, [facility] [place] [facility] [address] [id number] [place] [address] January, [facility] [place] [facility] [address] [id number] [place] [address] January, [facility] [place] [facility] [address] [id number] [place] [address] January, [facility] [place] [facility] [address] [id number] [place] [address] January, [facility] [place] [facility] [address] [id number] [place] [address] January, [facility] [place] [facility] [address] [id number] [place] [address] January, [facility] [place] [facility] [address] [id number] [place] [address] January, [facility] [place] [facility] [address] [id number] [place] [address] January, [facility] [place] [facility] [address] [facility] [id number] [place] [address] January, [facility] [place] [facility] [address] [id number] [place] [address] January, [facility] [place] [facility] [address] [id number] [place] [address] January, [facility] [place] [facility] [address] [id number] [place] [address] January, [facility] [place] [facility] [address] [facility] [id number] [facility] [place] [address] January, [facility] [place] [facility] [address] [facility] [id number] [facility] [place] [address] Dec, [facility] [place] [facility] [address] [facility] [id number] [facility] [place] [address] Dec, [facility] [place] [facility] [address] [id number] [place] [address] Dec, [facility] [place] [facility] [address] [facility] [id number] [place] [address] Dec, [facility] [place] [facility] [address] [id number] [place] [address] Dec, [facility] [place] [facility] [address] [id number] [facility] [place] [address] Dec, [facility] [place] [facility] [address] [id number] [facility] [place] [address] Dec, [facility] [place] [facility] [address] [facility] [id number] [facility] [place] [address] Dec, [facility] [place] [facility] [address] [id number] [facility] [place] [address] Dec, [facility] [place] [facility] [address] [id number] [place] [address] Dec, [facility] [place] [facility] [address] [id number] [place] [address] Dec, [facility] [place] [facility] [address] [facility] [id number] [facility] [place] [address] Dec, [facility] [place] [facility] [address] [id number] [place] [address] Dec, [facility] [place] [facility] [address] [facility] [id number] [place] [address] Dec, [facility] [place] [facility] [address] [id number] [facility] [place] [address] Dec, [facility] [place] [facility] [address] [id number] [place] [address] Dec, [facility] [place] [facility] [address] [id number] [facility] [place] [address] Dec, [facility] [place] [facility] [address] [facility] [id number] [place] [address] Dec, [facility] [place] [facility] [address] [id number] [place] [address] Dec, [facility] [place] [facility] [address] [id number] [place] [address] Dec, [facility] [place] [facility] [address] [facility] [id number] [place] [address] Dec, [facility] [place] [facility] [address] [id number] [place] [address] Dec, [facility] [place] [facility] [address] [id number] [place] [address] Nov, [facility] [place] [facility] [address] [id number] [place] [address] Nov, [facility] [place] [facility] [address] [id number] [place] [address] Nov, [facility] [place] [facility] [address] [id number] [place] [address] Nov, [facility] [place] [facility] [address] [id number] [place] [address] Nov, [facility] [place] [facility] [address] [id number] [place] [address] Nov, [facility] [place] [facility] [address] [id number] [place] [address] Nov, [facility] [place] [facility] [address] [id number] [place] [address] Nov, [facility] [place] [facility] [address] [id number] [place] [address] Nov, [facility] [place] [facility] [address] [id number] [place] [address] Nov, [facility] [place] [facility] [address] [id number] [place] [address] Nov, [facility] [place] [facility] [address] [id number] [place] [address] Nov, [facility] [place] [facility] [address] [id number] [place] [address] Nov, [facility] [place] [facility] [address] [id number] [place] [address] Nov, [facility] [place] [facility] [address] [id number] [place] [address] Nov, [facility] [place] [facility] [address] [id number] [place] [address] Nov, [facility] [place] [facility] [address] [id number] [place] [address] Oct, [facility] [place] [facility] [address] [id number] [place] [address] Oct, [facility] [place] [facility] [address] [id number] [place] [address] Oct, [facility] [place] [facility] [address] [id number] [place] [address] Oct, [facility] [place] [facility] [address] [id number] [place] [address] Oct, [facility] [place] [facility] [address] [id number] [place] [address] Oct, [facility] [place] [facility] [address] [id number] [place] [address] Oct, [facility] [place] [facility] [address] [id number] [place] [address] Oct, [facility] [place] [facility] [address] [id number] [place] [address] Oct, [facility] [place] [facility] [address] [id number] [place] [address] Oct, [facility] [place] [facility] [address] [id number] [place] [address] 14 Oct, 2013 [facility] [place] [facility] [address] [id number] [place] [address] 14 Oct, 2013 [facility] [place] [facility] [address] [id number] [place] [address] 04 Oct, 2013 [facility] [place] [facility] [address] [id number] [place] [address] Oct, [facility] [place] [facility] [address] [id number] [place] [address] Oct, [facility] [place] [facility] [address] [id number] [place] [address] Sep, [facility] [place] [facility] [address] [id number] [place] [address] Sep, [facility] [place] [facility] [address] [id number] [place] [address] Sep, [facility] [place] [facility] [address] [id number] [place] [address] Sep, [facility] [place] [facility] [address] [id number] [place] [address] Sep, [facility] [place] [facility] [address] [id number] [place] [address] Sep, [facility] [place] [facility] [address] [id number] [place] [address] Sep, [facility] [place] [facility] [address] [id number] [place] [address] Sep, [facility] [place] [facility] [address] [id number] [place] [address] Sep, [facility] [place] [facility] [address] [id number] [place] [address] Sep, [facility] [place] [facility] [address] [id number] [place] [address] Sep, [facility] [place] [facility] [address] [facility] [id number] [place] [address] Sep, [facility] [address] [id number] [place] [address] Sep, [facility] [address] [id number] [place] [address] Aug, [facility] [address] [id number] [place] [address] Aug, [facility] [address] [id number] [place] [address] Aug, [facility] [address] [id number] [place] [address] Aug, [facility] [address] [id number] [place] [address] Aug, [facility] [address] [id number] [place] [address] 17 Aug, 2013 [facility] [address] [id number] [place] [address] 16 Aug, 2013 [facility] [address] [id number] [place] [address] Aug, [facility] [address] [id number] [place] [address] Aug, [facility] [address] [id number] [place] [address] Aug, [facility] [address] [id number] [place] [address] Aug, [facility] [address] [id number] [place] [address] Aug, [facility] [address] [id number] [place] [address] Aug, [facility] [address] [id number] [place] [address] Aug, [facility] [address] [id number] [place] [address] Jul, [facility] [address] [id number] [place] [address] 19 Jul, 2013 [facility] [address] [id number] [place] [address] 18 Jul, 2013 [facility] [address] [id number] [place] [address] 18 Jul, 2013 [facility] [address] [id number] [place] [address] 14 Jul, 2013 [facility] [address] [id number] [place] [address] 14 Jul, 2013 [facility] [address] [id number] [place] [address] 14 Jul, 2013 [facility] [address] [id number] [place] [address] 14 Jul, 2013 [facility] [address] [id number] [place] [address] 07 Jul, 2013 [facility] [address] [id number] [place] [address] 07 Jul, 2013 [facility] [address] [id number] [place] [address] 06 Jul, 2013 [facility] [id number] [place] [address] 06 Jul, 2013 [facility] [address] [id number] [place] [address] 05 Jul, 2013 [facility] [address] [id number] [place] [address] 05 Jul, 2013 [facility] [address] [id number] [place] [address] Jun, [facility] [address] [id number] [place] [address] Jun, [facility] [address] [id number] [place] [address] 15 Jun, 2013 [facility] [address] [id number] [place] [address] 15 Jun, 2013 [facility] [address] [id number] [place] [address] 14 Oct, 2012 [facility] [address] [id number] [place] [address] 24 Sep, 2012 [facility] [address] [id number] [place] [address] 20 Sep, 2012 [facility] [address] [id number] [place] [address] 20 Sep, 2012 [facility] [address] [id number] [place] [address] 20 Sep, 2012 [facility] [address] [id number] [place] [address] 19 Sep, 2012 [facility] [address] [id number] [place] [address] 13 May, 2012 [facility] [address] [id number] [place] [address] 12 Sep, 2012 [facility] [address] [id number] [place] [address] 12 Sep, 2012 [facility] [address] [id number] [place] [address] 11 Sep, 2012 [facility] [address] [id number] [place] [address] 11 Sep, 2012 [facility] [address] [id number] [place] [address] 11 Sep, 2012 [facility] [address] [id number] [place] [address] 09 Sep, 2012 [facility] [address] [id number] [place] [address] 05 Sep, 2012 [facility] [address] [id number] [place] [address] 04 Sep, 2012 [facility] [address] [id number] [place] [address] 03 Sep, 2012 [facility] [address] [id number] [place] [address] Apr, [facility] [address] [id number] [place] [address] Apr, [facility] [address] [facility] [id number] [facility] [place] [address] Apr, [facility] [address] [facility] [id number] [place] [address] Apr, [facility] [address] [id number] [facility] [place] [address] Apr, [facility] [address] [facility] [id number] [facility] [place] [address] Apr, [facility] [address] [id number] [place] [address] Apr, [facility] [address] [id number] [place] [address] Apr, [facility] [address] [id number] [place] [address] Apr, [facility] [address] [id number] [place] [address] Mar, [facility] [address] [id number] [place] [address] Mar, [facility] [address] [id number] [place] [address] Mar, [facility] [address] [id number] [place] [address] Mar, [facility] [address] [id number] [place] [address] Mar, [facility] [address] [facility] [id number] [place] [address] Mar, [facility] [address] [id number] [place] [address] Mar, [facility] [address] [id number] [place] [address] Mar, [facility] [address] [id number] [place] [address] Mar, [facility] [address] [id number] [facility] [place] [address] Mar, [facility] [address] [id number] [facility] [place] [address] Mar, [facility] [address] [id number] [facility] [place] [address] Feb, [facility] [address] [id number] [facility] [place] [address] Feb, [facility] [address] [id number] [facility] [place] [address] Feb, [facility] [address] [id number] [place] [address] Feb, [facility] [address] [id number] [place] [address] Feb, [facility] [address] [id number] [place] [address] Feb, [facility] [address] [id number] [place] [address] Feb, [facility] [address] [id number] [place] [address] Feb, [facility] [address] [id number] [place] [address] Feb, [facility] [address] [id number] [place] [address] January, [facility] [address] [id number] [place] [address] January, [facility] [address] [id number] [place] [address] January, [facility] [address] [id number] [place] [address] January, [facility] [address] [id number] [place] [address] January, [facility] [address] [id number] [facility] [place] [address] January, [facility] [address] [id number] [place] [address] January, [facility] [address] [facility] [id number] [place] [address] January, [facility] [address] [id number] [place] [address] January, [facility] [address] [id number] [place] [address] January, [facility] [address] [id number] [place] [address] January, [facility] [address] [id number] [place] [address] January, [facility] [address] [id number] [place] [address] January, [facility] [address] [id number] [place] [address] January, [facility] [address] [id number] [place] [address] January, [facility] [address] [id number] [place] [address] January, [facility] [address] [id number] [place] [address] January, [facility] [address] [id number] [place] [address] January, [facility] [address] [id number] [place] [address] January, [facility] [address] [id number] [place] [address] January, [facility] [address] [id number] [place] [address] January, [facility] [address] [id number] [place] [address] January, [facility] [address] [id number] [place] [address] January, [facility] [address] [id number] [place] [address] Dec, [facility] [address] [id number] [place] [address] Dec, [facility] [address] [id number] [place] [address] Dec, [facility] [address] [id number] [place] [address] Dec, [facility] [address] [id number] [place] [address] Dec, [facility] [address] [id number] [place] [address] Nov, [facility] [address] [id number] [place] [address] Oct, [facility] [address] [id number] [place] [address] Oct, [facility] [address] [id number] [place] [address] Oct[facility] [address] [id number] [place] [address] Oct, [facility] [address] [id number] [place] [address] Oct, [facility] [address] [id number] [place] [address] Sep, [facility] [address] [id number] [place] [address] Sep, [facility] [address] [id number] [place] [address] Sep, [facility] [address] [id number] [place] [address] Aug, [facility] [address] [id number] [place] [address] Aug, [facility] [address] [id number] [place] [address] Aug, [facility] [address] [id number] [place] [address] Aug, [facility] [address] [id number] [place] [address] Jul, [facility] [address] [id number] [place] [address] Jul, [facility] [address] [id number] [place] [address] Jul, [facility] [address] [id number] [place] [address] Jul, [facility] [id number] [place] [address] Jul, [facility] [address] [id number] [place] [address] Jul, [facility] [address] [id number] [place] [address] Jun, [facility] [address] [id number] [place] [address] Jun, [facility] [address] [id number] [place] [address] Jun, [facility] [address] [id number] [place] [address] Jun, [facility] [address] [id number] [place] [address] Jun, [facility] [id number] [place] [address] Jun, [facility] [address] [id number] [place] [address] Jun, [facility] [address] [id number] [place] [address] Jun, [facility] [address] [id number] [place] [address] Jun, [facility] [address] [id number] [place] [address] Jun, [facility] [address] [id number] [place] [address] May, [facility] [address] [id number] [place] [address] 08 May, 2012 [facility] [address] [id number] [place] [address] May, [facility] [address] [id number] [place] [address] Apr, [facility] [address] [id number] [place] [address] Apr, [facility] [address] [id number] [place] [address] Apr, [facility] [address] [id number] [place] [address] Apr, [facility] [address] [id number] [place] [address] Apr, [facility] [address] [id number] [place] [address] Apr, [facility] [address] [id number] [place] [address] Apr, [facility] [address] [id number] [place] [address] Apr, [facility] [address] [id number] [place] [address] Apr, [facility] [address] [id number] [place] [address] Mar, [facility] [address] [id number] [place] [address] Mar, [facility] [address] [id number] [place] [address] Mar, [facility] [address] [id number] [place] [address] Mar, [facility] [address] [id number] [place] [address] Feb, [facility] [address] [id number] [place] [address] Feb, [facility] [address] [id number] [place] [address] Feb, [facility] [address] [id number] [place] [address] January, [facility] [address] [id number] [place] [address] January, [facility] [address] [id number] [place] [address] January, [facility] [address] [id number] [place] [address] January, [facility] [address] [id number] [place] [address] January, [facility] [address] [id number] [place] [address] Dec, [facility] [address] [id number] [place] [address] Dec, [facility] [address] [id number] [place] [address] Dec, [facility] [address] [id number] [place] [address] Oct, [facility] [address] [id number] [place] [address] Oct, [facility] [address] [id number] [place] [address] Oct, [facility] [address] [id number] [place] [address] Sep, [facility] [address] [id number] [place] [address] 18 Sep, 2011 [facility] [address] [id number] [place] [address] 07 Aug, 2011 [facility] [address] [id number] [place] [address] 08 Jul, 2011 [facility] [address] [id number] [place] [address] 08 Jul, 2011 [facility] [address] [id number] [place] [address] Mar, [facility] [address] [id number] [place] [address] Aug, [facility] [address] [id number] [place] [address] Jul, [facility] [address] [id number] [place] [address] Jul, [facility] [address] [id number] [place] [address] Jul, [facility] [address] [id number] [place] [address] Jul, [facility] [address] [id number] [place] [address] 14 Jun, 2010 [facility] [address] [id number] [place] [address] Jun, [facility] [address] [id number] [place] [address] Apr, [facility] [address] [id number] [place] [address] Aug, [facility] [id number] [place] [address] 17 Jul, 2009 [facility] [address] [id number] [place] [address] 17 Jul, 2009 [facility] [address] [id number] [place] [address] 13 Jul, 2009 [facility] [address] [id number] [place] [address] 23 Jun, 2009 [facility] [id number] [place] [address] 10 May, 2009 [facility] [address] [id number] [place] [address] 14 Dec, 2008 [facility] [id number] [place] [address] Nov, [facility] [id number] [place] [address] Oct, [facility] [address] [address] Aug, [facility] [id number] [place] [address] Aug, [facility] [id number] [place] [address] Jun, IMMUNIZATIONS No Known Immunizations SOCIAL HISTORY [...] x 3 day s 04/2012 Hospitalization History [facility] [place]- Right wrist injury 03/29/2018
--- OUTSIDE RECORDS SUMMARY | 2020-04-09 00:29 | XMS REPORT ---
Author Author Kateryna TAYLOR Organization [facility] Address [address] [place] [address] Care Team Providers Care Cloth Hand Name Role Phone SHAWANDAMerritt SUN Unavailable PROBLEMS Type Condition ICD9-CM Code [id number] Code Onset Dates Condition S tatus SNOMED Code Problem Irregular menses N92.6 Active 801 25018 Problem Migraine with aura and without status migrainosu s, not intractable G43.109 Active 3380331 Problem Uncontrolled type 2 diabetes mellitus with hyperglycemia E11.65 Active 978961580 Problem Morbid obesity due to excess calories E66.01 Active 824058730 Problem RLS (restless legs syndrome) G25.81 A ctive 64116235 Problem Morbid obesity E66.01 Active 10292 6002 ALLERGIES No Information ENCOUNTERS Encounter Location Date Diagnosis [place] [address] [address] 16 Sep, 2019 [place] [address] [address] 14 Sep, 2019 [place] [address] [address] 14 Sep, 2019 [place] [address] [address] 13 Sep, 2019 [place] [address] [address] 10 Sep, 2019 Pneumonia of left lower lobe due to infe ctious organism J18.9 and Migraine with aura and without status migrainosus, not intractable G43.109 [facility] [address] [address] 10 Sep, 2019 [place] [address] [address] 10 Sep, 2019 [facility] [address] [address] Sep, [facility] [address] [address] 08 Sep, 2019 [facility] [address] [address] 08 Sep, 2019 Pneumonia of left lower lobe due to infe ctious organism J18.9 and Migraine with aura and without status migrainosus, not intractable G43.109 [place] [address] [address] Aug, Irregular menses N92.6 ; Well woman exam Z01.419 ; Pelvic cramping R10.2 and Left breast lump N63.20 [place] [address] [address] Aug, [place] [address] [address] Aug, Well woman exam Z01.419 ; Left breast nenita mp N63.20 ; Irregular menses N92.6 ; Encounter for immunization Z23 ; Pelvic cramping R10.2 and Screening for cervical cancer Z12.4 [place] [address] [address] Aug, [place] [address] [address] Aug, [place] [address] [address] Aug, [place] [address] [address] Jul, [place] [address] [address] Jun, [place] [address] [address] Jun, [place] [address] [address] Jun, [facility] [address] [address] Jun, BMI 50.0-59.9, adult Z68.43 [place] [address] [address] Jun, [facility] [address] [facility] [id number] [address] [place] [address] May, Acute non-recurrent sinusiti s, unspecified location J01.90 ; Diarrhea, unspecified R19.7 ; Vomiting, unspecified R11.10 and Morbid obesity E66.01 [place] [address] [address] Apr, [place] [address] [address] Apr, Anemia due to other cause, not classifie d D64.89 and D-dimer, elevated R79.89 [place] [address] [address] Apr, [place] [address] [address] Apr, [place] [address] [address] Mar, Anemia due to other cause, not classifie d D64.89 and D-dimer, elevated R79.89 [place] [address] [address] Mar, Leg edema, right R60.0 ; High risk medic ation use Z79.899 and Morbid obesity E66.01 [place] [address] [address] Mar, BMI 50.0-59.9, adult Z68.43 [place] [address] [address] Mar, [place] [address] [address] January, Uncontrolled type 2 diabetes mellitus wi th hyperglycemia E11.65 ; RLS (restless legs syndrome) G25.81 and Morbid obesity E66.01 [place] [address] [address] 15 Oct, 2018 Lipoma of right lower extremity D17.23 [facility] [address] [address] Oct, Lipoma of right lower extremity D17.23 [facility] [address] [address] Sep, [place] [address] [address] Sep, [facility] [address] [address] Sep, [place] [address] [address] Sep, [facility] [address] [address] Sep, [place] [address] [address] Aug, Uncontrolled type 2 diabetes mellitus wi th hyperglycemia E11.65 ; Morbid obesity due to excess calories E66.01 ; Lipoma of torso D17.1 and BMI 50.0-59.9, adult Z68.43 [place] [address] [address] Jun, Encounter for immunization Z23 [place] [address] [address] Jul, [place] [address] [address] Jun, Encounter for immunization Z23 [facility] [address] [address] May, [facility] [address] [address] Jun, Encounter for immunization Z23 [facility] [place] [facility] [address] [id number] [place] [address] May, [facility] [place] [facility] [address] [id number] [place] [address] May, [facility] [place] [facility] [address] [id number] [place] [address] Apr, [facility] [place] [facility] [address] [place] [id number] [place] [address] Feb, [facility] [place] [facility] [address] [id number] [place] [address] Feb, [facility] [place] [facility] [address] [id number] [place] [address] Feb, [facility] [place] [facility] [address] [place] [id number] [place] [address] January, [facility] [place] [facility] [address] [place] [id number] [place] [address] January, [facility] [place] [facility] [address] [id number] [place] [address] Dec, [facility] [place] [facility] [address] [place] [id number] [place] [address] Dec, [facility] [place] [facility] [address] [id number] [place] [address] Nov, [facility] [place] [facility] [address] [place] [id number] [place] [address] Nov, [facility] [place] [facility] [address] [id number] [place] [address] Nov, [facility] [place] [facility] [address] [place] [id number] [place] [address] Nov, [facility] [place] [facility] [address] [id number] [place] [address] Nov, [facility] [place] [facility] [address] [place] [id number] [place] [address] Nov, [facility] [place] [facility] [address] [id number] [place] [address] Nov, [facility] [place] [facility] [address] [id number] [place] [address] Oct, [facility] [place] [facility] [address] [id number] [place] [address] Oct, [facility] [place] [facility] [address] [id number] [place] [address] Oct, [facility] [place] [facility] [address] [id number] [place] [address] Oct, [facility] [place] [facility] [address] [id number] [place] [address] Oct, [facility] [place] [facility] [address] [id number] [place] [address] Sep, [facility] [place] [facility] [address] [id number] [place] [address] Sep, [facility] [place] [facility] [address] [id number] [place] [address] Sep, [facility] [place] [facility] [address] [id number] [place] [address] Sep, [facility] [place] [facility] [address] [id number] [place] [address] Sep, [facility] [place] [facility] [address] [id number] [place] [address] Sep, [facility] [place] [facility] [address] [id number] [place] [address] Sep, [facility] [place] [facility] [address] [id number] [place] [address] Sep, [facility] [place] [facility] [address] [id number] [place] [address] Sep, [facility] [place] [facility] [address] [id number] [place] [address] Sep, [facility] [place] [facility] [address] [id number] [place] [address] Aug, [facility] [place] [facility] [address] [id number] [place] [address] Aug, [facility] [place] [facility] [address] [id number] [place] [address] Aug, [facility] [place] [facility] [address] [id number] [place] [address] Aug, [facility] [place] [facility] [address] [id number] [place] [address] Aug, [facility] [place] [facility] [address] [id number] [place] [address] Aug, [facility] [place] [facility] [address] [id number] [place] [address] Aug, [facility] [place] [facility] [address] [id number] [place] [address] Aug, [facility] [place] [facility] [address] [id number] [place] [address] Aug, [facility] [place] [facility] [address] [id number] [place] [address] Aug, [facility] [place] [facility] [address] [id number] [place] [address] Aug, [facility] [place] [facility] [address] [id number] [place] [address] Aug, [facility] [place] [facility] [address] [id number] [place] [address] Aug, [facility] [place] [facility] [address] [id number] [place] [address] 18 Aug, 2014 [facility] [place] [facility] [address] [id number] [place] [address] 17 Aug, 2014 [facility] [place] [facility] [address] [id number] [place] [address] 17 Aug, 2014 [facility] [place] [facility] [address] [id number] [place] [address] 16 Aug, 2014 [facility] [place] [facility] [address] [id number] [place] [address] 16 Aug, 2014 [facility] [place] [facility] [address] [id number] [place] [address] 12 Aug, 2014 [facility] [place] [facility] [address] [id number] [place] [address] 12 Aug, 2014 [facility] [place] [facility] [address] [id number] [place] [address] 08 Aug, 2014 [facility] [place] [facility] [address] [id number] [place] [address] 08 Aug, 2014 [facility] [place] [facility] [address] [id number] [place] [address] 05 Aug, 2014 [facility] [place] [facility] [address] [id number] [place] [address] 05 Aug, 2014 [facility] [place] [facility] [address] [id number] [place] [address] Jul, [facility] [place] [facility] [address] [id number] [place] [address] Jul, [facility] [place] [facility] [address] [id number] [place] [address] Jun, [facility] [place] [facility] [address] [id number] [place] [address] 27 Jun, 2014 [facility] [place] [facility] [address] [id number] [place] [address] 17 Jun, 2014 [facility] [place] [facility] [address] [id number] [place] [address] 17 Jun, 2014 [facility] [place] [facility] [address] [id number] [place] [address] 15 Jun, 2014 [facility] [place] [facility] [address] [id number] [place] [address] 15 Jun, 2014 [facility] [place] [facility] [address] [id number] [place] [address] 14 Jun, 2014 [facility] [place] [facility] [address] [id number] [place] [address] 14 Jun, 2014 [facility] [place] [facility] [address] [facility] [id number] [place] [address] 13 Jun, 2013 [facility] [place] [facility] [address] [id number] [place] [address] Jun, 2013 [facility] [place] [facility] [address] [id number] [place] [address] Jun, 2013 [facility] [place] [facility] [address] [id number] [place] [address] Jun, 2013 [facility] [place] [facility] [address] [id number] [place] [address] Jun, [facility] [place] [facility] [address] [id number] [place] [address] Jun, [facility] [place] [facility] [address] [id number] [place] [address] May, 2013 [facility] [place] [facility] [address] [id number] [place] [address] May, 2013 [facility] [place] [facility] [address] [id number] [place] [address] May, 2013 [facility] [place] [facility] [address] [id number] [place] [address] May, 2013 [facility] [place] [facility] [address] [id number] [place] [address] May, 2013 [facility] [place] [facility] [address] [id number] [place] [address] May, 2013 [facility] [place] [facility] [address] [id number] [place] [address] May, 2013 [facility] [place] [facility] [address] [id number] [place] [address] May, [facility] [place] [facility] [address] [id number] [place] [address] Apr, [facility] [place] [facility] [address] [id number] [place] [address] Apr, [facility] [place] [facility] [address] [id number] [place] [address] Apr, [facility] [place] [facility] [address] [facility] [id number] [facility] [place] [address] Apr, [facility] [place] [facility] [address] [facility] [id number] [facility] [place] [address] Apr, [facility] [place] [facility] [address] [id number] [facility] [place] [address] Apr, [facility] [place] [facility] [address] [facility] [id number] [place] [address] Apr, [facility] [place] [facility] [address] [facility] [id number] [facility] [place] [address] Apr, [facility] [place] [facility] [address] [facility] [id number] [place] [address] Apr, [facility] [place] [facility] [address] [id number] [facility] [place] [address] Mar, [facility] [place] [facility] [address] [id number] [facility] [place] [address] Mar, [facility] [place] [facility] [address] [facility] [id number] [facility] [place] [address] Mar, [facility] [place] [facility] [address] [id number] [facility] [place] [address] Feb, [facility] [place] [facility] [address] [id number] [place] [address] Feb, [facility] [place] [facility] [address] [id number] [place] [address] Feb, [facility] [place] [facility] [address] [facility] [id number] [facility] [place] [address] Feb, [facility] [place] [facility] [address] [id number] [place] [address] Feb, [facility] [place] [facility] [address] [facility] [id number] [place] [address] Feb, [facility] [place] [facility] [address] [id number] [place] [address] Feb, [facility] [place] [facility] [address] [id number] [facility] [place] [address] 16 Feb, 2014 [facility] [place] [facility] [address] [id number] [place] [address] Feb, [facility] [place] [facility] [address] [facility] [id number] [place] [address] Feb, [facility] [place] [facility] [address] [id number] [place] [address] Feb, [facility] [place] [facility] [address] [facility] [id number] [place] [address] Feb, [facility] [place] [facility] [address] [facility] [id number] [place] [address] Feb, [facility] [place] [facility] [address] [id number] [place] [address] Feb, [facility] [place] [facility] [address] [id number] [place] [address] Feb, [facility] [place] [facility] [address] [id number] [place] [address] Feb, [facility] [place] [facility] [address] [id number] [place] [address] January, [facility] [place] [facility] [address] [id number] [place] [address] January, [facility] [place] [facility] [address] [id number] [place] [address] January, [facility] [place] [facility] [address] [id number] [place] [address] January, [facility] [place] [facility] [address] [facility] [id number] [place] [address] January, [facility] [place] [facility] [address] [id number] [place] [address] January, [facility] [place] [facility] [address] [id number] [place] [address] January, [facility] [place] [facility] [address] [id number] [place] [address] January, [facility] [place] [facility] [address] [id number] [place] [address] January, [facility] [place] [facility] [address] [id number] [place] [address] January, [facility] [place] [facility] [address] [id number] [place] [address] January, [facility] [place] [facility] [address] [id number] [place] [address] January, [facility] [place] [facility] [address] [facility] [id number] [place] [address] January, [facility] [place] [facility] [address] [id number] [place] [address] January, [facility] [place] [facility] [address] [id number] [place] [address] January, [facility] [place] [facility] [address] [id number] [place] [address] January, [facility] [place] [facility] [address] [id number] [place] [address] January, [facility] [place] [facility] [address] [id number] [place] [address] January, [facility] [place] [facility] [address] [id number] [place] [address] January, [facility] [place] [facility] [address] [id number] [place] [address] January, [facility] [place] [facility] [address] [id number] [place] [address] January, [facility] [place] [facility] [address] [id number] [place] [address] January, [facility] [place] [facility] [address] [id number] [place] [address] January, [facility] [place] [facility] [address] [id number] [place] [address] January, [facility] [place] [facility] [address] [id number] [place] [address] January, [facility] [place] [facility] [address] [facility] [id number] [facility] [place] [address] January, [facility] [place] [facility] [address] [facility] [id number] [facility] [place] [address] Dec, [facility] [place] [facility] [address] [id number] [facility] [place] [address] Dec, [facility] [place] [facility] [address] [id number] [place] [address] Dec, [facility] [place] [facility] [address] [facility] [id number] [facility] [place] [address] Dec, [facility] [place] [facility] [address] [id number] [place] [address] Dec, [facility] [place] [facility] [address] [id number] [facility] [place] [address] Dec, [facility] [place] [facility] [address] [id number] [facility] [place] [address] Dec, [facility] [place] [facility] [address] [id number] [facility] [place] [address] Dec, [facility] [place] [facility] [address] [id number] [facility] [place] [address] Dec, [facility] [place] [facility] [address] [id number] [place] [address] Dec, [facility] [place] [facility] [address] [id number] [place] [address] Dec, [facility] [place] [facility] [address] [id number] [facility] [place] [address] Dec, [facility] [place] [facility] [address] [id number] [place] [address] Dec, [facility] [place] [facility] [address] [id number] [place] [address] Dec, [facility] [place] [facility] [address] [id number] [facility] [place] [address] Dec, [facility] [place] [facility] [address] [id number] [facility] [place] [address] 09 Dec, 2013 [facility] [place] [facility] [address] [facility] [id number] [place] [address] Dec, [facility] [place] [facility] [address] [facility] [id number] [place] [address] Dec, [facility] [place] [facility] [address] [id number] [place] [address] Dec, [facility] [place] [facility] [address] [id number] [place] [address] Dec, [facility] [place] [facility] [address] [facility] [id number] [place] [address] Dec, [facility] [place] [facility] [address] [id number] [place] [address] Dec, [facility] [place] [facility] [address] [id number] [place] [address] Nov, [facility] [place] [facility] [address] [id number] [place] [address] Nov, [facility] [place] [facility] [address] [id number] [place] [address] Nov, [facility] [place] [facility] [address] [id number] [place] [address] Nov, [facility] [place] [facility] [address] [id number] [place] [address] Nov, [facility] [place] [facility] [address] [id number] [place] [address] Nov, [facility] [place] [facility] [address] [facility] [id number] [place] [address] Nov, [facility] [place] [facility] [address] [id number] [place] [address] Nov, [facility] [place] [facility] [address] [id number] [place] [address] Nov, [facility] [place] [facility] [address] [id number] [place] [address] Nov, [facility] [place] [facility] [address] [id number] [place] [address] 18 Nov, 2013 [facility] [place] [facility] [address] [id number] [place] [address] 18 Nov, 2013 [facility] [place] [facility] [address] [id number] [place] [address] Nov, [facility] [place] [facility] [address] [id number] [place] [address] 14 Nov, 2013 [facility] [place] [facility] [address] [id number] [place] [address] Nov, [facility] [place] [facility] [address] [id number] [place] [address] Nov, [facility] [place] [facility] [address] [id number] [place] [address] Oct, [facility] [place] [facility] [address] [id number] [place] [address] Oct, [facility] [place] [facility] [address] [id number] [place] [address] Oct, [facility] [place] [facility] [address] [id number] [place] [address] Oct, [facility] [place] [facility] [address] [id number] [place] [address] 24 Oct, 2013 [facility] [place] [facility] [address] [id number] [place] [address] 24 Oct, 2013 [facility] [place] [facility] [address] [id number] [place] [address] Oct, [facility] [place] [facility] [address] [id number] [place] [address] Oct, [facility] [place] [facility] [address] [id number] [place] [address] Oct, [facility] [place] [facility] [address] [id number] [place] [address] 17 Oct, 2013 [facility] [place] [facility] [address] [id number] [place] [address] 14 Oct, 2013 [facility] [place] [facility] [address] [id number] [place] [address] 14 Oct, 2013 [facility] [place] [facility] [address] [facility] [id number] [place] [address] 04 Oct, 2013 [facility] [place] [facility] [address] [id number] [place] [address] Oct, [facility] [place] [facility] [address] [id number] [place] [address] Oct, [facility] [place] [facility] [address] [id number] [place] [address] Sep, [facility] [place] [facility] [address] [id number] [place] [address] Sep, [facility] [place] [facility] [address] [id number] [place] [address] Sep, [facility] [place] [facility] [address] [id number] [place] [address] Sep, [facility] [place] [facility] [address] [id number] [place] [address] Sep, [facility] [place] [facility] [address] [id number] [place] [address] Sep, [facility] [place] [facility] [address] [id number] [place] [address] Sep, [facility] [place] [facility] [address] [id number] [place] [address] Sep, [facility] [place] [facility] [address] [id number] [place] [address] Sep, [facility] [place] [facility] [address] [id number] [place] [address] Sep, [facility] [place] [facility] [address] [id number] [place] [address] Sep, [facility] [place] [facility] [address] [id number] [place] [address] Sep, [facility] [place] [facility] [address] [id number] [place] [address] Sep, [facility] [place] [facility] [address] [id number] [place] [address] Aug, [facility] [place] [facility] [address] [id number] [place] [address] Aug, [facility] [place] [facility] [address] [id number] [place] [address] Aug, [facility] [place] [facility] [address] [id number] [place] [address] Aug, [facility] [place] [facility] [address] [id number] [place] [address] Aug, [facility] [place] [facility] [address] [id number] [place] [address] 17 Aug, 2013 [facility] [place] [facility] [address] [id number] [place] [address] 16 Aug, 2013 [facility] [place] [facility] [address] [id number] [place] [address] 16 Aug, 2013 [facility] [place] [facility] [address] [id number] [place] [address] Aug, [facility] [place] [facility] [address] [id number] [place] [address] Aug, [facility] [place] [facility] [address] [id number] [place] [address] Aug, [facility] [place] [facility] [address] [id number] [place] [address] Aug, [facility] [place] [facility] [address] [id number] [place] [address] Aug, [facility] [place] [facility] [address] [id number] [place] [address] Aug, [facility] [place] [facility] [address] [id number] [place] [address] Jul, [facility] [place] [facility] [address] [id number] [place] [address] 19 Jul, 2012 [facility] [place] [facility] [address] [id number] [place] [address] 18 Jul, 2013 [facility] [place] [facility] [address] [id number] [place] [address] 18 Jul, 2013 [facility] [place] [facility] [address] [id number] [place] [address] 14 Jul, 2013 [facility] [place] [facility] [address] [id number] [place] [address] 14 Jul, 2013 [facility] [place] [facility] [address] [id number] [place] [address] 14 Jul, 2013 [facility] [place] [facility] [address] [id number] [place] [address] 14 Jul, 2013 [facility] [place] [facility] [address] [id number] [place] [address] 07 Jul, 2013 [facility] [place] [facility] [address] [id number] [place] [address] 07 Jul, 2013 [facility] [place] [facility] [address] [id number] [place] [address] 06 Jul, 2013 [facility] [place] [facility] [address] [id number] [place] [address] 06 Jul, 2013 [facility] [place] [facility] [address] [id number] [place] [address] 05 Jul, 2013 [facility] [place] [facility] [address] [id number] [place] [address] 05 Jul, 2013 [facility] [place] [facility] [address] [id number] [place] [address] Jun, [facility] [place] [facility] [address] [id number] [place] [address] Jun, [facility] [place] [facility] [address] [id number] [place] [address] 15 Jun, 2013 [facility] [place] [facility] [address] [id number] [place] [address] 15 Jun, 2013 [facility] [place] [facility] [address] [id number] [place] [address] 14 Oct, 2012 [facility] [place] [facility] [address] [id number] [place] [address] 24 Sep, 2012 [facility] [place] [facility] [address] [id number] [place] [address] 20 Sep, 2012 [facility] [place] [facility] [address] [id number] [place] [address] 20 Sep, 2012 [facility] [place] [facility] [address] [id number] [place] [address] 20 Sep, 2012 [facility] [place] [facility] [address] [id number] [place] [address] 19 Sep, 2012 [facility] [place] [facility] [address] [id number] [place] [address] 13 Sep, 2012 [facility] [place] [facility] [address] [id number] [place] [address] 12 Sep, 2012 [facility] [place] [facility] [address] [id number] [place] [address] 12 Sep, 2012 [facility] [place] [facility] [address] [id number] [place] [address] 11 Sep, 2012 [facility] [place] [facility] [address] [id number] [place] [address] 11 Sep, 2012 [facility] [place] [facility] [address] [id number] [place] [address] 11 Sep, 2012 [facility] [place] [facility] [address] [id number] [place] [address] 09 Sep, 2012 [facility] [place] [facility] [address] [id number] [place] [address] 05 Sep, 2012 [facility] [place] [facility] [address] [id number] [place] [address] 04 Sep, 2012 [facility] [place] [facility] [address] [id number] [place] [address] 03 Sep, 2012 [facility] [place] [facility] [address] [id number] [place] [address] Apr, [facility] [place] [facility] [address] [id number] [facility] [place] [address] Apr, [facility] [place] [facility] [address] [id number] [place] [address] Apr, [facility] [place] [facility] [address] [facility] [id number] [facility] [place] [address] Apr, [facility] [place] [facility] [address] [id number] [place] [address] Apr, [facility] [place] [facility] [address] [id number] [place] [address] Apr, [facility] [place] [facility] [address] [id number] [facility] [place] [address] Apr, [facility] [place] [facility] [address] [facility] [id number] [facility] [place] [address] Apr, [facility] [place] [facility] [address] [id number] [facility] [place] [address] Apr, [facility] [place] [facility] [address] [facility] [id number] [place] [address] Mar, [facility] [place] [facility] [address] [id number] [facility] [place] [address] Mar, [facility] [place] [facility] [address] [id number] [facility] [place] [address] Mar, [facility] [place] [facility] [address] [id number] [facility] [place] [address] Mar, [facility] [place] [facility] [address] [facility] [id number] [facility] [place] [address] Mar, [facility] [place] [facility] [address] [id number] [facility] [place] [address] Mar, [facility] [place] [facility] [address] [facility] [id number] [place] [address] Mar, [facility] [place] [facility] [address] [id number] [facility] [place] [address] Mar, [facility] [place] [facility] [address] [id number] [place] [address] Mar, [facility] [place] [facility] [address] [facility] [id number] [facility] [place] [address] Mar, [facility] [place] [facility] [address] [id number] [place] [address] Mar, [facility] [place] [facility] [address] [id number] [place] [address] Feb, [facility] [place] [facility] [address] [id number] [place] [address] Feb, [facility] [place] [facility] [address] [id number] [place] [address] Feb, [facility] [place] [facility] [address] [id number] [place] [address] Feb, [facility] [place] [facility] [address] [id number] [place] [address] Feb, [facility] [place] [facility] [address] [id number] [place] [address] Feb, [facility] [place] [facility] [address] [id number] [place] [address] Feb, [facility] [place] [facility] [address] [id number] [place] [address] Feb, [facility] [place] [facility] [address] [id number] [place] [address] Feb, [facility] [place] [facility] [address] [id number] [place] [address] January, [facility] [place] [facility] [address] [id number] [place] [address] January, [facility] [place] [facility] [address] [id number] [place] [address] January, [facility] [place] [facility] [address] [id number] [place] [address] January, [facility] [place] [facility] [address] [id number] [place] [address] January, [facility] [place] [facility] [address] [id number] [place] [address] January, [facility] [address] [id number] [place] [address] January, [facility] [place] [facility] [address] [id number] [place] [address] January, [facility] [address] [id number] [place] [address] January, [facility] [place] [facility] [address] [id number] [place] [address] January, [facility] [address] [id number] [place] [address] January, [facility] [place] [facility] [address] [id number] [place] [address] January, [facility] [address] [id number] [place] [address] January, [facility] [place] [facility] [address] [id number] [place] [address] January, [facility] [place] [facility] [address] [id number] [place] [address] January, [facility] [place] [facility] [address] [id number] [place] [address] January, [facility] [place] [facility] [address] [id number] [place] [address] January, [facility] [place] [facility] [address] [id number] [place] [address] January, [facility] [place] [facility] [address] [id number] [place] [address] January, [facility] [place] [facility] [address] [id number] [place] [address] January, [facility] [place] [facility] [address] [id number] [place] [address] January, [facility] [place] [facility] [address] [id number] [place] [address] January, [facility] [address] [facility] [id number] [facility] [place] [address] January, [facility] [place] [facility] [address] [facility] [id number] [place] [address] Dec, [facility] [place] [facility] [address] [facility] [id number] [facility] [place] [address] Dec, [facility] [place] [facility] [address] [id number] [facility] [place] [address] Dec, [facility] [place] [facility] [address] [facility] [id number] [facility] [place] [address] Dec, [facility] [place] [facility] [address] [id number] [facility] [place] [address] Dec, [facility] [place] [facility] [address] [id number] [facility] [place] [address] Nov, [facility] [place] [facility] [address] [id number] [facility] [place] [address] Oct, [facility] [place] [facility] [address] [id number] [facility] [place] [address] Oct, [facility] [place] [facility] [address] [id number] [place] [address] Oct, [facility] [place] [facility] [address] [id number] [place] [address] Oct, [facility] [place] [facility] [address] [id number] [place] [address] Oct, [facility] [place] [facility] [address] [id number] [facility] [place] [address] Sep, [facility] [place] [facility] [address] [id number] [place] [address] Sep, [facility] [place] [facility] [address] [id number] [place] [address] Sep, [facility] [place] [facility] [address] [id number] [place] [address] Aug, [facility] [place] [facility] [address] [id number] [place] [address] Aug, [facility] [place] [facility] [address] [id number] [place] [address] Aug, [facility] [place] [facility] [address] [id number] [place] [address] Aug, [facility] [place] [facility] [address] [id number] [place] [address] Jul, [facility] [place] [facility] [address] [id number] [place] [address] Jul, [facility] [place] [facility] [address] [id number] [place] [address] Jul, [facility] [place] [facility] [address] [id number] [place] [address] Jul, [facility] [place] [facility] [address] [id number] [place] [address] Jul, [facility] [place] [facility] [address] [id number] [place] [address] Jul, [facility] [place] [facility] [address] [id number] [place] [address] Jun, [facility] [place] [facility] [address] [id number] [place] [address] Jun, [facility] [place] [facility] [address] [id number] [place] [address] Jun, [facility] [place] [facility] [address] [id number] [place] [address] Jun, [facility] [place] [facility] [address] [id number] [place] [address] Jun, [facility] [place] [facility] [id number] [place] [address] Jun, [facility] [place] [facility] [address] [id number] [place] [address] Jun, [facility] [place] [facility] [address] [id number] [place] [address] Jun, [facility] [place] [facility] [address] [id number] [place] [address] Jun, [facility] [place] [facility] [address] [id number] [place] [address] Jun, [facility] [place] [facility] [address] [id number] [place] [address] May, 2011 [facility] [place] [facility] [address] [id number] [place] [address] 08 May, 2012 [facility] [place] [facility] [address] [id number] [place] [address] May, [facility] [place] [facility] [address] [id number] [place] [address] Apr, [facility] [place] [facility] [address] [id number] [place] [address] Apr, [facility] [place] [facility] [address] [id number] [place] [address] Apr, [facility] [place] [facility] [address] [id number] [place] [address] Apr, [facility] [place] [facility] [address] [id number] [place] [address] Apr, [facility] [place] [facility] [address] [id number] [place] [address] Apr, [facility] [place] [facility] [address] [id number] [place] [address] Apr, [facility] [place] [facility] [address] [id number] [place] [address] Apr, [facility] [place] [facility] [address] [id number] [place] [address] Apr, [facility] [place] [facility] [address] [id number] [place] [address] Mar, [facility] [place] [facility] [address] [id number] [place] [address] Mar, [facility] [place] [facility] [address] [id number] [place] [address] Mar, [facility] [place] [facility] [address] [id number] [place] [address] Mar, [facility] [place] [facility] [address] [id number] [place] [address] Feb, [facility] [place] [facility] [address] [id number] [place] [address] Feb, [facility] [place] [facility] [address] [id number] [place] [address] Feb, [facility] [place] [facility] [address] [id number] [place] [address] January, [facility] [place] [facility] [address] [id number] [place] [address] January, [facility] [place] [facility] [address] [id number] [place] [address] January, [facility] [place] [facility] [address] [id number] [place] [address] January, [facility] [place] [facility] [address] [id number] [place] [address] January, [facility] [place] [facility] [address] [id number] [place] [address] Dec, [facility] [place] [facility] [address] [id number] [place] [address] Dec, [facility] [place] [facility] [address] [id number] [place] [address] Dec, [facility] [place] [facility] [address] [id number] [place] [address] Oct, [facility] [place] [facility] [address] [id number] [place] [address] Oct, [facility] [place] [facility] [address] [id number] [place] [address] Oct, [facility] [place] [facility] [address] [id number] [place] [address] Sep, [facility] [place] [facility] [address] [id number] [place] [address] 18 Sep, 2011 [facility] [place] [facility] [address] [id number] [place] [address] 07 Aug, 2011 [facility] [place] [facility] [address] [id number] [place] [address] 08 Jul, 2011 [facility] [address] [id number] [place] [address] 08 Jul, 2011 [facility] [address] [id number] [place] [address] 12 Mar, 2011 [facility] [address] [id number] [place] [address] Aug, [facility] [address] [id number] [place] [address] 10 Jul, 2010 [facility] [address] [id number] [place] [address] Jul, [facility] [address] [id number] [place] [address] Jul, [facility] [address] [id number] [place] [address] Jul, [facility] [address] [id number] [place] [address] 14 Jun, 2010 [facility] [address] [id number] [place] [address] Jun, [facility] [address] [id number] [place] [address] Apr, [facility] [address] [id number] [place] [address] Aug, [facility] [address] [id number] [place] [address] 17 Jul, 2009 [facility] [address] [id number] [place] [address] 17 Jul, 2009 [facility] [address] [id number] [place] [address] Jul, [facility] [address] [id number] [place] [address] Jun, [facility] [id number] [place] [address] May, [facility] [address] [id number] [place] [address] 14 Dec, 2008 [facility] [id number] [place] [address] Nov, [facility] [address] [id number] [place] [address] Oct, [facility] [id number] [place] [address] Aug, [facility] [address] [id number] [place] [address] Aug, [facility] [address] [id number] [place] [address] Jun, IMMUNIZATIONS No Known Immunizations SOCIAL HISTORY [...] x 3 day s 04/2012 Hospitalization History [facility] [place]- Right wrist injury 03/29/2018
--- OUTSIDE RECORDS SUMMARY | 2020-04-09 00:30 | XMS REPORT ---
Author Author Kateryna UMANZOR Organization [facility] Address [address] [place] [address] Care Team Providers Care Director Of Quality Name Role Phone ZENA UMANZOR Unavailable PROBLEMS Type Condition ICD9-CM Code DTY21-KO Code Onset Dates Condition S tatus SNOMED Code Problem Irregular menses N92.6 Active 801 46591 Problem Migraine with aura and without status migrainosu s, not intractable G43.109 Active 9994584 Problem Uncontrolled type 2 diabetes mellitus with hyperglycemia E11.65 Active 778707566 Problem Morbid obesity due to excess calories E66.01 Active 418680112 Problem RLS (restless legs syndrome) G25.81 A ctive 60887455 Problem Morbid obesity E66.01 Active 94481 6002 ALLERGIES No Information ENCOUNTERS Encounter Location Date Diagnosis [place] [address] [address] 16 Sep, 2019 [place] [address] [address] 14 Sep, 2019 [place] [address] [address] 14 Sep, 2019 [place] [address] [address] 13 Sep, 2019 [place] [address] [address] 10 Sep, 2019 Pneumonia of left lower lobe due to infe ctious organism J18.9 and Migraine with aura and without status migrainosus, not intractable G43.109 [facility] [address] [address] 10 Sep, 2019 [facility] [address] [address] 10 Sep, 2019 [facility] [address] [address] 08 Sep, 2019 [facility] [address] [address] Sep, [facility] [address] [address] Sep, Pneumonia of left lower lobe due to infe ctious organism J18.9 and Migraine with aura and without status migrainosus, not intractable G43.109 [facility] [address] [address] Aug, Irregular menses N92.6 ; Well woman exam Z01.419 ; Pelvic cramping R10.2 and Left breast lump N63.20 [place] [address] [address] Aug, [place] [address] [address] Aug, Well woman exam Z01.419 ; Left breast nenita mp N63.20 ; Irregular menses N92.6 ; Encounter for immunization Z23 ; Pelvic cramping R10.2 and Screening for cervical cancer Z12.4 [place] [address] [address] Aug, [facility] [address] [address] Aug, [facility] [address] [address] Aug, [facility] [address] [address] Jul, [facility] [address] [address] Jun, [facility] [address] [address] Jun, [facility] [address] [address] Jun, [place] [address] [address] Jun, BMI 50.0-59.9, adult Z68.43 [place] [address] [address] Jun, [facility] [address] [facility] [id number] [address] [place] [address] May, Acute non-recurrent sinusiti s, unspecified location J01.90 ; Diarrhea, unspecified R19.7 ; Vomiting, unspecified R11.10 and Morbid obesity E66.01 [place] [address] [address] Apr, [place] [address] [address] Apr, Anemia due to other cause, not classifie d D64.89 and D-dimer, elevated R79.89 [place] [address] [address] Apr, [place] [address] [address] Apr, [place] [address] [address] Mar, Anemia due to other cause, not classifie d D64.89 and D-dimer, elevated R79.89 [place] [address] [address] Mar, Leg edema, right R60.0 ; High risk medic ation use Z79.899 and Morbid obesity E66.01 [place] [address] [address] Mar, BMI 50.0-59.9, adult Z68.43 [place] [address] [address] Mar, [place] [address] [address] January, Uncontrolled type 2 diabetes mellitus wi th hyperglycemia E11.65 ; RLS (restless legs syndrome) G25.81 and Morbid obesity E66.01 [place] [address] [address] 15 Oct, 2018 Lipoma of right lower extremity D17.23 [facility] [address] [address] Oct, Lipoma of right lower extremity D17.23 [facility] [address] [address] Sep, [facility] [address] [address] Sep, [facility] [address] [address] Sep, [place] [address] [address] Sep, [facility] [address] [address] Sep, [facility] [address] [address] Aug, Uncontrolled type 2 diabetes mellitus wi th hyperglycemia E11.65 ; Morbid obesity due to excess calories E66.01 ; Lipoma of torso D17.1 and BMI 50.0-59.9, adult Z68.43 [place] [address] [address] Jun, Encounter for immunization Z23 [place] [address] [address] Jul, [place] [address] [address] Jun, Encounter for immunization Z23 [facility] [address] [address] May, [place] [address] [address] Jun, Encounter for immunization Z23 [facility] [address] [id number] [place] [address] May, [facility] [address] [id number] [place] [address] May, [facility] [address] [id number] [place] [address] Apr, [facility] [address] [id number] [place] [address] Feb, [facility] [address] [id number] [place] [address] Feb, [facility] [address] [id number] [place] [address] Feb, [facility] [address] [id number] [place] [address] January, [facility] [address] [id number] [place] [address] January, [facility] [address] [id number] [place] [address] Dec, [facility] [address] [place] [id number] [place] [address] Dec, [facility] [address] [id number] [place] [address] Nov, [facility] [address] [id number] [place] [address] Nov, [facility] [address] [id number] [place] [address] Nov, [facility] [address] [id number] [place] [address] Nov, [facility] [address] [id number] [place] [address] Nov, [facility] [address] [id number] [place] [address] Nov, [facility] [address] [id number] [place] [address] Nov, [facility] [address] [facility] [id number] [place] [address] Oct, [facility] [address] [id number] [place] [address] Oct, [facility] [address] [id number] [place] [address] Oct, [facility] [address] [id number] [place] [address] Oct, [facility] [address] [id number] [place] [address] Oct, [facility] [address] [id number] [place] [address] Sep, [facility] [address] [id number] [place] [address] Sep, [facility] [address] [id number] [place] [address] Sep, [facility] [address] [id number] [place] [address] Sep, [facility] [address] [id number] [place] [address] Sep, [facility] [address] [id number] [place] [address] Sep, [facility] [address] [id number] [place] [address] Sep, [facility] [address] [id number] [place] [address] Sep, [facility] [address] [id number] [place] [address] Sep, [facility] [address] [id number] [place] [address] Sep, [facility] [address] [id number] [place] [address] Aug, [facility] [address] [id number] [place] [address] Aug, [facility] [address] [id number] [place] [address] Aug, [facility] [address] [id number] [place] [address] Aug, [facility] [address] [id number] [place] [address] Aug, [facility] [address] [id number] [place] [address] Aug, [facility] [address] [id number] [place] [address] Aug, [facility] [address] [id number] [place] [address] Aug, [facility] [address] [id number] [place] [address] Aug, [facility] [address] [id number] [place] [address] Aug, [facility] [address] [id number] [place] [address] Aug, [facility] [address] [id number] [place] [address] Aug, [facility] [address] [id number] [place] [address] Aug, [facility] [address] [id number] [place] [address] 18 Aug, 2014 [facility] [address] [id number] [place] [address] 17 Aug, 2014 [facility] [address] [id number] [place] [address] 17 Aug, 2014 [facility] [address] [id number] [place] [address] 16 Aug, 2014 [facility] [address] [id number] [place] [address] 16 Aug, 2014 [facility] [address] [facility] [id number] [place] [address] Aug, [facility] [address] [facility] [id number] [place] [address] Aug, [facility] [address] [id number] [place] [address] Aug, [facility] [address] [id number] [place] [address] Aug, [facility] [address] [id number] [place] [address] Aug, [facility] [address] [id number] [place] [address] Aug, [facility] [address] [id number] [place] [address] Jul, [facility] [address] [id number] [place] [address] Jul, [facility] [address] [id number] [place] [address] Jun, [facility] [address] [id number] [place] [address] 27 Jun, 2014 [facility] [address] [id number] [place] [address] 17 Jun, 2014 [facility] [address] [id number] [place] [address] 17 Jun, 2014 [facility] [address] [id number] [place] [address] 15 Jun, 2014 [facility] [address] [id number] [place] [address] 15 Jun, 2014 [facility] [address] [id number] [place] [address] 14 Jun, 2014 [facility] [address] [id number] [place] [address] 14 Jun, 2014 [facility] [address] [facility] [id number] [place] [address] Jun, [facility] [address] [facility] [id number] [place] [address] Jun, [facility] [address] [facility] [id number] [place] [address] Jun, [facility] [address] [id number] [place] [address] Jun, [facility] [address] [facility] [id number] [place] [address] Jun, [facility] [address] [facility] [id number] [place] [address] Jun, [facility] [address] [id number] [place] [address] May, [facility] [address] [id number] [place] [address] May, [facility] [address] [id number] [place] [address] May, [facility] [address] [facility] [id number] [place] [address] May, [facility] [address] [id number] [place] [address] May, [facility] [address] [id number] [place] [address] May, [facility] [address] [id number] [place] [address] May, 2013 [facility] [address] [facility] [id number] [place] [address] May, [facility] [address] [id number] [place] [address] Apr, [facility] [address] [id number] [place] [address] Apr, [facility] [address] [id number] [place] [address] Apr, [facility] [address] [facility] [id number] [place] [address] Apr, [facility] [address] [facility] [id number] [place] [address] Apr, [facility] [address] [id number] [place] [address] Apr, [facility] [address] [id number] [place] [address] Apr, [facility] [address] [facility] [id number] [place] [address] Apr, [facility] [address] [id number] [place] [address] Apr, [facility] [address] [id number] [place] [address] Mar, [facility] [address] [id number] [place] [address] Mar, [facility] [address] [id number] [place] [address] Mar, [facility] [address] [id number] [place] [address] Feb, [facility] [address] [id number] [place] [address] Feb, [facility] [address] [id number] [place] [address] Feb, [facility] [address] [id number] [place] [address] Feb, [facility] [address] [id number] [place] [address] Feb, [facility] [address] [id number] [place] [address] Feb, [facility] [address] [id number] [place] [address] 16 Feb, 2014 [facility] [address] [id number] [place] [address] Feb, [facility] [address] [facility] [id number] [facility] [place] [address] Feb, [facility] [address] [facility] [id number] [facility] [place] [address] Feb, [facility] [address] [id number] [facility] [place] [address] Feb, [facility] [address] [facility] [id number] [facility] [place] [address] Feb, [facility] [address] [facility] [id number] [facility] [place] [address] Feb, [facility] [address] [id number] [facility] [place] [address] Feb, [facility] [address] [id number] [place] [address] Feb, [facility] [address] [id number] [place] [address] Feb, [facility] [address] [facility] [id number] [facility] [place] [address] January, [facility] [address] [id number] [place] [address] January, [facility] [address] [id number] [place] [address] January, [facility] [address] [id number] [facility] [place] [address] January, [facility] [address] [facility] [id number] [facility] [place] [address] January, [facility] [address] [id number] [place] [address] January, [facility] [address] [facility] [id number] [place] [address] January, [facility] [address] [id number] [facility] [place] [address] January, [facility] [address] [facility] [id number] [place] [address] January, [facility] [address] [id number] [place] [address] January, [facility] [address] [facility] [id number] [place] [address] January, [facility] [address] [id number] [place] [address] January, [facility] [address] [facility] [id number] [place] [address] January, [facility] [address] [id number] [place] [address] January, [facility] [address] [id number] [place] [address] January, [facility] [address] [id number] [place] [address] January, [facility] [address] [id number] [place] [address] January, [facility] [address] [facility] [id number] [place] [address] January, [facility] [address] [id number] [place] [address] January, [facility] [address] [id number] [place] [address] January, [facility] [address] [id number] [place] [address] January, [facility] [address] [id number] [place] [address] January, [facility] [address] [id number] [place] [address] January, [facility] [place] [facility] [address] [id number] [place] [address] January, [facility] [place] [facility] [address] [id number] [place] [address] January, [facility] [place] [facility] [address] [id number] [place] [address] January, [facility] [place] [facility] [address] [id number] [place] [address] Dec, [facility] [place] [facility] [address] [id number] [place] [address] Dec, [facility] [place] [facility] [address] [id number] [place] [address] Dec, [facility] [place] [facility] [address] [facility] [id number] [place] [address] Dec, [facility] [place] [facility] [address] [id number] [place] [address] Dec, [facility] [place] [facility] [address] [id number] [place] [address] Dec, [facility] [place] [facility] [address] [id number] [place] [address] Dec, [facility] [place] [facility] [address] [id number] [place] [address] Dec, [facility] [place] [facility] [address] [id number] [place] [address] Dec, [facility] [place] [facility] [address] [id number] [place] [address] Dec, [facility] [place] [facility] [address] [id number] [place] [address] Dec, [facility] [place] [facility] [address] [id number] [place] [address] Dec, [facility] [place] [facility] [address] [id number] [place] [address] Dec, [facility] [place] [facility] [address] [id number] [place] [address] Dec, [facility] [place] [facility] [address] [id number] [place] [address] Dec, [facility] [place] [facility] [address] [id number] [place] [address] Dec, [facility] [place] [facility] [address] [facility] [id number] [place] [address] Dec, [facility] [place] [facility] [address] [facility] [id number] [place] [address] Dec, [facility] [place] [facility] [address] [id number] [place] [address] Dec, [facility] [place] [facility] [address] [facility] [id number] [place] [address] Dec, [facility] [place] [facility] [address] [facility] [id number] [place] [address] Dec, [facility] [place] [facility] [address] [facility] [id number] [place] [address] Dec, [facility] [place] [facility] [address] [id number] [facility] [place] [address] Nov, [facility] [place] [facility] [address] [id number] [facility] [place] [address] Nov, [facility] [place] [facility] [address] [facility] [id number] [facility] [place] [address] Nov, [facility] [place] [facility] [address] [id number] [facility] [place] [address] Nov, [facility] [place] [facility] [address] [id number] [place] [address] Nov, [facility] [place] [facility] [address] [id number] [facility] [place] [address] Nov, [facility] [place] [facility] [address] [facility] [id number] [facility] [place] [address] Nov, [facility] [place] [facility] [address] [id number] [place] [address] Nov, [facility] [place] [facility] [address] [facility] [id number] [facility] [place] [address] Nov, [facility] [place] [facility] [address] [id number] [facility] [place] [address] Nov, [facility] [place] [facility] [address] [id number] [place] [address] 18 Nov, 2013 [facility] [place] [facility] [address] [facility] [id number] [place] [address] Nov, [facility] [place] [facility] [address] [id number] [place] [address] Nov, [facility] [place] [facility] [address] [id number] [place] [address] Nov, [facility] [place] [facility] [address] [id number] [place] [address] Nov, [facility] [place] [facility] [address] [id number] [place] [address] Nov, [facility] [place] [facility] [address] [id number] [place] [address] Oct, [facility] [place] [facility] [address] [id number] [place] [address] Oct, [facility] [place] [facility] [address] [id number] [place] [address] Oct, [facility] [place] [facility] [address] [id number] [place] [address] Oct, [facility] [place] [facility] [address] [facility] [id number] [place] [address] 24 Oct, 2013 [facility] [place] [facility] [address] [id number] [place] [address] Oct, [facility] [place] [facility] [address] [id number] [place] [address] Oct, [facility] [place] [facility] [address] [id number] [place] [address] Oct, [facility] [place] [facility] [address] [id number] [place] [address] Oct, [facility] [place] [facility] [address] [id number] [place] [address] 17 Oct, 2013 [facility] [place] [facility] [address] [id number] [place] [address] 14 Oct, 2013 [facility] [place] [facility] [address] [facility] [id number] [place] [address] Oct, [facility] [place] [facility] [address] [facility] [id number] [place] [address] Oct, [facility] [place] [facility] [address] [id number] [place] [address] Oct, [facility] [place] [facility] [address] [facility] [id number] [place] [address] Oct, [facility] [place] [facility] [address] [facility] [id number] [place] [address] Sep, [facility] [place] [facility] [address] [id number] [place] [address] Sep, [facility] [place] [facility] [address] [id number] [place] [address] Sep, [facility] [place] [facility] [address] [id number] [place] [address] Sep, [facility] [place] [facility] [address] [id number] [place] [address] Sep, [facility] [place] [facility] [address] [id number] [place] [address] Sep, [facility] [place] [facility] [address] [id number] [place] [address] Sep, [facility] [place] [facility] [address] [id number] [place] [address] Sep, [facility] [place] [facility] [address] [facility] [id number] [place] [address] Sep, [facility] [place] [facility] [address] [id number] [place] [address] Sep, [facility] [place] [facility] [address] [id number] [place] [address] Sep, [facility] [place] [facility] [address] [id number] [place] [address] Sep, [facility] [place] [facility] [address] [id number] [place] [address] Sep, [facility] [place] [facility] [address] [id number] [place] [address] 30 Aug, 2013 [facility] [place] [facility] [address] [id number] [place] [address] 30 Aug, 2013 [facility] [place] [facility] [address] [id number] [place] [address] Aug, [facility] [place] [facility] [address] [id number] [place] [address] 24 Aug, 2013 [facility] [place] [facility] [address] [id number] [place] [address] 17 Aug, 2013 [facility] [place] [facility] [address] [id number] [place] [address] 17 Aug, 2013 [facility] [place] [facility] [address] [id number] [place] [address] 16 Aug, 2013 [facility] [place] [facility] [address] [id number] [place] [address] 16 Aug, 2013 [facility] [place] [facility] [address] [id number] [place] [address] Aug, [facility] [place] [facility] [address] [id number] [place] [address] 12 Aug, 2013 [facility] [place] [facility] [address] [id number] [place] [address] 10 Aug, 2013 [facility] [place] [facility] [address] [id number] [place] [address] 10 Aug, 2013 [facility] [place] [facility] [address] [id number] [place] [address] Aug, [facility] [place] [facility] [address] [id number] [place] [address] Aug, [facility] [place] [facility] [address] [id number] [place] [address] Jul, [facility] [place] [facility] [address] [id number] [place] [address] 19 Jul, 2013 [facility] [place] [facility] [address] [id number] [place] [address] 18 Jul, 2013 [facility] [place] [facility] [address] [id number] [place] [address] 18 Jul, 2013 [facility] [place] [facility] [address] [id number] [place] [address] 14 Jul, 2012 [facility] [place] [facility] [address] [id number] [place] [address] 14 Jul, 2013 [facility] [place] [facility] [address] [id number] [place] [address] 14 Jul, 2013 [facility] [place] [facility] [address] [id number] [place] [address] 14 Jul, 2013 [facility] [place] [facility] [address] [id number] [place] [address] 07 Jul, 2013 [facility] [place] [facility] [address] [id number] [place] [address] 07 Jul, 2013 [facility] [place] [facility] [address] [id number] [place] [address] 06 Jul, 2013 [facility] [place] [facility] [address] [id number] [place] [address] 06 Jul, 2013 [facility] [place] [facility] [address] [id number] [place] [address] 05 Jul, 2013 [facility] [place] [facility] [address] [id number] [place] [address] 05 Jul, 2013 [facility] [place] [facility] [address] [id number] [place] [address] Jun, [facility] [place] [facility] [address] [id number] [place] [address] 23 Jun, 2013 [facility] [place] [facility] [address] [id number] [place] [address] 15 Jun, 2013 [facility] [place] [facility] [address] [id number] [place] [address] 15 Jun, 2013 [facility] [place] [facility] [address] [id number] [place] [address] 14 Jun, 2012 [facility] [place] [facility] [address] [id number] [place] [address] 24 Sep, 2012 [facility] [place] [facility] [address] [id number] [place] [address] 20 May, 2012 [facility] [place] [facility] [address] [id number] [place] [address] 20 Sep, 2012 [facility] [place] [facility] [address] [id number] [place] [address] 20 Sep, 2012 [facility] [place] [facility] [address] [id number] [place] [address] 19 May, 2012 [facility] [place] [facility] [address] [id number] [place] [address] 13 May, 2012 [facility] [place] [facility] [address] [id number] [place] [address] 12 May, 2012 [facility] [place] [facility] [address] [id number] [place] [address] 12 May, 2012 [facility] [place] [facility] [address] [id number] [place] [address] 11 May, 2012 [facility] [place] [facility] [address] [id number] [place] [address] 11 May, 2012 [facility] [place] [facility] [address] [id number] [place] [address] 11 May, 2012 [facility] [place] [facility] [address] [id number] [place] [address] 09 Sep, 2012 [facility] [place] [facility] [address] [id number] [place] [address] 05 Sep, 2012 [facility] [place] [facility] [address] [id number] [place] [address] 04 Sep, 2012 [facility] [place] [facility] [address] [id number] [place] [address] 03 May, 2012 [facility] [place] [facility] [address] [id number] [place] [address] 27 Apr, 2013 [facility] [place] [facility] [address] [id number] [place] [address] Apr, [facility] [place] [facility] [address] [id number] [place] [address] Apr, [facility] [place] [facility] [address] [id number] [place] [address] Apr, [facility] [place] [facility] [address] [id number] [place] [address] Apr, [facility] [place] [facility] [address] [facility] [id number] [place] [address] Apr, [facility] [place] [facility] [address] [id number] [place] [address] Apr, [facility] [place] [facility] [address] [id number] [place] [address] Apr, [facility] [place] [facility] [address] [id number] [place] [address] Apr, [facility] [place] [facility] [address] [id number] [place] [address] Mar, [facility] [place] [facility] [address] [id number] [place] [address] Mar, [facility] [place] [facility] [address] [id number] [place] [address] Mar, [facility] [place] [facility] [address] [id number] [place] [address] Mar, [facility] [place] [facility] [address] [id number] [place] [address] Mar, [facility] [place] [facility] [address] [facility] [id number] [place] [address] Mar, [facility] [place] [facility] [address] [id number] [place] [address] Mar, [facility] [place] [facility] [address] [id number] [place] [address] Mar, [facility] [place] [facility] [address] [id number] [place] [address] Mar, [facility] [place] [facility] [address] [facility] [id number] [place] [address] Mar, [facility] [place] [facility] [address] [facility] [id number] [facility] [place] [address] Mar, [facility] [place] [facility] [address] [id number] [place] [address] Feb, [facility] [place] [facility] [address] [id number] [place] [address] Feb, [facility] [place] [facility] [address] [facility] [id number] [place] [address] Feb, [facility] [place] [facility] [address] [id number] [place] [address] Feb, [facility] [place] [facility] [address] [id number] [place] [address] Feb, [facility] [place] [facility] [address] [id number] [place] [address] Feb, [facility] [place] [facility] [address] [id number] [place] [address] Feb, [facility] [place] [facility] [address] [id number] [place] [address] Feb, [facility] [place] [facility] [address] [id number] [place] [address] Feb, [facility] [place] [facility] [address] [id number] [place] [address] January, [facility] [place] [facility] [address] [id number] [place] [address] January, [facility] [place] [facility] [address] [id number] [place] [address] January, [facility] [place] [facility] [address] [id number] [place] [address] January, [facility] [place] [facility] [address] [id number] [place] [address] January, [facility] [place] [facility] [address] [id number] [place] [address] January, [facility] [address] [id number] [place] [address] January, [facility] [place] [facility] [address] [id number] [place] [address] January, [facility] [place] [facility] [address] [id number] [place] [address] January, [facility] [place] [facility] [address] [id number] [place] [address] January, [facility] [place] [facility] [address] [id number] [place] [address] January, [facility] [place] [facility] [address] [id number] [place] [address] January, [facility] [place] [facility] [address] [id number] [place] [address] January, [facility] [place] [facility] [address] [id number] [place] [address] January, [facility] [place] [facility] [address] [id number] [place] [address] January, [facility] [place] [facility] [address] [id number] [place] [address] January, [facility] [place] [facility] [address] [id number] [place] [address] January, [facility] [place] [facility] [address] [id number] [place] [address] January, [facility] [place] [facility] [address] [id number] [place] [address] January, [facility] [place] [facility] [address] [id number] [place] [address] January, [facility] [place] [facility] [address] [id number] [place] [address] January, [facility] [place] [facility] [address] [id number] [place] [address] January, [facility] [place] [facility] [address] [id number] [place] [address] January, [facility] [address] [id number] [place] [address] Dec, [facility] [place] [facility] [address] [id number] [place] [address] Dec, [facility] [address] [id number] [place] [address] Dec, [facility] [place] [facility] [address] [id number] [place] [address] Dec, [facility] [place] [facility] [address] [id number] [place] [address] Dec, [facility] [place] [facility] [address] [id number] [place] [address] Nov, [facility] [address] [id number] [place] [address] Oct, [facility] [place] [facility] [address] [id number] [place] [address] Oct, [facility] [place] [facility] [address] [id number] [place] [address] Oct, [facility] [place] [facility] [address] [id number] [place] [address] Oct, [facility] [place] [facility] [address] [id number] [place] [address] Oct, [facility] [place] [facility] [address] [id number] [place] [address] Sep, [facility] [place] [facility] [address] [id number] [place] [address] Sep, [facility] [place] [facility] [address] [id number] [place] [address] Sep, [facility] [place] [facility] [address] [id number] [place] [address] Aug, [facility] [place] [facility] [address] [id number] [place] [address] Aug, [facility] [place] [facility] [address] [id number] [place] [address] Aug, [facility] [place] [facility] [address] [id number] [place] [address] Aug, [facility] [place] [facility] [address] [id number] [place] [address] Jul, [facility] [place] [facility] [address] [id number] [place] [address] Jul, [facility] [place] [facility] [address] [id number] [place] [address] Jul, [facility] [place] [facility] [address] [id number] [place] [address] Jul, [facility] [place] [facility] [address] [id number] [place] [address] Jul, [facility] [place] [facility] [address] [id number] [place] [address] Jul, [facility] [place] [facility] [address] [id number] [place] [address] Jun, [facility] [place] [facility] [address] [id number] [place] [address] Jun, [facility] [place] [facility] [address] [id number] [place] [address] Jun, [facility] [place] [facility] [address] [id number] [place] [address] Jun, [facility] [place] [facility] [address] [id number] [place] [address] Jun, [facility] [place] [facility] [address] [id number] [place] [address] Jun, [facility] [place] [facility] [address] [id number] [place] [address] Jun, [facility] [place] [facility] [address] [id number] [place] [address] Jun, [facility] [place] [facility] [address] [facility] [id number] [facility] [place] [address] Jun, [facility] [place] [facility] [address] [id number] [place] [address] Jun, [facility] [place] [facility] [address] [facility] [id number] [place] [address] May, [facility] [place] [facility] [address] [id number] [place] [address] 08 May, 2012 [facility] [place] [facility] [address] [id number] [place] [address] May, [facility] [place] [facility] [address] [id number] [place] [address] Apr, [facility] [place] [facility] [address] [id number] [place] [address] Apr, [facility] [place] [facility] [address] [id number] [place] [address] Apr, [facility] [place] [facility] [address] [id number] [place] [address] Apr, [facility] [place] [facility] [address] [id number] [place] [address] Apr, [facility] [place] [facility] [address] [id number] [place] [address] Apr, [facility] [place] [facility] [address] [id number] [place] [address] Apr, [facility] [place] [facility] [address] [id number] [place] [address] Apr, [facility] [place] [facility] [address] [id number] [place] [address] Apr, [facility] [place] [facility] [address] [id number] [place] [address] Mar, [facility] [place] [facility] [address] [id number] [place] [address] Mar, [facility] [place] [facility] [address] [id number] [place] [address] Mar, [facility] [place] [facility] [address] [id number] [place] [address] Mar, [facility] [place] [facility] [address] [id number] [place] [address] Feb, [facility] [place] [facility] [address] [id number] [place] [address] Feb, [facility] [place] [facility] [address] [id number] [place] [address] Feb, [facility] [place] [facility] [address] [id number] [place] [address] January, [facility] [address] [id number] [place] [address] January, [facility] [address] [id number] [place] [address] January, [facility] [address] [id number] [place] [address] January, [facility] [address] [id number] [place] [address] January, [facility] [address] [id number] [place] [address] Dec, [facility] [address] [id number] [place] [address] Dec, [facility] [address] [id number] [place] [address] Dec, [facility] [address] [id number] [place] [address] Oct, [facility] [address] [id number] [place] [address] Oct, [facility] [address] [id number] [place] [address] Oct, [facility] [address] [id number] [place] [address] Sep, [facility] [address] [id number] [place] [address] 18 Sep, 2011 [facility] [address] [id number] [place] [address] Aug, [facility] [address] [id number] [place] [address] Jul, [facility] [address] [id number] [place] [address] 08 Jul, 2011 [facility] [address] [id number] [place] [address] Mar, [facility] [address] [id number] [place] [address] Aug, [facility] [address] [id number] [place] [address] Jul, [facility] [address] [id number] [place] [address] Jul, [facility] [address] [id number] [place] [address] Jul, [facility] [address] [id number] [place] [address] Jul, [facility] [address] [id number] [place] [address] 14 Jun, 2010 [facility] [address] [id number] [place] [address] Jun, [facility] [address] [id number] [place] [address] Apr, [facility] [address] [id number] [place] [address] Aug, [facility] [address] [id number] [place] [address] 17 Jul, 2009 [facility] [address] [id number] [place] [address] Jul, [facility] [address] [id number] [place] [address] 13 Jul, 2009 [facility] [address] [id number] [place] [address] Jun, [facility] [address] [id number] [place] [address] May, [facility] [address] [id number] [place] [address] Dec, [facility] [address] [id number] [place] [address] Nov, [facility] [address] [id number] [place] [address] Oct, [facility] [address] [id number] [place] [address] Aug, [facility] [address] [id number] [place] [address] Aug, [facility] [address] [id number] [place] [address] Jun, IMMUNIZATIONS No Known Immunizations SOCIAL HISTORY Never Assessed REASON FOR VISIT PLAN OF CARE VITAL SIGNS Height 66 in 2014-01-14 Weight 340.7 lbs 2014-01-14 Temperature 96.2 degrees Fahrenheit 2014-01-14 Heart Rate 100 bpm 2014-01-14 Respiratory Rate 26 2014-01-14 Blood pressure systolic 132 mmHg 2014-01-14 Blood pressure diastolic 54 mmHg 2014-01-14 MEDICATIONS Unknown Medications RESULTS No Results PROCEDURES [...] x 3 day s 04/2012 Hospitalization History [facility] [place]- Right wrist injury 03/29/2018
--- OUTSIDE RECORDS SUMMARY | 2020-04-09 00:30 | XMS REPORT ---
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 Name Role Phone ZENA UMANZOR Unavailable PROBLEMS Type Condition ICD9-CM Code [id number] Code Onset Dates Condition S tatus SNOMED Code Problem Irregular menses N92.6 Active 801 77459 Problem Migraine with aura and without status migrainosu s, not intractable G43.109 Active 9088506 Problem Uncontrolled type 2 diabetes mellitus with hyperglycemia E11.65 Active 886923257 Problem Morbid obesity due to excess calories E66.01 Active 688440167 Problem RLS (restless legs syndrome) G25.81 A ctive 64000442 Problem Morbid obesity E66.01 Active 62326 6002 ALLERGIES No Information ENCOUNTERS Encounter Location Date Diagnosis [place] [address] [address] 16 Sep, 2019 [place] [address] [address] 14 Sep, 2019 [place] [address] [address] 14 Sep, 2019 [place] [address] [address] 13 Sep, 2019 [place] [address] [address] 10 Sep, 2019 Pneumonia of left lower lobe due to infe ctious organism J18.9 and Migraine with aura and without status migrainosus, not intractable G43.109 [facility] [address] [address] 10 Sep, 2019 [facility] [address] [address] 10 Sep, 2019 [facility] [address] [address] 08 Sep, 2019 [facility] [address] [address] Sep, [facility] [address] [address] Sep, Pneumonia of left lower lobe due to infe ctious organism J18.9 and Migraine with aura and without status migrainosus, not intractable G43.109 [facility] [address] [address] Aug, Irregular menses N92.6 ; Well woman exam Z01.419 ; Pelvic cramping R10.2 and Left breast lump N63.20 [place] [address] [address] Aug, [place] [address] [address] Aug, Well woman exam Z01.419 ; Left breast nenita mp N63.20 ; Irregular menses N92.6 ; Encounter for immunization Z23 ; Pelvic cramping R10.2 and Screening for cervical cancer Z12.4 [place] [address] [address] Aug, [facility] [address] [address] Aug, [facility] [address] [address] Aug, [facility] [address] [address] Jul, [facility] [address] [address] Jun, [facility] [address] [address] Jun, [facility] [address] [address] Jun, [place] [address] [address] Jun, BMI 50.0-59.9, adult Z68.43 [place] [address] [address] Jun, [facility] [id number] [place] [address] May, Acute non-recurrent sinusiti s, unspecified location J01.90 ; Diarrhea, unspecified R19.7 ; Vomiting, unspecified R11.10 and Morbid obesity E66.01 [place] [address] [address] Apr, [place] [address] [address] Apr, Anemia due to other cause, not classifie d D64.89 and D-dimer, elevated R79.89 [place] [address] [address] Apr, [place] [address] [address] Apr, [place] [address] [address] Mar, Anemia due to other cause, not classifie d D64.89 and D-dimer, elevated R79.89 [place] [address] [address] Mar, Leg edema, right R60.0 ; High risk medic ation use Z79.899 and Morbid obesity E66.01 [place] [address] [address] Mar, BMI 50.0-59.9, adult Z68.43 [place] [address] [address] Mar, [place] [address] [address] January, Uncontrolled type 2 diabetes mellitus wi th hyperglycemia E11.65 ; RLS (restless legs syndrome) G25.81 and Morbid obesity E66.01 [place] [address] [address] 15 Oct, 2018 Lipoma of right lower extremity D17.23 [facility] [address] [address] Oct, Lipoma of right lower extremity D17.23 [facility] [address] [address] Sep, [facility] [address] [address] Sep, [facility] [address] [address] Sep, [place] [address] [address] Sep, [facility] [address] [address] Sep, [facility] [address] [address] Aug, Uncontrolled type 2 diabetes mellitus wi th hyperglycemia E11.65 ; Morbid obesity due to excess calories E66.01 ; Lipoma of torso D17.1 and BMI 50.0-59.9, adult Z68.43 [place] [address] [address] Jun, Encounter for immunization Z23 [place] [address] [address] Jul, [place] [address] [address] Jun, Encounter for immunization Z23 [facility] [address] [address] May, [place] [address] [address] Jun, Encounter for immunization Z23 [facility] [address] [id number] [place] [address] May, [facility] [place] [facility] [address] [id number] [place] [address] May, [facility] [place] [facility] [address] [id number] [place] [address] Apr, [facility] [place] [facility] [address] [id number] [place] [address] Feb, [facility] [place] [facility] [address] [id number] [place] [address] Feb, [facility] [place] [facility] [address] [id number] [place] [address] Feb, [facility] [place] [facility] [address] [id number] [place] [address] January, [facility] [place] [facility] [address] [id number] [place] [address] January, [facility] [place] [facility] [address] [id number] [place] [address] Dec, [facility] [place] [facility] [address] [place] [id number] [place] [address] Dec, [facility] [place] [facility] [address] [id number] [place] [address] Nov, [facility] [place] [facility] [address] [id number] [place] [address] Nov, [facility] [place] [facility] [address] [id number] [place] [address] Nov, [facility] [place] [facility] [address] [id number] [place] [address] Nov, [facility] [place] [facility] [address] [id number] [place] [address] Nov, [facility] [place] [facility] [address] [id number] [place] [address] Nov, [facility] [place] [facility] [address] [id number] [place] [address] Nov, [facility] [place] [facility] [address] [id number] [place] [address] Oct, [facility] [place] [facility] [address] [id number] [place] [address] Oct, [facility] [place] [facility] [address] [id number] [place] [address] Oct, [facility] [place] [facility] [address] [id number] [place] [address] Oct, [facility] [place] [facility] [address] [id number] [place] [address] Oct, [facility] [place] [facility] [address] [id number] [place] [address] Sep, [facility] [place] [facility] [address] [id number] [place] [address] Sep, [facility] [place] [facility] [address] [id number] [place] [address] Sep, [facility] [place] [facility] [address] [id number] [place] [address] Sep, [facility] [place] [facility] [address] [id number] [place] [address] Sep, [facility] [place] [facility] [address] [id number] [place] [address] Sep, [facility] [place] [facility] [address] [id number] [place] [address] Sep, [facility] [place] [facility] [address] [id number] [place] [address] Sep, [facility] [place] [facility] [address] [id number] [place] [address] Sep, [facility] [place] [facility] [address] [id number] [place] [address] Sep, [facility] [place] [facility] [address] [id number] [place] [address] Aug, [facility] [place] [facility] [address] [id number] [place] [address] Aug, [facility] [place] [facility] [address] [id number] [place] [address] Aug, [facility] [place] [facility] [address] [id number] [place] [address] Aug, [facility] [place] [facility] [address] [id number] [place] [address] Aug, [facility] [place] [facility] [address] [id number] [place] [address] Aug, [facility] [place] [facility] [address] [id number] [place] [address] Aug, [facility] [place] [facility] [address] [id number] [place] [address] Aug, [facility] [place] [facility] [address] [id number] [place] [address] Aug, [facility] [place] [facility] [address] [id number] [place] [address] Aug, [facility] [place] [facility] [address] [id number] [place] [address] Aug, [facility] [place] [facility] [address] [id number] [place] [address] Aug, [facility] [place] [facility] [address] [id number] [place] [address] Aug, [facility] [place] [facility] [address] [id number] [place] [address] 18 Aug, 2014 [facility] [place] [facility] [address] [id number] [place] [address] 17 Aug, 2014 [facility] [place] [facility] [address] [id number] [place] [address] 17 Aug, 2014 [facility] [place] [facility] [address] [id number] [place] [address] 16 Aug, 2014 [facility] [place] [facility] [address] [id number] [place] [address] 16 Aug, 2014 [facility] [place] [facility] [address] [id number] [place] [address] Aug, [facility] [place] [facility] [address] [id number] [place] [address] Aug, [facility] [place] [facility] [address] [id number] [place] [address] Aug, [facility] [place] [facility] [address] [id number] [place] [address] Aug, [facility] [place] [facility] [address] [id number] [place] [address] Aug, [facility] [place] [facility] [address] [id number] [place] [address] Aug, [facility] [place] [facility] [address] [id number] [place] [address] Jul, [facility] [place] [facility] [address] [id number] [place] [address] Jul, [facility] [place] [facility] [address] [id number] [place] [address] Jun, [facility] [place] [facility] [address] [id number] [place] [address] 27 Jun, 2014 [facility] [place] [facility] [address] [id number] [place] [address] 17 Jun, 2014 [facility] [place] [facility] [address] [id number] [place] [address] 17 Jun, 2014 [facility] [place] [facility] [address] [id number] [place] [address] 15 Jun, 2014 [facility] [place] [facility] [address] [id number] [place] [address] 15 Jun, 2014 [facility] [place] [facility] [address] [id number] [place] [address] 14 Jun, 2014 [facility] [place] [facility] [address] [id number] [place] [address] 14 Jun, 2014 [facility] [place] [facility] [address] [id number] [place] [address] Jun, [facility] [place] [facility] [address] [id number] [place] [address] Jun, [facility] [place] [facility] [address] [id number] [place] [address] Jun, [facility] [place] [facility] [address] [id number] [place] [address] Jun, [facility] [place] [facility] [address] [id number] [place] [address] Jun, [facility] [place] [facility] [address] [id number] [place] [address] Jun, [facility] [place] [facility] [address] [id number] [place] [address] May, [facility] [place] [facility] [address] [id number] [place] [address] May, [facility] [place] [facility] [address] [id number] [place] [address] May, [facility] [place] [facility] [address] [id number] [place] [address] May, [facility] [place] [facility] [address] [id number] [place] [address] May, [facility] [place] [facility] [address] [id number] [place] [address] May, [facility] [place] [facility] [address] [id number] [place] [address] May, 2013 [facility] [place] [facility] [address] [id number] [place] [address] May, [facility] [place] [facility] [address] [id number] [place] [address] Apr, [facility] [place] [facility] [address] [id number] [place] [address] Apr, [facility] [place] [facility] [address] [id number] [place] [address] Apr, [facility] [place] [facility] [address] [id number] [place] [address] Apr, [facility] [place] [facility] [address] [id number] [place] [address] Apr, [facility] [place] [facility] [address] [id number] [place] [address] Apr, [facility] [place] [facility] [address] [id number] [place] [address] Apr, [facility] [place] [facility] [address] [id number] [place] [address] Apr, [facility] [place] [facility] [address] [id number] [place] [address] Apr, [facility] [place] [facility] [address] [id number] [place] [address] Mar, [facility] [place] [facility] [address] [id number] [place] [address] Mar, [facility] [place] [facility] [address] [id number] [place] [address] Mar, [facility] [place] [facility] [address] [id number] [place] [address] Feb, [facility] [place] [facility] [address] [id number] [place] [address] Feb, [facility] [place] [facility] [address] [id number] [place] [address] Feb, [facility] [place] [facility] [address] [id number] [place] [address] Feb, [facility] [place] [facility] [address] [id number] [place] [address] Feb, [facility] [place] [facility] [address] [id number] [place] [address] Feb, [facility] [place] [facility] [address] [id number] [place] [address] 16 Feb, 2014 [facility] [place] [facility] [address] [id number] [place] [address] Feb, [facility] [place] [facility] [address] [id number] [facility] [place] [address] Feb, [facility] [place] [facility] [address] [id number] [facility] [place] [address] Feb, [facility] [place] [facility] [address] [id number] [facility] [place] [address] Feb, [facility] [place] [facility] [address] [id number] [facility] [place] [address] Feb, [facility] [place] [facility] [address] [id number] [facility] [place] [address] Feb, [facility] [place] [facility] [address] [id number] [facility] [place] [address] Feb, [facility] [place] [facility] [address] [id number] [place] [address] Feb, [facility] [place] [facility] [address] [id number] [place] [address] Feb, [facility] [place] [facility] [address] [id number] [facility] [place] [address] January, [facility] [place] [facility] [address] [id number] [place] [address] January, [facility] [place] [facility] [address] [id number] [place] [address] January, [facility] [place] [facility] [address] [id number] [facility] [place] [address] January, [facility] [place] [facility] [address] [id number] [facility] [place] [address] January, [facility] [place] [facility] [address] [id number] [place] [address] January, [facility] [place] [facility] [address] [id number] [place] [address] January, [facility] [place] [facility] [address] [id number] [facility] [place] [address] January, [facility] [place] [facility] [address] [id number] [place] [address] January, [facility] [place] [facility] [address] [id number] [place] [address] January, [facility] [place] [facility] [address] [id number] [place] [address] January, [facility] [place] [facility] [address] [id number] [place] [address] January, [facility] [place] [facility] [address] [id number] [place] [address] January, [facility] [place] [facility] [address] [id number] [place] [address] January, [facility] [place] [facility] [address] [id number] [place] [address] January, [facility] [place] [facility] [address] [id number] [place] [address] January, [facility] [place] [facility] [address] [id number] [place] [address] January, [facility] [place] [facility] [address] [id number] [place] [address] January, [facility] [place] [facility] [address] [id number] [place] [address] January, [facility] [place] [facility] [address] [id number] [place] [address] January, [facility] [place] [facility] [address] [id number] [place] [address] January, [facility] [place] [facility] [address] [id number] [place] [address] January, [facility] [place] [facility] [address] [id number] [place] [address] January, [facility] [place] [facility] [address] [id number] [place] [address] January, [facility] [place] [facility] [address] [id number] [place] [address] January, [facility] [place] [facility] [address] [id number] [place] [address] January, [facility] [place] [facility] [address] [id number] [place] [address] Dec, [facility] [place] [facility] [address] [id number] [place] [address] Dec, [facility] [place] [facility] [address] [id number] [place] [address] Dec, [facility] [place] [facility] [address] [id number] [place] [address] Dec, [facility] [place] [facility] [address] [id number] [place] [address] Dec, [facility] [place] [facility] [address] [id number] [place] [address] Dec, [facility] [place] [facility] [address] [id number] [place] [address] Dec, [facility] [place] [facility] [address] [id number] [place] [address] Dec, [facility] [place] [facility] [address] [id number] [place] [address] Dec, [facility] [place] [facility] [address] [id number] [place] [address] Dec, [facility] [place] [facility] [address] [id number] [place] [address] Dec, [facility] [place] [facility] [address] [id number] [place] [address] Dec, [facility] [place] [facility] [address] [id number] [place] [address] Dec, [facility] [place] [facility] [address] [id number] [place] [address] Dec, [facility] [place] [facility] [address] [id number] [place] [address] Dec, [facility] [place] [facility] [address] [id number] [place] [address] Dec, [facility] [place] [facility] [address] [id number] [place] [address] Dec, [facility] [place] [facility] [address] [facility] [id number] [place] [address] Dec, [facility] [place] [facility] [address] [id number] [place] [address] Dec, [facility] [place] [facility] [address] [facility] [id number] [place] [address] Dec, [facility] [place] [facility] [address] [facility] [id number] [place] [address] Dec, [facility] [place] [facility] [address] [facility] [id number] [place] [address] Dec, [facility] [place] [facility] [address] [id number] [facility] [place] [address] Nov, [facility] [place] [facility] [address] [id number] [facility] [place] [address] Nov, [facility] [place] [facility] [address] [facility] [id number] [facility] [place] [address] Nov, [facility] [place] [facility] [address] [id number] [facility] [place] [address] Nov, [facility] [place] [facility] [address] [id number] [place] [address] Nov, [facility] [place] [facility] [address] [id number] [facility] [place] [address] Nov, [facility] [place] [facility] [address] [facility] [id number] [facility] [place] [address] Nov, [facility] [place] [facility] [address] [id number] [place] [address] Nov, [facility] [place] [facility] [address] [facility] [id number] [facility] [place] [address] Nov, [facility] [place] [facility] [address] [id number] [facility] [place] [address] Nov, [facility] [place] [facility] [address] [id number] [place] [address] 18 Nov, 2013 [facility] [place] [facility] [address] [facility] [id number] [place] [address] Nov, [facility] [place] [facility] [address] [id number] [place] [address] Nov, [facility] [place] [facility] [address] [id number] [place] [address] Nov, [facility] [place] [facility] [address] [id number] [place] [address] Nov, [facility] [place] [facility] [address] [id number] [place] [address] Nov, [facility] [place] [facility] [address] [id number] [place] [address] Oct, [facility] [place] [facility] [address] [id number] [place] [address] Oct, [facility] [place] [facility] [address] [id number] [place] [address] Oct, [facility] [place] [facility] [address] [id number] [place] [address] Oct, [facility] [place] [facility] [address] [id number] [place] [address] 24 Oct, 2013 [facility] [place] [facility] [address] [id number] [place] [address] Oct, [facility] [place] [facility] [address] [id number] [place] [address] Oct, [facility] [place] [facility] [address] [id number] [place] [address] Oct, [facility] [place] [facility] [address] [id number] [place] [address] Oct, [facility] [place] [facility] [address] [id number] [place] [address] 17 Oct, 2013 [facility] [place] [facility] [address] [id number] [place] [address] 14 Oct, 2013 [facility] [place] [facility] [address] [facility] [id number] [place] [address] Oct, [facility] [place] [facility] [address] [facility] [id number] [place] [address] Oct, [facility] [place] [facility] [address] [id number] [place] [address] Oct, [facility] [place] [facility] [address] [facility] [id number] [place] [address] Oct, [facility] [place] [facility] [address] [facility] [id number] [place] [address] Sep, [facility] [place] [facility] [address] [id number] [place] [address] Sep, [facility] [place] [facility] [address] [id number] [place] [address] Sep, [facility] [place] [facility] [address] [id number] [place] [address] Sep, [facility] [place] [facility] [address] [id number] [place] [address] Sep, [facility] [place] [facility] [address] [id number] [place] [address] Sep, [facility] [place] [facility] [address] [id number] [place] [address] Sep, [facility] [place] [facility] [address] [id number] [place] [address] Sep, [facility] [place] [facility] [address] [facility] [id number] [place] [address] Sep, [facility] [place] [facility] [address] [id number] [place] [address] Sep, [facility] [place] [facility] [address] [id number] [place] [address] Sep, [facility] [place] [facility] [address] [id number] [place] [address] Sep, [facility] [place] [facility] [address] [id number] [place] [address] Sep, [facility] [place] [facility] [address] [id number] [place] [address] 30 Aug, 2013 [facility] [place] [facility] [address] [id number] [place] [address] 30 Aug, 2013 [facility] [place] [facility] [address] [id number] [place] [address] Aug, [facility] [place] [facility] [address] [id number] [place] [address] 24 Aug, 2013 [facility] [place] [facility] [address] [id number] [place] [address] 17 Aug, 2013 [facility] [place] [facility] [address] [id number] [place] [address] 17 Aug, 2013 [facility] [place] [facility] [address] [id number] [place] [address] 16 Aug, 2013 [facility] [place] [facility] [address] [id number] [place] [address] 16 Aug, 2013 [facility] [place] [facility] [address] [id number] [place] [address] Aug, [facility] [place] [facility] [address] [id number] [place] [address] 12 Aug, 2013 [facility] [place] [facility] [address] [id number] [place] [address] 10 Aug, 2013 [facility] [place] [facility] [address] [id number] [place] [address] 10 Aug, 2013 [facility] [place] [facility] [address] [id number] [place] [address] Aug, [facility] [place] [facility] [address] [id number] [place] [address] Aug, [facility] [place] [facility] [address] [id number] [place] [address] Jul, [facility] [place] [facility] [address] [id number] [place] [address] 19 Jul, 2013 [facility] [place] [facility] [address] [id number] [place] [address] 18 Jul, 2013 [facility] [place] [facility] [address] [id number] [place] [address] 18 Jul, 2013 [facility] [place] [facility] [address] [id number] [place] [address] 14 Jul, 2012 [facility] [place] [facility] [address] [id number] [place] [address] 14 Jul, 2013 [facility] [place] [facility] [address] [id number] [place] [address] 14 Jul, 2013 [facility] [place] [facility] [address] [id number] [place] [address] 14 Jul, 2013 [facility] [place] [facility] [address] [id number] [place] [address] 07 Jul, 2013 [facility] [place] [facility] [address] [id number] [place] [address] 07 Jul, 2013 [facility] [place] [facility] [address] [id number] [place] [address] 06 Jul, 2013 [facility] [place] [facility] [address] [id number] [place] [address] 06 Jul, 2013 [facility] [place] [facility] [address] [id number] [place] [address] 05 Jul, 2013 [facility] [place] [facility] [address] [id number] [place] [address] 05 Jul, 2013 [facility] [place] [facility] [address] [id number] [place] [address] Jun, [facility] [place] [facility] [address] [id number] [place] [address] 23 Jun, 2013 [facility] [place] [facility] [address] [id number] [place] [address] 15 Jun, 2013 [facility] [place] [facility] [address] [id number] [place] [address] 15 Jun, 2013 [facility] [place] [facility] [address] [id number] [place] [address] 14 Jun, 2012 [facility] [place] [facility] [address] [id number] [place] [address] 24 Sep, 2012 [facility] [place] [facility] [address] [id number] [place] [address] 20 May, 2012 [facility] [place] [facility] [address] [id number] [place] [address] 20 Sep, 2012 [facility] [place] [facility] [address] [id number] [place] [address] 20 Sep, 2012 [facility] [place] [facility] [address] [id number] [place] [address] 19 May, 2012 [facility] [place] [facility] [address] [id number] [place] [address] 13 May, 2012 [facility] [place] [facility] [address] [id number] [place] [address] 12 May, 2012 [facility] [place] [facility] [address] [id number] [place] [address] 12 May, 2012 [facility] [place] [facility] [address] [id number] [place] [address] 11 May, 2012 [facility] [place] [facility] [address] [id number] [place] [address] 11 May, 2012 [facility] [place] [facility] [address] [id number] [place] [address] 11 May, 2012 [facility] [place] [facility] [address] [id number] [place] [address] 09 Sep, 2012 [facility] [place] [facility] [address] [id number] [place] [address] 05 Sep, 2012 [facility] [place] [facility] [address] [id number] [place] [address] 04 Sep, 2012 [facility] [place] [facility] [address] [id number] [place] [address] 03 May, 2012 [facility] [place] [facility] [address] [id number] [place] [address] 27 Apr, 2013 [facility] [place] [facility] [address] [id number] [place] [address] Apr, [facility] [place] [facility] [address] [id number] [place] [address] Apr, [facility] [place] [facility] [address] [id number] [place] [address] Apr, [facility] [place] [facility] [address] [id number] [place] [address] Apr, [facility] [place] [facility] [address] [facility] [id number] [place] [address] Apr, [facility] [place] [facility] [address] [id number] [place] [address] Apr, [facility] [place] [facility] [address] [id number] [place] [address] Apr, [facility] [place] [facility] [address] [id number] [place] [address] Apr, [facility] [place] [facility] [address] [id number] [place] [address] Mar, [facility] [place] [facility] [address] [id number] [place] [address] Mar, [facility] [place] [facility] [address] [id number] [place] [address] Mar, [facility] [place] [facility] [address] [id number] [place] [address] Mar, [facility] [place] [facility] [address] [id number] [place] [address] Mar, [facility] [place] [facility] [address] [facility] [id number] [place] [address] Mar, [facility] [place] [facility] [address] [id number] [place] [address] Mar, [facility] [place] [facility] [address] [id number] [place] [address] Mar, [facility] [place] [facility] [address] [id number] [place] [address] Mar, [facility] [place] [facility] [address] [facility] [id number] [place] [address] Mar, [facility] [place] [facility] [address] [facility] [id number] [facility] [place] [address] Mar, [facility] [place] [facility] [address] [id number] [place] [address] Feb, [facility] [place] [facility] [address] [id number] [place] [address] Feb, [facility] [place] [facility] [address] [facility] [id number] [place] [address] Feb, [facility] [place] [facility] [address] [id number] [place] [address] Feb, [facility] [place] [facility] [address] [id number] [place] [address] Feb, [facility] [place] [facility] [address] [id number] [place] [address] Feb, [facility] [place] [facility] [address] [id number] [place] [address] Feb, [facility] [place] [facility] [address] [id number] [place] [address] Feb, [facility] [place] [facility] [address] [id number] [place] [address] Feb, [facility] [place] [facility] [address] [id number] [place] [address] January, [facility] [place] [facility] [address] [id number] [place] [address] January, [facility] [place] [facility] [address] [id number] [place] [address] January, [facility] [place] [facility] [address] [id number] [place] [address] January, [facility] [place] [facility] [address] [id number] [place] [address] January, [facility] [place] [facility] [address] [id number] [place] [address] January, [facility] [address] [id number] [place] [address] January, [facility] [place] [facility] [address] [id number] [place] [address] January, [facility] [place] [facility] [address] [id number] [place] [address] January, [facility] [place] [facility] [address] [id number] [place] [address] January, [facility] [place] [facility] [address] [id number] [place] [address] January, [facility] [place] [facility] [address] [id number] [place] [address] January, [facility] [place] [facility] [address] [id number] [place] [address] January, [facility] [place] [facility] [address] [id number] [place] [address] January, [facility] [place] [facility] [address] [id number] [place] [address] January, [facility] [place] [facility] [address] [id number] [place] [address] January, [facility] [place] [facility] [address] [id number] [place] [address] January, [facility] [place] [facility] [address] [id number] [place] [address] January, [facility] [place] [facility] [address] [id number] [place] [address] January, [facility] [place] [facility] [address] [id number] [place] [address] January, [facility] [place] [facility] [address] [id number] [place] [address] January, [facility] [place] [facility] [address] [id number] [place] [address] January, [facility] [place] [facility] [address] [id number] [place] [address] January, [facility] [address] [id number] [place] [address] Dec, [facility] [place] [facility] [address] [id number] [place] [address] Dec, [facility] [address] [id number] [place] [address] Dec, [facility] [place] [facility] [address] [id number] [place] [address] Dec, [facility] [place] [facility] [address] [id number] [place] [address] Dec, [facility] [place] [facility] [address] [id number] [place] [address] Nov, [facility] [address] [id number] [place] [address] Oct, [facility] [place] [facility] [address] [id number] [place] [address] Oct, [facility] [place] [facility] [address] [id number] [place] [address] Oct, [facility] [place] [facility] [address] [id number] [place] [address] Oct, [facility] [place] [facility] [address] [id number] [place] [address] Oct, [facility] [place] [facility] [address] [id number] [place] [address] Sep, [facility] [place] [facility] [address] [id number] [place] [address] Sep, [facility] [place] [facility] [address] [id number] [place] [address] Sep, [facility] [place] [facility] [address] [id number] [place] [address] Aug, [facility] [place] [facility] [address] [id number] [place] [address] Aug, [facility] [place] [facility] [address] [id number] [place] [address] Aug, [facility] [place] [facility] [address] [id number] [place] [address] Aug, [facility] [place] [facility] [address] [id number] [place] [address] Jul, [facility] [place] [facility] [address] [id number] [place] [address] Jul, [facility] [place] [facility] [address] [id number] [place] [address] Jul, [facility] [place] [facility] [address] [id number] [place] [address] Jul, [facility] [place] [facility] [address] [id number] [place] [address] Jul, [facility] [place] [facility] [address] [id number] [place] [address] Jul, [facility] [place] [facility] [address] [id number] [place] [address] Jun, [facility] [place] [facility] [address] [id number] [place] [address] Jun, [facility] [place] [facility] [address] [id number] [place] [address] Jun, [facility] [place] [facility] [address] [id number] [place] [address] Jun, [facility] [place] [facility] [address] [id number] [place] [address] Jun, [facility] [place] [facility] [address] [id number] [place] [address] Jun, [facility] [place] [facility] [address] [id number] [place] [address] Jun, [facility] [place] [facility] [address] [id number] [place] [address] Jun, [facility] [place] [facility] [address] [facility] [id number] [facility] [place] [address] Jun, [facility] [place] [facility] [address] [id number] [place] [address] Jun, [facility] [place] [facility] [address] [facility] [id number] [place] [address] May, [facility] [place] [facility] [address] [id number] [place] [address] 08 May, 2012 [facility] [place] [facility] [address] [id number] [place] [address] May, [facility] [place] [facility] [address] [id number] [place] [address] Apr, [facility] [place] [facility] [address] [id number] [place] [address] Apr, [facility] [place] [facility] [address] [id number] [place] [address] Apr, [facility] [place] [facility] [address] [id number] [place] [address] Apr, [facility] [place] [facility] [address] [id number] [place] [address] Apr, [facility] [place] [facility] [address] [id number] [place] [address] Apr, [facility] [place] [facility] [address] [id number] [place] [address] Apr, [facility] [place] [facility] [address] [id number] [place] [address] Apr, [facility] [place] [facility] [address] [id number] [place] [address] Apr, [facility] [place] [facility] [address] [id number] [place] [address] Mar, [facility] [place] [facility] [address] [id number] [place] [address] Mar, [facility] [place] [facility] [address] [id number] [place] [address] Mar, [facility] [place] [facility] [address] [id number] [place] [address] Mar, [facility] [place] [facility] [address] [id number] [place] [address] Feb, [facility] [place] [facility] [address] [id number] [place] [address] Feb, [facility] [place] [facility] [address] [id number] [place] [address] Feb, [facility] [place] [facility] [address] [id number] [place] [address] January, [facility] [place] [facility] [address] [id number] [place] [address] January, [facility] [place] [facility] [address] [id number] [place] [address] January, [facility] [place] [facility] [address] [id number] [place] [address] January, [facility] [place] [facility] [address] [id number] [place] [address] January, [facility] [place] [facility] [address] [id number] [place] [address] Dec, [facility] [place] [facility] [address] [id number] [place] [address] Dec, [facility] [place] [facility] [address] [id number] [place] [address] Dec, [facility] [place] [facility] [address] [id number] [place] [address] Oct, [facility] [place] [facility] [address] [id number] [place] [address] Oct, [facility] [place] [facility] [address] [id number] [place] [address] Oct, [facility] [place] [facility] [address] [id number] [place] [address] Sep, [facility] [place] [facility] [address] [id number] [place] [address] 18 Sep, 2011 [facility] [place] [facility] [address] [id number] [place] [address] Aug, [facility] [place] [facility] [address] [id number] [place] [address] Jul, [facility] [place] [facility] [address] [id number] [place] [address] 08 Jul, 2011 [facility] [place] [facility] [address] [id number] [place] [address] Mar, [facility] [place] [facility] [address] [id number] [place] [address] Aug, [facility] [place] [facility] [address] [id number] [place] [address] Jul, [facility] [place] [facility] [address] [id number] [place] [address] Jul, [facility] [place] [facility] [address] [id number] [place] [address] Jul, [facility] [place] [facility] [address] [id number] [place] [address] Jul, [facility] [place] [facility] [address] [id number] [place] [address] 14 Jun, 2010 [facility] [place] [facility] [address] [id number] [place] [address] Jun, [facility] [place] [facility] [address] [id number] [place] [address] Apr, [facility] [place] [facility] [address] [id number] [place] [address] Aug, [facility] [place] [facility] [address] [id number] [place] [address] 17 Jul, 2009 [facility] [place] [facility] [address] [id number] [place] [address] Jul, [facility] [place] [facility] [address] [id number] [place] [address] 13 Jul, 2009 [facility] [place] [facility] [address] [id number] [place] [address] Jun, [facility] [id number] [place] [address] May, [facility] [address] [id number] [place] [address] Dec, [facility] [address] [id number] [place] [address] Nov, [facility] [id number] [place] [address] Oct, [facility] [id number] [place] [address] Aug, [facility] [id number] [place] [address] Aug, [facility] [address] [id number] [place] [address] Jun, IMMUNIZATIONS No Known Immunizations SOCIAL HISTORY Never Assessed REASON FOR VISIT PLAN OF CARE VITAL SIGNS MEDICATIONS Unknown Medications RESULTS No Results PROCEDURES Procedure Date Ordered Result Body Site COMPLETE CBC W/AUTO DIFF WBC January 31, 2014 VENIPUNCT, ROUTINE* January 31, 2014 INSTRUCTIONS MEDICATIONS ADMINISTERED No Known Medications MEDICAL [...] x 3 day s 04/2012 Hospitalization History [facility] [place]- Right wrist injury 03/29/2018
--- OUTSIDE RECORDS SUMMARY | 2020-04-09 00:31 | XMS REPORT ---
Author Author Kateryna UMANZOR Organization [facility] Address [address] [place] [address] Care Team Providers [employer] Worker Name Role Phone ZENA UMANZOR Unavailable PROBLEMS Type Condition ICD9-CM Code QVC37-ZC Code Onset Dates Condition S tatus SNOMED Code Problem Irregular menses N92.6 Active 801 57118 Problem Migraine with aura and without status migrainosu s, not intractable G43.109 Active 3441113 Problem Uncontrolled type 2 diabetes mellitus with hyperglycemia E11.65 Active 799562834 Problem Morbid obesity due to excess calories E66.01 Active 851610634 Problem RLS (restless legs syndrome) G25.81 A ctive 09703149 Problem Morbid obesity E66.01 Active 84116 6002 ALLERGIES No Information ENCOUNTERS Encounter Location Date Diagnosis [place] [address] [address] 16 Sep, 2019 [place] [address] [address] 14 Sep, 2019 [place] [address] [address] 14 Sep, 2019 [place] [address] [address] 13 Sep, 2019 [place] [address] [address] 10 Sep, 2019 Pneumonia of left lower lobe due to infe ctious organism J18.9 and Migraine with aura and without status migrainosus, not intractable G43.109 [facility] [address] [address] 10 Sep, 2019 [facility] [address] [address] 10 Sep, 2019 [facility] [address] [address] 08 Sep, 2019 [facility] [address] [address] Sep, [facility] [address] [address] Sep, Pneumonia of left lower lobe due to infe ctious organism J18.9 and Migraine with aura and without status migrainosus, not intractable G43.109 [facility] [address] [address] Aug, Irregular menses N92.6 ; Well woman exam Z01.419 ; Pelvic cramping R10.2 and Left breast lump N63.20 [place] [address] [address] Aug, [place] [address] [address] Aug, Well woman exam Z01.419 ; Left breast nenita mp N63.20 ; Irregular menses N92.6 ; Encounter for immunization Z23 ; Pelvic cramping R10.2 and Screening for cervical cancer Z12.4 [place] [address] [address] Aug, [facility] [address] [address] Aug, [facility] [address] [address] Aug, [facility] [address] [address] Jul, [facility] [address] [address] Jun, [facility] [address] [address] Jun, [facility] [address] [address] Jun, [place] [address] [address] Jun, BMI 50.0-59.9, adult Z68.43 [place] [address] [address] Jun, [facility] [address] [facility] [id number] [address] [place] [address] May, Acute non-recurrent sinusiti s, unspecified location J01.90 ; Diarrhea, unspecified R19.7 ; Vomiting, unspecified R11.10 and Morbid obesity E66.01 [place] [address] [address] Apr, [place] [address] [address] Apr, Anemia due to other cause, not classifie d D64.89 and D-dimer, elevated R79.89 [place] [address] [address] Apr, [place] [address] [address] Apr, [place] [address] [address] Mar, Anemia due to other cause, not classifie d D64.89 and D-dimer, elevated R79.89 [place] [address] [address] Mar, Leg edema, right R60.0 ; High risk medic ation use Z79.899 and Morbid obesity E66.01 [place] [address] [address] Mar, BMI 50.0-59.9, adult Z68.43 [place] [address] [address] Mar, [place] [address] [address] January, Uncontrolled type 2 diabetes mellitus wi th hyperglycemia E11.65 ; RLS (restless legs syndrome) G25.81 and Morbid obesity E66.01 [place] [address] [address] 15 Oct, 2018 Lipoma of right lower extremity D17.23 [facility] [address] [address] Oct, Lipoma of right lower extremity D17.23 [facility] [address] [address] Sep, [facility] [address] [address] Sep, [facility] [address] [address] Sep, [place] [address] [address] Sep, [facility] [address] [address] Sep, [facility] [address] [address] Aug, Uncontrolled type 2 diabetes mellitus wi th hyperglycemia E11.65 ; Morbid obesity due to excess calories E66.01 ; Lipoma of torso D17.1 and BMI 50.0-59.9, adult Z68.43 [place] [address] [address] Jun, Encounter for immunization Z23 [place] [address] [address] Jul, [place] [address] [address] Jun, Encounter for immunization Z23 [facility] [address] [address] May, [place] [address] [address] Jun, Encounter for immunization Z23 [facility] [address] [id number] [place] [address] May, [facility] [address] [id number] [place] [address] May, [facility] [address] [id number] [place] [address] Apr, [facility] [address] [id number] [place] [address] Feb, [facility] [address] [id number] [place] [address] Feb, [facility] [address] [id number] [place] [address] Feb, [facility] [address] [id number] [place] [address] January, [facility] [address] [id number] [place] [address] January, [facility] [address] [id number] [place] [address] Dec, [facility] [address] [place] [id number] [place] [address] Dec, [facility] [address] [id number] [place] [address] Nov, [facility] [address] [id number] [place] [address] Nov, [facility] [address] [id number] [place] [address] Nov, [facility] [address] [id number] [place] [address] Nov, [facility] [address] [id number] [place] [address] Nov, [facility] [address] [id number] [place] [address] Nov, [facility] [address] [id number] [place] [address] Nov, [facility] [address] [facility] [id number] [place] [address] Oct, [facility] [address] [id number] [place] [address] Oct, [facility] [address] [id number] [place] [address] Oct, [facility] [address] [id number] [place] [address] Oct, [facility] [address] [id number] [place] [address] Oct, [facility] [address] [id number] [place] [address] Sep, [facility] [address] [id number] [place] [address] Sep, [facility] [address] [id number] [place] [address] Sep, [facility] [address] [id number] [place] [address] Sep, [facility] [address] [id number] [place] [address] Sep, [facility] [address] [id number] [place] [address] Sep, [facility] [address] [id number] [place] [address] Sep, [facility] [address] [id number] [place] [address] Sep, [facility] [address] [id number] [place] [address] Sep, [facility] [address] [id number] [place] [address] Sep, [facility] [address] [id number] [place] [address] Aug, [facility] [address] [id number] [place] [address] Aug, [facility] [address] [id number] [place] [address] Aug, [facility] [address] [id number] [place] [address] Aug, [facility] [address] [id number] [place] [address] Aug, [facility] [address] [id number] [place] [address] Aug, [facility] [address] [id number] [place] [address] Aug, [facility] [address] [id number] [place] [address] Aug, [facility] [address] [id number] [place] [address] Aug, [facility] [address] [id number] [place] [address] Aug, [facility] [address] [id number] [place] [address] Aug, [facility] [address] [id number] [place] [address] Aug, [facility] [address] [id number] [place] [address] Aug, [facility] [address] [id number] [place] [address] 18 Aug, 2014 [facility] [address] [id number] [place] [address] 17 Aug, 2014 [facility] [address] [id number] [place] [address] 17 Aug, 2014 [facility] [address] [id number] [place] [address] 16 Aug, 2014 [facility] [address] [id number] [place] [address] 16 Aug, 2014 [facility] [address] [facility] [id number] [place] [address] Aug, [facility] [address] [facility] [id number] [place] [address] Aug, [facility] [address] [id number] [place] [address] Aug, [facility] [address] [id number] [place] [address] Aug, [facility] [address] [id number] [place] [address] Aug, [facility] [address] [id number] [place] [address] Aug, [facility] [address] [id number] [place] [address] Jul, [facility] [address] [id number] [place] [address] Jul, [facility] [address] [id number] [place] [address] Jun, [facility] [address] [id number] [place] [address] 27 Jun, 2014 [facility] [address] [id number] [place] [address] 17 Jun, 2014 [facility] [address] [id number] [place] [address] 17 Jun, 2014 [facility] [address] [id number] [place] [address] 15 Jun, 2014 [facility] [address] [id number] [place] [address] 15 Jun, 2014 [facility] [address] [id number] [place] [address] 14 Jun, 2014 [facility] [address] [id number] [place] [address] 14 Jun, 2014 [facility] [address] [facility] [id number] [place] [address] Jun, [facility] [address] [facility] [id number] [place] [address] Jun, [facility] [address] [facility] [id number] [place] [address] Jun, [facility] [address] [id number] [place] [address] Jun, [facility] [address] [facility] [id number] [place] [address] Jun, [facility] [address] [facility] [id number] [place] [address] Jun, [facility] [address] [id number] [place] [address] May, [facility] [address] [id number] [place] [address] May, [facility] [address] [id number] [place] [address] May, [facility] [address] [facility] [id number] [place] [address] May, [facility] [address] [id number] [place] [address] May, [facility] [address] [id number] [place] [address] May, [facility] [address] [id number] [place] [address] May, 2013 [facility] [address] [facility] [id number] [place] [address] May, [facility] [address] [id number] [place] [address] Apr, [facility] [address] [id number] [place] [address] Apr, [facility] [address] [id number] [place] [address] Apr, [facility] [address] [facility] [id number] [place] [address] Apr, [facility] [address] [facility] [id number] [place] [address] Apr, [facility] [address] [id number] [place] [address] Apr, [facility] [address] [id number] [place] [address] Apr, [facility] [address] [facility] [id number] [place] [address] Apr, [facility] [address] [id number] [place] [address] Apr, [facility] [address] [id number] [place] [address] Mar, [facility] [address] [id number] [place] [address] Mar, [facility] [address] [id number] [place] [address] Mar, [facility] [address] [id number] [place] [address] Feb, [facility] [address] [id number] [place] [address] Feb, [facility] [address] [id number] [place] [address] Feb, [facility] [address] [id number] [place] [address] Feb, [facility] [address] [id number] [place] [address] Feb, [facility] [address] [id number] [place] [address] Feb, [facility] [address] [id number] [place] [address] 16 Feb, 2014 [facility] [address] [id number] [place] [address] Feb, [facility] [address] [facility] [id number] [facility] [place] [address] Feb, [facility] [address] [facility] [id number] [facility] [place] [address] Feb, [facility] [address] [id number] [facility] [place] [address] Feb, [facility] [address] [facility] [id number] [facility] [place] [address] Feb, [facility] [address] [facility] [id number] [facility] [place] [address] Feb, [facility] [address] [id number] [facility] [place] [address] Feb, [facility] [address] [id number] [place] [address] Feb, [facility] [address] [id number] [place] [address] Feb, [facility] [address] [facility] [id number] [facility] [place] [address] January, [facility] [address] [id number] [place] [address] January, [facility] [address] [id number] [place] [address] January, [facility] [address] [id number] [facility] [place] [address] January, [facility] [address] [facility] [id number] [facility] [place] [address] January, [facility] [address] [id number] [place] [address] January, [facility] [address] [facility] [id number] [place] [address] January, [facility] [address] [id number] [facility] [place] [address] January, [facility] [address] [facility] [id number] [place] [address] January, [facility] [address] [id number] [place] [address] January, [facility] [address] [facility] [id number] [place] [address] January, [facility] [address] [id number] [place] [address] January, [facility] [address] [facility] [id number] [place] [address] January, [facility] [address] [id number] [place] [address] January, [facility] [address] [id number] [place] [address] January, [facility] [address] [id number] [place] [address] January, [facility] [address] [id number] [place] [address] January, [facility] [address] [facility] [id number] [place] [address] January, [facility] [address] [id number] [place] [address] January, [facility] [address] [id number] [place] [address] January, [facility] [address] [id number] [place] [address] January, [facility] [address] [id number] [place] [address] January, [facility] [address] [id number] [place] [address] January, [facility] [address] [id number] [place] [address] January, [facility] [address] [id number] [place] [address] January, [facility] [address] [id number] [place] [address] January, [facility] [address] [id number] [place] [address] Dec, [facility] [address] [id number] [place] [address] Dec, [facility] [address] [id number] [place] [address] Dec, [facility] [address] [facility] [id number] [place] [address] Dec, [facility] [address] [id number] [place] [address] Dec, [facility] [address] [id number] [place] [address] Dec, [facility] [address] [id number] [place] [address] Dec, [facility] [address] [id number] [place] [address] Dec, [facility] [address] [id number] [place] [address] Dec, [facility] [address] [id number] [place] [address] Dec, [facility] [address] [id number] [place] [address] Dec, [facility] [address] [id number] [place] [address] Dec, [facility] [place] [facility] [address] [id number] [place] [address] Dec, [facility] [place] [facility] [address] [id number] [place] [address] Dec, [facility] [place] [facility] [address] [id number] [place] [address] Dec, [facility] [place] [facility] [address] [id number] [place] [address] Dec, [facility] [place] [facility] [address] [facility] [id number] [place] [address] Dec, [facility] [place] [facility] [address] [facility] [id number] [place] [address] Dec, [facility] [place] [facility] [address] [id number] [place] [address] Dec, [facility] [place] [facility] [address] [facility] [id number] [place] [address] Dec, [facility] [place] [facility] [address] [facility] [id number] [place] [address] Dec, [facility] [place] [facility] [address] [facility] [id number] [place] [address] Dec, [facility] [place] [facility] [address] [id number] [facility] [place] [address] Nov, [facility] [place] [facility] [address] [id number] [facility] [place] [address] Nov, [facility] [place] [facility] [address] [facility] [id number] [facility] [place] [address] Nov, [facility] [place] [facility] [address] [id number] [facility] [place] [address] Nov, [facility] [place] [facility] [address] [id number] [place] [address] Nov, [facility] [place] [facility] [address] [id number] [facility] [place] [address] Nov, [facility] [place] [facility] [address] [facility] [id number] [facility] [place] [address] Nov, [facility] [place] [facility] [address] [id number] [place] [address] Nov, [facility] [place] [facility] [address] [facility] [id number] [facility] [place] [address] Nov, [facility] [place] [facility] [address] [id number] [facility] [place] [address] Nov, [facility] [place] [facility] [address] [id number] [place] [address] 18 Nov, 2013 [facility] [place] [facility] [address] [facility] [id number] [place] [address] Nov, [facility] [place] [facility] [address] [id number] [place] [address] Nov, [facility] [place] [facility] [address] [id number] [place] [address] Nov, [facility] [place] [facility] [address] [id number] [place] [address] Nov, [facility] [place] [facility] [address] [id number] [place] [address] Nov, [facility] [place] [facility] [address] [id number] [place] [address] Oct, [facility] [place] [facility] [address] [id number] [place] [address] Oct, [facility] [place] [facility] [address] [id number] [place] [address] Oct, [facility] [place] [facility] [address] [id number] [place] [address] Oct, [facility] [place] [facility] [address] [id number] [place] [address] 24 Oct, 2013 [facility] [place] [facility] [address] [id number] [place] [address] Oct, [facility] [place] [facility] [address] [id number] [place] [address] Oct, [facility] [place] [facility] [address] [id number] [place] [address] Oct, [facility] [place] [facility] [address] [id number] [place] [address] Oct, [facility] [place] [facility] [address] [id number] [place] [address] 17 Oct, 2013 [facility] [place] [facility] [address] [id number] [place] [address] 14 Oct, 2013 [facility] [place] [facility] [address] [facility] [id number] [place] [address] Oct, [facility] [place] [facility] [address] [facility] [id number] [place] [address] Oct, [facility] [place] [facility] [address] [id number] [place] [address] Oct, [facility] [place] [facility] [address] [facility] [id number] [place] [address] Oct, [facility] [place] [facility] [address] [facility] [id number] [place] [address] Sep, [facility] [place] [facility] [address] [id number] [place] [address] Sep, [facility] [place] [facility] [address] [id number] [place] [address] Sep, [facility] [place] [facility] [address] [id number] [place] [address] Sep, [facility] [place] [facility] [address] [id number] [place] [address] Sep, [facility] [place] [facility] [address] [id number] [place] [address] Sep, [facility] [place] [facility] [address] [facility] [id number] [place] [address] Sep, [facility] [place] [facility] [address] [id number] [place] [address] Sep, [facility] [place] [facility] [address] [facility] [id number] [place] [address] Sep, [facility] [place] [facility] [address] [id number] [place] [address] Sep, [facility] [place] [facility] [address] [id number] [place] [address] Sep, [facility] [place] [facility] [address] [id number] [place] [address] Sep, [facility] [place] [facility] [address] [id number] [place] [address] Sep, [facility] [place] [facility] [address] [id number] [place] [address] 30 Aug, 2013 [facility] [place] [facility] [address] [id number] [place] [address] 30 Aug, 2013 [facility] [place] [facility] [address] [id number] [place] [address] Aug, [facility] [place] [facility] [address] [id number] [place] [address] 24 Aug, 2013 [facility] [place] [facility] [address] [id number] [place] [address] 17 Aug, 2013 [facility] [place] [facility] [address] [id number] [place] [address] 17 Aug, 2013 [facility] [place] [facility] [address] [id number] [place] [address] 16 Aug, 2013 [facility] [place] [facility] [address] [id number] [place] [address] 16 Aug, 2013 [facility] [place] [facility] [address] [id number] [place] [address] Aug, [facility] [place] [facility] [address] [id number] [place] [address] 12 Aug, 2013 [facility] [place] [facility] [address] [id number] [place] [address] 10 Aug, 2013 [facility] [place] [facility] [address] [id number] [place] [address] 10 Aug, 2013 [facility] [place] [facility] [address] [id number] [place] [address] Aug, [facility] [place] [facility] [address] [id number] [place] [address] Aug, [facility] [place] [facility] [address] [id number] [place] [address] Jul, [facility] [place] [facility] [address] [id number] [place] [address] 19 Jul, 2013 [facility] [place] [facility] [address] [id number] [place] [address] 18 Jul, 2013 [facility] [place] [facility] [address] [id number] [place] [address] 18 Jul, 2013 [facility] [place] [facility] [address] [id number] [place] [address] 14 Jul, 2012 [facility] [place] [facility] [address] [id number] [place] [address] 14 Jul, 2013 [facility] [place] [facility] [address] [id number] [place] [address] 14 Jul, 2013 [facility] [place] [facility] [address] [id number] [place] [address] 14 Jul, 2013 [facility] [place] [facility] [address] [id number] [place] [address] 07 Jul, 2013 [facility] [place] [facility] [address] [id number] [place] [address] 07 Jul, 2013 [facility] [place] [facility] [address] [id number] [place] [address] 06 Jul, 2013 [facility] [place] [facility] [address] [id number] [place] [address] 06 Jul, 2013 [facility] [place] [facility] [address] [id number] [place] [address] 05 Jul, 2013 [facility] [place] [facility] [address] [id number] [place] [address] 05 Jul, 2013 [facility] [place] [facility] [address] [id number] [place] [address] Jun, [facility] [place] [facility] [address] [id number] [place] [address] 23 Jun, 2013 [facility] [place] [facility] [address] [id number] [place] [address] 15 Jun, 2013 [facility] [place] [facility] [address] [id number] [place] [address] 15 Jun, 2013 [facility] [place] [facility] [address] [id number] [place] [address] 14 Jun, 2012 [facility] [place] [facility] [address] [id number] [place] [address] 24 Sep, 2012 [facility] [place] [facility] [address] [id number] [place] [address] 20 May, 2012 [facility] [place] [facility] [address] [id number] [place] [address] 20 Sep, 2012 [facility] [place] [facility] [address] [id number] [place] [address] 20 Sep, 2012 [facility] [place] [facility] [address] [id number] [place] [address] 19 May, 2012 [facility] [place] [facility] [address] [id number] [place] [address] 13 May, 2012 [facility] [place] [facility] [address] [id number] [place] [address] 12 May, 2012 [facility] [place] [facility] [address] [id number] [place] [address] 12 May, 2012 [facility] [place] [facility] [address] [id number] [place] [address] 11 May, 2012 [facility] [place] [facility] [address] [id number] [place] [address] 11 May, 2012 [facility] [place] [facility] [address] [id number] [place] [address] 11 May, 2012 [facility] [place] [facility] [address] [id number] [place] [address] 09 Sep, 2012 [facility] [place] [facility] [address] [id number] [place] [address] 05 Sep, 2012 [facility] [place] [facility] [address] [id number] [place] [address] 04 Sep, 2012 [facility] [place] [facility] [address] [id number] [place] [address] 03 May, 2012 [facility] [place] [facility] [address] [id number] [place] [address] 27 Apr, 2013 [facility] [place] [facility] [address] [id number] [place] [address] Apr, [facility] [place] [facility] [address] [id number] [place] [address] Apr, [facility] [place] [facility] [address] [id number] [place] [address] Apr, [facility] [place] [facility] [address] [id number] [place] [address] Apr, [facility] [place] [facility] [address] [facility] [id number] [place] [address] Apr, [facility] [place] [facility] [address] [id number] [place] [address] Apr, [facility] [place] [facility] [address] [id number] [place] [address] Apr, [facility] [place] [facility] [address] [id number] [place] [address] Apr, [facility] [place] [facility] [address] [id number] [place] [address] Mar, [facility] [place] [facility] [address] [id number] [place] [address] Mar, [facility] [place] [facility] [address] [id number] [place] [address] Mar, [facility] [place] [facility] [address] [id number] [place] [address] Mar, [facility] [place] [facility] [address] [id number] [place] [address] Mar, [facility] [place] [facility] [address] [facility] [id number] [place] [address] Mar, [facility] [place] [facility] [address] [id number] [place] [address] Mar, [facility] [place] [facility] [address] [id number] [place] [address] Mar, [facility] [place] [facility] [address] [id number] [place] [address] Mar, [facility] [place] [facility] [address] [facility] [id number] [place] [address] Mar, [facility] [place] [facility] [address] [facility] [id number] [facility] [place] [address] Mar, [facility] [place] [facility] [address] [id number] [place] [address] Feb, [facility] [place] [facility] [address] [id number] [place] [address] Feb, [facility] [place] [facility] [address] [facility] [id number] [place] [address] Feb, [facility] [place] [facility] [address] [id number] [place] [address] Feb, [facility] [place] [facility] [address] [id number] [place] [address] Feb, [facility] [place] [facility] [address] [id number] [place] [address] Feb, [facility] [place] [facility] [address] [id number] [place] [address] Feb, [facility] [place] [facility] [address] [id number] [place] [address] Feb, [facility] [place] [facility] [address] [id number] [place] [address] Feb, [facility] [place] [facility] [address] [id number] [place] [address] January, [facility] [place] [facility] [address] [id number] [place] [address] January, [facility] [place] [facility] [address] [id number] [place] [address] January, [facility] [place] [facility] [address] [id number] [place] [address] January, [facility] [place] [facility] [address] [id number] [place] [address] January, [facility] [place] [facility] [address] [id number] [place] [address] January, [facility] [address] [id number] [place] [address] January, [facility] [place] [facility] [address] [id number] [place] [address] January, [facility] [place] [facility] [address] [id number] [place] [address] January, [facility] [place] [facility] [address] [id number] [place] [address] January, [facility] [place] [facility] [address] [id number] [place] [address] January, [facility] [place] [facility] [address] [id number] [place] [address] January, [facility] [place] [facility] [address] [id number] [place] [address] January, [facility] [place] [facility] [address] [id number] [place] [address] January, [facility] [place] [facility] [address] [id number] [place] [address] January, [facility] [place] [facility] [address] [id number] [place] [address] January, [facility] [place] [facility] [address] [id number] [place] [address] January, [facility] [place] [facility] [address] [id number] [place] [address] January, [facility] [place] [facility] [address] [id number] [place] [address] January, [facility] [place] [facility] [address] [id number] [place] [address] January, [facility] [place] [facility] [address] [id number] [place] [address] January, [facility] [place] [facility] [address] [id number] [place] [address] January, [facility] [place] [facility] [address] [id number] [place] [address] January, [facility] [address] [id number] [place] [address] Dec, [facility] [place] [facility] [address] [id number] [place] [address] Dec, [facility] [address] [id number] [place] [address] Dec, [facility] [place] [facility] [address] [id number] [place] [address] Dec, [facility] [place] [facility] [address] [id number] [place] [address] Dec, [facility] [place] [facility] [address] [id number] [place] [address] Nov, [facility] [address] [id number] [place] [address] Oct, [facility] [place] [facility] [address] [id number] [place] [address] Oct, [facility] [place] [facility] [address] [id number] [place] [address] Oct, [facility] [place] [facility] [address] [id number] [place] [address] Oct, [facility] [place] [facility] [address] [id number] [place] [address] Oct, [facility] [place] [facility] [address] [id number] [place] [address] Sep, [facility] [place] [facility] [address] [id number] [place] [address] Sep, [facility] [place] [facility] [address] [id number] [place] [address] Sep, [facility] [place] [facility] [address] [id number] [place] [address] Aug, [facility] [place] [facility] [address] [id number] [place] [address] Aug, [facility] [place] [facility] [address] [id number] [place] [address] Aug, [facility] [place] [facility] [address] [id number] [place] [address] Aug, [facility] [place] [facility] [address] [id number] [place] [address] Jul, [facility] [place] [facility] [address] [id number] [place] [address] Jul, [facility] [place] [facility] [address] [id number] [place] [address] Jul, [facility] [place] [facility] [address] [id number] [place] [address] Jul, [facility] [place] [facility] [address] [id number] [place] [address] Jul, [facility] [place] [facility] [address] [id number] [place] [address] Jul, [facility] [place] [facility] [address] [id number] [place] [address] Jun, [facility] [place] [facility] [address] [id number] [place] [address] Jun, [facility] [place] [facility] [address] [id number] [place] [address] Jun, [facility] [place] [facility] [address] [id number] [place] [address] Jun, [facility] [place] [facility] [address] [id number] [place] [address] Jun, [facility] [place] [facility] [address] [id number] [place] [address] Jun, [facility] [place] [facility] [address] [id number] [place] [address] Jun, [facility] [place] [facility] [address] [id number] [place] [address] Jun, [facility] [place] [facility] [address] [facility] [id number] [facility] [place] [address] Jun, [facility] [place] [facility] [address] [id number] [place] [address] Jun, [facility] [place] [facility] [address] [facility] [id number] [place] [address] May, [facility] [place] [facility] [address] [id number] [place] [address] 08 May, 2012 [facility] [place] [facility] [address] [id number] [place] [address] May, [facility] [place] [facility] [address] [id number] [place] [address] Apr, [facility] [place] [facility] [address] [id number] [place] [address] Apr, [facility] [place] [facility] [address] [id number] [place] [address] Apr, [facility] [place] [facility] [address] [id number] [place] [address] Apr, [facility] [place] [facility] [address] [id number] [place] [address] Apr, [facility] [place] [facility] [address] [id number] [place] [address] Apr, [facility] [place] [facility] [address] [id number] [place] [address] Apr, [facility] [place] [facility] [address] [id number] [place] [address] Apr, [facility] [place] [facility] [address] [id number] [place] [address] Apr, [facility] [place] [facility] [address] [id number] [place] [address] Mar, [facility] [place] [facility] [address] [id number] [place] [address] Mar, [facility] [place] [facility] [address] [id number] [place] [address] Mar, [facility] [place] [facility] [address] [id number] [place] [address] Mar, [facility] [place] [facility] [address] [id number] [place] [address] Feb, [facility] [place] [facility] [address] [id number] [place] [address] Feb, [facility] [place] [facility] [address] [id number] [place] [address] Feb, [facility] [place] [facility] [address] [id number] [place] [address] January, [facility] [place] [facility] [address] [id number] [place] [address] January, [facility] [place] [facility] [address] [id number] [place] [address] January, [facility] [place] [facility] [address] [id number] [place] [address] January, [facility] [place] [facility] [address] [id number] [place] [address] January, [facility] [place] [facility] [address] [id number] [place] [address] Dec, [facility] [place] [facility] [address] [id number] [place] [address] Dec, [facility] [place] [facility] [address] [id number] [place] [address] Dec, [facility] [place] [facility] [address] [id number] [place] [address] Oct, [facility] [place] [facility] [address] [id number] [place] [address] Oct, [facility] [place] [facility] [address] [id number] [place] [address] Oct, [facility] [place] [facility] [address] [id number] [place] [address] Sep, [facility] [place] [facility] [address] [id number] [place] [address] 18 Sep, 2011 [facility] [place] [facility] [address] [id number] [place] [address] Aug, [facility] [place] [facility] [address] [id number] [place] [address] Jul, [facility] [place] [facility] [address] [id number] [place] [address] 08 Jul, 2011 [facility] [place] [facility] [address] [id number] [place] [address] Mar, [facility] [place] [facility] [address] [id number] [place] [address] Aug, [facility] [place] [facility] [address] [id number] [place] [address] Jul, [facility] [place] [facility] [address] [id number] [place] [address] Jul, [facility] [place] [facility] [address] [id number] [place] [address] Jul, [facility] [place] [facility] [address] [id number] [place] [address] Jul, [facility] [place] [facility] [address] [id number] [place] [address] 14 Jun, 2010 [facility] [place] [facility] [address] [id number] [place] [address] Jun, [facility] [place] [facility] [address] [id number] [place] [address] Apr, [facility] [place] [facility] [address] [id number] [place] [address] Aug, [facility] [place] [facility] [address] [id number] [place] [address] 17 Jul, 2009 [facility] [place] [facility] [address] [id number] [place] [address] Jul, [facility] [place] [facility] [address] [id number] [place] [address] 13 Jul, 2009 [facility] [place] [facility] [address] [id number] [place] [address] Jun, [facility] [address] [id number] [place] [address] May, [facility] [address] [id number] [place] [address] 14 Dec, 2008 [facility] [address] [id number] [place] [address] Nov, [facility] [id number] [place] [address] Oct, [facility] [id number] [place] [address] Aug, [facility] [id number] [place] [address] Aug, [facility] [address] [id number] [place] [address] Jun, IMMUNIZATIONS No Known Immunizations SOCIAL HISTORY Never Assessed REASON FOR VISIT PLAN OF CARE VITAL SIGNS MEDICATIONS Unknown Medications RESULTS No Results PROCEDURES Procedure Date Ordered Result Body Site COMPLETE CBC W/AUTO DIFF WBC January 17, 2014 ASSAY THYROID STIM HORMONE January 17, 2014 LIPID PANEL January 17, 2014 COMPREHEN METABOLIC PANEL January 17, 2014 VENIPUNCT, ROUTINE* January 17, 2014 INSTRUCTIONS MEDICATIONS ADMINISTERED No Known Medications [...] [facility] [place]- Right wrist injury 03/29/2018
--- OUTSIDE RECORDS SUMMARY | 2020-04-09 00:31 | XMS REPORT ---
Author Author Kateryna UMANZOR Organization [facility] Address [address] [place] [address] Care Team Providers Care Curer Foam Rubber Name Role Phone ZENA UMANZOR Unavailable PROBLEMS Type Condition ICD9-CM Code QGY79-SV Code Onset Dates Condition S tatus SNOMED Code Problem Irregular menses N92.6 Active 801 87226 Problem Migraine with aura and without status migrainosu s, not intractable G43.109 Active 8718505 Problem Uncontrolled type 2 diabetes mellitus with hyperglycemia E11.65 Active 521786919 Problem Morbid obesity due to excess calories E66.01 Active 592916327 Problem RLS (restless legs syndrome) G25.81 A ctive 18507629 Problem Morbid obesity E66.01 Active 27130 6002 ALLERGIES No Information ENCOUNTERS Encounter Location Date Diagnosis [place] [address] [address] 16 Sep, 2019 [place] [address] [address] 14 Sep, 2019 [place] [address] [address] 14 Sep, 2019 [place] [address] [address] 13 Sep, 2019 [place] [address] [address] 10 Sep, 2019 Pneumonia of left lower lobe due to infe ctious organism J18.9 and Migraine with aura and without status migrainosus, not intractable G43.109 [facility] [address] [address] 10 Sep, 2019 [facility] [address] [address] 10 Sep, 2019 [facility] [address] [address] 08 Sep, 2019 [facility] [address] [address] Sep, [facility] [address] [address] Sep, Pneumonia of left lower lobe due to infe ctious organism J18.9 and Migraine with aura and without status migrainosus, not intractable G43.109 [facility] [address] [address] Aug, Irregular menses N92.6 ; Well woman exam Z01.419 ; Pelvic cramping R10.2 and Left breast lump N63.20 [place] [address] [address] Aug, [place] [address] [address] Aug, Well woman exam Z01.419 ; Left breast nenita mp N63.20 ; Irregular menses N92.6 ; Encounter for immunization Z23 ; Pelvic cramping R10.2 and Screening for cervical cancer Z12.4 [place] [address] [address] Aug, [facility] [address] [address] Aug, [facility] [address] [address] Aug, [facility] [address] [address] Jul, [facility] [address] [address] Jun, [facility] [address] [address] Jun, [facility] [address] [address] Jun, [place] [address] [address] Jun, BMI 50.0-59.9, adult Z68.43 [place] [address] [address] Jun, [facility] [address] [facility] [id number] [address] [place] [address] May, Acute non-recurrent sinusiti s, unspecified location J01.90 ; Diarrhea, unspecified R19.7 ; Vomiting, unspecified R11.10 and Morbid obesity E66.01 [place] [address] [address] Apr, [place] [address] [address] Apr, Anemia due to other cause, not classifie d D64.89 and D-dimer, elevated R79.89 [place] [address] [address] Apr, [place] [address] [address] Apr, [place] [address] [address] Mar, Anemia due to other cause, not classifie d D64.89 and D-dimer, elevated R79.89 [place] [address] [address] Mar, Leg edema, right R60.0 ; High risk medic ation use Z79.899 and Morbid obesity E66.01 [place] [address] [address] Mar, BMI 50.0-59.9, adult Z68.43 [place] [address] [address] Mar, [place] [address] [address] January, Uncontrolled type 2 diabetes mellitus wi th hyperglycemia E11.65 ; RLS (restless legs syndrome) G25.81 and Morbid obesity E66.01 [place] [address] [address] 15 Oct, 2018 Lipoma of right lower extremity D17.23 [facility] [address] [address] Oct, Lipoma of right lower extremity D17.23 [facility] [address] [address] Sep, [facility] [address] [address] Sep, [facility] [address] [address] Sep, [place] [address] [address] Sep, [facility] [address] [address] Sep, [facility] [address] [address] Aug, Uncontrolled type 2 diabetes mellitus wi th hyperglycemia E11.65 ; Morbid obesity due to excess calories E66.01 ; Lipoma of torso D17.1 and BMI 50.0-59.9, adult Z68.43 [place] [address] [address] Jun, Encounter for immunization Z23 [place] [address] [address] Jul, [place] [address] [address] Jun, Encounter for immunization Z23 [facility] [address] [address] May, [place] [address] [address] Jun, Encounter for immunization Z23 [facility] [id number] [place] [address] May, [facility] [place] [facility] [id number] [place] [address] May, [facility] [place] [facility] [id number] [place] [address] Apr, [facility] [place] [facility] [id number] [place] [address] Feb, [facility] [place] [facility] [id number] [place] [address] Feb, [facility] [place] [facility] [id number] [place] [address] Feb, [facility] [place] [facility] [id number] [place] [address] January, [facility] [place] [facility] [id number] [place] [address] January, [facility] [place] [facility] [id number] [place] [address] Dec, [facility] [place] [facility] [address] [place] [id number] [place] [address] Dec, [facility] [place] [facility] [id number] [place] [address] Nov, [facility] [place] [facility] [id number] [place] [address] Nov, [facility] [place] [facility] [id number] [place] [address] Nov, [facility] [place] [facility] [id number] [place] [address] Nov, [facility] [place] [facility] [id number] [place] [address] Nov, [facility] [place] [facility] [id number] [place] [address] Nov, [facility] [place] [facility] [id number] [place] [address] Nov, [facility] [place] [facility] [address] [facility] [id number] [place] [address] Oct, [facility] [place] [facility] [id number] [place] [address] Oct, [facility] [place] [facility] [id number] [place] [address] Oct, [facility] [place] [facility] [id number] [place] [address] Oct, [facility] [place] [facility] [id number] [place] [address] Oct, [facility] [place] [facility] [id number] [place] [address] Sep, [facility] [place] [facility] [id number] [place] [address] Sep, [facility] [place] [facility] [id number] [place] [address] Sep, [facility] [place] [facility] [id number] [place] [address] Sep, [facility] [place] [facility] [id number] [place] [address] Sep, [facility] [place] [facility] [id number] [place] [address] Sep, [facility] [place] [facility] [id number] [place] [address] Sep, [facility] [place] [facility] [id number] [place] [address] Sep, [facility] [place] [facility] [id number] [place] [address] Sep, [facility] [place] [facility] [id number] [place] [address] Sep, [facility] [place] [facility] [id number] [place] [address] Aug, [facility] [place] [facility] [id number] [place] [address] Aug, [facility] [place] [facility] [id number] [place] [address] Aug, [facility] [place] [facility] [id number] [place] [address] Aug, [facility] [place] [facility] [id number] [place] [address] Aug, [facility] [place] [facility] [id number] [place] [address] Aug, [facility] [place] [facility] [id number] [place] [address] Aug, [facility] [place] [facility] [id number] [place] [address] Aug, [facility] [place] [facility] [id number] [place] [address] Aug, [facility] [place] [facility] [id number] [place] [address] Aug, [facility] [place] [facility] [id number] [place] [address] Aug, [facility] [place] [facility] [id number] [place] [address] Aug, [facility] [place] [facility] [id number] [place] [address] Aug, [facility] [place] [facility] [id number] [place] [address] 18 Aug, 2014 [facility] [place] [facility] [id number] [place] [address] 17 Aug, 2014 [facility] [place] [facility] [id number] [place] [address] 17 Aug, 2014 [facility] [place] [facility] [id number] [place] [address] 16 Aug, 2014 [facility] [place] [facility] [id number] [place] [address] 16 Aug, 2014 [facility] [place] [facility] [address] [facility] [id number] [place] [address] Aug, [facility] [place] [facility] [address] [facility] [id number] [place] [address] Aug, [facility] [place] [facility] [id number] [place] [address] Aug, [facility] [place] [facility] [id number] [place] [address] Aug, [facility] [place] [facility] [id number] [place] [address] Aug, [facility] [place] [facility] [id number] [place] [address] Aug, [facility] [place] [facility] [id number] [place] [address] Jul, [facility] [place] [facility] [id number] [place] [address] Jul, [facility] [place] [facility] [id number] [place] [address] Jun, [facility] [place] [facility] [id number] [place] [address] 27 Jun, 2014 [facility] [place] [facility] [id number] [place] [address] 17 Jun, 2014 [facility] [place] [facility] [id number] [place] [address] 17 Jun, 2014 [facility] [place] [facility] [id number] [place] [address] 15 Jun, 2014 [facility] [place] [facility] [id number] [place] [address] 15 Jun, 2014 [facility] [place] [facility] [id number] [place] [address] 14 Jun, 2014 [facility] [place] [facility] [id number] [place] [address] 14 Jun, 2014 [facility] [place] [facility] [address] [facility] [id number] [place] [address] Jun, [facility] [place] [facility] [address] [facility] [id number] [place] [address] Jun, [facility] [place] [facility] [address] [facility] [id number] [place] [address] Jun, [facility] [place] [facility] [id number] [place] [address] Jun, [facility] [place] [facility] [address] [facility] [id number] [place] [address] Jun, [facility] [place] [facility] [address] [facility] [id number] [place] [address] Jun, [facility] [place] [facility] [id number] [place] [address] May, [facility] [place] [facility] [id number] [place] [address] May, [facility] [place] [facility] [id number] [place] [address] May, [facility] [place] [facility] [address] [facility] [id number] [place] [address] May, [facility] [place] [facility] [id number] [place] [address] May, [facility] [place] [facility] [id number] [place] [address] May, [facility] [place] [facility] [id number] [place] [address] May, 2013 [facility] [place] [facility] [address] [facility] [id number] [place] [address] May, [facility] [place] [facility] [id number] [place] [address] Apr, [facility] [place] [facility] [id number] [place] [address] Apr, [facility] [place] [facility] [id number] [place] [address] Apr, [facility] [place] [facility] [address] [facility] [id number] [place] [address] Apr, [facility] [place] [facility] [address] [facility] [id number] [place] [address] Apr, [facility] [place] [facility] [id number] [place] [address] Apr, [facility] [place] [facility] [id number] [place] [address] Apr, [facility] [place] [facility] [address] [facility] [id number] [place] [address] Apr, [facility] [place] [facility] [id number] [place] [address] Apr, [facility] [place] [facility] [id number] [place] [address] Mar, [facility] [place] [facility] [id number] [place] [address] Mar, [facility] [place] [facility] [id number] [place] [address] Mar, [facility] [place] [facility] [id number] [place] [address] Feb, [facility] [place] [facility] [id number] [place] [address] Feb, [facility] [place] [facility] [id number] [place] [address] Feb, [facility] [place] [facility] [id number] [place] [address] Feb, [facility] [place] [facility] [id number] [place] [address] Feb, [facility] [place] [facility] [id number] [place] [address] Feb, [facility] [place] [facility] [id number] [place] [address] 16 Feb, 2014 [facility] [place] [facility] [id number] [place] [address] Feb, [facility] [place] [facility] [address] [facility] [id number] [facility] [place] [address] Feb, [facility] [place] [facility] [address] [facility] [id number] [facility] [place] [address] Feb, [facility] [place] [facility] [id number] [facility] [place] [address] Feb, [facility] [place] [facility] [address] [facility] [id number] [facility] [place] [address] Feb, [facility] [place] [facility] [address] [facility] [id number] [facility] [place] [address] Feb, [facility] [place] [facility] [id number] [facility] [place] [address] Feb, [facility] [place] [facility] [id number] [place] [address] Feb, [facility] [place] [facility] [id number] [place] [address] Feb, [facility] [place] [facility] [address] [facility] [id number] [facility] [place] [address] January, [facility] [place] [facility] [id number] [place] [address] January, [facility] [place] [facility] [id number] [place] [address] January, [facility] [place] [facility] [id number] [facility] [place] [address] January, [facility] [place] [facility] [address] [facility] [id number] [facility] [place] [address] January, [facility] [place] [facility] [id number] [place] [address] January, [facility] [place] [facility] [address] [facility] [id number] [place] [address] January, [facility] [place] [facility] [id number] [facility] [place] [address] January, [facility] [place] [facility] [address] [facility] [id number] [place] [address] January, [facility] [place] [facility] [address] [id number] [place] [address] January, [facility] [place] [facility] [address] [facility] [id number] [place] [address] January, [facility] [place] [facility] [id number] [place] [address] January, [facility] [place] [facility] [address] [facility] [id number] [place] [address] January, [facility] [place] [facility] [address] [id number] [place] [address] January, [facility] [place] [facility] [id number] [place] [address] January, [facility] [place] [facility] [id number] [place] [address] January, [facility] [place] [facility] [id number] [place] [address] January, [facility] [place] [facility] [address] [facility] [id number] [place] [address] January, [facility] [place] [facility] [id number] [place] [address] January, [facility] [place] [facility] [id number] [place] [address] January, [facility] [place] [facility] [address] [id number] [place] [address] January, [facility] [place] [facility] [address] [id number] [place] [address] January, [facility] [place] [facility] [address] [id number] [place] [address] January, [facility] [place] [facility] [id number] [place] [address] January, [facility] [place] [facility] [id number] [place] [address] January, [facility] [place] [facility] [id number] [place] [address] January, [facility] [place] [facility] [id number] [place] [address] Dec, [facility] [place] [facility] [id number] [place] [address] Dec, [facility] [place] [facility] [address] [id number] [place] [address] Dec, [facility] [place] [facility] [address] [facility] [id number] [place] [address] Dec, [facility] [place] [facility] [id number] [place] [address] Dec, [facility] [place] [facility] [id number] [place] [address] Dec, [facility] [place] [facility] [id number] [place] [address] Dec, [facility] [place] [facility] [id number] [place] [address] Dec, [facility] [place] [facility] [id number] [place] [address] Dec, [facility] [place] [facility] [id number] [place] [address] Dec, [facility] [place] [facility] [id number] [place] [address] Dec, [facility] [place] [facility] [id number] [place] [address] Dec, [facility] [place] [facility] [id number] [place] [address] Dec, [facility] [place] [facility] [id number] [place] [address] Dec, [facility] [place] [facility] [id number] [place] [address] Dec, [facility] [place] [facility] [id number] [place] [address] Dec, [facility] [place] [facility] [address] [facility] [id number] [place] [address] Dec, [facility] [place] [facility] [address] [facility] [id number] [place] [address] Dec, [facility] [place] [facility] [id number] [place] [address] Dec, [facility] [place] [facility] [address] [facility] [id number] [place] [address] Dec, [facility] [place] [facility] [address] [facility] [id number] [place] [address] Dec, [facility] [place] [facility] [address] [facility] [id number] [place] [address] Dec, [facility] [place] [facility] [id number] [facility] [place] [address] Nov, [facility] [place] [facility] [id number] [facility] [place] [address] Nov, [facility] [place] [facility] [address] [facility] [id number] [facility] [place] [address] Nov, [facility] [place] [facility] [id number] [facility] [place] [address] Nov, [facility] [place] [facility] [id number] [place] [address] Nov, [facility] [place] [facility] [id number] [facility] [place] [address] Nov, [facility] [place] [facility] [address] [facility] [id number] [facility] [place] [address] Nov, [facility] [place] [facility] [id number] [place] [address] Nov, [facility] [place] [facility] [address] [facility] [id number] [facility] [place] [address] Nov, [facility] [place] [facility] [id number] [facility] [place] [address] Nov, [facility] [place] [facility] [id number] [place] [address] 18 Nov, 2013 [facility] [place] [facility] [address] [facility] [id number] [place] [address] Nov, [facility] [place] [facility] [id number] [place] [address] Nov, [facility] [place] [facility] [id number] [place] [address] Nov, [facility] [place] [facility] [id number] [place] [address] Nov, [facility] [place] [facility] [id number] [place] [address] Nov, [facility] [place] [facility] [id number] [place] [address] Oct, [facility] [place] [facility] [id number] [place] [address] Oct, [facility] [place] [facility] [id number] [place] [address] Oct, [facility] [place] [facility] [id number] [place] [address] Oct, [facility] [place] [facility] [id number] [place] [address] 24 Oct, 2013 [facility] [place] [facility] [id number] [place] [address] Oct, [facility] [place] [facility] [id number] [place] [address] Oct, [facility] [place] [facility] [id number] [place] [address] Oct, [facility] [place] [facility] [id number] [place] [address] Oct, [facility] [place] [facility] [id number] [place] [address] 17 Oct, 2013 [facility] [place] [facility] [id number] [place] [address] 14 Oct, 2013 [facility] [place] [facility] [address] [facility] [id number] [place] [address] Oct, [facility] [place] [facility] [address] [facility] [id number] [place] [address] Oct, [facility] [place] [facility] [id number] [place] [address] Oct, [facility] [place] [facility] [address] [facility] [id number] [place] [address] Oct, [facility] [place] [facility] [address] [facility] [id number] [place] [address] Sep, [facility] [place] [facility] [id number] [place] [address] Sep, [facility] [place] [facility] [id number] [place] [address] Sep, [facility] [place] [facility] [id number] [place] [address] Sep, [facility] [place] [facility] [id number] [place] [address] Sep, [facility] [place] [facility] [id number] [place] [address] Sep, [facility] [place] [facility] [id number] [place] [address] Sep, [facility] [place] [facility] [id number] [place] [address] Sep, [facility] [place] [facility] [address] [facility] [id number] [place] [address] Sep, [facility] [place] [facility] [id number] [place] [address] Sep, [facility] [place] [facility] [id number] [place] [address] Sep, [facility] [place] [facility] [id number] [place] [address] Sep, [facility] [place] [facility] [id number] [place] [address] Sep, [facility] [place] [facility] [id number] [place] [address] 30 Aug, 2013 [facility] [place] [facility] [id number] [place] [address] 30 Aug, 2013 [facility] [place] [facility] [id number] [place] [address] Aug, [facility] [place] [facility] [id number] [place] [address] 24 Aug, 2013 [facility] [place] [facility] [id number] [place] [address] 17 Aug, 2013 [facility] [place] [facility] [id number] [place] [address] 17 Aug, 2013 [facility] [place] [facility] [id number] [place] [address] 16 Aug, 2013 [facility] [place] [facility] [id number] [place] [address] 16 Aug, 2013 [facility] [place] [facility] [id number] [place] [address] Aug, [facility] [place] [facility] [id number] [place] [address] 12 Aug, 2013 [facility] [place] [facility] [id number] [place] [address] 10 Aug, 2013 [facility] [place] [facility] [id number] [place] [address] 10 Aug, 2013 [facility] [place] [facility] [id number] [place] [address] Aug, [facility] [place] [facility] [id number] [place] [address] Aug, [facility] [place] [facility] [id number] [place] [address] Jul, [facility] [place] [facility] [id number] [place] [address] 19 Jul, 2013 [facility] [place] [facility] [id number] [place] [address] 18 Jul, 2013 [facility] [place] [facility] [id number] [place] [address] 18 Jul, 2013 [facility] [place] [facility] [id number] [place] [address] 14 Jul, 2012 [facility] [place] [facility] [id number] [place] [address] 14 Jul, 2013 [facility] [place] [facility] [id number] [place] [address] 14 Jul, 2013 [facility] [place] [facility] [id number] [place] [address] 14 Jul, 2013 [facility] [place] [facility] [id number] [place] [address] 07 Jul, 2013 [facility] [place] [facility] [id number] [place] [address] 07 Jul, 2013 [facility] [place] [facility] [id number] [place] [address] 06 Jul, 2013 [facility] [place] [facility] [id number] [place] [address] 06 Jul, 2013 [facility] [place] [facility] [id number] [place] [address] 05 Jul, 2013 [facility] [place] [facility] [id number] [place] [address] 05 Jul, 2013 [facility] [place] [facility] [id number] [place] [address] Jun, [facility] [place] [facility] [id number] [place] [address] 23 Jun, 2013 [facility] [place] [facility] [id number] [place] [address] 15 Jun, 2013 [facility] [place] [facility] [id number] [place] [address] 15 Jun, 2013 [facility] [place] [facility] [id number] [place] [address] 14 Jun, 2012 [facility] [place] [facility] [address] [id number] [place] [address] 24 Sep, 2012 [facility] [place] [facility] [id number] [place] [address] 20 May, 2012 [facility] [place] [facility] [address] [id number] [place] [address] 20 Sep, 2012 [facility] [place] [facility] [address] [id number] [place] [address] 20 Sep, 2012 [facility] [place] [facility] [address] [id number] [place] [address] 19 May, 2012 [facility] [place] [facility] [id number] [place] [address] 13 May, 2012 [facility] [place] [facility] [id number] [place] [address] 12 May, 2012 [facility] [place] [facility] [id number] [place] [address] 12 May, 2012 [facility] [place] [facility] [address] [id number] [place] [address] 11 May, 2012 [facility] [place] [facility] [id number] [place] [address] 11 May, 2012 [facility] [place] [facility] [id number] [place] [address] 11 May, 2012 [facility] [place] [facility] [address] [id number] [place] [address] 09 Sep, 2012 [facility] [place] [facility] [address] [id number] [place] [address] 05 Sep, 2012 [facility] [place] [facility] [address] [id number] [place] [address] 04 Sep, 2012 [facility] [place] [facility] [id number] [place] [address] 03 May, 2012 [facility] [place] [facility] [id number] [place] [address] 27 Apr, 2013 [facility] [place] [facility] [address] [id number] [place] [address] Apr, [facility] [place] [facility] [id number] [place] [address] Apr, [facility] [place] [facility] [id number] [place] [address] Apr, [facility] [place] [facility] [id number] [place] [address] Apr, [facility] [place] [facility] [address] [facility] [id number] [place] [address] Apr, [facility] [place] [facility] [address] [id number] [place] [address] Apr, [facility] [place] [facility] [id number] [place] [address] Apr, [facility] [place] [facility] [id number] [place] [address] Apr, [facility] [place] [facility] [id number] [place] [address] Mar, [facility] [place] [facility] [id number] [place] [address] Mar, [facility] [place] [facility] [id number] [place] [address] Mar, [facility] [place] [facility] [id number] [place] [address] Mar, [facility] [place] [facility] [id number] [place] [address] Mar, [facility] [place] [facility] [address] [facility] [id number] [place] [address] Mar, [facility] [place] [facility] [id number] [place] [address] Mar, [facility] [place] [facility] [id number] [place] [address] Mar, [facility] [place] [facility] [id number] [place] [address] Mar, [facility] [place] [facility] [address] [facility] [id number] [place] [address] Mar, [facility] [place] [facility] [address] [facility] [id number] [facility] [place] [address] Mar, [facility] [place] [facility] [id number] [place] [address] Feb, [facility] [place] [facility] [id number] [place] [address] Feb, [facility] [place] [facility] [address] [facility] [id number] [place] [address] Feb, [facility] [place] [facility] [id number] [place] [address] Feb, [facility] [place] [facility] [id number] [place] [address] Feb, [facility] [place] [facility] [id number] [place] [address] Feb, [facility] [place] [facility] [id number] [place] [address] Feb, [facility] [place] [facility] [id number] [place] [address] Feb, [facility] [place] [facility] [id number] [place] [address] Feb, [facility] [place] [facility] [id number] [place] [address] January, [facility] [place] [facility] [id number] [place] [address] January, [facility] [place] [facility] [id number] [place] [address] January, [facility] [place] [facility] [id number] [place] [address] January, [facility] [place] [facility] [id number] [place] [address] January, [facility] [place] [facility] [id number] [place] [address] January, [facility] [address] [id number] [place] [address] January, [facility] [place] [facility] [id number] [place] [address] January, [facility] [place] [facility] [id number] [place] [address] January, [facility] [place] [facility] [address] [id number] [place] [address] January, [facility] [place] [facility] [address] [id number] [place] [address] January, [facility] [place] [facility] [id number] [place] [address] January, [facility] [place] [facility] [id number] [place] [address] January, [facility] [place] [facility] [id number] [place] [address] January, [facility] [place] [facility] [address] [id number] [place] [address] January, [facility] [place] [facility] [id number] [place] [address] January, [facility] [place] [facility] [id number] [place] [address] January, [facility] [place] [facility] [id number] [place] [address] January, [facility] [place] [facility] [address] [id number] [place] [address] January, [facility] [place] [facility] [address] [id number] [place] [address] January, [facility] [place] [facility] [id number] [place] [address] January, [facility] [place] [facility] [id number] [place] [address] January, [facility] [place] [facility] [id number] [place] [address] January, [facility] [id number] [place] [address] Dec, [facility] [place] [facility] [id number] [place] [address] Dec, [facility] [id number] [place] [address] Dec, [facility] [place] [facility] [id number] [place] [address] Dec, [facility] [place] [facility] [id number] [place] [address] Dec, [facility] [place] [facility] [id number] [place] [address] Nov, [facility] [id number] [place] [address] Oct, [facility] [place] [facility] [id number] [place] [address] Oct, [facility] [place] [facility] [id number] [place] [address] Oct, [facility] [place] [facility] [id number] [place] [address] Oct, [facility] [place] [facility] [id number] [place] [address] Oct, [facility] [place] [facility] [id number] [place] [address] Sep, [facility] [place] [facility] [id number] [place] [address] Sep, [facility] [place] [facility] [id number] [place] [address] Sep, [facility] [place] [facility] [id number] [place] [address] Aug, [facility] [place] [facility] [id number] [place] [address] Aug, [facility] [place] [facility] [id number] [place] [address] Aug, [facility] [place] [facility] [id number] [place] [address] Aug, [facility] [place] [facility] [id number] [place] [address] Jul, [facility] [place] [facility] [id number] [place] [address] Jul, [facility] [place] [facility] [id number] [place] [address] Jul, [facility] [place] [facility] [id number] [place] [address] Jul, [facility] [place] [facility] [id number] [place] [address] Jul, [facility] [place] [facility] [id number] [place] [address] Jul, [facility] [place] [facility] [id number] [place] [address] Jun, [facility] [place] [facility] [id number] [place] [address] Jun, [facility] [place] [facility] [id number] [place] [address] Jun, [facility] [place] [facility] [id number] [place] [address] Jun, [facility] [place] [facility] [id number] [place] [address] Jun, [facility] [place] [facility] [id number] [place] [address] Jun, [facility] [place] [facility] [id number] [place] [address] Jun, [facility] [place] [facility] [id number] [place] [address] Jun, [facility] [place] [facility] [address] [facility] [id number] [facility] [place] [address] Jun, [facility] [place] [facility] [address] [id number] [place] [address] Jun, [facility] [place] [facility] [address] [facility] [id number] [place] [address] May, [facility] [place] [facility] [id number] [place] [address] 08 May, 2012 [facility] [place] [facility] [id number] [place] [address] May, [facility] [place] [facility] [id number] [place] [address] Apr, [facility] [place] [facility] [id number] [place] [address] Apr, [facility] [place] [facility] [id number] [place] [address] Apr, [facility] [place] [facility] [id number] [place] [address] Apr, [facility] [place] [facility] [id number] [place] [address] Apr, [facility] [place] [facility] [id number] [place] [address] Apr, [facility] [place] [facility] [id number] [place] [address] Apr, [facility] [place] [facility] [id number] [place] [address] Apr, [facility] [place] [facility] [id number] [place] [address] Apr, [facility] [place] [facility] [id number] [place] [address] Mar, [facility] [place] [facility] [id number] [place] [address] Mar, [facility] [place] [facility] [id number] [place] [address] Mar, [facility] [place] [facility] [address] [id number] [place] [address] Mar, [facility] [place] [facility] [id number] [place] [address] Feb, [facility] [place] [facility] [id number] [place] [address] Feb, [facility] [place] [facility] [id number] [place] [address] Feb, [facility] [place] [facility] [id number] [place] [address] January, [facility] [place] [facility] [id number] [place] [address] January, [facility] [place] [facility] [id number] [place] [address] January, [facility] [place] [facility] [id number] [place] [address] January, [facility] [place] [facility] [id number] [place] [address] January, [facility] [place] [facility] [id number] [place] [address] Dec, [facility] [place] [facility] [id number] [place] [address] Dec, [facility] [place] [facility] [id number] [place] [address] Dec, [facility] [place] [facility] [id number] [place] [address] Oct, [facility] [place] [facility] [id number] [place] [address] Oct, [facility] [place] [facility] [id number] [place] [address] Oct, [facility] [place] [facility] [id number] [place] [address] Sep, [facility] [place] [facility] [id number] [place] [address] 18 Sep, 2011 [facility] [place] [facility] [id number] [place] [address] Aug, [facility] [place] [facility] [id number] [place] [address] Jul, [facility] [place] [facility] [id number] [place] [address] 08 Jul, 2011 [facility] [place] [facility] [id number] [place] [address] Mar, [facility] [place] [facility] [id number] [place] [address] Aug, [facility] [place] [facility] [id number] [place] [address] Jul, [facility] [place] [facility] [id number] [place] [address] Jul, [facility] [place] [facility] [id number] [place] [address] Jul, [facility] [place] [facility] [id number] [place] [address] Jul, [facility] [place] [facility] [id number] [place] [address] 14 Jun, 2010 [facility] [place] [facility] [id number] [place] [address] Jun, [facility] [place] [facility] [id number] [place] [address] Apr, [facility] [place] [facility] [id number] [place] [address] Aug, [facility] [place] [facility] [id number] [place] [address] 17 Jul, 2009 [facility] [place] [facility] [id number] [place] [address] Jul, [facility] [place] [facility] [id number] [place] [address] 13 Jul, 2009 [facility] [place] [facility] [id number] [place] [address] Jun, [facility] [id number] [place] [address] May, [facility] [id number] [place] [address] 14 Dec, 2008 [facility] [id number] [place] [address] Nov, [facility] [id number] [place] [address] Oct, [facility] [id number] [place] [address] Aug, [facility] [id number] [place] [address] Aug, [facility] [id number] [place] [address] Jun, IMMUNIZATIONS No Known Immunizations SOCIAL HISTORY [...] x 3 day s 04/2012 Hospitalization History [facility] [place]- Right wrist injury 03/29/2018
--- OUTSIDE RECORDS SUMMARY | 2020-04-09 00:31 | XMS REPORT ---
Author Author Kateryna LAURENT Organization [facility] Address [address] [place] [address] Care Team Providers Care Perishable Freight Inspector Name Role Phone YAMILETH LAURENT Unavailable PROBLEMS Type Condition ICD9-CM Code GAW51-VL Code Onset Dates Condition S tatus SNOMED Code Problem Irregular menses N92.6 Active 801 51187 Problem Migraine with aura and without status migrainosu s, not intractable G43.109 Active 6720615 Problem Uncontrolled type 2 diabetes mellitus with hyperglycemia E11.65 Active 509616937 Problem Morbid obesity due to excess calories E66.01 Active 112438727 Problem RLS (restless legs syndrome) G25.81 A ctive 38647252 Problem Morbid obesity E66.01 Active 48799 6002 ALLERGIES No Information ENCOUNTERS Encounter Location Date Diagnosis [place] [address] [address] 16 Sep, 2019 [place] [address] [address] 14 Sep, 2019 [place] [address] [address] 14 Sep, 2019 [place] [address] [address] 13 Sep, 2019 [place] [address] [address] 10 Sep, 2019 Pneumonia of left lower lobe due to infe ctious organism J18.9 and Migraine with aura and without status migrainosus, not intractable G43.109 [facility] [address] [address] 10 Sep, 2019 [facility] [address] [address] 10 Sep, 2019 [place] [address] [address] Sep, [facility] [address] [address] Sep, [facility] [address] [address] Sep, Pneumonia of left lower lobe due to infe ctious organism J18.9 and Migraine with aura and without status migrainosus, not intractable G43.109 [place] [address] [address] Aug, Irregular menses N92.6 ; Well woman exam Z01.419 ; Pelvic cramping R10.2 and Left breast lump N63.20 [place] [address] [address] Aug, [place] [address] [address] Aug, Well woman exam Z01.419 ; Left breast nenita mp N63.20 ; Irregular menses N92.6 ; Encounter for immunization Z23 ; Pelvic cramping R10.2 and Screening for cervical cancer Z12.4 [place] [address] [address] Aug, [place] [address] [address] Aug, [place] [address] [address] Aug, [place] [address] [address] Jul, [place] [address] [address] Jun, [place] [address] [address] Jun, [place] [address] [address] Jun, [facility] [address] [address] Jun, BMI 50.0-59.9, adult Z68.43 [place] [address] [address] Jun, [facility] [address] [facility] [id number] [address] [place] [address] May, Acute non-recurrent sinusiti s, unspecified location J01.90 ; Diarrhea, unspecified R19.7 ; Vomiting, unspecified R11.10 and Morbid obesity E66.01 [place] [address] [address] Apr, [place] [address] [address] Apr, Anemia due to other cause, not classifie d D64.89 and D-dimer, elevated R79.89 [place] [address] [address] Apr, [place] [address] [address] Apr, [place] [address] [address] Mar, Anemia due to other cause, not classifie d D64.89 and D-dimer, elevated R79.89 [place] [address] [address] Mar, Leg edema, right R60.0 ; High risk medic ation use Z79.899 and Morbid obesity E66.01 [place] [address] [address] Mar, BMI 50.0-59.9, adult Z68.43 [place] [address] [address] Mar, [place] [address] [address] January, Uncontrolled type 2 diabetes mellitus wi th hyperglycemia E11.65 ; RLS (restless legs syndrome) G25.81 and Morbid obesity E66.01 [place] [address] [address] 15 Oct, 2018 Lipoma of right lower extremity D17.23 [facility] [address] [address] Oct, Lipoma of right lower extremity D17.23 [facility] [address] [address] Sep, [place] [address] [address] Sep, [facility] [address] [address] Sep, [place] [address] [address] Sep, [facility] [address] [address] Sep, [facility] [address] [address] Aug, Uncontrolled type 2 diabetes mellitus wi th hyperglycemia E11.65 ; Morbid obesity due to excess calories E66.01 ; Lipoma of torso D17.1 and BMI 50.0-59.9, adult Z68.43 [place] [address] [address] Jun, Encounter for immunization Z23 [place] [address] [address] Jul, [place] [address] [address] Jun, Encounter for immunization Z23 [facility] [address] [address] May, [facility] [address] [address] Jun, Encounter for immunization Z23 [facility] [place] [facility] [address] [id number] [place] [address] May, [facility] [place] [facility] [address] [id number] [place] [address] May, [facility] [place] [facility] [address] [id number] [place] [address] Apr, [facility] [place] [facility] [address] [id number] [place] [address] Feb, [facility] [place] [facility] [address] [id number] [place] [address] Feb, [facility] [place] [facility] [address] [id number] [place] [address] Feb, [facility] [place] [facility] [address] [place] [id number] [place] [address] January, [facility] [place] [facility] [address] [place] [id number] [place] [address] January, [facility] [place] [facility] [address] [id number] [place] [address] Dec, [facility] [place] [facility] [address] [place] [id number] [place] [address] Dec, [facility] [place] [facility] [address] [place] [id number] [place] [address] Nov, [facility] [place] [facility] [address] [place] [id number] [place] [address] Nov, [facility] [place] [facility] [address] [id number] [place] [address] Nov, [facility] [place] [facility] [address] [place] [id number] [place] [address] Nov, [facility] [place] [facility] [address] [id number] [place] [address] Nov, [facility] [place] [facility] [address] [place] [id number] [place] [address] Nov, [facility] [place] [facility] [address] [id number] [place] [address] Nov, [facility] [place] [facility] [address] [facility] [id number] [place] [address] Oct, [facility] [place] [facility] [address] [facility] [id number] [place] [address] Oct, [facility] [place] [facility] [address] [id number] [place] [address] Oct, [facility] [place] [facility] [address] [id number] [place] [address] Oct, [facility] [place] [facility] [address] [id number] [place] [address] Oct, [facility] [place] [facility] [address] [id number] [place] [address] Sep, [facility] [place] [facility] [address] [id number] [place] [address] Sep, [facility] [place] [facility] [address] [id number] [place] [address] Sep, [facility] [place] [facility] [address] [id number] [place] [address] Sep, [facility] [place] [facility] [address] [id number] [place] [address] Sep, [facility] [place] [facility] [address] [id number] [place] [address] Sep, [facility] [place] [facility] [address] [id number] [place] [address] Sep, [facility] [place] [facility] [address] [id number] [place] [address] Sep, [facility] [place] [facility] [address] [id number] [place] [address] Sep, [facility] [place] [facility] [address] [id number] [place] [address] Sep, [facility] [place] [facility] [address] [id number] [place] [address] Aug, [facility] [place] [facility] [address] [facility] [id number] [place] [address] Aug, [facility] [place] [facility] [address] [facility] [id number] [place] [address] Aug, [facility] [place] [facility] [address] [id number] [place] [address] Aug, [facility] [place] [facility] [address] [id number] [place] [address] Aug, [facility] [place] [facility] [address] [facility] [id number] [place] [address] Aug, [facility] [place] [facility] [address] [id number] [place] [address] Aug, [facility] [place] [facility] [address] [id number] [place] [address] Aug, [facility] [place] [facility] [address] [id number] [place] [address] Aug, [facility] [place] [facility] [address] [id number] [place] [address] Aug, [facility] [place] [facility] [address] [id number] [place] [address] Aug, [facility] [place] [facility] [address] [id number] [place] [address] Aug, [facility] [place] [facility] [address] [id number] [place] [address] 18 Aug, 2014 [facility] [place] [facility] [address] [id number] [place] [address] 18 Aug, 2014 [facility] [place] [facility] [address] [id number] [place] [address] 17 Aug, 2014 [facility] [place] [facility] [address] [id number] [place] [address] 17 Aug, 2014 [facility] [place] [facility] [address] [id number] [place] [address] 16 Aug, 2014 [facility] [place] [facility] [address] [id number] [place] [address] 16 Aug, 2014 [facility] [place] [facility] [address] [id number] [place] [address] Aug, [facility] [place] [facility] [address] [id number] [place] [address] Aug, [facility] [place] [facility] [address] [id number] [place] [address] 08 Aug, 2014 [facility] [place] [facility] [address] [id number] [place] [address] 08 Aug, 2014 [facility] [place] [facility] [address] [id number] [place] [address] Aug, [facility] [place] [facility] [address] [id number] [place] [address] Aug, [facility] [place] [facility] [address] [id number] [place] [address] Jul, [facility] [place] [facility] [address] [id number] [place] [address] Jul, [facility] [place] [facility] [address] [id number] [place] [address] Jun, [facility] [place] [facility] [address] [id number] [place] [address] 27 Jun, 2014 [facility] [place] [facility] [address] [id number] [place] [address] 17 Jun, 2014 [facility] [place] [facility] [address] [id number] [place] [address] 17 Jun, 2014 [facility] [place] [facility] [address] [id number] [place] [address] 15 Jun, 2014 [facility] [place] [facility] [address] [place] [id number] [place] [address] 15 Jun, 2014 [facility] [place] [facility] [address] [id number] [place] [address] 14 Jun, 2014 [facility] [place] [facility] [address] [id number] [place] [address] 14 Jun, 2014 [facility] [place] [facility] [address] [facility] [id number] [place] [address] Jun, [facility] [place] [facility] [address] [id number] [place] [address] Jun, [facility] [place] [facility] [address] [id number] [place] [address] Jun, [facility] [place] [facility] [address] [id number] [place] [address] Jun, [facility] [place] [facility] [address] [id number] [place] [address] Jun, [facility] [place] [facility] [address] [id number] [place] [address] Jun, [facility] [place] [facility] [address] [id number] [place] [address] May, 2013 [facility] [place] [facility] [address] [id number] [place] [address] May, 2013 [facility] [place] [facility] [address] [id number] [place] [address] May, 2013 [facility] [place] [facility] [address] [id number] [place] [address] May, 2013 [facility] [place] [facility] [address] [id number] [place] [address] May, 2013 [facility] [place] [facility] [address] [id number] [place] [address] May, 2013 [facility] [place] [facility] [address] [id number] [place] [address] May, 2013 [facility] [place] [facility] [address] [id number] [place] [address] May, [facility] [place] [facility] [address] [id number] [place] [address] Apr, [facility] [place] [facility] [address] [id number] [place] [address] Apr, [facility] [place] [facility] [address] [id number] [place] [address] Apr, [facility] [place] [facility] [address] [facility] [id number] [facility] [place] [address] Apr, [facility] [place] [facility] [address] [facility] [id number] [facility] [place] [address] Apr, [facility] [place] [facility] [address] [facility] [id number] [facility] [place] [address] Apr, [facility] [place] [facility] [address] [facility] [id number] [place] [address] Apr, [facility] [place] [facility] [address] [facility] [id number] [place] [address] Apr, [facility] [place] [facility] [address] [facility] [id number] [place] [address] Apr, [facility] [place] [facility] [address] [facility] [id number] [facility] [place] [address] Mar, [facility] [place] [facility] [address] [id number] [facility] [place] [address] Mar, [facility] [place] [facility] [address] [facility] [id number] [facility] [place] [address] Mar, [facility] [place] [facility] [address] [id number] [facility] [place] [address] Feb, [facility] [place] [facility] [address] [facility] [id number] [facility] [place] [address] Feb, [facility] [place] [facility] [address] [id number] [place] [address] Feb, [facility] [place] [facility] [address] [facility] [id number] [facility] [place] [address] Feb, [facility] [place] [facility] [address] [facility] [id number] [place] [address] Feb, [facility] [place] [facility] [address] [facility] [id number] [place] [address] Feb, [facility] [place] [facility] [address] [id number] [facility] [place] [address] 16 Feb, 2014 [facility] [place] [facility] [address] [facility] [id number] [place] [address] Feb, [facility] [place] [facility] [address] [id number] [place] [address] Feb, [facility] [place] [facility] [address] [facility] [id number] [place] [address] Feb, [facility] [place] [facility] [address] [id number] [place] [address] Feb, [facility] [place] [facility] [address] [id number] [place] [address] Feb, [facility] [place] [facility] [address] [facility] [id number] [place] [address] Feb, [facility] [place] [facility] [address] [id number] [place] [address] Feb, [facility] [place] [facility] [address] [id number] [place] [address] Feb, [facility] [place] [facility] [address] [id number] [place] [address] Feb, [facility] [place] [facility] [address] [id number] [place] [address] January, [facility] [place] [facility] [address] [id number] [place] [address] January, [facility] [place] [facility] [address] [id number] [place] [address] January, [facility] [place] [facility] [address] [id number] [place] [address] January, [facility] [place] [facility] [address] [id number] [place] [address] January, [facility] [place] [facility] [address] [id number] [place] [address] January, [facility] [place] [facility] [address] [id number] [place] [address] January, [facility] [place] [facility] [address] [id number] [place] [address] January, [facility] [place] [facility] [address] [id number] [place] [address] January, [facility] [place] [facility] [address] [id number] [place] [address] January, [facility] [place] [facility] [address] [id number] [place] [address] January, [facility] [place] [facility] [address] [id number] [place] [address] January, [facility] [place] [facility] [address] [facility] [id number] [place] [address] January, [facility] [place] [facility] [address] [id number] [place] [address] January, [facility] [place] [facility] [address] [id number] [place] [address] January, [facility] [place] [facility] [address] [id number] [place] [address] January, [facility] [place] [facility] [address] [id number] [place] [address] January, [facility] [place] [facility] [address] [id number] [place] [address] January, [facility] [place] [facility] [address] [id number] [place] [address] January, [facility] [place] [facility] [address] [id number] [place] [address] January, [facility] [place] [facility] [address] [id number] [place] [address] January, [facility] [place] [facility] [address] [facility] [id number] [place] [address] January, [facility] [place] [facility] [address] [id number] [place] [address] January, [facility] [place] [facility] [address] [id number] [place] [address] January, [facility] [place] [facility] [address] [id number] [place] [address] January, [facility] [place] [facility] [address] [facility] [id number] [facility] [place] [address] January, [facility] [place] [facility] [address] [facility] [id number] [facility] [place] [address] Dec, [facility] [place] [facility] [address] [facility] [id number] [facility] [place] [address] Dec, [facility] [place] [facility] [address] [id number] [place] [address] Dec, [facility] [place] [facility] [address] [facility] [id number] [place] [address] Dec, [facility] [place] [facility] [address] [id number] [place] [address] Dec, [facility] [place] [facility] [address] [id number] [facility] [place] [address] Dec, [facility] [place] [facility] [address] [id number] [facility] [place] [address] Dec, [facility] [place] [facility] [address] [facility] [id number] [facility] [place] [address] Dec, [facility] [place] [facility] [address] [id number] [facility] [place] [address] Dec, [facility] [place] [facility] [address] [id number] [place] [address] Dec, [facility] [place] [facility] [address] [id number] [place] [address] Dec, [facility] [place] [facility] [address] [facility] [id number] [facility] [place] [address] Dec, [facility] [place] [facility] [address] [id number] [place] [address] Dec, [facility] [place] [facility] [address] [facility] [id number] [place] [address] Dec, [facility] [place] [facility] [address] [id number] [facility] [place] [address] Dec, [facility] [place] [facility] [address] [id number] [place] [address] Dec, [facility] [place] [facility] [address] [id number] [facility] [place] [address] Dec, [facility] [place] [facility] [address] [facility] [id number] [place] [address] Dec, [facility] [place] [facility] [address] [id number] [place] [address] Dec, [facility] [place] [facility] [address] [id number] [place] [address] Dec, [facility] [place] [facility] [address] [facility] [id number] [place] [address] Dec, [facility] [place] [facility] [address] [id number] [place] [address] Dec, [facility] [place] [facility] [address] [id number] [place] [address] Nov, [facility] [place] [facility] [address] [id number] [place] [address] Nov, [facility] [place] [facility] [address] [id number] [place] [address] Nov, [facility] [place] [facility] [address] [id number] [place] [address] Nov, [facility] [place] [facility] [address] [id number] [place] [address] Nov, [facility] [place] [facility] [address] [id number] [place] [address] Nov, [facility] [place] [facility] [address] [id number] [place] [address] Nov, [facility] [place] [facility] [address] [id number] [place] [address] Nov, [facility] [place] [facility] [address] [id number] [place] [address] Nov, [facility] [place] [facility] [address] [id number] [place] [address] Nov, [facility] [place] [facility] [address] [id number] [place] [address] Nov, [facility] [place] [facility] [address] [id number] [place] [address] Nov, [facility] [place] [facility] [address] [id number] [place] [address] Nov, [facility] [place] [facility] [address] [id number] [place] [address] Nov, [facility] [place] [facility] [address] [id number] [place] [address] Nov, [facility] [place] [facility] [address] [id number] [place] [address] Nov, [facility] [place] [facility] [address] [id number] [place] [address] Oct, [facility] [place] [facility] [address] [id number] [place] [address] Oct, [facility] [place] [facility] [address] [id number] [place] [address] Oct, [facility] [place] [facility] [address] [id number] [place] [address] Oct, [facility] [place] [facility] [address] [id number] [place] [address] Oct, [facility] [place] [facility] [address] [id number] [place] [address] Oct, [facility] [place] [facility] [address] [id number] [place] [address] Oct, [facility] [place] [facility] [address] [id number] [place] [address] Oct, [facility] [place] [facility] [address] [id number] [place] [address] Oct, [facility] [place] [facility] [address] [id number] [place] [address] Oct, [facility] [place] [facility] [address] [id number] [place] [address] 14 Oct, 2013 [facility] [place] [facility] [address] [id number] [place] [address] 14 Oct, 2013 [facility] [place] [facility] [address] [id number] [place] [address] 04 Oct, 2013 [facility] [place] [facility] [address] [id number] [place] [address] Oct, [facility] [place] [facility] [address] [id number] [place] [address] Oct, [facility] [place] [facility] [address] [id number] [place] [address] Sep, [facility] [place] [facility] [address] [id number] [place] [address] Sep, [facility] [place] [facility] [address] [id number] [place] [address] Sep, [facility] [facility] [address] [id number] [place] [address] Sep, [facility] [address] [id number] [place] [address] Sep, [facility] [address] [id number] [place] [address] Sep, [facility] [address] [id number] [place] [address] Sep, [facility] [address] [id number] [place] [address] Sep, [facility] [address] [id number] [place] [address] Sep, [facility] [address] [id number] [place] [address] Sep, [facility] [address] [id number] [place] [address] Sep, [facility] [address] [id number] [place] [address] Sep, [facility] [address] [id number] [place] [address] Sep, [facility] [address] [id number] [place] [address] Aug, [facility] [address] [id number] [place] [address] Aug, [facility] [address] [id number] [place] [address] Aug, [facility] [address] [id number] [place] [address] Aug, [facility] [address] [id number] [place] [address] Aug, [facility] [address] [id number] [place] [address] 17 Aug, 2013 [facility] [address] [id number] [place] [address] 16 Aug, 2013 [facility] [address] [id number] [place] [address] Aug, [facility] [address] [id number] [place] [address] Aug, [facility] [address] [id number] [place] [address] Aug, [facility] [address] [id number] [place] [address] Aug, [facility] [address] [id number] [place] [address] Aug, [facility] [address] [id number] [place] [address] Aug, [facility] [address] [id number] [place] [address] Aug, [facility] [address] [id number] [place] [address] Jul, [facility] [address] [id number] [place] [address] 19 Jul, 2013 [facility] [address] [id number] [place] [address] 18 Jul, 2013 [facility] [address] [id number] [place] [address] 18 Jul, 2013 [facility] [address] [id number] [place] [address] 14 Jul, 2013 [facility] [address] [id number] [place] [address] 14 Jul, 2013 [facility] [address] [id number] [place] [address] 14 Jul, 2013 [facility] [address] [id number] [place] [address] 14 Jul, 2013 [facility] [address] [id number] [place] [address] 07 Jul, 2013 [facility] [address] [id number] [place] [address] 07 Jul, 2013 [facility] [address] [id number] [place] [address] 06 Jul, 2013 [facility] [id number] [place] [address] 06 Jul, 2013 [facility] [address] [id number] [place] [address] 05 Jul, 2013 [facility] [address] [id number] [place] [address] 05 Jul, 2013 [facility] [address] [id number] [place] [address] Jun, [facility] [address] [id number] [place] [address] Jun, [facility] [address] [id number] [place] [address] 15 Jun, 2013 [facility] [address] [id number] [place] [address] 15 Jun, 2013 [facility] [address] [id number] [place] [address] 14 Oct, 2012 [facility] [address] [id number] [place] [address] 24 Sep, 2012 [facility] [address] [id number] [place] [address] 20 Sep, 2012 [facility] [address] [id number] [place] [address] 20 Sep, 2012 [facility] [address] [id number] [place] [address] 20 Sep, 2012 [facility] [address] [id number] [place] [address] 19 Sep, 2012 [facility] [address] [id number] [place] [address] 13 May, 2012 [facility] [address] [id number] [place] [address] 12 Sep, 2012 [facility] [address] [id number] [place] [address] 12 Sep, 2012 [facility] [address] [id number] [place] [address] 11 Sep, 2012 [facility] [address] [id number] [place] [address] 11 Sep, 2012 [facility] [address] [id number] [place] [address] 11 Sep, 2012 [facility] [address] [id number] [place] [address] 09 Sep, 2012 [facility] [address] [id number] [place] [address] 05 Sep, 2012 [facility] [address] [id number] [place] [address] 04 Sep, 2012 [facility] [address] [id number] [place] [address] 03 Sep, 2012 [facility] [address] [id number] [place] [address] Apr, [facility] [address] [id number] [place] [address] Apr, [facility] [address] [facility] [id number] [facility] [place] [address] Apr, [facility] [address] [facility] [id number] [place] [address] Apr, [facility] [address] [id number] [facility] [place] [address] Apr, [facility] [address] [facility] [id number] [facility] [place] [address] Apr, [facility] [address] [id number] [place] [address] Apr, [facility] [address] [id number] [place] [address] Apr, [facility] [address] [id number] [place] [address] Apr, [facility] [address] [id number] [place] [address] Mar, [facility] [address] [id number] [place] [address] Mar, [facility] [address] [id number] [place] [address] Mar, [facility] [address] [id number] [place] [address] Mar, [facility] [address] [id number] [place] [address] Mar, [facility] [address] [facility] [id number] [place] [address] Mar, [facility] [address] [id number] [place] [address] Mar, [facility] [address] [id number] [place] [address] Mar, [facility] [address] [id number] [place] [address] Mar, [facility] [address] [id number] [facility] [place] [address] Mar, [facility] [address] [id number] [facility] [place] [address] Mar, [facility] [address] [id number] [facility] [place] [address] Feb, [facility] [address] [id number] [facility] [place] [address] Feb, [facility] [address] [id number] [facility] [place] [address] Feb, [facility] [address] [id number] [place] [address] Feb, [facility] [address] [id number] [place] [address] Feb, [facility] [address] [id number] [place] [address] Feb, [facility] [address] [id number] [place] [address] Feb, [facility] [address] [id number] [place] [address] Feb, [facility] [address] [id number] [place] [address] Feb, [facility] [address] [id number] [place] [address] January, [facility] [address] [id number] [place] [address] January, [facility] [address] [id number] [place] [address] January, [facility] [address] [id number] [place] [address] January, [facility] [address] [id number] [place] [address] January, [facility] [address] [id number] [facility] [place] [address] January, [facility] [address] [id number] [place] [address] January, [facility] [address] [facility] [id number] [place] [address] January, [facility] [address] [id number] [place] [address] January, [facility] [address] [id number] [place] [address] January, [facility] [address] [id number] [place] [address] January, [facility] [address] [id number] [place] [address] January, [facility] [address] [id number] [place] [address] January, [facility] [address] [id number] [place] [address] January, [facility] [address] [id number] [place] [address] January, [facility] [address] [id number] [place] [address] January, [facility] [address] [id number] [place] [address] January, [facility] [address] [id number] [place] [address] January, [facility] [address] [id number] [place] [address] January, [facility] [address] [id number] [place] [address] January, [facility] [address] [id number] [place] [address] January, [facility] [address] [id number] [place] [address] January, [facility] [address] [id number] [place] [address] January, [facility] [address] [id number] [place] [address] Dec, [facility] [address] [id number] [place] [address] Dec, [facility] [address] [id number] [place] [address] Dec, [facility] [address] [id number] [place] [address] Dec, [facility] [address] [id number] [place] [address] Dec, [facility] [address] [id number] [place] [address] Nov, [facility] [address] [id number] [place] [address] Oct, [facility] [address] [id number] [place] [address] Oct, [facility] [address] [id number] [place] [address] Oct, [facility] [address] [id number] [place] [address] Oct, [facility] [address] [id number] [place] [address] Oct, [facility] [address] [id number] [place] [address] Sep, [facility] [address] [id number] [place] [address] Sep, [facility] [address] [id number] [place] [address] Sep, [facility] [address] [id number] [place] [address] Aug, [facility] [address] [id number] [place] [address] Aug, [facility] [address] [id number] [place] [address] Aug, [facility] [address] [id number] [place] [address] Aug, [facility] [address] [id number] [place] [address] Jul, [facility] [address] [id number] [place] [address] Jul, [facility] [address] [id number] [place] [address] Jul, [facility] [address] [id number] [place] [address] Jul, [facility] [id number] [place] [address] Jul, [facility] [address] [id number] [place] [address] Jul, [facility] [address] [id number] [place] [address] Jun, [facility] [address] [id number] [place] [address] Jun, [facility] [address] [id number] [place] [address] Jun, [facility] [address] [id number] [place] [address] Jun, [facility] [address] [id number] [place] [address] Jun, [facility] [id number] [place] [address] Jun, [facility] [address] [id number] [place] [address] Jun, [facility] [address] [id number] [place] [address] Jun, [facility] [address] [id number] [place] [address] Jun, [facility] [address] [id number] [place] [address] Jun, [facility] [address] [id number] [place] [address] May, [facility] [address] [id number] [place] [address] 08 May, 2012 [facility] [address] [id number] [place] [address] May, [facility] [address] [id number] [place] [address] Apr, [facility] [address] [id number] [place] [address] Apr, [facility] [address] [id number] [place] [address] Apr, [facility] [address] [id number] [place] [address] Apr, [facility] [address] [id number] [place] [address] Apr, [facility] [address] [id number] [place] [address] Apr, [facility] [address] [id number] [place] [address] Apr, [facility] [address] [id number] [place] [address] Apr, [facility] [address] [id number] [place] [address] Apr, [facility] [address] [id number] [place] [address] Mar, [facility] [address] [id number] [place] [address] Mar, [facility] [address] [id number] [place] [address] Mar, [facility] [address] [id number] [place] [address] Mar, [facility] [address] [id number] [place] [address] Feb, [facility] [address] [id number] [place] [address] Feb, [facility] [address] [id number] [place] [address] Feb, [facility] [address] [id number] [place] [address] January, [facility] [address] [id number] [place] [address] January, [facility] [address] [id number] [place] [address] January, [facility] [address] [id number] [place] [address] January, [facility] [address] [id number] [place] [address] January, [facility] [address] [id number] [place] [address] Dec, [facility] [address] [id number] [place] [address] Dec, [facility] [address] [id number] [place] [address] Dec, [facility] [address] [id number] [place] [address] Oct, [facility] [address] [id number] [place] [address] Oct, [facility] [address] [id number] [place] [address] Oct, [facility] [address] [id number] [place] [address] Sep, [facility] [address] [id number] [place] [address] 18 Sep, 2011 [facility] [address] [id number] [place] [address] 07 Aug, 2011 [facility] [address] [id number] [place] [address] 08 Jul, 2011 [facility] [address] [id number] [place] [address] 08 Jul, 2011 [facility] [address] [id number] [place] [address] Mar, [facility] [address] [id number] [place] [address] Aug, [facility] [address] [id number] [place] [address] Jul, [facility] [address] [id number] [place] [address] Jul, [facility] [address] [id number] [place] [address] Jul, [facility] [address] [id number] [place] [address] Jul, [facility] [address] [id number] [place] [address] 14 Jun, 2010 [facility] [address] [id number] [place] [address] Jun, [facility] [address] [id number] [place] [address] Apr, [facility] [address] [id number] [place] [address] Aug, [facility] [id number] [place] [address] 17 Jul, 2009 [facility] [address] [id number] [place] [address] 17 Jul, 2009 [facility] [address] [id number] [place] [address] Jul, [facility] [address] [id number] [place] [address] 23 Jun, 2009 [facility] [id number] [place] [address] 10 May, 2009 [facility] [address] [id number] [place] [address] 14 Dec, 2008 [facility] [id number] [place] [address] Nov, [facility] [id number] [place] [address] Oct, [facility] [id number] [place] [address] Aug, [facility] [id number] [place] [address] Aug, [facility] [id number] [place] [address] Jun, IMMUNIZATIONS No Known Immunizations SOCIAL HISTORY Never Assessed REASON FOR VISIT PLAN OF CARE VITAL SIGNS MEDICATIONS Unknown Medications RESULTS No Results PROCEDURES Procedure Date Ordered Result Body Site CULTURE, BACTERIA, OTHER January 19, 2014 INSTRUCTIONS MEDICATIONS ADMINISTERED No Known Medications [...] 04/2012 Hospitalization History [facility] [place]- Right wrist injury 03/29/2018
--- OUTSIDE RECORDS SUMMARY | 2020-04-09 00:32 | XMS REPORT ---
Author Author Kateryna TAYLOR Organization [facility] Address [address] [place] [address] Care Team Providers Care Shale [employer]er [employer]asting Name Role Phone SHAWANDAMerritt SUN Unavailable PROBLEMS Type Condition ICD9-CM Code SYA57-WJ Code Onset Dates Condition S tatus SNOMED Code Problem Irregular menses N92.6 Active 801 39048 Problem Migraine with aura and without status migrainosu s, not intractable G43.109 Active 6170026 Problem Uncontrolled type 2 diabetes mellitus with hyperglycemia E11.65 Active 511732952 Problem Morbid obesity due to excess calories E66.01 Active 327855515 Problem RLS (restless legs syndrome) G25.81 A ctive 80930729 Problem Morbid obesity E66.01 Active 18435 6002 ALLERGIES No Information ENCOUNTERS Encounter Location Date Diagnosis [place] [address] [address] 16 Sep, 2019 [place] [address] [address] 14 Sep, 2019 [place] [address] [address] 14 Sep, 2019 [place] [address] [address] 13 Sep, 2019 [place] [address] [address] 10 Sep, 2019 Pneumonia of left lower lobe due to infe ctious organism J18.9 and Migraine with aura and without status migrainosus, not intractable G43.109 [facility] [address] [address] 10 Sep, 2019 [place] [address] [address] 10 Sep, 2019 [facility] [address] [address] Sep, [facility] [address] [address] 08 Sep, 2019 [facility] [address] [address] 08 Sep, 2019 Pneumonia of left lower lobe due to infe ctious organism J18.9 and Migraine with aura and without status migrainosus, not intractable G43.109 [place] [address] [address] Aug, Irregular menses N92.6 ; Well woman exam Z01.419 ; Pelvic cramping R10.2 and Left breast lump N63.20 [place] [address] [address] Aug, [place] [address] [address] Aug, Well woman exam Z01.419 ; Left breast nenita mp N63.20 ; Irregular menses N92.6 ; Encounter for immunization Z23 ; Pelvic cramping R10.2 and Screening for cervical cancer Z12.4 [place] [address] [address] Aug, [place] [address] [address] Aug, [place] [address] [address] Aug, [place] [address] [address] Jul, [place] [address] [address] Jun, [place] [address] [address] Jun, [place] [address] [address] Jun, [facility] [address] [address] Jun, BMI 50.0-59.9, adult Z68.43 [place] [address] [address] Jun, [facility] [address] [facility] [id number] [address] [place] [address] May, Acute non-recurrent sinusiti s, unspecified location J01.90 ; Diarrhea, unspecified R19.7 ; Vomiting, unspecified R11.10 and Morbid obesity E66.01 [place] [address] [address] Apr, [place] [address] [address] Apr, Anemia due to other cause, not classifie d D64.89 and D-dimer, elevated R79.89 [place] [address] [address] Apr, [place] [address] [address] Apr, [place] [address] [address] Mar, Anemia due to other cause, not classifie d D64.89 and D-dimer, elevated R79.89 [place] [address] [address] Mar, Leg edema, right R60.0 ; High risk medic ation use Z79.899 and Morbid obesity E66.01 [place] [address] [address] Mar, BMI 50.0-59.9, adult Z68.43 [place] [address] [address] Mar, [place] [address] [address] January, Uncontrolled type 2 diabetes mellitus wi th hyperglycemia E11.65 ; RLS (restless legs syndrome) G25.81 and Morbid obesity E66.01 [place] [address] [address] 15 Oct, 2018 Lipoma of right lower extremity D17.23 [facility] [address] [address] Oct, Lipoma of right lower extremity D17.23 [facility] [address] [address] Sep, [place] [address] [address] Sep, [facility] [address] [address] Sep, [place] [address] [address] Sep, [facility] [address] [address] Sep, [place] [address] [address] Aug, Uncontrolled type 2 diabetes mellitus wi th hyperglycemia E11.65 ; Morbid obesity due to excess calories E66.01 ; Lipoma of torso D17.1 and BMI 50.0-59.9, adult Z68.43 [place] [address] [address] Jun, Encounter for immunization Z23 [place] [address] [address] Jul, [place] [address] [address] Jun, Encounter for immunization Z23 [facility] [address] [address] May, [facility] [address] [address] Jun, Encounter for immunization Z23 [facility] [place] [facility] [address] [id number] [place] [address] May, [facility] [place] [facility] [address] [id number] [place] [address] May, [facility] [place] [facility] [address] [id number] [place] [address] Apr, [facility] [place] [facility] [address] [place] [id number] [place] [address] Feb, [facility] [place] [facility] [address] [id number] [place] [address] Feb, [facility] [place] [facility] [address] [id number] [place] [address] Feb, [facility] [place] [facility] [address] [place] [id number] [place] [address] January, [facility] [place] [facility] [address] [place] [id number] [place] [address] January, [facility] [place] [facility] [address] [id number] [place] [address] Dec, [facility] [place] [facility] [address] [place] [id number] [place] [address] Dec, [facility] [place] [facility] [address] [id number] [place] [address] Nov, [facility] [place] [facility] [address] [place] [id number] [place] [address] Nov, [facility] [place] [facility] [address] [id number] [place] [address] Nov, [facility] [place] [facility] [address] [place] [id number] [place] [address] Nov, [facility] [place] [facility] [address] [id number] [place] [address] Nov, [facility] [place] [facility] [address] [place] [id number] [place] [address] Nov, [facility] [place] [facility] [address] [id number] [place] [address] Nov, [facility] [place] [facility] [address] [id number] [place] [address] Oct, [facility] [place] [facility] [address] [id number] [place] [address] Oct, [facility] [place] [facility] [address] [id number] [place] [address] Oct, [facility] [place] [facility] [address] [id number] [place] [address] Oct, [facility] [place] [facility] [address] [id number] [place] [address] Oct, [facility] [place] [facility] [address] [id number] [place] [address] Sep, [facility] [place] [facility] [address] [id number] [place] [address] Sep, [facility] [place] [facility] [address] [id number] [place] [address] Sep, [facility] [place] [facility] [address] [id number] [place] [address] Sep, [facility] [place] [facility] [address] [id number] [place] [address] Sep, [facility] [place] [facility] [address] [id number] [place] [address] Sep, [facility] [place] [facility] [address] [id number] [place] [address] Sep, [facility] [place] [facility] [address] [id number] [place] [address] Sep, [facility] [place] [facility] [address] [id number] [place] [address] Sep, [facility] [place] [facility] [address] [id number] [place] [address] Sep, [facility] [place] [facility] [address] [id number] [place] [address] Aug, [facility] [place] [facility] [address] [id number] [place] [address] Aug, [facility] [place] [facility] [address] [id number] [place] [address] Aug, [facility] [place] [facility] [address] [id number] [place] [address] Aug, [facility] [place] [facility] [address] [id number] [place] [address] Aug, [facility] [place] [facility] [address] [id number] [place] [address] Aug, [facility] [place] [facility] [address] [id number] [place] [address] Aug, [facility] [place] [facility] [address] [id number] [place] [address] Aug, [facility] [place] [facility] [address] [id number] [place] [address] Aug, [facility] [place] [facility] [address] [id number] [place] [address] Aug, [facility] [place] [facility] [address] [id number] [place] [address] Aug, [facility] [place] [facility] [address] [id number] [place] [address] Aug, [facility] [place] [facility] [address] [id number] [place] [address] Aug, [facility] [place] [facility] [address] [id number] [place] [address] 18 Aug, 2014 [facility] [place] [facility] [address] [id number] [place] [address] 17 Aug, 2014 [facility] [place] [facility] [address] [id number] [place] [address] 17 Aug, 2014 [facility] [place] [facility] [address] [id number] [place] [address] 16 Aug, 2014 [facility] [place] [facility] [address] [id number] [place] [address] 16 Aug, 2014 [facility] [place] [facility] [address] [id number] [place] [address] 12 Aug, 2014 [facility] [place] [facility] [address] [id number] [place] [address] 12 Aug, 2014 [facility] [place] [facility] [address] [id number] [place] [address] 08 Aug, 2014 [facility] [place] [facility] [address] [id number] [place] [address] 08 Aug, 2014 [facility] [place] [facility] [address] [id number] [place] [address] 05 Aug, 2014 [facility] [place] [facility] [address] [id number] [place] [address] 05 Aug, 2014 [facility] [place] [facility] [address] [id number] [place] [address] Jul, [facility] [place] [facility] [address] [id number] [place] [address] Jul, [facility] [place] [facility] [address] [id number] [place] [address] Jun, [facility] [place] [facility] [address] [id number] [place] [address] 27 Jun, 2014 [facility] [place] [facility] [address] [id number] [place] [address] 17 Jun, 2014 [facility] [place] [facility] [address] [id number] [place] [address] 17 Jun, 2014 [facility] [place] [facility] [address] [id number] [place] [address] 15 Jun, 2014 [facility] [place] [facility] [address] [id number] [place] [address] 15 Jun, 2014 [facility] [place] [facility] [address] [id number] [place] [address] 14 Jun, 2014 [facility] [place] [facility] [address] [id number] [place] [address] 14 Jun, 2014 [facility] [place] [facility] [address] [facility] [id number] [place] [address] 13 Jun, 2013 [facility] [place] [facility] [address] [id number] [place] [address] Jun, 2013 [facility] [place] [facility] [address] [id number] [place] [address] Jun, 2013 [facility] [place] [facility] [address] [id number] [place] [address] Jun, 2013 [facility] [place] [facility] [address] [id number] [place] [address] Jun, [facility] [place] [facility] [address] [id number] [place] [address] Jun, [facility] [place] [facility] [address] [id number] [place] [address] May, 2013 [facility] [place] [facility] [address] [id number] [place] [address] May, 2013 [facility] [place] [facility] [address] [id number] [place] [address] May, 2013 [facility] [place] [facility] [address] [id number] [place] [address] May, 2013 [facility] [place] [facility] [address] [id number] [place] [address] May, 2013 [facility] [place] [facility] [address] [id number] [place] [address] May, 2013 [facility] [place] [facility] [address] [id number] [place] [address] May, 2013 [facility] [place] [facility] [address] [id number] [place] [address] May, [facility] [place] [facility] [address] [id number] [place] [address] Apr, [facility] [place] [facility] [address] [id number] [place] [address] Apr, [facility] [place] [facility] [address] [id number] [place] [address] Apr, [facility] [place] [facility] [address] [facility] [id number] [facility] [address] Apr, [facility] [place] [facility] [address] [facility] [id number] [facility] [place] [address] Apr, [facility] [place] [facility] [address] [id number] [facility] [place] [address] Apr, [facility] [place] [facility] [address] [facility] [id number] [place] [address] Apr, [facility] [place] [facility] [address] [facility] [id number] [facility] [place] [address] Apr, [facility] [place] [facility] [address] [facility] [id number] [place] [address] Apr, [facility] [place] [facility] [address] [id number] [facility] [place] [address] Mar, [facility] [place] [facility] [address] [id number] [facility] [place] [address] Mar, [facility] [place] [facility] [address] [facility] [id number] [facility] [place] [address] Mar, [facility] [place] [facility] [address] [id number] [facility] [place] [address] Feb, [facility] [place] [facility] [address] [id number] [place] [address] Feb, [facility] [place] [facility] [address] [id number] [place] [address] Feb, [facility] [place] [facility] [address] [facility] [id number] [facility] [place] [address] Feb, [facility] [place] [facility] [address] [id number] [place] [address] Feb, [facility] [place] [facility] [address] [facility] [id number] [place] [address] Feb, [facility] [place] [facility] [address] [id number] [place] [address] Feb, [facility] [place] [facility] [address] [id number] [facility] [place] [address] 16 Feb, 2014 [facility] [place] [facility] [address] [id number] [place] [address] Feb, [facility] [place] [facility] [address] [facility] [id number] [place] [address] Feb, [facility] [place] [facility] [address] [id number] [place] [address] Feb, [facility] [place] [facility] [address] [facility] [id number] [place] [address] Feb, [facility] [place] [facility] [address] [facility] [id number] [place] [address] Feb, [facility] [place] [facility] [address] [id number] [place] [address] Feb, [facility] [place] [facility] [address] [id number] [place] [address] Feb, [facility] [place] [facility] [address] [id number] [place] [address] Feb, [facility] [place] [facility] [address] [id number] [place] [address] January, [facility] [place] [facility] [address] [id number] [place] [address] January, [facility] [place] [facility] [address] [id number] [place] [address] January, [facility] [place] [facility] [address] [id number] [place] [address] January, [facility] [place] [facility] [address] [facility] [id number] [place] [address] January, [facility] [place] [facility] [address] [id number] [place] [address] January, [facility] [place] [facility] [address] [id number] [place] [address] January, [facility] [place] [facility] [address] [id number] [place] [address] January, [facility] [place] [facility] [address] [id number] [place] [address] January, [facility] [place] [facility] [address] [id number] [place] [address] January, [facility] [place] [facility] [address] [id number] [place] [address] January, [facility] [place] [facility] [address] [id number] [place] [address] January, [facility] [place] [facility] [address] [facility] [id number] [place] [address] January, [facility] [place] [facility] [address] [id number] [place] [address] January, [facility] [place] [facility] [address] [id number] [place] [address] January, [facility] [place] [facility] [address] [id number] [place] [address] January, [facility] [place] [facility] [address] [id number] [place] [address] January, [facility] [place] [facility] [address] [id number] [place] [address] January, [facility] [place] [facility] [address] [id number] [place] [address] January, [facility] [place] [facility] [address] [id number] [place] [address] January, [facility] [place] [facility] [address] [id number] [place] [address] January, [facility] [place] [facility] [address] [id number] [place] [address] January, [facility] [place] [facility] [address] [id number] [place] [address] January, [facility] [place] [facility] [address] [id number] [place] [address] January, [facility] [place] [facility] [address] [id number] [place] [address] January, [facility] [place] [facility] [address] [facility] [id number] [facility] [place] [address] January, [facility] [place] [facility] [address] [facility] [id number] [facility] [place] [address] Dec, [facility] [place] [facility] [address] [id number] [facility] [place] [address] Dec, [facility] [place] [facility] [address] [id number] [place] [address] Dec, [facility] [place] [facility] [address] [facility] [id number] [facility] [place] [address] Dec, [facility] [place] [facility] [address] [id number] [place] [address] Dec, [facility] [place] [facility] [address] [id number] [facility] [place] [address] Dec, [facility] [place] [facility] [address] [id number] [facility] [place] [address] Dec, [facility] [place] [facility] [address] [id number] [facility] [place] [address] Dec, [facility] [place] [facility] [address] [id number] [facility] [place] [address] Dec, [facility] [place] [facility] [address] [id number] [place] [address] Dec, [facility] [place] [facility] [address] [id number] [place] [address] Dec, [facility] [place] [facility] [address] [id number] [facility] [place] [address] Dec, [facility] [place] [facility] [address] [id number] [place] [address] Dec, [facility] [place] [facility] [address] [id number] [place] [address] Dec, [facility] [place] [facility] [address] [id number] [facility] [place] [address] Dec, [facility] [place] [facility] [address] [id number] [facility] [place] [address] 09 Dec, 2013 [facility] [place] [facility] [address] [facility] [id number] [place] [address] Dec, [facility] [place] [facility] [address] [facility] [id number] [place] [address] Dec, [facility] [place] [facility] [address] [id number] [place] [address] Dec, [facility] [place] [facility] [address] [id number] [place] [address] Dec, [facility] [place] [facility] [address] [facility] [id number] [place] [address] Dec, [facility] [place] [facility] [address] [id number] [place] [address] Dec, [facility] [place] [facility] [address] [id number] [place] [address] Nov, [facility] [place] [facility] [address] [id number] [place] [address] Nov, [facility] [place] [facility] [address] [id number] [place] [address] Nov, [facility] [place] [facility] [address] [id number] [place] [address] Nov, [facility] [place] [facility] [address] [id number] [place] [address] Nov, [facility] [place] [facility] [address] [id number] [place] [address] Nov, [facility] [place] [facility] [address] [facility] [id number] [place] [address] Nov, [facility] [place] [facility] [address] [id number] [place] [address] Nov, [facility] [place] [facility] [address] [id number] [place] [address] Nov, [facility] [place] [facility] [address] [id number] [place] [address] Nov, [facility] [place] [facility] [address] [id number] [place] [address] 18 Nov, 2013 [facility] [place] [facility] [address] [id number] [place] [address] 18 Nov, 2013 [facility] [place] [facility] [address] [id number] [place] [address] Nov, [facility] [place] [facility] [address] [id number] [place] [address] 14 Nov, 2013 [facility] [place] [facility] [address] [id number] [place] [address] Nov, [facility] [place] [facility] [address] [id number] [place] [address] Nov, [facility] [place] [facility] [address] [id number] [place] [address] Oct, [facility] [place] [facility] [address] [id number] [place] [place] [address] Oct, [facility] [place] [facility] [address] [id number] [place] [address] Oct, [facility] [place] [facility] [address] [id number] [place] [address] Oct, [facility] [place] [facility] [address] [id number] [place] [address] 24 Oct, 2013 [facility] [place] [facility] [address] [id number] [place] [address] 24 Oct, 2013 [facility] [place] [facility] [address] [id number] [place] [address] Oct, [facility] [place] [facility] [address] [id number] [place] [address] Oct, [facility] [place] [facility] [address] [id number] [place] [address] Oct, [facility] [place] [facility] [address] [id number] [place] [address] 17 Oct, 2013 [facility] [place] [facility] [address] [id number] [place] [address] 14 Oct, 2013 [facility] [place] [facility] [address] [id number] [place] [address] 14 Oct, 2013 [facility] [place] [facility] [address] [facility] [id number] [place] [address] 04 Oct, 2013 [facility] [place] [facility] [address] [id number] [place] [address] Oct, [facility] [place] [facility] [address] [id number] [place] [address] Oct, [facility] [place] [facility] [address] [id number] [place] [address] Sep, [facility] [place] [facility] [address] [id number] [place] [address] Sep, [facility] [place] [facility] [address] [id number] [place] [address] Sep, [facility] [place] [facility] [address] [id number] [place] [address] Sep, [facility] [place] [facility] [address] [id number] [place] [address] Sep, [facility] [place] [facility] [address] [id number] [place] [address] Sep, [facility] [place] [facility] [address] [id number] [place] [address] Sep, [facility] [place] [facility] [address] [id number] [place] [address] Sep, [facility] [place] [facility] [address] [id number] [place] [address] Sep, [facility] [place] [facility] [address] [id number] [place] [address] Sep, [facility] [place] [facility] [address] [id number] [place] [address] Sep, [facility] [place] [facility] [address] [id number] [place] [address] Sep, [facility] [place] [facility] [address] [id number] [place] [address] Sep, [facility] [place] [facility] [address] [id number] [place] [address] Aug, [facility] [place] [facility] [address] [id number] [place] [address] Aug, [facility] [place] [facility] [address] [id number] [place] [address] Aug, [facility] [place] [facility] [address] [id number] [place] [address] Aug, [facility] [place] [facility] [address] [id number] [place] [address] Aug, [facility] [place] [facility] [address] [id number] [place] [address] 17 Aug, 2013 [facility] [place] [facility] [address] [id number] [place] [address] 16 Aug, 2013 [facility] [place] [facility] [address] [id number] [place] [address] 16 Aug, 2013 [facility] [place] [facility] [address] [id number] [place] [address] Aug, [facility] [place] [facility] [address] [id number] [place] [address] Aug, [facility] [place] [facility] [address] [id number] [place] [address] Aug, [facility] [place] [facility] [address] [id number] [place] [address] Aug, [facility] [place] [facility] [address] [id number] [place] [address] Aug, [facility] [place] [facility] [address] [id number] [place] [address] Aug, [facility] [place] [facility] [address] [id number] [place] [address] Jul, [facility] [place] [facility] [address] [id number] [place] [address] 19 Jul, 2012 [facility] [place] [facility] [address] [id number] [place] [address] 18 Jul, 2013 [facility] [place] [facility] [address] [id number] [place] [address] 18 Jul, 2013 [facility] [place] [facility] [address] [id number] [place] [address] 14 Jul, 2013 [facility] [place] [facility] [address] [id number] [place] [address] 14 Jul, 2013 [facility] [place] [facility] [address] [id number] [place] [address] 14 Jul, 2013 [facility] [place] [facility] [address] [id number] [place] [address] 14 Jul, 2013 [facility] [place] [facility] [address] [id number] [place] [address] 07 Jul, 2013 [facility] [place] [facility] [address] [id number] [place] [address] 07 Jul, 2013 [facility] [place] [facility] [address] [id number] [place] [address] 06 Jul, 2013 [facility] [place] [facility] [address] [id number] [place] [address] 06 Jul, 2013 [facility] [place] [facility] [address] [id number] [place] [address] 05 Jul, 2013 [facility] [place] [facility] [address] [id number] [place] [address] 05 Jul, 2013 [facility] [place] [facility] [address] [id number] [place] [address] Jun, [facility] [place] [facility] [address] [id number] [place] [address] Jun, [facility] [place] [facility] [address] [id number] [place] [address] 15 Jun, 2013 [facility] [place] [facility] [address] [id number] [place] [address] 15 Jun, 2013 [facility] [place] [facility] [address] [id number] [place] [address] 14 Oct, 2012 [facility] [place] [facility] [address] [id number] [place] [address] 24 Sep, 2012 [facility] [place] [facility] [address] [id number] [place] [address] 20 Sep, 2012 [facility] [place] [facility] [address] [id number] [place] [address] 20 Sep, 2012 [facility] [place] [facility] [address] [id number] [place] [address] 20 Sep, 2012 [facility] [place] [facility] [address] [id number] [place] [address] 19 Sep, 2012 [facility] [place] [facility] [address] [id number] [place] [address] 13 Sep, 2012 [facility] [place] [facility] [address] [id number] [place] [address] 12 Sep, 2012 [facility] [place] [facility] [address] [id number] [place] [address] 12 Sep, 2012 [facility] [place] [facility] [address] [id number] [place] [address] 11 Sep, 2012 [facility] [place] [facility] [address] [id number] [place] [address] 11 Sep, 2012 [facility] [place] [facility] [address] [id number] [place] [address] 11 Sep, 2012 [facility] [place] [facility] [address] [id number] [place] [address] 09 Sep, 2012 [facility] [place] [facility] [address] [id number] [place] [address] 05 Sep, 2012 [facility] [place] [facility] [address] [id number] [place] [address] 04 Sep, 2012 [facility] [place] [facility] [address] [id number] [place] [address] 03 Sep, 2012 [facility] [place] [facility] [address] [id number] [place] [address] Apr, [facility] [place] [facility] [address] [id number] [facility] [place] [address] Apr, [facility] [place] [facility] [address] [id number] [place] [address] Apr, [facility] [place] [facility] [address] [facility] [id number] [facility] [place] [address] Apr, [facility] [place] [facility] [address] [id number] [place] [address] Apr, [facility] [place] [facility] [address] [id number] [place] [address] Apr, [facility] [place] [facility] [address] [id number] [facility] [place] [address] Apr, [facility] [place] [facility] [address] [facility] [id number] [facility] [place] [address] Apr, [facility] [place] [facility] [address] [id number] [facility] [place] [address] Apr, [facility] [place] [facility] [address] [facility] [id number] [place] [address] Mar, [facility] [place] [facility] [address] [id number] [facility] [place] [address] Mar, [facility] [place] [facility] [address] [id number] [facility] [place] [address] Mar, [facility] [place] [facility] [address] [id number] [facility] [place] [address] Mar, [facility] [place] [facility] [address] [facility] [id number] [facility] [place] [address] Mar, [facility] [place] [facility] [address] [id number] [facility] [place] [address] Mar, [facility] [place] [facility] [address] [facility] [id number] [place] [address] Mar, [facility] [place] [facility] [address] [id number] [facility] [place] [address] Mar, [facility] [place] [facility] [address] [id number] [place] [address] Mar, [facility] [place] [facility] [address] [facility] [id number] [facility] [place] [address] Mar, [facility] [place] [facility] [address] [id number] [place] [address] Mar, [facility] [place] [facility] [address] [id number] [place] [address] Feb, [facility] [place] [facility] [address] [id number] [place] [address] Feb, [facility] [place] [facility] [address] [id number] [place] [address] Feb, [facility] [place] [facility] [address] [id number] [place] [address] Feb, [facility] [place] [facility] [address] [id number] [place] [address] Feb, [facility] [place] [facility] [address] [id number] [place] [address] Feb, [facility] [place] [facility] [address] [id number] [place] [address] Feb, [facility] [place] [facility] [address] [id number] [place] [address] Feb, [facility] [place] [facility] [address] [id number] [place] [address] Feb, [facility] [place] [facility] [address] [id number] [place] [address] January, [facility] [place] [facility] [address] [id number] [place] [address] January, [facility] [place] [facility] [address] [id number] [place] [address] January, [facility] [place] [facility] [address] [id number] [place] [address] January, [facility] [place] [facility] [address] [id number] [place] [address] January, [facility] [place] [facility] [address] [id number] [place] [address] January, [facility] [address] [id number] [place] [address] January, [facility] [place] [facility] [address] [id number] [place] [address] January, [facility] [address] [id number] [place] [address] January, [facility] [place] [facility] [address] [id number] [place] [address] January, [facility] [address] [id number] [place] [address] January, [facility] [place] [facility] [address] [id number] [place] [address] January, [facility] [address] [id number] [place] [address] January, [facility] [place] [facility] [address] [id number] [place] [address] January, [facility] [place] [facility] [address] [id number] [place] [address] January, [facility] [place] [facility] [address] [id number] [place] [address] January, [facility] [place] [facility] [address] [id number] [place] [address] January, [facility] [place] [facility] [address] [id number] [place] [address] January, [facility] [place] [facility] [address] [id number] [place] [address] January, [facility] [place] [facility] [address] [id number] [place] [address] January, [facility] [place] [facility] [address] [id number] [place] [address] January, [facility] [place] [facility] [address] [id number] [place] [address] January, [facility] [address] [facility] [id number] [facility] [place] [address] January, [facility] [place] [facility] [address] [facility] [id number] [place] [address] Dec, [facility] [place] [facility] [address] [facility] [id number] [facility] [place] [address] Dec, [facility] [place] [facility] [address] [id number] [facility] [place] [address] Dec, [facility] [place] [facility] [address] [facility] [id number] [facility] [place] [address] Dec, [facility] [place] [facility] [address] [id number] [facility] [place] [address] Dec, [facility] [place] [facility] [address] [id number] [facility] [place] [address] Nov, [facility] [place] [facility] [address] [id number] [facility] [place] [address] Oct, [facility] [place] [facility] [address] [id number] [facility] [place] [address] Oct, [facility] [place] [facility] [address] [id number] [place] [address] Oct, [facility] [place] [facility] [address] [id number] [place] [address] Oct, [facility] [place] [facility] [address] [id number] [place] [address] Oct, [facility] [place] [facility] [address] [id number] [facility] [place] [address] Sep, [facility] [place] [facility] [address] [id number] [place] [address] Sep, [facility] [place] [facility] [address] [id number] [place] [address] Sep, [facility] [place] [facility] [address] [id number] [place] [address] Aug, [facility] [place] [facility] [address] [id number] [place] [address] Aug, [facility] [place] [facility] [address] [id number] [place] [address] Aug, [facility] [place] [facility] [address] [id number] [place] [address] Aug, [facility] [place] [facility] [address] [id number] [place] [address] Jul, [facility] [place] [facility] [address] [id number] [place] [address] Jul, [facility] [place] [facility] [address] [id number] [place] [address] Jul, [facility] [place] [facility] [address] [id number] [place] [address] Jul, [facility] [place] [facility] [address] [id number] [place] [address] Jul, [facility] [place] [facility] [address] [id number] [place] [address] Jul, [facility] [place] [facility] [address] [id number] [place] [address] Jun, [facility] [place] [facility] [address] [id number] [place] [address] Jun, [facility] [place] [facility] [address] [id number] [place] [address] Jun, [facility] [place] [facility] [address] [id number] [place] [address] Jun, [facility] [place] [facility] [address] [id number] [place] [address] Jun, [facility] [place] [facility] [id number] [place] [address] Jun, [facility] [place] [facility] [address] [id number] [place] [address] Jun, [facility] [place] [facility] [address] [id number] [place] [address] Jun, [facility] [place] [facility] [address] [id number] [place] [address] Jun, [facility] [place] [facility] [address] [id number] [place] [address] Jun, [facility] [place] [facility] [address] [id number] [place] [address] May, 2011 [facility] [place] [facility] [address] [id number] [place] [address] 08 May, 2012 [facility] [place] [facility] [address] [id number] [place] [address] May, [facility] [place] [facility] [address] [id number] [place] [address] Apr, [facility] [place] [facility] [address] [id number] [place] [address] Apr, [facility] [place] [facility] [address] [id number] [place] [address] Apr, [facility] [address] [id number] [place] [address] Apr, [facility] [address] [id number] [place] [address] Apr, [facility] [address] [id number] [place] [address] Apr, [facility] [address] [id number] [place] [address] Apr, [facility] [address] [id number] [place] [address] Apr, [facility] [address] [id number] [place] [address] Apr, [facility] [address] [id number] [place] [address] Mar, [facility] [address] [id number] [place] [address] Mar, [facility] [address] [id number] [place] [address] Mar, [facility] [address] [id number] [place] [address] Mar, [facility] [address] [id number] [place] [address] Feb, [facility] [address] [id number] [place] [address] Feb, [facility] [address] [id number] [place] [address] Feb, [facility] [address] [id number] [place] [address] January, [facility] [address] [id number] [place] [address] January, [facility] [address] [id number] [place] [address] January, [facility] [address] [id number] [place] [address] January, [facility] [address] [id number] [place] [address] January, [facility] [address] [id number] [place] [address] Dec, [facility] [address] [id number] [place] [address] Dec, [facility] [address] [id number] [place] [address] Dec, [facility] [address] [id number] [place] [address] Oct, [facility] [address] [id number] [place] [address] Oct, [facility] [address] [id number] [place] [address] Oct, [facility] [address] [id number] [place] [address] Sep, [facility] [address] [id number] [place] [address] 18 Sep, 2011 [facility] [address] [id number] [place] [address] 07 Aug, 2011 [facility] [address] [id number] [place] [address] 08 Jul, 2011 [facility] [address] [id number] [place] [address] 08 Jul, 2011 [facility] [address] [id number] [place] [address] 12 Mar, 2011 [facility] [address] [id number] [place] [address] Aug, [facility] [address] [id number] [place] [address] 10 Jul, 2010 [facility] [address] [id number] [place] [address] Jul, [facility] [address] [id number] [place] [address] Jul, [facility] [address] [id number] [place] [address] Jul, [facility] [address] [id number] [place] [address] 14 Jun, 2010 [facility] [address] [id number] [place] [address] Jun, [facility] [address] [id number] [place] [address] Apr, [facility] [address] [id number] [place] [address] Aug, [facility] [address] [id number] [place] [address] 17 Jul, 2009 [facility] [address] [id number] [place] [address] 17 Jul, 2009 [facility] [address] [id number] [place] [address] Jul, [facility] [address] [id number] [place] [address] Jun, [facility] [address] [id number] [place] [address] May, [facility] [address] [id number] [place] [address] 14 Dec, 2008 [facility] [id number] [place] [address] Nov, [facility] [address] [id number] [place] [address] Oct, [facility] [id number] [place] [address] Aug, [facility] [address] [id number] [place] [address] Aug, [facility] [address] [id number] [place] [address] Jun, IMMUNIZATIONS No Known Immunizations SOCIAL HISTORY Never Assessed REASON FOR VISIT PLAN OF CARE VITAL SIGNS MEDICATIONS Unknown Medications RESULTS No Results PROCEDURES Procedure Date Ordered Result Body Site CHEST X-RAY February 15, 2014 INSTRUCTIONS MEDICATIONS ADMINISTERED No Known Medications [...] Hospitalization History [facility]- Right wrist injury 03/29/2018
--- OUTSIDE RECORDS SUMMARY | 2020-04-09 00:32 | XMS REPORT ---
Author Author Kateryna UMANZOR Organization [facility] Address [address] [place] [address] Care Team Providers Care Shoe Packer Name Role Phone ZENA UMANZOR Unavailable PROBLEMS Type Condition ICD9-CM Code HID44-IC Code Onset Dates Condition S tatus SNOMED Code Problem Irregular menses N92.6 Active 801 27195 Problem Migraine with aura and without status migrainosu s, not intractable G43.109 Active 2888986 Problem Uncontrolled type 2 diabetes mellitus with hyperglycemia E11.65 Active 513603057 Problem Morbid obesity due to excess calories E66.01 Active 023384489 Problem RLS (restless legs syndrome) G25.81 A ctive 86045352 Problem Morbid obesity E66.01 Active 62835 6002 ALLERGIES No Information ENCOUNTERS Encounter Location Date Diagnosis [place] [address] [address] 16 Sep, 2019 [place] [address] [address] 14 Sep, 2019 [place] [address] [address] 14 Sep, 2019 [place] [address] [address] 13 Sep, 2019 [place] [address] [address] 10 Sep, 2019 Pneumonia of left lower lobe due to infe ctious organism J18.9 and Migraine with aura and without status migrainosus, not intractable G43.109 [facility] [address] [address] 10 Sep, 2019 [facility] [address] [address] 10 Sep, 2019 [facility] [address] [address] 08 Sep, [facility] [address] [address] Sep, [facility] [address] [address] Sep, Pneumonia of left lower lobe due to infe ctious organism J18.9 and Migraine with aura and without status migrainosus, not intractable G43.109 [facility] [address] [address] Aug, Irregular menses N92.6 ; Well woman exam Z01.419 ; Pelvic cramping R10.2 and Left breast lump N63.20 [place] [address] [address] Aug, [place] [address] [address] Aug, Well woman exam Z01.419 ; Left breast nenita mp N63.20 ; Irregular menses N92.6 ; Encounter for immunization Z23 ; Pelvic cramping R10.2 and Screening for cervical cancer Z12.4 [place] [address] [address] Aug, [facility] [address] [address] Aug, [facility] [address] [address] Aug, [facility] [address] [address] Jul, [facility] [address] [address] Jun, [facility] [address] [address] Jun, [facility] [address] [address] Jun, [place] [address] [address] Jun, BMI 50.0-59.9, adult Z68.43 [place] [address] [address] Jun, [facility] [address] [facility] [id number] [address] [place] [address] May, Acute non-recurrent sinusiti s, unspecified location J01.90 ; Diarrhea, unspecified R19.7 ; Vomiting, unspecified R11.10 and Morbid obesity E66.01 [place] [address] [address] Apr, [place] [address] [address] Apr, Anemia due to other cause, not classifie d D64.89 and D-dimer, elevated R79.89 [place] [address] [address] Apr, [place] [address] [address] Apr, [place] [address] [address] Mar, Anemia due to other cause, not classifie d D64.89 and D-dimer, elevated R79.89 [place] [address] [address] Mar, Leg edema, right R60.0 ; High risk medic ation use Z79.899 and Morbid obesity E66.01 [place] [address] [address] Mar, BMI 50.0-59.9, adult Z68.43 [place] [address] [address] Mar, [place] [address] [address] January, Uncontrolled type 2 diabetes mellitus wi th hyperglycemia E11.65 ; RLS (restless legs syndrome) G25.81 and Morbid obesity E66.01 [place] [address] [address] 15 Oct, 2018 Lipoma of right lower extremity D17.23 [facility] [address] [address] Oct, Lipoma of right lower extremity D17.23 [facility] [address] [address] Sep, [facility] [address] [address] Sep, [facility] [address] [address] Sep, [place] [address] [address] Sep, [facility] [address] [address] Sep, [facility] [address] [address] Aug, Uncontrolled type 2 diabetes mellitus wi th hyperglycemia E11.65 ; Morbid obesity due to excess calories E66.01 ; Lipoma of torso D17.1 and BMI 50.0-59.9, adult Z68.43 [place] [address] [address] Jun, Encounter for immunization Z23 [place] [address] [address] Jul, [place] [address] [address] Jun, Encounter for immunization Z23 [facility] [address] [address] May, [place] [address] [address] Jun, Encounter for immunization Z23 [facility] [address] [id number] [place] [address] May, [facility] [address] [id number] [place] [address] May, [facility] [address] [id number] [place] [address] Apr, [facility] [address] [id number] [place] [address] Feb, [facility] [address] [id number] [place] [address] Feb, [facility] [address] [id number] [place] [address] Feb, [facility] [address] [id number] [place] [address] January, [facility] [address] [id number] [place] [address] January, [facility] [address] [id number] [place] [address] Dec, [facility] [address] [place] [id number] [place] [address] Dec, [facility] [address] [id number] [place] [address] Nov, [facility] [address] [id number] [place] [address] Nov, [facility] [address] [id number] [place] [address] Nov, [facility] [address] [id number] [place] [address] Nov, [facility] [address] [id number] [place] [address] Nov, [facility] [address] [id number] [place] [address] Nov, [facility] [address] [id number] [place] [address] Nov, [facility] [address] [facility] [id number] [place] [address] Oct, [facility] [address] [id number] [place] [address] Oct, [facility] [address] [id number] [place] [address] Oct, [facility] [address] [id number] [place] [address] Oct, [facility] [address] [id number] [place] [address] Oct, [facility] [address] [id number] [place] [address] Sep, [facility] [address] [id number] [place] [address] Sep, [facility] [address] [id number] [place] [address] Sep, [facility] [address] [id number] [place] [address] Sep, [facility] [address] [id number] [place] [address] Sep, [facility] [address] [id number] [place] [address] Sep, [facility] [address] [id number] [place] [address] Sep, [facility] [address] [id number] [place] [address] Sep, [facility] [address] [id number] [place] [address] Sep, [facility] [address] [id number] [place] [address] Sep, [facility] [address] [id number] [place] [address] Aug, [facility] [address] [id number] [place] [address] Aug, [facility] [address] [id number] [place] [address] Aug, [facility] [address] [id number] [place] [address] Aug, [facility] [address] [id number] [place] [address] Aug, [facility] [address] [id number] [place] [address] Aug, [facility] [address] [id number] [place] [address] Aug, [facility] [address] [id number] [place] [address] Aug, [facility] [address] [id number] [place] [address] Aug, [facility] [address] [id number] [place] [address] Aug, [facility] [address] [id number] [place] [address] Aug, [facility] [address] [id number] [place] [address] Aug, [facility] [address] [id number] [place] [address] Aug, [facility] [address] [id number] [place] [address] 18 Aug, 2014 [facility] [address] [id number] [place] [address] 17 Aug, 2014 [facility] [address] [id number] [place] [address] 17 Aug, 2014 [facility] [address] [id number] [place] [address] 16 Aug, 2014 [facility] [address] [id number] [place] [address] 16 Aug, 2014 [facility] [address] [facility] [id number] [place] [address] Aug, [facility] [address] [facility] [id number] [place] [address] Aug, [facility] [address] [id number] [place] [address] Aug, [facility] [address] [id number] [place] [address] Aug, [facility] [address] [id number] [place] [address] Aug, [facility] [address] [id number] [place] [address] Aug, [facility] [address] [id number] [place] [address] Jul, [facility] [address] [id number] [place] [address] Jul, [facility] [address] [id number] [place] [address] Jun, [facility] [address] [id number] [place] [address] 27 Jun, 2014 [facility] [address] [id number] [place] [address] 17 Jun, 2014 [facility] [address] [id number] [place] [address] 17 Jun, 2014 [facility] [address] [id number] [place] [address] 15 Jun, 2014 [facility] [address] [id number] [place] [address] 15 Jun, 2014 [facility] [address] [id number] [place] [address] 14 Jun, 2014 [facility] [address] [id number] [place] [address] 14 Jun, 2014 [facility] [address] [facility] [id number] [place] [address] Jun, [facility] [address] [facility] [id number] [place] [address] Jun, [facility] [address] [facility] [id number] [place] [address] Jun, [facility] [address] [id number] [place] [address] Jun, [facility] [address] [facility] [id number] [place] [address] Jun, [facility] [address] [facility] [id number] [place] [address] Jun, [facility] [address] [id number] [place] [address] May, [facility] [address] [id number] [place] [address] May, [facility] [address] [id number] [place] [address] May, [facility] [address] [facility] [id number] [place] [address] May, [facility] [address] [id number] [place] [address] May, [facility] [address] [id number] [place] [address] May, [facility] [address] [id number] [place] [address] May, 2013 [facility] [address] [facility] [id number] [place] [address] May, [facility] [address] [id number] [place] [address] Apr, [facility] [address] [id number] [place] [address] Apr, [facility] [address] [id number] [place] [address] Apr, [facility] [address] [facility] [id number] [place] [address] Apr, [facility] [address] [facility] [id number] [place] [address] Apr, [facility] [address] [id number] [place] [address] Apr, [facility] [address] [id number] [place] [address] Apr, [facility] [address] [facility] [id number] [place] [address] Apr, [facility] [address] [id number] [place] [address] Apr, [facility] [address] [id number] [place] [address] Mar, [facility] [address] [id number] [place] [address] Mar, [facility] [address] [id number] [place] [address] Mar, [facility] [address] [id number] [place] [address] Feb, [facility] [address] [id number] [place] [address] Feb, [facility] [address] [id number] [place] [address] Feb, [facility] [address] [id number] [place] [address] Feb, [facility] [address] [id number] [place] [address] Feb, [facility] [address] [id number] [place] [address] Feb, [facility] [address] [id number] [place] [address] 16 Feb, 2014 [facility] [address] [id number] [place] [address] Feb, [facility] [address] [facility] [id number] [facility] [place] [address] Feb, [facility] [address] [facility] [id number] [place] [address] Feb, [facility] [address] [id number] [place] [address] Feb, [facility] [address] [facility] [id number] [place] [address] Feb, [facility] [address] [facility] [id number] [place] [address] Feb, [facility] [address] [id number] [place] [address] Feb, [facility] [address] [id number] [place] [address] Feb, [facility] [address] [id number] [place] [address] Feb, [facility] [address] [facility] [id number] [place] [address] January, [facility] [address] [id number] [place] [address] January, [facility] [address] [id number] [place] [address] January, [facility] [address] [id number] [place] [address] January, [facility] [address] [facility] [id number] [place] [address] January, [facility] [address] [id number] [place] [address] January, [facility] [address] [facility] [id number] [place] [address] January, [facility] [address] [id number] [place] [address] January, [facility] [address] [facility] [id number] [place] [address] January, [facility] [address] [id number] [place] [address] January, [facility] [address] [facility] [id number] [place] [address] January, [facility] [address] [id number] [place] [address] January, [facility] [address] [facility] [id number] [place] [address] January, [facility] [address] [id number] [place] [address] January, [facility] [address] [id number] [place] [address] January, [facility] [address] [id number] [place] [address] January, [facility] [address] [id number] [place] [address] January, [facility] [address] [facility] [id number] [place] [address] January, [facility] [address] [id number] [place] [address] January, [facility] [address] [id number] [place] [address] January, [facility] [address] [id number] [place] [address] January, [facility] [address] [id number] [place] [address] January, [facility] [address] [id number] [place] [address] January, [facility] [address] [id number] [place] [address] January, [facility] [address] [id number] [place] [address] January, [facility] [address] [id number] [place] [address] January, [facility] [address] [id number] [place] [address] Dec, [facility] [address] [id number] [place] [address] Dec, [facility] [address] [id number] [place] [address] Dec, [facility] [address] [facility] [id number] [place] [address] Dec, [facility] [address] [id number] [place] [address] Dec, [facility] [address] [id number] [place] [address] Dec, [facility] [address] [id number] [place] [address] Dec, [facility] [address] [id number] [place] [address] Dec, [facility] [address] [id number] [place] [address] Dec, [facility] [address] [id number] [place] [address] Dec, [facility] [address] [id number] [place] [address] Dec, [facility] [address] [id number] [place] [address] Dec, [facility] [address] [id number] [place] [address] Dec, [facility] [place] [facility] [address] [id number] [place] [id number] Dec, [facility] [place] [facility] [address] [id number] [place] [id number] Dec, [facility] [place] [facility] [address] [id number] [place] [id number] Dec, [facility] [place] [facility] [address] [facility] [id number] [place] [address] Dec, [facility] [place] [facility] [address] [facility] [id number] [place] [address] Dec, [facility] [place] [facility] [address] [id number] [place] [address] Dec, [facility] [place] [facility] [address] [facility] [id number] [place] [address] Dec, [facility] [place] [facility] [address] [facility] [id number] [place] [address] Dec, [facility] [place] [facility] [address] [facility] [id number] [place] [address] Dec, [facility] [place] [facility] [address] [id number] [place] [address] Nov, [facility] [place] [facility] [address] [id number] [place] [id number] Nov, [facility] [place] [facility] [address] [facility] [id number] [place] [address] Nov, [facility] [place] [facility] [address] [id number] [place] [id number] Nov, [facility] [place] [facility] [address] [id number] [place] [address] Nov, [facility] [place] [facility] [address] [id number] [place] [address] Nov, [facility] [place] [facility] [address] [facility] [id number] [place] [address] Nov, [facility] [place] [facility] [address] [id number] [place] [address] Nov, [facility] [place] [facility] [address] [facility] [id number] [place] [address] Nov, [facility] [place] [facility] [address] [id number] [place] [address] Nov, [facility] [place] [facility] [address] [id number] [place] [id number] 18 Nov, 2013 [facility] [place] [facility] [address] [facility] [id number] [place] [id number] Nov, [facility] [place] [facility] [address] [id number] [place] [address] Nov, [facility] [place] [facility] [address] [id number] [place] [address] Nov, [facility] [place] [facility] [address] [id number] [place] [address] Nov, [facility] [place] [facility] [address] [id number] [place] [address] Nov, [facility] [place] [facility] [address] [id number] [place] [address] Oct, [facility] [place] [facility] [address] [id number] [place] [address] Oct, [facility] [place] [facility] [address] [id number] [place] [address] Oct, [facility] [place] [facility] [address] [id number] [place] [address] Oct, [facility] [place] [facility] [address] [id number] [place] [id number] 24 Oct, 2013 [facility] [place] [facility] [address] [id number] [place] [address] Oct, [facility] [place] [facility] [address] [id number] [place] [address] Oct, [facility] [place] [facility] [address] [id number] [place] [address] Oct, [facility] [place] [facility] [address] [id number] [place] [address] Oct, [facility] [place] [facility] [address] [id number] [place] [address] 17 Oct, 2013 [facility] [place] [facility] [address] [id number] [place] [address] 14 Oct, 2013 [facility] [place] [facility] [address] [facility] [id number] [place] [address] Oct, [facility] [place] [facility] [address] [facility] [id number] [place] [address] Oct, [facility] [place] [facility] [address] [id number] [place] [address] Oct, [facility] [place] [facility] [address] [facility] [id number] [place] [address] Oct, [facility] [place] [facility] [address] [facility] [id number] [place] [address] Sep, [facility] [place] [facility] [address] [id number] [place] [address] Sep, [facility] [place] [facility] [address] [id number] [place] [address] Sep, [facility] [place] [facility] [address] [id number] [place] [address] Sep, [facility] [place] [facility] [address] [id number] [place] [address] Sep, [facility] [place] [facility] [address] [id number] [place] [address] Sep, [facility] [place] [facility] [address] [id number] [place] [address] Sep, [facility] [place] [facility] [address] [id number] [place] [address] Sep, [facility] [place] [facility] [address] [facility] [id number] [place] [address] Sep, [facility] [place] [facility] [address] [id number] [place] [address] Sep, [facility] [place] [facility] [address] [id number] [place] [address] Sep, [facility] [place] [facility] [address] [id number] [place] [address] Sep, [facility] [place] [facility] [address] [id number] [place] [address] Sep, [facility] [place] [facility] [address] [id number] [place] [address] 30 Aug, 2013 [facility] [place] [facility] [address] [id number] [place] [address] 30 Aug, 2013 [facility] [place] [facility] [address] [id number] [place] [address] Aug, [facility] [place] [facility] [address] [id number] [place] [address] 24 Aug, 2013 [facility] [place] [facility] [address] [id number] [place] [address] 17 Aug, 2013 [facility] [place] [facility] [address] [id number] [place] [address] 17 Aug, 2013 [facility] [place] [facility] [address] [id number] [place] [address] 16 Aug, 2013 [facility] [place] [facility] [address] [id number] [place] [address] 16 Aug, 2013 [facility] [place] [facility] [address] [id number] [place] [address] Aug, [facility] [place] [facility] [address] [id number] [place] [address] 12 Aug, 2013 [facility] [place] [facility] [address] [id number] [place] [address] 10 Aug, 2013 [facility] [place] [facility] [address] [id number] [place] [address] 10 Aug, 2013 [facility] [place] [facility] [address] [id number] [place] [address] Aug, [facility] [place] [facility] [address] [id number] [place] [address] Aug, [facility] [place] [facility] [address] [id number] [place] [address] Jul, [facility] [place] [facility] [address] [id number] [place] [address] 19 Jul, 2013 [facility] [place] [facility] [address] [id number] [place] [address] 18 Jul, 2013 [facility] [place] [facility] [address] [id number] [place] [address] 18 Jul, 2013 [facility] [place] [facility] [address] [id number] [place] [address] 14 Jul, 2012 [facility] [place] [facility] [address] [id number] [place] [address] 14 Jul, 2013 [facility] [place] [facility] [address] [id number] [place] [address] 14 Jul, 2013 [facility] [place] [facility] [address] [id number] [place] [address] 14 Jul, 2013 [facility] [place] [facility] [address] [id number] [place] [address] 07 Jul, 2013 [facility] [place] [facility] [address] [id number] [place] [address] 07 Jul, 2013 [facility] [place] [facility] [address] [id number] [place] [address] 06 Jul, 2013 [facility] [place] [facility] [address] [id number] [place] [address] 06 Jul, 2013 [facility] [place] [facility] [address] [id number] [place] [address] 05 Jul, 2013 [facility] [place] [facility] [address] [id number] [place] [address] 05 Jul, 2013 [facility] [place] [facility] [address] [id number] [place] [address] Jun, [facility] [place] [facility] [address] [id number] [place] [address] 23 Jun, 2013 [facility] [place] [facility] [address] [id number] [place] [address] 15 Jun, 2013 [facility] [place] [facility] [address] [id number] [place] [address] 15 Jun, 2013 [facility] [place] [facility] [address] [id number] [place] [address] 14 Jun, 2012 [facility] [place] [facility] [address] [id number] [place] [id number] 24 Sep, 2012 [facility] [place] [facility] [address] [id number] [place] [address] 20 May, 2012 [facility] [place] [facility] [address] [id number] [place] [address] 20 Sep, 2012 [facility] [place] [facility] [address] [id number] [place] [id number] 20 Sep, 2012 [facility] [place] [facility] [address] [id number] [place] [address] 19 May, 2012 [facility] [place] [facility] [address] [id number] [place] [address] 13 May, 2012 [facility] [place] [facility] [address] [id number] [place] [address] 12 May, 2012 [facility] [place] [facility] [address] [id number] [place] [address] 12 May, 2012 [facility] [place] [facility] [address] [id number] [place] [id number] 11 May, 2012 [facility] [place] [facility] [address] [id number] [place] [id number] 11 May, 2012 [facility] [place] [facility] [address] [id number] [place] [address] 11 May, 2012 [facility] [place] [facility] [address] [id number] [place] [id number] 09 Sep, 2012 [facility] [place] [facility] [address] [id number] [place] [id number] 05 Sep, 2012 [facility] [place] [facility] [address] [id number] [place] [address] 04 Sep, 2012 [facility] [place] [facility] [address] [id number] [place] [address] 03 May, 2012 [facility] [place] [facility] [address] [id number] [place] [address] 27 Apr, 2013 [facility] [place] [facility] [address] [id number] [place] [address] Apr, [facility] [place] [facility] [address] [id number] [place] [address] Apr, [facility] [place] [facility] [address] [id number] [place] [address] Apr, [facility] [place] [facility] [address] [id number] [place] [address] Apr, [facility] [place] [facility] [address] [facility] [id number] [place] [address] Apr, [facility] [place] [facility] [address] [id number] [place] [address] Apr, [facility] [place] [facility] [address] [id number] [place] [address] Apr, [facility] [place] [facility] [address] [id number] [place] [address] Apr, [facility] [place] [facility] [address] [id number] [place] [address] Mar, [facility] [place] [facility] [address] [id number] [place] [address] Mar, [facility] [place] [facility] [address] [id number] [place] [address] Mar, [facility] [place] [facility] [address] [id number] [place] [address] Mar, [facility] [place] [facility] [address] [id number] [place] [address] Mar, [facility] [place] [facility] [address] [facility] [id number] [place] [address] Mar, [facility] [place] [facility] [address] [id number] [place] [address] Mar, [facility] [place] [facility] [address] [id number] [place] [address] Mar, [facility] [place] [facility] [address] [id number] [place] [address] Mar, [facility] [place] [facility] [address] [facility] [id number] [place] [address] Mar, [facility] [place] [facility] [address] [facility] [id number] [facility] [address] Mar, [facility] [place] [facility] [address] [id number] [place] [address] Feb, [facility] [place] [facility] [address] [id number] [place] [address] Feb, [facility] [place] [facility] [address] [facility] [id number] [place] [address] Feb, [facility] [place] [facility] [address] [id number] [place] [address] Feb, [facility] [place] [facility] [address] [id number] [place] [address] Feb, [facility] [place] [facility] [address] [id number] [place] [address] Feb, [facility] [place] [facility] [address] [id number] [place] [address] Feb, [facility] [place] [facility] [address] [id number] [place] [address] Feb, [facility] [place] [facility] [address] [id number] [place] [address] Feb, [facility] [place] [facility] [address] [id number] [place] [address] January, [facility] [place] [facility] [address] [id number] [place] [address] January, [facility] [place] [facility] [address] [id number] [place] [address] January, [facility] [place] [facility] [address] [id number] [place] [address] January, [facility] [place] [facility] [address] [id number] [place] [address] January, [facility] [place] [facility] [address] [id number] [place] [address] January, [facility] [address] [id number] [place] [address] January, [facility] [place] [facility] [address] [id number] [place] [address] January, [facility] [place] [facility] [address] [id number] [place] [address] January, [facility] [place] [facility] [address] [id number] [place] [address] January, [facility] [place] [facility] [address] [id number] [place] [address] January, [facility] [place] [facility] [address] [id number] [place] [address] January, [facility] [place] [facility] [address] [id number] [place] [address] January, [facility] [place] [facility] [address] [id number] [place] [address] January, [facility] [place] [facility] [address] [id number] [place] [address] January, [facility] [place] [facility] [address] [id number] [place] [address] January, [facility] [place] [facility] [address] [id number] [place] [address] January, [facility] [place] [facility] [address] [id number] [place] [address] January, [facility] [place] [facility] [address] [id number] [place] [address] January, [facility] [place] [facility] [address] [id number] [place] [address] January, [facility] [place] [facility] [address] [id number] [place] [address] January, [facility] [place] [facility] [address] [id number] [place] [address] January, [facility] [place] [facility] [address] [id number] [place] [address] January, [facility] [address] [id number] [place] [address] Dec, [facility] [place] [facility] [address] [id number] [place] [address] Dec, [facility] [address] [id number] [place] [address] Dec, [facility] [place] [facility] [address] [id number] [place] [address] Dec, [facility] [place] [facility] [address] [id number] [place] [address] Dec, [facility] [place] [facility] [address] [id number] [place] [address] Nov[facility] [address] [id number] [place] [address] Oct, [facility] [place] [facility] [address] [id number] [place] [address] Oct, [facility] [place] [facility] [address] [id number] [place] [address] Oct, [facility] [place] [facility] [address] [id number] [place] [address] Oct, [facility] [place] [facility] [address] [id number] [place] [address] Oct, [facility] [place] [facility] [address] [id number] [place] [address] Sep, [facility] [place] [facility] [address] [id number] [place] [address] Sep, [facility] [place] [facility] [address] [id number] [place] [address] Sep, [facility] [place] [facility] [address] [id number] [place] [address] Aug, [facility] [place] [facility] [address] [id number] [place] [address] Aug, [facility] [place] [facility] [address] [id number] [place] [address] Aug, [facility] [place] [facility] [address] [id number] [place] [address] Aug, [facility] [place] [facility] [address] [id number] [place] [address] Jul, [facility] [place] [facility] [address] [id number] [place] [address] Jul, [facility] [place] [facility] [address] [id number] [place] [address] Jul, [facility] [place] [facility] [address] [id number] [place] [address] Jul, [facility] [place] [facility] [address] [id number] [place] [address] Jul, [facility] [place] [facility] [address] [id number] [place] [address] Jul, [facility] [place] [facility] [address] [id number] [place] [address] Jun, [facility] [place] [facility] [address] [id number] [place] [address] Jun, [facility] [place] [facility] [address] [id number] [place] [address] Jun, [facility] [place] [facility] [address] [id number] [place] [address] Jun, [facility] [place] [facility] [address] [id number] [place] [address] Jun, [facility] [place] [facility] [address] [id number] [place] [address] Jun, [facility] [place] [facility] [address] [id number] [place] [address] Jun, [facility] [place] [facility] [address] [id number] [place] [address] Jun, [facility] [place] [facility] [address] [facility] [id number] [facility] [address] Jun, [facility] [place] [facility] [address] [id number] [place] [address] Jun, [facility] [place] [facility] [address] [facility] [id number] [place] [address] May, [facility] [place] [facility] [address] [id number] [place] [address] 08 May, 2012 [facility] [place] [facility] [address] [id number] [place] [address] May, [facility] [place] [facility] [address] [id number] [place] [address] Apr, [facility] [place] [facility] [address] [id number] [place] [address] Apr, [facility] [place] [facility] [address] [id number] [place] [address] Apr, [facility] [place] [facility] [address] [id number] [place] [address] Apr, [facility] [place] [facility] [address] [id number] [place] [address] Apr, [facility] [place] [facility] [address] [id number] [place] [address] Apr, [facility] [place] [facility] [address] [id number] [place] [address] Apr, [facility] [place] [facility] [address] [id number] [place] [address] Apr, [facility] [place] [facility] [address] [id number] [place] [address] Apr, [facility] [place] [facility] [address] [id number] [place] [address] Mar, [facility] [place] [facility] [address] [id number] [place] [address] Mar, [facility] [place] [facility] [address] [id number] [place] [address] Mar, [facility] [place] [facility] [address] [id number] [place] [address] Mar, [facility] [place] [facility] [address] [id number] [place] [address] Feb, [facility] [place] [facility] [address] [id number] [place] [address] Feb, [facility] [place] [facility] [address] [id number] [place] [address] Feb, [facility] [place] [facility] [address] [id number] [place] [address] January, [facility] [place] [facility] [address] [id number] [place] [address] January, [facility] [place] [facility] [address] [id number] [place] [address] January, [facility] [place] [facility] [address] [id number] [place] [address] January, [facility] [place] [facility] [address] [id number] [place] [address] January, [facility] [place] [facility] [address] [id number] [place] [address] Dec, [facility] [place] [facility] [address] [id number] [place] [address] Dec, [facility] [place] [facility] [address] [id number] [place] [address] Dec, [facility] [place] [facility] [address] [id number] [place] [address] Oct, [facility] [place] [facility] [address] [id number] [place] [address] Oct, [facility] [place] [facility] [address] [id number] [place] [address] Oct, [facility] [place] [facility] [address] [id number] [place] [address] Sep, [facility] [place] [facility] [address] [id number] [place] [address] 18 Sep, 2011 [facility] [place] [facility] [address] [id number] [place] [address] Aug, [facility] [place] [facility] [address] [id number] [place] [address] Jul, [facility] [place] [facility] [address] [id number] [place] [address] 08 Jul, 2011 [facility] [place] [facility] [address] [id number] [place] [address] Mar, [facility] [place] [facility] [address] [id number] [place] [address] Aug, [facility] [place] [facility] [address] [id number] [place] [address] Jul, [facility] [place] [facility] [address] [id number] [place] [address] Jul, [facility] [place] [facility] [address] [id number] [place] [address] Jul, [facility] [place] [facility] [address] [id number] [place] [address] Jul, [facility] [place] [facility] [address] [id number] [place] [address] 14 Jun, 2010 [facility] [place] [facility] [address] [id number] [place] [address] Jun, [facility] [place] [facility] [address] [id number] [place] [address] Apr, [facility] [place] [facility] [address] [id number] [place] [address] Aug, [facility] [place] [facility] [address] [id number] [place] [address] 17 Jul, 2009 [facility] [place] [facility] [address] [id number] [place] [address] Jul, [facility] [place] [facility] [address] [id number] [place] [address] 13 Jul, 2009 [facility] [place] [facility] [address] [id number] [place] [address] Jun, [facility] [address] [id number] [place] [address] May, [facility] [address] [id number] [place] [address] [address], [address] [facility] [address] [id number] [place] [address] Nov, [facility] [address] [id number] [place] [address] Oct, [facility] [id number] [place] [address] Aug, [facility] [address] [id number] [place] [address] Aug, [facility] [address] [id number] [place] [address] Jun, IMMUNIZATIONS No Known Immunizations SOCIAL HISTORY [...] s 04/2012 Hospitalization History [facility] [place]- Right wrist injury 03/29/2018
--- OUTSIDE RECORDS SUMMARY | 2020-04-09 00:32 | XMS REPORT ---
Author Author Kateryna LAURENT Organization [facility] Address [address] [place] [address] Care Team Providers Care Clay Machine Operator Name Role Phone YAMILETH LAURENT Unavailable PROBLEMS Type Condition ICD9-CM Code XYU06-NE Code Onset Dates Condition S tatus SNOMED Code Problem Irregular menses N92.6 Active 801 97363 Problem Migraine with aura and without status migrainosu s, not intractable G43.109 Active 9907508 Problem Uncontrolled type 2 diabetes mellitus with hyperglycemia E11.65 Active 985704582 Problem Morbid obesity due to excess calories E66.01 Active 690106393 Problem RLS (restless legs syndrome) G25.81 A ctive 51899172 Problem Morbid obesity E66.01 Active 54839 6002 ALLERGIES No Information ENCOUNTERS Encounter Location Date Diagnosis [place] [address] [address] 16 Sep, 2019 [place] [address] [address] 14 Sep, 2019 [place] [address] [address] 14 Sep, 2019 [place] [address] [address] 13 Sep, 2019 [place] [address] [address] 10 Sep, 2019 Pneumonia of left lower lobe due to infe ctious organism J18.9 and Migraine with aura and without status migrainosus, not intractable G43.109 [facility] [address] [address] 10 Sep, 2019 [facility] [address] [address] 10 Sep, 2019 [place] [address] [address] Sep, [facility] [address] [address] Sep, [facility] [address] [address] Sep, Pneumonia of left lower lobe due to infe ctious organism J18.9 and Migraine with aura and without status migrainosus, not intractable G43.109 [place] [address] [address] Aug, Irregular menses N92.6 ; Well woman exam Z01.419 ; Pelvic cramping R10.2 and Left breast lump N63.20 [place] [address] [address] Aug, [place] [address] [address] Aug, Well woman exam Z01.419 ; Left breast nenita mp N63.20 ; Irregular menses N92.6 ; Encounter for immunization Z23 ; Pelvic cramping R10.2 and Screening for cervical cancer Z12.4 [place] [address] [address] Aug, [place] [address] [address] Aug, [place] [address] [address] Aug, [place] [address] [address] Jul, [place] [address] [address] Jun, [place] [address] [address] Jun, [place] [address] [address] Jun, [facility] [address] [address] Jun, BMI 50.0-59.9, adult Z68.43 [place] [address] [address] Jun, [facility] [address] [facility] [id number] [address] [place] [address] May, Acute non-recurrent sinusiti s, unspecified location J01.90 ; Diarrhea, unspecified R19.7 ; Vomiting, unspecified R11.10 and Morbid obesity E66.01 [place] [address] [address] Apr, [place] [address] [address] Apr, Anemia due to other cause, not classifie d D64.89 and D-dimer, elevated R79.89 [place] [address] [address] Apr, [place] [address] [address] Apr, [place] [address] [address] Mar, Anemia due to other cause, not classifie d D64.89 and D-dimer, elevated R79.89 [place] [address] [address] Mar, Leg edema, right R60.0 ; High risk medic ation use Z79.899 and Morbid obesity E66.01 [place] [address] [address] Mar, BMI 50.0-59.9, adult Z68.43 [place] [address] [address] Mar, [place] [address] [address] January, Uncontrolled type 2 diabetes mellitus wi th hyperglycemia E11.65 ; RLS (restless legs syndrome) G25.81 and Morbid obesity E66.01 [place] [address] [address] 15 Oct, 2018 Lipoma of right lower extremity D17.23 [facility] [address] [address] Oct, Lipoma of right lower extremity D17.23 [facility] [address] [address] Sep, [place] [address] [address] Sep, [facility] [address] [address] Sep, [place] [address] [address] Sep, [facility] [address] [address] Sep, [facility] [address] [address] Aug, Uncontrolled type 2 diabetes mellitus wi th hyperglycemia E11.65 ; Morbid obesity due to excess calories E66.01 ; Lipoma of torso D17.1 and BMI 50.0-59.9, adult Z68.43 [place] [address] [address] Jun, Encounter for immunization Z23 [place] [address] [address] Jul, [place] [address] [address] Jun, Encounter for immunization Z23 [facility] [address] [address] May, [facility] [address] [address] Jun, Encounter for immunization Z23 [facility] [place] [facility] [address] [facility] [id number] [place] [address] May, [facility] [place] [facility] [address] [id number] [place] [address] May, [facility] [place] [facility] [address] [id number] [place] [address] Apr, [facility] [place] [facility] [address] [id number] [place] [address] Feb, [facility] [place] [facility] [address] [id number] [place] [address] Feb, [facility] [place] [facility] [address] [id number] [place] [address] Feb, [facility] [place] [facility] [address] [place] [id number] [place] [address] January, [facility] [place] [facility] [address] [place] [id number] [place] [address] January, [facility] [place] [facility] [address] [id number] [place] [address] Dec, [facility] [place] [facility] [address] [place] [id number] [place] [address] Dec, [facility] [place] [facility] [address] [place] [id number] [place] [address] Nov, [facility] [place] [facility] [address] [place] [id number] [place] [address] Nov, [facility] [place] [facility] [address] [id number] [place] [address] Nov, [facility] [place] [facility] [address] [place] [id number] [place] [address] Nov, [facility] [place] [facility] [id number] [place] [address] Nov, [facility] [place] [facility] [address] [place] [id number] [place] [address] Nov, [facility] [place] [facility] [id number] [place] [address] Nov, [facility] [place] [facility] [address] [facility] [id number] [place] [address] Oct, [facility] [place] [facility] [address] [facility] [id number] [place] [address] Oct, [facility] [place] [facility] [id number] [place] [address] Oct, [facility] [place] [facility] [id number] [place] [address] Oct, [facility] [place] [facility] [id number] [place] [address] Oct, [facility] [place] [facility] [id number] [place] [address] Sep, [facility] [place] [facility] [address] [id number] [place] [address] Sep, [facility] [place] [facility] [id number] [place] [address] Sep, [facility] [place] [facility] [id number] [place] [address] Sep, [facility] [place] [facility] [id number] [place] [address] Sep, [facility] [place] [facility] [id number] [place] [address] Sep, [facility] [place] [facility] [id number] [place] [address] Sep, [facility] [place] [facility] [id number] [place] [address] Sep, [facility] [place] [facility] [id number] [place] [address] Sep, [facility] [place] [facility] [id number] [place] [address] Sep, [facility] [place] [facility] [id number] [place] [address] Aug, [facility] [place] [facility] [address] [facility] [id number] [place] [address] Aug, [facility] [place] [facility] [address] [facility] [id number] [place] [address] Aug, [facility] [place] [facility] [address] [id number] [place] [address] Aug, [facility] [place] [facility] [id number] [place] [address] Aug, [facility] [place] [facility] [address] [facility] [id number] [place] [address] Aug, [facility] [place] [facility] [id number] [place] [address] Aug, [facility] [place] [facility] [id number] [place] [address] Aug, [facility] [place] [facility] [id number] [place] [address] Aug, [facility] [place] [facility] [id number] [place] [address] Aug, [facility] [place] [facility] [id number] [place] [address] Aug, [facility] [place] [facility] [id number] [place] [address] Aug, [facility] [place] [facility] [id number] [place] [address] 18 Aug, 2014 [facility] [place] [facility] [id number] [place] [address] 18 Aug, 2014 [facility] [place] [facility] [id number] [place] [address] 17 Aug, 2014 [facility] [place] [facility] [id number] [place] [address] 17 Aug, 2014 [facility] [place] [facility] [id number] [place] [address] 16 Aug, 2014 [facility] [place] [facility] [id number] [place] [address] 16 Aug, 2014 [facility] [place] [facility] [id number] [place] [address] Aug, [facility] [place] [facility] [address] [id number] [place] [address] Aug, [facility] [place] [facility] [id number] [place] [address] 08 Aug, 2014 [facility] [place] [facility] [id number] [place] [address] 08 Aug, 2014 [facility] [place] [facility] [id number] [place] [address] Aug, [facility] [place] [facility] [id number] [place] [address] Aug, [facility] [place] [facility] [id number] [place] [address] Jul, [facility] [place] [facility] [id number] [place] [address] Jul, [facility] [place] [facility] [id number] [place] [address] Jun, [facility] [place] [facility] [id number] [place] [address] 27 Jun, 2014 [facility] [place] [facility] [id number] [place] [address] 17 Jun, 2014 [facility] [place] [facility] [id number] [place] [address] 17 Jun, 2014 [facility] [place] [facility] [id number] [place] [address] 15 Jun, 2014 [facility] [place] [facility] [address] [place] [id number] [place] [address] 15 Jun, 2014 [facility] [place] [facility] [id number] [place] [address] 14 Jun, 2014 [facility] [place] [facility] [address] [id number] [place] [address] 14 Jun, 2014 [facility] [place] [facility] [address] [facility] [id number] [place] [address] Jun, [facility] [place] [facility] [address] [id number] [place] [address] Jun, [facility] [place] [facility] [id number] [place] [address] Jun, [facility] [place] [facility] [id number] [place] [address] Jun, [facility] [place] [facility] [id number] [place] [address] Jun, [facility] [place] [facility] [id number] [place] [address] Jun, [facility] [place] [facility] [id number] [place] [address] May, 2013 [facility] [place] [facility] [id number] [place] [address] May, 2013 [facility] [place] [facility] [id number] [place] [address] May, 2013 [facility] [place] [facility] [id number] [place] [address] May, 2013 [facility] [place] [facility] [address] [id number] [place] [address] May, 2013 [facility] [place] [facility] [id number] [place] [address] May, 2013 [facility] [place] [facility] [id number] [place] [address] May, 2013 [facility] [place] [facility] [id number] [place] [address] May, [facility] [place] [facility] [address] [id number] [place] [address] Apr, [facility] [place] [facility] [id number] [place] [address] Apr, [facility] [place] [facility] [address] [id number] [place] [address] Apr, [facility] [place] [facility] [address] [facility] [id number] [facility] [place] [address] Apr, [facility] [place] [facility] [address] [facility] [id number] [facility] [place] [address] Apr, [facility] [place] [facility] [address] [facility] [id number] [facility] [place] [address] Apr, [facility] [place] [facility] [address] [facility] [id number] [place] [address] Apr, [facility] [place] [facility] [address] [facility] [id number] [place] [address] Apr, [facility] [place] [facility] [address] [facility] [id number] [place] [address] Apr, [facility] [place] [facility] [address] [facility] [id number] [facility] [place] [address] Mar, [facility] [place] [facility] [address] [facility] [id number] [facility] [place] [address] Mar, [facility] [place] [facility] [address] [facility] [id number] [facility] [place] [address] Mar, [facility] [place] [facility] [id number] [facility] [place] [address] Feb, [facility] [place] [facility] [address] [facility] [id number] [facility] [place] [address] Feb, [facility] [place] [facility] [address] [id number] [place] [address] Feb, [facility] [place] [facility] [address] [facility] [id number] [facility] [place] [address] Feb, [facility] [place] [facility] [address] [facility] [id number] [place] [address] Feb, [facility] [place] [facility] [address] [facility] [id number] [place] [address] Feb, [facility] [place] [facility] [id number] [facility] [place] [address] 16 Feb, 2014 [facility] [place] [facility] [address] [facility] [id number] [place] [address] Feb, [facility] [place] [facility] [address] [id number] [place] [address] Feb, [facility] [place] [facility] [address] [facility] [id number] [place] [address] Feb, [facility] [place] [facility] [id number] [place] [address] Feb, [facility] [place] [facility] [address] [id number] [place] [address] Feb, [facility] [place] [facility] [address] [facility] [id number] [place] [address] Feb, [facility] [place] [facility] [address] [id number] [place] [address] Feb, [facility] [place] [facility] [address] [id number] [place] [address] Feb, [facility] [place] [facility] [id number] [place] [address] Feb, [facility] [place] [facility] [address] [id number] [place] [address] January, [facility] [place] [facility] [id number] [place] [address] January, [facility] [place] [facility] [address] [id number] [place] [address] January, [facility] [place] [facility] [address] [id number] [place] [address] January, [facility] [place] [facility] [address] [id number] [place] [address] January, [facility] [place] [facility] [address] [id number] [place] [address] January, [facility] [place] [facility] [address] [id number] [place] [address] January, [facility] [place] [facility] [address] [facility] [id number] [place] [address] January, [facility] [place] [facility] [address] [id number] [place] [address] January, [facility] [place] [facility] [address] [id number] [place] [address] January, [facility] [place] [facility] [address] [id number] [place] [address] January, [facility] [place] [facility] [address] [facility] [id number] [place] [address] January, [facility] [place] [facility] [address] [facility] [id number] [place] [address] January, [facility] [place] [facility] [address] [facility] [id number] [place] [address] January, [facility] [place] [facility] [address] [facility] [id number] [place] [address] January, [facility] [place] [facility] [address] [id number] [place] [address] January, [facility] [place] [facility] [id number] [place] [address] January, [facility] [place] [facility] [address] [id number] [place] [address] January, [facility] [place] [facility] [address] [id number] [place] [address] January, [facility] [place] [facility] [id number] [place] [address] January, [facility] [place] [facility] [address] [id number] [place] [address] January, [facility] [place] [facility] [address] [facility] [id number] [place] [address] January, [facility] [place] [facility] [address] [id number] [place] [address] January, [facility] [place] [facility] [address] [facility] [id number] [place] [address] January, [facility] [place] [facility] [address] [facility] [id number] [place] [address] January, [facility] [place] [facility] [address] [facility] [id number] [facility] [place] [address] January, [facility] [place] [facility] [address] [facility] [id number] [facility] [place] [address] Dec, [facility] [place] [facility] [address] [facility] [id number] [facility] [place] [address] Dec, [facility] [place] [facility] [id number] [place] [address] Dec, [facility] [place] [facility] [address] [facility] [id number] [place] [address] Dec, [facility] [place] [facility] [id number] [place] [address] Dec, [facility] [place] [facility] [address] [id number] [facility] [place] [address] Dec, [facility] [place] [facility] [address] [facility] [id number] [facility] [place] [address] Dec, [facility] [place] [facility] [address] [facility] [id number] [facility] [place] [address] Dec, [facility] [place] [facility] [address] [id number] [facility] [place] [address] Dec, [facility] [place] [facility] [address] [id number] [place] [address] Dec, [facility] [place] [facility] [address] [id number] [place] [address] Dec, [facility] [place] [facility] [address] [facility] [id number] [facility] [place] [address] Dec, [facility] [place] [facility] [address] [id number] [place] [address] Dec, [facility] [place] [facility] [address] [facility] [id number] [place] [address] Dec, [facility] [place] [facility] [address] [id number] [facility] [place] [address] Dec, [facility] [place] [facility] [address] [id number] [place] [address] Dec, [facility] [place] [facility] [address] [id number] [facility] [place] [address] Dec, [facility] [place] [facility] [address] [facility] [id number] [place] [address] Dec, [facility] [place] [facility] [id number] [place] [address] Dec, [facility] [place] [facility] [id number] [place] [address] Dec, [facility] [place] [facility] [address] [facility] [id number] [place] [address] Dec, [facility] [place] [facility] [id number] [place] [address] Dec, [facility] [place] [facility] [id number] [place] [address] Nov, [facility] [place] [facility] [id number] [place] [address] Nov, [facility] [place] [facility] [id number] [place] [address] Nov, [facility] [place] [facility] [id number] [place] [address] Nov, [facility] [place] [facility] [id number] [place] [address] Nov, [facility] [place] [facility] [id number] [place] [address] Nov, [facility] [place] [facility] [id number] [place] [address] Nov, [facility] [place] [facility] [id number] [place] [address] Nov, [facility] [place] [facility] [id number] [place] [address] Nov, [facility] [place] [facility] [id number] [place] [address] Nov, [facility] [place] [facility] [id number] [place] [address] Nov, [facility] [place] [facility] [id number] [place] [address] Nov, [facility] [place] [facility] [id number] [place] [address] Nov, [facility] [place] [facility] [id number] [place] [address] Nov, [facility] [place] [facility] [id number] [place] [address] Nov, [facility] [place] [facility] [id number] [place] [address] Nov, [facility] [place] [facility] [id number] [place] [address] Oct, [facility] [place] [facility] [id number] [place] [address] Oct, [facility] [place] [facility] [id number] [place] [address] Oct, [facility] [place] [facility] [id number] [place] [address] Oct, [facility] [place] [facility] [id number] [place] [address] Oct, [facility] [place] [facility] [id number] [place] [address] Oct, [facility] [place] [facility] [id number] [place] [address] Oct, [facility] [place] [facility] [id number] [place] [address] Oct, [facility] [place] [facility] [id number] [place] [address] Oct, [facility] [place] [facility] [id number] [place] [address] Oct, [facility] [place] [facility] [id number] [place] [address] 14 Oct, 2013 [facility] [place] [facility] [id number] [place] [address] 14 Oct, 2013 [facility] [place] [facility] [id number] [place] [address] 04 Oct, 2013 [facility] [place] [facility] [id number] [place] [address] Oct, [facility] [place] [facility] [id number] [place] [address] Oct, [facility] [place] [facility] [id number] [place] [address] Sep, [facility] [place] [facility] [id number] [place] [address] Sep, [facility] [place] [facility] [id number] [place] [address] Sep, [facility] [place] [facility] [id number] [place] [address] Sep, [facility] [place] [facility] [id number] [place] [address] Sep, [facility] [place] [facility] [id number] [place] [address] Sep, [facility] [place] [facility] [id number] [place] [address] Sep, [facility] [place] [facility] [id number] [place] [address] Sep, [facility] [place] [facility] [id number] [place] [address] Sep, [facility] [place] [facility] [id number] [place] [address] Sep, [facility] [place] [facility] [id number] [place] [address] Sep, [facility] [place] [facility] [id number] [place] [address] Sep, [facility] [id number] [place] [address] Sep, [facility] [place] [facility] [id number] [place] [address] Aug, [facility] [place] [facility] [id number] [place] [address] Aug, [facility] [place] [facility] [id number] [place] [address] Aug, [facility] [place] [facility] [address] [id number] [place] [address] Aug, [facility] [id number] [place] [address] Aug, [facility] [id number] [place] [address] 17 Aug, 2013 [facility] [id number] [place] [address] 16 Aug, 2013 [facility] [id number] [place] [address] Aug, [facility] [id number] [place] [address] Aug, [facility] [id number] [place] [address] Aug, [facility] [id number] [place] [address] Aug, [facility] [id number] [place] [address] Aug, [facility] [id number] [place] [address] Aug, [facility] [id number] [place] [address] Aug, [facility] [id number] [place] [address] Jul, [facility] [id number] [place] [address] 19 Jul, 2013 [facility] [id number] [place] [address] 18 Jul, 2013 [facility] [id number] [place] [address] 18 Jul, 2013 [facility] [id number] [place] [address] 14 Jul, 2013 [facility] [id number] [place] [address] 14 Jul, 2013 [facility] [id number] [place] [address] 14 Jul, 2013 [facility] [id number] [place] [address] 14 Jul, 2013 [facility] [id number] [place] [address] 07 Jul, 2013 [facility] [id number] [place] [address] 07 Jul, 2013 [facility] [id number] [place] [address] 06 Jul, 2013 [facility] [id number] [place] [address] 06 Jul, 2013 [facility] [id number] [place] [address] 05 Jul, 2013 [facility] [id number] [place] [address] 05 Jul, 2013 [facility] [id number] [place] [address] Jun, [facility] [id number] [place] [address] Jun, [facility] [id number] [place] [address] 15 Jun, 2013 [facility] [id number] [place] [address] 15 Jun, 2013 [facility] [id number] [place] [address] 14 Oct, 2012 [facility] [address] [id number] [place] [address] 24 Sep, 2012 [facility] [id number] [place] [address] 20 Sep, 2012 [facility] [address] [id number] [place] [address] 20 Sep, 2012 [facility] [id number] [place] [address] 20 Sep, 2012 [facility] [address] [id number] [place] [address] 19 Sep, 2012 [facility] [id number] [place] [address] 13 May, 2012 [facility] [id number] [place] [address] 12 Sep, 2012 [facility] [id number] [place] [address] 12 Sep, 2012 [facility] [address] [id number] [place] [address] 11 Sep, 2012 [facility] [id number] [place] [address] 11 Sep, 2012 [facility] [id number] [place] [address] 11 Sep, 2012 [facility] [address] [id number] [place] [address] 09 Sep, 2012 [facility] [address] [id number] [place] [address] 05 Sep, 2012 [facility] [address] [id number] [place] [address] 04 Sep, 2012 [facility] [id number] [place] [address] 03 Sep, 2012 [facility] [id number] [place] [address] Apr, [facility] [address] [id number] [place] [address] Apr, [facility] [address] [facility] [id number] [facility] [place] [address] Apr, [facility] [address] [facility] [id number] [place] [address] Apr, [facility] [id number] [facility] [place] [address] Apr, [facility] [address] [facility] [id number] [facility] [place] [address] Apr, [facility] [id number] [place] [address] Apr, [facility] [id number] [place] [address] Apr, [facility] [id number] [place] [address] Apr, [facility] [id number] [place] [address] Mar, [facility] [id number] [place] [address] Mar, [facility] [id number] [place] [address] Mar, [facility] [id number] [place] [address] Mar, [facility] [id number] [place] [address] Mar, [facility] [address] [facility] [id number] [place] [address] Mar, [facility] [id number] [place] [address] Mar, [facility] [id number] [place] [address] Mar, [facility] [id number] [place] [address] Mar, [facility] [id number] [facility] [place] [address] Mar, [facility] [id number] [facility] [place] [address] Mar, [facility] [id number] [facility] [place] [address] Feb, [facility] [id number] [facility] [place] [address] Feb, [facility] [id number] [facility] [place] [address] Feb, [facility] [id number] [place] [address] Feb, [facility] [id number] [place] [address] Feb, [facility] [id number] [place] [address] Feb, [facility] [id number] [place] [address] Feb, [facility] [id number] [place] [address] Feb, [facility] [id number] [place] [address] Feb, [facility] [id number] [place] [address] January, [facility] [id number] [place] [address] January, [facility] [id number] [place] [address] January, [facility] [id number] [place] [address] January, [facility] [id number] [place] [address] January, [facility] [id number] [facility] [place] [address] January, [facility] [address] [id number] [place] [address] January, [facility] [address] [facility] [id number] [place] [address] January, [facility] [id number] [place] [address] January, [facility] [id number] [place] [address] January, [facility] [address] [id number] [place] [address] January, [facility] [id number] [place] [address] January, [facility] [id number] [place] [address] January, [facility] [id number] [place] [address] January, [facility] [address] [id number] [place] [address] January, [facility] [id number] [place] [address] January, [facility] [id number] [place] [address] January, [facility] [address] [id number] [place] [address] January, [facility] [address] [id number] [place] [address] January, [facility] [address] [id number] [place] [address] January, [facility] [id number] [place] [address] January, [facility] [id number] [place] [address] January, [facility] [id number] [place] [address] January, [facility] [id number] [place] [address] Dec, [facility] [id number] [place] [address] Dec, [facility] [id number] [place] [address] Dec, [facility] [id number] [place] [address] Dec, [facility] [id number] [place] [address] Dec, [facility] [id number] [place] [address] Nov, [facility] [id number] [place] [address] Oct, [facility] [id number] [place] [address] Oct, [facility] [id number] [place] [address] Oct, [facility] [id number] [place] [address] Oct, [facility] [id number] [place] [address] Oct, [facility] [id number] [place] [address] Sep, [facility] [id number] [place] [address] Sep, [facility] [id number] [place] [address] Sep, [facility] [id number] [place] [address] Aug, [facility] [id number] [place] [address] Aug, [facility] [id number] [place] [address] Aug, [facility] [id number] [place] [address] Aug, [facility] [id number] [place] [address] Jul, [facility] [id number] [place] [address] Jul, [facility] [id number] [place] [address] Jul, [facility] [id number] [place] [address] Jul, [facility] [id number] [place] [address] Jul, [facility] [id number] [place] [address] Jul, [facility] [id number] [place] [address] Jun, [facility] [id number] [place] [address] Jun, [facility] [id number] [place] [address] Jun, [facility] [id number] [place] [address] Jun, [facility] [id number] [place] [address] Jun, [facility] [id number] [place] [address] Jun, [facility] [id number] [place] [address] Jun, [facility] [id number] [place] [address] Jun, [facility] [address] [id number] [place] [address] Jun, [facility] [id number] [place] [address] Jun, [facility] [id number] [place] [address] May, [facility] [id number] [place] [address] 08 May, 2012 [facility] [id number] [place] [address] May, [facility] [id number] [place] [address] Apr, [facility] [id number] [place] [address] Apr, [facility] [id number] [place] [address] Apr, [facility] [id number] [place] [address] Apr, [facility] [id number] [place] [address] Apr, [facility] [id number] [place] [address] Apr, [facility] [id number] [place] [address] Apr, [facility] [id number] [place] [address] Apr, [facility] [id number] [place] [address] Apr, [facility] [id number] [place] [address] Mar, [facility] [id number] [place] [address] Mar, [facility] [id number] [place] [address] Mar, [facility] [id number] [place] [address] Mar, [facility] [id number] [place] [address] Feb, [facility] [id number] [place] [address] Feb, [facility] [id number] [place] [address] Feb, [facility] [id number] [place] [address] January, [facility] [id number] [place] [address] January, [facility] [id number] [place] [address] January, [facility] [id number] [place] [address] January, [facility] [id number] [place] [address] January, [facility] [id number] [place] [address] Dec, [facility] [id number] [place] [address] Dec, [facility] [id number] [place] [address] Dec, [facility] [id number] [place] [address] Oct, [facility] [id number] [place] [address] Oct, [facility] [id number] [place] [address] Oct, [facility] [id number] [place] [address] Sep, [facility] [id number] [place] [address] 18 Sep, 2011 [facility] [id number] [place] [address] 07 Aug, 2011 [facility] [id number] [place] [address] 08 Jul, 2011 [facility] [id number] [place] [address] 08 Jul, 2011 [facility] [id number] [place] [address] Mar, [facility] [id number] [place] [address] Aug, [facility] [id number] [place] [address] Jul, [facility] [id number] [place] [address] Jul, [facility] [id number] [place] [address] Jul, [facility] [id number] [place] [address] Jul, [facility] [id number] [place] [address] 14 Jun, 2010 [facility] [id number] [place] [address] Jun, [facility] [id number] [place] [address] Apr, [facility] [id number] [place] [address] Aug, [facility] [id number] [place] [address] 17 Jul, 2009 [facility] [id number] [place] [address] 17 Jul, 2009 [facility] [id number] [place] [address] Jul, [facility] [id number] [place] [address] Jun, [facility] [id number] [place] [address] May, [facility] [id number] [place] [address] Dec, [facility] [id number] [place] [address] Nov, [facility] [id number] [place] [address] Oct, [facility] [id number] [place] [address] Aug, [facility] [id number] [place] [address] Aug, [facility] [id number] [place] [address] Jun, IMMUNIZATIONS No Known Immunizations SOCIAL HISTORY Never Assessed REASON FOR VISIT PLAN OF CARE VITAL SIGNS Height 66 in 2013-12-20 Weight 345 lbs 2013-12-20 Temperature 96.8 degrees Fahrenheit 2013-12-20 Heart Rate 105 bpm 2013-12-20 Respiratory Rate 34 2013-12-20 Blood pressure systolic 120 mmHg 2013-12-20 Blood pressure diastolic 70 mmHg 2013-12-20 MEDICATIONS Unknown Medications RESULTS No Results PROCEDURES Procedure Date Ordered Result Body Site MEASURE BLOOD OXYGEN LEVEL December 20, 2013 GLYCATED HEMOGLOBIN TEST December 20, 2013 INSTRUCTIONS MEDICATIONS ADMINISTERED No Known Medications [...] x 3 day s 04/2012 Hospitalization History [facility] [place]- Right wrist injury 03/29/2018
--- OUTSIDE RECORDS SUMMARY | 2020-04-09 00:33 | XMS REPORT ---
Author Author Kateryna UMANZOR Organization [facility] Address [address] [place] [address] Care Team Providers Care Operations Consultant Name Role Phone ZENA UMANZOR Unavailable PROBLEMS Type Condition ICD9-CM Code ZKK74-TU Code Onset Dates Condition S tatus SNOMED Code Problem Irregular menses N92.6 Active 801 03323 Problem Migraine with aura and without status migrainosu s, not intractable G43.109 Active 5161809 Problem Uncontrolled type 2 diabetes mellitus with hyperglycemia E11.65 Active 837400437 Problem Morbid obesity due to excess calories E66.01 Active 993273710 Problem RLS (restless legs syndrome) G25.81 A ctive 91989860 Problem Morbid obesity E66.01 Active 92845 6002 ALLERGIES No Information ENCOUNTERS Encounter Location Date Diagnosis [place] [address] [address] 16 Sep, 2019 [place] [address] [address] 14 Sep, 2019 [place] [address] [address] 14 Sep, 2019 [place] [address] [address] 13 Sep, 2019 [place] [address] [address] 10 Sep, 2019 Pneumonia of left lower lobe due to infe ctious organism J18.9 and Migraine with aura and without status migrainosus, not intractable G43.109 [facility] [address] [address] 10 Sep, 2019 [facility] [address] [address] 10 Sep, 2019 [facility] [address] [address] 08 Sep, 2019 [facility] [address] [address] Sep, [facility] [address] [address] Sep, Pneumonia of left lower lobe due to infe ctious organism J18.9 and Migraine with aura and without status migrainosus, not intractable G43.109 [facility] [address] [address] Aug, Irregular menses N92.6 ; Well woman exam Z01.419 ; Pelvic cramping R10.2 and Left breast lump N63.20 [place] [address] [address] Aug, [place] [address] [address] Aug, Well woman exam Z01.419 ; Left breast nenita mp N63.20 ; Irregular menses N92.6 ; Encounter for immunization Z23 ; Pelvic cramping R10.2 and Screening for cervical cancer Z12.4 [place] [address] [address] Aug, [facility] [address] [address] Aug, [facility] [address] [address] Aug, [facility] [address] [address] Jul, [facility] [address] [address] Jun, [facility] [address] [address] Jun, [facility] [address] [address] Jun, [place] [address] [address] Jun, BMI 50.0-59.9, adult Z68.43 [place] [address] [address] Jun, [facility] [address] [facility] [id number] [address] [place] [address] May, Acute non-recurrent sinusiti s, unspecified location J01.90 ; Diarrhea, unspecified R19.7 ; Vomiting, unspecified R11.10 and Morbid obesity E66.01 [place] [address] [address] Apr, [place] [address] [address] Apr, Anemia due to other cause, not classifie d D64.89 and D-dimer, elevated R79.89 [place] [address] [address] Apr, [place] [address] [address] Apr, [place] [address] [address] Mar, Anemia due to other cause, not classifie d D64.89 and D-dimer, elevated R79.89 [place] [address] [address] Mar, Leg edema, right R60.0 ; High risk medic ation use Z79.899 and Morbid obesity E66.01 [place] [address] [address] Mar, BMI 50.0-59.9, adult Z68.43 [place] [address] [address] Mar, [place] [address] [address] January, Uncontrolled type 2 diabetes mellitus wi th hyperglycemia E11.65 ; RLS (restless legs syndrome) G25.81 and Morbid obesity E66.01 [place] [address] [address] 15 Oct, 2018 Lipoma of right lower extremity D17.23 [facility] [address] [address] Oct, Lipoma of right lower extremity D17.23 [facility] [address] [address] Sep, [facility] [address] [address] Sep, [facility] [address] [address] Sep, [place] [address] [address] Sep, [facility] [address] [address] Sep, [facility] [address] [address] Aug, Uncontrolled type 2 diabetes mellitus wi th hyperglycemia E11.65 ; Morbid obesity due to excess calories E66.01 ; Lipoma of torso D17.1 and BMI 50.0-59.9, adult Z68.43 [place] [address] [address] Jun, Encounter for immunization Z23 [place] [address] [address] Jul, [place] [address] [address] Jun, Encounter for immunization Z23 [facility] [address] [address] May, [place] [address] [address] Jun, Encounter for immunization Z23 [facility] [address] [id number] [place] [address] May, [facility] [place] [facility] [address] [id number] [place] [address] May, [facility] [place] [facility] [address] [id number] [place] [address] Apr, [facility] [place] [facility] [address] [id number] [place] [address] Feb, [facility] [place] [facility] [address] [id number] [place] [address] Feb, [facility] [place] [facility] [address] [id number] [place] [address] Feb, [facility] [place] [facility] [address] [id number] [place] [address] January, [facility] [place] [facility] [address] [id number] [place] [address] January, [facility] [place] [facility] [address] [id number] [place] [address] Dec, [facility] [place] [facility] [address] [place] [id number] [place] [address] Dec, [facility] [place] [facility] [address] [id number] [place] [address] Nov, [facility] [place] [facility] [address] [id number] [place] [address] Nov, [facility] [place] [facility] [address] [id number] [place] [address] Nov, [facility] [place] [facility] [address] [id number] [place] [address] Nov, [facility] [place] [facility] [address] [id number] [place] [address] Nov, [facility] [place] [facility] [address] [id number] [place] [address] Nov, [facility] [place] [facility] [address] [id number] [place] [address] Nov, [facility] [place] [facility] [address] [facility] [id number] [place] [address] Oct, [facility] [place] [facility] [address] [id number] [place] [address] Oct, [facility] [place] [facility] [address] [id number] [place] [address] Oct, [facility] [place] [facility] [address] [id number] [place] [address] Oct, [facility] [place] [facility] [address] [id number] [place] [address] Oct, [facility] [place] [facility] [address] [id number] [place] [address] Sep, [facility] [place] [facility] [address] [id number] [place] [address] Sep, [facility] [place] [facility] [address] [id number] [place] [address] Sep, [facility] [place] [facility] [address] [id number] [place] [address] Sep, [facility] [place] [facility] [address] [id number] [place] [address] Sep, [facility] [place] [facility] [address] [id number] [place] [address] Sep, [facility] [place] [facility] [address] [id number] [place] [address] Sep, [facility] [place] [facility] [address] [id number] [place] [address] Sep, [facility] [place] [facility] [address] [id number] [place] [address] Sep, [facility] [place] [facility] [address] [id number] [place] [address] Sep, [facility] [place] [facility] [address] [id number] [place] [address] Aug, [facility] [place] [facility] [address] [id number] [place] [address] Aug, [facility] [place] [facility] [address] [id number] [place] [address] Aug, [facility] [place] [facility] [address] [id number] [place] [address] Aug, [facility] [place] [facility] [address] [id number] [place] [address] Aug, [facility] [place] [facility] [address] [id number] [place] [address] Aug, [facility] [place] [facility] [address] [id number] [place] [address] Aug, [facility] [place] [facility] [address] [id number] [place] [address] Aug, [facility] [place] [facility] [address] [id number] [place] [address] Aug, [facility] [place] [facility] [address] [id number] [place] [address] Aug, [facility] [place] [facility] [address] [id number] [place] [address] Aug, [facility] [place] [facility] [address] [id number] [place] [address] Aug, [facility] [place] [facility] [address] [id number] [place] [address] Aug, [facility] [place] [facility] [address] [id number] [place] [address] 18 Aug, 2014 [facility] [place] [facility] [address] [id number] [place] [address] 17 Aug, 2014 [facility] [place] [facility] [address] [id number] [place] [address] 17 Aug, 2014 [facility] [place] [facility] [address] [id number] [place] [address] 16 Aug, 2014 [facility] [place] [facility] [address] [id number] [place] [address] 16 Aug, 2014 [facility] [place] [facility] [address] [facility] [id number] [place] [address] Aug, [facility] [place] [facility] [address] [facility] [id number] [place] [address] Aug, [facility] [place] [facility] [address] [id number] [place] [address] Aug, [facility] [place] [facility] [address] [id number] [place] [address] Aug, [facility] [place] [facility] [address] [id number] [place] [address] Aug, [facility] [place] [facility] [address] [id number] [place] [address] Aug, [facility] [place] [facility] [address] [id number] [place] [address] Jul, [facility] [place] [facility] [address] [id number] [place] [address] Jul, [facility] [place] [facility] [address] [id number] [place] [address] Jun, [facility] [place] [facility] [address] [id number] [place] [address] 27 Jun, 2014 [facility] [place] [facility] [address] [id number] [place] [address] 17 Jun, 2014 [facility] [place] [facility] [address] [id number] [place] [address] 17 Jun, 2014 [facility] [place] [facility] [address] [id number] [place] [address] 15 Jun, 2014 [facility] [place] [facility] [address] [id number] [place] [address] 15 Jun, 2014 [facility] [place] [facility] [address] [id number] [place] [address] 14 Jun, 2014 [facility] [place] [facility] [address] [id number] [place] [address] 14 Jun, 2014 [facility] [place] [facility] [address] [facility] [id number] [place] [address] Jun, [facility] [place] [facility] [address] [facility] [id number] [place] [address] Jun, [facility] [place] [facility] [address] [facility] [id number] [place] [address] Jun, [facility] [place] [facility] [address] [id number] [place] [address] Jun, [facility] [place] [facility] [address] [facility] [id number] [place] [address] Jun, [facility] [place] [facility] [address] [facility] [id number] [place] [address] Jun, [facility] [place] [facility] [address] [id number] [place] [address] May, [facility] [place] [facility] [address] [id number] [place] [address] May, [facility] [place] [facility] [address] [id number] [place] [address] May, [facility] [place] [facility] [address] [facility] [id number] [place] [address] May, [facility] [place] [facility] [address] [id number] [place] [address] May, [facility] [place] [facility] [address] [id number] [place] [address] May, [facility] [place] [facility] [address] [id number] [place] [address] May, 2013 [facility] [place] [facility] [address] [facility] [id number] [place] [address] May, [facility] [place] [facility] [address] [id number] [place] [address] Apr, [facility] [place] [facility] [address] [id number] [place] [address] Apr, [facility] [place] [facility] [address] [id number] [place] [address] Apr, [facility] [place] [facility] [address] [facility] [id number] [place] [address] Apr, [facility] [place] [facility] [address] [facility] [id number] [place] [address] Apr, [facility] [place] [facility] [address] [id number] [place] [address] Apr, [facility] [place] [facility] [address] [id number] [place] [address] Apr, [facility] [place] [facility] [address] [facility] [id number] [place] [address] Apr, [facility] [place] [facility] [address] [id number] [place] [address] Apr, [facility] [place] [facility] [address] [id number] [place] [address] Mar, [facility] [place] [facility] [address] [id number] [place] [address] Mar, [facility] [place] [facility] [address] [id number] [place] [address] Mar, [facility] [place] [facility] [address] [id number] [place] [address] Feb, [facility] [place] [facility] [address] [id number] [place] [address] Feb, [facility] [place] [facility] [address] [id number] [place] [address] Feb, [facility] [place] [facility] [address] [id number] [place] [address] Feb, [facility] [place] [facility] [address] [id number] [place] [address] Feb, [facility] [place] [facility] [address] [id number] [place] [address] Feb, [facility] [place] [facility] [address] [id number] [place] [address] 16 Feb, 2014 [facility] [place] [facility] [address] [id number] [place] [address] Feb, [facility] [place] [facility] [address] [facility] [id number] [facility] [place] [address] Feb, [facility] [place] [facility] [address] [facility] [id number] [facility] [place] [address] Feb, [facility] [place] [facility] [address] [id number] [facility] [place] [address] Feb, [facility] [place] [facility] [address] [facility] [id number] [facility] [place] [address] Feb, [facility] [place] [facility] [address] [facility] [id number] [facility] [place] [address] Feb, [facility] [place] [facility] [address] [id number] [facility] [place] [address] Feb, [facility] [place] [facility] [address] [id number] [place] [address] Feb, [facility] [place] [facility] [address] [id number] [place] [address] Feb, [facility] [place] [facility] [address] [facility] [id number] [facility] [place] [address] January, [facility] [place] [facility] [address] [id number] [place] [address] January, [facility] [place] [facility] [address] [id number] [place] [address] January, [facility] [place] [facility] [address] [id number] [facility] [place] [address] January, [facility] [place] [facility] [address] [facility] [id number] [facility] [place] [address] January, [facility] [place] [facility] [address] [id number] [place] [address] January, [facility] [place] [facility] [address] [facility] [id number] [place] [address] January, [facility] [place] [facility] [address] [id number] [facility] [place] [address] January, [facility] [place] [facility] [address] [facility] [id number] [place] [address] January, [facility] [place] [facility] [address] [id number] [place] [address] January, [facility] [place] [facility] [address] [facility] [id number] [place] [address] January, [facility] [place] [facility] [address] [id number] [place] [address] January, [facility] [place] [facility] [address] [facility] [id number] [place] [address] January, [facility] [place] [facility] [address] [id number] [place] [address] January, [facility] [place] [facility] [address] [id number] [place] [address] January, [facility] [place] [facility] [address] [id number] [place] [address] January, [facility] [place] [facility] [address] [id number] [place] [address] January, [facility] [place] [facility] [address] [facility] [id number] [place] [address] January, [facility] [place] [facility] [address] [id number] [place] [address] January, [facility] [place] [facility] [address] [id number] [place] [address] January, [facility] [place] [facility] [address] [id number] [place] [address] January, [facility] [place] [facility] [address] [id number] [place] [address] January, [facility] [place] [facility] [address] [id number] [place] [address] January, [facility] [place] [facility] [address] [id number] [place] [address] January, [facility] [place] [facility] [address] [id number] [place] [address] January, [facility] [place] [facility] [address] [id number] [place] [address] January, [facility] [place] [facility] [address] [id number] [place] [address] Dec, [facility] [place] [facility] [address] [id number] [place] [address] Dec, [facility] [place] [facility] [address] [id number] [place] [address] Dec, [facility] [place] [facility] [address] [facility] [id number] [place] [address] Dec, [facility] [place] [facility] [address] [id number] [place] [address] Dec, [facility] [place] [facility] [address] [id number] [place] [address] Dec, [facility] [place] [facility] [address] [id number] [place] [address] Dec, [facility] [place] [facility] [address] [id number] [place] [address] Dec, [facility] [place] [facility] [address] [id number] [place] [address] Dec, [facility] [place] [facility] [address] [id number] [place] [address] Dec, [facility] [place] [facility] [address] [id number] [place] [address] Dec, [facility] [place] [facility] [address] [id number] [place] [address] Dec, [facility] [place] [facility] [address] [id number] [place] [address] Dec, [facility] [place] [facility] [address] [id number] [place] [address] Dec, [facility] [place] [facility] [address] [id number] [place] [address] Dec, [facility] [place] [facility] [address] [id number] [place] [address] Dec, [facility] [place] [facility] [address] [facility] [id number] [place] [address] Dec, [facility] [place] [facility] [address] [facility] [id number] [place] [address] Dec, [facility] [place] [facility] [address] [id number] [place] [address] Dec, [facility] [place] [facility] [address] [facility] [id number] [place] [address] Dec, [facility] [place] [facility] [address] [facility] [id number] [place] [address] Dec, [facility] [place] [facility] [address] [facility] [id number] [place] [address] Dec, [facility] [place] [facility] [address] [id number] [facility] [place] [address] Nov, [facility] [place] [facility] [address] [id number] [facility] [place] [address] Nov, [facility] [place] [facility] [address] [facility] [id number] [facility] [place] [address] Nov, [facility] [place] [facility] [address] [id number] [facility] [place] [address] Nov, [facility] [place] [facility] [address] [id number] [place] [address] Nov, [facility] [place] [facility] [address] [id number] [facility] [place] [address] Nov, [facility] [place] [facility] [address] [facility] [id number] [facility] [place] [address] Nov, [facility] [place] [facility] [address] [id number] [place] [address] Nov, [facility] [place] [facility] [address] [facility] [id number] [facility] [place] [address] Nov, [facility] [place] [facility] [address] [id number] [facility] [place] [address] Nov, [facility] [place] [facility] [address] [id number] [place] [address] 18 Nov, 2013 [facility] [place] [facility] [address] [facility] [id number] [place] [address] Nov, [facility] [place] [facility] [address] [id number] [place] [address] Nov, [facility] [place] [facility] [address] [id number] [place] [address] Nov, [facility] [place] [facility] [address] [id number] [place] [address] Nov, [facility] [place] [facility] [address] [id number] [place] [address] Nov, [facility] [place] [facility] [address] [id number] [place] [address] Oct, [facility] [place] [facility] [address] [id number] [place] [address] Oct, [facility] [place] [facility] [address] [id number] [place] [address] Oct, [facility] [place] [facility] [address] [id number] [place] [address] Oct, [facility] [place] [facility] [address] [id number] [place] [address] 24 Oct, 2013 [facility] [place] [facility] [address] [id number] [place] [address] Oct, [facility] [place] [facility] [address] [id number] [place] [address] Oct, [facility] [place] [facility] [address] [id number] [place] [address] Oct, [facility] [place] [facility] [address] [id number] [place] [address] Oct, [facility] [place] [facility] [address] [id number] [place] [address] 17 Oct, 2013 [facility] [place] [facility] [address] [id number] [place] [address] 14 Oct, 2013 [facility] [place] [facility] [address] [facility] [id number] [place] [address] Oct, [facility] [place] [facility] [address] [facility] [id number] [place] [address] Oct, [facility] [place] [facility] [address] [id number] [place] [address] Oct, [facility] [place] [facility] [address] [facility] [id number] [place] [address] Oct, [facility] [place] [facility] [address] [facility] [id number] [place] [address] Sep, [facility] [place] [facility] [address] [id number] [place] [address] Sep, [facility] [place] [facility] [address] [id number] [place] [address] Sep, [facility] [place] [facility] [address] [id number] [place] [address] Sep, [facility] [place] [facility] [address] [id number] [place] [address] Sep, [facility] [place] [facility] [address] [id number] [place] [address] Sep, [facility] [place] [facility] [address] [id number] [place] [address] Sep, [facility] [place] [facility] [address] [id number] [place] [address] Sep, [facility] [place] [facility] [address] [facility] [id number] [place] [address] Sep, [facility] [place] [facility] [address] [id number] [place] [address] Sep, [facility] [place] [facility] [address] [id number] [place] [address] Sep, [facility] [place] [facility] [address] [id number] [place] [address] Sep, [facility] [place] [facility] [address] [id number] [place] [address] Sep, [facility] [place] [facility] [address] [id number] [place] [address] 30 Aug, 2013 [facility] [place] [facility] [address] [id number] [place] [address] 30 Aug, 2013 [facility] [place] [facility] [address] [id number] [place] [address] Aug, [facility] [place] [facility] [address] [id number] [place] [address] 24 Aug, 2013 [facility] [place] [facility] [address] [id number] [place] [address] 17 Aug, 2013 [facility] [place] [facility] [id number] [place] [address] 17 Aug, 2013 [facility] [place] [facility] [id number] [place] [address] 16 Aug, 2013 [facility] [place] [facility] [id number] [place] [address] 16 Aug, 2013 [facility] [place] [facility] [id number] [place] [address] Aug, [facility] [place] [facility] [id number] [place] [address] 12 Aug, 2013 [facility] [place] [facility] [id number] [place] [address] 10 Aug, 2013 [facility] [place] [facility] [id number] [place] [address] 10 Aug, 2013 [facility] [place] [facility] [id number] [place] [address] Aug, [facility] [place] [facility] [id number] [place] [address] Aug, [facility] [place] [facility] [id number] [place] [address] Jul, [facility] [place] [facility] [id number] [place] [address] 19 Jul, 2013 [facility] [place] [facility] [id number] [place] [address] 18 Jul, 2013 [facility] [place] [facility] [id number] [place] [address] 18 Jul, 2013 [facility] [place] [facility] [id number] [place] [address] 14 Jul, 2012 [facility] [place] [facility] [id number] [place] [address] 14 Jul, 2013 [facility] [place] [facility] [id number] [place] [address] 14 Jul, 2013 [facility] [place] [facility] [id number] [place] [address] 14 Jul, 2013 [facility] [place] [facility] [id number] [place] [address] 07 Jul, 2013 [facility] [place] [facility] [id number] [place] [address] 07 Jul, 2013 [facility] [place] [facility] [id number] [place] [address] 06 Jul, 2013 [facility] [place] [facility] [id number] [place] [address] 06 Jul, 2013 [facility] [place] [facility] [id number] [place] [address] 05 Jul, 2013 [facility] [place] [facility] [id number] [place] [address] 05 Jul, 2013 [facility] [place] [facility] [id number] [place] [address] Jun, [facility] [place] [facility] [id number] [place] [address] 23 Jun, 2013 [facility] [place] [facility] [id number] [place] [address] 15 Jun, 2013 [facility] [place] [facility] [id number] [place] [address] 15 Jun, 2013 [facility] [place] [facility] [id number] [place] [address] 14 Jun, 2012 [facility] [place] [facility] [address] [id number] [place] [address] 24 Sep, 2012 [facility] [place] [facility] [id number] [place] [address] 20 May, 2012 [facility] [place] [facility] [address] [id number] [place] [address] 20 Sep, 2012 [facility] [place] [facility] [address] [id number] [place] [address] 20 Sep, 2012 [facility] [place] [facility] [address] [id number] [place] [address] 19 May, 2012 [facility] [place] [facility] [id number] [place] [address] 13 May, 2012 [facility] [place] [facility] [id number] [place] [address] 12 May, 2012 [facility] [place] [facility] [id number] [place] [address] 12 May, 2012 [facility] [place] [facility] [address] [id number] [place] [address] 11 May, 2012 [facility] [place] [facility] [id number] [place] [address] 11 May, 2012 [facility] [place] [facility] [id number] [place] [address] 11 May, 2012 [facility] [place] [facility] [address] [id number] [place] [address] 09 Sep, 2012 [facility] [place] [facility] [address] [id number] [place] [address] 05 Sep, 2012 [facility] [place] [facility] [address] [id number] [place] [address] 04 Sep, 2012 [facility] [place] [facility] [id number] [place] [address] 03 May, 2012 [facility] [place] [facility] [id number] [place] [address] 27 Apr, 2013 [facility] [place] [facility] [address] [id number] [place] [address] Apr, [facility] [place] [facility] [id number] [place] [address] Apr, [facility] [place] [facility] [id number] [place] [address] Apr, [facility] [place] [facility] [id number] [place] [address] Apr, [facility] [place] [facility] [address] [facility] [id number] [place] [address] Apr, [facility] [place] [facility] [address] [id number] [place] [address] Apr, [facility] [place] [facility] [id number] [place] [address] Apr, [facility] [place] [facility] [id number] [place] [address] Apr, [facility] [place] [facility] [id number] [place] [address] Mar, [facility] [place] [facility] [id number] [place] [address] Mar, [facility] [place] [facility] [id number] [place] [address] Mar, [facility] [place] [facility] [id number] [place] [address] Mar, [facility] [place] [facility] [id number] [place] [address] Mar, [facility] [place] [facility] [address] [facility] [id number] [place] [address] Mar, [facility] [place] [facility] [id number] [place] [address] Mar, [facility] [place] [facility] [id number] [place] [address] Mar, [facility] [place] [facility] [id number] [place] [address] Mar, [facility] [place] [facility] [address] [facility] [id number] [place] [address] Mar, [facility] [place] [facility] [address] [facility] [id number] [facility] [place] [address] Mar, [facility] [place] [facility] [id number] [place] [address] Feb, [facility] [place] [facility] [id number] [place] [address] Feb, [facility] [place] [facility] [address] [facility] [id number] [place] [address] Feb, [facility] [place] [facility] [id number] [place] [address] Feb, [facility] [place] [facility] [id number] [place] [address] Feb, [facility] [place] [facility] [id number] [place] [address] Feb, [facility] [place] [facility] [id number] [place] [address] Feb, [facility] [place] [facility] [id number] [place] [address] Feb, [facility] [place] [facility] [id number] [place] [address] Feb, [facility] [place] [facility] [id number] [place] [address] January, [facility] [place] [facility] [id number] [place] [address] January, [facility] [place] [facility] [id number] [place] [address] January, [facility] [place] [facility] [id number] [place] [address] January, [facility] [place] [facility] [id number] [place] [address] January, [facility] [place] [facility] [id number] [place] [address] January, [facility] [address] [id number] [place] [address] January, [facility] [place] [facility] [id number] [place] [address] January, [facility] [place] [facility] [id number] [place] [address] January, [facility] [place] [facility] [address] [id number] [place] [address] January, [facility] [place] [facility] [address] [id number] [place] [address] January, [facility] [place] [facility] [id number] [place] [address] January, [facility] [place] [facility] [id number] [place] [address] January, [facility] [place] [facility] [id number] [place] [address] January, [facility] [place] [facility] [address] [id number] [place] [address] January, [facility] [place] [facility] [id number] [place] [address] January, [facility] [place] [facility] [id number] [place] [address] January, [facility] [place] [facility] [id number] [place] [address] January, [facility] [place] [facility] [address] [id number] [place] [address] January, [facility] [place] [facility] [address] [id number] [place] [address] January, [facility] [place] [facility] [id number] [place] [address] January, [facility] [place] [facility] [id number] [place] [address] January, [facility] [place] [facility] [id number] [place] [address] January, [facility] [id number] [place] [address] Dec, [facility] [place] [facility] [id number] [place] [address] Dec, [facility] [id number] [place] [address] Dec, [facility] [place] [facility] [id number] [place] [address] Dec, [facility] [place] [facility] [id number] [place] [address] Dec, [facility] [place] [facility] [id number] [place] [address] Nov, [facility] [id number] [place] [address] Oct, [facility] [place] [facility] [id number] [place] [address] Oct, [facility] [place] [facility] [id number] [place] [address] Oct, [facility] [place] [facility] [id number] [place] [address] Oct, [facility] [place] [facility] [id number] [place] [address] Oct, [facility] [place] [facility] [id number] [place] [address] Sep, [facility] [place] [facility] [id number] [place] [address] Sep, [facility] [place] [facility] [id number] [place] [address] Sep, [facility] [place] [facility] [id number] [place] [address] Aug, [facility] [place] [facility] [id number] [place] [address] Aug, [facility] [place] [facility] [id number] [place] [address] Aug, [facility] [place] [facility] [id number] [place] [address] Aug, [facility] [place] [facility] [id number] [place] [address] Jul, [facility] [place] [facility] [id number] [place] [address] Jul, [facility] [place] [facility] [id number] [place] [address] Jul, [facility] [place] [facility] [id number] [place] [address] Jul, [facility] [place] [facility] [id number] [place] [address] Jul, [facility] [place] [facility] [id number] [place] [address] Jul, [facility] [place] [facility] [id number] [place] [address] Jun, [facility] [place] [facility] [id number] [place] [address] Jun, [facility] [place] [facility] [id number] [place] [address] Jun, [facility] [place] [facility] [id number] [place] [address] Jun, [facility] [place] [facility] [id number] [place] [address] Jun, [facility] [place] [facility] [id number] [place] [address] Jun, [facility] [place] [facility] [id number] [place] [address] Jun, [facility] [place] [facility] [id number] [place] [address] Jun, [facility] [place] [facility] [address] [facility] [id number] [facility] [place] [address] Jun, [facility] [place] [facility] [address] [id number] [place] [address] Jun, [facility] [place] [facility] [address] [facility] [id number] [place] [address] May, [facility] [place] [facility] [id number] [place] [address] 08 May, 2012 [facility] [place] [facility] [id number] [place] [address] May, [facility] [place] [facility] [id number] [place] [address] Apr, [facility] [place] [facility] [id number] [place] [address] Apr, [facility] [place] [facility] [id number] [place] [address] Apr, [facility] [place] [facility] [id number] [place] [address] Apr, [facility] [place] [facility] [id number] [place] [address] Apr, [facility] [place] [facility] [id number] [place] [address] Apr, [facility] [place] [facility] [id number] [place] [address] Apr, [facility] [place] [facility] [id number] [place] [address] Apr, [facility] [place] [facility] [id number] [place] [address] Apr, [facility] [place] [facility] [id number] [place] [address] Mar, [facility] [place] [facility] [id number] [place] [address] Mar, [facility] [place] [facility] [id number] [place] [address] Mar, [facility] [place] [facility] [address] [id number] [place] [address] Mar, [facility] [place] [facility] [id number] [place] [address] Feb, [facility] [place] [facility] [id number] [place] [address] Feb, [facility] [place] [facility] [id number] [place] [address] Feb, [facility] [place] [facility] [id number] [place] [address] January, [facility] [place] [facility] [id number] [place] [address] January, [facility] [place] [facility] [id number] [place] [address] January, [facility] [place] [facility] [id number] [place] [address] January, [facility] [place] [facility] [id number] [place] [address] January, [facility] [place] [facility] [id number] [place] [address] Dec, [facility] [place] [facility] [id number] [place] [address] Dec, [facility] [place] [facility] [id number] [place] [address] Dec, [facility] [place] [facility] [id number] [place] [address] Oct, [facility] [place] [facility] [id number] [place] [address] Oct, [facility] [place] [facility] [id number] [place] [address] Oct, [facility] [place] [facility] [id number] [place] [address] Sep, [facility] [place] [facility] [id number] [place] [address] 18 Sep, 2011 [facility] [place] [facility] [id number] [place] [address] Aug, [facility] [place] [facility] [id number] [place] [address] Jul, [facility] [place] [facility] [id number] [place] [address] 08 Jul, 2011 [facility] [place] [facility] [id number] [place] [address] Mar, [facility] [place] [facility] [id number] [place] [address] Aug, [facility] [place] [facility] [id number] [place] [address] Jul, [facility] [place] [facility] [id number] [place] [address] Jul, [facility] [place] [facility] [id number] [place] [address] Jul, [facility] [place] [facility] [id number] [place] [address] Jul, [facility] [place] [facility] [id number] [place] [address] 14 Jun, 2010 [facility] [place] [facility] [id number] [place] [address] Jun, [facility] [place] [facility] [id number] [place] [address] Apr, [facility] [place] [facility] [id number] [place] [address] Aug, [facility] [place] [facility] [id number] [place] [address] 17 Jul, 2009 [facility] [place] [facility] [id number] [place] [address] Jul, [facility] [place] [facility] [id number] [place] [address] 13 Jul, 2009 [facility] [place] [facility] [id number] [place] [address] Jun, [facility] [id number] [place] [address] May, [facility] [id number] [place] [address] 14 Dec, 2008 [facility] [id number] [place] [address] Nov, [facility] [id number] [place] [address] Oct, [facility] [id number] [place] [address] Aug, [facility] [id number] [place] [address] Aug, [facility] [id number] [place] [address] Jun, IMMUNIZATIONS No Known Immunizations SOCIAL HISTORY [...] x 3 day s 04/2012 Hospitalization History [facility] [place]- Right wrist injury 03/29/2018
--- OUTSIDE RECORDS SUMMARY | 2020-04-09 00:41 | XMS REPORT ---
Author Author Kateryna LOPEZ Organization [facility] Address [address] [place] [address] Care Team Providers [employer] Architect Name Role Phone JESSE LOPEZ Unavailable PROBLEMS Type Condition ICD9-CM Code SPA41-VE Code Onset Dates Condition S tatus SNOMED Code Problem Irregular menses N92.6 Active 801 86875 Problem Migraine with aura and without status migrainosu s, not intractable G43.109 Active 1175883 Problem Uncontrolled type 2 diabetes mellitus with hyperglycemia E11.65 Active 055442376 Problem Morbid obesity due to excess calories E66.01 Active 885642530 Problem RLS (restless legs syndrome) G25.81 A ctive 83228788 Problem Morbid obesity E66.01 Active 60851 6002 ALLERGIES No Information ENCOUNTERS Encounter Location Date Diagnosis [facility] [id number] [place] [id number] 09 Mar, 2020 Dysuria R30.0 and Nocturnal confusion R41.0 [facility] [address] [facility] [id number] [address] [place] [id number] 09 Mar, 2020 [facility] [address] [facility] [id number] [address] [place] [phone] Mar, [facility] [address] [facility] [id number] [address] [place] [id number] 30 Feb, 2020 [facility] [address] [facility] [id number] [address] [place] [id number] 15 Feb, 2020 Encounter for screening labo ratory testing for COVID-19 virus Z11.59 [facility] [address] [facility] [id number] [address] [place] [address] 08 Feb, 2020 [facility] [address] [place] [id number] [address] [place] [id number] January, [facility] [address] [facility] [id number] [address] [place] [address] January, BMI 50.0-59.9, adult Z68.43 and Vomiting, unspecified R11.10 [facility] [address] [facility] [id number] [address] [place] [phone] January, [facility] [address] [facility] [id number] [address] [place] [address] Dec, [facility] [address] [facility] [id number] [address] [place] [address] Dec, [facility] [address] [facility] [id number] [address] [place] [address] Dec, Uncontrolled type 2 diabetes mellitus with hyperglycemia E11.65 [facility] [address] [facility] [id number] [address] [place] [id number] 07 Dec, 2019 [facility] [address] [facility] [id number] [address] [place] [address] Dec, [facility] [address] [facility] [id number] [address] [place] [address] Dec, [facility] [address] [facility] [id number] [address] [place] [address] Nov, [facility] [address] [facility] [id number] [address] [place] [address] Nov, [facility] [address] [facility] [id number] [address] [place] [phone] Nov, [facility] [address] [facility] [id number] [address] [place] [address] Nov, RLS (restless legs syndrome) G25.81 [facility] [address] [facility] [id number] [address] [place] [id number] 15 Oct, 2019 [facility] [address] [facility] [id number] [address] [place] [phone] 09 Oct, 2019 Influenza J11.1 [facility] [address] [id number] [address] [place] [id number] 16 Sep, 2019 [facility] [address] [id number] [address] [place] [id number] 14 Sep, 2019 [facility] [address] [id number] [address] [place] [id number] 14 Sep, 2019 [facility] [address] [id number] [address] [place] [address] 13 Sep, 2019 [facility] [address] [id number] [address] [place] [address] 10 Sep, 2019 Pneumonia of left lower lobe due to infectious organism J18.9 and Migraine with aura and without status migrainosus, not intractable G43.109 [facility] [address] [id number] [address] [place] [id number] 10 Sep, 2019 [facility] [address] [id number] [address] [place] [address] 10 Sep, 2019 [facility] [address] [id number] [address] [place] [address] Sep, [facility] [address] [id number] [address] [place] [phone] 08 Sep, 2019 [facility] [address] [id number] [address] [place] [address] 08 Sep, 2019 Pneumonia of left lower lobe due to infectious organism J18.9 and Migraine with aura and without status migrainosus, not intractable G43.109 [facility] [address] [id number] [address] [place] [address] Aug, Irregular menses N92.6 ; Wel l woman exam Z01.419 ; Pelvic cramping R10.2 and Left breast lump N63.20 [facility] [address] [id number] [address] [place] [address] Aug, [facility] [address] [place] [id number] [address] [place] [address] 17 Aug, 2019 Well woman exam Z01.419 ; Le ft breast lump N63.20 ; Irregular menses N92.6 ; Encounter for immunization Z23 ; Pelvic cramping R10.2 and Screening for cervical cancer Z12.4 [facility] [address] [facility] [id number] [address] [place] [phone] Aug, [facility] [address] [facility] [id number] [address] [place] [address] Aug, [facility] [address] [facility] [id number] [address] [place] [address] Aug, [facility] [address] [facility] [id number] [place] [phone] Jul, [facility] [address] [place] [id number] [address] [place] [address] Jun, [facility] [address] [place] [id number] [place] [address] Jun, [facility] [address] [facility] [id number] [address] [place] [address] Jun, [facility] [address] [place] [id number] [address] [place] [address] Jun, BMI 50.0-59.9, adult Z68.43 [facility] [address] [place] [id number] [place] [address] Jun, [facility] [address] [facility] [id number] [address] [place] [id number] 09 May, 2019 Acute non-recurrent sinusiti s, unspecified location J01.90 ; Diarrhea, unspecified R19.7 ; Vomiting, unspecified R11.10 and Morbid obesity E66.01 [facility] [address] [facility] [id number] [address] [place] [address] Apr, [facility] [address] [place] [id number] [address] [place] [phone] Apr, Anemia due to other cause, n ot classified D64.89 and D-dimer, elevated R79.89 [place] [address] [facility] [id number] [address] [place] [address] Apr, [facility] [address] [id number] [address] [place] [address] Apr, [place] [address] [facility] [id number] [address] [place] [address] Mar, Anemia due to other cause, n ot classified D64.89 and D-dimer, elevated R79.89 [place] [address] [facility] [id number] [address] [place] [address] Mar, Leg edema, right R60.0 ; Hig h risk medication use Z79.899 and Morbid obesity E66.01 [place] [address] [place] [id number] [address] [place] [address] Mar, BMI 50.0-59.9, adult Z68.43 [place] [address] [place] [id number] [address] [place] [address] Mar, [place] [address] [place] [id number] [address] [place] [address] January, Uncontrolled type 2 diabetes mellitus with hyperglycemia E11.65 ; RLS (restless legs syndrome) G25.81 and Morbid obesity E66.01 [place] [address] [facility] [id number] [address] [place] [address] Oct, Lipoma of right lower extrem ity D17.23 [place] [address] [id number] [address] [place] [address] Oct, Lipoma of right lower extrem ity D17.23 [place] [address] [facility] [id number] [address] [place] [address] Sep, [place] [address] [facility] [id number] [address] [place] [address] Sep, [facility] [address] [id number] [address] [place] [phone] Sep, [facility] [address] [id number] [address] [place] [address] Sep, [facility] [address] [id number] [address] [place] [address] Sep, [facility] [address] [id number] [address] [place] [address] Aug, Uncontrolled type 2 diabetes mellitus with hyperglycemia E11.65 ; Morbid obesity due to excess calories E66.01 ; Lipoma of torso D17.1 and BMI 50.0-59.9, adult Z68.43 [facility] [address] [id number] [address] [place] [address] Jun, Encounter for immunization Z 23 [facility] [address] [id number] [address] [place] [phone] Jul, [facility] [address] [id number] [address] [place] [id number] Jun, Encounter for immunization Z 23 [facility] [address] [id number] [address] [place] [address] May, [facility] [address] [id number] [address] [place] [address] Jun, Encounter for immunization Z 23 [facility] [address] [id number] [address] [place] [id number] May, [facility] [address] [id number] [address] [place] [id number] May, [facility] [address] [id number] [address] [place] [address] Apr, [facility] [address] [id number] [address] [place] [address] Feb, [facility] [address] [id number] [address] [place] [phone] Feb, [facility] [address] [id number] [address] [place] [address], [place] [address] Feb, [facility] [address] [id number] [address] [place] [address], [place] [address] January, [facility] [address] [id number] [address] [place] [address], [place] [address] January, [facility] [address] [id number] [address] [place] [address], [place] [address] Dec, [facility] [address] [id number] [address] [place] [address], [place] [address] Dec, [facility] [address] [id number] [address] [place] [address], [place] [address] Nov, [facility] [address] [id number] [address] [place] [address], [place] [address] Nov, [facility] [address] [id number] [address] [place] [address], [place] [address] Nov, [facility] [address] [id number] [address] [place] [address], [place] [address] Nov, [facility] [address] [id number] [address] [place] [address], [place] [address] Nov, [facility] [address] [id number] [address] [place] [address], [place] [address] Nov, [facility] [address] [id number] [address] [place] [address], [place] [address] Nov, [facility] [address] [id number] [address] [place] [address], [place] [address] Oct, [facility] [address] [id number] [address] [place] [address], [place] [address] Oct, [facility] [address] [id number] [address] [place] [address], [place] [address] Oct, [facility] [address] [id number] [address] [place] [address], [place] [address] Oct, [facility] [address] [id number] [address] [place] [address], [place] [address] Oct, [facility] [address] [id number] [address] [place] [address], [place] [address] Sep, [facility] [address] [id number] [address] [place] [address], [place] [address] Sep, [facility] [address] [id number] [address] [place] [address], [place] [address] Sep, [facility] [address] [id number] [address] [place] [address], [place] [address] Sep, [facility] [address] [id number] [address] [place] [address], [place] [address] Sep, [facility] [address] [id number] [address] [place] [address], [place] [address] Sep, [facility] [address] [id number] [address] [place] [address], [place] [address] Sep, [facility] [address] [id number] [address] [place] [address], [place] [address] Sep, [facility] [address] [id number] [address] [place] [address], [place] [address] Sep, [facility] [address] [id number] [address] [place] [address], [place] [address] Sep, [facility] [address] [id number] [address] [place] [address], [place] [address] Aug, [facility] [address] [id number] [address] [place] [address], [place] [address] Aug, [facility] [address] [id number] [address] [place] [address], [place] [address] Aug, [facility] [address] [id number] [address] [place] [address], [place] [address] Aug, [facility] [address] [id number] [facility] [place] [address] Aug, [facility] [address] [id number] [address] [place] [address], [place] [address] Aug, [facility] [address] [id number] [address] [place] [address], [place] [address] Aug, [facility] [address] [id number] [address] [place] [address], [place] [address] Aug, [facility] [address] [id number] [address] [place] [address], [place] [address] Aug, [facility] [address] [id number] [address] [place] [address], [place] [address] Aug, [facility] [address] [id number] [address] [place] [address], [place] [address] Aug, [facility] [address] [id number] [address] [place] [address], [place] [address] Aug, [facility] [address] [id number] [address] [place] [address], [place] [address] Aug, [facility] [address] [id number] [address] [place] [address], [place] [address] Aug, [facility] [address] [id number] [address] [place] [address], [place] [address] 17 Aug, 2014 [facility] [address] [id number] [address] [place] [address], [place] [address] 17 Aug, 2014 [facility] [address] [id number] [address] [place] [address], [place] [address] 16 Aug, 2014 [facility] [address] [id number] [address] [place] [address], [place] [address] 16 Aug, 2014 [facility] [address] [id number] [address] [place] [address], [place] [address] 12 Aug, 2014 [facility] [address] [id number] [address] [place] [address], [place] [address] 12 Aug, 2014 [facility] [address] [id number] [address] [place] [address], [place] [address] 08 Aug, 2014 [facility] [address] [id number] [address] [place] [address], [place] [address] 08 Aug, 2014 [facility] [address] [id number] [address] [place] [address], [place] [address] 05 Aug, 2014 [facility] [address] [id number] [address] [place] [address], [place] [address] 05 Aug, 2014 [facility] [address] [id number] [address] [place] [address], [place] [address] Jul, [facility] [address] [id number] [address] [place] [address], [place] [address] Jul, [facility] [address] [id number] [address] [place] [address], [place] [address] Jun, [facility] [address] [id number] [address] [place] [address], [place] [address] 27 Jun, 2014 [facility] [address] [id number] [address] [place] [address], [place] [address] 17 Jun, 2014 [facility] [address] [id number] [address] [place] [address], [place] [address] 17 Jun, 2014 [facility] [address] [id number] [address] [place] [address], [place] [address] 15 Jun, 2014 [facility] [address] [id number] [address] [place] [address], [place] [address] 15 Jun, 2014 [facility] [address] [id number] [address] [place] [address], [place] [address] 14 Jun, 2014 [facility] [address] [id number] [address] [place] [address], [place] [address] 14 Jun, 2014 [facility] [address] [id number] [address] [place] [address], [place] [address] 13 Jun, 2014 [facility] [address] [id number] [address] [place] [address], [place] [address] Jun, [facility] [address] [id number] [address] [place] [address], [place] [address] Jun, [facility] [address] [id number] [address] [place] [address], [place] [address] Jun, [facility] [address] [id number] [address] [place] [address], [place] [address] Jun, [facility] [address] [id number] [address] [place] [address], [place] [address] Jun, [facility] [address] [id number] [address] [place] [address], [place] [address] May, [facility] [address] [id number] [address] [place] [address], [place] [address] May, [facility] [address] [id number] [address] [place] [address], [place] [address] May, [facility] [address] [id number] [address] [place] [address], [place] [address] May, [facility] [address] [id number] [address] [place] [address], [place] [address] May, [facility] [address] [id number] [address] [place] [address], [place] [address] May, [facility] [address] [id number] [address] [place] [address], [place] [address] May, [facility] [address] [id number] [address] [place] [address], [place] [address] May, [facility] [address] [id number] [address] [place] [address], [place] [address] Apr, [facility] [address] [id number] [address] [place] [address], [place] [address] Apr, [facility] [address] [id number] [address] [place] [address], [place] [address] Apr, [facility] [address] [id number] [address] [place] [address], [place] [address] Apr, [facility] [address] [id number] [address] [place] [address], [place] [address] Apr, [facility] [address] [id number] [address] [place] [address], [place] [address] Apr, [facility] [address] [id number] [address] [place] [address], [place] [address] Apr, [facility] [address] [id number] [address] [place] [address], [place] [address] Apr, [facility] [address] [id number] [address] [place] [address], [place] [address] Apr, [facility] [address] [id number] [address] [place] [address], [place] [address] Mar, [facility] [address] [id number] [address] [place] [address], [place] [address] Mar, [facility] [address] [id number] [address] [place] [address], [place] [address] Mar, [facility] [address] [id number] [address] [place] [address], [place] [address] Feb, [facility] [address] [id number] [address] [place] [address], [place] [address] Feb, [facility] [address] [id number] [address] [place] [address], [place] [address] Feb, [facility] [address] [id number] [address] [place] [address], [place] [address] Feb, [facility] [address] [id number] [address] [place] [address], [place] [address] Feb, [facility] [address] [id number] [address] [place] [address], [place] [address] Feb, [facility] [address] [id number] [facility] [place] [address] 16 Feb, 2014 [facility] [address] [id number] [facility] [place] [address] Feb, [facility] [address] [id number] [facility] [place] [address] Feb, [facility] [address] [id number] [address] [place] [address], [place] [address] Feb, [facility] [address] [id number] [facility] [place] [address] Feb, [facility] [address] [id number] [address] [place] [address], [place] [address] Feb, [facility] [address] [id number] [address] [place] [address], [place] [address] Feb, [facility] [address] [id number] [address] [place] [address], [place] [address] Feb, [facility] [address] [id number] [address] [place] [address], [place] [address] Feb, [facility] [address] [id number] [address] [place] [address], [place] [address] Feb, [facility] [address] [id number] [address] [place] [address], [place] [address] January, [facility] [address] [id number] [address] [place] [address], [place] [address] January, [facility] [address] [id number] [address] [place] [address], [place] [address] January, [facility] [address] [id number] [address] [place] [address], [place] [address] January, [facility] [address] [id number] [address] [place] [address], [place] [address] January, [facility] [address] [id number] [address] [place] [address], [place] [address] January, [facility] [address] [id number] [address] [place] [address], [place] [address] January, [facility] [address] [id number] [address] [place] [address], [place] [address] January, [facility] [address] [id number] [address] [place] [address], [place] [address] January, [facility] [address] [id number] [address] [place] [address], [place] [address] January, [facility] [address] [id number] [address] [place] [address], [place] [address] January, [facility] [address] [id number] [address] [place] [address], [place] [address] January, [facility] [address] [id number] [address] [place] [address], [place] [address] January, [facility] [address] [id number] [address] [place] [address], [place] [address] January, [facility] [address] [id number] [address] [place] [address], [place] [address] January, [facility] [address] [id number] [address] [place] [address], [place] [address] January, [facility] [address] [id number] [address] [place] [address], [place] [address] January, [facility] [address] [id number] [address] [place] [address], [place] [address] January, [facility] [address] [id number] [address] [place] [address], [place] [address] January, [facility] [address] [id number] [address] [place] [address], [place] [address] January, [facility] [address] [id number] [address] [place] [address], [place] [address] January, [facility] [address] [id number] [address] [place] [address], [place] [address] January, [facility] [address] [id number] [address] [place] [address], [place] [address] January, [facility] [address] [id number] [address] [place] [address], [place] [address] January, [facility] [address] [id number] [address] [place] [address], [place] [address] January, [facility] [address] [id number] [address] [place] [address], [place] [address] January, [facility] [address] [id number] [address] [place] [address], [place] [address] Dec, [facility] [address] [id number] [address] [place] [address], [place] [address] Dec, [facility] [address] [id number] [address] [place] [address], [place] [address] Dec, [facility] [address] [id number] [address] [place] [address], [place] [address] Dec, [facility] [address] [id number] [address] [place] [address], [place] [address] Dec, [facility] [address] [id number] [address] [place] [address], [place] [address] Dec, [facility] [address] [id number] [address] [place] [address], [place] [address] Dec, [facility] [address] [id number] [address] [place] [address], [place] [address] Dec, [facility] [address] [id number] [address] [place] [address], [place] [address] Dec, [facility] [address] [id number] [address] [place] [address], [place] [address] Dec, [facility] [address] [id number] [address] [place] [address], [place] [address] Dec, [facility] [address] [id number] [facility] [place] [address] Dec, [facility] [address] [id number] [facility] [place] [address] Dec, [facility] [address] [id number] [facility] [place] [address] Dec, [facility] [address] [id number] [address] [place] [address], [place] [address] Dec, [facility] [address] [id number] [address] [place] [address], [place] [address] Dec, [facility] [address] [id number] [address] [place] [address], [place] [address] Dec, [facility] [address] [id number] [address] [place] [address], [place] [address] Dec, [facility] [address] [id number] [address] [place] [address], [place] [address] Dec, [facility] [address] [id number] [address] [place] [address], [place] [address] Dec, [facility] [address] [id number] [address] [place] [address], [place] [address] Dec, [facility] [address] [id number] [address] [place] [address], [place] [address] Dec, [facility] [address] [id number] [address] [place] [address], [place] [address] Nov, [facility] [address] [id number] [address] [place] [address], [place] [address] 31 Nov, 2013 [facility] [address] [id number] [address] [place] [address], [place] [address] Nov, [facility] [address] [id number] [address] [place] [address], [place] [address] Nov, [facility] [address] [id number] [address] [place] [address], [place] [address] 24 Nov, 2013 [facility] [address] [id number] [facility] [place] [address] 24 Nov, 2013 [facility] [address] [id number] [facility] [place] [address] 22 Nov, 2013 [facility] [address] [id number] [facility] [place] [address] 22 Nov, 2013 [facility] [address] [id number] [address] [place] [address], [place] [address] 18 Nov, 2013 [facility] [address] [id number] [address] [place] [address], [place] [address] 18 Nov, 2013 [facility] [address] [id number] [address] [place] [address], [place] [address] 18 Nov, 2013 [facility] [address] [id number] [address] [place] [address], [place] [address] 18 Nov, 2013 [facility] [address] [id number] [address] [place] [address], [place] [address] 14 Nov, 2013 [facility] [address] [id number] [address] [place] [address], [place] [address] 14 Nov, 2013 [facility] [address] [id number] [address] [place] [address], [place] [address] Nov, [facility] [address] [id number] [address] [place] [address], [place] [address] Nov, [facility] [address] [id number] [address] [place] [address], [place] [address] Oct, [facility] [address] [id number] [address] [place] [address], [place] [address] Oct, [facility] [address] [id number] [address] [place] [address], [place] [address] Oct, [facility] [address] [id number] [address] [place] [address], [place] [address] Oct, [facility] [address] [id number] [address] [place] [address], [place] [address] Oct, [facility] [address] [id number] [address] [place] [address], [place] [address] Oct, [facility] [address] [id number] [address] [place] [address], [place] [address] Oct, [facility] [address] [id number] [address] [place] [address], [place] [address] Oct, [facility] [address] [id number] [address] [place] [address], [place] [address] Oct, [facility] [address] [id number] [address] [place] [address], [place] [address] Oct, [facility] [address] [id number] [address] [place] [address], [place] [address] Oct, [facility] [address] [id number] [address] [place] [address], [place] [address] Oct, [facility] [address] [id number] [address] [place] [address], [place] [address] Oct, [facility] [address] [id number] [address] [place] [address], [place] [address] Oct, [facility] [address] [id number] [address] [place] [address], [place] [address] Oct, [facility] [address] [id number] [address] [place] [address], [place] [address] Sep, [facility] [address] [id number] [address] [place] [address], [place] [address] Sep, [facility] [address] [id number] [address] [place] [address], [place] [address] Sep, [facility] [address] [id number] [address] [place] [address], [place] [address] Sep, [facility] [address] [id number] [address] [place] [address], [place] [address] Sep, [facility] [address] [id number] [address] [place] [address], [place] [address] Sep, [facility] [address] [id number] [address] [place] [address], [place] [address] Sep, [facility] [address] [id number] [address] [place] [address], [place] [address] Sep, [facility] [address] [id number] [address] [place] [address], [place] [address] Sep, [facility] [address] [id number] [address] [place] [address], [place] [address] Sep, [facility] [address] [id number] [address] [place] [address], [place] [address] Sep, [facility] [address] [id number] [address] [place] [address], [place] [address] Sep, [facility] [address] [id number] [address] [place] [address], [place] [address] Sep, [facility] [address] [id number] [address] [place] [address], [place] [address] Aug, [facility] [address] [id number] [address] [place] [address], [place] [address] 30 Aug, 2013 [facility] [address] [id number] [address] [place] [address], [place] [address] 24 Aug, 2013 [facility] [address] [id number] [address] [place] [address], [place] [address] 24 Aug, 2013 [facility] [address] [id number] [address] [place] [address], [place] [address] 17 Aug, 2013 [facility] [address] [id number] [address] [place] [address], [place] [address] 17 Aug, 2013 [facility] [address] [id number] [address] [place] [address], [place] [address] 16 Aug, 2013 [facility] [address] [id number] [address] [place] [address], [place] [address] 16 Aug, 2013 [facility] [address] [id number] [address] [place] [address], [place] [address] 12 Aug, 2013 [facility] [address] [id number] [address] [place] [address], [place] [address] 12 Aug, 2013 [facility] [address] [id number] [address] [place] [address], [place] [address] 10 Aug, 2013 [facility] [address] [id number] [address] [place] [address], [place] [address] 10 Aug, 2013 [facility] [address] [id number] [address] [place] [address], [place] [address] 02 Aug, 2013 [facility] [address] [id number] [address] [place] [address], [place] [address] 02 Aug, 2013 [facility] [address] [id number] [address] [place] [address], [place] [address] 19 Jul, 2013 [facility] [address] [id number] [address] [place] [address], [place] [address] 19 Jul, 2013 [facility] [address] [id number] [address] [place] [address], [place] [address] 18 Jul, 2013 [facility] [address] [id number] [address] [place] [address], [place] [address] 18 Jul, 2013 [facility] [address] [id number] [address] [place] [address], [place] [address] 14 Jul, 2013 [facility] [address] [id number] [address] [place] [address], [place] [address] 14 Jul, 2013 [facility] [address] [id number] [address] [place] [address], [place] [address] 14 Jul, 2013 [facility] [address] [id number] [address] [place] [address], [place] [address] 14 Jul, 2013 [facility] [address] [id number] [address] [place] [address], [place] [address] 07 Jul, 2013 [facility] [address] [id number] [address] [place] [address], [place] [address] 07 Jul, 2013 [facility] [address] [id number] [address] [place] [address], [place] [address] Jul, [facility] [address] [id number] [address] [place] [address], [place] [address] Jul, [facility] [address] [id number] [address] [place] [address], [place] [address] Jul, [facility] [address] [id number] [address] [place] [address], [place] [address] Jul, [facility] [address] [id number] [address] [place] [address], [place] [address] Jun, [facility] [address] [id number] [address] [place] [address], [place] [address] Jun, [facility] [address] [id number] [address] [place] [address] 15 Jun, 2013 [facility] [address] [id number] [address] [place] [address], [place] [address] 15 Jun, 2013 [facility] [address] [id number] [address] [place] [address] 14 Jun, 2013 [facility] [address] [id number] [address] [place] [address], [place] [address] 24 May, 2013 [facility] [address] [id number] [address] [place] [address] 20 May, 2013 [facility] [address] [id number] [address] [place] [address], [place] [address] 20 May, 2013 [facility] [address] [id number] [address] [place] [address] 20 May, 2012 [facility] [address] [id number] [address] [place] [address], [place] [address] 19 May, 2012 [facility] [address] [id number] [address] [place] [address], [place] [address] 13 May, 2012 [facility] [address] [id number] [facility] [address] 12 May, 2012 [facility] [address] [id number] [address] [place] [address], [place] [address] 12 May, 2012 [facility] [address] [id number] [address] [place] [address], [place] [address] 11 May, 2012 [facility] [address] [id number] [address] [place] [address], [place] [address] 11 May, 2012 [facility] [address] [id number] [address] [place] [address], [place] [address] 11 May, 2012 [facility] [address] [id number] [address] [place] [address], [place] [address] 09 May, 2012 [facility] [address] [id number] [address] [place] [address], [place] [address] 05 May, 2012 [facility] [address] [id number] [address] [place] [address], [place] [address] 04 May, 2012 [facility] [address] [id number] [address] [place] [address], [place] [address] 03 May, 2012 [facility] [address] [id number] [address] [place] [address], [place] [address] Apr, [facility] [address] [id number] [address] [place] [address], [place] [address] Apr, [facility] [address] [id number] [address] [place] [address], [place] [address] Apr, [facility] [address] [id number] [address] [place] [address], [place] [address] Apr, [facility] [address] [id number] [address] [place] [address], [place] [address] Apr, [facility] [address] [id number] [address] [place] [address], [place] [address] Apr, [facility] [address] [id number] [address] [place] [address], [place] [address] Apr, [facility] [address] [id number] [address] [place] [address], [place] [address] Apr, [facility] [address] [id number] [address] [place] [address], [place] [address] Apr, [facility] [address] [id number] [address] [place] [address], [place] [address] Mar, [facility] [address] [id number] [address] [place] [address], [place] [address] Mar, [facility] [address] [id number] [address] [place] [address], [place] [address] Mar, [facility] [address] [id number] [address] [place] [address], [place] [address] Mar, [facility] [address] [id number] [address] [place] [address], [place] [address] Mar, [facility] [address] [id number] [address] [place] [address], [place] [address] Mar, [facility] [address] [id number] [address] [place] [address], [place] [address] Mar, [facility] [address] [id number] [address] [place] [address], [place] [address] Mar, [facility] [address] [id number] [address] [place] [address], [place] [address] Mar, [facility] [address] [id number] [address] [place] [address], [place] [address] Mar, [facility] [address] [id number] [address] [place] [address], [place] [address] Mar, [facility] [address] [id number] [address] [place] [address], [place] [address] Feb, [facility] [address] [id number] [address] [place] [address], [place] [address] Feb, [facility] [address] [id number] [address] [place] [address], [place] [address] Feb, [facility] [address] [id number] [address] [place] [address], [place] [address] Feb, [facility] [address] [id number] [address] [place] [address], [place] [address] Feb, [facility] [address] [id number] [address] [place] [address], [place] [address] Feb, [facility] [address] [id number] [address] [place] [address], [place] [address] Feb, [facility] [address] [id number] [address] [place] [address], [place] [address] Feb, [facility] [address] [id number] [address] [place] [address], [place] [address] Feb, [facility] [address] [id number] [address] [place] [address], [place] [address] January, [facility] [address] [id number] [address] [place] [address], [place] [address] January, [facility] [address] [id number] [address] [place] [address], [place] [address] January, [facility] [address] [id number] [address] [place] [address], [place] [address] January, [facility] [address] [id number] [address] [place] [address], [place] [address] January, [facility] [address] [id number] [address] [place] [address], [place] [address] January, [facility] [address] [id number] [address] [place] [address], [place] [address] January, [facility] [address] [id number] [address] [place] [address], [place] [address] January, [facility] [address] [id number] [address] [place] [address], [place] [address] January, [facility] [address] [id number] [address] [place] [address], [place] [address] January, [facility] [address] [id number] [address] [place] [address], [place] [address] January, [facility] [address] [id number] [address] [place] [address], [place] [address] January, [facility] [address] [id number] [address] [place] [address], [place] [address] January, [facility] [address] [id number] [address] [place] [address], [place] [address] January, [facility] [address] [id number] [address] [place] [address], [place] [address] January, [facility] [address] [id number] [address] [place] [address], [place] [address] January, [facility] [address] [id number] [address] [place] [address], [place] [address] January, [facility] [address] [id number] [address] [place] [address], [place] [address] January, [facility] [address] [id number] [address] [place] [address], [place] [address] January, [facility] [address] [id number] [address] [place] [address], [place] [address] January, [facility] [address] [id number] [address] [place] [address], [place] [address] January, [facility] [address] [id number] [address] [place] [address], [place] [address] January, [facility] [address] [id number] [address] [place] [address], [place] [address] January, [facility] [address] [id number] [address] [place] [address], [place] [address] Dec, [facility] [address] [id number] [address] [place] [address], [place] [address] 18 Dec, 2012 [facility] [address] [id number] [address] [place] [address], [place] [address] 17 Dec, 2012 [facility] [address] [id number] [address] [place] [address], [place] [address] 16 Dec, 2012 [facility] [address] [id number] [address] [place] [address], [place] [address] Dec, [facility] [address] [id number] [address] [place] [address], [place] [address] Nov, [facility] [address] [id number] [address] [place] [address], [place] [address] Oct, [facility] [address] [id number] [address] [place] [address], [place] [address] Oct, [facility] [address] [id number] [address] [place] [address], [place] [address] Oct, [facility] [address] [id number] [address] [place] [address], [place] [address] Oct, [facility] [address] [id number] [address] [place] [address], [place] [address] Oct, [facility] [address] [id number] [address] [place] [address], [place] [address] Sep, [facility] [address] [id number] [address] [place] [address], [place] [address] Sep, [facility] [address] [id number] [address] [place] [address], [place] [address] Sep, [facility] [address] [id number] [address] [place] [address], [place] [address] Aug, [facility] [address] [id number] [address] [place] [address], [place] [address] Aug, [facility] [address] [id number] [address] [place] [address], [place] [address] Aug, [facility] [address] [id number] [address] [place] [address], [place] [address] Aug, [facility] [address] [id number] [address] [place] [address], [place] [address] Jul, [facility] [address] [id number] [address] [place] [address], [place] [address] Jul, [facility] [address] [id number] [address] [place] [address], [place] [address] Jul, [facility] [address] [id number] [address] [place] [address], [place] [address] Jul, [facility] [address] [id number] [address] [place] [address], [place] [address] Jul, [facility] [address] [id number] [address] [place] [address], [place] [address] Jul, [facility] [address] [id number] [address] [place] [address], [place] [address] Jun, [facility] [address] [id number] [address] [place] [address], [place] [address] Jun, [facility] [address] [id number] [address] [place] [address], [place] [address] Jun, [facility] [address] [id number] [address] [place] [address], [place] [address] Jun, [facility] [address] [id number] [address] [place] [address] Jun, [facility] [address] [id number] [address] [place] [address], [place] [address] Jun, [facility] [address] [id number] [address] [place] [address], [place] [address] Jun, [facility] [address] [id number] [address] [place] [address] Jun, [facility] [address] [id number] [address] [place] [address], [place] [address] Jun, [facility] [address] [id number] [address] [place] [address], [place] [address] Jun, [facility] [address] [id number] [address] [place] [address], [place] [address] May, [facility] [address] [id number] [address] [place] [address], [place] [address] May, [facility] [address] [id number] [address] [place] [address], [place] [address] May, [facility] [address] [id number] [address] [place] [address], [place] [address] Apr, [facility] [address] [id number] [address] [place] [address], [place] [address] Apr, [facility] [address] [id number] [address] [place] [address], [place] [address] Apr, [facility] [address] [id number] [address] [place] [address], [place] [address] Apr, [facility] [address] [id number] [address] [place] [address], [place] [address] Apr, [facility] [address] [id number] [address] [place] [address], [place] [address] Apr, [facility] [address] [id number] [address] [place] [address], [place] [address] Apr, [facility] [address] [id number] [address] [place] [address], [place] [address] Apr, [facility] [address] [id number] [address] [place] [address], [place] [address] Apr, [facility] [address] [id number] [address] [place] [address], [place] [address] Mar, [facility] [address] [id number] [address] [place] [address], [place] [address] Mar, [facility] [address] [id number] [address] [place] [address], [place] [address] Mar, [facility] [address] [id number] [address] [place] [address], [place] [address] Mar, [facility] [address] [id number] [address] [place] [address], [place] [address] Feb, [facility] [address] [id number] [address] [place] [address], [place] [address] Feb, [facility] [address] [id number] [address] [place] [address], [place] [address] Feb, [facility] [address] [id number] [address] [place] [address], [place] [address] January, [facility] [address] [id number] [address] [place] [address], [place] [address] January, [facility] [address] [id number] [address] [place] [address], [place] [address] January, [facility] [address] [id number] [address] [place] [address], [place] [address] January, [facility] [address] [id number] [address] [place] [address], [place] [address] January, [facility] [address] [id number] [address] [place] [address], [place] [address] Dec, [facility] [address] [id number] [address] [place] [address], [place] [address] Dec, [facility] [address] [id number] [address] [place] [address], [place] [address] 16 Dec, 2011 [facility] [address] [id number] [address] [place] [address], [place] [address] Oct, [facility] [address] [id number] [address] [place] [address], [place] [address] Oct, [facility] [address] [id number] [address] [place] [address], [place] [address] Oct, [facility] [address] [id number] [address] [place] [address], [place] [address] Sep, [facility] [address] [id number] [address] [place] [address], [place] [address] Sep, [facility] [address] [id number] [address] [place] [address], [place] [address] Aug, [facility] [address] [id number] [address] [place] [address], [place] [address] Jul, [facility] [address] [id number] [address] [place] [address], [place] [address] Jul, [facility] [address] [id number] [address] [place] [address], [place] [address] Mar, [facility] [address] [id number] [address] [place] [address], [place] [address] Aug, [facility] [address] [id number] [address] [place] [address], [place] [address] Jul, [facility] [address] [id number] [address] [place] [address], [place] [address] Jul, [facility] [address] [id number] [address] [place] [address], [place] [address] Jul, [facility] [address] [id number] [address] [place] [address], [place] [address] Jul, [facility] [address] [id number] [address] [place] [address], [place] [address] Jun, [facility] [address] [id number] [address] [place] [address], [place] [address] Jun, [facility] [address] [id number] [address] [place] [address], [place] [address] Apr, [facility] [address] [id number] [address] [place] [address], [place] [address] Aug, [facility] [address] [id number] [address] [place] [id number] 17 Jul, 2009 [facility] [address] [id number] [address] [place] [address] Jul, [facility] [address] [id number] [address] [place] [address] Jul, [facility] [address] [id number] [address] [place] [address] Jun, [facility] [address] [id number] [address] [place] [address] May, [facility] [address] [id number] [address] [place] [address] 14 Dec, 2008 [facility] [address] [id number] [address] [place] [address] Nov, [facility] [address] [id number] [address] [place] [address] Oct, [facility] [address] [id number] [address] [place] [address] Aug, [facility] [address] [id number] [address] [place] [address] Aug, [facility] [address] [id number] [address] [place] [address] Jun, IMMUNIZATIONS No Known Immunizations SOCIAL HISTORY Never Assessed REASON FOR VISIT PLAN OF CARE VITAL SIGNS MEDICATIONS Unknown Medications RESULTS No Results PROCEDURES Procedure Date Ordered Result Body Site US EXAM, PELVIC, COMPLETE April 20, 2012 INSTRUCTIONS MEDICATIONS ADMINISTERED No Known Medications MEDICAL [...] x 3 day s 04/2012 Hospitalization History [facility] [place]- Right wrist injury 03/29/2018
--- OUTSIDE RECORDS SUMMARY | 2020-04-09 00:41 | XMS REPORT ---
Author Author Kateryna Turner Doctor Organization [facility] Address Unknown Phone Unavailable Care Team Providers Care Hemodialysis Technician Name Role Phone Migration, Doctor Unavailable Unavailable PROBLEMS Type Condition ICD9-CM Code AMZ36-FM Code Onset Dates Condition S tatus SNOMED Code Problem Irregular menses N92.6 Active 801 87543 Problem Migraine with aura and without status migrainosu s, not intractable G43.109 Active 2528558 Problem Uncontrolled type 2 diabetes mellitus with hyperglycemia E11.65 Active 479933669 Problem Morbid obesity due to excess calories E66.01 Active 735974715 Problem RLS (restless legs syndrome) G25.81 A ctive 55525528 Problem Morbid obesity E66.01 Active 24643 6002 ALLERGIES No Information ENCOUNTERS Encounter Location Date Diagnosis [facility] [address] [id number] [address] [place] [address] 09 Mar, 2020 Dysuria R30.0 and Nocturnal confusion R41.0 [facility] [address] [address] 09 Mar, 2020 [facility] [address] [id number] [address] [place] [address] Mar, [facility] [id number] [place] [address] 30 Feb, 2020 [facility] [address] [id number] [address] [place] [address] 15 Feb, 2020 Encounter for screening labo ratory testing for COVID-19 virus Z11.59 [facility] [address] [id number] [address] [place] [address] 08 Feb, 2020 [facility] [address] [id number] [address] [place] [address] January, [facility] [address] [id number] [address] [place] [address] January, BMI 50.0-59.9, adult Z68.43 and Vomiting, unspecified R11.10 [facility] [address] [address] January, [facility] [address] [facility] [id number] [address] [place] [address] Dec, [facility] [address] [facility] [id number] [address] Dec, [facility] [address] [facility] [id number] [place] [address] Dec, Uncontrolled type 2 diabetes mellitus with hyperglycemia E11.65 [facility] [address] [id number] [address] [place] [address] 07 Dec, 2019 [facility] [address] [address] 06 Dec, 2019 [facility] [address] [id number] [address] [place] [address] Dec, [facility] [address] [id number] [address] [place] [address] 30 Nov, 2019 [facility] [address] [id number] [address] [place] [address] Nov, [facility] [address] [address] Nov, [facility] [address] [id number] [place] [address] Nov, RLS (restless legs syndrome) G25.81 [facility] [address] [id number] [address] [place] [address] 15 Oct, 2019 [facility] [address] [facility] [id number] [address] [place] [address] 09 Oct, 2019 Influenza J11.1 [facility] [address] [address] 16 Sep, 2019 [facility] [address] [id number] [address] [place] [address] 14 Sep, 2019 [facility] [address] [id number] [address] [place] [address] 14 Sep, 2019 [facility] [address] [id number] [address] [place] [address] 13 Sep, 2019 [facility] [address] [id number] [address] [place] [address] 10 Sep, 2019 Pneumonia of left lower lobe due to infectious organism J18.9 and Migraine with aura and without status migrainosus, not intractable G43.109 [facility] [address] [id number] [address] [place] [address] 10 Sep, 2019 [facility] [address] [id number] [address] [place] [address] 10 Sep, 2019 [facility] [address] [id number] [address] [place] [address] 08 Sep, 2019 [facility] [address] [id number] [address] [place] [address] 08 Sep, 2019 [facility] [address] [id number] [address] [place] [address] 08 Sep, 2019 Pneumonia of left lower lobe due to infectious organism J18.9 and Migraine with aura and without status migrainosus, not intractable G43.109 [facility] [address] [id number] [address] [place] [address] Aug, Irregular menses N92.6 ; Wel l woman exam Z01.419 ; Pelvic cramping R10.2 and Left breast lump N63.20 [facility] [address] [id number] [address] [place] [address] Aug, [facility] [address] [id number] [address] [place] [address] Aug, Well woman exam Z01.419 ; Le ft breast lump N63.20 ; Irregular menses N92.6 ; Encounter for immunization Z23 ; Pelvic cramping R10.2 and Screening for cervical cancer Z12.4 [facility] [address] [address] 09 Aug, 2019 [facility] [id number] [place] [address] Aug, [facility] [id number] [place] [address] Aug, [facility] [id number] [place] [address] Jul, [facility] [id number] [place] [address] Jun, [facility] [id number] [place] [address] Jun, [facility] [id number] [place] [address] Jun, [facility] [address] [address] Jun, BMI 50.0-59.9, adult Z68.43 [facility] [id number] [place] [address] Jun, [facility] [address] [id number] [address] [place] [address] May, Acute non-recurrent sinusiti s, unspecified location J01.90 ; Diarrhea, unspecified R19.7 ; Vomiting, unspecified R11.10 and Morbid obesity E66.01 [facility] [id number] [place] [address] Apr, [facility] [address] [id number] [address] [place] [address] Apr, Anemia due to other cause, n ot classified D64.89 and D-dimer, elevated R79.89 [id number] [facility] [id number] [address] [place] [address] Apr, [facility] [address] [facility] [id number] [address] [place] [address] Apr, [facility] [address] [facility] [id number] [address] [place] [address] Mar, Anemia due to other cause, n ot classified D64.89 and D-dimer, elevated R79.89 [address] [facility] [id number] [address] [place] [address] Mar, Leg edema, right R60.0 ; Hig h risk medication use Z79.899 and Morbid obesity E66.01 [address] [id number] [address] [place] [address] Mar, BMI 50.0-59.9, adult Z68.43 [address] [id number] [address] [place] [address] Mar, [address] [id number] [address] [place] [address] January, Uncontrolled type 2 diabetes mellitus with hyperglycemia E11.65 ; RLS (restless legs syndrome) G25.81 and Morbid obesity E66.01 [address] [address] [id number] [address] [place] [address] Oct, Lipoma of right lower extrem ity D17.23 [address] [address] [facility] [id number] [address] [place] [address] Oct, Lipoma of right lower extrem ity D17.23 [address] [place] [address] [id number] [address] [place] [address] Sep, [address] [facility] [id number] [address] [place] [address] Sep, [address] [id number] [address] [place] [address] Sep, [facility] [address] [id number] [address] [place] [address] Sep, [facility] [address] [id number] [address] [place] [address] Sep, [facility] [address] [facility] [id number] [address] [place] [address] Aug, Uncontrolled type 2 diabetes mellitus with hyperglycemia E11.65 ; Morbid obesity due to excess calories E66.01 ; Lipoma of torso D17.1 and BMI 50.0-59.9, adult Z68.43 [facility] [address] [id number] [address] [place] [address] Jun, Encounter for immunization Z 23 [facility] [address] [id number] [address] [place] [address] Jul, [facility] [address] [id number] [address] [place] [address] Jun, Encounter for immunization Z 23 [facility] [address] [id number] [address] [place] [address] May, [facility] [address] [id number] [address] [place] [address] Jun, Encounter for immunization Z 23 [facility] [address] [id number] [address] [place] [address] May, [facility] [address] [id number] [address] [place] [address] May, [facility] [address] [id number] [address] [place] [address] Apr, [facility] [address] [id number] [address] [place] [address] Feb, [facility] [address] [id number] [address] [place] [address] Feb, [facility] [address] [id number] [address] [place] [address] Feb, [facility] [address] [id number] [address] [place] [address], [place] [address] January, [facility] [address] [id number] [address] [place] [address], [place] [address] January, [facility] [address] [id number] [address] [place] [address], [place] [address] Dec, [facility] [address] [id number] [address] [place] [address], [place] [address] Dec, [facility] [address] [id number] [address] [place] [address], [place] [address] Nov, [facility] [address] [id number] [address] [place] [address], [place] [address] Nov, [facility] [address] [id number] [address] [place] [address], [place] [address] Nov, [facility] [address] [id number] [address] [place] [address], [place] [address] Nov, [facility] [address] [id number] [address] [place] [address], [place] [address] Nov, [facility] [address] [id number] [address] [place] [address], [place] [address] Nov, [facility] [address] [id number] [address] [place] [address], [place] [address] Nov, [facility] [address] [id number] [address] [place] [address], [place] [address] Oct, [facility] [address] [id number] [address] [place] [address], [place] [address] Oct, [facility] [address] [id number] [address] [place] [address], [place] [address] Oct, [facility] [address] [id number] [address] [place] [address] Oct, [facility] [address] [id number] [address] [place] [address], [place] [address] Oct, [facility] [address] [id number] [address] [place] [address], [place] [address] Sep, [facility] [address] [id number] [address] [place] [address], [place] [address] Sep, [facility] [address] [id number] [address] [place] [address], [place] [address] Sep, [facility] [address] [id number] [address] [place] [address], [place] [address] Sep, [facility] [address] [id number] [address] [place] [address], [place] [address] Sep, [facility] [address] [id number] [address] [place] [address], [place] [address] Sep, [facility] [address] [id number] [address] [place] [address], [place] [address] Sep, [facility] [address] [id number] [address] [place] [address], [place] [address] Sep, [facility] [address] [id number] [address] [place] [address], [place] [address] Sep, [facility] [address] [id number] [address] [place] [address], [place] [address] Sep, [facility] [address] [id number] [address] [place] [address], [place] [address] Aug, [facility] [address] [id number] [address] [place] [address], [place] [address] Aug, [facility] [address] [id number] [address] [place] [address], [place] [address] Aug, [facility] [address] [id number] [address] [place] [address], [place] [address] Aug, [facility] [address] [id number] [address] [place] [address], [place] [address] Aug, [facility] [address] [id number] [address] [place] [address], [place] [address] Aug, [facility] [address] [id number] [address] [place] [address], [place] [address] Aug, [facility] [address] [id number] [address] [place] [address], [place] [address] Aug, [facility] [address] [id number] [address] [place] [address], [place] [address] Aug, [facility] [address] [id number] [address] [place] [address], [place] [address] Aug, [facility] [address] [id number] [address] [place] [address], [place] [address] Aug, [facility] [address] [id number] [address] [place] [address], [place] [address] Aug, [facility] [address] [id number] [address] [place] [address], [place] [address] Aug, [facility] [address] [id number] [address] [place] [address], [place] [address] Aug, [facility] [address] [id number] [address] [place] [address], [place] [address] Aug, [facility] [address] [id number] [address] [place] [address], [place] [address] Aug, [facility] [address] [id number] [address] [place] [address], [place] [address] 16 Aug, 2014 [facility] [address] [id number] [address] [place] [address], [place] [address] Aug, [facility] [address] [id number] [address] [place] [address], [place] [address] Aug, [facility] [address] [id number] [address] [place] [address], [place] [address] Aug, [facility] [address] [id number] [address] [place] [address], [place] [address] 08 Aug, 2014 [facility] [address] [id number] [address] [place] [address], [place] [address] 08 Aug, 2014 [facility] [address] [id number] [address] [place] [address], [place] [address] 05 Aug, 2014 [facility] [address] [id number] [address] [place] [address], [place] [address] 05 Aug, 2014 [facility] [address] [id number] [address] [place] [address], [place] [address] Jul, [facility] [address] [id number] [address] [place] [address], [place] [address] Jul, [facility] [address] [id number] [address] [place] [address], [place] [address] Jun, [facility] [address] [id number] [address] [place] [address], [place] [address] 27 Jun, 2014 [facility] [address] [id number] [address] [place] [address], [place] [address] 17 Jun, 2014 [facility] [address] [id number] [address] [place] [address], [place] [address] 17 Jun, 2014 [facility] [address] [id number] [address] [place] [address], [place] [address] 15 Jun, 2014 [facility] [address] [id number] [address] [place] [address], [place] [address] 15 Jun, 2014 [facility] [address] [id number] [address] [place] [address], [place] [address] 14 Jun, 2014 [facility] [address] [id number] [address] [place] [address], [place] [address] 14 Jun, 2014 [facility] [address] [id number] [address] [place] [address], [place] [address] 13 Jun, 2014 [facility] [address] [id number] [address] [place] [address], [place] [address] Jun, [facility] [address] [id number] [address] [place] [address], [place] [address] Jun, [facility] [address] [id number] [address] [place] [address], [place] [address] Jun, [facility] [address] [id number] [address] [place] [address], [place] [address] Jun, [facility] [address] [id number] [address] [place] [address], [place] [address] Jun, [facility] [address] [id number] [address] [place] [address], [place] [address] May, [facility] [address] [id number] [address] [place] [address], [place] [address] May, [facility] [address] [id number] [address] [place] [address], [place] [address] May, [facility] [address] [id number] [address] [place] [address], [place] [address] May, [facility] [address] [id number] [address] [place] [address], [place] [address] May, [facility] [address] [id number] [address] [place] [address], [place] [address] May, [facility] [address] [id number] [address] [place] [address], [place] [address] May, [facility] [address] [id number] [address] [place] [address], [place] [address] May, [facility] [address] [id number] [address] [place] [address], [place] [address] Apr, [facility] [address] [id number] [address] [place] [address], [place] [address] Apr, [facility] [address] [id number] [address] [place] [address], [place] [address] Apr, [facility] [address] [id number] [address] [place] [address], [place] [address] Apr, [facility] [address] [id number] [facility] [address] Apr, [facility] [address] [id number] [address] [place] [address], [place] [address] Apr, [facility] [address] [id number] [address] [place] [address], [place] [address] Apr, [facility] [address] [id number] [address] [place] [address], [place] [address] Apr, [facility] [address] [id number] [address] [place] [address], [place] [address] Apr, [facility] [address] [id number] [address] [place] [address], [place] [address] Mar, [facility] [address] [id number] [address] [place] [address], [place] [address] Mar, [facility] [address] [id number] [address] [place] [address], [place] [address] Mar, [facility] [address] [id number] [address] [place] [address], [place] [address] Feb, [facility] [address] [id number] [address] [place] [address], [place] [address] Feb, [facility] [address] [id number] [address] [place] [address], [place] [address] Feb, [facility] [address] [id number] [address] [place] [address], [place] [address] Feb, [facility] [address] [id number] [address] [place] [address], [place] [address] Feb, [facility] [address] [id number] [address] [place] [address], [place] [address] Feb, [facility] [address] [id number] [address] [place] [address], [place] [address] 16 Feb, 2014 [facility] [address] [id number] [facility] [address] Feb, [facility] [address] [id number] [facility] [address] Feb, [facility] [address] [id number] [facility] [address] Feb, [facility] [address] [id number] [facility] [address] Feb, [facility] [address] [id number] [address] [place] [address], [place] [address] Feb, [facility] [address] [id number] [address] [place] [address], [place] [address] Feb, [facility] [address] [id number] [address] [place] [address], [place] [address] Feb, [facility] [address] [id number] [address] [place] [address], [place] [address] Feb, [facility] [address] [id number] [address] [place] [address], [place] [address] Feb, [facility] [address] [id number] [address] [place] [address], [place] [address] January, [facility] [address] [id number] [address] [place] [address], [place] [address] January, [facility] [address] [id number] [address] [place] [address], [place] [address] January, [facility] [address] [id number] [address] [place] [address], [place] [address] January, [facility] [address] [id number] [address] [place] [address], [place] [address] January, [facility] [address] [id number] [address] [place] [address], [place] [address] January, [facility] [address] [id number] [address] [place] [address], [place] [address] January, [facility] [address] [id number] [facility] [address] January, [facility] [address] [id number] [facility] [address] January, [facility] [address] [id number] [facility] [address] January, [facility] [address] [id number] [address] [place] [address], [place] [address] January, [facility] [address] [id number] [facility] [address] January, [facility] [address] [id number] [address] [place] [address], [place] [address] January, [facility] [facility] [address] [id number] [address] [place] [address], [place] [address] January, [facility] [address] [id number] [address] [place] [address], [place] [address] January, [facility] [address] [id number] [address] [place] [address], [place] [address] January, [facility] [address] [id number] [address] [place] [address], [place] [address] January, [facility] [address] [id number] [address] [place] [address], [place] [address] January, [facility] [address] [id number] [address] [place] [address], [place] [address] January, [facility] [address] [id number] [address] [place] [address], [place] [address] January, [facility] [address] [id number] [address] [place] [address], [place] [address] January, [facility] [address] [id number] [address] [place] [address], [place] [address] January, [facility] [address] [id number] [facility] [address] January, [facility] [address] [id number] [address] [place] [address], [place] [address] January, [facility] [address] [id number] [address] [place] [address], [place] [address] January, [facility] [address] [id number] [address] [place] [address], [place] [address] January, [facility] [address] [id number] [address] [place] [address], [place] [address] Dec, [facility] [address] [id number] [address] [place] [address], [place] [address] Dec, [facility] [address] [id number] [address] [place] [address], [place] [address] Dec, [facility] [address] [id number] [address] [place] [address], [place] [address] Dec, [facility] [address] [id number] [address] [place] [address], [place] [address] Dec, [facility] [address] [id number] [address] [place] [address], [place] [address] Dec, [facility] [address] [id number] [address] [place] [address], [place] [address] Dec, [facility] [address] [id number] [address] [place] [address], [place] [address] Dec, [facility] [address] [id number] [address] [place] [address], [place] [address] Dec, [facility] [address] [id number] [address] [place] [address], [place] [address] Dec, [facility] [address] [id number] [address] [place] [address], [place] [address] Dec, [facility] [address] [id number] [address] [place] [address], [place] [address] Dec, [facility] [address] [id number] [address] [place] [address], [place] [address] Dec, [facility] [address] [id number] [address] [place] [address], [place] [address] Dec, [facility] [address] [id number] [address] [place] [address], [place] [address] Dec, [facility] [address] [id number] [address] [place] [address], [place] [address] Dec, [facility] [address] [id number] [address] [place] [address], [place] [address] Dec, [facility] [address] [id number] [address] [place] [address], [place] [address] Dec, [facility] [address] [id number] [address] [place] [address], [place] [address] Dec, [facility] [address] [id number] [address] [place] [address], [place] [address] Dec, [facility] [address] [id number] [address] [place] [address], [place] [address] Dec, [facility] [address] [id number] [address] [place] [address], [place] [address] Dec, [facility] [address] [id number] [address] [place] [address], [place] [address] Nov, [facility] [address] [id number] [address] [place] [address], [place] [address] Nov, [facility] [address] [id number] [address] [place] [address], [place] [address] Nov, [facility] [address] [id number] [address] [place] [address], [place] [address] Nov, [facility] [address] [id number] [address] [place] [address], [place] [address] 24 Nov, 2013 [facility] [address] [id number] [address] [place] [address], [place] [address] 24 Nov, 2013 [facility] [address] [id number] [facility] [address] Nov, [facility] [address] [id number] [address] [place] [address], [place] [address] 22 Nov, 2013 [facility] [address] [id number] [address] [place] [address], [place] [address] 18 Nov, 2013 [facility] [address] [id number] [address] [place] [address], [place] [address] 18 Nov, 2013 [facility] [address] [id number] [address] [place] [address], [place] [address] 18 Nov, 2013 [facility] [address] [id number] [address] [place] [address], [place] [address] 18 Nov, 2013 [facility] [address] [id number] [address] [place] [address], [place] [address] 14 Nov, 2013 [facility] [address] [id number] [address] [place] [address], [place] [address] 14 Nov, 2013 [facility] [address] [id number] [address] [place] [address], [place] [address] Nov, [facility] [address] [id number] [address] [place] [address], [place] [address] Nov, [facility] [address] [id number] [address] [place] [address], [place] [address] Oct, [facility] [address] [id number] [address] [place] [address], [place] [address] Oct, [facility] [address] [id number] [address] [place] [address], [place] [address] Oct, [facility] [address] [id number] [address] [place] [address], [place] [address] Oct, [facility] [address] [id number] [address] [place] [address], [place] [address] Oct, [facility] [address] [id number] [facility] [address] Oct, [facility] [address] [id number] [address] [place] [address], [place] [address] Oct, [facility] [address] [id number] [address] [place] [address], [place] [address] Oct, [facility] [address] [id number] [address] [place] [address], [place] [address] Oct, [facility] [address] [id number] [address] [place] [address], [place] [address] Oct, [facility] [address] [id number] [address] [place] [address], [place] [address] Oct, [facility] [address] [id number] [address] [place] [address], [place] [address] Oct, [facility] [address] [id number] [address] [place] [address], [place] [address] Oct, [facility] [address] [id number] [address] [place] [address], [place] [address] Oct, [facility] [address] [id number] [address] [place] [address], [place] [address] Oct, [facility] [address] [id number] [address] [place] [address], [place] [address] Sep, [facility] [address] [id number] [address] [place] [address], [place] [address] Sep, [facility] [address] [id number] [address] [place] [address], [place] [address] Sep, [facility] [address] [id number] [address] [place] [address], [place] [address] Sep, [facility] [address] [id number] [address] [place] [address], [place] [address] Sep, [facility] [address] [id number] [address] [place] [address], [place] [address] 14 Sep, 2013 [facility] [address] [id number] [address] [place] [address], [place] [address] Sep, [facility] [address] [id number] [address] [place] [address], [place] [address] Sep, [facility] [address] [id number] [address] [place] [address], [place] [address] Sep, [facility] [address] [id number] [address] [place] [address], [place] [address] Sep, [facility] [address] [id number] [address] [place] [address], [place] [address] Sep, [facility] [address] [id number] [address] [place] [address], [place] [address] Sep, [facility] [address] [id number] [address] [place] [address], [place] [address] Sep, [facility] [address] [id number] [address] [place] [address], [place] [address] 30 Aug, 2013 [facility] [address] [id number] [address] [place] [address], [place] [address] 30 Aug, 2013 [facility] [address] [id number] [address] [place] [address], [place] [address] 24 Aug, 2013 [facility] [address] [id number] [address] [place] [address], [place] [address] 24 Aug, 2013 [facility] [address] [id number] [address] [place] [address], [place] [address] 17 Aug, 2013 [facility] [address] [id number] [address] [place] [address], [place] [address] 17 Aug, 2013 [facility] [address] [id number] [address] [place] [address], [place] [address] 16 Aug, 2013 [facility] [address] [id number] [address] [place] [address], [place] [address] 16 Aug, 2013 [facility] [address] [id number] [address] [place] [address], [place] [address] 12 Aug, 2013 [facility] [address] [id number] [address] [place] [address], [place] [address] 12 Aug, 2013 [facility] [address] [id number] [address] [place] [address], [place] [address] Aug, [facility] [address] [id number] [address] [place] [address], [place] [address] 10 Aug, 2013 [facility] [address] [id number] [address] [place] [address], [place] [address] Aug, [facility] [address] [id number] [address] [place] [address], [place] [address] 02 Aug, 2013 [facility] [address] [id number] [address] [place] [address], [place] [address] 19 Jul, 2013 [facility] [address] [id number] [address] [place] [address], [place] [address] 19 Jul, 2013 [facility] [address] [id number] [address] [place] [address], [place] [address] 18 Jul, 2013 [facility] [address] [id number] [address] [place] [address], [place] [address] 18 Jul, 2013 [facility] [address] [id number] [address] [place] [address], [place] [address] 14 Jul, 2013 [facility] [address] [id number] [address] [place] [address], [place] [address] 14 Jul, 2013 [facility] [address] [id number] [address] [place] [address], [place] [address] 14 Jul, 2013 [facility] [address] [id number] [address] [place] [address], [place] [address] 14 Jul, 2013 [facility] [address] [id number] [address] [place] [address], [place] [address] 07 Jul, 2013 [facility] [address] [id number] [address] [place] [address], [place] [address] 07 Jul, 2013 [facility] [address] [id number] [address] [place] [address], [place] [address] 06 Jul, 2013 [facility] [address] [id number] [address] [place] [address], [place] [address] 06 Jul, 2013 [facility] [address] [id number] [address] [place] [address], [place] [address] 05 Jul, 2013 [facility] [address] [id number] [address] [place] [address] 05 Jul, 2013 [facility] [address] [id number] [address] [place] [address], [place] [address] Jun, [facility] [address] [id number] [address] [place] [address], [place] [address] 23 Jun, 2013 [facility] [address] [id number] [address] [place] [address] 15 Jun, 2013 [facility] [address] [id number] [address] [place] [address] 15 Jun, 2013 [facility] [address] [id number] [address] [place] [address] 14 Jun, 2013 [facility] [address] [id number] [address] [place] [address], [place] [address] 24 May, 2013 [facility] [address] [id number] [address] [place] [address] 20 May, 2012 [facility] [address] [id number] [address] [place] [address] 20 Sep, 2012 [facility] [address] [id number] [address] [place] [address], [place] [address] 20 Sep, 2012 [facility] [address] [id number] [address] [place] [address], [place] [address] 19 Sep, 2012 [facility] [address] [id number] [address] [place] [address], [place] [address] 13 May, 2012 [facility] [address] [id number] [facility] [address] 12 May, 2012 [facility] [address] [id number] [address] [place] [address], [place] [address] 12 May, 2012 [facility] [address] [id number] [address] [place] [address], [place] [address] 11 May, 2012 [facility] [address] [id number] [address] [place] [address], [place] [address] 11 May, 2012 [facility] [address] [id number] [address] [place] [address], [place] [address] 11 May, 2012 [facility] [address] [id number] [address] [place] [address], [place] [address] 09 May, 2012 [facility] [address] [id number] [address] [place] [address], [place] [address] 05 May, 2012 [facility] [address] [id number] [address] [place] [address], [place] [address] 04 May, 2012 [facility] [address] [id number] [address] [place] [address], [place] [address] 03 May, 2012 [facility] [address] [id number] [address] [place] [address], [place] [address] Apr, [facility] [address] [id number] [address] [place] [address], [place] [address] Apr, [facility] [address] [id number] [address] [place] [address], [place] [address] Apr, [facility] [address] [id number] [address] [place] [address], [place] [address] Apr, [facility] [address] [id number] [address] [place] [address], [place] [address] Apr, [facility] [address] [id number] [address] [place] [address], [place] [address] Apr, [facility] [address] [id number] [address] [place] [address], [place] [address] Apr, [facility] [address] [id number] [address] [place] [address], [place] [address] Apr, [facility] [address] [id number] [address] [place] [address], [place] [address] Apr, [facility] [address] [id number] [address] [place] [address], [place] [address] Mar, [facility] [address] [id number] [address] [place] [address], [place] [address] Mar, [facility] [address] [id number] [address] [place] [address], [place] [address] Mar, [facility] [address] [id number] [address] [place] [address], [place] [address] Mar, [facility] [address] [id number] [address] [place] [address], [place] [address] Mar, [facility] [address] [id number] [address] [place] [address], [place] [address] Mar, [facility] [address] [id number] [address] [place] [address], [place] [address] Mar, [facility] [address] [id number] [address] [place] [address], [place] [address] Mar, [facility] [address] [id number] [address] [place] [address], [place] [address] Mar, [facility] [address] [id number] [address] [place] [address], [place] [address] Mar, [facility] [address] [id number] [address] [place] [address], [place] [address] Mar, [facility] [address] [id number] [address] [place] [address], [place] [address] Feb, [facility] [address] [id number] [address] [place] [address], [place] [address] Feb, [facility] [address] [id number] [address] [place] [address] Feb, [facility] [address] [id number] [address] [place] [address], [place] [address] Feb, [facility] [address] [id number] [address] [place] [address], [place] [address] Feb, [facility] [address] [id number] [address] [place] [address], [place] [address] Feb, [facility] [address] [id number] [address] [place] [address], [place] [address] Feb, [facility] [address] [id number] [address] [place] [address], [place] [address] Feb, [facility] [address] [id number] [address] [place] [address], [place] [address] Feb, [facility] [address] [id number] [address] [place] [address], [place] [address] January, [facility] [address] [id number] [address] [place] [address], [place] [address] January, [facility] [address] [id number] [address] [place] [address], [place] [address] January, [facility] [address] [id number] [address] [place] [address], [place] [address] January, [facility] [address] [id number] [address] [place] [address], [place] [address] January, [facility] [address] [id number] [address] [place] [address], [place] [address] January, [facility] [address] [id number] [address] [place] [address], [place] [address] January, [facility] [address] [id number] [address] [place] [address], [place] [address] January, [facility] [address] [id number] [address] [place] [address], [place] [address] January, [facility] [address] [id number] [address] [place] [address], [place] [address] January, [facility] [address] [id number] [address] [place] [address], [place] [address] January, [facility] [address] [id number] [address] [place] [address], [place] [address] January, [facility] [address] [id number] [address] [place] [address], [place] [address] January, [facility] [address] [id number] [address] [place] [address], [place] [address] January, [facility] [address] [id number] [address] [place] [address], [place] [address] January, [facility] [address] [id number] [address] [place] [address], [place] [address] January, [facility] [address] [id number] [address] [place] [address], [place] [address] January, [facility] [address] [id number] [address] [place] [address], [place] [address] January, [facility] [address] [id number] [address] [place] [address], [place] [address] January, [facility] [address] [id number] [address] [place] [address], [place] [address] January, [facility] [address] [id number] [address] [place] [address], [place] [address] January, [facility] [address] [id number] [address] [place] [address], [place] [address] January, [facility] [address] [id number] [address] [place] [address], [place] [address] January, [facility] [address] [id number] [address] [place] [address], [place] [address] Dec, [facility] [address] [id number] [address] [place] [address], [place] [address] 18 Dec, 2012 [facility] [address] [id number] [address] [place] [address], [place] [address] 17 Dec, 2012 [facility] [address] [id number] [address] [place] [address], [place] [address] 16 Dec, 2012 [facility] [address] [id number] [address] [place] [address], [place] [address] Dec, [facility] [address] [id number] [address] [place] [address], [place] [address] Nov, [facility] [address] [id number] [address] [place] [address], [place] [address] Oct, [facility] [address] [id number] [address] [place] [address], [place] [address] Oct, [facility] [address] [id number] [address] [place] [address], [place] [address] Oct, [facility] [address] [id number] [address] [place] [address], [place] [address] Oct, [facility] [address] [id number] [address] [place] [address], [place] [address] Oct, [facility] [address] [id number] [address] [place] [address], [place] [address] Sep, [facility] [address] [id number] [address] [place] [address], [place] [address] Sep, [facility] [address] [id number] [address] [place] [address], [place] [address] Sep, [facility] [address] [id number] [address] [place] [address], [place] [address] Aug, [facility] [address] [id number] [address] [place] [address], [place] [address] Aug, [facility] [address] [id number] [address] [place] [address], [place] [address] Aug, [facility] [address] [id number] [address] [place] [address], [place] [address] Aug, [facility] [address] [id number] [address] [place] [address], [place] [address] Jul, [facility] [address] [id number] [address] [place] [address], [place] [address] Jul, [facility] [address] [id number] [address] [place] [address], [place] [address] Jul, [facility] [address] [id number] [address] [place] [address], [place] [address] Jul, [facility] [address] [id number] [address] [place] [address], [place] [address] Jul, [facility] [address] [id number] [address] [place] [address], [place] [address] Jul, [facility] [address] [id number] [address] [place] [address], [place] [address] Jun, [facility] [address] [id number] [address] [place] [address], [place] [address] Jun, [facility] [address] [id number] [address] [place] [address], [place] [address] Jun, [facility] [address] [id number] [address] [place] [address], [place] [address] Jun, [facility] [address] [id number] [address] [place] [address], [place] [address] Jun, [facility] [address] [id number] [address] [place] [address], [place] [address] Jun, [facility] [address] [id number] [address] [place] [address], [place] [address] Jun, [facility] [address] [id number] [address] [place] [address], [place] [address] Jun, [facility] [address] [id number] [address] [place] [address], [place] [address] Jun, [facility] [address] [id number] [address] [place] [address], [place] [address] Jun, [facility] [address] [id number] [address] [place] [address], [place] [address] 17 May, 2012 [facility] [address] [id number] [address] [place] [address], [place] [address] 08 May, 2012 [facility] [address] [id number] [address] [place] [address], [place] [address] May, [facility] [address] [id number] [address] [place] [address], [place] [address] Apr, [facility] [address] [id number] [address] [place] [address], [place] [address] Apr, [facility] [address] [id number] [address] [place] [address], [place] [address] Apr, [facility] [address] [id number] [address] [place] [address], [place] [address] Apr, [facility] [address] [id number] [address] [place] [address], [place] [address] Apr, [facility] [address] [id number] [address] [place] [address], [place] [address] Apr, [facility] [address] [id number] [address] [place] [address], [place] [address] Apr, [facility] [address] [id number] [address] [place] [address], [place] [address] Apr, [facility] [address] [id number] [address] [place] [address], [place] [address] Apr, [facility] [address] [id number] [address] [place] [address], [place] [address] Mar, [facility] [address] [id number] [address] [place] [address], [place] [address] Mar, [facility] [address] [id number] [address] [place] [address], [place] [address] 30 Mar, 2012 [facility] [address] [id number] [address] [place] [address], [place] [address] Mar, [facility] [address] [id number] [address] [place] [address], [place] [address] Feb, [facility] [address] [id number] [address] [place] [address], [place] [address] Feb, [facility] [address] [id number] [address] [place] [address], [place] [address] Feb, [facility] [address] [id number] [address] [place] [address], [place] [address] January, [facility] [address] [id number] [address] [place] [address], [place] [address] January, [facility] [address] [id number] [address] [place] [address], [place] [address] January, [facility] [address] [id number] [address] [place] [address], [place] [address] January, [facility] [address] [id number] [address] [place] [address], [place] [address] January, [facility] [address] [id number] [address] [place] [address], [place] [address] Dec, [facility] [address] [id number] [address] [place] [address], [place] [address] Dec, [facility] [address] [id number] [address] [place] [address], [place] [address] 16 Dec, 2011 [facility] [address] [id number] [address] [place] [address], [place] [address] Oct, [facility] [address] [id number] [address] [place] [address], [place] [address] Oct, [facility] [address] [id number] [address] [place] [address], [place] [address] Oct, [facility] [address] [id number] [address] [place] [address], [place] [address] Sep, [facility] [address] [id number] [address] [place] [address], [place] [address] Sep, [facility] [address] [id number] [address] [place] [address], [place] [address] Aug, [facility] [address] [id number] [address] [place] [address], [place] [address] Jul, [facility] [address] [id number] [address] [place] [address], [place] [address] Jul, [facility] [address] [id number] [address] [place] [address], [place] [address] Mar, [facility] [address] [id number] [address] [place] [address], [place] [address] Aug, [facility] [address] [id number] [address] [place] [address], [place] [address] Jul, [facility] [address] [id number] [address] [place] [address], [place] [address] Jul, [facility] [address] [id number] [address] [place] [address], [place] [address] Jul, [facility] [address] [id number] [address] [place] [address], [place] [address] Jul, [facility] [address] [id number] [address] [place] [address], [place] [address] Jun, [facility] [address] [id number] [address] [place] [address], [place] [address] Jun, [facility] [address] [id number] [address] [place] [address], [place] [address] Apr, [facility] [address] [id number] [address] [place] [address], [place] [address] Aug, [facility] [address] [id number] [address] [place] [address] Jul, [facility] [address] [id number] [address] [place] [address] Jul, [facility] [address] [id number] [address] [place] [address] Jul, [facility] [address] [id number] [address] [place] [address] Jun, [facility] [address] [id number] [address] [place] [address] 10 May, 2009 [facility] [address] [id number] [address] [place] [address] 14 Dec, 2008 [facility] [address] [id number] [address] [place] [address] Nov, [facility] [address] [id number] [address] [place] [address] Oct, [facility] [address] [id number] [address] [place] [address] Aug, [facility] [address] [id number] [address] [place] [address] Aug, [facility] [address] [id number] [address] [place] [address] Jun, IMMUNIZATIONS No Known Immunizations SOCIAL HISTORY [...] s 04/2012 Hospitalization History [facility] [place]- Right wrist injury 03/29/2018
--- OUTSIDE RECORDS SUMMARY | 2020-04-09 00:42 | XMS REPORT ---
Author Author Kateryna Turner Doctor Organization [facility] Address Unknown Phone Unavailable Care Team Providers Care Video Game Script Writer Name Role Phone Migration, Doctor Unavailable Unavailable PROBLEMS Type Condition ICD9-CM Code BBF67-KX Code Onset Dates Condition S tatus SNOMED Code Problem Irregular menses N92.6 Active 801 53813 Problem Migraine with aura and without status migrainosu s, not intractable G43.109 Active 8740237 Problem Uncontrolled type 2 diabetes mellitus with hyperglycemia E11.65 Active 777461120 Problem Morbid obesity due to excess calories E66.01 Active 171110996 Problem RLS (restless legs syndrome) G25.81 A ctive 75365861 Problem Morbid obesity E66.01 Active 15041 6002 ALLERGIES No Information ENCOUNTERS Encounter Location Date Diagnosis [facility] [address] [id number] [address] [place] [address] 30 Feb, 2020 [facility] [address] [id number] [address] [place] [address] 15 Feb, 2020 Encounter for screening labo ratory testing for COVID-19 virus Z11.59 [facility] [address] [id number] [address] [place] [id number] 08 Feb, 2020 [facility] [address] [id number] [address] [place] [address] January, [facility] [address] [id number] [address] [place] [address] January, BMI 50.0-59.9, adult Z68.43 and Vomiting, unspecified R11.10 [facility] [address] [id number] [address] [place] [address] 14 Jan, 2020 [facility] [address] [id number] [address] [place] [address] Dec, [facility] [address] [id number] [address] [place] [address] 27 Dec, 2019 [facility] [address] [id number] [address] [place] [id number] 23 Dec, 2019 Uncontrolled type 2 diabetes mellitus with hyperglycemia E11.65 [facility] [address] [id number] [address] [place] [address] 07 Dec, 2019 [facility] [address] [id number] [address] [place] [address] 06 Dec, 2019 [facility] [address] [id number] [address] [place] [address] 03 Dec, 2019 [facility] [address] [id number] [address] [place] [address] 30 Nov, 2019 [facility] [address] [id number] [address] [place] [address] 28 Nov, 2019 [facility] [address] [id number] [address] [place] [address] Nov, [facility] [address] [id number] [address] [place] [address] Nov, RLS (restless legs syndrome) G25.81 [facility] [address] [id number] [address] [place] [address] 15 Oct, 2019 [facility] [address] [id number] [address] [place] [address] 09 Oct, 2019 Influenza J11.1 [facility] [address] [id number] [address] [place] [address] 16 Sep, 2019 [facility] [address] [facility] [id number] [address] [place] [address] 14 Sep, 2019 [facility] [address] [facility] [id number] [address] [place] [address] 14 Sep, 2019 [facility] [address] [id number] [address] [place] [address] 13 Sep, 2019 [facility] [address] [id number] [address] [place] [address] 10 Sep, 2019 Pneumonia of left lower lobe due to infectious organism J18.9 and Migraine with aura and without status migrainosus, not intractable G43.109 [facility] [address] [id number] [address] [place] [address] Sep, [facility] [address] [id number] [address] [place] [address] Sep, [facility] [address] [id number] [address] [place] [address] Sep, [facility] [address] [id number] [address] [place] [address] Sep, [facility] [address] [id number] [address] [place] [address] Sep, Pneumonia of left lower lobe due to infectious organism J18.9 and Migraine with aura and without status migrainosus, not intractable G43.109 [facility] [address] [id number] [address] [place] [address] Aug, Irregular menses N92.6 ; Wel l woman exam Z01.419 ; Pelvic cramping R10.2 and Left breast lump N63.20 [facility] [address] [id number] [address] [place] [address] Aug, [facility] [address] [id number] [address] [place] [address] Aug, Well woman exam Z01.419 ; Le ft breast lump N63.20 ; Irregular menses N92.6 ; Encounter for immunization Z23 ; Pelvic cramping R10.2 and Screening for cervical cancer Z12.4 [facility] [address] [id number] [address] [place] [address] Aug, [facility] [address] [id number] [address] [place] [address] Aug, [place] [address] [facility] [id number] [address] [place] [address] Aug, [facility] [address] [facility] [id number] [address] [place] [address] Jul, [facility] [address] [facility] [id number] [address] [place] [address] Jun, [facility] [address] [facility] [id number] [place] [address] Jun, [facility] [address] [facility] [id number] [address] [place] [address] Jun, [facility] [address] [facility] [id number] [place] [address] Jun, BMI 50.0-59.9, adult Z68.43 [facility] [address] [facility] [id number] [address] [place] [address] Jun, [facility] [address] [facility] [id number] [address] [place] [address] May, Acute non-recurrent sinusiti s, unspecified location J01.90 ; Diarrhea, unspecified R19.7 ; Vomiting, unspecified R11.10 and Morbid obesity E66.01 [facility] [address] [facility] [id number] [address] [place] [address] Apr, [facility] [address] [id number] [address] [place] [address] Apr, Anemia due to other cause, n ot classified D64.89 and D-dimer, elevated R79.89 [facility] [address] [facility] [id number] [address] [place] [address] Apr, [facility] [address] [id number] [address] [place] [address] Apr, [facility] [address] [facility] [id number] [address] [place] [address] Mar, Anemia due to other cause, n ot classified D64.89 and D-dimer, elevated R79.89 [facility] [address] [id number] [address] [place] [address] Mar, Leg edema, right R60.0 ; Hig h risk medication use Z79.899 and Morbid obesity E66.01 [facility] [address] [facility] [id number] [address] [place] [address] Mar, BMI 50.0-59.9, adult Z68.43 [facility] [address] [id number] [address] [place] [address] Mar, [place] [address] [facility] [id number] [address] [place] [address] January, Uncontrolled type 2 diabetes mellitus with hyperglycemia E11.65 ; RLS (restless legs syndrome) G25.81 and Morbid obesity E66.01 [place] [address] [facility] [id number] [address] [place] [address] Oct, Lipoma of right lower extrem ity D17.23 [place] [address] [id number] [address] [place] [address] Oct, Lipoma of right lower extrem ity D17.23 [facility] [address] [id number] [address] [place] [address] Sep, [facility] [address] [id number] [address] [place] [address] Sep, [facility] [address] [id number] [address] [place] [address] Sep, [facility] [address] [id number] [address] [place] [address] Sep, [facility] [address] [facility] [id number] [address] [place] [address] Sep, [facility] [address] [facility] [id number] [address] [place] [address] Aug, Uncontrolled type 2 diabetes mellitus with hyperglycemia E11.65 ; Morbid obesity due to excess calories E66.01 ; Lipoma of torso D17.1 and BMI 50.0-59.9, adult Z68.43 [facility] [address] [id number] [address] [place] [address] Jun, Encounter for immunization Z 23 [facility] [address] [id number] [address] [place] [address] Jul, [facility] [address] [id number] [address] [place] [address] Jun, Encounter for immunization Z 23 [facility] [address] [id number] [address] [place] [address] May, [facility] [address] [id number] [address] [place] [address] Jun, Encounter for immunization Z 23 [facility] [address] [id number] [address] [place] [address] May, [facility] [address] [id number] [address] [place] [address] May, [facility] [address] [id number] [address] [place] [address] Apr, [facility] [address] [id number] [address] [place] [address] Feb, [facility] [address] [id number] [address] [place] [address] Feb, [facility] [address] [id number] [address] [place] [address] Feb, [facility] [address] [id number] [address] [place] [address] January, [facility] [address] [id number] [address] [place] [address] January, [facility] [address] [id number] [address] [place] [address] Dec, [facility] [address] [id number] [address] [place] [address], [place] [address] Dec, [facility] [address] [id number] [address] [place] [address], [place] [address] Nov, [facility] [address] [id number] [address] [place] [address], [place] [address] Nov, [facility] [address] [id number] [address] [place] [address], [place] [address] Nov, [facility] [address] [id number] [address] [place] [address], [place] [address] Nov, [facility] [address] [id number] [address] [place] [address], [place] [address] Nov, [facility] [address] [id number] [address] [place] [address], [place] [address] Nov, [facility] [address] [id number] [address] [place] [address], [place] [address] Nov, [facility] [address] [id number] [address] [place] [address], [place] [address] Oct, [facility] [address] [id number] [address] [place] [address], [place] [address] Oct, [facility] [address] [id number] [address] [place] [address], [place] [address] Oct, [facility] [address] [id number] [address] [place] [address], [place] [address] Oct, [facility] [address] [id number] [address] [place] [address], [place] [address] Oct, [facility] [address] [id number] [address] [place] [address], [place] [address] Sep, [facility] [address] [id number] [address] [place] [address], [place] [address] Sep, [facility] [address] [id number] [address] [place] [address], [place] [address] Sep, [facility] [address] [id number] [address] [place] [address], [place] [address] Sep, [facility] [address] [id number] [address] [place] [address], [place] [address] Sep, [facility] [address] [id number] [address] [place] [address], [place] [address] Sep, [facility] [address] [id number] [address] [place] [address], [place] [address] Sep, [facility] [address] [id number] [address] [place] [address], [place] [address] Sep, [facility] [address] [id number] [address] [place] [address], [place] [address] Sep, [facility] [address] [id number] [address] [place] [address], [place] [address] Sep, [facility] [address] [id number] [address] [place] [address], [place] [address] Aug, [facility] [address] [id number] [address] [place] [address], [place] [address] Aug, [facility] [address] [id number] [address] [place] [address], [place] [address] Aug, [facility] [address] [id number] [address] [place] [address], [place] [address] Aug, [facility] [address] [id number] [address] [place] [address], [place] [address] Aug, [facility] [address] [id number] [address] [place] [address], [place] [address] Aug, [facility] [address] [id number] [address] [place] [address], [place] [address] Aug, [facility] [address] [id number] [address] [place] [address], [place] [address] Aug, [facility] [address] [id number] [address] [place] [address], [place] [address] Aug, [facility] [address] [id number] [address] [place] [address], [place] [address] Aug, [facility] [address] [id number] [address] [place] [address], [place] [address] Aug, [facility] [address] [id number] [address] [place] [address], [place] [address] Aug, [facility] [address] [id number] [address] [place] [address], [place] [address] Aug, [facility] [address] [id number] [address] [place] [address], [place] [address] Aug, [facility] [address] [id number] [address] [place] [address], [place] [address] Aug, [facility] [address] [id number] [address] [place] [address], [place] [address] Aug, [facility] [address] [id number] [address] [place] [address], [place] [address] Aug, [facility] [address] [id number] [address] [place] [address], [place] [address] Aug, [facility] [address] [id number] [address] [place] [address], [place] [address] Aug, [facility] [address] [id number] [address] [place] [address], [place] [address] Aug, [facility] [address] [id number] [address] [place] [address], [place] [address] Aug, [facility] [address] [id number] [address] [place] [address], [place] [address] Aug, [facility] [address] [id number] [address] [place] [address], [place] [address] 05 Aug, 2014 [facility] [address] [id number] [address] [place] [address], [place] [address] 05 Aug, 2014 [facility] [address] [id number] [address] [place] [address], [place] [address] 07 Jul, 2014 [facility] [address] [id number] [address] [place] [address], [place] [address] 07 Jul, 2014 [facility] [address] [id number] [address] [place] [address], [place] [address] 27 Jun, 2014 [facility] [address] [id number] [address] [place] [address], [place] [address] 27 Jun, 2014 [facility] [address] [id number] [address] [place] [address], [place] [address] 17 Jun, 2014 [facility] [address] [id number] [address] [place] [address], [place] [address] 17 Jun, 2014 [facility] [address] [id number] [address] [place] [address], [place] [address] 15 Jun, 2014 [facility] [address] [id number] [address] [place] [address], [place] [address] 15 Jun, 2014 [facility] [address] [id number] [address] [place] [address], [place] [address] 14 Jun, 2014 [facility] [address] [id number] [address] [place] [address], [place] [address] 14 Jun, 2014 [facility] [address] [id number] [address] [place] [address] 13 Jun, 2014 [facility] [address] [id number] [address] [place] [address] 13 Jun, 2014 [facility] [address] [id number] [address] [place] [address], [place] [address] 13 Jun, 2014 [facility] [address] [id number] [address] [place] [address], [place] [address] 13 Jun, 2014 [facility] [address] [id number] [address] [place] [address], [place] [address] 06 Jun, 2014 [facility] [address] [id number] [facility] [place] [address] Jun, [facility] [address] [id number] [facility] [place] [address] May, 2013 [facility] [address] [id number] [facility] [place] [address] May, 2013 [facility] [address] [id number] [address] [place] [address], [place] [address] May, 2013 [facility] [address] [id number] [address] [place] [address], [place] [address] May, 2013 [facility] [address] [id number] [address] [place] [address], [place] [address] May, 2013 [facility] [address] [id number] [address] [place] [address], [place] [address] May, 2013 [facility] [address] [id number] [address] [place] [address], [place] [address] May, 2013 [facility] [address] [id number] [address] [place] [address], [place] [address] May, [facility] [address] [id number] [address] [place] [address], [place] [address] Apr, [facility] [address] [id number] [address] [place] [address], [place] [address] Apr, [facility] [address] [id number] [address] [place] [address], [place] [address] Apr, [facility] [address] [id number] [address] [place] [address], [place] [address] Apr, [facility] [address] [id number] [address] [place] [address], [place] [address] Apr, [facility] [address] [id number] [address] [place] [id number], [place] [address] Apr, [facility] [address] [id number] [address] [place] [id number], [place] [address] Apr, [facility] [address] [id number] [address] [place] [id number], [place] [address] Apr, [facility] [address] [id number] [address] [place] [id number], [place] [address] Apr, [facility] [address] [id number] [address] [place] [id number], [place] [address] Mar, [facility] [address] [id number] [address] [place] [id number], [place] [address] Mar, [facility] [address] [id number] [address] [place] [id number], [place] [address] Mar, [facility] [address] [id number] [address] [place] [id number], [place] [address] Feb, [facility] [address] [id number] [address] [place] [id number], [place] [address] Feb, [facility] [address] [id number] [address] [place] [id number], [place] [address] Feb, [facility] [address] [id number] [address] [place] [id number], [place] [address] Feb, [facility] [address] [id number] [address] [place] [id number], [place] [address] Feb, [facility] [address] [id number] [address] [place] [address], [place] [address] Feb, [facility] [address] [id number] [address] [place] [id number], [place] [address] 16 Feb, 2014 [facility] [address] [id number] [address] [place] [address], [place] [address] Feb, [facility] [address] [id number] [address] [place] [address], [place] [address] Feb, [facility] [address] [id number] [address] [place] [address], [place] [address] 16 Feb, 2014 [facility] [address] [id number] [address] [place] [address], [place] [address] Feb, [facility] [address] [id number] [facility] [place] [address] Feb, [facility] [address] [id number] [address] [place] [address], [place] [address] Feb, [facility] [address] [id number] [address] [place] [address], [place] [address] Feb, [facility] [address] [id number] [address] [place] [address], [place] [address] Feb, [facility] [address] [id number] [address] [place] [address], [place] [address] Feb, [facility] [address] [id number] [address] [place] [address], [place] [address] January, [facility] [address] [id number] [address] [place] [address], [place] [address] January, [facility] [address] [id number] [address] [place] [address], [place] [address] January, [facility] [address] [id number] [address] [place] [address], [place] [address] January, [facility] [address] [id number] [address] [place] [address], [place] [address] January, [facility] [address] [id number] [address] [place] [address], [place] [address] January, [facility] [address] [id number] [address] [place] [address], [place] [address] January, [facility] [address] [id number] [address] [place] [address], [place] [address] January, [facility] [address] [id number] [address] [place] [address], [place] [address] January, [facility] [address] [id number] [address] [place] [address], [place] [address] January, [facility] [address] [id number] [facility] [place] [address] January, [facility] [address] [id number] [facility] [place] [address] January, [facility] [address] [id number] [facility] [place] [address] January, [facility] [address] [id number] [facility] [place] [address] January, [facility] [address] [id number] [facility] [place] [address] January, [facility] [address] [id number] [address] [place] [address], [place] [address] January, [facility] [address] [id number] [address] [place] [address], [place] [address] January, [facility] [address] [id number] [address] [place] [address], [place] [address] January, [facility] [address] [id number] [address] [place] [address], [place] [address] January, [facility] [address] [id number] [address] [place] [address], [place] [address] January, [facility] [address] [id number] [address] [place] [address], [place] [address] January, [facility] [address] [id number] [address] [place] [address], [place] [address] January, [facility] [address] [id number] [address] [place] [address], [place] [address] January, [facility] [address] [id number] [address] [place] [address], [place] [address] January, [facility] [address] [id number] [address] [place] [address], [place] [address] January, [facility] [address] [id number] [address] [place] [address], [place] [address] January, [facility] [address] [id number] [facility] [place] [address] Dec, [facility] [address] [id number] [facility] [place] [address] Dec, [facility] [address] [id number] [address] [place] [address], [place] [address] Dec, [facility] [address] [id number] [address] [place] [address], [place] [address] Dec, [facility] [address] [id number] [address] [place] [address], [place] [address] Dec, [facility] [address] [id number] [address] [place] [address], [place] [address] Dec, [facility] [address] [id number] [address] [place] [address], [place] [address] Dec, [facility] [address] [id number] [address] [place] [address], [place] [address] Dec, [facility] [address] [id number] [address] [place] [address], [place] [address] Dec, [facility] [address] [id number] [address] [place] [address], [place] [address] Dec, [facility] [address] [id number] [address] [place] [address], [place] [address] Dec, [facility] [address] [id number] [address] [place] [address], [place] [address] Dec, [facility] [address] [id number] [address] [place] [address], [place] [address] Dec, [facility] [address] [id number] [address] [place] [address], [place] [address] Dec, [facility] [address] [id number] [address] [place] [address], [place] [address] Dec, [facility] [address] [id number] [facility] [place] [address] 09 Dec, 2013 [facility] [address] [id number] [address] [place] [address], [place] [address] Dec, [facility] [address] [id number] [address] [place] [address], [place] [address] Dec, [facility] [address] [id number] [address] [place] [address], [place] [address] Dec, [facility] [address] [id number] [address] [place] [address], [place] [address] Dec, [facility] [address] [id number] [address] [place] [address], [place] [address] Dec, [facility] [address] [id number] [address] [place] [address], [place] [address] Dec, [facility] [address] [id number] [address] [place] [address], [place] [address] Nov, [facility] [address] [id number] [address] [place] [address], [place] [address] Nov, [facility] [address] [id number] [address] [place] [address], [place] [address] Nov, [facility] [address] [id number] [address] [place] [address], [place] [address] Nov, [facility] [address] [id number] [address] [place] [address], [place] [address] 24 Nov, 2013 [facility] [address] [id number] [address] [place] [address], [place] [address] 24 Nov, 2013 [facility] [address] [id number] [address] [place] [address], [place] [address] Nov, [facility] [address] [id number] [address] [place] [address], [place] [address] 22 Nov, 2013 [facility] [address] [id number] [address] [place] [address], [place] [address] 18 Nov, 2013 [facility] [address] [id number] [facility] [place] [address] 18 Nov, 2013 [facility] [address] [id number] [address] [place] [address], [place] [address] 18 Nov, 2013 [facility] [address] [id number] [address] [place] [address], [place] [address] 18 Nov, 2013 [facility] [address] [id number] [address] [place] [address], [place] [address] 14 Nov, 2013 [facility] [address] [id number] [address] [place] [address], [place] [address] 14 Nov, 2013 [facility] [address] [id number] [address] [place] [address], [place] [address] Nov, [facility] [address] [id number] [address] [place] [address], [place] [address] Nov, [facility] [address] [id number] [address] [place] [address], [place] [address] Oct, [facility] [address] [id number] [address] [place] [address], [place] [address] Oct, [facility] [address] [id number] [address] [place] [address], [place] [address] 24 Oct, 2013 [facility] [address] [id number] [address] [place] [address], [place] [address] Oct, [facility] [address] [id number] [address] [place] [address], [place] [address] Oct, [facility] [address] [id number] [address] [place] [address], [place] [address] Oct, [facility] [address] [id number] [address] [place] [address], [place] [address] Oct, [facility] [address] [id number] [address] [place] [address], [place] [address] Oct, [facility] [address] [id number] [facility] [place] [address] Oct, [facility] [address] [id number] [address] [place] [address], [place] [address] Oct, [facility] [address] [id number] [address] [place] [address], [place] [address] Oct, [facility] [address] [id number] [address] [place] [address], [place] [address] Oct, [facility] [address] [id number] [address] [place] [address], [place] [address] Oct, [facility] [address] [id number] [address] [place] [address], [place] [address] Oct, [facility] [address] [id number] [address] [place] [address], [place] [address] Oct, [facility] [address] [id number] [address] [place] [address], [place] [address] Sep, [facility] [address] [id number] [address] [place] [address], [place] [address] Sep, [facility] [address] [id number] [address] [place] [address], [place] [address] Sep, [facility] [address] [id number] [address] [place] [address], [place] [address] Sep, [facility] [address] [id number] [address] [place] [address], [place] [address] Sep, [facility] [address] [id number] [address] [place] [address], [place] [address] Sep, [facility] [address] [id number] [address] [place] [address], [place] [address] Sep, [facility] [address] [id number] [address] [place] [address], [place] [address] Sep, [facility] [address] [id number] [address] [place] [address], [place] [address] Sep, [facility] [address] [id number] [address] [place] [address], [place] [address] Sep, [facility] [address] [id number] [address] [place] [address], [place] [address] Sep, [facility] [address] [id number] [address] [place] [address], [place] [address] Sep, [facility] [address] [id number] [address] [place] [address], [place] [address] Sep, [facility] [address] [id number] [address] [place] [address], [place] [address] Aug, [facility] [address] [id number] [address] [place] [address], [place] [address] Aug, [facility] [address] [id number] [address] [place] [address], [place] [address] Aug, [facility] [address] [id number] [address] [place] [address], [place] [address] Aug, [facility] [address] [id number] [address] [place] [address], [place] [address] Aug, [facility] [address] [id number] [address] [place] [address], [place] [address] 17 Aug, 2013 [facility] [address] [id number] [address] [place] [address], [place] [address] 16 Aug, 2013 [facility] [address] [id number] [address] [place] [address], [place] [address] 16 Aug, 2013 [facility] [address] [id number] [address] [place] [address], [place] [address] Aug, [facility] [address] [id number] [address] [place] [address], [place] [address] Aug, [facility] [address] [id number] [address] [place] [address], [place] [address] 10 Aug, 2013 [facility] [address] [id number] [address] [place] [address], [place] [address] 10 Aug, 2013 [facility] [address] [id number] [address] [place] [address], [place] [address] 02 Aug, 2013 [facility] [address] [id number] [address] [place] [address], [place] [address] 02 Aug, 2013 [facility] [address] [id number] [address] [place] [address], [place] [address] 19 Jul, 2013 [facility] [address] [id number] [address] [place] [address], [place] [address] 19 Jul, 2013 [facility] [address] [id number] [address] [place] [address], [place] [address] 18 Jul, 2013 [facility] [address] [id number] [address] [place] [address], [place] [address] 18 Jul, 2013 [facility] [address] [id number] [address] [place] [address], [place] [address] 14 Jul, 2013 [facility] [address] [id number] [address] [place] [address], [place] [address] 14 Jul, 2013 [facility] [address] [id number] [address] [place] [address], [place] [address] 14 Jul, 2013 [facility] [address] [id number] [address] [place] [address], [place] [address] 14 Jul, 2013 [facility] [address] [id number] [address] [place] [address], [place] [address] 07 Jul, 2013 [facility] [address] [id number] [address] [place] [address], [place] [address] 07 Jul, 2013 [facility] [address] [id number] [address] [place] [address], [place] [address] 06 Jul, 2013 [facility] [address] [id number] [address] [place] [address], [place] [address] 06 Jul, 2013 [facility] [address] [id number] [address] [place] [address] 05 Jul, 2013 [facility] [address] [id number] [address] [place] [address], [place] [address] 05 Jul, 2013 [facility] [address] [id number] [address] [place] [address], [place] [address] 23 Jun, 2013 [facility] [address] [id number] [address] [place] [address], [place] [address] 23 Jun, 2013 [facility] [address] [id number] [address] [place] [address], [place] [address] 15 Jun, 2013 [facility] [address] [id number] [address] [place] [address], [place] [address] 15 Jun, 2013 [facility] [address] [id number] [address] [place] [address], [place] [address] 14 Jun, 2013 [facility] [address] [id number] [address] [place] [address], [place] [address] 24 May, 2013 [facility] [address] [id number] [address] [place] [address], [place] [address] 20 May, 2012 [facility] [address] [id number] [address] [place] [address], [place] [address] 20 May, 2012 [facility] [address] [id number] [address] [place] [address], [place] [address] 20 May, 2012 [facility] [address] [id number] [address] [place] [address], [place] [address] 19 May, 2012 [facility] [address] [id number] [address] [place] [address], [place] [address] 13 May, 2012 [facility] [address] [id number] [address] [place] [address], [place] [address] 12 May, 2012 [facility] [address] [id number] [address] [place] [address], [place] [address] 12 May, 2012 [facility] [address] [id number] [address] [place] [address], [place] [address] 11 May, 2012 [facility] [address] [id number] [address] [place] [address], [place] [address] May, 2012 [facility] [address] [id number] [address] [place] [address], [place] [address] 11 May, 2012 [facility] [address] [id number] [address] [place] [address], [place] [address] 09 May, 2012 [facility] [address] [id number] [address] [place] [address], [place] [address] 05 May, 2012 [facility] [address] [id number] [address] [place] [address], [place] [address] 04 May, 2012 [facility] [address] [id number] [address] [place] [address], [place] [address] May, [facility] [address] [id number] [address] [place] [address], [place] [address] Apr, [facility] [address] [id number] [address] [place] [address], [place] [address] Apr, [facility] [address] [id number] [address] [place] [address], [place] [address] Apr, [facility] [address] [id number] [address] [place] [address], [place] [address] Apr, [facility] [address] [id number] [address] [place] [address], [place] [address] Apr, [facility] [address] [id number] [address] [place] [address], [place] [address] Apr, [facility] [address] [id number] [address] [place] [address], [place] [address] Apr, [facility] [address] [id number] [address] [place] [address], [place] [address] Apr, [facility] [address] [id number] [address] [place] [address], [place] [address] Apr, [facility] [address] [id number] [address] [place] [address], [place] [address] Mar, [facility] [address] [id number] [address] [place] [address], [place] [address] Mar, 2012 [facility] [address] [id number] [address] [place] [address], [place] [address] Mar, 2012 [facility] [address] [id number] [address] [place] [address], [place] [address] Mar, [facility] [address] [id number] [address] [place] [address], [place] [address] Mar, [facility] [address] [id number] [address] [place] [address], [place] [address] Mar, [facility] [address] [id number] [address] [place] [address], [place] [address] Mar, [facility] [address] [id number] [address] [place] [address], [place] [address] Mar, [facility] [address] [id number] [address] [place] [address], [place] [address] Mar, [facility] [address] [id number] [address] [place] [address], [place] [address] Mar, [facility] [address] [id number] [address] [place] [address], [place] [address] Mar, [facility] [address] [id number] [address] [place] [address], [place] [address] Feb, [facility] [address] [id number] [address] [place] [address], [place] [address] Feb, [facility] [address] [id number] [address] [place] [address], [place] [address] Feb, [facility] [address] [id number] [address] [place] [address], [place] [address] Feb, [facility] [address] [id number] [address] [place] [address], [place] [address] Feb, [facility] [address] [id number] [address] [place] [address], [place] [address] Feb, [facility] [address] [id number] [address] [place] [address], [place] [address] Feb, [facility] [address] [id number] [address] [place] [address], [place] [address] Feb, [facility] [address] [id number] [address] [place] [address], [place] [address] Feb, [facility] [address] [id number] [address] [place] [address], [place] [address] January, [facility] [address] [id number] [address] [place] [address], [place] [address] January, [facility] [address] [id number] [address] [place] [address], [place] [address] January, [facility] [address] [id number] [address] [place] [address], [place] [address] January, [facility] [address] [id number] [address] [place] [address], [place] [address] January, [facility] [address] [id number] [address] [place] [address], [place] [address] January, [facility] [address] [id number] [address] [place] [address], [place] [address] January, [facility] [address] [id number] [address] [place] [address], [place] [address] January, [facility] [address] [id number] [address] [place] [address], [place] [address] January, [facility] [address] [id number] [address] [place] [address], [place] [address] January, [facility] [address] [id number] [address] [place] [address], [place] [address] January, [facility] [address] [id number] [address] [place] [address], [place] [address] January, [facility] [address] [id number] [address] [place] [address], [place] [address] January, [facility] [address] [id number] [address] [place] [address], [place] [address] January, [facility] [address] [id number] [address] [place] [address], [place] [address] January, [facility] [address] [id number] [address] [place] [address], [place] [address] January, [facility] [address] [id number] [address] [place] [address], [place] [address] January, [facility] [address] [id number] [address] [place] [address], [place] [address] January, [facility] [address] [id number] [address] [place] [address], [place] [address] January, [facility] [address] [id number] [address] [place] [address], [place] [address] January, [facility] [address] [id number] [address] [place] [address], [place] [address] January, [facility] [address] [id number] [address] [place] [address], [place] [address] January, [facility] [address] [id number] [address] [place] [address], [place] [address] January, [facility] [address] [id number] [address] [place] [address], [place] [address] Dec, [facility] [address] [id number] [address] [place] [address], [place] [address] 18 Dec, 2012 [facility] [address] [id number] [address] [place] [address], [place] [address] 17 Dec, 2012 [facility] [address] [id number] [address] [place] [address], [place] [address] 16 Dec, 2012 [facility] [address] [id number] [address] [place] [address], [place] [address] Dec, [facility] [address] [id number] [address] [place] [address], [place] [address] Nov, [facility] [address] [id number] [address] [place] [address], [place] [address] Oct, [facility] [address] [id number] [address] [place] [address], [place] [address] Oct, [facility] [address] [id number] [address] [place] [address], [place] [address] Oct, [facility] [address] [id number] [address] [place] [address], [place] [address] Oct, [facility] [address] [id number] [address] [place] [address], [place] [address] Oct, [facility] [address] [id number] [address] [place] [address], [place] [address] Sep, [facility] [address] [id number] [address] [place] [address], [place] [address] Sep, [facility] [address] [id number] [address] [place] [address], [place] [address] Sep, [facility] [address] [id number] [address] [place] [address], [place] [address] Aug, [facility] [address] [id number] [address] [place] [address], [place] [address] Aug, [facility] [address] [id number] [address] [place] [address], [place] [address] Aug, [facility] [address] [id number] [address] [place] [address], [place] [address] Aug, [facility] [address] [id number] [address] [place] [address], [place] [address] Jul, [facility] [address] [id number] [address] [place] [address], [place] [address] Jul, [facility] [address] [id number] [address] [place] [address], [place] [address] Jul, [facility] [address] [id number] [address] [place] [address], [place] [address] Jul, [facility] [address] [id number] [address] [place] [address], [place] [address] Jul, [facility] [address] [id number] [address] [place] [address], [place] [address] Jul, [facility] [address] [id number] [address] [place] [address] Jun, [facility] [address] [id number] [address] [place] [address], [place] [address] Jun, [facility] [address] [id number] [address] [place] [address], [place] [address] Jun, [facility] [address] [id number] [address] [place] [address], [place] [address] Jun, [facility] [address] [id number] [address] [place] [address] Jun, [facility] [address] [id number] [address] [place] [address] Jun, [facility] [address] [id number] [address] [place] [address] Jun, [facility] [address] [id number] [address] [place] [id number] 05 Jun, 2012 [facility] [address] [id number] [address] [place] [address] Jun, [facility] [address] [id number] [address] [place] [address], [place] [address] Jun, [facility] [address] [id number] [address] [place] [address] 17 May, 2012 [facility] [address] [id number] [address] [place] [address], [place] [address] 08 May, 2012 [facility] [address] [id number] [address] [place] [address], [place] [address] May, [facility] [address] [id number] [address] [place] [address], [place] [address] Apr, [facility] [address] [id number] [address] [place] [address], [place] [address] Apr, [facility] [address] [id number] [address] [place] [address], [place] [address] Apr, [facility] [address] [id number] [address] [place] [address], [place] [address] Apr, [facility] [address] [id number] [address] [place] [address], [place] [address] Apr, [facility] [address] [id number] [address] [place] [address], [place] [address] Apr, [facility] [address] [id number] [address] [place] [address], [place] [address] Apr, [facility] [address] [id number] [address] [place] [address], [place] [address] Apr, [facility] [address] [id number] [address] [place] [address], [place] [address] Apr, [facility] [address] [id number] [address] [place] [address], [place] [address] Mar, [facility] [address] [id number] [address] [place] [address], [place] [address] Mar, [facility] [address] [id number] [address] [place] [address], [place] [address] Mar, [facility] [address] [id number] [address] [place] [address], [place] [address] Mar, [facility] [address] [id number] [address] [place] [address], [place] [address] Feb, [facility] [address] [id number] [address] [place] [address], [place] [address] Feb, [facility] [address] [id number] [address] [place] [address], [place] [address] Feb, [facility] [address] [id number] [address] [place] [address], [place] [address] January, [facility] [address] [id number] [address] [place] [address], [place] [address] January, [facility] [address] [id number] [address] [place] [address], [place] [address] January, [facility] [address] [id number] [address] [place] [address], [place] [address] January, [facility] [address] [id number] [address] [place] [address], [place] [address] January, [facility] [address] [id number] [address] [place] [address], [place] [address] Dec, [facility] [address] [id number] [address] [place] [address], [place] [address] Dec, [facility] [address] [id number] [address] [place] [address], [place] [address] Dec, [facility] [address] [id number] [address] [place] [address], [place] [address] Oct, [facility] [address] [id number] [address] [place] [address], [place] [address] Oct, [facility] [address] [id number] [address] [place] [address], [place] [address] Oct, [facility] [address] [id number] [address] [place] [address], [place] [address] Sep, [facility] [address] [id number] [address] [place] [address], [place] [address] Sep, [facility] [address] [id number] [address] [place] [address], [place] [address] Aug, [facility] [address] [id number] [address] [place] [address], [place] [address] 08 Jul, 2011 [facility] [address] [id number] [address] [place] [address], [place] [address] 08 Jul, 2011 [facility] [address] [id number] [address] [place] [address], [place] [address] Mar, [facility] [address] [id number] [address] [place] [address], [place] [address] Aug, [facility] [address] [id number] [address] [place] [address], [place] [address] 10 Jul, 2010 [facility] [address] [id number] [address] [place] [address], [place] [address] Jul, [facility] [address] [id number] [address] [place] [address], [place] [address] Jul, [facility] [address] [id number] [address] [place] [address], [place] [address] Jul, [facility] [address] [id number] [address] [place] [address], [place] [address] 14 Jun, 2010 [facility] [address] [id number] [address] [place] [address], [place] [address] Jun, [facility] [address] [id number] [address] [place] [address], [place] [address] Apr, [facility] [address] [id number] [address] [place] [address], [place] [address] Aug, [facility] [address] [id number] [address] [place] [address], [place] [address] Jul, [facility] [address] [id number] [address] [place] [address], [place] [address] Jul, [facility] [address] [id number] [address] [place] [address], [place] [address] 13 Jul, 2009 [facility] [address] [id number] [address] [place] [address] 23 Jun, 2009 [facility] [address] [facility] [id number] [address] [place] [address] 10 May, 2009 [facility] [address] [facility] [id number] [address] [place] [address] 14 Dec, 2008 [facility] [address] [facility] [id number] [address] [place] [address] Nov, [facility] [address] [facility] [id number] [address] [place] [address] 10 Oct, 2008 [facility] [address] [facility] [id number] [address] [place] [address] Aug, [facility] [address] [facility] [id number] [address] [place] [address] Aug, [facility] [address] [facility] [id number] [address] [place] [address] 28 Jun, 2008 IMMUNIZATIONS No Known Immunizations [...] 3 day s 04/2012 Hospitalization History [facility] [place]- Right wrist injury 03/29/2018
--- OUTSIDE RECORDS SUMMARY | 2020-04-09 00:42 | XMS REPORT ---
Author Author Kateryna Turner Doctor Organization [facility] Address Unknown Phone Unavailable Care Team Providers Care Workforce Staffing Advisor Name Role Phone Migration, Doctor Unavailable Unavailable PROBLEMS Type Condition ICD9-CM Code [id number] Code Onset Dates Condition S tatus SNOMED Code Problem Irregular menses N92.6 Active 801 48493 Problem Migraine with aura and without status migrainosu s, not intractable G43.109 Active 7461396 Problem Uncontrolled type 2 diabetes mellitus with hyperglycemia E11.65 Active 602328182 Problem Morbid obesity due to excess calories E66.01 Active 224319672 Problem RLS (restless legs syndrome) G25.81 A ctive 77031406 Problem Morbid obesity E66.01 Active 29141 6002 ALLERGIES No Information ENCOUNTERS Encounter Location Date Diagnosis [facility] [id number] [place] [id number] 09 Mar, 2020 Dysuria R30.0 and Nocturnal confusion R41.0 [facility] [address] [id number] 09 Mar, 2020 [facility] [id number] [place] [address] Mar, [facility] [id number] [place] [id number] 30 Feb, 2020 [facility] [address] [id number] [address] [place] [id number] 15 Feb, 2020 Encounter for screening labo ratory testing for COVID-19 virus Z11.59 [facility] [address] [id number] [address] [place] [id number] 08 Feb, 2020 [facility] [address] [id number] [address] [place] [phone] January, [facility] [address] [id number] [address] [place] [phone] January, BMI 50.0-59.9, adult Z68.43 and Vomiting, unspecified R11.10 [facility] [address] [address] January, [facility] [address] [facility] [id number] [address] [place] [address] Dec, [facility] [address] [facility] [id number] [address] Dec, [facility] [address] [facility] [id number] [place] [address] Dec, Uncontrolled type 2 diabetes mellitus with hyperglycemia E11.65 [facility] [address] [id number] [address] [place] [id number] 07 Dec, 2019 [facility] [address] [id number] 06 Dec, 2019 [facility] [id number] [place] [address] Dec, [facility] [id number] [place] [address] 30 Nov, 2019 [facility] [address] [id number] [address] [place] [address] Nov, [facility] [address] [address] Nov, [facility] [id number] [place] [address] Nov, RLS (restless legs syndrome) G25.81 [facility] [id number] [place] [id number] 15 Oct, 2019 [facility] [address] [facility] [id number] [address] [place] [address] 09 Oct, 2019 Influenza J11.1 [facility] [address] [id number] 16 Sep, 2019 [facility] [address] [id number] [address] [place] [id number] 14 Sep, 2019 [facility] [address] [id number] [address] [place] [id number] 14 Sep, 2019 [facility] [address] [id number] [address] [place] [id number] 13 Sep, 2019 [facility] [address] [id number] [address] [place] [address] 10 Sep, 2019 Pneumonia of left lower lobe due to infectious organism J18.9 and Migraine with aura and without status migrainosus, not intractable G43.109 [facility] [address] [id number] [address] [place] [address] 10 Sep, 2019 [facility] [address] [id number] [address] [place] [id number] 10 Sep, 2019 [facility] [address] [id number] [address] [place] [id number] 08 Sep, 2019 [facility] [address] [id number] [address] [place] [id number] 08 Sep, 2019 [facility] [address] [id number] [address] [place] [id number] 08 Sep, 2019 Pneumonia of left lower lobe due to infectious organism J18.9 and Migraine with aura and without status migrainosus, not intractable G43.109 [facility] [address] [id number] [address] [place] [address] Aug, Irregular menses N92.6 ; Wel l woman exam Z01.419 ; Pelvic cramping R10.2 and Left breast lump N63.20 [facility] [address] [id number] [address] [place] [address] Aug, [facility] [address] [id number] [address] [place] [address] Aug, Well woman exam Z01.419 ; Le ft breast lump N63.20 ; Irregular menses N92.6 ; Encounter for immunization Z23 ; Pelvic cramping R10.2 and Screening for cervical cancer Z12.4 [facility] [address] [id number] 09 Aug, 2019 [facility] [id number] [place] [address] Aug, [facility] [id number] [place] [address] Aug, [facility] [id number] [place] [address] Jul, [facility] [id number] [place] [address] Jun, [facility] [id number] [place] [address] Jun, [facility] [id number] [place] [address] Jun, [facility] [address] [address] Jun, BMI 50.0-59.9, adult Z68.43 [facility] [id number] [place] [address] Jun, [facility] [address] [id number] [address] [place] [address] May, Acute non-recurrent sinusiti s, unspecified location J01.90 ; Diarrhea, unspecified R19.7 ; Vomiting, unspecified R11.10 and Morbid obesity E66.01 [facility] [id number] [place] [address] Apr, [facility] [address] [id number] [address] [place] [address] Apr, Anemia due to other cause, n ot classified D64.89 and D-dimer, elevated R79.89 [address] [facility] [id number] [address] [place] [address] Apr, [facility] [address] [facility] [id number] [address] [place] [address] Apr, [facility] [address] [facility] [id number] [address] [place] [address] Mar, Anemia due to other cause, n ot classified D64.89 and D-dimer, elevated R79.89 [address] [facility] [id number] [address] [place] [address] Mar, Leg edema, right R60.0 ; Hig h risk medication use Z79.899 and Morbid obesity E66.01 [address] [id number] [address] [place] [address] Mar, BMI 50.0-59.9, adult Z68.43 [address] [id number] [address] [place] [address] Mar, [address] [id number] [address] [place] [address] January, Uncontrolled type 2 diabetes mellitus with hyperglycemia E11.65 ; RLS (restless legs syndrome) G25.81 and Morbid obesity E66.01 [address] [id number] [address] [place] [address] Oct, Lipoma of right lower extrem ity D17.23 [address] [facility] [id number] [address] [place] [address] Oct, Lipoma of right lower extrem ity D17.23 [address] [id number] [address] [place] [address] Sep, [address] [facility] [id number] [address] [place] [address] Sep, [address] [id number] [address] [place] [address] Sep, [facility] [address] [id number] [address] [place] [address] Sep, [facility] [address] [id number] [address] [place] [id number] Sep, [facility] [address] [facility] [id number] [address] [place] [address] Aug, Uncontrolled type 2 diabetes mellitus with hyperglycemia E11.65 ; Morbid obesity due to excess calories E66.01 ; Lipoma of torso D17.1 and BMI 50.0-59.9, adult Z68.43 [facility] [address] [id number] [address] [place] [address] Jun, Encounter for immunization Z 23 [facility] [address] [id number] [address] [place] [address] Jul, [facility] [address] [id number] [address] [place] [address] Jun, Encounter for immunization Z 23 [facility] [address] [id number] [address] [place] [address] May, [facility] [address] [id number] [address] [place] [address] Jun, Encounter for immunization Z 23 [facility] [address] [id number] [address] [place] [address] May, [facility] [address] [id number] [address] [place] [address] May, [facility] [address] [id number] [address] [place] [address] Apr, [facility] [address] [id number] [address] [place] [id number] Feb, [facility] [address] [id number] [address] [place] [address] Feb, [facility] [address] [id number] [address] [place] [address] Feb, [facility] [address] [id number] [address] [place] [address], [place] [address] January, [facility] [address] [id number] [address] [place] [address], [place] [address] January, [facility] [address] [id number] [address] [place] [address], [place] [address] Dec, [facility] [address] [id number] [address] [place] [address], [place] [address] Dec, [facility] [address] [id number] [address] [place] [address], [place] [address] Nov, [facility] [address] [id number] [address] [place] [address], [place] [address] Nov, [facility] [address] [id number] [address] [place] [address], [place] [address] Nov, [facility] [address] [id number] [address] [place] [address], [place] [address] Nov, [facility] [address] [id number] [address] [place] [address], [place] [address] Nov, [facility] [address] [id number] [address] [place] [address], [place] [address] Nov, [facility] [address] [id number] [address] [place] [address], [place] [address] Nov, [facility] [address] [id number] [address] [place] [address], [place] [address] Oct, [facility] [address] [id number] [address] [place] [address], [place] [address] Oct, [facility] [address] [id number] [address] [place] [address], [place] [address] Oct, [facility] [address] [id number] [address] [place] [address] Oct, [facility] [address] [id number] [address] [place] [address], [place] [address] Oct, [facility] [address] [id number] [address] [place] [address], [place] [address] Sep, [facility] [address] [id number] [address] [place] [address], [place] [address] Sep, [facility] [address] [id number] [address] [place] [address], [place] [address] Sep, [facility] [address] [id number] [address] [place] [address], [place] [address] Sep, [facility] [address] [id number] [address] [place] [address], [place] [address] Sep, [facility] [address] [id number] [address] [place] [address], [place] [address] Sep, [facility] [address] [id number] [address] [place] [address], [place] [address] Sep, [facility] [address] [id number] [address] [place] [address], [place] [address] Sep, [facility] [address] [id number] [address] [place] [address], [place] [address] Sep, [facility] [address] [id number] [address] [place] [address], [place] [address] Sep, [facility] [address] [id number] [address] [place] [address], [place] [address] Aug, [facility] [address] [id number] [address] [place] [address], [place] [address] Aug, [facility] [address] [id number] [address] [place] [address], [place] [address] Aug, [facility] [address] [id number] [address] [place] [address], [place] [address] Aug, [facility] [address] [id number] [address] [place] [address], [place] [address] Aug, [facility] [address] [id number] [address] [place] [address], [place] [address] Aug, [facility] [address] [id number] [address] [place] [address], [place] [address] Aug, [facility] [address] [id number] [address] [place] [address], [place] [address] Aug, [facility] [address] [id number] [address] [place] [address], [place] [address] Aug, [facility] [address] [id number] [address] [place] [address], [place] [address] Aug, [facility] [address] [id number] [address] [place] [address], [place] [address] Aug, [facility] [address] [id number] [address] [place] [address], [place] [address] Aug, [facility] [address] [id number] [address] [place] [address], [place] [address] Aug, [facility] [address] [id number] [address] [place] [address], [place] [address] Aug, [facility] [address] [id number] [address] [place] [address], [place] [address] Aug, [facility] [address] [id number] [address] [place] [address], [place] [address] Aug, [facility] [address] [id number] [address] [place] [address], [place] [address] 16 Aug, 2014 [facility] [address] [id number] [address] [place] [address], [place] [address] Aug, [facility] [address] [id number] [address] [place] [address], [place] [address] Aug, [facility] [address] [id number] [address] [place] [address], [place] [address] Aug, [facility] [address] [id number] [address] [place] [address], [place] [address] 08 Aug, 2014 [facility] [address] [id number] [address] [place] [address], [place] [address] 08 Aug, 2014 [facility] [address] [id number] [address] [place] [address], [place] [address] 05 Aug, 2014 [facility] [address] [id number] [address] [place] [address], [place] [address] 05 Aug, 2014 [facility] [address] [id number] [address] [place] [address], [place] [address] Jul, [facility] [address] [id number] [address] [place] [address], [place] [address] Jul, [facility] [address] [id number] [address] [place] [address], [place] [address] Jun, [facility] [address] [id number] [address] [place] [address], [place] [address] 27 Jun, 2014 [facility] [address] [id number] [address] [place] [address], [place] [address] 17 Jun, 2014 [facility] [address] [id number] [address] [place] [address], [place] [address] 17 Jun, 2014 [facility] [address] [id number] [address] [place] [address], [place] [address] 15 Jun, 2014 [facility] [address] [id number] [address] [place] [address], [place] [address] 15 Jun, 2014 [facility] [address] [id number] [address] [place] [address], [place] [address] 14 Jun, 2014 [facility] [address] [id number] [address] [place] [address], [place] [address] 14 Jun, 2014 [facility] [address] [id number] [address] [place] [address], [place] [address] 13 Jun, 2014 [facility] [address] [id number] [address] [place] [address], [place] [address] Jun, [facility] [address] [id number] [address] [place] [address], [place] [address] Jun, [facility] [address] [id number] [address] [place] [address], [place] [address] Jun, [facility] [address] [id number] [address] [place] [address], [place] [address] Jun, [facility] [address] [id number] [address] [place] [address], [place] [address] Jun, [facility] [address] [id number] [address] [place] [address], [place] [address] May, [facility] [address] [id number] [address] [place] [address], [place] [address] May, [facility] [address] [id number] [address] [place] [address], [place] [address] May, [facility] [address] [id number] [address] [place] [address], [place] [address] May, [facility] [address] [id number] [address] [place] [address], [place] [address] May, [facility] [address] [id number] [address] [place] [address], [place] [address] May, [facility] [address] [id number] [address] [place] [address], [place] [address] May, [facility] [address] [id number] [address] [place] [address], [place] [address] May, [facility] [address] [id number] [address] [place] [address], [place] [address] Apr, [facility] [address] [id number] [address] [place] [address], [place] [address] Apr, [facility] [address] [id number] [address] [place] [address], [place] [address] Apr, [facility] [address] [id number] [address] [place] [address], [place] [address] Apr, [facility] [address] [id number] [facility] [place] [address] Apr, [facility] [address] [id number] [address] [place] [address], [place] [address] Apr, [facility] [address] [id number] [address] [place] [address], [place] [address] Apr, [facility] [address] [id number] [address] [place] [address], [place] [address] Apr, [facility] [address] [id number] [address] [place] [address], [place] [address] Apr, [facility] [address] [id number] [address] [place] [address], [place] [address] Mar, [facility] [address] [id number] [address] [place] [address], [place] [address] Mar, [facility] [address] [id number] [address] [place] [address], [place] [address] Mar, [facility] [address] [id number] [address] [place] [address], [place] [address] Feb, [facility] [address] [id number] [address] [place] [address], [place] [address] Feb, [facility] [address] [id number] [address] [place] [address], [place] [address] Feb, [facility] [address] [id number] [address] [place] [address], [place] [address] Feb, [facility] [address] [id number] [address] [place] [address], [place] [address] Feb, [facility] [address] [id number] [address] [place] [address], [place] [address] Feb, [facility] [address] [id number] [address] [place] [address], [place] [address] 16 Feb, 2014 [facility] [address] [id number] [facility] [place] [address] Feb, [facility] [address] [id number] [facility] [place] [address] Feb, [facility] [address] [id number] [facility] [place] [address] Feb, [facility] [address] [id number] [facility] [place] [address] Feb, [facility] [address] [id number] [address] [place] [address], [place] [address] Feb, [facility] [address] [id number] [address] [place] [address], [place] [address] Feb, [facility] [address] [id number] [address] [place] [address], [place] [address] Feb, [facility] [address] [id number] [address] [place] [address], [place] [address] Feb, [facility] [address] [id number] [address] [place] [address], [place] [address] Feb, [facility] [address] [id number] [address] [place] [address], [place] [address] January, [facility] [address] [id number] [address] [place] [address], [place] [address] January, [facility] [address] [id number] [address] [place] [address], [place] [address] January, [facility] [address] [id number] [address] [place] [address], [place] [address] January, [facility] [address] [id number] [address] [place] [address], [place] [address] January, [facility] [address] [id number] [address] [place] [address], [place] [address] January, [facility] [address] [id number] [address] [place] [address], [place] [address] January, [facility] [address] [id number] [facility] [place] [address] January, [facility] [address] [id number] [facility] [place] [address] January, [facility] [address] [id number] [facility] [place] [address] January, [facility] [address] [id number] [address] [place] [address], [place] [address] January, [facility] [address] [id number] [facility] [place] [address] January, [facility] [address] [id number] [address] [place] [address], [place] [address] January, [facility] [address] [id number] [address] [place] [address], [place] [address] January, [facility] [address] [id number] [address] [place] [address], [place] [address] January, [facility] [address] [id number] [address] [place] [address], [place] [address] January, [facility] [address] [id number] [address] [place] [address], [place] [address] January, [facility] [address] [id number] [address] [place] [address], [place] [address] January, [facility] [address] [id number] [address] [place] [address], [place] [address] January, [facility] [address] [id number] [address] [place] [address], [place] [address] January, [facility] [address] [id number] [address] [place] [address], [place] [address] January, [facility] [address] [id number] [address] [place] [address], [place] [address] January, [facility] [address] [id number] [facility] [place] [address] January, [facility] [address] [id number] [address] [place] [address], [place] [address] January, [facility] [address] [id number] [address] [place] [address], [place] [address] January, [facility] [address] [id number] [address] [place] [address], [place] [address] January, [facility] [address] [id number] [address] [place] [address], [place] [address] Dec, [facility] [address] [id number] [address] [place] [address], [place] [address] Dec, [facility] [address] [id number] [address] [place] [address], [place] [address] Dec, [facility] [address] [id number] [address] [place] [address], [place] [address] Dec, [facility] [address] [id number] [address] [place] [address], [place] [address] Dec, [facility] [address] [id number] [address] [place] [address], [place] [address] Dec, [facility] [address] [id number] [address] [place] [address], [place] [address] Dec, [facility] [address] [id number] [address] [place] [address], [place] [address] Dec, [facility] [address] [id number] [address] [place] [address], [place] [address] Dec, [facility] [address] [id number] [address] [place] [address], [place] [address] Dec, [facility] [address] [id number] [address] [place] [address], [place] [address] Dec, [facility] [address] [id number] [address] [place] [address], [place] [address] Dec, [facility] [address] [id number] [address] [place] [address], [place] [address] Dec, [facility] [address] [id number] [address] [place] [address], [place] [address] Dec, [facility] [address] [id number] [address] [place] [address], [place] [address] Dec, [facility] [address] [id number] [address] [place] [address], [place] [address] Dec, [facility] [address] [id number] [address] [place] [address], [place] [address] Dec, [facility] [address] [id number] [address] [place] [address], [place] [address] Dec, [facility] [address] [id number] [address] [place] [address], [place] [address] Dec, [facility] [address] [id number] [address] [place] [address], [place] [address] Dec, [facility] [address] [id number] [address] [place] [address], [place] [address] Dec, [facility] [address] [id number] [address] [place] [address], [place] [address] Dec, [facility] [address] [id number] [address] [place] [address], [place] [address] Nov, [facility] [address] [id number] [address] [place] [address], [place] [address] Nov, [facility] [address] [id number] [address] [place] [address], [place] [address] Nov, [facility] [address] [id number] [address] [place] [address], [place] [address] Nov, [facility] [address] [id number] [address] [place] [address], [place] [address] 24 Nov, 2013 [facility] [address] [id number] [address] [place] [address], [place] [address] 24 Nov, 2013 [facility] [address] [id number] [facility] [place] [address] Nov, [facility] [address] [id number] [address] [place] [address], [place] [address] 22 Nov, 2013 [facility] [address] [id number] [address] [place] [address], [place] [address] 18 Nov, 2013 [facility] [address] [id number] [address] [place] [address], [place] [address] 18 Nov, 2013 [facility] [address] [id number] [address] [place] [address], [place] [address] 18 Nov, 2013 [facility] [address] [id number] [address] [place] [address], [place] [address] 18 Nov, 2013 [facility] [address] [id number] [address] [place] [address], [place] [address] 14 Nov, 2013 [facility] [address] [id number] [address] [place] [address], [place] [address] 14 Nov, 2013 [facility] [address] [id number] [address] [place] [address], [place] [address] Nov, [facility] [address] [id number] [address] [place] [address], [place] [address] Nov, [facility] [address] [id number] [address] [place] [address], [place] [address] Oct, [facility] [address] [id number] [address] [place] [address], [place] [address] Oct, [facility] [address] [id number] [address] [place] [address], [place] [address] Oct, [facility] [address] [id number] [address] [place] [address], [place] [address] Oct, [facility] [address] [id number] [address] [place] [address], [place] [address] Oct, [facility] [address] [id number] [facility] [place] [address] Oct, [facility] [address] [id number] [address] [place] [address], [place] [address] Oct, [facility] [address] [id number] [address] [place] [address], [place] [address] Oct, [facility] [address] [id number] [address] [place] [address], [place] [address] Oct, [facility] [address] [id number] [address] [place] [address], [place] [address] Oct, [facility] [address] [id number] [address] [place] [address], [place] [address] Oct, [facility] [address] [id number] [address] [place] [address], [place] [address] Oct, [facility] [address] [id number] [address] [place] [address], [place] [address] Oct, [facility] [address] [id number] [address] [place] [address], [place] [address] Oct, [facility] [address] [id number] [address] [place] [address], [place] [address] Oct, [facility] [address] [id number] [address] [place] [address], [place] [address] Sep, [facility] [address] [id number] [address] [place] [address], [place] [address] Sep, [facility] [address] [id number] [address] [place] [address], [place] [address] Sep, [facility] [address] [id number] [address] [place] [address], [place] [address] Sep, [facility] [address] [id number] [address] [place] [address], [place] [address] Sep, [facility] [address] [id number] [address] [place] [address], [place] [address] 14 Sep, 2013 [facility] [address] [id number] [address] [place] [address], [place] [address] Sep, [facility] [address] [id number] [address] [place] [address], [place] [address] Sep, [facility] [address] [id number] [address] [place] [address], [place] [address] Sep, [facility] [address] [id number] [address] [place] [address], [place] [address] Sep, [facility] [address] [id number] [address] [place] [address], [place] [address] Sep, [facility] [address] [id number] [address] [place] [address], [place] [address] Sep, [facility] [address] [id number] [address] [place] [address], [place] [address] Sep, [facility] [address] [id number] [address] [place] [address], [place] [address] 30 Aug, 2013 [facility] [address] [id number] [address] [place] [address], [place] [address] 30 Aug, 2013 [facility] [address] [id number] [address] [place] [address], [place] [address] 24 Aug, 2013 [facility] [address] [id number] [address] [place] [address], [place] [address] 24 Aug, 2013 [facility] [address] [id number] [address] [place] [address], [place] [address] 17 Aug, 2013 [facility] [address] [id number] [address] [place] [address], [place] [address] 17 Aug, 2013 [facility] [address] [id number] [address] [place] [address], [place] [address] 16 Aug, 2013 [facility] [address] [id number] [address] [place] [address], [place] [address] 16 Aug, 2013 [facility] [address] [id number] [address] [place] [address], [place] [address] 12 Aug, 2013 [facility] [address] [id number] [address] [place] [address], [place] [address] 12 Aug, 2013 [facility] [address] [id number] [address] [place] [address], [place] [address] Aug, [facility] [address] [id number] [address] [place] [address], [place] [address] 10 Aug, 2013 [facility] [address] [id number] [address] [place] [address], [place] [address] Aug, [facility] [address] [id number] [address] [place] [address], [place] [address] 02 Aug, 2013 [facility] [address] [id number] [address] [place] [address], [place] [address] 19 Jul, 2013 [facility] [address] [id number] [address] [place] [address], [place] [address] 19 Jul, 2013 [facility] [address] [id number] [address] [place] [address], [place] [address] 18 Jul, 2013 [facility] [address] [id number] [address] [place] [address], [place] [address] 18 Jul, 2013 [facility] [address] [id number] [address] [place] [address], [place] [address] 14 Jul, 2013 [facility] [address] [id number] [address] [place] [address], [place] [address] 14 Jul, 2013 [facility] [address] [id number] [address] [place] [address], [place] [address] 14 Jul, 2013 [facility] [address] [id number] [address] [place] [address], [place] [address] 14 Jul, 2013 [facility] [address] [id number] [address] [place] [address], [place] [address] 07 Jul, 2013 [facility] [address] [id number] [address] [place] [address], [place] [address] 07 Jul, 2013 [facility] [address] [id number] [address] [place] [address], [place] [address] 06 Jul, 2013 [facility] [address] [id number] [address] [place] [address], [place] [address] 06 Jul, 2013 [facility] [address] [id number] [address] [place] [address], [place] [address] 05 Jul, 2013 [facility] [address] [id number] [address] [place] [address] 05 Jul, 2013 [facility] [address] [id number] [address] [place] [address], [place] [address] Jun, [facility] [address] [id number] [address] [place] [address], [place] [address] 23 Jun, 2013 [facility] [address] [id number] [address] [place] [address] 15 Jun, 2013 [facility] [address] [id number] [address] [place] [address] 15 Jun, 2013 [facility] [address] [id number] [address] [place] [address] 14 Jun, 2013 [facility] [address] [id number] [address] [place] [address], [place] [address] 24 May, 2013 [facility] [address] [id number] [address] [place] [address] 20 May, 2012 [facility] [address] [id number] [address] [place] [address] 20 Sep, 2012 [facility] [address] [id number] [address] [place] [address], [place] [address] 20 Sep, 2012 [facility] [address] [id number] [address] [place] [address], [place] [address] 19 Sep, 2012 [facility] [address] [id number] [address] [place] [address], [place] [address] 13 May, 2012 [facility] [address] [id number] [facility] [place] [address] 12 May, 2012 [facility] [address] [id number] [address] [place] [address], [place] [address] 12 May, 2012 [facility] [address] [id number] [address] [place] [address], [place] [address] 11 May, 2012 [facility] [address] [id number] [address] [place] [address], [place] [address] 11 May, 2012 [facility] [address] [id number] [address] [place] [address], [place] [address] 11 May, 2012 [facility] [address] [id number] [address] [place] [address], [place] [address] 09 May, 2012 [facility] [address] [id number] [address] [place] [address], [place] [address] 05 May, 2012 [facility] [address] [id number] [address] [place] [address], [place] [address] 04 May, 2012 [facility] [address] [id number] [address] [place] [address], [place] [address] 03 May, 2012 [facility] [address] [id number] [address] [place] [address], [place] [address] Apr, [facility] [address] [id number] [address] [place] [address], [place] [address] Apr, [facility] [address] [id number] [address] [place] [address], [place] [address] Apr, [facility] [address] [id number] [address] [place] [address], [place] [address] Apr, [facility] [address] [id number] [address] [place] [address], [place] [address] Apr, [facility] [address] [id number] [address] [place] [address], [place] [address] Apr, [facility] [address] [id number] [address] [place] [address], [place] [address] Apr, [facility] [address] [id number] [address] [place] [address], [place] [address] Apr, [facility] [address] [id number] [address] [place] [address], [place] [address] Apr, [facility] [address] [id number] [address] [place] [address], [place] [address] Mar, [facility] [address] [id number] [address] [place] [address], [place] [address] Mar, [facility] [address] [id number] [address] [place] [address], [place] [address] Mar, [facility] [address] [id number] [address] [place] [address], [place] [address] Mar, [facility] [address] [id number] [address] [place] [address], [place] [address] Mar, [facility] [address] [id number] [address] [place] [address], [place] [address] Mar, [facility] [address] [id number] [address] [place] [address], [place] [address] Mar, [facility] [address] [id number] [address] [place] [address], [place] [address] Mar, [facility] [address] [id number] [address] [place] [address], [place] [address] Mar, [facility] [address] [id number] [address] [place] [address], [place] [address] Mar, [facility] [address] [id number] [address] [place] [address], [place] [address] Mar, [facility] [address] [id number] [address] [place] [address], [place] [address] Feb, [facility] [address] [id number] [address] [place] [address], [place] [address] Feb, [facility] [address] [id number] [address] [place] [address] Feb, [facility] [address] [id number] [address] [place] [address], [place] [address] Feb, [facility] [address] [id number] [address] [place] [address], [place] [address] Feb, [facility] [address] [id number] [address] [place] [address], [place] [address] Feb, [facility] [address] [id number] [address] [place] [address], [place] [address] Feb, [facility] [address] [id number] [address] [place] [address], [place] [address] Feb, [facility] [address] [id number] [address] [place] [address], [place] [address] Feb, [facility] [address] [id number] [address] [place] [address], [place] [address] January, [facility] [address] [id number] [address] [place] [address], [place] [address] January, [facility] [address] [id number] [address] [place] [address], [place] [address] January, [facility] [address] [id number] [address] [place] [address], [place] [address] January, [facility] [address] [id number] [address] [place] [address], [place] [address] January, [facility] [address] [id number] [address] [place] [address], [place] [address] January, [facility] [address] [id number] [address] [place] [address], [place] [address] January, [facility] [address] [id number] [address] [place] [address], [place] [address] January, [facility] [address] [id number] [address] [place] [address], [place] [address] January, [facility] [address] [id number] [address] [place] [address], [place] [address] January, [facility] [address] [id number] [address] [place] [address], [place] [address] January, [facility] [address] [id number] [address] [place] [address], [place] [address] January, [facility] [address] [id number] [address] [place] [address], [place] [address] January, [facility] [address] [id number] [address] [place] [address], [place] [address] January, [facility] [address] [id number] [address] [place] [address], [place] [address] January, [facility] [address] [id number] [address] [place] [address], [place] [address] January, [facility] [address] [id number] [address] [place] [address], [place] [address] January, [facility] [address] [id number] [address] [place] [address], [place] [address] January, [facility] [address] [id number] [address] [place] [address], [place] [address] January, [facility] [address] [id number] [address] [place] [address], [place] [address] January, [facility] [address] [id number] [address] [place] [address], [place] [address] January, [facility] [address] [id number] [address] [place] [address], [place] [address] January, [facility] [address] [id number] [address] [place] [address], [place] [address] January, [facility] [address] [id number] [address] [place] [address], [place] [address] Dec, [facility] [address] [id number] [address] [place] [address], [place] [address] 18 Dec, 2012 [facility] [address] [id number] [address] [place] [address], [place] [address] 17 Dec, 2012 [facility] [address] [id number] [address] [place] [address], [place] [address] 16 Dec, 2012 [facility] [address] [id number] [address] [place] [address], [place] [address] Dec, [facility] [address] [id number] [address] [place] [address], [place] [address] Nov, [facility] [address] [id number] [address] [place] [address], [place] [address] Oct, [facility] [address] [id number] [address] [place] [address], [place] [address] Oct, [facility] [address] [id number] [address] [place] [address], [place] [address] Oct, [facility] [address] [id number] [address] [place] [address], [place] [address] Oct, [facility] [address] [id number] [address] [place] [address], [place] [address] Oct, [facility] [address] [id number] [address] [place] [address], [place] [address] Sep, [facility] [address] [id number] [address] [place] [address], [place] [address] Sep, [facility] [address] [id number] [address] [place] [address], [place] [address] Sep, [facility] [address] [id number] [address] [place] [address], [place] [address] Aug, [facility] [address] [id number] [address] [place] [address], [place] [address] Aug, [facility] [address] [id number] [address] [place] [address], [place] [address] Aug, [facility] [address] [id number] [address] [place] [address], [place] [address] Aug, [facility] [address] [id number] [address] [place] [address], [place] [address] Jul, [facility] [address] [id number] [address] [place] [address], [place] [address] Jul, [facility] [address] [id number] [address] [place] [address], [place] [address] Jul, [facility] [address] [id number] [address] [place] [address], [place] [address] Jul, [facility] [address] [id number] [address] [place] [address], [place] [address] Jul, [facility] [address] [id number] [address] [place] [address], [place] [address] Jul, [facility] [address] [id number] [address] [place] [address], [place] [address] Jun, [facility] [address] [id number] [address] [place] [address], [place] [address] Jun, [facility] [address] [id number] [address] [place] [address], [place] [address] Jun, [facility] [address] [id number] [address] [place] [address], [place] [address] Jun, [facility] [address] [id number] [address] [place] [address], [place] [address] Jun, [facility] [address] [id number] [address] [place] [address], [place] [address] Jun, [facility] [address] [id number] [address] [place] [address], [place] [address] Jun, [facility] [address] [id number] [address] [place] [address], [place] [address] Jun, [facility] [address] [id number] [address] [place] [address], [place] [address] Jun, [facility] [address] [id number] [address] [place] [address], [place] [address] Jun, [facility] [address] [id number] [address] [place] [address], [place] [address] 17 May, 2012 [facility] [address] [id number] [address] [place] [address], [place] [address] 08 May, 2012 [facility] [address] [id number] [address] [place] [address], [place] [address] May, [facility] [address] [id number] [address] [place] [address], [place] [address] Apr, [facility] [address] [id number] [address] [place] [address], [place] [address] Apr, [facility] [address] [id number] [address] [place] [address], [place] [address] Apr, [facility] [address] [id number] [address] [place] [address], [place] [address] Apr, [facility] [address] [id number] [address] [place] [address], [place] [address] Apr, [facility] [address] [id number] [address] [place] [address], [place] [address] Apr, [facility] [address] [id number] [address] [place] [address], [place] [address] Apr, [facility] [address] [id number] [address] [place] [address], [place] [address] Apr, [facility] [address] [id number] [address] [place] [address], [place] [address] Apr, [facility] [address] [id number] [address] [place] [address], [place] [address] Mar, [facility] [address] [id number] [address] [place] [address], [place] [address] Mar, [facility] [address] [id number] [address] [place] [address], [place] [address] 30 Mar, 2012 [facility] [address] [id number] [address] [place] [address], [place] [address] Mar, [facility] [address] [id number] [address] [place] [address], [place] [address] Feb, [facility] [address] [id number] [address] [place] [address], [place] [address] Feb, [facility] [address] [id number] [address] [place] [address], [place] [address] Feb, [facility] [address] [id number] [address] [place] [address], [place] [address] January, [facility] [address] [id number] [address] [place] [address], [place] [address] January, [facility] [address] [id number] [address] [place] [address], [place] [address] January, [facility] [address] [id number] [address] [place] [address], [place] [address] January, [facility] [address] [id number] [address] [place] [address], [place] [address] January, [facility] [address] [id number] [address] [place] [address], [place] [address] Dec, [facility] [address] [id number] [address] [place] [address], [place] [address] Dec, [facility] [address] [id number] [address] [place] [address], [place] [address] 16 Dec, 2011 [facility] [address] [id number] [address] [place] [address], [place] [address] Oct, [facility] [address] [id number] [address] [place] [address], [place] [address] Oct, [facility] [address] [id number] [address] [place] [address], [place] [address] Oct, [facility] [address] [id number] [address] [place] [address], [place] [address] Sep, [facility] [address] [id number] [address] [place] [address], [place] [address] Sep, [facility] [address] [id number] [address] [place] [address], [place] [address] Aug, [facility] [address] [id number] [address] [place] [address], [place] [address] Jul, [facility] [address] [id number] [address] [place] [address], [place] [address] Jul, [facility] [address] [id number] [address] [place] [address], [place] [address] Mar, [facility] [address] [id number] [address] [place] [address], [place] [address] Aug, [facility] [address] [id number] [address] [place] [address], [place] [address] Jul, [facility] [address] [id number] [address] [place] [address], [place] [address] Jul, [facility] [address] [id number] [address] [place] [address], [place] [address] Jul, [facility] [address] [id number] [address] [place] [address], [place] [address] Jul, [facility] [address] [id number] [address] [place] [address], [place] [address] Jun, [facility] [address] [id number] [address] [place] [address], [place] [address] Jun, [facility] [address] [id number] [address] [place] [address], [place] [address] Apr, [facility] [address] [id number] [address] [place] [address], [place] [address] Aug, [facility] [address] [id number] [address] [place] [address] Jul, [facility] [address] [id number] [address] [place] [address] Jul, [facility] [address] [id number] [address] [place] [address] Jul, [facility] [address] [id number] [address] [place] [address] Jun, [facility] [address] [id number] [address] [place] [address] 10 May, 2009 [facility] [address] [id number] [address] [place] [id number] 14 Dec, 2008 [facility] [address] [id number] [address] [place] [address] Nov, [facility] [address] [id number] [address] [place] [address] Oct, [facility] [address] [id number] [address] [place] [address] Aug, [facility] [address] [id number] [address] [place] [address] Aug, [facility] [address] [id number] [address] [place] [address] Jun, IMMUNIZATIONS No Known Immunizations SOCIAL HISTORY [...] x 3 day s 04/2012 Hospitalization History [facility] [place]- Right wrist injury 03/29/2018
--- OUTSIDE RECORDS SUMMARY | 2020-04-09 00:51 | XMS REPORT | Continuity of Care Document ---
Author Organization Unknown Address Unknown Phone Unavailable Allergies Active Description [...] mg tablet Drug Allergy 01/08/2013 Yes minocycline [id number] Drug Aller gy Mild N/V 01/17/2016 Yes acetaminophen [id number] Albert g Allergy Unknown N/A 01/17/2016 Yes erythromycin base [id number] Drug Allergy Unknown PT CAN TAKE JUAN FRANCISCO 12/22 Medications There is no data. Problems Date Dx Coded Attending Type Code Diagnosis Diagnosed By 05/17/2008 KENDALL OTTO MD 723. 1 CERVICALGIA 05/17/2008 JESSE LOPEZ DO 723.1 CERVICALGIA 05/17/2008 723.1 CERV ICALGIA 05/17/2008 723.1 CERV ICALGIA 05/17/2008 723.1 CERV ICALGIA 05/17/2008 723.1 CERV ICALGIA 05/17/2008 723.1 CERV ICALGIA 05/17/2008 723.1 CERV ICALGIA 05/17/2008 723.1 CERV ICALGIA 05/17/2008 723.1 CERV ICALGIA 05/17/2008 723.1 CERV ICALGIA 05/17/2008 723.1 CERV ICALGIA 05/17/2008 723.1 CERV ICALGIA 05/17/2008 723.1 CERV ICALGIA 05/17/2008 723.1 CERV ICALGIA 05/17/2008 723.1 CERV ICALGIA 05/17/2008 723.1 CERV ICALGIA 05/17/2008 723.1 CERV ICALGIA 05/17/2008 723.1 CERV ICALGIA 05/17/2008 723.1 CERV ICALGIA 05/17/2008 723.1 CERV ICALGIA 05/17/2008 723.1 CERV ICALGIA 05/17/2008 723.1 CERV ICALGIA 05/17/2008 723.1 CERV ICALGIA 05/17/2008 CLEO LOPEZ DOA K 723.1 CERVICALGIA 05/17/2008 ABHISHEK TADEO APRN 723.1 CERVICALGIA 05/17/2008 SARAH KIM MD 723.1 CERVICALGIA 05/17/2008 SARAH KIM MD 723.1 CERVICALGIA 05/17/2008 SARAH KIM MD 723.1 CERVICALGIA 05/17/2008 SARAH KIM MD 723.1 CERVICALGIA 05/17/2008 SARAH KIM MD 723.1 CERVICALGIA 05/17/2008 YAMILETH LAURENT MD 723.1 CERVICALGIA 05/17/2008 YAMILETH LAURENT MD 723.1 CERVICALGIA 05/17/2008 JESSE LOPEZ DO K 723.1 CERVICALGIA 05/17/2008 JESSE LOPEZ DO K 723.1 CERVICALGIA 05/17/2008 JESSE LOPEZ DO K 723.1 CERVICALGIA 05/17/2008 JESSE LOPEZ DO K 723.1 CERVICALGIA 05/17/2008 YAMILETH LAURENT MD 723.1 CERVICALGIA 05/17/2008 YAMILETH LAURENT MD 723.1 CERVICALGIA 05/17/2008 JESSE LOPEZ DO K 723.1 CERVICALGIA 05/17/2008 YAMILTEH LAURENT MD 723.1 CERVICALGIA 05/17/2008 ZENA UMANZOR APRN 72 3.1 CERVICALGIA 05/17/2008 ZENA UMANZOR APRN 72 3.1 CERVICALGIA 05/17/2008 ZENA UMANZOR APRN 72 3.1 CERVICALGIA 05/17/2008 ZENA UMANZOR APRN 72 3.1 CERVICALGIA 05/17/2008 JESSE LOPEZ DO 723.1 CERVICALGIA 05/17/2008 NOÉ STEM CUTTER, ZENA T 72 3.1 CERVICALGIA 05/17/2008 NOÉ STEM CUTTER, ZENA T 72 3.1 CERVICALGIA 05/17/2008 NOÉ STEM CUTTER, ZENA T 72 3.1 CERVICALGIA 05/17/2008 NOÉ STEM CUTTER, ZENA T 72 3.1 CERVICALGIA 05/17/2008 NOÉ STEM CUTTER, ZENA T 72 3.1 CERVICALGIA 05/17/2008 LOPEZ DO, JESSE K 723.1 CERVICALGIA 05/17/2008 LOPEZ DO, JESSE K 723.1 CERVICALGIA 05/17/2008 NOÉ NETTLES ZENA T 72 3.1 CERVICALGIA 05/17/2008 NOÉ NETTLES, ZENA T 72 3.1 CERVICALGIA 05/17/2008 YAMILETH LAURENT MD 723.1 CERVICALGIA 05/17/2008 NOÉ NETTLES ZENA T 72 3.1 CERVICALGIA 05/17/2008 NOÉ STEM CUTTER, ZENA T 72 3.1 CERVICALGIA 05/17/2008 NOÉ NETTLES ZENA T 72 3.1 CERVICALGIA 05/17/2008 NOÉ NETTLES ZENA T 72 3.1 CERVICALGIA 05/17/2008 NOÉ NETTLES ZENA T 72 3.1 CERVICALGIA 05/17/2008 NOÉ STEM CUTTER, ZENA T 72 3.1 CERVICALGIA 05/17/2008 LOPEZ DO, JESSE K 723.1 CERVICALGIA 05/17/2008 NOÉ NETTLES ZENA T 72 3.1 CERVICALGIA 05/17/2008 NOÉ NETTLES ZENA T 72 3.1 CERVICALGIA 05/17/2008 LOPEZ DO, JESSE K 723.1 CERVICALGIA 05/17/2008 LOPEZ DO, JESSE K 723.1 CERVICALGIA 05/17/2008 NOÉ NETTLES ZENA T 72 3.1 CERVICALGIA 05/17/2008 KENDALL OTTO MD 723. 1 CERVICALGIA 07/19/2008 KENDALL OTTO MD 719. 41 joint pain, localized in the shoulder 07/19/2008 KENDALL OTTO MD 724. 2 lower back pain 07/19/2008 JESSE LPOEZ DO K 719.41 joint pain, localized in the shoulder 07/19/2008 LOPEZ DOCLEOA K 724.2 lower back pain 07/19/2008 719.41 jennifer nt pain, localized in the shoulder 07/19/2008 724.2 lowe r back pain 07/19/2008 719.41 jennifer nt pain, localized in the shoulder 07/19/2008 724.2 lowe r back pain 07/19/2008 719.41 jennifer nt pain, localized in the shoulder 07/19/2008 724.2 lowe r back pain 07/19/2008 719.41 jennifer nt pain, localized in the shoulder 07/19/2008 724.2 lowe r back pain 07/19/2008 719.41 jennifer nt pain, localized in the shoulder 07/19/2008 724.2 lowe r back pain 07/19/2008 719.41 jennifer nt pain, localized in the shoulder 07/19/2008 724.2 lowe r back pain 07/19/2008 719.41 jennifer nt pain, localized in the shoulder 07/19/2008 724.2 lowe r back pain 07/19/2008 719.41 jennifer nt pain, localized in the shoulder 07/19/2008 724.2 lowe r back pain 07/19/2008 719.41 jennifer nt pain, localized in the shoulder 07/19/2008 724.2 lowe r back pain 07/19/2008 719.41 jennifer nt pain, localized in the shoulder 07/19/2008 724.2 lowe r back pain 07/19/2008 719.41 jennifer nt pain, localized in the shoulder 07/19/2008 724.2 lowe r back pain 07/19/2008 719.41 jennifer nt pain, localized in the shoulder 07/19/2008 724.2 lowe r back pain 07/19/2008 719.41 jennifer nt pain, localized in the shoulder 07/19/2008 724.2 lowe r back pain 07/19/2008 719.41 jennifer nt pain, localized in the shoulder 07/19/2008 724.2 lowe r back pain 07/19/2008 719.41 jennifer nt pain, localized in the shoulder 07/19/2008 724.2 lowe r back pain 07/19/2008 719.41 jennifer nt pain, localized in the shoulder 07/19/2008 724.2 lowe r back pain 07/19/2008 719.41 jennifer nt pain, localized in the shoulder 07/19/2008 724.2 lowe r back pain 07/19/2008 719.41 jennifer nt pain, localized in the shoulder 07/19/2008 724.2 lowe r back pain 07/19/2008 719.41 jennifer nt pain, localized in the shoulder 07/19/2008 724.2 lowe r back pain 07/19/2008 719.41 jennifer nt pain, localized in the shoulder 07/19/2008 724.2 lowe r back pain 07/19/2008 719.41 jennifer nt pain, localized in the shoulder 07/19/2008 724.2 lowe r back pain 07/19/2008 719.41 jennifer nt pain, localized in the shoulder 07/19/2008 724.2 lowe r back pain 07/19/2008 LOPEZ JESSE CASE K 719.41 joint pain, localized in the shoulder 07/19/2008 LOPEZ DOCLEOA K 724.2 lower back pain 07/19/2008 ABHISHEK [...] lower back pain 07/19/2008 YAMILETH LAURENT MD 719.4 1 joint pain, localized in the shoulder 07/19/2008 YAMILETH LAURENT MD 724.2 lower back pain 07/19/2008 YAMILETH LAURENT MD.4 1 joint pain, localized in the shoulder 07/19/2008 YAMILETH LAURENT MD 724.2 lower back pain 07/19/2008 LOPEZ DO, [...] 724.2 lower back pain 07/19/2008 YAMILETH LAURENT MD.4 1 joint pain, localized in the shoulder 07/19/2008 YAMILETH LAURENT MD.2 lower back pain 07/19/2008 YAMILETH LAURENT MD.4 1 joint pain, localized in the shoulder 07/19/2008 YAMILETH LAURENT MD 72Erlin.2 lower back pain 07/19/2008 LOPEZ DO, JESSE K 719.41 joint pain, localized in the shoulder 07/19/2008 LOPEZ DO, JESSE K 724.2 lower back pain 07/19/2008 YAMILETH LARUENT MD.4 1 joint pain, localized in the shoulder 07/19/2008 YAMILETH LAURENT MD4.2 lower back pain 07/19/2008 ZENA UMANZOR APRN 719.41 joint pain, localized in the shoulder 07/19/2008 ZENA UMANZOR APRN T 72 4.2 lower back pain 07/19/2008 ZENA UMANZOR APRN T 719.41 joint pain, localized in the shoulder 07/19/2008 ZENA UMANZOR APRN T 72 4.2 lower back pain 07/19/2008 ZENA UMANZOR APRN T 719.41 joint pain, localized in the shoulder 07/19/2008 ZENA UMANZOR APRN 72 4.2 lower back pain 07/19/2008 NÉO STEM CUTTER, ZENA T 719.41 joint pain, localized in the shoulder 07/19/2008 ZENA UMANZOR APRN T 72 4.2 lower back pain 07/19/2008 LOPEZ DO, JESSE K 719.41 joint pain, localized in the shoulder 07/19/2008 LOPEZ DO, JESSE K 724.2 lower back pain 07/19/2008 ZENA UMANZOR APRN T 719.41 joint pain, localized in the shoulder 07/19/2008 ZENA UMANZOR APRN T 72 4.2 lower back pain 07/19/2008 NOÉ NETTLES ZENA T 719.41 joint pain, localized in the shoulder 07/19/2008 ZENA UMANZOR APRN T 72 4.2 lower back pain 07/19/2008 ZENA UMANZOR APRN T 719.41 joint pain, localized in the shoulder 07/19/2008 ZENA UMANZOR APRN T 72 4.2 lower back pain 07/19/2008 ZENA UMANZOR APRN T 719.41 joint pain, localized in the shoulder 07/19/2008 ZENA UMANZOR APRN T 72 4.2 lower back pain 07/19/2008 ZENA UMANZOR APRN T 719.41 joint pain, localized in the shoulder 07/19/2008 ZENA UMANZOR APRN T 72 4.2 lower back pain 07/19/2008 LOPEZ DO, JESSE K 719.41 joint pain, localized in the shoulder 07/19/2008 LOPEZ DO, JESSE K 724.2 lower back pain 07/19/2008 LOPEZ DO, JESSE K 719.41 joint pain, localized in the shoulder 07/19/2008 LOPEZ DO, JESSE K 724.2 lower back pain 07/19/2008 ZENA UMANZOR APRN T 719.41 joint pain, localized in the shoulder 07/19/2008 ZENA UMANZOR APRN T 72 4.2 lower back pain 07/19/2008 ZENA UMANZOR APRN T 719.41 joint pain, localized in the shoulder 07/19/2008 ZENA UMANZOR APRN T 72 4.2 lower back pain 07/19/2008 YAMILETH LAURENT MD 719.4 1 joint pain, localized in the shoulder 07/19/2008 YAMILETH LAURENT MD 724.2 lower back pain 07/19/2008 ZENA UMANZOR APRN T 719.41 joint pain, localized in the shoulder 07/19/2008 ZENA UMANZOR APRN T 72 4.2 lower back pain 07/19/2008 ZENA UMANZOR APRN T 719.41 joint pain, localized in the shoulder 07/19/2008 ZENA UMANZOR APRN T 72 4.2 lower back pain 07/19/2008 ZENA UMANZOR APRN T 719.41 joint pain, localized in the shoulder 07/19/2008 ZENA UMANZOR APRN T 72 4.2 lower back pain 07/19/2008 ZENA UMANZOR APRN T 719.41 joint pain, localized in the shoulder 07/19/2008 ZENA UMANZOR APRN T 72 4.2 lower back pain 07/19/2008 ZENA UMANZOR APRN T 719.41 joint pain, localized in the shoulder 07/19/2008 ZENA UMANZOR APRN T 72 4.2 lower back pain 07/19/2008 ZENA UMANZOR APRN T 719.41 joint pain, localized in the shoulder 07/19/2008 ZENA UMANZOR APRN T 72 4.2 lower back pain 07/19/2008 LOPEZ DO, JESSE K 719.41 joint pain, localized in the shoulder 07/19/2008 LOPEZ DO, JESSE K 724.2 lower back pain 07/19/2008 ZENA UMANZOR APRN T 719.41 joint pain, localized in the shoulder 07/19/2008 ZENA UMANZOR APRN T 72 4.2 lower back pain 07/19/2008 ZENA UMANZOR APRN T 719.41 joint pain, localized in the shoulder 07/19/2008 ZENA UMANZOR APRN T 72 4.2 lower back pain 07/19/2008 LOPEZ DO, JESSE K 719.41 joint pain, localized in the shoulder 07/19/2008 LOPEZ DO, JESSE K 724.2 lower back pain 07/19/2008 LOPEZ DO, JESSE K 719.41 joint pain, localized in the shoulder 07/19/2008 LOPEZ DO, JESSE K 724.2 lower back pain 07/19/2008 ZENA UMANZOR APRN T 719.41 joint pain, localized in the shoulder 07/19/2008 ZENA UMANZOR APRN T 72 4.2 lower back pain 07/19/2008 KENDALL OTTO MD 719. 41 joint pain, localized in the shoulder 07/19/2008 KENDALL OTTO MD 724. 2 lower back pain 08/24/2008 KENDALL OTTO MD 462 PHARYNGITIS ACUTE 08/24/2008 JESSE LOPEZ DO 462 PHARYNGITIS ACUTE 08/24/2008 462 PHARYN GITIS ACUTE 08/24/2008 462 PHARYN GITIS ACUTE 08/24/2008 462 PHARYN GITIS ACUTE 08/24/2008 462 PHARYN GITIS ACUTE 08/24/2008 462 PHARYN GITIS ACUTE 08/24/2008 462 PHARYN GITIS ACUTE 08/24/2008 462 PHARYN GITIS ACUTE 08/24/2008 462 PHARYN GITIS ACUTE 08/24/2008 462 PHARYN GITIS ACUTE 08/24/2008 462 PHARYN GITIS ACUTE 08/24/2008 462 PHARYN GITIS ACUTE 08/24/2008 462 PHARYN GITIS ACUTE 08/24/2008 462 PHARYN GITIS ACUTE 08/24/2008 462 PHARYN GITIS ACUTE 08/24/2008 462 PHARYN GITIS ACUTE 08/24/2008 462 PHARYN GITIS ACUTE 08/24/2008 462 PHARYN GITIS ACUTE 08/24/2008 462 PHARYN GITIS ACUTE 08/24/2008 462 PHARYN GITIS ACUTE 08/24/2008 462 PHARYN GITIS ACUTE 08/24/2008 462 PHARYN GITIS ACUTE 08/24/2008 462 PHARYN GITIS ACUTE 08/24/2008 JESSE LOPEZ DO 462 PHARYNGITIS ACUTE 08/24/2008 ABHISHEK TADEO APRN 462 PHARYNGITIS ACUTE 08/24/2008 SARAH KIM MD 462 PHARYNGITIS ACUTE 08/24/2008 SARAH KIM MD 462 PHARYNGITIS ACUTE 08/24/2008 SARAH KIM MD 462 PHARYNGITIS ACUTE 08/24/2008 SARAH KIM MD 462 PHARYNGITIS ACUTE 08/24/2008 SARAH KIM MD 462 PHARYNGITIS ACUTE 08/24/2008 YAMILETH LAURENT MD 462 PHARYNGITIS ACUTE 08/24/2008 YAMILETH LAURENT MD 462 PHARYNGITIS ACUTE 08/24/2008 JESSE LOPEZ DO 462 PHARYNGITIS ACUTE 08/24/2008 LOPEZ DO, JESSE K 462 PHARYNGITIS ACUTE 08/24/2008 LOPEZ DO, JESSE K 462 PHARYNGITIS ACUTE 08/24/2008 LOPEZ DO, JESSE K 462 PHARYNGITIS ACUTE 08/24/2008 YAMILETH LAURENT MD 462 PHARYNGITIS ACUTE 08/24/2008 YAMILETH LAURENT MD 462 PHARYNGITIS ACUTE 08/24/2008 LOPEZ DO, JESSE K 462 PHARYNGITIS ACUTE 08/24/2008 YAMILETH LAURENT MD 462 PHARYNGITIS ACUTE 08/24/2008 ZENA UMANZOR APRN 46 2 PHARYNGITIS ACUTE 08/24/2008 ZENA UMANZOR APRN 46 2 PHARYNGITIS ACUTE 08/24/2008 ZENA UMANZOR APRN 46 2 PHARYNGITIS ACUTE 08/24/2008 ZENA UMANZOR APRN 46 2 PHARYNGITIS ACUTE 08/24/2008 JOHN CASE, JESSE K 462 PHARYNGITIS ACUTE 08/24/2008 ZENA UMANZOR APRN 46 2 PHARYNGITIS ACUTE 08/24/2008 ZENA UMANZOR APRN 46 2 PHARYNGITIS ACUTE 08/24/2008 ZENA UMANZOR APRN 46 2 PHARYNGITIS ACUTE 08/24/2008 ZENA UMANZOR APRN 46 2 PHARYNGITIS ACUTE 08/24/2008 ZENA UMANZOR APRN 46 2 PHARYNGITIS ACUTE 08/24/2008 LOPEZ DO, JESSE K 462 PHARYNGITIS ACUTE 08/24/2008 LOPEZ DO, JESSE K 462 PHARYNGITIS ACUTE 08/24/2008 ZENA UMANZOR APRN 46 2 PHARYNGITIS ACUTE 08/24/2008 ZENA UMANZOR APRN 46 2 PHARYNGITIS ACUTE 08/24/2008 YAMILETH LAURENT MD 462 PHARYNGITIS ACUTE 08/24/2008 ZENA UMANZOR APRN 46 2 PHARYNGITIS ACUTE 08/24/2008 ZENA UMANZOR APRN 46 2 PHARYNGITIS ACUTE 08/24/2008 ZENA UMANZOR APRN 46 2 PHARYNGITIS ACUTE 08/24/2008 ZENA UMANZOR APRN 46 2 PHARYNGITIS ACUTE 08/24/2008 ZENA UMANZOR APRN 46 2 PHARYNGITIS ACUTE 08/24/2008 ZENA UMANZOR APRN 46 2 PHARYNGITIS ACUTE 08/24/2008 JESSE LOPEZ DO 462 PHARYNGITIS ACUTE 08/24/2008 ZENA UMANZOR APRN 46 2 PHARYNGITIS ACUTE 08/24/2008 ZENA UMANZOR APRN 46 2 PHARYNGITIS ACUTE 08/24/2008 JESSE LOPEZ DO 462 PHARYNGITIS ACUTE 08/24/2008 JESSE LOPEZ DO 462 PHARYNGITIS ACUTE 08/24/2008 ZENA UMANZOR APRN 46 2 PHARYNGITIS ACUTE 08/24/2008 KENDALL OTTO MD 462 PHARYNGITIS ACUTE 11/01/2008 KENDALL OTTO MD 111. 2 TINEA NICOLE 11/01/2008 KENDALL OTTO MD 300. 00 ANXIETY DISORDER NOS 11/01/2008 KENDALL OTTO MD 727. 00 TENOSYNOVITIS 11/01/2008 JESSE LOPEZ DO 111.2 TINEA NICOLE 11/01/2008 JESSE LOPEZ DO 300.00 ANXIETY DISORDER NOS 11/01/2008 JESSE LOPEZ DO 727.00 TENOSYNOVITIS 11/01/2008 111.2 ISA A NICOLE 11/01/2008 300.00 ANX IETY DISORDER NOS 11/01/2008 727.00 TEN OSYNOVITIS 11/01/2008 111.2 ISA A NICOLE 11/01/2008 300.00 ANX IETY DISORDER NOS 11/01/2008 727.00 TEN OSYNOVITIS 11/01/2008 111.2 ISA A NICOLE 11/01/2008 300.00 ANX IETY DISORDER NOS 11/01/2008 727.00 TEN OSYNOVITIS 11/01/2008 111.2 ISA A NICOLE 11/01/2008 300.00 ANX IETY DISORDER NOS 11/01/2008 727.00 TEN OSYNOVITIS 11/01/2008 111.2 ISA A NICOLE 11/01/2008 300.00 ANX IETY DISORDER NOS 11/01/2008 727.00 TEN OSYNOVITIS 11/01/2008 111.2 ISA A NICOLE 11/01/2008 300.00 ANX IETY DISORDER NOS 11/01/2008 727.00 TEN OSYNOVITIS 11/01/2008 111.2 ISA A NICOLE 11/01/2008 300.00 ANX IETY DISORDER NOS 11/01/2008 727.00 TEN OSYNOVITIS 11/01/2008 111.2 ISA A NICOLE 11/01/2008 300.00 ANX IETY DISORDER NOS 11/01/2008 727.00 TEN OSYNOVITIS 11/01/2008 111.2 ISA A NICOLE 11/01/2008 300.00 ANX IETY DISORDER NOS 11/01/2008 727.00 TEN OSYNOVITIS 11/01/2008 111.2 ISA A NICOLE 11/01/2008 300.00 ANX IETY DISORDER NOS 11/01/2008 727.00 TEN OSYNOVITIS 11/01/2008 111.2 ISA A NICOLE 11/01/2008 300.00 ANX IETY DISORDER NOS 11/01/2008 727.00 TEN OSYNOVITIS 11/01/2008 111.2 ISA A NICOLE 11/01/2008 300.00 ANX IETY DISORDER NOS 11/01/2008 727.00 TEN OSYNOVITIS 11/01/2008 111.2 ISA A NICOLE 11/01/2008 300.00 ANX IETY DISORDER NOS 11/01/2008 727.00 TEN OSYNOVITIS 11/01/2008 111.2 ISA A NICOLE 11/01/2008 300.00 ANX IETY DISORDER NOS 11/01/2008 727.00 TEN OSYNOVITIS 11/01/2008 111.2 ISA A NICOLE 11/01/2008 300.00 ANX IETY DISORDER NOS 11/01/2008 727.00 TEN OSYNOVITIS 11/01/2008 111.2 ISA A NICOLE 11/01/2008 300.00 ANX IETY DISORDER NOS 11/01/2008 727.00 TEN OSYNOVITIS 11/01/2008 111.2 ISA A NICOLE 11/01/2008 300.00 ANX IETY DISORDER NOS 11/01/2008 727.00 TEN OSYNOVITIS 11/01/2008 111.2 IAS A NICOLE 11/01/2008 300.00 ANX IETY DISORDER NOS 11/01/2008 727.00 TEN OSYNOVITIS 11/01/2008 111.2 ISA A NICOLE 11/01/2008 300.00 ANX IETY DISORDER NOS 11/01/2008 727.00 TEN OSYNOVITIS 11/01/2008 111.2 ISA A NICOLE 11/01/2008 300.00 ANX IETY DISORDER NOS 11/01/2008 727.00 TEN OSYNOVITIS 11/01/2008 111.2 ISA A NICOLE 11/01/2008 300.00 ANX IETY DISORDER NOS 11/01/2008 727.00 TEN OSYNOVITIS 11/01/2008 111.2 ISA A NICOLE 11/01/2008 300.00 ANX IETY DISORDER NOS 11/01/2008 727.00 TEN OSYNOVITIS 11/01/2008 LOPEZ DO, JESSE K 111.2 TINEA NICOLE 11/01/2008 LOPEZ DO, JESSE K 300.00 ANXIETY DISORDER NOS 11/01/2008 LOPEZ DO, JESSE K 727.00 TENOSYNOVITIS 11/01/2008 LEA TADEO APRNRICIA R 111.2 TINEA NICOLE 11/01/2008 LEA TADEO APRNRICIA R 300.00 ANXIETY DISORDER NOS 11/01/2008 CARLYLE NETTLES ABHISHEK R 727.00 TENOSYNOVITIS 11/01/2008 SARAH KIM MD [...] SARAH KIM MD 111.2 TINEA NICOLE 11/01/2008 JUDY DAVIS, SARAH Law 300.00 ANXIETY DISORDER NOS 11/01/2008 JUDY DAVIS, SARAH Law 727.00 TENOSYNOVITIS 11/01/2008 YAMILETH LAURENT MD 111.2 TINEA NICOLE 11/01/2008 YAMILETH LAURENT MD 300.0 0 ANXIETY DISORDER NOS 11/01/2008 YAMILETH LAURENT MD 727.0 0 TENOSYNOVITIS 11/01/2008 YAMILETH LAURENT MD 111.2 TINEA NICOLE 11/01/2008 YAMILETH LAURENT MD 300.0 0 ANXIETY DISORDER NOS 11/01/2008 YAMILETH LAURENT MD 727.0 0 TENOSYNOVITIS 11/01/2008 LOPEZ DO, JESSE K 111.2 [...] TENOSYNOVITIS 11/01/2008 YAMILETH LAURENT MD 111.2 TINEA INCOLE 11/01/2008 YAMILETH LAURENT MD 300.0 0 ANXIETY DISORDER NOS 11/01/2008 YAMILETH LAURENT MD 727.0 0 TENOSYNOVITIS 11/01/2008 YAMILETH LAURENT MD 111.2 TINEA NICOLE 11/01/2008 YAMILETH LAURENT MD 300.0 0 ANXIETY DISORDER NOS 11/01/2008 YAMILETH LAURENT MD 727.0 0 TENOSYNOVITIS 11/01/2008 LOPEZ DO, JESSE K 111.2 TINEA NICOLE 11/01/2008 LOPEZ DO, JESSE K 300.00 ANXIETY DISORDER NOS 11/01/2008 LOPEZ DO, JESSE K 727.00 TENOSYNOVITIS 11/01/2008 YAMILETH LAURENT MD 111.2 TINEA NICOLE 11/01/2008 YAMILETH LAURENT MD 300.0 0 ANXIETY DISORDER NOS 11/01/2008 YAMILETH LAURENT MD 727.0 0 TENOSYNOVITIS 11/01/2008 ZENA UMANZOR APRN 11 1.2 TINEA NICOLE 11/01/2008 NOÉ NETTLES ZENA T 300.00 ANXIETY DISORDER NOS 11/01/2008 ZENA UMANZOR APRN T 727.00 TENOSYNOVITIS 11/01/2008 ZENA UMANZOR APRN 11 1.2 TINEA NICOLE 11/01/2008 ZENA UMANZOR APRN T 300.00 ANXIETY DISORDER NOS 11/01/2008 ZENA UMANZOR APRN T 727.00 TENOSYNOVITIS 11/01/2008 ZENA UMANZOR APRN 11 1.2 TINEA NICOLE 11/01/2008 ZENA UMANZOR APRN T 300.00 ANXIETY DISORDER NOS 11/01/2008 ZENA UMANZOR APRN T 727.00 TENOSYNOVITIS 11/01/2008 ZENA UMANZOR APRN 11 1.2 TINEA NICOLE 11/01/2008 ZENA UMANZOR APRN T 300.00 ANXIETY DISORDER NOS 11/01/2008 ZENA UMANZOR APRN T 727.00 TENOSYNOVITIS 11/01/2008 LOPEZ DO, JESSE K 111.2 TINEA NICOLE 11/01/2008 LOPEZ DO, JESSE K 300.00 ANXIETY DISORDER NOS 11/01/2008 LOPEZ DO, JESSE K 727.00 TENOSYNOVITIS 11/01/2008 ZENA UMANZOR APRN 11 1.2 TINEA NICOLE 11/01/2008 ZENA UMANZOR APRN T 300.00 ANXIETY DISORDER NOS 11/01/2008 ZENA UMANZOR APRN T 727.00 TENOSYNOVITIS 11/01/2008 ZENA UMANZOR APRN 11 1.2 TINEA NICOLE 11/01/2008 ZENA UMANZOR APRN T 300.00 ANXIETY DISORDER NOS 11/01/2008 ZENA UMANZOR APRN T 727.00 TENOSYNOVITIS 11/01/2008 ZENA UMANZOR APRN T 11 1.2 TINEA NICOLE 11/01/2008 ZENA UMANZOR APRN T 300.00 ANXIETY DISORDER NOS 11/01/2008 NOÉ NETTLES, ZENA T 727.00 TENOSYNOVITIS 11/01/2008 ZENA UMANZOR APRN 11 1.2 TINEA NICOLE 11/01/2008 ZENA UMANZOR APRN T 300.00 ANXIETY DISORDER NOS 11/01/2008 ZENA UMANZOR APRN T 727.00 TENOSYNOVITIS 11/01/2008 ZENA UMANZOR APRN 11 1.2 TINEA NICOLE 11/01/2008 ZENA UMANZOR APRN T 300.00 ANXIETY DISORDER NOS 11/01/2008 ZENA UMANZOR APRN T 727.00 TENOSYNOVITIS 11/01/2008 LOPEZ DO, JESSE K 111.2 TINEA NICOLE 11/01/2008 LOPEZ DO, JESSE K 300.00 ANXIETY DISORDER NOS 11/01/2008 LOPEZ DO, JESSE K 727.00 TENOSYNOVITIS 11/01/2008 LOPEZ DO, JESSE K 111.2 TINEA NICOLE 11/01/2008 LOPEZ DO, JESSE K 300.00 ANXIETY DISORDER NOS 11/01/2008 LOPEZ DO, JESSE K 727.00 TENOSYNOVITIS 11/01/2008 ZENA UMANZOR APRN 11 1.2 TINEA NICOLE 11/01/2008 ZENA UMANZOR APRN T 300.00 ANXIETY DISORDER NOS 11/01/2008 ZENA UMANZOR APRN T 727.00 TENOSYNOVITIS 11/01/2008 ZENA UMANZOR APRN 11 1.2 TINEA NICOLE 11/01/2008 ZENA UMANZOR APRN T 300.00 ANXIETY DISORDER NOS 11/01/2008 ZENA UMANZOR APRN T 727.00 TENOSYNOVITIS 11/01/2008 YAMILETH LAURENT MD 111.2 TINEA NICOLE 11/01/2008 YAMILETH LAURENT MD 300.0 0 ANXIETY DISORDER NOS 11/01/2008 YAMILETH LAURENT MD 727.0 0 TENOSYNOVITIS 11/01/2008 ZENA UMANZOR APRN 11 1.2 TINEA NICOLE 11/01/2008 ZENA UMANZOR APRN T 300.00 ANXIETY DISORDER NOS 11/01/2008 NOÉ STEM CUTTER, ZENA T 727.00 TENOSYNOVITIS 11/01/2008 ZENA UMANZOR APRN T 11 1.2 TINEA NICOLE 11/01/2008 NOÉ WHITEN, ZENA T 300.00 ANXIETY DISORDER NOS 11/01/2008 NOÉ STEM CUTTER, ZENA T 727.00 TENOSYNOVITIS 11/01/2008 ZENA UMANZOR APRN T 11 1.2 TINEA NICOLE 11/01/2008 NOÉ NETTLES, ZENA T 300.00 ANXIETY DISORDER NOS 11/01/2008 NOÉ NETTLES, ZENA T 727.00 TENOSYNOVITIS 11/01/2008 ZENA UMANZOR APRN 11 1.2 TINEA NICOLE 11/01/2008 NOÉ NETTLES, ZENA T 300.00 ANXIETY DISORDER NOS 11/01/2008 NOÉ NETTLES, ZENA T 727.00 TENOSYNOVITIS 11/01/2008 ZENA UMANZOR APRN T 11 1.2 TINEA NICOLE 11/01/2008 ZENA UMANZOR APRN T 300.00 ANXIETY DISORDER NOS 11/01/2008 NOÉ NETTLES, ZENA T 727.00 TENOSYNOVITIS 11/01/2008 ZENA UMANZOR APRN 11 1.2 TINEA NICOLE 11/01/2008 NOÉ NETTLES, ZENA T 300.00 ANXIETY DISORDER NOS 11/01/2008 NOÉ NETTLES, ZENA T 727.00 TENOSYNOVITIS 11/01/2008 LOPEZ DO, JESSE K 111.2 TINEA NICOLE 11/01/2008 LOPEZ DO, JESSE K 300.00 ANXIETY DISORDER NOS 11/01/2008 LOPEZ DO, JESSE K 727.00 TENOSYNOVITIS 11/01/2008 ZENA UMANZOR APRN 11 1.2 TINEA NICOLE 11/01/2008 NOÉ NETTLES ZENA T 300.00 ANXIETY DISORDER NOS 11/01/2008 NOÉ NETTLES, ZENA T 727.00 TENOSYNOVITIS 11/01/2008 ZENA UMANZOR APRN T 11 1.2 TINEA NICOLE 11/01/2008 NOÉ NETTLES ZENA T 300.00 ANXIETY DISORDER NOS 11/01/2008 ZENA UMANZOR APRN T 727.00 TENOSYNOVITIS 11/01/2008 LOPEZ DO, JESSE K 111.2 TINEA NICOLE 11/01/2008 LOPEZ DO, JESSE K 300.00 ANXIETY DISORDER NOS 11/01/2008 CLEO LOPEZ DOA K 727.00 TENOSYNOVITIS 11/01/2008 JOHN CASE JESSE K 111.2 TINEA NICOLE 11/01/2008 JESSE LOPEZ DO K 300.00 ANXIETY DISORDER NOS 11/01/2008 JOHN CASE, JESSE K 727.00 TENOSYNOVITIS 11/01/2008 ZENA UMANZOR APRN T 11 1.2 TINEA NICOLE 11/01/2008 ZENA UMANZOR APRN T 300.00 ANXIETY DISORDER NOS 11/01/2008 NOÉ NETTLES, ZENA T 727.00 TENOSYNOVITIS 11/01/2008 KENDALL OTTO MD 111. 2 TINEA NICOLE 11/01/2008 KENDALL OTTO MD 300. 00 ANXIETY DISORDER NOS 11/01/2008 KENDALL OTTO MD 727. 00 TENOSYNOVITIS 01/03/2009 KENDALL OTTO MD 782. 3 DEPENDENT EDEMA DUE TO INACTIVITY 01/03/2009 JESSE LOPEZ DO K 782.3 DEPENDENT EDEMA DUE TO INACTIVITY 01/03/2009 782.3 DEPE NDENT EDEMA DUE TO INACTIVITY 01/03/2009 782.3 DEPE NDENT EDEMA DUE TO INACTIVITY 01/03/2009 782.3 DEPE NDENT EDEMA DUE TO INACTIVITY 01/03/2009 782.3 DEPE NDENT EDEMA DUE TO INACTIVITY 01/03/2009 782.3 DEPE NDENT EDEMA DUE TO INACTIVITY 01/03/2009 782.3 DEPE NDENT EDEMA DUE TO INACTIVITY 01/03/2009 782.3 DEPE NDENT EDEMA DUE TO INACTIVITY 01/03/2009 782.3 DEPE NDENT EDEMA DUE TO INACTIVITY 01/03/2009 782.3 DEPE NDENT EDEMA DUE TO INACTIVITY 01/03/2009 782.3 DEPE NDENT EDEMA DUE TO INACTIVITY 01/03/2009 782.3 DEPE NDENT EDEMA DUE TO INACTIVITY 01/03/2009 782.3 DEPE NDENT EDEMA DUE TO INACTIVITY 01/03/2009 782.3 DEPE NDENT EDEMA DUE TO INACTIVITY 01/03/2009 782.3 DEPE NDENT EDEMA DUE TO INACTIVITY 01/03/2009 782.3 DEPE NDENT EDEMA DUE TO INACTIVITY 01/03/2009 782.3 DEPE NDENT EDEMA DUE TO INACTIVITY 01/03/2009 782.3 DEPE NDENT EDEMA DUE TO INACTIVITY 01/03/2009 782.3 DEPE NDENT EDEMA DUE TO INACTIVITY 01/03/2009 782.3 DEPE NDENT EDEMA DUE TO INACTIVITY 01/03/2009 782.3 DEPE NDENT EDEMA DUE TO INACTIVITY 01/03/2009 782.3 DEPE NDENT EDEMA DUE TO INACTIVITY 01/03/2009 782.3 DEPE NDENT EDEMA DUE TO INACTIVITY 01/03/2009 JESSE LOPEZ [...] DUE TO INACTIVITY 01/03/2009 ZENA UMANZOR APRN 78 2.3 DEPENDENT EDEMA DUE TO INACTIVITY 01/03/2009 ZENA UMANZOR APRN 78 2.3 DEPENDENT EDEMA DUE TO INACTIVITY 01/03/2009 ZENA UMANZOR APRN 78 2.3 DEPENDENT EDEMA DUE TO INACTIVITY 01/03/2009 ZENA UMANZOR APRN T 78 2.3 DEPENDENT EDEMA DUE TO INACTIVITY 01/03/2009 LOPEZ DO, JESSE K 782.3 DEPENDENT EDEMA DUE TO INACTIVITY 01/03/2009 ZENA UMANZOR APRN T 78 2.3 DEPENDENT EDEMA DUE TO INACTIVITY 01/03/2009 ZENA UMANZOR APRN T 78 2.3 DEPENDENT EDEMA DUE TO INACTIVITY 01/03/2009 ZENA UMANZOR APRN T 78 2.3 DEPENDENT EDEMA DUE TO INACTIVITY 01/03/2009 ZENA UMANZOR APRN T 78 2.3 DEPENDENT EDEMA DUE TO INACTIVITY 01/03/2009 ZENA UMANZOR APRN T 78 2.3 DEPENDENT EDEMA DUE TO INACTIVITY 01/03/2009 LOPEZ DO, JESSE K 782.3 DEPENDENT EDEMA DUE TO INACTIVITY 01/03/2009 LOPEZ DO, JESSE K 782.3 DEPENDENT EDEMA DUE TO INACTIVITY 01/03/2009 ZENA UMANZOR APRN 78 2.3 DEPENDENT EDEMA DUE TO INACTIVITY 01/03/2009 ZENA UMANZOR APRN T 78 2.3 DEPENDENT EDEMA DUE TO INACTIVITY 01/03/2009 YAMILETH LAURENT MD 782.3 DEPENDENT EDEMA DUE TO INACTIVITY 01/03/2009 ZENA UMANZOR APRN T 78 2.3 DEPENDENT EDEMA DUE TO INACTIVITY 01/03/2009 ZENA UMANZOR APRN T 78 2.3 DEPENDENT EDEMA DUE TO INACTIVITY 01/03/2009 ZENA UMANZOR APRN T 78 2.3 DEPENDENT EDEMA DUE TO INACTIVITY 01/03/2009 ZENA UMANZOR APRN T 78 2.3 DEPENDENT EDEMA DUE TO INACTIVITY 01/03/2009 ZENA UMANZOR APRN T 78 2.3 DEPENDENT EDEMA DUE TO INACTIVITY 01/03/2009 ZENA UMANZOR APRN T 78 2.3 DEPENDENT EDEMA DUE TO INACTIVITY 01/03/2009 LOPEZ DO, JESSE K 782.3 DEPENDENT EDEMA DUE TO INACTIVITY 01/03/2009 ZENA UMANZOR APRN T 78 2.3 DEPENDENT EDEMA DUE TO INACTIVITY 01/03/2009 ZENA UMANZOR APRN T 78 2.3 DEPENDENT EDEMA DUE TO INACTIVITY 01/03/2009 LOPEZ DO, JESSE K 782.3 DEPENDENT EDEMA DUE TO INACTIVITY 01/03/2009 LOPEZ DO, JESSE K 782.3 DEPENDENT EDEMA DUE TO INACTIVITY 01/03/2009 ZENA UMANZOR APRN T 78 2.3 DEPENDENT EDEMA DUE TO INACTIVITY 01/03/2009 KENDALL OTTO MD 782. 3 DEPENDENT EDEMA DUE TO INACTIVITY 03/17/2009 FAM DAVIS, KENDALL 354. 0 CARPAL TUNNEL SYNDROME 03/17/2009 JESSE LOPEZ DO 354.0 CARPAL TUNNEL SYNDROME 03/17/2009 354.0 CARP AL TUNNEL SYNDROME 03/17/2009 354.0 CARP AL TUNNEL SYNDROME 03/17/2009 354.0 CARP AL TUNNEL SYNDROME 03/17/2009 354.0 CARP AL TUNNEL SYNDROME 03/17/2009 354.0 CARP AL TUNNEL SYNDROME 03/17/2009 354.0 CARP AL TUNNEL SYNDROME 03/17/2009 354.0 CARP AL TUNNEL SYNDROME 03/17/2009 354.0 CARP AL TUNNEL SYNDROME 03/17/2009 354.0 CARP AL TUNNEL SYNDROME 03/17/2009 354.0 CARP AL TUNNEL SYNDROME 03/17/2009 354.0 CARP AL TUNNEL SYNDROME 03/17/2009 354.0 CARP AL TUNNEL SYNDROME 03/17/2009 354.0 CARP AL TUNNEL SYNDROME 03/17/2009 354.0 CARP AL TUNNEL SYNDROME 03/17/2009 354.0 CARP AL TUNNEL SYNDROME 03/17/2009 354.0 CARP AL TUNNEL SYNDROME 03/17/2009 354.0 CARP AL TUNNEL SYNDROME 03/17/2009 354.0 CARP AL TUNNEL SYNDROME 03/17/2009 354.0 CARP AL TUNNEL SYNDROME 03/17/2009 354.0 CARP AL TUNNEL SYNDROME 03/17/2009 354.0 CARP AL TUNNEL SYNDROME 03/17/2009 354.0 CARP AL TUNNEL SYNDROME 03/17/2009 JESSE LOPEZ DO 354.0 CARPAL TUNNEL SYNDROME 03/17/2009 ABHISHEK TADEO APRN 354.0 CARPAL TUNNEL SYNDROME 03/17/2009 SARAH KIM MD 354.0 CARPAL TUNNEL SYNDROME 03/17/2009 SARAH KIM MD 354.0 CARPAL TUNNEL SYNDROME 03/17/2009 SARAH KIM MD 354.0 CARPAL TUNNEL SYNDROME 03/17/2009 SARAH KIM MD 354.0 CARPAL TUNNEL SYNDROME 03/17/2009 SARAH KIM MD 354.0 CARPAL TUNNEL SYNDROME 03/17/2009 YAMILETH LAURENT MD 354.0 CARPAL TUNNEL SYNDROME 03/17/2009 YAMILETH LAURENT MD 354.0 CARPAL TUNNEL SYNDROME 03/17/2009 JESSE LOPEZ DO 354.0 CARPAL TUNNEL SYNDROME 03/17/2009 LOPEZ DO, JESSE K 354.0 CARPAL TUNNEL SYNDROME 03/17/2009 LOPEZ DO, JESSE K 354.0 CARPAL TUNNEL SYNDROME 03/17/2009 LOPEZ DO, JESSE K 354.0 CARPAL TUNNEL SYNDROME 03/17/2009 YAMILETH LAURENT MD 354.0 CARPAL TUNNEL SYNDROME 03/17/2009 ANASTASIIA DAVIS, YAMILETH 354.0 CARPAL TUNNEL SYNDROME 03/17/2009 LOPEZ DO, JESSE K 354.0 CARPAL TUNNEL SYNDROME 03/17/2009 YAMILETH LAURENT MD 354.0 CARPAL TUNNEL SYNDROME 03/17/2009 ZENA UMANZOR APRN T 35 4.0 CARPAL TUNNEL SYNDROME 03/17/2009 ZENA UMANZOR APRN T 35 4.0 CARPAL TUNNEL SYNDROME 03/17/2009 ZENA UMANZOR APRN T 35 4.0 CARPAL TUNNEL SYNDROME 03/17/2009 ZENA UMANZOR APRN T 35 4.0 CARPAL TUNNEL SYNDROME 03/17/2009 LOPEZ DO, JESSE K 354.0 CARPAL TUNNEL SYNDROME 03/17/2009 ZENA UMANOZR APRN T 35 4.0 CARPAL TUNNEL SYNDROME 03/17/2009 ZENA UMANZOR APRN T 35 4.0 CARPAL TUNNEL SYNDROME 03/17/2009 ZENA UMANZOR APRN T 35 4.0 CARPAL TUNNEL SYNDROME 03/17/2009 ZENA UMANZOR APRN T 35 4.0 CARPAL TUNNEL SYNDROME 03/17/2009 ZENA UMANZOR APRN T 35 4.0 CARPAL TUNNEL SYNDROME 03/17/2009 LOPEZ DO, JESSE K 354.0 CARPAL TUNNEL SYNDROME 03/17/2009 LOPEZ DO, JESSE K 354.0 CARPAL TUNNEL SYNDROME 03/17/2009 ZENA UMANZOR APRN T 35 4.0 CARPAL TUNNEL SYNDROME 03/17/2009 ZENA UMANZOR APRN T 35 4.0 CARPAL TUNNEL SYNDROME 03/17/2009 YAMILETH LAURENT MD 354.0 CARPAL TUNNEL SYNDROME 03/17/2009 ZENA UMANZOR APRN T 35 4.0 CARPAL TUNNEL SYNDROME 03/17/2009 ZENA UMANZOR APRN T 35 4.0 CARPAL TUNNEL SYNDROME 03/17/2009 ZENA UMANZOR APRN T 35 4.0 CARPAL TUNNEL SYNDROME 03/17/2009 ZENA UMANZOR APRN T 35 4.0 CARPAL TUNNEL SYNDROME 03/17/2009 ZENA UMANZOR APRN T 35 4.0 CARPAL TUNNEL SYNDROME 03/17/2009 ZENA UMANZOR APRN T 35 4.0 CARPAL TUNNEL SYNDROME 03/17/2009 JOHN CASE JESSE K 354.0 CARPAL TUNNEL SYNDROME 03/17/2009 ZENA UMANZOR APRN T 35 4.0 CARPAL TUNNEL SYNDROME 03/17/2009 ZENA UMANZOR APRN T 35 4.0 CARPAL TUNNEL SYNDROME 03/17/2009 JOHN CASE JESSE K 354.0 CARPAL TUNNEL SYNDROME 03/17/2009 LOPEZ DO JESSE K 354.0 CARPAL TUNNEL SYNDROME 03/17/2009 ZENA UMANZOR APRN 35 4.0 CARPAL TUNNEL SYNDROME 03/17/2009 KENDALL OTTO MD 354. 0 CARPAL TUNNEL SYNDROME 06/01/2009 KENDALL OTTO MD 307. 40 NONORGANIC SLEEP DISORDERS 06/01/2009 KENDALL OTTO MD 780. 93 memory lapses or loss 06/01/2009 KENDALL OTTO MD 784. 0 headache 06/01/2009 KENDALL OTTO MD 786. 05 shortness of breath 06/01/2009 JOHN CASE JESSE K 307.40 NONORGANIC SLEEP DISORDERS 06/01/2009 JOHN CASE JESSE K 780.93 memory lapses or loss 06/01/2009 JOHN CASE JESSE K 784.0 headache 06/01/2009 LOPEZ DO JESSE K 786.05 shortness of breath 06/01/2009 307.40 NON ORGANIC SLEEP DISORDERS 06/01/2009 780.93 mem ory lapses or loss 06/01/2009 784.0 headache 06/01/2009 786.05 gerri rtness of breath 06/01/2009 307.40 NON ORGANIC SLEEP DISORDERS 06/01/2009 780.93 mem ory lapses or loss 06/01/2009 784.0 headache 06/01/2009 786.05 gerri rtness of breath 06/01/2009 307.40 NON ORGANIC SLEEP DISORDERS 06/01/2009 780.93 mem ory lapses or loss 06/01/2009 784.0 headache 06/01/2009 786.05 gerri rtness of breath 06/01/2009 307.40 NON ORGANIC SLEEP DISORDERS 06/01/2009 780.93 mem ory lapses or loss 06/01/2009 784.0 headache 06/01/2009 786.05 gerri rtness of breath 06/01/2009 307.40 NON ORGANIC SLEEP DISORDERS 06/01/2009 780.93 mem ory lapses or loss 06/01/2009 784.0 headache 06/01/2009 786.05 gerri rtness of breath 06/01/2009 307.40 NON ORGANIC SLEEP DISORDERS 06/01/2009 780.93 mem ory lapses or loss 06/01/2009 784.0 headache 06/01/2009 786.05 gerri rtness of breath 06/01/2009 307.40 NON ORGANIC SLEEP DISORDERS 06/01/2009 780.93 mem ory lapses or loss 06/01/2009 784.0 headache 06/01/2009 786.05 gerri rtness of breath 06/01/2009 307.40 NON ORGANIC SLEEP DISORDERS 06/01/2009 780.93 mem ory lapses or loss 06/01/2009 784.0 headache 06/01/2009 786.05 gerri rtness of breath 06/01/2009 307.40 NON ORGANIC SLEEP DISORDERS 06/01/2009 780.93 mem ory lapses or loss 06/01/2009 784.0 headache 06/01/2009 786.05 gerri rtness of breath 06/01/2009 307.40 NON ORGANIC SLEEP DISORDERS 06/01/2009 780.93 mem ory lapses or loss 06/01/2009 784.0 headache 06/01/2009 786.05 gerri rtness of breath 06/01/2009 307.40 NON ORGANIC SLEEP DISORDERS 06/01/2009 780.93 mem ory lapses or loss 06/01/2009 784.0 headache 06/01/2009 786.05 gerri rtness of breath 06/01/2009 307.40 NON ORGANIC SLEEP DISORDERS 06/01/2009 780.93 mem ory lapses or loss 06/01/2009 784.0 headache 06/01/2009 786.05 gerri rtness of breath 06/01/2009 307.40 NON ORGANIC SLEEP DISORDERS 06/01/2009 780.93 mem ory lapses or loss 06/01/2009 784.0 headache 06/01/2009 786.05 gerri rtness of breath 06/01/2009 307.40 NON ORGANIC SLEEP DISORDERS 06/01/2009 780.93 mem ory lapses or loss 06/01/2009 784.0 headache 06/01/2009 786.05 gerri rtness of breath 06/01/2009 307.40 NON ORGANIC SLEEP DISORDERS 06/01/2009 780.93 mem ory lapses or loss 06/01/2009 784.0 headache 06/01/2009 786.05 gerri rtness of breath 06/01/2009 307.40 NON ORGANIC SLEEP DISORDERS 06/01/2009 780.93 mem ory lapses or loss 06/01/2009 784.0 headache 06/01/2009 786.05 gerri rtness of breath 06/01/2009 307.40 NON ORGANIC SLEEP DISORDERS 06/01/2009 780.93 mem ory lapses or loss 06/01/2009 784.0 headache 06/01/2009 786.05 gerri rtness of breath 06/01/2009 307.40 NON ORGANIC SLEEP DISORDERS 06/01/2009 780.93 mem ory lapses or loss 06/01/2009 784.0 headache 06/01/2009 786.05 gerri rtness of breath 06/01/2009 307.40 NON ORGANIC SLEEP DISORDERS 06/01/2009 780.93 mem ory lapses or loss 06/01/2009 784.0 headache 06/01/2009 786.05 gerri rtness of breath 06/01/2009 307.40 NON ORGANIC SLEEP DISORDERS 06/01/2009 780.93 mem ory lapses or loss 06/01/2009 784.0 headache 06/01/2009 786.05 gerri rtness of breath 06/01/2009 307.40 NON ORGANIC SLEEP DISORDERS 06/01/2009 780.93 mem ory lapses or loss 06/01/2009 784.0 headache 06/01/2009 786.05 gerri rtness of breath 06/01/2009 307.40 NON ORGANIC SLEEP DISORDERS 06/01/2009 780.93 mem ory lapses or loss 06/01/2009 784.0 headache 06/01/2009 786.05 gerri rtness of breath 06/01/2009 LOPEZ DO, JESSE K 307.40 NONORGANIC SLEEP DISORDERS 06/01/2009 LOPEZ DO, JESSE K 780.93 memory lapses or loss 06/01/2009 LOPEZ DO, JESSE K 784.0 headache 06/01/2009 LOPEZ DO, JESSE K 786.05 shortness of breath 06/01/2009 ABHISHEK TADEO APRN R 307.40 NONORGANIC SLEEP DISORDERS 06/01/2009 ABHISHEK TADEO APRN R 780.93 memory lapses or loss 06/01/2009 TADEO STEM CUTTER, ABHISHEK R 784.0 headache 06/01/2009 CARLYLE NETTLES, ABHISHEK R 786.05 shortness of breath 06/01/2009 SARAH [...] shortness of breath 06/01/2009 YAMILETH LAURENT MD 307.4 0 NONORGANIC SLEEP DISORDERS 06/01/2009 YAMILETH LAURENT MD 780.9 3 memory lapses or loss 06/01/2009 YAMILETH LAURENT MD 784.0 headache 06/01/2009 YAMILETH LAURENT MD 786.0 5 shortness of breath 06/01/2009 YAMILETH LAURENT MD 307.4 0 NONORGANIC SLEEP DISORDERS 06/01/2009 YAMILETH LAURENT MD 780.9 3 memory lapses or loss 06/01/2009 YAMILETH LAURENT MD 784.0 headache 06/01/2009 YAMILETH LAURENT MD 786.0 5 shortness of breath 06/01/2009 LOPEZ DO, JESSE [...] shortness of breath 06/01/2009 YAMILETH LAURENT MD 307.4 0 NONORGANIC SLEEP DISORDERS 06/01/2009 YAMILETH LAURENT MD 780.9 3 memory lapses or loss 06/01/2009 YAMILETH LAURENT MD 784.0 headache 06/01/2009 YAMILETH LAURENT MD 786.0 5 shortness of breath 06/01/2009 YAMILETH LAURENT MD 307.4 0 NONORGANIC SLEEP DISORDERS 06/01/2009 YAMILETH LAURENT MD 780.9 3 MEMORY LAPSES OR LOSS 06/01/2009 YAMILETH LAURENT MD 784.0 headache 06/01/2009 YAMILETH LAURENT MD 786.0 5 SHORTNESS OF BREATH 06/01/2009 LOPEZ DO, JESSE K 307.40 NONORGANIC SLEEP DISORDERS 06/01/2009 LOPEZ DO, JESSE K 780.93 MEMORY LAPSES OR LOSS 06/01/2009 LOPEZ DO, JESSE K 784.0 headache 06/01/2009 LOPEZ DO, JESSE K 786.05 SHORTNESS OF BREATH 06/01/2009 YAMILETH LAURENT MD 307.4 0 NONORGANIC SLEEP DISORDERS 06/01/2009 YAMILETH LAURENT MD 780.9 3 MEMORY LAPSES OR LOSS 06/01/2009 YAMILETH LAURENT MD 784.0 headache 06/01/2009 YAMILETH LAURENT MD 786.0 5 SHORTNESS OF BREATH 06/01/2009 ZENA UMANZOR APRN 307.40 NONORGANIC SLEEP DISORDERS 06/01/2009 ZENA UMANZOR APRN 780.93 MEMORY LAPSES OR LOSS 06/01/2009 ZENA UMANZOR APRN 78 4.0 headache 06/01/2009 ZENA UMANZOR APRN 786.05 SHORTNESS OF BREATH 06/01/2009 ZENA UMANZOR APRN 307.40 NONORGANIC SLEEP DISORDERS 06/01/2009 ZENA UMANZOR APRN 780.93 MEMORY LAPSES OR LOSS 06/01/2009 ZENA UMANZOR APRN T 78 4.0 headache 06/01/2009 ZENA UMANZOR APRN T 786.05 SHORTNESS OF BREATH 06/01/2009 ZENA UMANZOR APRN T 307.40 NONORGANIC SLEEP DISORDERS 06/01/2009 ZENA UMANZOR APRN 780.93 MEMORY LAPSES OR LOSS 06/01/2009 ZENA UMANZOR APRN 78 4.0 headache 06/01/2009 ZENA UMANZOR APRN T 786.05 SHORTNESS OF BREATH 06/01/2009 ZENA UMANZOR APRN T 307.40 NONORGANIC SLEEP DISORDERS 06/01/2009 ZENA UMANZOR APRN T 780.93 MEMORY LAPSES OR LOSS 06/01/2009 ZENA UMANZOR APRN T 78 4.0 headache 06/01/2009 ZENA UMANZOR APRN T 786.05 [...] OR LOSS 06/01/2009 ZENA UMANZOR APRN T 78 4.0 headache 06/01/2009 ZENA UMANZOR APRN T 786.05 SHORTNESS OF BREATH 06/01/2009 ZENA UMANZOR APRN T 307.40 NONORGANIC SLEEP DISORDERS 06/01/2009 ZENA UMANZOR APRN T 780.93 MEMORY LAPSES OR LOSS 06/01/2009 ZENA UMANZOR APRN 78 4.0 headache 06/01/2009 ZENA UMANZOR APRN T 786.05 SHORTNESS OF BREATH 06/01/2009 ZENA UMANZOR APRN T 307.40 NONORGANIC SLEEP DISORDERS 06/01/2009 ZENA UMANZOR APRN 780.93 MEMORY LAPSES OR LOSS 06/01/2009 ZENA UMANZOR APRN 78 4.0 headache 06/01/2009 ZENA UMANZOR APRN 786.05 SHORTNESS OF BREATH 06/01/2009 ZENA UMANZOR APRN 307.40 NONORGANIC SLEEP DISORDERS 06/01/2009 ZENA UMANZOR APRN 780.93 MEMORY LAPSES OR LOSS 06/01/2009 ZENA UMANZOR APRN 78 4.0 headache 06/01/2009 ZENA UMANZOR APRN 786.05 SHORTNESS OF BREATH 06/01/2009 ZENA UMANZOR APRN T 307.40 NONORGANIC SLEEP DISORDERS 06/01/2009 ZENA UMANZOR APRN 780.93 MEMORY LAPSES OR LOSS 06/01/2009 ZENA UMANZOR APRN 78 4.0 headache 06/01/2009 ZENA UMANZOR APRN 786.05 SHORTNESS [...] OR LOSS 06/01/2009 ZENA UMANZOR APRN T 78 4.0 headache 06/01/2009 ZENA UMANZOR APRN T 786.05 SHORTNESS OF BREATH 06/01/2009 ZENA UMANZOR APRN T 307.40 NONORGANIC SLEEP DISORDERS 06/01/2009 ZENA UMANZOR APRN T 780.93 MEMORY LAPSES OR LOSS 06/01/2009 ZEAN UMANZOR APRN T 78 4.0 headache 06/01/2009 ZENA UMANZOR APRN 786.05 SHORTNESS OF BREATH 06/01/2009 YAMILETH LAURENT MD 307.4 0 NONORGANIC SLEEP DISORDERS 06/01/2009 YAMILETH LAURENT MD 780.9 3 MEMORY LAPSES OR LOSS 06/01/2009 YAMILETH LAURENT MD 784.0 headache 06/01/2009 YAMILETH LAURENT MD 786.0 5 SHORTNESS OF BREATH 06/01/2009 ZENA UMANZOR APRN 307.40 NONORGANIC SLEEP DISORDERS 06/01/2009 ZENA UMANZOR APRN T 780.93 MEMORY LAPSES OR LOSS 06/01/2009 ZENA UMANZOR APRN 78 4.0 headache 06/01/2009 ZENA UMANZOR APRN 786.05 SHORTNESS OF BREATH 06/01/2009 ZENA UMANZOR APRN T 307.40 NONORGANIC SLEEP DISORDERS 06/01/2009 ZENA UMANZOR APRN 780.93 MEMORY LAPSES OR LOSS 06/01/2009 ZENA UMANZOR APRN 78 4.0 headache 06/01/2009 ZENA UMANZOR APRN T 786.05 SHORTNESS OF BREATH 06/01/2009 ZENA UMANZOR APRN T 307.40 NONORGANIC SLEEP DISORDERS 06/01/2009 ZENA UMANZOR APRN T 780.93 MEMORY LAPSES OR LOSS 06/01/2009 ZENA UMANZOR APRN 78 4.0 headache 06/01/2009 ZENA UMANZOR APRN T 786.05 SHORTNESS OF BREATH 06/01/2009 ZENA UMANZOR APRN T 307.40 NONORGANIC SLEEP DISORDERS 06/01/2009 ZENA UMANZOR APRN T 780.93 MEMORY LAPSES OR LOSS 06/01/2009 ZENA UMANZOR APRN 78 4.0 headache 06/01/2009 ZENA UMANZOR APRN 786.05 SHORTNESS OF BREATH 06/01/2009 ZENA UMANZOR APRN 307.40 NONORGANIC SLEEP DISORDERS 06/01/2009 ZENA UMANZOR APRN 780.93 MEMORY LAPSES OR LOSS 06/01/2009 ZENA UMANZOR APRN 78 4.0 headache 06/01/2009 ZENA UMANZOR APRN 786.05 SHORTNESS OF BREATH 06/01/2009 ZENA UMANZOR APRN 307.40 NONORGANIC SLEEP DISORDERS 06/01/2009 ZENA UMANZOR APRN 780.93 MEMORY LAPSES OR LOSS 06/01/2009 ZENA UMANZOR APRN 78 4.0 headache 06/01/2009 ZENA UMANZOR APRN 786.05 SHORTNESS [...] LAPSES OR LOSS 06/01/2009 ZENA UMANZOR APRN 78 4.0 headache 06/01/2009 ZENA UMANZOR APRN 786.05 SHORTNESS OF BREATH 06/01/2009 ZENA UMANZOR APRN 307.40 NONORGANIC SLEEP DISORDERS 06/01/2009 ZENA UMANZOR APRN 780.93 MEMORY LAPSES OR LOSS 06/01/2009 ZENA UMANZOR APRN 78 4.0 headache 06/01/2009 ZENA UMANZOR APRN 786.05 SHORTNESS [...] LAPSES OR LOSS 06/01/2009 ZENA UMANZOR APRN 78 4.0 headache 06/01/2009 ZENA UMANZOR APRN 786.05 SHORTNESS OF BREATH 06/01/2009 KENDALL OTTO MD 307. 40 NONORGANIC SLEEP DISORDERS 06/01/2009 KENDALL OTTO MD 780. 93 memory lapses or loss 06/01/2009 KENDALL OTTO MD 784. 0 headache 06/01/2009 KENDALL OTTO MD 786. 05 shortness of breath 07/15/2009 Ot 716.90 07/15/2009 Ot 780.59 07/15/2009 Ot 782.3 07/15/2009 Ot 786.05 08/23/2009 Ot 305.1 08/23/2009 Ot 786.05 05/08/2010 KENDALL OTTO MD 719. 46 PAIN IN JOINT, LOWER LEG 05/08/2010 JESSE LOPEZ DO 719.46 PAIN IN JOINT, LOWER LEG 05/08/2010 719.46 BARBARA N IN JOINT, LOWER LEG 05/08/2010 719.46 BARBARA N IN JOINT, LOWER LEG 05/08/2010 719.46 BARBARA N IN JOINT, LOWER LEG 05/08/2010 719.46 BARBARA N IN JOINT, LOWER LEG 05/08/2010 719.46 BARBARA N IN JOINT, LOWER LEG 05/08/2010 719.46 BARBARA N IN JOINT, LOWER LEG 05/08/2010 719.46 BARBARA N IN JOINT, LOWER LEG 05/08/2010 719.46 BARBARA N IN JOINT, LOWER LEG 05/08/2010 719.46 BARBARA N IN JOINT, LOWER LEG 05/08/2010 719.46 BARBARA N IN JOINT, LOWER LEG 05/08/2010 719.46 BARBARA N IN JOINT, LOWER LEG 05/08/2010 719.46 BARBARA N IN JOINT, LOWER LEG 05/08/2010 719.46 BARBARA N IN JOINT, LOWER LEG 05/08/2010 719.46 BARBARA N IN JOINT, LOWER LEG 05/08/2010 719.46 BARBARA N IN JOINT, LOWER LEG 05/08/2010 719.46 BARBARA N IN JOINT, LOWER LEG 05/08/2010 719.46 BARBARA N IN JOINT, LOWER LEG 05/08/2010 719.46 BARBARA N IN JOINT, LOWER LEG 05/08/2010 719.46 BARBARA N IN JOINT, LOWER LEG 05/08/2010 719.46 BARBARA N IN JOINT, LOWER LEG 05/08/2010 719.46 BARBARA N IN JOINT, LOWER LEG 05/08/2010 719.46 BARBARA N IN JOINT, LOWER LEG 05/08/2010 JESSE LOPEZ DO K 719.46 PAIN IN JOINT, LOWER LEG [...] IN JOINT, LOWER LEG 05/08/2010 YAMILETH LAURENT MD 719.4 6 PAIN IN JOINT, LOWER LEG 05/08/2010 YAMILETH LAURENT MD9.4 6 PAIN IN JOINT, LOWER LEG 05/08/2010 LOPEZ DO, JESSE K 719.46 PAIN IN JOINT, LOWER LEG 05/08/2010 LOPEZ DOJESSE 719.46 PAIN IN JOINT, LOWER LEG 05/08/2010 LOPEZ DOJESSE K 719.46 PAIN IN JOINT, LOWER LEG 05/08/2010 LOPEZ DOJESSE K 719.46 PAIN IN JOINT, LOWER LEG 05/08/2010 YAMILETH LAURENT MD 719.4 6 PAIN IN JOINT, LOWER LEG 05/08/2010 YAMILETH LAURENT MD.4 6 PAIN IN JOINT, LOWER LEG 05/08/2010 JESSE LOPEZ DO 719.46 PAIN IN JOINT, LOWER LEG 05/08/2010 YAMILETH LAURENT MD.4 6 PAIN IN JOINT, LOWER LEG 05/08/2010 ZENA UMANZOR APRN 719.46 PAIN IN JOINT, LOWER LEG 05/08/2010 ZENA UMANZOR APRN 719.46 PAIN IN JOINT, LOWER LEG 05/08/2010 ZENA MUANZOR APRN T 719.46 PAIN IN JOINT, LOWER [...] JOINT, LOWER LEG 05/08/2010 ANASTASIIA DAVIS, YAMILETH 719.4 6 PAIN IN JOINT, LOWER LEG 05/08/2010 ZENA [...] 719.46 PAIN IN JOINT, LOWER LEG 05/08/2010 FAM DAVIS, KENDALL 719. 46 PAIN IN JOINT, LOWER LEG 05/17/2010 FAM DAVIS, KENDALL 717. 7 CHONDROMALACIA OF [place] 05/17/2010 JESSE LOPEZ DO 717.7 CHONDROMALACIA OF [place] 05/17/2010 717.7 CAROLANN DROMALACIA OF [place] 05/17/2010 717.7 CAROLANN DROMALACIA OF [place] 05/17/2010 717.7 CAROLANN DROMALACIA OF [place] 05/17/2010 717.7 CAROLANN DROMALACIA OF [place] 05/17/2010 717.7 CAROLANN DROMALACIA OF [place] 05/17/2010 717.7 CAROLANN DROMALACIA OF [place] 05/17/2010 717.7 CAROLANN DROMALACIA OF [place] 05/17/2010 717.7 CAROLANN DROMALACIA OF [place] 05/17/2010 717.7 CAROLANN DROMALACIA OF [place] 05/17/2010 717.7 CAROLANN DROMALACIA OF [place] 05/17/2010 717.7 CAROLANN DROMALACIA OF [place] 05/17/2010 717.7 CAROLANN DROMALACIA OF [place] 05/17/2010 717.7 CAROLANN DROMALACIA OF [place] 05/17/2010 717.7 CAROLANN DROMALACIA OF [place] 05/17/2010 717.7 CAROLANN DROMALACIA OF [place] 05/17/2010 717.7 CAROLANN DROMALACIA OF [place] 05/17/2010 717.7 CAROLANN DROMALACIA OF [place] 05/17/2010 717.7 CAROLANN DROMALACIA OF [place] 05/17/2010 717.7 CAROLANN DROMALACIA OF [place] 05/17/2010 717.7 CAROLANN DROMALACIA OF [place] 05/17/2010 717.7 CAROLANN DROMALACIA OF [place] 05/17/2010 717.7 CAROLANN DROMALACIA OF [place] 05/17/2010 JESSE LOPEZ DO 717.7 CHONDROMALACIA OF [place] 05/17/2010 ABHISHEK TADEO APRN 717.7 CHONDROMALACIA OF [place] 05/17/2010 JUDY DAVIS, SARAH Law 717.7 CHONDROMALACIA OF [place] 05/17/2010 SARAH KIM MD 717.7 CHONDROMALACIA OF [place] 05/17/2010 SARAH KIM MD 717.7 CHONDROMALACIA OF [place] 05/17/2010 SARAH KIM MD 717.7 CHONDROMALACIA OF [place] 05/17/2010 SARAH KIM MD 717.7 CHONDROMALACIA OF [place] 05/17/2010 YAMILETH LAURENT MD.7 CHONDROMALACIA OF [place] 05/17/2010 YAMILETH LAURENT MD7.7 CHONDROMALACIA OF [place] 05/17/2010 JOHN CASE JESSE K 717.7 CHONDROMALACIA OF [place] 05/17/2010 LOPEZ CLEO CASEA K 717.7 CHONDROMALACIA OF [place] 05/17/2010 JOHN CASE JESSE K 717.7 CHONDROMALACIA OF [place] 05/17/2010 JOHN CASE JESSE K 717.7 CHONDROMALACIA OF [place] 05/17/2010 YAMILETH LAURENT MD7.7 CHONDROMALACIA OF [place] 05/17/2010 YAMILETH LAURENT MD7.7 CHONDROMALACIA OF [place] 05/17/2010 CLEO LOPEZ DOA K 717.7 CHONDROMALACIA OF [place] 05/17/2010 YAMILETH LAURENT MD7.7 CHONDROMALACIA OF [place] 05/17/2010 ZENA UMANZOR APRN T 71 7.7 CHONDROMALACIA OF [place] 05/17/2010 ZENA UMANZOR APRN T 71 7.7 CHONDROMALACIA OF [place] 05/17/2010 ZENA UMANZOR APRN T 71 7.7 CHONDROMALACIA OF [place] 05/17/2010 ZENA UMANZOR APRN T 71 7.7 CHONDROMALACIA OF [place] 05/17/2010 JESSE LOPEZ DO K 717.7 CHONDROMALACIA OF [place] 05/17/2010 ZENA UMANZOR APRN T 71 7.7 CHONDROMALACIA OF [place] 05/17/2010 ZENA UMANZOR APRN T 71 7.7 CHONDROMALACIA OF [place] 05/17/2010 ZENA UMANZOR APRN T 71 7.7 CHONDROMALACIA OF [place] 05/17/2010 ZENA UMANZOR APRN T 71 7.7 CHONDROMALACIA OF [place] 05/17/2010 ZENA UMANZOR APRN T 71 7.7 CHONDROMALACIA OF [place] 05/17/2010 CLEO LOPEZ DOA K 717.7 CHONDROMALACIA OF [place] 05/17/2010 LOPEZ DO JESSE K 717.7 CHONDROMALACIA OF [place] 05/17/2010 ZENA UMANZOR APRN T 71 7.7 CHONDROMALACIA OF [place] 05/17/2010 ZENA UMANZOR APRN T 71 7.7 CHONDROMALACIA OF [place] 05/17/2010 YAMILETH LAURENT MD 717.7 CHONDROMALACIA OF [place] 05/17/2010 ZENA UMANZOR APRN T 71 7.7 CHONDROMALACIA OF [place] 05/17/2010 ZENA UMANZOR APRN T 71 7.7 CHONDROMALACIA OF [place] 05/17/2010 ZENA UMANZOR APRN T 71 7.7 CHONDROMALACIA OF [place] 05/17/2010 ZENA UMANZOR APRN T 71 7.7 CHONDROMALACIA OF [place] 05/17/2010 ZENA UMANZOR APRN T 71 7.7 CHONDROMALACIA OF [place] 05/17/2010 ZNEA UMANZOR APRN T 71 7.7 CHONDROMALACIA OF [place] 05/17/2010 JESSE LOPEZ DO K 717.7 CHONDROMALACIA OF [place] 05/17/2010 ZENA UMANZOR APRN T 71 7.7 CHONDROMALACIA OF [place] 05/17/2010 ZENA UMANZOR APRN T 71 7.7 CHONDROMALACIA OF [place] 05/17/2010 CLEO LOPEZ DOA K 717.7 CHONDROMALACIA OF [place] 05/17/2010 CLEO LOPEZ DOA K 717.7 CHONDROMALACIA OF [place] 05/17/2010 ZENA UMANZOR APRN T 71 7.7 CHONDROMALACIA OF [place] 05/17/2010 KENDALL OTTO MD 717. 7 CHONDROMALACIA OF [place] 06/12/2010 KENDALL OTTO MD 278. 00 OBESITY, UNSPECIFIED 06/12/2010 CLEO LOPEZ DOA K 278.00 OBESITY, UNSPECIFIED 06/12/2010 278.00 OBE SITY, UNSPECIFIED 06/12/2010 278.00 OBE SITY, UNSPECIFIED 06/12/2010 278.00 OBE SITY, UNSPECIFIED 06/12/2010 278.00 OBE SITY, UNSPECIFIED 06/12/2010 278.00 OBE SITY, UNSPECIFIED 06/12/2010 278.00 OBE SITY, UNSPECIFIED 06/12/2010 278.00 OBE SITY, UNSPECIFIED 06/12/2010 278.00 OBE SITY, UNSPECIFIED 06/12/2010 278.00 OBE SITY, UNSPECIFIED 06/12/2010 278.00 OBE SITY, UNSPECIFIED 06/12/2010 278.00 OBE SITY, UNSPECIFIED 06/12/2010 278.00 OBE SITY, UNSPECIFIED 06/12/2010 278.00 OBE SITY, UNSPECIFIED 06/12/2010 278.00 OBE SITY, UNSPECIFIED 06/12/2010 278.00 OBE SITY, UNSPECIFIED 06/12/2010 278.00 OBE SITY, UNSPECIFIED 06/12/2010 278.00 OBE SITY, UNSPECIFIED 06/12/2010 278.00 OBE SITY, UNSPECIFIED 06/12/2010 278.00 OBE SITY, UNSPECIFIED 06/12/2010 278.00 OBE SITY, UNSPECIFIED 06/12/2010 278.00 OBE SITY, UNSPECIFIED 06/12/2010 278.00 OBE SITY, UNSPECIFIED 06/12/2010 LOPEZ DO, JESSE K 278.00 OBESITY, UNSPECIFIED 06/12/2010 ABHISHEK TADEO APRN 278.00 OBESITY, UNSPECIFIED 06/12/2010 JUDY DAVIS, SARAH Law 278.00 OBESITY, UNSPECIFIED 06/12/2010 JUDY DAVIS, SARAH Law 278.00 OBESITY, UNSPECIFIED 06/12/2010 JUDY DAVIS, SARAH Law 278.00 OBESITY, UNSPECIFIED 06/12/2010 JUDY DAVIS, SARAH Law 278.00 OBESITY, UNSPECIFIED 06/12/2010 JUDY DAVIS, SARAH Law 278.00 OBESITY, UNSPECIFIED 06/12/2010 YAMILETH LAURENT MD 278.0 0 OBESITY, UNSPECIFIED 06/12/2010 YAMILETH LAURENT MD 278.0 0 OBESITY, UNSPECIFIED 06/12/2010 LOPEZ DO, JESSE K 278.00 OBESITY, UNSPECIFIED 06/12/2010 LOPEZ DO, JESSE K 278.00 OBESITY, UNSPECIFIED 06/12/2010 LOPEZ DO, JESSE K 278.00 OBESITY, UNSPECIFIED 06/12/2010 LOPEZ DO, JESSE K 278.00 OBESITY, UNSPECIFIED 06/12/2010 YAMILETH LAURENT MD 278.0 0 OBESITY, UNSPECIFIED 06/12/2010 YAMILETH LAURENT MD 278.0 0 OBESITY, UNSPECIFIED 06/12/2010 LOPEZ DO, JESSE K 278.00 OBESITY, UNSPECIFIED 06/12/2010 YAMILETH LAURENT MD 278.0 0 OBESITY, UNSPECIFIED 06/12/2010 NOÉ STEM CUTTER, ZENA T 278.00 OBESITY, UNSPECIFIED 06/12/2010 NOÉ STEM CUTTER, ZENA T 278.00 OBESITY, UNSPECIFIED 06/12/2010 NOÉ STEM CUTTER, ZENA T 278.00 OBESITY, UNSPECIFIED 06/12/2010 NOÉ STEM CUTTER, ZENA T 278.00 OBESITY, UNSPECIFIED 06/12/2010 LOPEZ DO, JESSE K 278.00 OBESITY, UNSPECIFIED 06/12/2010 NOÉ STEM CUTTER, ZENA T 278.00 OBESITY, UNSPECIFIED 06/12/2010 NOÉ STEM CUTTER, ZENA T 278.00 OBESITY, UNSPECIFIED 06/12/2010 NOÉ STEM CUTTER, ZENA T 278.00 OBESITY, UNSPECIFIED 06/12/2010 NOÉ STEM CUTTER, ZENA T 278.00 OBESITY, UNSPECIFIED 06/12/2010 NOÉ STEM CUTTER, ZENA T 278.00 OBESITY, UNSPECIFIED 06/12/2010 LOPEZ DO, JESSE K 278.00 OBESITY, UNSPECIFIED 06/12/2010 LOPEZ DO, JESSE K 278.00 OBESITY, UNSPECIFIED 06/12/2010 NOÉ STEM CUTTER, ZENA T 278.00 OBESITY, UNSPECIFIED 06/12/2010 NOÉ STEM CUTTER, ZENA T 278.00 OBESITY, UNSPECIFIED 06/12/2010 YAMILETH LAURENT MD 278.0 0 OBESITY, UNSPECIFIED 06/12/2010 NOÉ STEM CUTTER, ZENA T 278.00 OBESITY, UNSPECIFIED 06/12/2010 NOÉ STEM CUTTER, ZENA T 278.00 OBESITY, UNSPECIFIED 06/12/2010 NOÉ STEM CUTTER, ZENA T 278.00 OBESITY, UNSPECIFIED 06/12/2010 NOÉ STEM CUTTER, ZENA T 278.00 OBESITY, UNSPECIFIED 06/12/2010 NOÉ STEM CUTTER, ZENA T 278.00 OBESITY, UNSPECIFIED 06/12/2010 NOÉ STEM CUTTER, ZENA T 278.00 OBESITY, UNSPECIFIED 06/12/2010 LOPEZ DO, JESSE K 278.00 OBESITY, UNSPECIFIED 06/12/2010 NOÉ STEM CUTTER, ZENA T 278.00 OBESITY, UNSPECIFIED 06/12/2010 NOÉ STEM CUTTER, ZENA T 278.00 OBESITY, UNSPECIFIED 06/12/2010 LOPEZ DO, JESSE K 278.00 OBESITY, UNSPECIFIED 06/12/2010 LOPEZ DO, JESSE K 278.00 OBESITY, UNSPECIFIED 06/12/2010 NOÉ WHITEN, ZENA Shrestha 278.00 OBESITY, UNSPECIFIED 06/12/2010 FAM DAVIS, KENDALL 278. 00 OBESITY, UNSPECIFIED 06/18/2010 FAM DAVIS, KENDALL 288. 60 Leukocytosis, Unspecified 06/18/2010 JESSE LOPEZ DO 288.60 Leukocytosis, Unspecified 06/18/2010 288.60 Dominguez kocytosis, Unspecified 06/18/2010 288.60 Dominguez kocytosis, Unspecified 06/18/2010 288.60 Dominguez kocytosis, Unspecified 06/18/2010 288.60 Dominguez kocytosis, Unspecified 06/18/2010 288.60 Dominguez kocytosis, Unspecified 06/18/2010 288.60 Dominguez kocytosis, Unspecified 06/18/2010 288.60 Dominguez kocytosis, Unspecified 06/18/2010 288.60 Dominguez kocytosis, Unspecified 06/18/2010 288.60 Dominguez kocytosis, Unspecified 06/18/2010 288.60 Dominguez kocytosis, Unspecified 06/18/2010 288.60 Dominguez kocytosis, Unspecified 06/18/2010 288.60 Dominguez kocytosis, Unspecified 06/18/2010 288.60 Dominguez kocytosis, Unspecified 06/18/2010 288.60 Dominguez kocytosis, Unspecified 06/18/2010 288.60 Dominguez kocytosis, Unspecified 06/18/2010 288.60 Dominguez kocytosis, Unspecified 06/18/2010 288.60 Dominguez kocytosis, Unspecified 06/18/2010 288.60 Dominguez kocytosis, Unspecified 06/18/2010 288.60 Dominguez kocytosis, Unspecified 06/18/2010 288.60 Dominguez kocytosis, Unspecified 06/18/2010 288.60 Dominguez kocytosis, Unspecified 06/18/2010 288.60 Dominguez kocytosis, Unspecified 06/18/2010 JESSE LOPEZ DO 288.60 Leukocytosis, Unspecified 06/18/2010 CARLYLE WHITEN, ABHISHEK R 288.60 Leukocytosis, Unspecified 06/18/2010 JUDY DAVIS, SARAH Law 288.60 Leukocytosis, Unspecified 06/18/2010 JUDY DAVIS, SARAH Law 288.60 Leukocytosis, Unspecified 06/18/2010 SARAH KIM MD 288.60 Leukocytosis, Unspecified 06/18/2010 SARAH KIM MD M 288.60 Leukocytosis, Unspecified 06/18/2010 SARAH KIM MD 288.60 Leukocytosis, Unspecified 06/18/2010 YAMILETH LAURENT MD 288.6 0 Leukocytosis, Unspecified 06/18/2010 YAMILETH LAURENT MD 288.6 0 Leukocytosis, Unspecified 06/18/2010 LOPEZ DO, JESSE K 288.60 Leukocytosis, Unspecified 06/18/2010 LOPEZ DO, JESSE K 288.60 Leukocytosis, Unspecified 06/18/2010 LOPEZ DO, JESSE K 288.60 Leukocytosis, Unspecified 06/18/2010 LOPEZ DO, JESSE K 288.60 Leukocytosis, Unspecified 06/18/2010 YAMILETH LAURENT MD 288.6 0 Leukocytosis, Unspecified 06/18/2010 YAMILETH LAURENT MD 288.6 0 Leukocytosis, Unspecified 06/18/2010 LOPEZ DO, JESSE K 288.60 Leukocytosis, Unspecified 06/18/2010 YAMILETH LAURENT MD 288.6 0 Leukocytosis, Unspecified 06/18/2010 NOÉ STEM CUTTER, ZENA T 288.60 Leukocytosis, Unspecified 06/18/2010 NOÉ STEM CUTTER, ZENA T 288.60 Leukocytosis, Unspecified 06/18/2010 NOÉ NETTLES ZENA T 288.60 Leukocytosis, Unspecified 06/18/2010 NOÉ NETTLES, ZENA T 288.60 Leukocytosis, Unspecified 06/18/2010 LOPEZ DO, JESSE K 288.60 Leukocytosis, Unspecified 06/18/2010 NOÉ STEM CUTTER, ZENA T 288.60 Leukocytosis, Unspecified 06/18/2010 NOÉ STEM CUTTER, ZENA T 288.60 Leukocytosis, Unspecified 06/18/2010 NOÉ STEM CUTTER, ZENA T 288.60 Leukocytosis, Unspecified 06/18/2010 NOÉ STEM CUTTER, ZENA T 288.60 Leukocytosis, Unspecified 06/18/2010 NOÉ STEM CUTTER, ZENA T 288.60 Leukocytosis, Unspecified 06/18/2010 LOPEZ DO, JESSE K 288.60 Leukocytosis, Unspecified 06/18/2010 LOPEZ DO, JESSE K 288.60 Leukocytosis, Unspecified 06/18/2010 NOÉ WHITEN, ZENA T 288.60 Leukocytosis, Unspecified 06/18/2010 NOÉ STEM CUTTER, ZENA T 288.60 Leukocytosis, Unspecified 06/18/2010 YAMILETH LAURENT MD 288.6 0 Leukocytosis, Unspecified 06/18/2010 NOÉ STEM CUTTER, ZENA T 288.60 Leukocytosis, Unspecified 06/18/2010 NOÉ STEM CUTTER, ZENA T 288.60 Leukocytosis, Unspecified 06/18/2010 NOÉ STEM CUTTER, ZENA T 288.60 Leukocytosis, Unspecified 06/18/2010 NOÉ STEM CUTTER, ZENA T 288.60 Leukocytosis, Unspecified 06/18/2010 NOÉ STEM CUTTER, ZENA T 288.60 Leukocytosis, Unspecified 06/18/2010 NOÉ STEM CUTTER, ZENA T 288.60 Leukocytosis, Unspecified 06/18/2010 JOHN CASE JESSE K 288.60 Leukocytosis, Unspecified 06/18/2010 NOÉ STEM CUTTER, ZENA T 288.60 Leukocytosis, Unspecified 06/18/2010 NOÉ STEM CUTTER, ZENA T 288.60 Leukocytosis, Unspecified 06/18/2010 JOHN CASE JESSE K 288.60 Leukocytosis, Unspecified 06/18/2010 JOHN CASE JESSE K 288.60 Leukocytosis, Unspecified 06/18/2010 NOÉ NETTLES ZENA T 288.60 Leukocytosis, Unspecified 06/18/2010 KENDALL OTTO MD 288. 60 Leukocytosis, Unspecified 09/03/2010 Ot 717.7 11/23/2010 KENDALL OTTO MD V68. 1 ISSUE OF REPEAT PRESCRIPTIONS 11/23/2010 JESSE LOPEZ DO K V68.1 ISSUE OF REPEAT PRESCRIPTIONS 11/23/2010 V68.1 ISSU E OF REPEAT PRESCRIPTIONS 11/23/2010 V68.1 ISSU E OF REPEAT PRESCRIPTIONS 11/23/2010 V68.1 ISSU E OF REPEAT PRESCRIPTIONS 11/23/2010 V68.1 ISSU E OF REPEAT PRESCRIPTIONS 11/23/2010 V68.1 ISSU E OF REPEAT PRESCRIPTIONS 11/23/2010 V68.1 ISSU E OF REPEAT PRESCRIPTIONS 11/23/2010 V68.1 ISSU E OF REPEAT PRESCRIPTIONS 11/23/2010 V68.1 ISSU E OF REPEAT PRESCRIPTIONS 11/23/2010 V68.1 ISSU E OF REPEAT PRESCRIPTIONS 11/23/2010 V68.1 ISSU E OF REPEAT PRESCRIPTIONS 11/23/2010 V68.1 ISSU E OF REPEAT PRESCRIPTIONS 11/23/2010 V68.1 ISSU E OF REPEAT PRESCRIPTIONS 11/23/2010 V68.1 ISSU E OF REPEAT PRESCRIPTIONS 11/23/2010 V68.1 ISSU E OF REPEAT PRESCRIPTIONS 11/23/2010 V68.1 ISSU E OF REPEAT PRESCRIPTIONS 11/23/2010 V68.1 ISSU E OF REPEAT PRESCRIPTIONS 11/23/2010 V68.1 ISSU E OF REPEAT PRESCRIPTIONS 11/23/2010 V68.1 ISSU E OF REPEAT PRESCRIPTIONS 11/23/2010 V68.1 ISSU E OF REPEAT PRESCRIPTIONS 11/23/2010 V68.1 ISSU E OF REPEAT PRESCRIPTIONS 11/23/2010 V68.1 ISSU E OF REPEAT PRESCRIPTIONS 11/23/2010 V68.1 ISSU E OF REPEAT PRESCRIPTIONS 11/23/2010 JESSE LOPEZ DO [...] OF REPEAT PRESCRIPTIONS 11/23/2010 ZENA UMANZOR APRN V6 8.1 ISSUE OF REPEAT PRESCRIPTIONS 11/23/2010 ZENA UMANZOR APRN V6 8.1 ISSUE OF REPEAT PRESCRIPTIONS 11/23/2010 ZENA UMANZOR APRN V6 8.1 ISSUE OF REPEAT PRESCRIPTIONS 11/23/2010 ZENA UMANZOR APRN V6 8.1 ISSUE OF REPEAT PRESCRIPTIONS 11/23/2010 LOPEZ DO, JESSE K V68.1 ISSUE OF REPEAT PRESCRIPTIONS 11/23/2010 ZENA UMANZOR APRN V6 8.1 ISSUE OF REPEAT PRESCRIPTIONS 11/23/2010 ZENA UMANZOR APRN V6 8.1 ISSUE OF REPEAT PRESCRIPTIONS 11/23/2010 ZENA UMANZOR APRN V6 8.1 ISSUE OF REPEAT PRESCRIPTIONS 11/23/2010 ZENA UMANZOR APRN V6 8.1 ISSUE OF REPEAT PRESCRIPTIONS 11/23/2010 ZENA UMANZOR APRN V6 8.1 ISSUE OF REPEAT PRESCRIPTIONS 11/23/2010 LOPEZ DO, JESSE K V68.1 ISSUE OF REPEAT PRESCRIPTIONS 11/23/2010 LOPEZ DO, JESSE K V68.1 ISSUE OF REPEAT PRESCRIPTIONS 11/23/2010 ZENA UMANZOR APRN V6 8.1 ISSUE OF REPEAT PRESCRIPTIONS 11/23/2010 ZENA UMANZOR APRN V6 8.1 ISSUE OF REPEAT PRESCRIPTIONS 11/23/2010 YAMILETH LAURENT MD V68.1 ISSUE OF REPEAT PRESCRIPTIONS 11/23/2010 ZENA UMANZOR APRN V6 8.1 ISSUE OF REPEAT PRESCRIPTIONS 11/23/2010 ZENA UMANZOR APRN V6 8.1 ISSUE OF REPEAT PRESCRIPTIONS 11/23/2010 ZENA UMANZOR APRN V6 8.1 ISSUE OF REPEAT PRESCRIPTIONS 11/23/2010 ZENA UMANZOR APRN V6 8.1 ISSUE OF REPEAT PRESCRIPTIONS 11/23/2010 ZENA UMANZOR APRN V6 8.1 ISSUE OF REPEAT PRESCRIPTIONS 11/23/2010 ZENA UMANZOR APRN V6 8.1 ISSUE OF REPEAT PRESCRIPTIONS 11/23/2010 LOPEZ DO, JESSE K V68.1 ISSUE OF REPEAT PRESCRIPTIONS 11/23/2010 ZENA UMANZOR APRN V6 8.1 ISSUE OF REPEAT PRESCRIPTIONS 11/23/2010 ZENA UMANZOR APRN V6 8.1 ISSUE OF REPEAT PRESCRIPTIONS 11/23/2010 LOPEZ DO, JESSE K V68.1 ISSUE OF REPEAT PRESCRIPTIONS 11/23/2010 LOPEZ DO, JESSE K V68.1 ISSUE OF REPEAT PRESCRIPTIONS 11/23/2010 ZENA UMANZOR APRN V6 8.1 ISSUE OF REPEAT PRESCRIPTIONS 11/23/2010 KENDALL OTTO MD V68. 1 ISSUE OF REPEAT PRESCRIPTIONS 01/23/2011 KENDALL OTTO MD 787. 91 Diarrhea 01/23/2011 KENDALL OTTO MD 789. 00 Abdominal Pain Unspecified Site 01/23/2011 JESSE LOPEZ DO 787.91 Diarrhea 01/23/2011 JESSE LOPEZ DO 789.00 Abdominal Pain Unspecified Site 01/23/2011 787.91 Raul rrhea 01/23/2011 789.00 Abd ominal Pain Unspecified Site 01/23/2011 787.91 Raul rrhea 01/23/2011 789.00 Abd ominal Pain Unspecified Site 01/23/2011 787.91 Raul rrhea 01/23/2011 789.00 Abd ominal Pain Unspecified Site 01/23/2011 787.91 Raul rrhea 01/23/2011 789.00 Abd ominal Pain Unspecified Site 01/23/2011 787.91 Raul rrhea 01/23/2011 789.00 Abd ominal Pain Unspecified Site 01/23/2011 787.91 Raul rrhea 01/23/2011 789.00 Abd ominal Pain Unspecified Site 01/23/2011 787.91 Raul rrhea 01/23/2011 789.00 Abd ominal Pain Unspecified Site 01/23/2011 787.91 Raul rrhea 01/23/2011 789.00 Abd ominal Pain Unspecified Site 01/23/2011 787.91 Raul rrhea 01/23/2011 789.00 Abd ominal Pain Unspecified Site 01/23/2011 787.91 Raul rrhea 01/23/2011 789.00 Abd ominal Pain Unspecified Site 01/23/2011 787.91 Raul rrhea 01/23/2011 789.00 Abd ominal Pain Unspecified Site 01/23/2011 787.91 Raul rrhea 01/23/2011 789.00 Abd ominal Pain Unspecified Site 01/23/2011 787.91 Raul rrhea 01/23/2011 789.00 Abd ominal Pain Unspecified Site 01/23/2011 787.91 Raul rrhea 01/23/2011 789.00 Abd ominal Pain Unspecified Site 01/23/2011 787.91 Raul rrhea 01/23/2011 789.00 Abd ominal Pain Unspecified Site 01/23/2011 787.91 Raul rrhea 01/23/2011 789.00 Abd ominal Pain Unspecified Site 01/23/2011 787.91 Raul rrhea 01/23/2011 789.00 Abd ominal Pain Unspecified Site 01/23/2011 787.91 Raul rrhea 01/23/2011 789.00 Abd ominal Pain Unspecified Site 01/23/2011 787.91 Raul rrhea 01/23/2011 789.00 Abd ominal Pain Unspecified Site 01/23/2011 787.91 Raul rrhea 01/23/2011 789.00 Abd ominal Pain Unspecified Site 01/23/2011 787.91 Raul rrhea 01/23/2011 789.00 Abd ominal Pain Unspecified Site 01/23/2011 787.91 Raul rrhea 01/23/2011 789.00 Abd ominal Pain Unspecified Site 01/23/2011 LOPEZ JESSE CASE K 787.91 Diarrhea 01/23/2011 LOPEZ DOJESSE K 789.00 Abdominal Pain Unspecified Site 01/23/2011 ABHISHEK TADEO APRN R 787.91 Diarrhea 01/23/2011 ABHISHEK TADEO APRN R 789.00 Abdominal Pain Unspecified Site 01/23/2011 SARAH KIM MD 787.91 Diarrhea 01/23/2011 SARAH KIM MD 789.00 Abdominal Pain Unspecified Site 01/23/2011 SARAH KIM MD 787.91 Diarrhea 01/23/2011 SARAH KIM MD 789.00 Abdominal Pain Unspecified Site 01/23/2011 SARAH KIM MD 787.91 Diarrhea 01/23/2011 SARAH KIM MD 789.00 Abdominal Pain Unspecified Site 01/23/2011 SARAH KIM MD 787.91 Diarrhea 01/23/2011 SARAH KIM MD 789.00 Abdominal Pain Unspecified Site 01/23/2011 SARAH KIM MD 787.91 Diarrhea 01/23/2011 SARAH KIM MD 789.00 Abdominal Pain Unspecified Site 01/23/2011 HUERTER MD, YAMILETH 787.9 1 Diarrhea 01/23/2011 YAMILETH LAURENT MD 789.0 0 Abdominal Pain Unspecified Site 01/23/2011 YAMILETH LAURENT MD.9 1 Diarrhea 01/23/2011 YAMILETH LAURENT MD9.0 0 Abdominal Pain Unspecified Site 01/23/2011 LOPEZ DO, [...] Abdominal Pain Unspecified Site 01/23/2011 YAMILETH LAURENT MD.9 1 Diarrhea 01/23/2011 YAMILETH LAURENT MD9.0 0 Abdominal Pain Unspecified Site 01/23/2011 YAMILETH LAURENT MD.9 1 Diarrhea 01/23/2011 YAMILETH LAURENT MD9.0 0 Abdominal Pain Unspecified Site 01/23/2011 LOPEZ DO, JESSE K 787.91 Diarrhea 01/23/2011 LOPEZ DO, JESSE K 789.00 Abdominal Pain Unspecified Site 01/23/2011 YAMILETH LAURENT MD7.9 1 Diarrhea 01/23/2011 YAMILETH LAURENT MD9.0 0 Abdominal Pain Unspecified Site 01/23/2011 ZENA UMANZOR APRN T 787.91 Diarrhea 01/23/2011 ZENA UMANZOR APRN T 789.00 Abdominal Pain Unspecified Site 01/23/2011 ZENA UMANZOR APRN T 787.91 Diarrhea 01/23/2011 ZENA UMANZOR APRN 789.00 Abdominal Pain Unspecified Site 01/23/2011 ZENA UMANZOR APRN T 787.91 Diarrhea 01/23/2011 ZENA UMANZOR APRN 789.00 Abdominal Pain Unspecified Site 01/23/2011 ZENA UMANZOR APRN 787.91 Diarrhea 01/23/2011 ZENA UMANZOR APRN 789.00 Abdominal Pain Unspecified Site 01/23/2011 LOPEZ DO, JESSE K 787.91 Diarrhea 01/23/2011 LOPEZ DO, JESSE K 789.00 Abdominal Pain Unspecified Site 01/23/2011 NOÉ STEM CUTTERZENA T 787.91 Diarrhea 01/23/2011 NOÉ STEM CUTTER, ZENA T 789.00 Abdominal Pain Unspecified Site 01/23/2011 NOÉ STEM CUTTERZENA T 787.91 Diarrhea 01/23/2011 NOÉ STEM CUTTERZENA T 789.00 Abdominal Pain Unspecified Site 01/23/2011 NOÉ STEM CUTTERZENA T 787.91 Diarrhea 01/23/2011 NOÉ STEM CUTTERZENA T 789.00 Abdominal Pain Unspecified Site 01/23/2011 NOÉ WHITENZENA T 787.91 Diarrhea 01/23/2011 NOÉ WHITENZENA T 789.00 Abdominal Pain Unspecified Site 01/23/2011 ZENA UMAZNOR APRN T 787.91 Diarrhea 01/23/2011 ZENA UMANZOR APRN T 789.00 Abdominal Pain Unspecified Site 01/23/2011 LOPEZ DO, JESSE K 787.91 Diarrhea 01/23/2011 LOPEZ DO, JESSE K 789.00 Abdominal Pain Unspecified Site 01/23/2011 LOPEZ DO, JESSE K 787.91 Diarrhea 01/23/2011 LOPEZ DO, JESSE K 789.00 Abdominal Pain Unspecified Site 01/23/2011 ZENA UMANZOR APRN T 787.91 Diarrhea 01/23/2011 ZENA UMANZOR APRN T 789.00 Abdominal Pain Unspecified Site 01/23/2011 ZENA UMANZOR APRN T 787.91 Diarrhea 01/23/2011 ZENA UMANZOR APRN T 789.00 Abdominal Pain Unspecified Site 01/23/2011 YAMILETH LAURENT MD 787.9 1 Diarrhea 01/23/2011 YAMILETH LAURENT MD 789.0 0 Abdominal Pain Unspecified Site 01/23/2011 ZENA UMANZOR APRN T 787.91 Diarrhea 01/23/2011 NOÉ WHITENZENA T 789.00 Abdominal Pain Unspecified Site 01/23/2011 ZENA UMANZOR APRN T 787.91 Diarrhea 01/23/2011 ZENA UMANZOR APRN T 789.00 Abdominal Pain Unspecified Site 01/23/2011 ZENA UMANZOR APRN T 787.91 Diarrhea 01/23/2011 NOÉ STEM CUTTER, ZENA T 789.00 Abdominal Pain Unspecified Site 01/23/2011 NOÉ STEM CUTTER, ZENA T 787.91 Diarrhea 01/23/2011 NOÉ STEM CUTTER, ZENA T 789.00 Abdominal Pain Unspecified Site 01/23/2011 NOÉ STEM CUTTER, ZENA T 787.91 Diarrhea 01/23/2011 NOÉ STEM CUTTER, ZENA T 789.00 Abdominal Pain Unspecified Site 01/23/2011 NOÉ STEM CUTTERZENA T 787.91 Diarrhea 01/23/2011 NOÉ STEM CUTTER, ZENA T 789.00 Abdominal Pain Unspecified Site 01/23/2011 LOPEZ DO, JESSE K 787.91 Diarrhea 01/23/2011 LOPEZ DO, JESSE K 789.00 Abdominal Pain Unspecified Site 01/23/2011 NOÉ STEM CUTTERZENA T 787.91 Diarrhea 01/23/2011 NOÉ STEM CUTTERZENA T 789.00 Abdominal Pain Unspecified Site 01/23/2011 NOÉ STEM CUTTERZENA T 787.91 Diarrhea 01/23/2011 NOÉ STEM CUTTERZENA T 789.00 Abdominal Pain Unspecified Site 01/23/2011 LOPEZ DO, JESSE K 787.91 Diarrhea 01/23/2011 LOPEZ DO, JESSE K 789.00 Abdominal Pain Unspecified Site 01/23/2011 LOPEZ DO, JESSE K 787.91 Diarrhea 01/23/2011 LOPEZ DO, JESSE K 789.00 Abdominal Pain Unspecified Site 01/23/2011 ZENA UMANZOR APRN T 787.91 Diarrhea 01/23/2011 ZENA UMANZOR APRN T 789.00 Abdominal Pain Unspecified Site 01/23/2011 KENDALL OTTO MD 787. 91 Diarrhea 01/23/2011 KENDALL OTTO MD 789. 00 Abdominal Pain Unspecified Site 04/02/2011 KENDALL OTTO MD 780. 50 SLEEP DISTURBANCE, UNSPECIFIED 04/02/2011 KENDALL OTTO MD 782. 0 Sensory Disturbance Skin 04/02/2011 LOPEZ DO, JESSE K 780.50 SLEEP DISTURBANCE, UNSPECIFIED 04/02/2011 LOPEZ DO, JESSE K 782.0 Sensory Disturbance Skin 04/02/2011 780.50 SLE EP DISTURBANCE, UNSPECIFIED 04/02/2011 782.0 Sens ory Disturbance Skin 04/02/2011 780.50 SLE EP DISTURBANCE, UNSPECIFIED 04/02/2011 782.0 Sens ory Disturbance Skin 04/02/2011 780.50 SLE EP DISTURBANCE, UNSPECIFIED 04/02/2011 782.0 Sens ory Disturbance Skin 04/02/2011 780.50 SLE EP DISTURBANCE, UNSPECIFIED 04/02/2011 782.0 Sens ory Disturbance Skin 04/02/2011 780.50 SLE EP DISTURBANCE, UNSPECIFIED 04/02/2011 782.0 Sens ory Disturbance Skin 04/02/2011 780.50 SLE EP DISTURBANCE, UNSPECIFIED 04/02/2011 782.0 Sens ory Disturbance Skin 04/02/2011 780.50 SLE EP DISTURBANCE, UNSPECIFIED 04/02/2011 782.0 Sens ory Disturbance Skin 04/02/2011 780.50 SLE EP DISTURBANCE, UNSPECIFIED 04/02/2011 782.0 Sens ory Disturbance Skin 04/02/2011 780.50 SLE EP DISTURBANCE, UNSPECIFIED 04/02/2011 782.0 Sens ory Disturbance Skin 04/02/2011 780.50 SLE EP DISTURBANCE, UNSPECIFIED 04/02/2011 782.0 Sens ory Disturbance Skin 04/02/2011 780.50 SLE EP DISTURBANCE, UNSPECIFIED 04/02/2011 782.0 Sens ory Disturbance Skin 04/02/2011 780.50 SLE EP DISTURBANCE, UNSPECIFIED 04/02/2011 782.0 Sens ory Disturbance Skin 04/02/2011 780.50 SLE EP DISTURBANCE, UNSPECIFIED 04/02/2011 782.0 Sens ory Disturbance Skin 04/02/2011 780.50 SLE EP DISTURBANCE, UNSPECIFIED 04/02/2011 782.0 Sens ory Disturbance Skin 04/02/2011 780.50 SLE EP DISTURBANCE, UNSPECIFIED 04/02/2011 782.0 Sens ory Disturbance Skin 04/02/2011 780.50 SLE EP DISTURBANCE, UNSPECIFIED 04/02/2011 782.0 Sens ory Disturbance Skin 04/02/2011 780.50 SLE EP DISTURBANCE, UNSPECIFIED 04/02/2011 782.0 Sens ory Disturbance Skin 04/02/2011 780.50 SLE EP DISTURBANCE, UNSPECIFIED 04/02/2011 782.0 Sens ory Disturbance Skin 04/02/2011 780.50 SLE EP DISTURBANCE, UNSPECIFIED 04/02/2011 782.0 Sens ory Disturbance Skin 04/02/2011 780.50 SLE EP DISTURBANCE, UNSPECIFIED 04/02/2011 782.0 Sens ory Disturbance Skin 04/02/2011 780.50 SLE EP DISTURBANCE, UNSPECIFIED 04/02/2011 782.0 Sens ory Disturbance Skin 04/02/2011 780.50 SLE EP DISTURBANCE, UNSPECIFIED 04/02/2011 782.0 Sens ory Disturbance Skin 04/02/2011 LOPEZ DO, JESSE K 780.50 SLEEP DISTURBANCE, UNSPECIFIED 04/02/2011 LOPEZ DO, JESSE K 782.0 Sensory Disturbance Skin 04/02/2011 CARLYLE NETTLES, ABHISHEK R 780.50 SLEEP DISTURBANCE, UNSPECIFIED 04/02/2011 LEA TADEO APRNRICIA R 782.0 Sensory Disturbance Skin 04/02/2011 JUDY DAVIS, SARAH Law 780.50 SLEEP DISTURBANCE, UNSPECIFIED 04/02/2011 SARAH KIM [...] Sensory Disturbance Skin 04/02/2011 YAMILETH LAURENT MD 780.5 0 SLEEP DISTURBANCE, UNSPECIFIED 04/02/2011 YAMILETH LAURENT MD 782.0 Sensory Disturbance Skin 04/02/2011 YAMILETH LAURENT MD 780.5 0 SLEEP DISTURBANCE, UNSPECIFIED 04/02/2011 YAMILETH LAURENT MD [...] Sensory Disturbance Skin 04/02/2011 YAMILETH LAURENT MD 780.5 0 SLEEP DISTURBANCE, UNSPECIFIED 04/02/2011 YAMILETH LAURENT MD 782.0 Sensory Disturbance Skin 04/02/2011 YAMILETH LAURENT MD 780.5 0 SLEEP DISTURBANCE, UNSPECIFIED 04/02/2011 YAMILETH LAURENT MD 782.0 Sensory Disturbance Skin 04/02/2011 LOPEZ DO, JESSE K 780.50 SLEEP DISTURBANCE, UNSPECIFIED 04/02/2011 LOPEZ DO, JESSE K 782.0 Sensory Disturbance Skin 04/02/2011 YAMILETH LAURENT MD 780.5 0 SLEEP DISTURBANCE, UNSPECIFIED 04/02/2011 YAMILETH LAURENT MD 782.0 Sensory Disturbance Skin 04/02/2011 ZENA UMANZOR APRN 780.50 SLEEP DISTURBANCE, UNSPECIFIED 04/02/2011 ZENA UMANZOR APRN T 78 2.0 Sensory Disturbance Skin 04/02/2011 ZENA UMANZOR APRN T 780.50 SLEEP DISTURBANCE, UNSPECIFIED 04/02/2011 ZENA UMANZOR APRN T 78 2.0 Sensory Disturbance Skin 04/02/2011 ZENA UMANZOR APRN T 780.50 SLEEP DISTURBANCE, UNSPECIFIED 04/02/2011 ZENA UMANZOR APRN T 78 2.0 Sensory Disturbance Skin 04/02/2011 ZENA UMNAZOR APRN T 780.50 SLEEP DISTURBANCE, UNSPECIFIED 04/02/2011 ZENA UMANZOR APRN T 78 2.0 Sensory Disturbance Skin 04/02/2011 LOPEZ DO, JESSE K 780.50 SLEEP DISTURBANCE, UNSPECIFIED 04/02/2011 LOPEZ DO, JESSE K 782.0 Sensory Disturbance Skin 04/02/2011 ZENA UMANZOR APRN T 780.50 SLEEP DISTURBANCE, UNSPECIFIED 04/02/2011 ZENA UMANZOR APRN T 78 2.0 Sensory Disturbance Skin 04/02/2011 ZENA UMANZOR APRN T 780.50 SLEEP DISTURBANCE, UNSPECIFIED 04/02/2011 ZENA UMANZOR APRN T 78 2.0 Sensory Disturbance Skin 04/02/2011 ZENA UMANZOR APRN T 780.50 SLEEP DISTURBANCE, UNSPECIFIED 04/02/2011 ZENA UMANZOR APRN T 78 2.0 Sensory Disturbance Skin 04/02/2011 ZENA UMANZOR APRN T 780.50 SLEEP DISTURBANCE, UNSPECIFIED 04/02/2011 ZENA UMANZOR APRN T 78 2.0 Sensory Disturbance Skin 04/02/2011 ZENA UMANZOR APRN T 780.50 SLEEP DISTURBANCE, UNSPECIFIED 04/02/2011 ZENA UMANZOR APRN T 78 2.0 Sensory Disturbance Skin 04/02/2011 LOPEZ DO, JESSE K 780.50 SLEEP DISTURBANCE, UNSPECIFIED 04/02/2011 LOPEZ DO, JESSE K 782.0 Sensory Disturbance Skin 04/02/2011 LOPEZ DO, JESSE K 780.50 SLEEP DISTURBANCE, UNSPECIFIED 04/02/2011 LOPEZ DO, JESSE K 782.0 Sensory Disturbance Skin 04/02/2011 ZENA UMANZOR APRN T 780.50 SLEEP DISTURBANCE, UNSPECIFIED 04/02/2011 ZENA UMANZOR APRN T 78 2.0 Sensory Disturbance Skin 04/02/2011 ZENA UMANZOR APRN T 780.50 SLEEP DISTURBANCE, UNSPECIFIED 04/02/2011 ZENA UMANZOR APRN T 78 2.0 Sensory Disturbance Skin 04/02/2011 YAMILETH LAURENT MD 780.5 0 SLEEP DISTURBANCE, UNSPECIFIED 04/02/2011 YAMILETH LAURENT MD 782.0 Sensory Disturbance Skin 04/02/2011 ZENA UMANZOR APRN T 780.50 SLEEP DISTURBANCE, UNSPECIFIED 04/02/2011 ZENA UMANZOR APRN T 78 2.0 Sensory Disturbance Skin 04/02/2011 ZENA UMANZOR APRN T 780.50 SLEEP DISTURBANCE, UNSPECIFIED 04/02/2011 ZENA UMANZOR APRN T 78 2.0 Sensory Disturbance Skin 04/02/2011 ZENA UMANZOR APRN T 780.50 SLEEP DISTURBANCE, UNSPECIFIED 04/02/2011 ZENA UMANZOR APRN T 78 2.0 Sensory Disturbance Skin 04/02/2011 ZENA UMANZOR APRN T 780.50 SLEEP DISTURBANCE, UNSPECIFIED 04/02/2011 ZENA UMANZOR APRN T 78 2.0 Sensory Disturbance Skin 04/02/2011 ZENA UMANZOR APRN T 780.50 SLEEP DISTURBANCE, UNSPECIFIED 04/02/2011 ZENA UMANZOR APRN T 78 2.0 Sensory Disturbance Skin 04/02/2011 ZENA UMANZOR APRN T 780.50 SLEEP DISTURBANCE, UNSPECIFIED 04/02/2011 ZENA UMANZOR APRN T 78 2.0 Sensory Disturbance Skin 04/02/2011 LOPEZ DO, JESSE K 780.50 SLEEP DISTURBANCE, UNSPECIFIED 04/02/2011 LOPEZ DO, JESSE K 782.0 Sensory Disturbance Skin 04/02/2011 ZENA UMANZOR APRN 780.50 SLEEP DISTURBANCE, UNSPECIFIED 04/02/2011 ZENA UMANZOR APRN T 78 2.0 Sensory Disturbance Skin 04/02/2011 ZENA UMANZOR APRN 780.50 SLEEP DISTURBANCE, UNSPECIFIED 04/02/2011 ZENA UMANZOR APRN 78 2.0 Sensory Disturbance Skin 04/02/2011 LOPEZ DO, JESSE K 780.50 SLEEP DISTURBANCE, UNSPECIFIED 04/02/2011 LOPEZ DO, JESSE K 782.0 Sensory Disturbance Skin 04/02/2011 LOPEZ DO, JESSE K 780.50 SLEEP DISTURBANCE, UNSPECIFIED 04/02/2011 LOPEZ DO, JESSE K 782.0 Sensory Disturbance Skin 04/02/2011 ZENA UMANZOR APRN 780.50 SLEEP DISTURBANCE, UNSPECIFIED 04/02/2011 ZENA UMANZOR APRN 78 2.0 Sensory Disturbance Skin 04/02/2011 KENDALL OTTO MD 780. 50 SLEEP DISTURBANCE, UNSPECIFIED 04/02/2011 KENDALL OTTO MD 782. 0 Sensory Disturbance Skin 05/16/2011 Ot 466.0 ACUT E BRONCHITIS 05/16/2011 Ot 786.2 COUGH 05/16/2011 Ot V45.89 POS TSURGICAL STATES NEC 05/18/2011 Ot 008.8 TIERNEY L ENTERITIS NOS 05/18/2011 Ot 276.8 HYPO POTASSEMIA 05/18/2011 Ot 787.01 JACQUELINE SEA WITH VOMITING 05/24/2011 KENDALL OTTO MD 558. 9 Gastroenteritis Noninfectious 05/24/2011 JESSE LOPEZ DO 558.9 Gastroenteritis Noninfectious 05/24/2011 558.9 Saroj roenteritis Noninfectious 05/24/2011 558.9 Saroj roenteritis Noninfectious 05/24/2011 558.9 Saroj roenteritis Noninfectious 05/24/2011 558.9 Saroj roenteritis Noninfectious 05/24/2011 558.9 Saroj roenteritis Noninfectious 05/24/2011 558.9 Saroj roenteritis Noninfectious 05/24/2011 558.9 Saroj roenteritis Noninfectious 05/24/2011 558.9 Saroj roenteritis Noninfectious 05/24/2011 558.9 Saroj roenteritis Noninfectious 05/24/2011 558.9 Saroj roenteritis Noninfectious 05/24/2011 558.9 Saroj roenteritis Noninfectious 05/24/2011 558.9 Saroj roenteritis Noninfectious 05/24/2011 558.9 Saroj roenteritis Noninfectious 05/24/2011 558.9 Saroj roenteritis Noninfectious 05/24/2011 558.9 Saroj roenteritis Noninfectious 05/24/2011 558.9 Saroj roenteritis Noninfectious 05/24/2011 558.9 Saroj roenteritis Noninfectious 05/24/2011 558.9 Saroj roenteritis Noninfectious 05/24/2011 558.9 Saroj roenteritis Noninfectious 05/24/2011 558.9 Saroj roenteritis Noninfectious 05/24/2011 558.9 Saroj roenteritis Noninfectious 05/24/2011 558.9 Saroj roenteritis Noninfectious 05/24/2011 JESSE LOPEZ DO 558.9 Gastroenteritis Noninfectious 05/24/2011 ABHISHEK TADEO APRN 558.9 Gastroenteritis Noninfectious 05/24/2011 JUDY DAVIS, SARAH Law 558.9 Gastroenteritis Noninfectious 05/24/2011 JUDY DAVIS, SARAH Law 558.9 Gastroenteritis Noninfectious 05/24/2011 SARAH KIM MD 558.9 Gastroenteritis Noninfectious 05/24/2011 SARAH KIM MD 558.9 Gastroenteritis Noninfectious 05/24/2011 SARAH KIM MD 558.9 Gastroenteritis Noninfectious 05/24/2011 YAMILETH LAURENT MD 558.9 Gastroenteritis Noninfectious 05/24/2011 YAMILETH LAURENT MD 558.9 Gastroenteritis Noninfectious 05/24/2011 JESSE LOPEZ DO 558.9 Gastroenteritis Noninfectious 05/24/2011 JESSE LOPEZ DO 558.9 Gastroenteritis Noninfectious 05/24/2011 JESSE LOPEZ DO 558.9 Gastroenteritis Noninfectious 05/24/2011 JESSE LOPEZ DO 558.9 Gastroenteritis Noninfectious 05/24/2011 YAMILETH LAURENT MD 558.9 Gastroenteritis Noninfectious 05/24/2011 YAMILETH LAURENT MD 558.9 Gastroenteritis Noninfectious 05/24/2011 LOPEZ DO, JESSE K 558.9 Gastroenteritis Noninfectious 05/24/2011 YAMILETH LAURENT MD 558.9 Gastroenteritis Noninfectious 05/24/2011 ZENA UMANZOR APRN T 55 8.9 Gastroenteritis Noninfectious 05/24/2011 ZENA UMANZOR APRN T 55 8.9 Gastroenteritis Noninfectious 05/24/2011 ZENA UMANZOR APRN T 55 8.9 Gastroenteritis Noninfectious 05/24/2011 ZENA UMANZOR APRN T 55 8.9 Gastroenteritis Noninfectious 05/24/2011 LOPEZ DO, JESSE K 558.9 Gastroenteritis Noninfectious 05/24/2011 ZENA UMANZOR APRN T 55 8.9 Gastroenteritis Noninfectious 05/24/2011 ZENA UMANZOR APRN T 55 8.9 Gastroenteritis Noninfectious 05/24/2011 ZENA UMANZOR APRN T 55 8.9 Gastroenteritis Noninfectious 05/24/2011 ZENA UMANZOR APRN T 55 8.9 Gastroenteritis Noninfectious 05/24/2011 ZENA UMANZOR APRN T 55 8.9 Gastroenteritis Noninfectious 05/24/2011 LOPEZ DO, JESSE K 558.9 Gastroenteritis Noninfectious 05/24/2011 LOPEZ DO, JESSE K 558.9 Gastroenteritis Noninfectious 05/24/2011 ZENA UMANZOR APRN T 55 8.9 Gastroenteritis Noninfectious 05/24/2011 ZENA UMANZOR APRN T 55 8.9 Gastroenteritis Noninfectious 05/24/2011 YAMILETH LAURENT MD 558.9 Gastroenteritis Noninfectious 05/24/2011 ZENA UMANZOR APRN T 55 8.9 Gastroenteritis Noninfectious 05/24/2011 ZENA UMANZOR APRN T 55 8.9 Gastroenteritis Noninfectious 05/24/2011 ZENA UMANZOR APRN T 55 8.9 Gastroenteritis Noninfectious 05/24/2011 ZENA UMANZOR APRN T 55 8.9 Gastroenteritis Noninfectious 05/24/2011 ZENA UMANZOR APRN T 55 8.9 Gastroenteritis Noninfectious 05/24/2011 ZENA UMANZOR APRN T 55 8.9 Gastroenteritis Noninfectious 05/24/2011 LOPEZ DO, JESSE K 558.9 Gastroenteritis Noninfectious 05/24/2011 ZENA UMANZOR APRN T 55 8.9 Gastroenteritis Noninfectious 05/24/2011 ZENA UMANZOR APRN T 55 8.9 Gastroenteritis Noninfectious 05/24/2011 JOHN CASE JESSE K 558.9 Gastroenteritis Noninfectious 05/24/2011 LOPEZ JESSE CASE 558.9 Gastroenteritis Noninfectious 05/24/2011 ZENA UMANZOR APRN 55 8.9 Gastroenteritis Noninfectious 05/24/2011 KENDALL OTTO MD 558. 9 Gastroenteritis Noninfectious 05/24/2011 Ot 782.2 LOCA L SUPRFICIAL SWELLNG 05/24/2011 Ot V45.89 POS TSURGICAL STATES NEC 06/20/2011 KENDALL OTTO MD V04. 81 FLU DX (3 YRS AND ABOVE, IM) [...] AND ABOVE, IM) 06/20/2011 YAMILETH LAURENT MD V04.8 1 FLU DX (3 YRS AND ABOVE, IM) 06/20/2011 YAMILETH LAURENT MD V04.8 1 FLU DX (3 YRS AND ABOVE, IM) 06/20/2011 JOHN CASE JESSE K V04.81 FLU DX (3 YRS AND ABOVE, IM) 06/20/2011 JOHN CASE JESSE K V04.81 FLU DX (3 YRS AND ABOVE, IM) 06/20/2011 LOPEZ DO JESSE K V04.81 FLU DX (3 YRS AND ABOVE, IM) 06/20/2011 JOHN CASE JESSE K V04.81 FLU DX (3 YRS AND ABOVE, IM) 06/20/2011 YAMILETH LAURENT MD V04.8 1 FLU DX (3 YRS AND ABOVE, IM) 06/20/2011 YAMILETH LAURENT MD V04.8 1 FLU DX (3 YRS AND ABOVE, IM) 06/20/2011 CLEO LOPEZ DOA K V04.81 FLU DX (3 YRS AND ABOVE, IM) 06/20/2011 YAMILETH LAURENT MD V04.8 1 FLU DX (3 YRS AND ABOVE, IM) 06/20/2011 NOÉ NETTLES, ZENA T V04.81 FLU DX (3 YRS AND ABOVE, IM) 06/20/2011 NOÉ STEM CUTTER, ZENA T V04.81 FLU DX (3 YRS AND ABOVE, IM) 06/20/2011 NOÉ NETTLES, ZENA T V04.81 FLU DX (3 YRS AND ABOVE, IM) 06/20/2011 NOÉ WHITEN, ZENA T V04.81 FLU DX (3 YRS AND ABOVE, IM) 06/20/2011 JOHN DO JESSE K V04.81 FLU DX (3 YRS AND ABOVE, IM) 06/20/2011 NOÉ WHITEN, ZENA T V04.81 FLU DX (3 YRS AND ABOVE, IM) 06/20/2011 NOÉ WHITEN, ZENA T V04.81 FLU DX (3 YRS AND ABOVE, IM) 06/20/2011 NOÉ NETTLES ZENA T V04.81 FLU DX (3 YRS AND ABOVE, IM) 06/20/2011 NOÉ NETTLES, ZENA T V04.81 FLU DX (3 YRS AND ABOVE, IM) 06/20/2011 NOÉ NETTLES, ZENA T V04.81 FLU DX (3 YRS AND ABOVE, IM) 06/20/2011 LOPEZ DO JESSE K V04.81 FLU DX (3 YRS AND ABOVE, IM) 06/20/2011 LOPEZ DO, JESSE K V04.81 FLU DX (3 YRS AND ABOVE, IM) 06/20/2011 NOÉ NETTLES ZENA T V04.81 FLU DX (3 YRS AND ABOVE, IM) 06/20/2011 NOÉ NETTLES ZENA T V04.81 FLU DX (3 YRS AND ABOVE, IM) 06/20/2011 YAMILETH LAURENT MD V04.8 1 FLU DX (3 YRS AND ABOVE, IM) 06/20/2011 NOÉ NETTLES, ZENA T V04.81 FLU DX (3 YRS AND ABOVE, IM) 06/20/2011 NOÉ NETTLES, ZENA T V04.81 FLU DX (3 YRS [...] AND ABOVE, IM) 06/20/2011 KENDALL OTTO MD V04. 81 FLU DX (3 YRS AND ABOVE, IM) 10/14/2011 Ot V45.4 ARTH RODESIS STATUS 10/14/2011 Ot V57.1 PHYS ICAL THERAPY NEC 02/06/2012 Ot 459.81 MARIA FERNANDA OUS INSUFFICIENCY NOS 02/06/2012 Ot 682.6 CELL ULITIS OF LEG 02/06/2012 Ot 729.81 SWE LLING OF LIMB 02/12/2012 KENDALL OTTO MD 719. 45 HIP PAIN 02/12/2012 JESSE LOPEZ DO 719.45 [...] PAIN 02/12/2012 719.45 HIP PAIN 02/12/2012 LOPEZ DO JESSE K 719.45 HIP PAIN 02/12/2012 ABHISHEK TADEO APRN 719.45 HIP PAIN 02/12/2012 SARAH KIM MD 719.45 HIP PAIN 02/12/2012 SARAH KIM MD 719.45 HIP PAIN 02/12/2012 SARAH KIM MD 719.45 HIP PAIN 02/12/2012 SARAH KIM MD 719.45 HIP PAIN 02/12/2012 SARAH KIM MD 719.45 HIP PAIN 02/12/2012 YAMILETH LAURENT MD 719.4 5 HIP PAIN 02/12/2012 YAMILETH LAURENT MD.4 5 HIP PAIN 02/12/2012 LOPEZ DO JESSE K 719.45 HIP PAIN 02/12/2012 LOPEZ DO JESSE K 719.45 HIP PAIN 02/12/2012 LOPEZ DO JESSE K 719.45 HIP PAIN 02/12/2012 LOPEZ DO JESSE K 719.45 HIP PAIN 02/12/2012 YAMILETH LAURENT MD 719.4 5 HIP PAIN 02/12/2012 YAMILETH LAURENT MD 71Sabas.4 5 HIP PAIN 02/12/2012 LOPEZ DO JESSE K 719.45 HIP PAIN 02/12/2012 YAMILETH LAURENT MD.4 5 HIP PAIN 02/12/2012 ZENA UMANZOR APRN 719.45 HIP PAIN 02/12/2012 ZENA UMANZOR APRN 719.45 HIP PAIN 02/12/2012 ZENA UMANZOR APRN 719.45 HIP PAIN 02/12/2012 ZENA UMANZOR APRN 719.45 HIP PAIN 02/12/2012 JESSE LOPEZ DO K 719.45 HIP PAIN 02/12/2012 ZENA UMANZOR [...] ZENA UMANZOR APRN 719.45 HIP PAIN 02/12/2012 YAMILETH LAURENT MD 719.4 5 HIP PAIN 02/12/2012 ZENA UMANZOR APRN 719.45 [...] 719.45 HIP PAIN 02/12/2012 KENDALL OTTO MD 719. 45 HIP PAIN 02/28/2012 KENDALL OTTO MD 457. 1 OTHER LYMPHEDEMA 02/28/2012 LOPEZ DO, JESSE K 457.1 OTHER LYMPHEDEMA 02/28/2012 457.1 OTHE R LYMPHEDEMA 02/28/2012 457.1 OTHE R LYMPHEDEMA 02/28/2012 457.1 OTHE R LYMPHEDEMA 02/28/2012 457.1 OTHE R LYMPHEDEMA 02/28/2012 457.1 OTHE R LYMPHEDEMA 02/28/2012 457.1 OTHE R LYMPHEDEMA 02/28/2012 457.1 OTHE R LYMPHEDEMA 02/28/2012 457.1 OTHE R LYMPHEDEMA 02/28/2012 457.1 OTHE R LYMPHEDEMA 02/28/2012 457.1 OTHE R LYMPHEDEMA 02/28/2012 457.1 OTHE R LYMPHEDEMA 02/28/2012 457.1 OTHE R LYMPHEDEMA 02/28/2012 457.1 OTHE R LYMPHEDEMA 02/28/2012 457.1 OTHE R LYMPHEDEMA 02/28/2012 457.1 OTHE R LYMPHEDEMA 02/28/2012 457.1 OTHE R LYMPHEDEMA 02/28/2012 457.1 OTHE R LYMPHEDEMA 02/28/2012 457.1 OTHE R LYMPHEDEMA 02/28/2012 457.1 OTHE R LYMPHEDEMA 02/28/2012 457.1 OTHE R LYMPHEDEMA 02/28/2012 457.1 OTHE R LYMPHEDEMA 02/28/2012 457.1 OTHE R LYMPHEDEMA 02/28/2012 JOHN CASE JESSE K 457.1 OTHER LYMPHEDEMA 02/28/2012 ABHISHEK TADEO APRN 457.1 OTHER LYMPHEDEMA 02/28/2012 SARAH KIM MD 457.1 OTHER LYMPHEDEMA 02/28/2012 SARAH KIM MD 457.1 OTHER LYMPHEDEMA 02/28/2012 SARAH KIM MD 457.1 OTHER LYMPHEDEMA 02/28/2012 SARAH KIM MD 457.1 OTHER LYMPHEDEMA 02/28/2012 SARAH KIM MD 457.1 OTHER LYMPHEDEMA 02/28/2012 YAMILETH LAURENT MD 457.1 OTHER LYMPHEDEMA 02/28/2012 YAMILETH LAURENT MD 457.1 OTHER LYMPHEDEMA 02/28/2012 JOHN CASE JESSE K 457.1 OTHER LYMPHEDEMA 02/28/2012 JOHN CASE JESSE K 457.1 OTHER LYMPHEDEMA 02/28/2012 LOPEZ DO JESSE K 457.1 OTHER LYMPHEDEMA 02/28/2012 JOHN CASE JESSE K 457.1 OTHER LYMPHEDEMA 02/28/2012 YAMILETH LAURENT MD 457.1 OTHER LYMPHEDEMA 02/28/2012 YAMILETH LAURENT MD 457.1 OTHER LYMPHEDEMA 02/28/2012 JOHN CASE JESSE K 457.1 OTHER LYMPHEDEMA 02/28/2012 YAMILETH LAURENT MD 457.1 OTHER LYMPHEDEMA 02/28/2012 ZENA UMANZOR APRN 45 7.1 OTHER LYMPHEDEMA 02/28/2012 ZENA UMANZOR APRN T 45 7.1 OTHER LYMPHEDEMA 02/28/2012 ZENA UMANZOR APRN T 45 7.1 OTHER LYMPHEDEMA 02/28/2012 ZENA UMANZOR APRN T 45 7.1 OTHER LYMPHEDEMA 02/28/2012 LOPEZ DO JESSE K 457.1 OTHER LYMPHEDEMA 02/28/2012 ZENA UMANZOR APRN T 45 7.1 OTHER LYMPHEDEMA 02/28/2012 ZENA UMANZOR APRN T 45 7.1 OTHER LYMPHEDEMA 02/28/2012 ZENA UMANZOR APRN T 45 7.1 OTHER LYMPHEDEMA 02/28/2012 ZENA UMANZOR APRN T 45 7.1 OTHER LYMPHEDEMA 02/28/2012 ZENA UMANZOR APRN T 45 7.1 OTHER LYMPHEDEMA 02/28/2012 LOPEZ DO JESSE K 457.1 OTHER LYMPHEDEMA 02/28/2012 LOPEZ DO JESSE K 457.1 OTHER LYMPHEDEMA 02/28/2012 ZENA UMANZOR APRN T 45 7.1 OTHER LYMPHEDEMA 02/28/2012 ZENA UMANZOR APRN T 45 7.1 OTHER LYMPHEDEMA 02/28/2012 ANASTASIIA DAVIS, YAMILETH 457.1 OTHER LYMPHEDEMA 02/28/2012 ZENA UMANZOR APRN T 45 7.1 OTHER LYMPHEDEMA 02/28/2012 ZENA UMANZOR APRN T 45 7.1 OTHER LYMPHEDEMA 02/28/2012 ZENA UMANZOR APRN T 45 7.1 OTHER LYMPHEDEMA 02/28/2012 ZENA UMANZOR APRN T 45 7.1 OTHER LYMPHEDEMA 02/28/2012 ZENA UMANZOR APRN T 45 7.1 OTHER LYMPHEDEMA 02/28/2012 ZENA UMANZOR APRN T 45 7.1 OTHER LYMPHEDEMA 02/28/2012 LOPEZ DO JESSE K 457.1 OTHER LYMPHEDEMA 02/28/2012 ZENA UMANZOR APRN T 45 7.1 OTHER LYMPHEDEMA 02/28/2012 ZENA UMANZOR APRN T 45 7.1 OTHER LYMPHEDEMA 02/28/2012 LOPEZ DO, JESSE K 457.1 OTHER LYMPHEDEMA 02/28/2012 LOPEZ DO, JESSE K 457.1 OTHER LYMPHEDEMA 02/28/2012 ZENA UMANZOR APRN T 45 7.1 OTHER LYMPHEDEMA 02/28/2012 FAM DAVIS, KENDALL 457. 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 1 ESSENTIAL HYPERTRIGLYCERIDEMIA 03/17/2012 KENDALL OTTO MD 278. 01 OBESITY MORBID 03/17/2012 KENDALL OTTO MD 571. 8 FATTY LIVER 03/17/2012 KENDALL OTTO MD 785. 6 MEDIASTINAL MASSES LYMPHADENOPATHY 03/17/2012 KENDALL OTTO MD 799. 02 HYPOXIA 03/17/2012 JESSE LOPEZ DO 272.1 ESSENTIAL HYPERTRIGLYCERIDEMIA 03/17/2012 JESSE LOPEZ DO K 278.01 OBESITY MORBID 03/17/2012 JESSE LOPEZ DO 571.8 FATTY LIVER 03/17/2012 JESSE LOPEZ DO 785.6 MEDIASTINAL MASSES LYMPHADENOPATHY 03/17/2012 JESSE LOPEZ DO 799.02 HYPOXIA 03/17/2012 272.1 ESSE NTIAL HYPERTRIGLYCERIDEMIA 03/17/2012 278.01 OBE SITY MORBID 03/17/2012 571.8 FATT Y LIVER 03/17/2012 785.6 MEDI ASTINAL MASSES LYMPHADENOPATHY 03/17/2012 799.02 HYPOXIA 03/17/2012 272.1 ESSE NTIAL HYPERTRIGLYCERIDEMIA 03/17/2012 278.01 OBE SITY MORBID 03/17/2012 571.8 FATT Y LIVER 03/17/2012 785.6 MEDI ASTINAL MASSES LYMPHADENOPATHY 03/17/2012 799.02 HYPOXIA 03/17/2012 272.1 ESSE NTIAL HYPERTRIGLYCERIDEMIA 03/17/2012 278.01 OBE SITY MORBID 03/17/2012 571.8 FATT Y LIVER 03/17/2012 785.6 MEDI ASTINAL MASSES LYMPHADENOPATHY 03/17/2012 799.02 HYPOXIA 03/17/2012 272.1 ESSE NTIAL HYPERTRIGLYCERIDEMIA 03/17/2012 278.01 OBE SITY MORBID 03/17/2012 571.8 FATT Y LIVER 03/17/2012 785.6 MEDI ASTINAL MASSES LYMPHADENOPATHY 03/17/2012 799.02 HYPOXIA 03/17/2012 272.1 ESSE NTIAL HYPERTRIGLYCERIDEMIA 03/17/2012 278.01 OBE SITY MORBID 03/17/2012 571.8 FATT Y LIVER 03/17/2012 785.6 MEDI ASTINAL MASSES LYMPHADENOPATHY 03/17/2012 799.02 HYPOXIA 03/17/2012 272.1 ESSE NTIAL HYPERTRIGLYCERIDEMIA 03/17/2012 278.01 OBE SITY MORBID 03/17/2012 571.8 FATT Y LIVER 03/17/2012 785.6 MEDI ASTINAL MASSES LYMPHADENOPATHY 03/17/2012 799.02 HYPOXIA 03/17/2012 272.1 ESSE NTIAL HYPERTRIGLYCERIDEMIA 03/17/2012 278.01 OBE SITY MORBID 03/17/2012 571.8 FATT Y LIVER 03/17/2012 785.6 MEDI ASTINAL MASSES LYMPHADENOPATHY 03/17/2012 799.02 HYPOXIA 03/17/2012 272.1 ESSE NTIAL HYPERTRIGLYCERIDEMIA 03/17/2012 278.01 OBE SITY MORBID 03/17/2012 571.8 FATT Y LIVER 03/17/2012 785.6 MEDI ASTINAL MASSES LYMPHADENOPATHY 03/17/2012 799.02 HYPOXIA 03/17/2012 272.1 ESSE NTIAL HYPERTRIGLYCERIDEMIA 03/17/2012 278.01 OBE SITY MORBID 03/17/2012 571.8 FATT Y LIVER 03/17/2012 785.6 MEDI ASTINAL MASSES LYMPHADENOPATHY 03/17/2012 799.02 HYPOXIA 03/17/2012 272.1 ESSE NTIAL HYPERTRIGLYCERIDEMIA 03/17/2012 278.01 OBE SITY MORBID 03/17/2012 571.8 FATT Y LIVER 03/17/2012 785.6 MEDI ASTINAL MASSES LYMPHADENOPATHY 03/17/2012 799.02 HYPOXIA 03/17/2012 272.1 ESSE NTIAL HYPERTRIGLYCERIDEMIA 03/17/2012 278.01 OBE SITY MORBID 03/17/2012 571.8 FATT Y LIVER 03/17/2012 785.6 MEDI ASTINAL MASSES LYMPHADENOPATHY 03/17/2012 799.02 HYPOXIA 03/17/2012 272.1 ESSE NTIAL HYPERTRIGLYCERIDEMIA 03/17/2012 278.01 OBE SITY MORBID 03/17/2012 571.8 FATT Y LIVER 03/17/2012 785.6 MEDI ASTINAL MASSES LYMPHADENOPATHY 03/17/2012 799.02 HYPOXIA 03/17/2012 272.1 ESSE NTIAL HYPERTRIGLYCERIDEMIA 03/17/2012 278.01 OBE SITY MORBID 03/17/2012 571.8 FATT Y LIVER 03/17/2012 785.6 MEDI ASTINAL MASSES LYMPHADENOPATHY 03/17/2012 799.02 HYPOXIA 03/17/2012 272.1 ESSE NTIAL HYPERTRIGLYCERIDEMIA 03/17/2012 278.01 OBE SITY MORBID 03/17/2012 571.8 FATT Y LIVER 03/17/2012 785.6 MEDI ASTINAL MASSES LYMPHADENOPATHY 03/17/2012 799.02 HYPOXIA 03/17/2012 272.1 ESSE NTIAL HYPERTRIGLYCERIDEMIA 03/17/2012 278.01 OBE SITY MORBID 03/17/2012 571.8 FATT Y LIVER 03/17/2012 785.6 MEDI ASTINAL MASSES LYMPHADENOPATHY 03/17/2012 799.02 HYPOXIA 03/17/2012 272.1 ESSE NTIAL HYPERTRIGLYCERIDEMIA 03/17/2012 278.01 OBE SITY MORBID 03/17/2012 571.8 FATT Y LIVER 03/17/2012 785.6 MEDI ASTINAL MASSES LYMPHADENOPATHY 03/17/2012 799.02 HYPOXIA 03/17/2012 272.1 ESSE NTIAL HYPERTRIGLYCERIDEMIA 03/17/2012 278.01 OBE SITY MORBID 03/17/2012 571.8 FATT Y LIVER 03/17/2012 785.6 MEDI ASTINAL MASSES LYMPHADENOPATHY 03/17/2012 799.02 HYPOXIA 03/17/2012 272.1 ESSE NTIAL HYPERTRIGLYCERIDEMIA 03/17/2012 278.01 OBE SITY MORBID 03/17/2012 571.8 FATT Y LIVER 03/17/2012 785.6 MEDI ASTINAL MASSES LYMPHADENOPATHY 03/17/2012 799.02 HYPOXIA 03/17/2012 272.1 ESSE NTIAL HYPERTRIGLYCERIDEMIA 03/17/2012 278.01 OBE SITY MORBID 03/17/2012 571.8 FATT Y LIVER 03/17/2012 785.6 MEDI ASTINAL MASSES LYMPHADENOPATHY 03/17/2012 799.02 HYPOXIA 03/17/2012 272.1 ESSE NTIAL HYPERTRIGLYCERIDEMIA 03/17/2012 278.01 OBE SITY MORBID 03/17/2012 571.8 FATT Y LIVER 03/17/2012 785.6 MEDI ASTINAL MASSES LYMPHADENOPATHY 03/17/2012 799.02 HYPOXIA 03/17/2012 272.1 ESSE NTIAL HYPERTRIGLYCERIDEMIA 03/17/2012 278.01 OBE SITY MORBID 03/17/2012 571.8 FATT Y LIVER 03/17/2012 785.6 MEDI ASTINAL MASSES LYMPHADENOPATHY 03/17/2012 799.02 HYPOXIA 03/17/2012 272.1 ESSE NTIAL HYPERTRIGLYCERIDEMIA 03/17/2012 278.01 OBE SITY MORBID 03/17/2012 571.8 FATT Y LIVER 03/17/2012 785.6 MEDI ASTINAL MASSES LYMPHADENOPATHY 03/17/2012 799.02 HYPOXIA 03/17/2012 LOPEZ DO, JESSE K 272.1 ESSENTIAL HYPERTRIGLYCERIDEMIA 03/17/2012 LOPEZ DO, JESSE K 278.01 OBESITY MORBID 03/17/2012 LOPEZ DO, JESSE K 571.8 FATTY LIVER 03/17/2012 LOPEZ DO, JESSE K 785.6 MEDIASTINAL MASSES LYMPHADENOPATHY 03/17/2012 LOPEZ DO, JESSE K 799.02 HYPOXIA 03/17/2012 ABHISHEK TADEO APRN R 272.1 ESSENTIAL HYPERTRIGLYCERIDEMIA 03/17/2012 ABHISHEK TADEO APRN R 278.01 OBESITY MORBID 03/17/2012 ABHISHEK TADEO APRN R 571.8 FATTY LIVER 03/17/2012 ABHISHEK TADEO APRN R 785.6 MEDIASTINAL MASSES LYMPHADENOPATHY 03/17/2012 MARIO TADEO APRNIA R 799.02 HYPOXIA 03/17/2012 SARAH KIM MD 272.1 ESSENTIAL HYPERTRIGLYCERIDEMIA 03/17/2012 SARAH KIM MD 278.01 OBESITY MORBID 03/17/2012 SARAH KIM MD 571.8 FATTY LIVER 03/17/2012 SARAH KIM MD 785.6 MEDIASTINAL MASSES LYMPHADENOPATHY 03/17/2012 SARAH KIM MD M 799.02 HYPOXIA 03/17/2012 SARAH KIM MD 272.1 [...] MEDIASTINAL MASSES LYMPHADENOPATHY 03/17/2012 SARAH KIM MD M 799.02 HYPOXIA 03/17/2012 SARAH KIM MD 272.1 [...] MEDIASTINAL MASSES LYMPHADENOPATHY 03/17/2012 SARAH KIM MD M 799.02 HYPOXIA 03/17/2012 YAMILETH LAURENT MD 272.1 ESSENTIAL HYPERTRIGLYCERIDEMIA 03/17/2012 YAMILETH LAURENT MD 278.0 1 OBESITY MORBID 03/17/2012 YAMILETH LAURENT MD 571.8 FATTY LIVER 03/17/2012 YAMILETH LAURENT MD 785.6 MEDIASTINAL MASSES LYMPHADENOPATHY 03/17/2012 YAMILETH LAURENT MD 799.0 2 HYPOXIA 03/17/2012 YAMILETH LAURENT MD 272.1 ESSENTIAL HYPERTRIGLYCERIDEMIA 03/17/2012 YAMILETH LAURENT MD 278.0 1 OBESITY MORBID 03/17/2012 YAMILETH LAURENT MD 571.8 FATTY LIVER 03/17/2012 YAMILETH LAURENT MD 785.6 MEDIASTINAL MASSES LYMPHADENOPATHY 03/17/2012 YAMILETH LAURENT MD 799.0 2 HYPOXIA 03/17/2012 LOPEZ DO, JESSE K 272.1 [...] 272.1 ESSENTIAL HYPERTRIGLYCERIDEMIA 03/17/2012 YAMILETH LAURENT MD 278.0 1 OBESITY MORBID 03/17/2012 YAMILETH LAURENT MD 571.8 FATTY LIVER 03/17/2012 YAMILETH LAURENT MD 785.6 MEDIASTINAL MASSES LYMPHADENOPATHY 03/17/2012 YAMILETH LAURENT MD 799.0 2 HYPOXIA 03/17/2012 YAMILETH LAURENT MD 272.1 ESSENTIAL HYPERTRIGLYCERIDEMIA 03/17/2012 YAMILETH LAURENT MD 278.0 1 OBESITY MORBID 03/17/2012 YAMILETH LAURENT MD 571.8 FATTY LIVER 03/17/2012 YAMILETH LAURENT MD 785.6 MEDIASTINAL MASSES LYMPHADENOPATHY 03/17/2012 YAMILETH LAURENT MD 799.0 2 HYPOXIA 03/17/2012 LOPEZ DO JESSE K 272.1 ESSENTIAL HYPERTRIGLYCERIDEMIA 03/17/2012 LOPEZ DO, JESSE K 278.01 OBESITY MORBID 03/17/2012 LOPEZ DO JESSE K 571.8 FATTY LIVER 03/17/2012 LOPEZ , JESSE K 785.6 MEDIASTINAL MASSES LYMPHADENOPATHY 03/17/2012 LOPEZ DO JESSE K 799.02 HYPOXIA 03/17/2012 YAMILETH LAURENT MD 272.1 ESSENTIAL HYPERTRIGLYCERIDEMIA 03/17/2012 YAMILETH LAURENT MD 278.0 1 OBESITY MORBID 03/17/2012 YAMILETH LAURENT MD 571.8 FATTY LIVER 03/17/2012 YAMILETH LAURENT MD 785.6 MEDIASTINAL MASSES LYMPHADENOPATHY 03/17/2012 YAMILETH LAURENT MD 799.0 2 HYPOXIA 03/17/2012 ZENA UMANZOR APRN T 27 2.1 ESSENTIAL HYPERTRIGLYCERIDEMIA 03/17/2012 ZENA UMANZOR APRN T 278.01 OBESITY MORBID 03/17/2012 ZENA UMANZOR APRN T 57 1.8 FATTY LIVER 03/17/2012 ZENA UMANZOR APRN T 78 5.6 MEDIASTINAL MASSES LYMPHADENOPATHY 03/17/2012 ZENA UMANZOR APRN T 799.02 HYPOXIA 03/17/2012 ZENA UMANZOR APRN T 27 2.1 ESSENTIAL HYPERTRIGLYCERIDEMIA 03/17/2012 ZENA UMANZOR APRN T 278.01 OBESITY MORBID 03/17/2012 ZENA UMANZOR APRN T 57 1.8 FATTY LIVER 03/17/2012 ZENA UMANZOR APRN T 78 5.6 MEDIASTINAL MASSES LYMPHADENOPATHY 03/17/2012 ZENA UMANZOR APRN 799.02 HYPOXIA 03/17/2012 ZENA UMANZOR APRN T 27 2.1 ESSENTIAL HYPERTRIGLYCERIDEMIA 03/17/2012 ZENA UMANZOR APRN T 278.01 OBESITY MORBID 03/17/2012 ZENA UMANZOR APRN T 57 1.8 FATTY LIVER 03/17/2012 ZENA UMANZOR APRN T 78 5.6 MEDIASTINAL MASSES LYMPHADENOPATHY 03/17/2012 ZENA UMANZOR APRN T 799.02 HYPOXIA 03/17/2012 ZENA UMANZOR APRN T 27 2.1 ESSENTIAL HYPERTRIGLYCERIDEMIA 03/17/2012 ZENA UMANZOR APRN T 278.01 OBESITY MORBID 03/17/2012 ZENA UMANZOR APRN T 57 1.8 FATTY LIVER 03/17/2012 ZENA UMANZOR APRN T 78 5.6 MEDIASTINAL MASSES LYMPHADENOPATHY 03/17/2012 ZENA UMANZOR APRN T 799.02 HYPOXIA 03/17/2012 LOPEZ DO, JESSE K 272.1 ESSENTIAL HYPERTRIGLYCERIDEMIA 03/17/2012 LOPEZ DO, JESSE K 278.01 OBESITY MORBID 03/17/2012 LOPEZ DO, JESSE K 571.8 FATTY LIVER 03/17/2012 LOPEZ DO, JESSE K 785.6 MEDIASTINAL MASSES LYMPHADENOPATHY 03/17/2012 LOPEZ DO, JESSE K 799.02 HYPOXIA 03/17/2012 ZENA UMANZOR APRN 27 2.1 ESSENTIAL HYPERTRIGLYCERIDEMIA 03/17/2012 ZENA UMANZOR APRN T 278.01 OBESITY MORBID 03/17/2012 ZENA UMANZOR APRN T 57 1.8 FATTY LIVER 03/17/2012 ZENA UMANZOR APRN T 78 5.6 MEDIASTINAL MASSES LYMPHADENOPATHY 03/17/2012 ZENA UMANZOR APRN T 799.02 HYPOXIA 03/17/2012 ZENA UMANZOR APRN 27 2.1 ESSENTIAL HYPERTRIGLYCERIDEMIA 03/17/2012 ZENA UMANZOR APRN T 278.01 OBESITY MORBID 03/17/2012 ZENA UMANZOR APRN T 57 1.8 FATTY LIVER 03/17/2012 ZENA UMANZOR APRN T 78 5.6 MEDIASTINAL MASSES LYMPHADENOPATHY 03/17/2012 ZENA UMANZOR APRN 799.02 HYPOXIA 03/17/2012 ZENA UMANZOR APRN T 27 2.1 ESSENTIAL HYPERTRIGLYCERIDEMIA 03/17/2012 ZENA UMANZOR APRN T 278.01 OBESITY MORBID 03/17/2012 ZENA UMANZOR APRN T 57 1.8 FATTY LIVER 03/17/2012 ZENA UMANZOR APRN T 78 5.6 MEDIASTINAL MASSES LYMPHADENOPATHY 03/17/2012 ZENA UMANZOR APRN T 799.02 HYPOXIA 03/17/2012 ZENA UMANZOR APRN 27 2.1 ESSENTIAL HYPERTRIGLYCERIDEMIA 03/17/2012 ZENA UMANZOR APRN 278.01 OBESITY MORBID 03/17/2012 ZENA UMANZOR APRN 57 1.8 FATTY LIVER 03/17/2012 ZENA UMANZOR APRN 78 5.6 MEDIASTINAL MASSES LYMPHADENOPATHY 03/17/2012 ZENA UMANZOR APRN 799.02 HYPOXIA 03/17/2012 ZENA UMANZOR APRN 27 2.1 ESSENTIAL HYPERTRIGLYCERIDEMIA 03/17/2012 ZENA UMANZOR APRN T 278.01 OBESITY MORBID 03/17/2012 ZENA UMANZOR APRN 57 1.8 FATTY LIVER 03/17/2012 ZENA UMANZOR APRN 78 5.6 MEDIASTINAL MASSES LYMPHADENOPATHY 03/17/2012 ZENA UMANZOR APRN [...] K 799.02 HYPOXIA 03/17/2012 ZENA UMANZOR APRN 27 2.1 ESSENTIAL HYPERTRIGLYCERIDEMIA 03/17/2012 ZENA UMANZOR APRN 278.01 OBESITY MORBID 03/17/2012 ZENA UMANZOR APRN 57 1.8 FATTY LIVER 03/17/2012 ZENA UMANZOR APRN 78 5.6 MEDIASTINAL MASSES LYMPHADENOPATHY 03/17/2012 ZENA UMANZOR APRN 799.02 HYPOXIA 03/17/2012 ZENA UMANZOR APRN 27 2.1 ESSENTIAL HYPERTRIGLYCERIDEMIA 03/17/2012 ZENA UMANZOR APRN 278.01 OBESITY MORBID 03/17/2012 ZENA UMANZOR APRN 57 1.8 FATTY LIVER 03/17/2012 ZENA UMANZOR APRN 78 5.6 MEDIASTINAL MASSES LYMPHADENOPATHY 03/17/2012 ZENA UMANZOR APRN 799.02 HYPOXIA 03/17/2012 YAMILETH LAURENT MD 272.1 ESSENTIAL HYPERTRIGLYCERIDEMIA 03/17/2012 YAMILETH LAURENT MD 278.0 1 OBESITY MORBID 03/17/2012 YAMILETH LAURENT MD 571.8 FATTY LIVER 03/17/2012 YAMILETH LAURENT MD 785.6 MEDIASTINAL MASSES LYMPHADENOPATHY 03/17/2012 YAMILETH LAURENT MD 799.0 2 HYPOXIA 03/17/2012 ZENA UMANZOR APRN T 27 2.1 ESSENTIAL HYPERTRIGLYCERIDEMIA 03/17/2012 ZENA UMANZOR APRN T 278.01 OBESITY MORBID 03/17/2012 ZENA UMANZOR APRN T 57 1.8 FATTY LIVER 03/17/2012 ZENA UMANZOR APRN T 78 5.6 MEDIASTINAL MASSES LYMPHADENOPATHY 03/17/2012 ZENA UMANZOR APRN T 799.02 HYPOXIA 03/17/2012 ZENA UMANZOR APRN T 27 2.1 ESSENTIAL HYPERTRIGLYCERIDEMIA 03/17/2012 ZENA UMANZOR APRN T 278.01 OBESITY MORBID 03/17/2012 ZENA UMANZOR APRN T 57 1.8 FATTY LIVER 03/17/2012 ZENA UMANZOR APRN T 78 5.6 MEDIASTINAL MASSES LYMPHADENOPATHY 03/17/2012 ZENA UMANZOR APRN T 799.02 HYPOXIA 03/17/2012 ZENA UMANZOR APRN T 27 2.1 ESSENTIAL HYPERTRIGLYCERIDEMIA 03/17/2012 ZENA UMANZOR APRN T 278.01 OBESITY MORBID 03/17/2012 ZENA UMANZOR APRN T 57 1.8 FATTY LIVER 03/17/2012 ZENA UMANZOR APRN T 78 5.6 MEDIASTINAL MASSES LYMPHADENOPATHY 03/17/2012 ZENA UMANZOR APRN T 799.02 HYPOXIA 03/17/2012 ZENA UMANZOR APRN T 27 2.1 ESSENTIAL HYPERTRIGLYCERIDEMIA 03/17/2012 ZENA UMANZOR APRN T 278.01 OBESITY MORBID 03/17/2012 ZENA UMANZOR APRN T 57 1.8 FATTY LIVER 03/17/2012 ZENA UMANZOR APRN T 78 5.6 MEDIASTINAL MASSES LYMPHADENOPATHY 03/17/2012 ZENA UMANZOR APRN T 799.02 HYPOXIA 03/17/2012 ZENA UMANZOR APRN T 27 2.1 ESSENTIAL HYPERTRIGLYCERIDEMIA 03/17/2012 ZENA UMANZOR APRN T 278.01 OBESITY MORBID 03/17/2012 ZENA UMANZOR APRN T 57 1.8 FATTY LIVER 03/17/2012 ZENA UMANZOR APRN T 78 5.6 MEDIASTINAL MASSES LYMPHADENOPATHY 03/17/2012 ZENA UMANZOR APRN T 799.02 HYPOXIA 03/17/2012 ZENA UMANZOR APRN 27 2.1 ESSENTIAL HYPERTRIGLYCERIDEMIA 03/17/2012 ZENA UMANZOR APRN 278.01 OBESITY MORBID 03/17/2012 ZENA UMANZOR APRN 57 1.8 FATTY LIVER 03/17/2012 ZENA UMANZOR APRN 78 5.6 MEDIASTINAL MASSES LYMPHADENOPATHY 03/17/2012 ZENA UMANZOR APRN 799.02 HYPOXIA 03/17/2012 LOPEZ DO, JESSE K 272.1 ESSENTIAL HYPERTRIGLYCERIDEMIA 03/17/2012 LOPEZ DO, JESSE K 278.01 OBESITY MORBID 03/17/2012 LOPEZ DO, JESSE K 571.8 FATTY LIVER 03/17/2012 LOPEZ DO, JESSE K 785.6 MEDIASTINAL MASSES LYMPHADENOPATHY 03/17/2012 LOPEZ DO, JESSE K 799.02 HYPOXIA 03/17/2012 ZENA UMANZOR APRN 27 2.1 ESSENTIAL HYPERTRIGLYCERIDEMIA 03/17/2012 ZENA UMANZOR APRN 278.01 OBESITY MORBID 03/17/2012 ZENA UMANZOR APRN 57 1.8 FATTY LIVER 03/17/2012 ZENA UMANZOR APRN 78 5.6 MEDIASTINAL MASSES LYMPHADENOPATHY 03/17/2012 ZENA UMANZOR APRN 799.02 HYPOXIA 03/17/2012 ZENA UMANZRO APRN 27 2.1 ESSENTIAL HYPERTRIGLYCERIDEMIA 03/17/2012 ZENA UMANZOR APRN 278.01 OBESITY MORBID 03/17/2012 ZENA UMANZOR APRN 57 1.8 FATTY LIVER 03/17/2012 ZENA UMANZOR APRN 78 5.6 MEDIASTINAL MASSES LYMPHADENOPATHY 03/17/2012 ZENA UMANZOR APRN [...] 799.02 HYPOXIA 03/17/2012 ZENA UMANZOR APRN T 27 2.1 ESSENTIAL HYPERTRIGLYCERIDEMIA 03/17/2012 ZENA UMANZOR APRN T 278.01 OBESITY MORBID 03/17/2012 ZENA UMANZOR APRN T 57 1.8 FATTY LIVER 03/17/2012 ZENA UMANZOR APRN T 78 5.6 MEDIASTINAL MASSES LYMPHADENOPATHY 03/17/2012 ZENA UMANZOR APRN T 799.02 HYPOXIA 03/17/2012 KENDALL OTTO MD 272. 1 ESSENTIAL HYPERTRIGLYCERIDEMIA 03/17/2012 KENDALL OTTO MD 278. 01 OBESITY MORBID 03/17/2012 KENDALL OTTO MD 571. 8 FATTY LIVER 03/17/2012 KENDALL OTTO MD 785. 6 MEDIASTINAL MASSES LYMPHADENOPATHY 03/17/2012 KENDALL OTTO MD 799. 02 HYPOXIA 04/23/2012 KENDALL OTTO MD 244. 9 UNSPECIFIED ACQUIRED HYPOTHYROIDISM 04/23/2012 JESSE LOPEZ DO 244.9 UNSPECIFIED ACQUIRED HYPOTHYROIDISM 04/23/2012 244.9 UNSP ECIFIED ACQUIRED HYPOTHYROIDISM 04/23/2012 244.9 UNSP ECIFIED ACQUIRED HYPOTHYROIDISM 04/23/2012 244.9 UNSP ECIFIED ACQUIRED HYPOTHYROIDISM 04/23/2012 244.9 UNSP ECIFIED ACQUIRED HYPOTHYROIDISM 04/23/2012 244.9 UNSP ECIFIED ACQUIRED HYPOTHYROIDISM 04/23/2012 244.9 UNSP ECIFIED ACQUIRED HYPOTHYROIDISM 04/23/2012 244.9 UNSP ECIFIED ACQUIRED HYPOTHYROIDISM 04/23/2012 244.9 UNSP ECIFIED ACQUIRED HYPOTHYROIDISM 04/23/2012 244.9 UNSP ECIFIED ACQUIRED HYPOTHYROIDISM 04/23/2012 244.9 UNSP ECIFIED ACQUIRED HYPOTHYROIDISM 04/23/2012 244.9 UNSP ECIFIED ACQUIRED HYPOTHYROIDISM 04/23/2012 244.9 UNSP ECIFIED ACQUIRED HYPOTHYROIDISM 04/23/2012 244.9 UNSP ECIFIED ACQUIRED HYPOTHYROIDISM 04/23/2012 244.9 UNSP ECIFIED ACQUIRED HYPOTHYROIDISM 04/23/2012 244.9 UNSP ECIFIED ACQUIRED HYPOTHYROIDISM 04/23/2012 244.9 UNSP ECIFIED ACQUIRED HYPOTHYROIDISM 04/23/2012 244.9 UNSP ECIFIED ACQUIRED HYPOTHYROIDISM 04/23/2012 244.9 UNSP ECIFIED ACQUIRED HYPOTHYROIDISM 04/23/2012 244.9 HYPO THYROIDISM 04/23/2012 244.9 HYPO THYROIDISM 04/23/2012 244.9 HYPO THYROIDISM 04/23/2012 244.9 HYPO THYROIDISM 04/23/2012 LOPEZ DO, JESSE K 244.9 HYPOTHYROIDISM 04/23/2012 CARLYLE STEM CUTTER, ABHISHEK R 244.9 HYPOTHYROIDISM 04/23/2012 JUDY DAVIS, SARAH Law 244.9 HYPOTHYROIDISM 04/23/2012 JUDY DAVIS, SARAH Law 244.9 HYPOTHYROIDISM 04/23/2012 SARAH KIM MD 244.9 HYPOTHYROIDISM 04/23/2012 JUDY DAVIS, SARAH Law 244.9 HYPOTHYROIDISM 04/23/2012 SARAH KIM MD 244.9 [...] MD 244.9 HYPOTHYROIDISM 04/23/2012 ZENA UMANZOR APRN T 24 4.9 HYPOTHYROIDISM 04/23/2012 ZENA UMANZOR APRN T 24 4.9 HYPOTHYROIDISM 04/23/2012 ZENA UMANZOR APRN T 24 4.9 HYPOTHYROIDISM 04/23/2012 ZENA UMANZOR APRN T 24 4.9 HYPOTHYROIDISM 04/23/2012 LOPEZ DO, JESSE K 244.9 HYPOTHYROIDISM 04/23/2012 ZENA UMANZOR APRN T 24 4.9 HYPOTHYROIDISM 04/23/2012 ZENA UMANZOR APRN T 24 4.9 HYPOTHYROIDISM 04/23/2012 ZENA UMANZOR APRN T 24 4.9 HYPOTHYROIDISM 04/23/2012 ZENA UMANZOR APRN T 24 4.9 HYPOTHYROIDISM 04/23/2012 ZENA UMANZOR APRN T 24 4.9 HYPOTHYROIDISM 04/23/2012 LOPEZ DO, JESSE K 244.9 HYPOTHYROIDISM 04/23/2012 LOPEZ DO, JESSE K 244.9 HYPOTHYROIDISM 04/23/2012 ZENA UMANZOR APRN T 24 4.9 HYPOTHYROIDISM 04/23/2012 ZENA UMANZOR APRN T 24 4.9 HYPOTHYROIDISM 04/23/2012 YAMILETH LAURENT MD 244.9 HYPOTHYROIDISM 04/23/2012 NOÉ WHITEKamila ZENA T 24 4.9 HYPOTHYROIDISM 04/23/2012 NOÉ WHITEKamila ZENA T 24 4.9 HYPOTHYROIDISM 04/23/2012 NOÉ WHITEKamila ZENA T 24 4.9 HYPOTHYROIDISM 04/23/2012 NOÉ WHITEKamila ZENA T 24 4.9 HYPOTHYROIDISM 04/23/2012 NOÉ WHITEKamila ZENA T 24 4.9 HYPOTHYROIDISM 04/23/2012 NOÉ WHITEKamila ZENA T 24 4.9 HYPOTHYROIDISM 04/23/2012 LOPEZ CLEO CASEA K 244.9 HYPOTHYROIDISM 04/23/2012 NOÉ WHITEKamila ZENA T 24 4.9 HYPOTHYROIDISM 04/23/2012 NOÉ WHITEKamila ZENA T 24 4.9 HYPOTHYROIDISM 04/23/2012 LOPEZ DO, JESSE K 244.9 HYPOTHYROIDISM 04/23/2012 LOPEZ JESSE K 244.9 HYPOTHYROIDISM 04/23/2012 NOÉ WHITEKamila ZENA T 24 4.9 HYPOTHYROIDISM 04/23/2012 FAM DAVIS, KENDALL 244. 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 05/14/2012 Ot 540.9 ACUT E APPENDICITIS NOS 05/14/2012 Ot 599.0 URIN TRACT INFECTION NOS 05/14/2012 Ot 620.2 OVAR RAUL CYST NEC/NOS 05/14/2012 Ot 785.6 ENLA RGEMENT LYMPH NODES 05/14/2012 Ot 789.59 OTH ER ASCITES 05/14/2012 Ot 790.6 ABN BLOOD CHEMISTRY NEC 05/14/2012 Ot 799.02 HYP OXEMIA 05/14/2012 Ot E935.4 ADV EFF AROM ANALGSC NEC 05/14/2012 Ot V85.42 BOD Y MASS INDEX 45.0-49.9, ADULT 06/30/2012 Ot 300.4 DYST HYMIC DISORDER 06/30/2012 Ot 416.8 CHR PULMON HEART DIS NEC 06/30/2012 Ot 428.30 UNS PEC DIASTOLIC HRT FAILURE 06/30/2012 Ot 724.5 BACK ACHE NOS 06/30/2012 Ot 729.81 SWE LLING OF LIMB 06/30/2012 Ot 785.0 TACH YCARDIA NOS 06/30/2012 Ot 786.09 RES PIRATORY ABNORM NEC 06/30/2012 Ot V46.2 SUPP LEMENTAL OXYGEN 06/30/2012 Ot V58.66 GLORIA G-TERM (CURRENT) USE OF ASPIRIN 06/30/2012 Ot V58.69 OTH MED,LT,CURRENT USE 10/21/2012 JESSE LOPEZ DO 338.4 CHRONIC PAIN SYNDROME 10/21/2012 338.4 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 YVETTE PAIN SYNDROME 10/21/2012 338.4 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 YVETTE PAIN SYNDROME 10/21/2012 338.4 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 YVETTE PAIN SYNDROME 10/21/2012 338.4 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 YVETTE PAIN SYNDROME 10/21/2012 338.4 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 YVETTE PAIN SYNDROME 10/21/2012 338.4 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 YVETTE PAIN SYNDROME 10/21/2012 338.4 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 YVETTE PAIN SYNDROME 10/21/2012 338.4 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 YVETTE PAIN SYNDROME 10/21/2012 338.4 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 YVETTE PAIN SYNDROME 10/21/2012 338.4 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 YVETTE PAIN SYNDROME 10/21/2012 338.4 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 YVETTE PAIN SYNDROME 10/21/2012 338.4 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 YVETTE PAIN SYNDROME 10/21/2012 338.4 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 YVETTE PAIN SYNDROME 10/21/2012 338.4 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 YVETTE PAIN SYNDROME 10/21/2012 338.4 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 YVETTE PAIN SYNDROME 10/21/2012 338.4 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 YVETTE PAIN SYNDROME 10/21/2012 338.4 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 YVETTE PAIN SYNDROME 10/21/2012 338.4 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 YVETTE PAIN SYNDROME 10/21/2012 338.4 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 YVETTE PAIN SYNDROME 10/21/2012 338.4 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 YVETTE PAIN SYNDROME 10/21/2012 338.4 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 YVETTE PAIN SYNDROME 10/21/2012 338.4 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 YVETTE PAIN SYNDROME 10/21/2012 JESSE LOPEZ DO 338.4 CHRONIC PAIN SYNDROME 10/21/2012 ABHISHEK TADEO APRN 338.4 CHRONIC PAIN SYNDROME 10/21/2012 SARAH KIM [...] MD 338.4 CHRONIC PAIN SYNDROME 10/21/2012 NOÉ NETTLES ZENA T 33 8.4 CHRONIC PAIN SYNDROME 10/21/2012 ZENA UMANZOR APRN T 33 8.4 CHRONIC PAIN SYNDROME 10/21/2012 ZENA UMANZOR APRN T 33 8.4 CHRONIC PAIN SYNDROME 10/21/2012 NOÉ NETTLES ZENA T 33 8.4 CHRONIC PAIN SYNDROME 10/21/2012 LOPEZ DO, JESSE K 338.4 CHRONIC PAIN SYNDROME 10/21/2012 NOÉ NETTLES ZENA T 33 8.4 CHRONIC PAIN SYNDROME 10/21/2012 NOÉ NETTLES ZENA T 33 8.4 CHRONIC PAIN SYNDROME 10/21/2012 NOÉ NETTLES ZENA T 33 8.4 CHRONIC PAIN SYNDROME 10/21/2012 NOÉ NETTLES ZENA T 33 8.4 CHRONIC PAIN SYNDROME 10/21/2012 NOÉ NETTLES ZENA T 33 8.4 CHRONIC PAIN SYNDROME 10/21/2012 LOPEZ DO, JESSE K 338.4 CHRONIC PAIN SYNDROME 10/21/2012 LOPEZ DO, JESSE K 338.4 CHRONIC PAIN SYNDROME 10/21/2012 NOÉ NETTLES ZENA T 33 8.4 CHRONIC PAIN SYNDROME 10/21/2012 NOÉ NETTLES ZENA T 33 8.4 CHRONIC PAIN SYNDROME 10/21/2012 YAMILETH LAURENT MD 338.4 CHRONIC PAIN SYNDROME 10/21/2012 NOÉ NETTLES ZENA T 33 8.4 CHRONIC PAIN SYNDROME 10/21/2012 NOÉ NETTLES ZENA T 33 8.4 CHRONIC PAIN SYNDROME 10/21/2012 NOÉ NETTLES EZNA T 33 8.4 CHRONIC PAIN SYNDROME 10/21/2012 NOÉ STEM CUTTER, ZENA T 33 8.4 CHRONIC PAIN SYNDROME 10/21/2012 NOÉ STEM CUTTER, ZENA T 33 8.4 CHRONIC PAIN SYNDROME 10/21/2012 NOÉ STEM CUTTER, ZENA T 33 8.4 CHRONIC PAIN SYNDROME 10/21/2012 LOPEZ DO, JESSE K 338.4 CHRONIC PAIN SYNDROME 10/21/2012 NOÉ STEM CUTTER, ZENA T 33 8.4 CHRONIC PAIN SYNDROME 10/21/2012 NOÉ STEM CUTTER, ZENA T 33 8.4 CHRONIC PAIN SYNDROME 10/21/2012 LOPEZ DO, JESSE K 338.4 CHRONIC PAIN SYNDROME 10/21/2012 LOPEZ DO, JESSE K 338.4 CHRONIC PAIN SYNDROME 10/21/2012 NOÉ STEM CUTTER, ZENA T 33 8.4 CHRONIC PAIN SYNDROME 11/18/2012 466.0 BRON CHITIS, ACUTE 11/18/2012 466.0 Bron chitis, Acute 11/18/2012 466.0 Bron chitis, Acute 11/18/2012 466.0 Bron chitis, Acute 11/18/2012 466.0 Bron chitis, Acute 11/18/2012 466.0 Bron chitis, Acute 11/18/2012 466.0 Bron chitis, Acute 11/18/2012 466.0 Bron chitis, Acute 11/18/2012 466.0 Bron chitis, Acute 11/18/2012 466.0 Bron chitis, Acute 11/18/2012 466.0 Bron chitis, Acute 11/18/2012 466.0 Bron chitis, Acute 11/18/2012 466.0 Bron chitis, Acute 11/18/2012 466.0 Bron chitis, Acute 11/18/2012 466.0 Bron chitis, Acute 11/18/2012 466.0 Bron chitis, Acute 11/18/2012 466.0 Bron chitis, Acute 11/18/2012 466.0 Bron chitis, Acute 11/18/2012 466.0 Bron chitis, Acute 11/18/2012 466.0 Bron chitis, Acute 11/18/2012 466.0 Bron chitis, Acute 11/18/2012 466.0 Bron chitis, Acute 11/18/2012 LOPEZ DO, JESSE K 466.0 Bronchitis, Acute 11/18/2012 CARLYLE NETTLES, ABHISHEK R 466.0 Bronchitis, Acute 11/18/2012 JUDY DAVIS, SARAH Law 466.0 Bronchitis, Acute 11/18/2012 JUDY DAVIS, SARAH M 466.0 Bronchitis, Acute 11/18/2012 JUDY DAVIS, SARAH M 466.0 Bronchitis, Acute 11/18/2012 JUDY DAVIS, SARAH M 466.0 Bronchitis, Acute 11/18/2012 JUDY DAVIS, SARAH M 466.0 Bronchitis, Acute 11/18/2012 ANASTASIIA DAVIS, YAMILETH 466.0 Bronchitis, Acute 11/18/2012 ANASTASIIA DAVIS, YAMILETH 466.0 Bronchitis, Acute 11/18/2012 LOPEZ DO, JESSE [...] Bronchitis, Acute 11/18/2012 NOÉ NETTLES ZENA T 46 6.0 Bronchitis, Acute 11/18/2012 NOÉ NETTLES ZENA T 46 6.0 Bronchitis, Acute 11/18/2012 NOÉ NETTLES ZENA T 46 6.0 Bronchitis, Acute 11/18/2012 NOÉ NETTLES ZENA T 46 6.0 Bronchitis, Acute 11/18/2012 LOPEZ DO, JESSE K 466.0 Bronchitis, Acute 11/18/2012 NOÉ NETTLES ZENA T 46 6.0 Bronchitis, Acute 11/18/2012 NOÉ NETTLES ZENA T 46 6.0 Bronchitis, Acute 11/18/2012 NOÉ NETTLES ZENA T 46 6.0 Bronchitis, Acute 11/18/2012 NOÉ NETTLES ZENA T 46 6.0 Bronchitis, Acute 11/18/2012 NOÉ NETTLES ZENA T 46 6.0 Bronchitis, Acute 11/18/2012 LOPEZ DO, JESSE K 466.0 Bronchitis, Acute 11/18/2012 LOPEZ DO, JESSE K 466.0 Bronchitis, Acute 11/18/2012 NOÉ NETTLES ZENA T 46 6.0 Bronchitis, Acute 11/18/2012 NOÉ NETTLES ZENA T 46 6.0 Bronchitis, Acute 11/18/2012 YAMILETH LAURENT MD 466.0 Bronchitis, Acute 11/18/2012 NOÉ STEM CUTTER, ZENA T 46 6.0 Bronchitis, Acute 11/18/2012 NOÉ STEM CUTTER, ZENA T 46 6.0 Bronchitis, Acute 11/18/2012 NOÉ STEM CUTTER, ZENA T 46 6.0 Bronchitis, Acute 11/18/2012 NOÉ STEM CUTTER, ZENA T 46 6.0 Bronchitis, Acute 11/18/2012 NOÉ STEM CUTTER, ZENA T 46 6.0 Bronchitis, Acute 11/18/2012 NOÉ STEM CUTTER, ZENA T 46 6.0 Bronchitis, Acute 11/18/2012 LOPEZ DO, JESSE K 466.0 Bronchitis, Acute 11/18/2012 NOÉ STEM CUTTER, ZENA T 46 6.0 Bronchitis, Acute 11/18/2012 NOÉ STEM CUTTER, ZENA T 46 6.0 Bronchitis, Acute 11/18/2012 LOPEZ DO, JESSE K 466.0 Bronchitis, Acute 11/18/2012 LOPEZ DO, JESSE K 466.0 Bronchitis, Acute 11/18/2012 NOÉ STEM CUTTER, ZENA T 46 6.0 Bronchitis, Acute 12/08/2012 Ot 276.8 HYPO POTASSEMIA 12/08/2012 Ot 278.01 MOR BID OBESITY 12/08/2012 Ot 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 12/08/2012 Ot 338.29 OTH ER CHRONIC PAIN 12/08/2012 Ot 486 PNEUMO IZZY, ORGANISM NOS 12/08/2012 Ot 491.21 OBS TR CHRONIC BRONCHITIS, W (ACUTE) EXAC 12/08/2012 Ot 571.8 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 YVETTE LIVER DIS NEC 12/08/2012 Ot 724.5 BACK ACHE NOS 12/08/2012 Ot 729.1 MYAL MO AND MYOSITIS NOS 12/08/2012 Ot 787.20 DYS PHAGIA, UNSPECIFIED 12/08/2012 Ot 799.02 HYP OXEMIA 12/08/2012 Ot V85.42 BOD Y MASS INDEX 45.0-49.9, ADULT 12/10/2012 Ot 787.20 DYS PHAGIA, UNSPECIFIED 12/10/2012 Ot V57.3 CARE INVOLVING SPEECH-LANGUAGE THERAPY 12/22/2012 Ot 276.1 HYPO SMOLALITY 12/22/2012 Ot 278.01 MOR BID OBESITY 12/22/2012 Ot 278.03 OBE SITY HYPOVENTILATION SYNDROME 12/22/2012 Ot 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 12/22/2012 Ot 327.23 OBS TRUCTIVE SLEEP APNEA (ADULT) (PEDIATR 12/22/2012 Ot 416.8 CHR PULMON HEART DIS NEC 12/22/2012 Ot 428.0 DUY ESTIVE HEART FAILURE NOS 12/22/2012 Ot 428.33 ACU TE CHRONIC DIASTOLIC HRT FAILURE 12/22/2012 Ot 491.21 OBS TR CHRONIC BRONCHITIS, W (ACUTE) EXAC 12/22/2012 Ot 724.2 LUMBAGO 12/22/2012 Ot 785.6 ENLA RGEMENT LYMPH NODES 12/22/2012 Ot 799.02 HYP OXEMIA 12/22/2012 Ot V85.43 BOD Y MASS INDEX 50.0-59.9, ADULT 12/28/2012 Ot 276.51 DEH YDRATION 12/28/2012 Ot 278.01 MOR BID OBESITY 12/28/2012 Ot 278.03 OBE SITY HYPOVENTILATION SYNDROME 12/28/2012 Ot 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 12/28/2012 Ot 327.23 OBS TRUCTIVE SLEEP APNEA (ADULT) (PEDIATR 12/28/2012 Ot 428.0 DUY ESTIVE HEART FAILURE NOS 12/28/2012 Ot 428.30 UNS PEC DIASTOLIC HRT FAILURE 12/28/2012 Ot 496 CHR AI RWAY OBSTRUCT NEC 12/28/2012 Ot 558.9 LUIS NF GASTROENTERIT NEC 12/28/2012 Ot 571.8 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 YVETTE LIVER DIS NEC 12/28/2012 Ot 593.9 DEYANIRA L URETERAL DIS NOS 12/28/2012 Ot 729.1 MYAL MO AND MYOSITIS NOS 12/28/2012 Ot 790.29 OTH ER ABNORMAL GLUCOSE 12/28/2012 Ot 799.02 HYP OXEMIA 12/28/2012 Ot V85.43 BOD Y MASS INDEX 50.0-59.9, ADULT 12/31/2012 Ot 244.9 HYPO THYROIDISM NOS 12/31/2012 Ot 278.01 MOR BID OBESITY 12/31/2012 Ot 338.4 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 YVETTE PAIN SYNDROME 12/31/2012 Ot 496 CHR AI RWAY OBSTRUCT NEC 12/31/2012 Ot 965.09 POI SONING-OPIATES NEC 12/31/2012 Ot E849.0 ACC IDENT IN HOME 12/31/2012 Ot E850.2 ACC POISON- OPIATES NEC 12/31/2012 Ot V85.42 BOD Y MASS INDEX 45.0-49.9, ADULT 01/06/2013 135 SARCOI DOSIS 01/06/2013 V65.42 COU NSELING - SMOKING CESSATION 01/06/2013 V77.1 DIAB ETES SCREENING 01/06/2013 135 SARCOI DOSIS 01/06/2013 V65.42 COU NSELING - SMOKING CESSATION 01/06/2013 V77.1 DIAB ETES SCREENING 01/06/2013 135 SARCOI DOSIS 01/06/2013 V65.42 COU NSELING - SMOKING CESSATION 01/06/2013 V77.1 DIAB ETES SCREENING 01/06/2013 135 SARCOI DOSIS 01/06/2013 V65.42 COU NSELING - SMOKING CESSATION 01/06/2013 V77.1 DIAB ETES SCREENING 01/06/2013 135 SARCOI DOSIS 01/06/2013 V65.42 COU NSELING - SMOKING CESSATION 01/06/2013 V77.1 DIAB ETES SCREENING 01/06/2013 135 SARCOI DOSIS 01/06/2013 V65.42 COU NSELING - SMOKING CESSATION 01/06/2013 V77.1 DIAB ETES SCREENING 01/06/2013 135 SARCOI DOSIS 01/06/2013 V65.42 COU NSELING - SMOKING CESSATION 01/06/2013 V77.1 DIAB ETES SCREENING 01/06/2013 135 SARCOI DOSIS 01/06/2013 V65.42 COU NSELING - SMOKING CESSATION 01/06/2013 V77.1 DIAB ETES SCREENING 01/06/2013 135 SARCOI DOSIS 01/06/2013 V65.42 COU NSELING - SMOKING CESSATION 01/06/2013 V77.1 DIAB ETES SCREENING 01/06/2013 135 SARCOI DOSIS 01/06/2013 V65.42 COU NSELING - SMOKING CESSATION 01/06/2013 V77.1 DIAB ETES SCREENING 01/06/2013 135 SARCOI DOSIS 01/06/2013 V65.42 COU NSELING - SMOKING CESSATION 01/06/2013 V77.1 DIAB ETES SCREENING 01/06/2013 135 SARCOI DOSIS 01/06/2013 V65.42 COU NSELING - SMOKING CESSATION 01/06/2013 V77.1 DIAB ETES SCREENING 01/06/2013 135 SARCOI DOSIS 01/06/2013 V65.42 COU NSELING - SMOKING CESSATION 01/06/2013 V77.1 DIAB ETES SCREENING 01/06/2013 135 SARCOI DOSIS 01/06/2013 V65.42 COU NSELING - SMOKING CESSATION 01/06/2013 V77.1 DIAB ETES SCREENING 01/06/2013 135 SARCOI DOSIS 01/06/2013 V65.42 COU NSELING - SMOKING CESSATION 01/06/2013 V77.1 DIAB ETES SCREENING 01/06/2013 135 SARCOI DOSIS 01/06/2013 V65.42 COU NSELING - SMOKING CESSATION 01/06/2013 V77.1 DIAB ETES SCREENING 01/06/2013 135 SARCOI DOSIS 01/06/2013 V65.42 COU NSELING - SMOKING CESSATION 01/06/2013 V77.1 DIAB ETES SCREENING 01/06/2013 135 SARCOI DOSIS 01/06/2013 V65.42 COU NSELING - SMOKING CESSATION 01/06/2013 V77.1 DIAB ETES SCREENING 01/06/2013 LOPEZ DO JESSE K 135 SARCOIDOSIS 01/06/2013 LOPEZ DOCLEOA K V65.42 COUNSELING - SMOKING CESSATION 01/06/2013 LOPEZ DO JESSE K V77.1 DIABETES SCREENING 01/06/2013 MARIO TADEO APRNIA R 135 SARCOIDOSIS 01/06/2013 MARIO TADEO APRNIA R V65.42 COUNSELING - SMOKING CESSATION 01/06/2013 ABHISHEK TADEO APRN R V77.1 DIABETES SCREENING 01/06/2013 SARAH KIM MD [...] LAURENT MD SARCOIDOSIS 01/06/2013 YAMILETH LAURENT MD V65.4 2 COUNSELING - SMOKING CESSATION 01/06/2013 YAMILETH LAURENT MD V77.1 DIABETES SCREENING 01/06/2013 YAMILETH LAURENT MD SARCOIDOSIS 01/06/2013 YAMILETH LAURENT MD V65.4 2 COUNSELING - SMOKING CESSATION 01/06/2013 YAMILETH LAURENT MD V77.1 DIABETES SCREENING 01/06/2013 JOHN CASE JESSE K 135 SARCOIDOSIS 01/06/2013 LOPEZ DO JESSE K V65.42 COUNSELING - SMOKING CESSATION 01/06/2013 LOPEZ DO JESSE K V77.1 DIABETES SCREENING 01/06/2013 LOPEZ DO JESSE K 135 SARCOIDOSIS 01/06/2013 LOPEZ DO, JESSE K V65.42 COUNSELING - SMOKING CESSATION 01/06/2013 LOPEZ DO, JESSE K V77.1 DIABETES SCREENING 01/06/2013 LOPEZ DO, JESSE K 135 SARCOIDOSIS 01/06/2013 LOPEZ DO JESSE K V65.42 COUNSELING - SMOKING CESSATION 01/06/2013 LOPEZ DO, JESSE K V77.1 DIABETES SCREENING 01/06/2013 LOPEZ DO, JESSE K 135 SARCOIDOSIS 01/06/2013 LOPEZ DO JESSE K V65.42 COUNSELING - SMOKING CESSATION 01/06/2013 JOHN CASE JESSE K V77.1 DIABETES SCREENING 01/06/2013 YAMILETH LAURENT MD SARCOIDOSIS 01/06/2013 YAMILETH LAURENT MD V65.4 2 COUNSELING - SMOKING CESSATION 01/06/2013 YAMILETH LAURENT MD V77.1 DIABETES SCREENING 01/06/2013 YAMILETH LAURENT MD SARCOIDOSIS 01/06/2013 YAMILETH LAURENT MD V65.4 2 COUNSELING - SMOKING CESSATION 01/06/2013 YAMILETH LAURENT MD V77.1 DIABETES SCREENING 01/06/2013 JOHN CASE JESSE K 135 SARCOIDOSIS 01/06/2013 JOHN CASE JESSE K V65.42 COUNSELING - SMOKING CESSATION 01/06/2013 LOPEZ DO, JESSE K V77.1 DIABETES SCREENING 01/06/2013 YAMILETH LAURENT MD 135 SARCOIDOSIS 01/06/2013 YAMILETH LAURENT MD V65.4 2 COUNSELING - SMOKING CESSATION 01/06/2013 YAMILETH LAURENT MD V77.1 DIABETES SCREENING 01/06/2013 ZENA UMANZOR APRN T 13 5 SARCOIDOSIS 01/06/2013 ZENA UMANZOR APRN T V65.42 COUNSELING - SMOKING CESSATION 01/06/2013 ZENA UMANZOR APRN T V7 7.1 DIABETES SCREENING 01/06/2013 ZENA UMANZRO APRN T 13 5 SARCOIDOSIS 01/06/2013 NOÉ WHITENZENA T V65.42 COUNSELING - SMOKING CESSATION 01/06/2013 ZENA UMANZOR APRN T V7 7.1 DIABETES SCREENING 01/06/2013 ZENA UMANZOR APRN T 13 5 SARCOIDOSIS 01/06/2013 ZENA UMANZOR APRN T V65.42 COUNSELING - SMOKING CESSATION 01/06/2013 ZENA UMANZOR APRN V7 7.1 DIABETES SCREENING 01/06/2013 ZENA UMANZOR APRN T 13 5 SARCOIDOSIS 01/06/2013 ZENA UMANZOR APRN T V65.42 COUNSELING - SMOKING CESSATION 01/06/2013 ZENA UMANZOR APRN T V7 7.1 DIABETES SCREENING 01/06/2013 LOPEZ DO, JESSE K 135 SARCOIDOSIS 01/06/2013 LOPEZ DO, JESSE K V65.42 COUNSELING - SMOKING CESSATION 01/06/2013 LOPEZ DO, JESSE K V77.1 DIABETES SCREENING 01/06/2013 ZENA UMANZOR APRN T 13 5 SARCOIDOSIS 01/06/2013 ZENA UMANZOR APRN T V65.42 COUNSELING - SMOKING CESSATION 01/06/2013 ZENA UMANZOR APRN T V7 7.1 DIABETES SCREENING 01/06/2013 ZENA UMANZOR APRN T 13 5 SARCOIDOSIS 01/06/2013 ZENA UMANZOR APRN T V65.42 COUNSELING - SMOKING CESSATION 01/06/2013 ZENA UMANZOR APRN T V7 7.1 DIABETES SCREENING 01/06/2013 ZENA UMANZOR APRN T 13 5 SARCOIDOSIS 01/06/2013 ZENA UMANZOR APRN T V65.42 COUNSELING - SMOKING CESSATION 01/06/2013 ZENA UMANZOR APRN T V7 7.1 DIABETES SCREENING 01/06/2013 ZENA UMANZOR APRN T 13 5 SARCOIDOSIS 01/06/2013 ZENA UMANZOR APRN T V65.42 COUNSELING - SMOKING CESSATION 01/06/2013 ZENA UMANZOR APRN V7 7.1 DIABETES SCREENING 01/06/2013 ZENA UMANZOR APRN 13 5 SARCOIDOSIS 01/06/2013 ZENA UMANZOR APRN T V65.42 COUNSELING - SMOKING CESSATION 01/06/2013 ZENA UMANZOR APRN T V7 7.1 DIABETES SCREENING 01/06/2013 LOPEZ DO, JESSE K 135 SARCOIDOSIS 01/06/2013 LOPEZ DO, JESSE K V65.42 COUNSELING - SMOKING CESSATION 01/06/2013 LOPEZ DO, JESSE K V77.1 DIABETES SCREENING 01/06/2013 LOPEZ DO, JESSE K 135 SARCOIDOSIS 01/06/2013 LOPEZ DO, JESSE K V65.42 COUNSELING - SMOKING CESSATION 01/06/2013 LOPEZ DO, JESSE K V77.1 DIABETES SCREENING 01/06/2013 ZENA UMANZOR APRN 13 5 SARCOIDOSIS 01/06/2013 ZENA UMANZOR APRN V65.42 COUNSELING - SMOKING CESSATION 01/06/2013 ZENA UMANZOR APRN V7 7.1 DIABETES SCREENING 01/06/2013 ZENA UMANZOR APRN 13 5 SARCOIDOSIS 01/06/2013 ZENA UMANZOR APRN V65.42 COUNSELING - SMOKING CESSATION 01/06/2013 ZENA UMANZOR APRN V7 7.1 DIABETES SCREENING 01/06/2013 YAMILETH LAURENT MD 135 SARCOIDOSIS 01/06/2013 YAMILETH LAURENT MD V65.4 2 COUNSELING - SMOKING CESSATION 01/06/2013 YAMILETH LAURENT MD V77.1 DIABETES SCREENING 01/06/2013 ZENA UMANZOR APRN 13 5 SARCOIDOSIS 01/06/2013 ZENA UMANZOR APRN V65.42 COUNSELING - SMOKING CESSATION 01/06/2013 ZENA UMANZOR APRN V7 7.1 DIABETES SCREENING 01/06/2013 ZENA UMANZOR APRN 13 5 SARCOIDOSIS 01/06/2013 ZENA UMANZOR APRN T V65.42 COUNSELING - SMOKING CESSATION 01/06/2013 ZENA UMANZOR APRN V7 7.1 DIABETES SCREENING 01/06/2013 ZENA UMANZOR APRN 13 5 SARCOIDOSIS 01/06/2013 ZENA UMANZOR APRN T V65.42 COUNSELING - SMOKING CESSATION 01/06/2013 ZENA UMANZOR APRN V7 7.1 DIABETES SCREENING 01/06/2013 ZENA UMANZOR APRN 13 5 SARCOIDOSIS 01/06/2013 ZENA UMANZOR APRN V65.42 COUNSELING - SMOKING CESSATION 01/06/2013 ZENA UMANZOR APRN V7 7.1 DIABETES SCREENING 01/06/2013 ZENA UMANZOR APRN 13 5 SARCOIDOSIS 01/06/2013 ZENA UMANZOR APRN T V65.42 COUNSELING - SMOKING CESSATION 01/06/2013 ZENA UMANZOR APRN V7 7.1 DIABETES SCREENING 01/06/2013 ZENA UMANZOR APRN 13 5 SARCOIDOSIS 01/06/2013 ZENA UMANZOR APRN V65.42 COUNSELING - SMOKING CESSATION 01/06/2013 ZENA UMANZOR APRN V7 7.1 DIABETES SCREENING 01/06/2013 LOPEZ DO, JESSE K 135 SARCOIDOSIS 01/06/2013 LOPEZ DO, JESSE K V65.42 COUNSELING - SMOKING CESSATION 01/06/2013 LOPEZ DO, JESSE K V77.1 DIABETES SCREENING 01/06/2013 ZENA UMANZOR APRN 13 5 SARCOIDOSIS 01/06/2013 ZENA UMANZOR APRN V65.42 COUNSELING - SMOKING CESSATION 01/06/2013 ZENA UMANZOR APRN V7 7.1 DIABETES SCREENING 01/06/2013 ZENA UMANZOR APRN 13 5 SARCOIDOSIS 01/06/2013 ZENA UMANZOR APRN V65.42 COUNSELING - SMOKING CESSATION 01/06/2013 ZENA UMANZOR APRN V7 7.1 DIABETES SCREENING 01/06/2013 LOPEZ DO, JESSE K 135 SARCOIDOSIS 01/06/2013 LOPEZ DO, JESSE K V65.42 COUNSELING - SMOKING CESSATION 01/06/2013 LOPEZ DO, JESSE K V77.1 DIABETES SCREENING 01/06/2013 LOPEZ DO, JESSE K 135 SARCOIDOSIS 01/06/2013 LOPEZ DO, JESSE K V65.42 COUNSELING - SMOKING CESSATION 01/06/2013 LOPEZ DO, JESSE K V77.1 DIABETES SCREENING 01/06/2013 ZENA UMANZOR APRN 13 5 SARCOIDOSIS 01/06/2013 ZENA UMANZOR APRN T V65.42 COUNSELING - SMOKING CESSATION 01/06/2013 ZENA UMANZOR APRN V7 7.1 DIABETES SCREENING 01/20/2013 276.1 HYPO SMOLALITY AND/OR HYPONATREMIA 01/20/2013 276.8 HYPO KALEMIA 01/20/2013 276.1 HYPO SMOLALITY AND/OR HYPONATREMIA 01/20/2013 276.8 HYPO KALEMIA 01/20/2013 276.1 HYPO SMOLALITY AND/OR HYPONATREMIA 01/20/2013 276.8 HYPO KALEMIA 01/20/2013 276.1 HYPO SMOLALITY AND/OR HYPONATREMIA 01/20/2013 276.8 HYPO KALEMIA 01/20/2013 276.1 HYPO SMOLALITY AND/OR HYPONATREMIA 01/20/2013 276.8 HYPO KALEMIA 01/20/2013 276.1 HYPO SMOLALITY AND/OR HYPONATREMIA 01/20/2013 276.8 HYPO KALEMIA 01/20/2013 276.1 HYPO SMOLALITY AND/OR HYPONATREMIA 01/20/2013 276.8 HYPO KALEMIA 01/20/2013 276.1 HYPO SMOLALITY AND/OR HYPONATREMIA 01/20/2013 276.8 HYPO KALEMIA 01/20/2013 276.1 HYPO SMOLALITY AND/OR HYPONATREMIA 01/20/2013 276.8 HYPO KALEMIA 01/20/2013 276.1 HYPO SMOLALITY AND/OR HYPONATREMIA 01/20/2013 276.8 HYPO KALEMIA 01/20/2013 276.1 HYPO SMOLALITY AND/OR HYPONATREMIA 01/20/2013 276.8 HYPO KALEMIA 01/20/2013 276.1 HYPO SMOLALITY AND/OR HYPONATREMIA 01/20/2013 276.8 HYPO KALEMIA 01/20/2013 276.1 HYPO SMOLALITY AND/OR HYPONATREMIA 01/20/2013 276.8 HYPO KALEMIA 01/20/2013 276.1 HYPO SMOLALITY AND/OR HYPONATREMIA 01/20/2013 276.8 HYPO KALEMIA 01/20/2013 276.1 HYPO SMOLALITY AND/OR HYPONATREMIA 01/20/2013 276.8 HYPO KALEMIA 01/20/2013 276.1 HYPO SMOLALITY AND/OR HYPONATREMIA 01/20/2013 276.8 HYPO KALEMIA 01/20/2013 276.1 HYPO SMOLALITY AND/OR HYPONATREMIA 01/20/2013 276.8 HYPO KALEMIA 01/20/2013 LOPEZ JESSE CASE 276.1 HYPOSMOLALITY AND/OR HYPONATREMIA 01/20/2013 LOPEZ JESSE CASE K 276.8 HYPOKALEMIA 01/20/2013 ABHISHEK TADEO APRN R 276.1 HYPOSMOLALITY AND/OR HYPONATREMIA 01/20/2013 ABHISHEK TADEO APRN R 276.8 HYPOKALEMIA 01/20/2013 SARAH KIM MD 276.1 HYPOSMOLALITY AND/OR HYPONATREMIA 01/20/2013 SARAH IKM MD 276.8 HYPOKALEMIA 01/20/2013 SARAH KIM MD [...] K 276.1 HYPOSMOLALITY AND/OR HYPONATREMIA 01/20/2013 LOPEZ , JESSE K 276.8 HYPOKALEMIA 01/20/2013 YAMILETH LAURENT [...] 276.8 HYPOKALEMIA 01/20/2013 NOÉ NETTLES ZENA T 27 6.1 HYPOSMOLALITY AND/OR HYPONATREMIA 01/20/2013 NOÉ NETTLES ZENA T 27 6.8 HYPOKALEMIA 01/20/2013 NOÉ NETTLES ZENA T 27 6.1 HYPOSMOLALITY AND/OR HYPONATREMIA 01/20/2013 NOÉ NETTLES ZENA T 27 6.8 HYPOKALEMIA 01/20/2013 NOÉ NETTLES ZENA T 27 6.1 HYPOSMOLALITY AND/OR HYPONATREMIA 01/20/2013 NOÉ NETTLES ZENA T 27 6.8 HYPOKALEMIA 01/20/2013 NOÉ NETTLES ZENA T 27 6.1 HYPOSMOLALITY AND/OR HYPONATREMIA 01/20/2013 NOÉ NETTLES ZENA T 27 6.8 HYPOKALEMIA 01/20/2013 LOPEZ DO, JESSE K 276.1 HYPOSMOLALITY AND/OR HYPONATREMIA 01/20/2013 LOPEZ DO, JESSE K 276.8 HYPOKALEMIA 01/20/2013 NOÉ NETTLES ZENA T 27 6.1 HYPOSMOLALITY AND/OR HYPONATREMIA 01/20/2013 NOÉ NETTLES ZENA T 27 6.8 HYPOKALEMIA 01/20/2013 NOÉ NETTLES ZENA T 27 6.1 HYPOSMOLALITY AND/OR HYPONATREMIA 01/20/2013 NOÉ NETTLES ZENA T 27 6.8 HYPOKALEMIA 01/20/2013 NOÉ NETTLES ZENA T 27 6.1 HYPOSMOLALITY AND/OR HYPONATREMIA 01/20/2013 NOÉ NETTLES ZENA T 27 6.8 HYPOKALEMIA 01/20/2013 NOÉ STEM CUTTER, ZENA T 27 6.1 HYPOSMOLALITY AND/OR HYPONATREMIA 01/20/2013 NOÉ NETTLES ZENA T 27 6.8 HYPOKALEMIA 01/20/2013 NOÉ NETTLES ZENA T 27 6.1 HYPOSMOLALITY AND/OR HYPONATREMIA 01/20/2013 NOÉ NETTLES ZENA T 27 6.8 HYPOKALEMIA 01/20/2013 LOPEZ DO, JESSE K 276.1 HYPOSMOLALITY AND/OR HYPONATREMIA 01/20/2013 LOPEZ DO, JESSE K 276.8 HYPOKALEMIA 01/20/2013 LOPEZ DO, JESSE K 276.1 HYPOSMOLALITY AND/OR HYPONATREMIA 01/20/2013 LOPEZ DO, JESSE K 276.8 HYPOKALEMIA 01/20/2013 ZENA UMANZOR APRN T 27 6.1 HYPOSMOLALITY AND/OR HYPONATREMIA 01/20/2013 NOÉ NETTLES ZENA T 27 6.8 HYPOKALEMIA 01/20/2013 ZENA UMANZOR APRN T 27 6.1 HYPOSMOLALITY AND/OR HYPONATREMIA 01/20/2013 NOÉ NETTLES ZENA T 27 6.8 HYPOKALEMIA 01/20/2013 YAMILETH LAURENT MD 276.1 HYPOSMOLALITY AND/OR HYPONATREMIA 01/20/2013 YAMILETH LAURENT MD 276.8 HYPOKALEMIA 01/20/2013 NOÉ NETTLES ZENA T 27 6.1 HYPOSMOLALITY AND/OR HYPONATREMIA 01/20/2013 NOÉ NETTLES ZENA T 27 6.8 HYPOKALEMIA 01/20/2013 NOÉ NETTLES ZENA T 27 6.1 HYPOSMOLALITY AND/OR HYPONATREMIA 01/20/2013 NOÉ NETTLES ZENA T 27 6.8 HYPOKALEMIA 01/20/2013 NOÉ NETTLES ZENA T 27 6.1 HYPOSMOLALITY AND/OR HYPONATREMIA 01/20/2013 NOÉ NETTLES ZENA T 27 6.8 HYPOKALEMIA 01/20/2013 NOÉ NETTLES ZENA T 27 6.1 HYPOSMOLALITY AND/OR HYPONATREMIA 01/20/2013 NOÉ NETTLES ZENA T 27 6.8 HYPOKALEMIA 01/20/2013 NOÉ NETTLES ZENA T 27 6.1 HYPOSMOLALITY AND/OR HYPONATREMIA 01/20/2013 ZENA UMANZOR APRN T 27 6.8 HYPOKALEMIA 01/20/2013 ZENA UMANZOR APRN T 27 6.1 HYPOSMOLALITY AND/OR HYPONATREMIA 01/20/2013 ZENA UMANZOR APRN T 27 6.8 HYPOKALEMIA 01/20/2013 LOPEZ DO, JESSE K 276.1 HYPOSMOLALITY AND/OR HYPONATREMIA 01/20/2013 LOPEZ DO, JESSE K 276.8 HYPOKALEMIA 01/20/2013 ZENA UMANZOR APRN T 27 6.1 HYPOSMOLALITY AND/OR HYPONATREMIA 01/20/2013 ZENA UMANZOR APRN T 27 6.8 HYPOKALEMIA 01/20/2013 ZENA UMANZOR APRN T 27 6.1 HYPOSMOLALITY AND/OR HYPONATREMIA 01/20/2013 ZENA UMANZOR APRN T 27 6.8 HYPOKALEMIA 01/20/2013 LOPEZ DO, JESSE K 276.1 HYPOSMOLALITY AND/OR HYPONATREMIA 01/20/2013 LOPEZ DO, JESSE K 276.8 HYPOKALEMIA 01/20/2013 LOPEZ DO, JESSE K 276.1 HYPOSMOLALITY AND/OR HYPONATREMIA 01/20/2013 LOPEZ DO, JESSE K 276.8 HYPOKALEMIA 01/20/2013 ZENA UMANZOR APRN 27 6.1 HYPOSMOLALITY AND/OR HYPONATREMIA 01/20/2013 ZENA UMANZOR APRN 27 6.8 HYPOKALEMIA 02/03/2013 KENDALL OTTO MD Ot 13 5 SARCOIDOSIS 02/03/2013 KENDALL OTTO MD Ot 244.9 HYPOTHYROIDISM NOS 02/03/2013 KENDALL OTTO MD Ot 276.1 HYPOSMOLALITY 02/03/2013 KENDALL OTTO MD Ot 276.8 HYPOPOTASSEMIA 02/03/2013 KENDALL OTTO MD Ot 278.01 MORBID OBESITY 02/03/2013 KENDALL OTTO MD Ot 305.1 TOBACCO USE DISORDER 02/03/2013 KENDALL OTTO MD Ot 327.23 OBSTRUCTIVE SLEEP APNEA (ADULT) (PEDIATR 02/03/2013 KENDALL OTTO MD Ot 401.9 HYPERTENSION NOS 02/03/2013 KENDALL OTTO MD Ot 416.8 CHR PULMON HEART DIS NEC 02/03/2013 KENDALL OTTO MD Ot 428.0 CONGESTIVE HEART FAILURE NOS 02/03/2013 FAM DAVIS, KENDALL Bang Ot 49 6 CHR AIRWAY OBSTRUCT NEC 02/03/2013 KENDALL OTTO MD Ot 530.11 REFLUX ESOPHAGITIS 02/03/2013 KENDALL OTTO MD Ot 535.51 UNSPEC GASTRITIS GASTRODUODENITIS, W/ 02/03/2013 KENDALL OTTO MD Ot 571.8 CHRONIC LIVER DIS NEC 02/03/2013 KENDALL OTTO MD Ot 729.1 MYALGIA AND MYOSITIS NOS 02/03/2013 KENDALL OTTO MD Ot 785.6 ENLARGEMENT LYMPH NODES 02/03/2013 KENDALL OTTO MD Ot 799.02 HYPOXEMIA 02/03/2013 KENDALL OTTO MD Ot V85.42 BODY MASS INDEX 45.0-49.9, ADULT 02/10/2013 250.00 RAUL BETES II CONTROLLED (UNCOMPLICATED) 02/10/2013 250.00 RAUL BETES II CONTROLLED (UNCOMPLICATED) 02/10/2013 250.00 RAUL BETES II CONTROLLED (UNCOMPLICATED) 02/10/2013 250.00 RAUL BETES II CONTROLLED (UNCOMPLICATED) 02/10/2013 250.00 RAUL BETES II CONTROLLED (UNCOMPLICATED) 02/10/2013 250.00 RAUL BETES MELLITUS TYPE 2 02/10/2013 250.00 RAUL BETES MELLITUS TYPE 2 02/10/2013 250.00 RAUL BETES MELLITUS TYPE 2 02/10/2013 250.00 RAUL BETES MELLITUS TYPE 2 02/10/2013 250.00 RAUL BETES MELLITUS TYPE 2 02/10/2013 250.00 RAUL BETES MELLITUS TYPE 2 02/10/2013 250.00 RAUL BETES MELLITUS TYPE 2 02/10/2013 JESSE LOPEZ DO 250.00 DIABETES MELLITUS TYPE 2 02/10/2013 ABHISHEK TADEO APRN 250.00 DIABETES MELLITUS TYPE 2 02/10/2013 SARAH KIM MD 250.00 DIABETES MELLITUS TYPE 2 02/10/2013 SARAH KIM MD 250.00 DIABETES MELLITUS TYPE 2 02/10/2013 SARAH KIM MD 250.00 DIABETES MELLITUS TYPE 2 02/10/2013 SARAH KIM MD 250.00 DIABETES MELLITUS TYPE 2 02/10/2013 SARAH KIM MD 250.00 DIABETES MELLITUS TYPE 2 02/10/2013 YAMILETH LAURENT MD 250.0 0 DIABETES MELLITUS TYPE 2 02/10/2013 YAMILETH LAURENT MD 250.0 0 DIABETES MELLITUS TYPE 2 02/10/2013 LOPEZ DO, JESSE K 250.00 DIABETES MELLITUS TYPE 2 02/10/2013 LOPEZ DO, JESSE K 250.00 DIABETES MELLITUS TYPE 2 02/10/2013 LOPEZ DO, JESSE K 250.00 DIABETES MELLITUS TYPE 2 02/10/2013 LOPEZ DO, JESSE K 250.00 DIABETES MELLITUS TYPE 2 02/10/2013 YAMILETH LAURENT MD 250.0 0 DIABETES MELLITUS TYPE 2 02/10/2013 YAMILETH LAURENT MD 250.0 0 DIABETES MELLITUS TYPE 2 02/10/2013 LOPEZ DO, JESSE K 250.00 DIABETES MELLITUS TYPE 2 02/10/2013 YAMILETH LAURENT MD 250.0 0 DIABETES MELLITUS TYPE 2 02/10/2013 NOÉ NETTLES ZENA T 250.00 DIABETES MELLITUS TYPE 2 02/10/2013 NOÉ NETTLES ZENA T 250.00 DIABETES MELLITUS TYPE 2 02/10/2013 NOÉ NETTLES ZENA T 250.00 DIABETES MELLITUS TYPE 2 02/10/2013 NOÉ NETTLES ZENA T 250.00 DIABETES MELLITUS TYPE 2 02/10/2013 LOPEZ DO, JESSE K 250.00 DIABETES MELLITUS TYPE 2 02/10/2013 NOÉ NETTLES, ZENA T 250.00 DIABETES MELLITUS TYPE 2 02/10/2013 NOÉ NETTLES ZENA T 250.00 DIABETES MELLITUS TYPE 2 02/10/2013 NOÉ NETTLES, ZENA T 250.00 DIABETES MELLITUS TYPE 2 02/10/2013 NOÉ NETTLES ZENA T 250.00 DIABETES MELLITUS TYPE 2 02/10/2013 NOÉ NETTLES ZENA T 250.00 DIABETES MELLITUS TYPE 2 02/10/2013 LOPEZ DO, JESSE K 250.00 DIABETES MELLITUS TYPE 2 02/10/2013 LOPEZ DO, JESSE K 250.00 DIABETES MELLITUS TYPE 2 02/10/2013 NOÉ NETTLES ZENA T 250.00 DIABETES MELLITUS TYPE 2 02/10/2013 NOÉ NETTLES ZENA T 250.00 DIABETES MELLITUS TYPE 2 02/10/2013 YAMILETH LAURENT MD 250.0 0 DIABETES MELLITUS TYPE 2 02/10/2013 NOÉ NETTLES ZENA T 250.00 DIABETES MELLITUS TYPE 2 02/10/2013 NOÉ NETTLES ZENA T 250.00 DIABETES MELLITUS TYPE 2 02/10/2013 NOÉ NETTLES ZENA T 250.00 DIABETES MELLITUS TYPE 2 02/10/2013 ZENA UMANZOR APRN T 250.00 DIABETES MELLITUS TYPE 2 02/10/2013 NOÉ NETTLES ZENA T 250.00 DIABETES MELLITUS TYPE 2 02/10/2013 NOÉ NETTLES, ZENA T 250.00 DIABETES MELLITUS TYPE 2 02/10/2013 LOPEZ DO, JESSE K 250.00 DIABETES MELLITUS TYPE 2 02/10/2013 NOÉ NETTLES ZENA T 250.00 DIABETES MELLITUS TYPE 2 02/10/2013 NOÉ NETTLES ZENA T 250.00 DIABETES MELLITUS TYPE 2 02/10/2013 LOPEZ DO, JESSE K 250.00 DIABETES MELLITUS TYPE 2 02/10/2013 LOPEZ DO, JESSE K 250.00 DIABETES MELLITUS TYPE 2 02/10/2013 ZENA UMANZOR APRN T 250.00 DIABETES MELLITUS TYPE 2 02/16/2013 LOPEZ DO, JESSE K Ot 135 SARCOIDOSIS 02/16/2013 OLPEZ DO, JESSE K Ot 244.9 HYPOTHYROIDISM NOS 02/16/2013 LOPEZ DO, JESSE K Ot 249.00 SEC DIABETES MELLITUS W/OUT MENTION COMP 02/16/2013 JOHN CASE JESSE K Ot 276.1 HYPOSMOLALITY 02/16/2013 JOHN CASE, JESSE K Ot 276.2 ACIDOSIS 02/16/2013 LOPEZ DO, JESSE K Ot 276.8 HYPOPOTASSEMIA 02/16/2013 JOHN CASE, JESSE K Ot 278.01 MORBID OBESITY 02/16/2013 JOHN CASE, JESSE K Ot 278.03 OBESITY HYPOVENTILATION SYNDROME 02/16/2013 JOHN CASE, JESSE K Ot 305.1 TOBACCO USE DISORDER 02/16/2013 JOHN CASE JESSE K Ot 327.23 OBSTRUCTIVE SLEEP APNEA (ADULT) (PEDIATR 02/16/2013 JOHN CASE JESSE K Ot 338.29 OTHER CHRONIC PAIN 02/16/2013 JOHN DO, JESSE K Ot 401.9 HYPERTENSION NOS 02/16/2013 LOPEZ DO, JESSE K Ot 428.0 CONGESTIVE HEART FAILURE NOS 02/16/2013 JOHN CASE, JESSE K Ot 496 CHR AIRWAY OBSTRUCT NEC 02/16/2013 LOPEZ DO, JESSE K Ot 518.81 ACUTE RESPIRATORY FAILURE 02/16/2013 JOHN CASE, JESSE K Ot 584.9 ACUTE RENAL FAILURE, UNSPECIFIED 02/16/2013 JOHN CASE JESSE K Ot E932.0 ADV EFF CORTICOSTEROIDS 02/16/2013 JOHN CASE JESSE K Ot V15.81 HX OF PAST NONCOMPLIANCE 02/16/2013 JESSE LOPEZ DO Ot V46.2 SUPPLEMENTAL OXYGEN 02/16/2013 JESSE LOPEZ DO Ot V58.65 LONG-TERM(CURRENT)USE OF STEROIDS 02/16/2013 JESSE LOPEZ DO Ot V85.42 BODY MASS INDEX 45.0-49.9, ADULT 05/09/2013 YAMILETH LAURENT MD Ot 135 SARCOIDOSIS 05/09/2013 YAMILETH LAURENT MD Ot 244 .9 HYPOTHYROIDISM NOS 05/09/2013 YAMILETH LAURENT MD Ot 250.00 DIAB CALIN WO COMPL, TYPE II OR UNSPEC TY 05/09/2013 YAMILETH LAURENT MD Ot 276 .2 ACIDOSIS 05/09/2013 YAMILETH LAURENT MD Ot 278.01 MORBID OBESITY 05/09/2013 YAMILETH LAURENT MD Ot 338.29 OTHER CHRONIC PAIN 05/09/2013 YAMILETH LAURENT MD Ot 496 CHR AIRWAY OBSTRUCT NEC 05/09/2013 YAMILETH LAURENT MD Ot 518.81 ACUTE RESPIRATORY FAILURE 05/09/2013 YAMILETH LAURENT MD Ot V46 .2 SUPPLEMENTAL OXYGEN 05/09/2013 YAMILETH LAURENT MD Ot V58.65 LONG-TERM(CURRENT)USE OF STEROIDS 05/09/2013 YAMILETH LAURENT MD Ot V85.42 BODY MASS INDEX 45.0-49.9, ADULT 05/11/2013 626.4 irre gular length of menstrual periods 05/11/2013 626.4 irre gular length of menstrual periods 05/11/2013 626.4 irre gular length of menstrual periods 05/11/2013 626.4 irre gular length of menstrual periods 05/11/2013 JESSE LOPEZ [...] 626.4 irregular length of menstrual periods 05/11/2013 JUDY DAVIS, SARAH Law 626.4 irregular length of menstrual periods 05/11/2013 [...] irregular length of menstrual periods 05/11/2013 LOPEZ DOJESSE K 626.4 irregular length of menstrual periods 05/11/2013 YAMILETH LAURENT MD 626.4 irregular length of menstrual periods 05/11/2013 NOÉ NETTLES ZENA T 62 6.4 irregular length of menstrual periods 05/11/2013 NOÉ NETTLES ZENA T 62 6.4 irregular length of menstrual periods 05/11/2013 NOÉ NETTLES ZENA T 62 6.4 irregular length of menstrual periods 05/11/2013 NOÉ NETTLES ZENA T 62 6.4 irregular length of menstrual periods 05/11/2013 LOPEZ DO, JESSE K 626.4 irregular length of menstrual periods 05/11/2013 NOÉ NETTLES ZENA T 62 6.4 irregular length of menstrual periods 05/11/2013 NOÉ NETTLES ZENA T 62 6.4 irregular length of menstrual periods 05/11/2013 NOÉ NETTLES ZENA T 62 6.4 irregular length of menstrual periods 05/11/2013 NOÉ NETTLES ZENA T 62 6.4 irregular length of menstrual periods 05/11/2013 NOÉ NETTLES ZENA T 62 6.4 irregular length of menstrual periods 05/11/2013 LOPEZ DOCLEOA K 626.4 irregular length of menstrual periods 05/11/2013 LOPEZ DO, JESSE K 626.4 irregular length of menstrual periods 05/11/2013 NOÉ NETTLES ZENA T 62 6.4 irregular length of menstrual periods 05/11/2013 NOÉ NETTLES ZENA T 62 6.4 irregular length of menstrual periods 05/11/2013 ANASTASIIA DAVIS, YAMILETH 626.4 irregular length of menstrual periods 05/11/2013 NOÉ STEM CUTTER, ZENA T 62 6.4 irregular length of menstrual periods 05/11/2013 NOÉ STEM CUTTER, ZENA T 62 6.4 irregular length of menstrual periods 05/11/2013 NOÉ STEM CUTTER, ZENA T 62 6.4 irregular length of menstrual periods 05/11/2013 NOÉ STEM CUTTER, ZENA T 62 6.4 irregular length of menstrual periods 05/11/2013 NOÉ STEM CUTTER, ZENA T 62 6.4 irregular length of menstrual periods 05/11/2013 NOÉ NETTLES ZENA T 62 6.4 irregular length of menstrual periods 05/11/2013 LOPEZ DO JESSE K 626.4 irregular length of menstrual periods 05/11/2013 NOÉ NETTLES ZENA T 62 6.4 irregular length of menstrual periods 05/11/2013 NOÉ NETTLES ZENA T 62 6.4 irregular length of menstrual periods 05/11/2013 LOPEZ CLEO CASEA K 626.4 irregular length of menstrual periods 05/11/2013 JOHN CASE JESSE K 626.4 irregular length of menstrual periods 05/11/2013 NOÉ NETTLES ZENA T 62 6.4 irregular length of menstrual periods 05/28/2013 JOHN CASE JESSE K Ot 135 SARCOIDOSIS 05/28/2013 JOHN CASE JESSE K Ot 244.9 HYPOTHYROIDISM NOS 05/28/2013 JOHN CASE JESSE K Ot 250.00 DIAB CALIN WO COMPL, TYPE II OR UNSPEC TY 05/28/2013 JOHN CASE JESSE K Ot 272.4 HYPERLIPIDEMIA NEC/NOS 05/28/2013 JOHN CASE JESSE K Ot 276.2 ACIDOSIS 05/28/2013 JOHN CASE JESSE K Ot 278.01 MORBID OBESITY 05/28/2013 JOHN CASE JESSE K Ot 278.03 OBESITY HYPOVENTILATION SYNDROME 05/28/2013 JOHN CASE JESSE K Ot 285.9 ANEMIA NOS 05/28/2013 JOHN CASE JESSE K Ot 305.1 TOBACCO USE DISORDER 05/28/2013 JOHN CASE JESSE K Ot 327.23 OBSTRUCTIVE SLEEP APNEA (ADULT) (PEDIATR 05/28/2013 JOHN CASE JESSE K Ot 401.9 HYPERTENSION NOS 05/28/2013 JOHN CASE JESSE K Ot 416.8 CHR PULMON HEART DIS NEC 05/28/2013 JOHN CASE JESSE K Ot 428.0 CONGESTIVE HEART FAILURE NOS 05/28/2013 JESSE LOPEZ DO Ot 478.33 VOCAL PARAL BILAT PART 05/28/2013 JESSE LOPEZ DO Ot 496 CHR AIRWAY OBSTRUCT NEC 05/28/2013 JESSE LOPEZ DO Ot 518.81 ACUTE RESPIRATORY FAILURE 05/28/2013 EJSSE LOPEZ DO Ot 571.8 CHRONIC LIVER DIS [...] DO Ot V58.65 LONG-TERM(CURRENT)USE OF STEROIDS 05/28/2013 JESSE LOPEZ DO Ot V85.42 BODY MASS INDEX 45.0-49.9, ADULT 06/11/2013 CARLYLE STEM CUTTER, ABHISHEK R 786.2 COUGH 06/11/2013 JUDY DAVIS, SARAH Law 786.2 COUGH 06/11/2013 JUDY DAVIS, SARAH Law 786.2 COUGH 06/11/2013 JUDY DAVIS, SARAH Law 786.2 COUGH 06/11/2013 JUDY DAVIS, SARAH Law 786.2 COUGH 06/11/2013 JUDY DAVIS, SARAH Law 786.2 COUGH 06/11/2013 ANASTASIIA DAVIS, YAMILETH 786.2 COUGH 06/11/2013 ANASTASIIA DAVIS, YAMILETH 786.2 COUGH 06/11/2013 JESSE LOPEZ DO 786.2 COUGH 06/11/2013 JESSE LOPEZ DO 786.2 COUGH 06/11/2013 LOPEZ DO, JESSE K 786.2 COUGH 06/11/2013 LOPEZ DO, JESSE K 786.2 COUGH 06/11/2013 YAMILETH LAURENT MD 786.2 COUGH 06/11/2013 YAMILETH LAURENT MD 786.2 COUGH 06/11/2013 LOPEZ DO, JESSE K 786.2 COUGH 06/11/2013 YAMILETH LAURENT MD 786.2 COUGH 06/11/2013 ZENA UMANZOR APRN T 78 6.2 COUGH 06/11/2013 NOÉ NETTLES, ZENA T 78 6.2 COUGH 06/11/2013 NOÉ NTETLES, ZENA T 78 6.2 COUGH 06/11/2013 NOÉ NETTLES, ZENA T 78 6.2 COUGH 06/11/2013 LOPEZ DO, JESSE K 786.2 COUGH 06/11/2013 ZENA UMANZOR APRN T 78 6.2 COUGH 06/11/2013 ZENA UMANZOR APRN T 78 6.2 COUGH 06/11/2013 ZENA UMANZOR APRN T 78 6.2 COUGH 06/11/2013 ZENA UMANZOR APRN T 78 6.2 COUGH 06/11/2013 ZENA UMANZOR APRN T 78 6.2 COUGH 06/11/2013 LOPEZ DO, JESSE K 786.2 COUGH 06/11/2013 LOPEZ DO, JESSE K 786.2 COUGH 06/11/2013 ZENA UMANZOR APRN T 78 6.2 COUGH 06/11/2013 ZENA UMANZOR APRN T 78 6.2 COUGH 06/11/2013 YAMILETH LAURENT MD 786.2 COUGH 06/11/2013 ZENA UMANZOR APRN T 78 6.2 COUGH 06/11/2013 ZENA UMANZOR APRN T 78 6.2 COUGH 06/11/2013 ZENA UMANZOR APRN T 78 6.2 COUGH 06/11/2013 NOÉ NETTLES ZENA T 78 6.2 COUGH 06/11/2013 NOÉ NETTLES, ZENA T 78 6.2 COUGH 06/11/2013 ZENA UMANZOR APRN T 78 6.2 COUGH 06/11/2013 LOPEZ DO, JESES K 786.2 COUGH 06/11/2013 NOÉ NETTLES ZENA T 78 6.2 COUGH 06/11/2013 ZENA UMANZOR APRN T 78 6.2 COUGH 06/11/2013 LOPEZ DO, JESSE K 786.2 COUGH 06/11/2013 LOPEZ DO, JESSE K 786.2 COUGH 06/11/2013 ZENA UMANZOR APRN T 78 6.2 COUGH 07/06/2013 SARAH KIM MD 786.1 Stridor 07/06/2013 SARAH KIM MD V03.82 PPV23 (PNEUMOVAX) DX 07/06/2013 SARAH KIM MD 786.1 Stridor 07/06/2013 JUDY DAVIS, SARAH Law V03.82 PPV23 (PNEUMOVAX) DX 07/06/2013 SARAH KIM MD 786.1 Stridor 07/06/2013 SARAH KIM MD V03.82 PPV23 (PNEUMOVAX) DX 07/06/2013 SARAH KIM MD 786.1 Stridor 07/06/2013 SARAH KIM MD V03.82 PPV23 (PNEUMOVAX) DX 07/06/2013 YAMILETH LAURENT MD 786.1 Stridor 07/06/2013 YAMILETH LAURENT MD V03.8 2 PPV23 (PNEUMOVAX) DX 07/06/2013 YAMILETH LAURENT MD 786.1 Stridor 07/06/2013 YAMILETH LAURENT MD V03.8 2 PPV23 (PNEUMOVAX) DX 07/06/2013 LOPEZ DO, JESSE [...] MD 786.1 STRIDOR 07/06/2013 YAMILETH LAURENT MD V03.8 2 PPV23 (PNEUMOVAX) DX 07/06/2013 YAMILETH LAURENT MD 786.1 STRIDOR 07/06/2013 YAMILETH LAURENT MD V03.8 2 PPV23 (PNEUMOVAX) DX 07/06/2013 LOPEZ DO, JESSE K 786.1 STRIDOR 07/06/2013 LOPEZ DO, JESSE K V03.82 PPV23 (PNEUMOVAX) DX 07/06/2013 YAMILETH LAURENT MD 786.1 STRIDOR 07/06/2013 YAMILETH LAURENT MD V03.8 2 PPV23 (PNEUMOVAX) DX 07/06/2013 ZENA UMANZOR APRN T 78 6.1 STRIDOR 07/06/2013 ZENA UMANZOR APRN V03.82 PPV23 (PNEUMOVAX) DX 07/06/2013 ZENA UMANZOR APRN 78 6.1 STRIDOR 07/06/2013 ZENA UMANZOR APRN V03.82 PPV23 (PNEUMOVAX) DX 07/06/2013 ZENA UMANZOR APRN 78 6.1 STRIDOR 07/06/2013 ZENA UMANZOR APRN V03.82 PPV23 (PNEUMOVAX) DX 07/06/2013 ZENA UMANZOR APRN 78 6.1 STRIDOR 07/06/2013 ZENA UMANZOR APRN V03.82 PPV23 (PNEUMOVAX) DX 07/06/2013 JOHN CASE, JESSE K 786.1 STRIDOR 07/06/2013 LOPEZ DO, JESSE K V03.82 PPV23 (PNEUMOVAX) DX 07/06/2013 ZENA UMANZOR APRN 78 6.1 STRIDOR 07/06/2013 ZENA UMANZOR APRN V03.82 PPV23 (PNEUMOVAX) DX 07/06/2013 ZENA UMANZOR APRN 78 6.1 STRIDOR 07/06/2013 ZENA UMANZOR APRN V03.82 PPV23 (PNEUMOVAX) DX 07/06/2013 ZENA UMANZOR APRN 78 6.1 STRIDOR 07/06/2013 ZENA UMANZOR APRN V03.82 PPV23 (PNEUMOVAX) DX 07/06/2013 ZENA UMANZOR APRN 78 6.1 STRIDOR 07/06/2013 ZENA UMANZOR APRN V03.82 PPV23 (PNEUMOVAX) DX 07/06/2013 ZENA UMANZOR APRN 78 6.1 STRIDOR 07/06/2013 ZENA UMANZOR APRN V03.82 PPV23 (PNEUMOVAX) DX 07/06/2013 LOPEZ DO, JESSE K 786.1 STRIDOR 07/06/2013 LOPEZ DO, JESSE K V03.82 PPV23 (PNEUMOVAX) DX 07/06/2013 LOPEZ DO, JESSE K 786.1 STRIDOR 07/06/2013 LOPEZ DO, JESSE K V03.82 PPV23 (PNEUMOVAX) DX 07/06/2013 ZENA UMANZOR APRN 78 6.1 STRIDOR 07/06/2013 ZENA UMANZOR APRN V03.82 PPV23 (PNEUMOVAX) DX 07/06/2013 ZENA UMANZOR APRN 78 6.1 STRIDOR 07/06/2013 ZENA UMANZOR APRN V03.82 PPV23 (PNEUMOVAX) DX 07/06/2013 YAMILETH LAURENT MD 786.1 STRIDOR 07/06/2013 YAMILETH LAURENT MD V03.8 2 PPV23 (PNEUMOVAX) DX 07/06/2013 ZENA UMANZOR APRN 78 6.1 STRIDOR 07/06/2013 ZENA UMANZOR APRN V03.82 PPV23 (PNEUMOVAX) DX 07/06/2013 ZENA UMANZOR APRN 78 6.1 STRIDOR 07/06/2013 ZENA UMANZOR APRN V03.82 PPV23 (PNEUMOVAX) DX 07/06/2013 ZENA UMANZOR APRN T 78 6.1 STRIDOR 07/06/2013 ZENA UMANZOR APRN V03.82 PPV23 (PNEUMOVAX) DX 07/06/2013 ZENA UMANZOR APRN T 78 6.1 STRIDOR 07/06/2013 ZENA UMANZOR APRN V03.82 PPV23 (PNEUMOVAX) DX 07/06/2013 ZENA UMANZOR APRN T 78 6.1 STRIDOR 07/06/2013 ZENA UMANZOR APRN V03.82 PPV23 (PNEUMOVAX) DX 07/06/2013 ZENA UMANZOR APRN 78 6.1 STRIDOR 07/06/2013 ZENA UMANZOR APRN V03.82 PPV23 (PNEUMOVAX) DX 07/06/2013 LOPEZ DO, JESSE K 786.1 STRIDOR 07/06/2013 LOPEZ DO, JESSE K V03.82 PPV23 (PNEUMOVAX) DX 07/06/2013 ZENA UMANZOR APRN 78 6.1 STRIDOR 07/06/2013 ZENA UMANZOR APRN T V03.82 PPV23 (PNEUMOVAX) DX 07/06/2013 ZENA UMANZOR APRN T 78 6.1 STRIDOR 07/06/2013 ZENA UMANZOR APRN V03.82 PPV23 (PNEUMOVAX) DX 07/06/2013 LOPEZ DO, JESSE K 786.1 STRIDOR 07/06/2013 LOPEZ DO, JESSE K V03.82 PPV23 (PNEUMOVAX) DX 07/06/2013 LOPEZ DO, JESSE K 786.1 STRIDOR 07/06/2013 LOPEZ DO, JESSE K V03.82 PPV23 (PNEUMOVAX) DX 07/06/2013 ZENA UMANZOR APRN 78 6.1 STRIDOR 07/06/2013 ZENA UMANZOR APRN V03.82 PPV23 (PNEUMOVAX) DX 07/13/2013 ISABELA CASESUNIA Natalie Ot 428.0 CONGESTIVE HEART FAILURE NOS 07/13/2013 ISABELA , CHRISTY K Ot 786.05 SHORTNESS OF BREATH 07/16/2013 SARAY JOHNSNO MD Ot 491.21 OBSTR CHRONIC BRONCHITIS, W (ACUTE) EXAC 07/16/2013 SARAY JOHNSON MD Ot 786.05 SHORTNESS OF BREATH 07/16/2013 SARAY JOHNSON MD Ot 799.02 HYPOXEMIA 07/28/2013 SARAH KIM MD 729.5 PAIN IN LIMB 07/28/2013 SARAH KIM MD 729.5 PAIN IN LIMB 07/28/2013 SARAH KIM MD 729.5 PAIN IN LIMB 07/28/2013 YAMILETH LAURENT MD9.5 PAIN IN LIMB 07/28/2013 YAMILETH LAURENT MD9.5 PAIN IN LIMB 07/28/2013 JOHN DOCLEOA K 729.5 PAIN IN LIMB 07/28/2013 LOPEZ DO, JESSE K 729.5 PAIN IN LIMB 07/28/2013 LOPEZ DO, JESSE K 729.5 PAIN IN LIMB 07/28/2013 LOPEZ DO, JESSE K 729.5 PAIN IN LIMB 07/28/2013 YAMILETH LAURENT MD.5 PAIN IN LIMB 07/28/2013 YAMILETH LAURENT MD.5 PAIN IN LIMB 07/28/2013 LOPEZ DO, JESSE K 729.5 PAIN IN LIMB 07/28/2013 YAMILETH LAURENT MD 729.5 PAIN IN LIMB 07/28/2013 NOÉ STEM CUTTER, ZENA T 72 9.5 PAIN IN LIMB 07/28/2013 ONÉ STEM CUTTER, ZENA T 72 9.5 PAIN IN LIMB 07/28/2013 NOÉ STEM CUTTER, ZENA T 72 9.5 PAIN IN LIMB 07/28/2013 NOÉ STEM CUTTER, ZENA T 72 9.5 PAIN IN LIMB 07/28/2013 LOPEZ DO, JESSE K 729.5 PAIN IN LIMB 07/28/2013 NOÉ STEM CUTTER, ZENA T 72 9.5 PAIN IN LIMB 07/28/2013 NOÉ STEM CUTTER, ZENA T 72 9.5 PAIN IN LIMB 07/28/2013 NOÉ STEM CUTTER, ZENA T 72 9.5 PAIN IN LIMB 07/28/2013 NOÉ STEM CUTTER, ZENA T 72 9.5 PAIN IN LIMB 07/28/2013 NOÉ STEM CUTTER, ZENA T 72 9.5 PAIN IN LIMB 07/28/2013 LOPEZ DO, JESSE K 729.5 PAIN IN LIMB 07/28/2013 LOPEZ DO, JESSE K 729.5 PAIN IN LIMB 07/28/2013 NOÉ STEM CUTTER, ZENA T 72 9.5 PAIN IN LIMB 07/28/2013 NOÉ STEM CUTTER, ZENA T 72 9.5 PAIN IN LIMB 07/28/2013 YAMILETH LAURENT MD 729.5 PAIN IN LIMB 07/28/2013 NOÉ STEM CUTTER, ZENA T 72 9.5 PAIN IN LIMB 07/28/2013 NOÉ STEM CUTTER, ZENA T 72 9.5 PAIN IN LIMB 07/28/2013 NOÉ STEM CUTTER, ZENA T 72 9.5 PAIN IN LIMB 07/28/2013 NOÉ STEM CUTTER, ZENA T 72 9.5 PAIN IN LIMB 07/28/2013 NOÉ STEM CUTTER, ZENA T 72 9.5 PAIN IN LIMB 07/28/2013 NOÉ STEM CUTTER, ZENA T 72 9.5 PAIN IN LIMB 07/28/2013 LOPEZ DO, JESSE K 729.5 PAIN IN LIMB 07/28/2013 NOÉ STEM CUTTER, ZENA T 72 9.5 PAIN IN LIMB 07/28/2013 NOÉ STEM CUTTER, ZENA T 72 9.5 PAIN IN LIMB 07/28/2013 LOPEZ DO, JESSE K 729.5 PAIN IN LIMB 07/28/2013 LOPEZ DO, JESSE K 729.5 PAIN IN LIMB 07/28/2013 ZENA UMANZOR APRN 72 9.5 PAIN IN LIMB 08/05/2013 SARAH KIM MD 451.19 PHLEBITIS OF POPLITEAL VEIN 08/05/2013 SARAH KIM MD 451.19 PHLEBITIS OF POPLITEAL VEIN 08/05/2013 YAMILETH LAURENT MD 451.1 9 PHLEBITIS OF POPLITEAL VEIN 08/05/2013 YAMILETH LAURENT MD 451.1 9 PHLEBITIS OF POPLITEAL VEIN 08/05/2013 LOPEZ DO JESSE K 451.19 PHLEBITIS OF POPLITEAL VEIN 08/05/2013 LOPEZ DO JESSE K 451.19 PHLEBITIS OF POPLITEAL VEIN 08/05/2013 LOPEZ DO JESSE K 451.19 PHLEBITIS OF POPLITEAL VEIN 08/05/2013 LOPEZ DO JESSE K 451.19 PHLEBITIS OF POPLITEAL VEIN 08/05/2013 YAMILETH LAURENT MD 451.1 9 PHLEBITIS OF POPLITEAL VEIN 08/05/2013 YAMILETH LAURENT MD 451.1 9 PHLEBITIS OF POPLITEAL VEIN 08/05/2013 JOHN CASE JESSE K 451.19 PHLEBITIS OF POPLITEAL VEIN 08/05/2013 YAMILETH LAURENT MD 451.1 9 PHLEBITIS OF POPLITEAL VEIN 08/05/2013 ZENA UMANZOR APRN 451.19 PHLEBITIS OF POPLITEAL VEIN 08/05/2013 ZENA UMANZOR APRN 451.19 PHLEBITIS OF POPLITEAL VEIN 08/05/2013 ZENA UMANZOR APRN 451.19 PHLEBITIS OF POPLITEAL VEIN 08/05/2013 ZENA UMANZOR APRN 451.19 PHLEBITIS OF POPLITEAL VEIN 08/05/2013 JESSE LOPEZ DO K 451.19 PHLEBITIS OF POPLITEAL VEIN 08/05/2013 ZENA UMANZOR APRN 451.19 PHLEBITIS OF POPLITEAL VEIN 08/05/2013 ZENA UMANZOR APRN 451.19 PHLEBITIS OF POPLITEAL VEIN 08/05/2013 ZENA UMANZOR APRN 451.19 PHLEBITIS OF POPLITEAL VEIN 08/05/2013 ZENA UMANZOR APRN 451.19 PHLEBITIS OF POPLITEAL VEIN 08/05/2013 ZENA UMANZOR APRN 451.19 PHLEBITIS OF POPLITEAL VEIN 08/05/2013 LOPEZ DO JESSE K 451.19 PHLEBITIS OF POPLITEAL VEIN 08/05/2013 LOPEZ DO, JESSE K 451.19 PHLEBITIS OF POPLITEAL VEIN 08/05/2013 ZENA UMANZOR APRN 451.19 PHLEBITIS OF POPLITEAL VEIN 08/05/2013 ZENA UAMNZOR APRN 451.19 PHLEBITIS OF POPLITEAL VEIN 08/05/2013 YAMILETH LAURENT MD 451.1 9 PHLEBITIS OF POPLITEAL VEIN 08/05/2013 ZENA UMANZOR APRN 451.19 PHLEBITIS OF POPLITEAL VEIN 08/05/2013 ZENA UMANZOR APRN 451.19 PHLEBITIS OF POPLITEAL VEIN 08/05/2013 ZENA UMANZOR APRN 451.19 PHLEBITIS OF POPLITEAL VEIN 08/05/2013 ZENA UMANZOR APRN 451.19 PHLEBITIS OF POPLITEAL VEIN 08/05/2013 ZENA UMANZOR APRN 451.19 PHLEBITIS OF POPLITEAL VEIN 08/05/2013 ZENA UMANZOR APRN 451.19 PHLEBITIS OF POPLITEAL VEIN 08/05/2013 JOHN DO, JESSE K 451.19 PHLEBITIS OF POPLITEAL [...] HEART DISEASE UNSPECIFIED 09/07/2013 SARAH KIM MD 49Liz CHRONIC AIRWAY OBSTRUCTION NOT ELSEWHERE [...] ELSEWHERE CLASSIFIED 09/07/2013 ZENA UMANZOR APRN T 41 6.9 CHRONIC PULMONARY HEART DISEASE UNSPECIFIED 09/07/2013 ZENA UMANZOR APRN T 49 6 CHRONIC AIRWAY OBSTRUCTION NOT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 08/12/2014 ERICA MCPHERSON APRN Ot 786.09 RESPIRATORY ABNORM NEC 08/12/2014 ERICA MCPHERSON APRN Ot V58.69 OT MED,LT,CURRENT USE 08/19/2014 NAKIA DAVIS, DILCIA Shrestha Ot 276.8 HYPOPOTASSEMIA 08/19/2014 NAKIA DAVIS, DILCIA Shrestha Ot 787.01 NAUSEA WITH VOMITING 08/19/2014 DILCIA YEE MD Ot 787.03 VOMITING ALONE 08/19/2014 DILCIA YEE MD Ot 789.06 ABDOMINAL PAIN, EPIGASTRIC 08/26/2014 DILCIA YEE MD Ot 782.3 EDEMA 08/26/2014 DILCIA YEE MD Ot 786.05 SHORTNESS OF BREATH 09/21/2014 ZENA UMANZOR APRN 46 6.0 BRONCHITIS, ACUTE 09/21/2014 CLEO LOPEZ DOA K 466.0 BRONCHITIS, ACUTE 09/21/2014 CLEO LOPEZ DOA K 466.0 BRONCHITIS, ACUTE 09/21/2014 ZENA UMANZOR APRN 46 6.0 BRONCHITIS, ACUTE 09/28/2014 ZENA UMANZOR STOCK CHASER Ot 285.9 09/29/2014 NADJA BARTHOLOMEW Ot 491.21 OBSTR CHRONIC BRONCHITIS, W (ACUTE) EXAC 09/29/2014 NADJA BARTHOLOMEW Ot 599.0 URIN TRACT INFECTION NOS 09/29/2014 NADJA BARTHOLOMEW Ot 782.3 EDEMA 09/29/2014 NADJA BARTHOLOMEW Ot 786.05 SHORTNESS OF BREATH 09/29/2014 NADJA BARTHOLOMEW Ot 793.19 OTHER NONSPECIFIC ABNORMAL FINDING OF SARANYA 09/29/2014 NADJA BARTHOLOMEW Ot V58.69 OTH MED,LT,CURRENT USE 10/05/2014 JOHN CASE JESSE K 786.6 LUNG MASS 10/05/2014 ZENA UMANZOR APRN 78 6.6 LUNG MASS 10/09/2014 YAMILETH LAURENT MD Ot 038 .9 SEPTICEMIA NOS 10/09/2014 YAMILETH LAURENT MD Ot 135 SARCOIDOSIS 10/09/2014 YAMILETH LAURENT MD Ot 244 .9 HYPOTHYROIDISM NOS 10/09/2014 YAMILETH LAURENT MD Ot 250.00 DIAB CALIN WO COMPL, TYPE II OR UNSPEC TY 10/09/2014 YAMILETH LAURENT MD Ot 272 .4 HYPERLIPIDEMIA NEC/NOS 10/09/2014 YAMILETH LAURENT MD Ot 275 .2 DIS MAGNESIUM METABOLISM 10/09/2014 YAMILETH LAURENT MD Ot 276 .4 MIXED ACID-BASE BAL DIS 10/09/2014 YAMILETH LAURENT MD Ot 278.03 OBESITY HYPOVENTILATION SYNDROME 10/09/2014 YAMILETH LAURENT MD Ot 305 .1 TOBACCO USE DISORDER 10/09/2014 YAMILETH LAURENT MD Ot 348.31 METABOLIC ENCEPHALOPATHY 10/09/2014 YAMILETH LAURENT MD Ot 496 CHR AIRWAY OBSTRUCT NEC 10/09/2014 YAMILETH LAURENT MD Ot 507 .0 FOOD/VOMIT PNEUMONITIS 10/09/2014 YAMILETH LAURENT MD Ot 518.84 ACUTE AND CHRONIC RESPIRATORY FAILURE 10/09/2014 YAMILETH LAURENT MD Ot 682 .6 CELLULITIS OF LEG 10/09/2014 YAMILETH LAURENT MD Ot 782 .3 EDEMA 10/09/2014 YAMILETH LAURENT MD Ot 995.92 SEVERE SEPSIS 10/09/2014 YAMILETH LAURENT MD Ot V15.81 HX OF PAST NONCOMPLIANCE 10/09/2014 YAMILETH LAURENT MD Ot V58.65 LONG-TERM(CURRENT)USE OF STEROIDS 10/09/2014 YAMILETH LAURENT MD Ot V85.43 BODY MASS INDEX 50.0-59.9, ADULT 10/17/2014 ZENA UMANZOR Ot 285.9 11/04/2014 ZENA UMANZOR APRN 250.00 [...] SARAH Law Ot 276.1 11/18/2014 ZENA UMANZOR STOCK CHASER Ot 625.9 11/18/2014 JEANETH DAVIS FACC, [facility] CCDS Ot V58.69 11/18/2014 SARAH KIM MD Ot 729.5 11/18/2014 JUDY DAVIS, SARAH Law Ot 729.81 11/18/2014 BAIMA, BEV L STOCK CHASER Ot 276.8 11/18/2014 BAIMA, BEV L STOCK CHASER Ot 276.8 11/18/2014 BAIMA, BEV L STOCK CHASER Ot V58.69 11/18/2014 ANASTASIIA DAVIS, YAMILETH Cruz Ot 429 .3 11/18/2014 ANASTASIIA DAVIS, YAMILETH Cruz Ot 496 11/18/2014 JEANETH DAVIS FACC, ALI FACP CCDS Ot 416.8 11/18/2014 JEANETH DAVIS FACC, ALI FACP CCDS Ot 427.89 11/18/2014 JEANETH DAVIS FACC, ALI FACP CCDS Ot 496 11/18/2014 JEANETH DAVIS FACC, ALI FACP CCDS Ot 785.6 11/18/2014 JEANETH DAVIS FACC, ALI FACP CCDS Ot 786.05 11/18/2014 JEANETH DAVIS FACC, ALI FACP CCDS Ot 786.50 11/18/2014 BAIMA, BEV L STOCK CHASER Ot 278.01 11/18/2014 BAIMA, BEV L STOCK CHASER Ot 278.03 11/18/2014 BAIMA, BEV L STOCK CHASER Ot 305.1 11/18/2014 BAIMA, BEV L STOCK CHASER Ot 397.0 11/18/2014 BAIMA, BEV L STOCK CHASER Ot 416.8 11/18/2014 BAIMA, BEV L STOCK CHASER Ot 424.0 11/18/2014 BAIMA, BEV L STOCK CHASER Ot 429.9 11/18/2014 BAIMA, BEV L STOCK CHASER Ot 4 96 11/18/2014 BAIMA, BEV L STOCK CHASER Ot 786.09 11/18/2014 BAIMA, BEV L STOCK CHASER Ot 276.8 11/18/2014 BAIMA, BEV L STOCK CHASER Ot 276.8 11/18/2014 SASHA DAVIS, XIAO Mays Ot 519.19 11/18/2014 SASHA DAVIS, XIAO A Ot 786 .6 11/18/2014 ZENA UMANZOR STOCK CHASER Ot 724.4 11/18/2014 ZENA UMANZOR STOCK CHASER Ot 285.9 11/18/2014 Ot 518.89 11/18/2014 Ot 793.11 12/19/2014 IVAN DAVIS, TALAL A Ot 285.9 12/19/2014 IVAN DAVIS, LADNON A Ot 403.90 12/19/2014 IVAN DAVIS, LANDON A Ot 585.3 12/20/2014 IVAN DAVIS, LANDON A Ot 285.9 12/20/2014 IVAN DAVIS, LANDON A Ot 403.90 12/20/2014 IVAN DAVIS, LANDON [...] SARAH Law Ot 276.1 12/29/2014 ZENA UMANZOR STOCK CHASER Ot 625.9 12/29/2014 JEANETH DAVIS FAC, ALI FACP CCDS Ot V58.69 12/29/2014 JUDY DAVIS, SARAH Law Ot 729.5 12/29/2014 JUDY DAVIS, SARAH Law Ot 729.81 12/29/2014 BAIMA, BEV L STOCK CHASER Ot 276.8 12/29/2014 BAIMA, BEV L STOCK CHASER Ot 276.8 12/29/2014 BAIMA, BEV L STOCK CHASER Ot V58.69 12/29/2014 ANASTASIIA DAVIS, YAMILETH Cruz Ot 429 .3 12/29/2014 ANASTASIIA DAVIS, YAMILETH Cruz Ot 496 12/29/2014 JEANETH DAVIS FAC, ALI FACP CCDS Ot 416.8 12/29/2014 JEANETH DAVIS FAC, ALI FACP CCDS Ot 427.89 12/29/2014 JEANETH DAVIS FAC, ALI FACP CCDS Ot 496 12/29/2014 JEANETH DAVIS FACC, ALI FACP CCDS Ot 785.6 12/29/2014 JEANETH DAVIS FACC, ALI FACP CCDS Ot 786.05 12/29/2014 JEANETH DAVIS FAC, ALI FACP CCDS Ot 786.50 12/29/2014 BAIMA, BEV L STOCK CHASER Ot 278.01 12/29/2014 BAIMA, BEV L STOCK CHASER Ot 278.03 12/29/2014 BAIMA, BEV L STOCK CHASER Ot 305.1 12/29/2014 BAIMA, BEV L STOCK CHASER Ot 397.0 12/29/2014 BAIMA, BEV L STOCK CHASER Ot 416.8 12/29/2014 BAIMA, BEV L STOCK CHASER Ot 424.0 12/29/2014 BAIMA, BEV L STOCK CHASER Ot 429.9 12/29/2014 BAIMA, BEV L STOCK CHASER Ot 4 96 12/29/2014 DARIUSBEV POE L STOCK CHASER Ot 786.09 12/29/2014 BAIBEV POE L STOCK CHASER Ot 276.8 12/29/2014 BAIMA BEV L STOCK CHASER Ot 276.8 12/29/2014 SASHA DAVIS, XIAO A Ot 519.19 12/29/2014 SASHA DAVIS, XIAO A Ot 786 .6 12/29/2014 NOÉZENA STOCK CHASER Ot 724.4 12/29/2014 ZENA UMANZOR Henrietta STOCK CHASER Ot 285.9 12/29/2014 Ot 518.89 12/29/2014 Ot 793.11 12/29/2014 IVAN DAVIS, TALAL A Ot 285.9 12/29/2014 IVAN DAVIS, TALAL A Ot 403.90 12/29/2014 IVAN DAVIS, TALAL A Ot 585.3 12/29/2014 Ot 585.3 12/29/2014 NAKIA DAVIS, DILCIA T Ot 724.2 LUMBAGO 12/29/2014 Ot 585.3 01/02/2015 Ot 518.89 01/02/2015 Ot 793.11 01/13/2015 Ot 585.3 02/16/2015 IVAN DAVIS, TALAL A Ot 285.9 ANEMIA NOS 02/16/2015 IVAN DAVIS, CRISTIAL A Ot 403.90 HYPTNSV CHR 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, UNSPEC, W CHR KD ST 02/16/2015 IVAN DAVIS, TALAL A Ot 585.3 CHRONIC KIDNEY DISEASE, STAGE III (MODER 03/29/2015 CHARLES TEMPLETON STEM CUTTER Ot 135 03/29/2015 CHARLES TEMPLETON STEM CUTTER Ot 305.1 03/29/2015 CHARLES TEMPLETON STEM CUTTER Ot 327.23 03/29/2015 CHARLES TEMPLETON STEM CUTTER Ot 416.8 03/29/2015 CHARLES TEMPLETON STEM CUTTER Ot 493.90 03/29/2015 CHARLES TEMPLETON STEM CUTTER Ot 786.05 03/29/2015 CHARLES TEMPLETON STEM CUTTER Ot 786.09 04/04/2015 CHARLES TEMPLETON STEM CUTTER Ot 135 04/04/2015 CHARLES TEMPLETON STEM CUTTER Ot 305.1 04/04/2015 CHARLES TEMPLETON STEM CUTTER Ot 327.23 04/04/2015 YOKASTA CHARLES Gomez STEM CUTTER Ot 416.8 04/04/2015 CHARLES TEMPLETON STEM CUTTER Ot 493.90 04/04/2015 CHARLES TEMPLETON STEM CUTTER Ot 786.05 04/04/2015 CHARLES TEMPLETON E STEM CUTTER Ot 786.09 05/09/2015 TIPPING DO, ARNAV C Ot 244 .9 05/09/2015 TIPPING DO, ARNAV C Ot 250.00 05/09/2015 TIPPING DO, ARNAV C Ot 285 .9 05/09/2015 TIPPING DO, ARNAV C Ot 403.90 05/09/2015 TIPPING DO, ARNAV C Ot 585 .9 05/09/2015 TIPPING DO, ARNAV C Ot 799.02 05/16/2015 TIPPING DO, ARNAV C Ot 244 .9 05/16/2015 TIPPING DO, ARNAV C Ot 250.00 05/16/2015 TIPPING DO, ARNAV C Ot 285 .9 05/16/2015 TIPPING DO, ARNAV C Ot 403.90 05/16/2015 TIPPING DO, ARNAV C Ot 585 .9 05/16/2015 TIPPING DO, ARNAV C Ot 799.02 05/30/2015 ERICA MCPHERSON APRN Ot 787.01 NAUSEA WITH VOMITING 05/30/2015 ERICA MCPHERSON STEM CUTTER Ot 787.03 VOMITING ALONE 05/30/2015 ERICA MCPHERSON STEM CUTTER Ot 787.91 DIARRHEA 06/14/2015 LANDON LOVE MD A Ot 250.00 06/14/2015 LANDON LOVE MD A Ot 428.32 06/14/2015 IVAN DAVIS, LANDON A Ot 496 06/21/2015 ERICA MCPHERSON STEM CUTTER Ot 787.01 06/21/2015 ERICA MCPHERSON STEM CUTTER Ot 787.03 06/21/2015 ERICA MCPHERSON STEM CUTTER Ot 787.91 06/27/2015 IVAN DAVIS, LANDON A Ot 250.00 06/27/2015 LANDON LOVE MD A Ot 428.32 06/27/2015 IVAN DAVIS, LANDON A Ot 496 06/28/2015 ERICA MCPHERSON STEM CUTTER Ot 787.01 06/28/2015 ERICA MCPHERSON STEM CUTTER Ot 787.03 06/28/2015 ERICA MCPHERSON STEM CUTTER Ot 787.91 07/24/2015 Ot E11.9 07/24/2015 Ot [...] 790.5 11/28/2015 Ot 787.20 11/28/2015 JUDY DAVIS, SAARH Law Ot 276.1 11/28/2015 ZENA UMANZOR STOCK CHASER Ot 625.9 11/28/2015 JEANETH DAVIS FAC, ALI FACP CCDS Ot V58.69 11/28/2015 JUDY DAVIS, SARAH Law Ot 729.5 11/28/2015 JUDY DAVIS, SARAH Law Ot 729.81 11/28/2015 BAIMA, BEV L STOCK CHASER Ot 276.8 11/28/2015 BAIMA, BEV L STOCK CHASER Ot 276.8 11/28/2015 BAIMA, BEV L STOCK CHASER Ot V58.69 11/28/2015 ANASTASIIA DAVIS, YAMILETH Cruz Ot 429 .3 11/28/2015 ANASTASIIA DAVIS, YAMILETH Cruz Ot 496 11/28/2015 JEANETH DAVIS FAC, ALI FACP CCDS Ot 416.8 11/28/2015 JEANETH DAVIS [facility], ALI FACP CCDS Ot 427.89 11/28/2015 JEANETH DAVIS [facility], ALI FACP CCDS Ot 496 11/28/2015 JEANETH DAVIS [facility], ALI FACP CCDS Ot 785.6 11/28/2015 JEANETH DAVIS [facility], ALI FACP CCDS Ot 786.05 11/28/2015 JEANETH DAVIS [facility], ALI FACP CCDS Ot 786.50 11/28/2015 BAIMA, BEV L STOCK CHASER Ot 278.01 11/28/2015 BAIMA, BEV L STOCK CHASER Ot 278.03 11/28/2015 BAIMA, BEV L STOCK CHASER Ot 305.1 11/28/2015 BAIMA, BEV L STOCK CHASER Ot 397.0 11/28/2015 BAIMA, BEV L STOCK CHASER Ot 416.8 11/28/2015 BAIMA, BEV L STOCK CHASER Ot 424.0 11/28/2015 BAIMA, BEV L STOCK CHASER Ot 429.9 11/28/2015 BEV BAIN STOCK CHASER Ot 4 96 11/28/2015 BAIBEV POE L STOCK CHASER Ot 786.09 11/28/2015 BAIBEV POE L STOCK CHASER Ot 276.8 11/28/2015 BAIBEV POE L STOCK CHASER Ot 276.8 11/28/2015 SAHSA DAVIS, XIAO A Ot 519.19 11/28/2015 SASHA DAVIS, XIAO A Ot 786 .6 11/28/2015 ZENA UMANZOR STOCK CHASER Ot 724.4 11/28/2015 ZENA UMANZOR STOCK CHASER Ot 285.9 11/28/2015 Ot 518.89 11/28/2015 Ot 793.11 11/28/2015 Ot 585.3 11/28/2015 IVAN DAVIS, CRISTIAL A Ot 285.9 11/28/2015 IVAN DAVIS, CRISTIAL A Ot 403.90 11/28/2015 IVAN DAVIS, CRISTIAL A Ot 585.3 11/28/2015 CHARLES TEMPLETON STEM CUTTER Ot 135 11/28/2015 CHARLES TEMPLETON STEM CUTTER Ot 305.1 11/28/2015 CHARLES TEMPLETON STEM CUTTER Ot 327.23 11/28/2015 CHARLES TEMPLETON STEM CUTTER Ot 416.8 11/28/2015 CHARLES TEMPLETON STEM CUTTER Ot 493.90 11/28/2015 CHARLES TEMPLETON STEM CUTTER Ot 786.05 11/28/2015 CHARLES TEMPLETON STEM CUTTER Ot 786.09 11/28/2015 TIPPING DO, ARNAV C Ot 244 .9 11/28/2015 TIPPING DO, ARNAV C Ot 250.00 11/28/2015 TIPPING DO, ARNAV C Ot 285 .9 11/28/2015 TIPPING DO, ARNAV C Ot 403.90 11/28/2015 TIPPING DO, ARNAV C Ot 585 .9 11/28/2015 TIPPING DO, ARNAV C Ot 799.02 11/28/2015 IVAN DAVIS, CRISTIAL A Ot 250.00 11/28/2015 IVAN DAVIS, CRISTIAL A Ot 428.32 11/28/2015 IVAN DAVIS, CRISTIAL A Ot 496 11/28/2015 Ot E11.9 11/28/2015 Ot E78.5 11/28/2015 Ot I12.9 11/28/2015 Ot N18.9 11/28/2015 Ot R09.02 12/19/2015 PASCUAL JORGENSEN DO Ot E66. 01 12/19/2015 PASCUAL JORGENSEN DO Ot G47. 33 12/19/2015 PASCUAL JORGENSEN DO Ot J45.909 12/19/2015 PASCUAL JORGENSEN DO Ot R59. 0 01/01/2016 PASCUAL JORGENSEN DO Ot E66. 01 01/01/2016 PASCUAL JORGENSEN DO Ot G47. 33 01/01/2016 PASCUAL JORGENSEN DO Ot J45.909 01/01/2016 PASCUAL JORGENSEN DO Ot R59. 0 01/03/2016 BEV BAIN STOCK CHASER Ot E07.9 01/03/2016 DARIUSBEV POE L STOCK CHASER Ot I07.1 01/03/2016 DARIUSBEV POE L STOCK CHASER Ot R00.2 01/03/2016 DARIUSBVE POE L STOCK CHASER Ot R07.9 01/08/2016 BAIBEV POE L STOCK CHASER Ot E07.9 DISORDER OF THYROID, UNSPECIFIED 01/08/2016 BEV BAIN L STOCK CHASER Ot 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 TRICUSPID INSUFFICIENCY 01/08/2016 DARIUSBEV POE L STOCK CHASER Ot R00.2 PALPITATIONS 01/08/2016 DARIUSBEV OPE L STOCK CHASER Ot R07.9 CHEST PAIN, UNSPECIFIED 01/10/2016 Ot E07.9 DISO RDER OF THYROID, UNSPECIFIED 01/10/2016 Ot I07.1 RHEU MATIC TRICUSPID INSUFFICIENCY 01/10/2016 Ot R00.2 PALP ITATIONS 01/10/2016 Ot R07.9 CHES T PAIN, UNSPECIFIED 01/15/2016 ROBERT ELIZABETH MD Ot R07.9 CHEST PAIN, UNSPECIFIED 01/15/2016 ROBERT ELIZABETH MD Ot R10.13 EPIGASTRIC PAIN 01/15/2016 ROBERT ELIZABETH MD Ot Z01.81 8 ENCOUNTER FOR OTHER PREPROCEDURAL EXAMIN 01/17/2016 ROBERT ELIZABETH MD Ot E11.9 TYPE 2 DIABETES MELLITUS WITHOUT COMPLIC 01/17/2016 ROBERT ELIZABETH MD Ot K21.0 GASTRO-ESOPHAGEAL REFLUX DISEASE WITH ES 01/17/2016 ROBERT ELIZABETH MD Ot K29.70 GASTRITIS, UNSPECIFIED, WITHOUT BLEEDING 01/17/2016 ROBERT ELIZABETH MD, Ot K44.9 DIAPHRAGMATIC HERNIA WITHOUT OBSTRUCTION 01/18/2016 ROBERT ELIZABETH MD Ot E11.9 TYPE 2 DIABETES MELLITUS WITHOUT COMPLIC 01/18/2016 ROBERT ELIZABETH MD Ot K21.0 GASTRO-ESOPHAGEAL REFLUX DISEASE WITH ES 01/18/2016 ROBERT ELIZABETH MD Ot K29.70 GASTRITIS, UNSPECIFIED, WITHOUT BLEEDING 01/18/2016 ROBERT ELIZABETH MD Ot K44.9 DIAPHRAGMATIC HERNIA WITHOUT OBSTRUCTION 01/24/2016 ODELL, BEV L STOCK CHASER Ot E07.9 DISORDER OF THYROID, UNSPECIFIED 01/24/2016 BAIMA, BEV L STOCK CHASER Ot 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 TRICUSPID INSUFFICIENCY 01/24/2016 DARIUSMA BEV L STOCK CHASER Ot R00.2 PALPITATIONS 01/24/2016 BAIMA BEV L STOCK CHASER Ot R07.9 CHEST PAIN, UNSPECIFIED 01/25/2016 BAIMA, BEV L STOCK CHASER Ot E07.9 DISORDER OF THYROID, UNSPECIFIED 01/25/2016 BAIMA, BEV L STOCK CHASER Ot 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 TRICUSPID INSUFFICIENCY 01/25/2016 BAIMA, BEV L STOCK CHASER Ot R00.2 PALPITATIONS 01/25/2016 BAIMA, BEV L STOCK CHASER Ot R07.9 CHEST PAIN, UNSPECIFIED 01/25/2016 Ot E07.9 DISO RDER OF THYROID, UNSPECIFIED 01/25/2016 Ot I07.1 RHEU MATIC TRICUSPID INSUFFICIENCY 01/25/2016 Ot R00.2 PALP ITATIONS 01/25/2016 Ot R07.9 CHES T PAIN, UNSPECIFIED 01/31/2016 BAIMA, BEV L STOCK CHASER Ot E07.9 DISORDER OF THYROID, UNSPECIFIED 01/31/2016 BAIMA, BEV L STOCK CHASER Ot 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 TRICUSPID INSUFFICIENCY 01/31/2016 BAIMA, BEV L STOCK CHASER Ot R00.2 PALPITATIONS 01/31/2016 BAIMA BEV L STOCK CHASER Ot R07.9 CHEST PAIN, UNSPECIFIED 02/14/2016 TIPPING DOARNAV Ot D50 .9 IRON DEFICIENCY ANEMIA, UNSPECIFIED 02/14/2016 TIPPING DOARNAV Ot E11 .9 TYPE 2 DIABETES MELLITUS WITHOUT COMPLIC 03/12/2016 VLADPING ARNAV CASE Ot D50 .9 IRON DEFICIENCY ANEMIA, UNSPECIFIED 03/12/2016 VLADPING ARNAV CASE Ot E11 .9 TYPE 2 DIABETES MELLITUS WITHOUT COMPLIC 03/14/2016 VLADPING ARNAV CASE Ot D50 .9 IRON DEFICIENCY ANEMIA, UNSPECIFIED 03/14/2016 VLADPING ARNAV CASE Ot E11 .9 TYPE 2 DIABETES MELLITUS WITHOUT COMPLIC 04/05/2016 ZENA GRAVES DO Ot G43.909 MIGRAINE, UNSP, NOT INTRACTABLE, WITHOUT 04/08/2016 ZENA GRAVES DO Ot G43.909 MIGRAINE, UNSP, NOT INTRACTABLE, WITHOUT 04/22/2016 ZENA GRAVES DO Ot G43.909 MIGRAINE, UNSP, NOT INTRACTABLE, WITHOUT 08/06/2016 Ot 722.52 LUM B/LUMBOSAC DISC DEGEN 08/06/2016 Ot V45.4 ARTH RODESIS STATUS 08/06/2016 Ot V67.09 ANGELICA RONNA FOLLOW- UP, OTHER SURGERY 08/06/2016 Ot 793.7 NOSP (ABN) FINDINGS ON RADIOLOGICAL OT 08/06/2016 Ot V45.4 ARTH RODESIS STATUS 08/06/2016 Ot V67.09 ANGELICA RONNA FOLLOW- UP, OTHER SURGERY 08/06/2016 Ot 722.52 LUM B/LUMBOSAC DISC DEGEN 08/06/2016 Ot 722.10 LUM BAR DISC DISPLACEMENT 08/06/2016 Ot 722.52 LUM B/LUMBOSAC DISC DEGEN 08/06/2016 Ot V45.4 ARTH RODESIS STATUS 08/06/2016 Ot 799.02 HYP OXEMIA 08/06/2016 Ot 620.2 OVAR RAUL CYST NEC/NOS 08/06/2016 Ot 789.00 ABD OMINAL PAIN, UNSPECIFIED SITE 08/06/2016 Ot 790.6 ABN BLOOD CHEMISTRY NEC 08/06/2016 Ot 785.1 PALP ITATIONS 08/06/2016 Ot 078.89 VIR AL DISEASES NEC 08/06/2016 Ot 790.6 ABN BLOOD CHEMISTRY NEC 08/06/2016 Ot 496 CHR AI RWAY OBSTRUCT NEC 08/06/2016 Ot 780.4 DIZZ INESS AND GIDDINESS 08/06/2016 Ot 780.79 OTH MALAISE FATIGUE 08/06/2016 Ot 782.3 EDEMA 08/06/2016 Ot 785.1 PALP ITATIONS 08/06/2016 Ot 786.05 GERRI RTNESS OF BREATH 08/06/[address] PAIN NOS 08/06/2016 Ot V58.66 GLORIA G-TERM (CURRENT) USE OF ASPIRIN 08/06/2016 Ot V58.69 OTH MED,LT,CURRENT USE 08/06/2016 Ot V72.63 PRE -PROCEDURAL LABORATORY EXAMINATION 08/06/2016 Ot V72.81 [id number] CARDIOVASCULAR 08/06/2016 Ot 244.9 HYPO THYROIDISM NOS 08/06/2016 Ot 782.3 EDEMA 08/06/2016 Ot 721.3 LUMB OSACRAL SPONDYLOSIS 08/06/2016 Ot 722.52 LUM B/LUMBOSAC DISC DEGEN 08/06/2016 Ot 782.3 EDEMA 08/06/2016 Ot V45.4 ARTH RODESIS STATUS 08/06/2016 Ot 729.81 SWE LLING OF LIMB 08/06/2016 Ot V58.69 OTH MED,LT,CURRENT USE 08/06/2016 Ot 327.23 OBS TRUCTIVE SLEEP APNEA (ADULT) (PEDIATR 08/06/2016 Ot 496 CHR AI RWAY OBSTRUCT NEC 08/06/2016 Ot 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.8 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 YVETTE LIVER DIS NEC 08/06/2016 Ot 786.05 GERRI RTNESS OF BREATH 08/06/2016 Ot V58.69 OTH MED,LT,CURRENT USE 08/06/2016 Ot 790.5 ABN SERUM ENZY LEVEL NEC 08/06/2016 Ot 787.20 DYS PHAGIA, UNSPECIFIED 08/06/2016 SARAH KIM MD Ot 276.1 HYPOSMOLALITY 08/06/2016 ZENA UMANZOR STOCK CHASER Ot 625.9 FEM GENITAL SYMPTOMS NOS 08/06/2016 JEANETH DAVIS FACC, ALI FACP CCDS Ot V58.69 OTH MED,LT,CURRENT USE 08/06/2016 SARAH KIM MD Ot 729.5 PAIN IN LIMB 08/06/2016 SARAH KIM MD Ot 729.81 SWELLING OF LIMB 08/06/2016 BEV BAIN STOCK CHASER Ot 276.8 HYPOPOTASSEMIA 08/06/2016 BAIMA, BEV L STOCK CHASER Ot 276.8 HYPOPOTASSEMIA 08/06/2016 BEV BAIN L STOCK CHASER Ot V58.69 OT MED,LT,CURRENT USE 08/06/2016 YAMILETH LAURENT MD Ot 429 .3 CARDIOMEGALY 08/06/2016 YAMILETH LAURENT MD Ot 496 CHR AIRWAY OBSTRUCT NEC 08/06/2016 JEANETH DAVIS FACC, ALI FACP CCDS Ot 416.8 CHR PULMON HEART DIS NEC 08/06/2016 JEANETH DAVIS FACC, ALI FACP CCDS Ot 427.89 CARDIAC DYSRHYTHMIAS NEC 08/06/2016 JEANETH DAVIS FAC, ALI FACP CCDS Ot 496 CHR AIRWAY OBSTRUCT NEC 08/06/2016 JEANETH DAVIS FAC, ALI FACP CCDS Ot 785.6 ENLARGEMENT LYMPH NODES 08/06/2016 JEANETH DAVIS FAC, ALI FACP CCDS Ot 786.05 SHORTNESS OF BREATH 08/06/2016 JEANETH DAVIS FAC, ALI FACP CCDS Ot 786.50 CHEST PAIN NOS 08/06/2016 BEV BAIN L STOCK CHASER Ot 278.01 MORBID OBESITY 08/06/2016 DARIUSHÉCTOR POEHER L STOCK CHASER Ot 278.03 OBESITY HYPOVENTILATION SYNDROME 08/06/2016 BAIHÉCTOR POEHER L STOCK CHASER Ot 305.1 TOBACCO USE DISORDER 08/06/2016 DARIUSHÉCTOR POEHER L STOCK CHASER Ot 397.0 TRICUSPID VALVE DISEASE 08/06/2016 BAIHÉCTOR POEHER L STOCK CHASER Ot 416.8 CHR PULMON HEART DIS NEC 08/06/2016 HÉCTOR BAINHER L STOCK CHASER Ot 424.0 MITRAL VALVE DISORDER 08/06/2016 DARIUSHÉCTOR POEHER L STOCK CHASER Ot 429.9 HEART DISEASE NOS 08/06/2016 HÉCTOR BAINHER L STOCK CHASER Ot 4 96 CHR AIRWAY OBSTRUCT NEC 08/06/2016 DARIUSLUI BEV L STOCK CHASER Ot 786.09 RESPIRATORY ABNORM NEC 08/06/2016 DARIUSMA BEV L STOCK CHASER Ot 276.8 HYPOPOTASSEMIA 08/06/2016 ODELL BEV L STOCK CHASER Ot 276.8 HYPOPOTASSEMIA 08/06/2016 SASHA DAVIS, XIAO A Ot 519.19 OTHER DISEASES OF TRACHEA AND BRONCHUS 08/06/2016 SASHA DAVIS, XIAO A Ot 786 .6 CHEST SWELLING/MASS/LUMP 08/06/2016 ZENA UMANZOR STOCK CHASER Ot 724.4 LUMBOSACRAL NEURITIS NOS 08/06/2016 ZENA UMANZOR STOCK CHASER Ot 285.9 ANEMIA NOS 08/06/2016 Ot 518.89 OTH ER DISEASES OF LUNG, NEC 08/06/2016 Ot 793.11 ANIA ITARY PULMONARY NODULE 08/06/2016 Ot 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 KIDNEY DISEASE, STAGE III (MODER 08/06/2016 LANDON LOVE MD Ot 285.9 ANEMIA NOS 08/06/2016 LANDON LOVE MD Ot 403.90 HYPTNSV CHR KID DIS, UNSPEC, W CHR KD ST 08/06/2016 LANDON LOVE MD Ot 585.3 CHRONIC KIDNEY DISEASE, STAGE III (MODER 08/06/2016 CHARLES TEMPLETON STEM CUTTER Ot 135 SARCOIDOSIS 08/06/2016 CHARLES TEMPLETON STEM CUTTER Ot 305.1 TOBACCO USE DISORDER 08/06/2016 CHARLES TEMPLETON STEM CUTTER Ot 327.23 OBSTRUCTIVE SLEEP APNEA (ADULT) (PEDIATR 08/06/2016 CHARELS TEMPLETON STEM CUTTER Ot 416.8 CHR PULMON HEART DIS NEC 08/06/2016 CHARLES TEMPLETON STEM CUTTER Ot 493.90 ASTHMA, UNSPECIFIED 08/06/2016 CHARLES TEMPLETON STEM CUTTER Ot 786.05 SHORTNESS OF BREATH 08/06/2016 CHARLES TEMPLETON STEM CUTTER Ot 786.09 RESPIRATORY ABNORM NEC 08/06/2016 TIPPING DO, ARNAV C Ot 244 .9 HYPOTHYROIDISM NOS 08/06/2016 TIPPING DO, ARNAV C Ot 250.00 DIAB CALIN WO COMPL, TYPE II OR UNSPEC TY 08/06/2016 TIPPING DO, ARNAV C Ot 285 .9 ANEMIA NOS 08/06/2016 TIPPING DO, ARNAV C Ot 403.90 HYPTNSV CHR KID DIS, UNSPEC, W CHR KD ST 08/06/2016 TIPPING DO, ARNAV C Ot 585 .9 CHRONIC KIDNEY DISEASE, UNSPECIFIED 08/06/2016 TIPPING DO, ARNAV C Ot 799.02 HYPOXEMIA 08/06/2016 LANDON LOVE MD Ot 250.00 DIAB CALIN WO COMPL, TYPE II OR UNSPEC TY 08/06/2016 LANDON LOVE MD Ot 428.32 CHRONIC DIASTOLIC HRT FAILURE 08/06/2016 LOVE MD, TALAL A Ot 496 CHR AIRWAY OBSTRUCT NEC 08/06/2016 Ot E11.9 TYPE 2 DIABETES MELLITUS WITHOUT COMPLIC 08/06/2016 Ot E78.5 HYPE RLIPIDEMIA, UNSPECIFIED 08/06/2016 Ot I12.9 HYPE RTENSIVE CHRONIC KIDNEY DISEASE W ST 08/06/2016 Ot 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 01 MORBID (SEVERE) OBESITY DUE TO EXCESS CA 08/06/2016 PASCUAL JORGENSEN DO Ot G47. 33 OBSTRUCTIVE SLEEP APNEA (ADULT) (PEDIATR 08/06/2016 PASCUAL JORGENSEN DO Ot J45.909 UNSPECIFIED ASTHMA, UNCOMPLICATED 08/06/2016 PASCUAL JORGENSEN DO Ot R59. 0 LOCALIZED ENLARGED LYMPH NODES 08/06/2016 BEV BAIN L STOCK CHASER Ot E07.9 DISORDER OF THYROID, UNSPECIFIED 08/06/2016 BEV BAIN L STOCK CHASER Ot 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 TRICUSPID INSUFFICIENCY 08/06/2016 BEV BAIN L STOCK CHASER Ot R00.2 PALPITATIONS 08/06/2016 DARIUSMA BEV L STOCK CHASER Ot R07.9 CHEST PAIN, UNSPECIFIED 08/06/2016 Ot E07.9 DISO RDER OF THYROID, UNSPECIFIED 08/06/2016 Ot I07.1 RHEU MATIC TRICUSPID INSUFFICIENCY 08/06/2016 Ot R00.2 PALP ITATIONS 08/06/2016 Ot R07.9 CHES T PAIN, UNSPECIFIED 08/06/2016 BAIHÉCTOR POEHER L STOCK CHASER Ot E07.9 DISORDER OF THYROID, UNSPECIFIED 08/06/2016 BAIMA BEV L STOCK CHASER Ot 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 TRICUSPID INSUFFICIENCY 08/06/2016 ODELL BEV L STOCK CHASER Ot R00.2 PALPITATIONS 08/06/2016 ODELL BEV L STOCK CHASER Ot R07.9 CHEST PAIN, UNSPECIFIED 08/06/2016 ARNAV ALBERTO DO Ot D50 .9 IRON DEFICIENCY ANEMIA, UNSPECIFIED 08/06/2016 ARNAV ALBERTO DO Ot E11 .9 TYPE 2 DIABETES MELLITUS WITHOUT COMPLIC 08/06/2016 ARNAV ALBERTO DO Ot E11 .9 TYPE 2 DIABETES MELLITUS WITHOUT COMPLIC 08/06/2016 TIPPING DO, ARNAV C Ot E78 .2 MIXED HYPERLIPIDEMIA 08/06/2016 TIPPING DO, ARNAV C Ot E11 .9 TYPE 2 DIABETES MELLITUS WITHOUT COMPLIC 08/06/2016 TIPPING DO, ARNAV C Ot E78 .2 MIXED HYPERLIPIDEMIA 08/06/2016 TIPPING DO, ARNAV C Ot E11 .9 TYPE 2 DIABETES MELLITUS WITHOUT COMPLIC 08/06/2016 TIPPING DO, ARNAV C Ot E78 .2 MIXED HYPERLIPIDEMIA 08/06/2016 TIPPING DO, ARNAV C Ot N18 .3 CHRONIC KIDNEY DISEASE, STAGE 3 (MODERAT 08/20/2016 NOLVIA KILLIAN MD Ot A41 .9 SEPSIS, UNSPECIFIED ORGANISM 08/20/2016 NOLVIA KILLIAN MD Ot E03 .9 HYPOTHYROIDISM, UNSPECIFIED 08/20/2016 NOLVIA KILLIAN MD Ot E11 .9 TYPE 2 DIABETES MELLITUS WITHOUT COMPLIC 08/20/2016 NOLVIA KILLIAN MD Ot E66 .9 OBESITY, UNSPECIFIED 08/20/2016 NOLVIA KILLIAN MD Ot E78.00 PURE HYPERCHOLESTEROLEMIA, UNSPECIFIED 08/20/2016 NOLVIA KILLIAN MD Ot F32 .9 MAJOR DEPRESSIVE DISORDER, SINGLE EPISOD 08/20/2016 NOLVIA KILLIAN MD Ot G25.81 RESTLESS LEGS SYNDROME 08/20/2016 NOLVIA KILLIAN MD Ot I50 .9 HEART FAILURE, UNSPECIFIED 08/20/2016 NOLVIA KILLIAN MD, Ot J18 .9 PNEUMONIA, UNSPECIFIED ORGANISM 08/20/2016 NOLVIA KILLIAN MD Ot 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, UNS 08/20/2016 NOLVIA KILLIAN MD Ot J44 .0 CHRONIC OBSTRUCTIVE PULMON DISEASE W ACU 08/20/2016 NOLVIA KILLIAN MD, Ot J44 .1 CHRONIC OBSTRUCTIVE PULMONARY DISEASE W 08/20/2016 NOLVIA KILLIAN MD Ot M79 .7 FIBROMYALGIA 08/20/2016 NOLVIA KILLIAN MD Ot R11 .2 NAUSEA WITH VOMITING, UNSPECIFIED 08/20/2016 NOLVIA KILLIAN MD Ot R13.10 DYSPHAGIA, UNSPECIFIED 08/20/2016 NOLVIA KILLIAN MD, Ot R19 .7 DIARRHEA, UNSPECIFIED 08/20/2016 NOLVIA KILLIAN MD Ot Z68.43 BODY MASS INDEX (BMI) 50-59.9 , ADULT 08/20/2016 CONSTANTIN DAVIS, NOLVIA Mays Ot Z87.891 PERSONAL HISTORY OF NICOTINE DEPENDENCE 08/27/2016 TIPPING DO, ARNAV C Ot E11 .9 TYPE 2 DIABETES MELLITUS WITHOUT COMPLIC 08/27/2016 TIPPING DO, ARNAV C Ot E78 .2 MIXED HYPERLIPIDEMIA 08/27/2016 TIPPING DO, ARNAV C Ot N18 .3 CHRONIC KIDNEY DISEASE, STAGE 3 (MODERAT 09/04/2016 TIPPING DO, ARNAV C Ot E11 .9 TYPE 2 DIABETES MELLITUS WITHOUT COMPLIC 09/04/2016 TIPPING DO, ARNAV C Ot E78 .2 MIXED HYPERLIPIDEMIA 09/04/2016 TIPPING DO, ARNAV C Ot N18 .3 CHRONIC KIDNEY DISEASE, STAGE 3 (MODERAT 11/25/2016 Ot 722.52 LUM B/LUMBOSAC DISC DEGEN 11/25/2016 Ot 722.10 LUM BAR DISC DISPLACEMENT 11/25/2016 Ot 722.52 LUM B/LUMBOSAC DISC DEGEN 11/25/2016 Ot V45.4 ARTH RODESIS STATUS 11/25/2016 Ot 799.02 HYP OXEMIA 11/25/2016 Ot 620.2 OVAR RAUL CYST NEC/NOS 11/25/2016 Ot 789.00 ABD OMINAL PAIN, UNSPECIFIED SITE 11/25/2016 Ot 790.6 ABN BLOOD CHEMISTRY NEC 11/25/2016 Ot 785.1 PALP ITATIONS 11/25/2016 Ot 078.89 VIR AL DISEASES NEC 11/25/2016 Ot 790.6 ABN BLOOD CHEMISTRY NEC 11/25/2016 Ot 496 CHR AI RWAY OBSTRUCT NEC 11/25/2016 Ot 780.4 DIZZ INESS AND GIDDINESS 11/25/2016 Ot 780.79 OTH MALAISE FATIGUE 11/25/2016 Ot 782.3 EDEMA 11/25/2016 Ot 785.1 PALP ITATIONS 11/25/2016 Ot 786.05 GERRI RTNESS OF BREATH 11/25/[address] PAIN NOS 11/25/2016 Ot V58.66 GLORIA G-TERM (CURRENT) USE OF ASPIRIN 11/25/2016 Ot V58.69 OTH MED,LT,CURRENT USE 11/25/2016 Ot V72.63 PRE -PROCEDURAL LABORATORY EXAMINATION 11/25/2016 Ot V72.81 HJKR-NFT-PAQJKLDOT CARDIOVASCULAR 11/25/2016 Ot 244.9 HYPO THYROIDISM NOS 11/25/2016 Ot 782.3 EDEMA 11/25/2016 Ot 721.3 LUMB OSACRAL SPONDYLOSIS 11/25/2016 Ot 722.52 LUM B/LUMBOSAC DISC DEGEN 11/25/2016 Ot 782.3 EDEMA 11/25/2016 Ot V45.4 ARTH RODESIS STATUS 11/25/2016 Ot 729.81 SWE LLING OF LIMB 11/25/2016 Ot V58.69 OTH MED,LT,CURRENT USE 11/25/2016 Ot 327.23 OBS TRUCTIVE SLEEP APNEA (ADULT) (PEDIATR 11/25/2016 Ot 496 CHR AI RWAY OBSTRUCT NEC 11/25/2016 Ot 571.8 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 YVETTE LIVER DIS NEC 11/25/2016 Ot 786.05 GERRI RTNESS OF BREATH 11/25/2016 Ot V58.69 OTH MED,LT,CURRENT USE 11/25/2016 Ot 790.5 ABN SERUM ENZY LEVEL NEC 11/25/2016 Ot 787.20 DYS PHAGIA, UNSPECIFIED 11/25/2016 SARAH KIM MD Ot 276.1 HYPOSMOLALITY 11/25/2016 ZENA UMANZOR STOCK CHASER Ot 625.9 FEM GENITAL SYMPTOMS NOS 11/25/2016 JEANETH DAVIS FACC, SOPHIE FACRolly CCDS Ot V58.69 OTH MED,LT,CURRENT USE 11/25/2016 SARAH KIM MD Ot 729.5 PAIN IN LIMB 11/25/2016 SARAH KIM MD Ot 729.81 SWELLING OF LIMB 11/25/2016 BEV BAIN STOCK CHASER Ot 276.8 HYPOPOTASSEMIA 11/25/2016 BEV BAIN STOCK CHASER Ot 276.8 HYPOPOTASSEMIA 11/25/2016 BEV BAIN STOCK CHASER Ot V58.69 OTH MED,LT,CURRENT USE 11/25/2016 YAMILETH LAURENT MD Ot 429 .3 CARDIOMEGALY 11/25/2016 YAMILETH LAURENT MD Ot 496 CHR AIRWAY OBSTRUCT NEC 11/25/2016 JEANETH DAVIS FACC, ALI FACP CCDS Ot 416.8 CHR PULMON HEART DIS NEC 11/25/2016 JEANETH DAVIS FACC, ALI FACP CCDS Ot 427.89 CARDIAC DYSRHYTHMIAS NEC 11/25/2016 JEANETH DAVIS [facility], ALI FACP CCDS Ot 496 CHR AIRWAY OBSTRUCT NEC 11/25/2016 JEANETH DAVIS [facility], ALI FACP CCDS Ot 785.6 ENLARGEMENT LYMPH NODES 11/25/2016 JEANETH DAVIS [facility], ALI FACP CCDS Ot 786.05 SHORTNESS OF BREATH 11/25/2016 JEANETH DAVIS [facility], ALI FACP CCDS Ot 786.50 CHEST PAIN NOS 11/25/2016 BAIMA, BEV L STOCK CHASER Ot 278.01 MORBID OBESITY 11/25/2016 BAIMA, BEV L STOCK CHASER Ot 278.03 OBESITY HYPOVENTILATION SYNDROME 11/25/2016 BAIMA, BEV L STOCK CHASER Ot 305.1 TOBACCO USE DISORDER 11/25/2016 BAIMA, BEV L STOCK CHASER Ot 397.0 TRICUSPID VALVE DISEASE 11/25/2016 BAIMA, BEV L STOCK CHASER Ot 416.8 CHR PULMON HEART DIS NEC 11/25/2016 BAIMA, BEV L STOCK CHASER Ot 424.0 MITRAL VALVE DISORDER 11/25/2016 BAIMA, BEV L STOCK CHASER Ot 429.9 HEART DISEASE NOS 11/25/2016 BAIMA, BEV L STOCK CHASER Ot 4 96 CHR AIRWAY OBSTRUCT NEC 11/25/2016 BAIMA, BEV L STOCK CHASER Ot 786.09 RESPIRATORY ABNORM NEC 11/25/2016 BAIMA, BEV L STOCK CHASER Ot 276.8 HYPOPOTASSEMIA 11/25/2016 BAIMA, BEV L STOCK CHASER Ot 276.8 HYPOPOTASSEMIA 11/25/2016 SASHA DAVIS, XIAO A Ot 519.19 OTHER DISEASES OF TRACHEA AND BRONCHUS 11/25/2016 SASHA DAVIS, XIAO A Ot 786 .6 CHEST SWELLING/MASS/LUMP 11/25/2016 ZENA UMANZOR STOCK CHASER Ot 724.4 LUMBOSACRAL NEURITIS NOS 11/25/2016 ZENA UMANZOR STOCK CHASER Ot 285.9 ANEMIA NOS 11/25/2016 Ot 518.89 OTH ER DISEASES OF LUNG, NEC 11/25/2016 Ot 793.11 ANIA ITARY PULMONARY NODULE 11/25/2016 Ot 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 KIDNEY DISEASE, STAGE III (MODER 11/25/2016 LANDON LOVE MD Ot 285.9 ANEMIA NOS 11/25/2016 LANDON LOVE MD Ot 403.90 HYPTNSV CHR KID DIS, UNSPEC, W CHR KD ST 11/25/2016 LANDON LOVE MD Ot 585.3 CHRONIC KIDNEY DISEASE, STAGE III (MODER 11/25/2016 CHARLES TEMPLETON STEM CUTTER Ot 135 SARCOIDOSIS 11/25/2016 CHARLES TEMPLETON APRN Ot 305.1 TOBACCO USE DISORDER 11/25/2016 CHARLES TEMPLETON APRN Ot 327.23 OBSTRUCTIVE SLEEP APNEA (ADULT) (PEDIATR 11/25/2016 CHARLES TEMPLETON APRN Ot 416.8 CHR PULMON HEART DIS NEC 11/25/2016 CHARLES TEMPLETON APRN Ot 493.90 ASTHMA, UNSPECIFIED 11/25/2016 CHARLES TEMPLETON APRN Ot 786.05 SHORTNESS OF BREATH 11/25/2016 CHARLES TEMPLETON APRN Ot 786.09 RESPIRATORY ABNORM NEC 11/25/2016 TIPPING DO, ARNAV C Ot 244 .9 HYPOTHYROIDISM NOS 11/25/2016 TIPPING DO, ARNAV C Ot 250.00 DIAB CALIN WO COMPL, TYPE II OR UNSPEC TY 11/25/2016 TIPPING DO, ARNAV C Ot 285 .9 ANEMIA NOS 11/25/2016 TIPPING DO, ARNAV C Ot 403.90 HYPTNSV [facility] KID DIS, UNSPEC, W [facility] KD ST 11/25/2016 TIPPING DO ARNAV C Ot 585 .9 CHRONIC KIDNEY DISEASE, UNSPECIFIED 11/25/2016 TIPPING DO, ARNAV C Ot 799.02 HYPOXEMIA 11/25/2016 LANDON LOVE MD Ot 250.00 DIAB CALIN WO COMPL, TYPE II OR UNSPEC TY 11/25/2016 LANDON LOVE MD Ot 428.32 CHRONIC DIASTOLIC HRT FAILURE 11/25/2016 LANDON LOVE MD Ot 496 CHR AIRWAY OBSTRUCT NEC 11/25/2016 Ot E11.9 TYPE 2 DIABETES MELLITUS WITHOUT COMPLIC 11/25/2016 Ot E78.5 HYPE RLIPIDEMIA, UNSPECIFIED 11/25/2016 Ot I12.9 HYPE RTENSIVE CHRONIC KIDNEY DISEASE W ST 11/25/2016 Ot N18.9 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 YVETTE KIDNEY DISEASE, UNSPECIFIED 11/25/2016 Ot R09.02 HYP OXEMIA 11/25/2016 PASCUAL JORGENSEN DO Ot E66. 01 MORBID (SEVERE) OBESITY DUE TO EXCESS CA 11/25/2016 JOSLYN CASE PASCUAL Ani Ot G47. 33 OBSTRUCTIVE SLEEP APNEA (ADULT) (PEDIATR 11/25/2016 JOSLYNPASCUAL MUELLER DO Ot J45.909 UNSPECIFIED ASTHMA, UNCOMPLICATED 11/25/2016 JOSLYN CASE PASCUAL Law Ot R59. 0 LOCALIZED ENLARGED LYMPH NODES 11/25/2016 DARIUSLUI BEV L STOCK CHASER Ot E07.9 DISORDER OF THYROID, UNSPECIFIED 11/25/2016 DARIUSMA BEV L STOCK CHASER Ot 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 TRICUSPID INSUFFICIENCY 11/25/2016 BAIMA, BEV L STOCK CHASER Ot R00.2 PALPITATIONS 11/25/2016 BAIMA, BEV L STOCK CHASER Ot R07.9 CHEST PAIN, UNSPECIFIED 11/25/2016 Ot E07.9 DISO RDER OF THYROID, UNSPECIFIED 11/25/2016 Ot I07.1 RHEU MATIC TRICUSPID INSUFFICIENCY 11/25/2016 Ot R00.2 PALP ITATIONS 11/25/2016 Ot R07.9 CHES T PAIN, UNSPECIFIED 11/25/2016 ODELL BEV L STOCK CHASER Ot E07.9 DISORDER OF THYROID, UNSPECIFIED 11/25/2016 BAIMA BEV L STOCK CHASER Ot 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 TRICUSPID INSUFFICIENCY 11/25/2016 DARIUSMA BEV L STOCK CHASER Ot R00.2 PALPITATIONS 11/25/2016 DARIUSMA BEV L STOCK CHASER Ot R07.9 CHEST PAIN, UNSPECIFIED 11/25/2016 ARNAV ALBERTO DO Ot D50 .9 IRON DEFICIENCY ANEMIA, UNSPECIFIED 11/25/2016 ARNAV ALBERTO DO Ot E11 .9 TYPE 2 DIABETES MELLITUS WITHOUT COMPLIC 11/25/2016 ARNAV ALBERTO DO Ot E11 .9 TYPE 2 DIABETES MELLITUS WITHOUT COMPLIC 11/25/2016 ARNAV ALBERTO DO Ot E78 .2 MIXED HYPERLIPIDEMIA 11/25/2016 ARNAV ALBERTO DO Ot N18 .3 CHRONIC KIDNEY DISEASE, STAGE 3 (MODERAT 11/25/2016 ERICA MCPHERSON APRN Ot E11 .9 TYPE 2 DIABETES MELLITUS WITHOUT COMPLIC 11/25/2016 ERICA MCPHERSON APRN Ot J44 .9 CHRONIC OBSTRUCTIVE PULMONARY DISEASE, U 11/25/2016 ERICA MCPHERSON APRN Ot S61.011A LACERATION W/O FB OF RIGHT THUMB W/O DAM 11/25/2016 ERICA MCPHERSON APRN Ot W45.8XXA OTH FOREIGN BODY OR OBJECT ENTERING THRO 11/25/2016 ERICA MCPHERSON APRN Ot Y99 .8 OTHER EXTERNAL CAUSE STATUS 11/25/2016 ERICA MCPHERSON APRN Ot Z79.899 OTHER PRISON (CURRENT) DRUG THERAPY 11/25/2016 ERICA MCPHERSON APRN Ot Z87.891 PERSONAL HISTORY OF NICOTINE DEPENDENCE 11/27/2016 ERICA MCPHERSON APRN Ot E11 .9 TYPE 2 DIABETES MELLITUS WITHOUT COMPLIC 11/27/2016 ERICA MCPHERSON APRN Ot J44 .9 CHRONIC OBSTRUCTIVE PULMONARY DISEASE, U 11/27/2016 ERICA MCPHERSON APRN Ot S61.011A LACERATION W/O FB OF RIGHT THUMB W/O DAM 11/27/2016 ERICA MCPHERSON APRN Ot W45.8XXA OTH FOREIGN BODY OR OBJECT ENTERING THRO 11/27/2016 ERICA MCPHERSON APRN Ot Y99 .8 OTHER EXTERNAL CAUSE STATUS 11/27/2016 ERICA MCPHERSON APRN Ot Z79.899 OTHER WEB OPERATIONS ADMINISTRATOR (CURRENT) DRUG THERAPY 11/27/2016 ERICA MCPHERSON APRN Ot Z87.891 PERSONAL HISTORY OF NICOTINE DEPENDENCE 12/01/2016 ERICA MCPHERSON APRN Ot E11 .9 TYPE 2 DIABETES MELLITUS WITHOUT COMPLIC 12/01/2016 ERICA MCPHERSON APRN Ot J44 .9 CHRONIC OBSTRUCTIVE PULMONARY DISEASE, U 12/01/2016 ERICA MCPHERSON APRN Ot S61.011A LACERATION W/O FB OF RIGHT THUMB W/O DAM 12/01/2016 ERICA MCPHERSON APRN Ot W45.8XXA OTH FOREIGN BODY OR OBJECT ENTERING THRO 12/01/2016 ERICA MCPHERSON APRN Ot Y99 .8 OTHER EXTERNAL CAUSE STATUS 12/01/2016 ERICA MCPHERSON APRN Ot Z79.899 OTHER PRISON (CURRENT) DRUG THERAPY 12/01/2016 ERICA MCPHERSON APRN Ot Z87.891 PERSONAL HISTORY OF NICOTINE DEPENDENCE 12/05/2016 TIPPING DO, ARNAV C Ot D50 .9 IRON DEFICIENCY ANEMIA, UNSPECIFIED 12/05/2016 TIPPING DO, ARNAV C Ot E78 .5 HYPERLIPIDEMIA, UNSPECIFIED 12/05/2016 TIPPING DO, ARNAV C Ot D50 .9 IRON DEFICIENCY ANEMIA, UNSPECIFIED 12/05/2016 TIPPING DO, ARNAV C Ot E78 .5 HYPERLIPIDEMIA, UNSPECIFIED 12/05/2016 NAKIA DAVIS, DILCIA Shrestha Ot S61.011D LACERATION W/O FB OF RIGHT THUMB W/O DAM 12/06/2016 NAKIA DAVIS, DILCIA Shrestha Ot S61.011D LACERATION W/O FB OF RIGHT THUMB W/O DAM 12/13/2016 ERICA MCPHERSON STEM CUTTER Ot E66 .9 OBESITY, UNSPECIFIED 12/13/2016 ERICA MCPHERSON STEM CUTTER Ot F17.210 NICOTINE DEPENDENCE, CIGARETTES, UNCOMPL 12/13/2016 ERICA MCPHERSON STEM CUTTER Ot G89.29 OTHER CHRONIC PAIN 12/13/2016 ERICA CMPHERSON STEM CUTTER Ot J44 .9 CHRONIC OBSTRUCTIVE PULMONARY DISEASE, U 12/13/2016 ERICA MCPHERSON STEM CUTTER Ot L03.116 CELLULITIS OF LEFT LOWER LIMB 12/13/2016 ERICA MCPHERSON STEM CUTTER Ot M54 .5 LOW BACK PAIN 12/13/2016 ERICA MCPHERSON STEM CUTTER Ot Z79.899 OTHER PRISON (CURRENT) DRUG THERAPY 12/19/2016 ERICA MCPHERSON STEM CUTTER Ot E66 .9 OBESITY, UNSPECIFIED 12/19/2016 ERICA MCPHERSON STEM CUTTER Ot F17.210 NICOTINE DEPENDENCE, CIGARETTES, UNCOMPL 12/19/2016 ERICA MCPHERSON STEM CUTTER Ot G89.29 OTHER CHRONIC PAIN 12/19/2016 ERICA MCPHERSON STEM CUTTER Ot J44 .9 CHRONIC OBSTRUCTIVE PULMONARY DISEASE, U 12/19/2016 ERICA MCPHERSON STEM CUTTER Ot L03.116 CELLULITIS OF LEFT LOWER LIMB 12/19/2016 ERICA MCPHERSON STEM CUTTER Ot M54 .5 LOW BACK PAIN 12/19/2016 ERICA MCPHERSON STEM CUTTER Ot Z79.899 OTHER WEB OPERATIONS ADMINISTRATOR (CURRENT) DRUG THERAPY 12/25/2016 VLADPING DOLINAIG C Ot D50 .9 IRON DEFICIENCY ANEMIA, UNSPECIFIED 12/25/2016 TIPPING DOLINAIG C Ot E78 .5 HYPERLIPIDEMIA, UNSPECIFIED 12/27/2016 NAKIA DAVIS, DILCIA Shrestha Ot F17.210 NICOTINE DEPENDENCE, CIGARETTES, UNCOMPL 12/27/2016 BRUDILCIA CHANG MD Ot J44.9 CHRONIC OBSTRUCTIVE PULMONARY DISEASE, U 12/27/2016 DILCIA YEE MD Ot L71.0 PERIORAL DERMATITIS 12/27/2016 DILCIA YEE MD Ot R21 RASH AND OTHER NONSPECIFIC SKIN ERUPTION 12/27/2016 DILCIA YEE MD Ot F17.210 NICOTINE DEPENDENCE, CIGARETTES, UNCOMPL 12/27/2016 DILCIA YEE MD Ot J44.9 CHRONIC OBSTRUCTIVE PULMONARY DISEASE, U 12/27/2016 DILCIA YEE MD Ot L71.0 PERIORAL DERMATITIS 12/27/2016 DILCIA YEE MD Ot R21 RASH AND OTHER NONSPECIFIC SKIN ERUPTION 01/01/2017 TIPPING DO, ARNAV C Ot D50 .9 IRON DEFICIENCY ANEMIA, UNSPECIFIED 01/01/2017 TIPPING DO, ARNAV C Ot E78 .5 HYPERLIPIDEMIA, UNSPECIFIED 02/23/2017 ERICA MCPHERSON APRN Ot E66 .9 OBESITY, UNSPECIFIED 02/23/2017 ERICA MCPHERSON APRN Ot F17.210 NICOTINE DEPENDENCE, CIGARETTES, UNCOMPL 02/23/2017 ERICA MCPHERSON STEM CUTTER Ot G89.29 OTHER CHRONIC PAIN 02/23/2017 ERICA MCPHERSON APRN Ot J44 .9 CHRONIC OBSTRUCTIVE PULMONARY DISEASE, U 02/23/2017 ERICA MCPHERSON STEM CUTTER Ot L03.116 CELLULITIS OF LEFT LOWER LIMB 02/23/2017 ERICA MCPHEROSN APRN Ot M54 .5 LOW BACK PAIN 02/23/2017 ERICA MCPHERSON APRN Ot Z79.899 OTHER PRISON (CURRENT) DRUG THERAPY 03/13/2017 ERICA MCPHERSON STEM CUTTER Ot E66 .9 OBESITY, UNSPECIFIED 03/13/2017 ERICA MCPHERSON STEM CUTTER Ot F17.210 NICOTINE DEPENDENCE, CIGARETTES, UNCOMPL 03/13/2017 ERICA MCPHERSON STEM CUTTER Ot G89.29 OTHER CHRONIC PAIN 03/13/2017 ERICA MCPHERSON APRN Ot J44 .9 CHRONIC OBSTRUCTIVE PULMONARY DISEASE, U 03/13/2017 ERICA MCPHERSON STEM CUTTER Ot L03.116 CELLULITIS OF LEFT LOWER LIMB 03/13/2017 ERICA MCPHERSON STEM CUTTER Ot M54 .5 LOW BACK PAIN 03/13/2017 ERICA MCPHERSON APRN Ot Z79.899 OTHER WEB OPERATIONS ADMINISTRATOR (CURRENT) DRUG THERAPY 05/29/2017 JALEEL, MARY STOCK CHASER Ot E03.9 HYPOTHYROIDISM, UNSPECIFIED 05/29/2017 JALEEL, MARY STOCK CHASER Ot E11.9 TYPE 2 DIABETES MELLITUS WITHOUT COMPLIC 05/29/2017 JALEEL, MARY STOCK CHASER Ot E78.00 PURE HYPERCHOLESTEROLEMIA, UNSPECIFIED 05/29/2017 JALEEL, MARY STOCK CHASER Ot F32.9 MAJOR DEPRESSIVE DISORDER, SINGLE EPISOD 05/29/2017 JALEEL, MARY STOCK CHASER Ot G43.909 MIGRAINE, UNSP, NOT INTRACTABLE, WITHOUT 05/29/2017 JALEEL, MARY STOCK CHASER Ot G47.30 SLEEP APNEA, UNSPECIFIED 05/29/2017 JALEEL, MARY STOCK CHASER Ot I50.9 HEART FAILURE, UNSPECIFIED 05/29/2017 JALEEL, MARY STOCK CHASER Ot J02.9 ACUTE PHARYNGITIS, UNSPECIFIED 05/29/2017 JALEEL, MARY STOCK CHASER Ot J30.9 ALLERGIC RHINITIS, UNSPECIFIED 05/29/2017 JALEEL MARY STOCK CHASER Ot J44.9 CHRONIC OBSTRUCTIVE PULMONARY DISEASE, U 05/29/2017 JALEEL, MARY STOCK CHASER Ot K21.9 GASTRO-ESOPHAGEAL REFLUX DISEASE WITHOUT 05/29/2017 JALEEL MARY STOCK CHASER Ot Z82.49 FAMILY HX OF ISCHEM HEART DIS AND OTH DI 05/29/2017 JALEEL MARY STOCK CHASER Ot Z87.19 PERSONAL HISTORY OF OTHER DISEASES OF TH 05/29/2017 JALEEL, MARY STOCK CHASER Ot Z87.440 PERSONAL HISTORY OF URINARY (TRACT) INFE 05/29/2017 JALEEL, MARY STOCK CHASER Ot Z87.448 PERSONAL HISTORY OF OTHER DISEASES OF UR 05/29/2017 JALEEL MARY STOCK CHASER Ot Z87.891 PERSONAL HISTORY OF NICOTINE DEPENDENCE 05/29/2017 JALEEL MARY STOCK CHASER Ot Z90.49 ACQUIRED ABSENCE OF OTHER SPECIFIED PART 05/29/2017 JALEEL MARY STOCK CHASER Ot Z90.89 ACQUIRED ABSENCE OF OTHER ORGANS 06/03/2017 TREMAYNE VALLES MD Ot D86. 1 SARCOIDOSIS OF LYMPH NODES 06/03/2017 TREMAYNE VALLES MD Ot E03. 9 HYPOTHYROIDISM, UNSPECIFIED 06/03/2017 TREMAYNE VALLES MD Ot E11. 9 TYPE 2 DIABETES MELLITUS WITHOUT COMPLIC 06/03/2017 TREMAYNE VALLES MD, Ot E66. 2 MORBID (SEVERE) OBESITY WITH ALVEOLAR HY 06/03/2017 TREMAYNE VALLES MD, Ot E78. 00 PURE HYPERCHOLESTEROLEMIA, UNSPECIFIED 06/03/2017 TREMAYNE VALLES MD, Ot E87. 6 HYPOKALEMIA 06/03/2017 TREMAYNE VALLES MD Ot F17.210 NICOTINE DEPENDENCE, CIGARETTES, UNCOMPL 06/03/2017 TREMAYNE VALLES MD, Ot F32. 9 MAJOR DEPRESSIVE DISORDER, SINGLE EPISOD 06/03/2017 TREMAYNE VALLES MD, Ot F41. 9 ANXIETY DISORDER, UNSPECIFIED 06/03/2017 TREMAYNE VALLES MD, Ot G25. 81 RESTLESS LEGS SYNDROME 06/03/2017 TREMAYNE VALLES MD, Ot G43.909 MIGRAINE, UNSP, NOT INTRACTABLE, WITHOUT 06/03/2017 TREMAYNE VALLES MD, Ot I27. 2 OTHER SECONDARY PULMONARY HYPERTENSION 06/03/2017 TREMAYNE VALLES MD Ot I50. 33 ACUTE ON CHRONIC DIASTOLIC (CONGESTIVE) 06/03/2017 TREMAYNE VALLES MD, Ot I51. 7 CARDIOMEGALY 06/03/2017 TREMAYNE VALLES MD, Ot J38. 00 PARALYSIS OF VOCAL CORDS AND LARYNX, UNS 06/03/2017 TREMAYNE VALLES MD, Ot J44. 1 CHRONIC OBSTRUCTIVE PULMONARY DISEASE W 06/03/2017 TREMAYNE VALLES MD, Ot K21. 9 GASTRO-ESOPHAGEAL REFLUX DISEASE WITHOUT 06/03/2017 TREMAYNE VALLES MD Ot K76. 0 FATTY (CHANGE OF) LIVER, NOT ELSEWHERE C 06/03/2017 TREMAYNE VALLES MD, Ot M47. 9 SPONDYLOSIS, UNSPECIFIED 06/03/2017 TREMAYNE VALLES MD Ot M79. 7 FIBROMYALGIA 06/03/2017 TREMAYNE VALLES MD Ot R09. 02 HYPOXEMIA 06/03/2017 TREMAYNE VALLES MD, Ot R13. 10 DYSPHAGIA, UNSPECIFIED 06/03/2017 TREMAYNE VALLES MD Ot Z79. 84 WEB OPERATIONS ADMINISTRATOR (CURRENT) USE OF ORAL HYPOGLYC 06/03/2017 TREMAYNE VALLES MD Ot Z91. 19 PATIENT'S NONCOMPLIANCE W [facility] MEDICAL TR 06/04/2017 JALEEL, MARY STOCK CHASER Ot E03.9 HYPOTHYROIDISM, UNSPECIFIED 06/04/2017 JALEEL, MARY STOCK CHASER Ot E11.9 TYPE 2 DIABETES MELLITUS WITHOUT COMPLIC 06/04/2017 JALEEL, MARY STOCK CHASER Ot E78.00 PURE HYPERCHOLESTEROLEMIA, UNSPECIFIED 06/04/2017 JALEEL, MARY STOCK CHASER Ot F32.9 MAJOR DEPRESSIVE DISORDER, SINGLE EPISOD 06/04/2017 JALEEL, MARY STOCK CHASER Ot G43.909 MIGRAINE, UNSP, NOT INTRACTABLE, WITHOUT 06/04/2017 JALEEL, MARY STOCK CHASER Ot G47.30 SLEEP APNEA, UNSPECIFIED 06/04/2017 JALEEL, MARY STOCK CHASER Ot I50.9 HEART FAILURE, UNSPECIFIED 06/04/2017 JLAEEL, MARY STOCK CHASER Ot J02.9 ACUTE PHARYNGITIS, UNSPECIFIED 06/04/2017 JALEEL, MARY STOCK CHASER Ot J30.9 ALLERGIC RHINITIS, UNSPECIFIED 06/04/2017 JALEEL, MARY STOCK CHASER Ot J44.9 CHRONIC OBSTRUCTIVE PULMONARY DISEASE, U 06/04/2017 JALEEL MARY STOCK CHASER Ot K21.9 GASTRO-ESOPHAGEAL REFLUX DISEASE WITHOUT 06/04/2017 JALEEL, MARY STOCK CHASER Ot Z82.49 FAMILY HX OF ISCHEM HEART DIS AND OTH DI 06/04/2017 JALEEL MARY STOCK CHASER Ot Z87.19 PERSONAL HISTORY OF OTHER DISEASES OF TH 06/04/2017 JALEEL MARY STOCK CHASER Ot Z87.440 PERSONAL HISTORY OF URINARY (TRACT) INFE 06/04/2017 JALEEL, MARY STOCK CHASER Ot Z87.448 PERSONAL HISTORY OF OTHER DISEASES OF UR 06/04/2017 JALEEL, MARY STOCK CHASER Ot Z87.891 PERSONAL HISTORY OF NICOTINE DEPENDENCE 06/04/2017 JALEEL MARY STOCK CHASER Ot Z90.49 ACQUIRED ABSENCE OF OTHER SPECIFIED PART 06/04/2017 JALEEL, MARY STOCK CHASER Ot Z90.89 ACQUIRED ABSENCE OF OTHER ORGANS 08/09/2017 JALEEL, MARY STOCK CHASER Ot E03.9 HYPOTHYROIDISM, UNSPECIFIED 08/09/2017 JALEEL, MARY STOCK CHASER Ot E11.9 TYPE 2 DIABETES MELLITUS WITHOUT COMPLIC 08/09/2017 JALEEL, MARY STOCK CHASER Ot E78.00 PURE HYPERCHOLESTEROLEMIA, UNSPECIFIED 08/09/2017 JALEEL, MARY STOCK CHASER Ot F32.9 MAJOR DEPRESSIVE DISORDER, SINGLE EPISOD 08/09/2017 JALEEL, MARY STOCK CHASER Ot G43.909 MIGRAINE, UNSP, NOT INTRACTABLE, WITHOUT 08/09/2017 JALEEL, MARY STOCK CHASER Ot G47.30 SLEEP APNEA, UNSPECIFIED 08/09/2017 JALEEL, MARY STOCK CHASER Ot I50.9 HEART FAILURE, UNSPECIFIED 08/09/2017 JALEEL MARY STOCK CHASER Ot J02.9 ACUTE PHARYNGITIS, UNSPECIFIED 08/09/2017 JALEEL MARY STOCK CHASER Ot J30.9 ALLERGIC RHINITIS, UNSPECIFIED 08/09/2017 JALEEL, MARY STOCK CHASER Ot J44.9 CHRONIC OBSTRUCTIVE PULMONARY DISEASE, U 08/09/2017 JALEEL, MARY STOCK CHASER Ot K21.9 GASTRO-ESOPHAGEAL REFLUX DISEASE WITHOUT 08/09/2017 JALEEL MARY STOCK CHASER Ot Z82.49 FAMILY HX OF ISCHEM HEART DIS AND OTH DI 08/09/2017 JALEEL, MARY STOCK CHASER Ot Z87.19 PERSONAL HISTORY OF OTHER DISEASES OF TH 08/09/2017 JALEEL, MARY STOCK CHASER Ot Z87.440 PERSONAL HISTORY OF URINARY (TRACT) INFE 08/09/2017 JALEEL MRAY STOCK CHASER Ot Z87.448 PERSONAL HISTORY OF OTHER DISEASES OF UR 08/09/2017 JALEEL, MARY STOCK CHASER Ot Z87.891 PERSONAL HISTORY OF NICOTINE DEPENDENCE 08/09/2017 JALEEL, MARY STOCK CHASER Ot Z90.49 ACQUIRED ABSENCE OF OTHER SPECIFIED PART 08/09/2017 JALEEL, MARY STOCK CHASER Ot Z90.89 ACQUIRED ABSENCE OF OTHER ORGANS 09/26/2017 JALEEL MARY STOCK CHASER Ot E03.9 HYPOTHYROIDISM, UNSPECIFIED 09/26/2017 JALEEL, MARY STOCK CHASER Ot E11.9 TYPE 2 DIABETES MELLITUS WITHOUT COMPLIC 09/26/2017 JALEEL MARY STOCK CHASER Ot E78.00 PURE HYPERCHOLESTEROLEMIA, UNSPECIFIED 09/26/2017 JALEEL, MARY STOCK CHASER Ot F32.9 MAJOR DEPRESSIVE DISORDER, SINGLE EPISOD 09/26/2017 JALEEL, MARY STOCK CHASER Ot G43.909 MIGRAINE, UNSP, NOT INTRACTABLE, WITHOUT 09/26/2017 JALEEL MARY STOCK CHASER Ot G47.30 SLEEP APNEA, UNSPECIFIED 09/26/2017 JALEEL, MARY STOCK CHASER Ot I50.9 HEART FAILURE, UNSPECIFIED 09/26/2017 JALEEL, MARY STOCK CHASER Ot J02.9 ACUTE PHARYNGITIS, UNSPECIFIED 09/26/2017 JALEEL, MARY STOCK CHASER Ot J30.9 ALLERGIC RHINITIS, UNSPECIFIED 09/26/2017 JALEEL, MARY STOCK CHASER Ot J44.9 CHRONIC OBSTRUCTIVE PULMONARY DISEASE, U 09/26/2017 JALEELMARY STOCK CHASER Ot K21.9 GASTRO-ESOPHAGEAL REFLUX DISEASE WITHOUT 09/26/2017 JALEEL MARY STOCK CHASER Ot Z82.49 FAMILY HX OF ISCHEM HEART DIS AND OTH DI 09/26/2017 JALEELMARY Gomez STOCK CHASER Ot Z87.19 PERSONAL HISTORY OF OTHER DISEASES OF TH 09/26/2017 JALEELMARY STOCK CHASER Ot Z87.440 PERSONAL HISTORY OF URINARY (TRACT) INFE 09/26/2017 JALEEL, MARY STOCK CHASER Ot Z87.448 PERSONAL HISTORY OF OTHER DISEASES OF UR 09/26/2017 JALEELMARY Gomez STOCK CHASER Ot Z87.891 PERSONAL HISTORY OF NICOTINE DEPENDENCE 09/26/2017 JALEEL MARY STOCK CHASER Ot Z90.49 ACQUIRED ABSENCE OF OTHER SPECIFIED PART 09/26/2017 JALEEL, MARY STOCK CHASER Ot Z90.89 ACQUIRED ABSENCE OF OTHER ORGANS 01/21/2018 JEANETH DAVIS FACC, SOPHIE FACP CCDS Ot D86.0 SARCOIDOSIS OF LUNG 01/21/2018 JEANETH DAVIS FACC, SOPHIE FACP CCDS Ot E11.9 TYPE 2 DIABETES [...] CCDS Ot D86.0 SARCOIDOSIS OF LUNG 02/10/2018 JEANETH DAVIS FACC, ALI FACP CCDS Ot E11.9 TYPE 2 DIABETES MELLITUS WITHOUT COMPLIC 02/10/2018 JEANETH DAVIS FACC, ALI FACP CCDS Ot E66.2 MORBID (SEVERE) OBESITY WITH ALVEOLAR HY 02/10/2018 JEANETH DAVIS FACC, ALI FACP CCDS Ot 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 02/10/2018 JEANETH DAVIS FACC, ALI FACP CCDS Ot R07.89 OTHER CHEST PAIN 02/10/2018 JEANETH DAVIS FACC, ALI FACP CCDS Ot R09.02 HYPOXEMIA 02/19/2018 JEANETH DAVIS FACC, ALI FACP CCDS Ot D86.0 SARCOIDOSIS OF LUNG 02/19/2018 JEANETH DAVIS FACC, ALI FACP CCDS Ot E11.9 TYPE 2 DIABETES MELLITUS WITHOUT COMPLIC 02/19/2018 JEANETH DAVIS FACC, ALI FACP CCDS Ot E66.2 MORBID (SEVERE) OBESITY WITH ALVEOLAR HY 02/19/2018 JEANETH DAVIS FACC, ALI FACP CCDS Ot 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 02/19/2018 JEANETH DAVIS FACC, ALI FACP CCDS Ot R07.89 OTHER CHEST PAIN 02/19/2018 JEANETH DAVIS FACC, ALI FACP CCDS Ot R09.02 HYPOXEMIA 03/29/2018 KRISTEN JACKSON MD Ot E11. 40 TYPE 2 DIABETES MELLITUS WITH DIABETIC N 03/29/2018 KRISTEN JACKSON MD Ot E66. 01 MORBID (SEVERE) OBESITY DUE TO EXCESS CA 03/29/2018 KRISTEN JACKSON MD Ot E78. 00 PURE HYPERCHOLESTEROLEMIA, UNSPECIFIED 03/29/2018 KRISTEN JACKSON MD Ot F17.210 NICOTINE DEPENDENCE, CIGARETTES, UNCOMPL 03/29/2018 KRISTEN JACKSON MD Ot F32. 9 MAJOR DEPRESSIVE DISORDER, SINGLE EPISOD 03/29/2018 KRISTEN JACKSON MD Ot F41. 9 ANXIETY DISORDER, UNSPECIFIED 03/29/2018 KRISTEN JACKSON MD Ot G43.909 MIGRAINE, UNSP, NOT INTRACTABLE, WITHOUT 03/29/2018 KRISTEN JACKSON MD J Ot I27. 0 PRIMARY PULMONARY HYPERTENSION 03/29/2018 KRISTEN JACKSON MD Ot I50. 9 HEART FAILURE, UNSPECIFIED 03/29/2018 KRISTEN JACKSON MD Ot J44. 9 CHRONIC OBSTRUCTIVE PULMONARY DISEASE, U 03/29/2018 KRISTEN JACKSON MD Ot K21. 9 GASTRO-ESOPHAGEAL REFLUX DISEASE WITHOUT 03/29/2018 KRISTEN JACKSON MD Ot M19. 90 UNSPECIFIED OSTEOARTHRITIS, UNSPECIFIED 03/29/2018 KRISTEN JACKSON MD Ot S62.111A DISP FX OF TRIQUETRUM BONE, RIGHT WRIST, 03/29/2018 KRISTEN JACKSON MD Ot S69.91XA UNSP INJURY OF RIGHT WRIST, HAND AND FIN 03/29/2018 KRISTEN JACKSON MD Ot W18.30XA FALL ON SAME LEVEL, UNSPECIFIED, INITIAL 03/29/2018 KRISTEN JACKSON MD Ot Y93. 01 ACTIVITY, WALKING, MARCHING AND HIKING 03/29/2018 KRISTEN JACKSON MD Ot Z68. 42 BODY MASS INDEX (BMI) 45.0-49.9, ADULT 03/29/2018 KRISTEN JACKSON MD Ot Z88. 1 ALLERGY STATUS TO OTHER ANTIBIOTIC AGENT 03/29/2018 KRISTEN JACKSON MD Ot Z88. 5 ALLERGY STATUS TO NARCOTIC AGENT STATUS 03/29/2018 KRISTEN JACKSON MD Ot Z90. 49 ACQUIRED ABSENCE OF OTHER SPECIFIED PART 03/29/2018 KRISTEN JACKSON MD Ot Z90. 89 ACQUIRED ABSENCE OF OTHER ORGANS 06/10/2018 SARAH KIM MD Ot 276.1 HYPOSMOLALITY 06/10/2018 ZENA UMANZOR STOCK CHASER Ot 625.9 FEM GENITAL SYMPTOMS NOS 06/10/2018 JEANETH LYLESC, ALI FACP CCDS Ot V58.69 OT MED,LT,CURRENT USE 06/10/2018 SARAH KIM MD Ot 729.5 PAIN IN LIMB 06/10/2018 SARAH KIM MD Ot 729.81 SWELLING OF LIMB 06/10/2018 BEV BAIN STOCK CHASER Ot 276.8 HYPOPOTASSEMIA 06/10/2018 BEV BAIN STOCK CHASER Ot 276.8 HYPOPOTASSEMIA 06/10/2018 BAIBEV POE STOCK CHASER Ot V58.69 OT MED,LT,CURRENT USE 06/10/2018 YAMILETH LAURENT MD Ot 429 .3 CARDIOMEGALY 06/10/2018 YAMILETH LAURENT MD Ot 496 [...] 785.6 ENLARGEMENT LYMPH NODES 06/10/2018 JEANETH DAVIS [facility], ALI FACP CCDS Ot 786.05 SHORTNESS OF BREATH 06/10/2018 JEANETH DAVIS [facility], ALI FACP CCDS Ot 786.50 CHEST PAIN NOS 06/10/2018 BAIMA, BEV L STOCK CHASER Ot 278.01 MORBID OBESITY 06/10/2018 BAIMA, BEV L STOCK CHASER Ot 278.03 OBESITY HYPOVENTILATION SYNDROME 06/10/2018 BAIMA, BEV L STOCK CHASER Ot 305.1 TOBACCO USE DISORDER 06/10/2018 BAIMA, BEV L STOCK CHASER Ot 397.0 TRICUSPID VALVE DISEASE 06/10/2018 BAIMA, BEV L STOCK CHASER Ot 416.8 CHR PULMON HEART DIS NEC 06/10/2018 BAIMA, BEV L STOCK CHASER Ot 424.0 MITRAL VALVE DISORDER 06/10/2018 BAIMA, BEV L STOCK CHASER Ot 429.9 HEART DISEASE NOS 06/10/2018 BAIMA, BEV L STOCK CHASER Ot 4 96 CHR AIRWAY OBSTRUCT NEC 06/10/2018 BAIMA, BEV L STOCK CHASER Ot 786.09 RESPIRATORY ABNORM NEC 06/10/2018 BAIMA, BEV L STOCK CHASER Ot 276.8 HYPOPOTASSEMIA 06/10/2018 BAIMA, BEV L STOCK CHASER Ot 276.8 HYPOPOTASSEMIA 06/10/2018 SASHA DAVIS, XIAO A Ot 519.19 OTHER DISEASES OF TRACHEA AND BRONCHUS 06/10/2018 SASHA DAVIS, XIAO A Ot 786 .6 CHEST SWELLING/MASS/LUMP 06/10/2018 ZENA UMANZOR STOCK CHASER Ot 724.4 LUMBOSACRAL NEURITIS NOS 06/10/2018 ZENA UMANZOR STOCK CHASER Ot 285.9 ANEMIA NOS 06/10/2018 Ot 518.89 OTH ER DISEASES OF LUNG, NEC 06/10/2018 Ot 793.11 ANIA ITARY PULMONARY NODULE 06/10/2018 Ot 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 KIDNEY DISEASE, STAGE III (MODER 06/10/2018 IVAN DAVIS, CRISTIAL A Ot 285.9 ANEMIA NOS 06/10/2018 IVAN DAVIS, LANDON A Ot 403.90 HYPTNSV CHR KID DIS, UNSPEC, W CHR KD ST 06/10/2018 LANDON LOVE MD A Ot 585.3 CHRONIC KIDNEY DISEASE, STAGE III (MODER 06/10/2018 CHARLES TEMPLETON STEM CUTTER Ot 135 SARCOIDOSIS 06/10/2018 CHARLES TEMPLETON STEM CUTTER Ot 305.1 TOBACCO USE DISORDER 06/10/2018 CHARLES TEMPLETON STEM CUTTER Ot 327.23 OBSTRUCTIVE SLEEP APNEA (ADULT) (PEDIATR 06/10/2018 CHARLES TEMPLETON STEM CUTTER Ot 416.8 CHR PULMON HEART DIS NEC 06/10/2018 CHARLES TEMPLETON STEM CUTTER Ot 493.90 ASTHMA, UNSPECIFIED 06/10/2018 CHARLES TEMPLETON STEM CUTTER Ot 786.05 SHORTNESS OF BREATH 06/10/2018 CHARLES TEMPLETON STEM CUTTER Ot 786.09 RESPIRATORY ABNORM NEC 06/10/2018 TIPPING DO, ARNAV C Ot 244 .9 HYPOTHYROIDISM NOS 06/10/2018 TIPPING DO, ARNAV C Ot 250.00 DIAB CALIN WO COMPL, TYPE II OR UNSPEC TY 06/10/2018 TIPPING DO, ARNAV C Ot 285 .9 ANEMIA NOS 06/10/2018 TIPPING DO, ARNAV C Ot 403.90 HYPTNSV CHR KID DIS, UNSPEC, W CHR KD ST 06/10/2018 TIPPING DO, ARNAV C Ot 585 .9 CHRONIC KIDNEY DISEASE, UNSPECIFIED 06/10/2018 TIPPING DO, ARNAV C Ot 799.02 HYPOXEMIA 06/10/2018 LANDON LOVE MD Ot 250.00 DIAB CALIN WO COMPL, TYPE II OR UNSPEC TY 06/10/2018 LANDON LOVE MD Ot 428.32 CHRONIC DIASTOLIC HRT FAILURE 06/10/2018 LANDON LOVE MD Ot 496 CHR AIRWAY OBSTRUCT NEC 06/10/2018 Ot E11.9 TYPE 2 DIABETES MELLITUS WITHOUT COMPLIC 06/10/2018 Ot E78.5 HYPE RLIPIDEMIA, UNSPECIFIED 06/10/2018 Ot I12.9 HYPE RTENSIVE CHRONIC KIDNEY DISEASE W ST 06/10/2018 Ot N18.9 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 YVETTE KIDNEY DISEASE, UNSPECIFIED 06/10/2018 Ot R09.02 HYP OXEMIA 06/10/2018 PASCUAL JORGENSEN DO Ot E66. 01 MORBID (SEVERE) OBESITY DUE TO EXCESS CA 06/10/2018 PASCUAL JORGENSEN DO Ot G47. 33 OBSTRUCTIVE SLEEP APNEA (ADULT) (PEDIATR 06/10/2018 PASCUAL JORGENSEN DO Ot J45.909 UNSPECIFIED ASTHMA, UNCOMPLICATED 06/10/2018 PASCUAL JORGENSEN DO Ot R59. 0 LOCALIZED ENLARGED LYMPH NODES 06/10/2018 BAIMA, BEV L STOCK CHASER Ot E07.9 DISORDER OF THYROID, UNSPECIFIED 06/10/2018 BAIMA, BEV L STOCK CHASER Ot 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 TRICUSPID INSUFFICIENCY 06/10/2018 BAIMA, BEV L STOCK CHASER Ot R00.2 PALPITATIONS 06/10/2018 BAIMA, BEV L STOCK CHASER Ot R07.9 CHEST PAIN, UNSPECIFIED 06/10/2018 Ot E07.9 DISO RDER OF THYROID, UNSPECIFIED 06/10/2018 Ot I07.1 RHEU MATIC TRICUSPID INSUFFICIENCY 06/10/2018 Ot R00.2 PALP ITATIONS 06/10/2018 Ot R07.9 CHES T PAIN, UNSPECIFIED 06/10/2018 BAIMA, BEV L STOCK CHASER Ot E07.9 DISORDER OF THYROID, UNSPECIFIED 06/10/2018 BAIMA, BEV L STOCK CHASER Ot 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 TRICUSPID INSUFFICIENCY 06/10/2018 BAIMA, BEV L STOCK CHASER Ot R00.2 PALPITATIONS 06/10/2018 BAIMA, BEV L STOCK CHASER Ot R07.9 CHEST PAIN, UNSPECIFIED 06/10/2018 TIPPING DO, ARNAV C Ot D50 .9 IRON DEFICIENCY ANEMIA, UNSPECIFIED 06/10/2018 TIPPING DO, ARNAV C Ot E11 .9 TYPE 2 DIABETES MELLITUS WITHOUT COMPLIC 06/10/2018 TIPPING DO, ARNAV C Ot E11 .9 TYPE 2 DIABETES MELLITUS WITHOUT COMPLIC 06/10/2018 TIPPING DO, ARNAV C Ot E78 .2 MIXED HYPERLIPIDEMIA 06/10/2018 TIPPING DO, ARNAV C Ot N18 .3 CHRONIC KIDNEY DISEASE, STAGE 3 (MODERAT 06/10/2018 TIPPING DO, ARNAV C Ot D50 .9 IRON DEFICIENCY ANEMIA, UNSPECIFIED 06/10/2018 TIPPING DO, ARNAV C Ot E78 .5 HYPERLIPIDEMIA, UNSPECIFIED 06/10/2018 JEANETH DAVIS FACC, SOPHIE GODDARD CCDS Ot D86.0 SARCOIDOSIS OF LUNG 06/10/2018 JEANETH DAVIS FACC, SOPHIE LYLESP CCDS Ot E11.9 TYPE 2 DIABETES MELLITUS WITHOUT COMPLIC 06/10/2018 JEANETH DAVIS FACC, SOPHIE GODDARD CCDS Ot E66.2 MORBID (SEVERE) OBESITY WITH ALVEOLAR HY 06/10/2018 JEANETH DAVIS FACC, ALI FACP CCDS Ot 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 06/10/2018 JEANETH DAVIS FACC, ALI FACP CCDS Ot R07.89 OTHER CHEST PAIN 06/10/2018 JEANETH DAVIS FACC, ALI FACP CCDS Ot R09.02 HYPOXEMIA 06/16/2018 SARAH KIM MD Ot 276.1 HYPOSMOLALITY 06/16/2018 ZENA UMANZOR STOCK CHASER Ot 625.9 FEM GENITAL SYMPTOMS NOS 06/16/2018 JEANETH DAVIS FACC, ALI FACP CCDS Ot V58.69 OTH MED,LT,CURRENT USE 06/16/2018 SARAH KIM MD Ot 729.5 PAIN IN LIMB 06/16/2018 SARAH KIM MD Ot 729.81 SWELLING OF LIMB 06/16/2018 BEV BAIN STOCK CHASER Ot 276.8 HYPOPOTASSEMIA 06/16/2018 ODELL BEV L STOCK CHASER Ot 276.8 HYPOPOTASSEMIA 06/16/2018 BEV BAIN L STOCK CHASER Ot V58.69 OTH MED,LT,CURRENT USE 06/16/2018 YAMILETH LAURENT MD Ot 429 .3 CARDIOMEGALY 06/16/2018 YAMILETH LAURENT MD Ot 496 CHR AIRWAY OBSTRUCT NEC 06/16/2018 JEANETH DAVIS FACC, ALI FACP CCDS Ot 416.8 CHR PULMON HEART DIS NEC 06/16/2018 JEANETH DAVIS FACC, ALI FACP CCDS Ot 427.89 CARDIAC DYSRHYTHMIAS NEC 06/16/2018 JEANETH DAVIS FACC, ALI FACP CCDS Ot 496 CHR AIRWAY OBSTRUCT NEC 06/16/2018 JEANETH DAVIS FACC, ALI FACP CCDS Ot 785.6 ENLARGEMENT LYMPH NODES 06/16/2018 JEANETH DAVIS FACC, ALI FACP CCDS Ot 786.05 SHORTNESS OF BREATH 06/16/2018 JEANETH DAVIS FACC, ALI FACP CCDS Ot 786.50 CHEST PAIN NOS 06/16/2018 BEV BAIN L STOCK CHASER Ot 278.01 MORBID OBESITY 06/16/2018 ODELL BEV L STOCK CHASER Ot 278.03 OBESITY HYPOVENTILATION SYNDROME 06/16/2018 ODELL BEV L STOCK CHASER Ot 305.1 TOBACCO USE DISORDER 06/16/2018 BAIBEV POE L STOCK CHASER Ot 397.0 TRICUSPID VALVE DISEASE 06/16/2018 BAIMA, BVE L STOCK CHASER Ot 416.8 CHR PULMON HEART DIS NEC 06/16/2018 BAILUI, BEV L STOCK CHASER Ot 424.0 MITRAL VALVE DISORDER 06/16/2018 BAIMA, BEV L STOCK CHASER Ot 429.9 HEART DISEASE NOS 06/16/2018 BAILUI BEV L STOCK CHASER Ot 4 96 CHR AIRWAY OBSTRUCT NEC 06/16/2018 BAILUI, BEV L STOCK CHASER Ot 786.09 RESPIRATORY ABNORM NEC 06/16/2018 BAILUI, BEV L STOCK CHASER Ot 276.8 HYPOPOTASSEMIA 06/16/2018 BAIMA, BEV L STOCK CHASER Ot 276.8 HYPOPOTASSEMIA 06/16/2018 SASHA DAVIS, XIAO A Ot 519.19 OTHER DISEASES OF TRACHEA AND BRONCHUS 06/16/2018 SASHA DAVIS, XIAO A Ot 786 .6 CHEST SWELLING/MASS/LUMP 06/16/2018 ZENA UMANZOR STOCK CHASER Ot 724.4 LUMBOSACRAL NEURITIS NOS 06/16/2018 ZENA UMANZOR STOCK CHASER Ot 285.9 ANEMIA NOS 06/16/2018 Ot 518.89 OTH ER DISEASES OF LUNG, NEC 06/16/2018 Ot 793.11 ANIA ITARY PULMONARY NODULE 06/16/2018 Ot 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 KIDNEY DISEASE, STAGE III (MODER 06/16/2018 IVAN DAVIS, TALAL A Ot 285.9 ANEMIA NOS 06/16/2018 IVAN DAVIS, TALAL A Ot 403.90 HYPTNSV CHR KID DIS, UNSPEC, W CHR KD ST 06/16/2018 IVAN DAVIS, TALAL A Ot 585.3 CHRONIC KIDNEY DISEASE, STAGE III (MODER 06/16/2018 CHARLES TEMPLETON STEM CUTTER Ot 135 SARCOIDOSIS 06/16/2018 CHARLES TEMPLETON STEM CUTTER Ot 305.1 TOBACCO USE DISORDER 06/16/2018 CHARLES TEMPLETON STEM CUTTER Ot 327.23 OBSTRUCTIVE SLEEP APNEA (ADULT) (PEDIATR 06/16/2018 CHARLES TEMPLETON STEM CUTTER Ot 416.8 CHR PULMON HEART DIS NEC 06/16/2018 CHARLES TEMPLETON STEM CUTTER Ot 493.90 ASTHMA, UNSPECIFIED 06/16/2018 CHARLES TEMPLETON APRN Ot 786.05 SHORTNESS OF BREATH 06/16/2018 CHARLES TEMPLETON APRN Ot 786.09 RESPIRATORY ABNORM NEC 06/16/2018 TIPPING DO, ARNAV C Ot 244 .9 HYPOTHYROIDISM NOS 06/16/2018 TIPPING DO, ARNAV C Ot 250.00 DIAB CALIN WO COMPL, TYPE II OR UNSPEC TY 06/16/2018 TIPPING DO, ARNAV C Ot 285 .9 ANEMIA NOS 06/16/2018 TIPPING DO, ARNAV C Ot 403.90 HYPTNSV CHR KID DIS, UNSPEC, W CHR KD ST 06/16/2018 TIPPING DO, ARNAV C Ot 585 .9 CHRONIC KIDNEY DISEASE, UNSPECIFIED 06/16/2018 TIPPING DO, ARNAV C Ot 799.02 HYPOXEMIA 06/16/2018 IVAN DAVIS, LANDON Mays Ot 250.00 DIAB CALIN WO COMPL, TYPE II OR UNSPEC TY 06/16/2018 IVAN DAVIS, LANDON Mays Ot 428.32 CHRONIC DIASTOLIC HRT FAILURE 06/16/2018 IVAN DAVIS, LANDON Mays Ot 496 CHR AIRWAY OBSTRUCT NEC 06/16/2018 Ot E11.9 TYPE 2 DIABETES MELLITUS WITHOUT COMPLIC 06/16/2018 Ot E78.5 HYPE RLIPIDEMIA, UNSPECIFIED 06/16/2018 Ot I12.9 HYPE RTENSIVE CHRONIC KIDNEY DISEASE W ST 06/16/2018 Ot 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 01 MORBID (SEVERE) OBESITY DUE TO EXCESS CA 06/16/2018 PASCUAL JORGENSEN DO Ot G47. 33 OBSTRUCTIVE SLEEP APNEA (ADULT) (PEDIATR 06/16/2018 PASCUAL JORGENSEN DO Ot J45.909 UNSPECIFIED ASTHMA, UNCOMPLICATED 06/16/2018 PASCUAL JORGENSEN DO Ot R59. 0 LOCALIZED ENLARGED LYMPH NODES 06/16/2018 BEV BAIN STOCK CHASER Ot E07.9 DISORDER OF THYROID, UNSPECIFIED 06/16/2018 BEV BAIN STOCK CHASER Ot 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 TRICUSPID INSUFFICIENCY 06/16/2018 BEV BAIN STOCK CHASER Ot R00.2 PALPITATIONS 06/16/2018 BEV BAIN STOCK CHASER Ot R07.9 CHEST PAIN, UNSPECIFIED 06/16/2018 Ot E07.9 DISO RDER OF THYROID, UNSPECIFIED 06/16/2018 Ot I07.1 RHEU MATIC TRICUSPID INSUFFICIENCY 06/16/2018 Ot R00.2 PALP ITATIONS 06/16/2018 Ot R07.9 CHES T PAIN, UNSPECIFIED 06/16/2018 BAIBEV POE STOCK CHASER Ot E07.9 DISORDER OF THYROID, UNSPECIFIED 06/16/2018 BEV BAIN STOCK CHASER Ot 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 TRICUSPID INSUFFICIENCY 06/16/2018 BAIMABEV L STOCK CHASER Ot R00.2 PALPITATIONS 06/16/2018 BAIMABEV STOCK CHASER Ot R07.9 CHEST PAIN, UNSPECIFIED 06/16/2018 TIPPING DO, ARNAV C Ot D50 .9 IRON DEFICIENCY ANEMIA, UNSPECIFIED 06/16/2018 TIPPING DO, ARNAV C Ot E11 .9 TYPE 2 DIABETES MELLITUS WITHOUT COMPLIC 06/16/2018 TIPPING DO, ARNAV C Ot E11 .9 TYPE 2 DIABETES MELLITUS WITHOUT COMPLIC 06/16/2018 TIPPING DO, ARNAV C Ot E78 .2 MIXED HYPERLIPIDEMIA 06/16/2018 TIPPING DO, ARNAV C Ot N18 .3 CHRONIC KIDNEY DISEASE, STAGE 3 (MODERAT 06/16/2018 TIPPING DO, ARNAV C Ot D50 .9 IRON DEFICIENCY ANEMIA, UNSPECIFIED 06/16/2018 TIPPING DO, ARNAV C Ot E78 .5 HYPERLIPIDEMIA, UNSPECIFIED 06/16/2018 JEANETH DAVIS FACC, SOPHIE FACP CCDS Ot D86.0 SARCOIDOSIS OF LUNG 06/16/2018 JEANETH DAVIS FACC, ALI FACP CCDS Ot E11.9 TYPE 2 DIABETES MELLITUS WITHOUT COMPLIC 06/16/2018 JEANETH DAVIS FACC, ALI FACP CCDS Ot E66.2 MORBID (SEVERE) OBESITY WITH ALVEOLAR HY 06/16/2018 JEANETH DAVIS FACC, ALI FACP CCDS Ot 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 06/16/2018 JEANETH DAVIS FACC, SOPHIE FACP CCDS Ot R07.89 OTHER CHEST PAIN 06/16/2018 JEANETH DAVIS FACC, ALI FACP CCDS Ot R09.02 HYPOXEMIA 06/19/2018 CHARLES TEMPLETON APRN Ot E66.2 MORBID (SEVERE) OBESITY WITH ALVEOLAR HY 06/19/2018 YOKASTA, CHARLES E STEM CUTTER Ot R06.02 SHORTNESS OF BREATH 06/19/2018 YOKASTAMOOK MONROEINE Jason STEM CUTTER Ot R09.02 HYPOXEMIA 06/19/2018 YOKASTAMOOK MONROEINE Jason STEM CUTTER Ot R91.1 SOLITARY PULMONARY NODULE 06/19/2018 YOKASTAMOOK MONROEINE Jason STEM CUTTER Ot Z72.0 TOBACCO USE 06/30/2018 YOKASTAMOOK MONROEINE Jason STEM CUTTER Ot E66.2 MORBID (SEVERE) OBESITY WITH ALVEOLAR HY 06/30/2018 YOKASTAMOOK MONROEINE E STEM CUTTER Ot R06.02 SHORTNESS OF BREATH 06/30/2018 YOKASTAMOOK MONROEINE Jason STEM CUTTER Ot R09.02 HYPOXEMIA 06/30/2018 YOKASTAMOOK MONROEINE Jason STEM CUTTER Ot R91.1 SOLITARY PULMONARY NODULE 06/30/2018 YOKASTACHARLES MONROE STEM CUTTER Ot Z72.0 TOBACCO USE 07/13/2018 YOKASTAMOOK MONROEINE Jason STEM CUTTER Ot E66.2 MORBID (SEVERE) OBESITY WITH ALVEOLAR HY 07/13/2018 YOKASTACHARLES MONROE STEM CUTTER Ot R06.02 SHORTNESS OF BREATH 07/13/2018 YOKASTACHARLES MONROE STEM CUTTER Ot R09.02 HYPOXEMIA 07/13/2018 CHARLES TEMPLETON STEM CUTTER Ot R91.1 SOLITARY PULMONARY NODULE 07/13/2018 CHARLES TEMPLETON STEM CUTTER Ot Z72.0 TOBACCO USE 08/18/2018 SARAH KIM MD Ot 276.1 HYPOSMOLALITY 08/18/2018 ZENA UMANZOR STOCK CHASER Ot 625.9 FEM GENITAL SYMPTOMS NOS 08/18/2018 JEANETH DAVIS FAC, SOPHIE GODDARD CCDS Ot V58.69 OTH MED,LT,CURRENT USE 08/18/2018 SARAH KIM MD Ot 729.5 PAIN IN LIMB 08/18/2018 SARAH KIM MD Ot 729.81 SWELLING OF LIMB 08/18/2018 BEV BAIN STOCK CHASER Ot 276.8 HYPOPOTASSEMIA 08/18/2018 BEV BAIN STOCK CHASER Ot 276.8 HYPOPOTASSEMIA 08/18/2018 BEV BAIN STOCK CHASER Ot V58.69 OTH MED,LT,CURRENT USE 08/18/2018 YAMILETH LAURENT MD Ot 429 .3 CARDIOMEGALY 08/18/2018 YAMILETH LAURENT MD Ot 496 CHR AIRWAY OBSTRUCT NEC 08/18/2018 JEANETH DAVIS [facility], ALI FACP CCDS Ot 416.8 CHR PULMON HEART DIS NEC 08/18/2018 JEANETH LYLES, ALI FACP CCDS Ot 427.89 CARDIAC DYSRHYTHMIAS NEC 08/18/2018 JEANETH DAVIS FACC, ALI FACP CCDS Ot 496 CHR AIRWAY OBSTRUCT NEC 08/18/2018 JEANETH LYLES, ALI FACP CCDS Ot 785.6 ENLARGEMENT LYMPH NODES 08/18/2018 JEANETH DAVIS [facility], ALI FACP CCDS Ot 786.05 SHORTNESS OF BREATH 08/18/2018 JEANETH DAVIS [facility], ALI FACP CCDS Ot 786.50 CHEST PAIN NOS 08/18/2018 BAIMA, BEV L STOCK CHASER Ot 278.01 MORBID OBESITY 08/18/2018 BAIMA, BEV L STOCK CHASER Ot 278.03 OBESITY HYPOVENTILATION SYNDROME 08/18/2018 BAIMA, BEV L STOCK CHASER Ot 305.1 TOBACCO USE DISORDER 08/18/2018 BAIMA, BEV L STOCK CHASER Ot 397.0 TRICUSPID VALVE DISEASE 08/18/2018 BAIMA, BEV L STOCK CHASER Ot 416.8 CHR PULMON HEART DIS NEC 08/18/2018 BAIMA, BEV L STOCK CHASER Ot 424.0 MITRAL VALVE DISORDER 08/18/2018 BAIMA, BEV L STOCK CHASER Ot 429.9 HEART DISEASE NOS 08/18/2018 BAIMA, BEV L STOCK CHASER Ot 4 96 CHR AIRWAY OBSTRUCT NEC 08/18/2018 BAIMA, BEV L STOCK CHASER Ot 786.09 RESPIRATORY ABNORM NEC 08/18/2018 BAIMA, BEV L STOCK CHASER Ot 276.8 HYPOPOTASSEMIA 08/18/2018 BAIMA, BEV L STOCK CHASER Ot 276.8 HYPOPOTASSEMIA 08/18/2018 SASHA DAVIS, XIAO A Ot 519.19 OTHER DISEASES OF TRACHEA AND BRONCHUS 08/18/2018 SASHA DAVIS, XIAO A Ot 786 .6 CHEST SWELLING/MASS/LUMP 08/18/2018 ZENA UMANZOR STOCK CHASER Ot 724.4 LUMBOSACRAL NEURITIS NOS 08/18/2018 ZENA UMANZOR STOCK CHASER Ot 285.9 ANEMIA NOS 08/18/2018 Ot 518.89 OTH ER DISEASES OF LUNG, NEC 08/18/2018 Ot 793.11 ANIA ITARY PULMONARY NODULE 08/18/2018 Ot 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 KIDNEY DISEASE, STAGE III (MODER 08/18/2018 LANDON LOVE MD Ot 285.9 ANEMIA NOS 08/18/2018 LANDON LOVE MD Ot 403.90 HYPTNSV CHR KID DIS, UNSPEC, W CHR KD ST 08/18/2018 LANDON LOVE MD Ot 585.3 CHRONIC KIDNEY DISEASE, STAGE III (MODER 08/18/2018 CHARLES TEMPLETON STEM CUTTER Ot 135 SARCOIDOSIS 08/18/2018 CHARLES TEMPLETON STEM CUTTER Ot 305.1 TOBACCO USE DISORDER 08/18/2018 CHARLES TEMPLETON E STEM CUTTER Ot 327.23 OBSTRUCTIVE SLEEP APNEA (ADULT) (PEDIATR 08/18/2018 CHARLES TEMPLETON STEM CUTTER Ot 416.8 CHR PULMON HEART DIS NEC 08/18/2018 CHARLES TEMPLETON STEM CUTTER Ot 493.90 ASTHMA, UNSPECIFIED 08/18/2018 CHARLES TEMPLETON STEM CUTTER Ot 786.05 SHORTNESS OF BREATH 08/18/2018 CHARLES TEMPLETON STEM CUTTER Ot 786.09 RESPIRATORY ABNORM NEC 08/18/2018 TIPPING DO, ARNAV C Ot 244 .9 HYPOTHYROIDISM NOS 08/18/2018 TIPPING DO, ARNAV C Ot 250.00 DIAB CALIN WO COMPL, TYPE II OR UNSPEC TY 08/18/2018 TIPPING DO, ARNAV C Ot 285 .9 ANEMIA NOS 08/18/2018 TIPPING DO, ARNAV C Ot 403.90 HYPTNSV CHR KID DIS, UNSPEC, W CHR KD ST 08/18/2018 TIPPING DO, ARNAV C Ot 585 .9 CHRONIC KIDNEY DISEASE, UNSPECIFIED 08/18/2018 TIPPING DO, ARNAV C Ot 799.02 HYPOXEMIA 08/18/2018 LANDON LOVE MD Ot 250.00 DIAB CALIN WO COMPL, TYPE II OR UNSPEC TY 08/18/2018 LANDON LOVE MD Ot 428.32 CHRONIC DIASTOLIC HRT FAILURE 08/18/2018 LANDON LOVE MD Ot 496 CHR AIRWAY OBSTRUCT NEC 08/18/2018 Ot E11.9 TYPE 2 DIABETES MELLITUS WITHOUT COMPLIC 08/18/2018 Ot E78.5 HYPE RLIPIDEMIA, UNSPECIFIED 08/18/2018 Ot I12.9 HYPE RTENSIVE CHRONIC KIDNEY DISEASE W ST 08/18/2018 Ot 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 01 MORBID (SEVERE) OBESITY DUE TO EXCESS CA 08/18/2018 PASCUAL JORGENSEN DO Ot G47. 33 OBSTRUCTIVE SLEEP APNEA (ADULT) (PEDIATR 08/18/2018 JOSLYN CASE PASCUAL Ain Ot J45.909 UNSPECIFIED ASTHMA, UNCOMPLICATED 08/18/2018 PASCUAL JORGENSEN DO Ot R59. 0 LOCALIZED ENLARGED LYMPH NODES 08/18/2018 ODELL BEV L STOCK CHASER Ot E07.9 DISORDER OF THYROID, UNSPECIFIED 08/18/2018 DARIUSMA, BEV L STOCK CHASER Ot 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 TRICUSPID INSUFFICIENCY 08/18/2018 DARIUSMA, BEV L STOCK CHASER Ot R00.2 PALPITATIONS 08/18/2018 BAIMA, BEV L STOCK CHASER Ot R07.9 CHEST PAIN, UNSPECIFIED 08/18/2018 Ot E07.9 DISO RDER OF THYROID, UNSPECIFIED 08/18/2018 Ot I07.1 RHEU MATIC TRICUSPID INSUFFICIENCY 08/18/2018 Ot R00.2 PALP ITATIONS 08/18/2018 Ot R07.9 CHES T PAIN, UNSPECIFIED 08/18/2018 BAIMA, BEV L STOCK CHASER Ot E07.9 DISORDER OF THYROID, UNSPECIFIED 08/18/2018 BAIMA, BEV L STOCK CHASER Ot 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 TRICUSPID INSUFFICIENCY 08/18/2018 DARIUSMA, BEV L STOCK CHASER Ot R00.2 PALPITATIONS 08/18/2018 BAIMA, BEV L STOCK CHASER Ot R07.9 CHEST PAIN, UNSPECIFIED 08/18/2018 TIPPING DO ARNAV C Ot D50 .9 IRON DEFICIENCY ANEMIA, UNSPECIFIED 08/18/2018 TIPPING DO, ARNAV C Ot E11 .9 TYPE 2 DIABETES MELLITUS WITHOUT COMPLIC 08/18/2018 TIPPING DO ARNAV C Ot E11 .9 TYPE 2 DIABETES MELLITUS WITHOUT COMPLIC 08/18/2018 VLADPING DO ARNAV C Ot E78 .2 MIXED HYPERLIPIDEMIA 08/18/2018 TIPPING DO, ARNAV C Ot N18 .3 CHRONIC KIDNEY DISEASE, STAGE 3 (MODERAT 08/18/2018 REMY DO ARNAV C Ot D50 .9 IRON DEFICIENCY ANEMIA, UNSPECIFIED 08/18/2018 REMY CASE ARNAV C Ot E78 .5 HYPERLIPIDEMIA, UNSPECIFIED 08/18/2018 JEANETH DAVIS FACC, ALI FACP CCDS Ot D86.0 SARCOIDOSIS OF LUNG 08/18/2018 JEANETH DAVIS FACC, ALI FACP CCDS Ot E11.9 TYPE 2 DIABETES MELLITUS WITHOUT COMPLIC 08/18/2018 JEANETH DAVIS FACC, ALI FACP CCDS Ot E66.2 MORBID (SEVERE) OBESITY WITH ALVEOLAR HY 08/18/2018 JEANETH DAVIS FACC, ALI FACP CCDS Ot 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 08/18/2018 JEANETH DAVIS FACC, ALI FACP CCDS Ot R07.89 OTHER CHEST PAIN 08/18/2018 JEANETH DAVIS FACC, ALI FACP CCDS Ot R09.02 HYPOXEMIA 08/18/2018 MOOK TEMPLETONINE E STEM CUTTER Ot E66.2 MORBID (SEVERE) OBESITY WITH ALVEOLAR HY 08/18/2018 MOOK TEMPLETONINE E STEM CUTTER Ot R06.02 SHORTNESS OF BREATH 08/18/2018 MOOK TEMPLETONINE E STEM CUTTER Ot R09.02 HYPOXEMIA 08/18/2018 MOOK TEMPLETONINE Jason STEM CUTTER Ot R91.1 SOLITARY PULMONARY NODULE 08/18/2018 CHARLES TEMPLETON STEM CUTTER Ot Z72.0 TOBACCO USE 09/03/2018 MOOK TEMPLETONINE E STEM CUTTER Ot E66.2 MORBID (SEVERE) OBESITY WITH ALVEOLAR HY 09/03/2018 MOOK TEMPLETONINE E STEM CUTTER Ot R06.02 SHORTNESS OF BREATH 09/03/2018 MOOK TEMPLETONINE E STEM CUTTER Ot R09.02 HYPOXEMIA 09/03/2018 MOOK TEMPLETONINE Jason STEM CUTTER Ot R91.1 SOLITARY PULMONARY NODULE 09/03/2018 CHARLES TEMPLETON STEM CUTTER Ot Z72.0 TOBACCO USE 10/03/2018 MOOK TEMPLETONINE E STEM CUTTER Ot E66.2 MORBID (SEVERE) OBESITY WITH ALVEOLAR HY 10/03/2018 MOOK TEMPLETONINE Jason STEM CUTTER Ot R06.02 SHORTNESS OF BREATH 10/03/2018 MOOK TEMPLETONINE E STEM CUTTER Ot R09.02 HYPOXEMIA 10/03/2018 MOOK TEMPLETONINE E STEM CUTTER Ot R91.1 SOLITARY PULMONARY NODULE 10/03/2018 MOOK TEMPLETONINE Jason STEM CUTTER Ot Z72.0 TOBACCO USE 11/11/2018 KRISTEN JACKSON MD Ot E11. 40 TYPE 2 DIABETES MELLITUS WITH DIABETIC N 11/11/2018 KRISTEN JACKSON MD Ot E66. 01 MORBID (SEVERE) OBESITY DUE TO EXCESS CA 11/11/2018 KRISTEN JACKSON MD Ot E78. 00 PURE HYPERCHOLESTEROLEMIA, UNSPECIFIED 11/11/2018 KRISTEN JACKSON MD Ot F32. 9 MAJOR DEPRESSIVE DISORDER, SINGLE EPISOD 11/11/2018 KRISTEN JACKSON MD Ot F41. 9 ANXIETY DISORDER, UNSPECIFIED 11/11/2018 KRISTEN JACKSON MD Ot G43.909 MIGRAINE, UNSP, NOT INTRACTABLE, WITHOUT 11/11/2018 KRISTEN JACKSON MD Ot G47. 30 SLEEP APNEA, UNSPECIFIED 11/11/2018 KRISTEN JACKSON MD Ot I27. 0 PRIMARY PULMONARY HYPERTENSION 11/11/2018 KRISTEN JACKSON MD Ot I50. 9 HEART FAILURE, UNSPECIFIED 11/11/2018 KRISTEN JACKSON MD Ot J44. 9 CHRONIC OBSTRUCTIVE PULMONARY DISEASE, U 11/11/2018 KRISTEN JACKSON MD Ot K21. 9 GASTRO-ESOPHAGEAL REFLUX DISEASE WITHOUT 11/11/2018 KRISTEN JACKSON MD Ot M54. 42 LUMBAGO WITH SCIATICA, LEFT SIDE 11/11/2018 KRISTEN JACKSON MD Ot M54. 5 LOW BACK PAIN 11/11/2018 KRISTEN JACKSON MD Ot Z68. 42 BODY MASS INDEX (BMI) 45.0-49.9, ADULT 11/11/2018 KRISTEN JACKSON MD Ot Z77. 22 CNTCT W AND EXPSR TO ENVIRON TOBACCO SMO 11/11/2018 KRISTEN JACKSON MD Ot Z82. 49 FAMILY HX OF ISCHEM HEART DIS AND OTH DI 11/11/2018 KRISTEN JACKSON MD Ot Z87. 19 PERSONAL HISTORY OF OTHER DISEASES OF TH 11/11/2018 KRISTEN JACKSON MD Ot Z87.440 PERSONAL HISTORY OF URINARY (TRACT) INFE 11/11/2018 KRISTEN JACKSON MD Ot Z90. 49 ACQUIRED ABSENCE OF OTHER SPECIFIED PART 11/11/2018 KRISTEN JACKSON MD Ot Z90. 89 ACQUIRED ABSENCE OF OTHER ORGANS 11/11/2018 KRISTEN JACKSON MD Ot Z98.890 OTHER SPECIFIED POSTPROCEDURAL STATES 11/11/2018 ZENA UMANZOR STOCK CHASER Ot 625.9 FEM GENITAL SYMPTOMS NOS 11/11/2018 JEANETH DAVIS FACC, ALI FACP CCDS Ot V58.69 OTH MED,LT,CURRENT USE 11/11/2018 JUDY DAVIS, SARAH Law Ot 729.5 PAIN IN LIMB 11/11/2018 JUDY DAVIS, SARAH Law Ot 729.81 SWELLING OF LIMB 11/11/2018 BAIMA BEV L STOCK CHASER Ot 276.8 HYPOPOTASSEMIA 11/11/2018 BAIMA, BEV L STOCK CHASER Ot 276.8 HYPOPOTASSEMIA 11/11/2018 BAIMA BEV L STOCK CHASER Ot V58.69 OTH MED,LT,CURRENT USE 11/11/2018 ANASTASIIA DAVIS, YAMILETH Cruz Ot 429 .3 CARDIOMEGALY 11/11/2018 YAMILETH LAURENT MD Ot 496 CHR AIRWAY OBSTRUCT NEC 11/11/2018 JEANETH DAVIS FACC, ALI FACP CCDS Ot 416.8 CHR PULMON HEART DIS NEC 11/11/2018 JEANETH LYLESC, ALI FACP CCDS Ot 427.89 CARDIAC DYSRHYTHMIAS NEC 11/11/2018 JEANETH DAVIS FACC, ALI FACP CCDS Ot 496 CHR AIRWAY OBSTRUCT NEC 11/11/2018 JEANETH DAVIS FACC, ALI FACP CCDS Ot 785.6 ENLARGEMENT LYMPH NODES 11/11/2018 JEANETH DAVIS FACC, ALI FACP CCDS Ot 786.05 SHORTNESS OF BREATH 11/11/2018 JEANETH DAVIS FACC, ALI FACP CCDS Ot 786.50 CHEST PAIN NOS 11/11/2018 DARIUSMA, BEV L STOCK CHASER Ot 278.01 MORBID OBESITY 11/11/2018 DARIUSMA, BEV L STOCK CHASER Ot 278.03 OBESITY HYPOVENTILATION SYNDROME 11/11/2018 BAIMA, BEV L STOCK CHASER Ot 305.1 TOBACCO USE DISORDER 11/11/2018 BAIMA, BEV L STOCK CHASER Ot 397.0 TRICUSPID VALVE DISEASE 11/11/2018 BAIMA, BEV L STOCK CHASER Ot 416.8 CHR PULMON HEART DIS NEC 11/11/2018 BAILUI, BEV L STOCK CHASER Ot 424.0 MITRAL VALVE DISORDER 11/11/2018 DARIUSMA BEV L STOCK CHASER Ot 429.9 HEART DISEASE NOS 11/11/2018 BEV BAIN L STOCK CHASER Ot 4 96 CHR AIRWAY OBSTRUCT NEC 11/11/2018 DARIUSHÉCTOR POEHER L STOCK CHASER Ot 786.09 RESPIRATORY ABNORM NEC 11/11/2018 BAILUI BEV L STOCK CHASER Ot 276.8 HYPOPOTASSEMIA 11/11/2018 DARIUSLUI BEV L STOCK CHASER Ot 276.8 HYPOPOTASSEMIA 11/11/2018 SASHA DAVIS, XIAO A Ot 519.19 OTHER DISEASES OF TRACHEA AND BRONCHUS 11/11/2018 SASHA DAVIS, XIAO A Ot 786 .6 CHEST SWELLING/MASS/LUMP 11/11/2018 ZENA UMANZOR STOCK CHASER Ot 724.4 LUMBOSACRAL NEURITIS NOS 11/11/2018 ZENA UMANZOR STOCK CHASER Ot 285.9 ANEMIA NOS 11/11/2018 Ot 518.89 OTH ER DISEASES OF LUNG, NEC 11/11/2018 Ot 793.11 ANIA ITARY PULMONARY NODULE 11/11/2018 Ot 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 KIDNEY DISEASE, STAGE III (MODER 11/11/2018 IVAN DAVIS, TALAL A Ot 285.9 ANEMIA NOS 11/11/2018 IVAN DAVIS, CRISTIAL A Ot 403.90 HYPTNSV CHR KID DIS, UNSPEC, W CHR KD ST 11/11/2018 IVAN DAVIS TALAL A Ot 585.3 CHRONIC KIDNEY DISEASE, STAGE III (MODER 11/11/2018 CHARLES TEMPLETON STEM CUTTER Ot 135 SARCOIDOSIS 11/11/2018 CHARLES TEMPLETON STEM CUTTER Ot 305.1 TOBACCO USE DISORDER 11/11/2018 CHARLES TEMPLETON STEM CUTTER Ot 327.23 OBSTRUCTIVE SLEEP APNEA (ADULT) (PEDIATR 11/11/2018 CHARLES TEMPLETON STEM CUTTER Ot 416.8 CHR PULMON HEART DIS NEC 11/11/2018 CHARLES TEMPLETON STEM CUTTER Ot 493.90 ASTHMA, UNSPECIFIED 11/11/2018 CHARLES TEMPLETON STEM CUTTER Ot 786.05 SHORTNESS OF BREATH 11/11/2018 CHARLES TEMPLETON STEM CUTTER Ot 786.09 RESPIRATORY ABNORM NEC 11/11/2018 TIPPING DO, ARNAV C Ot 244 .9 HYPOTHYROIDISM NOS 11/11/2018 TIPPING DO, ARNAV C Ot 250.00 DIAB CALIN WO COMPL, TYPE II OR UNSPEC TY 11/11/2018 TIPPING DO, ARNAV C Ot 285 .9 ANEMIA NOS 11/11/2018 ARNAV ALBERTO DO Ot 403.90 HYPTNSV CHR KID DIS, UNSPEC, W CHR KD ST 11/11/2018 ARNAV ALBERTO DO Ot 585 .9 CHRONIC KIDNEY DISEASE, UNSPECIFIED 11/11/2018 ARNAV ALBERTO DO Ot 799.02 HYPOXEMIA 11/11/2018 LANDON LOVE MD Ot 250.00 DIAB CALIN WO COMPL, TYPE II OR UNSPEC TY 11/11/2018 LANDON LOVE MD Ot 428.32 CHRONIC DIASTOLIC HRT FAILURE 11/11/2018 LANDON LOVE MD Ot 496 [address] AIR[address] OBSTRUCT NEC 11/11/2018 Ot E11.9 TYPE 2 DIABETES MELLITUS WITHOUT COMPLIC 11/11/2018 Ot E78.5 HYPE RLIPIDEMIA, UNSPECIFIED 11/11/2018 Ot I12.9 HYPE RTENSIVE CHRONIC KIDNEY DISEASE W ST 11/11/2018 Ot N18.9 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 01 MORBID (SEVERE) OBESITY DUE TO EXCESS CA 11/11/2018 PASCUAL JORGENSEN DO Ot G47. 33 OBSTRUCTIVE SLEEP APNEA (ADULT) (PEDIATR 11/11/2018 PASCUAL JORGENSEN DO Ot J45.909 UNSPECIFIED ASTHMA, UNCOMPLICATED 11/11/2018 PASCUAL JORGENSEN DO Ot R59. 0 LOCALIZED ENLARGED LYMPH NODES 11/11/2018 BEV BAIN STOCK CHASER Ot E07.9 DISORDER OF THYROID, UNSPECIFIED 11/11/2018 BEV BAIN STOCK CHASER Ot 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 TRICUSPID INSUFFICIENCY 11/11/2018 BEV BAIN STOCK CHASER Ot R00.2 PALPITATIONS 11/11/2018 BEV BAIN STOCK CHASER Ot R07.9 CHEST PAIN, UNSPECIFIED 11/11/2018 Ot E07.9 DISO RDER OF THYROID, UNSPECIFIED 11/11/2018 Ot I07.1 RHEU MATIC TRICUSPID INSUFFICIENCY 11/11/2018 Ot R00.2 PALP ITATIONS 11/11/2018 Ot R07.9 CHES T PAIN, UNSPECIFIED 11/11/2018 BEV BAIN L STOCK CHASER Ot E07.9 DISORDER OF THYROID, UNSPECIFIED 11/11/2018 BEV BAIN STOCK CHASER Ot 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 TRICUSPID INSUFFICIENCY 11/11/2018 BEV BAIN STOCK CHASER Ot R00.2 PALPITATIONS 11/11/2018 BAIBEV POE STOCK CHASER Ot R07.9 CHEST PAIN, UNSPECIFIED 11/11/2018 TIPPING DO, ARNAV C Ot D50 .9 IRON DEFICIENCY ANEMIA, UNSPECIFIED 11/11/2018 TIPPING DO, ARNAV C Ot E11 .9 TYPE 2 DIABETES MELLITUS WITHOUT COMPLIC 11/11/2018 TIPPING DO, ARNAV C Ot E11 .9 TYPE 2 DIABETES MELLITUS WITHOUT COMPLIC 11/11/2018 TIPPING DO, ARNAV C Ot E78 .2 MIXED HYPERLIPIDEMIA 11/11/2018 TIPPING DO, ARNAV C Ot N18 .3 CHRONIC KIDNEY DISEASE, STAGE 3 (MODERAT 11/11/2018 TIPPING DO, ARNAV C Ot D50 .9 IRON DEFICIENCY ANEMIA, UNSPECIFIED 11/11/2018 TIPPING DO, ARNAV C Ot E78 .5 HYPERLIPIDEMIA, UNSPECIFIED 11/11/2018 JEANETH DAVIS FACC, ALI FACP CCDS Ot D86.0 SARCOIDOSIS OF LUNG 11/11/2018 JEANETH DAVIS FACC, ALI FACP CCDS Ot E11.9 TYPE 2 DIABETES MELLITUS WITHOUT COMPLIC 11/11/2018 JEANETH DAVIS FACC, ALI FACP CCDS Ot E66.2 MORBID (SEVERE) OBESITY WITH ALVEOLAR HY 11/11/2018 JEANETH DAVIS FACC, ALI FACP CCDS Ot 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 11/11/2018 JEANETH DAVIS FACC, ALI FACP CCDS Ot R07.89 OTHER CHEST PAIN 11/11/2018 JEANETH DAVIS FACC, ALI FACP CCDS Ot R09.02 HYPOXEMIA 11/11/2018 CHARLES TEMPLETON STEM CUTTER Ot E66.2 MORBID (SEVERE) OBESITY WITH ALVEOLAR HY 11/11/2018 CHARLES TEMPLETON STEM CUTTER Ot R06.02 SHORTNESS OF BREATH 11/11/2018 CHARLES TEMPLETON STEM CUTTER Ot R09.02 HYPOXEMIA 11/11/2018 CHARLES TEMPLETON STEM CUTTER Ot R91.1 SOLITARY PULMONARY NODULE 11/11/2018 CHARLES TEMPLETON STEM CUTTER Ot Z72.0 TOBACCO USE 11/13/2018 RENETTA DAVIS, KRISTEN Fisher Ot E11. 40 TYPE 2 DIABETES MELLITUS WITH DIABETIC N 11/13/2018 KRISTEN JACKSON MD Ot E66. 01 MORBID (SEVERE) OBESITY DUE TO EXCESS CA 11/13/2018 KRISTEN JACKSON MD Ot E78. 00 PURE HYPERCHOLESTEROLEMIA, UNSPECIFIED 11/13/2018 KRISTEN JACKSON MD Ot F32. 9 MAJOR DEPRESSIVE DISORDER, SINGLE EPISOD 11/13/2018 KRISTEN JACKSON MD Ot F41. 9 ANXIETY DISORDER, UNSPECIFIED 11/13/2018 KRISTEN JACKSON MD Ot G43.909 MIGRAINE, UNSP, NOT INTRACTABLE, WITHOUT 11/13/2018 KRISTEN JACKSON MD Ot G47. 30 SLEEP APNEA, UNSPECIFIED 11/13/2018 KRISTEN JACKSON MD Ot I27. 0 PRIMARY PULMONARY HYPERTENSION 11/13/2018 KRISTEN JACKSON MD Ot I50. 9 HEART FAILURE, UNSPECIFIED 11/13/2018 KRISTEN JACKSON MD, Ot J44. 9 CHRONIC OBSTRUCTIVE PULMONARY DISEASE, U 11/13/2018 KRISTEN JACKSON MD Ot K21. 9 GASTRO-ESOPHAGEAL REFLUX DISEASE WITHOUT 11/13/2018 KRISTEN JACKSON MD Ot M54. 42 LUMBAGO WITH SCIATICA, LEFT SIDE 11/13/2018 KRISTEN JACKSON MD Ot M54. 5 LOW BACK PAIN 11/13/2018 KRISTEN JACKSON MD Ot Z68. 42 BODY MASS INDEX (BMI) 45.0-49.9, ADULT 11/13/2018 KRISTEN JACKSON MD Ot Z77. 22 CNTCT W AND EXPSR TO ENVIRON TOBACCO SMO 11/13/2018 KRISTEN JACKSON MD Ot Z82. 49 FAMILY HX OF ISCHEM HEART DIS AND OTH DI 11/13/2018 KRISTEN JACKSON MD Ot Z87. 19 PERSONAL HISTORY OF OTHER DISEASES OF TH 11/13/2018 KRISTEN JACKSON MD Ot Z87.440 PERSONAL HISTORY OF URINARY (TRACT) INFE 11/13/2018 KRISTEN JACKSON MD Ot Z90. 49 ACQUIRED ABSENCE OF OTHER SPECIFIED PART 11/13/2018 KRISTEN JACKSON MD Ot Z90. 89 ACQUIRED ABSENCE OF OTHER ORGANS 11/13/2018 KRISTEN JACKSON MD Ot Z98.890 OTHER SPECIFIED POSTPROCEDURAL STATES 12/24/2018 JEANETH DAVIS FACC, ALI FACP CCDS Ot V58.69 OTH MED,LT,CURRENT USE 12/24/2018 SARAH KIM MD Ot 729.5 PAIN IN LIMB 12/24/2018 SARAH KIM MD Ot 729.81 SWELLING OF LIMB 12/24/2018 ODELL BEV L STOCK CHASER Ot 276.8 HYPOPOTASSEMIA 12/24/2018 BAIMA, BEV L STOCK CHASER Ot 276.8 HYPOPOTASSEMIA 12/24/2018 BAIMA, BEV L STOCK CHASER Ot V58.69 OTH MED,LT,CURRENT USE 12/24/2018 ANASTASIIA DAVIS, YAMILETH Cruz Ot 429 .3 CARDIOMEGALY 12/24/2018 YAMILETH LAURENT MD Ot [address] OBSTRUCT NEC 12/24/2018 JEANETH DAVIS FAC, ALI FACP CCDS Ot 416.8 CHR PULMON HEART DIS NEC 12/24/2018 JEANETH LYLESC, ALI FACP CCDS Ot 427.89 CARDIAC DYSRHYTHMIAS NEC 12/24/2018 JEANETH DAVIS FACC, ALI FACP CCDS Ot [address] OBSTRUCT NEC 12/24/2018 JEANETH LYLES, ALI FACP CCDS Ot 785.6 ENLARGEMENT LYMPH NODES 12/24/2018 JEANETH DAVIS FACC, ALI FACP CCDS Ot 786.05 SHORTNESS OF BREATH 12/24/2018 JEANETH DAVIS FACC, ALI FACP CCDS Ot 786.50 CHEST PAIN NOS 12/24/2018 DARIUSMA, BEV L STOCK CHASER Ot 278.01 MORBID OBESITY 12/24/2018 ODELL BEV L STOCK CHASER Ot 278.03 OBESITY HYPOVENTILATION SYNDROME 12/24/2018 DARIUSMA, BEV L STOCK CHASER Ot 305.1 TOBACCO USE DISORDER 12/24/2018 BAIMA, BEV L STOCK CHASER Ot 397.0 TRICUSPID VALVE DISEASE 12/24/2018 BAIMA, BEV L STOCK CHASER Ot 416.8 CHR PULMON HEART DIS NEC 12/24/2018 BAIMA, BEV L STOCK CHASER Ot 424.0 MITRAL VALVE DISORDER 12/24/2018 BAIMA, BEV L STOCK CHASER Ot 429.9 HEART DISEASE NOS 12/24/2018 BAIMA, BEV L STOCK CHASER Ot 4 96 [address] AIRW[address] OBSTRUCT NEC 12/24/2018 BAIMA, BEV L STOCK CHASER Ot 786.09 RESPIRATORY ABNORM NEC 12/24/2018 BEV BAIN STOCK CHASER Ot 276.8 HYPOPOTASSEMIA 12/24/2018 BEV BAIN STOCK CHASER Ot 276.8 HYPOPOTASSEMIA 12/24/2018 SASHA DAVIS, XIAO A Ot 519.19 OTHER DISEASES OF TRACHEA AND BRONCHUS 12/24/2018 SASHA DAVIS, XIAO A Ot 786 .6 CHEST SWELLING/MASS/LUMP 12/24/2018 ZENA UMANZOR STOCK CHASER Ot 724.4 LUMBOSACRAL NEURITIS NOS 12/24/2018 ZENA UMANZOR STOCK CHASER Ot 285.9 ANEMIA NOS 12/24/2018 Ot 518.89 OTH ER DISEASES OF LUNG, NEC 12/24/2018 Ot 793.11 ANIA ITARY PULMONARY NODULE 12/24/2018 Ot 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 KIDNEY DISEASE, STAGE III (MODER 12/24/2018 IVAN DAVIS, TALAL A Ot 285.9 ANEMIA NOS 12/24/2018 IVAN DAVIS, CRISTIAL A Ot 403.90 HYPTNSV CHR KID DIS, UNSPEC, W CHR KD ST 12/24/2018 IVAN DAVIS, TALAL A Ot 585.3 CHRONIC KIDNEY DISEASE, STAGE III (MODER 12/24/2018 CHARLES TEMPLETON STEM CUTTER Ot 135 SARCOIDOSIS 12/24/2018 CHARLES TEMPLETON STEM CUTTER Ot 305.1 TOBACCO USE DISORDER 12/24/2018 CHARLES TEMPLETON STEM CUTTER Ot 327.23 OBSTRUCTIVE SLEEP APNEA (ADULT) (PEDIATR 12/24/2018 CHARLES TEMPLETON STEM CUTTER Ot 416.8 CHR PULMON HEART DIS NEC 12/24/2018 CHARLES TEMPLETON STEM CUTTER Ot 493.90 ASTHMA, UNSPECIFIED 12/24/2018 CHARLES TEMPLETON STEM CUTTER Ot 786.05 SHORTNESS OF BREATH 12/24/2018 CHARLES TEMPLETON STEM CUTTER Ot 786.09 RESPIRATORY ABNORM NEC 12/24/2018 TIPPING DO, ARNAV C Ot 244 .9 HYPOTHYROIDISM NOS 12/24/2018 TIPPING DO, ARNAV C Ot 250.00 DIAB CALIN WO COMPL, TYPE II OR UNSPEC TY 12/24/2018 TIPPING DO, ARNAV C Ot 285 .9 ANEMIA NOS 12/24/2018 TIPPING DO, ARNAV C Ot 403.90 HYPTNSV CHR KID DIS, UNSPEC, W CHR KD ST 12/24/2018 TIPPING ARNAV CASE Ot 585 .9 CHRONIC KIDNEY DISEASE, UNSPECIFIED 12/24/2018 ARNAV ALBERTO DO Ot 799.02 HYPOXEMIA 12/24/2018 LANDON LOVE MD Ot 250.00 DIAB CALIN WO COMPL, TYPE II OR UNSPEC TY 12/24/2018 LANDON LOVE MD Ot 428.32 CHRONIC DIASTOLIC HRT FAILURE 12/24/2018 LANDON LOVE MD Ot [address] OBSTRUCT NEC 12/24/2018 Ot E11.9 TYPE 2 DIABETES MELLITUS WITHOUT COMPLIC 12/24/2018 Ot E78.5 HYPE RLIPIDEMIA, UNSPECIFIED 12/24/2018 Ot I12.9 HYPE RTENSIVE CHRONIC KIDNEY DISEASE W ST 12/24/2018 Ot 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 01 MORBID (SEVERE) OBESITY DUE TO EXCESS CA 12/24/2018 PASCUAL JORGENSEN DO Ot G47. 33 OBSTRUCTIVE SLEEP APNEA (ADULT) (PEDIATR 12/24/2018 PASCUAL JORGENSEN DO Ot J45.909 UNSPECIFIED ASTHMA, UNCOMPLICATED 12/24/2018 PASCUAL JORGENSEN DO Ot R59. 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 INSUFFICIENCY 12/24/2018 BEV BAIN STOCK CHASER Ot R00.2 PALPITATIONS 12/24/2018 BEV BAIN STOCK CHASER Ot R07.9 CHEST PAIN, UNSPECIFIED 12/24/2018 Ot E07.9 DISO RDER OF THYROID, UNSPECIFIED 12/24/2018 Ot I07.1 RHEU MATIC TRICUSPID INSUFFICIENCY 12/24/2018 Ot R00.2 PALP ITATIONS 12/24/2018 Ot R07.9 CHES T PAIN, UNSPECIFIED 12/24/2018 BEV BAIN L STOCK CHASER Ot E07.9 DISORDER OF THYROID, UNSPECIFIED 12/24/2018 BEV BAIN L STOCK CHASER Ot 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 TRICUSPID INSUFFICIENCY 12/24/2018 BEV BAIN L STOCK CHASER Ot R00.2 PALPITATIONS 12/24/2018 BEV BAIN STOCK CHASER Ot R07.9 CHEST PAIN, UNSPECIFIED 12/24/2018 TIPPING DO, ARNAV C Ot D50 .9 IRON DEFICIENCY ANEMIA, UNSPECIFIED 12/24/2018 TIPPING DO, ARNAV C Ot E11 .9 TYPE 2 DIABETES MELLITUS WITHOUT COMPLIC 12/24/2018 TIPPING DO, ARNAV C Ot E11 .9 TYPE 2 DIABETES MELLITUS WITHOUT COMPLIC 12/24/2018 TIPPING DO, ARNAV C Ot E78 .2 MIXED HYPERLIPIDEMIA 12/24/2018 TIPPING DO, ARNAV C Ot N18 .3 CHRONIC KIDNEY DISEASE, STAGE 3 (MODERAT 12/24/2018 TIPPING DO, ARNAV C Ot D50 .9 IRON DEFICIENCY ANEMIA, UNSPECIFIED 12/24/2018 TIPPING DO, ARNAV C Ot E78 .5 HYPERLIPIDEMIA, UNSPECIFIED 12/24/2018 JEANETH DAVIS FACC, ALI FACP CCDS Ot D86.0 SARCOIDOSIS OF LUNG 12/24/2018 JEANETH DAVIS FACSarita, ALI FACP CCDS Ot E11.9 TYPE 2 DIABETES MELLITUS WITHOUT COMPLIC 12/24/2018 JEANETH DAVIS FACC, ALI FACP CCDS Ot E66.2 MORBID (SEVERE) OBESITY WITH ALVEOLAR HY 12/24/2018 JEANETH DAVIS FACC, ALI FACP CCDS Ot 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 12/24/2018 JEANETH DAVIS FACC, ALI FACP CCDS Ot R07.89 OTHER CHEST PAIN 12/24/2018 JEANETH DAVIS FACC, ALI FACP CCDS Ot R09.02 HYPOXEMIA 12/24/2018 CHARLES TEMPLETON STEM CUTTER Ot E66.2 MORBID (SEVERE) OBESITY WITH ALVEOLAR HY 12/24/2018 CHARLES TEMPLETON STEM CUTTER Ot R06.02 SHORTNESS OF BREATH 12/24/2018 CHARLES TEMPLETON STEM CUTTER Ot R09.02 HYPOXEMIA 12/24/2018 CHARLES TEMPLETON STEM CUTTER Ot R91.1 SOLITARY PULMONARY NODULE 12/24/2018 CHARLES TEMPLETON STEM CUTTER Ot Z72.0 TOBACCO USE 12/30/2018 CHARLES TEMPLETON STEM CUTTER Ot D86.9 SARCOIDOSIS, UNSPECIFIED 12/30/2018 CHARLES TEMPLETON STEM CUTTER Ot J45.909 UNSPECIFIED ASTHMA, UNCOMPLICATED 12/30/2018 CHARLES TEMPLETON STEM CUTTER Ot J98.4 OTHER DISORDERS OF LUNG 12/30/2018 YOKASTA CHARLES Gomez STEM CUTTER Ot R59.0 LOCALIZED ENLARGED LYMPH NODES 12/30/2018 CHARLES TEMPLETON STEM CUTTER Ot R91.1 SOLITARY PULMONARY NODULE 01/15/2019 MOOK TEMPLETONINE Jason STEM CUTTER Ot D86.9 SARCOIDOSIS, UNSPECIFIED 01/15/2019 MOOK TEMPLETONINE Jason STEM CUTTER Ot J45.909 UNSPECIFIED ASTHMA, UNCOMPLICATED 01/15/2019 CHARLES TEMPLETON STEM CUTTER Ot J98.4 OTHER DISORDERS OF LUNG 01/15/2019 YOKASTA CHARLES Gomez STEM CUTTER Ot R59.0 LOCALIZED ENLARGED LYMPH NODES 01/15/2019 CHARLES TEMPLETON STEM CUTTER Ot R91.1 SOLITARY PULMONARY NODULE 01/27/2019 CHARLES TEMPLETON STEM CUTTER Ot D86.9 SARCOIDOSIS, UNSPECIFIED 01/27/2019 CHARLES TEMPLETON STEM CUTTER Ot J45.909 UNSPECIFIED ASTHMA, UNCOMPLICATED 01/27/2019 CHARLES TEMPLETON STEM CUTTER Ot J98.4 OTHER DISORDERS OF LUNG 01/27/2019 CHARLES TEMPLETON STEM CUTTER Ot R59.0 LOCALIZED ENLARGED LYMPH NODES 01/27/2019 CHARLES TEMPLETON STEM CUTTER Ot R91.1 SOLITARY PULMONARY NODULE 05/06/2019 CHARLES TEMPLETON STEM CUTTER Ot E66.2 MORBID (SEVERE) OBESITY WITH ALVEOLAR HY 05/06/2019 CHARLES TEMPLETON STEM CUTTER Ot R06.02 SHORTNESS OF BREATH 05/06/2019 CHARLES TEMPLETON STEM CUTTER Ot R09.02 HYPOXEMIA 05/06/2019 CHARLES TEMPLETON STEM CUTTER Ot R91.1 SOLITARY PULMONARY NODULE 05/06/2019 CHARLES TEMPLETON STEM CUTTER Ot Z72.0 TOBACCO USE 09/20/2019 CATRACHITA CALDERON STEM CUTTER Ot N63.20 UNSPECIFIED LUMP IN THE LEFT BREAST, UNS 09/23/2019 KRISTEN JACKSON MD Ot E03. 9 HYPOTHYROIDISM, UNSPECIFIED 09/23/2019 KRISTEN JACKSON MD Ot E11. 40 TYPE 2 DIABETES MELLITUS WITH DIABETIC N 09/23/2019 KRISTEN JACKSON MD Ot E66. 01 MORBID (SEVERE) OBESITY DUE TO EXCESS CA 09/23/2019 KRISTEN JACKSON MD Ot E78. 00 PURE HYPERCHOLESTEROLEMIA, UNSPECIFIED 09/23/2019 RENETTA DAVIS, KRISTEN Fisher Ot F17.210 NICOTINE DEPENDENCE, CIGARETTES, UNCOMPL 09/23/2019 KRISTEN JACKSON MD Ot F32. 9 MAJOR DEPRESSIVE DISORDER, SINGLE EPISOD 09/23/2019 KRISTEN JACKSON MD Ot F41. 9 ANXIETY DISORDER, UNSPECIFIED 09/23/2019 RENETTA DAVIS, KRISTEN Fisher Ot G43.909 MIGRAINE, UNSP, NOT INTRACTABLE, WITHOUT 09/23/2019 KRISTEN JACKSON MD Ot I50. 9 HEART FAILURE, UNSPECIFIED 09/23/2019 KRISTEN JACKSON MD Ot J18. 9 PNEUMONIA, UNSPECIFIED ORGANISM 09/23/2019 KRISTEN JACKSON MD Ot J44. 9 CHRONIC OBSTRUCTIVE PULMONARY DISEASE, U 09/23/2019 KRISTEN JACKSON MD Ot K21. 9 GASTRO-ESOPHAGEAL REFLUX DISEASE WITHOUT 09/23/2019 KRISTEN JACKSON MD Ot M79. 7 FIBROMYALGIA 09/23/2019 KRISTEN JACKSON MD Ot R07. 9 CHEST PAIN, UNSPECIFIED 09/23/2019 KRISTEN JACKSON MD Ot R09. 02 HYPOXEMIA 09/23/2019 KRISTEN JACKSON MD Ot Z68. 43 BODY MASS INDEX (BMI) 50.0-59.9, ADULT 09/23/2019 KRISTEN JACKSON MD Ot Z82. 49 FAMILY HX OF ISCHEM HEART DIS AND OTH DI 09/23/2019 KRISTEN JACKSON MD Ot Z87.440 PERSONAL HISTORY OF URINARY (TRACT) INFE 09/23/2019 KRISTEN JACKSON MD Ot Z88. 1 ALLERGY STATUS TO OTHER ANTIBIOTIC AGENT 09/23/2019 KRISETN JACKSON MD Ot Z88. 6 ALLERGY STATUS TO ANALGESIC AGENT STATUS 09/23/2019 KRISTEN JACKSON MD Ot Z90. 49 ACQUIRED ABSENCE OF OTHER SPECIFIED PART 09/23/2019 KRISTEN JACKSON MD Ot Z90. 89 ACQUIRED ABSENCE OF OTHER ORGANS 09/23/2019 BEV BAIN STOCK CHASER Ot 278.01 MORBID OBESITY 09/23/2019 BEV BAIN STOCK CHASER Ot 278.03 OBESITY HYPOVENTILATION SYNDROME 09/23/2019 BEV BAIN STOCK CHASER Ot 305.1 TOBACCO USE DISORDER 09/23/2019 BAIMA, BEV L STOCK CHASER Ot 397.0 TRICUSPID VALVE DISEASE 09/23/2019 BAIMA, BEV L STOCK CHASER Ot 416.8 CHR PULMON HEART DIS NEC 09/23/2019 BAIMA, BEV L STOCK CHASER Ot 424.0 MITRAL VALVE DISORDER 09/23/2019 BAIMA, BEV L STOCK CHASER Ot 429.9 HEART DISEASE NOS 09/23/2019 BAIMA, BEV L STOCK CHASER Ot 4 96 CHR AIRWAY OBSTRUCT NEC 09/23/2019 BAIMA, BEV L STOCK CHASER Ot 786.09 RESPIRATORY ABNORM NEC 09/23/2019 BAIMA, BEV L STOCK CHASER Ot 276.8 HYPOPOTASSEMIA 09/23/2019 BAIMA, BEV L STOCK CHASER Ot 276.8 HYPOPOTASSEMIA 09/23/2019 SASHA DAVIS, XIAO A Ot 519.19 OTHER DISEASES OF TRACHEA AND BRONCHUS 09/23/2019 SASHA DAVIS, XIAO A Ot 786 .6 CHEST SWELLING/MASS/LUMP 09/23/2019 ZENA UMANZOR STOCK CHASER Ot 724.4 LUMBOSACRAL NEURITIS NOS 09/23/2019 ZENA UMANZOR STOCK CHASER Ot 285.9 ANEMIA NOS 09/23/2019 Ot 518.89 OTH ER DISEASES OF LUNG, NEC 09/23/2019 Ot 793.11 ANIA ITARY PULMONARY NODULE 09/23/2019 Ot 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 KIDNEY DISEASE, STAGE III (MODER 09/23/2019 IVAN DAVIS, TALAL A Ot 285.9 ANEMIA NOS 09/23/2019 IVAN DAVIS, TALAL A Ot 403.90 HYPTNSV CHR KID DIS, UNSPEC, W CHR KD ST 09/23/2019 IVAN DAVIS TALAL A Ot 585.3 CHRONIC KIDNEY DISEASE, STAGE III (MODER 09/23/2019 CHARLES TEMPLETON STEM CUTTER Ot 135 SARCOIDOSIS 09/23/2019 CHARLES TEMPLETON STEM CUTTER Ot 305.1 TOBACCO USE DISORDER 09/23/2019 CHARLES TEMPLETON STEM CUTTER Ot 327.23 OBSTRUCTIVE SLEEP APNEA (ADULT) (PEDIATR 09/23/2019 CHARLES TEMPLETON STEM CUTTER Ot 416.8 CHR PULMON HEART DIS NEC 09/23/2019 CHARLES TEMPLETON STEM CUTTER Ot 493.90 ASTHMA, UNSPECIFIED 09/23/2019 CHARLES TEMPLETON STEM CUTTER Ot 786.05 SHORTNESS OF BREATH 09/23/2019 CHARLES TEMPLETON APRN Ot 786.09 RESPIRATORY ABNORM NEC 09/23/2019 TIPPING DO, ARNAV C Ot 244 .9 HYPOTHYROIDISM NOS 09/23/2019 TIPPING DO, ARNAV C Ot 250.00 DIAB CALIN WO COMPL, TYPE II OR UNSPEC TY 09/23/2019 TIPPING DO, ARNAV C Ot 285 .9 ANEMIA NOS 09/23/2019 TIPPING DO, ARNAV C Ot 403.90 HYPTNSV CHR KID DIS, UNSPEC, W CHR KD ST 09/23/2019 TIPPING DO, ARNAV C Ot 585 .9 CHRONIC KIDNEY DISEASE, UNSPECIFIED 09/23/2019 TIPPING DO, ARNAV C Ot 799.02 HYPOXEMIA 09/23/2019 IVAN DAVIS, LANDON A Ot 250.00 DIAB CALIN WO COMPL, TYPE II OR UNSPEC TY 09/23/2019 IVAN DAVIS, TALAL A Ot 428.32 CHRONIC DIASTOLIC HRT FAILURE 09/23/2019 IVAN DAVIS, TALAL A Ot 496 CHR AIRWAY OBSTRUCT NEC 09/23/2019 Ot E11.9 TYPE 2 DIABETES MELLITUS WITHOUT COMPLIC 09/23/2019 Ot E78.5 HYPE RLIPIDEMIA, UNSPECIFIED 09/23/2019 Ot I12.9 HYPE RTENSIVE CHRONIC KIDNEY DISEASE W ST 09/23/2019 Ot 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 01 MORBID (SEVERE) OBESITY DUE TO EXCESS CA 09/23/2019 PASCUAL JORGENSEN DO Ot G47. 33 OBSTRUCTIVE SLEEP APNEA (ADULT) (PEDIATR 09/23/2019 PASCUAL JORGENSEN DO Ot J45.909 UNSPECIFIED ASTHMA, UNCOMPLICATED 09/23/2019 PASCUAL JORGENSEN DO Ot R59. 0 LOCALIZED ENLARGED LYMPH NODES 09/23/2019 BEV BAIN L STOCK CHASER Ot E07.9 DISORDER OF THYROID, UNSPECIFIED 09/23/2019 ODELL BEV L STOCK CHASER Ot 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 TRICUSPID INSUFFICIENCY 09/23/2019 ODELL BEV L STOCK CHASER Ot R00.2 PALPITATIONS 09/23/2019 ODELL BEV L STOCK CHASER Ot R07.9 CHEST PAIN, UNSPECIFIED 09/23/2019 Ot E07.9 DISO RDER OF THYROID, UNSPECIFIED 09/23/2019 Ot I07.1 RHEU MATIC TRICUSPID INSUFFICIENCY 09/23/2019 Ot R00.2 PALP ITATIONS 09/23/2019 Ot R07.9 CHES T PAIN, UNSPECIFIED 09/23/2019 BAIMA, BEV L STOCK CHASER Ot E07.9 DISORDER OF THYROID, UNSPECIFIED 09/23/2019 BAIMA, BEV L STOCK CHASER Ot 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 TRICUSPID INSUFFICIENCY 09/23/2019 BAIMA, BEV L STOCK CHASER Ot R00.2 PALPITATIONS 09/23/2019 BAIMA, BEV L STOCK CHASER Ot R07.9 CHEST PAIN, UNSPECIFIED 09/23/2019 TIPPING DO, ARNAV C Ot D50 .9 IRON DEFICIENCY ANEMIA, UNSPECIFIED 09/23/2019 TIPPING DO, ARNAV C Ot E11 .9 TYPE 2 DIABETES MELLITUS WITHOUT COMPLIC 09/23/2019 TIPPING DO, ARNAV C Ot E11 .9 TYPE 2 DIABETES MELLITUS WITHOUT COMPLIC 09/23/2019 TIPPING DO, ARNAV C Ot E78 .2 MIXED HYPERLIPIDEMIA 09/23/2019 TIPPING DO, ARNAV C Ot N18 .3 CHRONIC KIDNEY DISEASE, STAGE 3 (MODERAT 09/23/2019 TIPPING DO, ARNAV C Ot D50 .9 IRON DEFICIENCY ANEMIA, UNSPECIFIED 09/23/2019 TIPPING DO, ARNAV C Ot E78 .5 HYPERLIPIDEMIA, UNSPECIFIED 09/23/2019 JEANETH DAVIS FACC, ALI FACP CCDS Ot D86.0 SARCOIDOSIS OF LUNG 09/23/2019 JEANETH DAVIS FACC, ALI FACP CCDS Ot E11.9 TYPE 2 DIABETES MELLITUS WITHOUT COMPLIC 09/23/2019 JEANETH DAVIS FACC, ALI FACP CCDS Ot E66.2 MORBID (SEVERE) OBESITY WITH ALVEOLAR HY 09/23/2019 JEANETH DAVIS FACC, ALI FACP CCDS Ot 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 09/23/2019 JEANETH DAVIS FACC, ALI FACP CCDS Ot R07.89 OTHER CHEST PAIN 09/23/2019 JEANETH DAVIS FACC, ALI FACP CCDS Ot R09.02 HYPOXEMIA 09/23/2019 CHARLES TEMPLETON APRN Ot E66.2 MORBID (SEVERE) OBESITY WITH ALVEOLAR HY 09/23/2019 CHARLES TEMPLETON APRN Ot R06.02 SHORTNESS OF BREATH 09/23/2019 CHARLES TEMPLETON STEM CUTTER Ot R09.02 HYPOXEMIA 09/23/2019 CHARLES TEMPLETON STEM CUTTER Ot R91.1 SOLITARY PULMONARY NODULE 09/23/2019 CHARLES TEMPLETON STEM CUTTER Ot Z72.0 TOBACCO USE 09/23/2019 CHARLES TEMPLETON STEM CUTTER Ot D86.9 SARCOIDOSIS, UNSPECIFIED 09/23/2019 CHARLES TEMPLETON STEM CUTTER Ot J45.909 UNSPECIFIED ASTHMA, UNCOMPLICATED 09/23/2019 CHARLES TEMPLETON STEM CUTTER Ot J98.4 OTHER DISORDERS OF LUNG 09/23/2019 CHARLES TEMPLETON STEM CUTTER Ot R59.0 LOCALIZED ENLARGED LYMPH NODES 09/23/2019 CHARLES TEMPLETON STEM CUTTER Ot R91.1 SOLITARY PULMONARY NODULE 09/23/2019 DEBBIE CALDERONZAYANIV Fisher STEM CUTTER Ot N63.20 UNSPECIFIED LUMP IN THE LEFT BREAST, UNS 09/28/2019 KRISTEN JACKSON MD Ot E03. 9 HYPOTHYROIDISM, UNSPECIFIED 09/28/2019 KRISTEN JACKSON MD Ot E11. 40 TYPE 2 DIABETES MELLITUS WITH DIABETIC N 09/28/2019 KRISTEN JACKSON MD Ot E66. 01 MORBID (SEVERE) OBESITY DUE TO EXCESS CA 09/28/2019 KRISTEN JACKSON MD Ot E78. 00 PURE HYPERCHOLESTEROLEMIA, UNSPECIFIED 09/28/2019 KRISTEN JACKSON MD Ot F17.210 NICOTINE DEPENDENCE, CIGARETTES, UNCOMPL 09/28/2019 KRISTEN JACKSON MD Ot F32. 9 MAJOR DEPRESSIVE DISORDER, SINGLE EPISOD 09/28/2019 KRISTEN JACKSON MD Ot F41. 9 ANXIETY DISORDER, UNSPECIFIED 09/28/2019 RENETTA DAVIS, KRISTEN J Ot G43.909 MIGRAINE, UNSP, NOT INTRACTABLE, WITHOUT 09/28/2019 KRISTEN JACKSON MD J Ot I50. 9 HEART FAILURE, UNSPECIFIED 09/28/2019 KRISTEN JACKSON MD Ot J18. 9 PNEUMONIA, UNSPECIFIED ORGANISM 09/28/2019 KRISTEN JACKSON MD Ot J44. 9 CHRONIC OBSTRUCTIVE PULMONARY DISEASE, U 09/28/2019 KRISTEN JACKSON MD Ot K21. 9 GASTRO-ESOPHAGEAL REFLUX DISEASE WITHOUT 09/28/2019 KRISTEN JACKSON MD J Ot M79. 7 FIBROMYALGIA 09/28/2019 KRISTEN JACKSON MD Ot R07. 9 CHEST PAIN, UNSPECIFIED 09/28/2019 KRISTEN JACKSON MD Ot R09. 02 HYPOXEMIA 09/28/2019 KRISTEN JACKSON MD, Ot Z68. 43 BODY MASS INDEX (BMI) 50.0-59.9, ADULT 09/28/2019 KRISTEN JACKSON MD Ot Z82. 49 FAMILY HX OF ISCHEM HEART DIS AND OTH DI 09/28/2019 KRISTEN JACKSON MD, Ot Z87.440 PERSONAL HISTORY OF URINARY (TRACT) INFE 09/28/2019 KRISTEN JACKSON MD, Ot Z88. 1 ALLERGY STATUS TO OTHER ANTIBIOTIC AGENT 09/28/2019 KRISTEN JACKSON MD, Ot Z88. 6 ALLERGY STATUS TO ANALGESIC AGENT STATUS 09/28/2019 KRISTEN JACKSON MD, Ot Z90. 49 ACQUIRED ABSENCE OF OTHER SPECIFIED PART 09/28/2019 KRISTEN JACKSON MD Ot Z90. 89 ACQUIRED ABSENCE OF OTHER ORGANS 10/13/2019 CATRACHITA CALDERON APRN Ot N63.20 UNSPECIFIED LUMP IN THE LEFT BREAST, UNS 01/17/2020 ZENA UMANZOR Ot 724.4 LUMBOSACRAL NEURITIS NOS 01/17/2020 ZENA UMANZOR Ot 285.9 ANEMIA NOS 01/17/2020 Ot 518.89 OTH ER DISEASES OF LUNG, NEC 01/17/2020 Ot 793.11 ANIA ITARY PULMONARY NODULE 01/17/2020 Ot 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 KIDNEY DISEASE, STAGE III (MODER 01/17/2020 LANDON LOVE MD Ot 285.9 ANEMIA NOS 01/17/2020 LANDON LOVE MD Ot 403.90 HYPTNSV CHR KID DIS, UNSPEC, W CHR KD ST 01/17/2020 LANDON LOVE MD Ot 585.3 CHRONIC KIDNEY DISEASE, STAGE III (MODER 01/17/2020 CHARLES TEMPLETON APRN Ot 135 SARCOIDOSIS 01/17/2020 CHARLES TEMPLETON APRN Ot 305.1 TOBACCO USE DISORDER 01/17/2020 CHARLES TEMPLETON APRN Ot 327.23 OBSTRUCTIVE SLEEP APNEA (ADULT) (PEDIATR 01/17/2020 CHARLES TEMPLETON APRN Ot 416.8 CHR PULMON HEART DIS NEC 01/17/2020 CHARLES TEMPLETON APRN Ot 493.90 ASTHMA, UNSPECIFIED 01/17/2020 CHARLES TEMPLETON APRN Ot 786.05 SHORTNESS OF BREATH 01/17/2020 CHARLES TEMPLETON STEM CUTTER Ot 786.09 RESPIRATORY ABNORM NEC 01/17/2020 TIPPING DO, ARNAV C Ot 244 .9 HYPOTHYROIDISM NOS 01/17/2020 TIPPING DO, ARNAV C Ot 250.00 DIAB CALIN WO COMPL, TYPE II OR UNSPEC TY 01/17/2020 TIPPING DO, ARNAV C Ot 285 .9 ANEMIA NOS 01/17/2020 TIPPING DO, ARNAV C Ot 403.90 HYPTNSV CHR KID DIS, UNSPEC, W CHR KD ST 01/17/2020 TIPPING DO, ARNAV C Ot 585 .9 CHRONIC KIDNEY DISEASE, UNSPECIFIED 01/17/2020 TIPPING DO, ARNAV C Ot 799.02 HYPOXEMIA 01/17/2020 IVAN DAVIS, LANDON A Ot 250.00 DIAB CALIN WO COMPL, TYPE II OR UNSPEC TY 01/17/2020 IVAN DAVIS, CRISTIAL A Ot 428.32 CHRONIC DIASTOLIC HRT FAILURE 01/17/2020 IVAN DAVIS, TALAL A Ot 496 CHR AIRWAY OBSTRUCT NEC 01/17/2020 Ot E11.9 TYPE 2 DIABETES MELLITUS WITHOUT COMPLIC 01/17/2020 Ot E78.5 HYPE RLIPIDEMIA, UNSPECIFIED 01/17/2020 Ot I12.9 HYPE RTENSIVE CHRONIC KIDNEY DISEASE W ST 01/17/2020 Ot N18.9 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 YVETTE KIDNEY DISEASE, UNSPECIFIED 01/17/2020 Ot R09.02 HYP OXEMIA 01/17/2020 PASCUAL JORGENSEN DO Ot E66. 01 MORBID (SEVERE) OBESITY DUE TO EXCESS CA 01/17/2020 PASCUAL JORGENSEN DO Ot G47. 33 OBSTRUCTIVE SLEEP APNEA (ADULT) (PEDIATR 01/17/2020 PASCUAL JORGENSEN DO Ot J45.909 UNSPECIFIED ASTHMA, UNCOMPLICATED 01/17/2020 PASCUAL JORGENSEN DO Ot R59. 0 LOCALIZED ENLARGED LYMPH NODES 01/17/2020 BEV BAIN STOCK CHASER Ot E07.9 DISORDER OF THYROID, UNSPECIFIED 01/17/2020 BEV BAIN L STOCK CHASER Ot 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 TRICUSPID INSUFFICIENCY 01/17/2020 BEV BAIN L STOCK CHASER Ot R00.2 PALPITATIONS 01/17/2020 ODELL BEV Bang STOCK CHASER Ot R07.9 CHEST PAIN, UNSPECIFIED 01/17/2020 Ot E07.9 DISO RDER OF THYROID, UNSPECIFIED 01/17/2020 Ot I07.1 RHEU MATIC TRICUSPID INSUFFICIENCY 01/17/2020 Ot R00.2 PALP ITATIONS 01/17/2020 Ot R07.9 CHES T PAIN, UNSPECIFIED 01/17/2020 BAIMA, BEV L STOCK CHASER Ot E07.9 DISORDER OF THYROID, UNSPECIFIED 01/17/2020 BAIMA, BEV L STOCK CHASER Ot 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 TRICUSPID INSUFFICIENCY 01/17/2020 BAIMA, BEV L STOCK CHASER Ot R00.2 PALPITATIONS 01/17/2020 BAIMA, BEV L STOCK CHASER Ot R07.9 CHEST PAIN, UNSPECIFIED 01/17/2020 TIPPING DO, ARNAV C Ot D50 .9 IRON DEFICIENCY ANEMIA, UNSPECIFIED 01/17/2020 TIPPING DO, ARNAV C Ot E11 .9 TYPE 2 DIABETES MELLITUS WITHOUT COMPLIC 01/17/2020 TIPPING DO, ARNAV C Ot E11 .9 TYPE 2 DIABETES MELLITUS WITHOUT COMPLIC 01/17/2020 TIPPING DO, ARNAV C Ot E78 .2 MIXED HYPERLIPIDEMIA 01/17/2020 TIPPING DO, ARNAV C Ot N18 .3 CHRONIC KIDNEY DISEASE, STAGE 3 (MODERAT 01/17/2020 TIPPING DO, ARNAV C Ot D50 .9 IRON DEFICIENCY ANEMIA, UNSPECIFIED 01/17/2020 TIPPING DO, ARNAV C Ot E78 .5 HYPERLIPIDEMIA, UNSPECIFIED 01/17/2020 JEANETH DAVIS FACC, ALI FACP CCDS Ot D86.0 SARCOIDOSIS OF LUNG 01/17/2020 JEANETH DAVIS FACC, ALI FACP CCDS Ot E11.9 TYPE 2 DIABETES MELLITUS WITHOUT COMPLIC 01/17/2020 JEANETH DAVIS FACC, ALI FACP CCDS Ot E66.2 MORBID (SEVERE) OBESITY WITH ALVEOLAR HY 01/17/2020 JEANETH DAVIS FACC, ALI FACP CCDS Ot 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 01/17/2020 JEANETH DAVIS FACC, ALI FACP CCDS Ot R07.89 OTHER CHEST PAIN 01/17/2020 JEANETH DAVIS FACC, ALI FACP CCDS Ot R09.02 HYPOXEMIA 01/17/2020 YOKASTA, CHARLES E STEM CUTTER Ot E66.2 MORBID (SEVERE) OBESITY WITH ALVEOLAR HY 01/17/2020 CHARLES TEMPLETON STEM CUTTER Ot R06.02 SHORTNESS OF BREATH 01/17/2020 CHARLES TEMPLETON STEM CUTTER Ot R09.02 HYPOXEMIA 01/17/2020 MOOK TEMPLETONINE E STEM CUTTER Ot R91.1 SOLITARY PULMONARY NODULE 01/17/2020 YOKASTACHARLES MONROE STEM CUTTER Ot Z72.0 TOBACCO USE 01/17/2020 YOKASTACHARLES MONROE STEM CUTTER Ot D86.9 SARCOIDOSIS, UNSPECIFIED 01/17/2020 MOOK TEMPLETONINE E STEM CUTTER Ot J45.909 UNSPECIFIED ASTHMA, UNCOMPLICATED 01/17/2020 YOKASTAMOOKCHARLES Jason STEM CUTTER Ot J98.4 OTHER DISORDERS OF LUNG 01/17/2020 YOKASTAMOOKCHARLES E STEM CUTTER Ot R59.0 LOCALIZED ENLARGED LYMPH NODES 01/17/2020 MOOK TEMPLETONMEGAN Gomez STEM CUTTER Ot R91.1 SOLITARY PULMONARY NODULE 01/17/2020 CATRACHITA CALDERON STEM CUTTER Ot N63.20 UNSPECIFIED LUMP IN THE LEFT BREAST, UNS 01/26/2020 JEANETH DAVIS FACC, ALI FACP CCDS Ot D86.0 SARCOIDOSIS OF LUNG 01/26/2020 JEANETH DAVIS FACC, ALI FACP CCDS Ot E11.9 TYPE 2 DIABETES MELLITUS WITHOUT COMPLIC 01/26/2020 JEANETH DAVIS FACC, ALI FACP CCDS Ot E66.2 MORBID (SEVERE) OBESITY WITH ALVEOLAR HY 01/26/2020 JEANETH DAVIS FACC, ALI FACP CCDS Ot 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 01/26/2020 JEANETH DAVIS FACC, ALI FACP CCDS Ot R07.89 OTHER CHEST PAIN 01/26/2020 JEANETH DAVIS FACC, ALI FACP CCDS Ot R09.02 HYPOXEMIA 01/26/2020 JEANETH DAVIS FACC, ALI FACP CCDS Ot D86.0 SARCOIDOSIS OF LUNG 01/26/2020 JEANETH DAVIS FACC, ALI FACP CCDS Ot E11.9 TYPE 2 DIABETES MELLITUS WITHOUT COMPLIC 01/26/2020 JEANETH DAVIS FACC, ALI FACP CCDS Ot E66.2 MORBID (SEVERE) OBESITY WITH ALVEOLAR HY 01/26/2020 JEANETH DAVIS FACC, ALI FACP CCDS Ot 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 01/26/2020 JEANETH DAVIS FACC, SOPHIE GODDARD CCDS Ot R07.89 OTHER CHEST PAIN 01/26/2020 JEANETH DAVIS FACC, SOPHIE GODDARD CCDS Ot R09.02 HYPOXEMIA Procedures Code Description Performed By Per formed On 47.01 LAPA ROSCOP APPENDECTOMY 05/12/2012 65.01 LAPA ROSCOP OOPHOROTOMY 05/12/2012 47884 URIN E DRUG SCREEN (IN-HOUSE) 11/19/2012 90722 OXIMETRY 12/16/2012 98928 ROUT INE VENIPUNCTURE 01/06/2013 19882 CBC 01/06/2013 03235 LIPI D PANEL 01/06/2013 20003 CMP 01/06/2013 4441471 GF R CALC (RESULT ONLY) 01/06/2013 94236 A1C (RML) 01/07/2013 63103 TSH 01/07/2013 04506 KRYSTIAN MIN D 25-HYDROXY (D2,D3, TOTAL) 01/07/2013 69931 ROUT INE VENIPUNCTURE 01/20/2013 91405 CMP 01/20/2013 [id number] GF R CALC (RESULT ONLY) 01/20/2013 63336 MAGNESIUM 01/20/2013 70013 ROUT INE VENIPUNCTURE 01/22/2013 84268 BMP 01/22/2013 69570 MAGNESIUM 01/22/2013 [id number] GF R CALC (RESULT ONLY) 01/22/2013 06150 ROUT INE VENIPUNCTURE 01/25/2013 34545 BMP 01/25/2013 71197 MAGNESIUM 01/25/2013 [id number] GF R CALC (RESULT ONLY) 01/25/2013 45.16 ESOP HAGOGASTRODUODENOSCOPY [EGD] W/CLOSE 02/02/2013 61193 ROUT INE VENIPUNCTURE 02/08/2013 52595 BMP 02/08/2013 [id number] GF R CALC (RESULT ONLY) 02/08/2013 47431 ROUT INE VENIPUNCTURE 02/10/2013 52313 BMP 02/11/2013 [id number] GF R CALC (RESULT ONLY) 02/11/2013 32287 ROUT INE VENIPUNCTURE 02/17/2013 79591 BMP 02/17/2013 [id number] GF R CALC (RESULT ONLY) 02/17/2013 59900 MAGNESIUM 02/17/2013 17379 BNP 02/18/2013 42809 ROUT INE VENIPUNCTURE 02/19/2013 24877 BMP 02/19/2013 71041 MAGNESIUM 02/19/2013 [id number] GF R CALC (RESULT ONLY) 02/19/2013 94040 BNP 02/20/2013 54817 ROUT INE VENIPUNCTURE 03/10/2013 73945 BMP 03/10/2013 47979 MAGNESIUM 03/10/2013 [id number] GF R CALC (RESULT ONLY) 03/10/2013 45839 VENO US DOPPLER UNILATERAL/LIMITED 03/12/2013 98246 OXIMETRY 03/12/2013 19359 ROUT INE VENIPUNCTURE 03/24/2013 18117 BMP 03/24/2013 38605 MAGNESIUM 03/24/2013 [id number] GF R CALC (RESULT ONLY) 03/24/2013 51986 ROUT INE VENIPUNCTURE 05/11/2013 14926 OXIMETRY 05/11/2013 27127 MAGNESIUM 05/11/2013 03721 BMP 05/11/2013 [id number] GF R CALC (RESULT ONLY) 05/11/2013 51250 TSH 05/11/2013 61482 T4 FREE 05/11/2013 87500 US P ELVIC COMPL (REFLEX CPT- 65628) 05/13/2013 66428 ROUT INE VENIPUNCTURE 05/13/2013 56362 URIN E TEST (IN- HOUSE) 05/13/2013 99720 FSH 05/13/2013 55949 LH 05/13/2013 80084 TEST [facility] 05/16/2013 82013 ROUT INE VENIPUNCTURE 05/31/2013 85139 CBC 05/31/2013 94255 MAGNESIUM 05/31/2013 [id number] GF R CALC (RESULT ONLY) 05/31/2013 97365 BMP 05/31/2013 J2930 SOLU MEDROL INJ 06/03/2013 18382 THER APUTIC INJ SQ/IM 06/03/2013 16891 STRE P A (IN-HOUSE) 06/11/2013 17417 SALOMON URE BLOOD OXYGEN LEVEL 06/11/2013 07573 OXIMETRY 07/06/2013 64644 VENO US DOPPLER UNILATERAL/LIMITED 07/28/2013 39096 OXIMETRY 08/05/2013 41994 A1C (IN-HOUSE) 08/05/2013 G0008 FLU ADMINISTRATION (MEDICARE ONLY) 08/05/2013 29459 ROUT INE VENIPUNCTURE 09/07/2013 [id number] GF R CALC (RESULT ONLY) 09/07/2013 76235 BMP 09/07/2013 63050 XRAY CHEST 2 VIEW 09/08/2013 73578 ROUT INE VENIPUNCTURE 10/01/2013 52800 OXIMETRY 10/01/2013 53322 BMP 10/01/2013 6241965 GF R CALC (RESULT ONLY) 10/01/2013 12347 BNP 10/02/2013 63055 ROUT INE VENIPUNCTURE 10/26/2013 61264 UA L DANIEL DIP 10/26/2013 94023 BMP 11/01/2013 94437 MAGNESIUM 11/01/2013 65094 CULT URE URINE 11/01/2013 28388 OXIMETRY 11/01/2013 84021 OXIMETRY 11/14/2013 35752 OXIMETRY 11/15/2013 82302 ROUT INE VENIPUNCTURE 12/03/2013 [id number] GF R CALC (RESULT ONLY) 12/03/2013 17175 MAGNESIUM 12/03/2013 76675 BMP 12/03/2013 58450 ROUT INE VENIPUNCTURE 12/13/2013 [id number] GF R CALC (RESULT ONLY) 12/13/2013 73556 BMP 12/13/2013 77163 OXIMETRY 12/20/2013 [facility] 12/20/2013 22557 A1C (IN-HOUSE) 12/20/2013 60798 THER APUTIC INJ SQ/IM 12/28/2013 J0696 ROCE PHIN INJ 1 g 12/28/2013 20514 CULT URE WOUND (AEROBIC) 12/28/2013 91568 OXIMETRY 01/10/2014 70221 ROUT INE VENIPUNCTURE 01/17/2014 72317 CULT URE WOUND (AEROBIC) 01/17/2014 [id number] GF R CALC (RESULT ONLY) 01/17/2014 74608 CMP 01/17/2014 02611 LIPI D PANEL 01/17/2014 37983 TSH 01/17/2014 48709 CBC 01/17/2014 31879 ROUT INE VENIPUNCTURE 01/31/2014 46769 CBC 01/31/2014 21446 OXIMETRY 02/02/2014 65258 XRAY CHEST 2 VIEW 02/02/2014 06315 XRAY CHEST 2 VIEW 02/15/2014 75614 ROUT INE VENIPUNCTURE 03/07/2014 33651 OXIMETRY 03/07/2014 [id number] GF R CALC (RESULT ONLY) 03/07/2014 55469 CMP 03/07/2014 32265 CBC 03/07/2014 98745 OXIMETRY 03/21/2014 11001 ROUT INE VENIPUNCTURE 05/17/2014 13410 OXIMETRY 05/17/2014 [facility] [place]/17/[place] [id number] GF R CALC (RESULT ONLY) 05/18/2014 26150 CMP 05/18/2014 95630 OXIMETRY 06/17/2014 84246 MRI SPINE (LUMBAR) W/O CONTRAST 07/29/2014 91964 OXIMETRY 07/29/2014 85818 THER APUTIC INJ SQ/IM 07/29/2014 J1885 CALLIE DOL INJ 07/29/2014 17586 IV I NFUSION 09/02/2014 J1940 furo semide 10 mg/mL solution 09/02/2014 J2930 SOLU MEDROL INJ 09/02/2014 13413 OXIMETRY 09/02/2014 37604 OXIMETRY 09/07/2014 55814 ROUT INE VENIPUNCTURE 09/08/20141259650 GF R CALC (RESULT ONLY) 09/08/2014 85952 BMP 09/08/2014 63581 OXIMETRY 09/21/2014 47426 OXIMETRY 09/28/2014 21611 PET SCAN, FULL BODY 10/05/2014 03485 OXIMETRY 10/05/2014 [facility] 10/05/2014 96.04 INSE RT ENDOTRACHEAL TUBE 10/07/2014 96.71 CONT INUOUS INVASIVE MECHANICAL VENTILATI 10/07/2014 27945 OXIMETRY 11/04/2014 Results Test Result Range Complete urinalysis with reflex to cultu re - 08/06/16 07:48 Urine color determination YELLOW NRG Urine clarity determination SLIGHTLY CLOUDY NRG Urine pH measurement by test strip 6 5-9 Specific gravity of urine by test strip 1.015 1.016-1.022 Urine protein assay by test strip, semi-quantitative NEGATIVE NEGATIVE Urine glucose detection by automated test strip NE GATIVE NEGATIVE Erythrocytes detection in urine sediment by light micr oscopy NEGATIVE NEGATIVE Urine ketones detection by automated test strip NE GATIVE NEGATIVE Urine nitrite detection by test strip NEGATIVE NEGATIVE Urine total bilirubin detection by test strip NEGA TIVE NEGATIVE Urine urobilinogen measurement by automated test strip (mass/volume) NORMAL NORMAL Urine leukocyte esterase detection by dipstick 1+ NEGATIVE Automated urine sediment erythrocyte cou nt by microscopy (number/high power field) NONE NRG Automated urine sediment leukocyte count by microscopy (number/high power field) [HPF] NRG Bacteria detection in urine sediment by light microsco py FEW NRG Squamous epithelial cells detection in u rine sediment by light microscopy 25-50 NRG Crystals detection in urine sediment by light microsco py NONE NRG Casts detection in urine sediment by light microscopy NONE NRG Mucus detection in urine sediment by light microscopy NEGATIVE NRG Complete urinalysis with reflex to culture NO NRG Lipid 1996 panel - 08/06/16 07:48 Serum or plasma triglyceride measurement (mass/volume) 237 mg/dL <150 Serum or plasma cholesterol measurement (mass/volume) 212 mg/dL < 200 Serum or plasma cholesterol in HDL measurement (mass/v olume) 41 mg/dL 40-60 Cholesterol in LDL [mass/volume] in serum or plasma by direct assay 136 mg/dL 1-129 Serum or plasma cholesterol in VLDL measurement (mass/ volume) 47 mg/dL 5-40 Hemoglobin A1c - 08/06/16 07:48 Hemoglobin A1c 5.0 % 4.5-6.2 THYROID STIMULATING HORMONE - 08/06/16 0 7:48 THYROID STIMULATING HORMONE 3.13 u[iU]/mL 0.35-4.94 Serum or plasma thyroxine (T4) free salomon urement (mass/volume) - 08/06/16 07:48 Serum or plasma thyroxine (T4) free measurement (mass/ volume) 0.94 ng/dL 0.70-1.48 Serum or plasma lactate measurement (mol es/volume) - 08/19/16 00:20 Serum or plasma lactate measurement (moles/volume) 2.7 mmol/L 0.5-2.0 Complete blood count (CBC) with automate d white blood cell (WBC) differential - 08/19/16 21:52 Blood leukocytes automated count (number/volume) 18.0 10*3/uL 4.3-11.0 Blood erythrocytes automated count (number/volume) 4.79 10*6/uL 4.35-5.85 Venous blood hemoglobin measurement (mass/volume) 13.7 g/dL 11.5-16.0 Blood hematocrit (volume fraction) 43 % 35-52 Automated erythrocyte mean corpuscular volume 91 [ foz_us] 80-99 Automated erythrocyte mean corpuscular h emoglobin (mass per erythrocyte) 29 pg 25-34 Automated erythrocyte mean corpuscular h emoglobin concentration measurement (mass/volume) 32 g/dL 32-36 Automated erythrocyte distribution width ratio 14. 6 % 10.0- 14.5 Automated blood platelet count (count/volume) 381 10*3/uL [...] 10*3 1.0-4.0 Blood monocytes automated count (number/volume) 0. 6 10*3 0.0-1.0 Automated eosinophil count 0.2 10*3/uL 0 .0-0.3 Automated blood basophil count (count/volume) 0.0 10*3/uL 0.0-0.1 Blood manual differential performed dete ction - 08/19/16 21:52 Blood monocytes/100 leukocytes 3 [...] NRG Whole blood basic metabolic panel - 07/24 05/07 21:52 Serum or plasma sodium measurement (moles/volume) 141 mmol/L 135-145 Serum or plasma potassium measurement (moles/volume) 4.1 mmol/L 3.6-5.0 Serum or plasma chloride measurement (moles/volume) 104 mmol/L 98-107 Carbon dioxide 25 mmol/L 21-32 Serum or plasma anion gap determination (moles/volume) 12 mmol/L 5-14 Serum or plasma urea nitrogen measurement (mass/volume ) 8 mg/dL 7-18 Serum or plasma creatinine measurement (mass/volume) 0.72 mg/dL 0.60-1.30 Serum or plasma urea nitrogen/creatinine mass ratio 11 NRG Serum or plasma creatinine measurement w ith calculation of estimated glomerular filtration rate > NRG Serum or plasma glucose measurement (mass/volume) 114 mg/dL 70-105 Serum or plasma calcium measurement (mass/volume) 9.5 mg/dL 8.5-10.1 Arterial blood gas measurement - 6 22:11 Blood pCO2 47 mm[Hg] 35-45 Blood pO2 73 mm[Hg] 79-93 Arterial blood bicarbonate measurement (moles/volume) 28 mmol/L 23-27 Arterial blood base excess by calculation 3.0 mmol /L -2.5-2.5 Arterial blood oxygen saturation measurement 96 % 94-100 * Inhaled oxygen flow rate 2L NRG Arterial blood pH measurement with patient temperature correction 7.40 7.37-7.43 Arterial blood carbon dioxide, total measurement (mole s/volume) 29.7 mmol/L 21.0-31.0 Body site RT RAD NRG Assessment of wrist artery patency prior to arterial p uncture YES-POS NRG Setting of ventilation mode NO NR G Measurement of body temperature 99.5 NRG Blood lactic acid measurement (moles/vol ume) - 08/19/16 22:17 Blood lactic acid measurement (moles/volume) 2.3 m mol/L 0.5- 2.0 Bacterial blood culture - 08/19/16 22:17 FREE TEXT EXTERNAL SEE COMMENTS NRG QUANTITY OF GROWTH Isolated NRG Bacterial blood culture [id number] NRG Bacterial blood culture - 08/19/16 22:20 Bacterial blood culture NG NRG Serum or plasma lactate measurement (mol es/volume) - 08/20/16 00:20 Serum or plasma lactate measurement (moles/volume) 2.7 mmol/L 0.5-2.0 Complete blood count (CBC) with automate d white blood cell (WBC) differential - 08/20/16 04:50 Blood leukocytes automated count (number/volume) 14.8 10*3/uL 4.3-11.0 Blood erythrocytes automated count (number/volume) 4.43 10*6/uL 4.35-5.85 Venous blood hemoglobin measurement (mass/volume) 12.8 g/dL 11.5-16.0 Blood hematocrit (volume fraction) 41 % 35-52 Automated erythrocyte mean corpuscular volume 91 [ foz_us] 80-99 Automated erythrocyte mean corpuscular h emoglobin (mass per erythrocyte) 29 pg 25-34 Automated erythrocyte mean corpuscular h emoglobin concentration measurement (mass/volume) 32 g/dL 32-36 Automated erythrocyte distribution width ratio 14. 4 % 10.0- 14.5 Automated blood platelet count (count/volume) 334 10*3/uL [...] 10*3 1.0-4.0 Blood monocytes automated count (number/volume) 0. 1 10*3 0.0-1.0 Automated eosinophil count 0.0 10*3/uL 0 .0-0.3 Automated blood basophil count (count/volume) 0.0 10*3/uL 0.0-0.1 Capillary blood glucose measurement by g lucometer (mass/volume) - 08/20/16 04:59 Capillary blood glucose measurement by glucometer (mas s/volume) 160 mg/dL 70-110 Automated blood complete blood count ( mogram) panel - 12/04/16 08:48 Blood leukocytes automated count (number/volume) 18.4 10*3/uL 4.3-11.0 Blood erythrocytes automated count (number/volume) 4.29 10*6/uL 4.35-5.85 Venous blood hemoglobin measurement (mass/volume) 11.9 g/dL 11.5-16.0 Blood hematocrit (volume fraction) 38 % 35-52 Automated erythrocyte mean corpuscular volume 89 [ foz_us] 80-99 Automated erythrocyte mean corpuscular h emoglobin (mass per erythrocyte) 28 pg 25-34 Automated erythrocyte mean corpuscular h emoglobin concentration measurement (mass/volume) 31 g/dL 32-36 Automated erythrocyte distribution width ratio 16. 1 % 10.0- 14.5 Automated blood platelet count (count/volume) 395 10*3/uL [...] 5-14 Serum or plasma urea nitrogen measurement (mass/volume ) 9 mg/dL 7-18 Serum or plasma creatinine measurement (mass/volume) 0.73 mg/dL 0.60-1.30 Serum or plasma urea nitrogen/creatinine mass ratio 12 NRG Serum or plasma creatinine measurement w ith calculation of estimated glomerular filtration rate > NRG Serum or plasma glucose measurement (mass/volume) 97 mg/dL 70-105 Serum or plasma calcium measurement (mass/volume) 8.9 mg/dL 8.5-10.1 Serum or plasma total bilirubin measurement (mass/volu me) 0.2 mg/dL 0.1-1.0 Serum or plasma alkaline phosphatase malika surement (enzymatic activity/volume) 155 U/L 40-136 Serum or plasma aspartate aminotransfera se measurement (enzymatic activity/volume) 14 U/L 5-34 Serum or plasma alanine aminotransferase measurement (enzymatic activity/volume) 17 U/L 0-55 Serum or plasma protein measurement (mass/volume) 6.5 g/dL 6.4-8.2 Serum or plasma albumin measurement (mass/volume) 3.8 g/dL 3.2-4.5 Lipid 1996 panel - 12/04/16 08:48 Serum or plasma triglyceride measurement (mass/volume) 110 mg/dL <150 Serum or plasma cholesterol measurement (mass/volume) 132 mg/dL < 200 Serum or plasma cholesterol in HDL measurement (mass/v olume) 41 mg/dL 40-60 Cholesterol in LDL [mass/volume] in serum or plasma by direct assay 76 mg/dL 1-129 Serum or plasma cholesterol in VLDL measurement (mass/ volume) 22 mg/dL 5-40 Complete blood count (CBC) with automate d white blood cell (WBC) differential - 12/13/16 18:29 Blood leukocytes automated count (number/volume) 13.5 10*3/uL 4.3-11.0 Blood erythrocytes automated count (number/volume) 4.36 10*6/uL 4.35-5.85 Venous blood hemoglobin measurement (mass/volume) 12.1 g/dL 11.5-16.0 Blood hematocrit (volume fraction) 39 % 35-52 Automated erythrocyte mean corpuscular volume 88 [ foz_us] 80-99 Automated erythrocyte mean corpuscular h emoglobin (mass per erythrocyte) 28 pg 25-34 Automated erythrocyte mean corpuscular h emoglobin concentration measurement (mass/volume) 31 g/dL 32-36 Automated erythrocyte distribution width ratio 16. 1 % 10.0- 14.5 Automated blood platelet count (count/volume) 358 10*3/uL [...] 10*3 1.0-4.0 Blood monocytes automated count (number/volume) 0. 7 10*3 0.0-1.0 Automated eosinophil count 0.2 10*3/uL 0 .0-0.3 Automated blood basophil count (count/volume) 0.1 10*3/uL 0.0-0.1 Streptococcus pyogenes antigen detection - 05/29/17 14:30 Streptococcus pyogenes antigen detection NEGATIVE NEGATIVE Bacterial throat culture - 05/29/17 14:3 0 Bacterial throat culture NBS NR Arterial blood gas measurement - 7 16:05 Blood pCO2 49 mm[Hg] 35-45 Blood pO2 66 mm[Hg] 79-93 Arterial blood bicarbonate measurement (moles/volume) 27 mmol/L 23-27 Arterial blood base excess by calculation 1.8 mmol /L -2.5-2.5 Arterial blood oxygen saturation measurement 94 % 94-100 * Inhaled oxygen flow rate 3.5L NRG Arterial blood pH measurement with patient temperature correction 7.35 7.37-7.43 Arterial blood carbon dioxide, total measurement (mole s/volume) 28.3 mmol/L 21.0-31.0 Body site RR NRG Assessment of wrist artery patency prior to arterial p uncture YES-POS NRG Setting of ventilation mode NO NR G Measurement of body temperature 98.7 NRG Complete blood count (CBC) with automate d white blood cell (WBC) differential - 06/01/17 16:15 Blood leukocytes automated count (number/volume) 12.2 10*3/uL 4.3-11.0 Blood erythrocytes automated count (number/volume) 4.40 10*6/uL 4.35-5.85 Venous blood hemoglobin measurement (mass/volume) 12.5 g/dL 11.5-16.0 Blood hematocrit (volume fraction) 41 % 35-52 Automated erythrocyte mean corpuscular volume 93 [ foz_us] 80-99 Automated erythrocyte mean corpuscular h emoglobin (mass per erythrocyte) 28 pg 25-34 Automated erythrocyte mean corpuscular h emoglobin concentration measurement (mass/volume) 31 g/dL 32-36 Automated erythrocyte distribution width ratio 14. 9 % 10.0- 14.5 Automated blood platelet count (count/volume) 326 10*3/uL [...] 10*3 1.0-4.0 Blood monocytes automated count (number/volume) 0. 7 10*3 0.0-1.0 Automated eosinophil count 0.1 10*3/uL 0 .0-0.3 Automated blood basophil count (count/volume) 0.1 10*3/uL 0.0-0.1 PT panel in platelet poor plasma by coag ulation assay - 06/01/17 16:15 Prothrombin time (PT) in platelet poor plasma by coagu lation assay 12.5 s 12.2-14.7 INR in platelet poor plasma or blood by coagulation as say 0.9 0.8-1.4 Activated partial thromboplastin time (a PTT) in platelet poor plasma bycoagulation assay - 06/01/17 16:15 Activated partial thromboplastin time (a PTT) in platelet poor plasma bycoagulation assay 32 s 24-35 Comprehensive metabolic panel - 06/01/17 16:15 Serum or plasma sodium measurement (moles/volume) 142 mmol/L 135-145 Serum or plasma potassium measurement (moles/volume) 3.8 mmol/L 3.6-5.0 Serum or plasma chloride measurement (moles/volume) 106 mmol/L 98-107 Carbon dioxide 26 mmol/L 21-32 Serum or plasma anion gap determination (moles/volume) 10 mmol/L 5-14 Serum or plasma urea nitrogen measurement (mass/volume ) 8 mg/dL 7-18 Serum or plasma creatinine measurement (mass/volume) 0.71 mg/dL 0.60-1.30 Serum or plasma urea nitrogen/creatinine mass ratio 11 NRG Serum or plasma creatinine measurement w ith calculation of estimated glomerular filtration rate > NRG Serum or plasma glucose measurement (mass/volume) 90 mg/dL 70-105 Serum or plasma calcium measurement (mass/volume) 8.7 mg/dL 8.5-10.1 Serum or plasma total bilirubin measurement (mass/volu me) 0.3 mg/dL 0.1-1.0 Serum or plasma alkaline phosphatase malika surement (enzymatic activity/volume) 120 U/L 40-136 Serum or plasma aspartate aminotransfera se measurement (enzymatic activity/volume) 11 U/L 5-34 Serum or plasma alanine aminotransferase measurement (enzymatic activity/volume) 11 U/L 0-55 Serum or plasma protein measurement (mass/volume) 6.4 g/dL 6.4-8.2 Serum or plasma albumin measurement (mass/volume) 3.7 g/dL 3.2-4.5 Magnesium - 06/01/17 16:15 Magnesium 1.8 mg/dL 1.8-2.4 Serum or plasma creatine kinase measurem ent (enzymatic activity/volume) - 06/01/17 16:15 Serum or plasma creatine kinase measurem ent (enzymatic activity/volume) 23 U/L 29-168 Serum or plasma creatine kinase MB measu rement (enzymatic activity/volume) - 06/01/17 16:15 Serum or plasma creatine kinase MB measu rement (enzymatic activity/volume) 0.6 ng/mL <6.6 Serum or plasma troponin i.cardiac measu rement (mass/volume) - 06/01/17 16:15 Serum or plasma troponin i.cardiac measurement (mass/v olume) < ng/mL <0.30 Serum or plasma amylase measurement (enz ymatic activity/volume) - 06/01/17 16:15 Serum or plasma amylase measurement (enzymatic activit y/volume) 27 U/L 25-125 Serum or plasma lithium measurement (mol es/volume) - 06/01/17 16:15 BNP level 312.2 pg/mL <100.0 Lipase - 06/01/17 16:15 Lipase 9 U/L 8-78 Blood CBC with ordered manual differenti al panel - 06/01/17 18:43 Blood leukocytes automated count (number/volume) 12.5 10*3/uL 4.3-11.0 Blood erythrocytes automated count (number/volume) 4.43 10*6/uL 4.35-5.85 Venous blood hemoglobin measurement (mass/volume) 12.8 g/dL 11.5-16.0 Blood hematocrit (volume fraction) 41 % 35-52 Automated erythrocyte mean corpuscular volume 93 [ foz_us] 80-99 Automated erythrocyte mean corpuscular h emoglobin (mass per erythrocyte) 29 pg 25-34 Automated erythrocyte mean corpuscular h emoglobin concentration measurement (mass/volume) 31 g/dL 32-36 Automated erythrocyte distribution width ratio 14. 8 % 10.0- 14.5 Automated blood platelet count (count/volume) 326 10*3/uL [...] 10*3 1.0-4.0 Blood monocytes automated count (number/volume) 0. 6 10*3 0.0-1.0 Automated eosinophil count 0.2 10*3/uL 0 .0-0.3 Automated blood basophil count (count/volume) 0.1 10*3/uL 0.0-0.1 Manual blood segmented neutrophils/100 leukocytes 80 % NRG Manual blood lymphocytes/100 leukocytes 12 % NRG Blood stomatocytes detection by light microscopy M ODERATE NRG Blood blood smear finding identification by light micr oscopy NRG Activated partial thromboplastin time (a PTT) in platelet poor plasma bycoagulation assay - 06/01/17 18:43 Activated partial thromboplastin time (a PTT) in platelet poor plasma bycoagulation assay 31 s 24-35 Serum or plasma troponin i.cardiac measu rement (mass/volume) - 06/01/17 18:43 Serum or plasma troponin i.cardiac measurement (mass/v olume) < ng/mL <0.30 Myoglobin, serum - 06/01/17 18:43 Myoglobin, serum 29.8 ng/mL 10.0-92.0 Complete urinalysis with reflex to cultu re - 06/02/17 00:01 Urine color determination YELLOW NRG Urine clarity determination CLEAR NR G Urine pH measurement by test strip 6.5 5-9 Specific gravity of urine by test strip 1.010 1.016-1.022 Urine protein assay by test strip, semi-quantitative NEGATIVE NEGATIVE Urine glucose detection by automated test strip NE GATIVE NEGATIVE Erythrocytes detection in urine sediment by light micr oscopy NEGATIVE NEGATIVE Urine ketones detection by automated test strip NE GATIVE NEGATIVE Urine nitrite detection by test strip NEGATIVE NEGATIVE Urine total bilirubin detection by test strip NEGA TIVE NEGATIVE Urine urobilinogen measurement by automated test strip (mass/volume) NORMAL NORMAL Urine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
== END 2020-04-08 23:27 | disposition home or self-care (01) ==
LOC: EDUNIT# 22:32 → ER 22:34
DX: L25.9 Unspecified contact dermatitis, unspecified cause (principal); I50.9 Heart failure, unspecified; E78.00 Pure hypercholesterolemia, unspecified; E11.40 Type 2 diabetes mellitus with diabetic neuropathy, unspecified; E66.01 Morbid (severe) obesity due to excess calories; R60.9 Edema, unspecified; N39.0 Urinary tract infection, site not specified; F17.210 Nicotine dependence, cigarettes, uncomplicated; Z68.43 Body mass index [BMI] 50.0-59.9, adult; Z88.6 Allergy status to analgesic agent; Z88.1 Allergy status to other antibiotic agents; Z82.49 Family history of ischemic heart disease and other diseases of the circulatory system
CPT/HCPCS: 99284

== ENCOUNTER 2020-07-21 20:38 | Emergency (ER) | payer MEDICARE, MEDICAID ==
[~2020-07-21] VITALS: Ht 167.7 cm; Wt 140.6 kg
[~2020-07-21 20:38] MED LIST changes: -OXYC-465 PO; +OXYC-556 PO; -PANT40TA3 PO; +PANT40TA52 PO
[2020-07-21 21:00] VITALS: BP 137/72
--- NOTE | 2020-07-21 21:24 | ED Fall/Injury ---
General Chief Complaint: Trauma-Non Activation Stated Complaint: FALL;BACK PAIN Nursing Triage Note: PT AMB TO TRIAGE WITH COMPLAINT OF FALL. STATES WAS SITTING GOING THROUGH THINGS AND SLIPPED LANDING ON TAILBONE. HAS TRIED TYLENOL AND IBUPROFEN WITH NO RELIEF. Source: patient Exam Limitations: no limitations History of Present Illness Date Seen by Provider: Jul 21, 2020 Time Seen by Provider: 21:23 Initial Comments To ER with reports of fall and low back pain. The fall occurred this morning. She landed on her buttock when she fell. Occurred: this morning Severity: moderate Injuries/Pain Location: back Context: unknown Associated Symptoms (Fall): Denies Symptoms Allergies and Home Medications Allergies Coded Allergies: acetaminophen (Verified Allergy, Unknown, 06/09/14) erythromycin base (Verified Allergy, Unknown, PT CAN TAKE AZITHROMYCIN, 06/09/14) minocycline (Verified Adverse Reaction, Mild, N/V, 06/09/14) Home Medications Atorvastatin Calcium 20 Mg Tablet, 20 MG PO DAILY, (Reported) LAST FILLED #30 01-08-17 Carvedilol 3.125 Mg Tablet, 3.125 MG PO BID, (Reported) LAST FILLED #60 01-08-17 Cefdinir 300 Mg Capsule, 300 MG PO BID Prescribed by: KRISTEN JACKSON on 09/23/19 0057 Furosemide 40 Mg Tablet, 40 MG PO q48 HRS Prescribed by: BEV BAIN on 06/03/17 1414 Levofloxacin 500 Mg Tablet, 500 MG PO DAILY Prescribed by: KRISTEN JACKSON on 09/23/19 0058 Potassium Chloride 20 Meq Tab.er.prt, 20 MEQ PO Q48H Prescribed by: BEV BAIN on 06/03/17 1414 Prednisone 20 Mg Tab, 40 MG PO DAILY Prescribed by: YOBANY CLAYTON on 04/08/20 5868 Patient Home Medication List Home Medication List Reviewed: Yes Review of Systems Review of Systems Constitutional: see HPI Eyes: No Symptoms Reported Ears, Nose, Mouth, Throat: no symptoms reported Respiratory: no symptoms reported Cardiovascular: no symptoms reported Genitourinary: no symptoms reported Musculoskeletal: see HPI, back pain Skin: no symptoms reported Psychiatric/Neurological: No Symptoms Reported Past Mwnewoi-Wxmayh-Bxsvnb Hx Patient Social History Alcohol Use: Denies Use Recreational Drug Use: No Smoking Status: Current Everyday Smoker Type Used: Cigarettes 2nd Hand Smoke Exposure: Yes Recent Foreign Travel: No Contact w/Someone Who Travel: No Recent Infectious Disease Expo: No Recent Hopitalizations: No Immunizations Up To Date Tetanus Booster (TDap): Less than 5yrs Date of Pneumonia Vaccine: Jun 22, 2016 Date of Influenza Vaccine: Jun 22, 2016 Seasonal Allergies Seasonal Allergies: No Past Medical History Surgeries: Yes Appendectomy, Gallbladder, Orthopedic, Tonsillectomy Respiratory: Yes (sarcoidosis) Sleep Apnea, COPD Currently Using CPAP: No Currently Using BIPAP: No Cardiac: Yes (CHF;PULMONARY HTN) Chronic Edema/Swelling, High Cholesterol Neurological: Yes Headaches /Migraines, Neuropathy Reproductive Disorders: No Female Reproductive Disorders: Menstrual Problems, Ovarian Cyst Sexually Transmitted Disease: No HIV/AIDS: No Genitourinary: Yes Renal Failure, UTI-Chronic Gastrointestinal: Yes (FATTY LIVER DISEASE) Gastroesophageal Reflux, Liver Disease/Jaundice, Gastrointestinal Bleed, Esophagitis, Hiatal Hernia Musculoskeletal: Yes ( RESTLESS LEG SYNDROME) Arthritis, Fibromyalgia, Chronic Back Pain Endocrine: Yes (MORBID OBESITY) Hypothyroidsim, Diabetes, Non-Insulin dep HEENT: Yes ("VOCAL CORD DYSFUNCTION" ) Dysphagia Cancer: No Psychosocial: Yes (NARCOTIC OVERDOSE 12/2012) Anxiety, Depression Integumentary: Yes (CHRONIC LEFT LEG CELLULITIS) Recent Skin Changes Blood Disorders: No Adverse Reaction/Blood Tranf: No Family Medical History Family history: Hypertension 09 SISTER (43 ) Family history: Thyroid disorder 03 MOTHER (41 ) Stroke 03 FATHER (47 ) Heart Disease, Hypertension Physical Exam Vital Signs Vital Signs - First Documented 07/21/20 21:00 Temp 36.6 Pulse 85 Resp 20 B/P (MAP) 137/72 (93) Pulse Ox 90 O2 Delivery Room Air Capillary Refill : Less Than 3 Seconds Height, Weight, BMI Height: 5'6.00" Weight: 310lbs. 8.0oz. 140.144050pu; 49.00 BMI Method:Stated General Appearance: WD/WN, no apparent distress Respiratory: lungs clear, normal breath sounds, no respiratory distress, no accessory muscle use Gastrointestinal: normal bowel sounds, soft Extremities: non-tender Neurologic/Psychiatric: alert, normal mood/affect, oriented x 3 Skin: normal color, warm/dry Giovanna Coma Score Best Eye Response: (4) Open Spontaneously Best Verbal Response: (5) Oriented Best Motor Response: (6) Obeys Commands Giovanna Total: 15 Procedures/Interventions Suture Size: 5-0 Progress/Results/Core Measures Results/Orders My Orders Orders - ERICA MCPHERSON APRN Lumbar Spine - 2-3 Views (07/21/20 21:21) Ketorolac Injection (Toradol Injection) (07/21/20 21:30) Orphenadrine Inj (Ed Only) (Norflex Inje (07/21/20 21:30) Vital Signs/I&O 07/21/20 21:00 Temp 36.6 Pulse 85 Resp 20 B/P (MAP) 137/72 (93) Pulse Ox 90 O2 Delivery Room Air Blood Pressure Mean: 93 Departure Impression Primary Impression: Acute low back pain Disposition: HOME, SELF-CARE Condition: Stable Departure-Patient Inst. Decision time for Depature: 21:53 Referrals: [facility] [place] Primary Care Physician Patient Instructions: Low Back Pain (DC) Add. Discharge Instructions: 1. Return to Er for any concerns 2. Follow up with your doctor next week All discharge instructions reviewed with patient and/or family. Voiced understanding. Scripts Naproxen (Naprosyn) 500 Mg Tablet 500 MG PO BID, #30 TAB 0 Refills Prov: ERICA MCPHERSON APRN 07/21/20 Methocarbamol (Robaxin-750) 750 Mg Tablet 750 MG PO Q4H PRN for PAIN-MODERATE (5-7), #20 TAB Prov: ERICA MCPHERSON APRN 07/21/20 ERICA MCPHERSON APRN Jul 21, 2020 21:24
[2020-07-21] MEDS ORDERED: KETOROLAC 60 MG/2 ML VIAL IM ONE (21:30)
[2020-07-21] MEDS ORDERED: ORPHENADRINE 60 MG/2 ML (NORFLEX) AMP (ED ONLY) IM ONE (21:30)
--- NOTE | 2020-07-21 21:51 | Diagnostic Imaging Report ---
INDICATION: Fall, pain. COMPARISON: Radiographs of the abdomen dated 02/02/2013. TECHNIQUE: Three radiographs of the lumbar spine dated July 21, 2020. FINDINGS: Posterior decompression of L4 and L5 is again noted with bilateral posterior pedicle screws at this level. No evidence of hardware complication. An interbody disc device is present at L4/L5. Small riblets are noted associated with L1. Alignment of the lumbar spine is well maintained. Vertebral body heights are well maintained. Disc space heights are well maintained. The sacroiliac joints are intact. No acute fracture. IMPRESSION: Stable postsurgical changes within the lower lumbar spine without evidence of hardware complication or acute osseous abnormality. Dictated by: Dictated on workstation # [id number]
[2020-07-21] MEDS ORDERED: METH-313 PO (21:55)
[2020-07-21] MEDS ORDERED: NAPR-1071 PO (21:55)
== END 2020-07-21 22:00 | disposition home or self-care (01) ==
LOC: EDUNIT# 20:38 → ER 20:40
DX: M54.5 Low back pain (principal); R40.2410 Glasgow coma scale score 13-15, unspecified time; E66.01 Morbid (severe) obesity due to excess calories; J44.9 Chronic obstructive pulmonary disease, unspecified; E78.00 Pure hypercholesterolemia, unspecified; F17.210 Nicotine dependence, cigarettes, uncomplicated; Z68.42 Body mass index [BMI] 45.0-49.9, adult; Z82.49 Family history of ischemic heart disease and other diseases of the circulatory system; Z88.1 Allergy status to other antibiotic agents; Z88.6 Allergy status to analgesic agent; Z79.52 Long term (current) use of systemic steroids
CPT/HCPCS: 72100

== ENCOUNTER 2020-09-02 04:31 | Emergency (ER) | payer MEDICARE, MEDICAID ==
[~2020-09-02] VITALS: Ht 167.7 cm; Wt 141.2 kg
[~2020-09-02 04:31] MED LIST changes: -CLIN300C11 PO; +CLIN300C12 PO; +METH-313 PO; +NAPR-1071 PO
[2020-09-02 04:40] VITALS: BP 146/90
[2020-09-02] MEDS ORDERED: NAPR500T8 PO (04:52)
[2020-09-02] MEDS ORDERED: SULF1TAB35 PO (04:52)
[2020-09-02] MEDS ORDERED: MUPI22OI2 TP (04:52)
--- NOTE | 2020-09-02 04:52 | ED Integumentary General ---
General Chief Complaint: Skin/Wound Problems Stated Complaint: LEFT BREAST ABSCESS Source: patient History of Present Illness Date Seen by Provider: Sep 02, 2020 Time Seen by Provider: 04:43 Initial Comments PT ARRIVES VIA POV FROM HOME C/O SORE ON LEFT BREAST FOR THE LAST COUPLE OF DAYS HAS BEEN DRAINING A LITTLE BIT NO FEVER NO NAUSEA/VOMITING C/O INCREASING PAIN--HAS TAKEN TYLENOL AND IBUPROFEN--TOOK 1 TYLENOL AROUND 2330 TONIGHT, BUT DOES NOT KNOW WHEN SHE LAST TOOK IBUPROFEN HAS HAD SIMILAR IN THE PAST, ON HER ABDOMEN ALSO HAS HISTORY OF LEG CELLULITIS PT IS DIABETIC, STATES SHE USED TO BE ON INSULIN, BUT HAS NOT BEEN ON INSULIN FOR A COUPLE OF YEARS PCP: [facility] Allergies and Home Medications Allergies Coded Allergies: acetaminophen (Verified Allergy, Unknown, 06/09/14) erythromycin base (Verified Allergy, Unknown, PT CAN TAKE AZITHROMYCIN, 06/09/14) minocycline (Verified Adverse Reaction, Mild, N/V, 06/09/14) Home Medications Atorvastatin Calcium 20 Mg Tablet, 20 MG PO DAILY, (Reported) LAST FILLED #30 01-08-17 Carvedilol 3.125 Mg Tablet, 3.125 MG PO BID, (Reported) LAST FILLED #60 01-08-17 Cefdinir 300 Mg Capsule, 300 MG PO BID Prescribed by: KRISTEN JACKSON on 09/23/1956 Furosemide 40 Mg Tablet, 40 MG PO q48 HRS Prescribed by: BEV BAIN on 06/03/171413 Levofloxacin 500 Mg Tablet, 500 MG PO DAILY Prescribed by: KRISTEN JACKSON on 09/23/1957 Methocarbamol 750 Mg Tablet, 750 MG PO Q4H PRN for PAIN-MODERATE (5-7) Prescribed by: ERICA MCPHERSON on 07/21/202154 Mupirocin 22 Gm Oint...g., 22 GM TP BID Prescribed by: CHRISTY MAR on 09/02/20451 Naproxen 500 Mg Tablet, 500 MG PO BID Prescribed by: ERICA MCPHERSON on 07/21/202154 Naproxen 500 Mg Tablet.dr, 500 MG PO BID Prescribed by: CHRISTY MAR on 09/02/20451 Potassium Chloride 20 Meq Tab.er.prt, 20 MEQ PO Q48H Prescribed by: BEV BAIN on 06/03/171413 Prednisone 20 Mg Tab, 40 MG PO DAILY Prescribed by: YOBANY CLAYTON on 04/08/20 8313 Sulfamethoxazole/Trimethoprim 1 Each Tablet, 1 EACH PO BID Prescribed by: CHRISTY MAR on 09/02/20 0455 Patient Home Medication List Home Medication List Reviewed: Yes Review of Systems Review of Systems Constitutional: no symptoms reported Respiratory: no symptoms reported Cardiovascular: no symptoms reported Gastrointestinal: no symptoms reported Skin: see HPI Endocrine: No Symptoms Reported Past Kdbycmq-Zfczhn-Stvoux Hx Past Med/Social Hx: Reviewed and Corrections made Patient Social History Alcohol Use: Denies Use Recreational Drug Use: Yes (NARCOTIC OVERDOSE IN PAST) Drug of Choice: NARCOTIC OVERDOSE IN PAST Smoking Status: Current Everyday Smoker (? 2 PPD) Type Used: Cigarettes 2nd Hand Smoke Exposure: Yes Recent Hopitalizations: No Immunizations Up To Date Tetanus Booster (TDap): Less than 5yrs Date of Pneumonia Vaccine: Jun 22, 2016 Date of Influenza Vaccine: Jun 22, 2016 Seasonal Allergies Seasonal Allergies: No Past Medical History Surgeries: Yes Appendectomy, Gallbladder, Orthopedic, Tonsillectomy Respiratory: Yes (sarcoidosis) Sleep Apnea, COPD Currently Using CPAP: No Currently Using BIPAP: No Cardiac: Yes (CHF;PULMONARY HTN) Chronic Edema/Swelling, High Cholesterol, Hypertension Neurological: Yes Headaches /Migraines, Neuropathy Reproductive Disorders: No Female Reproductive Disorders: Menstrual Problems, Ovarian Cyst Sexually Transmitted Disease: No HIV/AIDS: No Genitourinary: Yes Renal Failure, UTI-Chronic Gastrointestinal: Yes (FATTY LIVER DISEASE) Gastroesophageal Reflux, Liver Disease/Jaundice, Gastrointestinal Bleed, Esophagitis, Hiatal Hernia Musculoskeletal: Yes ( RESTLESS LEG SYNDROME) Arthritis, Fibromyalgia, Chronic Back Pain Endocrine: Yes (MORBID OBESITY) Hypothyroidsim, Diabetes, Non-Insulin dep HEENT: Yes ("VOCAL CORD DYSFUNCTION" ) Dysphagia Cancer: No Psychosocial: Yes (NARCOTIC OVERDOSE 12/2012) Anxiety, Depression Integumentary: Yes (CHRONIC LEFT LEG CELLULITIS) Blood Disorders: No Adverse Reaction/Blood Tranf: No Family Medical History Family history: Hypertension 09 SISTER (43 ) Family history: Thyroid disorder 03 MOTHER (41 ) Stroke 03 FATHER (47 ) Heart Disease, Hypertension SOCIAL HISTORY: -ETOH--DENIES USE -DRUGS--NARCOTIC OVERDOSE IN PAST -SMOKES > 2 PPD PAST SURGICAL HISTORY: -BACK SURGERY -KNEE SCOPE -MEDIASTINAL LYMPH NODE BIOPSY 12/2012 -VOCAL CORD SURGERY 06/2013 -CARDIAC CATH 2013--NO INTERVENTION PAST MEDICAL HISTORY: -HAS BEEN PREVIOUSLY DX WITH CHRONIC RESPIRATORY FAILURE WITH CO2 RETENTION AND HAS BEEN O2 DEPENDENT AND STEROID DEPENDENT IN THE PAST ( DENIES CURRENT USE OF O2 OR STEROIDS) -HAS BEEN ON BIPAP AT HS IN PAST, BUT PT IS NO LONGER USING -HAS HAD DX OF SARCOIDOSIS IN THE PAST, BUT IS UNCLEAR IF THIS HAS ACTUALLY BEEN VERIFIED -MEDIASTINAL LYMPHADENOPATHY--BX NEGATIVE FOR MALIGNANCY -VOCAL CORD DYSFUNCTION--S/P SURGERY -CHOLECYSTECTOMY -APPENDECTOMY -TONSILLECTOMY PT HAS LONG HISTORY OF NON-COMPLICANCE IN ALL ASPECTS OF CARE, AND HAS BEEN FIRED FROM MULTIPLE PROVIDERS IN THE PAST FOR THIS Physical Exam Vital Signs Vital Signs - First Documented 09/02/20 04:40 Temp 36.1 Pulse 84 Resp 20 B/P (MAP) 146/90 (108) Pulse Ox 92 O2 Delivery Room Air Capillary Refill : General Appearance: WD/WN, no apparent distress, other (MORBIDLY OBESE. TALKS IN A WHISPER--NORMAL FOR PT. PT IS NOT DYSPNEIC AND DOES NOT ARRIVE WEARING HOME O2. O2 SATS IN THE 90'S ON ROOM AIR. ) Skin: normal color, warm/dry, tattoos/piercings (MULTIPLE TATTOOS), other (LEFT BREAST WITH QUARTER-SIZED AREA OF ERYTHEMA AND INDURATION, WITH SUPERFICIAL PEELING OF SKIN. NO CENTRAL PUNCTATION OR SCAB FORMATION. NO FLUCTUANCE, NO DRAINAGE. NO STREAKS. AREA IS SUPERFICIAL AND DOES NOT APPEAR TO INVOLVE DEEP TISSUES OF BREAST , ON PALPATION. LOCATION IS APPROXIMATELY 5:00 ) Procedures/Interventions Suture Size: 5-0 Progress/Results/Core Measures Results/Orders My Orders Orders - CHRISTY MAR DO Sulfamethoxazole/Trimet Ds Tab (Bactrim (09/02/20 05:00) Naproxen Tablet (Naprosyn Tablet) (09/02/20 05:00) Medications Given in ED Current Medications Medications Dose Ordered Sig/Simon Route Start Time Stop Time Status Last Admin Dose Admin Naproxen 500 mg ONCE ONCE PO 09/02/20 05:00 09/02/20 05:01 09/02/20 04:54 500 MG Trimethoprim/ Sulfamethoxazole 1 ea ONCE ONCE PO 09/02/20 05:00 09/02/20 05:01 09/02/20 04:54 1 EA Vital Signs/I&O 09/02/20 09/02/20 04:40 04:54 Temp 36.1 36.1 Pulse 84 Resp 20 B/P (MAP) 146/90 (108) Pulse Ox 92 O2 Delivery Room Air Progress Progress Note : Progress Note NO DEFINITE ABSCESS OR AREA OF FLUCTUANCE REQUIRING I&D AT THIS TIME ADVISED PT THAT IT MAY NEED DRAINAGE AT SOME POINT, BUT IS NOT A FOCAL ABSCESS AT THIS TIME. ADVISED OF IMPORTANCE OF FOLLOW UP WITH [facility] FOR FURTHER CARE Departure Impression Primary Impression: Cellulitis of left breast Disposition: HOME, SELF-CARE Condition: Stable Departure-Patient Inst. Referrals: [facility] (PCP/Family) Primary Care Physician Patient Instructions: Cellulitis (Skin Infection), Adult ED, MRSA (DC) Add. Discharge Instructions: MOIST HEAT TO AREA AT 20 MINUTE INTERVALS DO NOT SQUEEZE, PICK AT, OR POKE THE AREA. IF AREA BEGINS TO DRAIN, START USING PRESCRIPTION ANTIBIOTIC OINTMENT TWICE A DAY AND APPLY FRESH DRESSING TWICE A DAY FOLLOW UP WITH [facility] IN 2-3 DAYS FOR FURTHER CARE All discharge instructions reviewed with patient and/or family. Voiced understanding. Scripts Mupirocin (Mupirocin) 22 Gm Oint...g. 22 GM TP BID, #1 TUBE Prov: CHIRSTY MAR DO 09/02/20 Naproxen (Naproxen) 500 Mg Tablet.dr 500 MG PO BID, #20 TAB Prov: CHRISTY MAR DO 09/02/20 Sulfamethoxazole/Trimethoprim (Bactrim Ds Tablet) 1 Each Tablet 1 EACH PO BID, #20 TAB Prov: CHRISTY MAR DO 09/02/20 CHRISTY MAR DO Sep 02, 2020 04:52
[2020-09-02] MEDS ORDERED: NAPROXEN 250 MG (NAPROSYN) TABLET PO ONE (05:00)
[2020-09-02] MEDS ORDERED: TRIM/SULFAMETH 160/800 (SEPTRA DS) TAB PO ONE (05:00)
== END 2020-09-02 04:55 | disposition home or self-care (01) ==
LOC: EDUNIT# 04:31 → ER 04:34
DX: N61.0 Mastitis without abscess (principal); E78.00 Pure hypercholesterolemia, unspecified; J44.9 Chronic obstructive pulmonary disease, unspecified; I11.0 Hypertensive heart disease with heart failure; I50.9 Heart failure, unspecified; E66.01 Morbid (severe) obesity due to excess calories; F17.210 Nicotine dependence, cigarettes, uncomplicated; Z82.49 Family history of ischemic heart disease and other diseases of the circulatory system; Z88.6 Allergy status to analgesic agent; Z88.1 Allergy status to other antibiotic agents; Z79.52 Long term (current) use of systemic steroids
CPT/HCPCS: 99283

== ENCOUNTER → 2020-11-27 | Outpatient (CLI) | payer MEDICARE, MEDICAID ==
[~2020-11-27] MED LIST changes: +MUPI22OI2 TP; +NAPR500T8 PO; +SULF1TAB35 PO
--- NOTE | 2020-11-27 13:16 | Diagnostic Imaging Report ---
Indication: Routine screening. Comparison is made with prior mammogram 09/17/2019. 2-D and 3-D bilateral screening mammography was performed with CAD. Scattered fibroglandular densities are identified bilaterally. Occasional benign calcifications are noted. No mass or malignant appearing microcalcifications are seen. Axillae are unremarkable. IMPRESSION: BI-RADS Category 2 No mammographic features suspicious for malignancy are identified. ACR BI-RADS Category 2: Benign findings. Result letter will be mailed to the patient. Note: At least 10% of breast cancer is not imaged by mammography. Dictated by: Dictated on workstation # [id number]
== END ==
LOC: RAD 11:00
PROVIDERS: ATTEND Nurse Practitioner Family
DX: Z12.31 Encounter for screening mammogram for malignant neoplasm of breast (principal); Z76.89 Persons encountering health services in other specified circumstances
CPT/HCPCS: 77063; 77067

== ENCOUNTER 2021-01-15 11:31 | Inpatient (IN) | payer MEDICARE, MEDICAID ==
[~2021-01-15] VITALS: Ht 167.7 cm; Wt 140.6 kg
[2021-01-15] MEDS ORDERED: ASPIRIN 81 MG CHEW (CHILDREN'S ASA) ONE (11:32)
[2021-01-15] MEDS ORDERED: NITROGLYCERIN 0.4 MG SL TABS BTL 25'S SL ONE (11:32)
[2021-01-15] MEDS ORDERED: ASPIRIN 81 MG CHEW (CHILDREN'S ASA) PO ONE (11:45)
[2021-01-15] MEDS: NITROGLYCERIN 0.4 MG SL TABS BTL 25'S SL PRN ×2 (11:48→12:45)
--- NOTE | 2021-01-15 11:49 | ED General ---
General Stated Complaint: CHEST TIGHTNESS X 2 DAYS, CHACON Source of Information: Patient Exam Limitations: No Limitations History of Present Illness Date Seen by Provider: Jan 15, 2021 Time Seen by Provider: 11:35 Initial Comments To ER with reports of chest tightness rated at 8 out of 10 described as a pressure constant since yesterday. She also has a headache. She has history of COPD and was formerly on home oxygen but does not require it anymore. She does have a history of CHF. She continues to smoke cigarettes. She denies any increased cough or wheezing. She had a [employer] Covid vaccine in [facility]. She has a history of diastolic congestive heart failure, COPD, obstructive sleep apnea. She has partial vocal cord paralysis after a mediastinal lymphadenopathy surgery followed by vocal cord surgery at the [facility]. She had a clean cardiac catheterization in 2013 with an ejection fraction in 2017 on echo of 60%. Timing/Duration: 1-2 Days Severity: Moderate Associated Systoms: Chest Pain, Shortness of Air Allergies and Home Medications Allergies Coded Allergies: acetaminophen (Verified Allergy, Unknown, 06/09/14) erythromycin base (Verified Allergy, Unknown, PT CAN TAKE AZITHROMYCIN, 06/09/14) minocycline (Verified Adverse Reaction, Mild, N/V, 06/09/14) Home Medications Atorvastatin Calcium 20 Mg Tablet, 20 MG PO DAILY, (Reported) LAST FILLED #30 01-08-17 Carvedilol 3.125 Mg Tablet, 3.125 MG PO BID, (Reported) LAST FILLED #60 01-08-17 Cefdinir 300 Mg Capsule, 300 MG PO BID Prescribed by: KRISTEN JACKSON on 09/23/19 0057 Furosemide 40 Mg Tablet, 40 MG PO q48 HRS Prescribed by: BEV BAIN on 06/03/17 1414 Levofloxacin 500 Mg Tablet, 500 MG PO DAILY Prescribed by: KRISTEN JACKSON on 09/23/19 0058 Methocarbamol 750 Mg Tablet, 750 MG PO Q4H PRN for PAIN-MODERATE (5-7) Prescribed by: ERICA MCPHERSON on 07/21/202154 Mupirocin 22 Gm Oint...g., 22 GM TP BID Prescribed by: CHRISTY MAR on 09/02/20 0452 Naproxen 500 Mg Tablet, 500 MG PO BID Prescribed by: ERICA MCPHERSON on 10/30/20 2155 Naproxen 500 Mg Tablet.dr, 500 MG PO BID Prescribed by: CHRISTY MAR on 09/02/20 0452 Potassium Chloride 20 Meq Tab.er.prt, 20 MEQ PO Q48H Prescribed by: BEV BAIN on 06/03/17 1414 Prednisone 20 Mg Tab, 40 MG PO DAILY Prescribed by: YOBANY CLAYTON on 04/08/20 2323 Sulfamethoxazole/Trimethoprim 1 Each Tablet, 1 EACH PO BID Prescribed by: CHRISTY MAR on 09/02/20 045 Patient Home Medication List Home Medication List Reviewed: Yes Review of Systems Review of Systems Constitutional: see HPI EENTM: see HPI Respiratory: see HPI, cough Cardiovascular: no symptoms reported Genitourinary: no symptoms reported Musculoskeletal: no symptoms reported Skin: no symptoms reported Psychiatric/Neurological: No Symptoms Reported Hematologic/Lymphatic: No Symptoms Reported Immunological/Allergic: no symptoms reported Past Liqkyni-Bzongb-Xezndc Hx Patient Social History Drug of Choice: NARCOTIC OVERDOSE IN PAST Type Used: Cigarettes 2nd Hand Smoke Exposure: Yes Recent Hopitalizations: No Immunizations Up To Date Tetanus Booster (TDap): Less than 5yrs Date of Pneumonia Vaccine: Jun 22, 2016 Date of Influenza Vaccine: Jun 22, 2016 Seasonal Allergies Seasonal Allergies: No Past Medical History Surgeries: Yes Appendectomy, Gallbladder, Orthopedic, Tonsillectomy Respiratory: Yes (sarcoidosis) Sleep Apnea, COPD Currently Using CPAP: No Currently Using BIPAP: No Cardiac: Yes (CHF;PULMONARY HTN) Chronic Edema/Swelling, High Cholesterol, Hypertension Neurological: Yes Headaches /Migraines, Neuropathy Reproductive Disorders: No Female Reproductive Disorders: Menstrual Problems, Ovarian Cyst Sexually Transmitted Disease: No HIV/AIDS: No Genitourinary: Yes Renal Failure, UTI-Chronic Gastrointestinal: Yes (FATTY LIVER DISEASE) Gastroesophageal Reflux, Liver Disease/Jaundice, Gastrointestinal Bleed, Esophagitis, Hiatal Hernia Musculoskeletal: Yes ( RESTLESS LEG SYNDROME) Arthritis, Fibromyalgia, Chronic Back Pain Endocrine: Yes (MORBID OBESITY) Hypothyroidsim, Diabetes, Non-Insulin dep HEENT: Yes ("VOCAL CORD DYSFUNCTION" ) Dysphagia Cancer: No Psychosocial: Yes (NARCOTIC OVERDOSE 12/2012) Anxiety, Depression Integumentary: Yes (CHRONIC LEFT LEG CELLULITIS) Blood Disorders: No Adverse Reaction/Blood Tranf: No Family Medical History Family history: Hypertension 09 SISTER (43 ) Family history: Thyroid disorder 03 MOTHER (41 ) Stroke 03 FATHER (47 ) Heart Disease, Hypertension SOCIAL HISTORY: -ETOH--DENIES USE -DRUGS--NARCOTIC OVERDOSE IN PAST -SMOKES > 2 PPD PAST SURGICAL HISTORY: -BACK SURGERY -KNEE SCOPE -MEDIASTINAL LYMPH NODE BIOPSY 12/2012 -VOCAL CORD SURGERY 06/2013 -CARDIAC CATH 2013--NO INTERVENTION PAST MEDICAL HISTORY: -HAS BEEN PREVIOUSLY DX WITH CHRONIC RESPIRATORY FAILURE WITH CO2 RETENTION AND HAS BEEN O2 DEPENDENT AND STEROID DEPENDENT IN THE PAST ( DENIES CURRENT USE OF O2 OR STEROIDS) -HAS BEEN ON BIPAP AT HS IN PAST, BUT PT IS NO LONGER USING -HAS HAD DX OF SARCOIDOSIS IN THE PAST, BUT IS UNCLEAR IF THIS HAS ACTUALLY BEEN VERIFIED -MEDIASTINAL LYMPHADENOPATHY--BX NEGATIVE FOR MALIGNANCY -VOCAL CORD DYSFUNCTION--S/P SURGERY -CHOLECYSTECTOMY -APPENDECTOMY -TONSILLECTOMY PT HAS LONG HISTORY OF NON-COMPLICANCE IN ALL ASPECTS OF CARE, AND HAS BEEN FIRED FROM MULTIPLE PROVIDERS IN THE PAST FOR THIS Physical Exam Vital Signs Vital Signs - First Documented 01/15/21 11:34 Temp 36.5 Pulse 88 Resp 15 B/P (MAP) 166/105 (125) Pulse Ox 95 O2 Delivery Nasal Cannula O2 Flow Rate 3.00 Capillary Refill : Height, Weight, BMI Height: 5'6.00" Weight: 310lbs. 8.0oz. 140.554889sv; 50.00 BMI Method:Stated General Appearance: No Apparent Distress, WD/WN, Obese, Other (Tachypneic but without accessory muscle use. Oxygen saturation 78% with good waveform upon arrival. She was given 3 L of supplemental oxygen with resultant increase in SPO2 up to 93%.) Eyes: Bilateral Eye Normal Inspection, Bilateral Eye PERRL, Bilateral Eye EOMI HEENT: PERRL/EOMI, TMs Normal Neck: Full Range of Motion, Normal Inspection Respiratory: No Accessory Muscle Use, No Respiratory Distress, Decreased Breath Sounds Cardiovascular: Regular Rate, Rhythm, Normal Peripheral Pulses Gastrointestinal: Normal Bowel Sounds, Non Tender, Soft Extremity: Normal Capillary Refill, Normal Inspection Neurologic/Psychiatric: Alert, Oriented x3 Skin: Normal Color, Warm/Dry Procedures/Interventions Suture Size: 5-0 Progress/Results/Core Measures Suspected Sepsis SIRS Temperature: Pulse: Respiratory Rate: Laboratory Tests 01/15/21 11:45: White Blood Count 12.5H Blood Pressure / Mean: Laboratory Tests 01/15/21 11:45: Creatinine 0.77, INR Comment 1.0, Platelet Count 413H, Total Bilirubin 0.3 Results/Orders Lab Results Laboratory Tests Test 01/15/21 11:45 01/15/21 11:47 Range/Units White Blood Count 12.5 H 4.3-11.0 10^3/uL Red Blood Count 4.39 3.80-5.11 10^6/uL Hemoglobin 11.6 11.5-16.0 g/dL Hematocrit 39 35-52 % Mean Corpuscular Volume 90 80-99 fL Mean Corpuscular Hemoglobin 26 25-34 pg Mean Corpuscular Hemoglobin Concent 29 L 32-36 g/dL Red Cell Distribution Width 16.3 H 10.0-14.5 % Platelet Count 413 H 130-400 10^3/uL Mean Platelet Volume 9.9 9.0-12.2 fL Immature Granulocyte % (Auto) 1 % Neutrophils (%) (Auto) 74 42-75 % Lymphocytes (%) (Auto) 17 12-44 % Monocytes (%) (Auto) 6 0-12 % Eosinophils (%) (Auto) 2 0-10 % Basophils (%) (Auto) 1 0-10 % Neutrophils # (Auto) 9.2 H 1.8-7.8 10^3/uL Lymphocytes # (Auto) 2.1 1.0-4.0 10^3/uL Monocytes # (Auto) 0.7 0.0-1.0 10^3/uL Eosinophils # (Auto) 0.3 0.0-0.3 10^3/uL Basophils # (Auto) 0.1 0.0-0.1 10^3/uL Immature Granulocyte # (Auto) 0.1 0.0-0.1 10^3/uL Prothrombin Time 14.0 12.2-14.7 SEC INR Comment 1.0 0.8-1.4 Activated Partial Thromboplast Time 32 24-35 SEC D-Dimer 0.52 H 0.00-0.49 UG/ML Sodium Level 139 135-145 MMOL/L Potassium Level 4.2 3.6-5.0 MMOL/L Chloride Level 101 98-107 MMOL/L Carbon Dioxide Level 29 21-32 MMOL/L Anion Gap 9 5-14 MMOL/L Blood Urea Nitrogen 7 7-18 MG/DL Creatinine 0.77 0.60-1.30 MG/DL Estimat Glomerular Filtration Rate > 60 BUN/Creatinine Ratio 9 Glucose Level 90 70-105 MG/DL Calcium Level 9.2 8.5-10.1 MG/DL Corrected Calcium 9.2 8.5-10.1 MG/DL Magnesium Level 1.9 1.6-2.4 MG/DL Total Bilirubin 0.3 0.1-1.0 MG/DL Aspartate Amino Transf (AST/SGOT) 13 5-34 U/L Alanine Aminotransferase (ALT/SGPT) 7 0-55 U/L Alkaline Phosphatase 147 H 40-136 U/L Myoglobin 33.3 10.0-92.0 NG/ML Troponin I < 0.028 <0.028 NG/ML B-Type Natriuretic Peptide 299.5 H <100.0 PG/ML Total Protein 7.6 6.4-8.2 GM/DL Albumin 4.0 3.2-4.5 GM/DL Blood Gas Puncture Site LEFT RADIAL Blood Gas Patient Temperature 36.5 Arterial Blood pH 7.34 *L 7.37-7.43 Arterial Blood Partial Pressure CO2 56 H 35-45 MMHG Arterial Blood Partial Pressure O2 45 L 79-93 MMHG Arterial Blood HCO3 29 H 23-27 MMOL/L Arterial Blood Total CO2 31.0 21.0-31.0 MMOL/L Arterial Blood Oxygen Saturation 66 L 94-100 % Arterial Blood Base Excess 3.8 H -2.5-2.5 MMOL/L [place] Test YES-POS Blood Gas Ventilator Setting NO Blood Gas Inspired Oxygen 3L My Orders Orders - ERICA MCPHERSON APRN Cbc With Automated Diff (01/15/21 11:39) Magnesium (01/15/21 11:39) Chest 1 View, Ap/Pa Only (01/15/21 11:39) Ekg Tracing (01/15/21 11:39) Comprehensive Metabolic Panel (01/15/21 11:39) Myoglobin Serum (01/15/21 11:39) Protime With Inr (01/15/21 11:39) Partial Thromboplastin Time (01/15/21 11:39) O2 (01/15/21 11:39) Monitor-Rhythm Ecg Trace Only (01/15/21 11:39) Lipid Panel (01/16/21 06:00) Ed Iv/Invasive Line Start (01/15/21 11:39) BNP (01/15/21 11:39) Fibrin Degradation Products (01/15/21 11:39) Nitroglycerin 0.4 Mg Btl 25's (Nitrostat (01/15/21 11:45) Aspirin Chewable Tablet (Baby Aspirin Ch (01/15/21 11:45) Arterial Blood Gas (01/15/21 11:48) Troponin I (01/15/21 11:45) Albuterol/Ipra Inhalation Soln (Duoneb I (01/15/21 12:45) Svn Small Volume Nebulizer (01/15/21 12:40) Ct Angio Chest W (01/15/21 12:45) Medications Given in ED Current Medications Medications Dose Ordered Sig/Simon Route Start Time Stop Time Status Last Admin Dose Admin Albuterol/ Ipratropium 3 ml ONCE ONCE INH 01/15/21 12:45 01/15/21 12:46 DC 01/15/21 12:57 3 ML Aspirin 81 mg ONCE ONCE PO 01/15/21 11:45 01/15/21 11:46 DC 01/15/21 11:47 81 MG Nitroglycerin 0.4 mg UD PRN SL 01/15/21 11:45 01/15/21 12:45 0.4 MG Vital Signs/I&O 01/15/21 01/15/21 11:34 11:36 Temp 36.5 Pulse 88 Resp 15 B/P (MAP) 166/105 (125) Pulse Ox 95 O2 Delivery Nasal Cannula Nasal Cannula O2 Flow Rate 3.00 3.00 Capillary Refill : Diagnostic Imaging Diagonstic Imaging: Xray Comments NAME: TUAN ORANTES [facility] REC#: [id number] PT STATUS: REG ER : 1975 PHYSICIAN: ERICA MCPHERSON MUSIC ADAPTER ADMIT DATE: 01/15/21/ER Draft Date of Exam:01/15/21 CHEST 1 VIEW, AP/PA ONLY EXAMINATION: Chest radiograph, portable AP view. DATE: 01/15/2021 12:12 PM. INDICATION: 46-year-old female, chest pain and shortness of breath. COMPARISON: September 22, 2019. FINDINGS: The heart is enlarged. There is no identified pneumothorax. There are technical limitations of the exam relating to patient body habitus and difficulties with exposure. There is no definite large pleural effusion. There are bilateral interstitial appearing opacities. IMPRESSION: 1. Technically limited exam relating to patient body habitus and difficulties with exposure. 2. Cardiomegaly with bilateral predominantly interstitial appearing opacities. Differential diagnostic considerations would include pulmonary edema, atypical infection, and pneumonitis. Dictated on workstation # [id number] Dict: 01/15/21 1223 Trans: 01/15/21 1226 [id number] Interpreted by: FERNANDO RODRIGUEZ MD Electronically signed by: Departure Communication (Admissions) We will get a repeat troponin this evening. Her oxygen remains 95% now on supplemental 3 L. She states that the 2 nitroglycerin that she received did help but the most helpful intervention was DuoNeb treatment in resolving her shortness of breath and chest pain. Suspect this is more of a COPD exacerbation than cardiac event. NAME: TUAN ORANTES [facility] REC#: [id number] PT STATUS: REG ER : 1975 PHYSICIAN: ERICA MCPHERSON MUSIC ADAPTER ADMIT DATE: 01/15/21/ER Draft Date of Exam:01/15/21 CT ANGIO CHEST W PROCEDURE: CT angiography of the chest with contrast. TECHNIQUE: Multiple contiguous axial images were obtained through the chest after uneventful bolus administration of intravenous contrast. 3D reconstructed CTA MIP acquisitions were also performed. Auto Exposure Controls were utilized during the CT exam to meet ALARA standards for radiation dose reduction. INDICATION: Chest tightness and dyspnea. COMPARISON: There is good opacification of the pulmonary arteries without intraluminal filling defect to indicate embolism. There is unchanged dilatation of the main pulmonary artery segment. There is mild cardiomegaly and a small amount of pericardial fluid. The thoracic aorta is of normal caliber. There has been a mild increase in size of the mediastinal lymph nodes with a lymph node at the aorticopulmonary window demonstrating a long axis measurement of 2.5 cm with a right paratracheal lymph node demonstrating a long axis measurement of 2.2 cm. The mosaic attenuation throughout the lungs is overall stable without evidence of focal mass or infiltrate. There are healed fractures laterally in multiple left ribs. IMPRESSION: No CTA evidence of pulmonary embolism. Background pulmonary opacities are similar and could be related to small airway disease or sarcoidosis. Mild overall increase in size of mediastinal lymphadenopathy. Dictated on workstation # [id number] Dict: 01/15/21 1331 Trans: 01/15/21 1338 [id number] Interpreted by: ELIA OCONNOR MD Electronically signed by: Impression Primary Impression: Chest pain Additional Impression: hypoxia Disposition: ADMITTED INPATIENT Condition: Stable Admissions Decision to Admit Reason: Admit from ER (General) Decision to Admit/Date: Jan 15, 2021 Time/Decision to Admit Time: 12:51 Departure-Patient Inst. Referrals: [facility] (PCP/Family) Primary Care Physician ERICA MCPHERSON MUSIC ADAPTER Jan 15, 2021 11:49
[2021-01-15 11:52] LABS: BASOPHILS # (AUTO) 0.1 10^3/uL (0.0-0.1); BASOPHILS % (AUTO) 1 % (0-10); EOSINOPHILS # (AUTO) 0.3 10^3/uL (0.0-0.3); EOSINOPHILS % (AUTO) 2 % (0-10); HEMATOCRIT 39 % (35-52); HEMOGLOBIN 11.6 g/dL (11.5-16.0); LYMPHOCYTES # (AUTO) 2.1 10^3/uL (1.0-4.0); LYMPHOCYTES % (AUTO) 17 % (12-44); MEAN CORPUSCULAR HEMOGLOBIN 26 pg (25-34); MEAN CORPUSCULAR HGB CONC 29 g/dL (32-36); MEAN CORPUSCULAR VOLUME 90 fL (80-99); MEAN PLATELET VOLUME 9.9 fL (9.0-12.2); MONOCYTES # (AUTO) 0.7 10^3/uL (0.0-1.0); MONOCYTES % (AUTO) 6 % (0-12); NEUTROPHILS # (AUTO) 9.2 10^3/uL (1.8-7.8); NEUTROPHILS % (AUTO) 74 % (42-75); PLATELET COUNT 413 10^3/uL (130-400); WHITE BLOOD COUNT 12.5 10^3/uL (4.3-11.0)
[2021-01-15 11:54] LABS: ABG BASE EXCESS 3.8 MMOL/L (-2.5-2.5); ABG OXYGEN SATURATION 66 % (94-100); ABG PCO2 56 MMHG (35-45); ABG PO2 45 MMHG (79-93)
[2021-01-15 11:58] LABS: ABG PH 7.34 (7.37-7.43); ALLENS TEST YES-POS; INSPIRED O2 3L; PATIENT TEMP 36.5; VENTILATOR NO
[2021-01-15 12:20] LABS: ALANINE AMINOTRANSFERASE 7 U/L (0-55); ALKALINE PHOSPHATASE 147 U/L (40-136); BILIRUBIN,TOTAL 0.3 MG/DL (0.1-1.0); BUN/CREATININE RATIO 9; CALCIUM 9.2 MG/DL (8.5-10.1); CARBON DIOXIDE 29 MMOL/L (21-32); CHLORIDE 101 MMOL/L (98-107); CREATININE SERUM 0.77 MG/DL (0.60-1.30); GFR ESTIMATED > 60; GLUCOSE 90 MG/DL (70-105); MAGNESIUM 1.9 MG/DL (1.6-2.4); POTASSIUM 4.2 MMOL/L (3.6-5.0); SODIUM 139 MMOL/L (135-145); TOTAL PROTEIN 7.6 GM/DL (6.4-8.2)
--- NOTE | 2021-01-15 12:27 | Diagnostic Imaging Report ---
EXAMINATION: Chest radiograph, portable AP view. DATE: 01/15/2021 12:12 PM. INDICATION: 46-year-old female, chest pain and shortness of breath. COMPARISON: September 22, 2019. FINDINGS: The heart is enlarged. There is no identified pneumothorax. There are technical limitations of the exam relating to patient body habitus and difficulties with exposure. There is no definite large pleural effusion. There are bilateral interstitial appearing opacities. IMPRESSION: 1. Technically limited exam relating to patient body habitus and difficulties with exposure. 2. Cardiomegaly with bilateral predominantly interstitial appearing opacities. Differential diagnostic considerations would include pulmonary edema, atypical infection, and pneumonitis. Dictated by: Dictated on workstation # [id number]
[2021-01-15] MEDS ORDERED: RT-ALBUTEROL/IPRATROPIUM 3 ML (DUONEB) VIAL INH ONE (12:45)
[2021-01-15] MEDS ORDERED: HOLD METFORMIN - RECEIVED CONTRAST 20 ML VIAL IV SCH (13:15)
[2021-01-15] MEDS ORDERED: NS 100 ML (IVPB) BAG IV ONE (13:15)
[2021-01-15] MEDS ORDERED: IOHEXOL 350 MG/ML 100 ML (OMNIPAQUE 350) VIAL IV ONE (13:15)
--- NOTE | 2021-01-15 13:38 | Diagnostic Imaging Report ---
PROCEDURE: CT angiography of the chest with contrast. TECHNIQUE: Multiple contiguous axial images were obtained through the chest after uneventful bolus administration of intravenous contrast. 3D reconstructed CTA MIP acquisitions were also performed. Auto Exposure Controls were utilized during the CT exam to meet ALARA standards for radiation dose reduction. INDICATION: Chest tightness and dyspnea. COMPARISON: There is good opacification of the pulmonary arteries without intraluminal filling defect to indicate embolism. There is unchanged dilatation of the main pulmonary artery segment. There is mild cardiomegaly and a small amount of pericardial fluid. The thoracic aorta is of normal caliber. There has been a mild increase in size of the mediastinal lymph nodes with a lymph node at the aorticopulmonary window demonstrating a long axis measurement of 2.5 cm with a right paratracheal lymph node demonstrating a long axis measurement of 2.2 cm. The mosaic attenuation throughout the lungs is overall stable without evidence of focal mass or infiltrate. There are healed fractures laterally in multiple left ribs. IMPRESSION: No CTA evidence of pulmonary embolism. Background pulmonary opacities are similar and could be related to small airway disease or sarcoidosis. Mild overall increase in size of mediastinal lymphadenopathy. Dictated by: Dictated on workstation # [id number]
[2021-01-15] MEDS ORDERED: TIZA4TAB4 PO (13:59)
[2021-01-15] MEDS ORDERED: GBPN600T PO (13:59)
[2021-01-15] MEDS ORDERED: ROPI1TAB PO (13:59)
--- NOTE | 2021-01-15 13:59 | History & Physical ---
HPI History of Present Illness: 46 yo female presented to ER with central chest pressure for a couple of days with some radiation to right arm. She states this is "normal" for her when she has heart failure exacerbations. Yesterday was very fatigued, slept most of the day and didn't eat or drink much. Last night chest heaviness increased and she started having right sided frontal headache which is similar to her typical migraines. Currently still has headache, chest pain has decreased to 1/10 after nitro and breathing treatment in ER. Admits shortness of breath and cough that is occasionally productive which is her baseline. Does not use supplemental oxygen at home currently although she has in the past. SOA worse with exertion but not with laying down. Source: patient Date seen by provider: Jan 15, 2021 Time Seen by Provider: 13:40 Attending Physician Angie Haque MD [place] [place] Consult Date of Admission Jan 15, 2021 at 12:52 Home Medications Home Medications Reviewed patient Home Medication Reconciliation performed by pharmacy medication reconciliations electronic bench technician and/or nursing. Patients Allergies have been reviewed. Allergies Coded Allergies: acetaminophen (Verified Allergy, Unknown, 06/09/14) erythromycin base (Verified Allergy, Unknown, PT CAN TAKE AZITHROMYCIN, 06/09/14) minocycline (Verified Adverse Reaction, Mild, N/V, 06/09/14) YBT-Dreogq-Gmitrq Hx Patient Social History Drug of Choice: NARCOTIC OVERDOSE IN PAST Smoking Status: Current Everyday Smoker Former smoker/When Quit: Nov 21, 2013 2nd Hand Smoke Exposure: Yes Recent Hopitalizations: No Immunizations Up To Date Tetanus Booster (TDap): Less than 5yrs Date of Pneumonia Vaccine: Jun 22, 2016 Date of Influenza Vaccine: Jun 22, 2016 Past Medical History PMHx: Sarcoidosis COPD Hypoventilation with chronic CO2 retention DMII Chronic edema Chronic pain s/p back surgery Hyperlipidemia Hypothyroidism Vocal cord paralysis CHF Neuropathy Migraines GERD Restless leg syndrome Surgeries: Back surgery, right knee arthroscopy, cholecystectomy, appendectomy, right ovarian cyst, vocal cord surgery for paralyzed vocal cords Family Medical History Significant Family History: Heart Disease, Hypertension Family History: Family history: Hypertension 09 SISTER (43 ) Family history: Thyroid disorder 03 MOTHER (41 ) Stroke 03 FATHER (47 ) Review of Systems (CHC) Constitutional: No chills, No fever EENTM: No vision loss Respiratory: see HPI Cardiovascular: see HPI Gastrointestinal: No constipation, No diarrhea; loss of appetite, nausea Genitourinary: No dysuria, No frequency Musculoskeletal: No joint pain Skin: No rash Reviewed Test Results Reviewed Test Results Lab Laboratory Tests Test 01/15/21 11:45 01/15/21 11:47 Range/Units White Blood Count 12.5 H 4.3-11.0 10^3/uL Red Blood Count 4.39 3.80-5.11 10^6/uL Hemoglobin 11.6 11.5-16.0 g/dL Hematocrit 39 35-52 % Mean Corpuscular Volume 90 80-99 fL Mean Corpuscular Hemoglobin 26 25-34 pg Mean Corpuscular Hemoglobin Concent 29 L 32-36 g/dL Red Cell Distribution Width 16.3 H 10.0-14.5 % Platelet Count 413 H 130-400 10^3/uL Mean Platelet Volume 9.9 9.0-12.2 fL Immature Granulocyte % (Auto) 1 % Neutrophils (%) (Auto) 74 42-75 % Lymphocytes (%) (Auto) 17 12-44 % Monocytes (%) (Auto) 6 0-12 % Eosinophils (%) (Auto) 2 0-10 % Basophils (%) (Auto) 1 0-10 % Neutrophils # (Auto) 9.2 H 1.8-7.8 10^3/uL Lymphocytes # (Auto) 2.1 1.0-4.0 10^3/uL Monocytes # (Auto) 0.7 0.0-1.0 10^3/uL Eosinophils # (Auto) 0.3 0.0-0.3 10^3/uL Basophils # (Auto) 0.1 0.0-0.1 10^3/uL Immature Granulocyte # (Auto) 0.1 0.0-0.1 10^3/uL Prothrombin Time 14.0 12.2-14.7 SEC INR Comment 1.0 0.8-1.4 Activated Partial Thromboplast Time 32 24-35 SEC D-Dimer 0.52 H 0.00-0.49 UG/ML Sodium Level 139 135-145 MMOL/L Potassium Level 4.2 3.6-5.0 MMOL/L Chloride Level 101 98-107 MMOL/L Carbon Dioxide Level 29 21-32 MMOL/L Anion Gap 9 5-14 MMOL/L Blood Urea Nitrogen 7 7-18 MG/DL Creatinine 0.77 0.60-1.30 MG/DL Estimat Glomerular Filtration Rate > 60 BUN/Creatinine Ratio 9 Glucose Level 90 70-105 MG/DL Calcium Level 9.2 8.5-10.1 MG/DL Corrected Calcium 9.2 8.5-10.1 MG/DL Magnesium Level 1.9 1.6-2.4 MG/DL Total Bilirubin 0.3 0.1-1.0 MG/DL Aspartate Amino Transf (AST/SGOT) 13 5-34 U/L Alanine Aminotransferase (ALT/SGPT) 7 0-55 U/L Alkaline Phosphatase 147 H 40-136 U/L Myoglobin 33.3 10.0-92.0 NG/ML Troponin I < 0.028 <0.028 NG/ML B-Type Natriuretic Peptide 299.5 H <100.0 PG/ML Total Protein 7.6 6.4-8.2 GM/DL Albumin 4.0 3.2-4.5 GM/DL Blood Gas Puncture Site LEFT RADIAL Blood Gas Patient Temperature 36.5 Arterial Blood pH 7.34 *L 7.37-7.43 Arterial Blood Partial Pressure CO2 56 H 35-45 MMHG Arterial Blood Partial Pressure O2 45 L 79-93 MMHG Arterial Blood HCO3 29 H 23-27 MMOL/L Arterial Blood Total CO2 31.0 21.0-31.0 MMOL/L Arterial Blood Oxygen Saturation 66 L 94-100 % Arterial Blood Base Excess 3.8 H -2.5-2.5 MMOL/L [place] Test YES-POS Blood Gas Ventilator Setting NO Blood Gas Inspired Oxygen 3L Radiology CXR: IMPRESSION: 1. Technically limited exam relating to patient body habitus and difficulties with exposure. 2. Cardiomegaly with bilateral predominantly interstitial appearing opacities. Differential diagnostic considerations would include pulmonary edema, atypical infection, and pneumonitis. CTA chest DRAFT: IMPRESSION: No CTA evidence of pulmonary embolism. Background pulmonary opacities are similar and could be related to small airway disease or sarcoidosis. Mild overall increase in size of mediastinal lymphadenopathy. Physical Exam-(CHC) Physical Exam Vital Signs VS - Last 72 Hours, by Label 01/15/21 01/15/21 01/15/21 01/15/21 11:34 11:36 12:57 13:46 Temp 36.5 Pulse 88 74 Resp 15 16 B/P (MAP) 166/105 (125) 151/94 Pulse Ox 95 92 94 O2 Delivery Nasal Cannula Nasal Cannula Nasal Cannula Nasal Cannula O2 Flow Rate 3.00 3.00 3.00 3.00 Capillary Refill : Less Than 3 Seconds General Appearance: obese Respiratory: lungs clear, normal breath sounds Cardiovascular: regular rate, rhythm, no murmur Gastrointestinal: normal bowel sounds, non tender, soft Extremities: no pedal edema Neurologic/Psychiatric: alert, normal mood/affect Assessment/Plan Assessment/Plan Admission Status: Inpatient Order (span 2 midnights) Reason for Inpatient Admission: COPD and CHF exacerbation (1) COPD EXACERBATION Status: Acute Assessment & Plan: Solumedrol, RT protocol. (2) Chest pain Status: Acute Assessment & Plan: Cardiology consulted, appreciate recommendations. Troponin negative. (3) Respiratory failure with hypoxia and hypercapnia Status: Acute Assessment & Plan: Requiring 3 lpm supplemental oxygen, mildly acidotic. Suspect due to combination of COPD and CHF exacerbation. Qualifiers: Qualified Codes: J96.21 - Acute and chronic respiratory failure with hypoxia; J96.22 - Acute and chronic respiratory failure with hypercapnia (4) CHF (congestive heart failure) Status: Acute Assessment & Plan: Cardiology consulted, appreciate recommendations. Repeat echocardiogram, diurese as needed. Qualifiers: Qualified Codes: I50.33 - Acute on chronic diastolic (congestive) heart failure (5) Migraine Status: Chronic (6) Morbid obesity Status: Chronic (7) Leukocytosis Status: Acute Assessment & Plan: Suspect reactive, monitor. (8) Alkaline phosphatase elevation Status: Chronic Assessment & Plan: Intermittently elevated since at least 2012, known hepatic steatosis, monitor. (9) Hepatic steatosis Status: Chronic (10) Thrombocytosis Status: Acute Assessment & Plan: Suspect reactive, monitor. (11) DVT prophylaxis Status: Acute Assessment & Plan: Enoxaparin Clinical Quality Measures AMI/AHF: ASA po Prior to arrival: Yes ANGIE HAQUE MD Jan 15, 2021 13:59
[2021-01-15 14:05] VITALS: BP 132/59
[2021-01-15] MEDS ORDERED: OMEP20CA18 PO (14:22)
[2021-01-15] MEDS ORDERED: CARV3.122 PO (14:22)
[2021-01-15] MEDS ORDERED: POTA99TA17 PO (14:22)
[2021-01-15] MEDS ORDERED: MONT10TA32 PO (14:22)
[2021-01-15] MEDS ORDERED: DULO60CA59 PO (14:22)
[2021-01-15] MEDS ORDERED: CLN.1T PO (14:22)
[2021-01-15] MEDS ORDERED: FUROSEMIDE 40 MG/4 ML INJ (LASIX) IVP NR (14:30)
[2021-01-15] MEDS: ENOXAPARIN 60 MG/0.6 ML (LOVENOX) SYR SC SCH (14:57)
[2021-01-15] MEDS: methylPREDNISolone 40 MG/ML (Solu-MEDROL) VIAL IV SCH ×2 (14:57→22:56)
[2021-01-15] MEDS ORDERED: cloNIDine 0.1 MG (CATAPRES) TAB PO PRN (15:45)
[2021-01-15 15:49] VITALS: BP_SYST 123; BP_SYST 132; BP_DIAS 59; BP_DIAS 60
--- NOTE | 2021-01-15 15:49 | Consultation-Cardiology ---
HPI-Cardiology Cardiology Consultation: Date of Consultation 01/15/21 Time Seen by a Provider: 15:45 Date of Admission 01-15-21 Attending Physician Liya Haque MD Admitting Physician [place] Consulting Physician Jarret Burgess MD HPI: Chief Complaint: Chest pain Ms. Romo is a 46 yr old female admitted to [facility] from the ED with c/o chest pressure which started on Friday. She report it was constant pressure for more than 12 hours. She reports increasing SOB for the last few days. She c/o intermittent nausea and diaphoresis. She reports the chest pressure would improve with lying down and increase in intensity with activity. No c/o palpitations. No c/o syncope or near syncope. She denies any radiation. She denies any LE swelling. She reports her pain has resolved. She states it improved with nitro x2 in the ED. She denies any fever or chills. She continues to smoke cigs, 1/2 PPD. Review of Systems-Cardiology Review of Systems Constitutional: No chills, No fever; malaise Eyes: No vision change Ears/Nose/Throat: No epistaxis, No recent hearing loss Respiratory: As described under HPI Cardiovascular: As described under HPI Gastrointestinal: As described under HPI Genitourinary: No dysuria, No hematuria Musculoskeletal: no symptoms reported Skin: No rash on exposed areas, No ulcerations on exposed areas Psychiatric/Neurological: No anxiety, No depression, No seizure, No focal weakness, No syncope Hematologic: No bleeding abnormalities KLH-[id number]-[id number] Hx Patient Social History Smoking Status: Current Everyday Smoker Former smoker/When Quit: Nov 21, 2013 2nd Hand Smoke Exposure: Yes Immunizations Up To Date Tetanus Booster (TDap): Less than 5yrs Date of Pneumonia Vaccine: Jun 22, 2016 Date of Influenza Vaccine: Jun 22, 2016 Past Medical History PMH As described under Assessment. Family Medical History Family Medical History: She reports her father had a CVA. She reports a sister with HTN. Family History: Family history: Hypertension 09 SISTER (43 ) Family history: Thyroid disorder 03 MOTHER (41 ) Stroke 03 FATHER (47 ) Allergies and Home Medications Allergies Coded Allergies: acetaminophen (Verified Allergy, Unknown, 06/09/14) erythromycin base (Verified Allergy, Unknown, PT CAN TAKE AZITHROMYCIN, 06/09/14) minocycline (Verified Adverse Reaction, Mild, N/V, 06/09/14) Home Medications Carvedilol 3.125 Mg Tablet, 3.125 MG PO BID, (Reported) Last Action: Continued Clonidine HCl 0.1 Mg Tablet, 0.1 MG PO BID PRN for ANXIETY, (Reported) Last Action: Continued Duloxetine HCl 60 Mg Capsule.dr, 60 MG PO BID, (Reported) Last Action: Converted Gabapentin 600 Mg Tablet, 600 MG PO TID, (Reported) Last Action: Continued Montelukast Sodium 10 Mg Tablet, 10 MG PO HS, (Reported) Last Action: Continued Omeprazole 20 Mg Capsule.dr, 20 MG PO HS, (Reported) Last Action: Continued Potassium Gluconate 99 Mg Tablet, 99 MG PO DAILY, (Reported) Last Action: Held Ropinirole HCl 1 Mg Tablet, 1 MG PO TID, (Reported) LAST FILLED 07-16-2020 #270/90 DAY SUPPLY Last Action: Continued Tizanidine HCl 4 Mg Tablet, 4 MG PO TID, (Reported) Last Action: Continued Physical Exam-Cardiology Physical Exam Vital Signs/I&O 01/15/21 01/15/21 01/15/21 01/15/21 20:00 20:00 20:25 21:54 Temp 36.3 Pulse 87 Resp 20 B/P (MAP) 132/58 (82) Pulse Ox 93 90 93 O2 Delivery Nasal Cannula Nasal Cannula Nasal Cannula O2 Flow Rate 3.00 3.00 3.00 01/16/21 01/16/21 01/16/21 01/16/21 00:21 04:21 06:34 07:34 Temp 37.0 36.6 35.8 Pulse 82 82 76 Resp 18 20 18 B/P (MAP) 97/60 (72) 128/76 (93) 106/70 (82) Pulse Ox 94 96 95 95 O2 Delivery Nasal Cannula Nasal Cannula Room Air Nasal Cannula O2 Flow Rate 3.00 3.00 3.00 01/16/21 00:00 Intake Total 540 ml Balance 540 ml Capillary Refill : Less Than 3 Seconds Constitutional: AAO x 3, well-developed, well-nourished HEENT: PERRL, oral hygience is good Neck: No carotid bruit; carotid pulses are 2 + bilaterally Respiratory: No accessory muscle use, No respiratory distress; chest expansion is symmetric, chest is bilaterally symmetric, rhonchi (scattered), other (prolonged exp phase) Cardiovascular: regular rate-rhythm; No JVD; S1 and S2 Gastrointestinal: No tender; soft, round, audible bowel sounds Extremities: no lower extremity edema bilateral Neurologic/Psychiatric: grossly intact (moves all extremities) Skin: No rash on exposed areas, No ulcerations on exposed areas Data Review Labs Laboratory Tests 01/15/21 11:45: White Blood Count 12.5H, Red Blood Count 4.39, Hemoglobin 11.6, Hematocrit 39, Mean Corpuscular Volume 90, Mean Corpuscular Hemoglobin 26, Mean Corpuscular Hemoglobin Concent 29L, Red Cell Distribution Width 16.3H, Platelet Count 413H, Mean Platelet Volume 9.9, Immature Granulocyte % (Auto) 1, Neutrophils (%) (Auto) 74, Lymphocytes (%) (Auto) 17, Monocytes (%) (Auto) 6, Eosinophils (%) (Auto) 2, Basophils (%) (Auto) 1, Neutrophils # (Auto) 9.2H, Lymphocytes # (Auto) 2.1, Monocytes # (Auto) 0.7, Eosinophils # (Auto) 0.3, Basophils # (Auto) 0.1, Immature Granulocyte # (Auto) 0.1, Prothrombin Time 14.0, INR Comment 1.0, Activated Partial Thromboplast Time 32, D-Dimer 0.52H, Sodium Level 139, Potassium Level 4.2, Chloride Level 101, Carbon Dioxide Level 29, Anion Gap 9, Blood Urea Nitrogen 7, Creatinine 0.77, Estimat Glomerular Filtration Rate > 60, BUN/Creatinine Ratio 9, Glucose Level 90, Calcium Level 9.2, Corrected Calcium 9.2, Magnesium Level 1.9, Total Bilirubin 0.3, Aspartate Amino Transf (AST/SGOT) 13, Alanine Aminotransferase (ALT/SGPT) 7, Alkaline Phosphatase 147H, Myoglobin 33.3, Troponin I < 0.028, B-Type Natriuretic Peptide 299.5H, Total Protein 7.6, Albumin 4.0 01/15/21 11:47: Blood Gas Puncture Site LEFT RADIAL, Blood Gas Patient Temperature 36.5, Arterial Blood pH 7.34*L, Arterial Blood Partial Pressure CO2 56H, Arterial Blood Partial Pressure O2 45L, Arterial Blood HCO3 29H, Arterial Blood Total CO2 31.0, Arterial Blood Oxygen Saturation 66L, Arterial Blood Base Excess 3.8H, [place] Test YES-POS, Blood Gas Ventilator Setting NO, Blood Gas Inspired Oxygen 3L 01/15/21 18:15: Troponin I < 0.028 01/16/21 05:13: White Blood Count 13.4H, Red Blood Count 4.42, Hemoglobin 11.5, Hematocrit 40, Mean Corpuscular Volume 91, Mean Corpuscular Hemoglobin 26, Mean Corpuscular Hem oglobin Concent 29L, Red Cell Distribution Width 16.1H, Platelet Count 414H, Mean Platelet Volume 10.5, Sodium Level 137, Potassium Level 4.0, Chloride Level 98, Carbon Dioxide Level 27, Anion Gap 12, Blood Urea Nitrogen 8, Creatinine 0.83, Estimat Glomerular Filtration Rate > 60, BUN/Creatinine Ratio 10, Glucose Level 187H, Calcium Level 9.5, Corrected Calcium 9.6, Total Bilirubin 0.2, Aspartate Amino Transf (AST/SGOT) 8, Alanine Aminotransferase (ALT/SGPT) 7, Alkaline Phosphatase 150H, Total Protein 7.5, Albumin 3.9, Triglycerides Level 1 05, Cholesterol Level 160, LDL Cholesterol Direct 118, VLDL Cholesterol 21, HDL Cholesterol 38L Radiology NAME: [facility]O [facility] REC#: [id number] PT STATUS: REG ER : 1975 PHYSICIAN: ERICA MCPHERSON APRN ADMIT DATE: 01/15/21/ER Signed Date of Exam:01/15/21 CHEST 1 VIEW, AP/PA ONLY EXAMINATION: Chest radiograph, portable AP view. DATE: 01/15/2021 12:12 PM. INDICATION: 46-year-old female, chest pain and shortness of breath. COMPARISON: September 22, 2019. FINDINGS: The heart is enlarged. There is no identified pneumothorax. There are technical limitations of the exam relating to patient body habitus and difficulties with exposure. There is no definite large pleural effusion. There are bilateral interstitial appearing opacities. IMPRESSION: 1. Technically limited exam relating to patient body habitus and difficulties with exposure. 2. Cardiomegaly with bilateral predominantly interstitial appearing opacities. Differential diagnostic considerations would include pulmonary edema, atypical infection, and pneumonitis. Dictated by: Dictated on workstation # [id number] Dict: 01/15/21 1223 Trans: 01/15/21 1337 [id number] Interpreted by: FERNANDO RODRIGUEZ MD Electronically signed by: FERNANDO RODRIGUEZ MD 01/15/21 1337 NAME: TUAN ROMO [facility] REC#: [id number] PT STATUS: ADM IN : 1975 PHYSICIAN: ERICA MCPHERSON APRN ADMIT DATE: 01/15/21 Signed Date of Exam:01/15/21 CT ANGIO CHEST W PROCEDURE: CT angiography of the chest with contrast. TECHNIQUE: Multiple contiguous axial images were obtained through the chest after uneventful bolus administration of intravenous contrast. 3D reconstructed CTA MIP acquisitions were also performed. Auto Exposure Controls were utilized during the CT exam to meet ALARA standards for radiation dose reduction. INDICATION: Chest tightness and dyspnea. COMPARISON: There is good opacification of the pulmonary arteries without intraluminal filling defect to indicate embolism. There is unchanged dilatation of the main pulmonary artery segment. There is mild cardiomegaly and a small amount of pericardial fluid. The thoracic aorta is of normal caliber. There has been a mild increase in size of the mediastinal lymph nodes with a lymph node at the aorticopulmonary window demonstrating a long axis measurement of 2.5 cm with a right paratracheal lymph node demonstrating a long axis measurement of 2.2 cm. The mosaic attenuation throughout the lungs is overall stable without evidence of focal mass or infiltrate. There are healed fractures laterally in multiple left ribs. IMPRESSION: No CTA evidence of pulmonary embolism. Background pulmonary opacities are similar and could be related to small airway disease or sarcoidosis. Mild overall increase in size of mediastinal lymphadenopathy. Dictated by: Dictated on workstation # [id number] Dict: 01/15/21 1331 Trans: 01/15/21 1517 [id number] Interpreted by: ELIA OCONNOR MD Electronically signed by: ELIA OCONNOR MD 01/15/21 1517 A/P-Cardiology Assessment/Admission Diagnosis Chest pain of undetermined etiology Shortness of breath, multifactorial (see below) Obesity-hypoventilation and LOLI syndrome Acute on chronic obstructive pulmonary disease Partial vocal cord paralysis following mediastinal surgery for mediastinal lymphadenopathy; this has been followed by vocal cord surgery at [facility] Acute on chronic diastolic CHF. Echo of 06/02/17: LVEF 60-65% Holter study of 12-21-15 showed NSR with average HR o 89 bpm. Infrequent PVC, isolated and coupled. No VT or SVT or significant bradycardia Cardiac catheterization of 11-16-2013 showed angiographically normal coronary arteries. LVEF 60%. LVEDP, no significant mitral regurg. MPI of 01-02-16 showed no evidence of any significant myocardial ischemia or infarction. LVEF 80%. Normal regional wall motion. Echocardiogram of January 20, 2018 showed LVEF 65-70%. PASP 40 mmHg Chronic back and joint pain. History of anxiety and depression, currently controlled. History of fatty liver. Chronic tobaccoism which cessation has been advised. Previous hospitalization with narcotic overdose. At that time, she also had liver enzyme elevation which was improving at the time of discharge and is being followed by Dr. Saldaña. Gastroesophageal reflux disease with recent GI bleed during hospitalization 02/02/2013 Hypokalemia due to diuretic use Myofascial pain syndrome and lumbar spondylosis, managed by Dr Cr Chronic chest pain syndrome, chronic Chronic anemia, managed by her [facility] physician. Discussion and Recomendations Chest pain of undetermined etiology - normal troponin thus far EKG Echocardiogram to eval structure and function Continue home medications Monitor lab closely Replace electrolytes as indicated Further recs will be based on her hospital course We would like to thank medical services for this consult Clinical Quality Measures AMI/AHF: ASA po Prior to arrival: Yes BEV BAIN Jan 15, 2021 15:49
[2021-01-15] MEDS ORDERED: RT-ALBUTEROL SULF 2.5 MG/3 ML PRE-MIX VIAL INH PRN (16:15)
--- NOTE | 2021-01-15 16:38 | Consultation-Cardiology ---
HPI-Cardiology Cardiology Consultation: Date of Consultation 01/15/21 Time Seen by a Provider: 16:30 Date of Admission Attending Physician Liya Haque MD Admitting Physician [place] Consulting Physician SOPHIE ERIC MD, MA, FACP, FACC, FSCAI, CCDS HPI: Chief Complaint: CC: Shortness of breath, chest pain HPI Ms. Romo is a 46 yr old female admitted to [facility] from the ED with c/o chest pressure which started on Friday. She report it was constant pressure for more than 12 hours. She reports increasing SOB for the last few days. She c/o intermittent nausea and diaphoresis. She reports the chest pressure would improve with lying down and increase in intensity with activity. No c/o palpitations. No c/o syncope or near syncope. She denies any radiation. She denies any LE swelling. She reports her pain has resolved. She states it improved with nitro x2 in the ED. She denies any fever or chills. She continues to smoke cigs, 1/2 PPD. Review of Systems-Cardiology Review of Systems Constitutional: No chills, No fever; malaise Eyes: No vision change Ears/Nose/Throat: No epistaxis, No recent hearing loss Respiratory: As described under HPI Cardiovascular: As described under HPI Gastrointestinal: As described under HPI Genitourinary: No dysuria, No hematuria Musculoskeletal: no symptoms reported Skin: No rash on exposed areas, No ulcerations on exposed areas Psychiatric/Neurological: No anxiety, No depression, No seizure, No focal weakness, No syncope Hematologic: No bleeding abnormalities [id number] Hx Patient Social History Smoking Status: Current Everyday Smoker Former smoker/When Quit: Nov 21, 2013 2nd Hand Smoke Exposure: Yes Immunizations Up To Date Tetanus Booster (TDap): Less than 5yrs Date of Pneumonia Vaccine: Jun 22, 2016 Date of Influenza Vaccine: Jun 22, 2016 Past Medical History PMH As described under Assessment. Family Medical History Family Medical History: She reports her father had a CVA. She reports a sister with HTN. Family History: Family history: Hypertension 09 SISTER (43 ) Family history: Thyroid disorder 03 MOTHER (41 ) Stroke 03 FATHER (47 ) Allergies and Home Medications Allergies Coded Allergies: acetaminophen (Verified Allergy, Unknown, 06/09/14) erythromycin base (Verified Allergy, Unknown, PT CAN TAKE AZITHROMYCIN, 06/09/14) minocycline (Verified Adverse Reaction, Mild, N/V, 06/09/14) Home Medications Carvedilol 3.125 Mg Tablet, 3.125 MG PO BID, (Reported) Last Action: Continued Clonidine HCl 0.1 Mg Tablet, 0.1 MG PO BID PRN for ANXIETY, (Reported) Last Action: Continued Duloxetine HCl 60 Mg Capsule.dr, 60 MG PO BID, (Reported) Last Action: Converted Gabapentin 600 Mg Tablet, 600 MG PO TID, (Reported) Last Action: Continued Montelukast Sodium 10 Mg Tablet, 10 MG PO HS, (Reported) Last Action: Continued Omeprazole 20 Mg Capsule.dr, 20 MG PO HS, (Reported) Last Action: Continued Potassium Gluconate 99 Mg Tablet, 99 MG PO DAILY, (Reported) Last Action: Held Ropinirole HCl 1 Mg Tablet, 1 MG PO TID, (Reported) LAST FILLED 07-16-2020 #270/90 DAY SUPPLY Last Action: Continued Tizanidine HCl 4 Mg Tablet, 4 MG PO TID, (Reported) Last Action: Continued Patient Home Medication List Home Medication List Reviewed: Yes Physical Exam-Cardiology Physical Exam Vital Signs/I&O 01/15/21 01/15/21 01/15/21 01/15/21 11:34 11:36 12:57 13:46 Temp 36.5 Pulse 88 74 Resp 15 16 B/P (MAP) 166/105 (125) 151/94 Pulse Ox 95 92 94 O2 Delivery Nasal Cannula Nasal Cannula Nasal Cannula Nasal Cannula O2 Flow Rate 3.00 3.00 3.00 3.00 01/15/21 01/15/21 01/15/21 14:05 15:49 15:49 Temp 36.7 36.8 36.7 Pulse 70 81 70 Resp 20 24 B/P (MAP) 132/59 (83) 123/60 (81) Pulse Ox 94 93 94 O2 Delivery Nasal Cannula Nasal Cannula O2 Flow Rate 3.00 3.00 FiO2 32 Capillary Refill : Less Than 3 Seconds Constitutional: AAO x 3, well-developed, well-nourished HEENT: PERRL, oral hygience is good Neck: No carotid bruit; carotid pulses are 2 + bilaterally Respiratory: No accessory muscle use, No respiratory distress; chest expansion is symmetric, chest is bilaterally symmetric, rhonchi (scattered), other (prolonged exp phase) Cardiovascular: regular rate-rhythm; No JVD; S1 and S2 Gastrointestinal: No tender; soft, round, audible bowel sounds Extremities: no lower extremity edema bilateral Neurologic/Psychiatric: grossly intact (moves all extremities) Skin: No rash on exposed areas, No ulcerations on exposed areas Data Review Labs Laboratory Tests 01/15/21 11:45: White Blood Count 12.5H, Red Blood Count 4.39, Hemoglobin 11.6, Hematocrit 39, Mean Corpuscular Volume 90, Mean Corpuscular Hemoglobin 26, Mean Corpuscular Hemoglobin Concent 29L, Red Cell Distribution Width 16.3H, Platelet Count 413H, Mean Platelet Volume 9.9, Immature Granulocyte % (Auto) 1, Neutrophils (%) (Auto) 74, Lymphocytes (%) (Auto) 17, Monocytes (%) (Auto) 6, Eosinophils (%) (Auto) 2, Basophils (%) (Auto) 1, Neutrophils # (Auto) 9.2H, Lymphocytes # (Auto) 2.1, Monocytes # (Auto) 0.7, Eosinophils # (Auto) 0.3, Basophils # (Auto) 0.1, Immature Granulocyte # (Auto) 0.1, Prothrombin Time 14.0, INR Comment 1.0, Activated Partial Thromboplast Time 32, D-Dimer 0.52H, Sodium Level 139, Pota ssium Level 4.2, Chloride Level 101, Carbon Dioxide Level 29, Anion Gap 9, Blood Urea Nitrogen 7, Creatinine 0.77, Estimat Glomerular Filtration Rate > 60, BUN/Creatinine Ratio 9, Glucose Level 90, Calcium Level 9.2, Corrected Calcium 9.2, Magnesium Level 1.9, Total Bilirubin 0.3, Aspartate Amino Transf (AST/SGOT) 13, Alanine Aminotransferase (ALT/SGPT) 7, Alkaline Phosphatase 147H, Myoglobin 33.3, Troponin I < 0.028, B-Type Natriuretic Peptide 299.5H, Total Protein 7.6, Albumin 4.0 01/15/21 11:47: Blood Gas Puncture Site LEFT RADIAL, Blood Gas Patient Temperature 36.5, Arterial Blood pH 7.34*L, Arterial Blood Partial Pressure CO2 56H, Arterial Blood Partial Pressure O2 45L, Arterial Blood HCO3 29H, Arterial Blood Total CO2 31.0, Arterial Blood Oxygen Saturation 66L, Arterial Blood Base Excess 3.8H, [place] Test YES-POS, Blood Gas Ventilator Setting NO, Blood Gas Inspired Oxygen 3L Laboratory Tests 01/15/21 11:45 A/P-Cardiology Assessment/Admission Diagnosis Chest discomfort of undetermined etiology, no evidence of ACS so far Chronic shortness of breath, multifactorial (see below) Obesity-hypoventilation and LOLI syndrome Acute on chronic obstructive pulmonary disease Partial vocal cord paralysis following mediastinal surgery for mediastinal lymphadenopathy; this has been followed by vocal cord surgery at [facility] Acute on chronic diastolic CHF. Echo of 06/02/17: LVEF 60-65% Holter study of 12-21-15 showed NSR with average HR o 89 bpm. Infrequent PVC, isolated and coupled. No VT or SVT or significant bradycardia Cardiac catheterization of 11-16-2013 showed angiographically normal coronary arteries. LVEF 60%. LVEDP, no significant mitral regurg. MPI of 01-02-16 showed no evidence of any significant myocardial ischemia or infarction. LVEF 80%. Normal regional wall motion. Echocardiogram of January 20, 2018 showed LVEF 65-70%. PASP 40 mmHg Chronic back and joint pain. History of anxiety and depression, currently controlled. History of fatty liver. Chronic tobaccoism which cessation has been advised. Previous hospitalization with narcotic overdose. At that time, she also had liver enzyme elevation which was improving at the time of discharge and is being followed by Dr. Saldaña. Gastroesophageal reflux disease with recent GI bleed during hospitalization 02/02/2013 Hypokalemia due to diuretic use Myofascial pain syndrome and lumbar spondylosis, managed by Dr Cr Chronic chest pain syndrome, chronic Chronic anemia, managed by her [facility] physician. Discussion and Recomendations EKG Echocardiogram to eval structure and function Continue home medications Monitor lab closely Replace electrolytes as indicated Further recs will be based on her hospital course We would like to thank Medical services for this consult Clinical Quality Measures AMI/AHF: ASA po Prior to arrival: Yes SOPHIE ERIC MD [facility] CCDS Jan 15, 2021 16:37
[2021-01-15] MEDS: RT-ALBUTEROL/IPRATROPIUM 3 ML (DUONEB) VIAL INH SCH ×2 (17:59→21:53)
[2021-01-15 20:25] VITALS: BP 132/58
[2021-01-15] MEDS: GABAPENTIN 600 MG (NEURONTIN) TAB PO SCH (20:28)
[2021-01-15] MEDS: DULoxetine 30 MG (CYMBALTA) CAP PO SCH (20:28)
[2021-01-15] MEDS: rOPINIRole 1 MG (REQUIP) TABLET PO SCH (20:28)
[2021-01-15] MEDS ORDERED: PANTOPRAZOLE 20 MG TABLET (PROTONIX) PO SCH (21:00)
[2021-01-15] MEDS ORDERED: NON-FORMULARY MEDICATION 1 EA EA (Duloxetine HCl 60 MG) PO SCH (21:00)
[2021-01-15] MEDS ORDERED: MONTELUKAST 10 MG (SINGULAIR) TAB PO SCH (21:00)
[2021-01-15] MEDS ORDERED: OMEPRAZOLE 20 MG (PriLOSEC) CAP NON-FORMULARY PO SCH (21:00)
[2021-01-15] MEDS ORDERED: IBUPROFEN 800 MG (MOTRIN) TAB PO ONE (21:15)
[2021-01-15] MEDS ORDERED: NICOTINE 21 MG (NICODERM) PATCH ONE (21:15)
[2021-01-15] MEDS: IBUPROFEN 800 MG (MOTRIN) TAB PO PRN (21:23)
[2021-01-15] MEDS: NICOTINE 21 MG (NICODERM) PATCH TD SCH (21:24)
[2021-01-16 00:21] VITALS: BP 97/60
[2021-01-16] MEDS: RT-ALBUTEROL/IPRATROPIUM 3 ML (DUONEB) VIAL INH SCH ×3 (01:50→10:15)
[2021-01-16] MEDS: ENOXAPARIN 60 MG/0.6 ML (LOVENOX) SYR SC SCH (02:06)
[2021-01-16 04:21] VITALS: BP 128/76
[2021-01-16] MEDS: methylPREDNISolone 40 MG/ML (Solu-MEDROL) VIAL IV SCH (05:34)
[2021-01-16] MEDS: IBUPROFEN 800 MG (MOTRIN) TAB PO PRN (05:38)
[2021-01-16 06:07] LABS: HEMOGLOBIN 11.5 g/dL (11.5-16.0); MEAN PLATELET VOLUME 10.5 fL (9.0-12.2); WHITE BLOOD COUNT 13.4 10^3/uL (4.3-11.0)
[2021-01-16 06:19] LABS: CHOLESTEROL 160 MG/DL (< 200); HDL CHOLESTEROL 38 MG/DL (40-60); TRIGLYCERIDES 105 MG/DL (<150); VLDL CHOLESTEROL 21 MG/DL (5-40)
[2021-01-16 06:20] LABS: ALANINE AMINOTRANSFERASE 7 U/L (0-55); ALBUMIN 3.9 GM/DL (3.2-4.5); ALKALINE PHOSPHATASE 150 U/L (40-136); BILIRUBIN,TOTAL 0.2 MG/DL (0.1-1.0); BUN/CREATININE RATIO 10; CALCIUM 9.5 MG/DL (8.5-10.1); CARBON DIOXIDE 27 MMOL/L (21-32); CHLORIDE 98 MMOL/L (98-107); CREATININE SERUM 0.83 MG/DL (0.60-1.30); GFR ESTIMATED > 60; GLUCOSE 187 MG/DL (70-105); SODIUM 137 MMOL/L (135-145); TOTAL PROTEIN 7.5 GM/DL (6.4-8.2)
[2021-01-16 07:34] VITALS: BP 106/70
[2021-01-16] MEDS ORDERED: ASPIRIN 81 MG CHEW (CHILDREN'S ASA) PO SCH (09:00)
[2021-01-16] MEDS: GABAPENTIN 600 MG (NEURONTIN) TAB PO SCH (09:28)
[2021-01-16] MEDS: DULoxetine 30 MG (CYMBALTA) CAP PO SCH (09:29)
[2021-01-16] MEDS: NICOTINE 21 MG (NICODERM) PATCH TD SCH (09:29)
[2021-01-16] MEDS: rOPINIRole 1 MG (REQUIP) TABLET PO SCH (09:37)
--- NOTE | 2021-01-16 10:09 | Progress Note - Cardiology ---
Cardiology SOAP Progress Note Subjective: Sitting up on the side of the bed States no further c/o CP SOB has improved Wants to go home today Objective: I&O/Vital Signs 01/16/21 01/16/21 01/16/21 01/16/21 00:21 04:21 06:34 07:34 Temp 37.0 36.6 35.8 Pulse 82 82 76 Resp 18 20 18 B/P (MAP) 97/60 (72) 128/76 (93) 106/70 (82) Pulse Ox 94 96 95 95 O2 Delivery Nasal Cannula Nasal Cannula Room Air Nasal Cannula O2 Flow Rate 3.00 3.00 3.00 01/16/21 00:00 Intake Total 540 ml Balance 540 ml Weight (Pounds): 310 Weight (Ounces): 8.0 Weight (Calculated Kilograms): [id number] Constitutional: AAO x 3, well-developed, well-nourished Respiratory: No accessory muscle use, No respiratory distress; chest expansion is symmetric, chest is bilaterally symmetric, rhonchi (scattered), other (prolonged exp phase) Cardiovascular: regular rate-rhythm; No JVD; S1 and S2 Gastrointestional: No tender; soft, round, audible bowel sounds Extremities: no lower extremity edema bilateral Neurologic/Psychiatric: grossly intact (moves all extremities) Skin: No rash on exposed areas, No ulcerations on exposed areas Results/Procedures: Labs Laboratory Tests 01/15/21 11:45: White Blood Count 12.5H, Red Blood Count 4.39, Hemoglobin 11.6, Hematocrit 39, Mean Corpuscular Volume 90, Mean Corpuscular Hemoglobin 26, Mean Corpuscular Hemoglobin Concent 29L, Red Cell Distribution Width 16.3H, Platelet Count 413H, Mean Platelet Volume 9.9, Immature Granulocyte % (Auto) 1, Neutrophils (%) (Auto) 74, Lymphocytes (%) (Auto) 17, Monocytes (%) (Auto) 6, Eosinophils (%) (Auto) 2, Basophils (%) (Auto) 1, Neutrophils # (Auto) 9.2H, Lymphocytes # (Auto) 2.1, Monocytes # (Auto) 0.7, Eosinophils # (Auto) 0.3, Basophils # (Auto) 0.1, Immature Granulocyte # (Auto) 0.1, Prothrombin Time 14.0, INR Comment 1.0, Activated Partial Thromboplast Time 32, D-Dimer 0.52H, Sodium Level 139, Potassium Level 4.2, Chloride Level 101, Carbon Dioxide Level 29, Anion Gap 9, Blood Urea Nitrogen 7, Creatinine 0.77, Estimat Glomerular Filtration Rate > 60, BUN/Creatinine Ratio 9, Glucose Level 90, Calcium Level 9.2, Corrected Calcium 9.2, Magnesium Level 1.9, Total Bilirubin 0.3, Aspartate Amino Transf (AST/SGOT) 13, Alanine Aminotransferase (ALT/SGPT) 7, Alkaline Phosphatase 147H, Myoglobin 33.3, Troponin I < 0.028, B-Type Natriuretic Peptide 299.5H, Total Protein 7.6, Albumin 4.0 01/15/21 11:47: Blood Gas Puncture Site LEFT RADIAL, Blood Gas Patient Temperature 36.5, Arterial Blood pH 7.34*L, Arterial Blood Partial Pressure CO2 56H, Arterial Blood Partial Pressure O2 45L, Arterial Blood HCO3 29H, Arterial Blood Total CO2 31.0, Arterial Blood Oxygen Saturation 66L, Arterial Blood Base Excess 3.8H, [place] Test YES-POS, Blood Gas Ventilator Setting NO, Blood Gas Inspired Oxygen 3L 01/15/21 18:15: Troponin I < 0.028 01/16/21 05:13: White Blood Count 13.4H, Red Blood Count 4.42, Hemoglobin 11.5, Hematocrit 40, Mean Corpuscular Volume 91, Mean Corpuscular Hemoglobin 26, Mean Corpuscular Hemoglobin Concent 29L, Red Cell Distribution Width 16.1H, Platelet Count 414H, Mean Platelet Volume 10.5, Sodium Level 137, Potassium Level 4.0, Chloride Level 98, Carbon Dioxide Level 27, Anion Gap 12, Blood Urea Nitrogen 8, Creatinine 0.83, Estimat Glomerular Filtration Rate > 60, BUN/Creatinine Ratio 10, Glucose Level 187H, Calcium Level 9.5, Corrected Calcium 9.6, Total Bilirubin 0.2, Aspartate Amino Transf (AST/SGOT) 8, Alanine Aminotransferase (ALT/SGPT) 7, Alkaline Phosphatase 150H, Total Protein 7.5, Albumin 3.9, Triglycerides Level 105, Cholesterol Level 160, LDL Cholesterol Direct 118, VLDL Cholesterol 21, HDL Cholesterol 38L A/P: Assessment: Chest discomfort of undetermined etiology, no evidence of ACS - no further c/o Chronic shortness of breath, multifactorial (see below) Obesity-hypoventilation and LOLI syndrome Acute on chronic obstructive pulmonary disease Partial vocal cord paralysis following mediastinal surgery for mediastinal lymphadenopathy; this has been followed by vocal cord surgery at [facility] Acute on chronic diastolic CHF. Echo of 06/02/17: LVEF 60-65% Holter study of 12-21-15 showed NSR with average HR o 89 bpm. Infrequent PVC, isolated and coupled. No VT or SVT or significant bradycardia Cardiac catheterization of 11-16-2013 showed angiographically normal coronary arteries. LVEF 60%. LVEDP, no significant mitral regurg. MPI of 01-02-16 showed no evidence of any significant myocardial ischemia or infarction. LVEF 80%. Normal regional wall motion. Echocardiogram of January 15, 2021 showed LVEF 65-70%. PASP 50-55 mmHg Chronic back and joint pain. History of anxiety and depression, currently controlled. History of fatty liver. Chronic tobaccoism which cessation has been advised. Previous hospitalization with narcotic overdose. At that time, she also had liver enzyme elevation which was improving at the time of discharge and is being followed by Dr. Saldaña. Gastroesophageal reflux disease with recent GI bleed during hospitalization 02/02/2013 Hypokalemia due to diuretic use Myofascial pain syndrome and lumbar spondylosis, managed by Dr Cr Chronic chest pain syndrome, chronic Chronic anemia, managed by her [facility] physician. Plan: No further c/o CP No evidence of ACS OK to discharge home from cardiac stand point with out pt f/u Advised immediate and complete smoking cessation Clinical Quality Measures AMI/AHF: ASA po Prior to arrival: Yes BEV BAIN Jan 16, 2021 10:09
[2021-01-16 11:32] VITALS: BP 96/66
[2021-01-16] MEDS ORDERED: PRD20T PO (12:07)
[2021-01-16] MEDS ORDERED: RT-ALBUINH IH (12:07)
--- NOTE | 2021-01-16 12:08 | Discharge Summary ---
Discharge [facility] Discharge Medications New, Converted or Re-Newed RX: Transmitted to Pharmacy New Medications: Albuterol Sulfate (Proair Hfa) 1 Puff Puff 2 PUFF IH Q4H PRN for SHORTNESS OF BREATH, #1 INH 0 Refills 1 PUFF = 90 MCG Prednisone (Prednisone) 20 Mg Tab 40 MG PO DAILY for 5 Days, #10 TAB 0 Refills Continued Medications: Carvedilol (Carvedilol) 3.125 Mg Tablet 3.125 MG PO BID, TAB Clonidine HCl (Clonidine HCl) 0.1 Mg Tablet 0.1 MG PO BID PRN for ANXIETY, TAB Duloxetine HCl (Duloxetine HCl) 60 Mg Capsule.dr 60 MG PO BID, CAP Gabapentin (Gabapentin) 600 Mg Tablet 600 MG PO TID, TAB Montelukast Sodium (Montelukast Sodium) 10 Mg Tablet 10 MG PO HS, TAB Omeprazole (Omeprazole) 20 Mg Capsule.dr 20 MG PO HS, TAB Potassium Gluconate (Potassium Gluconate 595 MG) 99 Mg Tablet 99 MG PO DAILY, TAB Ropinirole HCl (Ropinirole HCl) 1 Mg Tablet 1 MG PO TID, TAB LAST FILLED 07-16-2020 #270/90 DAY SUPPLY Tizanidine HCl (Tizanidine HCl) 4 Mg Tablet 4 MG PO TID, TAB Patient Instructions Goal/Follow Up Appt: Follow up with Bryan Childs at [facility] on 01/23 at 2 pm. Follow up with Cardiology as directed. Activity & Diet Discharge Diet: Cardiac Diet Activity as Tolerated: Yes ANGIE DAVIS MD Jan 16, 2021 12:08
--- NOTE | 2021-01-16 12:30 | Discharge Summary ---
CORY GARCIA,MED STUDENT 01/16/21 1215: Discharge Summary Hospital Course Problems Reviewed?: Yes Problems/Diagnosis: (1) COPD EXACERBATION Status: Acute Assessment & Plan: Solumedrol, RT protocol. (2) Chest pain Status: Acute Assessment & Plan: Cardiology consulted, appreciate recommendations. Troponin negative. (3) Respiratory failure with hypoxia and hypercapnia Status: Acute Assessment & Plan: Requiring 3 lpm supplemental oxygen, mildly acidotic. Suspect due to combination of COPD and CHF exacerbation. Qualifiers: Qualified Codes: J96.21 - Acute and chronic respiratory failure with hypoxia; J96.22 - Acute and chronic respiratory failure with hypercapnia (4) CHF (congestive heart failure) Status: Acute Assessment & Plan: Cardiology consulted, appreciate recommendations. Repeat echocardiogram, diurese as needed. Qualifiers: Qualified Codes: I50.33 - Acute on chronic diastolic (congestive) heart failure (5) Migraine Status: Chronic (6) Morbid obesity Status: Chronic (7) Leukocytosis Status: Acute Assessment & Plan: Suspect reactive, monitor. (8) Alkaline phosphatase elevation Status: Chronic Assessment & Plan: Intermittently elevated since at least 2012, known hepatic steatosis, monitor. (9) Hepatic steatosis Status: Chronic (10) Thrombocytosis Status: Acute Assessment & Plan: Suspect reactive, monitor. (11) DVT prophylaxis Status: Acute Assessment & Plan: Enoxaparin Hospital Course Date of Admission: Jan 15, 2021 at 12:52 Admission Diagnosis : Family Physician/Provider: [facility] Date of Discharge: 01/16/21 Discharge Diagnosis: COPD Exacerbation, Heart Failure Exacerbation Hospital Course: Kateryna Romo is a 46yo female that presented with increasing central chest pain, fatigue, shortness of breath, and a frontal headache. The centralized chest pain felt similar to her past heart failure exacerbations. Shortness of breath associated with the chest pain, and required some oxygen supplementation (with a baseline of not requiring oxygen at home). Troponin wasn't elevated on admission, but had an elevated BNP of 299.5. ABG of 7.34/56/45/29. She presented with leukocytosis and thrombocytosis, which were suspected to be reactive to her exacerbation. She also was found to have an elevated alk phos, which has been intermittently elevated since 2012. She was treated with Nitroglycerin, which resolved her chest pain. She was treated with Albuterol/Ipratropium, which helped resolve her shortness of breath. Started on solumedrol for her COPD exacerbation. She was also given a dose of Lasix to help with any volume overload. Upon discharge she denies any chest pain, shortness of breath, or fatigue. Labs and Pending Lab Test: Laboratory Tests 01/15/21 18:15: Troponin I < 0.028 01/16/21 05:13: White Blood Count 13.4H, Red Blood Count 4.42, Hemoglobin 11.5, Hematocrit 40, Mean Corpuscular Volume 91, Mean Corpuscular Hemoglobin 26, Mean Corpuscular Hemoglobin Concent 29L, Red Cell Distribution Width 16.1H, Platelet Count 414H, Mean Platelet Volume 10.5, Sodium Level 137, Potassium Level 4.0, Chloride Level 98, Carbon Dioxide Level 27, Anion Gap 12, Blood Urea Nitrogen 8, Creatinine 0.83, Estimat Glomerular Filtration Rate > 60, BUN/Creatinine Ratio 10, Glucose Level 187H, Calcium Level 9.5, Corrected Calcium 9.6, Total Bilirubin 0.2, Aspartate Amino Transf (AST/SGOT) 8, Alanine Aminotransferase (ALT/SGPT) 7, Alkaline Phosphatase 150H, Total Protein 7.5, Albumin 3.9, Triglycerides Level 105, Cholesterol Level 160, LDL Cholesterol Direct 118, VLDL Cholesterol 21, HDL Cholesterol 38L Home Meds Active Reported Potassium Gluconate 595 MG (Potassium Gluconate) 99 Mg Tablet 99 Mg PO DAILY Omeprazole 20 Mg Capsule.dr 20 Mg PO HS Montelukast Sodium 10 Mg Tablet 10 Mg PO HS Clonidine HCl 0.1 Mg Tablet 0.1 Mg PO BID PRN Duloxetine HCl 60 Mg Capsule.dr 60 Mg PO BID Carvedilol 3.125 Mg Tablet 3.125 Mg PO BID Gabapentin 600 Mg Tablet 600 Mg PO TID Tizanidine HCl 4 Mg Tablet 4 Mg PO TID Ropinirole HCl 1 Mg Tablet 1 Mg PO TID LAST FILLED 07-16-2020 #270/90 DAY SUPPLY Assessment/Pt DC Instructions Presented with COPD exacerbation requiring oxygen therapy, nebulizers and initiation of steroids. Possible HF exacerbation, requiring a dose of Lasix for possible volume overload. Continue steroid taper for COPD exacerbation, with oxygen therapy available at home as needed. Will send patient home with nebulizers in case of future exacerbation and shortness of breath. Discharge Physical Examination Allergies: Coded Allergies: acetaminophen (Verified Allergy, Unknown, 06/09/14) erythromycin base (Verified Allergy, Unknown, PT CAN TAKE AZITHROMYCIN, 06/09/14) minocycline (Verified Adverse Reaction, Mild, N/V, 06/09/14) General Appearance: No Apparent Distress HEENT: No Scleral Icterus (L), No Scleral Icterus (R) Respiratory: Lungs Clear, Normal Breath Sounds; No Respiratory Distress Cardiovascular: Regular Rate, Rhythm Gastrointestinal: Normal Bowel Sounds Extremity: No Pedal Edema Skin: Normal Color Neurologic/Psychiatric: Alert, Oriented x3 Discharge Summary Date of Admission Jan 15, 2021 at 12:52 Date of Discharge Clinical Quality Measures AMI/AHF: ASA po Prior to arrival: Yes ANGIE DAVIS MD 01/16/21 1920: Discharge Summary Discharge Physical Examination Allergies: Coded Allergies: acetaminophen (Verified Allergy, Unknown, 06/09/14) erythromycin base (Verified Allergy, Unknown, PT CAN TAKE AZITHROMYCIN, 06/09/14) minocycline (Verified Adverse Reaction, Mild, N/V, 06/09/14) Supervisory-Addendum Brief Verification & Attestation Participated in pt care: history, MDM, physical Personally performed: exam, history Care discussed with: Medical Student Procedures: n/a I personally saw and examined patient and agree with documentation by medical student. Patient requesting d/c and cleared by Cardiology, discharged on prednisone burst and with albuterol inhaler as needed. Echocardiogram unremarkable. CORY GARCIA,MED STUDENT Jan 16, 2021 12:15 ANGIE DAVIS MD Jan 16, 2021 19:20
[2021-01-16 13:30] VITALS: BP 96/66
[2021-01-16] MEDS ORDERED: NICOTINE PATCH REMOVAL TP SCH (21:00)
== END 2021-01-16 13:30 | disposition home or self-care (01) | DRG 291 ==
LOC: EDUNIT# 11:31 → ER 11:33 → 4TH 12:52
PROVIDERS: ADMIT Family Medicine; ATTEND Family Medicine
DX: I11.0 Hypertensive heart disease with heart failure (principal); J96.21 Acute and chronic respiratory failure with hypoxia; J96.22 Acute and chronic respiratory failure with hypercapnia; J44.1 Chronic obstructive pulmonary disease with (acute) exacerbation; G47.39 Other sleep apnea; E78.00 Pure hypercholesterolemia, unspecified; G43.909 Migraine, unspecified, not intractable, without status migrainosus; E11.40 Type 2 diabetes mellitus with diabetic neuropathy, unspecified; K21.9 Gastro-esophageal reflux disease without esophagitis; M19.90 Unspecified osteoarthritis, unspecified site; M79.7 Fibromyalgia; M54.9 Dorsalgia, unspecified; E66.01 Morbid (severe) obesity due to excess calories; E03.9 Hypothyroidism, unspecified; F41.9 Anxiety disorder, unspecified; F32.9 Major depressive disorder, single episode, unspecified; F17.210 Nicotine dependence, cigarettes, uncomplicated; G25.81 Restless legs syndrome; I50.33 Acute on chronic diastolic (congestive) heart failure; D72.829 Elevated white blood cell count, unspecified; K76.0 Fatty (change of) liver, not elsewhere classified; D47.3 Essential (hemorrhagic) thrombocythemia; G47.33 Obstructive sleep apnea (adult) (pediatric); J38.00 Paralysis of vocal cords and larynx, unspecified; E87.6 Hypokalemia; T50.2X5A Adverse effect of carbonic-anhydrase inhibitors, benzothiadiazides and other diuretics, initial encounter; G89.4 Chronic pain syndrome; D64.9 Anemia, unspecified
CPT/HCPCS: 36415; 71045; 71275; 80053; 80061; 82805; 83735; 83874; 83880; 84484; 85025; 85027; 85379; 85610; 85730; 93005; 93041; 93306; 94640; 94760; 94761

== ENCOUNTER 2021-04-19 19:25 | Emergency (ER) | payer MEDICARE, MEDICAID ==
[~2021-04-19] VITALS: Ht 168 cm; Wt 141.0 kg
[~2021-04-19 19:25] MED LIST changes: +CARV3.122 PO; +CLN.1T PO; +DULO60CA59 PO; +MONT10TA32 PO; +OMEP20CA18 PO; +POTA99TA17 PO; +RT-ALBUINH IH; -SULF1TAB35 PO; +TIZA4TAB4 PO
[2021-04-19] MEDS ORDERED: LACTATED RINGERS 1,000 ML IV SCH (20:00)
--- NOTE | 2021-04-19 20:01 | ED General ---
General Chief Complaint: Chest Pain Stated Complaint: SOAR THROAT, SOB, CHEST TIGHTNESS Nursing Triage Note: CHEST TIGHTNESS, SOA, SORE THROAT SINCE FRIDAY EVENING. REPORTS RECENT COVID EXPOSURE Source of Information: Patient Exam Limitations: No Limitations History of Present Illness Date Seen by Provider: Apr 19, 2021 Time Seen by Provider: 19:45 Initial Comments Patient is a 46-year-old female with a past medical history significant for CHF, COPD "prediabetes", morbid obesity who presents with a chief complaint of shortness of breath, sore throat, chest tightness and recent Covid exposures. Patient states multiple family members have diagnosed positive with Covid. She states she started experiencing symptoms on Friday night early Friday morning of this week. Today is . Patient states that she has had subjective fever. She has had a little bit of nausea, loss of appetite and diarrhea. No swelling in her legs or significant cramping in her calves. She does endorse some muscle aches. Patient is Covid vaccinated in December with a [employer] vaccine. She denies dysuria, urgency or frequency. She is not on diuretics for her CHF. 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 She was supposed to have an appointment earlier this week bed canceled it secondary to her symptoms. Patient presents to the room obviously dyspneic with oxygen saturations at 83% on room air. Patient does use home oxygen at 3 L per nasal cannula at night. She states she has seen her pulse ox as low as 80 at home in the past. She does use inhalers. She continues to smoke cigarettes, 1 pack/day. All other review of systems reviewed and negative except as stated above. Timing/Duration: 2-3 Days Severity: Moderate Modifying Factors: worse with Movement Associated Systoms: Chest Pain (Chest tightness), Cough (Productive), Fever/Chills (Subjective fever), Headaches, Loss of Appetite, Nausea/Vomiting (Nausea without vomiting), Shortness of Air, Other (Diarrhea) Allergies and Home Medications Allergies Coded Allergies: acetaminophen (Verified Allergy, Unknown, 06/09/14) erythromycin base (Verified Allergy, Unknown, PT CAN TAKE AZITHROMYCIN, 06/09/14) minocycline (Verified Adverse Reaction, Mild, N/V, 06/09/14) Home Medications Albuterol Sulfate 1 Puff Puff, 2 PUFF IH Q4H PRN for SHORTNESS OF BREATH 1 PUFF = 90 MCG Prescribed by: ANGIE DAVIS on 01/16/211206 Azithromycin 250 Mg Tablet, 250 MG PO DAILY Prescribed by: ROBERTO CARLOS JIMENEZ on 04/19/212131 Carvedilol 3.125 Mg Tablet, 3.125 MG PO BID, (Reported) Cefdinir 300 Mg Capsule, 300 MG PO BID Prescribed by: ROBERTO CARLOS JIMENEZ on 04/19/212131 Clonidine HCl 0.1 Mg Tablet, 0.1 MG PO BID PRN for ANXIETY, (Reported) Duloxetine HCl 60 Mg Capsule.dr, 60 MG PO BID, (Reported) Gabapentin 600 Mg Tablet, 600 MG PO TID, (Reported) Montelukast Sodium 10 Mg Tablet, 10 MG PO HS, (Reported) Omeprazole 20 Mg Capsule.dr, 20 MG PO HS, (Reported) Potassium Gluconate 99 Mg Tablet, 99 MG PO DAILY, (Reported) Prednisone 20 Mg Tab, 40 MG PO DAILY Prescribed by: ANGIE DAVIS on 01/16/211206 Ropinirole HCl 1 Mg Tablet, 1 MG PO TID, (Reported) LAST FILLED 07-16-2020 #270/90 DAY SUPPLY Tizanidine HCl 4 Mg Tablet, 4 MG PO TID, (Reported) Patient Home Medication List Home Medication List Reviewed: Yes Review of Systems Review of Systems Constitutional: see HPI, malaise, weakness EENTM: throat pain Respiratory: cough, dyspnea on exertion, short of breath Cardiovascular: chest pain ("Chest tightness") Gastrointestinal: diarrhea, loss of appetite, nausea Genitourinary: no symptoms reported Musculoskeletal: muscle cramps Skin: no symptoms reported Psychiatric/Neurological: No Symptoms Reported All Other Systems Reviewed Negative Unless Noted: Yes Past Czdszrp-Symbjf-Umhuit Hx Patient Social History Tobacco Use?: Yes Tobacco type used: Cigarettes Smoking Status: Current Everyday Smoker Use of E-Cig and/or Vaping dev: No Substance use?: No Alcohol Use?: No Pt feels they are or have been: No Immunizations Up To Date Tetanus Booster (TDap): Less than 5yrs First/Initial COVID19 Vaccinat: 01/10 Second COVID19 Vaccination Justin: 01/10 Seasonal Allergies Seasonal Allergies: No Past Medical History Surgery/Hospitalization HX: RECENT COVID EXPOSURE, Surgeries: Yes Appendectomy, Gallbladder, Orthopedic, Tonsillectomy Respiratory: Yes (sarcoidosis) Sleep Apnea, COPD Currently Using CPAP: No Currently Using BIPAP: No Cardiac: Yes (CHF;PULMONARY HTN) Chronic Edema/Swelling, High Cholesterol, Hypertension Neurological: Yes Headaches /Migraines, Neuropathy Reproductive Disorders: No Female Reproductive Disorders: Menstrual Problems, Ovarian Cyst Sexually Transmitted Disease: No HIV/AIDS: No Genitourinary: Yes Renal Failure, UTI-Chronic Gastrointestinal: Yes (FATTY LIVER DISEASE) Gastroesophageal Reflux, Liver Disease/Jaundice, Gastrointestinal Bleed, Esoph agitis, Hiatal Hernia Musculoskeletal: Yes ( RESTLESS LEG SYNDROME) Arthritis, Fibromyalgia, Chronic Back Pain Endocrine: Yes (MORBID OBESITY) Hypothyroidsim, Diabetes, Non-Insulin dep HEENT: Yes ("VOCAL CORD DYSFUNCTION" ) Dysphagia Cancer: No Psychosocial: Yes (NARCOTIC OVERDOSE 12/2012) Anxiety, Depression Integumentary: Yes (CHRONIC LEFT LEG CELLULITIS) Recent Skin Changes Blood Disorders: No Adverse Reaction/Blood Tranf: No Family Medical History Family history: Hypertension 09 SISTER (43 ) Family history: Thyroid disorder 03 MOTHER (41 ) Stroke 03 FATHER (47 ) Heart Disease, Hypertension Physical Exam-Suspected Sepsis Physical Exam Vital Signs Vital Signs - First Documented Capillary Refill : Less Than 3 Seconds Blood Pressure Mean: 97 Height, Weight, BMI Height: 5'6.00" Weight: 310lbs. 8.0oz. 140.001165xt; 49.00 BMI Method:Stated General Appearance: WD/WN (Morbidly obese), Mild Distress Eyes: Bilateral Eye Normal Inspection, Bilateral Eye PERRL, Bilateral Eye EOMI HEENT: PERRL/EOMI, Pharynx Normal Neck: Full Range of Motion Respiratory: Lungs Clear, Normal Breath Sounds, No Accessory Muscle Use, No Respiratory Distress, Other (Slightly labored breathing without wheezes rhonchi or crackles) Cardiovascular: Regular Rate, Rhythm, Normal Peripheral Pulses, Other (Brisk capillary refill no) Gastrointestinal: Non Tender, Soft Extremity: Normal Capillary Refill, Normal Inspection, Normal Range of Motion, Non Tender, No Calf Tenderness Neurologic/Psychiatric: Alert, Oriented x3, No Motor/Sensory Deficits, Normal Mood/Affect Skin: normal color, warm/dry, other (Slight erythema noted to the distal left lower extremity that the patient states is chronic. She has had a history of cellulitis to this leg that has never really gone away.) Focused Exam Lactate Level 04/19/21 19:52: Lactic Acid Level 1.58 Lactic Acid Level Laboratory Tests Test 04/19/21 19:52 Lactic Acid Level 1.58 MMOL/L (0.50-2.00) Procedures/Interventions Suture Size: 5-0 Progress/Results/Core Measures Suspected Sepsis Infection Criteria Present: Suspected New Infection New/Unexplained Altered Menta: No Within 3hrs of presentation: Admin fluids, Admin ABX, Blood cultures prior to ABX's, D/C Instructions given to patient, Lactate level SIRS Temperature: Pulse: 79 Respiratory Rate: 20 Laboratory Tests 04/19/21 19:52: White Blood Count 12.0H Blood Pressure 124 /84 Mean: 97 04/19/21 19:52: Lactic Acid Level 1.58 Laboratory Tests 04/19/21 19:52: Creatinine 0.96, INR Comment 1.0, Platelet Count 385, Total Bilirubin 0.2 Results/Orders Lab Results Laboratory Tests Test 04/19/21 19:52 Range/Units White Blood Count 12.0 H 4.3-11.0 10^3/uL Red Blood Count 5.23 H 3.80-5.11 10^6/uL Hemoglobin 13.0 11.5-16.0 g/dL Hematocrit 44 35-52 % Mean Corpuscular Volume 85 80-99 fL Mean Corpuscular Hemoglobin 25 25-34 pg Mean Corpuscular Hemoglobin Concent 29 L 32-36 g/dL Red Cell Distribution Width 19.4 H 10.0-14.5 % Platelet Count 385 130-400 10^3/uL Mean Platelet Volume 10.3 9.0-12.2 fL Immature Granulocyte % (Auto) 0 % Neutrophils (%) (Auto) 76 H 42-75 % Lymphocytes (%) (Auto) 16 12-44 % Monocytes (%) (Auto) 5 0-12 % Eosinophils (%) (Auto) 2 0-10 % Basophils (%) (Auto) 1 0-10 % Neutrophils # (Auto) 9.1 H 1.8-7.8 10^3/uL Lymphocytes # (Auto) 1.9 1.0-4.0 10^3/uL Monocytes # (Auto) 0.6 0.0-1.0 10^3/uL Eosinophils # (Auto) 0.3 0.0-0.3 10^3/uL Basophils # (Auto) 0.1 0.0-0.1 10^3/uL Immature Granulocyte # (Auto) 0.1 0.0-0.1 10^3/uL Prothrombin Time 13.5 12.2-14.7 SEC INR Comment 1.0 0.8-1.4 Activated Partial Thromboplast Time 33 24-35 SEC D-Dimer 0.40 0.00-0.49 UG/ML Sodium Level 139 135-145 MMOL/L Potassium Level 3.9 3.6-5.0 MMOL/L Chloride Level 102 98-107 MMOL/L Carbon Dioxide Level 28 21-32 MMOL/L Anion Gap 9 5-14 MMOL/L Blood Urea Nitrogen 9 7-18 MG/DL Creatinine 0.96 0.60-1.30 MG/DL Estimat Glomerular Filtration Rate 63 BUN/Creatinine Ratio 9 Glucose Level 115 H 70-105 MG/DL Lactic Acid Level 1.58 0.50-2.00 MMOL/L Calcium Level 9.6 8.5-10.1 MG/DL Corrected Calcium 9.8 8.5-10.1 MG/DL Total Bilirubin 0.2 0.1-1.0 MG/DL Aspartate Amino Transf (AST/SGOT) 17 5-34 U/L Alanine Aminotransferase (ALT/SGPT) 16 0-55 U/L Alkaline Phosphatase 141 H 40-136 U/L C-Reactive Protein High Sensitivity 1.39 H 0.00-0.50 MG/DL B-Type Natriuretic Peptide 44.5 <100.0 PG/ML Total Protein 7.4 6.4-8.2 GM/DL Albumin 3.8 3.2-4.5 GM/DL SARS-CoV-2 RNA (RT-PCR) Not Detected Not Detecte My Orders Orders - ROBERTO CARLOS JIMENEZ MD Ketorolac Injection (Toradol Injection) (04/19/21 20:15) Prochlorperazine Injection (Compazine In (04/19/21 20:15) Diphenhydramine Injection (Benadryl Inje (04/19/21 20:15) Ceftriaxone (Rocephin) (04/19/21 21:30) Azithromycin Tablet (Zithromax Tablet) (04/19/21 21:30) Medications Given in ED Current Medications Medications Dose Ordered Sig/Simon Route Start Time Stop Time Status Last Admin Dose Admin Azithromycin 500 mg ONCE ONCE PO 04/19/21 21:30 04/19/21 21:31 DC 04/19/21 21:35 500 MG Ceftriaxone Sodium 1000 mg/ Sterile Water 10 ml @ 200 mls/hr ONCE ONCE IV 04/19/21 21:30 04/19/21 21:32 DC 04/19/21 21:35 200 MLS/HR Diphenhydramine HCl 25 mg ONCE ONCE IV 04/19/21 20:15 04/19/21 20:16 DC 04/19/21 20:14 25 MG Ketorolac Tromethamine 15 mg ONCE ONCE IVP 04/19/21 20:15 04/19/21 20:16 DC 04/19/21 20:14 15 MG Prochlorperazine Edisylate 10 mg ONCE ONCE IV 04/19/21 20:15 04/19/21 20:16 DC 04/19/21 20:14 10 MG Vital Signs/I&O 04/19/21 04/19/21 04/19/21 19:40 19:40 19:40 Pulse 79 Resp 20 B/P (MAP) 124/84 (97) Pulse Ox 100 O2 Delivery Nasal Cannula Nasal Cannula Nasal Cannula O2 Flow Rate 3.0 3.00 3.0 FiO2 100 Capillary Refill : Less Than 3 Seconds Blood Pressure Mean: 97 Progress Note : Time: 21:27 Progress Note Patient is sitting up on the side of the bed, states that she feels a little better. Oxygen is 96% on 2 to 3 L. Patient has oxygen at home. Labs have been reviewed, she has a mild elevation in her CRP. Lactic acid is less than 2. White count is 12,000. Electrolytes are normal. Chest x-ray shows bibasilar alveolar infiltrates versus a little bit of pulmonary edema. Her BNP is low so I suspect more infiltrates with her symptomatology rather than congestive failure. She has no peripheral edema. I do not suspect CHF. Suspect more of an infectious etiology. Covid was negative. Would be curious to see if a repeat Covid test in 48 hours turns positive. Sending her home after Rocephin and azithromycin here on cefdinir and azithromycin tablets. Patient is comfortable with this plan of care. She is eager for discharge. I have counseled her to use her home oxygen and to monitor her pulse ox. I do not want her dipping below 88%. Patient states that she will follow up with her primary care physician. All questions have been sought and answered. Patient is stable for discharge. ECG Initial ECG Impression Date: Apr 19, 2021 Initial ECG Impression Time: 19:44 Initial ECG Rate: 74 Initial ECG Rhythm: Normal Sinus Initial ECG Intervals: Normal Initial ECG Intervals KS interval 149 QRS [address]-T wave changes in leads III and aVF, inverted T waves in lead III otherwise unremarkable EKG Initial ECG Impression: Nonspecific Changes Diagnostic Imaging Diagonstic Imaging: Xray Plain Films/CT/US/NM/MRI: chest Comments [facility] [place], [place] NAME: TUAN ORANTES [facility] REC#: [id number] PT STATUS: REG ER : 1975 PHYSICIAN: ERICA MCPHERSON APRN ADMIT DATE: 04/19/21/ER Signed Date of Exam:04/19/21 CHEST 1 VIEW, AP/PA ONLY EXAMINATION: Chest radiograph, portable AP view. DATE: 04/19/2021 8:06 PM INDICATION: 46-year-old female, chest pain, shortness of breath. COMPARISON: January 15, 2021. FINDINGS: Stable overall appearance of the cardiomediastinal silhouette. There is no identified pneumothorax. There is no large pleural effusion. There are bilateral interstitial and/or alveolar opacities. There are technical limitations of the exam given patient body habitus and difficulties with exposure. IMPRESSION: 1. Redemonstrated cardiomegaly with bilateral interstitial and/or alveolar opacities. Differential considerations would include pulmonary edema, atypical infection, pneumonitis. 2. Technically limited study. Dictated by: Dictated on workstation # [id number] Dict: 04/19/212011 Trans: 04/19/21 2019 E [id number] Interpreted by: FERNANDO RODRIGUEZ MD Electronically signed by: FERNANDO RODRIGUEZ MD 04/19/212018 Critical Care Note Critical Care Start Time: 19:45 Stop Time: 21:30 Total Time (minutes) 30 minutes critical care time in the evaluation and management of this patient with cough congestion, Covid symptoms and hypoxia with room air saturations at 83%. Time includes management of hypoxia with supplemental oxygenation. IV fluids, septic work-up. Review of medical records discussion with patient. Departure Impression Primary Impression: Pneumonia Qualified Codes: J18.9 - Pneumonia, unspecified organism Additional Impression: Hypoxia Disposition: 01 HOME, SELF-CARE Condition: Stable Departure-Patient Inst. Decision time for Depature: 21:31 Referrals: [facility] (PCP/Family) Primary Care Physician Patient Instructions: Pneumonia, Adult (DC) Add. Discharge Instructions: Drink plenty of fluids to stay well-hydrated. Avoid excess salt as this will cause you to retain fluids. Take the antibiotics daily as prescribed. Cefdinir 300 mg twice daily for 7 days and a azithromycin 250 mg once a day for the next 4 days. Use your oxygen at home to keep your saturations above 88%. If you develop worsening shortness of breath, fever, any other emergent concerni ng symptoms do not hesitate to come back to the emergency department for reevaluation. Your Covid test today was negative. Scripts Azithromycin (Azithromycin) 250 Mg Tablet 250 MG PO DAILY, #4 TAB 0 Refills Prov: ROBERTO CARLOS JIMENEZ MD 04/19/21 Cefdinir (Cefdinir) 300 Mg Capsule 300 MG PO BID, #14 CAP 0 Refills Prov: ROBERTO CARLOS JIMENEZ MD 04/19/21 ROBERTO CARLOS JIMENEZ MD Apr 19, 2021 20:01
[2021-04-19 20:12] LABS: BASOPHILS # (AUTO) 0.1 10^3/uL (0.0-0.1); BASOPHILS % (AUTO) 1 % (0-10); EOSINOPHILS # (AUTO) 0.3 10^3/uL (0.0-0.3); EOSINOPHILS % (AUTO) 2 % (0-10); HEMATOCRIT 44 % (35-52); LYMPHOCYTES # (AUTO) 1.9 10^3/uL (1.0-4.0); LYMPHOCYTES % (AUTO) 16 % (12-44); MEAN CORPUSCULAR HEMOGLOBIN 25 pg (25-34); MEAN CORPUSCULAR HGB CONC 29 g/dL (32-36); MEAN CORPUSCULAR VOLUME 85 fL (80-99); MEAN PLATELET VOLUME 10.3 fL (9.0-12.2); MONOCYTES # (AUTO) 0.6 10^3/uL (0.0-1.0); MONOCYTES % (AUTO) 5 % (0-12); NEUTROPHILS # (AUTO) 9.1 10^3/uL (1.8-7.8); NEUTROPHILS % (AUTO) 76 % (42-75); PLATELET COUNT 385 10^3/uL (130-400)
[2021-04-19] MEDS ORDERED: diphenhydrAMINE 50 MG/ML INJ (BENADRYL) IV ONE (20:15)
[2021-04-19] MEDS ORDERED: KETOROLAC 30 MG/ML VIAL IVP ONE (20:15)
[2021-04-19] MEDS ORDERED: PROCHLORPERAZINE 10 MG/2ML INJ (COMPAZINE) IV ONE (20:15)
--- NOTE | 2021-04-19 20:16 | Diagnostic Imaging Report ---
EXAMINATION: Chest radiograph, portable AP view. DATE: 04/19/2021 8:06 PM INDICATION: 46-year-old female, chest pain, shortness of breath. COMPARISON: January 15, 2021. FINDINGS: Stable overall appearance of the cardiomediastinal silhouette. There is no identified pneumothorax. There is no large pleural effusion. There are bilateral interstitial and/or alveolar opacities. There are technical limitations of the exam given patient body habitus and difficulties with exposure. IMPRESSION: 1. Redemonstrated cardiomegaly with bilateral interstitial and/or alveolar opacities. Differential considerations would include pulmonary edema, atypical infection, pneumonitis. 2. Technically limited study. Dictated by: Dictated on workstation # [id number]
[2021-04-19 20:41] LABS: ALBUMIN 3.8 GM/DL (3.2-4.5); BILIRUBIN,TOTAL 0.2 MG/DL (0.1-1.0); CALCIUM 9.6 MG/DL (8.5-10.1); CREATININE SERUM 0.96 MG/DL (0.60-1.30); POTASSIUM 3.9 MMOL/L (3.6-5.0); TOTAL PROTEIN 7.4 GM/DL (6.4-8.2)
[2021-04-19 21:00] LABS: FIBRIN DEGRADATION PRODUCTS 0.4 UG/ML (0.00-0.49); PROTHROMBIN TIME PATIENT 13.5 SEC (12.2-14.7)
[2021-04-19] MEDS ORDERED: AZITHROMYCIN 250 MG TAB (ZITHROMAX) PO ONE (21:30)
[2021-04-19] MEDS ORDERED: cefTRIAXone 1,000 MG in WATER (STERILE) FOR INJECTION 10 ML IV ONE (21:30)
[2021-04-19] MEDS ORDERED: AZIT250T12 PO (21:32)
[2021-04-19] MEDS ORDERED: CEFD300C3 PO (21:32)
[2021-04-19 21:41] VITALS: BP 103/67
== END 2021-04-19 21:41 | disposition home or self-care (01) ==
LOC: EDUNIT# 19:25 → ER 19:28
DX: J18.9 Pneumonia, unspecified organism (principal); R09.02 Hypoxemia; I11.0 Hypertensive heart disease with heart failure; I50.9 Heart failure, unspecified; E66.01 Morbid (severe) obesity due to excess calories; J44.9 Chronic obstructive pulmonary disease, unspecified; G47.30 Sleep apnea, unspecified; K21.9 Gastro-esophageal reflux disease without esophagitis; E11.9 Type 2 diabetes mellitus without complications; F41.9 Anxiety disorder, unspecified; F32.9 Major depressive disorder, single episode, unspecified; F17.210 Nicotine dependence, cigarettes, uncomplicated; Z20.822 Contact with and (suspected) exposure to COVID-19; Z68.42 Body mass index [BMI] 45.0-49.9, adult; Z79.52 Long term (current) use of systemic steroids; Z79.899 Other long term (current) drug therapy
CPT/HCPCS: 36415; 71045; 80053; 83605; 83880; 85025; 85379; 85610; 85730; 86141; 87040; 87636; 93005

== ENCOUNTER 2021-07-05 09:11 | Emergency (ER) | payer MEDICARE, MEDICAID ==
[~2021-07-05] VITALS: Ht 167 cm; Wt 141.0 kg
[~2021-07-05 09:11] MED LIST changes: +AZIT250T12 PO
[2021-07-05] MEDS ORDERED: ORPHENADRINE 60 MG/2 ML (NORFLEX) AMP (ED ONLY) IM ONE (09:30)
[2021-07-05] MEDS ORDERED: KETOROLAC 30 MG/ML VIAL IM ONE (09:30)
--- NOTE | 2021-07-05 09:52 | ED Hip Pain/Injury ---
General Chief Complaint: Hip/Pelvic Problems Stated Complaint: L HIP PAIN Nursing Triage Note: PT CO OF L HIP PAIN, PT STATES HAS BEEN HURTING FOR 1 WEEK. DENIES INJURY Source: patient, old records Exam Limitations: no limitations History of Present Illness Date Seen by Provider: Jul 05, 2021 Time Seen by Provider: 09:21 Initial Comments This 46 year old woman presents to the ER by private vehicle with primary complaint of left hip pain worsening over the past week. She has history of lumbar spinal fusion with hardware. She denies any trauma or triggers. She has pain from the lumbar spine down through the left lower back, buttock, and hip with occasional sharp radiation down the leg. No weakness, bowel or bladder dysfunction, or saddle paresthesias. Sensation intact. She has been taking Tylenol and ibuprofen without relief. She also takes gabapentin 600 mg twice daily, and tizanidine up to 4 mg 3 times daily but usually just at night. Review of chart reveals an MRI of the lumbar spine in 2011 revealing moderate neuroforaminal narrowing at L5-S1 but no central spinal stenosis at that time. Filling record shows a prednisone prescription filled in December. She has not had any steroids since that time. On exam she has tenderness throughout the lumbar spine, left lower back, and into the buttock. Allergies and Home Medications Allergies Coded Allergies: erythromycin base (Verified Allergy, Unknown, PT CAN TAKE AZITHROMYCIN, 06/09/14) minocycline (Verified Adverse Reaction, Mild, N/V, 06/09/14) Patient Home Medication List Home Medication List Reviewed: Yes Albuterol Sulfate (Proair Hfa) 1 Puff Puff, 2 PUFF IH Q4H PRN for SHORTNESS OF BREATH Prescribed by: ANGIE DAVIS on 01/16/21 1207 Azithromycin (Azithromycin) 250 Mg Tablet, 250 MG PO DAILY Prescribed by: ROBERTO CARLOS JIMENEZ on 04/19/212131 Carvedilol (Carvedilol) 3.125 Mg Tablet, 3.125 MG PO BID, (Reported) Entered as Reported by: MONCHO ULRICH on 01/15/21 1422 Cefdinir (Cefdinir) 300 Mg Capsule, 300 MG PO BID Prescribed by: ROBERTO CARLOS JIMENEZ on 04/19/212131 Clonidine HCl (Clonidine HCl) 0.1 Mg Tablet, 0.1 MG PO BID PRN for ANXIETY, (Reported) Entered as Reported by: MONCHO ULRICH on 01/15/21 142 Duloxetine HCl (Duloxetine HCl) 60 Mg Capsule.dr, 60 MG PO BID, (Reported) Entered as Reported by: MONCHO ULRICH on 01/15/21 142 Gabapentin (Gabapentin) 600 Mg Tablet, 600 MG PO TID, (Reported) Entered as Reported by: ANGIE DAVIS on 01/15/21 1359 Hydrocodone/Acetaminophen (Hydrocodone-Acetamin 5-325 mg) 1 Each Tablet, 1-2 TAB PO Q6H PRN for PAIN-BREAKTHROUGH Prescribed by: DILCIA WILHELM on 07/05/21 1123 Montelukast Sodium (Montelukast Sodium) 10 Mg Tablet, 10 MG PO HS, (Reported) Entered as Reported by: MONCHO ULRICH on 01/15/21 142 Omeprazole (Omeprazole) 20 Mg Capsule.dr, 20 MG PO HS, (Reported) Entered as Reported by: MONCHO ULRICH on 01/15/21 142 Potassium Gluconate (Potassium Gluconate 595 MG) 99 Mg Tablet, 99 MG PO DAILY, (Reported) Entered as Reported by: MONCHO ULRICH on 01/15/21 142 Prednisone (Prednisone) 20 Mg Tab, 40 MG PO DAILY Prescribed by: ANGIE DAVIS on 01/16/21 1207 Prednisone (Prednisone) 20 Mg Tab, 40 MG PO DAILY Prescribed by: DILCIA WILHELM on 07/05/21 1128 Ropinirole HCl (Ropinirole HCl) 1 Mg Tablet, 1 MG PO TID, (Reported) Entered as Reported by: ANGIE DAVIS on 01/15/21 1359 Tizanidine HCl (Tizanidine HCl) 4 Mg Tablet, 4 MG PO TID, (Reported) Entered as Reported by: ANGIE DAVIS on 01/15/21 1359 Review of Systems Constitutional: no symptoms reported EENTM: no symptoms reported Respiratory: no symptoms reported Cardiovascular: no symptoms reported Gastrointestinal: no symptoms reported Genitourinary: no symptoms reported Musculoskeletal: see HPI Skin: no symptoms reported Psychiatric/Neurological: See HPI Past Msqapjo-Ugcsud-Fougqz Hx Patient Social History Tobacco Use?: Yes Tobacco type used: Cigarettes Smoking Status: Current Everyday Smoker Substance use?: No Alcohol Use?: No Pt feels they are or have been: No Immunizations Up To Date Tetanus Booster (TDap): Less than 5yrs First/Initial COVID19 Vaccinat: December AND Seasonal Allergies Seasonal Allergies: No Past Medical History Surgery/Hospitalization HX: RECENT COVID EXPOSURE, Surgeries: Yes Appendectomy, Gallbladder, Orthopedic (Lumbar spine surgery), Tonsillectomy Respiratory: Yes (sarcoidosis) Sleep Apnea, COPD Currently Using CPAP: No Currently Using BIPAP: No Cardiac: Yes (CHF;PULMONARY HTN) Chronic Edema/Swelling, High Cholesterol, Hypertension Neurological: Yes Headaches /Migraines, Neuropathy Reproductive Disorders: No Female Reproductive Disorders: Menstrual Problems, Ovarian Cyst Sexually Transmitted Disease: No HIV/AIDS: No Genitourinary: Yes Renal Failure, UTI-Chronic Gastrointestinal: Yes (FATTY LIVER DISEASE) Gastroesophageal Reflux, Liver Disease/Jaundice, Gastrointestinal Bleed, Esophagitis, Hiatal Hernia Musculoskeletal: Yes ( RESTLESS LEG SYNDROME) Arthritis, Fibromyalgia, Chronic Back Pain Endocrine: Yes (MORBID OBESITY) Hypothyroidsim, Diabetes, Non-Insulin dep HEENT: Yes ("VOCAL CORD DYSFUNCTION" ) Dysphagia Cancer: No Psychosocial: Yes (NARCOTIC OVERDOSE 12/2012) Anxiety, Depression Integumentary: Yes (CHRONIC LEFT LEG CELLULITIS) Recent Skin Changes Blood Disorders: No Adverse Reaction/Blood Tranf: No Family Medical History Family history: Hypertension 09 SISTER (43 ) Family history: Thyroid disorder 03 MOTHER (41 ) Stroke 03 FATHER (47 ) Heart Disease, Hypertension Physical Exam Vital Signs Vital Signs - First Documented 07/05/21 09:12 Temp 37.1 Pulse 82 Resp 18 B/P (MAP) 126/84 (98) Pulse Ox 90 O2 Delivery Room Air Capillary Refill : Less Than 3 Seconds Height, Weight, BMI Height: 5'6.00" Weight: 310lbs. 8.0oz. [id number]; 50.00 BMI Method:Stated General Appearance: WD/WN, Mild Distress, Obese HEENT: Normal ENT Inspection Neck: Normal Inspection Cardiovascular: Regular Rate, Rhythm, No Edema, No Murmur Respiratory: Lungs Clear, Normal Breath Sounds, No Accessory Muscle Use Gastrointestinal: Non Tender, Soft Back: Vertebral Tenderness (Lumbar spine), Other (Tenderness in the left paraspinous regions) Extremity: Normal Inspection, No Pedal Edema, Other (Tenderness over the left buttock and hip. No pain with rotation. No tenderness directly over the hip joint) Neurologic/Psychiatric: Alert, Oriented x3, No Motor/Sensory Deficits, Normal Mood/Affect Skin: Normal Color, Warm/Dry Procedures/Interventions Suture Size: 5-0 Progress/Results/Core Measures Results/Orders My Orders Orders - DILCIA YEE MD Ketorolac Injection (Toradol Injection) (07/05/21 09:30) Orphenadrine Inj (Ed Only) (Norflex Inje (07/05/21 09:30) Hydrocodone/Apap 5/325 Tablet (Lortab 5 (07/05/21 11:00) Medications Given in ED Current Medications Medications Dose Ordered Sig/Simon Route Start Time Stop Time Status Last Admin Dose Admin Acetaminophen/ Hydrocodone Bitart 1 ea ONCE ONCE PO 07/05/21 11:00 07/05/21 11:01 DC 07/05/21 11:22 1 EA Ketorolac Tromethamine 30 mg ONCE ONCE IM 07/05/21 09:30 07/05/21 09:31 DC 07/05/21 09:43 30 MG Orphenadrine Citrate 60 mg ONCE ONCE IM 07/05/21 09:30 07/05/21 09:31 DC 07/05/21 09:43 60 MG Vital Signs/I&O 07/05/21 07/05/21 09:12 11:28 Temp 37.1 37.1 Pulse 82 82 Resp 18 18 B/P (MAP) 126/84 (98) 126/84 Pulse Ox 90 90 O2 Delivery Room Air Room Air Blood Pressure Mean: 98 Progress Progress Note : Progress Note Patient was given Norflex and Toradol with modest improvement. Hydrocodone was given prior to departure. See discharge instructions for further discussion. Departure Impression Primary Impression: Lumbar radiculopathy, acute Additional Impression: Low back pain Qualified Codes: M54.42 - Lumbago with sciatica, left side Disposition: 01 HOME, SELF-CARE Condition: Improved Departure-Patient Inst. Decision time for Depature: 11:20 Referrals: [facility] (PCP/Family) Primary Care Physician Patient Instructions: Low Back Pain (DC), Radiculopathy Add. Discharge Instructions: Avoid heavy lifting, bending, and strenuous activity until your pain resolves. Follow-up with your primary care provider within 1 week. If treatment with steroids does not resolve your symptoms, you may need further evaluation or tr eatment such as MRI, physical therapy, etc. Please discuss with your primary care provider. You may continue your usual medications including tizanidine, gabapentin, and ibuprofen. Add hydrocodone for pain not controlled by these medications. Complete the 4 days of prednisone as prescribed. Call with questions or concerns. Return to the emergency room if you have worsening symptoms, especially if you have escalating pain, true weakness in your legs, bowel or bladder dysfunction, or numbness in your groin. All discharge instructions reviewed with patient and/or family. Voiced understanding. Scripts Prednisone (Prednisone) 20 Mg Tab 40 MG PO DAILY, #8 TAB 0 Refills Prov: DILCIA YEE MD 07/05/21 Hydrocodone/Acetaminophen (Hydrocodone-Acetamin 5-325 mg) 1 Each Tablet 1-2 TAB PO Q6H PRN for PAIN-BREAKTHROUGH, #12 TAB Prov: DILCIA YEE MD 07/05/21 DILCIA YEE MD Jul 05, 2021 09:52
[2021-07-05] MEDS ORDERED: HYDROcodone/APAP 5 MG/325 MG (LORTAB) TAB PO ONE (11:00)
[2021-07-05] MEDS ORDERED: ACHD5005 PO (11:23)
[2021-07-05 11:28] VITALS: BP 126/84
[2021-07-05] MEDS ORDERED: PRD20T PO (11:28)
== END 2021-07-05 11:28 | disposition home or self-care (01) ==
LOC: EDUNIT# 09:11 → ER 09:13
DX: M54.16 Radiculopathy, lumbar region (principal); J44.9 Chronic obstructive pulmonary disease, unspecified; I11.0 Hypertensive heart disease with heart failure; G47.30 Sleep apnea, unspecified; I50.9 Heart failure, unspecified; F41.9 Anxiety disorder, unspecified; F32.9 Major depressive disorder, single episode, unspecified; K21.9 Gastro-esophageal reflux disease without esophagitis; G89.29 Other chronic pain; E11.9 Type 2 diabetes mellitus without complications; E66.01 Morbid (severe) obesity due to excess calories; F17.210 Nicotine dependence, cigarettes, uncomplicated; Z68.43 Body mass index [BMI] 50.0-59.9, adult; Z79.899 Other long term (current) drug therapy; Z79.891 Long term (current) use of opiate analgesic
CPT/HCPCS: 99284

== ENCOUNTER 2022-07-17 18:02 | Emergency (ER) | payer MEDICARE, MEDICAID ==
[~2022-07-17] VITALS: Ht 167.7 cm; Wt 136.5 kg
[~2022-07-17 18:02] MED LIST changes: +ACHD5005 PO; +ALBU8.5H6 IH; +CLIN-144 PO; -CLIN300C12 PO; +MELO10CA3 PO; +METH4TAB11 PO; +MONT-40 PO; -MONT10TA32 PO; +POTA-169 PO; -POTA20TA8 PO; -RT-ALBUINH IH; +TIZA-186 PO; -TIZA4TAB4 PO
--- NOTE | 2022-07-17 18:57 | ED Fall/Injury ---
General Chief Complaint: Trauma-Non Activation Stated Complaint: BACK PAIN, WRIST PAIN, KNEE PAIN Nursing Triage Note: PT AMB TO TRIAGE WITH COMPLAINT OF FALL. STATES FELL THIS MORNING AT HOME AROUND 3AM. COMPLAINING OF BACK, RIGHT KNEE, AND RIGHT WRIST PAIN. DENIES LOC. PT 87% ON RA. STATES NORMALLY WEARS OXYGEN, BUT CANNOT CARRY HER PORTABLE OXYGEN AROUND. Source: patient Exam Limitations: no limitations History of Present Illness Date Seen by Provider: Jul 17, 2022 Time Seen by Provider: 18:37 Initial Comments This 47 year old woman presents to the ER with injury to the back, neck, right knee and right wrist after falling early this morning. She believes she fell asleep in her chair. She got up to transition back to her bed when she fell forward. She landed on her hands and knees. She does not believe there was any blunt trauma to her head or neck. She does not believe there was any actual loss of consciousness. She was wearing nasal cannula O2 at the time. She has experienced headache throughout the day but denies any head tenderness or visual injury. She has been taking Midol and Tylenol without significant relief. Her last dose was around noon. Her current primary care provider is Ms. Briggs at [facility]. Patient reports feeling well at baseline prior to the fall. She denies any prodrome of chest pain, increased shortness of breath, lightheadedness, etc. patient described no neurologic deficits. Allergies and Home Medications Allergies Coded Allergies: erythromycin base (Verified Allergy, Unknown, PT CAN TAKE AZITHROMYCIN, 06/09/14) minocycline (Verified Adverse Reaction, Mild, N/V, 06/09/14) Patient Home Medication List Home Medication List Reviewed: Yes Albuterol Sulfate (Proair Hfa) 1 Puff Puff, 2 PUFF IH Q4H PRN for SHORTNESS OF BREATH Prescribed by: ANGIE DAIVS on 01/16/21 1207 Azithromycin (Azithromycin) 250 Mg Tablet, 250 MG PO DAILY Prescribed by: ROBERTO CARLOS JIMENEZ on 04/19/212131 Carvedilol (Carvedilol) 3.125 Mg Tablet, 3.125 MG PO BID, (Reported) Entered as Reported by: MONCHO ULRICH on 01/15/21 1422 Cefdinir (Cefdinir) 300 Mg Capsule, 300 MG PO BID Prescribed by: ROBERTO CARLOS JIMENEZ on 04/19/212131 Clonidine HCl (Clonidine HCl) 0.1 Mg Tablet, 0.1 MG PO BID PRN for ANXIETY, (Reported) Entered as Reported by: MONCHO ULRICH on 01/15/211421 Duloxetine HCl (Duloxetine HCl) 60 Mg Capsule.dr, 60 MG PO BID, (Reported) Entered as Reported by: MONCHO ULRICH on 01/15/211421 Gabapentin (Gabapentin) 600 Mg Tablet, 600 MG PO TID, (Reported) Entered as Reported by: ANGIE DAVIS on 01/15/21 1359 Hydrocodone/Acetaminophen (Hydrocodone-Acetamin 5-325 mg) 1 Each Tablet, 1-2 TAB PO Q6H PRN for PAIN-BREAKTHROUGH Prescribed by: DILCIA WILHELM on 07/05/21 112 Hydrocodone/Acetaminophen (Hydrocodone-Acetamin 5-325 mg) 1 Each Tablet, 1 TAB PO Q4H PRN for PAIN-MODERATE (5-7) Prescribed by: CYNTHIA PADRON on 12/29/212113 Meloxicam, Submicronized (Meloxicam) 10 Mg Capsule, 10 MG PO DAILY Prescribed by: CYNTHIA PADRON on 12/29/212121 Methylprednisolone (Methylprednisolone Dose Pack) 4 Mg Tablet, 4 MG PO UD Prescribed by: CYNTHIA PADRON on 12/29/212113 Montelukast Sodium (Montelukast Sodium) 10 Mg Tablet, 10 MG PO HS, (Reported) Entered as Reported by: MONCHO ULRICH on 01/15/211421 Omeprazole (Omeprazole) 20 Mg Capsule.dr, 20 MG PO HS, (Reported) Entered as Reported by: MONCHO ULRICH on 01/15/211421 Potassium Gluconate (Potassium Gluconate 595 MG) 99 Mg Tablet, 99 MG PO DAILY, (Reported) Entered as Reported by: MONCHO ULRICH on 01/15/211421 Prednisone (Prednisone) 20 Mg Tab, 40 MG PO DAILY Prescribed by: ANGIE DAVIS on 01/16/21 1207 Prednisone (Prednisone) 20 Mg Tab, 40 MG PO DAILY Prescribed by: DILCIA WILHELM on 07/05/21 112 Ropinirole HCl (Ropinirole HCl) 1 Mg Tablet, 1 MG PO TID, (Reported) Entered as Reported by: ANGIE DAVIS on 01/15/21 2618 Tizanidine HCl (Tizanidine HCl) 4 Mg Tablet, 4 MG PO TID, (Reported) Entered as Reported by: ANGIE DAVIS on 01/15/21 1359 Review of Systems Review of Systems Constitutional: no symptoms reported Eyes: No Symptoms Reported Ears, Nose, Mouth, Throat: no symptoms reported Respiratory: see HPI Cardiovascular: no symptoms reported Gastrointestinal: no symptoms reported Genitourinary: no symptoms reported Musculoskeletal: see HPI Skin: no symptoms reported Psychiatric/Neurological: See HPI Past Ovzldzq-Vvhtwb-Yszjif Hx Patient Social History Tobacco Use?: Yes Tobacco type used: Cigarettes Smoking Status: Current Everyday Smoker Substance use?: No Alcohol Use?: No Immunizations Up To Date Tetanus Booster (TDap): Less than 5yrs First/Initial COVID19 Vaccinat: December AND Second COVID19 Vaccination Justin: December AND Third COVID19 Vaccination Date: December Seasonal Allergies Seasonal Allergies: No Past Medical History Surgeries: Yes Appendectomy, Gallbladder, Orthopedic, Tonsillectomy Respiratory: Yes (sarcoidosis, uses oxygen via nasal cannula continuously) Sleep Apnea, COPD Currently Using CPAP: No Currently Using BIPAP: No Cardiac: Yes (CHF;PULMONARY HTN) Chronic Edema/Swelling, High Cholesterol, Hypertension Neurological: Yes Headaches /Migraines, Neuropathy Reproductive Disorders: No Female Reproductive Disorders: Menstrual Problems, Ovarian Cyst Sexually Transmitted Disease: No HIV/AIDS: No Genitourinary: Yes Renal Failure, UTI-Chronic Gastrointestinal: Yes (FATTY LIVER DISEASE) Gastroesophageal Reflux, Liver Disease/Jaundice, Gastrointestinal Bleed, Esophagitis, Hiatal Hernia Musculoskeletal: Yes ( RESTLESS LEG SYNDROME) Arthritis, Fibromyalgia, Chronic Back Pain Endocrine: Yes (MORBID OBESITY) Hypothyroidsim, Diabetes, Non-Insulin dep HEENT: Yes ("VOCAL CORD DYSFUNCTION" ) Dysphagia Cancer: No Psychosocial: Yes (NARCOTIC OVERDOSE 12/2012) Anxiety, Depression Integumentary: Yes (CHRONIC LEFT LEG CELLULITIS) Recent Skin Changes Blood Disorders: No Adverse Reaction/Blood Tranf: No Family Medical History Family history: Hypertension 09 SISTER (43 ) Family history: Thyroid disorder 03 MOTHER (41 ) Stroke 03 FATHER (47 ) Heart Disease, Hypertension Physical Exam Vital Signs Vital Signs - First Documented 07/17/22 18:06 Pulse 84 Resp 16 B/P (MAP) 131/84 (100) Pulse Ox 87 O2 Delivery Room Air Capillary Refill : Less Than 3 Seconds Height, Weight, BMI Height: 5'6.00" Weight: 310lbs. 8.0oz. 140.575156ss; 48.00 BMI Method:Stated General Appearance: WD/WN, no apparent distress, obese HEENT: normal ENT inspection Neck: normal inspection, tender lateral (Bilateral paraspinous muscle) Cardiovascular: regular rate, rhythm, no edema, no murmur Respiratory: no respiratory distress; No crackles, No rhonchi; wheezing Back: vertebral tenderness (From the mid thoracic spine down through the lower lumbar spine) Extremities: swelling (Lower extremity), other (Tenderness to the ulnar aspect of the right wrist with pain on range of motion. Tenderness to the anterior aspect of the right knee including the patella. 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, no motor/sensory deficits, alert, normal mood/affect, oriented x 3 Skin: normal color, warm/dry Giovanna Coma Score Best Eye Response: (4) Open Spontaneously Best Verbal Response: (5) Oriented Best Motor Response: (6) Obeys Commands [place]air Total: 15 Procedures/Interventions Suture Size: 5-0 Progress/Results/Core Measures Results/Orders My Orders Orders - DILCIA YEE MD Wrist, Right, 3 Views Or More (07/17/22 18:51) Knee, Right, 3 Views (07/17/22 18:51) Ct Thoracic/Lumbar Spine Wo (07/17/22 18:51) Ct Cervical Spine Wo (07/17/22 18:51) Hydrocodone/Apap 5/325 Tablet (Lortab 5 (07/17/22 19:00) Ketorolac Injection (Toradol Injection) (07/17/22 20:15) Medications Given in ED Current Medications Medications Dose Ordered Sig/Simon Route Start Time Stop Time Status Last Admin Dose Admin Acetaminophen/ Hydrocodone Bitart 1 ea ONCE ONCE PO 07/17/22 19:00 07/17/22 19:01 DC 07/17/22 19:00 1 EA Vital Signs/I&O 07/17/22 18:06 Pulse 84 Resp 16 B/P (MAP) 131/84 (100) Pulse Ox 87 O2 Delivery Room Air Blood Pressure Mean: 100 Progress Progress Note : Time: 19:09 Progress Note Hydrocodone is being given for pain. I discussed work-up with the patient which will include x-rays of the wrist and knee. We also discussed imaging of the spine. I believe in this instance x-rays will be of limited utility, and CT imaging would be much better for evaluating potential bony injuries of the spine. I discussed risks and benefits of CT with the patient. The nature of this injury without direct blunt trauma to the spine would lend itself more l ikely to compression fractures then other type of fractures. Since compression fractures could potentially be treated, patient wishes to proceed with imaging to explore possible vertebral injury. We discussed imaging of the head as well. Since there is no tenderness or visible injury to the head and she does not believe she struck her head, we are not pursuing CT of the head at this time. Diagnostic Imaging Diagonstic Imaging: CT Plain Films/CT/US/NM/MRI: c-spine Comments CT images of the cervical spine viewed by me and report reviewed. See report below: NAME: TUAN ORANTES [facility] REC#: [id number] PT STATUS: REG ER : 1975 PHYSICIAN: DILCIA YEE MD ADMIT DATE: 07/17/22/ER Draft Date of Exam:07/17/22 CT CERVICAL SPINE WO PROCEDURE: CT cervical spine without contrast. TECHNIQUE: Multiple contiguous axial images were obtained through the cervical spine without the use of intravenous contrast. Sagittal and coronal reformations were then performed. Auto Exposure Controls were utilized during the CT exam to meet ALARA standards for radiation dose reduction. INDICATION: Fall. Neck pain. FINDINGS: There is straightening of the cervical lordosis. There are normal relationships of the craniocervical junction. There are normal relationships of the lateral masses of C1 and C2. The facets are normally aligned. There is no facet joint or disc space widening. The vertebral body heights are maintained. There are no CT findings of an acute cervical spine fracture. There is no CT evidence to suggest high-grade cervical canal or foraminal stenosis. There appear to be some paraseptal blebs within the lung apices. Soft tissues of the neck demonstrate no acute process. IMPRESSION: 1. No CT findings of an acute cervical spine fracture or traumatic malalignment. There are no findings to suggest high-grade canal or foraminal stenosis. Dictated on workstation # [id number] Dict: 07/17/221918 Trans: 07/17/221928 [facility] [id number] Interpreted by: JAVIER MEJIA MD Diagonstic Imaging: CT Plain Films/CT/US/NM/MRI: other (Thoracic and lumbar spine) Comments CT thoracic and lumbar spine reviewed by me and report reviewed. See preliminary report below: NAME: TUAN ORANTES [facility] REC#: [id number] PT STATUS: REG ER : 1975 PHYSICIAN: DILCIA YEE MD ADMIT DATE: 07/17/22/ER Draft Date of Exam:07/17/22 CT THORACIC/LUMBAR SPINE WO PROCEDURE: CT thoracic and lumbar spine without contrast. TECHNIQUE: Multiple contiguous axial images were obtained through the thoracic and lumbar spine without the use of intravenous contrast. Sagittal and coronal reformations were then performed. All CT scans use one or more of the following dose optimizing techniques: automated exposure control, MA and/or KvP adjustment based on a patient size and exam type, or iterative reconstruction. INDICATION: Fall with back pain Thoracolumbar spinal curvature and alignment are unremarkable. There has been L4-L5 discectomy with posterior laminectomy and fusion. When compared to thoracic CT of 01/15/2021, there is redemonstration of extensive diffuse groundglass density throughout the lungs. This may be slightly worsened, may represent progressive pneumonitis or fibrosis. There does appear to be bilateral hilar and mediastinal adenopathy also similar to the previous study. There is no acute fracture or malalignment. No new lytic or sclerotic lesion is identified. There is no evidence of paraspinous hematoma. IMPRESSION: No CT evidence of acute thoracic or lumbar spinal abnormality. There is no evidence of complication at the site of L4-L5 fusion. There is diffuse groundglass density throughout the lungs with associated hilar and mediastinal adenopathy. These findings could be related to sarcoidosis or other chronic pulmonary disease and clinical correlation would be of use. Dictated on workstation # [id number] Dict: 07/17/221925 Trans: 07/17/221935 [facility] [phone] Interpreted by: ELIA OCONNOR MD Diagonstic Imaging: Xray Plain Films/CT/US/NM/MRI: knee Comments Right knee x-ray viewed by me and report reviewed. See preliminary report below: NAME: TUAN ORANTES [facility] REC#: [id number] PT STATUS: REG ER : 1975 PHYSICIAN: DILCIA YEE MD ADMIT DATE: 07/17/22/ER Draft Date of Exam:07/17/22 KNEE, RIGHT, 3 VIEWS INDICATION: Right knee pain AP, oblique and lateral views of the right knee are obtained. FINDINGS: There is mild early degenerative change in the medial compartment. No acute fracture or dislocation is identified. No abnormal lytic or sclerotic focus is seen, and there is no radiopaque foreign body. IMPRESSION: No acute abnormality. Dictated on workstation # [id number] Dict: 07/17/221931 Trans: 07/17/221935 [facility] [id number] Interpreted by: ELIA OCONNOR MD Diagonstic Imaging: Xray Plain Films/CT/US/NM/MRI: other (Right wrist) Comments Right wrist x-rays viewed by me and report reviewed. See preliminary report below: NAME: TUAN ORANTES [facility] REC#: [id number] PT STATUS: REG ER : 1975 PHYSICIAN: DILCIA YEE MD ADMIT DATE: 07/17/22/ER Draft Date of Exam:07/17/22 WRIST, RIGHT, 3 VIEWS OR MORE INDICATION: Right wrist pain. AP, oblique and lateral views of the right wrist are obtained with comparison made to study of 03/29/2018. FINDINGS: There is ulnar minus variation. No acute fracture or dislocation is identified. No abnormal lytic or sclerotic focus is seen, and there is no radiopaque foreign body. IMPRESSION: No acute abnormality. Dictated on workstation # [id number] Dict: 07/17/221931 Trans: 07/17/221935 [facility] [phone] Interpreted by: ELIA OCONNOR MD Departure Impression Primary Impression: Fall on same level Qualified Codes: W18.30XA - Fall on same level, unspecified, initial encounter Additional Impressions: Right wrist pain Right knee pain Qualified Codes: M25.561 - Pain in right knee Back pain Qualified Codes: M54.9 - Dorsalgia, unspecified Neck pain Disposition: 01 HOME, SELF-CARE Condition: Improved Departure-Patient Inst. Decision time for Depature: 19:44 Referrals: [facility] (PCP/Family) Primary Care Physician Patient Instructions: Contusion (DC), Wrist Sprain ED Add. Discharge Instructions: No significant injuries were identified on your imaging studies with x-rays and CT. Your pain is likely due to contusions (bruising) and/or sprains/strains. You may ice affected areas in 20-minute intervals to help reduce pain and swelling. You may take Tylenol (acetaminophen) up to 1000 mg every 6 hours as needed. Add ibuprofen sparingly up to 600 mg every 6 hours as needed for additional pain relief. You may additionally use your prescribed a muscle relaxer for tensor spasmed muscles. If you continue to have pain in the right wrist with movement or feeling need for stability to manage pain, you may use a simple wrist brace to help support the wrist temporarily. Follow-up with your primary care provider next week if you are not improving as expected. Return to the ER if you have worsening symptoms despite following these instructions. All discharge instructions reviewed with patient and/or family. Voiced understanding. Copy Copies To 1: [facility]/DILCIA UPTON MD Jul 17, 2022 18:57
[2022-07-17] MEDS ORDERED: HYDROcodone/APAP 5 MG/325 MG (LORTAB) TAB PO ONE (19:00)
--- NOTE | 2022-07-17 19:29 | Diagnostic Imaging Report ---
PROCEDURE: CT cervical spine without contrast. TECHNIQUE: Multiple contiguous axial images were obtained through the cervical spine without the use of intravenous contrast. Sagittal and coronal reformations were then performed. Auto Exposure Controls were utilized during the CT exam to meet ALARA standards for radiation dose reduction. INDICATION: Fall. Neck pain. FINDINGS: There is straightening of the cervical lordosis. There are normal relationships of the craniocervical junction. There are normal relationships of the lateral masses of C1 and C2. The facets are normally aligned. There is no facet joint or disc space widening. The vertebral body heights are maintained. There are no CT findings of an acute cervical spine fracture. There is no CT evidence to suggest high-grade cervical canal or foraminal stenosis. There appear to be some paraseptal blebs within the lung apices. Soft tissues of the neck demonstrate no acute process. IMPRESSION: 1. No CT findings of an acute cervical spine fracture or traumatic malalignment. There are no findings to suggest high-grade canal or foraminal stenosis. Dictated by: Dictated on workstation # [id number]
--- NOTE | 2022-07-17 19:36 | Diagnostic Imaging Report ---
INDICATION: Right knee pain AP, oblique and lateral views of the right knee are obtained. FINDINGS: There is mild early degenerative change in the medial compartment. No acute fracture or dislocation is identified. No abnormal lytic or sclerotic focus is seen, and there is no radiopaque foreign body. IMPRESSION: No acute abnormality. Dictated by: Dictated on workstation # [id number]
--- NOTE | 2022-07-17 19:36 | Diagnostic Imaging Report ---
PROCEDURE: CT thoracic and lumbar spine without contrast. TECHNIQUE: Multiple contiguous axial images were obtained through the thoracic and lumbar spine without the use of intravenous contrast. Sagittal and coronal reformations were then performed. All CT scans use one or more of the following dose optimizing techniques: automated exposure control, MA and/or KvP adjustment based on a patient size and exam type, or iterative reconstruction. INDICATION: Fall with back pain Thoracolumbar spinal curvature and alignment are unremarkable. There has been L4-L5 discectomy with posterior laminectomy and fusion. When compared to thoracic CT of 01/15/2021, there is redemonstration of extensive diffuse groundglass density throughout the lungs. This may be slightly worsened, may represent progressive pneumonitis or fibrosis. There does appear to be bilateral hilar and mediastinal adenopathy also similar to the previous study. There is no acute fracture or malalignment. No new lytic or sclerotic lesion is identified. There is no evidence of paraspinous hematoma. IMPRESSION: No CT evidence of acute thoracic or lumbar spinal abnormality. There is no evidence of complication at the site of L4-L5 fusion. There is diffuse groundglass density throughout the lungs with associated hilar and mediastinal adenopathy. These findings could be related to sarcoidosis or other chronic pulmonary disease and clinical correlation would be of use. Dictated by: Dictated on workstation # [id number]
--- NOTE | 2022-07-17 19:37 | Diagnostic Imaging Report ---
INDICATION: Right wrist pain. AP, oblique and lateral views of the right wrist are obtained with comparison made to study of 03/29/2018. FINDINGS: There is ulnar minus variation. No acute fracture or dislocation is identified. No abnormal lytic or sclerotic focus is seen, and there is no radiopaque foreign body. IMPRESSION: No acute abnormality. Dictated by: Dictated on workstation # [id number]
[2022-07-17 20:10] VITALS: BP 127/83
[2022-07-17] MEDS ORDERED: KETOROLAC 30 MG/ML VIAL IM ONE (20:15)
== END 2022-07-17 20:24 | disposition home or self-care (01) ==
LOC: EDUNIT# 18:02 → ER 18:04
DX: M25.531 Pain in right wrist (principal); M25.561 Pain in right knee; M54.6 Pain in thoracic spine; M54.50 Low back pain, unspecified; M54.2 Cervicalgia; F17.210 Nicotine dependence, cigarettes, uncomplicated; E66.01 Morbid (severe) obesity due to excess calories; Z68.42 Body mass index [BMI] 45.0-49.9, adult; W18.30XA Fall on same level, unspecified, initial encounter
CPT/HCPCS: 72125; 72128; 72131; 73110; 73562; 96372

== ENCOUNTER 2022-07-31 08:55 | Outpatient (CLI) | payer MEDICARE, MEDICAID ==
[~2022-07-31] VITALS: Ht 167.6 cm; Wt 132.5 kg
[2022-07-31] MEDS ORDERED: TIZA-186 PO (10:29)
[2022-07-31] MEDS ORDERED: LEVO50TA6 PO (10:29)
[2022-07-31] MEDS ORDERED: MELO7.5T46 PO (10:29)
[2022-07-31] MEDS ORDERED: ALBU18HF2 IH (10:30)
== END 2022-07-31 10:42 | disposition home or self-care (01) ==
LOC: PREOP 08:55
PROVIDERS: ATTEND Surgery
DX: Z01.818 Encounter for other preprocedural examination (principal)

== ENCOUNTER 2022-08-03 14:47 | Emergency (ER) | payer MEDICARE, MEDICAID ==
[~2022-08-03] VITALS: Ht 167 cm; Wt 131.0 kg
[~2022-08-03 14:47] MED LIST changes: +ALBU18HF2 IH; +LEVO50TA6 PO; +MELO7.5T46 PO
--- NOTE | 2022-08-03 15:03 | ED Respiratory ---
General Chief Complaint: Respiratory Problems Stated Complaint: COVID +/SOA Nursing Triage Note: ARRIVED VIA WC FROM HOME. STATES SHE TESTED POSITIVE FOR COVID VIA HOME TEST. COUGH, FEVER, SORETHROAT. Source: patient Exam Limitations: no limitations History of Present Illness Date Seen by Provider: Aug 03, 2022 Time Seen by Provider: 14:49 Initial Comments 47-year-old female presents emergency department today for COVID-19. She took a home test yesterday but it was reportedly positive. She went to the [facility] clinic today and was found to have an oxygen level in the low 80s and sent here for further evaluation. On further questioning she has a history of COPD, CHF and sarcoidosis. She is on 2 L of oxygen via nasal cannula chronically at home. She did not bring it with her today and they tested her at the clinic without this. On arrival here on room air she is 92 to 96%. Her heart rate is normal. She states she has had a headache, fevers body aches and chills. No known sick contacts Allergies and Home Medications Allergies Coded Allergies: erythromycin base (Verified Allergy, Unknown, PT CAN TAKE AZITHROMYCIN, 06/09/14) minocycline (Verified Adverse Reaction, Mild, N/V, 06/09/14) Patient Home Medication List Home Medication List Reviewed: Yes Albuterol Sulfate (Ventolin Hfa) 90 Mcg Hfa.aer.ad, 2 PUFF IH Q4H PRN for WHEEZING, (Reported) Entered as Reported by: COURTNEY HARDIN on 07/31/22 1030 Carvedilol (Carvedilol) 3.125 Mg Tablet, 3.125 MG PO BID, (Reported) Entered as Reported by: MONCHO ULRICH on 01/15/21 1422 Clonidine HCl (Clonidine HCl) 0.1 Mg Tablet, 0.1 MG PO BID PRN for ANXIETY, (Reported) Entered as Reported by: MONCHO ULRICH on 01/15/21 1422 Gabapentin (Gabapentin) 600 Mg Tablet, 600 MG PO BID, (Reported) Entered as Reported by: ANGIE DAVIS on 01/15/21 1359 Levothyroxine Sodium (Levothyroxine Sodium) 50 Mcg Tablet, 50 MCG PO DAILY, (Reported) Entered as Reported by: COURTNEY HARDIN on 07/31/22 1029 Meloxicam (Meloxicam) 7.5 Mg Tablet, 7.5 MG PO DAILY, (Reported) Entered as Reported by: COURTNEY HARDIN on 07/31/22 1029 Montelukast Sodium (Montelukast Sodium) 10 Mg Tablet, 10 MG PO HS, (Reported) Entered as Reported by: MONCHO ULRICH on 01/15/21 1422 Omeprazole (Omeprazole) 20 Mg Capsule.dr, 20 MG PO HS, (Reported) Entered as Reported by: MONCHO ULRICH on 01/15/21 1422 Tizanidine HCl (Tizanidine HCl) 4 Mg Tablet, 4 MG PO TID, (Reported) Entered as Reported by: COURTNEY HARDIN on 07/31/22 1029 Discontinued Medications Albuterol Sulfate (Ventolin Hfa) 1 Puff Puff, 2 PUFF IH Q4H PRN for SHORTNESS OF BREATH Discontinued Reason: No Longer Taking Prescribed by: ANGIE DAVIS on 01/16/21 1207 Azithromycin (Azithromycin) 250 Mg Tablet, 250 MG PO DAILY Discontinued Reason: No Longer Taking Prescribed by: ROBERTO CARLOS JIMENEZ on 04/19/212131 Cefdinir (Cefdinir) 300 Mg Capsule, 300 MG PO BID Discontinued Reason: No Longer Taking Prescribed by: ROBERTO CARLOS JIMENEZ on 04/19/212131 Duloxetine HCl (Duloxetine HCl) 60 Mg Capsule.dr, 60 MG PO BID, (Reported) Discontinued Reason: No Longer Taking Entered as Reported by: MONCHO ULRICH on 01/15/21 1422 Hydrocodone/Acetaminophen (Hydrocodone-Acetamin 5-325 mg) 1 Each Tablet, 1-2 TAB PO Q6H PRN for PAIN-BREAKTHROUGH Discontinued Reason: No Longer Taking Prescribed by: DILCIA WILHELM on 07/05/21 1123 Hydrocodone/Acetaminophen (Hydrocodone-Acetamin 5-325 mg) 1 Each Tablet, 1 TAB PO Q4H PRN for PAIN-MODERATE (5-7) Discontinued Reason: No Longer Taking Prescribed by: CYNTHIA PADRON on 12/29/212113 Meloxicam, Submicronized (Meloxicam) 10 Mg Capsule, 10 MG PO DAILY Discontinued Reason: No Longer Taking Prescribed by: CYNTHIA PADRON on 12/29/212121 Methylprednisolone (Methylprednisolone Dose Pack) 4 Mg Tablet, 4 MG PO UD Discontinued Reason: No Longer Taking Prescribed by: CYNTHIA PADRON on 12/29/212113 Potassium Gluconate (Potassium Gluconate 595 MG) 99 Mg Tablet, 99 MG PO DAILY, (Reported) Discontinued Reason: No Longer Taking Entered as Reported by: MONCHO ULRICH on 01/15/21 1422 Prednisone (Prednisone) 20 Mg Tab, 40 MG PO DAILY Discontinued Reason: No Longer Taking Prescribed by: ANGIE DAVIS on 01/16/21 1207 Prednisone (Prednisone) 20 Mg Tab, 40 MG PO DAILY Discontinued Reason: No Longer Taking Prescribed by: DILCIA WILHELM on 07/05/21 1128 Ropinirole HCl (Ropinirole HCl) 1 Mg Tablet, 1 MG PO TID, (Reported) Discontinued Reason: No Longer Taking Entered as Reported by: ANGIE DAVIS on 01/15/21 1359 Tizanidine HCl (Tizanidine HCl) 4 Mg Tablet, 4 MG PO TID, (Reported) Discontinued Reason: No Longer Taking Entered as Reported by: ANGIE DAVIS on 01/15/21 1359 Review of Systems Review of Systems Constitutional: chills, fever, malaise EENTM: nose congestion, throat pain Respiratory: cough, short of breath Cardiovascular: no symptoms reported Gastrointestinal: no symptoms reported Genitourinary: no symptoms reported Musculoskeletal: other Skin: no symptoms reported Psychiatric/Neurological: Headache Hematologic/Lymphatic: No Symptoms Reported Immunological/Allergic: no symptoms reported Past Opghcre-Bbwpye-Bgezfk Hx Patient Social History Tobacco Use?: Yes Smoking Status: Current Everyday Smoker Substance use?: No Alcohol Use?: No Immunizations Up To Date Tetanus Booster (TDap): Less than 5yrs First/Initial COVID19 Vaccinat: December AND Second COVID19 Vaccination Justin: December Third COVID19 Vaccination Date: December COVID19 Vaccine Cut Out Operator: VANE Seasonal Allergies Seasonal Allergies: No Past Medical History Surgeries: Yes (BACK SX, R knee scope, L vocal cord sx, mediastinoscopy) Appendectomy, Gallbladder, Orthopedic, Tonsillectomy Respiratory: Yes (sarcoidosis, uses oxygen via nasal cannula continuously) Sleep Apnea, COPD Currently Using CPAP: No Currently Using BIPAP: No Cardiac: Yes (CHF;PULMONARY HTN) Chronic Edema/Swelling, High Cholesterol, Hypertension Neurological: Yes Headaches /Migraines, Neuropathy Reproductive Disorders: No Female Reproductive Disorders: Menstrual Problems, Ovarian Cyst Sexually Transmitted Disease: No HIV/AIDS: No Genitourinary: Yes Renal Failure, UTI-Chronic Gastrointestinal: Yes (FATTY LIVER DISEASE) Gastroesophageal Reflux, Liver Disease/Jaundice, Gastrointestinal Bleed, Esophagitis, Hiatal Hernia Musculoskeletal: Yes ( RESTLESS LEG SYNDROME) Arthritis, Fibromyalgia, Chronic Back Pain Endocrine: Yes (MORBID OBESITY) Hypothyroidsim, Diabetes, Non-Insulin dep HEENT: Yes ("VOCAL CORD DYSFUNCTION" ) Dysphagia Cancer: No Psychosocial: Yes (NARCOTIC OVERDOSE 12/2012) Anxiety, Depression Integumentary: Yes (CHRONIC LEFT LEG CELLULITIS) Recent Skin Changes Blood Disorders: No Adverse Reaction/Blood Tranf: No Family Medical History Reviewed Nursing Family Hx Family history: Hypertension 09 SISTER (43 ) Family history: Thyroid disorder 03 MOTHER (41 ) Stroke 03 FATHER (47 ) Heart Disease, Hypertension Physical Exam Vital Signs - First Documented 08/03/22 14:49 Temp 36.7 Pulse 87 Resp 16 B/P (MAP) 118/87 (97) Pulse Ox 92 O2 Delivery Room Air Capillary Refill : Less Than 3 Seconds Height: 5'6.00" Weight: 310lbs. 8.0oz. 140.562314ct; 46.00 BMI Method:Stated General Appearance: WD/WN, no apparent distress HEENT: PERRL/EOMI, normal ENT inspection, TMs normal, pharynx normal Neck: non-tender, full range of motion, supple, normal inspection Respiratory: chest non-tender, lungs clear, normal breath sounds, no respiratory distress, no accessory muscle use Cardiovascular: regular rate, rhythm, no edema, no gallop, no JVD, no murmur Gastrointestinal: normal bowel sounds, non tender, soft, no organomegaly, no pulsatile mass Extremities: normal range of motion, non-tender, normal inspection, no pedal edema, no calf tenderness, normal capillary refill Neurologic/Psychiatric: alert, normal mood/affect, oriented x 3 Skin: normal color, warm/dry Lymphatic: no adenopathy Procedures/Interventions Suture Size: 5-0 Progress/Results/Core Measures Suspected Sepsis SIRS Temperature: Pulse: 87 Respiratory Rate: 16 Blood Pressure 118 /87 Mean: 97 Results/Orders Vital Signs/I&O 08/03/22 14:49 Temp 36.7 Pulse 87 Resp 16 B/P (MAP) 118/87 (97) Pulse Ox 92 O2 Delivery Room Air Capillary Refill : Less Than 3 Seconds Blood Pressure Mean: 97 Departure Communication (Admissions) Patient is hemodynamically stable in no respiratory distress. She has oxygen saturation 92 to 96% on room air here however she does use oxygen [id number]-nlo-exfcm at home. The patient states her oxygen was checked on room air at the clinic, likely after she had walked from inside and was winded. I do believe her oxygen was low at that time however this was not checked at her baseline on her 2 L via nasal cannula. At present she is in no respiratory distress with no tachycardia. She is having no chest pain. She is at high risk. However there is no indication for admission to the hospital at this time. we will go ahead and give her Paxlovid and prednisone. She has inhalers at home which she will continue to use. Given strict return precautions and discharged in stable condition peer Impression Primary Impression: COVID-19 Disposition: 01 HOME, SELF-CARE Condition: Stable Departure-Patient Inst. Referrals: [facility] (PCP/Family) Primary Care Physician Patient Instructions: COVID-19 (DC) Add. Discharge Instructions: Please use your inhaler at home as needed. Take the steroid medication as prescribed. Take the Paxlovid pills until they are gone. The Paxlovid will not help with your symptoms but discontinued the steroids hospitalization. Use your oxygen at home, you may titrate this up to 4 L via nasal cannula. If her oxygen levels are not staying above 88% with 4 L then you need to come back to the emergency department for further evaluation and possible admission to the hospital. Return to the emergency department for any severe concerns. Follow- up with your primary doctor in the next 48 to 72 hours for recheck. All discharge instructions reviewed with patient and/or family. Voiced understanding. Scripts Prednisone (Prednisone) 50 Mg Tab 50 MG PO DAILY for 5 Days, #5 TAB Prov: LENORA GALINDO Merritt DO 08/03/22 Nirmatrelvir/Ritonavir (Paxlovid 300-100 mg Pack (Eua)) 300 Mg (150 Mg X 2)-100 Mg Tab.ds.pk 1 EACH PO BID for 5 Days, #1 PKG Prov: LENORA GALINDO DO 08/03/22 LENORA GALINDO DO Aug 03, 2022 15:03
[2022-08-03] MEDS ORDERED: PRD50T PO (15:04)
[2022-08-03] MEDS ORDERED: NIRM1TAB PO (15:04)
[2022-08-03 15:12] VITALS: BP 118/87
== END 2022-08-03 15:12 | disposition home or self-care (01) ==
LOC: EDUNIT# 14:47 → ER 14:48
DX: U07.1 COVID-19 (principal); E66.01 Morbid (severe) obesity due to excess calories; F17.200 Nicotine dependence, unspecified, uncomplicated; Z68.42 Body mass index [BMI] 45.0-49.9, adult
CPT/HCPCS: 99282

== ENCOUNTER → 2022-09-18 | Outpatient (CLI) | payer MEDICARE, MEDICAID ==
[~2022-09-18] VITALS: Ht 167.7 cm; Wt 134.0 kg
[~2022-09-18] MED LIST changes: +NIRM1TAB PO; +PRD50T PO
== END ==
LOC: PREOP 08:25
PROVIDERS: ATTEND Surgery
DX: Z01.818 Encounter for other preprocedural examination (principal); Z12.11 Encounter for screening for malignant neoplasm of colon

== ENCOUNTER 2022-09-25 23:21 | Inpatient (IN) | payer MEDICARE, MEDICAID ==
[~2022-09-25] VITALS: Ht 167.7 cm; Wt 132.6 kg
[~2022-09-25 23:21] MED LIST changes: -KETAMINE 50 MG/5 ML SYRINGE ONE; -LACTATED RINGERS 1,000 ML IV STA; -LIDOCAINE JELLY 2% 6 ML SYRINGE MM PRN; -MIDAZOLAM 2 MG/2 ML (VERSED) VIAL ONE; -ONDANSETRON 4 MG (ZOFRAN) ORAL DISSOLVE TAB PO PRN; -ONDANSETRON 4 MG/2 ML (SDV) Z0FRAN IVP PRN; -proPOfol 200 MG/20 ML (DIPRIVAN) VIAL IV ONE
--- NOTE | 2022-09-25 23:38 | ED GI ---
General Stated Complaint: COLONOSCOPY 09.25.22, BRIGHT RED BLOOD W/BOWEL MOV Source of Information: Patient History of Present Illness Date Seen by Provider: Sep 25, 2022 Time Seen by Provider: 23:29 Initial Comments PT ARRIVES VIA POV FROM HOME PT HAD COLONOSCOPY TODAY AND HAD [address] ELIZABETH SHE HAS BEEN HAVING INTERMITTENT LOWER ABDOMINAL CRAMPING SINCE THE PROCEDURE TONIGHT AROUND 2244, SHE HAD DIARRHEA AND HAD BRIGHT RED BLOOD MIXED WITH STOOL AND BLOOD ON TISSUE WITH WIPING, SO CAME HERE SHE LATER STATES THAT SHE HAS HAD 4 STOOLS SINCE THE PROCEDURE--THE FIRST 2 WERE NORMAL, THE LAST 2 WERE BLOODY NO FEVER NO DIZZINESS NO NAUSEA/VOMITING PT IS NOT ON ASPIRIN OR BLOOD THINNERS PT HAS HAD RAE & RAE COVID VACCINE X 2, SHE HAD COVID IN JULY 2022--[place] WITH PAXLOVID. SHE HAS NOT HAD FLU VACCINE SHE IS O2 DEPENDENT. Allergies and Home Medications Allergies Coded Allergies: erythromycin base (Verified Allergy, Unknown, PT CAN TAKE AZITHROMYCIN, 06/09/14) minocycline (Verified Adverse Reaction, Mild, N/V, 06/09/14) Patient Home Medication List Home Medication List Reviewed: Yes Albuterol Sulfate (Ventolin Hfa) 90 Mcg Hfa.aer.ad, 2 PUFF IH Q4H PRN for WHEEZING, (Reported) Entered as Reported by: COURTNEY HARDIN on 07/31/22 1030 Carvedilol (Carvedilol) 3.125 Mg Tablet, 3.125 MG PO BID, (Reported) Entered as Reported by: MONCHO ULRICH on 01/15/21 1422 Clonidine HCl (Clonidine HCl) 0.1 Mg Tablet, 0.1 MG PO BID PRN for ANXIETY, (Reported) Entered as Reported by: MONCHO ULRICH on 01/15/21 1422 Gabapentin (Gabapentin) 600 Mg Tablet, 600 MG PO BID, (Reported) Entered as Reported by: ANGIE DAVIS on 01/15/21 1359 Levothyroxine Sodium (Levothyroxine Sodium) 50 Mcg Tablet, 50 MCG PO DAILY, (Reported) Entered as Reported by: COURTNEY HARDIN on 07/31/22 1029 Meloxicam (Meloxicam) 7.5 Mg Tablet, 7.5 MG PO DAILY, (Reported) Entered as Reported by: COURTNEY HARDIN on 07/31/22 1029 Montelukast Sodium (Montelukast Sodium) 10 Mg Tablet, 10 MG PO HS, (Reported) Entered as Reported by: MONCHO ULRICH on 01/15/21 1422 Nirmatrelvir/Ritonavir (Paxlovid 300-100 mg Pack (Eua)) 300 Mg (150 Mg X 2)-100 Mg Tab.ds.pk, 1 EACH PO BID Prescribed by: LENORA GALINDO MD on 08/03/22 1504 Omeprazole (Omeprazole) 20 Mg Capsule.dr, 20 MG PO HS, (Reported) Entered as Reported by: MONCHO ULRICH on 01/15/21 1422 Tizanidine HCl (Tizanidine HCl) 4 Mg Tablet, 4 MG PO TID, (Reported) Entered as Reported by: COURTNEY HARDIN on 07/31/22 1029 Review of Systems Review of Systems Constitutional: no symptoms reported Respiratory: No Symptoms Reported Cardiovascular: No Symptoms Reported Gastrointestinal: See HPI Genitourinary: No Symptoms Reported Musculoskeletal: no symptoms reported Skin: no symptoms reported Hematologic/Lymphatic: See HPI Past [id number] Hx Patient Social History Tobacco Use?: Yes Tobacco type used: Cigarettes Smoking Status: Current Everyday Smoker Immunizations Up To Date Tetanus Booster (TDap): Less than 5yrs First/Initial COVID19 Vaccinat: Second COVID19 Vaccination Justin: Third COVID19 Vaccination Date: Seasonal Allergies Seasonal Allergies: No Past Medical History Surgeries: Yes (BACK SX;R knee scope;L vocal cord sx;mediastinoscopy;COLONOSCOPY/POLYPECTOM) Appendectomy, Gallbladder, Orthopedic, Tonsillectomy Respiratory: Yes (sarcoidosis, uses oxygen via nasal cannula continuously) Sleep Apnea, COPD Currently Using CPAP: No Currently Using BIPAP: No Cardiac: Yes (CHF;PULMONARY HTN) Chronic Edema/Swelling, High Cholesterol, Hypertension Neurological: Yes Headaches /Migraines, Neuropathy Reproductive Disorders: No Female Reproductive Disorders: Menstrual Problems, Ovarian Cyst Sexually Transmitted Disease: No HIV/AIDS: No Genitourinary: Yes Renal Failure, UTI-Chronic Gastrointestinal: Yes (FATTY LIVER DISEASE) Gastroesophageal Reflux, Liver Disease/Jaundice, Gastrointestinal Bleed, Polyps, Esophagitis, Hiatal Hernia Musculoskeletal: Yes ( RESTLESS LEG SYNDROME) Arthritis, Fibromyalgia, Chronic Back Pain Endocrine: Yes (MORBID OBESITY) Hypothyroidsim, Diabetes, Non-Insulin dep HEENT: Yes ("VOCAL CORD DYSFUNCTION" ) Dysphagia Cancer: No Psychosocial: Yes (NARCOTIC OVERDOSE 12/2012) Anxiety, Depression Integumentary: Yes (CHRONIC LEFT LEG CELLULITIS) Recent Skin Changes Blood Disorders: No Adverse Reaction/Blood Tranf: No Family Medical History Family history: Hypertension 09 SISTER (43 ) Family history: Thyroid disorder 03 MOTHER (41 ) Stroke 03 FATHER (47 ) Heart Disease, Hypertension SOCIAL HISTORY: -SMOKES 2 PPD -DENIES ETOH -DENIES DRUG USE 09/25/22--COLONOSOCPY + POLYPECTOMY BY DR. ELIZABETH Pre-Operative Diagnosis screening colo Post-Operative Diagnosis chronic stage 2 ext and int hemorrhoids, pedunculated polyp proximal(5mm) and distal(2mm)colon Procedure & Operative Findings Date of Procedure 09/25/22 Procedure Performed/Findings colonoscopy with bx and snare polypectomy Physical Exam Vital Signs Vital Signs - First Documented 09/25/22 23:27 Temp 35.9 Pulse 82 Resp 22 B/P (MAP) 107/68 (81) Pulse Ox 95 O2 Delivery Room Air O2 Flow Rate 2.00 Capillary Refill : Height/Weight/BMI Height: 5'6.00" Weight: 310lbs. 8.0oz. 140.214792eq; 47.47 BMI Method:Stated General Appearance: WD/WN, no apparent distress, obese (MORBIDLY OBESE), other (TALKS IN WHISPER, SITTING -STYLE. DOES NOT APPEAR TO BE IN ANY DISCOMFORT OR DISTRESS. PT REEKS OF CIGARETTES, AND CLOTHING HAS MULTIPLE CIGARETTE BURN HOLES, ) HEENT: No scleral icterus (R), No scleral icterus (L), No pale conjunctivae (R), No pale conjunctivae (L) Neck: normal inspection Respiratory: normal breath sounds, no respiratory distress, no accessory muscle use Cardiovascular: regular rate, rhythm, no murmur Gastrointestinal: soft, tenderness (MILD DIFFUSE LOWER ABDOMINAL TENDERNESS), hernia (VENTRAL HERNIA ABOVE UMBILICUS. PARTIALLY REDUCIBLE. MILDLY TENDER--PT STATES IS NORMAL. ) Extremities: normal inspection, normal capillary refill Back: no CVA tenderness Neurologic/Psychiatric: no motor/sensory deficits, alert, normal mood/affect, oriented x 3 Skin: normal color, warm/dry Procedures/Interventions Suture Size: 5-0 Progress/Results/Core Measures Results/Orders Lab Results Laboratory Tests Test 09/25/22 23:36 Range/Units White Blood Count 19.2 H 4.3-11.0 10^3/uL Red Blood Count 4.95 3.80-5.11 10^6/uL Hemoglobin 12.4 11.5-16.0 g/dL Hematocrit 42 35-52 % Mean Corpuscular Volume 84 80-99 fL Mean Corpuscular Hemoglobin 25 25-34 pg Mean Corpuscular Hemoglobin Concent 30 L 32-36 g/dL Red Cell Distribution Width 18.2 H 10.0-14.5 % Platelet Count 389 130-400 10^3/uL Mean Platelet Volume 9.7 9.0-12.2 fL Immature Granulocyte % (Auto) 1 % Neutrophils (%) (Auto) 80 H 42-75 % Lymphocytes (%) (Auto) 12 12-44 % Monocytes (%) (Auto) 5 0-12 % Eosinophils (%) (Auto) 2 0-10 % Basophils (%) (Auto) 0 0-10 % Neutrophils # (Auto) 15.4 H 1.8-7.8 10^3/uL Lymphocytes # (Auto) 2.4 1.0-4.0 10^3/uL Monocytes # (Auto) 1.0 0.0-1.0 10^3/uL Eosinophils # (Auto) 0.3 0.0-0.3 10^3/uL Basophils # (Auto) 0.1 0.0-0.1 10^3/uL Immature Granulocyte # (Auto) 0.1 0.0-0.1 10^3/uL Neutrophils % (Manual) 77 % Lymphocytes % (Manual) 11 % Monocytes % (Manual) 8 % Eosinophils % (Manual) 0 % Basophils % (Manual) 0 % Band Neutrophils 0 % Reactive Lymphocytes 4 % Polychromasia SLIGHT Anisocytosis SLIGHT Prothrombin Time 12.8 12.2-14.7 SEC INR Comment 0.9 0.8-1.4 Activated Partial Thromboplast Time 32 24-35 SEC Sodium Level 138 135-145 MMOL/L Potassium Level 3.9 3.6-5.0 MMOL/L Chloride Level 102 98-107 MMOL/L Carbon Dioxide Level 25 21-32 MMOL/L Anion Gap 11 5-14 MMOL/L Blood Urea Nitrogen 16 7-18 MG/DL Creatinine 0.84 0.60-1.30 MG/DL Estimat Glomerular Filtration Rate 87 BUN/Creatinine Ratio 19 Glucose Level 111 H 70-105 MG/DL Calcium Level 9.4 8.5-10.1 MG/DL Corrected Calcium 9.5 8.5-10.1 MG/DL Total Bilirubin 0.2 0.1-1.0 MG/DL Aspartate Amino Transf (AST/SGOT) 13 5-34 U/L Alanine Aminotransferase (ALT/SGPT) 9 0-55 U/L Alkaline Phosphatase 155 H 40-136 U/L Total Protein 7.2 6.4-8.2 GM/DL Albumin 3.9 3.2-4.5 GM/DL Amylase Level 45 25-125 U/L Lipase 45 8-78 U/L My Orders Orders - CHRISTY MAR DO Ed Iv/Invasive Line Start (09/25/22 23:32) Monitor-Rhythm Ecg Trace Only (09/25/22 23:32) Ct Abdomen/Pelvis W (09/25/22 23:32) Amylase (09/25/22 23:32) Cbc With Automated Diff (09/25/22 23:32) Comprehensive Metabolic Panel (09/25/22 23:32) Lipase (09/25/22 23:32) Protime With Inr (09/25/22 23:32) Partial Thromboplastin Time (09/25/22 23:32) Manual Differential (09/25/22 23:36) Iohexol Injection (Omnipaque 350 Mg/Ml 1 (09/25/22 23:45) Sodium Chloride Flush (Catheter Flush Sy (09/25/22 23:45) Ns (Ivpb) (Sodium Chloride 0.9% Ivpb Bag (09/25/22 23:45) Ed Iv/Invasive Line Start (09/26/22 00:59) Ns Iv 1000 Ml (Sodium Chloride 0.9%) (09/26/22 01:00) Medications Given in ED Current Medications Medications Dose Ordered Sig/Simon Route Start Time Stop Time Status Last Admin Dose Admin Iohexol 100 ml ONCE ONCE IV 09/25/22 23:45 09/25/22 23:46 DC 09/25/22 23:56 100 ML Sodium Chloride 10 ml NEEDED PRN IV 09/25/22 23:45 09/25/22 23:56 10 ML Sodium Chloride 100 ml ONCE ONCE IV 09/25/22 23:45 09/25/22 23:46 DC 09/25/22 23:56 80 ML Vital Signs/I&O 09/25/22 23:27 Temp 35.9 Pulse 82 Resp 22 B/P (MAP) 107/68 (81) Pulse Ox 95 O2 Delivery Room Air O2 Flow Rate 2.00 Progress Progress Note : Progress Note BP 107 SYSTOLIC ON ARRIVAL DID DROP TO THE 90'S SYSTOLIC, BUT NO TACHYCARDIA. NO DIZZINESS. GIVEN IV FLUIDS AND BP UP TO 110'S SYSTOLIC BP 106 SYSTOLIC AT TIME OF ADMIT. NO TACHYCARDIA AT ANY TIME. 0053--PT JUST PASSED A LARGE AMOUNT OF PURE BLOOD IN TOILET, NO OBVIOUS STOOL NOTED. 0140--PT PASSED A LARGE AMOUNT OF PURE BLOOD IN TOILET, AGAIN. NO STOOL NOTED, ONLY BLOOD. INITIAL CBC WITH HGB 12.4, REPEAT HGB 10.9 WILL ORDER REPEAT HGB/HCT EVERY 2 HOURS REVIEWED COLONOSCOPY REPORT FROM [facility] TODAY. ALSO REVIEWED OLD CHARTS, H&P'S, CONSULTS, PROCEDURES AND DISCHARGE SUMMARIES. DISCUSSED LAB AND CT FINDINGS WITH PT, WITH EVIDENCE OF ACTIVE HEMORRHAGE IN CECUM. ALSO DISCUSSED ABNORMAL LESIONS NOTED ON LIVER, AND DISCUSSED THE IMPORTANCE OF FOLLOW UP FOR THIS BY DR. ELIZABETH AND/OR HER PCP Diagnostic Imaging Comments CT ABDOMEN/PELVIS--PER [facility] VIA FAX AT 0107 -FLUID IN THE COLON AND SUSPECTED BLUSH OF CONTRAST IN CECUM, INDICATING ACTIVE HEMORRHAGE. -2 INDETERMINATE ROUNDED CYSTIC LIVER LESIONS, LARGEST MEASURING 1.5 CM, POSSIBLE METASTASES IN CONTEXT OF KNOWN COLON POLYPS. Reviewed: Reviewed by Al Departure Communication (Admissions) 0107--SPOKE WITH DR. ELIZABETH. ADVISES TO ADMIT PT. Impression Primary Impression: Status post colonoscopy with polypectomy Additional Impressions: Colonoscopy causing post-procedural bleeding Acute lower GI bleeding COPD (chronic obstructive pulmonary disease) ACTIVE SMOKER Oxygen dependent Leukocytosis ABNORMAL LIVER FINDINGS ON CT SCAN HTN (hypertension) NIDDM Disposition: ADMITTED INPATIENT Condition: Stable Admissions Decision to Admit Reason: Admit from ER (General) Decision to Admit/Date: Sep 26, 2022 Time/Decision to Admit Time: 01:10 Departure-Patient Inst. Referrals: [facility] (PCP/Family) Primary Care Physician CHRISTY MAR DO Sep 25, 2022 23:38
[2022-09-25 23:43] LABS: BASOPHILS # (AUTO) 0.1 10^3/uL (0.0-0.1); BASOPHILS % (AUTO) 0 % (0-10); EOSINOPHILS # (AUTO) 0.3 10^3/uL (0.0-0.3); EOSINOPHILS % (AUTO) 2 % (0-10); HEMATOCRIT 42 % (35-52); HEMOGLOBIN 12.4 g/dL (11.5-16.0); LYMPHOCYTES # (AUTO) 2.4 10^3/uL (1.0-4.0); LYMPHOCYTES % (AUTO) 12 % (12-44); MEAN CORPUSCULAR HEMOGLOBIN 25 pg (25-34); MEAN CORPUSCULAR HGB CONC 30 g/dL (32-36); MEAN CORPUSCULAR VOLUME 84 fL (80-99); MEAN PLATELET VOLUME 9.7 fL (9.0-12.2); MONOCYTES % (AUTO) 5 % (0-12); NEUTROPHILS # (AUTO) 15.4 10^3/uL (1.8-7.8); NEUTROPHILS % (AUTO) 80 % (42-75); PLATELET COUNT 389 10^3/uL (130-400); WHITE BLOOD COUNT 19.2 10^3/uL (4.3-11.0)
[2022-09-25] MEDS ORDERED: CATHETER FLUSH 10 ML SYR IV PRN (23:45)
[2022-09-25] MEDS ORDERED: IOHEXOL 350 MG/ML 100 ML (OMNIPAQUE 350) VIAL IV ONE (23:45)
[2022-09-25] MEDS ORDERED: NS 100 ML (IVPB) BAG IV ONE (23:45)
[2022-09-26] VITALS (21 sets, daily range): BP systolic 67–139; BP diastolic 42–84
[2022-09-26 00:01] LABS: INR 0.9 (0.8-1.4); PROTHROMBIN TIME PATIENT 12.8 SEC (12.2-14.7)
[2022-09-26 00:09] LABS: ALBUMIN 3.9 GM/DL (3.2-4.5); ANISOCYTOSIS SLIGHT; BAND NEUTROPHILS 0 %; BASOPHILS % (MANUAL) 0 %; BILIRUBIN,TOTAL 0.2 MG/DL (0.1-1.0); CALCIUM 9.4 MG/DL (8.5-10.1); CREATININE SERUM 0.84 MG/DL (0.60-1.30); EOSINOPHILS % (MANUAL) 0 %; LYMPHOCYTES % (MANUAL) 11 %; MONOCYTES % (MANUAL) 8 %; NEUTROPHILS % (MANUAL) 77 %; POLYCHROMASIA SLIGHT; POTASSIUM 3.9 MMOL/L (3.6-5.0); REACTIVE LYMPHOCYTES 4 %; TOTAL PROTEIN 7.2 GM/DL (6.4-8.2)
[2022-09-26] MEDS ORDERED: NS IV 1000 ML 1,000 ML IV SCH (01:00)
[2022-09-26 01:21] LABS: HEMATOCRIT 37 % (35-52); HEMOGLOBIN 10.9 g/dL (11.5-16.0); MEAN CORPUSCULAR HEMOGLOBIN 25 pg (25-34); MEAN CORPUSCULAR HGB CONC 30 g/dL (32-36); MEAN CORPUSCULAR VOLUME 84 fL (80-99); MEAN PLATELET VOLUME 9.5 fL (9.0-12.2); PLATELET COUNT 348 10^3/uL (130-400); WHITE BLOOD COUNT 18.3 10^3/uL (4.3-11.0)
[2022-09-26] MEDS ORDERED: NS IV 1000 ML 1,000 ML ONE (01:54)
[2022-09-26] MEDS: NS IV 1000 ML 1,000 ML IV SCH ×5 (01:55→20:43)
[2022-09-26] MEDS ORDERED: fentaNYL INJ 100 MCG/2 ML AMP IV PRN (02:30)
[2022-09-26] MEDS ORDERED: ONDANSETRON 4 MG/2 ML (SDV) Z0FRAN IV PRN (02:30)
[2022-09-26 03:20] LABS: HEMOGLOBIN 9.4 g/dL (11.5-16.0)
[2022-09-26 05:58] LABS: BASOPHILS # (AUTO) 0.1 10^3/uL (0.0-0.1); BASOPHILS % (AUTO) 1 % (0-10); EOSINOPHILS # (AUTO) 0.4 10^3/uL (0.0-0.3); EOSINOPHILS % (AUTO) 2 % (0-10); HEMATOCRIT 30 % (35-52); HEMOGLOBIN 8.8 g/dL (11.5-16.0); LYMPHOCYTES # (AUTO) 3.2 10^3/uL (1.0-4.0); LYMPHOCYTES % (AUTO) 14 % (12-44); MEAN CORPUSCULAR HEMOGLOBIN 25 pg (25-34); MEAN CORPUSCULAR HGB CONC 29 g/dL (32-36); MEAN CORPUSCULAR VOLUME 86 fL (80-99); MEAN PLATELET VOLUME 10.2 fL (9.0-12.2); MONOCYTES # (AUTO) 1.2 10^3/uL (0.0-1.0); MONOCYTES % (AUTO) 5 % (0-12); NEUTROPHILS # (AUTO) 17.8 10^3/uL (1.8-7.8); NEUTROPHILS % (AUTO) 78 % (42-75); PLATELET COUNT 460 10^3/uL (130-400); WHITE BLOOD COUNT 22.8 10^3/uL (4.3-11.0)
[2022-09-26] MEDS ORDERED: NS IV 500 ML 500 ML IV SCH ×3 (06:00→19:00)
[2022-09-26 06:22] LABS: HEMOGLOBIN 7.8 g/dL (11.5-16.0)
[2022-09-26 06:26] LABS: CREATININE SERUM 0.73 MG/DL (0.60-1.30); POTASSIUM 4.7 MMOL/L (3.6-5.0)
--- NOTE | 2022-09-26 06:35 | Tele-ICU Progress Note ---
Subjective Date Seen by a Provider: Sep 26, 2022 Subjective/Events-last exam This virtual visit was conducted using real time audio/video. Thank you for asking us to see this patient for respiratory insufficiency due to COPD/LOLI/sarcoidosis. Recent events: Admitted with LGIB following colonoscopy 09/25/2022 with 2 polyps removed. PMH: Covid 07/2022 COPD LOLI sarcoidosis CHF O2 dependent HTN, HL GERD, vocal cord dysfunction RLS hypothyroid, obesity SH: smoking history: 2 PPD FH: Non-contributory ROS: as in HPI PE: Obese. VSS. O2 sat 98% on 2 LPM HEENT: No obvious masses, adenopathy or JVD. Chest: clear to auscultation. CV: RRR S1 S2 No murmur or added sounds. Abd: Non-tender. Bowel sounds Y. : Unremarkable. Brown N. DISH CLOTH INSPECTOR/psychiatric: Grossly intact. No obvious focal findings. Extremities: No edema. Capillary refill < 3 seconds. Skin: unremarkable. Results: Elevated WCC 22.8, BG 224. Decreased Hb 8.8. CT abd w 1.5 cm cystic liver lesions. Available chart/ vitals / labs / images reviewed. Video assessment done using teleICU camera, rest of exam as per RN. A/P: Respiratory insufficiency: Continue present management with O2. Monitor for increasing oxygenation needs and/or need for intubation. Critical Care: critically ill patient. Cont. IVF, Fent., Zofran, PPI. Discussed with RN Leeann. Asked RN to reach out to eICU if any questions or concerns later. Time spent with patient/coordination of care with other health professionals (mins): 20 Sepsis Event Evaluation Height, Weight, BMI Height: 5'6.00" Weight: 310lbs. 8.0oz. 140.867097nu; 47.57 BMI Method:Stated Exam Exam Patient acknowledged, consented, and participated in this virtual visit which was conducted using real time audio/video Vital Signs Date Time Temp Pulse Resp B/P (MAP) Pulse Ox O2 Delivery O2 Flow Rate FiO2 09/26/22 06:26 35.1 93 20 84/53 98 Nasal Cannula 3.00 09/26/22 04:42 36.6 85 22 122/75 (91) 93 Nasal Cannula 3.00 09/26/22 03:19 36.6 88 84/52 (63) 09/26/22 02:28 105/75 (85) 97 Nasal Cannula 2.00 09/26/22 02:17 86 09/26/22 01:55 Nasal Cannula 2.00 09/26/22 01:55 36.6 88 20 77/51 (60) 91 Room Air 09/26/22 01:45 84 22 102/60 99 Nasal Cannula 2.00 09/25/22 23:27 35.9 82 22 107/68 (81) 95 Room Air 2.00 I & O 09/26/22 07:00 Intake Total 1000 ml Balance 1000 ml Height & Weight Height: 5'6.00" Weight: 310lbs. 8.0oz. 140.200376zj; 47.57 BMI Method:Stated General Appearance: No Apparent Distress, Obese Respiratory: Normal Breath Sounds Capillary Refill: Less Than 3 Seconds Peripheral Pulses: 1+ Dorsalis Pedis (R), 1+ Left Dors-Pedis (L) Gastrointestinal: soft, tenderness (MILD DIFFUSE LOWER ABDOMINAL TENDERNESS), hernia (VENTRAL HERNIA ABOVE UMBILICUS. PARTIALLY REDUCIBLE. MILDLY TENDER--PT STATES IS NORMAL. ) Results Lab Laboratory Tests 09/25/22 23:36 09/26/22 01:18 09/26/22 02:54 09/26/22 05:17 Assessment/Plan Assessment/Plan See free text. Critical Care: Critically Ill Patient AGUSTIN BUSTILLO MD Sep 26, 2022 06:35
[2022-09-26] MEDS: PANTOPRAZOLE 40 MG (PROTONIX) VIAL IV SCH (08:08)
[2022-09-26] MEDS ORDERED: NS IV 500 ML 500 ML ONE (08:19)
--- NOTE | 2022-09-26 08:28 | Diagnostic Imaging Report ---
PROCEDURE: CT abdomen and pelvis with contrast. TECHNIQUE: Multiple contiguous axial images were obtained through the abdomen and pelvis after administration of intravenous contrast. Auto Exposure Controls were utilized during the CT exam to meet ALARA standards for radiation dose reduction. All CT scans use one or more of the following dose optimizing techniques: automated exposure control, MA and/or KvP adjustment based on patient size and exam type or iterative reconstruction. INDICATION: Colonoscopy performed earlier today with removal of 2 polyps. Patient has bloody stools and abdominal pain. No prior studies are available for comparison. The lung bases are clear. There are 2 rounded low-attenuation lesions within the liver, largest in the left lobe measuring approximately 15 mm in size. These do measure higher attenuation than simple water and solid lesions cannot be entirely excluded. Gallbladder appears to be surgically absent. There is no biliary ductal dilatation. The pancreas and spleen are unremarkable. No adrenal mass is identified. Kidneys are unremarkable. There is no hydronephrosis. Aorta is nonaneurysmal. There is a supraumbilical midline fat-containing ventral hernia. The bowel loops are nondilated. There is some high attenuation blush in the region of the cecum. Area of active hemorrhage cannot be entirely excluded. No free air is identified to suggest hollow viscus perforation. No free fluid or hemoperitoneum is seen. Bladder and uterus are unremarkable. IMPRESSION: 1. Area of hyperdensity in the cecum which could represent active hemorrhage. Dedicated CT utilizing the gastrointestinal bleeding protocol could be performed for further evaluation, utilizing pre and postcontrast imaging and CT angiography. Conventional angiography would be an additional consideration. 2. Indeterminate low-attenuation lesions within the liver. These appear to be higher attenuation than simple cysts and solid lesions cannot be entirely excluded. 3. No free air is detected. Dictated by: Dictated on workstation # [id number]
[2022-09-26 09:27] LABS: HEMOGLOBIN 9.3 g/dL (11.5-16.0)
[2022-09-26 13:33] LABS: HEMOGLOBIN 9.3 g/dL (11.5-16.0)
[2022-09-26] MEDS ORDERED: DULO60CA59 PO (15:47)
[2022-09-26 18:26] LABS: HEMOGLOBIN 8.4 g/dL (11.5-16.0)
--- NOTE | 2022-09-26 19:02 | Progress Note-Pre Operative ---
Pre-Operative Progress Note Date of Available H&P: Sep 26, 2022 Date H&P Reviewed: Sep 26, 2022 Time H&P Reviewed: 19:00 History & Physical: No changes noted Pre-Operative Diagnosis: persistent lower GI bleeding s/p polypectomy ROBERT ELIZABETH MD Sep 26, 2022 19:02
--- NOTE | 2022-09-26 19:56 | HISTORY AND PHYSICAL ---
ATTENDING TAP PULLER: [facility]. The patient is a 47-year-old female with multiple medical problems. She is known to us. She was seen in the past for epigastric pain as well as gastroesophageal reflux disease. She has a history of sarcoidosis, congestive heart failure, COPD as well as vocal cord injury requiring a simple vocal cord surgery. She has had several episodes of what sounds to be exacerbation of CHF as well as COPD requiring mechanical ventilation. She also underwent a cardiac workup including a catheterization, which did not show any coronary artery disease. She does have risk factors for peptic ulcer disease including a 30-pack smoking history as well as obesity and taking significant amounts of caffeinated beverages. On 01/17/2016, she underwent an EGD with biopsy and was found to have reflux esophagitis, [place] grade B; small hiatal hernia, 1 cm in size as well as a moderate gastritis. She was referred over to us for screening colonoscopy. She had never had a colonoscopy up to this point in her life. She did not report any red blood per rectum, nor any dark tarry stools. She also did not report any family history of colon cancer. On 09/25/2022, she underwent a colonoscopy and was found to have chronic stage II, external, internal hemorrhoids as well as 2 polyps, one of the proximal ascending colon, 5 mm in size, which was excised by a snare and electrocautery as well as a distal ascending colon polyp, 2 mm in size and this was cauterized and destroyed using forceps and electrocautery with visualization of good hemostasis during the procedure. The patient returned to the Emergency Department one day later with rectal bleeding. She had multiple episodes of red blood per rectum, which were significant. The patient was admitted to the floor; however, she did have a decrease in blood pressure and was transferred to the ICU. Her initial hemoglobin was stable at 12.4; however, she did have a decrease in her hemoglobin to 9.3. Upon talking with the patient's mother as well as family members, it appears that there are many members of her family that do have some form of hemophilia, however, they are sure unsure if this is hemophilia A or B. It sounds like that there were some relatives that had such severe disease that they at an early age. The mother of the patient's states that she is a carrier and has had some bleeding complications before in the past requiring what she remembers is 5-7 units of blood. She also had reported that the patient has had some bleeding complications in the past; however, cannot remember what they were and how they were treated. 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 The patient has been given 2 units of packed red blood cells; however, due to the clotting factor deficiency, we will proceed with resuscitation with fresh frozen plasma in hopes of allowing replenishment of that clotting factors and allow for adequate clotting. If this does not work, we will then proceed with a repeat colonoscopy and hopeful hemostasis with endoscopic means. 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 PAST SURGERIES: Laparoscopic appendectomy 2011, open cholecystectomy 1994, tonsillectomy 1989, lumbar back surgery x2 2010, right knee arthroscopy 2012, left vocal cord excision 2013, cardiac catheterization 2013, mediastinoscopy 2012. ALLERGIES: ERYTHROMYCIN. MEDICATIONS: Meloxicam 7.5 mg daily, omeprazole 20 mg daily, gabapentin 600 mg daily, Singulair 10 mg daily, carvedilol 3.125 mg daily, albuterol inhaler 108 mcg daily, levothyroxine 50 mcg daily. SOCIAL HISTORY: Positive smoke a 30-pack years. Negative alcohol. FAMILY HISTORY: Father, stroke. Maternal grandfather, lung cancer. 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 REVIEW OF SYSTEMS: The patient is awake and alert and only whispers due to her previous vocal cord surgery. Her blood pressure currently is in the 100-110 systolic. Her last hemoglobin was 9.3. She does not appear to be experiencing any shortness of breath or difficulty breathing or using accessory muscles for breathing. No chest pain, palpitations or diaphoresis. No nausea or vomiting. She does report some mild crampy abdominal pain. She is having intermittent episodes of red blood per rectum. No fever, chills. No recent inadvertent weight loss. All other review of systems negative. VITAL SIGNS: Temperature 36.6, blood pressure 119/70, respirations 16, pulse 82, pulse ox 92% on 2 liters nasal cannula. PHYSICAL EXAM: CHEST: Few scattered rales and expiratory wheezes bilaterally. HEART: Regular, no murmurs. EXTREMITIES: No lower extremity edema. Negative Homans sign. HEENT: No scleral icterus. No cervical lymphadenopathy. ABDOMEN: Soft, mild discomfort in the lower abdominal quadrants. No peritoneal signs. SKIN: Warm, dry. ASSESSMENT AND PLAN: A 47-year-old female with a bleeding, status post polypectomy of 2 polyps of the ascending colon, 2 days ago. It appears that she may also have a hemophilia carrier disease and has had some issues with bleeding complications, as well as many other people in her family including her mother who states is a carrier. We will continue with resuscitation with packed red blood cells; however, also continue with resuscitation with fresh frozen plasma, which does contain all clotting factors including factor VIII and IX in hopes of allowing for the clotting cascade to take effect and stop the bleeding. If the bleeding persists, then we will proceed with a colonoscopy as well as hopeful endoscopic means of hemostasis. The patient also may need hematology consultation for further testing. Job ID: [id number] DocumentID: [id number] Dictated Date: 09/26/2022 19:17:34 Manual Machinist Date: 09/26/2022 19:54:00 Dictated By: ROBERT ELIZABETH MD MTDD
[2022-09-26] MEDS ORDERED: FUROSEMIDE 40 MG/4 ML INJ (LASIX) IVP ONE (22:15)
[2022-09-27] VITALS (7 sets, daily range): BP systolic 106–128; BP diastolic 63–80
[2022-09-27 02:21] LABS: BASOPHILS # (AUTO) 0.1 10^3/uL (0.0-0.1); BASOPHILS % (AUTO) 1 % (0-10); EOSINOPHILS # (AUTO) 0.2 10^3/uL (0.0-0.3); EOSINOPHILS % (AUTO) 1 % (0-10); HEMATOCRIT 26 % (35-52); HEMOGLOBIN 7.8 g/dL (11.5-16.0); LYMPHOCYTES % (AUTO) 17 % (12-44); MEAN CORPUSCULAR HEMOGLOBIN 26 pg (25-34); MEAN CORPUSCULAR HGB CONC 31 g/dL (32-36); MEAN CORPUSCULAR VOLUME 85 fL (80-99); MEAN PLATELET VOLUME 10.1 fL (9.0-12.2); MONOCYTES # (AUTO) 0.7 10^3/uL (0.0-1.0); MONOCYTES % (AUTO) 6 % (0-12); NEUTROPHILS % (AUTO) 75 % (42-75); PLATELET COUNT 241 10^3/uL (130-400)
[2022-09-27 02:45] LABS: CREATININE SERUM 0.69 MG/DL (0.60-1.30); MAGNESIUM 1.8 MG/DL (1.6-2.4); PHOSPHORUS 3.3 MG/DL (2.3-4.7); POTASSIUM 3.8 MMOL/L (3.6-5.0)
[2022-09-27] MEDS ORDERED: NS IV 500 ML 500 ML IV PRN (03:00)
[2022-09-27] MEDS: NS IV 1000 ML 1,000 ML IV SCH (05:42)
[2022-09-27 05:55] LABS: HEMOGLOBIN 7.7 g/dL (11.5-16.0)
[2022-09-27] MEDS ORDERED: MAGNESIUM 1 GM/100 ML IVPB 100 ML IV SCH (06:00)
[2022-09-27] MEDS ORDERED: POTASSIUM CL 10MEQ/50ML IVPB 50 ML IV SCH (06:00)
[2022-09-27] MEDS ORDERED: KCL 20 MEQ TAB (K-DUR) PO SCH (06:00)
[2022-09-27] MEDS: PANTOPRAZOLE 40 MG (PROTONIX) VIAL IV SCH (07:49)
--- NOTE | 2022-09-27 09:21 | Tele-ICU Progress Note ---
Subjective Date Seen by a Provider: Sep 27, 2022 Subjective/Events-last exam This virtual visit was conducted using real time audio/video. Thank you for asking us to see this patient for respiratory insufficiency due to COPD/LOLI/sarcoidosis. Recent events: Admitted with LGIB following colonoscopy 09/25/2022 with 2 polyps removed. Recd PRBCs and FFP. PMH: Covid 07/2022 COPD LOLI sarcoidosis CHF O2 dependent HTN, HL GERD, vocal cord dysfunction RLS hypothyroid, obesity. 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 SH: smoking history: 2 PPD FH: Non-contributory ROS: as in HPI PE: Resting comfortably. Obese. VSS. O2 sat 98% on 2 LPM HEENT: No obvious masses, adenopathy or JVD. Chest: clear to auscultation. CV: RRR S1 S2 No murmur or added sounds. Abd: Non-tender. Bowel sounds Y. : Unremarkable. Brown Y. FINANCIAL MANAGER/psychiatric: Grossly intact. No obvious focal findings. Extremities: No edema. Capillary refill < 3 seconds. Skin: unremarkable. Results: Elevated WCC 12, improved. Decreased Hb 7.7. CT abd w 1.5 cm cystic liver lesions. Available chart/ vitals / labs / images reviewed. Video assessment done using teleICU camera, rest of exam as per RN. A/P: Respiratory insufficiency: Continue present management with O2. Critical Care: critically ill patient. Cont. IVF, Fent., PRN Zofran, PPI. Colonoscopy today. Discussed with PATRICIA Fisher. Asked RN to reach out to eICU if any questions or concerns later. Time spent with patient/coordination of care with other health professionals (mins): 15. Sepsis Event Evaluation Height, Weight, BMI Height: 5'6.00" Weight: 310lbs. 8.0oz. 140.511261dg; 47.14 BMI Method:Stated Exam Exam Patient acknowledged, consented, and participated in this virtual visit which was conducted using real time audio/video Vital Signs Date Time Temp Pulse Resp B/P (MAP) Pulse Ox O2 Delivery O2 Flow Rate FiO2 09/27/22 08:00 85 120/66 (84) 93 Nasal Cannula 3.00 09/27/22 07:51 36.8 09/27/22 07:00 81 22 121/70 (87) 93 Nasal Cannula 3.00 09/27/22 07:00 86 09/27/22 06:00 79 18 117/55 (75) 98 Nasal Cannula 3.00 09/27/22 05:00 79 15 120/60 (80) 97 Nasal Cannula 3.00 09/27/22 04:55 Nasal Cannula 3.00 09/27/22 04:12 Nasal Cannula 3.00 09/27/22 04:00 78 13 113/50 (71) 98 Nasal Cannula 4.00 09/27/22 03:00 79 21 120/56 (77) 99 Nasal Cannula 4.00 09/27/22 02:57 36.5 Nasal Cannula 4.00 09/27/22 02:00 81 20 110/55 (73) 92 Nasal Cannula 3.00 09/27/22 01:00 75 17 122/79 (93) 99 Nasal Cannula 3.00 09/27/22 01:00 Nasal Cannula 3.00 09/27/22 01:00 80 09/27/22 00:50 36.3 77 18 128/80 95 Nasal Cannula 2.00 09/27/22 00:18 36.3 Nasal Cannula 2.00 09/27/22 00:18 Nasal Cannula 2.00 09/27/22 00:00 76 20 118/76 (90) 97 Nasal Cannula 2.00 09/26/22 23:00 81 23 133/85 (101) 95 Nasal Cannula 2.00 09/26/22 22:55 36.3 80 18 120/73 Nasal Cannula 2.00 09/26/22 22:42 36.5 Nasal Cannula 2.00 09/26/22 22:39 36.5 82 16 139/75 96 Nasal Cannula 2.00 09/26/22 22:15 36.5 77 16 135/80 96 Nasal Cannula 2.00 09/26/22 22:00 84 13 116/72 (87) 96 Nasal Cannula 2.00 09/26/22 21:00 80 13 124/68 (86) 96 Nasal Cannula 2.00 09/26/22 20:39 36.5 80 14 122/74 92 Nasal Cannula 2.00 09/26/22 20:25 36.2 82 16 117/42 93 Nasal Cannula 2.00 09/26/22 20:00 36.2 09/26/22 20:00 82 14 118/83 (95) 95 Nasal Cannula 2.00 09/26/22 20:00 Nasal Cannula 2.00 09/26/22 19:00 80 09/26/22 19:00 36.2 Nasal Cannula 2.00 09/26/22 19:00 82 21 135/80 (98) 92 Nasal Cannula 2.00 09/26/22 18:26 36.6 82 16 119/70 92 Nasal Cannula 2.00 09/26/22 18:00 81 18 109/69 (82) 94 Nasal Cannula 2.00 09/26/22 17:00 81 17 135/85 (102) 97 Nasal Cannula 2.00 09/26/22 16:28 36.5 09/26/22 16:25 36.4 83 15 109/84 94 Nasal Cannula 2.00 09/26/22 16:06 36.4 85 14 115/79 94 Nasal Cannula 2.00 09/26/22 16:00 84 27 128/71 (90) 94 Nasal Cannula 2.00 09/26/22 15:50 Nasal Cannula 2.00 09/26/22 15:48 36.1 82 14 116/77 94 Nasal Cannula 2.00 09/26/22 15:00 82 13 117/73 (88) 95 Nasal Cannula 2.00 09/26/22 14:00 85 19 120/74 (89) 94 Nasal Cannula 2.00 09/26/22 13:39 98 Nasal Cannula 2.00 09/26/22 13:38 36.8 85 14 109/79 99 Nasal Cannula 2.00 09/26/22 13:19 36.6 90 20 96/64 98 Nasal Cannula 3.00 09/26/22 13:00 86 14 116/72 (87) 97 Nasal Cannula 4.00 09/26/22 13:00 86 09/26/22 12:00 79 17 98 Nasal Cannula 4.00 09/26/22 11:57 36.9 79 17 111/75 98 Nasal Cannula 3.00 09/26/22 11:55 36.7 09/26/22 11:50 Nasal Cannula 3.00 09/26/22 11:00 82 23 111/75 (87) 99 Nasal Cannula 4.00 09/26/22 10:00 89 14 96/67 (77) 99 Nasal Cannula 4.00 I & O 09/27/22 07:00 Intake Total 3660 ml Output Total 5325 ml Balance -1665 ml Height & Weight Height: 5'6.00" Weight: 310lbs. 8.0oz. 140.256515hi; 47.14 BMI Method:Stated General Appearance: No Apparent Distress, Obese Respiratory: Normal Breath Sounds Capillary Refill: Less Than 3 Seconds Peripheral Pulses: 1+ Dorsalis Pedis (R), 1+ Left Dors-Pedis (L) Gastrointestinal: soft, tenderness (MILD DIFFUSE LOWER ABDOMINAL TENDERNESS), hernia (VENTRAL HERNIA ABOVE UMBILICUS. PARTIALLY REDUCIBLE. MILDLY TENDER--PT STATES IS NORMAL. ) Results Lab Laboratory Tests 09/25/22 23:36 09/26/22 01:18 09/26/22 02:54 09/26/22 05:17 09/26/22 06:12 09/26/22 09:14 09/26/22 13:15 09/26/22 18:00 09/27/22 02:09 09/27/22 05:50 Assessment/Plan Assessment/Plan See free text Critical Care: Critically Ill Patient AGUSTIN BUSTILLO MD Sep 27, 2022 09:20
[2022-09-27] MEDS ORDERED: NS IV 500 ML 500 ML IV SCH (10:30)
--- NOTE | 2022-09-27 11:33 | Progress Note ---
Subjective Date Seen by a Provider: Sep 27, 2022 Time Seen by a Provider: 11:00 Subjective/Events-last exam doing better. has not had a BM now for >24 hrs. 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 clinically stopped bleeding. Objective Exam Vital Signs Date Time Temp Pulse Resp B/P (MAP) Pulse Ox O2 Delivery O2 Flow Rate FiO2 09/27/22 11:00 87 21 118/66 (83) 92 Nasal Cannula 3.00 09/27/22 10:00 85 15 114/64 (81) 96 Nasal Cannula 3.00 09/27/22 09:00 85 13 109/68 (82) 97 Nasal Cannula 3.00 09/27/22 08:00 85 120/66 (84) 93 Nasal Cannula 3.00 09/27/22 07:51 36.8 09/27/22 07:00 81 22 121/70 (87) 93 Nasal Cannula 3.00 09/27/22 07:00 86 09/27/22 06:00 79 18 117/55 (75) 98 Nasal Cannula 3.00 09/27/22 05:00 79 15 120/60 (80) 97 Nasal Cannula 3.00 09/27/22 04:55 Nasal Cannula 3.00 09/27/22 04:12 Nasal Cannula 3.00 09/27/22 04:00 78 13 113/50 (71) 98 Nasal Cannula 4.00 09/27/22 03:00 79 21 120/56 (77) 99 Nasal Cannula 4.00 09/27/22 02:57 36.5 Nasal Cannula 4.00 09/27/22 02:00 81 20 110/55 (73) 92 Nasal Cannula 3.00 09/27/22 01:00 75 17 122/79 (93) 99 Nasal Cannula 3.00 09/27/22 01:00 Nasal Cannula 3.00 09/27/22 01:00 80 09/27/22 00:50 36.3 77 18 128/80 95 Nasal Cannula 2.00 09/27/22 00:18 36.3 Nasal Cannula 2.00 09/27/22 00:18 Nasal Cannula 2.00 09/27/22 00:00 76 20 118/76 (90) 97 Nasal Cannula 2.00 09/26/22 23:00 81 23 133/85 (101) 95 Nasal Cannula 2.00 09/26/22 22:55 36.3 80 18 120/73 Nasal Cannula 2.00 09/26/22 22:42 36.5 Nasal Cannula 2.00 09/26/22 22:39 36.5 82 16 139/75 96 Nasal Cannula 2.00 09/26/22 22:15 36.5 77 16 135/80 96 Nasal Cannula 2.00 09/26/22 22:00 84 13 116/72 (87) 96 Nasal Cannula 2.00 09/26/22 21:00 80 13 124/68 (86) 96 Nasal Cannula 2.00 09/26/22 20:39 36.5 80 14 122/74 92 Nasal Cannula 2.00 09/26/22 20:25 36.2 82 16 117/42 93 Nasal Cannula 2.00 09/26/22 20:00 36.2 09/26/22 20:00 82 14 118/83 (95) 95 Nasal Cannula 2.00 09/26/22 20:00 Nasal Cannula 2.00 09/26/22 19:00 80 09/26/22 19:00 36.2 Nasal Cannula 2.00 09/26/22 19:00 82 21 135/80 (98) 92 Nasal Cannula 2.00 09/26/22 18:26 36.6 82 16 119/70 92 Nasal Cannula 2.00 09/26/22 18:00 81 18 109/69 (82) 94 Nasal Cannula 2.00 09/26/22 17:00 81 17 135/85 (102) 97 Nasal Cannula 2.00 09/26/22 16:28 36.5 09/26/22 16:25 36.4 83 15 109/84 94 Nasal Cannula 2.00 09/26/22 16:06 36.4 85 14 115/79 94 Nasal Cannula 2.00 09/26/22 16:00 84 27 128/71 (90) 94 Nasal Cannula 2.00 09/26/22 15:50 Nasal Cannula 2.00 09/26/22 15:48 36.1 82 14 116/77 94 Nasal Cannula 2.00 09/26/22 15:00 82 13 117/73 (88) 95 Nasal Cannula 2.00 09/26/22 14:00 85 19 120/74 (89) 94 Nasal Cannula 2.00 09/26/22 13:39 98 Nasal Cannula 2.00 09/26/22 13:38 36.8 85 14 109/79 99 Nasal Cannula 2.00 09/26/22 13:19 36.6 90 20 96/64 98 Nasal Cannula 3.00 09/26/22 13:00 86 14 116/72 (87) 97 Nasal Cannula 4.00 09/26/22 13:00 86 09/26/22 12:00 79 17 98 Nasal Cannula 4.00 09/26/22 11:57 36.9 79 17 111/75 98 Nasal Cannula 3.00 09/26/22 11:55 36.7 09/26/22 11:50 Nasal Cannula 3.00 I & O 09/27/22 07:00 Intake Total 3660 ml Output Total 5325 ml Balance -1665 ml Capillary Refill : Less Than 3 Seconds General Appearance: No Apparent Distress HEENT: PERRL/EOMI Neck: Full Range of Motion Respiratory: Decreased Breath Sounds, Rhonci Cardiovascular: Regular Rate, Rhythm Gastrointestinal: normal bowel sounds, non tender, soft Extremity: Normal Capillary Refill Neurologic/Psychiatric: Alert, Oriented x3 Skin: Normal Color Lymphatic: No Adenopathy Results Lab Laboratory Tests 09/26/22 13:15: Hemoglobin 9.3L, Hematocrit 31L 09/26/22 18:00: Hemoglobin 8.4L, Hematocrit 28L 09/27/22 02:09: Hemoglobin 7.8L, Hematocrit 26L, White Blood Count 12.0H, Red Blood Count 3.00L, Mean Corpuscular Volume 85, Mean Corpuscular Hemoglobin 26, Mean Corpuscular Hemoglobin Concent 31L, Red Cell Distribution Width 17.1H, Platelet Count 241, Mean Platelet Volume 10.1, Immature Granulocyte % (Auto) 0, Neutrophils (%) (Auto) 75, Lymphocytes (%) (Auto) 17, Monocytes (%) (Auto) 6, Eosinophils (%) (Auto) 1, Basophils (%) (Auto) 1, Neutrophils # (Auto) 9.0H, Lymphocytes # (Auto) 2.0, Monocytes # (Auto) 0.7, Eosinophils # (Auto) 0.2, Basophils # (Auto) 0.1, Immature Granulocyte # (Auto) 0.1, Sodium Level 141, Potassium Level 3.8, Chloride Level 104, Carbon Dioxide Level 29, Anion Gap 8, Blood Urea Nitrogen 12, Creatinine 0.69, Estimat Glomerular Filtration Rate 108, BUN/Creatinine Ratio 17, Glucose Level 94, Calcium Level 9.0, Phosphorus Level 3.3, Magnesium Level 1.8 09/27/22 05:50: Hemoglobin 7.7L, Hematocrit 25L Assessment/Plan Assessment/Plan Assess & Plan/Chief Complaint persistent bleeding s/p colonoscopy and ascending colon polypectomy. likely bleeding stopped. will transfer to floor. start clears and advance as tolerated. will give 2u PRBC due to COPD. ambulate. ROBERT LEIZABETH MD Sep 27, 2022 11:33
[2022-09-27 12:09] LABS: HEMOGLOBIN 7.5 g/dL (11.5-16.0)
[2022-09-27] MEDS ORDERED: FUROSEMIDE 40 MG/4 ML INJ (LASIX) IVP ONE (13:30)
--- NOTE | 2022-09-27 13:51 | Discharge Inst-Surgical ---
D/C Lap Instructions-CLRAA Follow Up Appt in 2 weeks Activity as tolerated High Fiber Diet 25g or more per day Avoid Alcohol, Caffeine, Spicy [place] and Acid foods. Drink 64 fluid oz or more of fluids per day. Symptoms to Report: Fever over 101 degree F, Nausea/Vomiting If any problems/questions: Contact your physician or go to Emergency Room ROBERT ELIZABETH MD Sep 27, 2022 13:51
[2022-09-27 18:17] LABS: HEMOGLOBIN 9.9 g/dL (11.5-16.0)
== END 2022-09-27 18:50 | disposition home or self-care (01) | DRG 920 ==
LOC: EDUNIT# 23:21 → ER 23:24 → 4TH 09-26 01:07 → ICU 09-26 05:52 → 4TH 09-27 15:41
PROVIDERS: ADMIT Surgery; ATTEND Surgery
DX: K91.840 Postprocedural hemorrhage of a digestive system organ or structure following a digestive system procedure (principal); Z68.42 Body mass index [BMI] 45.0-49.9, adult; J44.9 Chronic obstructive pulmonary disease, unspecified; F17.210 Nicotine dependence, cigarettes, uncomplicated; Z99.81 Dependence on supplemental oxygen; D72.829 Elevated white blood cell count, unspecified; E66.01 Morbid (severe) obesity due to excess calories; I50.9 Heart failure, unspecified; E78.00 Pure hypercholesterolemia, unspecified; I11.0 Hypertensive heart disease with heart failure; G43.909 Migraine, unspecified, not intractable, without status migrainosus; E11.40 Type 2 diabetes mellitus with diabetic neuropathy, unspecified; K21.9 Gastro-esophageal reflux disease without esophagitis; M19.90 Unspecified osteoarthritis, unspecified site; M79.7 Fibromyalgia; G89.29 Other chronic pain; M54.9 Dorsalgia, unspecified; E03.9 Hypothyroidism, unspecified; F41.9 Anxiety disorder, unspecified; F32.A Depression, unspecified; Z79.899 Other long term (current) drug therapy
CPT/HCPCS: 36415; 74177; 80048; 80053; 82150; 82947; 83690; 83735; 84100; 85007; 85014; 85018; 85025; 85027; 85610; 85730; 86850; 86900; 86901; 86920; 93041

== ENCOUNTER → 2022-09-25 | Day surgery (SDC) | payer MEDICARE, MEDICAID ==
--- NOTE | 2022-09-24 18:18 | HISTORY AND PHYSICAL ---
DATE OF SERVICE: 09/25/2022 PROCEDURE DATE: 09/25/2022 ATTENDING PRIMARY CARE PHYSICIAN: Emily Briggs NP INDICATIONS: This is a 47-year-old female who is known to us. She has been seen in the past for epigastric pain. 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 However, since then, she can only whisper. She has also had several episodes of what sounds to be exacerbations of CHF as well as COPD requiring mechanical ventilation. She has had cardiac workup in the past and has undergone cardiac catheterization, which did not show any coronary artery disease. She does have a history of peptic ulcer disease and underwent EGDs in the past and does have risk factors for peptic ulcer disease including a 14-wgyb-mfhe smoking history and obesity as well as taking in significant amounts of caffeinated beverages as well as spicy, greasy and acidic foods. On 01/17/2016, she underwent an EGD with biopsy. At that time, she was found to have reflux esophagitis grade B. small hiatal hernia 1 cm in size and a moderate gastritis. On today's visit, she is in need of a screening colonoscopy. She reports she has never had a colonoscopy done before. Denies any blood in her stool. She also denies any family history of any colon cancer. She denies any diarrhea or constipation. MEDICAL HISTORY: Sarcoidosis, peptic ulcer disease, diabetes, CHF, COPD, restless leg syndrome, fibromyalgia, neuropathy, degenerative joint disease of the lumbar vertebrae, hypothyroidism. SURGICAL HISTORY: Laparoscopic appendectomy in 2011, open cholecystectomy in 1994, tonsillectomy in 1989, lumbar back surgery x2 in 2010, right knee arthroscopy in 2012, left vocal cord excision in 2013, cardiac catheterization in 2013, mediastinoscopy in 2012. ALLERGIES: ERYTHROMYCIN. MEDICATIONS: 4 mg, meloxicam 7.5 mg, omeprazole 20 mg, gabapentin 600 mg, Singulair 10 mg, carvedilol 3.125 mg, clonidine 0.1 mg. Albuterol sulfate HFA 108 mcg, levothyroxine 50 mcg. SOCIAL HISTORY: Positive for tobacco smoker, 30 pack years. Negative for alcohol. FAMILY HISTORY: Father, stroke. Maternal grandfather, lung cancer. REVIEW OF SYSTEMS: Well-nourished female in no acute distress. She is not experiencing any shortness of breath or difficulty breathing. No chest pain, palpitations or diaphoresis. No nausea, vomiting or abdominal pain. No diarrhea or constipation. No red blood per rectum. No dark tarry stools. No fever or chills. No recent inadvertent weight loss. All other review of systems negative. PHYSICAL EXAMINATION: VITAL SIGNS: Blood pressure is 158/74. Current weight is 292.1 at 5 feet 6 inches. CHEST: Scattered rales and rhonchi bilaterally. HEART: Regular. No murmurs. EXTREMITIES: No lower extremity edema. Negative Homans sign. HEENT: No scleral icterus. No cervical lymphadenopathy. ABDOMEN: Soft, nontender, nondistended. SKIN: Warm, dry and pink. NEUROLOGIC: She is awake, alert and oriented x3. ASSESSMENT AND PLAN: A 47-year-old female who is in need of a screening colonoscopy. At this time, we will proceed with scheduling her for a screening colonoscopy. Job ID: [id number] DocumentID: [id number] Dictated Date: 09/24/2022 13:47:50 Hardwood Floor Finisher Date: 09/24/2022 17:20:00 Dictated By: COLTON GONSALES APRN
[~2022-09-25] VITALS: Ht 168 cm; Wt 134.0 kg
[~2022-09-25] MED LIST changes: +KETAMINE 50 MG/5 ML SYRINGE ONE; +LACTATED RINGERS 1,000 ML IV STA; +LIDOCAINE JELLY 2% 6 ML SYRINGE MM PRN; +MIDAZOLAM 2 MG/2 ML (VERSED) VIAL ONE; +ONDANSETRON 4 MG (ZOFRAN) ORAL DISSOLVE TAB PO PRN; +ONDANSETRON 4 MG/2 ML (SDV) Z0FRAN IVP PRN; +proPOfol 200 MG/20 ML (DIPRIVAN) VIAL IV ONE
[2022-09-25 11:45] VITALS: BP 104/55
--- NOTE | 2022-09-25 12:27 | Progress Note-Pre Operative ---
Pre-Operative Progress Note Date of Available H&P: Sep 25, 2022 Date H&P Reviewed: Sep 25, 2022 Time H&P Reviewed: 12:00 History & Physical: No changes noted Pre-Operative Diagnosis: screening o ROBERT ELIZABETH MD Sep 25, 2022 12:27
--- NOTE | 2022-09-25 12:29 | Discharge Inst-Surgical ---
D/C Lap Instructions-CLARA Follow Up Activity as tolerated High Fiber Diet 25g or more per day Avoid Alcohol, Caffeine, Spicy [place] and Acid foods. Drink 64 fluid oz or more of fluids per day. Symptoms to Report: Fever over 101 degree F, Nausea/Vomiting If any problems/questions: Contact your physician or go to Emergency Room ROBERT ELIZABETH MD Sep 25, 2022 12:28
[2022-09-25 13:05] VITALS: BP 122/56
[2022-09-25 13:10] VITALS: BP 108/55
--- NOTE | 2022-09-25 13:19 | Progress Note-Post Operative ---
Post-Operative Progess Note Surgeon (s)/Flying Shear Operator (s) Surgeon ROBERT ELIZABETH MD Flying Shear Operator: none Pre-Operative Diagnosis screening colo Post-Operative Diagnosis chronic stage 2 ext and int hemorrhoids, pedunculated polyp proximal(5mm) and distal(2mm)colon Procedure & Operative Findings Date of Procedure 09/25/22 Procedure Performed/Findings colonoscopy with bx and snare polypectomy Anesthesia Type mac Estimated Blood Loss Estimated blood loss (mL): minimal Specimens/Packing Specimens Removed prox and dist ascending colon polyp ROBERT ELIZABETH MD Sep 25, 2022 13:19
[2022-09-25 13:30] VITALS: BP 109/60
[2022-09-25 13:42] VITALS: BP 109/60
--- NOTE | 2022-09-25 13:47 | Anesthesia-General Post-Op ---
MAC Patient Condition Mental Status/LOC: Same as Preop Cardiovascular: Satisfactory Nausea/Vomiting: Absent Respiratory: Satisfactory Pain: Controlled Complications: Absent Post Op Complications Complications None Follow Up Care/Instructions Patient Instructions None needed. Anesthesiology Discharge Order Discharge Order Patient is doing well, no complaints, stable vital signs, no apparent adverse anesthesia problems. No complications reported per nursing. LUZ MARINA BENAVIDEZ CRNA Sep 25, 2022 13:47
--- NOTE | 2022-09-25 20:43 | OPERATIVE REPORT ---
DATE OF SERVICE: 09/25/2022 ATTENDING WELFARE ELIGIBILITY WORKER: Emily Briggs DNP PREOPERATIVE DIAGNOSIS: Screening colonoscopy. POSTOPERATIVE DIAGNOSES: Chronic stage II, external internal hemorrhoids. Proximal ascending colon polyp, approximately 5 mm in size. Distal ascending colon polyp, 2 mm in size. PROCEDURE: EGD with polypectomy with forceps and electrocautery and snare polypectomy. SURGEON: Dr. Elizabeth. ANESTHESIA: Monitored anesthesia care. ESTIMATED BLOOD LOSS: Minimal. FINDINGS: Chronic stage II, external internal hemorrhoids. Proximal ascending colon polyp, approximately 5 mm in size. Distal ascending colon polyp, 2 mm in size. DISPOSITION: The patient tolerated the procedure well. INDICATIONS: The patient is a 47-year-old female known to us. She was seen in the past for epigastric pain. She underwent an EGD and was found to have reflux esophagitis [place] grade B small hiatal hernia, 1 cm in size as well as a moderate gastritis. The patient does have a multitude of medical problems including sarcoidosis, congestive heart failure, COPD and vocal cord injury. She also does have a 18-nhsv-rmav smoking history. She is in need of a screening colonoscopy. She has not had one done before in the past. She does not report any red blood per rectum, nor any dark tarry stools and does not know of any first-degree family history of colon cancer. DESCRIPTION OF PROCEDURE: The patient was brought to the endoscopy suite and laid in left lateral decubitus position. After adequate IV pain and sedative medications and monitored anesthesia care, a digital rectal examination was performed. Chronic stage II external and internal hemorrhoids were identified, which were not actively edematous or inflamed and no bleeding. Normal sphincter tone was felt and there were no palpable masses. Endoscope was then intubated into the anus, rectum and gently insufflated. The endoscope was then advanced through the valves of Banks of the rectum with no polyps or a neoplasm was identified. Through the sigmoid colon, no diverticulosis was identified. The endoscope was then advanced through the remainder of the descending, transverse and ascending colon. At the ascending colon, there were two polyps identified, one at the proximal ascending colon, one at the distal ascending colon. The proximal polyp is approximately 5 mm in size and the distal 1-2 mm in size. The distal polyp was biopsied and destroyed using forceps and electrocautery. The proximal polyp was pedunculated and excised using snare and electrocautery with visualization of good hemostasis. At the proximal colon, there was a poor prep and the polyp could not be identified. The endoscope was then slowly withdrawn while taking a second look and suctioning all residual air with no additional findings. The patient tolerated the procedure well. We will recommend a high-fiber diet with fiber supplementation, which equal or exceed 25 grams daily as well as significant amounts of water to promote soft consistency stools on a daily basis. We will try to retrieve the polyp with an enema and over the toilet screening; however, if this is not identified due to the nature of both of these polyps and the small size, the likelihood of malignancy is small and we will have her follow up for a colonoscopy within the next three years. Job ID: [id number] DocumentID: [id number] Dictated Date: 09/25/2022 13:12:08 Die Cast Operator Date: 09/25/2022 20:41:00 Dictated By: ROBERT ELIZABETH MD
== END ==
LOC: ENDO 11:21
PROVIDERS: ATTEND Surgery
DX: Z12.11 Encounter for screening for malignant neoplasm of colon (principal); D12.2 Benign neoplasm of ascending colon; K64.1 Second degree hemorrhoids; I50.9 Heart failure, unspecified; J44.9 Chronic obstructive pulmonary disease, unspecified; F17.210 Nicotine dependence, cigarettes, uncomplicated; Z79.899 Other long term (current) drug therapy; E66.01 Morbid (severe) obesity due to excess calories; Z68.42 Body mass index [BMI] 45.0-49.9, adult
CPT/HCPCS: 84703

== ENCOUNTER → 2022-10-22 | Outpatient (CLI) | payer MEDICARE, MEDICAID ==
--- NOTE | 2022-10-22 12:11 | Diagnostic Imaging Report ---
PROCEDURE: US Hepatic (Liver). TECHNIQUE: Multiple real-time grayscale images were obtained over the right upper quadrant in various projections. INDICATION: Left hepatic mass seen on CT. COMPARISON: CT abdomen and pelvis of 09/25/2022. FINDINGS: In the anterior aspect left hepatic lobe, there is a 1.7 x 1.5 cm hyperechoic nodule which corresponds to the abnormality seen on CT. The liver is enlarged measuring 21 cm and has mild increased echogenicity most indicative of steatosis. The main portal vein is patent with normal directional flow. Hepatic veins are patent with normal phasicity of flow. Cholecystectomy. The common bile duct measures up to 0.6 cm in diameter. No intrahepatic biliary dilation. The visualized portions of the pancreas are normal. Portions of the head and tail are obscured by overlying bowel gas. The right kidney is normal in size. No hydronephrosis, shadowing calculi, or suspicious mass lesion. IMPRESSION: 1. The lesion in the left hepatic lobe is hyperechoic on ultrasound. This ultrasound feature along with the CT findings highly favor this to represent a benign hemangioma. Consideration could be given to six-month followup CT abdomen without and with IV contrast per the liver protocol to ensure stability. Dictated by: Dictated on workstation # [id number]
== END ==
LOC: RAD 08:11
PROVIDERS: ATTEND Surgery
DX: R16.0 Hepatomegaly, not elsewhere classified (principal)
CPT/HCPCS: 76705

== ENCOUNTER 2022-11-08 17:47 | Emergency (ER) | payer MEDICARE, MEDICAID ==
[~2022-11-08] VITALS: Ht 167.7 cm; Wt 131.5 kg
--- NOTE | 2022-11-08 19:21 | Diagnostic Imaging Report ---
EXAMINATION: Right hand series. INDICATION: Thumb pain and injury. FINDINGS: Alignment of the hand and right thumb appear appropriate. There is no finding of an acute fracture. There is no evidence of a suspicious marrow replacing lesion. There are mild background arthritic changes within the hand including arthritic changes at the 1st metacarpophalangeal joint and mild arthritic changes throughout the interphalangeal joints of the fingers. Note is made of an ulnar minus variant. There is no abnormal lunate sclerosis. IMPRESSION: 1. No finding of right hand or thumb fracture or malalignment. 2. Mild background arthritic changes, as described. These appear most advanced within the 1st metacarpophalangeal joint. Dictated by: Dictated on workstation # [id number]
[2022-11-08] MEDS ORDERED: HYDROcodone/APAP 5 MG/325 MG (LORTAB) TAB PO ONE (19:30)
[2022-11-08] MEDS ORDERED: ACHD5005 PO (19:52)
[2022-11-08] MEDS ORDERED: IBUP-1773 PO (19:53)
--- NOTE | 2022-11-08 19:53 | ED Upper Extremity ---
General Chief Complaint: Upper Extremity Stated Complaint: RIGHT THUMB PAIN Nursing Triage Note: pt ambulatory to room. states she put weight on her right hand yesterday morning to get herself out of a chair when she heard and felt a "pop" in her right thumb area. states she has had pain in her right hand that shoots up her right arm as well since yesterday morning. states the pain has caused her difficulty holding and picking up items. states she has been taking tylenol and ibuprofen around the clock with no relief Source: patient Exam Limitations: no limitations (ALICIA DOZIER) History of Present Illness Date Seen by Provider: Nov 08, 2022 Time Seen by Provider: 18:10 Initial Comments Patient is a 47-year-old female presents ED with right thumb injury. She states yesterday she was attempting to get up when her thumb slipped against a desk and then she heard a "pop" in the right medial thumb. She states pain is sharp rates 10 out of 10. She noted swelling. Pain with any type of movement. Has been taking ibuprofen and Tylenol without much improvement. She also reports ice. No history of previous fracture. (ALICIA DOZIER) Allergies and Home Medications Allergies Coded Allergies: erythromycin base (Verified Allergy, Unknown, PT CAN TAKE AZITHROMYCIN, 06/09/14) minocycline (Verified Adverse Reaction, Mild, N/V, 06/09/14) Patient Home Medication List Home Medication List Reviewed: Yes (ALICIA DOZIER) Albuterol Sulfate (Ventolin Hfa) 90 Mcg Hfa.aer.ad, 2 PUFF IH Q4H PRN for SHORTNESS OF BREATH, (Reported) Entered as Reported by: COURTNEY HARDIN on 07/31/22 1030 Carvedilol (Carvedilol) 3.125 Mg Tablet, 3.125 MG PO BID, (Reported) Entered as Reported by: MONCHO ULRICH on 01/15/21 1422 Clonidine HCl (Clonidine HCl) 0.1 Mg Tablet, 0.1 MG PO BID PRN for ANXIETY, (Reported) Entered as Reported by: MONCHO ULRICH on 01/15/21 1422 Duloxetine HCl (Duloxetine HCl) 60 Mg Capsule.dr, 60 MG PO BID, (Reported) Entered as Reported by: MONCHO ULRICH on 09/26/22 1547 Gabapentin (Gabapentin) 600 Mg Tablet, 600 MG PO BID, (Reported) Entered as Reported by: ANGIE DAVIS on 01/15/21 1359 Hydrocodone/Acetaminophen (Hydrocodone-Acetamin 5-325 mg) 5 Mg-325 Mg Tablet, 1 TAB PO Q4H PRN for PAIN-MODERATE (5-7) Prescribed by: CYNTHIA PADRON on 11/08/221951 Ibuprofen (Ibuprofen) 600 Mg Tablet, 600 MG PO Q6H Prescribed by: CYNTHIA PADRON on 11/08/221952 Levothyroxine Sodium (Levothyroxine Sodium) 50 Mcg Tablet, 50 MCG PO DAILY, (Reported) Entered as Reported by: COURTNEY HARDIN on 07/31/22 1029 Meloxicam (Meloxicam) 7.5 Mg Tablet, 7.5 MG PO HS, (Reported) Entered as Reported by: COURTNEY HARDIN on 07/31/22 1029 Montelukast Sodium (Montelukast Sodium) 10 Mg Tablet, 10 MG PO HS, (Reported) Entered as Reported by: MONCHO ULRICH on 01/15/21 1422 Omeprazole (Omeprazole) 20 Mg Capsule.dr, 20 MG PO HS, (Reported) Entered as Reported by: MONCHO ULRICH on 01/15/21 1422 Tizanidine HCl (Tizanidine HCl) 4 Mg Tablet, 4 MG PO HS, (Reported) Entered as Reported by: COUTRNEY HARDIN on 07/31/22 1029 Review of Systems Constitutional: No chills, No diaphoresis, No fever, No malaise EENTM: No ear pain, No blurred vision, No double vision Respiratory: No cough, No dyspnea on exertion Cardiovascular: No chest pain Gastrointestinal: No abdominal pain, No diarrhea, No nausea, No vomiting Genitourinary: No decreased output, No discharge Musculoskeletal: joint pain, joint swelling Skin: No change in color, No change in hair/nails (ALICIA DOZIER) All Other Systems Reviewed Negative Unless Noted: Yes (ALICIA DOZIER) Past Jijktcd-Qynemw-Iqlsek Hx Patient Social History Tobacco Use?: Yes Tobacco type used: Cigarettes Smoking Status: Current Everyday Smoker Substance use?: No Alcohol Use?: No (ALICIA DOZIER) Immunizations Up To Date Tetanus Booster (TDap): Less than 5yrs Influenza Vaccine Up-to-Date: No; Not Current First/Initial COVID19 Vaccinat: NOW Second COVID19 Vaccination Justin: Third COVID19 Vaccination Date: (ALICIA DOZIER) Seasonal Allergies Seasonal Allergies: No (ALICIA DOZIER) Past Medical History Surgery/Hospitalization HX: COPD, 2L HOME O2 PRN AND AT NIGHT Surgeries: Yes (BACK SX;R knee scope;L vocal cord sx; mediastinoscopy;COLONOSCOPY/POLYPECTOM) Appendectomy, Gallbladder, Orthopedic, Tonsillectomy Respiratory: Yes (sarcoidosis, uses oxygen via nasal cannula continuously) Sleep Apnea, COPD Currently Using CPAP: No Currently Using BIPAP: No Cardiac: Yes (CHF;PULMONARY HTN) Chronic Edema/Swelling, High Cholesterol, Hypertension Neurological: Yes Headaches /Migraines, Neuropathy Reproductive Disorders: No Female Reproductive Disorders: Menstrual Problems, Ovarian Cyst Sexually Transmitted Disease: No HIV/AIDS: No Genitourinary: Yes Renal Failure, UTI-Chronic Gastrointestinal: Yes (FATTY LIVER DISEASE) Gastroesophageal Reflux, Liver Disease/Jaundice, Gastrointestinal Bleed, Polyps, Esophagitis, Hiatal Hernia Musculoskeletal: Yes ( RESTLESS LEG SYNDROME) Arthritis, Fibromyalgia, Chronic Back Pain Endocrine: Yes (MORBID OBESITY) Hypothyroidsim, Diabetes, Non-Insulin dep HEENT: Yes ("VOCAL CORD DYSFUNCTION" ) Dysphagia Cancer: No Psychosocial: Yes (NARCOTIC OVERDOSE 12/2012) Anxiety, Depression Integumentary: Yes (CHRONIC LEFT LEG CELLULITIS) Recent Skin Changes Blood Disorders: No Adverse Reaction/Blood Tranf: No (ALICIA DOZIER) Family Medical History Family history: Hypertension 09 SISTER (43 ) Family history: Thyroid disorder 03 MOTHER (41 ) Stroke 03 FATHER (47 ) Heart Disease, Hypertension SOCIAL HISTORY: -SMOKES 2 PPD -DENIES ETOH -DENIES DRUG USE 09/25/22--COLONOSOCPY + POLYPECTOMY BY DR. ELIZABETH Pre-Operative Diagnosis screening colo Post-Operative Diagnosis chronic stage 2 ext and int hemorrhoids, pedunculated polyp proximal(5mm) and distal(2mm)colon Procedure & Operative Findings Date of Procedure 09/25/22 Procedure Performed/Findings colonoscopy with bx and snare polypectomy (ALICIA DOZIER) Physical Exam Vital Signs Vital Signs - First Documented 11/08/22 11/08/22 18:28 19:58 Temp 36.2 Pulse 85 Resp 22 B/P (MAP) 115/71 (86) Pulse Ox 94 O2 Delivery Room Air (DILCIA YEE MD) Vital Signs Capillary Refill : (ALICIA DOZIER) Height, Weight, BMI Height: 5'6.00" Weight: 310lbs. 8.0oz. 140.251634xi; 46.00 BMI Method:Stated General Appearance: WD/WN, no apparent distress HEENT: PERRL/EOMI, normal ENT inspection, TMs normal, pharynx normal Neck: non-tender, full range of motion, supple, normal inspection Cardiovascular: regular rate, rhythm, no edema, no gallop Respiratory: chest non-tender, normal breath sounds, no respiratory distress Gastrointestinal: normal bowel sounds, non tender, soft, no organomegaly Back: normal inspection, no CVA tenderness Shoulder: normal inspection, non-tender Elbow/Forearm: normal inspection, non-tender, no evidence of injury Wrist: Yes normal inspection, Yes non-tender Hand: Right, bone tenderness (Right proximal first CMC joint tenderness. Tenderness to the first metacarpal and proximal phalanx with mild swelling. Mild laxity noted with valgus stress of the right thumb . ) (ALICIA DOZIER) Procedures/Interventions Suture Size: 5-0 (ALICIA DOZIER) Progress/Results/Core Measures Results/Orders Blood Pressure Mean: 86 Departure Communication (PCP) Patient has tenderness to the CMC joint of the right thumb, first metacarpal, ulnar side of the right proximal phalanx. She does have some mild laxity concerning for UCL sprain vs arthritis. However she has no severe discomfort or pain with this. Ice was applied. Patient Was given dose of pain medication. X- ray was negative for fracture. Arthritic changes noted to the first mcp joint. Patient was placed in a thumb spica Velcro splint. Orthopedic follow-up in 1 to 2 weeks. Will discharge with a few days worth of [place] for breakthrough pain. Continue with ibuprofen. Return precaution were discussed with patient. (ALICIA DOZIER) Impression Primary Impression: Hand pain Disposition: 01 HOME, SELF-CARE Condition: Against Medical Advice Departure-Patient Inst. Decision time for Depature: 19:51 (ALICIA DOZIER) Referrals: [facility] [place] (PCP/Family) Primary Care Physician RIGO HUFFMAN MD, MICHAEL P MD Patient Instructions: Hand Pain Add. Discharge Instructions: Recommend keeping the arm in splint. Orthopedic outpatient follow-up in 7 to 10 days if pain continues. Recommend ice anti-inflammatories. Hydrocodone as needed for breakthrough pain. All discharge instructions reviewed with patient and/or family. Voiced understanding. Scripts Ibuprofen (Ibuprofen) 600 Mg Tablet 600 MG PO Q6H for PAIN, #16 TAB 0 Refills Prov: ALICIA DOZIER 11/08/22 Hydrocodone/Acetaminophen (Hydrocodone-Acetamin 5-325 mg) 5 Mg-325 Mg Tablet 1 TAB PO Q4H PRN for PAIN-MODERATE (5-7), #8 TAB Prov: ALICIA DOZIER 11/08/22 ATTENDING PHYSICIAN NOTE: I was physically present as attending physician in the emergency department during the care of this patient, but I was not directly involved in the decision making or delivery of care for this patient. (DILCIA YEE MD) ALICIA DOZIER Nov 08, 2022 19:53 DILCIA YEE MD Nov 10, 2022 07:03
[2022-11-08 19:58] VITALS: BP 117/74
== END 2022-11-08 19:59 | disposition home or self-care (01) ==
LOC: EDUNIT# 17:47 → ER 17:48
DX: M79.641 Pain in right hand (principal); M79.89 Other specified soft tissue disorders; J44.9 Chronic obstructive pulmonary disease, unspecified; E66.01 Morbid (severe) obesity due to excess calories; F17.210 Nicotine dependence, cigarettes, uncomplicated; Z68.42 Body mass index [BMI] 45.0-49.9, adult; Z99.81 Dependence on supplemental oxygen; X50.1XXA Overexertion from prolonged static or awkward postures, initial encounter
CPT/HCPCS: 73130

== ENCOUNTER 2023-02-05 10:09 | Outpatient (RCR) | payer MEDICARE, MEDICAID ==
[2023-01-27] MEDS: IRON SUCROSE 200 MG/10 ML (VENOFER) VIAL IV SCH (10:43)
[2023-01-27 11:30] VITALS: BP 149/70
[2023-01-29] MEDS: IRON SUCROSE 200 MG/10 ML (VENOFER) VIAL IV SCH (10:11)
[2023-01-29 11:46] VITALS: BP 125/79
[2023-01-31] MEDS: IRON SUCROSE 200 MG/10 ML (VENOFER) VIAL IV SCH (10:08)
[2023-01-31 10:09] VITALS: BP 140/77
[2023-02-03 10:00] VITALS: BP 139/82
[2023-02-03] MEDS: IRON SUCROSE 200 MG/10 ML (VENOFER) VIAL IV SCH (10:17)
[~2023-02-05] VITALS: Ht 167.7 cm; Wt 136.4 kg
[~2023-02-05 10:09] MED LIST changes: +IBUP-1773 PO
[2023-02-05] MEDS: IRON SUCROSE 200 MG/10 ML (VENOFER) VIAL IV SCH (10:10)
[2023-02-05 10:11] VITALS: BP 148/81
== END 2023-02-19 | disposition home or self-care (01) ==
LOC: SDC 10:09
PROVIDERS: ATTEND Nurse Practitioner Family
DX: D64.9 Anemia, unspecified (principal)
CPT/HCPCS: 96365

== ENCOUNTER → 2023-05-19 | Outpatient (CLI) | payer MEDICARE, MEDICAID ==
[2023-05-19 12:58] LABS: CREATININE SERUM 0.8 MG/DL (0.60-1.30)
--- NOTE | 2023-05-19 13:49 | Diagnostic Imaging Report ---
PROCEDURE: CT chest without contrast. TECHNIQUE: Multiple contiguous axial images were obtained through the chest without the use of intravenous contrast. Auto Exposure Controls were utilized during the CT exam to meet ALARA standards for radiation dose reduction. INDICATION: History of sarcoidosis. COPD. COMPARISON: 01/15/2021. FINDINGS: Cardiomediastinal structures again show abnormal dilatation of the main pulmonary arterial trunk. It measures 4.8 cm in diameter. There is also mild cardiomegaly. Small pericardial effusion is also again identified. Multiple enlarged mediastinal lymph nodes are again identified. These are stable as well. AP window lymph node measures 2.6 x 1.8 cm on today's exam, in comparison to similar re-measurements of 2.7 x 1.7 cm on prior exam. Right paratracheal lymph node measures 2.8 x 2.2 cm on today's exam, in comparison to similar re-measurements on the prior study of 2.7 x 2.2 cm. No abnormal axillary adenopathy is seen. The lungs again show diffuse mosaic attenuation with mixed areas of geographic groundglass density. There are also areas of septal thickening. No new focal consolidation is seen. There is no large effusion or pneumothorax. No suspicious pulmonary parenchymal mass is identified. Osseous structures show no new acute abnormalities. Included portions of the upper abdomen are unremarkable as well. IMPRESSION: 1. No new acute cardiopulmonary process. 2. Redemonstration of mild cardiomegaly and small pericardial effusion. 3. Redemonstration of multiple enlarged mediastinal lymph nodes, which may correspond to provided clinical history of sarcoidosis. 4. Redemonstration of enlargement of the main pulmonary arterial trunk suggestive of underlying pulmonary hypertension. 5. Stable crazy-paving appearance to the lungs. This is a nonspecific finding. Alveolar proteinosis, pulmonary edema, and sarcoid are within the differential. Dictated by: Dictated on workstation # [id number]
[2023-05-19 13:57] LABS: ABG BASE EXCESS 5.7 MMOL/L (-2.5-2.5); ABG OXYGEN SATURATION 77 % (94-100); ABG PCO2 51 MMHG (35-45); ABG PH 7.39 (7.37-7.43); ABG PO2 41 MMHG (79-93); ABG TCO2 32.3 MMOL/L (21.0-31.0); ALLENS TEST YES-POS; INSPIRED O2 0; PATIENT TEMP 36.3; VENTILATOR NO
== END ==
LOC: CARD 11:30
PROVIDERS: ATTEND Internal Medicine Critical Care Medicine
DX: J44.9 Chronic obstructive pulmonary disease, unspecified (principal); I27.20 Pulmonary hypertension, unspecified; J96.11 Chronic respiratory failure with hypoxia; D86.9 Sarcoidosis, unspecified; J96.12 Chronic respiratory failure with hypercapnia
CPT/HCPCS: 36415; 36600; 71250; 82565; 82805; 84520; 93306

== ENCOUNTER 2023-06-01 11:24 | Observation (INO) | payer MEDICARE, MEDICAID ==
[~2023-06-01] VITALS: Ht 167 cm; Wt 132.9 kg
[~2023-06-01 11:24] MED LIST changes: -ROPI1TAB PO; +ROPI1TAB46 PO
--- NOTE | 2023-06-01 12:02 | ED Chest Pain ---
General Chief Complaint: Chest Pain Stated Complaint: CHEST PAIN/HEADACHE/BLOOD PRESSURE PROBLEMS Source: patient Exam Limitations: no limitations ([place]) History of Present Illness Date Seen by Provider: Jun 01, 2023 Time Seen by Provider: 11:49 Initial Comments 48 yo F with h/o CHF, COPD, HTN, and NIDDM presents to the ED for c/o new onset chest heaviness and CHACON that started started this morning. Pt states that for the past week she has been experiencing daily chest heaviness and frontal CHACON that radiates down neck. Pt states that these symptoms have been occurring when her blood pressure is elevated. Pt says that she was recently started on lisinopril 1 month ago d/t elevated BP and changed to lisinopril/HCTZ 4 days ago (05/29) due to her BP still being elevated. It was at this appointment that pt states she was told that she had a new heart murmur. This morning, pt states that she was sitting in her chair when she experienced the chest tightness, CHACON, and nausea. Pt states that symptoms this morning were worse than usual, prompting her to come to the ED for further evaluation. BP this morning was "in the 140s". Pt states CHACON is pounding in nature and shoots down "neck and spine" intermittently. CP is midsternal with some radiation to right side of chest. Denies worsening SOA, new cough, abd pain, change in bowel habits, fever, and sick contacts. Pt is on 3L O2 at home that she intermittently wears. Timing/Duration: 1 week, getting worse Severity/Quality: mild Location: central Radiation: other (right chest wall) Activities at Onset: none Prior CP/Workup: no prior chest pain Associated Symptoms: No abdominal pain, No back pain, No diaphoresis, No fever/chills; headache (frontal, throbbing); No shortness of breath ([place]) Allergies and Home Medications Allergies Coded Allergies: erythromycin base (Verified Allergy, Unknown, PT CAN TAKE AZITHROMYCIN, 06/09/14) minocycline (Verified Adverse Reaction, Mild, N/V, 06/09/14) Patient Home Medication List Home Medication List Reviewed: Yes ([place]) Home Medication List Reviewed: Yes (ROBERTO CARLOS JIMENEZ MD) Albuterol Sulfate (Ventolin Hfa) 90 Mcg Hfa.aer.ad, 2 PUFF IH Q4H PRN for SHORTNESS OF BREATH, (Reported) Entered as Reported by: COURTNEY HARDIN on 07/31/22 1030 Last Action: Reviewed Aspirin (Children's Aspirin) 81 Mg Tab.chew, 81 MG PO DAILY Prescribed by: ANGIE DAVIS on 06/03/23 182 Carvedilol (Carvedilol) 6.25 Mg Tablet, 6.25 MG PO BID Prescribed by: ANGIE DAVIS on 06/03/23 182 Clonidine HCl (Clonidine HCl) 0.1 Mg Tablet, 0.1 MG PO BID PRN for ANXIETY, (Reported) Entered as Reported by: MONCHO ULRICH on 01/15/21 142 Last Action: Reviewed Duloxetine HCl (Duloxetine HCl) 60 Mg Capsule.dr, 60 MG PO BID, (Reported) Entered as Reported by: MONCHO ULRICH on 09/26/22 1547 Last Action: Reviewed Gabapentin (Gabapentin) 600 Mg Tablet, 600 MG PO BID, (Reported) Entered as Reported by: ANGIE DAVIS on 01/15/21 1359 Last Action: Reviewed Hydroxyzine HCl (Hydroxyzine HCl) 25 Mg Tablet, 25 MG PO HS PRN for ANXIETY, (Reported) Entered as Reported by: HANDY MCBRIDE on 06/01/231424 Last Action: Reviewed Levothyroxine Sodium (Levothyroxine Sodium) 50 Mcg Tablet, 50 MCG PO DAILY, (Reported) Entered as Reported by: COURTNEY HARDIN on 07/31/22 1029 Last Action: Reviewed Lisinopril/Hydrochlorothiazide (Lisinopril-Hctz 20-12.5 mg Tab) 20 Mg-12.5 Mg Tablet, 1 EA PO DAILY, (Reported) Entered as Reported by: HANDY MCBRIDE on 06/01/23 142 Last Action: Reviewed Meloxicam (Meloxicam) 7.5 Mg Tablet, 7.5 MG PO HS, (Reported) Entered as Reported by: COURTNEY HARDIN on 07/31/22 1029 Last Action: Reviewed Montelukast Sodium (Montelukast Sodium) 10 Mg Tablet, 10 MG PO HS, (Reported) Entered as Reported by: MONCHO ULRICH on 01/15/211421 Last Action: Reviewed Omeprazole (Omeprazole) 20 Mg Capsule.dr, 20 MG PO HS, (Reported) Entered as Reported by: MONCHO ULRICH on 01/15/211421 Last Action: Reviewed Tizanidine HCl (Tizanidine HCl) 4 Mg Tablet, 4 MG PO HS, (Reported) Entered as Reported by: COURTNEY HARDIN on 07/31/22 1029 Last Action: Reviewed Discontinued Medications Carvedilol (Carvedilol) 3.125 Mg Tablet, 3.125 MG PO BID, (Reported) Discontinued Reason: Prescription changed Entered as Reported by: MONCHO ULRICH on 01/15/211421 Last Action: Reviewed Review of Systems Review of Systems Constitutional: no symptoms reported; No chills, No fever EENTM: No Symptoms Reported Respiratory: No Symptoms Reported; Denies Cough, Denies Shortness of Air Cardiovascular: Chest Pain (heaviness) Gastrointestinal: Denies Abdominal Pain, Denies Diarrhea; Nausea (resolved); Denies Vomiting Genitourinary: No Symptoms Reported Musculoskeletal: no symptoms reported Skin: no symptoms reported Psychiatric/Neurological: No Symptoms Reported Endocrine: No Symptoms Reported Hematologic/Lymphatic: No Symptoms Reported ([place]) All Other Systems Reviewed Negative Unless Noted: Yes ([place]) Past Niypifg-Bwpsji-Gkofks Hx Patient Social History Tobacco Use?: Yes Tobacco type used: Cigarettes Smoking Status: Current Everyday Smoker Substance use?: No Alcohol Use?: No ([place]) Immunizations Up To Date Tetanus Booster (TDap): Less than 5yrs First/Initial COVID19 Vaccinat: NOWN Second COVID19 Vaccination Justin: [employer] Third COVID19 Vaccination Date: ([place]) Seasonal Allergies Seasonal Allergies: No ([place]) Past Medical History Surgery/Hospitalization HX: COPD, 3L HOME O2 PRN AND AT NIGHT Surgeries: Yes (BACK SX;R knee scope;L vocal cord sx;mediastinoscopy;COLONOSCOPY/POLYPECTOM) Appendectomy, Gallbladder, Orthopedic, Tonsillectomy Respiratory: Yes (sarcoidosis, uses oxygen via nasal cannula continuously) Sleep Apnea, COPD Currently Using CPAP: No Currently Using BIPAP: No Cardiac: Yes (CHF;PULMONARY HTN) Chronic Edema/Swelling, High Cholesterol, Hypertension Neurological: Yes Headaches /Migraines, Neuropathy Reproductive Disorders: No Female Reproductive Disorders: Menstrual Problems, Ovarian Cyst Sexually Transmitted Disease: No HIV/AIDS: No Genitourinary: Yes Renal Failure, UTI-Chronic Gastrointestinal: Yes (FATTY LIVER DISEASE) Gastroesophageal Reflux, Liver Disease/Jaundice, Gastrointestinal Bleed, Polyps, Esophagitis, Hiatal Hernia Musculoskeletal: Yes ( RESTLESS LEG SYNDROME) Arthritis, Fibromyalgia, Chronic Back Pain Endocrine: Yes (MORBID OBESITY) Hypothyroidsim, Diabetes, Non-Insulin dep HEENT: Yes ("VOCAL CORD DYSFUNCTION" ) Dysphagia Cancer: No Psychosocial: Yes (NARCOTIC OVERDOSE 12/2012) Anxiety, Depression Integumentary: Yes (CHRONIC LEFT LEG CELLULITIS) Recent Skin Changes Blood Disorders: No Adverse Reaction/Blood Tranf: No ([place]) Family Medical History Family history: Hypertension 09 SISTER (43 ) Family history: Thyroid disorder 03 MOTHER (41 ) Stroke 03 FATHER (47 ) Heart Disease, Hypertension SOCIAL HISTORY: -SMOKES 2 PPD -DENIES ETOH -DENIES DRUG USE 09/25/22--COLONOSOCPY + POLYPECTOMY BY DR. ELIZABETH Pre-Operative Diagnosis screening colo Post-Operative Diagnosis chronic stage 2 ext and int hemorrhoids, pedunculated polyp proximal(5mm) and distal(2mm)colon Procedure & Operative Findings Date of Procedure 09/25/22 Procedure Performed/Findings colonoscopy with bx and snare polypectomy ([place]) Physical Exam Vital Signs Vital Signs - First Documented 06/01/23 11:35 Temp 37.1 Pulse 72 Resp 22 B/P (MAP) 141/91 (108) Pulse Ox 95 O2 Delivery Nasal Cannula O2 Flow Rate 3.00 (ROBERTO CARLOS JIMENEZ MD) Vital Signs Capillary Refill : ([place]) Height, Weight, BMI Height: 5'6.00" Weight: 310lbs. 8.0oz. 140.408476iu; 46.00 BMI Method:Stated General Appearance: No Apparent Distress, WD/WN HEENT: PERRL/EOMI Respiratory: No Accessory Muscle Use, No Respiratory Distress, Other (course breath sounds diffusely; some tenderness to palpation over sternum and b/l chest wall) Cardiovascular: Regular Rate, Rhythm, No Murmur Gastrointestinal: Non Tender, Soft Extremity: Non Tender, No Calf Tenderness, Pedal Edema (chronic pitting edema) Neurologic/Psychiatric: Alert, Oriented x3, No Motor/Sensory Deficits, Normal Mood/Affect Skin: Normal Color, Warm/Dry Lymphatic: No Adenopathy ([place]) Procedures/Interventions Suture Size: 5-0 ([place]) Progress/Results/Core Measures Results/Orders Lab Results Laboratory Tests Test 06/01/23 11:45 Range/Units White Blood Count 11.4 H 4.3-11.0 10^3/uL Red Blood Count 5.15 H 3.80-5.11 10^6/uL Hemoglobin 14.8 11.5-16.0 g/dL Hematocrit 48 35-52 % Mean Corpuscular Volume 93 80-99 fL Mean Corpuscular Hemoglobin 29 25-34 pg Mean Corpuscular Hemoglobin Concent 31 L 32-36 g/dL Red Cell Distribution Width 18.9 H 10.0-14.5 % Platelet Count 243 130-400 10^3/uL Mean Platelet Volume 10.5 9.0-12.2 fL Immature Granulocyte % (Auto) 1 % Neutrophils (%) (Auto) 77 H 42-75 % Lymphocytes (%) (Auto) 16 12-44 % Monocytes (%) (Auto) 4 0-12 % Eosinophils (%) (Auto) 1 0-10 % Basophils (%) (Auto) 1 0-10 % Neutrophils # (Auto) 8.8 H 1.8-7.8 10^3/uL Lymphocytes # (Auto) 1.8 1.0-4.0 10^3/uL Monocytes # (Auto) 0.5 0.0-1.0 10^3/uL Eosinophils # (Auto) 0.2 0.0-0.3 10^3/uL Basophils # (Auto) 0.1 0.0-0.1 10^3/uL Immature Granulocyte # (Auto) 0.1 0.0-0.1 10^3/uL Prothrombin Time 13.6 12.2-14.7 SEC INR Comment 1.0 0.8-1.4 Activated Partial Thromboplast Time 34 24-35 SEC D-Dimer 0.32 0.00-0.49 UG/ML Sodium Level 140 135-145 MMOL/L Potassium Level 3.3 L 3.6-5.0 MMOL/L Chloride Level 99 98-107 MMOL/L Carbon Dioxide Level 27 21-32 MMOL/L Anion Gap 14 5-14 MMOL/L Blood Urea Nitrogen 9 7-18 MG/DL Creatinine 0.80 0.60-1.30 MG/DL Estimat Glomerular Filtration Rate 91 BUN/Creatinine Ratio 11 Glucose Level 107 H 70-105 MG/DL Calcium Level 9.6 8.5-10.1 MG/DL Corrected Calcium 9.7 8.5-10.1 MG/DL Magnesium Level 1.9 1.6-2.4 MG/DL Total Bilirubin 0.5 0.1-1.0 MG/DL Aspartate Amino Transf (AST/SGOT) 13 5-34 U/L Alanine Aminotransferase (ALT/SGPT) 9 0-55 U/L Alkaline Phosphatase 183 H 40-136 U/L Troponin I 0.031 H <0.028 NG/ML Total Protein 7.1 6.4-8.2 GM/DL Albumin 3.9 3.2-4.5 GM/DL (ROBERTO CARLOS JIMENEZ MD) My Orders Orders - ROBERTO CARLOS JIMENEZ MD Ekg Tracing (06/01/23 11:35) Cbc With Automated Diff (06/01/23 11:57) Magnesium (06/01/23 11:57) Chest 1 View, Ap/Pa Only (06/01/23 11:57) Comprehensive Metabolic Panel (06/01/23 11:57) Protime With Inr (06/01/23 11:57) Partial Thromboplastin Time (06/01/23 11:57) O2 (06/01/23 11:57) Monitor-Rhythm Ecg Trace Only (06/01/23 11:57) Lipid Panel (06/02/23 06:00) Ed Iv/Invasive Line Start (06/01/23 11:57) Troponin I Esau (06/01/23 11:57) Ketorolac Injection (Ketorolac Injection (06/01/23 12:30) Aspirin Chewable Tablet (Aspirin Chewabl (06/02/23 09:00) Fibrin Degradation Products (06/01/23 12:50) Enoxaparin Injection (Enoxaparin Injecti (06/01/23 13:00) Aspirin Chewable Tablet (Aspirin Chewabl (06/01/23 13:03) Ed Admission (Communication) (06/01/23 13:49) (ROBERTO CARLOS JIMENEZ MD) Medications Given in ED (ROBERTO CARLOS JIMENEZ MD) Vital Signs/I&O 06/01/23 06/01/23 11:35 11:35 Temp 37.1 Pulse 72 Resp 22 B/P (MAP) 141/91 (108) Pulse Ox 95 96 O2 Delivery Nasal Cannula O2 Flow Rate 3.00 (ROBERTO CARLOS JIMENEZ MD) Progress Progress Note : Time: 12:21 Progress Note Patient seen and evaluated by me. I have reviewed the medical student's documentation and agree. Evaluation today includes physical exam and "chest pain protocol". Pertinent physical exam findings well-developed well-nourished obese female in no acute distress. Heart is regular, lungs are clear. She does have 2+ pitting edema of the bilateral lower extremities. The rest of her exam is unremarkable. Her vital signs are stable. Differential diagnosis based on history and physical exam hypertensive urgency, NSTEMI, viral syndrome, tension type headache Labs, EKG independently reviewed and interpreted by me. Her CBC Shows a total WBC of 11.4 with normal h&h. normal platelets. 77% segs. Chem pertinent for slightly low potassium at 3.3. Troponin minimally abvoe baseline at 0.031. Normal coags and ddimer. CXR consistent with cardiomegaly and some increased pulmonary vascular congestion (per radiologist). EKG NSR without ectopy - she has some NSSTW depression in leads V4 and V5. Patient was treated initially with some IV toradol - 15mg. Once her troponin resulted, she was given 324mg of aspirin and I contacted the resident on for the [facility] - Dr Matos and crown and bridge dental lab technician - Dr Hernandez - for admission. Patient stated the toradol helped her pain. Concern for NSTEMI. Patient to be admitted for serial enzymes and possible cath. (ROBERTO CARLOS JIMENEZ MD) Initial ECG Impression Date: Jun 01, 2023 Initial ECG Impression Time: 11:41 Initial ECG Rate: 75 Initial ECG Rhythm: Normal Sinus Initial ECG Intervals MO 146 QRS 104 QTc 405 Comment Normal sinus rhythm with right bundle branch block, nonspecific ST-T wave changes V4 and V5. Occasional PVCs noted. (ROBERTO CARLOS JIMENEZ MD) Diagnostic Imaging Diagonstic Imaging: Xray Plain Films/CT/US/NM/MRI: chest Comments [facility]. [place], [place] NAME: TUAN ORANTES [facility] REC#: [id number] PT STATUS: REG ER : 1975 PHYSICIAN: ROBERTO CARLOS JIMENEZ MD ADMIT DATE: 06/01/23/ER Draft Date of Exam:06/01/23 CHEST 1 VIEW, AP/PA ONLY INDICATION: Chest pain. COMPARISON: 04/19/2021. DISCUSSION: Single portable upright view of the chest was obtained. Exam is limited due to technique and patient body habitus. Marked cardiomegaly is stable. Bilateral mixed interstitial and alveolar infiltrates are new suggesting severe pulmonary edema. No pleural fluid or pneumothorax. No osseous abnormality. IMPRESSION: 1. Stable cardiomegaly with suspected new severe pulmonary edema. Dictated on workstation # [id number] Dict: 06/01/23 1212 Trans: 06/01/23 1221 [id number] Interpreted by: YAMILETH BAE MD Electronically signed by: Chest x-ray single view independently reviewed and interpreted by me. Cardiomegaly, breast attenuation, do not suspect severe pulmonary edema as I have the added benefit of clinical exam which does not support (ROBERTO CARLOS JIMENEZ MD) Departure Communication (Admissions) Time/Spoke to Admitting Phy: 12:[address] Matos, resident on-call who accepts patient for admission cardiac stepdown Time/Spoke to Consulting Phy: 12:[address] Hernandez recommends 3-hour troponin, echocardiogram in a.m. and repeat troponin. (ROBERTO CARLOS JIMENEZ MD) Impression Primary Impression: Chest pain Qualified Codes: R07.9 - Chest pain, unspecified Additional Impression: Elevated troponin Disposition: ADMITTED INPATIENT Condition: Stable Admissions Decision to Admit Reason: Admit from ER (General) Decision to Admit/Date: Jun 01, 2023 Time/Decision to Admit Time: 12:52 (ROBERTO CARLOS JIMENEZ MD) Departure-Patient Inst. Referrals: [facility] (PCP/Family) Primary Care Physician Scripts Aspirin (Children's Aspirin) 81 Mg Tab.chew 81 MG PO DAILY, #30 TAB 0 Refills Prov: ANGIE DAVIS MD 06/03/23 Carvedilol (Carvedilol) 6.25 Mg Tablet 6.25 MG PO BID, #60 TAB 0 Refills Prov: ANGIE DAVIS MD 06/03/23 Verification and Attestation of Medical Student E/M Service A medical student performed and documented this service in my presence. I reviewed and verified all information documented by the medical student and made modifications to such information, when appropriate. I personally performed the physical exam and medical decision making. Roberto Carlos Jimenez, Jun 04, 2023,02:16 (ROBERTO CARLOS JIMENEZ MD) [place] Jun 01, 2023 12:02 ROBERTO CARLOS JIMENEZ MD Jun 01, 2023 12:22
[2023-06-01 12:08] LABS: BASOPHILS # (AUTO) 0.1 10^3/uL (0.0-0.1); BASOPHILS % (AUTO) 1 % (0-10); EOSINOPHILS # (AUTO) 0.2 10^3/uL (0.0-0.3); EOSINOPHILS % (AUTO) 1 % (0-10); HEMATOCRIT 48 % (35-52); HEMOGLOBIN 14.8 g/dL (11.5-16.0); LYMPHOCYTES # (AUTO) 1.8 10^3/uL (1.0-4.0); LYMPHOCYTES % (AUTO) 16 % (12-44); MEAN CORPUSCULAR HEMOGLOBIN 29 pg (25-34); MEAN CORPUSCULAR HGB CONC 31 g/dL (32-36); MEAN CORPUSCULAR VOLUME 93 fL (80-99); MEAN PLATELET VOLUME 10.5 fL (9.0-12.2); MONOCYTES # (AUTO) 0.5 10^3/uL (0.0-1.0); MONOCYTES % (AUTO) 4 % (0-12); NEUTROPHILS # (AUTO) 8.8 10^3/uL (1.8-7.8); NEUTROPHILS % (AUTO) 77 % (42-75); PLATELET COUNT 243 10^3/uL (130-400); WHITE BLOOD COUNT 11.4 10^3/uL (4.3-11.0)
[2023-06-01 12:13] LABS: PROTHROMBIN TIME PATIENT 13.6 SEC (12.2-14.7)
[2023-06-01 12:19] LABS: ALBUMIN 3.9 GM/DL (3.2-4.5); BILIRUBIN,TOTAL 0.5 MG/DL (0.1-1.0); CALCIUM 9.6 MG/DL (8.5-10.1); CREATININE SERUM 0.8 MG/DL (0.60-1.30); MAGNESIUM 1.9 MG/DL (1.6-2.4); POTASSIUM 3.3 MMOL/L (3.6-5.0); TOTAL PROTEIN 7.1 GM/DL (6.4-8.2)
--- NOTE | 2023-06-01 12:22 | Diagnostic Imaging Report ---
INDICATION: Chest pain. COMPARISON: 04/19/2021. DISCUSSION: Single portable upright view of the chest was obtained. Exam is limited due to technique and patient body habitus. Marked cardiomegaly is stable. Bilateral mixed interstitial and alveolar infiltrates are new suggesting severe pulmonary edema. No pleural fluid or pneumothorax. No osseous abnormality. IMPRESSION: 1. Stable cardiomegaly with suspected new severe pulmonary edema. Dictated by: Dictated on workstation # [id number]
[2023-06-01] MEDS ORDERED: KETOROLAC INJ 15 MG/ML VIAL IVP ONE (12:30)
[2023-06-01] MEDS ORDERED: ORPHENADRINE 60 MG/2 ML AMP (ED ONLY) IM ONE (12:30)
[2023-06-01] MEDS ORDERED: ENOXAPARIN 120 MG/0.8 ML SYRINGE SQ ONE (13:00)
[2023-06-01] MEDS ORDERED: ASPIRIN 81 MG CHEWABLE TABLET ONE (13:03)
[2023-06-01] MEDS: ASPIRIN 81 MG CHEWABLE TABLET PO SCH (13:04)
--- NOTE | 2023-06-01 13:07 | History & Physical-Hospitalist ---
JASMINE MELÉNDEZ MD 06/01/23 1307: History of Present Illness HPI/Chief Complaint Pt is a 48 yo female with a medical history significant for COPD, HTN, h ypothyroidism who presented to the ED with chest pressure. She reports that this morning she felt an increase in chest pressure that did not radiate. She denies associated symptoms of SOB, vision changes, N/V/D and does report having headaches in the last few days out of the ordinary for her. Her EKG showed nonspecific ST, T abnormalities, Trop was slightly elevated. She was admitted for further work-up of possible ACS. Source: patient Date Seen 06/01/23 Time Seen by a Provider: 15:00 Attending Physician [place] PCP Admitting Physician: Attending Physician: Referring Physician Date of Admission Home Medications & Allergies Home Medications Reviewed patient Home Medication Reconciliation performed by pharmacy medication reconciliations specimen technician and/or nursing. Patients Allergies have been reviewed. Allergies Allergies Coded Allergies erythromycin base (Verified Allergy, Unknown, PT CAN TAKE AZITHROMYCIN, 06/09/14) minocycline (Verified Adverse Reaction, Mild, N/V, 06/09/14) Past Oakmbco-Tumnrf-Vtfxqg Hx Patient Social History Tobacco Use?: Yes Tobacco type used: Cigarettes Smoking Status: Current Everyday Smoker Substance use?: No Alcohol Use?: No Pt feels they are or have been: No Immunizations Up To Date Date of Influenza Vaccine: Jun 22, 2016 First/Initial COVID19 Vaccinat: [place] Second COVID19 Vaccination Justin: [facility] Tetanus Booster (TDap): Less Than 5 Years Date of Pneumonia Vaccine: Jun 22, 2016 Seasonal Allergies Seasonal Allergies: No Current Status Advance Directives: No Primary Language: Citizen Of [place] Preferred Spoken Language: Citizen Of [place] Past Medical History Surgeries: Appendectomy, Gallbladder, Orthopedic, Tonsillectomy Sleep Apnea, COPD Currently Using CPAP: No Currently Using BIPAP: No Chronic Edema/Swelling, High Cholesterol, Hypertension Headaches /Migraines, Neuropathy Sexually Transmitted Disease: No HIV/AIDS: No Renal Failure, UTI-Chronic Gastroesophageal Reflux, Liver Disease/Jaundice, Gastrointestinal Bleed, Polyps, Esophagitis, Hiatal Hernia Arthritis, Fibromyalgia, Chronic Back Pain Hypothyroidsim, Diabetes, Non-Insulin dep Dysphagia Anxiety, Depression Recent Skin Changes Blood Disorders: No Adverse Reaction/Blood Tranf: No PMHx: Sarcoidosis COPD Hypoventilation with chronic CO2 retention DMII Chronic edema Chronic pain s/p back surgery Hyperlipidemia Hypothyroidism Vocal cord paralysis CHF Neuropathy Migraines GERD Restless leg syndrome Surgeries: Back surgery, right knee arthroscopy, cholecystectomy, appendectomy, right ovarian cyst, vocal cord surgery for paralyzed vocal cords Family Medical History Family history: Hypertension 09 SISTER (43 ) Family history: Thyroid disorder 03 MOTHER (41 ) Stroke 03 FATHER (47 ) Heart Disease, Hypertension SOCIAL HISTORY: -SMOKES 2 PPD -DENIES ETOH -DENIES DRUG USE 09/25/22--COLONOSOCPY + POLYPECTOMY BY DR. ELIZABETH Pre-Operative Diagnosis screening colo Post-Operative Diagnosis chronic stage 2 ext and int hemorrhoids, pedunculated polyp proximal(5mm) and distal(2mm)colon Procedure & Operative Findings Date of Procedure 09/25/22 Procedure Performed/Findings colonoscopy with bx and snare polypectomy Review of Systems Constitutional: see HPI EENTM: no symptoms reported Respiratory: dyspnea on exertion Cardiovascular: chest pain, edema Skin: no symptoms reported Physical Exam Physical Exam Vital Signs Vital Signs - First Documented 06/01/23 06/01/23 11:35 15:36 Temp 37.1 Pulse 72 Resp 22 B/P (MAP) 141/91 (108) Pulse Ox 95 O2 Delivery Nasal Cannula O2 Flow Rate 3.00 FiO2 32 Capillary Refill : Less Than 3 Seconds Height, Weight, BMI Height: 5'6.00" Weight: 310lbs. 8.0oz. 140.554658fi; 46.00 BMI Method:Stated General Appearance: No Apparent Distress Neck: Full Range of Motion Respiratory: Chest Non Tender, Lungs Clear, Normal Breath Sounds Cardiovascular: Regular Rate, Rhythm, No Murmur Extremity: Pedal Edema Neurologic/Psychiatric: Alert, Oriented x3, No Motor/Sensory Deficits Skin: Normal Color, Warm/Dry Results Results/Procedures Labs Laboratory Tests 06/01/23 11:45 Patient resulted labs reviewed. Assessment/Plan Admission Diagnosis chest pain Admission Status: Observation Reason for Inpatient Admission: Chest pain Diagnosis/Problems Diagnosis/Problems (1) Chest pain Status: Acute Assessment & Plan: Pt with acute onset chest pressure H/o normal stress tests, cardiac caths Trop 0.031-->0.052 PLAN: Monitor on telemetry Cardiology consult Trend troponin Echo report pending; Pt reports echo on May 19 at [place], [facility] reconcile records Qualifiers: Chest pain type: unspecified Qualified Codes: R07.9 - Chest pain, unspecified (2) HTN (hypertension) Status: Acute Assessment & Plan: PLAN: Placed on home medications (3) Sarcoidosis (4) COPD (chronic obstructive pulmonary disease) Status: Acute Assessment & Plan: Pt reports being on home O2, however she does not use it PLAN: Supplemental O2 as required RT protocol treatments if needed Clinical Quality Measures AMI/AHF: ASA po Prior to arrival: No MAURO WIN DO 06/01/23 2018: History of Present Illness HPI/Chief Complaint CC: CP HPI: This is a 48yoWF clinic patient of [facility] who presented to ER with chest pain suspicious for ACS so she was admitted for r/o elevated trop. Source: patient Exam Limitations: no limitations Past Efzgexy-Icbusg-Nwyqpc Hx Patient Social History Marrital Status: single Employed/Student: part-time employed Smoking Status: Former Smoker Past Medical History High Cholesterol, Hypertension Family Medical History Family history: Hypertension 09 SISTER (43 ) Family history: Thyroid disorder 03 MOTHER (41 ) Stroke 03 FATHER (47 ) Review of Systems Constitutional: see HPI Cardiovascular: chest pain Physical Exam Physical Exam General Appearance: No Apparent Distress, Chronically ill Respiratory: Lungs Clear, Normal Breath Sounds Cardiovascular: Regular Rate, Rhythm Neurologic/Psychiatric: Alert, Oriented x3 Assessment/Plan Admission Diagnosis Chest pain Cards c/s Admission Status: Observation JASMINE MELÉNDEZ MD Jun 01, 2023 13:07 MAURO WIN DO Jun 01, 2023 20:18
[2023-06-01] MEDS ORDERED: LACTATED RINGERS 1,000 ML 1,000 ML IV SCH (14:15)
[2023-06-01] MEDS ORDERED: ONDANSETRON 4 MG ORAL DISSOLVE TABLET PO PRN (14:15)
[2023-06-01] MEDS ORDERED: MELATONIN 3 MG TABLET PO PRN (14:15)
[2023-06-01] MEDS ORDERED: ONDANSETRON INJECTION 4 MG/2 ML (SDV) IV PRN (14:15)
[2023-06-01] MEDS ORDERED: CALCIUM CARBONATE 500 MG CHEW TABLET PO PRN (14:15)
[2023-06-01] MEDS ORDERED: ENOXAPARIN 100 MG/1 ML SYRINGE SC SCH (14:15)
[2023-06-01 14:17] VITALS: BP 128/70
[2023-06-01] MEDS ORDERED: LISI1TAB46 PO (14:25)
[2023-06-01] MEDS ORDERED: HYDR-700 PO (14:25)
[2023-06-01 15:00] VITALS: BP 130/65
[2023-06-01] MEDS ORDERED: NS IV 500 ML 500 ML IV PRN (15:00)
[2023-06-01] MEDS ORDERED: POTASSIUM CHLORIDE 20 MEQ TABLET PO NR ×2 (15:15→18:00)
[2023-06-01 15:36] VITALS: BP 141/91
[2023-06-01 16:00] VITALS: BP 152/86
[2023-06-01] MEDS ORDERED: RT-ALBUTEROL SULF 2.5 MG/3 ML PRE-MIX VIAL INH PRN (16:00)
[2023-06-01 16:55] VITALS: BP 125/76
[2023-06-01] MEDS: ACETAMINOPHEN 500 MG TABLET PO SCH (17:53)
[2023-06-01] MEDS: RT-ALBUTEROL SULF 2.5 MG/3 ML PRE-MIX VIAL INH SCH ×2 (19:20→21:53)
[2023-06-01 20:00] VITALS: BP 119/55
[2023-06-01] MEDS ORDERED: NITROGLYCERIN 2% OINT 1 GM UNIT DOSE PACKET ONE (21:20)
[2023-06-01] MEDS: SENNOSIDES 8.6 MG TABLET PO SCH (21:22)
[2023-06-01] MEDS: carvediloL 3.125 MG TABLET PO SCH (21:32)
[2023-06-01] MEDS: IBUPROFEN 600 MG TABLET PO SCH (21:32)
[2023-06-01] MEDS: NITROGLYCERIN 2% OINT 1 GM UNIT DOSE PACKET TOP SCH (23:56)
[2023-06-02] VITALS: BP 147/99
[2023-06-02] MEDS: ACETAMINOPHEN 500 MG TABLET PO SCH ×4 (00:01→17:36)
[2023-06-02] MEDS: ENOXAPARIN 300 MG/3 ML MULTI-DOSE VIAL SQ SCH ×2 (00:11→13:19)
[2023-06-02] MEDS: RT-ALBUTEROL SULF 2.5 MG/3 ML PRE-MIX VIAL INH SCH ×5 (03:07→18:38)
[2023-06-02 03:40] VITALS: BP 132/81
[2023-06-02 04:47] LABS: HEMATOCRIT 46 % (35-52); HEMOGLOBIN 13.8 g/dL (11.5-16.0); MEAN CORPUSCULAR HEMOGLOBIN 28 pg (25-34); MEAN CORPUSCULAR HGB CONC 30 g/dL (32-36); MEAN CORPUSCULAR VOLUME 94 fL (80-99); MEAN PLATELET VOLUME 10.8 fL (9.0-12.2); PLATELET COUNT 212 10^3/uL (130-400); WHITE BLOOD COUNT 8.1 10^3/uL (4.3-11.0)
[2023-06-02 05:00] LABS: ALBUMIN 3.5 GM/DL (3.2-4.5); BILIRUBIN,TOTAL 0.4 MG/DL (0.1-1.0); CALCIUM 9.6 MG/DL (8.5-10.1); CREATININE SERUM 0.74 MG/DL (0.60-1.30); MAGNESIUM 1.8 MG/DL (1.6-2.4); POTASSIUM 3.6 MMOL/L (3.6-5.0); TOTAL PROTEIN 6.3 GM/DL (6.4-8.2)
[2023-06-02] MEDS: MAGNESIUM 1 GM/100 ML IVPB 100 ML IV SCH (05:11)
[2023-06-02] MEDS: POTASSIUM CL 10MEQ/50ML IVPB 50 ML IV SCH (05:11)
[2023-06-02] MEDS: POTASSIUM CHLORIDE 20 MEQ TABLET PO SCH (05:11)
[2023-06-02] MEDS: IBUPROFEN 600 MG TABLET PO SCH ×4 (06:10→20:34)
[2023-06-02] MEDS: NITROGLYCERIN 2% OINT 1 GM UNIT DOSE PACKET TOP SCH ×3 (06:10→17:35)
[2023-06-02] MEDS: LEVOTHYROXINE 50 MCG TABLET PO SCH (06:10)
[2023-06-02 07:55] VITALS: BP 146/97
[2023-06-02] MEDS: carvediloL 3.125 MG TABLET PO SCH ×2 (08:10→20:34)
[2023-06-02] MEDS: SENNOSIDES 8.6 MG TABLET PO SCH ×2 (08:16→20:40)
[2023-06-02] MEDS ORDERED: POTASSIUM CHLORIDE 20 MEQ TABLET PO ONE (09:00)
[2023-06-02] MEDS ORDERED: cloNIDine 0.1 MG TABLET PO PRN (10:30)
--- NOTE | 2023-06-02 10:30 | Progress Note ---
Subjective Subjective/Events-last exam Has severe headache, still has persistent chest pressure. Denies fever, cough, worsened shortness of breath. Uses 2-3 lpm supplemental O2 at home. Objective Exam Last Set of Vital Signs Vital Signs Date Time Temp Pulse Resp B/P (MAP) Pulse Ox O2 Delivery O2 Flow Rate FiO2 06/02/23 07:55 36.1 64 18 146/97 (113) 93 Nasal Cannula 06/02/23 07:28 3.50 06/01/23 15:36 32 Capillary Refill : Less Than 3 Seconds I&O Intake and Output 06/02/23 00:00 Intake Total 250 ml Balance 250 ml Intake Oral 250 ml # Voids 1 General: Alert, No Acute Distress Lungs: Clear to Auscultation Heart: Regular Rate Extremities: No Edema Psych/Mental Status: Mental Status NL Results/Procedures Lab Laboratory Tests 06/01/23 11:45: White Blood Count 11.4H, Red Blood Count 5.15H, Hemoglobin 14.8, Hematocrit 48, Mean Corpuscular Volume 93, Mean Corpuscular Hemoglobin 29, Mean Corpuscular Hemoglobin Concent 31L, Red Cell Distribution Width 18.9H, Platelet Count 243, Mean Platelet Volume 10.5, Immature Granulocyte % (Auto) 1, Neutrophils (%) (Auto) 77H, Lymphocytes (%) (Auto) 16, Monocytes (%) (Auto) 4, Eosinophils (%) (Auto) 1, Basophils (%) (Auto) 1, Neutrophils # (Auto) 8.8H, Lymphocytes # (Auto) 1.8, Monocytes # (Auto) 0.5, Eosinophils # (Auto) 0.2, Basophils # (Auto) 0.1, Immature Granulocyte # (Auto) 0.1, Prothrombin Time 13.6, INR Comment 1.0, Activated Partial Thromboplast Time 34, D-Dimer 0.32, Sodium Level 140, Potassium Level 3.3L, Chloride Level 99, Carbon Dioxide Level 27, Anion Gap 14, Blood Urea Nitrogen 9, Creatinine 0.80, Estimat Glomerular Filtration Rate 91, BUN/Creatinine Ratio 11, Glucose Level 107H, Calcium Level 9.6, Corrected Calcium 9.7, Magnesium Level 1.9, Total Bilirubin 0.5, Aspartate Amino Transf (AST/SGOT) 13, Alanine Aminotransferase (ALT/SGPT) 9, Alkaline Phosphatase 183H, Troponin I 0.031H, Total Protein 7.1, Albumin 3.9 06/01/23 17:40: Troponin I 0.052H 06/02/23 03:35: White Blood Count 8.1, Red Blood Count 4.95, Hemoglobin 13.8, Hematocrit 46, Mean Corpuscular Volume 94, Mean Corpuscular Hemoglobin 28, Mean Corpuscular Hemoglobin Concent 30L, Red Cell Distribution Width 18.6H, Platelet Count 212, Mean Platelet Volume 10.8, Sodium Level 143, Potassium Level 3.6, Chloride Level 102, Carbon Dioxide Level 32, Anion Gap 9, Blood Urea Nitrogen 8, Creatinine 0.74, Estimat Glomerular Filtration Rate 100, BUN/Creatinine Ratio 11, Glucose Level 90, Calcium Level 9.6, Corrected Calcium 10.0, Magnesium Level 1.8, Total Bilirubin 0.4, Aspartate Amino Transf (AST/SGOT) 14, Alanine Aminotransferase (ALT/SGPT) 9, Alkaline Phosphatase 166H, Total Protein 6.3L, Albumin 3.5, Triglycerides Level 127, Cholesterol Level 133, LDL Cholesterol Direct 82, VLDL Cholesterol 25, HDL Cholesterol 32L Assessment/Plan Assessment/Plan (1) Elevated troponin Status: Acute Assessment & Plan: Trended up, appreciate Cardiology recommendations. (2) Chest pain Status: Acute Assessment & Plan: Concerning for possible ACS, appreciate Cardiology recommendations. Qualifiers: Qualified Codes: R07.9 - Chest pain, unspecified (3) HTN (hypertension) Status: Acute (4) Sarcoidosis (5) COPD (chronic obstructive pulmonary disease) Status: Acute (6) Oxygen dependent Status: Chronic (7) DVT prophylaxis Status: Acute Assessment & Plan: Enoxaparin Clinical Quality Measures AMI/AHF: ASA po Prior to arrival: ANGIE Paulson MD Jun 02, 2023 10:30
[2023-06-02] MEDS ORDERED: hydrOXYzine 25 MG CAPSULE PO PRN ×2 (10:45→11:00)
[2023-06-02] MEDS: DULoxetine 30 MG CAPSULE PO SCH ×2 (11:17→20:34)
[2023-06-02 11:47] VITALS: BP 141/93
--- NOTE | 2023-06-02 13:01 | Consultation-Cardiology ---
HPI-Cardiology Cardiology Consultation Date of Consultation 06/02/23 Date of Admission Time Seen by Provider: 15:00 Indication: Chest pain HPI 48-year-old lady with history of hypertension, poorly controlled, tobaccoism and severe COPD. Patient reported that her blood pressure was over 200 at home and she started to have chest pressure. Came into the emergency room. Had minimal EKG changes and minimal elevation in troponin, this morning she was sitting in bed, asking to go home, denied any active chest pain, currently on oxygen. Home Medications & Allergies Allergies: Coded Allergies: erythromycin base (Verified Allergy, Unknown, PT CAN TAKE AZITHROMYCIN, 06/09/14) minocycline (Verified Adverse Reaction, Mild, N/V, 06/09/14) Home Medication List Reviewed: Yes [id number] Hx Patient Social History Marital Status: single Employed/Student: part-time employed Drug of Choice: NARCOTIC OVERDOSE IN PAST Smoking Status: Former Smoker Former smoker/When Quit: Nov 21, 2013 Type Used: Cigarettes 2nd Hand Smoke Exposure: Yes Recent Hopitalizations: No Alcohol Use?: No Immunizations Up To Date Tetanus Booster (TDap): Less than 5yrs Date of Pneumonia Vaccine: Jun 22, 2016 Date of Influenza Vaccine: Jun 22, 2016 Past Medical History Discussed below Family Medical History Significant Family History: Heart Disease, Hypertension Family History: Family history: Hypertension 09 SISTER (43 ) Family history: Thyroid disorder 03 MOTHER (41 ) Stroke 03 FATHER (47 ) Review of Systems-General Review of Systems Constitutional: see HPI EENTM: no symptoms reported Respiratory: dyspnea on exertion Cardiovascular: see HPI, chest pain; No edema, No Hx of Intervention, No palpitations, No syncope, No vascular heart diseas, No other Gastrointestinal: no symptoms reported, see HPI Genitourinary: no symptoms reported, see HPI Musculoskeletal: no symptoms reported Skin: no symptoms reported Psychiatric/Neurological: No Symptoms Reported All Other Systems Reviewed Negative Unless Noted: Yes Reviewed Test Results Reviewed Test Results Lab Laboratory Tests Test 06/01/23 17:40 06/02/23 03:35 Range/Units Troponin I 0.052 H <0.028 NG/ML White Blood Count 8.1 4.3-11.0 10^3/uL Red Blood Count 4.95 3.80-5.11 10^6/uL Hemoglobin 13.8 11.5-16.0 g/dL Hematocrit 46 35-52 % Mean Corpuscular Volume 94 80-99 fL Mean Corpuscular Hemoglobin 28 25-34 pg Mean Corpuscular Hemoglobin Concent 30 L 32-36 g/dL Red Cell Distribution Width 18.6 H 10.0-14.5 % Platelet Count 212 130-400 10^3/uL Mean Platelet Volume 10.8 9.0-12.2 fL Sodium Level 143 135-145 MMOL/L Potassium Level 3.6 3.6-5.0 MMOL/L Chloride Level 102 98-107 MMOL/L Carbon Dioxide Level 32 21-32 MMOL/L Anion Gap 9 5-14 MMOL/L Blood Urea Nitrogen 8 7-18 MG/DL Creatinine 0.74 0.60-1.30 MG/DL Estimat Glomerular Filtration Rate 100 BUN/Creatinine Ratio 11 Glucose Level 90 70-105 MG/DL Calcium Level 9.6 8.5-10.1 MG/DL Corrected Calcium 10.0 8.5-10.1 MG/DL Magnesium Level 1.8 1.6-2.4 MG/DL Total Bilirubin 0.4 0.1-1.0 MG/DL Aspartate Amino Transf (AST/SGOT) 14 5-34 U/L Alanine Aminotransferase (ALT/SGPT) 9 0-55 U/L Alkaline Phosphatase 166 H 40-136 U/L Total Protein 6.3 L 6.4-8.2 GM/DL Albumin 3.5 3.2-4.5 GM/DL Triglycerides Level 127 <150 MG/DL Cholesterol Level 133 < 200 MG/DL LDL Cholesterol Direct 82 1-129 MG/DL VLDL Cholesterol 25 5-40 MG/DL HDL Cholesterol 32 L 40-60 MG/DL Physical Exam Physical Exam Vital Signs Vital Signs - First Documented 06/01/23 06/01/23 11:35 15:36 Temp 37.1 Pulse 72 Resp 22 B/P (MAP) 141/91 (108) Pulse Ox 95 O2 Delivery Nasal Cannula O2 Flow Rate 3.00 FiO2 32 Capillary Refill : Less Than 3 Seconds Height, Weight, BMI Height: 5'6.00" Weight: 310lbs. 8.0oz. 140.801502kh; 48.33 BMI Method:Stated General Appearance: No Apparent Distress, Chronically ill HEENT: PERRL/EOMI Neck: Full Range of Motion Respiratory: Lungs Clear, Normal Breath Sounds Cardiovascular: Regular Rate, Rhythm Gastrointestinal: Non Tender, Soft Extremity: Pedal Edema Neurologic/Psychiatric: Alert, Oriented x3 Skin: Normal Color, Warm/Dry Lymphatic: No Adenopathy A/P-Cardiology Admission Diagnosis Chest pain Labile hypertension COPD Dyspnea Assessment/Plan Chest pain nonspecific etiology, history of chronic chest pain, Extensive cardiac work-up was done in the past and it was negative. Currently have T wave inversion in the anterior lateral leads with minimal tro ponin elevation which could be secondary to LVH and hypertensive urgency. I will continue monitoring troponin and planning to repeat cardiac catheterization possible PTCA Cardiac catheterization done in October 2013 showing normal coronary arteries. Stress test done in 2015 showing no ischemia with EF 80% Labile hypertension, difficult to control. Having episode of severe hyper tension Discussed compliance with medication, planning to evaluate stress test and evaluate 2D echo Patient is reporting having work-up done at [facility], I do not have access to that record. COPD, seeing and following Dr. Muñoz Chronic dyspnea, multifactorial History of vocal cord paralysis. Resolved Chronic back and joint pain. History of anxiety and depression, currently controlled. History of fatty liver. Chronic tobaccoism which cessation has been advised. Previous hospitalization with narcotic overdose. Gastroesophageal reflux disease with recent GI bleed during hospitalization 02/02/2013 Myofascial pain syndrome and lumbar spondylosis Chronic anemia, managed by her [facility] physician. Morbid obesity, BMI 48, educated on weight loss Clinical Quality Measures AMI/AHF: ASA po Prior to arrival: LIO Topete MD Jun 02, 2023 13:01
[2023-06-02] MEDS: NICOTINE 21 MG PATCH TD SCH (14:50)
[2023-06-02 15:56] VITALS: BP 160/103
[2023-06-02 19:26] VITALS: BP 151/93
[2023-06-02] MEDS: GABAPENTIN 600 MG TABLET PO SCH (20:35)
[2023-06-02] MEDS ORDERED: carvediloL 3.125 MG TABLET PO SCH (21:00)
[2023-06-02] MEDS ORDERED: PANTOPRAZOLE 20 MG TABLET PO SCH (21:00)
[2023-06-02] MEDS ORDERED: MONTELUKAST 10 MG TABLET PO SCH (21:00)
[2023-06-02] MEDS ORDERED: ENOXAPARIN 150 MG/ML SYRINGE SQ ONE (23:52)
[2023-06-03] VITALS (13 sets, daily range): BP systolic 114–179; BP diastolic 81–117
[2023-06-03] MEDS: ENOXAPARIN 300 MG/3 ML MULTI-DOSE VIAL SQ SCH
[2023-06-03] MEDS: ACETAMINOPHEN 500 MG TABLET PO SCH ×4 (00:14→18:12)
[2023-06-03] MEDS: NITROGLYCERIN 2% OINT 1 GM UNIT DOSE PACKET TOP SCH ×4 (00:14→18:12)
[2023-06-03] MEDS: IBUPROFEN 600 MG TABLET PO SCH ×3 (00:14→11:26)
[2023-06-03] MEDS ORDERED: ENOXAPARIN 150 MG/ML SYRINGE SQ ONE (01:00)
[2023-06-03 05:07] LABS: HEMATOCRIT 46 % (35-52); HEMOGLOBIN 13.9 g/dL (11.5-16.0); MEAN CORPUSCULAR HEMOGLOBIN 28 pg (25-34); MEAN CORPUSCULAR HGB CONC 30 g/dL (32-36); MEAN CORPUSCULAR VOLUME 93 fL (80-99); MEAN PLATELET VOLUME 10.3 fL (9.0-12.2); PLATELET COUNT 208 10^3/uL (130-400); WHITE BLOOD COUNT 9.5 10^3/uL (4.3-11.0)
[2023-06-03 05:29] LABS: ALBUMIN 3.6 GM/DL (3.2-4.5); BILIRUBIN,TOTAL 0.6 MG/DL (0.1-1.0); CALCIUM 9.6 MG/DL (8.5-10.1); CREATININE SERUM 0.7 MG/DL (0.60-1.30); MAGNESIUM 1.8 MG/DL (1.6-2.4); POTASSIUM 3.4 MMOL/L (3.6-5.0); TOTAL PROTEIN 6.5 GM/DL (6.4-8.2)
[2023-06-03] MEDS: MAGNESIUM 1 GM/100 ML IVPB 100 ML IV SCH ×3 (05:33→09:07)
[2023-06-03] MEDS: POTASSIUM CL 10MEQ/50ML IVPB 50 ML IV SCH (05:33)
[2023-06-03] MEDS: POTASSIUM CHLORIDE 20 MEQ TABLET PO SCH (05:33)
[2023-06-03] MEDS ORDERED: MAGNESIUM 1 GM/100 ML IVPB 200 ML IV ONE (05:39)
[2023-06-03] MEDS: LEVOTHYROXINE 50 MCG TABLET PO SCH (06:16)
[2023-06-03] MEDS ORDERED: POTASSIUM CHLORIDE 20 MEQ TABLET PO ONE (06:30)
[2023-06-03] MEDS ORDERED: CATHETER FLUSH 10 ML SYR IVP PRN (07:00)
[2023-06-03] MEDS: RT-ALBUTEROL SULF 2.5 MG/3 ML PRE-MIX VIAL INH SCH ×4 (07:57→19:09)
[2023-06-03] MEDS ORDERED: REGADENOSON 0.4 MG/5 ML SYR IV ONE ×2 (08:01→08:30)
[2023-06-03] MEDS ORDERED: meTOprolol INJECTION 5 MG/5 ML VIAL ONE (08:07)
[2023-06-03] MEDS ORDERED: meTOprolol INJECTION 5 MG/5 ML VIAL IV NR (08:30)
[2023-06-03] MEDS ORDERED: NICOTINE PATCH REMOVAL TP SCH (08:59)
[2023-06-03] MEDS ORDERED: carvediloL 6.25 MG TABLET PO SCH (09:00)
[2023-06-03] MEDS: NICOTINE 21 MG PATCH TD SCH (09:04)
[2023-06-03] MEDS: DULoxetine 30 MG CAPSULE PO SCH (09:05)
[2023-06-03] MEDS: ASPIRIN 81 MG CHEWABLE TABLET PO SCH (09:05)
[2023-06-03] MEDS: GABAPENTIN 600 MG TABLET PO SCH (09:05)
[2023-06-03] MEDS: SENNOSIDES 8.6 MG TABLET PO SCH (09:07)
--- NOTE | 2023-06-03 10:12 | Cardiology Progress Note ---
Subjective Date Seen by Provider: Jun 03, 2023 Time Seen by Provider: 08:00 Subjective/Events-last exam Patient is down in heart center for stress test. Denies any active chest pain. c/o headache Objective-Cardiology Exam Last Set of Vital Signs Vital Signs 06/02/23 06/03/23 19:00 11:27 Temp 36.2 Pulse 63 Resp 18 B/P (MAP) 139/92 (108) Pulse Ox 92 O2 Delivery Nasal Cannula O2 Flow Rate 3.50 FiO2 32 I&O Intake and Output 06/03/23 00:00 Intake Total 1350 ml Balance 1350 ml Intake Oral 1350 ml # Voids 7 General: Alert, No Acute Distress Lungs: Clear to Auscultation Heart: Regular Rate Extremities: No Edema Psych/Mental Status: Mental Status NL Results Lab Laboratory Tests 06/03/23 04:25 A/P-Cardiology Admission Diagnosis Chest pain Labile hypertension COPD Dyspnea Assessment/Plan Chest pain nonspecific etiology, history of chronic chest pain, Extensive cardiac work-up was done in the past and it was negative. Currently have T wave inversion in the anterior lateral leads with minimal troponin elevation which could be secondary to LVH and hypertensive urgency. I will continue monitoring troponin, stress test done this morning, results pending Cardiac catheterization done in October 2013 showing normal coronary arteries. Stress test done in 2015 showing no ischemia with EF 80% Labile hypertension, difficult to control. Having episode of severe hypertension Discussed compliance with medication Patient is reporting having work-up done at [facility], I do not have access to that record. COPD, seeing and following Dr. Muñoz Chronic dyspnea, multifactorial History of vocal cord paralysis. Resolved Chronic back and joint pain. History of anxiety and depression, currently controlled. History of fatty liver. Chronic tobaccoism which cessation has been advised. Previous hospitalization with narcotic overdose. Gastroesophageal reflux disease with recent GI bleed during hospitalization 02/02/2013 Myofascial pain syndrome and lumbar spondylosis Chronic anemia, managed by her [facility] physician. Morbid obesity, BMI 48, educated on weight loss Supervisory-Addendum Brief Supervisory Addendum Participated in pt care: history, MDM, physical Personally performed: exam, history, MDM Care discussed with: CYNTHIA Results interpretation: Verified all documentation Notes: Patient was seen and evaluated with Antonella, examination performed, management plan was discussed, agree with the current scribed note, I made few changes to the note using Italic font Patient was seen at bedside, sitting comfortably We discussed the results of her abnormal stress test Recommended cardiac catheterization today Continue to monitor blood pressure and lipids ANTONELLA CARVER Jun 03, 2023 10:12 LIO WRIGHT MD Jun 03, 2023 12:35
[2023-06-03] MEDS ORDERED: NS IV 1000 ML 1,000 ML IV SCH ×2 (10:30→16:30)
[2023-06-03] MEDS ORDERED: HEParin (CATH LAB) 2,000 ML IV ONE (11:30)
[2023-06-03] MEDS ORDERED: LIDOCAINE 1% INJ 20 ML VIAL ONE (11:30)
[2023-06-03] MEDS ORDERED: NS IV 1000 ML 0 ML ONE (11:30)
--- NOTE | 2023-06-03 12:35 | Cardiac Procedure Note-CS/ASA ---
Pre-Procedure Note Pre-Op Procedure Note Date of Available H&P: Jun 03, 2023 Date H&P Reviewed: Jun 03, 2023 Time H&P Reviewed: 12:35 History & Physical: H&P Reviewed, Patient Examed, No changes noted Pre-Operative Diagnosis: CAD Moderate Sedation PreProcedure Time 12:35 ASA Score 3 Airway Lungs Heart ASA score ASA 1: a normal healthy patient ASA 2: a patient with a mild systemic disease (mid diabetes, controlled hypertension, obesity ASA 3: a patient with a severe systemic disease that limits activity (angina, COPD, prior Myocardial infarction) ASA 4: a patient with an incapacitating disease that is a constant threat to life (CHF, renal failure) ASA 5: a moribund patient not expected to survive 24 hrs. (ruptured aneurysm) ASA 6: a declared brain- patient whose organs are being harvested. For emergent operations, add the letter E after the classification Mallampati Classification Grade 3 Sedation Plan Analgesia, Amnesia, Plan communicated to team members, Discussed options with patient/fam, Discussed risks with patient/fam The patient is an appropriate candidate to undergo the planned procedure, sedation, and anesthesia. The patient immediately re-assessed prior to indication. LIO WRIGHT MD Jun 03, 2023 12:35
--- NOTE | 2023-06-03 12:37 | Cardiology Stress Test Report ---
Stress Test Report Date of Procedure/Referring: Date of Procedure: Jun 03, 2023 PCP [facility] Admitting Physician Admitting Physician: Naima Cervantes DO Attending Physician: Liya Haque MD Indications: CP Baseline Heart Rate: 63 Baseline Blood Pressure: Blood Pressure Systolic: 139 Blood Pressure Diastolic: 92 Baseline Vitals Vital Signs Date Time Temp Pulse Resp B/P (MAP) Pulse Ox O2 Delivery O2 Flow Rate FiO2 06/01/23 11:35 95 Nasal Cannula 3.00 06/01/23 11:35 37.1 72 22 141/91 (108) 06/01/23 15:36 32 Baseline EKG: Baseline EKG: NSR Summary After explaining the procedure to the patient, she signed a consent and then brought to the stress nuclear laboratory. Patient received 0.4 mg Lexiscan for stress test, ECG, heart rate and blood pressure were monitored continuously. Resting and stress dose of radio tracer were injected, imaging was acquired and reviewed in short axis, horizontal long axis and vertical long axis views. TID: 1.04 SSS: 9 SDS: 9 EF: 64 Patient tolerated Lexiscan well Breast attenuation with reversible ischemia involving the anterior wall and anterior lateral wall Normal left ventricular size, ejection fraction 64% LIO WRIGHT MD Jun 03, 2023 12:37
[2023-06-03] MEDS ORDERED: ENOXAPARIN 40 MG/0.4 ML SYRINGE SQ SCH (13:00)
--- NOTE | 2023-06-03 14:48 | Progress Note ---
Subjective Subjective/Events-last exam Seen at 1020 am. Still having severe headache, had chest pain with stress test. Waiting on stress test results. Objective Exam Last Set of Vital Signs Vital Signs Date Time Temp Pulse Resp B/P (MAP) Pulse Ox O2 Delivery O2 Flow Rate FiO2 06/03/23 12:27 63 06/03/23 11:27 36.2 18 139/92 (108) 92 Nasal Cannula 3.50 06/02/23 19:00 32 Capillary Refill : Less Than 3 Seconds I&O Intake and Output 06/02/23 23:59 Intake Total 1350 ml Balance 1350 ml Intake Oral 1350 ml # Voids 7 General: Alert, No Acute Distress Lungs: Clear to Auscultation, Normal Air Movement Heart: Regular Rate, No Murmurs Extremities: No Edema Neuro: Normal Speech, Strength at 5/5 X4 Ext, Cranial Nerves 3-12 NL Psych/Mental Status: Mental Status NL Results/Procedures Lab Laboratory Tests 06/03/23 04:25: White Blood Count 9.5, Red Blood Count 4.94, Hemoglobin 13.9, Hematocrit 46, Mean Corpuscular Volume 93, Mean Corpuscular Hemoglobin 28, Mean Corpuscular Hemoglobin Concent 30L, Red Cell Distribution Width 18.8H, Platelet Count 208, Mean Platelet Volume 10.3, Sodium Level 143, Potassium Level 3.4L, Chloride Level 100, Carbon Dioxide Level 34H, Anion Gap 9, Blood Urea Nitrogen 7, Creatinine 0.70, Estimat Glomerular Filtration Rate 107, BUN/Creatinine Ratio 10, Glucose Level 67L, Calcium Level 9.6, Corrected Calcium 9.9, Magnesium Level 1.8, Total Bilirubin 0.6, Aspartate Amino Transf (AST/SGOT) 16, Alanine Aminotransferase (ALT/SGPT) 10, Alkaline Phosphatase 169H, Troponin I 0.049H, Total Protein 6.5, Albumin 3.6 Assessment/Plan Assessment/Plan (1) Elevated troponin Status: Acute Assessment & Plan: Trended up, appreciate Cardiology recommendations. Stress test done this am, awaiting results. (2) Chest pain Status: Acute Assessment & Plan: Concerning for possible ACS, appreciate Cardiology recommendations. Qualifiers: Qualified Codes: R07.9 - Chest pain, unspecified (3) HTN (hypertension) Status: Acute Assessment & Plan: Medications adjusted per Cardiology. (4) Sarcoidosis (5) COPD (chronic obstructive pulmonary disease) Status: Acute (6) Oxygen dependent Status: Chronic (7) DVT prophylaxis Status: Acute Assessment & Plan: Enoxaparin Clinical Quality Measures AMI/AHF: ASA po Prior to arrival: ANGIE Paulson MD Jun 03, 2023 14:48
[2023-06-03] MEDS ORDERED: VERAPAMIL 5 MG/2 ML (CALAN) VIAL IV ONE (15:26)
[2023-06-03] MEDS ORDERED: fentaNYL INJECTION 100 MCG/2 ML VIAL ONE (15:26)
[2023-06-03] MEDS ORDERED: HEParin 1000 UNIT/ML (10ML VIAL) FOR BOLUS ONE (15:27)
[2023-06-03] MEDS ORDERED: MIDAZOLAM INJ 5 MG/5 ML VIAL ONE (15:27)
[2023-06-03] MEDS ORDERED: NITRO DRIP 25000 MCG/D5W 250 ML IV ONE (15:27)
[2023-06-03] MEDS ORDERED: NALOXONE 0.4 MG/ML 1 ML VIAL ONE (16:06)
--- NOTE | 2023-06-03 16:27 | Cardiac Cath Report ---
Cardiac Cath Report Physician (s)/[employer] (s) Physician LIO WRIGHT MD Pre-Procedure Diagnosis Pre-Procedure Diagnosis: CAD Post-Procedure Note Procedure Start Date: Jun 03, 2023 Name of Procedure: Left heart catheterization Findings/Procedure Note PROCEDURE NOTE: 48-year-old lady admitted with acute chest pain, had mild elevation in troponin, had an abnormal stress test with reversible ischemia involving the anterior wall, cardiac catheterization was advised. After explaining the procedure to the patient, all pros and cons were explained, all questions were answered. The patient signed the consent and then she was placed in the cardiac catheterization laboratory. Groin was prepped in SL fashi on local anesthesia was used. Sheath placed in the right radial artery, [place] catheter was advanced to the left ventricular cavity, pressure was measured, pullback LV to aorta was done, engage the right and left coronary system, angiogram was done. At the end of the procedure the sheath was removed. Vascular band was used FINDINGS: Hemodynamics LV 103/21, end-diastolic pressure of 21 Aorta 117/82 mean of 98 ANATOMY: Left Main is free of obstructive disease Left Anterior Descending is slightly tortuous with slow flow due to small vessel disease nonobstructive disease Left Circumflex has no obstructive disease Right Coronary Artery is dominant artery with no obstructive disease LV Gram was not done, known to have normal ejection fraction during stress test. CONCLUSION: Dominant right coronary system, normal coronary system, slow flow in the LAD due to small vessel disease nonobstructive disease Mildly elevated left ventricular end-diastolic pressure due to hypertensive heart disease DISCUSSION AND RECOMMENDATION: Medical therapy is recommended no intervention is needed Anesthesia Type: Conscious Sedation Estimated blood loss (mL): 10 ml Contrast Amount: 35 ml Total Radiation Dose: 595 mGy Post-Procedure Diagnosis Post-operative diagnosis: Chest pain Coronary artery disease Hypertension Sarcoidosis COPD LIO WRIGHT MD Jun 03, 2023 16:27
[2023-06-03] MEDS ORDERED: oxyCODONE IMMEDIATE RELEASE 5 MG TABLET PO ONE (17:45)
[2023-06-03] MEDS ORDERED: ASPI81TA64 PO (18:20)
[2023-06-03] MEDS ORDERED: CARV6.252 PO (18:20)
--- NOTE | 2023-06-03 18:27 | Discharge Summary ---
Discharge Summary Hospital Course Problems/Diagnosis: (1) Elevated troponin Status: Resolved Resolution Date/Time: 06/03/23 @ 18:21 Assessment & Plan: Trended up, appreciate Cardiology recommendations. Stress test done and followed by cardiac cath, no intervention needed per Cardiology. (2) Chest pain Status: Resolved Resolution Date/Time: 06/03/23 @ 18:22 Assessment & Plan: Concerning for possible ACS, appreciate Cardiology recommendations. Qualifiers: Qualified Codes: R07.9 - Chest pain, unspecified (3) HTN (hypertension) Status: Acute Assessment & Plan: Medications adjusted per Cardiology- increased carvedilol dose. (4) Sarcoidosis (5) COPD (chronic obstructive pulmonary disease) Status: Acute (6) Oxygen dependent Status: Chronic Hospital Course Date of Admission: Jun 01, 2023 at 13:51 Admission Diagnosis : Family Physician/Provider: Usman/Malena,[facility] Date of Discharge: 06/03/23 Discharge Diagnosis: See problem list Hospital Course: See problem list Labs and Pending Lab Test: Laboratory Tests 06/03/23 04:25: White Blood Count 9.5, Red Blood Count 4.94, Hemoglobin 13.9, Hematocrit 46, Mean Corpuscular Volume 93, Mean Corpuscular Hemoglobin 28, Mean Corpuscular Hemoglobin Concent 30L, Red Cell Distribution Width 18.8H, Platelet Count 208, Mean Platelet Volume 10.3, Sodium Level 143, Potassium Level 3.4L, Chloride Level 100, Carbon Dioxide Level 34H, Anion Gap 9, Blood Urea Nitrogen 7, Creatinine 0.70, Estimat Glomerular Filtration Rate 107, BUN/Creatinine Ratio 10, Glucose Level 67L, Calcium Level 9.6, Corrected Calcium 9.9, Magnesium Level 1.8, Total Bilirubin 0.6, Aspartate Amino Transf (AST/SGOT) 16, Alanine Aminotransferase (ALT/SGPT) 10, Alkaline Phosphatase 169H, Troponin I 0.049H, Total Protein 6.5, Albumin 3.6 Home Meds Active Children's Aspirin (Aspirin) 81 Mg Tab.chew 81 Mg PO DAILY Carvedilol 6.25 Mg Tablet 6.25 Mg PO BID Reported Hydroxyzine HCl 25 Mg Tablet 25 Mg PO HS PRN Lisinopril-Hctz 20-12.5 mg Tab (Lisinopril/Hydrochlorothiazide) 20 Mg-12.5 Mg Tablet 1 Ea PO DAILY Duloxetine HCl 60 Mg Capsule.dr [place] Mg PO BID Ventolin Hfa (Albuterol Sulfate) 90 Mcg Hfa.aer.ad 2 Puff IH Q4H PRN Levothyroxine Sodium 50 Mcg Tablet 50 Mcg PO DAILY Tizanidine HCl 4 Mg Tablet 4 Mg PO HS Meloxicam 7.5 Mg Tablet 7.5 Mg PO HS Omeprazole 20 Mg Capsule.dr 20 Mg PO HS Montelukast Sodium 10 Mg Tablet 10 Mg PO HS Clonidine HCl 0.1 Mg Tablet 0.1 Mg PO BID PRN Gabapentin 600 Mg Tablet 600 Mg PO BID Assessment/Pt DC Instructions Follow up with primary physician within a week of discharge. Discharge Diet: Cardiac Diet Activity as Tolerated: Yes Discharge Physical Examination Allergies: Coded Allergies: erythromycin base (Verified Allergy, Unknown, PT CAN TAKE AZITHROMYCIN, 06/09/14) minocycline (Verified Adverse Reaction, Mild, N/V, 06/09/14) Clinical Quality Measures AMI/AHF: ASA po Prior to arrival: ANGIE Paulson MD Jun 03, 2023 18:27
== END 2023-06-03 19:30 | disposition home or self-care (01) ==
LOC: EDUNIT# 11:24 → ER 11:26 → CSD 13:51
PROVIDERS: ADMIT Internal Medicine; ATTEND Family Medicine
DX: I25.10 Atherosclerotic heart disease of native coronary artery without angina pectoris (principal); I11.0 Hypertensive heart disease with heart failure; R77.8 Other specified abnormalities of plasma proteins; D86.9 Sarcoidosis, unspecified; J44.9 Chronic obstructive pulmonary disease, unspecified; E78.5 Hyperlipidemia, unspecified; R94.39 Abnormal result of other cardiovascular function study; E66.01 Morbid (severe) obesity due to excess calories; R06.00 Dyspnea, unspecified; G89.29 Other chronic pain; M54.9 Dorsalgia, unspecified; M79.18 Myalgia, other site; M47.816 Spondylosis without myelopathy or radiculopathy, lumbar region; K21.9 Gastro-esophageal reflux disease without esophagitis; D53.9 Nutritional anemia, unspecified; K76.0 Fatty (change of) liver, not elsewhere classified; F17.210 Nicotine dependence, cigarettes, uncomplicated; F41.9 Anxiety disorder, unspecified; F32.A Depression, unspecified; Z99.81 Dependence on supplemental oxygen; Z86.69 Personal history of other diseases of the nervous system and sense organs; Z87.19 Personal history of other diseases of the digestive system; Z68.42 Body mass index [BMI] 45.0-49.9, adult; Z87.898 Personal history of other specified conditions
CPT/HCPCS: 36415; 71045; 78452; 80053; 80061; 83735; 84484; 85025; 85027; 85379; 85610; 85730; 93005; 93017; 93041; 94640; 94760; 96366; 96372; 96375; 96376

== ENCOUNTER 2023-06-07 10:40 | Emergency (ER) | payer MEDICARE, MEDICAID ==
[~2023-06-07] VITALS: Ht 167 cm; Wt 127.5 kg
[~2023-06-07 10:40] MED LIST changes: +ASPI81TA64 PO; +CARV6.252 PO; +HYDR-700 PO; +LISI1TAB46 PO
--- NOTE | 2023-06-07 11:23 | ED Chest Pain ---
General Chief Complaint: Chest Pain Stated Complaint: HEAVINESS IN CHEST/HEADACHE Nursing Triage Note: Pt presents to ER with complaints of chest pain\\pressure with nausea since Friday. Pt reports that she had a heart cath at this facility on Friday evening. Source: patient, old records Exam Limitations: no limitations ([place]) History of Present Illness Date Seen by Provider: Jun 07, 2023 Time Seen by Provider: 11:19 Initial Comments 48 yo F with h/o CHF, COPD, HTN, 3L home O2, and NIDDM presents to the ED for c/o worsening chest heaviness and CHACON with associated nausea and cold sweats that started 3 days ago. Pt was seen on 06/01 for similar symptoms and admitted due to an elevated troponin. Pt had an abnormal stress test and a heart catherization that resulted only small non occlusive disease of LAD. Pt states that at time of discharge on 06/04, she had no pain but later that evening began to again experience the midsternal chest heaviness and frontal CHACON. Pt also states that she began to experience radiation of chest heaviness into L neck, jaw, and into forehead. Pt was seen by Dr. Pettit on 06/05 for her iron infusion where she was recommended to be seen either in the ED or by PCP next day for symptoms. Pt was seen by PCP on 06/06 who again reiterated the need for the pt to be seen in the ED. This prompted pt to go to [place] ED that evening but left after not being seen 3hrs later. This morning, pt continued to experience the chest heaviness and CHACON which prompted her to come to the ED for further evaluation. In room, pt was found to have an O2 sat of 67% on RA that was later corrected to to 91% on 3L O2. Pt states that she does not have a portable air tank at home and therefore was without O2 since leaving home. Notes that she still is only "sometimes" wearing O2 while at home. Pt rates CP a 8/10 and states that it comes and goes and seems to have no inciting event. Notes heart palpitations associated with the CP. Seems worse with movement, better with baby ASA. Pt has been taking 6-8 baby ASA daily to control pain but states pain always returns once medication runs out. Last dose was 2 baby ASA at 4am this morning. CHACON is only present with chest heaviness, mostly frontal, rated a 9/10 and feels like her "head is going to explode". Pt also notes new onset of epigastric abd "pressure" that started this morning and has been constant. Pt has been monitoring her BP at home and states that it has been controlled, last BP was this morning at 121/63. Pt had been taking lovenox while admitted but discontinued upon discharge. Denies vomiting, diarrhea, fevers, new cough, new/worsening SOA, improvement of symptoms with O2, and urinary symptoms. Timing/Duration: 2-3 days Severity/Quality: moderate Location: central, epigastric Radiation: jaw Activities at Onset: none Prior CP/Workup: cardiac cath, stress test Modifying Factors: improves with movement (worse); worse with oxygen; improves with other (better with baby ASA) Associated Symptoms: abdominal pain (epigastric); No diaphoresis, No fever/chills; headache (frontal ), nausea/vomiting (nausea no vomiting); No shortness of breath ([place]) Allergies and Home Medications Allergies Coded Allergies: erythromycin base (Verified Allergy, Unknown, PT CAN TAKE AZITHROMYCIN, 06/09/14) minocycline (Verified Adverse Reaction, Mild, N/V, 06/09/14) Patient Home Medication List Home Medication List Reviewed: Yes ([facility] [place]) Home Medication List Reviewed: Yes (ROBERTO CARLOS JIMENEZ MD) Albuterol Sulfate (Ventolin Hfa) 90 Mcg Hfa.aer.ad, 2 PUFF IH Q4H PRN for SHORTNESS OF BREATH, (Reported) Entered as Reported by: COURTNEY HARDIN on 07/31/22 1030 Aspirin (Children's Aspirin) 81 Mg Tab.chew, 81 MG PO DAILY Prescribed by: ANGIE DAVIS on 06/03/23 1820 Carvedilol (Carvedilol) 6.25 Mg Tablet, 6.25 MG PO BID Prescribed by: ANGIE DAVIS on 06/03/23 182 Clonidine HCl (Clonidine HCl) 0.1 Mg Tablet, 0.1 MG PO BID PRN for ANXIETY, (Reported) Entered as Reported by: MONCHO ULRICH on 01/15/21 1422 Duloxetine HCl (Duloxetine HCl) 60 Mg Capsule.dr, 60 MG PO BID, (Reported) Entered as Reported by: MONCHO ULRICH on 09/26/22 1547 Gabapentin (Gabapentin) 600 Mg Tablet, 600 MG PO BID, (Reported) Entered as Reported by: ANGIE DAVIS on 01/15/21 1359 Hydroxyzine HCl (Hydroxyzine HCl) 25 Mg Tablet, 25 MG PO HS PRN for ANXIETY, (Reported) Entered as Reported by: HANDY MCBRIDE on 06/01/23 1425 Levothyroxine Sodium (Levothyroxine Sodium) 50 Mcg Tablet, 50 MCG PO DAILY, (Reported) Entered as Reported by: COURTNEY HARDIN on 07/31/22 1029 Lisinopril/Hydrochlorothiazide (Lisinopril-Hctz 20-12.5 mg Tab) 20 Mg-12.5 Mg Tablet, 1 EA PO DAILY, (Reported) Entered as Reported by: HANDY MCBRIDE on 06/01/23 1425 Meloxicam (Meloxicam) 7.5 Mg Tablet, 7.5 MG PO HS, (Reported) Entered as Reported by: COURTNEY HARDIN on 07/31/22 1029 Montelukast Sodium (Montelukast Sodium) 10 Mg Tablet, 10 MG PO HS, (Reported) Entered as Reported by: MONCHO ULRICH on 01/15/21 1422 Omeprazole (Omeprazole) 20 Mg Capsule.dr, 20 MG PO HS, (Reported) Entered as Reported by: MONCHO ULRICH on 01/15/21 1422 Tizanidine HCl (Tizanidine HCl) 4 Mg Tablet, 4 MG PO HS, (Reported) Entered as Reported by: COURTNEY HARDIN on 07/31/22 1029 Discontinued Medications Carvedilol (Carvedilol) 3.125 Mg Tablet, 3.125 MG PO BID, (Reported) Discontinued Reason: Prescription changed Entered as Reported by: MONCHO ULRICH on 01/15/21 1422 Review of Systems Review of Systems Constitutional: no symptoms reported; No chills, No fever EENTM: No Symptoms Reported Respiratory: No Symptoms Reported, Shortness of Air (chronic, no worsening) Cardiovascular: Chest Pain (pressure ), Palpitations (associated with chest pressure) Gastrointestinal: Denies Abdomen Distended; Abdominal Pain (epigastric pressure); Denies Constipated, Denies Diarrhea; Nausea Genitourinary: No Symptoms Reported Musculoskeletal: no symptoms reported Skin: no symptoms reported Psychiatric/Neurological: No Symptoms Reported Endocrine: No Symptoms Reported Hematologic/Lymphatic: No Symptoms Reported ([place]) All Other Systems Reviewed Negative Unless Noted: Yes ([facility] [place]) Past Xskllno-Xbjame-Tyyref Hx Patient Social History Tobacco Use?: Yes Tobacco type used: Cigarettes Smoking Status: Current Everyday Smoker Use of E-Cig and/or Vaping dev: No Substance use?: No Alcohol Use?: No Pt feels they are or have been: No ([place]) Immunizations Up To Date Tetanus Booster (TDap): Less than 5yrs Influenza Vaccine Up-to-Date: No; Not Current First/Initial COVID19 Vaccinat: N Second COVID19 Vaccination Justin: Kamila Third COVID19 Vaccination Date: ([place]) Seasonal Allergies Seasonal Allergies: No ([place] [place]) Past Medical History Surgery/Hospitalization HX: COPD, 3L HOME O2 PRN AND AT NIGHT, CHF, Asthma, Fibromyalgia, DDD, HTN Surgeries: Yes (BACK SX;R knee scope;L vocal cord sx;mediastinoscopy;CO LONOSCOPY/POLYPECTOM) Appendectomy, Gallbladder, Orthopedic, Tonsillectomy Respiratory: Yes (sarcoidosis, uses oxygen via nasal cannula continuously) Sleep Apnea, COPD Currently Using CPAP: No Currently Using BIPAP: No Cardiac: Yes (CHF;PULMONARY HTN) High Cholesterol, Hypertension Neurological: Yes Headaches /Migraines, Neuropathy Reproductive Disorders: No Female Reproductive Disorders: Menstrual Problems, Ovarian Cyst Sexually Transmitted Disease: No HIV/AIDS: No Genitourinary: Yes Renal Failure, UTI-Chronic Gastrointestinal: Yes (FATTY LIVER DISEASE) Gastroesophageal Reflux, Liver Disease/Jaundice, Gastrointestinal Bleed, Polyps, Esophagitis, Hiatal Hernia Musculoskeletal: Yes ( RESTLESS LEG SYNDROME) Arthritis, Fibromyalgia, Chronic Back Pain Endocrine: Yes (MORBID OBESITY) Hypothyroidsim, Diabetes, Non-Insulin dep HEENT: Yes ("VOCAL CORD DYSFUNCTION" ) Dysphagia Cancer: No Psychosocial: Yes (NARCOTIC OVERDOSE 12/2012) Anxiety, Depression Integumentary: Yes (CHRONIC LEFT LEG CELLULITIS) Recent Skin Changes Blood Disorders: No Adverse Reaction/Blood Tranf: No ([place]) Family Medical History Family history: Hypertension 09 SISTER (43 ) Family history: Thyroid disorder 03 MOTHER (41 ) Stroke 03 FATHER (47 ) Heart Disease, Hypertension SOCIAL HISTORY: -SMOKES 2 PPD -DENIES ETOH -DENIES DRUG USE 09/25/22--COLONOSOCPY + POLYPECTOMY BY DR. ELIZABETH Pre-Operative Diagnosis screening colo Post-Operative Diagnosis chronic stage 2 ext and int hemorrhoids, pedunculated polyp proximal(5mm) and distal(2mm)colon Procedure & Operative Findings Date of Procedure 09/25/22 Procedure Performed/Findings colonoscopy with bx and snare polypectomy ([place]) Physical Exam Vital Signs Vital Signs - First Documented 06/07/23 10:45 Pulse 74 Resp 20 B/P (MAP) 118/68 (85) Pulse Ox 93 O2 Delivery Nasal Cannula O2 Flow Rate 3.00 (ROBERTO CARLOS JIMENEZ MD) Vital Signs Capillary Refill : Less Than 3 Seconds ([facility] [place]) Height, Weight, BMI Height: 5'6.00" Weight: 310lbs. 8.0oz. [id number]; 45.00 BMI Method:Stated General Appearance: No Apparent Distress, Obese HEENT: PERRL/EOMI Neck: Non Tender, Supple Respiratory: Lungs Clear, Normal Breath Sounds, No Accessory Muscle Use, No Respiratory Distress, Other (worsening pressure of chest with palpation of sternum ) Cardiovascular: Regular Rate, Rhythm, No Murmur Gastrointestinal: Normal Bowel Sounds, Soft, Tenderness (epigastrium) Extremity: Non Tender, No Calf Tenderness Neurologic/Psychiatric: Alert, Oriented x3, No Motor/Sensory Deficits, Normal Mood/Affect Skin: Normal Color, Warm/Dry, Other (bruising along abdomen, likely secondary to anticoagulation during admission) Lymphatic: No Adenopathy ([place]) Procedures/Interventions Suture Size: 5-0 ([facility] [place]) Progress/Results/Core Measures Results/Orders Lab Results Laboratory Tests Test 06/07/23 11:05 Range/Units White Blood Count 11.3 H 4.3-11.0 10^3/uL Red Blood Count 5.36 H 3.80-5.11 10^6/uL Hemoglobin 15.2 11.5-16.0 g/dL Hematocrit 50 35-52 % Mean Corpuscular Volume 93 80-99 fL Mean Corpuscular Hemoglobin 28 25-34 pg Mean Corpuscular Hemoglobin Concent 31 L 32-36 g/dL Red Cell Distribution Width 20.4 H 10.0-14.5 % Platelet Count 260 130-400 10^3/uL Mean Platelet Volume 10.8 9.0-12.2 fL Immature Granulocyte % (Auto) 0 % Neutrophils (%) (Auto) 79 H 42-75 % Lymphocytes (%) (Auto) 13 12-44 % Monocytes (%) (Auto) 6 0-12 % Eosinophils (%) (Auto) 1 0-10 % Basophils (%) (Auto) 0 0-10 % Neutrophils # (Auto) 8.9 H 1.8-7.8 10^3/uL Lymphocytes # (Auto) 1.5 1.0-4.0 10^3/uL Monocytes # (Auto) 0.7 0.0-1.0 10^3/uL Eosinophils # (Auto) 0.1 0.0-0.3 10^3/uL Basophils # (Auto) 0.1 0.0-0.1 10^3/uL Immature Granulocyte # (Auto) 0.1 0.0-0.1 10^3/uL Prothrombin Time 13.1 12.2-14.7 SEC INR Comment 1.0 0.8-1.4 Activated Partial Thromboplast Time 34 24-35 SEC Sodium Level 140 135-145 MMOL/L Potassium Level 3.7 3.6-5.0 MMOL/L Chloride Level 95 L 98-107 MMOL/L Carbon Dioxide Level 30 21-32 MMOL/L Anion Gap 15 H 5-14 MMOL/L Blood Urea Nitrogen 9 7-18 MG/DL Creatinine 0.74 0.60-1.30 MG/DL Estimat Glomerular Filtration Rate 100 BUN/Creatinine Ratio 12 Glucose Level 90 70-105 MG/DL Calcium Level 10.0 8.5-10.1 MG/DL Corrected Calcium 10.1 8.5-10.1 MG/DL Magnesium Level 1.8 1.6-2.4 MG/DL Total Bilirubin 1.0 0.1-1.0 MG/DL Aspartate Amino Transf (AST/SGOT) 21 5-34 U/L Alanine Aminotransferase (ALT/SGPT) 14 0-55 U/L Alkaline Phosphatase 224 H 40-136 U/L Troponin I 0.028 <0.028 NG/ML Total Protein 7.5 6.4-8.2 GM/DL Albumin 3.9 3.2-4.5 GM/DL (ROBERTO CARLOS JIMENEZ MD) My Orders Orders - ROBERTO CARLOS JIMENEZ MD Ekg Tracing (06/07/23 10:50) Continuous Ekg Monitoring (06/07/23 10:50) Cbc With Automated Diff (06/07/23 11:19) Magnesium (06/07/23 11:19) Chest 1 View, Ap/Pa Only (06/07/23 11:19) Comprehensive Metabolic Panel (06/07/23 11:19) Protime With Inr (06/07/23 11:19) Partial Thromboplastin Time (06/07/23 11:19) O2 (06/07/23 11:19) Monitor-Rhythm Ecg Trace Only (06/07/23 11:19) Lipid Panel (06/08/23 06:00) Ed Iv/Invasive Line Start (06/07/23 11:19) Troponin I Esau (06/07/23 11:19) Aspirin Chewable Tablet (Aspirin Chewabl (06/08/23 09:00) Ns Iv 1000 Ml (Ns Iv 1000 Ml) (06/07/23 11:45) Ct Angio Chest W (06/07/23 11:50) Aspirin Chewable Tablet (Aspirin Chewabl (06/07/23 11:49) Iohexol Injection (Omnipaque 350 Mg/Ml 1 (06/07/23 12:00) Received Contrast (Hold Metformin- Contr (06/07/23 12:00) Ns (Ivpb) 100 Ml (Sodium Chloride 0.9% 1 (06/07/23 12:00) (ROBERTO CARLOS JIMENEZ MD) Medications Given in ED Current Medications Medications Dose Ordered Sig/Simon Route Start Time Stop Time Status Last Admin Dose Admin Iohexol 100 ml ONCE ONCE IV 06/07/23 12:00 06/07/23 12:09 DC 06/07/23 13:05 88 ML Sodium Chloride 100 ml ONCE ONCE IV 06/07/23 12:00 06/07/23 12:09 DC 06/07/23 13:05 100 ML (ROBERTO CARLOS JIMENEZ MD) Vital Signs/I&O 06/07/23 10:45 Pulse 74 Resp 20 B/P (MAP) 118/68 (85) Pulse Ox 93 O2 Delivery Nasal Cannula O2 Flow Rate 3.00 (ROBERTO CARLOS JIMENEZ MD) Blood Pressure Mean: 85 Progress Progress Note : Time: 14:01 Progress Note Patient seen and examined by me. I have reviewed the medical student's documentation and agree. Evaluation today includes physical exam, "cardiac work-up" to include CBC, Chem-12, serum troponin, magnesium, coag panel, EKG, single view chest x-ray. The patient also underwent CT angiogram of the chest to rule out pulmonary embolism. Pertinent physical exam findings obese female in who appears older than stated age. She speaks in a whispered voice due to prior vocal cord damage. She was initially 63% on room air, quickly supplemented at 3 to 4 L per nasal cannula and back up to 96/97%. Patient's blood pressure has been within the normal range 115 systolic to 120 systolic. Heart rate regular in the mid 60s. Respiratory rate 14. She has relatively clear breath sounds diminished at the bases no expiratory wheezes or distress is noted. She has 1+ pitting edema to the bilateral lower extremities. No abdominal tenderness. No focal neurologic deficits. Smells strongly of tobacco smoke. Differential diagnosis based on history and physical exam, pulmonary embolism, chest wall pain, pleurisy, gastroesophageal reflux disease. Patient was seen and evaluated earlier in the week by me admitted to the hospital for NSTEMI. Had cardiac catheterization which showed small vessel disease in the LAD system. She was not started on any type of anticoagulation. She remains in a normal sinus rhythm. Her echo revealed 50 to 55% EF with normal systolic and diastolic function. She has known severe sarcoidosis. She has had prior respiratory failure due to her sarcoidosis and COPD. She denies fevers or chills, productive cough. The pain in her chest has been intermittent and in retrospect likely mostly precipitated by lack of her oxygen usage. When she presented today she was having fairly significant pain at a "8" with room air sats of 63%. Treated in the emergency department with oxygen supplementation and full-strength baby aspirin. Patient was reexamined after the aspirin and supplemental oxygen and her symptoms were improving. She was given a normal saline bolus of 1 L in preparation of the IV contrast dye with the CT angiogram. Labs are reviewed and interpreted independently by me. Her CBC is normal with a white blood cell count of minimal elevation 11.3. 79% segmented neutrophils. Normal hemoglobin, hematocrit and platelets. Her chemistry is generally unremarkable with a troponin of 0.028. Normal magnesium. Normal renal function. Coags within normal limits. Chest x-ray read demonstrates cardiomegaly. CT angiogram of the chest shows severe sarcoidosis of the lungs, no obvious pulmonary embolism or other acute pathology. Patient has no ongoing concerns at this time for acute pulmonary or vascular pathology. While we did not do a dedicated CT angio of the aorta I have limited concern for this being dissection or aneurysm. She does not have pneumonia. She has had demonstrated normal coronary arteries. Will recommend low-dose NSAID such as naproxen 250 mg twice daily for short-term, 5 to 7 days. We have contacted [facility] to provide her a smaller oxygen tank that is more amenable to travel. Patient has scheduled follow-up with her primary care provider early next week. Return precautions have been provided. All questions are sought and answered (ROBERTO CARLOS JIMENEZ MD) Initial ECG Impression Date: Jun 07, 2023 Initial ECG Impression Time: 10:55 Initial ECG Rate: 75 Initial ECG Rhythm: Normal Sinus Initial ECG Intervals MD 161 QRS 110 QTc 445 Comment T eave inversion inferior leads with ST flattening V4,5,6; incomplete RBBB; no ST elevation; no ectopy (ROBERTO CARLOS JIMENEZ MD) Diagnostic Imaging Diagonstic Imaging: Xray Plain Films/CT/US/NM/MRI: chest Comments [facility], [place] NAME: TUAN ORANTES [facility] REC#: [id number] PT STATUS: REG ER : 1975 PHYSICIAN: ROBRETO CARLOS JIMENEZ MD ADMIT DATE: 06/07/23/ER Draft Date of Exam:06/07/23 CHEST 1 VIEW, AP/PA ONLY CHEST 1 VIEW, AP/PA ONLY. Indication: Chest pain. Comparison: 06/01/2023. Findings: Stable enlargement of the cardiac silhouette. Central vascular congestion is unchanged. No consolidations have developed. No pleural effusion or pneumothorax. Impression: Cardiomegaly with central vascular congestion. No perez pulmonary edema. Dictated on workstation # [id number] Dict: 06/07/23 1140 Trans: 06/07/23 1141 [id number] Interpreted by: PENNIE KAUFMAN MD Electronically signed by: (ROBERTO CARLOS JIMENEZ MD) Counseling-Symptomatic: 3-10 Minutes Follow-up with PCP to: Discuss Further Options (ROBERTO CARLOS JIMENEZ MD) Departure Impression Primary Impression: Atypical chest pain Additional Impressions: Tobacco use disorder Sarcoidosis of lung Hypoxia Disposition: HOME, SELF-CARE Condition: Improved Departure-Patient Inst. Decision time for Depature: 14:07 (ROBERTO CARLOS JIMENEZ MD) Referrals: [facility] [place]) Primary Care Physician Patient Instructions: Chest Pain That Is Not Caused by the Heart (DC) Add. Discharge Instructions: It appears that you need to use your oxygen continuously while at home. Since you will need to be doing this it is very important that you quit smoking. Never smoke while wearing your oxygen. You can try [id number] Aleve or generic equivalent 1 tablet which is 250 mg twice daily with food for pain. Continue your omeprazole 20 mg tablets for acid reflux/heartburn every night. I believe it would be a good idea to call Dr. Garcia's office for a follow-up appointment to further monitor your heart function. Please keep your follow-up appointment with your primary care provider. Return to the emergency department for any new, concerning or emergent complaints Verification and Attestation of Medical Student E/M Service A medical student performed and documented this service in my presence. I reviewed and verified all information documented by the medical student and made modifications to such information, when appropriate. I personally performed the physical exam and medical decision making. Roberto Carlos Jimenez, Jun 07, 2023,14:09 (ROBERTO CARLOS JIMENEZ MD) Copy Copies To 1: JESSE LOPEZ TAYLOR Jun 07, 2023 11:23 ROBERTO CARLOS JIMENEZ MD Jun 07, 2023 12:06
[2023-06-07 11:30] LABS: BASOPHILS # (AUTO) 0.1 10^3/uL (0.0-0.1); BASOPHILS % (AUTO) 0 % (0-10); EOSINOPHILS # (AUTO) 0.1 10^3/uL (0.0-0.3); EOSINOPHILS % (AUTO) 1 % (0-10); HEMATOCRIT 50 % (35-52); HEMOGLOBIN 15.2 g/dL (11.5-16.0); LYMPHOCYTES # (AUTO) 1.5 10^3/uL (1.0-4.0); LYMPHOCYTES % (AUTO) 13 % (12-44); MEAN CORPUSCULAR HEMOGLOBIN 28 pg (25-34); MEAN CORPUSCULAR HGB CONC 31 g/dL (32-36); MEAN CORPUSCULAR VOLUME 93 fL (80-99); MEAN PLATELET VOLUME 10.8 fL (9.0-12.2); MONOCYTES # (AUTO) 0.7 10^3/uL (0.0-1.0); MONOCYTES % (AUTO) 6 % (0-12); NEUTROPHILS # (AUTO) 8.9 10^3/uL (1.8-7.8); NEUTROPHILS % (AUTO) 79 % (42-75); PLATELET COUNT 260 10^3/uL (130-400); WHITE BLOOD COUNT 11.3 10^3/uL (4.3-11.0)
[2023-06-07 11:40] LABS: ALBUMIN 3.9 GM/DL (3.2-4.5); POTASSIUM 3.7 MMOL/L (3.6-5.0)
[2023-06-07 11:42] LABS: PROTHROMBIN TIME PATIENT 13.1 SEC (12.2-14.7); TOTAL PROTEIN 7.5 GM/DL (6.4-8.2)
--- NOTE | 2023-06-07 11:42 | Diagnostic Imaging Report ---
CHEST 1 VIEW, AP/PA ONLY. Indication: Chest pain. Comparison: 06/01/2023. Findings: Stable enlargement of the cardiac silhouette. Central vascular congestion is unchanged. No consolidations have developed. No pleural effusion or pneumothorax. Impression: Cardiomegaly with central vascular congestion. No perez pulmonary edema. Dictated by: Dictated on workstation # [id number]
[2023-06-07] MEDS ORDERED: NS IV 1000 ML 1,000 ML IV STA (11:45)
[2023-06-07 11:46] LABS: CREATININE SERUM 0.74 MG/DL (0.60-1.30)
[2023-06-07 11:49] LABS: MAGNESIUM 1.8 MG/DL (1.6-2.4)
[2023-06-07] MEDS ORDERED: ASPIRIN 81 MG CHEWABLE TABLET ONE (11:49)
[2023-06-07] MEDS ORDERED: IOHEXOL 350 MG/ML 100 ML (OMNIPAQUE 350) VIAL IV ONE (12:00)
[2023-06-07] MEDS ORDERED: HOLD METFORMIN - RECEIVED CONTRAST 20 ML VIAL IV SCH (12:00)
[2023-06-07] MEDS ORDERED: NS 100 ML (IVPB) BAG IV ONE (12:00)
--- NOTE | 2023-06-07 13:24 | Diagnostic Imaging Report ---
PROCEDURE: CT angiography chest. TECHNIQUE: After intravenous administration of contrast, thin section axial CT angiography of the chest was performed. 3D MIP reconstructions were made. All CT scans use one or more of the following dose optimizing techniques: automated exposure control, MA and/or KvP adjustment based on a patient size and exam type, or iterative reconstruction. INDICATION: Atypical chest pain. Sarcoidosis. COMPARISON: 05/19/2023. FINDINGS: Vasculature: No pulmonary emboli. Stable marked enlargement of the pulmonary trunk measuring 4.7 cm. There is also mild flattening of the intraventricular septum, likely due to chronic elevated right ventricular pressures. There is reflux of contrast material into the IVC and hepatic veins. Thoracic aorta is normal in caliber. No aortic dissection or pseudoaneurysm. Heart and mediastinum: Visualized thyroid is normal. No supraclavicular or axillary lymphadenopathy. Mildly enlarged mediastinal lymph nodes are unchanged. No new lymphadenopathy. Small pericardial effusion is unchanged. Pleura: No pleural effusion or pneumothorax. Lungs and airway: No endoluminal lesion in the trachea or central bronchi. Stable mosaic attenuation throughout the lungs, greatest in the lung apices. Upper abdomen: No concerning abnormality in the upper abdomen. Musculoskeletal: No concerning osseous lesion. IMPRESSION: 1. No pulmonary emboli. 2. Unchanged marked enlargement of the pulmonary trunk from pulmonary hypertension. 3. Stable mosaic attenuation throughout the lungs that may be sequelae of the patient's sarcoidosis. Atypical pulmonary edema is also a possibility. Dictated by: Dictated on workstation # [id number]
[2023-06-07 15:19] VITALS: BP 118/53
[2023-06-08] MEDS ORDERED: ASPIRIN 81 MG CHEWABLE TABLET PO SCH (09:00)
== END 2023-06-07 15:20 | disposition home or self-care (01) ==
LOC: EDUNIT# 10:40 → ER 10:42
DX: D86.0 Sarcoidosis of lung (principal); R09.02 Hypoxemia; F17.210 Nicotine dependence, cigarettes, uncomplicated; I45.10 Unspecified right bundle-branch block; J44.9 Chronic obstructive pulmonary disease, unspecified; E66.01 Morbid (severe) obesity due to excess calories; Z68.42 Body mass index [BMI] 45.0-49.9, adult; Z79.82 Long term (current) use of aspirin; Z99.81 Dependence on supplemental oxygen
CPT/HCPCS: 36415; 71045; 71275; 80053; 83735; 84484; 85025; 85610; 85730; 93005; 93041